=== PATIENT | female | born 1950 | race Caucasian/White ===

== ENCOUNTER 2023-07-01 15:15 | Outpatient (OUT) | payer MEDICARE, OTHER, SELFPAY ==
--- NOTE | 2023-07-01 15:29 | XR_ITS ---
The [address] [address] Patient Name: LAURA LAWSON MRN: [id number] date: 1950 Sex: F Assigned Patient Location: [facility] Current Patient Location: [facility] Accession/Order Number: [id number] Exam Date: 07/01/2023 15:34 Report Date: 07/01/2023 16:02 At the request of: ABRAHAM REILLY Procedure: XR chest 2V EXAM: XR chest 2V HISTORY: acute bronchitis J20.9 ; technologist notes state bronchitis and shortness of breath. COMPARISON: None. TECHNIQUE: PA and lateral views of the chest performed. FINDINGS: The trachea is unremarkable. There is mild enlargement of the cardiac mediastinal silhouette which is partially secured. There is mild atheromatous calcification at the aortic arch. There are low lung volumes with moderate elevation of the left hemidiaphragm. There is compressive atelectasis associated with the elevated left hemidiaphragm. There are patchy densities within the left perihilar region suggesting atelectasis and/or infiltrate. There is peribronchial cuffing at both hilar regions and be associated with bronchitis. There is no pleural effusion or pulmonary vascular congestion. There is no pneumothorax. The bony structures are osteopenic. There is no acute osseous adenopathy. There are moderate degenerative changes at the acromioclavicular and glenohumeral articulations bilaterally. There are endplate spurs along the spine. XR/XR chest 2V IMPRESSION: There are low lung volumes with moderate elevation of the left hemidiaphragm. There is compressive atelectasis associated with the elevated left hemidiaphragm. There are patchy densities within the left perihilar region suggesting atelectasis and/or infiltrate. There is also peribronchial cuffing within both hilar regions which can be associated with a bronchitis. Electronically authenticated by: GEREMIAS ROBERTS Date: 07/01/2023 16:02
== END 2023-07-01 15:16 | disposition home or self-care (01) ==
LOC: RAD 15:20
PROVIDERS: PCP Internal Medicine; Visit Provider Internal Medicine
DX: J20.9 Acute bronchitis, unspecified (principal)
CPT/HCPCS: 71046

== ENCOUNTER 2023-07-02 11:32 | Emergency (ER) | payer MEDICARE, OTHER, SELFPAY ==
[2023-07-02] VITALS (64 sets, daily range): BP systolic 153–207; BP diastolic 57–107; PULSE 53–150; RESP 16–33; TEMP 36.8; O2SAT 83–97; BMI 46.5
--- NOTE | 2023-07-02 12:07 | ECG_ITS ---
The [facility] Test Date: 2023-07-02 Pat Name: LAURA LAWSON Department: Room: - Gender: Female [employer]: : 1950 Requested By: ABRAHAM REILLY Order Number: [id number] Reading MD: EZIO SAMUELS Measurements Intervals [place] Rate: 67 P: 45 AK: 226 QRS: 150 QRSD: 124 T: -16 QT: 424 QTc: 439 Interpretive Statements 1100 Sinus rhythm 2231 First degree AV block LEFT BUNDLE BRANCH BLOCK with secondary ST/T waVE changes 5120 Possible right ventricular hypertrophy ST/T wave changes, can't exclude inferior ischemia 9150 abnormal ECG Electronically Signed On 07-03-2023 7:07:20 EST by EZIO SAMUELS
--- OUTSIDE RECORDS SUMMARY | 2023-07-02 12:24 | XMS_ITS | CCD ---
Author Name Unknown Address [address] [place] [address] Organization [facility] Care Team Providers Care Political Worker Name Role Phone PHYSICIAN, DEFAULT Admitting Unavailable PHYSICIAN, DEFAULT Attending Unavailable VLAD CESAR Primary Care Unavailable PHYSICIAN, DEFAULT Admitting Unavailable PHYSICIAN, DEFAULT Attending Unavailable VLAD CESAR Primary Care Unavailable Devang Saavedra Unavailable Abner Roa Unavailable MD Abner Roa Attending Provider MARK Cesar Primary Care Provider MD Abner Roa Admit Provider MARK Cesar Primary Care Provider MD Abner Roa Attending Provider MD Chidi Bowen Admit Provider MD Chidi Bowen Attending Provider KENDALL Mancilla Other Provider Unavailable KENDALL Linares Other Provider Unavailable KENDALL Benson Other Provider Unavailable KENDALL Borges Other Provider Unavailable KENDALL Luong Other Provider Unavailable KENDALL Gardner Other Provider Unavailable MD Meliton Schwartz Other Provider MD Fred Nash Other Provider DOTTY Serrano Other Provider DO Yesi Dickens Other Provider MD Alfredo Lacy Other Provider DO Graeme Davey Other Provider MD James Child Other Provider MD Chel Juarez Other Provider Kimmie, ANP-BC Tuyet Other Provider [phone] MD Justine Mercedes Other Provider MD Regan Hernandez Other Provider MD Adis Cote Other Provider MD Michael Vang Other Provider DO Anton Lane Other Provider MD Awais Bunn Other Provider MD Sonia Mckeon Other Provider MD Boubacar Weston Other Provider Solis NEGATIVE TURNER-C Latonia Fisher Other Provider MD Roman Rosales Other Provider MD Riccardo Jenkins Other Provider MD Edie Granados Other Provider MD Eddy Luu Other Provider DO Laine Swan Other Provider Al MD Clemente Servin Other Provider DO Edwardo Ramirez Other Provider DO Ziggy Vernon Other Provider DOTTY Degroot Other Provider DO Noam Albarado Other Provider MD Jacobo Montes Other Provider Kristie, RN Fariha Other Provider Unavailable MARK Cesar Primary Care Provider [phone] MD Abner Roa Admit Provider MD Abner Roa Attending Provider MD Chidi Bowen Admit Provider MD Chidi Bowen Attending Provider KENDALL Mancilla Other Provider Unavailable KENDALL Linares Other Provider Unavailable KENDALL Benson Other Provider Unavailable KENDALL Borges Other Provider Unavailable KENDALL Luong Other Provider Unavailable KENDALL Gardner Other Provider Unavailable MD Meliton Schwartz Other Provider MD Fred Nash Other Provider DOTTY Serrano Mirtha M Other Provider DO Yesi Dickens Other Provider MD Alfredo Lacy Other Provider DO Graeme Davey Other Provider MD James Child Other Provider MD Chel Juarez Other Provider Kimmie, ANP-BC Tuyet Other Provider MD Justine Mercedes Other Provider MD Regan Hernandez Other Provider MD Adis Cote Other Provider MD Michael Vang Other Provider DO Anton Lane Other Provider MD Awais Bunn Other Provider MD Sonia Mckeon Other Provider MD Boubacar Weston Other Provider SHANDRA Ely-Dodie Fisher Other Provider MD Roman Rosales Other Provider MD Riccardo Jenkins Other Provider MD Edie Granados Other Provider MD Eddy Luu Other Provider DO Laine Swan Other Provider MD Clemente Dempsey Other Provider DO Edwardo Ramirez R Other Provider DO Janeen Ziggy Mona Other Provider DOTTY Degroot Other Provider DO Noam Albarado Other Provider [phone] MD Jacobo Montes Other Provider KENDALL Flowers Other Provider Unavailable Cesar, II Vlad Primary Care Provider MD Abner Roa Attending Provider Cesar, II Vlad Primary Care Provider MD Abner Roa Attending Provider CESAR, DR ROSARIO Primary Care Unavailable HAY ., DR PRICE Attending Unavailable HAY ., DR PRICE Consulting Unavailable HAY ., DR PRICE Admitting Unavailable RUSSELL YATES Consulting Unavailable CESAR, DR ROSARIO Attending Unavailable CESAR, DR ROSARIO Consulting Unavailable CESAR, DR ROSARIO Primary Care Unavailable CESAR, DR ROSARIO Admitting Unavailable CESAR, DR ROSARIO Admitting Unavailable CESAR, DR ROSARIO Attending Unavailable CESAR, DR ROSARIO Consulting Unavailable CESAR, DR ROSARIO Primary Care Unavailable JULITO HERNANDEZ Attending Unavailable RAMÓN GARCIA Attending Unavailable Cesar, II Vlad Primary Care Provider [phone] MD Abner Roa Attending Provider Rai Roae E Admitting Unavailable Abner Roa E Attending Unavailable Vlad Cesar Primary Care Unavailable RoaRaie E Admitting Unavailable RoaRaie E Attending Unavailable Vlad Cesar Primary Care Unavailable Roa, Abner E Admitting Unavailable RoaAbner E Attending Unavailable Vlad Cesar Primary Care Unavailable RoaRaie E Admitting Unavailable RoaAbner E Attending Unavailable Vlad Cesar Primary Care Unavailable Roa, Abner E Admitting Unavailable Roa, Abner E Attending Unavailable Vlad Cesar Primary Care Unavailable VLAD CESAR Attending Unavailable MYA FELIX Attending Unavailable VLAD CESAR Attending Unavailable Allergies Allergy Classification Reported Allergen(s) Allergy Type Date of Onset Reaction(s) Facility (1 source) 08242,00; Translations: [80808,00] Propensity to adverse reactions (disorder) 11-11-200 9 [facility] Repository (17 sources) gabapentin Drug Allergy 2 chest pain [facility] (9 sources) traMADol; Translations: [tramadol] Drug Allergy 2 sleeplessness [facility] (1 source) gabapentin Drug Allergy 2 [facility] Repository Medications Current Medications Medication Drug Class(es) Dates Sig (Normalized) Sig (Original) acetaminophen 325 mg oral tablet (11 sources) Start: 03-21-2022 End: 04-03-2022 take 650 mg by mouth every four hours Acetaminophen Active 650 MG PO Q4H 100 April 03, 2022 12:00am allopurinol 300 mg oral tablet (20 sources) Xanthine Oxidase Inhibitor Start: 03-05-2022 End: 04-03-2022 take 300 mg by mouth once daily Allopurinol Active 300 MG PO Daily April 03, 2022 12:00am Aspir-81 (15 sources) Aspir-81 Active aspirin 81 mg delayed release oral tablet (13 sources) Platelet Aggregation Inhibitor, Nonsteroidal Anti-inflammatory Drug Start: 03-05-2022 End: 04-03-2022 take 81 mg by mouth once daily Aspirin Active 81 MG PO Daily April 03, 2022 12:00am atorvastatin 40 mg oral tablet (15 sources) HMG-CoA Reductase Inhibitor Start: 03-05-2022 End: 04-03-2022 take 40 mg by mouth once daily in the evening Atorvastatin Active 40 MG PO Every evening April 03, 2022 12:00am baclofen 10 mg oral tablet (20 sources) gamma-Aminobutyric Acid-ergic Agonist Start: 03-05-2022 End: 04-03-2022 take 10 mg by mouth once daily at bedtime Baclofen Active 10 MG PO Daily at bedtime April 03, 2022 12:00am bumetanide 1 mg oral tablet (20 sources) Loop Diuretic Start: 03-05-2022 End: 04-03-2022 take 1 mg by mouth once daily Bumetanide Active 1 MG PO Daily April 03, 2022 12:00am calcium carbonate 1250 mg oral tablet (13 sources) Start: 04-03-2022 Calcium Carbonate (Oyster Shell Calcium 500) 500 mg calcium (1,250 mg) Tablet Active 1000 MG PO Daily 60 April 03, 2022 12:00am Start: 03-05-2022 End: 04-03-2022 Calcium Carbonate (Calcium 6 00) 600 mg calcium (1,500 mg) Tablet Discontinued 1200 MG PO Daily March 05, 2022 12:00am April 03, 2022 8:52am Calcium Citrate (15 sources) take 1 tablet by mouth once daily Calcium Citrate 333 MG 1 tablet Orally Once a day Active cyclobenzaprine hydrochloride 10 mg oral tablet (11 sources) Muscle Relaxant Start: 03-21-20 End: 04-03-20 take 10 mg by mouth every eight hours Cyclobenzaprine Active 10 MG PO Every 8 hours April 03, 2022 12:00am docusate sodium 100 mg oral capsule (20 sources) Start: 04-03-20 take 200 mg by mouth once daily Docusate Sodium Active 200 MG PO Daily 60 April 03, 2022 12:00am Start: 03-05-2022 End: 04-03-2022 Docusate Sodium (Stool Softe ner) 100 mg Capsule Discontinued 200 MG PO Daily March 05, 2022 12:00am April 03, 2022 8:52am take [address] [facility] every twenty-four hours Stool Softener 100 MG 1 capsule as needed Orally Once a day Active docusate sodium 50 mg / sennosides, half-way 8.6 mg oral tablet (11 sources) Start: 03-21-2022 End: 04-03-2022 take 2 tablets by mouth twice daily Sennosides-Docusate Sodium (Stool Softener-Stimulant Laxat) 8.6-50 mg Tablet Active 2 TAB PO Twice daily April 03, 2022 12:00am dulaglutide (20 sources) GLP-1 Receptor Agonist Start: 04-03-2022 Dulaglutide (Trulicity) Active 1.5 MG SUBCUT Laguerre@0900 07 08April 02, 2022 11:00pm Start: 04-03-2022 Dulaglutide (T rulicity) Active 1.5 MG SUBCUT Laguerre@0900 07 08April 03, 2022 12:00am Start: 03-05-2022 End: 04-03-2022 Dulaglutide (Trulicity) 1.5 mg/0.5 mL Pen Injector Discontinued 1.5 MG SUBCUT every week March 05, 2022 12:00am April 03, 2022 8:52am gabapentin 100 mg oral capsule (2 sources) Anti-epileptic Agent Start: 11-08-2021 Gabapentin 100 MG 1 capsule Orally start daily at bedtime and increase by 1 tablet every 5 days until taking three times daily for 30 day(s) Nov, Active hydrALAZINE hydrochloride 50 mg oral tablet (20 sources) Arteriolar Vasodilator Start: 04-03-2022 take 100 mg by mouth three times daily Hydralazine Active 100 MG PO Three times daily 180 April 03, 2022 12:00am Start: 03-05-2022 End: 04-03-2022 take 100 mg by mouth three times daily Hydralazine Discontinued 100 MG PO Three times daily March 05, 2022 12:00am April 03, 2022 8:52am Start: 03-05-2022 take 100 mg by mouth twice daily Hydralazine Active 100 MG PO Twice daily March 05, 2022 12:00am Insulin Aspart U-100 (Novolog Flexpen U-100 Insulin) 100 unit/mL (3 mL) Insulin Pen (11 sources) Start: 04-03-2022 inject 1 dose by subcutaneous injection once at mealtime Insulin Aspart U-100 (Novolog Flexpen U-100 Insulin) 100 unit/mL (3 mL) Insulin Pen Active 1 sliding scale dose SUBCUT 3X/Day with meals and bedtime April 02, 2022 11:00pm Start: 04-03-2022 inject 1 dose by sub cutaneous injection once at mealtime Insulin Aspart U-100 (Novolog Flexpen U-100 Insulin) 100 unit/mL (3 mL) Insulin Pen Active 1 sliding scale dose SUBCUT 3X/Day with meals and bedtime April 03, 2022 12:00am Start: 03-21-2022 End: 04-03-2022 Insulin Aspart U-100 (Novolo g Flexpen U-100 Insulin) 100 unit/mL (3 mL) Insulin Pen Discontinued 0 UNITS SUBCUT 3X/Day with meals and bedtime March 20, 2022 11:00pm April 03, 2022 7:52am Start: 03-21-2022 End: 04-03-2022 Insulin Aspart U-100 (Novolo g Flexpen U-100 Insulin) 100 unit/mL (3 mL) Insulin Pen Discontinued 0 UNITS SUBCUT 3X/Day with meals and bedtime 0 March 21, 2022 12:00am April 03, 2022 8:52am Start: 03-21-2022 Insulin Aspart U-100 (Novolog Flexpen U-100 Insulin) 100 unit/mL (3 mL) Insulin Pen Active 0 UNITS SUBCUT 3X/Day with meals and bedtime 0 March 21, 2022 12:00am 3 ml insulin glargine 100 unt/ml pen injector (13 sources) Insulin Analog Start: 04-03-2022 Insulin Glargi ne (Lantus Solostar U-100 Insulin) 100 unit/mL (3 mL) Insulin Pen Active 40 UNIT SUBCUT Twice daily April 03, 2022 12:00am Start: 03-05-2022 End: 04-03-2022 Insulin Glargine U-300 Conc (Toujeo Max U-300 Solostar) 300 unit/mL (3 mL) Insulin Pen Discontinued 100 UNIT SUBCUT Daily March 05, 2022 12:00am April 03, 2022 8:52am irbesartan 300 mg oral tablet (5 sources) Angiotensin 2 Receptor Oniel Start: 04-03-2022 take 300 mg by mouth once daily Irbesartan Active 300 MG PO Daily April 03, 2022 12:00am labetalol hydrochloride 200 mg oral tablet (20 sources) beta-Adrenergic Oniel Start: 04-03-2022 take 200 mg by mouth twice daily Labetalol Active 200 MG PO Twice daily April 03, 2022 12:00am Start: 03-05-2022 End: 04-03-2022 take 300 mg by mouth twice daily Labetalol Discontinued 300 MG PO Twice daily March 05, 2022 12:00am April 03, 2022 8:52am metOLazone 2.5 mg oral tablet (20 sources) Thiazide-like Diuretic Start: 03-05-2022 End: 04-03-2022 Metolazone Active 2.5 MG PO MoWeFr@0900 13 April 03, 2022 12:00am naproxen 500 mg oral tablet (5 sources) Nonsteroidal Anti-inflammatory Drug Start: 04-03-2022 take 500 mg by mouth twice daily Naproxen Active 500 MG PO Twice daily 60 April 03, 2022 12:00am NIFEdipine 30 mg osmotic 24 hr extended release oral tablet (20 sources) Dihydropyridine Calcium Channel Oniel Start: 04-03-2022 take 30 mg by mouth once daily at bedtime Nifedipine Active 30 MG PO Daily at bedtime April 03, 2022 12:00am Start: 03-05-2022 End: 04-03-2022 take 30 mg by mouth once daily at bedtime Nifedipine Discontinued 30 MG PO Daily at bedtime March 05, 2022 12:00am April 03, 2022 8:52am nitroglycerin 0.3 mg sublingual tablet (15 sources) Nitrate Vasodilator Nitroglyceri n 0.3 MG as directed Sublingual prn Active NovoFine (15 sources) NovoFine Active omeprazole 20 mg delayed release oral capsule (20 sources) Proton Pump Inhibitor Start: take 20 mg by mouth once daily Omeprazole Active 20 MG PO Daily April 03, 2022 12:00am Start: 03-05-2022 End: 04-03-2022 take 20 mg by mouth once daily Omeprazole Discontinued 20 MG PO Daily March 05, 2022 12:00am April 03, 2022 8:52am take [address] [facility] once daily Omeprazole 40 MG 1 capsule 30 minutes before morning meal Orally Once a day Active microencapsulated potassium chloride 20 meq extended release oral tablet (20 sources) Start: 04-03-2022 Potassium Chlo ride (Klor-Con M20) 20 mEq Tablet,Er Particles/Crystals Active 20 MEQ PO Daily April 03, 2022 12:00am Start: 03-05-2022 End: 04-03-2022 take 20 mEq by mouth once daily Potassium Chloride Discontinued 20 MEQ PO Daily March 05, 2022 12:00am April 03, 2022 8:52am Start: 03-05-2022 take 20 mEq by mouth twice daily Potassium Chloride Active 20 MEQ PO Twice daily March 05, 2022 12:00am Potassium Chlori de 20 MEQ as directed Orally Once a day Active Probiotic - (2 sources) Probiotic - as d irected Orally Active SteriLance PA (15 sources) SteriLance PA Ac tive torsemide 20 mg oral tablet (2 sources) Loop Diuretic Torsemide 20 MG as directed Orally Active TOUMARGARITOO SOLOSTAR (15 sources) TOUMARGARITOO ARTOSTAR Active Completed/Discontinued Medications Medication Drug Class(es) Dates Sig (Normalized) Sig (Original) aluminum hydroxide 40 mg/ml / magnesium hydroxide 40 mg/ml / simethicone 4 mg/ml oral suspension (6 sources) Start: 03-21-2022 End: 04-03-2022 take 1 mL by mouth every four hours Alum-Mag Hydroxide-Simeth (Mag-Al Plus) 200-200-20 mg/5 mL Suspension Discontinued 30 ML PO Q4H 0 March 21, 2022 12:00am April 03, 2022 8:52am candesartan cilexetil 32 mg oral tablet (20 sources) Angiotensin 2 Receptor Oniel Start: 03-05-2022 End: 04-03-2022 take 32 mg by mouth once daily Candesartan Discontinued 32 MG PO Daily March 05, 2022 12:00am April 03, 2022 8:52am clopidogrel 75 mg oral tablet (20 sources) [id number] Platelet Inhibitor Start: 03-05-2022 End: 04-03-2022 take 1 tablet by mouth once daily Clopidogrel (Plavix) 75 mg Tablet Discontinued 75 MG PO Daily March 05, 2022 12:00am April 03, 2022 8:52am diazePAM 10 mg oral tablet (9 sources) Benzodiazepine Start: 12-07-2021 Valium 10 MG 1 tablet 30 minutes prior to procedure only take 2nd tablet if needed Orally Once a day for 1 days Dec, Not-Taking diphenhydrAMINE hydrochloride 25 mg oral capsule (6 sources) Histamine-1 Receptor Antagonist Start: 03-21-2022 End: 04-03-2022 take 25 mg by mouth every six hours Diphenhydramine Hcl Discontinued 25 MG PO Q6H 0 March 21, 2022 12:00am April 03, 2022 8:52am insulin lispro 100 unt/ml injectable solution (20 sources) Insulin Analog Start: 03-05-2022 End: 04-03-2022 inject 25 [IU] by subcutaneous injection once daily Insulin Lispro (Humalog U-100 Insulin) 100 unit/mL Solution Discontinued 25 UNIT SUBCUT Daily March 05, 2022 12:00am April 03, 2022 8:52am HumaLOG 100 UNIT /ML as directed Subcutaneous Once a day in AM Active Magnesium Hydroxide (6 sources) Start: 03-21-2022 End: 04-03-2022 take 1 mL by mouth at bedtime Magnesium Hydroxide (Milk Of Magnesia) 400 mg/5 mL Suspension Discontinued 30 ML PO Bedtime 0 March 20, 2022 11:00pm April 03, 2022 7:52am Start: 03-21-2022 End: 04-03-2022 take 1 mL by mouth at bedtime Magnesium Hydroxide (Mil k Of Magnesia) 400 mg/5 mL Suspension Discontinued 30 ML PO Bedtime 0 March 21, 2022 12:00am April 03, 2022 8:52am Start: 03-21-2022 take 1 mL by mouth at bedtime Magnesium Hydroxide (Milk Of Magnesia) 400 mg/5 mL Suspension Active 30 ML PO Bedtime 0 March 21, 2022 12:00am meloxicam 15 mg oral tablet (20 sources) Nonsteroidal Anti-inflammatory Drug Start: 03-05-2022 End: 04-03-2022 take 15 mg by mouth once daily Meloxicam Discontinued 15 MG PO Daily March 05, 2022 12:00am April 03, 2022 8:52am oxyCODONE hydrochloride 5 mg oral tablet (12 sources) Opioid Agonist Start: 03-21-2022 End: 04-03-2022 take 5 mg by mouth every six hours Oxycodone Discontinued 5 MG PO Every 6 hours 0 March 21, 2022 April 03, 2022 8:52am Start: 03-21-2022 End: 04-03-2022 take 10 mg by mouth every six hours Oxycodone Discontinued 10 MG PO Every 6 hours 0 March 21, 2022 April 03, 2022 8:52am predniSONE 10 mg oral tablet (6 sources) Start: 03-21-2022 End: 04-03-2022 take 40 mg by mouth once daily Prednisone Discontinued 40 MG PO Daily 0 March 21, 2022 12:00am April 03, 2022 8:52am traMADol hydrochloride 50 mg oral tablet (9 sources) Opioid Agonist Start: 12-07-2021 take 1 tablet by mouth every twenty-four hours traMADol HCl 50 MG 1 tablet as needed Orally Once a day for 30 days G89.29 Chronic pain Dec, Not-Taking Problems Active Problems Problem Classification Problem Date Documented Date Episodic/Chronic Acute myocardial infarction (7 sources) Myocardial infarction; Translations: [Acute myocardial infarction, unspecified] 03-23-2022 Chronic Administrative/social admission (7 sources) Other reduced mobility; Translations: [Impaired mobility and endurance] 03-23-2022 Episodic Congestive heart failure; nonhypertensive (4 sources) Unspecified diastolic (congestive) heart failure; Translations: [UNSPECIFIED DIASTOLIC HEART FAILURE] Onset: 05-17-2022 Chronic Coronary atherosclerosis and other heart disease (9 sources) Coronary arteriosclerosis; Translations: [Atherosclerotic heart disease of enterprise coronary artery without angina pectoris] Onset: 08-19-2022 03-23-2022 Chronic Diabetes mellitus without complication (8 sources) Type 2 diabetes mellitus; Translations: [Type 2 diabetes mellitus without complications] Onset: 05-16-2022 03-23-2022 Chronic Disorders of lipid metabolism (9 sources) Hyperlipidemia; Translations: [Hyperlipidemia, unspecified] Onset: 08-19-2022 03-23-2022 Chronic Esophageal disorders (5 sources) Gastroesophageal reflux disease; Translations: [Gastro-esophageal reflux disease without esophagitis] 03-23-2022 Chronic Essential hypertension (10 sources) Hypertensive disorder; Translations: [Essential (primary) hypertension] Onset: 05-16-2022 03-23-2022 Chronic Gout and other crystal arthropathies (5 sources) Gout; Translations: [Gout, unspecified] 03-23-2022 Chronic Osteoarthritis (14 sources) Localized, primary osteoarthritis of the pelvic region and thigh; Translations: [Unilateral primary osteoarthritis, left hip] Onset: 10-15-2021 Resolved: 10-15-2021 Chronic Osteoporosis (9 sources) Senile osteoporosis; Translations: [Age-related osteoporosis without current pathological fracture] Chronic Other acquired deformities (9 sources) Lumbar spondylolisthesis; Translations: [Spondylolisthesis, lumbar region] Episodic Other acquired deformities (6 sources) Spondylolisthesis, lumbar region Onset: 12-06-2021 Resolved: 01-15-2022 Episodic Other and ill-defined cerebrovascular disease (1 source) Other cerebrovascular disease; Translations: [OTHER CEREBROVASCULAR DISEASE] Onset: 05-20-2022 Chronic Other diseases of veins and lymphatics (2 sources) Venous insufficiency (chronic) (peripheral); Translations: [Venous insufficiency (chronic) (peripheral)] Onset: 08-19-2022 Episodic Other nervous system disorders (15 sources) Chronic pain; Translations: [Other chronic pain] Chronic Other nervous system disorders (5 sources) Other chronic pain Onset: 09-25-2021 Resolved: 12-07-2021 Chronic Other nervous system disorders (9 sources) Cervical myelopathy; Translations: [Disease of spinal cord, unspecified] Chronic Other nervous system disorders (1 source) Disease of spinal cord, unspecified Onset: 12-06-2021 Resolved: 12-06-2021 Chronic Other nutritional; endocrine; and metabolic disorders (5 sources) Body mass index 40+ - severely obese; Translations: [Morbid (severe) obesity due to excess calories] 03-23-2022 Chronic Other nutritional; endocrine; and metabolic disorders (2 sources) Morbid (severe) obesity due to excess calories; Translations: [Morbid obesity] 04-03-2022 Chronic Residual codes; unclassified (5 sources) Sleep apnea; Translations: [Sleep apnea, unspecified] 03-23-2022 Chronic Residual codes; unclassified (3 sources) Sleep apnea, unspecified; Translations: [Unspecified sleep apnea] Onset: 05-16-2022 04-03-2022 Chronic Spondylosis; intervertebral disc disorders; other back problems (20 sources) Solitary sacroiliitis; Translations: [Sacroiliitis, not elsewhere classified] Onset: 09-25-2021 Resolved: 01-15-2022 Chronic Spondylosis; intervertebral disc disorders; other back problems (20 sources) Radiculopathy, lumbar region; Translations: [Lumbar radiculopathy] Onset: 09-25-2021 Resolved: 01-15-2022 Episodic Unclassified (1 source) Spondylolisthesis, lumbar region; Translations: [Spondylolisthesis, lumbar region] Onset: 12-12-2022 Past or Other Problems Problem Classification Problem Date Documented Da te Episodic/Chronic Coronary atherosclerosis and other heart disease (2 sources) Presence of coronary angioplasty implant and graft; Translations: [Presence of coronary angioplasty implant and graft] Onset: 08-19-2022 Episodic Other aftercare (1 source) senior living (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 of aspirin; Translations: [HALFWAY CURRENT USE OF ASPIRIN] Onset: 05-16-2022 Episodic Other aftercare (1 source) senior living (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 of insulin; Translations: [LUBRICATION WORKER CURRENT USE OF INSULIN] Onset: 05-16-2022 Episodic Other aftercare (1 source) Other [facility]p (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 therapy; Translations: [OTH LUBRICATION WORKER CURRENT DRUG THERAPY] Onset: 05-16-2022 Episodic Other connective tissue disease (3 sources) Other specified soft tissue disorders; Translations: [OTHER SPEC SOFT TISSUE DISORDERS] Onset: 05-14-2022 Episodic Other connective tissue disease (1 source) Synovial cyst of popliteal space [Finch], right knee; Translations: [SYNOVIAL CYST POP SPACE RIGHT KNEE] Onset: 05-16-2022 Episodic Residual codes; unclassified (1 source) Asymptomatic menopausal state Onset: 12-06-2021 Resolved: 12-06-2021 Episodic Residual codes; unclassified (2 sources) Localized edema; Translations: [Localized edema] Onset: 08-19-2022 Episodic Skin and subcutaneous tissue infections (1 source) Cellulitis of right lower limb; Translations: [CELLULITIS OF RIGHT LOWER LIMB] Onset: 05-16-2022 Episodic Results Test Name Value Interpretation Reference Range Facility XR lumbar spine AP/LAT/FLX/E XTon 03-13-2023 XR lumbar spine AP/LAT/FLX/EXT [facility] [address] [place] [address] XRay Report Signed Patient: Laura Lawson MR#: [id number] : 1950 Acct:[id number] Age/Sex: 72 / F ADM Date: 03/13/23 Loc: Room: Type: [facility] Attending Dr: Abner Roa MD Copies to: Abner Roa MD Ordering Provider: Abner Roa MD Date of Service: 03/13/23 XR/XR lumbar spine AP/LAT/FLX/EXT: M54.16 AP with lateral neutral, flexion and extension views of the Lumbar Spine HISTORY: One-year postop assessment COMPARISON: 09/12/2022 POSTSURGICAL CHANGES: L3-L5 posterior and interbody fusion changes. No hardware failure. BONY ALIGNMENT: Similar bony alignment. No hypermobility. FRACTURE: None DEGENERATIVE CHANGES: Similar degenerative change. Hyperostosis. SOFT TISSUES: Atherosclerosis. BONY MINERALIZATION:Adequ ate XR/XR lumbar spine AP/LAT/FLX/EXT IMPRESSION: Stable postsurgical and degenerative changes. No hypermobility. Impression dictated by: Amaury Devlin M.D.03/13/2023 3:02 PM Dictation Location: [place] [address] Transcribed By: [facility] 03/13/23 1502 Dictated By: Amaury Devlin DO 03/13/23 1500 Signed By: 03/13/23 1502 [facility] Office Visiton 02-26-2023 Follow-up visit [id number] Laura Lawson 1950 F Date Provider [facility] 02/26/2023 Emily-RAMÓN GARCIA [facility] Family History Problem Relation Age of Onset JABARI disease Mother Heart attack Father Family Status - Relation Status Age at Mother Father Level of Service:[id number] ID OFFICE/OUTPATIENT ESTABLISHED MOD MDM 30-39 MIN Reason for Visit and Comments: Follow-up [915666] - 6 month Normal [facility] MG MAMM SCREEN 3D YANETH CADon 11-06-2022 MG MAMM SCREEN 3D YANETH CAD Patient: LAURA LAWSON. Exam Date: 11/06/2022 : 1950 Gender:F Ordering : DR VLAD CESAR M.D. Admission #: [id number] Family : Order #: [id number] CLICK HERE TO VIEW EXAM RADIOLOGY REPORT PROCEDURE: MAMMOGRAM SCREENING 3D BILATERAL CAD COMPARISON: MG MAMM SCREEN 3D YANETH CAD, 01/10/2021. MG MAMM SCREEN YANETH W CAD, 04/02/2019. MG MAMM SCREEN YANETH W CAD, 08/08/2016. DIGITIZED_MAMMO, 06/27/2005. INDICATIONS: Screening mammography Calculator Name NCI Breast Cancer Risk Assessment Tool 5 Year Breast Cancer Risk 1.90% Lifetime Breast Cancer Risk 5.90% Personal Breast Cancer No Personal Ovarian Cancer No Treatments None Family Cancers None LOCATION: [facility] BREAST COMPOSITION: Scattered areas fibroglandular density. FINDINGS: DIAGNOSTIC CATEGORY 2--BENIGN FINDING: RIGHT BREAST: No significant suspicious finding. Persistent dilated vessels. No significant change has occurred. LEFT BREAST: No significant suspicious finding. Persistent dilated vessels. Stable prominent axillary tail lymph node. No significant change has occurred. RECOMMENDATIONS: ROUTINE MAMMOGRAM AND CLINICAL EVALUATION IN 12 MONTHS. PLEASE NOTE: A NORMAL MAMMOGRAM DOES NOT EXCLUDE THE POSSIBILITY OF BREAST CANCER. A CLINICALLY SUSPICIOUS PALPABLE LUMP SHOULD BE BIOPSIED. Dictated by: Henry Villanueva M.D. on 11/06/2022 at 16:53 Approved by: Henry Villanueva M.D. on 11/06/2022 at 16:56 [facility] XR lumbar spine AP/LAT/FLX/E XTon 09-12-2022 XR lumbar spine AP/LAT/FLX/EXT [place] [address] XRay Report Signed Patient: Laura Lawson MR#: [id number] : 1950 Acct:[id number] Age/Sex: 71 / F ADM Date: 09/12/22 Loc: XD Room: Type: [facility] Attending Dr: Abner Roa MD Copies to: Abner Roa MD Ordering Provider: Abner Roa MD Date of Service: 09/12/22 XR/XR lumbar spine AP/LAT/FLX/EXT: M54.16 LUMBAR SPINE - 4 views CLINICAL HISTORY: Follow-up lumbar surgery. COMPARISON: Lumbar spine 06/13/2022 FINDINGS: Vertebral body heights appear maintained. Posterior hardware fixation L3-L5 without radiographic complication. No pathological motion on flexion or extension views. XR/XR lumbar spine AP/LAT/FLX/EXT IMPRESSION: NO EVIDENCE OF HARDWARE COMPLICATION. Impression dictated by: Chidi Flower Jr., D.O.09/12/2022 1:07 PM Dictation Location: [place] [address] Transcribed By: [facility] 09/12/22 1307 Dictated By: Chidi Flower Jr, DO 09/12/22 1306 Signed By: 09/12/22 1307 [facility] Office Visiton 08-19-2022 Follow-up visit [id number] Laura Lawson 1950 F Date Provider Department Center 08/19/2022 JULITO SALAZAR [facility] Family History Problem Relation Age of Onset JABARI disease Mother Heart attack Father Family Status - Relation Status Age at Mother Father Level of Service:[id number] ID OFFICE/OUTPATIENT ESTABLISHED LOW MDM 20-29 MIN Reason for Visit and Comments: Coronary Artery Disease [187] Hypertension [552962] Normal [facility] XR lumbar spine AP/LAT/FLX/E XTon 06-13-2022 XR lumbar spine AP/LAT/FLX/EXT [facility] [place] [address] [place] [address] XRay Report Signed Patient: Laura Lawson MR#: [id number] : 1950 Acct:[id number] Age/Sex: 71 / F ADM Date: 06/13/22 Loc: XD Room: Type: [facility] Attending Dr: Abner Roa MD Copies to: Abner Roa MD Ordering Provider: Abner Roa MD Date of Service: 06/13/22 XR/XR lumbar spine AP/LAT/FLX/EXT: M43.16 LUMBAR SPINE WITH FLEXION-EXTENSION VIEWS - 4 views CLINICAL DATA: Follow-up after fusion. Back pain. COMPARISON: 04/09/2022 Standing AP as well as lateral views in neutral, flexion and extension were obtained. There is osteopenia. Levoscoliotic curvature is present. Posterior rods, pedicle screws and interbody fusion devices are again seen from L3 through L5. The hardware appears intact and unchanged from the prior. There are no developing fractures. There is continued mild anterolisthesis of L4 with respect to adjacent vertebra. There is also minor retrolisthesis of L2 on L3. Alignment does not change significantly with flexion or extension. The disc spaces above and below the level of fusion are maintained. There is moderate endplate spurring, greater in the thoracolumbar region. There is lower lumbar facet disease. The SI joints are intact. There is atherosclerotic plaque at the aorta and iliac arteries. XR/XR lumbar spine AP/LAT/FLX/EXT IMPRESSION: OSTEOPENIA, SCOLIOSIS, POSTOPERATIVE AND DEGENERATIVE CHANGES SIMILAR TO THE PRIOR. Impression dictated by: Chelsea Camacho M.D.06/13/2022 3:20 PM Dictation Location: [place] [address] Transcribed By: LIBBY 06/13/22 1520 Dictated By: Chelsea Camacho MD 06/13/22 1518 Signed By: 06/13/22 1520 [facility] ECHOCARDIO M/2D COMPLETEon 1 07-18-2021 ECHOCARDIO M/2D COMPLETE Patient: LAURA LAWSON Exam Date: 05/17/2022 : 1950 Gender:F Ordering : DR VLAD CESAR M.D. Admission #: [id number] Family : DR JULITO HERNANDEZ M.D. Order #: [id number] CLICK HERE TO VIEW EXAM ECHOCARDIOGRAM REPORT PROCEDURE: CARDIO PULMONARY ECHOCARDIO M/2D COMP INDICATIONS: Diastolic CHF with preserved left ventricular function, PTCA, hypertension, diabetes COMPARISON: None. DESCRIPTION: COMPLETE ECHOCARDIOGRAM Real-time transthoracic echocardiography with 2D, M-mode, spectral and color flow Doppler performed. QUALITY: Technical quality was good. 63 265# BP 124/60 LEFT VENTRICLE: Normal chamber size. Mild concentric left ventricular hypertrophy. LV EF: Normal left ventricular ejection fraction, (>55%). DIASTOLIC: Grade I diastolic dysfunction. ATRIAL SEPTUM: Visually appears intact. LEFT ATRIUM: Moderate dilatation. RIGHT ATRIUM: Normal chamber size. RIGHT VENTRICLE: Normal chamber size. TRICUSPID VALVE: Normal mobility and thickness. No stenosis with no regurgitation. MITRAL VALVE: Mildly thickened with normal mobility. No evidence of mitral valve stenosis. Mild mitral annular calcification. No mitral regurgitation. AORTIC VALVE: Normal trileaflet appearance. Thickened aortic valve. Normal leaflet mobility. No evidence of aortic valve stenosis. No aortic regurgitation. AORTIC ROOT: Normal diameter and appearance. PULMONIC VALVE: Normal thickness and mobility. No stenosis. Trivial regurgitation. PERICARDIUM: No evidence of pericardial effusion. IVC: Collapses with inspirations. PLEURA: CONCLUSION: 1. Normal ventricular systolic function. LVEF is 60%. 2. Grade 1 diastolic dysfunction. 3. No significant valvular dysfunction. 4. No pericardial effusion. Adult Echocardiography Procedure Report Left Ventricle LVEDD (3.7 - 5.6 cm): 4.51 cm LVESD (2.2 - 4.0 cm): 2.84 cm LVIVS thickness (0.6 - 1.2 cm): 1.38 cm LVPW thickness (0.5 - 1.0 cm): 1.06 cm e': 0.05 m/s E - e': 19.50 LVOT Max Gradient: 4.36 mm[Hg] Peak Velocity (LVOT): 1.04 m/s LVOT Diameter 2.13 cm Left Ventricular Ejection Fraction: 60 % Left Atrium LA Volume Index (2D A2C): 131.60 ml, 131.60 ml Left Atrium Systolic Dimension: 4.60 cm Mitral Valve MV E to A Ratio: 0.79 Mitral Valve A-Wave Peak Velocity: 1.30 m/s Mitral Valve E-Wave Peak Velocity: 1.02 m/s Right Ventricle Aorta AO Root Diam: 2.95 cm Aortic Valve AoV Area (Peak Dixon): 3.08 cm2, 3.08 cm2 Peak Velocity(Antegrade Flow): 1.21 m/s Peak Gradient(Antegrade Flow): 5.82 mm[Hg] Tricuspid Valve Pulmonic Valve Mean Gradient: 3.65 mm[Hg] Mean Velocity: 0.89 m/s Peak Velocity: 1.33 m/s, 1.41 m/s Peak Gradient: 7.92 mm[Hg], 7.06 mm[Hg] Right Atrium Dictated by: Julito Hernandez M.D. on 05/17/2022 at 18:39 Approved by: Julito Hernandez M.D. on 05/17/2022 at 18:42 Normal [facility] CBC AUTO DIFFon 05-14-2022 BASO # 0.0 103/ul Normal 0.0-0.1 [facility] Comment on above: Performed By: #### C BC #### [facility] [address] [place] [address] Dr. Hieu Horvath Basophils/100 WBC (Bld) 0.5 % Normal 0.2-2.0 [facility] Comment on above: Performed By: #### C BC #### [facility] [address] [place] [address] Dr. Hieu Horvath EO # 0.2 103/ul Normal 0.0-0.7 [facility] Comment on above: Performed By: #### C BC #### [facility] [address] [place] [address] Dr. Hieu Horvath Eosinophils/100 WBC (Bld) 2.5 % Normal 0.9-7.0 [facility] Comment on above: Performed By: #### C BC #### [facility] [address] [place] [address] Dr. Hieu Horvath Erythrocyte distribution width (RBC) [Ratio] 14.0 % Normal 11.0-15.0 [facility] Comment on above: Performed By: #### C BC #### [facility] [address] [place] [address] Dr. Hieu Horvath Hematocrit (Bld) [Volume fraction] 35.5 % Critically low 36.0-48.0 [facility] Comment on above: Performed By: #### C BC #### [facility] [address] [place] [address] Dr. Hieu Horvath Hemoglobin (Bld) [Mass/Vol] 11.5 g/dL Critically low 12.0-16.0 [facility] Comment on above: Performed By: #### C BC #### [facility] [address] [place] [address] Dr. Hieu Horvath IG # 0.02 10e3/ul Normal 0.00-0.03 [facility] Comment on above: Performed By: #### C BC #### [facility] [address] [place] [address] Dr. Hieu Horvath IG % 0.2 % Normal 0.0-0.5 [facility] Comment on above: Performed By: #### C BC #### [facility] [address] [place] [address] Dr. Hieu Horvath LYMPH # 1.6 103/ul Normal 1.2-3.8 [facility] Comment on above: Performed By: #### C BC #### [facility] [address] [place] [address] Dr. Hieu Horvath Lymphocytes/100 WBC (Bld) 19.2 % Critically low 20.5-60.0 [facility] Comment on above: Performed By: #### C BC #### [facility] [address] [place] [address] Dr. Hieu Horvath MANUAL DIFF REQ NO Normal [facility] Comment on above: Performed By: #### C BC #### [facility] [address] [place] [address] Dr. Hieu Horvath MCH (RBC) [Entitic mass] 29.9 pg Normal 26.7-34.0 [facility] Comment on above: Performed By: #### C BC #### [facility] [address] [place] [address] Dr. Hieu Horvath MCHC (RBC) [Mass/Vol] 32.4 g/dL Normal 29.9-35.2 [facility] Comment on above: Performed By: #### C BC #### [facility] [address] [place] [address] Dr. Hieu Horvath MCV (RBC) [Entitic vol] 92.4 fL Normal 81.0-99.0 [facility] Comment on above: Performed By: #### C BC #### [facility] [address] [place] [address] Dr. Hieu Horvath MONO # 1.1 103/ul Critically high 0.3-0.8 [facility] Comment on above: Performed By: #### C BC #### [facility] [address] [place] [address] Dr. Hieu Horvath Monocytes/100 WBC (Bld) 12.4 % Critically high 1.7-12. 0 [facility] Comment on above: Performed By: #### C BC #### [facility] [address] [place] [address] Dr. Hieu Horvath NEUT # 5.6 103/ul Normal 1.4-6.5 [facility] Comment on above: Performed By: #### C BC #### [facility] [address] [place] [address] Dr. Hieu Horvath Neutrophils/100 WBC (Bld) 65.2 % Normal 43.0-75.0 [facility] Comment on above: Performed By: #### C BC #### [facility] [address] [place] [address] Dr. Hieu Horvath Platelet mean volume (Bld) [Entitic vol] 8.9 fL Critically low 9.5-13.5 [facility] Comment on above: Performed By: #### C BC #### [facility] [address] [place] [address] Dr. Hieu Horvath PLT 342 103/ul Normal 150-450 [facility] Comment on above: Performed By: #### C BC #### [facility] [address] [place] [address] Dr. Hieu Horvath RBC 3.84 106/ul Critically low 4.20-5.40 [facility] Comment on above: Performed By: #### C BC #### [facility] [address] [place] [address] Dr. Hieu Horvath WBC 8.5 103/ul Normal 4.0-11.0 [facility] Comment on above: Performed By: #### C BC #### [facility] [address] [place] [address] Dr. Hieu Horvath CULTURE BLOODon 05-14-2022 Microscopic examination of blood, culture Culture Observations: NO GROWTH AT 5 DAYS. Normal [facility] Comment on above: Performed By: #### B LDCX2 #### [facility] [address] [place] [address] Dr. Hieu Horvath Performed By: #### B LDCX1 #### [facility] [address] [place] [address] Dr. Hieu Horvath LACTATE/LACTIC ACIDon 2021 Lactate [Moles/Vol] 1.8 mmol/L Normal 0.4-1.[address] [facility] Comment on above: Performed By: #### L ACT #### [facility] [address] [place] [address] Dr. Hieu Horvath PROF CHEM 8 (BAS METB)on Anion gap [Moles/Vol] 10.3 mmol/L Normal [facility] Comment on above: Performed By: #### B MP #### [facility] [address] [place] [address] Dr. Hieu Horvath Calcium [Mass/Vol] 9.8 mg/dL Normal 8.5-10.1 [facility] Comment on above: Performed By: #### B MP #### [facility] [address] [place] [address] [address] Hieu Horvath Chloride [Moles/Vol] 95 mmol/L Critically low 98-107 [facility] Comment on above: Performed By: #### B MP #### [facility] [address] [place] [address] [address] Hieu Horvath CO2 [Moles/Vol] 31.4 mmol/L Normal 21.0-32.0 [facility] Comment on above: Performed By: #### B MP #### [facility] [address] [place] [address] [address] Hieu Horvath Creatinine [Mass/Vol] 1.13 mg/dL Critically high 0.55-1.02 [facility] Comment on above: Performed By: #### B MP #### [facility] [address] [place] [address] Dr. Hieu Horvath EGFR-AF EGYPTIAN 58 mL/min/1.73m2 Critically low >=60 [facility] Comment on above: Performed By: #### B MP #### [facility] [address] [place] [address] [address] Hieu Horvath EGFR-NON AF EGYPTIAN 48 mL/min/1.73m2 Critically low >=60 [facility] Comment on above: Performed By: #### B MP #### [facility] [address] [place] [address] [address] Hieu Horvath Glucose [Mass/Vol] 370 mg/dL Critically high 74-106 [facility] Comment on above: Performed By: #### B MP #### [facility] [address] [place] [address] [address] Hieu Horvath Potassium [Moles/Vol] 3.7 mmol/L Normal 3.5-5.1 [facility] Comment on above: Performed By: #### B MP #### [facility] [address] [place] [address] [address] Hieu Horvath Sodium [Moles/Vol] 133 mmol/L Critically low 136-145 [facility] Comment on above: Performed By: #### B MP #### [facility] [address] [place] [address] Dr. Hieu Horvath Urea nitrogen [Mass/Vol] 29.0 mg/dL Critically high 7.0-18 .0 [facility] Comment on above: Performed By: #### B MP #### [facility] [address] [place] [address] [address] Hieu Horvath Urea nitrogen/Creatinine [Mass ratio] 25.7 mg/mg Normal [facility] Comment on above: Performed By: #### B MP #### [facility] [address] [place] [address] [address] Hieu Horvath US JAKE DOP LEG RTon 05-14-20 22 US JAKE DOP LEG RT US JAKE DOP LEG RT CLINICAL HISTORY: Localized swelling of right lower leg. COMPARISON: None Available. TECHNIQUE: Ultrasound doppler evaluation of the right lower extremity using compression, color doppler and augmentation maneuvers during spectral doppler analysis. FINDINGS: Common femoral vein: Patent. Deep femoral vein: Patent Femoral vein: Patent. Popliteal vein: Patent. Tibioperoneal veins: Patent. Greater saphenous vein: Patent. Right-sided Finch's cyst measures 4.7 x 3.3 x 2.5 IMPRESSION: No right lower extremity deep venous thrombosis. Right-sided Finch's cyst. Electronically authenticated by: RUSSELL YATES Date: 2022-05-14 17:04 Normal [facility] Glucose Glucometer (BldC) [M ass/Vol]Ordered By: Chidi Bowen on 04-03-2022 Glucose [Mass/Vol] 187 mg/dL [facility] Comment on above: Random Glucose Refer ence Range is dependent on time and content of last meal. Glucose of more than 200 mg/dL in a nonstressed, ambulatory subject supports the diagnosis of Diabetes Mellitus. No Panel InformationOrdered By: Chidi Bowen on 04-03-2022 Bedside Glucose Comment Glu2: cleaned meter [facility] No Panel InformationOrdered By: Chidi Bowen on 03-28-2022 Bedside Glucose #2 Comment Will notify /kendall [facility] Glucose mean value [Mass/vol ume] in Blood Estimated from glycated hemoglobinOrdered By: Tuyet Burks on 03-24-2022 Average glucose Estimated from glycated hemoglobin (Bld) [Mass/Vol] 203 mg/dL [facility] Hemoglobin A1c percentageOrd ered By: Tuyet Burks on 03-24-2022 HbA1c (Bld) [Mass fraction] 8.7 % 4.3-5.6 [facility] Comment on above: Increased risk for d iabetes: 5.7 - 6.4diabetes: >6.4glycemic control for adults with diabetes: <7.0 Albumin [Mass/volume] in Ser um or PlasmaOrdered By: Chidi Bowen on 03-23-2022 Albumin [Mass/Vol] 2.9 g/dL 3.2-5.5 [facility] Basophils Auto (Bld) [#/Vol] Ordered By: Chidi Bowen on 03-23-2022 Basophils (Bld) [#/Vol] 0.0 10*3/uL 0.0-0.2 [facility] Basophils/100 WBC Auto (Bld) Ordered By: Chidi Bowen on 03-23-2022 Basophils/100 WBC (Bld) 0.4 % . [facility] Creatinine and Glomerular fi ltration rate.predicted panel (S/P/Bld)Ordered By: Chidi Bowen on 03-23-2022 Creatinine [Mass/Vol] 0.97 mg/dL 0.44-1.03 [facility] Eosinophils Auto (Bld) [#/Vo l]Ordered By: Chidi Bowen on 03-23-2022 Eosinophils (Bld) [#/Vol] 0.1 10*3/uL 0.0-0.45 [facility] Eosinophils/100 WBC Auto (Bl d)Ordered By: Chidi Bowen on 03-23-2022 Eosinophils/100 WBC (Bld) 1.1 % . [facility] Erythrocyte distribution wid th Auto (RBC) [Ratio]Ordered By: Chidi Bowen on 03-23-2022 Erythrocyte distribution width (RBC) [Ratio] 14.2 % 11.9-15.3 [facility] Estimated glomerular filtrat ion rate (GFR) non- AmericanOrdered By: Chidi Bowen on 03-23-2022 GFR/1.73 sq M.predicted among non-blacks MDRD (S/P/Bld) [Vol rate/Area] 57 mL/Min [facility] Globulin Calc (S) [Mass/Vol] Ordered By: Chidi Bowen on 03-23-2022 Globulin (S) [Mass/Vol] 2.7 g/dL [facility] Hematocrit Auto (Bld) [Volum e fraction]Ordered By: Chidi Bowen on 03-23-2022 Hematocrit (Bld) [Volume fraction] 33.0 % 34.0-46.4 [facility] Hemoglobin [Mass/volume] in BloodOrdered By: Chidi Bowen on 03-23-2022 Hemoglobin (Bld) [Mass/Vol] 10.9 g/dL 11.8-15.4 [facility] Laboratory - Hematology and Cell countsOrdered By: Chidi Bowen on 03-23-2022 Nucleated RBC/100 WBC (Bld) [Ratio] 0.1 % 0-0.5 [facility] Leukocytes [#/volume] in Blo od by Automated countOrdered By: Chidi Bowen on 03-23-2022 WBC (Bld) [#/Vol] 12.0 10*3/uL 4.5-11.0 [facility] Lymphocytes Auto (Bld) [#/Vo l]Ordered By: Chidi Boewn on 03-23-2022 Lymphocytes (Bld) [#/Vol] 1.8 10*3/uL 1.00-4.8 [facility] Lymphocytes/100 WBC Auto (Bl d)Ordered By: Chidi Bowen on 03-23-2022 Lymphocytes/100 WBC (Bld) 15.0 % . [facility] MCH Auto (RBC) [Entitic mass ]Ordered By: Chidi Bowen on 03-23-2022 MCH (RBC) [Entitic mass] 30.3 pg 24.7-34.3 [facility] MCHC Auto (RBC) [Mass/Vol]Or dered By: Chidi Bowen on 03-23-2022 MCHC (RBC) [Mass/Vol] 33.2 g/dL 32.0-35.0 [facility] MCV Auto (RBC) [Entitic vol] Ordered By: Chidi Bowen on 03-23-2022 MCV (RBC) [Entitic vol] 91.4 fL 80-100 [facility] Monocytes Auto (Bld) [#/Vol] Ordered By: Chidi Bowen on 03-23-2022 Monocytes (Bld) [#/Vol] 1.2 10*3/uL 0.0-0.8 [facility] Monocytes/100 WBC Auto (Bld) Ordered By: Chidi Bowen on 03-23-2022 Monocytes/100 WBC (Bld) 9.8 % . [facility] Neutrophils Auto (Bld) [#/Vo l]Ordered By: Chidi Bowen on 03-23-2022 Neutrophils (Bld) [#/Vol] 8.9 10*3/uL 1.8-7.7 [facility] Neutrophils/100 WBC Auto (Bl d)Ordered By: Chidi Bowen on 03-23-2022 Neutrophils/100 WBC (Bld) 73.7 % . [facility] No Panel InformationOrdered By: Chidi Bowen on 03-23-2022 Estimated GFR () > 60 mL/Min [facility] Comment on above: GFR estimated refere nce range: According to KDOQI guidelines, <60 ml/min/1.73m2 is sufficient to diagnose a patient with chronic kidney disease. Pharmacy Creatinine Clearance (Chem 67.19 [facility] Platelet mean volume Auto (B ld) [Entitic vol]Ordered By: Chidi Bowen on 03-23-2022 Platelet mean volume (Bld) [Entitic vol] 7.3 fL 6.3-10.7 [facility] Platelets Auto (Bld) [#/Vol] Ordered By: Chidi Bowen on 03-23-2022 Platelets (Bld) [#/Vol] 309 10*3/uL 150-450 [facility] Protein [Mass/volume] in Ser um or PlasmaOrdered By: Chidi Bowen on 03-23-2022 Protein [Mass/Vol] 5.6 g/dL 6.1-7.9 [facility] RBC Auto (Bld) [#/Vol]Ordere d By: Chidi Bowen on 03-23-2022 RBC (Bld) [#/Vol] 3.61 10*6/uL 3.60-5.00 [facility] Serum or plasma alanine ng otransferase measurement without P-5'-P (enzymatic activiOrdered By: Chidi Bowen on 03-23-2022 ALT No additional P-5'-P [Catalytic activity/Vol] 28 U/L 10-60 [facility] Serum or plasma albumin/glob ulin mass ratioOrdered By: Chidi Bowen on 03-23-2022 Albumin/Globulin [Mass ratio] 1.1 {ratio} [facility] Serum or plasma alkaline areli sphatase measurement (enzymatic activity/volume)Ordered By: Chidi Bowen on 03-23-2022 ALP [Catalytic activity/Vol] 57 U/L 32-92 [facility] Serum or plasma anion gap de terminationOrdered By: Chidi Bowen on 03-23-2022 Anion gap [Moles/Vol] 10.9 mmol/L 6.0-15.0 [facility] Serum or plasma aspartate am inotransferase measurement (enzymatic activity/volume)Ordered By: Chidi Bowen on 03-23-2022 AST [Catalytic activity/Vol] 26 U/L 10-42 [facility] Serum or plasma calcium annabel urement (mass/volume)Ordered By: Chidi Bowen on 03-23-2022 Calcium [Mass/Vol] 10.0 mg/dL 8.2-10.2 [facility] Serum or plasma chloride meagan surement (moles/volume)Ordered By: Chidi Bowen on 03-23-2022 Chloride [Moles/Vol] 100 mmol/L 95-114 [facility] Serum or plasma glucose annabel urement (mass/volume)Ordered By: Chidi Bowen on 03-23-2022 Glucose [Mass/Vol] 101 mg/dL 70-100 [facility] Comment on above: ADA recommended refe rence rangeRandom Glucose Reference Range is dependent on time and content of last meal. Glucose of more than 200 mg/dL in a nonstressed, ambulatory subject supports the diagnosis of Diabetes Mellitus. Serum or plasma potassium me asurement (moles/volume)Ordered By: Chidi Bowen on 03-23-2022 Potassium [Moles/Vol] 3.6 mmol/L 3.5-5.1 [facility] Serum or plasma prealbumin m easurement (mass/volume)Ordered By: Chidi Bowen on 03-23-2022 Prealbumin [Mass/Vol] 16.4 mg/dL 18.0-38.0 [facility] Serum or plasma sodium measu rement (moles/volume)Ordered By: Chidi Bowen on 03-23-2022 Sodium [Moles/Vol] 137 mmol/L 136-146 [facility] Serum or plasma total biliru bin measurement (mass/volume)Ordered By: Chidi Bowen on 03-23-2022 Bilirubin [Mass/Vol] 0.6 mg/dL 0.3-1.2 [facility] Serum or plasma total carbon dioxide measurement (moles/volume)Ordered By: Chidi Bowen on 03-23-2022 CO2 [Moles/Vol] 29.7 mmol/L 22.0-30.0 [facility] Serum or plasma urea nitroge n measurement (mass/volume)Ordered By: Chidi Bowen on 03-23-2022 Urea nitrogen [Mass/Vol] 46 mg/dL 9-23 [facility] Glucose Glucometer (BldC) [M ass/Vol]Ordered By: Abner Roa on 03-22-2022 Glucose [Mass/Vol] 183 mg/dL [facility] Comment on above: Random Glucose Refer ence Range is dependent on time and content of last meal. Glucose of more than 200 mg/dL in a nonstressed, ambulatory subject supports the diagnosis of Diabetes Mellitus. No Panel InformationOrdered By: Abner Roa on 03-22-2022 Bedside Glucose Comment Glu2: cleaned meter [facility] COVID-19 Positive/NegativeOr dered By: Abner Roa on 03-20-2022 SARS-CoV-2 (COVID-19) N gene GUS+probe Ql (Resp) Negative Negative [facility] Comment on above: Testing for SARS-CoV -2 by RT-PCRThis test was developed and its performance characteristics determined by [employer] ([employer]) and validated at the [facility]. This test has not been FDA cleared or approved. This test has been authorized by FDA under an Emergency Use Authorization (EUA). This test has been validated in accordance with the FDA's Guidance Document (Policy for Diagnostics Testing in Laboratories Certified to Perform High Complexity Testing under CLIA prior to Emergency Use Authorization for Coronavirus Disease-2019 during the Public Health Emergency) issued on September 09, 2019. This test is only authorized for the duration of time the declaration that circumstances exist justifying the authorization of the emergency use of in vitro diagnostic tests for detection of SARS-CoV-2 virus and/or diagnosis of COVID-19 infection under section 564(b)(1) of the Act, 21 U.S.C. 360bbb-3(b)(1), unless the authorization is terminated or revoked sooner. No Panel InformationOrdered By: Abner Roa on 03-19-2022 Bedside Glucose #[address]/rn [facility] COVID-19 Positive/NegativeOr dered By: Abner Roa on 03-14-2022 SARS-CoV-2 (COVID-19) N gene GUS+probe Ql (Resp) Negative Negative [facility] Comment on above: Testing for SARS-CoV -2 by RT-PCRThis test was developed and its performance characteristics determined by [employer] ([employer]) and validated at the [facility]. This test has not been FDA cleared or approved. This test has been authorized by FDA under an Emergency Use Authorization (EUA). This test has been validated in accordance with the FDA's Guidance Document (Policy for Diagnostics Testing in Laboratories Certified to Perform High Complexity Testing under CLIA prior to Emergency Use Authorization for Coronavirus Disease-2019 during the Public Health Emergency) issued on September 09, 2019. This test is only authorized for the duration of time the declaration that circumstances exist justifying the authorization of the emergency use of in vitro diagnostic tests for detection of SARS-CoV-2 virus and/or diagnosis of COVID-19 infection under section 564(b)(1) of the Act, 21 U.S.C. 360bbb-3(b)(1), unless the authorization is terminated or revoked sooner. Basophils Auto (Bld) [#/Vol] Ordered By: Abner Roa on 03-05-2022 Basophils (Bld) [#/Vol] 0.0 10*3/uL 0.0-0.2 [facility] Basophils/100 WBC Auto (Bld) Ordered By: Abner Roa on 03-05-2022 Basophils/100 WBC (Bld) 0.4 % . [facility] Blood hemoglobin measurement (mass/volume)Ordered By: Abner Roa on 03-05-2022 Hemoglobin (Bld) [Mass/Vol] 11.8 g/dL 11.8-15.4 [facility] Blood leukocytes automated c ount (number/volume)Ordered By: Abner Roa on 03-05-2022 WBC (Bld) [#/Vol] 9.2 10*3/uL 4.5-11.0 [facility] Creatinine and Glomerular fi ltration rate.predicted panel (S/P/Bld)Ordered By: Abner Roa on 03-05-2022 Creatinine [Mass/Vol] 0.93 mg/dL 0.44-1.03 [facility] Eosinophils Auto (Bld) [#/Vo l]Ordered By: Abner Roa on 03-05-2022 Eosinophils (Bld) [#/Vol] 0.1 10*3/uL 0.0-0.45 [facility] Eosinophils/100 WBC Auto (Bl d)Ordered By: Abner Roa on 03-05-2022 Eosinophils/100 WBC (Bld) 1.4 % . [facility] Erythrocyte distribution wid th Auto (RBC) [Ratio]Ordered By: Abner Roa on 03-05-2022 Erythrocyte distribution width (RBC) [Ratio] 14.3 % 11.9-15.3 [facility] Estimated glomerular filtrat ion rate (GFR) non- AmericanOrdered By: Abner Roa on 03-05-2022 GFR/1.73 sq M.predicted among non-blacks MDRD (S/P/Bld) [Vol rate/Area] 60 mL/Min [facility] Hematocrit Auto (Bld) [Volum e fraction]Ordered By: Abner Roa on 03-05-2022 Hematocrit (Bld) [Volume fraction] 35.6 % 34.0-46.4 [facility] Laboratory - Hematology and Cell countsOrdered By: Abner Roa on 03-05-2022 Nucleated RBC/100 WBC (Bld) [Ratio] 0.0 % 0-0.5 [facility] Lymphocytes Auto (Bld) [#/Vo l]Ordered By: Abner Roa on 03-05-2022 Lymphocytes (Bld) [#/Vol] 1.4 10*3/uL 1.00-4.8 [facility] Lymphocytes/100 WBC Auto (Bl d)Ordered By: Abner Roa on 03-05-2022 Lymphocytes/100 WBC (Bld) 15.4 % . [facility] MCH Auto (RBC) [Entitic mass ]Ordered By: Abner Roa on 03-05-2022 MCH (RBC) [Entitic mass] 30.4 pg 24.7-34.3 [facility] MCHC Auto (RBC) [Mass/Vol]Or dered By: Abner Roa on 03-05-2022 MCHC (RBC) [Mass/Vol] 33.2 g/dL 32.0-35.[address] [facility] MCV Auto (RBC) [Entitic vol] Ordered By: Abner Roa on 03-05-2022 MCV (RBC) [Entitic vol] 91.7 fL 80-100 [facility] Monocytes Auto (Bld) [#/Vol] Ordered By: Abner Roa on 03-05-2022 Monocytes (Bld) [#/Vol] 0.8 10*3/uL 0.0-0.8 [facility] Monocytes/100 WBC Auto (Bld) Ordered By: Abner Roa on 03-05-2022 Monocytes/100 WBC (Bld) 9.2 % . [facility] Neutrophils Auto (Bld) [#/Vo l]Ordered By: Abner Roa on 03-05-2022 Neutrophils (Bld) [#/Vol] 6.8 10*3/uL 1.8-7.7 [facility] Neutrophils/100 WBC Auto (Bl d)Ordered By: Abner Roa on 03-05-2022 Neutrophils/100 WBC (Bld) 73.6 % . [facility] No Panel InformationOrdered By: Abner Roa on 03-05-2022 Estimated GFR () > 60 mL/Min [facility] Comment on above: GFR estimated refere nce range: According to KDOQI guidelines, <60 ml/min/1.73m2 is sufficient to diagnose a patient with chronic kidney disease. Pharmacy Creatinine Clearance (Chem N/A [facility] Platelet mean volume Auto (B ld) [Entitic vol]Ordered By: Abner Roa on 03-05-2022 Platelet mean volume (Bld) [Entitic vol] 7.5 fL 6.3-10.7 [facility] Platelets Auto (Bld) [#/Vol] Ordered By: Abner Roa on 03-05-2022 Platelets (Bld) [#/Vol] 285 10*3/uL 150-450 [facility] RBC Auto (Bld) [#/Vol]Ordere d By: Abner Roa on 03-05-2022 RBC (Bld) [#/Vol] 3.88 10*6/uL 3.60-5.00 [facility] Serum or plasma anion gap de terminationOrdered By: Abner Roa on 03-05-2022 Anion gap [Moles/Vol] 14.8 mmol/L 6.0-15.0 [facility] Serum or plasma calcium annabel urement (mass/volume)Ordered By: Abner Roa on 03-05-2022 Calcium [Mass/Vol] 10.1 mg/dL 8.2-10.2 [facility] Serum or plasma chloride meagan surement (moles/volume)Ordered By: Abner Roa on 03-05-2022 Chloride [Moles/Vol] 99 mmol/L 95-114 [facility] Serum or plasma glucose annabel urement (mass/volume)Ordered By: Abner Roa on 03-05-2022 Glucose [Mass/Vol] 206 mg/dL 70-100 [facility] Comment on above: ADA recommended refe rence rangeRandom Glucose Reference Range is dependent on time and content of last meal. Glucose of more than 200 mg/dL in a nonstressed, ambulatory subject supports the diagnosis of Diabetes Mellitus. Serum or plasma potassium me asurement (moles/volume)Ordered By: Abner Roa on 03-05-2022 Potassium [Moles/Vol] 4.5 mmol/L 3.5-5.1 [facility] Serum or plasma sodium measu rement (moles/volume)Ordered By: Abner Roa on 03-05-2022 Sodium [Moles/Vol] 136 mmol/L 136-146 [facility] Serum or plasma total carbon dioxide measurement (moles/volume)Ordered By: Abner Roa on 03-05-2022 CO2 [Moles/Vol] 26.7 mmol/L 22.0-30.0 [facility] Serum or plasma urea nitroge n measurement (mass/volume)Ordered By: Abner Roa on 03-05-2022 Urea nitrogen [Mass/Vol] 20 mg/dL 03-01 [facility] Diabetic Self Management Reji aurora 03-17-2020 Diabetic Self Management Education [id number] [facility] Coding Summary.on 04-08-2019 Coding Summary. CODING DATE: 04/08/2019 FINAL [facility] DSC STATUS: PAYOR: Medicare ADMIT DX: REASON FOR VISIT DX: Z71.3 Dietary counseling and surveillance FINAL DX: PRINCIPAL: Z71.3 Dietary counseling and surveillance SECONDARY: E11.65 Type 2 diabetes mellitus with hyperglycemia PROCEDURES DOCTOR NAME DATE NOTE: The code number assigned matches the documented diagnosis and / or procedure in the patient's chart. However, the narrative phrase printed from the coding software may appear abbreviated, or result in slightly different terminology. Coded By: Gloria Theodore CphT Date Saved: 04/08/2019 02:24 pm [facility] Vital Signs Date Time Vital Sign Value Performing Clinician Facility 03-13-2023 10:20-0400 Body height 162.56 cm Abner Roa Other [employer] Other 03-13-2023 10:20-0400 Body mass index (BMI) [Ratio] 45.83 kg/m2 Abner Roa Other [employer] Other 03-13-2023 10:20-0400 Body weight 121.11 kg Abner Roa Other [employer] Other 09-12-2022 10:40-0400 Body height 162.56 cm Abner Roa Other [employer] Other 09-12-2022 10:40-0400 Body mass index (BMI) [Ratio] 42.05 kg/m2 Abner Roa Other [employer] Other 09-12-2022 10:40-0400 Body weight 111.13 kg Abner Roa Other [employer] Other 09-12-2022 10:40-0400 Diastolic blood pressure 80 mm[Hg] Abner Roa Other [employer] Other 09-12-2022 10:40-0400 Systolic blood pressure 128 mm[Hg] Abnre Roa Other [employer] Other 06-13-2022 16:20-0500 Body height 162.56 cm Abner Roa Other [employer] Other 06-13-2022 16:20-0500 Body mass index (BMI) [Ratio] 42.91 kg/m2 Abner Roa Other [employer] Other 06-13-2022 16:20-0500 Body weight 113.4 kg Abner Roa Other [employer] Other 04-18-2022 12:00-0500 Body height 162.56 cm Abner Roa Other [employer] Other 04-18-2022 12:00-0500 Body mass index (BMI) [Ratio] 42.74 kg/m2 Abner Roa Other [employer] Other 04-18-2022 12:00-0500 Body weight 112.95 kg Abner Roa Other [employer] Other 04-03-2022 13:01-0400 Body temperature 97.7 [degF] II Vlad Cesar Work Phone: [facility] 04-03-2022 13:01-0400 Diastolic blood pressure 66 mm[Hg] II Vlad Cesar Work Phone: [facility] 04-03-2022 13:01-0400 Heart rate 61 /min II Vlad Cesar Work Phone: [facility] 04-03-2022 13:01-0400 Respiratory rate 20 /min II Vlad Cesar Work Phone: [facility] 04-03-2022 13:01-0400 SaO2% (BldA) [Mass fraction] 96 % II Vlad Cesar Work Phone: [facility] 04-03-2022 13:01-0400 Systolic blood pressure 149 mm[Hg] II Vlad Cesar Work Phone: [facility] 04-03-2022 07:05-0400 Body height 160.02 cm II Vlad Cesar Work Phone: [facility] 03-31-2022 06:02-0400 Body weight 115.1 kg II Vlad Cesar Work Phone: [facility] 03-22-2022 14:02-0400 Diastolic blood pressure 73 mm[Hg] II Vlad Cesar Work Phone: [facility] 03-22-2022 14:02-0400 Systolic blood pressure 134 mm[Hg] II Vlad Cesar Work Phone: [facility] 03-22-2022 11:12-0400 Body temperature 97.6 [degF] II Vlad Cesar Work Phone: [facility] 03-22-2022 11:12-0400 Heart rate 66 /min II Vlad Cesar Work Phone: [facility] 03-22-2022 11:12-0400 Respiratory rate 16 /min II Vlad Cesar Work Phone: [facility] 03-22-2022 11:12-0400 SaO2% (BldA) [Mass fraction] 95 % II Vlad Cesar Work Phone: [facility] 03-22-2022 06:41-0400 Body weight 116 kg II Vlad Cesar Work Phone: [facility] 03-20-2022 17:30-0400 Inhaled oxygen flow rate 2 L/min II Vlad Cesar Work Phone: [facility] 03-19-2022 09:55-0400 Body height 160.02 cm II Vlad Cesar Work Phone: [facility] 03-18-2022 08:15-0400 Body mass index (BMI) [Ratio] 44.5 kg/m2 II Vlad Cesar Work Phone: [facility] 01-15-2022 14:40-0400 Body height 162.56 cm Abner Roa Other [employer] Other 01-15-2022 14:40-0400 Body mass index (BMI) [Ratio] 42.74 kg/m2 Abner Roa Other [employer] Other 01-15-2022 14:40-0400 Body weight 112.95 kg Abner Roa Other [employer] Other 12-07-2021 12:30-0400 Body height 162.56 cm Devang Saavedra Other [employer] Other 12-07-2021 12:30-0400 Body mass index (BMI) [Ratio] 42.74 kg/m2 Dveang Saavedra Other [employer] Other 12-07-2021 12:30-0400 Body weight 112.95 kg Devang Saavedra Other [employer] Other 12-07-2021 12:30-0400 Diastolic blood pressure 76 mm[Hg] Devang Saavedra Other [employer] Other 12-07-2021 12:30-0400 Systolic blood pressure 132 mm[Hg] Devangolga Saavedra Other [employer] Other 12-06-2021 16:00-0400 Body height 162.56 cm Abner Roa Other [employer] Other 12-06-2021 16:00-0400 Body mass index (BMI) [Ratio] 43.59 kg/m2 Abner Roa Other [employer] Other 12-06-2021 16:00-0400 Body weight 115.21 kg Abner Roa Other [employer] Other 11-08-2021 17:15-0400 Body weight 115.21 kg Devang Saavedra Other [employer] Other 11-08-2021 17:15-0400 Diastolic blood pressure 72 mm[Hg] Devang Saavedra Other [employer] Other 11-08-2021 17:15-0400 SaO2% (BldA) [Mass fraction] 98 % Devang Saavedra Other [employer] Other 11-08-2021 17:15-0400 Systolic blood pressure 136 mm[Hg] Devang Saavedra Other [employer] Other 10-24-2021 17:15-0400 Body weight 115.21 kg Devang Saavedra Other [employer] Other 10-24-2021 17:15-0400 Diastolic blood pressure 70 mm[Hg] Devang Saavedra Other [employer] Other 10-24-2021 17:15-0400 Systolic blood pressure 116 mm[Hg] Devang Keri Other [employer] Other 10-15-2021 11:45-0400 Body weight 120.57 kg Devang Keri Other [employer] Other 10-15-2021 11:45-0400 Diastolic blood pressure 66 mm[Hg] Devang Keri Other [employer] Other 10-15-2021 11:45-0400 SaO2% (BldA) [Mass fraction] 93 % Devang Keri Other [employer] Other 10-15-2021 11:45-0400 Systolic blood pressure 124 mm[Hg] Devang Keri Other [employer] Other 09-25-2021 11:30-0400 Body weight 121.47 kg Devang Keri Other [employer] Other 09-25-2021 11:30-0400 Diastolic blood pressure 62 mm[Hg] Devang Keri Other [employer] Other 09-25-2021 11:30-0400 SaO2% (BldA) [Mass fraction] 97 % Devang Keri Other [employer] Other 09-25-2021 11:30-0400 Systolic blood pressure 138 mm[Hg] Devang Keri Other [employer] Other Encounters Encounter Date Encounter Type Care Provider Facility Start: 06-26-2023 End: 06-26-2023 ambulatory MYA S LIEBENTHAL Not Available Start: 06-25-2023 End: 06-25-2023 ambulatory VLAD CESAR Not Available Start: 04-21-2023 End: 04-21-2023 ambulatory VLAD CESAR Not Available Start: 03-13-2023 Office outpatient visit 15 minutes Abner Roa [facility] Start: 03-13-2023 End: 03-13-2023 ambulatory Abner E Roa Facility:[facility] Start: 03-13-2023 End: 03-13-2023 ambulatory II Vlad Cesar Work Phone: [facility] Work Phone: Start: 03-13-2023 End: 03-13-2023 Patient encounter procedure II Vlad Cesar Work Phone: [facility] [place] Work Phone: Start: 02-26-2023 End: 02-26-2023 ambulatory RAMÓN [facility] Start: 12-12-2022 End: 12-12-2022 ambulatory Abner E Roa Facility:[facility] Start: 11-06-[address] VLAD CESAR Facilit y:[facility] Start: 09-12-2022 Office outpatient visit 15 minutes Abner Roa [facility] Start: 09-12-2022 End: 09-12-2022 ambulatory Abner E Roa Facility:[facility] Start: 09-12-2022 End: 09-12-2022 ambulatory II Vlad Cesar Work Phone: [facility] Work Phone: Start: 09-12-2022 End: 09-12-2022 Patient encounter procedure II Vlad Cesar Work Phone: [facility] [place] Work Phone: Start: 08-19-2022 End: 08-19-2022 ambulatory JULITO GUTIERREZEVANGELISTA [facility] Start: 06-13-2022 End: 06-13-2022 ambulatory Abner Wahl Roa Facility:[facility] Start: 06-13-2022 End: 06-13-2022 Patient encounter procedure II Vlad Cesar Work Phone: [facility] [place] Work Phone: Start: 06-13-2022 End: 06-13-2022 ambulatory II Vlad Cesar Work Phone: [facility] Work Phone: Start: 06-13-2022 Postop follow up vis it related to original px Abner Roa [facility] Start: 05-17-2022 End: 05-18-[address] VLAD CESAR Facility:[facility] Start: 05-14-2022 End: 05-14-[address] VLAD CESAR Facility:[facility] Start: 05-09-2022 End: 05-09-2022 ambulatory Abner Vish Roa Facility:[facility] Start: 05-09-2022 End: 05-09-2022 ambulatory II Vlad Cesar Work Phone: [facility] Work Phone: Start: 05-09-2022 End: 05-09-2022 Discharged Recurring II Vlad Cesar Work Phone: [facility]-Physical Therapy [employer] Work Phone: Start: 05-09-2022 Registered Recurring II Vlad Cesar Work Phone: [facility]-Physical Therapy [place] Work Phone: Start: 04-18-2022 End: 04-18-2022 ambulatory Abner Roa Other [facility] [employer] Other Start: 04-18-2022 Postop follow up vis it related to original px Abner Roa [facility] Start: 04-09-2022 End: 04-09-2022 ambulatory II Vlad Cesar Work Phone: [facility] Work Phone: Start: 04-09-2022 End: 04-09-2022 Patient encounter procedure II Vlad Cesar Work Phone: [facility] [place] Start: 03-22-2022 End: 04-03-2022 Evaluation and management of inpatient II Vlad Cesar Work Phone: [facility] Start: 03-18-2022 [facility] Abner Roa [facility] Start: 03-18-2022 End: 03-18-2022 ambulatory Abner Roa Other [employer] Other Start: 03-18-2022 End: 03-22-2022 Evaluation and management of inpatient II Vlad Cesar Work Phone: [facility] Start: 03-14-2022 End: 03-14-2022 ambulatory II Vlad Cesar Work Phone: [facility] Work Phone: Start: 03-14-2022 End: 03-14-2022 Patient encounter procedure II Vlad Cesar Work Phone: [facility] Start: 03-05-2022 End: 03-05-2022 ambulatory II Vlad Cesar Work Phone: [facility] Work Phone: Start: 03-05-2022 End: 03-05-2022 Patient encounter procedure II Vlad Cesar Work Phone: [facility] Start: 01-15-2022 End: 01-15-2022 ambulatory Abner Roa Other [employer] Other Start: 01-15-2022 Office outpatient visit 40 minutes Abner Roa [facility] Start: 01-09-2022 End: 01-09-2022 Patient encounter procedure MD Abner Roa Work Phone: [facility] Start: 01-07-2022 End: 01-07-2022 ambulatory Devang Saavedra Other [employer] Other Start: 01-07-2022 Telephone encounter Devang Keri [facility] Start: 01-03-2022 End: 01-03-2022 Patient encounter procedure MD Abner Roa Work Phone: [facility] [place] Start: 12-07-2021 End: 12-07-2021 ambulatory Devang Keri Other [employer] Other Start: 12-07-2021 Office outpatient visit 25 minutes Devang Keri [facility] [place] Start: 12-06-2021 End: 12-06-2021 ambulatory Abner Roa Other [employer] Other Start: 12-06-2021 Office outpatient ne w 30 minutes Abner Roa [facility] Start: 11-09-2021 End: 11-09-2021 ambulatory Abner Roa Other [employer] Other Start: 11-09-2021 Telephone encounter Abner Roa [facility] Start: 11-08-2021 End: 11-08-2021 ambulatory Devang Keri Other [employer] Other Start: 11-08-2021 Office outpatient visit 25 minutes Devang Keri [facility] Start: 10-24-2021 End: 10-24-2021 ambulatory Devang Keri Other [employer] Other Start: 10-24-2021 Office outpatient visit 25 minutes Devang Keri [facility] Start: 10-15-2021 End: 10-15-2021 ambulatory Devang Keri Other [employer] Other Start: 10-15-2021 Office outpatient visit 25 minutes Devang Keri [facility] Start: 10-04-2021 (Procedure) Short Devang Keri [facility] Start: 10-04-2021 End: 10-04-2021 ambulatory Devang Keri Other [employer] Other Start: 09-25-2021 End: 09-25-2021 ambulatory Devang Saavedra Other [employer] Other Start: 09-25-2021 Office outpatient ne w 45 minutes Devang Saavedra [facility] Start: 08-18-2018 End: 08-19-2018 Patient encounter procedure DEFAULT PHYSICIAN Facility:[facility] Start: 08-17-2018 End: 08-18-2018 Patient encounter procedure DEFAULT PHYSICIAN Facility:[facility] Procedures Date Procedure Procedure Detail Performing Clinician Start: 03-13-2023 X-ray of lumbar spine, four views MARK Vlad Cesar Work Phone: Start: 09-12-2022 X-ray of lumbar spine, four views II Vlad Cesar Work Phone: Start: 06-13-2022 X-ray of lumbar spine, four views II Vlad Cesar Work Phone: Start: 04-09-2022 X-ray of lumbar spine, two or three views II Vlad Cesar Work Phone: Start: 03-24-2022 Duplex scan of lower limb veins MARK Vlad Cesar Work Phone: Start: 03-18-2022 OR XLIF Lumbar Lateral Interbody Fusion (Not Applicable) MARK Vlad Cesar Work Phone: Start: 03-18-2022 X-ray of lumbar spine, two or three views MARK Vlad Cesar Work Phone: Start: 01-09-2022 Dual energy X-ray absorptiometry MD Abner Roa Work Phone: Start: 01-03-2022 X-ray of lumbar spine, six views including bending views MD Abner Roa Work Phone: Start: 01-03-2022 XR pre/post mri xray MD Abner Roa Work Phone: Start: 01-03-2022 MRI of cervical spine without contrast MD Abner Roa Work Phone: History of decompres renard of median nerve History of carpal tunnel surgery of right wrist II Vlad Cesar Work Phone: Plan of Treatment Date Care Activity Detail Author Start: 04-03-2022 [facility] Start: 03-22-2022 Hospital admission [facility] Start: 03-22-2022 Referral to clinical refrigeration person [facility] Start: 03-21-2022 [facility] Start: 03-18-2022 Computer Assisted Procedure of Trunk Region Computer Assisted Procedure of Trunk Region [facility] Start: 03-18-2022 Excision of Lumbar Vertebral Disc, Open Approach Excision of Lumbar Vertebral Disc, Open Approach [facility] Start: 03-18-2022 Fusion of 2 or more Lumbar Vertebral Joints with Interbody Fusion Device, Anterior Approach, Anterior Column, Open Approach Fusion of 2 or more Lumbar Vertebral Joints with Interbody Fusion Device, Anterior Approach, Anterior Column, Open Approach [facility] Start: 03-18-2022 Fusion of 2 or more Lumbar Vertebral Joints with Synthetic Substitute, Posterior Approach, Posterior Column, Open Approach Fusion of 2 or more Lumbar Vertebral Joints with Synthetic Substitute, Posterior Approach, Posterior Column, Open Approach [facility] Start: 03-18-2022 Introduction of Recombinant Bone Morphogenetic Protein into Joints, Open Approach Introduction of Recombinant Bone Morphogenetic Protein into Joints, Open Approach [facility] Start: 01-09-2022 Dual energy X-ray absorptiometry XR dexa axial skeleton [facility] Start: 01-09-2022 End: 01-09-2022 Patient encounter procedure Departed Clinical [facility] Patient Education TLSO and LSO [facility] Work Phone: Patient referral [facility] Work Phone: [facility] Payers Date Payer Category Payer Self-pay [id number] 1957 Medicare [id number] 2.1 [id number] 1957 Private Health Insurance [id number] 1950 Unknown [id number] 2.16.8 40.1.553576.3.579.2.647 1950 Unknown [id number] 2.16.8 40.1.720325.3.579.2.647 1950 Unknown [id number] 2.16.84 0.1.504064.3.579.2.593 1950 Unknown [id number] 2.16.84 0.1.962676.3.579.2.593 1950 Unknown [id number] 2.16.84 0.1.032030.3.579.2.593 1950 Unknown [id number] 2.16.84 0.1.423097.3.579.2.1259 1950 Unknown [id number] 2.16.84 0.1.889480.3.579.2.1259 1950 Unknown [id number] 2.16.840. 1.321356.3.579.2.1259 Unknown Unknown [id number] 2.16.8 40.1.772860.3.579.2.531 Unknown [id number] 2.16.8 40.1.330280.3.579.2.531 Unknown [id number] 2.16.8 40.1.560691.3.579.2.531 Unknown [id number] 2.16.8 40.1.963133.3.579.2.531 Unknown [id number] 2.16.8 40.1.248554.3.579.2.531 Social History Date Type Detail Facility Sex Assigned At [employer] Other Start: 1950 Sex Assigned At Female F [facility] Start: 03-05-2022 End: 03-23-2022 Tobacco smoking status MDIS Never smoked tobacco (finding) [facility] Medical Equipment Procedure Code Equipment Code Equipment Origin al Text Equipment Identifier Dates Fusion, spine, lumbar, XLIF STRATOFUSE DBM 10CC FDA Start: 03-18-2022 Fusion, spine, lumbar, XLIF Bone-screw internal spinal fixation system, non-sterile [id number] FDA Start: 03-18-2022 Fusion, spine, lumbar, XLIF Orthopaedic bone screw, non-bioabsorbable, non-sterile [id number] FDA Start: 03-18-2022 Fusion, spine, lumbar, XLIF Orthopaedic instrument surgical connector [id number] FDA Start: 03-18-2022 Fusion, spine, lumbar, XLIF Bone-screw internal spinal fixation system, non-sterile [id number] FDA Start: 03-18-2022 Fusion, spine, lumbar, XLIF STRATOFUSE DBM 5CC FDA Start: 03-18-2022 Fusion, spine, lumbar, XLIF Spinal fusion graft kit [id number] FDA Start: 03-18-2022 Fusion, spine, lumbar, XLIF Metallic spinal fusion cage, non-sterile [id number] FDA Start: 03-18-2022 Fusion, spine, lumbar, XLIF Metallic spinal fusion cage, non-sterile [id number] FDA Start: 03-18-2022 Fusion, spine, lumbar, XLIF STRATOFUSE DBM 10CC FDA Start: 03-18-2022 Fusion, spine, lumbar, XLIF STRATOFUSE DBM 5CC FDA Start: 03-18-2022 Fusion, spine, lumbar, XLIF STRATOFUSE DBM 10CC FDA Start: 03-18-2022 Fusion, spine, lumbar, XLIF STRATOFUSE DBM 5CC FDA Start: 03-18-2022 Fusion, spine, lumbar, XLIF STRATOFUSE DBM 10CC FDA Start: 03-18-2022 Fusion, spine, lumbar, XLIF STRATOFUSE DBM 5CC FDA Start: 03-18-2022 Fusion, spine, lumbar, XLIF STRATOFUSE DBM 10CC FDA Start: 03-18-2022 Fusion, spine, lumbar, XLIF STRATOFUSE DBM 5CC FDA Start: 03-18-2022 Fusion, spine, lumbar, XLIF STRATOFUSE DBM 10CC FDA Start: 03-18-2022 Fusion, spine, lumbar, XLIF STRATOFUSE DBM 5CC FDA Start: 03-18-2022 Goals Date Patient Goal Desired Activity /State Functional Status Date Assessment Result Facility 04-03-2022 Functional status Patient is Pro gressing Toward Baseline [facility] Work Phone: 03-22-2022 Functional status Patient is Pro gressing Toward Baseline [facility] Work Phone: 03-18-2022 Functional status Patient at Baseline [facility] Work Phone: 03-05-2022 Functional status Disability Sta tus Patient at Baseline [facility] Work Phone: Mental Status Date Assessment Result Facility 04-03-2022 Cognitive function Cognitive Sta tus Patient at Baseline [facility] Work Phone: 03-22-2022 Cognitive function Cognitive Sta tus Patient at Baseline [facility] Work Phone: 03-18-2022 Cognitive function Cognitive Sta tus Patient at Baseline [facility] Work Phone: Clinical Notes 09-25-2021 to 03-13-2023 Note Date & Type Note Facility 03-13-2023 Evaluation note Encounter Date Diagnosis Assessment Notes Mar, Spondyloli sthesis, lumbar region (ICD-10 - M43.16) The patient still has pain in her legs but is probably from the lymphedema. Her true radicular pain is much better she is happy with that her back feels much better. Her x-rays show stable hardware with good bone formation and beginning of good fusion. I will see the patient again in 6 months for follow-up overall from a surgical point of view she is done very well. [employer] Other [id number] NoteHypertension is controlled currently 136/67 Renal function stable from labs 05/2022, K+ normal Continue candesartan, hydralazine, labetolol, [facility] NoteContinue torsemide F/U with PCP Continue [facility] NoteContinue lipitor Script completed for lipid level- last lipids noted in chart is from 2020 Reviewed labs 05/2022 and liver function was [facility]-2023 NoteCoronary artery disease is stable Continue GDMT- ASA, lipitor, labetolol continue risk factor modifications- heart healthy diet, regular exercise as tolerated and continue all medications. 136/67- 57[facility]-2023 NoteUTP CARDIOLOGY PROGRESS NOTE HPI: Laura Lawson is a 72 y.o. female here for Follow-up (6 month ) HPI Routine 6 month f/U for CAD s/p RENO to RCA 2002, HTN, HPL, edema/venous insufficiency, obesity, DM She ambulates with rolling walker. Denied chest pain, shortness of breath, orthopnea, or palpitations Denied lightheadedness/dizziness or syncope. Overall states she is doing quite well Review of Systems Constitutional: Negative. Respiratory: Negative. Cardiovascular: Negative. Neurological: Negative. All other systems reviewed and are negative. Visit Vitals BP 147/74 (BP Location: Right arm, Patient Position: Sitting) Wt 114 kg (252 lb) BMI 42.59 kg/m??? Smoking Status Never BSA 2.28 m??? No Known Allergies Medications: Current Outpatient Medications on File Prior to Visit Medication Sig Dispense Refill allopurinol (Zyloprim) 300 mg tablet aspirin 81 mg EC tablet in the morning. atorvastatin (Lipitor) 40 mg tablet Take 40 mg by mouth in the morning. baclofen (Lioresal) 10 mg tablet candesartan (Atacand) 32 mg tablet Take 32 mg by mouth in the morning. hydrALAZINE (Apresoline) 100 mg tablet every 12 (twelve) hours. insulin lispro (HumaLOG) 100 unit/mL injection Humalog U-100 Insulin 100 unit/mL subcutaneous solution labetalol (Normodyne) 300 mg tablet Take 300 mg by mouth in the morning and at bedtime. meloxicam (Mobic) 15 mg tablet meloxicam 15 mg tablet omeprazole (PriLOSEC) [address] capsule potassium chloride CR (Klor-Con M20) 20 mEq ER tablet every 12 (twelve) hours. torsemide (Demadex) 20 mg tablet Take 20 mg by mouth in the morning and at bedtime. Toujeo Max U-300 SoloStar 300 unit/mL (3 mL) injection Trulicity 1.5 mg/0.5 mL pen injector nitroglycerin (Nitrostat) 0.3 mg SL tablet nitroglycerin 0.3 mg sublingual tablet No current facility-administered medications on file prior to visit. Physical Exam: Constitutional: Appearance: Normal appearance. Without apparent distress, obese, chronically ill HENT: Head: Normocephalic and atraumatic. Nose: Nose normal. Mouth/Throat: Mouth: Mucous membranes are moist. Eyes: Extraocular Movements: Extraocular movements intact. Conjunctiva/sclera: Conjunctivae normal. Neck: Vascular: No JVD. Cardiovascular: Rate and Rhythm: Normal rate and regular rhythm. Pulses: Dorsalis pedis pulses are 3 on the right side and 3on the left side. Posterior tibial pulses are 3 on the right side and 3 on the left side. Heart sounds: Normal heart sounds, S1 normal and S2 normal. Pulmonary: Effort: Pulmonary effort is normal. Breath sounds: Normal breath sounds. Abdominal: General: Bowel sounds are normal. Palpations: Abdomen is soft. Musculoskeletal: General: Normal range of motion. Ambulatory via walker Cervical back: Normal range of motion. Right lower le+ pitting edema. Left lower le+ pitting edema. Skin: General: Skin is warm and dry. Capillary Refill: Capillary refill takes less than 2 seconds. Neurological: General: No focal deficit present. Mental Status: She is alert and oriented to person, place, and time. Psychiatric: Mood and Affect: Mood normal. Behavior: Behavior normal. Thought Content: Thought content normal. Judgment: Judgment normal. Labs: 05/2022 CBC normal Renal function slightly elevated but stable Liver function normal K+ normal Last lab values have been reviewed CV Testin08/18/2018 Stress test 09/2020 Echo 02/02/2003 Cardiac cath with PCI No echocardiogram results found for the past 12 months Assessment/Plan: Coronary atherosclerosis Coronary artery disease is stable Continue GDMT- ASA, lipitor, labetolol continue risk factor modifications- heart healthy diet, regular exercise as tolerated and continue all medications. 136/67- 57 Pure hypercholesterolemia Continue lipitor Script completed for lipid level- last lipids noted in chart is from 2020 Reviewed labs 05/2022 and liver function was normal Peripheral venous insufficiency Continue torsemide F/U with PCP Continue to wear compression to BLE Benign essential hypertension Hypertension is controlled currently 136/67 Renal function stable from labs 05/2022, K+ normal Continue candesartan, hydralazine, labetolol, torsemide RTC [facility] Evaluation note* Encounter Date Diagnosis Assessment Notes Treatment Notes Treatment Clinical Notes Sep, Spondylolisthesis , lumbar region (ICD-10 - M43.16) I independently reviewed the plain x-ray of the lumbar spine compared to previous it appears to be stable with intact hardware no fractured screws good alignment. Clinically the patient has good relief of her radicular symptoms whenever she blows her nose sneezes or coughs she gets pain in the left groin and that grabbing or pinching in the top of her left thigh I am not certain what this is it could theoretically be a hernia she will be seeing her family doctor about this. She would like therapy for balance leg strengthening I ordered this I will see her back in 6 months with another x-ray. [employer] Other 03-13-2023 NoteUT Cardiology - [facility] Subjective Laura Lawson is a 71 y.o. year old female patient being seen for 6 mo follow up Coronary Artery Disease and Hypertension Had echo, labs, and RLE venous doppler in May 2022. She says PCP switched her from bumex to torsemide. She is no longer taking metolazone a few times a week. She said he also stopped nifedipine for my legs . Says her LE edema has been better and her BP has been good. Had her back surgery in Mar 2022 and everything went well. BP very elevated today in the office. She states she hasn't taken her medicines yet today, and missed her AM doses yesterday. Patient Active Problem List Diagnosis Allergic rhinitis Angiomyolipoma of kidney Benign essential hypertension Cerebrovascular disease Chronic foot ulcer (CMS/HCC) Coronary atherosclerosis Decreased estrogen level Diabetic retinopathy associated with type 2 diabetes mellitus (CMS/HCC) Diaphragmatic hernia Difficulty walking Dyspnea on exertion Generalized osteoarthritis Gout History of arthritis History of hysterectomy Hyperglycemia due to type 2 diabetes mellitus (CMS/HCC) senior living current use of insulin (CMS/HCC) Low back pain Morbid obesity (CMS/HCC) Neoplasm of uncertain behavior of kidney Obstructive sleep apnea syndrome Osteoarthritis of knee Osteoporosis Peripheral venous insufficiency Polyneuropathy due to type 2 diabetes mellitus (CMS/HCC) Preoperative evaluation to rule out surgical contraindication Pulmonary function studies abnormal Pure hypercholesterolemia Renal mass Skin sensation disturbance Type 2 diabetes mellitus without complication (CMS/HCC) Umbilical hernia Uric acid nephrolithiasis Family History Problem Relation Name Age of Onset JABARI disease Mother Heart attack Father Social History Tobacco Use Smoking status: Never Smokeless tobacco: Never Substance Use Topics Alcohol use: Not Currently HPI Ms. Lawson presents to clinic as a 6 month f/u. PMHx: CAD, HTN, LE edema, KJ (wears bipap), DM type II, obesity CAD history: In 2013 she underwent cardiac catheterization that showed severe three-vessel coronary disease. She was deemed not a good candidate for bypass surgery and underwent multivessel intervention. The procedure was performed using bare-metal stents due to upcoming surgery at that time. Since then she has not required any repeat cardiac procedures. A stress test in 2018 showed no ischemia and an echocardiogram in 2020 showed preserved ventricular and valvular functions. Today she reports that she has been doing well. She has no angina and no palpitations. She uses a walker to ambulate. She does not exert herself much. She does take diuretic therapy for lower extremity edema. Prior lower extremity ultrasound did not show DVT. Bumetanide was changed to torsemide by her PCP. Review of Systems Cardiovascular: Positive for leg swelling. All other systems reviewed and are negative. Objective Visit Vitals BP (!) 198/82 (BP Location: Left arm, Patient Position: Sitting) Pulse 63 Ht 1.638 m (5' 4.5 ) Wt 112 kg (248 lb) SpO2 97% BMI 41.91 kg/m??? Smoking Status Never BSA 2.26 m??? Physical Exam Constitutional: Appearance: She is well-developed. She is obese. She is not ill-appearing. HENT: Head: Normocephalic and atraumatic. Nose: Nose normal. Eyes: General: No scleral icterus. Pupils: Pupils are equal, round, and reactive to light. Neck: Thyroid: No thyromegaly. Vascular: No JVD. Cardiovascular: Rate and Rhythm: Normal rate and regular rhythm. Pulses: Radial pulses are 2+ on the right side and 2+ on the left side. Heart sounds: Normal heart sounds. No murmur heard. No friction rub. No gallop. Pulmonary: Effort: Pulmonary effort is normal. No respiratory distress. Breath sounds: Normal breath sounds. No wheezing or rales. Chest: Chest wall: No tenderness. Abdominal: General: Bowel sounds are normal. There is no distension. Palpations: Abdomen is soft. Tenderness: There is no abdominal tenderness. Musculoskeletal: General: No swelling. Cervical back: Neck supple. Comments: Uses a walker to assist with ambulation. Skin: General: Skin is warm and dry. Neurological: General: No focal deficit present. Mental Status: She is alert and oriented to person, place, and time. Psychiatric: Mood and Affect: Mood normal. Behavior: Behavior is cooperative. Judgment: Judgment normal. Allergies No Known Allergies Medications Current Outpatient Medications: allopurinol (Zyloprim) 300 mg tablet, , Disp: , Rfl: aspirin 81 mg EC tablet, in the morning., Disp: , Rfl: atorvastatin (Lipitor) 40 mg tablet, Take 40 mg by mouth in the morning., Disp: , Rfl: baclofen (Lioresal) 10 mg tablet, , Disp: , Rfl: candesartan (Atacand) 32 mg tablet, Take 32 mg by mouth in the morning., Disp: , Rfl: hydrALAZINE (Apresoline) 100 mg tablet, every 1 (more content not included)... [facility]01-05-[facility] Evaluation note* Encounter Date Diagnosis Assessment Notes Treatment Notes Treatment Clinical Notes Jun, Lumbar radiculopathy (ICD-10 - M54.16) I independently reviewed the plain x-ray of the lumbar spine and compared to previous showing good hardware placement. She has no abnormalities, she physically is doing well except for some occasional pain in her left thigh which she does not need to take medication for. She is having lymphedema or venous stasis problems that are another issue preventing her from doing normal physical therapy. She is happy with her recovery. At this point I will see her in 3 months with a new x-ray. Jun, Spondylolisthesis, lumbar region (ICD-10 - M43.16) [employer] Other 11-10-2022 Evaluation note* Encounter Date Diagnosis Assessment Notes Treatment Notes Treatment Clinical Notes Apr, Lumbar radiculopathy (ICD-10 - M54.16) I independently reviewed the x-ray showing reasonable cage placement and intact hardware from a two-level lumbar fusion. Patient clinically states her legs are feeling better she still feels weak. Overall she has done very well but only doing home therapy. I recommend an outpatient physical therapy program and have given a referral. I will see her again in 2 months for reevaluation with an xray. At this point she is taking no narcotics. Apr, Spondylolisthesis, lumbar region (ICD-10 - M43.16) [employer] Other 10-14-2022 Progress note Author Abner Roa [facility] March 22, 2022 6:34am Note Date/Time March 22, 2022 6 :34am [facility] [address] [place] [address] Neurosurgery Progress Note Signed Patient: Laura Lawson MR#: [id number] : 1950 Acct:[id number] Age/Sex: 71 / F Adm Date: 2 Loc: Room: [address] [place] [address] Type: ADM IN Attending Dr: Abner Roa MD Copies to: ~ Date of Service: 03/22/2022 Subjective Subjective HPI: Patient states her right leg is a little better than yesterday more stiff or tight. No other complaints Exam Physical Exam Vital Signs: Temp Pulse Resp BP Pulse Ox O2 Del Method O2 Flow Rate 97.6 F 80 16 189/73 H 97 Room Air 2 03/22/22 04:10 03/22/22 04:10 03/22/22 04:10 03/22/22 04:10 03/22/22 04:10 03/22/22 04:15 03/20/22 17:30 Narrative: Awake and alert cooperative Lower extremity strength appears to be at baseline Face symmetrical Objective Lab Results Most Recent Labs: 03/21/22 16:04: POC Glucose 308, POC Glucose Comment Glu2: cleaned meter 03/21/22 11:26: POC Glucose 251, POC Glucose Comment Glu2: cleaned meter 03/21/22 07:36: POC Glucose 193, POC Glucose Comment Glu2: cleaned meter Assessment/Plan Assessment/Plan (1) Lumbar stenosis with neurogenic claudication: Plan: The patient was not sent to rehab yesterday because of bed availability issues. She will be discharged today. Patient is aware of this remember the event. Sheseems more comfortable than yesterday and was sleeping soundly when I woke her up to examine her and talk to her. She appears much more comfortable Code(s): M48.062 - Spinal stenosis, lumbar region with neurogenic claudication Status: Acute Documented By: bAner Roa MD 03/22/22632 Signed By: <Electronically signed by MD Abner Roa> 03/22/22633 [facility] Work Phone: 1(558) 624-636410-13-2022 Progress note Author Abner Roa [facility] March 21, 2022 7:43am Note Date/Time March 21, 2022 7 :43am [facility] [address] [place] [address] Neurosurgery Progress Note Signed Patient: Laura Lawson MR#: [id number] : 1950 Acct:[id number] Age/Sex: 71 / F Adm Date: 2 Loc: 4 Room: [address] [place] [address] Type: ADM IN Attending Dr: Abner Roa MD Copies to: ~ Date of Service: 03/21/2022 Subjective Subjective HPI: Patient has no memory of telling us that both legs hurt yesterday. Today she says her right leg only in one area is uncomfortable and not as bad as yesterday Exam Physical Exam Vital Signs: Temp Pulse Resp BP Pulse Ox O2 Del Method O2 Flow Rate 98.4 F 68 16 149/58 H 95 CPAP 2 03/21/22 04:00 03/21/22 04:00 03/21/22 04:00 03/21/22 04:00 03/21/22 04:00 03/21/22 04:00 03/20/22 17:30 Narrative: Lower extremity at baseline Tc sign negative on the right Dressing dry Alert and cooperative, pleasant Objective Lab Results Most Recent Labs: 03/20/22 20:44: POC Glucose 215, POC Glucose Comment Glu2: cleaned meter 03/20/22 17:43: COVID-19 Clin Com Negative 03/20/22 16:21: POC Glucose 239, POC Glucose Comment Glu2: cleaned meter 03/20/22 12:01: POC Glucose 376, POC Glucose Comment Glu2: cleaned meter 03/20/22 08:06: POC Glucose 284, POC Glucose Comment Glu2: cleaned meter Assessment/Plan Assessment/Plan (1) Lumbar stenosis with neurogenic claudication: Plan: Postoperative day #3 I think the patient should be able to dissipate in physicaltherapy I will discharge her to rehab. She should continue the prednisone taper. Code(s): M48.062 - Spinal stenosis, lumbar region with neurogenic claudication Status: Acute Documented By: Abner Roa MD 03/21/22 0742 Signed By: <Electronically signed by MD Abner Roa> 03/21/2243 [facility] Work Phone: 1(955) 116-319110-12-2022 Progress note Author Abner Roa [facility] March 20, 2022 10:22am Note Date/Time March 20, 2022 1 0:22am [facility] [address] [place] [address] Neurosurgery Progress Note Signed Patient: Laura Lawson MR#: [id number] : 1950 Acct:[id number] Age/Sex: 71 / F Adm Date: 2 Loc: Room: 6F4438-9 Type: ADM IN Attending Dr: Abner Roa MD Copies to: ~ Date of Service: 03/20/2022 Subjective Subjective HPI: Back is sore Exam Physical Exam Vital Signs: Temp Pulse Resp BP Pulse Ox O2 Del Method O2 Flow Rate 97.7 F 89 16 153/81 H 96 CPAP 2 03/20/22 08:00 03/20/22 08:24 03/20/22 08:00 03/20/22 08:24 03/20/22 08:00 03/20/22 08:00 03/20/22 04:15 Narrative: Lower extremity movement appears to be at baseline Wound had some drainage last night and dressing was changed Patient alert and oriented Objective Lab Results Most Recent Labs: 03/20/22 08:06: POC Glucose 284, POC Glucose Comment Glu2: cleaned meter 03/19/22 21:38: POC Glucose 357 10/11/22 16:26: POC Glucose 287 03/19/22 14:00: POC Glucose 245, POC Glucose Comment Will notify dr/pattern duplicator/Plan Assessment/Plan (1) Lumbar stenosis with neurogenic claudication: Plan: Patient is complaining of discomfort in the lateral thighs bilaterally this may be neurogenic. I will give her a prednisone taper. She got up today walked a couple steps with a walker I think she will be functional in rehab. I would plan to discharge her tomorrow if okay. Patient is agreeable Code(s): M48.062 - Spinal stenosis, lumbar region with neurogenic claudication Status: Acute Documented By: Abner Roa MD 03/20/22 102 Signed By: <Electronically signed by MD Abner Roa> 03/20/221021 [facility] Work Phone: 1(822) 917-206510-11-2022 Progress note Author Abner Roa [facility] March 19, 2022 7:33am Note Date/Time March 19, 2022 7 :33am [facility] [address] [place] [address] Neurosurgery Progress Note Signed Patient: Laura Lawson MR#: [id number] : 1950 Acct:[id number] Age/Sex: 71 / F Adm Date: 2 Loc: Room: 1T5675-1 Type: ADM IN Attending Dr: Abner Roa MD Copies to: ~ Date of Service: 03/19/2022 Subjective Subjective HPI: Back is sore Exam Physical Exam Vital Signs: Temp Pulse Resp BP Pulse Ox O2 Del Method O2 Flow Rate 98.6 F 79 18 153/71 H 94 L BiPAP 4 03/19/22 04:20 03/19/22 04:20 03/19/22 04:20 03/19/22 04:20 03/19/22 04:20 03/19/22 04:20 03/19/22 04:10 Narrative: Lower extremity movement appears to be at baseline Wound had some drainage last night and dressing was changed Patient alert and oriented Objective Lab Results Most Recent Labs: 03/18/22 20:59: POC Glucose 253 03/18/22 16:29: POC Glucose 256 03/18/22 10:45: POC Glucose 179 03/18/22 06:26: Blood Type Recheck A Negative Assessment/Plan Assessment/Plan (1) Lumbar stenosis with neurogenic claudication: Code(s): M48.062 - Spinal stenosis, lumbar region with neurogenic claudication Status: Acute Plan Plan is to increase activity today with physical therapy. 45 BMI may make it difficult with early movement Documented By: Abner Roa MD 03/19/22 0731 Signed By: <Electronically signed by MD Abner Roa> 03/19/22 0733 [facility] Work Phone: [phone]) 526-662408-09-2022 Evaluation note* Encounter Date Diagnosis Assessment Notes Treatment Notes Treatment Clinical Notes Jan, Spondylolisthesis, lumbar region (ICD-10 - M43.16) I have independently reviewed the MRI of the lumbar spine, 6 view lumbar spine x-ray with flexion and extension view that shows a translation of L3-4 malalignment of the spine at L2-3 L3-4 and L4-5. On MRI there is significant stenosis at L3-4 and L4-5. There is degenerative disc changes at L2-3. Her DEXA scan was also independently reviewed showing adequate bone quality. This patient is incapacitated by pain in the left leg which is a combination of L3 L3-4 possibly L4-5 pain. She has failed reasonable conservative care. At this point the patient is in need of an anterior lumbar interbody fusion L2-3 L3-4 L4-5 with posterior augmentation of hardware L2-5 bilaterally with bilateral lateral fusion and a decompression of L3-4 on the left. I reviewed all imaging and test results face to face and discussed treatment options in detail and had a long discussion lasting over 50 minutes with the patient and her significant other regarding surgical indication operation postop course risk and benefits of surgery limitations and complications that include nerve damage infection incomplete relief of symptoms chronic pain theoretical paralysis and spinal fluid leak. I believe all understand agree and would like to proceed with surgical intervention. She also has cardiac disease with 4 stents and will need cardiac clearance. A lumbar sagital brace will be dispensed prior to surgery to reduce pain by rstricting mobility of the trunk and to otherwise support weak spinal muscles and/or a deformed spine. Jan, Sacroiliitis (ICD-10 - M46.1) Jan, Lumbar stenosis with neurogenic claudication (ICD-10 - M48.062) [employer] Other 07-01-2022 Evaluation note* Encounter Date Diagnosis Assessment Notes Treatment Notes Treatment Clinical Notes Dec, Lumbar radiculopathy (ICD-10 - M54.16) 71 year old female here for follow up and medication refill for chronic pain. She voices continuted complaints of low back pain with radiation down the outer aspect of the left lower extremity to the foot. She feels pain can negatively impact her daily activities and sleeping pattern. Anatomy of spine as well as different treatment options were discussed in detail with patient in regards to patients condition. I will prescribe Tramadol to be taken once at night to control her pain. Opioid contract signed today in the office. She can stop Gabapentin. Dec, Sacroiliitis (ICD-10 - M46.1) Sacral pain is minimal. Dec, Chronic pain (ICD-10 - G89.29) Continue with current treatment plan [employer] Other 06-30-2022 Evaluation note* Encounter Date Diagnosis Assessment Notes Treatment Notes Treatment Clinical Notes Nov, Spondylolisthesis, lumbar region (ICD-10 - M43.16) Nov, Lumbar back pain with radiculopathy affecting left lower extremity (ICD-10 - M54.16) I have independently reviewed the MRI of the lumbar spine and the report. This patient has a spondylolisthesis at L4-5 with stenosis and foraminal narrowing probably causing the majority of the symptoms as well as stenosis at L3-4. She is 71 years old. She has not had a recent DEXA scan but in the past has been told she has some osteoporosis. At this point we need further evaluation. In addition the patient has clinically cervical myelopathy with a positive Clemencia sign and poor balance. She needs an MRI of the cervical spine with no dye. I would like to see the patient back with this MRI, a new DEXA scan, 6 view lumbar spine x-ray. The patient fully understands and agrees with our plan of action. She has numerous complications to include class III obesity with comorbidity of diabetes as well as coronary artery disease with multiple stents Nov, Cervical myelopathy (ICD-10 - G95.9) Nov, Sacroiliitis (ICD-10 - M46.1) Nov, Asymptomatic age-related postmenopausal state (ICD-10 - Z78.0) [employer] Other 06-02-2022 Evaluation note* Encounter Date Diagnosis Assessment Notes Treatment Notes Treatment Clinical Notes Nov, Lumbar radiculopathy (ICD-10 - M54.16) 71 year old female here for follow up status post left L3 and L4 transforaminal epidural steroid injection under fluoroscopic guidance. Patient reports minimal pain relief following procedure. She voices complaints of left sided low back pain with radiation down the left lower extremity to the knee and numbness and tingling to the inner apect of the calf. I do not recommend any further injections at this time due to her recent amount of steroids. I recommend she see neurosurgery. I will prescribe Gabapentin 100 mg three times daily. She can continue her activities as tolerated. She can follow up in 3 months. Nov, Sacroiliitis (ICD-10 - M46.1) Sacral pain is minimal. Nov, Chronic pain (ICD-10 - G89.29) Continue with current treatment plan [employer] Other 05-18-2022 Evaluation note* Encounter Date Diagnosis Assessment Notes Treatment Notes Treatment Clinical Notes October, Lumbar radiculopathy (ICD-10 - M54.16) 70 year old female here for follow up status post left sacroiliac joint injection under fluoroscopic guidance. Patient reports 70-80% pain relief and increased function in standing, walking and daily function following procedure. She voices complaints of left sided buttock back pain with radiation to the anterior aspect of the left thigh to the posterior aspect of calf. Anatomy of spine discussed in detail with patient in regards to patients condition. Patient is a candidate for a L3,4 transforaminal epidural steroid injection on the left side under fluoroscopic guidance. Risks and benefits of procedure explained to patient; patient verbalizes understanding. October, Sacroiliitis (ICD-10 - M46.1) Patient reports 70-80% pain relief and increased function following procedure October, Chronic pain (ICD-10 - G89.29) Continue with current treatment plan [employer] Other 05-09-2022 Evaluation note* Encounter Date Diagnosis Assessment Notes Treatment Notes Treatment Clinical Notes October, Sacroiliitis (ICD-10 - M46.1) 70 y/o female here for follow up status post left L2, 3 transforaminal epidural steroid injection under fluoroscopic guidance. Patient reports minimal relief of pain following the procedure. She voices continued complaints of radiating pain down the outer aspect of the left lower extremity to mid thigh. Clinically her pain presents as sacroiliitis. I recommend proceeding with an left SI joint injection. Risks and benefits of procedure explained to patient; patient verbalizes understanding. October, Chronic pain (ICD-10 - G89.29) Follow up after procedure. October, Lumbar radiculopathy (ICD-10 - M54.16) Stable. October, Primary osteoarthritis of left hip (ICD-10 - M16.12) Consider left hip and greater trochanteric bursa injection in the future. [employer] Other 04-19-2022 Evaluation note* Encounter Date Diagnosis Assessment Notes Treatment Notes Treatment Clinical Notes Sep, Lumbar radiculopathy (ICD-10 - M54.16) 70 year old female presents with complaints of left sided low back/buttock pain with radiation down the outer aspect of the left lower extremity to the mid thigh. She states pain started about 8 months ago with no known inciting trauma. She notes recent physical therapy which provided no relief of her symptoms. She cannot take NSAIDs due to anticoagulants she is currently taking. She feels pain can negatively impact her ADLs and sleeping pattern. Prior to examining the patient, I reviewed progress notes from her referring physician Dr Arriaza. I also independently reviewed previous MRI of the lumbar spine which shows multi level degenerative disc disease resulting in significant central and foraminal stenosis at L3-4 and L4-5 levels. Anatomy of spine discussed in detail with patient in regard to patients condition. Patient is a candidate for a L2,3 transforaminal epidural steroid injection on the left side under fluoroscopic guidance. Risks and benefits of procedure explained to patient; patient verbalizes understanding. Sep, Sacroiliitis (ICD-10 - M46.1) In the future if the pain persists, we can consider proceeding with a bilateral sacroiliac joint injection under fluoroscopic guidance. Sep, Chronic pain (ICD-10 - G89.29) Proceed with current treatment plan. Patient is aware she must hold her Plavis and Aspirin for 7 days prior to procedure Sep, Other Medical deci renard making shows a new problem to me with further workup planned or suggested with the potential for extensive treatment options that were considered with the most applicable given this patient's situation as noted above. Treatment options considered include a combination of physical therapy approaches, pharmacologic management, and interventional procedures. Those most applicable to the patient were discussed at this time. Risk of complications and/or morbidity and mortality is high given that acute and chronic pain poses a threat to life and bodily function if undertreated, poorly treated or with failure to maintain adequate treatment and timely followup. Given the serious and fluctuating nature of pain with extensive consideration for whenever pain changes, there always remains the possibility of prolonged functional impairment requiring constant patient reassessment and high-level medical decision making. The amount and complexity of data reviewed is high given that patient labs, radiology reports, and other test were obtained, reviewed and summarized as applicable from the physician portal and/or outside medical records. Pertinent positive and negative findings were considered in medical decision-making. [employer] Other Evaluation noteNo InformationNortExcela [facility] [employer] Other Evaluation noteNo assessment information available [facility] Work Phone: Evaluation note* Diagnosis Onset Date Resolution Status Lumbar stenosis with neurogenic claudication acute [facility] Work Phone: Evaluation note* Diagnosis Onset Date Resolution Status Lumbar stenosis with neurogenic claudication acute CAD (coronary artery disease) acute Diabetes mellitus, type 2 ac ramon Hyperlipidemia acute Hypertension acute Impaired mobility and endurance acute Lumbar stenosis with neurogenic claudication acute Morbid obesity with body mas s index (BMI) of 45.0 to 49.9 in adult acute Myocardial infarction acute Sleep apnea with use of noct urnal bilevel positive airway pressure (BPAP) acute [facility] Work Phone: History general Narrative - Reported* Type Description Date Medical History diabetes Medical History obstructive sleep apnea Surgical History total hysterectomy Surgical History hernia repair Surgical History neck mass removal [employer] Other History general Narrative - Reported* Type Description Date Medical History diabetes Medical History obstructive sleep apnea Surgical History total hysterectomy Surgical History hernia repair Surgical History neck mass removal Hospitalization History See Above [employer] Other Hospital Discharge instructions Additional Instructions DISCHARGE INSTRUCTIONS FOR POSTERIOR LUMBAR INTERBODY FUSION OR POSTERIOR LUMBAR FUSION DIET-regular home diet ACTIVITY - Wear brace when sitting and standing and out of bed - Activity as tolerated; No lifting over 15 pounds - Stairs as tolerated - Walk as much as possible - No driving until seen by physician; may ride in car -May shower today. When taking first shower leave dressing on complete shower remove dressing dry the wound and apply small amount of antibiotic ointment to the wound 1 time daily thereafter - Keep incision clean and dry OTHER - Call your provider's office for any fever, chills, nausea, vomiting, headache, numbness, or tingling. - Call your providers office and make an appointment to see your provider in 2 weeks. Use ice as needed for back spasm 20 [facility]: Reason for visit NarrativeNeurosurgery Referral Update [facility] [employer] Other Summary Purpose Family History No Family History Records Found Relationship Condition Age at Onset Recorded Date/T mirella father Diabetes mellitus Unknown Hypertension Unknown Not Specified Malignant neoplasm of skin Unknown Advance Directives No Advanced Directives Records Found Advance Directive Response Recorded Date/ Time Advance Directives No December 11 2 10:57am Advance Directive Response Recorded Date/ Time Advance Directives No December 11 2 9:57am Reason for Referral Reason leg strengthening, g ait training, balance Diagnosis 1 Spondylolisthesis, l umbar region (M43.16) Referral Organization [facility] Referring Provider First Name Abner Referring Provider Last Name Janina Referring Provider Specialty Neurologica l Surgery Referred Organization [facility] Referred Address ,[place], [place],[address] Referred Provider Specialty Physical The rapist Referral Priority Routine Reason Evaluate and Treat O utPatient PT in [place] for Gait Training and Leg Strengthening Diagnosis 1 Lumbar radiculopathy (M54.16) Referral Organization [facility] Referring Provider First Name Abner Referring Provider Last Name Janina Referring Provider Specialty Neurologica l Surgery Referred Organization [facility] Central Sched uling Referred Address [address], [place],[address] Referred Provider Specialty Physical The rapist Referral Priority Routine Reason eval and treat Diagnosis 1 Lumbar radiculopathy (M54.16) Referral Organization [facility] Pain Managemen t Referring Provider First Name Devang Referring Provider Last Name Keri Referring Provider Specialty Pain Medici ne Referred Organization [facility] Last anthony Co Referred Provider Vlad Georges Referred Address [address] [facility], [place],[id number] Referred Provider Specialty Neurosurgery Referral Priority Routine Chief Complaint and Reason for Visit Chief Complaint m43.16 g95.9 z78.0 m43.16 g95.9 z78.0 Chief Complaint m43.16 g95.9 z78.0 m43.16 g95.9 z78.0 Spondylolisthesis Chief Complaint m43.16 g95.9 z78.0 m43.16 g95.9 z78.0 Spondylolisthesis Spondylolisthesis Chief Complaint m43.16 g95.9 z78.0 m43.16 g95.9 z78.0 Spondylolisthesis Spondylolisthesis Spondylolisthesis Reason for Visit Lumbar stenosis with neurogenic claudication Chief Complaint Spondylolisthesis Spondylolisthesis Spondylolisthesis Lumbar Stenosis s/p XLIF See order Reason for Visit Lumbar stenosis with neurogenic claudication CAD (coronary artery disease) Diabetes mellitus, type 2 Hyperlipidemia Hypertension Impaired mobility and endurance Lumbar stenosis with neurogenic claudication Morbid obesity with body mass index (BMI) of 45.0 to 49.9 in adult Myocardial infarction Sleep apnea with use of nocturnal bilevel positive airway pressure (BPAP) Chief Complaint Spondylolisthesis Lumbar Stenosis s/p XLIF See order gait training m43.16 Reason for Visit Lumbar stenosis with neurogenic claudication CAD (coronary artery disease) Diabetes mellitus, type 2 Hyperlipidemia Hypertension Impaired mobility and endurance Lumbar stenosis with neurogenic claudication Morbid obesity with body mass index (BMI) of 45.0 to 49.9 in adult Myocardial infarction Sleep apnea with use of nocturnal bilevel positive airway pressure (BPAP) Chief Complaint See order gait training m43.16 Chief Complaint m54.16 Additional Source Comments INFORMATION SOURCE (unrecogn ized section and content) DATE CREATED AUTHOR 08/19/2018 [facility] DATE CREATED AUTHOR AUTHOR'S ORGANIZ ATION 03/17/2020 [facility] DATE CREATED AUTHOR AUTHOR'S ORGANIZ ATION 11/19/2022 [facility] DATE CREATED AUTHOR AUTHOR'S ORGANIZ ATION 02/28/2023 [facility] DATE CREATED AUTHOR AUTHOR'S ORGANIZ ATION 04/13/2023 [facility] DATE CREATED AUTHOR AUTHOR'S ORGANIZ ATION 06/27/2023 [facility] EPIC REASON FOR VISIT (unrecogniz ed section and content) REF BY DR ARRIAZA FOR [place] INAL STENOSIS OF LUMBAR SPINELEFT L2,3 TRANSFORAMINAL EPIDURAL STEROID INJ/ELFOLLOW UP AFTER LEFT LTRfollow up after SI joint injectionFOLLOW UP AFTER LEFT LTRRef by Dr. Saavedra for Lumbar Radiculopathy; [facility]/S, xray, and DEXA resultsxlif L2-3, L3-4, L4-54 wk po/xlif L2-3, L3-4, L4-5/ 03-18-2022/xray3 mo po XLIF w/xray6 mo po XLIF w/xray6 month po xlif/xray Care Teams (unrecognized sec tion and content) Team Status: Inactive Member Role Status Michael Roa MD Attending Provider Active Vlad Cesar II MD Primary Care Provider Active Team Status: Active Member Role Status Michael Cesar II MD Primary Care Provider Active Team Status: Inactive Member Role Status Michael Cesar II MD Primary Care Provider Active Abner Roa MD Attending Provider Active Team Status: Inactive Member Role Status Michael Cesar II MD Primary Care Provider Active Abner Roa MD Admit Provider, Attending Provider A ctive Team Status: Inactive Member Role Status Michael Cesar II MD Primary Care Provider Active Chidi Bowen MD Admit Provider, Attending Provider A ctive Louann Mancilla RN Other Provider Active Janice Linares , KENDALL Other Provider Active Jessica Benson , KENDALL Other Provider Active Arcelia oBrges , KENDALL Other Provider Active Sherry Luong RN Other Provider Active Nanci Jj , RN Other Provider Active Meliton Schwartz MD Other Provider Active Fred Nash MD Other Provider Active Mirtha Serrano , FINANCIAL AID COUNSELOR Other Provider Active Yesi Dickens , DO Other Provider Active Alfredo Lacy MD Other Provider Active Graeme Davey , DO Other Provider Active James Child MD Other Provider Active Chel Juarez MD Other Provider Active Tuyet Burks , ANP-BC Other Provider Active Justine Mercedes MD Other Provider Active Regan Hernandez MD Other Provider Active Adis Cote MD Other Provider Active Michael Vang MD Other Provider Active Anton Lane , DO Other Provider Active Awais Bunn MD Other Provider Active Sonia Mckeon MD Other Provider Active Boubacar Weston MD Other Provider Active Latonia Ely , NEGATIVE TURNER-C Other Provider Active Roman Rosales MD Other Provider Active Riccardo Jenkins MD Other Provider Active Edie Granados MD Other Provider Active Eddy Luu MD Other Provider Active Laine Swan , DO Other Provider Active Clemente Trejo MD Other Provider Active Edwardo Ramirez , DO Other Provider Active Ziggy Vernon , DO Other Provider Active Tressa Degroot , FINANCIAL AID COUNSELOR Other Provider Active Noam Albarado , DO Other Provider Active Jacobo Montes MD Other Provider Active Fariha Flowers RN Other Provider Active Team Status: Active Member Role Status Dates Vlad Cesar II MD Primary Care Provider Active Abner Roa MD Attending Provider Active Goals (unrecognized section and content) Goals may be documented in a n alternate section FOR RECORDS PERTAINING TO PATIENTS WHO ARE OR HAVE BEEN ENROLLED IN A CHEMICAL DEPENDENCY/SUBSTANCEABUSE PROGRAM, SOME INFORMATION MAY BE OMITTED. This clinical summary was aggregated from multiple sources. Caution should be exercised in using it in the provision of clinical care. This summary normalizes information from multiple sources, and as a consequence, information in this document may materially change the coding, format and clinical context of patient data. In addition, data may be omitted in some cases. CLINICAL DECISIONS SHOULD BE BASED ON THE PRIMARY CLINICAL RECORDS. [facility] [employer] [facility]. provides no warranty or guarantee of the accuracy or completeness of information in this document.
[2023-07-02 12:28] LABS: Adenovirus NOT DETECTED (NOT DETECTE); Bordetella parapertussis NOT DETECTED (NOT DETECTE); Coronavirus 229E NOT DETECTED (NOT DETECTE); Coronavirus HKU1 NOT DETECTED (NOT DETECTE); Coronavirus NL63 NOT DETECTED (NOT DETECTE); Coronavirus OC43 NOT DETECTED (NOT DETECTE); Human Metapneumovirus NOT DETECTED (NOT DETECTE); Human Rhinovirus/Enterovirus NOT DETECTED (NOT DETECTE); Influenza A NOT DETECTED (NOT DETECTE); Influenza B NOT DETECTED (NOT DETECTE); Mycoplasma pneumoniae NOT DETECTED (NOT DETECTE); Parainfluenza Virus 1 NOT DETECTED (NOT DETECTE); Parainfluenza Virus 2 NOT DETECTED (NOT DETECTE); Parainfluenza Virus 3 NOT DETECTED (NOT DETECTE); Parainfluenza Virus 4 NOT DETECTED (NOT DETECTE); Respiratory Syncytial Virus NOT DETECTED (NOT DETECTE)
[2023-07-02 12:31] LABS: Basophils Absolute Auto 0.1 10^3/uL (0.0-0.1); Basophils Percent Auto 0.6 % (0.2-2.0); Eosinophils Absolute Auto 0.1 10^3/uL (0.0-0.7); Eosinophils Percent Auto 0.8 % (0.9-7.0); Hematocrit 38.9 % (36.0-48.0); Hemoglobin 12.1 g/dL (12.0-16.0); Immature Granulocytes Abs Auto 0.02 10^3/uL (0.00-0.03); Immature Granulocytes Pct Auto 0.2 % (0.0-0.5); Lymphocytes Absolute Auto 1.1 10^3/uL (1.2-3.8); Lymphocytes Percent Auto 12.5 % (20.5-60.0); Mean Corpuscular HGB Conc 31.1 g/dL (29.9-35.2); Mean Corpuscular Hemoglobin 29.4 pg (26.7-34.0); Mean Corpuscular Volume 94.4 fL (81.0-99.0); Mean Platelet Volume 8.9 fL (9.5-13.5); Monocytes Percent Auto 11.1 % (1.7-12.0); Neutrophils Absolute Auto 6.8 10^3/uL (1.4-6.5); Neutrophils Percent Auto 74.8 % (43.0-75.0); Platelet Count 331 10^3/uL (150-450); Red Blood Count 4.12 10^6/uL (4.20-5.40); Red Cell Distribution Width 14.8 % (11.0-15.0); White Blood Count 9.1 10^3/uL (4.0-11.0)
[2023-07-02 12:46] LABS: Alanine Aminotransferase 42 U/L (14-59); Albumin Globulin Ratio 0.8; Albumin Level 2.8 g/dL (3.4-5.0); Alkaline Phosphatase 112 U/L (46-116); Anion Gap 8.7; Aspartate Amino Transferase 35 U/L (15-37); BUN Creatinine Ratio 14.5; Bilirubin Total 1.1 mg/dL (0.2-1.0); Calcium 9.6 mg/dL (8.5-10.1); Carbon Dioxide 30.2 mmol/L (21.0-32.0); Chloride 102 mmol/L (98-107); Estimated GFR (African America >60 (>=60); Estimated GFR (Non-African Ame >60 (>=60); Globulin 3.4 g/dL; Glucose 391 mg/dL (74-106); Potassium 3.9 mmol/L (3.5-5.1); Sodium 137 mmol/L (136-145); Total Protein 6.2 g/dL (6.4-8.2)
[2023-07-02 12:50] LABS: Troponin I High Sensitivity 188.1 pg/mL (4.0-51.3)
--- NOTE | 2023-07-02 13:09 | XR_ITS ---
The [address] [address] Patient Name: LAURA LAWSON MRN: [id number] date: 1950 Sex: F Assigned Patient Location: ER Current Patient Location: ER Accession/Order Number: [id number] Exam Date: 07/02/2023 11:15 Report Date: 07/02/2023 13:41 At the request of: LUIS EASLEY Procedure: XR chest 1V EXAM: XR chest 1V at 1317 hours HISTORY: sob COMPARISON: 07/01/2023 TECHNIQUE: AP upright portable chest x-ray FINDINGS: The heart is enlarged and the vasculature isn't distended. Haziness at both lung bases are compatible with bilateral effusions. Additional opacity at the left lung base suggest atelectasis or infiltrate. There is no evidence of a pneumothorax. Degenerative changes are seen in the spine. XR/XR chest 1V IMPRESSION: Cardiomegaly with vascular congestion and bilateral effusions. An underlying atelectasis or infiltrate at the left lung base is suspected. Given the differences in technique and projection, the overall appearance of the chest has probably not changed significantly. Electronically authenticated by: GEREMIAS FERRIS Date: 07/02/2023 13:41
[2023-07-02] MEDS: NITROGLYCERIN 0.4 MG BOTTLE SL ×2 (13:25→14:49)
[2023-07-02] MEDS: ASPIRIN 81 MG TAB.CHEW 324 MG PO (13:26)
[2023-07-02] MEDS: HEPARIN SODIUM (PORCINE) 5,000 UNIT/ML VIAL 4000 UNIT IV (13:26)
[2023-07-02 13:34] LABS: SARS-CoV-2 DETECTED (NOT DETECTE)
[2023-07-02] MEDS: FUROSEMIDE 40 MG/4 ML VIAL IVP (14:49)
[2023-07-02 15:00] LABS: Troponin I High Sensitivity 179.7 pg/mL (4.0-51.3)
--- NOTE | 2023-07-02 15:20 | ED.SOB1 ---
HPI - SOB/Dyspnea General Chief Complaint: Shortness of Breath/Dyspnea Stated Complaint: SHORTNESS OF BREATH Time Seen by Provider: 07/02/23 12:02 Source: patient Mode of arrival: Wheelchair History of Present Illness HPI Narrative: The patient history of congestive heart failure as well as coronary artery disease presenting to the ER after she has been having shortness of breath for the last 2 days more than her baseline shortness of breath. When asked about her symptoms she denies any pain mentioned that she only have shortness of breath and she mentioned that she always had it for a long time but apparently over the last 2 days it increased. She did follow-up with her primary care doctor and they ordered an x-ray as outpatient and she is presenting today for evaluation. No cough no fever chills or any other complaints The patient mentioned that her Plavix that she was supposed to take is stopped by her physician and she is supposed to take daily aspirin that she did not take today Related Data Home Medications Medication Instructions Recorded Confirmed allopurinol 300 mg tablet 300 mg PO Q24H 07/02/23 07/02/23 aspirin 81 mg tablet,delayed 81 mg PO DAILY 07/02/23 07/02/23 release (Adult Aspirin Regimen) atorvastatin 40 mg tablet 40 mg PO Q24H 07/02/23 07/02/23 baclofen 10 mg tablet 10 mg PO Q24H 07/02/23 07/02/23 calcium citrate 315 mg-vitamin D3 1 tab PO BID 07/02/23 07/02/23 5 mcg (200 unit) tablet candesartan 32 mg tablet 32 mg PO DAILY 07/02/23 07/02/23 dulaglutide 1.5 mg/0.5 mL 1.5 mg subcut PRN 07/02/23 07/02/23 subcutaneous pen injector (Trulicity) hydralazine 100 mg tablet 100 mg PO Q8H 07/02/23 07/02/23 insulin glargine U-300 conc 300 30 unit subcut Q24H 07/02/23 07/02/23 unit/mL (3 mL) subcutaneous pen (Toujeo Max U-300 SoloStar) insulin lispro 100 unit/mL 1 sliding scale dose subcut PRN 07/02/23 07/02/23 subcutaneous solution (Humalog U-100 Insulin) labetalol 300 mg tablet 300 mg PO Q12H 07/02/23 07/02/23 meloxicam 15 mg tablet 15 mg PO Q24H 07/02/23 07/02/23 omeprazole 40 mg capsule,delayed 40 mg PO Q24H 07/02/23 07/02/23 release potassium chloride 20 mEq 20 meq PO BID 07/02/23 07/02/23 tablet,extended release (K-Tab) torsemide 20 mg tablet 20 mg PO Q12H 07/02/23 07/02/23 Allergies Allergy/AdvReac Type Severity Reaction Status Date / Time No Known Drug Allergies Allergy Verified 07/02/23 11:53 Review of Systems ROS Status of ROS 10 or more systems reviewed and unremarkable except as noted in history and below Exam Narrative Exam Narrative: Nurses notes and vital signs reviewed and patient is not hypoxic. General: Well-appearing and in no apparent distress. Skin: Warm, dry, no pallor noted. No rash. Head: Normocephalic, atraumatic. Neck: Supple, non-tender. Eye: Pupils are equal, round and EOMI. No scleral icterus. Ears, Nose, Mouth, and Throat: TM are clear, no nasal mucosal hypertrophy. Oral mucosa is moist, no posterior oropharynx erythema, uvula is mid-line Cardiovascular: Regular Rate and Rhythm without murmur, gallop or rub. Respiratory: No accessory muscle use or respiratory distress. Lungs are crackles heard in both lung ruboi up to the mid lung bilaterally. Chest Wall: no tenderness Back: No midline thoracic or lumbar vertebral tenderness. No CVA tenderness Musculoskeletal: normal ROM, no calf or popliteal tenderness, no lower extremity edema/swelling GI: Abdomen is soft, non-distended. Normal bowel sounds. No masses appreciated. No tenderness to palpation. No rebound, guarding, or rigidity noted. Neurological: A&O x4. No cranial nerve dysfunction observed. Moves all extremities. Sensation intact. Constitutional Vital Signs, click to edit/add: Last Vital Signs Temp 98.2 F 07/02/23 11:45 Pulse 65 07/02/23 17:04 Resp 21 07/02/23 17:04 BP 207/107 H 07/02/23 17:04 Pulse Ox 92 L 07/02/23 17:04 O2 Del Method Room Air 07/02/23 11:45 Course Vital Signs Vital signs: Vital Signs Temperature 98.2 F 07/02/23 11:45 Pulse Rate 77 07/02/23 11:45 Respiratory Rate 20 07/02/23 11:45 Blood Pressure 179/79 H 07/02/23 11:45 Pulse Oximetry 94 L 07/02/23 11:45 Oxygen Delivery Method Room Air 07/02/23 11:45 Temperature 98.2 F 07/02/23 11:45 Pulse Rate 65 07/02/23 17:04 Respiratory Rate 21 07/02/23 17:04 Blood Pressure 207/107 H 07/02/23 17:04 Pulse Oximetry 92 L 07/02/23 17:04 Oxygen Delivery Method Room Air 07/02/23 11:45 MDM - SOB/Dyspnea MDM Narrative Medical decision making narrative: EKG showing sinus rhythm with a heart rate of [address] elevation or depression there are T wave inversion in lead III as well as aVF and V6 The patient chest x-ray shows bilateral pulmonary edema The patient CBC showed no acute significant pathology with the chemistry showing that the patient have elevated troponin with elevated BNP up, with the fact that the patient have no chest pain at the moment and she recently had her Plavix stopped I spoke with Dr. Brooks the wrister on-call and he agreed that the patient is in acute congestive heart failure and he did not want any further anticoagulation but the patient was started on Lasix 40 mg IV once in addition to she was received nitroglycerin upon arrival. The patient will be transferred to [facility] I did speak with and she accepted the patient. Troponin repeated twice did not show any elevation Lab Data Labs: Lab Results 07/02/23 07/02/23 07/02/23 Range/Units 12:11 12:14 14:30 WBC 9.1 (4.0-11.0) 10^3/uL RBC 4.12 L (4.20-5.40) 10^6/uL Hgb 12.1 (12.0-16.0) g/dL Hct 38.9 (36.0-48.0) % MCV 94.4 (81.0-99.0) fL MCH 29.4 (26.7-34.0) pg MCHC 31.1 (29.9-35.2) g/dL RDW 14.8 (11.0-15.0) % Plt Count 331 (150-450) 10^3/uL MPV 8.9 L (9.5-13.5) fL Neut % (Auto) 74.8 (43.0-75.0) % Lymph % (Auto) 12.5 L (20.5-60.0) % [place] % (Auto) 11.1 (1.7-12.0) % Eos % (Auto) 0.8 L (0.9-7.0) % Baso % (Auto) 0.6 (0.2-2.0) % Neut # (Auto) 6.8 H (1.4-6.5) 10^3/uL Lymph # (Auto) 1.1 L (1.2-3.8) 10^3/uL [place] # (Auto) 1.0 H (0.3-0.8) 10^3/uL Eos # (Auto) 0.1 (0.0-0.7) 10^3/uL Baso # (Auto) 0.1 (0.0-0.1) 10^3/uL Abs Immat Gran (auto) 0.02 (0.00-0.03) 10^3/uL Imm/Tot Granulo (auto) 0.2 (0.0-0.5) % Sodium 137 (136-145) mmol/L Potassium 3.9 (3.5-5.1) mmol/L Chloride 102 (98-107) mmol/L Carbon Dioxide 30.2 (21.0-32.0) mmol/L Anion Gap 8.7 BUN 12.0 (7.0-18.0) mg/dL Creatinine 0.83 (0.55-1.02) mg/dL Est GFR ( Amer) >60 (>=60) Est GFR (Non-Af Amer) >60 (>=60) BUN/Creatinine Ratio 14.5 Glucose 391 H (74-106) mg/dL Calcium 9.6 (8.5-10.1) mg/dL Total Bilirubin 1.1 H (0.2-1.0) mg/dL AST 35 (15-37) U/L ALT 42 (14-59) U/L Alkaline Phosphatase 112 (46-116) U/L Troponin I High Sens 188.1 H* 179.7 H* (4.0-51.3) pg/mL NT-Pro-B Natriuret Pep 42358.0 H* (<=900.0) pg/mL Total Protein 6.2 L (6.4-8.2) g/dL Albumin 2.8 L (3.4-5.0) g/dL Globulin 3.4 g/dL Albumin/Globulin Ratio 0.8 Adenovirus (PCR) Not detected (NOT DETECTE) C. pneumoniae DNA (PCR) Not detected (NOT DETECTE) Coronavirus Type OC43 Not detected (NOT DETECTE) Coronavirus Type HKU1 Not detected (NOT DETECTE) Coronavirus Type 229E Not detected (NOT DETECTE) Coronavirus Type NL63 Not detected (NOT DETECTE) Human Metapneumovir PCR Not detected (NOT DETECTE) M. pneumoniae (PCR) Not detected (NOT DETECTE) Parainfluenza PCR Not detected (NOT DETECTE) Parainfluenza 2 (PCR) Not detected (NOT DETECTE) Parainfluenza 3 (PCR) Not detected (NOT DETECTE) Parainfluenza 4 (PCR) Not detected (NOT DETECTE) RSV (RT-PCR) Not detected (NOT DETECTE) Entero/Rhino (PCR) Not detected (NOT DETECTE) SARS-CoV-2 (PCR) Detected A (NOT DETECTE) Bordetella pertussis (PCR) Not detected (NOT DETECTE) B parapertussis DNA PCR Not detected (NOT DETECTE) Influenza Type A (PCR) Not detected (NOT DETECTE) Influenza Type B (PCR) Not detected (NOT DETECTE) Discharge Plan Discharge Chief Complaint: Shortness of Breath/Dyspnea Clinical Impression: COVID-19, Acute non-ST elevation myocardial infarction (NSTEMI) Acute exacerbation of CHF (congestive heart failure) Qualifiers: Heart failure type: systolic Qualified Code(s): I50.23 - Acute on chronic systolic (congestive) heart failure Patient Disposition: [facility] Discharge Location: [facility]
[2023-07-02] MEDS: HYDRALAZINE HCL 20 MG/ML VIAL 10 MG IVP (17:43)
[2023-07-02] MEDS: HYDRALAZINE HCL 25 MG TABLET 100 MG PO (17:43)
== END 2023-07-02 22:17 | disposition short-term general hospital (02) ==
PROVIDERS: Emergency Provider Emergency Medicine; PCP Internal Medicine
DX: I21.4 Non-ST elevation (NSTEMI) myocardial infarction (principal); U07.1 COVID-19; R06.02 Shortness of breath; I25.10 Atherosclerotic heart disease of native coronary artery without angina pectoris; Z79.82 Long term (current) use of aspirin; I50.23 Acute on chronic systolic (congestive) heart failure; Z79.85 Long-term (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 of injectable non-insulin antidiabetic drugs; Z79.4 Long term (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 of insulin
CPT/HCPCS: 0202U; 36415; 71045; 80053; 83880; 84484; 85025; 93005; 96374; 96375; 99285; J0360; J1940

== ENCOUNTER 2023-07-23 09:57 | Outpatient (OUT) | payer MEDICARE, OTHER, SELFPAY ==
--- NOTE | 2023-07-23 11:33 | CA_ITS ---
Patient Name: LAURA LAWSON MR#: [id number] : 1950 Exam Date: 07/23/2023 Ordering Doctor: NIRAJ GONZALES CNP ECHOCARDIOGRAM REPORT PROCEDURE: CA ECHO DOPPLER COMPLETE INDICATIONS: Acute on chronic diastolic (congestive) heart failure COMPARISON: None. DESCRIPTION: COMPLETE ECHOCARDIOGRAM Real-time transthoracic echocardiography with 2D, M-mode, spectral and color flow Doppler performed. QUALITY: Technical quality was good. LEFT VENTRICLE: Normal chamber size. Moderate concentric left ventricular hypertrophy. Global left ventricular systolic function is moderately to severely decreased. Abnormal septal motion is likely due to bundle branch block. LV EF: Moderately to severely reduced left ventricular ejection fraction, (30%). DIASTOLIC: ATRIAL SEPTUM: LEFT ATRIUM: Severe dilatation. RIGHT ATRIUM: Mild dilatation. RIGHT VENTRICLE: Normal chamber size. Normal right ventricular systolic function. TRICUSPID VALVE: Normal mobility and thickness. No stenosis with trivial regurgitation. No evidence of pulmonary hypertension. RVSP 17 mmHg MITRAL VALVE: Moderately thickened with decreased mobility. No mitral valve stenosis. Moderate mitral annular calcification. Mild mitral regurgitation. AORTIC VALVE: Normal trileaflet appearance. Thickened aortic valve. Normal leaflet mobility. No evidence of aortic valve stenosis. DVI 0.6. No aortic regurgitation. AORTIC ROOT: Normal diameter and appearance. PULMONIC VALVE: Normal thickness and mobility. No stenosis. Mild regurgitation. PERICARDIUM: Moderate circumferential pericardial effusion. There are no echocardiographic features of cardiac tamponade physiology. IVC: Collapses with inspirations. Normal size. PLEURA: CONCLUSION: 1. Moderate concentric left ventricular hypertrophy with moderately to severely reduced systolic function. LVEF is estimated at 30%. 2. Normal right ventricular size and systolic function. 3. Severe left atrial dilatation. 4. Mild mitral regurgitation. 5. Moderate circumferential pericardial effusion with no echocardiographic features of tamponade physiology. Adult Echocardiography Procedure Report Left Ventricle LVEDD (3.7 - 5.6 cm): 5.36 cm LVESD (2.2 - 4.0 cm): 4.87 cm LVIVS thickness (0.6 - 1.2 cm): 1.37 cm LVPW thickness (0.5 - 1.0 cm): 1.52 cm e': 0.08 m/s E - e': 10.86 LVOT Max Gradient: 2.70 mm[Hg] LVOT Area (cm2): 0.82 m/s Peak Velocity (LVOT): 0.82 m/s Mean Velocity (LVOT): 0.52 m/s LVOT Diameter 1.69 cm Left Ventricular Ejection Fraction: 30 % Left Atrium LA Volume Index (2D A2C): 73.61 ml/m2 Left Atrium Systolic Dimension: 4.81 cm Mitral Valve MV E to A Ratio: 0.73 Mitral Valve A-Wave Peak Velocity: 1.25 m/s Mitral Valve E-Wave Peak Velocity: 0.92 m/s Right Ventricle RV Internal Diastolic Dimension: 4.75 cm Aorta AO Root Diam: 3.14 cm Ascending Ao Diam: 3.17 cm Aortic Valve AoV Area (Peak Dixon): 1.25 cm2, 1.25 cm2 AoV Area (VTI): 1.07 cm2, 1.07 cm2 Peak Velocity(Antegrade Flow): 1.47 m/s, 1.47 m/s Peak Gradient(Antegrade Flow): 8.67 mm[Hg], 8.67 mm[Hg] Mean Velocity(Antegrade Flow): 0.96 m/s, 0.95 m/s Mean Gradient(Antegrade Flow): 4.37 mm[Hg], 4.27 mm[Hg] Velocity Time Integral: 35.23 cm, 35.57 cm Tricuspid Valve Peak Velocity (Regurgitant Flow): 1.62 m/s, 1.84 m/s, 1.78 m/s Pulmonic Valve Mean Gradient: 2.05 mm[Hg], 2.33 mm[Hg] Mean Velocity: 0.67 m/s, 0.70 m/s Peak Velocity: 1.10 m/s Peak Gradient: 4.57 mm[Hg], 5.03 mm[Hg] Right Atrium Right Atrium Systolic Pressure: 50.67 ml, 50.67 ml Dictated by: Rudy Zendejas M.D. on 07/23/2023 at 19:46 Approved by: Rudy Zendejas M.D. on 07/23/2023 at 19:56
== END 2023-07-23 09:58 | disposition home or self-care (01) ==
LOC: CARD 09:57
PROVIDERS: PCP Internal Medicine; Visit Provider Nurse Practitioner Family
DX: I50.33 Acute on chronic diastolic (congestive) heart failure (principal)
CPT/HCPCS: 93306; 93356

== ENCOUNTER 2023-08-14 14:01 | Outpatient (OUT) | payer MEDICARE, OTHER, SELFPAY ==
--- NOTE | 2023-08-14 15:01 | CA_ITS ---
Patient Name: LAURA LAWSON MR#: [id number] : 1950 Exam Date: 08/14/2023 Ordering Doctor: NIRAJ GONZALES CNP ECHOCARDIOGRAM REPORT PROCEDURE: CA ECHO LIMITED INDICATIONS: Acute systolic (congestive) heart failure COMPARISON: None. DESCRIPTION: Limited ECHOCARDIOGRAM Real-time transthoracic echocardiography with 2D and M-mode performed. QUALITY: Technical quality was good. LEFT VENTRICLE: Normal chamber size. Moderate concentric left ventricular hypertrophy. Global left ventricular systolic function is mildly decreased. Abnormal septal motion likely due to bundle branch block. LV EF: Visual estimation of left ventricular ejection fraction is 45% DIASTOLIC: ATRIAL SEPTUM: LEFT ATRIUM: Moderate dilatation. RIGHT ATRIUM: Mild dilatation. RIGHT VENTRICLE: Normal chamber size. Normal right ventricular systolic function. TRICUSPID VALVE: Normal mobility and thickness. MITRAL VALVE: Normal mobility and thickness. Mild mitral annular calcification. AORTIC VALVE: Normal trileaflet appearance. Mildly calcified aortic valve. Normal leaflet mobility. AORTIC ROOT: Normal diameter and appearance. PULMONIC VALVE: Not well visualized. PERICARDIUM: Small pericardial effusion. Measuring 1.3 cm IVC: Collapses with inspirations. Normal size. PLEURA: CONCLUSION: 1. Moderate concentric left ventricular hypertrophy with mildly reduced systolic function. LVEF is estimated at 45%. 2. Normal right ventricular size and systolic function. 3. Small pericardial effusion. 4. Limited study performed with no Doppler interrogation as requested. Adult Echocardiography Procedure Report Left Ventricle LVEDD (3.7 - 5.6 cm): 5.02 cm LVESD (2.2 - 4.0 cm): 4.25 cm LVIVS thickness (0.6 - 1.2 cm): 1.26 cm LVPW thickness (0.5 - 1.0 cm): 1.37 cm LVOT Diameter 1.84 cm Left Ventricular Ejection Fraction: 45% Left Atrium LA Volume Index (2D A2C): 62.89 ml/m2 Left Atrium Systolic Dimension: 4.26 cm Mitral Valve Right Ventricle RV Internal Diastolic Dimension: 3.59 cm Aorta AO Root Diam: 2.72 cm Aortic Valve Tricuspid Valve Pulmonic Valve Right Atrium Right Atrium Systolic Pressure: 33.07 ml, 33.07 ml Dictated by: Rudy Zendejas M.D. on 08/14/2023 at 16:57 Approved by: Rudy Zendejas M.D. on 08/14/2023 at 17:01
[2023-08-14 15:39] LABS: Basophils Absolute Auto 0.1 10^3/uL (0.0-0.1); Basophils Percent Auto 0.5 % (0.2-2.0); Eosinophils Absolute Auto 0.2 10^3/uL (0.0-0.7); Eosinophils Percent Auto 1.8 % (0.9-7.0); Hematocrit 42.4 % (36.0-48.0); Hemoglobin 13.2 g/dL (12.0-16.0); Immature Granulocytes Abs Auto 0.02 10^3/uL (0.00-0.03); Immature Granulocytes Pct Auto 0.2 % (0.0-0.5); Lymphocytes Absolute Auto 1.5 10^3/uL (1.2-3.8); Lymphocytes Percent Auto 16.9 % (20.5-60.0); Mean Corpuscular HGB Conc 31.1 g/dL (29.9-35.2); Mean Corpuscular Volume 96.4 fL (81.0-99.0); Mean Platelet Volume 9.3 fL (9.5-13.5); Monocytes Absolute Auto 0.8 10^3/uL (0.3-0.8); Monocytes Percent Auto 8.8 % (1.7-12.0); Neutrophils Absolute Auto 6.6 10^3/uL (1.4-6.5); Neutrophils Percent Auto 71.8 % (43.0-75.0); Platelet Count 266 10^3/uL (150-450); Red Cell Distribution Width 15.1 % (11.0-15.0); White Blood Count 9.1 10^3/uL (4.0-11.0)
[2023-08-14 16:05] LABS: Anion Gap 7.7; BUN Creatinine Ratio 23.1; Calcium 9.9 mg/dL (8.5-10.1); Chloride 103 mmol/L (98-107); Estimated GFR (African America >60 (>=60); Estimated GFR (Non-African Ame >60 (>=60); Glucose 307 mg/dL (74-106); Potassium 4.7 mmol/L (3.5-5.1); Sodium 136 mmol/L (136-145)
== END 2023-08-14 14:02 | disposition home or self-care (01) ==
LOC: CARD 14:02
PROVIDERS: PCP Internal Medicine; Visit Provider Nurse Practitioner Family
DX: I50.21 Acute systolic (congestive) heart failure (principal)
CPT/HCPCS: 36415; 80048; 85025; 93308; 93356

== ENCOUNTER 2023-10-03 15:00 | Outpatient (OUT) | payer MEDICARE, OTHER, SELFPAY ==
[2023-10-03 15:30] LABS: Anion Gap 12.3; BUN Creatinine Ratio 33.9; Calcium 10.5 mg/dL (8.5-10.1); Carbon Dioxide 29.9 mmol/L (21.0-32.0); Chloride 103 mmol/L (98-107); Estimated GFR (African America >60 (>=60); Estimated GFR (Non-African Ame 50 (>=60); Glucose 283 mg/dL (74-106); Potassium 4.2 mmol/L (3.5-5.1); Sodium 141 mmol/L (136-145)
[2023-10-03 16:37] LABS: Basophils Absolute Auto 0.1 10^3/uL (0.0-0.1); Basophils Percent Auto 0.6 % (0.2-2.0); Eosinophils Absolute Auto 0.3 10^3/uL (0.0-0.7); Eosinophils Percent Auto 2.7 % (0.9-7.0); Hematocrit 40.1 % (36.0-48.0); Hemoglobin 12.6 g/dL (12.0-16.0); Immature Granulocytes Abs Auto 0.02 10^3/uL (0.00-0.03); Immature Granulocytes Pct Auto 0.2 % (0.0-0.5); Lymphocytes Absolute Auto 1.6 10^3/uL (1.2-3.8); Lymphocytes Percent Auto 17.4 % (20.5-60.0); Mean Corpuscular HGB Conc 31.4 g/dL (29.9-35.2); Mean Corpuscular Hemoglobin 30.7 pg (26.7-34.0); Mean Corpuscular Volume 97.8 fL (81.0-99.0); Mean Platelet Volume 9.5 fL (9.5-13.5); Monocytes Absolute Auto 0.9 10^3/uL (0.3-0.8); Monocytes Percent Auto 9.9 % (1.7-12.0); Neutrophils Absolute Auto 6.5 10^3/uL (1.4-6.5); Neutrophils Percent Auto 69.2 % (43.0-75.0); Platelet Count 271 10^3/uL (150-450); Red Cell Distribution Width 14.7 % (11.0-15.0); White Blood Count 9.3 10^3/uL (4.0-11.0)
== END 2023-10-03 15:01 | disposition home or self-care (01) ==
LOC: LAB 15:04
PROVIDERS: PCP Internal Medicine; Visit Provider Internal Medicine Interventional Cardiology
DX: I50.21 Acute systolic (congestive) heart failure (principal)
CPT/HCPCS: 36415; 80048; 85025

== ENCOUNTER 2023-11-07 10:32 | Outpatient (OUT) | payer MEDICARE, OTHER, SELFPAY ==
--- NOTE | 2023-11-07 10:30 | CA_ITS ---
Patient Name: LAURA LAWSON MR#: [id number] : 1950 Exam Date: 11/07/2023 Ordering Doctor: NIRAJ GONZALES CNP ECHOCARDIOGRAM REPORT PROCEDURE: CA ECHO LIMITED INDICATIONS: Heart failure with reduced ejection fraction, cardiac stents, hypertension, diabetes COMPARISON: None. DESCRIPTION: Limited ECHOCARDIOGRAM Real-time transthoracic echocardiography with 2D and M-mode performed. QUALITY: Limited echocardiogram per physician order. 62 , 230#, BP 124/60 LEFT VENTRICLE: Normal chamber size. Moderate concentric left ventricular hypertrophy. Calculated left ventricular ejection fraction is 50% LV EF: Global left ventricular systolic function is difficult to assess but appears mildly reduced; visually estimated ejection fraction is 40 to 45%. Unable to assess regional wall motion abnormality; consider contrast study for better delineation of endocardial borders. LEFT ATRIUM: Severe dilatation. RIGHT ATRIUM: Moderate dilatation. RIGHT VENTRICLE: Normal chamber size. Normal systolic function. TRICUSPID VALVE: Normal mobility and thickness. MITRAL VALVE: Mildly thickened with normal mobility. Mild mitral annular calcification. AORTIC VALVE: Normal trileaflet appearance. Mildly calcified aortic valve. AORTIC ROOT: Poorly seen. PULMONIC VALVE: Normal thickness and mobility. PERICARDIUM: Anterior free space; trivial effusion versus fat pad. IVC: Collapses with inspirations. CONCLUSION: 1. Global left ventricular systolic function is difficult to assess but appears mildly reduced; visually estimated ejection fraction is 40 to 45% 2. Normal right ventricular size and systolic function 3. Anterior free space; trivial effusion versus fat pad A Limited echocardiogram was performed Adult Echocardiography Procedure Report Left Ventricle LVEDD (3.7 - 5.6 cm): 4.47 cm LVESD (2.2 - 4.0 cm): 3.83 cm LVIVS thickness (0.6 - 1.2 cm): 1.78 cm LVPW thickness (0.5 - 1.0 cm): 1.35 cm LVOT Diameter 2.18 cm Left Atrium LA Volume Index (2D A2C): 59.80 ml/m2 Left Atrium Systolic Dimension: 4.71 cm Mitral Valve Right Ventricle Aorta AO Root Diam: 3.34 cm Aortic Valve Tricuspid Valve Pulmonic Valve Right Atrium Right Atrium Systolic Pressure: 66.25 ml, 66.25 ml Dictated by: Naz Byers M.D. on 11/10/2023 at 15:49 Approved by: Naz Byers M.D. on 11/10/2023 at 15:52
== END 2023-11-07 10:33 | disposition home or self-care (01) ==
LOC: CARD 10:33
PROVIDERS: PCP Internal Medicine; Visit Provider Nurse Practitioner Family
DX: I50.22 Chronic systolic (congestive) heart failure (principal)
CPT/HCPCS: 93308

== ENCOUNTER 2023-12-04 14:08 | Outpatient (OUT) | payer MEDICARE, OTHER, SELFPAY ==
--- NOTE | 2023-12-04 14:12 | MM_ITS ---
Patient Name: LAURA LAWSON MR#: [id number] : 1950 Exam Date: 12/04/2023 Ordering Doctor: DR ABRAHAM REILLY M.D. RADIOLOGY REPORT PROCEDURE: MM TOMOSYNTHESIS SCREENING BI COMPARISON: MG MAMM SCREEN 3D YANETH CAD, 01/10/2021. MG MAMM SCREEN 3D YANETH CAD, 11/06/2022. INDICATIONS: Screening for malignant neoplasm Calculator Name NCI Breast Cancer Risk Assessment Tool 5 Year Breast Cancer Risk 1.90% Lifetime Breast Cancer Risk 5.40% Personal Breast Cancer No Personal Ovarian Cancer No Treatments None Family Cancers None LOCATION: [facility] BREAST COMPOSITION: There are scattered areas of fibroglandular density. FINDINGS: DIAGNOSTIC CATEGORY 2--BENIGN FINDING. NO CHANGE FROM COMPARISON. Scattered benign-appearing calcifications are present. Scattered benign-appearing lymph nodes are present. Multiple serpiginous vessels, grossly stable RIGHT BREAST: No significant suspicious finding. LEFT BREAST: No significant suspicious finding. RECOMMENDATIONS: ROUTINE MAMMOGRAM AND CLINICAL EVALUATION IN 12 MONTHS. PLEASE NOTE: A NORMAL MAMMOGRAM DOES NOT EXCLUDE THE POSSIBILITY OF BREAST CANCER. A CLINICALLY SUSPICIOUS PALPABLE LUMP SHOULD BE BIOPSIED. Dictated by: Jordy Joe MD on 12/04/2023 at 15:40 Approved by: Jordy Joe MD on 12/04/2023 at 15:43
--- OUTSIDE RECORDS SUMMARY | 2023-12-04 14:21 | XMS_ITS | CCD ---
Author Organization [facility] Care Team Providers Care Painter Rough Name Role Phone PHYSICIAN, DEFAULT Admitting Unavailable PHYSICIAN, DEFAULT Attending Unavailable VLAD CESAR Primary Care Unavailable PHYSICIAN, DEFAULT Admitting Unavailable PHYSICIAN, DEFAULT Attending Unavailable VLAD CESAR Primary Care Unavailable Devang Saavedra Unavailable Abner Roa Unavailable MD Abner Roa Attending Provider [phone] MARK Cesar Primary Care Provider MD Abner [...] Other Provider DO Anton Lane Other Provider [phone] MD Awais Bunn Other Provider MD Sonia Mckeon Other Provider MD Boubacar Weston Other Provider SHANDRA Ely-Dodie Fisher Other Provider MD Roman Rosales E Other Provider MD Riccardo Jenkins Other Provider MD Edie Granados Other Provider MD Eddy Luu Other Provider DO Laine Swan Other Provider Al MD Ruperto Servin Other Provider DO Edwardo Ramirez Other Provider DO Ziggy Veronn Other Provider DOTTY Degroot Other Provider DO Noam Albarado Other Provider MD Jacobo Montes Other Provider KENDALL Flowers Other Provider Unavailable MARK Cesar Primary Care Provider [phone] MD Abner Roa Admit Provider MD Abner Roa Attending Provider MD Chidi Bowen Admit Provider MD Chidi Bowen Attending Provider KENDALL Mancilla Other Provider Unavailable KENDALL Linares Other Provider Unavailable KENDALL Benson Other Provider Unavailable Jony RN Arcelia Other Provider Unavailable KENDALL Luong Other Provider Unavailable KENDALL Gardner Other Provider Unavailable MD Meliton Schwartz Other Provider MD Fred Nash Other Provider Dials, DIDACTIC INSTRUCTOR Mirtha M Other Provider DO Yesi Dickens [...] Provider DO Laine Swan Other Provider MD Ruperto Dempsey Other Provider DO Edwardo Ramirez Other Provider DO Janeen Ziggy Mona Other Provider DOTTY Degroot Other Provider DO Noam Albarado Other Provider [phone] MD Jacobo Montes M Other Provider KENDALL Flowers Other Provider Unavailable Cesar, II Vlad Primary Care Provider MD Abner Roa Attending Provider [phone] Cesar, II Vlad Primary Care Provider MD Abner Roa Attending Provider ARSENIO, DR ROSARIO Primary Care Unavailable HAY ., DR PRICE Attending Unavailable HAY ., DR PRICE Consulting Unavailable HAY ., DR PRICE Admitting Unavailable RUSSELL YATES Consulting Unavailable ARSENIO, DR ROSARIO Attending Unavailable ARSENIO, DR ROSARIO Consulting Unavailable ARSENIO, DR ROSARIO Primary Care Unavailable ARSENIO, DR ROSARIO Admitting Unavailable ARSENIO, DR ROSARIO Admitting Unavailable CESAR, DR ROSARIO Attending Unavailable CESAR, DR ROSARIO Consulting Unavailable ARSENIO, DR ROSARIO Primary Care Unavailable Arsenio, II Vlad Primary Care Provider MD Abner Roa Attending Provider Unavailable Primary Care Provider UnavailVlad Leon MD Primary Care Provider Vlad Cesar MD Unavailable [phone] ROBBI URIBE Attending Unavailable Abner Roa Admitting Unavailable Abner Roa Attending Unavailable Vlad Cesar Primary Care Unavailable Abner Roa Admitting Unavailable Abner Roa Attending Unavailable Vlad Cesar Primary Care Unavailable Abner Roa Admitting Unavailable Abner Roa Attending Unavailable Vlad Cesar Primary Care Unavailable Arsenio, II Vlad Primary Care Provider [phone] MD Abner Roa Attending Provider IVORY GARRETT Referring Unavailable DALE ACOSTA Referring Unavailable IVORY GARRETT Referring Unavailable DALE ACOSTA Referring Unavailable SHAWNA LEBLANC Attending Unavailable UNKNOWN, UNKNOWN Referring Unavailable ALEX, IVON Admitting Unavailable JOSHUA GRIDER Referring Unavailable MOUKARBEL, JULITO Referring Unavailable DALE ACOSTA Referring Unavailable NIRAJ SAN Attending Unavailable DEANASHAWNA Referring Unavailable NIRAJ SAN Attending Unavailable DULCE GARCIA Attending Unavailable MOSONIA, JULITO Attending Unavailable MOUKASHELLY, JULITO Referring Unavailable JOSHUA GRIDER Admitting Unavailable JANET RUPERTO Attending Unavailable JULITO ZENDEJAS Admitting Unavailable JULITO ZENDEJAS Attending Unavailable JULITO ZENDEJAS Referring Unavailable MARY, JULITO Referring Unavailable NIRAJ SAN Attending Unavailable ANGELIKA SANTOS Referring Unavailable VLAD CESRA Attending Unavailable MYA CISSE Attending Unavailable VLAD CESAR Attending Unavailable VLAD CESAR Attending Unavailable MYA CISSE Attending Unavailable VLAD CESAR Attending Unavailable VLAD CESAR Attending Unavailable Allergies Allergy Classification Reported Allergen(s) Allergy Type Date of Onset Reaction(s) Facility (1 source) 47742,00; Translations: [12595,00] Propensity to adverse reactions (disorder) 9 [facility] (20 sources) gabapentin; Translations: [GABAPENTIN] Drug Allergy 2 Palpitations [facility] (13 sources) traMADol; Translations: [tramadol] Drug Allergy 2 Other [facility] (1 source) gabapentin Drug Allergy 4 [facility] Medications Current Medications Medication Drug Class(es) Dates Sig (Normalized) Sig (Original) acetaminophen 325 mg oral tablet (13 sources) Start: 03-21-2022 End: 04-03-2022 take 650 mg by mouth every four hours Acetaminophen Active 650 MG PO Q4H 100 April 03, 2022 12:00am allopurinol 300 mg oral tablet (20 sources) Xanthine Oxidase Inhibitor Start: 03-05-2022 End: 04-03-2022 allopurinol (Zyloprim) 300 MG tablet Indications: Gout, unspecified cause, unspecified chronicity, unspecified site TAKE 1 TABLET DAILY 90 tablet 3 11/22/2022 Active Aspir-81 (15 sources) Aspir-81 Active aspirin 81 mg delayed release oral tablet (19 sources) Platelet Aggregation Inhibitor, Nonsteroidal Anti-inflammatory Drug Start: 03-05-2022 End: 04-03-2022 take 81 mg by mouth once daily Aspirin Active 81 MG PO Daily April 03, 2022 12:00am atorvastatin 80 mg oral tablet (20 sources) HMG-CoA Reductase Inhibitor Start: 07-31-2023 End: 07-30-2024 take 1 tablet by mouth in the morning atorvastatin (LIPITOR) 80 mg tablet Take 1 tablet (80 mg total) by mouth in the morning. 0 07/31/2023 07/30/2024 Active Start: 03-05-2022 End: 04-03-2022 take 1 tablet by mouth at bedtime atorvastatin (Lipitor) 40 MG tablet Indications: Hyperlipidemia, unspecified hyperlipidemia type (CMS/HCC) Take 1 tablet (40 mg) by mouth at bedtime 0 07/09/2023 Active baclofen 10 mg oral tablet (20 sources) gamma-Aminobutyric Acid-ergic Agonist Start: 08-13-2023 take 1 tablet by mouth in the morning, then take 1 tablet by mouth at bedtime baclofen (LIORESAL) 10 mg tablet Take 1 tablet (10 mg total) by mouth in the morning and 1 tablet (10 mg total) before bedtime. 0 08/13/2023 Active Start: 03-05-2022 End: 04-03-2022 take 1 tablet by mouth at bedtime baclofen (Lioresal) 10 MG tablet Indications: Muscle spasm Take 1 tablet (10 mg) by mouth at bedtime 0 07/09/2023 Active bumetanide 1 mg oral tablet (20 sources) Loop Diuretic Start: 03-05-2022 End: 04-03-2022 take 1 mg by mouth once daily Bumetanide Active 1 MG PO Daily April 03, 2022 12:00am calcium carbonate 1250 mg oral tablet (15 sources) Start: 04-03-2022 Calcium Carbon ate (Oyster Shell Calcium 500) 500 mg calcium (1,250 mg) Tablet Active 1000 MG PO Daily April 03, 2022 12:00am Start: 03-05-2022 End: 04-03-2022 Calcium Carbonate (Calcium 6 00) 600 mg calcium (1,500 mg) Tablet Discontinued 1200 MG PO Daily March 05, 2022 12:00am April 03, 2022 8:52am Calcium Citrate (15 sources) take 1 tablet by mouth once daily Calcium Citrate 333 MG 1 tablet Orally Once a day Active Calcium Citrate / Vitamin D (2 sources) take 2 tablets by mouth once in the morning Calcium Citrate-Vitamin D (CITRACAL/VITAMIN D PO) Take 2 tablets by mouth in the morning and 2 tablets before bedtime. 0 Active candesartan cilexetil 32 mg oral tablet (20 sources) Angiotensin 2 Receptor Oniel Start: candesartan (Atacand) 32 MG tablet Indications: Hypertension, unspecified type (CMS/HCC) TAKE 1 TABLET DAILY 90 tablet 3 11/22/2022 Active Start: 03-05-2022 End: 04-03-2022 take 32 mg by mouth once daily Candesartan Discontinue d 32 MG PO Daily March 05, 2022 12:00am April 03, 2022 8:52am carvedilol 6.25 mg oral tablet (4 sources) alpha-Adrenergic Oniel, beta-Adrenergic Oniel Start: 07-07-2023 End: 10-10-2023 take 1 tablet by mouth in the morning, then take 1 tablet by mouth at bedtime carvediloL (COREG) 6.25 mg tablet Take 1 tablet (6.25 mg total) by mouth in the morning and 1 tablet (6.25 mg total) before bedtime. 0 07/07/2023 10/10/2023 Active cyclobenzaprine hydrochloride 10 mg oral tablet (13 sources) Muscle Relaxant Start: 03-21-2022 End: 04-03-2022 take 10 mg by mouth every eight hours Cyclobenzaprine Active 10 MG PO Every 8 hours April 03, 2022 12:00am dapagliflozin 10 mg oral tablet (4 sources) Sodium-Glucose Cotransporter 2 Inhibitor Start: 07-08-2023 End: 10-10-2023 take 1 tablet by mouth in the morning dapagliflozin propanediol (FARXIGA) 10 mg tablet Take 1 tablet (10 mg total) by mouth in the morning. 0 07/08/2023 10/10/2023 Active docusate sodium 100 mg oral capsule (20 sources) Start: 04-03-2022 take 200 mg by mouth once daily Docusate Sodium Active 200 MG PO Daily 60 April 03, 2022 12:00am Start: 03-05-2022 End: 04-03-2022 Docusate Sodium (Stool Softe ner) 100 mg Capsule Discontinued 200 MG PO Daily March 05, 2022 12:00am April 03, 2022 8:52am take 1 capsule by cox monett every twenty-four hours Stool Softener 100 MG 1 capsule as needed Orally Once a day Active docusate sodium 50 mg / sennosides, nursing home 8.6 mg oral tablet (13 sources) Start: 03-21-2022 End: 04-03-2022 take 2 tablets by mouth twice daily Sennosides-Docusate Sodium (Stool Softener-Stimulant Laxat) 8.6-50 mg Tablet Active 2 TAB PO Twice daily 60 April 03, 2022 12:00am 0.5 ml dulaglutide 3 mg/ml auto-injector (20 sources) GLP-1 Receptor Agonist Start: 07-08-2022 inject 1.5 mg by subcutaneous injection every week TRULICITY 1.5 mg/0.5 mL pen injector Inject 1.5 mg under the skin once a week. 0 05/15/2023 Active Start: 04-03-2022 Dulaglutide (T rulicity) Active 1.5 MG SUBCUT Laguerre@0900 1 April 02, 2022 11:00pm Start: 04-03-2022 Dulaglutide (T rulicity) Active 1.5 MG SUBCUT Laguerre@0900 1 April 03, 2022 12:00am Start: 03-05-2022 End: [...] times daily for 30 day(s) Nov, Active HANDICAP PLACARD 5 YEAR (2 sources) Start: 12-02-2022 HANDICAP PLACARD 5 YEAR Indications: Diastolic congestive heart failure, unspecified HF chronicity (CMS/HCC) , Gout, unspecified cause, unspecified chronicity, unspecified site 5 Units by Other route in the morning. 5 Year Duration for Handicap Placard. 1 Units 4 12/02/2022 Active hydrALAZINE hydrochloride 100 mg oral tablet (20 sources) Arteriolar Vasodilator Start: 11-22-2022 take 1 tablet by mouth three times daily hydrALAZINE (APRESOLINE) 100 mg tablet Take 1 tablet (100 mg total) by mouth 3 (three) times a day. 0 11/22/2022 Active Start: 04-03-2022 take 100 mg by mouth [...] Insulin) 100 unit/mL (3 mL) Insulin Pen (13 sources) Start: 04-03-2022 inject 1 dose by [...] 21, 2022 12:00am 3 ml insulin glargine 300 unt/ml pen injector (19 sources) Insulin Analog Start: 06-15-2023 inject 300 [IU] by subcutaneous injection in the morning TOUJEO MAX U-300 SOLOSTAR 300 unit/mL (3 mL) insulin pen Inject 300 mL under the skin in the morning. 0 06/15/2023 Active Start: 04-03-2022 Insulin Glargi ne (Lantus Solostar U-100 Insulin) 100 unit/mL (3 mL) Insulin Pen Active 40 UNIT SUBCUT Twice daily April 03, 2022 12:00am Start: 03-05-2022 End: 04-03-2022 Insulin Glargine U-300 Conc (Toujeo Max U-300 Solostar) 300 unit/mL (3 mL) Insulin Pen Discontinued 100 UNIT SUBCUT Daily March 05, 2022 12:00am April 03, 2022 8:52am Start: 11-19-2021 Toujeo Max Roxy oStar 300 UNIT/ML injection Indications: Type 2 Diabetes Mellitus Inject 100 Units under the skin in the morning. 0 11/19/2021 Active insulin lispro 100 unt/ml injectable solution (20 sources) Insulin Analog Start: 07-09-2023 insulin lispro (HumaLOG) 100 unit/mL injection Inject 0.25 mL (25 Units total) under the skin in the morning and 0.25 mL (25 Units total) at noon and 0.25 mL (25 Units total) in the evening. Inject before meals. 0 07/09/2023 Active Start: 07-09-2023 Insulin Lispro (HumaLOG) 100 UNIT/ML solution Indications: Type 2 diabetes mellitus with other specified complication, with long-term current use of insulin ([facility]) Inject 25 Units under the skin in the morning and 25 Units at noon and 25 Units in the evening. Inject before meals. 0 07/09/2023 Active Start: 03-05-2022 End: 04-03-2022 inject 25 [IU] by subcutaneous injection once daily Insulin Lispro (Humalog U-100 Insulin) 100 unit/mL Solution Discontinued 25 UNIT SUBCUT Daily March 05, 2022 12:00am April 03, 2022 8:52am HumaLOG 100 UNIT /ML as directed Subcutaneous Once a day in AM Active irbesartan 300 mg oral tablet (6 sources) Angiotensin 2 Receptor Oniel Start: 04-03-2022 [...] 05, 2022 12:00am April 03, 2022 8:52am meloxicam 15 mg oral tablet (20 sources) Nonsteroidal Anti-inflammatory Drug Start: 05-09-2023 take 1 tablet by mouth in the morning meloxicam (MOBIC) 15 mg tablet Take 1 tablet (15 mg total) by mouth in the morning. 0 05/09/2023 Active Start: 03-05-2022 End: 04-03-2022 take 15 mg by mouth once daily Meloxicam Discontinued 15 MG PO Daily March 05, 2022 12:00am April 03, 2022 8:52am metOLazone 2.5 mg oral tablet (20 sources) Thiazide-like Diuretic Start: 03-05-2022 End: 04-03-2022 Metolazone Active 2.5 MG PO MoWeFr@0900 13 April 03, 2022 12:00am miconazole nitrate 20 mg/ml vaginal cream (2 sources) Azole Antifungal Start: 07-07-2023 MICONAZOLE-7 2 % vaginal cream Insert 1 applicator into the vagina nightly. 0 07/07/2023 Active naproxen 500 mg oral tablet (6 sources) Nonsteroidal Anti-inflammatory Drug Start: 04-03-2022 take 500 mg by mouth twice daily Naproxen Active 500 MG PO Twice daily April 03, 2022 12:00am NIFEdipine 30 mg [...] April 03, 2022 8:52am nitroglycerin 0.3 mg subling ual tablet (17 sources) Nitrate Vasodilator nitroglyceri n (Nitrostat) 0.[address] 0.3 mg under the tongue every 5 (five) minutes if needed for chest pain. 0 Active Nitroglycerin 0. 3 MG as directed Sublingual prn Active NovoFine (15 sources) NovoFine Active omeprazole 40 mg delayed release oral capsule (20 sources) Proton Pump Inhibitor Start: take 1 capsule by mouth once daily before breakfast omeprazole (PriLOSEC) 40 mg capsule Take 1 capsule (40 mg total) by mouth every morning before breakfast. 0 04/28/2023 Active Start: 04-03-2022 take 20 mg by mouth once daily Omeprazole Active 20 MG PO Daily April 03, 2022 12:00am Start: 03-05-2022 End: 04-03-2022 take 20 mg by mouth once daily Omeprazole Discontinued 20 MG PO Daily March 05, 2022 12:00am April 03, 2022 8:52am take 1 capsule by cox monett once daily Omeprazole 40 MG 1 capsule [...] Ac tive torsemide 20 mg oral tablet (6 sources) Loop Diuretic Start: 07-09-2023 take 1 tablet by mouth twice daily torsemide (DEMADEX) 20 mg tablet Take 1 tablet (20 mg total) by mouth 2 (two) times a day. 0 07/09/2023 Active Torsemide 20 MG as directed Orally Active TOUJEO SOLOSTAR (15 sources) TOUJEO SOLOSTAR Active Completed/Discontinued Medications Medication Drug Class(es) Dates Sig (Normalized) Sig (Original) aluminum hydroxide 40 mg/ml / magnesium hydroxide 40 mg/ml / simethicone 4 mg/ml oral suspension (7 sources) Start: 03-21-2022 End: 04-03-2022 take 1 mL by mouth every four hours Alum-Mag Hydroxide-Simeth (Mag-Al Plus) 200-200-20 mg/5 mL Suspension Discontinued 30 ML PO Q4H 0 March 21, 2022 12:00am April 03, 2022 8:52am clopidogrel [...] Not-Taking diphenhydrAMINE hydrochloride 25 mg oral capsule (7 sources) Histamine-1 Receptor Antagonist Start: 03-21-2022 End: 04-03-2022 take 25 mg by mouth every six hours Diphenhydramine Hcl Discontinued 25 MG PO Q6H 0 March 21, 2022 12:00am April 03, 2022 8:52am Magnesium Hydroxide (7 sources) Start: 03-21-2022 End: 04-03-2022 take 1 [...] PO Bedtime 0 March 21, 2022 12:00am oxyCODONE hydrochloride 5 mg oral tablet (14 sources) Opioid Agonist Start: 03-21-2022 End: 04-03-2022 [...] 2022 8:52am predniSONE 10 mg oral tablet (7 sources) Start: 03-21-2022 End: 04-03-2022 take 40 [...] Date Documented Date Episodic/Chronic Acute myocardial infarction (12 sources) Myocardial infarction; Translations: [Acute myocardial infarction, unspecified] Onset: 07-02-2023 03-23-2022 Chronic Administrative/social admission (8 sources) Other reduced mobility; Translations: [Impaired mobility and endurance] 03-23-2022 Episodic Congestive heart failure; nonhypertensive (16 sources) Unspecified diastolic (congestive) heart failure; Translations: [Acute on chronic diastolic heart failure] Onset: 05-17-2022 Chronic Coronary atherosclerosis and other heart disease (14 sources) Coronary arteriosclerosis; Translations: [Atherosclerotic heart disease of [place] coronary artery without angina pectoris] Onset: 10-08-2023 03-23-2022 Chronic Diabetes mellitus with complications (6 sources) Skin ulcer due to type 2 diabetes mellitus; Translations: [Type 2 diabetes mellitus with other skin ulcer] Onset: 11-25-2019 Resolved: 04-21-2023 10-28-2022 Chronic Diabetes mellitus without complication (15 sources) Type 2 diabetes mellitus; Translations: [Type 2 diabetes mellitus without complications] Onset: 05-16-2022 03-23-2022 Chronic Disorders of lipid metabolism (16 sources) Hyperlipidemia; Translations: [Hyperlipidemia, unspecified] Onset: 09-20-2020 03-23-2022 Chronic Esophageal disorders (8 sources) Gastroesophageal reflux disease; Translations: [Gastro-esophageal reflux disease without esophagitis] Onset: 10-15-2022 03-23-2022 Chronic Essential hypertension (13 sources) Hypertensive disorder; Translations: [Essential (primary) hypertension] Onset: 05-16-2022 03-23-2022 Chronic Gout and other crystal arthropathies (8 sources) Gout; Translations: [Gout, unspecified] Onset: 10-15-2022 03-23-2022 Chronic Immunity disorders (2 sources) Secondary immune deficiency disorder; Translations: [Immunodeficiency due to conditions classified elsewhere ([facility])] 07-21-2023 Chronic Osteoarthritis (20 sources) Localized, primary osteoarthritis of the pelvic region and thigh; Translations: [Unilateral primary osteoarthritis, left hip] Onset: 10-17-2016 Resolved: 10-15-2021 Chronic Osteoporosis (11 sources) Senile osteoporosis; Translations: [Age-related osteoporosis without current pathological fracture] Onset: 03-08-2020 01-13-2023 Chronic Other acquired deformities (10 sources) Lumbar spondylolisthesis; Translations: [Spondylolisthesis, lumbar region] 10-23-2023 Episodic Other acquired deformities (8 sources) Spondylolisthesis, lumbar region; Translations: [Acquired spondylolisthesis] Onset: 12-06-2021 Resolved: 01-15-2022 Episodic Other and ill-defined cerebrovascular disease (1 source) Other cerebrovascular disease; Translations: [OTHER CEREBROVASCULAR DISEASE] Onset: 05-20-2022 Chronic Other and ill-defined cerebrovascular disease (2 sources) Cerebrovascular disease, unspecified; Translations: [Cerebrovascular disease, unspecified] Onset: 08-19-2022 Chronic Other and ill-defined cerebrovascular disease (2 sources) Other cerebrovascular vasospasm and vasoconstriction; Translations: [Other cerebrovascular vasospasm and vasoconstriction] Onset: 07-02-2023 Chronic Other and ill-defined heart disease (2 sources) Diastolic dysfunction; Translations: [Other ill-defined heart diseases] Onset: 01-13-2023 01-13-2023 Chronic Other circulatory disease (2 sources) Peripheral vascular angioplasty status with implants and grafts; Translations: [Peripheral vascular angioplasty status with implants and grafts] Onset: 10-08-2023 Chronic Other connective tissue disease (1 source) History of lumbar fusion; Translations: [Arthrodesis status] 10-23-2023 Episodic Other connective tissue disease (1 source) Arthrodesis status; Translations: [Arthrodesis status] 10-23-2023 Episodic Other diseases of kidney and ureters (2 sources) Renal mass; Translations: [Other specified disorders of kidney and ureter] Onset: 05-28-2017 01-13-2023 Chronic Other nervous system disorders (15 sources) Chronic pain; Translations: [Other chronic pain] Chronic Other nervous system disorders (5 sources) Other chronic pain Onset: 09-25-2021 Resolved: 12-07-2021 Chronic Other nervous system disorders (9 sources) Cervical myelopathy; Translations: [Disease of spinal cord, unspecified] Chronic Other nervous system disorders (1 source) Disease of spinal cord, unspecified Onset: 12-06-2021 Resolved: 12-06-2021 Chronic Other nervous system disorders (2 sources) Difficulty walking; Translations: [Difficulty in walking, not elsewhere classified] Onset: 04-24-2021 01-13-2023 Chronic Other nervous system disorders (1 source) Bilateral carpal tunnel syndrome; Translations: [Carpal tunnel syndrome, bilateral upper limbs] 08-19-2023 Chronic Other nutritional; endocrine; and metabolic disorders (8 sources) Body mass index 40+ - severely obese; Translations: [Morbid (severe) obesity due to excess calories] 03-23-2022 Chronic Other nutritional; endocrine; and metabolic disorders (2 sources) Morbid (severe) obesity due to excess calories; Translations: [Morbid obesity] 04-03-2022 Chronic Other nutritional; endocrine; and metabolic disorders (2 sources) Obesity caused by energy imbalance; Translations: [Morbid (severe) obesity due to excess calories] 07-21-2023 Chronic Other nutritional; endocrine; and metabolic disorders (2 sources) Morbid obesity; Translations: [Morbid (severe) obesity due to excess calories] Onset: 10-08-2013 01-13-2023 Chronic Residual codes; unclassified (6 sources) Sleep apnea; Translations: [Sleep apnea, unspecified] 03-23-2022 Chronic Residual codes; unclassified (3 sources) Sleep apnea, unspecified; Translations: [Unspecified sleep apnea] Onset: 05-16-2022 04-03-2022 Chronic Residual codes; unclassified (2 sources) Obstructive sleep apnea syndrome; Translations: [Obstructive sleep apnea (adult) (pediatric)] Onset: 10-15-2022 04-21-2023 Chronic Spondylosis; intervertebral disc disorders; other back problems (20 sources) Solitary sacroiliitis; Translations: [Sacroiliitis, not elsewhere classified] Onset: 09-25-2021 Resolved: 01-15-2022 Chronic Transient cerebral ischemia (1 source) Transient cerebral ischemia; Translations: [Transient cerebral ischemic attack, unspecified] 08-19-2023 Chronic Unclassified (1 source) Spondylolisthesis, lumbar region; Translations: [Spondylolisthesis, lumbar region] Onset: 12-12-2022 Unclassified (1 source) Resistant hypertension; Translations: [Resistant hypertension] Onset: 07-16-2023 Viral infection (2 sources) Disease caused by 2019-nCoV; Translations: [COVID-19] 07-21-2023 Episodic Past or Other Problems Problem Classification Problem Date Documented Date Episodic/Chronic Abdominal hernia (2 sources) Umbilical hernia; Translations: [Umbilical hernia without obstruction or gangrene] Onset: 10-15-2022 10-15-2022 Episodic Calculus of urinary tract (2 sources) Kidney stone; Translations: [Calculus of kidney] Onset: 10-15-2022 10-15-2022 Episodic Mood disorders (2 sources) Mood disorders Onset: 08-19-2023 08-19-2023 Neoplasms of unspecified nature or uncertain behavior (2 sources) Neoplasm of uncertain behavior of kidney; Translations: [Neoplasm of uncertain behavior of unspecified kidney] Onset: 10-07-2013 01-13-2023 Episodic Other acquired deformities (2 sources) Acquired spondylolisthesis; Translations: [Spondylolisthesis, site unspecified] Onset: 01-13-2023 01-13-2023 Episodic Other aftercare (1 source) termite exterminator helper (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 of aspirin; Translations: [LICENSED MASSAGE PRACTITIONER CURRENT USE OF ASPIRIN] Onset: 05-16-2022 Episodic Other aftercare (1 source) skilled nursing (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 of insulin; Translations: [LICENSED MASSAGE PRACTITIONER CURRENT USE OF INSULIN] Onset: 05-16-2022 Episodic Other aftercare (1 source) Other equipment operator intermodal yard (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 therapy; Translations: [OTH LICENSED MASSAGE PRACTITIONER CURRENT DRUG THERAPY] Onset: 05-16-2022 Episodic Other aftercare (2 sources) Long-term current use of insulin; Translations: [termite exterminator helper (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 of insulin] Onset: 07-12-2015 01-13-2023 Episodic Other and unspecified benign neoplasm (2 sources) Angiomyolipoma of kidney; Translations: [Benign lipomatous neoplasm of kidney] Onset: 10-15-2022 10-15-2022 Episodic Other connective tissue disease (3 sources) Other specified soft tissue disorders; Translations: [OTHER SPEC SOFT TISSUE DISORDERS] Onset: 05-14-2022 Episodic Other connective tissue disease (1 source) Synovial cyst of popliteal space [Fnich], right knee; Translations: [SYNOVIAL CYST POP SPACE RIGHT KNEE] Onset: 05-16-2022 Episodic Other connective tissue disease (2 sources) H/O: arthritis; Translations: [Personal history of other diseases of the musculoskeletal system and connective tissue] Onset: 10-08-2013 01-13-2023 Episodic Other diseases of veins and lymphatics (2 sources) Peripheral venous insufficiency; Translations: [Venous insufficiency (chronic) (peripheral)] Onset: 01-10-2020 01-13-2023 Episodic Other diseases of veins and lymphatics (2 sources) Venous insufficiency (chronic) (peripheral); Translations: [Venous insufficiency (chronic) (peripheral)] Onset: 08-19-2022 Episodic Other lower respiratory disease (2 sources) Other forms of dyspnea; Translations: [Other forms of dyspnea] Onset: 07-02-2023 Episodic Other nervous system disorders (2 sources) Skin sensation disturbance; Translations: [Unspecified disturbances of skin sensation] Onset: 11-05-2019 01-13-2023 Episodic Other nervous system disorders (2 sources) Paresthesia; Translations: [Paresthesia of skin] Onset: 01-13-2023 01-13-2023 Episodic Other screening for suspected conditions (not mental disorders or infectious disease) (6 sources) Coronary arteriosclerosis excluded; Translations: [Encounter for observation for other suspected diseases and conditions ruled out] Onset: 11-02-2013 10-15-2022 Episodic Residual codes; unclassified (1 source) Asymptomatic menopausal state Onset: 12-06-2021 Resolved: 12-06-2021 Episodic Residual codes; unclassified (2 sources) Localized edema; Translations: [Localized edema] Onset: 10-28-2022 10-28-2022 Episodic Skin and subcutaneous tissue infections (1 source) Cellulitis of right lower limb; Translations: [CELLULITIS OF RIGHT LOWER LIMB] Onset: 05-16-2022 Episodic Spondylosis; intervertebral disc disorders; other back problems (20 sources) Radiculopathy, lumbar region; Translations: [Lumbar radiculopathy] Onset: 10-07-2013 Resolved: 01-15-2022 Episodic Thyroid disorders (2 sources) Disorder of thyroid gland; Translations: [Disorder of thyroid, unspecified] Onset: 10-15-2022 10-15-2022 Episodic Unclassified (1 source) Resistant hypertension; Translations: [Resistant hypertension] Onset: 07-16-2023 Results Test Name Value Interpretation Reference Range Facility XR lumbar spine AP/LAT/FLX/E XTon 10-23-2023 XR lumbar spine AP/LAT/FLX/EXT [facility] [place] [address] XRay Report Signed Patient: Laura Lawson MR#: [id number] : 1950 Acct:[id number] Age/Sex: 72 / F ADM Date: 10/23/23 Loc: XD Room: Type: [facility] Attending Dr: Abner Roa MD Copies to: Abner Roa MD Ordering Provider: Abner Roa MD Date of Service: 10/23/23 XR/XR lumbar spine AP/LAT/FLX/EXT: M43.16 - Spondylolisthesis, lumbar region AP with lateral neutral, flexion and extension views Lumbar Spine HISTORY: Follow-up assessment for lumbar surgery COMPARISON: 03/13/2023 POSTSURGICAL CHANGES: L3 L5 posterior interbody fusion changes. BONY ALIGNMENT: Stable HYPERMOBILITY:No hypermobility LISTHESIS:Mild listhesis redemonstrated FRACTURE: None DEGENERATIVE CHANGES: Similar degenerative change SOFT TISSUES: Unremarkable BONY MINERALIZATION:Adequate XR/XR lumbar spine AP/LAT/FLX/EXT IMPRESSION: No hypermobility. Stable postoperative and degenerative changes. Impression dictated by: Amaury Devlin M.D.10/23/2023 2:34 PM Dictation Location: [place] [address] Transcribed By: [facility] 10/23/23 1434 Dictated By: Amaury Devlin DO 10/23/23 1430 Signed By: 10/23/23 1434 Normal [facility] Office Visiton 10-14-2023 Follow-up visit [id number] Laura Lawson 1950 F Date Provider Department [place] 10/14/2023 166-NIRAJ [facility] Family History Problem Relation Age of Onset JABARI disease Mother Heart attack Father Family Status - Relation Status Age at Mother Father Level of Service:[address]691 [place] OFFICE/OUTPATIENT ESTABLISHED MOD MDM 30 MIN Reason for Visit and Comments: Coronary Artery Disease [187] Congestive Heart Failure [127] Hypertension [800288] Normal [facility] 30on 10-09-2023 30 The patient is Moderately Stable - Low risk of patient condition declining or worsening The patient's goals for the shift include Comfort The clinical goals for the shift include Monitor vital and check cath site for bleeding. Over the shift, the patient did not make progress toward the following goals. Barriers to progression include N/A. Recommendations to address these barriers include N/A. Normal [facility] BASIC METABOLIC PANELon 05 Anion gap [Moles/Vol] 11 mmol/L Normal 7-20 [facility] Comment on above: Performed By: #### L [id number] #### [facility] ([facility]) [address] [place] [address] Calcium [Mass/Vol] 9.7 mg/dL Normal 8.6-10.3 [facility] Comment on above: Performed By: #### L [id number] #### [facility] ([facility]) [address] [place] [address] Chloride [Moles/Vol] 104 mmol/L Normal 98-107 [facility] Comment on above: Performed By: #### L [id number] #### [facility] ([facility]) [address] [place] [address] CO2 [Moles/Vol] 24 mmol/L Normal 21-31 [facility] Comment on above: Performed By: #### L [id number] #### [facility] ([facility]) [address] [place] [address] Creatinine [Mass/Vol] 1.18 mg/dL Normal 0.60-1.20 [facility] Comment on above: Performed By: #### L [id number] #### [facility] ([facility]) [address] [place] [address] GLOMERULAR FILTRATION RATE ML/MIN/1.73 SQ M.PREDICTED 49.7 mL/min/1.73m*2 Low >60.0 [facility] Comment on above: Result Comment: The [facility]???s estimated glomerular filtration rate (eGFR) will no longer include consideration of race in its calculation. The National Kidney Foundation???s eGFR Task Force developed new recommendations for the estimation of the glomerular filtration rate in the [place] They recommend immediate implementation of the new equation refit without the race variable in all laboratories because the calculation does not include race. In addition to not including race in the calculation and reporting, it included diversity in its development, and has acceptable performance characteristics and potential consequences that do not disproportionately affect any one group of individuals. Performed By: #### L [id number] #### [facility] ([facility]) [address] [place] [address] Glucose [Mass/Vol] 231 mg/dL High 70-100 [facility] Comment on above: Performed By: #### L [id number] #### [facility] ([facility]) [address] [place] [address] Potassium [Moles/Vol] 4.2 mmol/L Normal 3.5-5.1 [facility] Comment on above: Performed By: #### L [id number] #### [facility] ([facility]) [address] [place] [address] Sodium [Moles/Vol] 135 mmol/L Low 136-145 [facility] Comment on above: Performed By: #### L [id number] #### [facility] ([facility]) [address] [place] [address] Urea nitrogen [Mass/Vol] 37 mg/dL High 7-25 [facility] Comment on above: Performed By: #### L [id number] #### [facility] ([facility]) [address] [place] [address] UREA NITROGEN/CREATININE (MASS RATIO) IN SER/PLAS 31.4 Normal [facility] Comment on above: Performed By: #### L [id number] #### [facility] ([facility]) [address] [place] [address] CBCon 10-09-2023 Erythrocyte distribution width (RBC) [Ratio] 15.1 % High 11.5-15.0 [facility] Comment on above: Performed By: #### L [id number] ####[facility] ([facility])[address] [place] [address] ERYTHROCYTE MEAN CORPUSCULAR HEMOGLOBIN CONCENTRATION (G/DL) BY AUTOMATED 31.9 g/dL Low 32.0-35.0 [facility] Comment on above: Performed By: #### L [id number] ####[facility] ([facility])[address] [place] [address] Hematocrit (Bld) [Volume fraction] 32.9 % Low 36.0-48.0 [facility] Comment on above: Performed By: #### L [id number] ####[facility] [place] [address] Hemoglobin (Bld) [Mass/Vol] 10.5 g/dL Low 12.0-15.0 [facility] Comment on above: Performed By: #### L [id number] ####[facility] [place] [address] MCH (RBC) [Entitic mass] 32.0 pg Normal 27.0-33.0 [facility] Comment on above: Performed By: #### L [id number] ####[facility] ([facility])[place] [address] MCV (RBC) [Entitic vol] 100.3 fL High 82.0-98.0 [facility] Comment on above: Performed By: #### L [id number] ####[facility] ([facility])[place] [address] PLATELETS (10*3/UL) IN BLOOD AUTOMATED COUNT 259 10*3/uL Normal 150-400 [facility] Comment on above: Performed By: #### L [id number] ####[facility] ([facility])[place] [address] RBC (Bld) [#/Vol] 3.28 10*6/uL Low 3.80-5.00 [facility] Comment on above: Performed By: #### L [id number] ####[facility] ([facility])[place] [address] WBC (Bld) [#/Vol] 13.05 10*3/uL High 4.00-10.60 [facility] Comment on above: Performed By: #### L [id number] ####[facility] ([facility])[place] [address] DSon 10-09-2023 DS --- Attestation signed by Julito Zendejas MD at 10/10/2023 12:27 PM I discussed the patient on the same date of service as the Non-Physician Provider Niraj San NP. Teaching Physician's Revisions: none Admission Admitted 10/08/2023 for Coronary artery disease involving * Discharge Diagnosis Coronary artery disease s/p PCI with RENO placement to LAD x2 and RCA. Discharge Disposition Home or Self Care () Discharge Medications Your medication list CONTINUE taking these medications Instructions Last Dose Given Next Dose Due allopurinol 300 mg tablet Commonly known as: Zyloprim aspirin 81 mg EC tablet atorvastatin 80 mg tablet Commonly known as: Lipitor Take 1 tablet (80 mg) by mouth at bedtime. baclofen 10 mg tablet Commonly known as: Lioresal carvedilol 6.25 mg tablet Commonly known as: Coreg Take 1 tablet (6.25 mg) by mouth in the morning and at bedtime for 189 doses. clopidogrel 75 mg tablet Commonly known as: Plavix Take 1 tablet (75 mg) by mouth in the morning for 30 doses. Do not start before September 11, 2023. dapagliflozin propanediol 10 mg Commonly known as: Farxiga Take 1 tablet (10 mg) by mouth in the morning for 94 doses. Do not start before July 08, 2023. insulin lispro 100 unit/mL injection Commonly known as: HumaLOG meloxicam 15 mg tablet Commonly known as: Mobic nitroglycerin 0.3 mg SL tablet Commonly known as: Nitrostat omeprazole [address] capsule Commonly known as: PriLOSEC potassium chloride CR 20 mEq ER tablet Commonly known as: Klor-Con M20 sacubitril-valsartan 49-51 mg tablet Commonly known as: Entresto Take 1 tablet by mouth in the morning and at bedtime. Replacing candesartan spironolactone 25 mg tablet Commonly known as: Aldactone Take 1 tablet (25 mg) by mouth in the morning for 30 doses. Do not start before September 11, 2023. torsemide 20 mg tablet Commonly known as: Demadex Toujeo Max U-300 SoloStar 300 unit/mL (3 mL) injection Generic drug: insulin glargine Trulicity 1.5 mg/0.5 mL pen injector Generic drug: dulaglutide STOP taking these medications hydrALAZINE 50 mg tablet Commonly known as: Apresoline Activity Resume normal activities gradually over the next week. No excessive stair climbing. No lifting >5lbs for 3 days. Diet Continue on the same type of diet and foods as you were eating before your admission. Eat low salt/sodium. Limit fluids to no more than 2L/day. Allergies Gabapentin and Tramadol Hospital Course Patient is a pleasant 72 y/o F who presented for an elective PCI with Impella. See procedure report below. She tolerated procedure well. She is feeling well today and would like to go home. We reviewed her heart cath procedure. Stressed the importance of DAPT. She states understanding. She had some lower blood pressures this morning. We held her hydralazine. Will have her resume at lower dose tomorrow at 25mg TID. Continue carvedilol, Entresto, Farxiga, lipitor, aldactone. Cardiac cath conclusion 10/08/23 PROCEDURE PHYSICIAN: Julito Zendejas MD . Indications: Laura Lawson is a 72 y.o. female known to have coronary artery disease status post multivessel stenting in 2013. At that time she was deemed not a candidate for coronary artery bypass surgery due to comorbidities. She did well for a long time and in June 2023 she was admitted to the hospital with acute systolic heart failure, elevated troponin and was diuresed. A follow-up echocardiogram showed severely reduced left ventricular systolic function with an ejection fraction around 30%. She was evaluated in cardiology clinic and referred for cardiac catheterization due to the above. This was performed on 09/09/2023 and showed severe calcific multivessel disease. There was heavy calcium in the LAD. Because of that she was evaluated again in cardiology clinic and brought today for high risk intervention to the LAD and RCA. Assistants: Dr Mary Lou Barrios. Dr Bhargav Wagner. Procedure Performed: IVUS assessment of the LAD. Successful balloon angioplasty, rotational atherectomy, shockwave intravascular lithotripsy, and drug eluting stenting of 90% calcific stenosis in the ostial to proximal left anterior descending coronary artery, with reduction of the stenosis to 0% by a Synergy Megatron 3.5 x 28 mm drug eluting stent, post-dilated in the proximal segment and left main to 5.0 mm at high pressures. Successful balloon angioplasty, shockwave intravascular lithotripsy, and drug eluting stenting of 70% calcific stenosis in the mid left anterior descending coronary artery, with reduction of the stenosis to 0% by a Synergy XD 3.0 x 38 mm drug eluting stent, post dilated to 3.5 mm at high pressures. Successful balloon angioplasty and drug eluting stenting of 70% instent (more content not included)... Normal [facility] POCT GLUCOSE METER UNSOLICIT ED RESULTSon 10-09-2023 Glucose [Mass/Vol] 225 mg/dL High 70-105 [facility] Comment on above: Order Comment: Waive d Testing in the ED is performed under the ED CLIA certificate #[id number]. Result Comment: [email or web address] mon Performed By: #### L [id number] #### [facility] ([facility]) [address] [place] [address] Glucose [Mass/Vol] 215 mg/dL High 70-105 [facility] Comment on above: Order Comment: Waive d Testing in the ED is performed under the ED CLIA certificate #[id number]. Result Comment: [email or web address] Performed By: #### L [id number] #### [facility] ([facility]) [address] [place] [address] 30on 10-08-2023 30 The patient is Moderately Stable - Low risk of patient condition declining or worsening The patient's goals for the shift include comfort The clinical goals for the shift include VSS/maintain hemostasis Over the shift, the patient made progress toward the following goals: Problem: Discharge Planning Goal: Discharge to home or other facility with appropriate resources Outcome: Progressing Problem: Pain - Adult Goal: Verbalizes/displays adequate comfort level or baseline comfort level Outcome: Progressing Problem: Safety - Adult Goal: Free from fall injury Outcome: Progressing Problem: Chronic Conditions and Co-morbidities Goal: Patient's chronic conditions and co-morbidity symptoms are monitored and maintained or improved Outcome: Progressing Problem: Heart Failure diagnosis knowledge deficit Goal: Patient will verbalize understanding of how heart failure affects the body Outcome: Progressing Goal: Patient will verbalize understanding of how other conditions affect the heart Outcome: Progressing Problem: Fluid retention/overload Goal: Patient will be able to identify signs and symptoms of fluid retention Outcome: Progressing Problem: Heart failure medication adherence Goal: Consistently take heart failure medication as prescribed Outcome: Progressing Problem: Insufficient exercise regimen Goal: Patient will engage in physical activity safely Outcome: Progressing Problem: Heart failure progression and care needs Goal: Patient will verbalize understanding of heart failure progression Outcome: Progressing Problem: Heart failure maintenance Goal: Patient will not experience any symptoms of shortness of breath or body swelling over the next 3 months Outcome: Progressing Normal [facility] HPon 10-08-2023 HP H&P reviewed. The patient was examined and there are no changes to the H&P. 72-year-old woman with prior history of coronary artery disease status post multivessel intervention in 2013, recently she was evaluated in cardiology clinic with NSTEMI and acute systolic heart failure. An echocardiogram showed significantly reduced systolic function. She had been admitted with decompensated heart failure and elevated troponins. Eventually she underwent cardiac catheterization on 09/09/2023 that showed high-grade calcific stenosis at the ostium of the LAD and high-grade stenoses in the right coronary artery. Given her low ventricular function intervention she understand that she will be at high risk for any kind of intervention. I explained the procedure in detail. I explained to her that we will need to use ventricular support with Impella heart pump during the intervention. I explained the procedure with risks and benefits. [facility] NURSNOTEon 10-08-2023 NURSNOTE Report called to Benigno cabello RN. He denies questions/concerns. [facility] POCT GLUCOSE METER UNSOLICIT ED RESULTSon 10-08-2023 Glucose [Mass/Vol] 208 mg/dL High 70-105 [facility] Comment on above: Order Comment: Waive d Testing in the ED is performed under the ED CLIA certificate #[id number]. Result Comment: [email or web address] Performed By: #### L [id number] #### [facility] ([facility]) [address] [place] [address] Glucose [Mass/Vol] 179 mg/dL High 70-105 [facility] Comment on above: Order Comment: Waive d Testing in the ED is performed under the ED CLIA certificate #[id number]. Result Comment: [email or web address] heath Performed By: #### L [id number] #### [facility] ([facility]) [address] [place] [address] HPon 09-26-2023 HP hydral [place] Cardiology [facility] Subjective Laura Lawson is a 72 y.o. year old female patient being seen for Follow-up (Follow up - heart cath ) Patient Active Problem List Diagnosis Allergic rhinitis Angiomyolipoma of kidney Benign essential hypertension Cerebrovascular disease Chronic foot ulcer ([facility]/HCC) Coronary atherosclerosis Decreased estrogen level Diabetic retinopathy associated with type 2 diabetes mellitus ([facility]) Diaphragmatic hernia Difficulty walking Dyspnea on exertion Generalized osteoarthritis Gout History of arthritis History of hysterectomy Hyperglycemia due to type 2 diabetes mellitus ([facility]/HCC) 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 ([facility]) Low back pain Morbid obesity ([facility]) Neoplasm of uncertain behavior of kidney Obstructive sleep apnea syndrome Osteoarthritis of knee Osteoporosis Peripheral venous insufficiency Polyneuropathy due to type 2 diabetes mellitus ([facility]/HCC) Preoperative evaluation to rule out surgical contraindication Pulmonary function studies abnormal Pure hypercholesterolemia Renal mass Skin sensation disturbance Type 2 diabetes mellitus without complication ([facility]) Umbilical hernia Uric acid nephrolithiasis NSTEMI (non-ST elevated myocardial infarction) ([facility]) Acute exacerbation of CHF (congestive heart failure) ([facility]) COVID-19 Acquired spondylolisthesis Acute on chronic diastolic heart failure ([facility]) Coronary artery disease (CAD) excluded Diastolic dysfunction GERD (gastroesophageal reflux disease) History of carpal tunnel surgery of right wrist Hyperlipidemia Impaired mobility and endurance Localized edema Lumbar radiculopathy Morbid obesity with body mass index (BMI) of 45.0 to 49.9 in adult ([facility]) Paresthesia of skin Primary osteoarthritis of both knees S/P drug eluting coronary stent placement Ulcer of foot due to type 2 diabetes mellitus ([facility]/HCC) Pericardial effusion Acute systolic heart failure ([facility]) CAD in [place] artery Family History Problem Relation Name Age of Onset JABARI disease Mother Heart attack Father Social History Tobacco Use Smoking status: Never Smokeless tobacco: Never Substance Use Topics Alcohol use: Not Currently HPI Laura is seen in follow-up. She is a 72-year-old woman with prior history of coronary artery disease status post multivessel intervention in 2013 at which time she was deemed not a candidate for bypass surgery. She did well for a long time. Recently she was evaluated in cardiology clinic with NSTEMI and acute systolic heart failure. An echocardiogram showed significantly reduced systolic function. She had been admitted with decompensated heart failure and elevated troponins. Eventually she underwent cardiac catheterization on 09/09/2023 that showed high-grade calcific stenosis at the ostium of the LAD and high-grade stenoses in the right coronary artery. She was admitted to the hospital and medications optimized. She was discharged and is seen in follow-up today to plan revascularization of her coronary artery disease. She reports that she has been doing reasonably well. She has been taking medications as prescribed. Her blood pressure has been on the lower side. She denies active chest pain and she uses a walker to assist with ambulation and has mild shortness of breath at the current level of activity. NYHA class II. Review of Systems Cardiovascular: Positive for dyspnea on exertion. All other systems reviewed and are negative. Objective Visit Vitals BP (!) 110/40 (BP Location: Left arm, Patient Position: Sitting, BP Cuff Size: Adult) Pulse 79 Resp 13 Ht 1.575 m (5' 2 ) Wt 102 kg (225 lb) SpO2 96% BMI 41.15 kg/m??? OB Status Postmenopausal Smoking Status Never BSA 2.11 m??? Physical Exam Constitutional: Appearance: She is [...] Comments: Uses a walker to assist with ambulation Skin: General: Skin is warm and dry. Neurological: General: No focal deficit present. Mental Status: She is alert and (more content not included)... Normal [facility] [facility] Office Visiton 09-26-2023 Follow-up visit [id number] JebLaura A 1950 F Date Provider Department Center 09/26/2023 Rosemary-JULITO ZENDEJAS ESTHELA [facility] Family History Problem Relation Age of Onset JABARI disease Mother Heart attack Father Family Status - Relation Status Age at Mother Father Level of Service:7[address]99 [place] OFFICE/OUTPATIENT ESTABLISHED HIGH MDM 40 MIN Reason for Visit and Comments: Follow-up [410767] - Follow up - heart cath Normal [facility] 30on 09-10-2023 30 Daily Case Managemen t Update Multidisciplinary rounds have been completed. Barriers to Discharge: Pending clinical course and improvement in clinical condition. Plan per Cardiology is cardiac catheterization with impella. Discharge plan is home when medically ready; pending clinical course. Diet: Dietary Orders (From admission, onward) Start Ordered 09/10/23 0001 Diet NPO Diet effective midnight Comments: Sips with medications Question: Reason for NPO: Answer: Operation/Procedure 09/09/23 1143 Physician Expected Discharge Date: 09/12/2023 Discharge Delays: PT Six Click Score: 21 OT Six Click Score: PT Recommendations: OT Recommendations: New Consults: Normal [facility] CBC WITH AUTO DIFFERENTIALon 09-10-2023 Basophils (Bld) [#/Vol] 0.05 10*3/uL Normal 0.00-0.20 [facility] Comment on above: Performed By: #### L [id number] #### [facility] ([facility]AKER) [address] [place] [address] Basophils/100 WBC (Bld) 0.6 % Normal 0.0-1.0 [facility] Comment on above: Performed By: #### L [id number] #### [facility] [address] [place] [address] Eosinophils (Bld) [#/Vol] 0.35 10*3/uL Normal 0.00-0.50 [facility] Comment on above: Performed By: #### L [id number] #### [facility] ([facility]) [address] [place] [address] Eosinophils/100 WBC (Bld) 4.0 % Normal 0.0-6.0 [facility] Comment on above: Performed By: #### L [id number] #### [facility] ([facility]) [address] [place] [address] Erythrocyte distribution width (RBC) [Ratio] 15.7 % High 11.5-15.0 [facility] Comment on above: Performed By: #### L [id number] #### [facility] ([facility]) [address] [place] [address] ERYTHROCYTE MEAN CORPUSCULAR HEMOGLOBIN CONCENTRATION (G/DL) BY AUTOMATED 32.6 g/dL Normal 32.0-35.0 [facility] Comment on above: Performed By: #### L [id number] #### [facility] ([facility]) [address] [place] [address] Hematocrit (Bld) [Volume fraction] 38.0 % Normal 36.0-48.0 [facility] Comment on above: Performed By: #### L [id number] #### [facility] ([facility]) [address] [place] [address] Hemoglobin (Bld) [Mass/Vol] 12.4 g/dL Normal 12.0-15.0 [facility] Comment on above: Performed By: #### L [id number] #### [facility] [address] [place] [address] Immature granulocytes (Bld) [#/Vol] 0.02 10*3/uL Normal 0.00-0.20 [facility] Comment on above: Performed By: #### L [id number] #### [facility] ([facility]) [address] [place] [address] Immature granulocytes/100 WBC (Bld) 0.2 % Normal 0.0-1.0 [facility] Comment on above: Performed By: #### L [id number] #### [facility] ([facility]) [address] [place] [address] Lymphocytes (Bld) [#/Vol] 1.93 10*3/uL Normal 1.20-4.00 [facility] Comment on above: Performed By: #### L [id number] #### [facility] ([facility]) [address] [place] [address] Lymphocytes/100 WBC (Bld) 22.0 % Normal 20.0-45.0 [facility] Comment on above: Performed By: #### L [id number] #### [facility] ([facility]) [address] [place] [address] MCH (RBC) [Entitic mass] 30.7 pg Normal 27.0-33.0 [facility] Comment on above: Performed By: #### L [id number] #### [facility] ([facility]) [address] [place] [address] MCV (RBC) [Entitic vol] 94.1 fL Normal 82.0-98.0 [facility] Comment on above: Performed By: #### L [id number] #### [facility] ([facility]) [address] [place] [address] Monocytes (Bld) [#/Vol] 1.04 10*3/uL High 0.10-1.00 [facility] Comment on above: Performed By: #### L [id number] #### [facility] ([facility]) [address] [place] [address] Monocytes/100 WBC (Bld) 11.8 % Normal 5.0-12.0 [facility] Comment on above: Performed By: #### L [id number] #### [facility] ([facility]) [address] [place] [address] Neutrophils (Bld) [#/Vol] 5.40 10*3/uL Normal 1.60-7.60 [facility] Comment on above: Performed By: #### L [id number] #### [facility] ([facility]) [address] [place] [address] Neutrophils/100 WBC (Bld) 61.4 % Normal 40.0-72.0 [facility] Comment on above: Performed By: #### L [id number] #### [facility] ([facility]) [address] [place] [address] NRBC (PER 100 WBCS) BY AUTOMATED COUNT 0.0 % Normal 0 [facility] Comment on above: Performed By: #### L [id number] #### [facility] ([facility]) [address] [place] [address] PLATELETS (10*3/UL) IN BLOOD AUTOMATED COUNT 256 10*3/uL Normal 150-400 [facility] Comment on above: Performed By: #### L [id number] #### [facility] ([facility]) [address] [place] [address] RBC (Bld) [#/Vol] 4.04 10*6/uL Normal 3.80-5.00 [facility] Comment on above: Performed By: #### L [id number] #### [facility] ([facility]) [address] [place] [address] WBC (Bld) [#/Vol] 8.79 10*3/uL Normal 4.00-10.60 [facility] Comment on above: Performed By: #### L [id number] #### [facility] ([facility]) [address] [place] [address] COMPREHENSIVE METABOLIC PANE Agus 09-10-2023 Albumin [Mass/Vol] 3.5 g/dL Normal 3.5-5.7 [facility] Comment on above: Performed By: #### L [id number] #### [facility] ([facility]) [address] [place] [address] ALP [Catalytic activity/Vol] 67 U/L Normal 34-104 [facility] Comment on above: Performed By: #### L [id number] #### [facility] ([facility]) [address] [place] [address] ALT [Catalytic activity/Vol] 12 U/L Normal 7-52 [facility] Comment on above: Performed By: #### L [id number] #### [facility] ([facility]) [address] [place] [address] Anion gap [Moles/Vol] 11 mmol/L Normal 7-20 [facility] Comment on above: Performed By: #### L [id number] #### [facility] ([facility]) [address] [place] [address] AST [Catalytic activity/Vol] 15 U/L Normal 13-39 [facility] Comment on above: Performed By: #### L [id number] #### [facility] ([facility]) [address] [place] [address] Bilirubin [Mass/Vol] 0.6 mg/dL Normal 0.3-1.0 [facility] Comment on above: Performed By: #### L [id number] #### [facility] ([facility]) [address] [place] [address] Calcium [Mass/Vol] 9.5 mg/dL Normal 8.6-10.3 [facility] Comment on above: Performed By: #### L [id number] #### [facility] ([facility]) [address] [place] [address] Chloride [Moles/Vol] 103 mmol/L Normal 98-107 [facility] Comment on above: Performed By: #### L [id number] #### [facility] ([facility]) [address] [place] [address] CO2 [Moles/Vol] 26 mmol/L Normal 21-31 [facility] Comment on above: Performed By: #### L [id number] #### [facility] ([facility]) [address] [place] [address] Creatinine [Mass/Vol] 0.84 mg/dL Normal 0.60-1.20 [facility] Comment on above: Performed By: #### L [id number] #### [facility] ([facility]) [address] [place] [address] GLOMERULAR FILTRATION RATE ML/MIN/1.73 SQ M.PREDICTED 74.7 mL/min/1.73m*2 Normal >60.0 [facility] Comment on above: Result Comment: The [facility]???s estimated glomerular filtration rate (eGFR) will no longer include consideration of race in its calculation. The National Kid[employer] Foundation???s eGFR Task Force developed new recommendations for the estimation of the glomerular filtration rate in the [place] They recommend immediate implementation of the new equation refit without the race variable in all laboratories because the calculation does not include race. In addition to not including race in the calculation and reporting, it included diversity in its development, and has acceptable performance characteristics and potential consequences that do not disproportionately affect any one group of individuals. Performed By: #### L [id number] #### [facility] ([facility]) [address] [place] [address] Glucose [Mass/Vol] 148 mg/dL High 70-100 [facility] Comment on above: Performed By: #### L [id number] #### [facility] ([facility]) [address] [place] [address] Potassium [Moles/Vol] 4.1 mmol/L Normal 3.5-5.1 [facility] Comment on above: Performed By: #### L [id number] #### [facility] ([facility]) [address] [place] [address] Protein [Mass/Vol] 5.8 g/dL Low 6.0-8.3 [facility] Comment on above: Performed By: #### L [id number] #### [facility] ([facility]) [address] [place] [address] Sodium [Moles/Vol] 136 mmol/L Normal 136-145 [facility] Comment on above: Performed By: #### L [id number] #### [facility] ([facility]ER) [address] [place] [address] Urea nitrogen [Mass/Vol] 27 mg/dL High 7-25 [facility] Comment on above: Performed By: #### L [id number] #### [facility] ([facility]ER) [address] [place] [address] UREA NITROGEN/CREATININE (MASS RATIO) IN SER/PLAS 32.1 Normal [facility] Comment on above: Performed By: #### L [id number] #### [facility] ([facility]ER) [address] [place] [address] HEMOGLOBIN A1Con 09-10-2023 Glucose [Mass/Vol] 252 mg/dL Normal [facility] Comment on above: Performed By: #### L [id number] #### [facility] (BEAKER) [address] [place] [address] HbA1c (Bld) [Mass fraction] 10.4 % High 4.0-6.0 [facility] Comment on above: Performed By: #### L [id number] #### [facility] (BEAKER) [address] [place] [address] LIPID PANELon 09-10-2023 CHOL/HDL 2.8 mg/dL Normal [facility] Comment on above: Performed By: #### L [id number] #### [facility] ([facility]) [address] [place] [address] Cholesterol [Mass/Vol] 148 mg/dL Normal 120-200 [facility] Comment on above: Performed By: #### L [id number] #### [facility] ([facility]) [address] [place] [address] Magnesium [Mass/Vol] 89 mg/dL Normal 40-149 [facility] Comment on above: Result Comment: TRIG LYCERIDE REFERENCE RANGE: 20 YEARS AND OLDER CARDIOVASCULAR RISK LESS THAN 150 mg/dL LOW RISK 150 TO 199 mg/dL BORDERLINE RISK 200 mg/dL AND GREATER HIGH RISK Performed By: #### L [id number] #### [facility] ([facility]) [address] [place] [address] Magnesium [Mass/Vol] 77 mg/dL Normal 0-160 [facility] Comment on above: Performed By: #### L [id number] #### [facility] ([facility]) [address] [place] [address] Magnesium [Mass/Vol] 53 mg/dL Normal 23-92 [facility] Comment on above: Performed By: #### L [id number] #### [facility] ([facility]) [address] [place] [address] NON HDL CHOL. (LDL+VLDL) 95 Normal [facility] Comment on above: Performed By: #### L [id number] #### [facility] ([facility]) [address] [place] [address] TOTAL VLDL-C 18 mg/dL Normal 0-40 [facility] Comment on above: Performed By: #### L [id number] #### [facility] ([facility]) [address] [place] [address] MAGNESIUMon 09-10-2023 Magnesium [Mass/Vol] 2.1 mg/dL Normal 1.9-2.7 [facility] Comment on above: Performed By: #### L [id number] #### [facility] ([facility]) [address] [place] [address] NURSNOTEon 09-10-2023 NURSMIKALA LIVE reviewed and discussed with the patient. The patient has no further questions or concerns at this time. EDS has delivered two medications to the room. The patient has notified her friend of needing a ride home ETA 1900. Normal [facility] POCT GLUCOSE METER UNSOLICIT ED RESULTSon 09-10-2023 Glucose [Mass/Vol] 156 mg/dL High 70-105 [facility] Comment on above: Order Comment: Waive d Testing in the ED is performed under the ED CLIA certificate #[id number]. Result Comment: mhil l58 Performed By: #### L [id number] #### [facility] (BEAKER) [address] [place] [address] Glucose [Mass/Vol] 141 mg/dL High 70-105 [facility] Comment on above: Order Comment: Waive d Testing in the ED is performed under the ED CLIA certificate #[id number]. Result Comment: mhil l58 Performed By: #### L [id number] #### [facility] ([facility]) [address] [place] [address] 30on 09-09-2023 30 The patient is Moderately Stable - Low risk of patient condition declining or worsening The patient's goals for the shift include sleep The clinical goals for the shift include NPOat 0000 Over the shift, the patient made progress toward the following goals: Problem: Pain - Adult Goal: Verbalizes/displays adequate comfort level or baseline comfort level Outcome: Progressing Problem: Safety - Adult Goal: Free from fall injury Outcome: Progressing Problem: Discharge Planning Goal: Discharge to home or other facility with appropriate resources Outcome: Progressing Problem: Chronic Conditions and Co-morbidities Goal: Patient's chronic conditions and co-morbidity symptoms are monitored and maintained or improved Outcome: Progressing Problem: Neurosensory - Adult Goal: Achieves stable or improved neurological status Outcome: Progressing Goal: Achieves maximal functionality and self care Outcome: Progressing Problem: Respiratory - Adult Goal: Achieves optimal ventilation and oxygenation Outcome: Progressing Problem: Cardiovascular - Adult Goal: Maintains optimal cardiac output and hemodynamic stability Outcome: Progressing Goal: Absence of cardiac dysrhythmias or at baseline Outcome: Progressing Problem: Skin/Tissue Integrity - Adult Goal: Skin integrity remains intact Outcome: Progressing Goal: Incisions, wounds, or drain sites healing without S/S of infection Outcome: Progressing Goal: Oral mucous membranes remain intact Outcome: Progressing Problem: Gastrointestinal - Adult Goal: Minimal or absence of nausea and vomiting Outcome: Progressing Goal: Maintains or returns to baseline bowel function Outcome: Progressing Goal: Maintains adequate nutritional intake Outcome: Progressing Problem: Infection - Adult Goal: Absence of infection at discharge Outcome: Progressing Goal: Absence of infection during hospitalization Outcome: Progressing Problem: Metabolic/Fluid and Electrolytes - Adult Goal: Electrolytes maintained within normal limits Outcome: Progressing Goal: Hemodynamic stability and optimal renal function maintained Outcome: Progressing Problem: Hematologic - Adult Goal: Maintains hematologic stability Outcome: Progressing Problem: Heart Failure diagnosis knowledge deficit Goal: Patient will verbalize understanding of how heart failure affects the body Outcome: Progressing Goal: Patient will verbalize understanding of how other conditions affect the heart Outcome: Progressing Problem: Fluid retention/overload Goal: Patient will be able to identify signs and symptoms of fluid retention Outcome: Progressing Problem: Heart failure medication adherence Goal: Consistently take heart failure medication as prescribed Outcome: Progressing Problem: Insufficient exercise regimen Goal: Patient will engage in physical activity safely Outcome: Progressing Problem: Heart failure progression and care needs Goal: Patient will verbalize understanding of heart failure progression Outcome: Progressing Problem: Heart failure maintenance Goal: Patient will not experience any symptoms of shortness of breath or body swelling over the next 3 months Outcome: Progressing Problem: Musculoskeletal - Adult Goal: Return mobility to safest level of function Outcome: Adequate for Discharge Goal: Maintain proper alignment of affected body part Outcome: Adequate for Discharge Goal: Return ADL status to a safe level of function Outcome: Adequate for Discharge Problem: Genitourinary - Adult Goal: Absence of urinary retention Outcome: Adequate for Discharge Problem: Metabolic/Fluid and Electrolytes - Adult Goal: Glucose maintained within prescribed range Outcome: Adequate for Discharge Normal [facility] 30 The patient is Moderately Stable - Low risk of patient condition declining or worsening The patient's goals for the shift include Comfort The clinical goals for the shift include comfort Normal [facility] CONSULTon 09-09-2023 CONSULT --- Attestation signed by Bhargav Wagner MD at 09/11/2023 7:54 PM I personally saw and examined the patient on the same date of service as resident/fellow Dr. Wilson. I discussed the findings and therapeutic plan with the resident/fellow . I agree with the documentation, except for any edits/updates below. Teaching Physician's Revisions: none Cardiology Consult Note Reason for Consult: Need for PCI HPI: Laura Lawson is a 72 y.o. female with past medical history of heart failure with reduced ejection fraction, EF 35%, history of CAD, sleep apnea, hypertension, gout, who came as a direct admission after coronary angiography showed calcified nodule in the ostium of LAD causing severe stenosis along with severe triple-vessel disease. Patient has been short of breath since June 2023 when she was admitted for slow heart failure. Her filling pressures are normal on the right heart cath. Plan for PCI tomorrow. Cardiology ROS: Negative except as mentioned. Past Medical History She has a past medical history of Abnormal ECG, CHF (congestive heart failure) (CMS/HCC), Coronary artery disease, Diabetes mellitus (CMS/HCC), Gout, Hypertension, Myocardial infarction (CMS/HCC), and Sleep apnea. Surgical History She has a past surgical history that includes Cardiac catheterization; Carpal tunnel release; Hysterectomy; Thyroid surgery; and Back surgery. Social History She reports that she has never smoked. She has never used smokeless tobacco. She reports that she does not currently use alcohol. No history on file for drug use. Family History Family History Problem Relation Name Age of Onset JABARI disease Mother Heart attack Father Allergies Patient has no known allergies. Medications Current Outpatient Medications Medication Instructions allopurinol (ZYLOPRIM) 300 mg, oral, Daily aspirin 81 mg, oral, Daily atorvastatin (LIPITOR) 80 mg, oral, Nightly baclofen (LIORESAL) 10 mg, oral, Nightly carvedilol (COREG) 6.25 mg, oral, 2 times daily dapagliflozin propanediol (FARXIGA) 10 mg, oral, Daily hydrALAZINE (APRESOLINE) 100 mg, oral, 3 times daily insulin lispro (HumaLOG) 100 unit/mL injection Patient reports taking three times daily 15 minutes before meals. Reports taking 25 units of Humalog to decrease glucose reading by 100 meloxicam (MOBIC) 15 mg, oral, Daily nitroglycerin (Nitrostat) 0.3 mg SL tablet nitroglycerin 0.3 mg sublingual tablet omeprazole (PriLOSEC) [address] capsule No dose, route, or frequency recorded. potassium chloride CR (Klor-Con M20) 20 mEq ER tablet Every 12 hours sacubitril-valsartan (Entresto) 49-51 mg tablet 1 tablet, oral, 2 times daily, Replacing candesartan torsemide (DEMADEX) 20 mg, oral, 2 times daily RT Toujeo Max U-300 SoloStar 100 Units, subcutaneous, Daily Trulicity 1.5 mg, subcutaneous, Weekly Medications Prior to Admission Medication Sig Dispense Refill Last Dose allopurinol (Zyloprim) 300 mg tablet Take 300 mg by mouth in the morning. 09/09/2023 aspirin 81 mg EC tablet Take 81 mg by mouth in the morning. 09/09/2023 atorvastatin (Lipitor) 80 mg tablet Take 1 tablet (80 mg) by mouth at bedtime. 90 tablet 3 09/08/2023 baclofen (Lioresal) 10 mg tablet Take 10 mg by mouth at bedtime. 09/08/2023 carvedilol (Coreg) 6.25 mg tablet Take 1 tablet (6.25 mg) by mouth in the morning and at bedtime for 189 doses. 60 tablet 3 09/09/2023 dapagliflozin propanediol (Farxiga) 10 mg Take 1 tablet (10 mg) by mouth in the morning for 94 doses. Do not start before July 08, 2023. 30 tablet 3 09/08/2023 hydrALAZINE (Apresoline) 100 mg tablet Take 100 mg by mouth in the morning, at noon, and at bedtime. 09/09/2023 insulin lispro (HumaLOG) 100 unit/mL injection Patient reports taking three times daily 15 minutes before meals. Reports taking 25 units of Humalog to decrease glucose reading by 100 09/08/2023 meloxicam (Mobic) 15 mg tablet Take 15 mg by mouth in the morning. 09/09/2023 omeprazole (PriLOSEC) [address] capsule 09/09/2023 potassium chloride CR (Klor-Con M20) 20 mEq ER tablet every 12 (twelve) hours. 09/09/2023 sacubitril-valsartan (Entresto) 49-51 mg tablet Take 1 tablet by mouth in the morning and at bedtime. Replacing candesartan 180 tablet 1 09/09/2023 torsemide (Demadex) 20 mg tablet Take 20 mg by mouth in the morning and at bedtime. 09/09/2023 Toujeo Max U-300 SoloStar 300 unit/mL (3 mL) injection Inject 100 Units under the skin in the morning. 09/08/2023 Trulicity 1.5 mg/0.5 mL pen injector Inject 1.5 mg under the skin 1 (one) time per week. 09/08/2023 nitroglycerin (Nitrostat) 0.3 mg SL tablet nitroglycerin 0.3 mg sublingual tablet More than a month Last Recorded Vitals Patient Vitals for the past 24 hrs: BP Temp Temp src Pulse Resp SpO2 Height Weight 09/09/23 1730 139/62 36.7 ???C (9 (more content not included)... Normal [facility] HPon 09-09-2023 History Of Present Illness Laura Lawson is a 72 y.o. female presenting for coronary angiogram for newly diagnosed HFrEF. PMHx: resistant HTN, HFpEF, DM II, KJ Denies c/o CP, dyspnea, orthopnea, PND, LE edema, dizziness/LH, palpitations, syncope. She denies c/o headaches, slurred speech, weakness, vision changes, etc. Past Medical History She has a past medical history of Abnormal ECG, CHF (congestive heart failure) (CMS/HCC), Coronary artery disease, Diabetes mellitus (CMS/HCC), Gout, Hypertension, Myocardial infarction (CMS/HCC), and Sleep apnea. Surgical History She has a past surgical history that includes Cardiac catheterization; Carpal tunnel release; Hysterectomy; Thyroid surgery; and Back surgery. Social History She reports that she has never smoked. She has never used smokeless tobacco. She reports that she does not currently use alcohol. No history on file for drug use. Allergies Patient has no known allergies. Medications Medications Prior to Admission Medication Sig Dispense Refill Last Dose allopurinol (Zyloprim) 300 mg tablet Take 300 mg by mouth in the morning. 09/09/2023 aspirin 81 mg EC tablet Take 81 mg by mouth in the morning. 09/09/2023 atorvastatin (Lipitor) 80 mg tablet Take 1 tablet (80 mg) by mouth at bedtime. 90 tablet 3 09/08/2023 baclofen (Lioresal) 10 mg tablet Take 10 mg by mouth at bedtime. 09/08/2023 carvedilol (Coreg) 6.25 mg tablet Take 1 tablet (6.25 mg) by mouth in the morning and at bedtime for 189 doses. 60 tablet 3 09/09/2023 dapagliflozin propanediol (Farxiga) 10 mg Take 1 tablet (10 mg) by mouth in the morning for 94 doses. Do not start before July 08, 2023. 30 tablet 3 09/08/2023 hydrALAZINE (Apresoline) 100 mg tablet Take 100 mg by mouth in the morning, at noon, and at bedtime. 09/09/2023 insulin lispro (HumaLOG) 100 unit/mL injection Patient reports taking three times daily 15 minutes before meals. Reports taking 25 units of Humalog to decrease glucose reading by 100 09/08/2023 meloxicam (Mobic) 15 mg tablet Take 15 mg by mouth in the morning. 09/09/2023 omeprazole (PriLOSEC) [address] capsule 09/09/2023 potassium chloride CR (Klor-Con M20) 20 mEq ER tablet every 12 (twelve) hours. 09/09/2023 sacubitril-valsartan (Entresto) 49-51 mg tablet Take 1 tablet by mouth in the morning and at bedtime. Replacing candesartan 180 tablet 1 09/09/2023 torsemide (Demadex) 20 mg tablet Take 20 mg by mouth in the morning and at bedtime. 09/09/2023 Toujeo Max U-300 SoloStar 300 unit/mL (3 mL) injection Inject 100 Units under the skin in the morning. 09/08/2023 Trulicity 1.5 mg/0.5 mL pen injector Inject 1.5 mg under the skin 1 (one) time per week. 09/08/2023 nitroglycerin (Nitrostat) 0.3 mg SL tablet nitroglycerin 0.3 mg sublingual tablet More than a month Review of Systems Physical Exam Cardiovascular: Rate and Rhythm: Normal rate. Pulses: Normal pulses. Pulmonary: Effort: Pulmonary effort is normal. No respiratory distress. Breath sounds: Normal breath sounds. Neurological: Mental Status: She is alert. Constitutional: Appearance: She is well-developed. She is [...] Tenderness: There is no abdominal tenderness. Musculoskeletal: Cervical back: Neck supple. Right lower leg: Edema present. Left lower leg: Edema present. Comments: +1 BLE edema Skin: General: Skin is warm and dry. Neurological: General: No focal deficit present. Mental Status: She is alert and oriented to person, place, and time. Psychiatric: Mood and Affect: Mood normal. Behavior: Behavior is cooperative. Judgment: Judgment normal Last Recorded Vitals Blood pressure 155/63, pulse 61, resp. rate 20, height 1.575 m (5' 2 ), weight 102 kg (225 lb), SpO2 99 %. Relevant Results 02/02/2003 Cardiac cath with PCI Assessment/Plan Principal Problem: Acute systolic heart failure (CMS/HCC) Acute systolic heart failure. Coronary artery disease involving [place] coronary artery of [place] heart without angina pectoris status post stent x 4, last PCI 2013 Mixed hyperlipidemia. Resistant hypertension. Cerebrovascular disease. Type 2 diabetes mellitus. Given her acute systolic heart failure, will be proceeding with a coronary angiogram (more content not included)... Normal [facility] NURSNOTEon 09-09-2023 NURSNOTE Report given to Niels quintana RN from Roselia ARGUETA Any medications or safety alerts were reviewed. Any pending diagnostics and notifications were also reviewed, as well as any safety concerns or issues, abnormal labs, abnormal imagining, and abnormal assessment findings. Questions were answered. Normal [facility] POCT GLUCOSE METER UNSOLICIT ED RESULTSon 09-09-2023 Glucose [Mass/Vol] 163 mg/dL High 70-105 [facility] Comment on above: Order Comment: Waive d Testing in the ED is performed under the ED CLIA certificate #[id number]. Result Comment: [email or web address] Performed By: #### L [id number] #### [facility] ([facility]) [address] [place] [address] Glucose [Mass/Vol] 228 mg/dL High 70-105 [facility] Comment on above: Order Comment: Waive d Testing in the ED is performed under the ED CLIA certificate #[id number]. Result Comment: [email or web address] Performed By: #### L [id number] #### [facility] ([facility]) [address] [place] [address] 36on 08-28-2023 36 Reviewed their note. Lets proceed with a cardiac cath please for assessment of her acute systolic heart failure. They also recommended a LOOP recorder. Can we see if this can be done the same day? If not, will plan for cath first. Thanks! [facility] Orders Onlyon 08-28-2023 Orders Only [id number] Laura Lawson 1950 F Date Provider Department Center 08/28/2023 Cindy-MATTHEW REDMOND [facility] Family History Problem Relation Age of Onset JABARI disease Mother Heart attack Father Family Status - Relation Status Age at Mother Father [facility] 36on 08-21-2023 36 Any updates after he r neuro appt? [facility] 36on 08-18-2023 36 Regarding echo performed on 08/14/2023: Niraj San, SHANDRA Redmond MA Please let her know her labs show normal kidney function and blood counts. Her ECHO shows her the fluid around her heart has improved, only a small amount. Awaiting to hear from her neurology appt on 08/18 if okay to proceed with cardiac cath. Thanks! LM on patient's VM. [facility] Telephoneon 08-18-2023 Telephone [id number] Laura Lawson 1950 F Date Provider Department Center 08/18/2023 NIRAJ COOPER Family History Problem Relation Age of Onset JABARI disease Mother Heart attack Father Family Status - Relation Status Age at Mother Father [facility] 37on 07-31-2023 37 *Your recent heart ultrasound showed you have new heart failure, your pumping function is low at 30%. You will need a heart cath to take a look at your blood vessels to see if there is any significant narrowing contributing to this. *We will need clearance from neurology before proceeding with the heart cath given your recent possible stroke. *Your heart ultrasound also showed a pericardial effusion which is fluid around the heart. We will keep close eye on this. Follow-up heart ultrasound in 2 weeks. Report to the ER if chest pain or worsening SOB develops. *Switch candesartan to Entresto *Increase your atrovastatin to 80mg daily *Follow-up after heart cath procedure [facility] Office Visiton 07-31-2023 Follow-up visit [id number] Laura Lawson 1950 F Date Provider Department Center 07/31/2023 NIRAJ COOPER Family History Problem Relation Age of Onset JABARI disease Mother Heart attack Father Family Status - Relation Status Age at Mother Father Level of Service:03421 [place] OFFICE/OUTPATIENT ESTABLISHED HIGH MDM 40 MIN Reason for Visit and Comments: Congestive Heart Failure [127] Hypertension [904413] [facility] 36on 07-24-2023 36 Regarding echo performed on 07/23/2023: SHANDRA Henderson MA Can we find out when she will be seeing neurology? We need clearance from them to proceed with a heart cath for acute systolic heart failure given her recent stroke. Thank you! Spoke with patient and she has a neurology apt on 08/18. She is scheduled to see you next week, 07/31. [facility] 36 Patient has acute systolic heart failure and she will need a cardiac cath. Can we please find out when she will be seeing neurology as we will need clearance from them before proceeding. Thank you! Normal [facility] Telephoneon 07-24-2023 Telephone [id number] Laura Lawson 1950 Provider Department Center 07/24/2023 NIRAJ COOPER [facility] Family History Problem Relation Age of Onset JABARI disease Mother Heart attack Father Family Status - Relation Status Age at Mother Father Normal [facility] Office Visiton 07-16-2023 Follow-up visit [id number] Laura Lawson A 1950 Provider Department Center 07/16/2023 NIRAJ COOPER [facility]HE[facility] Family History Problem Relation Age of Onset JABARI disease Mother Heart attack Father Family Status - Relation Status Age at Mother Father Level of Service:42631 [place] OFFICE/OUTPATIENT ESTABLISHED MOD MDM 30 MIN Reason for Visit and Comments: Hypertension [379562] Normal [facility] 36on 07-08-2023 36 DC on 07/07/2022 Spoke to pts caregiver Latrice Piña reconciled with caregiver Pt is going to try to get follow up in next 7 days in [place] and will call to cancel her appt with [facility] cardiology. Will leave appt in place until pt confirms [facility] Documentationon 07-08-2023 Documentation [id number] Laura Lawson 1950 Provider Department Center 07/08/2023 [id number] BASS C [facility] Family History Problem Relation Age of Onset JABARI disease Mother Heart attack Father Family Status - Relation Status Age at Mother Father Reason for Visit and Comments: HF inpatient satisfaction survey sent. [Other] Normal [facility] Telephoneon 07-08-2023 Telephone [id number] Laura Lawson 1950 Provider Department Center 07/08/2023 Patrick6-FRANK BOGGS [facility] Family History Problem Relation Age of Onset JABARI disease Mother Heart attack Father Family Status - Relation Status Age at Mother Father Reason for Visit and Comments: hospital DC follow up call [Other] [facility] 30on 07-07-2023 30 The patient is Moderately Stable - Low risk of patient condition declining or worsening The patient's goals for the shift include comfort The clinical goals for the shift include VSS Over the shift, the patient did make progress toward the following goals. Due to patient being covid+ and needing to stay in isolation until 07/14 due to policy, neurology stated patient can do the echo outpatient and follow up in 4-6 weeks. Problem: Cardiovascular - Adult Goal: Maintains optimal cardiac output and hemodynamic stability Outcome: Progressing Flowsheets (Taken 07/07/2023 1044) Maintains optimal cardiac output and hemodynamic stability: Monitor blood pressure and heart rate Monitor urine output and notify Licensed Independent Practitioner for values outside of normal range Assess for signs of decreased cardiac output Problem: Cardiovascular - Adult Goal: Absence of cardiac dysrhythmias or at baseline Outcome: Progressing Flowsheets (Taken 07/07/2023 1044) Absence of cardiac dysrhythmias or at baseline: Monitor cardiac rate and rhythm Assess for signs of decreased cardiac output Administer antiarrhythmia medication and electrolyte replacement as ordered Problem: Respiratory - Adult Goal: Achieves optimal ventilation and oxygenation Outcome: Progressing Flowsheets (Taken 07/06/2023 1424) Achieves optimal ventilation and oxygenation: Assess for changes in respiratory status Assess for changes in mentation and behavior Position to facilitate oxygenation and minimize respiratory effort Respiratory therapy support as indicated Assess and instruct to report shortness of breath or any respiratory difficulty Oxygen supplementation based on oxygen saturation or arterial blood gases Normal [facility] POCT GLUCOSE METER UNSOLICIT ED RESULTSon 07-07-2023 Glucose [Mass/Vol] 213 mg/dL High 70-105 [facility] Comment on above: Order Comment: Waive d Testing in the ED is performed under the ED CLIA certificate #[id number]. Result Comment: [email or web address] Performed By: #### L [id number] #### [facility] ([facility]) [address] [place] [address] Glucose [Mass/Vol] 91 mg/dL Normal 70-105 [facility] Comment on above: Order Comment: Waive d Testing in the ED is performed under the ED CLIA certificate #[id number]. Result Comment: [email or web address] Performed By: #### L [id number] ####[facility] ([facility])[address] [place] [address] 30on 07-06-2023 30 The patient is Moderately Stable - Low risk of patient condition declining or worsening The patient's goals for the shift include comfort The clinical goals for the shift include VSS Over the shift, the patient made progress toward the following goals: Problem: Safety - Adult Goal: Free from fall injury Outcome: Progressing Problem: Discharge Planning Goal: Discharge to home or other facility with appropriate resources Outcome: Progressing Problem: Chronic Conditions and Co-morbidities Goal: Patient's chronic conditions and co-morbidity symptoms are monitored and maintained or improved Outcome: Progressing Problem: Heart Failure diagnosis knowledge deficit Goal: Patient will verbalize understanding of how heart failure affects the body Outcome: Progressing Goal: Patient will verbalize understanding of how other conditions affect the heart Outcome: Progressing Problem: Fluid retention/overload Goal: Patient will be able to identify signs and symptoms of fluid retention Outcome: Progressing Problem: Heart failure medication adherence Goal: Consistently take heart failure medication as prescribed Outcome: Progressing Problem: Insufficient exercise regimen Goal: Patient will engage in physical activity safely Outcome: Progressing Problem: Heart failure progression and care needs Goal: Patient will verbalize understanding of heart failure progression Outcome: Progressing Problem: Heart failure maintenance Goal: Patient will not experience any symptoms of shortness of breath or body swelling over the next 3 months Outcome: Progressing Problem: Respiratory - Adult Goal: Achieves optimal ventilation and oxygenation Outcome: Progressing Problem: Cardiovascular - Adult Goal: Maintains optimal cardiac output and hemodynamic stability Outcome: Progressing Goal: Absence of cardiac dysrhythmias or at baseline Outcome: Progressing Problem: Skin/Tissue Integrity - Adult Goal: Skin integrity remains intact Outcome: Progressing Goal: Incisions, wounds, or drain sites healing without S/S of infection Outcome: Progressing Problem: Musculoskeletal - Adult Goal: Return mobility to safest level of function Outcome: Progressing Problem: Pain - Adult Goal: Verbalizes/displays adequate comfort level or baseline comfort level Outcome: Adequate for Discharge Normal [facility] 30 The patient is Moderately Stable - Low risk of patient condition declining or worsening The patient's goals for the shift include comfort The clinical goals for the shift include VSS, control blood sugar Over the shift, the patient did make progress toward the following goals. Problem: Respiratory - Adult Goal: Achieves optimal ventilation and oxygenation Outcome: Progressing Flowsheets (Taken 07/06/2023 1424) Achieves optimal ventilation and oxygenation: Assess for changes in respiratory status Assess for changes in mentation and behavior Position to facilitate oxygenation and minimize respiratory effort Respiratory therapy support as indicated Assess and instruct to report shortness of breath or any respiratory difficulty Oxygen supplementation based on oxygen saturation or arterial blood gases Normal [facility] 30 The patient is Moderately Stable - Low risk of patient condition declining or worsening The patient's goals for the shift include comfort The clinical goals for the shift include vss Over the shift, the patient made progress toward the following goals: Problem: Pain - Adult Goal: Verbalizes/displays adequate comfort level or baseline comfort level Outcome: Progressing Problem: Safety - Adult Goal: Free from fall injury Outcome: Progressing Problem: Discharge Planning Goal: Discharge to home or other facility with appropriate resources Outcome: Progressing Problem: Chronic Conditions and Co-morbidities Goal: Patient's chronic conditions and co-morbidity symptoms are monitored and maintained or improved Outcome: Progressing Problem: Heart Failure diagnosis knowledge deficit Goal: Patient will verbalize understanding of how heart failure affects the body Outcome: Progressing Goal: Patient will verbalize understanding of how other conditions affect the heart Outcome: Progressing Problem: Fluid retention/overload Goal: Patient will be able to identify signs and symptoms of fluid retention Outcome: Progressing Problem: Heart failure medication adherence Goal: Consistently take heart failure medication as prescribed Outcome: Progressing Problem: Insufficient exercise regimen Goal: Patient will engage in physical activity safely Outcome: Progressing Problem: Heart failure progression and care needs Goal: Patient will verbalize understanding of heart failure progression Outcome: Progressing Problem: Heart failure maintenance Goal: Patient will not experience any symptoms of shortness of breath or body swelling over the next 3 months Outcome: Progressing Problem: Respiratory - Adult Goal: Achieves optimal ventilation and oxygenation Outcome: Progressing Problem: Cardiovascular - Adult Goal: Maintains optimal cardiac output and hemodynamic stability Outcome: Progressing Goal: Absence of cardiac dysrhythmias or at baseline Outcome: Progressing Problem: Skin/Tissue Integrity - Adult Goal: Skin integrity remains intact Outcome: Progressing Goal: Incisions, wounds, or drain sites healing without S/S of infection Outcome: Progressing Problem: Musculoskeletal - Adult Goal: Return mobility to safest level of function Outcome: Progressing Normal [facility] BASIC METABOLIC PANELon 06-10 Anion gap [Moles/Vol] 8 mmol/L Normal 7-20 [facility] Comment on above: Performed By: #### L [id number] #### [facility] ([facility]) [address] [place] [address] Calcium [Mass/Vol] 8.9 mg/dL Normal 8.6-10.3 [facility] Comment on above: Performed By: #### L [id number] #### [facility] ([facility]) [address] [place] [address] Chloride [Moles/Vol] 101 mmol/L Normal 98-107 [facility] Comment on above: Performed By: #### L [id number] #### [facility] ([facility]) [address] [place] [address] CO2 [Moles/Vol] 28 mmol/L Normal 21-31 [facility] Comment on above: Performed By: #### L [id number] #### [facility] ([facility]) [address] [place] [address] Creatinine [Mass/Vol] 0.95 mg/dL Normal 0.60-1.20 [facility] Comment on above: Performed By: #### L [id number] #### [facility] ([facility]) [address] [place] [address] GLOMERULAR FILTRATION RATE ML/MIN/1.73 SQ M.PREDICTED 64.5 mL/min/1.73m*2 Normal >60.0 [facility] Comment on above: Result Comment: The [facility]???s estimated glomerular filtration rate (eGFR) will no longer include consideration of race in its calculation. The National Kid[employer] Foundation???s eGFR Task Force developed new recommendations for the estimation of the glomerular filtration rate in the [place] They recommend immediate implementation of the new equation refit without the race variable in all laboratories because the calculation does not include race. In addition to not including race in the calculation and reporting, it included diversity in its development, and has acceptable performance characteristics and potential consequences that do not disproportionately affect any one group of individuals. Performed By: #### L [id number] #### [facility] ([facility]) [address] [place] [address] Glucose [Mass/Vol] 164 mg/dL High 70-100 [facility] Comment on above: Performed By: #### L [id number] #### [facility] ([facility]) [address] [place] [address] Potassium [Moles/Vol] 3.7 mmol/L Normal 3.5-5.1 [facility] Comment on above: Performed By: #### L [id number] #### [facility] ([facility]) [address] [place] [address] Sodium [Moles/Vol] 133 mmol/L Low 136-145 [facility] Comment on above: Performed By: #### L [id number] #### [facility] ([facility]) [address] [place] [address] Urea nitrogen [Mass/Vol] 23 mg/dL Normal 7-25 [facility] Comment on above: Performed By: #### L [id number] #### [facility] ([facility]) [address] [place] [address] UREA NITROGEN/CREATININE (MASS RATIO) IN SER/PLAS 24.2 Normal [facility] Comment on above: Performed By: #### L [id number] #### [facility] ([facility]) [address] [place] [address] MAGNESIUMon 07-06-2023 Magnesium [Mass/Vol] 2.0 mg/dL Normal 1.9-2.7 [facility] Comment on above: Performed By: #### L [id number] ####[facility] ([facility])[address] [place] [address] POCT GLUCOSE METER UNSOLICIT ED RESULTSon 07-06-2023 Glucose [Mass/Vol] 203 mg/dL High 70-105 [facility] Comment on above: Order Comment: Waive d Testing in the ED is performed under the ED CLIA certificate #[id number]. Result Comment: [email or web address] Performed By: #### L [id number] #### [facility] ([facility]) [address] [place] [address] Glucose [Mass/Vol] 286 mg/dL High 70-105 [facility] Comment on above: Order Comment: Waive d Testing in the ED is performed under the ED CLIA certificate #[id number]. Result Comment: [email or web address] [email or web address] Performed By: #### L [id number] ####[facility] ([facility])[address] [place] [address] Glucose [Mass/Vol] 267 mg/dL High 70-105 [facility] Comment on above: Order Comment: Waive d Testing in the ED is performed under the ED CLIA certificate #[id number]. Result Comment: [email or web address] [email or web address] Performed By: #### L [id number] ####[facility] ([facility])[address] [facility] [place] [address] Glucose [Mass/Vol] 150 mg/dL High 70-105 [facility] Comment on above: Order Comment: Waive d Testing in the ED is performed under the ED CLIA certificate #[id number]. Result Comment: [email or web address] [email or web address] Performed By: #### L [id number] #### [facility] ([facility]) [address] [place] [address] 30on 07-05-2023 30 The patient is Moderately Stable - Low risk of patient condition declining or worsening The patient's goals for the shift include comfort The clinical goals for the shift include vss Over the shift, the patient did make progress toward the following goals. Problem: Pain - Adult Goal: Verbalizes/displays adequate comfort level or baseline comfort level Outcome: Progressing Problem: Safety - Adult Goal: Free from fall injury Outcome: Progressing Problem: Discharge Planning Goal: Discharge to home or other facility with appropriate resources Outcome: Progressing Problem: Chronic Conditions and Co-morbidities Goal: Patient's chronic conditions and co-morbidity symptoms are monitored and maintained or improved Outcome: Progressing Problem: Heart Failure diagnosis knowledge deficit Goal: Patient will verbalize understanding of how heart failure affects the body Outcome: Progressing Goal: Patient will verbalize understanding of how other conditions affect the heart Outcome: Progressing Problem: Fluid retention/overload Goal: Patient will be able to identify signs and symptoms of fluid retention Outcome: Progressing Problem: Heart failure medication adherence Goal: Consistently take heart failure medication as prescribed Outcome: Progressing Problem: Insufficient exercise regimen Goal: Patient will engage in physical activity safely Outcome: Progressing Problem: Heart failure progression and care needs Goal: Patient will verbalize understanding of heart failure progression Outcome: Progressing Problem: Heart failure maintenance Goal: Patient will not experience any symptoms of shortness of breath or body swelling over the next 3 months Outcome: Progressing Normal [facility] 30 Problem: Pain - Adul t Goal: Verbalizes/displays adequate comfort level or baseline comfort level Outcome: Progressing Problem: Safety - Adult Goal: Free from fall injury Outcome: Progressing Flowsheets (Taken 07/04/20231999) Free from fall injury: Identify cognitive and physical deficits and behaviors that affect risk of falls Assess patient frequently for physical needs The patient is Moderately Stable - Low risk of patient condition declining or worsening The patient's goals for the shift include comfort/rest The clinical goals for the shift include VSS Over the shift, the patient did make progress toward the following goals. Normal [facility] COMPREHENSIVE METABOLIC PANE Agus 07-05-2023 Albumin [Mass/Vol] 3.0 g/dL Low 3.5-5.7 [facility] Comment on above: Performed By: #### L [id number] #### [facility] ([facility]) [address] [place] [address] ALP [Catalytic activity/Vol] 82 U/L Normal 34-104 [facility] Comment on above: Performed By: #### L [id number] #### [facility] ([facility]) [address] [place] [address] ALT [Catalytic activity/Vol] 15 U/L Normal 7-52 [facility] Comment on above: Performed By: #### L [id number] #### [facility] ([facility]) [address] [place] [address] Anion gap [Moles/Vol] 10 mmol/L Normal 7-20 [facility] Comment on above: Performed By: #### L [id number] #### [facility] ([facility]) [address] [place] [address] AST [Catalytic activity/Vol] 20 U/L Normal 13-39 [facility] Comment on above: Performed By: #### L [id number] #### [facility] ([facility]) [address] [place] [address] Bilirubin [Mass/Vol] 1.0 mg/dL Normal 0.3-1.0 [facility] Comment on above: Performed By: #### L [id number] #### [facility] [address] [place] [address] Calcium [Mass/Vol] 9.1 mg/dL Normal 8.6-10.3 [facility] Comment on above: Performed By: #### L [id number] #### [facility] [address] [place] [address] Chloride [Moles/Vol] 100 mmol/L Normal 98-107 [facility] Comment on above: Performed By: #### L [id number] #### [facility] ([facility]) [address] [place] [address] CO2 [Moles/Vol] 27 mmol/L Normal 21-31 [facility] Comment on above: Performed By: #### L [id number] #### [facility] [address] [place] [address] Creatinine [Mass/Vol] 0.76 mg/dL Normal 0.60-1.20 [facility] Comment on above: Performed By: #### L [id number] #### [facility] [address] [place] [address] GLOMERULAR FILTRATION RATE ML/MIN/1.73 SQ M.PREDICTED 84.2 mL/min/1.73m*2 Normal >60.0 [facility] Comment on above: Result Comment: The [facility]???s estimated glomerular filtration rate (eGFR) will no longer include consideration of race in its calculation. The National Kidney Foundation???s eGFR Task Force developed new recommendations for the estimation of the glomerular filtration rate in the [place] They recommend immediate implementation of the new equation refit without the race variable in all laboratories because the calculation does not include race. In addition to not including race in the calculation and reporting, it included diversity in its development, and has acceptable performance characteristics and potential consequences that do not disproportionately affect any one group of individuals. Performed By: #### L [id number] #### [facility] ([facility]) [address] [place] [address] Glucose [Mass/Vol] 87 mg/dL Normal 70-100 [facility] Comment on above: Performed By: #### L [id number] #### [facility] ([facility]) [address] [place] [address] Potassium [Moles/Vol] 3.4 mmol/L Low 3.5-5.1 [facility] Comment on above: Performed By: #### L [id number] #### [facility] ([facility]) [address] [place] [address] Protein [Mass/Vol] 4.9 g/dL Low 6.0-8.3 [facility] Comment on above: Performed By: #### L [id number] #### [facility] ([facility]) [address] [place] [address] Sodium [Moles/Vol] 134 mmol/L Low 136-145 [facility] Comment on above: Performed By: #### L [id number] #### [facility] ([facility]) [address] [place] [address] Urea nitrogen [Mass/Vol] 14 mg/dL Normal 7-25 [facility] Comment on above: Performed By: #### L [id number] #### [facility] ([facility]) [address] [place] [address] UREA NITROGEN/CREATININE (MASS RATIO) IN SER/PLAS 18.4 Normal [facility] Comment on above: Performed By: #### L [id number] #### [facility] ([facility]) [address] [place] [address] MAGNESIUMon 07-05-2023 Magnesium [Mass/Vol] 1.6 mg/dL Low 1.9-2.7 [facility] Comment on above: Performed By: #### L [id number] #### [facility] ([facility]) [address] [place] [address] POCT GLUCOSE METER UNSOLICIT ED RESULTSon 07-05-2023 Glucose [Mass/Vol] 238 mg/dL High 70-105 [facility] Comment on above: Order Comment: Waive d Testing in the ED is performed under the ED CLIA certificate #[id number]. Result Comment: [email or web address] Performed By: #### L [id number] #### [facility] ([facility]) [address] [place] [address] Glucose [Mass/Vol] 283 mg/dL High 70-105 [facility] Comment on above: Order Comment: Waive d Testing in the ED is performed under the ED CLIA certificate #[id number]. Result Comment: [email or web address] [email or web address] Performed By: #### L [id number] #### [facility] ([facility]) [address] [place] [address] Glucose [Mass/Vol] 141 mg/dL High 70-105 [facility] Comment on above: Order Comment: Waive d Testing in the ED is performed under the ED CLIA certificate #[id number]. Result Comment: [email or web address] Performed By: #### L [id number] #### [facility] ([facility]) [address] [place] [address] Glucose [Mass/Vol] 103 mg/dL Normal 70-105 [facility] Comment on above: Order Comment: Waive d Testing in the ED is performed under the ED CLIA certificate #[id number]. Result Comment: [email or web address] [email or web address] Performed By: #### L [id number] #### [facility] ([facility]) [address] [place] [address] Glucose [Mass/Vol] 87 mg/dL Normal 70-105 [facility] Comment on above: Order Comment: Waive d Testing in the ED is performed under the ED CLIA certificate #[id number]. Result Comment: [email or web address] [email or web address] Performed By: #### L [id number] #### [facility] ([facility]) [address] [place] [address] Glucose [Mass/Vol] 71 mg/dL Normal 70-105 [facility] Comment on above: Order Comment: Waive d Testing in the ED is performed under the ED CLIA certificate #[id number]. Result Comment: ikoo esperanza Performed By: #### L [id number] #### [facility] ([facility]) [address] [place] [address] 30on 07-04-2023 30 Daily Case Managemen t Update Multidisciplinary rounds have been completed. Barriers to Discharge: Pending clinical course and improvement in clinical condition. Stroke alert was called at 1113am today for aphasia. Patient underwent CTA head and neck, CT head and EKG today. The symptoms resolved after scans performed. Patient needs Echo, Brain MRI wo contrast. Diet: Dietary Orders (From admission, onward) Start Ordered 07/04/23 1406 Regular Diet Diabetic Female (carb 45g/meal) Diet effective now Question Answer Comment Room Service? Yes Carbohydrate restriction: Diabetic Female (carb 45g/meal) 07/04/23 1406 07/04/23 1212 Special Kitchen Request Once Comments: Please snd a repeat of pt's breackfast for lunch. Thanks 07/04/23 1212 Physician Expected Discharge Date: Discharge Delays: PT Six Click Score: 17 OT Six Click Score: PT Recommendations: OT Recommendations: New Consults: Ancillary Consults (From admission, onward) Start Ordered 07/04/23 1213 Inpatient consult to Social Work Once Provider: (Not yet assigned) Question Answer Comment Is discharge planning needed? If yes, who is requesting discharge planning? Provider Select all services needed for the patient Home Health Types of Home Health Service needed Correction Please indicate your approval for this care by adding your name here: ANGELIKA SANTOS 07/04/23 1216 07/02/23 2347 Inpatient consult to Social Work Once Provider: (Not yet assigned) Question Answer Comment Is discharge planning needed? If yes, who is requesting discharge planning? Provider Select all services needed for the patient [facility] Facility (30 day convalescent stay) Please indicate your approval for this care by adding your name here: IVORY GARRETT 07/02/23 1819 Therapy Orders (From admission, onward) Start Ordered 07/04/23 1215 SKIMMER Bedside Swallow Eval and Treat (to determine safe diet level) Until therapy completed Comments: Bedside dysphagia screening exam Question Answer Comment Reason for SKIMMER Consult? Dysphagia (swallowing, poor intake) Reason for SKIMMER Consult? Speech/language cognition Speech/language focus: Aphasia Speech/language focus: Dysarthria Can patient sit upright? Yes Does patient have a tracheostomy? No 07/04/23 1216 07/04/23 1215 SKIMMER eval and treat Until therapy completed Question Answer Comment Reason for SKIMMER Consult? Speech/language cognition Speech/language focus: Aphasia Speech/language focus: Dysarthria 07/04/23 1216 07/04/23 1213 PT eval and treat Until therapy completed Question: Reason for PT? Answer: weakness 07/04/23 1216 07/04/23 1213 OT eval and treat Until therapy completed Question: Reason for OT? Answer: weakness 07/04/23 1216 Normal [facility] 30 The patient is Moderately Stable - Low risk of patient condition declining or worsening The patient's goals for the shift include comfort The clinical goals for the shift include VSS Over the shift, the patient did not make progress toward the following goals. Barriers to progression include na. Recommendations to address these barriers include na. [facility] 30 Problem: Pain - Adul t Goal: Verbalizes/displays adequate comfort level or baseline comfort level Outcome: Progressing Problem: Safety - Adult Goal: Free from fall injury Outcome: Progressing Flowsheets (Taken 07/03/20231999) Free from fall injury: Assess patient frequently for physical needs Identify cognitive and physical deficits and behaviors that affect risk of falls [place] fall precautions as indicated by assessment The patient is Moderately Stable - Low risk of patient condition declining or worsening The patient's goals for the shift include comfort The clinical goals for the shift include VSS Over the shift, the patient did make progress toward the following goals. Normal [facility] COMPREHENSIVE METABOLIC PANE Agus 07-04-2023 Albumin [Mass/Vol] 3.0 g/dL Low 3.5-5.7 [facility] Comment on above: Performed By: #### L [id number] ####[facility] ([facility])[address] [place] [address] ALP [Catalytic activity/Vol] 74 U/L Normal 34-104 [facility] Comment on above: Performed By: #### L [id number] ####[facility] [place] [address] ALT [Catalytic activity/Vol] 19 U/L Normal 7-52 [facility] Comment on above: Performed By: #### L [id number] ####[facility] ([facility])[address] [place] [address] Anion gap [Moles/Vol] 6 mmol/L Low 7-20 [facility] Comment on above: Performed By: #### L [id number] ####[facility] ([facility])[address] [place] [address] AST [Catalytic activity/Vol] 17 U/L Normal 13-39 [facility] Comment on above: Performed By: #### L [id number] ####[facility] ([facility])[address] [place] [address] Bilirubin [Mass/Vol] 0.8 mg/dL Normal 0.3-1.0 [facility] Comment on above: Performed By: #### L [id number] ####[facility] ([facility])[address] [place] [address] Calcium [Mass/Vol] 9.4 mg/dL Normal 8.6-10.3 [facility] Comment on above: Performed By: #### L [id number] ####[facility] [place] [address] Chloride [Moles/Vol] 103 mmol/L Normal 98-107 [facility] Comment on above: Performed By: #### L [id number] ####[facility] ([facility])[address] [place] [address] CO2 [Moles/Vol] 30 mmol/L Normal 21-31 [facility] Comment on above: Performed By: #### L [id number] ####[facility] [place] [address] Creatinine [Mass/Vol] 0.65 mg/dL Normal 0.60-1.20 [facility] Comment on above: Performed By: #### L [id number] ####[facility] ([facility])[address] [place] [address] GLOMERULAR FILTRATION RATE ML/MIN/1.73 SQ M.PREDICTED 94.7 mL/min/1.73m*2 Normal >60.0 [facility] Comment on above: Result Comment: The [facility]???s estimated glomerular filtration rate (eGFR) will no longer include consideration of race in its calculation. The National Kidney Foundation???s eGFR Task Force developed new recommendations for the estimation of the glomerular filtration rate in the [place] They recommend immediate implementation of the new equation refit without the race variable in all laboratories because the calculation does not include race. In addition to not including race in the calculation and reporting, it included diversity in its development, and has acceptable performance characteristics and potential consequences that do not disproportionately affect any one group of individuals. Performed By: #### L [id number] ####[facility] ([facility])[address] [place] [address] Glucose [Mass/Vol] 69 mg/dL Low 70-100 [facility] Comment on above: Performed By: #### L [id number] ####[facility] ([facility])[address] [place] [address] Potassium [Moles/Vol] 3.2 mmol/L Low 3.5-5.1 [facility] Comment on above: Performed By: #### L [id number] ####[facility] ([facility])[address] [place] [address] Protein [Mass/Vol] 5.0 g/dL Low 6.0-8.3 [facility] Comment on above: Performed By: #### L [id number] ####[facility] ([facility])[address] [place] [address] Sodium [Moles/Vol] 136 mmol/L Normal 136-145 [facility] Comment on above: Performed By: #### L [id number] ####[facility] ([facility])[address] [place] [address] Urea nitrogen [Mass/Vol] 17 mg/dL Normal 7-25 [facility] Comment on above: Performed By: #### L [id number] ####[facility] ([facility])[address] [place] [address] UREA NITROGEN/CREATININE (MASS RATIO) IN SER/PLAS 26.2 Normal [facility] Comment on above: Performed By: #### L [id number] ####[facility] ([facility])[address] [place] [address] CONSULTon 07-04-2023 CONSULT --- Attestation signed by Yareli Vegas MD at 07/04/2023 6:47 PM I personally saw and examined the patient on the same date of service as resident/fellow Dr. Avila. I discussed the findings and therapeutic plan with the resident/fellow Dr. Avila. I agree with the documentation, except for any edits/updates below. Teaching Physician's Revisions: Patient was admitted with acute on chronic diastolic heart failure exacerbation. Patient have minimally elevated troponin consistent with type II NSTEMI in the setting of heart failure exacerbation. Also the patient was tested to positive for COVID which might contribute to his NSTEMI. Will manage his heart failure exacerbation and will follow his enzymes. Cardiology Consult Note Reason for Consult: NSTEMI/CHF HPI: Laura Lawson is a 72 y.o. female with a past medical history significant for CAD status post stents x 4, heart failure who presented with shortness of breath and was found to have NSTEMI, acute heart failure exacerbation and COVID-positive at [facility]. Patient stated that she has not been compliant with torsemide due to having upper respiratory symptoms for the last week. She stated that she felt short of breath even at rest. Labs were significant for troponin 180, BNP 19,000. She was given Lasix 40 mg IV. Chest x-ray demonstrated Vascular congestion and bilateral effusions.EKG with sinus rhythm and first-degree AV block. Cardiology was consulted for NSTEMI and congestive heart failure exacerbation. At [facility], BNP greater than 2717. Troponin 0.12-->0.10. On my evaluation, patient states that her shortness of breath has improved significantly. Denies any current chest pain. Of note, Echocardiogram 05/17/2022 with EF 55%, grade 1 diastolic dysfunction. Cardiology ROS: GENERAL: Denies fever, chills, night sweats, weight loss. CARDIOVASCULAR: Denies chest pain, exertional dyspnea, orthopnea/PND, lower extremity edema, palpitations, lightheadedness/dizzine ss, syncope. RESPIRATORY: Denies SOB, coughing, wheezing GI: Denies abdominal pain, nausea/vomiting. PSYCH: Denies anxiety. Past Medical History She has a past medical history of Coronary artery disease, Diabetes mellitus (CMS/HCC), Gout, Hypertension, and Sleep apnea. Surgical History She has a past surgical history that includes Cardiac catheterization; Carpal tunnel release; Hysterectomy; Thyroid surgery; and Back surgery. Social History She reports that she has never smoked. She has never used smokeless tobacco. She reports that she does not currently use alcohol. No history on file for drug use. Family History Family History Problem Relation Name Age of Onset JABARI disease Mother Heart attack Father Allergies Patient has no known allergies. Medications Medications Prior to Admission Medication Sig Dispense Refill Last Dose allopurinol (Zyloprim) 300 mg tablet Take 300 mg by mouth in the morning. Past Month aspirin 81 mg EC tablet Take 81 mg by mouth in the morning. Past Month atorvastatin (Lipitor) 40 mg tablet Take 40 mg by mouth in the morning. Past Month baclofen (Lioresal) 10 mg tablet Take 10 mg by mouth at bedtime. Past Month candesartan (Atacand) 32 mg tablet Take 32 mg by mouth in the morning. Past Month hydrALAZINE (Apresoline) 100 mg tablet Take 100 mg by mouth in the morning, at noon, and at bedtime. Past Month insulin lispro (HumaLOG) 100 unit/mL injection Patient reports taking three times daily 15 minutes before meals. Reports taking 25 units of Humalog to decrease glucose reading by 100 Past Month labetalol (Normodyne) 300 mg tablet Take 300 mg by mouth in the morning and at bedtime. Past Month meloxicam (Mobic) 15 mg tablet Take 15 mg by mouth in the morning. Past Month nitroglycerin (Nitrostat) 0.3 mg SL tablet nitroglycerin 0.3 mg sublingual tablet 07/02/2023 omeprazole (PriLOSEC) [address] capsule Past Month potassium chloride CR (Klor-Con M20) 20 mEq ER tablet every 12 (twelve) hours. Past Month torsemide (Demadex) 20 mg tablet Take 20 mg by mouth in the morning and at bedtime. Past Month Toujeo Max U-300 SoloStar 300 unit/mL (3 mL) injection Inject 100 Units under the skin in the morning. Past Week Trulicity 1.5 mg/0.5 mL pen injector Inject 1.5 mg under the skin 1 (one) time per week. Past Week Last Recorded Vitals Patient Vitals for the past 24 hrs: BP Temp Temp src Pulse Resp SpO2 Height Weight 07/03/23 1205 133/57 -- -- 74 -- 95 % -- -- 07/03/23 0900 -- -- -- -- -- 96 % -- -- 07/03/23 0825 (!) 154/100 -- -- 67 -- -- -- -- 07/03/23 0800 -- -- -- 78 20 94 % -- -- 07/03/23 0536 -- -- -- -- -- -- -- 113 kg (248 lb 3.8 oz) 07/03/23 0400 142/68 -- -- 66 12 93 % -- -- 07/03/23 0311 131/62 -- -- 75 25 94 % -- -- 07/03/23 0204 (!) 183/87 -- -- (more content not included)... Normal [facility] CONSULT --- Attestation signed by Elliott Clements MD at 07/07/2023 10:47 PM Attending note: Marcus Michelle M.D., personally performed the face to face diagnostic evaluation on this patient. I have reviewed the YOVANY's History, Exam, and MDM and agree with the assessment and plan as written Reason For Consult Stroke alert due to aphasia and dysarthria Referring Provider: 3A RNs History Of Present Illness Laura Lawson is an 72 y.o. female who came from [place] ED with N-STEMI, acute CHF exacerbation, KJ, covid positive obesity and CAD with 4 stents. Plavix stopped in August 2022. Cardiology is treating Pt for CHF exacerbation. Patient endorses chronic SOB but reports worsening prior to arrival to [place] ED. Was given Lasix 40 mg IV while at [place]. +covid-19. Chest X-ray showed cardiomegaly with vascular congestion and bilateral effusions. EKG sinus rhythm, first degree AV block, anterolateral myocardial infarction, probably recent. Possible right ventricular hypertrophy. Patient was talking on her phone this morning around 11a. Both Patient and Nursing asst noticed her speech changed acutely. Her speech became slurred and aphasic. Stroke alert was called at 1113a. LKW was 1110am. Initial NIH 3. Patient symptoms were improving during NIH. Speech still slurred and difficulty saying certain words. No weakness. Pt was taken to CT scan for NCCT and CTA head and Neck. Speech was improved after CT scans. Past Medical History She has a past medical history of Coronary artery disease, Diabetes mellitus (CMS/HCC), Gout, Hypertension, and Sleep apnea. Surgical History She has a past surgical history that includes Cardiac catheterization; Carpal tunnel release; Hysterectomy; Thyroid surgery; and Back surgery. Family History Family History Problem Relation Name Age of Onset JABARI disease Mother Heart attack Father Social History She reports that she has never smoked. She has never used smokeless tobacco. She reports that she does not currently use alcohol. No history on file for drug use. Allergies Patient has no known allergies. Medications Medications Prior to Admission Medication Sig Dispense Refill Last Dose allopurinol (Zyloprim) 300 mg tablet Take 300 mg by mouth in the morning. Past Month aspirin 81 mg EC tablet Take 81 mg by mouth in the morning. Past Month atorvastatin (Lipitor) 40 mg tablet Take 40 mg by mouth in the morning. Past Month baclofen (Lioresal) 10 mg tablet Take 10 mg by mouth at bedtime. Past Month candesartan (Atacand) 32 mg tablet Take 32 mg by mouth in the morning. Past Month hydrALAZINE (Apresoline) 100 mg tablet Take 100 mg by mouth in the morning, at noon, and at bedtime. Past Month insulin lispro (HumaLOG) 100 unit/mL injection Patient reports taking three times daily 15 minutes before meals. Reports taking 25 units of Humalog to decrease glucose reading by 100 Past Month labetalol (Normodyne) 300 mg tablet Take 300 mg by mouth in the morning and at bedtime. Past Month meloxicam (Mobic) 15 mg tablet Take 15 mg by mouth in the morning. Past Month nitroglycerin (Nitrostat) 0.3 mg SL tablet nitroglycerin 0.3 mg sublingual tablet 07/02/2023 omeprazole (PriLOSEC) [address] capsule Past Month potassium chloride CR (Klor-Con M20) 20 mEq ER tablet every 12 (twelve) hours. Past Month torsemide (Demadex) 20 mg tablet Take 20 mg by mouth in the morning and at bedtime. Past Month Toujeo Max U-300 SoloStar 300 unit/mL (3 mL) injection Inject 100 Units under the skin in the morning. Past Week Trulicity 1.5 mg/0.5 mL pen injector Inject 1.5 mg under the skin 1 (one) time per week. Past Week Active Hospital Medications Medication Dose Route Frequency Last Admin aspirin 81 mg oral Daily 81 mg at 07/04/23 09 atorvastatin 80 mg oral Nightly 80 mg at 07/03/23 214 carvedilol 6.25 mg oral BID 6.25 mg at 07/04/23 09 dapagliflozin propanediol 10 mg oral Daily 10 mg at 07/04/23 09 glucose 24 g oral q15 min PRN Or dextrose 50 % in water (D50W) 25 g intravenous q15 min PRN furosemide 40 mg intravenous Daily 40 mg at 07/04/23 09 heparin (porcine) 5,000 Units subcutaneous q12h FRANNY 5,000 Units at 07/04/23 09 hydrALAZINE 100 mg oral TID 100 mg at 07/04/23 0900 insulin aspart 0-20 Units subcutaneous Before meals & nightly 4 Units at 07/03/23 1719 insulin glargine 35 Units subcutaneous BID 35 Units at 07/04/23 1050 losartan 50 mg oral Daily 50 mg at 07/04/23 0904 remdesivir 100 mg intravenous Daily Stopped at 07/04/23 1001 sodium chloride 10 mL intravenous q8h PRN Review of Systems See HPI, otherwise ROS negative as below CONSTITUTIONAL: negative HEENT: negative RESPIRATORY: negative CARDIOVASCULAR: negative GASTROINTESTINAL: negative GENITOURINARY: negative INTEGUMENT/DEIRDRE (more content not included)... Normal [facility] CT HEAD WO IV CONTRASTon CT HEAD WO IV CONTRAST CT HEAD WO IV CON TRAST 07/04/2023 11:40 AM CLINICAL INDICATIONS: Acute stroke Aphasia Dysarthria Acute neurologic deficit TECHNIQUE: Multidetector CT axial slices multiplanar reformats were performed and viewed on a separate workstation and reviewed to further define anatomy and possible pathology. All CT scans at this facility use dose modulation, iterative reconstruction, and/or weight based dosing when appropriate to reduce radiation dose to as low as reasonably achievable COMPARISON: None. FINDINGS: There is significant mucosal thickening in the left maxillary sinus Mild also thickening in the ethmoid regions Mastoids, sphenoid, frontal and right maxillary look well Slight prominence of the ventricles may be related to a degree of atrophy No acute bleed was seen No extra-axial fluid collection No midline shift or herniation There is moderate multifocal chronic white matter disease most likely small vessel ischemic change No visible mass or vasogenic edema Probable chronic ischemic changes in the basal ganglia regions Waite-white differentiation looks relatively preserved with no large acute infarct evident Questionable loss of waite-white differentiation in the left frontal lobe medially aerated IMPRESSION: Mild atrophy and yuqr-[id number]-anudwjre chronic ischemic changes with no large acute infarct, mass, or bleed seen There is questionable mild loss of the waite-white differentiation the medial left frontal lobe which could be seen with a small acute infarct Consider follow-up MRI if neurologic changes persist and more detailed imaging needed There is some fullness of the soft tissue along the right greater than left tonsillar region. Correlate for symptoms referable to this. Direct inspection or short-term follow-up soft tissue neck imaging surveillance should be considered to prove benign conditions/characterist ics Electronically signed: Chuck Mendoza. Normal [facility] CTA HEAD W AND WO IV CONTRAS Ton 07-04-2023 CTA HEAD W AND WO IV CONTRAST CTA HEAD W AND WO IV CONTRAST 07/04/2023 11:41 AM CLINICAL INDICATIONS: Acute stroke with neurologic deficit, aphasia TECHNIQUE: CT angiography of the head were obtained with intravenous contrast. Multiplanar, MIP, and volume rendered 3-D reformats were generated on a separate workstation and reviewed to further define anatomy and possible pathology. All CT scans at this facility use dose modulation, iterative reconstruction, and/or weight based dosing when appropriate to reduce radiation dose to as low as reasonably achievable. COMPARISON: Head CT from the same day Today's CT neck should be reported separately FINDINGS: There is opacification of the distal vertebral artery bilaterally There is [id number]-sq-grudaupv calcification in the distal left vertebral artery There is tortuosity of the vertebral basilar region The basilar artery is opacified The posterior cerebral arteries are opacified The distal internal carotid arteries are opacified There is opacification of the middle cerebral artery bilaterally There is opacification of the anterior cerebral artery bilaterally There is no visible intracranial aneurysm There is no large dominant central branch occlusion seen It looks like there is a developmental variation with proximal bifurcation of the right middle cerebral artery It looks like there is mild narrowing of the left and right internal carotid artery along the proximal cavernous segment with some calcifications noted bilaterally Axial source thin section images suggest severe narrowing of the right posterior cerebral artery without convincing occlusion There is left maxillary sinusitis There is asymmetric fullness and enhancement along the right tonsillar tissue with small and borderline enlarged lymph nodes in the neck. Please refer to the separate detailed neck report. Direct inspection and/or follow-up imaging surveillance should be considered IMPRESSION: No visible intracranial aneurysm No visible large dominant central arterial branch occlusion On the thin section source images there is severe narrowing of the proximal right posterior cerebral artery. Correlate for acute visual deficit Follow-up MRI may prove useful Soft tissue fullness in the right pharyngeal tonsillar region should be closely followed to rule out neoplasm Electronically signed: Chuck Mendoza. Normal [facility] CTA NECK W AND WO IV CONTRAS Ton 07-04-2023 CTA NECK W AND WO IV CONTRAST CTA NECK W AND WO IV CONTRAST 07/04/2023 11:41 AM CLINICAL INDICATIONS: Stroke, neurologic deficit. TECHNIQUE: Multi-detector CT angiography axial slices of the neck were obtained during intravenous administration of IV contrast material. Sagittal, coronal, and 3-D reconstructions were performed and viewed on a separate workstation. The [place] Symptomatic Carotid Endarterectomy Trial (NASCET) method for calculating the degree of stenosis was utilized for stenosis measurements. COMPARISON: None. 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 Patent subclavian, vertebral, basilar arteries. Patent common carotid artery. Atherosclerotic disease right greater than left carotid bifurcations without flow-limiting stenosis. Patent cervical internal carotid arteries. Moderate mucosal thickening throughout the left maxillary sinus. Moderate right greater than left pleural effusions, large central pulmonary trunk. Heavily calcified coronary arteries. Left thyroidectomy. Heterogeneous enlarged right thyroid lobe. Diffuse idiopathic skeletal hyperostosis. IMPRESSION: No dissection, occlusion, or flow limiting stenosis of the major neck arterial structures. If there is persistent concern for acute ischemia, consider MR. Signs of cardiac dysfunction including pleural effusions, pulmonary edema. Enlarged pulmonary trunk suggestive of early arterial hypertension. All CT scans at this facility use dose modulation, iterative reconstruction, and/or weight based dosing when appropriate to reduce radiation dose to as low as reasonably achievable Electronically signed: Otto Mas. Normal [facility] MR BRAIN WO CONTRASTon 07-04 MR BRAIN WO CONTRAST 0MR BRAIN WO CONTRA ST 07/04/2023 10:21 PM CLINICAL INDICATIONS: Stroke, focal neurological deficit PROTOCOL: Multiplanar multisequence MRI of the brain without contrast COMPARISON: CTA head 07/04/2023 FINDINGS: Tiny focal area of restricted diffusion in the right cerebellar hemisphere (series 2A, image 10). Subtle T2 FLAIR signal corresponds to this region. No evidence of hemorrhage. No midline shift or mass effect. The extra-axial spaces are unremarkable appearing. Scattered T2/FLAIR signal abnormality in the periventricular deep subcortical white matter is nonspecific, though likely related to chronic microvascular ischemic change. The ventricular system is prominent, likely related to compensatory dilatation could mild global parenchymal atrophy. Normal appearance of the major intracranial arterial flow voids. The orbits and infratemporal soft tissues are unremarkable appearing. Mucosal thickening of bilateral maxillary sinuses and ethmoid air cells. Mastoid air cells are clear. Brainstem and cerebellum is unremarkable appearing. Contents of sella turcica are normal. IMPRESSION: *Tiny focus of acute ischemia in the right cerebellar hemisphere. No evidence of hemorrhage. *Mild global parenchymal atrophy with confluent periventricular white matter disease most likely related to chronic microvascular ischemic change. Approved by:Sebas Iordanouo07/04/2023 11:19 PM. I, Fortunato Milan,have reviewed the image(s) and agree with the findings in this report. Electronically signed: Fortunato Milan. Normal [facility] POCT GLUCOSE METER UNSOLICIT ED RESULTSon 07-04-2023 Glucose [Mass/Vol] 186 mg/dL High 70-105 [facility] Comment on above: Order Comment: Waive d Testing in the ED is performed under the ED CLIA certificate #[id number]. Result Comment: [email or web address] Performed By: #### L [id number] ####[facility] ([facility]AKER)[address] [place] [address] Glucose [Mass/Vol] 69 mg/dL Low 70-105 [facility] Comment on above: Order Comment: Waive d Testing in the ED is performed under the ED CLIA certificate #[id number]. Result Comment: [email or web address] Performed By: #### L [id number] ####[facility] ([facility])[address] [place] [address] Glucose [Mass/Vol] 71 mg/dL Normal 70-105 [facility] Comment on above: Order Comment: Waive d Testing in the ED is performed under the ED CLIA certificate #[id number]. Result Comment: [email or web address] Performed By: #### L [id number] ####[facility] ([facility])[address] [place] [address] Glucose [Mass/Vol] 83 mg/dL Normal 70-105 [facility] Comment on above: Order Comment: Waive d Testing in the ED is performed under the ED CLIA certificate #[id number]. Result Comment: [email or web address] Performed By: #### L [id number] ####[facility] ([facility])[address] [place] [address] Glucose [Mass/Vol] 76 mg/dL Normal 70-105 [facility] Comment on above: Order Comment: Waive d Testing in the ED is performed under the ED CLIA certificate #[id number]. Result Comment: [email or web address] Performed By: #### L [id number] ####[facility] ([facility])[address] [place] [address] TROPONIN Ion 07-04-2023 Troponin I.cardiac [Mass/Vol] 0.10 ng/mL High 0.00-0.04 [facility] Comment on above: Performed By: #### L [id number] ####[facility] ([facility])[address] [place] [address] 30on 07-03-2023 30 Daily Case Managemen t Update Multidisciplinary rounds have been completed. Barriers to Discharge: Pending clinical course and improvement in clinical condition. Patient needs echocardiogram. Diet: Dietary Orders (From admission, onward) Start Ordered 07/03/23 0921 Regular Diet Diabetic Female (carb 45g/meal) Diet effective now Question Answer Comment Room Service? Yes Carbohydrate restriction: Diabetic Female (carb 45g/meal) 07/03/23 0920 Physician Expected Discharge Date: 07/05/2023 Discharge Delays: PT Six Click Score: 17 OT Six Click Score: PT Recommendations: OT Recommendations: New Consults: Consult Orders (From admission, onward) Start Ordered 07/02/23 2355 Inpatient consult to Cardiology Once Specialty: Cardiology Provider: (Not yet assigned) Question: Reason for Consult? Answer: NSTEMI/CHF 07/02/232356 Ancillary Consults (From admission, onward) Start Ordered 07/02/23 234 Inpatient consult to Social Work Once Provider: (Not yet assigned) Question Answer Comment Is discharge planning needed? If yes, who is requesting discharge planning? Provider Select all services needed for the patient [facility] (30 day convalescent stay) Please indicate your approval for this care by adding your name here: IVORY GARRETT 07/02/23 2357 07/02/232346 Consult to Nutrition Services Once Provider: (Not yet assigned) Question: Reason for Consult? Answer: NSTEMI/CHF 07/02/232356 Normal [facility] 30 The patient is Moderately Stable - Low risk of patient condition declining or worsening The patient's goals for the shift include COMFORT The clinical goals for the shift include VSS Over the shift, the patient did not make progress toward the following goals. Barriers to progression include na. Recommendations to address these barriers include na. Normal [facility] 30 The patient is Moderately Stable - Low risk of patient condition declining or worsening The patient's goals for the shift include COMFORT The clinical goals for the shift include VSS Normal [facility] B-TYPE NATRIURETIC PEPTIDEon 07-03-2023 Natriuretic peptide B (Bld) [Mass/Vol] 2717 pg/mL High 0-100 [facility] Comment on above: Performed By: #### L [id number] #### [facility] ([facility]) [address] [place] [address] CBC WITH AUTO DIFFERENTIALon 07-03-2023 Basophils (Bld) [#/Vol] 0.06 10*3/uL Normal 0.00-0.20 [facility] Comment on above: Performed By: #### L [id number] #### [facility] ([facility]) [address] [place] [address] Basophils/100 WBC (Bld) 0.7 % Normal 0.0-1.0 [facility] Comment on above: Performed By: #### L [id number] #### [facility] ([facility]) [address] [place] [address] Eosinophils (Bld) [#/Vol] 0.08 10*3/uL Normal 0.00-0.50 [facility] Comment on above: Performed By: #### L [id number] #### [facility] ([facility]) [address] [place] [address] Eosinophils/100 WBC (Bld) 0.9 % Normal 0.0-6.0 [facility] Comment on above: Performed By: #### L [id number] #### [facility] [address] [place] [address] Erythrocyte distribution width (RBC) [Ratio] 15.1 % High 11.5-15.0 [facility] Comment on above: Performed By: #### L [id number] #### [facility] ([facility]) [address] [place] [address] ERYTHROCYTE MEAN CORPUSCULAR HEMOGLOBIN CONCENTRATION (G/DL) BY AUTOMATED 31.9 g/dL Low 32.0-35.0 [facility] Comment on above: Performed By: #### L [id number] #### [facility] ([facility]) [address] [place] [address] Hematocrit (Bld) [Volume fraction] 39.8 % Normal 36.0-48.0 [facility] Comment on above: Performed By: #### L [id number] #### [facility] ([facility]) [address] [place] [address] Hemoglobin (Bld) [Mass/Vol] 12.7 g/dL Normal 12.0-15.0 [facility] Comment on above: Performed By: #### L [id number] #### [facility] ([facility]) [address] [place] [address] Immature granulocytes (Bld) [#/Vol] 0.03 10*3/uL Normal 0.00-0.20 [facility] Comment on above: Performed By: #### L [id number] #### [facility] ([facility]) [address] [place] [address] Immature granulocytes/100 WBC (Bld) 0.3 % Normal 0.0-1.0 [facility] Comment on above: Performed By: #### L [id number] #### [facility] ([facility]) [address] [place] [address] Lymphocytes (Bld) [#/Vol] 1.52 10*3/uL Normal 1.20-4.00 [facility] Comment on above: Performed By: #### L [id number] #### [facility] ([facility]) [address] [place] [address] Lymphocytes/100 WBC (Bld) 17.6 % Low 20.0-45.0 [facility] Comment on above: Performed By: #### L [id number] #### [facility] ([facility]) [address] [place] [address] MCH (RBC) [Entitic mass] 29.3 pg Normal 27.0-33.0 [facility] Comment on above: Performed By: #### L [id number] #### [facility] ([facility]) [address] [place] [address] MCV (RBC) [Entitic vol] 91.9 fL Normal 82.0-98.0 [facility] Comment on above: Performed By: #### L [id number] #### [facility] ([facility]) [address] [place] [address] Monocytes (Bld) [#/Vol] 1.20 10*3/uL High 0.10-1.00 [facility] Comment on above: Performed By: #### L [id number] #### [facility] ([facility]) [address] [place] [address] Monocytes/100 WBC (Bld) 13.9 % High 5.0-12.0 [facility] Comment on above: Performed By: #### L [id number] #### [facility] [address] [place] [address] Neutrophils (Bld) [#/Vol] 5.75 10*3/uL Normal 1.60-7.60 [facility] Comment on above: Performed By: #### L [id number] #### [facility] ([facility]) [address] [place] [address] Neutrophils/100 WBC (Bld) 66.6 % Normal 40.0-72.0 [facility] Comment on above: Performed By: #### L [id number] #### [facility] ([facility]) [address] [place] [address] NRBC (PER 100 WBCS) BY AUTOMATED COUNT 0.0 % Normal 0 [facility] Comment on above: Performed By: #### L [id number] #### [facility] ([facility]) [address] [place] [address] PLATELETS (10*3/UL) IN BLOOD AUTOMATED COUNT 354 10*3/uL Normal 150-400 [facility] Comment on above: Performed By: #### L [id number] #### [facility] ([facility]) [address] [place] [address] RBC (Bld) [#/Vol] 4.33 10*6/uL Normal 3.80-5.00 [facility] Comment on above: Performed By: #### L [id number] #### [facility] ([facility]) [address] [place] [address] WBC (Bld) [#/Vol] 8.64 10*3/uL Normal 4.00-10.60 [facility] Comment on above: Performed By: #### L [id number] #### [facility] ([facility]) [address] [place] [address] COMPREHENSIVE METABOLIC PANE Agus 07-03-2023 Albumin [Mass/Vol] 3.5 g/dL Normal 3.5-5.7 [facility] Comment on above: Performed By: #### L [id number] #### [facility] [address] [place] [address] ALP [Catalytic activity/Vol] 102 U/L Normal 34-104 [facility] Comment on above: Performed By: #### L [id number] #### [facility] [address] [place] [address] ALT [Catalytic activity/Vol] 24 U/L Normal 7-52 [facility] Comment on above: Performed By: #### L [id number] #### [facility] ([facility] [address] [place] [address] Anion gap [Moles/Vol] 13 mmol/L Normal 7-20 [facility] Comment on above: Performed By: #### L [id number] #### [facility] ([facility]) [address] [place] [address] AST [Catalytic activity/Vol] 23 U/L Normal 13-39 [facility] Comment on above: Performed By: #### L [id number] #### [facility] ([facility]) [address] [place] [address] Bilirubin [Mass/Vol] 1.2 mg/dL High 0.3-1.0 [facility] Comment on above: Performed By: #### L [id number] #### [facility] ([facility]) [address] [place] [address] Calcium [Mass/Vol] 9.4 mg/dL Normal 8.6-10.3 [facility] Comment on above: Performed By: #### L [id number] #### [facility] [address] [place] [address] Chloride [Moles/Vol] 98 mmol/L Normal 98-107 [facility] Comment on above: Performed By: #### L [id number] #### [facility] ([facility]) [address] [place] [address] CO2 [Moles/Vol] 27 mmol/L Normal 21-31 [facility] Comment on above: Performed By: #### L [id number] #### [facility] [address] [place] [address] Creatinine [Mass/Vol] 0.71 mg/dL Normal 0.60-1.20 [facility] Comment on above: Performed By: #### L [id number] #### [facility] ([facility]) [address] [place] [address] GLOMERULAR FILTRATION RATE ML/MIN/1.73 SQ M.PREDICTED 91.4 mL/min/1.73m*2 Normal >60.0 [facility] Comment on above: Result Comment: The [facility]???s estimated glomerular filtration rate (eGFR) will no longer include consideration of race in its calculation. The [employer]???s eGFR Task Force developed new recommendations for the estimation of the glomerular filtration rate in the [place] They recommend immediate implementation of the new equation refit without the race variable in all laboratories because the calculation does not include race. In addition to not including race in the calculation and reporting, it included diversity in its development, and has acceptable performance characteristics and potential consequences that do not disproportionately affect any one group of individuals. Performed By: #### L [id number] #### [facility] ([facility]) [address] [place] [address] Glucose [Mass/Vol] 323 mg/dL High 70-100 [facility] Comment on above: Performed By: #### L [id number] #### [facility] ([facility]) [address] [place] [address] Potassium [Moles/Vol] 3.6 mmol/L Normal 3.5-5.1 [facility] Comment on above: Performed By: #### L [id number] #### [facility] ([facility]) [address] [place] [address] Protein [Mass/Vol] 6.0 g/dL Normal 6.0-8.3 [facility] Comment on above: Performed By: #### L [id number] #### [facility] ([facility]) [address] [place] [address] Sodium [Moles/Vol] 134 mmol/L Low 136-145 [facility] Comment on above: Performed By: #### L [id number] #### [facility] [address] [place] [address] Urea nitrogen [Mass/Vol] 11 mg/dL Normal 7-25 [facility] Comment on above: Performed By: #### L [id number] #### [facility] ([facility]) [address] [place] [address] UREA NITROGEN/CREATININE (MASS RATIO) IN SER/PLAS 15.5 Normal [facility] Comment on above: Performed By: #### L [id number] #### [facility] ([facility]) [address] [place] [address] HEMOGLOBIN A1Con 07-03-2023 Glucose [Mass/Vol] 263 mg/dL Normal [facility] Comment on above: Performed By: #### L [id number] #### [facility] ([facility]) [address] [place] [address] HbA1c (Bld) [Mass fraction] 10.8 % High 4.0-6.0 [facility] Comment on above: Performed By: #### L [id number] #### [facility] ([facility]) [address] [place] [address] LIPID PANELon 07-03-2023 CHOL/HDL 2.7 mg/dL Normal [facility] Comment on above: Performed By: #### L [id number] #### [facility] ([facility]) [address] [place] [address] Cholesterol [Mass/Vol] 170 mg/dL Normal 120-200 [facility] Comment on above: Performed By: #### L [id number] #### [facility] [address] [place] [address] Magnesium [Mass/Vol] 105 mg/dL Normal 40-149 [facility] Comment on above: Result Comment: TRIG LYCERIDE REFERENCE RANGE: 20 YEARS AND OLDER CARDIOVASCULAR RISK LESS THAN 150 mg/dL LOW RISK 150 TO 199 mg/dL BORDERLINE RISK 200 mg/dL AND GREATER HIGH RISK Performed By: #### L [id number] #### [facility] [address] [place] [address] Magnesium [Mass/Vol] 87 mg/dL Normal 0-160 [facility] Comment on above: Performed By: #### L [id number] #### [facility] ([facility]) [address] [place] [address] Magnesium [Mass/Vol] 62 mg/dL Normal 23-92 [facility] Comment on above: Performed By: #### L [id number] #### [facility] ([facility]) [address] [place] [address] NON HDL CHOL. (LDL+VLDL) 108 Normal [facility] Comment on above: Performed By: #### L [id number] #### [facility] ([facility]) [address] [place] [address] TOTAL VLDL-C 21 mg/dL Normal 0-40 [facility] Comment on above: Performed By: #### L [id number] #### [facility] ([facility]) [address] [place] [address] MAGNESIUMon 07-03-2023 Magnesium [Mass/Vol] 1.9 mg/dL Normal 1.9-2.7 [facility] Comment on above: Performed By: #### L [id number] #### [facility] ([facility]) [address] [place] [address] Magnesium [Mass/Vol] 1.4 mg/dL Low 1.9-2.7 [facility] Comment on above: Performed By: #### L [id number] #### [facility] ([facility]) [address] [place] [address] NURSNOTEon 07-03-2023 NURSNOTE Covid swabbed patien t twice, both tests resulted in negative results. KENDALL Ford informed. Results entered in computer. Normal [facility] PHOSPHORUSon 07-03-2023 Magnesium [Mass/Vol] 2.7 mg/dL Normal 2.5-5.0 [facility] Comment on above: Performed By: #### L [id number] ####[facility] ([facility])[address] [place] [address] POCT GLUCOSE METER UNSOLICIT ED RESULTSon 07-03-2023 Glucose [Mass/Vol] 116 mg/dL High 70-105 [facility] Comment on above: Order Comment: Waive d Testing in the ED is performed under the ED CLIA certificate #[id number]. Result Comment: [email or web address] Performed By: #### L [id number] ####[facility] ([facility])[address] [place] [address] Glucose [Mass/Vol] 188 mg/dL High 70-105 [facility] Comment on above: Order Comment: Waive d Testing in the ED is performed under the ED CLIA certificate #[id number]. Result Comment: [email or web address] Performed By: #### L [id number] ####[facility] ([facility])[address] [place] [address] Glucose [Mass/Vol] 260 mg/dL High 70-105 [facility] Comment on above: Order Comment: Waive d Testing in the ED is performed under the ED CLIA certificate #[id number]. Result Comment: [email or web address] Performed By: #### L [id number] #### [facility] ([facility]) [address] [facility] [place] [address] Glucose [Mass/Vol] 425 mg/dL High 70-105 [facility] Comment on above: Order Comment: Waive d Testing in the ED is performed under the ED CLIA certificate #[id number]. Result Comment: [email or web address] Performed By: #### L [id number] ####[facility] ([facility])[address] [place] [address] PROGRESSon 07-03-2023 SARS-CoV-2 (COVID-19) RNA GUS+probe Ql (Unsp spec) Pt admitted to hospital for NSTEMI, acute CHF exacerbation, and Covid positive; hx of CAD s/p RENO. Pt has echo scheduled. I will wait for current echo results to determine pt's eligibility to participate in cardiac rehab (CR) therapy with HF diagnosis and follow up with pt, if appropriate. Pt eligible for CR with NSTEMI dx. ANSHU Prather coater helper Outpatient Coordinator Cardiopulmonary Rehab Normal [facility] TROPONIN Ion 07-03-2023 Troponin I.cardiac [Mass/Vol] 0.12 ng/mL Critically high 0.00-0.04 [facility] Comment on above: Result Comment: M-TR OPONIN INITIAL CRITICAL HIGH; RESPUN AND RETESTED Performed By: #### L [id number] ####[facility] ([facility])[address] [place] [address] 30on 07-02-2023 30 The patient is Moderately Stable - Low risk of patient condition declining or worsening The patient's goals for the shift include COMFORT The clinical goals for the shift include VSS Normal [facility] XR lumbar spine AP/LAT/FLX/E XTon 03-13-2023 XR lumbar spine AP/LAT/FLX/EXT [facility] [place] [address] XRay Report Signed Patient: Laura Lawson MR#: [id number] : 1950 Acct:[id number] Age/Sex: 72 / F ADM Date: 03/13/23 Loc: XD Room: Type: [facility] Attending Dr: Abner Roa MD Copies to: [...] degenerative change. Hyperostosis. SOFT TISSUES: Atherosclerosis. BONY MINERALIZATION:Adequate XR/XR lumbar spine AP/LAT/FLX/EXT IMPRESSION: Stable postsurgical and degenerative changes. No hypermobility. Impression dictated by: Amaury Devlin M.D.03/13/2023 3:02 PM Dictation Location: [facility]--14 Transcribed By: [facility] 03/13/23 1502 Dictated By: Amaury Devlin DO 03/13/23 1500 Signed By: 03/13/23 1502 Normal [facility] Office Visiton 02-26-2023 Follow-up visit [id number] Laura Lawson 1950 F Date Provider Department Center 02/26/2023 DULCE SANCHEZ [facility] Family History Problem Relation Age of Onset JABARI disease Mother Heart attack Father Family Status - Relation Status Age at Mother Father Level of Service:03350 [place] OFFICE/OUTPATIENT ESTABLISHED MOD MDM 30-39 MIN Reason for Visit and Comments: Follow-up [568572] - 6 month Normal [facility] MG MAMM SCREEN 3D YANETH CADon 11-06-2022 MG MAMM SCREEN 3D YANETH CAD Patient: LAURA LAWSON Exam Date: 11/06/2022 : 1950 Gender:F Ordering : DR VLAD CESAR M.D. Admission #: [id number] Family : Order #: [id number] CLICK HERE TO VIEW EXAM RADIOLOGY REPORT [...] Treatments None Family Cancers None LOCATION: [facility] BREAST COMPOSITION: Scattered areas fibroglandular density. FINDINGS: [...] Henry Villanueva M.D. on 11/06/2022 at 16:56 Normal [facility] ECHOCARDIO M/2D COMPLETEon 1 07-18-2021 ECHOCARDIO M/2D COMPLETE Patient: LAURA LAWSON Exam Date: 05/17/2022 : 1950 Gender:F Ordering : DR VLAD CESAR M.D. Admission #: [id number] Family : DR JULITO ZENDEJAS M.D. Order #: [id number] CLICK HERE TO VIEW EXAM ECHOCARDIOGRAM REPORT [...] 7.06 mm[Hg] Right Atrium Dictated by: Julito Zendejas M.D. on 05/17/2022 at 18:39 Approved by: Julito Zendejas M.D. on 05/17/2022 at 18:42 Normal [facility] CBC AUTO DIFFon 05-14-2022 BASO # 0.0 103/ul Normal 0.0-0.1 [facility] Comment on above: Performed By: #### C BC #### [facility] [address] [place] [address] Dr. Hieu Horvath Basophils/100 WBC (Bld) 0.5 % Normal 0.2-2.0 [facility] Comment on above: Performed By: #### C BC #### [facility] [address] [place] [address] Dr. Hieu Horvath EO # 0.2 103/ul Normal 0.0-0.7 [facility] Comment on above: Performed By: #### C BC #### [facility] [address] [place] [address] Dr. Hieu Horvath Eosinophils/100 WBC (Bld) 2.5 % Normal 0.9-7.0 [facility] Comment on above: Performed By: #### C BC #### [facility] [address] [place] [address] Dr. Hieu Horvath Erythrocyte distribution width (RBC) [Ratio] 14.0 % Normal 11.0-15.0 [facility] Comment on above: Performed By: #### C BC #### [facility] [address] [place] [address] Dr. Hieu Horvath Hematocrit (Bld) [Volume fraction] 35.5 % Critically low 36.0-48.0 [facility] Comment on above: Performed By: #### C BC #### [facility] [address] [place] [address] Dr. Hieu Horvath Hemoglobin (Bld) [Mass/Vol] 11.5 g/dL Critically low 12.0-16.0 [facility] Comment on above: Performed By: #### C BC #### [facility] [address] [place] [address] Dr. Hieu Horvath IG # 0.02 10e3/ul Normal 0.00-0.03 [facility] Comment on above: Performed By: #### C BC #### [facility] [address] [place] [address] Dr. Hieu Horvath IG % 0.2 % Normal 0.0-0.5 [facility] Comment on above: Performed By: #### C BC #### [facility] [address] [place] [address] Dr. Hieu Horvath LYMPH # 1.6 103/ul Normal 1.2-3.8 [facility] Comment on above: Performed By: #### C BC #### [facility] [address] [place] [address] Dr. Hieu Horvath Lymphocytes/100 WBC (Bld) 19.2 % Critically low 20.5-60.0 [facility] Comment on above: Performed By: #### C BC #### [facility] [address] [place] [address] Dr. Hieu Horvath MANUAL DIFF REQ NO Normal [facility] Comment on above: Performed By: #### C BC #### [facility] [address] [address] [address] Hieu Horvath MCH (RBC) [Entitic mass] 29.9 pg Normal 26.7-34.0 [facility] Comment on above: Performed By: #### C BC #### [facility] [address] [place] [address] Dr. Hieu Horvath MCHC (RBC) [Mass/Vol] 32.4 g/dL Normal 29.9-35.2 [facility] Comment on above: Performed By: #### C BC #### [facility] [address] [address] [address] Hieu Horvath MCV (RBC) [Entitic vol] 92.4 fL Normal 81.0-99.0 [facility] Comment on above: Performed By: #### C BC #### [facility] [address] [place] [address] Dr. Hieu Horvath MONO # 1.1 103/ul Critically high 0.3-0.8 [facility] Comment on above: Performed By: #### C BC #### [facility] [address] [place] [address] Dr. Hieu Horvath Monocytes/100 WBC (Bld) 12.4 % Critically high 1.7-12. 0 [facility] Comment on above: Performed By: #### C BC #### [facility] [address] [place] [address] Dr. Hieu Horvath NEUT # 5.6 103/ul Normal 1.4-6.5 [facility] Comment on above: Performed By: #### C BC #### [facility] [address] [place] [address] Dr. Hieu Horvath Neutrophils/100 WBC (Bld) 65.2 % Normal 43.0-75.0 [facility] Comment on above: Performed By: #### C BC #### [facility] [address] [place] [address] Dr. Hieu Horvath Platelet mean volume (Bld) [Entitic vol] 8.9 fL Critically low 9.5-13.5 [facility] Comment on above: Performed By: #### C BC #### [facility] [address] [place] [address] Dr. Hieu Horvath PLT 342 103/ul Normal 150-450 [facility] Comment on above: Performed By: #### C BC #### [facility] [address] [place] [address] Dr. Hieu Horvath RBC 3.84 106/ul Critically low 4.20-5.40 [facility] Comment on above: Performed By: #### C BC #### [facility] [address] [place] [address] Dr. Hieu Horvath WBC 8.5 103/ul Normal 4.0-11.0 [facility] Comment on above: Performed By: #### C BC #### [facility] [address] [place] [address] Dr. Hieu Horvath CULTURE BLOODon 05-14-2022 Microscopic examination of blood, culture Culture Observations: NO GROWTH AT 5 DAYS. Normal [facility] Comment on above: Performed By: #### B [id number] #### [facility] [address] [place] [address] Dr. Hieu Horvath Performed By: #### B [id number] #### [facility] [address] [place] [address] Dr. Hieu Horvath LACTATE/LACTIC ACIDon 2021 Lactate [Moles/Vol] 1.8 mmol/L Normal 0.4-1.9 [facility] Comment on above: Performed By: #### L ACT #### [facility] [address] [place] [address] Dr. Hieu Horvath PROF CHEM 8 (BAS METB)on Anion gap [Moles/Vol] 10.3 mmol/L Normal [facility] Comment on above: Performed By: #### B MP #### [facility] [address] [place] [address] Dr. Hieu Horvath Calcium [Mass/Vol] 9.8 mg/dL Normal 8.5-10.1 [facility] Comment on above: Performed By: #### B MP #### [facility] [address] [address] [address] Hieu Horvath Chloride [Moles/Vol] 95 mmol/L Critically low 98-107 [facility] Comment on above: Performed By: #### B MP #### [facility] [address] [address] [address] Hieu Horvath CO2 [Moles/Vol] 31.4 mmol/L Normal 21.0-32.0 [facility] Comment on above: Performed By: #### B MP #### [facility] [address] [address] [address] Hieu Horvath Creatinine [Mass/Vol] 1.13 mg/dL Critically high 0.55-1.02 [facility] Comment on above: Performed By: #### B MP #### [facility] [address] [address] [address] Hieu Horvath EGFR-AF [place] 58 mL/min/1.73m2 Critically low >=60 [facility] Comment on above: Performed By: #### B MP #### [facility] [address] [address] [address] Hieu Horvath EGFR-NON AF [place] 48 mL/min/1.73m2 Critically low >=60 [facility] Comment on above: Performed By: #### B MP #### [facility] [address] [address] [address] Hieu Horvath Glucose [Mass/Vol] 370 mg/dL Critically high 74-106 [facility] Comment on above: Performed By: #### B MP #### [facility] [address] [address] [address] Hieu Horvath Potassium [Moles/Vol] 3.7 mmol/L Normal 3.5-5.1 [facility] Comment on above: Performed By: #### B MP #### [facility] [address] [address] [address] Hieu Horvath Sodium [Moles/Vol] 133 mmol/L Critically low 136-145 [facility] Comment on above: Performed By: #### B MP #### [facility] [address] [place], [place] [address] Dr. Hieu Horvath Urea nitrogen [Mass/Vol] 29.0 mg/dL Critically high 7.0-18.0 [facility] Comment on above: Performed By: #### B MP #### [facility] [address] [place], [place] [address] Dr. Hieu Horvath Urea nitrogen/Creatinine [Mass ratio] 25.7 mg/mg Normal [facility] Comment on above: Performed By: #### B MP #### [facility] [address] [place], [place] [address] Dr. Hieu Horvath US JAKE DOP LEG [...] RUSSELL YATES Date: 2022-05-14 17:04 Normal [facility] Glucose Glucometer (BldC) [M ass/Vol]Ordered By: Chidi Bowen on 04-03-2022 Glucose [Mass/Vol] 187 mg/dL [facility] Comment on above: Random Glucose Refer ence Range is dependent on time and content of last meal. Glucose of more than 200 mg/dL in a nonstressed, ambulatory subject supports the diagnosis of Diabetes Mellitus. No Panel InformationOrdered By: Chidi Bowen on 04-03-2022 Bedside Glucose Comment Glu2: cleaned meter [facility] No Panel InformationOrdered By: Chidi Bowen on 03-28-2022 Bedside Glucose #[address]/kendall [facility] Glucose mean value [Mass/vol ume] in Blood Estimated from glycated hemoglobinOrdered By: Tuyet Burks on 03-24-2022 Average glucose Estimated from glycated hemoglobin (Bld) [Mass/Vol] 203 mg/dL [facility] Hemoglobin A1c percentageOrd ered By: Tuyet Burks on 03-24-2022 HbA1c (Bld) [Mass fraction] 8.7 % 4.3-5.6 [facility] Comment on above: Increased risk for d iabetes: 5.7 - 6.4diabetes: >6.4glycemic control for adults with diabetes: <7.0 Albumin [Mass/volume] in Ser um or PlasmaOrdered By: Chidi Bowen on 03-23-2022 Albumin [Mass/Vol] 2.9 g/dL 3.2-5.5 [facility] Basophils Auto (Bld) [#/Vol] Ordered By: Chidi Bowen on 03-23-2022 Basophils (Bld) [#/Vol] 0.0 10*3/uL 0.0-0.2 [facility] Basophils/100 WBC Auto (Bld) Ordered By: Chidi Bowen on 03-23-2022 Basophils/100 WBC (Bld) 0.4 % . [facility] Creatinine and Glomerular fi ltration rate.predicted panel (S/P/Bld)Ordered By: Chidi Bowen on 03-23-2022 Creatinine [Mass/Vol] 0.97 mg/dL 0.44-1.03 [facility] Eosinophils Auto (Bld) [#/Vo l]Ordered By: Chidi Bowen on 03-23-2022 Eosinophils (Bld) [#/Vol] 0.1 10*3/uL 0.0-0.45 [facility] Eosinophils/100 WBC Auto (Bl d)Ordered By: Chidi Bowen on 03-23-2022 Eosinophils/100 WBC (Bld) 1.1 % . [facility] Erythrocyte distribution wid th Auto (RBC) [Ratio]Ordered By: Chidi Bowen on 03-23-2022 Erythrocyte distribution width (RBC) [Ratio] 14.2 % 11.9-15.3 [facility] Estimated glomerular filtrat ion rate (GFR) non- AmericanOrdered By: Chidi Bowen on 03-23-2022 GFR/1.73 sq M.predicted among non-blacks MDRD (S/P/Bld) [Vol rate/Area] 57 mL/Min [facility] Globulin Calc (S) [Mass/Vol] Ordered By: Chidi Bowen on 03-23-2022 Globulin (S) [Mass/Vol] 2.7 g/dL [facility] Hematocrit Auto (Bld) [Volum e fraction]Ordered By: Chidi Bowen on 03-23-2022 Hematocrit (Bld) [Volume fraction] 33.0 % 34.0-46.4 [facility] Hemoglobin [Mass/volume] in BloodOrdered By: Chidi Bowen on 03-23-2022 Hemoglobin (Bld) [Mass/Vol] 10.9 g/dL 11.8-15.4 [facility] - Hematology and Cell countsOrdered By: Chidi Bowen on 03-23-2022 Nucleated RBC/100 WBC (Bld) [Ratio] 0.1 % 0-0.5 [facility] Leukocytes [#/volume] in Blo od by Automated countOrdered By: Chidi Bowen on 03-23-2022 WBC (Bld) [#/Vol] 12.0 10*3/uL 4.5-11.0 [facility] Lymphocytes Auto (Bld) [#/Vo l]Ordered By: Chidi Bowen on 03-23-2022 Lymphocytes (Bld) [#/Vol] 1.8 10*3/uL 1.00-4.8 [facility] Lymphocytes/100 WBC Auto (Bl d)Ordered By: Chidi Bowen on 03-23-2022 Lymphocytes/100 WBC (Bld) 15.0 % . [facility] MCH Auto (RBC) [Entitic mass ]Ordered By: Chidi Bowen on 03-23-2022 MCH (RBC) [Entitic mass] 30.3 pg 24.7-34.3 [facility] MCHC Auto (RBC) [Mass/Vol]Or dered By: Chidi Bowen on 03-23-2022 MCHC (RBC) [Mass/Vol] 33.2 g/dL 32.0-35.0 [facility] MCV Auto (RBC) [Entitic vol] Ordered By: Chidi Bowen on 03-23-2022 MCV (RBC) [Entitic vol] 91.4 fL 80-100 [facility] Monocytes Auto (Bld) [#/Vol] Ordered By: Chidi Bowen on 03-23-2022 Monocytes (Bld) [#/Vol] 1.2 10*3/uL 0.0-0.8 [facility] Monocytes/100 WBC Auto (Bld) Ordered By: Chidi Bowen on 03-23-2022 Monocytes/100 WBC (Bld) 9.8 % . [facility] Neutrophils Auto (Bld) [#/Vo l]Ordered By: Chidi Bowen on 03-23-2022 Neutrophils (Bld) [#/Vol] 8.9 10*3/uL 1.8-7.7 [facility] Neutrophils/100 WBC Auto (Bl d)Ordered By: Chidi Bowen on 03-23-2022 Neutrophils/100 WBC (Bld) 73.7 % . [facility] No Panel InformationOrdered By: Chidi Bowen on 03-23-2022 Estimated GFR () > 60 mL/Min [facility] Comment on above: GFR estimated refere nce range: According to KDOQI guidelines, <60 ml/min/1.73m2 is sufficient to diagnose a patient with chronic kidney disease. Pharmacy Creatinine Clearance (Chem 67.19 [facility] Platelet mean volume Auto (B ld) [Entitic vol]Ordered By: Chidi Bowen on 03-23-2022 Platelet mean volume (Bld) [Entitic vol] 7.3 fL 6.3-10.7 [facility] Platelets Auto (Bld) [#/Vol] Ordered By: Chidi Bowen on 03-23-2022 Platelets (Bld) [#/Vol] 309 10*3/uL 150-450 [facility] Protein [Mass/volume] in Ser um or PlasmaOrdered By: Chidi Bowen on 03-23-2022 Protein [Mass/Vol] 5.6 g/dL 6.1-7.9 [facility] RBC Auto (Bld) [#/Vol]Ordere d By: Chidi Bowen on 03-23-2022 RBC (Bld) [#/Vol] 3.61 10*6/uL 3.60-5.00 [facility] Serum or plasma alanine ng otransferase measurement without P-5'-P (enzymatic activiOrdered By: Chidi Bowen on 03-23-2022 ALT No additional P-5'-P [Catalytic activity/Vol] 28 U/L 1060 [facility] Serum or plasma albumin/glob ulin mass ratioOrdered By: Chidi Bowen on 03-23-2022 Albumin/Globulin [Mass ratio] 1.1 {ratio} [facility] Serum or plasma alkaline areli sphatase measurement (enzymatic activity/volume)Ordered By: Chidi Bowen on 03-23-2022 ALP [Catalytic activity/Vol] 57 U/L 32-92 [facility] Serum or plasma anion gap de terminationOrdered By: Chidi Bowen on 03-23-2022 Anion gap [Moles/Vol] 10.9 mmol/L 6.0-15.0 [facility] Serum or plasma aspartate am inotransferase measurement (enzymatic activity/volume)Ordered By: Chidi Bowen on 03-23-2022 AST [Catalytic activity/Vol] 26 U/L 10 [facility] Serum or plasma calcium annabel urement (mass/volume)Ordered By: Chidi Bowen on 03-23-2022 Calcium [Mass/Vol] 10.0 mg/dL 8.2-10.2 [facility] Serum or plasma chloride meagan surement (moles/volume)Ordered By: Chidi Bowen on 03-23-2022 Chloride [Moles/Vol] 100 mmol/L 95-114 [facility] Serum or plasma glucose annabel urement (mass/volume)Ordered By: Chidi Bowen on 03-23-2022 Glucose [Mass/Vol] 101 mg/dL 70-100 [facility] Comment on above: ADA recommended refe rence rangeRandom Glucose Reference Range is dependent on time and content of last meal. Glucose of more than 200 mg/dL in a nonstressed, ambulatory subject supports the diagnosis of Diabetes Mellitus. Serum or plasma potassium me asurement (moles/volume)Ordered By: Chidi Bowen on 03-23-2022 Potassium [Moles/Vol] 3.6 mmol/L 3.5-5.1 [facility] Serum or plasma prealbumin m easurement (mass/volume)Ordered By: Chidi Bowen on 03-23-2022 Prealbumin [Mass/Vol] 16.4 mg/dL 18.0-38.0 [facility] Serum or plasma sodium measu rement (moles/volume)Ordered By: Chidi Bowen on 03-23-2022 Sodium [Moles/Vol] 137 mmol/L 136-146 [facility] Serum or plasma total biliru bin measurement (mass/volume)Ordered By: Chidi Bowen on 03-23-2022 Bilirubin [Mass/Vol] 0.6 mg/dL 0.3-1.2 [facility] Serum or plasma total carbon dioxide measurement (moles/volume)Ordered By: Chidi Bowen on 03-23-2022 CO2 [Moles/Vol] 29.7 mmol/L 22.0-30.0 [facility] Serum or plasma urea nitroge n measurement (mass/volume)Ordered By: Chidi Bowen on 03-23-2022 Urea nitrogen [Mass/Vol] 46 mg/dL 9-23 [facility] Glucose Glucometer (BldC) [M ass/Vol]Ordered By: Abner Roa on 03-22-2022 Glucose [Mass/Vol] 183 mg/dL [facility] Comment on above: Random Glucose Refer ence Range is dependent on time and content of last meal. Glucose of more than 200 mg/dL in a nonstressed, ambulatory subject supports the diagnosis of Diabetes Mellitus. No Panel InformationOrdered By: Abner Roa on 03-22-2022 Bedside Glucose Comment Glu2: cleaned meter [facility] COVID-19 Positive/NegativeOr dered By: Abner Roa on 03-20-2022 SARS-CoV-2 (COVID-19) N gene GUS+probe Ql (Resp) Negative Negative [facility] Comment on above: Testing for SARS-CoV -2 by RT-PCRThis test was developed and its performance characteristics determined by [employer] ([place]) and validated at the [facility]. This test has not been FDA cleared [...] Bedside Glucose #[address]/rn [facility] COVID-19 Positive/NegativeOr dered By: Abner Roa on 03-14-2022 SARS-CoV-2 (COVID-19) N gene GUS+probe Ql (Resp) Negative Negative [facility] Comment on above: Testing for SARS-CoV -2 by RT-PCRThis test was developed and its performance characteristics determined by [employer] ([place] and validated at the [facility]. This test has not been FDA cleared [...] 03-05-2022 Basophils (Bld) [#/Vol] 0.0 10*3/uL 0.0-0.2 [facility] Basophils/100 WBC Auto (Bld) Ordered By: Abner Roa on 03-05-2022 Basophils/100 WBC (Bld) 0.4 % . [facility] Blood hemoglobin measurement (mass/volume)Ordered By: Abner Roa on 03-05-2022 Hemoglobin (Bld) [Mass/Vol] 11.8 g/dL 11.8-15.4 [facility] Blood leukocytes automated c ount (number/volume)Ordered By: Abner Roa on 03-05-2022 WBC (Bld) [#/Vol] 9.2 10*3/uL 4.5-11.0 [facility] Creatinine and Glomerular fi ltration rate.predicted panel (S/P/Bld)Ordered By: Abner Roa on 03-05-2022 Creatinine [Mass/Vol] 0.93 mg/dL 0.44-1.03 [facility] Eosinophils Auto (Bld) [#/Vo l]Ordered By: Abner Roa on 03-05-2022 Eosinophils (Bld) [#/Vol] 0.1 10*3/uL 0.0-0.45 [facility] Eosinophils/100 WBC Auto (Bl d)Ordered By: Abner Roa on 03-05-2022 Eosinophils/100 WBC (Bld) 1.4 % . [facility] Erythrocyte distribution wid th Auto (RBC) [Ratio]Ordered By: Abner Roa on 03-05-2022 Erythrocyte distribution width (RBC) [Ratio] 14.3 % 11.9-15.3 [facility] Estimated glomerular filtrat ion rate (GFR) non- AmericanOrdered By: Abner Roa on 03-05-2022 GFR/1.73 sq M.predicted among non-blacks MDRD (S/P/Bld) [Vol rate/Area] 60 mL/Min [facility] Hematocrit Auto (Bld) [Volum e fraction]Ordered By: Abner Roa on 03-05-2022 Hematocrit (Bld) [Volume fraction] 35.6 % 34.0-46.4 [facility] Laboratory - Hematology and Cell countsOrdered By: Abner Roa on 03-05-2022 Nucleated RBC/100 WBC (Bld) [Ratio] 0.0 % 0-0.5 [facility] Lymphocytes Auto (Bld) [#/Vo l]Ordered By: Abner Roa on 03-05-2022 Lymphocytes (Bld) [#/Vol] 1.4 10*3/uL 1.00-4.8 [facility] Lymphocytes/100 WBC Auto (Bl d)Ordered By: Abner Roa on 03-05-2022 Lymphocytes/100 WBC (Bld) 15.4 % . [facility] MCH Auto (RBC) [Entitic mass ]Ordered By: Abner Roa on 03-05-2022 MCH (RBC) [Entitic mass] 30.4 pg 24.7-34.3 [facility] MCHC Auto (RBC) [Mass/Vol]Or dered By: Abner Roa on 03-05-2022 MCHC (RBC) [Mass/Vol] 33.2 g/dL 32.0-35.0 [facility] MCV Auto (RBC) [Entitic vol] Ordered By: Abner Roa on 03-05-2022 MCV (RBC) [Entitic vol] 91.7 fL 80-100 [facility] Monocytes Auto (Bld) [#/Vol] Ordered By: Abner Roa on 03-05-2022 Monocytes (Bld) [#/Vol] 0.8 10*3/uL 0.0-0.8 [facility] Monocytes/100 WBC Auto (Bld) Ordered By: Abner Roa on 03-05-2022 Monocytes/100 WBC (Bld) 9.2 % . [facility] Neutrophils Auto (Bld) [#/Vo l]Ordered By: Abner Roa on 03-05-2022 Neutrophils (Bld) [#/Vol] 6.8 10*3/uL 1.8-7.7 [facility] Neutrophils/100 WBC Auto (Bl d)Ordered By: Abner Roa on 03-05-2022 Neutrophils/100 WBC (Bld) 73.6 % . [facility] No Panel InformationOrdered By: Abner Roa on 03-05-2022 Estimated GFR () > 60 mL/Min [facility] Comment on above: GFR estimated refere nce range: According to KDOQI guidelines, <60 ml/min/1.73m2 is sufficient to diagnose a patient with chronic kidney disease. Pharmacy Creatinine Clearance (Chem N/A [facility] Platelet mean volume Auto (B ld) [Entitic vol]Ordered By: Abner Roa on 03-05-2022 Platelet mean volume (Bld) [Entitic vol] 7.5 fL 6.3-10.7 [facility] Platelets Auto (Bld) [#/Vol] Ordered By: Abner Roa on 03-05-2022 Platelets (Bld) [#/Vol] 285 10*3/uL 150-450 [facility] RBC Auto (Bld) [#/Vol]Ordere d By: Abner Roa on 03-05-2022 RBC (Bld) [#/Vol] 3.88 10*6/uL 3.60-5.00 [facility] Serum or plasma anion gap de terminationOrdered By: Abner Roa on 03-05-2022 Anion gap [Moles/Vol] 14.8 mmol/L 6.0-15.0 [facility] Serum or plasma calcium annabel urement (mass/volume)Ordered By: Abner Roa on 03-05-2022 Calcium [Mass/Vol] 10.1 mg/dL 8.2-10.2 [facility] Serum or plasma chloride meagan surement (moles/volume)Ordered By: Abner Roa on 03-05-2022 Chloride [Moles/Vol] 99 mmol/L 95-114 [facility] Serum or plasma glucose annabel urement (mass/volume)Ordered By: Abner Roa on 03-05-2022 Glucose [Mass/Vol] 206 mg/dL 70-100 [facility] Comment on above: ADA recommended refe rence rangeRandom Glucose Reference Range is dependent on time and content of last meal. Glucose of more than 200 mg/dL in a nonstressed, ambulatory subject supports the diagnosis of Diabetes Mellitus. Serum or plasma potassium me asurement (moles/volume)Ordered By: Abner Roa on 03-05-2022 Potassium [Moles/Vol] 4.5 mmol/L 3.5-5.1 [facility] Serum or plasma sodium measu rement (moles/volume)Ordered By: Abner Roa on 03-05-2022 Sodium [Moles/Vol] 136 mmol/L 136-146 [facility] Serum or plasma total carbon dioxide measurement (moles/volume)Ordered By: Abner Roa on 03-05-2022 CO2 [Moles/Vol] 26.7 mmol/L 22.0-30.0 [facility] Serum or plasma urea nitroge n measurement (mass/volume)Ordered By: Abner Roa on 03-05-2022 Urea nitrogen [Mass/Vol] 20 mg/dL 03-01 [facility] Diabetic Self Management Reji simon 03-17-2020 Diabetic Self Management Education [id number] CD:[address] [facility] Coding Summary.on 04-08-2019 Coding Summary. CODING DATE: 019 [facility] STATUS: PAYOR: Medicare ADMIT DX: REASON FOR [...] Theodore CphT Date Saved: 04/08/2019 02:[address] [facility] Vital Signs Date Time Vital Sign Value Performing Clinician Facility 10-23-2023 [id number] Body height 162.56 cm II Vlad Cesar Work Phone: [facility] 10-23-2023 10:33-0400 Body mass index (BMI) [Ratio] 38.6 kg/m2 II Vlad Cesar Work Phone: [facility] 10-23-2023 [id number] Body weight 102 kg II Vlad Cesar Work Phone: [facility] 08-19-2023 11:27-040 Body height 157.5 cm Robbi Uribe MD Work Phone: [facility] 08-19-2023 11:27-0400 Body mass index (BMI) [Ratio] 41.15 kg/m2 Robbi Uribe MD Work Phone: [facility] 08-19-2023 11:27-0400 Body weight 102.06 kg Robbi Uribe MD Work Phone: [facility] 08-19-2023 11:27-0400 Diastolic blood pressure 58 mm[Hg] Robbi Uribe MD Work Phone: [facility] 08-19-2023 11:27-0400 Heart rate 63 /min Robbi Uribe MD Work Phone: [facility] 08-19-2023 11:27-0400 Systolic blood pressure 149 mm[Hg] Robbi Uribe MD Work Phone: [facility] 07-21-2023 10:26-0500 Body height 158.8 cm Vlad Cesar MD Work Phone: [facility] 07-21-2023 10:26-0500 Body mass index (BMI) [Ratio] 41.22 kg/m2 Vlad Cesar MD Work Phone: [facility] 07-21-2023 10:26-0500 Body weight 103.87 kg Vlad Cesar MD Work Phone: [facility] 07-21-2023 10:26-0500 Diastolic blood pressure 82 mm[Hg] Vlad Cesar MD Work Phone: [facility] 07-21-2023 10:26-0500 Heart rate 66 /min Vlad Cesar MD Work Phone: [facility] 07-21-2023 10:26-0500 SaO2% (BldA) [Mass fraction] 98 % Vlad Cesar MD Work Phone: [facility] 07-21-2023 10:26-0500 Systolic blood pressure 136 mm[Hg] Vlad Cesar MD Work Phone: [facility] 03-13-2023 10:20-0400 Body height 162.56 cm Abner Roa Other [employer] Other 03-13-2023 10:20-0400 Body mass index (BMI) [Ratio] 45.83 kg/m2 Abner Roa Other [employer] Other 03-13-2023 10:20-0400 Body weight 121.11 kg Abner Roa Other [employer] Other 09-12-2022 10:40-0400 Body height 162.56 cm Abner Roa Other [employer] Other 09-12-2022 10:40-0400 Body mass index (BMI) [Ratio] 42.05 kg/m2 Abner Roa Other [employer] Other 09-12-2022 10:40-0400 Body weight 111.13 kg Abner Roa Other [employer] Other 09-12-2022 10:40-0400 Diastolic blood pressure 80 mm[Hg] Abner Roa Other [employer] Other 09-12-2022 10:40-0400 Systolic blood pressure 128 mm[Hg] Abner Roa Other [employer] Other 06-13-2022 16:20-0500 Body height 162.56 cm Abner Roa Other [employer] Other 06-13-2022 16:20-0500 Body mass index (BMI) [Ratio] 42.91 kg/m2 Abner Roa Other [employer] Other 06-13-2022 16:20-0500 Body weight 113.4 kg Abner Roa Other [employer] Other 04-18-2022 12:00-0500 Body height 162.56 cm Abner Roa Other [employer] Other 04-18-2022 12:00-0500 Body mass index (BMI) [Ratio] 42.74 kg/m2 Abner Roa Other [employer] Other 04-18-2022 12:00-0500 Body weight 112.95 kg Abner oRa Other [employer] Other 04-03-2022 13:01-0400 Body temperature 97.7 [degF] II Vlad Cesar Work Phone: [facility] 04-03-2022 13:01-0400 Diastolic blood pressure 66 mm[Hg] II Vlad Cesar Work Phone: [facility] 04-03-2022 13:01-0400 Heart rate 61 /min II Vlad Cesar Work Phone: [facility] 04-03-2022 13:01-0400 Respiratory rate 20 /min II Vlad Cesar Work Phone: [facility] 04-03-2022 13:01-0400 SaO2% (BldA) [Mass fraction] 96 % II Vlad Cesar Work Phone: [facility] 04-03-2022 13:01-0400 Systolic blood pressure 149 mm[Hg] II Vlad Cesar Work Phone: [facility] 04-03-2022 07:05-0400 Body height 160.02 cm II Vlad Cesar Work Phone: [facility] 03-31-2022 06:02-0400 Body weight 115.1 kg II Vlad Cesar Work Phone: [facility] 03-22-2022 14:02-0400 Diastolic blood pressure 73 mm[Hg] II Vlad Cesar Work Phone: [facility] 03-22-2022 14:02-0400 Systolic blood pressure 134 mm[Hg] II Vlad Cesar Work Phone: [facility] 03-22-2022 11:12-0400 Body temperature 97.6 [degF] II Vlad Cesar Work Phone: [facility] 03-22-2022 11:12-0400 Heart rate 66 /min II Vlad Cesar Work Phone: [facility] 03-22-2022 11:12-0400 Respiratory rate 16 /min II Vlad Cesar Work Phone: [facility] 03-22-2022 11:12-0400 SaO2% (BldA) [Mass fraction] 95 % II Vlad Cesar Work Phone: [facility] 03-22-2022 06:41-0400 Body weight 116 kg II Vlad Cesar Work Phone: [facility] 03-20-2022 17:30-0400 Inhaled oxygen flow rate 2 L/min II Vlad Cesar Work Phone: [facility] 03-19-2022 09:55-0400 Body height 160.02 cm II Vlad Cesar Work Phone: [facility] 03-18-2022 08:15-0400 Body mass index (BMI) [Ratio] 44.5 kg/m2 II Vlad Cesar Work Phone: [facility] 01-15-2022 14:40-0400 Body height 162.56 cm Abner Roa Other [employer] Other 01-15-2022 14:40-0400 Body mass index (BMI) [Ratio] 42.74 kg/m2 Abner Roa Other [employer] Other 01-15-2022 14:40-0400 Body weight 112.95 kg Abner Roa Other [employer] Other 12-07-2021 12:30-0400 Body height 162.56 cm Devang Saavedra Other [employer] Other 12-07-2021 12:30-0400 Body mass index (BMI) [Ratio] 42.74 kg/m2 Devang Keri Other [employer] Other 12-07-2021 12:30-0400 Body weight 112.95 kg Devang Keri Other [employer] Other 12-07-2021 12:30-0400 Diastolic blood pressure 76 mm[Hg] Devang Keri Other [employer] Other 12-07-2021 12:30-0400 Systolic blood pressure 132 mm[Hg] Devang Keri Other [employer] Other 12-06-2021 16:00-0400 Body height 162.56 cm Abner Roa Other [employer] Other 12-06-2021 16:00-0400 Body mass index (BMI) [Ratio] 43.59 kg/m2 Abner Roa Other [employer] Other 12-06-2021 16:00-0400 Body weight 115.21 kg Abner Roa Other [employer] Other 11-08-2021 17:15-0400 Body weight 115.21 kg Devang Saavedra Other [employer] Other 11-08-2021 17:15-0400 Diastolic blood pressure 72 mm[Hg] Devang Keri Other [employer] Other 11-08-2021 17:15-0400 SaO2% (BldA) [Mass fraction] 98 % Devang Keri Other [employer] Other 11-08-2021 17:15-0400 Systolic blood pressure 136 mm[Hg] Devang Keri Other [employer] Other 10-24-2021 17:15-0400 Body weight 115.21 kg Devangolga Saavedra Other [employer] Other 10-24-2021 17:15-0400 Diastolic blood pressure 70 mm[Hg] Devang Keri Other [employer] Other 10-24-2021 17:15-0400 Systolic blood pressure 116 mm[Hg] Devang Keri Other [employer] Other 10-15-2021 11:45-0400 Body weight 120.57 kg Devang Saavedra Other [employer] Other 10-15-2021 11:45-0400 Diastolic blood pressure 66 mm[Hg] Devang Keri Other [employer] Other 10-15-2021 11:45-0400 SaO2% (BldA) [Mass fraction] 93 % Devang Saavedra Other [employer] Other 10-15-2021 11:45-0400 Systolic blood pressure 124 mm[Hg] Devang Keri Other [employer] Other 09-25-2021 11:30-0400 Body weight 121.47 kg Devang Saavedra Other [employer] Other 09-25-2021 11:30-0400 Diastolic blood pressure 62 mm[Hg] Devang Keri Other [employer] Other 09-25-2021 11:30-0400 SaO2% (BldA) [Mass fraction] 97 % Devang Saavedra Other [employer] Other 09-25-2021 11:30-0400 Systolic blood pressure 138 mm[Hg] Devang Keri Other [employer] Other Encounters Encounter Date Encounter Type Care Provider Facility Start: 11-24-2023 End: 11-24-2023 ambulatory VLAD CESAR Not Available Start: 10-23-2023 End: 10-23-2023 ambulatory Abner Roa Facility:[facility] Start: 10-23-2023 End: 10-23-2023 ambulatory II Vlad Cesar Work Phone: [facility] Work Phone: Start: 10-23-2023 End: 10-23-2023 Patient encounter procedure II Vlad Cesar Work Phone: [facility] Work Phone: Start: 10-14-2023 End: 10-14-2023 [facility] Start: 10-08-2023 Evaluation and management of inpatient [facility] Start: 10-08-2023 ambulatory [facility] Start: 10-08-2023 End: 10-09-2023 Evaluation and management of inpatient [facility] Start: 10-01-2023 End: 10-01-2023 ambulatory MYA CISSE Not Available Start: 09-26-2023 End: 09-26-2023 ambulatory [facility] Start: 09-24-2023 End: 09-24-2023 ambulatory VLAD CESAR Not Available Start: 09-09-2023 Evaluation and management of inpatient JOSHUA [facility] Start: 09-09-2023 ambulatory JULITO bonilla [facility] Start: 09-09-2023 End: 09-10-2023 Evaluation and management of inpatient JOSHUA GRIDER [facility] Start: 09-04-2023 Telephone encounter [facility] Comment on above: NEW PATIENT REFERRAL Start: 08-19-2023 End: 08-19-2023 ambulatory ROBBI RONY [facility] Start: 08-19-2023 End: 08-19-2023 Office outpatient visit 25 minutes Robbi Uribe MD Work Phone: [facility] Comment on above: TIA (transient ische bibi attack) (Primary Dx); Bilateral carpal tunnel syndrome Start: 07-31-2023 End: 07-31-2023 ambulatory [facility] Start: 07-21-2023 End: 07-21-2023 Transitional care manage srvc 14 day discharge Vlad Cesar MD Work Phone: [facility] Comment on above: COVID (Primary Dx); NSTEMI (non-ST elevated myocardial infarction) ([facility]/HCC); Acute on chronic diastolic heart failure ([facility]/HCC); Type 2 diabetes mellitus with hyperglycemia, with long-term current use of insulin ([facility]/HCC); 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); Morbid (severe) obesity due to excess calories (E66.01); Body mass index [BMI] 45.0-49.9, adult (Z68.42); Atherosclerosis of [place] coronary artery of [place] heart with angina pectoris (CMS/HCC) Start: 07-21-2023 End: 07-21-2023 ambulatory VLAD CESAR Not Available Start: 07-16-2023 End: 07-16-2023 ambulatory [facility] Start: 07-08-2023 Telephone encounter Tasha [facility] Start: 07-07-2023 End: 07-07-2023 [facility] Start: 07-04-2023 Evaluation and management of inpatient ANGELIKA DANIELLE [facility] Start: 07-04-2023 Evaluation and management of inpatient DALE ACOSTA [facility] Start: 07-04-2023 Evaluation and management of inpatient DALE ACOSTA [facility] Start: 07-03-2023 Evaluation and management of inpatient IVORY GARRETT [facility] Start: 07-02-2023 End: 07-07-2023 Evaluation and management of inpatient SHAWNA LEBLANC [facility] Start: 06-26-2023 End: 06-26-2023 ambulatory MYA BINGHAMTEJAS Not Available Start: 06-25-2023 End: 06-25-2023 ambulatory VLAD CESAR Not Available Start: 04-21-2023 End: 04-21-2023 ambulatory VLAD CESAR Not Available Start: 03-13-2023 Office outpatient vi sit 15 minutes Abner Roa [facility] Start: 03-13-2023 End: 03-13-2023 ambulatory Abner Roa Facility:[facility] Start: 03-13-2023 End: 03-13-2023 ambulatory II Vlad Cesar Work Phone: [facility] Work Phone: Start: 03-13-2023 End: 03-13-2023 Patient encounter procedure II Vlad Cesar Work Phone: [facility] Work Phone: Start: 02-26-2023 End: 02-26-2023 ambulatory DULCE GARCIA [facility] Start: 12-12-2022 End: 12-12-2022 ambulatory Abner Roa Facility:[facility] Start: 11-06-[address] VLAD CESAR Facilit y:[facility] Start: 09-12-2022 Office outpatient vi sit 15 minutes Abner Roa [facility] Start: 09-12-2022 End: 09-12-2022 ambulatory II Vlad Cesar Work Phone: [facility] Work Phone: Start: 09-12-2022 End: 09-12-2022 Patient encounter procedure II Vlad Cesar Work Phone: [facility] [place] Work Phone: Start: 06-13-2022 End: 06-13-2022 Patient encounter procedure II Vlad Cesar Work Phone: [facility] [place] Work Phone: Start: 06-13-2022 End: 06-13-2022 ambulatory II Vlad Cesar Work Phone: [facility] Work Phone: Start: 06-13-2022 Postop follow up vis it related to original px Abner Roa [facility] Start: 05-17-2022 End: 05-18-[address] VLAD CESAR Facility:[facility] Start: 05-14-2022 End: 05-14-[address] VLAD CESAR Facility:[facility] Start: 05-09-2022 End: 05-09-2022 ambulatory II Vlad Cesar Work Phone: [facility] Work Phone: Start: 05-09-2022 End: 05-09-2022 Discharged Recurring II Vlad Cesar Work Phone: [facility] [place] Work Phone: Start: 05-09-2022 Registered Recurring II Vlad Cesar Work Phone: [facility] [place] Work Phone: Start: 04-18-2022 End: 04-18-2022 ambulatory Abner Roa Other [facility] [employer] Other Start: 04-18-2022 Postop follow up vis it related to original px Abner Roa [facility] Start: 04-09-2022 End: 04-09-2022 ambulatory II Vladjason Cesar Work Phone: [facility] Work Phone: Start: 04-09-2022 End: 04-09-2022 Patient encounter procedure II Vlad Cesar Work Phone: [facility] Start: 03-22-2022 End: 04-03-2022 Evaluation and management of inpatient II Vlad Cesar Work Phone: [facility] Start: 03-18-2022 Admission to [facility] Abner Roa [facility] Start: 03-18-2022 End: 03-18-2022 ambulatory Abner Roa Other [facility] [employer] Other Start: 03-18-2022 End: 03-22-2022 Evaluation and management of inpatient II Vlad Cesar Work Phone: [facility] Start: 03-14-2022 End: 03-14-2022 ambulatory II Vlad Cesar Work Phone: [facility] Work Phone: Start: 03-14-2022 End: 03-14-2022 Patient encounter procedure II Vlad Cesar Work Phone: [facility] Start: 03-05-2022 End: 03-05-2022 ambulatory II Vlad Cesar Work Phone: [facility] Work Phone: Start: 03-05-2022 End: 03-05-2022 Patient encounter procedure II Vlad Cesar Work Phone: [facility] Start: 01-15-2022 End: 01-15-2022 ambulatory Abner Roa Other [facility] [employer] Other Start: 01-15-2022 Office outpatient vi sit 40 minutes Abner Roa [facility] Start: 01-09-2022 End: 01-09-2022 Patient encounter procedure MD [facility] Start: 01-07-2022 End: 01-07-2022 ambulatory Devang Keri Other [employer] Other Start: 01-07-2022 Telephone encounter Devang Keri [facility] Start: 01-03-2022 End: 01-03-2022 Patient encounter procedure MD Abner Roa Work Phone: [facility] [place] [facility] Main [place] Start: 12-07-2021 End: 12-07-2021 ambulatory Devang Keri Other [employer] Other Start: 12-07-2021 Office outpatient vi sit 25 minutes Devang Keri [facility] [place] Start: 12-06-2021 End: 12-06-2021 ambulatory Abner Roa Other [employer] Other Start: 12-06-2021 Office outpatient ne w 30 minutes Abner Roa [facility] Start: 11-09-2021 End: 11-09-2021 ambulatory Abner Roa Other [employer] Other Start: 11-09-2021 Telephone encounter Abner Roa [facility] Start: 11-08-2021 End: 11-08-2021 ambulatory Devang Keri Other [employer] Other Start: 11-08-2021 Office outpatient vi sit 25 minutes Devang Keri [facility] Start: 10-24-2021 End: 10-24-2021 ambulatory Devang Keri Other [employer] Other Start: 10-24-2021 Office outpatient vi sit 25 minutes Devang Keri [facility] Start: 10-15-2021 End: 10-15-2021 ambulatory Devang Keri Other [employer] Other Start: 10-15-2021 Office outpatient vi sit 25 minutes Devang Keri [facility] Start: 10-04-2021 (Procedure) Short Devang Saavedra [facility] Start: 10-04-2021 End: 10-04-2021 ambulatory Devang Saavedra Other [employer] Other Start: 09-25-2021 End: 09-25-2021 ambulatory Devang Saavedra Other [employer] Other Start: 09-25-2021 Office outpatient ne w 45 minutes Devang Saavedra [facility] Start: 08-18-2018 End: 08-19-2018 Patient encounter procedure DEFAULT PHYSICIAN Facility:[facility] Start: 08-17-2018 End: 08-18-2018 Patient encounter procedure DEFAULT PHYSICIAN Facility:[facility] Procedures Date Procedure Procedure Detail Performing Clinician Start: 10-23-2023 X-ray of lumbar spine, four views II Vlad Cesar Work Phone: Start: 08-19-2023 Adult depression screening assessment Robbi Uribe MD Work Phone: Start: 03-13-2023 X-ray of lumbar spine, four views II Vlad Cesar Work Phone: Start: 01-13-2023 History of placement of stent for coronary artery disease S/P drug eluting coronary stent placement Vlad Cesar MD Work Phone: Start: 11-06-2022 Mammography Vlad Cesar MD Work Phone: Start: 09-12-2022 X-ray of lumbar spine, four views II Vlad Cesar Work Phone: Start: 06-13-2022 X-ray of lumbar spine, four views II Vlad Cesar Work Phone: Start: 04-09-2022 X-ray of lumbar spine, two or three views MARK Cesar Work Phone: Start: 03-24-2022 Duplex scan of lower limb veins MARK Cesar Work Phone: Start: 03-18-2022 OR XLIF Lumbar Lateral Interbody Fusion (Not Applicable) MARK Cesar Work Phone: Start: 03-18-2022 X-ray of lumbar spine, two or three views II Vlad Cesar Work Phone: Start: 01-09-2022 Dual energy X-ray absorptiometry MD Abner Roa Work Phone: Start: 01-03-2022 X-ray of lumbar spine, six views including bending views MD Abner Roa Work Phone: Start: 01-03-2022 XR pre/post mri xray MD Abner Roa Work Phone: Start: 01-03-2022 MRI of cervical spine without contrast MD Abner Roa Work Phone: Start: 07-12-2015 H/O: hysterectomy History of hysterectomy Vlad Cesar MD Work Phone: History of decompres renard of median nerve History of carpal tunnel surgery of right wrist II Vlad Cesar Work Phone: Plan of Treatment Date Care Activity Detail Author Start: 08-18-2024 Adult BMI Screening Adult BMI Screen ing [facility] [email or web address] Start: 08-18-2024 Depression Screening Depression Scre ening [facility] [email or web address] Start: 08-18-2024 Tobacco Screening Tobacco Screening [facility] [email or web address] Start: 06-25-2024 Medicare Annual Well ness (AWV) Medicare Annual Wellness (AWV) [facility] Start: 06-25-2024 Pneumococcal Vaccine : 65+ Years (1 - PCV) Pneumococcal Vaccine: 65+ Years (1 - PCV) [facility] Comment on above: Postponed from 11/23 (Patient Refused) Start: 06-25-2024 Screening for malign ant neoplasm of colon Colorectal Cancer Screening [facility] Comment on above: Postponed from 11/23 (Patient Refused) Start: 03-10-2024 Urine screening for protein Diabetes: Urine Protein Screening [facility] Start: 12-15-2023 End: 12-15-2023 Patient encounter procedure 12/15/2023 11:00 AM EDT Office Visit [facility] [address] [place] [phone] Casey Christopher MD [address] [place] [address], [address] [place] [phone] [facility] Start: 12-07-2023 Influenza vaccination Influenza Vacc ine (#1) [facility] Comment on above: Postponed from 02/07 (Patient Refused) Start: 11-07-2023 Screening for malign ant neoplasm of breast Mammogram [facility] Start: 10-25-2023 Glaucoma screening Diabetes: R etinopathy Screening [facility] Start: 10-02-2023 Hemoglobin A1c measurement Diabetes: Hemoglobin A1C [facility] Start: 09-24-2023 End: 09-24-2023 Patient encounter procedure 09/24/2023 11:00 AM EDT Office Visit [facility] [address] [place] [phone] Vlad Cesar MD [address] [place] [address] [facility] Start: 09-23-2023 End: 09-23-2023 Patient encounter procedure 09/23/2023 1:00 PM EDT Procedure Visit [facility] [address] [place] [phone] Mya Cisse DPMona [address] [place] [address] [facility] Start: 08-19-2023 End: 08-19-2023 Patient encounter procedure 08/19/2023 11:30 AM EDT Office Visit [facility] [address] [place] [phone] Robbi Uribe MD [address] [place] [address], [address], [address] [place], [place] [phone] [facility] Start: 07-30-2023 End: 07-30-2023 Patient encounter procedure 07/30/2023 11:30 AM EST Office Visit [facility] [address] [place] [address] Vlad Cesar MD [address] [facility] [address] [place] [address] [facility] Start: 02-07-2023 Influenza vaccination Influenza Vacc ine [facility] Start: 04-03-2022 [facility] Start: 03-22-2022 Hospital admission [facility] Start: 03-22-2022 Referral to clinical credit specialist [facility] Start: 03-21-2022 [facility] Start: 03-18-2022 Computer Assisted Procedure of [place]unk Region Computer Assisted Procedure of [place] Region [facility] Start: 03-18-2022 Excision of Lumbar Vertebral Disc, Open Approach Excision of Lumbar Vertebral Disc, Open Approach [facility] Start: 03-18-2022 Fusion of 2 or more Lumbar Vertebral Joints with Interbody Fusion Device, Anterior Approach, Anterior Column, Open Approach Fusion of 2 or more Lumbar Vertebral Joints with Interbody Fusion Device, Anterior Approach, Anterior Column, Open Approach [facility] Start: 03-18-2022 Fusion of 2 or more Lumbar Vertebral Joints with Synthetic Substitute, Posterior Approach, Posterior Column, Open Approach Fusion of 2 or more Lumbar Vertebral Joints with Synthetic Substitute, Posterior Approach, Posterior Column, Open Approach [facility] Start: 03-18-2022 Introduction of Recombinant Bone Morphogenetic Protein into Joints, Open Approach Introduction of Recombinant Bone Morphogenetic Protein into Joints, Open Approach [facility] Start: 01-09-2022 Dual energy X-ray absorptiometry XR dexa axial skeleton [facility] Start: 01-09-2022 End: 01-09-2022 Patient encounter procedure Departed Clinical [facility] Start: 2017 Fall Risk Screening Fall Risk Screen ing [facility] Start: 2002 Administration of varicella zoster vaccine Zoster (Shingles) Vaccine (1 of 2) [facility] Start: 11-24-1971 DTaP,Tdap and Td Vaccines (1 - Tdap) DTaP,Tdap and Td Vaccines (1 - Tdap) [facility] Start: 1970 Adult BMI Follow Up Plan Adult BMI Follow Up Plan [facility] Start: 1970 Adult BMI Screening Adult BMI Screen ing [facility] Start: 1964 Depression Screening Depression Scre ening [facility] Start: 1964 Tobacco Screening Tobacco Screening [facility] Start: 1952 Medicare Annual Well ness Visit Medicare Annual Wellness Visit [facility] Start: 1952 Screening for malign ant neoplasm of colon [facility] Patient Education TLSO and LSO [facility] Work Phone: Patient referral [facility] Work Phone: [facility] Payers Date Payer Category Payer Self-pay [id number] 2022 Private Health Insurance [id number] 2017 Medicare [id number] 1959 Medicare [id number] 2.1 [id number] 1959 Private Health Insurance [id number] 1952 Unknown [id number] 2.16.8 [id number] 1952 Unknown [id number] 2.16.8 40.1.185935.3.579.2.647 1952 Unknown [id number] 2.16.84 0.1.559912.3.579.2.593 1952 Unknown [id number] 2.16.84 [id number] 1952 Unknown [id number] 2.16.84 0.1.731047.3.579.2.593 1952 Unknown [id number] 2.16.8 40.1.362189.3.579.2.1286 1952 Unknown [id number] 2.16.84 0.1.571468.3.579.2.1259 1952 Unknown [id number] 2.16.84 0.1.432121.3.579.2.1259 1952 Unknown [id number] 2.16.84 0.1.494877.3.579.2.1259 1952 Unknown [id number] 2.16.84 0.1.129836.3.579.2.1259 1952 Unknown [id number] 2.16.84 0.1.256039.3.579.2.1259 1952 Unknown [id number] 2.16.84 0.1.635006.3.579.2.1259 1952 Unknown [id number] 2.16.840. [id number] Unknown Unknown [id number] 2.16.8 40.1.816374.3.579.2.531 Unknown [id number] 2.16.8 [id number] Unknown [id number] 2.16.8 [id number] Social History Date Type Detail Facility Start: 01-12-2023 End: 08-19-2023 Sex Assigned At [facility] Start: 1950 Sex Assigned At Female F [facility] Start: 03-05-2022 End: 03-23-2022 Tobacco smoking status DCIS Never smoked tobacco (finding) [facility] Tobacco smoking stat us [facility] Tobacco smoking consumption unknown [facility] Start: 1950 Sex Assigned At Not on file P [facility] Start: 12-20-2022 End: 08-19-2023 Tobacco use and exposure Smokeless tobacco non-user [facility] Start: 07-21-2023 Alcohol intake Lifetime non-d sharon (finding) [facility] Start: 01-12-2023 End: 08-19-2023 History of Social function [facility] Within the last year , have you been afraid of your partner or ex-partner? No [facility] Are you now , , , , never or living with a partner? Living with partner [facility] How often to you hav e a drink containing alcohol? Never [facility] How many standard drinks containing alcohol do you have on a typical day? Patient does not drink [facility] Do you feel stress - tense, restless, nervous, or anxious, or unable to sleep at night because your mind is troubled all the time - these days [OSQ] Not at all [facility] (I/We) worried wheth er (my/our) food would run out before (I/we) got money to buy more. Never true [facility] Start: 10-11-2022 Alcohol Comment Caffeine: 1-2 cups per day [facility] Start: 08-19-2023 Alcohol intake Ex-drinker (finding) [facility] [employer] [facility] Medical Equipment Procedure Code Equipment Code Equipment Origin al Text Equipment Identifier Dates Fusion, spine, lumbar, XLIF STRATOFUSE DBM 10CC FDA Start: 03-18-2022 Fusion, spine, lumbar, XLIF Bone-screw internal spinal fixation system, non-sterile [id number] FDA Start: 03-18-2022 Fusion, spine, lumbar, XLIF Orthopaedic bone screw, non-bioabsorbable, non-sterile [id number] FDA Start: 03-18-2022 Fusion, spine, lumbar, XLIF Orthopaedic instrument surgical connector [id number] FDA Start: 03-18-2022 Fusion, spine, lumbar, XLIF Bone-screw internal spinal fixation system, non-sterile [id number] FDA Start: 03-18-2022 Fusion, spine, lumbar, XLIF STRATOFUSE DBM 5CC FDA Start: 03-18-2022 Fusion, spine, lumbar, XLIF Spinal fusion graft kit [id number] FDA Start: 03-18-2022 Fusion, spine, lumbar, XLIF Metallic spinal fusion cage, non-sterile [id number] FDA Start: 03-18-2022 Fusion, spine, lumbar, XLIF Metallic spinal fusion cage, non-sterile [id number] FDA Start: 03-18-2022 Fusion, spine, lumbar, XLIF [...] XLIF STRATOFUSE DBM 5CC FDA Start: 03-18-2022 USE DIRECTED UNDER THE SKIN TWO TIMES DAILY [id number] Start: 11-29-2022 1 each by Other route in the morning and 1 each at noon and 1 each in the evening and 1 each before bedtime. Take before meals. ONE TOUCH ULTRA STRIPS DX: e11.65. [id number] Start: 07-09-2023 Inject under the skin 2 (two) times a day. Use as instructed [id number] 2 (two) times a day. Use as instructed [id number] Goals Date Patient Goal Desired Activity /State Functional Status Date Assessment Result Facility 04-03-2022 Functional status Patient is Pro gressing Toward Baseline [facility] Work Phone: 03-22-2022 Functional status Patient is Pro gressing Toward Baseline [facility] Work Phone: 03-18-2022 Functional status Patient at Baseline [facility] Work Phone: 03-05-2022 Functional status Disability Sta tus Patient at Baseline [facility] Work Phone: Mental Status Date Assessment Result Facility 04-03-2022 Cognitive function Cognitive Sta tus Patient at Baseline [facility] Work Phone: 03-22-2022 Cognitive function Cognitive Sta tus Patient at Baseline [facility] Work Phone: 03-18-2022 Cognitive function Cognitive Sta tus Patient at Baseline [facility] Work Phone: Clinical Notes 09-25-2021 to 10-14-2023 Telephone Encounter - Trista Castaneda - 09/04/2023 2:53 PM EDTTelephone Encounter - Kasandra Weaver - 09/04/2023 2:53 PM EDTTelephone Encounter - Trista Castaneda - 09/04/2023 2:53 PM EDT Note Date & Type Note Facility 10-14-2023 Note Cardiovascular [facility] SUBJECTIVE Chief Complaint Patient presents with Coronary Artery Disease Congestive Heart Failure Hypertension Laura Lawson is a 72 y.o. female here for hospital follow-up. HPI PMHx: resistant HTN, HFpEF, DM II, KJ, HFrEF, CAD 10/14/23 -Since last seen she has undergone PCI to the LAD x2 and RCA x1 with Impella support. She tolerated the procedure well. She has been feeling well since being discharged. Her weight has been stable. Denies c/o CP, dyspnea, orthopnea, PND, LE edema, dizziness/LH, palpitations, syncope. 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 (CMS/HCC) Low back pain Morbid obesity ([facility]) Neoplasm of uncertain behavior of kidney Obstructive sleep apnea syndrome Osteoarthritis of knee Osteoporosis Peripheral venous insufficiency Polyneuropathy due to type 2 diabetes mellitus ([facility]) Preoperative evaluation to rule out surgical contraindication Pulmonary function studies abnormal Pure hypercholesterolemia Renal mass Skin sensation disturbance Type 2 diabetes mellitus without complication ([facility]) Umbilical hernia Uric acid nephrolithiasis NSTEMI (non-ST elevated myocardial infarction) ([facility]) Acute exacerbation of CHF (congestive heart failure) ([facility]) COVID-19 Acquired spondylolisthesis Acute on chronic diastolic heart failure ([facility]) Coronary artery disease (CAD) excluded Diastolic dysfunction GERD (gastroesophageal reflux disease) History of carpal tunnel surgery of right wrist Hyperlipidemia Impaired mobility and endurance Localized edema Lumbar radiculopathy Morbid obesity with body mass index (BMI) of 45.0 to 49.9 in adult ([facility]) Paresthesia of skin Primary osteoarthritis of both knees S/P drug eluting coronary stent placement Ulcer of foot due to type 2 diabetes mellitus ([facility]) Pericardial effusion CAD in [place] artery Coronary artery disease Coronary artery disease involving [place] coronary artery of [place] heart with other form of angina pectoris ([facility]) Chronic systolic heart failure ([facility]) Past Medical History: Diagnosis Date Abnormal ECG CHF (congestive heart failure) ([facility]) Coronary artery disease Diabetes mellitus ([facility]) Gout Hypertension Myocardial infarction ([facility]) Sleep apnea Family History Problem Relation Name Age of Onset JABARI disease Mother Heart attack Father Social History Tobacco Use Smoking status: Never Smokeless tobacco: Never Substance Use Topics Alcohol use: Not Currently Allergies Allergen Reactions Gabapentin Palpitations Other reaction(s): Chest Pain Tramadol Other Other reaction(s): sleeplessness ROS Cardiovascular: Positive for leg swelling. Respiratory: Positive for cough. Musculoskeletal: Positive for muscle weakness. All other systems reviewed and are negative. OBJECTIVE Visit Vitals BP 110/72 (BP Location: Left arm, Patient Position: Sitting) Pulse 63 Ht 1.575 m (5' 2 ) Wt 102 kg (225 lb) SpO2 99% BMI 41.15 kg/m??? OB Status Postmenopausal Smoking Status Never BSA 2.11 m??? Medications: Current Outpatient Medications: allopurinol (Zyloprim) 300 mg tablet, Take 300 mg by mouth in the morning., Disp: , Rfl: aspirin 81 mg EC tablet, Take 81 mg by mouth in the morning., Disp: , Rfl: atorvastatin (Lipitor) 80 mg tablet, Take 1 tablet (80 mg) by mouth at bedtime., Disp: 90 tablet, Rfl: 3 baclofen (Lioresal) 10 mg tablet, Take 10 mg by mouth at bedtime., Disp: , Rfl: carvedilol (Coreg) 6.25 mg tablet, Take 1 tablet (6.25 mg) by mouth in the morning and at bedtime for 189 doses., Disp: 60 tablet, Rfl: 3 clopidogrel (Plavix) 75 mg tablet, Take 1 tablet (75 mg) by mouth once daily as directed for 360 doses., Disp: 90 tablet, Rfl: 3 dapagliflozin propanediol (Farxiga) 10 mg, Take 1 tablet (10 mg) by mouth in the morning for 94 doses. Do not start before July 08, 2023., Disp: 30 tablet, Rfl: 3 hydrALAZINE (Apresoline) 25 mg tablet, Take 25 mg by mouth in the morning and at bedtime., Disp: , Rfl: insulin lispro (HumaLOG) 100 unit/mL injection, Patient reports taking three times daily 15 minutes before meals. Reports taking 25 units of Humalog to decrease glucose reading by 100, Disp: , Rfl: meloxicam (Mobic) 15 mg tablet, Take 15 mg by mouth in the morning., Disp: , Rfl: nitroglycerin (Nitrostat) 0.3 mg SL tablet, nitroglycerin 0.3 mg sublingual tablet, (more content not included)... [facility] 10-14-2023 Note Patient here for fol low up PCI with Dr. Zendejas on 10/08/2023. Says she's doing very well. Denies chest pain, SOB, and lightheadedness/syncope. Review of Systems Cardiovascular: Positive for leg swelling. Respiratory: Positive for cough. Musculoskeletal: Positive for muscle weakness. All other systems reviewed and are negative. [facility] 10-09-2023 Note 10/09/23 1032 Admission Assessment Questions Verify insurance with patient Yes Do you understand medical disease or what brought you into the hospital? Yes Who is your current PCP? Vlad Cesar MD Can I schedule a follow up appointment for you at the time of discharge? No Do you understand why you are taking your current medications? Yes Are you taking your medications as prescribed? Yes Did patient provide teach back? Yes Would you like use our pharmacy i[facility] to fill your new medications at the time of Discharge? Yes Does the patient have a family service caseworker assigned to them through their insurance? No Living Arrangement (Current/Prior to Hospitalization) Private residence;Home self care (lives w/friend One story home w/3-4 entry stairs) Does the patient have history of HHC or SNF? Yes (HHC in past) Assistive Device Walker (Bipap, shower seat) Patient's goal for discharge home Was patient reminded that goal for discharge is 11am? Yes Does the patient have transportation at discharge? Yes Type of Residence/Post Acute Needs Private residence Is PT/OT appropriate? No Is PT/OT ordered? No Is SW consult appropriate? No Is SW consult ordered? No Do you understand the benefits of MyChart? Yes Were you able to send link and activate MyChart? Yes [facility] 10-08-2023 Note Patient: Laura Lawson Procedure Information Date/Time: 10/08/23 0830 Procedures: Percutaneous coronary intervention - with Impella Impella insertion Atherectomy - coronary Location: [facility]PA[facility] 3 / [facility] (Cath) Providers: Julito Zendejas MD Clinical information reviewed: Tobacco Allergies Meds Med Hx Surg Hx Fam Hx Physical Exam Airway Mallampati: III Cardiovascular Rhythm: regular Rate: normal Dental Pulmonary - normal exam Abdominal - normal exam Anesthesia Plan ASA 3 other (Conscious sedation) intravenous induction Anesthetic plan and risks discussed with patient. Use of blood products discussed with patient who consented to blood products. Plan discussed with attending. Additional Equipment Requests [facility] 09-26-2023 Note hydral [place] Cardiology - [facility] Subjective Laura Lawson is a 72 y.o. 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 (CMS/HCC) Low back pain Morbid obesity ([facility]) Neoplasm of uncertain behavior of kidney Obstructive sleep apnea syndrome Osteoarthritis of knee Osteoporosis Peripheral venous insufficiency Polyneuropathy due to type 2 diabetes mellitus ([facility]) Preoperative evaluation to rule out surgical contraindication Pulmonary function studies abnormal Pure hypercholesterolemia Renal mass Skin sensation disturbance Type 2 diabetes mellitus without complication ([facility]) Umbilical hernia Uric acid nephrolithiasis NSTEMI (non-ST elevated myocardial infarction) ([facility]) Acute exacerbation of CHF (congestive heart failure) ([facility]) COVID-19 Acquired spondylolisthesis Acute on chronic diastolic heart failure ([facility]) Coronary artery disease (CAD) excluded Diastolic dysfunction GERD (gastroesophageal reflux disease) History of carpal tunnel surgery of right wrist Hyperlipidemia Impaired mobility and endurance Localized edema Lumbar radiculopathy Morbid obesity with body mass index (BMI) of 45.0 to 49.9 in adult ([facility]) Paresthesia of skin Primary osteoarthritis of both knees S/P drug eluting coronary stent placement Ulcer of foot due to type 2 diabetes mellitus ([facility]) Pericardial effusion Acute systolic heart failure ([facility]) CAD in [place] artery Family History Problem Relation Name Age of Onset JABARI disease Mother Heart attack Father Social History Tobacco Use Smoking status: Never Smokeless tobacco: Never Substance Use Topics Alcohol use: Not Currently HPI Laura is seen in follow-up. She is a 72-year-old woman with prior history of coronary artery disease status post multivessel intervention in 2013 at which time she was deemed not a candidate for bypass surgery. She did well for a long time. Recently she was evaluated in cardiology clinic with NSTEMI and acute systolic heart failure. An echocardiogram showed significantly reduced systolic function. She had been admitted with decompensated heart failure and elevated troponins. Eventually she underwent cardiac catheterization on 09/09/2023 that showed high-grade calcific stenosis at the ostium of the LAD and high-grade stenoses in the right coronary artery. She was admitted to the hospital and medications optimized. She was discharged and is seen in follow-up today to plan revascularization of her coronary artery disease. She reports that she has been doing reasonably well. She has been taking medications as prescribed. Her blood pressure has been on the lower side. She denies active chest pain and she uses a walker to assist with ambulation and has mild shortness of breath at the current level of activity. NYHA class II. Review of Systems Cardiovascular: Positive for dyspnea on exertion. All other systems reviewed and are negative. Objective Visit Vitals BP (!) 110/40 (BP Location: Left arm, Patient Position: Sitting, BP Cuff Size: Adult) Pulse 79 Resp 13 Ht 1.575 m (5' 2 ) Wt 102 kg (225 lb) SpO2 96% BMI 41.15 kg/m??? OB Status Postmenopausal Smoking Status Never BSA 2.11 m??? Physical Exam Constitutional: Appearance: She is [...] Comments: Uses a walker to assist with ambulation Skin: General: Skin is warm and dry. Neurological: General: No focal deficit present. Mental Status: She is alert and (more content not included)... [facility] 09-10-2023 Note Hospital Medicine Discharge Summary Final Discharge Diagnosis: Acute systolic heart failure (CMS/HCC) CAD Essential hypertension NIDDM2 Hyperlipidemia Morbid obesity Admission Diagnosis: Acute systolic heart failure (CMS/HCC) [I50.21] CAD in [place] artery [I25.10] Hospital course: Laura Lawson is an 72 y.o. 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 Pt seen chart reviewed . Most recent echocardiogram revealed LVEF of 35%. Pt appears to be asymptomatic denies cp heart palpitation she does feel fatigued and tired with exertion no cough has dyspnea on exertion denies any any PND has 2-3 pillow orthopnea and edema of the legs. She denies any significant weight gain but has limited level of activity due to dyspnea. 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 Dear Dr. Arsenio MD, [place] is advised to follow up with you within 1-2 weeks. Follow-up with: Cardiology Scheduled appointments: Future Appointments Date Time Provider Department Center 09/26/2023 3:30 PM Julito Zendejas MD [facility] Your medication list START taking these medications Instructions Last Dose Given Next Dose Due clopidogrel 75 mg tablet Commonly known as: Plavix Start taking on: September 11, 2023 Take 1 tablet (75 mg) by mouth in the morning for 30 doses. Do not start before September 11, 2023. spironolactone 25 mg tablet Commonly known as: Aldactone Start taking on: September 11, 2023 Take 1 tablet (25 mg) by mouth in the morning for 30 doses. Do not start before September 11, 2023. CONTINUE taking these medications Instructions Last Dose Given Next Dose Due allopurinol 300 mg tablet Commonly known as: Zyloprim aspirin 81 mg EC tablet atorvastatin 80 mg tablet Commonly known as: Lipitor Take 1 tablet (80 mg) by mouth at bedtime. baclofen 10 mg tablet Commonly known as: Lioresal carvedilol 6.25 mg tablet Commonly known as: Coreg Take 1 tablet (6.25 mg) by mouth in the morning and at bedtime for 189 doses. dapagliflozin propanediol 10 mg Commonly known as: Farxiga Take 1 tablet (10 mg) by mouth in the morning for 94 doses. Do not start before July 08, 2023. hydrALAZINE 100 mg tablet Commonly known as: Apresoline insulin lispro 100 unit/mL injection Commonly known as: HumaLOG meloxicam 15 mg tablet Commonly known as: Mobic nitroglycerin 0.3 mg SL tablet Commonly known as: Nitrostat omeprazole [address] capsule Commonly known as: PriLOSEC potassium chloride CR 20 mEq ER tablet Commonly known as: Klor-Con M20 sacubitril-valsartan 49-51 mg tablet Commonly known as: Entresto Take 1 tablet by mouth in the morning and at bedtime. Replacing candesartan torsemide 20 mg tablet Commonly known as: Demadex Toujeo Max U-300 SoloStar 300 unit/mL (3 mL) injection Generic drug: insulin glargine Trulicity 1.5 mg/0.5 mL pen injector Generic drug: dulaglutide Where to Get Your Medications These medications were sent to [facility] [address] [place] [address] [place] [address], [facility] [address] clopidogrel 75 mg tablet spironolactone 25 mg tablet Laura has No Known Allergies. Disposition: Home or Self Care () Discharge Condition: Stable Code Status: Prior Diagnostic Results Hematology: Results from last 7 days Lab Units 09/10/23 0508 WBC AUTO 10*3/uL 8.79 HEMOGLOBIN g/dL 12.4 HEMATOCRIT % 38.0 MCV fL 94.1 PLATELETS AUTO 10*3/uL 256 Chemistry: Results from last 7 days Lab Units 09/10/23 0508 SODIUM mmol/L 136 POTASSIUM mmol/L 4.1 CHLORIDE mmol/L 103 CO2 mmol/L 26 BUN mg/dL 27* CREATININE mg/dL 0.84 GLUCOSE mg/dL 148* MAGNESIUM mg/dL 2.1 CALCIUM mg/dL 9.5 Results from last 7 days Lab Units 09/10/23 0508 AST U/L 15 ALT U/L 12 ALK PHOS U/L 67 BILIRUBIN TOTAL mg/dL 0.6 Test Results Pending At Discharge: Diet at the time of discharge: regular diet, cardiac diet, and diabetic diet Nutrition Screen Activity: Normal activity as tolerated Objective Blood pressure 137/71, pulse 73, temperature 36.6 ???C (97.9 ???F), temperature source Temporal, resp. rate 15, height 1.575 m (5' 2 ), weight 102 kg (225 lb 12.8 oz), SpO2 95 %. General: Alert and oriented x3. Cardiology: Normal rate, regular rhythm. Lungs: Clear to auscultation, no wheezes, rales or rhonch (more content not included)... 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 No Patient's goal for discharge home Does the patient need discharge transport arranged? No Planning discharge home; no PT/OT orders in place. [facility] 09-10-2023 Note Attestation signed by Bhargav Wagner MD at 09/11/2023 7:57 PM I personally saw and examined the patient on the same date of service as resident/fellow Dr. Duran. I discussed the findings and therapeutic plan with the resident/fellow . I agree with the documentation, except for any edits/updates below. Teaching Physician's Revisions: none coronary angiogram revealed severe calcified ostial LAD disease as well as intermediate to severe proximal RCA disease Plan for Impella assisted rotational atherectomy and PCI She has acute systolic heart failure but is currently stable and compensated based on her [facility] findings We will have close outpatient follow-up and further evaluation with Dr. Zendejas in the outpatient setting and then plan for staged PCI procedure Cardiology Progress Note HPI: Laura Lawson is a 72 y.o. female with past medical history of heart failure with reduced ejection fraction, EF 35%, history of CAD, sleep apnea, hypertension, type 2 diabetes mellitus, gout, who came as a direct admission after coronary angiography showed calcified nodule in the ostium of LAD causing severe stenosis along with severe triple-vessel disease. Patient has been short of breath since June 2023 when she was admitted for acute heart failure. Her filling pressures are normal on the right heart cath. Subjective Patient was seen and examined at bedside, denied having any complaints, no chest pain, or shortness of breath at rest, no palpitations, remained afebrile and hemodynamically stable. Objective Current Facility-Administered Medications: allopurinol (Zyloprim) tablet 300 mg, 300 mg, oral, Daily, Joshua Grider MD aspirin EC tablet 81 mg, 81 mg, oral, Daily, Joshua Grider MD atorvastatin (Lipitor) tablet 80 mg, 80 mg, oral, Nightly, Joshua Grider MD, 80 mg at 09/09/232099 carvedilol (Coreg) tablet 6.25 mg, 6.25 mg, oral, BID, Joshua Grider MD, 6.25 mg at 09/09/232099 clopidogrel (Plavix) tablet 75 mg, 75 mg, oral, Daily, Анна Wilson MD dapagliflozin propanediol (Farxiga) tablet 10 mg, 10 mg, oral, Daily, Joshua Grider MD hydrALAZINE (Apresoline) tablet 100 mg, 100 mg, oral, TID, Joshua Grider MD, 100 mg at 09/09/232099 insulin lispro (HumaLOG) injection 0-10 Units, 0-10 Units, subcutaneous, TID with meals, 4 Units at 09/09/23 1731 AND insulin lispro (HumaLOG) injection 0-8 Units, 0-8 Units, subcutaneous, Nightly, Joshua Grider MD nitroglycerin (Nitrostat) SL tablet 0.4 mg, 0.4 mg, sublingual, q5 min PRN, Joshua Grider MD pantoprazole (ProtoNix) EC tablet 40 mg, 40 mg, oral, Daily, Joshua Grider MD potassium chloride CR (Klor-Con M10) ER tablet 10 mEq, 10 mEq, oral, Daily with breakfast, Joshua Grider MD sacubitril-valsartan (Entresto) 49-51 mg per tablet 1 tablet, 1 tablet, oral, BID, Joshua Grider MD, 1 tablet at 09/09/232099 spironolactone (Aldactone) tablet 25 mg, 25 mg, oral, Daily, Анна Wilson MD, 25 mg at 09/09/232099 torsemide (Demadex) tablet 20 mg, 20 mg, oral, Daily, Joshua Grider MD Objective: Patient Vitals for the past 24 hrs: BP Temp Temp src Pulse Resp SpO2 Height Weight 09/10/23 0529 -- 36.5 ???C (97.7 ???F) -- -- -- -- -- 102 kg (225 lb 12.8 oz) 09/10/23 0400 155/65 -- -- 56 12 -- -- -- 09/10/23 0015 170/76 -- -- 60 14 99 % -- -- 09/09/23 2000 -- 36.7 ???C (98 ???F) -- 67 17 -- -- -- 09/09/23 1950 133/65 -- -- 67 20 98 % -- -- 09/09/23 1730 139/62 36.7 ???C (98 ???F) Temporal 63 13 96 % -- -- 09/09/23 1615 -- -- -- 61 18 -- -- -- 09/09/23 1515 -- -- -- 88 20 -- -- -- 09/09/23 1445 -- -- -- 75 17 -- -- -- 09/09/23 1415 133/66 36.9 ???C (98.4 ???F) Temporal 64 22 93 % -- -- 09/09/23 1400 -- -- -- 67 19 -- -- -- 09/09/23 1345 142/78 -- -- 80 14 -- -- -- 09/09/23 1336 146/56 37 ???C (98.6 ???F) Temporal 81 25 95 % -- -- 09/09/23 1315 (!) 142/111 -- -- 73 18 95 % 1.575 m (5' 2 ) 103 kg (226 lb) 09/09/23 1300 (!) 172/115 -- -- 71 18 94 % -- -- 09/09/23 1245 -- -- -- 72 18 93 % -- -- 09/09/23 1242 123/77 -- -- -- -- -- -- -- 09/09/23 1230 (!) 148/105 -- -- 64 19 96 % -- -- 09/09/23 1215 145/70 -- -- 64 16 97 % -- -- 09/09/23 1200 147/67 -- -- 68 17 97 % -- -- 09/09/23 1145 106/87 -- -- 66 18 97 % -- -- 09/09/23 1136 -- -- -- -- -- 98 % -- -- 09/09/23 1135 140/77 -- -- 67 19 97 % -- -- 09/09/23 0920 -- -- -- -- -- 97 % -- -- 09/09/23 0919 169/74 -- -- 61 19 96 % -- -- Physical Examination: GENERAL: AOx3, in no acute distress. HEAD: Atraumatic, normocephalic. EYES: STEVEN, EOMI. NECK: No JVD present. CARDIAC: RRR. No murmur, rubs, or gallops. RESPIRATORY: CTAB, no increased effort of breathing. ABDOMEN: Soft, nontender, nondistended. EXTREMITIES: No lower extremity edema, peripheral pulses are 2+ bilaterally. NEURO: No (more content not included)... [facility] 09-10-2023 Note Clinical Nutrition A ssessment Name: Laura Lawson Date: 1950 Date of Visit: 09/10/23 Reason for assessment: high risk Information obtained from: patient, medical record, and nursing Medical History No chief complaint on file. Past Medical History: Diagnosis Date Abnormal ECG CHF (congestive heart failure) (CMS/HCC) Coronary artery disease Diabetes mellitus (CMS/HCC) Gout Hypertension Myocardial infarction (CMS/HCC) Sleep apnea Past Surgical History: Procedure Laterality Date BACK SURGERY CARDIAC CATHETERIZATION CARPAL TUNNEL RELEASE HYSTERECTOMY THYROID SURGERY Current Outpatient Medications Medication Instructions allopurinol (ZYLOPRIM) 300 mg, oral, Daily aspirin 81 mg, oral, Daily atorvastatin (LIPITOR) 80 mg, oral, Nightly baclofen (LIORESAL) 10 mg, oral, Nightly carvedilol (COREG) 6.25 mg, oral, 2 times daily dapagliflozin propanediol (FARXIGA) 10 mg, oral, Daily hydrALAZINE (APRESOLINE) 100 mg, oral, 3 times daily insulin lispro (HumaLOG) 100 unit/mL injection Patient reports taking three times daily 15 minutes before meals. Reports taking 25 units of Humalog to decrease glucose reading by 100 meloxicam (MOBIC) 15 mg, oral, Daily nitroglycerin (Nitrostat) 0.3 mg SL tablet nitroglycerin 0.3 mg sublingual tablet omeprazole (PriLOSEC) [address] capsule No dose, route, or frequency recorded. potassium chloride CR (Klor-Con M20) 20 mEq ER tablet Every 12 hours sacubitril-valsartan (Entresto) 49-51 mg tablet 1 tablet, oral, 2 times daily, Replacing candesartan torsemide (DEMADEX) 20 mg, oral, 2 times daily RT Toujeo Max U-300 SoloStar 100 Units, subcutaneous, Daily Trulicity 1.5 mg, subcutaneous, Weekly No Known Allergies Nutrition Problems: Appetite: good Geriatric feeding skills: Ability to feed oneself Physical findings: obese Skin Integrity: buttocks skin tear. 0.2 x0.2 cm Other: Generalized +1 edema Newly diagnosed HF, s/p coronary angiogram. Per cardiology 35% EF, per latest echo difficult to assess function Plan for PCI today per cardiology Diuretics daily, refused torsemide per MAR. On Potassium chloride supplements. Results from last 7 days Lab Units 09/10/23 0714 09/10/23 0508 09/09/23200009/09/23 1636 GLUCOSE mg/dL -- 148* -- -- POCT GLUCOSE mg/dL 141* -- 163* 228* BUN mg/dL -- 27* -- -- CREATININE mg/dL -- 0.84 -- -- SODIUM mmol/L -- 136 -- -- POTASSIUM mmol/L -- 4.1 -- -- MAGNESIUM mg/dL -- 2.1 -- -- HEMOGLOBIN g/dL -- 12.4 -- -- WBC AUTO 10*3/uL -- 8.79 -- -- Pending A1C , 10.8% in June 2023 I/O: Intake/Output Summary (Last 24 hours) at 09/10/2023 0821 Last data filed at 09/10/2023 0529 Gross per 24 hour Intake 1495.92 ml Output 205 ml Net 1290.92 ml Current Medications: allopurinol, 300 mg, oral, Daily aspirin, 81 mg, oral, Daily atorvastatin, 80 mg, oral, Nightly carvedilol, 6.25 mg, oral, BID clopidogrel, 75 mg, oral, Daily dapagliflozin propanediol, 10 mg, oral, Daily hydrALAZINE, 100 mg, oral, TID insulin lispro, 0-10 Units, subcutaneous, TID with meals And insulin lispro, 0-8 Units, subcutaneous, Nightly pantoprazole, 40 mg, oral, Daily potassium chloride CR, 10 mEq, oral, Daily with breakfast sacubitril-valsartan, 1 tablet, oral, BID spironolactone, 25 mg, oral, Daily torsemide, 20 mg, oral, Daily Anthropometrics: Height: 157.5 cm (5' 2 ) Weight: 102 kg (225 lb 12.8 oz) Body mass index is 41.3 kg/m???. Wt Readings from Last 7 Encounters: 09/10/23 102 kg (225 lb 12.8 oz) 07/31/23 103 kg (227 lb) 07/16/23 104 kg (229 lb) 07/07/23 105 kg (231 lb 7.7 oz) 02/26/23 114 kg (252 lb) 08/19/22 112 kg (248 lb) 02/08/22 115 kg (253 lb) Last admit, per RD note weight was 113 kg on 07/03/23. Per last note, pt has been trying to lose weight and started trulicity injections, dropped from 124 kg to 113 kg. Continues to report intentional weight loss. May also be fluid related, last admit pt had +3 BLE edema, now only reports as +1 generalized edema. IBW: 50 kg Weight change: -10% in 2 months. Nutrition Assessment: Diet History: from home. Home diabetic meds noted as 15 units humalog with meals (though pt states she takes 25 units instead to decrease her blood sugars ~100) but only reports taking once per day, toujeo U-300 100 units every AM, and weekly trulicity injections. Reports blood sugars are generally in the 200s, improved from 300-400. Dietary Orders (From admission, onward) Start Ordered 09/10/23 0001 Diet NPO Diet effective midnight Comments: Sips with medications Question: Reason for NPO: Answer: Operation/Procedure 09/09/23 1143 Percent Meals Eaten (%): 100 (09/09/23 2000 : Bev Ford RN) Nutrition Risk: Low Nutrition Recommendations: Resume HH/DM diet after procedure today Expect good intakes once diet resumes. Reinforced HF diet education, pt reports good understanding. Has had previous ed's (more content not included)... [facility] 09-10-2023 Note The patient is Moder ately Stable - Low risk of patient condition declining or worsening The patient's goals for the shift include get procedure done The clinical goals for the shift include VSS [facility] 09-09-2023 Note 09/09/23 1509 Admission Assessment Questions Verify insurance with patient Yes Do you understand medical disease or what brought you into the hospital? Yes Who is your current PCP? Vlad Cesar MD Can I schedule a follow up appointment for you at the time of discharge? No Do you understand why you are taking your current medications? Yes Are you taking your medications as prescribed? Yes Did patient provide teach back? Yes Would you like use our pharmacy [facility] to fill your new medications at the time of Discharge? Yes Does the patient have a family service caseworker assigned to them through their insurance? No Living Arrangement (Current/Prior to Hospitalization) Private residence;Home self care (lives w/friend. One story home w/4 entry stairs) Does the patient have history of HHC or SNF? Yes (HHC after back surgery - doesn't recall company) Assistive Device Grab bars;Other (Comment) (rollator, bipap machine ([employer] shower chair) Patient's goal for discharge home Was patient reminded that goal for discharge is 11am? Yes Does the patient have transportation at discharge? Yes Type of Residence/Post Acute Needs Private residence Is PT/OT appropriate? No Is PT/OT ordered? No Is SW consult appropriate? No Is SW consult ordered? No Do you understand the benefits of MyChart? Yes Were you able to send link and activate MyChart? No [facility] 09-09-2023 Note Hospital Medicine History and Physical 09/09/2023 12:19 PM THE HOSPITALIST TEAM PREFERS TO USE [employer] FOR COMMUNICATION 7AM-7PM. IF I DO NOT RESPOND WITHIN 15 MINUTES, PLEASE PAGE ME/CALL THROUGH THE CD[employer] INSTRUCTOR. FROM 7PM-7AM, PLEASE PAGE [phone](COVR) Chief Complaint No chief complaint on file. History of Present Illness Laura Lawson is an 72 y.o. 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 Pt seen chart reviewed . Most recent echocardiogram revealed LVEF of 35%. Pt appears to be asymptomatic denies cp heart palpitation she does feel fatigued and tired with exertion no cough has dyspnea on exertion denies any any PND has 2-3 pillow orthopnea and edema of the legs. She denies any significant weight gain but has limited level of activity due to dyspnea. She appears to have poorly controlled diabetes her last hemoglobin A1c was done a month back was 10 she checks blood sugars once or twice daily and they are usually run above 200 he denies any recent fall bruising epistaxis she has history of obstructive sleep apnea and uses noninvasive positive pressure ventilation at night Review of System and Physical Exam Heart Rate: [61-68] 68 Resp: [17-20] 17 BP: (106-169)/(63-87) 147/67 Physical Exam Vitals reviewed. Constitutional: Appearance: She is obese. HENT: Head: Normocephalic and atraumatic. Right Ear: Tympanic membrane, ear canal and external ear normal. Left Ear: Tympanic membrane, ear canal and external ear normal. Nose: Nose normal. Mouth/Throat: Mouth: Mucous membranes are moist. Pharynx: Oropharynx is clear. Comments: Mallampati score is 3 Eyes: Extraocular Movements: Extraocular movements intact. Pupils: Pupils are equal, round, and reactive to light. Cardiovascular: Rate and Rhythm: Normal rate and regular rhythm. Pulmonary: Effort: Pulmonary effort is normal. Breath sounds: Normal breath sounds. Abdominal: General: Abdomen is flat. Bowel sounds are normal. Palpations: Abdomen is soft. Musculoskeletal: General: Normal range of motion. Cervical back: Normal range of motion and neck supple. Right lower leg: Edema present. Left lower leg: Edema present. Skin: General: Skin is warm and dry. Capillary Refill: Capillary refill takes 2 to 3 seconds. Neurological: General: No focal deficit present. Mental Status: She is alert and oriented to person, place, and time. Psychiatric: Mood and Affect: Mood normal. Behavior: Behavior normal. Review of Systems Constitutional: Positive for fatigue. HENT: Negative. Eyes: Negative. Respiratory: Positive for shortness of breath. Cardiovascular: Positive for palpitations and leg swelling. Gastrointestinal: Negative. Endocrine: Negative. Genitourinary: Negative. Musculoskeletal: Negative. Allergic/Immunologic: Negative. Neurological: Negative. Psychiatric/Behavioral: Negative. Problem List Patient Active Problem List Diagnosis Date Noted CAD in [place] artery 09/09/2023 Pericardial effusion 08/05/2023 History of carpal tunnel surgery of right wrist 07/31/2023 Impaired mobility and endurance 07/31/2023 Morbid obesity with body mass index (BMI) of 45.0 to 49.9 in adult ([facility] 07/31/2023 Acute on chronic diastolic heart failure ([facility]) 07/21/2023 Acute exacerbation of CHF (congestive heart failure) ([facility]) 07/03/2023 COVID-19 07/03/2023 NSTEMI (non-ST elevated myocardial infarction) ([facility]) 07/02/2023 Acquired spondylolisthesis 01/13/2023 Diastolic dysfunction 01/13/2023 Lumbar radiculopathy 01/13/2023 Paresthesia of skin 01/13/2023 Primary osteoarthritis of both knees 01/13/2023 S/P drug eluting coronary stent placement 01/13/2023 Localized edema 10/28/2022 Coronary artery disease (CAD) excluded 10/15/2022 GERD (gastroesophageal reflux disease) 10/15/2022 Hyperlipidemia 10/15/2022 Difficulty walking 04/24/2021 Pure hypercholesterolemia 09/20/2020 Osteoporosis 03/08/2020 Peripheral venous insufficiency 01/10/2020 Polyneuropathy due to type 2 diabetes mellitus ([facility]) 01/10/2020 Chronic foot ulcer ([facility]) 11/25/2019 Ulcer of foot due to type 2 diabetes mellitus ([facility]) 11/25/2019 Skin sensation disturbance 11/05/2019 Decreased estrogen level 07/28/2019 Diabetic retinopathy associated with type 2 diabetes mellitus ([facility]) 10/30/2018 Dyspnea on exertion 08/04/2018 Osteoarthritis of knee 12/29/2017 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 [facility] 09-09-2023 Note Patient: Laura Lawson Procedure Information Date/Time: 09/09/23929 Procedure: Coronary angiography (Left) Location: [facility] / [facility] (Cath) Providers: Julito Zendejas MD Clinical information reviewed: Allergies Meds OB Status Physical Exam Airway Mallampati: IV TM distance: <3 FB Neck ROM: full Cardiovascular Dental Pulmonary Abdominal Anesthesia Plan ASA 3 other (Subconscious sedation. ) Additional Equipment Requests [facility] 09-04-2023 Miscellaneous Notes First Attempt Made from [employer]- NO VOICEMAIL New patient referral received. Dx:Bilateral carpal tunnel syndrome [G56.03]-H/o bilateral CTS, previous right carpel tunnel surgery. Diminished sensation in both hands/fingers./ Referred by:Robbi Uribe MD Referred to: Providers patient can see in clinic: Please contact patient to schedule from referral, Thanks! PLEASE REVIEW PLAN OVER THE PHONE AND ADVISE PATIENT TO BRING UPDATED INSURANCE INFORMATION TO THEIR NEW PATIENT APPOINTMENT Received call today 09/05/23 3:10 from patient in regard to previous message and she scheduled for new patient appt with Dr. Christopher on 12/15/23 11:00 at [facility]. She wanted to wait some months out due to Dr. Uribe saying it wasn't urgent for her to come in soon for the carpel tunnel. documented in this encounter [facility] 09-04-2023 Telephone encounter Note First Attempt Made from [employer]- NO VOICEMAIL New patient referral received. Dx:Bilateral carpal tunnel syndrome [G56.03]-H/o bilateral CTS, previous right carpel tunnel surgery. Diminished sensation in both hands/fingers./ Referred by:Robbi Uribe MD Referred to: Providers patient can see in clinic: Please contact patient to schedule from referral, Thanks! PLEASE REVIEW PLAN OVER THE PHONE AND ADVISE PATIENT TO BRING UPDATED INSURANCE INFORMATION TO THEIR NEW PATIENT APPOINTMENT [facility] 09-04-2023 Telephone encounter Note Received call today 09/05/23 3:10 from patient in regard to previous message and she scheduled for new patient appt with Dr. Christopher on 12/15/23 11:00 at [facility]. She wanted to wait some months out due to Dr. Uribe saying it wasn't urgent for her to come in soon for the carpel tunnel. [facility] 08-19-2023 History of Present illness Narrative Reason for visit: HPI: Laura Lawson is a 72 y.o. female who presents for follow up for a questionable small right cerebellar stroke in June 2023. Patient was initially admitted for CHF exacerbation, NSTEMI in the midst of COVID. Patient has prior medical history significant for diabetes, hypertension and CAD status post 4 stents. Patient stated that while in the hospital she had a brief episode of difficulty getting her words out. Patient stated that she was on the phone with a friend and could not get her words out correctly. Patient states she was completely aware of the event. Of note patient's A1c at that time was 10.8 and LDL was [address] angiogram which showed no significant stenosis or occlusion. Echo showed moderate left ventricular hypertrophy, left atrial dilatation and low EF of 30%. MRI showed a questionable tiny focus in the right cerebellum possibly consistent with infarct. Patient is currently on aspirin and statin daily. Patient also recently completed an event monitor for 30 days which showed no AFib/a flutter. Patient has since followed up with Cardiology at [facility]. Patient is present with friend today. Patient states that she needs clearance to get a heart catheterization and possible stents placed. Otherwise patient denies any significant residual stroke symptoms and is able to ambulate and do ADLs independently. She denies bilateral facial droop, loss of vision bilaterally, numbness or tingling of both feet, numbness or tingling of both hands, slurred speech, swallowing difficulty, and weakness of any extremity . Patient states that she has a history of bilateral carpal tunnel syndrome and previously had surgery on the right side with recurrence of symptoms. Patient states that she was supposed to have surgery on the left side but could not at that time. Patient currently does have difficulty gripping things with both hands. Patient also complains of numbness and tingling in both hands and fingers. Overall she feels her condition is stable. Stroke risk factors include: diabetes mellitus, hyperlipidemia, hypertension, and CAD s/p stents with low EF . The following portions of the patient's history were reviewed and updated as appropriate: allergies, current medications, past medical history, past social history, past surgical history, problem list, and medication reconciliation was completed including current medication and post discharge medication. Review of Systems Review of Systems Constitutional: Positive for weight loss. Negative for decreased appetite, malaise/fatigue and weight gain. HENT: Positive for hearing loss. Negative for nosebleeds. Eyes: Negative for blurred vision, double vision, vision loss in left eye, vision loss in right eye and visual disturbance. Cardiovascular: Positive for leg swelling. Negative for irregular heartbeat, near-syncope, palpitations and syncope. Respiratory: Negative for shortness of breath and sleep disturbances due to breathing. Hematologic/Lymphatic: Negative for bleeding problem. Does not bruise/bleed easily. Skin: Negative for poor wound healing. Musculoskeletal: Positive for arthritis. Negative for falls, muscle cramps, muscle weakness, myalgias and neck pain. Gastrointestinal: Negative for dysphagia. Neurological: Positive for loss of balance. Negative for aphonia, difficulty with concentration, disturbances in coordination, dizziness, focal weakness, headaches, light-headedness, numbness, paresthesias, seizures, sensory change, vertigo and weakness. Psychiatric/Behavioral: Negative for altered mental status, depression and memory loss. The patient does not have insomnia and is not nervous/anxious. Past Medical History No past medical history on file. Past Surgical History No past surgical history on file. Family History The patient has a family history of No family history on file. Social History Social History Socioeconomic History Marital status: Single Spouse name: Not on file Number of children: Not on file Years of education: Not on file Highest education level: Not on file Occupational History Not on file Tobacco Use Smoking status: Not on file Smokeless tobacco: Not on file Substance and Sexual Activity Alcohol use: Not on file Drug use: Not on file Sexual activity: Not on file Other Topics Concern Not on file Social History Narrative Not on file Social Determinants of Health Financial Resource Strain: Not on file Food Insecurity: Not on file Transportation Needs: Not on file Physical Activity: Not on file Stress: Not on file Social Connections: Not on file Interpersonal Safety: Not on file Housing Instability: Not on file Current Medications: No current outpatient medications on file. Allergies: Not on File Last Neuro Imaging: MRI brain 06/2023 Objective: BP 149/58 (BP Site: Left Arm, BP Postition: Sitting, BP CUFF SIZE: L (13-17 inches)) Pulse 63 Ht 157.5 cm (5' 2 ) Wt 102.1 kg (225 lb) BMI 41.15 kg/m Physical Exam: Physical Exam: Mental Status: Orientation: Oriented. Level of consciousness: alert. Speech: Normal quality. Language: Normal. Cranial Nerves: CN II: Visual rubio full to confrontation. CN III, IV, : CN III: EOM full. CN VII: Facial expression fully symmetric. Motor: Power: Pronator drift: None. Sensory: Diminished light sensation in bilateral hands compared to forearms. Intact light touch in all 4 extremities.. NIH Stroke Scale 1a Level of consciousness: 0=alert; keenly responsive 1b. LOC questions: 0=Performs both tasks correctly 1c. LOC commands: 0=Performs both tasks correctly 2. Best Gaze: 0=normal 3. Visual: 0=No visual loss 4. Facial Palsy: 0=Normal symmetric movement 5a. Motor left arm: 0=No drift, limb holds 90 (or 45) degrees for full 10 seconds 5b. Motor right arm: 0=No drift, limb holds 90 (or 45) degrees for full 10 seconds 6a. motor left le=No drift, limb holds 90 (or 45) degrees for full 10 seconds 6b Motor right le=No drift, limb holds 90 (or 45) degrees for full 10 seconds 7. Limb Ataxia: 0=Absent 8. Sensory: 0=Normal; no sensory loss 9. Best Language: 0=No aphasia, normal 10. Dysarthria: 0=Normal 11. Extinction and Inattention: 0=No abnormality 12. Distal motor function: 0=Normal Total: 0 MRS: 0 Risk Factor Management: Hypertension target range 130-140/70-80 Lipid range - LDL < 100 and checked every 6 months, fasting CAD s/p stents with low EF Assessment: There is no problem list on file for this patient. Patient is a 72-year-old female who sustained a TIA mainly with symptoms of expressive aphasia in June 2023 during her hospitalization for CHF exacerbation/NSTEMI/COVID. Of note patient has prior medical history of CAD status post 4 stents, diabetes, hypertension and hyperlipidemia with most recent A1c of 10.8. Of note echocardiogram showed decreased EF of 30%. At this time will clear patient for heart catheterization and potential heart stents if needed. Exam today is overall nonfocal. If heart catheterization shows no significant stenosis or occlusion, will recommend long-term heart monitoring with implantable loop recorder. Will also refer patient to General Neurology for previous history of bilateral carpal tunnel and possible diabetic neuropathy. Patient will likely follow up in stroke clinic as needed. Plan: Continue ASA daily Continue cholesterol medication Continue diabetic medication Continue BP medication Followup with cardiology as scheduled. Will clear patient for heart cath procedures and stents if needed. If heart cath shows no significant occlusions or narrowing, cardiology should consider a equipment operator intermodal yard heart monitor such as a LOOP recorder. Followup with general neurology for h/o carpel tunnel and possible diabetic neuropathy. Will call patient in 6 months, if patient is doing well, no followup needed. Call for any questions/concerns. documented in this encounter [facility] 08-19-2023 Instructions Robbi Uribe MD - 08/19/2023 11:30 AM EDT Continue ASA daily Continue cholesterol medication Continue diabetic medication Continue BP medication Followup with cardiology as scheduled. Will clear patient for heart cath procedures and stents if needed. If heart cath shows no significant occlusions or narrowing, cardiology should consider a long-term heart monitor such as a LOOP recorder. Followup with general neurology for h/o carpel tunnel and possible diabetic neuropathy. Will call patient in 6 months, if patient is doing well, no followup needed. Call for any questions/concerns. [facility] Patient here for fol low up echo. She has an apt with neurology 08/18. She brought in her new BP cuff for comparison and it read 147/57 L sitting. Still denies chest pain, SOB, palpitations, and lightheadedness/syncope. Review of Systems Cardiovascular: Positive for leg swelling (improving). Musculoskeletal: Positive for muscle weakness. Neurological: Positive for weakness. All other systems reviewed and are negative. [facility] 07-31-2023 Note Cardiovascular Medic anant [facility] SUBJECTIVE Chief Complaint Patient presents with Congestive Heart Failure Hypertension Laura Lawson is a 72 y.o. female here for hospital follow-up. HPI PMHx: resistant HTN, HFpEF, DM II, KJ She was recently admitted to [facility] for acute on chronic HFpEF, hypertensive emergency and possible CVA. She will be following up with PCP and neurology soon. She was also found to have COVID during her admission. Cardiology recommended an ECHO but planned as an outpatient due to + for COVID. She lost about 20# since her recent admission secondary to diuresis. She is currently wearing an event monitor. 07/31/2023 She has been feeling well since last seen. Her BP today his much better, she remembered to take her medications today. She bought a new BP cuff, measurements are reading inaccurate to our readings. She underwent an ECHO which found acute systolic heart failure and a moderate pericardial effusion. She will be seeing neurology in about 2 weeks. Her weight has been stable. Her leg swelling is much better. Denies c/o CP, dyspnea, orthopnea, PND, LE edema, dizziness/LH, palpitations, syncope. She denies c/o headaches, slurred speech, weakness, vision changes, etc. Patient Active Problem List Diagnosis Allergic rhinitis Angiomyolipoma of kidney Benign essential hypertension Cerebrovascular disease Chronic foot ulcer ([facility]) Coronary atherosclerosis Decreased estrogen level Diabetic retinopathy associated with type 2 diabetes mellitus ([facility]) Diaphragmatic hernia Difficulty walking Dyspnea on exertion Generalized osteoarthritis Gout History of arthritis History of hysterectomy Hyperglycemia due to type 2 diabetes mellitus ([facility]) skilled nursing current use of insulin ([facility]) Low back pain Morbid obesity ([facility]) Neoplasm of uncertain behavior of kidney Obstructive sleep apnea syndrome Osteoarthritis of knee Osteoporosis Peripheral venous insufficiency Polyneuropathy due to type 2 diabetes mellitus ([facility]) Preoperative evaluation to rule out surgical contraindication Pulmonary function studies abnormal Pure hypercholesterolemia Renal mass Skin sensation disturbance Type 2 diabetes mellitus without complication ([facility]) Umbilical hernia Uric acid nephrolithiasis NSTEMI (non-ST elevated myocardial infarction) ([facility]) Acute exacerbation of CHF (congestive heart failure) ([facility]) COVID-19 Acquired spondylolisthesis Acute on chronic diastolic heart failure ([facility]) Coronary artery disease (CAD) excluded Diastolic dysfunction GERD (gastroesophageal reflux disease) History of carpal tunnel surgery of right wrist Hyperlipidemia Impaired mobility and endurance Localized edema Lumbar radiculopathy Morbid obesity with body mass index (BMI) of 45.0 to 49.9 in adult ([facility]) Paresthesia of skin Primary osteoarthritis of both knees S/P drug eluting coronary stent placement Ulcer of foot due to type 2 diabetes mellitus ([facility]) Pericardial effusion Past Medical History: Diagnosis Date Abnormal ECG CHF (congestive heart failure) ([facility]) Coronary artery disease Diabetes mellitus ([facility]) Gout Hypertension Myocardial infarction ([facility]) Sleep apnea Family History Problem Relation Name Age of Onset JABARI disease Mother Heart attack Father Social History Tobacco Use Smoking status: Never Smokeless tobacco: Never Substance Use Topics Alcohol use: Not Currently No Known Allergies ROS Cardiovascular: Positive for leg swelling (improving). Musculoskeletal: Positive for muscle weakness. Neurological: Positive for weakness. All other systems reviewed and are negative. OBJECTIVE Visit Vitals BP 127/69 (BP Location: Left arm, Patient Position: Sitting) Pulse 66 Ht 1.575 m (5' 2 ) Wt 103 kg (227 lb) SpO2 96% BMI 41.52 kg/m??? OB Status Postmenopausal Smoking Status Never BSA 2.12 m??? Medications: Current Outpatient Medications: allopurinol (Zyloprim) 300 mg tablet, Take 300 mg by mouth in the morning., Disp: , Rfl: aspirin 81 mg EC tablet, Take 81 mg by mouth in the morning., Disp: , Rfl: baclofen (Lioresal) 10 mg tablet, Take 10 mg by mouth at bedtime., Disp: , Rfl: carvedilol (Coreg) 6.25 mg tablet, Take 1 tablet (6.25 mg) by mouth in the morning and at bedtime for 189 doses., Disp: 60 tablet, Rfl: 3 dapagliflozin propanediol (Farxiga) 10 mg, Take 1 tablet (10 mg) by mouth in the morning for 94 doses. Do not start before July 08, 2023., Disp: 30 tablet, Rfl: 3 hydrALAZINE (Apresoline) 100 mg tablet, Take 100 mg by mouth in the morning, at noon, and at bedtime., Disp: , Rfl: insulin lispro (HumaLOG) 100 unit/mL injection, Patient reports taking three times daily 15 minutes before meals. Reports taking 25 units of Humalog to decrease glucose reading by 100, Disp: , Rfl: meloxicam (Mobic) 15 mg tablet, Take 15 mg by mout (more content not included)... [facility] 07-21-2023 History of Present illness Narrative Subjective Patient ID: Laura Lawson is a 72 y.o. female who presents for Follow-up (Admitted to [facility] 07/02/23 dx: Covid,CHF exac., NSTEMI discharged home 07/07/23 started on farxiga, coreg stopped labetolol pt had follow up appt with cardiology 07/16/23). Flowsheet Row Patient Outreach from 07/09/2023 in [facility] [employer] with Soledad Guerrero, jockey valet Information ED or Hospital Discharge? Hospital Patient has been contacted within two business days of discharge Yes Discharge Date 07/07/23 Discharge [facility] [D/C Acute on Chronic heart Failure, exacerbation w/preserved ejection fraction, HYHA class 2, NSTEMI type!! in the setting of CHF exacerbation, subacute Right cerebellar hemisphere infarct, slurred speech d/t CVA, Covid, Type2 DM, Hypokalemia] Discharged To: Home Setting Engagement Call Start Time 1501 Medications Discharge medications reviewed and reconciled from hospital? Yes Is the patient having any side effects they believe may be caused by any medication additions or changes? No Does the patient have all medications ordered at discharge? Yes Nursing Interventions Nurse provided patient education Is the patient taking all medications as directed (includes completed medication regime)? Yes Nursing Interventions Nurse provided patient education Appointments Does the patient have a primary care provider? Yes [[facility] 07/21/2023 at 10:30] Nursing Interventions Verified appointment date/time/provider Self Management Has home health visited the patient within 72 hours of discharge? Not applicable Has all Durable Medical Equipment (DME) been delivered? -- [using walker] Patient Teaching Does the patient have access to their discharge instructions? Yes Nursing Interventions Reviewed instructions with patient What is the patient's perception of their health status since discharge? Improving Is the patient/caregiver able to teach back the hierarchy of who to call/visit for symptoms/problems? PCP, Specialist, Home Health nurse, Urgent Care, ED, 911 Yes Wrap Up Wrap Up Additional Comments labs, ecg, CXR. Pt transferred from [facility] to [facility], tested positive for covid, negative for covid x2 at [facility]. Pt to follow with Cardiology, appt on 07/16 at 2:20pm. Neurology 08/19/23 [facility] in [place]. Pt reports no shortness of breath. Using walker, no deficit noted. Discussed Fluid restriction 1.5-2L a day. Regular diet- diabetic, heart healthy, low sodium. Pt using CPAP when sleeping. uses 2 pillows. Reviewed with pt to monitor weight daily. If weight gain of 2 pounds in a day or 5 pounds in a week to contact Cardiology. 30 day monitor to be completed. Call End Time 0332 Denies CP,dyspnea,syncope Current Outpatient Medications on File Prior to Visit Medication Sig Dispense Refill allopurinol (Zyloprim) 300 MG tablet TAKE 1 TABLET DAILY 90 tablet 3 aspirin 81 MG EC tablet Take 81 mg by mouth in the morning. atorvastatin (Lipitor) 40 MG tablet Take 1 tablet (40 mg) by mouth at bedtime baclofen (Lioresal) 10 MG tablet Take 1 tablet (10 mg) by mouth at bedtime BD Insulin Syringe U/F 31G X 5/16 1 ML misc USE DIRECTED UNDER THE SKIN TWO TIMES DAILY 180 each 3 Calcium Citrate-Vitamin D (CITRACAL/VITAMIN D PO) Take 2 tablets by mouth in the morning and 2 tablets before bedtime. candesartan (Atacand) 32 MG tablet TAKE 1 TABLET DAILY 90 tablet 3 carvedilol (Coreg) 6.25 MG tablet Take 6.25 mg by mouth in the morning and 6.25 mg in the evening. dapagliflozin (Farxiga) 10 MG Take 10 mg by mouth in the morning. glucose blood test strip 1 each by Other route in the morning and 1 each at noon and 1 each in the evening and 1 each before bedtime. Take before meals. ONE TOUCH ULTRA STRIPS DX: e11.65. HANDICAP PLACARD 5 YEAR 5 Units by Other route in the morning. 5 Year Duration for Handicap Placard. 1 Units 4 hydrALAZINE (Apresoline) 100 MG tablet TAKE 1 TABLET THREE TIMES A DAY WITH FOOD 270 tablet 3 Insulin Lispro (HumaLOG) 100 UNIT/ML solution Inject 25 Units under the skin in the morning and 25 Units at noon and 25 Units in the evening. Inject before meals. insulin syringe-needle U-100 31G X 5/16 0.5 mL misc Inject under the skin 2 (two) times a day. Use as instructed meloxicam (Mobic) 15 MG tablet TAKE 1 TABLET DAILY WITH FOOD 90 tablet 3 nitroglycerin (Nitrostat) 0.[address] 0.3 mg under the tongue every 5 (five) minutes if needed for chest pain. omeprazole (PriLOSEC) [address] capsule TAKE 1 CAPSULE DAILY 30 MINUTES BEFORE MORNING MEAL 90 capsule 3 pen needle 31G x 6 mm misc 2 (two) times a day. Use as instructed potassium chloride CR (Klor-Con M20) 20 MEQ ER tablet Take 20 mEq by mouth in the morning and 20 mEq before bedtime. Do not crush or chew.. torsemide (Demadex) 20 MG tablet Take 1 tablet (20 mg) by mouth in the morning and 1 tablet (20 mg) in the evening. Take before meals. Toujeo Max SoloStar 300 UNIT/ML injection Inject 100 Units under the skin in the morning. Trulicity 1.5 MG/0.5ML solution pen-injector Inject 1.5 mg under the skin 1 (one) time per week No current facility-administered medications on file prior to visit. Allergies Allergen Reactions Gabapentin Palpitations Tramadol Other Social History Tobacco Use Smoking status: Never Smokeless tobacco: Never Substance Use Topics Alcohol use: Never Comment: Caffeine: 1-2 cups per day Drug use: Never Family History Problem Relation Name Age of Onset Other (GERD disease) Mother Skin cancer Mother Other (myocardial infarction) Father Diabetes Father Hypertension Father Heart disease Father No Known Problems Sister Past Medical History: Diagnosis Date Angiomyolipoma of kidney Coronary artery disease (CAD) excluded Diabetes (CMS/HCC) GERD (gastroesophageal reflux disease) Gout Hyperlipidemia (CMS/HCC) Hypertension (CMS/HCC) Kidney stones Sleep apnea Thyroid disease (CMS/HCC) Type 2 diabetes mellitus (CMS/HCC) Umbilical hernia without obstruction and without gangrene Past Surgical History: Procedure Laterality Date BI MAMMOGRAM DIAGNOSTIC BILATERAL 2014 CARPAL TUNNEL RELEASE CORONARY ANGIOPLASTY WITH STENT PLACEMENT 2013 CT ANGIO HEAD 07/04/2023 CT ANGIO HEAD 07/04/2023 CT ANGIOGRAM NECK 07/04/2023 CT ANGIOGRAM NECK 07/04/2023 EYE EXAM 2013 Disease:Diabetes mellitus, type 2 HERNIA REPAIR TN ARTHRD ANT INTERBODY MIN DSC LUMBAR 03/18/2022 L3-L5 Anterior Lumbar Interbody Fusion, Pedicle Screw Replacement THYROIDECTOMY TOTAL VAGINAL HYSTERECTOMY Visit Vitals BP 136/82 Pulse 66 Ht 5' 2.5 Wt 229 lb SpO2 98% BMI 41.22 kg/m Smoking Status Never BSA 2.14 m Review of Systems Constitutional: Positive for fatigue. HENT: Positive for congestion and voice change. Respiratory: Positive for cough, shortness of breath and wheezing. Negative for chest tightness. Cardiovascular: Positive for leg swelling. Negative for chest pain and palpitations. Objective Physical Exam Constitutional: General: She is not in acute distress. Appearance: She is not ill-appearing. Cardiovascular: Rate and Rhythm: Normal rate and regular rhythm. Heart sounds: No murmur heard. Pulmonary: Effort: Accessory muscle usage and prolonged expiration present. Breath sounds: Decreased air movement present. Musculoskeletal: Right lower le+ Pitting Edema present. Left lower le+ Pitting Edema present. Neurological: Mental Status: She is alert. Psychiatric: Mood and Affect: Mood normal. Thought Content: Thought content normal. Judgment: Judgment normal. Assessment/Plan Diagnoses and all orders for this visit: COVID - The patient was seen today in follow up of recent hospital stay. All available hospital records were reviewed and discussed with the patient. Hospital discharge meds were reviewed. Any changes are noted above. 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 documented in this encounter [facility] 07-16-2023 Note Cardiovascular Medic [facility] SUBJECTIVE Chief Complaint Patient presents with Hypertension Laura Lawson is a 72 y.o. female here for hospital follow-up. HPI She was admitted for acute on chronic HFpEF, hypertensive emergency and possible CVA. She will be following up with PCP and neurology soon. She was also found to have COVID during her admission. Cardiology recommended an ECHO but planned as an outpatient due to + for COVID. She lost about 20# since her recent admission secondary to diuresis. She is currently wearing an event monitor. Her BP is elevated today. She states she forgot to take her medications before her appointment. Denies c/o CP, dyspnea, orthopnea, PND, LE edema, dizziness/LH, palpitations, syncope. She denies c/o headaches, slurred speech, weakness, vision changes, etc. Discharge Summary (07/02/2023 - 07/07/2023 ) Final Discharge Diagnosis: #Acute on chronic diastolic heart failure exacerbation with preserved ejection fraction, NYHA class 2 # NSTEMI type II in the setting of CHF exacerbation #Subacute right cerebellar hemisphere infarct # slurred speech due to CVA # COVID infection # type 2 diabetes mellitus, insulin-dependent # hypertension # hypokalemia # obstructive sleep apnea Admission Diagnosis: NSTEMI (non-ST elevated myocardial infarction) ([facility]) [I21.4] HPI and Hospital course: Laura Lawson is an 72 y.o. female who came from [place] with N-STEMI, acute CHF exacerbation, and covid positive. Patient has past medical history of CAD with 4 stents placed. Plavix stopped in August 2022. patient had elevated BNP and troponin. glucose 391. Patient endorses chronic SOB but reports worsening prior to arrival to [place] ED. Denies cough. No heparin drip. patient was given Lasix 40 mg IV while at [place]. Patient tested positive today for covid-19. Her chest X-ray shows decreased lung volume w/ moderate elevation of left hemidiaphragm, compression atelectasis associated w/ the left hemidiaphragm. Patchy densitied w/in left perihilar region noted and are suggestive of atelectasis and or infiltrate. Peribronchial cuffing w/in both hilar regions observed and may be associated with bronchitis. chest x-ray showed vascular congestion. EKG sinus rhythm, first degree AV block, anterolateral myocardial infarction, probably recent. Possible right ventricular hypertrophy. patient was admitted to the stepdown unit, she was seen by cardiology and neurology, her hospitalization course by problem list as follows: #Acute on chronic diastolic heart failure exacerbation with preserved ejection fraction, NYHA class 2 - Patient was given IV Lasix during this admission, cardiology were following closely, they recommended resuming torsemide upon discharge. Labetalol was switched to carvedilol, Farxiga was added. She will be resumed on candesartan on discharge. Echocardiogram was initially ordered but it was not done due to being positive for COVID. #CVA rule out - MRI of the brain is showing tiny focus of acute ischemia in the right cerebellar hemisphere. currently on aspirin and atorvastatin. - neurology recommended aspirin 81 mg and atorvastatin 80 mg and to follow-up with them in the clinic in 4 to 6 weeks. Stroke team aware that echocardiogram is not being done as an inpatient. #COVID ? - positive at [facility] but negative x 2 at [facility] - Remdesivir was discontinued - on room air #DMII insulin dependent - uncontrolled, HgbA1C 10.8 - patient was advised to have close follow-up with her PCP for further adjustment of her insulin regimen. 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 ([facility]) Low back pain Morbid obesity ([facility]) Neoplasm of uncertain behavior of kidney Obstructive sleep apnea syndrome Osteoarthritis of knee Osteoporosis Peripheral venous insufficiency Polyneuropathy due to type 2 diabetes mellitus ([facility]) Preoperative evaluation to rule out surgical contraindication Pulmonary function studies abnormal Pure hypercholesterolemia Renal mass Skin sensation disturbance Type 2 diabetes mellitus without complication ([facility]) Umbilical hernia Uric acid nephrolithiasis NSTEMI (non-ST elevated myocardial infarction) ([facility]) Acute exacerbation of CHF (congestive heart failure) ([facility]) COVID-19 Past Medical History: Diagnosis Date Abnormal ECG CHF (more content not included)... [facility] 07-16-2023 Note Patient here for [facility] for CHF and NSTEMI. She was discharged wearing a 30 day event monitor. She is doing very well s/p hospital stay. Denies chest pain, SOB, palpitations, and lightheadedness/syncope. BP is severely elevated in the office today, as she states she has not taken any medications today. Review of Systems Cardiovascular: Positive for leg swelling (improving). Musculoskeletal: Positive for muscle weakness. Neurological: Positive for weakness. All other systems reviewed and are negative. [facility] 07-08-2023 Miscellaneous Notes This patient needs outpatient follow up in the [facility] in 4-6 weeks ([facility] follow up), also she needs 30-day event monitor. (Being done through [facility]) Called patient and vm is not set up. No answer Spoke with Latrice, patients roommate and transportation, and scheduled appt documented in this encounter [facility] 07-08-2023 Telephone encounter Note This patient needs outpatient follow up in the [facility] in 4-6 weeks ([facility] follow [facility]), also she needs 30-day event monitor. (Being done through [facility]) [facility] 07-08-2023 Telephone encounter Note Called patient and vm is not set up. No answer Spoke with Latrice, patients roommate and transportation, and scheduled appt [facility] 07-07-2023 Note Hospital Medicine Discharge Summary Final Discharge Diagnosis: #Acute on chronic diastolic heart failure exacerbation with preserved ejection fraction, NYHA class 2 # NSTEMI type II in the setting of CHF exacerbation #Subacute right cerebellar hemisphere infarct # slurred speech due to CVA # COVID infection # type 2 diabetes mellitus, insulin-dependent # hypertension # hypokalemia # obstructive sleep apnea Admission Diagnosis: NSTEMI (non-ST elevated myocardial infarction) ([facility]) [I21.4] HPI and Hospital course: Luara Lawson is an 72 y.o. female who came from [place] ED with N-STEMI, acute CHF exacerbation, and covid positive. Patient has past medical history of CAD with 4 stents placed. Plavix stopped in August 2022. patient had elevated BNP and troponin. glucose 391. Patient endorses chronic SOB but reports worsening prior to arrival to [facility] ED. Denies cough. No heparin drip. patient was given Lasix 40 mg IV while at [place]. Patient tested positive today for covid-19. Her chest X-ray shows decreased lung volume w/ moderate elevation of left hemidiaphragm, compression atelectasis associated w/ the left hemidiaphragm. Patchy densitied w/in left perihilar region noted and are suggestive of atelectasis and or infiltrate. Peribronchial cuffing w/in both hilar regions observed and may be associated with bronchitis. chest x-ray showed vascular congestion. EKG sinus rhythm, first degree AV block, anterolateral myocardial infarction, probably recent. Possible right ventricular hypertrophy. patient was admitted to the stepdown unit, she was seen by cardiology and neurology, her hospitalization course by problem list as follows: #Acute on chronic diastolic heart failure exacerbation with preserved ejection fraction, NYHA class 2 - Patient was given IV Lasix during this admission, cardiology were following closely, they recommended resuming torsemide upon discharge. Labetalol was switched to carvedilol, Farxiga was added. She will be resumed on candesartan on discharge. Echocardiogram was initially ordered but it was not done due to being positive for COVID. #CVA rule out - MRI of the brain is showing tiny focus of acute ischemia in the right cerebellar hemisphere. currently on aspirin and atorvastatin. - neurology recommended aspirin 81 mg and atorvastatin 80 mg and to follow-up with them in the clinic in 4 to 6 weeks. Stroke team aware that echocardiogram is not being done as an inpatient. #COVID ? - positive at [facility] but negative x 2 at [facility] - Remdesivir was discontinued - on room air #DMII insulin dependent - uncontrolled, HgbA1C 10.8 - patient was advised to have close follow-up with her PCP for further adjustment of her insulin regimen. Dear Dr. Arsenio MD, [place] is advised to follow up with you within 1-2 weeks. Follow-up with: Cardiology and Neurology Scheduled appointments: Future Appointments Date Time Provider Department Center 07/10/2023 3:00 PM HOLLEY Zamora [facility] Your medication list START taking these medications Instructions Last Dose Given Next Dose Due carvedilol 6.25 mg tablet Commonly known as: Coreg Take 1 tablet (6.25 mg) by mouth in the morning and at bedtime for 189 doses. dapagliflozin propanediol 10 mg Commonly known as: Farxiga Start taking on: July 08, 2023 Take 1 tablet (10 mg) by mouth in the morning for 94 doses. Do not start before July 08, 2023. miconazole 2 % vaginal cream Commonly known as: Micotin Insert 1 applicator into the vagina at bedtime for 5 doses. CONTINUE taking these medications Instructions Last Dose Given Next Dose Due allopurinol 300 mg tablet Commonly known as: Zyloprim aspirin 81 mg EC tablet atorvastatin 40 mg tablet Commonly known as: Lipitor baclofen 10 mg tablet Commonly known as: Lioresal candesartan 32 mg tablet Commonly known as: Atacand hydrALAZINE 100 mg tablet Commonly known as: Apresoline insulin lispro 100 unit/mL injection Commonly known as: HumaLOG meloxicam 15 mg tablet Commonly known as: Mobic nitroglycerin 0.3 mg SL tablet Commonly known as: Nitrostat omeprazole [address] capsule Commonly known as: PriLOSEC potassium chloride CR 20 mEq ER tablet Commonly known as: Klor-Con M20 torsemide 20 mg tablet Commonly known as: Demadex Toujeo Max U-300 SoloStar 300 unit/mL (3 mL) injection Generic drug: insulin glargine Trulicity 1.5 mg/0.5 mL pen injector Generic drug: dulaglutide STOP taking these medications labetalol 300 mg tablet Commonly known as: Normodyne Where to Get Your Medications These medications were sent to [facility]/pharmacy #[id number] [place] [address] carvedilol 6.25 mg tablet dapagliflozin propanediol 10 mg miconazole 2 % vaginal cream Laura has No Known Allergies. Dispositi (more content not included)... [facility] 07-07-2023 Note Attestation signed by Devon Montes De Oca MD at 07/08/2023 5:24 PM IDevon MD, personally performed the face to face diagnostic evaluation on this patient, and was physically present during the critical portions of the service. I was directly involved in the management of the patient. I have reviewed the Resident/Fellow's history, exam and MDM and agree with the assessment and plan. I have spent more than 50% of this 35 minute encounter counseling and/or coordination of care with the patient. I personally discussed with the patient the plan going forward, as documented by the Resident/Fellow above. Devon Montes De Oca MD Clinical Asst. Professor Department of Neurology-Stroke Contact: ([facility]) Disclaimer: Portions of the record/note may have been created with voice recognition software. Occasional wrong-word or '[id number]' substitutions may have occurred due to the inherent limitations of voice recognition software. STROKE/ NEUROINTERVENTIONAL DAILY PROGRESS NOTE SUBJECTIVE: Laura Lawson is a 72 y.o. White female who presented initially as a case of non-STEMI, acute CHF exacerbation in case of being COVID-positive. Stroke alert initially was called due to slurred speech and questionable aphasia. Patient was found to be hypertensive. Symptoms improved with blood pressure management. However, brain MRI showed small DWI signal in the right cerebellar hemisphere. ROS: Neurological ROS: no TIA or stroke symptoms CURRENT MEDICATIONS REVIEWED: Yes PERTINENT MEDICATIONS ARE: aspirin, 81 mg, oral, Daily atorvastatin, 80 mg, oral, Nightly carvedilol, 6.25 mg, oral, BID dapagliflozin propanediol, 10 mg, oral, Daily furosemide, 40 mg, intravenous, Daily heparin (porcine), 5,000 Units, subcutaneous, q12h FRANNY hydrALAZINE, 100 mg, oral, TID insulin aspart, 0-20 Units, subcutaneous, Before meals & nightly insulin glargine, 10 Units, subcutaneous, BID losartan, 50 mg, oral, Daily miconazole, 1 applicator, vaginal, Nightly PHYSICAL EXAM: Vital Signs: Blood pressure 159/64, pulse 64, temperature 36.6 ???C (97.9 ???F), resp. rate 18, height 1.575 m (5' 2 ), weight 105 kg (231 lb 7.7 oz), SpO2 96 %. Respiratory Source: @RESPSOURCE@ Admission Weight: Weight: 114 kg (250 lb 7.1 oz) General Appearance: Healthy, alert, active, cooperative, and in no distress Head: normocephalic, without obvious abnormality, atraumatic NIH Stroke Scale Time: 8:45 AM Person Administering Scale: Karyn Garrett Administer stroke scale items in the order listed. Record performance in each category after each subscale exam. Do not go back and change scores. Follow directions provided for each exam technique. Scores should reflect what the patient does, not what the clinician thinks the patient can do. The clinician should record answers while administering the exam and work quickly. Except where indicated, the patient should not be coached (i.e., repeated requests to patient to make a special effort). 1a Level of consciousness: 0=alert; keenly responsive 1b. LOC questions: 0=Performs both tasks correctly 1c. LOC commands: 0=Performs both tasks correctly 2. Best Gaze: 0=normal 3. Visual: 0=No visual loss 4. Facial Palsy: 0=Normal symmetric movement 5a. Motor left arm: 0=No drift, limb holds 90 (or 45) degrees for full 10 seconds 5b. Motor right arm: 0=No drift, limb holds 90 (or 45) degrees for full 10 seconds 6a. motor left le=No drift, limb holds 90 (or 45) degrees for full 10 seconds 6b Motor right le=No drift, limb holds 90 (or 45) degrees for full 10 seconds 7. Limb Ataxia: 0=Absent 8. Sensory: 0=Normal; no sensory loss 9. Best Language: 0=No aphasia, normal 10. Dysarthria: 0=Normal 11. Extinction and Inattention: 0=No abnormality Total: 0 LAB REVIEW Lab Results Component Value Date HGBA1C 10.8 (H) 07/03/2023 Lab Results Component Value Date CHOL 170 07/03/2023 Lab Results Component Value Date LDLCALC 87 07/03/2023 Lab Results Component Value Date TRIG 105 07/03/2023 IMAGING CTA : Rt. Mid P2 stenosis otherwise unremarkable Brain MRI: Subacute Rt. Cerebellar hemisphere DWI signal ASSESSMENT/ PLAN: 1. Transient episode of slurred speech Seems to be related to hypertensive crisis Incidental finding of right cerebellar hemisphere subacute infarct Continue aspirin 81 mg daily High intensity statin Echocardiogram to rule out LV thrombus, Ideally needs to be done inpatient but since it will not be done before 07/14/2023 ( due to +ve COVID per nurse), then consider getting outpatient if it easier. Patient will need 30-day event monitor in the outpatient setting Will arrange follow-up appointment in the stroke clinic in 4 to 6-week If you have any questions or concerns please c (more content not included)... [facility] 07-06-2023 Note Hospital Medicine Daily Progress Note - 07/06/2023 11:13 AM; Room: [address] [place] [address] Admission: 07/02/2023 11:39 PM; Length of stay: 4 days THE HOSPITALIST TEAM PREFERS TO USE [employer] CHAT FOR COMMUNICATION 7AM-7PM. IF I DO NOT RESPOND WITHIN 15 MINUTES, PLEASE PAGE ME/CALL THROUGH THE CDL INSTRUCTOR. FROM 7PM-7AM, PLEASE PAGE [phone](COVR) Code Status: Full Code Barriers to Discharge: CHF treatment, Pneding ECHO!!! Expected Discharge Date: 1 to 2 days Discharge Destination: to be determined Overview Patient is seen for evaluation and management of CHF treatment. Subjective seen and evaluated at the bedside, currently on CPAP. She is reporting no new symptoms, she reports overall improvement with her symptoms. fair appetite. Discussed with RN. Physical Exam Visit Vitals BP 156/68 Pulse 59 Temp 36.3 ???C (97.4 ???F) Resp 24 Intake/Output Summary (Last 24 hours) at 07/06/2023 1113 Last data filed at 07/06/2023 0422 Gross per 24 hour Intake 1645 ml Output 400 ml Net 1245 ml Physical Exam Eyes: Pupils: Pupils are equal, round, and reactive to light. Cardiovascular: Rate and Rhythm: Normal rate and regular rhythm. Pulmonary: Effort: Pulmonary effort is normal. Breath sounds: Normal breath sounds. Abdominal: General: Bowel sounds are normal. Palpations: Abdomen is soft. Neurological: Mental Status: She is alert and oriented to person, place, and time. Estimated body mass index is 42.1 kg/m??? as calculated from the following: Height as of this encounter: 1.575 m (5' 2 ). Weight as of this encounter: 104 kg (230 lb 2.6 oz). Active Inpatient Problems Principal Problem: NSTEMI (non-ST elevated myocardial infarction) ([facility]) Active Problems: Benign essential hypertension Coronary atherosclerosis Dyspnea on exertion Hyperglycemia due to type 2 diabetes mellitus ([facility]) Morbid obesity ([facility]) Obstructive sleep apnea syndrome Peripheral venous insufficiency Acute exacerbation of CHF (congestive heart failure) ([facility]) COVID-19 Assessment and Plan #Acute on chronic diastolic heart failure exacerbation with preserved ejection fraction, NYHA class 2 - lasix 40mg IV daily - Cards following - GDMT: Farxiga, coreg, losartan - echo is pending #CVA rule out - MRI of the brain is showing tiny focus of acute ischemia in the right cerebellar hemisphere. currently on aspirin and atorvastatin. - Pending final recommendations from stroke team. stroke team are waiting for echo results #COVID ? - positive at [facility] but negative x 2 at [facility] - will DC remdisivir - on room air #DMII insulin dependent - uncontrolled, HgbA1C 10.8 - hypoglycemic this AM - reduce lantus dose #Hypertension - cont home meds #Hypokalemia - replace #KJ - home CPAP at bedside #Hypomagnesia - replace as needed #Obese class 2 - BMI 45 VTE Prophylaxis: Heparin subcutaneous Scheduled Meds aspirin, 81 mg, oral, Daily atorvastatin, 80 mg, oral, Nightly carvedilol, 6.25 mg, oral, BID dapagliflozin propanediol, 10 mg, oral, Daily furosemide, 40 mg, intravenous, Daily heparin (porcine), 5,000 Units, subcutaneous, q12h FRANNY hydrALAZINE, 100 mg, oral, TID insulin aspart, 0-20 Units, subcutaneous, Before meals & nightly insulin glargine, 10 Units, subcutaneous, BID losartan, 50 mg, oral, Daily miconazole, 1 applicator, vaginal, Nightly Pertinent Investigations Hematology: Results from last 7 days Lab Units 07/03/23 0046 WBC AUTO 10*3/uL 8.64 HEMOGLOBIN g/dL 12.7 HEMATOCRIT % 39.8 MCV fL 91.9 PLATELETS AUTO 10*3/uL 354 Chemistry: Results from last 7 days Lab Units 07/06/23 0435 07/05/23 0621 07/04/23 0530 07/03/23 0902 07/03/23 0046 SODIUM mmol/L 133* 134* 136 -- 134* POTASSIUM mmol/L 3.7 3.4* 3.2* -- 3.6 CHLORIDE mmol/L 101 100 103 -- 98 CO2 mmol/L 28 27 30 -- 27 BUN mg/dL 23 14 17 -- 11 CREATININE mg/dL 0.95 0.76 0.65 -- 0.71 GLUCOSE mg/dL 164* 87 69* -- 323* MAGNESIUM mg/dL 2.0 1.6* -- < > 1.4* CALCIUM mg/dL 8.9 9.1 9.4 -- 9.4 PHOSPHORUS mg/dL -- -- -- -- 2.7 < > = values in this interval not displayed. Results from last 7 days Lab Units 07/05/23 0621 07/04/23 0530 07/03/23 0046 AST U/L 20 17 23 ALT U/L 15 19 24 ALK PHOS U/L 82 74 102 BILIRUBIN TOTAL mg/dL 1.0 0.8 1.2* Results from last 7 days Lab Units 07/06/23 0641 07/05/23 2048 07/05/23 1616 07/05/23 1121 07/05/23 0700 07/05/23 0621 POCT GLUCOSE mg/dL 150* 238* 283* 141* 103 87 Historical Values: (Includes values prior to this admission) Lab Results Component Value Date HDL 62 07/03/2023 LDL 108 07/03/2023 No results found for: NRDAITIL22 , IRON , TIBC , C3 , C4 , JEREMIAH , CANCA , ASO , PSA , CEA , CA125 , CA199 , AFP , CA153 Imaging MR brain wo contrast Narrative: 0MR BRAIN WO CONTRAST 07/04/2023 10:21 PM CLINICAL INDICATIONS: Stroke, focal neurological deficit PROTOCOL: Multiplanar multisequence MRI (more content not included)... [facility] 07-06-2023 Note Attestation signed by Elliott Clements MD at 07/07/2023 7:47 PM Above reviewed. I concur with Fellow. Stroke team reviewed MRI of the brain showing small punctate infract in the right cerebellar hemisphere. Etiology is not identified yet pending echocardiogram. For the time being continue Aspirin, Lipitor 80. Stroke team will give final recs once echo is completed. Patient will need 30 days playground monitor after discharge. ENRIQUE CARPENTER MD Neurointervantional Fellow. [facility] 07-06-2023 Note Subjective F/U NSTEM I, COVID +, acute on Chronic HFpEF Assessed at bedside. No acute events overnight. Denied chest pain, SOB, fever, chills, Orthopnea, or palpitations. Remains on room air and saturating well Tele Sinus to Sinus evan 54-82- IVCD noted Objective Patient Vitals for the past 24 hrs: BP Temp Temp src Pulse Resp SpO2 Weight 07/06/23 0430 163/66 36.4 ???C (97.5 ???F) -- 52 13 93 % 104 kg (230 lb 2.6 oz) 07/06/23 0415 (!) 182/99 -- -- 66 -- 95 % -- 07/05/23 2330 145/65 -- -- 63 18 93 % -- 07/05/23 2140 130/67 -- -- 60 22 95 % -- 07/05/232019 (!) 100/40 36.4 ???C (97.5 ???F) -- 65 19 95 % -- 07/05/23 1715 126/56 36.2 ???C (97.2 ???F) Temporal 56 22 95 % -- 07/05/23 1200 (!) 115/47 36.4 ???C (97.6 ???F) Temporal 66 26 95 % -- 07/05/23 1103 109/59 -- -- 64 -- -- -- 07/05/23 0810 (!) 114/97 -- -- 61 21 92 % -- Physical Exam GENERAL: AOx3, in no acute distress. HEAD: Atraumatic, normocephalic. EYES: STEVEN, EOMI. NECK: No JVD present. CARDIAC: RRR. No murmur, rubs, or gallops. RESPIRATORY: Bibasilar crackles ABDOMEN: Soft, nontender EXTREMITIES: +2 bilateral lower extremity edema, peripheral pulses are 2+ bilaterally. NEURO: No focal deficits Lab Results Component Value Date NA 133 (L) 07/06/2023 K 3.7 07/06/2023 CL 101 07/06/2023 ANIONGAP 8 07/06/2023 BUN 23 07/06/2023 CREATININE 0.95 07/06/2023 CALCIUM 8.9 07/06/2023 MG 2.0 07/06/2023 PHOS 2.7 07/03/2023 Lab Results Component Value Date BILITOT 1.0 07/05/2023 ALKPHOS 82 07/05/2023 AST 20 07/05/2023 ALT 15 07/05/2023 PROT 4.9 (L) 07/05/2023 ALBUMIN 3.0 (L) 07/05/2023 Lab Results Component Value Date WBC 8.64 07/03/2023 RBC 4.33 07/03/2023 HGB 12.7 07/03/2023 HCT 39.8 07/03/2023 MCV 91.9 07/03/2023 MCH 29.3 07/03/2023 MCHC 31.9 (L) 07/03/2023 RDW 15.1 (H) 07/03/2023 NEUTOPHILPCT 66.6 07/03/2023 LYMPHOPCT 17.6 (L) 07/03/2023 MONOPCT 13.9 (H) 07/03/2023 EOSPCT 0.9 07/03/2023 BASOPCT 0.7 07/03/2023 NEUTROABS 5.75 07/03/2023 LYMPHSABS 1.52 07/03/2023 MONOSABS 1.20 (H) 07/03/2023 EOSABS 0.08 07/03/2023 BASOSABS 0.06 07/03/2023 PLT 354 07/03/2023 NRBC 0.0 07/03/2023 ECG 12 lead Normal sinus rhythm Non-specific intra-ventricular conduction block Lateral infarct , age undetermined Abnormal ECG When compared with ECG of 07-DEC-2013 11:48, Questionable change in QRS duration Lateral infarct is now Present Confirmed by Gerardo Morris ([id number]) on 07/03/2023 9:02:17 AM XR chest 1 view Narrative: XR CHEST 1 VIEW 07/03/2023 5:31 AM CLINICAL INDICATIONS: Shortness of breath congestive heart failure COMPARISON: None Impression: Impression: 1. The cardiac silhouette is enlarged. There are no significant infiltrates or effusions. There is no pneumothorax. Assessment/Plan Principal Problem: NSTEMI (non-ST elevated myocardial infarction) ([facility]) Active Problems: Benign essential hypertension Coronary atherosclerosis Dyspnea on exertion Hyperglycemia due to type 2 diabetes mellitus ([facility]) Morbid obesity ([facility]) Obstructive sleep apnea syndrome Peripheral venous insufficiency Acute exacerbation of CHF (congestive heart failure) ([facility]) COVID-19 NSTEMI, Likely type II in setting of heart failure exacerbation with peak troponin 0.12 Acute on chronic heart failure exacerbation 60 % TTE 05/2022, NYHA class II COVID-19 positive CAD status post stent x 4 Type 2 diabetes mellitus Plan: Elevated troponin is in the setting of heart failure exacerbation, less likely type II myocardial infarction. No further ischemic evaluation needed at this time Can transition back to home regime of torsemide at discharge Continue ASA, lipitor, Farxiga, Coreg, losartan No acute or concerning symptoms, pt requests to be dc'd today to home, therefore from a cardiology perspective she can have outpt echocardiogram and f/U with heart failure as scheduled for further evaluation and management Hospitalist updated. Will sign off from a cardiology perspective, please call for any concerns Dulce Garcia CUSTOMER OPERATIONS MANAGER Division of Cardiology, [facility] Ph- [phone] Pager- [phone] Email- [email or web address] 07-05-2023 Note Speech Tmr Teacher ology Speech Language Pathology Evaluation Patient Name: Laura Lawson : 1950 Today's Date: 07/05/2023 Date of Evaluation: 07/05/2023 General Subjective: Laura Lawson is an 72 y.o. female who came from [facility] with N-STEMI, acute CHF exacerbation, and covid positive. Patient has past medical history of CAD with 4 stents placed. 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 ([facility]/HCC) Low back pain Morbid obesity ([facility]/HCC) Neoplasm of uncertain behavior of kidney Obstructive sleep apnea syndrome Osteoarthritis of knee Osteoporosis Peripheral venous insufficiency Polyneuropathy due to type 2 diabetes mellitus ([facility]/HCC) Preoperative evaluation to rule out surgical contraindication Pulmonary function studies abnormal Pure hypercholesterolemia Renal mass Skin sensation disturbance Type 2 diabetes mellitus without complication ([facility]/HCC) Umbilical hernia Uric acid nephrolithiasis NSTEMI (non-ST elevated myocardial infarction) ([facility]/HCC) Acute exacerbation of CHF (congestive heart failure) ([facility]) COVID-19 Past Medical History: Diagnosis Date Coronary artery disease Diabetes mellitus ([facility]/HCC) Gout Hypertension Sleep apnea Past Surgical History: Procedure Laterality Date BACK SURGERY CARDIAC CATHETERIZATION CARPAL TUNNEL RELEASE HYSTERECTOMY THYROID SURGERY General Visit Info General Subjective: Laura Lawson is an 72 y.o. female who came from [facility] with N-STEMI, acute CHF exacerbation, and covid positive. Patient has past medical history of CAD with 4 stents placed. Chart Reviewed: Yes Treatment Duration (min): 15 Minutes Family/Caregiver Present: No Cognition Cognition Overall Cognitive Status: Within Functional Limits Arousal/Alertness: Appropriate responses to stimuli Orientation Level: Oriented X4 Following Commands: Follows all commands and directions without difficulty Safety Judgment: Good awareness of safety precautions Awareness of Errors: Good awareness of errors made Deficits: Fully aware of deficits Attention Span: Appears intact Memory: Appears intact Oral/Motor Assessment Oral/Motor Labial ROM: Within Functional Limits Labial Symmetry: Within Functional Limits Labial Strength: Within Functional Limits Lingual ROM: Within Functional Limits Lingual Symmetry: Within Functional Limits Lingual Strength: Within Functional Limits Facial ROM: Within Functional Limits Facial Symmetry: Within Functional Limits Facial Strength: Within Functional Limits Vocal Quality: Within Functional Limits Apraxia: None present Word Level: Intelligible Sentence Level: Intelligible Conversational: Intelligible Breath Support: Adequate for speech Hearing: Exceptions to WFL Hearing Exceptions: Hard of hearing/hearing concerns Comprehension Auditory Comprehension Yes/No Questions: Within Functional Limits Commands: Within Functional Limits Conversation: Within Functional Limits Expression Verbal Expression Primary Mode of Expression: Verbal Primary Language: Estonian Repetition: Intact Sentence Completion: Intact Open Ended Questions: Intact Conversation: Intact Higher Level Cognitive Functions Higher Level Cognitive Functions Attention: Within Functional Limits Memory: Unable to assess (Unable to assess, due to pt hearing status.) Problem Solving: Within Functional Limits Insight: Within function limits Impulsive: Within functional limits Processing Speed: Within funtional limits Perseveration: Not present Assessment/Plan SKIMMER Assessment Medical Staff Made Aware: Yes Plan SKIMMER - OK to Discharge: Yes Written/Dictated by Gertrudis Marshall CCC-SKIMMER at 1:15 PM [facility] 07-05-2023 Note Hospital Medicine Daily Progress Note - 07/05/2023 12:18 PM; Room: [address] [place] [address] Admission: 07/02/2023 11:39 PM; Length of stay: 3 days THE HOSPITALIST TEAM PREFERS TO USE Q-Sensei CHAT FOR COMMUNICATION 7AM-7PM. IF I DO NOT RESPOND WITHIN 15 MINUTES, PLEASE PAGE ME/CALL THROUGH THE CDL INSTRUCTOR. FROM 7PM-7AM, PLEASE PAGE [phone](COVR) Code Status: Full Code Barriers to Discharge: CHF treatment Expected Discharge Date: 2 to 3 days Discharge Destination: to be determined Overview Patient is seen for evaluation and management of CHF treatment. Subjective seen and evaluated at the bedside, currently on CPAP. She is reporting no new symptoms, she reports overall improvement with her symptoms. fair appetite. Discussed with RN. Physical Exam Visit Vitals BP 109/59 Pulse 64 Temp 36.4 ???C (97.5 ???F) (Temporal) Resp 21 Intake/Output Summary (Last 24 hours) at 07/05/2023 1218 Last data filed at 07/05/2023 0405 Gross per 24 hour Intake 720 ml Output 1400 ml Net -680 ml Physical Exam Eyes: Pupils: Pupils are equal, round, and reactive to light. Cardiovascular: Rate and Rhythm: Normal rate and regular rhythm. Pulmonary: Effort: Pulmonary effort is normal. Breath sounds: Normal breath sounds. Abdominal: General: Bowel sounds are normal. Palpations: Abdomen is soft. Neurological: Mental Status: She is alert and oriented to person, place, and time. Estimated body mass index is 43.79 kg/m??? as calculated from the following: Height as of this encounter: 1.575 m (5' 2 ). Weight as of this encounter: 109 kg (239 lb 6.7 oz). Active Inpatient Problems Principal Problem: NSTEMI (non-ST elevated myocardial infarction) ([facility]) Active Problems: Benign essential hypertension Coronary atherosclerosis Dyspnea on exertion Hyperglycemia due to type 2 diabetes mellitus ([facility]) Morbid obesity ([facility]) Obstructive sleep apnea syndrome Peripheral venous insufficiency Acute exacerbation of CHF (congestive heart failure) ([facility]) COVID-19 Assessment and Plan #Acute on chronic diastolic heart failure exacerbation with preserved ejection fraction, NYHA class 2 - lasix 40mg IV daily - Cards following - GDMT: Farxiga, coreg, losartan - echo is ordered, it is not done due to COVID-positive status #CVA rule out - MRI of the brain is showing tiny focus of acute ischemia in the right cerebellar hemisphere. - Pending final recommendations from stroke team. #COVID ? - positive at [facility] but negative x 2 at [facility] - will DC remdisivir - on room air #DMII insulin dependent - uncontrolled, HgbA1C 10.8 - hypoglycemic this AM - reduce lantus dose #Hypertension - cont home meds #Hypokalemia - replace #KJ - home CPAP at bedside #Hypomagnesia - replace as needed #Obese class 2 - BMI 45 VTE Prophylaxis: Heparin subcutaneous Scheduled Meds aspirin, 81 mg, oral, Daily atorvastatin, 80 mg, oral, Nightly carvedilol, 6.25 mg, oral, BID dapagliflozin propanediol, 10 mg, oral, Daily furosemide, 40 mg, intravenous, Daily heparin (porcine), 5,000 Units, subcutaneous, q12h FRANNY hydrALAZINE, 100 mg, oral, TID insulin aspart, 0-20 Units, subcutaneous, Before meals & nightly insulin glargine, 35 Units, subcutaneous, BID losartan, 50 mg, oral, Daily Pertinent Investigations Hematology: Results from last 7 days Lab Units 07/03/23 0046 WBC AUTO 10*3/uL 8.64 HEMOGLOBIN g/dL 12.7 HEMATOCRIT % 39.8 MCV fL 91.9 PLATELETS AUTO 10*3/uL 354 Chemistry: Results from last 7 days Lab Units 07/05/23 0621 07/04/23 0530 07/03/23 0902 07/03/23 0046 SODIUM mmol/L 134* 136 -- 134* POTASSIUM mmol/L 3.4* 3.2* -- 3.6 CHLORIDE mmol/L 100 103 -- 98 CO2 mmol/L 27 30 -- 27 BUN mg/dL 14 17 -- 11 CREATININE mg/dL 0.76 0.65 -- 0.71 GLUCOSE mg/dL 87 69* -- 323* MAGNESIUM mg/dL 1.6* -- 1.9 1.4* CALCIUM mg/dL 9.1 9.4 -- 9.4 PHOSPHORUS mg/dL -- -- -- 2.7 Results from last 7 days Lab Units 07/05/23 0621 07/04/23 0530 07/03/23 0046 AST U/L 20 17 23 ALT U/L 15 19 24 ALK PHOS U/L 82 74 102 BILIRUBIN TOTAL mg/dL 1.0 0.8 1.2* Results from last 7 days Lab Units 07/05/23 1121 07/05/23 0700 07/05/23 0621 07/05/23 0410 07/04/23204407/04/232019 POCT GLUCOSE mg/dL 141* 103 87 71 186* 69* Historical Values: (Includes values prior to this admission) Lab Results Component Value Date HDL 62 07/03/2023 LDL 108 07/03/2023 No results found for: [id number] , IRON , TIBC , C3 , C4 , JEREMIAH , CANCA , ASO , PSA , CEA , CA125 , CA199 , AFP , CA153 Imaging MR brain wo contrast Narrative: 0MR BRAIN WO CONTRAST 07/04/2023 10:21 PM CLINICAL INDICATIONS: Stroke, focal neurological deficit PROTOCOL: Multiplanar multisequence MRI of the brain without contrast COMPARISON: CTA head 07/04/2023 FINDINGS: Tiny focal area of restricted diffusion in the right cerebellar hemisphere (series 2A, image 10). Subtle T2 FLAIR (more content not included)... [facility] 07-05-2023 Note Physical Therapy Physical Therapy Evaluation Patient Name: Laura Lawson : 1950 Today's Date: 07/05/2023 Time In: 1139 Time Out: 1152 Total Time: 13 min General Family/Caregiver Present: No Subjective: Pt in recliner upon arrival stating that she has been walking to/from the bathroom with her RW just fine. HPI Per chart review: Pt is a 72 y.o. female with a past medical history significant for CAD status post stents x 4, heart failure who presented with shortness of breath and was found to have NSTEMI, acute heart failure exacerbation and COVID-positive at [facility]. Patient stated that she has not been compliant with torsemide due to having upper respiratory symptoms for the last week. She stated that she felt short of breath even at rest. Labs were significant for troponin 180, BNP 19,000. She was given Lasix 40 mg IV. Chest x-ray demonstrated Vascular congestion and bilateral effusions.EKG with sinus rhythm and first-degree AV block. Cardiology was consulted for NSTEMI and congestive heart failure exacerbation. Patient Active Problem List Diagnosis Allergic rhinitis Angiomyolipoma of kidney Benign essential hypertension Cerebrovascular disease Chronic foot ulcer (CMS/HCC) Coronary atherosclerosis Decreased estrogen level Diabetic retinopathy associated with type 2 diabetes mellitus (CMS/HCC) Diaphragmatic hernia Difficulty walking Dyspnea on exertion Generalized osteoarthritis Gout History of arthritis History of hysterectomy Hyperglycemia due to type 2 diabetes mellitus (CMS/HCC) skilled nursing current use of insulin ([facility]/HCC) Low back pain Morbid obesity ([facility]/HCC) Neoplasm of uncertain behavior of kidney Obstructive sleep apnea syndrome Osteoarthritis of knee Osteoporosis Peripheral venous insufficiency Polyneuropathy due to type 2 diabetes mellitus (CMS/HCC) Preoperative evaluation to rule out surgical contraindication Pulmonary function studies abnormal Pure hypercholesterolemia Renal mass Skin sensation disturbance Type 2 diabetes mellitus without complication (CMS/HCC) Umbilical hernia Uric acid nephrolithiasis NSTEMI (non-ST elevated myocardial infarction) (CMS/HCC) Acute exacerbation of CHF (congestive heart failure) ([facility]/HCC) COVID-19 Past Medical History: Diagnosis Date Coronary artery disease Diabetes mellitus (CMS/HCC) Gout Hypertension Sleep apnea Past Surgical History: Procedure Laterality Date BACK SURGERY CARDIAC CATHETERIZATION CARPAL TUNNEL RELEASE HYSTERECTOMY THYROID SURGERY Precautions Precautions Medical Precautions: IV, telemetry Pain Pain Assessment Pain Assessment: No/denies pain Cognition Cognition Overall Cognitive Status: Within Functional Limits Home Living Home Living Type of Home: House Lives With: (w/ friend) Home Adaptive Equipment: Walker rolling, Sock aid Home Layout: One level Home Access: Stairs to enter with rails Entrance Stairs-Rails: (1 rail) Entrance Stairs-Number of Steps: 3-4 Bathroom Shower/Tub: Walk-in shower Bathroom Toilet: Standard Bathroom Equipment: Raised toilet seat with rails, Built-in shower seat Prior Level of Function Prior Function Level of [place]: Independent with ADLs and functional transfers, Independent with homemaking with ambulation Prior Functional Mobility: Independent with rolling walker General Assessments Sensation Light Touch: Partial deficits in the RUE, Partial deficits in the LUE (Baseline N/T in YANETH hands from premorbid carpal tunnel) Coordination Movements are Fluid and Coordinated: Yes Static Sitting Balance Static Sitting-Balance Support: Feet supported, No upper extremity supported Static Sitting-Level of Assistance: Independent Dynamic Sitting Balance Dynamic Sitting-Balance Support: Feet supported, No upper extremity supported Dynamic Sitting Balance-Level of Assistance: Independent Static Standing Balance Static Standing-Balance Support: Right upper extremity supported, Left upper extremity supported, With device (RW) Static Standing-Level of Assistance: Independent Dynamic Standing Balance Dynamic Standing-Balance Support: With device, Right upper extremity supported, Left upper extremity supported (RW) Dynamic Standing Balance-Level of Assistance: Independent Functional Assessments Bed Mobility Bed Mobility: Yes Bed Mobility 1 Bed Mobility From 1: Supine Bed Mobility Type 1: To and from Bed Mobility to 1: Short sit Level of Assistance 1: Independent Bed Mobility Comments 1: Performed HOB flat to simulate home setup Transfers Transfer: Yes Transfer 1 Transfer From 1: Sit Transfer Type 1: To and from Transfer to 1: Stand Technique 1: Sit to stand, Stand to sit Transfer Device 1: rolling walker Transfer Level of Assistance 1: Independent Ambulation Ambulation: Yes Ambulation 1 Surface 1: Level tile Device 1: (more content not included)... [facility] 07-04-2023 Note Speech Tmr Teacher ology Speech/Language Pathology Clinical Swallow Assessment Recommendations Regular diet with thin liquids Hips at 90 degrees for all PO intake SKIMMER to follow for speech and language eval due to new onset aphasia this morning History of Present Illness 72 year old female admitted 07/02 as a transfer from [facility] after being found to have NSTEMI, acute heart failure exacerbation and COVID positive. Patient has past medical history of CAD with 4 stents placed. Baseline Assessment Temperature Spikes Noted: Not applicable Respiratory Status: Room air History of Intubation: No Behavior/Cognition: Alert, Cooperative, Pleasant mood, Requires cueing Dentition: Adequate Vision: Functional for self-feeding Patient Positioning: Upright in chair Baseline Vocal Quality: Normal Oral Mech Exam Labial ROM and strength appeared WNL. Lingual ROM slightly reduced on left. Required max cues to complete oral motor tasks may be due to pt STEBBINS. Laryngeal Function Vocal Quality: Within Functional Limits Vocal Intensity: No impairment Apraxia: None present Intelligibility: Intelligible Intelligibility Ratin%-99% Dysarthria : Yes (very mild) Consistencies Assessed Consistencies Assessed: Yes Thin Presentation: Self Fed, Straw Oral: Within functional limits Pharyngeal: Within Functional Limits Puree Presentation: Self Fed Oral: Within functional limits Pharyngeal: Within Functional Limits Solid Presentation: Self Fed Oral: Within functional limits Pharyngeal: Within Functional Limits Impressions Clinically, pt presented with safe and efficient swallow. No s/s of aspiration noted with thin liquids, puree, soft solids, or regular solids. Oral phase mildly delayed, but functional. Pharyngeal phase appeared timely. Pt appears okay for regular diet with thin liquids at this time. Aspiration Risk Risk for Aspiration: No Diet Solids Recommendation: Regular consistency Diet Liquids Recommendations: Thin liquids Compensatory Swallowing Strategies: Upright as possible for all oral intake, Small bites/sips, Eat/feed slowly Recommended Form of Medications: With liquid Recommendations Follow up treatments: Follow up for speech and language evaluation [facility] 07-04-2023 Note Hospital Medicine Daily Progress Note - 07/04/2023 9:31 AM; Room: [id number] Admission: 07/02/2023 11:39 PM; Length of stay: 2 days THE HOSPITALIST TEAM PREFERS TO USE Q-[employer] CHAT FOR COMMUNICATION 7AM-7PM. IF I DO NOT RESPOND WITHIN 15 MINUTES, PLEASE PAGE ME/CALL THROUGH THE CDL INSTRUCTOR. FROM 7PM-7AM, PLEASE PAGE [phone](COVR) Code Status: Full Code Barriers to Discharge: cards, possible ischemia workup Expected Discharge Date: 1 - 2 days Discharge Destination: home Overview Patient is seen for evaluation and management of SOB. Subjective Up in chair Doing better No complaints After I saw patient she was ordering food and concern for word finding difficulties she quickly recovered from . A stroke alert was called Physical Exam Visit Vitals BP 176/85 (BP Location: Left arm, Patient Position: Lying) Comment: Hospitalist aware. Patient will be restarted on BP medications in the AM. Pulse 66 Temp 36.3 ???C (97.3 ???F) (Temporal) Resp 16 Intake/Output Summary (Last 24 hours) at 07/04/2023 0931 Last data filed at 07/03/2023 1800 Gross per 24 hour Intake 1040.05 ml Output -- Net 1040.05 ml Physical Exam Constitutional: Appearance: Normal appearance. HENT: Head: Normocephalic. Mouth/Throat: Mouth: Mucous membranes are moist. Eyes: Pupils: Pupils are equal, round, and reactive to light. Cardiovascular: Rate and Rhythm: Normal rate. Pulmonary: Effort: Pulmonary effort is normal. Abdominal: General: Abdomen is flat. Neurological: General: No focal deficit present. Mental Status: She is alert. Psychiatric: Mood and Affect: Mood normal. Estimated body mass index is 45.97 kg/m??? as calculated from the following: Height as of this encounter: 1.575 m (5' 2 ). Weight as of this encounter: 114 kg (251 lb 5.2 oz). Active Inpatient Problems Principal Problem: NSTEMI (non-ST elevated myocardial infarction) ([facility]) Active Problems: Benign essential hypertension Coronary atherosclerosis Dyspnea on exertion Hyperglycemia due to type 2 diabetes mellitus ([facility]/HCC) Morbid obesity ([facility]/HCC) Obstructive sleep apnea syndrome Peripheral venous insufficiency Acute exacerbation of CHF (congestive heart failure) ([facility]) COVID-19 Assessment and Plan NSTEMI, Likely type II in setting of heart failure exacerbation - cards consulted Acute on chronic systolic heart failure exacerbation 60 % TTE 05/2022, NYHA class 2 - lasix 40mg IV daily - cards following - GDMT: Farxiga, coreg, losartan - echo pending Word finding difficulities - extremely brief but stroke alert was called on 07/04 COVID ? - positive at [facility] but negative x 2 at [facility] - will DC remdisivir - on room air DMII insulin dependent - uncontrolled, HgbA1C 10.8 - hypoglycemic this AM - reduce lantus dose Hypertension - cont home meds Hypokalemia - replace KJ - home CPAP at bedside Hypomagnesia - replace as needed Obese class 2 - BMI 45 Scheduled Meds aspirin, 81 mg, oral, Daily atorvastatin, 80 mg, oral, Nightly carvedilol, 6.25 mg, oral, BID dapagliflozin propanediol, 10 mg, oral, Daily furosemide, 40 mg, intravenous, Daily heparin (porcine), 5,000 Units, subcutaneous, q12h FRANNY hydrALAZINE, 100 mg, oral, TID insulin aspart, 0-20 Units, subcutaneous, Before meals & nightly insulin glargine, 35 Units, subcutaneous, BID losartan, 50 mg, oral, Daily remdesivir, 100 mg, intravenous, Daily Pertinent Investigations Hematology: Results from last 7 days Lab Units 07/03/23 0046 WBC AUTO 10*3/uL 8.64 HEMOGLOBIN g/dL 12.7 HEMATOCRIT % 39.8 MCV fL 91.9 PLATELETS AUTO 10*3/uL 354 Chemistry: Results from last 7 days Lab Units 07/04/23 0530 07/03/23 0902 07/03/23 0046 SODIUM mmol/L 136 -- 134* POTASSIUM mmol/L 3.2* -- 3.6 CHLORIDE mmol/L 103 -- 98 CO2 mmol/L 30 -- 27 BUN mg/dL 17 -- 11 CREATININE mg/dL 0.65 -- 0.71 GLUCOSE mg/dL 69* -- 323* MAGNESIUM mg/dL -- 1.9 1.4* CALCIUM mg/dL 9.4 -- 9.4 PHOSPHORUS mg/dL -- -- 2.7 Results from last 7 days Lab Units 07/04/23 0530 07/03/23 0046 AST U/L 17 23 ALT U/L 19 24 ALK PHOS U/L 74 102 BILIRUBIN TOTAL mg/dL 0.8 1.2* Results from last 7 days Lab Units 07/04/23 0710 07/03/23 2030 07/03/23 1602 07/03/23 1145 07/03/23 0716 POCT GLUCOSE mg/dL 76 116* 188* 260* 425* Historical Values: (Includes values prior to this admission) Lab Results Component Value Date HDL 62 07/03/2023 LDL 108 07/03/2023 No results found for: [id number] , IRON , TIBC , C3 , C4 , JEREMIAH , CANCA , ASO , PSA , CEA , CA125 , CA199 , AFP , CA153 Imaging ECG 12 lead Normal sinus rhythm Non-specific intra-ventricular conduction block Lateral infarct , age undetermined Abnormal ECG When compared with ECG of 07-DEC-2013 11:48, Questionable change in QRS duration Lateral infarct is now Present Confirmed by Gerardo Morris ([id number]) on 07/03/2023 9:02:17 AM (more content not included)... [facility] 07-03-2023 Note 07/03/23 1229 Admission Assessment Questions Verify insurance with patient Yes Do you understand medical disease or what brought you into the hospital? Yes Who is your current PCP? Vlad Cesar MD Can I schedule a follow up appointment for you at the time of discharge? No Do you understand why you are taking your current medications? Yes Are you taking your medications as prescribed? Yes Did patient provide teach back? Yes Would you like use our pharmacy iMeds to fill your new medications at the time of Discharge? Yes Does the patient have a family service caseworker assigned to them through their insurance? No Living Arrangement (Current/Prior to Hospitalization) Private residence Does the patient have history of HHC or SNF? Yes (HHC - doesn't recall name) Assistive Device Walker Patient's goal for discharge Home no needs Was patient reminded that goal for discharge is 11am? Yes Does the patient have transportation at discharge? Yes Type of Residence/Post Acute Needs Private residence Is PT/OT appropriate? No Is PT/OT ordered? No Is SW consult appropriate? No Is SW consult ordered? No Do you understand the benefits of MyChart? No Were you able to send link and activate MyChart? No [facility] 07-03-2023 Note Clinical Nutrition A ssessment Name: Laura Lawson Date: 1950 Date of Visit: 07/03/23 Reason for assessment: MD referral CHF Information obtained from: patient, medical record, and nursing Medical History No chief complaint on file. Past Medical History: Diagnosis Date Coronary artery disease Diabetes mellitus (CMS/HCC) Gout Hypertension Sleep apnea Past Surgical History: Procedure Laterality Date BACK SURGERY CARDIAC CATHETERIZATION CARPAL TUNNEL RELEASE HYSTERECTOMY THYROID SURGERY Current Outpatient Medications Medication Instructions allopurinol (ZYLOPRIM) 300 mg, oral, Daily aspirin 81 mg, oral, Daily atorvastatin (LIPITOR) 40 mg, oral, Daily baclofen (LIORESAL) 10 mg, oral, Nightly candesartan (ATACAND) 32 mg, oral, Daily hydrALAZINE (APRESOLINE) 100 mg, oral, 3 times daily insulin lispro (HumaLOG) 100 unit/mL injection Patient reports taking three times daily 15 minutes before meals. Reports taking 25 units of Humalog to decrease glucose reading by 100 labetalol (NORMODYNE) 300 mg, oral, 2 times daily meloxicam (MOBIC) 15 mg, oral, Daily nitroglycerin (Nitrostat) 0.3 mg SL tablet nitroglycerin 0.3 mg sublingual tablet omeprazole (PriLOSEC) [address] capsule No dose, route, or frequency recorded. potassium chloride CR (Klor-Con M20) 20 mEq ER tablet Every 12 hours torsemide (DEMADEX) 20 mg, oral, 2 times daily RT Toujeo Max U-300 SoloStar 100 Units, subcutaneous, Daily Trulicity 1.5 mg, subcutaneous, Weekly No Known Allergies Nutrition Problems: Appetite: good Geriatric feeding skills: Ability to feed oneself Physical findings: obese Skin Integrity: sore to right toe and left story Other: +3 BLE edema Recent covid+ CHF exacerbation COVID + Results from last 7 days Lab Units 07/03/23 1145 07/03/23 0902 07/03/23 0716 07/03/23 0046 GLUCOSE mg/dL -- -- -- 323* POCT GLUCOSE mg/dL 260* -- 425* -- BUN mg/dL -- -- -- 11 CREATININE mg/dL -- -- -- 0.71 SODIUM mmol/L -- -- -- 134* POTASSIUM mmol/L -- -- -- 3.6 MAGNESIUM mg/dL -- 1.9 -- 1.4* HEMOGLOBIN g/dL -- -- -- 12.7 WBC AUTO 10*3/uL -- -- -- 8.64 HEMOGLOBIN A1C % -- -- -- 10.8* I/O: Intake/Output Summary (Last 24 hours) at 07/03/2023 1554 Last data filed at 07/03/2023 1454 Gross per 24 hour Intake 580.05 ml Output -- Net 580.05 ml Current Medications: aspirin, 81 mg, oral, Daily atorvastatin, 80 mg, oral, Nightly carvedilol, 3.125 mg, oral, BID dapagliflozin propanediol, 10 mg, oral, Daily furosemide, 40 mg, intravenous, Daily heparin (porcine), 5,000 Units, subcutaneous, q12h FRANNY insulin aspart, 0-20 Units, subcutaneous, Before meals & nightly insulin glargine, 40 Units, subcutaneous, BID losartan, 50 mg, oral, Daily [START ON 07/04/2023] remdesivir, 100 mg, intravenous, Daily Anthropometrics: Height: 157.5 cm (5' 2 ) Weight: 113 kg (248 lb 3.8 oz) Body mass index is 45.4 kg/m???. Wt Readings from Last 7 Encounters: 07/03/23 113 kg (248 lb 3.8 oz) 02/26/23 114 kg (252 lb) 08/19/22 112 kg (248 lb) 02/08/22 115 kg (253 lb) 08/02/21 121 kg (266 lb) 01/10/21 123 kg (272 lb) 11/13/20 124 kg (274 lb) IBW: 50 kg Wt change : -9% wt loss in 7 months Nutrition Assessment: Diet History: reports was instructed by doctor to lose weight. Reports weight loss has been intentional. Might have been aided by her trulicity injections as well per pt. Dietary Orders (From admission, onward) Start Ordered 07/03/23 0921 Regular Diet Diabetic Female (carb 45g/meal) Diet effective now Question Answer Comment Room Service? Yes Carbohydrate restriction: Diabetic Female (carb 45g/meal) 07/03/23 0920 Nutrition Risk: Moderate Nutrition Recommendations: Continue current diet Pt reports good appetite and intakes. Denies SOB with meals Encouraged protein foods with meals to aid in would healing, noted by LDA. Optimize glycemic control. Currently on diabetic diet. May be exacerbated by COVID infection and remdesevir. Reviewed HF diet education Goals: Nutrition Goals: intake > 75% meals and wound healing Dennis Peña RD (Please reach out with questions and contact the dietitian via [employer] chat 8A-4P Friday-Friday. Or call the dietitian's office at extension [phone]. For weekends/holidays, the dietitian's can be reached by paging [phone] from 9A-3P. Unable to be reached via [employer] chat on Salbador & holidays.) [facility] 07-03-2023 Note Pharmacy Dosing Serv ice - Remdesivir Initial Consult Note Pharmacy has been consulted for the dosing and evaluation of Drug: Remdesivir Indication: COVID-19 Labs and Renal Function Lab Results Component Value Date ALT 24 07/03/2023 AST 23 07/03/2023 ALKPHOS 102 07/03/2023 BILITOT 1.2 (H) 07/03/2023 Estimated Creatinine Clearance: 88.1 mL/min (by C-G formula based on SCr of 0.71 mg/dL). Assessment / Comments: - Symptom onset 2 days ago - Positive SARS-CoV-2 test? yes, at OSH ED PCR testing - Oxygen saturation: Patient has oxygen saturation - ALT < 10x ULN? yes - DNRCC? no - Concomitant dexamethasone? no Plan: - Start Remdesivir 200mg x1, followed by 100mg every 24 hours - Check comprehensive metabolic panel daily - Please do not hesitate to contact us with comments or questions Thank you, Parish Fernandez, PharmD, MS, BCPS 07/03/2023 [facility] 07-03-2023 Note Hospital Medicine History and Physical 07/03/2023 12:01 AM THE HOSPITALIST TEAM PREFERS TO USE [employer] CHAT FOR COMMUNICATION 7AM-7PM. IF I DO NOT RESPOND WITHIN 15 MINUTES, PLEASE PAGE ME/CALL THROUGH THE CDL INSTRUCTOR. FROM 7PM-7AM, PLEASE PAGE [phone](COVR) Chief Complaint Patient transfer/direct admit from [place] to [facility] for NSTEMI, CHF Exacerbation, and COVID-19 + History of Present Illness Laura Lawson is an 72 y.o. female who came from [place] [facility] with N-STEMI, acute CHF exacerbation, and covid positive. Patient has past medical history of CAD with 4 stents placed. Plavix stopped in August 2022. Troponin 180--> 179. BNP 19,000. Glucose 391Patient endorses chronic SOB but reports worsening prior to arrival to [place] [facility]. Denies cough. No heparin drip. Was given Lasix 40 mg IV while at [place]. Patient tested positive today for covid-19. Her chest X-ray shows decreased lung volume w/ moderate elevation of left hemidiaphragm, compression atelectasis associated w/ the left hemidiaphragm. Patchy densitied w/in left perihilar region noted and are suggestive of atelectasis and or infiltrate. Peribronchial cuffing w/in both hilar regions observed and may be associated with bronchitis. Per [place] [facility], patient SpO2 was good, just feels like she isn't getting enough air into her lungs . Chest X-ray showed cardiomegaly with vascular congestion and bilateral effusions. EKG sinus rhythm, first degree AV block, anterolateral myocardial infarction, probably recent. Possible right ventricular hypertrophy. Meds given in [place] [facility]: nitroglycerin 0.4 mg SL X2, ASA 324 mg, Heparin 4,000 units IVP, Lasix 40 mg IV, Hydralazine 10 mg IVP, and Hydralazine 100 mg PO. Patient seated up at bedside with bilateral feet on floor and is A/O x4. Patient denies any pain/discomfort at this time. She reports being sick since but that today she went to the ED today for significantly increased SOB and SORENSEN x 2 days. Wears C-Pap at bedtime and reports nightly compliance. She denies a cough and also denies any increase in BLE edema. BLE exhibit +1 pitting edema without weeping or erythema. Skin is dry and flaky. She states she was unable to have open heart surgery in the past as previous providers had said she was too new risk for surgery. Will order laboratory work up, EKG, ECHO and consult cardiology. Patient denies any needs, questions or concerns at this time. Review of System and Physical Exam Physical Exam Vitals and nursing note reviewed. Constitutional: General: She is not in acute distress. Appearance: She is obese. She is not ill-appearing, toxic-appearing or diaphoretic. HENT: Head: Normocephalic. Nose: Nose normal. Mouth/Throat: Mouth: Mucous membranes are dry. Eyes: Extraocular Movements: Extraocular movements intact. Pupils: Pupils are equal, round, and reactive to light. Cardiovascular: Rate and Rhythm: Normal rate and regular rhythm. Pulses: Normal pulses. Pulmonary: Effort: Pulmonary effort is normal. Comments: Breath sounds dminished and absent in bases. Abdominal: General: Bowel sounds are normal. Palpations: Abdomen is soft. Musculoskeletal: General: Normal range of motion. Cervical back: Normal range of motion. Right lower leg: Edema present. Left lower leg: Edema present. Skin: General: Skin is warm and dry. Capillary Refill: Capillary refill takes less than 2 seconds. Coloration: Skin is pale. Findings: Lesion present. Neurological: General: No focal deficit present. Mental Status: She is alert and oriented to person, place, and time. Psychiatric: Mood and Affect: Mood normal. Behavior: Behavior normal. Thought Content: Thought content normal. Review of Systems Constitutional: Positive for activity change, appetite change and fatigue. HENT: Negative. Eyes: Negative. Respiratory: Positive for apnea and shortness of breath. Negative for cough, choking, chest tightness, wheezing and stridor. Cardiovascular: Positive for leg swelling. Gastrointestinal: Negative. Endocrine: Negative. Genitourinary: Negative. Musculoskeletal: Negative. Generalized weakness Skin: Negative. Negative for rash and wound. Allergic/Immunologic: Negative. Neurological: Negative. Negative for dizziness, tremors, syncope and headaches. Hematological: Negative. Psychiatric/Behavioral: Negative. Problem List Patient Active Problem List Diagnosis Date Noted NSTEMI (non-ST elevated myocardial infarction) ([facility]) 07/02/2023 Difficulty walking 04/24/2021 Pure hypercholesterolemia 09/20/2020 Osteoporosis 03/08/2020 Peripheral venous insufficiency 01/10/2020 Polyneuropathy due to type 2 diabetes mellitus ([facility]) 01/10/2020 Chronic foot ulcer ([facility]) 11/25/2019 Skin sensation disturbance 11/05/2019 Decreased estrogen level 07/28/2019 Diabetic retinopathy associated with type 2 diabetes mellitus ([facility]) 10/31/19 (more content not included)... [facility] 03-13-2023 Evaluation note Encounter Date Diagnosis Assessment [...] of view she is done very well. [employer] Other 09-20-2023 NoteHypertension is controlled currently 136/67 Renal function stable from labs 05/2022, K+ normal Continue candesartan, hydralazine, labetolol, [facility]ide[facility]23 NoteContinue torsemide F/U with PCP Continue to wear compression to [facility]23 NoteContinue lipitor Script completed for lipid level- last lipids noted in chart is from 2020 Reviewed labs 05/2022 and liver function was normalMer[facility]09-[facility]-2023 NoteCoronary artery disease is stable Continue GDMT- ASA, lipitor, labetolol continue risk factor modifications- heart healthy diet, regular exercise as tolerated and continue all medications. 136/67- 57Un[facility]09-20-2023 NoteUTP CARDIOLOGY PROGRESS NOTE HPI: Laura Lawson [...] exercise as tolerated and continue all medications. 136- 57 Pure hypercholesterolemia Continue lipitor Script completed for lipid level- last lipids noted in chart is from 2020 Reviewed labs 05/2022 and liver function was normal Peripheral venous insufficiency Continue torsemide F/U with PCP Continue to wear compression to BLE Benign essential hypertension Hypertension is controlled currently 136 Renal function stable from labs 05/2022, K+ normal Continue candesartan, hydralazine, labetolol, torsemide RTC 6 monthsMer[facility]04-06-2023 Evaluation note* Encounter Date Diagnosis Assessment Notes [...] back in 6 months with another x-ray. [employer] Other 01-05-2023 Evaluation note* Encounter Date Diagnosis Assessment Notes [...] Jun, Spondylolisthesis, lumbar region (ICD-10 - M43.16) [employer] Other 11-10-2022 Evaluation note* Encounter Date [...] Apr, Spondylolisthesis, lumbar region (ICD-10 - M43.16) [employer] Other 10-14-2022 Progress note Author Abner Roa [facility] March 22, 2022 6:34am Note Date/Time March 22, 2022 6 :34am [facility] [address] [place] [address] Neurosurgery Progress Note Signed Patient: Laura Lawson MR#: [id number] : 1950 Acct:[id number] Age/Sex: 71 / F Adm Date: 2 Loc: 4 Room: [address] [place] [address] Type: ADM IN Attending Dr: Abner Roa [...] Status: Acute Documented By: Abner Roa MD 03/22/22632 Signed By: <Electronically signed by MD Abner Roa> 03/22/22633 [facility] Work Phone: 1(762) 463-987010-13-2022 Progress note Author Abner Roa [facility] March 21, 2022 7:43am Note Date/Time March 21, 2022 7 :43am [facility] [address] [place] [address] Neurosurgery Progress Note Signed Patient: Laura Lawson MR#: [id number] : 1950 Acct:[id number] Age/Sex: 71 / F Adm Date: 2 Loc: Room: 8I5846-6 Type: ADM IN Attending Dr: Abner Roa [...] Status: Acute Documented By: Abner Roa MD 03/21/2242 Signed By: <Electronically signed by MD Abner Roa> 03/21/2243 [facility] Work Phone: 1(920) 342-666210-12-2022 Progress note Author Abner Roa [facility] March 20, 2022 10:22am Note Date/Time March 20, 2022 1 0:22am [facility] [address] [place] [address] Neurosurgery Progress Note Signed Patient: Laura Lawson MR#: [id number] : 1950 Acct:[id number] Age/Sex: 71 / F Adm Date: 2 Loc: Room: [address] [place] [address] Type: ADM IN Attending Dr: Abner Roa [...] cleaned meter 03/19/22 21:38: POC Glucose 357 03/19/22 16:26: POC Glucose 287 03/19/22 14:00: POC Glucose 245, POC Glucose Comment Will notify dr/salesperson furniture/Plan Assessment/Plan (1) Lumbar stenosis with neurogenic claudication: [...] Status: Acute Documented By: Abner Roa MD 03/20/221020 Signed By: <Electronically signed by MD Abner Roa> 03/20/221021 [facility] Work Phone: 1(281) 486-221510-11-2022 Progress note Author Abner Roa [facility] March 19, 2022 7:33am Note Date/Time March 19, 2022 7 :33am [facility] [address] [place] [address] Neurosurgery Progress Note Signed Patient: Laura Lawson MR#: [id number] : 1950 Acct:[id number] Age/Sex: 71 / F Adm Date: 2 Loc: Room: [address] [place] [address] Type: ADM IN Attending Dr: Abner Roa [...] signed by MD Abner Roa> 03/19/22 0733 [facility] Work Phone: 1(230) 730-872808-09-2022 Evaluation note* Encounter Date Diagnosis Assessment Notes [...] stenosis with neurogenic claudication (ICD-10 - M48.062) [employer] Other 07-01-2022 Evaluation note* Encounter Date [...] - G89.29) Continue with current treatment plan [employer] Other 06-30-2022 Evaluation note* Encounter Date [...] as coronary artery disease with multiple stents 30 Prabhjot, 2022 Cervical myelopathy (ICD-10 - G95.9) Nov, Sacroiliitis (ICD-10 - M46.1) Nov, Asymptomatic age-related postmenopausal state (ICD-10 - Z78.0) [employer] Other 06-02-2022 Evaluation note* Encounter Date [...] - G89.29) Continue with current treatment plan [employer] Other 05-18-2022 Evaluation note* Encounter Date [...] - G89.29) Continue with current treatment plan [employer] Other 05-09-2022 Evaluation note* Encounter Date [...] greater trochanteric bursa injection in the future. [employer] Other 04-19-2022 Evaluation note* Encounter Date [...] negative findings were considered in medical decision-making. [place] [employer] Other Evaluation noteNo InformationNortWernersville [facility] [employer] Other Evaluation noteNo assessment information available [facility] Work Phone: Evaluation note* Diagnosis Onset Date Resolution Status Lumbar stenosis with neurogenic claudication acute [facility] Work Phone: Evaluation note* Diagnosis Onset Date [...] urnal bilevel positive airway pressure (BPAP) acute [facility] Work Phone: Evaluation note* Diagnosis COVID- Primary NSTEMI (non-ST elevated myocardial infarction) ([facility]) Acute myocardial infarction, subendocardial infarction, episode of care unspecified Acute on chronic diastolic heart failure ([facility]) Acute on chronic diastolic heart failure Type 2 diabetes mellitus with hyperglycemia, with long-term current use of insulin ([facility]) 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) Morbid (severe) obesity due to excess calories (E66.01) Body mass index [BMI] 45.0-49.9, adult (Z68.42) Atherosclerosis of [place] coronary artery of [place] heart with angina pectoris ([facility]) documented in this encounter [facility] HealthcareEvaluation note* Diagnosis TIA (transient ischemic attack)- Primary Unspecified transient cerebral ischemia Bilateral carpal tunnel syndrome Carpal tunnel syndrome documented in this encounter [facility] SystemEvaluation note* Diagnosis Onset Date Resolution Status History of lumbar fusion acu te Spondylolisthesis, lumbar region acute [facility] Work Phone: History general Narrative - Reported* Type Description Date Medical History diabetes Medical History obstructive sleep apnea Surgical History total hysterectomy Surgical History hernia repair Surgical History neck mass removal [employer] Other History general Narrative - Reported* Type Description Date Medical History diabetes Medical History obstructive sleep apnea Surgical History total hysterectomy Surgical History hernia repair Surgical History neck mass removal Hospitalization History See Above [employer] Other Hospital Discharge instructions Additional Instructions [...] for back spasm 20 minutes every 1-2 hoursBl[facility] Work Phone: InstructionsNot on filedocumented in this encounter [facility] Feed SystemInstructionsNot on filedocumented in this encounter [facility]Enter[facility] Feed [facility] HospitalReason for referral (narrative)* Consultation (Routine) - Pending Review Specialty Diagnoses / Procedures Referred By Raul t Referred To Contact Neurology Diagnoses Bilateral carpal tunnel syndrome Robbi Uribe MD [address] [place] [address], [address] [place] [address] Casey Christopher MD [address] [place] [address], [address] [place] [address] Referral ID Status Reason Start Date Expiration Date Visits Requested Visits Authorized [id number] Pending Review Specialty Services Required 08/19/2023 08/18/2024 1 1 [facility]Re[facility] NarrativeNeurosurgery Referral Update [facility] [employer] Other Summary Purpose Family History No Family History Records Found Relationship Condition Age at Onset Recorded Date/T mirella father Diabetes mellitus Unknown Hypertension Unknown Not Specified Malignant neoplasm of skin Unknown Relationship Condition Age at Onset Recorded Date/T mirella father Diabetes mellitus Unknown Hypertension Unknown Not Specified Malignant neoplasm of skin Unknown Not Specified Diabetes mellitus Unknown Heart disease Unknown Malignant neoplasm Unknown Advance Directives No Advanced Directives Records Found Advance Directive Response Recorded Date/ Time Advance Directives No December 11 2 10:57am Advance Directive Response Recorded Date/ Time Advance Directives No December 11 2 9:57am Reason for Referral Reason leg strengthening, g ait training, balance Diagnosis 1 Spondylolisthesis, l umbar region (M43.16) Referral Organization [facility] Referring Provider First Name Abner Referring Provider Last Name Janina Referring Provider Specialty Neurologica l Surgery Referred Organization [facility] Referred Address ,[place], [place],[address] Referred Provider Specialty Physical The rapist Referral Priority Routine Reason Evaluate and Treat O utPatient PT in [place] for Gait Training and Leg Strengthening Diagnosis 1 Lumbar radiculopathy (M54.16) Referral Organization [facility] Referring Provider First Name Abner Referring Provider Last Name Janina Referring Provider Specialty Neurologica l Surgery Referred Organization [facility] [place] [place] Central Sched uling Referred Address [address] [place], [place],[address] Referred Provider Specialty Physical The rapist Referral Priority Routine Reason eval and treat Diagnosis 1 Lumbar radiculopathy (M54.16) Referral Organization [facility] Pain Managemen t Referring Provider First Name Devang Referring Provider Last Name Keri Referring Provider Specialty Pain Medici ne Referred Organization [facility] Last anthony [place] Referred Provider Vlad Georges Referred Address [address] [facility],[place], [place],[id number] Referred Provider Specialty Neurosurgery Referral Priority Routine [...] order gait training m43.16 Chief Complaint m54.16 Chief Complaint m43.16 1 year po xlif w/xray Reason for Visit History of lumbar fu renard Spondylolisthesis, lumbar region Additional Source Comments INFORMATION SOURCE (unrecogn ized section and content) DATE CREATED AUTHOR 08/19/2018 [facility] DATE CREATED AUTHOR AUTHOR'S ORGANIZ ATION [facility]/17/2020 [facility] DATE CREATED AUTHOR AUTHOR'S ORGANIZ ATION 11/19/2022 [facility] DATE CREATED AUTHOR AUTHOR'S ORGANIZ ATION 08/20/2023 [facility] DATE CREATED AUTHOR AUTHOR'S ORGANIZ ATION 10/25/2023 [facility] DATE CREATED AUTHOR AUTHOR'S ORGANIZ ATION 11/12/2023 [facility] DATE CREATED AUTHOR AUTHOR'S ORGANIZ ATION 11/25/2023 [facility] dical Specialists EPIC REASON FOR VISIT (unrecogniz ed section and content) Reason Comments Follow-up Admitted to [facility] 06/10 09/30 dx: Covid,CHF exac., NSTEMI discharged home 07/07/23 started on farxiga, coreg stopped labetolol pt had follow up appt with cardiology 07/16/23 Reason Onset Date Comments NEW PATIENT REFERRAL 09/04/2023 Care Teams (unrecognized sec tion and content) [...] II MD Primary Care Provider Active Abner Rao MD Admit Provider, Attending Provider A ctive Team Status: Inactive Member Role Status Michael Cesar II MD Primary Care Provider Active Chidi Bowen MD Admit Provider, Attending Provider A ctive Louann Mancilla RN Other Provider Active Janice Linares , KENDALL Other Provider Active Jessica Benson , KENDALL Other Provider Active Arcelia Borges , KENDALL Other Provider Active Sherry Luong RN Other Provider Active Nanci Gardner RN Other Provider Active Meliton Schwartz MD Other Provider Active Fred Nash MD Other Provider Active Mirtha M Dials , DIDACTIC INSTRUCTOR Other Provider Active Yesi Dickens , DO [...] MD Other Provider Active Latonia Ely , CUSTOMER OPERATIONS MANAGER-C Other Provider Active Roman Rosales MD Other Provider Active Riccardo Jenkins MD Other Provider Active Edie Granados MD Other Provider Active Eddy Luu MD Other Provider Active Laine Swan , DO Other Provider Active Ruperto Trejo MD Other Provider Active Edwardo Ramirez , DO Other Provider Active Ziggy Vernon , DO Other Provider Active Tressa Degroot , DIDACTIC INSTRUCTOR Other Provider Active Noam Albarado , DO Other Provider Active Jacobo Montes MD Other Provider Active Fariha Flowers RN Other Provider Active Team Status: Active Member Role Status Dates Vlad Cesar II MD Primary Care Provider Active Abner Roa MD Attending Provider Active Painter Rough Relationship Specialty Start Date End Date Vlad Cesar MD [address] [facility] [address] [place] [address] PCP - General Internal Medicine 10/21/22 Vlad Cesar MD [address] [facility] [address] [place] [address] PCP - ACO Reach 10/31/22 Team Status: Inactive Member Role Status Dates Vlad Cesar II MD Primary Care Provider Active Start: October 23, 2023 End: October 23, 2023 Abner Roa MD Attending Provider Active Star t: October 23, 2023 End: October 23, 2023 Goals (unrecognized section and content) Goals may [...] BE BASED ON THE PRIMARY CLINICAL RECORDS. [facility] [employer] [facility]. provides no warranty or guarantee of the accuracy or completeness of information in this document.
== END 2023-12-04 14:09 | disposition home or self-care (01) ==
LOC: MAMMO 14:08
PROVIDERS: PCP Internal Medicine; Visit Provider Internal Medicine
DX: Z12.31 Encounter for screening mammogram for malignant neoplasm of breast (principal)
CPT/HCPCS: 77063; 77067

== ENCOUNTER 2023-12-13 10:06 | Emergency (ER) | payer MEDICARE, OTHER, SELFPAY ==
[2023-12-13 10:10] VITALS: BP 158/66; PULSE 60; TEMP 37.1; O2SAT 96; BMI 43.0
--- OUTSIDE RECORDS SUMMARY | 2023-12-13 10:13 | XMS_ITS | CCD ---
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 Chief Name Role Phone PHYSICIAN, DEFAULT Admitting Unavailable PHYSICIAN, DEFAULT Attending Unavailable VLAD CESAR Primary Care Unavailable PHYSICIAN, DEFAULT Admitting Unavailable PHYSICIAN, DEFAULT Attending Unavailable VLAD CESAR Primary Care Unavailable Devang Saavedra Unavailable Abner Roa Unavailable MD Abner Roa Attending Provider [phone] MARK Cesar Primary Care Provider MD Abner Roa Admit Provider MARK Cesar Primary Care Provider [phone] MD Abner Roa Attending Provider MD Chidi Bowen Admit Provider MD Chidi Bowen Attending Provider [phone] KENDALL Mancilla Other Provider Unavailable KENDALL Linares Other Provider Unavailable KENDALL Benson Other Provider Unavailable KENDALL Borges Other Provider Unavailable KENDALL Luong Other Provider Unavailable KENDALL Gardner Other Provider Unavailable MD Meliton Schwartz Other Provider MD Fred Nash Other Provider DOTTY Serrano Other Provider DO Yesi Dickens Other Provider MD Alfredo Lacy Other Provider [phone] DO Graeme Davey Other Provider MD James Child Other Provider MD Chel Juarez Other Provider Kimmie, ANP-BC Tuyet Other Provider MD Justine Mercedes Other Provider [phone] MD Regan Hernandez Other Provider MD Adis Cote Other Provider MD Michael Vang Other Provider DO Anton Lane Other Provider MD Awais Bunn Other Provider MD Sonia Mckeon Other Provider MD Boubacar Weston Other Provider Solis RESEARCH PROFESSIONAL-C Latonia Fisher Other Provider MD Roman Rosales E Other Provider MD Riccardo Jenkins Other Provider MD Edie Granados Other Provider MD Eddy Luu Other Provider DO Laine Swan Other Provider Al MD Ruperto Servin Other Provider DO Edwardo Ramirez Other Provider DO Ziggy Vernon Other Provider DOTTY Degroot Other Provider DO Noam Albarado Other Provider MD Jacobo Montes M Other Provider [phone] Kristie, RN Fariha Other Provider Unavailable MARK Cesar Primary Care Provider MD Abner Roa Admit Provider MD Abner Roa Attending Provider [phone] MD Chidi Bowen Admit Provider MD Chidi Bowen Attending Provider KENDALL Mancilla Other Provider Unavailable KENDALL Linares Other Provider Unavailable Marcelino RN Jessica Other Provider Unavailable Joyn RN Arcelia Other Provider Unavailable KENDALL Luong Other Provider Unavailable KENDALL Gardner Other Provider Unavailable MD Meliton Schwartz Other Provider MD Fred Nash Other Provider Maggie, INVOICE CHECKER Mirtha M Other Provider DO Yesi Dickens [...] Other Provider SHANDRA Ely-Dodie Fisher Other Provider [phone] MD Roman Rosales Other Provider MD Riccardo Jenkins Other Provider MD Edie Granados Other Provider MD Eddy Luu Other Provider DO Laine Swan Other Provider MD Ruperto Dempsey Other Provider DO Edwardo Ramirez Other Provider DO Janeen Ziggy Mona Other Provider DOTTY Degroot Other Provider DO Noam Albarado Other Provider MD Jacobo Montes Other Provider KENDALL Flowers Other Provider Unavailable Arsenio, MARK Chu Primary Care Provider MD Abner Roa Attending Provider Cesar, II Vlad Primary Care Provider MD Abner Roa Attending Provider ARSENIO, DR CHU Primary Care Unavailable HAY ., DR PRICE Attending Unavailable HAY ., DR PRICE Consulting Unavailable HAY ., DR PRICE Admitting Unavailable YATESRUSSELL PADGETT Consulting Unavailable ARSENIO, DR CHU Attending Unavailable ARSENIO, DR CHU Consulting Unavailable ARSENIO, DR CHU Primary Care Unavailable ARSENIO, DR CHU Admitting Unavailable ARSENIO, DR CHU Admitting Unavailable ARSENIO, DR CHU Attending Unavailable ARSENIO, DR CHU Consulting Unavailable ARSENIO, DR CHU Primary Care Unavailable Arsenio, MARK Chu Primary Care Provider MD Abner Roa Attending Provider Unavailable Primary Care Provider UnavailVlad Leon MD Primary Care Provider [phone] Vlad Cesar MD Unavailable [phone] ROBBI URIBE Attending Unavailable Abner Roa Admitting Unavailable Abner Roa Attending Unavailable Vlad Cesar Primary Care Unavailable Abner Roa Admitting Unavailable Abner Roa Attending Unavailable Vlad Cesar Primary Care Unavailable Abner Roa Admitting Unavailable Abner Roa Attending Unavailable Vlad Cesar Primary Care Unavailable Arsenio, MARK Chu Primary Care Provider [phone] MD Abner Roa Attending Provider [phone] VLAD CESAR Attending Unavailable MYA CISSE Attending Unavailable VLAD CESAR Attending Unavailable VLAD CESAR Attending Unavailable MYA CISSE Attending Unavailable VLAD CESAR Attending Unavailable VLAD CESAR Attending Unavailable MOUKAJULITO BRAVO Referring Unavailable CHRISTIANNIRAJ RODRIGUEZ Attending Unavailable CHRISTIANNIRAJ CUELLO Attending Unavailable DAVEDALE Gold Referring Unavailable DAVE, DALE Referring Unavailable ZENIVORY Gold Referring Unavailable MOUKARBELJULITO Admitting Unavailable MOUKARBEL, JULITO Attending Unavailable IVORY GARRETT Referring Unavailable MOUKARBEL, JULITO Attending Unavailable DULCE GARCIA Attending Unavailable DEANASHAWNA CHRISTENSEN Referring Unavailable CHRISTIANNIRAJ RODRIGUEZ Attending Unavailable MOUKARBEL, JULITO Attending Unavailable MOUKARBEL, JULITO Referring Unavailable SANAULLAH, JOSHUA Referring Unavailable ANGELIKA SANTOS Referring Unavailable MOUKARBEL, JULITO Referring Unavailable SANAULLAH, JOSHUA Admitting Unavailable JANETRUPERTO Lyons Attending Unavailable UNKNOWN, UNKNOWN Referring Unavailable DEANA, SHAWNA Attending Unavailable ALEX, IVON Admitting Unavailable MOUKARBEL, JULITO Referring Unavailable DAVE, DALE Referring Unavailable Allergies Allergy Classification Reported Allergen(s) Allergy Type Date of Onset Reaction(s) Facility (1 source) 31783,00; Translations: [64222,00] Propensity to adverse reactions (disorder) 9 The [facility] Repository (20 sources) gabapentin; Translations: [GABAPENTIN] Drug Allergy 2 Palpitations [facility] (13 sources) traMADol; Translations: [tramadol] Drug Allergy 2 Other [facility] (1 source) gabapentin Drug Allergy 4 [facility] Repository Medications Current Medications Medication Drug Class(es) Dates Sig (Normalized) Sig (Original) acetaminophen 325 mg oral tablet (13 sources) Start: 03-21-2022 End: 04-03-2022 take 650 mg by mouth every four hours Acetaminophen Active 650 MG PO Q4H 100 30 April 03, 2022 12:00am allopurinol 300 mg [...] Docusate Sodium Active 200 MG PO Daily April 03, 2022 12:00am Start: 03-05-2022 End: 04-03-2022 Docusate Sodium (Stool Softe ner) 100 mg Capsule Discontinued 200 MG PO Daily March 05, 2022 12:00am April 03, 2022 8:52am take 1 capsule by [facility] every twenty-four hours Stool Softener 100 MG 1 capsule as needed Orally Once a day Active docusate sodium 50 mg / sennosides, residential 8.6 mg oral tablet (13 sources) Start: [...] complication, with long-term current use of insulin ([facility]) Inject 25 Units under the skin in [...] 2022 8:52am take 1 capsule by [facility] once daily Omeprazole 40 MG 1 capsule [...] endurance] 03-23-2022 Episodic Congestive heart failure; nonhypertensive (18 sources) Unspecified diastolic (congestive) heart failure; Translations: [Acute on chronic diastolic heart failure] Onset: 05-17-2022 Chronic Coronary atherosclerosis and other heart disease (14 sources) Coronary arteriosclerosis; Translations: [Atherosclerotic heart disease of [place] coronary artery without angina pectoris] Onset: 10-08-2023 [...] Translations: [Immunodeficiency due to conditions classified elsewhere ([facility])] 07-21-2023 Chronic Osteoarthritis (20 sources) Localized, primary [...] Translations: [Other cerebrovascular vasospasm and vasoconstriction] Onset: 07-07-2023 Chronic Other and ill-defined heart disease (2 [...] lumbar region] Onset: 12-12-2022 Unclassified (1 source) Other pericardial effusion (noninflammatory); Translations: [Other pericardial effusion (noninflammatory)] Onset: 08-05-2023 Unclassified (1 source) Resistant hypertension; Translations: [Resistant [...] 01-13-2023 01-13-2023 Episodic Other aftercare (1 source) 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; Translations: [GROUP HOME CURRENT USE OF ASPIRIN] Onset: 05-16-2022 Episodic Other aftercare (1 source) 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; Translations: [GROUP HOME CURRENT USE OF INSULIN] Onset: 05-16-2022 Episodic Other aftercare (1 source) Other prison (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 therapy; Translations: [OTH ESCORT SERVICE ATTENDANT CURRENT DRUG THERAPY] Onset: 05-16-2022 Episodic Other aftercare (2 sources) Long-term current use of insulin; Translations: [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] Onset: 07-12-2015 01-13-2023 [...] Onset: 10-15-2022 10-15-2022 Episodic Unclassified (1 source) Other pericardial effusion (noninflammatory); Translations: [Other pericardial effusion (noninflammatory)] Onset: 12-04-2023 Unclassified (1 source) Resistant hypertension; Translations: [Resistant hypertension] Onset: 07-16-2023 Results Test Name Value Interpretation Reference Range Facility Office Visiton 12-04-2023 Follow-up visit [id number] Laura Lawson 1950 F Date Provider Department Center 12/04/2023 JULITO SALAZAR [facility] Family History Problem Relation Age of Onset JABARI disease Mother Heart attack Father Family Status - Relation Status Age at Mother Father Level of Service:00453 OR OFFICE/OUTPATIENT ESTABLISHED MOD MDM 30 MIN Normal [facility] XR lumbar spine AP/LAT/FLX/E XTon 10-23-2023 XR lumbar spine AP/LAT/FLX/EXT [facility] [place] [address] XRay Report Signed Patient: Laura Lawson MR#: [id number] : 1950 Acct:[id number] Age/Sex: 72 / F ADM Date: 10/23/23 Loc: XD Room: Type: [facility] Attending Dr: Abner Roa MD Copies to: [...] Amaury Devlin M.D.10/23/2023 2:34 PM Dictation Location: [place] [address] Transcribed By: [facility] 10/23/23 1434 Dictated By: Amaury Devlin DO 10/23/23 1430 Signed By: 10/23/23 1434 Normal [facility] Office Visiton 10-14-2023 Follow-up visit [id number] Laura Lawson 1950 F Date Provider Department Center 10/14/2023 [facility] Family History Problem Relation Age of Onset JABARI disease Mother Heart attack Father Family Status - Relation Status Age at Mother Father Level of Service:73960 OR OFFICE/OUTPATIENT ESTABLISHED MOD MDM 30 MIN Reason for Visit and Comments: Coronary Artery Disease [187] Congestive Heart Failure [127] Hypertension [976828] Normal [facility] 30on 10-09-2023 30 The patient is Moderately [...] to address these barriers include N/A. Normal [facility] BASIC METABOLIC PANELon Anion gap [Moles/Vol] 11 mmol/L Normal 7-20 [facility] Comment on above: Performed By: #### L [id number] #### [facility] (BEAKER) [address] [place] [address] Calcium [Mass/Vol] 9.7 mg/dL Normal 8.6-10.3 [facility] Comment on above: Performed By: #### L [id number] #### [facility] (BEAKER) [address] [place] [address] Chloride [Moles/Vol] 104 mmol/L Normal 98-107 [facility] Comment on above: Performed By: #### L [id number] #### [facility] (BEAKER) [address] [place] [address] CO2 [Moles/Vol] 24 mmol/L Normal 21-31 [facility] Comment on above: Performed By: #### L [id number] #### [facility] (BEAKER) [address] [place] [address] Creatinine [Mass/Vol] 1.18 mg/dL Normal 0.60-1.20 [facility] Comment on above: Performed By: #### L [id number] #### [facility] (BEAKER) [address] [place] [address] GLOMERULAR FILTRATION RATE ML/MIN/1.73 SQ M.PREDICTED 49.7 mL/min/1.73m*2 Low >60.0 [facility] Comment on above: Result Comment: The [facility]???s estimated glomerular filtration rate (eGFR) will no [...] group of individuals. Performed By: #### L [id number] #### [facility] ([facility]) [address] [place] [address] Glucose [Mass/Vol] 231 mg/dL High 70-100 [facility] Comment on above: Performed By: #### L [id number] #### [facility] ([facility]) [address] [place] [address] Potassium [Moles/Vol] 4.2 mmol/L Normal 3.5-5.1 [facility] Comment on above: Performed By: #### L [id number] #### [facility] ([facility]) [address] [place] [address] Sodium [Moles/Vol] 135 mmol/L Low 136-145 [facility] Comment on above: Performed By: #### L [id number] #### [facility] ([facility]) [address] [place] [address] Urea nitrogen [Mass/Vol] 37 mg/dL High 7-25 [facility] Comment on above: Performed By: #### L [id number] #### [facility] ([facility]) [address] [place] [address] UREA NITROGEN/CREATININE (MASS RATIO) IN SER/PLAS 31.4 Normal [facility] Comment on above: Performed By: #### L [id number] #### [facility] ([facility]) [address] [place] [address] CBCon 10-09-2023 Erythrocyte distribution width (RBC) [Ratio] 15.1 % High 11.5-15.0 [facility] Comment on above: Performed By: #### L [id number] ####[facility] [place] [address] ERYTHROCYTE MEAN CORPUSCULAR HEMOGLOBIN CONCENTRATION (G/DL) BY AUTOMATED 31.9 g/dL Low 32.0-35.0 [facility] Comment on above: Performed By: #### L [id number] ####[facility] [place] [address] Hematocrit (Bld) [Volume fraction] 32.9 % Low 36.0-48.0 [facility] Comment on above: Performed By: #### L [id number] ####[facility] [place] [address] Hemoglobin (Bld) [Mass/Vol] 10.5 g/dL Low 12.0-15.0 [facility] Comment on above: Performed By: #### L [id number] ####[facility] [place] [address] MCH (RBC) [Entitic mass] 32.0 pg Normal 27.0-33.0 [facility] Comment on above: Performed By: #### L [id number] ####[facility] (BEAKER)[address] [place] [address] MCV (RBC) [Entitic vol] 100.3 fL High 82.0-98.0 [facility] Comment on above: Performed By: #### L [id number] ####[facility] (BEAKER)[address] [place] [address] PLATELETS (10*3/UL) IN BLOOD AUTOMATED COUNT 259 10*3/uL Normal 150-400 [facility] Comment on above: Performed By: #### L [id number] ####[facility] (BEAKER)[address] [place] [address] RBC (Bld) [#/Vol] 3.28 10*6/uL Low 3.80-5.00 [facility] Comment on above: Performed By: #### L [id number] ####[facility] (BEAKER)[address] [place] [address] WBC (Bld) [#/Vol] 13.05 10*3/uL High 4.00-10.60 [facility] Comment on above: Performed By: #### L [id number] ####[facility] (BEAKER)[address] [place] [address] DSon 10-09-2023 DS --- Attestation signed by [...] 70% instent (more content not included)... Normal [facility] POCT GLUCOSE METER UNSOLICIT ED RESULTSon 10-09-2023 Glucose [Mass/Vol] 225 mg/dL High 70-105 [facility] Comment on above: Order Comment: Waive d Testing in the ED is performed under the ED CLIA certificate #[id number]. Result Comment: [email or web address] Performed By: #### L [id number] #### [facility] ([facility]ER) [address] [place] [address] Glucose [Mass/Vol] 215 mg/dL High 70-105 [facility] Comment on above: Order Comment: Waive d Testing in the ED is performed under the ED CLIA certificate #[id number]. Result Comment: [email or web address] Performed By: #### L [id number] #### [facility] (NICOLAS) [address] [place] [address] 30on 10-08-2023 30 The patient is Moderately [...] the next 3 months Outcome: Progressing Normal [facility] HPon 10-08-2023 HP H&P reviewed. The patient [...] explained the procedure with risks and benefits. [facility] NURSNOTEon 10-08-2023 NURSNOTE Report called to Benigno cabello RN. He denies questions/concerns. [facility] POCT GLUCOSE METER UNSOLICIT ED RESULTSon 10-08-2023 Glucose [Mass/Vol] 208 mg/dL High 70-105 [facility] Comment on above: Order Comment: Waive d Testing in the ED is performed under the ED CLIA certificate #[id number]. Result Comment: [email or web address] Performed By: #### L [id number] #### [facility] (BEAKER) [address] [place] [address] Glucose [Mass/Vol] 179 mg/dL High 70-105 [facility] Comment on above: Order Comment: Waive d Testing in the ED is performed under the ED CLIA certificate #[id number]. 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 (CMS/HCC) Low back pain Morbid obesity (CMS/HCC) Neoplasm of uncertain behavior of kidney Obstructive sleep apnea syndrome Osteoarthritis of knee Osteoporosis Peripheral venous insufficiency Polyneuropathy due to type 2 diabetes mellitus (CMS/HCC) Preoperative evaluation to rule out surgical contraindication Pulmonary function studies abnormal Pure hypercholesterolemia Renal mass Skin sensation disturbance Type 2 diabetes mellitus without complication ([facility]) Umbilical hernia Uric acid nephrolithiasis NSTEMI (non-ST elevated myocardial infarction) ([facility]) Acute exacerbation of CHF (congestive heart failure) ([facility]) COVID-19 Acquired spondylolisthesis Acute on chronic diastolic heart failure ([facility]) Coronary artery disease (CAD) excluded Diastolic dysfunction GERD (gastroesophageal reflux disease) History of carpal tunnel surgery of right wrist Hyperlipidemia Impaired mobility and endurance Localized edema Lumbar radiculopathy Morbid obesity with body mass index (BMI) of 45.0 to 49.9 in adult ([facility]) Paresthesia of skin Primary osteoarthritis of both knees S/P drug eluting coronary stent placement Ulcer of foot due to type 2 diabetes mellitus ([facility]) Pericardial effusion Acute systolic heart failure ([facility]) CAD in [place] artery Family History Problem Relation Name Age [...] is alert and (more content not included)... [facility] Office Visiton 09-26-2023 Follow-up visit [id number] Laura Lawson 1950 F Date Provider Department Center 09/26/2023 JULITO SALAZAR [facility] Family History Problem Relation Age of Onset JABARI disease Mother Heart attack Father Family Status - Relation Status Age at Mother Father Level of Service:10267 OR OFFICE/OUTPATIENT ESTABLISHED HIGH MDM 40 MIN Reason for Visit and Comments: Follow-up [121034] - Follow up - heart cath [facility] 30on 09-10-2023 30 Daily Case Managemen t [...] PT Recommendations: OT Recommendations: New Consults: Normal [facility] CBC WITH AUTO DIFFERENTIALon 09-10-2023 Basophils (Bld) [#/Vol] 0.05 10*3/uL Normal 0.00-0.20 [facility] Comment on above: Performed By: #### L [id number] #### [facility] (BEAKER) [address] [place] [address] Basophils/100 WBC (Bld) 0.6 % Normal 0.0-1.0 [facility] Comment on above: Performed By: #### L [id number] #### [facility] (BEAKER) [address] [place] [address] Eosinophils (Bld) [#/Vol] 0.35 10*3/uL Normal 0.00-0.50 [facility] Comment on above: Performed By: #### L [id number] #### [facility] (BEAKER) [address] [place] [address] Eosinophils/100 WBC (Bld) 4.0 % Normal 0.0-6.0 [facility] Comment on above: Performed By: #### L [id number] #### [facility] (BEAKER) [address] [place] [address] Erythrocyte distribution width (RBC) [Ratio] 15.7 % High 11.5-15.0 [facility] Comment on above: Performed By: #### L [id number] #### [facility] (BEAKER) [address] [place] [address] ERYTHROCYTE MEAN CORPUSCULAR HEMOGLOBIN CONCENTRATION (G/DL) BY AUTOMATED 32.6 g/dL Normal 32.0-35.0 [facility] Comment on above: Performed By: #### L [id number] #### [facility] (BEAKER) [address] [place] [address] Hematocrit (Bld) [Volume fraction] 38.0 % Normal 36.0-48.0 [facility] Comment on above: Performed By: #### L [id number] #### [facility] (BEAKER) [address] [place] [address] Hemoglobin (Bld) [Mass/Vol] 12.4 g/dL Normal 12.0-15.0 [facility] Comment on above: Performed By: #### L [id number] #### [facility] ([facility]) [address] [place] [address] Immature granulocytes (Bld) [#/Vol] 0.02 10*3/uL Normal 0.00-0.20 [facility] Comment on above: Performed By: #### L [id number] #### [facility] ([facility]) [address] [place] [address] Immature granulocytes/100 WBC (Bld) 0.2 % Normal 0.0-1.0 [facility] Comment on above: Performed By: #### L [id number] #### [facility] ([facility]) [address] [place] [address] Lymphocytes (Bld) [#/Vol] 1.93 10*3/uL Normal 1.20-4.00 [facility] Comment on above: Performed By: #### L [id number] #### [facility] (BEAKER) [address] [place] [address] Lymphocytes/100 WBC (Bld) 22.0 % Normal 20.0-45.0 [facility] Comment on above: Performed By: #### L [id number] #### [facility] (BEAKER) [address] [place] [address] MCH (RBC) [Entitic mass] 30.7 pg Normal 27.0-33.0 [facility] Comment on above: Performed By: #### L [id number] #### [facility] (BEAKER) [address] [place] [address] MCV (RBC) [Entitic vol] 94.1 fL Normal 82.0-98.0 [facility] Comment on above: Performed By: #### L [id number] #### [facility] (BEAKER) [address] [place] [address] Monocytes (Bld) [#/Vol] 1.04 10*3/uL High 0.10-1.00 [facility] Comment on above: Performed By: #### L [id number] #### [facility] ([facility] [facility]) [address] [place] [address] Monocytes/100 WBC (Bld) 11.8 % Normal 5.0-12.0 [facility] Comment on above: Performed By: #### L [id number] #### [facility] ([facility]) [address] [place] [address] Neutrophils (Bld) [#/Vol] 5.40 10*3/uL Normal 1.60-7.60 [facility] Comment on above: Performed By: #### L [id number] #### [facility] ([facility]) [address] [place] [address] Neutrophils/100 WBC (Bld) 61.4 % Normal 40.0-72.0 [facility] Comment on above: Performed By: #### L [id number] #### [facility] ([facility]) [address] [place] [address] NRBC (PER 100 WBCS) BY AUTOMATED COUNT 0.0 % Normal 0 [facility] Comment on above: Performed By: #### L [id number] #### [facility] ([facility]) [address] [place] [address] PLATELETS (10*3/UL) IN BLOOD AUTOMATED COUNT 256 10*3/uL Normal 150-400 [facility] Comment on above: Performed By: #### L [id number] #### [facility] (BEAKER) [address] [place] [address] RBC (Bld) [#/Vol] 4.04 10*6/uL Normal 3.80-5.00 [facility] Comment on above: Performed By: #### L [id number] #### [facility] ([facility]) [address] [place] [address] WBC (Bld) [#/Vol] 8.79 10*3/uL Normal 4.00-10.60 [facility] Comment on above: Performed By: #### L [id number] #### [facility] ([facility]) [address] [place] [address] COMPREHENSIVE METABOLIC PANE Agus 09-10-2023 Albumin [Mass/Vol] 3.5 g/dL Normal 3.5-5.7 [facility] Comment on above: Performed By: #### L [id number] #### [facility] ([facility]) [address] [place] [address] ALP [Catalytic activity/Vol] 67 U/L Normal 34-104 [facility] Comment on above: Performed By: #### L [id number] #### [facility] ([facility]) [address] [place] [address] ALT [Catalytic activity/Vol] 12 U/L Normal 7-52 [facility] Comment on above: Performed By: #### L [id number] #### [facility] ([facility]) [address] [place] [address] Anion gap [Moles/Vol] 11 mmol/L Normal 7-20 [facility] Comment on above: Performed By: #### L [id number] #### [facility] ([facility]) [address] [place] [address] AST [Catalytic activity/Vol] 15 U/L Normal 13-39 [facility] Comment on above: Performed By: #### L [id number] #### [facility] ([facility]) [address] [place] [address] Bilirubin [Mass/Vol] 0.6 mg/dL Normal 0.3-1.0 [facility] Comment on above: Performed By: #### L [id number] #### [facility] ([facility]) [address] [place] [address] Calcium [Mass/Vol] 9.5 mg/dL Normal 8.6-10.3 [facility] Comment on above: Performed By: #### L [id number] #### [facility] ([facility]) [address] [place] [address] Chloride [Moles/Vol] 103 mmol/L Normal 98-107 [facility] Comment on above: Performed By: #### L [id number] #### [facility] ([facility]) [address] [place] [address] CO2 [Moles/Vol] 26 mmol/L Normal 21-31 [facility] Comment on above: Performed By: #### L [id number] #### [facility] ([facility]) [address] [place] [address] Creatinine [Mass/Vol] 0.84 mg/dL Normal 0.60-1.20 [facility] Comment on above: Performed By: #### L [id number] #### [facility] ([facility]) [address] [place] [address] GLOMERULAR FILTRATION RATE ML/MIN/1.73 SQ M.PREDICTED 74.7 mL/min/1.73m*2 Normal >60.0 [facility] Comment on above: Result Comment: The [facility]???s estimated glomerular filtration rate (eGFR) will no [...] group of individuals. Performed By: #### L [id number] #### [facility] ([facility]) [address] [place] [address] Glucose [Mass/Vol] 148 mg/dL High 70-100 [facility] Comment on above: Performed By: #### L [id number] #### [facility] ([facility]) [address] [place] [address] Potassium [Moles/Vol] 4.1 mmol/L Normal 3.5-5.1 [facility] Comment on above: Performed By: #### L [id number] #### [facility] ([facility]) [address] [place] [address] Protein [Mass/Vol] 5.8 g/dL Low 6.0-8.3 [facility] Comment on above: Performed By: #### L [id number] #### [facility] ([facility]) [address] [place] [address] Sodium [Moles/Vol] 136 mmol/L Normal 136-145 [facility] Comment on above: Performed By: #### L [id number] #### [facility] ([facility]) [address] [place] [address] Urea nitrogen [Mass/Vol] 27 mg/dL High 7-25 [facility] Comment on above: Performed By: #### L [id number] #### [facility] ([facility]) [address] [place] [address] UREA NITROGEN/CREATININE (MASS RATIO) IN SER/PLAS 32.1 Normal [facility] Comment on above: Performed By: #### L [id number] #### [facility] ([facility]) [address] [place] [address] HEMOGLOBIN A1Con 09-10-2023 Glucose [Mass/Vol] 252 mg/dL Normal [facility] Comment on above: Performed By: #### L [id number] #### [facility] ([facility]) [address] [place] [address] HbA1c (Bld) [Mass fraction] 10.4 % High 4.0-6.0 [facility] Comment on above: Performed By: #### L [id number] #### [facility] ([facility]) [address] [place] [address] LIPID PANELon 09-10-2023 CHOL/HDL 2.8 mg/dL Normal [facility] Comment on above: Performed By: #### L [id number] #### [facility] ([facility]) [address] [place] [address] Cholesterol [Mass/Vol] 148 mg/dL Normal 120-200 [facility] Comment on above: Performed By: #### L [id number] #### [facility] ([facility]) [address] [place] [address] Magnesium [Mass/Vol] 89 mg/dL Normal 40-149 [facility] Comment on above: Result Comment: TRIG LYCERIDE REFERENCE RANGE: 20 YEARS AND OLDER CARDIOVASCULAR RISK LESS THAN 150 mg/dL LOW RISK 150 TO 199 mg/dL BORDERLINE RISK 200 mg/dL AND GREATER HIGH RISK Performed By: #### L [id number] #### [facility] ([facility]) [address] [place] [address] Magnesium [Mass/Vol] 77 mg/dL Normal 0-160 [facility] Comment on above: Performed By: #### L [id number] #### [facility] ([facility]) [address] [place] [address] Magnesium [Mass/Vol] 53 mg/dL Normal 23-92 [facility] Comment on above: Performed By: #### L [id number] #### [facility] ([facility]AKER) [address] [place] [address] NON HDL CHOL. (LDL+VLDL) 95 Normal [facility] Comment on above: Performed By: #### L [id number] #### [facility] ([facility]) [address] [place] [address] TOTAL VLDL-C 18 mg/dL Normal 0-40 [facility] Comment on above: Performed By: #### L [id number] #### [facility] ([facility]) [address] [place] [address] MAGNESIUMon 09-10-2023 Magnesium [Mass/Vol] 2.1 mg/dL Normal 1.9-2.7 [facility] Comment on above: Performed By: #### L [id number] #### [facility] ([facility]) [address] [place] [address] NURSNOTEon 09-10-2023 NURSNOTVish AVMaicol reviewed and discussed with the patient. The patient has no further questions or concerns at this time. [employer] has delivered two medications to the room. The patient has notified her friend of needing a ride home ETA 1900. Normal [facility] POCT GLUCOSE METER UNSOLICIT ED RESULTSon 09-10-2023 Glucose [Mass/Vol] 156 mg/dL High 70-105 [facility] Comment on above: Order Comment: Waive d Testing in the ED is performed under the ED CLIA certificate #[id number]. Result Comment: [email or web address] Performed By: #### L [id number] #### [facility] ([facility]) [address] [place] [address] Glucose [Mass/Vol] 141 mg/dL High 70-105 [facility] Comment on above: Order Comment: Waive d Testing in the ED is performed under the ED CLIA certificate #[id number]. Result Comment: [email or web address] Performed By: #### L [id number] #### [facility] ([facility]) [address] [place] [address] 30on 09-09-2023 30 The patient is Moderately [...] prescribed range Outcome: Adequate for Discharge Normal [facility] 30 The patient is Moderately Stable - Low risk of patient condition declining or worsening The patient's goals for the shift include Comfort The clinical goals for the shift include comfort Normal [facility] CONSULTon 09-09-2023 CONSULT --- Attestation signed by [...] ???C (9 (more content not included)... Normal [facility] HPon 09-09-2023 History Of Present Illness Laura [...] of Abnormal ECG, CHF (congestive heart failure) ([facility]), Coronary artery disease, Diabetes mellitus ([facility]), Gout, Hypertension, Myocardial infarction ([facility]), and Sleep apnea. Surgical History She has [...] systolic heart failure. Coronary artery disease involving [place] coronary artery of [place] heart without angina pectoris status post stent x 4, last PCI 2013 Mixed hyperlipidemia. Resistant hypertension. Cerebrovascular disease. Type 2 diabetes mellitus. Given her acute systolic heart failure, will be proceeding with a coronary angiogram (more content not included)... Normal [facility] NURSNOTEon 09-09-2023 NURSNOTE Report given to Niels quintana RN from Roselia ARGUETA Any medications or safety alerts were reviewed. Any pending diagnostics and notifications were also reviewed, as well as any safety concerns or issues, abnormal labs, abnormal imagining, and abnormal assessment findings. Questions were answered. [facility] POCT GLUCOSE METER UNSOLICIT ED RESULTSon 09-09-2023 Glucose [Mass/Vol] 163 mg/dL High 70-105 [facility] Comment on above: Order Comment: Waive d Testing in the ED is performed under the ED CLIA certificate #[id number]. Result Comment: [email or web address] Performed By: #### L [id number] #### [facility] ([facility]AKER) [address] [place] [address] Glucose [Mass/Vol] 228 mg/dL High 70-105 [facility] Comment on above: Order Comment: Waive d Testing in the ED is performed under the ED CLIA certificate #[id number]. Result Comment: [email or web address] Performed By: #### L [id number] #### [facility] ([facility]ER) [address] [place] [address] 36on 08-28-2023 36 Reviewed their note. Lets proceed with a cardiac cath please for assessment of her acute systolic heart failure. They also recommended a LOOP recorder. Can we see if this can be done the same day? If not, will plan for cath first. Thanks! [facility] Orders Onlyon 08-28-2023 Orders Only [id number] Laura Lawson A 1950 F Date Provider Department Center 08/28/2023 92MATTHEW VERDUGO Family History Problem Relation Age of Onset JABARI disease Mother Heart attack Father Family Status - Relation Status Age at Mother Father [facility] 36on 08-21-2023 36 Any updates after he r neuro appt? [facility] 36on 08-18-2023 36 Regarding echo performed on 08/14/2023: SHANDRA Henderson, JAYSON Please let her know her labs show normal kidney function and blood counts. Her ECHO shows her the fluid around her heart has improved, only a small amount. Awaiting to hear from her neurology appt on 08/18 if okay to proceed with cardiac cath. Thanks! LM on patient's VM. [facility] Telephoneon 08-18-2023 Telephone [id number] Laura Lawson A 1950 Date Provider Department Center 08/18/2023 NIRAJ COOPER Family History Problem Relation Age of Onset JABARI disease Mother Heart attack Father Family Status - Relation Status Age at Mother Father [facility] 37on 07-31-2023 37 *Your recent heart ultrasound [...] 80mg daily *Follow-up after heart cath procedure [facility] Office Visiton 07-31-2023 Follow-up visit [id number] Laura Lawson A 1950 F Date Provider Department Center 07/31/2023 NIRAJ COOPER Family History Problem Relation Age of Onset JABARI disease Mother Heart attack Father Family Status - Relation Status Age at Mother Father Level of Service:88002 OR OFFICE/OUTPATIENT ESTABLISHED HIGH MDM 40 MIN Reason for Visit and Comments: Congestive Heart Failure [127] Hypertension [535670] [facility] 36on 07-24-2023 36 Regarding echo performed on 07/23/2023: Niraj San, SHANDRA Medina MA Can we find out when she will be seeing neurology? We need clearance from them to proceed with a heart cath for acute systolic heart failure given her recent stroke. Thank you! Spoke with patient and she has a neurology apt on 08/18. She is scheduled to see you next week, 07/31. Normal [facility] 36 Patient has acute systolic heart failure and she will need a cardiac cath. Can we please find out when she will be seeing neurology as we will need clearance from them before proceeding. Thank you! [facility] Telephoneon 07-24-2023 Telephone [id number] Laura Lawson A 1950 F Date Provider Department Center 07/24/2023 NIRAJ COOPER [facility] Family History Problem Relation Age of Onset JABARI disease Mother Heart attack Father Family Status - Relation Status Age at Mother Father [facility] Office Visiton 07-16-2023 Follow-up visit [id number] Laura Lawson A 1950 F Date Provider Department Center 07/16/2023 NIRAJ COOPER EST[facility] Family History Problem Relation Age of Onset JABARI disease Mother Heart attack Father Family Status - Relation Status Age at Mother Father Level of Service:74159 OR OFFICE/OUTPATIENT ESTABLISHED MOD MDM 30 MIN Reason for Visit and Comments: Hypertension [080952] [facility] 36on 07-08-2023 36 DC on 07/07/2022 Spoke to pts caregiver Latrice Piña reconciled with caregiver Pt is going to try to get follow up in next 7 days in [place] and will call to cancel her appt with [facility] cardiology. Will leave appt in place until pt confirms [facility] Documentationon 07-08-2023 Documentation [id number] Laura Lawson A 1950 F Date Provider Department Center 07/08/2023 [id number], RUDDY C [facility] Family History Problem Relation Age of Onset JABARI disease Mother Heart attack Father Family Status - Relation Status Age at Mother Father Reason for Visit and Comments: HF inpatient satisfaction survey sent. [Other] Normal [facility] Telephoneon 07-08-2023 Telephone [id number] Laura Lawson A 1950 F Date Provider Department Center 07/08/2023 2486-FRANK BOGGS [facility] Family History Problem Relation Age of Onset JABARI disease Mother Heart attack Father Family Status - Relation Status Age at Mother Father Reason for Visit and Comments: hospital DC follow up call [Other] Normal [facility] 30on 07-07-2023 30 The patient is Moderately [...] oxygen saturation or arterial blood gases Normal [facility] POCT GLUCOSE METER UNSOLICIT ED RESULTSon 07-07-2023 Glucose [Mass/Vol] 213 mg/dL High 70-105 [facility] Comment on above: Order Comment: Waive d Testing in the ED is performed under the ED CLIA certificate #[id number]. Result Comment: [email or web address] Performed By: #### L [id number] #### [facility] (BEAKER) [address] [place] [address] Glucose [Mass/Vol] 91 mg/dL Normal 70-105 [facility] Comment on above: Order Comment: Waive d Testing in the ED is performed under the ED CLIA certificate #[id number]. Result Comment: [email or web address] Performed By: #### L [id number] ####[facility] (BEAKER)[address] [place] [address] 30on 07-06-2023 30 The patient is Moderately [...] comfort level Outcome: Adequate for Discharge Normal [facility] 30 The patient is Moderately Stable - Low risk of patient condition declining or worsening The patient's goals for the shift include comfort The clinical goals for the shift include VSS, control blood sugar Over the shift, the patient did make progress toward the following goals. Problem: Respiratory - Adult Goal: Achieves optimal ventilation and oxygenation Outcome: Progressing Flowsheets (Taken 07/06/2023 7283) Achieves optimal ventilation and oxygenation: Assess for changes in respiratory status Assess for changes in mentation and behavior Position to facilitate oxygenation and minimize respiratory effort Respiratory therapy support as indicated Assess and instruct to report shortness of breath or any respiratory difficulty Oxygen supplementation based on oxygen saturation or arterial blood gases Normal [facility] 30 The patient is Moderately Stable - [...] safest level of function Outcome: Progressing Normal [facility] BASIC METABOLIC PANELon 06-10 Anion gap [Moles/Vol] 8 mmol/L Normal 7-20 [facility] Comment on above: Performed By: #### L [id number] #### [facility] ([facility]) [address] [place] [address] Calcium [Mass/Vol] 8.9 mg/dL Normal 8.6-10.3 [facility] Comment on above: Performed By: #### L [id number] #### [facility] ([facility]ER) [address] [place] [address] Chloride [Moles/Vol] 101 mmol/L Normal 98-107 [facility] Comment on above: Performed By: #### L [id number] #### [facility] (BEAKER) [address] [place] [address] CO2 [Moles/Vol] 28 mmol/L Normal 21-31 [facility] Comment on above: Performed By: #### L [id number] #### [facility] (BEAKER) [address] [place] [address] Creatinine [Mass/Vol] 0.95 mg/dL Normal 0.60-1.20 [facility] Comment on above: Performed By: #### L [id number] #### [facility] ([facility]) [address] [place] [address] GLOMERULAR FILTRATION RATE ML/MIN/1.73 SQ M.PREDICTED 64.5 mL/min/1.73m*2 Normal >60.0 [facility] Comment on above: Result Comment: The [facility]???s estimated glomerular filtration rate (eGFR) will no [...] group of individuals. Performed By: #### L [id number] #### [facility] ([facility]) [address] [place] [address] Glucose [Mass/Vol] 164 mg/dL High 70-100 [facility] Comment on above: Performed By: #### L [id number] #### [facility] ([facility]) [address] [place] [address] Potassium [Moles/Vol] 3.7 mmol/L Normal 3.5-5.1 [facility] Comment on above: Performed By: #### L [id number] #### [facility] ([facility]) [address] [place] [address] Sodium [Moles/Vol] 133 mmol/L Low 136-145 [facility] Comment on above: Performed By: #### L [id number] #### [facility] ([facility]) [address] [place] [address] Urea nitrogen [Mass/Vol] 23 mg/dL Normal 7-25 [facility] Comment on above: Performed By: #### L [id number] #### [facility] ([facility]) [address] [place] [address] UREA NITROGEN/CREATININE (MASS RATIO) IN SER/PLAS 24.2 Normal [facility] Comment on above: Performed By: #### L [id number] #### [facility] ([facility]) [address] [place] [address] MAGNESIUMon 01-28-2024 Magnesium [Mass/Vol] 2.0 mg/dL Normal 1.9-2.7 [facility] Comment on above: Performed By: #### L [id number] ####[facility] ([facility])[address] [place] [address] POCT GLUCOSE METER UNSOLICIT ED RESULTSon 07-06-2023 Glucose [Mass/Vol] 203 mg/dL High 70-105 [facility] Comment on above: Order Comment: Waive d Testing in the ED is performed under the ED CLIA certificate #[id number]. Result Comment: [email or web address] Performed By: #### L [id number] #### [facility] ([facility]) [address] [place] [address] Glucose [Mass/Vol] 286 mg/dL High 70-105 [facility] Comment on above: Order Comment: Waive d Testing in the ED is performed under the ED CLIA certificate #[id number]. Result Comment: [email or web address] Performed By: #### L [id number] ####[facility] ([facility])[address] [place] [address] Glucose [Mass/Vol] 267 mg/dL High 70-105 [facility] Comment on above: Order Comment: Waive d Testing in the ED is performed under the ED CLIA certificate #[id number]. Result Comment: [email or web address] [email or web address] Performed By: #### L [id number] ####[facility] ([facility])[address] [place] [address] Glucose [Mass/Vol] 150 mg/dL High 70-105 [facility] Comment on above: Order Comment: Waive d Testing in the ED is performed under the ED CLIA certificate #[id number]. Result Comment: [email or web address] [email or web address] Performed By: #### L [id number] #### [facility] ([facility]) [address] [place] [address] 30on 07-05-2023 30 The patient is Moderately [...] the next 3 months Outcome: Progressing Normal [facility] 30 Problem: Pain - Adul t Goal: [...] make progress toward the following goals. Normal [facility] COMPREHENSIVE METABOLIC PANE Agus 07-05-2023 Albumin [Mass/Vol] 3.0 g/dL Low 3.5-5.7 [facility] Comment on above: Performed By: #### L [id number] #### [facility] (BEAKER) [address] [place] [address] ALP [Catalytic activity/Vol] 82 U/L Normal 34-104 [facility] Comment on above: Performed By: #### L [id number] #### [facility] (BEAKER) [address] [place] [address] ALT [Catalytic activity/Vol] 15 U/L Normal 7-52 [facility] Comment on above: Performed By: #### L [id number] #### [facility] (BEAKER) [address] [place] [address] Anion gap [Moles/Vol] 10 mmol/L Normal 7-20 [facility] Comment on above: Performed By: #### L [id number] #### [facility] (BEAKER) [address] [place] [address] AST [Catalytic activity/Vol] 20 U/L Normal 13-39 [facility] Comment on above: Performed By: #### L [id number] #### [facility] (BEAKER) [address] [place] [address] Bilirubin [Mass/Vol] 1.0 mg/dL Normal 0.3-1.0 [facility] Comment on above: Performed By: #### L [id number] #### [facility] ([facility]AKER) [address] [place] [address] Calcium [Mass/Vol] 9.1 mg/dL Normal 8.6-10.3 [facility] Comment on above: Performed By: #### L [id number] #### [facility] (BEAKER) [address] [place] [address] Chloride [Moles/Vol] 100 mmol/L Normal 98-107 [facility] Comment on above: Performed By: #### L [id number] #### [facility] (BEAKER) [address] [place] [address] CO2 [Moles/Vol] 27 mmol/L Normal 21-31 [facility] Comment on above: Performed By: #### L [id number] #### [facility] (BEAKER) [address] [place] [address] Creatinine [Mass/Vol] 0.76 mg/dL Normal 0.60-1.20 [facility] Comment on above: Performed By: #### L [id number] #### [facility] ([facility]) [address] [place] [address] GLOMERULAR FILTRATION RATE ML/MIN/1.73 SQ M.PREDICTED 84.2 mL/min/1.73m*2 Normal >60.0 [facility] Comment on above: Result Comment: The [facility]???s estimated glomerular filtration rate (eGFR) will no [...] group of individuals. Performed By: #### L [id number] #### [facility] ([facility]) [address] [place] [address] Glucose [Mass/Vol] 87 mg/dL Normal 70-100 [facility] Comment on above: Performed By: #### L [id number] #### [facility] ([facility]) [address] [place] [address] Potassium [Moles/Vol] 3.4 mmol/L Low 3.5-5.1 [facility] Comment on above: Performed By: #### L [id number] #### [facility] ([facility]) [address] [place] [address] Protein [Mass/Vol] 4.9 g/dL Low 6.0-8.3 [facility] Comment on above: Performed By: #### L [id number] #### [facility] ([facility]) [address] [place] [address] Sodium [Moles/Vol] 134 mmol/L Low 136-145 [facility] Comment on above: Performed By: #### L [id number] #### [facility] ([facility]) [address] [place] [address] Urea nitrogen [Mass/Vol] 14 mg/dL Normal 7-25 [facility] Comment on above: Performed By: #### L [id number] #### [facility] ([facility]) [address] [place] [address] UREA NITROGEN/CREATININE (MASS RATIO) IN SER/PLAS 18.4 Normal [facility] Comment on above: Performed By: #### L [id number] #### [facility] ([facility]) [address] [place] [address] MAGNESIUMon 07-05-2023 Magnesium [Mass/Vol] 1.6 mg/dL Low 1.9-2.7 [facility] Comment on above: Performed By: #### L [id number] #### [facility] ([facility]) [address] [place] [address] POCT GLUCOSE METER UNSOLICIT ED RESULTSon 07-05-2023 Glucose [Mass/Vol] 238 mg/dL High 70-105 [facility] Comment on above: Order Comment: Waive d Testing in the ED is performed under the ED CLIA certificate #[id number]. Result Comment: [email or web address] Performed By: #### L [id number] #### [facility] ([facility]) [address] [place] [address] Glucose [Mass/Vol] 283 mg/dL High 70-105 [facility] Comment on above: Order Comment: Waive d Testing in the ED is performed under the ED CLIA certificate #[id number]. Result Comment: [email or web address] Performed By: #### L [id number] #### [facility] ([facility]) [address] [place] [address] Glucose [Mass/Vol] 141 mg/dL High 70-105 [facility] Comment on above: Order Comment: Waive d Testing in the ED is performed under the ED CLIA certificate #[id number]. Result Comment: [email or web address] Performed By: #### L [id number] #### [facility] [address] [place] [address] Glucose [Mass/Vol] 103 mg/dL Normal 70-105 [facility] Comment on above: Order Comment: Waive d Testing in the ED is performed under the ED CLIA certificate #[id number]. Result Comment: [email or web address] Performed By: #### L [id number] #### [facility] ([facility]) [address] [place] [address] Glucose [Mass/Vol] 87 mg/dL Normal 70-105 [facility] Comment on above: Order Comment: Waive d Testing in the ED is performed under the ED CLIA certificate #[id number]. Result Comment: [email or web address] Performed By: #### L [id number] #### [facility] ([facility]) [address] [place] [address] Glucose [Mass/Vol] 71 mg/dL Normal 70-105 [facility] Comment on above: Order Comment: Waive d Testing in the ED is performed under the ED CLIA certificate #[id number]. Result Comment: [email or web address] Performed By: #### L [id number] #### [facility] ([facility]) [address] [place] [address] 30on 07-04-2023 30 Daily Case Managemen t [...] Health Types of Home Health Service needed Custodial Please indicate your approval for this care by adding your name here: DANIELLEKARLENELY 07/04/23 1216 07/02/23 2347 Inpatient consult to Social Work Once Provider: (Not yet assigned) Question Answer Comment Is discharge planning needed? If yes, who is requesting discharge planning? Provider Select all services needed for the patient Custodial Facility (30 day convalescent stay) Please indicate your approval for this care by adding your name here: IVORY GARRETT 07/02/23 2357 Therapy Orders (From admission, onward) Start Ordered 07/04/23 1215 STEAM AND POWER SUPERINTENDENT Bedside Swallow Eval and Treat (to determine safe diet level) Until therapy completed Comments: Bedside dysphagia screening exam Question Answer Comment Reason for STEAM AND POWER SUPERINTENDENT Consult? Dysphagia (swallowing, poor intake) Reason for STEAM AND POWER SUPERINTENDENT Consult? Speech/language cognition Speech/language focus: Aphasia Speech/language focus: Dysarthria Can patient sit upright? Yes Does patient have a tracheostomy? No 07/04/23 1216 07/04/23 1215 STEAM AND POWER SUPERINTENDENT eval and treat Until therapy completed Question Answer Comment Reason for STEAM AND POWER SUPERINTENDENT Consult? Speech/language cognition Speech/language focus: Aphasia Speech/language focus: Dysarthria 07/04/23 1216 07/04/23 1213 PT eval and treat Until therapy completed Question: Reason for PT? Answer: weakness 07/04/23 1216 07/04/23 1213 OT eval and treat Until therapy completed Question: Reason for OT? Answer: weakness 07/04/23 1216 [facility] 30 The patient is Moderately Stable - Low risk of patient condition declining or worsening The patient's goals for the shift include comfort The clinical goals for the shift include VSS Over the shift, the patient did not make progress toward the following goals. Barriers to progression include na. Recommendations to address these barriers include na. [facility] 30 Problem: Pain - Adul t Goal: Verbalizes/displays adequate comfort level or baseline comfort level Outcome: Progressing Problem: Safety - Adult Goal: Free from fall injury Outcome: Progressing Flowsheets (Taken 07/03/20231999) Free from fall injury: Assess patient frequently for physical needs Identify cognitive and physical deficits and behaviors that affect risk of falls Anderson fall precautions as indicated by assessment The patient is Moderately Stable - Low risk of patient condition declining or worsening The patient's goals for the shift include comfort The clinical goals for the shift include VSS Over the shift, the patient did make progress toward the following goals. Normal [facility] COMPREHENSIVE METABOLIC PANE Agus 07-04-2023 Albumin [Mass/Vol] 3.0 g/dL Low 3.5-5.7 [facility] Comment on above: Performed By: #### L [id number] ####[facility] (BEAKER)[address] [place] [address] ALP [Catalytic activity/Vol] 74 U/L Normal 34-104 [facility] Comment on above: Performed By: #### L [id number] ####[facility] (BEAKER)[address] [place] [address] ALT [Catalytic activity/Vol] 19 U/L Normal 7-52 [facility] Comment on above: Performed By: #### L [id number] ####[facility] (BEAKER)[address] [place] [address] Anion gap [Moles/Vol] 6 mmol/L Low 7-20 [facility] Comment on above: Performed By: #### L [id number] ####[facility] (BEAKER)[address] [place] [address] AST [Catalytic activity/Vol] 17 U/L Normal 13-39 [facility] Comment on above: Performed By: #### L [id number] ####[facility] (BEAKER)[address] [place] [address] Bilirubin [Mass/Vol] 0.8 mg/dL Normal 0.3-1.0 [facility] Comment on above: Performed By: #### L [id number] ####[facility] [place] [address] Calcium [Mass/Vol] 9.4 mg/dL Normal 8.6-10.3 [facility] Comment on above: Performed By: #### L [id number] ####[facility] ([facility])[address] [place] [address] Chloride [Moles/Vol] 103 mmol/L Normal 98-107 [facility] Comment on above: Performed By: #### L [id number] ####[facility] ([facility])[address] [place] [address] CO2 [Moles/Vol] 30 mmol/L Normal 21-31 [facility] Comment on above: Performed By: #### L [id number] ####[facility] ([facility])[address] [place] [address] Creatinine [Mass/Vol] 0.65 mg/dL Normal 0.60-1.20 [facility] Comment on above: Performed By: #### L [id number] ####[facility] ([facility])[address] [place] [address] GLOMERULAR FILTRATION RATE ML/MIN/1.73 SQ M.PREDICTED 94.7 mL/min/1.73m*2 Normal >60.0 [facility] Comment on above: Result Comment: The [facility]???s estimated glomerular filtration rate (eGFR) will no [...] of individuals. Performed By: #### L [id number] ####[facility] ([facility])[address] [place] [address] Glucose [Mass/Vol] 69 mg/dL Low 70-100 [facility] Comment on above: Performed By: #### L [id number] ####[facility] [place] [address] Potassium [Moles/Vol] 3.2 mmol/L Low 3.5-5.1 [facility] Comment on above: Performed By: #### L [id number] ####[facility] ([facility])[address] [place] [address] Protein [Mass/Vol] 5.0 g/dL Low 6.0-8.3 [facility] Comment on above: Performed By: #### L [id number] ####[facility] ([facility])[address] [place] [address] Sodium [Moles/Vol] 136 mmol/L Normal 136-145 [facility] Comment on above: Performed By: #### L [id number] ####[facility] ([facility])[address] [place] [address] Urea nitrogen [Mass/Vol] 17 mg/dL Normal 7-25 [facility] Comment on above: Performed By: #### L [id number] ####[facility] ([facility])[address] [place] [address] UREA NITROGEN/CREATININE (MASS RATIO) IN SER/PLAS 26.2 Normal [facility] Comment on above: Performed By: #### L [id number] ####[facility] ([facility])[address] [place] [address] CONSULTon 07-04-2023 CONSULT --- Attestation signed by [...] acute heart failure exacerbation and COVID-positive at [facility]. Patient stated that she has not [...] NSTEMI and congestive heart failure exacerbation. At [facility], BNP greater than 2717. Troponin 0.12-->0.10. [...] history of Coronary artery disease, Diabetes mellitus ([facility]/HCC), Gout, Hypertension, and Sleep apnea. Surgical History [...] 183/87 -- -- (more content not included)... [facility] CONSULT --- Attestation signed by Elliott Clements [...] an 72 y.o. female who came from [facility] with N-STEMI, acute CHF exacerbation, KJ, covid positive obesity and CAD with 4 stents. Plavix stopped in August 2022. Cardiology is treating Pt for CHF exacerbation. Patient endorses chronic SOB but reports worsening prior to arrival to [facility]. Was given Lasix 40 mg IV while at [facility]. +covid-19. Chest X-ray showed cardiomegaly with vascular [...] 81 mg oral Daily 81 mg at 07/04/23901 atorvastatin 80 mg oral Nightly 80 mg at 07/03/23 214 carvedilol 6.25 mg oral BID 6.25 mg at 07/04/23901 dapagliflozin propanediol 10 mg oral Daily 10 mg at 07/04/23 09 glucose 24 g oral q15 min PRN Or dextrose 50 % in water (D50W) 25 g intravenous q15 min PRN furosemide 40 mg intravenous Daily 40 mg at 07/04/23 0905 heparin (porcine) 5,000 Units subcutaneous q12h FRANNY [...] negative INTEGUMENT/DEIRDRE (more content not included)... Normal [facility] [facility] CT HEAD WO IV CONTRASTon CT HEAD [...] lobe medially aerated IMPRESSION: Mild atrophy and mirj-qs-mijmkwpu chronic ischemic changes with no large acute [...] conditions/characterist ics Electronically signed: Chuck Mendoza. Normal [facility] CTA HEAD W AND WO IV CONTRAS [...] the distal vertebral artery bilaterally There is [id number] calcification in the distal left vertebral artery [...] out neoplasm Electronically signed: Chuck Mendoza. Normal [facility] CTA NECK W AND WO IV CONTRAS [...] viewed on a separate workstation. The [place] Symptomatic Carotid Endarterectomy Trial (NASCET) method for [...] reasonably achievable Electronically signed: Otto Mas. Normal [facility] MR BRAIN WO CONTRASTon 07-04 MR BRAIN [...] to chronic microvascular ischemic change. Approved by:Sebas Maxrdanouo07/04/2023 11:19 PM. I, Fortunato Milan,have reviewed the image(s) and agree with the findings in this report. Electronically signed: Fortunato Mlian. Normal [facility] POCT GLUCOSE METER UNSOLICIT ED RESULTSon 07-04-2023 Glucose [Mass/Vol] 186 mg/dL High 70-105 [facility] Comment on above: Order Comment: Waive d Testing in the ED is performed under the ED CLIA certificate #[id number]. Result Comment: [email or web address] Performed By: #### L [id number] #### [facility] ([facility]) [address] [place] [address] Glucose [Mass/Vol] 69 mg/dL Low 70-105 [facility] Comment on above: Order Comment: Waive d Testing in the ED is performed under the ED CLIA certificate #[id number]. Result Comment: [email or web address] Performed By: #### L [id number] ####[facility] ([facility])[address] [place] [address] Glucose [Mass/Vol] 71 mg/dL Normal 70-105 [facility] Comment on above: Order Comment: Waive d Testing in the ED is performed under the ED CLIA certificate #[id number]. Result Comment: [email or web address] Performed By: #### L [id number] ####[facility] ([facility])[address] [place] [address] Glucose [Mass/Vol] 83 mg/dL Normal 70-105 [facility] Comment on above: Order Comment: Waive d Testing in the ED is performed under the ED CLIA certificate #[id number]. Result Comment: [email or web address] Performed By: #### L [id number] ####[facility] ([facility])[address] [place] [address] Glucose [Mass/Vol] 76 mg/dL Normal 70-105 [facility] Comment on above: Order Comment: Waive d Testing in the ED is performed under the ED CLIA certificate #[id number]. Result Comment: [email or web address] Performed By: #### L [id number] ####[facility] ([facility])[address] [facility] [place] [address] TROPONIN Ion 07-04-2023 Troponin I.cardiac [Mass/Vol] 0.10 ng/mL High 0.00-0.04 [facility] Comment on above: Performed By: #### L [id number] ####[facility] (BEAKER)[address] [place] [address] 30on 07-03-2023 30 Daily Case Managemen t [...] Orders (From admission, onward) Start Ordered 07/02/23 235 Inpatient consult to Cardiology Once Specialty: Cardiology Provider: (Not yet assigned) Question: Reason for Consult? Answer: NSTEMI/CHF 07/02/23 235 Ancillary Consults (From admission, onward) Start Ordered 07/02/23 234 Inpatient consult to Social Work Once Provider: (Not yet assigned) Question Answer Comment Is discharge planning needed? If yes, who is requesting discharge planning? Provider Select all services needed for the patient Custodial Facility (30 day convalescent stay) Please indicate your approval for this care by adding your name here: IVORY GARRETT 07/02/23235607/02/232346 Consult to Nutrition Services Once Provider: (Not yet assigned) Question: Reason for Consult? Answer: NSTEMI/CHF 07/02/23 235 Normal [facility] 30 The patient is Moderately Stable - Low risk of patient condition declining or worsening The patient's goals for the shift include COMFORT The clinical goals for the shift include VSS Over the shift, the patient did not make progress toward the following goals. Barriers to progression include na. Recommendations to address these barriers include na. Normal [facility] 30 The patient is Moderately Stable - Low risk of patient condition declining or worsening The patient's goals for the shift include COMFORT The clinical goals for the shift include VSS Normal [facility] B-TYPE NATRIURETIC PEPTIDEon 07-03-2023 Natriuretic peptide B (Bld) [Mass/Vol] 2717 pg/mL High 0-100 [facility] Comment on above: Performed By: #### L [id number] #### [facility] (BEAKER) [address] [place] [address] CBC WITH AUTO DIFFERENTIALon 07-03-2023 Basophils (Bld) [#/Vol] 0.06 10*3/uL Normal 0.00-0.20 [facility] Comment on above: Performed By: #### L [id number] ####[facility] [place] [address] Basophils/100 WBC (Bld) 0.7 % Normal 0.0-1.0 [facility] Comment on above: Performed By: #### L [id number] ####[facility] ([facility])[address] [place] [address] Eosinophils (Bld) [#/Vol] 0.08 10*3/uL Normal 0.00-0.50 [facility] Comment on above: Performed By: #### L [id number] ####[facility] ([facility])[address] [place] [address] Eosinophils/100 WBC (Bld) 0.9 % Normal 0.0-6.0 [facility] Comment on above: Performed By: #### L [id number] ####[facility] ([facility])[address] [place] [address] Erythrocyte distribution width (RBC) [Ratio] 15.1 % High 11.5-15.0 [facility] Comment on above: Performed By: #### L [id number] ####[facility] [place] [address] ERYTHROCYTE MEAN CORPUSCULAR HEMOGLOBIN CONCENTRATION (G/DL) BY AUTOMATED 31.9 g/dL Low 32.0-35.0 [facility] Comment on above: Performed By: #### L [id number] ####[facility] [place] [address] Hematocrit (Bld) [Volume fraction] 39.8 % Normal 36.0-48.0 [facility] Comment on above: Performed By: #### L [id number] ####[facility] (BEAKER)[address] [place] [address] Hemoglobin (Bld) [Mass/Vol] 12.7 g/dL Normal 12.0-15.0 [facility] Comment on above: Performed By: #### L [id number] ####[facility] (BEAKER)[address] [place] [address] Immature granulocytes (Bld) [#/Vol] 0.03 10*3/uL Normal 0.00-0.20 [facility] Comment on above: Performed By: #### L [id number] ####[facility] (BEAKER)[address] [place] [address] Immature granulocytes/100 WBC (Bld) 0.3 % Normal 0.0-1.0 [facility] Comment on above: Performed By: #### L [id number] ####[facility] (BEAKER)[address] [place] [address] Lymphocytes (Bld) [#/Vol] 1.52 10*3/uL Normal 1.20-4.00 [facility] Comment on above: Performed By: #### L [id number] ####[facility] (BEAKER)[address] [place] [address] Lymphocytes/100 WBC (Bld) 17.6 % Low 20.0-45.0 [facility] Comment on above: Performed By: #### L [id number] ####[facility] (BEAKER)[address] [place] [address] MCH (RBC) [Entitic mass] 29.3 pg Normal 27.0-33.0 [facility] Comment on above: Performed By: #### L [id number] ####[facility] (BEAKER)[address] [place] [address] MCV (RBC) [Entitic vol] 91.9 fL Normal 82.0-98.0 [facility] Comment on above: Performed By: #### L [id number] ####[facility] (BEAKER)[address] [place] [address] Monocytes (Bld) [#/Vol] 1.20 10*3/uL High 0.10-1.00 [facility] Comment on above: Performed By: #### L [id number] ####[facility] (BEAKER)[address] [place] [address] Monocytes/100 WBC (Bld) 13.9 % High 5.0-12.0 [facility] Comment on above: Performed By: #### L [id number] ####[facility] (BEAKER)[address] [place] [address] Neutrophils (Bld) [#/Vol] 5.75 10*3/uL Normal 1.60-7.60 [facility] Comment on above: Performed By: #### L [id number] ####[facility] (BEAKER)[address] [place], [place] [address] Neutrophils/100 WBC (Bld) 66.6 % Normal 40.0-72.0 [facility] Comment on above: Performed By: #### L [id number] ####[facility] (BEAKER)[address] [place], [place] [address] NRBC (PER 100 WBCS) BY AUTOMATED COUNT 0.0 % Normal 0 [facility] Comment on above: Performed By: #### L [id number] ####[facility] (BEAKER)[address] [place], [place] [address] PLATELETS (10*3/UL) IN BLOOD AUTOMATED COUNT 354 10*3/uL Normal 150-400 [facility] Comment on above: Performed By: #### L [id number] ####[facility] (BEAKER)[address] [place] [address] RBC (Bld) [#/Vol] 4.33 10*6/uL Normal 3.80-5.00 [facility] [facility] Comment on above: Performed By: #### L [id number] ####[facility] ([facility]AK[facility])[address] [place] [address] WBC (Bld) [#/Vol] 8.64 10*3/uL Normal 4.00-10.60 [facility] Comment on above: Performed By: #### L [id number] ####[facility] ([facility] [place] [address] COMPREHENSIVE METABOLIC PANE Agus 07-03-2023 Albumin [Mass/Vol] 3.5 g/dL Normal 3.5-5.7 [facility] Comment on above: Performed By: #### L [id number] #### [facility] [address] [place] [address] ALP [Catalytic activity/Vol] 102 U/L Normal 34-104 [facility] Comment on above: Performed By: #### L [id number] #### [facility] [address] [place] [address] ALT [Catalytic activity/Vol] 24 U/L Normal 7-52 [facility] Comment on above: Performed By: #### L [id number] #### [facility] [address] [place] [address] Anion gap [Moles/Vol] 13 mmol/L Normal 7-20 [facility] Comment on above: Performed By: #### L [id number] #### [facility] [address] [place] [address] AST [Catalytic activity/Vol] 23 U/L Normal 13-39 [facility] Comment on above: Performed By: #### L [id number] #### [facility] [address] [place] [address] Bilirubin [Mass/Vol] 1.2 mg/dL High 0.3-1.0 [facility] Comment on above: Performed By: #### L [id number] #### [facility] [address] [place] [address] Calcium [Mass/Vol] 9.4 mg/dL Normal 8.6-10.3 [facility] Comment on above: Performed By: #### L [id number] #### [facility] ([facility]) [address] [place] [address] Chloride [Moles/Vol] 98 mmol/L Normal 98-107 [facility] Comment on above: Performed By: #### L [id number] #### [facility] [address] [place] [address] CO2 [Moles/Vol] 27 mmol/L Normal 21-31 [facility] Comment on above: Performed By: #### L [id number] #### [facility] ([facility]) [address] [place] [address] Creatinine [Mass/Vol] 0.71 mg/dL Normal 0.60-1.20 [facility] Comment on above: Performed By: #### L [id number] #### [facility] ([facility]) [address] [place] [address] GLOMERULAR FILTRATION RATE ML/MIN/1.73 SQ M.PREDICTED 91.4 mL/min/1.73m*2 Normal >60.0 [facility] Comment on above: Result Comment: The [facility]???s estimated glomerular filtration rate (eGFR) will no [...] individuals. Performed By: #### L [id number] #### [facility] ([facility] [address] [place] [address] Glucose [Mass/Vol] 323 mg/dL High 70-100 [facility] Comment on above: Performed By: #### L [id number] #### [facility] ([facility] [address] [place] [address] Potassium [Moles/Vol] 3.6 mmol/L Normal 3.5-5.1 [facility] Comment on above: Performed By: #### L [id number] #### [facility] ([facility]) [address] [place] [address] Protein [Mass/Vol] 6.0 g/dL Normal 6.0-8.3 [facility] Comment on above: Performed By: #### L [id number] #### [facility] ([facility]) [address] [place] [address] Sodium [Moles/Vol] 134 mmol/L Low 136-145 [facility] Comment on above: Performed By: #### L [id number] #### [facility] ([facility]) [address] [place] [address] Urea nitrogen [Mass/Vol] 11 mg/dL Normal 7-25 [facility] Comment on above: Performed By: #### L [id number] #### [facility] ([facility]) [address] [place] [address] UREA NITROGEN/CREATININE (MASS RATIO) IN SER/PLAS 15.5 Normal [facility] Comment on above: Performed By: #### L [id number] #### [facility] ([facility]) [address] [place] [address] HEMOGLOBIN A1Con 07-03-2023 Glucose [Mass/Vol] 263 mg/dL Normal [facility] Comment on above: Performed By: #### L [id number] #### [facility] ([facility]) [address] [place] [address] HbA1c (Bld) [Mass fraction] 10.8 % High 4.0-6.0 [facility] Comment on above: Performed By: #### L [id number] #### [facility] [address] [place] [address] LIPID PANELon 07-03-2023 CHOL/HDL 2.7 mg/dL Normal [facility] Comment on above: Performed By: #### L [id number] #### [facility] ([facility]) [address] [place] [address] Cholesterol [Mass/Vol] 170 mg/dL Normal 120-200 [facility] Comment on above: Performed By: #### L [id number] #### [facility] ([facility]) [address] [place] [address] Magnesium [Mass/Vol] 105 mg/dL Normal 40-149 [facility] Comment on above: Result Comment: TRIG LYCERIDE REFERENCE RANGE: 20 YEARS AND OLDER CARDIOVASCULAR RISK LESS THAN 150 mg/dL LOW RISK 150 TO 199 mg/dL BORDERLINE RISK 200 mg/dL AND GREATER HIGH RISK Performed By: #### L [id number] #### [facility] ([facility]) [address] [place] [address] Magnesium [Mass/Vol] 87 mg/dL Normal 0-160 [facility] Comment on above: Performed By: #### L [id number] #### [facility] ([facility]) [address] [place] [address] Magnesium [Mass/Vol] 62 mg/dL Normal 23-92 [facility] Comment on above: Performed By: #### L [id number] #### [facility] ([facility]) [address] [place] [address] NON HDL CHOL. (LDL+VLDL) 108 Normal [facility] Comment on above: Performed By: #### L [id number] #### [facility] ([facility]) [address] [place] [address] TOTAL VLDL-C 21 mg/dL Normal 0-40 [facility] Comment on above: Performed By: #### L [id number] #### [facility] ([facility]) [address] [place] [address] MAGNESIUMon 07-03-2023 Magnesium [Mass/Vol] 1.9 mg/dL Normal 1.9-2.7 [facility] Comment on above: Performed By: #### L [id number] ####[facility] ([facility])[address] [place] [address] Magnesium [Mass/Vol] 1.4 mg/dL Low 1.9-2.7 [facility] Comment on above: Performed By: #### L [id number] #### [facility] ([facility]) [address] [place] [address] NURSNOTEon 07-03-2023 NURSNOTE Covid swabbed patien t twice, both tests resulted in negative results. KENDALL Ford informed. Results entered in computer. Normal [facility] PHOSPHORUSon 07-03-2023 Magnesium [Mass/Vol] 2.7 mg/dL Normal 2.5-5.0 [facility] Comment on above: Performed By: #### L [id number] ####[facility] ([facility])[address] [place] [address] POCT GLUCOSE METER UNSOLICIT ED RESULTSon 07-03-2023 Glucose [Mass/Vol] 116 mg/dL High 70-105 [facility] Comment on above: Order Comment: Waive d Testing in the ED is performed under the ED CLIA certificate #[id number]. Result Comment: [email or web address] Performed By: #### L [id number] ####[facility] ([facility])[address] [place] [address] Glucose [Mass/Vol] 188 mg/dL High 70-105 [facility] Comment on above: Order Comment: Waive d Testing in the ED is performed under the ED CLIA certificate #[id number]. Result Comment: [email or web address] Performed By: #### L [id number] ####[facility] ([facility])[address] [place] [address] Glucose [Mass/Vol] 260 mg/dL High 70-105 [facility] Comment on above: Order Comment: Waive d Testing in the ED is performed under the ED CLIA certificate #[id number]. Result Comment: [email or web address] Performed By: #### L [id number] #### [facility] ([facility]) [address] [place] [address] Glucose [Mass/Vol] 425 mg/dL High 70-105 [facility] Comment on above: Order Comment: Waive d Testing in the ED is performed under the ED CLIA certificate #[id number]. Result Comment: [email or web address] Performed By: #### L [id number] #### [facility] (BEAKER) [address] [place] [address] PROGRESSon 07-03-2023 SARS-CoV-2 (COVID-19) RNA GUS+probe Ql [...] Pt eligible for CR with NSTEMI dx. 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 Normal [facility] TROPONIN Ion 07-03-2023 Troponin I.cardiac [Mass/Vol] 0.12 ng/mL Critically high 0.00-0.04 [facility] Comment on above: Result Comment: M-TR OPONIN INITIAL CRITICAL HIGH; RESPUN AND RETESTED Performed By: #### L [id number] ####[facility] ([facility])[address] [place] [address] 30on 07-02-2023 30 The patient is Moderately Stable - Low risk of patient condition declining or worsening The patient's goals for the shift include COMFORT The clinical goals for the shift include VSS Normal [facility] XR lumbar spine AP/LAT/FLX/E XTon 03-13-2023 XR lumbar spine AP/LAT/FLX/EXT [facility] [place] [address] XRay Report Signed Patient: Laura Lawson MR#: [id number] : 1950 Acct:[id number] Age/Sex: 72 / F ADM Date: 03/13/23 Loc: XD Room: Type: [facility] Attending Dr: Abner Roa MD Copies to: [...] Amaury Devlin M.D.03/13/2023 3:02 PM Dictation Location: [facility] Transcribed By: [facility] 03/13/23 1502 Dictated By: Amaury Devlin DO 03/13/23 1500 Signed By: 03/13/23 1502 Normal [facility] Office Visiton 02-26-2023 Follow-up visit [id number] Laura Lawson 1950 F Date Provider Department Center 02/26/2023 Emily-DULCE GARCIA ESTHELA [facility] Family History Problem Relation Age of Onset JABARI disease Mother Heart attack Father Family Status - Relation Status Age at Mother Father Level of Service:33011 OR OFFICE/OUTPATIENT ESTABLISHED MOD [facility] 30-39 MIN Reason for Visit and Comments: Follow-up [116677] - 6 month Normal [facility] MG MAMM SCREEN 3D YANETH CADon 11-06-2022 MG MAMM SCREEN 3D YANETH CAD Patient: LAURA LAWSON. Exam Date: 11/06/2022 : 1950 Gender:F Ordering : DR VLAD CESAR M.D. Admission #: [id number] Family : Order #: [id number] CLICK HERE TO VIEW EXAM RADIOLOGY REPORT [...] Treatments None Family Cancers None LOCATION: [facility] BREAST COMPOSITION: Scattered areas fibroglandular density. [...] Villanueva M.D. on 11/06/2022 at 16:56 Normal [facility] ECHOCARDIO M/2D COMPLETEon 1 07-18-2021 ECHOCARDIO M/2D COMPLETE Patient: LAURA LAWSON Exam Date: 05/17/2022 : 1950 Gender:F Ordering : DR VLAD CESAR M.D. Admission #: [id number] Family : DR JULITO ZENDEJAS M.D. Order #: [id number] CLICK HERE TO VIEW EXAM ECHOCARDIOGRAM REPORT [...] Zendejas M.D. on 05/17/2022 at 18:42 Normal [facility] CBC AUTO DIFFon 05-14-2022 BASO # 0.0 103/ul Normal 0.0-0.1 [facility] Comment on above: Performed By: #### C BC #### [facility] [address] [address] [address] Hieu Horvath Basophils/100 WBC (Bld) 0.5 % Normal 0.2-2.0 [facility] Comment on above: Performed By: #### C BC #### [facility] [address] [place] [address] Dr. Hieu Horvath EO # 0.2 103/ul Normal 0.0-0.7 [facility] Comment on above: Performed By: #### C BC #### [facility] [address] [place] [address] Dr. Hieu Horvath Eosinophils/100 WBC (Bld) 2.5 % Normal 0.9-7.0 [facility] Comment on above: Performed By: #### C BC #### [facility] [address] [place] [address] Dr. Hieu Horvath Erythrocyte distribution width (RBC) [Ratio] 14.0 % Normal 11.0-15.0 [facility] Comment on above: Performed By: #### C BC #### [facility] [address] [place] [address] Dr. Hieu Horvath Hematocrit (Bld) [Volume fraction] 35.5 % Critically low 36.0-48.0 [facility] Comment on above: Performed By: #### C BC #### [facility] [address] [place] [address] Dr. Hieu Horvath Hemoglobin (Bld) [Mass/Vol] 11.5 g/dL Critically low 12.0-16.0 [facility] Comment on above: Performed By: #### C BC #### [facility] [address] [place] [address] Dr. Hieu Horvath IG # 0.02 10e3/ul Normal 0.00-0.03 [facility] Comment on above: Performed By: #### C BC #### [facility] [address] [place] [address] Dr. Hieu Horvath IG % 0.2 % Normal 0.0-0.5 [facility] Comment on above: Performed By: #### C BC #### [facility] [address] [address] [address] Hieu Horvath LYMPH # 1.6 103/ul Normal 1.2-3.8 [facility] Comment on above: Performed By: #### C BC #### [facility] [address] [place] [address] Dr. Hieu Horvath Lymphocytes/100 WBC (Bld) 19.2 % Critically low 20.5-60.0 [facility] Comment on above: Performed By: #### C BC #### [facility] [address] [place] [address] Dr. Hieu Horvath MANUAL DIFF REQ NO Normal [facility] Comment on above: Performed By: #### C BC #### [facility] [address] [place] [address] Dr. Hieu Horvath MCH (RBC) [Entitic mass] 29.9 pg Normal 26.7-34.0 [facility] Comment on above: Performed By: #### C BC #### [facility] [address] [place] [address] Dr. Hieu Horvath MCHC (RBC) [Mass/Vol] 32.4 g/dL Normal 29.9-35.2 [facility] Comment on above: Performed By: #### C BC #### [facility] [address] [place] [address] Dr. Hieu Horvath MCV (RBC) [Entitic vol] 92.4 fL Normal 81.0-99.0 [facility] Comment on above: Performed By: #### C BC #### [facility] [address] [place] [address] Dr. Hieu Horvath MONO # 1.1 103/ul Critically high 0.3-0.8 [facility] Comment on above: Performed By: #### C BC #### [facility] [address] [place] [address] Dr. Hieu Horvath Monocytes/100 WBC (Bld) 12.4 % Critically high 1.7-12. 0 [facility] Comment on above: Performed By: #### C BC #### [facility] [address] [place] [address] Dr. Hieu Horvath NEUT # 5.6 103/ul Normal 1.4-6.5 [facility] Comment on above: Performed By: #### C BC #### [facility] [address] [place] [address] Dr. Hieu Horvath Neutrophils/100 WBC (Bld) 65.2 % Normal 43.0-75.0 [facility] Comment on above: Performed By: #### C BC #### [facility] [address] [place] [address] Dr. Hieu Horvath Platelet mean volume (Bld) [Entitic vol] 8.9 fL Critically low 9.5-13.5 [facility] Comment on above: Performed By: #### C BC #### [facility] [address] [place] [address] Dr. Hieu Horvath PLT 342 103/ul Normal 150-450 [facility] Comment on above: Performed By: #### C BC #### [facility] [address] [place] [address] Dr. Hieu Horvath RBC 3.84 106/ul Critically low 4.20-5.40 [facility] Comment on above: Performed By: #### C BC #### [facility] [address] [place] [address] Dr. Hieu Horvath WBC 8.5 103/ul Normal 4.0-11.0 [facility] Comment on above: Performed By: #### C BC #### [facility] [address] [place] [address] Dr. Hieu Horvath CULTURE BLOODon 05-14-2022 Microscopic examination of blood, culture Culture Observations: NO GROWTH AT 5 DAYS. Normal [facility] Comment on above: Performed By: #### B [id number] #### [facility] [address] [place] [address] Dr. Hieu Horvath Performed By: #### B [id number] #### [facility] [address] [place] [address] Dr. Hieu Horvath LACTATE/LACTIC ACIDon 2021 Lactate [Moles/Vol] 1.8 mmol/L Normal 0.4-1.9 [facility] Comment on above: Performed By: #### L ACT #### [facility] [address] [address] [address] Hieu Horvath PROF CHEM 8 (BAS METB)on Anion gap [Moles/Vol] 10.3 mmol/L Normal [facility] Comment on above: Performed By: #### B MP #### [facility] [address] [address] [address] Hieu Horvath Calcium [Mass/Vol] 9.8 mg/dL Normal 8.5-10.1 [facility] Comment on above: Performed By: #### B MP #### [facility] [address] [address] [address] Hieu Horvath Chloride [Moles/Vol] 95 mmol/L Critically low 98-107 [facility] Comment on above: Performed By: #### B MP #### [facility] [address] [address] [address] Hieu Horvath CO2 [Moles/Vol] 31.4 mmol/L Normal 21.0-32.0 [facility] Comment on above: Performed By: #### B MP #### [facility] [address] [address] [address] Hieu Horvath Creatinine [Mass/Vol] 1.13 mg/dL Critically high 0.55-1.02 [facility] Comment on above: Performed By: #### B MP #### [facility] [address] [address] [address] Hieu Horvath EGFR-AF PERUVIAN 58 mL/min/1.73m2 Critically low >=60 [facility] Comment on above: Performed By: #### B MP #### [facility] [address] [address] [address] Hieu Horvath EGFR-NON AF PERUVIAN 48 mL/min/1.73m2 Critically low >=60 [facility] Comment on above: Performed By: #### B MP #### [facility] [address] [address] [address] Hieu Horvath Glucose [Mass/Vol] 370 mg/dL Critically high 74-106 [facility] Comment on above: Performed By: #### B MP #### [facility] [address] [address] [address] Hieu Horvath Potassium [Moles/Vol] 3.7 mmol/L Normal 3.5-5.1 [facility] Comment on above: Performed By: #### B MP #### [facility] [address] [address] [address] Hieu Horvath Sodium [Moles/Vol] 133 mmol/L Critically low 136-145 [facility] Comment on above: Performed By: #### B MP #### [facility] [address] [address] [address] Hieu Horvath Urea nitrogen [Mass/Vol] 29.0 mg/dL Critically high 7.0-18.0 [facility] Comment on above: Performed By: #### B MP #### [facility] [address] [address] [address] Hieu Horvath Urea nitrogen/Creatinine [Mass ratio] 25.7 mg/mg Normal [facility] Comment on above: Performed By: #### B MP #### [facility] [address] [address] [address] Hieu Horvath US JAKE DOP LEG [...] RUSSELL YATES Date: 2022-05-14 17:04 Normal [facility] Glucose Glucometer (BldC) [M ass/Vol]Ordered By: Chidi Bowen on 04-03-2022 Glucose [Mass/Vol] 187 mg/dL [facility] Comment on above: Random Glucose Refer ence Range is dependent on time and content of last meal. Glucose of more than 200 mg/dL in a nonstressed, ambulatory subject supports the diagnosis of Diabetes Mellitus. No Panel InformationOrdered By: Chidi Bowen on 04-03-2022 Bedside Glucose Comment Glu2: cleaned meter [facility] No Panel InformationOrdered By: Chidi Bowen on 03-28-2022 Bedside Glucose #[address]/rn [facility] Glucose mean value [Mass/vol ume] in Blood Estimated from glycated hemoglobinOrdered By: Tuyet Burks on 03-24-2022 Average glucose Estimated from glycated hemoglobin (Bld) [Mass/Vol] 203 mg/dL [facility] Hemoglobin A1c percentageOrd ered By: Tuyet Burks on 03-24-2022 HbA1c (Bld) [Mass fraction] 8.7 % 4.3-5.6 [facility] Comment on above: Increased risk for d iabetes: 5.7 - 6.4diabetes: >6.4glycemic control for adults with diabetes: <7.0 Albumin [Mass/volume] in Ser um or PlasmaOrdered By: Chidi Bowen on 03-23-2022 Albumin [Mass/Vol] 2.9 g/dL 3.2-5.5 [facility] Basophils Auto (Bld) [#/Vol] Ordered By: Chidi Bowen on 03-23-2022 Basophils (Bld) [#/Vol] 0.0 10*3/uL 0.0-0.2 [facility] Basophils/100 WBC Auto (Bld) Ordered By: Chidi Bowen on 03-23-2022 Basophils/100 WBC (Bld) 0.4 % . [facility] Creatinine and Glomerular fi ltration rate.predicted panel (S/P/Bld)Ordered By: Chidi Bowen on 03-23-2022 Creatinine [Mass/Vol] 0.97 mg/dL 0.44-1.03 [facility] Eosinophils Auto (Bld) [#/Vo l]Ordered By: Chidi Bowen on 03-23-2022 Eosinophils (Bld) [#/Vol] 0.1 10*3/uL 0.0-0.45 [facility] Eosinophils/100 WBC Auto (Bl d)Ordered By: Chidi Bowen on 03-23-2022 Eosinophils/100 WBC (Bld) 1.1 % . [facility] Erythrocyte distribution wid th Auto (RBC) [Ratio]Ordered By: Chidi Bowen on 03-23-2022 Erythrocyte distribution width (RBC) [Ratio] 14.2 % 11.9-15.3 [facility] Estimated glomerular filtrat ion rate (GFR) non- AmericanOrdered By: Chidi Bowen on 03-23-2022 GFR/1.73 sq M.predicted among non-blacks MDRD (S/P/Bld) [Vol rate/Area] 57 mL/Min [facility] Globulin Calc (S) [Mass/Vol] Ordered By: Chidi Bowen on 03-23-2022 Globulin (S) [Mass/Vol] 2.7 g/dL [facility] Hematocrit Auto (Bld) [Volum e fraction]Ordered By: Chidi Bowen on 03-23-2022 Hematocrit (Bld) [Volume fraction] 33.0 % 34.0-46.4 [facility] Hemoglobin [Mass/volume] in BloodOrdered By: Chidi Bowen on 03-23-2022 Hemoglobin (Bld) [Mass/Vol] 10.9 g/dL 11.8-15.4 [facility] - Hematology and Cell countsOrdered By: Chidi Bowen on 03-23-2022 Nucleated RBC/100 WBC (Bld) [Ratio] 0.1 % 0-0.5 [facility] Leukocytes [#/volume] in Blo od by Automated countOrdered By: Chidi Bowen on 03-23-2022 WBC (Bld) [#/Vol] 12.0 10*3/uL 4.5-11.0 [facility] Lymphocytes Auto (Bld) [#/Vo l]Ordered By: Chidi Bowen on 03-23-2022 Lymphocytes (Bld) [#/Vol] 1.8 10*3/uL 1.00-4.8 [facility] Lymphocytes/100 WBC Auto (Bl d)Ordered By: Chidi Bowen on 03-23-2022 Lymphocytes/100 WBC (Bld) 15.0 % . [facility] MCH Auto (RBC) [Entitic mass ]Ordered By: Chidi Bowen on 03-23-2022 MCH (RBC) [Entitic mass] 30.3 pg 24.7-34.3 [facility] MCHC Auto (RBC) [Mass/Vol]Or dered By: Chidi Bowen on 03-23-2022 MCHC (RBC) [Mass/Vol] 33.2 g/dL 32.0-35.0 [facility] MCV Auto (RBC) [Entitic vol] Ordered By: Chidi Bowen on 03-23-2022 MCV (RBC) [Entitic vol] 91.4 fL 80-100 [facility] Monocytes Auto (Bld) [#/Vol] Ordered By: Chidi Bowen on 03-23-2022 Monocytes (Bld) [#/Vol] 1.2 10*3/uL 0.0-0.8 [facility] Monocytes/100 WBC Auto (Bld) Ordered By: Chidi Bowen on 03-23-2022 Monocytes/100 WBC (Bld) 9.8 % . [facility] Neutrophils Auto (Bld) [#/Vo l]Ordered By: Chidi Bowen on 03-23-2022 Neutrophils (Bld) [#/Vol] 8.9 10*3/uL 1.8-7.7 [facility] Neutrophils/100 WBC Auto (Bl d)Ordered By: Chidi Bowen on 03-23-2022 Neutrophils/100 WBC (Bld) 73.7 % . [facility] No Panel InformationOrdered By: Chidi Bowen on 03-23-2022 Estimated GFR () > 60 mL/Min [facility] Comment on above: GFR estimated refere nce range: According to KDOQI guidelines, <60 ml/min/1.73m2 is sufficient to diagnose a patient with chronic kidney disease. Pharmacy Creatinine Clearance (Chem 67.19 [facility] Platelet mean volume Auto (B ld) [Entitic vol]Ordered By: Chidi Bowen on 03-23-2022 Platelet mean volume (Bld) [Entitic vol] 7.3 fL 6.3-10.7 [facility] Platelets Auto (Bld) [#/Vol] Ordered By: Chidi Bowen on 03-23-2022 Platelets (Bld) [#/Vol] 309 10*3/uL 150-450 [facility] Protein [Mass/volume] in Ser um or PlasmaOrdered By: Chidi Bowen on 03-23-2022 Protein [Mass/Vol] 5.6 g/dL 6.1-7.9 [facility] RBC Auto (Bld) [#/Vol]Ordere d By: Chidi Bowen on 03-23-2022 RBC (Bld) [#/Vol] 3.61 10*6/uL 3.60-5.00 [facility] Serum or plasma alanine ng otransferase measurement without P-5'-P (enzymatic activiOrdered By: Chidi Bowen on 03-23-2022 ALT No additional P-5'-P [Catalytic activity/Vol] 28 U/L 1060 [facility] Serum or plasma albumin/glob ulin mass ratioOrdered By: Chidi Bowen on 03-23-2022 Albumin/Globulin [Mass ratio] 1.1 {ratio} [facility] Serum or plasma alkaline areli sphatase measurement (enzymatic activity/volume)Ordered By: Chidi Bowen on 03-23-2022 ALP [Catalytic activity/Vol] 57 U/L 32-92 [facility] Serum or plasma anion gap de terminationOrdered By: Chidi Bowen on 03-23-2022 Anion gap [Moles/Vol] 10.9 mmol/L 6.0-15.0 [facility] Serum or plasma aspartate am inotransferase measurement (enzymatic activity/volume)Ordered By: Chidi Bowen on 03-23-2022 AST [Catalytic activity/Vol] 26 U/L 10-42 [facility] Serum or plasma calcium annabel urement (mass/volume)Ordered By: Chidi Bowen on 03-23-2022 Calcium [Mass/Vol] 10.0 mg/dL 8.2-10.2 [facility] Serum or plasma chloride meagan surement (moles/volume)Ordered By: Chidi Bowen on 03-23-2022 Chloride [Moles/Vol] 100 mmol/L 95-114 [facility] Serum or plasma glucose annabel urement (mass/volume)Ordered By: Chidi Bowen on 03-23-2022 Glucose [Mass/Vol] 101 mg/dL 70-100 [facility] Comment on above: ADA recommended refe rence rangeRandom Glucose Reference Range is dependent on time and content of last meal. Glucose of more than 200 mg/dL in a nonstressed, ambulatory subject supports the diagnosis of Diabetes Mellitus. Serum or plasma potassium me asurement (moles/volume)Ordered By: Chidi Bowen on 03-23-2022 Potassium [Moles/Vol] 3.6 mmol/L 3.5-5.1 [facility] Serum or plasma prealbumin m easurement (mass/volume)Ordered By: Chidi Bowen on 03-23-2022 Prealbumin [Mass/Vol] 16.4 mg/dL 18.0-38.0 [facility] Serum or plasma sodium measu rement (moles/volume)Ordered By: Chidi Bowen on 03-23-2022 Sodium [Moles/Vol] 137 mmol/L 136-146 [facility] Serum or plasma total biliru bin measurement (mass/volume)Ordered By: Chidi Bowen on 03-23-2022 Bilirubin [Mass/Vol] 0.6 mg/dL 0.3-1.2 [facility] Serum or plasma total carbon dioxide measurement (moles/volume)Ordered By: Chidi Bowen on 03-23-2022 CO2 [Moles/Vol] 29.7 mmol/L 22.0-30.0 [facility] Serum or plasma urea nitroge n measurement (mass/volume)Ordered By: Chidi Bowen on 03-23-2022 Urea nitrogen [Mass/Vol] 46 mg/dL 9-23 [facility] Glucose Glucometer (BldC) [M ass/Vol]Ordered By: Abner Roa on 03-22-2022 Glucose [Mass/Vol] 183 mg/dL [facility] Comment on above: Random Glucose Refer ence Range is dependent on time and content of last meal. Glucose of more than 200 mg/dL in a nonstressed, ambulatory subject supports the diagnosis of Diabetes Mellitus. No Panel InformationOrdered By: Abner Roa on 03-22-2022 Bedside Glucose Comment Glu2: cleaned meter [facility] COVID-19 Positive/NegativeOr dered By: Abner Roa on 03-20-2022 SARS-CoV-2 (COVID-19) N gene GUS+probe Ql (Resp) Negative Negative [facility] Comment on above: Testing for SARS-CoV -2 by RT-PCRThis test was developed and its performance characteristics determined by [employer] ([employer]) and validated at the [facility]. This test has not been FDA cleared [...] 03-19-2022 Bedside Glucose #2 Comment Will notify /kendall [facility] COVID-19 Positive/NegativeOr dered By: Abner Roa on 03-14-2022 SARS-CoV-2 (COVID-19) N gene GUS+probe Ql (Resp) Negative Negative [facility] Comment on above: Testing for SARS-CoV -2 by RT-PCRThis test was developed and its performance characteristics determined by [employer]) and validated at the [facility]. This test has not been FDA cleared [...] 03-05-2022 Basophils (Bld) [#/Vol] 0.0 10*3/uL 0.0-0.2 [facility] Basophils/100 WBC Auto (Bld) Ordered By: Abner Roa on 03-05-2022 Basophils/100 WBC (Bld) 0.4 % . [facility] Blood hemoglobin measurement (mass/volume)Ordered By: Abner Roa on 03-05-2022 Hemoglobin (Bld) [Mass/Vol] 11.8 g/dL 11.8-15.4 [facility] Blood leukocytes automated c ount (number/volume)Ordered By: Abner Roa on 03-05-2022 WBC (Bld) [#/Vol] 9.2 10*3/uL 4.5-11.0 [facility] Creatinine and Glomerular fi ltration rate.predicted panel (S/P/Bld)Ordered By: Abner Roa on 03-05-2022 Creatinine [Mass/Vol] 0.93 mg/dL 0.44-1.03 [facility] Eosinophils Auto (Bld) [#/Vo l]Ordered By: Abner Roa on 03-05-2022 Eosinophils (Bld) [#/Vol] 0.1 10*3/uL 0.0-0.45 [facility] Eosinophils/100 WBC Auto (Bl d)Ordered By: Abner Roa on 03-05-2022 Eosinophils/100 WBC (Bld) 1.4 % . [facility] Erythrocyte distribution wid th Auto (RBC) [Ratio]Ordered By: Abner Roa on 03-05-2022 Erythrocyte distribution width (RBC) [Ratio] 14.3 % 11.9-15.3 [facility] Estimated glomerular filtrat ion rate (GFR) non- AmericanOrdered By: Abner Roa on 03-05-2022 GFR/1.73 sq M.predicted among non-blacks MDRD (S/P/Bld) [Vol rate/Area] 60 mL/Min [facility] Hematocrit Auto (Bld) [Volum e fraction]Ordered By: Abner Roa on 03-05-2022 Hematocrit (Bld) [Volume fraction] 35.6 % 34.0-46.4 [facility] Laboratory - Hematology and Cell countsOrdered By: Abner Roa on 03-05-2022 Nucleated RBC/100 WBC (Bld) [Ratio] 0.0 % 0-0.5 [facility] Lymphocytes Auto (Bld) [#/Vo l]Ordered By: Abner Roa on 03-05-2022 Lymphocytes (Bld) [#/Vol] 1.4 10*3/uL 1.00-4.8 [facility] Lymphocytes/100 WBC Auto (Bl d)Ordered By: Abner Roa on 03-05-2022 Lymphocytes/100 WBC (Bld) 15.4 % . [facility] MCH Auto (RBC) [Entitic mass ]Ordered By: Abner Roa on 03-05-2022 MCH (RBC) [Entitic mass] 30.4 pg 24.7-34.3 [facility] MCHC Auto (RBC) [Mass/Vol]Or dered By: Abner Roa on 03-05-2022 MCHC (RBC) [Mass/Vol] 33.2 g/dL 32.0-35.0 [facility] MCV Auto (RBC) [Entitic vol] Ordered By: Abner Roa on 03-05-2022 MCV (RBC) [Entitic vol] 91.7 fL 80-100 [facility] Monocytes Auto (Bld) [#/Vol] Ordered By: Abner Roa on 03-05-2022 Monocytes (Bld) [#/Vol] 0.8 10*3/uL 0.0-0.8 [facility] Monocytes/100 WBC Auto (Bld) Ordered By: Abner Roa on 03-05-2022 Monocytes/100 WBC (Bld) 9.2 % . [facility] Neutrophils Auto (Bld) [#/Vo l]Ordered By: Abner Roa on 03-05-2022 Neutrophils (Bld) [#/Vol] 6.8 10*3/uL 1.8-7.7 [facility] Neutrophils/100 WBC Auto (Bl d)Ordered By: Abner Roa on 03-05-2022 Neutrophils/100 WBC (Bld) 73.6 % . [facility] No Panel InformationOrdered By: Abner Roa on 03-05-2022 Estimated GFR () > 60 mL/Min [facility] Comment on above: GFR estimated refere nce range: According to KDOQI guidelines, <60 ml/min/1.73m2 is sufficient to diagnose a patient with chronic kidney disease. Pharmacy Creatinine Clearance (Chem N/A [facility] Platelet mean volume Auto (B ld) [Entitic vol]Ordered By: Abner Roa on 03-05-2022 Platelet mean volume (Bld) [Entitic vol] 7.5 fL 6.3-10.7 [facility] Platelets Auto (Bld) [#/Vol] Ordered By: Abner Roa on 03-05-2022 Platelets (Bld) [#/Vol] 285 10*3/uL 150-450 [facility] RBC Auto (Bld) [#/Vol]Ordere d By: Abner Roa on 03-05-2022 RBC (Bld) [#/Vol] 3.88 10*6/uL 3.60-5.00 [facility] Serum or plasma anion gap de terminationOrdered By: Abner Roa on 03-05-2022 Anion gap [Moles/Vol] 14.8 mmol/L 6.0-15.0 [facility] Serum or plasma calcium annabel urement (mass/volume)Ordered By: Abner Roa on 03-05-2022 Calcium [Mass/Vol] 10.1 mg/dL 8.2-10.2 [facility] Serum or plasma chloride meagan surement (moles/volume)Ordered By: Abner Roa on 03-05-2022 Chloride [Moles/Vol] 99 mmol/L 95-114 [facility] Serum or plasma glucose annabel urement (mass/volume)Ordered By: Abner Roa on 03-05-2022 Glucose [Mass/Vol] 206 mg/dL 70-100 [facility] Comment on above: ADA recommended refe rence rangeRandom Glucose Reference Range is dependent on time and content of last meal. Glucose of more than 200 mg/dL in a nonstressed, ambulatory subject supports the diagnosis of Diabetes Mellitus. Serum or plasma potassium me asurement (moles/volume)Ordered By: Abner Roa on 03-05-2022 Potassium [Moles/Vol] 4.5 mmol/L 3.5-5.1 [facility] Serum or plasma sodium measu rement (moles/volume)Ordered By: Abner Roa on 03-05-2022 Sodium [Moles/Vol] 136 mmol/L 136-146 [facility] Serum or plasma total carbon dioxide measurement (moles/volume)Ordered By: Abner Roa on 03-05-2022 CO2 [Moles/Vol] 26.7 mmol/L 22.0-30.0 [facility] Serum or plasma urea nitroge n measurement (mass/volume)Ordered By: Abner Roa on 03-05-2022 Urea nitrogen [Mass/Vol] 20 mg/dL 9-23 [facility] Diabetic Self Management [facility] 03-17-2020 Diabetic Self Management Education [id number] CD:127 [facility] Coding Summary.on 04-08-2019 Coding Summary. CODING DATE: 019 [facility] STATUS: PAYOR: Medicare ADMIT DX: REASON FOR [...] Theodore CphT Date Saved: 04/08/2019 02:24 pm [facility] Vital Signs Date Time Vital Sign Value Performing Clinician Facility 10-23-2023 10:33-0400 Body height 162.56 cm II Vlad Cesar Work Phone: [facility] 10-23-2023 10:33-0400 Body mass index (BMI) [Ratio] 38.6 kg/m2 II Vlad Cesar Work Phone: [facility] 10-23-2023 10:33-0400 Body weight 102 kg II Vlad Cesar Work Phone: [facility] 08-19-2023 11:27-0400 Body height 157.5 cm Robbi Uribe MD Work Phone: [facility] 08-19-2023 11:27-0400 Body mass index (BMI) [Ratio] 41.15 kg/m2 Robbi Uribe MD Work Phone: [facility] 08-19-2023 11:27-0400 Body weight 102.06 kg Robbi Uribe MD Work Phone: [facility] 08-19-2023 11:27-0400 Diastolic blood pressure 58 mm[Hg] Robbi Uribe MD Work Phone: [facility] 08-19-2023 11:27-0400 Heart rate 63 /min Robbi Uribe MD Work Phone: [facility] 08-19-2023 11:27-0400 Systolic blood pressure 149 mm[Hg] Robbi Uribe MD Work Phone: [facility] 07-21-2023 10:26-0500 Body height 158.8 cm Vlad Cesar MD Work Phone: [facility] 07-21-2023 10:26-0500 Body mass index (BMI) [Ratio] 41.22 kg/m2 Vlad Cesar MD Work Phone: [facility] 07-21-2023 10:26-0500 Body weight 103.87 kg Vlad Cesar MD Work Phone: [facility] 07-21-2023 10:26-0500 Diastolic blood pressure 82 mm[Hg] Vlad Cesar MD Work Phone: [facility] 07-21-2023 10:26-0500 Heart rate 66 /min Vlad Cesar MD Work Phone: [facility] [employer] 07-21-2023 10:26-0500 SaO2% (BldA) [Mass fraction] 98 % Vlad Cesar MD Work Phone: [facility] [employer] 07-21-2023 10:26-0500 Systolic blood pressure 136 mm[Hg] Vlad Cesar MD Work Phone: [facility] [employer] 03-13-2023 10:20-0400 Body height 162.56 cm Abner Roa Other [facility] 03-13-2023 10:20-0400 Body mass index (BMI) [Ratio] 45.83 kg/m2 Abner Roa Other [facility] 03-13-2023 10:20-0400 Body weight 121.11 kg Abner Roa Other [facility] 09-12-2022 10:40-0400 Body height 162.56 cm Abner Roa Other [facility] 09-12-2022 10:40-0400 Body mass index (BMI) [Ratio] 42.05 kg/m2 Abner Roa Other [facility] 09-12-2022 10:40-0400 Body weight 111.13 kg Abner Roa Other [facility] 09-12-2022 10:40-0400 Diastolic blood pressure 80 mm[Hg] Abner Roa Other [facility] 09-12-2022 10:40-0400 Systolic blood pressure 128 mm[Hg] Abner Roa Other [facility] 06-13-2022 16:20-0500 Body height 162.56 cm Abner Roa Other [facility] 06-13-2022 16:20-0500 Body mass index (BMI) [Ratio] 42.91 kg/m2 Abner Roa Other [facility] 06-13-2022 16:20-0500 Body weight 113.4 kg Abner Roa Other [facility] 04-18-2022 12:00-0500 Body height 162.56 cm Abner Roa Other [facility] 04-18-2022 12:00-0500 Body mass index (BMI) [Ratio] 42.74 kg/m2 Abner Roa Other [facility] 04-18-2022 12:00-0500 Body weight 112.95 kg Abner Roa Other [facility] 04-03-2022 13:01-0400 Body temperature 97.7 [degF] II Vlad Cesar Work Phone: [facility] 04-03-2022 13:01-0400 Diastolic blood pressure 66 mm[Hg] II Vlad Cesar Work Phone: [facility] 04-03-2022 13:01-0400 Heart rate 61 /min II Vlad Cesar Work Phone: [facility] 04-03-2022 13:01-0400 Respiratory rate 20 /min II Vlad Cesar Work Phone: [facility] 04-03-2022 13:01-0400 SaO2% (BldA) [Mass fraction] 96 % II Vlad Cesar Work Phone: [facility] 04-03-2022 13:01-0400 Systolic blood pressure 149 mm[Hg] II Vlad Cesar Work Phone: [facility] 04-03-2022 07:05-0400 Body height 160.02 cm II Vlad Cesar Work Phone: [facility] 03-31-2022 06:02-0400 Body weight 115.1 kg II Vlad Cesar Work Phone: [facility] 03-22-2022 14:02-0400 Diastolic blood pressure 73 mm[Hg] II Vlad Cesar Work Phone: [facility] 03-22-2022 14:02-0400 Systolic blood pressure 134 mm[Hg] II Vlad Cesar Work Phone: [facility] 03-22-2022 11:12-0400 Body temperature 97.6 [degF] II Vlad Cesar Work Phone: [facility] 03-22-2022 11:12-0400 Heart rate 66 /min II Vlad Cesar Work Phone: [facility] 03-22-2022 11:12-0400 Respiratory rate 16 /min II Vlad Cesar Work Phone: [facility] 03-22-2022 11:12-0400 SaO2% (BldA) [Mass fraction] 95 % II Vlad Cesar Work Phone: [facility] 03-22-2022 06:41-0400 Body weight 116 kg II Vlad Cesar Work Phone: [facility] 03-20-2022 17:30-0400 Inhaled oxygen flow rate 2 L/min II Vald Cesar Work Phone: [facility] 03-19-2022 09:55-0400 Body height 160.02 cm II Vlad Cesar Work Phone: [facility] 03-18-2022 08:15-0400 Body mass index (BMI) [Ratio] 44.5 kg/m2 II Vlad Cesar Work Phone: [facility] 01-15-2022 14:40-0400 Body height 162.56 cm Abner Roa Other [facility] 01-15-2022 14:40-0400 Body mass index (BMI) [Ratio] 42.74 kg/m2 Abner Roa Other [facility] 01-15-2022 14:40-0400 Body weight 112.95 kg Abner Roa Other [facility] 12-07-2021 12:30-0400 Body height 162.56 cm Devang Saavedra Other [facility] Other 12-07-2021 12:30-0400 Body mass index (BMI) [Ratio] 42.74 kg/m2 Devang Saavedra Other [facility] 12-07-2021 12:30-0400 Body weight 112.95 kg Devang Saavedra Other [facility] 12-07-2021 12:30-0400 Diastolic blood pressure 76 mm[Hg] Devang Saavedra Other [facility] Other 12-07-2021 12:30-0400 Systolic blood pressure 132 mm[Hg] Devang Saavedra Other [facility] Other 12-06-2021 16:00-0400 Body height 162.56 cm Abner Roa Other [facility] 12-06-2021 16:00-0400 Body mass index (BMI) [Ratio] 43.59 kg/m2 Abner Roa Other [facility] 12-06-2021 16:00-0400 Body weight 115.21 kg Abner Roa Other [facility] 11-08-2021 17:15-0400 Body weight 115.21 kg Devang Saavedra Other [facility] 11-08-2021 17:15-0400 Diastolic blood pressure 72 mm[Hg] Devang Savaedra Other [facility] Other 11-08-2021 17:15-0400 SaO2% (BldA) [Mass fraction] 98 % Devang Saavedra Other [facility] 11-08-2021 17:15-0400 Systolic blood pressure 136 mm[Hg] Devang Saavedra Other [facility] 10-24-2021 17:15-0400 Body weight 115.21 kg Devang Saavedra Other [facility] Other 10-24-2021 17:15-0400 Diastolic blood pressure 70 mm[Hg] Devang Saavedra Other [facility] Other 10-24-2021 17:15-0400 Systolic blood pressure 116 mm[Hg] Devang Saavedra Other [facility] Other 10-15-2021 11:45-0400 Body weight 120.57 kg Devang Saavedra Other [facility] Other 10-15-2021 11:45-0400 Diastolic blood pressure 66 mm[Hg] Devang Saavedra Other [facility] Other 10-15-2021 11:45-0400 SaO2% (BldA) [Mass fraction] 93 % Devang Saavedra Other [facility] Other 10-15-2021 11:45-0400 Systolic blood pressure 124 mm[Hg] Devang Saavedra Other [facility] Other 09-25-2021 11:30-0400 Body weight 121.47 kg Devang Saavedra Other [facility] Other 09-25-2021 11:30-0400 Diastolic blood pressure 62 mm[Hg] Devang Saavedra Other [facility] Other 09-25-2021 11:30-0400 SaO2% (BldA) [Mass fraction] 97 % Devang Saavedra Other [facility] Other 09-25-2021 11:30-0400 Systolic blood pressure 138 mm[Hg] Devang Saavedra Other [facility] Other Encounters Encounter Date Encounter Type Care Provider Facility Start: 12-04-2023 End: 12-04-2023 ambulatory [facility] Start: 11-24-2023 End: 11-24-2023 ambulatory VLAD CESAR Not Available Start: 10-23-2023 End: 10-23-2023 ambulatory Abner Roa Facility:[facility] Start: 10-23-2023 End: 10-23-2023 ambulatory II Vlad Cesar Work Phone: [facility] Work Phone: Start: 10-23-2023 End: 10-23-2023 Patient encounter procedure II Vlad Cesar Work Phone: [facility] Work Phone: Start: 10-14-2023 End: 10-14-2023 ambulatory [facility] Start: 10-08-2023 Evaluation and management of inpatient [facility] Start: 10-08-2023 ambulatory [facility] Start: 10-08-2023 End: 10-09-2023 Evaluation and management of inpatient [facility] Start: 10-01-2023 End: 10-01-2023 ambulatory MYA CARTERBARTOLO Not Available Start: 09-26-2023 End: 09-26-2023 ambulatory [facility] Start: 09-24-2023 End: 09-24-2023 ambulatory VLAD CESAR Not Available Start: 09-09-2023 Evaluation and management of inpatient [facility] Start: 09-09-2023 ambulatory [facility] Start: 09-09-2023 End: 09-10-2023 Evaluation and management of inpatient [facility] Start: 09-04-2023 Telephone encounter [facility] Comment on above: NEW PATIENT REFERRAL Start: 08-19-2023 End: 08-19-2023 [facility] Start: 08-19-2023 End: 08-19-2023 Office outpatient visit 25 minutes Robbi Uribe MD Work Phone: [facility] Comment on above: TIA (transient ische bibi attack) (Primary Dx); Bilateral carpal tunnel syndrome Start: 07-31-2023 End: 07-31-2023 ambulatory [facility] Start: 07-21-2023 End: 07-21-2023 Transitional care manage srvc 14 day discharge Vlad Cesar MD Work Phone: [facility] Comment on above: COVID (Primary Dx); NSTEMI (non-ST elevated myocardial infarction) (CMS/HCC); Acute on chronic diastolic heart failure (CMS/HCC); Type 2 diabetes mellitus with hyperglycemia, with long-term current use of insulin ([facility]); 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); Morbid (severe) obesity due to excess calories (E66.01); Body mass index [BMI] 45.0-49.9, adult (Z68.42); Atherosclerosis of [place] coronary artery of [place] heart with angina pectoris ([facility]/HCC) Start: 07-21-2023 End: 07-21-2023 ambulatory VLAD CESAR Not Available Start: 07-16-2023 End: 07-16-2023 ambulatory NIRAJ SAN [facility] Start: 07-08-2023 Telephone encounter Tasha Girard RN [facility] Start: 07-07-2023 End: 07-07-2023 Evaluation and management of inpatient SHAWNA ROOTUR [facility] Start: 07-04-2023 Evaluation and management of inpatient ANGELIKA SANTOS [facility] Start: 07-04-2023 Evaluation and management of inpatient [facility] Start: 07-04-2023 Evaluation and management of inpatient [facility] Start: 07-03-2023 Evaluation and management of inpatient IVORY GERRY [facility] Start: 07-02-2023 End: 07-07-2023 Evaluation and management of inpatient UNKNOWN UNKNOWN [facility] Start: 06-26-2023 End: 06-26-2023 ambulatory MYA CISSE Not Available Start: 06-25-2023 End: 06-25-2023 ambulatory VLAD CESAR Not Available Start: 04-21-2023 End: 04-21-2023 ambulatory VLAD CESAR Not Available Start: 03-13-2023 Office outpatient vi sit 15 minutes Abner Roa [facility] Start: 03-13-2023 End: 03-13-2023 ambulatory Abner Roa Facility:[facility] Start: 03-13-2023 End: 03-13-2023 ambulatory II Vlad Cesar Work Phone: [facility] Work Phone: Start: 03-13-2023 End: 03-13-2023 Patient encounter procedure II Vlad Cesar Work Phone: [facility] [place] Work Phone: Start: 02-26-2023 End: 02-26-2023 ambulatory DULCE RADHA [facility] Start: 12-12-2022 End: 12-12-2022 ambulatory Abner Roa Facility:[facility] Start: 11-06-[address] VLAD CESAR Facilit y:[facility] Start: 09-12-2022 Office outpatient vi sit 15 minutes Abner Roa [facility] Start: 09-12-2022 End: 09-12-2022 ambulatory II Vlad Cesar Work Phone: [facility] Work Phone: Start: 09-12-2022 End: 09-12-2022 Patient encounter procedure II Vlad Cesar Work Phone: [facility] [place] Work Phone: Start: 06-13-2022 End: 06-13-2022 Patient encounter procedure II Vlad Cesar Work Phone: [facility] [place] Work Phone: Start: 06-13-2022 End: 06-13-2022 ambulatory II Vlad Cesar Work Phone: [facility] Work Phone: Start: 06-13-2022 Postop follow up vis it related to original px Abner Roa [facility] Start: 05-17-2022 End: 05-18-[address] VLAD CESAR Facility:[facility] Start: 05-14-2022 End: 05-14-[address] VLAD CESAR Facility:[facility] Start: 05-09-2022 End: 05-09-2022 ambulatory II Vlad Cesar Work Phone: [facility] Work Phone: Start: 05-09-2022 End: 05-09-2022 Discharged Recurring II Vlad Cesar Work Phone: [facility] Work Phone: Start: 05-09-2022 Registered Recurring II Vlad Cesar Work Phone: [facility] Work Phone: Start: 04-18-2022 End: 04-18-2022 ambulatory Abner Roa Other [facility] [employer] Other Start: 04-18-2022 Postop follow up vis it related to original px Abner Roa [facility] Start: 04-09-2022 End: 04-09-2022 ambulatory II Vlad Cesar Work Phone: [facility] Work Phone: Start: 04-09-2022 End: 04-09-2022 Patient encounter procedure II Vlad Cesar Work Phone: [facility] Start: 03-22-2022 End: 04-03-2022 Evaluation and management of inpatient II Vlad Cesar Work Phone: [facility] Start: 03-18-2022 Admission to [facility] Abner Roa [facility] Start: 03-18-2022 End: 03-18-2022 ambulatory Abner oRa Other [facility] [employer] Other Start: 03-18-2022 End: 03-22-2022 Evaluation and management of inpatient II Vlad Cesar Work Phone: [facility] [place] [facility] Start: 03-14-2022 End: 03-14-2022 ambulatory II Vlad Cesar Work Phone: [facility] Work Phone: Start: 03-14-2022 End: 03-14-2022 Patient encounter procedure II Vlad Cesar Work Phone: [facility]-Pre-Surgical Testing Start: 03-05-2022 End: 03-05-2022 ambulatory II Vlad Cesar Work Phone: [facility] Work Phone: Start: 03-05-2022 End: 03-05-2022 Patient encounter procedure II Vlad Cesar Work Phone: [facility]-Pre-Surgical Testing Start: 01-15-2022 End: 01-15-2022 ambulatory Abner Roa Other [facility] Other Start: 01-15-2022 Office outpatient vi sit 40 minutes Abner Roa [facility] Start: 01-09-2022 End: 01-09-2022 Patient encounter procedure MD Abner Roa Work Phone: [facility]-Center for Breast Care Start: 01-07-2022 End: 01-07-2022 ambulatory Devang Saavedra Other [facility] Other Start: 01-07-2022 Telephone encounter Devang Saavedra [facility] Start: 01-03-2022 End: 01-03-2022 Patient encounter procedure MD Abner Roa Work Phone: [facility] [place] Start: 12-07-2021 End: 12-07-2021 ambulatory Devang Saavedra Other [facility] Other Start: 12-07-2021 Office outpatient vi sit 25 minutes Devang Saavedra [facility] [place] Start: 12-06-2021 End: 12-06-2021 ambulatory Abner Roa Other [facility] Other Start: 12-06-2021 Office outpatient ne w 30 minutes Abner Roa [facility] Start: 11-09-2021 End: 11-09-2021 ambulatory Abner Roa Other [facility] Other Start: 11-09-2021 Telephone encounter Abner Roa [facility] Start: 11-08-2021 End: 11-08-2021 ambulatory Devang Keri Other [facility] Other Start: 11-08-2021 Office outpatient vi sit 25 minutes Devang Keri [facility] Start: 10-24-2021 End: 10-24-2021 ambulatory Devang Keri Other [facility] Other Start: 10-24-2021 Office outpatient vi sit 25 minutes Devang Keri [facility] Start: 10-15-2021 End: 10-15-2021 ambulatory Devang Keri Other [facility] Other Start: 10-15-2021 Office outpatient vi sit 25 minutes Devang Keri [facility] Start: 10-04-2021 (Procedure) Short Devang Saavedra [facility] Start: 10-04-2021 End: 10-04-2021 ambulatory Devang Keri Other [facility] Other Start: 09-25-2021 End: 09-25-2021 ambulatory Devang Keri Other [facility] Other Start: 09-25-2021 Office outpatient ne w 45 minutes Devang Keri [facility] Start: 08-18-2018 End: 08-19-2018 Patient encounter procedure DEFAULT PHYSICIAN Facility:[facility] Start: 08-17-2018 End: 08-18-2018 Patient encounter procedure DEFAULT PHYSICIAN Facility:[facility] Procedures Date Procedure Procedure Detail Performing [...] 03-24-2022 Duplex scan of lower limb veins II Vlad Cesar Work Phone: Start: 03-18-2022 OR [...] of carpal tunnel surgery of right wrist MARK Cesar Work Phone: Plan of Treatment Date Care Activity Detail Author Start: 08-18-2024 Adult BMI Screening Adult BMI Screen ing [facility] BRAIN [facility] Start: 08-18-2024 Depression Screening Depression Scre ening [facility] Start: 08-18-2024 Tobacco Screening Tobacco Screening [facility] Start: 06-25-2024 Medicare Annual Well ness (AWV) Medicare Annual Wellness (AWV) [facility] Start: 06-25-2024 Pneumococcal Vaccine : 65+ Years (1 - PCV) Pneumococcal Vaccine: 65+ Years (1 - PCV) [facility] Comment on above: Postponed from 11/23 (Patient Refused) Start: 06-25-2024 Screening for malign ant neoplasm of colon Colorectal Cancer Screening [facility] Comment on above: Postponed from 11/23 (Patient Refused) Start: 03-10-2024 Urine screening for protein Diabetes: Urine Protein Screening [facility] Start: 12-15-2023 End: 12-15-2023 Patient encounter procedure 12/15/2023 11:00 AM EDT Office Visit [facility] [address] [place] [address] [phone] Casey Christopher MD [address] [place] [address], [address], [address] [place] [address] [facility] Start: 12-07-2023 Influenza vaccination Influenza Vacc ine (#1) [facility] Comment on above: Postponed from 02/07 (Patient Refused) Start: 11-07-2023 Screening for malign ant neoplasm of breast Mammogram [facility] Start: 10-25-2023 Glaucoma screening Diabetes: R etinopathy Screening [facility] Start: 10-02-2023 Hemoglobin A1c measurement Diabetes: Hemoglobin A1C [facility] Start: 09-24-2023 End: 09-24-2023 Patient encounter procedure 09/24/2023 11:00 AM EDT Office Visit [facility] [address] [facility] [address] [place] [phone] Vlad Cesar MD [address] [facility] [address] [place] [address] [facility] Start: 09-23-2023 End: 09-23-2023 Patient encounter procedure 09/23/2023 1:00 PM EDT Procedure Visit [facility] [address] [place] [address] Mya Cisse DPM [address] [place] [address] [facility] Start: 08-19-2023 End: 08-19-2023 Patient encounter procedure 08/19/2023 11:30 AM EDT Office Visit [facility] [address] [place] [address] [phone] Robbi Uribe MD [address] [facility], [address], [address] [place] [address] [facility] Start: 07-30-2023 End: 07-30-2023 Patient encounter procedure 07/30/2023 11:30 AM EST Office Visit [facility] [address] [facility] [address] [place] [phone] Vlad Cesar MD [address] [facility] [address] [place] [address] [facility] Start: 02-07-2023 Influenza vaccination Influenza Vacc ine [facility] Start: 04-03-2022 [facility] Start: 03-22-2022 Hospital admission [facility] Start: 03-22-2022 Referral to clinical top tile decorator [facility] Start: 03-21-2022 [facility] Start: 03-18-2022 Computer Assisted Procedure of [place] Computer Assisted Procedure of [place] [facility] Start: 03-18-2022 Excision of Lumbar Vertebral Disc, Open Approach Excision of Lumbar Vertebral Disc, Open Approach [facility] Start: 03-18-2022 Fusion of 2 or more Lumbar Vertebral Joints with Interbody Fusion Device, Anterior Approach, Anterior Column, Open Approach Fusion of 2 or more Lumbar Vertebral Joints with Interbody Fusion Device, Anterior Approach, Anterior Column, Open Approach [facility] Start: 03-18-2022 Fusion of 2 or more Lumbar Vertebral Joints with Synthetic Substitute, Posterior Approach, Posterior Column, Open Approach Fusion of 2 or more Lumbar Vertebral Joints with Synthetic Substitute, Posterior Approach, Posterior Column, Open Approach [facility] Start: 03-18-2022 Introduction of Recombinant Bone Morphogenetic Protein into Joints, Open Approach Introduction of Recombinant Bone Morphogenetic Protein into Joints, Open Approach [facility] Start: 01-09-2022 Dual energy X-ray absorptiometry XR dexa axial skeleton [facility] Start: 01-09-2022 End: 01-09-2022 Patient encounter procedure Departed Clinical [facility] Start: 2017 Fall Risk Screening Fall Risk Screen ing [facility] Start: 2002 Administration of varicella zoster vaccine Zoster (Shingles) Vaccine (1 of 2) [facility] Start: 11-24-1971 DTaP,Tdap and Td Vaccines (1 - Tdap) DTaP,Tdap and Td Vaccines (1 - Tdap) [facility] Start: 1970 Adult BMI Follow Up Plan Adult BMI Follow Up Plan [facility] Start: 1970 Adult BMI Screening Adult BMI Screen ing [facility] Start: 1964 Depression Screening Depression Scre ening [facility] Start: 1964 Tobacco Screening Tobacco Screening [facility] Start: 1952 Medicare Annual Well ness Visit Medicare Annual Wellness Visit [facility] Start: 1952 Screening for malign ant neoplasm of colon [facility] Patient Education TLSO and LSO [facility] Work Phone: Patient referral [facility] Work Phone: [facility] Payers Date Payer Category Payer Self-pay [id number] 2022 Private Health Insurance [id number] 2017 Medicare [id number] 1959 Medicare [id number] 2.1 [id number] 1959 Private Health Insurance [id number] 1952 Unknown [id number] 2.16.8 [id number] 1952 Unknown [id number] 2.16.8 [id number] 1952 Unknown [id number] 2.16.84 [id number] 1952 Unknown [id number] 2.16.84 0.1.880906.3.579.2.593 1952 Unknown [id number] 2.16.84 [id number] 1952 Unknown [id number] 2.16.8 40.1.508961.3.579.2.1286 1952 Unknown [id number] 2.16.84 0.1.033133.3.579.2.1259 1952 Unknown [id number] 2.16.84 0.1.756994.3.579.2.1259 1952 Unknown [id number] 2.16.84 0.1.618173.3.579.2.1259 1952 Unknown [id number] 2.16.84 0.1.802604.3.579.2.1259 1952 Unknown [id number] 2.16.84 0.1.197278.3.579.2.1259 1952 Unknown [id number] 2.16.84 0.1.322622.3.579.2.1259 1952 Unknown [id number] 2.16.840. [id number] Unknown Unknown [id number] 2.16.8 40.1.893549.3.579.2.531 Unknown [id number] 2.16.8 [id number] Unknown [id number] 2.16.8 [id number] Social History Date Type Detail Facility Start: 01-12-2023 End: 08-19-2023 Sex Assigned At [facility] Start: 1950 Sex Assigned At Female F [facility] Start: 03-05-2022 End: 03-23-2022 Tobacco smoking status NHIS Never smoked tobacco (finding) [facility] Tobacco smoking stat [facility] Tobacco smoking consumption unknown [facility] Start: 1950 Sex Assigned At Not on file P [facility] Start: 12-20-2022 End: 08-19-2023 Tobacco use and exposure Smokeless tobacco non-user [facility] Start: 07-21-2023 Alcohol intake Lifetime non-d sharon (finding) [facility] Start: 01-12-2023 End: 08-19-2023 History of [...] Not at all [facility] (I/We) worried whe er (my/our) food would run out before (I/we) got money to buy more. Never true [facility] Start: 10-11-2022 Alcohol Comment Caffeine: 1-2 cups per day [facility] Start: 08-19-2023 Alcohol intake Ex-drinker (finding) [facility] Medical Equipment Procedure Code Equipment Code Equipment Origin al Text Equipment Identifier Dates Fusion, spine, lumbar, XLIF STRATOFUSE DBM [id number] FDA Start: 03-18-2022 Fusion, spine, lumbar, XLIF Bone-screw internal spinal fixation system, non-sterile [id number] FDA Start: 03-18-2022 Fusion, spine, lumbar, XLIF Orthopaedic bone screw, non-bioabsorbable, non-sterile [id number] FDA Start: 03-18-2022 Fusion, spine, lumbar, XLIF Orthopaedic instrument surgical connector [id number] FDA Start: 03-18-2022 Fusion, spine, lumbar, XLIF Bone-screw internal spinal fixation system, non-sterile [id number] FDA Start: 03-18-2022 Fusion, spine, lumbar, XLIF STRATOFUSE DBM [id number] FDA Start: 03-18-2022 Fusion, spine, lumbar, XLIF Spinal fusion graft kit [id number] FDA Start: 03-18-2022 Fusion, spine, lumbar, XLIF Metallic spinal fusion cage, non-sterile [id number] FDA Start: 03-18-2022 Fusion, spine, lumbar, XLIF Metallic spinal fusion cage, non-sterile [id number] FDA Start: 03-18-2022 Fusion, spine, lumbar, XLIF [...] DIRECTED UNDER THE SKIN TWO TIMES DAILY [id number] Start: 11-29-2022 1 each by Other route in the morning and 1 each at noon and 1 each in the evening and 1 each before bedtime. Take before meals. ONE TOUCH ULTRA STRIPS DX: [id number]. [id number] Start: 07-09-2023 Inject under the skin 2 (two) times a day. Use as instructed [id number] 2 (two) times a day. Use as instructed [id number] Goals Date Patient Goal Desired Activity /State Functional Status Date Assessment Result Facility 04-03-2022 Functional status Patient is Pro gressing Toward Baseline [facility] Work Phone: 03-22-2022 Functional status Patient is Pro gressing Toward Baseline [facility] Work Phone: 03-18-2022 Functional status Patient at Baseline [facility] Work Phone: 03-05-2022 Functional status Disability Sta tus Patient at Baseline [facility] Work Phone: Mental Status Date Assessment Result Facility 04-03-2022 Cognitive function Cognitive Sta tus Patient at Baseline [facility] Work Phone: 03-22-2022 Cognitive function Cognitive Sta tus Patient at Baseline [facility] Work Phone: 03-18-2022 Cognitive function Cognitive Sta tus Patient at Baseline [facility] Work Phone: Clinical Notes 09-25-2021 to 12-04-2023 Telephone Encounter - Trista Castaneda - 09/04/2023 2:53 PM EDTTelephone Encounter - Kasandra Weaver - 09/04/2023 2:53 PM EDTTelephone Encounter - Trista Castaneda - 09/04/2023 2:53 PM EDT Note Date & Type Note Facility 12-04-2023 Note [facility] Subjective Laura Lawson is a 73 y.o. year old female patient being seen for 1 mo follow up chronic systolic heart failure, CAD, hypertension, and pericardial effusion. Had echo a few weeks ago. Zetia was added at last apt by Patria San CNP. She has started cardiac rehab. C/o LE edema. Denies chest pain, SOB, palpitations, and lightheadedness/syncope. Patient Active Problem List Diagnosis Allergic rhinitis Angiomyolipoma of kidney Benign essential hypertension Cerebrovascular disease Chronic foot ulcer (CMS/HCC) Coronary atherosclerosis Decreased estrogen level Diabetic retinopathy associated with type 2 diabetes mellitus ([facility]/HCC) Diaphragmatic hernia Difficulty walking Dyspnea on exertion Generalized osteoarthritis Gout History of arthritis History of hysterectomy Hyperglycemia due to type 2 diabetes mellitus ([facility]/HCC) skilled nursing current use of insulin ([facility]/HCC) Low back pain Morbid obesity ([facility]/HCC) Neoplasm of uncertain behavior of kidney Obstructive sleep apnea syndrome Osteoarthritis of knee Osteoporosis Peripheral venous insufficiency Polyneuropathy due to type 2 diabetes mellitus ([facility]/HCC) Preoperative evaluation to rule out surgical contraindication Pulmonary function studies abnormal Pure hypercholesterolemia Renal mass Skin sensation disturbance Type 2 diabetes mellitus without complication ([facility]/HCC) Umbilical hernia Uric acid nephrolithiasis NSTEMI (non-ST elevated myocardial infarction) ([facility]/HCC) Acute exacerbation of CHF (congestive heart failure) ([facility]) COVID-19 Acquired spondylolisthesis Acute on chronic diastolic heart failure ([facility]/HCC) Coronary artery disease (CAD) excluded Diastolic dysfunction GERD (gastroesophageal reflux disease) History of carpal tunnel surgery of right wrist Hyperlipidemia Impaired mobility and endurance Localized edema Lumbar radiculopathy Morbid obesity with body mass index (BMI) of 45.0 to 49.9 in adult ([facility]) Paresthesia of skin Primary osteoarthritis of both knees S/P drug eluting coronary stent placement Ulcer of foot due to type 2 diabetes mellitus ([facility]/HCC) Pericardial effusion CAD in [place] artery Coronary artery disease Coronary artery disease involving [place] coronary artery of [place] heart with other form of angina pectoris ([facility]/HCC) Chronic systolic heart failure ([facility]/HCC) Combined forms of age-related cataract of both eyes History of lumbar fusion Nonexudative age-related macular degeneration Thyroid disease Family History Problem Relation Name Age of [...] She was discharged and is seen in follow-up. She eventually underwent high risk coronary intervention on 10/08/2023 with Impella assist. She did well with that. She reports that she has been doing reasonably well. She has been taking medications as prescribed. She denies active chest pain and she uses a walker to assist with ambulation and has no shortness of breath at the current level of activity. NYHA class I. She reports that she has been having worsening leg swelling. Recently Zetia was added due to LDL not being at target. Her blood pressure has been controlled at cardiac rehab. Her blood pressure is mildly elevated today. Review of Systems Cardiovascular: Positive for leg swelling. Negative for chest pain, dyspnea on exertion, irregular heartbeat, orthopnea, palpitations and syncope. Respiratory: Negative for cough and shortness of breath. Musculoskeletal: Negative for arthritis, falls and neck pain. Gastrointestinal: Negative for diarrhea and dysphagia. Neurological: Negative for light-headedness and loss of balance. Objective Visit Vitals BP 150/72 (BP Location: Left arm, Patient Position: Sitting) Pulse 63 Ht 1.575 m (5' 2 ) Wt 107 kg (235 lb) SpO2 98% BMI 42.98 kg/m??? OB Status Postmenopausal Smoking Status Never BSA 2.16 m??? Physical Exam Constitutional: Appearance: She is well-developed. She is obese. She is not ill-appearing. (more content not included)... [facility] 10-14-2023 Note Cardiovascular Medic [facility] SUBJECTIVE Chief Complaint Patient presents with [...] essential hypertension Cerebrovascular disease Chronic foot ulcer ([facility]) Coronary atherosclerosis Decreased estrogen level Diabetic retinopathy associated with type 2 diabetes mellitus ([facility]) Diaphragmatic hernia Difficulty walking Dyspnea on exertion Generalized osteoarthritis Gout History of arthritis History of hysterectomy Hyperglycemia due to type 2 diabetes mellitus ([facility]) skilled nursing current use of insulin ([facility]) Low back pain Morbid obesity ([facility]) Neoplasm of uncertain behavior of kidney Obstructive sleep apnea syndrome Osteoarthritis of knee Osteoporosis Peripheral venous insufficiency Polyneuropathy due to type 2 diabetes mellitus ([facility]) Preoperative evaluation to rule out surgical contraindication Pulmonary function studies abnormal Pure hypercholesterolemia Renal mass Skin sensation disturbance Type 2 diabetes mellitus without complication ([facility]) Umbilical hernia Uric acid nephrolithiasis NSTEMI (non-ST elevated myocardial infarction) ([facility]) Acute exacerbation of CHF (congestive heart failure) ([facility]) COVID-19 Acquired spondylolisthesis Acute on chronic diastolic heart failure ([facility]) Coronary artery disease (CAD) excluded Diastolic dysfunction GERD (gastroesophageal reflux disease) History of carpal tunnel surgery of right wrist Hyperlipidemia Impaired mobility and endurance Localized edema Lumbar radiculopathy Morbid obesity with body mass index (BMI) of 45.0 to 49.9 in adult ([facility]) Paresthesia of skin Primary osteoarthritis of both knees S/P drug eluting coronary stent placement Ulcer of foot due to type 2 diabetes mellitus ([facility]) Pericardial effusion CAD in [place] artery Coronary artery disease Coronary artery disease involving [place] coronary artery of [place] heart with other form of angina pectoris ([facility]) Chronic systolic heart failure ([facility]) Past Medical History: Diagnosis Date Abnormal ECG CHF (congestive heart failure) ([facility]) Coronary artery disease Diabetes mellitus ([facility]) Gout Hypertension Myocardial infarction ([facility]) Sleep apnea Family History Problem Relation Name [...] mg sublingual tablet, (more content not included)... [facility] 10-14-2023 Note Patient here for fol low up PCI with Dr. Zendejas on 10/08/2023. Says she's doing very well. Denies chest pain, SOB, and lightheadedness/syncope. Review of Systems Cardiovascular: Positive for leg swelling. Respiratory: Positive for cough. Musculoskeletal: Positive for muscle weakness. All other systems reviewed and are negative. [facility] 10-09-2023 Note 10/09/23 1032 Admission Assessment Questions [...] Discharge? Yes Does the patient have a case technician assigned to them through their insurance? No [...] to send link and activate MyChart? Yes [facility] 10-08-2023 Note Patient: Laura Lawson Procedure Information Date/Time: 10/08/23 0830 Procedures: Percutaneous coronary intervention - with Impella Impella insertion Atherectomy - coronary Location: [facility]ST[facility] 3 / [facility] ([facility]) Providers: Julito Zendejas MD [...] Plan discussed with attending. Additional Equipment Requests [facility] 09-26-2023 Note [facility] [place] [facility] Subjective Laura Lawson is a [...] (CMS/HCC) skilled nursing current use of insulin (CMS/HCC) Low back pain Morbid obesity ([facility]/HCC) Neoplasm of uncertain behavior of kidney Obstructive sleep apnea syndrome Osteoarthritis of knee Osteoporosis Peripheral venous insufficiency Polyneuropathy due to type 2 diabetes mellitus (CMS/HCC) Preoperative evaluation to rule out surgical contraindication Pulmonary function studies abnormal Pure hypercholesterolemia Renal mass Skin sensation disturbance Type 2 diabetes mellitus without complication (CMS/HCC) Umbilical hernia Uric acid nephrolithiasis NSTEMI (non-ST elevated myocardial infarction) ([facility]/HCC) Acute exacerbation of CHF (congestive heart failure) ([facility]/HCC) COVID-19 Acquired spondylolisthesis Acute on chronic diastolic heart failure ([facility]/HCC) Coronary artery disease (CAD) excluded Diastolic dysfunction GERD (gastroesophageal reflux disease) History of carpal tunnel surgery of right wrist Hyperlipidemia Impaired mobility and endurance Localized edema Lumbar radiculopathy Morbid obesity with body mass index (BMI) of 45.0 to 49.9 in adult (CMS/HCC) Paresthesia of skin Primary osteoarthritis of both knees S/P drug eluting coronary stent placement Ulcer of foot due to type 2 diabetes mellitus (CMS/HCC) Pericardial effusion Acute systolic heart failure ([facility]/HCC) CAD in [place] artery Family History Problem Relation Name Age [...] is alert and (more content not included)... [facility] 09-10-2023 Note Hospital Medicine Discharge Summary Final Discharge Diagnosis: Acute systolic heart failure (CMS/HCC) CAD Essential hypertension NIDDM2 Hyperlipidemia Morbid obesity Admission Diagnosis: Acute systolic heart failure (CMS/HCC) [I50.21] CAD in [place] artery [I25.10] Hospital course: Laura Lawson is an 72 y.o. female admitted from manager cardiac cath s/p left heart cath for evaluation for [...] placement with impella, however, due to one manager cardiac cath being down, they are going to reschedule for next week and she can go home in the meantime. Dear Dr. Arsenio MD, Laura is advised to follow up with you within 1-2 weeks. Follow-up with: Cardiology Scheduled appointments: Future Appointments Date Time Provider Department Center 09/26/2023 3:30 PM Julito Zendejas MD [facility] Your medication list START taking these [...] Medications These medications were sent to [facility] - [place], [place] - [address] [place] [address] [place] [address] [facility] [place] [address], [facility] [address] clopidogrel 75 mg tablet spironolactone 25 mg [...] rales or rhonch (more content not included)... [facility] 09-10-2023 Note 09/10/23 1111 Referral Data Referral Source community worker Referral Reason Information;Other (Comment) (Discharge Planning) [...] discharge home; no PT/OT orders in place. [facility] 09-10-2023 Note Attestation signed by Bhargav Wagner [...] currently stable and compensated based on her [facility] findings We will have close outpatient follow-up [...] 300 mg, 300 mg, oral, Daily, Joshua Segal MD aspirin EC tablet 81 mg, 81 mg, oral, Daily, Joshua Segal MD atorvastatin (Lipitor) tablet 80 mg, 80 mg, oral, Nightly, Joshua Segal MD, 80 mg at 09/09/232099 carvedilol (Coreg) tablet 6.25 mg, 6.25 mg, oral, BID, Joshua Segal MD, 6.25 mg at 09/09/232099 clopidogrel (Plavix) tablet 75 mg, 75 mg, oral, Daily, Анна Wilson MD dapagliflozin propanediol (Farxiga) tablet 10 mg, 10 mg, oral, Daily, Joshua Segal MD hydrALAZINE (Apresoline) tablet 100 mg, 100 mg, oral, TID, Joshua Segal MD, 100 mg at 09/09/232099 insulin lispro (HumaLOG) injection 0-10 Units, 0-10 Units, subcutaneous, TID with meals, 4 Units at 09/09/231730 AND insulin lispro (HumaLOG) injection 0-8 Units, 0-8 Units, subcutaneous, Nightly, Joshua Segal MD nitroglycerin (Nitrostat) SL tablet 0.4 mg, 0.4 mg, sublingual, q5 min PRN, Joshua Segal MD pantoprazole (ProtoNix) EC tablet 40 mg, 40 mg, oral, Daily, Joshua Segal MD potassium chloride CR (Klor-Con M10) ER tablet 10 mEq, 10 mEq, oral, Daily with breakfast, Joshua Segal MD sacubitril-valsartan (Entresto) 49-51 mg per tablet 1 tablet, 1 tablet, oral, BID, Joshua Segal MD, 1 tablet at 09/09/232099 spironolactone (Aldactone) tablet 25 mg, 25 mg, oral, Daily, Анна Wilson MD, 25 mg at 09/09/232099 torsemide (Demadex) tablet 20 mg, 20 mg, oral, Daily, Joshua Segal MD Objective: Patient Vitals for the past 24 hrs: BP Temp Temp src Pulse Resp SpO2 Height Weight 09/10/23 0529 -- 36.5 ???C (97.7 ???F) -- -- -- -- -- 102 kg (225 lb 12.8 oz) 09/10/23 0400 155/65 -- -- 56 12 -- -- -- 09/10/23 0015 170/76 -- -- 60 14 99 % -- -- 09/09/231999 -- 36.7 ???C (98 ???F) -- 67 [...] bilaterally. NEURO: No (more content not included)... [facility] 09-10-2023 Note Clinical Nutrition A ssessment Name: [...] had previous ed's (more content not included)... [facility] 09-10-2023 Note The patient is Moder ately Stable - Low risk of patient condition declining or worsening The patient's goals for the shift include get procedure done The clinical goals for the shift include VSS [facility] 09-09-2023 Note 09/09/23 1509 Admission Assessment Questions [...] Discharge? Yes Does the patient have a case technician assigned to them through their insurance? No Living Arrangement (Current/Prior to Hospitalization) Private residence;Home self care (lives w/friend. One story home w/4 entry stairs) Does the patient have history of HHC or SNF? Yes (HHC after back surgery - doesn't recall company) Assistive Device Grab bars;Other (Comment) (rollator, bipap machine (joiz), shower chair) Patient's goal for discharge home [...] to send link and activate MyChart? No [facility] 09-09-2023 Note Hospital Medicine History and Physical 09/09/2023 12:19 PM THE HOSPITALIST TEAM PREFERS TO USE [employer] CHAT FOR COMMUNICATION 7AM-7PM. IF I DO NOT RESPOND WITHIN 15 MINUTES, PLEASE PAGE ME/CALL THROUGH THE AERONAUTICAL DRAFTER. FROM 7PM-7AM, PLEASE PAGE [phone](COVR) Chief Complaint No chief complaint on file. History of Present Illness Laura Lawson is an 72 y.o. female admitted from manager cardiac cath s/p left heart cath for evaluation for [...] Problem List Diagnosis Date Noted CAD in [place] artery 09/09/2023 Pericardial effusion 08/05/2023 History of carpal tunnel surgery of right wrist 07/31/2023 Impaired mobility and endurance 07/31/2023 Morbid obesity with body mass index (BMI) of 45.0 to 49.9 in adult ([facility]) 07/31/2023 Acute on chronic diastolic heart failure ([facility]) 07/21/2023 Acute exacerbation of CHF (congestive heart failure) ([facility]) 07/03/2023 COVID-19 07/03/2023 NSTEMI (non-ST elevated myocardial infarction) ([facility]) 07/02/2023 Acquired spondylolisthesis 01/13/2023 Diastolic dysfunction 01/13/2023 Lumbar radiculopathy 01/13/2023 Paresthesia of skin 01/13/2023 Primary osteoarthritis of both knees 01/13/2023 S/P drug eluting coronary stent placement 01/13/2023 Localized edema 10/28/2022 Coronary artery disease (CAD) excluded 10/15/2022 GERD (gastroesophageal reflux disease) 10/15/2022 Hyperlipidemia 10/15/2022 Difficulty walking 04/24/2021 Pure hypercholesterolemia 09/20/2020 Osteoporosis 03/08/2020 Peripheral venous insufficiency 01/10/2020 Polyneuropathy due to type 2 diabetes mellitus ([facility] 01/10/2020 Chronic foot ulcer ([facility] 11/25/2019 Ulcer of foot due to type 2 diabetes mellitus ([facility] 11/25/2019 Skin sensation disturbance 11/05/2019 Decreased estrogen level 07/28/2019 Diabetic retinopathy associated with type 2 diabetes mellitus ([facility]) 10/30/2018 Dyspnea on exertion 08/04/2018 Osteoarthritis of knee 12/29/2017 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 [facility] 09-09-2023 Note Patient: Laura Lawson Procedure Information Date/Time: 09/09/23929 Procedure: Coronary angiography (Left) Location: [facility]ATION SYSTEM INSTALL[facility] 3 / [facility] (Cath) Providers: Julito Zendejas MD Clinical information reviewed: Allergies Meds OB Status Physical Exam Airway Mallampati: IV TM distance: <3 FB Neck ROM: full Cardiovascular Dental Pulmonary Abdominal Anesthesia Plan ASA 3 other (Subconscious sedation. ) Additional Equipment Requests [facility] 09-04-2023 Miscellaneous Notes First Attempt Made from [...] with Dr. Christopher on 12/15/23 11:00 at [facility]. She wanted to wait some months out due to Dr. Uribe saying it wasn't urgent for her to come in soon for the carpel tunnel. documented in this encounter [facility] 09-04-2023 Telephone encounter Note First Attempt Made [...] INSURANCE INFORMATION TO THEIR NEW PATIENT APPOINTMENT [facility] 09-04-2023 Telephone encounter Note Received call today 09/05/23 3:10 from patient in regard to previous message and she scheduled for new patient appt with Dr. Christopher on 12/15/23 11:00 at [facility]. She wanted to wait some months out due to Dr. Uribe saying it wasn't urgent for her to come in soon for the carpel tunnel. [facility] 08-19-2023 History of Present illness Narrative Reason for visit: HPI: Laura Lawson is a 72 y.o. female who presents for follow up for a questionable small right cerebellar stroke in June 2023. Patient was initially admitted for CHF exacerbation, NSTEMI in the midst of COVOR. Patient has prior medical history significant for [...] has since followed up with Cardiology at [facility]. Patient is present with friend today. [...] occlusions or narrowing, cardiology should consider a terminal gauger supervisor heart monitor such as a LOOP recorder. Followup with general neurology for h/o carpel tunnel and possible diabetic neuropathy. Will call patient in 6 months, if patient is doing well, no followup needed. Call for any questions/concerns. documented in this encounter [facility] 08-19-2023 Instructions Robbi Uribe MD - 08/19/2023 11:30 AM EDT Continue ASA daily Continue cholesterol medication Continue diabetic medication Continue BP medication Followup with cardiology as scheduled. Will clear patient for heart cath procedures and stents if needed. If heart cath shows no significant occlusions or narrowing, cardiology should consider a prison heart monitor such as a LOOP recorder. Followup with general neurology for h/o carpel tunnel and possible diabetic neuropathy. Will call patient in 6 months, if patient is doing well, no followup needed. Call for any questions/concerns. documented in this encounter [facility] 07-31-2023 Note Patient here for fol low [...] All other systems reviewed and are negative. [facility] 07-31-2023 Note Cardiovascular Medic [facility] SUBJECTIVE Chief Complaint Patient presents with Congestive Heart Failure Hypertension Laura Lawson is a 72 y.o. female here for hospital follow-up. HPI PMHx: resistant HTN, HFpEF, DM II, KJ She was recently admitted to [facility] for acute on chronic HFpEF, hypertensive [...] essential hypertension Cerebrovascular disease Chronic foot ulcer ([facility]/HCC) Coronary atherosclerosis Decreased estrogen level Diabetic retinopathy associated with type 2 diabetes mellitus ([facility]/HCC) Diaphragmatic hernia Difficulty walking Dyspnea on exertion Generalized osteoarthritis Gout History of arthritis History of hysterectomy Hyperglycemia due to type 2 diabetes mellitus ([facility]/HCC) 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 of 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 ([facility]) Low back pain Morbid obesity ([facility]) Neoplasm of uncertain behavior of kidney Obstructive sleep apnea syndrome Osteoarthritis of knee Osteoporosis Peripheral venous insufficiency Polyneuropathy due to type 2 diabetes mellitus ([facility]/HCC) Preoperative evaluation to rule out surgical contraindication Pulmonary function studies abnormal Pure hypercholesterolemia Renal mass Skin sensation disturbance Type 2 diabetes mellitus without complication ([facility]/HCC) Umbilical hernia Uric acid nephrolithiasis NSTEMI (non-ST elevated myocardial infarction) ([facility]/HCC) Acute exacerbation of CHF (congestive heart failure) ([facility]) COVID-19 Acquired spondylolisthesis Acute on chronic diastolic heart failure ([facility]) Coronary artery disease (CAD) excluded Diastolic dysfunction GERD (gastroesophageal reflux disease) History of carpal tunnel surgery of right wrist Hyperlipidemia Impaired mobility and endurance Localized edema Lumbar radiculopathy Morbid obesity with body mass index (BMI) of 45.0 to 49.9 in adult ([facility]) Paresthesia of skin Primary osteoarthritis of both knees S/P drug eluting coronary stent placement Ulcer of foot due to type 2 diabetes mellitus ([facility]) Pericardial effusion Past Medical History: Diagnosis Date Abnormal ECG CHF (congestive heart failure) ([facility]) Coronary artery disease Diabetes mellitus ([facility]) Gout Hypertension Myocardial infarction ([facility]) Sleep apnea Family History Problem Relation Name [...] mg by mout (more content not included)... [facility] 07-21-2023 History of Present illness Narrative Subjective Patient ID: Laura Lawson is a 72 y.o. female who presents for Follow-up (Admitted to [facility] 07/02/23 dx: Covid,CHF exac., NSTEMI discharged home 07/07/23 started on farxiga, coreg stopped labetolol pt had follow up appt with cardiology 07/16/23). Flowsheet Row Patient Outreach from 07/09/2023 in [facility] with Soledad Guerrero RN Discharge Information ED or Hospital Discharge? Hospital Patient has been contacted within two business days of discharge Yes Discharge Date 07/07/23 Discharge Hospital [facility] [D/C Acute on Chronic heart Failure, exacerbation [...] Comments labs, ecg, CXR. Pt transferred from [facility] to [facility], tested positive for covid, negative for covid x2 at [facility]. Pt to follow with Cardiology, appt on 07/16 at 2:20pm. Neurology 08/19/23 [facility] in [place]. Pt reports no shortness of breath. Using [...] monitor to be completed. Call End Time 331 Denies CP,dyspnea,syncope Current Outpatient Medications on File [...] bedtime BD Insulin Syringe U/F 31G X 16 1 ML misc USE DIRECTED UNDER THE [...] Procedure Laterality Date BI MAMMOGRAM DIAGNOSTIC BILATERAL 2013 CARPAL TUNNEL RELEASE CORONARY ANGIOPLASTY WITH STENT PLACEMENT 2013 CT ANGIO HEAD 07/04/2023 CT ANGIO HEAD 07/04/2023 CT ANGIOGRAM NECK 07/04/2023 CT ANGIOGRAM NECK 07/04/2023 EYE EXAM 2013 Disease:Diabetes mellitus, type 2 HERNIA REPAIR OR ARTHRD ANT INTERBODY MIN DSC LUMBAR 03/18/2022 [...] noted above. 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 documented in this encounter [facility] 07-16-2023 Note Cardiovascular Medic [facility] SUBJECTIVE Chief Complaint Patient presents with [...] Admission Diagnosis: NSTEMI (non-ST elevated myocardial infarction) ([facility]) [I21.4] HPI and Hospital course: Laura Lawson is an 72 y.o. female who came from [facility] with N-STEMI, acute CHF exacerbation, and covid positive. Patient has past medical history of CAD with 4 stents placed. Plavix stopped in August 2022. patient had elevated BNP and troponin. glucose 391. Patient endorses chronic SOB but reports worsening prior to arrival to [facility]. Denies cough. No heparin drip. patient was given Lasix 40 mg IV while at [facility]. Patient tested positive today for covid-19. Her [...] an inpatient. #COVID ? - positive at [facility] but negative x 2 at [facility] - Remdesivir was discontinued - on [...] (CMS/HCC) skilled nursing current use of insulin ([facility]/HCC) Low back pain Morbid obesity ([facility]/HCC) Neoplasm of uncertain behavior of kidney Obstructive [...] Acute exacerbation of CHF (congestive heart failure) ([facility]/HCC) COVID-19 Past Medical History: Diagnosis Date Abnormal ECG CHF (more content not included)... [facility] 07-16-2023 Note Patient here for [facility] for CHF and NSTEMI. She was discharged [...] All other systems reviewed and are negative. [facility] 07-08-2023 Miscellaneous Notes This patient needs outpatient follow up in [place] [facility] [place]), also she needs 30-day event monitor. (Being done through [place]) Called patient and vm is not set up. No answer Spoke with Latrice, patients roommate and transportation, and scheduled appt documented in this encounter [facility] 07-08-2023 Telephone encounter Note This patient needs outpatient follow up in the [facility] [place] 4-6 [place] ([place] hosp follow [place]), also she needs 30-day event monitor. (Being done through [place]) [facility] [employer] 07-08-2023 Telephone encounter Note Called patient and vm is not set up. No answer Spoke with Latrice, patients roommate and transportation, [facility] Hospital Medicine Discharge Summary Final [...] Admission Diagnosis: NSTEMI (non-ST elevated myocardial infarction) ([facility]) [I21.4] HPI and Hospital course: Laura Lawson is an 72 y.o. female who came from [facility] with N-STEMI, acute CHF exacerbation, and covid positive. Patient has past medical history of CAD with 4 stents placed. Plavix stopped in August 2022. patient had elevated BNP and troponin. glucose 391. Patient endorses chronic SOB but reports worsening prior to arrival to [facility]. Denies cough. No heparin drip. patient was given Lasix 40 mg IV while at [facility]. Patient tested positive today for covid-19. Her [...] an inpatient. #COVID ? - positive at [facility] but negative x 2 at [facility] - Remdesivir was discontinued - on room air #DMII insulin dependent - uncontrolled, HgbA1C 10.8 - patient was advised to have close follow-up with her PCP for further adjustment of her insulin regimen. Dear Dr. Arsenio MD, Laura is advised to follow up with you within 1-2 weeks. Follow-up with: Cardiology and Neurology Scheduled appointments: Future Appointments Date Time Provider Department Center 07/10/2023 3:00 PM HOLLEY Zamora [facility] Your medication list START taking these [...] Your Medications These medications were sent to [facility]/pharmacy #[id number] [address] [facility] [address] [address] carvedilol 6.25 mg tablet dapagliflozin propanediol 10 mg miconazole 2 % vaginal cream Laura has No Known Allergies. Dispositi (more content not included)... [facility] 07-07-2023 Note Attestation signed by Devon Montes De Oca MD at 07/08/2023 5:24 PM I, Devon Montes De Oca MD, personally performed the face to face [...] Clinical Asst. Professor Department of Neurology-Stroke Contact: ([facility]) Disclaimer: Portions of the record/note may have been created with voice recognition software. Occasional wrong-word or 'uzzgx-a-[id number]' substitutions may have occurred due to the [...] concerns please c (more content not included)... [facility] 07-06-2023 Note Hospital Medicine Daily Progress Note - 07/06/2023 11:13 AM; Room: [address] [place] [address] Admission: 07/02/2023 11:39 PM; Length of stay: 4 days THE HOSPITALIST TEAM PREFERS TO USE [employer] CHAT FOR COMMUNICATION 7AM-7PM. IF I DO NOT RESPOND WITHIN 15 MINUTES, PLEASE PAGE ME/CALL THROUGH THE AERONAUTICAL DRAFTER. FROM 7PM-7AM, PLEASE PAGE [phone](COVR) Code Status: Full Code Barriers to Discharge: [...] Principal Problem: NSTEMI (non-ST elevated myocardial infarction) ([facility]) Active Problems: Benign essential hypertension Coronary atherosclerosis Dyspnea on exertion Hyperglycemia due to type 2 diabetes mellitus ([facility]) Morbid obesity ([facility]) Obstructive sleep apnea syndrome Peripheral venous insufficiency Acute exacerbation of CHF (congestive heart failure) ([facility]) COVID-19 Assessment and Plan #Acute on chronic [...] echo results #COVID ? - positive at [facility] but negative x 2 at [facility] - will DC remdisivir - on [...] LDL 108 07/03/2023 No results found for: [id number] , IRON , TIBC , C3 , C4 , JEREMIAH , CANCA , ASO , PSA , CEA , CA125 , CA199 , AFP , CA153 Imaging MR brain wo contrast Narrative: 0MR BRAIN WO CONTRAST 07/04/2023 10:21 PM CLINICAL INDICATIONS: Stroke, focal neurological deficit PROTOCOL: Multiplanar multisequence MRI (more content not included)... [facility] 07-06-2023 Note Attestation signed by Elliott Clements [...] is completed. Patient will need 30 days manager monitoring after discharge. ENRIQUE CARPENTER MD Neurointervantional Fellow. [facility] 07-06-2023 Note Subjective F/U NSTEM I, COVID [...] Principal Problem: NSTEMI (non-ST elevated myocardial infarction) ([facility]) Active Problems: Benign essential hypertension Coronary atherosclerosis Dyspnea on exertion Hyperglycemia due to type 2 diabetes mellitus ([facility]) Morbid obesity ([facility]) Obstructive sleep apnea syndrome Peripheral venous insufficiency Acute exacerbation of CHF (congestive heart failure) ([facility]) COVID-19 NSTEMI, Likely type II in setting [...] please call for any concerns Dulce Garcia RESEARCH PROFESSIONAL Division of Cardiology, [facility]- [phone] Pager- [phone] Email- [email or web address] 07-05-2023 Note Speech Instructional Support Technician ology Speech Language Pathology Evaluation Patient Name: Laura Lawson : 1950 Today's Date: 07/05/2023 Date of Evaluation: 07/05/2023 General Subjective: Laura Lawson is an 72 y.o. 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 female who came from [facility] with N-STEMI, acute CHF exacerbation, and [...] Primary Mode of Expression: Verbal Primary Language: Icelandic Repetition: Intact Sentence Completion: Intact Open Ended Questions: Intact Conversation: Intact Higher Level Cognitive Functions Higher Level Cognitive Functions Attention: Within Functional Limits Memory: Unable to assess (Unable to assess, due to pt hearing status.) Problem Solving: Within Functional Limits Insight: Within function limits Impulsive: Within functional limits Processing Speed: Within funtional limits Perseveration: Not present Assessment/Plan STEAM AND POWER SUPERINTENDENT Assessment Medical Staff Made Aware: Yes Plan STEAM AND POWER SUPERINTENDENT - OK to Discharge: Yes Written/Dictated by Gertrudis Marshall CCC-STEAM AND POWER SUPERINTENDENT at 1:15 PM [facility] 07-05-2023 Note Hospital Medicine Daily Progress Note - 07/05/2023 12:18 PM; Room: [address] [place] [address] Admission: 07/02/2023 11:39 PM; Length of stay: 3 days THE HOSPITALIST TEAM PREFERS TO USE [employer] CHAT FOR COMMUNICATION 7AM-7PM. IF I DO NOT RESPOND WITHIN 15 MINUTES, PLEASE PAGE ME/CALL THROUGH THE AERONAUTICAL DRAFTER. FROM 7PM-7AM, PLEASE PAGE [phone](COVR) Code Status: Full Code Barriers to Discharge: [...] Principal Problem: NSTEMI (non-ST elevated myocardial infarction) ([facility]) Active Problems: Benign essential hypertension Coronary atherosclerosis Dyspnea on exertion Hyperglycemia due to type 2 diabetes mellitus ([facility]/HCC) Morbid obesity ([facility]) Obstructive sleep apnea syndrome Peripheral venous insufficiency Acute exacerbation of CHF (congestive heart failure) ([facility]) COVID-19 Assessment and Plan #Acute on chronic [...] stroke team. #COVID ? - positive at [facility] but negative x 2 at [facility] - will DC remdisivir - on [...] LDL 108 07/03/2023 No results found for: [id number] , IRON , TIBC , C3 , [...] Subtle T2 FLAIR (more content not included)... [facility] 07-05-2023 Note Physical Therapy Physical Therapy Evaluation [...] acute heart failure exacerbation and COVID-positive at [facility]. 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 (CMS/HCC) Low back pain Morbid obesity (CMS/HCC) Neoplasm of uncertain behavior of kidney Obstructive sleep apnea syndrome Osteoarthritis of knee Osteoporosis Peripheral venous insufficiency Polyneuropathy due to type 2 diabetes mellitus ([facility]) Preoperative evaluation to rule out surgical contraindication Pulmonary function studies abnormal Pure hypercholesterolemia Renal mass Skin sensation disturbance Type 2 diabetes mellitus without complication ([facility]) Umbilical hernia Uric acid nephrolithiasis NSTEMI (non-ST elevated myocardial infarction) ([facility]) Acute exacerbation of CHF (congestive heart failure) ([facility]) COVID-19 Past Medical History: Diagnosis Date Coronary artery disease Diabetes mellitus ([facility]) Gout Hypertension Sleep apnea Past Surgical History: [...] Level of Function Prior Function Level of [place]: Independent with ADLs and functional transfers, Independent [...] tile Device 1: (more content not included)... [facility] 07-04-2023 Note Speech Instructional Support Technician ology Speech/Language Pathology Clinical Swallow Assessment Recommendations Regular diet with thin liquids Hips at 90 degrees for all PO intake STEAM AND POWER SUPERINTENDENT to follow for speech and language eval due to new onset aphasia this morning History of Present Illness 72 year old female admitted 07/02 as a transfer from [facility] after being found to have NSTEMI, acute heart failure exacerbation and COVID positive. Patient has past medical history of CAD with 4 stents placed. Baseline Assessment Temperature Spikes Noted: Not applicable Respiratory Status: Room air History of Intubation: No Behavior/Cognition: Alert, Cooperative, Pleasant mood, Requires cueing Dentition: Adequate Vision: Functional for self-feeding Patient Positioning: Upright in chair Baseline Vocal Quality: [facility] Labial [facility] and strength appeared WNL. Lingual ROM slightly reduced on left. Required max cues to complete oral motor tasks may be due to pt CADDO. Laryngeal Function Vocal Quality: Within Functional Limits [...] Follow up for speech and language evaluation [facility] 07-04-2023 Note Hospital Medicine Daily Progress Note - 07/04/2023 9:31 AM; Room: [address] [place] [address] Admission: 07/02/2023 11:39 PM; Length of stay: 2 days THE HOSPITALIST TEAM PREFERS TO USE [employer] CHAT FOR COMMUNICATION 7AM-7PM. IF I DO NOT RESPOND WITHIN 15 MINUTES, PLEASE PAGE ME/CALL THROUGH THE AERONAUTICAL DRAFTER. FROM 7PM-7AM, PLEASE PAGE [phone](COVR) Code Status: Full Code Barriers to Discharge: [...] Principal Problem: NSTEMI (non-ST elevated myocardial infarction) ([facility]/HCC) Active Problems: Benign essential hypertension Coronary atherosclerosis Dyspnea on exertion Hyperglycemia due to type 2 diabetes mellitus ([facility]/HCC) Morbid obesity ([facility]/HCC) Obstructive sleep apnea syndrome Peripheral venous insufficiency Acute exacerbation of CHF (congestive heart failure) (CMS/HCC) COVID-19 Assessment and Plan NSTEMI, Likely type [...] on 07/04 COVID ? - positive at [facility] but negative x 2 at [facility] - will DC remdisivir - on [...] LDL 108 07/03/2023 No results found for: [id number] , IRON , TIBC , C3 , [...] 07/03/2023 9:02:17 AM (more content not included)... [facility] 07-03-2023 Note 07/03/23 1229 Admission Assessment Questions [...] Discharge? Yes Does the patient have a case technician assigned to them through their insurance? No [...] to send link and activate MyChart? No [facility] 07-03-2023 Note Clinical Nutrition A ssessment Name: [...] with questions and contact the dietitian via [employer] chat 8A-4P Friday-Friday. Or call the dietitian's office at extension [phone]. For s/holidays, the dietitian's can be reached by paging [phone] from 9A-3P. Unable to be reached via [email or web address] chat on Friday & .) [facility] 07-03-2023 Note Pharmacy Dosing Serv ice - [...] you, Parish Fernandez, PharmD, MS, BCPS 07/03/2023 [facility] 07-03-2023 Note Hospital Medicine History and Physical 07/03/2023 12:01 AM THE HOSPITALIST TEAM PREFERS TO USE [employer] FOR COMMUNICATION 7AM-7PM. IF I DO NOT RESPOND WITHIN 15 MINUTES, PLEASE PAGE ME/CALL THROUGH THE AERONAUTICAL DRAFTER. FROM 7PM-7AM, PLEASE PAGE [phone](COVR) Chief Complaint Patient transfer/direct admit from [facility] to [facility] for NSTEMI, CHF Exacerbation, and COVID-19 + History of Present Illness Laura Lawson is an 72 y.o. female who came from [facility] with N-STEMI, acute CHF exacerbation, and covid positive. Patient has past medical history of CAD with 4 stents placed. Plavix stopped in August 2022. Troponin 180--> 179. BNP 19,000. Glucose 391Patient endorses chronic SOB but reports worsening prior to arrival to [facility]. Denies cough. No heparin drip. Was given Lasix 40 mg IV while at [facility]. Patient tested positive today for covid-19. Her chest X-ray shows decreased lung volume w/ moderate elevation of left hemidiaphragm, compression atelectasis associated w/ the left hemidiaphragm. Patchy densitied w/in left perihilar region noted and are suggestive of atelectasis and or infiltrate. Peribronchial cuffing w/in both hilar regions observed and may be associated with bronchitis. Per [facility], patient SpO2 was good, just feels like she isn't getting enough air into her lungs . Chest X-ray showed cardiomegaly with vascular congestion and bilateral effusions. EKG sinus rhythm, first degree AV block, anterolateral myocardial infarction, probably recent. Possible right ventricular hypertrophy. Meds given in [facility]: nitroglycerin 0.4 mg SL X2, ASA [...] Date Noted NSTEMI (non-ST elevated myocardial infarction) ([facility]) 07/02/2023 Difficulty walking 04/24/2021 Pure hypercholesterolemia 09/20/2020 Osteoporosis 03/08/2020 Peripheral venous insufficiency 01/10/2020 Polyneuropathy due to type 2 diabetes mellitus ([facility]) 01/10/2020 Chronic foot ulcer ([facility]) 11/25/2019 Skin sensation disturbance 11/05/2019 Decreased estrogen level 07/28/2019 Diabetic retinopathy associated with type 2 diabetes mellitus ([facility]) 10/31/19 (more content not included)... [facility] 03-13-2023 Evaluation note Encounter Date Diagnosis Assessment [...] of view she is done very well. [facility] Other [id number] NoteHypertension is controlled currently 136/67 Renal function stable from labs 05/2022, K+ normal Continue candesartan, hydralazine, labetolol, [facility]sem[facility]Un[facility]09-[facility]-2023 NoteContinue torsemide F/U with PCP Continue to wear compression to BLEUnMartins Ferry Hospital09-20-2023 NoteContinue lipitor Script completed for lipid level- last lipids noted in chart is from 2020 Reviewed labs 05/2022 and liver function [facility] normal[facility] NoteCoronary artery disease is stable Continue GDMT- ASA, lipitor, labetolol continue risk factor modifications- heart healthy diet, regular exercise as tolerated and continue all medications. 136/67- 57UnMartins Ferry [facility]09-20-2023 NoteUTP CARDIOLOGY PROGRESS NOTE HPI: Laura [...] exercise as tolerated and continue all medications. 136/- 57 Pure hypercholesterolemia Continue lipitor Script completed for lipid level- last lipids noted in chart is from 2020 Reviewed labs 05/2022 and liver function was normal Peripheral venous insufficiency Continue torsemide F/U with PCP Continue to wear compression to BLE Benign essential hypertension Hypertension is controlled currently 136/67 Renal function stable from labs 05/2022, K+ normal Continue candesartan, hydralazine, labetolol, torsemide RTC [facility] Evaluation note* Encounter Date Diagnosis Assessment Notes [...] back in 6 months with another x-ray. [facility] Other 01-05-2023 Evaluation note* Encounter Date Diagnosis [...] Jun, Spondylolisthesis, lumbar region (ICD-10 - M43.16) [facility] Other 11-10-2022 Evaluation note* Encounter Date Diagnosis [...] Apr, Spondylolisthesis, lumbar region (ICD-10 - M43.16) [facility] Other 10-14-2022 Progress note Author Abner Roa [facility] March 22, 2022 6:34am Note Date/Time March 22, 2022 6 :34am [facility] [address] [place] [address] Neurosurgery Progress Note Signed Patient: Laura Lawson MR#: [id number] : 1950 Acct:[id number] Age/Sex: 71 / F Adm Date: 2 Loc: 4N Room: 0O5201-1 Type: ADM IN Attending Dr: Abner Roa [...] By: <Electronically signed by MD Abner Roa> 03/22/2234 [facility] Work Phone: 1(339) 929-837710-13-2022 Progress note Author Abner Roa [facility] March 21, 2022 7:43am Note Date/Time March 21, 2022 7 :43am [facility] [address] [place] [address] Neurosurgery Progress Note Signed Patient: Laura Lawson MR#: [id number] : 1950 Acct:[id number] Age/Sex: 71 / F Adm Date: 2 Loc: 4N Room: [address] [place] [address] Type: ADM IN Attending Dr: Abner Roa [...] By: <Electronically signed by MD Abner Roa> 03/21/22 0743 [facility] Work Phone: 1(658) 774-172410-12-2022 Progress note Author Abner Roa [facility] March 20, 2022 10:22am Note Date/Time March 20, 2022 1 0:22am [facility] [address] [place] [address] Neurosurgery Progress Note Signed Patient: Laura Lawson MR#: [id number] : 1950 Acct:[id number] Age/Sex: 71 / F Adm Date: 2 Loc: 4N Room: [address] [place] [address] Type: ADM IN Attending Dr: Abner Roa [...] Glucose 245, POC Glucose Comment Will notify dr/recovery rn/Plan Assessment/Plan (1) Lumbar stenosis with neurogenic claudication: [...] with neurogenic claudication Status: Acute Documented By: Abnre Roa MD 03/20/221020 Signed By: <Electronically signed by MD Abner Roa> 03/20/22 [facility] Work Phone: 1(136) 230-627810-11-2022 Progress note Author Abner Roa [facility] March 19, 2022 7:33am Note Date/Time March 19, 2022 7 :33am [facility] [address] [place] [address] Neurosurgery Progress Note Signed Patient: Laura Lawson MR#: [id number] : 1950 Acct:[id number] Age/Sex: 71 / F Adm Date: 2 Loc: 4N Room: [address] [place] [address] Type: ADM IN Attending Dr: Abner Roa [...] signed by MD Abner Roa> 03/19/22 0733 [facility] Work Phone: 1(266) 163-586308-09-2022 Evaluation note* Encounter Date Diagnosis Assessment Notes [...] stenosis with neurogenic claudication (ICD-10 - M48.062) [facility] Other 07-01-2022 Evaluation note* Encounter Date Diagnosis [...] - G89.29) Continue with current treatment plan [facility] Other 06-30-2022 Evaluation note* Encounter Date Diagnosis [...] Asymptomatic age-related postmenopausal state (ICD-10 - Z78.0) [facility] Other 06-02-2022 Evaluation note* Encounter Date Diagnosis [...] - G89.29) Continue with current treatment plan [facility] Other 05-18-2022 Evaluation note* Encounter Date Diagnosis [...] - G89.29) Continue with current treatment plan [facility] Other 05-09-2022 Evaluation note* Encounter Date Diagnosis [...] greater trochanteric bursa injection in the future. [facility] Other 04-19-2022 Evaluation note* Encounter Date Diagnosis [...] negative findings were considered in medical decision-making. [facility] Other Evaluation noteNo InformationNort Astrapi Other Evaluation noteNo assessment information available [facility] Work Phone: Evaluation note* Diagnosis Onset Date Resolution Status Lumbar stenosis with neurogenic claudication acute [facility] Work Phone: Evaluation note* Diagnosis Onset Date Resolution Status Lumbar stenosis with neurogenic claudication acute CAD (coronary artery disease) acute Diabetes mellitus, type 2 ac [place] Hyperlipidemia acute Hypertension acute Impaired mobility and endurance acute Lumbar stenosis with neurogenic claudication acute Morbid obesity with body mas s index (BMI) of 45.0 to 49.9 in adult acute Myocardial infarction acute Sleep apnea with use of noct urnal bilevel positive airway pressure (BPAP) acute [facility] Work Phone: Evaluation note* Diagnosis COVID- Primary NSTEMI (non-ST elevated myocardial infarction) ([facility]) Acute myocardial infarction, subendocardial infarction, episode of care unspecified Acute on chronic diastolic heart failure ([facility]) Acute on chronic diastolic heart failure Type 2 diabetes mellitus with hyperglycemia, with long-term current use of insulin ([facility]) 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) Morbid (severe) obesity due to excess calories (E66.01) Body mass index [BMI] 45.0-49.9, adult (Z68.42) Atherosclerosis of [place] coronary artery [place] heart with angina pectoris ([facility]) documented in this encounter [facility] HealthcareEvaluation note* Diagnosis TIA (transient ischemic attack)- Primary Unspecified transient cerebral ischemia Bilateral carpal tunnel syndrome Carpal tunnel syndrome [facility]* Diagnosis Onset Date Resolution Status History of lumbar fusion acu te Spondylolisthesis, lumbar region acute [facility] Work Phone: History general Narrative - Reported* Type Description Date Medical History diabetes Medical History obstructive sleep apnea Surgical History total hysterectomy Surgical History hernia repair Surgical History neck mass removal [facility] Other History general Narrative - Reported* Type Description Date Medical History diabetes Medical History obstructive sleep apnea Surgical History total hysterectomy Surgical History hernia repair Surgical History neck mass removal Hospitalization History See Above [facility] Other Hospital Discharge instructions Additional Instructions DISCHARGE [...] for back spasm 20 minutes [facility] 1[facility] Work Phone: InstructionsNot on filedocumented in this encounter [facility] HospitalCellityInstructionsNot on filedocumented in this encounter [facility] HospitalCareSimply [facility] for referral (narrative)* Consultation (Routine) - Pending Review Specialty Diagnoses / Procedures Referred By Raul zamora Referred To Contact Neurology Diagnoses Bilateral carpal tunnel syndrome Robbi Uribe MD [address] [place] [address], [address] [place] [address] Casye Christopher MD [address] [place] [address], [address] [place] [address] Referral ID Status Reason Start Date Expiration Date Visits Requested Visits Authorized [id number] Pending Review Specialty Services Required 08/19/2023 08/18/2024 1 1 [email or web address] [facility] for visit NarrativeNeurosurgery Referral Update [facility] Other Summary Purpose Family History No Family [...] Date/ Time Advance Directives No December 11 9:57am Reason for Referral Reason leg strengthening, g ait training, balance Diagnosis 1 Spondylolisthesis, l umbar region (M43.16) Referral Organization [facility] Ne urosurgery Referring Provider First Name Abner Referring Provider Last Name Janina Referring Provider Specialty Neurologica l Surgery Referred Organization [facility] Referred Address ,[place], [place],[address] Referred Provider Specialty Physical The rapist Referral Priority Routine Reason Evaluate and Treat O utPatient PT in [place] for Gait Training and Leg Strengthening Diagnosis 1 Lumbar radiculopathy (M54.16) Referral Organization [facility] Ne urosurgery Referring Provider First Name Abenr Referring Provider Last Name Janina Referring Provider Specialty Neurologica l Surgery Referred Organization [facility] Referred Address [address] [place], [place],[address] Referred Provider Specialty Physical The rapist Referral Priority Routine Reason eval and treat Diagnosis 1 Lumbar radiculopathy (M54.16) Referral Organization [facility] Pain Managemen t Referring Provider First Name Devang Referring Provider Last Name Keri Referring Provider Specialty Pain Medici ne Referred Organization [facility] Last anthony Co Referred Provider Vlad Georges Referred Address [address] [facility],[place], [place],[id number] Referred Provider Specialty Neurosurgery Referral Priority Routine [...] section and content) DATE CREATED AUTHOR 08/19/2018 [facility] DATE CREATED AUTHOR AUTHOR'S ORGANIZ ATION 03/17/2020 [facility] DATE CREATED AUTHOR AUTHOR'S ORGANIZ ATION 11/19/2022 [facility] DATE CREATED AUTHOR AUTHOR'S ORGANIZ ATION 08/20/2023 [facility] DATE CREATED AUTHOR AUTHOR'S ORGANIZ ATION 10/25/2023 [facility] DATE CREATED AUTHOR AUTHOR'S ORGANIZ ATION 11/25/2023 [facility] EPIC DATE CREATED AUTHOR AUTHOR'S ORGANIZ ATION 12/05/2023 [facility] REASON FOR VISIT (unrecogniz ed section and content) Reason Comments Follow-up Admitted to [facility] 06/10 09/30 dx: Covid,CHF exac., NSTEMI discharged home 07/07/23 started on farxiga, coreg stopped labetolol pt had follow up appt with cardiology 07/16/23 Reason Onset Date Comments NEW PATIENT REFERRAL 09/04/2023 Care Teams (unrecognized sec tion and content) Team Status: Inactive Member Role Status Dates Abner Roa MD Attending Provider Active Vlad Cesar II MD Primary Care Provider Active Team Status: Active Member Role Status Dates Vlad Cesar II MD Primary Care Provider Active Team Status: Inactive Member Role Status Dates Vlad Cesar II MD Primary Care Provider Active Abner Roa MD Attending Provider Active Team Status: Inactive Member Role Status Dates Vlad Cesar II MD Primary Care Provider Active Abner Roa MD Admit Provider, Attending Provider A ctive Team Status: Inactive Member Role Status Dates Vlad Cesar II MD Primary Care Provider Active Chidi Bowen MD Admit Provider, Attending Provider A ctive Louann Mancilla , KENDALL Other Provider Active Janice Linares , K[place] Other Provider Active Jessica Benson , [place] Other Provider Active Arcelia Borges , [place] Other Provider Active Sherry Luong , [place] Other Provider Active Nanci Gardner , [place] Other Provider Active Meliton Schwartz MD Other Provider Active Fred Nash MD Other Provider Active Mirtha Serrano APRN Other Provider Active Yesi Dickens , DO [...] MD Other Provider Active Latonia Ely , RESEARCH PROFESSIONAL-C Other Provider Active Roman Rosales MD Other Provider Active Riccardo Jenkins MD Other Provider Active Edie Granados MD Other Provider Active Eddy Luu MD Other Provider Active Laine Swan , DO Other Provider Active Ruperto Trejo MD Other Provider Active Edwardo Ramirez , DO Other Provider Active Ziggy Vernon , DO Other Provider Active Tressa Degroot APRN Other Provider Active Noam Albarado , DO Other Provider Active Jacobo Montes MD Other Provider Active Fariha Flowers , KENDALL Other Provider Active Team Status: Active Member Role Status Dates Vlad Cesar II MD Primary Care Provider Active Abner Roa MD Attending Provider Active 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 [employer] provides no warranty or guarantee of the accuracy or completeness of information in this document.
[2023-12-13 10:47] LABS: Bilirubin Urine NEGATIVE (NEGATIVE); Blood Urine NEGATIVE (NEGATIVE); Clarity Urine CLEAR (CLEAR); Color Urine LT. YELLOW (YELLOW); Glucose Urine UA >=1000 mg/dL (NEGATIVE); Ketones Urine NEGATIVE (NEGATIVE); Leukocyte Esterase Urine NEGATIVE (NEGATIVE); Nitrite Urine NEGATIVE (NEGATIVE); Protein Urine TRACE mg/dL (NEG/TRACE); Urobilinogen Urine 0.2 EU/dL (0.2-1.0)
[2023-12-13 10:48] LABS: Urine Microscopic Indicated NO
--- NOTE | 2023-12-13 11:01 | ED_ITS ---
HPI - Female Genitourinary General Chief complaint: Urogenital-Female Stated complaint: FLANK PAIN Time Seen by Provider: 12/13/23 10:09 Source: patient Mode of arrival: walk-in Limitations: no limitations History of Present Illness HPI Narrative: The patient presenting to us with 2 main issues the first 1 is that she has been having this low back pain for the last at least 2 weeks with the pain patch is causing her to have irritation to the skin, she mentioned that the pain is mostly related to her standing up or moving not at rest. No nausea no vomiting no radiation Patient also noted over the last 2 to 3 days that she is having some vaginal irritation. She mentioned that there is burning when she urinates but there is no frequency no fever no other The patient did try some Monistat she mentioned that she have a history of leaking urine as she cannot control going to the bathroom sometimes on time Related Data Home Medications ?Medication ?Instructions ?Recorded ?Confirmed allopurinol 300 mg tablet 300 mg PO Q24H 07/02/23 07/02/23 aspirin 81 mg tablet,delayed 81 mg PO DAILY 07/02/23 07/02/23 release (Adult Aspirin Regimen) atorvastatin 40 mg tablet 40 mg PO Q24H 07/02/23 07/02/23 baclofen 10 mg tablet 10 mg PO Q24H 07/02/23 07/02/23 calcium citrate 315 mg-vitamin D3 1 tab PO BID 07/02/23 07/02/23 5 mcg (200 unit) tablet candesartan 32 mg tablet 32 mg PO DAILY 07/02/23 07/02/23 dulaglutide 1.5 mg/0.5 mL 1.5 mg subcut PRN 07/02/23 07/02/23 subcutaneous pen injector (Trulicity) hydralazine 100 mg tablet 100 mg PO Q8H 07/02/23 07/02/23 insulin glargine U-300 conc 300 30 unit subcut Q24H 07/02/23 07/02/23 unit/mL (3 mL) subcutaneous pen (Toujeo Max U-300 SoloStar) insulin lispro 100 unit/mL 1 sliding scale dose subcut PRN 07/02/23 07/02/23 subcutaneous solution (Humalog U-100 Insulin) labetalol 300 mg tablet 300 mg PO Q12H 07/02/23 07/02/23 meloxicam 15 mg tablet 15 mg PO Q24H 07/02/23 07/02/23 omeprazole 40 mg capsule,delayed 40 mg PO Q24H 07/02/23 07/02/23 release potassium chloride 20 mEq 20 meq PO BID 07/02/23 07/02/23 tablet,extended release (K-Tab) torsemide 20 mg tablet 20 mg PO Q12H 07/02/23 07/02/23 Previous Rx's ?Medication ?Instructions ?Recorded clotrimazole 2 % vaginal cream 1 appful vaginal .qhs #21 grams 12/13/23 (Gyne-Lotrimin) hydrocortisone 0.5 % topical 1 applic topical DAILY PRN rash 12/13/23 ointment #56 grams nystatin 100,000 unit/gram topical 1 applic topical BID #30 grams 12/13/23 powder Allergies Allergy/AdvReac Type Severity Reaction Status Date / Time No Known Drug Allergies Allergy Verified 07/02/23 11:53 Review of Systems ROS Status of ROS 10 or more systems reviewed and unremark able except as noted in history and below Exam Narrative Exam Narrative: Nurses notes and vital signs reviewed and patient is not hypoxic. General: Well-appearing and in no apparent distress. Skin: Warm, dry, no pallor noted. No rash. Head: Normocephalic, atraumatic. Neck: Supple, non-tender. Eye: Pupils are equal, round and EOMI. No scleral icterus. Ears, Nose, Mouth, and Throat: TM are clear, no nasal mucosal hypertrophy. Oral mucosa is moist, no posterior oropharynx erythema, uvula is mid-line Cardiovascular: Regular Rate and Rhythm without murmur, gallop or rub. Respiratory: No accessory muscle use or respiratory distress. Lungs are clear to auscultation, no wheezing, rales or rhonchi Chest Wall: no tenderness Back: No midline thoracic or lumbar vertebral tenderness. No CVA tenderness the patient have a more toward the buttock area tenderness and iliac area and the patient have 2 rectangular rashes that is mostly secondary to contact dermatitis Musculoskeletal: normal ROM, no calf or popliteal tenderness, no lower extremity edema/swelling GI: Abdomen is soft, non-distended. Normal bowel sounds. No masses appreciated. No tenderness to palpation. No rebound, guarding, or rigidity noted. Neurological: A&O x4. No cranial nerve dysfunction observed. No truncal ataxia. Moves all extremities. Sensation intact. Psychiatric: Cooperative and interactive. Normal mood and affect. The patient perineal examination showed that she have skin irritation and whitish discharge mostly Mariam infection Constitutional Vital Signs, click to edit/add: Last Vital Signs Temp 98.7 F 12/13/23 10:10 Pulse 60 12/13/23 10:10 Resp 18 12/13/23 10:10 BP 158/66 H 12/13/23 10:10 Pulse Ox 96 12/13/23 10:10 O2 Del Method Room Air 12/13/23 10:10 Course Vital Signs Vital signs: Vital Signs Temperature 98.7 F 12/13/23 10:10 Pulse Rate 60 12/13/23 10:10 Respiratory Rate 18 12/13/23 10:10 Blood Pressure 158/66 H 12/13/23 10:10 Pulse Oximetry 96 12/13/23 10:10 Oxygen Delivery Method Room Air 12/13/23 10:10 Temperature 98.7 F 12/13/23 10:10 Pulse Rate 60 12/13/23 10:10 Respiratory Rate 18 12/13/23 10:10 Blood Pressure 158/66 H 12/13/23 10:10 Pulse Oximetry 96 12/13/23 10:10 Oxygen Delivery Method Room Air 12/13/23 10:10 MDM - Female Genitourinary MDM Narrative Medical decision making narrative: CBC chemistry showed no acute pathology and the patient urinalysis showed no UTI Right now the patient will be treated with local cream for low-dose hydro cortisone cream as local dermatitis mostly secondary to the skin patches and she is not to the same patches again Nystatin to be used as a powder twice a day in addition to vaginal clotrimazole cream Right now the patient was instructed about the importance of keeping the area clean and dry The patient also was instructed that her back pain mostly secondary to muscle pain as the area that she was pointing to was far away from her kidney as she was concerned about kidney reason for her pain, but it was noted that the pain is only there whenever she is moving and on certain position when she stands up. The patient to continue supportive care with Tylenol for pain The patient is to follow up with primary care physician in next 2-3 days or to return to the emergency department should any of the signs or symptoms worsen or new symptoms develop. The patient agrees with the following Diagnosis and Treatment plan and the patient will be discharged home. Lab Data Labs: Lab Results 12/13/23 12/13/23 Range/Units 10:35 10:54 WBC 7.7 (4.0-11.0) 10^3/uL RBC 4.44 (4.20-5.40) 10^6/uL Hgb 12.6 (12.0-16.0) g/dL Hct 40.4 (36.0-48.0) % MCV 91.0 (81.0-99.0) fL MCH 28.4 (26.7-34.0) pg MCHC 31.2 (29.9-35.2) g/dL RDW 13.4 (11.0-15.0) % Plt Count 318 (150-450) 10^3/uL MPV 8.9 L (9.5-13.5) fL Neut % (Auto) 60.6 (43.0-75.0) % Lymph % (Auto) 19.4 L (20.5-60.0) % [place] % (Auto) 11.9 (1.7-12.0) % Eos % (Auto) 7.0 (0.9-7.0) % Baso % (Auto) 1.0 (0.2-2.0) % Neut # (Auto) 4.7 (1.4-6.5) 10^3/uL Lymph # (Auto) 1.5 (1.2-3.8) 10^3/uL [place] # (Auto) 0.9 H (0.3-0.8) 10^3/uL Eos # (Auto) 0.5 (0.0-0.7) 10^3/uL Baso # (Auto) 0.1 (0.0-0.1) 10^3/uL Abs Immat Gran (auto) 0.01 (0.00-0.03) 10^3/uL Imm/Tot Granulo (auto) 0.1 (0.0-0.5) % Sodium 136 (136-145) mmol/L Potassium 3.9 (3.5-5.1) mmol/L Chloride 100 (98-107) mmol/L Carbon Dioxide 28.7 (21.0-32.0) mmol/L Anion Gap 11.2 BUN 31.0 H (7.0-18.0) mg/dL Creatinine 1.00 (0.55-1.02) mg/dL Est GFR ( Amer) >60 (>=60) Est GFR (Non-Af Amer) 55 L (>=60) BUN/Creatinine Ratio 31.0 Glucose 310 H (74-106) mg/dL Calcium 10.0 (8.5-10.1) mg/dL Total Bilirubin 0.5 (0.2-1.0) mg/dL AST 14 L (15-37) U/L ALT 23 (14-59) U/L Alkaline Phosphatase 123 H (46-116) U/L Total Protein 7.3 (6.4-8.2) g/dL Albumin 3.5 (3.4-5.0) g/dL Globulin 3.8 g/dL Albumin/Globulin Ratio 0.9 Urine Color Lt. yellow (YELLOW) Urine Clarity Clear (CLEAR) Urine pH 6.0 (5.0-9.0) Ur Specific [place] 1.010 (1.005-1.025) Urine Protein Trace (NEG/TRACE) mg/dL Urine Glucose (UA) >=1000 A (NEGATIVE) mg/dL Urine Ketones Negative (NEGATIVE) mg/dL Urine Occult Blood Negative (NEGATIVE) Urine Nitrite Negative (NEGATIVE) Urine Bilirubin Negative (NEGATIVE) Urine Urobilinogen 0.2 (0.2-1.0) EU/dL Ur Leukocyte Esterase Negative (NEGATIVE) Discharge Plan Discharge Stand Alone Forms: Portal Instructions Chief Complaint: Urogenital-Female Clinical Impression: Dermatitis, Candidiasis of vagina Back pain Qualifiers: Back pain location: low back pain Chronicity: chronic Back pain laterality: right Sciatica presence: without sciatica Qualified Code(s): M54.50 - Low back pain, unspecified Patient Disposition: Home, Self-Care Time of Disposition Decision: 11:53 Condition: Good Prescriptions / Home Meds: New hydrocortisone 0.5 % ointment 1 applic topical DAILY PRN (Reason: rash) Qty: 56 0RF Rx Instructions: not more than 7 days Gyne-Lotrimin 2 % cream 1 appful vaginal .qhs Qty: 21 0RF Rx Instructions: for 5 nights nystatin 100,000 unit/gram powder 1 applic topical BID Qty: 30 0RF No Action hydralazine 100 mg tablet 100 mg PO Q8H labetalol 300 mg tablet 300 mg PO Q12H candesartan 32 mg tablet 32 mg PO DAILY omeprazole 40 mg capsule,delayed release(DR/EC) 40 mg PO Q24H meloxicam 15 mg tablet 15 mg PO Q24H allopurinol 300 mg tablet 300 mg PO Q24H torsemide 20 mg tablet 20 mg PO Q12H atorvastatin 40 mg tablet 40 mg PO Q24H baclofen 10 mg tablet 10 mg PO Q24H insulin lispro [Humalog U-100 Insulin] 100 unit/mL solution 1 sliding scale dose subcut PRN Trulicity 1.5 mg/0.5 mL pen injector 1.5 mg SUBCUT PRN Toujeo Max U-300 SoloStar 300 unit/mL (3 mL) insulin pen 30 unit SUBCUT Q24H potassium chloride [K-Tab] 20 mEq tablet extended release 20 meq PO BID calcium citrate-vitamin D3 315 mg-5 mcg (200 unit) tablet 1 tab PO BID aspirin [Adult Aspirin Regimen] 81 mg tablet,delayed release (DR/EC) 81 mg PO DAILY Print Language: [place] Islander Instructions: Yeast Infection (ED), Acute Low Back Pain (ED) Referrals: ABRAHAM REILLY [Primary Care Provider] - 1 week Discharge Date/Time: 12/13/23 12:36
[2023-12-13 11:20] LABS: Basophils Absolute Auto 0.1 10^3/uL (0.0-0.1); Eosinophils Absolute Auto 0.5 10^3/uL (0.0-0.7); Hematocrit 40.4 % (36.0-48.0); Hemoglobin 12.6 g/dL (12.0-16.0); Immature Granulocytes Abs Auto 0.01 10^3/uL (0.00-0.03); Immature Granulocytes Pct Auto 0.1 % (0.0-0.5); Lymphocytes Absolute Auto 1.5 10^3/uL (1.2-3.8); Lymphocytes Percent Auto 19.4 % (20.5-60.0); Mean Corpuscular HGB Conc 31.2 g/dL (29.9-35.2); Mean Corpuscular Hemoglobin 28.4 pg (26.7-34.0); Mean Platelet Volume 8.9 fL (9.5-13.5); Monocytes Absolute Auto 0.9 10^3/uL (0.3-0.8); Monocytes Percent Auto 11.9 % (1.7-12.0); Neutrophils Absolute Auto 4.7 10^3/uL (1.4-6.5); Neutrophils Percent Auto 60.6 % (43.0-75.0); Platelet Count 318 10^3/uL (150-450); Red Blood Count 4.44 10^6/uL (4.20-5.40); Red Cell Distribution Width 13.4 % (11.0-15.0); White Blood Count 7.7 10^3/uL (4.0-11.0)
[2023-12-13 11:43] LABS: Alanine Aminotransferase 23 U/L (14-59); Albumin Globulin Ratio 0.9; Albumin Level 3.5 g/dL (3.4-5.0); Alkaline Phosphatase 123 U/L (46-116); Anion Gap 11.2; Aspartate Amino Transferase 14 U/L (15-37); Bilirubin Total 0.5 mg/dL (0.2-1.0); Carbon Dioxide 28.7 mmol/L (21.0-32.0); Chloride 100 mmol/L (98-107); Estimated GFR (African America >60 (>=60); Estimated GFR (Non-African Ame 55 (>=60); Globulin 3.8 g/dL; Glucose 310 mg/dL (74-106); Potassium 3.9 mmol/L (3.5-5.1); Sodium 136 mmol/L (136-145); Total Protein 7.3 g/dL (6.4-8.2)
[2023-12-13] MEDS: FLUCONAZOLE 150 MG TABLET PO (12:28)
[2023-12-13] MEDS: KETOROLAC TROMETHAMINE 30 MG/ML VIAL IM (12:28)
== END 2023-12-13 12:36 | disposition home or self-care (01) ==
PROVIDERS: Emergency Provider Emergency Medicine; PCP Internal Medicine
DX: M54.50 Low back pain, unspecified (principal); G89.29 Other chronic pain; L30.9 Dermatitis, unspecified; B37.31 Acute candidiasis of vulva and vagina
CPT/HCPCS: 36415; 80053; 81003; 85025; 96372; 99284; J1885

== ENCOUNTER 2023-12-25 06:58 | Outpatient (RCR) | payer MEDICARE, OTHER, SELFPAY ==
--- NOTE | 2023-10-23 14:30 | CR1_ITS ---
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
--- NOTE | 2023-11-19 | CR1_ITS ---
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
--- NOTE | 2023-12-25 14:30 | PC.NURSE ---
patient plans to attend physical therapy for sciatic nerve pain. patient cannot attend both services at the same time and is currently being discharged from cardiac rehab phase 2. she is planning to return and attend as a phase 3 patient in the near future. provider at [facility] aware of patients discharge.
== END 2023-12-25 14:32 | disposition home or self-care (01) ==
LOC: CR 06:58
PROVIDERS: PCP Internal Medicine; Visit Provider Nurse Practitioner Family
DX: Z95.5 Presence of coronary angioplasty implant and graft (principal)
CPT/HCPCS: 93798

== ENCOUNTER 2024-03-03 08:46 | Outpatient (OUT) | payer MEDICARE, OTHER, SELFPAY ==
--- OUTSIDE RECORDS SUMMARY | 2024-03-03 08:58 | XMS_ITS | CCD ---
Author Organization [facility] Care Team Providers Care Pharmacy Sales Assistant Name Role Phone PHYSICIAN, DEFAULT Admitting Unavailable PHYSICIAN, DEFAULT Attending Unavailable VLAD CESAR Primary Care Unavailable PHYSICIAN, DEFAULT Admitting Unavailable PHYSICIAN, DEFAULT Attending Unavailable VLAD CESAR Primary Care Unavailable Devang Saavedra Unavailable Abner Roa Unavailable MD Abner Roa Attending Provider [phone] MARK Cesar Primary Care Provider MD Abner Roa Admit Provider MARK Cesar Primary Care Provider [phone] MD Abner Roa Attending Provider [phone] MD Chidi Bowen Admit Provider MD Chidi Bowen Attending Provider KENDALL Mancilla Other Provider Unavailable KENDALL Linares Other Provider Unavailable KENDALL Benson Other Provider Unavailable KENDALL Borges Other Provider Unavailable KENDALL Luong Other Provider Unavailable KENDALL Gardner Other Provider Unavailable MD Meliton Schwartz Other Provider MD Fred Nash Other Provider DOTTY Serrano Other Provider DO Yesi Dickens Other Provider [phone] MD Alfredo Lacy Other Provider DO Graeme Davey Other Provider MD James Child Other Provider MD Chel Juarez Other Provider Kimmie, ANP-BC Tuyet Other Provider MD Justine Mercedes Other Provider [phone] MD Regan Hernandez Other Provider MD Adis Cote Other Provider MD Michael Vang Other Provider DO Anton Lane Other Provider MD Awais Bunn Other Provider MD Sonia Mckeon Other Provider MD Boubacar Weston Other Provider Solis CLINICAL AUDITOR-C Latonia Fisher Other Provider MD Roman Rosales E Other Provider MD Riccardo Jenkins Other Provider MD Edie Granados Other Provider MD Eddy Luu Other Provider DO Laine Swan Other Provider Al MD Ruperto Servin Other Provider DO Edwardo Ramirez Other Provider DO Ziggy Vernon Other Provider [phone] DOTTY Degroot Other Provider DO Noam Albarado Other Provider MD Jacobo Montes M Other Provider [phone] Kristie, RN Fariha Other Provider Unavailable MARK Cesar Primary Care Provider MD Abner Roa Admit Provider MD Abner Rao Attending Provider MD Chidi Bowen Admit Provider MD Chidi Bowen Attending Provider KENDALL Mancilla Other Provider Unavailable KENDALL Linares Other Provider Unavailable Marcelino RN Jessica Other Provider Unavailable Jony RN Arcelia Other Provider Unavailable KENDALL Luong Other Provider Unavailable KENDALL Gardner Other Provider Unavailable MD Meliton Schwartz Other Provider MD Fred Nash Other Provider Maggie, INTELLIGENCE MANAGER Mirtha M Other Provider DO Yesi Dickens [...] Other Provider DO Edwardo Ramirez Other Provider [phone] DO Ziggy Vernon Other Provider [phone] DOTTY Degroot Other Provider DO Noam Albarado Other Provider MD Jacobo Montes Other Provider [phone] KENDALL Flowers Other Provider Unavailable Arsenio, MARK Chu Primary Care Provider MD Abner Roa Attending Provider Arsenio, MARK Chu Primary Care Provider [phone] MD Abner Roa Attending Provider ARSENIO, DR [...] Unavailable Arsenio, MARK Chu Primary Care Provider [phone] MD Abner Roa Attending Provider Unavailable Primary Care Provider UnavailVlad Leon MD Primary Care Provider Vlad Cesar MD Unavailable Abner Roa Admitting Unavailable Abner Roa Attending Unavailable Vlad Cesar Primary Care Unavailable Abner Roa Admitting Unavailable Abner Roa Attending Unavailable Vlad Cesar Primary Care Unavailable Abner Roa Admitting Unavailable Abner Roa Attending Unavailable Vlad Cesar Primary Care Unavailable Arsenio, MARK Chu Primary Care Provider MD Abner Roa Attending Provider [phone] JULITO ZENDEJAS Referring Unavailable NIRAJ SAN Attending Unavailable NIRAJ SAN Attending Unavailable DALE ACOSTA Referring Unavailable DALE ACOSTA Referring Unavailable IVORY GARRETT Referring Unavailable JULITO ZENDEJAS Admitting Unavailable MOUKARBEL, JULITO Attending Unavailable IVORY GARRETT Referring Unavailable MOUKARBEL, JULITO Attending Unavailable DULCE GARCIA Attending Unavailable DEANASHAWNA CHRISTENSEN Referring Unavailable NIRAJ SAN Attending Unavailable MOUKARBEL, JULITO Attending Unavailable MOUKARBEL, JULITO Referring Unavailable SANAULLAH, JOSHUA Referring Unavailable ANGELIKA SANTOS Referring Unavailable MOUKARBEL, JULITO Referring Unavailable SANAULLAH, JOSHUA Admitting Unavailable RUPERTO GONZALES Attending Unavailable UNKNOWN, UNKNOWN Referring Unavailable SHAWNA LEBLANC Attending Unavailable ALEXIVON CRUZ Admitting Unavailable MOUKARBEL, JULITO Referring Unavailable DAVEDALE GARCIA Referring Unavailable ROBBI URIBE Attending Unavailable CASEY العلي Attending Unavailable SEGUN URIBEEH Referring Unavailable El Rashmary carmen, Rachelle Attending Unavailable Lance Contreras, Rachelle Referring Unavailable Lance Contreras MD, May Unavailable Unavailable VLAD CESAR Attending Unavailable MYA CISSE Attending Unavailable VLAD CESAR Attending Unavailable VLAD CESAR Attending Unavailable MYA CISSE Attending Unavailable VLAD CSEAR Attending Unavailable VLAD CESAR Attending Unavailable HEMMER, JESSICA Mona Attending Unavailable MARKJAYDEN Attending Unavailable HEMMER, JESSICA M Referring Unavailable MARKJAYDEN Attending Unavailable HEMMER, JESSICA M Referring Unavailable NELYJOHN Attending Unavailable HEMMER, JESSICA M Referring Unavailable NELY JOHN Attending Unavailable HEMMER, JESSICA M Referring Unavailable NELYJOHN Attending Unavailable HEMMER, JESSICA M Referring Unavailable NELYJOHN Attending Unavailable HEMMER, JESSICA M Referring Unavailable NELYJOHN Attending Unavailable HEMMER, JESSICA M Referring Unavailable VLAD CESAR Attending Unavailable NELY JOHN Attending Unavailable HEMMER, JESSICA M Referring Unavailable NELY JOHN Attending Unavailable HEMMER, JESSICA M Referring Unavailable LORELEI GARRIDO Attending Unavailable HEMMER, JESSICA M Referring Unavailable CRISTIAN MEREDITH Attending Unavailable NELY JOHN Attending Unavailable HEMMER, JESSICA M Referring Unavailable MARK, JAYDEN Attending Unavailable HEMMER, JESSICA M Referring Unavailable NELY JOHN Attending Unavailable HEMMER, JESSICA M Referring Unavailable NELY JOHN Attending Unavailable HEMMER, JESSICA M Referring Unavailable VLAD CESAR Attending Unavailable Allergies Allergy Classification Reported Allergen(s) Allergy Type Date of Onset Reaction(s) Facility (1 source) 97916,00; Translations: [50128,00] Propensity to adverse reactions (disorder) 9 [facility] Repository (20 sources) gabapentin; Translations: [GABAPENTIN] Drug Allergy 2 Palpitations [facility] (13 sources) traMADol; Translations: [tramadol] Drug Allergy 2 Other [facility] (1 source) gabapentin Drug Allergy 4 [facility] Repository (1 source) Penicillin; Translations: [PENICILLIN] Drug Allergy 4 [facility] Medications Current Medications Medication Drug Class(es) Dates [...] aspirin 81 mg delayed release oral tablet (20 sources) Platelet Aggregation Inhibitor, Nonsteroidal Anti-inflammatory Drug Start: 03-05-2022 End: 04-03-2022 take 81 mg by mouth once daily Aspirin Active 81 MG PO Daily April 03, 2022 12:00am take 1 tablet by mouth once reinaldo y aspirin 81 mg chewable tablet chew 1 tablet by oral route every day 81 MG - Active atorvastatin 80 mg oral tablet (20 sources) [...] by mouth at bedtime 0 07/09/2023 Active take 1 tablet by annabel th twice daily atorvastatin 40 mg tablet take 1 tablet by oral route 2 times every day 40 MG - Active baclofen 10 mg oral tablet (20 [...] by mouth at bedtime 0 07/09/2023 Active take 1 tablet by annabel th three times daily baclofen 10 mg tablet take 1 tablet by oral route 3 times every day 10 MG - Active bumetanide 1 mg oral tablet (20 sources) Loop Diuretic Start: 03-05-2022 End: 04-03-2022 take 1 mg by mouth once daily Bumetanide Active 1 MG PO Daily 30 April 03, 2022 12:00am calcium carbonate 1250 [...] 2022 8:52am carvedilol 6.25 mg oral tablet (5 sources) alpha-Adrenergic Oniel, beta-Adrenergic Oniel Start: 07-07-2023 [...] 2022 12:00am dapagliflozin 10 mg oral tablet (5 sources) Sodium-Glucose Cotransporter 2 Inhibitor Start: 07-08-2023 [...] 03, 2022 8:52am take 1 capsule by [facility] every twenty-four hours Stool Softener 100 MG 1 capsule as needed Orally Once a day Active docusate sodium 50 mg / sennosides, shelter 8.6 mg oral tablet (13 sources) Start: 03-21-2022 End: 04-03-2022 take 2 tablets by mouth twice daily Sennosides-Docusate Sodium (Stool Softener-Stimulant Laxat) 8.6-50 mg Tablet Active 2 TAB PO Twice daily April 03, 2022 12:00am 0.5 ml dulaglutide [...] 05, 2022 12:00am April 03, 2022 8:52am ezetimibe 10 mg oral tablet (1 source) Dietary Cholesterol Absorption Inhibitor take 1 tablet by mouth once daily ezetimibe 10 mg tablet take 1 tablet by oral route every day 10 MG - Active gabapentin 100 mg oral capsule (2 sources) Anti-epileptic Agent Start: 2 Gabapentin 100 MG 1 capsule Orally start daily at bedtime and increase by 1 tablet every 5 days until taking three times daily for 30 day(s) Nov, Active HANDICAP PLACARD 5 YEAR (2 sources) Start: 3 HANDICAP PLACARD 5 YEAR Indications: Diastolic congestive heart failure, unspecified HF chronicity (CMS/HCC) , Gout, unspecified cause, unspecified chronicity, unspecified site 5 Units by Other route in the morning. 5 Year Duration for Handicap Placard. 1 Units 4 12/02/2022 Active hydrALAZINE hydrochloride 100 mg oral tablet (20 sources) Arteriolar Vasodilator Start: 3 take 1 tablet by mouth three times [...] 03-05-2022 take 100 mg by mouth twice aleshia ly Hydralazine Active 100 MG PO Twice daily March 05, 2022 12:00am take 3 tablets by mo uth three times daily at mealtime hydralazine 25 mg tablet take 3 tablet by oral route 3 times every day with food 75 MG - Active Insulin Aspart U-100 (Novolog Flexpen U-100 Insulin) [...] SUBCUT 3X/Day with meals and bedtime March 21, 2022 12:00am April 03, 2022 8:52am Start: 03-21-2022 Insulin Aspart U-100 (Novolog Flexpen U-100 Insulin) 100 unit/mL (3 mL) Insulin Pen Active 0 UNITS SUBCUT 3X/Day with meals and bedtime 0 March 21, 2022 12:00am 3 ml insulin glargine 300 unt/ml pen injector (20 sources) Insulin Analog Start: 06-15-2023 inject 300 [...] skin in the morning. 0 11/19/2021 Active Toujeo SoloStar U-300 Insulin 300 unit/mL (1.5 mL) subcutaneous pen inject by subcutaneous route as per insulin protocol 0.00 - Active insulin lispro 100 unt/ml injectable solution [...] complication, with long-term current use of insulin ([facility]) Inject 25 Units under the skin in the morning and 25 Units at noon and 25 Units in the evening. Inject before meals. 0 07/09/2023 Active Start: 03-05-2022 End: 04-03-2022 inject 25 [IU] by subcutaneous injection once daily Insulin Lispro (Humalog U-100 Insulin) 100 unit/mL Solution Discontinued 25 UNIT SUBCUT Daily March 05, 2022 12:00am April 03, 2022 8:52am Humalog KwikPen (U-100) Insulin 100 unit/mL subcutaneous inject by subcutaneous route per prescriber's instructions. Insulin dosing requires individualization. 0.00 - Active HumaLOG 100 UNIT /ML as directed Subcutaneous [...] 12:00am April 03, 2022 8:52am take 1 tablet by annabel th twice daily meloxicam 7.5 mg tablet take 1 tablet by oral route 2 times every day 7.5 MG - Active metOLazone 2.5 mg oral tablet (20 sources) [...] 05, 2022 12:00am April 03, 2022 8:52am microencapsulated potassium chloride 20 meq extended release oral tablet (20 sources) Start: 04-03-2022 Potassium Chlo ride (Klor-Con M20) 20 mEq Tablet,Er Particles/Crystals Active 20 MEQ PO Daily 30 April 03, 2022 12:00am Start: 03-05-2022 take 20 mEq by mouth twice daily Potassium Chloride Active 20 MEQ PO Twice daily March 05, 2022 12:00am Start: 03-05-2022 End: 04-03-2022 take 20 mEq by mouth once daily Potassium Chloride Discontinued 20 MEQ PO Daily March 05, 2022 12:00am April 03, 2022 8:52am Potassium Chlori de 20 MEQ as directed Orally Once a day Active Probiotic - (2 sources) Probiotic - as d irected Orally Active sacubitril 49 mg / valsartan 51 mg oral tablet (1 source) Angiotensin 2 Receptor Oniel take 1 tablet by mouth twice daily Entresto 49 mg-51 mg tablet take 1 tablet by oral route 2 times every day 1.00 tablet - Active spironolactone 25 mg oral tablet (1 source) Aldosterone Antagonist take 0.5 tablet by mouth once daily spironolactone 25 mg tablet take 0.5 tablet by oral route every day 12.5 MG - Active SteriLance PA (15 sources) SteriLance PA Ac tive torsemide 20 mg oral tablet (7 sources) Loop Diuretic Start: 07-09-2023 take 1 tablet by mouth twice daily torsemide (DEMADEX) 20 mg tablet Take 1 tablet (20 mg total) by mouth 2 (two) times a day. 0 07/09/2023 Active take 2 tablets by mouth once aleshia ly torsemide 20 mg tablet take 2 tablet by oral route every day 40 MG - Active Torsemide 20 MG as directed Orally Active YULIA MCGEE (15 sources) YULIA MCGEE Active Completed/Discontinued Medications Medication Drug Class(es) Dates [...] Translations: [Impaired mobility and endurance] 03-23-2022 Episodic Cataract (2 sources) Bilateral senile combined form cataracts of eyes; Translations: [Bilateral senile combined form cataracts of eyes] Chronic Congestive heart failure; nonhypertensive (18 sources) Unspecified diastolic (congestive) heart failure; Translations: [Acute on chronic diastolic heart failure] Onset: 05-17-2022 Chronic Coronary atherosclerosis and other heart disease (14 sources) Coronary arteriosclerosis; Translations: [Atherosclerotic heart disease of [place] coronary artery without angina pectoris] Onset: 10-08-2023 03-23-2022 Chronic Diabetes mellitus with complications (12 sources) Skin ulcer due to type 2 [...] Translations: [Immunodeficiency due to conditions classified elsewhere ([facility])] 07-21-2023 Chronic Osteoarthritis (20 sources) Localized, primary [...] syndrome, bilateral upper limbs] 08-19-2023 Chronic Other nervous system disorders (1 source) Carpal tunnel syndrome, bilateral upper limbs; Translations: [Carpal tunnel syndrome, bilateral upper limbs] Onset: 12-15-2023 Chronic Other nutritional; endocrine; and metabolic disorders [...] apnea (adult) (pediatric)] Onset: 10-15-2022 04-21-2023 Chronic Retinal detachments; defects; vascular occlusion; and retinopathy (2 sources) Nonexudative age-related macular degeneration; Translations: [Nonexudative age-related macular degeneration] Chronic Spondylosis; intervertebral disc disorders; other back [...] 01-13-2023 01-13-2023 Episodic Other aftercare (1 source) [facility] (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 of aspirin; Translations: [JUNIOR ARCHITECT CURRENT USE OF ASPIRIN] Onset: 05-16-2022 Episodic Other aftercare (1 source) [facility] (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 of insulin; Translations: [JUNIOR ARCHITECT CURRENT USE OF INSULIN] Onset: 05-16-2022 Episodic Other aftercare (1 source) 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 (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 therapy; Translations: [OTH JUNIOR ARCHITECT CURRENT DRUG THERAPY] Onset: 05-16-2022 Episodic Other aftercare (2 sources) Long-term current use of insulin; Translations: [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 (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 of insulin] Onset: 07-12-2015 01-13-2023 [...] Resistant hypertension; Translations: [Resistant hypertension] Onset: 07-16-2023 Unclassified (1 source) DM with mild NPDR with ME (chief complaint) Onset: 01-08-2024 Unclassified (1 source) NPDR (chief complaint) Onset: 12-09-2023 Results Test Name Value Interpretation Reference Range Facility Office Visiton 12-04-2023 Follow-up visit [id number] Laura Lawson 1950 F Date Provider Department Center 12/04/2023 JULITO SALAZAR [facility] Family History Problem Relation Age of Onset JABARI disease Mother Heart attack Father Family Status - Relation Status Age at Mother Father Level of Service:61416 [place] OFFICE/OUTPATIENT ESTABLISHED MOD MDM 30 MIN Normal [facility] XR lumbar spine AP/LAT/FLX/E XTon 10-23-2023 XR lumbar spine AP/LAT/FLX/EXT [facility] [place] [address] XRay Report Signed Patient: Laura Lawson MR#: [id number] : 1950 Acct:[id number] Age/Sex: 72 / F ADM Date: 10/23/23 Loc: XD [facility]: [facility] Dr: Abner Roa MD Copies to: [...] Amaury Devlin M.D.10/23/2023 2:34 PM Dictation Location: [place] [address] Transcribed By: [facility] 10/23/23 1434 Dictated By: Amaury Devlin DO 10/23/23 1430 Signed By: 10/23/23 1434 Normal [facility] Office Visiton 10-14-2023 Follow-up visit [id number] Laura Lawson 1950 F Date Provider Department Center 10/14/2023 Zaida-NIRAJ [facility] Family History Problem Relation Age of Onset JABARI disease Mother Heart attack Father Family Status - Relation Status Age at Mother Father Level of Service:20927 [place] OFFICE/OUTPATIENT ESTABLISHED MOD MDM 30 MIN Reason for Visit and Comments: Coronary Artery Disease [187] Congestive Heart Failure [127] Hypertension [083883] Normal [facility] 30on 10-09-2023 30 The patient is Moderately [...] to address these barriers include N/A. Normal [facility] BASIC METABOLIC PANELon 05-0 Anion gap [Moles/Vol] 11 mmol/L Normal 7-20 [facility] Comment on above: Performed By: #### L [id number] #### [facility] ([facility]) [address] [place] [address] Calcium [Mass/Vol] 9.7 mg/dL Normal 8.6-10.3 [facility] Comment on above: Performed By: #### L [id number] #### [facility] ([facility]) [address] [place] [address] Chloride [Moles/Vol] 104 mmol/L Normal 98-107 [facility] Comment on above: Performed By: #### L [id number] #### [facility] ([facility]) [address] [place] [address] CO2 [Moles/Vol] 24 mmol/L Normal 21-31 [facility] Comment on above: Performed By: #### L [id number] #### [facility] ([facility]) [address] [place] [address] Creatinine [Mass/Vol] 1.18 mg/dL Normal 0.60-1.20 [facility] Comment on above: Performed By: #### L [id number] #### [facility] ([facility]) [address] [place] [address] GLOMERULAR FILTRATION RATE ML/MIN/1.73 SQ M.PREDICTED 49.7 mL/min/1.73m*2 Low >60.0 [facility] Comment on above: Result Comment: The [facility]???s estimated glomerular filtration rate (eGFR) will no [...] group of individuals. Performed By: #### L [id number] #### [facility] ([facility]) [address] [place] [address] Glucose [Mass/Vol] 231 mg/dL High 70-100 [facility] Comment on above: Performed By: #### L [id number] #### [facility] ([facility]) [address] [place] [address] Potassium [Moles/Vol] 4.2 mmol/L Normal 3.5-5.1 [facility] Comment on above: Performed By: #### L [id number] #### [facility] ([facility]) [address] [place] [address] Sodium [Moles/Vol] 135 mmol/L Low 136-145 [facility] Comment on above: Performed By: #### L [id number] #### [facility] ([facility]) [address] [place] [address] Urea nitrogen [Mass/Vol] 37 mg/dL High 7-25 [facility] Comment on above: Performed By: #### L [id number] #### [facility] ([facility]) [address] [place] [address] UREA NITROGEN/CREATININE (MASS RATIO) IN SER/PLAS 31.4 Normal [facility] Comment on above: Performed By: #### L [id number] #### [facility] ([facility]) [address] [place] [address] CBCon 10-09-2023 Erythrocyte distribution width (RBC) [Ratio] 15.1 % High 11.5-15.0 [facility] Comment on above: Performed By: #### L [id number] ####[facility] ([facility])[address] [place] [address] ERYTHROCYTE MEAN CORPUSCULAR HEMOGLOBIN CONCENTRATION (G/DL) BY AUTOMATED 31.9 g/dL Low 32.0-35.0 [facility] Comment on above: Performed By: #### L [id number] ####[facility] ([facility])[address] [place] [address] Hematocrit (Bld) [Volume fraction] 32.9 % Low 36.0-48.0 [facility] Comment on above: Performed By: #### L [id number] ####[facility] ([facility])[address] [address] Hemoglobin (Bld) [Mass/Vol] 10.5 g/dL Low 12.0-15.0 [facility] Comment on above: Performed By: #### L [id number] ####[facility] ([facility])[address] [address] MCH (RBC) [Entitic mass] 32.0 pg Normal 27.0-33.0 [facility] Comment on above: Performed By: #### L [id number] ####[facility] ([facility])[address] [place], [place] [address] MCV (RBC) [Entitic vol] 100.3 fL High 82.0-98.0 [facility] Comment on above: Performed By: #### L [id number] ####[facility] ([facility])[address] [place] [address] PLATELETS (10*3/UL) IN BLOOD AUTOMATED COUNT 259 10*3/uL Normal 150-400 [facility] Comment on above: Performed By: #### L [id number] ####[facility] ([facility])[address] [place] [address] RBC (Bld) [#/Vol] 3.28 10*6/uL Low 3.80-5.00 [facility] Comment on above: Performed By: #### L [id number] ####[facility] ([facility])[address] [place] [address] WBC (Bld) [#/Vol] 13.05 10*3/uL High 4.00-10.60 [facility] Comment on above: Performed By: #### L [id number] ####[facility] ([facility])[address] [address] DSon 10-09-2023 DS --- Attestation signed by [...] 70% instent (more content not included)... Normal [facility] POCT GLUCOSE METER UNSOLICIT ED RESULTSon 10-09-2023 Glucose [Mass/Vol] 225 mg/dL High 70-105 [facility] Comment on above: Order Comment: Waive d Testing in the ED is performed under the ED CLIA certificate #[id number]. Result Comment: [email or web address] mon Performed By: #### L [id number] #### [facility] ([facility]) [address] [place] [address] Glucose [Mass/Vol] 215 mg/dL High 70-105 [facility] Comment on above: Order Comment: Waive d Testing in the ED is performed under the ED CLIA certificate #[id number]. Result Comment: [email or web address] Performed By: #### L [id number] #### [facility] ([facility]) [address] [place] [address] 30on 10-08-2023 30 The patient is Moderately [...] the next 3 months Outcome: Progressing Normal [facility] HPon 10-08-2023 H&P reviewed. The patient was examined and [...] explained the procedure with risks and benefits. Normal [facility] NURSNOTEon 10-08-2023 NURSNOTE Report called to Benigno cabello RN. He denies questions/concerns. [facility] POCT GLUCOSE METER UNSOLICIT ED RESULTSon 10-08-2023 Glucose [Mass/Vol] 208 mg/dL High 70-105 [facility] Comment on above: Order Comment: Waive d Testing in the ED is performed under the ED CLIA certificate #[id number]. Result Comment: [email or web address] Performed By: #### L [id number] #### [facility] ([facility]) [address] [place] [address] Glucose [Mass/Vol] 179 mg/dL High 70-105 [facility] Comment on above: Order Comment: Waive d Testing in the ED is performed under the ED CLIA certificate #[id number]. Result Comment: [email or web address] Performed By: #### L [id number] #### [facility] ([facility]) [address] [place] [address] HPon 09-26-2023 HP hydral [place] [facility] Clinic Subjective Laura Lawson is a 72 y.o. year old female patient being seen for Follow-up (Follow up - heart cath ) Patient Active Problem List Diagnosis Allergic rhinitis Angiomyolipoma of kidney Benign essential hypertension Cerebrovascular disease Chronic foot ulcer ([facility]/HCC) Coronary atherosclerosis Decreased estrogen level Diabetic retinopathy associated with type 2 diabetes mellitus ([facility]/HCC) Diaphragmatic hernia Difficulty walking Dyspnea on exertion Generalized osteoarthritis Gout History of arthritis History of hysterectomy Hyperglycemia due to type 2 diabetes mellitus ([facility]/HCC) [facility] current use of insulin ([facility]) Low back pain Morbid obesity ([facility]) Neoplasm of uncertain behavior of kidney Obstructive sleep apnea syndrome Osteoarthritis of knee Osteoporosis Peripheral venous insufficiency Polyneuropathy due to type 2 diabetes mellitus ([facility]) Preoperative evaluation to rule out surgical contraindication Pulmonary function studies abnormal Pure hypercholesterolemia Renal mass Skin sensation disturbance Type 2 diabetes mellitus without complication ([facility]) Umbilical hernia Uric acid nephrolithiasis NSTEMI (non-ST elevated myocardial infarction) ([facility]) Acute exacerbation of CHF (congestive heart failure) ([facility]) COVID-19 Acquired spondylolisthesis Acute on chronic diastolic heart failure ([facility]) Coronary artery disease (CAD) excluded Diastolic dysfunction GERD (gastroesophageal reflux disease) History of carpal tunnel surgery of right wrist Hyperlipidemia Impaired mobility and endurance Localized edema Lumbar radiculopathy Morbid obesity with body mass index (BMI) of 45.0 to 49.9 in adult ([facility]) Paresthesia of skin Primary osteoarthritis of both knees S/P drug eluting coronary stent placement Ulcer of foot due to type 2 diabetes mellitus (CMS/HCC) Pericardial effusion Acute systolic heart failure (CMS/HCC) CAD in capitan grande band artery Family History Problem Relation Name Age [...] alert and (more content not included)... Normal [facility] Office Visiton 09-26-2023 Follow-up visit [id number] Laura Lawson 1950 F Date Provider Department Center 09/26/2023 JULITO SALAZAR ESTHELA Rebollar Family History Problem Relation Age of Onset JABARI disease Mother Heart attack Father Family Status - Relation Status Age at Mother Father Level of Service:28434 [place] OFFICE/OUTPATIENT ESTABLISHED HIGH [facility] 40 MIN Reason for Visit and Comments: Follow-up [373281] - Follow up - heart cath Normal [facility] 30on 09-10-2023 30 Daily Case Managemen t [...] PT Recommendations: OT Recommendations: New Consults: Normal [facility] CBC WITH AUTO DIFFERENTIALon 09-10-2023 Basophils (Bld) [#/Vol] 0.05 10*3/uL Normal 0.00-0.20 [facility] Comment on above: Performed By: #### L [id number] #### [facility] ([facility]ER) [address] [place] [address] Basophils/100 WBC (Bld) 0.6 % Normal 0.0-1.0 [facility] Comment on above: Performed By: #### L [id number] #### [facility] ([facility]ER) [address] [place] [address] Eosinophils (Bld) [#/Vol] 0.35 10*3/uL Normal 0.00-0.50 [facility] Comment on above: Performed By: #### L [id number] #### [facility] (BEAKER) [address] [place] [address] Eosinophils/100 WBC (Bld) 4.0 % Normal 0.0-6.0 [facility] Comment on above: Performed By: #### L [id number] #### [facility] (BEAKER) [address] [place] [address] Erythrocyte distribution width (RBC) [Ratio] 15.7 % High 11.5-15.0 [facility] Comment on above: Performed By: #### L [id number] #### [facility] ([facility]) [address] [place] [address] ERYTHROCYTE MEAN CORPUSCULAR HEMOGLOBIN CONCENTRATION (G/DL) BY AUTOMATED 32.6 g/dL Normal 32.0-35.0 [facility] Comment on above: Performed By: #### L [id number] #### [facility] (BEAKER) [address] [place] [address] Hematocrit (Bld) [Volume fraction] 38.0 % Normal 36.0-48.0 [facility] Comment on above: Performed By: #### L [id number] #### [facility] (BEAKER) [address] [place] [address] Hemoglobin (Bld) [Mass/Vol] 12.4 g/dL Normal 12.0-15.0 [facility] Comment on above: Performed By: #### L [id number] #### [facility] (BEAKER) [address] [place] [address] Immature granulocytes (Bld) [#/Vol] 0.02 10*3/uL Normal 0.00-0.20 [facility] Comment on above: Performed By: #### L [id number] #### [facility] ([facility]) [address] [place] [address] Immature granulocytes/100 WBC (Bld) 0.2 % Normal 0.0-1.0 [facility] Comment on above: Performed By: #### L [id number] #### [facility] ([facility]) [address] [place] [address] Lymphocytes (Bld) [#/Vol] 1.93 10*3/uL Normal 1.20-4.00 [facility] Comment on above: Performed By: #### L [id number] #### [facility] ([facility]) [address] [place] [address] Lymphocytes/100 WBC (Bld) 22.0 % Normal 20.0-45.0 [facility] Comment on above: Performed By: #### L [id number] #### [facility] ([facility]) [address] [place] [address] MCH (RBC) [Entitic mass] 30.7 pg Normal 27.0-33.0 [facility] Comment on above: Performed By: #### L [id number] #### [facility] ([facility]) [address] [place] [address] MCV (RBC) [Entitic vol] 94.1 fL Normal 82.0-98.0 [facility] Comment on above: Performed By: #### L [id number] #### [facility] ([facility]) [address] [place] [address] Monocytes (Bld) [#/Vol] 1.04 10*3/uL High 0.10-1.00 [facility] Comment on above: Performed By: #### L [id number] #### [facility] (BEAKER) [address] [place] [address] Monocytes/100 WBC (Bld) 11.8 % Normal 5.0-12.0 [facility] on above: Performed By: #### L [id number] #### [facility] ([facility]) [address] [place] [address] Neutrophils (Bld) [#/Vol] 5.40 10*3/uL Normal 1.60-7.60 [facility] Comment on above: Performed By: #### L [id number] #### [facility] ([facility]) [address] [place] [address] Neutrophils/100 WBC (Bld) 61.4 % Normal 40.0-72.0 [facility] Comment on above: Performed By: #### L [id number] #### [facility] ([facility]) [address] [place] [address] NRBC (PER 100 WBCS) BY AUTOMATED COUNT 0.0 % Normal 0 [facility] Comment on above: Performed By: #### L [id number] #### [facility] ([facility]) [address] [place] [address] PLATELETS (10*3/UL) IN BLOOD AUTOMATED COUNT 256 10*3/uL Normal 150-400 [facility] Comment on above: Performed By: #### L [id number] #### [facility] ([facility]) [address] [place] [address] RBC (Bld) [#/Vol] 4.04 10*6/uL Normal 3.80-5.00 [facility] Comment on above: Performed By: #### L [id number] #### [facility] ([facility]) [address] [place] [address] WBC (Bld) [#/Vol] 8.79 10*3/uL Normal 4.00-10.60 [facility] Comment on above: Performed By: #### L [id number] #### [facility] ([facility]) [address] [place] [address] COMPREHENSIVE METABOLIC PANE Agus 09-10-2023 Albumin [Mass/Vol] 3.5 g/dL Normal 3.5-5.7 [facility] Comment on above: Performed By: #### L [id number] #### [facility] ([facility]) [address] [place] [address] ALP [Catalytic activity/Vol] 67 U/L Normal 34-104 [facility] Comment on above: Performed By: #### L [id number] #### [facility] ([facility]) [address] [place] [address] ALT [Catalytic activity/Vol] 12 U/L Normal 7-52 [facility] Comment on above: Performed By: #### L [id number] #### [facility] ([facility]) [address] [place] [address] Anion gap [Moles/Vol] 11 mmol/L Normal 7-20 [facility] Comment on above: Performed By: #### L [id number] #### [facility] ([facility]) [address] [place] [address] AST [Catalytic activity/Vol] 15 U/L Normal 13-39 [facility] Comment on above: Performed By: #### L [id number] #### [facility] ([facility]) [address] [place] [address] Bilirubin [Mass/Vol] 0.6 mg/dL Normal 0.3-1.0 [facility] Comment on above: Performed By: #### L [id number] #### [facility] ([facility]) [address] [place] [address] Calcium [Mass/Vol] 9.5 mg/dL Normal 8.6-10.3 [facility] Comment on above: Performed By: #### L [id number] #### [facility] ([facility]) [address] [place] [address] Chloride [Moles/Vol] 103 mmol/L Normal 98-107 [facility] Comment on above: Performed By: #### L [id number] #### [facility] ([facility]) [address] [place] [address] CO2 [Moles/Vol] 26 mmol/L Normal 21-31 [facility] Comment on above: Performed By: #### L [id number] #### [facility] ([facility]) [address] [place] [address] Creatinine [Mass/Vol] 0.84 mg/dL Normal 0.60-1.20 [facility] Comment on above: Performed By: #### L [id number] #### [facility] ([facility]) [address] [place] [address] GLOMERULAR FILTRATION RATE ML/MIN/1.73 SQ M.PREDICTED 74.7 mL/min/1.73m*2 Normal >60.0 [facility] Comment on above: Result Comment: The [facility]???s estimated glomerular filtration rate (eGFR) will no [...] group of individuals. Performed By: #### L [id number] #### [facility] ([facility]) [address] [place] [address] Glucose [Mass/Vol] 148 mg/dL High 70-100 [facility] Comment on above: Performed By: #### L [id number] #### [facility] ([facility]) [address] [place] [address] Potassium [Moles/Vol] 4.1 mmol/L Normal 3.5-5.1 [facility] Comment on above: Performed By: #### L [id number] #### [facility] ([facility]) [address] [place] [address] Protein [Mass/Vol] 5.8 g/dL Low 6.0-8.3 [facility] [place] [facility] Comment on above: Performed By: #### L [id number] #### [facility] ([facility]) [address] [place] [address] Sodium [Moles/Vol] 136 mmol/L Normal 136-145 [facility] Comment on above: Performed By: #### L [id number] #### [facility] ([facility]) [address] [place] [address] Urea nitrogen [Mass/Vol] 27 mg/dL High 7-25 [facility] Comment on above: Performed By: #### L [id number] #### [facility] ([facility]) [address] [place] [address] UREA NITROGEN/CREATININE (MASS RATIO) IN SER/PLAS 32.1 Normal [facility] Comment on above: Performed By: #### L [id number] #### [facility] ([facility]) [address] [place] [address] HEMOGLOBIN A1Con 09-10-2023 Glucose [Mass/Vol] 252 mg/dL Normal [facility] Comment on above: Performed By: #### L [id number] #### [facility] ([facility]) [address] [place] [address] HbA1c (Bld) [Mass fraction] 10.4 % High 4.0-6.0 [facility] Comment on above: Performed By: #### L [id number] #### [facility] ([facility]) [address] [place] [address] LIPID PANELon 09-10-2023 CHOL/HDL 2.8 mg/dL Normal [facility] Comment on above: Performed By: #### L [id number] #### [facility] ([facility]) [address] [place] [address] Cholesterol [Mass/Vol] 148 mg/dL Normal 120-200 [facility] Comment on above: Performed By: #### L [id number] #### [facility] ([facility]) [address] [place] [address] Magnesium [Mass/Vol] 89 mg/dL Normal 40-149 [facility] Comment on above: Result Comment: TRIG LYCERIDE REFERENCE RANGE: 20 YEARS AND OLDER CARDIOVASCULAR RISK LESS THAN 150 mg/dL LOW RISK 150 TO 199 mg/dL BORDERLINE RISK 200 mg/dL AND GREATER HIGH RISK Performed By: #### L [id number] #### [facility] ([facility]) [address] [place] [address] Magnesium [Mass/Vol] 77 mg/dL Normal 0-160 [facility] Comment on above: Performed By: #### L [id number] #### [facility] ([facility]) [address] [place] [address] Magnesium [Mass/Vol] 53 mg/dL Normal 23-92 [facility] Comment on above: Performed By: #### L [id number] #### [facility] ([facility]) [address] [place] [address] NON HDL CHOL. (LDL+VLDL) 95 Normal [facility] Comment on above: Performed By: #### L [id number] #### [facility] ([facility]) [address] [place] [address] TOTAL VLDL-C 18 mg/dL Normal 0-40 [facility] Comment on above: Performed By: #### L [id number] #### [facility] ([facility]) [address] [place] [address] MAGNESIUMon 09-10-2023 Magnesium [Mass/Vol] 2.1 mg/dL Normal 1.9-2.7 [facility] Comment on above: Performed By: #### L [id number] #### [facility] ([facility]) [address] [place] [address] NURSNOTEon 09-10-2023 NURSNOTE AVS reviewed and discussed with the patient. The patient has no further questions or concerns at this time. [employer] has delivered two medications to the room. The patient has notified her friend of needing a ride home ETA 1900. Normal [facility] POCT GLUCOSE METER UNSOLICIT ED RESULTSon 09-10-2023 Glucose [Mass/Vol] 156 mg/dL High 70-105 [facility] Comment on above: Order Comment: Waive d Testing in the ED is performed under the ED CLIA certificate #[id number]. Result Comment: [email or web address] [email or web address] Performed By: #### L [id number] #### [facility] ([facility]ER) [address] [place] [address] Glucose [Mass/Vol] 141 mg/dL High 70-105 [facility] Comment on above: Order Comment: Waive d Testing in the ED is performed under the ED CLIA certificate #[id number]. Result Comment: [email or web address] [email or web address] Performed By: #### L [id number] #### [facility] (BEAKER) [address] [place] [address] 30on 09-09-2023 30 The patient is Moderately [...] prescribed range Outcome: Adequate for Discharge Normal [facility] 30 The patient is Moderately Stable - Low risk of patient condition declining or worsening The patient's goals for the shift include Comfort The clinical goals for the shift include comfort Normal [facility] CONSULTon 09-09-2023 CONSULT --- Attestation signed by [...] ???C (9 (more content not included)... Normal [facility] HPon 09-09-2023 History Of Present Illness Laura [...] systolic heart failure. Coronary artery disease involving capitan grande band coronary artery of capitan grande band heart without angina pectoris status post stent x 4, last PCI 2013 Mixed hyperlipidemia. Resistant hypertension. Cerebrovascular disease. Type 2 diabetes mellitus. Given her acute systolic heart failure, will be proceeding with a coronary angiogram (more content not included)... Normal [facility] NURSNOTEon 09-09-2023 NURSNOTE Report given to Niels quintana RN from Roselia ARGUETA Any medications or safety alerts were reviewed. Any pending diagnostics and notifications were also reviewed, as well as any safety concerns or issues, abnormal labs, abnormal imagining, and abnormal assessment findings. Questions were answered. Normal [facility] POCT GLUCOSE METER UNSOLICIT ED RESULTSon 09-09-2023 Glucose [Mass/Vol] 163 mg/dL High 70-105 [facility] Comment on above: Order Comment: Waive d Testing in the ED is performed under the ED CLIA certificate #[id number]. Result Comment: [email or web address] Performed By: #### L [id number] #### [facility] (BEAKER) [address] [place] [address] Glucose [Mass/Vol] 228 mg/dL High 70-105 [facility] Comment on above: Order Comment: Waive d Testing in the ED is performed under the ED CLIA certificate #[id number]. Result Comment: [email or web address] [email or web address] Performed By: #### L [id number] #### [facility] (BEAKER) [address] [place] [address] 36on 08-28-2023 36 Reviewed their note. Lets proceed with a cardiac cath please for assessment of her acute systolic heart failure. They also recommended a LOOP recorder. Can we see if this can be done the same day? If not, will plan for cath first. Thanks! [facility] Orders Onlyon 08-28-2023 Orders Only [id number] Laura Lawson 1950 F Date Provider Department Center 08/28/2023 [facility] Family History Problem Relation Age of Onset JABARI disease Mother Heart attack Father Family Status - Relation Status Age at Mother Father [facility] 36on 08-21-2023 36 Any updates after he r neuro appt? [facility] 36on 08-18-2023 36 Regarding echo performed on 08/14/2023: Niraj San, SHANDRA Medina MA Please let her know her labs show normal kidney function and blood counts. Her ECHO shows her the fluid around her heart has improved, only a small amount. Awaiting to hear from her neurology appt on 08/18 if okay to proceed with cardiac cath. Thanks! LM on patient's VM. [facility] Telephoneon 08-18-2023 Telephone [id number] Laura Lawson 1950 Date Provider Department Center 08/18/2023 NIRAJ COOPER Family History Problem Relation Age of Onset JABARI disease Mother Heart attack Father Family Status - Relation Status Age at Mother Father [facility] 37on 07-31-2023 37 *Your recent heart [...] 80mg daily *Follow-up after heart cath procedure [facility] Office Visiton 07-31-2023 Follow-up visit [id number] Laura Lawson 1950 Date Provider Department Center 07/31/2023 NIRAJ COOPER Family History Problem Relation Age of Onset JABARI disease Mother Heart attack Father Family Status - Relation Status Age at Mother Father Level of Service:77731 [place] OFFICE/OUTPATIENT ESTABLISHED HIGH MDM 40 MIN Reason for Visit and Comments: Congestive Heart Failure [127] Hypertension [136168] [facility] 36on 07-24-2023 36 Regarding echo performed [...] scheduled to see you next week, 07/31. [facility] 36 Patient has acute systolic heart failure and she will need a cardiac cath. Can we please find out when she will be seeing neurology as we will need clearance from them before proceeding. Thank you! [facility] Telephoneon 07-24-2023 Telephone [id number] Laura Lawson A 1950 Date Provider Department Center 07/24/[address] [facility] Family History Problem Relation Age of Onset JABARI disease Mother Heart attack Father Family Status - Relation Status Age at Mother Father [facility] Office Visiton 07-16-2023 Follow-up visit [id number] Laura Lawson A 1950 Date Provider Department Center 07/16/2023 NIRAJ COOPER [facility] Family History Problem Relation Age of Onset JABARI disease Mother Heart attack Father Family Status - Relation Status Age at Mother Father Level of Service:85428 [place] OFFICE/OUTPATIENT ESTABLISHED MOD MDM 30 MIN Reason for Visit and Comments: Hypertension [974245] [facility] 36on 07-08-2023 36 DC on 07/07/2022 Spoke to pts caregiver Latrice Piña reconciled with caregiver Pt is going to try to get follow up in next 7 days in [place] and will call to cancel her appt with [facility] cardiology. Will leave appt in place until pt confirms [facility] Documentationon 07-08-2023 Documentation [id number] Laura Lawson A 1950 Provider Department Center 07/08/2023 [id number] BUENO [facility] Family History Problem Relation Age of Onset JABARI disease Mother Heart attack Father Family Status - Relation Status Age at Mother Father Reason for Visit and Comments: HF inpatient satisfaction survey sent. [Other] [facility] Telephoneon 07-08-2023 Telephone [id number] Laura Lawson A 1950 Date Provider Department Center 07/08/2023 2486-[facility]S [facility] [place] [facility] Family History Problem Relation Age of Onset JABARI disease Mother Heart attack Father Family Status - Relation Status Age at Mother Father Reason for Visit and Comments: hospital DC follow up call [Other] Normal [facility] 30on 07-07-2023 30 The patient is Moderately Stable - Low risk of patient condition declining or worsening The patient's goals for the shift include comfort The clinical goals for the shift include VSS Over the shift, the patient did make progress toward the following goals. Due to patient being covid+ and needing to stay in isolation until 2/5 due to policy, neurology stated patient can [...] oxygen saturation or arterial blood gases Normal [facility] POCT GLUCOSE METER UNSOLICIT ED RESULTSon 07-07-2023 Glucose [Mass/Vol] 213 mg/dL High 70-105 [facility] Comment on above: Order Comment: Waive d Testing in the ED is performed under the ED CLIA certificate #[id number]. Result Comment: [email or web address] Performed By: #### L [id number] #### [facility] ([facility]ER) [address] [place] [address] Glucose [Mass/Vol] 91 mg/dL Normal 70-105 [facility] Comment on above: Order Comment: Waive d Testing in the ED is performed under the ED CLIA certificate #[id number]. Result Comment: [email or web address] Performed By: #### L [id number] ####[facility] ([facility])[address] [place] [address] 30on 07-06-2023 30 The patient is Moderately [...] comfort level Outcome: Adequate for Discharge Normal [facility] 30 The patient is Moderately Stable - Low risk of patient condition declining or worsening The patient's goals for the shift include comfort The clinical goals for the shift include VSS, control blood sugar Over the shift, the patient did make progress toward the following goals. Problem: Respiratory - Adult Goal: Achieves optimal ventilation and oxygenation Outcome: Progressing Flowsheets (Taken 07/06/2023 4184) Achieves optimal ventilation and oxygenation: Assess for changes in respiratory status Assess for changes in mentation and behavior Position to facilitate oxygenation and minimize respiratory effort Respiratory therapy support as indicated Assess and instruct to report shortness of breath or any respiratory difficulty Oxygen supplementation based on oxygen saturation or arterial blood gases Normal [facility] 30 The patient is Moderately Stable - [...] safest level of function Outcome: Progressing Normal [facility] BASIC METABOLIC PANELon 06-10 Anion gap [Moles/Vol] 8 mmol/L Normal 7-20 [facility] Comment on above: Performed By: #### L [id number] #### [facility] ([facility]) [address] [place] [address] Calcium [Mass/Vol] 8.9 mg/dL Normal 8.6-10.3 [facility] Comment on above: Performed By: #### L [id number] #### [facility] ([facility]) [address] [place] [address] Chloride [Moles/Vol] 101 mmol/L Normal 98-107 [facility] Comment on above: Performed By: #### L [id number] #### [facility] ([facility]) [address] [place] [address] CO2 [Moles/Vol] 28 mmol/L Normal 21-31 [facility] Comment on above: Performed By: #### L [id number] #### [facility] ([facility]) [address] [place] [address] Creatinine [Mass/Vol] 0.95 mg/dL Normal 0.60-1.20 [facility] Comment on above: Performed By: #### L [id number] #### [facility] ([facility]) [address] [place] [address] GLOMERULAR FILTRATION RATE ML/MIN/1.73 SQ M.PREDICTED 64.5 mL/min/1.73m*2 Normal >60.0 [facility] Comment on above: Result Comment: The [facility]???s estimated glomerular filtration rate (eGFR) will no [...] group of individuals. Performed By: #### L [id number] #### [facility] ([facility]) [address] [place] [address] Glucose [Mass/Vol] 164 mg/dL High 70-100 [facility] Comment on above: Performed By: #### L [id number] #### [facility] ([facility]) [address] [place] [address] Potassium [Moles/Vol] 3.7 mmol/L Normal 3.5-5.1 [facility] Comment on above: Performed By: #### L [id number] #### [facility] ([facility]) [address] [place] [address] Sodium [Moles/Vol] 133 mmol/L Low 136-145 [facility] Comment on above: Performed By: #### L [id number] #### [facility] ([facility]) [address] [place] [address] Urea nitrogen [Mass/Vol] 23 mg/dL Normal 7-25 [facility] Comment on above: Performed By: #### L [id number] #### [facility] ([facility]) [address] [place] [address] UREA NITROGEN/CREATININE (MASS RATIO) IN SER/PLAS 24.2 Normal [facility] Comment on above: Performed By: #### L [id number] #### [facility] ([facility]) [address] [place] [address] MAGNESIUMon 07-06-2023 Magnesium [Mass/Vol] 2.0 mg/dL Normal 1.9-2.7 [facility] Comment on above: Performed By: #### L [id number] ####[facility] ([facility])[address] [place] [address] POCT GLUCOSE METER UNSOLICIT ED RESULTSon 07-06-2023 Glucose [Mass/Vol] 203 mg/dL High 70-105 [facility] Comment on above: Order Comment: Waive d Testing in the ED is performed under the ED CLIA certificate #[id number]. Result Comment: [email or web address] Performed By: #### L [id number] #### [facility] ([facility]) [address] [place] [address] Glucose [Mass/Vol] 286 mg/dL High 70-105 [facility] Comment on above: Order Comment: Waive d Testing in the ED is performed under the ED CLIA certificate #[id number]. Result Comment: [email or web address] Performed By: #### L [id number] ####[facility] ([facility])[address] [place] [address] Glucose [Mass/Vol] 267 mg/dL High 70-105 [facility] Comment on above: Order Comment: Waive d Testing in the ED is performed under the ED CLIA certificate #[id number]. Result Comment: [email or web address] Performed By: #### L [id number] ####[facility] ([facility])[address] [place] [address] Glucose [Mass/Vol] 150 mg/dL High 70-105 [facility] Comment on above: Order Comment: Waive d Testing in the ED is performed under the ED CLIA certificate #[id number]. Result Comment: [email or web address] [email or web address] Performed By: #### L [id number] #### [facility] ([facility]) [address] [place] [address] 30on 07-05-2023 30 The patient is Moderately [...] the next 3 months Outcome: Progressing Normal [facility] 30 Problem: Pain - Adul t Goal: [...] make progress toward the following goals. Normal [facility] COMPREHENSIVE METABOLIC PANE Agus 07-05-2023 Albumin [Mass/Vol] 3.0 g/dL Low 3.5-5.7 [facility] Comment on above: Performed By: #### L [id number] #### [facility] ([facility]) [address] [place] [address] ALP [Catalytic activity/Vol] 82 U/L Normal 34-104 [facility] Comment on above: Performed By: #### L [id number] #### [facility] ([facility]) [address] [place] [address] ALT [Catalytic activity/Vol] 15 U/L Normal 7-52 [facility] Comment on above: Performed By: #### L [id number] #### [facility] ([facility]) [address] [place] [address] Anion gap [Moles/Vol] 10 mmol/L Normal 7-20 [facility] Comment on above: Performed By: #### L [id number] #### [facility] ([facility]) [address] [place] [address] AST [Catalytic activity/Vol] 20 U/L Normal 13-39 [facility] Comment on above: Performed By: #### L [id number] #### [facility] ([facility]) [address] [place] [address] Bilirubin [Mass/Vol] 1.0 mg/dL Normal 0.3-1.0 [facility] Comment on above: Performed By: #### L [id number] #### [facility] ([facility]) [address] [place] [address] Calcium [Mass/Vol] 9.1 mg/dL Normal 8.6-10.3 [facility] Comment on above: Performed By: #### L [id number] #### [facility] ([facility]) [address] [place] [address] Chloride [Moles/Vol] 100 mmol/L Normal 98-107 [facility] Comment on above: Performed By: #### L [id number] #### [facility] ([facility]) [address] [place] [address] CO2 [Moles/Vol] 27 mmol/L Normal 21-31 [facility] Comment on above: Performed By: #### L [id number] #### [facility] ([facility]) [address] [place] [address] Creatinine [Mass/Vol] 0.76 mg/dL Normal 0.60-1.20 [facility] Comment on above: Performed By: #### L [id number] #### [facility] ([facility]) [address] [place] [address] GLOMERULAR FILTRATION RATE ML/MIN/1.73 SQ M.PREDICTED 84.2 mL/min/1.73m*2 Normal >60.0 [facility] Comment on above: Result Comment: The [facility]???s estimated glomerular filtration rate (eGFR) will no [...] group of individuals. Performed By: #### L [id number] #### [facility] ([facility]) [address] [place] [address] Glucose [Mass/Vol] 87 mg/dL Normal 70-100 [facility] Comment on above: Performed By: #### L [id number] #### [facility] ([facility]) [address] [place] [address] Potassium [Moles/Vol] 3.4 mmol/L Low 3.5-5.1 [facility] Comment on above: Performed By: #### L [id number] #### [facility] ([facility]) [address] [place] [address] Protein [Mass/Vol] 4.9 g/dL Low 6.0-8.3 [facility] Comment on above: Performed By: #### L [id number] #### [facility] ([facility]) [address] [place] [address] Sodium [Moles/Vol] 134 mmol/L Low 136-145 [facility] Comment on above: Performed By: #### L [id number] #### [facility] ([facility]) [address] [place] [address] Urea nitrogen [Mass/Vol] 14 mg/dL Normal 7-25 [facility] Comment on above: Performed By: #### L [id number] #### [facility] ([facility]) [address] [place] [address] UREA NITROGEN/CREATININE (MASS RATIO) IN SER/PLAS 18.4 Normal [facility] Comment on above: Performed By: #### L [id number] #### [facility] ([facility]) [address] [place] [address] MAGNESIUMon 07-05-2023 Magnesium [Mass/Vol] 1.6 mg/dL Low 1.9-2.7 [facility] Comment on above: Performed By: #### L [id number] #### [facility] ([facility]) [address] [place] [address] POCT GLUCOSE METER UNSOLICIT ED RESULTSon 07-05-2023 Glucose [Mass/Vol] 238 mg/dL High 70-105 [facility] Comment on above: Order Comment: Waive d Testing in the ED is performed under the ED CLIA certificate #[id number]. Result Comment: [email or web address] Performed By: #### L [id number] #### [facility] ([facility]) [address] [place] [address] Glucose [Mass/Vol] 283 mg/dL High 70-105 [facility] Comment on above: Order Comment: Waive d Testing in the ED is performed under the ED CLIA certificate #[id number]. Result Comment: [email or web address] [email or web address] Performed By: #### L [id number] #### [facility] ([facility]) [address] [place] [address] Glucose [Mass/Vol] 141 mg/dL High 70-105 [facility] Comment on above: Order Comment: Waive d Testing in the ED is performed under the ED CLIA certificate #[id number]. Result Comment: [email or web address] Performed By: #### L [id number] #### [facility] ([facility]) [address] [place] [address] Glucose [Mass/Vol] 103 mg/dL Normal 70-105 [facility] Comment on above: Order Comment: Waive d Testing in the ED is performed under the ED CLIA certificate #[id number]. Result Comment: [email or web address] [email or web address] Performed By: #### L [id number] #### [facility] ([facility]) [address] [place] [address] Glucose [Mass/Vol] 87 mg/dL Normal 70-105 [facility] Comment on above: Order Comment: Waive d Testing in the ED is performed under the ED CLIA certificate #[id number]. Result Comment: [email or web address] Performed By: #### L [id number] #### [facility] ([facility]) [address] [place] [address] Glucose [Mass/Vol] 71 mg/dL Normal 70-105 [facility] Comment on above: Order Comment: Waive d Testing in the ED is performed under the ED CLIA certificate #[id number]. Result Comment: [email or web address] [email or web address] Performed By: #### L [id number] #### [facility] ([facility]) [address] [place] [address] 30on 07-04-2023 30 Daily Case Managemen t [...] Health Types of Home Health Service needed [facility] Please indicate your approval for this care by adding your name here: ANGELIKA SANTOS 07/04/23 1216 07/02/23 2347 Inpatient consult to Social Work Once Provider: (Not yet assigned) Question Answer Comment Is discharge planning needed? If yes, who is requesting discharge planning? Provider Select all services needed for the patient [facility] (30 day convalescent stay) Please indicate your approval for this care by adding your name here: IVORY GARRETT 07/02/23 4511 Therapy Orders (From admission, onward) Start Ordered 07/04/23 1215 [employer] Bedside Swallow Eval and Treat (to determine safe diet level) Until therapy completed Comments: Bedside dysphagia screening exam Question Answer Comment Reason for [employer] Consult? Dysphagia (swallowing, poor intake) Reason for [employer] Consult? Speech/language cognition Speech/language focus: Aphasia Speech/language focus: Dysarthria Can patient sit upright? Yes Does patient have a tracheostomy? No 07/04/23 1216 07/04/23 1215 [employer] eval and treat Until therapy completed Question Answer Comment Reason for [employer] Consult? Speech/language cognition Speech/language focus: Aphasia Speech/language focus: Dysarthria 07/04/23 1216 07/04/23 1213 PT eval and treat Until therapy completed Question: Reason for PT? Answer: weakness 07/04/23 1216 07/04/23 1213 OT eval and treat Until therapy completed Question: Reason for OT? Answer: weakness 07/04/23 1216 Normal [facility] 30 The patient is Moderately Stable - Low risk of patient condition declining or worsening The patient's goals for the shift include comfort The clinical goals for the shift include VSS Over the shift, the patient did not make progress toward the following goals. Barriers to progression include na. Recommendations to address these barriers include na. [facility] 30 Problem: Pain - Adul t Goal: Verbalizes/displays adequate comfort level or baseline comfort level Outcome: Progressing Problem: Safety - Adult Goal: Free from fall injury Outcome: Progressing Flowsheets (Taken 07/03/20231999) Free from fall injury: Assess patient frequently for physical needs Identify cognitive and physical deficits and behaviors that affect risk of falls Home fall precautions as indicated by assessment The patient is Moderately Stable - Low risk of patient condition declining or worsening The patient's goals for the shift include comfort The clinical goals for the shift include VSS Over the shift, the patient did make progress toward the following goals. Normal [facility] COMPREHENSIVE METABOLIC PANE Agus 07-04-2023 Albumin [Mass/Vol] 3.0 g/dL Low 3.5-5.7 [facility] Comment on above: Performed By: #### L [id number] ####[facility] ([facility])[address] [place] [address] ALP [Catalytic activity/Vol] 74 U/L Normal 34-104 [facility] Comment on above: Performed By: #### L [id number] ####[facility] ([facility])[address] [place] [address] ALT [Catalytic activity/Vol] 19 U/L Normal 7-52 [facility] Comment on above: Performed By: #### L [id number] ####[facility] ([facility])[address] [place] [address] Anion gap [Moles/Vol] 6 mmol/L Low 7-20 [facility] Comment on above: Performed By: #### L [id number] ####[facility] ([facility])[address] [place] [address] AST [Catalytic activity/Vol] 17 U/L Normal 13-39 [facility] Comment on above: Performed By: #### L [id number] ####[facility] ([facility])[address] [place] [address] Bilirubin [Mass/Vol] 0.8 mg/dL Normal 0.3-1.0 [facility] Comment on above: Performed By: #### L [id number] ####[facility] ([facility])[address] [place] [address] Calcium [Mass/Vol] 9.4 mg/dL Normal 8.6-10.3 [facility] Comment on above: Performed By: #### L [id number] ####[facility] ([facility])[address] [place] [address] Chloride [Moles/Vol] 103 mmol/L Normal 98-107 [facility] Comment on above: Performed By: #### L [id number] ####[facility] ([facility])[address] [place] [address] CO2 [Moles/Vol] 30 mmol/L Normal 21-31 [facility] Comment on above: Performed By: #### L [id number] ####[facility] ([facility])[address] [place] [address] Creatinine [Mass/Vol] 0.65 mg/dL Normal 0.60-1.20 [facility] Comment on above: Performed By: #### L [id number] ####[facility] ([facility])[address] [place] [address] GLOMERULAR FILTRATION RATE ML/MIN/1.73 SQ M.PREDICTED 94.7 mL/min/1.73m*2 Normal >60.0 [facility] Comment on above: Result Comment: The [facility]???s estimated glomerular filtration rate (eGFR) will no [...] of individuals. Performed By: #### L [id number] ####[facility] ([facility])[address] [place] [address] Glucose [Mass/Vol] 69 mg/dL Low 70-100 [facility] Comment on above: Performed By: #### L [id number] ####[facility] ([facility])[address] [place] [address] Potassium [Moles/Vol] 3.2 mmol/L Low 3.5-5.1 [facility] Comment on above: Performed By: #### L [id number] ####[facility] ([facility])[address] [place] [address] Protein [Mass/Vol] 5.0 g/dL Low 6.0-8.3 [facility] Comment on above: Performed By: #### L [id number] ####[facility] ([facility])[address] [place] [address] Sodium [Moles/Vol] 136 mmol/L Normal 136-145 [facility] Comment on above: Performed By: #### L [id number] ####[facility] ([facility])[address] [place] [address] Urea nitrogen [Mass/Vol] 17 mg/dL Normal 7-25 [facility] Comment on above: Performed By: #### L [id number] ####[facility] ([facility])[address] [place] [address] UREA NITROGEN/CREATININE (MASS RATIO) IN SER/PLAS 26.2 Normal [facility] Comment on above: Performed By: #### L [id number] ####[facility] ([facility])[address] [place] [address] CONSULTon 07-04-2023 CONSULT --- Attestation signed by [...] acute heart failure exacerbation and COVID-positive at [facility]. Patient stated that she has not [...] NSTEMI and congestive heart failure exacerbation. At [facility], BNP greater than 2717. Troponin 0.12-->0.10. On [...] history of Coronary artery disease, Diabetes mellitus ([facility]/HCC), Gout, Hypertension, and Sleep apnea. Surgical History [...] -- 69 -- -- -- -- 07/03/23 08 -- -- -- 78 20 94 % -- -- 07/03/23 0536 -- -- -- -- -- -- -- 113 kg (248 lb 3.8 oz) 07/03/23 0400 142/68 -- -- 66 12 93 % -- -- 07/03/23 0311 131/62 -- -- 75 25 94 % -- -- 07/03/23 0204 (!) 183/87 -- -- (more content not included)... Normal [facility] CONSULT --- Attestation signed by Elliott Clements MD at 07/07/2023 10:47 PM Attending note: IMarcus M.D., personally performed the face to face diagnostic evaluation on this patient. I have reviewed the YOVANY's History, Exam, and MDM and agree with the assessment and plan as written Reason For Consult Stroke alert due to aphasia and dysarthria Referring Provider: 3A RNs History Of Present Illness Laura Lawson is an 72 y.o. female who came from [place] ED with N-STEMI, acute CHF exacerbation, KJ, covid positive obesity and CAD with 4 stents. Plavix stopped in August 2022. Cardiology is treating Pt for CHF exacerbation. Patient endorses chronic SOB but reports worsening prior to arrival to [place] ED. Was given Lasix 40 mg IV while at [facility]. +covid-19. Chest X-ray showed cardiomegaly with vascular [...] mg oral Daily 81 mg at 07/04/23 0902 atorvastatin 80 mg oral Nightly 80 mg at 07/03/23 2145 carvedilol 6.25 mg oral BID 6.25 mg at 07/04/23 09 dapagliflozin propanediol 10 mg oral Daily 10 mg at 07/04/23 09 glucose 24 g oral q15 min PRN Or dextrose 50 % in water (D50W) 25 g intravenous q15 min PRN furosemide 40 mg intravenous Daily 40 mg at 07/04/23 0905 heparin (porcine) 5,000 Units subcutaneous q12h FRANNY 5,000 Units at 07/04/23 0902 hydrALAZINE 100 mg oral TID 100 mg [...] negative INTEGUMENT/DEIRDRE (more content not included)... Normal [facility] CT HEAD WO IV CONTRASTon CT HEAD [...] lobe medially aerated IMPRESSION: Mild atrophy and spad-hn-rcjxtxcb chronic ischemic changes with no large acute [...] conditions/characterist ics Electronically signed: Chuck Mendoza. Normal [facility] CTA HEAD W AND WO IV CONTRAS [...] the distal vertebral artery bilaterally There is jbxw-sd-kaeezdye calcification in the distal left vertebral artery [...] out neoplasm Electronically signed: Chuck Mendoza. Normal [facility] CTA NECK W AND WO IV CONTRAS [...] viewed on a separate workstation. The [place] Symptomatic Carotid Endarterectomy Trial (NASCET) method for [...] reasonably achievable Electronically signed: Otto Mas. Normal [facility] MR BRAIN WO CONTRASTon 07-04 MR BRAIN [...] to chronic microvascular ischemic change. Approved by:Sebas [place]07/04/2023 11:19 PM. I, Fortunato Milan,have reviewed the image(s) and agree with the findings in this report. Electronically signed: Fortunato Milan. Normal [facility] POCT GLUCOSE METER UNSOLICIT ED RESULTSon 07-04-2023 Glucose [Mass/Vol] 186 mg/dL High 70-105 [facility] Comment on above: Order Comment: Waive d Testing in the ED is performed under the ED CLIA certificate #[id number]. Result Comment: [email or web address] Performed By: #### L [id number] #### [facility] ([facility]) [address] [place] [address] Glucose [Mass/Vol] 69 mg/dL Low 70-105 [facility] Comment on above: Order Comment: Waive d Testing in the ED is performed under the ED CLIA certificate #[id number]. Result Comment: [email or web address] Performed By: #### L [id number] ####[facility] ([facility])[address] [place] [address] Glucose [Mass/Vol] 71 mg/dL Normal 70-105 [facility] Comment on above: Order Comment: Waive d Testing in the ED is performed under the ED CLIA certificate #[id number]. Result Comment: [email or web address] Performed By: #### L [id number] ####[facility] ([facility])[address] [place] [address] Glucose [Mass/Vol] 83 mg/dL Normal 70-105 [facility] Comment on above: Order Comment: Waive d Testing in the ED is performed under the ED CLIA certificate #[id number]. Result Comment: [email or web address] Performed By: #### L [id number] ####[facility] ([facility])[address] [place] [address] Glucose [Mass/Vol] 76 mg/dL Normal 70-105 [facility] Comment on above: Order Comment: Waive d Testing in the ED is performed under the ED CLIA certificate #[id number]. Result Comment: [email or web address] Performed By: #### L [id number] ####[facility] ([facility])[address] [place] [address] TROPONIN Ion 07-04-2023 Troponin I.cardiac [Mass/Vol] 0.10 ng/mL High 0.00-0.04 [facility] Comment on above: Performed By: #### L [id number] ####[facility] ([facility])[address] [place] [address] 30on 07-03-2023 30 Daily Case Managemen t [...] Select all services needed for the patient [facility] (30 day convalescent stay) Please indicate your approval for this care by adding your name here: IVORY GARRETT 07/02/237 07/02/232346 Consult to Nutrition Services Once Provider: (Not yet assigned) Question: Reason for Consult? Answer: NSTEMI/CHF 07/02/232356 Normal [facility] 30 The patient is Moderately Stable - Low risk of patient condition declining or worsening The patient's goals for the shift include COMFORT The clinical goals for the shift include VSS Over the shift, the patient did not make progress toward the following goals. Barriers to progression include na. Recommendations to address these barriers include na. Normal [facility] 30 The patient is Moderately Stable - Low risk of patient condition declining or worsening The patient's goals for the shift include COMFORT The clinical goals for the shift include VSS Normal [facility] B-TYPE NATRIURETIC PEPTIDEon 07-03-2023 Natriuretic peptide B (Bld) [Mass/Vol] 2717 pg/mL High 0-100 [facility] Comment on above: Performed By: #### L [id number] #### [facility] ([employer]) [address] [place] [address] CBC WITH AUTO DIFFERENTIALon 07-03-2023 Basophils (Bld) [#/Vol] 0.06 10*3/uL Normal 0.00-0.20 [facility] Comment on above: Performed By: #### L [id number] ####[facility] ([employer])[address] [place] [address] Basophils/100 WBC (Bld) 0.7 % Normal 0.0-1.0 [facility] Comment on above: Performed By: #### L [id number] ####[facility] ([facility])[address] [place] [address] Eosinophils (Bld) [#/Vol] 0.08 10*3/uL Normal 0.00-0.50 [facility] Comment on above: Performed By: #### L [id number] ####[facility] ([facility])[address] [place] [address] Eosinophils/100 WBC (Bld) 0.9 % Normal 0.0-6.0 [facility] Comment on above: Performed By: #### L [id number] ####[facility] ([facility])[address] [place] [address] Erythrocyte distribution width (RBC) [Ratio] 15.1 % High 11.5-15.0 [facility] Comment on above: Performed By: #### L [id number] ####[facility] ([facility])[address] [place] [address] ERYTHROCYTE MEAN CORPUSCULAR HEMOGLOBIN CONCENTRATION (G/DL) BY AUTOMATED 31.9 g/dL Low 32.0-35.0 [facility] Comment on above: Performed By: #### L [id number] ####[facility] ([facility])[address] [place] [address] Hematocrit (Bld) [Volume fraction] 39.8 % Normal 36.0-48.0 [facility] Comment on above: Performed By: #### L [id number] ####[facility] ([facility])[address] [place] [address] Hemoglobin (Bld) [Mass/Vol] 12.7 g/dL Normal 12.0-15.0 [facility] Comment on above: Performed By: #### L [id number] ####[facility] ([facility])[address] [place] [address] Immature granulocytes (Bld) [#/Vol] 0.03 10*3/uL Normal 0.00-0.20 [facility] Comment on above: Performed By: #### L [id number] ####[facility] ([facility])[address] [place] [address] Immature granulocytes/100 WBC (Bld) 0.3 % Normal 0.0-1.0 [facility] Comment on above: Performed By: #### L [id number] ####[facility] ([facility])[address] [place] [address] Lymphocytes (Bld) [#/Vol] 1.52 10*3/uL Normal 1.20-4.00 [facility] Comment on above: Performed By: #### L [id number] ####[facility] ([facility])[address] [place] [address] Lymphocytes/100 WBC (Bld) 17.6 % Low 20.0-45.0 [facility] Comment on above: Performed By: #### L [id number] ####[facility] ([facility])[address] [place] [address] MCH (RBC) [Entitic mass] 29.3 pg Normal 27.0-33.0 [facility] Comment on above: Performed By: #### L [id number] ####[facility] ([facility])[address] [place] [address] MCV (RBC) [Entitic vol] 91.9 fL Normal 82.0-98.0 [facility] Comment on above: Performed By: #### L [id number] ####[facility] ([facility])[address] [place] [address] Monocytes (Bld) [#/Vol] 1.20 10*3/uL High 0.10-1.00 [facility] Comment on above: Performed By: #### L [id number] ####[facility] ([facility])[address] [place] [address] Monocytes/100 WBC (Bld) 13.9 % High 5.0-12.0 [facility] Comment on above: Performed By: #### L [id number] ####[facility] ([facility])[address] [place] [address] Neutrophils (Bld) [#/Vol] 5.75 10*3/uL Normal 1.60-7.60 [facility] Comment on above: Performed By: #### L [id number] ####[facility] ([facility])[address] [place] [address] Neutrophils/100 WBC (Bld) 66.6 % Normal 40.0-72.0 [facility] Comment on above: Performed By: #### L [id number] ####[facility] ([facility])[address] [place] [address] NRBC (PER 100 WBCS) BY AUTOMATED COUNT 0.0 % Normal 0 [facility] Comment on above: Performed By: #### L [id number] ####[facility] ([facility])[address] [place] [address] PLATELETS (10*3/UL) IN BLOOD AUTOMATED COUNT 354 10*3/uL Normal 150-400 [facility] Comment on above: Performed By: #### L [id number] ####[facility] ([facility])[address] [place] [address] RBC (Bld) [#/Vol] 4.33 10*6/uL Normal 3.80-5.00 [facility] Comment on above: Performed By: #### L [id number] ####[facility] ([facility])[address] [place] [address] WBC (Bld) [#/Vol] 8.64 10*3/uL Normal 4.00-10.60 [facility] Comment on above: Performed By: #### L [id number] ####[facility] ([facility])[address] [place] [address] COMPREHENSIVE METABOLIC PANE Agus 07-03-2023 Albumin [Mass/Vol] 3.5 g/dL Normal 3.5-5.7 [facility] Comment on above: Performed By: #### L [id number] #### [facility] ([facility]) [address] [place] [address] ALP [Catalytic activity/Vol] 102 U/L Normal 34-104 [facility] Comment on above: Performed By: #### L [id number] #### [facility] ([facility]) [address] [place] [address] ALT [Catalytic activity/Vol] 24 U/L Normal 7-52 [facility] Comment on above: Performed By: #### L [id number] #### [facility] ([facility]) [address] [place] [address] Anion gap [Moles/Vol] 13 mmol/L Normal 7-20 [facility] Comment on above: Performed By: #### L [id number] #### [facility] ([facility]) [address] [place] [address] AST [Catalytic activity/Vol] 23 U/L Normal 13-39 [facility] Comment on above: Performed By: #### L [id number] #### [facility] ([facility]) [address] [place] [address] Bilirubin [Mass/Vol] 1.2 mg/dL High 0.3-1.0 [facility] Comment on above: Performed By: #### L [id number] #### [facility] ([facility]) [address] [place] [address] Calcium [Mass/Vol] 9.4 mg/dL Normal 8.6-10.3 [facility] Comment on above: Performed By: #### L [id number] #### [facility] ([facility]) [address] [place] [address] Chloride [Moles/Vol] 98 mmol/L Normal 98-107 [facility] Comment on above: Performed By: #### L [id number] #### [facility] ([facility]) [address] [place] [address] CO2 [Moles/Vol] 27 mmol/L Normal 21-31 [facility] Comment on above: Performed By: #### L [id number] #### [facility] ([facility]) [address] [place] [address] Creatinine [Mass/Vol] 0.71 mg/dL Normal 0.60-1.20 [facility] Comment on above: Performed By: #### L [id number] #### [facility] ([facility]) [address] [place] [address] GLOMERULAR FILTRATION RATE ML/MIN/1.73 SQ M.PREDICTED 91.4 mL/min/1.73m*2 Normal >60.0 [facility] Comment on above: Result Comment: The [facility]???s estimated glomerular filtration rate (eGFR) will no [...] individuals. Performed By: #### L [id number] #### [facility] ([facility]) [address] [place] [address] Glucose [Mass/Vol] 323 mg/dL High 70-100 [facility] Comment on above: Performed By: #### L [id number] #### [facility] ([facility]) [address] [place] [address] Potassium [Moles/Vol] 3.6 mmol/L Normal 3.5-5.1 [facility] Comment on above: Performed By: #### L [id number] #### [facility] ([facility]) [address] [place] [address] Protein [Mass/Vol] 6.0 g/dL Normal 6.0-8.3 [facility] Comment on above: Performed By: #### L [id number] #### [facility] ([facility]) [address] [place] [address] Sodium [Moles/Vol] 134 mmol/L Low 136-145 [facility] Comment on above: Performed By: #### L [id number] #### [facility] ([facility]) [address] [place] [address] Urea nitrogen [Mass/Vol] 11 mg/dL Normal 7-25 [facility] Comment on above: Performed By: #### L [id number] #### [facility] ([facility]) [address] [place] [place] [address] UREA NITROGEN/CREATININE (MASS RATIO) IN SER/PLAS 15.5 Normal [facility] Comment on above: Performed By: #### L [id number] #### [facility] ([facility]) [address] [place] [address] HEMOGLOBIN A1Con 07-03-2023 Glucose [Mass/Vol] 263 mg/dL Normal [facility] Comment on above: Performed By: #### L [id number] #### [facility] ([facility]) [address] [place] [address] HbA1c (Bld) [Mass fraction] 10.8 % High 4.0-6.0 [facility] Comment on above: Performed By: #### L [id number] #### [facility] ([facility]) [address] [place] [address] LIPID PANELon 07-03-2023 CHOL/HDL 2.7 mg/dL Normal [facility] Comment on above: Performed By: #### L [id number] #### [facility] ([facility]) [address] [place] [address] Cholesterol [Mass/Vol] 170 mg/dL Normal 120-200 [facility] Comment on above: Performed By: #### L [id number] #### [facility] ([facility]) [address] [place] [address] Magnesium [Mass/Vol] 105 mg/dL Normal 40-149 [facility] Comment on above: Result Comment: TRIG LYCERIDE REFERENCE RANGE: 20 YEARS AND OLDER CARDIOVASCULAR RISK LESS THAN 150 mg/dL LOW RISK 150 TO 199 mg/dL BORDERLINE RISK 200 mg/dL AND GREATER HIGH RISK Performed By: #### L [id number] #### [facility] ([facility]) [address] [place] [address] Magnesium [Mass/Vol] 87 mg/dL Normal 0-160 [facility] Comment on above: Performed By: #### L [id number] #### [facility] ([facility]) [address] [place] [address] Magnesium [Mass/Vol] 62 mg/dL Normal 23-92 [facility] Comment on above: Performed By: #### L [id number] #### [facility] ([facility]) [address] [place] [address] NON HDL CHOL. (LDL+VLDL) 108 Normal [facility] Comment on above: Performed By: #### L [id number] #### [facility] ([facility]) [address] [place] [address] TOTAL VLDL-C 21 mg/dL Normal 0-40 [facility] Comment on above: Performed By: #### L [id number] #### [facility] ([facility]) [address] [place] [address] MAGNESIUMon 07-03-2023 Magnesium [Mass/Vol] 1.9 mg/dL Normal 1.9-2.7 [facility] Comment on above: Performed By: #### L [id number] ####[facility] ([facility])[address] [place] [address] Magnesium [Mass/Vol] 1.4 mg/dL Low 1.9-2.7 [facility] Comment on above: Performed By: #### L [id number] #### [facility] ([facility]) [address] [place] [address] NURSNOTEon 07-03-2023 NURSNOTE Covid swabbed patien t twice, both tests resulted in negative results. KENDALL Ford informed. Results entered in computer. Normal [facility] PHOSPHORUSon 07-03-2023 Magnesium [Mass/Vol] 2.7 mg/dL Normal 2.5-5.0 [facility] Comment on above: Performed By: #### L [id number] ####[facility] ([facility])[address] [place] [address] POCT GLUCOSE METER UNSOLICIT ED RESULTSon 07-03-2023 Glucose [Mass/Vol] 116 mg/dL High 70-105 [facility] Comment on above: Order Comment: Waive d Testing in the ED is performed under the ED CLIA certificate #[id number]. Result Comment: [email or web address] Performed By: #### L [id number] ####[facility] ([facility])[address] [place] [address] Glucose [Mass/Vol] 188 mg/dL High 70-105 [facility] Comment on above: Order Comment: Waive d Testing in the ED is performed under the ED CLIA certificate #[id number]. Result Comment: [email or web address] Performed By: #### L [id number] ####[facility] ([facility])[address] [place] [address] Glucose [Mass/Vol] 260 mg/dL High 70-105 [facility] Comment on above: Order Comment: Waive d Testing in the ED is performed under the ED CLIA certificate #[id number]. Result Comment: [email or web address] Performed By: #### L [id number] #### [facility] ([facility]) [address] [place] [address] Glucose [Mass/Vol] 425 mg/dL High 70-105 [facility] Comment on above: Order Comment: Waive d Testing in the ED is performed under the ED CLIA certificate #[id number]. Result Comment: [email or web address] Performed By: #### L [id number] #### [facility] ([facility]) [address] [place] [address] PROGRESSon 07-03-2023 SARS-CoV-2 (COVID-19) RNA GUS+probe Ql [...] for CR with NSTEMI dx. 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 Cardiopulmonary Rehab Normal [facility] TROPONIN Ion 07-03-2023 Troponin I.cardiac [Mass/Vol] 0.12 ng/mL Critically high 0.00-0.04 [facility] Comment on above: Result Comment: M-TR OPONIN INITIAL CRITICAL HIGH; RESPUN AND RETESTED Performed By: #### L [id number] ####[facility] ([facility])[address] [place] [address] 30on 07-02-2023 30 The patient is Moderately Stable - Low risk of patient condition declining or worsening The patient's goals for the shift include COMFORT The clinical goals for the shift include VSS Normal [facility] XR lumbar spine AP/LAT/FLX/E XTon 03-13-2023 XR lumbar spine AP/LAT/FLX/EXT [facility] [place] [address] XRay Report Signed Patient: Laura Lawson MR#: [id number] : 1950 Acct:[id number] Age/Sex: 72 / F ADM Date: 03/13/23 Loc: XD Room: Type: [facility] Attending Dr: Abner Roa MD Copies [...] Amaury Devlin M.D.03/13/2023 3:02 PM Dictation Location: [facility]--14 Transcribed By: [facility] 03/13/23 1502 Dictated By: Amaury Devlin DO 03/13/23 1500 Signed By: 03/13/23 1502 Normal [facility] Office Visiton 02-26-2023 Follow-up visit [id number] Laura Lawson 1950 F Date Provider Department Center 02/26/2023 DULCE SANCHEZ [facility] Family History Problem Relation Age of Onset JABARI disease Mother Heart attack Father Family Status - Relation Status Age at Mother Father Level of Service:61488 [place] OFFICE/OUTPATIENT ESTABLISHED MOD MDM 30-39 MIN Reason for Visit and Comments: Follow-up [551030] - 6 month Normal [facility] MG MAMM SCREEN 3D YANETH CADon 11-06-2022 MG MAMM SCREEN 3D YANETH CAD Patient: LAURA LAWSON Exam Date: 11/06/2022 : 1950 Gender:F Ordering : DR VLAD CESAR M.D. Admission #: [id number] Family : Order #: [id number] CLICK HERE TO VIEW EXAM RADIOLOGY REPORT [...] Treatments None Family Cancers None LOCATION: [facility] BREAST COMPOSITION: Scattered areas fibroglandular density. [...] Villanueva M.D. on 11/06/2022 at 16:56 Normal [facility] ECHOCARDIO M/2D COMPLETEon 1 07-18-2021 ECHOCARDIO M/2D COMPLETE Patient: LAURA LAWSON Exam Date: 05/17/2022 : 1950 Gender:F Ordering : DR VLAD CESAR M.D. Admission #: [id number] Family : DR JULITO ZENDEJAS M.D. Order #: [id number] CLICK HERE TO VIEW EXAM ECHOCARDIOGRAM REPORT [...] Zendejas M.D. on 05/17/2022 at 18:42 Normal [facility] CBC AUTO DIFFon 05-14-2022 BASO # 0.0 103/ul Normal 0.0-0.1 [facility] Comment on above: Performed By: #### C BC #### [facility] [address] [place] [address] Dr. Hieu Horvath Basophils/100 WBC (Bld) 0.5 % Normal 0.2-2.0 [facility] Comment on above: Performed By: #### C BC #### [facility] [address] [place] [address] Dr. Hieu Horvath EO # 0.2 103/ul Normal 0.0-0.7 [facility] Comment on above: Performed By: #### C BC #### [facility] [address] [place] [address] Dr. Hieu Horvath Eosinophils/100 WBC (Bld) 2.5 % Normal 0.9-7.0 [facility] Comment on above: Performed By: #### C BC #### [facility] [address] [place] [address] Dr. Hieu Horvath Erythrocyte distribution width (RBC) [Ratio] 14.0 % Normal 11.0-15.0 [facility] Comment on above: Performed By: #### C BC #### [facility] [address] [place] [address] Dr. Hieu Horvath Hematocrit (Bld) [Volume fraction] 35.5 % Critically low 36.0-48.0 [facility] Comment on above: Performed By: #### C BC #### [facility] [address] [place] [address] Dr. Hieu Horvath Hemoglobin (Bld) [Mass/Vol] 11.5 g/dL Critically low 12.0-16.0 [facility] Comment on above: Performed By: #### C BC #### [facility] [address] [place] [address] Dr. Hieu Horvath IG # 0.02 10e3/ul Normal 0.00-0.03 [facility] Comment on above: Performed By: #### C BC #### [facility] [address] [place] [address] Dr. Hieu Horvath IG % 0.2 % Normal 0.0-0.5 [facility] Comment on above: Performed By: #### C BC #### [facility] [address] [place] [address] Dr. Hieu Horvath LYMPH # 1.6 103/ul Normal 1.2-3.8 [facility] Comment on above: Performed By: #### C BC #### [facility] [address] [place] [address] Dr. Hieu Horvath Lymphocytes/100 WBC (Bld) 19.2 % Critically low 20.5-60.0 [facility] Comment on above: Performed By: #### C BC #### [facility] [address] [place] [address] Dr. Hieu Horvath MANUAL DIFF REQ NO Normal [facility] Comment on above: Performed By: #### C BC #### [facility] [address] [address] [address] Hieu Horvath MCH (RBC) [Entitic mass] 29.9 pg Normal 26.7-34.0 [facility] Comment on above: Performed By: #### C BC #### [facility] [address] [place] [address] Dr. Hieu Horvath MCHC (RBC) [Mass/Vol] 32.4 g/dL Normal 29.9-35.2 [facility] Comment on above: Performed By: #### C BC #### [facility] [address] [place] [address] Dr. Hieu Horvath MCV (RBC) [Entitic vol] 92.4 fL Normal 81.0-99.0 [facility] Comment on above: Performed By: #### C BC #### [facility] [address] [place] [address] Dr. Hieu Horvath MONO # 1.1 103/ul Critically high 0.3-0.8 [facility] Comment on above: Performed By: #### C BC #### [facility] [address] [place] [address] Dr. Hieu Horvath Monocytes/100 WBC (Bld) 12.4 % Critically high 1.7-12. 0 [facility] Comment on above: Performed By: #### C BC #### [facility] [address] [place] [address] Dr. Hieu Horvath NEUT # 5.6 103/ul Normal 1.4-6.5 [facility] Comment on above: Performed By: #### C BC #### [facility] [address] [place] [address] Dr. Hieu Horvath Neutrophils/100 WBC (Bld) 65.2 % Normal 43.0-75.0 [facility] Comment on above: Performed By: #### C BC #### [facility] [address] [place] [address] Dr. Hieu Horvath Platelet mean volume (Bld) [Entitic vol] 8.9 fL Critically low 9.5-13.5 [facility] Comment on above: Performed By: #### C BC #### [facility] [address] [place] [address] Dr. Hieu Horvath PLT 342 103/ul Normal 150-450 [facility] Comment on above: Performed By: #### C BC #### [facility] [address] [place] [address] Dr. Hieu Horvath RBC 3.84 106/ul Critically low 4.20-5.40 [facility] Comment on above: Performed By: #### C BC #### [facility] [address] [address] [address] Hieu Horvath WBC 8.5 103/ul Normal 4.0-11.0 [facility] Comment on above: Performed By: #### C BC #### [facility] [address] [place] [address] Dr. Hieu Horvath CULTURE BLOODon 05-14-2022 Microscopic examination of blood, culture Culture Observations: NO GROWTH AT 5 DAYS. Normal [facility] Comment on above: Performed By: #### B [id number] #### [facility] [address] [place] [address] Dr. Hieu Horvath Performed By: #### B [id number] #### [facility] [address] [place] [address] Dr. Hieu Horvath LACTATE/LACTIC ACIDon 2021 Lactate [Moles/Vol] 1.8 mmol/L Normal 0.4-1.9 [facility] Comment on above: Performed By: #### L ACT #### [facility] [address] [place] [address] Dr. Hieu Horvath PROF CHEM 8 (BAS METB)on Anion gap [Moles/Vol] 10.3 mmol/L Normal [facility] Comment on above: Performed By: #### B MP #### [facility] [address] [place] [address] Dr. Hieu Horvath Calcium [Mass/Vol] 9.8 mg/dL Normal 8.5-10.1 [facility] Comment on above: Performed By: #### B MP #### [facility] [address] [address] [address] Hieu Horvath Chloride [Moles/Vol] 95 mmol/L Critically low 98-107 [facility] Comment on above: Performed By: #### B MP #### [facility] [address] [address] [address] Hieu Horvath CO2 [Moles/Vol] 31.4 mmol/L Normal 21.0-32.0 [facility] Comment on above: Performed By: #### B MP #### [facility] [address] [address] [address] Hieu Horvath Creatinine [Mass/Vol] 1.13 mg/dL Critically high 0.55-1.02 [facility] Comment on above: Performed By: #### B MP #### [facility] [address] [address] [address] Hieu Horvath EGFR-AF BRITISH 58 mL/min/1.73m2 Critically low >=60 [facility] Comment on above: Performed By: #### B MP #### [facility] [address] [address] [address] Hieu Horvath EGFR-NON AF BRITISH 48 mL/min/1.73m2 Critically low >=60 [facility] Comment on above: Performed By: #### B MP #### [facility] [address] [address] [address] Hieu Horvath Glucose [Mass/Vol] 370 mg/dL Critically high 74-106 [facility] Comment on above: Performed By: #### B MP #### [facility] [address] [address] [address] Hieu Horvath Potassium [Moles/Vol] 3.7 mmol/L Normal 3.5-5.1 [facility] Comment on above: Performed By: #### B MP #### [facility] [address] [address] [address] Hieu Horvath Sodium [Moles/Vol] 133 mmol/L Critically low 136-145 [facility] Comment on above: Performed By: #### B MP #### [facility] [address] [place], [place] [address] Dr. Hieu Horvath Urea nitrogen [Mass/Vol] 29.0 mg/dL Critically high 7.0-18.0 [facility] Comment on above: Performed By: #### B MP #### [facility] [address] [place], [place] [address] Dr. Hieu Horvath Urea nitrogen/Creatinine [Mass ratio] 25.7 mg/mg Normal [facility] Comment on above: Performed By: #### B MP #### [facility] [address] [place], [place] [address] Dr. Hieu Horvath US JAKE DOP LEG [...] RUSSELL YATES Date: 2022-05-14 17:04 Normal [facility] Glucose Glucometer (BldC) [M ass/Vol]Ordered By: Chidi Bowen on 04-03-2022 Glucose [Mass/Vol] 187 mg/dL [facility] Comment on above: Random Glucose Refer ence Range is dependent on time and content of last meal. Glucose of more than 200 mg/dL in a nonstressed, ambulatory subject supports the diagnosis of Diabetes Mellitus. No Panel InformationOrdered By: Chidi Bowen on 04-03-2022 Bedside Glucose Comment Glu2: cleaned meter [facility] No Panel InformationOrdered By: Chidi Bowen on 03-28-2022 Bedside Glucose #[address]/kendall [facility] Glucose mean value [Mass/vol ume] in Blood Estimated from glycated hemoglobinOrdered By: Tuyet Burks on 03-24-2022 Average glucose Estimated from glycated hemoglobin (Bld) [Mass/Vol] 203 mg/dL [facility] Hemoglobin A1c percentageOrd ered By: Tuyet Burks on 03-24-2022 HbA1c (Bld) [Mass fraction] 8.7 % 4.3-5.6 [facility] Comment on above: Increased risk for d iabetes: 5.7 - 6.4diabetes: >6.4glycemic control for adults with diabetes: <7.0 Albumin [Mass/volume] in Ser um or PlasmaOrdered By: Chidi Bowen on 03-23-2022 Albumin [Mass/Vol] 2.9 g/dL 3.2-5.5 [facility] Basophils Auto (Bld) [#/Vol] Ordered By: Chidi Bowen on 03-23-2022 Basophils (Bld) [#/Vol] 0.0 10*3/uL 0.0-0.2 [facility] Basophils/100 WBC Auto (Bld) Ordered By: Chidi Bowen on 03-23-2022 Basophils/100 WBC (Bld) 0.4 % . [facility] Creatinine and Glomerular fi ltration rate.predicted panel (S/P/Bld)Ordered By: Chidi Bowen on 03-23-2022 Creatinine [Mass/Vol] 0.97 mg/dL 0.44-1.03 [facility] Eosinophils Auto (Bld) [#/Vo l]Ordered By: Chidi Bowen on 03-23-2022 Eosinophils (Bld) [#/Vol] 0.1 10*3/uL 0.0-0.45 [facility] Eosinophils/100 WBC Auto (Bl d)Ordered By: Chidi Bowen on 03-23-2022 Eosinophils/100 WBC (Bld) 1.1 % . [facility] Erythrocyte distribution wid th Auto (RBC) [Ratio]Ordered By: Chidi oBwen on 03-23-2022 Erythrocyte distribution width (RBC) [Ratio] 14.2 % 11.9-15.3 [facility] Estimated glomerular filtrat ion rate (GFR) non- AmericanOrdered By: Chidi Bowen on 03-23-2022 GFR/1.73 sq M.predicted among non-blacks MDRD (S/P/Bld) [Vol rate/Area] 57 mL/Min [facility] Globulin Calc (S) [Mass/Vol] Ordered By: Chidi Bowen on 03-23-2022 Globulin (S) [Mass/Vol] 2.7 g/dL [facility] Hematocrit Auto (Bld) [Volum e fraction]Ordered By: Chidi Bowen on 03-23-2022 Hematocrit (Bld) [Volume fraction] 33.0 % 34.0-46.4 [facility] Hemoglobin [Mass/volume] in BloodOrdered By: Chidi Bowen on 03-23-2022 Hemoglobin (Bld) [Mass/Vol] 10.9 g/dL 11.8-15.4 [facility] - Hematology and Cell countsOrdered By: Chidi Bowen on 03-23-2022 Nucleated RBC/100 WBC (Bld) [Ratio] 0.1 % 0-0.5 [facility] Leukocytes [#/volume] in Blo od by Automated countOrdered By: Chidi Bowen on 03-23-2022 WBC (Bld) [#/Vol] 12.0 10*3/uL 4.5-11.0 [facility] Lymphocytes Auto (Bld) [#/Vo l]Ordered By: Chidi Bowen on 03-23-2022 Lymphocytes (Bld) [#/Vol] 1.8 10*3/uL 1.00-4.8 [facility] Lymphocytes/100 WBC Auto (Bl d)Ordered By: Chidi Bowen on 03-23-2022 Lymphocytes/100 WBC (Bld) 15.0 % . [facility] MCH Auto (RBC) [Entitic mass ]Ordered By: Chidi Bowen on 03-23-2022 MCH (RBC) [Entitic mass] 30.3 pg 24.7-34.3 [facility] MCHC Auto (RBC) [Mass/Vol]Or dered By: Chidi Bowen on 03-23-2022 MCHC (RBC) [Mass/Vol] 33.2 g/dL 32.0-35.0 [facility] MCV Auto (RBC) [Entitic vol] Ordered By: Chidi Bowen on 03-23-2022 MCV (RBC) [Entitic vol] 91.4 fL 80-100 [facility] Monocytes Auto (Bld) [#/Vol] Ordered By: Chidi Bowen on 03-23-2022 Monocytes (Bld) [#/Vol] 1.2 10*3/uL 0.0-0.8 [facility] Monocytes/100 WBC Auto (Bld) Ordered By: Chidi Bowen on 03-23-2022 Monocytes/100 WBC (Bld) 9.8 % . [facility] Neutrophils Auto (Bld) [#/Vo l]Ordered By: Chidi Bowen on 03-23-2022 Neutrophils (Bld) [#/Vol] 8.9 10*3/uL 1.8-7.7 [facility] Neutrophils/100 WBC Auto (Bl d)Ordered By: Chidi Bowen on 03-23-2022 Neutrophils/100 WBC (Bld) 73.7 % . [facility] No Panel InformationOrdered By: Chidi Bowen on 03-23-2022 Estimated GFR () > 60 mL/Min [facility] Comment on above: GFR estimated refere nce range: According to KDOQI guidelines, <60 ml/min/1.73m2 is sufficient to diagnose a patient with chronic kidney disease. Pharmacy Creatinine Clearance (Chem 67.19 [facility] Platelet mean volume Auto (B ld) [Entitic vol]Ordered By: Chidi Bowen on 03-23-2022 Platelet mean volume (Bld) [Entitic vol] 7.3 fL 6.3-10.7 [facility] Platelets Auto (Bld) [#/Vol] Ordered By: Chidi Bowen on 03-23-2022 Platelets (Bld) [#/Vol] 309 10*3/uL 150-450 [facility] Protein [Mass/volume] in Ser um or PlasmaOrdered By: Chidi Bowen on 03-23-2022 Protein [Mass/Vol] 5.6 g/dL 6.1-7.9 [facility] RBC Auto (Bld) [#/Vol]Ordere d By: Chiid Bowen on 03-23-2022 RBC (Bld) [#/Vol] 3.61 10*6/uL 3.60-5.00 [facility] Serum or plasma alanine ng otransferase measurement without P-5'-P (enzymatic activiOrdered By: Chidi Bowen on 03-23-2022 ALT No additional P-5'-P [Catalytic activity/Vol] 28 U/L 1060 [facility] Serum or plasma albumin/glob ulin mass ratioOrdered By: Chidi Bowen on 03-23-2022 Albumin/Globulin [Mass ratio] 1.1 {ratio} [facility] Serum or plasma alkaline areli sphatase measurement (enzymatic activity/volume)Ordered By: Chidi Bowen on 03-23-2022 ALP [Catalytic activity/Vol] 57 U/L 32-92 [facility] Serum or plasma anion gap de terminationOrdered By: Chidi Bowen on 03-23-2022 Anion gap [Moles/Vol] 10.9 mmol/L 6.0-15.0 [facility] Serum or plasma aspartate am inotransferase measurement (enzymatic activity/volume)Ordered By: Cihdi Bowen on 03-23-2022 AST [Catalytic activity/Vol] 26 U/L 10 [facility] Serum or plasma calcium annabel urement (mass/volume)Ordered By: Chidi Bowen on 03-23-2022 Calcium [Mass/Vol] 10.0 mg/dL 8.2-10.2 [facility] Serum or plasma chloride meagan surement (moles/volume)Ordered By: Chidi Bowen on 03-23-2022 Chloride [Moles/Vol] 100 mmol/L 95-114 [facility] Serum or plasma glucose annabel urement (mass/volume)Ordered By: Chidi Bowen on 03-23-2022 Glucose [Mass/Vol] 101 mg/dL 70-100 [facility] Comment on above: ADA recommended refe rence rangeRandom Glucose Reference Range is dependent on time and content of last meal. Glucose of more than 200 mg/dL in a nonstressed, ambulatory subject supports the diagnosis of Diabetes Mellitus. Serum or plasma potassium me asurement (moles/volume)Ordered By: Chidi Bowen on 03-23-2022 Potassium [Moles/Vol] 3.6 mmol/L 3.5-5.1 [facility] Serum or plasma prealbumin m easurement (mass/volume)Ordered By: Chidi Bowen on 03-23-2022 Prealbumin [Mass/Vol] 16.4 mg/dL 18.0-38.0 [facility] Serum or plasma sodium measu rement (moles/volume)Ordered By: Chidi Bowen on 03-23-2022 Sodium [Moles/Vol] 137 mmol/L 136-146 [facility] Serum or plasma total biliru bin measurement (mass/volume)Ordered By: Chidi Bowen on 03-23-2022 Bilirubin [Mass/Vol] 0.6 mg/dL 0.3-1.2 [facility] Serum or plasma total carbon dioxide measurement (moles/volume)Ordered By: Chidi Bowen on 03-23-2022 CO2 [Moles/Vol] 29.7 mmol/L 22.0-30.0 [facility] Serum or plasma urea nitroge n measurement (mass/volume)Ordered By: Chidi Bowen on 03-23-2022 Urea nitrogen [Mass/Vol] 46 mg/dL 9-23 [facility] Glucose Glucometer (BldC) [M ass/Vol]Ordered By: Abner Roa on 03-22-2022 Glucose [Mass/Vol] 183 mg/dL [facility] Comment on above: Random Glucose Refer ence Range is dependent on time and content of last meal. Glucose of more than 200 mg/dL in a nonstressed, ambulatory subject supports the diagnosis of Diabetes Mellitus. No Panel InformationOrdered By: Abner Roa on 03-22-2022 Bedside Glucose Comment Glu2: cleaned meter [facility] COVID-19 Positive/NegativeOr dered By: Abner Roa on 03-20-2022 SARS-CoV-2 (COVID-19) N gene GUS+probe Ql (Resp) Negative Negative [facility] Comment on above: Testing for SARS-CoV -2 by RT-PCRThis test was developed and its performance characteristics determined by [employer] ([employer] and validated at the [facility]. This test has not been FDA [...] Bedside Glucose #2 Comment Will notify /kendall [facility] COVID-19 Positive/NegativeOr dered By: Abner Roa on 03-14-2022 SARS-CoV-2 (COVID-19) N gene GUS+probe Ql (Resp) Negative Negative [facility] Comment on above: Testing for SARS-CoV -2 by RT-PCRThis test was developed and its performance characteristics determined by [employer] ([employer]) and validated at the [facility]. This test has not been FDA [...] 03-05-2022 Basophils (Bld) [#/Vol] 0.0 10*3/uL 0.0-0.2 [facility] Basophils/100 WBC Auto (Bld) Ordered By: Abner Roa on 09-27-2022 Basophils/100 WBC (Bld) 0.4 % . [facility] Blood hemoglobin measurement (mass/volume)Ordered By: Abner Roa on 03-05-2022 Hemoglobin (Bld) [Mass/Vol] 11.8 g/dL 11.8-15.4 [facility] Blood leukocytes automated c ount (number/volume)Ordered By: Abner Roa on 03-05-2022 WBC (Bld) [#/Vol] 9.2 10*3/uL 4.5-11.0 [facility] Creatinine and Glomerular fi ltration rate.predicted panel (S/P/Bld)Ordered By: Abner Roa on 03-05-2022 Creatinine [Mass/Vol] 0.93 mg/dL 0.44-1.03 [facility] Eosinophils Auto (Bld) [#/Vo l]Ordered By: Abner Roa on 03-05-2022 Eosinophils (Bld) [#/Vol] 0.1 10*3/uL 0.0-0.45 [facility] Eosinophils/100 WBC Auto (Bl d)Ordered By: Abner Roa on 03-05-2022 Eosinophils/100 WBC (Bld) 1.4 % . [facility] Erythrocyte distribution wid th Auto (RBC) [Ratio]Ordered By: Abner Roa on 03-05-2022 Erythrocyte distribution width (RBC) [Ratio] 14.3 % 11.9-15.3 [facility] Estimated glomerular filtrat ion rate (GFR) non- AmericanOrdered By: Abner Roa on 03-05-2022 GFR/1.73 sq M.predicted among non-blacks MDRD (S/P/Bld) [Vol rate/Area] 60 mL/Min [facility] Hematocrit Auto (Bld) [Volum e fraction]Ordered By: Abner Roa on 03-05-2022 Hematocrit (Bld) [Volume fraction] 35.6 % 34.0-46.4 [facility] - Hematology and Cell countsOrdered By: Abner Roa on 03-05-2022 Nucleated RBC/100 WBC (Bld) [Ratio] 0.0 % 0-0.5 [facility] Lymphocytes Auto (Bld) [#/Vo l]Ordered By: Abner Roa on 03-05-2022 Lymphocytes (Bld) [#/Vol] 1.4 10*3/uL 1.00-4.8 [facility] Lymphocytes/100 WBC Auto (Bl d)Ordered By: Abner Roa on 03-05-2022 Lymphocytes/100 WBC (Bld) 15.4 % . [facility] MCH Auto (RBC) [Entitic mass ]Ordered By: Abner Roa on 03-05-2022 MCH (RBC) [Entitic mass] 30.4 pg 24.7-34.3 [facility] MCHC Auto (RBC) [Mass/Vol]Or dered By: Abner Roa on 03-05-2022 MCHC (RBC) [Mass/Vol] 33.2 g/dL 32.0-35.0 [facility] MCV Auto (RBC) [Entitic vol] Ordered By: Abner Roa on 03-05-2022 MCV (RBC) [Entitic vol] 91.7 fL 80-100 [facility] Monocytes Auto (Bld) [#/Vol] Ordered By: Abner Roa on 03-05-2022 Monocytes (Bld) [#/Vol] 0.8 10*3/uL 0.0-0.8 [facility] Monocytes/100 WBC Auto (Bld) Ordered By: Abner Roa on 03-05-2022 Monocytes/100 WBC (Bld) 9.2 % . [facility] Neutrophils Auto (Bld) [#/Vo l]Ordered By: Abner Roa on 03-05-2022 Neutrophils (Bld) [#/Vol] 6.8 10*3/uL 1.8-7.7 [facility] Neutrophils/100 WBC Auto (Bl d)Ordered By: Abner Roa on 03-05-2022 Neutrophils/100 WBC (Bld) 73.6 % . [facility] No Panel InformationOrdered By: Abner Roa on 03-05-2022 Estimated GFR () > 60 mL/Min [facility] Comment on above: GFR estimated refere nce range: According to KDOQI guidelines, <60 ml/min/1.73m2 is sufficient to diagnose a patient with chronic kidney disease. Pharmacy Creatinine Clearance (Chem N/A [facility] Platelet mean volume Auto (B ld) [Entitic vol]Ordered By: Abner Roa on 03-05-2022 Platelet mean volume (Bld) [Entitic vol] 7.5 fL 6.3-10.7 [facility] Platelets Auto (Bld) [#/Vol] Ordered By: Abner Roa on 03-05-2022 Platelets (Bld) [#/Vol] 285 10*3/uL 150-450 [facility] RBC Auto (Bld) [#/Vol]Ordere d By: Abner Roa on 03-05-2022 RBC (Bld) [#/Vol] 3.88 10*6/uL 3.60-5.00 [facility] Serum or plasma anion gap de terminationOrdered By: Abner Roa on 03-05-2022 Anion gap [Moles/Vol] 14.8 mmol/L 6.0-15.0 [facility] Serum or plasma calcium annabel urement (mass/volume)Ordered By: Abner Roa on 03-05-2022 Calcium [Mass/Vol] 10.1 mg/dL 8.2-10.2 [facility] Serum or plasma chloride meagan surement (moles/volume)Ordered By: Abner Roa on 03-05-2022 Chloride [Moles/Vol] 99 mmol/L 95-114 [facility] Serum or plasma glucose annabel urement (mass/volume)Ordered By: Abner Roa on 03-05-2022 Glucose [Mass/Vol] 206 mg/dL 70-100 [facility] Comment on above: ADA recommended refe rence rangeRandom Glucose Reference Range is dependent on time and content of last meal. Glucose of more than 200 mg/dL in a nonstressed, ambulatory subject supports the diagnosis of Diabetes Mellitus. Serum or plasma potassium me asurement (moles/volume)Ordered By: Abner Roa on 03-05-2022 Potassium [Moles/Vol] 4.5 mmol/L 3.5-5.1 [facility] Serum or plasma sodium measu rement (moles/volume)Ordered By: Abner Roa on 03-05-2022 Sodium [Moles/Vol] 136 mmol/L 136-146 [facility] Serum or plasma total carbon dioxide measurement (moles/volume)Ordered By: Abner Roa on 03-05-2022 CO2 [Moles/Vol] 26.7 mmol/L 22.0-30.0 [facility] Serum or plasma urea nitroge n measurement (mass/volume)Ordered By: Abner Roa on 03-05-2022 Urea nitrogen [Mass/Vol] 20 mg/dL 9 [facility] Diabetic Self Management Reji francois [birth year]-2020 Diabetic Self Management Education [id number] CD:127 [facility] Coding Summary.on 04-08-2019 Coding Summary. CODING DATE: 019 [facility] STATUS: PAYOR: Medicare ADMIT DX: [...] Theodore CphT Date Saved: 04/08/2019 02:24 pm [facility] Vital Signs Date Time Vital Sign Value Performing Clinician Facility 01-08-2024 10:56-0400 Diastolic blood pressure 67 mm[Hg] Rachelle Contreras MD [facility] 01-08-2024 10:56-0400 Systolic blood pressure 155 mm[Hg] Rachelle Contreras MD [facility] 10-23-2023 10:33-0400 Body height 162.56 cm MARK Cesar Work Phone: [facility] 10-23-2023 10:33-0400 Body mass index (BMI) [Ratio] 38.6 kg/m2 MARK Cesar Work Phone: [facility] 10-23-2023 10:33-0400 Body weight 102 kg MARK Cesar Work Phone: [facility] 08-19-2023 11:27-0400 Body height 157.5 cm Robbi Uribe MD Work Phone: [facility] works [facility] 08-19-2023 11:27-0400 Body mass index (BMI) [Ratio] 41.15 kg/m2 Robbi Uribe MD Work Phone: [facility] 08-19-2023 11:27-0400 Body weight 102.06 kg Robbi Uribe MD Work Phone: [facility] 08-19-2023 11:27-0400 Diastolic blood pressure 58 mm[Hg] Robbi Uribe MD Work Phone: [facility] 08-19-2023 11:27-0400 Heart rate 63 /min Robbi Uribe MD Work Phone: [facility] 08-19-2023 11:27-0400 Systolic blood pressure 149 mm[Hg] Robbi Uribe MD Work Phone: [facility] 07-21-2023 10:26-0500 Body height 158.8 cm Vlad Cesar MD Work Phone: [facility] 07-21-2023 10:26-0500 Body mass index (BMI) [Ratio] 41.22 kg/m2 Vlad Cesar MD Work Phone: [facility] 07-21-2023 10:26-0500 Body weight 103.87 kg Vlad Cesar MD Work Phone: [facility] 07-21-2023 10:26-0500 Diastolic blood pressure 82 mm[Hg] Vlad Cesar MD Work Phone: [facility] 07-21-2023 10:26-0500 Heart rate 66 /min Vlad Cesar MD Work Phone: [facility] 07-21-2023 10:26-0500 SaO2% (BldA) [Mass fraction] 98 % Vlad Cesar MD Work Phone: [facility] 07-21-2023 10:26-0500 Systolic blood pressure 136 mm[Hg] Vlad Cesar MD Work Phone: [facility] 03-13-2023 10:20-0400 Body height 162.56 cm Abner Roa Other [employer] Other 03-13-2023 10:20-0400 Body mass index (BMI) [Ratio] 45.83 kg/m2 Abner Roa Other [facility] [employer] Other 03-13-2023 10:20-0400 Body weight 121.11 kg Abner Roa Other [employer] Other 09-12-2022 10:40-0400 Body height 162.56 cm Abner Roa Other [employer] Other 09-12-2022 10:40-0400 Body mass index (BMI) [Ratio] 42.05 kg/m2 Abner Roa Other [employer] Other 09-12-2022 10:40-0400 Body weight 111.13 kg Abner Roa Other [employer] Other 09-12-2022 10:40-0400 Diastolic blood pressure 80 mm[Hg] Abner Roa Other [facility] [employer] Other 09-12-2022 10:40-0400 Systolic blood pressure 128 mm[Hg] Abner Roa Other [employer] Other 06-13-2022 16:20-0500 Body height 162.56 cm Abner Roa Other [employer] Other 06-13-2022 16:20-0500 Body mass index (BMI) [Ratio] 42.91 kg/m2 Abner Roa Other [employer] Other 06-13-2022 16:20-0500 Body weight 113.4 kg Abner Roa Other [employer] Other 04-18-2022 12:00-0500 Body height 162.56 cm Abner Roa Other [employer] Other 04-18-2022 12:00-0500 Body mass index (BMI) [Ratio] 42.74 kg/m2 Abner Roa Other [employer] Other 04-18-2022 12:00-0500 Body weight 112.95 kg Abner Roa Other [employer] Other 04-03-2022 13:01-0400 Body temperature 97.7 [degF] II Vlad Cesar Work Phone: [facility] 04-03-2022 13:01-0400 Diastolic blood pressure 66 mm[Hg] II Vlad Cesar Work Phone: [facility] 04-03-2022 13:01-0400 Heart rate 61 /min II Vlad Cesar Work Phone: [facility] 04-03-2022 13:01-0400 Respiratory rate 20 /min II Vlad Cesar Work Phone: [facility] 04-03-2022 13:01-0400 SaO2% (BldA) [Mass fraction] 96 % II Vlad Cesar Work Phone: [facility] 04-03-2022 13:01-0400 Systolic blood pressure 149 mm[Hg] II Vlad Cesar Work Phone: [facility] 04-03-2022 07:05-0400 Body height 160.02 cm II Vlad Cesar Work Phone: [facility] 03-31-2022 06:02-0400 Body weight 115.1 kg II Vlad Cesar Work Phone: [facility] 03-22-2022 14:02-0400 Diastolic blood pressure 73 mm[Hg] II Vlad Cesar Work Phone: [facility] 03-22-2022 14:02-0400 Systolic blood pressure 134 mm[Hg] II Vlad Cesar Work Phone: [facility] 03-22-2022 11:12-0400 Body temperature 97.6 [degF] II Vlad Csear Work Phone: [facility] 03-22-2022 11:12-0400 Heart rate 66 /min II Vlad Cesar Work Phone: [facility] 03-22-2022 11:12-0400 Respiratory rate 16 /min II Vlad Cesar Work Phone: [facility] 03-22-2022 11:12-0400 SaO2% (BldA) [Mass fraction] 95 % II Vlad Cesar Work Phone: [facility] 03-22-2022 06:41-0400 Body weight 116 kg II Vlad Cesar Work Phone: [facility] 03-20-2022 17:30-0400 Inhaled oxygen flow rate 2 L/min II Vlad Cesar Work Phone: [facility] 03-19-2022 09:55-0400 Body height 160.02 cm II Vlad Cesar Work Phone: [facility] 03-18-2022 08:15-0400 Body mass index (BMI) [Ratio] 44.5 kg/m2 II Vlad Cesar Work Phone: [facility] 01-15-2022 14:40-0400 Body height 162.56 cm Abner Roa Other [employer] Other 01-15-2022 14:40-0400 Body mass index (BMI) [Ratio] 42.74 kg/m2 Abner Roa Other [employer] Other 01-15-2022 14:40-0400 Body weight 112.95 kg Abner Roa Other [employer] Other 12-07-2021 12:30-0400 Body height 162.56 cm Devangolga Saavedra Other [employer] Other 12-07-2021 12:30-0400 Body mass index (BMI) [Ratio] 42.74 kg/m2 Devangolga Saavedra Other [employer] Other 12-07-2021 12:30-0400 Body weight 112.95 kg Devang Keri Other [employer] Other 12-07-2021 12:30-0400 Diastolic blood pressure 76 mm[Hg] Devang Keri Other [employer] Other 12-07-2021 12:30-0400 Systolic blood pressure 132 mm[Hg] Devang Keri Other [employer] Other 12-06-2021 16:00-0400 Body height 162.56 cm Abner Roa Other [employer] Other 12-06-2021 16:00-0400 Body mass index (BMI) [Ratio] 43.59 kg/m2 Abner Roa Other [employer] Other 12-06-2021 16:00-0400 Body weight 115.21 kg Abner Roa Other [employer] Other 11-08-2021 17:15-0400 Body weight 115.21 kg Devang Keri Other [employer] Other 11-08-2021 17:15-0400 Diastolic blood pressure 72 mm[Hg] Devangolga Saavedra Other [employer] Other 11-08-2021 17:15-0400 SaO2% (BldA) [Mass fraction] 98 % Devang Keri Other [facility] [employer] Other 11-08-2021 17:15-0400 Systolic blood pressure 136 mm[Hg] Devang Keri Other [employer] Other 10-24-2021 17:15-0400 Body weight 115.21 kg Devang Saavedra Other [employer] Other 10-24-2021 17:15-0400 Diastolic blood pressure 70 mm[Hg] Devang Keri Other [employer] Other 10-24-2021 17:15-0400 Systolic blood pressure 116 mm[Hg] Devang Keri Other [facility] [employer] Other 10-15-2021 11:45-0400 Body weight 120.57 kg Devang Saavedra Other [facility] [employer] Other 10-15-2021 11:45-0400 Diastolic blood pressure 66 mm[Hg] Devang Saavedra Other [facility] [employer] Other 10-15-2021 11:45-0400 SaO2% (BldA) [Mass fraction] 93 % Devang Saavedra Other [employer] Other 10-15-2021 11:45-0400 Systolic blood pressure 124 mm[Hg] Devang Keri Other [employer] Other 09-25-2021 11:30-0400 Body weight 121.47 kg Devang Saavedra Other [employer] Other 09-25-2021 11:30-0400 Diastolic blood pressure 62 mm[Hg] Devang Saavedra Other [employer] Other 09-25-2021 11:30-0400 SaO2% (BldA) [Mass fraction] 97 % Devang Saavedra Other [employer] Other 09-25-2021 11:30-0400 Systolic blood pressure 138 mm[Hg] Devang Saavedra Other [employer] Other Encounters Encounter Date Encounter Type Care Provider Facility Start: 03-01-2024 End: 03-01-2024 ambulatory VLAD B CESAR Not Available Start: 02-26-2024 End: 02-26-2024 ambulatory JOHN NELY Not Available Start: 02-24-2024 End: 02-24-2024 ambulatory JOHN NELY Not Available Start: 02-18-2024 End: 02-18-2024 ambulatory JAYDEN MARK Not Available Start: 02-11-2024 End: 02-11-2024 ambulatory JOHN NELY Not Available Start: 02-05-2024 End: 02-05-2024 ambulatory CRISTIAN MEREDITH Not Available Start: 02-05-2024 End: 02-05-2024 ambulatory LORELEI GARRIDO Not Available Start: 02-03-2024 End: 02-03-2024 ambulatory JOHN NELY Not Available Start: 01-27-2024 End: 01-27-2024 ambulatory JOHN NELY Not Available Start: 01-26-2024 End: 01-26-2024 ambulatory VLAD B CESAR Not Available Start: 01-22-2024 End: 01-22-2024 ambulatory JOHN NELY Not Available Start: 01-20-2024 End: 01-20-2024 ambulatory JOHN NELY Not Available Start: 01-14-2024 End: 01-14-2024 ambulatory JOHN NEYL Not Available Start: 01-09-2024 End: 01-09-2024 ambulatory JOHN MCKAY Not Available Start: 01-08-2024 End: 01-08-2024October Lance Plattedy Work Phone: [facility] Start: 01-08-2024 ambulatory May Lance Contreras [facility] Start: 01-07-2024 End: 01-07-2024 ambulatory JOHN MCKAY Not Available Start: 01-01-2024 End: 01-01-2024 ambulatory JAYDEN MARK Not Available Start: 12-30-2023 End: 12-30-2023 ambulatory JAYDEN MARK Not Available Start: 12-19-2023 End: 12-19-2023 ambulatory JESSICA CALHOUNMARTINA Not Available Start: 12-15-2023 End: 12-15-2023 ambulatory [facility] Start: 12-09-2023 End: 12-09-2023October Lance Plattednia Work Phone: [facility] Start: 12-04-2023 End: 12-04-2023 ambulatory [facility] Start: 11-24-2023 End: 11-24-2023 ambulatory VLAD CESAR Not Available Start: 10-30-2023 End: 10-30-2023 Office outpatient new 45 minutes October Lance Plattedy Work Phone: [facility] Start: 10-23-2023 End: 10-23-2023 ambulatory Abner Roa Facility:[facility] Start: 10-23-2023 End: 10-23-2023 ambulatory II Vlad Cesar Work Phone: [facility] Work Phone: Start: 10-23-2023 End: 10-23-2023 Patient encounter procedure II Vlad Cesar Work Phone: [facility] Work Phone: Start: 10-21-2023 End: 10-21-2023 May Lance Rashedy Work Phone: [facility] Start: 10-14-2023 End: 10-14-2023 ambulatory [facility] Start: 10-08-2023 Evaluation and management of inpatient [facility] Start: 10-08-2023 ambulatory [facility] Start: 10-08-2023 End: 10-09-2023 Evaluation and management of inpatient [facility] Start: 10-01-2023 End: 10-01-2023 ambulatory MYA RODRIGUEZSARY Not Available Start: 09-26-2023 End: 09-26-2023 ambulatory [facility] Start: 09-24-2023 End: 09-24-2023 ambulatory VLAD CESAR Not Available Start: 09-09-2023 Evaluation and management of inpatient [facility] Start: 09-09-2023 ambulatory [facility] Start: 09-09-2023 End: 09-10-2023 Evaluation and management of inpatient [facility] Start: 09-04-2023 Telephone encounter [facility] Comment on above: NEW PATIENT REFERRAL Start: 08-19-2023 End: 08-19-2023 Office outpatient visit 25 minutes Robbi Uribe MD Work Phone: [facility] Comment on above: TIA (transient ische bibi attack) (Primary Dx); Bilateral carpal tunnel syndrome Start: 08-19-2023 End: 08-19-2023 ambulatory [facility] Start: 07-31-2023 End: 07-31-2023 ambulatory [facility] Start: 07-21-2023 End: 07-21-2023 Transitional care manage srvc 14 day discharge Vlad Cesar MD Work Phone: [facility] Comment on above: COVID (Primary Dx); NSTEMI (non-ST elevated myocardial infarction) (CMS/HCC); Acute on chronic diastolic heart failure (CMS/HCC); Type 2 diabetes mellitus with hyperglycemia, with long-term current use of insulin ([facility]); 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); Morbid (severe) obesity due to excess calories (E66.01); Body mass index [BMI] 45.0-49.9, adult (Z68.42); Atherosclerosis of [place] coronary artery of [place] heart with angina pectoris ([facility]) Start: 07-21-2023 End: 07-21-2023 ambulatory VLAD CESAR Not Available Start: 07-16-2023 End: 07-16-2023 ambulatory NIRAJ SAN [facility] Start: 07-08-2023 Telephone encounter Tasha Girard RN [facility] Start: 07-07-2023 End: 07-07-2023 Evaluation and management of inpatient SHAWNA ROOTUR [facility] [place] [facility] Start: 07-04-2023 Evaluation and management of inpatient ANGELIKA DANIELLE [facility] [place] [facility] Start: 07-04-2023 Evaluation and management of inpatient DALE [facility] Start: 07-04-2023 Evaluation and management of inpatient DALE [facility] Start: 07-03-2023 Evaluation and management of inpatient IVORY GERRY [facility] [place] [facility] Start: 07-02-2023 End: 07-07-2023 Evaluation and management of inpatient UNKNOWN UNKNOWN [facility] [place] [facility] Start: 06-26-2023 End: 06-26-2023 ambulatory MYA CISSE Not Available Start: 06-25-2023 End: 06-25-2023 ambulatory VLAD CESAR Not Available Start: 04-21-2023 End: 04-21-2023 ambulatory VLAD CESAR Not Available Start: 03-13-2023 Office outpatient vi sit 15 minutes Abner Roa [facility] Start: 03-13-2023 End: 03-13-2023 ambulatory Abner Roa Facility:[facility] Start: 03-13-2023 End: 03-13-2023 ambulatory MARK Cesar Work Phone: [facility] Work Phone: Start: 03-13-2023 End: 03-13-2023 Patient encounter procedure II Vlad Cesar Work Phone: [facility] Work Phone: Start: 02-26-2023 End: 02-26-2023 ambulatory [facility] Start: 12-12-2022 End: 12-12-2022 ambulatory Abner Roa Facility:[facility] Start: 11-06-[address] VLAD CESAR Facilit y:[facility] Start: 09-12-2022 Office outpatient vi sit 15 minutes Abner Roa [facility] Start: 09-12-2022 End: 09-12-2022 ambulatory II Vlad Cesar Work Phone: [facility] Work Phone: Start: 09-12-2022 End: 09-12-2022 Patient encounter procedure II Vlad Cesar Work Phone: [facility] Work Phone: Start: 06-13-2022 End: 06-13-2022 Patient encounter procedure II Vlad Cesar Work Phone: [facility] Work Phone: Start: 06-13-2022 End: 06-13-2022 ambulatory II Vlad Cesar Work Phone: [facility] Work Phone: Start: 06-13-2022 Postop follow up vis it related to original px Abner Roa [facility] Start: 05-17-2022 End: 05-18-[address] VLAD CESAR Facility:[facility] Start: 05-14-2022 End: 05-14-[address] VLAD CESAR Facility:[facility] Start: 05-09-2022 End: 05-09-2022 ambulatory II Vlad Cesar Work Phone: [facility] Work Phone: Start: 05-09-2022 End: 05-09-2022 Discharged Recurring II Vlad Cesar Work Phone: [facility] Work Phone: Start: 05-09-2022 Registered Recurring II Vlad Cesar Work Phone: [facility] Work Phone: Start: 04-18-2022 End: 04-18-2022 ambulatory Abner Roa Other [facility] Other Start: 04-18-2022 Postop follow up vis it related to original px Abner Roa [facility] Start: 04-09-2022 End: 04-09-2022 ambulatory II Vlad Cesar Work Phone: [facility] Work Phone: Start: 04-09-2022 End: 04-09-2022 Patient encounter procedure II Vlad Cesar Work Phone: [facility] Start: 03-22-2022 End: 04-03-2022 Evaluation and management of inpatient II Vlad Cesar Work Phone: [facility] Start: 03-18-2022 [facility]mission [facility] Abner Roa [facility] Start: 03-18-2022 End: 03-18-2022 ambulatory Abner Roa Other [facility] Other Start: 03-18-2022 End: 03-22-2022 Evaluation and management of inpatient II Vlad Cesar Work Phone: [facility] Start: 03-14-2022 End: 03-14-2022 ambulatory II Vlad Cesar Work Phone: [facility] Work Phone: Start: 03-14-2022 End: 03-14-2022 Patient encounter procedure II Vlad Cesar Work Phone: [facility] Start: 03-05-2022 End: 03-05-2022 ambulatory II Vlad Cesar Work Phone: [facility] Work Phone: Start: 03-05-2022 End: 03-05-2022 Patient encounter procedure II Vlad Cesar Work Phone: [facility] Start: 01-15-2022 End: 01-15-2022 ambulatory Abner Roa Other [employer] Other Start: 01-15-2022 Office outpatient vi sit 40 minutes Abner Roa [facility] Start: 01-09-2022 End: 01-09-2022 Patient encounter procedure MD Abner Roa Work Phone: [facility] Start: 01-07-2022 End: 01-07-2022 ambulatory Devang Saavedra Other [employer] Other Start: 01-07-2022 Telephone encounter Devang Saavedra [facility] Start: 01-03-2022 End: 01-03-2022 Patient encounter procedure MD Abner Roa Work Phone: [facility] [place] Start: 12-07-2021 End: 12-07-2021 ambulatory Devang Saavedra Other [employer] Other Start: 12-07-2021 Office outpatient vi sit 25 minutes Devangolga Saavedra [facility] [place] Start: 12-06-2021 End: 12-06-2021 ambulatory Abner Roa Other [employer] Other Start: 12-06-2021 Office outpatient ne w 30 minutes Abner Roa [facility] Start: 11-09-2021 End: 11-09-2021 ambulatory Abner Roa Other [employer] Other Start: 11-09-2021 Telephone encounter Abner Roa [facility] Start: 11-08-2021 End: 11-08-2021 ambulatory Devang Saavedra Other [employer] Other Start: 11-08-2021 Office outpatient vi sit 25 minutes Devangolga Saavedra [facility] Start: 10-24-2021 End: 10-24-2021 ambulatory Devang Keri Other [employer] Other Start: 10-24-2021 Office outpatient vi sit 25 minutes Devang Keri [facility] Start: 10-15-2021 End: 10-15-2021 ambulatory Devangolga Saavedra Other [employer] Other Start: 10-15-2021 Office outpatient vi sit 25 minutes Devang Keri [facility] Start: 10-04-2021 (Procedure) Short Devang Saavedra [facility] Start: 10-04-2021 End: 10-04-2021 ambulatory Devangolga Saavedra Other [employer] Other Start: 09-25-2021 End: 09-25-2021 ambulatory Devang Saavedra Other [employer] Other Start: 09-25-2021 Office outpatient ne w 45 minutes Devangolga Saavedra [facility] Start: 08-18-2018 End: 08-19-2018 Patient encounter procedure DEFAULT PHYSICIAN Facility:[facility] Start: 08-17-2018 End: 08-18-2018 Patient encounter procedure DEFAULT PHYSICIAN Facility:[facility] Procedures Date Procedure Procedure Detail Performing Clinician Start: 01-08-2024 End: 01-08-2024 Computerized ophthalmic imaging retina May Lance Contreras Start: 01-08-2024 Eylea 1mg Pre-filled Syringe May Lance Plattednia Start: 01-08-2024 End: 01-08-2024 Eylea 1mg Pre-filled Syringe May Lance Contreras MD Start: 01-08-2024 End: 01-08-2024 Intravitreal njx pharmacologic agt spx May Lance Contreras Start: 12-09-2023 End: 12-09-2023 Computerized ophthalmic imaging retina May Lance Contreras MD Start: 12-09-2023 End: 12-09-2023 Eylea 1mg Pre-filled Syringe May Lance Contreras MD Start: 12-09-2023 End: 12-09-2023 Intravitreal njx pharmacologic agt spx May Lance Contreras MD Start: 10-30-2023 End: 10-30-2023 Computerized ophthalmic imaging retina May Lance Contreras MD Start: 10-30-2023 End: 10-30-2023 Eylea 1mg Pre-filled Syringe May Lance Contreras MD Start: 10-30-2023 End: 10-30-2023 Fundus Photos No Charge Bilateral May Lance Contreras MD Start: 10-30-2023 End: 10-30-2023 Intravitreal njx pharmacologic agt spx May Lance Contreras MD Start: 10-23-2023 X-ray of lumbar spine, four [...] veins II Vlad Cesar Work Phone: Start: 10-10-2022 OR XLIF Lumbar Lateral Interbody Fusion (Not Applicable) II Vlad Arsenio Work Phone: Start: 03-18-2022 X-ray of lumbar spine, two or three views II Vlad Arsenio Work Phone: Start: 01-09-2022 Dual energy X-ray [...] Adult BMI Screening Adult BMI Screen ing [facility] Start: 08-18-2024 Depression Screening Depression Scre ening [facility] Start: 08-18-2024 Tobacco Screening Tobacco Screening [facility] Start: 06-25-2024 Medicare Annual Well ness (AWV) Medicare Annual Wellness (AWV) [facility] Start: 06-25-2024 Pneumococcal Vaccine : 65+ Years (1 - PCV) Pneumococcal Vaccine: 65+ Years (1 - PCV) [facility] Comment on above: Postponed from 11/23 (Patient Refused) Start: 06-25-2024 Screening for malign ant neoplasm of colon Colorectal Cancer Screening [facility] Comment on above: Postponed from 11/23 (Patient Refused) Start: 03-10-2024 Urine screening for protein Diabetes: Urine Protein Screening [facility] Start: 02-05-2024 Hayley Lawson ne 4wks Io Eyl Od [facility] Work Phone: Start: 12-15-2023 End: 12-15-2023 Patient encounter procedure 12/15/2023 11:00 AM EDT Office Visit [facility] [address] [place] [phone] Casey العلي MD [address] [place] [address], [address], [address], [address] [place] [phone] [facility] Start: 12-07-2023 Influenza vaccination Influenza Vacc ine (#1) [facility] Comment on above: Postponed from 02/07 (Patient Refused) Start: 11-07-2023 Screening for malign ant neoplasm of breast Mammogram [facility] Start: 10-25-2023 Glaucoma screening Diabetes: R etinopathy Screening [facility] Start: 10-21-2023 Smoking cessation education Tobacco cessation counseling [facility] Start: 10-02-2023 Hemoglobin A1c measurement Diabetes: Hemoglobin A1C [facility] Start: 09-24-2023 End: 09-24-2023 Patient encounter procedure 09/24/2023 11:00 AM EDT Office Visit [facility] [address] [facility] [address] [place] [phone] Vlad Cesar MD [address] [facility] [address] [place] [address] [facility] Start: 09-23-2023 End: 09-23-2023 Patient encounter procedure 09/23/2023 1:00 PM EDT Procedure Visit [facility] [address] [place] [phone] Mya Cisse DPM [address] [place] [address] [facility] Start: 08-19-2023 End: 08-19-2023 Patient encounter procedure 08/19/2023 11:30 AM EDT Office Visit [facility] [address] [place] [phone] Robbi Uribe MD [address] [place] [address], [address], [address] [place] [address] [facility] Start: 07-30-2023 End: 07-30-2023 Patient encounter procedure 07/30/2023 11:30 AM EST Office Visit [facility] [address] [facility] [address] [place] [phone] Vlad Cesar MD [address] [facility] [address] [place] [address] [facility] Start: 02-07-2023 Influenza vaccination Influenza Vacc ine [facility] Start: 04-03-2022 [facility] Start: 03-22-2022 Hospital admission [facility] Start: 03-22-2022 Referral to clinical sport internship [facility] Start: 03-21-2022 [facility] Start: 03-18-2022 Computer Assisted Procedure of [place] Region Computer Assisted Procedure of [place] [facility] Start: 03-18-2022 Excision of Lumbar Vertebral Disc, Open Approach Excision of Lumbar Vertebral Disc, Open Approach [facility] Start: 03-18-2022 Fusion of 2 or more Lumbar Vertebral Joints with Interbody Fusion Device, Anterior Approach, Anterior Column, Open Approach Fusion of 2 or more Lumbar Vertebral Joints with Interbody Fusion Device, Anterior Approach, Anterior Column, Open Approach [facility] Start: 03-18-2022 Fusion of 2 or more Lumbar Vertebral Joints with Synthetic Substitute, Posterior Approach, Posterior Column, Open Approach Fusion of 2 or more Lumbar Vertebral Joints with Synthetic Substitute, Posterior Approach, Posterior Column, Open Approach [facility] Start: 03-18-2022 Introduction of Recombinant Bone Morphogenetic Protein into Joints, Open Approach Introduction of Recombinant Bone Morphogenetic Protein into Joints, Open Approach [facility] Start: 01-09-2022 Dual energy X-ray absorptiometry XR dexa axial skeleton [facility] Start: 01-09-2022 End: 01-09-2022 Patient encounter procedure Departed Clinical [facility] Start: 2017 Fall Risk Screening Fall Risk Screen [facility] Start: 2002 Administration of varicella zoster vaccine Zoster (Shingles) Vaccine (1 of 2) [facility] Start: 11-24-1971 DTaP,Tdap and Td Vaccines (1 - Tdap) DTaP,Tdap and Td Vaccines (1 - Tdap) [facility] Start: 1970 Adult BMI Follow Up Plan Adult BMI Follow Up Plan [facility] Start: 1970 Adult BMI Screening Adult BMI Screen ing [facility] Start: 1964 Depression Screening Depression Scre ening [facility] Start: 1964 Tobacco Screening Tobacco Screening [facility] Start: 1952 Medicare Annual Well ness Visit Medicare Annual Wellness Visit [facility] Start: 1952 Screening for malign ant neoplasm of colon [facility] Patient Education TLSO and LSO [facility] Work Phone: Patient referral [facility] Work Phone: [facility] Payers Date Payer Category Payer Self-pay [id number] 2022 Private Health Insurance [id number] 2017 Medicare [id number] 1959 Medicare [id number] 2.1 [id number] 1959 Private Health Insurance [id number] 2.16.840.1.459239.19 1952 Unknown [id number] 2.16.8 40.1.887152.3.579.2.647 1952 Unknown [id number] 2.16.8 40.1.525932.3.579.2.647 1952 Unknown [id number] 2.16.84 0.1.097924.3.579.2.593 1952 Unknown [id number] 2.16.84 0.1.775977.3.579.2.593 1952 Unknown [id number] 2.16.84 0.1.096641.3.579.2.593 1952 Unknown [id number] 2.16.8 40.1.397071.3.579.2.1286 1952 Unknown [id number] 2.16.8 40.1.074467.3.579.2.1286 1952 Unknown [id number] 2.16.840. 1.831655.3.579.2.1347 1952 Unknown [id number] 2.16.84 0.1.660335.3.579.2.1259 1952 Unknown [id number] 2.16.84 0.1.379741.3.579.2.1259 1952 Unknown [id number] 2.16.84 0.1.962542.3.579.2.1259 1952 Unknown [id number] 2.16.84 0.1.238591.3.579.2.1259 1952 Unknown [id number] 2.16.84 0.1.942763.3.579.2.1259 1952 Unknown [id number] 2.16.84 0.1.198816.3.579.2.1259 1952 Unknown [id number] 2.16.84 0.1.730023.3.579.2.1259 1952 Unknown [id number] 2.16.84 0.1.949844.3.579.2.1259 1952 Unknown [id number] 2.16.84 0.1.669270.3.579.2.1259 1952 Unknown [id number] 2.16.84 0.1.600707.3.579.2.1259 1952 Unknown [id number] 2.16.84 0.1.147143.3.579.2.1259 1952 Unknown [id number] 2.16.84 0.1.547304.3.579.2.1259 1952 Unknown [id number] 2.16.84 0.1.582031.3.579.2.1259 1952 Unknown [id number] 2.16.84 0.1.889292.3.579.2.1259 1952 Unknown [id number] 2.16.84 0.1.636447.3.579.2.1259 1952 Unknown [id number] 2.16.84 0.1.400055.3.579.2.1259 1952 Unknown [id number] 2.16.84 0.1.743821.3.579.2.1259 1952 Unknown [id number] 2.16.84 0.1.180312.3.579.2.1259 1952 Unknown [id number] 2.16.84 0.1.584453.3.579.2.1259 1952 Unknown [id number] 2.16.84 0.1.266183.3.579.2.1259 1952 Unknown [id number] 2.16.84 0.1.163776.3.579.2.1259 1952 Unknown [id number] 2.16.84 0.1.402906.3.579.2.1259 1952 Unknown [id number] 2.16.84 0.1.159809.3.579.2.1259 1952 Unknown [id number] 2.16.84 0.1.267862.3.579.2.1259 1952 Unknown [id number] 2.16.840. 1.808954.3.579.2.1259 Unknown Unknown [id number] 2.16.8 40.1.846926.3.579.2.531 Unknown [id number] 2.16.8 40.1.700945.3.579.2.531 Unknown [id number] 2.16.8 40.1.608977.3.579.2.531 Social History Date Type Detail Facility Start: 01-12-2023 End: 08-19-2023 Sex Assigned At [facility] Start: 1950 Sex Assigned At Female F [facility] Start: 03-05-2022 End: 03-23-2022 Tobacco smoking status NHIS Never smoked tobacco (finding) [facility] Tobacco smoking status [facility] Tobacco smoking consumption unknown [facility] Start: 1950 Sex Assigned At Not on file P [facility] Start: 12-20-2022 End: 08-19-2023 Tobacco use and exposure Smokeless tobacco non-user [facility] Start: 07-21-2023 Alcohol intake Lifetime non-d [...] Not at all [facility] (I/We) worried whether (my/our) food would run out before (I/we) got money to buy more. Never true [facility] Start: 10-11-2022 Alcohol Comment Caffeine: 1-2 cups per day [facility] Start: 08-19-2023 Alcohol intake Ex-drinker (finding) [facility] Start: 01-08-2024 Health-related behavior (observable entity) Caffeine Use Details [facility] Start: 01-08-2024 Tobacco use and exposure Non-Smoking Tobacco Use Details [facility] NEGATED: Highlighted rowStart: 08-01-2024 Tobacco smoking status DEIS Unknown if ever smoked [facility] NEGATED: Highlighted row Alcohol intake Alcohol Use Details [facility] NEGATED: Highlighted rowStart: 01-08-2024 History of tobacco use Current non-smoker [facility] Medical Equipment Procedure Code Equipment Code Equipment Origin al Text Equipment Identifier Dates Fusion, spine, lumbar, XLIF STRATOFUSE DBM 10CC FDA Start: 03-18-2022 Fusion, spine, lumbar, XLIF Bone-screw internal spinal fixation system, non-sterile [id number] FDA Start: 03-18-2022 Fusion, spine, lumbar, XLIF Orthopaedic bone screw, non-bioabsorbable, non-sterile [id number] FDA Start: 03-18-2022 Fusion, spine, lumbar, XLIF Orthopaedic instrument surgical connector [id number] FDA Start: 03-18-2022 Fusion, spine, lumbar, XLIF Bone-screw internal spinal fixation system, non-sterile [id number] FDA Start: 03-18-2022 Fusion, spine, lumbar, XLIF STRATOFUSE DBM 5CC FDA Start: 03-18-2022 Fusion, spine, lumbar, XLIF Spinal fusion graft kit [id number] FDA Start: 03-18-2022 Fusion, spine, lumbar, XLIF Metallic spinal fusion cage, non-sterile [id number] FDA Start: 03-18-2022 Fusion, spine, lumbar, XLIF Metallic spinal fusion cage, non-sterile [id number] FDA Start: 03-18-2022 Fusion, spine, lumbar, XLIF [...] DIRECTED UNDER THE SKIN TWO TIMES DAILY [id number] Start: 11-29-2022 1 each by Other route in the morning and 1 each at noon and 1 each in the evening and 1 each before bedtime. Take before meals. ONE TOUCH ULTRA STRIPS DX: e11.65. [id number] Start: 07-09-2023 Inject under the skin 2 (two) times a day. Use as instructed [id number] 2 (two) times a day. Use as instructed [id number] Goals Date Patient Goal Desired Activity /State Functional Status Date Assessment Result Facility 04-03-2022 Functional status Patient is Pro gressing Toward Baseline [facility] Work Phone: 03-22-2022 Functional status Patient is Pro gressing Toward Baseline [facility] Work Phone: 03-18-2022 Functional status Patient at Baseline [facility] Work Phone: 03-05-2022 Functional status Disability Sta tus Patient at Baseline [facility] Work Phone: Mental Status Date Assessment Result Facility 04-03-2022 Cognitive function Cognitive Sta tus Patient at Baseline [facility] Work Phone: 03-22-2022 Cognitive function Cognitive Sta tus Patient at Baseline [facility] Work Phone: 03-18-2022 Cognitive function Cognitive Sta tus Patient at Baseline [facility] Work Phone: Clinical Notes 09-25-2021 to 01-08-2024 Note Date & Type Note Facility 01-08-2024 Evaluation note Type assessment Both eyes affected b y mild nonproliferative diabetic retinopathy with macular edema, associated with type 2 diabetes mellitus impression Both eyes affected b y mild nonproliferative diabetic retinopathy with macular edema, associated with type 2 diabetes mellitus: E11.3213. Bilateral [facility] Work Phone: 1(276) 565-343108-01-2024 History of Present illness Narrative* Encounter Date Complaint History Of Prese nt Illness DM with mild NPDR with ME The 73 year old female presents for evaluation of DM with mild NPDR with ME in the right and left eyes. Patient denies any changes in her vision. Patient denies any new floaters or flashes of light. NPDR The 73 year old female presents for treatment of NPDR in the right eye. Pt states that vision is the same and denies floaters, flashes of light and ocular pain. Diabetic macular edema The 72 ye ar old female presents for new patient evaluation of Diabetic macular edema in the right and left eyes. Patient denies any real vision issues at this time. Patient states that she wears glasses one for near and one for distance. Patient denies any floaters or flashes of light. Patient states her regular eye doctor did not change her last glasses RX. [facility] Work Phone: 1(190) 184-558208-01-2024 Instructions* Date Instruction Additional Infor dmitri Impression/Plan Related to Both eyes affected by mild nonproliferative diabetic retinopathy with macular edema, associated with type 2 diabetes mellitus Impression/Plan Related to Both eyes affected by mild nonproliferative diabetic retinopathy with macular edema, associated with type 2 diabetes mellitus Impression/Plan Related to Combi yvon forms of age-related cataract of both eyes Impression/Plan Related to Early dry stage nonexudative age-related macular degeneration of both eyes Impression/Plan Related to Both eyes affected by mild nonproliferative diabetic retinopathy with macular edema, associated with type 2 diabetes mellitus [facility] Work Phone: 1(335) 436-317206-27-2024 NoteUT Cardiology - [facility] Subjective Laura Lawson is a 73 y.o. [...] retinopathy associated with type 2 diabetes mellitus ([facility]/HCC) Diaphragmatic hernia Difficulty walking Dyspnea on exertion Generalized osteoarthritis Gout History of arthritis History of hysterectomy Hyperglycemia due to type 2 diabetes mellitus ([facility]/HCC) [facility] current use of insulin ([facility]/HCC) Low back pain Morbid obesity ([facility]) Neoplasm of uncertain behavior of kidney Obstructive sleep apnea syndrome Osteoarthritis of knee Osteoporosis Peripheral venous insufficiency Polyneuropathy due to type 2 diabetes mellitus ([facility]/HCC) Preoperative evaluation to rule out surgical contraindication Pulmonary function studies abnormal Pure hypercholesterolemia Renal mass Skin sensation disturbance Type 2 diabetes mellitus without complication ([facility]/HCC) Umbilical hernia Uric acid nephrolithiasis NSTEMI (non-ST elevated myocardial infarction) ([facility]/HCC) Acute exacerbation of CHF (congestive heart failure) ([facility]) COVID-19 Acquired spondylolisthesis Acute on chronic diastolic heart failure ([facility]) Coronary artery disease (CAD) excluded Diastolic dysfunction GERD (gastroesophageal reflux disease) History of carpal tunnel surgery of right wrist Hyperlipidemia Impaired mobility and endurance Localized edema Lumbar radiculopathy Morbid obesity with body mass index (BMI) of 45.0 to 49.9 in adult ([facility]/HCC) Paresthesia of skin Primary osteoarthritis of both knees S/P drug eluting coronary stent placement Ulcer of foot due to type 2 diabetes mellitus ([facility]/HCC) Pericardial effusion CAD in [place] artery Coronary artery disease Coronary artery disease involving [place] coronary artery of [place] heart with other form of angina pectoris (CMS/HCC) Chronic systolic heart failure ([facility]/HCC) Combined forms of age-related cataract of both [...] She is not ill-appearing. (more content not included)...[facility]05-07-2024 Note Cardiovascular Medicine [facility] SUBJECTIVE Chief Complaint Patient presents with [...] essential hypertension Cerebrovascular disease Chronic foot ulcer ([facility]) Coronary atherosclerosis Decreased estrogen level Diabetic retinopathy associated with type 2 diabetes mellitus ([facility]) Diaphragmatic hernia Difficulty walking Dyspnea on exertion Generalized osteoarthritis Gout History of arthritis History of hysterectomy Hyperglycemia due to type 2 diabetes mellitus ([facility]) [facility] current use of insulin ([facility]) Low back pain Morbid obesity ([facility]) Neoplasm of uncertain behavior of kidney Obstructive sleep apnea syndrome Osteoarthritis of knee Osteoporosis Peripheral venous insufficiency Polyneuropathy due to type 2 diabetes mellitus ([facility]) Preoperative evaluation to rule out surgical contraindication Pulmonary function studies abnormal Pure hypercholesterolemia Renal mass Skin sensation disturbance Type 2 diabetes mellitus without complication ([facility]) Umbilical hernia Uric acid nephrolithiasis NSTEMI (non-ST elevated myocardial infarction) ([facility]) Acute exacerbation of CHF (congestive heart failure) ([facility]) COVID-19 Acquired spondylolisthesis Acute on chronic diastolic heart failure ([facility]) Coronary artery disease (CAD) excluded Diastolic dysfunction GERD (gastroesophageal reflux disease) History of carpal tunnel surgery of right wrist Hyperlipidemia Impaired mobility and endurance Localized edema Lumbar radiculopathy Morbid obesity with body mass index (BMI) of 45.0 to 49.9 in adult ([facility]) Paresthesia of skin Primary osteoarthritis of both knees S/P drug eluting coronary stent placement Ulcer of foot due to type 2 diabetes mellitus ([facility]) Pericardial effusion CAD in [place] artery Coronary artery disease Coronary artery disease involving [place] coronary artery of [place] heart with other form of angina pectoris ([facility]) Chronic systolic heart failure ([facility]) Past Medical History: Diagnosis Date Abnormal ECG CHF (congestive heart failure) ([facility]) Coronary artery disease Diabetes mellitus ([facility]) Gout Hypertension Myocardial infarction (CMS/HCC) Sleep apnea Family History Problem Relation Name [...] 0.3 mg sublingual tablet, (more content not included)...[facility] 10-14-2023 NotePatient here for follow up PCI with Dr. Zendejas on 10/08/2023. Says she's doing very well. Denies chest pain, SOB, and lightheadedness/syncope. Review of Systems Cardiovascular: Positive for leg swelling. Respiratory: Positive for cough. Musculoskeletal: Positive for muscle weakness. All other systems reviewed and are negative.[facility] 10-09-2023 Note10/09/23 1032 Admission Assessment Questions Verify insurance with [...] Discharge? Yes Does the patient have a behavioral health case manager assigned to them through their insurance? No [...] able to send link and activate MyChart? [facility]Un[facility] NotePatient: Laura Lawson Procedure Information Date/Time: 10/08/23 0830 Procedures: Percutaneous coronary intervention - with Impella Impella insertion Atherectomy - coronary Location: [facility] / [facility] (Cath) Providers: Julito Zendejas [...] products. Plan discussed with attending. Additional Equipment RequestsK[facility]04-19-2024 Note hydral [place] [facility] - [facility] Subjective Laura Lawson is a [...] due to type 2 diabetes mellitus (CMS/HCC) [facility] current use of insulin (CMS/HCC) Low back pain Morbid obesity ([facility]/HCC) Neoplasm of uncertain behavior of kidney Obstructive sleep apnea syndrome Osteoarthritis of knee Osteoporosis Peripheral venous insufficiency Polyneuropathy due to type 2 diabetes mellitus (CMS/HCC) Preoperative evaluation to rule out surgical contraindication Pulmonary function studies abnormal Pure hypercholesterolemia Renal mass Skin sensation disturbance Type 2 diabetes mellitus without complication (CMS/HCC) Umbilical hernia Uric acid nephrolithiasis NSTEMI (non-ST elevated myocardial infarction) ([facility]/HCC) Acute exacerbation of CHF (congestive heart failure) ([facility]/HCC) COVID-19 Acquired spondylolisthesis Acute on chronic diastolic heart failure ([facility]/HCC) Coronary artery disease (CAD) excluded Diastolic dysfunction [...] (CMS/HCC) Pericardial effusion Acute systolic heart failure (CMS/HCC) CAD in [place] artery Family History Problem Relation Name Age [...] She is alert and (more content not included)...[facility]04-03-2024 NoteHospital Medicine Discharge Summary Final Discharge Diagnosis: Acute systolic heart failure (CMS/HCC) CAD Essential hypertension NIDDM2 Hyperlipidemia Morbid obesity Admission Diagnosis: Acute systolic heart failure (CMS/HCC) [I50.21] CAD in [place] artery [I25.10] Hospital course: Laura Lawson is an 72 y.o. female admitted from [facility]p left heart cath for evaluation [...] placement with impella, however, due to one skilled laborer being down, they are going to reschedule for next week and she can go home in the meantime. Dear Dr. Arsenio MD, Laura is advised to follow up with you within 1-2 weeks. 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 NEURO: No (more content not included)...[facility] 09-10-2023 NoteClinical Nutrition Assessment Name: Laura Lawson Date: 1950 Date of [...] 20 mg, oral, 2 times daily RT Tousalome Max U-300 SoloStar 100 Units, subcutaneous, Daily [...] Has had previous ed's (more content not included)...[facility]04-03-2024 NoteThe patient is Moderately Stable - Low risk of patient condition declining or worsening The patient's goals for the shift include get procedure done The clinical goals for the shift [facility]09/09/23 1509 Admission Assessment Questions Verify insurance with [...] Discharge? Yes Does the patient have a behavioral health case manager assigned to them through their insurance? No Living Arrangement (Current/Prior to Hospitalization) Private residence;Home self care (lives w/friend. One story home w/4 entry stairs) Does the patient have history of HHC or SNF? Yes (HHC after back surgery - doesn't recall company) Assistive Device Grab bars;Other (Comment) (rollator, bipap machine ([employer]), shower chair) Patient's goal for discharge home [...] able to send link and activate MyChart? [facility]04-02-2024 NoteHospital Medicine History and Physical 09/09/2023 12:19 PM THE HOSPITALIST TEAM PREFERS TO USE [employer] CHAT FOR COMMUNICATION 7AM-7PM. IF I DO NOT RESPOND WITHIN 15 MINUTES, PLEASE PAGE ME/CALL THROUGH THE RETAIL ROUTE SUPERVISOR. FROM 7PM-7AM, PLEASE PAGE [phone](COVR) Chief Complaint No chief complaint on file. History of Present Illness Laura Lawson is an 72 y.o. female admitted from skilled lab[facility] s/p left heart cath for evaluation [...] Problem List Diagnosis Date Noted CAD in [place] artery 09/09/2023 Pericardial effusion 08/05/2023 History of carpal tunnel surgery of right wrist 07/31/2023 Impaired mobility and endurance 07/31/2023 Morbid obesity with body mass index (BMI) of 45.0 to 49.9 in adult ([facility]) 07/31/2023 Acute on chronic diastolic heart failure ([facility]) 07/21/2023 Acute exacerbation of CHF (congestive heart failure) ([facility]) 07/03/2023 COVID-19 07/03/2023 NSTEMI (non-ST elevated myocardial infarction) ([facility]) 07/02/2023 Acquired spondylolisthesis 01/13/2023 Diastolic dysfunction 01/13/2023 Lumbar radiculopathy 01/13/2023 Paresthesia of skin 01/13/2023 Primary osteoarthritis of both knees 01/13/2023 S/P drug eluting coronary stent placement 01/13/2023 Localized edema 10/28/2022 Coronary artery disease (CAD) excluded 10/15/2022 GERD (gastroesophageal reflux disease) 10/15/2022 Hyperlipidemia 10/15/2022 Difficulty walking 04/24/2021 Pure hypercholesterolemia 09/20/2020 Osteoporosis 03/08/2020 Peripheral venous insufficiency 01/10/2020 Polyneuropathy due to type 2 diabetes mellitus ([facility]) 01/10/2020 Chronic foot ulcer ([facility]) 11/25/2019 Ulcer of foot due to type 2 diabetes mellitus ([facility]) 11/25/2019 Skin sensation disturbance 11/05/2019 Decreased estrogen level 07/28/2019 Diabetic retinopathy associated with type 2 diabetes mellitus ([facility]) 10/30/2018 Dyspnea on exertion 08/04/2018 Osteoarthritis of knee 12/29/2017 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 Umbilical hernia 07/15/2017 Renal mass 05/28/2017 Generalized 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/17/2016 Cerebrovascular disease 02/01/2016 Allergic rhinitis 07/12/2015 History of hysterectomy 07/12/2015 Hyperglycemia due to type 2 diabetes mellitus ([facility]) 07/12/2015 [facility] current use of insulin ([facility]) 07/12/2015 Uric acid nephrolithiasis 07/12/2015 Pulmonary function studies abnormal 11/02/2013 Preoperative (more content not included)...[facility] 09-09-2023 NotePatient: Laura Lawson Procedure Information Date/Time: 09/09/23929 Procedure: Coronary angiography (Left) Location: [facility] / [facility] (Cath) Providers: Julito Zendejas MD Clinical information reviewed: Allergies Meds OB Status Physical Exam Airway Mallampati: IV TM distance: <3 FB Neck ROM: full Cardiovascular Dental Pulmonary Abdominal Anesthesia Plan ASA 3 other (Subconscious sedation. ) Additional Equipment RequestsKettering Health [facility]03-28-2024 Miscellaneous Notes* Telephone Encounter - Trista Castaneda - 09/04/2023 2:53 PM EDT [facility] New patient referral received. Dx:Bilateral carpal tunnel syndrome [G56.03]-H/o bilateral CTS, previous right carpel tunnel surgery. Diminished sensation in both hands/fingers./ Referred by:Robbi Uribe MD Referred to: Providers patient can see in clinic: Please contact patient to schedule from referral, Thanks! PLEASE REVIEW PLAN OVER THE PHONE AND ADVISE PATIENT TO BRING UPDATED INSURANCE INFORMATION TO THEIR NEW PATIENT APPOINTMENT * Telephone Encounter - Kasandra Weaver - 09/04/2023 2:53 PM EDT Received call today 09/05/23 3:10 from patient in regard to previous message and she scheduled for new patient appt with Dr. العلي on 12/15/23 11:[address] [facility]. She wanted to wait some months out due to Dr. Uribe saying it wasn't urgent for her to come in soon for the carpel tunnel. documented in this encounterAdena [facility]03-28-2024 Telephone encounter Note* Telephone Encounter - Trista Castaneda - 09/04/2023 2:53 PM EDT [facility] New patient referral received. Dx:Bilateral carpal tunnel syndrome [G56.03]-H/o bilateral CTS, previous right carpel tunnel surgery. Diminished sensation in both hands/fingers./ Referred by:Robbi Uribe MD Referred to: Providers patient can see in clinic: Please contact patient to schedule from referral, Thanks! PLEASE REVIEW PLAN OVER THE PHONE AND ADVISE PATIENT TO BRING UPDATED INSURANCE INFORMATION TO THEIR NEW PATIENT APPOINTMENT [facility] HospitalOr[facility] [id number] Telephone encounter Note* Telephone Encounter - Kasandra Waever - 09/04/2023 2:53 PM EDT Received call today 09/05/23 3:10 from patient in regard to previous message and she scheduled for new patient appt with Dr. العلي on 12/15/23 11:[address] [facility]. She wanted to wait some months out due to Dr. Uribe saying it wasn't urgent for her to come in soon for the carpel tunnel. [facility] HospitalImagin[facility] [id number] History of Present illness Narrative* Robbi Uribe MD - 08/19/2023 11:30 AM EDT Reason for visit: HPI: Laura Lawson is [...] the event. Of note patient's A1c at thattime was 10.8 and LDL was 87 patient [...] has since followed up with Cardiology at [facility]. Patient is present with friend today. Patient states that she needs clearance to get a heart catheterizationand possible stents placed. Otherwise patient denies any [...] in left eye, vision loss in right eyeand visual disturbance. Cardiovascular: Positive for leg swelling. [...] mental status, depression and memory loss. The patientdoes not have insomnia and is not nervous/anxious. [...] occlusions or narrowing, cardiology should consider a skilled nursing heart monitor such as a LOOP recorder. Followup with general neurology for h/o carpel tunnel and possible diabetic neuropathy. Will call patient in 6 months, if patient is doing well, no followup needed. Call for any questions/concerns. documented in this encounterBrightlook HospitalCritical Pharmaceuticals03-12-2024 Instructions* Patient Instructions* Robbi Uribe MD - 08/19/2023 11:30 AM EDT Continue ASA daily Continue cholesterol medication Continue diabetic medication Continue BP medication Followup with cardiology as scheduled. Will clear patient for heart cath procedures and stents if needed. If heart cath shows no significant occlusions or narrowing, cardiology should consider a skilled nursing heart monitor such as a LOOP recorder. Followup with general neurology for h/o carpel tunnel and possible diabetic neuropathy. Will call patient in 6 months, if patient is doing well, no followup needed. Call for any questions/concerns. documented in this encounterKettering Memorial HospitalCloud Technology Partners [id number] NotePatient here for follow up echo. She has an apt with neurology 08/18. She brought in her new BP cuff for comparison and it read 147/57 L sitting. Still denies chest pain, SOB, palpitations, and lightheadedness/syncope. Review of Systems Cardiovascular: Positive for leg swelling (improving). Musculoskeletal: Positive for muscle weakness. Neurological: Positive for weakness. All other systems reviewed and are negative.[facility] 07-31-2023 NoteCardiovascular Medicine [facility] SUBJECTIVE Chief Complaint Patient presents with Congestive Heart Failure Hypertension Laura Lawson is a 72 y.o. female here for hospital follow-up. HPI PMHx: resistant HTN, HFpEF, DM II, KJ She was recently admitted to [facility] for acute on chronic HFpEF, hypertensive emergency [...] due to type 2 diabetes mellitus (CMS/HCC) [facility] current use of insulin ([facility]) Low back pain Morbid obesity ([facility]) Neoplasm of uncertain behavior of kidney Obstructive sleep apnea syndrome Osteoarthritis of knee Osteoporosis Peripheral venous insufficiency Polyneuropathy due to type 2 diabetes mellitus ([facility]) Preoperative evaluation to rule out surgical contraindication Pulmonary function studies abnormal Pure hypercholesterolemia Renal mass Skin sensation disturbance Type 2 diabetes mellitus without complication ([facility]) Umbilical hernia Uric acid nephrolithiasis NSTEMI (non-ST elevated myocardial infarction) ([facility]) Acute exacerbation of CHF (congestive heart failure) ([facility]) COVID-19 Acquired spondylolisthesis Acute on chronic diastolic heart failure ([facility]) Coronary artery disease (CAD) excluded Diastolic dysfunction GERD (gastroesophageal reflux disease) History of carpal tunnel surgery of right wrist Hyperlipidemia Impaired mobility and endurance Localized edema Lumbar radiculopathy Morbid obesity with body mass index (BMI) of 45.0 to 49.9 in adult ([facility] [facility]) Paresthesia of skin Primary osteoarthritis of both knees S/P drug eluting coronary stent placement Ulcer of foot due to type 2 diabetes mellitus ([facility]) Pericardial effusion Past Medical History: Diagnosis Date Abnormal ECG CHF (congestive heart failure) ([facility]) Coronary artery disease Diabetes mellitus ([facility]) Gout Hypertension Myocardial infarction ([facility]) Sleep apnea Family History Problem Relation Name [...] 15 mg by mout (more content not included)...[facility]02-12-2024 History of Present illness Narrative* Vlad Cesar MD - 07/21/2023 10:30 AM EST Subjective Patient ID: Laura Lawson is a 72 y.o. female who presents for Follow-up (Admitted to [facility] 07/02/23 dx: Covid,CHF exac., NSTEMI discharged home 07/07/23 started on farxiga, coreg stopped labetolol pt had follow up appt with cardiology 07/16/23). Flowsheet Row Patient Outreach from 07/09/2023 in [facility] with Soledad Guerrero RN Discharge Information ED or Hospital Discharge? Hospital Patient has been contacted within two business days of discharge Yes Discharge Date 07/07/23 Discharge Hospital [facility] [D/C Acute on Chronic heart Failure, exacerbation [...] Comments labs, ecg, CXR. Pt transferred from [facility] to [facility], tested positive for covid, negative for covid x2 at [facility]. Pt to follow with Cardiology, appt on 07/16 at 2:20pm. Neurology 08/19/23 [facility] Neurology in [place]. Pt reports no shortness of breath. Using [...] bedtime BD Insulin Syringe U/F 31G X 516 1 ML misc USE DIRECTED UNDER THE [...] the skin 2 (two) times a day. Useas instructed meloxicam (Mobic) 15 MG tablet TAKE [...] in the morning and 1 tablet (20 mg)in the evening. Take before meals. 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 documented in this encounterResearch Belton [id number] NoteCardiovascular Medicine [facility] SUBJECTIVE Chief Complaint Patient presents with Hypertension [...] Admission Diagnosis: NSTEMI (non-ST elevated myocardial infarction) ([facility]) [I21.4] HPI and Hospital course: Laura Lawson is an 72 y.o. female who came from [place] ED with N-STEMI, acute CHF exacerbation, and covid positive. Patient has past medical history of CAD with 4 stents placed. Plavix stopped in August 2022. patient had elevated BNP and troponin. glucose 391. Patient endorses chronic SOB but reports worsening prior to arrival to [place] ED. Denies cough. No heparin drip. patient was given Lasix 40 mg IV while at [facility]. Patient tested positive today for covid-19. Her [...] an inpatient. #COVID ? - positive at [place] but negative x 2 at [facility] - Remdesivir was discontinued - on room [...] Hyperglycemia due to type 2 diabetes mellitus ([facility]/HCC) [facility] current use of insulin ([facility]) Low back pain Morbid obesity ([facility]) Neoplasm of uncertain behavior of kidney Obstructive sleep apnea syndrome Osteoarthritis of knee Osteoporosis Peripheral venous insufficiency Polyneuropathy due to type 2 diabetes mellitus ([facility]) Preoperative evaluation to rule out surgical contraindication Pulmonary function studies abnormal Pure hypercholesterolemia Renal mass Skin sensation disturbance Type 2 diabetes mellitus without complication ([facility]) Umbilical hernia Uric acid nephrolithiasis NSTEMI (non-ST elevated myocardial infarction) ([facility]) Acute exacerbation of CHF (congestive heart failure) ([facility]) COVID-19 Past Medical History: Diagnosis Date Abnormal ECG CHF (more content not included)...[facility]02-07-2024 NotePatient here for follow up [facility] for CHF and NSTEMI. She was discharged [...] weakness. All other systems reviewed and are negative.[facility] 07-08-2023 Miscellaneous Notes* Telephone Encounter - Tasha Girard RN - 07/08/2023 4:03 PM EST This patient needs outpatient follow up in the [facility] [place] ([place]),also she needs 30-day event monitor. (Being done through [place]) * Telephone Encounter - Kasandra Henriquez - 07/08/2023 4:03 PM EST Called patient and vm is not set up. No answer Spoke with Latrice, patients roommate and transportation, and scheduled appt documented in this encounterL[facility] works [id number] Telephone encounter Note* Telephone Encounter - Tasha Girard RN - 07/08/2023 4:03 PM EST This patient needs outpatient follow up in the [facility] [place] ([place]),also she needs 30-day event monitor. (Being done through [place]) [employer]01-30-2024 Telephone encounter Note* Telephone Encounter - Kasandra Henriquez - 07/08/2023 4:03 PM EST Called patient and vm is not set up. No answer Spoke with Latrice, patients roommate and transportation, and scheduled appt [employer]01-29-2024 NoteHospital Medicine Discharge Summary Final Discharge Diagnosis: #Acute [...] Admission Diagnosis: NSTEMI (non-ST elevated myocardial infarction) (CMS/[facility]) [I21.4] HPI and Hospital course: Laura Lawson is an 72 y.o. female who came from [place] ED with N-STEMI, acute CHF exacerbation, and covid positive. Patient has past medical history of CAD with 4 stents placed. Plavix stopped in August 2022. patient had elevated BNP and troponin. glucose 391. Patient endorses chronic SOB but reports worsening prior to arrival to [place] ED. Denies cough. No heparin drip. patient was given Lasix 40 mg IV while at [facility]. Patient tested positive today for covid-19. Her [...] an inpatient. #COVID ? - positive at [place] but negative x 2 at [facility] - Remdesivir was discontinued - on room air #DMII insulin dependent - uncontrolled, HgbA1C 10.8 - patient was advised to have close follow-up with her PCP for further adjustment of her insulin regimen. Dear Dr. Arsenio MD, [place] is advised to follow up with you within 1-2 weeks. Follow-up with: Cardiology and Neurology Scheduled appointments: Future Appointments Date Time Provider Department Center 07/10/2023 3:00 PM HOLLEY Zamora [facility] [place] [facility] Your medication list START taking these [...] Your Medications These medications were sent to [facility]/pharmacy #[id number] [place] [place] [address] carvedilol 6.25 mg tablet dapagliflozin propanediol 10 mg miconazole 2 % vaginal cream Laura has No Known Allergies. Dispositi (more content not included)...[facility] 07-07-2023 Note Attestation signed by Devon Montes [...] Clinical Asst. Professor Department of Neurology-Stroke Contact: ([facility]) Disclaimer: Portions of the record/note may have been created with voice recognition software. Occasional wrong-word or '[id number]' substitutions may have occurred due to the [...] concerns please c (more content not included)... [facility]01-28-[facility] Progress [facility] - 07/06/2023 11:13 AM; Room: [address] [place] [address] Admission: 07/02/2023 11:39 PM; Length of stay: 4 days THE HOSPITALIST TEAM PREFERS TO USE [employer] CHAT FOR COMMUNICATION 7AM-7PM. IF I DO NOT RESPOND WITHIN 15 MINUTES, PLEASE PAGE ME/CALL THROUGH THE RETAIL ROUTE SUPERVISOR. FROM 7PM-7AM, PLEASE PAGE [phone](COVR) Code Status: Full Code Barriers to Discharge: [...] Principal Problem: NSTEMI (non-ST elevated myocardial infarction) (CMS/HCC) Active Problems: Benign essential hypertension Coronary atherosclerosis Dyspnea on exertion Hyperglycemia due to type 2 diabetes mellitus (CMS/HCC) Morbid obesity (CMS/HCC) Obstructive sleep apnea syndrome Peripheral venous insufficiency Acute exacerbation of CHF (congestive heart failure) ([facility]) COVID-19 Assessment and Plan #Acute on chronic [...] echo results #COVID ? - positive at [place] but negative x 2 at [facility] - will DC remdisivir - on room [...] LDL 108 07/03/2023 No results found for: [id number] , IRON , TIBC , C3 , C4 , JEREMIAH , CANCA , ASO , PSA , CEA , CA125 , CA199 , AFP , CA153 Imaging MR brain wo contrast Narrative: 0MR BRAIN WO CONTRAST 07/04/2023 10:21 PM CLINICAL INDICATIONS: Stroke, focal neurological deficit PROTOCOL: Multiplanar multisequence MRI (more content not included)...[facility]01-28-2024 Note Attestation signed by Elliott Clements MD [...] monitoring after discharge. ENRIQUE CARPENTER MD Neurointervantional Fellow.[facility]01-28-2024 Note Subjective F/U NSTEMI, COVID +, acute on Chronic HFpEF Assessed [...] -- -- 60 22 95 % -- 07/05/23 2020 (!) 100/40 36.4 ???C (97.5 ???F) -- [...] Principal Problem: NSTEMI (non-ST elevated myocardial infarction) ([facility]) Active Problems: Benign essential hypertension Coronary atherosclerosis Dyspnea on exertion Hyperglycemia due to type 2 diabetes mellitus ([facility]) Morbid obesity ([facility]) Obstructive sleep apnea syndrome Peripheral venous insufficiency Acute exacerbation of CHF (congestive heart failure) ([facility]) COVID-19 NSTEMI, Likely type II in setting [...] please call for any concerns Dulce Garcia NP Division of Cardiology, [facility]- [phone] Pager- [phone] Email- [email or web address]01-27-2024 NoteSpeech Language Pathology Speech Language Pathology Evaluation Patient Name: Laura Lawson : 1950 Today's Date: 07/05/2023 Date of Evaluation: 07/05/2023 General Subjective: Laura Lawson is an 72 y.o. female who came from [place] ED with N-STEMI, acute CHF exacerbation, and covid positive. Patient has past medical history of CAD with 4 stents placed. Chart Reviewed: Yes Treatment Duration (min): 15 Minutes Family/Caregiver Present: No Patient Active Problem List Diagnosis Allergic rhinitis Angiomyolipoma of kidney Benign essential hypertension Cerebrovascular disease Chronic foot ulcer ([facility]/HCC) Coronary atherosclerosis Decreased estrogen level Diabetic retinopathy associated with type 2 diabetes mellitus ([facility]/HCC) Diaphragmatic hernia Difficulty walking Dyspnea on exertion Generalized osteoarthritis Gout History of arthritis History of hysterectomy Hyperglycemia due to type 2 diabetes mellitus ([facility]/HCC) 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 of 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 ([facility]) Low back pain Morbid obesity ([facility]) Neoplasm of uncertain behavior of kidney Obstructive sleep apnea syndrome Osteoarthritis of knee Osteoporosis Peripheral venous insufficiency Polyneuropathy due to type 2 diabetes mellitus ([facility]) Preoperative evaluation to rule out surgical contraindication Pulmonary function studies abnormal Pure hypercholesterolemia Renal mass Skin sensation disturbance Type 2 diabetes mellitus without complication ([facility]) Umbilical hernia Uric acid nephrolithiasis NSTEMI (non-ST elevated myocardial infarction) ([facility]) Acute exacerbation of CHF (congestive heart failure) ([facility]) COVID-19 Past Medical History: Diagnosis Date Coronary artery disease Diabetes mellitus ([facility]) Gout Hypertension Sleep apnea Past Surgical History: Procedure Laterality Date BACK SURGERY CARDIAC CATHETERIZATION CARPAL TUNNEL RELEASE HYSTERECTOMY THYROID SURGERY General Visit Info General Subjective: Laura Lawson is an 72 y.o. female who came from [place] ED with N-STEMI, acute CHF exacerbation, and [...] Primary Mode of Expression: Verbal Primary Language: Nepali Repetition: Intact Sentence Completion: Intact Open Ended Questions: Intact Conversation: Intact Higher Level Cognitive Functions Higher Level Cognitive Functions Attention: Within Functional Limits Memory: Unable to assess (Unable to assess, due to pt hearing status.) Problem Solving: Within Functional Limits Insight: Within function limits Impulsive: Within functional limits Processing Speed: Within funtional limits Perseveration: Not present Assessment/Plan SUMMER LAW ASSOCIATE Assessment Medical Staff Made Aware: Yes Plan SUMMER LAW ASSOCIATE - OK to Discharge: Yes Written/Dictated by Gertrudis Marshall CCC-SUMMER LAW ASSOCIATE at 1:15 PMK[facility] Health [facility]01-27-2024 NoteHospital Medicine Daily Progress Note - 07/05/2023 12:18 PM; Room: [address] [place] [address] Admission: 07/02/2023 11:39 PM; Length of stay: 3 days THE HOSPITALIST TEAM PREFERS TO USE [employer] CHAT FOR COMMUNICATION 7AM-7PM. IF I DO NOT RESPOND WITHIN 15 MINUTES, PLEASE PAGE ME/CALL THROUGH THE RETAIL ROUTE SUPERVISOR. FROM 7PM-7AM, PLEASE PAGE [phone](COVR) Code Status: Full Code Barriers to Discharge: [...] Principal Problem: NSTEMI (non-ST elevated myocardial infarction) ([facility]) Active Problems: Benign essential hypertension Coronary atherosclerosis Dyspnea on exertion Hyperglycemia due to type 2 diabetes mellitus ([facility]) Morbid obesity ([facility]) Obstructive sleep apnea syndrome Peripheral venous insufficiency Acute exacerbation of CHF (congestive heart failure) ([facility]) COVID-19 Assessment and Plan #Acute on chronic [...] stroke team. #COVID ? - positive at [place] but negative x 2 at [facility] - will DC remdisivir - on room [...] LDL 108 07/03/2023 No results found for: [id number] , IRON , TIBC , C3 , [...] 10). Subtle T2 FLAIR (more content not included)...[facility]01-27-2024 NotePhysical Therapy Physical Therapy Evaluation Patient Name: Laura [...] acute heart failure exacerbation and COVID-positive at [facility]. 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 ([facility]) Low back pain Morbid obesity ([facility]) Neoplasm of uncertain behavior of kidney Obstructive sleep apnea syndrome Osteoarthritis of knee Osteoporosis Peripheral venous insufficiency Polyneuropathy due to type 2 diabetes mellitus ([facility]) Preoperative evaluation to rule out surgical contraindication Pulmonary function studies abnormal Pure hypercholesterolemia Renal mass Skin sensation disturbance Type 2 diabetes mellitus without complication ([facility]/HCC) Umbilical hernia Uric acid nephrolithiasis NSTEMI (non-ST elevated myocardial infarction) ([facility]) Acute exacerbation of CHF (congestive heart failure) ([facility]) COVID-19 Past Medical History: Diagnosis Date Coronary artery disease Diabetes mellitus ([facility]/HCC) Gout Hypertension Sleep apnea Past Surgical History: [...] Level of Function Prior Function Level of [place]: Independent with ADLs and functional transfers, Independent [...] Level tile Device 1: (more content not included)...[facility] 07-04-2023 NoteSpeech Language Pathology Speech/Language Pathology Clinical Swallow Assessment Recommendations Regular diet with thin liquids Hips at 90 degrees for all PO intake SUMMER LAW ASSOCIATE to follow for speech and language eval due to new onset aphasia this morning History of Present Illness 72 year old female admitted 07/02 as a transfer from [facility] after being found to have NSTEMI, acute [...] motor tasks may be due to pt [place]. Laryngeal Function Vocal Quality: Within Functional Limits [...] treatments: Follow up for speech and language evaluationK[facility]tering Health [facility]01-26-2024 NoteHospital Medicine Daily Progress Note - 07/04/2023 9:31 AM; Room: [address] [place] [address] Admission: 07/02/2023 11:39 PM; Length of stay: 2 days THE HOSPITALIST TEAM PREFERS TO USE [employer] CHAT FOR COMMUNICATION 7AM-7PM. IF I DO NOT RESPOND WITHIN 15 MINUTES, PLEASE PAGE ME/CALL THROUGH THE RETAIL ROUTE SUPERVISOR. FROM 7PM-7AM, PLEASE PAGE [phone](COVR) Code Status: Full Code Barriers to Discharge: [...] Principal Problem: NSTEMI (non-ST elevated myocardial infarction) ([facility]) Active Problems: Benign essential hypertension Coronary atherosclerosis Dyspnea on exertion Hyperglycemia due to type 2 diabetes mellitus ([facility]) Morbid obesity ([facility]) Obstructive sleep apnea syndrome Peripheral venous insufficiency Acute exacerbation of CHF (congestive heart failure) ([facility]) COVID-19 Assessment and Plan NSTEMI, Likely type [...] on 07/04 COVID ? - positive at [place] but negative x 2 at [facility] - will DC remdisivir - on room [...] LDL 108 07/03/2023 No results found for: [id number] , IRON , TIBC , C3 , [...] on 07/03/2023 9:02:17 AM (more content not included)...[facility]01-25-2024 Note07/03/23 1229 Admission Assessment Questions Verify insurance with [...] Discharge? Yes Does the patient have a behavioral health case manager assigned to them through their insurance? No [...] able to send link and activate MyChart? NoUnMercy Health St[facility]01-25-2024 NoteClinical Nutrition Assessment Name: Laura Lawson Date: 1950 Date of [...] with questions and contact the dietitian via [employer] chat 8A-4P Friday-Friday. Or call the dietitian's office at extension [phone]. For weekends/holidays, the dietitian's can be reached by paging [phone] from 9A-3P. Unable to be reached via [employer] chat on Friday & s.)[facility]01-25-2024 NotePharmacy Dosing Service - Remdesivir Initial Consult Note Pharmacy has [...] Thank you, Parish Fernandez, PharmD, MS, BCPS 07/03/2023[facility]01-25-2024 NoteHospital Medicine History and Physical 07/03/2023 12:01 AM THE HOSPITALIST TEAM PREFERS TO USE [employer] CHAT FOR COMMUNICATION 7AM-7PM. IF I DO NOT RESPOND WITHIN 15 MINUTES, PLEASE PAGE ME/CALL THROUGH THE RETAIL ROUTE SUPERVISOR. FROM 7PM-7AM, PLEASE PAGE [phone](COVR) Chief Complaint Patient transfer/direct admit from [place] [facility] to [facility] for NSTEMI, CHF Exacerbation, and COVID-19 + History of Present Illness Laura Lawson is an 72 y.o. female who came from [place] ED with N-STEMI, acute CHF exacerbation, and covid positive. Patient has past medical history of CAD with 4 stents placed. Plavix stopped in August 2022. Troponin 180--> 179. BNP 19,000. Glucose 391Patient endorses chronic SOB but reports worsening prior to arrival to [place] ED. Denies cough. No heparin drip. Was given Lasix 40 mg IV while at [facility]. Patient tested positive today for covid-19. Her chest X-ray shows decreased lung volume w/ moderate elevation of left hemidiaphragm, compression atelectasis associated w/ the left hemidiaphragm. Patchy densitied w/in left perihilar region noted and are suggestive of atelectasis and or infiltrate. Peribronchial cuffing w/in both hilar regions observed and may be associated with bronchitis. Per [place] ED, patient SpO2 was good, just feels like she isn't getting enough air into her lungs . Chest X-ray showed cardiomegaly with vascular congestion and bilateral effusions. EKG sinus rhythm, first degree AV block, anterolateral myocardial infarction, probably recent. Possible right ventricular hypertrophy. Meds given in [place] ED: nitroglycerin 0.4 mg SL X2, ASA [...] Date Noted NSTEMI (non-ST elevated myocardial infarction) ([facility]) 07/02/2023 Difficulty walking 04/24/2021 Pure hypercholesterolemia 09/20/2020 Osteoporosis 03/08/2020 Peripheral venous insufficiency 01/10/2020 Polyneuropathy due to type 2 diabetes mellitus ([facility]) 01/10/2020 Chronic foot ulcer ([facility]) 11/25/2019 Skin sensation disturbance 11/05/2019 Decreased estrogen level 07/28/2019 Diabetic retinopathy associated with type 2 diabetes mellitus ([facility]) 10/31/19 (more content not included)...[facility] 03-13-2023 Evaluation note* Encounter Date Diagnosis Assessment Notes Treatment Notes Treatment Clinical Notes Mar, Spondylolisthesis, lumbar region (ICD-10 - M43.16) The patient [...] of view she is done very well. [employer] Other 09-20-2023 NoteHypertension is controlled currently 136/67 Renal function stable from labs 05/2022, K+ normal Continue candesartan, hydralazine, labetolol, torsemideUnMercy Health St. [facility]09-20-2023 NoteContinue torsemide F/U with PCP Continue to wear compression to BLEUnMercy Health St. [facility]09-20-2023 NoteContinue lipitor Script completed for lipid level- last lipids noted in chart is from 2020 Reviewed labs 05/2022 and [facility] NoteCoronary artery disease is stable Continue GDMT- ASA, lipitor, labetolol continue risk factor modifications- heart healthy diet, regular exercise as tolerated and continue all medications. 136/67- 57[facility]2023 NoteUTP CARDIOLOGY PROGRESS NOTE HPI: Laura Lawson [...] Continue candesartan, hydralazine, labetolol, torsemide RTC [facility] Evaluation note* Encounter Date Diagnosis Assessment Notes [...] back in 6 months with another x-ray. [facility] Other 01-05-2023 Evaluation note* Encounter Date Diagnosis [...] Jun, Spondylolisthesis, lumbar region (ICD-10 - M43.16) [facility] Other 11-10-2022 Evaluation note* Encounter Date Diagnosis [...] Apr, Spondylolisthesis, lumbar region (ICD-10 - M43.16) [facility] Other 10-14-2022 Progress note Author Abner Roa [facility] March 22, 2022 6:34am Note Date/Time March 22, 2022 6 :34am [facility] [address] [place] [address] Neurosurgery Progress Note Signed Patient: Laura Lawson MR#: [id number] : 1950 Acct:[id number] Age/Sex: 71 / F Adm Date: 2 Loc: Room: 8I1332-9 Type: ADM IN Attending Dr: Abner Roa [...] <Electronically signed by MD Abner Roa> 03/22/2234 [facility] Work Phone: 1(676) 600-254410-13-2022 Progress note Author Abner Roa [facility] March 21, 2022 7:43am Note Date/Time March 21, 2022 7 :43am [facility] [address] [place] [address] Neurosurgery Progress Note Signed Patient: Laura Lawson MR#: [id number] : 1950 Acct:[id number] Age/Sex: 71 / F Adm Date: 2 Loc: 4 Room: [address] [place] [address] Type: ADM IN Attending Dr: Abner Roa [...] <Electronically signed by MD Abner Roa> 03/21/2243 [facility] Work Phone: 1(925) 884-147610-12-2022 Progress note Author Abner Roa [facility] March 20, 2022 10:22am Note Date/Time March 20, 2022 1 0:22am [facility] [address] [place] [address] Neurosurgery Progress Note Signed Patient: Laura Lawson MR#: [id number] : 1950 Acct:[id number] Age/Sex: 71 / F Adm Date: 2 Loc: Room: [address] [place] [address] Type: ADM IN Attending Dr: Abner Roa [...] Glucose 245, POC Glucose Comment Will notify dr/pillowcase turner/Plan Assessment/Plan (1) Lumbar stenosis with neurogenic claudication: [...] <Electronically signed by MD Abner Roa> 03/20/22 102 [facility] Work Phone: 1(189) 263-529210-11-2022 Progress note Author Abner Roa [facility] March 19, 2022 7:33am Note Date/Time March 19, 2022 7 :33am [facility] [address] [place] [address] Neurosurgery Progress Note Signed Patient: Laura Lawson MR#: [id number] : 1950 Acct:[id number] Age/Sex: 71 / F Adm Date: 2 Loc: Room: [address] [place] [address] Type: ADM IN Attending Dr: Abner Roa [...] early movement Documented By: Abner Roa MD 03/19/2231 Signed By: <Electronically signed by MD Abner Roa> 03/19/22 0733 [facility] Work Phone: 1(244) 726-914808-09-2022 Evaluation note* Encounter Date Diagnosis Assessment Notes [...] stenosis with neurogenic claudication (ICD-10 - M48.062) [facility] Other 07-01-2022 Evaluation note* Encounter Date Diagnosis [...] - G89.29) Continue with current treatment plan [facility] Other 06-30-2022 Evaluation note* Encounter Date Diagnosis [...] Asymptomatic age-related postmenopausal state (ICD-10 - Z78.0) [facility] Other 06-02-2022 Evaluation note* Encounter Date Diagnosis [...] - G89.29) Continue with current treatment plan [facility] Other 05-18-2022 Evaluation note* Encounter Date Diagnosis [...] - G89.29) Continue with current treatment plan [facility] Other 05-09-2022 Evaluation note* Encounter Date Diagnosis [...] greater trochanteric bursa injection in the future. [facility] Other 04-19-2022 Evaluation note* Encounter Date Diagnosis [...] negative findings were considered in medical decision-making. [facility] Other Consult note* Clinical Note Date No Information [facility] Work Phone: Discharge summary* Clinical Note Date No Information [facility] Work Phone: Evaluation noteNo Information[facility] Other Evaluation noteNo assessment information available [facility] Work Phone: Evaluation note* Diagnosis Onset Date Resolution Status Lumbar stenosis with neurogenic claudication acute [facility] Work Phone: Evaluation note* Diagnosis Onset [...] urnal bilevel positive airway pressure (BPAP) acute [facility] Work Phone: Evaluation note* Diagnosis COVID- Primary NSTEMI (non-ST elevated myocardial infarction) (CMS/[facility]) Acute myocardial infarction, subendocardial infarction, episode of care unspecified Acute on chronic diastolic heart failure ([facility]) Acute on chronic diastolic heart failure Type 2 diabetes mellitus with hyperglycemia, with long-term current use of insulin ([facility]) 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) Morbid (severe) obesity due to excess calories (E66.01) Body mass index [BMI] 45.0-49.9, adult (Z68.42) Atherosclerosis of [place] coronary artery of [place] heart with angina pectoris ([facility]) documented in this encounter [facility] HealthcareEvaluation note* Diagnosis TIA (transient ischemic attack)- Primary Unspecified transient cerebral ischemia Bilateral carpal tunnel syndrome Carpal tunnel syndrome documented in this encounter [facility] SystemEvaluation note* Diagnosis Onset Date Resolution Status History of lumbar fusion acu te Spondylolisthesis, lumbar region acute [facility] Work Phone: History and physical note* Clinical Note Date No Information [facility] Work Phone: Hisllqi general Narrative - Reported* Type Description Date Medical History diabetes Medical History obstructive sleep apnea Surgical History total hysterectomy Surgical History hernia repair Surgical History neck mass removal [facility] Other Hisivbc general Narrative - Reported* Type Description Date Medical History diabetes Medical History obstructive sleep apnea Surgical History total hysterectomy Surgical History hernia repair Surgical History neck mass removal Hospitalization History See Above [facility] Other Hospital Discharge instructions Additional Instructions DISCHARGE [...] for back spasm 20 [facility] Work Phone: InstructionsNot on filedocumented in this encounter [facility] SystemInstructionsNot on filedocumented in this encounter [facility] SystemProgress note* Clinical Note Date No Information [facility] Work Phone: Rewkfq for referral (narrative)* Consultation (Routine) - Pending Review Specialty Diagnoses / Procedures Referred By Contmarina t Referred To Contact Neurology Diagnoses Bilateral carpal tunnel syndrome Robbi Uribe MD [address] [place] [address], [address] [place] [address] Casey العلي MD [address] [place] [address], [address] [place] [address] Referral ID Status Reason Start Date Expiration Date Visits Requested Visits Authorized [id number] Pending Review Specialty Services Required 08/19/2023 08/18/2024 1 1 [facility] SystemReason for referral (narrative)* Reason For Referral No Information [facility] Work Phone: Reason for visit NarrativeNeurosurgery Referral Update [facility] Other Summary Purpose Family History No Family History Records Found Relationship Condition Age at Onset Recorded Date/T mirella father Diabetes mellitus Unknown Hypertension Unknown Not Specified Malignant neoplasm of skin Unknown Relationship Condition Age at Onset Recorded Date/T mirella father Diabetes mellitus Unknown Hypertension Unknown Not Specified Malignant neoplasm of skin Unknown Not Specified Diabetes mellitus Unknown Heart disease Unknown Malignant neoplasm Unknown Family Member Type Diagnosis Age At Onset Father Problem (finding) High cholesterol Problem Family history o f Diabetes mellitus Maternal Grandfather Problem (finding) Family history of Cancer, breast Mother Problem (finding) Arthritis Problem Family history o f Macular degeneration Father Problem (finding) Hypertension Problem Family history o f Cardiovascular disease Advance Directives No Advanced Directives Records Found Advance Directive Response Recorded Date/ Time Advance Directives No December 11 10:57am Advance Directive Response Recorded Date/ Time Advance Directives No December 11 9:57am Directive Yes / No Effective Date File Name No Information Reason for Referral Reason leg strengthening, g ait training, balance Diagnosis 1 Spondylolisthesis, l umbar region (M43.16) Referral Organization [facility] Referring Provider First Name Abner Referring Provider Last Name Janina Referring Provider Specialty Neurologica l Surgery Referred Organization [facility] Referred Address ,[place], [place],[address] Referred Provider Specialty Physical The rapist Referral Priority Routine Reason Evaluate and Treat O utPatient PT in [place] for Gait Training and Leg Strengthening Diagnosis 1 Lumbar radiculopathy (M54.16) Referral Organization [facility] Referring Provider First Name Abner Referring Provider Last Name Janina Referring Provider Specialty Neurologica l Surgery Referred Organization [facility] uling Referred Address [address] [place], [place],[address] Referred Provider Specialty Physical The rapist Referral Priority Routine Reason eval and treat Diagnosis 1 Lumbar radiculopathy (M54.16) Referral Organization [facility] Pain Managemen t Referring Provider First Name Devang Referring Provider Last Name Keri Referring Provider Specialty Pain Medici ne Referred Organization [facility] Last anthony Co Referred Provider Vlad Georges Referred Address [address] [facility],[place], [place],[id number] Referred Provider Specialty Neurosurgery Referral Priority Routine [...] section and content) DATE CREATED AUTHOR 08/19/2018 [facility] DATE CREATED AUTHOR AUTHOR'S ORGANIZ ATION 03/17/2020 [facility] DATE CREATED AUTHOR AUTHOR'S ORGANIZ ATION 11/19/2022 [facility] DATE CREATED AUTHOR AUTHOR'S ORGANIZ ATION 10/25/2023 [facility] DATE CREATED AUTHOR AUTHOR'S ORGANIZ ATION 12/05/2023 [facility] DATE CREATED AUTHOR AUTHOR'S ORGANIZ ATION 12/16/2023 [facility] DATE CREATED AUTHOR AUTHOR'S ORGANIZ ATION 01/11/2024 [facility] DATE CREATED AUTHOR AUTHOR'S ORGANIZ ATION 03/03/2024 [facility] EPIC REASON FOR VISIT (unrecogniz ed section and content) Reason Comments Follow-up Admitted to [facility] 06/10 09/30 dx: Covid,CHF exac., NSTEMI discharged [...] Active Member Role Status Dates Vlad Cesar , II MD Primary Care Provider Active Team [...] MD Other Provider Active Latonia Ely , CLINICAL AUDITOR-C Other Provider Active Roman Rosales MD Other [...] Active Abner Roa MD Attending Provider Active Pharmacy Sales Assistant Relationship Specialty Start Date End Date Vlad Cesar MD [address] [place] [address] PCP - General Internal Medicine 10/21/22 Vlad Cesar MD [address] [place] [address] PCP - [facility] 10/31/22 Team Status: Inactive Member Role Status Dates Vlad Cesar II MD Primary Care Provider Active Start: October 23, 2023 End: October 23, 2023 Abner Roa MD Attending Provider Active Star t: October 23, 2023 End: October 23, 2023 Name Effective Dates (start - stop) Status Members No Information Goals (unrecognized section and content) Goals may [...] BE BASED ON THE PRIMARY CLINICAL RECORDS. [facility]. provides no warranty or guarantee of the accuracy or completeness of information in this document.
[2024-03-03 09:17] LABS: Basophils Absolute Auto 0.1 10^3/uL (0.0-0.1); Basophils Percent Auto 0.6 % (0.2-2.0); Eosinophils Absolute Auto 0.3 10^3/uL (0.0-0.7); Eosinophils Percent Auto 3.4 % (0.9-7.0); Hematocrit 42.8 % (36.0-48.0); Hemoglobin 12.9 g/dL (12.0-16.0); Immature Granulocytes Abs Auto 0.02 10^3/uL (0.00-0.03); Immature Granulocytes Pct Auto 0.2 % (0.0-0.5); Lymphocytes Absolute Auto 1.7 10^3/uL (1.2-3.8); Lymphocytes Percent Auto 18.2 % (20.5-60.0); Mean Corpuscular HGB Conc 30.1 g/dL (29.9-35.2); Mean Corpuscular Hemoglobin 27.5 pg (26.7-34.0); Mean Corpuscular Volume 91.3 fL (81.0-99.0); Mean Platelet Volume 9.1 fL (9.5-13.5); Monocytes Percent Auto 10.2 % (1.7-12.0); Neutrophils Absolute Auto 6.4 10^3/uL (1.4-6.5); Neutrophils Percent Auto 67.4 % (43.0-75.0); Platelet Count 259 10^3/uL (150-450); Red Blood Count 4.69 10^6/uL (4.20-5.40); Red Cell Distribution Width 17.2 % (11.0-15.0); White Blood Count 9.5 10^3/uL (4.0-11.0)
[2024-03-03 09:58] LABS: Alanine Aminotransferase 29 U/L (14-59); Albumin Globulin Ratio 1.1; Albumin Level 3.4 g/dL (3.4-5.0); Alkaline Phosphatase 113 U/L (46-116); Anion Gap 10.2; Aspartate Amino Transferase 24 U/L (15-37); BUN Creatinine Ratio 34.7; Bilirubin Total 0.7 mg/dL (0.2-1.0); Calcium 9.7 mg/dL (8.5-10.1); Carbon Dioxide 27.1 mmol/L (21.0-32.0); Chloride 103 mmol/L (98-107); Chol HDL Ratio 1.6; Cholesterol 131 mg/dL (<=200); Estimated GFR (African America >60 (>=60); Estimated GFR (Non-African Ame >60 (>=60); Globulin 3.2 g/dL; Glucose 189 mg/dL (74-106); HDL Cholesterol 83 mg/dL (40-60); Potassium 4.3 mmol/L (3.5-5.1); Sodium 136 mmol/L (136-145); Total Protein 6.6 g/dL (6.4-8.2); Triglycerides 45 mg/dL (<=150)
== END 2024-03-03 08:47 | disposition home or self-care (01) ==
LOC: LAB 08:48
PROVIDERS: PCP Internal Medicine; Visit Provider Internal Medicine Interventional Cardiology
DX: I25.118 Atherosclerotic heart disease of native coronary artery with other forms of angina pectoris (principal); E78.2 Mixed hyperlipidemia
CPT/HCPCS: 36415; 80053; 80061; 85025

== ENCOUNTER 2024-03-23 12:26 | Outpatient (OUT) | payer MEDICARE, OTHER, SELFPAY ==
--- OUTSIDE RECORDS SUMMARY | 2024-03-23 12:35 | XMS_ITS | CCD ---
Author Organization [facility] Care Team Providers Care Court Interpreter Name Role Phone PHYSICIAN, DEFAULT Admitting Unavailable PHYSICIAN, DEFAULT Attending Unavailable VLAD CESAR Primary Care Unavailable PHYSICIAN, DEFAULT Admitting Unavailable PHYSICIAN, DEFAULT Attending Unavailable VLAD CESAR Primary Care Unavailable Devang Saavedra Unavailable Abner Roa Unavailable MD Abner Roa Attending Provider [phone] MARK Cesar Primary Care Provider MD Abner Roa Admit Provider MARK Cesar Primary Care Provider [phone] MD Abner Roa Attending Provider [phone] MD Chidi Bowen Admit Provider MD Chidi Bowen Attending Provider [phone] KENDALL Mancilla Other Provider Unavailable KENDALL Linares Other Provider Unavailable KENDALL Benson Other Provider Unavailable KENDALL Borges Other Provider Unavailable KENDALL Luong Other Provider Unavailable KENDALL Gardner Other Provider Unavailable MD Meliton Scwhartz Other Provider MD Fred Nash Other Provider DOTTY Serrano Other Provider [phone] DO Yesi Dickens Other Provider [phone] MD Alfredo Lacy Other Provider [phone] DO Graeme Davey Other Provider [phone] MD James Child Other Provider [phone] MD Chel Juarez Other Provider Kimmie, ANP-BC [...] Other Provider DO Ziggy Vernon Other Provider [phone] DOTTY Degroot Other Provider DO Noam Albarado Other Provider MD Jacobo Montes Other Provider Kristie RN Fariha Other Provider Unavailable MARK Cesar [...] Provider MD Fred Nash Other Provider Dials, CLEANING ASSOCIATE Mirtha M Other Provider DO Yesi Dickens [...] Edwardo Ramirez Other Provider DO Janeen Ziggy Dunn Other Provider DOTTY Degroot Other Provider DO Noam Albarado Other Provider MD Jaocbo Montes M Other Provider KENDALL Flowers Other Provider Unavailable Arsenio, II Vlad Primary Care Provider MD Abner oRa Attending Provider Cesar, II Vlad Primary Care [...] Provider UnavailVlad Leon MD Primary Care Provider [phone] Vlad Cesar MD Unavailable [phone] Abner Roa Admitting Unavailable Abner Roa Attending Unavailable Vlad Cesar Primary Care Unavailable Abner Roa Admitting Unavailable Abner Roa Attending Unavailable Vlad Cesar Primary Care Unavailable Abner Roa Admitting Unavailable Abner Roa Attending Unavailable Vlad Cesar Primary Care Unavailable Arsenio, MARK Chu Primary Care Provider [phone] MD Abner Roa Attending Provider [phone] ROBBI URIBE Attending Unavailable CASEY العلي Attending Unavailable ROBBI URIBE Referring Unavailable Lance Contreras MD, May Unavailable Unavailable JOSHUA GRIDER Referring Unavailable JULITO ZENDEJAS Attending Unavailable NIRAJ SAN Attending Unavailable DALE ACOSTA Referring Unavailable DAVE, DALE Referring Unavailable ZENIVORY Gold Referring Unavailable MOUKAJULITO BRAVO Attending Unavailable MOUKASHELLY, JULITO Admitting Unavailable ANGELIKA SANTOS Referring Unavailable MOUKARBELJULITO Attending Unavailable NIRAJ SAN Attending Unavailable SHAWNA LEBLANC Referring Unavailable NIRAJ SAN Attending Unavailable MOJULITO SCOTT Attending Unavailable MOUKASHELLY, JULITO Referring Unavailable MOUKARBLANCE, JULITO Referring Unavailable ZENIVORY Gold Referring Unavailable MOUKASHELLY, JULITO Referring Unavailable RUPERTO GONZALES Attending Unavailable JOSHUA GRIDER Admitting Unavailable ALEX, IVON Admitting Unavailable UNKNOWN, UNKNOWN Referring Unavailable DEANA, SHAWNA Attending Unavailable MARY, JULITO Referring Unavailable DAVEDALE Gold Referring Unavailable Al Paul, Hemant Attending Unavailable Al Paul, Hemant Referring Unavailable Corporate, Doctor Attending Unavailable El Rashedy, May Attending Unavailable El Rashedy, May Referring Unavailable Hemant Estrella Attending Unavailable Hemant Estrella Referring Unavailable VLAD CESAR Attending Unavailable MYA FELIX Attending Unavailable VLAD CESAR Attending Unavailable VLAD CESAR Attending Unavailable MYA FELIX Attending Unavailable VLAD CESAR Attending Unavailable VLAD CESAR Attending Unavailable HEMNATI MACK Attending Unavailable JAYDEN MARK Attending Unavailable HEMMER, NATI Dunn Referring Unavailable JAYDEN MARK Attending Unavailable HEMMERNATI Referring Unavailable JOHN MCKAY Attending Unavailable HEMMERNATI Referring Unavailable JOHN MCKAY Attending Unavailable HEMMER, NATI Dunn Referring Unavailable JOHN MCKAY Attending Unavailable HEMMER, NATI M Referring Unavailable JOHN MCKAY Attending Unavailable HEMMER, NATI M Referring Unavailable JOHN MCKAY Attending Unavailable HEMMER, NATI M Referring Unavailable VLAD CESAR Attending Unavailable JOHN MCKAY Attending Unavailable HEMMER, NATI Dunn Referring Unavailable JOHN MCKAY Attending Unavailable HEMMER, NATI M Referring Unavailable LORELEI GARRIDO Attending Unavailable HEMMER, NATI M Referring Unavailable NARINDER MEREDITH Attending Unavailable JOHN MCKAY Attending Unavailable HEMMER, NATI M Referring Unavailable JAYDEN MARK Attending Unavailable HEMMER, NATI Dnun Referring Unavailable JOHN MCKAY Attending Unavailable HEMMER, NATI M Referring Unavailable JOHN MCKAY Attending Unavailable NATI VIRK Referring Unavailable VLAD CESAR Attending Unavailable JAYDEN MARK Attending Unavailable NATI VIRK Referring Unavailable JOHN MCKAY Attending Unavailable NATI VIRK Referring Unavailable VLAD CESAR Attending Unavailable Allergies Allergy Classification Reported Allergen(s) Allergy Type Date of Onset Reaction(s) Facility (1 source) 31115,00; Translations: [46135,00] Propensity to adverse reactions (disorder) 9 [facility] Repository (20 sources) gabapentin; Translations: [GABAPENTIN] Drug Allergy 2 Palpitations [facility] (16 sources) traMADol; Translations: [tramadol] Drug Allergy 2 Other [facility] (1 source) gabapentin Drug Allergy 4 [facility] Repository (1 source) Penicillin; Translations: [PENICILLIN] Drug Allergy 4 [facility] Medications Current Medications Medication Drug Class(es) Dates Sig (Normalized) Sig (Original) acetaminophen 325 mg oral tablet (13 sources) Start: 03-21-2022 End: 04-03-2022 take 650 mg by mouth every four hours Acetaminophen Active 650 MG PO Q4H 100 April 03, 2022 12:00am allopurinol 300 mg oral tablet (20 sources) Xanthine Oxidase Inhibitor Start: 11-05-2023 take 1 tablet by mouth in the morning allopurinoL (ZYLOPRIM) 300 mg tablet Take 1 tablet (300 mg total) by mouth in the morning. 11/05/2023 Active Start: 03-05-2022 End: 04-03-2022 allopurinol (Zyloprim) 300 M G tablet Indications: Gout, unspecified cause, unspecified chronicity, [...] mg total) by mouth in the morning. 07/31/2023 07/30/2024 Active Start: 03-05-2022 End: 04-03-2022 [...] tablet (20 sources) gamma-Aminobutyric Acid-ergic Agonist Start: 03-15-2024 take 1 tablet by mouth in the morning baclofen (Lioresal) 10 MG tablet Indications: Muscle spasm Take 1 tablet (10 mg) by mouth in the morning and 1 tablet (10 mg) before bedtime. 200 tablet 2 03/15/2024 Active Start: 03-15-2024 take 1 tablet by annabel th in the morning baclofen (Lioresal) 10 MG tablet Indications: Muscle spasm Take 1 tablet (10 mg) by mouth in the morning and 1 tablet (10 mg) before bedtime. 200 tablet 2 03/15/2024 Active Start: 08-13-2023 End: 03-15-2024 take 1 tablet by mouth in the morning, then take 1 tablet by mouth at bedtime baclofen (LIORESAL) 10 mg tablet Take 1 tablet (10 mg total) by mouth in the morning and 1 tablet (10 mg total) before bedtime. 08/13/2023 Active Start: 03-05-2022 End: 04-03-2022 take [...] 2022 8:52am carvedilol 6.25 mg oral tablet (8 sources) alpha-Adrenergic Oniel, beta-Adrenergic Oniel Start: 02-05-2024 carvedilol (Core g) 6.25 MG tablet Indications: NSTEMI (non-ST elevated myocardial infarction) (CMS/HCC) TAKE 1 TABLET IN THE MORNING AND IN THE EVENING. TAKE WITH MEALS 200 tablet 3 02/05/2024 Active Start: 07-07-2023 End: 10-10-2023 take 1 tablet by mouth in the morning, then take 1 tablet by mouth at bedtime carvediloL (COREG) 6.25 mg tablet Take 1 tablet (6.25 mg total) by mouth in the morning and 1 tablet (6.25 mg total) before bedtime. 0 07/07/2023 10/10/2023 Active clopidogrel 75 mg oral tablet (20 sources) [id number] Platelet Inhibitor Start: 10-10-2023 End: 10-04-2024 take 1 tablet by mouth in the morning clopidogrel (Plavix) 75 MG tablet Indications: NSTEMI (non-ST elevated myocardial infarction) ([facility]) Take 1 tablet (75 mg) by mouth in the morning. 90 tablet 10/13/2023 Active Start: 03-05-2022 End: 04-03-2022 take 1 tablet by mouth once daily Clopidogrel (Plavix) 75 mg Tablet Discontinued 75 MG PO Daily March 05, 2022 12:00am April 03, 2022 8:52am clotrimazole 20 mg/ml vaginal cream (3 sources) Azole Antifungal Start: 12-13-2023 [facility] Clotrimazole 3 2 % vaginal cream INSERT 1 APPLICATORFUL VAGINALLY AT BEDTIME FOR 5 NIGHTS 12/13/2023 Active cyclobenzaprine hydrochloride 10 mg oral tablet (13 sources) Muscle Relaxant Start: 03-21-2022 End: 04-03-2022 take 10 mg by mouth every eight hours Cyclobenzaprine Active 10 MG PO Every 8 hours April 03, 2022 12:00am dapagliflozin 10 mg oral tablet (8 sources) Sodium-Glucose Cotransporter 2 Inhibitor Start: 02-26-2024 dapagliflozin (Farxiga) 10 MG Indications: Type 2 diabetes mellitus with diabetic polyneuropathy, with long-term current use of insulin ([facility]) TAKE 1 TABLET DAILY 100 tablet 3 02/26/2024 Active Start: 07-08-2023 End: 10-10-2023 take 1 tablet [...] 03, 2022 8:52am take 1 capsule by [facility] every twenty-four hours Stool Softener 100 MG 1 capsule as needed Orally Once a day Active docusate sodium 50 mg / sennosides, jail 8.6 mg oral tablet (13 sources) Start: [...] mg under the skin once a week. 05/15/2023 Active Start: 04-03-2022 Dulaglutide (T rulicity) Active 1.5 MG SUBCUT Laguerre@0900 1 April 02, 2022 11:00pm Start: 04-03-2022 Dulaglutide (T rulicity) Active 1.5 MG SUBCUT Laguerre@0900 1 April 03, 2022 12:00am Start: 03-05-2022 End: 04-03-2022 Dulaglutide (Trulicity) 1.5 mg/0.5 mL Pen Injector Discontinued 1.5 MG SUBCUT every week March 05, 2022 12:00am April 03, 2022 8:52am dulaglutide (Trulicity) 3 MG/0.5ML solution pen-injector (3 sources) Start: 12-25-2023 inject 3 mg by subcutaneous injection every week dulaglutide (Trulicity) 3 MG/0.5ML solution pen-injector Indications: Type 2 diabetes mellitus with diabetic polyneuropathy, with long-term current use of insulin ([facility]) Inject 3 mg under the skin 1 (one) time per week 4 each 12/25/2023 Active ezetimibe 10 mg oral tablet (5 sources) Dietary Cholesterol Absorption Inhibitor Start: 10-14-2023 End: 12-24-2024 take 1 tablet by mouth in the morning ezetimibe (Zetia) 10 MG tablet Indications: Type 2 diabetes mellitus with diabetic polyneuropathy, with long-term current use of insulin (CMS/HCC) Take 1 tablet (10 mg) by mouth in the morning. 30 tablet 11 12/25/2023 12/24/2024 Active gabapentin 100 mg oral capsule (2 sources) Anti-epileptic Agent Start: 11-08-2021 Gabapentin 100 MG 1 capsule Orally start daily at bedtime and increase by 1 tablet every 5 days until taking three times daily for 30 day(s) Nov, Active HANDICAP PLACARD 5 YEAR (5 sources) Start: 12-02-2022 HANDICAP PLACARD 5 YEAR Indications: Diastolic congestive heart failure, unspecified HF chronicity (CMS/HCC) , Gout, unspecified cause, unspecified chronicity, unspecified site 5 Units by Other route in the morning. 5 Year Duration for Handicap Placard. 1 Units 4 12/02/2022 Active hydrALAZINE hydrochloride 25 mg oral tablet (20 sources) Arteriolar Vasodilator Start: 10-16-2023 take 1 tablet by mouth in the morning hydrALAZINE (Apresoline) 25 MG tablet Take 25 mg by mouth in the morning and 25 mg before bedtime. 10/16/2023 Active Start: 11-22-2022 take 1 tablet by annabel th three times daily hydrALAZINE (APRESOLINE) 100 mg tablet Take 1 tablet (100 mg total) by mouth 3 (three) times a day. 11/22/2022 Active Start: 04-03-2022 take 100 mg [...] meals and bedtime March 21, 2022 12:00am 3 ml insulin glargine 300 unt/ml pen injector (20 sources) Insulin Analog Start: 06-15-2023 inject 300 [IU] by subcutaneous injection in the morning TOUJEO MAX U-300 SOLOSTAR 300 unit/mL (3 mL) insulin pen Inject 300 mL under the skin in the morning. 06/15/2023 Active Start: 04-03-2022 Insulin Glargi ne [...] Units under the skin in the morning. 11/19/2021 Active Toujeo SoloStar U-300 Insulin 300 [...] total) in the evening. Inject before meals. 07/09/2023 Active Start: 07-09-2023 Insulin Lispro (HumaLOG) 100 UNIT/ML solution Indications: Type 2 diabetes mellitus with other specified complication, with long-term current use of insulin ([facility]) Inject 25 Units under the skin in the morning and 25 Units at noon and 25 Units in the evening. Inject before meals. 07/09/2023 Active Start: 03-05-2022 End: 04-03-2022 inject [...] MG PO Daily April 03, 2022 12:00am Klayesta [id number] UNIT/GM powder (3 sources) Start: 12-13-2023 Klayesta 61801 0 UNIT/GM powder Apply 1 application topically in the morning and 1 application before bedtime. 12/13/2023 Active labetalol hydrochloride 200 mg oral tablet (20 sources) beta-Adrenergic Oniel Start: 04-03-2022 take 200 mg by mouth twice daily Labetalol Active 200 MG PO Twice daily 60 April 03, 2022 12:00am Start: 03-05-2022 [...] mg total) by mouth in the morning. 05/09/2023 Active Start: 03-05-2022 End: 04-03-2022 take [...] 12:00am miconazole nitrate 20 mg/ml vaginal cream (3 sources) Azole Antifungal Start: 07-07-2023 MICONAZOLE-7 2 % vaginal cream Insert 1 applicator into the vagina nightly. 07/07/2023 Active naproxen 500 mg oral tablet [...] 8:52am nitroglycerin 0.3 mg subling ual tablet (20 sources) Nitrate Vasodilator nitroglyceri n (Nitrostat) 0.[address] 0.3 mg under the tongue every 5 (five) minutes if needed for chest pain. Active Nitroglycerin 0. 3 MG as directed Sublingual prn Active NovoFine (15 sources) NovoFine Active omeprazole 40 mg delayed release oral capsule (20 sources) Proton Pump Inhibitor Start: take 1 capsule by mouth once daily before breakfast omeprazole (PriLOSEC) 40 mg capsule Take 1 capsule (40 mg total) by mouth every morning before breakfast. 04/28/2023 Active Start: 04-03-2022 take 20 mg [...] Daily April 03, 2022 12:00am Start: 03-05-2022 take [...] Probiotic - (2 sources) Probiotic - as directed Orally Active sacubitril 49 mg / valsartan 51 mg oral tablet (4 sources) Angiotensin 2 Receptor Oniel Start: 09-23-2024 take 1 tablet by mouth in the morning sacubitril-valsart an (Entresto) 49-51 MG tablet Indications: Acute on chronic diastolic heart failure (CMS/HCC) Take 1 tablet by mouth in the morning and 1 tablet before bedtime. 200 tablet 3 03/01/2024 Active take 1 tablet by mouth twice aleshia ly Entresto 49 mg-51 mg tablet take 1 tablet by oral route 2 times every day 1.00 tablet - Active spironolactone 25 mg oral tablet (5 sources) Aldosterone Antagonist Start: 10-10-2023 End: 10-04-2024 spironolactone (Aldactone) 25 MG tablet 02/05/2024 Active take 0.5 tablet by mouth once da zach spironolactone 25 mg tablet take 0.5 tablet by oral route every day 12.5 MG - Active SteriLance PA (15 sources) SteriLance PA Ac tive tiZANidine 4 mg oral tablet (2 sources) Central alpha-2 Adrenergic Agonist Start: 03-15-2024 End: 03-25-2024 take 1 tablet by mouth every six hours for muscle spasms tiZANidine (Zanaflex) 4 MG tablet Indications: Right lumbar radiculopathy Take 1 tablet (4 mg) by mouth every 6 (six) hours if needed for muscle spasms for up to 10 days 30 tablet 03/15/2024 03/25/2024 Active torsemide 20 mg oral tablet (11 sources) Loop Diuretic Start: 07-09-2023 take 1 tablet by mouth twice daily torsemide (DEMADEX) 20 mg tablet Take 1 tablet (20 mg total) by mouth 2 (two) times a day. 07/09/2023 Active take 2 tablets by mouth [...] 21, 2022 12:00am April 03, 2022 8:52am diazePAM [...] [Impaired mobility and endurance] 03-23-2022 Episodic Cataract (3 sources) Bilateral senile combined form cataracts of eyes; Translations: [Bilateral senile combined form cataracts of eyes] Onset: 03-02-2024 Chronic Congestive heart failure; nonhypertensive (20 sources) Unspecified diastolic (congestive) heart failure; Translations: [Acute on chronic diastolic heart failure] Onset: 05-17-2022 Chronic Coronary atherosclerosis and other heart disease (17 sources) Coronary arteriosclerosis; Translations: [Atherosclerotic heart disease of unga coronary artery without angina pectoris] Onset: 09-24-2023 03-23-2022 Chronic Diabetes mellitus with complications (20 sources) Skin ulcer due to type 2 diabetes mellitus; Translations: [Type 2 diabetes mellitus with other skin ulcer] Onset: 11-25-2019 Resolved: 12-19-2023 10-28-2022 Chronic Diabetes mellitus without complication (18 sources) Type 2 diabetes mellitus; Translations: [Type 2 diabetes mellitus without complications] Onset: 05-16-2022 03-23-2022 Chronic Disorders of lipid metabolism (20 sources) Hyperlipidemia; Translations: [Hyperlipidemia, unspecified] Onset: 09-20-2020 03-23-2022 Chronic Esophageal disorders (11 sources) Gastroesophageal reflux disease; Translations: [Gastro-esophageal reflux disease without esophagitis] Onset: 10-15-2022 03-23-2022 Chronic Essential hypertension (16 sources) Hypertensive disorder; Translations: [Essential (primary) hypertension] Onset: 05-16-2022 03-23-2022 Chronic Gout and other crystal arthropathies (11 sources) Gout; Translations: [Gout, unspecified] Onset: 10-15-2022 03-23-2022 Chronic Immunity disorders (2 sources) Secondary immune deficiency disorder; Translations: [Immunodeficiency due to conditions classified elsewhere ([facility])] 07-21-2023 Chronic Osteoarthritis (20 sources) Localized, primary osteoarthritis of the pelvic region and thigh; Translations: [Unilateral primary osteoarthritis, left hip] Onset: 10-17-2016 Resolved: 10-15-2021 Chronic Osteoporosis (14 sources) Senile osteoporosis; Translations: [Age-related osteoporosis without [...] 07-07-2023 Chronic Other and ill-defined heart disease (5 sources) Diastolic dysfunction; Translations: [Other ill-defined heart diseases] Onset: 01-13-2023 01-13-2023 Chronic Other circulatory disease (2 sources) Peripheral vascular angioplasty status with implants and grafts; Translations: [Peripheral vascular angioplasty status with implants and grafts] Onset: 12-04-2023 Chronic Other connective tissue disease (1 source) History of lumbar fusion; Translations: [Arthrodesis status] 10-23-2023 Episodic Other connective tissue disease (1 source) Arthrodesis status; Translations: [Arthrodesis status] 10-23-2023 Episodic Other connective tissue disease (2 sources) Spasm; Translations: [Other muscle spasm] 03-15-2024 Episodic Other diseases of kidney and ureters (5 sources) Renal mass; Translations: [Other specified disorders [...] Resolved: 12-06-2021 Chronic Other nervous system disorders (5 sources) Difficulty walking; Translations: [Difficulty in walking, [...] nutritional; endocrine; and metabolic disorders (5 sources) Morbid obesity; Translations: [Morbid (severe) obesity due to excess calories] Onset: 10-08-2013 01-13-2023 Chronic Residual codes; unclassified (6 sources) Sleep apnea; Translations: [Sleep apnea, unspecified] 03-23-2022 Chronic Residual codes; unclassified (3 sources) Sleep apnea, unspecified; Translations: [Unspecified sleep apnea] Onset: 05-16-2022 04-03-2022 Chronic Residual codes; unclassified (5 sources) Obstructive sleep apnea syndrome; Translations: [Obstructive sleep apnea (adult) (pediatric)] Onset: 10-15-2022 04-21-2023 Chronic Retinal detachments; defects; vascular occlusion; and retinopathy (3 sources) Nonexudative age-related macular degeneration; Translations: [Nonexudative age-related macular degeneration] Onset: 03-02-2024 Chronic Spondylosis; intervertebral disc disorders; other back problems (20 sources) Solitary sacroiliitis; Translations: [Sacroiliitis, not elsewhere classified] Onset: 09-25-2021 Resolved: 01-15-2022 Chronic Spondylosis; intervertebral disc disorders; other back problems (20 sources) Radiculopathy, lumbar region; Translations: [Lumbar radiculopathy] Onset: 10-07-2013 Resolved: 01-15-2022 Episodic Transient cerebral ischemia (1 source) Transient cerebral [...] Problem Date Documented Date Episodic/Chronic Abdominal hernia (5 sources) Umbilical hernia; Translations: [Umbilical hernia without obstruction or gangrene] Onset: 10-15-2022 10-15-2022 Episodic Calculus of urinary tract (5 sources) Kidney stone; Translations: [Calculus of kidney] Onset: 10-15-2022 10-15-2022 Episodic Mood disorders (3 sources) Mood disorders Onset: 08-19-2023 08-19-2023 Neoplasms of unspecified nature or uncertain behavior (5 sources) Neoplasm of uncertain behavior of kidney; Translations: [Neoplasm of uncertain behavior of unspecified kidney] Onset: 10-07-2013 01-13-2023 Episodic Other acquired deformities (5 sources) Acquired spondylolisthesis; Translations: [Spondylolisthesis, site unspecified] Onset: 08-07-2023 08-07-2023 Episodic Other aftercare (1 source) [facility] (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 of aspirin; Translations: [[facility] CURRENT USE OF ASPIRIN] Onset: 05-16-2022 Episodic Other aftercare (1 source) [facility] (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 of insulin; Translations: [[facility] CURRENT USE OF INSULIN] Onset: 05-16-2022 Episodic Other aftercare (1 source) 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; Translations: [OTH MACHINE REPAIRMAN CURRENT DRUG THERAPY] Onset: 05-16-2022 Episodic Other aftercare (5 sources) Long-term current use of insulin; Translations: [[facility] (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 of insulin] Onset: 07-12-2015 01-13-2023 Episodic Other and unspecified benign neoplasm (5 sources) Angiomyolipoma of kidney; Translations: [Benign lipomatous neoplasm of kidney] Onset: 10-15-2022 10-15-2022 Episodic Other connective tissue disease (3 sources) Other specified soft tissue disorders; Translations: [OTHER SPEC SOFT TISSUE DISORDERS] Onset: 05-14-2022 Episodic Other connective tissue disease (1 source) Synovial cyst of popliteal space [Finch], right knee; Translations: [SYNOVIAL CYST POP SPACE RIGHT KNEE] Onset: 05-16-2022 Episodic Other connective tissue disease (5 sources) H/O: arthritis; Translations: [Personal history of other diseases of the musculoskeletal system and connective tissue] Onset: 10-08-2013 01-13-2023 Episodic Other diseases of veins and lymphatics (5 sources) Peripheral venous insufficiency; Translations: [Venous insufficiency (chronic) (peripheral)] Onset: 01-10-2020 01-13-2023 Episodic Other lower respiratory disease (2 sources) Other forms of dyspnea; Translations: [Other forms of dyspnea] Onset: 07-02-2023 Episodic Other nervous system disorders (5 sources) Skin sensation disturbance; Translations: [Unspecified disturbances of skin sensation] Onset: 11-05-2019 01-13-2023 Episodic Other nervous system disorders (5 sources) Paresthesia; Translations: [Paresthesia of skin] Onset: 01-13-2023 01-13-2023 Episodic Other screening for suspected conditions (not mental disorders or infectious disease) (15 sources) Coronary arteriosclerosis excluded; Translations: [Encounter for observation for other suspected diseases and conditions ruled out] Onset: 11-02-2013 Resolved: 09-24-2023 10-15-2022 Episodic Residual codes; unclassified (1 source) Asymptomatic menopausal state Onset: 12-06-2021 Resolved: 12-06-2021 Episodic Residual codes; unclassified (5 sources) Localized edema; Translations: [Localized edema] Onset: 10-28-2022 10-28-2022 Episodic Skin and subcutaneous tissue infections (1 source) Cellulitis of right lower limb; Translations: [CELLULITIS OF RIGHT LOWER LIMB] Onset: 05-16-2022 Episodic Thyroid disorders (5 sources) Disorder of thyroid gland; Translations: [Disorder of thyroid, unspecified] Onset: 10-15-2022 10-15-2022 Episodic Unclassified (1 source) DM with mild NPDR with ME (chief complaint) Onset: 01-08-2024 Unclassified (1 source) NPDR (chief complaint) Onset: 12-09-2023 Unclassified (1 source) Other pericardial effusion (noninflammatory); Translations: [Other pericardial effusion (noninflammatory)] Onset: 12-04-2023 Unclassified (1 source) Resistant hypertension; Translations: [Resistant hypertension] Onset: 07-16-2023 Results Test Name Value Interpretation Reference Range Facility Office Visiton 03-05-2024 Follow-up visit [id number] JebLaura A 1950 F Date Provider Department Center 03/05/2024 JULITO SALAZAR Family History Problem Relation Age of Onset ROD disease Mother Heart attack Father Family Status - Relation Status Age at Mother Father Level of Service:24411 [place] OFFICE/OUTPATIENT ESTABLISHED MOD MDM 30 MIN Normal [facility] Office Visiton 12-04-2023 Follow-up visit [id number] Laura Lawson A 1950 F Date Provider Department Center 12/04/2023 JULITO SALAZAR Family History Problem Relation Age of Onset ROD disease Mother Heart attack Father Family Status - Relation Status Age at Mother Father Level of Service:39562 [place] OFFICE/OUTPATIENT ESTABLISHED MOD MDM 30 MIN Normal [facility] XR lumbar spine AP/LAT/FLX/E XTon 10-23-2023 XR lumbar spine AP/LAT/FLX/EXT [facility] Main [place] [id number] XRay Report Signed Patient: Laura Lawson MR#: [id number] : 1950 Acct:[id number] Age/Sex: 72 / F ADM Date: 10/23/23 Loc: XD Room: Type: [facility] Attending Dr: Abner Roa MD Copies [...] Amaury Devlin M.D.10/23/2023 2:34 PM Dictation Location: [place] [address] Transcribed By: [facility] 10/23/23 1434 Dictated By: Amaury Devlin DO 10/23/23 1430 Signed By: 10/23/23 1434 Normal [facility] Office Visiton 10-14-2023 Follow-up visit [id number] Laura Lawson 1950 F Date Provider Department Center 10/14/2023 Zaida[facility] Family History Problem Relation Age of Onset ROD disease Mother Heart attack Father Family Status - Relation Status Age at Mother Father Level of Service:37247 [place] OFFICE/OUTPATIENT ESTABLISHED MOD MDM 30 MIN Reason for Visit and Comments: Coronary Artery Disease [187] Congestive Heart Failure [127] Hypertension [429303] Normal [facility] 30on 10-09-2023 30 The patient is [...] to address these barriers include N/A. Normal [facility] BASIC METABOLIC PANELon 05-0 Anion gap [Moles/Vol] 11 mmol/L Normal 7-20 [facility] Comment on above: Performed By: #### L [id number] #### [facility] ([facility]) [address] [place] [address] Calcium [Mass/Vol] 9.7 mg/dL Normal 8.6-10.3 [facility] Comment on above: Performed By: #### L [id number] #### [facility] ([facility] [address] [place] [address] Chloride [Moles/Vol] 104 mmol/L Normal 98-107 [facility] Comment on above: Performed By: #### L [id number] #### [facility] [address] [place] [address] CO2 [Moles/Vol] 24 mmol/L Normal 21-31 [facility] Comment on above: Performed By: #### L [id number] #### [facility] [address] [place] [address] Creatinine [Mass/Vol] 1.18 mg/dL Normal 0.60-1.20 [facility] Comment on above: Performed By: #### L [id number] #### [facility] [address] [place] [address] GLOMERULAR FILTRATION RATE ML/MIN/1.73 SQ M.PREDICTED 49.7 mL/min/1.73m*2 Low >60.0 [facility] Comment on above: Result Comment: The [facility]???s estimated glomerular filtration rate (eGFR) will [...] group of individuals. Performed By: #### L [id number] #### [facility] ([facility]) [address] [place] [address] Glucose [Mass/Vol] 231 mg/dL High 70-100 [facility] Comment on above: Performed By: #### L [id number] #### [facility] ([facility]) [address] [place] [address] Potassium [Moles/Vol] 4.2 mmol/L Normal 3.5-5.[address] [facility] Comment on above: Performed By: #### L [id number] #### [facility] ([facility]) [address] [place] [address] Sodium [Moles/Vol] 135 mmol/L Low 136-145 [facility] Comment on above: Performed By: #### L [id number] #### [facility] ([facility]) [address] [place] [address] Urea nitrogen [Mass/Vol] 37 mg/dL High 7-25 [facility] Comment on above: Performed By: #### L [id number] #### [facility] ([facility]) [address] [place] [address] UREA NITROGEN/CREATININE (MASS RATIO) IN SER/PLAS 31.4 Normal [facility] Comment on above: Performed By: #### L [id number] #### [facility] ([facility]) [address] [place] [address] CBCon 10-09-2023 Erythrocyte distribution width (RBC) [Ratio] 15.1 % High 11.5-15.0 [facility] Comment on above: Performed By: #### L [id number] ####[facility] ([facility])[address] [place] [address] ERYTHROCYTE MEAN CORPUSCULAR HEMOGLOBIN CONCENTRATION (G/DL) BY AUTOMATED 31.9 g/dL Low 32.0-35.0 [facility] Comment on above: Performed By: #### L [id number] ####[facility] ([facility])[address] [place] [address] Hematocrit (Bld) [Volume fraction] 32.9 % Low 36.0-48.0 [facility] Comment on above: Performed By: #### L [id number] ####[facility] ([facility])[address] [place] [address] Hemoglobin (Bld) [Mass/Vol] 10.5 g/dL Low 12.0-15.0 [facility] Comment on above: Performed By: #### L [id number] ####[facility] ([facility])[address] [place] [address] MCH (RBC) [Entitic mass] 32.0 pg Normal 27.0-33.0 [facility] Comment on above: Performed By: #### L [id number] ####[facility] ([facility])[address] [place] [address] MCV (RBC) [Entitic vol] 100.3 fL High 82.0-98.0 [facility] Comment on above: Performed By: #### L [id number] ####[facility] ([facility])[address] [place] [address] PLATELETS (10*3/UL) IN BLOOD AUTOMATED COUNT 259 10*3/uL Normal 150-400 [facility] Comment on above: Performed By: #### L [id number] ####[facility])[address] [place] [address] RBC (Bld) [#/Vol] 3.28 10*6/uL Low 3.80-5.00 [facility] Comment on above: Performed By: #### L [id number] ####[facility] ([facility])[address] [place] [address] WBC (Bld) [#/Vol] 13.05 10*3/uL High 4.00-10.60 [facility] Comment on above: Performed By: #### L [id number] ####[facility] ([facility]ER)[address] [address] DSon 10-09-2023 DS --- Attestation signed by [...] 70% instent (more content not included)... Normal [facility] POCT GLUCOSE METER UNSOLICIT ED RESULTSon 10-09-2023 Glucose [Mass/Vol] 225 mg/dL High 70-105 [facility] Comment on above: Order Comment: Waive d Testing in the ED is performed under the ED CLIA certificate #[id number]. Result Comment: [email or web address] Performed By: #### L [id number] #### [facility]) [address] [place] [address] Glucose [Mass/Vol] 215 mg/dL High 70-105 [facility] Comment on above: Order Comment: Waive d Testing in the ED is performed under the ED CLIA certificate #[id number]. Result Comment: [email or web address] Performed By: #### L [id number] #### [facility]) [address] [place] [address] 30on 10-08-2023 30 The patient is Moderately [...] over the next 3 months Outcome: Progressing [facility] HPon 10-08-2023 HP H&P reviewed. The [...] explained the procedure with risks and benefits. [facility] NURSNOTEon 10-08-2023 NURSNOTE Report called to Benigno cabello RN. He denies questions/concerns. [facility] POCT GLUCOSE METER UNSOLICIT ED RESULTSon 10-08-2023 Glucose [Mass/Vol] 208 mg/dL High 70-105 [facility] Comment on above: Order Comment: Waive d Testing in the ED is performed under the ED CLIA certificate #[id number]. Result Comment: [email or web address] Performed By: #### L [id number] #### [facility]) [address] [place] [address] Glucose [Mass/Vol] 179 mg/dL High 70-105 [facility] Comment on above: Order Comment: Waive d Testing in the ED is performed under the ED CLIA certificate #[id number]. Result Comment: [email or web address] Performed By: #### L [id number] #### [facility]) [address] [place] [address] HPon 09-26-2023 HP hydral [place] [facility] Subjective Laura Lawson is a 72 y.o. year old female patient being seen for Follow-up (Follow up - heart cath ) Patient Active Problem List Diagnosis Allergic rhinitis Angiomyolipoma of kidney Benign essential hypertension Cerebrovascular disease Chronic foot ulcer ([facility]/HCC) Coronary atherosclerosis Decreased estrogen level Diabetic retinopathy associated with type 2 diabetes mellitus ([facility]/HCC) Diaphragmatic hernia Difficulty walking Dyspnea on exertion Generalized osteoarthritis Gout History of arthritis History of hysterectomy Hyperglycemia due to type 2 diabetes mellitus ([facility]/HCC) FCI current use of insulin ([facility]/HCC) Low back pain Morbid obesity ([facility]/HCC) Neoplasm of uncertain behavior of kidney Obstructive sleep apnea syndrome Osteoarthritis of knee Osteoporosis Peripheral venous insufficiency Polyneuropathy due to type 2 diabetes mellitus ([facility]/HCC) Preoperative evaluation to rule out surgical contraindication Pulmonary function studies abnormal Pure hypercholesterolemia Renal mass Skin sensation disturbance Type 2 diabetes mellitus without complication ([facility]/HCC) Umbilical hernia Uric acid nephrolithiasis NSTEMI (non-ST elevated myocardial infarction) ([facility]) Acute exacerbation of CHF (congestive heart failure) ([facility]) COVID-19 Acquired spondylolisthesis Acute on chronic diastolic heart failure (CMS/HCC) Coronary artery disease (CAD) excluded Diastolic dysfunction [...] Acute systolic heart failure (CMS/HCC) CAD in unga artery Family History Problem Relation Name Age of Onset ROD disease Mother Heart attack Father Social History [...] not included)... [facility] Office Visiton 09-26-2023 Follow-up visit [id number] Laura Lawson 1950 F Date Provider Department Center 09/26/2023 JULITO SALAZAR ESTHELA Harding [facility] Family History Problem Relation Age of Onset ROD disease Mother Heart attack Father Family Status - Relation Status Age at Mother Father Level of Service:91439 [place] OFFICE/OUTPATIENT ESTABLISHED HIGH MDM 40 MIN Reason for Visit and Comments: Follow-up [027460] - Follow up - heart cath [facility] 30on 09-10-2023 30 Daily Case Managemen [...] Score: PT Recommendations: OT Recommendations: New Consults: [facility] CBC WITH AUTO DIFFERENTIALon 09-10-2023 Basophils (Bld) [#/Vol] 0.05 10*3/uL Normal 0.00-0.20 [facility] Comment on above: Performed By: #### L [id number] #### [facility]) [address] [place] [address] Basophils/100 WBC (Bld) 0.6 % Normal 0.0-1.0 [facility] Comment on above: Performed By: #### L [id number] #### [facility]) [address] [place] [address] Eosinophils (Bld) [#/Vol] 0.35 10*3/uL Normal 0.00-0.50 [facility] Comment on above: Performed By: #### L [id number] #### [facility] [address] [place] [address] Eosinophils/100 WBC (Bld) 4.0 % Normal 0.0-6.0 [facility] Comment on above: Performed By: #### L [id number] #### [facility]) [address] [place] [address] Erythrocyte distribution width (RBC) [Ratio] 15.7 % High 11.5-15.0 [facility] Comment on above: Performed By: #### L [id number] #### [facility] [address] [place] [address] ERYTHROCYTE MEAN CORPUSCULAR HEMOGLOBIN CONCENTRATION (G/DL) BY AUTOMATED 32.6 g/dL Normal 32.0-35.0 [facility] Comment on above: Performed By: #### L [id number] #### [facility]) [address] [place] [address] Hematocrit (Bld) [Volume fraction] 38.0 % Normal 36.0-48.0 [facility] Comment on above: Performed By: #### L [id number] #### [facility] [address] [place] [address] Hemoglobin (Bld) [Mass/Vol] 12.4 g/dL Normal 12.0-15.0 [facility] Comment on above: Performed By: #### L [id number] #### [facility] [address] [place] [address] Immature granulocytes (Bld) [#/Vol] 0.02 10*3/uL Normal 0.00-0.20 [facility] Comment on above: Performed By: #### L [id number] #### [facility] ([facility]) [address] [place] [address] Immature granulocytes/100 WBC (Bld) 0.2 % Normal 0.0-1.0 [facility] Comment on above: Performed By: #### L [id number] #### [facility] ([facility]) [address] [place] [address] Lymphocytes (Bld) [#/Vol] 1.93 10*3/uL Normal 1.20-4.00 [facility] Comment on above: Performed By: #### L [id number] #### [facility] ([facility]) [address] [place] [address] Lymphocytes/100 WBC (Bld) 22.0 % Normal 20.0-45.0 [facility] Comment on above: Performed By: #### L [id number] #### [facility] [address] [place] [address] MCH (RBC) [Entitic mass] 30.7 pg Normal 27.0-33.0 [facility] Comment on above: Performed By: #### L [id number] #### [facility]) [address] [place] [address] MCV (RBC) [Entitic vol] 94.1 fL Normal 82.0-98.0 [facility] Comment on above: Performed By: #### L [id number] #### [facility]) [address] [place] [address] Monocytes (Bld) [#/Vol] 1.04 10*3/uL High 0.10-1.00 [facility] Comment on above: Performed By: #### L [id number] #### [facility] ([facility]) [address] [place] [address] Monocytes/100 WBC (Bld) 11.8 % Normal 5.0-12.0 [facility] Comment on above: Performed By: #### L [id number] #### [facility]) [address] [place] [address] Neutrophils (Bld) [#/Vol] 5.40 10*3/uL Normal 1.60-7.60 [facility] Comment on above: Performed By: #### L [id number] #### [facility]) [address] [place] [address] Neutrophils/100 WBC (Bld) 61.4 % Normal 40.0-72.0 [facility] Comment on above: Performed By: #### L [id number] #### [facility]) [address] [place] [address] NRBC (PER 100 WBCS) BY AUTOMATED COUNT 0.0 % Normal 0 [facility] Comment on above: Performed By: #### L [id number] #### [facility]) [address] [place] [address] PLATELETS (10*3/UL) IN BLOOD AUTOMATED COUNT 256 10*3/uL Normal 150-400 [facility] Comment on above: Performed By: #### L [id number] #### [facility]) [address] [place] [address] RBC (Bld) [#/Vol] 4.04 10*6/uL Normal 3.80-5.00 [facility] Comment on above: Performed By: #### L [id number] #### [facility]) [address] [place] [address] WBC (Bld) [#/Vol] 8.79 10*3/uL Normal 4.00-10.60 [facility] Comment on above: Performed By: #### L [id number] #### [facility] ([facility]) [address] [place] [address] COMPREHENSIVE METABOLIC PANE Agus 09-10-2023 Albumin [Mass/Vol] 3.5 g/dL Normal 3.5-5.7 [facility] Comment on above: Performed By: #### L [id number] #### [facility] ([facility]) [address] [place] [address] ALP [Catalytic activity/Vol] 67 U/L Normal 34-104 [facility] Comment on above: Performed By: #### L [id number] #### [facility] ([facility]) [address] [place] [address] ALT [Catalytic activity/Vol] 12 U/L Normal 7-52 [facility] Comment on above: Performed By: #### L [id number] #### [facility] ([facility]) [address] [place] [address] Anion gap [Moles/Vol] 11 mmol/L Normal 7-20 [facility] Comment on above: Performed By: #### L [id number] #### [facility] ([facility]) [address] [place] [address] AST [Catalytic activity/Vol] 15 U/L Normal 13-39 [facility] Comment on above: Performed By: #### L [id number] #### [facility] ([facility]) [address] [place] [address] Bilirubin [Mass/Vol] 0.6 mg/dL Normal 0.3-1.0 [facility] Comment on above: Performed By: #### L [id number] #### [facility] [address] [place] [address] Calcium [Mass/Vol] 9.5 mg/dL Normal 8.6-10.3 [facility] Comment on above: Performed By: #### L [id number] #### [facility]) [address] [place] [address] Chloride [Moles/Vol] 103 mmol/L Normal 98-107 [facility] Comment on above: Performed By: #### L [id number] #### [facility] [address] [place] [address] CO2 [Moles/Vol] 26 mmol/L Normal 21-31 [facility] Comment on above: Performed By: #### L [id number] #### [facility] ([facility]) [address] [place] [address] Creatinine [Mass/Vol] 0.84 mg/dL Normal 0.60-1.20 [facility] Comment on above: Performed By: #### L [id number] #### [facility] ([facility]) [address] [place] [address] GLOMERULAR FILTRATION RATE ML/MIN/1.73 SQ M.PREDICTED 74.7 mL/min/1.73m*2 Normal >60.0 [facility] Comment on above: Result Comment: The [facility]???s estimated glomerular filtration rate (eGFR) will [...] individuals. Performed By: #### L [id number] #### [facility] [address] [place] [address] Glucose [Mass/Vol] 148 mg/dL High 70-100 [facility] Comment on above: Performed By: #### L [id number] #### [facility] [address] [place] [address] Potassium [Moles/Vol] 4.1 mmol/L Normal 3.5-5.1 [facility] Comment on above: Performed By: #### L [id number] #### [facility] ([facility]) [address] [place] [address] Protein [Mass/Vol] 5.8 g/dL Low 6.0-8.3 [facility] Comment on above: Performed By: #### L [id number] #### [facility] ([facility]) [address] [place] [address] Sodium [Moles/Vol] 136 mmol/L Normal 136-145 [facility] Comment on above: Performed By: #### L [id number] #### [facility] ([facility]) [address] [place] [address] Urea nitrogen [Mass/Vol] 27 mg/dL High 7-25 [facility] Comment on above: Performed By: #### L [id number] #### [facility] ([facility]) [address] [place] [address] UREA NITROGEN/CREATININE (MASS RATIO) IN SER/PLAS 32.1 Normal [facility] Comment on above: Performed By: #### L [id number] #### [facility] ([facility]) [address] [place] [address] HEMOGLOBIN A1Con 09-10-2023 Glucose [Mass/Vol] 252 mg/dL Normal [facility] Comment on above: Performed By: #### L [id number] #### [facility] ([facility]) [address] [place] [address] HbA1c (Bld) [Mass fraction] 10.4 % High 4.0-6.0 [facility] Comment on above: Performed By: #### L [id number] #### [facility] ([facility]) [address] [place] [address] LIPID PANELon 09-10-2023 CHOL/HDL 2.8 mg/dL Normal [facility] Comment on above: Performed By: #### L [id number] ####[facility])[address] [place] [address] Cholesterol [Mass/Vol] 148 mg/dL Normal 120-200 [facility] Comment on above: Performed By: #### L [id number] ####[facility] [place] [address] Magnesium [Mass/Vol] 89 mg/dL Normal 40-149 [facility] Comment on above: Result Comment: TRIG LYCERIDE REFERENCE RANGE: 20 YEARS AND OLDER CARDIOVASCULAR RISK LESS THAN 150 mg/dL LOW RISK 150 TO 199 mg/dL BORDERLINE RISK 200 mg/dL AND GREATER HIGH RISK Performed By: #### L [id number] ####[facility] ([facility])[address] [place] [address] Magnesium [Mass/Vol] 77 mg/dL Normal 0-160 [facility] Comment on above: Performed By: #### L [id number] ####[facility] ([facility])[address] [place] [address] Magnesium [Mass/Vol] 53 mg/dL Normal 23-92 [facility] Comment on above: Performed By: #### L [id number] ####[facility] ([facility])[address] [place] [address] NON HDL CHOL. (LDL+VLDL) 95 Normal [facility] Comment on above: Performed By: #### L [id number] ####[facility] ([facility])[address] [place] [address] TOTAL VLDL-C 18 mg/dL Normal 0-40 [facility] Comment on above: Performed By: #### L [id number] ####[facility] ([facility])[address] [place] [address] MAGNESIUMon 09-10-2023 Magnesium [Mass/Vol] 2.1 mg/dL Normal 1.9-2.7 [facility] Comment on above: Performed By: #### L [id number] #### [facility] [address] [place] [address] NURSNOTEon 09-10-2023 DIALLO LIVE reviewed and discussed with the patient. The patient has no further questions or concerns at this time. [facility] has delivered two medications to the room. The patient has notified her friend of needing a ride home ETA 1900. Normal [facility] POCT GLUCOSE METER UNSOLICIT ED RESULTSon 09-10-2023 Glucose [Mass/Vol] 156 mg/dL High 70-105 [facility] Comment on above: Order Comment: Waive d Testing in the ED is performed under the ED CLIA certificate #[id number]. Result Comment: [email or web address] Performed By: #### L [id number] #### [facility] ([facility] [address] [place] [address] Glucose [Mass/Vol] 141 mg/dL High 70-105 [facility] Comment on above: Order Comment: Waive d Testing in the ED is performed under the ED CLIA certificate #[id number]. Result Comment: [email or web address] Performed By: #### L [id number] #### [facility] [address] [place] [address] 30on 09-09-2023 30 The patient is Moderately [...] prescribed range Outcome: Adequate for Discharge Normal [facility] 30 The patient is Moderately Stable - Low risk of patient condition declining or worsening The patient's goals for the shift include Comfort The clinical goals for the shift include comfort Normal [facility] CONSULTon 09-09-2023 CONSULT --- Attestation signed [...] of Abnormal ECG, CHF (congestive heart failure) ([facility]), Coronary artery disease, Diabetes mellitus ([facility]), Gout, Hypertension, Myocardial infarction ([facility]), and Sleep apnea. Surgical History She has [...] History Problem Relation Name Age of Onset ROD disease Mother Heart attack Father Allergies Patient [...] ???C (9 (more content not included)... Normal [facility] HPon 09-09-2023 History Of Present Illness [...] systolic heart failure. Coronary artery disease involving unga coronary artery of unga heart without angina pectoris status post stent x 4, last PCI 2013 Mixed hyperlipidemia. Resistant hypertension. Cerebrovascular disease. Type 2 diabetes mellitus. Given her acute systolic heart failure, will be proceeding with a coronary angiogram (more content not included)... Normal [facility] NURSNOTEon 09-09-2023 NURSNOTE Report given to Niels quintana RN from Roselia ARGUETA Any medications or safety alerts were reviewed. Any pending diagnostics and notifications were also reviewed, as well as any safety concerns or issues, abnormal labs, abnormal imagining, and abnormal assessment findings. Questions were answered. Normal [facility] POCT GLUCOSE METER UNSOLICIT ED RESULTSon 09-09-2023 Glucose [Mass/Vol] 163 mg/dL High 70-105 [facility] Comment on above: Order Comment: Waive d Testing in the ED is performed under the ED CLIA certificate #[id number]. Result Comment: [email or web address] Performed By: #### L [id number] #### [facility] ([facility]) [address] [place] [address] Glucose [Mass/Vol] 228 mg/dL High 70-105 [facility] Comment on above: Order Comment: Waive d Testing in the ED is performed under the ED CLIA certificate #[id number]. Result Comment: [email or web address] Performed By: #### L [id number] #### [facility] ([facility]) [address] [place] [address] 36on 08-28-2023 36 Reviewed their note. Lets proceed with a cardiac cath please for assessment of her acute systolic heart failure. They also recommended a LOOP recorder. Can we see if this can be done the same day? If not, will plan for cath first. Thanks! [facility] Orders Onlyon 08-28-2023 Orders Only [id number] Laura Lawson 1950 F Date Provider Department Center 08/28/2023 Chastity-MATTHEW REDMOND Family History Problem Relation Age of Onset ROD disease Mother Heart attack Father Family Status - Relation Status Age at Mother Father [facility] 36on 08-21-2023 36 Any updates after he r neuro appt? Normal [facility] 36on 08-18-2023 36 Regarding echo performed on 08/14/2023: SHANDRA Henderson MA Please let her know her labs show normal kidney function and blood counts. Her ECHO shows her the fluid around her heart has improved, only a small amount. Awaiting to hear from her neurology appt on 08/18 if okay to proceed with cardiac cath. Thanks! LM on patient's VM. [facility] Telephoneon 08-18-2023 Telephone [id number] Laura Lawson A 1950 F Date Provider Department Center 08/18/2023 NIRAJ COOPER Family History Problem Relation Age of Onset ROD disease Mother Heart attack Father Family Status - Relation Status Age at Mother Father [facility] 37on 07-31-2023 37 *Your recent heart [...] 80mg daily *Follow-up after heart cath procedure [facility] Office Visiton 07-31-2023 Follow-up visit [id number] Laura Lawson A 1950 F Date Provider Department Center 07/31/2023 NIRAJ COOPER Family History Problem Relation Age of Onset ROD disease Mother Heart attack Father Family Status - Relation Status Age at Mother Father Level of Service:[address] [place] OFFICE/OUTPATIENT ESTABLISHED HIGH MDM 40 MIN Reason for Visit and Comments: Congestive Heart Failure [127] Hypertension [296800] [facility] 36on 07-24-2023 36 Regarding echo performed [...] scheduled to see you next week, 07/31. [facility] 36 Patient has acute systolic heart failure and she will need a cardiac cath. Can we please find out when she will be seeing neurology as we will need clearance from them before proceeding. Thank you! [facility] Telephoneon 07-24-2023 Telephone [id number] Rod Lawsonaldine A 1950 Date Provider Department Center 07/24/2023 NIRAJ COOPER [facility] Family History Problem Relation Age of Onset ROD disease Mother Heart attack Father Family Status - Relation Status Age at Mother Father [facility] Office Visiton 07-16-2023 Follow-up visit [id number] Rod Lawsonaldine A 1950 Date Provider Department Center 07/16/2023 NIRAJ COOPER [facility] Family History Problem Relation Age of Onset ROD disease Mother Heart attack Father Family Status - Relation Status Age at Mother Father Level of Service:82830 [place] OFFICE/OUTPATIENT ESTABLISHED MOD MDM 30 MIN Reason for Visit and Comments: Hypertension [339691] [facility] 36on 07-08-2023 36 DC on 07/07/2022 Spoke to pts caregiver Latrice Piña reconciled with caregiver Pt is going to try to get follow up in next 7 days in [place] and will call to cancel her appt with [facility] cardiology. Will leave appt in place until pt confirms [facility] Documentationon 07-08-2023 Documentation [id number] Rod Lawsonaldine A 1950 Date Provider Department Center 07/08/2023 RUDDY DAMICO [facility] [place] [facility] Family History Problem Relation Age of Onset ROD disease Mother Heart attack Father Family Status - Relation Status Age at Mother Father Reason for Visit and Comments: HF inpatient satisfaction survey sent. [Other] [facility] Telephoneon 07-08-2023 Telephone [id number] Rod Lawsonaldine A 1950 F Date Provider Department Center 07/08/2023 Jackie-FRANK BOGGS [facility] [place] [facility] Family History Problem Relation Age of Onset ROD disease Mother Heart attack Father Family Status - Relation Status Age at Mother Father Reason for Visit and Comments: hospital DC follow up call [Other] Normal [facility] 30on 07-07-2023 30 The patient is [...] oxygen saturation or arterial blood gases Normal [facility] POCT GLUCOSE METER UNSOLICIT ED RESULTSon 07-07-2023 Glucose [Mass/Vol] 213 mg/dL High 70-105 [facility] Comment on above: Order Comment: Waive d Testing in the ED is performed under the ED CLIA certificate #[id number]. Result Comment: [email or web address] Performed By: #### L [id number] #### [facility] ([facility]) [address] [place] [address] Glucose [Mass/Vol] 91 mg/dL Normal 70-105 [facility] Comment on above: Order Comment: Waive d Testing in the ED is performed under the ED CLIA certificate #[id number]. Result Comment: [email or web address] Performed By: #### L [id number] #### [facility] [address] [place] [address] 30on 07-06-2023 30 The patient is Moderately [...] comfort level Outcome: Adequate for Discharge Normal [facility] 30 The patient is Moderately Stable - Low risk of patient condition declining or worsening The patient's goals for the shift include comfort The clinical goals for the shift include VSS, control blood sugar Over the shift, the patient did make progress toward the following goals. Problem: Respiratory - Adult Goal: Achieves optimal ventilation and oxygenation Outcome: Progressing Flowsheets (Taken 07/06/2023 1420) Achieves optimal ventilation and oxygenation: Assess for changes in respiratory status Assess for changes in mentation and behavior Position to facilitate oxygenation and minimize respiratory effort Respiratory therapy support as indicated Assess and instruct to report shortness of breath or any respiratory difficulty Oxygen supplementation based on oxygen saturation or arterial blood gases Normal [facility] 30 The patient is Moderately Stable [...] safest level of function Outcome: Progressing Normal [facility] BASIC METABOLIC PANELon 06-10 Anion gap [Moles/Vol] 8 mmol/L Normal 7-20 [facility] Comment on above: Performed By: #### L [id number] #### [facility] ([facility]) [address] [place] [address] Calcium [Mass/Vol] 8.9 mg/dL Normal 8.6-10.3 [facility] Comment on above: Performed By: #### L [id number] #### [facility] ([facility]) [address] [place] [address] Chloride [Moles/Vol] 101 mmol/L Normal 98-107 [facility] Comment on above: Performed By: #### L [id number] #### [facility] ([facility]) [address] [place] [address] CO2 [Moles/Vol] 28 mmol/L Normal 21-31 [facility] Comment on above: Performed By: #### L [id number] #### [facility] ([facility]) [address] [place] [address] Creatinine [Mass/Vol] 0.95 mg/dL Normal 0.60-1.20 [facility] Comment on above: Performed By: #### L [id number] #### [facility] ([facility]) [address] [place] [address] GLOMERULAR FILTRATION RATE ML/MIN/1.73 SQ M.PREDICTED 64.5 mL/min/1.73m*2 Normal >60.0 [facility] Comment on above: Result Comment: The [facility]???s estimated glomerular filtration rate (eGFR) will [...] group of individuals. Performed By: #### L [id number] #### [facility] ([facility]) [address] [place] [address] Glucose [Mass/Vol] 164 mg/dL High 70-100 [facility] Comment on above: Performed By: #### L [id number] #### [facility] ([facility]) [address] [place] [address] Potassium [Moles/Vol] 3.7 mmol/L Normal 3.5-5.[address] [facility] Comment on above: Performed By: #### L [id number] #### [facility] ([facility]) [address] [place] [address] Sodium [Moles/Vol] 133 mmol/L Low 136-145 [facility] Comment on above: Performed By: #### L [id number] #### [facility] ([facility]) [address] [place] [address] Urea nitrogen [Mass/Vol] 23 mg/dL Normal 7-25 [facility] Comment on above: Performed By: #### L [id number] #### [facility] ([facility]) [address] [place] [address] UREA NITROGEN/CREATININE (MASS RATIO) IN SER/PLAS 24.2 Normal [facility] Comment on above: Performed By: #### L [id number] #### [facility] ([facility]) [address] [place] [address] MAGNESIUMon 07-06-2023 Magnesium [Mass/Vol] 2.0 mg/dL Normal 1.9-2.7 [facility] Comment on above: Performed By: #### L [id number] ####[facility] ([facility])[address] [place] [address] POCT GLUCOSE METER UNSOLICIT ED RESULTSon 07-06-2023 Glucose [Mass/Vol] 203 mg/dL High 70-105 [facility] Comment on above: Order Comment: Waive d Testing in the ED is performed under the ED CLIA certificate #[id number]. Result Comment: [email or web address] Performed By: #### L [id number] #### [facility] ([facility]) [address] [place] [address] Glucose [Mass/Vol] 286 mg/dL High 70-105 [facility] Comment on above: Order Comment: Waive d Testing in the ED is performed under the ED CLIA certificate #[id number]. Result Comment: [email or web address] Performed By: #### L [id number] ####[facility] ([facility])[address] [place] [address] Glucose [Mass/Vol] 267 mg/dL High 70-105 [facility] Comment on above: Order Comment: Waive d Testing in the ED is performed under the ED CLIA certificate #[id number]. Result Comment: [email or web address] Performed By: #### L [id number] ####[facility] ([facility])[address] [place] [address] Glucose [Mass/Vol] 150 mg/dL High 70-105 [facility] Comment on above: Order Comment: Waive d Testing in the ED is performed under the ED CLIA certificate #[id number]. Result Comment: [email or web address] Performed By: #### L [id number] #### [facility] ([facility]) [address] [place] [address] 30on 07-05-2023 30 The patient is Moderately [...] the next 3 months Outcome: Progressing Normal [facility] 30 Problem: Pain - Adul t [...] make progress toward the following goals. Normal [facility] COMPREHENSIVE METABOLIC PANE Agus 07-05-2023 Albumin [Mass/Vol] 3.0 g/dL Low 3.5-5.7 [facility] Comment on above: Performed By: #### L [id number] #### [facility] ([facility]) [address] [place] [address] ALP [Catalytic activity/Vol] 82 U/L Normal 34-104 [facility] Comment on above: Performed By: #### L [id number] #### [facility] ([facility]) [address] [place] [address] ALT [Catalytic activity/Vol] 15 U/L Normal 7-52 [facility] Comment on above: Performed By: #### L [id number] #### [facility] ([facility]) [address] [place] [address] Anion gap [Moles/Vol] 10 mmol/L Normal 7-20 [facility] Comment on above: Performed By: #### L [id number] #### [facility] ([facility]) [address] [place] [address] AST [Catalytic activity/Vol] 20 U/L Normal 13-39 [facility] Comment on above: Performed By: #### L [id number] #### [facility] ([facility]) [address] [place] [address] Bilirubin [Mass/Vol] 1.0 mg/dL Normal 0.3-1.0 [facility] Comment on above: Performed By: #### L [id number] #### [facility] ([facility]) [address] [place] [address] Calcium [Mass/Vol] 9.1 mg/dL Normal 8.6-10.3 [facility] Comment on above: Performed By: #### L [id number] #### [facility] ([facility]) [address] [place] [address] Chloride [Moles/Vol] 100 mmol/L Normal 98-107 [facility] Comment on above: Performed By: #### L [id number] #### [facility] ([facility]) [address] [place] [address] CO2 [Moles/Vol] 27 mmol/L Normal 21-31 [facility] Comment on above: Performed By: #### L [id number] #### [facility] ([facility]) [address] [place] [address] Creatinine [Mass/Vol] 0.76 mg/dL Normal 0.60-1.20 [facility] Comment on above: Performed By: #### L [id number] #### [facility] ([facility]) [address] [place] [address] GLOMERULAR FILTRATION RATE ML/MIN/1.73 SQ M.PREDICTED 84.2 mL/min/1.73m*2 Normal >60.0 [facility] Comment on above: Result Comment: The [facility]???s estimated glomerular filtration rate (eGFR) will [...] individuals. Performed By: #### L [id number] #### [facility] ([facility]) [address] [place] [address] Glucose [Mass/Vol] 87 mg/dL Normal 70-100 [facility] Comment on above: Performed By: #### L [id number] #### [facility] ([facility]) [address] [place] [address] Potassium [Moles/Vol] 3.4 mmol/L Low 3.5-5.1 [facility] Comment on above: Performed By: #### L [id number] #### [facility] ([facility]) [address] [place] [address] Protein [Mass/Vol] 4.9 g/dL Low 6.0-8.3 [facility] Comment on above: Performed By: #### L [id number] #### [facility] [address] [place] [address] Sodium [Moles/Vol] 134 mmol/L Low 136-145 [facility] Comment on above: Performed By: #### L [id number] #### [facility] [address] [place] [address] Urea nitrogen [Mass/Vol] 14 mg/dL Normal 7-25 [facility] Comment on above: Performed By: #### L [id number] #### [facility] ([facility]) [address] [place] [address] UREA NITROGEN/CREATININE (MASS RATIO) IN SER/PLAS 18.4 Normal [facility] Comment on above: Performed By: #### L [id number] #### [facility] ([facility]) [address] [place] [address] MAGNESIUMon 07-05-2023 Magnesium [Mass/Vol] 1.6 mg/dL Low 1.9-2.7 [facility] Comment on above: Performed By: #### L [id number] ####[facility] ([facility])[address] [place] [address] POCT GLUCOSE METER UNSOLICIT ED RESULTSon 07-05-2023 Glucose [Mass/Vol] 238 mg/dL High 70-105 [facility] Comment on above: Order Comment: Waive d Testing in the ED is performed under the ED CLIA certificate #[id number]. Result Comment: [email or web address] Performed By: #### L [id number] #### [facility] ([facility]) [address] [place] [address] Glucose [Mass/Vol] 283 mg/dL High 70-105 [facility] Comment on above: Order Comment: Waive d Testing in the ED is performed under the ED CLIA certificate #[id number]. Result Comment: [email or web address] [email or web address] Performed By: #### L [id number] #### [facility] ([facility]) [address] [place] [address] Glucose [Mass/Vol] 141 mg/dL High 70-105 [facility] Comment on above: Order Comment: Waive d Testing in the ED is performed under the ED CLIA certificate #[id number]. Result Comment: [email or web address] Performed By: #### L [id number] #### [facility] ([facility]) [address] [place] [address] Glucose [Mass/Vol] 103 mg/dL Normal 70-105 [facility] Comment on above: Order Comment: Waive d Testing in the ED is performed under the ED CLIA certificate #[id number]. Result Comment: [email or web address] Performed By: #### L [id number] #### [facility] ([facility]) [address] [place] [address] Glucose [Mass/Vol] 87 mg/dL Normal 70-105 [facility] Comment on above: Order Comment: Waive d Testing in the ED is performed under the ED CLIA certificate #[id number]. Result Comment: [email or web address] Performed By: #### L [id number] #### [facility] ([facility]) [address] [place] [address] Glucose [Mass/Vol] 71 mg/dL Normal 70-105 [facility] Comment on above: Order Comment: Waive d Testing in the ED is performed under the ED CLIA certificate #[id number]. Result Comment: [email or web address] Performed By: #### L [id number] #### [facility] ([facility]) [address] [place] [address] 30on 07-04-2023 30 Daily Case Managemen t [...] Health Types of Home Health Service needed Prison Please indicate your approval for this care by adding your name here: ANGELIKA SANTOS 07/04/23 1216 07/02/23 2347 Inpatient consult to Social Work Once Provider: (Not yet assigned) Question Answer Comment Is discharge planning needed? If yes, who is requesting discharge planning? Provider Select all services needed for the patient [facility] Facility (30 day convalescent stay) Please indicate your approval for this care by adding your name here: IVORY GARRETT 07/02/23 0608 Therapy Orders (From admission, onward) Start Ordered 07/04/23 1215 MICROSTRATEGY ARCHITECT Bedside Swallow Eval and Treat (to determine safe diet level) Until therapy completed Comments: Bedside dysphagia screening exam Question Answer Comment Reason for MICROSTRATEGY ARCHITECT Consult? Dysphagia (swallowing, poor intake) Reason for MICROSTRATEGY ARCHITECT Consult? Speech/language cognition Speech/language focus: Aphasia Speech/language focus: Dysarthria Can patient sit upright? Yes Does patient have a tracheostomy? No 07/04/23 1216 07/04/23 1215 MICROSTRATEGY ARCHITECT eval and treat Until therapy completed Question Answer Comment Reason for MICROSTRATEGY ARCHITECT Consult? Speech/language cognition Speech/language focus: Aphasia Speech/language focus: Dysarthria 07/04/23 1216 07/04/23 1213 PT eval and treat Until therapy completed Question: Reason for PT? Answer: weakness 07/04/23 1216 07/04/23 1213 OT eval and treat Until therapy completed Question: Reason for OT? Answer: weakness 07/04/23 1216 Normal [facility] 30 The patient is Moderately Stable - Low risk of patient condition declining or worsening The patient's goals for the shift include comfort The clinical goals for the shift include VSS Over the shift, the patient did not make progress toward the following goals. Barriers to progression include na. Recommendations to address these barriers include na. Normal [facility] 30 Problem: Pain - Adul t Goal: Verbalizes/displays adequate comfort level or baseline comfort level Outcome: Progressing Problem: Safety - Adult Goal: Free from fall injury Outcome: Progressing Flowsheets (Taken 07/03/20231999) Free from fall injury: Assess patient frequently for physical needs Identify cognitive and physical deficits and behaviors that affect risk of falls [place] fall precautions as indicated by assessment The patient is Moderately Stable - Low risk of patient condition declining or worsening The patient's goals for the shift include comfort The clinical goals for the shift include VSS Over the shift, the patient did make progress toward the following goals. Normal [facility] COMPREHENSIVE METABOLIC PANE Agus 07-04-2023 Albumin [Mass/Vol] 3.0 g/dL Low 3.5-5.7 [facility] Comment on above: Performed By: #### L [id number] ####[facility] [place] [address] ALP [Catalytic activity/Vol] 74 U/L Normal 34-104 [facility] Comment on above: Performed By: #### L [id number] ####[facility] ([facility])[address] [place] [address] ALT [Catalytic activity/Vol] 19 U/L Normal 7-52 [facility] Comment on above: Performed By: #### L [id number] ####[facility] ([facility])[address] [place] [address] Anion gap [Moles/Vol] 6 mmol/L Low 7-20 [facility] Comment on above: Performed By: #### L [id number] ####[facility] ([facility])[address] [place] [address] AST [Catalytic activity/Vol] 17 U/L Normal 13-39 [facility] Comment on above: Performed By: #### L [id number] ####[facility] ([facility])[address] [place] [address] Bilirubin [Mass/Vol] 0.8 mg/dL Normal 0.3-1.0 [facility] Comment on above: Performed By: #### L [id number] ####[facility] ([facility])[address] [place] [address] Calcium [Mass/Vol] 9.4 mg/dL Normal 8.6-10.3 [facility] Comment on above: Performed By: #### L [id number] ####[facility] ([facility])[address] [place] [address] Chloride [Moles/Vol] 103 mmol/L Normal 98-107 [facility] Comment on above: Performed By: #### L [id number] ####[facility] ([facility])[address] [place] [address] CO2 [Moles/Vol] 30 mmol/L Normal 21-31 [facility] Comment on above: Performed By: #### L [id number] ####[facility] ([facility])[address] [place] [address] Creatinine [Mass/Vol] 0.65 mg/dL Normal 0.60-1.20 [facility] Comment on above: Performed By: #### L [id number] ####[facility] ([facility])[address] [place] [address] GLOMERULAR FILTRATION RATE ML/MIN/1.73 SQ M.PREDICTED 94.7 mL/min/1.73m*2 Normal >60.0 [facility] Comment on above: Result Comment: The [facility]???s estimated glomerular filtration rate (eGFR) will [...] of individuals. Performed By: #### L [id number] ####[facility] ([facility])[address] [place] [address] Glucose [Mass/Vol] 69 mg/dL Low 70-100 [facility] Comment on above: Performed By: #### L [id number] ####[facility] ([facility])[address] [place] [address] Potassium [Moles/Vol] 3.2 mmol/L Low 3.5-5.1 [facility] Comment on above: Performed By: #### L [id number] ####[facility] ([facility])[address] [place] [address] Protein [Mass/Vol] 5.0 g/dL Low 6.0-8.3 [facility] Comment on above: Performed By: #### L [id number] ####[facility])[address] [place] [address] Sodium [Moles/Vol] 136 mmol/L Normal 136-145 [facility] Comment on above: Performed By: #### L [id number] ####[facility])[address] [place] [address] Urea nitrogen [Mass/Vol] 17 mg/dL Normal 7-25 [facility] Comment on above: Performed By: #### L [id number] ####[facility] [place] [address] UREA NITROGEN/CREATININE (MASS RATIO) IN SER/PLAS 26.2 Normal [facility] Comment on above: Performed By: #### L [id number] ####[facility] [place] [address] CONSULTon 07-04-2023 CONSULT --- Attestation signed by [...] acute heart failure exacerbation and COVID-positive at [facility]. Patient stated that she has not [...] NSTEMI and congestive heart failure exacerbation. At [facility], BNP greater than 2717. Troponin 0.12-->0.10. [...] history of Coronary artery disease, Diabetes mellitus ([facility]), Gout, Hypertension, and Sleep apnea. Surgical History [...] History Problem Relation Name Age of Onset ROD disease Mother Heart attack Father Allergies Patient [...] -- -- (more content not included)... Normal [facility] CONSULT --- Attestation signed by Elliott [...] an 72 y.o. female who came from [facility] with N-STEMI, acute CHF exacerbation, KJ, covid positive obesity and CAD with 4 stents. Plavix stopped in August 2022. Cardiology is treating Pt for CHF exacerbation. Patient endorses chronic SOB but reports worsening prior to arrival to [facility]. Was given Lasix 40 mg IV while at [facility]. +covid-19. Chest X-ray showed cardiomegaly with vascular [...] History Problem Relation Name Age of Onset ROD disease Mother Heart attack Father Social History [...] negative INTEGUMENT/DEIRDRE (more content not included)... Normal [facility] CT HEAD WO IV CONTRASTon CT [...] lobe medially aerated IMPRESSION: Mild atrophy and ilbu-dm-lajpkajm chronic ischemic changes with no large acute [...] conditions/characterist ics Electronically signed: Chuck Mendoza. Normal [facility] CTA HEAD W AND WO IV [...] the distal vertebral artery bilaterally There is dqqu-[id number] calcification in the distal left vertebral artery [...] out neoplasm Electronically signed: Chuck Mendoza. Normal [facility] CTA NECK W AND WO IV [...] viewed on a separate workstation. The [place] Symptomatic Carotid Endarterectomy Trial (NASCET) method for [...] low as reasonably achievable Electronically signed: Otto Msa. Normal [facility] MR BRAIN WO CONTRASTon 07-04 MR [...] this report. Electronically signed: Fortunato Milan. Normal [facility] POCT GLUCOSE METER UNSOLICIT ED RESULTSon 07-04-2023 Glucose [Mass/Vol] 186 mg/dL High 70-105 [facility] Comment on above: Order Comment: Waive d Testing in the ED is performed under the ED CLIA certificate #[id number]. Result Comment: [email or web address] Performed By: #### L [id number] #### [facility]) [address] [place] [address] Glucose [Mass/Vol] 69 mg/dL Low 70-105 [facility] Comment on above: Order Comment: Waive d Testing in the ED is performed under the ED CLIA certificate #[id number]. Result Comment: [email or web address] Performed By: #### L [id number] ####[facility] ([facility])[address] [facility] [place] [address] Glucose [Mass/Vol] 71 mg/dL Normal 70-105 [facility] Comment on above: Order Comment: Waive d Testing in the ED is performed under the ED CLIA certificate #[id number]. Result Comment: [email or web address] Performed By: #### L [id number] ####[facility] ([facility])[address] [facility] [place] [address] Glucose [Mass/Vol] 83 mg/dL Normal 70-105 [facility] Comment on above: Order Comment: Waive d Testing in the ED is performed under the ED CLIA certificate #[id number]. Result Comment: [email or web address] Performed By: #### L [id number] #### [facility] ([facility]) [address] [place] [address] Glucose [Mass/Vol] 76 mg/dL Normal 70-105 [facility] Comment on above: Order Comment: Waive d Testing in the ED is performed under the ED CLIA certificate #[id number]. Result Comment: [email or web address] Performed By: #### L [id number] ####[facility] ([facility])[address] [facility] [place] [address] TROPONIN Ion 07-04-2023 Troponin I.cardiac [Mass/Vol] 0.10 ng/mL High 0.00-0.04 [facility] Comment on above: Performed By: #### L [id number] ####[facility] ([facility])[address] [facility] [place] [address] 30on 07-03-2023 30 Daily Case Managemen t [...] Consults (From admission, onward) Start Ordered 07/02/23 2347 Inpatient consult to Social Work Once Provider: (Not yet assigned) Question Answer Comment Is discharge planning needed? If yes, who is requesting discharge planning? Provider Select all services needed for the patient [facility] (30 day convalescent stay) Please indicate your approval for this care by adding your name here: IVORY GARRETT 07/02/[id number]/02/232346 Consult to Nutrition Services Once Provider: (Not yet assigned) Question: Reason for Consult? Answer: NSTEMI/CHF 07/02/232356 Normal [facility] 30 The patient is Moderately Stable - Low risk of patient condition declining or worsening The patient's goals for the shift include COMFORT The clinical goals for the shift include VSS Over the shift, the patient did not make progress toward the following goals. Barriers to progression include na. Recommendations to address these barriers include na. Normal [facility] 30 The patient is Moderately Stable - Low risk of patient condition declining or worsening The patient's goals for the shift include COMFORT The clinical goals for the shift include VSS Normal [facility] B-TYPE NATRIURETIC PEPTIDEon 07-03-2023 Natriuretic peptide B (Bld) [Mass/Vol] 2717 pg/mL High 0-100 [facility] Comment on above: Performed By: #### L [id number] ####[facility] [place] [address] CBC WITH AUTO DIFFERENTIALon 07-03-2023 Basophils (Bld) [#/Vol] 0.06 10*3/uL Normal 0.00-0.20 [facility] Comment on above: Performed By: #### L [id number] #### [facility] [address] [place] [address] Basophils/100 WBC (Bld) 0.7 % Normal 0.0-1.0 [facility] Comment on above: Performed By: #### L [id number] #### [facility] ([facility]) [address] [place] [address] Eosinophils (Bld) [#/Vol] 0.08 10*3/uL Normal 0.00-0.50 [facility] Comment on above: Performed By: #### L [id number] #### [facility] [address] [place] [address] Eosinophils/100 WBC (Bld) 0.9 % Normal 0.0-6.0 [facility] Comment on above: Performed By: #### L [id number] #### [facility] ([facility]) [address] [place] [address] Erythrocyte distribution width (RBC) [Ratio] 15.1 % High 11.5-15.0 [facility] Comment on above: Performed By: #### L [id number] #### [facility] [address] [place] [address] ERYTHROCYTE MEAN CORPUSCULAR HEMOGLOBIN CONCENTRATION (G/DL) BY AUTOMATED 31.9 g/dL Low 32.0-35.0 [facility] Comment on above: Performed By: #### L [id number] #### [facility] [address] [place] [address] Hematocrit (Bld) [Volume fraction] 39.8 % Normal 36.0-48.0 [facility] Comment on above: Performed By: #### L [id number] #### [facility] [address] [facility] [place] [address] Hemoglobin (Bld) [Mass/Vol] 12.7 g/dL Normal 12.0-15.0 [facility] Comment on above: Performed By: #### L [id number] #### [facility] [address] [facility] [place] [address] Immature granulocytes (Bld) [#/Vol] 0.03 10*3/uL Normal 0.00-0.20 [facility] Comment on above: Performed By: #### L [id number] #### [facility] ([facility]) [address] [place] [address] Immature granulocytes/100 WBC (Bld) 0.3 % Normal 0.0-1.0 [facility] Comment on above: Performed By: #### L [id number] #### [facility] ([facility]) [address] [place] [address] Lymphocytes (Bld) [#/Vol] 1.52 10*3/uL Normal 1.20-4.00 [facility] Comment on above: Performed By: #### L [id number] #### [facility] ([facility]) [address] [place] [address] Lymphocytes/100 WBC (Bld) 17.6 % Low 20.0-45.0 [facility] Comment on above: Performed By: #### L [id number] #### [facility] ([facility]) [address] [place] [address] MCH (RBC) [Entitic mass] 29.3 pg Normal 27.0-33.0 [facility] Comment on above: Performed By: #### L [id number] #### [facility] ([facility]) [address] [place] [address] MCV (RBC) [Entitic vol] 91.9 fL Normal 82.0-98.0 [facility] Comment on above: Performed By: #### L [id number] #### [facility] ([facility]) [address] [place] [address] Monocytes (Bld) [#/Vol] 1.20 10*3/uL High 0.10-1.00 [facility] Comment on above: Performed By: #### L [id number] #### [facility] [address] [place] [address] Monocytes/100 WBC (Bld) 13.9 % High 5.0-12.0 [facility] Comment on above: Performed By: #### L [id number] #### [facility] ([facility]) [address] [place] [address] Neutrophils (Bld) [#/Vol] 5.75 10*3/uL Normal 1.60-7.60 [facility] Comment on above: Performed By: #### L [id number] #### [facility] ([facility]) [address] [place] [address] Neutrophils/100 WBC (Bld) 66.6 % Normal 40.0-72.0 [facility] Comment on above: Performed By: #### L [id number] #### [facility] ([facility]) [address] [place] [address] NRBC (PER 100 WBCS) BY AUTOMATED COUNT 0.0 % Normal 0 [facility] Comment on above: Performed By: #### L [id number] #### [facility] ([facility]) [address] [place] [address] PLATELETS (10*3/UL) IN BLOOD AUTOMATED COUNT 354 10*3/uL Normal 150-400 [facility] Comment on above: Performed By: #### L [id number] #### [facility] ([facility]) [address] [place] [address] RBC (Bld) [#/Vol] 4.33 10*6/uL Normal 3.80-5.00 [facility] Comment on above: Performed By: #### L [id number] #### [facility] ([facility]) [address] [place] [address] WBC (Bld) [#/Vol] 8.64 10*3/uL Normal 4.00-10.60 [facility] Comment on above: Performed By: #### L [id number] #### [facility] ([facility]) [address] [place] [address] COMPREHENSIVE METABOLIC PANE Agus 07-03-2023 Albumin [Mass/Vol] 3.5 g/dL Normal 3.5-5.7 [facility] Comment on above: Performed By: #### L [id number] ####[facility] ([facility])[address] [place] [address] ALP [Catalytic activity/Vol] 102 U/L Normal 34-104 [facility] Comment on above: Performed By: #### L [id number] ####[facility])[address] [place] [address] ALT [Catalytic activity/Vol] 24 U/L Normal 7-52 [facility] Comment on above: Performed By: #### L [id number] ####[facility])[address] [place] [address] Anion gap [Moles/Vol] 13 mmol/L Normal 7-20 [facility] Comment on above: Performed By: #### L [id number] ####[facility])[address] [place] [address] AST [Catalytic activity/Vol] 23 U/L Normal 13-39 [facility] Comment on above: Performed By: #### L [id number] ####[facility])[address] [place] [address] Bilirubin [Mass/Vol] 1.2 mg/dL High 0.3-1.0 [facility] Comment on above: Performed By: #### L [id number] ####[facility])[address] [place] [address] Calcium [Mass/Vol] 9.4 mg/dL Normal 8.6-10.3 [facility] Comment on above: Performed By: #### L [id number] ####[facility] ([facility])[address] [place] [address] Chloride [Moles/Vol] 98 mmol/L Normal 98-107 [facility] Comment on above: Performed By: #### L [id number] ####[facility] ([facility])[address] [place] [address] CO2 [Moles/Vol] 27 mmol/L Normal 21-31 [facility] Comment on above: Performed By: #### L [id number] ####[facility] ([facility])[address] [place] [address] Creatinine [Mass/Vol] 0.71 mg/dL Normal 0.60-1.[address] [facility] Comment on above: Performed By: #### L [id number] ####[facility] ([facility])[address] [place] [address] GLOMERULAR FILTRATION RATE ML/MIN/1.73 SQ M.PREDICTED 91.4 mL/min/1.73m*2 Normal >60.0 [facility] Comment on above: Result Comment: The [facility]???s estimated glomerular filtration rate (eGFR) will [...] of individuals. Performed By: #### L [id number] ####[facility] ([facility])[address] [place] [address] Glucose [Mass/Vol] 323 mg/dL High 70-100 [facility] Comment on above: Performed By: #### L [id number] ####[facility] ([facility])[address] [place] [address] Potassium [Moles/Vol] 3.6 mmol/L Normal 3.5-5.[address] [facility] Comment on above: Performed By: #### L [id number] ####[facility] ([facility])[address] [place] [address] Protein [Mass/Vol] 6.0 g/dL Normal 6.0-8.3 [facility] Comment on above: Performed By: #### L [id number] ####[facility] ([facility])[address] [place] [address] Sodium [Moles/Vol] 134 mmol/L Low 136-145 [facility] Comment on above: Performed By: #### L [id number] ####[facility] ([facility])[address] [place] [address] Urea nitrogen [Mass/Vol] 11 mg/dL Normal 7-25 [facility] Comment on above: Performed By: #### L [id number] ####[facility] ([facility])[address] [place] [address] UREA NITROGEN/CREATININE (MASS RATIO) IN SER/PLAS 15.5 Normal [facility] Comment on above: Performed By: #### L [id number] ####[facility] ([facility])[address] [place] [address] HEMOGLOBIN A1Con 07-03-2023 Glucose [Mass/Vol] 263 mg/dL Normal [facility] Comment on above: Performed By: #### L [id number] #### [facility] ([facility]) [address] [place] [address] HbA1c (Bld) [Mass fraction] 10.8 % High 4.0-6.0 [facility] Comment on above: Performed By: #### L [id number] #### [facility] ([facility]) [address] [place] [address] LIPID PANELon 07-03-2023 CHOL/HDL 2.7 mg/dL Normal [facility] Comment on above: Performed By: #### L [id number] #### [facility] ([facility]) [address] [place] [address] Cholesterol [Mass/Vol] 170 mg/dL Normal 120-200 [facility] Comment on above: Performed By: #### L [id number] #### [facility] ([facility]) [address] [place] [address] Magnesium [Mass/Vol] 105 mg/dL Normal 40-149 [facility] Comment on above: Result Comment: TRIG LYCERIDE REFERENCE RANGE: 20 YEARS AND OLDER CARDIOVASCULAR RISK LESS THAN 150 mg/dL LOW RISK 150 TO 199 mg/dL BORDERLINE RISK 200 mg/dL AND GREATER HIGH RISK Performed By: #### L [id number] #### [facility] ([facility]) [address] [place] [address] Magnesium [Mass/Vol] 87 mg/dL Normal 0-160 [facility] Comment on above: Performed By: #### L [id number] #### [facility] ([facility]) [address] [place] [address] Magnesium [Mass/Vol] 62 mg/dL Normal 23-92 [facility] Comment on above: Performed By: #### L [id number] #### [facility] ([facility]) [address] [place] [address] NON HDL CHOL. (LDL+VLDL) 108 Normal [facility] Comment on above: Performed By: #### L [id number] #### [facility] ([facility]) [address] [place] [address] TOTAL VLDL-C 21 mg/dL Normal 0-40 [facility] Comment on above: Performed By: #### L [id number] #### [facility] ([facility]) [address] [place] [address] MAGNESIUMon 07-03-2023 Magnesium [Mass/Vol] 1.9 mg/dL Normal 1.9-2.7 [facility] Comment on above: Performed By: #### L [id number] ####[facility] ([facility])[address] [place] [address] Magnesium [Mass/Vol] 1.4 mg/dL Low 1.9-2.7 [facility] Comment on above: Performed By: #### L [id number] ####[facility] ([facility])[address] [place] [address] NURSNOTEon 07-03-2023 NURSNOTE Covid swabbed patien t twice, both tests resulted in negative results. KENDALL Ford informed. Results entered in computer. Normal [facility] PHOSPHORUSon 07-03-2023 Magnesium [Mass/Vol] 2.7 mg/dL Normal 2.5-5.0 [facility] Comment on above: Performed By: #### L [id number] #### [facility] ([facility]) [address] [place] [address] POCT GLUCOSE METER UNSOLICIT ED RESULTSon 07-03-2023 Glucose [Mass/Vol] 116 mg/dL High 70-105 [facility] Comment on above: Order Comment: Waive d Testing in the ED is performed under the ED CLIA certificate #[id number]. Result Comment: [email or web address] Performed By: #### L [id number] #### [facility]) [address] [facility] [place] [address] Glucose [Mass/Vol] 188 mg/dL High 70-105 [facility] Comment on above: Order Comment: Waive d Testing in the ED is performed under the ED CLIA certificate #[id number]. Result Comment: [email or web address] Performed By: #### L [id number] ####[facility] ([facility])[address] [facility] [place] [address] Glucose [Mass/Vol] 260 mg/dL High 70-105 [facility] Comment on above: Order Comment: Waive d Testing in the ED is performed under the ED CLIA certificate #[id number]. Result Comment: [email or web address] Performed By: #### L [id number] #### [facility] ([facility]) [address] [place] [address] Glucose [Mass/Vol] 425 mg/dL High 70-105 [facility] Comment on above: Order Comment: Waive d Testing in the ED is performed under the ED CLIA certificate #[id number]. Result Comment: [email or web address] Performed By: #### L [id number] #### [facility] ([facility]) [address] [place] [address] PROGRESSon 07-03-2023 SARS-CoV-2 (COVID-19) RNA GUS+probe Ql [...] for CR with NSTEMI dx. ANSHU Prather manager compliance Outpatient Coordinator Cardiopulmonary Rehab Normal [facility] TROPONIN Ion 07-03-2023 Troponin I.cardiac [Mass/Vol] 0.12 ng/mL Critically high 0.00-0.04 [facility] Comment on above: Result Comment: M-TR OPONIN INITIAL CRITICAL HIGH; RESPUN AND RETESTED Performed By: #### L [id number] ####[facility] ([place])[address] [place] [address] 30on 07-02-2023 30 The patient is Moderately Stable - Low risk of patient condition declining or worsening The patient's goals for the shift include COMFORT The clinical goals for the shift include VSS Normal [facility] XR lumbar spine AP/LAT/FLX/E XTon 03-13-2023 XR lumbar spine AP/LAT/FLX/EXT [facility] [address] XRay Report Signed Patient: Laura Lawson MR#: [id number] : 1950 Acct:[id number] Age/Sex: 72 / F ADM Date: 03/13/23 Loc: XD Room: Type: [facility] Attending Dr: Abner Roa MD Copies [...] Amaury Devlin M.D.03/13/2023 3:02 PM Dictation Location: [place] [address] Transcribed By: [facility] 03/13/23 1502 Dictated By: Amaury Devlin DO 03/13/23 1500 Signed By: 03/13/23 1502 Normal [facility] Physician [facility] MG MAMM SCREEN 3D YANETH CADon 11-06-2022 MG MAMM SCREEN 3D YANETH CAD Patient: LAURA LAWSON. Exam Date: 11/06/2022 : 1950 Gender:F Ordering : DR VLAD CESAR M.D. Admission #: [id number] Family : Order #: [id number] CLICK HERE TO VIEW EXAM RADIOLOGY REPORT [...] No Treatments None Family Cancers None LOCATION: [facility] BREAST COMPOSITION: Scattered areas fibroglandular density. FINDINGS: [...] Villanueva M.D. on 11/06/2022 at 16:56 Normal [facility] ECHOCARDIO M/2D COMPLETEon 1 07-18-2021 ECHOCARDIO M/2D COMPLETE Patient: LAURA LAWSON. Exam Date: 05/17/2022 : 1950 Gender:F Ordering : DR VLAD CESAR M.D. Admission #: [id number] Family : DR JULITO ZENDEJAS M.D. Order #: [id number] CLICK HERE TO VIEW EXAM ECHOCARDIOGRAM REPORT [...] Zendejas M.D. on 05/17/2022 at 18:[address] [facility] CBC AUTO DIFFon 05-14-2022 BASO # 0.0 103/ul Normal 0.0-0.1 [facility] Comment on above: Performed By: #### C BC #### [facility] [address] [place] [address] [address] Hieu Horvath Basophils/100 WBC (Bld) 0.5 % Normal 0.2-2.0 [facility] Comment on above: Performed By: #### C BC #### [facility] [address] [place] [address] Dr. Hieu Horvath EO # 0.2 103/ul Normal 0.0-0.7 [facility] Comment on above: Performed By: #### C BC #### [facility] [address] [place] [address] [address] Hieu Horvath Eosinophils/100 WBC (Bld) 2.5 % Normal 0.9-7.0 [facility] Comment on above: Performed By: #### C BC #### [facility] [address] [place] [address] [address] Hieu Horvath Erythrocyte distribution width (RBC) [Ratio] 14.0 % Normal 11.0-15.0 [facility] Comment on above: Performed By: #### C BC #### [facility] [address] [place] [address] Dr. Hieu Horvath Hematocrit (Bld) [Volume fraction] 35.5 % Critically low 36.0-48.0 [facility] Comment on above: Performed By: #### C BC #### [facility] [address] [place] [address] Dr. Hieu Horvath Hemoglobin (Bld) [Mass/Vol] 11.5 g/dL Critically low 12.0-16.0 [facility] Comment on above: Performed By: #### C BC #### [facility] [address] [place] [address] Dr. Hieu Horvath IG # 0.02 10e3/ul Normal 0.00-0.03 [facility] Comment on above: Performed By: #### C BC #### [facility] [address] [place] [address] Dr. Hieu Horvath IG % 0.2 % Normal 0.0-0.5 [facility] Comment on above: Performed By: #### C BC #### [facility] [address] [place] [address] Dr. Hieu Horvath LYMPH # 1.6 103/ul Normal 1.2-3.8 [facility] Comment on above: Performed By: #### C BC #### [facility] [address] [place] [address] Dr. Hieu Horvath Lymphocytes/100 WBC (Bld) 19.2 % Critically low 20.5-60.0 [facility] Comment on above: Performed By: #### C BC #### [facility] [address] [place] [address] Dr. Hieu Horvath MANUAL DIFF REQ NO Normal [facility] Comment on above: Performed By: #### C BC #### [facility] [address] [place] [address] Dr. Hieu Horvath MCH (RBC) [Entitic mass] 29.9 pg Normal 26.7-34.0 [facility] Comment on above: Performed By: #### C BC #### [facility] [address] [place] [address] [address] Hieu Horvath MCHC (RBC) [Mass/Vol] 32.4 g/dL Normal 29.9-35.2 [facility] Comment on above: Performed By: #### C BC #### [facility] [address] [place] [address] [address] Hieu Horvath MCV (RBC) [Entitic vol] 92.4 fL Normal 81.0-99.0 [facility] Comment on above: Performed By: #### C BC #### [facility] [address] [place] [address] [address] Hieu Horvath MONO # 1.1 103/ul Critically high 0.3-0.8 [facility] Comment on above: Performed By: #### C BC #### [facility] [address] [place] [address] Dr. Hieu Horvath Monocytes/100 WBC (Bld) 12.4 % Critically high 1.7-12. 0 [facility] Comment on above: Performed By: #### C BC #### [facility] [address] [place] [address] [address] Hieu Horvath NEUT # 5.6 103/ul Normal 1.4-6.5 [facility] Comment on above: Performed By: #### C BC #### [facility] [address] [place] [address] Dr. Hieu Horvath Neutrophils/100 WBC (Bld) 65.2 % Normal 43.0-75.0 [facility] Comment on above: Performed By: #### C BC #### [facility] [address] [address] [address] Hieu Horvath Platelet mean volume (Bld) [Entitic vol] 8.9 fL Critically low 9.5-13.5 [facility] Comment on above: Performed By: #### C BC #### [facility] [address] [place] [address] [address] Hieu Horvath PLT 342 103/ul Normal 150-[address] [facility] Comment on above: Performed By: #### C BC #### [facility] [address] [place] [address] Dr. Hieu Horvath RBC 3.84 106/ul Critically low 4.20-5.40 [facility] Comment on above: Performed By: #### C BC #### [facility] [address] [place] [address] Dr. Hieu Horvath WBC 8.5 103/ul Normal 4.0-11.0 [facility] Comment on above: Performed By: #### C BC #### [facility] [address] [place] [address] Dr. Hieu Horvath CULTURE BLOODon 05-14-2022 Microscopic examination of blood, culture Culture Observations: NO GROWTH AT 5 DAYS. Normal [facility] Comment on above: Performed By: #### B [id number] #### [facility] [address] [place] [address] Dr. Hieu Horvath Performed By: #### B [id number] #### [facility] [address] [place] [address] Dr. Hieu Horvath LACTATE/LACTIC ACIDon 2021 Lactate [Moles/Vol] 1.8 mmol/L Normal 0.4-1.9 [facility] Comment on above: Performed By: #### L ACT #### [facility] [address] [place] [address] Dr. Hieu Horvath PROF CHEM 8 (BAS METB)on Anion gap [Moles/Vol] 10.3 mmol/L Normal [facility] Comment on above: Performed By: #### B MP #### [facility] [address] [place] [address] Dr. Hieu Horvath Calcium [Mass/Vol] 9.8 mg/dL Normal 8.5-10.1 [facility] Comment on above: Performed By: #### B MP #### [facility] [address] [place] [address] Dr. Hieu Horvath Chloride [Moles/Vol] 95 mmol/L Critically low 98-107 [facility] Comment on above: Performed By: #### B MP #### [facility] [address] [address] [address] Hieu Horvath CO2 [Moles/Vol] 31.4 mmol/L Normal 21.0-32.0 [facility] Comment on above: Performed By: #### B MP #### [facility] [address] [place] [address] [address] Hieu Horvath Creatinine [Mass/Vol] 1.13 mg/dL Critically high 0.55-1.02 [facility] Comment on above: Performed By: #### B MP #### [facility] [address] [address] [address] Hieu Horvath EGFR-AF AFGHAN 58 mL/min/1.73m2 Critically low >=60 [facility] Comment on above: Performed By: #### B MP #### [facility] [address] [place] [address] [address] Hieu Horvath EGFR-NON AF AFGHAN 48 mL/min/1.73m2 Critically low >=60 [facility] Comment on above: Performed By: #### B MP #### [facility] [address] [place] [address] [address] Hieu Horvath Glucose [Mass/Vol] 370 mg/dL Critically high 74-106 [facility] Comment on above: Performed By: #### B MP #### [facility] [address] [place] [address] [address] Hieu Horvath Potassium [Moles/Vol] 3.7 mmol/L Normal 3.5-5.1 [facility] Comment on above: Performed By: #### B MP #### [facility] [address] [address] [address] Hieu Horvath Sodium [Moles/Vol] 133 mmol/L Critically low 136-145 Th [facility] Comment on above: Performed By: #### B MP #### [facility] [address] [address] [address] Hieu Horvath Urea nitrogen [Mass/Vol] 29.0 mg/dL Critically high 7.0-18.0 [facility] Comment on above: Performed By: #### B MP #### [facility] [address] [place], [place] [address] Dr. Hieu Horvath Urea nitrogen/Creatinine [Mass ratio] 25.7 mg/mg Normal [facility] Comment on above: Performed By: #### B #### [facility] [address] [place], [place] [address] Dr. Hieu Horvath US JAKE DOP LEG [...] RUSSELL YATES Date: 2022-05-14 17:[address] [facility] Glucose Glucometer (BldC) [M ass/Vol]Ordered By: Chidi Bowen on 04-03-2022 Glucose [Mass/Vol] 187 mg/dL [facility] Comment on above: Random Glucose Refer ence Range is dependent on time and content of last meal. Glucose of more than 200 mg/dL in a nonstressed, ambulatory subject supports the diagnosis of Diabetes Mellitus. No Panel InformationOrdered By: Chidi Bowen on 04-03-2022 Bedside Glucose Comment Glu2: cleaned meter [facility] No Panel InformationOrdered By: Chidi Bowen on 03-28-2022 Bedside Glucose #[address]/rn [facility] Glucose mean value [Mass/vol ume] in Blood Estimated from glycated hemoglobinOrdered By: Tuyet Burks on 03-24-2022 Average glucose Estimated from glycated hemoglobin (Bld) [Mass/Vol] 203 mg/dL [facility] Hemoglobin A1c percentageOrd ered By: Tuyet Burks on 03-24-2022 HbA1c (Bld) [Mass fraction] 8.7 % 4.3-5.6 [facility] Comment on above: Increased risk for d iabetes: 5.7 - 6.4diabetes: >6.4glycemic control for adults with diabetes: <7.0 Albumin [Mass/volume] in Ser um or PlasmaOrdered By: Chidi Bowen on 03-23-2022 Albumin [Mass/Vol] 2.9 g/dL 3.2-5.5 [facility] Basophils Auto (Bld) [#/Vol] Ordered By: Chidi Bowen on 03-23-2022 Basophils (Bld) [#/Vol] 0.0 10*3/uL 0.0-0.2 [facility] Basophils/100 WBC Auto (Bld) Ordered By: Chidi Bowen on 03-23-2022 Basophils/100 WBC (Bld) 0.4 % . [facility] Creatinine and Glomerular fi ltration rate.predicted panel (S/P/Bld)Ordered By: Chidi Bowen on 03-23-2022 Creatinine [Mass/Vol] 0.97 mg/dL 0.44-1.03 [facility] Eosinophils Auto (Bld) [#/Vo l]Ordered By: Chidi Bowen on 03-23-2022 Eosinophils (Bld) [#/Vol] 0.1 10*3/uL 0.0-0.45 [facility] Eosinophils/100 WBC Auto (Bl d)Ordered By: Chidi Bowen on 03-23-2022 Eosinophils/100 WBC (Bld) 1.1 % . [facility] Erythrocyte distribution wid th Auto (RBC) [Ratio]Ordered By: Chidi Bowen on 03-23-2022 Erythrocyte distribution width (RBC) [Ratio] 14.2 % 11.9-15.3 [facility] Estimated glomerular filtrat ion rate (GFR) non- AmericanOrdered By: Chidi Bowen on 03-23-2022 GFR/1.73 sq M.predicted among non-blacks MDRD (S/P/Bld) [Vol rate/Area] 57 mL/Min [facility] Globulin Calc (S) [Mass/Vol] Ordered By: Chidi Bowen on 03-23-2022 Globulin (S) [Mass/Vol] 2.7 g/dL [facility] Hematocrit Auto (Bld) [Volum e fraction]Ordered By: Chidi Bowen on 03-23-2022 Hematocrit (Bld) [Volume fraction] 33.0 % 34.0-46.4 [facility] Hemoglobin [Mass/volume] in BloodOrdered By: Chidi Bowen on 03-23-2022 Hemoglobin (Bld) [Mass/Vol] 10.9 g/dL 11.8-15.4 [facility] - Hematology and Cell countsOrdered By: Chidi Bowen on 03-23-2022 Nucleated RBC/100 WBC (Bld) [Ratio] 0.1 % 0-0.5 [facility] Leukocytes [#/volume] in Blo od by Automated countOrdered By: Chidi Bowen on 03-23-2022 WBC (Bld) [#/Vol] 12.0 10*3/uL 4.5-11.[address] [facility] Lymphocytes Auto (Bld) [#/Vo l]Ordered By: Chidi Bowen on 03-23-2022 Lymphocytes (Bld) [#/Vol] 1.8 10*3/uL 1.00-4.8 [facility] Lymphocytes/100 WBC Auto (Bl d)Ordered By: Chidi Bowen on 03-23-2022 Lymphocytes/100 WBC (Bld) 15.0 % . [facility] MCH Auto (RBC) [Entitic mass ]Ordered By: Chidi Bowen on 03-23-2022 MCH (RBC) [Entitic mass] 30.3 pg 24.7-34.3 [facility] MCHC Auto (RBC) [Mass/Vol]Or dered By: Chidi Bowen on 03-23-2022 MCHC (RBC) [Mass/Vol] 33.2 g/dL 32.0-35.0 [facility] MCV Auto (RBC) [Entitic vol] Ordered By: Chidi Bowen on 03-23-2022 MCV (RBC) [Entitic vol] 91.4 fL 80-100 [facility] Monocytes Auto (Bld) [#/Vol] Ordered By: Chidi Bowen on 03-23-2022 Monocytes (Bld) [#/Vol] 1.2 10*3/uL 0.0-0.8 [facility] Monocytes/100 WBC Auto (Bld) Ordered By: Chidi Bowen on 03-23-2022 Monocytes/100 WBC (Bld) 9.8 % . [facility] Neutrophils Auto (Bld) [#/Vo l]Ordered By: Chidi Bowen on 03-23-2022 Neutrophils (Bld) [#/Vol] 8.9 10*3/uL 1.8-7.7 [facility] Neutrophils/100 WBC Auto (Bl d)Ordered By: Chidi Bowen on 03-23-2022 Neutrophils/100 WBC (Bld) 73.7 % . [facility] No Panel InformationOrdered By: Chidi Bowen on 03-23-2022 Estimated GFR () > 60 mL/Min [facility] Comment on above: GFR estimated refere nce range: According to KDOQI guidelines, <60 ml/min/1.73m2 is sufficient to diagnose a patient with chronic kidney disease. Pharmacy Creatinine Clearance (Chem 67.19 [facility] Platelet mean volume Auto (B ld) [Entitic vol]Ordered By: Chidi Bowen on 03-23-2022 Platelet mean volume (Bld) [Entitic vol] 7.3 fL 6.3-10.7 [facility] Platelets Auto (Bld) [#/Vol] Ordered By: Chidi Bowen on 03-23-2022 Platelets (Bld) [#/Vol] 309 10*3/uL 150-450 [facility] Protein [Mass/volume] in Ser um or PlasmaOrdered By: Chidi Bowen on 03-23-2022 Protein [Mass/Vol] 5.6 g/dL 6.1-7.9 [facility] RBC Auto (Bld) [#/Vol]Ordere d By: Chidi Bowen on 03-23-2022 RBC (Bld) [#/Vol] 3.61 10*6/uL 3.60-5.[address] [facility] Serum or plasma alanine ng otransferase measurement without P-5'-P (enzymatic activiOrdered By: Chidi Bowen on 03-23-2022 ALT No additional P-5'-P [Catalytic activity/Vol] 28 U/L 10-60 [facility] Serum or plasma albumin/glob ulin mass ratioOrdered By: Chidi Bowen on 03-23-2022 Albumin/Globulin [Mass ratio] 1.1 {ratio} [facility] Serum or plasma alkaline areli sphatase measurement (enzymatic activity/volume)Ordered By: Chidi Bowen on 03-23-2022 ALP [Catalytic activity/Vol] 57 U/L 32-92 [facility] Serum or plasma anion gap de terminationOrdered By: Chidi Bowen on 03-23-2022 Anion gap [Moles/Vol] 10.9 mmol/L 6.0-15.0 [facility] Serum or plasma aspartate am inotransferase measurement (enzymatic activity/volume)Ordered By: Chidi Bowen on 03-23-2022 AST [Catalytic activity/Vol] 26 U/L 10-42 [facility] Serum or plasma calcium annabel urement (mass/volume)Ordered By: Chidi Bowen on 03-23-2022 Calcium [Mass/Vol] 10.0 mg/dL 8.2-10.2 [facility] Serum or plasma chloride meagan surement (moles/volume)Ordered By: Chidi Bowen on 03-23-2022 Chloride [Moles/Vol] 100 mmol/L 95-114 [facility] Serum or plasma glucose annabel urement (mass/volume)Ordered By: Chidi Bowen on 03-23-2022 Glucose [Mass/Vol] 101 mg/dL 70-100 [facility] Comment on above: ADA recommended refe rence rangeRandom Glucose Reference Range is dependent on time and content of last meal. Glucose of more than 200 mg/dL in a nonstressed, ambulatory subject supports the diagnosis of Diabetes Mellitus. Serum or plasma potassium me asurement (moles/volume)Ordered By: Chidi Bowen on 03-23-2022 Potassium [Moles/Vol] 3.6 mmol/L 3.5-5.1 [facility] Serum or plasma prealbumin m easurement (mass/volume)Ordered By: Chidi Bowen on 03-23-2022 Prealbumin [Mass/Vol] 16.4 mg/dL 18.0-38.0 [facility] Serum or plasma sodium measu rement (moles/volume)Ordered By: Chidi Bowen on 03-23-2022 Sodium [Moles/Vol] 137 mmol/L 136-146 [facility] Serum or plasma total biliru bin measurement (mass/volume)Ordered By: Chidi Bowen on 03-23-2022 Bilirubin [Mass/Vol] 0.6 mg/dL 0.3-1.2 [facility] Serum or plasma total carbon dioxide measurement (moles/volume)Ordered By: Chidi Bowen on 03-23-2022 CO2 [Moles/Vol] 29.7 mmol/L 22.0-30.[address] [facility] Serum or plasma urea nitroge n measurement (mass/volume)Ordered By: Chidi Bowen on 03-23-2022 Urea nitrogen [Mass/Vol] 46 mg/dL 9 [facility] Glucose Glucometer (BldC) [M ass/Vol]Ordered By: Abner Roa on 03-22-2022 Glucose [Mass/Vol] 183 mg/dL [facility] Comment on above: Random Glucose Refer ence Range is dependent on time and content of last meal. Glucose of more than 200 mg/dL in a nonstressed, ambulatory subject supports the diagnosis of Diabetes Mellitus. No Panel InformationOrdered By: Anber Roa on 03-22-2022 Bedside Glucose Comment Glu2: cleaned meter [facility] COVID-19 Positive/NegativeOr dered By: Abner Roa on 03-20-2022 SARS-CoV-2 (COVID-19) N gene GUS+probe Ql (Resp) Negative Negative [facility] Comment on above: Testing for SARS-CoV -2 by RT-PCRThis test was developed and its performance characteristics determined by [employer] ([employer]) and validated at the [facility]. This test has not been FDA [...] Bedside Glucose #2 Comment Will notify /kendall [facility] COVID-19 Positive/NegativeOr dered By: Abner Roa on 03-14-2022 SARS-CoV-2 (COVID-19) N gene GUS+probe Ql (Resp) Negative Negative [facility] Comment on above: Testing for SARS-CoV -2 by RT-PCRThis test was developed and its performance characteristics determined by [employer] ([employer]) and validated at the [facility]. This test has not been FDA [...] 03-05-2022 Basophils (Bld) [#/Vol] 0.0 10*3/uL 0.0-0.2 [facility] Basophils/100 WBC Auto (Bld) Ordered By: Abner Roa on 03-05-2022 Basophils/100 WBC (Bld) 0.4 % . [facility] Blood hemoglobin measurement (mass/volume)Ordered By: Abner Roa on 03-05-2022 Hemoglobin (Bld) [Mass/Vol] 11.8 g/dL 11.8-15.4 [facility] Blood leukocytes automated c ount (number/volume)Ordered By: Abner Roa on 03-05-2022 WBC (Bld) [#/Vol] 9.2 10*3/uL 4.5-11.0 [facility] Creatinine and Glomerular fi ltration rate.predicted panel (S/P/Bld)Ordered By: Abner Roa on 03-05-2022 Creatinine [Mass/Vol] 0.93 mg/dL 0.44-1.03 [facility] Eosinophils Auto (Bld) [#/Vo l]Ordered By: Abner Roa on 03-05-2022 Eosinophils (Bld) [#/Vol] 0.1 10*3/uL 0.0-0.45 [facility] Eosinophils/100 WBC Auto (Bl d)Ordered By: Abner Roa on 03-05-2022 Eosinophils/100 WBC (Bld) 1.4 % . [facility] Erythrocyte distribution wid th Auto (RBC) [Ratio]Ordered By: Abner Roa on 03-05-2022 Erythrocyte distribution width (RBC) [Ratio] 14.3 % 11.9-15.3 [facility] Estimated glomerular filtrat ion rate (GFR) non- AmericanOrdered By: Abner Roa on 03-05-2022 GFR/1.73 sq M.predicted among non-blacks MDRD (S/P/Bld) [Vol rate/Area] 60 mL/Min [facility] Hematocrit Auto (Bld) [Volum e fraction]Ordered By: Abner Roa on 03-05-2022 Hematocrit (Bld) [Volume fraction] 35.6 % 34.0-46.4 [facility] - Hematology and Cell countsOrdered By: Abner Roa on 03-05-2022 Nucleated RBC/100 WBC (Bld) [Ratio] 0.0 % 0-0.5 [facility] Lymphocytes Auto (Bld) [#/Vo l]Ordered By: Abner Roa on 03-05-2022 Lymphocytes (Bld) [#/Vol] 1.4 10*3/uL 1.00-4.8 [facility] Lymphocytes/100 WBC Auto (Bl d)Ordered By: Abner Roa on 03-05-2022 Lymphocytes/100 WBC (Bld) 15.4 % . [facility] MCH Auto (RBC) [Entitic mass ]Ordered By: Abner Roa on 03-05-2022 MCH (RBC) [Entitic mass] 30.4 pg 24.7-34.3 [facility] MCHC Auto (RBC) [Mass/Vol]Or dered By: Abner Roa on 03-05-2022 MCHC (RBC) [Mass/Vol] 33.2 g/dL 32.0-35.0 [facility] MCV Auto (RBC) [Entitic vol] Ordered By: Abner Roa on 03-05-2022 MCV (RBC) [Entitic vol] 91.7 fL 80-100 [facility] Monocytes Auto (Bld) [#/Vol] Ordered By: Abner Roa on 03-05-2022 Monocytes (Bld) [#/Vol] 0.8 10*3/uL 0.0-0.8 [facility] Monocytes/100 WBC Auto (Bld) Ordered By: Abner Roa on 03-05-2022 Monocytes/100 WBC (Bld) 9.2 % . [facility] Neutrophils Auto (Bld) [#/Vo l]Ordered By: Abner Roa on 03-05-2022 Neutrophils (Bld) [#/Vol] 6.8 10*3/uL 1.8-7.7 [facility] Neutrophils/100 WBC Auto (Bl d)Ordered By: Abner Roa on 03-05-2022 Neutrophils/100 WBC (Bld) 73.6 % . [facility] No Panel InformationOrdered By: Abner Roa on 03-05-2022 Estimated GFR () > 60 mL/Min [facility] Comment on above: GFR estimated refere nce range: According to KDOQI guidelines, <60 ml/min/1.73m2 is sufficient to diagnose a patient with chronic kidney disease. Pharmacy Creatinine Clearance (Chem N/A [facility] Platelet mean volume Auto (B ld) [Entitic vol]Ordered By: Abner Roa on 03-05-2022 Platelet mean volume (Bld) [Entitic vol] 7.5 fL 6.3-10.7 [facility] Platelets Auto (Bld) [#/Vol] Ordered By: Abner Roa on 03-05-2022 Platelets (Bld) [#/Vol] 285 10*3/uL 150-450 [facility] RBC Auto (Bld) [#/Vol]Ordere d By: Abner Roa on 03-05-2022 RBC (Bld) [#/Vol] 3.88 10*6/uL 3.60-5.[address] [facility] Serum or plasma anion gap de terminationOrdered By: Abner Roa on 03-05-2022 Anion gap [Moles/Vol] 14.8 mmol/L 6.0-15.0 [facility] Serum or plasma calcium annabel urement (mass/volume)Ordered By: Abner Roa on 03-05-2022 Calcium [Mass/Vol] 10.1 mg/dL 8.2-10.2 [facility] Serum or plasma chloride meagan surement (moles/volume)Ordered By: Abner Roa on 03-05-2022 Chloride [Moles/Vol] 99 mmol/L 95-114 [facility] Serum or plasma glucose annabel urement (mass/volume)Ordered By: Abner Roa on 03-05-2022 Glucose [Mass/Vol] 206 mg/dL 70-100 [facility] Comment on above: ADA recommended refe rence rangeRandom Glucose Reference Range is dependent on time and content of last meal. Glucose of more than 200 mg/dL in a nonstressed, ambulatory subject supports the diagnosis of Diabetes Mellitus. Serum or plasma potassium me asurement (moles/volume)Ordered By: Abner Roa on 03-05-2022 Potassium [Moles/Vol] 4.5 mmol/L 3.5-5.1 [facility] Serum or plasma sodium measu rement (moles/volume)Ordered By: Abner Roa on 03-05-2022 Sodium [Moles/Vol] 136 mmol/L 136-146 [facility] Serum or plasma total carbon dioxide measurement (moles/volume)Ordered By: Abner Roa on 03-05-2022 CO2 [Moles/Vol] 26.7 mmol/L 22.0-30.[address] [facility] Serum or plasma urea nitroge n measurement (mass/volume)Ordered By: Abner Roa on 03-05-2022 Urea nitrogen [Mass/Vol] 20 mg/dL 03-01 [facility] Diabetic Self Management [facility] 03-17-2020 Diabetic Self Management Education [id number] CD:127 [facility] Coding Summary.on 04-08-2019 Coding Summary. CODING DATE: 019 FINAL [facility] STATUS: PAYOR: Medicare ADMIT DX: REASON FOR [...] Theodore CphT Date Saved: 04/08/2019 02:24 pm [facility] Vital Signs Date Time Vital Sign Value Performing Clinician Facility 03-15-2024 09:15-0400 Diastolic blood pressure 85 mm[Hg] Vlad Cesar MD Work Phone: [facility] 03-15-2024 09:15-0400 Heart rate 50 /min Vlad Cesar MD Work Phone: [facility] 03-15-2024 09:15-0400 Respiratory rate 17 /min Vlad Cesar MD Work Phone: [facility] 03-15-2024 09:15-0400 SaO2% (BldA) [Mass fraction] 98 % Vlad Cesar MD Work Phone: [facility] 03-15-2024 09:15-0400 Systolic blood pressure 130 mm[Hg] Vlad Cesar MD Work Phone: [facility] 01-08-2024 10:56-0400 Diastolic blood pressure 67 mm[Hg] Rachelle Contreras MD [facility] 01-08-2024 10:56-0400 Systolic blood pressure 155 mm[Hg] Rachelle Contreras MD [facility] 10-23-2023 10:33-0400 Body height 162.56 cm II Vlad Cesar Work Phone: [facility] 10-23-2023 10:33-0400 Body mass index (BMI) [Ratio] 38.6 kg/m2 II Vlad Cesar Work Phone: [facility] 10-23-2023 10:33-0400 Body weight 102 kg II Vlad Cesar Work Phone: [facility] 08-19-2023 11:27-0400 Body height 157.5 cm Robbi Uribe MD Work Phone: [facility] 08-19-2023 11:27-0400 Body mass index (BMI) [Ratio] 41.15 kg/m2 Robbi Uribe MD Work Phone: [facility] 08-19-2023 11:27-0400 Body weight 102.06 kg Robbi Uribe MD Work Phone: [facility] 08-19-2023 11:27-0400 Diastolic blood pressure 58 mm[Hg] Robbi Uribe MD Work Phone: [facility] 08-19-2023 11:27-0400 Heart rate 63 /min Robbi Uribe MD Work Phone: [facility] 08-19-2023 11:27-0400 Systolic blood pressure 149 mm[Hg] Robbi Uribe MD Work Phone: [facility] 07-21-2023 10:26-0500 Body height 158.8 cm Vlad Cesar MD Work Phone: [facility] 07-21-2023 10:26-0500 Body mass index (BMI) [Ratio] 41.22 kg/m2 Vlad Cesar MD Work Phone: [facility] 07-21-2023 10:26-0500 Body weight 103.87 kg Vlad Cesar MD Work Phone: [facility] 07-21-2023 10:26-0500 Diastolic blood pressure 82 mm[Hg] Vlad Cesar MD Work Phone: [facility] 07-21-2023 10:26-0500 Heart rate 66 /min Vlad Cesar MD Work Phone: [facility] 07-21-2023 10:26-0500 SaO2% (BldA) [Mass fraction] 98 % Vlad Cesar MD Work Phone: [facility] 07-21-2023 10:26-0500 Systolic blood pressure 136 mm[Hg] Vlad Cesar MD Work Phone: [facility] 03-13-2023 10:20-0400 Body height 162.56 cm Abner Roa Other [facility] Other 03-13-2023 10:20-0400 Body mass index (BMI) [Ratio] 45.83 kg/m2 Abner Roa Other [facility] Other 03-13-2023 10:20-0400 Body weight 121.11 kg Abner Roa Other [facility] Other 09-12-2022 10:40-0400 Body height 162.56 cm Abner Roa Other [facility] Other 09-12-2022 10:40-0400 Body mass index (BMI) [Ratio] 42.05 kg/m2 Abner Roa Other [facility] Other 09-12-2022 10:40-0400 Body weight 111.13 kg Abner Roa Other [facility] Other 09-12-2022 10:40-0400 Diastolic blood pressure 80 mm[Hg] Abner Roa Other [facility] Other 09-12-2022 10:40-0400 Systolic blood pressure 128 mm[Hg] Abner Roa Other [facility] Other 06-13-2022 16:20-0500 Body height 162.56 cm Abner Roa Other [facility] Other 06-13-2022 16:20-0500 Body mass index (BMI) [Ratio] 42.91 kg/m2 Abner Roa Other [facility] Other 06-13-2022 16:20-0500 Body weight 113.4 kg Abner Roa Other [facility] Other 04-18-2022 12:00-0500 Body height 162.56 cm Abner Roa Other [facility] Other 04-18-2022 12:00-0500 Body mass index (BMI) [Ratio] 42.74 kg/m2 Abner Roa Other [facility] Other 04-18-2022 12:00-0500 Body weight 112.95 kg Abner Roa Other [facility] Other 04-03-2022 13:01-0400 Body temperature 97.7 [degF] II Vlad Cesar Work Phone: [facility] 04-03-2022 13:01-0400 Diastolic blood pressure 66 mm[Hg] II Vlad Cesar Work Phone: [facility] 04-03-2022 13:01-0400 Heart rate 61 /min II Vlad Cesar Work Phone: [facility] 04-03-2022 13:01-0400 Respiratory rate 20 /min II Vlad Cesar Work Phone: [facility] 04-03-2022 13:01-0400 SaO2% (BldA) [Mass fraction] 96 % II Vlad Cesar Work Phone: [facility] 04-03-2022 13:01-0400 Systolic blood pressure 149 mm[Hg] II Vlad Cesar Work Phone: [facility] 04-03-2022 07:05-0400 Body height 160.02 cm II Vlad Cesar Work Phone: [facility] 03-31-2022 06:02-0400 Body weight 115.1 kg II Vlad Cesar Work Phone: [facility] 03-22-2022 14:02-0400 Diastolic blood pressure 73 mm[Hg] II Vlad Cesar Work Phone: [facility] 03-22-2022 14:02-0400 Systolic blood pressure 134 mm[Hg] II Vlad Cesar Work Phone: [facility] 03-22-2022 11:12-0400 Body temperature 97.6 [degF] II Vlad Cesar Work Phone: [facility] 03-22-2022 11:12-0400 Heart rate 66 /min II Vlad Cesar Work Phone: [facility] 03-22-2022 11:12-0400 Respiratory rate 16 /min II Vlad Cesar Work Phone: [facility] 03-22-2022 11:12-0400 SaO2% (BldA) [Mass fraction] 95 % II Vlad Cesar Work Phone: [facility] 03-22-2022 06:41-0400 Body weight 116 kg II Vlad Cesar Work Phone: [facility] 03-20-2022 17:30-0400 Inhaled oxygen flow rate 2 L/min II Vlad Cesar Work Phone: [facility] 03-19-2022 09:55-0400 Body height 160.02 cm II Vlad Cesar Work Phone: [facility] 03-18-2022 08:15-0400 Body mass index (BMI) [Ratio] 44.5 kg/m2 II Vlad Cesar Work Phone: [facility] 01-15-2022 14:40-0400 Body height 162.56 cm Abner Roa Other [facility] Other 01-15-2022 14:40-0400 Body mass index (BMI) [Ratio] 42.74 kg/m2 Abner Roa Other [facility] Other 01-15-2022 14:40-0400 Body weight 112.95 kg Abner Roa Other [facility] Other 12-07-2021 12:30-0400 Body height 162.56 cm Devang Saavedra Other [facility] Other 12-07-2021 12:30-0400 Body mass index (BMI) [Ratio] 42.74 kg/m2 Devang Saavedra Other [facility] Other 12-07-2021 12:30-0400 Body weight 112.95 kg Devang Saavedra Other [facility] Other 12-07-2021 12:30-0400 Diastolic blood pressure 76 mm[Hg] Devang Saavedra Other [facility] Other 12-07-2021 12:30-0400 Systolic blood pressure 132 mm[Hg] Deavng Saavedra Other [facility] Other 12-06-2021 16:00-0400 Body height 162.56 cm Abner Roa Other [facility] Other 12-06-2021 16:00-0400 Body mass index (BMI) [Ratio] 43.59 kg/m2 Abner Roa Other [facility] Other 12-06-2021 16:00-0400 Body weight 115.21 kg Abner Roa Other [facility] Other 11-08-2021 17:15-0400 Body weight 115.21 kg Devang Saavedra Other [facility] Other 11-08-2021 17:15-0400 Diastolic blood pressure 72 mm[Hg] Devang Saavedra Other [facility] Other 11-08-2021 17:15-0400 SaO2% (BldA) [Mass fraction] 98 % Devang Saavedra Other [facility] Other 11-08-2021 17:15-0400 Systolic blood pressure 136 mm[Hg] Devang Saavedra Other [facility] Other 10-24-2021 17:15-0400 Body weight 115.21 kg Devang Saavedra Other [facility] Other 10-24-2021 17:15-0400 Diastolic blood pressure 70 mm[Hg] Devang Saavedra Other [facility] Other 10-24-2021 17:15-0400 Systolic blood pressure 116 mm[Hg] Devang Saavedra Other [facility] Other 10-15-2021 11:45-0400 Body weight 120.57 kg Devang Saavedra Other [facility] Other 10-15-2021 11:45-0400 Diastolic blood pressure 66 mm[Hg] Devang Saavedra Other [facility] Other 10-15-2021 11:45-0400 SaO2% (BldA) [Mass fraction] 93 % Devang Saavedra Other [facility] Other 10-15-2021 11:45-0400 Systolic blood pressure 124 mm[Hg] Devang Saavedra Other [facility] Other 09-25-2021 11:30-0400 Body weight 121.47 kg Devang Saavedra Other [facility] Other 09-25-2021 11:30-0400 Diastolic blood pressure 62 mm[Hg] Devang Saavedra Other [facility] Other 09-25-2021 11:30-0400 SaO2% (BldA) [Mass fraction] 97 % Devang Saavedra Other [facility] Other 09-25-2021 11:30-0400 Systolic blood pressure 138 mm[Hg] Devang Saavedra Other [facility] Other Encounters Encounter Date Encounter Type Care Provider Facility Start: 03-19-2024 End: 03-19-2024 Telephone encounter Arminda Christianson CMA [facility] Start: 03-15-2024 End: 03-15-2024 Bamboo flowsheet Vlad Cesar MD Work Phone: [facility] Start: 03-15-2024 End: 03-15-2024 Bamboo flowsheet Vlad Cesar MD Work Phone: [facility] Start: 03-15-2024 End: 03-15-2024 ambulatory VLAD CESAR Not Available Start: 03-15-2024 End: 03-15-2024 Office outpatient visit 25 minutes Vlad Cesar MD Work Phone: [facility] Comment on above: Acute right-sided lo w back pain with right-sided sciatica (Primary Dx); Right lumbar radiculopathy; Muscle spasm Start: 03-09-2024 ambulatory Hemant Estrella [facility] Start: 03-08-2024 End: 03-08-2024 ambulatory JOHN NELY Not Available Start: 03-08-2024 ambulatory [facility] Start: 03-05-2024 End: 03-05-2024 ambulatory [facility] Start: 03-03-2024 End: 03-03-2024 ambulatory JAYDEN MARK Not Available Start: 03-02-2024 Office outpatient vi sit 25 minutes Hemant Manning [facility] Start: 03-02-2024 ambulatory Hemant Manning [facility] Start: 03-01-2024 End: 03-01-2024 ambulatory VLAD B CESAR Not Available Start: 02-26-2024 End: 02-26-2024 ambulatory JOHN NELY Not Available Start: 02-24-2024 End: 02-24-2024 ambulatory JOHN NELY Not Available Start: 02-18-2024 End: 02-18-2024 ambulatory JAYDEN MARK Not Available Start: 02-11-2024 End: 02-11-2024 ambulatory JOHN NELY Not Available Start: 02-05-2024 End: 02-05-2024 ambulatory NARINDER MEREDITH Not Available Start: 02-05-2024 End: 02-05-2024 ambulatory LORELEI BLACKVETO Not Available Start: 02-03-2024 End: 02-03-2024 ambulatory JOHN NELY Not Available Start: 01-27-2024 End: 01-27-2024 ambulatory JOHN NELY Not Available Start: 01-26-2024 End: 01-26-2024 ambulatory VLAD B CESAR Not Available Start: 01-22-2024 End: 01-22-2024 ambulatory JOHN NELY Not Available Start: 01-20-2024 End: 01-20-2024 ambulatory JOHN NELY Not Available Start: 01-14-2024 End: 01-14-2024 ambulatory JOHN NELY Not Available Start: 01-09-2024 End: 01-09-2024 ambulatory JOHN NELY Not Available Start: 01-08-2024 End: 01-08-2024 May Lance Rashedy Work Phone: [facility] Start: 01-08-2024 ambulatory May Lance Contreras [facility] Start: 01-07-2024 End: 01-07-2024 ambulatory JOHN MCKAY Not Available Start: 01-01-2024 End: 01-01-2024 ambulatory JAYDEN MARK Not Available Start: 12-30-2023 End: 12-30-2023 ambulatory JAYDEN MARK Not Available Start: 12-19-2023 End: 12-19-2023 ambulatory NATI VIRK Not Available Start: 12-15-2023 End: 12-15-2023 ambulatory [facility] Start: 12-09-2023 End: 12-09-2023 May Lance Plattedy Work Phone: [facility] Start: 12-04-2023 End: 12-04-2023 ambulatory [facility] Start: 11-24-2023 End: 11-24-2023 ambulatory VLAD CESAR Not Available Start: 10-30-2023 End: 10-30-2023 Office outpatient new 45 minutes October Lance Plattedy Work Phone: [facility] Start: 10-23-2023 End: 10-23-2023 ambulatory Abner Roa Facility:[facility] Start: 10-23-2023 End: 10-23-2023 ambulatory II Vlad Cesar Work Phone: [facility] Work Phone: Start: 10-23-2023 End: 10-23-2023 Patient encounter procedure II Vlad Cesar Work Phone: [facility] Work Phone: Start: 10-21-2023 End: 10-21-2023October Lance Rashedy Work Phone: [facility] Start: 10-14-2023 End: 10-14-2023 ambulatory [facility] Start: 10-08-2023 Evaluation and management of inpatient [facility] Start: 10-08-2023 ambulatory [facility] Start: 10-08-2023 End: 10-09-2023 Evaluation and management of inpatient [facility] Start: 10-01-2023 End: 10-01-2023 ambulatory MYA BINGHAMTEJAS Not Available Start: 09-26-2023 End: 09-26-2023 ambulatory [facility] Start: 09-24-2023 End: 09-24-2023 ambulatory VLAD CESAR Not Available Start: 09-09-2023 Evaluation and management of inpatient JOSHUA [facility] Start: 09-09-2023 ambulatory [facility] Start: 09-09-2023 End: 09-10-2023 Evaluation and management of inpatient RUPERTO GONZALES [facility] Start: 09-04-2023 Telephone encounter [facility] Comment on above: NEW PATIENT REFERRAL Start: 08-19-2023 End: 08-19-2023 Office outpatient visit 25 minutes [facility] Comment on above: TIA (transient ische bibi attack) (Primary Dx); Bilateral carpal tunnel syndrome Start: 08-19-2023 End: 08-19-2023 ambulatory [facility] Start: 07-31-2023 End: 07-31-2023 ambulatory [facility] Start: 07-21-2023 End: 07-21-2023 Transitional care manage srvc 14 day discharge Vlad Cesar MD Work Phone: [facility] Comment on above: COVID (Primary Dx); NSTEMI (non-ST elevated myocardial infarction) (CMS/HCC); Acute on chronic diastolic heart failure (CMS/HCC); Type 2 diabetes mellitus with hyperglycemia, with long-term current use of insulin (CMS/HCC); 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); Morbid (severe) obesity due to excess calories (E66.01); Body mass index [BMI] 45.0-49.9, adult (Z68.42); 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 ([facility]/HCC) Start: 07-21-2023 End: 07-21-2023 ambulatory VLAD CESAR Not Available Start: 07-16-2023 End: 07-16-2023 ambulatory NIRAJ SAN [facility] Start: 07-08-2023 Telephone encounter Tasha Girard RN [facility] Start: 07-07-2023 End: 07-07-2023 Evaluation and management of inpatient SHAWNA DEANA [facility] Start: 07-04-2023 Evaluation and management of inpatient ANGELIKA DANIELLE [facility] Start: 07-04-2023 Evaluation and management of inpatient [facility] Start: 07-04-2023 Evaluation and management of inpatient DALE [facility] Start: 07-03-2023 Evaluation and management of inpatient IVORY GERRY [facility] Start: 07-02-2023 End: 07-07-2023 Evaluation and management of inpatient IVON LACY [facility] Start: 06-26-2023 End: 06-26-2023 ambulatory MYA FELIX Not Available Start: 06-25-2023 End: 06-25-2023 ambulatory VLAD CESAR Not Available Start: 04-21-2023 End: 04-21-2023 ambulatory VLAD CESAR Not Available Start: 03-13-2023 Office outpatient vi sit 15 minutes Abner Roa [facility] Start: 03-13-2023 End: 03-13-2023 ambulatory Abner Roa Facility:[facility] Start: 03-13-2023 End: 03-13-2023 ambulatory II Vlad Cesar Work Phone: [facility] Work Phone: Start: 03-13-2023 End: 03-13-2023 Patient encounter procedure II Vlad Cesar Work Phone: [facility] [place] Work Phone: Start: 12-12-2022 End: 12-12-2022 ambulatory Abner Roa Facility:[facility] Start: 11-06-[address] VLAD CESAR Facilit y:[facility] Start: 09-12-2022 Office outpatient vi sit 15 minutes Abner Roa [facility] Start: 09-12-2022 End: 09-12-2022 ambulatory II Vlad Cesar Work Phone: [facility] Work Phone: Start: 09-12-2022 End: 09-12-2022 Patient encounter procedure II Vlad Cesar Work Phone: [facility] [place] Work Phone: Start: 06-13-2022 End: 06-13-2022 Patient encounter procedure II Vlad Cesar Work Phone: [facility] [place] Work Phone: Start: 06-13-2022 End: 06-13-2022 ambulatory II Vlad Cesar Work Phone: [facility] Work Phone: Start: 06-13-2022 Postop follow up vis it related to original px Abner Roa [facility] Start: 05-17-2022 End: 05-18-[address] VLAD CESAR Facility:[facility] Start: 05-14-2022 End: 05-14-[address] VLAD CESAR Facility:[facility] Start: 05-09-2022 End: 05-09-2022 ambulatory II Vlad Cesar Work Phone: [facility] Work Phone: Start: 05-09-2022 End: 05-09-2022 Discharged Recurring II Vlad Cesar Work Phone: [facility] [place] Work Phone: Start: 05-09-2022 Registered Recurring II Vlad Cesar Work Phone: [facility] [place] Work Phone: Start: 04-18-2022 End: 04-18-2022 ambulatory Abner Roa Other [facility] Other Start: 04-18-2022 Postop follow up vis it related to original px Abner Roa [facility] Start: 04-09-2022 End: 04-09-2022 ambulatory II Vlad Cesar Work Phone: [facility] Work Phone: Start: 04-09-2022 End: 04-09-2022 Patient encounter procedure II Vlad Cesar Work Phone: [facility] Start: 03-22-2022 End: 04-03-2022 Evaluation and management of inpatient II Vlad Cesar Work Phone: [facility] Start: 03-18-2022 Admission to [facility] Abner Roa [facility] Start: 03-18-2022 End: 03-18-2022 ambulatory Abner Roa Other [facility] Other Start: 03-18-2022 End: 03-22-2022 Evaluation and management of inpatient II Vlad Cesar Work Phone: [facility] Start: 03-14-2022 End: 03-14-2022 ambulatory II Vlad Cesar Work Phone: [facility] Work Phone: Start: 03-14-2022 End: 03-14-2022 Patient encounter procedure II Vlad Cesar Work Phone: [facility] Start: 03-05-2022 End: 03-05-2022 ambulatory II Vlad Cesar Work Phone: [facility] Work Phone: Start: 03-05-2022 End: 03-05-2022 Patient encounter procedure II Vlad Cesar Work Phone: [facility]-Pre-Surgical Testing Start: 01-15-2022 End: 01-15-2022 ambulatory Abner Roa Other [facility] Other Start: 01-15-2022 Office outpatient vi sit 40 minutes Abner Roa [facility] Start: 01-09-2022 End: 01-09-2022 Patient encounter procedure MD Abner Roa Work Phone: [facility] Start: 01-07-2022 End: 01-07-2022 ambulatory Devang Saavedra Other [facility] Other Start: 01-07-2022 Telephone encounter Devang Saavedra [facility] Start: 01-03-2022 End: 01-03-2022 Patient encounter procedure MD Abner Roa Work Phone: [facility] [place] Start: 12-07-2021 End: 12-07-2021 ambulatory Devang Saavedra Other [facility] Other Start: 12-07-2021 Office outpatient vi sit 25 minutes Devang Saavedra [facility] [place] Start: 12-06-2021 End: 12-06-2021 ambulatory Abner Roa Other [facility] Other Start: 12-06-2021 Office outpatient ne w 30 minutes Abner Roa [facility] Start: 11-09-2021 End: 11-09-2021 ambulatory Abner Roa Other [facility] Other Start: 11-09-2021 Telephone encounter Abner Roa [facility] Start: 11-08-2021 End: 11-08-2021 ambulatory Devang Saavedra Other [facility] Other Start: 11-08-2021 Office outpatient vi sit 25 minutes Devang Keri [facility] Start: 10-24-2021 End: 10-24-2021 ambulatory Devang Keri Other [facility] Other Start: 10-24-2021 Office outpatient vi sit 25 minutes Devang Keri [facility] Start: 10-15-2021 End: 10-15-2021 ambulatory Devang Keri Other [facility] Other Start: 10-15-2021 Office outpatient vi sit 25 minutes Devang Keri [facility] Start: 10-04-2021 (Procedure) Short Devang Saavedra [facility] Start: 10-04-2021 End: 10-04-2021 ambulatory Devangolga Saavedra Other [facility] Other Start: 09-25-2021 End: 09-25-2021 ambulatory Devangolga Saavedra Other [facility] Other Start: 09-25-2021 Office outpatient ne w 45 minutes Devang Keri [facility] Start: 08-18-2018 End: 08-19-2018 Patient encounter procedure DEFAULT PHYSICIAN Facility:[facility] Start: 08-17-2018 End: 08-18-2018 Patient encounter procedure DEFAULT PHYSICIAN Facility:[facility] Procedures Date Procedure Procedure Detail Performing Clinician Start: 03-09-2024 Intravitreal njx pharmacologic agt spx Hemant Estrella Start: 03-09-2024 Vabysmo Prefilled Syringe Hemant Hernandez Start: 03-02-2024 Complex e/m visit add on Hemant Quarles Start: 03-02-2024 Computerized ophthalmic imaging retina Hemant Estrella Start: 01-08-2024 End: 01-08-2024 Computerized ophthalmic imaging retina Rachelle Contreras MD Start: 01-08-2024 End: 01-08-2024 Eylea 1mg Pre-filled Syringe Rachelle Contreras MD Start: 01-08-2024 Eylea 1mg Pre-filled Syringe Hemant Manning Paul Start: 01-08-2024 End: 01-08-2024 Intravitreal njx pharmacologic agt spx May Lance Contreras MD Start: 12-09-2023 End: 12-09-2023 Computerized ophthalmic imaging retina May Lance Contreras MD Start: 12-09-2023 End: 12-09-2023 Eylea 1mg Pre-filled Syringe May Lance Contreras MD Start: 12-09-2023 End: 12-09-2023 Intravitreal njx pharmacologic agt spx May Lance Contreras MD Start: 12-04-2023 Mammography Vlad Cesar MD Work Phone: Start: 10-30-2023 End: 10-30-2023 Computerized ophthalmic imaging [...] Treatment Date Care Activity Detail Author Start: 12-14-2024 Adult BMI Screening [facility] Start: 12-14-2024 Tobacco Screening Tobacco [facility]ening [facility] Start: 12-03-2024 Screening for malignant neoplasm of breast Mammogram [facility] Start: 10-08-2024 Urine screening for protein Diabetes: Urine Protein Screening [facility] Start: 08-18-2024 Adult BMI Screening Adult BMI Screening [facility] Start: 08-18-2024 Depression Screening [facility]ening [facility] Start: 08-18-2024 Tobacco Screening Tobacco Screening [facility] Start: 06-25-2024 Medicare Annual Wellness (AWV) Medicare Annual Wellness (AWV) [facility] Start: 06-25-2024 Pneumococcal Vaccine: 65+ Years (1 - PCV) Pneumococcal Vaccine: 65+ Years (1 - PCV) [facility] Comment on above: Postponed from 1958 (Patient Refus ed) Start: 06-25-2024 Pneumococcal Vaccine: 65+ Years (1 of 2 - PCV) Pneumococcal Vaccine: 65+ Years (1 of 2 - PCV) [facility] Comment on above: Postponed from 1958 (Patient Refus ed) Start: 06-25-2024 Screening for malignant neoplasm of colon Colorectal Cancer Screening [facility] Comment on above: Postponed from 1952 (Patient Refus ed) Start: 06-17-2024 End: 06-17-2024 Patient encounter procedure 06/17/2024 10:30 AM EST Appointment [facility] [address] [place] [address] [address] [place] [address] [facility] [place] - Neurophysiology Start: 06-15-2024 End: 06-15-2024 Patient encounter procedure 06/15/2024 11:00 AM EST Office Visit [facility] [address] [place] [phone] Casey العلي MD [address] [place] [address], [address], [address], [address] [place] [phone] [facility] Start: 05-31-2024 Hemoglobin A1c measurement Diabetes: Hemoglobin A1C [facility] Start: 04-15-2024 End: 04-15-2024 Patient encounter procedure 04/15/2024 3:50 PM EST Office Visit [facility] [address] [facility] [address] [place] [phone] Narinder Meredith DPMona [address] [facility] 5 [place] [address] [facility] Start: 04-02-2024 End: 04-02-2024 Patient encounter procedure 04/02/2024 11:00 AM EDT Office Visit [facility] [address] [facility] [address] [place] [phone] Vlad Cesar MD [address] [facility] [address] [place] [address] [facility] Start: 03-10-2024 Urine screening for protein Diabetes: Urine Protein Screening [facility] Start: 02-08-2024 Influenza vaccination [facility] Start: 02-05-2024 Laura Lawson 4wks Io Eyl Od [facility] Work Phone: Start: 12-15-2023 End: 12-15-2023 Patient encounter procedure 12/15/2023 11:00 AM EDT Office Visit [facility] [address] [place] [phone] Casey العلي MD [address] [place] [address], [address], [address], [address] [place] [phone] [facility] Start: 12-07-2023 Influenza vaccination Influenza Vaccine (#1) [facility] Comment on above: Postponed from 02/07/2023 (Patient Refus ed) Start: 11-07-2023 Screening for malignant neoplasm of breast Mammogram [facility] Start: 10-25-2023 Glaucoma screening Diabetes: Retinopathy Screening [facility] Start: 10-21-2023 Smoking cessation education Tobacco cessation counseling [facility] Start: 10-02-2023 Hemoglobin A1c measurement Diabetes: Hemoglobin A1C [facility] Start: 09-24-2023 End: 09-24-2023 Patient encounter procedure 09/24/2023 11:00 AM EDT Office Visit [facility] [address] [facility] [address] [place] [phone] Vlad Cesar MD [address] [facility] [address] [place] [address] [facility] Start: 09-23-2023 End: 09-23-2023 Patient encounter procedure 09/23/2023 1:00 PM EDT Procedure Visit [facility] [address] [place] [address] Ellsworth, Mya S, DPM [address] [address] [place] [address] [facility] Start: 08-19-2023 End: 08-19-2023 Patient encounter procedure 08/19/2023 11:30 AM EDT Office Visit [facility] [address] [place] [phone] Robbi Uribe MD [address] [facility], [address], [address], [address] [place] [address] [facility] Start: 07-30-2023 End: 07-30-2023 Patient encounter procedure 07/30/2023 11:30 AM EST Office Visit [facility] [address] [facility] [address] [place] [phone] Vlad Cesar MD [address] [facility] [address] [place] [address] [facility] Start: 02-07-2023 Influenza vaccination Influenza Vaccine [facility] Start: 04-03-2022 [facility] Start: 03-22-2022 Hospital admission [facility] Start: 03-22-2022 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 [facility] Start: 03-21-2022 [facility] Start: 03-18-2022 Computer Assisted Procedure of Trunk Region Computer Assisted Procedure of Trunk Region [facility] Start: 03-18-2022 Excision of Lumbar Vertebral Disc, Open Approach Excision of Lumbar Vertebral Disc, Open Approach [facility] Start: 03-18-2022 Fusion of 2 or more Lumbar Vertebral Joints with Interbody Fusion Device, Anterior Approach, Anterior Column, Open Approach Fusion of 2 or more Lumbar Vertebral Joints with Interbody Fusion Device, Anterior Approach, Anterior Column, Open Approach [facility] Start: 03-18-2022 Fusion of 2 or more Lumbar Vertebral Joints with Synthetic Substitute, Posterior Approach, Posterior Column, Open Approach Fusion of 2 or more Lumbar Vertebral Joints with Synthetic Substitute, Posterior Approach, Posterior Column, Open Approach [facility] Start: 03-18-2022 Introduction of Recombinant Bone Morphogenetic Protein into Joints, Open Approach Introduction of Recombinant Bone Morphogenetic Protein into Joints, Open Approach [facility] Start: 01-09-2022 Dual energy X-ray absorptiometry XR dexa axial skeleton [facility] Start: 01-09-2022 End: 01-09-2022 Patient encounter procedure Departed Clinical [facility] Start: 2017 Fall Risk Screening Fall Risk Screening [facility] Start: 2002 Administration of varicella zoster vaccine Zoster (Shingles) Vaccine (1 of 2) [facility] Start: 11-24-1971 DTaP,Tdap and Td Vaccines (1 - Tdap) DTaP,Tdap and Td Vaccines (1 - Tdap) [facility] Start: 1970 Adult BMI Follow Up Plan Adult BMI Follow Up Plan [facility] Start: 1970 Adult [facility]ening [facility] Start: 1970 Diabetic foot examination Diabetic Foot Exam [facility] [email or web address] Start: 1964 Depression Screening [facility] Start: 1964 Tobacco Screening [facility] Start: 1952 Glaucoma screening Diabetic Ophthalmology Exam [facility] [email or web address] Start: 1952 Medicare Annual Wellness Visit Medicare Annual Wellness Visit [facility] Start: 1952 Screening for malignant neoplasm of colon [facility] [employer] MR Lumbar spine WO contrast MR lumbar spine wo contrast Imaging Routine Right lumbar radiculopathy Ordered: 03/15/2024 [facility] [employer] Work Phone: Comment on above: Ordered: 03/15/2024 Patient Education TLSO and LSO [facility] Work Phone: Patient referral [facility] Work Phone: [facility] Payers Date Payer Category Payer Self-pay [id number] 2022 Private Health Insurance [id number] 2017 Medicare [id number] 1959 Medicare [id number] 2.1 [id number] 1959 Private Health Insurance [id number] 2.16.840.1.353125.19 1952 Unknown [id number] 2.16.8 40.1.654793.3.579.2.647 1952 Unknown [id number] 2.16.8 40.1.505765.3.579.2.647 1952 Unknown [id number] 2.16.84 0.1.190554.3.579.2.593 1952 Unknown [id number] 2.16.84 0.1.445261.3.579.2.593 1952 Unknown [id number] 2.16.84 0.1.736298.3.579.2.593 1952 Unknown [id number] 2.16.8 40.1.530563.3.579.2.1286 1952 Unknown [id number] 2.16.8 40.1.015368.3.579.2.1286 1952 Unknown [id number] 2.16.840 .1.225725.3.579.2.1347 1952 Unknown [id number] 2.16.840 .1.562177.3.579.2.1347 1952 Unknown [id number] 2.16.840 .1.248677.3.579.2.1347 1952 Unknown [id number] 2.16.840. 1.992669.3.579.2.1347 1952 Unknown [id number] 2.16.84 0.1.779458.3.579.2.1259 1952 Unknown [id number] 2.16.84 0.1.500965.3.579.2.9 1952 Unknown [id number] 2.16.84 0.1.954294.3.579.2.1258 1952 Unknown [id number] 2.16.84 0.1.221558.3.579.2.9 1952 Unknown [id number] 2.16.84 0.1.587528.3.579.2.1258 1952 Unknown [id number] 2.16.84 0.1.654276.3.579.2.1258 1952 Unknown [id number] 2.16.84 0.1.735484.3.579.2.1258 1952 Unknown [id number] 2.16.84 0.1.045688.3.579.2.1258 1952 Unknown [id number] 2.16.84 0.1.018757.3.579.2.1258 1952 Unknown [id number] 2.16.84 0.1.592266.3.579.2.1258 1952 Unknown [id number] 2.16.84 0.1.676790.3.579.2.9 1952 Unknown [id number] 2.16.84 0.1.197027.3.579.2.1258 1952 Unknown [id number] 2.16.84 0.1.113118.3.579.2.9 1952 Unknown [id number] 2.16.84 0.1.463925.3.579.2.1258 1952 Unknown [id number] 2.16.84 0.1.045793.3.579.2.9 1952 Unknown [id number] 2.16.84 0.1.887886.3.579.2.9 1952 Unknown [id number] 2.16.84 0.1.992001.3.579.2.1259 1952 Unknown [id number] 2.16.84 0.1.470660.3.579.2.1259 1952 Unknown [id number] 2.16.84 0.1.471449.3.579.2.1259 1952 Unknown [id number] 2.16.84 0.1.219754.3.579.2.1259 1952 Unknown [id number] 2.16.84 0.1.381697.3.579.2.1259 1952 Unknown [id number] 2.16.84 0.1.251237.3.579.2.1258 1952 Unknown [id number] 2.16.84 0.1.010927.3.579.2.9 1952 Unknown [id number] 2.16.84 0.1.698394.3.579.2.1259 1952 Unknown [id number] 2.16.84 0.1.259896.3.579.2.1259 1952 Unknown [id number] 2.16.84 0.1.200935.3.579.2.1259 1952 Unknown [id number] 2.16.84 0.1.704457.3.579.2.1259 1952 Unknown [id number] 2.16.840. 1.724331.3.579.2.1259 Unknown Unknown [id number] 2.16.8 40.1.051972.3.579.2.531 Unknown [id number] 2.16.8 40.1.230010.3.579.2.531 Unknown [id number] 2.16.8 40.1.083392.3.579.2.531 Social History Date Type Detail Facility Start: 01-12-2023 End: 08-19-2023 Sex Assigned At [facility] Start: 1950 Sex Assigned At Female [facility] Start: 03-05-2022 End: 08-19-2023 Tobacco smoking status NHIS Never smoked tobacco (finding) [facility] Tobacco smoking stat us AKIS Tobacco smoking consumption unknown [facility] Start: 1950 Sex Assigned At Not on file P [facility] Start: 12-20-2022 End: 08-19-2023 Tobacco use and exposure Smokeless tobacco non-user [facility] Start: 07-21-2023 End: 03-15-2024 Alcohol intake Lifetime non-drinker (finding) [facility] Start: 01-12-2023 End: 08-19-2023 [...] cups per day [facility] Start: 08-19-2023 End: 12-15-2023 Alcohol intake Ex-drinker (finding) [facility] Start: 01-08-2024 Health-related behav ior (observable entity) Caffeine Use Details [facility] Start: 01-08-2024 Tobacco use and exposure Non-Smoking Tobacco Use Details [facility] Do you belong to any clubs or organizations such as uatsdin groups, unions, fraternal or athletic groups, or school groups? Yes [facility] Are you now , , , , never or living with a partner? Never [facility] NEGATED: Highlighted rowStart: 01-08-2024 Tobacco smoking status NHIS Unknown if ever smoked [facility] NEGATED: Highlighted row Alcohol intake Alcohol Use Details [facility] NEGATED: Highlighted rowStart: 01-08-2024 History of tobacco use Current non-smoker [facility] Medical Equipment Procedure Code Equipment Code Equipment Origin al Text Equipment Identifier Dates Fusion, spine, lumbar, XLIF STRATOFUSE DBM 10CC FDA Start: 03-18-2022 Fusion, spine, lumbar, XLIF Bone-screw internal spinal fixation system, non-sterile [id number] FDA Start: 03-18-2022 Fusion, spine, lumbar, XLIF Orthopaedic bone screw, non-bioabsorbable, non-sterile [id number] FDA Start: 03-18-2022 Fusion, spine, lumbar, XLIF Orthopaedic instrument surgical connector [id number] FDA Start: 03-18-2022 Fusion, spine, lumbar, XLIF Bone-screw internal spinal fixation system, non-sterile [id number] FDA Start: 03-18-2022 Fusion, spine, lumbar, XLIF STRATOFUSE DBM 5CC FDA Start: 03-18-2022 Fusion, spine, lumbar, XLIF Spinal fusion graft kit [id number] FDA Start: 03-18-2022 Fusion, spine, lumbar, XLIF Metallic spinal fusion cage, non-sterile [id number] FDA Start: 03-18-2022 Fusion, spine, lumbar, XLIF Metallic spinal fusion cage, non-sterile [id number] FDA Start: 03-18-2022 Fusion, spine, lumbar, XLIF [...] XLIF STRATOFUSE DBM 5CC FDA Start: 03-18-2022 [id number] Start: 11-29-2022 1 each by Other route in the morning and 1 each at noon and 1 each in the evening and 1 each before bedtime. Take before meals. ONE TOUCH ULTRA STRIPS DX: e11.65. [id number] Start: 07-09-2023 Inject under the skin 2 (two) times a day. Use as instructed [id number] 2 (two) times a day. Use as instructed [id number] USE DIRECTED UNDER THE SKIN TWO TIMES DAILY [id number] Start: 11-24-2023 1 each by Other route in the morning and 1 each in the evening and 1 each before bedtime. ONE TOUCH ULTRA STRIPS DX: e11.65. [id number] Start: 03-01-2024 USE DIRECTED ONCE DAILY [id number] Start: 08-07-2023 Goals Date Patient Goal Desired Activity /State Functional Status Date Assessment Result Facility 04-03-2022 Functional status Patient is Pro gressing Toward Baseline [facility] Work Phone: 03-22-2022 Functional status Patient is Pro gressing Toward Baseline [facility] Work Phone: 03-18-2022 Functional status Patient at Baseline [facility] Work Phone: 03-05-2022 Functional status Disability Sta tus Patient at Baseline [facility] Work Phone: Mental Status Date Assessment Result Facility 04-03-2022 Cognitive function Cognitive Sta tus Patient at Baseline [facility] Work Phone: 03-22-2022 Cognitive function Cognitive Sta tus Patient at Baseline [facility] Work Phone: 03-18-2022 Cognitive function Cognitive Sta tus Patient at Baseline [facility] Work Phone: Clinical Notes 09-25-2021 to 03-19-2024 Telephone Encounter - Arminda Christianson CMA - 03/19/2024 10:33 AM EDTTelephone Encounter - Arminda Christianson CMA - 03/19/2024 10:33 AM EDTVlad Cesar MD - 03/15/2024 9:00 AM EDT Note Date & Type Note Facility 03-19-2024 Miscellaneous Notes Per last ov note, patient is to be called in 6 months and see how she is doing. Patient states she is doing great; she is currently following up with Dr. Gomez for carpel tunnel. She wishes to follow up as needed. She is to call if there are any questions or concerns. Closing note. [facility] Telephone encounter Note Per last ov note, patient is to be called in 6 months and see how she is doing. Patient states she is doing great; she is currently following up with Dr. Gomez for carpel tunnel. She wishes to follow up as needed. She is to call if there are any questions or concerns. [facility]osing note. [facility] 03-15-2024 History of Present illness Narrative Images from the original note were not included. HPI Med Refill Additional comments: baclofen Last edited by Trice Morales MA on 03/15/2024 9:15 AM. HPI Med Refill Additional comments: baclofen Last edited by Trice Morales MA on 03/15/2024 9:15 AM. Subjective Patient ID: Laura Lawson is a 73 y.o. female who presents for lower back pain. Laura is in today for back pain, complains of pain on the right side of her lower back. Seen nati on 12/18 and was referred to pt and stated the pain in her thigh area went away but the pain in her lower back is getting worse. Pain is constant, severity of pain changes during the day though. Does not take anything for the pain Current Outpatient Medications on File Prior to Visit Medication Sig Dispense Refill allopurinol (Zyloprim) 300 MG tablet TAKE 1 TABLET DAILY 100 tablet 3 aspirin 81 MG EC tablet Take 81 mg by mouth in the morning. atorvastatin (Lipitor) 80 MG tablet Take 80 mg by mouth Daily BD Insulin Syringe U/F 31G X 5/16 1 ML misc USE DIRECTED UNDER THE SKIN TWO TIMES DAILY 180 each 3 candesartan (Atacand) 32 MG tablet TAKE 1 TABLET DAILY 90 tablet 3 carvedilol (Coreg) 6.25 MG tablet TAKE 1 TABLET IN THE MORNING AND IN THE EVENING. TAKE WITH MEALS 200 tablet 3 clopidogrel (Plavix) 75 MG tablet Take 1 tablet (75 mg) by mouth in the morning. 90 tablet 0 [facility] Clotrimazole 3 2 % vaginal cream INSERT 1 APPLICATORFUL VAGINALLY AT BEDTIME FOR 5 NIGHTS dapagliflozin (Farxiga) 10 MG TAKE 1 TABLET DAILY 100 tablet 3 dulaglutide (Trulicity) 3 MG/0.5ML solution pen-injector Inject 3 mg under the skin 1 (one) time per week 4 each 11 ezetimibe (Zetia) 10 MG tablet Take 1 tablet (10 mg) by mouth in the morning. 30 tablet 11 glucose blood test strip 1 each by Other route in the morning and 1 each in the evening and 1 each before bedtime. ONE TOUCH ULTRA STRIPS DX: e11.65. 100 each 1 HANDICAP PLACARD 5 YEAR 5 Units by Other route in the morning. 5 Year Duration for Handicap Placard. 1 Units 4 hydrALAZINE (Apresoline) 25 MG tablet Take 25 mg by mouth in the morning and 25 mg before bedtime. Insulin Lispro (HumaLOG) 100 UNIT/ML solution Inject 25 Units under the skin in the morning and 25 Units at noon and 25 Units in the evening. Inject before meals. insulin pen needle (BD Pen Needle Cass 2nd Gen) 32G x 4 mm misc USE DIRECTED ONCE DAILY 100 each 3 insulin syringe-needle U-100 31G X 5/16 0.5 mL misc Inject under the skin 2 (two) times a day. Use as instructed Klayesta [id number] UNIT/GM powder Apply 1 application topically in the morning and 1 application before bedtime. meloxicam (Mobic) 15 MG tablet TAKE 1 [...] before bedtime. Do not crush or chew.. sacubitril-valsartan (Entresto) 49-51 MG tablet Take 1 tablet by mouth in the morning and 1 tablet before bedtime. 200 tablet 3 spironolactone (Aldactone) 25 MG tablet torsemide (Demadex) 20 MG tablet Take 1 tablet (20 mg) by mouth in the morning and 1 tablet (20 mg) in the evening. Take before meals. Toujeo Max SoloStar 300 UNIT/ML injection Inject 100 Units under the skin in the morning. [DISCONTINUED] baclofen (Lioresal) 10 MG tablet Take 1 tablet (10 mg) by mouth in the morning and 1 tablet (10 mg) before bedtime. 200 tablet 2 No current facility-administered medications on file prior to visit. I have reviewed and reconciled the history and medication list with the patient today. Allergies Allergen Reactions Gabapentin Palpitations Tramadol Other Social History Tobacco Use Smoking status: Never Smokeless tobacco: Never Substance Use Topics Alcohol use: Never Comment: Caffeine: 1-2 cups per day Drug use: Never Family History Problem Relation Name Age of Onset Other (GERD disease) Mother Skin cancer Mother Other (myocardial infarction) Father Sen Lawson Diabetes Father Sen Lawson Hypertension Father Sen Lawson Heart disease Father Sen Lawson No Known Problems Sister Cancer Maternal Grandfather Deep Brice teri Cancer Mother's Sister Cherellebarby Naidu Diabetes Father's Sister Nancy Logan Past Medical History: Diagnosis Date Angiomyolipoma of kidney Arthritis Unknown COPD (chronic obstructive pulmonary disease) (CMS/HCC) Coronary artery disease (CAD) excluded Diabetes (CMS/HCC) GERD (gastroesophageal reflux disease) Gout Hyperlipidemia (CMS/HCC) Hypertension (CMS/HCC) Kidney stones Obesity Sleep apnea Thyroid disease (CMS/HCC) Type 2 diabetes mellitus (CMS/HCC) Umbilical hernia without obstruction and without gangrene Past Surgical History: Procedure Laterality Date APPENDECTOMY BI MAMMOGRAM DIAGNOSTIC BILATERAL 2014 CARPAL TUNNEL RELEASE CORONARY ANGIOPLASTY WITH STENT PLACEMENT 2013 CT ANGIO HEAD 07/04/2023 CT ANGIO HEAD 07/04/2023 CT ANGIOGRAM NECK 07/04/2023 CT ANGIOGRAM NECK 07/04/2023 EYE EXAM 2013 Disease:Diabetes mellitus, type 2 HERNIA REPAIR [place] ARTHRD ANT INTERBODY MIN DSC LUMBAR 03/18/2022 L3-L5 Anterior Lumbar Interbody Fusion, Pedicle Screw Replacement SPINE SURGERY [id number] THYROIDECTOMY TOTAL VAGINAL HYSTERECTOMY Visit Vitals BP 130/85 Pulse 50 Resp 17 SpO2 98% Smoking Status Never Review of Systems Neurological: Positive for weakness. Objective Physical Exam Constitutional: General: She is not in acute distress. Appearance: Normal appearance. She is well-developed. She is obese. HENT: Head: Normocephalic and atraumatic. Eyes: General: No scleral icterus. Conjunctiva/sclera: Conjunctivae normal. Cardiovascular: Rate and Rhythm: Normal rate and regular rhythm. Heart sounds: Normal heart sounds. No murmur heard. Pulmonary: Effort: Pulmonary effort is normal. No respiratory distress. Breath sounds: Normal breath sounds. No wheezing, rhonchi or rales. Musculoskeletal: Lumbar back: Spasms and tenderness present. Negative right straight leg raise test and negative left straight leg raise test. Right lower le+ Pitting Edema present. Left lower le+ Pitting Edema present. Comments: Markedly tender over right SI joint and right lower lumbar region, pain with going from seated to standing position. Skin: General: Skin is warm and dry. Neurological: General: No focal deficit present. Mental Status: She is alert and oriented to person, place, and time. Gait: Gait abnormal. Comments: Using rolling walker for ambulation. Psychiatric: Mood and Affect: Mood normal. Behavior: Behavior normal. Assessment/Plan Diagnoses and all orders for this visit: Acute right-sided low back pain with right-sided sciatica Right lumbar radiculopathy - MR lumbar spine wo contrast - This has been ongoing for 3 months, no response to Physical Therapy. Had lumbar surgery 2 years ago and had been doing fine. - tiZANidine (Zanaflex) 4 MG tablet; Take 1 tablet (4 mg) by mouth every 6 (six) hours if needed for muscle spasms for up to 10 days Muscle spasm - baclofen (Lioresal) 10 MG tablet; Take 1 tablet (10 mg) by mouth in the morning and 1 tablet (10 mg) before bedtime. Follow up for After MRI. documented in this encounter [facility] 03-05-2024 Note [place] [facility] - [facility] Subjective Laura Lawson is a 73 y.o. year old female patient being seen for 3 mo follow up chronic systolic heart failure, CAD, hypertension, and pericardial effusion. Had labs w/ lipid panel a few days ago. Sometimes doesn't take diuretic due to travel and frequent urination. Only taking it once daily. Denies chest pain, SOB, and palpitations. Weight remains stable from last apt but she thinks LE edema is worsening. States she hasn't taken any of her medications yet today. Patient Active Problem List Diagnosis Allergic rhinitis Angiomyolipoma of kidney Benign essential hypertension Cerebrovascular disease Chronic foot ulcer ([facility]/HCC) Coronary atherosclerosis Decreased estrogen level Diabetic retinopathy associated with type 2 diabetes mellitus ([facility]) Diaphragmatic hernia Difficulty walking Dyspnea on exertion Generalized osteoarthritis Gout History of arthritis History of hysterectomy Hyperglycemia due to type 2 diabetes mellitus ([facility]) 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 ([facility]) Low back pain Morbid obesity ([facility]) Neoplasm of uncertain behavior of kidney Obstructive sleep apnea syndrome Osteoarthritis of knee Osteoporosis Peripheral venous insufficiency Polyneuropathy due to type 2 diabetes mellitus ([facility]) Preoperative evaluation to rule out surgical contraindication Pulmonary function studies abnormal Pure hypercholesterolemia Renal mass Skin sensation disturbance Type 2 diabetes mellitus without complication ([facility]) Umbilical hernia Uric acid nephrolithiasis NSTEMI (non-ST elevated myocardial infarction) ([facility]) Acute exacerbation of CHF (congestive heart failure) ([facility]) COVID-19 Acquired spondylolisthesis Acute on chronic diastolic heart failure ([facility]) Coronary artery disease (CAD) excluded Diastolic dysfunction [...] type 2 diabetes mellitus (CMS/HCC) Pericardial effusion CAD in unga artery Coronary artery disease Coronary artery disease involving unga coronary artery of unga heart with other form of angina pectoris (CMS/HCC) Chronic systolic heart failure (CMS/HCC) Combined forms of age-related cataract of both eyes History of lumbar fusion Nonexudative age-related macular degeneration Thyroid disease Family History Problem Relation Name Age of Onset ROD disease Mother Heart attack Father Social History Tobacco Use Smoking status: Never Smokeless tobacco: Never Substance Use Topics Alcohol use: Not Currently HPI Laura is seen in follow-up. She is a 73-year-old woman with prior history of coronary artery [...] Impella assist. She did well with that. Follow-up echocardiogram October 2023 showed improvement in ejection fraction to 40 to 45%. Zetia was added due to LDL not being at target. She reports that she has been doing reasonably well. She denies active chest pain and she uses a walker to assist with ambulation and has no shortness of breath at the current level of activity. NYHA class I. She reports that she has been having worsening leg swelling. Her blood pressure has been controlled at cardiac rehab. Her blood pressure is mildly elevated today. Review of Systems Cardiovascular: Positive for leg swelling ( worsening ). Objective Visit Vitals BP 150/78 (BP Location: Left arm, Patient Position: Sitting) Pulse 62 Ht 1.575 m (5' 2 ) Wt 107 kg (235 lb) SpO2 96% BMI 42.98 kg/m??? OB Status Postmenopausal Smoking Status Never BSA 2.16 m??? Physical Exam Constitutional: Appearance: She is well-developed. She is obese. She is not ill-appearing. HENT: Head: Normocephalic and atraumatic. Nose: Nose normal. Eyes: General: No scleral icterus. Pupils: Pupils are equal, round, and reactive to light. Neck: Th (more content not included)... [facility] 01-08-2024 Evaluation note Type assessment Both eyes affected b y mild nonproliferative diabetic retinopathy with macular edema, associated with type 2 diabetes mellitus impression Both eyes affected b y mild nonproliferative diabetic retinopathy with macular edema, associated with type 2 diabetes mellitus: E11.3213. Bilateral [facility] Work Phone: [phone]) 707-166608-01-2024 History of Present illness Narrative* Encounter Date [...] did not change her last glasses RX. [facility] Work Phone: 1(170) 637-768808-01-2024 Instructions* Date Instruction Additional Infor mation Impression/Plan Related to Both eyes affected by [...] 2 diabetes mellitus [facility] Work Phone: [phone] Note[place] Cardiology - [facility] Subjective Laura Lawson is a [...] essential hypertension Cerebrovascular disease Chronic foot ulcer ([facility]/HCC) Coronary atherosclerosis Decreased estrogen level Diabetic retinopathy associated with type 2 diabetes mellitus ([facility]/HCC) Diaphragmatic hernia Difficulty walking Dyspnea on exertion Generalized osteoarthritis Gout History of arthritis History of hysterectomy Hyperglycemia due to type 2 diabetes mellitus ([facility]/HCC) FCI current use of insulin ([facility]) Low back pain Morbid obesity ([facility]) Neoplasm of uncertain behavior of kidney Obstructive sleep apnea syndrome Osteoarthritis of knee Osteoporosis Peripheral venous insufficiency Polyneuropathy due to type 2 diabetes mellitus ([facility]/HCC) Preoperative evaluation to rule out surgical contraindication Pulmonary function studies abnormal Pure hypercholesterolemia Renal mass Skin sensation disturbance Type 2 diabetes mellitus without complication ([facility]) Umbilical hernia Uric acid nephrolithiasis NSTEMI (non-ST elevated myocardial infarction) ([facility]) Acute exacerbation of CHF (congestive heart failure) ([facility]) COVID-19 Acquired spondylolisthesis Acute on chronic diastolic heart failure ([facility]) Coronary artery disease (CAD) excluded Diastolic dysfunction GERD (gastroesophageal reflux disease) History of carpal tunnel surgery of right wrist Hyperlipidemia Impaired mobility and endurance Localized edema Lumbar radiculopathy Morbid obesity with body mass index (BMI) of 45.0 to 49.9 in adult ([facility]) Paresthesia of skin Primary osteoarthritis of both knees S/P drug eluting coronary stent placement Ulcer of foot due to type 2 diabetes mellitus (CMS/HCC) Pericardial effusion CAD in unga artery Coronary artery disease Coronary artery disease involving unga coronary artery of unga heart with other form of angina pectoris (CMS/HCC) Chronic systolic heart failure (CMS/HCC) Combined forms of age-related cataract of both eyes History of lumbar fusion Nonexudative age-related macular degeneration Thyroid disease Family History Problem Relation Name Age of Onset ROD disease Mother Heart attack Father Social History [...] She is not ill-appearing. (more content not included)...[facility]05-07-2024 Note Cardiovascular Medicine [facility] SUBJECTIVE Chief Complaint Patient presents with [...] essential hypertension Cerebrovascular disease Chronic foot ulcer ([facility]/HCC) Coronary atherosclerosis Decreased estrogen level Diabetic retinopathy associated with type 2 diabetes mellitus ([facility]) Diaphragmatic hernia Difficulty walking Dyspnea on exertion Generalized osteoarthritis Gout History of arthritis History of hysterectomy Hyperglycemia due to type 2 diabetes mellitus ([facility]) 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 ([facility]) Low back pain Morbid obesity ([facility]) Neoplasm of uncertain behavior of kidney Obstructive sleep apnea syndrome Osteoarthritis of knee Osteoporosis Peripheral venous insufficiency Polyneuropathy due to type 2 diabetes mellitus ([facility]) Preoperative evaluation to rule out surgical contraindication Pulmonary function studies abnormal Pure hypercholesterolemia Renal mass Skin sensation disturbance Type 2 diabetes mellitus without complication ([facility]) Umbilical hernia Uric acid nephrolithiasis NSTEMI (non-ST elevated myocardial infarction) ([facility]) Acute exacerbation of CHF (congestive heart failure) ([facility]) COVID-19 Acquired spondylolisthesis Acute on chronic diastolic heart failure ([facility]) Coronary artery disease (CAD) excluded Diastolic dysfunction GERD (gastroesophageal reflux disease) History of carpal tunnel surgery of right wrist Hyperlipidemia Impaired mobility and endurance Localized edema Lumbar radiculopathy Morbid obesity with body mass index (BMI) of 45.0 to 49.9 in adult ([facility]) Paresthesia of skin Primary osteoarthritis of both knees S/P drug eluting coronary stent placement Ulcer of foot due to type 2 diabetes mellitus (CMS/HCC) Pericardial effusion CAD in unga artery Coronary artery disease Coronary artery disease involving unga coronary artery of unga heart with other form of angina pectoris (CMS/HCC) Chronic systolic heart failure (CMS/HCC) Past Medical History: Diagnosis Date Abnormal ECG CHF (congestive heart failure) (CMS/HCC) Coronary artery disease Diabetes mellitus (CMS/HCC) Gout Hypertension Myocardial infarction (CMS/HCC) Sleep apnea Family History Problem Relation Name Age of Onset ROD disease Mother Heart attack Father Social History [...] 0.3 mg sublingual tablet, (more content not included)...[facility] 10-14-2023 NotePatient here for follow up PCI with Dr. Zendejas on 10/08/2023. Says she's doing very well. Denies chest pain, SOB, and lightheadedness/syncope. Review of Systems Cardiovascular: Positive for leg swelling. Respiratory: Positive for cough. Musculoskeletal: Positive for muscle weakness. All other systems reviewed and are negative.[facility] 10-09-2023 Note10/09/23 1032 Admission Assessment Questions Verify [...] Discharge? Yes Does the patient have a outsole caser assigned to them through their insurance? No [...] able to send link and activate MyChart? YesUnAdena [facility]05-01-2024 NotePatient: Laura Lawson Procedure Information Date/Time: 10/08/23 0830 Procedures: Percutaneous coronary intervention - with Impella Impella insertion Atherectomy - coronary Location: [facility] / [facility] (Cath) Providers: Julito Zendejas [...] products. Plan discussed with attending. Additional Equipment RequestsPrem[facility]04-19-2024 Note hydral [place] [facility] - [facility] Subjective Laura Lawson is a 72 y.o. year old female patient being seen for Follow-up (Follow up - heart cath ) Patient Active Problem List Diagnosis Allergic rhinitis Angiomyolipoma of kidney Benign essential hypertension Cerebrovascular disease Chronic foot ulcer ([facility]/HCC) Coronary atherosclerosis Decreased estrogen level Diabetic retinopathy associated with type 2 diabetes mellitus ([facility]) Diaphragmatic hernia Difficulty walking Dyspnea on exertion Generalized osteoarthritis Gout History of arthritis History of hysterectomy Hyperglycemia due to type 2 diabetes mellitus ([facility]) FCI current use of insulin ([facility]) Low back pain Morbid obesity ([facility]) Neoplasm of uncertain behavior of kidney Obstructive sleep apnea syndrome Osteoarthritis of knee Osteoporosis Peripheral venous insufficiency Polyneuropathy due to type 2 diabetes mellitus ([facility]) Preoperative evaluation to rule out surgical contraindication Pulmonary function studies abnormal Pure hypercholesterolemia Renal mass Skin sensation disturbance Type 2 diabetes mellitus without complication ([facility]) Umbilical hernia Uric acid nephrolithiasis NSTEMI (non-ST elevated myocardial infarction) ([facility]) Acute exacerbation of CHF (congestive heart failure) ([facility]) COVID-19 Acquired spondylolisthesis Acute on chronic diastolic heart failure ([facility]) Coronary artery disease (CAD) excluded Diastolic dysfunction GERD (gastroesophageal reflux disease) History of carpal tunnel surgery of right wrist Hyperlipidemia Impaired mobility and endurance Localized edema Lumbar radiculopathy Morbid obesity with body mass index (BMI) of 45.0 to 49.9 in adult ([facility]) Paresthesia of skin Primary osteoarthritis of both knees S/P drug eluting coronary stent placement Ulcer of foot due to type 2 diabetes mellitus (CMS/HCC) Pericardial effusion Acute systolic heart failure (CMS/HCC) CAD in unga artery Family History Problem Relation Name Age of Onset ROD disease Mother Heart attack Father Social History [...] She is alert and (more content not included)...[facility]04-03-2024 NoteHospital Medicine Discharge Summary Final Discharge Diagnosis: Acute systolic heart failure (CMS/HCC) CAD Essential hypertension NIDDM2 Hyperlipidemia Morbid obesity Admission Diagnosis: Acute systolic heart failure (CMS/HCC) [I50.21] CAD in unga artery [I25.10] Hospital course: Laura Lawson is an 72 y.o. female admitted from lab tester s/p left heart cath for evaluation for [...] placement with impella, however, due to one lab tester being down, they are going to reschedule for next week and she can go home in the meantime. Dear Dr. Arsenio MD, Laura is advised to follow up with you within 1-2 weeks. Follow-up with: Cardiology Scheduled appointments: Future Appointments Date Time Provider Department Center 09/26/2023 3:30 PM Julito Zendejas MD [facility] Your medication list START taking these [...] Medications These medications were sent to [facility] - [place], [place] - [address] [place] [address] [place] [address], [facility] [id number] clopidogrel 75 mg tablet spironolactone 25 mg [...] wheezes, rales or rhonch (more content not included)...[facility]04-03-2024 Note09/10/23 1111 Referral Data 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 NEURO: No (more content not included)...[facility] 09-10-2023 NoteClinical Nutrition Assessment Name: Laura Lawson Date: 1950 Date of Visit: 09/10/23 Reason for assessment: high risk Information obtained from: patient, medical record, and nursing Medical History No chief complaint on file. Past Medical History: Diagnosis Date Abnormal ECG CHF (congestive heart failure) ([facility]) Coronary artery disease Diabetes mellitus (CMS/HCC) Gout [...] per cardiology Diuretics daily, refused torsemide per AUG. On Potassium chloride supplements. Results from last [...] Has had previous ed's (more content not included)...[facility]04-03-2024 NoteThe patient is Moderately Stable - Low risk of patient condition declining or worsening The patient's goals for the shift include get procedure done The clinical goals for the shift include [facility] Note09/09/23 1509 Admission Assessment Questions Verify [...] Discharge? Yes Does the patient have a outsole caser assigned to them through their insurance? No Living Arrangement (Current/Prior to Hospitalization) Private residence;Home self care (lives w/friend. One story home w/4 entry stairs) Does the patient have history of HHC or SNF? Yes (HHC after back surgery - doesn't recall company) Assistive Device Grab bars;Other (Comment) (rollator, bipap machine ([email or web address] shower chair) Patient's goal for discharge [...] able to send link and activate MyChart? NoUnAdena Regional Medical Center04-02-2024 NoteHospital Medicine History and Physical 09/09/2023 12:19 PM THE HOSPITALIST TEAM PREFERS TO USE [employer] CHAT FOR COMMUNICATION 7AM-7PM. IF I DO NOT RESPOND WITHIN 15 MINUTES, PLEASE PAGE ME/CALL THROUGH THE REGIONAL ADMINISTRATIVE ASSISTANT. FROM 7PM-7AM, PLEASE PAGE [phone](COVR) Chief Complaint No chief complaint on file. History of Present Illness Laura Lawson is an 72 y.o. female admitted from lab tester s/p left heart cath for evaluation for [...] Problem List Diagnosis Date Noted CAD in unga artery 09/09/2023 Pericardial effusion 08/05/2023 History of carpal tunnel surgery of right wrist 07/31/2023 Impaired mobility and endurance 07/31/2023 Morbid obesity with body mass index (BMI) of 45.0 to 49.9 in adult ([facility]) 07/31/2023 Acute on chronic diastolic heart failure ([facility]) 07/21/2023 Acute exacerbation of CHF (congestive heart failure) ([facility]) 07/03/2023 COVID-19 07/03/2023 NSTEMI (non-ST elevated myocardial infarction) ([facility]) 07/02/2023 Acquired spondylolisthesis 01/13/2023 Diastolic dysfunction 01/13/2023 Lumbar radiculopathy 01/13/2023 Paresthesia of skin 01/13/2023 Primary osteoarthritis of both knees 01/13/2023 S/P drug eluting coronary stent placement 01/13/2023 Localized edema 10/28/2022 Coronary artery disease (CAD) excluded 10/15/2022 GERD (gastroesophageal reflux disease) 10/15/2022 Hyperlipidemia 10/15/2022 Difficulty walking 04/24/2021 Pure hypercholesterolemia 09/20/2020 Osteoporosis 03/08/2020 Peripheral venous insufficiency 01/10/2020 Polyneuropathy due to type 2 diabetes mellitus ([facility]) 01/10/2020 Chronic foot ulcer ([facility]) 11/25/2019 Ulcer of foot due to type 2 diabetes mellitus ([facility]) 11/25/2019 Skin sensation disturbance 11/05/2019 Decreased estrogen level 07/28/2019 Diabetic retinopathy associated with type 2 diabetes mellitus ([facility]) 10/30/2018 Dyspnea on exertion 08/04/2018 Osteoarthritis of knee 12/29/2017 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 Umbilical hernia 07/15/2017 Renal mass 05/28/2017 Generalized 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/17/2016 Cerebrovascular disease 02/01/2016 Allergic rhinitis 07/12/2015 History of hysterectomy 07/12/2015 Hyperglycemia due to type 2 diabetes mellitus ([facility]) 07/12/2015 FCI current use of insulin ([facility]) 07/12/2015 Uric acid nephrolithiasis 07/12/2015 Pulmonary function studies abnormal 11/02/2013 Preoperative (more content not included)...[facility] 09-09-2023 NotePatient: Laura Lawson Procedure Information Date/Time: 09/09/23929 Procedure: Coronary angiography (Left) Location: [facility] / [facility] (Cath) Providers: Julito Zendejas MD Clinical information reviewed: Allergies Meds OB Status Physical Exam Airway Mallampati: IV TM distance: <3 FB Neck ROM: full Cardiovascular Dental Pulmonary Abdominal Anesthesia Plan ASA 3 other (Subconscious sedation. ) Additional Equipment RequestsUnAdena Regional Medical Center03-28-2024 Miscellaneous Notes* Telephone Encounter - Trista Castaneda - 09/04/2023 2:53 PM EDT First Attempt Made from [employer]- NO VOICEMAIL [...] with Dr. العلي on 12/15/23 11:00 at [place] office. She wanted to wait some months out due to Dr. Uribe saying it wasn't urgent for her to come in soon for the carpel tunnel. documented in this encounterPremier [facility]03-28-2024 Telephone encounter Note* Telephone Encounter - Trista Castaneda - 09/04/2023 2:53 PM EDT First Attempt Made from [employer]- NO VOICEMAIL [...] INSURANCE INFORMATION TO THEIR NEW PATIENT APPOINTMENT [facility]-28-[facility]24 Telephone encounter Note* Telephone Encounter - Kasandra Weaver - 09/04/2023 2:53 PM EDT Received call today 09/05/23 3:10 from patient in regard to previous message and she scheduled for new patient appt with Dr. العلي on 12/15/23 11:00 at [facility]. She wanted to wait some months out due to Dr. Uribe saying it wasn't urgent for her to come in soon for the carpel tunnel. [facility] HospitalReelSurfer [id number] History of Present illness Narrative* Robbi Uribe [...] has since followed up with Cardiology at [facility]. Patient is present with friend today. [...] occlusions or narrowing, cardiology should consider a middle or intermediate school principal heart monitor such as a LOOP recorder. Followup with general neurology for h/o carpel tunnel and possible diabetic neuropathy. Will call patient in 6 months, if patient is doing well, no followup needed. Call for any questions/concerns. documented in this encounterSouthwestern Vermont Medical CenterTempeest03-12-2024 Instructions* Patient Instructions* Robbi Uribe MD - 08/19/2023 11:30 AM EDT Continue ASA daily Continue cholesterol medication Continue diabetic medication Continue BP medication Followup with cardiology as scheduled. Will clear patient for heart cath procedures and stents if needed. If heart cath shows no significant occlusions or narrowing, cardiology should consider a middle or intermediate school principal heart monitor such as a LOOP recorder. Followup with general neurology for h/o carpel tunnel and possible diabetic neuropathy. Will call patient in 6 months, if patient is doing well, no followup needed. Call for any questions/concerns. documented in this encounterGlenbeigh HospitalCredible [facility] Of [id number] NotePatient here for follow up echo. She has an apt with neurology 08/18. She brought in her new BP cuff for comparison and it read 147/57 L sitting. Still denies chest pain, SOB, palpitations, and lightheadedness/syncope. Review of Systems Cardiovascular: Positive for leg swelling (improving). Musculoskeletal: Positive for muscle weakness. Neurological: Positive for weakness. All other systems reviewed and are negative.[facility] 07-31-2023 NoteCardiovascular Medicine [facility] SUBJECTIVE Chief Complaint Patient presents with Congestive Heart Failure Hypertension Laura Lawson is a 72 y.o. female here for hospital follow-up. HPI PMHx: resistant HTN, HFpEF, DM II, KJ She was recently admitted to [facility] for acute on chronic HFpEF, hypertensive [...] essential hypertension Cerebrovascular disease Chronic foot ulcer ([facility]) Coronary atherosclerosis Decreased estrogen level Diabetic retinopathy associated with type 2 diabetes mellitus ([facility]) Diaphragmatic hernia Difficulty walking Dyspnea on exertion Generalized osteoarthritis Gout History of arthritis History of hysterectomy Hyperglycemia due to type 2 diabetes mellitus ([facility]) 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 ([facility]) Low back pain Morbid obesity ([facility]) Neoplasm of uncertain behavior of kidney Obstructive sleep apnea syndrome Osteoarthritis of knee Osteoporosis Peripheral venous insufficiency Polyneuropathy due to type 2 diabetes mellitus ([facility]) Preoperative evaluation to rule out surgical contraindication Pulmonary function studies abnormal Pure hypercholesterolemia Renal mass Skin sensation disturbance Type 2 diabetes mellitus without complication ([facility]) Umbilical hernia Uric acid nephrolithiasis NSTEMI (non-ST elevated myocardial infarction) [facility] [facility]) Acute exacerbation of CHF (congestive heart failure) ([facility]) COVID-19 Acquired spondylolisthesis Acute on chronic diastolic heart failure ([facility]) Coronary artery disease (CAD) excluded Diastolic dysfunction GERD (gastroesophageal reflux disease) History of carpal tunnel surgery of right wrist Hyperlipidemia Impaired mobility and endurance Localized edema Lumbar radiculopathy Morbid obesity with body mass index (BMI) of 45.0 to 49.9 in adult ([facility]) Paresthesia of skin Primary osteoarthritis of both knees S/P drug eluting coronary stent placement Ulcer of foot due to type 2 diabetes mellitus ([facility]) Pericardial effusion Past Medical History: Diagnosis Date Abnormal ECG CHF (congestive heart failure) ([facility]) Coronary artery disease Diabetes mellitus ([facility]) Gout Hypertension Myocardial infarction ([facility]) Sleep apnea Family History Problem Relation Name Age of Onset ROD disease Mother Heart attack Father Social History [...] 15 mg by mout (more content not included)...[facility]02-12-2024 History of Present illness Narrative* Vlad Cesar MD - 07/21/2023 10:30 AM EST Subjective Patient ID: Laura Lawson is a 72 y.o. female who presents for Follow-up (Admitted to [facility] 07/02/23 dx: Covid,CHF exac., NSTEMI discharged home 07/07/23 started on farxiga, coreg stopped labetolol pt had follow up appt with cardiology 07/16/23). Flowsheet Row Patient Outreach from 07/09/2023 in [facility] 20:20 Mobile with Soledad Guerrero RN Discharge Information ED or Hospital Discharge? Hospital Patient has been contacted within two business days of discharge Yes Discharge Date 07/07/23 Discharge Hospital [facility] [D/C Acute on Chronic heart Failure, [...] Comments labs, ecg, CXR. Pt transferred from [facility] to [facility], tested positive for covid, negative for covid x2 at [facility]. Pt to follow with Cardiology, appt on 07/16 at 2:20pm. Neurology 08/19/23 [facility] in [place]. Pt reports no shortness of breath. Using [...] 2013 Disease:Diabetes mellitus, type 2 HERNIA REPAIR [place] [facility] ANT INTERBODY MIN DSC LUMBAR 03/18/2022 [...] noted above. 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 documented in this encounterSoutheast Missouri [id number] NoteCardiovascular Medicine [facility] SUBJECTIVE Chief Complaint Patient presents with [...] Admission Diagnosis: NSTEMI (non-ST elevated myocardial infarction) ([facility]) [I21.4] HPI and Hospital course: Laura Lawson is an 72 y.o. female who came from [facility] with N-STEMI, acute CHF exacerbation, and covid positive. Patient has past medical history of CAD with 4 stents placed. Plavix stopped in August 2022. patient had elevated BNP and troponin. glucose 391. Patient endorses chronic SOB but reports worsening prior to arrival to [facility]. Denies cough. No heparin drip. patient was given Lasix 40 mg IV [facility]. Patient tested positive today for covid-19. Her [...] an inpatient. #COVID ? - positive at [facility] but negative x 2 at [facility] - Remdesivir was discontinued - on room air #DMII insulin dependent - uncontrolled, HgbA1C 10.8 - patient was advised to have close follow-up with her PCP for further adjustment of her insulin regimen. Patient Active Problem List Diagnosis Allergic rhinitis Angiomyolipoma of kidney Benign essential hypertension Cerebrovascular disease Chronic foot ulcer ([facility]) Coronary atherosclerosis Decreased estrogen level Diabetic retinopathy associated with type 2 diabetes mellitus ([facility]) Diaphragmatic hernia Difficulty walking Dyspnea on exertion Generalized osteoarthritis Gout History of arthritis History of hysterectomy Hyperglycemia due to type 2 diabetes mellitus ([facility]) FCI current use of insulin ([facility]) Low back pain Morbid obesity ([facility]) Neoplasm of uncertain behavior of kidney Obstructive sleep apnea syndrome Osteoarthritis of knee Osteoporosis Peripheral venous insufficiency Polyneuropathy due to type 2 diabetes mellitus ([facility]) Preoperative evaluation to rule out surgical contraindication Pulmonary function studies abnormal Pure hypercholesterolemia Renal mass Skin sensation disturbance Type 2 diabetes mellitus without complication ([facility]) Umbilical hernia Uric acid nephrolithiasis NSTEMI (non-ST elevated myocardial infarction) ([facility]) Acute exacerbation of CHF (congestive heart failure) ([facility]) COVID-19 Past Medical History: Diagnosis Date Abnormal ECG CHF (more content not included)...[facility]02-07-2024 NotePatient here for follow up [facility] for CHF and NSTEMI. She was discharged [...] weakness. All other systems reviewed and are negative.[facility] 07-08-2023 Miscellaneous Notes* Telephone Encounter - Tasha Girard RN - 07/08/2023 4:03 PM EST This patient needs outpatient follow up in the [facility] in 4-6 weeks ([place] hosp follow up),also she needs 30-day event monitor. (Being done through [place]) * Telephone Encounter - Kasandra Henriquez - 07/08/2023 4:03 PM EST Called patient and vm is not set up. No answer Spoke with Latrice, patients roommate and transportation, and scheduled appt [facility] Telephone encounter Note* Telephone Encounter - Tasha Girard RN - 07/08/2023 4:03 PM EST This patient needs outpatient follow up in the [facility] in 4-6 weeks ([place] hosp follow up),also she needs 30-day event monitor. (Being done through [place]) [facility] Gullivearth [id number] Telephone encounter Note* Telephone Encounter - Kasandra Henriquez - 07/08/2023 4:03 PM EST Called patient and vm is not set up. No answer Spoke with Latrice, patients roommate and transportation, and scheduled appt [facility]01-29-2024 NoteHospital Medicine Discharge Summary Final Discharge Diagnosis: [...] Admission Diagnosis: NSTEMI (non-ST elevated myocardial infarction) (CMS/HCC) [I21.4] HPI and Hospital course: Laura Lawson is an 72 y.o. female who came from [facility] with N-STEMI, acute CHF exacerbation, and covid positive. Patient has past medical history of CAD with 4 stents placed. Plavix stopped in August 2022. patient had elevated BNP and troponin. glucose 391. Patient endorses chronic SOB but reports worsening prior to arrival to [facility]. Denies cough. No heparin drip. patient was given Lasix 40 mg IV while [facility]. Patient tested positive today for covid-19. Her [...] an inpatient. #COVID ? - positive at [facility] but negative x 2 at [facility] - Remdesivir was discontinued - on room air #DMII insulin dependent - uncontrolled, HgbA1C 10.8 - patient was advised to have close follow-up with her PCP for further adjustment of her insulin regimen. Dear Dr. Arsenio MD, Barry is advised to follow up with you within 1-2 weeks. Follow-up with: Cardiology and Neurology Scheduled appointments: Future Appointments Date Time Provider Department Center 07/10/2023 3:00 PM HOLLEY Zamora [facility] [place] [facility] Your medication list START taking these [...] Your Medications These medications were sent to [facility]/pharmacy #[id number] [place] [address] carvedilol 6.25 mg tablet dapagliflozin propanediol 10 mg miconazole 2 % vaginal cream Laura has No Known Allergies. Dispositi (more content not included)...[facility] 07-07-2023 Note Attestation signed by Devon [...] Clinical Asst. Professor Department of Neurology-Stroke Contact: ([facility]) Disclaimer: Portions of the record/note may have been created with voice recognition software. Occasional wrong-word or '[id number]' substitutions may have occurred due to the [...] concerns please c (more content not included)... [facility]01-28-2024 NoteHospital Medicine Daily Progress Note - 07/06/2023 11:13 AM; Room: [address] [place] [address] Admission: 07/02/2023 11:39 PM; Length of stay: 4 days THE HOSPITALIST TEAM PREFERS TO USE [employer] CHAT FOR COMMUNICATION 7AM-7PM. IF I DO NOT RESPOND WITHIN 15 MINUTES, PLEASE PAGE ME/CALL THROUGH THE REGIONAL ADMINISTRATIVE ASSISTANT. FROM 7PM-7AM, PLEASE PAGE [phone](COVR) Code Status: Full Code Barriers to Discharge: [...] Principal Problem: NSTEMI (non-ST elevated myocardial infarction) ([facility]) Active Problems: Benign essential hypertension Coronary atherosclerosis Dyspnea on exertion Hyperglycemia due to type 2 diabetes mellitus ([facility]/HCC) Morbid obesity ([facility]) Obstructive sleep apnea syndrome Peripheral venous insufficiency Acute exacerbation of CHF (congestive heart failure) ([facility]) COVID-19 Assessment and Plan #Acute on chronic [...] echo results #COVID ? - positive at [facility] but negative x 2 at [facility] - will DC remdisivir - on [...] LDL 108 07/03/2023 No results found for: [id number] , IRON , TIBC , C3 , C4 , JEREMIAH , CANCA , ASO , PSA , CEA , CA125 , CA199 , AFP , CA153 Imaging MR brain wo contrast Narrative: 0MR BRAIN WO CONTRAST 07/04/2023 10:21 PM CLINICAL INDICATIONS: Stroke, focal neurological deficit PROTOCOL: Multiplanar multisequence MRI (more content not included)...[facility]01-28-2024 Note Attestation signed by Elliott Clements MD at 07/07/2023 7:47 PM Above reviewed. I concur with Fellow. Stroke team reviewed MRI of the brain showing small punctate infract in the right cerebellar hemisphere. Etiology is not identified yet pending echocardiogram. For the time being continue Aspirin, Lipitor 80. Stroke team will give final recs once echo is completed. 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 ENRIQUE CARPENTER MD Neurointervantional Fellow.[facility]01-28-2024 Note Subjective F/U NSTEMI, COVID +, acute [...] Principal Problem: NSTEMI (non-ST elevated myocardial infarction) ([facility]) Active Problems: Benign essential hypertension Coronary atherosclerosis Dyspnea on exertion Hyperglycemia due to type 2 diabetes mellitus ([facility]) Morbid obesity ([facility]) Obstructive sleep apnea syndrome Peripheral venous insufficiency Acute exacerbation of CHF (congestive heart failure) ([facility]) COVID-19 NSTEMI, Likely type II in setting [...] perspective, please call for any concerns Dulce Pizano PLATFORM ENGINEER Division of Cardiology, [facility]- [phone] Pager- [phone] Email- [email or web address] NoteSpeech Language Pathology Speech Language Pathology Evaluation Patient Name: Laura Lawson : 1950 Today's Date: 07/05/2023 Date of Evaluation: 07/05/2023 General Subjective: Laura Lawson is an 72 y.o. female who came from [facility] with N-STEMI, acute CHF exacerbation, and [...] Hyperglycemia due to type 2 diabetes mellitus ([facility]/HCC) FCI current use of insulin ([facility]/H[facility]) Low back pain Morbid obesity ([facility]) Neoplasm of uncertain behavior of kidney Obstructive sleep apnea syndrome Osteoarthritis of knee Osteoporosis Peripheral venous insufficiency Polyneuropathy due to type 2 diabetes mellitus ([facility]) Preoperative evaluation to rule out surgical contraindication Pulmonary function studies abnormal Pure hypercholesterolemia Renal mass Skin sensation disturbance Type 2 diabetes mellitus without complication ([facility]) Umbilical hernia Uric acid nephrolithiasis NSTEMI (non-ST elevated myocardial infarction) ([facility]/H[facility]) Acute exacerbation of CHF (congestive heart failure) ([facility]) COVID-19 Past Medical History: Diagnosis Date Coronary artery disease Diabetes mellitus ([facility]) Gout Hypertension Sleep apnea Past Surgical History: Procedure Laterality Date BACK SURGERY CARDIAC CATHETERIZATION CARPAL TUNNEL RELEASE HYSTERECTOMY THYROID SURGERY General Visit Info General Subjective: Laura Lawson is an 72 y.o. female who came from [facility] with N-STEMI, acute CHF exacerbation, and [...] Primary Mode of Expression: Verbal Primary Language: Hungarian Repetition: Intact Sentence Completion: Intact Open Ended Questions: Intact Conversation: Intact Higher Level Cognitive Functions Higher Level Cognitive Functions Attention: Within Functional Limits Memory: Unable to assess (Unable to assess, due to pt hearing status.) Problem Solving: Within Functional Limits Insight: Within function limits Impulsive: Within functional limits Processing Speed: Within funtional limits Perseveration: Not present Assessment/Plan MICROSTRATEGY ARCHITECT Assessment Medical Staff Made Aware: Yes Plan MICROSTRATEGY ARCHITECT - OK to Discharge: Yes Written/Dictated by Gertrudis Marshall CCC-MICROSTRATEGY ARCHITECT at 1:15 PMPremier Health [facility] Hospital01-27-2024 NoteHojordan [facility] Daily Progress Note - 07/05/2023 12:18 PM; Room: [address] [place] [address] Admission: 07/02/2023 11:39 PM; Length of stay: 3 days THE HOSPITALIST TEAM PREFERS TO USE [employer] CHAT FOR COMMUNICATION 7AM-7PM. IF I DO NOT RESPOND WITHIN 15 MINUTES, PLEASE PAGE ME/CALL THROUGH THE REGIONAL ADMINISTRATIVE ASSISTANT. FROM 7PM-7AM, PLEASE PAGE [phone](COVR) Code Status: Full Code Barriers to Discharge: [...] Principal Problem: NSTEMI (non-ST elevated myocardial infarction) ([facility]) Active Problems: Benign essential hypertension Coronary atherosclerosis Dyspnea on exertion Hyperglycemia due to type 2 diabetes mellitus ([facility]) Morbid obesity ([facility]) Obstructive sleep apnea syndrome Peripheral venous insufficiency Acute exacerbation of CHF (congestive heart failure) ([facility]) COVID-19 Assessment and Plan #Acute on chronic [...] stroke team. #COVID ? - positive at [facility] but negative x 2 at [facility] - will DC remdisivir - on [...] LDL 108 07/03/2023 No results found for: [id number] , IRON , TIBC , C3 , [...] 10). Subtle T2 FLAIR (more content not included)...[facility]01-27-2024 NotePhysical Therapy Physical Therapy Evaluation Patient Name: [...] acute heart failure exacerbation and COVID-positive at [facility]. Patient stated that she has not [...] essential hypertension Cerebrovascular disease Chronic foot ulcer ([facility]/HCC) Coronary atherosclerosis Decreased estrogen level Diabetic retinopathy associated with type 2 diabetes mellitus ([facility]) Diaphragmatic hernia Difficulty walking Dyspnea on exertion Generalized osteoarthritis Gout History of arthritis History of hysterectomy Hyperglycemia due to type 2 diabetes mellitus ([facility]/H[facility]) FCI current use of insulin ([facility]/HCC) Low back pain Morbid obesity ([facility]) Neoplasm of uncertain behavior of kidney Obstructive sleep apnea syndrome Osteoarthritis of knee Osteoporosis Peripheral venous insufficiency Polyneuropathy due to type 2 diabetes mellitus ([facility]) Preoperative evaluation to rule out surgical contraindication Pulmonary function studies abnormal Pure hypercholesterolemia Renal mass Skin sensation disturbance Type 2 diabetes mellitus without complication ([facility]CC) Umbilical hernia Uric acid nephrolithiasis NSTEMI (non-ST elevated myocardial infarction) ([facility]/HCC) Acute exacerbation of CHF (congestive heart failure) ([facility]) COVID-19 Past Medical History: Diagnosis Date Coronary artery disease Diabetes mellitus ([facility]) Gout Hypertension Sleep apnea Past Surgical History: [...] Level of Function Prior Function Level of [place]: Independent with ADLs and functional transfers, Independent [...] Level tile Device 1: (more content not included)...[facility] 07-04-2023 NoteSpeech Language Pathology Speech/Language Pathology Clinical Swallow Assessment Recommendations Regular diet with thin liquids Hips at 90 degrees for all PO intake MICROSTRATEGY ARCHITECT to follow for speech and language eval due to new onset aphasia this morning History of Present Illness 72 year old female admitted 07/02 as a transfer from [facility] after being found to have NSTEMI, acute [...] motor tasks may be due to pt [place]. Laryngeal Function Vocal Quality: Within Functional Limits [...] treatments: Follow up for speech and language evaluationPrem[facility] Health [facility]01-26-2024 NoteHospital Medicine Daily Progress Note - 07/04/2023 9:31 AM; Room: [facility]/3141- Admission: 07/02/2023 11:39 PM; Length of stay: 2 days THE HOSPITALIST TEAM PREFERS TO USE [employer] CHAT FOR COMMUNICATION 7AM-7PM. IF I DO NOT RESPOND WITHIN 15 MINUTES, PLEASE PAGE ME/CALL THROUGH THE REGIONAL ADMINISTRATIVE ASSISTANT. FROM 7PM-7AM, PLEASE PAGE [phone](COVR) Code Status: Full Code Barriers to Discharge: [...] Principal Problem: NSTEMI (non-ST elevated myocardial infarction) ([facility]) Active Problems: Benign essential hypertension Coronary atherosclerosis Dyspnea on exertion Hyperglycemia due to type 2 diabetes mellitus ([facility]) Morbid obesity ([facility]) Obstructive sleep apnea syndrome Peripheral venous insufficiency Acute exacerbation of CHF (congestive heart failure) ([facility]) COVID-19 Assessment and Plan NSTEMI, Likely type [...] on 07/04 COVID ? - positive at [facility] but negative x 2 at [facility] - will DC remdisivir - on room air DMII insulin dependent - uncontrolled, HgbA1C 10.8 - hypoglycemic this AM - reduce lantus dose Hypertension - cont home meds Hypokalemia - replace JK - home CPAP at bedside Hypomagnesia - [...] LDL 108 07/03/2023 No results found for: [id number] , IRON , TIBC , C3 , [...] on 07/03/2023 9:02:17 AM (more content not included)...[facility]01-25-2024 Note07/03/23 1229 Admission Assessment Questions Verify insurance [...] Discharge? Yes Does the patient have a outsole caser assigned to them through their insurance? No [...] able to send link and activate MyChart? NoUnAdena [facility]01-25-2024 NoteClinical Nutrition Assessment Name: Laura Lawson Date: [...] with questions and contact the dietitian via [employer] chat 8A-4P Friday-Friday. Or call the dietitian's office at extension [phone]. For weekends/holidays, the dietitian's can be reached by paging [phone] from 9A-3P. Unable to be reached via [employer] chat on Friday & holidays.)[facility]01-25-2024 NotePharmacy Dosing Service - Remdesivir Initial Consult [...] Thank you, Parish Fernandez, PharmD, MS, BCPS 07/03/2023UnAdena [facility] Center01-25-2024 NoteHospital Medicine History and Physical 07/03/2023 12:01 AM THE HOSPITALIST TEAM PREFERS TO USE [employer] FOR COMMUNICATION 7AM-7PM. IF I DO NOT RESPOND WITHIN 15 MINUTES, PLEASE PAGE ME/CALL THROUGH THE REGIONAL ADMINISTRATIVE ASSISTANT. FROM 7PM-7AM, PLEASE PAGE [phone](COVR) Chief Complaint Patient transfer/direct admit from [facility] to [facility] for NSTEMI, CHF Exacerbation, and COVID-19 + History of Present Illness Laura Lawson is an 72 y.o. female who came from [facility] with N-STEMI, acute CHF exacerbation, and covid positive. Patient has past medical history of CAD with 4 stents placed. Plavix stopped in August 2022. Troponin 180--> 179. BNP 19,000. Glucose 391Patient endorses chronic SOB but reports worsening prior to arrival to [facility]. Denies cough. No heparin drip. Was given Lasix 40 mg IV while [facility]. Patient tested positive today for covid-19. Her chest X-ray shows decreased lung volume w/ moderate elevation of left hemidiaphragm, compression atelectasis associated w/ the left hemidiaphragm. Patchy densitied w/in left perihilar region noted and are suggestive of atelectasis and or infiltrate. Peribronchial cuffing w/in both hilar regions observed and may be associated with bronchitis. Per [facility], patient SpO2 was good, just feels like she isn't getting enough air into her lungs . Chest X-ray showed cardiomegaly with vascular congestion and bilateral effusions. EKG sinus rhythm, first degree AV block, anterolateral myocardial infarction, probably recent. Possible right ventricular hypertrophy. Meds given in [facility]: nitroglycerin 0.4 mg SL X2, ASA [...] Date Noted NSTEMI (non-ST elevated myocardial infarction) ([facility]) 07/02/2023 Difficulty walking 04/24/2021 Pure hypercholesterolemia 09/20/2020 Osteoporosis 03/08/2020 Peripheral venous insufficiency 01/10/2020 Polyneuropathy due to type 2 diabetes mellitus ([facility]) 01/10/2020 Chronic foot ulcer ([facility]) 11/25/2019 Skin sensation disturbance 11/05/2019 Decreased estrogen level 07/28/2019 Diabetic retinopathy associated with type 2 diabetes mellitus ([facility]) 10/31/19 (more content not included)...[facility] 03-13-2023 Evaluation note* Encounter Date Diagnosis Assessment [...] of view she is done very well. [facility] Other 04-06-2023 Evaluation note* Encounter Date Diagnosis Assessment Notes [...] back in 6 months with another x-ray. [facility] Other 01-05-2023 Evaluation note* Encounter Date Diagnosis [...] Jun, Spondylolisthesis, lumbar region (ICD-10 - M43.16) [facility] Other 11-10-2022 Evaluation note* Encounter Date Diagnosis [...] Apr, Spondylolisthesis, lumbar region (ICD-10 - M43.16) [facility] Other 10-14-2022 Progress note Author Abner Roa [facility] March 22, 2022 6:34am Note Date/Time March 22, 2022 6 :34am [facility] [address] [place] [address] Neurosurgery Progress Note Signed Patient: Laura Lawson MR#: [id number] : 1950 Acct:[id number] Age/Sex: 71 / F Adm Date: 2 Loc: Room: 0N8781-9 Type: ADM IN Attending Dr: Abner Roa [...] Status: Acute Documented By: Abner Roa MD 03/22/2233 Signed By: <Electronically signed by MD Abner Roa> 03/22/2234 [facility] Work Phone: 1(640) 621-169210-13-2022 Progress note Author Abner Roa [facility] March 21, 2022 7:43am Note Date/Time March 21, 2022 7 :43am [facility] [address] [place] [address] Neurosurgery Progress Note Signed Patient: Laura Lawson MR#: [id number] : 1950 Acct:[id number] Age/Sex: 71 / F Adm Date: 2 Loc: 4 Room: [address] [place] [address] Type: ADM IN Attending Dr: Abner Roa [...] signed by MD Abner Roa> 03/21/[address] [facility] Work Phone: 1(278) 730-425810-12-2022 Progress note Author Abner Roa [facility] March 20, 2022 10:22am Note Date/Time March 20, 2022 1 0:22am [facility] [address] [place] [address] Neurosurgery Progress Note Signed Patient: Laura Lawson MR#: [id number] : 1950 Acct:[id number] Age/Sex: 71 / F Adm Date: 2 Loc: 4 Room: 1B8403-7 Type: ADM IN Attending Dr: Abner Roa [...] Glucose 245, POC Glucose Comment Will notify dr/furnishings conservator/Plan Assessment/Plan (1) Lumbar stenosis with neurogenic claudication: [...] <Electronically signed by MD Abner Roa> 03/20/221021 [facility] Work Phone: 1(821) 949-501810-11-2022 Progress note Author Abner Roa [facility] March 19, 2022 7:33am Note Date/Time March 19, 2022 7 :33am [facility] [address] [place] [address] Neurosurgery Progress Note Signed Patient: Laura Lawson MR#: [id number] : 1950 Acct:[id number] Age/Sex: 71 / F Adm Date: 2 Loc: 4N Room: 0B1293-7 Type: ADM IN Attending Dr: Abner Roa [...] early movement Documented By: Abner Roa MD 03/19/22730 Signed By: <Electronically signed by MD Abner Roa> 03/19/22732 [facility] Work Phone: [phone]) 179-666908-09-2022 Evaluation note* Encounter Date Diagnosis Assessment Notes [...] stenosis with neurogenic claudication (ICD-10 - M48.062) [facility] Other 07-01-2022 Evaluation note* Encounter Date Diagnosis [...] - G89.29) Continue with current treatment plan [facility] Other 06-30-2022 Evaluation note* Encounter Date Diagnosis [...] Asymptomatic age-related postmenopausal state (ICD-10 - Z78.0) [facility] Other 06-02-2022 Evaluation note* Encounter Date Diagnosis [...] - G89.29) Continue with current treatment plan [facility] Other 05-18-2022 Evaluation note* Encounter Date Diagnosis [...] - G89.29) Continue with current treatment plan [facility] Other 05-09-2022 Evaluation note* Encounter Date Diagnosis [...] greater trochanteric bursa injection in the future. [facility] Other 04-19-2022 Evaluation note* Encounter Date Diagnosis [...] negative findings were considered in medical decision-making. [facility] Other Consult note* Clinical Note Date No Information [facility] Work Phone: Discharge summary* Clinical Note Date No Information [facility] Work Phone: Evaluation noteNo InformationNort [employer] Other Evaluation noteNo assessment information available [facility] Work Phone: Evaluation note* Diagnosis Onset Date Resolution Status Lumbar stenosis with neurogenic claudication acute [facility] Work Phone: Evaluation note* Diagnosis Onset Date Resolution Status Lumbar stenosis with neurogenic claudication acute CAD (coronary artery disease) acute Diabetes mellitus, type 2 ac [place] Hyperlipidemia acute Hypertension acute Impaired mobility and endurance acute Lumbar stenosis with neurogenic claudication acute Morbid obesity with body mas s index (BMI) of 45.0 to 49.9 in adult acute Myocardial infarction acute Sleep apnea with use of noct urnal bilevel positive airway pressure (BPAP) acute [facility] Work Phone: Evaluation note* Diagnosis COVID- Primary NSTEMI (non-ST elevated myocardial infarction) ([facility]/HCC) Acute myocardial infarction, subendocardial infarction, episode of care unspecified Acute on chronic diastolic heart failure ([facility]/HCC) Acute on chronic diastolic heart failure Type 2 diabetes mellitus with hyperglycemia, with long-term current use of insulin ([facility]) 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) Morbid (severe) obesity due to excess calories (E66.01) Body mass index [BMI] 45.0-49.9, adult (Z68.42) 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 (CMS/HCC) documented in this encounter [facility] HealthcareEvaluation note* Diagnosis TIA (transient ischemic attack)- Primary Unspecified transient cerebral ischemia Bilateral carpal tunnel syndrome Carpal tunnel syndrome [facility] Onset Date Resolution Status History of lumbar fusion acu te Spondylolisthesis, lumbar region acute [facility] Work Phone: Evaluation note* Diagnosis Acute right-sided low back pain with right-sided sciatica- Primary Right lumbar radiculopathy Thoracic or lumbosacral neuritis or radiculitis, unspecified Muscle spasm Spasm of muscle documented in this encounter [facility] HealthcareHistory and physical note* Clinical Note Date No Information [facility] Work Phone: Hisxlet general Narrative - Reported* Type Description Date Medical History diabetes Medical History obstructive sleep apnea Surgical History total hysterectomy Surgical History hernia repair Surgical History neck mass removal [facility] Other Hisivqq general Narrative - Reported* Type Description Date Medical History diabetes Medical History obstructive sleep apnea Surgical History total hysterectomy Surgical History hernia repair Surgical History neck mass removal Hospitalization History See Above [facility] Other Hospital Discharge instructions Additional Instructions DISCHARGE [...] for back spasm 20 minutes every 1-2 hours[facility] Work Phone: InstructionsNot on filedocumented in this encounter [facility] filed[facility] in this encounter [facility]Not on filedocumented in this encounter [facility]* Clinical Note Date No Information [facility] Work Phone: Reason for referral (narrative)* Consultation (Routine) - Pending Review Specialty Diagnoses / Procedures Referred By Raul t Referred To Contact Neurology Diagnoses Bilateral carpal tunnel syndrome Robbi Uribe MD [address] [place] [address], [address] [place] [address] Casey العلي MD [address] [place] [address], [address] [place] [address] Referral ID Status Reason Start Date Expiration Date Visits Requested Visits Authorized [id number] Pending Review Specialty Services Required 08/19/2023 08/18/2024 1 1 [facility] Reason For Referral No Information [facility] Work Phone: Reason for visit NarrativeNeurosurgery Referral Update [facility] Other Summary Purpose Family History Relationship Condition Age at Onset Recorded Date/T [...] history o f Cardiovascular disease Advance Directives Advance Directive Response Recorded Date/ Time Advance Directives No December 11 10:57am Advance Directive Response Recorded Date/ Time Advance Directives No December 11 9:57am Directive Yes / No Effective Date File Name No Information Reason for Referral Specialty Diagnoses / Procedures Referred By Contac t Referred To Contact Diagnoses Right lumbar radiculopathy Procedures MR lumbar spine wo contrast Vlad Cesar MD [address] [facility] [address] [place] [address] Referral ID Status Reason Start Date Expiration Date V isits Requested Visits Authorized [id number] Pending Review 03/15/2024 09/11/2024 1 1 Reason leg strengthening, g ait training, balance Diagnosis 1 Spondylolisthesis, l umbar region (M43.16) Referral Organization [facility] Ne urosurgery Referring Provider First Name Abner Referring Provider Last Name Janina Referring Provider Specialty Neurologica l Surgery Referred Organization [facility] Referred Address ,[place], [place],[address] Referred Provider Specialty Physical The rapist Referral Priority Routine Reason Evaluate and Treat O utPatient PT in [place] for Gait Training and Leg Strengthening Diagnosis 1 Lumbar radiculopathy (M54.16) Referral Organization [facility] Ne urosurgery Referring Provider First Name Abner Referring Provider Last Name Janina Referring Provider Specialty Neurologica l Surgery Referred Organization [facility] Central Sched uling Referred Address [address] [place], [place],[address] Referred Provider Specialty Physical The rapist Referral Priority Routine Reason eval and treat Diagnosis 1 Lumbar radiculopathy (M54.16) Referral Organization [facility] Pain Managemen t Referring Provider First Name Devang Referring Provider Last Name Keri Referring Provider Specialty Pain Medici ne Referred Organization [facility] Last anthony Co Referred Provider Vlad Georges Referred Address [address] [facility],[address] [facility],[place], [place],[id number] Referred Provider Specialty Neurosurgery Referral Priority Routine [...] and content) DATE CREATED AUTHOR 08/19/2018 [facility] DATE CREATED AUTHOR AUTHOR'S ORGANIZ ATION 03/17/2020 [facility] DATE CREATED AUTHOR AUTHOR'S ORGANIZ ATION 11/19/2022 [facility] DATE CREATED AUTHOR AUTHOR'S ORGANIZ ATION 10/25/[address] [facility] DATE CREATED AUTHOR AUTHOR'S ORGANIZ ATION 12/16/2023 [facility] DATE CREATED AUTHOR AUTHOR'S ORGANIZ ATION 03/06/[address] [facility] DATE CREATED AUTHOR AUTHOR'S ORGANIZ ATION 03/12/2024 [facility] DATE CREATED AUTHOR AUTHOR'S ORGANIZ ATION 03/16/2024 [facility] dical Specialists EPIC REASON FOR VISIT (unrecogniz ed section and content) Reason Comments Follow-up Admitted to [facility] 06/10 09/30 dx: Covid,CHF exac., NSTEMI discharged home 07/07/23 started on farxiga, coreg stopped labetolol pt had follow up appt with cardiology 07/16/23 Reason Onset Date Comments NEW PATIENT REFERRAL 09/04/2023 Reason Comments Med Refill baclofen Care Teams (unrecognized sec tion and content) [...] Luong RN Other Provider Active Nanci Gardner , KENDALL Other Provider Active Meliton Schwartz MD Other Provider Active Fred Nash MD Other Provider Active Mirtha Serrano , CLEANING ASSOCIATE Other Provider Active Yesi Dickens , DO [...] MD Other Provider Active Latonia Ely , PLATFORM ENGINEER-C Other Provider Active Roman Rosales MD Other [...] MD Other Provider Active Fariha Flowers , RN Other Provider Active Team Status: Active Member Role Status Dates Vlad Cesar II MD Primary Care Provider Active Abner Roa MD Attending Provider Active Court Interpreter Relationship Specialty Start Date End Date Vlad Cesar MD [address] [place] [address] PCP - General Internal Medicine 10/21/22 Vlad Cesar MD [address] [place] [address] PCP - ACO Reach 10/31/22 Team Status: Inactive Member Role Status Dates Vlad Cesar II MD Primary Care Provider Active Start: October 23, 2023 End: October 23, 2023 Abner Roa MD Attending Provider Active Star t: October 23, 2023 End: October 23, 2023 Name Effective Dates (start - stop) Status Members No Information Court Interpreter Relationship Specialty Start Date End Date Vlad Cesar MD [address] [place] [address] PCP - General Internal Medicine 10/21/22 Vlad Cesar MD [address] [place] [address] PCP - ACO Reach 10/31/22 Court Interpreter Relationship Specialty Start Date End Date Vlad Cesar MD [address] [place] [address] PCP - General Internal Medicine 10/21/22 Vlad Cesar MD [address] [place] [address] PCP - ACO Reach 10/31/22 Goals (unrecognized section and content) Goals may [...] BE BASED ON THE PRIMARY CLINICAL RECORDS. [facility] [employer] [facility]. provides no warranty or guarantee of the accuracy or completeness of information in this document.
--- NOTE | 2024-03-23 12:37 | MR_ITS ---
[address] [address] Patient Name: LAURA LAWSON MRN: [facility]:[id number] date: 1950 Sex: F Assigned Patient Location: MRI Current Patient Location: Accession/Order Number: [id number] Exam Date: 03/23/2024 12:50 Report Date: 03/25/2024 07:47 At the request of: ABRAHAM REILLY Procedure: MR lumbar spine wo/w con EXAMINATION: MR lumbar spine wo/w con HISTORY: lumbar radiculopathy COMPARISON: No relevant comparison available. TECHNIQUE: Axial T1 and T2; Sagittal T1, T2, and STIR sequences. Images were performed before and after the administration of intravenous Dotarem contrast. FINDINGS: For the purposes of numbering, sagittal T2 image # 8 extends from the T10 vertebral body superiorly to the S3 level inferiorly. PARASPINAL AREA: Normal with no visible mass. BONES: Normal alignment with no acute fracture or spondylolisthesis. Posterior decompression and bilateral transpedicular fusion L3-L5 with susceptibility artifact. There is increased STIR signal identified in the L2 vertebral body suggesting edema . Moderate diffuse degenerative spondylosis CORD/CAUDA EQUINA: Normal caliber, contour, and signal intensity. DISC LEVELS: 12-L1: Early degenerative disc disease is present without focal protrusion or neural impingement. L1-L2: Early degenerative disc disease is present without focal protrusion or neural impingement. L2-L3: Moderate disc space narrowing and desiccation with endplate sclerosis. Moderate ligamentum flavum hypertrophy and facet osteoarthropathy. Mild trefoil narrowing of the central canal. Mild right and no left foraminal stenosis L3-L4: Interbody spacer. Mild disc/osteophyte complex. Mild central canal stenosis. No foraminal stenosis L4-L5: 2 mm anterolisthesis of L4 on L5 Interbody spacer. Mild disc/osteophyte complex. Mild central canal stenosis. No foraminal stenosis. L5-S1: No significant disc/facet abnormality, spinal stenosis, or foraminal stenosis. MR/MR lumbar spine wo/w con IMPRESSION: Increased L1 STIR signal suggesting bone edema Lumbar fusion with degenerative changes resulting in mild central and foraminal stenosis detailed above Electronically authenticated by: DILLAN ANDREW Date: 03/25/2024 07:47
== END 2024-03-23 12:27 | disposition home or self-care (01) ==
LOC: MRI 12:26
PROVIDERS: PCP Internal Medicine; Visit Provider Internal Medicine
DX: M54.16 Radiculopathy, lumbar region (principal); M43.26 Fusion of spine, lumbar region; M51.369 Other intervertebral disc degeneration, lumbar region without mention of lumbar back pain or lower extremity pain
CPT/HCPCS: 72158; A9575

== ENCOUNTER 2024-04-18 21:35 | Emergency (ER) | payer MEDICARE, OTHER, SELFPAY ==
--- OUTSIDE RECORDS SUMMARY | 2024-04-18 21:43 | XMS_ITS | CCD ---
Author Organization [facility] Care Team Providers Care 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 Name Role Phone PHYSICIAN, DEFAULT Admitting Unavailable PHYSICIAN, DEFAULT Attending Unavailable VLAD CESAR Primary Care Unavailable PHYSICIAN, DEFAULT Admitting Unavailable PHYSICIAN, DEFAULT Attending Unavailable VLAD CESAR Primary Care Unavailable Devang Saavedra Unavailable Abner Roa Unavailable MD Abner Roa Attending Provider [phone] MARK Cesar Primary Care Provider MD Abner Roa Admit Provider MARK Cesar Primary Care Provider MD Abner Roa Attending Provider [phone] MD Chidi Bowen Admit Provider MD [...] Provider MD Boubacar Weston Other Provider Solis ELECTRICAL SOFTWARE ENGINEER-C Latonia Fisher Other Provider MD Roman Rosales E Other Provider MD Riccardo Jenkins Other Provider MD Edie Granados Other Provider MD Eddy Luu Other Provider DO Laine Swan Other Provider Al MD Ruperto Servin Other Provider DO Edwardo Ramirez Other Provider [phone] DO Ziggy Vernon Other Provider DOTTY Degroot Other Provider DO Noam Albarado Other Provider MD Jacobo Montes M Other Provider [phone] Kristie, RN Fariha Other Provider Unavailable MARK [...] Provider MD Fred Nash Other Provider Maggie, REGULATORY ASSOCIATE Mirtha M Other Provider DO Yesi [...] Unavailable Arsenio, MARK Chu Primary Care Provider [phone] MD Abner Roa Attending Provider [phone] Aresnio, MARK Chu Primary Care Provider MD Abner Roa Attending Provider [phone] ARSENIO, DR CHU Primary Care Unavailable HAY ., DR PRICE Attending Unavailable HAY ., DR PRICE Consulting Unavailable HAY ., DR PRICE Admitting Unavailable RUSSELL YATES Consulting Unavailable ARSENIO, DR CHU Attending Unavailable [...] Provider UnavailVlad Leon MD Primary Care Provider [phone] Vlad Cesar MD Unavailable [phone] Abner Roa Admitting Unavailable Abner Roa Attending Unavailable Vlad Cesar Primary Care Unavailable Abner Roa Admitting Unavailable Abner Roa Attending Unavailable Vlad Cesar Primary Care Unavailable Abner Roa Admitting Unavailable Abner Roa Attending Unavailable Vlad Cesar Primary Care Unavailable Arsenio, MAKR Chu Primary Care Provider [phone] MD Abner Roa Attending Provider [phone] ROBBI URIBE Attending Unavailable CASEY العلي Attending Unavailable ROBBI URIBE Referring Unavailable Jason Contreras MD, May Unavailable Unavailable JOSHUA GRIDER Referring Unavailable JULITO ZENDEJAS Attending Unavailable NIRAJ SAN Attending Unavailable DAVEDALE Referring Unavailable DAVE, DALE Referring Unavailable ZENZIVORY Referring Unavailable MYRIAMUKAJULITO BRAVO Attending Unavailable MOUKARBEL, JULITO Admitting Unavailable ANGELIKA SANTOS Referring Unavailable MOUKARBEL, JULITO Attending Unavailable NIRAJ SAN Attending Unavailable SHAWNA LEBLANC Referring Unavailable NIRAJ SAN Attending Unavailable MOUKAJULITO BRAVO Attending Unavailable MOUKARBJASON, JULITO Referring Unavailable MOUKARBEL, JULITO Referring Unavailable ZENZ, IVORY Referring Unavailable MOUKARBJASON, JULITO Referring Unavailable RUPERTO GONZALES Attending Unavailable JOSHUA GRIDER Admitting Unavailable ALEX, IVON Admitting Unavailable UNKNOWN, UNKNOWN Referring Unavailable SHAWNA LEBLANC Attending Unavailable MOUKARBJASON, JULITO Referring Unavailable DAVE, DALE Referring Unavailable Al Paul, Hemant Attending Unavailable Al Shmissy, Hemant Referring Unavailable Corporate, Doctor Attending Unavailable El Rashedy, May Attending Unavailable El Rashedy, May Referring Unavailable Al Paul, Hemant Attending Unavailable Hemant Estrella Referring Unavailable VLAD CESAR Attending Unavailable MYA CISSE Attending Unavailable VLAD CESAR Attending Unavailable VLAD CESAR Attending Unavailable MYA CISSE Attending Unavailable VLAD CESAR Attending Unavailable VLAD CESAR Attending Unavailable HEMNATI MACK Attending Unavailable JADYEN MARK Attending Unavailable HEMMER, NATI Dunn Referring Unavailable JAYDEN MARK Attending Unavailable HEMMERNATI Referring Unavailable JOHN MCKAY Attending Unavailable HEMMER, NATI Dunn Referring Unavailable JOHN MCKAY Attending Unavailable HEMMER, NATI M Referring Unavailable JOHN MCKAY Attending Unavailable HEMMER, NATI M Referring Unavailable NELYJOHN Attending Unavailable HEMMER, NATI M Referring Unavailable NELYJOHN Attending Unavailable HEMMER, NATI M Referring Unavailable VLAD CESAR Attending Unavailable JOHN MCKAY Attending Unavailable HEMMER, NATI M Referring Unavailable JOHN MCKAY Attending Unavailable HEMMER, NATI M Referring Unavailable LORELEI GARRIDO Attending Unavailable HEMMER, NATI M Referring Unavailable NARINDER MEREDITH Attending Unavailable JOHN MCKAY Attending Unavailable HEMMER, NATI M Referring Unavailable JAYDEN MARK Attending Unavailable HEMMER, NATI M Referring Unavailable JOHN MCKAY Attending Unavailable HEMMER, NATI M Referring Unavailable JOHN MCKAY Attending Unavailable NATI CHRISTINA Referring Unavailable VLAD CESAR Attending Unavailable JAYDEN MARK Attending Unavailable NATI CHRISTINA Referring Unavailable JOHN MCKAY Attending Unavailable NATI CHRISTINA Referring Unavailable VLAD CESAR Attending Unavailable NATI CHRISTINA Attending Unavailable VLAD CESAR Attending Unavailable NARINDER MEREDITH Attending Unavailable Allergies Allergy Classification Reported Allergen(s) Allergy Type Date of Onset Reaction(s) Facility (1 source) 14720,00; Translations: [06143,00] Propensity to adverse reactions (disorder) 9 [facility] Repository (20 sources) gabapentin; Translations: [GABAPENTIN] Drug Allergy 2 Palpitations [facility] (20 sources) traMADol; Translations: [tramadol] Drug Allergy 2 Other [facility] (1 source) gabapentin Drug Allergy 4 [facility] Repository (1 source) Penicillin; Translations: [PENICILLIN] Drug Allergy 4 [facility] Medications Current Medications Medication Drug Class(es) Dates Sig (Normalized) Sig (Original) acetaminophen 325 mg oral tablet (15 sources) Start: 03-21-2022 End: 04-03-2022 take 650 mg by mouth every four hours Acetaminophen Active 650 MG PO Q4H 100 April 03, 2022 12:00am allopurinol 300 mg oral tablet (20 sources) Xanthine Oxidase Inhibitor Start: 11-05-2023 allopurinol (Zyloprim) 300 MG tablet Indications: Gout, unspecified cause, unspecified chronicity, unspecified site TAKE 1 TABLET DAILY 100 tablet 3 11/05/2023 Active Start: 03-05-2022 End: 04-03-2022 allopurinol (Zyloprim) 300 M G tablet Indications: Gout, unspecified cause, unspecified chronicity, unspecified site TAKE 1 TABLET DAILY 100 tablet 3 11/05/2023 Active Aspir-81 (15 sources) Aspir-81 Active aspirin [...] End: 07-30-2024 take 1 tablet by mouth once daily atorvastatin (Lipitor) 80 MG tablet Indications: Hyperlipidemia, unspecified hyperlipidemia type (CMS/HCC) Take 1 tablet (80 mg) by mouth Daily 100 tablet 3 04/12/2024 Active Start: 03-05-2022 End: 04-03-2022 take 40 mg by mouth once daily in the evening Atorvastatin Active 40 MG PO Every evening April 03, 2022 12:00am take 1 tablet by annabel th twice daily atorvastatin 40 mg tablet take 1 tablet by oral route 2 times every day 40 MG - Active baclofen 10 mg oral tablet (20 sources) gamma-Aminobutyric Acid-ergic Agonist Start: 03-05-2022 End: 03-15-2024 take 1 tablet by mouth in the morning baclofen (Lioresal) 10 MG tablet Indications: Muscle spasm Take 1 tablet (10 mg) by mouth in the morning and 1 tablet (10 mg) before bedtime. 200 tablet 2 03/15/2024 Active take 1 tablet by mouth three rivera es daily baclofen 10 mg tablet take 1 tablet by oral route 3 times every day 10 MG - Active bumetanide 1 mg oral tablet (20 sources) Loop Diuretic Start: 03-05-2022 End: 04-03-2022 take 1 mg by mouth once daily Bumetanide Active 1 MG PO Daily April 03, 2022 12:00am calcium carbonate 1250 mg oral tablet (17 sources) Start: 04-03-2022 Calcium Carbon ate (Oyster [...] 2022 8:52am carvedilol 6.25 mg oral tablet (17 sources) alpha-Adrenergic Oniel, beta-Adrenergic Oniel Start: 02-05-2024 [...] Indications: NSTEMI (non-ST elevated myocardial infarction) (CMS/HCC) Take 1 tablet (75 mg) by mouth in the morning. 90 tablet 10/13/2023 Active Start: 03-05-2022 End: 04-03-2022 take 1 tablet by mouth once daily Clopidogrel (Plavix) 75 mg Tablet Discontinued 75 MG PO Daily March 05, 2022 12:00am April 03, 2022 8:52am clotrimazole 20 mg/ml vaginal cream (12 sources) Azole Antifungal Start: 12-13-2023 [facility] Clotrimazole 3 2 % vaginal cream INSERT 1 APPLICATORFUL VAGINALLY AT BEDTIME FOR 5 NIGHTS 12/13/2023 Active cyclobenzaprine hydrochloride 10 mg oral tablet (15 sources) Muscle Relaxant Start: 03-21-2022 End: 04-03-2022 take 10 mg by mouth every eight hours Cyclobenzaprine Active 10 MG PO Every 8 hours April 03, 2022 12:00am dapagliflozin 10 mg oral tablet (17 sources) Sodium-Glucose Cotransporter 2 Inhibitor Start: 02-26-2024 dapagliflozin (Farxiga) 10 MG Indications: Type 2 diabetes mellitus with diabetic polyneuropathy, with long-term current use of insulin ([facility]) TAKE 1 TABLET DAILY 100 tablet 3 [...] 03, 2022 8:52am take 1 capsule by [facility] every twenty-four hours Stool Softener 100 MG 1 capsule as needed Orally Once a day Active docusate sodium 50 mg / sennosides, fci 8.6 mg oral tablet (15 sources) Start: 03-21-2022 End: 04-03-2022 take 2 [...] 05, 2022 12:00am April 03, 2022 8:52am Dulaglutide (Trulicity) 3 MG/0.5ML solution auto-injector (1 source) Start: 04-12-2024 inject 3 mg by subcutaneous injection every week Dulaglutide (Trulicity) 3 MG/0.5ML solution auto-injector Indications: Type 2 diabetes mellitus with diabetic polyneuropathy, with long-term current use of insulin (CMS/HCC) Inject 3 mg under the skin 1 (one) time per week 6 mL 3 04/12/2024 Active dulaglutide (Trulicity) 3 MG/0.5ML solution pen-injector (9 sources) Start: 12-25-2023 inject 3 mg by subcutaneous injection every week dulaglutide (Trulicity) 3 MG/0.5ML solution pen-injector Indications: Type 2 diabetes mellitus with diabetic polyneuropathy, with long-term current use of insulin (CMS/HCC) Inject 3 mg under the skin 1 (one) time per week 4 each 12/25/2023 Active ezetimibe 10 mg oral tablet (14 sources) Dietary Cholesterol Absorption Inhibitor Start: 10-14-2023 End: 12-24-2024 take 1 tablet by mouth in the morning ezetimibe (Zetia) 10 MG tablet Indications: Type 2 diabetes mellitus with diabetic polyneuropathy, with long-term current use of insulin (CMS/HCC) Take 1 tablet (10 mg) by mouth in the morning. 30 tablet 12/25/2023 12/24/2024 Active gabapentin 100 mg oral capsule (2 sources) Anti-epileptic Agent Start: 11-08-2021 Gabapentin 100 MG 1 capsule Orally start daily at bedtime and increase by 1 tablet every 5 days until taking three times daily for 30 day(s) Nov, Active HANDICAP PLACARD 5 YEAR (14 sources) Start: 12-02-2022 HANDICAP PLACARD 5 YEAR Indications: Diastolic congestive heart failure, unspecified HF chronicity (CMS/HCC) , Gout, unspecified cause, unspecified chronicity, unspecified site 5 Units by Other route in the morning. 5 Year Duration for Handicap Placard. 1 Units 4 12/02/2022 Active hydrALAZINE hydrochloride 25 mg oral tablet (20 sources) Arteriolar Vasodilator Start: 04-12-2024 take 1 tablet by mouth in the morning hydrALAZINE (Apresoline) 25 MG tablet Indications: Hypertension, unspecified type (CMS/HCC) Take 1 tablet (25 mg) by mouth in the morning and 1 tablet (25 mg) before bedtime. 200 tablet 3 04/12/2024 Active Start: 10-16-2023 take 1 tablet by annabel th in the morning hydrALAZINE (Apresoline) 25 MG [...] Insulin) 100 unit/mL (3 mL) Insulin Pen (15 sources) Start: 04-03-2022 inject 1 dose by [...] 3X/Day with meals and bedtime 0 March 20, 2022 11:00pm April 03, [...] pen injector (20 sources) Insulin Analog Start: 04-12-2024 insulin glargi ne (Toujeo Max SoloStar) 300 UNIT/ML injection Indications: Type 2 Diabetes Mellitus Inject 99 Units under the skin in the morning. 27 mL 3 04/12/2024 Active Start: 06-15-2023 inject 300 [IU] by s ubcutaneous injection in the morning TOUJEO MAX U-300 [...] solution (20 sources) Insulin Analog Start: 07-09-2023 Insulin Lispro (HumaLOG) 100 UNIT/ML solution Indications: Type 2 diabetes mellitus with other specified complication, with long-term current use of insulin ([facility]) Inject 25 Units under the skin in the morning and 25 Units at noon and 25 Units in the evening. Inject before meals. 07/09/2023 Active Start: 07-09-2023 insulin lispro (HumaLOG) 100 unit/mL [...] AM Active irbesartan 300 mg oral tablet (7 sources) Angiotensin 2 Receptor Oniel Start: 04-03-2022 take 300 mg by mouth once daily Irbesartan Active 300 MG PO Daily 30 April 03, 2022 12:00am Klayesta 903323 UNIT/GM powder (12 sources) Start: 12-13-2023 Klayesta 10294 0 UNIT/GM powder Apply 1 application topically [...] tablet (20 sources) Nonsteroidal Anti-inflammatory Drug Start: 04-12-2024 take 1 tablet by mouth once daily at mealtime meloxicam (Mobic) 15 MG tablet Indications: Chronic bilateral low back pain, unspecified whether sciatica present Take 1 tablet (15 mg) by mouth Daily Take with food. 100 tablet 3 04/12/2024 Active Start: 05-09-2023 meloxicam (Mob ic) 15 MG tablet Indications: Chronic bilateral low back pain, unspecified whether sciatica present TAKE 1 TABLET DAILY WITH FOOD 90 tablet 3 05/09/2023 Active Start: 03-05-2022 End: 04-03-2022 take [...] 07/07/2023 Active naproxen 500 mg oral tablet (7 sources) Nonsteroidal Anti-inflammatory Drug Start: 04-03-2022 take [...] capsule (20 sources) Proton Pump Inhibitor Start: 04-12-20 take 1 capsule by mouth before mealtime omeprazole (PriLOSEC) [address] capsule Indications: Gastroesophageal reflux disease, unspecified whether esophagitis present Take 1 capsule (40 mg) by mouth in the morning. Take before meals. Do not crush or chew.. 100 capsule 3 04/12/2024 Active Start: 04-28-2023 omeprazole (Pr iLOSEC) [address] capsule Indications: Gastroesophageal reflux disease, unspecified whether esophagitis present TAKE 1 CAPSULE DAILY 30 MINUTES BEFORE MORNING MEAL 90 capsule 3 04/28/2023 Active Start: 04-03-2022 take 20 mg by mouth once daily Omeprazole Active 20 MG PO Daily April 03, 2022 12:00am Start: 03-05-2022 End: 04-03-2022 take 20 mg by mouth once daily Omeprazole Discontinued 20 MG PO Daily March 05, 2022 12:00am October 26th, 2022 8:52am microencapsulated potassium chloride 20 meq [...] mg / valsartan 51 mg oral tablet (13 sources) Angiotensin 2 Receptor Oniel Start: 03-01-2024 take 1 tablet by mouth in the [...] - Active spironolactone 25 mg oral tablet (12 sources) Aldosterone Antagonist Start: 10-10-2023 End: 10-04-2024 take 1 tablet by mouth once daily spironolactone (Aldactone) 25 MG tablet Indications: Hypertension, unspecified type (CMS/HCC) Take 1 tablet (25 mg) by mouth Daily 100 tablet 3 04/12/2024 Active take 0.5 tablet by mouth once da zach spironolactone 25 mg tablet take 0.5 tablet by oral route every day 12.5 MG - Active SteriLance PA (15 sources) SteriLance PA Ac tive tiZANidine 4 mg oral tablet (13 sources) Central alpha-2 Adrenergic Agonist Start: 03-15-2024 End: 03-29-2024 take 1 tablet by mouth every six hours for muscle spasms tiZANidine (Zanaflex) 4 MG tablet Indications: Right lumbar radiculopathy Take 1 tablet (4 mg) by mouth every 6 (six) hours if needed for muscle spasms 30 tablet 1 03/29/2024 Active torsemide 20 mg oral tablet (20 sources) Loop Diuretic Start: 07-09-2023 take 1 tablet by mouth in the morning torsemide (Demadex) 20 MG tablet Indications: Diastolic congestive heart failure, unspecified HF chronicity (CMS/HCC) Take 1 tablet (20 mg) by mouth in the morning and 1 tablet (20 mg) in the evening. Take before meals. 07/09/2023 Active take 2 tablets by mouth [...] mg/ml / simethicone 4 mg/ml oral suspension (8 sources) Start: 03-21-2022 End: 04-03-2022 take 1 [...] Not-Taking diphenhydrAMINE hydrochloride 25 mg oral capsule (8 sources) Histamine-1 Receptor Antagonist Start: 03-21-2022 End: 04-03-2022 take 25 mg by mouth every six hours Diphenhydramine Hcl Discontinued 25 MG PO Q6H 0 March 21, 2022 12:00am April 03, 2022 8:52am Magnesium Hydroxide (8 sources) Start: 03-21-2022 End: 04-03-2022 take 1 [...] 12:00am oxyCODONE hydrochloride 5 mg oral tablet (16 sources) Opioid Agonist Start: 03-21-2022 End: 04-03-2022 [...] 2022 8:52am predniSONE 10 mg oral tablet (8 sources) Start: 03-21-2022 End: 04-03-2022 take 40 [...] Date Documented Date Episodic/Chronic Acute myocardial infarction (13 sources) Myocardial infarction; Translations: [Acute myocardial infarction, unspecified] Onset: 07-02-2023 03-23-2022 Chronic Administrative/social admission (9 sources) Other reduced mobility; Translations: [Impaired mobility and endurance] 03-23-2022 Episodic Cataract (3 sources) Bilateral senile combined form cataracts of eyes; Translations: [Bilateral senile combined form cataracts of eyes] Onset: 03-02-2024 Chronic Congestive heart failure; nonhypertensive (20 sources) Unspecified diastolic (congestive) heart failure; Translations: [Acute on chronic diastolic heart failure] Onset: 05-17-2022 Chronic Coronary atherosclerosis and other heart disease (20 sources) Coronary arteriosclerosis; Translations: [Atherosclerotic heart disease of [place] coronary artery without angina pectoris] Onset: 09-24-2023 03-23-2022 Chronic Diabetes mellitus with complications (20 sources) Skin ulcer due to type 2 diabetes mellitus; Translations: [Type 2 diabetes mellitus with other skin ulcer] Onset: 11-25-2019 Resolved: 12-19-2023 10-28-2022 Chronic Diabetes mellitus without complication (20 sources) Type 2 diabetes mellitus; Translations: [Type 2 diabetes mellitus without complications] Onset: 05-16-2022 03-23-2022 Chronic Disorders of lipid metabolism (20 sources) Hyperlipidemia; Translations: [Hyperlipidemia, unspecified] Onset: 09-20-2020 03-23-2022 Chronic Esophageal disorders (20 sources) Gastroesophageal reflux disease; Translations: [Gastro-esophageal reflux disease without esophagitis] Onset: 10-15-2022 03-23-2022 Chronic Essential hypertension (20 sources) Hypertensive disorder; Translations: [Essential (primary) hypertension] Onset: 05-16-2022 03-23-2022 Chronic Gout and other crystal arthropathies (20 sources) Gout; Translations: [Gout, unspecified] Onset: 10-15-2022 03-23-2022 Chronic Immunity disorders (2 sources) Secondary immune deficiency disorder; Translations: [Immunodeficiency due to conditions classified elsewhere ([facility])] 07-21-2023 Chronic Mycoses (2 sources) Pain in toe; Translations: [Tinea unguium] 04-09-2024 Episodic Osteoarthritis (20 sources) Localized, primary osteoarthritis of the pelvic region and thigh; Translations: [Unilateral primary osteoarthritis, left hip] Onset: 10-17-2016 Resolved: 10-15-2021 Chronic Osteoporosis (20 sources) Senile osteoporosis; Translations: [Age-related osteoporosis without current pathological fracture] Onset: 03-08-2020 01-13-2023 Chronic Other acquired deformities (11 sources) Lumbar spondylolisthesis; Translations: [Spondylolisthesis, lumbar region] [...] 07-07-2023 Chronic Other and ill-defined heart disease (14 sources) Diastolic dysfunction; Translations: [Other ill-defined heart diseases] Onset: 01-13-2023 01-13-2023 Chronic Other circulatory disease (2 sources) Peripheral vascular angioplasty status with implants and grafts; Translations: [Peripheral vascular angioplasty status with implants and grafts] Onset: 12-04-2023 Chronic Other connective tissue disease (2 sources) History of lumbar fusion; Translations: [Arthrodesis status] 10-23-2023 Episodic Other connective tissue disease (1 source) Arthrodesis status; Translations: [Arthrodesis status] 10-23-2023 Episodic Other connective tissue disease (2 sources) Spasm; Translations: [Other muscle spasm] 03-15-2024 Episodic Other diseases of kidney and ureters (14 sources) Renal mass; Translations: [Other specified disorders of kidney and ureter] Onset: 05-28-2017 01-13-2023 Chronic Other diseases of veins and lymphatics (16 sources) Peripheral venous insufficiency; Translations: [Venous insufficiency (chronic) (peripheral)] Onset: 01-10-2020 01-13-2023 Episodic Other nervous system disorders (15 sources) Chronic pain; Translations: [Other chronic pain] Chronic Other nervous system disorders (5 sources) Other chronic pain Onset: 09-25-2021 Resolved: 12-07-2021 Chronic Other nervous system disorders (9 sources) Cervical myelopathy; Translations: [Disease of spinal cord, unspecified] Chronic Other nervous system disorders (1 source) Disease of spinal cord, unspecified Onset: 12-06-2021 Resolved: 12-06-2021 Chronic Other nervous system disorders (16 sources) Difficulty walking; Translations: [Difficulty in walking, not elsewhere classified] Onset: 04-24-2021 01-13-2023 Chronic Other nervous system disorders (1 source) Bilateral carpal tunnel syndrome; Translations: [Carpal tunnel syndrome, bilateral upper limbs] 08-19-2023 Chronic Other nervous system disorders (1 source) Carpal tunnel syndrome, bilateral upper limbs; Translations: [Carpal tunnel syndrome, bilateral upper limbs] Onset: 12-15-2023 Chronic Other nutritional; endocrine; and metabolic disorders (9 sources) Body mass index 40+ - severely [...] Chronic Other nutritional; endocrine; and metabolic disorders (14 sources) Morbid obesity; Translations: [Morbid (severe) obesity due to excess calories] Onset: 10-08-2013 01-13-2023 Chronic Residual codes; unclassified (7 sources) Sleep apnea; Translations: [Sleep apnea, unspecified] 03-23-2022 Chronic Residual codes; unclassified (3 sources) Sleep apnea, unspecified; Translations: [Unspecified sleep apnea] Onset: 05-16-2022 04-03-2022 Chronic Residual codes; unclassified (14 sources) Obstructive sleep apnea syndrome; Translations: [Obstructive [...] Problem Date Documented Date Episodic/Chronic Abdominal hernia (14 sources) Umbilical hernia; Translations: [Umbilical hernia without obstruction or gangrene] Onset: 10-15-2022 10-15-2022 Episodic Calculus of urinary tract (14 sources) Kidney stone; Translations: [Calculus of kidney] Onset: 10-15-2022 10-15-2022 Episodic Mood disorders (3 sources) Mood disorders Onset: 08-19-2023 08-19-2023 Neoplasms of unspecified nature or uncertain behavior (14 sources) Neoplasm of uncertain behavior of kidney; Translations: [Neoplasm of uncertain behavior of unspecified kidney] Onset: 10-07-2013 01-13-2023 Episodic Other acquired deformities (14 sources) Acquired spondylolisthesis; Translations: [Spondylolisthesis, site unspecified] Onset: 01-13-2023 01-13-2023 Episodic Other aftercare (1 source) 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 coordinator (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 of aspirin; Translations: [SMOKE TESTER CURRENT USE OF ASPIRIN] Onset: 05-16-2022 Episodic Other aftercare (1 source) nursing home (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 of insulin; Translations: [SMOKE TESTER CURRENT USE OF INSULIN] Onset: 05-16-2022 Episodic Other aftercare (1 source) Other salvage determiner (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 therapy; Translations: [OTH SMOKE TESTER CURRENT DRUG THERAPY] Onset: 05-16-2022 Episodic Other aftercare (14 sources) Long-term current use of insulin; Translations: [nursing home (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 of insulin] Onset: 07-12-2015 01-13-2023 Episodic Other and unspecified benign neoplasm (14 sources) Angiomyolipoma of kidney; Translations: [Benign lipomatous neoplasm of kidney] Onset: 10-15-2022 10-15-2022 Episodic Other connective tissue disease (3 sources) Other specified soft tissue disorders; Translations: [OTHER SPEC SOFT TISSUE DISORDERS] Onset: 12-06-2022 Episodic Other connective tissue disease (1 source) Synovial cyst of popliteal space [Finch], right knee; Translations: [SYNOVIAL CYST POP SPACE RIGHT KNEE] Onset: 05-16-2022 Episodic Other connective tissue disease (14 sources) H/O: arthritis; Translations: [Personal history of other diseases of the musculoskeletal system and connective tissue] Onset: 10-08-2013 01-13-2023 Episodic Other lower respiratory disease (2 sources) Other forms of dyspnea; Translations: [Other forms of dyspnea] Onset: 07-02-2023 Episodic Other nervous system disorders (14 sources) Skin sensation disturbance; Translations: [Unspecified disturbances of skin sensation] Onset: 11-05-2019 01-13-2023 Episodic Other nervous system disorders (14 sources) Paresthesia; Translations: [Paresthesia of skin] Onset: 01-13-2023 01-13-2023 Episodic Other screening for suspected conditions (not mental disorders or infectious disease) (20 sources) Coronary arteriosclerosis excluded; Translations: [Encounter for observation for other suspected diseases and conditions ruled out] Onset: 11-02-2013 Resolved: 09-24-2023 10-15-2022 Episodic Residual codes; unclassified (1 source) Asymptomatic menopausal state Onset: 12-06-2021 Resolved: 12-06-2021 Episodic Residual codes; unclassified (14 sources) Localized edema; Translations: [Localized edema] Onset: 10-28-2022 10-28-2022 Episodic Skin and subcutaneous tissue infections (1 source) Cellulitis of right lower limb; Translations: [CELLULITIS OF RIGHT LOWER LIMB] Onset: 05-16-2022 Episodic Spondylosis; intervertebral disc disorders; other back problems (20 sources) Radiculopathy, lumbar region; Translations: [Lumbar radiculopathy] Onset: 10-07-2013 Resolved: 01-15-2022 Episodic Thyroid disorders (14 sources) Disorder of thyroid gland; Translations: [Disorder [...] Test Name Value Interpretation Reference Range Facility Laboratory - Hematology and Cell countson 04-02-2024 HbA1c (Bld) [Mass fraction] 8.9 % [facility] No Panel Informationon 04-02 [facility] Healthcare Office Visiton 03-05-2024 Follow-up visit [id number] Laura Lawson 1950 F Date Provider Department Center 03/05/2024 JULITO SALAZAR ESTHELA [facility] Family History Problem Relation Age of Onset ROD disease Mother Heart attack Father Family Status - Relation Status Age at Mother Father Level of Service:07430 [place] OFFICE/OUTPATIENT ESTABLISHED MOD MDM 30 MIN Normal [facility] Office Visiton 12-04-2023 Follow-up visit [id number] Laura Lawson 1950 F Date Provider Department Center 12/04/2023 JULITO SALAZAR ESTHELA [facility] Family History Problem Relation Age of Onset ROD disease Mother Heart attack Father Family Status - Relation Status Age at Mother Father Level of Service:39890 [place] OFFICE/OUTPATIENT ESTABLISHED MOD MDM 30 MIN Normal [facility] XR lumbar spine AP/LAT/FLX/E XTon 10-23-2023 XR lumbar spine AP/LAT/FLX/EXT [facility] [place] [address] XRay Report Signed Patient: Laura Lawson MR#: [id number] : 1950 Acct:[id number] Age/Sex: 72 / F ADM Date: 10/23/23 Loc: XD Room: Type: [facility] CLI Attending Dr: Abner Roa MD Copies to: [...] Amaury Devlin M.D.10/23/2023 2:34 PM Dictation Location: [place] [address] Transcribed By: [facility] 10/23/23 143 Dictated By: Amaury Devlin DO 10/23/23 1430 Signed By: 10/23/23 143 Normal [facility] Office Visiton 10-14-2023 Follow-up visit [id number] Laura Lawson 1950 F Date Provider Department Center 10/14/2023 NIRAJ COOPER CARD [facility] Family History Problem Relation Age of Onset ROD disease Mother Heart attack Father Family Status - Relation Status Age at Mother Father Level of Service:96901 [place] OFFICE/OUTPATIENT ESTABLISHED MOD MDM 30 MIN Reason for Visit and Comments: Coronary Artery Disease [187] Congestive Heart Failure [127] Hypertension [169636] Normal [facility] 30on [...] gap [Moles/Vol] 11 mmol/L Normal 7-20 [facility] Comment on above: Performed By: #### L [id number] #### [facility] ([facility]) [address] [place] [address] Calcium [Mass/Vol] 9.7 mg/dL Normal 8.6-10.3 [facility] Comment on above: Performed By: #### L [id number] #### [facility] [address] [place] [address] Chloride [Moles/Vol] 104 mmol/L Normal 98-107 [facility] Comment on above: Performed By: #### L [id number] #### [facility] ([facility]) [address] [place] [address] CO2 [Moles/Vol] 24 mmol/L Normal 21-31 [facility] Comment on above: Performed By: #### L [id number] #### [facility] ([facility]) [address] [place] [address] Creatinine [Mass/Vol] 1.18 mg/dL Normal 0.60-1.20 [facility] Comment on above: Performed By: #### L [id number] #### [facility] ([facility]) [address] [place] [address] GLOMERULAR FILTRATION RATE ML/MIN/1.73 SQ M.PREDICTED 49.7 [...] group of individuals. Performed By: #### L [id number] #### [facility] ([facility]) [address] [place] [address] Glucose [Mass/Vol] 231 mg/dL High 70-100 [facility] Comment on above: Performed By: #### L [id number] #### [facility] ([facility]) [address] [place] [address] Potassium [Moles/Vol] 4.2 mmol/L Normal 3.5-5.1 [facility] Comment on above: Performed By: #### L [id number] #### [facility] ([facility]AKER) [address] [place] [address] Sodium [Moles/Vol] 135 mmol/L Low 136-145 [facility] Comment on above: Performed By: #### L [id number] #### [facility] [address] [place] [address] Urea nitrogen [Mass/Vol] 37 mg/dL High 7-25 [facility] Comment on above: Performed By: #### L [id number] #### [facility] [address] [place] [address] UREA NITROGEN/CREATININE (MASS RATIO) IN SER/PLAS 31.4 Normal [facility] Comment on above: Performed By: #### L [id number] #### [facility] [address] [place] [address] CBCon 10-09-2023 Erythrocyte distribution width (RBC) [Ratio] 15.1 % High 11.5-15.0 [facility] Comment on above: Performed By: #### L [id number] ####[facility] (BEAKER)[address] [place] [address] ERYTHROCYTE MEAN CORPUSCULAR HEMOGLOBIN CONCENTRATION (G/DL) BY AUTOMATED 31.9 g/dL Low 32.0-35.0 [facility] Comment on above: Performed By: #### L [id number] ####[facility] ([facility] [place] [address] Hematocrit (Bld) [Volume fraction] 32.9 % Low 36.0-48.0 [facility] Comment on above: Performed By: #### L [id number] ####[facility] (BEAKER)[address] [place] [address] Hemoglobin (Bld) [Mass/Vol] 10.5 g/dL Low 12.0-15.0 [facility] Comment on above: Performed By: #### L [id number] ####[facility] (BEAKER)[address] [place] [address] MCH (RBC) [Entitic mass] 32.0 pg Normal 27.0-33.0 [facility] Comment on above: Performed By: #### L [id number] ####[facility] [place] [address] MCV (RBC) [Entitic vol] 100.3 fL High 82.0-98.0 [facility] Comment on above: Performed By: #### L [id number] ####[facility] [place] [address] PLATELETS (10*3/UL) IN BLOOD AUTOMATED COUNT 259 10*3/uL Normal 150-400 [facility] Comment on above: Performed By: #### L [id number] ####[facility] ([facility] [place] [address] RBC (Bld) [#/Vol] 3.28 10*6/uL Low 3.80-5.00 [facility] Comment on above: Performed By: #### L [id number] ####[facility] (BEAKER)[address] [place] [address] WBC (Bld) [#/Vol] 13.05 10*3/uL High 4.00-10.60 [facility] Comment on above: Performed By: #### L [id number] ####[facility] [place] [address] DSon 10-09-2023 DS --- Attestation signed by [...] [Mass/Vol] 225 mg/dL High 70-105 [facility] Comment on above: Order Comment: Waive d Testing in the ED is performed under the ED CLIA certificate #[id number]. Result Comment: [email or web address] Performed By: #### L [id number] #### [facility] ([facility]) [address] [place] [address] Glucose [Mass/Vol] 215 mg/dL High 70-105 [facility] Comment on above: Order Comment: Waive d Testing in the ED is performed under the ED CLIA certificate #[id number]. Result Comment: [email or web address] Performed By: #### L [id number] #### [facility] ([facility]AKER) [address] [place] [address] 30on 10-08-2023 30 The patient is Moderately [...] over the next 3 months Outcome: Progressing [facility] HPon 10-08-2023 HP H&P reviewed. The [...] explained the procedure with risks and benefits. [facility] NURSNOTEon 10-08-2023 NURSNOTE Report called to Benigno cabello RN. He denies questions/concerns. [facility] POCT GLUCOSE METER UNSOLICIT ED RESULTSon 10-08-2023 Glucose [Mass/Vol] 208 mg/dL High 70-105 [facility] Comment on above: Order Comment: Nae calvo Testing in the ED is performed under the ED CLIA certificate #[id number]. Result Comment: [email or web address] Performed By: #### L [id number] #### [facility] ([facility]) [address] [place] [address] Glucose [Mass/Vol] 179 mg/dL High 70-105 [facility] Comment on above: Order Comment: Waive d Testing in the ED is performed under the ED CLIA certificate #[id number]. 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 ([facility]/HCC) Low back pain Morbid obesity ([facility]) Neoplasm of uncertain behavior of kidney Obstructive sleep apnea syndrome Osteoarthritis of knee Osteoporosis Peripheral venous insufficiency Polyneuropathy due to type 2 diabetes mellitus ([facility]/HCC) Preoperative evaluation to rule out surgical contraindication Pulmonary function studies abnormal Pure hypercholesterolemia Renal mass Skin sensation disturbance Type 2 diabetes mellitus without complication ([facility]/HCC) Umbilical hernia Uric acid nephrolithiasis NSTEMI (non-ST elevated myocardial infarction) ([facility]/HCC) Acute exacerbation of CHF (congestive heart failure) ([facility]) COVID-19 Acquired spondylolisthesis Acute on chronic diastolic heart failure ([facility]/HCC) Coronary artery disease (CAD) excluded Diastolic dysfunction GERD (gastroesophageal reflux disease) History of carpal tunnel surgery of right wrist Hyperlipidemia Impaired mobility and endurance Localized edema Lumbar radiculopathy Morbid obesity with body mass index (BMI) of 45.0 to 49.9 in adult ([facility]/HCC) Paresthesia of skin Primary osteoarthritis of both knees S/P drug eluting coronary stent placement Ulcer of foot due to type 2 diabetes mellitus ([facility]/HCC) Pericardial effusion Acute systolic heart failure ([facility]/HCC) 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 Family History Problem Relation Name Age [...] alert and (more content not included)... Normal [facility] Office Visiton 09-26-2023 Follow-up visit [id number] Laura Lawson 1950 F Date Provider Department Center 09/26/2023 Rosemary-JULITO ZENDEJAS CARD [facility] Family History Problem Relation Age of Onset ROD disease Mother Heart attack Father Family Status - Relation Status Age at Mother Father Level of Service:47699 [place] OFFICE/OUTPATIENT ESTABLISHED HIGH MDM 40 MIN Reason for Visit and Comments: Follow-up [910417] - Follow up - heart cath Normal [facility] 30on 09-10-2023 30 Daily Case Managemen [...] PT Recommendations: OT Recommendations: New Consults: Normal [facility] CBC WITH AUTO DIFFERENTIALon 09-10-2023 Basophils (Bld) [#/Vol] 0.05 10*3/uL Normal 0.00-0.20 [facility] Comment on above: Performed By: #### L [id number] #### [facility] ([facility]ER) [address] [place] [address] Basophils/100 WBC (Bld) 0.6 % Normal 0.0-1.0 [facility] Comment on above: Performed By: #### L [id number] #### [facility] ([facility]ER) [address] [place] [address] Eosinophils (Bld) [#/Vol] 0.35 10*3/uL Normal 0.00-0.50 [facility] Comment on above: Performed By: #### L [id number] #### [facility] ([facility]) [address] [place] [address] Eosinophils/100 WBC (Bld) 4.0 % Normal 0.0-6.0 [facility] Comment on above: Performed By: #### L [id number] #### [facility] ([facility]) [address] [place] [address] Erythrocyte distribution width (RBC) [Ratio] 15.7 % High 11.5-15.0 [facility] Comment on above: Performed By: #### L [id number] #### [facility] ([facility]) [address] [place] [address] ERYTHROCYTE MEAN CORPUSCULAR HEMOGLOBIN CONCENTRATION (G/DL) BY AUTOMATED 32.6 g/dL Normal 32.0-35.0 [facility] Comment on above: Performed By: #### L [id number] #### [facility] ([facility]) [address] [place] [address] Hematocrit (Bld) [Volume fraction] 38.0 % Normal 36.0-48.0 [facility] Comment on above: Performed By: #### L [id number] #### [facility] [address] [place] [address] Hemoglobin (Bld) [Mass/Vol] 12.4 g/dL Normal 12.0-15.0 [facility] Comment on above: Performed By: #### L [id number] #### [facility] ([facility]) [address] [place] [address] Immature granulocytes (Bld) [#/Vol] 0.02 10*3/uL Normal 0.00-0.20 [facility] Comment on above: Performed By: #### L [id number] #### [facility] ([facility]) [address] [place] [address] Immature granulocytes/100 WBC (Bld) 0.2 % Normal 0.0-1.0 [facility] Comment on above: Performed By: #### L [id number] #### [facility] ([facility]) [address] [place] [address] Lymphocytes (Bld) [#/Vol] 1.93 10*3/uL Normal 1.20-4.00 [facility] Comment on above: Performed By: #### L [id number] #### [facility] ([facility]) [address] [place] [address] Lymphocytes/100 WBC (Bld) 22.0 % Normal 20.0-45.0 [facility] Comment on above: Performed By: #### L [id number] #### [facility] ([facility]) [address] [place] [address] MCH (RBC) [Entitic mass] 30.7 pg Normal 27.0-33.0 [facility] Comment on above: Performed By: #### L [id number] #### [facility] ([facility]) [address] [place] [address] MCV (RBC) [Entitic vol] 94.1 fL Normal 82.0-98.0 [facility] Comment on above: Performed By: #### L [id number] #### [facility] ([facility]) [address] [place] [address] Monocytes (Bld) [#/Vol] 1.04 10*3/uL High 0.10-1.00 [facility] Comment on above: Performed By: #### L [id number] #### [facility] ([facility]) [address] [place] [address] Monocytes/100 WBC (Bld) 11.8 % Normal 5.0-12.0 [facility] Comment on above: Performed By: #### L [id number] #### [facility] [address] [place] [address] Neutrophils (Bld) [#/Vol] 5.40 10*3/uL Normal 1.60-7.60 [facility] Comment on above: Performed By: #### L [id number] #### [facility] [address] [place] [address] Neutrophils/100 WBC (Bld) 61.4 % Normal 40.0-72.0 [facility] Comment on above: Performed By: #### L [id number] #### [facility] ([facility]) [address] [place] [address] NRBC (PER 100 WBCS) BY AUTOMATED COUNT 0.0 % Normal 0 [facility] Comment on above: Performed By: #### L [id number] #### [facility] ([facility]) [address] [place] [address] PLATELETS (10*3/UL) IN BLOOD AUTOMATED COUNT 256 10*3/uL Normal 150-400 [facility] Comment on above: Performed By: #### L [id number] #### [facility] ([facility]) [address] [place] [address] RBC (Bld) [#/Vol] 4.04 10*6/uL Normal 3.80-5.00 [facility] Comment on above: Performed By: #### L [id number] #### [facility] ([facility]) [address] [place] [address] WBC (Bld) [#/Vol] 8.79 10*3/uL Normal 4.00-10.60 [facility] Comment on above: Performed By: #### L [id number] #### [facility] [address] [place] [address] COMPREHENSIVE METABOLIC PANE Agus 09-10-2023 Albumin [Mass/Vol] 3.5 g/dL Normal 3.5-5.7 [facility] Comment on above: Performed By: #### L [id number] #### [facility] [address] [place] [address] ALP [Catalytic activity/Vol] 67 U/L Normal 34-104 [facility] Comment on above: Performed By: #### L [id number] #### [facility] ([facility]) [address] [place] [address] ALT [Catalytic activity/Vol] 12 U/L Normal 7-52 [facility] Comment on above: Performed By: #### L [id number] #### [facility] (BEAKER) [address] [place] [address] Anion gap [Moles/Vol] 11 mmol/L Normal 7-20 [facility] Comment on above: Performed By: #### L [id number] #### [facility] (BEAKER) [address] [place] [address] AST [Catalytic activity/Vol] 15 U/L Normal 13-39 [facility] Comment on above: Performed By: #### L [id number] #### [facility] ([facility]ER) [address] [place] [address] Bilirubin [Mass/Vol] 0.6 mg/dL Normal 0.3-1.0 [facility] Comment on above: Performed By: #### L [id number] #### [facility] ([facility]) [address] [place] [address] Calcium [Mass/Vol] 9.5 mg/dL Normal 8.6-10.3 [facility] Comment on above: Performed By: #### L [id number] #### [facility] ([facility]) [address] [place] [address] Chloride [Moles/Vol] 103 mmol/L Normal 98-107 [facility] Comment on above: Performed By: #### L [id number] #### [facility] ([facility]) [address] [place] [address] CO2 [Moles/Vol] 26 mmol/L Normal 21-31 [facility] Comment on above: Performed By: #### L [id number] #### [facility] ([facility]) [address] [place] [address] Creatinine [Mass/Vol] 0.84 mg/dL Normal 0.60-1.20 [facility] Comment on above: Performed By: #### L [id number] #### [facility] ([facility]) [address] [place] [address] GLOMERULAR FILTRATION RATE ML/MIN/1.73 SQ M.PREDICTED 74.7 [...] individuals. Performed By: #### L [id number] #### [facility] ([facility]) [address] [place] [address] Glucose [Mass/Vol] 148 mg/dL High 70-100 [facility] Comment on above: Performed By: #### L [id number] #### [facility] ([facility]) [address] [place] [address] Potassium [Moles/Vol] 4.1 mmol/L Normal 3.5-5.1 [facility] Comment on above: Performed By: #### L [id number] #### [facility] ([facility]) [address] [facility] [place] [address] Protein [Mass/Vol] 5.8 g/dL Low 6.0-8.3 [facility] Comment on above: Performed By: #### L [id number] #### [facility] ([facility]) [address] [place] [address] Sodium [Moles/Vol] 136 mmol/L Normal 136-145 [facility] Comment on above: Performed By: #### L [id number] #### [facility] ([facility]) [address] [place] [address] Urea nitrogen [Mass/Vol] 27 mg/dL High 7-25 [facility] Comment on above: Performed By: #### L [id number] #### [facility] [address] [place] [address] UREA NITROGEN/CREATININE (MASS RATIO) IN SER/PLAS 32.1 Normal [facility] Comment on above: Performed By: #### L [id number] #### [facility] [address] [place] [address] HEMOGLOBIN A1Con 09-10-2023 Glucose [Mass/Vol] 252 mg/dL Normal [facility] Comment on above: Performed By: #### L [id number] #### [facility] ([facility]) [address] [place] [address] HbA1c (Bld) [Mass fraction] 10.4 % High 4.0-6.0 [facility] Comment on above: Performed By: #### L [id number] #### [facility] ([facility]) [address] [place] [address] LIPID PANELon 09-10-2023 CHOL/HDL 2.8 mg/dL Normal [facility] Comment on above: Performed By: #### L [id number] ####[facility] [place] [address] Cholesterol [Mass/Vol] 148 mg/dL Normal 120-200 [facility] Comment on above: Performed By: #### L [id number] ####[facility] [place] [address] Magnesium [Mass/Vol] 89 mg/dL Normal 40-149 [facility] Comment on above: Result Comment: TRIG LYCERIDE REFERENCE RANGE: 20 YEARS AND OLDER CARDIOVASCULAR RISK LESS THAN 150 mg/dL LOW RISK 150 TO 199 mg/dL BORDERLINE RISK 200 mg/dL AND GREATER HIGH RISK Performed By: #### L [id number] ####[facility] [place] [address] Magnesium [Mass/Vol] 77 mg/dL Normal 0-160 [facility] Comment on above: Performed By: #### L [id number] ####[facility] ([facility])[address] [place] [address] Magnesium [Mass/Vol] 53 mg/dL Normal 23-92 [facility] Comment on above: Performed By: #### L [id number] ####[facility] ([facility])[address] [place] [address] NON HDL CHOL. (LDL+VLDL) 95 Normal [facility] Comment on above: Performed By: #### L [id number] ####[facility] ([facility])[address] [place] [address] TOTAL VLDL-C 18 mg/dL Normal 0-40 [facility] Comment on above: Performed By: #### L [id number] ####[facility] [facility] ([facility])[address] [place] [address] MAGNESIUMon 09-10-2023 Magnesium [Mass/Vol] 2.1 mg/dL Normal 1.9-2.7 [facility] Comment on above: Performed By: #### L [id number] #### [facility] ([facility]) [address] [place] [address] NURSNOTEon 09-10-2023 NURSNOTE AVS reviewed and discussed with the patient. The patient has no further questions or concerns at this time. [employer] has delivered two medications to the room. The patient has notified her friend of needing a ride home ETA 1900. Normal [facility] POCT GLUCOSE METER UNSOLICIT ED RESULTSon 09-10-2023 Glucose [Mass/Vol] 156 mg/dL High 70-105 [facility] Comment on above: Order Comment: Waive d Testing in the ED is performed under the ED CLIA certificate #[id number]. Result Comment: [email or web address] Performed By: #### L [id number] #### [facility] ([facility]) [address] [place] [address] Glucose [Mass/Vol] 141 mg/dL High 70-105 [facility] Comment on above: Order Comment: Waive d Testing in the ED is performed under the ED CLIA certificate #[id number]. Result Comment: [email or web address] Performed By: #### L [id number] #### [facility] (BEAKER) [address] [place] [address] 30on 09-09-2023 30 The patient is Moderately [...] [facility] HPon 09-09-2023 HP History Of Present Illness Laura Lawson is [...] systolic heart failure. Coronary artery disease involving catawba coronary artery of catawba heart without angina pectoris status post stent [...] [Mass/Vol] 163 mg/dL High 70-105 [facility] Comment on above: Order Comment: Waive d Testing in the ED is performed under the ED CLIA certificate #[id number]. Result Comment: [email or web address] Performed By: #### L [id number] #### [facility] (BEAKER) [address] [place] [address] Glucose [Mass/Vol] 228 mg/dL High 70-105 [facility] Comment on above: Order Comment: Waive d Testing in the ED is performed under the ED CLIA certificate #[id number]. Result Comment: [email or web address] Performed By: #### L [id number] #### [facility] ([facility]ER) [address] [facility] [place] [address] 36on 08-28-2023 36 Reviewed their note. Lets proceed with a cardiac cath please for assessment of her acute systolic heart failure. They also recommended a LOOP recorder. Can we see if this can be done the same day? If not, will plan for cath first. Thanks! [facility] Orders Onlyon 08-28-2023 Orders Only [id number] Laura Lawson A 1950 F Date Provider Department Center 08/28/2023 MATTHEW JOHNSON Family History Problem Relation Age of Onset ROD disease Mother Heart attack Father Family Status - Relation Status Age at Mother Father [facility] 36on 08-21-2023 36 Any updates after he r neuro appt? [facility] 36on 08-18-2023 36 Regarding echo performed on 08/14/2023: Niraj San, SHANDRA Medina MA Please let her know her labs show normal kidney function and blood counts. Her ECHO shows her the fluid around her heart has improved, only a small amount. Awaiting to hear from her neurology appt on 08/18 if okay to proceed with cardiac cath. Thanks! LM on patient's VM. [facility] Telephoneon 08-18-2023 Telephone [id number] Laura Lawson A 1950 Date Provider Department Center 08/18/2023 NIRAJ COOPER Family History Problem Relation Age of Onset ROD disease Mother Heart attack Father Family Status - Relation Status Age at Mother Father [facility] 37on 07-31-2023 37 *Your recent heart [...] 80mg daily *Follow-up after heart cath procedure [facility] Office Visiton 07-31-2023 Follow-up visit [id number] Rod Lawsondesiree Thomas 1950 F Date Provider Department Center 07/31/2023 NIRAJ COOPER Family History Problem Relation Age of Onset ROD disease Mother Heart attack Father Family Status - Relation Status Age at Mother Father Level of Service:[address] [place] OFFICE/OUTPATIENT ESTABLISHED HIGH MDM 40 MIN Reason for Visit and Comments: Congestive Heart Failure [127] Hypertension [830536] [facility] 36on 07-24-2023 36 Regarding echo performed [...] to see you next week, 07/31. Normal [facility] 36 Patient has acute systolic heart failure and she will need a cardiac cath. Can we please find out when she will be seeing neurology as we will need clearance from them before proceeding. Thank you! [facility] Telephoneon 07-24-2023 Telephone [id number] Joselo Lawsonanant Thomas 1950 Date Provider Department Center 07/24/2023 NIRAJ COOPER Family History Problem Relation Age of Onset ROD disease Mother Heart attack Father Family Status - Relation Status Age at Mother Father Normal [facility] Office Visiton 07-16-2023 Follow-up visit [id number] Laura Lawson 1950 Provider Department Center 07/16/2023 Zaida-NIRAJ SAN CARD [facility] Family History Problem Relation Age of Onset ROD disease Mother Heart attack Father Family Status - Relation Status Age at Mother Father Level of Service:30374 [place] OFFICE/OUTPATIENT ESTABLISHED MOD MDM 30 MIN Reason for Visit and Comments: Hypertension [909447] [facility] 36on 07-08-2023 36 DC on 07/07/2022 Spoke to pts caregiver Latrice Piña reconciled with caregiver Pt is going to try to get follow up in next 7 days in [place] and will call to cancel her appt with [facility] cardiology. Will leave appt in place until pt confirms [facility] Documentationon 07-08-2023 Documentation [id number] Laura Lawson 1950 Provider Department Center 07/08/2023 [id number] BUENO HVC VASC LAB PA [facility] Family History Problem Relation Age of Onset ROD disease Mother Heart attack Father Family Status - Relation Status Age at Mother Father Reason for Visit and Comments: HF inpatient satisfaction survey sent. [Other] [facility] Telephoneon 07-08-2023 Telephone [id number] Laura Lawson 1950 Provider Department Center 07/08/2023 Patrick6-FRANK BOGGS HVCANTICOAG PA [facility] Family History Problem Relation Age of Onset ROD disease Mother Heart attack Father Family Status - Relation Status Age at Mother Father Reason for Visit and Comments: hospital DC follow up call [Other] [facility] 30on 07-07-2023 30 The patient is Moderately Stable - Low risk of patient condition declining or worsening The patient's goals for the shift include comfort The clinical goals for the shift include VSS Over the shift, the patient did make progress toward the following goals. Due to patient being covid+ and needing to stay in isolation until 2/ due to policy, neurology stated patient can [...] [Mass/Vol] 213 mg/dL High 70-105 [facility] Comment on above: Order Comment: Waive d Testing in the ED is performed under the ED CLIA certificate #[id number]. Result Comment: [email or web address] Performed By: #### L [id number] #### [facility] ([facility]) [address] [place] [address] Glucose [Mass/Vol] 91 mg/dL Normal 70-105 [facility] Comment on above: Order Comment: Waive d Testing in the ED is performed under the ED CLIA certificate #[id number]. Result Comment: [email or web address] Performed By: #### L [id number] #### [facility] ([facility]) [address] [place] [address] 30on 07-06-2023 30 The patient is Moderately [...] Anion gap [Moles/Vol] 8 mmol/L Normal 7-20 [facility] Comment on above: Performed By: #### L [id number] #### [facility] ([facility]) [address] [place] [address] Calcium [Mass/Vol] 8.9 mg/dL Normal 8.6-10.3 [facility] Comment on above: Performed By: #### L [id number] #### [facility] ([facility]ER) [address] [place] [address] Chloride [Moles/Vol] 101 mmol/L Normal 98-107 [facility] Comment on above: Performed By: #### L [id number] #### [facility] ([facility]) [address] [place] [address] CO2 [Moles/Vol] 28 mmol/L Normal 21-31 [facility] Comment on above: Performed By: #### L [id number] #### [facility] ([facility]) [address] [place] [address] Creatinine [Mass/Vol] 0.95 mg/dL Normal 0.60-1.20 [facility] Comment on above: Performed By: #### L [id number] #### [facility] ([facility]) [address] [place] [address] GLOMERULAR FILTRATION RATE ML/MIN/1.73 SQ M.PREDICTED 64.5 [...] group of individuals. Performed By: #### L [id number] #### [facility] ([facility]) [address] [place] [address] Glucose [Mass/Vol] 164 mg/dL High 70-100 [facility] Comment on above: Performed By: #### L [id number] #### [facility] ([facility]) [address] [place] [address] Potassium [Moles/Vol] 3.7 mmol/L Normal 3.5-5.1 [facility] Comment on above: Performed By: #### L [id number] #### [facility] [address] [place] [address] Sodium [Moles/Vol] 133 mmol/L Low 136-145 [facility] Comment on above: Performed By: #### L [id number] #### [facility] ([facility]) [address] [place] [address] Urea nitrogen [Mass/Vol] 23 mg/dL Normal 7-25 [facility] Comment on above: Performed By: #### L [id number] #### [facility] ([facility]) [address] [place] [address] UREA NITROGEN/CREATININE (MASS RATIO) IN SER/PLAS 24.2 Normal [facility] Comment on above: Performed By: #### L [id number] #### [facility] ([facility]) [address] [place] [address] MAGNESIUMon 07-06-2023 Magnesium [Mass/Vol] 2.0 mg/dL Normal 1.9-2.7 [facility] Comment on above: Performed By: #### L [id number] ####[facility] ([facility])[address] [facility] [place] [address] POCT GLUCOSE METER UNSOLICIT ED RESULTSon 07-06-2023 Glucose [Mass/Vol] 203 mg/dL High 70-105 [facility] Comment on above: Order Comment: Waive d Testing in the ED is performed under the ED CLIA certificate #[id number]. Result Comment: [email or web address] Performed By: #### L [id number] #### [facility] ([facility]) [address] [place] [address] Glucose [Mass/Vol] 286 mg/dL High 70-105 [facility] Comment on above: Order Comment: Waive d Testing in the ED is performed under the ED CLIA certificate #[id number]. Result Comment: [email or web address] Performed By: #### L [id number] ####[facility] [place] [address] Glucose [Mass/Vol] 267 mg/dL High 70-105 [facility] Comment on above: Order Comment: Waive d Testing in the ED is performed under the ED CLIA certificate #[id number]. Result Comment: [email or web address] Performed By: #### L [id number] ####[facility] (BEAKER)[address] [place] [address] Glucose [Mass/Vol] 150 mg/dL High 70-105 [facility] Comment on above: Order Comment: Waive d Testing in the ED is performed under the ED CLIA certificate #[id number]. Result Comment: [email or web address] Performed By: #### L [id number] #### [facility] ([facility]) [address] [place] [address] 30on 07-05-2023 30 The patient is Moderately [...] [Mass/Vol] 3.0 g/dL Low 3.5-5.7 [facility] Comment on above: Performed By: #### L [id number] #### [facility] ([facility]) [address] [place] [address] ALP [Catalytic activity/Vol] 82 U/L Normal 34-104 [facility] Comment on above: Performed By: #### L [id number] #### [facility] ([facility]) [address] [place] [address] ALT [Catalytic activity/Vol] 15 U/L Normal 7-52 [facility] Comment on above: Performed By: #### L [id number] #### [facility] ([facility]) [address] [place] [address] Anion gap [Moles/Vol] 10 mmol/L Normal 7-20 [facility] Comment on above: Performed By: #### L [id number] #### [facility] ([facility]) [address] [place] [address] AST [Catalytic activity/Vol] 20 U/L Normal 13-39 [facility] Comment on above: Performed By: #### L [id number] #### [facility] ([facility]) [address] [place] [address] Bilirubin [Mass/Vol] 1.0 mg/dL Normal 0.3-1.0 [facility] Comment on above: Performed By: #### L [id number] #### [facility] ([facility]) [address] [place] [address] Calcium [Mass/Vol] 9.1 mg/dL Normal 8.6-10.3 [facility] Comment on above: Performed By: #### L [id number] #### [facility] [address] [place] [address] Chloride [Moles/Vol] 100 mmol/L Normal 98-107 [facility] Comment on above: Performed By: #### L [id number] #### [facility] ([facility]) [address] [place] [address] CO2 [Moles/Vol] 27 mmol/L Normal 21-31 [facility] Comment on above: Performed By: #### L [id number] #### [facility] ([facility]) [address] [place] [address] Creatinine [Mass/Vol] 0.76 mg/dL Normal 0.60-1.20 [facility] Comment on above: Performed By: #### L [id number] #### [facility] ([facility]) [address] [place] [address] GLOMERULAR FILTRATION RATE ML/MIN/1.73 SQ M.PREDICTED 84.2 [...] individuals. Performed By: #### L [id number] #### [facility] [address] [place] [address] Glucose [Mass/Vol] 87 mg/dL Normal 70-100 [facility] Comment on above: Performed By: #### L [id number] #### [facility] ([facility]) [address] [place] [address] Potassium [Moles/Vol] 3.4 mmol/L Low 3.5-5.1 [facility] Comment on above: Performed By: #### L [id number] #### [facility] ([facility]) [address] [place] [address] Protein [Mass/Vol] 4.9 g/dL Low 6.0-8.3 [facility] Comment on above: Performed By: #### L [id number] #### [facility] ([facility]) [address] [place] [address] Sodium [Moles/Vol] 134 mmol/L Low 136-145 [facility] Comment on above: Performed By: #### L [id number] #### [facility] ([facility]) [address] [place] [address] Urea nitrogen [Mass/Vol] 14 mg/dL Normal 7-25 [facility] Comment on above: Performed By: #### L [id number] #### [facility] ([facility]) [address] [place] [address] UREA NITROGEN/CREATININE (MASS RATIO) IN SER/PLAS 18.4 Normal [facility] Comment on above: Performed By: #### L [id number] #### [facility] ([facility]) [address] [place] [address] MAGNESIUMon 07-05-2023 Magnesium [Mass/Vol] 1.6 mg/dL Low 1.9-2.7 [facility] Comment on above: Performed By: #### L [id number] ####[facility] ([facility])[address] [place] [address] POCT GLUCOSE METER UNSOLICIT ED RESULTSon 07-05-2023 Glucose [Mass/Vol] 238 mg/dL High 70-105 [facility] Comment on above: Order Comment: Waive d Testing in the ED is performed under the ED CLIA certificate #[id number]. Result Comment: [email or web address] Performed By: #### L [id number] #### [facility] (BE[facility]ER) [address] [place] [address] Glucose [Mass/Vol] 283 mg/dL High 70-105 [facility] Comment on above: Order Comment: Waive d Testing in the ED is performed under the ED CLIA certificate #[id number]. Result Comment: [email or web address] [email or web address] Performed By: #### L [id number] #### [facility] ([facility]) [address] [place] [address] Glucose [Mass/Vol] 141 mg/dL High 70-105 [facility] Comment on above: Order Comment: Waive d Testing in the ED is performed under the ED CLIA certificate #[id number]. Result Comment: [email or web address] Performed By: #### L [id number] #### [facility] ([facility]) [address] [place] [address] Glucose [Mass/Vol] 103 mg/dL Normal 70-105 [facility] Comment on above: Order Comment: Waive d Testing in the ED is performed under the ED CLIA certificate #[id number]. Result Comment: [email or web address] [email or web address] Performed By: #### L [id number] #### [facility] ([facility]) [address] [place] [address] Glucose [Mass/Vol] 87 mg/dL Normal 70-105 [facility] Comment on above: Order Comment: Waive d Testing in the ED is performed under the ED CLIA certificate #[id number]. Result Comment: [email or web address] Performed By: #### L [id number] #### [facility] (BEAKER) [address] [place] [address] Glucose [Mass/Vol] 71 mg/dL Normal 70-105 [facility] Comment on above: Order Comment: Waive d Testing in the ED is performed under the ED CLIA certificate #[id number]. Result Comment: [email or web address] Performed By: #### L [id number] #### [facility] (BEAKER) [address] [place] [address] 30on 07-04-2023 30 Daily Case Managemen t [...] Health Types of Home Health Service needed [facility] Please indicate your approval for this care by adding your name here: ANGELIKA SANTOS 07/04/23 1216 07/02/23 2347 Inpatient consult to Social Work Once Provider: (Not yet assigned) Question Answer Comment Is discharge planning needed? If yes, who is requesting discharge planning? Provider Select all services needed for the patient [facility] Facility (30 day convalescent stay) Please indicate your approval for this care by adding your name here: IVORY GARRETT 07/02/23 2357 Therapy Orders (From admission, onward) Start Ordered 07/04/23 1215 MANAGER [employer]EW[employer]GY Bedside Swallow Eval and Treat (to determine safe diet level) Until therapy completed Comments: Bedside dysphagia screening exam Question Answer Comment Reason for MANAGER RENEWABLE ENERGY Consult? Dysphagia (swallowing, poor intake) Reason for MANAGER RENEW[employer] ENERGY Consult? Speech/language cognition Speech/language focus: Aphasia Speech/language focus: Dysarthria Can patient sit upright? Yes Does patient have a tracheostomy? No 07/04/23 1216 07/04/23 1215 MANAGER RENEWABLE ENERGY eval and treat Until therapy completed Question Answer Comment Reason for MANAGER RENEWABLE ENERGY Consult? Speech/language cognition Speech/language focus: Aphasia Speech/language [...] and behaviors that affect risk of falls [place] fall precautions as indicated by assessment The [...] 07-04-2023 Albumin [Mass/Vol] 3.0 g/dL Low 3.5-5.7 [facility] Comment on above: Performed By: #### L [id number] ####[facility] (BEAKER)[address] [place] [address] ALP [Catalytic activity/Vol] 74 U/L Normal 34-104 [facility] Comment on above: Performed By: #### L [id number] ####[facility] ([facility])[address] [place] [address] ALT [Catalytic activity/Vol] 19 U/L Normal 7-52 [facility] Comment on above: Performed By: #### L [id number] ####[facility] (BEAKER)[address] [place] [address] Anion gap [Moles/Vol] 6 mmol/L Low 7-20 [facility] Comment on above: Performed By: #### L [id number] ####[facility] (BEAKER)[address] [place] [address] AST [Catalytic activity/Vol] 17 U/L Normal 13-39 [facility] Comment on above: Performed By: #### L [id number] ####[facility] (BEAKER)[address] [place] [address] Bilirubin [Mass/Vol] 0.8 mg/dL Normal 0.3-1.0 [facility] Comment on above: Performed By: #### L [id number] ####[facility] (BEAKER)[address] [place] [address] Calcium [Mass/Vol] 9.4 mg/dL Normal 8.6-10.3 [facility] Comment on above: Performed By: #### L [id number] ####[facility] (BEAKER)[address] [place] [address] Chloride [Moles/Vol] 103 mmol/L Normal 98-107 [facility] Comment on above: Performed By: #### L [id number] ####[facility] (BEAKER)[address] [place] [address] CO2 [Moles/Vol] 30 mmol/L Normal 21-31 [facility] Comment on above: Performed By: #### L [id number] ####[facility] (BEAKER)[address] [place] [address] Creatinine [Mass/Vol] 0.65 mg/dL Normal 0.60-1.20 [facility] Comment on above: Performed By: #### L [id number] ####[facility] (BEAKER)[address] [place] [address] GLOMERULAR FILTRATION RATE ML/MIN/1.73 SQ M.PREDICTED 94.7 [...] of individuals. Performed By: #### L [id number] ####[facility] ([facility])[address] [place] [address] Glucose [Mass/Vol] 69 mg/dL Low 70-100 [facility] Comment on above: Performed By: #### L [id number] ####[facility] ([facility])[address] [place] [address] Potassium [Moles/Vol] 3.2 mmol/L Low 3.5-5.1 [facility] Comment on above: Performed By: #### L [id number] ####[facility] ([facility])[address] [place] [address] Protein [Mass/Vol] 5.0 g/dL Low 6.0-8.3 [facility] Comment on above: Performed By: #### L [id number] ####[facility] [place] [address] Sodium [Moles/Vol] 136 mmol/L Normal 136-145 [facility] Comment on above: Performed By: #### L [id number] ####[facility] (BEAKER)[address] [place] [address] Urea nitrogen [Mass/Vol] 17 mg/dL Normal 7-25 [facility] Comment on above: Performed By: #### L [id number] ####[facility] ([facility])[address] [place] [address] UREA NITROGEN/CREATININE (MASS RATIO) IN SER/PLAS 26.2 Normal [facility] Comment on above: Performed By: #### L [id number] ####[facility] ([place])[address] [place] [address] CONSULTon 07-04-2023 CONSULT --- Attestation signed by [...] acute heart failure exacerbation and COVID-positive at [facility]. Patient stated that she has [...] NSTEMI and congestive heart failure exacerbation. At [facility], BNP greater than 2717. [...] 183/87 -- -- (more content not included)... [facility] CONSULT --- Attestation signed by Elliott [...] an 72 y.o. female who came from [place] [facility] with N-STEMI, acute CHF exacerbation, KJ, covid positive obesity and CAD with 4 stents. Plavix stopped in August 2022. Cardiology is treating Pt for CHF exacerbation. Patient endorses chronic SOB but reports worsening prior to arrival to [place] [facility]. Was given Lasix 40 mg IV while at [facility]. +covid-19. Chest X-ray showed cardiomegaly with vascular [...] 80 mg oral Nightly 80 mg at 07/03/232144 carvedilol 6.25 mg oral BID 6.25 mg at 07/04/23901 dapagliflozin propanediol 10 mg oral Daily 10 mg at 07/04/23901 glucose 24 g oral q15 min PRN [...] lobe medially aerated IMPRESSION: Mild atrophy and tarp-yi-hdcfszqq chronic ischemic changes with no large acute [...] the distal vertebral artery bilaterally There is jcoy-zr-wctwptoo calcification in the distal left vertebral artery [...] viewed on a separate workstation. The [place] Symptomatic Carotid Endarterectomy Trial (NASCET) method for [...] reasonably achievable Electronically signed: Otto Mas. Normal [facility] MR [...] [Mass/Vol] 186 mg/dL High 70-105 [facility] Comment on above: Order Comment: Waive d Testing in the ED is performed under the ED CLIA certificate #[id number]. Result Comment: [email or web address] Performed By: #### L [id number] #### [facility] ([facility]) [address] [place] [address] Glucose [Mass/Vol] 69 mg/dL Low 70-105 [facility] Comment on above: Order Comment: Waive d Testing in the ED is performed under the ED CLIA certificate #[id number]. Result Comment: [email or web address] Performed By: #### L [id number] ####[facility] (BEAKER)[address] [place] [address] Glucose [Mass/Vol] 71 mg/dL Normal 70-105 [facility] Comment on above: Order Comment: Waive d Testing in the ED is performed under the ED CLIA certificate #[id number]. Result Comment: [email or web address] Performed By: #### L [id number] ####[facility] ([facility])[address] [place] [address] Glucose [Mass/Vol] 83 mg/dL Normal 70-105 [facility] Comment on above: Order Comment: Waive d Testing in the ED is performed under the ED CLIA certificate #[id number]. Result Comment: [email or web address] Performed By: #### L [id number] #### [facility] (BEAKER) [address] [place] [address] Glucose [Mass/Vol] 76 mg/dL Normal 70-105 [facility] Comment on above: Order Comment: Waive d Testing in the ED is performed under the ED CLIA certificate #[id number]. Result Comment: [email or web address] Performed By: #### L [id number] ####[facility] ([facility])[address] [place] [address] TROPONIN Ion 07-04-2023 Troponin I.cardiac [Mass/Vol] 0.10 ng/mL High 0.00-0.04 [facility] Comment on above: Performed By: #### L [id number] ####[facility] ([facility])[address] [place] [address] 30on 07-03-2023 30 Daily Case Managemen t [...] Select all services needed for the patient [facility] (30 day convalescent stay) Please indicate your approval for this care by adding your name here: IVORY GARRETT 07/02/23235607/02/232346 Consult to Nutrition Services Once Provider: (Not yet assigned) Question: Reason for Consult? Answer: NSTEMI/CHF 07/02/23 1141 Normal [facility] 30 [...] on above: Performed By: #### L [id number] ####[facility] ([facility])[address] [place] [address] CBC WITH AUTO DIFFERENTIALon 07-03-2023 Basophils (Bld) [#/Vol] 0.06 10*3/uL Normal 0.00-0.20 [facility] Comment on above: Performed By: #### L [id number] #### [facility] ([facility]) [address] [place] [address] Basophils/100 WBC (Bld) 0.7 % Normal 0.0-1.0 [facility] Comment on above: Performed By: #### L [id number] #### [facility] ([facility]) [address] [place] [address] Eosinophils (Bld) [#/Vol] 0.08 10*3/uL Normal 0.00-0.50 [facility] Comment on above: Performed By: #### L [id number] #### [facility] ([facility]) [address] [place] [address] Eosinophils/100 WBC (Bld) 0.9 % Normal 0.0-6.0 [facility] Comment on above: Performed By: #### L [id number] #### [facility] [address] [place] [address] Erythrocyte distribution width (RBC) [Ratio] 15.1 % High 11.5-15.0 [facility] Comment on above: Performed By: #### L [id number] #### [facility] ([facility]) [address] [place] [address] ERYTHROCYTE MEAN CORPUSCULAR HEMOGLOBIN CONCENTRATION (G/DL) BY AUTOMATED 31.9 g/dL Low 32.0-35.0 [facility] Comment on above: Performed By: #### L [id number] #### [facility] ([facility]) [address] [place] [address] Hematocrit (Bld) [Volume fraction] 39.8 % Normal 36.0-48.0 [facility] Comment on above: Performed By: #### L [id number] #### [facility] ([facility]) [address] [place] [address] Hemoglobin (Bld) [Mass/Vol] 12.7 g/dL Normal 12.0-15.0 [facility] Comment on above: Performed By: #### L [id number] #### [facility] ([facility]) [address] [place] [address] Immature granulocytes (Bld) [#/Vol] 0.03 10*3/uL Normal 0.00-0.20 [facility] Comment on above: Performed By: #### L [id number] #### [facility] ([facility]) [address] [place] [address] Immature granulocytes/100 WBC (Bld) 0.3 % Normal 0.0-1.0 [facility] Comment on above: Performed By: #### L [id number] #### [facility] ([facility]) [address] [place] [address] Lymphocytes (Bld) [#/Vol] 1.52 10*3/uL Normal 1.20-4.00 [facility] Comment on above: Performed By: #### L [id number] #### [facility] [address] [place] [address] Lymphocytes/100 WBC (Bld) 17.6 % Low 20.0-45.0 [facility] Comment on above: Performed By: #### L [id number] #### [facility] [address] [place] [address] MCH (RBC) [Entitic mass] 29.3 pg Normal 27.0-33.0 [facility] Comment on above: Performed By: #### L [id number] #### [facility] [address] [place] [address] MCV (RBC) [Entitic vol] 91.9 fL Normal 82.0-98.0 [facility] Comment on above: Performed By: #### L [id number] #### [facility] ([facility]) [address] [place] [address] Monocytes (Bld) [#/Vol] 1.20 10*3/uL High 0.10-1.00 [facility] Comment on above: Performed By: #### L [id number] #### [facility] ([facility]) [address] [place] [address] Monocytes/100 WBC (Bld) 13.9 % High 5.0-12.0 [facility] Comment on above: Performed By: #### L [id number] #### [facility] [address] [place] [address] Neutrophils (Bld) [#/Vol] 5.75 10*3/uL Normal 1.60-7.60 [facility] Comment on above: Performed By: #### L [id number] #### [facility] (BEAKER) [address] [place] [address] Neutrophils/100 WBC (Bld) 66.6 % Normal 40.0-72.0 [facility] Comment on above: Performed By: #### L [id number] #### [facility] (BE[facility]ER) [address] [place] [address] NRBC (PER 100 WBCS) BY AUTOMATED COUNT 0.0 % Normal 0 [facility] Comment on above: Performed By: #### L [id number] #### [facility] ([facility]) [address] [place] [address] PLATELETS (10*3/UL) IN BLOOD AUTOMATED COUNT 354 10*3/uL Normal 150-400 [facility] Comment on above: Performed By: #### L [id number] #### [facility] ([facility]) [address] [place] [address] RBC (Bld) [#/Vol] 4.33 10*6/uL Normal 3.80-5.00 [facility] Comment on above: Performed By: #### L [id number] #### [facility] ([facility]) [address] [place] [address] WBC (Bld) [#/Vol] 8.64 10*3/uL Normal 4.00-10.60 [facility] Comment on above: Performed By: #### L [id number] #### [facility] ([facility]) [address] [place] [address] COMPREHENSIVE METABOLIC PANE Agus 07-03-2023 Albumin [Mass/Vol] 3.5 g/dL Normal 3.5-5.7 [facility] Comment on above: Performed By: #### L [id number] ####[facility] ([facility])[address] [place] [address] ALP [Catalytic activity/Vol] 102 U/L Normal 34-104 [facility] Comment on above: Performed By: #### L [id number] ####[facility] ([facility])[address] [place] [address] ALT [Catalytic activity/Vol] 24 U/L Normal 7-52 [facility] Comment on above: Performed By: #### L [id number] ####[facility] ([facility])[address] [place] [address] Anion gap [Moles/Vol] 13 mmol/L Normal 7-20 [facility] Comment on above: Performed By: #### L [id number] ####[facility] ([facility] [place] [address] AST [Catalytic activity/Vol] 23 U/L Normal 13-39 [facility] Comment on above: Performed By: #### L [id number] ####[facility] ([facility] [place] [address] Bilirubin [Mass/Vol] 1.2 mg/dL High 0.3-1.0 [facility] Comment on above: Performed By: #### L [id number] ####[facility] ([facility] [place] [address] Calcium [Mass/Vol] 9.4 mg/dL Normal 8.6-10.3 [facility] Comment on above: Performed By: #### L [id number] ####[facility] ([facility] [place] [address] Chloride [Moles/Vol] 98 mmol/L Normal 98-107 [facility] Comment on above: Performed By: #### L [id number] ####[facility] [place] [address] CO2 [Moles/Vol] 27 mmol/L Normal 21-31 [facility] Comment on above: Performed By: #### L [id number] ####[facility] [place] [address] Creatinine [Mass/Vol] 0.71 mg/dL Normal 0.60-1.20 [facility] Comment on above: Performed By: #### L [id number] ####[facility] [place] [address] GLOMERULAR FILTRATION RATE ML/MIN/1.73 SQ M.PREDICTED 91.4 [...] of individuals. Performed By: #### L [id number] ####[facility] ([facility])[address] [place] [address] Glucose [Mass/Vol] 323 mg/dL High 70-100 [facility] Comment on above: Performed By: #### L [id number] ####[facility] ([facility])[address] [place] [address] Potassium [Moles/Vol] 3.6 mmol/L Normal 3.5-5.1 [facility] Comment on above: Performed By: #### L [id number] ####[facility] ([facility])[address] [place] [address] Protein [Mass/Vol] 6.0 g/dL Normal 6.0-8.3 [facility] Comment on above: Performed By: #### L [id number] ####[facility] ([facility])[address] [place] [address] Sodium [Moles/Vol] 134 mmol/L Low 136-145 [facility] Comment on above: Performed By: #### L [id number] ####[facility] [place] [address] Urea nitrogen [Mass/Vol] 11 mg/dL Normal 7-25 [facility] Comment on above: Performed By: #### L [id number] ####[facility] ([facility])[address] [place] [address] UREA NITROGEN/CREATININE (MASS RATIO) IN SER/PLAS 15.5 Normal [facility] Comment on above: Performed By: #### L [id number] ####[facility] [place] [address] HEMOGLOBIN A1Con 07-03-2023 Glucose [Mass/Vol] 263 mg/dL Normal [facility] Comment on above: Performed By: #### L [id number] #### [facility] ([facility] [address] [place] [address] HbA1c (Bld) [Mass fraction] 10.8 % High 4.0-6.0 [facility] Comment on above: Performed By: #### L [id number] #### [facility] ([facility]) [address] [place] [address] LIPID PANELon 07-03-2023 CHOL/HDL 2.7 mg/dL Normal [facility] Comment on above: Performed By: #### L [id number] #### [facility] ([facility]) [address] [place] [address] Cholesterol [Mass/Vol] 170 mg/dL Normal 120-200 [facility] Comment on above: Performed By: #### L [id number] #### [facility] ([facility]) [address] [place] [address] Magnesium [Mass/Vol] 105 mg/dL Normal 40-149 [facility] Comment on above: Result Comment: TRIG LYCERIDE REFERENCE RANGE: 20 YEARS AND OLDER CARDIOVASCULAR RISK LESS THAN 150 mg/dL LOW RISK 150 TO 199 mg/dL BORDERLINE RISK 200 mg/dL AND GREATER HIGH RISK Performed By: #### L [id number] #### [facility] [address] [place] [address] Magnesium [Mass/Vol] 87 mg/dL Normal 0-160 [facility] Comment on above: Performed By: #### L [id number] #### [facility] (BEAKER) [address] [place] [address] Magnesium [Mass/Vol] 62 mg/dL Normal 23-92 [facility] Comment on above: Performed By: #### L [id number] #### [facility] [address] [place] [address] NON HDL CHOL. (LDL+VLDL) 108 Normal [facility] Comment on above: Performed By: #### L [id number] #### [facility] ([facility]) [address] [facility] [place] [address] TOTAL VLDL-C 21 mg/dL Normal 0-40 [facility] Comment on above: Performed By: #### L [id number] #### [facility] ([facility]) [address] [facility] [address] MAGNESIUMon 07-03-2023 Magnesium [Mass/Vol] 1.9 mg/dL Normal 1.9-2.7 [facility] Comment on above: Performed By: #### L [id number] ####[facility] ([facility])[address] [place] [address] Magnesium [Mass/Vol] 1.4 mg/dL Low 1.9-2.7 [facility] Comment on above: Performed By: #### L [id number] ####[facility] ([facility])[address] [place] [address] NURSNOTEon 07-03-2023 NURSNOTE Covid swabbed patien t twice, both tests resulted in negative results. KENDALL Ford informed. Results entered in computer. Normal [facility] PHOSPHORUSon 07-03-2023 Magnesium [Mass/Vol] 2.7 mg/dL Normal 2.5-5.0 [facility] Comment on above: Performed By: #### L [id number] #### [facility] ([facility]) [address] [facility] [place] [address] POCT GLUCOSE METER UNSOLICIT ED RESULTSon 07-03-2023 Glucose [Mass/Vol] 116 mg/dL High 70-105 [facility] Comment on above: Order Comment: Waive d Testing in the ED is performed under the ED CLIA certificate #[id number]. Result Comment: [email or web address] Performed By: #### L [id number] #### [facility] ([facility]) [address] [place] [address] Glucose [Mass/Vol] 188 mg/dL High 70-105 [facility] Comment on above: Order Comment: Waive d Testing in the ED is performed under the ED CLIA certificate #[id number]. Result Comment: [email or web address] Performed By: #### L [id number] ####[facility] ([facility])[address] [place] [address] Glucose [Mass/Vol] 260 mg/dL High 70-105 [facility] Comment on above: Order Comment: Waive d Testing in the ED is performed under the ED CLIA certificate #[id number]. Result Comment: [email or web address] Performed By: #### L [id number] #### [facility] ([facility]) [address] [place] [address] Glucose [Mass/Vol] 425 mg/dL High 70-105 [facility] Comment on above: Order Comment: Waive d Testing in the ED is performed under the ED CLIA certificate #[id number]. Result Comment: [email or web address] Performed By: #### L [id number] #### [facility] ([facility]) [address] [place] [address] PROGRESSon 07-03-2023 SARS-CoV-2 (COVID-19) RNA GUS+probe Ql [...] for CR with NSTEMI dx. 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 Normal [facility] TROPONIN Ion 07-03-2023 Troponin I.cardiac [Mass/Vol] 0.12 ng/mL Critically high 0.00-0.04 [facility] Comment on above: Result Comment: M-TR OPONIN INITIAL CRITICAL HIGH; RESPUN AND RETESTED Performed By: #### L [id number] ####[facility] ([facility])[address] [place] [address] 30on 07-02-2023 30 The patient is Moderately Stable - Low risk of patient condition declining or worsening The patient's goals for the shift include COMFORT The clinical goals for the shift include VSS Normal [facility] XR lumbar spine AP/LAT/FLX/E XTon 03-13-2023 XR lumbar spine AP/LAT/FLX/EXT [facility] Main [address] [address] XRay Report Signed Patient: Laura Lawson MR#: [id number] : 1950 Acct:[id number] Age/Sex: 72 / F ADM Date: 03/13/23 Loc: XD Room: Type: [facility] Attending Dr: Abner Roa MD Copies to: [...] Amaury Devlin M.D.03/13/2023 3:02 PM Dictation Location: [place] [address] Transcribed By: [facility] 03/13/23 1502 Dictated By: Amaury Devlin DO 03/13/23 1500 Signed By: 03/13/23 1502 Normal [facility] MG MAMM SCREEN 3D YANETH CADon 11-06-2022 MG MAMM SCREEN 3D YANETH CAD Patient: LAURA LAWSON Exam Date: 11/06/2022 : 1950 Gender:F Ordering : DR VLAD CESAR M.D. Admission #: [id number] Family : Order #: [id number] CLICK HERE TO VIEW EXAM RADIOLOGY REPORT [...] No Treatments None Family Cancers None LOCATION: [facility] BREAST COMPOSITION: Scattered areas fibroglandular density. [...] Villanueva M.D. on 11/06/2022 at 16:56 Normal [facility] ECHOCARDIO M/2D COMPLETEon 1 07-18-2021 ECHOCARDIO M/2D COMPLETE Patient: LAURA LAWSON Exam Date: 05/17/2022 : 1950 Gender:F Ordering : DR VLAD CESAR M.D. Admission #: [id number] Family : DR JULITO ZENDEJAS M.D. Order #: [id number] CLICK HERE TO VIEW EXAM ECHOCARDIOGRAM REPORT [...] Zendejas M.D. on 05/17/2022 at 18:42 Normal [facility] CBC AUTO DIFFon 05-14-2022 BASO # 0.0 103/ul Normal 0.0-0.1 [facility] Comment on above: Performed By: #### C BC #### [facility] [address] [place] [address] [address] Hieu Horvath Basophils/100 WBC (Bld) 0.5 % Normal 0.2-2.0 [facility] Comment on above: Performed By: #### C BC #### [facility] [address] [place] [address] Dr. Hieu Horvath EO # 0.2 103/ul Normal 0.0-0.7 [facility] Comment on above: Performed By: #### C BC #### [facility] [address] [place] [address] Dr. Hieu Horvath Eosinophils/100 WBC (Bld) 2.5 % Normal 0.9-7.0 [facility] Comment on above: Performed By: #### C BC #### [facility] [address] [place] [address] Dr. Hieu Horvath Erythrocyte distribution width (RBC) [Ratio] 14.0 % Normal 11.0-15.0 [facility] Comment on above: Performed By: #### C BC #### [facility] [address] [place] [address] Dr. Hieu Horvath Hematocrit (Bld) [Volume fraction] 35.5 % Critically low 36.0-48.0 [facility] Comment on above: Performed By: #### C BC #### [facility] [address] [place] [address] Dr. Hieu Horvath Hemoglobin (Bld) [Mass/Vol] 11.5 g/dL Critically low 12.0-16.0 [facility] Comment on above: Performed By: #### C BC #### [facility] [address] [place] [address] Dr. Hieu Hovrath IG # 0.02 10e3/ul Normal 0.00-0.03 [facility] Comment on above: Performed By: #### C BC #### [facility] [address] [place] [address] Dr. Hieu Horvath IG % 0.2 % Normal 0.0-0.5 [facility] Comment on above: Performed By: #### C BC #### [facility] [address] [place] [address] Dr. Hieu Horvath LYMPH # 1.6 103/ul Normal 1.2-3.8 [facility] Comment on above: Performed By: #### C BC #### [facility] [address] [place] [address] Dr. Hieu Horvath Lymphocytes/100 WBC (Bld) 19.2 % Critically low 20.5-60.0 [facility] Comment on above: Performed By: #### C BC #### [facility] [address] [place] [address] Dr. Hieu Horvath MANUAL DIFF REQ NO Normal [facility] Comment on above: Performed By: #### C BC #### [facility] [address] [place] [address] Dr. Hieu Horvath MCH (RBC) [Entitic mass] 29.9 pg Normal 26.7-34.0 [facility] Comment on above: Performed By: #### C BC #### [facility] [address] [place] [address] Dr. Hieu Horvath MCHC (RBC) [Mass/Vol] 32.4 g/dL Normal 29.9-35.2 [facility] Comment on above: Performed By: #### C BC #### [facility] [address] [place] [address] Dr. Hieu Horvath MCV (RBC) [Entitic vol] 92.4 fL Normal 81.0-99.0 [facility] Comment on above: Performed By: #### C BC #### [facility] [address] [place] [address] Dr. Hieu Horvath MONO # 1.1 103/ul Critically high 0.3-0.8 [facility] Comment on above: Performed By: #### C BC #### [facility] [address] [place] [address] [address] Hieu Horvath Monocytes/100 WBC (Bld) 12.4 % Critically high 1.7-12. 0 [facility] Comment on above: Performed By: #### C BC #### [facility] [address] [address] [address] Hieu Horvath NEUT # 5.6 103/ul Normal 1.4-6.5 [facility] Comment on above: Performed By: #### C BC #### [facility] [address] [place] [address] Dr. Hieu Horvath Neutrophils/100 WBC (Bld) 65.2 % Normal 43.0-75.0 [facility] Comment on above: Performed By: #### C BC #### [facility] [address] [place] [address] Dr. Hieu Horvath Platelet mean volume (Bld) [Entitic vol] 8.9 fL Critically low 9.5-13.5 [facility] Comment on above: Performed By: #### C BC #### [facility] [address] [place] [address] Dr. Hieu Horvath PLT 342 103/ul Normal 150-450 [facility] Comment on above: Performed By: #### C BC #### [facility] [address] [place] [address] Dr. Hieu Horvath RBC 3.84 106/ul Critically low 4.20-5.40 [facility] Comment on above: Performed By: #### C BC #### [facility] [address] [place] [address] Dr. Hieu Horvath WBC 8.5 103/ul Normal 4.0-11.0 [facility] Comment on above: Performed By: #### C BC #### [facility] [address] [place] [address] Dr. Hieu Horvath CULTURE BLOODon 05-14-2022 Microscopic examination of blood, culture Culture Observations: NO GROWTH AT 5 DAYS. Normal [facility] Comment on above: Performed By: #### B [id number] #### [facility] [address] [place] [address] Dr. Hieu Horvath Performed By: #### B [id number] #### [facility] [address] [place] [address] Dr. Hieu Horvath LACTATE/LACTIC ACIDon 2021 Lactate [Moles/Vol] 1.8 mmol/L Normal 0.4-1.9 [facility] Comment on above: Performed By: #### L ACT #### [facility] [address] [place] [address] Dr. Hieu Horvath PROF CHEM 8 (BAS METB)on Anion gap [Moles/Vol] 10.3 mmol/L Normal [facility] Comment on above: Performed By: #### B MP #### [facility] [address] [place] [address] Dr. Hieu Horvath Calcium [Mass/Vol] 9.8 mg/dL Normal 8.5-10.1 [facility] Comment on above: Performed By: #### B MP #### [facility] [address] [place] [address] Dr. Hieu Horvath Chloride [Moles/Vol] 95 mmol/L Critically low 98-107 [facility] Comment on above: Performed By: #### B MP #### [facility] [address] [place] [address] Dr. Hieu Horvath CO2 [Moles/Vol] 31.4 mmol/L Normal 21.0-32.0 [facility] Comment on above: Performed By: #### B MP #### [facility] [address] [place] [address] Dr. Hieu Horvath Creatinine [Mass/Vol] 1.13 mg/dL Critically high 0.55-1.02 [facility] Comment on above: Performed By: #### B MP #### [facility] [address] [place] [address] Dr. Hieu Horvath EGFR-AF FIJIAN 58 mL/min/1.73m2 Critically low >=60 [facility] Comment on above: Performed By: #### B MP #### [facility] [address] [address] [address] Hieu Horvath EGFR-NON AF FIJIAN 48 mL/min/1.73m2 Critically low >=60 [facility] Comment on above: Performed By: #### B MP #### [facility] [address] [address] [address] Hieu Horvath Glucose [Mass/Vol] 370 mg/dL Critically high 74-106 [facility] Comment on above: Performed By: #### B MP #### [facility] [address] [address] [address] Hieu Horvath Potassium [Moles/Vol] 3.7 mmol/L Normal 3.5-5.1 [facility] Comment on above: Performed By: #### B MP #### [facility] [address] [address] [address] Hieu Horvath Sodium [Moles/Vol] 133 mmol/L Critically low 136-145 [facility] Comment on above: Performed By: #### B MP #### [facility] [address] [address] [address] Hieu Horvath Urea nitrogen [Mass/Vol] 29.0 mg/dL Critically high 7.0-18.0 [facility] Comment on above: Performed By: #### B MP #### [facility] [address] [address] [address] Hieu Horvath Urea nitrogen/Creatinine [Mass ratio] 25.7 mg/mg Normal [facility] Comment on above: Performed By: #### B MP #### [facility] [address] [address] [address] Hieu Horvath US JAKE DOP LEG RTon 05-14-20 US JKAE DOP LEG RT US JAKE DOP LEG [...] RUSSELL YATES Date: 2022-05-14 17:04 Normal [facility] Glucose Glucometer (BldC) [M ass/Vol]Ordered By: Chidi Bowen on 04-03-2022 Glucose [Mass/Vol] 187 mg/dL [facility] Comment on above: Random Glucose Refer ence Range is dependent on time and content of last meal. Glucose of more than 200 mg/dL in a nonstressed, ambulatory subject supports the diagnosis of Diabetes Mellitus. No Panel InformationOrdered By: Chidi Bowen on 04-03-2022 Bedside Glucose Comment Glu2: cleaned meter [facility] No Panel InformationOrdered By: Chidi Bowen on 03-28-2022 Bedside Glucose #[address]/rn [facility] Glucose mean value [Mass/vol ume] in Blood Estimated from glycated hemoglobinOrdered By: Tuyet Burks on 03-24-2022 Average glucose Estimated from glycated hemoglobin (Bld) [Mass/Vol] 203 mg/dL [facility] Hemoglobin A1c percentageOrd ered By: Tuyet Burks on 03-24-2022 HbA1c (Bld) [Mass fraction] 8.7 % 4.3-5.6 [facility] Comment on above: Increased risk for d iabetes: 5.7 - 6.4diabetes: >6.4glycemic control for adults with diabetes: <7.0 Albumin [Mass/volume] in Ser um or PlasmaOrdered By: Chidi Bowen on 03-23-2022 Albumin [Mass/Vol] 2.9 g/dL 3.2-5.5 [facility] Basophils Auto (Bld) [#/Vol] Ordered By: Chidi Bowen on 03-23-2022 Basophils (Bld) [#/Vol] 0.0 10*3/uL 0.0-0.2 [facility] Basophils/100 WBC Auto (Bld) Ordered By: Chidi Bowen on 03-23-2022 Basophils/100 WBC (Bld) 0.4 % . [facility] Creatinine and Glomerular fi ltration rate.predicted panel (S/P/Bld)Ordered By: Chidi Bowen on 03-23-2022 Creatinine [Mass/Vol] 0.97 mg/dL 0.44-1.03 [facility] Eosinophils Auto (Bld) [#/Vo l]Ordered By: Chidi Bowen on 03-23-2022 Eosinophils (Bld) [#/Vol] 0.1 10*3/uL 0.0-0.45 [facility] Eosinophils/100 WBC Auto (Bl d)Ordered By: Chidi Bowen on 03-23-2022 Eosinophils/100 WBC (Bld) 1.1 % . [facility] Erythrocyte distribution wid th Auto (RBC) [Ratio]Ordered By: Chidi Bowen on 03-23-2022 Erythrocyte distribution width (RBC) [Ratio] 14.2 % 11.9-15.3 [facility] Estimated glomerular filtrat ion rate (GFR) non- AmericanOrdered By: Chidi Bowen on 03-23-2022 GFR/1.73 sq M.predicted among non-blacks MDRD (S/P/Bld) [Vol rate/Area] 57 mL/Min [facility] Globulin Calc (S) [Mass/Vol] Ordered By: Chidi Bowen on 03-23-2022 Globulin (S) [Mass/Vol] 2.7 g/dL [facility] Hematocrit Auto (Bld) [Volum e fraction]Ordered By: Chidi Bowen on 03-23-2022 Hematocrit (Bld) [Volume fraction] 33.0 % 34.0-46.4 [facility] Hemoglobin [Mass/volume] in BloodOrdered By: Chidi Bowen on 03-23-2022 Hemoglobin (Bld) [Mass/Vol] 10.9 g/dL 11.8-15.4 [facility] - Hematology and Cell countsOrdered By: Chidi Bowen on 03-23-2022 Nucleated RBC/100 WBC (Bld) [Ratio] 0.1 % 0-0.5 [facility] Leukocytes [#/volume] in Blo od by Automated countOrdered By: Chidi Bowen on 03-23-2022 WBC (Bld) [#/Vol] 12.0 10*3/uL 4.5-11.0 [facility] Lymphocytes Auto (Bld) [#/Vo l]Ordered By: Chidi Bowen on 03-23-2022 Lymphocytes (Bld) [#/Vol] 1.8 10*3/uL 1.00-4.8 [facility] Lymphocytes/100 WBC Auto (Bl d)Ordered By: Chidi Bowen on 03-23-2022 Lymphocytes/100 WBC (Bld) 15.0 % . [facility] MCH Auto (RBC) [Entitic mass ]Ordered By: Chidi Bowen on 03-23-2022 MCH (RBC) [Entitic mass] 30.3 pg 24.7-34.3 [facility] MCHC Auto (RBC) [Mass/Vol]Or dered By: Chidi Bowen on 03-23-2022 MCHC (RBC) [Mass/Vol] 33.2 g/dL 32.0-35.0 [facility] MCV Auto (RBC) [Entitic vol] Ordered By: Chidi Bowen on 03-23-2022 MCV (RBC) [Entitic vol] 91.4 fL 80-100 [facility] Monocytes Auto (Bld) [#/Vol] Ordered By: Chidi Bowen on 03-23-2022 Monocytes (Bld) [#/Vol] 1.2 10*3/uL 0.0-0.8 [facility] Monocytes/100 WBC Auto (Bld) Ordered By: Chidi Bowen on 03-23-2022 Monocytes/100 WBC (Bld) 9.8 % . [facility] Neutrophils Auto (Bld) [#/Vo l]Ordered By: Chidi Bowen on 03-23-2022 Neutrophils (Bld) [#/Vol] 8.9 10*3/uL 1.8-7.7 [facility] Neutrophils/100 WBC Auto (Bl d)Ordered By: Chidi Bowen on 03-23-2022 Neutrophils/100 WBC (Bld) 73.7 % . [facility] No Panel InformationOrdered By: Chidi Bowen on 03-23-2022 Estimated GFR () > 60 mL/Min [facility] Comment on above: GFR estimated refere nce range: According to KDOQI guidelines, <60 ml/min/1.73m2 is sufficient to diagnose a patient with chronic kidney disease. Pharmacy Creatinine Clearance (Chem 67.19 [facility] Platelet mean volume Auto (B ld) [Entitic vol]Ordered By: Chidi Bowen on 03-23-2022 Platelet mean volume (Bld) [Entitic vol] 7.3 fL 6.3-10.7 [facility] Platelets Auto (Bld) [#/Vol] Ordered By: Chidi Bowen on 03-23-2022 Platelets (Bld) [#/Vol] 309 10*3/uL 150-450 [facility] Protein [Mass/volume] in Ser um or PlasmaOrdered By: Chidi Bowen on 03-23-2022 Protein [Mass/Vol] 5.6 g/dL 6.1-7.9 [facility] RBC Auto (Bld) [#/Vol]Ordere d By: Chidi Bowen on 03-23-2022 RBC (Bld) [#/Vol] 3.61 10*6/uL 3.60-5.00 [facility] Serum or plasma alanine ng otransferase measurement without P-5'-P (enzymatic activiOrdered By: Chidi Bowen on 03-23-2022 ALT No additional P-5'-P [Catalytic activity/Vol] 28 U/L 1060 [facility] Serum or plasma albumin/glob ulin mass ratioOrdered By: Chidi Bowen on 03-23-2022 Albumin/Globulin [Mass ratio] 1.1 {ratio} [facility] Serum or plasma alkaline areli sphatase measurement (enzymatic activity/volume)Ordered By: Chidi Bowen on 03-23-2022 ALP [Catalytic activity/Vol] 57 U/L 32-92 [facility] Serum or plasma anion gap de terminationOrdered By: Chidi Bowen on 03-23-2022 Anion gap [Moles/Vol] 10.9 mmol/L 6.0-15.0 [facility] Serum or plasma aspartate am inotransferase measurement (enzymatic activity/volume)Ordered By: Chidi Bowen on 03-23-2022 AST [Catalytic activity/Vol] 26 U/L 1042 [facility] Serum or plasma calcium annabel urement (mass/volume)Ordered By: Chidi Bowen on 03-23-2022 Calcium [Mass/Vol] 10.0 mg/dL 8.2-10.2 [facility] Serum or plasma chloride meagan surement (moles/volume)Ordered By: Chidi Bowen on 03-23-2022 Chloride [Moles/Vol] 100 mmol/L 95-114 [facility] Serum or plasma glucose annabel urement (mass/volume)Ordered By: Chidi Bowen on 03-23-2022 Glucose [Mass/Vol] 101 mg/dL 70-100 [facility] Comment on above: ADA recommended refe rence rangeRandom Glucose Reference Range is dependent on time and content of last meal. Glucose of more than 200 mg/dL in a nonstressed, ambulatory subject supports the diagnosis of Diabetes Mellitus. Serum or plasma potassium me asurement (moles/volume)Ordered By: Chidi Bowen on 03-23-2022 Potassium [Moles/Vol] 3.6 mmol/L 3.5-5.1 [facility] Serum or plasma prealbumin m easurement (mass/volume)Ordered By: Chidi Bowen on 03-23-2022 Prealbumin [Mass/Vol] 16.4 mg/dL 18.0-38.0 [facility] Serum or plasma sodium measu rement (moles/volume)Ordered By: Chidi Bowen on 03-23-2022 Sodium [Moles/Vol] 137 mmol/L 136-146 [facility] Serum or plasma total biliru bin measurement (mass/volume)Ordered By: Chidi Bowen on 03-23-2022 Bilirubin [Mass/Vol] 0.6 mg/dL 0.3-1.2 [facility] Serum or plasma total carbon dioxide measurement (moles/volume)Ordered By: Chidi Bowen on 03-23-2022 CO2 [Moles/Vol] 29.7 mmol/L 22.0-30.0 [facility] Serum or plasma urea nitroge n measurement (mass/volume)Ordered By: Chidi Bowen on 03-23-2022 Urea nitrogen [Mass/Vol] 46 mg/dL 9-23 [facility] Glucose Glucometer (BldC) [M ass/Vol]Ordered By: Abner Roa on 03-22-2022 Glucose [Mass/Vol] 183 mg/dL [facility] Comment on above: Random Glucose Refer ence Range is dependent on time and content of last meal. Glucose of more than 200 mg/dL in a nonstressed, ambulatory subject supports the diagnosis of Diabetes Mellitus. No Panel InformationOrdered By: Abner Roa on 03-22-2022 Bedside Glucose Comment Glu2: cleaned meter [facility] COVID-19 Positive/NegativeOr dered By: Abner Roa on 03-20-2022 SARS-CoV-2 (COVID-19) N gene GUS+probe Ql (Resp) Negative Negative [facility] Comment on above: Testing for SARS-CoV -2 by RT-PCRThis test was developed and its performance characteristics determined by [employer] (acquired by [employer] in 2014)) and validated at the [facility]. This test has not been FDA [...] 03-19-2022 Bedside Glucose #2 Comment Will notify /rn [facility] COVID-19 Positive/NegativeOr dered By: Abner Roa on 03-14-2022 SARS-CoV-2 (COVID-19) N gene GUS+probe Ql (Resp) Negative Negative [facility] Comment on above: Testing for SARS-CoV -2 by RT-PCRThis test was developed and its performance characteristics determined by [employer] (ac[employer] by [employer] in 2014[employer] and validated at the [facility]. This test has not been FDA [...] 03-05-2022 Basophils (Bld) [#/Vol] 0.0 10*3/uL 0.0-0.2 [facility] Basophils/100 WBC Auto (Bld) Ordered By: Abner Roa on 03-05-2022 Basophils/100 WBC (Bld) 0.4 % . [facility] Blood hemoglobin measurement (mass/volume)Ordered By: Abner Roa on 03-05-2022 Hemoglobin (Bld) [Mass/Vol] 11.8 g/dL 11.8-15.4 [facility] Blood leukocytes automated c ount (number/volume)Ordered By: Abner Roa on 03-05-2022 WBC (Bld) [#/Vol] 9.2 10*3/uL 4.5-11.0 [facility] Creatinine and Glomerular fi ltration rate.predicted panel (S/P/Bld)Ordered By: Abner Roa on 03-05-2022 Creatinine [Mass/Vol] 0.93 mg/dL 0.44-1.03 [facility] Eosinophils Auto (Bld) [#/Vo l]Ordered By: Abner Roa on 03-05-2022 Eosinophils (Bld) [#/Vol] 0.1 10*3/uL 0.0-0.45 [facility] Eosinophils/100 WBC Auto (Bl d)Ordered By: Abner Roa on 03-05-2022 Eosinophils/100 WBC (Bld) 1.4 % . [facility] Erythrocyte distribution wid th Auto (RBC) [Ratio]Ordered By: Abner Roa on 03-05-2022 Erythrocyte distribution width (RBC) [Ratio] 14.3 % 11.9-15.3 [facility] Estimated glomerular filtrat ion rate (GFR) non- AmericanOrdered By: Abner Roa on 03-05-2022 GFR/1.73 sq M.predicted among non-blacks MDRD (S/P/Bld) [Vol rate/Area] 60 mL/Min [facility] Hematocrit Auto (Bld) [Volum e fraction]Ordered By: Abner Roa on 03-05-2022 Hematocrit (Bld) [Volume fraction] 35.6 % 34.0-46.4 [facility] - Hematology and Cell countsOrdered By: Abner Roa on 03-05-2022 Nucleated RBC/100 WBC (Bld) [Ratio] 0.0 % 0-0.5 [facility] Lymphocytes Auto (Bld) [#/Vo l]Ordered By: Abner Roa on 03-05-2022 Lymphocytes (Bld) [#/Vol] 1.4 10*3/uL 1.00-4.8 [facility] Lymphocytes/100 WBC Auto (Bl d)Ordered By: Abner Roa on 03-05-2022 Lymphocytes/100 WBC (Bld) 15.4 % . [facility] MCH Auto (RBC) [Entitic mass ]Ordered By: Abner Roa on 03-05-2022 MCH (RBC) [Entitic mass] 30.4 pg 24.7-34.3 [facility] MCHC Auto (RBC) [Mass/Vol]Or dered By: Abner Roa on 03-05-2022 MCHC (RBC) [Mass/Vol] 33.2 g/dL 32.0-35.0 [facility] MCV Auto (RBC) [Entitic vol] Ordered By: Abner Roa on 03-05-2022 MCV (RBC) [Entitic vol] 91.7 fL 80-100 [facility] Monocytes Auto (Bld) [#/Vol] Ordered By: Abner Roa on 03-05-2022 Monocytes (Bld) [#/Vol] 0.8 10*3/uL 0.0-0.8 [facility] Monocytes/100 WBC Auto (Bld) Ordered By: Abner Roa on 03-05-2022 Monocytes/100 WBC (Bld) 9.2 % . [facility] Neutrophils Auto (Bld) [#/Vo l]Ordered By: Abner Roa on 03-05-2022 Neutrophils (Bld) [#/Vol] 6.8 10*3/uL 1.8-7.7 [facility] Neutrophils/100 WBC Auto (Bl d)Ordered By: Abner Roa on 03-05-2022 Neutrophils/100 WBC (Bld) 73.6 % . [facility] No Panel InformationOrdered By: Abner Roa on 03-05-2022 Estimated GFR () > 60 mL/Min [facility] Comment on above: GFR estimated refere nce range: According to KDOQI guidelines, <60 ml/min/1.73m2 is sufficient to diagnose a patient with chronic kidney disease. Pharmacy Creatinine Clearance (Chem N/A [facility] Platelet mean volume Auto (B ld) [Entitic vol]Ordered By: Abner Roa on 03-05-2022 Platelet mean volume (Bld) [Entitic vol] 7.5 fL 6.3-10.7 [facility] Platelets Auto (Bld) [#/Vol] Ordered By: Abner Roa on 03-05-2022 Platelets (Bld) [#/Vol] 285 10*3/uL 150-450 [facility] RBC Auto (Bld) [#/Vol]Ordere d By: Abner Roa on 03-05-2022 RBC (Bld) [#/Vol] 3.88 10*6/uL 3.60-5.00 [facility] Serum or plasma anion gap de terminationOrdered By: Abner Roa on 03-05-2022 Anion gap [Moles/Vol] 14.8 mmol/L 6.0-15.0 [facility] Serum or plasma calcium annabel urement (mass/volume)Ordered By: Abner Roa on 03-05-2022 Calcium [Mass/Vol] 10.1 mg/dL 8.2-10.2 [facility] Serum or plasma chloride meagan surement (moles/volume)Ordered By: Abner Roa on 03-05-2022 Chloride [Moles/Vol] 99 mmol/L 95-114 [facility] Serum or plasma glucose annabel urement (mass/volume)Ordered By: Abner Roa on 03-05-2022 Glucose [Mass/Vol] 206 mg/dL 70-100 [facility] Comment on above: ADA recommended refe rence rangeRandom Glucose Reference Range is dependent on time and content of last meal. Glucose of more than 200 mg/dL in a nonstressed, ambulatory subject supports the diagnosis of Diabetes Mellitus. Serum or plasma potassium me asurement (moles/volume)Ordered By: Abner Roa on 03-05-2022 Potassium [Moles/Vol] 4.5 mmol/L 3.5-5.1 [facility] Serum or plasma sodium measu rement (moles/volume)Ordered By: Abner Roa on 03-05-2022 Sodium [Moles/Vol] 136 mmol/L 136-146 [facility] Serum or plasma total carbon dioxide measurement (moles/volume)Ordered By: Abner Roa on 03-05-2022 CO2 [Moles/Vol] 26.7 mmol/L 22.0-30.0 [facility] Serum or plasma urea nitroge n measurement (mass/volume)Ordered By: Abner Roa on 03-05-2022 Urea nitrogen [Mass/Vol] 20 mg/dL 9-23 [facility] Diabetic Self Management Reji simon 03-17-2020 Diabetic Self Management Education [id number] CD:127 Normal [facility] Coding Summary.on 04-08-2019 Coding Summary. CODING DATE: 019 [facility] STATUS: PAYOR: Medicare ADMIT DX: [...] Theodore CphT Date Saved: 04/08/2019 02:24 pm [facility] Vital Signs Date Time Vital Sign Value Performing Clinician Facility 04-15-2024 16:01-0500 Body height 158.8 cm Narinder Meredith DPM Work Phone: [facility] 04-15-2024 16:01-0500 Body mass index (BMI) [Ratio] 42.48 kg/m2 Narinder Meredith DPM Work Phone: [facility] 04-15-2024 16:01-0500 Body weight 107.05 kg Narinder Greyson DPM Work Phone: [facility] 04-15-2024 16:01-0500 Diastolic blood pressure 75 mm[Hg] Narinder Meredith DPM Work Phone: [facility] 04-15-2024 16:01-0500 Heart rate 82 /min Narinder Greyson DPM Work Phone: [facility] 04-15-2024 16:01-0500 Systolic blood pressure 123 mm[Hg] Narinder Greyson DPM Work Phone: [facility] 04-08-2024 11:27-0400 Body height 162.[address] [facility] 04-08-2024 11:27-0400 Body mass index (BMI) [Ratio] 41.4 kg/m2 [facility] 04-08-2024 11:27-0400 Body weight 109.[address] [facility] 04-02-2024 11:01-0400 Body height 158.8 cm Vlad Cesar MD Work Phone: [facility] 04-02-2024 11:01-0400 Body mass index (BMI) [Ratio] 42.48 kg/m2 Vlad Cesar MD Work Phone: [facility] 04-02-2024 11:01-0400 Body weight 107.05 kg Vlad Cesar MD Work Phone: [facility] 04-02-2024 11:01-0400 Diastolic blood pressure 78 mm[Hg] Vlad Cesar MD Work Phone: [facility] 04-02-2024 11:01-0400 Heart rate 68 /min Vlad Cesar MD Work Phone: [facility] 04-02-2024 11:01-0400 SaO2% (BldA) [Mass fraction] 98 % Vlad Cesar MD Work Phone: [facility] 04-02-2024 11:01-0400 Systolic blood pressure 128 mm[Hg] Vlad Cesar MD Work Phone: [facility] 03-29-2024 14:08-0400 Diastolic blood pressure 76 mm[Hg] Nati Hemmer PA Work Phone: [facility] 03-29-2024 14:08-0400 Systolic blood pressure 138 mm[Hg] Nati Hemmer PA Work Phone: [facility] 03-29-2024 13:50-0400 Body height 158.8 cm Nati Hemmer PA Work Phone: [facility] 03-29-2024 13:50-0400 Body mass index (BMI) [Ratio] 42.55 kg/m2 Nati Hemmer PA Work Phone: [facility] 03-29-2024 13:50-0400 Body weight 107.23 kg Nati Hemmer PA Work Phone: [facility] 03-29-2024 13:50-0400 Heart rate 64 /min Nati Hemmer PA Work Phone: [facility] 03-29-2024 13:50-0400 Respiratory rate 16 /min Nati Hemmer PA Work Phone: [facility] 03-29-2024 13:50-0400 SaO2% (BldA) [Mass fraction] 98 % Nati Hemmer PA Work Phone: [facility] 03-15-2024 09:15-0400 Diastolic blood pressure 85 mm[Hg] Vlad Cesar MD Work Phone: [facility] 03-15-2024 09:15-0400 Heart rate 50 /min Vlad Cesar MD Work Phone: [facility] 03-15-2024 09:15-0400 Respiratory rate 17 /min Vlad Cesar MD Work Phone: [facility] 03-15-2024 09:15-0400 SaO2% (BldA) [Mass fraction] 98 % Vlad Cesar MD Work Phone: [facility] 03-15-2024 09:15-0400 Systolic blood pressure 130 mm[Hg] Vlad Cesar MD Work Phone: [facility] 01-08-2024 10:56-0400 Diastolic blood pressure 67 mm[Hg] Rachelle Contreras MD [facility] 01-08-2024 10:56-0400 Systolic blood pressure 155 mm[Hg] Rachelle Contreras MD [facility] 10-23-2023 10:33-0400 Body height 162.56 cm II Vlad Cesar Work Phone: [facility] 10-23-2023 10:33-0400 Body mass index (BMI) [Ratio] 38.6 kg/m2 II Vlad Cesar Work Phone: [facility] 10-23-2023 10:33-0400 Body weight 102 kg II Vlad Cesar Work Phone: [facility] 08-19-2023 11:27-0400 Body height 157.5 cm Robbi Uribe MD Work Phone: [facility] 08-19-2023 11:27-0400 Body mass index (BMI) [Ratio] 41.15 kg/m2 Robbi Uribe MD Work Phone: [facility] 08-19-2023 11:27-0400 Body weight 102.06 kg Robbi Uribe MD Work Phone: [facility] 08-19-2023 11:27-0400 Diastolic blood pressure 58 mm[Hg] Robbi Uribe MD Work Phone: [facility] 08-19-2023 11:27-0400 Heart rate 63 /min Robbi Uribe MD Work Phone: [facility] [employer] [facility] 08-19-2023 11:27-0400 Systolic blood pressure 149 mm[Hg] Robbi Uribe MD Work Phone: [facility] 07-21-2023 10:26-0500 Body height 158.8 cm Vlad Cesar MD Work Phone: [facility] 07-21-2023 10:26-0500 Body mass index (BMI) [Ratio] 41.22 kg/m2 Vlad Cesar MD Work Phone: [facility] [employer] 07-21-2023 10:26-0500 Body weight 103.87 kg Vlad Cesar MD Work Phone: [facility] 07-21-2023 10:26-0500 Diastolic blood pressure 82 mm[Hg] Vlad Cesar MD Work Phone: [facility] 07-21-2023 10:26-0500 Heart rate 66 /min Vlad Cesar MD Work Phone: [facility] 07-21-2023 10:26-0500 SaO2% (BldA) [Mass fraction] 98 % Vlad Cesar MD Work Phone: [facility] 07-21-2023 10:26-0500 Systolic blood pressure 136 mm[Hg] Vlad Cesar MD Work Phone: [facility] [employer] 03-13-2023 10:20-0400 Body height 162.56 cm Abner Roa Other [facility] Other 03-13-2023 10:20-0400 Body mass index (BMI) [Ratio] 45.83 kg/m2 Abner Roa Other [facility] Other 03-13-2023 10:20-0400 Body weight 121.11 kg Abner Roa Other [facility] Other 04-06-2023 10:40-0400 Body height 162.56 cm Abner Roa Other [facility] Other 09-12-2022 10:40-0400 Body mass index (BMI) [Ratio] 42.05 kg/m2 Abner Roa Other [facility] Other 09-12-2022 10:40-0400 Body weight 111.13 kg Abner Roa Other [facility] Other 09-12-2022 10:40-0400 Diastolic blood pressure 80 mm[Hg] Abner Roa Other [facility] Other 09-12-2022 10:40-0400 Systolic blood pressure 128 mm[Hg] Abner Roa Other [facility] Other 06-13-2022 16:20-0500 Body height 162.56 cm Abner Roa Other [facility] Other 06-13-2022 16:20-0500 Body mass index (BMI) [Ratio] 42.91 kg/m2 Abner Roa Other [facility] Other 06-13-2022 16:20-0500 Body weight 113.4 kg Abner Roa Other [facility] Other 04-18-2022 12:00-0500 Body height 162.56 cm Abner Roa Other [facility] Other 04-18-2022 12:00-0500 Body mass index (BMI) [Ratio] 42.74 kg/m2 Abner Roa Other [facility] Other 04-18-2022 12:00-0500 Body weight 112.95 kg Abner Roa Other [employer] Other 04-03-2022 13:01-0400 Body temperature 97.7 [degF] II Vlad Cesar Work Phone: [facility] 04-03-2022 13:01-0400 Diastolic blood pressure 66 mm[Hg] II Vlad Cesar Work Phone: [facility] 04-03-2022 13:01-0400 Heart rate 61 /min II Vlad Cesar Work Phone: [facility] 04-03-2022 13:01-0400 Respiratory rate 20 /min II Vlad Cesar Work Phone: [facility] 04-03-2022 13:01-0400 SaO2% (BldA) [Mass fraction] 96 % II Vlad Cesar Work Phone: [facility] 04-03-2022 13:01-0400 Systolic blood pressure 149 mm[Hg] II Vlad Cesar Work Phone: [facility] 04-03-2022 07:05-0400 Body height 160.02 cm II Vlad Cesar Work Phone: [facility] 03-31-2022 06:02-0400 Body weight 115.1 kg II Vlad Cesar Work Phone: [facility] 03-22-2022 14:02-0400 Diastolic blood pressure 73 mm[Hg] II Vlad Cesar Work Phone: [facility] 03-22-2022 14:02-0400 Systolic blood pressure 134 mm[Hg] II Vlad Cesar Work Phone: [facility] 03-22-2022 11:12-0400 Body temperature 97.6 [degF] II Vlad Cesar Work Phone: [facility] 03-22-2022 11:12-0400 Heart rate 66 /min II Vlad Cesar Work Phone: [facility] 03-22-2022 11:12-0400 Respiratory rate 16 /min II Vlad Cesar Work Phone: [facility] 03-22-2022 11:12-0400 SaO2% (BldA) [Mass fraction] 95 % II Vlad Cesar Work Phone: [facility] 03-22-2022 06:41-0400 Body weight 116 kg II Vlad Cesar Work Phone: [facility] 03-20-2022 17:30-0400 Inhaled oxygen flow rate 2 L/min II Vlad Cesar Work Phone: [facility] 03-19-2022 09:55-0400 Body height 160.02 cm II Vlad Cesar Work Phone: [facility] 03-18-2022 08:15-0400 Body mass index (BMI) [Ratio] 44.5 kg/m2 II Vlad Cesar Work Phone: [facility] 01-15-2022 14:40-0400 Body height 162.56 cm Abner Roa Other [facility] Other 01-15-2022 14:40-0400 Body mass index (BMI) [Ratio] 42.74 kg/m2 Abner Roa Other [facility] Other 01-15-2022 14:40-0400 Body weight 112.95 kg Abner Roa Other [facility] Other 12-07-2021 12:30-0400 Body height 162.56 cm Devang Saavedra Other [facility] Other 12-07-2021 12:30-0400 Body mass index (BMI) [Ratio] 42.74 kg/m2 Devang Saavedra Other [facility] Other 12-07-2021 12:30-0400 Body weight 112.95 kg Devang Saaverda Other [facility] Other 12-07-2021 12:30-0400 Diastolic blood pressure 76 mm[Hg] Devang Saavedra Other [facility] Other 12-07-2021 12:30-0400 Systolic blood pressure 132 mm[Hg] Devang Oliverky Other [facility] Other 12-06-2021 16:00-0400 Body height 162.56 cm Abner Roa Other [facility] Other 12-06-2021 16:00-0400 Body mass index (BMI) [Ratio] 43.59 kg/m2 Abner Roa Other [facility] Other 12-06-2021 16:00-0400 Body weight 115.21 kg Abner Roa Other [facility] Other 11-08-2021 17:15-0400 Body weight 115.21 kg Devang Saavedra Other [facility] Other 11-08-2021 17:15-0400 Diastolic blood pressure 72 mm[Hg] Devang Keri Other [facility] Other 11-08-2021 17:15-0400 SaO2% (BldA) [Mass fraction] 98 % Devang Oliverky Other [facility] Other 11-08-2021 17:15-0400 Systolic blood pressure 136 mm[Hg] Devang Keri Other [facility] Other 10-24-2021 17:15-0400 Body weight 115.21 kg Devang Saavedra Other [facility] Other 10-24-2021 17:15-0400 Diastolic blood pressure 70 mm[Hg] Devang Keri Other [facility] Other 10-24-2021 17:15-0400 Systolic blood pressure 116 mm[Hg] Devang Keri Other [facility] Other 10-15-2021 11:45-0400 Body weight 120.57 kg Devang Saavedra Other [facility] Other 10-15-2021 11:45-0400 Diastolic blood pressure 66 mm[Hg] Devang Saavedra Other [facility] Other 10-15-2021 11:45-0400 SaO2% (BldA) [Mass fraction] 93 % Devang Saavedra Other [facility] Other 10-15-2021 11:45-0400 Systolic blood pressure 124 mm[Hg] Devang Keri Other [facility] Other 09-25-2021 11:30-0400 Body weight 121.47 kg Devang Saavedra Other [facility] Other 09-25-2021 11:30-0400 Diastolic blood pressure 62 mm[Hg] Devang Keri Other [facility] Other 09-25-2021 11:30-0400 SaO2% (BldA) [Mass fraction] 97 % Devang Saavedra Other [facility] Other 09-25-2021 11:30-0400 Systolic blood pressure 138 mm[Hg] Devang Keri Other [facility] [employer] Other Encounters Encounter Date Encounter Type Care Provider Facility Start: 04-15-2024 End: 04-15-2024 ambulatory NARINDER MEREDITH Not Available Start: 04-15-2024 End: 04-15-2024 Patient encounter procedure Narinder Meredith DPM Work Phone: [facility] Comment on above: Diabetes mellitus du e to underlying condition with diabetic polyneuropathy, without long-term current use of insulin (CMS/[facility]) (Primary Dx); Pain due to onychomycosis of toenails of both feet; Peripheral venous insufficiency Start: 04-15-2024 End: 04-15-2024 Bamboo flowsheet Narinder Meredith DPM Work Phone: [facility] Start: 04-15-2024 End: 04-15-2024 Bamboo flowsheet Narinder Meredith DPM Work Phone: [facility] Start: 04-08-2024 End: 04-08-2024 ambulatory [facility] Work Phone: Start: 04-08-2024 End: 04-08-2024 Patient encounter procedure [facility] Work Phone: Start: 04-02-2024 End: 04-02-2024 Bamboo flowsheet Vlad Cesar MD Work Phone: [facility] Start: 04-02-2024 End: 04-02-2024 Bamboo flowsheet Vlad Cesar MD Work Phone: [facility] Start: 04-02-2024 End: 04-02-2024 ambulatory VLAD CESAR Not Available Start: 04-02-2024 End: 04-02-2024 Office outpatient visit 25 minutes Vlad Cesar MD Work Phone: [facility] Comment on above: Type 2 diabetes kwasi itus with hyperglycemia, with long-term current use of insulin (CMS/[facility]) (Primary Dx); Abnormal MRI, lumbar spine Start: 03-29-2024 End: 03-29-2024 Bamboo flowsheet Nati Christina PA Work Phone: [facility] Start: 03-29-2024 End: 03-29-2024 Bamboo flowsheet Nati Christina PA Work Phone: [facility] Start: 03-29-2024 End: 03-29-2024 Office outpatient visit 15 minutes Nati Christina PA Work Phone: [facility] Comment on above: Spinal stenosis of l umbar region without neurogenic claudication (Primary Dx); Right lumbar radiculopathy; Difficulty walking Start: 03-29-2024 End: 03-29-2024 ambulatory NATI CHRISTINA Not Available Start: 03-19-2024 End: 03-19-2024 Telephone encounter Arminda [...] radiculopathy; Muscle spasm Start: 03-09-2024 [facility] Start: 03-08-2024 End: 03-08-2024 ambulatory JOHN MCKAY Not Available Start: 03-08-2024 [facility] Start: 03-05-2024 End: 03-05-2024 ambulatory [facility] Start: 03-03-2024 End: 03-03-2024 ambulatory JAYDEN MARK Not Available Start: 03-02-2024 Office outpatient vi sit 25 minutes Hemant [facility] Start: 03-02-2024 ambulatory Hemant Nig[facility] Start: 03-01-2024 End: 03-01-2024 ambulatory VLAD CESAR Not Available Start: 02-26-2024 End: 02-26-2024 ambulatory JOHN NELY Not Available Start: 02-24-2024 End: 02-24-2024 ambulatory JOHN NELY Not Available Start: 02-18-2024 End: 02-18-2024 ambulatory JAYDEN MARK Not Available Start: 02-11-2024 End: 02-11-2024 ambulatory JOHN NELY Not Available Start: 02-05-2024 End: 02-05-2024 ambulatory NARINDER MEREDITH Not Available Start: 02-05-2024 End: 02-05-2024 ambulatory LORELEI ARCEOOMER Not Available Start: 02-03-2024 End: 02-03-2024 ambulatory JOHN NELY Not Available Start: 01-27-2024 End: 01-27-2024 ambulatory JOHN NELY Not Available Start: 01-26-2024 End: 01-26-2024 ambulatory VLAD CESAR Not Available Start: 01-22-2024 End: 01-22-2024 ambulatory JOHN NELY Not Available Start: 01-20-2024 End: 01-20-2024 ambulatory JOHN NELY Not Available Start: 01-14-2024 End: 01-14-2024 ambulatory JOHN NELY Not Available Start: 01-09-2024 End: 01-09-2024 ambulatory JOHN NELY Not Available Start: 01-08-2024 End: 01-08-2024 Rachelle Lucas Giuliamary carmen Work Phone: [facility] Start: 01-08-2024 ambulatory Rachelle Contreras [facility] Start: 01-07-2024 End: 01-07-2024 ambulatory JOHN NELY Not Available Start: 01-01-2024 End: 01-01-2024 ambulatory JAYDEN MARK Not Available Start: 12-30-2023 End: 12-30-2023 ambulatory JAYDEN MARK Not Available Start: 12-19-2023 End: 12-19-2023 ambulatory NATI CALHOUNMARTINA Not Available Start: 12-15-2023 End: 12-15-2023 ambulatory [facility] Start: 12-09-2023 End: 12-09-2023 May Jason Plattedy Work Phone: [facility] Start: 12-04-2023 End: 12-04-2023 ambulatory [facility] Start: 11-24-2023 End: 11-24-2023 ambulatory VLAD CESAR Not Available Start: 10-30-2023 End: 10-30-2023 Office outpatient new 45 minutes October Jason Contreras Work Phone: [facility] Start: 10-23-2023 End: 10-23-2023 ambulatory Abner Roa Facility:[facility] Start: 10-23-2023 End: 10-23-2023 ambulatory II Vlad Cesar Work Phone: [facility] Work Phone: Start: 10-23-2023 End: 10-23-2023 Patient encounter procedure II Vlad Cesar Work Phone: [facility] Work Phone: Start: 10-21-2023 End: 10-21-2023October Jason Plattednia Work Phone: [facility] Start: 10-14-2023 End: 10-14-2023 [facility] Start: 10-08-[facility]23 Evaluation and management of inpatient [facility] Start: 10-08-2023 ambulatory [facility] Start: 10-08-2023 End: 10-09-2023 Evaluation and management of inpatient [facility] Start: 10-01-2023 End: 10-01-2023 ambulatory MYA CISSE Not Available Start: 09-26-2023 End: 09-26-2023 ambulatory [facility]ULITO [facility] Start: 09-24-2023 End: 09-24-2023 ambulatory VLAD CESAR Not Available Start: 09-09-2023 Evaluation and management of inpatient JOSHAU GRIDER [facility] Start: 09-09-2023 ambulatory [facility] Start: 09-09-2023 End: 09-10-2023 Evaluation and management of inpatient RUPERTO GONZALES [facility] Start: 09-04-2023 Telephone encounter [facility] Comment on above: NEW PATIENT REFERRAL Start: 08-19-2023 End: 08-19-2023 Office outpatient visit 25 minutes Robbi Uribe MD Work Phone: [facility] Comment on above: TIA (transient ische bibi attack) (Primary Dx); Bilateral carpal tunnel syndrome Start: 08-19-2023 End: 08-19-2023 ambulatory [facility] Start: 07-31-2023 End: 07-31-2023 ambulatory [facility] Start: 07-21-2023 End: 07-21-2023 Transitional care manage srvc 14 day discharge Vlad Cesar MD Work Phone: [facility] Comment on above: COVID (Primary Dx); NSTEMI (non-ST elevated myocardial infarction) ([facility]); Acute on chronic diastolic heart failure ([facility]/HCC); Type 2 diabetes mellitus with hyperglycemia, with long-term current use of insulin ([facility]); 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); Morbid (severe) obesity due to excess calories (E66.01); Body mass index [BMI] 45.0-49.9, adult (Z68.42); Atherosclerosis of [place] coronary artery of [place] heart with angina pectoris (CMS/HCC) Start: 07-21-2023 End: 07-21-2023 ambulatory VLAD CESAR Not Available Start: 07-16-2023 End: 07-16-2023 ambulatory NIRAJ CHRISTIAN [facility] Start: 07-08-2023 Telephone encounter Tasha Girard RN [facility] Start: 07-07-2023 End: 07-07-2023 Evaluation and management of inpatient SHAWNA LEBLANC [facility] Start: 07-04-2023 Evaluation and management of inpatient ANGELIKA SANTOS [facility] Start: 07-04-2023 Evaluation and management of inpatient DALE DAVE [facility] Start: 07-04-2023 Evaluation and management of inpatient D[facility] Start: 07-03-2023 Evaluation and management of inpatient IVORY GARRETT [facility] Start: 07-02-2023 End: 07-07-2023 Evaluation and management of inpatient IVON LACY [facility] Start: 06-26-2023 End: 06-26-2023 ambulatory MYA CISSE Not Available Start: 06-25-2023 End: 06-25-2023 ambulatory VLAD CESAR Not Available Start: 04-21-2023 End: 04-21-2023 ambulatory VLAD CESAR Not Available Start: 03-13-2023 Office outpatient vi sit 15 minutes Abner Roa [facility] Start: 03-13-2023 End: 03-13-2023 ambulatory Abner Roa Facility:[facility] Start: 03-13-2023 End: 03-13-2023 ambulatory II Vlad eCsar Work Phone: [facility] Work Phone: Start: 03-13-2023 End: 03-13-2023 Patient encounter procedure II Vlad Cesar Work Phone: [facility] [place] Work Phone: Start: 12-12-2022 End: 12-12-2022 ambulatory Abner Roa Facility:[facility] Start: 11-06-[address] VLAD CESAR Facilit y:[facility] Start: 09-12-2022 Office outpatient vi sit 15 minutes Abner Roa [facility] Start: 09-12-2022 End: 09-12-2022 ambulatory II Vlad Cesar Work Phone: [facility] Work Phone: Start: 09-12-2022 End: 09-12-2022 Patient encounter procedure II Vlad Cesar Work Phone: [facility] [place] Work Phone: Start: 06-13-2022 End: 06-13-2022 Patient encounter procedure II Vlad Cesar Work Phone: [facility] [place] Work Phone: Start: 06-13-2022 End: 06-13-2022 ambulatory II Vlad Cesar Work Phone: [facility] Work Phone: Start: 06-13-2022 Postop follow up vis it related to original px Abner Roa [facility] Start: 05-17-2022 End: 05-18-[address] VLAD CESAR Facility:[facility] Start: 05-14-2022 End: 05-14-[address] VLAD CESAR Facility:[facility] Start: 05-09-2022 End: 05-09-2022 ambulatory II Vladjason Cesar Work Phone: [facility] Work Phone: Start: 05-09-2022 End: 05-09-2022 Discharged Recurring II Vlad Cesar Work Phone: [facility] [place] Work Phone: Start: 05-09-2022 Registered Recurring II Vladjason Cesar Work Phone: [facility] [place] Work Phone: Start: 04-18-2022 End: 04-18-2022 ambulatory Abner Roa Other [facility] [employer] Other Start: 04-18-2022 Postop follow up vis it related to original px Abner Roa [facility] Start: 04-09-2022 End: 04-09-2022 ambulatory II Vlad Cesar Work Phone: [facility] Work Phone: Start: 04-09-2022 End: 04-09-2022 Patient encounter procedure II Vlad Cesar Work Phone: [facility] [place] Start: 03-22-2022 End: 04-03-2022 Evaluation and management of inpatient II Vlad Cesar Work Phone: [facility] Start: 03-18-2022 Admission to [facility] Abner Janina [facility] Start: 03-18-2022 End: 03-18-2022 ambulatory Abner Janina Other [facility] [employer] Other Start: 03-18-2022 End: 03-22-2022 Evaluation and management of inpatient II Vlad Cesar Work Phone: [facility] [place] [facility] Start: 03-14-2022 End: 03-14-2022 ambulatory II Vlad Cesar Work Phone: [facility] Work Phone: Start: 03-14-2022 End: 03-14-2022 Patient encounter procedure II Vlad Cesar Work Phone: [facility] Start: 03-05-2022 End: 03-05-2022 ambulatory II Vlad Cesar Work Phone: [facility] Work Phone: Start: 03-05-2022 End: 03-05-2022 Patient encounter procedure II Vlad Cesar Work Phone: [facility] Start: 01-15-2022 End: 01-15-2022 ambulatory Abner Roa Other [facility] [employer] Other Start: 01-15-2022 Office outpatient vi sit 40 minutes Abner Roa [facility] Start: 01-09-2022 End: 01-09-2022 Patient encounter procedure MD Abner Roa Work Phone: [facility] Start: 01-07-2022 End: 01-07-2022 ambulatory Devang Keri Other [facility] Other Start: 01-07-2022 Telephone encounter Devang Keri [facility] Start: 01-03-2022 End: 01-03-2022 Patient encounter procedure MD Abner Roa Work Phone: [facility] [place] Start: 12-07-2021 End: 12-07-2021 ambulatory Devang Keri Other [facility] Other Start: 12-07-2021 Office outpatient vi sit 25 minutes Devang Keri [facility] [place] Start: 12-06-2021 End: 12-06-2021 ambulatory Abner Roa Other [facility] Other Start: 12-06-2021 Office outpatient ne w 30 minutes Abner Roa [facility] Start: 11-09-2021 End: 11-09-2021 ambulatory Abner Roa Other [facility] Other Start: 11-09-2021 Telephone encounter Abner Roa [facility] Start: 11-08-2021 End: 11-08-2021 ambulatory Devang Keri Other [facility] Other Start: 11-08-2021 Office outpatient vi sit 25 minutes Devang Keri [facility] Start: 10-24-2021 End: 10-24-2021 ambulatory Devang Keri Other [facility] Other Start: 10-24-2021 Office outpatient vi sit 25 minutes Devang Keri [facility] Start: 10-15-2021 End: 10-15-2021 ambulatory Devang Keri Other [facility] Other Start: 10-15-2021 Office outpatient vi sit 25 minutes Devang Saavedra [facility] Start: 10-04-2021 (Procedure) Short Devang Saavedra [facility] Start: 10-04-2021 End: 10-04-2021 ambulatory Devang Saavedra Other [facility] Other Start: 09-25-2021 End: 09-25-2021 ambulatory Devang Saavedra Other [facility] Other Start: 09-25-2021 Office outpatient ne w 45 minutes Devang Saavedra [facility] Start: 08-18-2018 End: 08-19-2018 Patient encounter procedure DEFAULT PHYSICIAN Facility:[facility] Start: 08-17-2018 End: 08-18-2018 Patient encounter procedure DEFAULT PHYSICIAN Facility:[facility] Procedures Date Procedure Procedure Detail Performing Clinician Start: 04-02-2024 Hemoglobin glycosylated a1c Vlda Cesar MD Work Phone: Start: 03-09-2024 Intravitreal njx pharmacologic agt spx Hemant Estrella Start: 03-09-2024 Vabysmo Prefilled Syringe Hemant Hernandez Start: 03-02-2024 Complex e/m visit add on Hemant Quarles Start: 03-02-2024 Computerized ophthalmic imaging retina Hemant Estrella Start: 01-08-2024 End: 01-08-2024 Computerized ophthalmic imaging retina May Jason Contreras MD Start: 01-08-2024 End: 01-08-2024 Eylea 1mg Pre-filled Syringe May Jason Contreras MD Start: 01-08-2024 Eylea 1mg Pre-filled Syringe Hemant Estrella Start: 01-08-2024 End: 01-08-2024 Intravitreal njx pharmacologic agt spx May Jason Contreras MD Start: 12-09-2023 End: 12-09-2023 Computerized ophthalmic imaging retina May Jason Contreras MD Start: 12-09-2023 End: 12-09-2023 Eylea 1mg Pre-filled Syringe May Jason Contreras MD Start: 12-09-2023 End: 12-09-2023 Intravitreal njx pharmacologic agt spx May Jason Contreras MD Start: 12-04-2023 Mammography Vlad Cesar MD Work Phone: Start: 10-30-2023 End: 10-30-2023 Computerized ophthalmic imaging retina May Jason Contreras MD Start: 10-30-2023 End: 10-30-2023 Eylea 1mg Pre-filled Syringe May Jason Contreras MD Start: 10-30-2023 End: 10-30-2023 Fundus Photos No Charge Bilateral May Jason Contreras MD Start: 10-30-2023 End: 10-30-2023 Intravitreal njx pharmacologic agt spx May Jason Contreras MD Start: 10-23-2023 X-ray of lumbar [...] Lateral Interbody Fusion (Not Applicable) II Vlad Cesar Work Phone: Start: 03-18-2022 X-ray of lumbar spine, two or three views MARK Cesar Work Phone: Start: 01-09-2022 Dual energy [...] carpal tunnel surgery of right wrist MARK Vlad Cesar Work Phone: Plan of Treatment Date Care Activity Detail Author Start: 12-14-2024 Adult BMI Screening Adult BMI Screening [employer] Start: 12-14-2024 Tobacco Screening Tobacco Screening [employer] Start: 12-06-2024 Influenza vaccination Influenza Vaccine (#1) [facility] Comment on above: Postponed from 02/08/2024 (Patient Refus ed) Start: 12-03-2024 Screening for malignant neoplasm of breast Mammogram [facility] Start: 10-08-2024 Urine screening for protein Diabetes: Urine Protein Screening [facility] Start: 08-18-2024 Adult BMI Screening Adult BMI Screening [employer] Start: 08-18-2024 [facility] Start: 08-18-2024 Tobacco Screening Tobacco Screening [employer] Start: 07-03-2024 Hemoglobin A1c measurement Diabetes: Hemoglobin A1C [facility] Start: 06-25-2024 Medicare Annual Wellness (AWV) Medicare Annual Wellness (AWV) [facility] Start: 06-25-2024 Pneumococcal Vaccine: 65+ Years (1 - PCV) Pneumococcal Vaccine: 65+ Years (1 - PCV) [facility] Comment on above: Postponed from 1958 (Patient Refus ed) Start: 06-25-2024 Pneumococcal Vaccine: 65+ Years (1 of 2 - PCV) Pneumococcal Vaccine: 65+ Years (1 of 2 - PCV) [facility] Comment on above: Postponed from 1958 (Patient Refus ed) Start: 06-25-2024 Screening for malignant neoplasm of colon Colorectal Cancer Screening [facility] Comment on above: Postponed from 1952 (Patient Refus ed) Start: 06-24-2024 End: 06-24-2024 Patient encounter procedure 06/24/2024 4:00 PM EST Office Visit [facility] [address] [facility] [address] [place] [phone] Narinder Meredith DPM [address] [facility] [address] [place] [address] [facility] Start: 06-17-2024 End: 06-17-2024 Patient encounter procedure 06/17/2024 10:30 AM EST Appointment [facility] Neuro[facility] [address] [place] [address] [address] [place] [address] [facility] Neuro[facility] Start: 06-15-2024 End: 06-15-2024 Patient encounter procedure 06/15/2024 11:00 AM EST Office Visit [facility] [address] [place] [phone] Casey العلي MD [address] [place] [address], [address], [address] [place] [phone] [facility] Start: 06-14-2024 End: 06-14-2024 Patient encounter procedure 06/14/2024 11:00 AM EST Office Visit [facility] [address] [facility] [address] [place] [phone] Vlad Cesar MD [address] [facility] [address] [place] [address] [facility] Start: 05-31-2024 Hemoglobin A1c measurement Diabetes: Hemoglobin A1C [facility] Start: 04-15-2024 End: 04-15-2024 Patient encounter procedure 04/15/2024 3:50 PM EST Office Visit [facility] [address] [address] [place] [address] Narinder Meredith DPM [address] [facility] [address] [place] [address] [facility] Start: 04-08-2024 Patient referral [facility] ed Center Work Phone: Start: 04-02-2024 End: 04-02-2024 Patient encounter procedure 04/02/2024 11:00 AM EDT Office Visit [facility] [address] [place] [address] Vlad Cesar MD [address] [facility] [address] [place] [address] [facility] Start: 03-29-2024 End: 03-29-2024 Patient encounter procedure 03/29/2024 2:00 PM EDT Office Visit [facility] [address] [facility] [address] [place] [address] Nati Christina PA [address] [place] [address] Arrived [facility] Comment on above: Arrived Start: 03-10-2024 Urine screening for protein Diabetes: Urine Protein Screening [facility] Start: 02-08-2024 Influenza vaccination [facility] Start: 02-05-2024 Laura Lawson 4wks Io Eyl Od [facility] Work Phone: Start: 12-15-2023 End: 12-15-2023 Patient encounter procedure 12/15/2023 11:00 AM EDT Office Visit [facility] [address] [place] [phone] Casey العلي MD [address] [place] [address], [address], [address], [address] [place] [address] [facility] Start: 12-07-2023 Influenza vaccination Influenza Vaccine (#1) [facility] Comment on above: Postponed from 02/07/2023 (Patient Refus ed) Start: 11-07-2023 Screening for malignant neoplasm of breast Mammogram [facility] Start: 10-25-2023 Glaucoma screening Diabetes: Retinopathy Screening [facility] Start: 10-21-2023 Smoking cessation education Tobacco cessation counseling [facility] Start: 10-02-2023 Hemoglobin A1c measurement Diabetes: Hemoglobin A1C [facility] Start: 09-24-2023 End: 09-24-2023 Patient encounter procedure 09/24/2023 11:00 AM EDT Office Visit [facility] [address] [place] [address] Vlad Cesar MD [address] [place] [address] [facility] Start: 09-23-2023 End: 09-23-2023 Patient encounter procedure 09/23/2023 1:00 PM EDT Procedure Visit [facility] [address] [place] [phone] Mya Cisse DPM [address] [place] [address] [facility] Start: 08-19-2023 End: 08-19-2023 Patient encounter procedure 08/19/2023 11:30 AM EDT Office Visit [facility] [address] [place] [phone] [place] [address] [place] [address], [address], [address] [place], [place] [phone] [facility] Start: 07-30-2023 End: 07-30-2023 Patient encounter procedure 07/30/2023 11:30 AM EST Office Visit [facility] [address] [place] [address] Vlad Cesar MD [address] [facility] [address] [place] [address] [facility] Start: 02-07-2023 Influenza vaccination Influenza Vaccine [facility] Start: 04-03-2022 [facility] Start: 03-22-2022 Hospital admission [facility] Start: 03-22-2022 Referral to clinical director operating [facility] Start: 03-21-2022 [facility] Start: 03-18-2022 Computer Assisted Procedure of [place] Start: 03-18-2022 Excision of Lumbar Vertebral Disc, Open Approach Excision of Lumbar Vertebral Disc, Open Approach [facility] Start: 03-18-2022 Fusion of 2 or more Lumbar Vertebral Joints with Interbody Fusion Device, Anterior Approach, Anterior Column, Open Approach Fusion of 2 or more Lumbar Vertebral Joints with Interbody Fusion Device, Anterior Approach, Anterior Column, Open Approach [facility] Start: 03-18-2022 Fusion of 2 or more Lumbar Vertebral Joints with Synthetic Substitute, Posterior Approach, Posterior Column, Open Approach Fusion of 2 or more Lumbar Vertebral Joints with Synthetic Substitute, Posterior Approach, Posterior Column, Open Approach [facility] Start: 03-18-2022 Introduction of Recombinant Bone Morphogenetic Protein into Joints, Open Approach Introduction of Recombinant Bone Morphogenetic Protein into Joints, Open Approach [facility] Start: 01-09-2022 Dual energy X-ray absorptiometry XR dexa axial skeleton [facility] Start: 01-09-2022 End: 01-09-2022 Patient encounter procedure Departed Clinical [facility] Start: 2017 Fall Risk Screening [facility] Start: 2002 Administration of varicella zoster vaccine Zoster (Shingles) Vaccine (1 of 2) [facility] Start: 11-24-1971 DTaP,Tdap and Td Vaccines (1 - Tdap) DTaP,Tdap and Td Vaccines (1 - Tdap) [facility] Start: 1970 Adult BMI Follow Up Plan Adult BMI Follow Up Plan [facility] Start: 1970 Adult BMI Screening Adult [facility] Screening [facility] Start: 1970 Diabetic foot examination Diabetic Foot Exam [facility] Start: 1964 Depression Screening Depression Screening [facility] Start: 1964 Tobacco Screening Tobacco Screening [facility] Start: 1952 Glaucoma screening Diabetic Ophthalmology Exam [facility] Start: 1952 Medicare Annual Wellness Visit Medicare Annual Wellness Visit [facility] Start: 1952 Screening for malignant neoplasm of colon [facility] MR Lumbar spine WO contrast MR lumbar spine wo contrast Imaging Routine Right lumbar radiculopathy Ordered: 03/15/2024 [facility] [employer] Work Phone: Comment on above: Ordered: 03/15/2024 Patient Education TLSO and LSO [facility] Work Phone: Patient referral [facility] Work Phone: [facility] Payers Date Payer Category Payer Self-pay [id number] 2022 Private Health Insurance [id number] 2017 Medicare [id number] 1959 Medicare [id number] 2.1 [id number] 1959 Private Health Insurance [id number] 2.16.840.1.274204.19 1952 Unknown [id number] 2.16.8 40.1.543970.3.579.2.647 1952 Unknown [id number] 2.16.8 40.1.901840.3.579.2.647 1952 Unknown [id number] 2.16.84 0.1.052674.3.579.2.593 1952 Unknown [id number] 2.16.84 0.1.051570.3.579.2.593 1952 Unknown [id number] 2.16.84 0.1.002705.3.579.2.593 1952 Unknown [id number] 2.16.8 40.1.624636.3.579.2.1286 1952 Unknown [id number] 2.16.8 40.1.324461.3.579.2.1286 1952 Unknown [id number] 2.16.840 .1.954103.3.579.2.1347 1952 Unknown [id number] 2.16.840 .1.628228.3.579.2.1347 1952 Unknown [id number] 2.16.840 .1.872157.3.579.2.1347 1952 Unknown [id number] 2.16.840. 1.578029.3.579.2.1347 1952 Unknown [id number] 2.16.84 0.1.010010.3.579.2.1259 1952 Unknown [id number] 2.16.84 0.1.427864.3.579.2.1259 1952 Unknown [id number] 2.16.84 0.1.738157.3.579.2.1259 1952 Unknown [id number] 2.16.84 0.1.610185.3.579.2.1259 1952 Unknown [id number] 2.16.84 0.1.653416.3.579.2.1259 1952 Unknown [id number] 2.16.84 0.1.695008.3.579.2.1259 1952 Unknown [id number] 2.16.84 0.1.966320.3.579.2.1259 1952 Unknown [id number] 2.16.84 0.1.291801.3.579.2.9 1952 Unknown [id number] 2.16.84 0.1.068278.3.579.2.9 1952 Unknown [id number] 2.16.84 0.1.653203.3.579.2.9 1952 Unknown [id number] 2.16.84 0.1.484869.3.579.2.1258 1952 Unknown [id number] 2.16.84 0.1.842812.3.579.2.1258 1952 Unknown [id number] 2.16.84 0.1.904368.3.579.2.9 1952 Unknown [id number] 2.16.84 0.1.412301.3.579.2.1258 1952 Unknown [id number] 2.16.84 0.1.767785.3.579.2.9 1952 Unknown [id number] 2.16.84 0.1.232869.3.579.2.1258 1952 Unknown [id number] 2.16.84 0.1.560583.3.579.2.9 1952 Unknown [id number] 2.16.84 0.1.867838.3.579.2.1258 1952 Unknown [id number] 2.16.84 0.1.717768.3.579.2.9 1952 Unknown [id number] 2.16.84 0.1.911755.3.579.2.1258 1952 Unknown [id number] 2.16.84 0.1.171479.3.579.2.9 1952 Unknown [id number] 2.16.84 0.1.724733.3.579.2.9 1952 Unknown [id number] 2.16.84 0.1.573508.3.579.2.1259 1952 Unknown [id number] 2.16.84 0.1.541871.3.579.2.1259 1952 Unknown [id number] 2.16.84 0.1.425835.3.579.2.1259 1952 Unknown [id number] 2.16.84 0.1.803616.3.579.2.1259 1952 Unknown [id number] 2.16.84 0.1.248834.3.579.2.1259 1952 Unknown [id number] 2.16.84 0.1.102474.3.579.2.1259 1952 Unknown [id number] 2.16.84 0.1.608711.3.579.2.1259 1952 Unknown [id number] 2.16.84 0.1.470743.3.579.2.1259 1952 Unknown [id number] 2.16.840. 1.276201.3.579.2.1259 Unknown Unknown [id number] 2.16.8 40.1.677444.3.579.2.531 Unknown [id number] 2.16.8 40.1.270325.3.579.2.531 Unknown [id number] 2.16.8 40.1.588599.3.579.2.531 Social History Date Type Detail Facility Start: 01-12-2023 End: 02-23-2024 Sex Assigned At [facility] Start: 1950 Sex Assigned At Female F [facility] Start: 03-05-2022 End: 12-20-2022 Tobacco smoking status FLIS Never smoked tobacco (finding) [facility] Tobacco smoking stat us [facility] Tobacco smoking consumption unknown [facility] Start: 1950 Sex Assigned At Not on file P [facility] Start: 12-20-2022 End: 08-19-2023 Tobacco use and exposure Smokeless tobacco non-user [facility] Start: 07-21-2023 End: 04-15-2024 Alcohol intake Lifetime non-drinker (finding) [facility] Start: 01-12-2023 End: 02-23-2024 History of Social function [facility] Within [...] 08-19-2023 End: 12-15-2023 Alcohol intake Ex-drinker (finding) [facility] Start: 01-08-2024 Health-related behav ior (observable entity) Caffeine Use Details [facility] Start: 01-08-2024 Tobacco use and exposure Non-Smoking Tobacco Use Details [facility] Do you belong to any clubs or organizations such as religion groups, unions, fraternal or athletic groups, or [...] XLIF Bone-screw internal spinal fixation system, non-sterile +[id number] FDA Start: 03-18-2022 Fusion, spine, lumbar, XLIF Orthopaedic bone screw, non-bioabsorbable, non-sterile +[id number] FDA Start: 03-18-2022 Fusion, spine, lumbar, XLIF Orthopaedic instrument surgical connector [id number] FDA Start: 03-18-2022 Fusion, spine, lumbar, XLIF Bone-screw internal spinal fixation system, non-sterile [id number] FDA Start: 03-18-2022 Fusion, spine, lumbar, XLIF STRATOFUSE DBM [id number] FDA Start: 03-18-2022 Fusion, spine, lumbar, XLIF Spinal fusion graft kit ([id number] FDA Start: 03-18-2022 Fusion, spine, lumbar, XLIF Metallic spinal fusion cage, non-sterile ()[id number] FDA Start: 03-18-2022 Fusion, spine, lumbar, XLIF Metallic spinal fusion cage, non-sterile ()[id number] FDA Start: 03-18-2022 Fusion, spine, lumbar, XLIF [...] XLIF STRATOFUSE DBM 5CC FDA Start: 03-18-2022 [id number] Start: 11-29-2022 1 each by Other route in the morning and 1 each at noon and 1 each in the evening and 1 each before bedtime. Take before meals. ONE TOUCH ULTRA STRIPS DX: e11.65. [id number] Start: 07-09-2023 Inject under the skin 2 (two) times a day. Use as instructed [id number] 2 (two) times a day. Use as instructed [id number] USE DIRECTED UNDER THE SKIN TWO TIMES DAILY [id number] Start: 11-24-2023 1 each by Other route in the morning and 1 each in the evening and 1 each before bedtime. ONE TOUCH ULTRA STRIPS DX: e11.65. [id number] Start: 03-01-2024 USE DIRECTED ONCE DAILY [id number] Start: 08-07-2023 Goals Date Patient Goal Desired Activity /State Functional Status Date Assessment Result Facility 04-03-2022 Functional status Patient is Pro gressing Toward Baseline [facility] Work Phone: 03-22-2022 Functional status Patient is Pro gressing Toward Baseline [facility] Work Phone: 03-18-2022 Functional status Patient at Baseline [facility] Work Phone: 03-05-2022 Functional status Disability Sta tus Patient at Baseline [facility] Work Phone: Mental Status Date Assessment Result Facility 04-03-2022 Cognitive function Cognitive Sta tus Patient at Baseline [facility] Work Phone: 03-22-2022 Cognitive function Cognitive Sta tus Patient at Baseline [facility] Work Phone: 03-18-2022 Cognitive function Cognitive Sta tus Patient at Baseline [facility] Work Phone: Clinical Notes 09-25-2021 to 04-15-2024 Narinder Meredith DPM - 04/15/2024 3:50 PM Sanna Cesar MD - 04/02/2024 11:00 AM HOLLEY Valdivia - 03/29/2024 2:00 PM EDTTelephone Encounter - Arminda AMINA Christianson - 03/19/2024 10:33 AM EDT Note Date & Type Note Facility 04-15-2024 History of Present illness Narrative Patient: Laura Lawson : 1950 PCP: Vlad Cesar MD SUBJECTIVE This is a 73 y.o. female that presents today with a CC of elongated, thick nails. Pt states nails have been elongated and thick for many years and cause pain with ambulation in shoegear. Pt has tried previous treatment with minimal relief. Pt presents today for nail care and treatment. Patient is type 2 diabetic with peripheral neuropathy Pt also has history of venous stasis to b/l lower extremities. Allergies: Allergies Allergen Reactions Gabapentin Palpitations Tramadol Other Past Medical History: Past Medical History: Diagnosis Date Angiomyolipoma of kidney Arthritis Unknown COPD (chronic obstructive pulmonary disease) ([facility]/HCC) Coronary artery disease (CAD) excluded Diabetes ([facility]/HCC) GERD (gastroesophageal reflux disease) Gout Hyperlipidemia ([facility]/HCC) Hypertension ([facility]/HCC) Kidney stones Obesity Sleep apnea Thyroid disease ([facility]/HCC) Type 2 diabetes mellitus ([facility]) Umbilical hernia without obstruction and without gangrene Medications: Current Outpatient Medications: allopurinol (Zyloprim) 300 MG tablet, TAKE 1 TABLET DAILY, Disp: 100 tablet, Rfl: 3 aspirin 81 MG EC tablet, Take 81 mg by mouth in the morning., Disp: , Rfl: atorvastatin (Lipitor) 80 MG tablet, Take 80 mg by mouth Daily, Disp: , Rfl: baclofen (Lioresal) 10 MG tablet, Take 1 tablet (10 mg) by mouth in the morning and 1 tablet (10 mg) before bedtime., Disp: 200 tablet, Rfl: 2 BD Insulin Syringe U/F 31G X 16 1 ML misc, USE DIRECTED UNDER THE SKIN TWO TIMES DAILY, Disp: 180 each, Rfl: 3 candesartan (Atacand) 32 MG tablet, TAKE 1 TABLET DAILY, Disp: 90 tablet, Rfl: 3 carvedilol (Coreg) 6.25 MG tablet, TAKE 1 TABLET IN THE MORNING AND IN THE EVENING. TAKE WITH MEALS, Disp: 200 tablet, Rfl: 3 clopidogrel (Plavix) 75 MG tablet, Take 1 tablet (75 mg) by mouth in the morning., Disp: 90 tablet, Rfl: 0 [facility] Clotrimazole 3 2 % vaginal cream, INSERT 1 APPLICATORFUL VAGINALLY AT BEDTIME FOR 5 NIGHTS, Disp: , Rfl: dapagliflozin (Farxiga) 10 MG, TAKE 1 TABLET DAILY, Disp: 100 tablet, Rfl: 3 dulaglutide (Trulicity) 3 MG/0.5ML solution pen-injector, Inject 3 mg under the skin 1 (one) time per week, Disp: 4 each, Rfl: 11 ezetimibe (Zetia) 10 MG tablet, Take 1 tablet (10 mg) by mouth in the morning., Disp: 30 tablet, Rfl: 11 glucose blood test strip, 1 each by Other route in the morning and 1 each in the evening and 1 each before bedtime. ONE TOUCH ULTRA STRIPS DX: e11.65., Disp: 100 each, Rfl: 1 HANDICAP PLACARD 5 YEAR, 5 Units by Other route in the morning. 5 Year Duration for Handicap Placard., Disp: 1 Units, Rfl: 4 hydrALAZINE (Apresoline) 25 MG tablet, Take 25 mg by mouth in the morning and 25 mg before bedtime., Disp: , Rfl: Insulin Lispro (HumaLOG) 100 UNIT/ML solution, Inject 25 Units under the skin in the morning and 25 Units at noon and 25 Units in the evening. Inject before meals., Disp: , Rfl: insulin pen needle (BD Pen Needle Cass 2nd Gen) 32G x 4 mm misc, USE DIRECTED ONCE DAILY, Disp: 100 each, Rfl: 3 insulin syringe-needle U-100 31G X 5/16 0.5 mL misc, Inject under the skin 2 (two) times a day. Use as instructed, Disp: , Rfl: Klayesta [id number] UNIT/GM powder, Apply 1 application topically in the morning and 1 application before bedtime., Disp: , Rfl: meloxicam (Mobic) 15 MG tablet, TAKE 1 TABLET DAILY WITH FOOD, Disp: 90 tablet, Rfl: 3 nitroglycerin (Nitrostat) 0.3 MG SL tablet, Place 0.3 mg under the tongue every 5 (five) minutes if needed for chest pain., Disp: , Rfl: omeprazole (PriLOSEC) [address] capsule, TAKE 1 CAPSULE DAILY 30 MINUTES BEFORE MORNING MEAL, Disp: 90 capsule, Rfl: 3 pen needle 31G x 6 mm misc, 2 (two) times a day. Use as instructed, Disp: , Rfl: potassium chloride CR (Klor-Con M20) 20 MEQ ER tablet, Take 20 mEq by mouth in the morning and 20 mEq before bedtime. Do not crush or chew.., Disp: , Rfl: sacubitril-valsartan (Entresto) 49-51 MG tablet, Take 1 tablet by mouth in the morning and 1 tablet before bedtime., Disp: 200 tablet, Rfl: 3 spironolactone (Aldactone) 25 MG tablet, , Disp: , Rfl: tiZANidine (Zanaflex) 4 MG tablet, Take 1 tablet (4 mg) by mouth every 6 (six) hours if needed for muscle spasms, Disp: 30 tablet, Rfl: 1 torsemide (Demadex) 20 MG tablet, Take 1 tablet (20 mg) by mouth in the morning and 1 tablet (20 mg) in the evening. Take before meals., Disp: , Rfl: Toujeo Max SoloStar 300 UNIT/ML injection, Inject 100 Units under the skin in the morning., Disp: , Rfl: Social History: Social History Socioeconomic History Marital status: Unmarried Spouse name: Not on file Number of children: 0 Years of education: Not on file Highest education level: Not on file Occupational History Not on file Tobacco Use Smoking status: Never Smokeless tobacco: Never Vaping Use Vaping status: Never Used Substance and Sexual Activity Alcohol use: Never Comment: Caffeine: 1-2 cups per day Drug use: Never Sexual activity: Not Currently Partners: Female control/protection: Other Other Topics Concern Not on file Social History Narrative Not on file Social Drivers of Health Financial Resource Strain: Low Risk (02/23/2024) Overall Financial Resource Strain (CARDIA) Difficulty of Paying Living Expenses: Not hard at all Food Insecurity: No Food Insecurity (02/23/2024) Hunger Vital Sign Worried About Running Out of Food in the Last Year: Never true Ran Out of Food in the Last Year: Never true Transportation Needs: No Transportation Needs (02/23/2024) PRAPARE - Transportation Lack of Transportation (Medical): No Lack of Transportation (Non-Medical): No Physical Activity: Inactive (02/23/2024) Exercise Vital Sign Days of Exercise per Week: 0 days Minutes of Exercise per Session: 0 min Stress: No Stress Concern Present (02/23/2024) [employer] [place] [employer] - Occupational Stress Questionnaire Feeling of Stress : Not at all Social Connections: Moderately Isolated (02/23/2024) Social Connection and Isolation Panel [NHANES] Frequency of Communication with Friends and Family: More than three times a week Frequency of Social Gatherings with Friends and Family: Once a week Attends Baptism Services: Never Active Member of Clubs or Organizations: Yes Attends Club or Organization Meetings: 1 to 4 times per year Marital Status: Never Intimate Partner Violence: Unknown (10/08/2023) [facility] from [facility] Humiliation, Afraid, Rape, and Kick questionnaire Fear of Current or Ex-Partner: No Emotionally Abused: Not on file Physically Abused: Not on file Sexually Abused: Not on file Housing Stability: Unknown (02/23/2024) Housing Stability Vital Sign Unable to Pay for Housing in the Last Year: No Number of Times Moved in the Last Year: Not on file Homeless in the Last Year: No ROS: Gastrointestinal: denies abdominal pain, ulcers, or changes in appetite or bowel habits Musculoskeletal: Positive generalized arthritis to joints and denies loss of strength. Cardiovascular: denies CP, palpitations, irregular rhythms OBJECTIVE LE EXAM: DERM: Elongated thick yellow crumbly nails digits 1 through 10. Diminished hair growth b/l feet. +1 pitting edema to bilateral ankles VASC: Negative PT and DP pulses bilaterally NEURO: 5.07 [place] Avi monofilament test diminished to digits and forefoot bilaterally 125Hz tuning fork diminished to 1st MPJ bilaterally ORTHO: Positive pain on palpation to nails 1 through 10 ASSESSMENT 1. Diabetes mellitus due to underlying condition with diabetic polyneuropathy, without long-term current use of insulin ([facility]) 2. Pain due to onychomycosis of toenails of both feet 3. Peripheral venous insufficiency PLAN Discussed proper foot care with patient today. Debride nails in length and thickness digits 1 through 10 Visit spent with patient education on condition and treatment of condition. Patient to keep feet elevated when nonweightbearing Narinder Meredith DPM documented in this encounter [facility] 04-02-2024 History of Present illness Narrative Images from the original note were not included. Subjective Patient ID: Laura Lawson is a 73 y.o. female who presents for Diabetes. Diabetes Mellitus Patient presents for follow up of diabetes. Current symptoms include: hyperglycemia. Patient denies foot ulcerations, hypoglycemia , nausea, paresthesia of the feet, visual disturbances, and vomiting. Evaluation to date has included: fasting blood sugar, fasting lipid panel, and hemoglobin A1C. Home sugars: BGs range between 225 and 275 Diabetes Pertinent negatives for diabetes include no chest pain and no fatigue. Current Outpatient Medications on File Prior to Visit Medication Sig Dispense Refill allopurinol (Zyloprim) 300 MG tablet TAKE 1 TABLET DAILY 100 tablet 3 aspirin 81 MG EC tablet Take 81 mg by mouth in the morning. atorvastatin (Lipitor) 80 MG tablet Take 80 mg by mouth Daily baclofen (Lioresal) 10 MG tablet Take 1 tablet (10 mg) by mouth in the morning and 1 tablet (10 mg) before bedtime. 200 tablet 2 BD Insulin Syringe U/F 31G X 5/16 [...] times a day. Use as instructed Klayesta [id number] UNIT/GM powder Apply 1 application topically in [...] tablet 3 spironolactone (Aldactone) 25 MG tablet tiZANidine (Zanaflex) 4 MG tablet Take 1 tablet (4 mg) by mouth every 6 (six) hours if needed for muscle spasms 30 tablet 1 torsemide (Demadex) 20 MG tablet Take 1 tablet (20 mg) by mouth in the morning and 1 tablet (20 mg) in the evening. Take before meals. Toujeo Max SoloStar 300 UNIT/ML injection Inject 100 Units under the skin in the morning. [DISCONTINUED] tiZANidine (Zanaflex) 4 MG tablet Take 1 tablet (4 mg) by mouth every 6 (six) hours if needed for muscle spasms for up to 10 days 30 tablet 0 No current facility-administered medications on file prior to visit. I have reviewed and reconciled the history and medication list with the patient today. Allergies Allergen Reactions Gabapentin Palpitations Tramadol Other Social History Tobacco Use Smoking status: Never Smokeless tobacco: Never Vaping Use Vaping status: Never Used Substance Use Topics Alcohol use: Never Comment: Caffeine: 1-2 cups per day Drug use: Never Family History Problem Relation Name Age of Onset Other (GERD disease) Mother Skin cancer Mother Other (myocardial infarction) Father Sen Lawson Diabetes Father Sen Lawson Hypertension Father Sen Lawson Heart disease Father Sen Lawson No Known Problems Sister Cancer Maternal Grandfather Deep Brice teri Cancer Mother's Sister Cherelle Naidu Diabetes Father's Sister Nancy Logan Past [...] Laterality Date APPENDECTOMY BI MAMMOGRAM DIAGNOSTIC BILATERAL 2013 CARPAL TUNNEL RELEASE CORONARY ANGIOPLASTY WITH STENT PLACEMENT 2013 CT ANGIO HEAD 07/04/2023 CT ANGIO HEAD 07/04/2023 CT ANGIOGRAM NECK 07/04/2023 CT ANGIOGRAM NECK 07/04/2023 EYE EXAM 2013 Disease:Diabetes mellitus, type 2 HERNIA REPAIR [place] ARTHRD ANT INTERBODY MIN DSC LUMBAR 03/18/2022 L3-L5 Anterior Lumbar Interbody Fusion, Pedicle Screw Replacement SPINE SURGERY [id number] THYROIDECTOMY TOTAL VAGINAL HYSTERECTOMY Visit Vitals BP 128/78 Pulse 68 Ht 5' 2.5 Wt 236 lb SpO2 98% BMI 42.48 kg/m Smoking Status Never BSA 2.17 m Review of Systems Constitutional: Negative for fatigue. Cardiovascular: Negative for chest pain. Objective Physical Exam Constitutional: General: She is [...] and Affect: Mood normal. Behavior: Behavior normal. Office Visit on 04/02/2024 Component Date Value Ref Range Status Hemoglobin A1C 04/02/2024 8.9 Final Assessment/Plan Diagnoses and all orders for this visit: Type 2 diabetes mellitus with hyperglycemia, with long-term current use of insulin ([facility]) - POCT Glycated hemoglobin, total - Improving. No med change today. Recheck in 2 months. Abnormal MRI, lumbar spine - Has f/up with Dr Roa. Bone edema in L2, ? Cause. Follow up in about 2 months (around 06/02/2024) for DM- A1C. documented in this encounter [facility] 03-29-2024 History of Present illness Narrative Images from the original note were not included. HPI Med Refill Additional comments: Tizanidine Last edited by Shannan Villanueva LPN on 03/29/2024 1:49 PM. Subjective Patient ID: Laura Lawson is a 73 y.o. female who presents for lumbar pain. Laura is present today for follow up Lumbar pain. She was seen by Dr. Cesar on 03/15/24 and an MRI was ordered. She is present today to go over results of the MRI. Dr. Cesar did rx Tizanidine and it did help some. States her back is still very painful. Usually sits with a heating pad on her back. Had trouble sitting back up after the MRI. Does have an appointment scheduled with Dr. Roa for a follow up appointment, though is not sure when. Current Outpatient Medications on File Prior to Visit Medication Sig Dispense Refill allopurinol (Zyloprim) 300 MG tablet TAKE 1 TABLET DAILY 100 tablet 3 aspirin 81 MG EC tablet Take 81 mg by mouth in the morning. atorvastatin (Lipitor) 80 MG tablet Take 80 mg by mouth Daily baclofen (Lioresal) 10 MG tablet Take 1 tablet (10 mg) by mouth in the morning and 1 tablet (10 mg) before bedtime. 200 tablet 2 BD Insulin Syringe U/F 31G X 5/16 [...] times a day. Use as instructed Klayesta [id number] UNIT/GM powder Apply 1 application topically in [...] under the skin in the morning. [DISCONTINUED] tiZANidine (Zanaflex) 4 MG tablet Take 1 tablet (4 mg) by mouth every 6 (six) hours if needed for muscle spasms for up to 10 days 30 tablet 0 No current facility-administered medications on file prior to visit. I have reviewed and reconciled the history and medication list with the patient today. Allergies Allergen Reactions Gabapentin Palpitations Tramadol Other Social History Tobacco Use Smoking status: Never Smokeless tobacco: Never Vaping Use Vaping status: Never Used Substance Use Topics Alcohol use: Never Comment: Caffeine: 1-2 cups per day Drug use: Never Family History Problem Relation Name Age of Onset Other (GERD disease) Mother Skin cancer Mother Other (myocardial infarction) Father Sen Lawson Diabetes Father Sen Lawson Hypertension Father Sen Lawson Heart disease Father eSn Lawson No Known Problems Sister Cancer Maternal Grandfather Deep williamson Cancer Mother's Sister Cherelle Naidu Diabetes Father's Sister Nancy Logan Past [...] 2013 Disease:Diabetes mellitus, type 2 HERNIA REPAIR [place] ARTHRD ANT INTERBODY MIN DSC LUMBAR 03/18/2022 L3-L5 Anterior Lumbar Interbody Fusion, Pedicle Screw Replacement SPINE SURGERY [id number] THYROIDECTOMY TOTAL VAGINAL HYSTERECTOMY Visit Vitals BP 138/76 (BP Location: Left arm) Pulse 64 Resp 16 Ht 5' 2.5 Wt 236 lb 6.4 oz SpO2 98% BMI 42.55 kg/m Smoking Status Never BSA 2.17 m Review of Systems Constitutional: Negative for chills, fatigue and fever. Respiratory: Negative for cough, shortness of breath and wheezing. Cardiovascular: Negative for chest pain, palpitations and leg swelling. Gastrointestinal: Negative for abdominal pain, constipation, diarrhea, nausea and vomiting. Musculoskeletal: Positive for back pain and gait problem. Skin: Negative for rash. Objective Physical Exam Constitutional: General: She is [...] Markedly tender over right SI joint and bilateral lower lumbar region, pain with going from seated to standing position. Skin: General: Skin is warm and dry. Neurological: General: No focal deficit present. Mental Status: She is alert and oriented to person, place, and time. Gait: Gait abnormal. Comments: Using rolling walker for ambulation. Psychiatric: Mood and Affect: Mood normal. Behavior: Behavior normal. Assessment/Plan Diagnoses and all orders for this visit: Spinal stenosis of lumbar region without neurogenic claudication MRI reviewed in detail with patient. She continues to have significant back pain. She will follow up with Dr. Roa, who did her initial surgery, as scheduled. Right lumbar radiculopathy - tiZANidine (Zanaflex) 4 MG tablet; Take 1 tablet (4 mg) by mouth every 6 (six) hours if needed for muscle spasms Refill provided on the above for her to continue to use as needed. Difficulty walking Will send a copy of pt's MRI results to Dr. Roa. Follow up for Appointment As Scheduled. documented in this encounter [facility] 03-19-2024 Miscellaneous Notes Per last ov note, patient is to be called in 6 months and see how she is doing. Patient states she is doing great; she is currently following up with Dr. Gomez for carpel tunnel. She wishes to follow up as needed. She is to call if there are any questions or concerns. Closing note. documented in this encounter [facility] 03-19-2024 Telephone encounter Note Per last ov note, patient is to be called in 6 months and see how she is doing. Patient states she is doing great; she is currently following up with Dr. Gomez for carpel tunnel. She wishes to follow up as needed. She is to call if there are any questions or concerns. Closing note. [facility] 03-15-2024 History of Present illness Narrative Images [...] Daily BD Insulin Syringe U/F 31G X 16 [...] times a day. Use as instructed Klayesta [id number] UNIT/GM powder Apply 1 application topically in [...] Known Problems Sister Cancer Maternal Grandfather Deep williamson Cancer Mother's Sister Cherelle Naidu Diabetes Father's Sister Nancy Logan Past [...] 2013 Disease:Diabetes mellitus, type 2 HERNIA REPAIR [place] ARTHRD ANT INTERBODY MIN DSC LUMBAR 03/18/2022 L3-L5 Anterior Lumbar Interbody Fusion, Pedicle Screw Replacement SPINE SURGERY [id number] THYROIDECTOMY TOTAL VAGINAL HYSTERECTOMY Visit Vitals BP [...] for After MRI. documented in this encounter [facility] 03-05-2024 Note [place] Cardiology - [facility] Subjective Laura Lawson is a [...] due to type 2 diabetes mellitus (CMS/HCC) nursing home current use of insulin (CMS/HCC) Low back pain Morbid obesity (CMS/HCC) Neoplasm of uncertain behavior of kidney Obstructive sleep apnea syndrome Osteoarthritis of knee Osteoporosis Peripheral venous insufficiency Polyneuropathy due to type 2 diabetes mellitus ([facility]) Preoperative evaluation to rule out surgical contraindication Pulmonary function studies abnormal Pure hypercholesterolemia Renal mass Skin sensation disturbance Type 2 diabetes mellitus without complication ([facility]) Umbilical hernia Uric acid nephrolithiasis NSTEMI (non-ST elevated myocardial infarction) ([facility]) Acute exacerbation of CHF (congestive heart failure) ([facility]) COVID-19 Acquired spondylolisthesis Acute on chronic diastolic heart failure ([facility]) Coronary artery disease (CAD) excluded Diastolic dysfunction GERD (gastroesophageal reflux disease) History of carpal tunnel surgery of right wrist Hyperlipidemia Impaired mobility and endurance Localized edema Lumbar radiculopathy Morbid obesity with body mass index (BMI) of 45.0 to 49.9 in adult ([facility]) Paresthesia of skin Primary osteoarthritis of both knees S/P drug eluting coronary stent placement Ulcer of foot due to type 2 diabetes mellitus ([facility]) Pericardial effusion 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 Bilateral [facility] Physicians Work Phone: 1(973) 244-378908-01-2024 History of Present illness Narrative* Encounter Date [...] did not change her last glasses RX. [facility] Phys[facility] Work Phone: [phone]) 336-651408-01-2024 Instructions* Date Instruction Additional Infor dmitri Impression/Plan [...] edema, associated with type 2 diabetes mellitus [facility] Work Phone: [phone]) 830-884406-27-2024 NoteUT Cardiology [facility] Subjective Laura Lawson is a [...] essential hypertension Cerebrovascular disease Chronic foot ulcer ([facility]/HCC) Coronary atherosclerosis Decreased estrogen level Diabetic retinopathy associated with type 2 diabetes mellitus ([facility]/HCC) Diaphragmatic hernia Difficulty walking Dyspnea on exertion Generalized osteoarthritis Gout History of arthritis History of hysterectomy Hyperglycemia due to type 2 diabetes mellitus ([facility]/HCC) nursing home current use of insulin ([facility]/HCC) Low back pain Morbid obesity ([facility]/HCC) Neoplasm of uncertain behavior of kidney Obstructive sleep apnea syndrome Osteoarthritis of knee Osteoporosis Peripheral venous insufficiency Polyneuropathy due to type 2 diabetes mellitus ([facility]/HCC) Preoperative evaluation to rule out surgical contraindication Pulmonary function studies abnormal Pure hypercholesterolemia Renal mass Skin sensation disturbance Type 2 diabetes mellitus without complication ([facility]/HCC) Umbilical hernia Uric acid nephrolithiasis NSTEMI (non-ST elevated myocardial infarction) ([facility]/HCC) Acute exacerbation of CHF (congestive heart failure) ([facility]/HCC) COVID-19 Acquired spondylolisthesis Acute on chronic diastolic heart failure ([facility]/HCC) Coronary artery disease (CAD) excluded Diastolic dysfunction GERD (gastroesophageal reflux disease) History of carpal tunnel surgery of right wrist Hyperlipidemia Impaired mobility and endurance Localized edema Lumbar radiculopathy Morbid obesity with body mass index (BMI) of 45.0 to 49.9 in adult ([facility]) Paresthesia of skin Primary osteoarthritis of both knees S/P drug eluting coronary stent placement Ulcer of foot due to type 2 diabetes mellitus (CMS/HCC) Pericardial effusion 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 Coronary artery disease Coronary artery disease involving catawba coronary artery of catawba heart with other form of angina pectoris ([facility]/HCC) Chronic systolic heart failure ([facility]) Combined forms of age-related cataract of both eyes History of lumbar fusion Nonexudative age-related macular degeneration Thyroid disease Family History Problem Relation Name Age of Onset ROD disease Mother Heart attack Father Social History Tobacco Use Smoking status: Never Smokeless tobacco: Never Substance Use Topics Alcohol use: Not Currently HPI Luara is seen in follow-up. She is a [...] [facility] SUBJECTIVE Chief Complaint Patient presents with [...] due to type 2 diabetes mellitus (CMS/HCC) nursing home current use of insulin (CMS/HCC) Low back [...] Acute exacerbation of CHF (congestive heart failure) ([facility]) COVID-19 Acquired spondylolisthesis Acute on chronic diastolic heart failure ([facility]) Coronary artery disease (CAD) excluded Diastolic dysfunction GERD (gastroesophageal reflux disease) History of carpal tunnel surgery of right wrist Hyperlipidemia Impaired mobility and endurance Localized edema Lumbar radiculopathy Morbid obesity with body mass index (BMI) of 45.0 to 49.9 in adult ([facility]) Paresthesia of skin Primary osteoarthritis of both knees S/P drug eluting coronary stent placement Ulcer of foot due to type 2 diabetes mellitus ([facility]) Pericardial effusion 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 Coronary artery disease Coronary artery disease involving catawba coronary artery of catawba heart with other form of angina pectoris ([facility]) Chronic systolic heart failure ([facility]) Past Medical History: Diagnosis Date Abnormal ECG CHF (congestive heart failure) ([facility]) Coronary artery disease Diabetes mellitus ([facility]) Gout Hypertension Myocardial infarction ([facility]) Sleep apnea Family History Problem Relation Name [...] Yes Does the patient have a case management specialist assigned to them through their insurance? No [...] able to send link and activate MyChart? [facility] NotePatient: Laura Lawson Procedure Information Date/Time: 10/08/23 0830 Procedures: Percutaneous coronary intervention - with Impella Impella insertion Atherectomy - coronary Location: [facility] 3 / [facility] (Cath) Providers: Julito Zendejas [...] [facility] Note hydral [place] Cardiology - [facility] Subjective Laura Lawson is a 72 y.o. year old female patient being seen for Follow-up (Follow up - heart cath ) Patient Active Problem List Diagnosis Allergic rhinitis Angiomyolipoma of kidney Benign essential hypertension Cerebrovascular disease Chronic foot ulcer ([facility]/HCC) Coronary atherosclerosis Decreased estrogen level Diabetic retinopathy associated with type 2 diabetes mellitus ([facility]/HCC) Diaphragmatic hernia Difficulty walking Dyspnea on exertion Generalized osteoarthritis Gout History of arthritis History of hysterectomy Hyperglycemia due to type 2 diabetes mellitus ([facility]/HCC) nursing home current use of insulin ([facility]/HCC) Low back pain Morbid obesity ([facility]/HCC) Neoplasm of uncertain behavior of kidney Obstructive sleep apnea syndrome Osteoarthritis of knee Osteoporosis Peripheral venous insufficiency Polyneuropathy due to type 2 diabetes mellitus ([facility]/HCC) Preoperative evaluation to rule out surgical contraindication Pulmonary function studies abnormal Pure hypercholesterolemia Renal mass Skin sensation disturbance Type 2 diabetes mellitus without complication ([facility]/HCC) Umbilical hernia Uric acid nephrolithiasis NSTEMI (non-ST elevated myocardial infarction) ([facility]) Acute exacerbation of CHF (congestive heart failure) ([facility]) COVID-19 Acquired spondylolisthesis Acute on chronic diastolic heart failure ([facility]) Coronary artery disease (CAD) excluded Diastolic dysfunction GERD (gastroesophageal reflux disease) History of carpal tunnel surgery of right wrist Hyperlipidemia Impaired mobility and endurance Localized edema Lumbar radiculopathy Morbid obesity with body mass index (BMI) of 45.0 to 49.9 in adult ([facility]) Paresthesia of skin Primary osteoarthritis of both knees S/P drug eluting coronary stent placement Ulcer of foot due to type 2 diabetes mellitus ([facility]) Pericardial effusion Acute systolic heart failure ([facility]) 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 female admitted from [facility] [employer] [facility] s/p left heart cath for evaluation [...] placement with impella, however, due to one [employer]restle main[employer] laborer being down, they are going to reschedule for next week and she can go home in the meantime. Dear Dr. Arsenio MD, Laura is advised to follow up with you within 1-2 weeks. 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 No Living Arrangement (Current/Prior to Hospitalization) Private residence;Home self care (lives w/friend. One story home w/4 entry stairs) Does the patient have history of HHC or SNF? Yes (HHC after back surgery - doesn't recall company) Assistive Device Grab bars;Other (Comment) (rollator, bipap machine ([employer] shower chair) Patient's goal for discharge [...] able to send link and activate MyChart? [facility] NoteHospital Medicine History and Physical 09/09/2023 12:19 PM THE HOSPITALIST TEAM PREFERS TO USE CRAVE CHAT FOR COMMUNICATION 7AM-7PM. IF I DO NOT RESPOND WITHIN 15 MINUTES, PLEASE PAGE ME/CALL THROUGH THE NUCLEAR WEAPONS SPECIALIST. FROM 7PM-7AM, PLEASE PAGE [phone](COVR) Chief Complaint No chief complaint on file. History of Present Illness Laura Lawson is an 72 y.o. 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 09/09/2023 Pericardial effusion 08/05/2023 History of carpal tunnel surgery of right wrist 07/31/2023 Impaired mobility and endurance 07/31/2023 Morbid obesity with body mass index (BMI) of 45.0 to 49.9 in adult ([facility]) 07/31/2023 Acute on chronic diastolic heart failure ([facility]) 07/21/2023 Acute exacerbation of CHF (congestive heart failure) ([facility]) 07/03/2023 COVID-19 07/03/2023 NSTEMI (non-ST elevated myocardial infarction) ([facility]) 07/02/2023 Acquired spondylolisthesis 01/13/2023 Diastolic dysfunction 01/13/2023 Lumbar radiculopathy 01/13/2023 Paresthesia of skin 01/13/2023 Primary osteoarthritis of both knees 01/13/2023 S/P drug eluting coronary stent placement 01/13/2023 Localized edema 10/28/2022 Coronary artery disease (CAD) excluded 10/15/2022 GERD (gastroesophageal reflux disease) 10/15/2022 Hyperlipidemia 10/15/2022 Difficulty walking 04/24/2021 Pure hypercholesterolemia 09/20/2020 Osteoporosis 03/08/2020 Peripheral venous insufficiency 01/10/2020 Polyneuropathy due to type 2 diabetes mellitus ([facility]) 01/10/2020 Chronic foot ulcer ([facility]) 11/25/2019 Ulcer of foot due to type 2 diabetes mellitus ([facility]) 11/25/2019 Skin sensation disturbance 11/05/2019 Decreased estrogen level 07/28/2019 Diabetic retinopathy associated with type 2 diabetes mellitus ([facility]) 10/30/2018 Dyspnea on exertion 08/04/2018 Osteoarthritis of knee 12/29/2017 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 Umbilical hernia 07/15/2017 Renal mass 05/28/2017 Generalized 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/17/2016 Cerebrovascular disease 02/01/2016 Allergic rhinitis 07/12/2015 History of hysterectomy 07/12/2015 Hyperglycemia due to type 2 diabetes mellitus ([facility]) 07/12/2015 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 of insulin ([facility]) 07/12/2015 Uric acid nephrolithiasis 07/12/2015 Pulmonary function studies abnormal 11/02/2013 Preoperative (more content not included)...[facility] 09-09-2023 NotePatient: Laura Lawson Procedure Information Date/Time: 09/09/23929 Procedure: Coronary angiography (Left) Location: [facility] 3 / [facility] (Cath) Providers: Julito Zendejas MD Clinical information reviewed: Allergies Meds OB Status Physical Exam Airway Mallampati: IV TM distance: <3 FB Neck ROM: full Cardiovascular Dental Pulmonary Abdominal Anesthesia Plan ASA 3 other (Subconscious sedation. ) Additional [facility] Miscellaneous Notes* Telephone Encounter - Trista Castaneda [...] with Dr. العلي on 12/15/23 11:00 at [facility]. She wanted to wait some months out due to Dr. Uribe saying it wasn't urgent for her to come in soon for the carpel tunnel. [facility] Tele[facility] encounter Note* Telephone Encounter - Trista [...] INFORMATION TO THEIR NEW PATIENT APPOINTMENT [facility]03-28-[facility] Telephone encounter Note* Telephone Encounter - Kasandra Weaver - 09/04/2023 2:53 PM EDT Received call today 09/05/23 3:10 from patient in regard to previous message and she scheduled for new patient appt with Dr. العلي on 12/15/23 11:00 at [facility]. She wanted to wait some months out due to Dr. Uribe saying it wasn't urgent for her to come in soon for the carpel tunnel. [facility] [employer] [id number] History of Present illness Narrative* Robbi Uribe MD - 08/19/2023 11:30 AM EDT Reason for visit: HPI: Laura Lawson is a 72 y.o. female who presents for follow up for a questionable small right cerebellar stroke in June 2023. Patient was initially admitted for CHF exacerbation, NSTEMI in the midst of [facility]. Patient has prior medical history significant for [...] has since followed up with Cardiology at [facility]. Patient is present with [...] occlusions or narrowing, cardiology should consider a salvage determiner heart monitor such as a LOOP recorder. Followup with general neurology for h/o carpel tunnel and possible diabetic neuropathy. Will call patient in 6 months, if patient is doing well, no followup needed. Call for any questions/concerns. documented in this encounterHighland District HospitalGHEN MATERIALS [facility] [id number] Instructions* Patient Instructions* Robbi Uribe MD - 08/19/2023 11:30 AM EDT Continue ASA daily Continue cholesterol medication Continue diabetic medication Continue BP medication Followup with cardiology as scheduled. Will clear patient for heart cath procedures and stents if needed. If heart cath shows no significant occlusions or narrowing, cardiology should consider a salvage determiner heart monitor such as a LOOP recorder. Followup with general neurology for h/o carpel tunnel and possible diabetic neuropathy. Will call patient in 6 months, if patient is doing well, no followup needed. Call for any questions/concerns. documented in this encounterCleveland Clinic02-22-2024 NotePatient here for follow up echo. She [...] [facility] NoteCardiovascular Medicine [facility] SUBJECTIVE Chief Complaint Patient presents with Congestive Heart Failure Hypertension Laura Lawson is a 72 y.o. female here for hospital follow-up. HPI PMHx: resistant HTN, HFpEF, DM II, KJ She was recently admitted to [facility] for acute on chronic [...] essential hypertension Cerebrovascular disease Chronic foot ulcer ([facility]) Coronary atherosclerosis Decreased estrogen level Diabetic retinopathy associated with type 2 diabetes mellitus ([facility]) Diaphragmatic hernia Difficulty walking Dyspnea on exertion Generalized osteoarthritis Gout History of arthritis History of hysterectomy Hyperglycemia due to type 2 diabetes mellitus ([facility]) 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 of 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 ([facility]) Low back pain Morbid obesity ([facility]) Neoplasm of uncertain behavior of kidney Obstructive sleep apnea syndrome Osteoarthritis of knee Osteoporosis Peripheral venous insufficiency Polyneuropathy due to type 2 diabetes mellitus ([facility]) Preoperative evaluation to rule out surgical contraindication Pulmonary function studies abnormal Pure hypercholesterolemia Renal mass Skin sensation disturbance Type 2 diabetes mellitus without complication ([facility]) Umbilical hernia Uric acid nephrolithiasis NSTEMI (non-ST elevated myocardial infarction) ([facility]) Acute exacerbation of CHF (congestive heart failure) ([facility]) COVID-19 Acquired spondylolisthesis Acute on chronic diastolic heart failure ([facility]) Coronary artery disease (CAD) excluded Diastolic dysfunction GERD (gastroesophageal reflux disease) History of carpal tunnel surgery of right wrist Hyperlipidemia Impaired mobility and endurance Localized edema Lumbar radiculopathy Morbid obesity with body mass index (BMI) of 45.0 to 49.9 in adult ([facility]) Paresthesia of skin Primary osteoarthritis of both knees S/P drug eluting coronary stent placement Ulcer of foot due to type 2 diabetes mellitus ([facility]) Pericardial effusion Past Medical History: Diagnosis Date Abnormal ECG CHF (congestive heart failure) ([facility]) Coronary artery disease Diabetes mellitus ([facility]) Gout Hypertension Myocardial infarction ([facility]) Sleep apnea Family History Problem Relation Name [...] female who presents for Follow-up (Admitted to [facility] 07/02/23 dx: Covid,CHF exac., NSTEMI discharged home 07/07/23 started on farxiga, coreg stopped labetolol pt had follow up appt with cardiology 07/16/23). Flowsheet Row Patient Outreach from 07/09/2023 in [facility] with Soledad Guerrero RN Discharge Information ED or Hospital Discharge? Hospital Patient has been contacted within two business days of discharge Yes Discharge Date 07/07/23 Discharge [facility] [D/C Acute on Chronic heart Failure, [...] Comments labs, ecg, CXR. Pt transferred from [facility] to [facility], tested positive for covid, negative for covid x2 at [facility]. Pt to follow with Cardiology, appt on 07/16 at 2:20pm. Neurology 08/19/23 [facility] in [place]. Pt reports no shortness of breath. Using [...] 2013 Disease:Diabetes mellitus, type 2 HERNIA REPAIR [place] ARTHRD ANT INTERBODY MIN DSC LUMBAR 03/18/2022 [...] noted above. 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 documented in this encounterGeneral Leonard Wood Army Community [id number] NoteCardiovascular Medicine [facility] SUBJECTIVE Chief Complaint Patient presents with [...] Admission Diagnosis: NSTEMI (non-ST elevated myocardial infarction) ([facility]) [I21.4] HPI and Hospital course: Laura Lawson is an 72 y.o. female who came from [facility] with N-STEMI, acute CHF exacerbation, and covid positive. Patient has past medical history of CAD with 4 stents placed. Plavix stopped in August 2022. patient had elevated BNP and troponin. glucose 391. Patient endorses chronic SOB but reports worsening prior to arrival to [facility]. Denies cough. No heparin drip. patient was given Lasix 40 mg IV while at [facility]. Patient tested positive today for covid-19. Her [...] an inpatient. #COVID ? 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 ([facility]) Diaphragmatic hernia Difficulty walking Dyspnea on exertion Generalized osteoarthritis Gout History of arthritis History of hysterectomy Hyperglycemia due to type 2 diabetes mellitus (CMS/HCC) nursing home current use of insulin ([facility]/HCC) Low back pain Morbid obesity ([facility]/H[facility]) Neoplasm of uncertain behavior of kidney Obstructive sleep apnea syndrome Osteoarthritis of knee Osteoporosis Peripheral venous insufficiency Polyneuropathy due to type 2 diabetes mellitus ([facility]/HCC) Preoperative evaluation to rule out surgical contraindication Pulmonary function studies abnormal Pure hypercholesterolemia Renal mass Skin sensation disturbance Type 2 diabetes mellitus without complication ([facility]/HCC) Umbilical hernia Uric acid nephrolithiasis NSTEMI (non-ST elevated myocardial infarction) ([facility]) Acute exacerbation of CHF (congestive heart failure) ([facility]) COVID-19 Past Medical History: Diagnosis Date Abnormal ECG CHF (more content not included)...[facility]02-07-[facility] NotePatient here for follow up [facility] for CHF and NSTEMI. [...] patient needs outpatient follow up in the [facility] [place]),also she needs 30-day event monitor. (Being done through [place]) * Telephone Encounter - Kasandra Henriquez - 07/08/2023 4:03 PM EST Called patient and vm is not set up. No answer Spoke with Latrice, patients roommate and transportation, and scheduled appt documented in this encounterCleveland Clinic01-30-2024 Telephone encounter Note* Telephone Encounter - Tasha Girard RN - 07/08/2023 4:03 PM EST This patient needs outpatient follow up in the [facility] [place] [facility] [place]),also she needs 30-day event monitor. ([place] done through [place]) [facility]01-[facility] Telephone encounter Note* Telephone Encounter - Kasandra Henriquez - 07/08/2023 4:03 PM EST Called patient and vm is not set up. No answer Spoke with Latrice, patients roommate and transportation, and scheduled appt [facility]01-29-2024 NoteHospital Medicine Discharge Summary Final Discharge Diagnosis: [...] an 72 y.o. female who came from [facility] with N-STEMI, acute CHF exacerbation, and covid positive. Patient has past medical history of CAD with 4 stents placed. Plavix stopped in August 2022. patient had elevated BNP and troponin. glucose 391. Patient endorses chronic SOB but reports worsening prior to arrival to [facility]. Denies cough. No heparin drip. patient was given Lasix 40 mg IV while at [facility]. Patient tested positive today for covid-19. Her [...] an inpatient. #COVID ? - positive at [place] but negative x 2 at [facility] - Remdesivir was discontinued [...] [facility] Your medication list START [...] Your Medications These medications were sent to [facility]/pharmacy #[id number] [place] [id number] carvedilol 6.25 mg tablet dapagliflozin propanediol 10 [...] Clinical Asst. Professor Department of Neurology-Stroke Contact: ([facility]) Disclaimer: Portions of the record/note may have been created with voice recognition software. Occasional wrong-word or '[id number]' substitutions may have occurred due to the [...] Progress Note - 07/06/2023 11:13 AM; Room: [address] [place] [address] Admission: 07/02/2023 11:39 PM; Length of stay: 4 days THE HOSPITALIST TEAM PREFERS TO USE CRAVE CHAT FOR COMMUNICATION 7AM-7PM. IF I DO NOT RESPOND WITHIN 15 MINUTES, PLEASE PAGE ME/CALL THROUGH THE NUCLEAR WEAPONS SPECIALIST. FROM 7PM-7AM, PLEASE PAGE [phone](COVR) Code Status: Full Code Barriers to Discharge: [...] Principal Problem: NSTEMI (non-ST elevated myocardial infarction) ([facility]) Active Problems: Benign essential hypertension Coronary atherosclerosis Dyspnea on exertion Hyperglycemia due to type 2 diabetes mellitus ([facility]) Morbid obesity ([facility]) Obstructive sleep apnea syndrome Peripheral venous insufficiency Acute exacerbation of CHF (congestive heart failure) ([facility]) COVID-19 Assessment and Plan #Acute on chronic [...] echo results #COVID ? - positive at [place] but negative x 2 at [facility] - will DC remdisivir [...] LDL 108 07/03/2023 No results found for: [id number] , IRON , TIBC , C3 , [...] is completed. Patient will need 30 days laboratory monitor after discharge. ENRIQUE CARPENTER MD Neurointervantional Fellow.Premier [...] Principal Problem: NSTEMI (non-ST elevated myocardial infarction) ([facility]) Active Problems: Benign essential hypertension Coronary atherosclerosis Dyspnea on exertion Hyperglycemia due to type 2 diabetes mellitus ([facility]) Morbid obesity ([facility]) Obstructive sleep apnea syndrome Peripheral venous insufficiency Acute exacerbation of CHF (congestive heart failure) ([facility]) COVID-19 NSTEMI, Likely type II in setting [...] please call for any concerns Dulce Pizano ELECTRICAL SOFTWARE ENGINEER Division of Cardiology, [facility]- [phone] Pager- [phone] Email- [email or web address]01-27-2024 NoteSpeech Language Pathology Speech Language Pathology Evaluation Patient Name: Laura Lawson : 1950 Today's Date: 07/05/2023 Date of Evaluation: 07/05/2023 General Subjective: Laura Lawson is an 72 y.o. female who came from [facility] with N-STEMI, acute CHF exacerbation, and covid positive. Patient has past medical history of CAD with 4 stents placed. Chart Reviewed: Yes Treatment Duration (min): 15 Minutes Family/Caregiver Present: No Patient Active Problem List Diagnosis Allergic rhinitis Angiomyolipoma of kidney Benign essential hypertension Cerebrovascular disease Chronic foot ulcer ([facility]) Coronary atherosclerosis Decreased estrogen level Diabetic retinopathy associated with type 2 diabetes mellitus ([facility]) Diaphragmatic hernia Difficulty walking Dyspnea on exertion Generalized osteoarthritis Gout History of arthritis History of hysterectomy Hyperglycemia due to type 2 diabetes mellitus ([facility]) 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 of insulin ([facility]CC) Low back pain Morbid obesity ([facility]) Neoplasm of uncertain behavior of kidney Obstructive sleep apnea syndrome Osteoarthritis of knee Osteoporosis Peripheral venous insufficiency Polyneuropathy due to type 2 diabetes mellitus ([facility]) Preoperative evaluation to rule out surgical contraindication Pulmonary function studies abnormal Pure hypercholesterolemia Renal mass Skin sensation disturbance Type 2 diabetes mellitus without complication ([facility]CC) Umbilical hernia Uric acid nephrolithiasis NSTEMI (non-ST elevated myocardial infarction) ([facility]) Acute exacerbation of CHF (congestive heart failure) ([facility]) COVID-19 Past Medical History: Diagnosis Date Coronary artery disease Diabetes mellitus ([facility]) Gout Hypertension Sleep apnea Past Surgical History: Procedure Laterality Date BACK SURGERY CARDIAC CATHETERIZATION CARPAL TUNNEL RELEASE HYSTERECTOMY THYROID SURGERY General Visit Info General Subjective: Laura Lawson is an 72 y.o. female who came from [facility] with N-STEMI, acute CHF exacerbation, and [...] Primary Mode of Expression: Verbal Primary Language: Greek Repetition: Intact Sentence Completion: Intact Open Ended Questions: Intact Conversation: Intact Higher Level Cognitive Functions Higher Level Cognitive Functions Attention: Within Functional Limits Memory: Unable to assess (Unable to assess, due to pt hearing status.) Problem Solving: Within Functional Limits Insight: Within function limits Impulsive: Within functional limits Processing Speed: Within funtional limits Perseveration: Not present Assessment/Plan MANAGER RENEWABLE ENERGY Assessment Medical Staff Made Aware: Yes Plan MANAGER RENEWABLE ENERGY - OK to Discharge: Yes Written/Dictated by Gertrudis Marshall CCC-MANAGER RENEWABLE ENERGY at 1:15 PMPremier Health [facility]01-27-2024 [facility] Progress Note - 07/05/2023 12:18 PM; Room: [address] [place] [address] Admission: 07/02/2023 11:39 PM; Length of stay: 3 days THE HOSPITALIST TEAM PREFERS TO USE CRAVE CHAT FOR COMMUNICATION 7AM-7PM. IF I DO NOT RESPOND WITHIN 15 MINUTES, PLEASE PAGE ME/CALL THROUGH THE NUCLEAR WEAPONS SPECIALIST. FROM 7PM-7AM, PLEASE PAGE [phone](COVR) Code Status: Full Code Barriers to Discharge: [...] Principal Problem: NSTEMI (non-ST elevated myocardial infarction) ([facility]) Active Problems: Benign essential hypertension Coronary atherosclerosis Dyspnea on exertion Hyperglycemia due to type 2 diabetes mellitus ([facility]) Morbid obesity ([facility]) Obstructive sleep apnea syndrome Peripheral venous insufficiency Acute exacerbation of CHF (congestive heart failure) ([facility]) COVID-19 Assessment and Plan #Acute on chronic [...] stroke team. #COVID ? - positive at [facility] but negative x 2 at [facility] - will DC remdisivir [...] LDL 108 07/03/2023 No results found for: [id number] , IRON , TIBC , C3 , [...] acute heart failure exacerbation and COVID-positive at [facility]. 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 of insulin (CMS/HCC) Low back pain Morbid obesity (CMS/HCC) Neoplasm of uncertain behavior of kidney Obstructive sleep apnea syndrome Osteoarthritis of knee Osteoporosis Peripheral venous insufficiency Polyneuropathy due to type 2 diabetes mellitus (CMS/HCC) Preoperative evaluation to rule out surgical contraindication Pulmonary function studies abnormal Pure hypercholesterolemia Renal mass Skin sensation disturbance Type 2 diabetes mellitus without complication ([facility]) Umbilical hernia Uric acid nephrolithiasis NSTEMI (non-ST elevated myocardial infarction) ([facility]) Acute exacerbation of CHF (congestive heart failure) ([facility]) COVID-19 Past Medical History: Diagnosis Date Coronary artery disease Diabetes mellitus ([facility]) Gout Hypertension Sleep apnea Past Surgical History: [...] Level of Function Prior Function Level of [place]: Independent with ADLs and functional transfers, Independent [...] at 90 degrees for all PO intake MANAGER RENEWABLE ENERGY to follow for speech and language eval due to new onset aphasia this morning History of Present Illness 72 year old female admitted 07/02 as a transfer from [facility] after being found to have NSTEMI, acute heart failure exacerbation and COVID positive. Patient has past medical history of CAD with 4 stents placed. Baseline Assessment Temperature Spikes Noted: Not applicable Respiratory Status: Room air History of Intubation: No Behavior/Cognition: Alert, Cooperative, Pleasant mood, Requires cueing Dentition: Adequate Vision: Functional for self-feeding Patient Positioning: Upright in chair Baseline Vocal Quality: Normal [facility] and strength appeared WNL. Lingual ROM slightly reduced on left. Required max cues to complete oral motor tasks may be due to pt [place]. Laryngeal Function Vocal Quality: Within Functional Limits [...] Progress Note - 07/04/2023 9:31 AM; Room: [address] [place] [address] Admission: 07/02/2023 11:39 PM; Length of stay: 2 days THE HOSPITALIST TEAM PREFERS TO USE CRAVE CHAT FOR COMMUNICATION 7AM-7PM. IF I DO NOT RESPOND WITHIN 15 MINUTES, PLEASE PAGE ME/CALL THROUGH THE NUCLEAR WEAPONS SPECIALIST. FROM 7PM-7AM, PLEASE PAGE [phone](COVR) Code Status: Full Code Barriers to Discharge: [...] Principal Problem: NSTEMI (non-ST elevated myocardial infarction) ([facility]) Active Problems: Benign essential hypertension Coronary atherosclerosis Dyspnea on exertion Hyperglycemia due to type 2 diabetes mellitus ([facility]) Morbid obesity ([facility]) Obstructive sleep apnea syndrome Peripheral venous insufficiency Acute exacerbation of CHF (congestive heart failure) ([facility]) COVID-19 Assessment and Plan NSTEMI, Likely type [...] on 07/04 COVID ? - positive at [place] but negative x 2 at [facility] - will DC remdisivir [...] LDL 108 07/03/2023 No results found for: [id number] , IRON , TIBC , C3 , [...] Yes Does the patient have a case management specialist assigned to them through their insurance? No [...] able to send link and activate MyChart? NoUnCity [facility]-25-2024 NoteClinical Nutrition Assessment Name: Laura Lawson [...] with questions and contact the dietitian via Medium chat 8A-4P Friday-Friday. Or call the dietitian's office at extension [phone]. For s/holidays, the dietitian's can be reached by paging [phone] from 9A-3P. Unable to be reached via vogogo chat on Friday & .)[facility]01-25-2024 NotePharmacy Dosing Service [...] Thank you, Parish Fernandez, PharmD, MS, BCPS 07/03/2023[facility]01-25-2024 NoteHospital Medicine History and Physical 07/03/2023 12:01 AM THE HOSPITALIST TEAM PREFERS TO USE [employer] FOR COMMUNICATION 7AM-7PM. IF I DO NOT RESPOND WITHIN 15 MINUTES, PLEASE PAGE ME/CALL THROUGH THE NUCLEAR WEAPONS SPECIALIST. FROM 7PM-7AM, PLEASE PAGE [phone](COVR) Chief Complaint Patient transfer/direct admit from [facility] to [facility] for NSTEMI, CHF Exacerbation, and COVID-19 + History of Present Illness Laura Lawson is an 72 y.o. female who came from [place] [facility] with N-STEMI, acute CHF exacerbation, and covid positive. Patient has past medical history of CAD with 4 stents placed. Plavix stopped in August 2022. Troponin 180--> 179. BNP 19,000. Glucose 391Patient endorses chronic SOB but reports worsening prior to arrival to [facility]. Denies cough. No heparin drip. Was given Lasix 40 mg IV while at [facility]. Patient tested positive today for covid-19. Her chest X-ray shows decreased lung volume w/ moderate elevation of left hemidiaphragm, compression atelectasis associated w/ the left hemidiaphragm. Patchy densitied w/in left perihilar region noted and are suggestive of atelectasis and or infiltrate. Peribronchial cuffing w/in both hilar regions observed and may be associated with bronchitis. Per [facility], patient SpO2 was good, just feels like she isn't getting enough air into her lungs . Chest X-ray showed cardiomegaly with vascular congestion and bilateral effusions. EKG sinus rhythm, first degree AV block, anterolateral myocardial infarction, probably recent. Possible right ventricular hypertrophy. Meds given in [facility]: nitroglycerin 0.4 mg SL X2, ASA [...] Date Noted NSTEMI (non-ST elevated myocardial infarction) ([facility]) 07/02/2023 Difficulty walking 04/24/2021 Pure hypercholesterolemia 09/20/2020 Osteoporosis 03/08/2020 Peripheral venous insufficiency 01/10/2020 Polyneuropathy due to type 2 diabetes mellitus ([facility]) 01/10/2020 Chronic foot ulcer ([facility]) 11/25/2019 Skin sensation disturbance 11/05/2019 Decreased estrogen level 07/28/2019 Diabetic retinopathy associated with type 2 diabetes mellitus ([facility]) 10/31/19 (more content not included)...[facility] [...] of view she is done very well. [facility] Other 04-06-2023 Evaluation note* Encounter Date Diagnosis [...] back in 6 months with another x-ray. [facility] Other 01-05-2023 Evaluation note* Encounter Date Diagnosis [...] Jun, Spondylolisthesis, lumbar region (ICD-10 - M43.16) [facility] Other 11-10-2022 Evaluation note* Encounter Date Diagnosis [...] Apr, Spondylolisthesis, lumbar region (ICD-10 - M43.16) [facility] Other 10-14-2022 Progress note Author Abner Roa [facility] March 22, 2022 6:34am Note Date/Time March 22, 2022 6 :34am [facility] [address] [place] [address] Neurosurgery Progress Note Signed Patient: Laura Lawson MR#: [id number] : 1950 Acct:[id number] Age/Sex: 71 / F Adm Date: 2 Loc: Room: 8A0874-0 Type: ADM IN Attending Dr: Abner Roa [...] <Electronically signed by MD Abner Roa> 03/22/22633 [facility] Work Phone: 1(866) 855-196110-13-2022 Progress note Author Abner Roa [facility] March 21, 2022 7:43am Note Date/Time March 21, 2022 7 :43am [facility] [address] [place] [address] Neurosurgery Progress Note Signed Patient: Laura Lawson MR#: [id number] : 1950 Acct:[id number] Age/Sex: 71 / F Adm Date: 2 Loc: Room: [address] [place] [address] Type: ADM IN Attending Dr: Abner Roa [...] <Electronically signed by MD Abner Roa> 03/21/2243 [facility] Work Phone: 1(115) 889-464110-12-2022 Progress note Author Abner Roa [facility] March 20, 2022 10:22am Note Date/Time March 20, 2022 1 0:22am [facility] [address] [place] [address] Neurosurgery Progress Note Signed Patient: Laura Lawson MR#: [id number] : 1950 Acct:[id number] Age/Sex: 71 / F Adm Date: 2 Loc: Room: 1G5770-7 Type: ADM IN Attending Dr: Abner Roa [...] Glucose 245, POC Glucose Comment Will notify dr/solderer furnace/Plan Assessment/Plan (1) Lumbar stenosis with neurogenic claudication: [...] <Electronically signed by MD Abner Roa> 03/20/221021 [facility] Work Phone: [phone]) 222-553110-11-2022 Progress note Author Abner Roa [facility] March 19, 2022 7:33am Note Date/Time March 19, 2022 7 :33am [facility] [address] [place] [address] Neurosurgery Progress Note Signed Patient: Laura Lawson MR#: [id number] : 1950 Acct:[id number] Age/Sex: 71 / F Adm Date: 2 Loc: Room: 5F1859-2 Type: ADM IN Attending Dr: Abner Roa [...] signed by MD Abner Roa> 03/19/22 0733 [facility] Work Phone: 1(139) 966-674608-09-2022 Evaluation note* Encounter Date Diagnosis Assessment Notes [...] stenosis with neurogenic claudication (ICD-10 - M48.062) ABB Other 07-01-2022 Evaluation note* Encounter Date Diagnosis [...] - G89.29) Continue with current treatment plan ABB Other 06-30-2022 Evaluation note* Encounter Date Diagnosis [...] Asymptomatic age-related postmenopausal state (ICD-10 - Z78.0) ABB Other 06-02-2022 Evaluation note* Encounter Date Diagnosis [...] - G89.29) Continue with current treatment plan ABB Other 05-18-2022 Evaluation note* Encounter Date Diagnosis [...] - G89.29) Continue with current treatment plan ABB Other 05-09-2022 Evaluation note* Encounter Date Diagnosis [...] greater trochanteric bursa injection in the future. ABB Other 04-19-2022 Evaluation note* Encounter Date Diagnosis [...] negative findings were considered in medical decision-making. ABB Other Consult note* Clinical Note Date No Information [facility] Work Phone: Discharge summary* Clinical Note Date No Information [facility] Work Phone: [facility] [employer] Other Evaluation noteNo assessment information available [facility] Work Phone: Evaluation note* Diagnosis Onset Date Resolution Status Lumbar stenosis with neurogenic claudication acute [facility] Work Phone: Evaluation note* Diagnosis Onset Date [...] noct urnal bilevel positive airway pressure (BPAP) [facility] Work Phone: Evaluation note* Diagnosis COVID- Primary NSTEMI (non-ST elevated myocardial infarction) ([facility]) Acute myocardial infarction, subendocardial infarction, episode of care unspecified Acute on chronic diastolic heart failure ([facility]) Acute on chronic diastolic heart failure Type 2 diabetes mellitus with hyperglycemia, with long-term current use of insulin ([facility]) 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) Morbid (severe) obesity due to excess calories (E66.01) Body mass index [BMI] 45.0-49.9, adult (Z68.42) Atherosclerosis of [place] coronary artery of [place] heart with angina pectoris ([facility]) documented in this encounter [facility] HealthcareEvaluation note* Diagnosis TIA (transient ischemic attack)- Primary Unspecified transient cerebral ischemia Bilateral carpal tunnel syndrome Carpal tunnel syndrome documented in this encounter [facility]* Diagnosis Onset Date Resolution Status History of lumbar fusion acu te Spondylolisthesis, lumbar region [facility] Work Phone: Evaluation note* Diagnosis Acute right-sided low back pain with right-sided sciatica- Primary Right lumbar radiculopathy Thoracic or lumbosacral neuritis or radiculitis, unspecified Muscle spasm Spasm of muscle documented in this encounter [facility] HealthcareEvaluation note* Diagnosis Spinal stenosis of lumbar region without neurogenic claudication- Primary Right lumbar radiculopathy Thoracic or lumbosacral neuritis or radiculitis, unspecified Difficulty walking Difficulty in walking documented in this encounter [facility] HealthcareEvaluation note* Diagnosis Type 2 diabetes mellitus with hyperglycemia, with long-term current use of insulin ([facility])- Primary Abnormal MRI, lumbar spine documented in this encounter [facility] HealthcareEvaluation note* Diagnosis Diabetes mellitus due to underlying condition with diabetic polyneuropathy, without long-term current use of insulin ([facility])- Primary Pain due to onychomycosis of toenails of both feet Peripheral venous insufficiency Unspecified venous (peripheral) insufficiency documented in this encounter [facility] HealthcareHistory and physical note* Clinical Note Date No Information [facility] Work Phone: History general Narrative - Reported* Type Description Date Medical History diabetes Medical History obstructive sleep apnea Surgical History total hysterectomy Surgical History hernia repair Surgical History neck mass removal ABB Other History general Narrative - Reported* Type Description Date Medical History diabetes Medical History obstructive sleep apnea Surgical History total hysterectomy Surgical History hernia repair Surgical History neck mass removal Hospitalization History See Above ABB Other Hospital Discharge instructions Additional Instructions DISCHARGE [...] for back spasm 20 minutes every 1-[facility] hours[facility] Work Phone: Hospital Discharge instructionsAmbulatory Orders* Referral to Pain Management Location: [facility] Work Phone: InstructionsNot on filedocumented in this encounter [facility] filedocumented in this encounter [facility]Not on filedocumented in this encounter [facility] SystemProgress note* Clinical Note Date No Information [facility] Work Phone: Reason for referral (narrative)* Consultation (Routine) - Pending Review Specialty Diagnoses / Procedures Referred By Raul zamora Referred To Contact Neurology Diagnoses Bilateral carpal tunnel syndrome Robbi Uribe MD [address] [place] [address], [address] [place] [address] Casey العلي MD [address] [place] [address], [address] [place] [address] Referral ID Status Reason Start Date Expiration Date Visits Requested Visits Authorized [id number] Pending Review Specialty Services Required 08/19/2023 08/18/2024 [facility] Reason For Referral No Information [facility] Work Phone: Reason for visit NarrativeNeurosurgery Referral Update [facility] [employer] Other Summary Purpose Family History No Family [...] Problem Family history o f Cardiovascular disease Relationship Condition Age at Onset Recorded Date/T mirella father Diabetes mellitus Unknown Hypertension Unknown mother Malignant neoplasm of skin Unknown mother Diabetes mellitus Unknown Heart disease Unknown Malignant [...] spine wo contrast Vlad Cesar MD [address] [place] [address] Referral ID Status Reason Start Date Expiration Date V isits Requested Visits Authorized [id number] Pending Review 03/15/2024 09/11/2024 1 1 Reason leg strengthening, g ait training, balance Diagnosis 1 Spondylolisthesis, l umbar region (M43.16) Referral Organization [facility] Referring Provider First Name Abner Referring Provider Last Name Janina Referring Provider Specialty Neurologica l Surgery Referred Organization [facility] Referred Address ,[place], [place],[address] Referred Provider Specialty Physical The rapist Referral Priority Routine Reason Evaluate and Treat O utPatient PT in [place] for Gait Training and Leg Strengthening Diagnosis 1 Lumbar radiculopathy (M54.16) Referral Organization [facility] urosurgery Referring Provider First Name Abner Referring Provider Last Name Janina Referring Provider Specialty Neurologica l Surgery Referred Organization [facility] Sched uling Referred Address [address] [place], [place],[address] Referred Provider Specialty Physical The rapist Referral Priority Routine Reason eval and treat Diagnosis 1 Lumbar radiculopathy (M54.16) Referral Organization [facility] Pain Managemen t Referring Provider First Name Devang Referring Provider Last Name Keri Referring Provider Specialty Pain Medici ne Referred Organization [facility] Last anthony Co Referred Provider Vlad Georges Referred Address [address] [facility],[address],[place], [place],[id number] Referred Provider Specialty Neurosurgery Referral Priority Routine [...] of lumbar fu renard Spondylolisthesis, lumbar region Chief Complaint increased pain, new MRI in pacs Additional Source Comments INFORMATION SOURCE (unrecogn ized section and content) DATE CREATED AUTHOR 08/19/2018 [facility] DATE CREATED AUTHOR AUTHOR'S ORGANIZ ATION 03/17/2020 [facility] DATE CREATED AUTHOR AUTHOR'S ORGANIZ ATION 11/19/2022 [facility] DATE CREATED AUTHOR AUTHOR'S ORGANIZ ATION 10/25/2023 [facility] DATE CREATED AUTHOR AUTHOR'S ORGANIZ ATION 12/16/2023 [facility] DATE CREATED AUTHOR AUTHOR'S ORGANIZ ATION 03/06/2024 [facility] DATE CREATED AUTHOR AUTHOR'S ORGANIZ ATION 03/12/2024 [facility] DATE CREATED AUTHOR AUTHOR'S ORGANIZ ATION 04/17/2024 [facility] dical Specialists EPIC REASON FOR VISIT (unrecogniz ed section and content) Reason Comments Follow-up Admitted to [facility] 06/10 09/30 dx: Covid,CHF exac., NSTEMI discharged home 07/07/23 started on farxiga, coreg stopped labetolol pt had follow up appt with cardiology 07/16/23 Reason Onset Date Comments NEW PATIENT REFERRAL 09/04/2023 Reason Comments Med Refill baclofen Reason Comments Med Refill Tizanidine Reason Comments Diabetes Reason Comments DM Foot Care Dm Nails Care Teams (unrecognized sec tion and content) [...] KENDALL Other Provider Active Jessica Benson , RN Other Provider Active Arcelia Borges , KENDALL Other Provider Active Sherry Luong , KENDALL Other Provider Active Nanci Gardner , KENDALL Other Provider Active Meliton Schwartz MD Other Provider Active Fred Nash MD Other Provider Active Mirtha Serrano REGULATORY ASSOCIATE Other Provider Active Yesi Dickens , [...] MD Other Provider Active Latonia Ely , ELECTRICAL SOFTWARE ENGINEER-C Other Provider Active Roman Rosales MD Other Provider Active Riccardo Jenkins MD Other Provider Active Edie Granados MD Other Provider Active Eddy Luu MD Other Provider Active Laine Swan , DO Other Provider Active Ruperto Trejo MD Other Provider Active Edwardo Ramirez , DO Other Provider Active Ziggy Vernon , DO Other Provider Active Tressa Degroot , REGULATORY ASSOCIATE Other Provider Active Noam Albaraod , DO Other Provider Active Jacobo Montes MD Other Provider Active Fariha Flowers , KENDALL Other Provider Active Team Status: Active Member Role Status Dates Vlad Cesar II MD Primary Care Provider Active Abner Roa MD Attending Provider Active 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 Relationship Specialty Start Date End Date Vlad Cesar MD [address] [place] [address] PCP - General Internal Medicine 10/21/22 Vlad Cesar MD [address] [place] [address] PCP - ACO Reach 10/31/22 Team Status: Inactive Member Role Status Dates Vlad Cesar II MD Primary Care Provider Active Start: October 23, 2023 End: October 23, 2023 Abner Roa MD Attending Provider Active Star t: October 23, 2023 End: October 23, 2023 Name Effective Dates (start - stop) Status Members No Information 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 Relationship Specialty Start Date End Date Vlad Cesar MD [address] [place] [address] PCP - General Internal Medicine 10/21/22 Vlad Cesar MD [address] [place] [address] PCP - ACO Reach 10/31/22 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 Relationship Specialty Start Date End Date Vlad Cesar MD [address] [place] [address] PCP - General Internal Medicine 10/21/22 Vlad Cesar MD [address] [place] [address] PCP - ACO Reach 10/31/22 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 Relationship Specialty Start Date End Date Vlad Cesar MD [address] [place] [address] PCP - General Internal Medicine 10/21/22 Vlad Cesar MD [address] [place] [address] PCP - ACO Reach 10/31/22 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 Relationship Specialty Start Date End Date Vlad Cesar MD [address] [place] [address] PCP - General Internal Medicine 10/21/22 Vlad Cesar MD [address] [place] [address] PCP - ACO Reach 10/31/22 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 Relationship Specialty Start Date End Date Vlad eCsar MD [address] [place] [address] PCP - General Internal Medicine 10/21/22 Vlad Cesar MD [address] [place] [address] PCP - ACO Reach 10/31/22 Team Status: Inactive Member Role Status Dates Vlad Cesar II MD Primary Care Provider Active Start: April 08, 2024 End: April 08, 2024 Urmila Guzman APRN Attending Provider Active Start: April 08, 2024 End: April 08, 2024 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 Relationship Specialty Start Date End Date Vlad Cesar MD [address] [place] [address] PCP - General Internal Medicine 10/21/22 Vlad Cesar MD [address] [place] [address] PCP - ACO Reach 10/31/22 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 [employer] provides no warranty or guarantee of the accuracy or completeness of information in this document.
--- NOTE | 2024-04-18 22:01 | XR_ITS ---
The [address] [address] Patient Name: LAURA LAWSON MRN: [id number] date: 1950 Sex: F Assigned Patient Location: ER Current Patient Location: ED.MAIN Accession/Order Number: [id number] Exam Date: 04/18/2024 22:28 Report Date: 04/19/2024 01:11 At the request of: MARIYA ORTEGA Procedure: XR chest 1V EXAM: XR chest 1V HISTORY: CP COMPARISON: Chest radiograph dated 07/02/2023. TECHNIQUE: One view of the chest was obtained. FINDINGS: Left neck surgical clips are noted. The cardiac silhouette is enlarged though stable in size. Aortic atherosclerotic disease is seen. There is no significant pneumothorax. There are small pleural effusions with bibasilar opacities. There is interstitial prominence. No acute osseous abnormality is seen. XR/XR chest 1V IMPRESSION: 1. Stable enlarged cardiac silhouette with suspected interstitial edema, small pleural effusions, and bibasilar opacities that could represent atelectasis, aspiration changes, and/or pneumonia. Electronically authenticated by: Bassem WHEELER Date: 04/19/2024 01:11
--- NOTE | 2024-04-18 22:01 | ECG_ITS ---
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
--- NOTE | 2024-04-18 22:04 | ED.CHESTPAI1 ---
HPI - Chest Pain General Chief Complaint: Chest Pain Stated Complaint: Shortness of breath Time Seen by Provider: 04/18/24 21:55 History of Present Illness HPI narrative: 73-year-old female presents for chest pain and shortness of breath. She has had this for 4 hours. She complains of pain on the left side of her chest which goes to her left arm and her upper back. She has had no fever cough or injury. No vomiting or diarrhea. She has a history of CAD and has 4 or 5 stents. Related Data Home Medications ?Medication ?Instructions ?Recorded ?Confirmed allopurinol 300 mg tablet 300 mg PO Q24H 07/02/23 04/19/24 aspirin 81 mg tablet,delayed 81 mg PO DAILY 07/02/23 04/19/24 release (Adult Aspirin Regimen) atorvastatin 40 mg tablet 40 mg PO Q24H 07/02/23 04/19/24 baclofen 10 mg tablet 10 mg PO Q24H 07/02/23 04/19/24 calcium 315 mg (as 1 tab PO BID 07/02/23 07/02/23 citrate)-vitamin D3 5 mcg (200 unit) tablet candesartan 32 mg tablet 32 mg PO DAILY 07/02/23 07/02/23 dulaglutide 1.5 mg/0.5 mL 1.5 mg subcut PRN 07/02/23 07/02/23 subcutaneous pen injector (Trulicity) hydralazine 100 mg tablet 25 mg PO Q8H 07/02/23 04/19/24 insulin glargine U-300 conc 300 30 unit subcut Q24H 07/02/23 04/19/24 unit/mL (3 mL) subcutaneous pen (Toujeo Max U-300 SoloStar) insulin lispro 100 unit/mL 1 sliding scale dose subcut PRN 07/02/23 04/19/24 subcutaneous solution (Humalog U-100 Insulin) meloxicam 15 mg tablet 15 mg PO Q24H 07/02/23 04/19/24 omeprazole 40 mg capsule,delayed 40 mg PO Q24H 07/02/23 04/19/24 release potassium chloride 20 mEq 20 meq PO BID 07/02/23 04/19/24 tablet,extended release (K-Tab) torsemide 20 mg tablet 20 mg PO Q12H 07/02/23 04/19/24 carvedilol 6.25 mg tablet (Coreg) 6.25 mg PO BID 04/19/24 04/19/24 clopidogrel 75 mg tablet (Plavix) 75 mg PO DAILY 04/19/24 04/19/24 dapagliflozin propanediol 10 mg 10 mg PO DAILY 04/19/24 04/19/24 tablet (Farxiga) dulaglutide 1.5 mg/0.5 mL 1.5 mg subcut QWEEK 04/19/24 04/19/24 subcutaneous pen injector (Trulicity) insulin glargine U-300 conc 300 100 unit subcut DAILY 04/19/24 04/19/24 unit/mL (3 mL) subcutaneous pen (Toujeo Max U-300 SoloStar) nitroglycerin 0.3 mg sublingual 0.3 mg sublingual Q5M 04/19/24 04/19/24 tablet sacubitril 49 mg-valsartan 51 mg 1 tab PO BID 04/19/24 04/19/24 tablet (Entresto) spironolactone 25 mg tablet 25 mg PO DAILY 04/19/24 04/19/24 (Aldactone) torsemide 20 mg tablet 20 mg PO DAILY 04/19/24 04/19/24 Previous Rx's ?Medication ?Instructions ?Recorded clotrimazole 2 % vaginal cream 1 appful vaginal .qhs #21 grams 12/13/23 (Gyne-Lotrimin) hydrocortisone 0.5 % topical 1 applic topical DAILY PRN rash 12/13/23 ointment #56 grams Allergies Allergy/AdvReac Type Severity Reaction Status Date / Time gabapentin Allergy Mild rash Verified 04/18/24 23:59 Review of Systems ROS Narrative A ten point review of systems is negative except as noted above. PFSH PFSH Social History Little interest or pleasure in doing things: not at all Feeling down, depressed, or hopeless: not at all Exam Narrative Exam Narrative: Nurses note and vital signs reviewed and patient is not hypoxic. General: The patient appears well and in no apparent distress. Patient is resting comfortably on cart. Skin: Warm, dry, no pallor noted. There is no rash noted. Head: Normocephalic, atraumatic Eye: Normal conjunctiva, no drainage Ears, Nose, Mouth, and Throat: oral mucosa is moist. Nares patent. Cardiovascular: Regular Rate and Rhythm Respiratory: Patient is in no distress, no accessory muscle use, lungs are clear to auscultation, no wheezing, rales or rhonchi Back: non-tender GI: Obese and nontender Musculoskeletal: Bilateral lower extremity edema present. Neurological: A&O, normal speech Psychiatric: Cooperative Constitutional Vital Signs, click to edit/add: Last Vital Signs Pulse 89 04/19/24 00:30 Resp 21 H 04/19/24 00:30 BP 118/66 04/19/24 00:30 Pulse Ox 95 04/19/24 00:30 O2 Del Method Nasal Cannula 04/18/24 23:12 O2 Flow Rate 3 04/19/24 00:30 Course Vital Signs Vital signs: Vital Signs Pulse Rate 90 04/18/24 22:05 Respiratory Rate 19 04/18/24 22:05 Blood Pressure 171/86 H 04/18/24 22:05 Pulse Oximetry 94 L 04/18/24 22:05 Oxygen Delivery Method Room Air 04/18/24 22:05 Pulse Rate 89 04/19/24 00:30 Respiratory Rate 21 H 04/19/24 00:30 Blood Pressure 118/66 04/19/24 00:30 Pulse Oximetry 95 04/19/24 00:30 Oxygen Delivery Method Nasal Cannula 04/18/24 23:12 Oxygen Delivery Flow Rate 3 04/19/24 00:30 MDM - Chest Pain MDM Narrative Medical decision making narrative: The patient presented to the emergency department for chest pain of 4 hours duration prior to arrival. Her troponin is 29,189. She was given aspirin here as well as a heparin drip and she will be transferred to 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 She is hemodynamically stable. Treatment diagnosis and disposition were discussed with the patient. My clinical impression is that she has an NSTEMI. I have spoken to Dr. Vegas who accepts the patient for transfer. She is agreeable and stable for transfer. Differential Diagnosis Differential diagnosis: Likely pneumothorax, unstable angina pectoris, atypical chest pain, st elevation myocardial infarction, chest pain and other (NSTEMI) Lab Data Attestation: I reviewed the patient's lab results. Labs: Lab Results 04/18/24 Range/Units 22:53 WBC 20.2 H (4.0-11.0) 10^3/uL RBC 4.40 (4.20-5.40) 10^6/uL Hgb 12.9 (12.0-16.0) g/dL Hct 40.8 (36.0-48.0) % MCV 92.7 (81.0-99.0) fL MCH 29.3 (26.7-34.0) pg MCHC 31.6 (29.9-35.2) g/dL RDW 16.1 H (11.0-15.0) % Plt Count 406 (150-450) 10^3/uL MPV 9.1 L (9.5-13.5) fL Seg Neuts % (Manual) 87.0 H (43.0-75.0) Lymphocytes % (Manual) 6.0 L (20.5-60.0) % Monocytes % (Manual) 7.0 (1.7-12.0) % Eosinophils % (Manual) 0.0 L (0.9-7.0) % Basophils % (Manual) 0.0 L (0.2-2.0) % Neutrophils # (Manual) 17.57 H (1.4-6.5) 10^3/uL Lymphocytes # (Manual) 1.21 (1.20-3.80) 10^3/uL Monocytes # (Manual) 1.41 H (0.30-0.80) 10^3/uL Eosinophils # (Manual) 0.00 (0.00-0.70) 10^3/uL Basophils # (Manual) 0.00 (0.00-0.10) 10^3/uL D-Dimer 0.79 H* (<=0.59) mg/L FEU Sodium 138 (136-145) mmol/L Potassium 4.4 (3.5-5.1) mmol/L Chloride 101 (98-107) mmol/L Carbon Dioxide 23.1 (21.0-32.0) mmol/L Anion Gap 18.3 BUN 24.0 H (7.0-18.0) mg/dL Creatinine 1.25 H (0.55-1.02) mg/dL Est GFR ( Amer) 51 L (>=60 mL/min/1.73m^2) Est GFR (Non-Af Amer) 42 L (>=60 mL/min/1.73m^2) BUN/Creatinine Ratio 19.2 Glucose 309 H (74-106) mg/dL Calcium 10.3 H (8.5-10.1) mg/dL Troponin I High Sens 72922.9 H* (4.0-51.3) pg/mL Imaging Data Chest x-ray: My impression: No acute findings ECG Data Attestation: I personally reviewed and interpreted this ECG as follows: (EKG on my interpretation shows sinus rhythm with rate of 81 and no acute changes.) Heart Score History: Highly Suspicious ECG: Normal Age: >65 years Risk Factors: >3 Risk Factors/ HX of CAD:2 Troponin: >3X Normal Limit Total Heart Score Recommendations & Risks:: 8 Critical Care Time Critical Care Time Critical Care Time: Yes Total Critical Care Time: 40 Attestation: Due to the high probability of sudden and clinically significant deterioration in the patient's condition he/she required the highest level of my preparedness to intervene urgently I provided critical care time including documentation time, medication orders and management, reevaluation, vital sign assessment, ordering and reviewing of lab tests, ordering and reviewing of x-ray studies, and admission orders. Aggregate critical care time is 40 minutes including only time during which I was engaged in work directly related to his/her care and did not include time spent treating other patients simultaneously. Discharge Plan Discharge Chief Complaint: Chest Pain Clinical Impression: Acute non-ST elevation myocardial infarction (NSTEMI) Patient Disposition: [facility] Time of Disposition Decision: 00:00 Discharge Location: [facility] Condition: Fair Mode of Transportation: EMS
[2024-04-18 22:05] VITALS: BP 171/86; PULSE 90; O2SAT 94; BMI 44.1
--- NOTE | 2024-04-18 23:02 | PC.NURSE ---
Latrice ARGUETA finally got a iv in and blood obtained sent to lab dept
[2024-04-18 23:04] VITALS: BP 134/68; PULSE 87; O2SAT 92
[2024-04-18 23:12] VITALS: O2SAT 87; O2SAT 94
[2024-04-18 23:13] VITALS: O2SAT 94
[2024-04-18 23:15] LABS: Hematocrit 40.8 % (36.0-48.0); Hemoglobin 12.9 g/dL (12.0-16.0); Mean Corpuscular HGB Conc 31.6 g/dL (29.9-35.2); Mean Corpuscular Hemoglobin 29.3 pg (26.7-34.0); Mean Corpuscular Volume 92.7 fL (81.0-99.0); Mean Platelet Volume 9.1 fL (9.5-13.5); Platelet Count 406 10^3/uL (150-450); Red Cell Distribution Width 16.1 % (11.0-15.0); White Blood Count 20.2 10^3/uL (4.0-11.0)
[2024-04-18 23:37] LABS: Anion Gap 18.3; BUN Creatinine Ratio 19.2; Calcium 10.3 mg/dL (8.5-10.1); Carbon Dioxide 23.1 mmol/L (21.0-32.0); Chloride 101 mmol/L (98-107); Estimated GFR (African America 51 (>=60 mL/min/1.73m^2); Estimated GFR (Non-African Ame 42 (>=60 mL/min/1.73m^2); Glucose 309 mg/dL (74-106); Potassium 4.4 mmol/L (3.5-5.1); Sodium 138 mmol/L (136-145)
[2024-04-18 23:38] LABS: D Dimer 0.79 mg/L FEU (<=0.59)
--- NOTE | 2024-04-18 23:40 | PC.NURSE ---
Otf from lab called with critical : D-Dimer=0.79, and Trop= 29,188.9
[2024-04-18 23:41] LABS: Troponin I High Sensitivity 29188.9 pg/mL (4.0-51.3)
--- NOTE | 2024-04-18 23:44 | PC.NURSE ---
Dr Nguyen informed of both of the critical lab results
--- NOTE | 2024-04-18 23:55 | ECG_ITS ---
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
[2024-04-19 00:01] VITALS: BP 143/75; PULSE 84; O2SAT 95
[2024-04-19 00:09] LABS: Lymphocytes Absolute Manual 1.21 10^3/uL (1.20-3.80); Monocytes Absolute Manual 1.41 10^3/uL (0.30-0.80); Segmented Neut Absolute Manual 17.57 10^3/uL (1.4-6.5)
[2024-04-19] MEDS: ASPIRIN 81 MG TAB.CHEW 324 MG PO (00:15)
[2024-04-19] MEDS: HEPARIN SODIUM,PORCINE/D5W 25,000 UNIT/500 ML IV.SOLN 17.76 UNIT IV (00:17)
[2024-04-19] MEDS: HEPARIN SODIUM (PORCINE) 5,000 UNIT/ML VIAL 4000 UNIT IV (00:17)
[2024-04-19 00:30] VITALS: BP 118/66; PULSE 89; O2SAT 95
[2024-04-19] MEDS: NITROGLYCERIN IN 5 % DEXTROSE 50 MG/250 ML INFUS..BTL IV (00:50)
[2024-04-19 01:02] VITALS: BP 139/67; PULSE 80; O2SAT 95
[2024-04-19] MEDS: MORPHINE SULFATE 4 MG/ML VIAL IV (01:37)
[2024-04-19 01:50] LABS: Magnesium 1.9 mg/dL (1.8-2.4)
[2024-04-19 02:06] VITALS: BP 123/82; PULSE 67; O2SAT 97
[2024-04-19 02:32] VITALS: BP 116/54; PULSE 75; O2SAT 95
[2024-04-19 03:00] LABS: INR 1.04; Partial Thromboplastin Time 21.5 sec (22.3-36.2)
[2024-04-19 03:03] VITALS: BP 116/58; PULSE 75; TEMP 37.6; O2SAT 95
--- NOTE | 2024-04-19 03:32 | PC.NURSE ---
i called patients report to [facility] [phone] and spoke with [place] ARGUETA. this patient awake and alert and voices chest pain 06/18, and this patient voices no other complaints and shows no signs of distress, and IV running with no problems at this time
== END 2024-04-19 03:25 | disposition short-term general hospital (02) ==
PROVIDERS: Emergency Provider Emergency Medicine; PCP Internal Medicine
DX: I21.4 Non-ST elevation (NSTEMI) myocardial infarction (principal); I25.10 Atherosclerotic heart disease of native coronary artery without angina pectoris; Z95.5 Presence of coronary angioplasty implant and graft
CPT/HCPCS: 36415; 71045; 80048; 83735; 84484; 85007; 85027; 85378; 85610; 85730; 93005; 96365; 96366; 96368; 96375; 96376; 99285; J1644; J2270; J2305

== ENCOUNTER 2024-06-13 04:36 | Observation (INO) | payer MEDICARE, OTHER, SELFPAY ==
[2024-06-13] VITALS (19 sets, daily range): BP systolic 111–150; BP diastolic 43–90; PULSE 60–81; TEMP 36.2–37.1; O2SAT 92–99; BMI 36.9; BMI 36.8
--- NOTE | 2024-06-13 04:57 | ECG_ITS ---
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
--- NOTE | 2024-06-13 04:57 | XR_ITS ---
The [address] [address] Patient Name: LAURA LAWSON MRN: [id number] date: 1950 Sex: F Assigned Patient Location: ER Current Patient Location: ER Accession/Order Number: [id number] Exam Date: 06/13/2024 05:45 Report Date: 06/13/2024 06:18 At the request of: MARIYA ORTEGA Procedure: XR hip LT min 2V EXAM: XR hip LT min 2V HISTORY: fall COMPARISON: None. TECHNIQUE: AP and lateral views of the left hip performed. FINDINGS: The bony alignment is anatomic. The bony structures are osteopenic. There is no fracture. The left hip joint is maintained. There is no avascular necrosis. There are mild degenerative changes at the partially imaged right hip joint. A bone island within the right supra-acetabular region. The image portions of the sacrum are unremarkable. There is mild sclerosis along the iliac margin of the right sacroiliac joint. The symphysis is unremarkable. There is extensive atheromatous calcification. XR/XR hip LT min 2V IMPRESSION: There is no acute process. There is no fracture. Chronic findings as described in the body the report. Electronically authenticated by: GEREMIAS ROBERTS Date: 06/13/2024 06:18
--- NOTE | 2024-06-13 04:57 | XR_ITS ---
The [address] [address] Patient Name: LAURA LAWSON MRN: [facility]:[id number] date: 1950 Sex: F Assigned Patient Location: ER Current Patient Location: ER Accession/Order Number: [id number] Exam Date: 06/13/2024 05:45 Report Date: 06/13/2024 06:19 At the request of: MARIYA ORTEGA Procedure: XR lumbar spine 2-3V EXAM: XR lumbar spine 2-3V HISTORY: . Left hip and back pain after falling twice. COMPARISON: Lumbar spine MRI, 03/23/2024. TECHNIQUE: AP and crosstable lateral lumbar spine x-rays. FINDINGS: No acute lumbar spine fracture or compression deformity is seen. 5 lumbar vertebral bodies are normal in height. Mild lumbar levoscoliosis is noted. There are laminectomies at L3-L5 with underlying discectomy, disc spacer placement and posterior interbody fusion consisting of rods and bilateral transpedicular screws in satisfactory position at the L3, L4 and L5 levels. There is no hardware loosening or failure. Despite posterior interbody fusion, there is a 2 mm grade 1 anterolisthesis of L4 on L5. Lumbar alignment is otherwise normal. Remaining disc spaces are maintained. The sacrum and sacroiliac joints appear intact. There is gaseous prominence of the stomach, multiple small bowel loops and colon, which may be normal or reflect a mild ileus. Arterial calcifications are present. XR/XR lumbar spine 2-3V IMPRESSION: 1. No acute lumbar spine findings. Chronic degenerative and postsurgical changes are described above. 2. Gaseous prominence of the stomach, small bowel and colon may be normal or reflect a mild ileus. Electronically authenticated by: HECTOR HERNANDEZ Date: 06/13/2024 06:19
--- NOTE | 2024-06-13 04:57 | XR_ITS ---
The [address] [address] Patient Name: LAURA LAWSON MRN: [id number] date: 1950 Sex: F Assigned Patient Location: ER Current Patient Location: ER Accession/Order Number: [id number] Exam Date: 06/13/2024 05:45 Report Date: 06/13/2024 06:13 At the request of: MARIYA ORTEGA Procedure: XR chest 1V EXAM: XR chest 1V HISTORY: weak COMPARISON: Portable chest radiograph dated 04/18/2024. TECHNIQUE: AP supine view of the chest performed. FINDINGS: The trachea is unremarkable. Stable mild enlargement of the cardiac silhouette. Stent projecting over the heart. Stable mild atheromatous calcification at the aortic arch. There is no consolidation. There is a small left pleural effusion which may be present on the previous examination. There is no pulmonary vascular congestion. There is no pneumothorax. The bony structures are osteopenic. There is no acute osseous abnormality. There are paravertebral ossifications along the spine. XR/XR chest 1V IMPRESSION: There is a small left pleural effusion which may been present on the previous examination. There is otherwise no acute cardiopulmonary process. Chronic findings as described in the body the report. Electronically authenticated by: GEREMIAS ROBERTS Date: 06/13/2024 06:13
--- NOTE | 2024-06-13 05:00 | ED_ITS ---
HPI HPI - General Adult General Chief complaint: Fall Stated complaint: FALL Time Seen by Provider: 06/13/24 04:52 Source: patient Mode of arrival: ambulance Limitations: no limitations History of Present Illness HPI narrative: 73-year-old female presents to the emergency department because she fell. She is weak and she could not get up. This happened just before coming into the emergency department. She states she did not lay on the floor for an extended period of time. She is complaining of pain to the left buttock area. She states she did not hit her head. I believe that she is fallen a few times recently. She was transported here by paramedics and on arrival she had a great deal of diarrhea and urine in her brief. Related Data Home Medications ?Medication ?Instructions ?Recorded ?Confirmed allopurinol 300 mg tablet 300 mg PO Q24H 07/02/23 04/19/24 aspirin 81 mg tablet,delayed 81 mg PO DAILY 07/02/23 04/19/24 release (Adult Aspirin Regimen) atorvastatin 40 mg tablet 40 mg PO Q24H 07/02/23 04/19/24 baclofen 10 mg tablet 10 mg PO Q24H 07/02/23 04/19/24 calcium 315 mg (as 1 tab PO BID 07/02/23 07/02/23 citrate)-vitamin D3 5 mcg (200 unit) tablet candesartan 32 mg tablet 32 mg PO DAILY 07/02/23 07/02/23 dulaglutide 1.5 mg/0.5 mL 1.5 mg subcut PRN 07/02/23 07/02/23 subcutaneous pen injector (Trulicity) hydralazine 100 mg tablet 25 mg PO Q8H 07/02/23 04/19/24 insulin glargine U-300 conc 300 30 unit subcut Q24H 07/02/23 04/19/24 unit/mL (3 mL) subcutaneous pen (Toujeo Max U-300 SoloStar) insulin lispro 100 unit/mL 1 sliding scale dose subcut PRN 07/02/23 04/19/24 subcutaneous solution (Humalog U-100 Insulin) meloxicam 15 mg tablet 15 mg PO Q24H 07/02/23 04/19/24 omeprazole 40 mg capsule,delayed 40 mg PO Q24H 07/02/23 04/19/24 release potassium chloride 20 mEq 20 meq PO BID 07/02/23 04/19/24 tablet,extended release (K-Tab) torsemide 20 mg tablet 20 mg PO Q12H 07/02/23 04/19/24 carvedilol 6.25 mg tablet (Coreg) 6.25 mg PO BID 04/19/24 04/19/24 clopidogrel 75 mg tablet (Plavix) 75 mg PO DAILY 04/19/24 04/19/24 dapagliflozin propanediol 10 mg 10 mg PO DAILY 04/19/24 04/19/24 tablet (Farxiga) dulaglutide 1.5 mg/0.5 mL 1.5 mg subcut QWEEK 04/19/24 04/19/24 subcutaneous pen injector (Trulicity) insulin glargine U-300 conc 300 100 unit subcut DAILY 04/19/24 04/19/24 unit/mL (3 mL) subcutaneous pen (Toujeo Max U-300 SoloStar) nitroglycerin 0.3 mg sublingual 0.3 mg sublingual Q5M 04/19/24 04/19/24 tablet pregabalin 25 mg capsule mg 04/19/24 sacubitril 49 mg-valsartan 51 mg 1 tab PO BID 04/19/24 04/19/24 tablet (Entresto) spironolactone 25 mg tablet 25 mg PO DAILY 04/19/24 04/19/24 (Aldactone) torsemide 20 mg tablet 20 mg PO DAILY 04/19/24 04/19/24 Previous Rx's ?Medication ?Instructions ?Recorded clotrimazole 2 % vaginal cream 1 appful vaginal .qhs #21 grams 12/13/23 (Gyne-Lotrimin) hydrocortisone 0.5 % topical 1 applic topical DAILY PRN rash 12/13/23 ointment #56 grams Allergies Allergy/AdvReac Type Severity Reaction Status Date / Time gabapentin Allergy Mild rash Verified 06/13/24 04:58 Opioid HPI Opioid Management Most Recent Opioid Data: Last Pain Scale 1 04/19/24 02:32 04/19/24 Review of Systems ROS Narrative A ten point review of systems is negative except as noted above. PFSH PFSH Social History Little interest or pleasure in doing things: not at all Feeling down, depressed, or hopeless: not at all Exam Narrative Exam Narrative: Nurses note and vital signs reviewed and patient is not hypoxic. General: The patient appears in no apparent distress. Skin: Warm, dry, no pallor noted. There is no rash noted. Head: Normocephalic, atraumatic Eye: Normal conjunctiva, no drainage Ears, Nose, Mouth, and Throat: oral mucosa is moist. Nares patent. Cardiovascular: Regular Rate and Rhythm Respiratory: Patient is in no distress, no accessory muscle use, lungs are clear to auscultation, no wheezing, rales or rhonchi GI: Obese and nontender Musculoskeletal: No deformity in her extremities. On each of her heels is a 1- 1/4 cm superficial ulceration. On the right buttock there are 2 superficial ulcerations as well. Neurological: A&O x4, normal speech Psychiatric: Cooperative Constitutional Vital Signs, click to edit/add: Last Vital Signs Temp 98.7 F 06/13/24 04:53 Pulse 69 06/13/24 04:53 Resp 06/13/24 04:53 BP 128/90 06/13/24 04:53 Pulse Ox 97 06/13/24 04:53 O2 Del Method Room Air 06/13/24 04:53 Course Vital Signs Vital signs: Vital Signs Temperature 98.7 F 06/13/24 04:53 Pulse Rate 69 06/13/24 04:53 Respiratory Rate 06/13/24 04:53 Blood Pressure 128/90 06/13/24 04:53 Pulse Oximetry 97 06/13/24 04:53 Oxygen Delivery Method Room Air 06/13/24 04:53 Temperature 98.7 F 06/13/24 04:53 Pulse Rate 69 06/13/24 04:53 Respiratory Rate 06/13/24 04:53 Blood Pressure 128/90 06/13/24 04:53 Pulse Oximetry 97 06/13/24 04:53 Oxygen Delivery Method Room Air 06/13/24 04:53 Medical Decision Making MDM Narrative Medical decision making narrative: The patient has UTI. Urine culture as well as blood cultures are ordered and she was given IV Rocephin. She has generalized weakness and is unable to walk and is being admitted. BUN and creatinine are slightly elevated from her baseline as well and she was given IV fluids. Findings are discussed with the patient. Differential Diagnosis Differential Diagnosis: UTI, fracture, dehydration, anemia Lab Data Lab results reviewed: Yes I reviewed the patient's lab results Labs: Lab Results 06/13/24 06/13/24 Range/Units 05:10 05:40 WBC 11.5 H (4.0-11.0) 10^3/uL RBC 4.12 L (4.20-5.40) 10^6/uL Hgb 12.2 (12.0-16.0) g/dL Hct 38.5 (36.0-48.0) % MCV 93.4 (81.0-99.0) fL MCH 29.6 (26.7-34.0) pg MCHC 31.7 (29.9-35.2) g/dL RDW 16.5 H (11.0-15.0) % Plt Count 260 (150-450) 10^3/uL MPV 9.8 (9.5-13.5) fL Seg Neuts % (Manual) 84.0 H (43.0-75.0) Lymphocytes % (Manual) 8.0 L (20.5-60.0) % Monocytes % (Manual) 8.0 (1.7-12.0) % Eosinophils % (Manual) 0.0 L (0.9-7.0) % Basophils % (Manual) 0.0 L (0.2-2.0) % Neutrophils # (Manual) 9.66 H (1.4-6.5) 10^3/uL Lymphocytes # (Manual) 0.92 L (1.20-3.80) 10^3/uL Monocytes # (Manual) 0.92 H (0.30-0.80) 10^3/uL Eosinophils # (Manual) 0.00 (0.00-0.70) 10^3/uL Basophils # (Manual) 0.00 (0.00-0.10) 10^3/uL Sodium 139 (136-145) mmol/L Potassium 4.5 (3.5-5.1) mmol/L Chloride 104 (98-107) mmol/L Carbon Dioxide 23.3 (21.0-32.0) mmol/L Anion Gap 16.2 BUN 27.0 H (7.0-18.0) mg/dL Creatinine 1.56 H (0.55-1.02) mg/dL Est GFR ( Amer) 40 L (>=60 mL/min/1.73m^2) Est GFR (Non-Af Amer) 33 L (>=60 mL/min/1.73m^2) BUN/Creatinine Ratio 17.3 Glucose 243 H (74-106) mg/dL Calcium 10.1 (8.5-10.1) mg/dL Total Creatine Kinase 210 H (26-192) U/L Urine Color Yellow (YELLOW) Urine Clarity Cloudy A (CLEAR) Urine pH 5.5 (5.0-9.0) Ur Specific [place] 1.020 (1.005-1.025) Urine Protein 30 A (NEG/TRACE) mg/dL Urine Glucose (UA) >=1000 A (NEGATIVE) mg/dL Urine Ketones Negative (NEGATIVE) mg/dL Urine Occult Blood Small A (NEGATIVE) Urine Nitrite Positive A (NEGATIVE) Urine Bilirubin Negative (NEGATIVE) Urine Urobilinogen 0.2 (0.2-1.0) EU/dL Ur Leukocyte Esterase Small A (NEGATIVE) Urine RBC 0-2 (0-2) #/HPF Urine WBC >100 A (NONE SEEN) #/HPF Ur Squamous Epith Cells Few A (NONE/RARE) #/LPF Urine Crystals None seen (None Seen) #/HPF Urine Bacteria Large A (NONE SEEN) #/HPF Urine Casts None seen (NONE SEEN) #/LPF Urine Mucus None seen (NONE SEEN) Urine Yeast Seen A (NONE SEEN) Ur Culture Indicated? Yes Ref Lab Order Date 06/13/24 Ref Lab Test Name Urine culture Ref Test Addition Info [facility] Imaging Data Chest x-ray: Radiologist's impression: ITS Impressions Chest X-Ray 06/13/24 04:57 IMPRESSION: There is a small left pleural effusion which may been present on the previous examination. There is otherwise no acute cardiopulmonary process. Chronic findings as described in the body the report. Electronically authenticated by: GEREMIAS ROBETRS Date: 06/13/2024 06:13 Hip X-Ray 06/13/24 04:57 IMPRESSION: There is no acute process. There is no fracture. Chronic findings as described in the body the report. Electronically authenticated by: GEREMIAS ROBERTS Date: 06/13/2024 06:18 Lumbar Spine X-Ray 06/13/24 04:57 IMPRESSION: 1. No acute lumbar spine findings. Chronic degenerative and postsurgical changes are described above. 2. Gaseous prominence of the stomach, small bowel and colon may be normal or reflect a mild ileus. Electronically authenticated by: HECTOR HERNANDEZ Date: 06/13/2024 06:19 Knee X-Ray 06/13/24 05:42 IMPRESSION: There is no acute process. There is no fracture. There is no joint effusion at the knee. Slight lateral subluxation of the proximal tibia with respect to the distal femur. Severe tricompartmental degenerative changes. The bony structures are osteopenic. Extensive atheromatous calcifications. Electronically authenticated by: GEREMIAS ROBERTS Date: 06/13/2024 06:15 ECG Data Attestation: I personally reviewed and interpreted this ECG as follows: (EKG on my interpretation shows sinus rhythm with first-degree block) Discharge Plan Discharge Chief Complaint: Fall Clinical Impression: Urinary tract infection, Fall Patient Disposition: Admitted As Inpatient Time of Disposition Decision: 06:22 Condition: Fair
[2024-06-13 05:27] LABS: Hematocrit 38.5 % (36.0-48.0); Hemoglobin 12.2 g/dL (12.0-16.0); Mean Corpuscular HGB Conc 31.7 g/dL (29.9-35.2); Mean Corpuscular Hemoglobin 29.6 pg (26.7-34.0); Mean Corpuscular Volume 93.4 fL (81.0-99.0); Mean Platelet Volume 9.8 fL (9.5-13.5); Platelet Count 260 10^3/uL (150-450); Red Blood Count 4.12 10^6/uL (4.20-5.40); Red Cell Distribution Width 16.5 % (11.0-15.0); White Blood Count 11.5 10^3/uL (4.0-11.0)
--- NOTE | 2024-06-13 05:42 | XR_ITS ---
The [address] [address] Patient Name: LAURA LAWSON MRN: [facility]:[id number] date: 1950 Sex: F Assigned Patient Location: ER Current Patient Location: ER Accession/Order Number: [id number] Exam Date: 06/13/2024 05:45 Report Date: 06/13/2024 06:15 At the request of: MARIYA ORTEGA Procedure: XR knee LT 2V EXAM: XR knee LT 2V HISTORY: fall COMPARISON: None. TECHNIQUE: AP and lateral views of the left knee performed. FINDINGS: The bony structures are osteopenic. There is no fracture. There is slight lateral subluxation of the proximal tibia with respect to the distal femur. There are severe tricompartmental degenerative changes. There is no joint effusion at the knee. There are extensive atheromatous calcifications. XR/XR knee LT 2V IMPRESSION: There is no acute process. There is no fracture. There is no joint effusion at the knee. Slight lateral subluxation of the proximal tibia with respect to the distal femur. Severe tricompartmental degenerative changes. The bony structures are osteopenic. Extensive atheromatous calcifications. Electronically authenticated by: GEREMIAS ROBERTS Date: 06/13/2024 06:15
[2024-06-13 05:43] LABS: Anion Gap 16.2; BUN Creatinine Ratio 17.3; Calcium 10.1 mg/dL (8.5-10.1); Carbon Dioxide 23.3 mmol/L (21.0-32.0); Chloride 104 mmol/L (98-107); Creatine Kinase 210 U/L (26-192); Estimated GFR (African America 40 (>=60 mL/min/1.73m^2); Estimated GFR (Non-African Ame 33 (>=60 mL/min/1.73m^2); Glucose 243 mg/dL (74-106); Potassium 4.5 mmol/L (3.5-5.1); Sodium 139 mmol/L (136-145)
[2024-06-13 05:46] LABS: Bilirubin Urine NEGATIVE (NEGATIVE); Blood Urine SMALL (NEGATIVE); Color Urine YELLOW (YELLOW); Glucose Urine UA >=1000 mg/dL (NEGATIVE); Ketones Urine NEGATIVE (NEGATIVE); Leukocyte Esterase Urine SMALL (NEGATIVE); Nitrite Urine POSITIVE (NEGATIVE); Protein Urine 30 mg/dL (NEG/TRACE); Urobilinogen Urine 0.2 EU/dL (0.2-1.0); pH Urine 5.5 (5.0-9.0)
[2024-06-13 05:49] LABS: Lymphocytes Absolute Manual 0.92 10^3/uL (1.20-3.80); Monocytes Absolute Manual 0.92 10^3/uL (0.30-0.80); Segmented Neut Absolute Manual 9.66 10^3/uL (1.4-6.5)
[2024-06-13 06:01] LABS: Clarity Urine CLOUDY (CLEAR)
[2024-06-13 06:04] LABS: Bacteria Urine LARGE #/HPF (NONE SEEN); RBC Urine 0-2 #/HPF (0-2); WBC Urine >100 #/HPF (NONE SEEN)
[2024-06-13] MEDS: 0.9 % SODIUM CHLORIDE 1,000 ML 100 ML IV (06:04)
[2024-06-13 06:05] LABS: Cast Seen? NONE SEEN #/LPF (NONE SEEN); Crystals Seen? None Seen #/HPF (None Seen); Mucus Urine NONE SEEN (NONE SEEN); Squamous Epithelial Cell Urine FEW #/LPF (NONE/RARE); Urine Culture Indicated YES
[2024-06-13 06:06] LABS: BOX Test Reference Lab Firelands
[2024-06-13] MEDS: CEFTRIAXONE 1,000 MG in 0.9 % SODIUM CHLORIDE 50 ML 100 MG IV (07:15)
[2024-06-13] MEDS: LACTATED RINGER'S SOLUTION 1,000 ML 125 ML IV ×2 (10:03→16:44)
[2024-06-13] MEDS: CALCIUM CARBONATE 600 MG/VITAMIN D3 400 IU TABLET 1 TAB PO ×2 (11:04→22:55)
[2024-06-13] MEDS: CANAGLIFLOZIN 100 MG TABLET 300 MG PO (11:04)
[2024-06-13] MEDS: EZETIMIBE 10 MG TABLET PO (11:05)
[2024-06-13] MEDS: SACUBITRIL/VALSARTAN 24 MG-26 MG TABLET 4 TAB PO ×2 (11:05→22:55)
[2024-06-13] MEDS: ASPIRIN 81 MG TABLET.DR PO (11:05)
[2024-06-13] MEDS: COLCHICINE 0.6 MG TABLET PO (11:05)
[2024-06-13] MEDS: APIXABAN 5 MG TABLET PO ×2 (11:05→22:56)
[2024-06-13] MEDS: TICAGRELOR 90 MG TABLET PO ×2 (11:06→22:55)
[2024-06-13] MEDS: METOPROLOL SUCCINATE 50 MG TAB.ER.24H 75 MG PO (11:06)
[2024-06-13] MEDS: CARVEDILOL 6.25 MG TABLET PO ×2 (11:06→22:56)
[2024-06-13] MEDS: CLOPIDOGREL BISULFATE 75 MG TABLET PO (11:06)
[2024-06-13] MEDS: SPIRONOLACTONE 25 MG TABLET PO (11:07)
[2024-06-13] MEDS: HYDRALAZINE HCL 25 MG TABLET PO ×2 (11:07→22:56)
[2024-06-13] MEDS: TORSEMIDE 20 MG TABLET PO (11:07)
[2024-06-13] MEDS: LOSARTAN POTASSIUM 50 MG TABLET 100 MG PO (11:08)
[2024-06-13] MEDS: BACLOFEN 10 MG TABLET PO (11:10)
[2024-06-13] MEDS: OMEPRAZOLE 40 MG CAPSULE.DR PO (11:10)
[2024-06-13] MEDS: ALLOPURINOL 300 MG TABLET PO (11:10)
--- NOTE | 2024-06-13 11:40 | P.HP_ITS ---
HPI H&P: HPI History of Present Illness Chief complaint: FALL/UTI Narrative: 73 y o female with hx of Obesity, chronic back and knee pain, lives with her family and uses Walker to ambulate. She reports two episodes of fall, one episode today when her legs gave out while she was walking using a walker and the other episode yesterday when she fell in a similar fashion. Denies head trauma, LOC. Patient was evaluated in ED. She was found to have UTI. No acute findings were noted on CXR, Knee/hip and Lumbar XR. Patient currently reports low back pain with left sided radiation and inability to move her LLE due to back pain and knee pain. Patient admitted for observation for UTI, frequent falls, ambulatory dysfunction and inability to ambulate using a walker. She reports being in her usual state of health prior to her falls. Opioid HPI Opioid Management Most Recent Pain and Opioid Data: Last Pain Scale 5 06/13/24 11:42 06/13/24 Last Pain Assessment 06/13/24 13:50 Last ORT Total Score 0 06/13/24 09:20 06/13/24 Last ORT Risk Category Low Risk 06/13/24 09:20 06/13/24 Review of Systems ROS Status of ROS 10 or more systems reviewed and unremark able except as noted in history and below [facility] Medical History (Updated 06/13/24 @ 14:52 by Shaikh Lonnie MD) CAD (coronary artery disease) ?I25.10 - Atherosclerotic heart disease of [place] coronary artery without angina pectoris (ICD-10) HLD (hyperlipidemia) ?E78.5 - Hyperlipidemia, unspecified (ICD-10) Knee pain, chronic ?M25.569 - Pain in unspecified knee (ICD-10) ?G89.29 - Other chronic pain (ICD-10) Chronic back pain ?M54.9 - Dorsalgia, unspecified (ICD-10) ?G89.29 - Other chronic pain (ICD-10) CKD stage 3 secondary to diabetes ?E11.22 - Type 2 diabetes mellitus with diabetic chronic kidney disease (ICD- 10) ?N18.30 - Chronic kidney disease, stage 3 unspecified (ICD-10) Obesity ?E66.9 - Obesity, unspecified (ICD-10) HFrEF (heart failure with reduced ejection fraction) ?I50.20 - Unspecified systolic (congestive) heart failure (ICD-10) High cholesterol ?E78.00 - Pure hypercholesterolemia, unspecified (ICD-10) Hypertension ?I10 - Essential (primary) hypertension (ICD-10) Diabetes ?E11.9 - Type 2 diabetes mellitus without complications (ICD-10) Surgical History (Updated 06/13/24 @ 09:53 by Zoraida Rodriguez) Carpal tunnel syndrome of left wrist ?G56.02 - Carpal tunnel syndrome, left upper limb (ICD-10) Stented coronary artery ?Z95.5 - Presence of coronary angioplasty implant and graft (ICD-10) Hx of appendectomy ?Z90.49 - Acquired absence of other specified parts of digestive tract (ICD- 10) H/O: hysterectomy ?Z90.710 - Acquired absence of both cervix and uterus (ICD-10) Family History (Updated 06/13/24 @ 09:54 by Zoraida Rodriguez) Father Family history of CHF (congestive heart failure) Family history of diabetes mellitus Family history of hypertension Family history of myocardial infarction Grandfather Family history of cancer Social History (Updated 06/13/24 @ 09:55 by Zoraida Rodriguez) Within the past year, how often did you have a drink containing alcohol: never Score interpretation: A score less than 3 is consistent with normal alcohol consumption. Smoking status: Never smoker Non-prescribed substance use: denies use Previous occupational history: disabled Highest level of school completed/degree received: high school graduate Are you now , , , , never or living with a partner: living with partner Little interest or pleasure in doing things: not at all Feeling down, depressed, or hopeless: not at all Meds Home Medications and Allergies Home Medications ?Medication ?Instructions ?Recorded ?Confirmed ?Type allopurinol 300 mg tablet 300 mg PO Q24H 07/02/23 06/13/24 History aspirin 81 mg tablet,delayed 81 mg PO DAILY 07/02/23 06/13/24 History release (Adult Aspirin Regimen) baclofen 10 mg tablet 10 mg PO Q24H 07/02/23 06/13/24 History calcium 315 mg (as 1 tab PO BID 07/02/23 06/13/24 History citrate)-vitamin D3 5 mcg (200 unit) tablet candesartan 32 mg tablet 32 mg PO DAILY 07/02/23 06/13/24 History insulin glargine U-300 conc 300 30 unit subcut Q24H 07/02/23 06/13/24 History unit/mL (3 mL) subcutaneous pen (Toujeo Max U-300 SoloStar) insulin lispro 100 unit/mL 1 sliding scale dose subcut PRN 07/02/23 06/13/24 History subcutaneous solution (Humalog U-100 Insulin) meloxicam 15 mg tablet 15 mg PO Q24H 07/02/23 06/13/24 History omeprazole 40 mg capsule,delayed 40 mg PO Q24H 07/02/23 06/13/24 History release potassium chloride 20 mEq 20 meq PO DAILY 07/02/23 06/13/24 History tablet,extended release (K-Tab) carvedilol 6.25 mg tablet (Coreg) 6.25 mg PO BID 04/19/24 06/13/24 History clopidogrel 75 mg tablet (Plavix) 75 mg PO DAILY 04/19/24 06/13/24 History dapagliflozin propanediol 10 mg 10 mg PO DAILY 04/19/24 06/13/24 History tablet (Farxiga) dulaglutide 1.5 mg/0.5 mL 1.5 mg subcut QWEEK 04/19/24 06/13/24 History subcutaneous pen injector (Trulicity) insulin glargine U-300 conc 300 100 unit subcut DAILY 04/19/24 06/13/24 History unit/mL (3 mL) subcutaneous pen (Toujeo Max U-300 SoloStar) nitroglycerin 0.3 mg sublingual 0.3 mg sublingual Q5M 04/19/24 06/13/24 History tablet pregabalin 25 mg capsule 25 mg PO Q12H 04/19/24 06/13/24 History spironolactone 25 mg tablet 25 mg PO DAILY 04/19/24 06/13/24 History (Aldactone) torsemide 20 mg tablet 20 mg PO DAILY 04/19/24 06/13/24 History apixaban 5 mg tablet (Eliquis) 5 mg PO Q12H 06/13/24 06/13/24 History atorvastatin 80 mg tablet 80 mg PO QPM 06/13/24 06/13/24 History colchicine 0.6 mg tablet 0.6 mg PO DAILY 06/13/24 06/13/24 History ezetimibe 10 mg tablet 10 mg PO DAILY 06/13/24 06/13/24 History hydralazine 25 mg tablet 25 mg PO Q12H 06/13/24 06/13/24 History lidocaine 5 % topical patch 1 patch topical Q24H 06/13/24 06/13/24 History metoprolol succinate 50 mg 75 mg PO DAILY 06/13/24 06/13/24 History tablet,extended release 24 hr rosuvastatin 20 mg tablet 20 mg PO DAILY 06/13/24 06/13/24 History sacubitril 97 mg-valsartan 103 mg 1 tab PO BID 06/13/24 06/13/24 History tablet (Entresto) semaglutide 0.25 mg or 0.5 mg (2 0.25 mg subcut .QWK 06/13/24 06/13/24 History mg/3 mL) subcutaneous pen injector (Ozempic) ticagrelor 90 mg tablet (Brilinta) 90 mg PO Q12H 06/13/24 06/13/24 History Allergies Allergy/AdvReac Type Severity Reaction Status Date / Time gabapentin Allergy Mild rash Verified 06/13/24 04:58 Exam Constitutional Vital Signs, click to edit/add: Last Vital Signs Temp 97.3 F L 06/13/24 09:20 Pulse 67 06/13/24 09:20 Resp 20 06/13/24 09:20 BP 147/69 H 06/13/24 09:20 Pulse Ox 96 06/13/24 09:20 O2 Del Method Room Air 06/13/24 09:20 Documenting provider has reviewed patient's vital signs: yes Common normals: no apparent distress and oriented x3 General appearance: cooperative HENVT Common normals: normocephalic and head/scalp atraumatic Head and scalp: normocephalic and atraumatic Eye Common normals: conjunctivae normal and no scleral icterus Conjunctiva: conjunctiva(e) normal Respiratory Common normals: normal respiratory effort and clear to auscultation bilaterally Effort & inspection: able to speak in complete sentences Auscultation: clear to auscultation bilaterally Cardio Common normals: regular rate, S1 normal heart sound and S2 normal heart sound Rate: regular rate Heart sounds: S1 normal and S2 normal GI Common normals: Normal to inspection, nondistended, normoactive bowel sounds present, soft to palpation, non-tender and no hepatosplenomegaly Palpation: soft and no hepatosplenomegaly Extremity Common normals: no clubbing, cyanosis or edema Other: Left Hip/Knee reduced ROM due to pain Neuro Common normals: oriented x3, moves all extremities and no focal motor deficits Psych Common normals: mental status grossly normal, denies hallucinations, denies homicidal ideation and denies suicidal ideation Results Labs Labs: Short CBC 06/13/24 Range/Units 05:10 WBC 11.5 H (4.0-11.0) 10^3/uL Hgb 12.2 (12.0-16.0) g/dL Hct 38.5 (36.0-48.0) % Plt Count 260 (150-450) 10^3/uL BMP 06/13/24 05:10 Sodium 139 Potassium 4.5 Chloride 104 Carbon Dioxide 23.3 BUN 27.0 H Creatinine 1.56 H Glucose 243 H Calcium 10.1 Cardiac Enzymes 06/13/24 Range/Units 05:10 Total Creatine Kinase 210 H (26-192) U/L Urine 06/13/24 Range/Units 05:40 Urine Color Yellow (YELLOW) Urine Clarity Cloudy A (CLEAR) Urine pH 5.5 (5.0-9.0) Ur Specific [place] 1.020 (1.005-1.025) Urine Protein 30 A (NEG/TRACE) mg/dL Urine Glucose (UA) >=1000 A (NEGATIVE) mg/dL Assessment and Plan Assessment and Plan (1) Urinary tract infection: Qualifiers: Urinary tract infection type: acute cystitis Hematuria presence: without hematuria Qualified Code(s): N30.00 - Acute cystitis without hematuria (2) Obesity: Qualifiers: Obesity type: due to excess calories Obesity classification: adult class 2 (BMI 35 - 39.9) Serious obesity comorbidity presence: without serious comorbidity Body mass index: BMI 36.0-36.9 Qualified Code(s): E66.812 - Obesity, class 2; E66.09 - Other obesity due to excess calories; Z68.36 - Body mass index [BMI] 36.0-36.9, adult (3) Fall: Qualifiers: Encounter type: subsequent encounter Qualified Code(s): W19.XXXD - Unspecified fall, subsequent encounter (4) Knee pain, chronic: Qualifiers: Laterality: left Qualified Code(s): M25.562 - Pain in left knee; G89.29 - Other chronic pain (5) Chronic back pain: Qualifiers: Back pain location: low back pain Back pain laterality: left Sciatica presence: with sciatica Sciatica laterality: sciatica of left side Qualified Code(s): M54.42 - Lumbago with sciatica, left side; G89.29 - Other chronic pain (6) HFrEF (heart failure with reduced ejection fraction): (7) Hypertension: Qualifiers: Hypertension type: primary hypertension Qualified Code(s): I10 - Essential (primary) hypertension (8) Diabetes: Qualifiers: Diabetes mellitus type: type 2 Diabetes mellitus intermediate insulin use: with intermediate use Diabetes mellitus complication status: with kidney complications Diabetes mellitus complication detail: with chronic kidney disease Chronic kidney disease stage: stage 3 (moderate) Chronic kidney disease stage 3 subtype: stage 3a (GFR 45-59) Qualified Code(s): E11.22 - Type 2 diabetes mellitus with diabetic chronic kidney disease; N18.31 - Chronic kidney disease, stage 3a; 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 transplanted heart: [place] heart Associated angina: without angina Qualified Code(s): I25.10 - Atherosclerotic heart disease of [place] coronary artery without angina pectoris Plan Patient started on IV rocephin for UTI. No acute fx or dislocation on XR of Hip/knee. PT/OT eval and treatment ordered. Pain control with PO/IV medications. F/u urine cx. Resume patient's home medications. Urinary Catheter Management Urinary Catheter Management Straight: Cath placed during this visit: yes Urethral indwelling: No Insertion date: 06/13/24 Insertion time: 05:20
[2024-06-13 17:07] LABS: Glucometer 213 mg/dL (74-106)
[2024-06-13] MEDS: INSULIN ASPART 300 UNIT/3 ML PEN SUBQ ×2 (17:11→22:56)
[2024-06-13 22:53] LABS: Glucometer 221 mg/dL (74-106)
[2024-06-13] MEDS: ATORVASTATIN CALCIUM 40 MG TABLET 80 MG PO (22:55)
[2024-06-13] MEDS: ATORVASTATIN CALCIUM 40 MG TABLET PO (22:55)
[2024-06-14] VITALS (7 sets, daily range): BP systolic 102–147; BP diastolic 56–68; PULSE 58–68; TEMP 36.4–36.8; O2SAT 92–96
[2024-06-14] MEDS: LACTATED RINGER'S SOLUTION 1,000 ML 125 ML IV ×3 (00:34→18:46)
[2024-06-14 06:46] LABS: Basophils Percent Auto 0.4 % (0.2-2.0); Eosinophils Absolute Auto 0.1 10^3/uL (0.0-0.7); Eosinophils Percent Auto 1.3 % (0.9-7.0); Hematocrit 37.4 % (36.0-48.0); Immature Granulocytes Abs Auto 0.04 10^3/uL (0.00-0.03); Immature Granulocytes Pct Auto 0.4 % (0.0-0.5); Lymphocytes Percent Auto 8.8 % (20.5-60.0); Mean Corpuscular HGB Conc 32.1 g/dL (29.9-35.2); Mean Corpuscular Hemoglobin 30.2 pg (26.7-34.0); Monocytes Absolute Auto 1.2 10^3/uL (0.3-0.8); Neutrophils Absolute Auto 8.6 10^3/uL (1.4-6.5); Neutrophils Percent Auto 78.1 % (43.0-75.0); Platelet Count 253 10^3/uL (150-450); Red Blood Count 3.98 10^6/uL (4.20-5.40); Red Cell Distribution Width 16.9 % (11.0-15.0); White Blood Count 11.1 10^3/uL (4.0-11.0)
[2024-06-14 07:09] LABS: Alanine Aminotransferase 25 U/L (14-59); Albumin Globulin Ratio 0.8; Albumin Level 2.9 g/dL (3.4-5.0); Alkaline Phosphatase 90 U/L (46-116); Anion Gap 13.9; Aspartate Amino Transferase 20 U/L (15-37); Calcium 10.4 mg/dL (8.5-10.1); Carbon Dioxide 24.9 mmol/L (21.0-32.0); Chloride 107 mmol/L (98-107); Estimated GFR (African America 48 (>=60 mL/min/1.73m^2); Estimated GFR (Non-African Ame 40 (>=60 mL/min/1.73m^2); Globulin 3.5 g/dL; Glucose 183 mg/dL (74-106); Potassium 3.8 mmol/L (3.5-5.1); Sodium 142 mmol/L (136-145); Total Protein 6.4 g/dL (6.4-8.2)
--- NOTE | 2024-06-14 09:00 | CM.NOTE ---
Case Management and Dr. Fleming spoke with pt about OBS status and not having qualifying diagnosis for inpatient stay. If pt would need to go to skilled facility at discharge it would be an out of pocket cost.
[2024-06-14 09:05] LABS: Glucometer 178 mg/dL (74-106)
[2024-06-14] MEDS: CEFTRIAXONE 1,000 MG in 0.9 % SODIUM CHLORIDE 50 ML 100 MG IV (09:47)
[2024-06-14] MEDS: METOPROLOL SUCCINATE 50 MG TAB.ER.24H 75 MG PO (09:50)
[2024-06-14] MEDS: HYDRALAZINE HCL 25 MG TABLET PO (09:50)
[2024-06-14] MEDS: APIXABAN 5 MG TABLET PO ×2 (09:51→21:31)
[2024-06-14] MEDS: ASPIRIN 81 MG TABLET.DR PO (09:51)
[2024-06-14] MEDS: LOSARTAN POTASSIUM 50 MG TABLET 100 MG PO (09:51)
[2024-06-14] MEDS: COLCHICINE 0.6 MG TABLET PO (09:51)
[2024-06-14] MEDS: CALCIUM CARBONATE 600 MG/VITAMIN D3 400 IU TABLET 1 TAB PO ×2 (09:51→21:31)
[2024-06-14] MEDS: CLOPIDOGREL BISULFATE 75 MG TABLET PO (09:51)
[2024-06-14] MEDS: TICAGRELOR 90 MG TABLET PO ×2 (09:51→21:34)
[2024-06-14] MEDS: OMEPRAZOLE 40 MG CAPSULE.DR PO (09:51)
[2024-06-14] MEDS: BACLOFEN 10 MG TABLET PO (09:51)
[2024-06-14] MEDS: OXYCODONE HCL 5 MG TABLET PO (09:51)
[2024-06-14] MEDS: ALLOPURINOL 300 MG TABLET PO (09:52)
[2024-06-14] MEDS: CANAGLIFLOZIN 100 MG TABLET 300 MG PO (09:52)
[2024-06-14] MEDS: TORSEMIDE 20 MG TABLET PO (09:52)
[2024-06-14] MEDS: SPIRONOLACTONE 25 MG TABLET PO (09:52)
[2024-06-14] MEDS: EZETIMIBE 10 MG TABLET PO (09:52)
[2024-06-14] MEDS: SACUBITRIL/VALSARTAN 24 MG-26 MG TABLET 4 TAB PO ×2 (09:52→21:31)
[2024-06-14] MEDS: INSULIN GLARGINE 300 UNIT/3 ML INSULN.PEN 100 UNIT SQ (09:52)
[2024-06-14] MEDS: CARVEDILOL 6.25 MG TABLET PO ×2 (09:52→21:31)
[2024-06-14] MEDS: ACETAMINOPHEN 325 MG TABLET 650 MG PO (09:52)
--- NOTE | 2024-06-14 10:07 | CM.NOTE ---
Rounds made with Dr. Fleming, discussed plan of care with pt and need to participate with PT to develop plan of care. Pt at this time refuses to get out of bed d/t pain. Dr. Fleming discussed [facility] pt about requesting pain medication and importance of PT for strengthening. Pt will continue in OBS status.
--- NOTE | 2024-06-14 10:32 | P.IMPN_ITS ---
Progress Note: A&P Assessment and Plan (1) Urinary tract infection: Assessment and Plan: C/w rocephine. F/u urine cx Qualifiers: Hematuria presence: without hematuria Urinary tract infection type: acute cystitis Qualified Code(s): N30.00 - Acute cystitis without hematuria (2) Fall: Assessment and Plan: PT/OT eval ordered. Qualifiers: Encounter type: subsequent encounter Qualified Code(s): W19.XXXD - Unspecified fall, subsequent encounter (3) Knee pain, chronic: Assessment and Plan: Acute worsening since pain. No acute finding on XR. C/w supportive measures, PT/OT jair/rx. Qualifiers: Laterality: left Qualified Code(s): M25.562 - Pain in left knee; G89.29 - Other chronic pain (4) Chronic back pain: Assessment and Plan: Acute worsening since fall. Not moving and laying bed. Encouraged to move/ambulate and participate in PT. Qualifiers: Back pain location: low back pain Back pain laterality: left Sciatica presence: with sciatica Sciatica laterality: sciatica of left side Qualified Code(s): M54.42 - Lumbago with sciatica, left side; G89.29 - Other chronic pain (5) HFrEF (heart failure with reduced ejection fraction): Assessment and Plan: Euvolemic. C/w home medications. (6) Hypertension: Assessment and Plan: Stable BP. c/w home medications Qualifiers: Hypertension type: primary hypertension Qualified Code(s): I10 - Essential (primary) hypertension (7) Obesity: Assessment and Plan: Morbidly obese. Recommended weight loss. Qualifiers: Obesity type: due to excess calories Obesity classification: adult class 2 (BMI 35 - 39.9) Serious obesity comorbidity presence: without serious comorbidity Body mass index: BMI 36.0-36.9 Qualified Code(s): E66.812 - Obesity, class 2; E66.09 - Other obesity due to excess calories; Z68.36 - Body mass index [BMI] 36.0-36.9, adult (8) Diabetes: Assessment and Plan: C/w basal/bolus insulin. On SSI. 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 Monitor. (10) CAD (coronary artery disease): Assessment and Plan: Stable. No active chest pain. Monitor. Qualifiers: Coronary Disease-Associated Artery/Lesion type: [place] artery [place] vs. transplanted heart: [place] heart Associated angina: without angina Qualified Code(s): I25.10 - Atherosclerotic heart disease of [place] coronary artery without angina pectoris Internal Medicine - PN: Subj Subjective Interval history: Seen and examined. No overnight events. Patient reports poorly controlled low back pain and knee pain. Exam Constitutional Vital Signs, click to edit/add: Last Vital Signs Temp 98.1 F 06/14/24 08:49 Pulse 68 06/14/24 08:49 Resp 18 06/14/24 08:49 BP 109/58 06/14/24 08:49 Pulse Ox 96 06/14/24 08:49 O2 Del Method Room Air 06/14/24 08:49 Documenting provider has reviewed patient's vital signs: yes Common normals: no apparent distress and oriented x3 General appearance: cooperative Respiratory Common normals: normal respiratory effort and clear to auscultation bilaterally Effort & inspection: able to speak in complete sentences Auscultation: clear to auscultation bilaterally Cardio Common normals: regular rate, S1 normal heart sound and S2 normal heart sound Rate: regular rate Heart sounds: S1 normal and S2 normal Extremity Common normals: no clubbing, cyanosis or edema Other: Left Hip/Knee reduced ROM due to pain Neuro Common normals: oriented x3, moves all extremities and no focal motor deficits Psych Common normals: mental status grossly normal, denies hallucinations, denies homicidal ideation and denies suicidal ideation Internal Medicine - PN: Obj Da Labs Labs: Laboratory Results - last 24 hr 06/13/24 06/13/24 06/14/24 17:05 22:50 06:27 WBC 11.1 H RBC 3.98 L Hgb 12.0 Hct 37.4 MCV 94.0 MCH 30.2 MCHC 32.1 RDW 16.9 H Plt Count 253 MPV 10.0 Neut % (Auto) 78.1 H Lymph % (Auto) 8.8 L [place] % (Auto) 11.0 Eos % (Auto) 1.3 Baso % (Auto) 0.4 Neut # (Auto) 8.6 H Lymph # (Auto) 1.0 L [place] # (Auto) 1.2 H Eos # (Auto) 0.1 Baso # (Auto) 0.0 Abs Immat Gran (auto) 0.04 H Imm/Tot Granulo (auto) 0.4 Sodium 142 Potassium 3.8 Chloride 107 Carbon Dioxide 24.9 Anion Gap 13.9 BUN 21.0 H Creatinine 1.31 H Est GFR ( Amer) 48 L Est GFR (Non-Af Amer) 40 L BUN/Creatinine Ratio 16.0 Glucose 183 H Calcium 10.4 H Total Bilirubin 1.0 AST 20 ALT 25 Alkaline Phosphatase 90 Total Protein 6.4 Albumin 2.9 L Globulin 3.5 Albumin/Globulin Ratio 0.8 POC Glucose 213 H 221 H 06/14/24 09:04 WBC RBC Hgb Hct MCV MCH MCHC RDW Plt Count MPV Neut % (Auto) Lymph % (Auto) [place] % (Auto) Eos % (Auto) Baso % (Auto) Neut # (Auto) Lymph # (Auto) [place] # (Auto) Eos # (Auto) Baso # (Auto) Abs Immat Gran (auto) Imm/Tot Granulo (auto) Sodium Potassium Chloride Carbon Dioxide Anion Gap BUN Creatinine Est GFR ( Amer) Est GFR (Non-Af Amer) BUN/Creatinine Ratio Glucose Calcium Total Bilirubin AST ALT Alkaline Phosphatase Total Protein Albumin Globulin Albumin/Globulin Ratio POC Glucose 178 H Urinary Catheter Management Urinary Catheter Management Straight: Cath placed during this visit: yes Urethral indwelling: No Insertion date: 06/13/24 Insertion time: 05:20
--- NOTE | 2024-06-14 10:51 | XR_ITS ---
The [address] [address] Patient Name: LAURA LAWSON MRN: [id number] date: 1950 Sex: F Assigned Patient Location: [place] Current Patient Location: [place] Accession/Order Number: [id number] Exam Date: 06/14/2024 12:07 Report Date: 06/14/2024 12:53 At the request of: SHAIKH CHINA Procedure: XR hip RT min 2V PROCEDURE: XR hip RT min 2V COMPARISON: None. HISTORY: Hip Pain FINDINGS: BONES:No acute fracture or dislocation. Mild hip osteoarthropathy with marginal osteophyte formation. SOFT TISSUES:Negative. No visible soft tissue swelling. EFFUSION:None visible. OTHER: Vascular calcification XR/XR hip RT min 2V IMPRESSION: No acute fracture Electronically authenticated by: DILLAN ANDREW Date: 06/14/2024 12:53
--- NOTE | 2024-06-14 10:57 | CM.NOTE ---
Medicare Outpatient Observation Notice discussed with pt, pt verbalizes understanding and signs paper. Original given to pt and copy placed on pt's chart. Assisted PT with getting patient to bedside and attempting to stand. Pt c/o severe pain to R hip and unable to bear weight to R leg. Discussed with Dr. Fleming, he will put order in to x-ray R hip.
[2024-06-14 11:51] LABS: Glucometer 177 mg/dL (74-106)
--- NOTE | 2024-06-14 14:58 | SWNOTE1 ---
SW reviewed therapy notes and pt is recommended to go to rehab. Pt is in observation status and will need to pay out of pocket. SW spoke to pt about this and she voiced understanding. Pt voiced she has money in her [employer] and can get it transferred over. Pt reviewed the list from Medicare.gov and she is not sure which facility. Pt also could not remember where she has her money invested and is going to call her significant other. At this time pt's significant other walked in. SW updated her that pt is in observation status and at this time does not qualify to be made inpt. SW explained that Medicare requires a 3 day inpt stay for them to pay for rehab. She voiced understanding. Pt's significant other voiced that they can pay for it they have the money. She stated she will call there shop steward and get money transferred over. Pt significant other reviewed list from Medicare.gov. [facility] is first choice and [facility] is second. MARY JO reached out to Gabi at [facility], waiting to hear back. MARY JO updated nurse and doctor.
--- NOTE | 2024-06-14 15:25 | SWNOTE1 ---
SW reached out to [facility] as well. Both [facility] and [facility] have an opening. They provided the rate. SW to let pt and sig. other know.
[2024-06-14 16:17] LABS: Glucometer 132 mg/dL (74-106)
--- NOTE | 2024-06-14 16:17 | SWNOTE1 ---
MARY JO received an email back from Gabi at [facility] and they are able to accept, but they will not have a bed until tomorrow. MARY JO let nurse and doctor know.
--- NOTE | 2024-06-14 16:18 | SWNOTE1 ---
Pt will be going skilled private pay to [facility].
[2024-06-14 21:31] LABS: Glucometer 76 mg/dL (74-106)
[2024-06-14] MEDS: ATORVASTATIN CALCIUM 40 MG TABLET PO (21:31)
[2024-06-14 23:14] LABS: Glucometer 58 mg/dL (74-106)
[2024-06-15 00:21] LABS: Glucometer 82 mg/dL (74-106)
[2024-06-15] MEDS: LACTATED RINGER'S SOLUTION 1,000 ML 125 ML IV (02:42)
[2024-06-15 03:56] VITALS: BP 109/68; PULSE 62; TEMP 36.5; O2SAT 98
[2024-06-15 04:30] VITALS: O2SAT 98
[2024-06-15 06:51] LABS: Basophils Percent Auto 0.4 % (0.2-2.0); Eosinophils Absolute Auto 0.2 10^3/uL (0.0-0.7); Eosinophils Percent Auto 2.7 % (0.9-7.0); Hematocrit 37.4 % (36.0-48.0); Hemoglobin 11.6 g/dL (12.0-16.0); Immature Granulocytes Abs Auto 0.02 10^3/uL (0.00-0.03); Immature Granulocytes Pct Auto 0.2 % (0.0-0.5); Lymphocytes Absolute Auto 0.9 10^3/uL (1.2-3.8); Lymphocytes Percent Auto 11.4 % (20.5-60.0); Mean Corpuscular Hemoglobin 29.1 pg (26.7-34.0); Mean Platelet Volume 9.8 fL (9.5-13.5); Monocytes Absolute Auto 1.2 10^3/uL (0.3-0.8); Monocytes Percent Auto 13.9 % (1.7-12.0); Neutrophils Absolute Auto 5.9 10^3/uL (1.4-6.5); Neutrophils Percent Auto 71.4 % (43.0-75.0); Platelet Count 259 10^3/uL (150-450); Red Blood Count 3.98 10^6/uL (4.20-5.40); Red Cell Distribution Width 17.2 % (11.0-15.0); White Blood Count 8.3 10^3/uL (4.0-11.0)
[2024-06-15 07:06] LABS: Alanine Aminotransferase 24 U/L (14-59); Albumin Globulin Ratio 0.8; Albumin Level 2.7 g/dL (3.4-5.0); Alkaline Phosphatase 85 U/L (46-116); Anion Gap 12.3; Aspartate Amino Transferase 25 U/L (15-37); BUN Creatinine Ratio 14.7; Calcium 10.2 mg/dL (8.5-10.1); Carbon Dioxide 26.9 mmol/L (21.0-32.0); Chloride 107 mmol/L (98-107); Estimated GFR (African America 49 (>=60 mL/min/1.73m^2); Estimated GFR (Non-African Ame 41 (>=60 mL/min/1.73m^2); Globulin 3.4 g/dL; Glucose 108 mg/dL (74-106); Potassium 3.2 mmol/L (3.5-5.1); Sodium 143 mmol/L (136-145); Total Protein 6.1 g/dL (6.4-8.2)
[2024-06-15 07:56] LABS: Glucometer 128 mg/dL (74-106)
[2024-06-15 09:06] VITALS: BP 115/60; PULSE 70; TEMP 36.8; O2SAT 93
[2024-06-15] MEDS: CEFTRIAXONE 1,000 MG in 0.9 % SODIUM CHLORIDE 50 ML 100 MG IV (09:15)
[2024-06-15] MEDS: EZETIMIBE 10 MG TABLET PO (09:16)
[2024-06-15] MEDS: ASPIRIN 81 MG TABLET.DR PO (09:16)
[2024-06-15] MEDS: CANAGLIFLOZIN 100 MG TABLET 300 MG PO (09:16)
[2024-06-15] MEDS: OMEPRAZOLE 40 MG CAPSULE.DR PO (09:16)
[2024-06-15] MEDS: ALLOPURINOL 300 MG TABLET PO (09:16)
[2024-06-15] MEDS: APIXABAN 5 MG TABLET PO (09:16)
[2024-06-15] MEDS: HYDRALAZINE HCL 25 MG TABLET PO (09:17)
[2024-06-15] MEDS: LOSARTAN POTASSIUM 50 MG TABLET 100 MG PO (09:17)
[2024-06-15] MEDS: BACLOFEN 10 MG TABLET PO (09:17)
[2024-06-15] MEDS: CARVEDILOL 6.25 MG TABLET PO (09:17)
[2024-06-15] MEDS: CALCIUM CARBONATE 600 MG/VITAMIN D3 400 IU TABLET 1 TAB PO (09:17)
[2024-06-15] MEDS: TORSEMIDE 20 MG TABLET PO (09:17)
[2024-06-15] MEDS: SACUBITRIL/VALSARTAN 24 MG-26 MG TABLET 4 TAB PO (09:17)
[2024-06-15] MEDS: COLCHICINE 0.6 MG TABLET PO (09:18)
[2024-06-15] MEDS: METOPROLOL SUCCINATE 50 MG TAB.ER.24H 75 MG PO (09:18)
[2024-06-15] MEDS: CLOPIDOGREL BISULFATE 75 MG TABLET PO (09:18)
[2024-06-15] MEDS: TICAGRELOR 90 MG TABLET PO (09:18)
[2024-06-15] MEDS: SPIRONOLACTONE 25 MG TABLET PO (09:18)
--- NOTE | 2024-06-15 10:33 | CM.NOTE ---
Rounds made with Dr. Fleming, pt will discharge to [facility] today for skilled. Pt and friend at bedside with concerns regarding discharge readiness, Dr. Fleming discussed in depth with pt and friend pt diagnosis and treatment and assured them pt is ready for discharge. UTI treatment is outpatient antibiotics.
--- NOTE | 2024-06-15 10:57 | SWNOTE1 ---
Pt is ready for discharge to [facility] today. MARY JO spoke to pt and her sig other in regards to transport. SW to set up stretcher transport for pt and they are aware that insurance may not cover. MARY JO called [facility] and they will be here at 12:30 to transport. MARY JO let nursing, [facility], and pt's sig other know time. MARY JO completed [facility] paperwork. SW to send orders once completed.
[2024-06-15 11:02] VITALS: O2SAT 96
--- NOTE | 2024-06-15 11:06 | PM.DS1 ---
DS: Providers Provider Date of admission: 06/13/24 09:01 Primary care physician: ABRAHAM REILLY Admitting clinician: Shaikh Lonnie Attending physician on admission: Shaikh Lonnie Consults: 06/13/24 07:50 Occupational Therapy Eval and Treat Routine Reason for consultation: Ambulatory dysfunction/weakness Physical Therapy Eval and Treat Routine Reason for consultation: Ambulatory dysfunction/weakness 06/15/24 06:58 Consult to Wound Care Routine Consulting Provider: Otilio Wolf Reason for consultation: Pressure ulcer Attending physician on discharge: Shaikh Lonnie Discharging clinician: Shaikh Lonnie Anticipated date of discharge: 06/15/24 DS: Diagnosis Discharge Diagnosis (1) Urinary tract infection: Qualifiers: Hematuria presence: without hematuria Urinary tract infection type: acute cystitis Qualified Code(s): N30.00 - Acute cystitis without hematuria (2) Fall: Qualifiers: Encounter type: subsequent encounter Qualified Code(s): W19.XXXD - Unspecified fall, subsequent encounter (3) Knee pain, chronic: Qualifiers: Laterality: left Qualified Code(s): M25.562 - Pain in left knee; G89.29 - Other chronic pain (4) Chronic back pain: Qualifiers: Back pain location: low back pain Back pain laterality: left Sciatica presence: with sciatica Sciatica laterality: sciatica of left side Qualified Code(s): M54.42 - Lumbago with sciatica, left side; G89.29 - Other chronic pain (5) HFrEF (heart failure with reduced ejection fraction): (6) Hypertension: Qualifiers: Hypertension type: primary hypertension Qualified Code(s): I10 - Essential (primary) hypertension (7) Obesity: Qualifiers: Obesity type: due to excess calories Obesity classification: adult class 2 (BMI 35 - 39.9) Serious obesity comorbidity presence: without serious comorbidity Body mass index: BMI 36.0-36.9 Qualified Code(s): E66.812 - Obesity, class 2; E66.09 - Other obesity due to excess calories; Z68.36 - Body mass index [BMI] 36.0-36.9, adult (8) Diabetes: Qualifiers: Diabetes mellitus type: type 2 Diabetes mellitus group home insulin use: with group home use Diabetes mellitus complication status: with kidney complications Diabetes mellitus complication detail: with chronic kidney disease Chronic kidney disease stage: stage 3 (moderate) Chronic kidney disease stage 3 subtype: stage 3a (GFR 45-59) Qualified Code(s): E11.22 - Type 2 diabetes mellitus with diabetic chronic kidney disease; N18.31 - Chronic kidney disease, stage 3a; Z79.4 - long term acute care registered nurse (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 of insulin (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 transplanted heart: [place] heart Associated angina: without angina Qualified Code(s): I25.10 - Atherosclerotic heart disease of [place] coronary artery without angina pectoris DS: Summary Hospital Course Hospital Course: 73 y o female with hx of Obesity, chronic back and knee pain, lives with her family and uses Walker to ambulate. She presented to ED after mechanical fall at home and inability to ambulate afterwards due to severe knee and back pain. Patient was evaluated in ED. She was found to have UTI. No acute findings were noted on CXR, Knee/hip and Lumbar XR. She was evaluated by PT/OT. She can barely move and has limited mobility due to pain. She is agreeable to go to rehab for PT/OT. Patient will need PO Ceftin to finish treatment course of UTI. Status at Discharge Functional status at discharge: uses cane/walker Overall status at discharge: patient is progressing back to baseline Time Spent with Patient Time attestation: Total time spent providing and/or coordinating discharge services: Time spent: greater than 30 minutes Exam Constitutional Vital Signs, click to edit/add: Last Vital Signs Temp 98.3 F 06/15/24 09:06 Pulse 70 06/15/24 09:06 Resp 18 06/15/24 09:06 BP 115/60 06/15/24 09:06 Pulse Ox 96 06/15/24 11:02 O2 Del Method Room Air 06/15/24 11:02 Documenting provider has reviewed patient's vital signs: yes Common normals: no apparent distress and oriented x3 General appearance: cooperative Respiratory Common normals: normal respiratory effort and clear to auscultation bilaterally Effort & inspection: able to speak in complete sentences Auscultation: clear to auscultation bilaterally Cardio Common normals: regular rate, S1 normal heart sound and S2 normal heart sound Rate: regular rate Heart sounds: S1 normal and S2 normal Extremity Common normals: no clubbing, cyanosis or edema Other: Left Hip/Knee reduced ROM due to pain Neuro Common normals: oriented x3, moves all extremities and no focal motor deficits Psych Common normals: mental status grossly normal, denies hallucinations, denies homicidal ideation and denies suicidal ideation DS: Data Data Completed and Pending Labs on day of discharge: Labs from last 24 hours 06/15/24 06/15/24 06/15/24 07:50 06:27 00:19 WBC 8.3 RBC 3.98 L Hgb 11.6 L Hct 37.4 MCV 94.0 MCH 29.1 MCHC 31.0 RDW 17.2 H Plt Count 259 MPV 9.8 Neut % (Auto) 71.4 Lymph % (Auto) 11.4 L Sutter % (Auto) 13.9 H Eos % (Auto) 2.7 Baso % (Auto) 0.4 Neut # (Auto) 5.9 Lymph # (Auto) 0.9 L Sutter # (Auto) 1.2 H Eos # (Auto) 0.2 Baso # (Auto) 0.0 Abs Immat Gran (auto) 0.02 Imm/Tot Granulo (auto) 0.2 Sodium 143 Potassium 3.2 L Chloride 107 Carbon Dioxide 26.9 Anion Gap 12.3 BUN 19.0 H Creatinine 1.29 H Est GFR ( Amer) 49 L Est GFR (Non-Af Amer) 41 L BUN/Creatinine Ratio 14.7 Glucose 108 H Calcium 10.2 H Total Bilirubin 1.0 AST 25 ALT 24 Alkaline Phosphatase 85 Total Protein 6.1 L Albumin 2.7 L Globulin 3.4 Albumin/Globulin Ratio 0.8 POC Glucose 128 H 82 06/14/24 06/14/24 06/14/24 23:13 21:30 16:16 WBC RBC Hgb Hct MCV MCH MCHC RDW Plt Count MPV Neut % (Auto) Lymph % (Auto) Sutter % (Auto) Eos % (Auto) Baso % (Auto) Neut # (Auto) Lymph # (Auto) Sutter # (Auto) Eos # (Auto) Baso # (Auto) Abs Immat Gran (auto) Imm/Tot Granulo (auto) Sodium Potassium Chloride Carbon Dioxide Anion Gap BUN Creatinine Est GFR ( Amer) Est GFR (Non-Af Amer) BUN/Creatinine Ratio Glucose Calcium Total Bilirubin AST ALT Alkaline Phosphatase Total Protein Albumin Globulin Albumin/Globulin Ratio POC Glucose 58 L 76 132 H 06/14/24 11:50 WBC RBC Hgb Hct MCV MCH MCHC RDW Plt Count MPV Neut % (Auto) Lymph % (Auto) Sutter % (Auto) Eos % (Auto) Baso % (Auto) Neut # (Auto) Lymph # (Auto) Sutter # (Auto) Eos # (Auto) Baso # (Auto) Abs Immat Gran (auto) Imm/Tot Granulo (auto) Sodium Potassium Chloride Carbon Dioxide Anion Gap BUN Creatinine Est GFR ( Amer) Est GFR (Non-Af Amer) BUN/Creatinine Ratio Glucose Calcium Total Bilirubin AST ALT Alkaline Phosphatase Total Protein Albumin Globulin Albumin/Globulin Ratio POC Glucose 177 H Discharge Plan Discharge Disposition: Xfer SNF Condition: Fair Discharge Medications: New cefuroxime axetil 500 mg tablet 500 mg PO BID 7 Days Qty: 14 0RF oxycodone 5 mg tablet 5 mg PO Q6H PRN (Reason: pain) Qty: 10 0RF Continued candesartan 32 mg tablet 32 mg PO DAILY omeprazole 40 mg capsule,delayed release(DR/EC) 40 mg PO Q24H meloxicam 15 mg tablet 15 mg PO Q24H allopurinol 300 mg tablet 300 mg PO Q24H baclofen 10 mg tablet 10 mg PO Q24H insulin lispro [Humalog U-100 Insulin] 100 unit/mL solution 1 sliding scale dose subcut PRN insulin glargine U-300 conc [Toujeo Max U-300 SoloStar] 300 unit/mL (3 mL) insulin pen 30 unit SUBCUT Q24H potassium chloride [K-Tab] 20 mEq tablet extended release 20 meq PO DAILY calcium citrate-vitamin D3 315 mg-5 mcg (200 unit) tablet 1 tab PO BID aspirin [Adult Aspirin Regimen] 81 mg tablet,delayed release (DR/EC) 81 mg PO DAILY nitroglycerin 0.3 mg tablet, sublingual 0.3 mg sublingual Q5M Rx Instructions: do not exceed 3 doses per episode spironolactone [Aldactone] 25 mg tablet 25 mg PO DAILY torsemide 20 mg tablet 20 mg PO DAILY Trulicity 1.5 mg/0.5 mL pen injector 1.5 mg subcut QWEEK insulin glargine U-300 conc [Toujeo Max U-300 SoloStar] 300 unit/mL (3 mL) insulin pen 100 unit subcut DAILY carvedilol [Coreg] 6.25 mg tablet 6.25 mg PO BID Rx Instructions: must administer with a meal/food clopidogrel [Plavix] 75 mg tablet 75 mg PO DAILY dapagliflozin propanediol [Farxiga] 10 mg tablet 10 mg PO DAILY pregabalin 25 mg capsule 25 mg PO Q12H Eliquis 5 mg tablet 5 mg PO Q12H colchicine 0.6 mg tablet 0.6 mg PO DAILY metoprolol succinate 50 mg tablet extended release 24 hr 75 mg PO DAILY rosuvastatin 20 mg tablet 20 mg PO DAILY Rx Instructions: AM sacubitril-valsartan [Entresto] 97-103 mg tablet 1 tab PO BID Brilinta 90 mg tablet 90 mg PO Q12H ezetimibe 10 mg tablet 10 mg PO DAILY hydralazine 25 mg tablet 25 mg PO Q12H atorvastatin 80 mg tablet 80 mg PO QPM lidocaine 5 % adhesive patch,medicated 1 patch topical Q24H Ozempic 0.25 mg or 0.5 mg (2 mg/3 mL) pen injector 0.25 mg SUBCUT .QWK Print Language: [place] 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
--- NOTE | 2024-06-15 12:41 | SWNOTE1 ---
MARY JO faxed over dc med rec to Gabi at [facility]. Pt is going skilled to [facility]. MARY JO completed PASR online.
== END 2024-06-15 12:33 ==
LOC: ER 06:22 → MS 06-14 06:22
PROVIDERS: Admitting Provider Internal Medicine; Emergency Provider Emergency Medicine; PCP Internal Medicine; Visit Provider Internal Medicine
DX: N30.00 Acute cystitis without hematuria (principal); Z95.5 Presence of coronary angioplasty implant and graft; Z90.710 Acquired absence of both cervix and uterus; E66.09 Other obesity due to excess calories; Z68.36 Body mass index [BMI] 36.0-36.9, adult; M25.562 Pain in left knee; G89.29 Other chronic pain; M54.42 Lumbago with sciatica, left side; I13.0 Hypertensive heart and chronic kidney disease with heart failure and stage 1 through stage 4 chronic kidney disease, or unspecified chronic kidney disease; I50.20 Unspecified systolic (congestive) heart failure; N18.31 Chronic kidney disease, stage 3a; E11.22 Type 2 diabetes mellitus with diabetic chronic kidney disease; Z79.4 Long term (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 of insulin; I25.10 Atherosclerotic heart disease of native coronary artery without angina pectoris; Z91.81 History of falling; B96.20 Unspecified Escherichia coli [E. coli] as the cause of diseases classified elsewhere
CPT/HCPCS: 36415; 71045; 72100; 73502; 73560; 80048; 80053; 81001; 82550; 82948; 85007; 85025; 85027; 87040; 87086; 87150; 87186; 93005; 94761; 96365; 96366; 97110; 97162; 97165; 97530; 99285; G0378; J0696

== ENCOUNTER 2024-06-28 12:49 | Outpatient (OUT) | payer MEDICARE, OTHER, SELFPAY ==
--- NOTE | 2024-06-28 13:00 | CA_ITS ---
Patient Name: LAURA LAWSON MR#: [id number] : 1950 Exam Date: 06/28/2024 Ordering Doctor: DR JULITO ZENDEJAS M.D. ECHOCARDIOGRAM REPORT PROCEDURE: CA ECHO DOPPLER COMPLETE INDICATIONS: Heart failure with reduce ejection fraction COMPARISON: None. DESCRIPTION: COMPLETE ECHOCARDIOGRAM Real-time transthoracic echocardiography with 2D, M-mode, spectral and color flow Doppler performed. QUALITY: Technical quality was good. LEFT VENTRICLE: Normal chamber size. Mild concentric left ventricular hypertrophy. There is akinesis of the apex and apical segments with good contractility of the remaining segments. Global systolic function is moderately reduced. LV EF: Moderately reduced left ventricular ejection fraction, (35-40%). DIASTOLIC: Grade I diastolic dysfunction. ATRIAL SEPTUM: Visually appears intact. LEFT ATRIUM: Mild dilatation. RIGHT ATRIUM: Normal chamber size. RIGHT VENTRICLE: Normal chamber size. Normal right ventricular systolic function. TRICUSPID VALVE: Normal mobility and thickness. No stenosis with trivial regurgitation. MITRAL VALVE: Moderately thickened with normal mobility. No evidence of mitral valve stenosis. Mild mitral annular calcification. Trivial mitral regurgitation. AORTIC VALVE: Normal trileaflet appearance. Thickened aortic valve. Normal leaflet mobility. No aortic valve stenosis. No aortic regurgitation. AORTIC ROOT: Normal diameter and appearance. PULMONIC VALVE: Normal thickness and mobility. No stenosis. Trivial regurgitation. PERICARDIUM: No evidence of pericardial effusion. IVC: Collapses with inspirations. PLEURA: CONCLUSION: 1. Mild concentric left ventricular hypertrophy with moderately reduced systolic function and segmental wall motion abnormalities involving the apex and apical segments. Estimated LVEF is 35 to 40%. 2. Normal right ventricular size and systolic function. 3. No significant valvular dysfunction. 4. No pericardial effusion. Adult Echocardiography Procedure Report Left Ventricle LVEDD (3.7 - 5.6 cm): 4.35 cm LVESD (2.2 - 4.0 cm): 3.02 cm LVIVS thickness (0.6 - 1.2 cm): 1.03 cm LVPW thickness (0.5 - 1.0 cm): 1.11 cm e': 0.05 m/s E - e': 6.22 LVOT Max Gradient: 1.38 mm[Hg] LVOT Area (cm2): 0.59 m/s Peak Velocity (LVOT): 0.59 m/s Mean Velocity (LVOT): 0.35 m/s LVOT Diameter 2.11 cm Left Atrium LA Volume Index (2D A2C): 38.19 ml/m2 Left Atrium Systolic Dimension: 4.67 cm Mitral Valve MV E to A Ratio: 0.41 Mitral Valve A-Wave Peak Velocity: 0.79 m/s Mitral Valve E-Wave Peak Velocity: 0.33 m/s Right Ventricle Aorta AO Root Diam: 3.12 cm Aortic Valve AoV Area (Peak Dixon): 1.52 cm2, 1.52 cm2 AoV Area (VTI): 1.63 cm2, 1.63 cm2 Peak Velocity(Antegrade Flow): 1.35 m/s Peak Gradient(Antegrade Flow): 7.26 mm[Hg] Mean Velocity(Antegrade Flow): 0.86 m/s Mean Gradient(Antegrade Flow): 3.60 mm[Hg] Velocity Time Integral: 25.92 cm Tricuspid Valve Pulmonic Valve Mean Gradient: 3.05 mm[Hg] Mean Velocity: 0.81 m/s Peak Velocity: 1.30 m/s, 1.41 m/s Peak Gradient: 7.90 mm[Hg], 6.74 mm[Hg] Right Atrium Right Atrium Systolic Pressure: 29.42 ml, 29.42 ml Dictated by: Julito Zendejas M.D. on 06/29/2024 at 19:07 Approved by: Julito Zendejas M.D. on 06/29/2024 at 19:14
== END 2024-06-28 12:50 | disposition home or self-care (01) ==
LOC: CARD 12:49
PROVIDERS: PCP Internal Medicine; Visit Provider Internal Medicine Interventional Cardiology
DX: I31.39 Other pericardial effusion (noninflammatory) (principal); I50.32 Chronic diastolic (congestive) heart failure
CPT/HCPCS: 93306

== ENCOUNTER 2024-07-20 12:51 | Outpatient (REF) | payer MEDICARE, OTHER, SELFPAY ==
[2024-07-20 13:30] LABS: Bilirubin Urine NEGATIVE (NEGATIVE); Blood Urine NEGATIVE (NEGATIVE); Clarity Urine CLOUDY (CLEAR); Color Urine LT. YELLOW (YELLOW); Glucose Urine UA >=1000 mg/dL (NEGATIVE); Ketones Urine NEGATIVE (NEGATIVE); Leukocyte Esterase Urine MODERATE (NEGATIVE); Nitrite Urine NEGATIVE (NEGATIVE); Protein Urine NEGATIVE (NEG/TRACE); Specific Gravity Urine 1.015 (1.005-1.025); Urobilinogen Urine 0.2 EU/dL (0.2-1.0); pH Urine 5.5 (5.0-9.0)
[2024-07-20 13:32] LABS: Urine Microscopic Indicated YES
[2024-07-20 13:43] LABS: Bacteria Urine TRACE #/HPF (NONE SEEN); Cast Seen? NONE SEEN #/LPF (NONE SEEN); Crystals Seen? None Seen #/HPF (None Seen); Mucus Urine TRACE (NONE SEEN); RBC Urine NONE SEEN #/HPF (0-2); Squamous Epithelial Cell Urine RARE #/LPF (NONE/RARE); WBC Urine 20-50 #/HPF (NONE SEEN)
[2024-07-20 13:44] LABS: Urine Culture Indicated YES
== END 2024-07-20 12:52 | disposition home or self-care (01) ==
LOC: LAB 12:51
PROVIDERS: PCP Internal Medicine; Visit Provider Family Medicine
DX: R30.0 Dysuria (principal)
CPT/HCPCS: 81001; 87086

== ENCOUNTER 2024-07-28 10:06 | Outpatient (OUT) | payer MEDICARE, OTHER, SELFPAY ==
--- NOTE | 2024-07-28 10:00 | CA_ITS ---
Patient Name: LAURA LAWSON MR#: [id number] : 1950 Exam Date: 07/28/2024 Ordering Doctor: DR JULITO HERNANDEZ M.D. ECHOCARDIOGRAM REPORT PROCEDURE: CA ECHO DOPPLER COMPLETE INDICATIONS: Heart failure with reduced ejection fraction, cardiac stents, hypertension, diabetes COMPARISON: None. DESCRIPTION: COMPLETE ECHOCARDIOGRAM Real-time transthoracic echocardiography with 2D, M-mode, spectral and color flow Doppler performed. QUALITY: Technical quality was good. LEFT VENTRICLE: Normal chamber size. Mild concentric left ventricular hypertrophy. LV EF: Severely reduced left ventricular systolic function, mid and apical septal segments as well as the apex appeared to be akinetic, ejection fraction 30% DIASTOLIC: Unable to evaluate diastolic function due to significant mitral calcification. ATRIAL SEPTUM: Visually appears intact. LEFT ATRIUM: Severe dilatation. RIGHT ATRIUM: Normal chamber size. RIGHT VENTRICLE: Normal chamber size. Decreased right ventricular systolic function. TRICUSPID VALVE: Normal mobility and thickness. No stenosis with no regurgitation. MITRAL VALVE: Mildly thickened with normal mobility. No evidence of mitral valve stenosis. Moderate mitral annular calcification. Trivial mitral regurgitation. AORTIC VALVE: Normal trileaflet appearance. Mildly calcified aortic valve. Normal leaflet mobility. No evidence of aortic valve stenosis. No aortic regurgitation. AORTIC ROOT: Normal diameter and appearance. PULMONIC VALVE: Normal thickness and mobility. No stenosis. Mild regurgitation. PERICARDIUM: Trivial pericardial effusion. No evidence of pericardial tamponade IVC: Collapes with inspirations. PLEURA: CONCLUSION: Mild concentric left ventricular hypertrophy Normal left ventricle cavity size Severely reduced left ventricular systolic function, basal and mid apical segments and the apex appear to be akinetic, ejection fraction 30% Normal right ventricle size but mildly reduced systolic function No significant valvular abnormalities Moderate mitral annulus calcification Mild pulmonary insufficiency Trivial pericardial effusion without evidence of tamponade Adult Echocardiography Procedure Report Left Ventricle LVEDD (3.7 - 5.6 cm): 5.07 cm LVESD (2.2 - 4.0 cm): 3.67 cm LVIVS thickness (0.6 - 1.2 cm): 1.08 cm LVPW thickness (0.5 - 1.0 cm): 1.12 cm e': 0.05 m/s E - e': 12.73 LVOT Max Gradient: 2.00 mm[Hg] LVOT Area (cm2): 0.71 m/s Peak Velocity (LVOT): 0.71 m/s Mean Velocity (LVOT): 0.47 m/s LVOT Diameter 2.38 cm Left Ventricular Ejection Fraction: Left Atrium LA Volume Index (2D A2C): 53.20 ml/m2 Left Atrium Systolic Dimension: 4.91 cm Mitral Valve MV E to A Ratio: 0.63 MV Max Gradient: MV Mean Gradient: Mitral Valve A-Wave Peak Velocity: 0.91 m/s Mitral Valve E-Wave Peak Velocity: 0.58 m/s Cardiovascular Orifice Area: Right Ventricle RV Internal Diastolic Dimension: Aorta AO Root Diam: 3.08 cm Ascending Ao Diam: Aortic Valve AoV Area (Peak Dixon): 2.26 cm2, 2.26 cm2 AoV Area (VTI): 2.16 cm2, 2.16 cm2 Deceleration [place]: Pressure Half-Time: Peak Velocity(Antegrade Flow): 1.39 m/s Peak Gradient(Antegrade Flow): 7.72 mm[Hg] Mean Velocity(Antegrade Flow): 0.88 m/s Mean Gradient(Antegrade Flow): 3.79 mm[Hg] Velocity Time Integral: 30.97 cm Tricuspid Valve Peak Velocity (Regurgitant Flow): Peak Velocity: Pulmonic Valve Mean Gradient: 4.24 mm[Hg] Mean Velocity: 0.97 m/s Peak Velocity: 1.44 m/s, 1.45 m/s Peak Gradient: 8.32 mm[Hg], 8.42 mm[Hg] Right Atrium Right Atrium Systolic Pressure: 28.25 ml, 28.25 ml Dictated by: Tapan Brooks MD on 07/28/2024 at 17:51 Approved by: Tapan Brooks MD on 07/28/2024 at 18:12
== END 2024-07-28 10:07 | disposition home or self-care (01) ==
LOC: CARD 10:06
PROVIDERS: PCP Internal Medicine; Visit Provider Internal Medicine Interventional Cardiology
DX: I50.22 Chronic systolic (congestive) heart failure (principal)
CPT/HCPCS: 93306

== ENCOUNTER 2024-09-17 14:13 | Outpatient (OUT) | payer MEDICARE, OTHER, SELFPAY ==
[2024-09-17 14:37] LABS: Anion Gap 12.8; BUN Creatinine Ratio 17.2; Calcium 9.9 mg/dL (8.5-10.1); Carbon Dioxide 26.9 mmol/L (21.0-32.0); Chloride 103 mmol/L (98-107); Estimated GFR (African America >60 (>=60 mL/min/1.73m^2); Estimated GFR (Non-African Ame 59 (>=60 mL/min/1.73m^2); Glucose 237 mg/dL (74-106); Potassium 3.7 mmol/L (3.5-5.1); Sodium 139 mmol/L (136-145)
[2024-09-17 14:53] LABS: Basophils Absolute Auto 0.1 10^3/uL (0.0-0.1); Basophils Percent Auto 0.6 % (0.2-2.0); Eosinophils Absolute Auto 0.1 10^3/uL (0.0-0.7); Hematocrit 36.5 % (36.0-48.0); Hemoglobin 11.5 g/dL (12.0-16.0); Immature Granulocytes Abs Auto 0.04 10^3/uL (0.00-0.03); Immature Granulocytes Pct Auto 0.4 % (0.0-0.5); Lymphocytes Absolute Auto 1.1 10^3/uL (1.2-3.8); Lymphocytes Percent Auto 9.9 % (20.5-60.0); Mean Corpuscular HGB Conc 31.5 g/dL (29.9-35.2); Mean Corpuscular Hemoglobin 30.3 pg (26.7-34.0); Mean Corpuscular Volume 96.3 fL (81.0-99.0); Mean Platelet Volume 9.7 fL (9.5-13.5); Monocytes Absolute Auto 1.3 10^3/uL (0.3-0.8); Monocytes Percent Auto 12.5 % (1.7-12.0); Neutrophils Absolute Auto 8.1 10^3/uL (1.4-6.5); Neutrophils Percent Auto 75.6 % (43.0-75.0); Platelet Count 371 10^3/uL (150-450); Red Blood Count 3.79 10^6/uL (4.20-5.40); Red Cell Distribution Width 15.7 % (11.0-15.0); White Blood Count 10.7 10^3/uL (4.0-11.0)
== END 2024-09-17 14:14 | disposition home or self-care (01) ==
LOC: LAB 14:14
PROVIDERS: PCP Internal Medicine; Visit Provider Internal Medicine Interventional Cardiology
DX: I50.22 Chronic systolic (congestive) heart failure (principal)
CPT/HCPCS: 36415; 80048; 85025

== ENCOUNTER 2024-10-20 13:04 | Outpatient (OUT) | payer MEDICARE, OTHER, SELFPAY ==
--- NOTE | 2024-10-20 13:00 | CA_ITS ---
Patient Name: LAURA LAWSON MR#: [id number] : 1950 Exam Date: 10/20/2024 Ordering Doctor: DR JULITO ZENDEJAS M.D. ECHOCARDIOGRAM REPORT PROCEDURE: CA ECHO DOPPLER COMPLETE INDICATIONS: heart failure with reduced ejection fraction, cardiac stents COMPARISON: None. DESCRIPTION: COMPLETE ECHOCARDIOGRAM Real-time transthoracic echocardiography with 2D, M-mode, spectral and color flow Doppler performed. QUALITY: Technical quality was good. LEFT VENTRICLE: Mild dilatation. Mild concentric left ventricular hypertrophy. Systolic function is difficult to assess but appears moderately reduced. LV EF: Moderately reduced left ventricular ejection fraction, (30-35%). DIASTOLIC: ATRIAL SEPTUM: Visually appears intact. LEFT ATRIUM: Severe dilatation. RIGHT ATRIUM: Moderate dilatation. RIGHT VENTRICLE: Mild chamber dilatation. Mildly decreased right ventricular systolic function. TRICUSPID VALVE: Normal mobility and thickness. No stenosis with mild regurgitation. Doppler studies reveal moderately (45-60) elevated right sided pressures. RVSP 54 mmHg MITRAL VALVE: Mild mitral valve stenosis. Moderate mitral annular calcification. Mild mitral regurgitation. Mildly thickened leaflets with decreased mobility. AORTIC VALVE: Normal trileaflet appearance. Mildly calcified aortic valve. Mildly diminished mobility. No evidence of aortic valve stenosis. No aortic regurgitation. AORTIC ROOT: Normal diameter and appearance. Ascending aorta is normal in size. PULMONIC VALVE: Normal thickness and mobility. No stenosis. Mild regurgitation. PERICARDIUM: No evidence of pericardial effusion. IVC: IVC is dilated (2.9 cm), does not fully collapse. PLEURA: CONCLUSION: 1. The left ventricular is mildly dilated with moderately reduced systolic function. Estimated LVEF is 30 to 35%. 2. Mildly dilated right ventricle with reduced systolic function. 3. No significant valvular dysfunction. 4. Moderately elevated right-sided pressures, RVSP is 54 mmHg. Adult Echocardiography Procedure Report Left Ventricle LVEDD (3.7 - 5.6 cm): 5.48 cm LVESD (2.2 - 4.0 cm): 4.10 cm LVIVS thickness (0.6 - 1.2 cm): 1.29 cm LVPW thickness (0.5 - 1.0 cm): 1.11 cm LVOT Max Gradient: 1.32 mm[Hg] LVOT Area (cm2): 0.57 m/s Peak Velocity (LVOT): 0.57 m/s Mean Velocity (LVOT): 0.36 m/s LVOT Diameter 2.36 cm Left Atrium LA Volume Index (2D A2C): 49.46 ml/m2 Left Atrium Systolic Dimension: 4.19 cm Mitral Valve MV E to A Ratio: 1.73 Mitral Valve A-Wave Peak Velocity: 0.61 m/s Mitral Valve E-Wave Peak Velocity: 1.05 m/s Right Ventricle Aorta AO Root Diam: 3.43 cm Ascending Ao Diam: 2.94 cm Aortic Valve AoV Area (Peak Dixon): 2.16 cm2, 2.16 cm2 AoV Area (VTI): 2.19 cm2, 2.19 cm2 Peak Velocity(Antegrade Flow): 1.16 m/s Peak Gradient(Antegrade Flow): 5.37 mm[Hg] Mean Velocity(Antegrade Flow): 0.75 m/s Mean Gradient(Antegrade Flow): 2.65 mm[Hg] Velocity Time Integral: 23.33 cm Tricuspid Valve Peak Velocity (Regurgitant Flow): 1.75 m/s, 3.11 m/s Pulmonic Valve Peak Gradient: 3.92 mm[Hg], 3.37 mm[Hg], 2.40 mm[Hg] Right Atrium Right Atrium Systolic Pressure: 49.42 ml, 49.42 ml Dictated by: Julito Zendejas M.D. on 10/21/2024 at 18:55 Approved by: Julito Zendejas M.D. on 10/21/2024 at 19:07
== END 2024-10-20 13:05 | disposition home or self-care (01) ==
LOC: CARD 13:04
PROVIDERS: PCP Internal Medicine; Visit Provider Internal Medicine Interventional Cardiology
DX: I50.22 Chronic systolic (congestive) heart failure (principal)
CPT/HCPCS: 93306

== ENCOUNTER 2024-12-08 12:01 | Outpatient (OUT) | payer MEDICARE, OTHER, SELFPAY ==
[2024-12-08 12:18] LABS: Hematocrit 37.1 % (36.0-48.0); Hemoglobin 11.5 g/dL (12.0-16.0); Immature Granulocytes Abs Auto 0.02 10^3/uL (0.00-0.03); Immature Granulocytes Pct Auto 0.3 % (0.0-0.5); Lymphocytes Absolute Auto 1.1 10^3/uL (1.2-3.8); Mean Corpuscular HGB Conc 31.0 g/dL (29.9-35.2); Mean Corpuscular Hemoglobin 28.5 pg (26.7-34.0); Mean Corpuscular Volume 91.8 fL (81.0-99.0); Platelet Count 287 10^3/uL (150-450); Red Blood Count 4.04 10^6/uL (4.20-5.40); White Blood Count 7.6 10^3/uL (4.0-11.0)
[2024-12-08 12:53] LABS: Anion Gap 12.5; Blood Urea Nitrogen 23.0 mg/dL (7.0-18.0); Calcium 10.0 mg/dL (8.5-10.1); Carbon Dioxide 27.3 mmol/L (21.0-32.0); Chloride 103 mmol/L (98-107); Estimated GFR (African America 57 (>=60 mL/min/1.73m^2); Estimated GFR (Non-African Ame 47 (>=60 mL/min/1.73m^2); Glucose 341 mg/dL (74-106); Potassium 3.8 mmol/L (3.5-5.1); Sodium 139 mmol/L (136-145)
== END 2024-12-08 12:02 | disposition home or self-care (01) ==
LOC: LAB 12:02
PROVIDERS: PCP Internal Medicine; Visit Provider Internal Medicine Cardiovascular Disease
DX: I50.22 Chronic systolic (congestive) heart failure (principal)
CPT/HCPCS: 36415; 80048; 85025

== ENCOUNTER 2024-12-14 12:26 | Outpatient (OUT) | payer MEDICARE, OTHER, SELFPAY ==
--- OUTSIDE RECORDS SUMMARY | 2024-12-13 09:54 | XMS_ITS | Encounter Summary ---
Author Organization [facility] Address [address] [place] [address] Care Team Providers Care Floor Coverings Installer Name Role Phone Vlad Cesar MD Primary Care Provider [phone] Reason for Referral * (Routine) - Pending Review Specialty Diagnoses / Procedures Referred By Contac t Referred To Contact Procedures ECG 12 lead Gerardo Morris MD [address] [place] [phone] Phone: tel: fax: Referral ID Status Reason Start Date Expiration Date V isits Requested Visits Authorized [id number] Pending Review 12/13/2024 12/13/2025 1 1 * (Routine) - Pending Review Specialty Diagnoses / Procedures Referred By Contac t Referred To Contact Procedures ECG 12 lead Gerardo Morris MD [address] [place] [phone] Phone: tel: fax: Referral ID Status Reason Start Date Expiration Date V isits Requested Visits Authorized [id number] Pending Review 12/13/2024 12/13/2025 1 1 Reason for Visit * Auth/Cert (Routine) Specialty Diagnoses / Procedures Referred By Contac t Referred To Contact Diagnoses Cardiomyopathy, unspecified type (CMS/HCC) Cardiomyopathy, unspecified type (CMS/HCC) [I42.9] Procedures Implant ICD - biventricular Gerardo Morris MD [address] [place] [address] Phone: tel: fax: [facility] [address] [facility] [place] [address] Phone: tel: fax: Referral ID Status Reason Start Date Expiration Date Visits Re quested Visits Authorized [id number] 1 1 Encounter Details Date Type Department Care Team (Late st Contact Info) Description 12/13/2024 9:54 AM EDT - 12/13/2024 4:33 PM EDT Hospital Encounter [facility] [place] [address] [place] [address] Cardiomyopathy (CMS/HCC) (Primary Dx); Cardiomyopathy, unspecified type (CMS/HCC) Discharge Disposition: Home or Self Care (01) Social History Tobacco Use Types Packs/Day Years Used Date Smoking Tobacco: Never Smokeless Tobacco: Never Alcohol Use Standard Drinks/Week Comments Not Currently 0 (1 standard drink = 0.6 oz pur e alcohol) [facility] Utilities Answer Date Recorded In the past 12 months has e [employer], gas, oil, or water [employer] threatened to shut off services in your [...] any time in the past 12 m [facility], were you homeless or living in a residential (including now)? No 04/21/2024 Hunger Vital Sign [...] * Moderate Conscious Sedation Adult Care After (Haitian) * Cardioverter Defibrillator Implantation Care After (Haitian) documented in this encounter Medications at Time [...] 5 mgIndications:NSTEM I (non-ST elevated myocardial infarction) ([facility]/HCC) Take 1 tablet (5 mg) by mouth in the morning. 90 tablet 3 5 11/18/19 26 ezetimibe (Zetia) 10 mg tabletIndications:H yperlipidemia, unspecified [...] the morning. Do not crush or chew. omeprazole (PriLOSEC) [address] capsule Take 20 mg by mouth before breakfast. 3 potassium chloride CR (K-Tab) 20 mEq ER tablet Take 20 mEq by mouth in the morning. 5 sacubitril-valsarta n (Entresto) 24-26 mg tabletIndications:C hronic HFrEF (heart failure with reduced ejection fraction) ([facility]) Take 0.5 tablets by mouth two times daily. 90 tablet 3 5 07/19/19 26 ticagrelor (Brilinta) 90 mg tabletIndications:N STEMI (non-ST elevated myocardial infarction) ([facility]) Take 1 tablet (90 mg) by mouth two times daily for 720 doses. 180 tablet 3 4 04/22/20 25 torsemide (Demadex) 20 mg tablet Take 10 mg by mouth in the morning. 3 Toujeo Max U-300 SoloStar 300 unit/mL (3 mL) injection Inject 100 Units under the skin in the morning. 2 doxycycline (Monodox) 100 mg capsuleIndications: Cardiomyopathy (CMS/HCC) Take 1 capsule (100 mg) by mouth two times daily for 10 days. Take with at least 8 ounces (large glass) of water, do not lie down for 30 minutes after 20 capsule 5 12/24/19 25 nitroglycerin (Nitrostat) 0.3 mg SL tablet nitroglycerin 0.3 mg sublingual tablet pregabalin (Lyrica) 25 mg capsule Take 25 mg by mouth two times daily. 4 spironolactone (Aldactone) 25 mg tabletIndications:A cute systolic heart failure (CMS/HCC),CAD in [place] artery Take 0.5 tablets (12.5 mg) by mouth once daily as directed. 90 tablet 1 5 documented as of this encounter H&P Notes * Gerardo Morris MD - 12/13/2024 9:41 AM EDT Images from the original note were not included. NM Electrophysiology Consult Note NM Cardiology [facility] Reason for visit: Ischemic cardiomyopathy [...] failure) (CMS/HCC) Coronary artery disease Diabetes mellitus ([facility]/HCC) Gout Hypertension Myocardial infarction ([facility]/HCC) Sleep apnea PSH: Past Surgical History: Procedure Laterality Date BACK SURGERY CARDIAC CATHETERIZATION CARPAL TUNNEL RELEASE HYSTERECTOMY THYROID SURGERY SH: Social Drivers of Health Tobacco Use: Low Risk (11/09/2024) Patient History Smoking Tobacco Use: Never Smokeless Tobacco Use: Never Passive Exposure: Not on file Alcohol Use: Not At Risk (02/23/2024) Received from [facility] AUDIT-C Frequency of Alcohol Consumption: Never Average [...] file Physical Activity: Inactive (02/23/2024) Received from [facility] Exercise Vital Sign Days of Exercise per Week: 0 days Minutes of Exercise per Session: 0 min Stress: No Stress Concern Present (02/23/2024) Received from [facility] [place] [employer] - Occupational Stress Questionnaire Feeling of Stress : Not at all Social Connections: Moderately Isolated (02/23/2024) Received from [facility] Social Connection and Isolation Panel [NHANES] Frequency of Communication with Friends and Family: More than three times a week Frequency of Social Gatherings with Friends and Family: Once a week Attends Pentec[employer]al Services: Never Active Member of Clubs or Organizations: Yes Attends Club or Organization Meetings: 1 to 4 times per year Marital Status: Never Intimate Partner Violence: Unknown (04/21/2024) Humiliation, Afraid, Rape, and Kick questionnaire Fear of Current or Ex-Partner: No Emotionally Abused: Not on file Physically Abused: Not on file Sexually Abused: Not on file Depression: Not at risk (10/13/2024) Received from [facility] PHQ-2 Patient Health Questionnaire-2 Score: 0 Housing Stability: Low Risk (04/21/2024) Housing Stability Vital Sign Unable to Pay for Housing in the Last Year: No Number of Times Moved in the Last Year: Not on file Homeless in the Last Year: No Utilities: Not At Risk (04/21/2024) [facility] Utilities Threatened with loss of utilities: No Health Literacy: Adequate Health Literacy (02/23/2024) [id number] Frequency of need for [...] the procedure. Gerardo Morris MD Cardiac Electrophysiology [facility] documented in this encounter Procedure Notes * [...] using modified seldinger technique using a 5 Eritrean micro-puncture needle on two occasions and 0.35 [...] for the device above the muscle. 6 Eritrean Safesheaths were placed over the wire. Since [...] lead position on orthogonal views (MATTSON and SERBIAN) to confirm septal position, the screw was [...] lead position on orthogonal views (MATTSON and SERBIAN), the screw was activated. Good sensing parameters [...] 1130 Procedure: Implant ICD - biventricular Location: [facility] LITHOGRAPHIC PRESS OPERATOR 1 / [facility] (Cath) Providers: Gerardo Morris MD [...] Care Team (Late st Contact Info) Description 12/20/2024 2:40 PM EDT Office Visit [facility] [address] [place] [address] Dennis Gilmore, TELEVISION REPAIRMAN [address] [place] [address] Scheduled Orders Name Type Priority Associated Diagnoses [...] MUSE Atrial Rate 82 BPM GE MUSE FL Interval 166 ms GE MUSE QRS DURATION 174 ms GE MUSE QT Interval 452 ms GE MUSE QTC CALCULATION(BAZE TT) 528 ms GE MUSE P Parker 68 degrees GE MUSE R-Parker 159 degrees GE MUSE T Wave Parker 4 degrees GE MUSE 12/13/2024 2:46 PM [...] using modified seldinger technique using a 5 Eritrean micro-puncture needle on two occasions and 0.35 [...] for the device above the muscle. 6 Eritrean Safesheaths were placed over the wire. Since the patient had IVCD, the decision was made to proceed with a dual-chamber ICD. The intention was to place the ICD lead in septal location to see whether we could have left fascicular capture resulting in a narrow QRS. To accommodate this [place] sheath was utilized. An active fixation Biotronik pacing lead was then delivered through the sheath to the right ventricle. After confirmation of lead position on orthogonal views (MATTSON and SERBIAN) to confirm septal position, the screw was [...] lead position on orthogonal views (MATTSON and SERBIAN), the screw was activated. Good sensing parameters, [...] ECG 12 lead (12/13/2024 11:06 AM EDT) Ventricular Rate 72 BPM GE MUSE Atrial Rate 72 BPM GE MUSE FL Interval 230 ms GE MUSE QRS DURATION 142 ms GE MUSE QT Interval 432 ms GE MUSE QTC CALCULATION(BAZE TT) 473 ms GE MUSE P Parker -1 degrees GE MUSE R-Parker 151 degrees GE MUSE T Wave [place] 12 degrees GE MUSE 12/13/2024 10:5 0 AM EDT 12/13/2024 4:33 PM EDT Impressions GE MUSE - 12/13/2024 4:33 PM EDT Sinus rhythm with 1st degree A-V block Non-specific intra-ventricular conduction block Lateral infarct (cited on or before 21-APR-2024) Abnormal ECG When compared with ECG of 21-APR-2024 16:30, Sinus rhythm has replaced Atrial fibrillation Confirmed by Josh VEGAS, YARELI Velazquez (57) on 12/13/2024 4:33:44 PM Narrative Procedure Note Yareli Vegas MD - 12/13/2024 IMPRESSION: Sinus rhythm with 1st degree A-V block Non-specific intra-ventricular conduction block Lateral infarct (cited on or before 21-APR-2024) Abnormal ECG When compared with ECG of 21-APR-2024 16:30, Sinus rhythm has replaced Atrial fibrillation Confirmed by Josh VEGAS, YARELI Velazquez (57) on 12/13/2024 4:33:44 PM us Gerardo Morris MD ECG ORDERABLES Final Result IRAIS TANG documented in this encounter Visit Diagnoses Diagnosis [...] 1045 (Due)1201 (New Bag - Provider: Claudia Diaz RN) PRN Medication Order 12/11/2024 12/12/2024 12/13/2024 fentaNYL (Sublimaze) injection (CANCELED) As needed, Starting on Fri12/13/24 at 1202, Intraprocedure 1202 (Given - Provid er: Claudia Diaz RN)1214 (Given - Provider: Latrice Bonilla RN)1224 (Given - Provider: Edwige Hurd, RN)1329 (Given - Provider: Latrice Bonilla RN)1354 (Given - Provider: Latrice Bonilla, RN)1359 (Given - Provider: Latrice Bonilla RN) [...] RN) documented in this encounter Care Teams Floor Coverings Installer Relationship Specialty Start Date End Date Vlad Cesar MD [address] [facility] [address] [place] [address] PCP - General 08/19/22 documented as of this encounter
--- OUTSIDE RECORDS SUMMARY | 2024-12-13 11:30 | XMS_ITS | Encounter Summary ---
Author Organization [facility] Address [address] [place] [address] Care Team Providers Care Corn Detasseler Name Role Phone Vlad Cesar MD Primary Care Provider [phone] Reason for Visit * Auth/Cert (Routine) Specialty Diagnoses / Procedures Referred By Contac t Referred To Contact Diagnoses Cardiomyopathy, unspecified type (CMS/HCC) Cardiomyopathy, unspecified type (CMS/HCC) [I42.9] Procedures Implant ICD - biventricular Gerardo Morris MD [address] [place] [phone] Phone: tel: fax: [facility] [address] [place] [phone] Phone: tel: fax: Referral ID Status Reason Start Date Expiration Date Visits Re quested Visits Authorized [id number] 1 1 Encounter Details Date Type Department Care Team (Late st Contact Info) Description 12/13/2024 11:30 AM EDT - 12/13/2024 2:30 PM EDT Surgery [facility] [address] [place] [phone] Gerardo Morris MD [address] [place] [phone] Implant ICD - biventricular Social History Tobacco Use Types Packs/Day Years Used Date Smoking Tobacco: Never Smokeless Tobacco: Never Alcohol Use Standard Drinks/Week Comments Not Currently 0 (1 standard drink = 0.6 oz pur e alcohol) [facility] Utilities Answer Date Recorded In the past 12 months has th e electric, gas, oil, or water company threatened to shut off services in your [...] any time in the past 12 m [facility], were you homeless or living in a senior care (including now)? No 04/21/2024 Hunger Vital Sign [...] Sign Reading Time Taken Comments Blood Pressure 119/64 12/13/2024 2:25 PM EDT Pulse 79 12/13/2024 2:25 PM EDT Temperature - - Respiratory Rate 22 12/13/2024 2:25 PM EDT Oxygen Saturation 95% 12/13/2024 2:25 PM EDT Inhaled Oxygen Concentration - - Weight - - Height - - Body Mass Index - - documented in this encounter Discharge Instructions * Attachments The following attachments cannot be sent through Care Everywhere. * Moderate Conscious Sedation Adult Care After (Bruneian) * Cardioverter Defibrillator Implantation Care After (Bruneian) documented in this encounter Medications at Time of Discharge allopurinol (Zyloprim) 300 mg tablet Take 300 mg by mouth in the morning. 3 apixaban (Eliquis) 5 mg tabletIndications:F lutter-fibrillation (CMS/HCC) Take 1 tablet (5 mg) by mouth two times daily. 180 tablet 3 4 04/27/20 25 atorvastatin (Lipitor) 80 mg tablet Take 80 mg by mouth at bedtime. 5 baclofen (Lioresal) 10 mg tablet Take 10 mg by mouth at bedtime. 2 dapagliflozin propanediol (Farxiga) 5 mgIndications:NSTEM I (non-ST elevated myocardial infarction) ([facility]) Take 1 tablet (5 mg) by mouth [...] HFrEF (heart failure with reduced ejection fraction) (CMS/HCC) Take 0.5 tablets by mouth two times [...] tabletIndications:A cute systolic heart failure (CMS/HCC),CAD in [place] artery Take 0.5 tablets (12.5 mg) by mouth once daily as directed. 90 tablet 1 5 documented as of this encounter H&P Notes * Gerardo Morris MD - 12/13/2024 9:41 AM EDT Images from the original note were not included. [place] Electrophysiology Consult Note [place] Cardiology [facility] Reason for visit: Ischemic cardiomyopathy [...] Use: Not At Risk (02/23/2024) Received from [facility] AUDIT-C Frequency of Alcohol Consumption: Never [...] file Physical Activity: Inactive (02/23/2024) Received from [facility] Exercise Vital Sign Days of Exercise per Week: 0 days Minutes of Exercise per Session: 0 min Stress: No Stress Concern Present (02/23/2024) Received from [facility] [place] of Occupational Health - Occupational Stress Questionnaire Feeling of Stress : Not at all Social Connections: Moderately Isolated (02/23/2024) Received from [facility] Social Connection and Isolation Panel [NHANES] Frequency of Communication with Friends and Family: More than three times a week Frequency of Social Gatherings with Friends and Family: Once a week Attends Advent Services: Never Active Member of Clubs or Organizations: Yes Attends Club or Organization Meetings: 1 to 4 times per year Marital Status: Never Intimate Partner Violence: Unknown (04/21/2024) Humiliation, Afraid, Rape, and Kick questionnaire Fear of Current or Ex-Partner: No Emotionally Abused: Not on file Physically Abused: Not on file Sexually Abused: Not on file Depression: Not at risk (10/13/2024) Received from [facility] PHQ-2 Patient Health Questionnaire-2 Score: 0 Housing Stability: Low Risk (04/21/2024) Housing Stability Vital Sign Unable to Pay for Housing in the Last Year: No Number of Times Moved in the Last Year: Not on file Homeless in the Last Year: No Utilities: Not At Risk (04/21/2024) [facility] Utilities Threatened with loss of utilities: No Health Literacy: Adequate Health Literacy (02/23/2024) Received from [facility] B1300 Health Literacy Frequency of need for [...] have agreed to proceed with the procedure. Gearrdo Morris MD Cardiac Electrophysiology [facility] documented in this encounter Procedure [...] using modified seldinger technique using a 5 Algerian micro-puncture needle on two occasions and 0.35 [...] for the device above the muscle. 6 Algerian Safesheaths were placed over the wire. Since t he patient had IVCD, the decision was made to proceed with a dual-chamber ICD. The intention was toplace the ICD lead in septal location to see whether we could have left fascicular capture resulting in a narrow QRS. To accommodate this [place] sheath was utilized. An active fixation Biotronik pacing lead was then delivered through the sheath to the right ventricle. After confirmation of lead position on orthogonal views (MATTSON and MACEDONIAN) to confirm septal position, the screw was [...] lead position on orthogonal views (MATTSON and MACEDONIAN), the screw was activated. Good sensing parameters [...] 1130 Procedure: Implant ICD - biventricular Location: [facility] MANAGER QUALITY COMPLIANCE 1 / [facility] (Cath) Providers: Gerardo Morris MD [...] Description 12/20/2024 2:40 PM EDT Office Visit [facility] Heart at [facility] [address] [place] [address] Dennis Gilmore, PAROLE OFFICER [address] [place] [address] Scheduled Orders Name Type Priority Associated Diagnoses [...] MUSE Atrial Rate 82 BPM GE MUSE TN Interval 166 ms GE MUSE QRS DURATION 174 ms GE MUSE QT Interval 452 ms GE MUSE QTC CALCULATION(BAZE TT) 528 ms GE MUSE P [place] 68 degrees GE MUSE R-[place] 159 degrees GE MUSE T Wave [place] 4 degrees GE MUSE 12/13/2024 2:46 PM EDT 12/13/2024 4:39 PM EDT Impressions GE MUSE - 12/13/2024 4:39 PM EDT Atrial-sensed ventricular-paced rhythm Abnormal ECG When compared with ECG of 13-DEC-2024 10:50, (unconfirmed) Electronic ventricular pacemaker has replaced Sinus rhythm Confirmed by Josh ROUSE SAMER J. (57) on 12/13/2024 4:39:46 PM Narrative Procedure Note Yareli Rouse MD - 12/13/2024 IMPRESSION: Atrial-sensed ventricular-paced rhythm Abnormal ECG When compared with ECG of 13-DEC-2024 10:50, (unconfirmed) Electronic ventricular pacemaker has replaced Sinus rhythm Confirmed by Josh ROUSE SAMER J. (57) on 12/13/2024 4:39:46 PM us Gerardo Morris MD ECG ORDERABLES [...] using modified seldinger technique using a 5 Algerian micro-puncture needle on two occasions and 0.35 [...] for the device above the muscle. 6 [place]ian Safesheaths were placed over the wire. Since [...] lead position on orthogonal views (MATTSON and MACEDONIAN) to confirm septal position, the screw was [...] lead position on orthogonal views (MATTSON and MACEDONIAN), the screw was activated. Good sensing parameters, [...] ECG 12 lead (12/13/2024 11:06 AM EDT) [facility] Ventricular Rate 72 BPM GE MUSE Atrial Rate 72 BPM GE MUSE TN Interval 230 ms GE MUSE QRS DURATION 142 ms GE MUSE QT Interval 432 ms GE MUSE QTC CALCULATION(BAZE TT) 473 ms GE MUSE P [place] -1 degrees GE MUSE R-[place] 151 degrees GE MUSE T Wave [place] 12 degrees GE MUSE 12/13/2024 10:5 0 AM EDT 12/13/2024 4:33 PM EDT Impressions GE MUSE - 12/13/2024 4:33 PM EDT Sinus rhythm with 1st degree A-V block Non-specific intra-ventricular conduction block Lateral infarct (cited on or before 21-APR-2024) Abnormal ECG When compared with ECG of 21-APR-2024 16:30, Sinus rhythm has replaced Atrial fibrillation Confirmed by Josh ROUSE, YARELI Velazquez (57) on 12/13/2024 4:33:44 PM Narrative Procedure Note Yareli Rouse MD - 12/13/2024 IMPRESSION: Sinus rhythm with 1st degree A-V block Non-specific intra-ventricular conduction block Lateral infarct (cited on or before 21-APR-2024) Abnormal ECG When compared with ECG of 21-APR-2024 16:30, Sinus rhythm has replaced Atrial fibrillation Confirmed by Josh ROUSE SAMER J. ([id number]) on 12/13/2024 4:33:44 PM Gerardo Morris MD ECG ORDERABLES Final Result GE MUSE documented in this encounter Visit Diagnoses Diagnosis Cardiomyopathy (CMS/HCC)- Primary Other primary cardiomyopathies Cardiomyopathy, unspecified type (CMS/HCC) Cardiomyopathy, unspecified type (CMS/HCC) documented in this encounter Admitting Diagnoses Diagnosis Cardiomyopathy (CMS/HCC) Other primary cardiomyopathies documented in this encounter Administered Medications Inactive Administered Medications - up to 3 most recent administrations Medication Order MAR Action Action Date Dose Rate Site ceFAZolin (Ancef) 1,000 mg, gentamicin (Garamycin) 80 mg in sodium chloride irrigation solution 0.9 % 500 mL IRRIGATION irrigation, Once, On 12/13/24 at 1130, For 1 dose, Intraprocedure, Indication: Surgical Prophylaxis Given 12/13/2024 1:57 PM EDT 500 mL ceFAZolin in dextrose (iso-os) (Ancef) IVPB 2 g 2 g, intravenous, at 100 mL/hr, Administer over 30 Minutes, Once, On Fri12/13/24 at 1045, For 1 dose, Preprocedure, Administer within 60 minutes of incision. Duplex bag - activate before hanging., Suspected Indication (Select all that apply): Surgical Prophylaxis New Bag 12/13/2024 12:01 PM EDT 2 g fentaNYL (Sublimaze) injection As needed, Starting on Fri12/13/24 at 1202, Intraprocedure Given 12/13/2024 1:59 PM EDT 12.5 mcg Given 12/13/2024 1:54 PM EDT 12.5 mcg Given 12/13/2024 1:29 PM EDT 12.5 mcg lidocaine (PF) (Xylocaine) 10 mg/mL (1 %) injection As needed, Starting on Fri12/13/24 at 1214, Intraprocedure Given 12/13/2024 12:25 PM EDT 20 mL Given 12/13/2024 12:14 PM EDT 30 mL midazolam (Versed) injection As needed, Starting on Fri12/13/24 at 1202, Intraprocedure Given 12/13/2024 2:03 PM EDT 0.5 mg Given 12/13/2024 1:56 PM EDT 0.5 mg Given 12/13/2024 1:43 PM EDT 0.5 mg sodium chloride 0.9 % infusion Continuous PRN, Starting on Fri12/13/24 at 1201, Intraprocedure New Bag 12/13/2024 12:01 PM EDT 50 mL/hr 50 mL/hr documented in this encounter Active and Recently [...] Latrice Bonilla RN)1356 (Given - Provider: Latrice Bonilla, RN)1403 (Given - Provider: Latrice Bonilla, RN) sodium chloride 0.9 % infusion (COMPLETED) Continuous PRN, Starting on Fri12/13/24 at 1201, Intraprocedure 1201 (New Bag - Prov ider: Claudia Diaz RN) documented in this encounter Care Teams Corn Detasseler Relationship Specialty Start Date End Date Vlad Cesar MD [address] [place] [address] PCP - General 08/19/22 documented as of this encounter
--- OUTSIDE RECORDS SUMMARY | 2024-12-13 14:27 | XMS_ITS ---
Author Name Auto Generated Organization [place] Support Name Relationship Address Phone LATRICE RAMIREZ Next of Kin [address] [place] [address] + ~[phone] NOTTKE, LATRICE Next of Kin [address] [place] [address] + ~[phone] NOTTKE, LATRICE Next of Kin [address] [place] [address] + ~([phone] NOTTKE, LATRICE Next of Kin [address] [place] [address] + ~([phone] Nottke, Latrice Next of Kin [address] [place] [address] + Nottke, Latrice Next of Kin [address] [place] [address] + NOTTKE, LATRICE Next of Kin [address] [place] [address] + ~[phone] Nottke, Latrice Next of Kin [address] [place] [address] + NOTTKE, LATRICE Next of Kin [address] [place] [address] + ~([phone] NOTTKE, LATRICE Next of Kin [address] [place] [address] + ~([phone] NOTTKE, LATRICE Next of Kin [address] [place] [address] + ~(567 NOTTKE, LATRICE Next of Kin [address] [place] [address] + ~(567 NOTTKE, LATRICE Next of Kin [address] [place] [address] + ~(567 NOTTKE, LATRICE Next of Kin [address] [place] [address] + ~(567 NOTTKE, LATRICE Next of Kin [address] [place] [address] + ~([phone] NOTTKE, LATRICE Next of Kin [address] [place] [address] + ~(567 NOTTKE, LATRICE Next of Kin [address] [place] [address] + ~([phone] Nottke, Latrice Next of Kin [address] [place] [address] + Nottke, Latrice Next of Kin [address] [place] [address] + NOTTKE, LATRICE Next of Kin [address] [place] [address] + ~([phone] NOTTKE, LATRICE Next of Kin [address] [place] [address] + ~(567 NOTTKE, LATRICE Next of Kin [address] [place] [address] + ~(567 NOTTKE, LATRICE Next of Kin [address] [place] [address] + ~(567 NOTTKE, LATRICE Next of Kin [address] [place] [address] + ~(567 NOTTKE, LATRICE Next of Kin [address] [place] [address] + ~(567 NOTTKE, LATRICE Next of Kin [address] [place] [address] + ~(567 NOTTKE, LATRICE Next of Kin [address] [place] [address] + ~(567 NOTTKE, LATRICE Next of Kin [address] [place] [address] + ~(567 NOTTKE, LATRICE Next of Kin [address] [place] [address] + ~(567 NOTTKE, LATRICE Next of Kin [address] [place] [address] + ~(567 NOTTKE, LATRICE Next of Kin [address] [place] [address] + ~(567 NOTTKE, LATRICE Next of Kin [address] [place] [address] + ~(567 NOTTKE, LATRICE Next of Kin [address] [place] [address] + ~(567 NOTTKE, LATRICE Next of Kin [address] [place] [address] + ~(567 NOTTKE, LATRICE Next of Kin [address] [place] [address] + ~(567 NOTTKE, LATRICE Next of Kin [address] [place] [address] + ~(567 NOTTKE, LATRICE Next of Kin [address] [place] [address] + ~(567 NOTTKE, LATRICE Next of Kin [address] [place] [address] + ~(567 NOTTKE, LATRICE Next of Kin [address] [place] [address] + ~(567 NOTTKE, LATRICE Next of Kin [address] [place] [address] + ~(567 NOTTKE, LATRICE Next of Kin [address] [place] [address] + ~(567 NOTTKE, LATRICE Next of Kin [address] [place] [address] + ~(567 NOTTKE, LATRICE Next of Kin [address] [place] [address] + ~(567 NOTTKE, LATRICE Next of Kin [address] [place] [address] + ~(567 NOTTKE, LATRICE Next of Kin [address] [place] [address] + ~(567 NOTTKE, LATRICE Next of Kin [address] [place] [address] + ~(567 NOTTKE, LATRICE Next of Kin [address] [place] [address] + ~(567 NOTTKE, LATRICE Next of Kin [address] [place] [address] + ~(567 NOTTKE, LATRICE Next of Kin [address] [place] [address] + ~(567 NOTTKE, LATRICE Next of Kin [address] [place] [address] + ~(567 NOTTKE, LATRICE Next of Kin [address] [place] [address] + ~(567 NOTTKE, LATRICE Next of Kin [address] [place] [address] + ~(567 NOTTKE, LATRICE Next of Kin [address] [place] [address] + ~(567 NOTTKE, LATRICE Next of Kin [address] [place] [address] + ~(567 NOTTKE, LATRICE Next of Kin [address] [place] [address] + ~(567 NOTTKE, LATRICE Next of Kin [address] [place] [address] + ~(567 NOTTKE, LATRICE Next of Kin [address] [place] [address] + ~([phone] Care Team Providers Care Business Administration Professor Name Role Phone HEMMER, JESSICA M Attending Unavailable JAYDEN MARK Attending Unavailable HEMMER, JESSICA M Referring Unavailable MARKJAYDEN Attending Unavailable HEMMER, JESSICA M Referring Unavailable NELYJOHN Attending Unavailable HEMMER, JESSICA M Referring Unavailable NELY, JOHN Attending Unavailable HEMMER, JESSICA M Referring Unavailable NELYJOHN Attending Unavailable HEMMER, JESSICA M Referring Unavailable NELY, JOHN Attending Unavailable HEMMER, JESSICA M Referring Unavailable NELY, JOHN Attending Unavailable HEMMER, JESSICA M Referring Unavailable VLAD CESAR Attending Unavailable NELYJOHN Attending Unavailable HEMMER, JESSICA M Referring Unavailable NELY, JOHN Attending Unavailable HEMMER, JESSICA M Referring Unavailable LORELEI GARRIDO Attending Unavailable HEMMER, JESSICA M Referring Unavailable CRISTIAN MEREDITH Attending Unavailable JOHN MCKAY Attending Unavailable HEMMER, JESSICA M Referring Unavailable MARKJAYDEN Attending Unavailable HEMMER, JESSICA M Referring Unavailable NELY, JOHN Attending Unavailable HEMMER, JESSICA M Referring Unavailable NELY, JOHN Attending Unavailable HEMMER, JESSICA M Referring Unavailable VLAD CESAR Attending Unavailable JAYDEN MARK Attending Unavailable HEMMER, JESSICA M Referring Unavailable NELYJOHN Attending Unavailable HEMMER, JESSICA M Referring Unavailable VLAD CESAR Attending Unavailable HEMMER, JESSICA M Attending Unavailable VLAD CESAR Attending Unavailable CRISTIAN MEREDITH Attending Unavailable VLAD CESAR Attending Unavailable VLAD CESAR Attending Unavailable HEMMER, JESSICA M Attending Unavailable CRISTIAN MEREDITH Attending Unavailable VLAD CESAR Attending Unavailable CRISTIAN MEREDITH Attending Unavailable Lance Plattedy, May Attending Unavailable Lance Plattednia, May Referring Unavailable Al Shweiki, Hemant Attending Unavailable Al Shweiki, Hemant Referring Unavailable Corporate, Doctor Attending Unavailable Al Shweiki, Hemant Attending Unavailable Al Shweiki, Hemant Referring Unavailable Al Shweiki, Hemant Attending Unavailable Al Shweiki, Hemant Referring Unavailable Al Shweiki, Hemant Attending Unavailable Al Shweiki, Hemant Referring Unavailable Abner Roa Admitting Unavailable Abner Roa Attending Unavailable Vlad Cesar Primary Care Unavailable Molly Gallegos Admitting Unavailable Molly Gallegos Attending Unavailable Vlad Cesar Primary Care Unavailable Molly Gallegos Admitting Unavailable Molly Gallegos Attending Unavailable Vlad Cesar Primary Care Unavailable Keri, Devang S Admitting Unavailable Keri, Devang S Attending Unavailable Vlad Cesar Primary Care Unavailable Amaury Chin Admitting Unavailable Amaury Chin Attending Unavailable Vlad Cesar Primary Care Unavailable [facility] Cardio, XXXX Consulting Unavailable Nan, Luigi Admitting Unavailable Selvin Yeh Attending Unavailable Nan, Luigi Admitting Unavailable Selvin Yeh Attending Unavailable [facility] Cardio, XXXX Consulting Unavailable Nan, Luigi Consulting Unavailable Nan, Luigi Admitting Unavailable Selvin Yeh Attending Unavailable Nan, Luigi Consulting Unavailable Nan, Luigi Consulting Unavailable [facility] Cardio, XXXX Consulting Unavailable Nan, Luigi Admitting Unavailable Selvin Yeh Attending Unavailable [facility] Cardio, XXXX Consulting Unavailable Markos Moreno Attending Unavailable Nan, Luigi Consulting Unavailable Nan, Luigi Admitting Unavailable Selvin Yeh Attending Unavailable Nan, Luigi Consulting Unavailable Nan, Luigi Consulting Unavailable [facility] Cardio, XXXX Consulting Unavailable Nan, Luigi Consulting Unavailable Nan, Luigi Admitting Unavailable Selvin Yeh Attending Unavailable Nan, Luigi Consulting Unavailable Nan, Luigi Consulting Unavailable [facility] Cardio, XXXX Consulting Unavailable Nan, Luigi Admitting Unavailable Nan, Luigi Attending Unavailable Nan, Luigi Admitting Unavailable Nan, Luigi Attending Unavailable EZEKIEL KAY Attending Unavailable YARELI ROUSE Referring Unavailable GERARDO EDWARDS Referring Unavailable JULITO ZENDEJAS Attending Unavailable SOFIYA ROSADO Referring Unavailable HORANI, NICHO Referring Unavailable JERRY GERARDO Admitting Unavailable GERARDO EDWARDS Attending Unavailable [place]ON[place], SOFIYA Referring Unavailable ROSADO, SOFIYA Referring Unavailable JERRY GERARDO Referring Unavailable SUZANNE CRAWLEY Attending Unavailable GERARDO EDWARDS Attending Unavailable JULITO ZENDEJAS Referring Unavailable NIRAJ SAN Attending Unavailable JULITO ZENDEJAS Attending Unavailable SOFIYA ROSADO Referring Unavailable JULITO ZENDEJAS Attending Unavailable EZEKIEL KAY Attending Unavailable NIRAJ SAN Referring Unavailable MARIYA CHIN Referring Unavailable HORANI, NICHO Admitting Unavailable ARAM JHA Attending Unavailable ARAM JHA Referring Unavailable ANTHONY BOJORQUEZ Referring Unavailable PROBLEMS DATE TYPE CONDITION / CODE ATTENDING STATUS [facility] 11/17/2024 Admitting Diagnosis Cardiomyopathy, unspecified / I42.9(ICD-10) GERARDO EDWARDS [facility] 12/07/2024 Unknown Atherosclerosis of gambell arteries of left leg with ulceration of other part of foot / I70.245(ICD-10) Molly Gallegos [facility] 11/30/2024 Working Diagnosis Type 2 diabetes mellitus with both eyes affected by moderate nonproliferative retinopathy and macular edema, with long-term current use of insulin / E11.3313(ICD-10) Hemant Estrella [facility] 11/29/2024 Unknown Type 2 diabetes mellitus with foot ulcer / E11.621(ICD-10) Molly Gallegos [facility] 10/21/2024 Unknown Radiculopathy, l umbar region / M54.16(ICD-10) Abner Roa [facility] 10/09/2023 Admitting Diagnosis Atherosclerotic heart disease of gambell coronary artery without angina pectoris / I25.10(ICD-10) CRISTIANA [facility] 07/31/2023 Admitting Diagnosis Mixed hyperlipidemia / E78.2(ICD-10) CRISTIANA [facility] 09/03/2024 Admitting Diagnosis Chronic systolic (congestive) heart failure / I50.22(ICD-10) CRISTIANA [facility] 09/03/2024 Admitting Diagnosis Presence of coronary angioplasty implant and graft / Z95.5(ICD-10) CRISTIANA [facility] 09/03/2024 Admitting Diagnosis Essential (primary) hypertension / I10(ICD-10) CRISTIANA [facility] 09/03/2024 Admitting Diagnosis Paroxysmal atrial fibrillation / I48.0(ICD-10) CRISTIANA [facility] 08/19/2022 Admitting Diagnosis Type 2 diabetes mellitus without complications / E11.9(ICD-10) SUZANNE CRAWLEY [facility] 08/19/2022 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 / Z79.4(ICD-10) SUZANNE CRAWLEY Active [facility] 07/07/2024 Unknown I21.02 / I21.02(ICD-10) Selvin Yeh Active [facility] 05/19/2024 Unknown Other chronic pa in / G89.29(ICD-10) Devang Saavedra Active [facility] 05/03/2024 Admitting Diagnosis PharmD Cardiology Consult / UNK(Unknown) EZEKIEL KAY Active [facility] 10/09/2023 Admitting Diagnosis Atherosclerotic heart disease of gambell coronary artery with other forms of angina pectoris / I25.118(ICD-10) NIRAJ ASN Active [facility] 07/02/2023 Admitting Diagnosis Non-ST elevation (NSTEMI) myocardial infarction / I21.4(ICD-10) NIRAJ SAN Active [facility] 04/27/2024 Admitting Diagnosis Unspecified atrial fibrillation / I48.91(ICD-10) NIRAJ SAN Active [facility] 04/27/2024 Admitting Diagnosis Unspecified atrial flutter / I48.92(ICD-10) NIRAJ SAN Active [facility] 04/19/2024 Admitting Diagnosis Angina pectoris, unspecified / I20.9(ICD-10) ARAM JHA Active [facility] 04/19/[address] elevation (STEMI) myocardial infarction of unspecified site / I21.3(ICD-10) ARAM JHA Active [facility] 04/19/2024 Admitting Diagnosis Acute systolic (congestive) heart failure / I50.21(ICD-10) ARAM JHA Active [facility] 04/19/2024 Admitting Diagnosis Hypokalemia / E87.6(ICD-10) ARAM JHA Active [facility] 08/05/2023 Admitting Diagnosis Other pericardial effusion (noninflammatory) / I31.39(ICD-10) CRISTIANA [facility] 03/05/2024 Admitting Diagnosis Peripheral vascular angioplasty status with implants and grafts / Z95.820(ICD-10) MYRIAMFLAKITOSHELLY [facility] 03/05/2024 Admitting Diagnosis Chronic diastolic (congestive) heart failure / I50.32(ICD-10) MYRIAMMAHADLANCE [facility] 03/02/2024 Working Diagnosis Combined forms of age-related cataract of both eyes / H25.813(ICD-10) Nigel missy [facility] 03/02/2024 Working Diagnosis Early dry stage nonexudative age-related macular degeneration of both eyes / H35.3131(ICD-10) Nigel missy [facility] 01/08/2024 Working Diagnosis Both eyes affected by mild nonproliferative diabetic retinopathy with macular edema, associated with type 2 diabetes mellitus / E11.3213(ICD-10) Rachelle Monson [facility] PROCEDURES DATE CODE DESCRIPTION STATUS SOURCE 11/30/2024 59187(CPT-4) INJECTION EYE DRUG Completed [facility] 11/30/2024 31326(CPT-4) EYE EXAM WITH PHOTOS Completed [facility] 11/30/2024 57936(CPT-4) Ophthal DX Image Post Retina I And R Completed [facility] 11/30/2024 [id number](CPT-4) Vabysmo Prefilled Syringe Comple [facility] 11/30/2024 99731(CPT-4) OFFICE/OUTPATIEN T VISIT, EST Completed [facility] 05/11/2024 82458(CPT-4) INJECTION EYE DRUG Completed [facility] 05/11/2024 [id number](CPT-4) Vabysmo Prefilled Syringe [facility] 03/09/2024 72464(CPT-4) INJECTION EYE DRUG Completed [facility] 03/09/2024 [id number](CPT-4) Vabysmo Prefilled Syringe [facility] 03/02/2024 99309(CPT-4) Ophthal DX Image Post Retina I And R Completed [facility] 03/02/2024 G2211(CPT-4) Complex e/m visit add on Completed [facility] 03/02/2024 69081(CPT-4) OFFICE/OUTPATIEN T VISIT, EST Completed [facility] 01/08/2024 85120(CPT-4) INJECTION EYE DRUG Completed [facility] 01/08/2024 11163(CPT-4) Ophthal DX Image Post Retina I And R Completed [facility] 01/08/2024 [id number](CPT-4) Eylea 1mg Pre-fi lled Syringe Completed [facility] RESULTS PROCEDURE Observed: 12/13/2024 4:33 PM Status: COMPLETED Source: [facility] DUAL CHAMBER ICD IMPLANT PRO CEDURE NOTE DATE OF PROCEDURE: 12/13/24 PERFORMING PHYSICIAN: Dr. Gerardo Edwards CONSENT: Patient LOCATION: EP Lab PROCEDURE PERFORMED: [...] using modified seldinger technique using a 5 Brazilian micro-puncture needle on two occasions and 0.35 [...] for the device above the muscle. 6 Brazilian Safesheaths were placed over the wire. Since the patient had IVCD, the decision was made to proceed with a dual-chamber ICD. The intention was to place the ICD lead in septal location to see whether we could have left fascicular capture resulting in a narrow QRS. To accommodate this [place] sheath was utilized. An active fixation Biotronik pacing lead was then delivered through the sheath to the right ventricle. After confirmation of lead position on orthogonal views (MATTSON and TAMAZIGHT) to confirm septal position, the screw was [...] lead position on orthogonal views (MATTSON and TAMAZIGHT), the screw was activated. Good sensing parameters, [...] discharge or sooner for any concerns. Gerardo Edwards MD Cardiac Electrophysiology NURSNOTE Observed: 12/13/2024 4:03 PM Status: COMPLETED Source: [facility] RN educated pt on d/c instru ctions. This included: site care, limited physical activity, [...] any questions or concerns if pt verbalized. NURSNOTE Observed: 12/13/2024 10:44 AM Status: COMPLETED Source: [facility] CHG wipes and betadine nasal swabs completed. ANES Observed: 12/13/2024 9:42 AM Status: COMPLETED Source: [facility] Patient: Laura Lawson Procedure Information Date/Time: 12/13/24 1130 Procedure: Implant ICD - biventricular Location: [employer] 1 / [facility] (Cath) Providers: Gerardo Edwards MD Clinical information reviewed: Physical Exam Airway Mallampati: II TM distance: >3 FB Neck ROM: full Cardiovascular Dental Pulmonary Neurological Abdominal Anesthesia Plan ASA 3 CSE Anesthetic plan and risks discussed with patient. Use of blood products discussed with patient who. Additional Equipment Requests HP Observed: 12/13/2024 9:41 AM Status: COMPLETED Source: [facility] Electrophysiology Consult Note [facility] Reason for visit: Ischemic cardiomyopathy HPI: Laura Lawson is a 74 y.o. year old with past medical history of multivessel CAD s/p PCI in 2013 after she was deemed a poor candidate for bypass surgery, systolic heart failure with a follow-up cardiac cath on 09/09/2023 revealing high-grade calcific stenosis in LAD ostium and RCA stenosis with subsequent PCI performed on 10/08/2023 with Impella assist. This resulted in improvement of EF to 40 to 45% based on an echo done [...] Use: Not At Risk (02/23/2024) Received from [facility] AUDIT-C Frequency of Alcohol Consumption: Never [...] file Physical Activity: Inactive (02/23/2024) Received from [facility] Exercise Vital Sign Days of Exercise per Week: 0 days Minutes of Exercise per Session: 0 min Stress: No Stress Concern Present (02/23/2024) Received from [facility] [employer] - Occupational Stress Questionnaire Feeling of Stress : Not at all Social Connections: Moderately Isolated (02/23/2024) Received from [facility] [employer] Social Connection and Isolation Panel [NHANES] Frequency of Communication with Friends and Family: More than three times a week Frequency of Social Gatherings with Friends and Family: Once a week Attends Bahai Services: Never Active Member of Clubs or Organizations: Yes Attends Club or Organization Meetings: 1 to 4 times per year Marital Status: Never Intimate Partner Violence: Unknown (04/21/2024) Humiliation, Afraid, Rape, and Kick questionnaire Fear of Current or Ex-Partner: No Emotionally Abused: Not on file Physically Abused: Not on file Sexually Abused: Not on file Depression: Not at risk (10/13/2024) Received from [facility] [employer] PHQ-2 Patient Health Questionnaire-2 Score: 0 Housing Stability: Low Risk (04/21/2024) Housing Stability Vital Sign Unable to Pay for Housing in the Last Year: No Number of Times Moved in the Last Year: Not on file Homeless in the Last Year: No Utilities: Not At Risk (04/21/2024) [facility] Utilities Threatened with loss of utilities: No Health Literacy: Adequate Health Literacy (02/23/2024) Received from [facility] [employer] B1300 Health Literacy Frequency of need for [...] 3 is a small caliber vessel and diffusely diseased. The distal circumflex is occluded. RCA: the [...] with poor EF recovery despite guideline directed medical therapy as well as multiple cardiac interventions. I [...] We also discussed the possibility of lead perforation leading to pericardial effusion or tamponade which may or may not require surgical intervention as well as the possibility of valve damage from entrapment leading to valve regurgitation as well as inappropriate shock from the ICD. Overall the risk of these complications ranged anywhere from 1-5%. Patient verbalized understanding and have agreed to proceed with the procedure. Gerardo Edwards MD Cardiac Electrophysiology [facility] ORDERS ONLY Observed: 12/13/2024 12:00 AM Status: COMPLETED Source: [facility] [id number] Laura Lawson 0 1950 F Date Provider Department Center 12/13/2024 PAT BARRAZA [facility] Family History Problem Relation Age of Onset JABARI disease Mother Heart attack Father Family Status - Relation Status Age at Mother Father US ARTERIAL PVR REST LE Observed: 2024 9:06 AM Status: COMPLETED Source: [facility] [place] [place] [address] Ultrasound Report Signed Patient: Laura Lawson MR#: [id number] : 1950 Acct:[id number] Age/Sex: 74 / F ADM Date: 12/07/24 Loc: Room: Type: [facility] Attending Dr: Molly Gallegos APRN Ordering Provider: Molly Gallegos APRN Date of Service: 12/07/24 US/US arterial pvr rest LE: I70.245, E11.59 Copies to: Molly Gallegos APRN LOWER EXTREMITY SEGMENTAL ARTERIAL DOPSCAN (PVR) INDICATION: Left heel wound PROCEDURE: Right arm blood pressure is 125 ,125 , left is 126 ,126 . Pressures throughout the right leg are cno at the high thigh, at the 163 low thigh, cno at the calf, cno at the ankle using the posterior tibial artery, and cno at the ankle using the dorsalis pedis artery with ankle-brachial index of -NC- -NC- . Pressures throughout the left leg are cno at the high thigh, at the 181 low thigh, cno at the calf and 143 at the ankle using the posterior tibial artery, and 127 at the ankle using the dorsalis pedis artery with ankle-brachial index of 1.13 1.01 . Wave forms by plethysmography are normal. US/US arterial pvr rest LE IMPRESSION: NO HEMODYNAMICALLY SIGNIFICANT PERIPHERAL VASCULAR OCCLUSIVE DISEASE AT REST IN EITHER LOWER EXTREMITY. Impression dictated by: Tee Aguilar MD,FACS,FSVS 12/08/2024 9:07 AM Dictation Location: [id number] Tech: Shari Kulkarni Transcribed By: [facility] 12/08/24906 Dictated By: Tee Aguilar MD 12/08/24905 Signed By: <Electronically signed by Tee Aguilar MD in OV> 12/08/24 09 ORDERS ONLY Observed: 12/06/2024 12:00 AM Status: COMPLETED Source: [facility] [id number] Laura Lawson 0 1950 F Date Provider Department Center 12/06/2024 CHYNA FELICIANO [facility] Family History Problem Relation Age of Onset JABARI disease Mother Heart attack Father Family Status - Relation Status Age at Mother Father 36 Observed: 12/01/2024 11:58 AM Status: COMPLETED Source: [facility] We just weighed her she has put on 20 lbs since November 12 2024 GRAM STAIN Observed: 11/29/2024 10:42 AM Status: F Source: [facility] Gram Stain Result No Bacteria Seen PERFORMED BY: [place] [address] LIAISON SAVITA JEFFERSON M.D. Performed By: #### GS, AER #### [address] AEROBIC CULTURE Observed: 11/29/2024 10:42 AM Status: F Source: [facility] ORGANISM: Pseudomonas aerugi nosa (O:PSEAER) Quantity of Growth Moderate Growth ORGANISM: Klebsiella pneumoniae (O:KLEPNE) Quantity of Growth Moderate Growth ORGANISM: Mariam albicans (O:CANALB) Quantity of Growth Rare Growth No Anaerobes Isolated 3 Days Gram Stain Result No Bacteria Seen Aerobic HAL Charge (NMIC56) SUSCEPTIBILITY ORGANISM: O:PSEAER ANTIBIOTIC INTERPRETATION HAL Amikacin S <16 Aztreonam I <4 Cefepime S <2 Ceftazidime I 4 Ceftazidime/Avibactam S <4 Ceftolozane/Tazobactam S <2 Ciprofloxacin S <0.25 Gentamicin S <2 Levofloxacin S <0.5 Meropenem S <1 Piperacillin/Tazobactam I <8 Tobramycin S <2 Aerobic HAL Charge (NMIC56) SUSCEPTIBILITY ORGANISM: O:KLEPNE ANTIBIOTIC INTERPRETATION HAL Amikacin S <16 Amoxacillin/K Clavulanate S <8 Ampicillin/Sulbactam S <4 Aztreonam S <4 Cefazolin S <2 Cefepime S <2 Ceftazidime S <1 Ceftazidime/Avibactam S <4 Ceftolozane/Tazobactam S <2 Ceftriaxone S <1 Cefuroxime S <4 Ciprofloxacin S <0.25 Ertapenem S <0.5 Gentamicin S <2 Levofloxacin S <0.5 Meropenem S <1 Meropenem/Vaborbactam S <2 Piperacillin/Tazobactam S <8 Tetracycline R >8 Tigecycline S <2 Tobramycin S <2 Trimethoprim/Sulfamethoxazole S <0.5 S = SUSCEPTIBLE I = INTERMEDIATE R = RESISTANT BLANK = DATA NOT AVAILABLE, OR DRUG NOT ADVISABLE OR TESTED R* = RESISTANCE DUE TO EXTENDED SPECTRUM BETA-LACTAMASES ESBL = EXTENDED SPECTRUM BETA-LACTAMASE TFG = THYMIDINE-DEPENDENT STRAIN STEPHANE = BETA-LACTAMASE POSITIVE IB = INDUCIBLE BETA-LACTAMASE. APPEARS IN PLACE OF 'S' WITH SPECIES KNOWN TO POSSESS INDUCIBLE BETA-LACTAMASES. POTENTIALLY THEY MAY BECOME RESISTANT TO ALL B-LACTAM DRUGS. PERFORMED BY: [place] [address] LIAISON SAVITA JEFFERSON M.D. Performed By: #### , [facility] #### [address] ORDERS ONLY Observed: 11/17/2024 12:00 AM Status: COMPLETED Source: [facility] [id number] Lulu,Laura A 0 1950 Date Provider Department Center 11/17/2024 ADALI MATUTE ESTHELA Rebollar Family History Problem Relation Age of Onset JABARI disease Mother Heart attack Father Family Status - Relation Status Age at Mother Father OFFICE VISIT Observed: 11/09/2024 1:15 PM Status: COMPLETED Source: [facility] [id number] Lulu,Laura A 0 1950 Date Provider Department Center 11/09/2024 GERARDO ESPARZA ESTHELA Rebollar Family History Problem Relation Age of Onset JABARI disease Mother Heart attack Father Family Status - Relation Status Age at Mother Father Level of Service:74567 NC OFFICE/OUTPATIENT [facility] 60 MINUTES PROGRESS Observed: 11/09/2024 1:15 PM Status: COMPLETED Source: [facility] Electrophysiology Consult Note [place] [facility] Reason for visit: Ischemic cardiomyopathy HPI: Laura Lawson is a 73 y.o. year old with past medical history of multivessel CAD s/p PCI in 2013 after she was deemed a poor candidate for bypass surgery, systolic heart failure with a follow-up cardiac cath on 09/09/2023 revealing high-grade calcific stenosis in LAD ostium and RCA stenosis with subsequent PCI performed on 10/08/2023 with Impella assist. This resulted in improvement of EF to 40 to 45% based on an echo done [...] TUNNEL RELEASE HYSTERECTOMY THYROID SURGERY SH: Social Determinants of Health Tobacco Use: Low Risk (11/09/2024) Patient History Smoking Tobacco Use: Never Smokeless Tobacco Use: Never Passive Exposure: Not on file Alcohol Use: Not At Risk (02/23/2024) Received from [facility] [employer], [facility] [employer] AUDIT-C Frequency of Alcohol Consumption: Never Average [...] file Physical Activity: Inactive (02/23/2024) Received from [facility] Exercise Vital Sign Days of Exercise per Week: 0 days Minutes of Exercise per Session: 0 min Stress: No Stress Concern Present (02/23/2024) Received from [facility] [place] [employer] - Occupational Stress Questionnaire Feeling of Stress : Not at all Social Connections: Moderately Isolated (02/23/2024) Received from [facility] Social Connection and Isolation Panel [NHANES] Frequency of Communication with Friends and Family: More than three times a week Frequency of Social Gatherings with Friends and Family: Once a week Attends Bahai Services: Never Active Member of Clubs or Organizations: Yes Attends Club or Organization Meetings: 1 to 4 times per year Marital Status: Never Intimate Partner Violence: Unknown (04/21/2024) Humiliation, Afraid, Rape, and Kick questionnaire Fear of Current or Ex-Partner: No Emotionally Abused: Not on file Physically Abused: Not on file Sexually Abused: Not on file Depression: Not at risk (10/13/2024) Received from [facility] PHQ-2 Patient Health Questionnaire-2 Score: 0 Housing Stability: Low Risk (04/21/2024) Housing Stability Vital Sign Unable to Pay for Housing in the Last Year: No Number of Times Moved in the Last Year: Not on file Homeless in the Last Year: No Utilities: Not At Risk (04/21/2024) [facility] Utilities Threatened with loss of utilities: No Health Literacy: Adequate Health Literacy (02/23/2024) Received from [facility] B1300 Health Literacy Frequency of need for help with medical instructions: Never Allergies: Allergies Allergen Reactions Gabapentin Palpitations Other reaction(s): Chest Pain Tramadol Other Other reaction(s): sleeplessness Weight: 89.4kg Visit Vitals BP 128/69 (BP Location: Left arm, Patient Position: Sitting) Pulse 69 Ht 1.575 m (5' 2 ) Wt 89.4 kg (197 lb) SpO2 99% BMI 36.03 kg/m??? OB Status Postmenopausal Smoking Status Never BSA 1.98 m??? Meds: Current Outpatient Medications on File Prior to [...] mouth in the morning. dapagliflozin propanediol (Farxiga) 10 mg Take 1 tablet (10 mg) by mouth in the morning for 94 doses. Do not start before July 08, 2023. (Patient taking differently: Take 5 mg by mouth in the morning.) 30 tablet 3 ezetimibe (Zetia) 10 mg tablet TAKE 1 TABLET BY MOUTH EVERY DAY IN THE MORNING 90 tablet 3 insulin glargine-yfgn 100 unit/mL solution Inject under the skin. meloxicam (Mobic) 15 mg tablet Take 15 [...] 20 mEq by mouth in the morning. sacubitril-valsartan (Entresto) 24-26 mg tablet Take 0.5 [...] 10 mg by mouth in the morning. dulaglutide (Trulicity) 0.75 mg/0.5 mL pen injector Inject 0.75 mg under the skin 1 (one) time per week. (Patient not taking: Reported on 09/03/2024) 2 mL 1 hydrALAZINE (Apresoline) 25 mg tablet Take 25 mg by mouth two times daily. insulin lispro (HumaLOG) 100 unit/mL injection with breakfast, with lunch, and with evening meal. Patient reports taking three times daily 15 minutes before meals. Sliding scale pregabalin (Lyrica) 25 mg capsule Take 25 mg by mouth two times daily. Toujeo Max U-300 SoloStar 300 unit/mL (3 mL) injection Inject 100 Units under the skin in the morning. No current facility-administered medications on file prior to visit. ROS: Review of Systems Cardiovascular: Positive for [...] any previous visit (from the past 4464 hour(s)). Echo: 10/20/2024 07/28/2024 Stress test: Coronary angiogram: [...] 3 is a small caliber vessel and diffusely diseased. The distal circumflex is occluded. RCA: the [...] with poor EF recovery despite guideline directed medical therapy as well as multiple cardiac interventions. I [...] We also discussed the possibility of lead perforation leading to pericardial effusion or tamponade which may or may not require surgical intervention as well as the possibility of valve damage from entrapment leading to valve regurgitation as well as inappropriate shock from the ICD. Overall the risk of these complications ranged anywhere from 1-5%. Patient verbalized understanding and have agreed to proceed with the procedure. Gerardo Edwards MD Cardiac Electrophysiology [facility] ORDERS ONLY Observed: 11/09/2024 12:00 AM Status: COMPLETED Source: [facility] [id number] Laura Lawson 0 1950 F Date Provider Department Center 11/09/2024 5-ADALI GONZALEZ [facility]HE[facility] Family History Problem Relation Age of Onset JABARI disease Mother Heart attack Father Family Status - Relation Status Age at Mother Father 36 Observed: 10/27/2024 10:44 AM Status: COMPLETED Source: [facility] Regarding echo result from : MD Vandana Keating MA When she comes to see jerry, please have him consider increasing entresto to 1 tablet bid. Patient is scheduled to see Dr. Edwards on 11/09/2024. XR LUMBAR SPINE AP/LAT/FLX/EXT Observed: 10/21/2024 1:44 PM Status: COMPLETED Source: [facility] [place] [place] [address] XRay Report Signed Patient: Laura Lawson MR#: [id number] : 1950 Acct:[id number] Age/Sex: 73 / F ADM Date: 10/21/24 Loc: XD Room: Type: [facility] Attending Dr: Abner Roa MD Copies to: Abner Roa MD Ordering Provider: Abner Roa MD Date of Service: 10/21/24 XR/XR lumbar spine AP/LAT/FLX/EXT: Z98.1 - Arthrodesis status AP with lateral neutral, flexion-extension views Lumbar Spine HISTORY: Lower back pain with radiation into the right leg. 1 year duration COMPARISON: 10/23/2023 POSTSURGICAL CHANGES: Stable hardware BONY ALIGNMENT: Continued scoliosis HYPERMOBILITY:No hypermobility LISTHESIS:None FRACTURE: None DEGENERATIVE CHANGES: Progressive L2-3 disc space narrowing with endplate spurring. SOFT TISSUES: Unremarkable BONY MINERALIZATION:Adequate XR/XR lumbar spine AP/LAT/FLX/EXT IMPRESSION: Stable postsurgical changes. Progressive adjacent segment L2-3 spondylosis. Impression dictated by: Amaury Devlin M.D. 10/21/2024 1:48 PM Dictation Location: [facility]-- Transcribed By: [facility] 10/21/24 1348 Dictated By: Amaury Devlin DO 10/21/24 1344 Signed By: <Electronically signed by Amaury Devlin DO in OV> 10/21/24 134 AEROBIC CULTURE Observed: 09/27/2024 10:45 AM Status: F Source: [facility] ORGANISM: Methicillin Resis Staph Aureus (O:MRSA) Quantity of Growth Heavy Growth ORGANISM: Enterococcus faecalis (O:ENTFAC) Quantity of Growth Heavy Growth No Anaerobes Isolated 3 Days Gram Stain Result 1+ Gram Positive Diplococci 2+ Gram Positive Bacilli No White Blood Cells Seen Aerobic HAL Charge (PCMIC38) SUSCEPTIBILITY ORGANISM: O:MRSA ANTIBIOTIC INTERPRETATION HAL Azithromycin R >4 Ceftaroline S 1 Clindamycin R <0.25 Daptomycin S 1 Linezolid S 4 Oxacillin R >2 Penicillin R >2 Tetracycline R >8 Trimethoprim/Sulfamethoxazole R >2 Vancomycin S 1 Aerobic HAL Charge (PCMIC38) SUSCEPTIBILITY ORGANISM: O:ENTFAC ANTIBIOTIC INTERPRETATION HAL Ampicillin S <2 Daptomycin S 4 Linezolid S 2 Penicillin S 2 Vancomycin S 1 S = SUSCEPTIBLE I = INTERMEDIATE R = RESISTANT BLANK = DATA NOT AVAILABLE, OR DRUG NOT ADVISABLE OR TESTED R* = RESISTANCE DUE TO EXTENDED SPECTRUM BETA-LACTAMASES ESBL = EXTENDED SPECTRUM BETA-LACTAMASE TFG = THYMIDINE-DEPENDENT STRAIN STEPHANE = BETA-LACTAMASE POSITIVE IB = INDUCIBLE BETA-LACTAMASE. APPEARS IN PLACE OF 'S' WITH SPECIES KNOWN TO POSSESS INDUCIBLE BETA-LACTAMASES. POTENTIALLY THEY MAY BECOME RESISTANT TO ALL B-LACTAM DRUGS. PERFORMED BY: [place] [address] LIAISON NIMISHA PALACIO M.D. Performed By: #### [facility] #### [address] OFFICE VISIT Observed: 09/03/2024 1:00 PM Status: COMPLETED Source: [facility] [id number] Laura Lawson 1950 F Date Provider Department Center 09/03/2024 JULITO SALAZAR [facility] Family History Problem Relation Age of Onset JABARI disease Mother Heart attack Father Family Status - Relation Status Age at Mother Father Level of Service:[id number] NC OFFICE/OUTPATIENT ESTABLISHED MOD MDM 30 MIN PROGRESS Observed: 09/03/2024 1:00 PM Status: COMPLETED Source: [facility] Cardiology - [facility] Subjective Laura Lawson is a 73 y.o. year old female patient being seen for 6 week follow up. Patient states she is feeling ok. No new complaints. Echo done 07/28/2024 Patient states she seen Dr. Cesar today due to left leg seeping due to swelling. Dr. Cesar ordered ATB for seeping. 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 (CMS/HCC) Low back pain Morbid obesity (CMS/HCC) Neoplasm of uncertain behavior of kidney Obstructive sleep apnea syndrome Osteoarthritis of knee Osteoporosis Peripheral venous insufficiency Polyneuropathy due to type 2 diabetes mellitus ([facility]/HCC) Preoperative evaluation to rule out surgical contraindication Pulmonary function studies abnormal Pure hypercholesterolemia Renal mass Skin sensation disturbance Type 2 diabetes mellitus without complication (CMS/HCC) Umbilical hernia Uric acid nephrolithiasis NSTEMI (non-ST elevated myocardial infarction) ([facility]/HCC) Acute exacerbation of CHF (congestive heart failure) ([facility]) COVID-19 Acquired spondylolisthesis Acute on chronic diastolic heart failure ([facility]) Coronary artery disease (CAD) excluded Diastolic dysfunction GERD (gastroesophageal reflux disease) History of carpal tunnel surgery of right wrist Hyperlipidemia Impaired mobility and endurance Localized edema Lumbar radiculopathy Morbid obesity with body mass index (BMI) of 45.0 to 49.9 in adult ([facility]) Paresthesia of skin Primary osteoarthritis of both knees S/P drug eluting coronary stent placement Ulcer of foot due to type 2 diabetes mellitus ([facility]) Pericardial effusion CAD in gambell artery Coronary artery disease Coronary artery disease involving gambell coronary artery of gambell heart with other form of angina pectoris Chronic systolic heart failure ([facility]) Combined forms of age-related cataract of both eyes History of lumbar fusion Nonexudative age-related macular degeneration Thyroid disease Angina pectoris Lumbar stenosis with neurogenic claudication Acquired absence of both cervix and uterus Acute cystitis without hematuria Carpal tunnel syndrome, left upper limb Cervicalgia Chronic kidney disease, stage 3a ([facility]) Cognitive communication deficit Dysphagia, oral phase History of DVT in adulthood Impaired skin integrity Mild mitral regurgitation Muscle weakness (generalized) Other chronic pain Pain in left knee Type 2 diabetes mellitus with diabetic chronic kidney disease ([facility]) Unspecified systolic (congestive) heart failure ([facility]) Family History Problem Relation Name Age of [...] in ejection fraction to 40 to 45%. She then was admitted in April 2024 with NSTEMI and underwent scoring balloon angioplasty to mid LAD 90% in-stent restenosis. At that time the RCA stents were patent and the circumflex had stable diffuse disease. During that admission she developed Afib and was started on eliquis. She was also discharged on aspirin and brilinta. In addition colchicine was added due to recurrent ISR. On 07/07/2024 she was admitted to [facility] emergency room with chest pain and low blood pressure. Her ECG was consistent with STEMI. She eventually was taken to [facility] and underwent stent placement to the mid LAD. Echocardiogram showed moderately dilated LV with an ejection fraction of 20 to 25%. Entresto was held. Of note an echocardiogram on 06/28/2024 showed ejection fraction 35 to 40%. at visit of 07/19/2024 I stopped aspirin to reduce the risk of bleeding. I also stopped colchicine which was added to prevent in-stent restenosis but did not help. I also resumed Entresto. I ordered a follow-up echocardiogram to assess her ventricular function. Today she reports that she has not had recurrence of chest pain. She has no shortness of breath at rest. Her level of activity is limited. She is currently maintained on Brilinta and Eliquis. she has significant bilateral lower extremity edema with seeping through the skin of the right lower leg. She was seen by her PCP today and was prescribed antibiotics and increasing torsemide dosage. Review of Systems Cardiovascular: Positive for leg swelling. Musculoskeletal: Positive for muscle weakness. Neurological: Positive for weakness. All other systems reviewed and are negative. Objective Visit Vitals BP 112/60 (BP Location: Left arm, Patient Position: Sitting) Pulse 65 Ht 1.575 m (5' 2 ) Wt 93 kg (205 lb) SpO2 99% BMI 37.49 kg/m??? OB Status Postmenopausal Smoking Status Never BSA 2.02 m??? Physical Exam Constitutional: Appearance: She is [...] Left lower le+ Pitting Edema present. Comments: Uses a walker to assist with ambulation Skin: General: Skin is warm and dry. Neurological: General: No focal deficit present. Mental Status: She is alert and oriented to person, place, and time. Psychiatric: Mood and Affect: Mood normal. Behavior: Behavior is cooperative. Judgment: Judgment normal. Allergies Allergies Allergen Reactions Gabapentin Palpitations Other reaction(s): Chest Pain Tramadol Other Other reaction(s): sleeplessness Medications Current Outpatient Medications: allopurinol (Zyloprim) 300 mg tablet, Take 300 mg by mouth in the morning., Disp: , Rfl: apixaban (Eliquis) 5 mg tablet, Take 1 tablet (5 mg) by mouth two times daily., Disp: 180 tablet, Rfl: 3 atorvastatin (Lipitor) 80 mg tablet, Take 80 mg by mouth at bedtime., Disp: , Rfl: baclofen (Lioresal) 10 mg tablet, Take 10 mg by mouth at bedtime., Disp: , Rfl: colchicine 0.6 mg tablet, Take by mouth in the morning., Disp: , Rfl: dapagliflozin propanediol (Farxiga) 10 mg, Take 1 tablet (10 mg) by mouth in the morning for 94 doses. Do not start before July 08, 2023. (Patient taking differently: Take 5 mg by mouth in the morning.), Disp: 30 tablet, Rfl: 3 ezetimibe (Zetia) 10 mg tablet, Take 1 tablet (10 mg) by mouth in the morning., Disp: 90 tablet, Rfl: 3 insulin lispro (HumaLOG) 100 unit/mL injection, with breakfast, with lunch, and with evening meal. Patient reports taking three times daily 15 minutes before meals. Sliding scale, Disp: , Rfl: meloxicam (Mobic) 15 mg tablet, Take 15 mg by mouth in the morning., Disp: , Rfl: metoprolol succinate XL (Toprol-XL) 25 mg 24 hr tablet, Take 12.5 mg by mouth in the morning. Do not crush or chew., Disp: , Rfl: nitroglycerin (Nitrostat) 0.3 mg SL tablet, nitroglycerin 0.3 mg sublingual tablet, Disp: , Rfl: omeprazole (PriLOSEC) [address] capsule, Take 20 mg by mouth before breakfast., Disp: , Rfl: pregabalin (Lyrica) 25 mg capsule, Take 25 mg by mouth two times daily., Disp: , Rfl: sacubitril-valsartan (Entresto) 24-26 mg tablet, Take 0.5 tablets by mouth two times daily., Disp: 90 tablet, Rfl: 3 spironolactone (Aldactone) 25 mg tablet, Take 1 tablet (25 mg) by mouth once daily as directed for 360 doses. (Patient taking differently: Take 12.5 mg by mouth once daily as directed.), Disp: 90 tablet, Rfl: 3 ticagrelor (Brilinta) 90 mg tablet, Take 1 tablet (90 mg) by mouth two times daily for 720 doses., Disp: 180 tablet, Rfl: 3 torsemide (Demadex) 20 mg tablet, Take 10 mg by mouth in the morning., Disp: , Rfl: aspirin 81 mg EC tablet, Take 81 mg by mouth in the morning., Disp: , Rfl: dulaglutide (Trulicity) 0.75 mg/0.5 mL pen injector, Inject 0.75 mg under the skin 1 (one) time per week. (Patient not taking: Reported on 09/03/2024), Disp: 2 mL, Rfl: 1 insulin glargine-yfgn 100 unit/mL solution, Inject under the skin., Disp: , Rfl: Toujeo Max U-300 SoloStar 300 unit/mL (3 mL) injection, Inject 100 Units under the skin in the morning., Disp: , Rfl: Recent Labs Lab Results Component Value Date NA 138 04/22/2024 K 3.9 04/22/2024 CL 106 04/22/2024 CO2 27 04/22/2024 BUN 40 (H) 04/22/2024 CREATININE 1.18 04/22/2024 GLUCOSE 111 (H) 04/22/2024 CALCIUM 9.4 04/22/2024 Lab Results Component Value Date CKTOTAL 467.0 (H) 04/19/2024 TROPONINI 12.78 (HH) 04/20/2024 Lab Results Component Value Date WBC 13.41 (H) 04/22/2024 HGB 12.4 04/22/2024 HCT 40.3 04/22/2024 MCV 92.4 04/22/2024 PLT 411 (H) 04/22/2024 Lab Results Component Value Date CHOL 107 (L) 04/19/2024 TRIG 79 04/19/2024 HDL 50 04/19/2024 Blood testing 03/03/2024: Potassium 4.3, BUN 25, creatinine 0.72, LFTs normal, triglycerides 45, cholesterol 131, HDL 83, LDL 39. Hemoglobin 12.9, platelets 259. Imaging and other tests Echocardiogram 07/28/2024: CONCLUSION: Mild concentric left ventricular hypertrophy Normal left ventricle cavity size Severely reduced left ventricular systolic function, basal and mid apical segments and the apex appear to be akinetic, ejection fraction 30% Normal right ventricle size but mildly reduced systolic function No significant valvular abnormalities Moderate mitral annulus calcification Mild pulmonary insufficiency Trivial pericardial effusion without evidence of tamponade Echocardiogram 07/08/2024: Mild mitral regurgitation, mild to moderate left ventricular hypertrophy, left ventricle is moderately dilated, ejection fraction 20 to 25%. Akinetic mid to distal anterior wall, mid to distal anteroseptal segments, apex. Moderate to severe hypokinesis of the lateral wall. Diastolic dysfunction grade 2, left atrial volume is moderately increased. No significant valve stenosis or regurgitation. Trivial pericardial effusion. Cardiac catheterization/PCI 07/07/2024: Left main angiographically normal, LAD patent stent in proximal segment. Mid LAD 99% stenosis, apical LAD severe diffuse disease. Circumflex moderate ISR of mid circumflex. OM1 and OM 2 are less than 1 mm size vessels. OM 3 is occluded and fills via left to left collaterals. Distal left circumflex is occluded. A medium caliber left posterolateral branch also fills via left to left and right to left collaterals. RCA patent mid segment stent. Mild to moderate ISR in distal RCA. LVEDP 18 mmHg. Mid LAD PCI: A 3 x 18 mm Xience jazzmine point drug-eluting stent was deployed at 14 jamaal and subsequently postdilated with a 3 x 12 mm NC balloon up to 24 jamaal. Echocardiogram 06/28/2024: CONCLUSION: 1. Mild concentric left ventricular hypertrophy with moderately reduced systolic function and segmental wall motion abnormalities involving the apex and apical segments. Estimated LVEF is 35 to 40%. 2. Normal right ventricular size and systolic function. 3. No significant valvular dysfunction. 4. No pericardial effusion. ECG 04/29/2024: sinus bradycardia. ECG 04/20/2024: atrial fibrillation Cardiac catheterization 04/19/2024: Final Impression: 1) 90% in-stent restenosis of the mid LAD s/p scoring balloon angioplasty 2) RCA stents are patent 3) LCX is diffusely diseased and stable in appearance compared with prior angiogram Echocardiogram 11/07/2023: Global left ventricular systolic function is difficult to assess but appears mildly reduced, visually estimated ejection fraction is 40 to 45%. Normal right ventricular size and systolic function. Anterior free space, trivial effusion versus fat pad. ECG 10/08/2023: Sinus rhythm with occasional Premature ventricular complexes, Baseline 50HZ artifact Non-specific intra-ventricular conduction block, Possible Lateral infarct (cited on or before 03-JUL-2023) Inferior infarct (cited on or before 08-OCT-2023) Abnormal ECG Cardiac catheterization/PCI 10/08/2023: Procedure Performed: IVUS assessment of the LAD. [...] and drug eluting stenting of 70% instent restenosis in the proximal right coronary artery, with reduction of the stenosis to 0% by a Synergy XD 3.0 x 32 mm drug eluting stent, post dilated to 3.25 mm at high pressures. Placement of Impella CP for mechanical circulatory support during high risk percutaneous intervention. Left heart catheterization. Access into the left common femoral artery under ultrasound guidance. Limited left common femoral angiogram. Deployment of two 6F Proglide vascular closure devices for pre-closure in the left common femoral artery. Echocardiogram 09/09/2023: Left Ventricle: The left ventricle appears normal in size. Global left ventricular systolic function is difficult to assess but appears reduced. Left ventricular wall thickness is increased. Left Atrium: The left atrium appears enlarged. Overall Conclusions: Due to suboptimal imaging Lumason contrast was administered for opacification and better delineation of endocardial borders. Cardiac catheterization 09/09/2023: Impression/Findings: Coronary angiogram shows severe three-vessel gambell coronary artery disease with a significant heavily calcified nodule in the ostium of the LAD causing severe stenosis. Other severe lesions involve the circumflex and the RCA. Normal left filling pressures. Normal right filling pressures. no pulmonary hypertension. Normal cardiac output and cardiac index. Uncontrolled systemic hypertension. Plan: Patient will be admitted to the hospital with a plan to proceed with Impella assisted percutaneous coronary intervention which will require rotational atherectomy and shockwave lithotripsy due to heavy calcifications, given her high risk anatomy and left ventricular systolic dysfunction. Aspirin 81 mg daily for life. Statin therapy for life. Guideline directed medical therapy for heart failure. ECG 09/09/2023: Sinus bradycardia with 1st degree A-V block Non-specific intra-ventricular conduction block Lateral infarct (cited on or before 03-JUL-2023) Abnormal ECG Echocardiogram 08/14/2023: CONCLUSION: 1. Moderate concentric left ventricular hypertrophy with mildly reduced systolic function. LVEF is estimated at 45%. 2. Normal right ventricular size and systolic function. 3. Small pericardial effusion. 4. Limited study performed with no Doppler interrogation as requested. ECHO 07/23/2023 CONCLUSION: 1. Moderate concentric left ventricular hypertrophy with moderately to severely reduced systolic function. LVEF is estimated at 30%. 2. Normal right ventricular size and systolic function. 3. Severe left atrial dilatation. 4. Mild mitral regurgitation. 5. Moderate circumferential pericardial effusion with no echocardiographic features of tamponade physiology. ECHO 05/17/2022 Normal LV systolic function, LVEF 60% Grade 1 diastolic dysfunction No significant valvular dysfunction No pericardial effusion \Echocardiogram September 2020: Technically difficult study with poor sound transmission, left ventricular systolic function appears at the lower limits of normal, EF 50 to 55%. Normal right ventricular systolic function. No significant valvular dysfunction. Cardiac cath 2014 Procedure: 1. Successful balloon angioplasty and bare-metal stenting of 90% distal right coronary artery stenosis using VeriFLEX 3.0 x 32 mm stent, postdilated to 3.0 mm at high pressures. 2. Successful balloon dilatation and bare-metal stenting of 80% proximal circumflex stenosis using a VeriFLEX 3.5 x 16 mm bare-metal stent, postdilated to 3.5 mm at high pressures. 3. Successful direct stenting of 80% mid left anterior descending stenosis using a VeriFLEX 3.0 x 28 mm bare-metal stent, postdilated to 3.25 mm at high pressures. 4. Successful balloon dilatation and bare-metal stenting of 80% proximal left anterior descending stenosis using a VeriFLEX 3.5 x 20 mm bare-metal stent. 5. Administration of intracoronary nitroglycerin. 6. Limited right femoral angiography. 7. Deployment of a vascular access closure device. Assessment/Plan Diagnoses and all orders for this visit: Chronic HFrEF (heart failure with reduced ejection fraction) ([facility]) - Basic metabolic panel; Future - CBC and differential; Future - Transthoracic echo (TTE) complete; Future - Ambulatory referral to Cardiac Electrophysiology; Future Coronary artery disease involving gambell coronary artery of gambell heart without angina pectoris Status post insertion of drug eluting coronary artery stent Mixed hyperlipidemia Primary hypertension PAF (paroxysmal atrial fibrillation) ([facility]) CAD, status post multiple prior interventions, recent acute STEMI on 07/07/2024 treated with emergency stenting of mid LAD severe in-stent restenosis. Currently she seems to be doing reasonably well. She has no recurrence of angina. She is maintained on Brilinta. She is on atorvastatin 80 mg daily. She is on ezetimibe 10 mg daily. Aspirin was stopped due to being on anticoagulation therapy for A-fib. Continue metoprolol succinate. I have stopped colchicine. This was added in order to prevent in-stent restenosis but it does not seem to have been effective. In addition it will interact with atorvastatin. Heart failure with reduced ejection fraction: New drop in ejection fraction to 20-25% after her anterior STEMI 07/07/2024. Continue GDMT for systolic heart failure including spironolactone, Farxiga, metoprolol succinate and Entresto 24-26 mg half tablet twice daily. Her blood pressure would not tolerate higher dose at this time. Follow-up echocardiogram 07/28/2024 showed LVEF 30%. I discussed ICD therapy for primary prevention of sudden cardiac . At this time I am going to wait another 4 to 6 weeks and repeat an echocardiogram and refer her to cardiac electrophysiology Dr. Gerardo Edwards to make a final decision regarding ICD therapy. She has significant volume overload by exam. I agree with increasing torsemide dosage. I am going to check CBC and BMP in 2 weeks. Hypertension: Blood pressure is well-controlled. Continue current medications. Paroxysmal atrial fibrillation: Currently in sinus rhythm, continue Eliquis. I will plan on follow-up in 6 weeks with an echocardiogram with visit with Dr Gerardo Edwards to follow-up on her ventricular systolic function. If the ejection fraction does not go above 35% then we will need to consider ICD placement. Follow-up with me in 6 months. Follow up in about 6 weeks (around 10/15/2024). Julito Zendejas MD TELEPHONE VISIT Observed: 08/23/2024 11:00 AM Status: COMPLETED Source: [facility] [id number] Laura Lawson A 0 1950 F Date Provider Department Center 08/23/2024 [id number] KAY [facility] Family History Problem Relation Age of Onset JABARI disease Mother Heart attack Father Family Status - Relation Status Age at Mother Father Reason for Visit and Comments: PharmD GLP1RA Management [Other] PROGRESS Observed: 08/23/2024 11:00 AM Status: COMPLETED Source: [facility] Patient stated that at her l ast Fam Med appt, her PCP discontinued Trulicity due to decreased appetite. However, patient's BG readings have been > 180 post-prandially. Informed patient that more stricter BG control is needed. PCP restarted Lantus at 10 units daily in addition to Farxiga 10mg daily. Will defer future management to PCP to decrease risk of medication errors in setting of multiple providers. Ezekiel Kay PharmD Cardiology Outpatient Clinical Pharmacist 08/23/24 ORDERS ONLY Observed: 08/10/2024 12:00 AM Status: COMPLETED Source: [facility] [id number] Laura Lawson 0 1950 F Date Provider Department Center 08/10/[id number]-QZXLOKNPSUZANNE CRAWLEY [facility] Family History Problem Relation Age of Onset JABARI disease Mother Heart attack Father Family Status - Relation Status Age at Mother Father TELEPHONE VISIT Observed: 08/06/2024 11:00 AM Status: COMPLETED Source: [facility] [id number] Laura Lawson A 0 1950 F Date Provider Department Center 08/06/[id number]-YCLEGLIFSUZANNE CRAWLEY [facility] Family History Problem Relation Age of Onset JABARI disease Mother Heart attack Father Family Status - Relation Status Age at Mother Father PROGRESS Observed: 08/06/2024 11:00 AM Status: COMPLETED Source: [facility] PharmD Cardiology Consult - GLP1 Management Referring Provider: Dr. Sofiya Rosado Clinic Location: [facility] Most recent visit: 07/19/[address] Zendejas Insurance: Medicare Part D SUBJECTIVE/OBJECTIVE PharmD received consult from provider to assist with HF/CAD/lipids management. Pertinent PMH includes CAD, HFrEF, HLD, T2DM Most recent EF: 20% (04/19/24)-worsened from previous Most recent hospitalization: 04/19/24-04/22/24: acute NSEMI Current HF Medications: ACEi/ARB/ARNi: Entresto 24-26mg 1/2 tablet BID Beta sierra: Metoprolol succinate 50mg daily MRA: Spironolactone 25mg daily SGLT2i: Farxiga 10mg daily Loop diuretic: Torsemide 20mg daily Other Cardiology Related Medications: Apixaban 5mg BID Colchicine 0.6mg daily Ezetimibe 10mg daily Rosuvastatin 20mg daily Hydralazine 25mg BID Brilinta 90mg BID Atorvastatin 80 mg daily PERTINENT LABS/VITALS Lab Results Component Value Date GLUCOSE 111 (H) 04/22/2024 CALCIUM 9.4 04/22/2024 NA 138 04/22/2024 K 3.9 04/22/2024 CO2 27 04/22/2024 CL 106 04/22/2024 BUN 40 (H) 04/22/2024 CREATININE 1.18 04/22/2024 Hemoglobin A1C (%) Date Value 04/19/2024 9.7 (H) 09/10/2023 10.4 (H) 07/03/2023 10.8 (H) ASSESSMENT/PLAN T2DM: Patient indicated for optimization of DM management due to A1C of 9.7%, not at goal of < 7%. Currently on Farxiga 10mg daily. Recently discharge from SNF. Has not taken Trulicity in past 2 weeks. Will re-start GLP1-RA and follow up with patient for tolerability. -Start Trulicity 0.75 mg once weekly -Continue Farxiga 10 mg daily PATIENT VERBALIZED UNDERSTANDING OF CARE PLAN: Yes PATIENT ADVISED TO CALL BACK WITH QUESTIONS, CONCERNS, OR CHANGE IN SYMPTOMS. Plan of care agreed upon with referring provider. Follow up with PharmD: 08/23/24 Phone Visit Follow up with Cardiology: 09/03/24 Suzanne Crawley PharmD [facility] 08/06/24 OFFICE VISIT Observed: 07/19/2024 10:45 AM Status: COMPLETED Source: [facility] [id number] LuluLaura Thomas 1950 F Date Provider Department Center 07/19/2024 JULITO SALAZAR [facility] Family History Problem Relation Age of Onset JABARI disease Mother Heart attack Father Family Status - Relation Status Age at Mother Father Level of Service:66082 NC OFFICE/OUTPATIENT ESTABLISHED MOD MDM 30 MIN PROGRESS Observed: 07/19/2024 10:45 AM Status: COMPLETED Source: [facility] Cardiology - [facility] Subjective Laura Lawson is a 73 y.o. year old female patient being seen for follow up echo done a few weeks ago. She was admitted to [facility] last month for hematuria and UTI. She says since then she was admitted to [facility] for chest pain. Says she underwent heart cath and PCI. A lot of medications were changed. She says chest pain and SOB have resolved. She's currently doing PT/OT at the SNF, so insurance won't cover cardiac rehab until this is completed. 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 ([facility]) Low back pain Morbid obesity ([facility]) Neoplasm of uncertain behavior of kidney Obstructive sleep apnea syndrome Osteoarthritis of knee Osteoporosis Peripheral venous insufficiency Polyneuropathy due to type 2 diabetes mellitus ([facility]) Preoperative evaluation to rule out surgical contraindication Pulmonary function studies abnormal Pure hypercholesterolemia Renal mass Skin sensation disturbance Type 2 diabetes mellitus without complication ([facility]) Umbilical hernia Uric acid nephrolithiasis NSTEMI (non-ST elevated myocardial infarction) ([facility]) Acute exacerbation of CHF (congestive heart failure) ([facility]) COVID-19 Acquired spondylolisthesis Acute on chronic diastolic heart failure ([facility]) Coronary artery disease (CAD) excluded Diastolic dysfunction GERD (gastroesophageal reflux disease) History of carpal tunnel surgery of right wrist Hyperlipidemia Impaired mobility and endurance Localized edema Lumbar radiculopathy Morbid obesity with body mass index (BMI) of 45.0 to 49.9 in adult ([facility]) Paresthesia of skin Primary osteoarthritis of both knees S/P drug eluting coronary stent placement Ulcer of foot due to type 2 diabetes mellitus ([facility]) Pericardial effusion CAD in gambell artery Coronary artery disease Coronary artery disease involving gambell coronary artery of gambell heart with other form of angina pectoris ([facility]) Chronic systolic heart failure ([facility]) Combined forms of age-related cataract of both eyes History of lumbar fusion Nonexudative age-related macular degeneration Thyroid disease Angina pectoris ([facility]) Lumbar stenosis with neurogenic claudication Acquired absence of both cervix and uterus Acute cystitis without hematuria Carpal tunnel syndrome, left upper limb Cervicalgia Chronic kidney disease, stage 3a ([facility]) Cognitive communication deficit Dysphagia, oral phase History of DVT in adulthood Impaired skin integrity Mild mitral regurgitation Muscle weakness (generalized) Other chronic pain Pain in left knee Type 2 diabetes mellitus with diabetic chronic kidney disease ([facility]/HCC) Unspecified systolic (congestive) heart failure ([facility]) Family History Problem Relation Name Age of [...] in ejection fraction to 40 to 45%. She then was admitted in April 2024 with NSTEMI and underwent scoring balloon angioplasty to mid LAD 90% in-stent restenosis. At that time the RCA stents were patent and the circumflex had stable diffuse disease. During that admission she developed Afib and was started on eliquis. She was also discharged on aspirin and brilinta. In addition colchicine was added due to recurrent ISR. On 07/07/2024 she was admitted to [facility] emergency room with chest pain and low blood pressure. Her ECG was consistent with STEMI. She eventually was taken to the [facility] and underwent stent placement to the mid LAD. Echocardiogram showed moderately dilated LV with an ejection fraction of 20 to 25%. Entresto was held. Of note an echocardiogram on 06/28/2024 showed ejection fraction 35 to 40%. today she reports that she has not had recurrence of chest pain. She has no shortness of breath at rest. Her level of activity is limited. No significant lower extremity edema. She is currently maintained on aspirin, Brilinta and Eliquis. Review of Systems Musculoskeletal: Positive for muscle weakness. Neurological: Positive for weakness. All other systems reviewed and are negative. Objective Visit Vitals BP 115/64 (BP Location: Right arm, Patient Position: Sitting) Pulse 59 Ht 1.575 m (5' 2 ) Wt 92.1 kg (203 lb) SpO2 98% BMI 37.13 kg/m??? OB Status Postmenopausal Smoking Status Never BSA 2.01 m??? Physical Exam Constitutional: Appearance: She is [...] Left lower le+ Pitting Edema present. Comments: In wheelchair Skin: General: Skin is warm and dry. Neurological: General: No focal deficit present. Mental Status: She is alert and oriented to person, place, and time. Psychiatric: Mood and Affect: Mood normal. Behavior: Behavior is cooperative. Judgment: Judgment normal. Allergies Allergies Allergen Reactions Gabapentin Palpitations Other reaction(s): Chest Pain Tramadol Other Other reaction(s): sleeplessness Medications Current Outpatient Medications: allopurinol (Zyloprim) 300 mg tablet, Take 300 mg by mouth in the morning., Disp: , Rfl: apixaban (Eliquis) 5 mg tablet, Take 1 tablet (5 mg) by mouth two times daily., Disp: 180 tablet, Rfl: 3 aspirin 81 mg EC tablet, Take 81 mg by mouth in the morning., Disp: , Rfl: atorvastatin (Lipitor) 80 mg tablet, Take 80 mg by mouth at bedtime., Disp: , Rfl: baclofen (Lioresal) 10 mg tablet, Take 10 mg by mouth at bedtime., Disp: , Rfl: dapagliflozin propanediol (Farxiga) 10 mg, Take 1 tablet (10 mg) by mouth in the morning for 94 doses. Do not start before July 08, 2023. (Patient taking differently: Take 5 mg by mouth in the morning.), Disp: 30 tablet, Rfl: 3 ezetimibe (Zetia) 10 mg tablet, Take 1 tablet (10 mg) by mouth in the morning., Disp: 90 tablet, Rfl: 3 insulin glargine-yfgn 100 unit/mL solution, Inject under the skin., Disp: , Rfl: insulin lispro (HumaLOG) 100 unit/mL injection, with breakfast, with lunch, and with evening meal. Patient reports taking three times daily 15 minutes before meals. Sliding scale, Disp: , Rfl: meloxicam (Mobic) 15 mg tablet, Take 15 mg by mouth in the morning., Disp: , Rfl: metoprolol succinate XL (Toprol-XL) 25 mg 24 hr tablet, Take 12.5 mg by mouth in the morning. Do not crush or chew., Disp: , Rfl: nitroglycerin (Nitrostat) 0.3 mg SL tablet, nitroglycerin 0.3 mg sublingual tablet, Disp: , Rfl: omeprazole (PriLOSEC) [address] capsule, Take 20 mg by mouth before breakfast., Disp: , Rfl: potassium chloride CR (Klor-Con M20) 20 mEq ER tablet, Take 1 tablet (20 mEq) by mouth with breakfast for 95 doses. Do not crush or chew., Disp: 30 tablet, Rfl: 3 pregabalin (Lyrica) 25 mg capsule, Take 25 mg by mouth two times daily., Disp: , Rfl: spironolactone (Aldactone) 25 mg tablet, Take 1 tablet (25 mg) by mouth once daily as directed for 360 doses. (Patient taking differently: Take 12.5 mg by mouth once daily as directed.), Disp: 90 tablet, Rfl: 3 ticagrelor (Brilinta) 90 mg tablet, Take 1 tablet (90 mg) by mouth two times daily for 720 doses., Disp: 180 tablet, Rfl: 3 torsemide (Demadex) 20 mg tablet, Take 10 mg by mouth in the morning., Disp: , Rfl: Trulicity 1.5 mg/0.5 mL pen injector, Inject 1.5 mg under the skin 1 (one) time per week., Disp: , Rfl: sacubitril-valsartan (Entresto) 24-26 mg tablet, Take 0.5 tablets by mouth two times daily., Disp: 90 tablet, Rfl: 3 Toujeo Max U-300 SoloStar 300 unit/mL (3 mL) injection, Inject 100 Units under the skin in the morning., Disp: , Rfl: Recent Labs Lab Results Component Value Date NA 138 04/22/2024 K 3.9 04/22/2024 CL 106 04/22/2024 CO2 27 04/22/2024 BUN 40 (H) 04/22/2024 CREATININE 1.18 04/22/2024 GLUCOSE 111 (H) 04/22/2024 CALCIUM 9.4 04/22/2024 Lab Results Component Value Date CKTOTAL 467.0 (H) 04/19/2024 TROPONINI 12.78 (HH) 04/20/2024 Lab Results Component Value Date WBC 13.41 (H) 04/22/2024 HGB 12.4 04/22/2024 HCT 40.3 04/22/2024 MCV 92.4 04/22/2024 PLT 411 (H) 04/22/2024 Lab Results Component Value Date CHOL 107 (L) 04/19/2024 TRIG 79 04/19/2024 HDL 50 04/19/2024 Blood testing 03/03/2024: Potassium 4.3, BUN 25, creatinine 0.72, LFTs normal, triglycerides 45, cholesterol 131, HDL 83, LDL 39. Hemoglobin 12.9, platelets 259. Imaging and other tests Echocardiogram 07/08/2024: Mild mitral regurgitation, mild to moderate left ventricular hypertrophy, left ventricle is moderately dilated, ejection fraction 20 to 25%. Akinetic mid to distal anterior wall, mid to distal anteroseptal segments, apex. Moderate to severe hypokinesis of the lateral wall. Diastolic dysfunction grade 2, left atrial volume is moderately increased. No significant valve stenosis or regurgitation. Trivial pericardial effusion. Cardiac catheterization/PCI 07/07/2024: Left main angiographically normal, LAD patent stent in proximal segment. Mid LAD 99% stenosis, apical LAD severe diffuse disease. Circumflex moderate ISR of mid circumflex. OM1 and OM 2 are less than 1 mm size vessels. OM 3 is occluded and fills via left to left collaterals. Distal left circumflex is occluded. A medium caliber left posterolateral branch also fills via left to left and right to left collaterals. RCA patent mid segment stent. Mild to moderate ISR in distal RCA. LVEDP 18 mmHg. Mid LAD PCI: A 3 x 18 mm Xience jazzmine point drug-eluting stent was deployed at 14 jamaal and subsequently postdilated with a 3 x 12 mm NC balloon up to 24 jamaal. Echocardiogram 06/28/2024: CONCLUSION: 1. Mild concentric left ventricular hypertrophy with moderately reduced systolic function and segmental wall motion abnormalities involving the apex and apical segments. Estimated LVEF is 35 to 40%. 2. Normal right ventricular size and systolic function. 3. No significant valvular dysfunction. 4. No pericardial effusion. ECG 04/29/2024: sinus bradycardia. ECG 04/20/2024: atrial fibrillation Cardiac catheterization 04/19/2024: Final Impression: 1) 90% in-stent restenosis of the mid LAD s/p scoring balloon angioplasty 2) RCA stents are patent 3) LCX is diffusely diseased and stable in appearance compared with prior angiogram Echocardiogram 11/07/2023: Global left ventricular systolic function is difficult to assess but appears mildly reduced, visually estimated ejection fraction is 40 to 45%. Normal right ventricular size and systolic function. Anterior free space, trivial effusion versus fat pad. ECG 10/08/2023: Sinus rhythm with occasional Premature ventricular complexes, Baseline 50HZ artifact Non-specific intra-ventricular conduction block, Possible Lateral infarct (cited on or before 03-JUL-2023) Inferior infarct (cited on or before 08-OCT-2023) Abnormal ECG Cardiac catheterization/PCI 10/08/2023: Procedure Performed: IVUS assessment of the LAD. [...] and drug eluting stenting of 70% instent restenosis in the proximal right coronary artery, with reduction of the stenosis to 0% by a Synergy XD 3.0 x 32 mm drug eluting stent, post dilated to 3.25 mm at high pressures. Placement of Impella CP for mechanical circulatory support during high risk percutaneous intervention. Left heart catheterization. Access into the left common femoral artery under ultrasound guidance. Limited left common femoral angiogram. Deployment of two 6F Proglide vascular closure devices for pre-closure in the left common femoral artery. Echocardiogram 09/09/2023: Left Ventricle: The left ventricle appears normal in size. Global left ventricular systolic function is difficult to assess but appears reduced. Left ventricular wall thickness is increased. Left Atrium: The left atrium appears enlarged. Overall Conclusions: Due to suboptimal imaging Lumason contrast was administered for opacification and better delineation of endocardial borders. Cardiac catheterization 09/09/2023: Impression/Findings: Coronary angiogram shows severe three-vessel gambell coronary artery disease with a significant heavily calcified nodule in the ostium of the LAD causing severe stenosis. Other severe lesions involve the circumflex and the RCA. Normal left filling pressures. Normal right filling pressures. no pulmonary hypertension. Normal cardiac output and cardiac index. Uncontrolled systemic hypertension. Plan: Patient will be admitted to the hospital with a plan to proceed with Impella assisted percutaneous coronary intervention which will require rotational atherectomy and shockwave lithotripsy due to heavy calcifications, given her high risk anatomy and left ventricular systolic dysfunction. Aspirin 81 mg daily for life. Statin therapy for life. Guideline directed medical therapy for heart failure. ECG 09/09/2023: Sinus bradycardia with 1st degree A-V block Non-specific intra-ventricular conduction block Lateral infarct (cited on or before 03-JUL-2023) Abnormal ECG Echocardiogram 08/14/2023: CONCLUSION: 1. Moderate concentric left ventricular hypertrophy with mildly reduced systolic function. LVEF is estimated at 45%. 2. Normal right ventricular size and systolic function. 3. Small pericardial effusion. 4. Limited study performed with no Doppler interrogation as requested. ECHO 07/23/2023 CONCLUSION: 1. Moderate concentric left ventricular hypertrophy with moderately to severely reduced systolic function. LVEF is estimated at 30%. 2. Normal right ventricular size and systolic function. 3. Severe left atrial dilatation. 4. Mild mitral regurgitation. 5. Moderate circumferential pericardial effusion with no echocardiographic features of tamponade physiology. ECHO 05/17/2022 Normal LV systolic function, LVEF 60% Grade 1 diastolic dysfunction No significant valvular dysfunction No pericardial effusion \Echocardiogram September 2020: Technically difficult study with poor sound transmission, left ventricular systolic function appears at the lower limits of normal, EF 50 to 55%. Normal right ventricular systolic function. No significant valvular dysfunction. Cardiac cath 2014 Procedure: 1. Successful balloon angioplasty and bare-metal stenting of 90% distal right coronary artery stenosis using VeriFLEX 3.0 x 32 mm stent, postdilated to 3.0 mm at high pressures. 2. Successful balloon dilatation and bare-metal stenting of 80% proximal circumflex stenosis using a VeriFLEX 3.5 x 16 mm bare-metal stent, postdilated to 3.5 mm at high pressures. 3. Successful direct stenting of 80% mid left anterior descending stenosis using a VeriFLEX 3.0 x 28 mm bare-metal stent, postdilated to 3.25 mm at high pressures. 4. Successful balloon dilatation and bare-metal stenting of 80% proximal left anterior descending stenosis using a VeriFLEX 3.5 x 20 mm bare-metal stent. 5. Administration of intracoronary nitroglycerin. 6. Limited right femoral angiography. 7. Deployment of a vascular access closure device. Assessment/Plan Diagnoses and all orders for this visit: Chronic HFrEF (heart failure with reduced ejection fraction) ([facility]) - sacubitril-valsartan (Entresto) 24-26 mg tablet; Take 0.5 tablets by mouth two times daily. - Transthoracic echo (TTE) complete; Future Coronary artery disease involving gambell coronary artery of gambell heart without angina pectoris Status post insertion of drug eluting coronary artery stent Mixed hyperlipidemia Primary hypertension PAF (paroxysmal atrial fibrillation) ([facility]) CAD, status post multiple prior interventions, recent acute STEMI on 07/07/2024 treated with emergency stenting of mid LAD severe in-stent restenosis. I reviewed the documentation from the hospitalization. Currently she seems to be doing reasonably well. She has no recurrence of angina. She is maintained on DAPT with aspirin and Brilinta. She is on atorvastatin 80 mg daily. She is on ezetimibe 10 mg daily. Given that she is on triple therapy with DAPT and Eliquis, I am going to stop aspirin in 2 weeks to reduce the risk of bleeding especially given her prior history of hematuria. Continue Brilinta. Continue atorvastatin and ezetimibe. Continue metoprolol succinate. I am also stopping colchicine. This was added in order to prevent in-stent restenosis but it does not seem to have been effective. In addition it will interact with atorvastatin. Heart failure with reduced ejection fraction: New drop in ejection fraction to 20-25% after her anterior STEMI. Continue GDMT for systolic heart failure including spironolactone, Farxiga and metoprolol succinate. I am going to resume Entresto 24-26 mg half tablet twice daily. Her blood pressure would not tolerate higher dose at this time. Hypertension: Review of her recent blood pressure monitoring shows a systolic blood pressure ranging from 100-1 26 systolic. Diastolic blood pressure ranges from 60-80. Heart rate 58-94 bpm. Continue current medications and adding Entresto as noted above. Paroxysmal atrial fibrillation: Currently in sinus rhythm, continue Eliquis. I will plan on seeing her in follow-up in 6 weeks with an echocardiogram to follow-up on her ventricular systolic function. If the ejection fraction does not go above 35% then we will need to consider ICD placement. Follow up in about 6 weeks (around 08/30/2024). Julito Zendejas MD CODING QUERY Observed: 07/14/2024 8:31 AM Status: C Source: [facility] Coding Query From: Andrew ARGUETA, Martina To: Selvin Yeh DO; Cc: Adali Weldon; Sent: 07/14/2024 08:31:44 EST ! Subject: Coding Query Due Date/Time: 07/20/2024 08:31:00 EST Caller Name: LAURA LAWSON; Caller Number: H Hi Dr. Yeh, I saw your response to Lissa's query regarding CHF. I apologize that chronic was not listed in choices. I need to clarify the CHF based on your response to the query and what was documented in the DC summary. Please see below: The following diagnosis was indicated for this patient: Systolic and diastolic CHF, chronic The Progress Notes and/or Discharge Summary, Consultation, Operative Report, Pathology Report or other provider documentation for this patient stated the following: DC summary- discharge diagnosis 2. systolic and diastolic CHF, chronic Hospital Course 73-year-old female with past medical history of CAD status post multiple PCI's, heart failure reduced ejection fraction, CKD, diabetes, GERD, HLD, presented to ER due to chest pain Starting around 1315-day of admission. Slowly introduced heart failure medications. Echo shows mild to moderate LVH. Moderately dilated LV. EF 20 to 25%. Akinetic mid to distal anterior wall, mid to distal anterior septal segments, apex. Moderate to severe hypokinesis of lateral or wall. Grade 2 diastolic dysfunction. Trivial pericardial effusion. 07/08 cardio progress note- 2. Heart failure with reduced ejection fraction (I50.20: Unspecified systolic (congestive) heart failure) Follow up on the echocardiogram results -Start patient on Toprol-XL 12.5 mg/day -If hemodynamics are stable and at baseline okay to give spironolactone 12.5 mg this afternoon. -Will plan to restart dapagliflozin 5 mg/day later this evening is hemodynamics are stable (home dose 10 mg/day) - Hold off on restarting Entresto for today. H&G-35-cejs-old female with past medical history of CAD status post multiple PCI's, heart failure reduced ejection fraction, history of heart failure with reduced ejection fraction with last echo October 2023 showing left ventricular ejection fraction of 40 to 45% 07/08 ECHO-Interpretation Summary There is mild mitral regurgitation. mild to moderate left ventricular hypertrophy. The left ventricle is moderately dilated. Ejection Fraction = 20-25%. Akinetic mid to distal anterior wall, mid to distal anteroseptal segments, apex. Moderate to severe hypokinesis of the lateral wall. Diastolic dysfunction, Grade II (pseudonormalization pattern). The left atrial volume is moderately increased. Based on your medical judgment, can you please clarify which is the wording most closely reflecting the condition of the patient? [___]Chronic systolic and diastolic CHF [___]Acute on chronic systolic and diastolic CHF [___]Chronic systolic CHF [___]Acute on chronic systolic CHF [___]Other (please specify): In responding to this request, please exercise your independent professional judgement. The fact that a question is asked does not imply that any particular answer is desired or expected. Thank you! Martina [phone] Acute on chronic systolic and diastolic CHF From: Selvin Yeh DO To: Andrew ARGUETA, Martina; Sent: 07/30/2024 13:28:46 EST Subject: RE: Coding Query Caller Name: LAURA LAWSON; Caller Number: H TELEPHONE Observed: 07/13/2024 12:00 AM Status: COMPLETED Source: [facility] [id number] Laura Lawson 1950 F Date Provider Department Center 07/13/2024 E[facility]EL GRIDER [facility] Family History Problem Relation Age of Onset JABARI disease Mother Heart attack Father Family Status - Relation Status Age at Mother Father 36 Observed: 07/12/2024 10:57 AM Status: COMPLETED Source: [facility] Rx was discontinued by pharm acist INPATIENT PATIENT SUMMARY Observed: 06/11 6:55 PM Status: F Source: [facility] Inpatient Patient Summary JABARI LAWSONWEN Thomas :1950 Visit Date:07/07/2024 Inpatient Discharge Instructions Your Care Team Admitting Physician - Luigi Montana MD Consulting Physician - [facility] Cardio, XXXX Luigi Montana MD Reason for Your Visit Chest pain radiating on the left arm Your Diagnosis STEMI (ST elevation myocardial infarction) Systolic and diastolic CHF, chronic CAD (coronary artery disease) History of DVT in adulthood HLD (hyperlipidemia) Hypertension Diabetes Chronic GERD KJ on CPAP Obesity Chest pain Tests Performed BMP -- Results Pending -- CBC w/ Auto Diff -- Results Pending -- CV Cardiovascular -- Results Pending -- Echo Transthoracic Complete XR Chest Single View Please visit your patient portal for your results or contact your primary care physician. This Is Your Medications List allopurinol (allopurinol 300 mg Tab) amoxicillin (amoxicillin 500 mg oral tablet) apixaban (Eliquis 5 mg oral tablet) aspirin (aspirin 81 mg Oral EC Tab) atorvastatin (atorvastatin 80 mg Tab) baclofen (baclofen 10 mg Tab) calcium citrate (calcium (as calcium citrate) 200 mg oral tablet) colchicine (colchicine 0.6 mg Tab) dapagliflozin (dapagliflozin 10 mg oral tablet) dulaglutide (Trulicity Pen 3 mg/0.5 mL subcutaneous solution) ezetimibe (ezetimibe 10 mg Tab) guaifenesin (Mucinex 600 mg Tab-ER) insulin glargine (Insulin Glargine Solostar Pen (concentrated) 300 units/mL subcutaneous solution) insulin lispro (Insulin Lispro KwikPen 100 units/mL injectable solution) meloxicam (meloxicam 15 mg Tab) metoprolol (metoprolol succinate 25 mg ER Tab) nitroglycerin (nitroglycerin 0.3 mg sublingual tablet) omeprazole (omeprazole 40 mg Cap-DR) oxycodone (oxyCODONE 5 mg Tab) potassium chloride (Potassium Chloride (Qce-Jqop-Lil M20) 20 mEq oral tablet, extended release) pregabalin (pregabalin 25 mg Cap) spironolactone (spironolactone 25 mg Tab) ticagrelor (Brilinta (ticagrelor) 90 mg oral tablet) torsemide (torsemide 20 mg Tab) [Image Removed: STOP]Stop taking these medications hydrALAZINE (hydrALAZINE 25 mg Tab) sacubitril-valsartan (Entresto 97 mg-103 mg oral tablet) Procedure History Arterial stent (07/07/2024), Cardiac catheterization, left heart (07/07/2024), Cardiac catheterization, left heart (07/07/2024), PCI (percutaneous coronary intervention) of left anterior descending branch of coronary artery (07/07/2024). Discharge Vitals Temperature (Oral) 36.9 ???C Heart Rate (Monitored) 77 Respiratory Rate 16 Blood Pressure 120/66 Weight 92.4 kg What to do next Instructions From Your Doctor Event Name Event Result Pending Diagnostic Test Results None Discharge Instructions Please return to ER if symptoms change or worsen. Please follow-up with cardiology soon as instructed. Please take medication as prescribed. New Follow Up Appointments after Discharge Follow Up with ARSENIO BREWER, VLAD Enriquez, MED When: Where: [address] [place] [address]- Follow Up with JULITO ZENDEJAS MD When: Within 1 to 2 weeks Comments: Call for followup appointment. pt needs close follow up Where: Medications What How Much When Instructions Next Dose Changed dapagliflozin (dapagliflozin 10 mg oral tablet) 0.5 Tablets By Mouth Every day Changed metoprolol (metoprolol succinate 25 mg ER Tab) 0.5 Tablets By Mouth Every day Changed oxycodone (oxyCODONE 5 mg Tab) 1 Tablets By Mouth Every 6 hours as needed for as needed for pain Printed Prescription Changed spironolactone (spironolactone 25 mg Tab) 0.5 Tablets By Mouth Every day Changed torsemide (torsemide 20 mg Tab) 0.5 Tablets By Mouth Every day Unchanged allopurinol (allopurinol 300 mg Tab) 1 Tablets By Mouth Every day Unchanged amoxicillin (amoxicillin 500 mg oral tablet) 1 Tablets By Mouth 2 times a day Unchanged apixaban (Eliquis 5 mg oral tablet) 1 Tablets By Mouth 2 times a day Unchanged aspirin (aspirin 81 mg Oral EC Tab) 1 Tablets By Mouth Every day Unchanged atorvastatin (atorvastatin 80 mg Tab) 1 Tablets By Mouth At bedtime Unchanged baclofen (baclofen 10 mg Tab) 1 Tablets By Mouth Every day Unchanged calcium citrate (calcium (as calcium citrate) 200 mg oral tablet) 1 Tablets By Mouth 2 times a day Unchanged colchicine (colchicine 0.6 mg Tab) 1 Tablets By Mouth Every day Unchanged dulaglutide (Trulicity Pen 3 mg/ 0.5 mL subcutaneous solution) 1.5 Milligram Subcutaneous Every week Unchanged ezetimibe (ezetimibe 10 mg Tab) 1 Tablets By Mouth Every day Unchanged guaifenesin (Mucinex 600 mg Tab-ER) 1 Tablets By Mouth 2 times a day Unchanged insulin glargine (Insulin Glargine Solostar Pen (concentrated) 300 units/ mL subcutaneous solution) 30 Units Subcutaneous At bedtime Unchanged insulin lispro (Insulin Lispro KwikPen 100 units/ mL injectable solution) See instructions Unchanged meloxicam (meloxicam 15 mg Tab) 1 Tablets By Mouth Every day Unchanged nitroglycerin (nitroglycerin 0.3 mg sublingual tablet) 1 Tablets Sublingual Every 5 minutes as needed for for chest pain Unchanged omeprazole (omeprazole 40 mg Cap-DR) 1 Capsules By Mouth Every day Unchanged potassium chloride (Potassium Chloride (Knv-Stcz-Llr M20) 20 mEq oral tablet, extended release) 1 Tablets By Mouth Every day Unchanged pregabalin (pregabalin 25 mg Cap) 1 Capsules By Mouth 2 times a day Unchanged ticagrelor (Brilinta (ticagrelor) 90 mg oral tablet) 1 Tablets By Mouth 2 times a day What How Much When Comments Stop Taking hydrALAZINE (hydrALAZINE 25 mg Tab) 1 Tablets By Mouth 2 times a day Stop Taking sacubitril-valsartan (Entresto 97 mg-103 mg oral tablet) 1 Tablets By Mouth 2 times a day Test Results CBC BMP WBC: 11.8 E9/L High (07/09/24 05:48:00) Glucose Lvl: 94 mg/dL (07/09/24 05:48:00) RBC: 4.1 E12/L Low (07/09/24 05:48:00) BUN: 24 mg/dL High (07/09/24 05:48:00) HGB: 13.2 gm/dL (07/09/24 05:48:00) Creatinine: 0.9 mg/dL (07/09/24 05:48:00) Hct: 38.7 % (07/09/24 05:48:00) BUN/Creat Ratio: 27 High (07/09/24 05:48:00) MCV: 94.7 fL (07/09/24 05:48:00) Sodium Lvl: 136 mmol/L (07/09/24 05:48:00) MCH: 32.3 pg (07/09/24 05:48:00) Potassium Lvl: 4.4 mmol/L (07/09/24 05:48:00) MCHC: 34.1 gm/dL (07/09/24 05:48:00) Chloride: 102 mmol/L (07/09/24 05:48:00) RDW: 21.2 % High (07/09/24 05:48:00) CO2: 25 mmol/L (07/09/24 05:48:00) Platelet: 282 E9/L (07/09/24 05:48:00) AGAP: 13 mEq/L (07/09/24 05:48:00) MPV: 9.4 fL (07/09/24 05:48:00) Calcium Lvl: 10.1 mg/dL (07/09/24 05:48:00) Allergies gabapentin (Unknown) Problems Ongoing - Any problem that you are currently receiving treatment for. CAD (coronary artery disease) Chronic GERD Diabetes History of DVT in adulthood HLD (hyperlipidemia) Hypertension Obesity KJ on CPAP Historical - Any problem that you are no longer receiving treatment for. Atherosclerotic heart disease of gambell coronary artery without angina pectoris Chronic kidney disease Congestive heart failure Diabetes mellitus GERD-HRQL (Gastroesophageal Reflux Disease-Health Related Quality of Life) questionnaire Gout Hypercholesterolemia Sleep apnea Devices Implanted/Removed This Visit Notice: You have devices implanted this visit that may not be MRI compatible. Implanted PTCA of LAD Left Anterior Descending Coronary Artery Xience Skypoint Coronary Stent 07/07/2024 Education Materials [place], [place] Cardiovascular PCI DISCHARGE INSTRUCTIONS Diet: ??? Resume pre-procedure diet. ??? Increase water intake the next 2 days to flush dye out of the body. Activity: If groin access: ??? Limit activity today. Do not operate a vehicle, machinery or power tools. ??? NO LIFTING OVER 10 POUNDS (a gallon of milk weighs 8 pounds) for 3 days. ??? Limit climbing stairs, bending, squatting and stooping for 3 days. ??? May resume driving in 24 hours. ??? Let pain/discomfort guide your activity. If you are having pain, stop. ??? No sexual activity for 1 week. ??? Return to the Emergency Room if you have trouble breathing, walking or nausea and vomiting. Medications: ??? Resume pre-procedure medication, unless otherwise directed. ??? Hold the following medications for 48 hours post procedure: Actoplus Met Glucophage Glucophage XR Glucovance Avandamet Fortamet Apo-metformin Glycon Kim-metformin Glumetza Janumet Metaglip Riomet Glycomet ??? Minimal pain, soreness and/or discomfort is expected. ??? If you are prescribed an aspirin and/or antiplatelet (such as Plavix, Brilinta or Effient) do NOT stop taking these medications for any reason without talking to your building certifier Site Care: ??? Do not remove dressing for 24 hours unless it becomes saturated, then replace. ??? Keep site clean and dry; inspect site daily. ??? Do not use any lotions, powders, or ointments at the groin or wrist site for 1 week. ??? May shower 24 hours after the procedure. Clean site with soap and water. Pat dry and apply band aid. No tub baths, swimming or hot tubs for 3 days. Post Procedure: ??? Soreness and tenderness to the site can last up to one week. ??? Bruising may occur to site. ??? A responsible adult should be with you for the first 24 hours after you arrive home. ??? Keep follow-up appointment. ??? Carry your stent card with you at all times. This provides information about your heart disease for any doctor who cares for you. ??? No smoking for 24 hours as it increases the risk of developing blood clots. ??? If you are interested in smoking cessation, contact [facility] at [phone], ext. [phone]. ??? In the event you are unable to reach your physician, please call [facility] at [phone] and the cup trimming machine operator will assist you. Seek Medicare Care for: ??? Bleeding: Apply continuous pressure to the site and Call 911. ??? Should the arm or leg become cold, numb, blue or white call your physician immediately. ??? Signs of infection are redness, warmth, swelling, getting more sore, colored drainage, fever or chills ??? Chest pain ??? Blood in your urine or stool ??? Black tarry stools ??? Common Emergency Awareness Tips IS IT A STROKE? Act FAST and Check for these signs: FACE Does the face look uneven? ARM Does one arm drift down? SPEECH Does their speech sound strange? TIME Call at any sign of stroke Heart Attack Signs Chest discomfort: Most heart attacks involve discomfort in the center of the chest and lasts more than a few minutes, or goes away and comes back. It can feel like uncomfortable pressure, squeezing, fullness or pain. Discomfort in upper body: Symptoms can include pain or discomfort in one or both arms, back, neck, jaw or stomach. Shortness of breath: With or without discomfort. Other signs: Breaking out in a cold sweat, nausea, or lightheaded. Remember, MINUTES DO MATTER. If you experience any of these heart attack warning signs, call to get immediate medical attention! Patient Survey You may receive a survey in the mail asking you about your stay with us. We want to hear from you, please share your experience with us by completing your survey. Thank you for choosing [facility]. Lj Award Nomination The LJ (Diseases Attacking the Immune SYstem) Award is an international recognition program that honors and celebrates the skillful, compassionate care nurses provide every day. Anyone who experiences or observes amazing care being provided by a nurse is encouraged to submit a nomination. To nominate your nurse, use your smart phone to scan the QR code below. Patient Portal You may access all of your results and other medical record information on our secure patient portal. If you are not signed up for this yet, please contact [employer] at [phone] to get signed up today. Patient Name: LAURA LAWSON I have received this information and my questions have been answered. Patient/Mulling Machine Operator Name: Patient/Mulling Machine Operator Signature: Relationship to Patient: Witness Name/Signature: Date: INTERDISCIPLINARY NOTE - SHIRAZ E CABLEMAN Observed: 07/09/2024 12:10 PM Status: F Source: [facility] Interdisciplinary Note - Shiraz e Supervisor Painting Patient is awake and alert in bed, previously rounded with Dr Yeh. Pt is from [facility] and plan to return back today. Pt sttes her sister is aware of plan, as she was here earlier. Medicare rights reviewed. . PCP verified and insurance information reviewed and DME discussed. Contact information provided and white board update Result Comment: Electronical ly Signed By: Andrei ARGUETA, Dulce\.br\Date and Time Signed: 07/09/24 12:11 EST CAPILLARY GLUCOSE POC Collected: 2024 12:08 PM Status: F Source: [facility] TYPE CODE TESTS RESULT OUT OF RANGE REFERENCE UNITS LAB 2340-8([facility]) GLUCOSE:MCNC: PT:BLD:SEMIQN :TEST STRIP.AUTOMAT ED 106 High 55-99 mg/dL Performed By: #### [id number] #### [facility] [address] [place] [address] DISCHARGE SUMMARY Observed: 07/09/2024 11:32 AM Status: F Source: [facility] Discharge Summary Admission and Discharge Information Admit Date/Time:07/07/2024 15:49 Admitting Physician - Luigi Montana MD Consulting Physician - [facility] Cardio, XXXX Luigi Montana MD Admitting Diagnoses: Discharge Order Date Discharge Patient - Ordered -- 07/09/24 11:31:00 EST, back to senior living Discharge Diagnoses 1. STEMI (ST elevation myocardial infarction), 07/07/2024 2. Systolic and diastolic CHF, chronic, 07/09/2024 3. CAD (coronary artery disease), 07/07/2024 4. History of DVT in adulthood, 07/08/2024 5. HLD (hyperlipidemia), 07/07/2024 6. Hypertension, 07/07/2024 7. Diabetes, 07/07/2024 8. Chronic GERD, 07/07/2024 9. KJ on CPAP, 07/08/2024 10. Obesity, 07/07/2024 Chest pain, 07/07/2024 Procedure History Arterial stent (07/07/2024), Cardiac catheterization, left heart (07/07/2024), Cardiac catheterization, left heart (07/07/2024), PCI (percutaneous coronary intervention) of left anterior descending branch of coronary artery (07/07/2024). Hospital Course 73-year-old female with past medical history of CAD status post multiple PCI's, heart failure reduced ejection fraction, CKD, diabetes, GERD, HLD, presented to ER due to chest pain Starting around 1315-day of admission. Patient stated pain was radiating to left arm. Patient is from facility and they gave her 3 aspirin and 3 nitro. Patient did have low blood pressure of first 57/33. ER patient's blood pressure was 81/49. EKG consistent with STEMI. Code STEMI was called. Cardiology saw patient in ED and patient refused to have heart cath done at [facility] at first despite cardiology as well as ED physician strongly encouraging her to do so. Then arrangements were made for patient be transferred to [place] however once patient hurts she would be flying in a helicopter she said she did not realize it was that serious and agreed to have it done here. Patient was taken to [facility] [employer] [facility] stent placed mid LAD. Patient was then transferred to ICU. 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 She was observed in ICU. Patient was having very soft pressures for first 24 hours. Did watch patient in ICU additional day and pressures remained stable. Slowly introduced heart failure medications. Echo shows mild to moderate LVH. Moderately dilated LV. EF 20 to 25%. Akinetic mid to distal anterior wall, mid to distal anterior septal segments, apex. Moderate to severe hypokinesis of lateral or wall. Grade 2 diastolic dysfunction. Trivial pericardial effusion. Cardiology recommended holding Entresto until follow-up with building certifier as well as other changes as noted below. Patient's symptoms improved during stay. Patient's vital signs remained stable. Discussed diagnosis and treatment plan with patient who agree and accept plan of treatment. Patient stable at discharge. Med changes Aspirin for 2 weeks Decrease Farxiga to 5 mg daily Hold Entresto until follow-up with building certifier Decrease spironolactone to 12.5 daily Decrease torsemide to 10 mg daily Stop hydralazine Decrease metoprolol from 75 mg daily to 12.5 mg daily Follow-up appointments Oceanography Professor in [place] within 1 to 2 weeks PCP 5 to 7 days Discharge time 37 minutes which included extensive conversation with patient about diagnosis and treatment plan. Along with communication with consultants, nursing, case management. Services Consulted Consult to Cardiology - Ordered -- 07/07/24 16:25:00 EST, STEMI, Consult and Co-manage, [facility] Physical Exam Vitals & Measurements T: 36.7 ???C(Oral) TMIN: 36.4 ???C(Oral) TMAX: 36.7 ???C(Oral) HR: 65(Monitored) RR: 16 BP: 95/58 SpO2: 95% WT: 92.4 kg General: Obese, NAD Skin: Warm, dry, catheterization site dressing clean dry and intact Head: No trauma, normocephalic Neck: Trachea midline, supple, negative for JVD Eye: Conjunctive are clear, clear sclera , EOMI ENMT: oral mucosa moist, no lesions or edema nose or external ears Cardiovascular: Regular rate and rhythm, S1-S2 present, negative for murmurs rubs or gallops Respiratory: Diminished Chest wall: no deformity. Gastrointestinal: Abdomen soft, bowel sounds present, nontender to palpation Back: No tenderness Extremities: Range of motion intact, no edema Neurological: awake, alert, speech normal, cranial nerves II through XII intact, no sensory defects, alert and oriented x3 Psychiatric: cooperative, affect appropriate for age, pleasant Tests Performed BMP -- Results Pending -- CBC w/ Auto Diff -- Results Pending -- CV Cardiovascular -- Results Pending -- Echo Transthoracic Complete XR Chest Single View Please visit your patient portal for your results or contact your primary care physician. Discharge Plan Discharge Disposition Discharge To, Anticipated II - [facility] Discharge Medication List Prescriptions metoprolol succinate 25 mg ER Tab, 12.5 mg= 0.5 tab(s), Oral, Daily oxyCODONE 5 mg Tab, 5 mg= 1 tab(s), Oral, q6hr, PRN Home allopurinol 300 mg Tab, 300 mg= 1 tab(s), Oral, Daily amoxicillin 500 mg oral tablet, 500 mg= 1 tab(s), Oral, BID aspirin 81 mg Oral EC Tab, 81 mg= 1 tab(s), Oral, Daily atorvastatin 80 mg Tab, 80 mg= 1 tab(s), Oral, Bedtime baclofen 10 mg Tab, 10 mg= 1 tab(s), Oral, Daily Brilinta (ticagrelor) 90 mg oral tablet, 90 mg= 1 tab(s), Oral, BID calcium (as calcium citrate) 200 mg oral tablet, 950 mg= 1 tab(s), Oral, BID colchicine 0.6 mg Tab, 0.6 mg= 1 tab(s), Oral, Daily dapagliflozin 10 mg oral tablet, 5 mg= 0.5 tab(s), Oral, Daily Eliquis 5 mg oral tablet, 5 mg= 1 tab(s), Oral, BID ezetimibe 10 mg Tab, 10 mg= 1 tab(s), Oral, Daily Insulin Glargine Solostar Pen (concentrated) 300 units/mL subcutaneous solution, 30 unit(s), SubCutaneous, Bedtime Insulin Lispro KwikPen 100 units/mL injectable solution, See Instructions meloxicam 15 mg Tab, 15 mg= 1 tab(s), Oral, Daily Mucinex 600 mg Tab-ER, 600 mg= 1 tab(s), Oral, BID nitroglycerin 0.3 mg sublingual tablet, 0.3 mg= 1 tab(s), SubLingual, q5min, PRN omeprazole 40 mg Cap-DR, 40 mg= 1 cap(s), Oral, Daily Potassium Chloride (Iwa-Oqga-Wmp M20) 20 mEq oral tablet, extended release, 20 mEq= 1 tab(s), Oral, Daily pregabalin 25 mg Cap, 25 mg= 1 cap(s), Oral, BID spironolactone 25 mg Tab, 12.5 mg= 0.5 tab(s), Oral, Daily torsemide 20 mg Tab, 10 mg= 0.5 tab(s), Oral, Daily Trulicity Pen 3 mg/0.5 mL subcutaneous solution, 1.5 mg, SubCutaneous, qWeek Follow-up With When Contact Information ARSENIO BREWER, VLAD En[place], [address] [address]- Additional Instructions: JULITO ZENDEJAS MD Within 1 to 2 weeks Additional Instructions: Call for followup appointment. pt needs close follow up Patient Education CV - Cardiovascular PCI Discharge Instructions (Custom) Result Comment: Electronical ly Signed By: Selvin Yeh DO\.br\Date and Time Signed: 07/09/24 11:32 EST CODING QUERY Observed: 07/09/2024 10:46 AM Status: F Source: [facility] Coding Query From: Lissa Funez RN To: Selvin Yeh DO; Sent: 07/09/2024 10:46:21 EST ! Subject: Coding Query Due Date/Time: 07/10/2024 10:46:00 EST Caller Name: LAURA LAWSON; Caller Number: H Documentation in the medical record indicates this patient has been admitted with or diagnosed as having: Heart failure with reduced ejection fraction The following is also documented in the medical record: Other 07/08 Progress note. 2. Heart failure with reduced ejection fraction (I50.20: Unspecified systolic (congestive) heart failure) EF as low as 20 to 30% Hold Entresto Hold hydralazine Hold Jardiance Hold spironolactone 07/08 Cardio --2. Heart failure with reduced ejection fraction-- Follow up on the echocardiogram results -Start patient on Toprol-XL 12.5 mg/day -If hemodynamics are stable and at baseline okay to give spironolactone 12.5 mg this afternoon. -Will plan to restart dapagliflozin 5 mg/day later this evening is hemodynamics are stable (home dose 10 mg/day) - Hold off on restarting Entresto for today. Based on your medical judgment, can you please specify a diagnosis? Select all that apply: Heart Failure: [___]Acute Systolic (Reduced EF) Heart Failure [___]Other: In responding to this request, please exercise your independent professional judgement. The fact that a question is asked does not imply that any particular answer is desired or expected. Thank you![email or web address] [phone] CODING QUERY Observed: 07/09/2024 10:46 AM Status: C Source: [facility] Coding Query From: Lissa Funez RN To: Selvin Yeh DO; Sent: 07/09/2024 10:46:21 EST ! Subject: Coding Query Due Date/Time: 07/10/2024 10:46:00 EST Caller Name: LAURA LAWSON; Caller Number: H Documentation in the medical record indicates this patient has been admitted with or diagnosed as having: Heart failure with reduced ejection fraction The following is also documented in the medical record: Other 07/08 Progress note. 2. Heart failure with reduced ejection fraction (I50.20: Unspecified systolic (congestive) heart failure) EF as low as 20 to 30% Hold Entresto Hold hydralazine Hold Jardiance Hold spironolactone 07/08 Cardio --2. Heart failure with reduced ejection fraction-- Follow up on the echocardiogram results -Start patient on Toprol-XL 12.5 mg/day -If hemodynamics are stable and at baseline okay to give spironolactone 12.5 mg this afternoon. -Will plan to restart dapagliflozin 5 mg/day later this evening is hemodynamics are stable (home dose 10 mg/day) - Hold off on restarting Entresto for today. Based on your medical judgment, can you please specify a diagnosis? Select all that apply: Heart Failure: [___]Acute Systolic (Reduced EF) Heart Failure [___]Other: In responding to this request, please exercise your independent professional judgement. The fact that a question is asked does not imply that any particular answer is desired or expected. Thank you!lissa [phone] From: Selvin eYh DO To: Lissa Funez RN; Sent: 07/12/2024 11:24:34 EST Subject: RE: Coding Query Caller Name: LAURA LAWSON; Caller Number: H question... shouldnt it be chronic HFrEF ifthe patient had prior to arrival? the exacerbation noted. pt had [place] CAPILLARY GLUCOSE POC Collected: 07/09/2024 8:54 AM Status: F Source: [facility] TYPE CODE TESTS RESULT OUT OF RANGE REFERENCE UNITS LAB 2340-8(LOINC) GLUCOSE:MCNC: PT:BLD:SEMIQN :TEST STRIP.AUTOMAT ED 126 High 55-99 mg/dL Result Comment: Cleaned Mete r Performed By: #### [id number] #### [facility] [address] [place] [address] BMP Collected: 5:48 AM Status: F Source: [facility] TYPE CODE TESTS RESULT OUT OF RANGE REFERENCE UNITS LAB 2345-7(LOINC) GLUCOSE:MCNC :PT:SER/PLAS :QN: 94 Normal 55-199 mg/dL LAB 3094-0(LOINC) UREA NITROGEN:MCN C:PT:SER/REMEDIOS S:QN: 24 High 5-21 mg/dL LAB 2160-0(LOINC) CREATININE:M CNC:PT:SER/P LAS:QN: 0.9 Normal 0.5-1.3 mg/dL LAB 3097-3([facility]) UREA NITROGEN/CRE ATININE:MRTO :PT:SER/PLAS :QN: 27 High 10-20 No Units LAB 87270-5([facility]) CALCIUM:MCNC :PT:SER/PLAS :QN: 10.1 Normal 8.9-11.1 mg/dL LAB 2951-2([facility]) SODIUM:SCNC: PT:SER/PLAS: QN: 136 Normal 135-145 mmol/L LAB 2823-3([facility]) POTASSIUM:SC NC:PT:SER/PL :QN: 4.4 Normal 3.5-5.3 mmol/L LAB 2075-0([facility]) CHLORIDE:SCN C:PT:SER/REMEDIOS S:QN: 102 Normal 101-111 mmol/L LAB 8-9([facility]) CARBON DIOXIDE:SCNC :PT:SER/PLAS :QN: 25 Normal 21-31 mmol/L LAB 42461-1([facility]) ANION GAP:SCNC:PT: SER/PLAS:QN: 13 Normal 6-16 mEq/L Performed By: #### [id number] # ### [facility] [address] [place] [address] EGFR Collected: 5:48 AM Status: F Source: [facility] TYPE CODE TESTS RESULT OUT OF RANGE REFERENCE UNITS LAB 52343699([facility]) eGFR 68 Normal >=59 mL/min/1 .7 3 m2 Performed By: #### [id number] #### [facility] [address] [place] [address] CBC W/ AUTO DIFF Collected: 07/09/2024 5:48 AM Statu s: F Source: [facility] TYPE CODE TESTS RESULT OUT OF RANGE REFERENCE UNITS LAB 59118-0([facility]) LEUKOCYTES^^RODOLFO ECTED FOR NUCLEATED ERYTHROCYTES:NCN C:PT:BLD:QN:AUTO MATED COUNT 11.8 High 4.0-11.0 E9/L LAB 789-8([facility]) ERYTHROCYTES:NCN C:PT:BLD:QN:AUTO MATED COUNT 4.1 Low 4.3-5.9 E12/L LAB 718-7(LOINC) HEMOGLOBIN:MCNC: PT:BLD:QN: 13.2 Normal 12.0-16.0 gm/dL LAB 4544-3(LOINC) HEMATOCRIT:VFR:P T:BLD:QN:AUTOMAT ED COUNT 38.7 Normal 34.0-46.0 % LAB 788-0(LOINC) ERYTHROCYTE DISTRIBUTION WIDTH:RATIO:PT:R BC:QN:AUTOMATED COUNT 21.2 High 10.9-14.2 % LAB 785-6(INC) ERYTHROCYTE MEAN CORPUSCULAR HEMOGLOBIN:ENTMA SS:PT:RBC:QN:AUT OMATED COUNT 32.3 Normal 27.0-34.0 pg LAB 786-4(INC) ERYTHROCYTE MEAN CORPUSCULAR HEMOGLOBIN CONCENTRATION:MC NC:PT:RBC:QN:AUT OMATED COUNT 34.1 Normal 31.4-36.0 gm/dL LAB 787-2(INC) ERYTHROCYTE MEAN CORPUSCULAR VOLUME:ENTVOL:PT :RBC:QN:AUTOMATE D COUNT 94.7 Normal 80.0-100.0 fL LAB 59135-5(INC) PLATELET MEAN VOLUME:ENTVOL:PT :BLD:QN:AUTOMATE D COUNT 9.4 Normal 6.4-10.8 fL LAB 54130050(LOINC ) Platelet 282.0 Normal 150.0-500.0 E9/L Result Comment: Platelet clu mping present, platelet count appears normal on slide. LAB 769-0(LOINC) NEUTROPHILS.SEGM ENTED/100 LEUKOCYTES:NFR:P T:BLD:QN:MANUAL COUNT 62.0 Normal 36.0-75.0 % LAB 764-1(LOINC) NEUTROPHILS.BAND FORM/100 LEUKOCYTES:NFR:P T:BLD:QN:MANUAL COUNT 1.0 Normal 0.0-6.0 % LAB 732-8(LOINC) LYMPHOCYTES:NCNC :PT:BLD:QN:MANUA L COUNT 16.0 Normal 14.0-50.0 % LAB 743-5(LOINC) MONOCYTES:NCNC:P T:BLD:QN:MANUAL COUNT 2.0 High 0.2-1.0 E9/L LAB 714-6(INC) EOSINOPHILS/100 LEUKOCYTES:NFR:P T:BLD:QN:MANUAL COUNT 4.0 Normal 0.0-8.0 % LAB 705-4(LOINC) BASOPHILS:NCNC:P T:BLD:QN:MANUAL COUNT 0.0 Normal 0.0-0.2 E9/L LAB 753-4(LOINC) NEUTROPHILS:NCNC :PT:BLD:QN:MANUA L COUNT 7.4 Unknown E9/L LAB 13444-0(INC) LYMPHOCYTES:NCNC :PT:BLD:QN: 1.9 Normal 1.0-4.0 E9/L LAB 712-0(INC) EOSINOPHILS:NCNC :PT:BLD:QN:MANUA L COUNT 0.5 Normal 0.0-0.5 E9/L LAB 15845-4(INC) ERYTHROCYTE SIZE:MORPH:PT:BL D:NOM: NORMAL Unknown Performed By: #### [id number] # ### [facility] [address] [place] [address] CAPILLARY GLUCOSE POC Collected: 07/08/2024 8:17 PM Status: F Source: [facility] TYPE CODE TESTS RESULT OUT OF RANGE REFERENCE UNITS LAB 2340-8([facility]) GLUCOSE:MCNC: PT:BLD:SEMIQN :TEST STRIP.AUTOMAT ED 225 High 55-99 mg/dL Result Comment: Notified RN/ MD Performed By: #### [id number] #### [facility] [address] [place] [address] CAPILLARY GLUCOSE POC Collected: 07/08/2024 5:04 PM Status: F Source: [facility] TYPE CODE TESTS RESULT OUT OF RANGE REFERENCE UNITS LAB 2340-8([facility]) GLUCOSE:MCNC: PT:BLD:SEMIQN :TEST STRIP.AUTOMAT ED 97 Normal 55-99 mg/dL Result Comment: Notified RN/ MD Performed By: #### [id number] #### [facility] [address] [place] [address] INTERDISCIPLINARY NOTE - PT Observed: 3:19 PM Status: F Source: [facility] Interdisciplinary Note - PT PT Evaluation completed with an AMPAC score of 19/24. Pt currently requires CGA/Min A for bed mobility and transfers with CGA. Pt was able to ambulate with FWW with no LOB. Will follow daily. Pt would benefit from returning to [facility] for continued PT services to return pt to OF Values of n EDUCATION VIDEO Observed: 2024 2:03 PM Status: F Source: [facility] Get[employer]ice Learning Participant s GetWell Understands Education eduFire Education Video Carotid Artery Stenting: Returning Home ECHO TRANSTHORACIC COMPLETE Observed: 2:02 PM Status: F Source: [facility] Echocardiology Procedure Exam Date/Time Accession # Ordering Echo Transthoracic 07/08/2024 14:02 EST [id number] Luigi Montana MD Complete CPT code 77346 11076 Reason for Exam (Echo Transthoracic Complete) Chest pain Report [facility] [address] [place] [address] Adult Echocardiogram Report Name: LAURA LAWSON Study Date: 07/08/2024 01:29 PM BP: 97/57 mmHg Patient Location: [address] Bed(s) [facility] HR: 62 : 1950 Gender: Female Height: 62 in Age: 73 yrs Ethnicity: T Weight: 203 lb Reason For Study: Chest pain BSA: 1.9 m2 History: High Cholesterol,HTN,Diabetes,CAD,KJ,Stents,Obesity Ordering Physician: Nan^Luigi Performed By: Lashon Baca, EMILY Interpretation Summary There is mild mitral regurgitation. mild to moderate left ventricular hypertrophy. The left ventricle is moderately dilated. Ejection Fraction = 20-25%. Akinetic mid to distal anterior wall, mid to distal anteroseptal segments, apex. Moderate to severe hypokinesis of the lateral wall. Diastolic dysfunction, Grade II (pseudonormalization pattern). The left atrial volume is moderately increased. No significant valve stenosis or regurgitation. Trivial pericardial effusion. Procedure A complete two-dimensional transthoracic echocardiogram was performed (2D, M- mode, spectral and color flow Doppler). Left Ventricle Echocardiology Report mild to moderate left ventricular hypertrophy. The left ventricle is moderately dilated. Ejection Fraction = 20-25%. Akinetic mid to distal anterior wall, mid to distal anteroseptal segments, apex. Moderate to severe hypokinesis of the lateral wall. Diastolic dysfunction, Grade II (pseudonormalization pattern). Left Atrium The left atrial volume is moderately increased. Right Atrium The right atrium is grossly normal. Right Ventricle The right ventricular systolic function is normal. The right ventricle is normal size. Aortic Valve Focal calcification. No aortic regurgitation. There is no aortic stenosis. Mitral Valve Moderate to severe mitral annular calcification. There is mild mitral regurgitation. No mitral valve stenosis. Tricuspid Valve There is trace tricuspid regurgitation. Right ventricular systolic pressure is 28 mmHg. No evidence of tricuspid stenosis. Pulmonic Valve There is no pulmonic valve regurgitation. Mild pulmonic valvular regurgitation. No evidence of stenosis. Arteries The aortic root is not well visualized. Venous The inferior vena cava is normal in size, and collapses normally with respiration. Effusion Trivial pericardial effusion, not hemodynamically significant. MMode/2D Measurements & Calculations RVDd: 4.0 cm LVIDd: 5.6 cm FS: 12.8 % Ao root diam: 2.8 cm IVSd: 1.2 cm LVIDs: 4.9 cm EDV(Teich): 155.6 ml LVPWd: 1.4 cm ESV(Teich): 113.4 ml Ao root area: 6.1 cm2 EF(Teich): 27.1 % LA dimension: 5.1 cm LVOT diam: 2.1 cm LVLd ap4: 11.2 cm EDV(MOD-sp2): 227.0 ml SV(MOD-sp4): 53.0 ml LVOT area: 3.3 cm2 EDV(MOD-sp4): 193.0 ml ESV(MOD-sp2): 182.0 ml LVLs ap4: 10.7 cm EF(MOD-sp2): 19.8 % ESV(MOD-sp4): 140.0 ml EF(MOD-sp4): 27.5 % TAPSE: 1.9 cm IVC Diam: 1.3 cm RVIDd/LVIDd: 0.70 EF (MOD-bp): 23.8 % Echocardiology Report LA Vol Index: 46.9 ml/m2 Doppler Measurements & Calculations MV E max radha: 123.0 cm/sec MV dec time: 0.22 sec Ao V2 max: 129.0 cm/sec LV V1 max P.7 mmHg MV A max radha: 97.9 cm/sec Ao max P.7 mmHg LV V1 max: 65.6 cm/sec MV E/A: 1.3 Lat Peak E' Radha: 4.5 cm/sec ABBIE(V,D): 1.7 cm2 E/E' Lat: 27.6 Med Peak E' Radha: 5.1 cm/sec E/E' Med: 24.1 TR max radha: 323.4 cm/sec RAP systole: 3.0 mmHg AV VR: 0.51 TR max P.8 mmHg RVSP(TR): 44.8 mmHg FINAL REPORT Dictated: 07/08/2024 1:29 pm Liugi Montana MD Signed (Electronic Signature): 07/08/2024 3:45 pm Signed by: Luigi Montana MD Transcribed by: TORSTEN Technologist: VIRGEN INTERDISCIPLINARY NOTE - OT Observed: 1:59 PM Status: F Source: [facility] Interdisciplinary Note - OT Pt is seen this date for OT evaluation. [facility] score: 16/24. Pt presents with overall decreased functional activity tolerance, UE strength, dynamic balance, and reports of low back/sciatic pain, limiting independence and safety with ADL tasks and functional transfers. pt will benefit from further OT treatment during hospital stay to address these areas and maximize independence and safety with ADL tasks and transfers. OT recommending return to SNF for further treatment at d/c. PROGRESS NOTE-PHYSICIAN Observed: 2024 12:22 PM Status: F Source: [facility] Progress Note-Physician Subjective Patient is resting comfortably in bed. She underwent PCI to mid LAD with a 3 x 18 mm Xience jazzmine point drug-eluting stent. Does not report any complaints of chest pain. Does not report any complaint of discomfort over the right femoral access site. Objective Vitals & Measurements T: 36.5 ???C(Oral) TMIN: 36.4 ???C(Oral) TMAX: 37.5 ???C(Oral) HR: 76(Monitored) RR: 10 BP: 102/57 BP: 105/42(Line) SpO2: 97% HT: 157.48 cm WT: 91.6 kg Intake & Output This visit (24 hour periods starting at 07:00 EST) 07/08/24 * 07/07/24 07/06/24 Total Summary Intake mL -- 851.24 -- Output mL -- 750 -- Fluid Balance -- 101.24 -- Intake (3) Oral Intake mL -- 50 -- Sodium Chloride 0.9% mL -- 800.44 -- heparin mL -- 0.8 -- Total -- 851.24 -- Output (1) Urine Voided mL -- 750 -- Total -- 750 -- Counts (0) * This column has not completed the indicated time period. Physical Exam HEENT- no pallor,no icterus, no cyanosis Neck- no JVD, no bruit Chest- bilateral clear breath sounds, no rhonchi or crackles CVS- S1S2 soft Extremities- no ankle edema Neuro- alert, oriented x 3 Lab Results WBC: 8.3 E9/L (07/08/24 05:50:00) WBC: 8.3 E9/L (07/08/24 05:50:00) RBC: 3.7 E12/L Low (07/08/24 05:50:00) RBC: 3.7 E12/L Low (07/08/24 05:50:00) HGB: 11.8 gm/dL Low (07/08/24 05:50:00) HGB: 11.8 gm/dL Low (07/08/24 05:50:00) Hct: 35 % (07/08/24 05:50:00) Hct: 35 % (07/08/24 05:50:00) MCV: 94.9 fL (07/08/24 05:50:00) MCV: 94.9 fL (07/08/24 05:50:00) MCH: 31.9 pg (07/08/24 05:50:00) MCH: 31.9 pg (07/08/24 05:50:00) MCHC: 33.7 gm/dL (07/08/24 05:50:00) MCHC: 33.7 gm/dL (07/08/24 05:50:00) RDW: 21.7 % High (07/08/24 05:50:00) RDW: 21.7 % High (07/08/24 05:50:00) Platelet: 269 E9/L (07/08/24 05:50:00) Platelet: 269 E9/L (07/08/24 05:50:00) MPV: 7.7 fL (07/08/24 05:50:00) MPV: 7.7 fL (07/08/24 05:50:00) Neutro Auto: 65.5 % (07/08/24 05:50:00) Lymph Auto: 14.8 % (07/08/24 05:50:00) [place] Auto: 15 % High (07/08/24 05:50:00) Eos Auto: 3.4 % (07/08/24 05:50:00) Basophil Auto: 1.3 % (07/08/24 05:50:00) Neutro Absolute: 5.5 E9/L (07/08/24 05:50:00) Lymph Absolute: 1.2 E9/L (07/08/24 05:50:00) [place] Absolute: 1.3 E9/L High (07/08/24 05:50:00) Eos Absolute: 0.3 E9/L (07/08/24 05:50:00) Basophil Absolute: 0.1 E9/L (07/08/24 05:50:00) PT: 16.6 second(s) High (07/07/24 15:27:00) INR: 1.48 (07/07/24 15:27:00) PTT: 34.9 second(s) (07/07/24 15:27:00) Glucose Lvl: 162 mg/dL (07/08/24 05:50:00) BUN: 26 mg/dL High (07/08/24 05:50:00) Creatinine: 1 mg/dL (07/08/24 05:50:00) eGFR: 60 mL/min/1.73 m2 (07/08/24 05:50:00) BUN/Creat Ratio: 26 High (07/08/24 05:50:00) Sodium Lvl: 135 mmol/L (07/08/24 05:50:00) Potassium Lvl: 4 mmol/L (07/08/24 05:50:00) Chloride: 101 mmol/L (07/08/24 05:50:00) CO2: 28 mmol/L (07/08/24 05:50:00) AGAP: 10 mEq/L (07/08/24 05:50:00) Calcium Lvl: 9.8 mg/dL (07/08/24 05:50:00) Magnesium: 2.2 mg/dL (07/08/24 05:50:00) Troponin HS: 07079.9 pg/mL Critical (07/08/24 05:50:00) BNP: 1610 pg/mL High (07/07/24 15:27:00) Glucose Cap: 172 mg/dL High (07/08/24 11:36:00) POC Device SN: [id number] (07/08/24 11:36:00) POC User ID: [id number] (07/08/24 11:36:00) POC Username: [email or web address] Lyons (07/08/24 11:36:00) Assessment/Plan Atrial fibrillation with controlled ventricular rate Okay to restart home dose of Eliquis 5 mg twice daily from this evening 1. STEMI (ST elevation myocardial infarction) (I21.3: ST elevation (STEMI) myocardial infarction of unspecified site) Aspirin 81 mg a day for 1 month Brilinta 90 mg twice a day for at least 1 year Lipitor 80 mg a day Ezetmibe 10 mg/day 2. Heart failure with reduced ejection fraction (I50.20: Unspecified systolic (congestive) heart failure) Follow up on the echocardiogram results -Start patient on Toprol-XL 12.5 mg/day -If hemodynamics are stable and at baseline okay to give spironolactone 12.5 mg this afternoon. -Will plan to restart dapagliflozin 5 mg/day later this evening is hemodynamics are stable (home dose 10 mg/day) - Hold off on restarting Entresto for today. 3. CAD (coronary artery disease) (I25.10: Atherosclerotic heart disease of [place] coronary artery without angina pectoris) 4. History of DVT in adulthood (Z86.718: Personal history of other venous thrombosis and embolism) 5. HLD (hyperlipidemia) (E78.5: Hyperlipidemia, unspecified) 6. Hypertension (I10: Essential (primary) hypertension) 7. Diabetes (E11.9: Type 2 diabetes mellitus without complications) 8. Chronic GERD (K21.9: Gastro-esophageal reflux disease without esophagitis) 9. KJ on CPAP (G47.33: Obstructive sleep apnea (adult) (pediatric)) 10. Obesity (E66.9: Obesity, unspecified) Orders: acetaminophen, 650 mg = 2 tab(s), Tab, Oral, q6hr PRN Pain 1-3 for 24 hour(s), Stop date 07/08/24 16:54:00 EST, Routine, Start date 07/07/24 16:55:00 EST acetaminophen, 325 mg = 1 tab(s), Tab, Oral, q6hr PRN Pain 1-3 for 24 hour(s), Stop date 07/08/24 16:54:00 EST, Routine, Start date 07/07/24 16:55:00 EST aspirin, 81 mg = 1 tab(s), Tab-Chew, Chewed, Daily, Routine, Start date 07/08/24 9:00:00 EST morphine, 2 mg = 1 mL, Injection, IV Push, q6hr PRN Chest pain for 5 day(s), Stop date 07/12/24 16:54:00 EST, Routine, Start date 07/07/24 16:55:00 EST ticagrelor, 90 mg = 1 tab(s), Tab, Oral, BID, Routine, Start date 07/08/24 21:00:00 EST ticagrelor, 90 mg = 1 tab(s), Tab, Oral, Once, Stop date 07/08/24 6:00:00 EST, Start date 07/08/24 6:00:00 EST Bedrest Cardiac Diet Cardiac Rehab Assessment CBC w/ Indices Circulation Check Communication Order Communication Order Communication Order Communication Order Communication Order Physician to Nursing Communication Order Physician to Nursing Communication Order Physician to Nursing ECG 12 Lead Adult ECG 12 Lead Adult ECG 12 Lead Adult Echo Transthoracic Complete Follow Up Appointment Follow Up Appointment Magnesium Level Notify Provider Notify Provider Notify Provider Notify Provider Vital Signs Oxygen Protocol Patient Education Patient Education Site Check Site Check Site Check Troponin Vital Signs Problem List/Past Medical History Ongoing CAD (coronary artery disease) Chronic GERD Diabetes History of DVT in adulthood HLD (hyperlipidemia) Hypertension Obesity KJ on CPAP Historical Atherosclerotic heart disease of [place] coronary artery without angina pectoris Chronic kidney disease Congestive heart failure Diabetes mellitus GERD-HRQL (Gastroesophageal Reflux Disease-Health Related Quality of Life) questionnaire Gout Hypercholesterolemia Sleep apnea Medications Inpatient acetaminophen 325 mg Tab, 650 mg= 2 tab(s), Oral, q6hr, PRN acetaminophen 325 mg Tab, 325 mg= 1 tab(s), Oral, q6hr, PRN acetaminophen 325 mg Tab, 650 mg= 2 tab(s), Oral, q6hr, PRN aspirin 81 mg Chew Tab, 81 mg= 1 tab(s), Chewed, Daily atorvastatin 40 mg Tab, 80 mg= 2 tab(s), Oral, Bedtime Dextrose 50% Soln-IV, 50 mL, IV Push, Once, PRN ezetimibe 10 mg Tab, 10 mg= 1 tab(s), Oral, Daily HumaLOG Sliding Scale, 0-10 Unit(s), SubCutaneous, QIDACHS hydrALAZINE 20 mg/mL Inj, 10 mg= 0.5 mL, IV Push, q6hr, PRN insulin glargine 100 units/mL SubQ Roxy 10 mL, 30 unit(s)= 0.3 mL, SubCutaneous, Bedtime Metoprolol tartrate 25 mg Tab, 12.5 mg= 0.5 tab(s), Oral, BID morphine 2 mg/mL Inj, 2 mg= 1 mL, IV Push, q4hr, PRN morphine 2 mg/mL Inj, 2 mg= 1 mL, IV Push, q6hr, PRN Pantoprazole [address] Tab, 40 mg= 1 tab(s), Oral, Daily Senokot 8.6 mg Tab, 17.2 mg= 2 tab(s), Oral, BID, PRN ticagrelor 90 mg oral tablet, 90 mg= 1 tab(s), Oral, BID Zofran 4 mg/2 mL Injection, 4 mg= 2 mL, IV Push, q6hr, PRN Home allopurinol 300 mg Tab, 300 mg= 1 tab(s), Oral, Daily amoxicillin 500 mg oral tablet, 500 mg= 1 tab(s), Oral, BID aspirin 81 mg Oral EC Tab, 81 mg= 1 tab(s), Oral, Daily atorvastatin 80 mg Tab, 80 mg= 1 tab(s), Oral, Bedtime baclofen 10 mg Tab, 10 mg= 1 tab(s), Oral, Daily Brilinta (ticagrelor) 90 mg oral tablet, 90 mg= 1 tab(s), Oral, BID calcium (as calcium citrate) 200 mg oral tablet, 950 mg= 1 tab(s), Oral, BID colchicine 0.6 mg Tab, 0.6 mg= 1 tab(s), Oral, Daily dapagliflozin 10 mg oral tablet, 10 mg= 1 tab(s), Oral, Daily Eliquis 5 mg oral tablet, 5 mg= 1 tab(s), Oral, BID Entresto 97 mg-103 mg oral tablet, 1 tab(s), Oral, BID ezetimibe 10 mg Tab, 10 mg= 1 tab(s), Oral, Daily hydrALAZINE 25 mg Tab, 25 mg= 1 tab(s), Oral, BID Insulin Glargine Solostar Pen (concentrated) 300 units/mL subcutaneous solution, 30 unit(s), SubCutaneous, Bedtime Insulin Lispro KwikPen 100 units/mL injectable solution, See Instructions meloxicam 15 mg Tab, 15 mg= 1 tab(s), Oral, Daily metoprolol succinate 50 mg ER Tab, 1.5 tab, Oral, Daily Mucinex 600 mg Tab-ER, 600 mg= 1 tab(s), Oral, BID nitroglycerin 0.3 mg sublingual tablet, 0.3 mg= 1 tab(s), SubLingual, q5min, PRN omeprazole 40 mg Cap-DR, 40 mg= 1 cap(s), Oral, Daily oxyCODONE 5 mg Tab, 5 mg= 1 tab(s), Oral, q6hr, PRN Potassium Chloride (Gxj-Qxou-Fdf M20) 20 mEq oral tablet, extended release, 20 mEq= 1 tab(s), Oral, Daily pregabalin 25 mg Cap, 25 mg= 1 cap(s), Oral, BID spironolactone 25 mg Tab, 25 mg= 1 tab(s), Oral, Daily torsemide 20 mg Tab, 20 mg= 1 tab(s), Oral, Daily Trulicity Pen 3 mg/0.5 mL subcutaneous solution, 1.5 mg, SubCutaneous, qWeek Result Comment: Electronical ly Signed By: Luigi Montana MD\.br\Date and Time Signed: 07/08/24 12:22 EST INTERDISCIPLINARY NOTE - SHIRAZ E CABLEMAN Observed: 07/08/2024 11:59 AM Status: F Source: [facility] Interdisciplinary Note - Shiraz e Supervisor Painting Patient is awake and alert in bed, previously rounded with Dr. Yeh. Patient is from [facility] and plan to returrn at [place]. Pt is aware of plan to move out of ICU today and likely plan to DC back to facility tomorrow. Inpatient status reviewed, Medicare rights reviewed, form signed and original provided . CRM following. PCP verified and insurance information reviewed and DME discussed. Contact information provided and white board updated. Result Comment: Electronical ly Signed By: Andrei ARGUETA, Dulce\.br\Date and Time Signed: 07/08/24 12:00 EST CAPILLARY GLUCOSE POC Collected: 2024 11:36 AM Status: F Source: [facility] TYPE CODE TESTS RESULT OUT OF RANGE REFERENCE UNITS LAB 2340-8(LOINC) GLUCOSE:MCNC: PT:BLD:SEMIQN :TEST STRIP.AUTOMAT ED 172 High 55-99 mg/dL Result Comment: Notified RN/ Performed By: #### [id number] #### [facility] [address] [place] [address] CODING QUERY Observed: 07/08/2024 9:59 AM Status: F Source: [facility] Coding Query From: Lisas Funez RN To: Selvin Yeh DO; Sent: 07/08/2024 09:59:17 EST Subject: Coding Query Due Date/Time: 07/09/2024 09:59:00 EST Caller Name: LAURA LAWSON; Caller Number: H Documentation in the medical record indicates that this patient has been identified to have and/or is being treated for a Pressure (Decubitus) Ulcer/Injury of the following site: Pressure ulcer right/left heels unstageable, bilateral buttocks unstageable The following is also documented in the medical record: Nursing assessment on admission (i-view): Pressure ulcer right/left heels unstageable/necrotic tissue, Pressure ulcer bilateral buttocks unstageable/necrotic tissue Left Right Buttock Heel Based on your medical judgment, can you further clarify the stage of the pressure (decubitus) ulcer, if present, as well as if the ulcer was present on admission? Location (*Required): [___]Pressure Ulcer/Injury Stage I (Nonblanchable erythema of intact skin) Laterality: [___]Right [___]Left [___]N/A [___]Pressure Ulcer/Injury, Unstageable Laterality: [___]Right [___]Left [___]N/A [___]Other: In responding to this request, please exercise your independent professional judgement. The fact that a question is asked does not imply that any particular answer is desired or expected. Thank you![email or web address] [id number] CODING QUERY Observed: 07/08/2024 9:59 AM Status: C Source: [facility] Coding Query From: Lissa Fuenz RN To: Selvin Yeh DO; Sent: 07/08/2024 09:59:17 EST Subject: Coding Query Due Date/Time: 07/09/2024 09:59:00 EST Caller Name: LAURA LAWSON; Caller Number: H Documentation in the medical record indicates that this patient has been identified to have and/or is being treated for a Pressure (Decubitus) Ulcer/Injury of the following site: Pressure ulcer right/left heels unstageable, bilateral buttocks unstageable The following is also documented in the medical record: Nursing assessment on admission (i-view): Pressure ulcer right/left heels unstageable/necrotic tissue, Pressure ulcer bilateral buttocks unstageable/necrotic tissue Left Right Buttock Heel Based on your medical judgment, can you further clarify the stage of the pressure (decubitus) ulcer, if present, as well as if the ulcer was present on admission? Location (*Required): [___]Pressure Ulcer/Injury Stage I (Nonblanchable erythema of intact skin) Laterality: [___]Right [___]Left [___]N/A [___]Pressure Ulcer/Injury, Unstageable Laterality: [___]Right [___]Left [___]N/A [___]Other: In responding to this request, please exercise your independent professional judgement. The fact that a question is asked does not imply that any particular answer is desired or expected. Thank you![email or web address] [id number] pressure ulcer unstageable right and left heel pressure ulcer unstageable bilateral buttock From: Selvin Yeh DO To: Dee Dee RN, Lissa William; Sent: 07/12/2024 11:27:46 EST Subject: RE: Coding Query Caller Name: LAURA LAWSON; Caller Number: Anthony CAPILLARY GLUCOSE POC Collected: 07/08/2024 8:56 AM Status: F Source: [facility] TYPE CODE TESTS RESULT OUT OF RANGE REFERENCE UNITS LAB 2340-8([facility]) GLUCOSE:MCNC: PT:BLD:SEMIQN :TEST STRIP.AUTOMAT ED 125 High 55-99 mg/dL Result Comment: Notified RN/ MD Performed By: #### [id number] #### [facility] [address] [place] [address] PROGRESS NOTE-PHYSICIAN Observed: 2024 8:52 AM Status: F Source: [facility] Progress Note-Physician Assessment/Plan 1. STEMI (ST elevation myocardial infarction) (I21.3: ST elevation (STEMI) myocardial infarction of unspecified site) [facility] 07/07/24 stent mid LAD asa statin brilinta hold AC, restart this evening 12.5 mg metoprolol if pressure can handle Telemetry Cardiology consulted and [facility] High 50 Minutes [id number] 2. Heart failure with reduced ejection fraction (I50.20: Unspecified systolic (congestive) heart failure) EF as low as 20 to 30% Hold Entresto Hold hydralazine Hold Jardiance Hold spironolactone 3. CAD (coronary artery disease) (I25.10: Atherosclerotic heart disease of [place] coronary artery without angina pectoris) Aspirin Statin 4. History of DVT in adulthood (Z86.718: Personal history of other venous thrombosis and embolism) Holding Eliquis at this time due to [facility] Will likely restart Eliquis this evening 5. HLD (hyperlipidemia) (E78.5: Hyperlipidemia, unspecified) statin 6. Hypertension (I10: Essential (primary) hypertension) mild hypotension hold BP meds at this time 7. Diabetes (E11.9: Type 2 diabetes mellitus without complications) Accu-Cheks SSI if needed Appears patient is on 30 units of Lantus daily, will monitor may cut in half 8. Chronic GERD (K21.9: Gastro-esophageal reflux disease without esophagitis) PPI 9. KJ on CPAP (G47.33: Obstructive sleep apnea (adult) (pediatric)) CPAP at night and as needed 10. Obesity (E66.9: Obesity, unspecified) Due to comorbidities patient would benefit from weight loss BMI 37 Orders: acetaminophen, 650 mg = 2 tab(s), Tab, Oral, q6hr PRN Pain, Routine, Start date 07/07/24 16:25:00 EST, 07/07/24 16:25:00 EST atorvastatin, 80 mg = 2 tab(s), Tab, Oral, Bedtime, Routine, Start date 07/07/24 21:00:00 EST, 07/07/24 19:30:00 EST ezetimibe, 10 mg = 1 tab(s), Tab, Oral, Daily, Routine, Start date 07/08/24 9:00:00 EST, 07/07/24 19:30:00 EST glucose, 50 mL, Soln-IV, IV Push, Once PRN Blood glucose, Routine, Start date 07/07/24 19:28:00 EST hydrALAZINE, 10 mg = 0.5 mL, Injection, IV Push, q6hr PRN Other (see comment), Routine, Start date 07/07/24 16:25:00 EST insulin glargine, 30 unit(s) = 0.3 mL, Injection-Insulin, SubCutaneous, Bedtime, Routine, Start date 07/07/24 21:00:00 EST insulin lispro, 0-10 Unit(s), Injection-Insulin, SubCutaneous, QIDACHS, Routine, Start date 07/07/24 21:00:00 EST metoprolol, 12.5 mg = 0.5 tab(s), Tab, Oral, BID, Routine, Start date 07/08/24 9:00:00 EST, 07/08/24 8:51:00 EST morphine, 2 mg = 1 mL, Injection, IV Push, q4hr PRN Pain for 5 day(s), Stop date 07/12/24 16:24:00 EST, Routine, Start date 07/07/24 16:25:00 EST, 07/07/24 16:25:00 EST ondansetron, 4 mg = 2 mL, Injection, IV Push, q6hr PRN Nausea, Routine, Start date 07/07/24 16:25:00 EST, 07/07/24 16:25:00 EST pantoprazole, 40 mg = 1 tab(s), Tab-DR, Oral, Daily, Routine, Start date 07/08/24 9:00:00 EST, 07/07/24 19:30:00 EST senna, 17.2 mg = 2 tab(s), Tab, Oral, BID PRN Other (see comment), Routine, Start date 07/07/24 16:25:00 EST Sodium Chloride 0.9% intravenous solution, 500 mL, Soln-IV, IV, Once, Stop date 07/07/24 18:00:00 EST, Routine, Start date 07/07/24 18:00:00 EST, mL/hr, Infuse over 60, minute(s) Sodium Chloride 0.9% intravenous solution 1,000 mL, 1,000 mL, IV, 50 mL/hr, for 10 hour(s), Stop date 07/08/24 4:38:00 EST, Routine, Start date 07/07/24 18:39:00 EST, 20 hour(s), Total volume (mL): 1,000, 101.6 kg, 2.1, m2 Basic Metabolic Panel Basic Metabolic Panel Below the Knee Intermittent Pneumatic Compression Device Capillary Glucose POC Capillary Glucose POC CBC w/ Auto Diff CBC w/ Auto Diff Change Attending Consult to Cardiology eGFR Hypoglycemia Protocol Responsive Patient Hypoglycemia Protocol Unresponsive Patient Occupational Therapy Evaluate Patient, Develop a Plan of Care and Implement Plan Physical Therapy Evaluate Patient, Develop a Plan of Care and Implement Plan Pulse Oximetry Referral to Resource Center Referral to Resource Center Resuscitation Status - Full Routine Capillary Glucose POC Vital Signs Weight Subjective Patient seen and examined. Patient resting in bed. Afebrile overnight. Patient was having mildly low heart rate less than 60 with soft BPs overnight. Patient denies any chest pain, fever chills, nausea vomiting diarrhea or other symptoms at this time. Objective Vitals & Measurements T: 36.6 ???C(Oral) TMIN: 36.4 ???C(Oral) TMAX: 37.5 ???C(Oral) HR: 66(Monitored) RR: 16 BP: 97/57 BP: 105/42(Line) SpO2: 98% HT: 157.48 cm WT: 91.6 kg Intake & Output This visit (24 hour periods starting at 07:00 EST) 07/08/24 * 07/07/24 07/06/24 Total Summary Intake mL -- 851.24 -- Output mL -- 750 -- Fluid Balance -- 101.24 -- Intake (3) Oral Intake mL -- 50 -- Sodium Chloride 0.9% mL -- 800.44 -- heparin mL -- 0.8 -- Total -- 851.24 -- Output (1) Urine Voided mL -- 750 -- Total -- 750 -- Counts (0) * This column has not completed the indicated time period. Physical Exam General: Obese, NAD Skin: Warm, dry, catheterization site dressing clean dry and intact Head: No trauma, normocephalic Neck: Trachea midline, supple, negative for JVD Eye: Conjunctive are clear, clear sclera , EOMI ENMT: oral mucosa moist, no lesions or edema nose or external ears Cardiovascular: Regular rate and rhythm, S1-S2 present, negative for murmurs rubs or gallops Respiratory: Diminished Chest wall: no deformity. Gastrointestinal: Abdomen soft, bowel sounds present, nontender to palpation Back: No tenderness Extremities: Range of motion intact, no edema Neurological: awake, alert, speech normal, cranial nerves II through XII intact, no sensory defects, alert and oriented x3 Psychiatric: cooperative, affect appropriate for age, pleasant Lab Results WBC: 8.3 E9/L (07/08/24 05:50:00) WBC: 8.3 E9/L (07/08/24 05:50:00) RBC: 3.7 E12/L Low (07/08/24 05:50:00) RBC: 3.7 E12/L Low (07/08/24 05:50:00) HGB: 11.8 gm/dL Low (07/08/24 05:50:00) HGB: 11.8 gm/dL Low (07/08/24 05:50:00) Hct: 35 % (07/08/24 05:50:00) Hct: 35 % (07/08/24 05:50:00) MCV: 94.9 fL (07/08/24 05:50:00) MCV: 94.9 fL (07/08/24 05:50:00) MCH: 31.9 pg (07/08/24 05:50:00) MCH: 31.9 pg (07/08/24 05:50:00) MCHC: 33.7 gm/dL (07/08/24 05:50:00) MCHC: 33.7 gm/dL (07/08/24 05:50:00) RDW: 21.7 % High (07/08/24 05:50:00) RDW: 21.7 % High (07/08/24 05:50:00) Platelet: 269 E9/L (07/08/24 05:50:00) Platelet: 269 E9/L (07/08/24 05:50:00) MPV: 7.7 fL (07/08/24 05:50:00) MPV: 7.7 fL (07/08/24 05:50:00) Neutro Auto: 65.5 % (07/08/24 05:50:00) Lymph Auto: 14.8 % (07/08/24 05:50:00) [place] Auto: 15 % High (07/08/24 05:50:00) Eos Auto: 3.4 % (07/08/24 05:50:00) Basophil Auto: 1.3 % (07/08/24 05:50:00) Neutro Absolute: 5.5 E9/L (07/08/24 05:50:00) Lymph Absolute: 1.2 E9/L (07/08/24 05:50:00) [place] Absolute: 1.3 E9/L High (07/08/24 05:50:00) Eos Absolute: 0.3 E9/L (07/08/24 05:50:00) Basophil Absolute: 0.1 E9/L (07/08/24 05:50:00) PT: 16.6 second(s) High (07/07/24 15:27:00) INR: 1.48 (07/07/24 15:27:00) PTT: 34.9 second(s) (07/07/24 15:27:00) Glucose Lvl: 162 mg/dL (07/08/24 05:50:00) BUN: 26 mg/dL High (07/08/24 05:50:00) Creatinine: 1 mg/dL (07/08/24 05:50:00) eGFR: 60 mL/min/1.73 m2 (07/08/24 05:50:00) BUN/Creat Ratio: 26 High (07/08/24 05:50:00) Sodium Lvl: 135 mmol/L (07/08/24 05:50:00) Potassium Lvl: 4 mmol/L (07/08/24 05:50:00) Chloride: 101 mmol/L (07/08/24 05:50:00) CO2: 28 mmol/L (07/08/24 05:50:00) AGAP: 10 mEq/L (07/08/24 05:50:00) Calcium Lvl: 9.8 mg/dL (07/08/24 05:50:00) Magnesium: 2.2 mg/dL (07/08/24 05:50:00) Troponin HS: 85285.9 pg/mL Critical (07/08/24 05:50:00) BNP: 1610 pg/mL High (07/07/24 15:27:00) Glucose Cap: 146 mg/dL High (07/07/24 20:06:00) POC Device SN: [id number] (07/07/24 20:06:00) POC User ID: [id number] (07/07/24 20:06:00) POC Username: POC Username (07/07/24 20:06:00) Problem List/Past Medical History Ongoing CAD (coronary artery disease) Chronic GERD Diabetes History of DVT in adulthood HLD (hyperlipidemia) Hypertension Obesity KJ on CPAP Historical Atherosclerotic heart disease of [place] coronary artery without angina pectoris Chronic kidney disease Congestive heart failure Diabetes mellitus GERD-HRQL (Gastroesophageal Reflux Disease-Health Related Quality of Life) questionnaire Gout Hypercholesterolemia Sleep apnea Medications Inpatient acetaminophen 325 mg Tab, 650 mg= 2 tab(s), Oral, q6hr, PRN acetaminophen 325 mg Tab, 325 mg= 1 tab(s), Oral, q6hr, PRN acetaminophen 325 mg Tab, 650 mg= 2 tab(s), Oral, q6hr, PRN aspirin 81 mg Chew Tab, 81 mg= 1 tab(s), Chewed, Daily atorvastatin 40 mg Tab, 80 mg= 2 tab(s), Oral, Bedtime Dextrose 50% Soln-IV, 50 mL, IV Push, Once, PRN ezetimibe 10 mg Tab, 10 mg= 1 tab(s), Oral, Daily HumaLOG Sliding Scale, 0-10 Unit(s), SubCutaneous, QIDACHS hydrALAZINE 20 mg/mL Inj, 10 mg= 0.5 mL, IV Push, q6hr, PRN insulin glargine 100 units/mL SubQ Roxy 10 mL, 30 unit(s)= 0.3 mL, SubCutaneous, Bedtime Metoprolol tartrate 25 mg Tab, 12.5 mg= 0.5 tab(s), Oral, BID morphine 2 mg/mL Inj, 2 mg= 1 mL, IV Push, q4hr, PRN morphine 2 mg/mL Inj, 2 mg= 1 mL, IV Push, q6hr, PRN Pantoprazole [address] Tab, 40 mg= 1 tab(s), Oral, Daily Senokot 8.6 mg Tab, 17.2 mg= 2 tab(s), Oral, BID, PRN ticagrelor 90 mg oral tablet, 90 mg= 1 tab(s), Oral, BID Zofran 4 mg/2 mL Injection, 4 mg= 2 mL, IV Push, q6hr, PRN Home allopurinol 300 mg Tab, 300 mg= 1 tab(s), Oral, Daily amoxicillin 500 mg oral tablet, 500 mg= 1 tab(s), Oral, BID aspirin 81 mg Oral EC Tab, 81 mg= 1 tab(s), Oral, Daily atorvastatin 80 mg Tab, 80 mg= 1 tab(s), Oral, Bedtime baclofen 10 mg Tab, 10 mg= 1 tab(s), Oral, Daily Brilinta (ticagrelor) 90 mg oral tablet, 90 mg= 1 tab(s), Oral, BID calcium (as calcium citrate) 200 mg oral tablet, 950 mg= 1 tab(s), Oral, BID colchicine 0.6 mg Tab, 0.6 mg= 1 tab(s), Oral, Daily dapagliflozin 10 mg oral tablet, 10 mg= 1 tab(s), Oral, Daily Eliquis 5 mg oral tablet, 5 mg= 1 tab(s), Oral, BID Entresto 97 mg-103 mg oral tablet, 1 tab(s), Oral, BID ezetimibe 10 mg Tab, 10 mg= 1 tab(s), Oral, Daily hydrALAZINE 25 mg Tab, 25 mg= 1 tab(s), Oral, BID Insulin Glargine Solostar Pen (concentrated) 300 units/mL subcutaneous solution, 30 unit(s), SubCutaneous, Bedtime Insulin Lispro KwikPen 100 units/mL injectable solution, See Instructions meloxicam 15 mg Tab, 15 mg= 1 tab(s), Oral, Daily metoprolol succinate 50 mg ER Tab, 1.5 tab, Oral, Daily Mucinex 600 mg Tab-ER, 600 mg= 1 tab(s), Oral, BID nitroglycerin 0.3 mg sublingual tablet, 0.3 mg= 1 tab(s), SubLingual, q5min, PRN omeprazole 40 mg Cap-DR, 40 mg= 1 cap(s), Oral, Daily oxyCODONE 5 mg Tab, 5 mg= 1 tab(s), Oral, q6hr, PRN Potassium Chloride (Dau-Gzvu-Jqs M20) 20 mEq oral tablet, extended release, 20 mEq= 1 tab(s), Oral, Daily pregabalin 25 mg Cap, 25 mg= 1 cap(s), Oral, BID spironolactone 25 mg Tab, 25 mg= 1 tab(s), Oral, Daily torsemide 20 mg Tab, 20 mg= 1 tab(s), Oral, Daily Trulicity Pen 3 mg/0.5 mL subcutaneous solution, 1.5 mg, SubCutaneous, qWeek Result Comment: Electronical ly Signed By: Selvin Yeh DO.br\Date and Time Signed: 07/08/24 08:52 EST CBC W/INDICES Collected: 07/08/2024 5:50 AM Status: F Source: [facility] TYPE CODE TESTS RESULT OUT OF RANGE REFERENCE UNITS LAB 39644-3(LOINC) LEUKOCYTES^^RODOLFO ECTED FOR NUCLEATED ERYTHROCYTES:NCN C:PT:BLD:QN:AUTO MATED COUNT 8.3 Normal 4.0-11.0 E9/L LAB 789-8(LOINC) ERYTHROCYTES:NCN C:PT:BLD:QN:AUTO MATED COUNT 3.7 Low 4.3-5.9 E12/L LAB 718-7([facility]) HEMOGLOBIN:MCNC: PT:BLD:QN: 11.8 Low 12.0-16.0 gm/dL LAB 4544-3([facility]) HEMATOCRIT:VFR:P T:BLD:QN:AUTOMAT ED COUNT 35.0 Normal 34.0-46.0 % LAB 788-0([facility]) ERYTHROCYTE DISTRIBUTION WIDTH:RATIO:PT:R BC:QN:AUTOMATED COUNT 21.7 High 10.9-14.2 % LAB 785-6([facility]) ERYTHROCYTE MEAN CORPUSCULAR HEMOGLOBIN:ENTMA SS:PT:RBC:QN:AUT OMATED COUNT 31.9 Normal 27.0-34.0 pg LAB 786-4([facility]) ERYTHROCYTE MEAN CORPUSCULAR HEMOGLOBIN CONCENTRATION:MC NC:PT:RBC:QN:AUT OMATED COUNT 33.7 Normal 31.4-36.0 gm/dL LAB 787-2([facility]) ERYTHROCYTE MEAN CORPUSCULAR VOLUME:ENTVOL:PT :RBC:QN:AUTOMATE D COUNT 94.9 Normal 80.0-100.0 fL LAB 47491-7([facility]) PLATELET MEAN VOLUME:ENTVOL:PT :BLD:QN:AUTOMATE D COUNT 7.7 Normal 6.4-10.8 fL LAB 25441846([facility]) Platelet 269.0 Normal 150.0-500.0 E9/ L Performed By: #### [id number] # ### [facility] [address] [place] [address] EGFR Collected: 5:50 AM Status: F Source: [facility] TYPE CODE TESTS RESULT OUT OF RANGE REFERENCE UNITS LAB 11201223([facility]) eGFR 60 Normal >=59 mL/min/1 .7 3 m2 Performed By: #### [id number] #### [facility] [address] [place] [address] MAGNESIUM Collected: 07/08/2024 5:50 AM Status: F Source: [facility] TYPE CODE TESTS RESULT OUT OF RANGE REFERENCE UNITS LAB 45122-5([facility]) MAGNESIUM:MCN C:PT:SER/PLAS :QN: 2.2 Normal 1.3-2.4 mg/dL Performed By: #### [id number] ### [facility] [address] [place] [address] BMP Collected: 5:50 AM Status: F Source: [facility] TYPE CODE TESTS RESULT OUT OF RANGE REFERENCE UNITS LAB 2345-7([facility]) GLUCOSE:MCNC :PT:SER/PLAS :QN: 162 Normal 55-199 mg/dL LAB 3094-0([facility]) UREA NITROGEN:MCN C:PT:SER/REMEDIOS S:QN: 26 High 5-21 mg/dL LAB 2160-0([facility]) CREATININE:M CNC:PT:SER/P LAS:QN: 1.0 Normal 0.5-1.3 mg/dL LAB 3097-3([facility]) UREA NITROGEN/CRE ATININE:MRTO :PT:SER/PLAS :QN: 26 High 10-20 No Units LAB 67885-2([facility]) CALCIUM:MCNC :PT:SER/PLAS :QN: 9.8 Normal 8.9-11.1 mg/dL LAB 2951-2([facility]) SODIUM:SCNC: PT:SER/PLAS: QN: 135 Normal 135-145 mmol/L LAB 2823-3([facility]) POTASSIUM:SC NC:PT:SER/PL :QN: 4.0 Normal 3.5-5.3 mmol/L LAB 2075-0([facility]) CHLORIDE:SCN C:PT:SER/REMEDIOS S:QN: 101 Normal 101-111 mmol/L LAB 2028-9([facility]) CARBON DIOXIDE:SCNC :PT:SER/PLAS :QN: 28 Normal 21-31 mmol/L LAB 12681-4([facility]) ANION GAP:SCNC:PT: SER/PLAS:QN: 10 Normal 6-16 mEq/L Performed By: #### [id number] # ### [facility] [address] [place] [address] CBC W/ AUTO DIFF Collected: 07/08/2024 5:50 AM Statu s: F Source: [facility] TYPE CODE TESTS RESULT OUT OF RANGE REFERENCE UNITS LAB 34907-6([facility]) LEUKOCYTES^^RODOLFO ECTED FOR NUCLEATED ERYTHROCYTES:NCN C:PT:BLD:QN:AUTO MATED COUNT 8.3 Normal 4.0-11.0 E9/L LAB 789-8([facility]) ERYTHROCYTES:NCN C:PT:BLD:QN:AUTO MATED COUNT 3.7 Low 4.3-5.9 E12/L LAB 718-7([facility]) HEMOGLOBIN:MCNC: PT:BLD:QN: 11.8 Low 12.0-16.0 gm/dL LAB 4544-3([facility]) HEMATOCRIT:VFR:P T:BLD:QN:AUTOMAT ED COUNT 35.0 Normal 34.0-46.0 % LAB 788-0([facility]) ERYTHROCYTE DISTRIBUTION WIDTH:RATIO:PT:R BC:QN:AUTOMATED COUNT 21.7 High 10.9-14.2 % LAB 785-6([facility]) ERYTHROCYTE MEAN CORPUSCULAR HEMOGLOBIN:ENTMA SS:PT:RBC:QN:AUT OMATED COUNT 31.9 Normal 27.0-34.0 pg LAB 786-4([facility]) ERYTHROCYTE MEAN CORPUSCULAR HEMOGLOBIN CONCENTRATION:MC NC:PT:RBC:QN:AUT OMATED COUNT 33.7 Normal 31.4-36.0 gm/dL LAB 787-2([facility]) ERYTHROCYTE MEAN CORPUSCULAR VOLUME:ENTVOL:PT :RBC:QN:AUTOMATE D COUNT 94.9 Normal 80.0-100.0 fL LAB 49649-8([facility]) PLATELET MEAN VOLUME:ENTVOL:PT :BLD:QN:AUTOMATE D COUNT 7.7 Normal 6.4-10.8 fL LAB 35612166([facility]) Platelet 269.0 Normal 150.0-500.0 E9/ L LAB 35036-1([facility]) NEUTROPHILS/100 LEUKOCYTES:NFR:P T:BLD:QN: 65.5 Normal 36.0-75.0 % LAB 731-0([facility]) LYMPHOCYTES:NCNC :PT:BLD:QN:AUTOM ATED COUNT 14.8 Normal 14.0-50.0 % LAB 742-7([facility]) MONOCYTES:NCNC:P T:BLD:QN:AUTOMAT ED COUNT 1.3 High 0.2-1.0 E9/L LAB 713-8(LOINC) EOSINOPHILS/100 LEUKOCYTES:NFR:P T:BLD:QN:AUTOMAT ED COUNT 3.4 Normal 0.0-8.0 % LAB 704-7(LOINC) BASOPHILS:NCNC:P T:BLD:QN:AUTOMAT ED COUNT 1.3 Normal 0.0-2.0 % LAB 751-8(LOINC) NEUTROPHILS:NCNC :PT:BLD:QN:AUTOM ATED COUNT 5.5 Normal 2.0-7.5 E9/L LAB 46665-9([facility]) LYMPHOCYTES:NCNC :PT:BLD:QN: 1.2 Normal 1.0-4.0 E9/L LAB 99511-9([facility]) EOSINOPHILS:NCNC :PT:BLD:QN: 0.3 Normal 0.0-0.5 E9/L LAB 89780-8([facility]) BASOPHILS/LEUKOC YTES:NFR.DF:PT:B LD:QN:AUTOMATED COUNT 0.1 Normal 0.0-0.2 E9/L Performed By: #### [id number] # ### [facility] [address] [place] [address] TROPONIN Collected: 5 5:50 AM Status: F Source: [facility] TYPE CODE TESTS RESULT OUT OF RANGE REFERENCE UNITS LAB [id number]([facility]) [place] [address].90 Abnormal 10.10-27.1 0 pg/mL Result Comment: Critical Res ult Verified by Repeat Analysis Critical Result I_TnIHS:50695.9 Called to and read back by: ROGELIO NORRIS at: 07/08/2024 07:01:01 by:[email or web address] The 95% CI (Confidence Interval) PPV (Positive Predictive Value) for myocardial infarction in females is 38 pg/mL, in males 51 pg/mL. The results should be used in conjunction with clinical conditions of myocardial infarction. (Access High Sensitivity Troponin I Instructions For Use, [employer], January 2018) Performed By: #### [id number] # ### [facility] [address] [place] [address] TROPONIN 6 HR. Collected: 5 8:28 PM Status: F Source: [facility] TYPE CODE TESTS RESULT OUT OF RANGE REFERENCE UNITS LAB [id number](LOINC) Troponin HS 9143.50 Abnormal 10.10-27.10 pg/mL Result Comment: Critical Res ult I_TnIHS:9143.5 Called to and read back by: MARSHALL WOODSON at: 07/07/2024 21:12:15 by:[email or web address] Critical Result Verified by Previous Result The 95% CI (Confidence Interval) PPV (Positive Predictive Value) for myocardial infarction in females is 38 pg/mL, in males 51 pg/mL. The results should be used in conjunction with clinical conditions of myocardial infarction. (Access High Sensitivity Troponin I Instructions For Use, [employer]andeep [employer], January 2018) Performed By: #### [id number] #### [facility] [address] [place] [address] CAPILLARY GLUCOSE POC Collected: 07/07/2024 8:06 PM Status: F Source: [facility] TYPE CODE TESTS RESULT OUT OF RANGE REFERENCE UNITS LAB 2340-8(LOINC) GLUCOSE:MCNC: PT:BLD:SEMIQN :TEST STRIP.AUTOMAT ED 146 High 55-99 mg/dL Result Comment: Notified RN/ MD Performed By: #### [id number] #### [facility] [address] [place] [address] HISTORY AND PHYSICAL Observed: 7:29 PM Status: F Source: [facility] History and Physical Basic Information Admit Date/Time:07/07/2024 15:49 Chief Complaint Chest pain radiating on the left arm History of Present Illness 73-year-old female with past medical history of CAD status post multiple PCI's, heart failure reduced ejection fraction, CKD, diabetes, GERD, HLD, presented to ER due to chest pain Starting around 1315-day of admission. Patient stated pain was radiating to left arm. Patient is from facility and they gave her 3 aspirin and 3 nitro. Patient did have low blood pressure of first 57/33. ER patient's blood pressure was 81/49. EKG consistent with STEMI. Code STEMI was called. Cardiology saw patient in ED and patient refused to have heart cath done at [facility] at first despite cardiology as well as ED physician strongly encouraging her to do so. Then arrangements were made for patient be transferred to [place] however once patient hurts she would be flying in a helicopter she said she did not realize it was that serious and agreed to have it done here. Patient was taken to [facility] stent placed mid LAD. Patient was then transferred to ICU. 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 Discussed CODE STATUS with patient who states she would like to be full code. 2013 multiple stents and not candidate for bypass at that time. coronary artery disease status post PCI with drug-eluting stent to LAD x 2 and right coronary artery done on 10/09/2023. 04/19/24 She was s noted to have high-grade calcific stenosis at the ostium of the LAD and high-grade stenosis in the right coronary artery as well at the time because of high risk she should underwent heart cath with Impella assist her pain was ongoing and continued so she was started on IV heparin and IV nitro patient history of heart failure with reduced ejection fraction with last echo October 2023 showing left ventricular ejection fraction of 40 to 45% Review of Systems Scoring Avendaño Fall Risk Score: 85 High (07/07/24) Physical Exam Vitals & Measurements T: 36.8 ???C(Oral) TMIN: 36.8 ???C(Oral) TMAX: 37.5 ???C(Oral) HR: 60(Monitored) RR: 8 BP: 91/55 BP: 97/43(Line) SpO2: 97% HT: 157.48 cm WT: 93.8 kg General: Obese, NAD Skin: Warm, dry, catheterization site dressing clean dry and intact Head: No trauma, normocephalic Neck: Trachea midline, supple, negative for JVD Eye: Conjunctive are clear, clear sclera , EOMI ENMT: oral mucosa moist, no lesions or edema nose or external ears Cardiovascular: Regular rate and rhythm, S1-S2 present, negative for murmurs rubs or gallops Respiratory: Diminished Chest wall: no deformity. Gastrointestinal: Abdomen soft, bowel sounds present, nontender to palpation Back: No tenderness Extremities: Range of motion intact, no edema Neurological: awake, alert, speech normal, cranial nerves II through XII intact, no sensory defects, alert and oriented x3 Psychiatric: cooperative, affect appropriate for age, pleasant Lab Results WBC: 8.7 E9/L (07/07/24 15:27:00) RBC: 4 E12/L Low (07/07/24 15:27:00) HGB: 12.4 gm/dL (07/07/24 15:27:00) Hct: 37.5 % (07/07/24 15:27:00) MCV: 95 fL (07/07/24 15:27:00) MCH: 31.3 pg (07/07/24 15::00) MCHC: 33 gm/dL (07/07/24 15:27:00) RDW: 21.7 % High (07/07/24 15:27:00) Platelet: 233 E9/L (07/07/24 15::00) MPV: 7.8 fL (07/07/24 15::00) Neutro Auto: 62.6 % (07/07/24 15:27:00) Lymph Auto: 16.5 % (07/07/24 15:27:00) [place] Auto: 15 % High (07/07/24 15:27:00) Eos Auto: 4.7 % (07/07/24 15:27:00) Basophil Auto: 1.2 % (07/07/24 15:27:00) Neutro Absolute: 5.5 E9/L (07/07/24 15:27:00) Lymph Absolute: 1.4 E9/L (07/07/24 15:27:00) [place] Absolute: 1.3 E9/L High (07/07/24 15:27:00) Eos Absolute: 0.4 E9/L (07/07/24 15:27:00) Basophil Absolute: 0.1 E9/L (07/07/24 15:27:00) PT: 16.6 second(s) High (07/07/24 15:27:00) INR: 1.48 (07/07/24 15:27:00) PTT: 34.9 second(s) (07/07/24 15:27:00) Glucose Lvl: 197 mg/dL (07/07/24 15:27:00) BUN: 28 mg/dL High (07/07/24 15:27:00) Creatinine: 1 mg/dL (07/07/24:) eGFR: 60 mL/min/1.73 m2 (07/07/24::00) BUN/Creat Ratio: 28 High (07/07/24::) Sodium Lvl: 134 mmol/L Low (07/07/24::00) Potassium Lvl: 4.2 mmol/L (07/07/24::00) Chloride: 99 mmol/L Low (07/07/24::) CO2: 25 mmol/L (07/07/24::) AGAP: 14 mEq/L (07/07/24:) Calcium Lvl: 10.1 mg/dL (07/07/24) Magnesium: 2.1 mg/dL (07/07/24::) Troponin HS: 2724.8 pg/mL Critical (07/07/24::) BNP: 1610 pg/mL High (07/07/24::) Glucose Cap: 148 mg/dL High (07/07/24 17:21:00) POC Device SN: [id number] (07/07/24 17:21:00) POC User ID: [id number] (07/07/24 17::00) POC Username: POC Username (07/07/24 17::00) Assessment/Plan Patient will be admitted under inpatient status due to estimated length of stay greater than 2 midnights. All images, labs, EKGs were reviewed DVT PPx???PAS bilaterally Diet???cardiac CODE STATUS???full code 1. STEMI (ST elevation myocardial infarction) (I21.3: ST elevation (STEMI) myocardial infarction of unspecified site) [facility] 07/07/24 stent mid LAD asa statin brilinta hold AC 12.5 mg metoprolol if pressure can handle Telemetry Cardiology consulted and following Ordered: Initial Hospital Care/Day High 75 Minutes 76203 2. Heart failure with reduced ejection fraction (I50.20: Unspecified systolic (congestive) heart failure) EF as low as 20 to 30% Hold Entresto Hold hydralazine Hold Jardiance Hold spironolactone 3. CAD (coronary artery disease) (I25.10: Atherosclerotic heart disease of [place] coronary artery without angina pectoris) Aspirin Statin 4. HLD (hyperlipidemia) (E78.5: Hyperlipidemia, unspecified) Statin 5. Hypertension (I10: Essential (primary) hypertension) Monitor Holding BP meds due to soft BP after cath Blood pressure goal MAP above 55-60 6. Diabetes (E11.9: Type 2 diabetes mellitus without complications) Accu-Cheks, SSI if needed 7. Chronic GERD (K21.9: Gastro-esophageal reflux disease without esophagitis) PPI 8. Obesity (E66.9: Obesity, unspecified) Due to comorbidities patient would benefit from weight loss BMI 37 Orders: acetaminophen, 650 mg = 2 tab(s), Tab, Oral, q6hr PRN Pain, Routine, Start date 07/07/24 16:25:00 EST, 07/07/24 16:25:00 EST glucose, 50 mL, Soln-IV, IV Push, Once PRN Blood glucose, Routine, Start date 07/07/24 19:28:00 EST hydrALAZINE, 10 mg = 0.5 mL, Injection, IV Push, q6hr PRN Other (see comment), Routine, Start date 07/07/24 16:25:00 EST insulin lispro, 0-10 Unit(s), Injection-Insulin, SubCutaneous, QIDACHS, Routine, Start date 07/07/24 21:00:00 EST morphine, 2 mg = 1 mL, Injection, IV Push, q4hr PRN Pain for 5 day(s), Stop date 07/12/24 16:24:00 EST, Routine, Start date 07/07/24 16:25:00 EST, 07/07/24 16:25:00 EST ondansetron, 4 mg = 2 mL, Injection, IV Push, q6hr PRN Nausea, Routine, Start date 07/07/24 16:25:00 EST, 07/07/24 16:25:00 EST senna, 17.2 mg = 2 tab(s), Tab, Oral, BID PRN Other (see comment), Routine, Start date 07/07/24 16:25:00 EST Sodium Chloride 0.9% intravenous solution, 500 mL, Soln-IV, IV, Once, Stop date 07/07/24 18:00:00 EST, Routine, Start date 07/07/24 18:00:00 EST, mL/hr, Infuse over 60, minute(s) Sodium Chloride 0.9% intravenous solution 1,000 mL, 1,000 mL, IV, 50 mL/hr, for 10 hour(s), Stop date 07/08/24 4:38:00 EST, Routine, Start date 07/07/24 18:39:00 EST, 20 hour(s), Total volume (mL): 1,000, 101.6 kg, 2.1, m2 Basic Metabolic Panel Below the Knee Intermittent Pneumatic Compression Device Capillary Glucose POC CBC w/ Auto Diff Change Attending Consult to Cardiology Hypoglycemia Protocol Responsive Patient Hypoglycemia Protocol Unresponsive Patient Occupational Therapy Evaluate Patient, Develop a Plan of Care and Implement Plan Physical Therapy Evaluate Patient, Develop a Plan of Care and Implement Plan Pulse Oximetry Resuscitation Status - Full Routine Capillary Glucose POC Vital Signs Weight Problem List/Past Medical History Ongoing CAD (coronary artery disease) Chronic GERD Diabetes HLD (hyperlipidemia) Hypertension Obesity Historical Atherosclerotic heart disease of [place] coronary artery without angina pectoris Chronic kidney disease Congestive heart failure Diabetes mellitus GERD-HRQL (Gastroesophageal Reflux Disease-Health Related Quality of Life) questionnaire Gout Hypercholesterolemia Sleep apnea Procedure/Surgical History Arterial stent (07/07/2024), Cardiac catheterization, left heart (07/07/2024), Cardiac catheterization, left heart (07/07/2024), PCI (percutaneous coronary intervention) of left anterior descending branch of coronary artery (07/07/2024). Medications Inpatient acetaminophen 325 mg Tab, 650 mg= 2 tab(s), Oral, q6hr, PRN acetaminophen 325 mg Tab, 325 mg= 1 tab(s), Oral, q6hr, PRN acetaminophen 325 mg Tab, 650 mg= 2 tab(s), Oral, q6hr, PRN aspirin 81 mg Chew Tab, 81 mg= 1 tab(s), Chewed, Daily Dextrose 50% Soln-IV, 50 mL, IV Push, Once, PRN heparin additive 25,000 unit(s) [9.842 unit/kg/hr] + Premix Dextrose 5% Diluent 500 mL HumaLOG Sliding Scale, 0-10 Unit(s), SubCutaneous, QIDACHS hydrALAZINE 20 mg/mL Inj, 10 mg= 0.5 mL, IV Push, q6hr, PRN morphine 2 mg/mL Inj, 2 mg= 1 mL, IV Push, q4hr, PRN morphine 2 mg/mL Inj, 2 mg= 1 mL, IV Push, q6hr, PRN NS 1000 mL Soln-IV 1,000 mL, 1000 mL, IV Senokot 8.6 mg Tab, 17.2 mg= 2 tab(s), Oral, BID, PRN Sodium Chloride 0.9% IV Roxy 1000 mL 1,000 mL, 1000 mL, IV ticagrelor, 90 mg= 1 tab(s), Oral, Once ticagrelor 90 mg oral tablet, 90 mg= 1 tab(s), Oral, BID Zofran 4 mg/2 mL Injection, 4 mg= 2 mL, IV Push, q6hr, PRN Home allopurinol 300 mg Tab, 300 mg= 1 tab(s), Oral, Daily amoxicillin 500 mg oral tablet, 500 mg= 1 tab(s), Oral, BID aspirin 81 mg Oral EC Tab, 81 mg= 1 tab(s), Oral, Daily atorvastatin 80 mg Tab, 80 mg= 1 tab(s), Oral, Bedtime baclofen 10 mg Tab, 10 mg= 1 tab(s), Oral, Daily Brilinta (ticagrelor) 90 mg oral tablet, 90 mg= 1 tab(s), Oral, BID calcium (as calcium citrate) 200 mg oral tablet, 950 mg= 1 tab(s), Oral, BID colchicine 0.6 mg Tab, 0.6 mg= 1 tab(s), Oral, Daily dapagliflozin 10 mg oral tablet, 10 mg= 1 tab(s), Oral, Daily Eliquis 5 mg oral tablet, 5 mg= 1 tab(s), Oral, BID Entresto 97 mg-103 mg oral tablet, 1 tab(s), Oral, BID ezetimibe 10 mg Tab, 10 mg= 1 tab(s), Oral, Daily hydrALAZINE 25 mg Tab, 25 mg= 1 tab(s), Oral, BID Insulin Glargine Solostar Pen (concentrated) 300 units/mL subcutaneous solution, 30 unit(s), SubCutaneous, Bedtime Insulin Lispro KwikPen 100 units/mL injectable solution, See Instructions meloxicam 15 mg Tab, 15 mg= 1 tab(s), Oral, Daily metoprolol succinate 50 mg ER Tab, 1.5 tab, Oral, Daily Mucinex 600 mg Tab-ER, 600 mg= 1 tab(s), Oral, BID nitroglycerin 0.3 mg sublingual tablet, 0.3 mg= 1 tab(s), SubLingual, q5min, PRN omeprazole 40 mg Cap-DR, 40 mg= 1 cap(s), Oral, Daily oxyCODONE 5 mg Tab, 5 mg= 1 tab(s), Oral, q6hr, PRN Potassium Chloride (Wds-Wwzb-Nfs M20) 20 mEq oral tablet, extended release, 20 mEq= 1 tab(s), Oral, Daily pregabalin 25 mg Cap, 25 mg= 1 cap(s), Oral, BID spironolactone 25 mg Tab, 25 mg= 1 tab(s), Oral, Daily torsemide 20 mg Tab, 20 mg= 1 tab(s), Oral, Daily Trulicity Pen 3 mg/0.5 mL subcutaneous solution, 1.5 mg, SubCutaneous, qWeek Allergies No Known Allergies Social History Alcohol - Denies Alcohol Use, 07/07/2024 Substance Abuse - Denies Substance Abuse, 07/07/2024 Tobacco - Denies Tobacco Use, 07/07/2024 Never (less than 100 in lifetime) Tobacco Use:., 07/07/2024 Family History Diabetes mellitus type 2: Father. Heart attack: Father. Primary malignant neoplasm of skin: Mother. Result Comment: Electronical ly Signed By: Selvin Yeh DO\.br\Date and Time Signed: 07/07/24 19:29 EST TROPONIN 3 HR. Collected: 5 6:50 PM Status: F Source: [facility] TYPE CODE TESTS RESULT OUT OF RANGE REFERENCE UNITS LAB 85169821(INC) Troponin HS 8093.50 Abnormal 10.10-27.10 pg/mL Result Comment: Critical Res ult Verified by Previous Result Critical Result I_TnIHS:8093.5 Called to and read back by: STEVE DUARTE at: 07/07/2024 19:32:50 by:[id number] The 95% CI (Confidence Interval) PPV (Positive Predictive Value) for myocardial infarction in females is 38 pg/mL, in males 51 pg/mL. The results should be used in conjunction with clinical conditions of myocardial infarction. (Access High Sensitivity Troponin I Instructions For Use, Ramandeep Fabiola, January 2018) Performed By: #### [id number] #### [facility] [address] [place] [address] XR CHEST SINGLE VIEW Observed: 6:02 PM Status: F Source: [facility] Exam Date/Time: 07/07/2024 18:15 EST Reason for Exam: Chest pain Report IMPRESSION: Possible left pleural effusion. EXAMINATION/TECHNIQUE: XR Chest Single View HISTORY: Recent heart catheterization. Chest pain. COMPARISON: None RESULT: Possible small left pleural effusion versus prominent pericardial fat pad. No distinct focal consolidation. No right pleural effusion. No pneumothorax. Enlarged cardiomediastinal silhouette, accentuated by technique. Coronary stent or stents. No acute osseous findings. Degenerative changes. Surgical clips lower neck. Ordering Provider: Markos Moreno FINAL REPORT Dictated: 07/08/2024 8:03 am Vlad Foster MD Signed (Electronic Signature): 07/08/2024 8:03 am Signed by: Vlad Foster MD Transcribed by: MICHELLE Technologist: FARIBA CONSULTATION NOTE Observed: 07/07/2024 5:24 PM Status: F Source: [facility] Consultation Note Chief Complaint chest pain that began around 1315 today. deneis shortenss of breath, cough, fevers/chills History of Present Illness Reason for consult-abnormal EKG and chest pain History of presenting illness-patient is a pleasant 73-year-old lady with known history of CAD status post multiple PCI's, reported history of cardiomyopathy who developed severe sudden onset substernal chest pain this afternoon radiating into the left arm. And route patient received 3 sublingual nitros with which patient's pain resolved. At the time of arrival to the ER patient's systolic blood pressures were in 70 to 80 mmHg range. Patient was chest pain-free. EKG was concerning for anterolateral injury pattern with ST elevation most prominent in leads V5 and V6. Initially patient refused cardiac catheterization and wanted to be transferred to [facility] in [place]. Later on patient requested to proceed with the procedure at [facility]. I explained and reviewed the risks and benefits of proceeding with the cardiac catheterization and emergent PCI as needed in detail with the patient and her friend who was at bedside. Patient and her friend agreed to proceed with the planned procedure. Urgent left heart cath showed a severe stenotic lesion of mid LAD for which a 3 x 18 mm Xience jazzmine point drug-eluting stent was deployed. In addition patient has severe diffuse disease of apical LAD, severe diffuse disease of distal circumflex with occluded OM 3 and LPL mid to distal left circumflex with occluded OM 3 and left posterolateral branch (with left to left and right to left collaterals). RCA has patent stents with mild to moderate ISR in distal segment. Physical Exam Vitals & Measurements T: 37.5 ???C(Oral) HR: 74(Monitored) RR: 18 BP: 84/52 SpO2: 98% HT: 157 cm WT: 101.6 kg HEENT- no pallor,no icterus, no cyanosis Neck- no JVD, no bruit Chest- bilateral clear breath sounds, no rhonchi or crackles CVS- S1S2 soft Extremities- no ankle edema Neuro- alert, oriented x 3 Assessment/Plan 1. STEMI (ST elevation myocardial infarction) (I21.3: ST elevation (STEMI) myocardial infarction of unspecified site) Status post PCI to LAD (Culprit vessel) Aspirin 81 mg a day for 1 month Brilinta 90 mg twice a day for at least 1 year (patient received additional 180 mg dose during the heart cath procedure) Eliquis 5 mg twice daily from tomorrow Lipitor 80 mg a day Continue medical management and risk factor modification for residual CAD Continue GDMT for severe LV systolic dysfunction Post procedure: Sheath pull once ACT is less than 180 seconds Bedrest for 6 hours post sheath pull Normal saline at 50 cc an hour for 1 L Echocardiogram Hold home doses of Entresto, Jardiance and spironolactone and hydralazine Orders: acetaminophen, 650 mg = 2 tab(s), Tab, Oral, q6hr PRN Pain 1-3 for 24 hour(s), Stop date 07/08/24 16:54:00 EST, Routine, Start date 07/07/24 16:55:00 EST acetaminophen, 325 mg = 1 tab(s), Tab, Oral, q6hr PRN Pain 1-3 for 24 hour(s), Stop date 07/08/24 16:54:00 EST, Routine, Start date 07/07/24 16:55:00 EST aspirin, 81 mg = 1 tab(s), Tab-Chew, Chewed, Daily, Routine, Start date 07/08/24 9:00:00 EST morphine, 2 mg = 1 mL, Injection, IV Push, q6hr PRN Chest pain for 5 day(s), Stop date 07/12/24 16:54:00 EST, Routine, Start date 07/07/24 16:55:00 EST ticagrelor, 90 mg = 1 tab(s), Tab, Oral, BID, Routine, Start date 07/08/24 21:00:00 EST ticagrelor, 90 mg = 1 tab(s), Tab, Oral, Once, Stop date 07/08/24 6:00:00 EST, Start date 07/08/24 6:00:00 EST Basic Metabolic Panel Bedrest Cardiac Diet Cardiac Rehab Assessment CBC w/ Indices Circulation Check Communication Order Communication Order Communication Order Communication Order Communication Order Physician to Nursing Communication Order Physician to Nursing Communication Order Physician to Nursing ECG 12 Lead Adult ECG 12 Lead Adult Echo Transthoracic Complete Follow Up Appointment Follow Up Appointment Magnesium Level Notify Provider Notify Provider Notify Provider Notify Provider Vital Signs Oxygen Protocol Patient Education Patient Education Site Check Site Check Site Check Troponin Vital Signs Problem List/Past Medical History Ongoing No qualifying data Historical Atherosclerotic heart disease of [place] coronary artery without angina pectoris Chronic kidney disease Congestive heart failure Diabetes mellitus GERD-HRQL (Gastroesophageal Reflux Disease-Health Related Quality of Life) questionnaire Gout Hypercholesterolemia Sleep apnea Procedure/Surgical History Arterial stent (07/07/2024), Cardiac catheterization, left heart (07/07/2024), Cardiac catheterization, left heart (07/07/2024), PCI (percutaneous coronary intervention) of left anterior descending branch of coronary artery (07/07/2024). Medications Inpatient acetaminophen 325 mg Tab, 650 mg= 2 tab(s), Oral, q6hr, PRN acetaminophen 325 mg Tab, 325 mg= 1 tab(s), Oral, q6hr, PRN acetaminophen 325 mg Tab, 650 mg= 2 tab(s), Oral, q6hr, PRN aspirin 81 mg Chew Tab, 81 mg= 1 tab(s), Chewed, Daily heparin additive 25,000 unit(s) [9.842 unit/kg/hr] + Premix Dextrose 5% Diluent 500 mL hydrALAZINE 20 mg/mL Inj, 10 mg= 0.5 mL, IV Push, q6hr, PRN morphine 2 mg/mL Inj, 2 mg= 1 mL, IV Push, q4hr, PRN morphine 2 mg/mL Inj, 2 mg= 1 mL, IV Push, q6hr, PRN NS 500 ml Bolus, 500 mL, IV, Once Senokot 8.6 mg Tab, 17.2 mg= 2 tab(s), Oral, BID, PRN Sodium Chloride 0.9% IV Roxy 1000 mL 1,000 mL, 1000 mL, IV ticagrelor, 90 mg= 1 tab(s), Oral, Once ticagrelor 90 mg oral tablet, 90 mg= 1 tab(s), Oral, BID Zofran 4 mg/2 mL Injection, 4 mg= 2 mL, IV Push, q6hr, PRN Home No active home medications Allergies No Known Allergies Social History Alcohol - Denies Alcohol Use, 07/07/2024 Substance Abuse - Denies Substance Abuse, 07/07/2024 Tobacco - Denies Tobacco Use, 07/07/2024 Result Comment: Electronical ly Signed By: Nan BREWER, Luigi\.br\Date and Time Signed: 07/07/24 17:24 EST CAPILLARY GLUCOSE POC Collected: 07/07/2024 5:21 PM Status: F Source: [facility] TYPE CODE TESTS RESULT OUT OF RANGE REFERENCE UNITS LAB 2340-8([facility]) GLUCOSE:MCNC: PT:BLD:SEMIQN :TEST STRIP.AUTOMAT ED 148 High 55-99 mg/dL Result Comment: Notified RN/ Performed By: #### [id number] #### [facility] [address] [place] [address] PROGRESS NOTE-PHYSICIAN Observed: 2024 5:14 PM Status: F Source: [facility] Progress Note-Physician Left main-angiographically normal LAD-patent stent in proximal segment. Mid LAD has a area of 99% stenosis with LUIS II flow distal to the stenosis. Apical LAD has severe diffuse disease. Left circumflex-moderate ISR of mid left circumflex stent. OM1 and OM 2 are less than 1 mm size vessels. OM 3 is occluded and fills via left to left collaterals. Distal left circumflex is occluded. A medium caliber left posterolateral branch also fills via left to left and right to left collaterals. RCA-large caliber dominant vessel. Patent stent in mid segment. Mild to moderate ISR in distal RCA. Medium caliber bifurcating PDA which has mild diffuse disease. AV continuation gives rise to RPL1 - medium caliber vessel without any significant disease. RPL2 is small caliber vessel. LVEDP- 18 mmHg Recommendations: Aspirin 81 mg a day for 1 month Brilinta 90 mg twice a day for at least 1 year (patient received additional 180 mg dose during the heart cath procedure) Eliquis 5 mg twice daily from tomorrow Lipitor 80 mg a day Continue medical management and risk factor modification for residual CAD Continue GDMT for severe LV systolic dysfunction Post procedure: Sheath pull once ACT is less than 180 seconds Bedrest for 6 hours post sheath pull Normal saline at 50 cc an hour for 1 L EchocardiogramHold home doses of Entresto, Jardiance and spironolactone and hydralazine If hemodynamics are stable okay to give metoprolol succinate 12.5 mg dose tonight (hold if systolic blood pressure less than 90 mmHg) Echocardiogram Result Comment: Electronical ly Signed By: Luigi Montana MD\.br\Date and Time Signed: 07/07/24 17:18 EST INPATIENT PATIENT SUMMARY Observed: 06/10 5:04 PM Status: F Source: [facility] Inpatient Patient Summary [place] [address] Patient Discharge Instructions PERSON INFORMATION Name: LAURA LAWSON Date of : 1950 Current Date: 07/07/2024 17:04:48 PHYSICIANS Admitting Physician: Luigi Montana MD Primary Care Physician: CARLOS JOSHI MD PCP Comment: Discharge Diagnosis: 1:STEMI (ST elevation myocardial infarction) Condition at Discharge: LAURA LAWSON has been given the following list of follow-up instructions, prescriptions, and patient education materials: PATIENT FOLLOW-UP INFORMATION Diet: Discharge Activity: Discharge Restrictions: Wound Care Instructions: Remove Your Dressing In Days Call Your Doctor For: IF UNABLE TO CONTACT YOUR PHYSICIAN AND YOU FEEL IT IS AN EMERGENCY, GO TO THE NEAREST EMERGENCY ROOM OR CALL 911 Home Treatment: Devices/Equipment: Special Services: Additional Instructions: Primary Care Physician to provide the following pending test results: Follow up: In the event that this physician does not participate in your insurance network, please consult with your insurance company to find a nearby participating provider. Comment: LULU Michelle GERALDINE A, have received the attached patient education materials/instructions and have verbalized understanding: Patient Signature Date Clinican/Nurse Signature Date HERE ARE THE MEDICATION CHANGES THAT OCCURRED DURING YOUR HOSPITAL STAY Comment: MEDICATION LIST PROVIDED FOR YOU IS A LIST OF YOUR CURRENT MEDICATIONS. PLEASE CARRY THIS WITH YOU AT ALL TIMES. No Medications Documented Pharmacy Information: Comment: PATIENT EDUCATION INFORMATION Instructions: [place], [place] Cardiovascular PCI DISCHARGE INSTRUCTIONS Diet: ??? Resume pre-procedure diet. ??? Increase water intake the next 2 days to flush dye out of the body. Activity: If groin access: ??? Limit activity today. Do not operate a vehicle, machinery or power tools. ??? NO LIFTING OVER 10 POUNDS (a gallon of milk weighs 8 pounds) for 3 days. ??? Limit climbing stairs, bending, squatting and stooping for 3 days. ??? May resume driving in 24 hours. ??? Let pain/discomfort guide your activity. If you are having pain, stop. ??? No sexual activity for 1 week. ??? Return to the Emergency Room if you have trouble breathing, walking or nausea and vomiting. Medications: ??? Resume pre-procedure medication, unless otherwise directed. ??? Hold the following medications for 48 hours post procedure: Actoplus Met Glucophage Glucophage XR Glucovance Avandamet Fortamet Apo-metformin Glycon Kim-metformin Glumetza Janumet Metaglip Riomet Glycomet ??? Minimal pain, soreness and/or discomfort is expected. ??? If you are prescribed an aspirin and/or antiplatelet (such as Plavix, Brilinta or Effient) do NOT stop taking these medications for any reason without talking to your building certifier Site Care: ??? Do not remove dressing for 24 hours unless it becomes saturated, then replace. ??? Keep site clean and dry; inspect site daily. ??? Do not use any lotions, powders, or ointments at the groin or wrist site for 1 week. ??? May shower 24 hours after the procedure. Clean site with soap and water. Pat dry and apply band aid. No tub baths, swimming or hot tubs for 3 days. Post Procedure: ??? Soreness and tenderness to the site can last up to one week. ??? Bruising may occur to site. ??? A responsible adult should be with you for the first 24 hours after you arrive home. ??? Keep follow-up appointment. ??? Carry your stent card with you at all times. This provides information about your heart disease for any doctor who cares for you. ??? No smoking for 24 hours as it increases the risk of developing blood clots. ??? If you are interested in smoking cessation, contact [facility] at [phone], ext. [phone]. ??? In the event you are unable to reach your physician, please call Yariel Sinclair at [phone] and the cup trimming machine operator will assist you. Seek Medicare Care for: ??? Bleeding: Apply continuous pressure to the site and Call 911. ??? Should the arm or leg become cold, numb, blue or white call your physician immediately. ??? Signs of infection are redness, warmth, swelling, getting more sore, colored drainage, fever or chills ??? Chest pain ??? Blood in your urine or stool ??? Black tarry stools ??? Medication Leaflets: You may receive a survey from [employer] asking you to rate your care experience. Your feedback is important and will help us understand what we do well and how we can improve the quality of care we provide to you, your loved ones and our community. It???s an honor to serve you. Thank you for choosing [facility] PATIENT EDUCATION - TEXT Observed: 07/07 5:04 PM Status: F Source: [facility] Patient Education - Text [place], [place] Cardiovascular PCI DISCHARGE INSTRUCTIONS Diet: ??? Resume pre-procedure diet. ??? Increase water intake the next 2 days to flush dye out of the body. Activity: If groin access: ??? Limit activity today. Do not operate a vehicle, machinery or power tools. ??? NO LIFTING OVER 10 POUNDS (a gallon of milk weighs 8 pounds) for 3 days. ??? Limit climbing stairs, bending, squatting and stooping for 3 days. ??? May resume driving in 24 hours. ??? Let pain/discomfort guide your activity. If you are having pain, stop. ??? No sexual activity for 1 week. ??? Return to the Emergency Room if you have trouble breathing, walking or nausea and vomiting. Medications: ??? Resume pre-procedure medication, unless otherwise directed. ??? Hold the following medications for 48 hours post procedure: Actoplus Met Glucophage Glucophage XR Glucovance Avandamet Fortamet Apo-metformin Glycon Kim-metformin Glumetza Janumet Metaglip Riomet Glycomet ??? Minimal pain, soreness and/or discomfort is expected. ??? If you are prescribed an aspirin and/or antiplatelet (such as Plavix, Brilinta or Effient) do NOT stop taking these medications for any reason without talking to your building certifier Site Care: ??? Do not remove dressing for 24 hours unless it becomes saturated, then replace. ??? Keep site clean and dry; inspect site daily. ??? Do not use any lotions, powders, or ointments at the groin or wrist site for 1 week. ??? May shower 24 hours after the procedure. Clean site with soap and water. Pat dry and apply band aid. No tub baths, swimming or hot tubs for 3 days. Post Procedure: ??? Soreness and tenderness to the site can last up to one week. ??? Bruising may occur to site. ??? A responsible adult should be with you for the first 24 hours after you arrive home. ??? Keep follow-up appointment. ??? Carry your stent card with you at all times. This provides information about your heart disease for any doctor who cares for you. ??? No smoking for 24 hours as it increases the risk of developing blood clots. ??? If you are interested in smoking cessation, contact [facility] at [phone], ext. [phone]. ??? In the event you are unable to reach your physician, please call [facility] at [phone] and the cup trimming machine operator will assist you. Seek Medicare Care for: ??? Bleeding: Apply continuous pressure to the site and Call 911. ??? Should the arm or leg become cold, numb, blue or white call your physician immediately. ??? Signs of infection are redness, warmth, swelling, getting more sore, colored drainage, fever or chills ??? Chest pain ??? Blood in your urine or stool ??? Black tarry stools ??? INPATIENT CLINICAL SUMMARY Observed: 5:04 PM Status: F Source: [facility] Inpatient Clinical Summary [address] [address] Clinical Summary Person Information: Name: LAURA LAWSON Age: 73 Years : 1950 Sex: Female PCP: CARLOS JOSHI MD Marital Status: Single Phone: [phone] Race: White Ethnicity: Non- or Language: Mozambican Visit Id: Visit Reason: Chest pain; CHEST PAIN Speciality: Acuity: Enc Type: Inpatient Med Service: Medical Arrival: 07/07/2024 14:52:26 Discharge: Dispo Type: Address: [address] [facility] [id number] Provider Notes: Diagnosis: 1:STEMI (ST elevation myocardial infarction) Problems No Problems Documented Smoking Status: Never Smoker Functional Status: Sensory Deficits: History of Falls: Mobility Assistance Prior to Admission: ADLs: Current Level of Assistance for Self-Care/Mobility: Cognitive Status: Oriented x 3 Allergies No Known Allergies Measurements: Height: 157 cm Weight: 101.6 kg Blood Pressure: 84 mmHg / 52 mmHg BMI: 41.22 kg/m2 Procedures Cardiac catheterization, left heart (07/07/2024) Cardiac catheterization, left heart (07/07/2024) PCI (percutaneous coronary intervention) of left anterior descending branch of coronary artery (07/07/2024) Arterial stent (07/07/2024) Immunizations No Immunizations Documented This Visit Final Med List: No Medications Documented Care Team Members: Attending Physician: Selvin Yeh DO Consulting Physician: Referring Physician: Follow up: Patient Education Information: CV - Cardiovascular PCI Discharge Instructions (Custom) OPERATIVE REPORT Observed: 07/07/2024 4:52 PM Status: F Source: [facility] Operative Report Indication for Surgery Acute anterolateral myocardial infarction Preoperative Diagnosis Chest pain Acute anterolateral myocardial infarction Postoperative Diagnosis Status post PCI to mid LAD with 3 x 18 mm Xience jazzmine point drug-eluting stent Preangioplasty stenosis-99% Postangioplasty stenosis-0% Preangioplasty LUIS flow-2 Post angioplasty LUIS flow-3 Operation Left heart catheterization PCI of mid LAD Surgeon(s) Dr. Luigi Montana MD Anesthesia Moderate sedation Estimated Blood Loss < 10 cc Findings Left main-angiographically normal LAD-patent stent in proximal segment. Mid LAD has a area of 99% stenosis with LUIS II flow distal to the stenosis. Apical LAD has severe diffuse disease. Left circumflex-moderate ISR of mid left circumflex stent. OM1 and OM 2 are less than 1 mm size vessels. OM 3 is occluded and fills via left to left collaterals. Distal left circumflex is occluded. A medium caliber left posterolateral branch also fills via left to left and right to left collaterals. RCA-large caliber dominant vessel. Patent stent in mid segment. Mild to moderate ISR in distal RCA. Medium caliber bifurcating PDA which has mild diffuse disease. AV continuation gives rise to RPL1 - medium caliber vessel without any significant disease. RPL2 is small caliber vessel. LVEDP- 18 mmHg Recommendations: Aspirin 81 mg a day for 1 month Brilinta 90 mg twice a day for at least 1 year Eliquis 5 mg twice daily from tomorrow Lipitor 80 mg a day Continue medical management and risk factor modification for residual CAD Continue GDMT for severe LV systolic dysfunction Complications None. Technique The risks, benefits and alternatives to the planned procedure were reviewed with the patient, informed consent was obtained and placed in the chart. Patient was brought to the cardiac cath rn and prepped and draped in usual sterile fashion. Using a modified Seldinger technique a 6 x 23 sheath was placed in the right femoral artery. A JL 4 catheter was used to selectively engage the left coronary artery. An area of severe stenosis in mid LAD with LUIS II flow across this lesion was deemed to be the culprit lesion and a PCI was planned. Heparin was used to maintain adequate anticoagulation during the procedure. EBU 3 oh guide catheter was used to selectively engage the left coronary artery. Lesion crossed using a Runthrough wire. Predilatation was done with a 2.5 x 12 and a 3 x 12 NC balloons inflated up to 20 jamaal. A 3 x 18 mm Xience jazzmine point drug-eluting stent was deployed at 14 jamaal which was subsequently postdilated with a 3 x 12 mm NC balloon up to 24 jamaal. Preangioplasty stenosis-99% Postangioplasty stenosis-0% Preangioplasty LUIS flow-2 Post angioplasty LUIS flow-3 At this time a JR4 catheter was used to record LVEDP and perform an LV gram. JR4 was also used to selectively engage the right coronary artery. After completion of the left heart catheterization for diagnostic angiogram of the femoral access was obtained. 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 The 6 x 23 sheath was exchanged to a 6 x 11 sheath with plan for manual compression for hemostasis once ACT was less than 180 seconds. Result Comment: Electronical ly Signed By: Luigi Montana MD\.padmini\Date and Time Signed: 07/07/24 17:12 EST ED PATIENT EDUCATION NOTE Observed: 06/10 4:04 PM Status: F Source: [facility] ED Patient Education Note ED CLINICAL SUMMARY Observed: 07/07/2024 4:04 PM Status: F Source: [facility] ED Clinical Summary [address] [address] ED Clinical Summary Person Information Name: LAURA LAWSON/New_Watson Age: 73 Years : 1950 Sex: Female Language: Mozambican PCP: CARLOS JOSHI MD Marital Status: Single Phone: [phone] Visit Id: Visit Reason: Chest pain; CHEST PAIN Speciality: Acuity: 2 Enc Type: Inpatient Med Service: Medical Arrival: 07/07/2024 14:52:26 Discharge: LOS: 000 01:12 Checkin: 07/07/2024 14:52:26 Checkout: Dispo Type: EVENTS: Event Name Event Status Request Date/Time Start Date/Time Complete Date/Time Arrive Complete 07/07/2024 14:52:26 07/07/2024 14:52:26 07/07/2024 14:52:26 Document Home Meds Request 07/07/2024 14:52:26 Triage Complete 07/07/2024 14:52:26 07/07/2024 15:03:56 07/07/2024 15:03:56 Bed Assign Complete 07/07/2024 14:52:26 07/07/2024 14:52:26 07/07/2024 14:52:26 Dr Exam Complete 07/07/2024 14:52:26 07/07/2024 14:57:56 07/07/2024 14:57:56 RN Exam Complete 07/07/2024 14:52:26 07/07/2024 16:01:02 07/07/2024 16:01:02 Registration Complete 07/07/2024 14:57:56 07/07/2024 15:48:35 07/07/2024 15:48:35 EKG Complete 07/07/2024 14:58:58 07/07/2024 15:02:50 Pending Labs Request 07/07/2024 14:58:58 Lab Complete 07/07/2024 14:58:58 07/07/2024 15:59:21 Patient Care Request 07/07/2024 14:58:58 RT Request 07/07/2024 14:58:58 X-Ray Start 07/07/2024 14:58:58 07/07/2024 15:04:31 EKG Complete 07/07/2024 15:06:15 07/07/2024 15:11:50 Meds Admin Request 07/07/2024 15:18:34 Patient Care Request 07/07/2024 15:18:34 RT Request 07/07/2024 15:18:34 Meds Admin Complete 07/07/2024 15:26:05 07/07/2024 15:55:26 Meds Admin Request 07/07/2024 15:27:24 Patient Care Request 07/07/2024 15:27:57 Transfer Request 07/07/2024 15:27:57 Pending Labs Complete 07/07/2024 15:29:50 07/07/2024 15:29:50 07/07/2024 15:59:21 Lab Complete 07/07/2024 15:29:50 07/07/2024 15:29:50 07/07/2024 15:59:21 Reg Complete Request 07/07/2024 15:48:35 Reg Bed Request Complete 07/07/2024 15:48:35 07/07/2024 15:48:35 07/07/2024 15:48:35 Admit Request 07/07/2024 15:49:35 Patient Care Request 07/07/2024 15:49:36 Patient Care Request 07/07/2024 15:49:36 Patient Care Request 07/07/2024 15:49:37 Patient Care Request 07/07/2024 15:49:37 Medicare Form Request 07/07/2024 15:49:38 Patient Care Request 07/07/2024 15:49:38 Patient Care Request 07/07/2024 15:49:38 ADDRESS: [address] [facility] [id number] PHYS DOC NOTES: MEDICAL INFORMATION: Prescriptions Given: PATIENT EDUCATION INFORMATION: Instructions: Follow up: DIAGNOSIS: 1:STEMI (ST elevation myocardial infarction) ED PATIENT SUMMARY Observed: 07/07/2024 4:04 PM Status: F Source: [facility] ED Patient Summary [place] [id number] Patient Discharge Instructions Person Information Name: LAURA LAWSON Age: 73 Years Arrival Date: 07/07/2024 14:52:26 Discharge Diagnosis: 1:STEMI (ST elevation myocardial infarction) Primary Care Physician: CARLOS JOSHI MD Provider Information Primary Provider: Markos Moreno M.D. Advanced Pattern Grader Supervisor:None The exam and treatment you received in the Emergency Department were for an urgent problem and are not intended as complete care. It is important that you follow up with a doctor, nurse practitioner, or physician???s legal assistant for ongoing care. If your symptoms become worse or you do not improve as expected and you are unable to reach your usual health care provider, you should return to the Emergency Department. We are available 24 hours a day. LAURA LAWSON has been given the following list of patient education materials, prescriptions and follow-up instructions: Follow-up Instructions: In the event that this physician does not participate in your insurance network, please consult with your insurance company to find a nearby participating provider. Patient Education Materials: A MESSAGE TO ALL PATIENTS REGARDING OPIOIDS PRESCRIPTION OPIOIDS: WHAT YOU NEED TO KNOW Prescription opioids can be used to help relieve tdzcdsms-mh-hndict pain and are often prescribed following a surgery or injury, or for certain health conditions. These medications can be an important part of the treatment but also come with serious risks. It is important to work with your healthcare provider to make sure you are getting the safest, most effective care. WHAT ARE THE RISKS AND SIDE EFFECTS OF OPIOID USE? Prescription opioids carry serious risks of addiction and overdose, especially with prolonged use. An opioid overdose, often marked by slowed breathing, can cause sudden . The use of prescription opioids can have a number of side effects as well, even when taken as directed: ??? Tolerance???meaning you might need to take more of the medication for the same pain relief ??? Physical dependence???meaning you have symptoms of withdrawal when a medication is stopped ??? Increased sensitivity to pain ??? Constipation ??? Nausea, vomiting, and dry mouth ??? Sleepiness and dizziness ??? Confusion ??? Depression ??? Low levels of testosterone that can result in lower sex drive, energy, and strength ??? Itching and sweating RISKS ARE GREATER WITH: ??? History of drug misuse, substance use disorder, or overdose ??? Mental health conditions (such as depression or anxiety) ??? Sleep apnea ??? Older age (65 years and older) ??? Avoid alcohol while taking prescription opioids. Also, unless specifically advised by your health care provider, medications to avoid include: ??? Benzodiazepines (such as Xanax or Valium) ??? Muscle relaxants (such as Soma or Flexeril) ??? Hypnotics (such as Ambien or Lunesta) ??? Other prescription opioids KNOW YOUR OPTIONS Talk to your health care provider about ways to manage your pain that don???t involve prescription opioids. Some of these options may actually work better and have fewer risks and side effects. Options may include: ??? Pain relievers such as acetaminophen, ibuprofen, and naproxen ??? Some medication that are also used for depression or seizures ??? Physical therapy and exercise ??? Cognitive behavioral therapy, a psychological, goal-directed approach, in which patients learn how to modify physical, behavioral, and emotional triggers of pain and stress. IF YOU ARE PRESCRIBED OPIOIDS FOR PAIN: ??? Never take opioids in greater amounts or more often than prescribed. ??? Follow up with your primary health care provider. o Work together to create a plan on how to manage your pain. o Talk about ways to help manage your pain that don???t involve prescription opioids. o Talk about any and all concerns and side effects. ??? Help prevent misuse and abuse o Never sell or share prescription opioids. o Never use another person???s prescription opioids. ??? Store prescription opioids in a secure place and out of reach of others (this may include visitors, children, friends, and family). ??? Safely dispose of unused prescription opioids: Find your community drug take-back program or your pharmacy mail-back program, or flush them down the toilet, following guidance from the Food and Drug Administration (www.fda.gov/Drugs/ResourcesForYou). ??? Visit www.cdc.gov/drugoverdose to learn about the risks of opioids abuse and overdose. ??? If you believe you may be struggling with addiction, tell your health rn progressive care and ask for guidance or call [facility]???S National Helpline at 9-356-872-HELP. v Source: US Department of Health and Human Services/Center for Disease Control & Prevention [facility] Medications Given: Medication Dose Route heparin 4000.00 unit(s) IV Push Right Wrist ticagrelor 90.00 mg Oral Sodium Chloride 0.9% 500.00 mL IV Right Wrist Medication Information: Comment: Patient Portal You may access all of your results and other medical record information on our secure patient portal. If you are not signed up for this yet, please contact [employer] at [phone] to get signed up today. LJ Award Nomination The LJ (Diseases Attacking the Immune SYstem) Award is an international recognition program that honors and celebrates the skillful, compassionate care nurses provide every day. Anyone who experiences or observes amazing care being provided by a nurse is encouraged to submit a nomination. To nominate your nurse, use your smart phone to scan the QR code below. You may receive a survey from [employer] asking you to rate your care experience. Your feedback is important and will help us understand what we do well and how we can improve the quality of care we provide to you, your loved ones and our community. It???s an honor to serve you. Thank you for choosing [facility] Patient Education Materials: LULU Michelle GERALDINE A , have received the following patient education materials/instructions and have verbalized understanding: Patient Education Materials: Follow-up Instructions: Patient Signature Date Clinician/Nurse Signature Date 07/07/2024 16:04:02 ED NOTE-NURSING Observed: 07/07/2024 4:00 PM Status: F Source: [facility] ED Note-Nursing Stemi alert called on pt at 1517. pt made aware of the changes to her ecg by both dr moreno and dr hutson. Both doctors told the pt that she was having a heart attack and that she was in need of emergent intervention via cardiac cath rn due to the imminent danger to her life. pt made aware that she could without immediate intervention. pt states I know, I just don't care. I want to see my heart doctor in [place]. staff reinforced and reiterated to the patient that there was an increased chance of with waiting. pt stated I understand, I want to go to [place] to see my heart doctor . transport to [place] to be arranged. Pt's friend allowed back to the room. pt and her friend began to talk. this rn in room to start administering medications. pt informed that she has been accepted by her building certifier in [place] and that transport by helicopter would be set up soon. pt states woah, I didn't realize that this was that serious that I would need a helicopter . dr moreno and this rn then reinterated to the patient again that this was a heart attack and that there was a serious risk to the patients life. pt states that I knew that I was having a heart attack, but I didn't realize that this was a serious heart attack. this rn states all heart attacks are serious. the reason that we want you to go to the cardiac cath rn here is because every minute that you wait to be treated is more damage being done to your heart. the more damage done to your heart, the more the risk of is. Do you want your cath here or in [place] . pt states I'll do it here, you can cancel the helicopter . cardiac cath rn notified and pt taken to cardiac cath rn. ED NOTE-PHYSICIAN Observed: 07/07/2024 3:49 PM Status: F Source: [facility] ED Note-Physician Basic Information Time Seen: Tiffanie Moreno Markos Cruz 07/07/2024 14:57 Chief Complaint chest pain that began around 1315 today. deneis shortenss of breath, cough, fevers/chills History of Present Illness The patient is a 73-year-old female past medical history of diabetes, hypertension, hyperlipidemia, coronary artery disease status post 4 cardiac stents last year who presented to the emergency room via EMS for chest pain. The patient states the pain started around 1 pm. She describes it as tightness/pressure. The patient said the pain was radiating to the left chest. The facility gave her 3 baby aspirin and 3 nitroglycerin. Per EMS her blood pressure had dropped initially to 57/33 and when EMS arrived her pressure was 81/49. The EMS did an EKG with machine reads it as STEMI which appears to be left bundle branch block. Upon arrival EMS that the blood pressure has improved to 104 systolic. The patient states her pain has resolved. She denies any nausea, denies any vomiting. Denies any sweating. The patient denies any shortness of breath. Denies any dizziness or lightheadedness. The patient states the pain felt the same as when she was diagnosed with heart attack. The patient denies any other associated symptoms. Review of Systems Additional ROS info: Except as noted in the above Review of Systems and in the History of Present Illness all other systems have been reviewed and are negative or noncontributory. Physical Exam Vitals & Measurements T: 37.5 ???C(Oral) HR: 85(Peripheral) RR: 18 BP: 107/55 SpO2: 94% HT: 157 cm WT: 101.6 kg BMI: 41.22 General: alert, no acute distress Skin: warm, moist Head: no trauma, normocephalic Neck: Trachea midline, no tenderness, supple Eye: normal conjunctiva, sclera clear, PERRL, EOMI, vision unchanged ENMT: Oral mucosa moist, no pharyngeal erythema or exudate Cardiovascular: regular rate and rhythm Respiratory: Lungs CTA, respirations non labored, breath sounds equal Chest wall: no deformity,notenderness Gastrointestinal: soft, non distended, no tenderness, no guarding Extremities: no deformity, no trauma Neurological: Alert and oriented, speech normal, no focal neuro deficits Psychiatric: cooperative, affect appropriate for age Medical Decision Making MEDICAL DECISION MAKING Number and Complexity of Problems Differential Diagnosis: [] [facility] Data External documents reviewed: [] My EKG interpretation: [] My CT interpretation: [] My X-ray interpretation: [] My Ultrasound interpretation: [] Decision rules/scores evaluated: [] Discussed with:Dr Montana and Dr Baca Treatment and Disposition ED Course: The patient presented with chest pain. Her chest pain is completely resolved when patient arrived. The EMS states then the EKG which was discussed with Dr. Montana cardiology who does not see any inferior AK other than left bundle branch block. The patient upon arrival EKG was obtained which shows the same left bundle branch block. The EKG was repeated shortly after that and shows the left bundle branch block with ST elevation on the lateral leads concerning for STEMI. The case was discussed again with Dr. Montana who recommends heparin 4000 bolus and calling STEMI alert. He came down to the emergency room to take patient to the Restaurant [facility] Manager at the patient refused to go to the Restaurant [facility] Manager here. She states she wants to go to [facility] where her building certifier is. The patient is alert and oriented. She is capable of making decision. We explained to the patient that this is a heart attack and she can from it. The patient understood and verbalized that yes she can and she still wanted to go to [place]. At this time Dr. Montana recommend starting heparin drip. I discussed the case with who agreed that this is not the ideal for the patient however he excepted since the patient has refused to get cardiac cath here. At this time we started calling the helicopter to transfer the patient. The patient's friend has come to the room at this time and the patient changed her mind. She agreed to get the cardiac cath here. The case was discussed again with Dr. Montana who came to the emergency room and took the patient to the [facility]. Upon arrival her blood pressure was soft on the 90s. It dropped to 80s. Patient was given 500 mL of normal saline. The patient is taken to the [facility]. The hospitalist was notified. Shared decision making: Patient and her friend Code status: [] Critical Care Time: 55 minutes, critical care time is separate from any procedures that are performed. The following was considered in the determination of critical care but not limited to the level medical decision-making, intensive cardiac and/or respiratory monitor, frequent vital sign monitoring, evaluation of laboratory studies, evaluation of a radiographic studies, oxygen monitoring and constant monitoring. Assessment/Plan 1. STEMI (ST elevation myocardial infarction) (I21.3: ST elevation (STEMI) myocardial infarction of unspecified site) Orders: heparin, 4,000 unit(s) = 0.8 mL, Injection, IV Push, Once, Stop date 07/07/24 15:18:00 EST, STAT, Start date 07/07/24 15:18:00 EST, 07/07/24 15:18:00 EST heparin 25,000 unit(s) [9.842 unit/kg/hr] + Dextrose 5% in Water intravenous solution 500 mL, 500 mL, IV, 20 mL/hr, Routine, Start date 07/07/24 15:27:00 EST, 25 hour(s), Total volume (mL): 500, Titrate per low intensity heparin protocol (Table 3 on reference text), 101.6 kg, Max INITIAL rate = 1000 unit(s)/hr (20 mL/hr). May go above this onc... Sodium Chloride 0.9% intravenous solution, 500 mL, IV, Stop date 07/07/24 15:24:00 EST, Start date 07/07/24 15:24:00 EST Sodium Chloride 0.9% intravenous solution 1,000 mL, 1,000 mL, IV, KVO, STAT, Start date 07/07/24 15:18:00 EST, Total volume (mL): 1,000, 101.6 kg, 2.1, m2 ticagrelor, 90 mg = 1 tab(s), Tab, Oral, Once, Stop date 07/07/24 15:25:00 EST, STAT, Start date 07/07/24 15:25:00 EST, 07/07/24 15:25:00 EST B-Type Natriuretic Peptide Basic Metabolic Panel CBC w/ Auto Diff Communication Order Communication Order CV Cardiovascular CV Coronary IVUS FFR Initial CV Coronary IVUS Initial ECG 12 Lead Adult ECG 12 Lead Adult ED Cardiac Monitoring ED Cardiac Monitoring eGFR Magnesium Level Oxygen Saturation Oxygen Therapy Oxygen Therapy PT & PTT Saline Lock Insert Transfer Patient Troponin 0 Hr. Troponin 1 Hr. Troponin 3 Hr. Troponin 6 Hr. XR Chest Single View Medications Administered Given heparin 5000 units/mL Inj, 4000 unit(s), IV Push Sodium Chloride 0.9% IV Roxy 500 mL [F], 500 mL, IV Disposition Plan Patient Discharge Condition Stable Discharge Disposition Taken to the [facility] Discharge Prescription List Prescriptions No active prescription medications Follow-up No qualifying data available Problem List/Past Medical History Ongoing No qualifying data Historical No qualifying data Medications Inpatient heparin additive 25,000 unit(s) [9.842 unit/kg/hr] + Premix Dextrose 5% Diluent 500 mL Sodium Chloride 0.9% IV Roxy 1000 mL 1,000 mL, 1000 mL, IV ticagrelor 90 mg oral tablet, 90 mg= 1 tab(s), Oral, Once Home No active home medications Allergies No Known Allergies Lab Results WBC: 8.7 E9/L (07/07/24 15:27:00) RBC: 4 E12/L Low (07/07/24 15:27:00) HGB: 12.4 gm/dL (07/07/24 15:27:00) Hct: 37.5 % (07/07/24 15:27:00) MCV: 95 fL (07/07/24 15:27:00) MCH: 31.3 pg (07/07/24 15:27:00) MCHC: 33 gm/dL (07/07/24 15:27:00) RDW: 21.7 % High (07/07/24 15:27:00) Platelet: 233 E9/L (07/07/24 15:27:00) MPV: 7.8 fL (07/07/24 15:27:00) Neutro Auto: 62.6 % (07/07/24 15:27:00) Lymph Auto: 16.5 % (07/07/24 15:27:00) [place] Auto: 15 % High (07/07/24 15:27:00) Eos Auto: 4.7 % (07/07/24 15:27:00) Basophil Auto: 1.2 % (07/07/24 15:27:00) Neutro Absolute: 5.5 E9/L (07/07/24 15:27:00) Lymph Absolute: 1.4 E9/L (07/07/24 15:27:00) [place] Absolute: 1.3 E9/L High (07/07/24 15:27:00) Eos Absolute: 0.4 E9/L (07/07/24 15:27:00) Basophil Absolute: 0.1 E9/L (07/07/24 15:27:00) PT: 16.6 second(s) High (07/07/24 15:27:00) INR: 1.48 (07/07/24 15:27:00) PTT: 34.9 second(s) (07/07/24 15:27:00) Diagnostic Results No qualifying data available. EKG Results EC07/07/24: SINUS RHYTHM WITH FIRST DEGREE AV BLOCK WITH OCCASIONAL SUPRAVENTRICULAR PREMATURE COMPLEXES MARKED LEFT AXIS DEVIATION [QRS AXIS < -30] LOW QRS VOLTAGE [QRS DEFLECTION < 0.5/1.0 mV IN LIMB/CHEST LEADS] POSSIBLE ANTERIOR MYOCARDIAL INFARCTION [30 ms Q WAVE IN V3/V4, OR R < 0.2 mV IN V4], OF INDETERMINATE AGE MARKED ST ELEVATION, CONSIDER INFERIOR INJURY [MARKED ST ELEVATION W/O NORMALLY INFLECTED T WAVE IN II/aVF] ACUTE AK Signed By: Markos Moreno M.D. 07/07/2024 15:28:30 Result Comment: Electronical ly Signed By: Markos Moreno M.D.\.br\Date and Time Signed: 07/07/24 17:19 EST PROGRESS NOTE-PHYSICIAN Observed: 2024 3:29 PM Status: F Source: [facility] Progress Note-Physician I was called by the ER team to evaluate the patient in the ER for complaints of chest pain and abnormal EKG. EKG reviewed-concerning for anterolateral injury pattern with ST elevation. Patient also reports history of prior 'stents' and also reports having undergone a 'ballooning of the vessel'-the most recent procedure which involved only ballooning was in April 2024. Patient reports all her procedures have been done at [facility]. When I explained to the patient that she is likely having a heart attack and will need emergent heart cath patient told she wants to go to [facility] for further management. I and the ER physician both explained to the patient that she is at high risk of adverse outcomes including by delaying the procedure. Patient says she understands the risks but would not have a procedure done here and would only go to [facility] for a heart catheterization. She did tell me that her pain has subsided and currently she is pain-free. Reviewed her home medication list-patient takes Brilinta 90 mg twice a day and Eliquis 5 mg twice daily. Advised ER team to emergently contact [facility] for emergent transfer as per patient wishes. Recommend starting patient on heparin infusion. Give 90 mg dose of Brilinta. Monitor on telemetry. If patient changes her opinion and wishes to proceed with a heart cath at [facility] we will reevaluate and proceed with the heart catheterization. Result Comment: Electronical ly Signed By: Nan BREWER, Luigi\.br\Date and Time Signed: 07/07/24 15:35 EST CBC W/ AUTO DIFF Collected: 07/07/2024 3:27 PM Statu s: F Source: [facility] TYPE CODE TESTS RESULT OUT OF RANGE REFERENCE UNITS LAB 18809-1(LOINC) LEUKOCYTES^^RODOLFO ECTED FOR NUCLEATED ERYTHROCYTES:NCN C:PT:BLD:QN:AUTO MATED COUNT 8.7 Normal 4.0-11.0 E9/L LAB 789-8(LOINC) ERYTHROCYTES:NCN C:PT:BLD:QN:AUTO MATED COUNT 4.0 Low 4.3-5.9 E12/L LAB 718-7(LOINC) HEMOGLOBIN:MCNC: PT:BLD:QN: 12.4 Normal 12.0-16.0 gm/dL LAB 4544-3(LOINC) HEMATOCRIT:VFR:P T:BLD:QN:AUTOMAT ED COUNT 37.5 Normal 34.0-46.0 % LAB 788-0(LOINC) ERYTHROCYTE DISTRIBUTION WIDTH:RATIO:PT:R BC:QN:AUTOMATED COUNT 21.7 High 10.9-14.2 % LAB 785-6(LOINC) ERYTHROCYTE MEAN CORPUSCULAR HEMOGLOBIN:ENTMA SS:PT:RBC:QN:AUT OMATED COUNT 31.3 Normal 27.0-34.0 pg LAB 786-4([facility]) ERYTHROCYTE MEAN CORPUSCULAR HEMOGLOBIN CONCENTRATION:MC NC:PT:RBC:QN:AUT OMATED COUNT 33.0 Normal 31.4-36.0 gm/dL LAB 787-2([facility]) ERYTHROCYTE MEAN CORPUSCULAR VOLUME:ENTVOL:PT :RBC:QN:AUTOMATE D COUNT 95.0 Normal 80.0-100.0 fL LAB 06664-1([facility]) PLATELET MEAN VOLUME:ENTVOL:PT :BLD:QN:AUTOMATE D COUNT 7.8 Normal 6.4-10.8 fL LAB 777-3([facility]) PLATELETS:NCNC:P T:BLD:QN:AUTOMAT ED COUNT 233.0 Normal 150.0-500.0 E9/L LAB 52442-3([facility]) NEUTROPHILS/100 LEUKOCYTES:NFR:P T:BLD:QN: 62.6 Normal 36.0-75.0 % LAB 731-0([facility]) LYMPHOCYTES:NCNC :PT:BLD:QN:AUTOM ATED COUNT 16.5 Normal 14.0-50.0 % LAB 742-7([facility]) MONOCYTES:NCNC:P T:BLD:QN:AUTOMAT ED COUNT 1.3 High 0.2-1.0 E9/L LAB 713-8([facility]) EOSINOPHILS/100 LEUKOCYTES:NFR:P T:BLD:QN:AUTOMAT ED COUNT 4.7 Normal 0.0-8.0 % LAB 704-7([facility]) BASOPHILS:NCNC:P T:BLD:QN:AUTOMAT ED COUNT 1.2 Normal 0.0-2.0 % LAB 751-8([facility]) NEUTROPHILS:NCNC :PT:BLD:QN:AUTOM ATED COUNT 5.5 Normal 2.0-7.5 E9/L LAB 30817-8([facility]) LYMPHOCYTES:NCNC :PT:BLD:QN: 1.4 Normal 1.0-4.0 E9/L LAB 77512-8([facility]) EOSINOPHILS:NCNC :PT:BLD:QN: 0.4 Normal 0.0-0.5 E9/L LAB 96205-3([facility]) BASOPHILS/LEUKOC YTES:NFR.DF:PT:B LD:QN:AUTOMATED COUNT 0.1 Normal 0.0-0.2 E9/L Performed By: #### [id number] # ### [facility] [address] [place] [address] TROPONIN 0 HR. Collected: 5 3:27 PM Status: F Source: [facility] TYPE CODE TESTS RESULT OUT OF RANGE REFERENCE UNITS LAB 32745272([facility]) Troponin HS 2724.80 Abnormal 10.10-27.10 pg/mL Result Comment: Critical Res ult Verified by Repeat Analysis Critical Result I_TnIHS:2724.8 Called to and read back by: ANNI WEINER at: 07/07/2024 16:26:13 by:[id number] The 95% CI (Confidence Interval) PPV (Positive Predictive Value) for myocardial infarction in females is 38 pg/mL, in males 51 pg/mL. The results should be used in conjunction with clinical conditions of myocardial infarction. (Access High Sensitivity Troponin I Instructions For Use, [employer], January 2018) Performed By: #### [id number] #### [facility] [address] [place] [address] BMP Collected: 5 3:27 PM Status: F Source: [facility] TYPE CODE TESTS RESULT OUT OF RANGE REFERENCE UNITS LAB 2345-7([facility]) GLUCOSE:MCNC :PT:SER/PLAS :QN: 197 Normal 55-199 mg/dL LAB 3094-0([facility]) UREA NITROGEN:MCN C:PT:SER/REMEDIOS S:QN: 28 High 5-21 mg/dL LAB 2160-0([facility]) CREATININE:M CNC:PT:SER/P LAS:QN: 1.0 Normal 0.5-1.3 mg/dL LAB 3097-3([facility]) UREA NITROGEN/CRE ATININE:MRTO :PT:SER/PLAS :QN: 28 High 10-20 No Units LAB 29168-3([facility]) CALCIUM:MCNC :PT:SER/PLAS :QN: 10.1 Normal 8.9-11.1 mg/dL LAB 2951-2([facility]) SODIUM:SCNC: PT:SER/PLAS: QN: 134 Low 135-145 mmol/L LAB 2823-3([facility]) POTASSIUM:SC NC:PT:SER/PL :QN: 4.2 Normal 3.5-5.3 mmol/L LAB 2075-0([facility]) CHLORIDE:SCN C:PT:SER/REMEDIOS S:QN: 99 Low 101-111 mmol/L LAB 8-9([facility]) CARBON DIOXIDE:SCNC :PT:SER/PLAS :QN: 25 Normal 21-31 mmol/L LAB 95816-4([facility]) ANION GAP:SCNC:PT: SER/PLAS:QN: 14 Normal 6-16 mEq/L Performed By: #### [id number] # ### [facility] [address] [place] [id number] BNP Collected: 07/07/2024 3:27 PM Status: F Source: [facility] TYPE CODE TESTS RESULT OUT OF RANGE REFERENCE UNITS LAB 95238-7([facility]) NATRIURETIC PEPTIDE.B:MCNC:P T:SER/PLAS:QN: 1610 High 5-80 pg/mL Performed By: #### [id number] #### [facility] [address] [place] [address] MAGNESIUM Collected: 07/07/2024 3:27 PM Status: F Source: [facility] TYPE CODE TESTS RESULT OUT OF RANGE REFERENCE UNITS LAB 71906-8([facility]) MAGNESIUM:MCN C:PT:SER/PLAS :QN: 2.1 Normal 1.3-2.4 mg/dL Performed By: #### [id number] # ### [facility] [address] [place] [address] EGFR Collected: 3:27 PM Status: F Source: [facility] TYPE CODE TESTS RESULT OUT OF RANGE REFERENCE UNITS LAB 26341437([facility]) eGFR 60 Normal >=59 mL/min/1 .7 3 m2 Performed By: #### [id number] #### [facility] [address] [place] [address] PT & PTT Collected: 3:27 PM Status: F Source: [facility] TYPE CODE TESTS RESULT OUT OF RANGE REFERENCE UNITS LAB 5902-2([facility]) COAGULATION TISSUE FACTOR INDUCED:TIME:P T:PPP:QN:COAG 16.6 High 9.4-12.5 second(s ) Result Comment: 15 days - 4 weeks 1 - 5 months 6 -11 months 1-5 years 6-10 years 11 -17 years Mean: 11.2 (9.5-12.6) Mean: 11.0 (9.7-12.8) Mean: 11.0 (9.8-13.0) Mean: 11.3 (9.9-13.4) Mean: 11.7 (10.0-14.6) Mean: 11.8 (10.0 - 14.1) Pediatric Reference ranges were obtained from a study by justine Padgett al. prepared from 1437 samples obtained at 7 different centers using the same coagulation reagent and instrumentation as [facility]. Currently there are no coagulation studies available worldwide for children to 14 days, and no normal ranges. LAB 41957-8([facility]) COAGULATION SURFACE INDUCED:TIME:P T:PPP:QN:COAG 34.9 Normal 25.1-36.5 second(s ) Result Comment: Parameter 15 days - 4 weeks 1 - 5 months 6 - 11 months 1 - 5 years 6 - 10 years 11 - 17 years PTT Mean: 35.4 (27.6-45.6) Mean: 33.5 (24.8-40.7) Mean: 32.4 (25.1-40.7) Mean: 31.6 (24.0-39.2) Mean: 31.6 (26.9-38.7) Mean: 31.0 (24.6-38.4) Pediatric Reference ranges were obtained from a study by Alex Cuello et al. prepared from 1437 samples obtained at 7 different centers using the same coagulation reagent and instrumentation as [facility]. Currently there are no coagulation studies available worldwide for children to 14 days, and no normal ranges. Heparin therapeutic range (represented by Anti-Factor Xa activity of 0.2 - 0.4 U/mL) corresponds to PTT of 56.6 - 109.0 sec. LAB 6301-6([facility]) COAGULATION TISSUE FACTOR INDUCED.INR:RE LTIME:PT:PPP:Q N:COAG 1.48 Unknown Result Comment: INR results are specifically intended to assess patients stabilized on long-term Anticoagulation therapy suggested INR???s ???Less Intensive Anticoagulation??? 2.0 ??? 3.0 Conventional Range 3.0 ??? 4.5 Performed By: #### [id number] #### [facility] [address] [place] [address] PRE-ARRIVAL NOTE Observed: 07/07/2024 2:52 PM Status: F Source: [facility] Pre-Arrival Note Pre-Arrival Summary Name: , Current Date: 07/07/2024 14:52:49 EST Gender: Female Date of : Age: 73 Pre-Arrival Type: EMS ETA: 07/07/2024 15:18:00 EST Primary Care Physician: Presenting Problem: hypotensive chest pain Pre-Arrival User: Corinne Ross RN Referring Source: Location: [place] Completion Date/Time: 07/07/2024 14:48:00 [facility] Emergency Department Pre-Hospital Report Form Vital Signs: Pre-Hospital Report: Treatment in Route: Response to Treatment: Misc. Issues: 36 Observed: 06/17/2024 12:19 PM Status: COMPLETED Source: [facility] Digna from [facility] Cardiac Rehab made aware. 36 Observed: 06/17/2024 8:36 AM Status: COMPLETED Source: [facility] Thanks! Yes, she can resume cardiac rehab but looks like she will be getting PT/OT at the facility for weakness and likely can't do both but rehab can look into this. Thanks! 36 Observed: 06/16/2024 3:50 PM Status: COMPLETED Source: [facility] Looks like she was just disc harged from [facility] yesterday for fall and UTI. I will upload records right now. 36 Observed: 06/16/2024 3:40 PM Status: COMPLETED Source: [facility] Patient LVM for clinic with questions regarding Ozempic. Patient currently admitted to [facility] s/p recent hospitalization. Nurse at facility stated that patient was on Trulicity and Ozempic during hospitalization. Per last follow-up, patient was to discontinue Trulicity and switch to Ozempic. Confirmed patient is on only 1 GLP1RA at facility; pt to continue on Trulicity 3mg once weekly and stop Ozempic. Chart updated. Ezekiel Kay PharmD Cardiology Outpatient Clinical Pharmacist 06/16/24 36 Observed: 06/16/2024 1:41 PM Status: COMPLETED Source: [facility] She was recently in the hosp ital but I'm not sure what for. Can we get those records? 36 Observed: 06/16/2024 12:50 PM Status: COMPLETED Source: [facility] Cardiac Rehab just recei naz an order for cardiac rehab on this patient but it's dated for Apr 2024. Can she resume? TELEPHONE Observed: 06/16/2024 12:00 AM Status: COMPLETED Source: [facility] [id number] Laura Lawson 0 1950 F Date Provider Department Center 06/16/2024 [id number]-IBFCEZEKIEL KAY HVCANTICOAG [place] [facility] Family History Problem Relation Age of Onset JABARI disease Mother Heart attack Father Family Status - Relation Status Age at Mother Father URINE CULTURE Observed: 06/13/2024 5:40 AM Status: C Source: [facility] ORGANISM: Escherichia coli ( MDRO) (O:ESCCOLMDRO) [place] Count >100,000 ORGANISM: Escherichia coli (MDRO) (O:ESCCOLMDRO) [place] Count >100,000 * This is a corrected result. * A prior result that was reported as final has been changed. Organism identifications changed from E. coli to E.coli MDRO Aerobic HAL Charge (NMIC56) SUSCEPTIBILITY ORGANISM: O:ESCCOLMDRO ANTIBIOTIC INTERPRETATION HAL Amikacin I 32 Amoxacillin/K Clavulanate I 1616/8 Ampicillin R >16 Ampicillin/Sulbactam R >16 Aztreonam S <4 Cefazolin I 16 Cefepime S <2 Ceftazidime S <1 Ceftazidime/Avibactam S <4 Ceftolozane/Tazobactam S <2 Ceftriaxone S <1 Cefuroxime S <4 Ciprofloxacin R >2 Ertapenem S <0.5 Gentamicin S <2 Levofloxacin R >4 Meropenem S <1 Meropenem/Vaborbactam S <2 Nitrofurantoin S <32 Piperacillin/Tazobactam S <8 Tetracycline R >8 Tigecycline S <2 Tobramycin S <2 Trimethoprim/Sulfamethoxazole S <0.5 Aerobic HAL Charge (NMIC56) SUSCEPTIBILITY ORGANISM: O:ESCCOLMDRO ANTIBIOTIC INTERPRETATION HAL Amikacin S <16 Amoxacillin/K Clavulanate I 1616/8 Ampicillin R >16 Ampicillin/Sulbactam R >16 Aztreonam S <4 Cefazolin I 16 Cefepime S <2 Ceftazidime S <1 Ceftazidime/Avibactam S <4 Ceftolozane/Tazobactam S <2 Ceftriaxone S <1 Cefuroxime S 8 Ciprofloxacin R >2 Ertapenem S <0.5 Gentamicin S <2 Levofloxacin R >4 Meropenem S <1 Meropenem/Vaborbactam S <2 Nitrofurantoin S <32 Piperacillin/Tazobactam S <8 Tetracycline R >8 Tigecycline S <2 Tobramycin S <2 Trimethoprim/Sulfamethoxazole S <0.5 S = SUSCEPTIBLE I = INTERMEDIATE R = RESISTANT BLANK = DATA NOT AVAILABLE, OR DRUG NOT ADVISABLE OR TESTED R* = RESISTANCE DUE TO EXTENDED SPECTRUM BETA-LACTAMASES ESBL = EXTENDED SPECTRUM BETA-LACTAMASE TFG = THYMIDINE-DEPENDENT STRAIN STEPHANE = BETA-LACTAMASE POSITIVE IB = INDUCIBLE BETA-LACTAMASE. APPEARS IN PLACE OF 'S' WITH SPECIES KNOWN TO POSSESS INDUCIBLE BETA-LACTAMASES. POTENTIALLY THEY MAY BECOME RESISTANT TO ALL B-LACTAM DRUGS. PERFORMED BY: [place] [address] LIAISON NIMISHA PALACIO M.D. Performed By: #### CUU #### [place] [id number] [facility] 36 Observed: 06/08/2024 2:38 PM Status: COMPLETED Source: [facility] There is no message TELEPHONE VISIT Observed: 05/03/2024 3:00 PM Status: COMPLETED Source: [facility] [id number] Laura Lawson 0 1950 F Date Provider Department Center 05/03/2024 [id number]-SGOYEZEKIEL PUENTE [facility]ICO[facility] [place] [facility] Family History Problem Relation Age of Onset JABARI disease Mother Heart attack Father Family Status - Relation Status Age at Mother Father Reason for Visit and Comments: PharmD Cardiology Consult [Other] PROGRESS Observed: 05/03/2024 3:00 PM Status: COMPLETED Source: [facility] PharmD Consult - Heart Failu re GDMT/CAD/Lipids Management Referring Provider: Dr. Sofiya Rosado Clinic Location: [facility] Most recent visit: 04/27/24 with Niraj San NP Insurance: Medicare Part D SUBJECTIVE/OBJECTIVE PharmD received consult from provider to assist with HF/CAD/Lipids management. Pertinent PMH includes CAD, HFrEF, HLD, T2DM Most recent EF: 20% (04/19/24) which worsened from previous. Most recent hospitalization: 04/19 - 04/22 for acute NSTEMI Current HF Medications: ACEi/ARB/ARNi: Entresto 97-103mg BID Beta sierra: Metoprolol succinate 50mg daily MRA: Spironolactone 25mg daily SGLT2i: Farxiga 10mg daily Loop diuretic: Torsemide 20mg daily Other Cardiology Related Medications: Apixaban 5mg BID Colchicine 0.6mg daily Ezetimibe 10mg daily Rosuvastatin 20mg daily Hydralazine 25mg BID Brilinta 90mg BID DM Medications: Toujeo 100 units daily - Patient not taking Insulin lispro - Patient on sliding scale, inconsistent dosing reported PERTINENT LABS/VITALS Lab Results Component Value Date GLUCOSE 111 (H) 04/22/2024 CALCIUM 9.4 04/22/2024 NA 138 04/22/2024 K 3.9 04/22/2024 CO2 27 04/22/2024 CL 106 04/22/2024 BUN 40 (H) 04/22/2024 CREATININE 1.18 04/22/2024 ASSESSMENT/PLAN HFrEF with EF 20% (04/19/24). Current regimen includes ARNi, BB, MRA, SGLT2i, and loop diuretic. Patient indicated for dose optimization of BB; however, patient previously reported sinus bradycardia while on higher doses of metoprolol. Additionally, Cardiology PharmD consulted for CV risk reduction with initiation of GLP1RA. T2DM: Patient indicated for optimization of DM management due to A1C of 9.7%, not at goal of < 7%. Currently on Farxiga 10mg daily and Trulicity 1.5mg once weekly which was increased at last appointment to 3mg once weekly. Patient did not tolerate; reported significant nausea and decreased appetite. Discussed options to go back to Trulicity 1.5mg once weekly and restarting her Toujeo; however, patient preferred to trial another GLP1RA. Will restart Trulicity 1.5mg once weekly in the meantime. - Restart Trulicity 1.5mg once weekly - Continue Farxiga 10mg daily - Will send new Rx for Ozempic 0.25mg once weekly. Reviewed side effects, mechanism of action, and administration of medication. PATIENT VERBALIZED UNDERSTANDING OF CARE PLAN: Yes PATIENT ADVISED TO CALL BACK WITH QUESTIONS, CONCERNS, OR CHANGE IN SYMPTOMS. Plan of care agreed upon with referring provider. Follow up with PharmD: 04/30/24 Phone Visit Follow up with Cardiology: 06/25/[address] Cristiana Kay, PharmD Cardiology Outpatient Clinical Pharmacist 05/03/24 PROGRESS Observed: 04/28/2024 12:58 PM Status: COMPLETED Source: [facility] PharmD Consult - Heart Failu re GDMT/CAD/Lipids Management Referring Provider: Dr. Sofiya Rosado Clinic Location: [facility] Most recent visit: 04/27/24 with Niraj San NP Insurance: Medicare Part D SUBJECTIVE/OBJECTIVE PharmD received consult from provider to assist with HF/CAD/Lipids management. Pertinent PMH includes CAD, HFrEF, HLD, T2DM Most recent EF: 20% (04/19/24) which worsened from previous. Most recent hospitalization: 04/19 - 04/22 for acute NSTEMI Current HF Medications: ACEi/ARB/ARNi: Entresto 97-103mg BID Beta sierra: Metoprolol succinate 50mg daily MRA: Spironolactone 25mg daily SGLT2i: Farxiga 10mg daily Loop diuretic: Torsemide 20mg daily Other Cardiology Related Medications: Apixaban 5mg BID Colchicine 0.6mg daily Ezetimibe 10mg daily Rosuvastatin 20mg daily Hydralazine 25mg BID Brilinta 90mg BID DM Medications: Toujeo 100 units daily - Patient not taking Insulin lispro - Patient on sliding scale, inconsistent dosing reported PERTINENT LABS/VITALS Lab Results Component Value Date GLUCOSE 111 (H) 04/22/2024 CALCIUM 9.4 04/22/2024 NA 138 04/22/2024 K 3.9 04/22/2024 CO2 27 04/22/2024 CL 106 04/22/2024 BUN 40 (H) 04/22/2024 CREATININE 1.18 04/22/2024 ASSESSMENT/PLAN HFrEF with EF 20% (04/19/24). Current regimen includes ARNi, BB, MRA, SGLT2i, and loop diuretic. Patient indicated for dose optimization of BB; however, patient previously reported sinus bradycardia while on higher doses of metoprolol. Additionally, Cardiology PharmD consulted for CV risk reduction with initiation of GLP1RA. Contacted patient and set-up education/CMR appointment with pharmacist. PATIENT VERBALIZED UNDERSTANDING OF CARE PLAN: Yes PATIENT ADVISED TO CALL BACK WITH QUESTIONS, CONCERNS, OR CHANGE IN SYMPTOMS. Plan of care agreed upon with referring provider. Follow up with PharmD: 04/30/24 Phone Visit Follow up with Cardiology: 06/25/[address] Cristiana Kay PharmD Cardiology Outpatient Clinical Pharmacist 04/27/24 DOCUMENTATION Observed: 04/28/2024 12:00 AM Status: COMPLETED Source: [facility] [id number] Laura Lawson 0 1950 F Date Provider Department Center 04/28/2024 [id number] AMBROSIO [facility] Family History Problem Relation Age of Onset JABARI disease Mother Heart attack Father Family Status - Relation Status Age at Mother Father Reason for Visit and Comments: PharmD Cardiology Consult [Other] FOLLOW-UP Observed: 04/27/2024 3:00 PM Status: COMPLETED Source: [facility] [id number] Laura Lawson 0 1950 F Date Provider Department Center 04/27/2024 166-NIRAJ SAN [facility] Family History Problem Relation Age of Onset JABARI disease Mother Heart attack Father Family Status - Relation Status Age at Mother Father Level of Service:50741 NC OFFICE/OUTPATIENT ESTABLISHED MOD MDM 30 MIN Reason for Visit and Comments: Congestive Heart Failure [127] Coronary Artery Disease [187] Hypertension [348949] 37 Observed: 04/27/2024 3:00 PM Status: COMPLETED Source: [facility] *Reduce metoprolol succinate to 1 tablet (50mg) daily. PROGRESS Observed: 04/27/2024 3:00 PM Status: COMPLETED Source: [facility] Cardiovascular Medicine [facility] SUBJECTIVE Chief Complaint Patient presents with Congestive Heart Failure Coronary Artery Disease Hypertension Laura Lawson is a 73 y.o. female here for hospital follow-up. Her roommate Latrice accompanied her today. HPI PMHx: resistant HTN, HFrEF (, DM II, KJ, HFrEF, CAD 04/27/2024 She has been fatigued since being home from the hospital. She thinks she has gotten her medications sorted out. She c/o cold sx's. Her leg swelling has been stable. She hasn't been monitoring her weight or fluid intake. Denies c/o CP, dyspnea, orthopnea, PND, dizziness/LH, palpitations, syncope. Discharge Summary (04/19/2024 - 04/22/2024 ) Final Discharge Diagnosis: Acute NSTEMI Acute on Chronic HF w/ Reduced EF Admission Diagnosis: Angina pectoris ([facility]) [I20.9] Hospital course: Alissa Lawson is a 73F who presented as a transfer from [facility] where she was admitted with ongoing pain left upper chest radiating to arm and neck associated with nausea vomiting. She denies any shortness of breath, dizziness, or heart palpitation at that time. The patient has history of coronary artery disease status post PCI with drug-eluting stent to LAD x 2 and right coronary artery done on 10/09/2023. She was noted to have high-grade calcific stenosis at the ostium of the LAD and high-grade stenosis in the right coronary artery as well at the time. Due to high risk for AK, she was transferred to [facility] for a heart cath with Impella assist. Due to her pain, she was started on IV heparin and IV nitro patient and stated 2 hours after she was started on the above medication her pain completely resolved. Due to high risk NSTEMI with rapidly rising troponin that peaked at 17.02 on presentation, she was brought to cardiac catheterization lab emergently. Angiogram showed 90% in-stent restenosis of the mid LAD which was treated with scoring balloon angioplasty. Complete MARÍA performed 04/19 revealed an EF of 20 % visually and increased left ventricular wall thickness. The patient ws placed on optimal med therapy for CAD s/p PCI and HFrEF per cardiology. She was placed on Aspirin and Brilinta for DAPT. She was placed on colchicine 0.6 mg once daily for anti-ISR treatment. She was placed on high intensity statin therapy and ezetimibe for lipid-lowering therapy and management of CAD. The patient is also currently on GDMT therapy for her HF including Farxiga, Aldactone, Entresto, and Toprol XL which has been managed and adjusted accordingly by cardiology. The patient currently has no pitting edema on physical exam and has reported significantly improved swelling in her lower extremities. The patient has a history of T2DM which was being managed appropriately with insulin lantus and humalog. She was found to have elevated liver enzymes on presentation which is now normal levels. She had a CTAP which was + for a renal mass, which will be followed up outpatient with her PCP for further workup. The patient's home medications were continued for her chronic back pain, RLS, and Gout without any concerns. The patient report improvement in her clinical course throughout her stay. She is hemodynamically stable on the floor. She denies any chest pain, andreports her SOB has improved significantly. We will follow any recommendations from cardiology and have her follow-up in the outpatient setting for her NSTEMI and Acute on Chronic HFrEF. All questions were answered and discussed with the patient. She is agreeable with the plan. Patient Active Problem List Diagnosis Allergic rhinitis Angiomyolipoma of kidney Benign essential hypertension Cerebrovascular disease Chronic foot ulcer ([facility]) Coronary atherosclerosis Decreased estrogen level Diabetic retinopathy associated with type 2 diabetes mellitus ([facility]) Diaphragmatic hernia Difficulty walking Dyspnea on exertion Generalized osteoarthritis Gout History of arthritis History of hysterectomy Hyperglycemia due to type 2 diabetes mellitus ([facility]) detention current use of insulin ([facility]) Low back pain Morbid obesity ([facility]) Neoplasm of uncertain behavior of kidney Obstructive sleep apnea syndrome Osteoarthritis of knee Osteoporosis Peripheral venous insufficiency Polyneuropathy due to type 2 diabetes mellitus ([facility]) Preoperative evaluation to rule out surgical contraindication Pulmonary function studies abnormal Pure hypercholesterolemia Renal mass Skin sensation disturbance Type 2 diabetes mellitus without complication ([facility]) Umbilical hernia Uric acid nephrolithiasis NSTEMI (non-ST elevated myocardial infarction) ([facility]) Acute exacerbation of CHF (congestive heart failure) ([facility]) COVID-19 Acquired spondylolisthesis Acute on chronic diastolic heart failure ([facility]) Coronary artery disease (CAD) excluded Diastolic dysfunction GERD (gastroesophageal reflux disease) History of carpal tunnel surgery of right wrist Hyperlipidemia Impaired mobility and endurance Localized edema Lumbar radiculopathy Morbid obesity with body mass index (BMI) of 45.0 to 49.9 in adult ([facility]) Paresthesia of skin Primary osteoarthritis of both knees S/P drug eluting coronary stent placement Ulcer of foot due to type 2 diabetes mellitus ([facility]) Pericardial effusion CAD in gambell artery Coronary artery disease Coronary artery disease involving gambell coronary artery of gambell heart with other form of angina pectoris ([facility]) Chronic systolic heart failure ([facility]) Combined forms of age-related cataract of both eyes History of lumbar fusion Nonexudative age-related macular degeneration Thyroid disease Angina pectoris ([facility]) Lumbar stenosis with neurogenic claudication Past Medical History: Diagnosis Date Abnormal ECG CHF (congestive heart failure) ([facility]/HCC) Coronary artery disease Diabetes mellitus (CMS/HCC) Gout [...] and are negative. OBJECTIVE Visit Vitals BP 138/68 (BP Location: Right wrist, Patient Position: Sitting) Pulse 53 Ht 1.575 m (5' 2 ) Wt 109 kg (241 lb) SpO2 97% BMI 44.08 kg/m??? OB Status Postmenopausal Smoking Status Never BSA 2.18 m??? Medications: Current Outpatient Medications: allopurinol (Zyloprim) 300 mg tablet, Take 300 mg by mouth in the morning., Disp: , Rfl: baclofen (Lioresal) 10 mg tablet, Take 10 mg by mouth at bedtime., Disp: , Rfl: dapagliflozin propanediol (Farxiga) 10 mg, Take 1 tablet (10 mg) by mouth in the morning for 94 doses. Do not start before July 08, 2023., Disp: 30 tablet, Rfl: 3 ezetimibe (Zetia) 10 mg tablet, Take 1 tablet (10 mg) by mouth in the morning., Disp: 90 tablet, Rfl: 3 hydrALAZINE (Apresoline) 25 mg tablet, Take 1 tablet (25 mg) by mouth in the morning and at bedtime., Disp: 180 tablet, Rfl: 3 insulin lispro (HumaLOG) 100 unit/mL injection, with breakfast, with lunch, and with evening meal. Patient reports taking three times daily 15 minutes before meals. Sliding scale, Disp: , Rfl: nitroglycerin (Nitrostat) 0.3 mg SL tablet, nitroglycerin 0.3 mg sublingual tablet, Disp: , Rfl: omeprazole (PriLOSEC) [address] capsule, , Disp: , Rfl: potassium chloride CR (Klor-Con M20) 20 mEq ER tablet, Take 1 tablet (20 mEq) by mouth with breakfast for 95 doses. Do not crush or chew., Disp: 30 tablet, Rfl: 3 pregabalin (Lyrica) 25 mg capsule, Take 25 mg by mouth two times daily., Disp: , Rfl: spironolactone (Aldactone) 25 mg tablet, Take 1 tablet (25 mg) by mouth once daily as directed for 360 doses., Disp: 90 tablet, Rfl: 3 torsemide (Demadex) 20 mg tablet, Take 20 mg by mouth in the morning., Disp: , Rfl: Toujeo Max U-300 SoloStar 300 unit/mL (3 mL) injection, Inject 100 Units under the skin in the morning., Disp: , Rfl: Trulicity 1.5 mg/0.5 mL pen injector, Inject 1.5 mg under the skin 1 (one) time per week., Disp: , Rfl: apixaban (Eliquis) 5 mg tablet, Take 1 tablet (5 mg) by mouth two times daily., Disp: 180 tablet, Rfl: 3 colchicine 0.6 mg tablet, Take 1 tablet (0.6 mg) by mouth in the morning for 360 doses., Disp: 90 tablet, Rfl: 3 metoprolol succinate XL (Toprol-XL) 50 mg 24 hr tablet, Take 1 tablet (50 mg) by mouth in the morning. Do not crush or chew., Disp: 90 tablet, Rfl: 3 rosuvastatin (Crestor) 20 mg tablet, Take 1 tablet (20 mg) by mouth in the morning for 360 doses., Disp: 90 tablet, Rfl: 3 sacubitril-valsartan (Entresto) 97-103 mg tablet, Take 1 tablet by mouth two times daily., Disp: 180 tablet, Rfl: 3 ticagrelor (Brilinta) 90 mg tablet, Take 1 tablet (90 mg) by mouth two times daily for 720 doses., Disp: 180 tablet, Rfl: 3 Physical Exam Constitutional: Appearance: She is well-developed. [...] murmur heard. No friction rub. No gallop. Comments: Right groin cath site soft, nontender, no hematoma, resolving ecchymosis Pulmonary: Effort: Pulmonary effort is normal. No [...] Behavior is cooperative. Judgment: Judgment normal. Labs: No results displayed because visit has over 200 results. Lab Results Component Value Date BNP 4,139 (H) 04/20/2024 Testing/Procedures: Encounter Date: 04/19/24 ECG 12 lead Result Value Ventricular Rate 85 QRS DURATION 142 QT Interval 404 QTC CALCULATION(BAZETT) 480 R-[place] 164 T Wave [place] 24 Impression Atrial fibrillation with premature ventricular or aberrantly conducted complexes Non-specific intra-ventricular conduction block Lateral infarct (cited on or before 21-APR-2024) Abnormal ECG When compared with ECG of 20-APR-2024 22:44, Nonspecific T wave abnormality no longer evident in Lateral Confirmed by Josh REDMAN, L.S. (2) on 04/22/2024 12:00:13 PM Cardiac cath conclusion 04/19/2024 PROCEDURE PHYSICIAN: Sofiya Rosado MD Clinical Presentation: 73 y.o. Female with history of CAD s/p multivessel PCI 10/2023 (complex PCI LAD and RCA), morbid obesity, HFrEF, and diabetes. She is admitted with chest pain and diagnosed with NSTEMI. Troponin peaked at 17 this morning. She is brought urgently to the cardiac cardiac cath rn for high risk NSTEMI. Final Impression: 1) 90% in-stent restenosis of the mid LAD s/p scoring balloon angioplasty 2) RCA stents are patent 3) LCX is diffusely diseased and stable in appearance compared with prior angiogram Plan: 1) optimal med therapy for CAD s/p PCI and HFrEF 2) Aspirin and Brilinta for DAPT 3) high intensity statin therapy and ezetimibe; lipid are at goal with LDL 41 mg/dL and non-HDL cholesterol 57 mg/dL 4) add colchicine 0.6 mg once daily for anti-ISR treatment; I had to change atorvastatin to rosuvastatin and carvedilol to metoprolol to avoid drug interactions with colchicine 5) patient has diabetes and CAD and BMI >40; she is strongly indicated for GLP-1 agonist, semaglutide, for treatment of diabetes and reduction of AK and CVA risk 6) referral to cardiac rehab 7) close outpatient follow up with [facility] 8) check Lp(a) and HbA1c and [id number] genotype (I placed orders for these tests) 9) if she has recurrent ISR in the future, then IVUS-guided drug coated balloon (DCB) angioplasty can be utilized ECHO 04/19/2024 Left Ventricle: The left ventricle is mildly enlarged. Global left ventricular systolic function is severely reduced. The EF is 20 % visually. Left ventricular wall thickness is increased. Regional wall motion abnormalities (see diagram). Right Ventricle: The right ventricle appears enlarged. Right ventricular systolic function appears reduced. Unable to assess right sided pressures due to lack of measurable tricuspid regurgitation. Left Atrium: The left atrium is mildly enlarged. Mitral Valve: Mild mitral regurgitation. Overall Conclusions: Due to suboptimal imaging Lumason contrast was administered for opacification and better delineation of endocardial borders Cardiac cath conclusion 10/08/23 PROCEDURE PHYSICIAN: Julito [...] risk intervention to the LAD and RCA. Procedure Performed: IVUS assessment of the LAD. [...] and drug eluting stenting of 70% instent restenosis in the proximal right coronary artery, with reduction of the stenosis to 0% by a Synergy XD 3.0 x 32 mm drug eluting stent, post dilated to 3.25 mm at high pressures. Placement of Impella CP for mechanical circulatory support during high risk percutaneous intervention. Left heart catheterization. Access into the left common femoral artery under ultrasound guidance. Limited left common femoral angiogram. Deployment of two 6F Proglide vascular closure devices for pre-closure in the left common femoral artery. Plan: Aspirin 81 mg daily for life. Dual antiplatelet therapy with Aspirin 81 mg daily for life and Clopidogrel 75 mg daily for 12 months at least, preferably longer given complex coronary artery disease, complex interventions and multiple long stents. Statin therapy for life. Maximize antianginal therapy. Guideline directed medical therapy for heart failure. Risk factor control. Follow up in Cardiology Clinic. ECHO 07/23/2023 CONCLUSION: 1. Moderate concentric left ventricular hypertrophy with moderately to severely reduced systolic function. LVEF is estimated at 30%. 2. Normal right ventricular size and systolic function. 3. Severe left atrial dilatation. 4. Mild mitral regurgitation. 5. Moderate circumferential pericardial effusion with no echocardiographic features of tamponade physiology. ECHO 05/17/2022 Normal LV systolic function, LVEF 60% Grade 1 diastolic dysfunction No significant valvular dysfunction No pericardial effusion 09/2020 Echo 08/18/2018 Stress test Cardiac cath 2014 Procedure: 1. Successful balloon angioplasty and bare-metal stenting of 90% distal right coronary artery stenosis using VeriFLEX 3.0 x 32 mm stent, postdilated to 3.0 mm at high pressures. 2. Successful balloon dilatation and bare-metal stenting of 80% proximal circumflex stenosis using a VeriFLEX 3.5 x 16 mm bare-metal stent, postdilated to 3.5 mm at high pressures. 3. Successful direct stenting of 80% mid left anterior descending stenosis using a VeriFLEX 3.0 x 28 mm bare-metal stent, postdilated to 3.25 mm at high pressures. 4. Successful balloon dilatation and bare-metal stenting of 80% proximal left anterior descending stenosis using a VeriFLEX 3.5 x 20 mm bare-metal stent. 5. Administration of intracoronary nitroglycerin. 6. Limited right femoral angiography. 7. Deployment of a vascular access closure device. 02/02/2003 Cardiac cath with PCI ASSESSMENT/PLAN: Diagnoses and all orders for this visit: Coronary artery disease involving gambell coronary artery of gambell heart with other form of angina pectoris ([facility]) - Transthoracic echo (TTE) complete; Future NSTEMI (non-ST elevated myocardial infarction) ([facility]) - rosuvastatin (Crestor) 20 mg tablet; Take 1 tablet (20 mg) by mouth in the morning for 360 doses. - ticagrelor (Brilinta) 90 mg tablet; Take 1 tablet (90 mg) by mouth two times daily for 720 doses. - colchicine 0.6 mg tablet; Take 1 tablet (0.6 mg) by mouth in the morning for 360 doses. - Transthoracic echo (TTE) complete; Future Chronic HFrEF (heart failure with reduced ejection fraction) ([facility]) - sacubitril-valsartan (Entresto) 97-103 mg tablet; Take 1 tablet by mouth two times daily. - metoprolol succinate XL (Toprol-XL) 50 mg 24 hr tablet; Take 1 tablet (50 mg) by mouth in the morning. Do not crush or chew. - Transthoracic echo (TTE) complete; Future Flutter-fibrillation ([facility]) - apixaban (Eliquis) 5 mg tablet; Take 1 tablet (5 mg) by mouth two times daily. - ECG 12 lead Mixed hyperlipidemia #Paroxysmal a.fib/flutter -New onset during recent admission, pt asymptomatic -EKG done today showing she is sinus bradycardia -Will reduce Toprol to 50mg daily. -Continue Eliquis 5mg BID #NSTEMI #CAD s/p PCI to LAD, RCA on 10/2023 and prior hx of 4 stents -cardiac cath 04/19/24 found ISR of recently placed LAD stent. She underwent PCI with scoring balloon angioplasty to open up the stenosis. -No complaints of chest pain today. -We switched plavix to Brilinta. We discontinued ASA due to starting Eliquis. -Colchicine 0.6mg daily added for anti-inflammatory benefits. -Atorvastatin switched to rosuvastatin, carvedilol to Toprol due to interactions with colchicine. -Stressed the importance of uninterrupted DAPT with patient. She states understanding. -Referral to cardiac rehab if her insurance will allow it as she also may need PT for her back. -Education printed on heart healthy diet #PVCs -Asymptomatic -On Toprol 50 mg daily. #Acute on chronic systolic heart failure -EF acutely reduced to 20%. Previous EF was down to 30% and it had recovered to 40-45%. -NYHA II -She appears euvolemic on exam. --GDMT: continue farxiga 10mg daily, Toprol 50mg daily, spironolactone 25mg daily, Entresto 97/103mg BID. -Discussed importance of taking torsemide daily along with daily weights and importance of 2L daily fluid allowance. -She currently has a LifeVest at home but she has had issues with it and plans to send it back. -Plan for follow-up ECHO in 6 weeks. -HF education provided #HTN -Currently controlled #HLD -Lipids controlled -LP(a) 88 -Recently switched to rosuvastatin 20mg daily. Also on zetia 10mg daily. #Type 2 diabetes mellitus - management per PCP *She would like to see a cyber policy and strategy planner for further dietary recommendations. Follow up in about 6 weeks (around 06/08/2024). Niraj San NP [facility] Cardiovascular Medicine PROGRESS Observed: 04/27/2024 3:00 PM Status: COMPLETED Source: [facility] Patient here for [place] [facility] [place]STEMI and HFrEF. She was discharged with a LifeVest and has decided not to wear it. She has a phone call apt scheduled with Ezekiel, cardiology pharmacist at [facility], to discuss Ozempic per Dr. Rosado. She did not bring updated med list from discharge. Denies chest pain, SOB, and bleeding on Eliquis. Review of Systems Constitutional: Positive for malaise/fatigue. Cardiovascular: Positive for leg swelling (improving). Respiratory: Positive for cough. All other systems reviewed and are negative. 36 Observed: 04/23/2024 5:41 PM Status: COMPLETED Source: [facility] Attempted a call back but th ere was no answer,. 36 Observed: 04/23/2024 12:36 PM Status: COMPLETED Source: [facility] Discharge date: 04/22/24 Call date: 04/23/24 Spoke with: patient HF Follow-up date: 04/27/24 Med reconciliation: pt declined Questions/Concerns: Pt declined to review home meds, but did confirm med changes. Pt is feeling better and denied any CP, but has slight SOB with exertion. Pt encouraged to monitor daily wt and BP. Pt wanted to know which OTC cough meds to take and requested story writer ask the follow up provider. Liner Installer reached out and is awaiting a response. Pt is aware of her follow up appt and has transportation to this appt. No other questions or concerns at this time. DOCUMENTATION Observed: 04/23/2024 12:00 AM Status: COMPLETED Source: [facility] [id number] Lulu,Laura A 0 1950 F Date Provider Department Center 04/23/2024 RUDDY DAMICO [facility] [place] [facility] Family History Problem Relation Age of Onset JABARI disease Mother Heart attack Father Family Status - Relation Status Age at Mother Father Reason for Visit and Comments: HF inpatient satisfaction survey sent. [Other] TELEPHONE Observed: 04/23/2024 12:00 AM Status: COMPLETED Source: [facility] [id number] Lulu,Laura A 0 1950 F Date Provider Department Center 04/23/2024 DANA DANIEL [facility] Medical C Family History Problem Relation Age of Onset JABARI disease Mother Heart attack Father Family Status - Relation Status Age at Mother Father Reason for Visit and Comments: post hospital call back [Other] TELEPHONE Observed: 04/23/2024 12:00 AM Status: COMPLETED Source: [facility] [id number] Lulu,Laura A 0 1950 F Date Provider Department Center 04/23/2024 RUDDY DAMICO [facility] [place] [facility] Family History Problem Relation Age of Onset JABARI disease Mother Heart attack Father Family Status - Relation Status Age at Mother Father Reason for Visit and Comments: HF post discharge call [Other] NURSNOTE Observed: 04/22/2024 6:32 PM Status: COMPLETED Source: [facility] AVS reviewed with patient, p atient verbalized understanding, wheelchair offered and accepted. Patient discharged via wheelchair by harman Begum without complications. PROGRESS Observed: 04/22/2024 4:20 PM Status: COMPLETED Source: [facility] Physical Therapy Physical Therapy Treatment Patient Name: Laura Lawson : 1950 Today's Date: 04/22/2024 Patient Active Problem List Diagnosis Allergic rhinitis Angiomyolipoma of kidney Benign essential hypertension Cerebrovascular disease Chronic foot ulcer ([facility]) Coronary atherosclerosis Decreased estrogen level Diabetic retinopathy associated with type 2 diabetes mellitus ([facility]) Diaphragmatic hernia Difficulty walking Dyspnea on exertion Generalized osteoarthritis Gout History of arthritis History of hysterectomy Hyperglycemia due to type 2 diabetes mellitus ([facility]) detention current use of insulin ([facility] Low back pain Morbid obesity ([facility]) Neoplasm of uncertain behavior of kidney Obstructive sleep apnea syndrome Osteoarthritis of knee Osteoporosis Peripheral venous insufficiency Polyneuropathy due to type 2 diabetes mellitus ([facility]) Preoperative evaluation to rule out surgical contraindication Pulmonary function studies abnormal Pure hypercholesterolemia Renal mass Skin sensation disturbance Type 2 diabetes mellitus without complication ([facility]) Umbilical hernia Uric acid nephrolithiasis NSTEMI (non-ST elevated myocardial infarction) ([facility]) Acute exacerbation of CHF (congestive heart failure) ([facility]) COVID-19 Acquired spondylolisthesis Acute on chronic diastolic heart failure ([facility]) Coronary artery disease (CAD) excluded Diastolic dysfunction GERD (gastroesophageal reflux disease) History of carpal tunnel surgery of right wrist Hyperlipidemia Impaired mobility and endurance Localized edema Lumbar radiculopathy Morbid obesity with body mass index (BMI) of 45.0 to 49.9 in adult ([facility]) Paresthesia of skin Primary osteoarthritis of both knees S/P drug eluting coronary stent placement Ulcer of foot due to type 2 diabetes mellitus ([facility]) Pericardial effusion CAD in gambell artery Coronary artery disease Coronary artery disease involving gambell coronary artery of gambell heart with other form of angina pectoris ([facility]) Chronic systolic heart failure ([facility]) Combined forms of age-related cataract of both eyes History of lumbar fusion Nonexudative age-related macular degeneration Thyroid disease Angina pectoris ([facility]) Time: 16:00-16:16 04/22/24 1620 PT Last Visit PT Received On 04/22/24 General Subjective Liner Installer returning to do step negotiation with pt see details of treatment session below : Activity Tolerance Endurance Stage III Precautions Medical Precautions portable telemetry , female matthew Pain Assessment Pain Location Hip (Right low back and R hip area .) Cognition Orientation Level Oriented X4 Static Standing Balance Static Standing-Balance Support Left upper extremity supported;Right upper extremity supported;With device Static Standing-Level of Assistance Distant supervision Static Standing-Comment/Number of Minutes no LOB Dynamic Standing Balance Dynamic Standing-Balance Support Left upper extremity supported;Right upper extremity supported;With device Dynamic Standing-Balance (while walking 40 ft in the room) Dynamic Standing Balance-Level of Assistance Distant supervision Dynamic Standing-Comments no LOB Ambulation Ambulation Yes Ambulation 1 Surface 1 Level tile Device 1 Rolling walker Assistance 1 Close supervision Comments/Distance (ft) 1 40 ft x 1 Stairs Stairs Yes Stairs Rails 1 Left (to simulate rail at home) Device 1 No device Assistance 1 Minimum assistance (25% tactile cues to help pt with steading her R LE when stepping down with her L LE and for dynamic balance on the steps) Quality of Stairs 1 pt's step height about 3 Comment/Number of Steps 1 4 steps Other Activity Pt did transfers Independent from sit to stand and stand to sit in bedside chair . Other Activity 2 pt back in bed with call light in place and [employer] life vest access services representative here to fit pt for life vest . Plan PT Discharge Recommendations Home Goals: Multi-Disciplinary Problems (from Physical Therapy) Active Problems Problem: PT Misc Start Date: 04/20/24 Goal Start Date Expected End Date End Date Patient to demonstrate the ability to complete all bed mobility independently with HOB flat 04/20/24 05/04/24 -- Goal Start Date Expected End Date End Date Patient to demonstrate the ability to complete all transfers independently with use of RW 04/20/24 05/04/24 -- Goal Start Date Expected End Date End Date Patient to demonstrate the ability to ambulate household distances with use of RW independently 04/20/24 05/04/24 -- Goal Start Date Expected End Date End Date Patient to demo the ability to maintain standing balance throughout all standing functional tasks with assistive device as needed 04/20/24 05/04/24 -- Goal Start Date Expected End Date End Date Patient to participate in BLE exercise to improve strength and limit effects of immobility related to hospital admission. 04/20/24 05/04/24 -- 30 Observed: 04/22/2024 3:47 PM Status: COMPLETED Source: [facility] The patient is Moderately St able - Low risk of patient condition declining or worsening The patient's goals for the shift include Go home The clinical goals for the shift include Hemodynamically stable, VSS, pain control, monito I&os Over the shift, the patient did make progress toward the following goals. Problem: Pain - Adult Goal: Verbalizes/displays adequate comfort level or baseline comfort level Outcome: Adequate for Discharge Problem: Safety - Adult Goal: Free from fall injury Outcome: Adequate for Discharge Flowsheets (Taken 04/22/2024799) Free from fall injury: Assess patient frequently for physical needs Problem: Discharge Planning Goal: Discharge to home or other facility with appropriate resources Outcome: Adequate for Discharge Flowsheets (Taken 04/22/2024799) Discharge to home or other facility with appropriate resources: Identify barriers to discharge with patient and caregiver Problem: Chronic Conditions and Co-morbidities Goal: Patient's chronic conditions and co-morbidity symptoms are monitored and maintained or improved Outcome: Adequate for Discharge Flowsheets (Taken 04/22/2024799) Care Plan - Patient's Chronic Conditions and Co-Morbidity Symptoms are Monitored and Maintained or Improved: Monitor and assess patient's chronic conditions and comorbid symptoms for stability, deterioration, or improvement Problem: Respiratory - Adult Goal: Achieves optimal ventilation and oxygenation Outcome: Adequate for Discharge Flowsheets (Taken 04/22/2024799) Achieves optimal ventilation and oxygenation: Assess for changes in respiratory status Problem: Cardiovascular - Adult Goal: Maintains optimal cardiac output and hemodynamic stability Outcome: Adequate for Discharge Flowsheets (Taken 04/22/2024799) Maintains optimal cardiac output and hemodynamic stability: Monitor blood pressure and heart rate Goal: Absence of cardiac dysrhythmias or at baseline Outcome: Adequate for Discharge Flowsheets (Taken 04/22/2024799) Absence of cardiac dysrhythmias or at baseline: Monitor cardiac rate and rhythm Problem: Skin/Tissue Integrity - Adult Goal: Skin integrity remains intact Outcome: Adequate for Discharge Flowsheets (Taken 04/22/2024 08) Skin integrity remains intact: Monitor for areas of redness and/or skin breakdown Goal: Incisions, wounds, or drain sites healing without S/S of infection Outcome: Adequate for Discharge Flowsheets (Taken 04/22/2024 08) Incisions, wounds, or drain sites healing without sign and symptoms of infection: ADMISSION and DAILY: Assess and document risk factors for pressure ulcer development Goal: Oral mucous membranes remain intact Outcome: Adequate for Discharge Flowsheets (Taken 04/22/2024799) Oral mucous membranes remain intact: Assess oral mucosa and hygiene practices Problem: Metabolic/Fluid and Electrolytes - Adult Goal: Glucose maintained within prescribed range Outcome: Adequate for Discharge Flowsheets (Taken 04/22/2024799) Glucose maintained within prescribed range: Monitor blood glucose as ordered Problem: Hematologic - Adult Goal: Maintains hematologic stability Outcome: Adequate for Discharge Flowsheets (Taken 04/22/2024799) Maintains hematologic stability: Assess for signs and symptoms of bleeding or hemorrhage POCT GLUCOSE METER UNSOLICIT ED RESULTS Collected: 04/22/2024 12:44 PM Status: UNK Source: [facility] Order Comment: Waived Testin g in the ED is performed under the ED CLIA certificate #[id number]. TYPE CODE TESTS RESULT OUT OF RANGE REFERENCE UNITS LAB 885 POCT GLUCOSE 267 High 70-105 mg/dL Result Comment: [email or web address] Performed By: #### [id number] #### [facility] ([facility]) [address] [place] [address] PROGRESS Observed: 04/22/2024 11:45 AM Status: COMPLETED Source: [facility] Physical Therapy Physical Therapy Treatment Patient Name: Laura Lawson : 1950 Today's Date: 04/22/2024 Patient Active Problem List Diagnosis Allergic rhinitis Angiomyolipoma of kidney Benign essential hypertension Cerebrovascular disease Chronic foot ulcer (CMS/HCC) Coronary atherosclerosis Decreased estrogen level Diabetic retinopathy associated with type 2 diabetes mellitus (CMS/HCC) Diaphragmatic hernia Difficulty walking Dyspnea on exertion Generalized osteoarthritis Gout History of arthritis History of hysterectomy Hyperglycemia due to type 2 diabetes mellitus (CMS/HCC) 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 (CMS/HCC) Low back pain Morbid obesity ([facility]) Neoplasm of uncertain behavior of kidney Obstructive sleep apnea syndrome Osteoarthritis of knee Osteoporosis Peripheral venous insufficiency Polyneuropathy due to type 2 diabetes mellitus ([facility]) Preoperative evaluation to rule out surgical contraindication Pulmonary function studies abnormal Pure hypercholesterolemia Renal mass Skin sensation disturbance Type 2 diabetes mellitus without complication ([facility]) Umbilical hernia Uric acid nephrolithiasis NSTEMI (non-ST elevated myocardial infarction) ([facility]) Acute exacerbation of CHF (congestive heart failure) ([facility]) COVID-19 Acquired spondylolisthesis Acute on chronic diastolic heart failure ([facility]) Coronary artery disease (CAD) excluded Diastolic dysfunction GERD (gastroesophageal reflux disease) History of carpal tunnel surgery of right wrist Hyperlipidemia Impaired mobility and endurance Localized edema Lumbar radiculopathy Morbid obesity with body mass index (BMI) of 45.0 to 49.9 in adult ([facility]) Paresthesia of skin Primary osteoarthritis of both knees S/P drug eluting coronary stent placement Ulcer of foot due to type 2 diabetes mellitus ([facility]) Pericardial effusion CAD in [place] artery Coronary artery disease Coronary artery disease involving [place] coronary artery of gamb[place] heart with other form of angina pectoris ([facility]) Chronic systolic heart failure ([facility]) Combined forms of age-related cataract of both eyes History of lumbar fusion Nonexudative age-related macular degeneration Thyroid disease Angina pectoris ([facility]) 04/22/24 1145 PT Last Visit PT Received On 04/22/24 General Subjective Pt willing to work with therapy , nursing cleared pt medically for therapy, pt supine in bed ready to get up and get going . See details of treatment session below : Precautions Medical Precautions portable telemetry Pain Assessment Pain Location Hip (Right hip and Right side of low back .) Cognition Orientation Level Oriented X4 Therapeutic Exercise Therapeutic Exercise Activity 1 Supine AAROM /AROM for bilat LE:'s hip and knee flexion , hip abduction adduction , SAQ 10 reps 1 set . Static Standing Balance Static Standing-Balance Support Left upper extremity supported;Right upper extremity supported;With device Static Standing-Level of Assistance Close supervision Static Standing-Comment/Number of Minutes no LOB Dynamic Standing Balance Dynamic Standing-Balance Support Left upper extremity supported;Right upper extremity supported;With device Dynamic Standing-Balance Reaching for objects;Reaching across midline;Lateral lean;Forward lean (pt had to reach for cones) Dynamic Standing Balance-Level of Assistance Close supervision Dynamic Standing-Comments No LOB Ambulation Ambulation Yes Ambulation 1 Surface 1 Level tile Device 1 Rolling walker Assistance 1 Close supervision Comments/Distance (ft) 1 40 ft x 1 Bed Mobility Bed Mobility Yes Bed Mobility 1 Bed Mobility From 1 Supine Bed Mobility Type 1 To Bed Mobility to 1 Short sit Level of Assistance 1 Independent Transfers Transfer Yes Transfer 1 Transfer From 1 Sit Transfer Type 1 To and from Transfer to 1 Stand Technique 1 Sit to stand;Stand to sit Transfer Device 1 rolling walker Transfer Level of Assistance 1 Independent Transfers 2 Transfer From 2 Stand Transfer Type 2 To Transfer to 2 Sit;Chair with arms Technique 2 Lateral (sidestepping and stepping backwards) Transfer Device 2 rolling walker Transfer Level of Assistance 2 Independent Other Activity Other Activity 2 pt in bedside chair with feet elevated and eating her breakfast call light beside her. Plan PT Discharge Recommendations Home Goals: Multi-Disciplinary Problems (from Physical Therapy) Active Problems Problem: [facility] Start Date: 04/20/24 Goal Start Date Expected End Date End Date Patient to demonstrate the ability to complete all bed mobility independently with HOB flat 04/20/24 05/04/24 -- Goal Start Date Expected End Date End Date Patient to demonstrate the ability to complete all transfers independently with use of RW 04/20/24 05/04/24 -- Goal Start Date Expected End Date End Date Patient to demonstrate the ability to ambulate household distances with use of RW independently 04/20/24 05/04/24 -- Goal Start Date Expected End Date End Date Patient to demo the ability to maintain standing balance throughout all standing functional tasks with assistive device as needed 04/20/24 05/04/24 -- Goal Start Date Expected End Date End Date Patient to participate in BLE exercise to improve strength and limit effects of immobility related to hospital admission. 04/20/24 05/04/24 -- DS Observed: 04/22/2024 11:04 AM Status: COMPLETED Source: [facility] Hospital Medicine Discharge Summary Final Discharge Diagnosis: Acute NSTEMI Acute on Chronic HF w/ Reduced EF Admission Diagnosis: Angina pectoris ([facility]) [I20.9] Hospital course: Alissa Lawson is a 73F who presented as a transfer from [facility] where she was admitted with ongoing pain left upper chest radiating to arm and neck associated with nausea vomiting. She denies any shortness of breath, dizziness, or heart palpitation at that time. The patient has history of coronary artery disease status post PCI with drug-eluting stent to LAD x 2 and right coronary artery done on 10/09/2023. She was noted to have high-grade calcific stenosis at the ostium of the LAD and high-grade stenosis in the right coronary artery as well at the time. Due to high risk for AK, she was transferred to [facility] for a heart cath with Impella assist. Due to her pain, she was started on IV heparin and IV nitro patient and stated 2 hours after she was started on the above medication her pain completely resolved. Due to high risk NSTEMI with rapidly rising troponin that peaked at 17.02 on presentation, she was brought to cardiac catheterization lab emergently. Angiogram showed 90% in-stent restenosis of the mid LAD which was treated with scoring balloon angioplasty. Complete MARÍA performed 04/19 revealed an EF of 20 % visually and increased left ventricular wall thickness. The patient ws placed on optimal med therapy for CAD s/p PCI and HFrEF per cardiology. She was placed on Aspirin and Brilinta for DAPT. She was placed on colchicine 0.6 mg once daily for anti-ISR treatment. She was placed on high intensity statin therapy and ezetimibe for lipid-lowering therapy and management of CAD. The patient is also currently on GDMT therapy for her HF including Farxiga, Aldactone, Entresto, and Toprol XL which has been managed and adjusted accordingly by cardiology. The patient currently has no pitting edema on physical exam and has reported significantly improved swelling in her lower extremities. The patient has a history of T2DM which was being managed appropriately with insulin lantus and humalog. She was found to have elevated liver enzymes on presentation which is now normal levels. She had a CTAP which was + for a renal mass, which will be followed up outpatient with her PCP for further workup. The patient's home medications were continued for her chronic back pain, RLS, and Gout without any concerns. The patient report improvement in her clinical course throughout her stay. She is hemodynamically stable on the floor. She denies any chest pain, andreports her SOB has improved significantly. We will follow any recommendations from cardiology and have her follow-up in the outpatient setting for her NSTEMI and Acute on Chronic HFrEF. All questions were answered and discussed with the patient. She is agreeable with the plan. Surgical, Invasive or Diagnostic Procedures Done During Admission: Cardiac Cath and MARÍA Consultations During Admission: Cardiology Dear Dr. Arsenio MD, Laura is advised to follow up with you within 1-2 weeks. Items to follow up in ambulatory setting: Medication adjustments. Renal mass found on CT Abdomen and pelvis, previous findings on 2013. Unsure if worked up. Follow-up with: Cardiology and CHF clinic Scheduled appointments: Future Appointments Date Time Provider Department Center 04/27/2024 2:20 PM Niraj San NP [facility] Your medication list START taking these medications Instructions Last Dose Given Next Dose Due apixaban 5 mg tablet Commonly known as: Eliquis Take 1 tablet (5 mg) by mouth two times daily. colchicine 0.6 mg tablet Start taking on: April 23, 2024 Take 1 tablet (0.6 mg) by mouth in the morning for 95 doses. metoprolol succinate XL 50 mg 24 hr tablet Commonly known as: Toprol-XL Start taking on: April 23, 2024 Take 1 tablet (50 mg) by mouth in the morning for 95 doses. Do not crush or chew. rosuvastatin 20 mg tablet Commonly known as: Crestor Start taking on: April 23, 2024 Take 1 tablet (20 mg) by mouth in the morning for 95 doses. ticagrelor 90 mg tablet Commonly known as: Brilinta Take 1 tablet (90 mg) by mouth two times daily for 192 doses. CHANGE how you take these medications Instructions Last Dose Given Next Dose Due potassium chloride CR 20 mEq ER tablet Commonly known as: Klor-Con M20 Start taking on: April 23, 2024 What changed: how much to take how to take this when to take this additional instructions Take 1 tablet (20 mEq) by mouth with breakfast for 95 doses. Do not crush or chew. sacubitril-valsartan 49-51 mg tablet Commonly known as: Entresto What changed: how much to take additional instructions Take 2 tablets by mouth two times daily for 191 doses. CONTINUE taking these medications Instructions Last Dose Given Next Dose Due allopurinol 300 mg tablet Commonly known as: Zyloprim baclofen 10 mg tablet Commonly known as: Lioresal dapagliflozin propanediol 10 mg Commonly known as: Farxiga Take 1 tablet (10 mg) by mouth in the morning for 94 doses. Do not start before July 08, 2023. ezetimibe 10 mg tablet Commonly known as: Zetia Take 1 tablet (10 mg) by mouth in the morning. hydrALAZINE 25 mg tablet Commonly known as: Apresoline Take 1 tablet (25 mg) by mouth in the morning and at bedtime. insulin lispro 100 unit/mL injection Commonly known as: HumaLOG nitroglycerin 0.3 mg SL tablet Commonly known as: Nitrostat omeprazole [address] capsule Commonly known as: PriLOSEC pregabalin 25 mg capsule Commonly known as: Lyrica spironolactone 25 mg tablet Commonly known as: Aldactone Take 1 tablet (25 mg) by mouth once daily as directed for 360 doses. torsemide 20 mg tablet Commonly known as: Demadex Toujeo Max U-300 SoloStar 300 unit/mL (3 mL) injection Generic drug: insulin glargine Trulicity 1.5 mg/0.5 mL pen injector Generic drug: dulaglutide STOP taking these medications aspirin 81 mg EC tablet atorvastatin 80 mg tablet Commonly known as: Lipitor carvedilol 6.25 mg tablet Commonly known as: Coreg clopidogrel 75 mg tablet Commonly known as: Plavix meloxicam 15 mg tablet Commonly known as: Mobic Where to Get Your Medications These medications were sent to [facility] - [address] [place] [address] [address] [facility] [place] [address], [facility] [address] apixaban 5 mg tablet colchicine 0.6 mg tablet metoprolol succinate XL 50 mg 24 hr tablet potassium chloride CR 20 mEq ER tablet rosuvastatin 20 mg tablet sacubitril-valsartan 49-51 mg tablet ticagrelor 90 mg tablet Laura is allergic to gabapentin and tramadol. Disposition: Home or Self Care () Discharge Condition: Stable Code Status: Full Code Diagnostic Results Hematology: Results from last 7 days Lab Units 04/22/2443804/21/24 045 WBC AUTO 10*3/uL 13.41* 17.29* HEMOGLOBIN g/dL 12.4 12.8 HEMATOCRIT % 40.3 40.2 MCV fL 92.4 91.0 PLATELETS AUTO 10*3/uL 411* 419* Chemistry: Results from last 7 days Lab Units 04/22/2443804/21/243 04/20/24 0709 SODIUM mmol/L 138 136 135* POTASSIUM mmol/L 3.9 3.8 4.0 CHLORIDE mmol/L 106 104 102 CO2 mmol/L 24 24 BUN mg/dL 40* 40* 30* CREATININE mg/dL 1.18 1.03 0.93 GLUCOSE mg/dL 111* 139* 182* MAGNESIUM mg/dL 2.3 2.2 -- CALCIUM mg/dL 9.4 9.7 9.9 Results from last 7 days Lab Units 04/22/2443804/21/243 04/20/24 0709 AST U/L 20 27 47* ALT U/L 23 31 42 ALK PHOS U/L 77 96 105* BILIRUBIN TOTAL mg/dL 0.6 0.6 1.0 BILIRUBIN DIRECT mg/dL -- -- 0.2 Test Results Pending At Discharge: Pending Labs Order Current Status Rapid influenza A/B PCR Collected (04/22/24 105) Respiratory virus PCR panel Collected (04/22/241057) [id number] Genotyping In process Lipoprotein A (LPA) In process Diet at the time of discharge: Regular diet/ heart healthy Activity: As tolerated Objective Blood pressure 111/54, pulse 80, temperature 36.4 ???C (97.5 ???F), temperature source Temporal, resp. rate (!) 8, height 1.575 m (5' 2.01 ), weight 110 kg (242 lb 6.4 oz), SpO2 95%. General: Alert and oriented x3. Cardiology: Normal rate, regular rhythm. Lungs: Clear to auscultation, no wheezes, rales or rhonchi, symmetric air entry. Abdomen: Soft, non tender, non distended. Extremities: No pitting edema. Neurology: No focal neuro deficit noted. Total time for discharge - review of data, exam, discussion with providers and care-team, med-rec and orders, arranging follow up, counseling of patient and/or family and documentation was 30 minutes. Signed Marichuy Grant MS4 Case was discussed with the Medical Student on 04/22/2024. I examined the patient with the student. I agree with the history, physical, assessment, and plan of care. I discussed the findings and therapeutic plan. I agree with the documentation, except for any updates below. Aram Jha MD Hospital Medicine 04/22/2024 11:04 AM CC: MD Arsenio PROGRESS Observed: 04/22/2024 9:22 AM Status: COMPLETED Source: [facility] Cardiology Progress Note Subjective F/U: chest pain, NSTEMI s/p balloon angioplasty HPI: Laura Lawson is a 73 y.o. female with past history remarkable for primary hypertension, type 2 diabetes mellitus, mixed hyperlipidemia, coronary artery disease status post PCI to LAD, RCA on 10/2023, chronic heart failure with improved ejection fraction 45% previously 30%, who presented to [facility] after transfer from [facility] where she initially presented with left-sided chest pain, found to have elevated high-sensitivity troponin and was transferred to [facility]. During my evaluation today, patient was complaining of chest pain left-sided in location, moderate in intensity, with no radiation. With no otherassociated symptoms. Her initial troponin was 17. Cardiology team consulted for further evaluation and management. She was taken Interval HPI: Patient seen and examined at bedside this AM. She c/o sore throat that started last night and a cough. Leg swelling is improving. Denies c/o CP, dyspnea, orthopnea, PND, dizziness/LH, palpitations, syncope. Objective Patient Vitals for the past 24 hrs: BP Temp Temp src Pulse Resp SpO2 Weight 04/22/24 1223 111/59 -- -- 83 -- -- -- 04/22/24 0943 111/54 -- -- 80 -- -- -- 04/22/24 0800 132/76 36.4 ???C (97.5 ???F) Temporal 67 (!) 8 95 % -- 04/22/24 0500 -- -- -- -- -- -- 110 kg (242 lb 6.4 oz) 04/22/24 0400 (!) 121/103 36.8 ???C (98.2 ???F) Temporal 76 11 98 % -- 04/22/24 0000 111/73 36.8 ???C (98.2 ???F) 72 12 96 % -- 04/21/24 2000 106/59 36.8 ???C (98.2 ???F) Temporal 83 22 98 % -- 04/21/24 2768 -- -- -- 83 21 99 % -- Current Facility-Administered Medications: allopurinol (Zyloprim) tablet 300 mg, 300 mg, oral, Daily, Aram Jha MD, 300 mg at 04/22/24 0943 apixaban (Eliquis) tablet 5 mg, 5 mg, oral, BID, Aram Jha MD, 5 mg at 04/22/24 0943 baclofen (Lioresal) tablet 10 mg, 10 mg, oral, Nightly, Анна Wright MD, 10 mg at 04/21/24 2115 colchicine tablet 0.6 mg, 0.6 mg, oral, Daily, Sofiya Rosado MD, 0.6 mg at 04/22/24 0943 dapagliflozin propanediol (Farxiga) tablet 10 mg, 10 mg, oral, Daily, Анна Wright MD, 10 mg at 04/22/24 0943 dyclonine throat lozenge 2 mg, 2 mg, Mouth/Throat, q2h PRN, Aram Jha MD, 2 mg at 04/22/24 1001 ezetimibe (Zetia) tablet 10 mg, 10 mg, oral, Daily, Анна Wright MD, 10 mg at 04/22/24 0943 furosemide (Lasix) tablet 40 mg, 40 mg, oral, q12h, Aram Jha MD, 40 mg at 04/22/24 0943 hydrALAZINE (Apresoline) tablet 25 mg, 25 mg, oral, BID, Анна Wright MD, 25 mg at 04/22/24 0943 insulin glargine (Lantus) injection vial 80 Units, 80 Units, subcutaneous, q AM, Анна Wright MD, 80 Units at 04/22/24 1000 insulin lispro (HumaLOG) injection 0-10 Units, 0-10 Units, subcutaneous, q6h FRANNY, Анна Wright MD, 6 Units at 04/22/24 1200 lidocaine (Lidoderm) 5 % patch 1 patch, 1 patch, topical (top), q24h, Aram Jha MD, 1 patch at 04/21/24 1643 metoprolol succinate XL (Toprol-XL) 24 hr tablet 25 mg, 25 mg, oral, Daily, Niraj San NP, 25 mg at 04/22/24 1223 metoprolol succinate XL (Toprol-XL) 24 hr tablet 50 mg, 50 mg, oral, Daily, Sofiya Rosado MD, 50 mg at 04/22/24 0943 nitroglycerin (Nitrostat) SL tablet 0.4 mg, 0.4 mg, sublingual, q5 min PRN, Анна Wright MD, 0.4 mg at 04/20/24 0724 potassium chloride CR (Klor-Con M20) ER tablet 20 mEq, 20 mEq, oral, Daily with breakfast, Анна Wright MD, 20 mEq at 04/22/24 0943 pregabalin (Lyrica) capsule 25 mg, 25 mg, oral, BID, Анна Wright MD, 25 mg at 04/22/24 0942 rosuvastatin (Crestor) tablet 20 mg, 20 mg, oral, Daily, Sofiya Rosado MD, 20 mg at 04/22/24 0942 sacubitril-valsartan (Entresto) 49-51 mg per tablet 2 tablet, 2 tablet, oral, BID, Niraj San NP, 2 tablet at 04/22/24 0943 Insert peripheral IV, , , Once AND Saline lock IV, , , Once AND sodium chloride flush 10 mL, 10 mL, intravenous, q8h PRN, Анна Wright MD spironolactone (Aldactone) tablet 25 mg, 25 mg, oral, Once Daily, Анна Wright MD, 25 mg at 04/22/24 0943 ticagrelor (Brilinta) tablet 90 mg, 90 mg, oral, BID, Анна Wright MD, 90 mg at 04/22/24 0942 Physical Exam Vitals reviewed. Constitutional: Appearance: Normal appearance. She is obese. HENT: Head: Normocephalic and atraumatic. Right Ear: External ear normal. Left Ear: External ear normal. Eyes: Extraocular Movements: Extraocular movements intact. Conjunctiva/sclera: Conjunctivae normal. Pupils: Pupils are equal, round, and reactive to light. Neck: Comments: Large neck girth Cardiovascular: Rate and Rhythm: Normal rate and regular rhythm. Pulses: Normal pulses. Heart sounds: Normal heart sounds. Comments: Left radial cath site soft, nontender, no hematoma, no bruit Pulmonary: Effort: Pulmonary effort is normal. Breath sounds: Normal breath sounds. Abdominal: General: Bowel sounds are normal. Palpations: Abdomen is soft. Musculoskeletal: Cervical back: Neck supple. Right lower leg: Edema present. Left lower leg: Edema present. Comments: +1 BLE edema Skin: General: Skin is warm and dry. Neurological: General: No focal deficit present. Mental Status: She is alert and oriented to person, place, and time. Psychiatric: Mood and Affect: Mood normal. Behavior: Behavior normal. Thought Content: Thought content normal. Judgment: Judgment normal. Lab Results Component Value Date NA 138 04/22/2024 K 3.9 04/22/2024 CL 106 04/22/2024 ANIONGAP 9 04/22/2024 BUN 40 (H) 04/22/2024 CREATININE 1.18 04/22/2024 CALCIUM 9.4 04/22/2024 MG 2.3 04/22/2024 PHOS 2.7 07/03/2023 Lab Results Component Value Date BILITOT 0.6 04/22/2024 BILIDIR 0.2 04/20/2024 ALKPHOS 77 04/22/2024 AST 20 04/22/2024 ALT 23 04/22/2024 PROT 5.7 (L) 04/22/2024 ALBUMIN 3.1 (L) 04/22/2024 Lab Results Component Value Date WBC 13.41 (H) 04/22/2024 RBC 4.36 04/22/2024 HGB 12.4 04/22/2024 HCT 40.3 04/22/2024 MCV 92.4 04/22/2024 MCH 28.4 04/22/2024 MCHC 30.8 (L) 04/22/2024 RDW 16.6 (H) 04/22/2024 NEUTOPHILPCT 73.1 (H) 04/22/2024 LYMPHOPCT 10.7 (L) 04/22/2024 MONOPCT 13.6 (H) 04/22/2024 EOSPCT 1.8 04/22/2024 BASOPCT 0.4 04/22/2024 NEUTROABS 9.8 (H) 04/22/2024 LYMPHSABS 1.93 09/10/2023 MONOSABS 1.04 (H) 09/10/2023 EOSABS 0.24 04/22/2024 BASOSABS 0.05 04/22/2024 PLT 411 (H) 04/22/2024 NRBC 0.0 04/22/2024 XR chest 1 view Result Date: 04/22/2024 * Small bilateral pleural effusions (left larger than right) with adjacent atelectasis. * No pulmonary edema or pneumothorax. * Cardiomegaly. Electronically signed: Jorje Neumann MD. No MRI results found for the past [address] results found for the past 24 hours Encounter Date: 04/19/24 ECG 12 lead Result Value Ventricular Rate 85 QRS DURATION 142 QT Interval 404 QTC CALCULATION(BAZETT) 480 R-[place] 164 T Wave [place] 24 Impression Atrial fibrillation with premature ventricular or aberrantly conducted complexes Non-specific intra-ventricular conduction block Lateral infarct (cited on or before 21-APR-2024) Abnormal ECG When compared with ECG of 20-APR-2024 22:44, Nonspecific T wave abnormality no longer evident in Lateral Confirmed by Josh REDMAN, L.S. (2) on 04/22/2024 12:00:13 PM Cardiac cath conclusion 04/19/2024 PROCEDURE PHYSICIAN: Sofiya Rosado MD Clinical Presentation: 73 y.o. Female with history of CAD s/p multivessel PCI 10/2023 (complex PCI LAD and RCA), morbid obesity, HFrEF, and diabetes. She is admitted with chest pain and diagnosed with NSTEMI. Troponin peaked at 17 this morning. She is brought urgently to the cardiac cardiac cath rn for high risk NSTEMI. Final Impression: 1) 90% in-stent restenosis of the mid LAD s/p scoring balloon angioplasty 2) RCA stents are patent 3) LCX is diffusely diseased and stable in appearance compared with prior angiogram Plan: 1) optimal med therapy for CAD s/p PCI and HFrEF 2) Aspirin and Brilinta for DAPT 3) high intensity statin therapy and ezetimibe; lipid are at goal with LDL 41 mg/dL and non-HDL cholesterol 57 mg/dL 4) add colchicine 0.6 mg once daily for anti-ISR treatment; I had to change atorvastatin to rosuvastatin and carvedilol to metoprolol to avoid drug interactions with colchicine 5) patient has diabetes and CAD and BMI >40; she is strongly indicated for GLP-1 agonist, semaglutide, for treatment of diabetes and reduction of AK and CVA risk 6) referral to cardiac rehab 7) close outpatient follow up with [facility] 8) check Lp(a) and HbA1c and [id number] genotype (I placed orders for these tests) 9) if she has recurrent ISR in the future, then IVUS-guided drug coated balloon (DCB) angioplasty can be utilized ECHO 04/19/2024 Left Ventricle: The left ventricle is mildly enlarged. Global left ventricular systolic function is severely reduced. The EF is 20 % visually. Left ventricular wall thickness is increased. Regional wall motion abnormalities (see diagram). Right Ventricle: The right ventricle appears enlarged. Right ventricular systolic function appears reduced. Unable to assess right sided pressures due to lack of measurable tricuspid regurgitation. Left Atrium: The left atrium is mildly enlarged. Mitral Valve: Mild mitral regurgitation. Overall Conclusions: Due to suboptimal imaging Lumason contrast was administered for opacification and better delineation of endocardial borders Assessment/Plan Principal Problem: Angina pectoris (CMS/HCC) #Paroxysmal a.fib/flutter -New onset, pt asymptomatic -Rate controlled -At this time, will focus on rate control since episode occurred in the acute setting. Will follow-up with patient in the clinic and if she remains in a.fib/flutter in 1 month then will proceed with cardioversion. -Continue Toprol -Continue Eliquis 5mg BID today for stroke prophylaxis. #NSTEMI #CAD s/p PCI to LAD, RCA on 10/2023 -cardiac cath 04/19/24 found ISR of recently placed LAD stent. She underwent PCI with scoring balloon angioplasty to open up the stenosis. -No complaints of chest pain today. -We switched plavix to Brilinta. We discontinued ASA due to starting Eliquis. -Colchicine 0.6mg daily added for anti-inflammatory benefits. -Atorvastatin switched to rosuvastatin, carvedilol to Toprol due to interactions with colchicine. -Stressed the importance of uninterrupted DAPT with patient. She states understanding. -Referral to cardiac rehab. #PVCs -Frequent PVCs today. Sometimes in bigeminy. -Will increase Toprol to 75mg daily. #Acute on chronic systolic heart failure -EF acutely reduced to 20%. Previous EF was down to 30% and it had recovered to 40-45%. -NYHA II -She appears euvolemic on exam. Can switch to oral diuretics. --GDMT: continue farxiga 10mg daily, Toprol 50mg daily, spironolactone 25mg daily. Will increase Entresto to 97/103mg BID. -Pt c/o issues with taking torsemide daily due to frequent urination. Increasing Entresto may help with some diuretic properties, but ultimately she needs to be on a loop diuretic as well. Will continue to reinforce compliance with her diuretic. -Reinforced importance of 2L daily fluid allowance, daily weights. -Given recent AK, frequent ectopy, and EF 20%, discussed discharging with [facility]. She is agreeable to this. Order placed and notified rep. -Plan for follow-up ECHO in 6 weeks. #HTN -Currently controlled #HLD -Lipids currently well controlled -LP(a) pending -Continue rosuvastatin 20mg daily No objections for discharge from cardiology standpoint. Plan discussed with patient, hospitalist, and cath lab Dr. Duran. Niraj San, SALES AGENT FI[employer] INSURANCE-RECREATION COUNSELOR [facility] Cardiovascular Medicine POCT GLUCOSE METER UNSOLICIT ED RESULTS Collected: 04/22/2024 5:45 AM Status: UNK Source: [facility] Order Comment: Waived Testin g in the ED is performed under the ED CLIA certificate #[id number]. TYPE CODE TESTS RESULT OUT OF RANGE REFERENCE UNITS LAB 885 POCT GLUCOSE 136 High 70-105 mg/dL Result Comment: bandar Performed By: #### [id number] #### [facility] (BEAKER) [address] [place] [address] COMPREHENSIVE METABOLIC PANEL Collected: 04/22/2024 4 :39 AM Status: UNK Source: [facility] TYPE CODE TESTS RESULT OUT OF RANGE REFERENCE UNITS LAB [id number] SODIUM (MMOL/L) IN SER/PLAS 138 136-145 mmol/L LAB [id number] POTASSIUM (MMOL/ L) IN SER/PLAS 3.9 3.5-5.1 mmol/L LAB [id number] CHLORIDE (MMOL/L ) IN SER/PLAS 106 98-107 mmol/L LAB [id number] CARBON DIOXIDE, TOTAL (MMOL/L) IN SER/PLAS 27 21-31 mmol/L LAB [id number] ANION GAP IN SER/PLAS 9 7-20 mmol/L LAB [id number] UREA NITROGEN (MG/DL) IN SER/PLAS 40 High 7-25 mg/dL LAB [id number] CREATININE (MG/D L) IN SER/PLAS 1.18 0.60-1.20 mg/dL LAB [id number] UREA NITROGEN/CREATININ E (MASS RATIO) IN SER/PLAS 33.9 NA LAB [id number] GLUCOSE (MG/DL) IN SER/PLAS 111 High 70-100 mg/dL LAB [id number] CALCIUM (MG/DL) IN SER/PLAS 9.4 8.6-10.3 mg/dL LAB [id number] ASPARTATE AMINOTRANSFERASE (SGOT) (U/L) IN SER/PLAS 20 13-39 U/L LAB [id number] ALANINE AMINOTRANSFERASE (SGPT) (U/L) IN SER/PLAS 23 7-52 U/L LAB [id number] ALKALINE PHOSPHATASE (U/L) IN SER/PLAS 77 34-104 U/L LAB [id number] PROTEIN (G/DL) I N SER/PLAS 5.7 Low 6.0-8.3 g/dL LAB 6840301 ALBUMIN (G/DL) I N SER/PLAS 3.1 Low 3.5-5.7 g/dL LAB [id number] BILIRUBIN TOTAL (MG/DL) IN SER/PLAS 0.6 0.3-1.0 mg/dL LAB [id number] GLOMERULAR FILTRATION RATE ML/MIN/1.73 SQ M.PREDICTED 49.4 Low >60.0 mL/min /1.73m *2 Result Comment: [facility]???s estimated glomerular filtration rate (eGFR) will [...] one group of individuals. Performed By: #### [id number] ### # [facility] (BEAKER) [address] [place] [address] MAGNESIUM Collected: 04/22/2024 4:39 AM Status: UN K Source: [facility] TYPE CODE TESTS RESULT OUT OF RANGE REFERENCE UNITS LAB [id number] MAGNESIUM (MG/DL) IN SER/PLAS 2.3 1.9-2.7 mg/dL Performed By: #### [id number] ## ## [facility] ([facility] [address] [place] [address] MANUAL DIFFERENTIAL Collected: 04/22/2024 4:[address] atus: UNK Source: [facility] TYPE CODE TESTS RESULT OUT OF RANGE REFERENCE UNITS LAB 1767 IMMATURE GRANULOCYTES/100 LEUKOCYTES IN BLOOD BY AUTOMATED COUNT 0.4 0.0-1.0 % LAB [id number] NEUTROPHILS (10*3/UL) IN BLOOD BY CALCULATION 9.8 High 1.6-7.6 10*3/uL LAB [id number] LYMPHOCYTES (10*3/UL) IN BLOOD BY CALCULATION 1.43 1.20-4.00 10*3/uL LAB [id number] MONOCYTES (10*3/UL) IN BLOOD BY CALCUATION 1.82 High 0.10-1.00 10*3/uL LAB 4885061 EOSINOPHILS (10*3/UL) IN BLOOD BY CALCULATION 0.24 0.00-0.50 10*3/uL LAB [id number] BASOPHILS (10*3/UL) IN BLOOD BY CALCULATION 0.05 0.00-0.20 10*3/uL LAB [id number] NEUTROPHILS/100 LEUKOCYTES IN BLOOD BY AUTOMATED COUNT 73.1 High 40.0-72.0 % LAB [id number] LYMPHOCYTES/100 LEUKOCYTES IN BLOOD BY AUTOMATED COUNT 10.7 Low 20.0-45.0 % LAB [id number] MONOCYTES/100 LEUKOCYTES IN BLOOD BY AUTOMATED COUNT 13.6 High 5.0-12.0 % LAB [id number] EOSINOPHILS/100 LEUKOCYTES IN BLOOD BY AUTOMATED COUNT 1.8 0.0-6.0 % LAB [id number] BASOPHILS/100 LEUKOCYTES IN BLOOD BY AUTOMATED COUNT 0.4 0.0-1.0 % LAB 2631 IMMATURE GRANULOCYTES (10*3/UL) IN BLOOD BY CALCULATION 0.05 0.00-0.20 10*3/uL Performed By: #### [id number] # ### [facility] (BEAKER) [address] [place] [address] CBC WITH AUTO DIFFERENTIAL Collected: 04/22/2024 4:39 AM Status: UNK Source: [facility] TYPE CODE TESTS RESULT OUT OF RANGE REFERENCE UNITS LAB [id number] LEUKOCYTES(10*3/ UL) IN BLOOD BY AUTOMATED COUNT 13.41 High 4.00-10.60 10*3/uL LAB [id number] ERYTHROCYTES (10*6/UL) IN BLOOD BY AUTOMATED COUNT 4.36 3.80-5.00 10*6/uL LAB 1960846 HEMOGLOBIN (G/DL) IN BLOOD 12.4 12.0-15.0 g/dL LAB [id number] HEMATOCRIT (%) IN BLOOD BY AUTOMATED COUNT 40.3 36.0-48.0 % LAB [id number] ERYTHROCYTE MEAN CORPUSCULAR VOLUME (FL) BY AUTOMATED COUNT 92.4 82.0-98.0 fL LAB [id number] ERYTHROCYTE MEAN CORPUSCULAR HEMOGLOBIN (PG) BY AUTOMATED COUNT 28.4 27.0-33.0 pg LAB [id number] ERYTHROCYTE MEAN CORPUSCULAR HEMOGLOBIN CONCENTRATION (G/DL) BY AUTOMATED 30.8 Low 32.0-35.0 g/dL LAB [id number] ERYTHROCYTE DISTRIBUTION WIDTH (RATIO) BY AUTOMATED COUNT 16.6 High 11.5-15.0 % LAB [id number] PLATELETS (10*3/UL) IN BLOOD AUTOMATED COUNT 411 High 150-400 10*3/uL LAB 254 NRBC (PER 100 WBCS) BY AUTOMATED COUNT 0.0 0 % Performed By: #### [id number] # ### [facility] ([facility]) [address] [place] [address] POCT GLUCOSE METER UNSOLICIT ED RESULTS Collected: 04/21/2024 11:55 PM Status: UNK Source: [facility] Order Comment: Waived Testin g in the ED is performed under the ED CLIA certificate #[id number]. TYPE CODE TESTS RESULT OUT OF RANGE REFERENCE UNITS LAB 885 POCT GLUCOSE 195 High 70-105 mg/dL Result Comment: bandar Performed By: #### [id number] #### [facility] ([facility]) [address] [place] [address] 30 Observed: 04/21/2024 11:06 PM Status: COMPLETED Source: [facility] The patient is Moderately St able - Low risk of patient condition declining or worsening The patient's goals for the shift include vital signs stable The clinical goals for the shift include no chest pain, vital signs stable Problem: Pain - Adult Goal: Verbalizes/displays adequate comfort level or baseline comfort level Outcome: Progressing Problem: Safety - Adult Goal: Free from fall injury Outcome: Progressing Problem: Cardiovascular - Adult Goal: Maintains optimal cardiac output and hemodynamic stability Outcome: Progressing Flowsheets (Taken 04/21/20241999) Maintains optimal cardiac output and hemodynamic stability: Monitor blood pressure and heart rate Problem: Metabolic/Fluid and Electrolytes - Adult Goal: Glucose maintained within prescribed range Outcome: Progressing Flowsheets (Taken 04/21/20241999) Glucose maintained within prescribed range: Monitor blood glucose as ordered POCT GLUCOSE METER UNSOLICIT ED RESULTS Collected: 04/21/2024 6:21 PM Status: UNK Source: [facility] Order Comment: Waived Testin g in the ED is performed under the ED CLIA certificate #[id number]. TYPE CODE TESTS RESULT OUT OF RANGE REFERENCE UNITS LAB 885 POCT GLUCOSE 277 High 70-105 mg/dL Result Comment: [email or web address] Performed By: #### [id number] #### [facility] (BEAKER) [address] [place] [address] PROGRESS Observed: 04/21/2024 5:33 PM Status: COMPLETED Source: [facility] Physical Therapy Physical Therapy Treatment Patient Name: Laura Lawson : 1950 Today's Date: 04/21/2024 Patient Active Problem List Diagnosis Allergic rhinitis Angiomyolipoma of kidney Benign essential hypertension Cerebrovascular disease Chronic foot ulcer (CMS/HCC) Coronary atherosclerosis Decreased estrogen level Diabetic retinopathy associated with type 2 diabetes mellitus (CMS/HCC) Diaphragmatic hernia Difficulty walking Dyspnea on exertion Generalized osteoarthritis Gout History of arthritis History of hysterectomy Hyperglycemia due to type 2 diabetes mellitus (CMS/HCC) detention current use of insulin (CMS/HCC) Low back pain Morbid obesity (CMS/HCC) Neoplasm of uncertain behavior of kidney Obstructive sleep apnea syndrome Osteoarthritis of knee Osteoporosis Peripheral venous insufficiency Polyneuropathy due to type 2 diabetes mellitus (CMS/HCC) Preoperative evaluation to rule out surgical contraindication Pulmonary function studies abnormal Pure hypercholesterolemia Renal mass Skin sensation disturbance Type 2 diabetes mellitus without complication ([facility]) Umbilical hernia Uric acid nephrolithiasis NSTEMI (non-ST elevated myocardial infarction) ([facility]) Acute exacerbation of CHF (congestive heart failure) ([facility]) COVID-19 Acquired spondylolisthesis Acute on chronic diastolic heart failure ([facility]) Coronary artery disease (CAD) excluded Diastolic dysfunction GERD (gastroesophageal reflux disease) History of carpal tunnel surgery of right wrist Hyperlipidemia Impaired mobility and endurance Localized edema Lumbar radiculopathy Morbid obesity with body mass index (BMI) of 45.0 to 49.9 in adult ([facility]) Paresthesia of skin Primary osteoarthritis of both knees S/P drug eluting coronary stent placement Ulcer of foot due to type 2 diabetes mellitus ([facility]) Pericardial effusion CAD in [place] artery Coronary artery disease Coronary artery disease involving [place] coronary artery of [place] heart with other form of angina pectoris ([facility]) Chronic systolic heart failure ([facility]) Combined forms of age-related cataract of both eyes History of lumbar fusion Nonexudative age-related macular degeneration Thyroid disease Angina pectoris ([facility]) Time : 16:02-16:40 04/21/24 1645 PT Last Visit PT Received On 04/21/24 General Subjective Pt had been cleared medically to receive therapy services per nursing , upon story writer entering the room pt was sitting in bedside chair , pt told story writer she had had a heart attack but was feeling better . See details of treatment session below : Activity Tolerance Endurance Stage III Precautions Medical Precautions hardwire telemetry , Pain Assessment Pain Location Hip (Right hip pt states she was having problems with R hip pain at home and was suppossed to be going for a pain management appt. in the future) Cognition Orientation Level Oriented X4 Therapeutic Activity Therapeutic Activity 1 Pt educated on signs and symptoms that the heart could be acting up and to contact 911. Pt educated on how a beta sierra affects a working HR and blunts the working HR response . Pt educated on what is a resting HR what is a working HR , How to use the ELIJAH RPE SCALE , pt left with copies of all education materials Static Standing Balance Static Standing-Balance Support Left upper extremity supported;Right upper extremity supported;With device Static Standing-Level of Assistance Close supervision;Distant supervision Static Standing-Comment/Number of Minutes pt inconsistently performing between these two assistance levels. Dynamic Standing Balance Dynamic Standing-Balance Support Left upper extremity supported;Right upper extremity supported;With device Dynamic Standing-Balance (walking 140 ft x 1 in hallways) Dynamic Standing Balance-Level of Assistance Close supervision;Distant supervision Dynamic Standing-Comments pt inconsistently performing between these two assistance levels. Ambulation Ambulation Yes Ambulation 1 Surface 1 Level tile Device 1 Rolling walker Assistance 1 Contact guard (15% tactile cues were to help pt hold up her brief when walking hallways, so it did not fall down) Quality of Gait 1 pt had good stance phase and swing phase of gait . Comments/Distance (ft) 1 140 ft x 1 , Resting HR 75 bpm working HR 89 bpm with pt being in atrial fibrillation Bed Mobility Bed Mobility Yes Bed Mobility 1 Bed Mobility From 1 Short sit Bed Mobility Type 1 To and from Bed Mobility to 1 Supine (HOB at a 15 degree angle along with 2 pillows to simulate bed pt has at home, with use of one siderail because pt has siderail at home .) Level of Assistance 1 Distant supervision Transfers Transfer Yes Transfer 1 Transfer From 1 Sit Transfer Type 1 To and from Transfer to 1 Stand Technique 1 Sit to stand;Stand to sit Transfer Device 1 rolling walker Transfer Level of Assistance 1 Independent Trials/Comments 1 4 trials Transfers 2 Transfer From 2 Stand Transfer Type 2 To Transfer to 2 Sit;Chair with arms;Bed Technique 2 Lateral (sidestepping and stepping backwards) Transfer Device 2 rolling walker Transfer Level of Assistance 2 Independent Other Activity Other Activity 2 pt back in bedside chair with feet elevated and call light in place Plan PT Discharge Recommendations Home Goals: Multi-Disciplinary Problems (from Physical Therapy) Active Problems Problem: PT Misc Start Date: 04/20/24 Goal Start Date Expected End Date End Date Patient to demonstrate the ability to complete all bed mobility independently with HOB flat 04/20/24 05/04/24 -- Goal Start Date Expected End Date End Date Patient to demonstrate the ability to complete all transfers independently with use of RW 04/20/24 05/04/24 -- Goal Start Date Expected End Date End Date Patient to demonstrate the ability to ambulate household distances with use of RW independently 04/20/24 05/04/24 -- Goal Start Date Expected End Date End Date Patient to demo the ability to maintain standing balance throughout all standing functional tasks with assistive device as needed 04/20/24 05/04/24 -- Goal Start Date Expected End Date End Date Patient to participate in BLE exercise to improve strength and limit effects of immobility related to hospital admission. 04/20/24 05/04/24 -- 04/21/24 1700 6 Clicks (Mobility) Help from another person turning from your back to your side while in a flat bed without using bedrails 3 Help from another person moving from lying on your back to sitting on the side of a flat bed without using bedrails 3 Help from another person moving to and from a bed to a chair (including a wheelchair) 4 Help from another person standing up from a chair using your arms (e.g. wheelchair or bedside chair) 4 Help from another person to walk in hospital room 3 Help from another person climbing 3-5 steps with a railing 3 Mobility 6 Clicks T-Score 20 30 Observed: 04/21/2024 5:28 PM Status: COMPLETED Source: [facility] The patient is Moderately St able - Low risk of patient condition declining or worsening The patient's goals for the shift include stable vitals and comfort The clinical goals for the shift include no chest pain stable vitals Over the shift, the patient did make progress toward the following goals. Barriers to progression include possible reocclusion of coronary arteries. Recommendations to address these barriers include monitor pt for new chest pain Problem: Pain - Adult Goal: Verbalizes/displays adequate comfort level or baseline comfort level Outcome: Progressing . 30 Observed: 04/21/2024 12:27 PM Status: COMPLETED Source: [facility] Daily Case Management Update Multidisciplinary rounds have been completed. Barriers to Discharge: Pending clinical course and improvement in clinical condition. Cardiology was consulted. New onset afib, spontaneously resolved. HFrEF. Continue GDMT for HF. Discharge plan is to return home when medically ready. Diet: Dietary Orders (From admission, onward) Start Ordered 04/21/24 1114 Regular Diet Heart Healthy/HTN, CABG,Stroke, (2gNA, low fat, low cholesterol); Diabetic Female (carb 45g/meal) Diet effective now Question Answer Comment Room Service? Yes Fat restriction: Heart Healthy/HTN, CABG,Stroke, (2gNA, low fat, low cholesterol) Carbohydrate restriction: Diabetic Female (carb 45g/meal) 04/21/24 1113 04/20/24 0732 Special Kitchen Request Once Comments: Please send pancake with diet syrup, scrambled eggs, turkey links, and grapes. Thank you!!! 04/20/24 0732 Physician Expected Discharge Date: 04/22/2024 Discharge Delays: PT Six Click Score: 18 OT Six Click Score: 21 PT Recommendations: Home OT Recommendations: Home New Consults: Therapy Orders (From admission, onward) Start Ordered 04/19/24536 OT eval and treat Until therapy completed Question: Reason for OT? Answer: increase adls assist 04/19/24 [id number]/24 05 PT eval and treat Until therapy completed Question: Reason for PT? Answer: decondtioing 04/19/24536 POCT GLUCOSE METER UNSOLICIT ED RESULTS Collected: 04/21/2024 12:06 PM Status: UNK Source: [facility] Order Comment: Waived Testin g in the ED is performed under the ED CLIA certificate #[id number]. TYPE CODE TESTS RESULT OUT OF RANGE REFERENCE UNITS LAB 885 POCT GLUCOSE 165 High 70-105 mg/dL Result Comment: [email or web address] Performed By: #### [id number] #### [facility] ([facility]) [address] [place] [address] PROGRESS Observed: 04/21/2024 9:44 AM Status: COMPLETED Source: [facility] Occupational Therapy Occupational Therapy Treatment Patient Name: Laura Lawson : 1950 Today's Date: 04/21/2024 Time In: 923 Time Out: 933 Problem List Patient Active Problem List Diagnosis Allergic rhinitis Angiomyolipoma of kidney Benign essential hypertension Cerebrovascular disease Chronic foot ulcer (CMS/HCC) Coronary atherosclerosis Decreased estrogen level Diabetic retinopathy associated with type 2 diabetes mellitus (CMS/HCC) Diaphragmatic hernia Difficulty walking Dyspnea on exertion Generalized osteoarthritis Gout History of arthritis History of hysterectomy Hyperglycemia due to type 2 diabetes mellitus (CMS/HCC) 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 (CMS/HCC) Low back [...] acid nephrolithiasis NSTEMI (non-ST elevated myocardial infarction) ([facility]) Acute exacerbation of CHF (congestive heart failure) ([facility]) COVID-19 Acquired spondylolisthesis Acute on chronic diastolic heart failure ([facility]) Coronary artery disease (CAD) excluded Diastolic dysfunction GERD (gastroesophageal reflux disease) History of carpal tunnel surgery of right wrist Hyperlipidemia Impaired mobility and endurance Localized edema Lumbar radiculopathy Morbid obesity with body mass index (BMI) of 45.0 to 49.9 in adult ([facility]) Paresthesia of skin Primary osteoarthritis of both knees S/P drug eluting coronary stent placement Ulcer of foot due to type 2 diabetes mellitus ([facility]) Pericardial effusion CAD in [place] artery Coronary artery disease Coronary artery disease involving [place] coronary artery of [place] heart with other form of angina pectoris ([facility]) Chronic systolic heart failure ([facility]) Combined forms of age-related cataract of both eyes History of lumbar fusion Nonexudative age-related macular degeneration Thyroid disease Angina pectoris ([facility]) Pain: Pain Assessment Pain Score: 3 (LBP/ chronic baseline) Objective General Visit Information: OT Last Visit OT Received On: 04/21/24 General Subjective: standing sink side with nursing finishing sponge bath upon arrival. reports she finished her self care this morning but agreeable to adl transfer and endurance Precautions Precautions Medical Precautions: fall Medical Precautions: fall risk, oxygen (2LO2) Cognition Cognition Overall Cognitive Status: Within Functional Limits General Assessment General Assessment Hearing: (mild lower [place]) Hand Dominance: Right Static Sitting Balance Static Sitting Balance Static Sitting-Level of Assistance: Independent Dynamic Sitting Balance Dynamic Sitting Balance Dynamic Sitting Balance-Level of Assistance: Close supervision Static Standing Balance Static Standing Balance Static Standing-Level of Assistance: Close supervision (rw) Dynamic Standing Balance Dynamic Standing Balance Dynamic Standing Balance-Level of Assistance: Close supervision (rw) Transfers Transfers Transfer: (standing in bathroom upon arrival , SBA with RW: 40 feet X2 with one minute rest between sets, indep with RW stand to sit) Activity Tolerance Activity Tolerance Endurance: Stage II Outcome Assessments AM-PAC 6 Clicks Putting on and taking off regular lower body clothing?: A Little (Min Assist/Contact Guard/Supervision) Bathing(Including washing,rinsing,drying)?: A Little (Min Assist/Contact Guard/Supervision) Toileting, which includes using the toilet,bedpan,or urinal?: A Little (Min Assist/Contact Guard/Supervision) Putting on and taking off regular upper body clothing?: None (Independent) Taking care of personal grooming such as brushing teeth?: None (Independent) Eating meals?: None (Independent) Total Score OT [facility]: 21 Assessment/Plan OT Assessment OT Impairments: Decreased ADL status, Decreased endurance, Decreased functional mobility OT Assessment/SEBASTIEN Summary: (progressing in adl endurance without O2 needed) Prognosis: Good Evaluation/Treatment Tolerance: Patient limited by fatigue Medical Staff Made Aware: Yes OT Education/Comments: (adl transfers and general home safety with good teach back) Plan Level of assist: 1 assist Treatment Interventions: ADL retraining, Functional transfer training, Endurance training, Patient/family training, Neuromuscular reeducation, Compensatory technique education OT Plan: Skilled OT OT Frequency: 5 times per week until discharge & PRN OT Discharge Recommendations: Home OT - Discharge Recommendations Placed: Yes OT Goals: Multi-Disciplinary Problems (from Occupational Therapy) Active Problems Problem: Balance Start Date: 04/20/24 Goal Start Date Expected End Date End Date LTG - Patient will maintain stand balance to allow for safe mobility 04/20/24 05/04/24 -- Problem: Bathing Start Date: 04/20/24 Goal Start Date Expected End Date End Date LTG - Patient will utilize adaptive techniques to bathe body with no assistance 04/20/24 05/04/24 -- Problem: Dressings Lower Extremities Start Date: 04/20/24 Goal Start Date Expected End Date End Date LTG - Patient will dress lower body with no assistance 04/20/24 05/04/24 -- Problem: Toileting Start Date: 04/20/24 Goal Start Date Expected End Date End Date LTG - Patient will utilize adaptive techniques/equipment to complete daily toileting tasks with no assistance 04/20/24 05/04/24 -- Problem: Transfers Start Date: 04/20/24 Goal Start Date Expected End Date End Date LTG - Patient will perform bed mobility with no assistance 04/20/24 05/04/24 -- Problem: OT Misc Start Date: 04/20/24 Goal Start Date Expected End Date End Date Mod I adl transfers 50 feet and standing 10 minutes 04/20/24 05/04/24 -- PROGRESS Observed: 04/21/2024 9:07 AM Status: COMPLETED Source: [facility] Case was discussed with the Medical Student on 04/21/2024. I examined the patient with the student. I agree with the history, physical, assessment, and plan of care. I discussed the findings and therapeutic plan. I agree with the documentation, except for any updates below. Afib/flutter overnight so was initiated on Eliquis. Cardiology following and dc'd ASA due to Eliquis. Entresto to be increased and will monitor kidney function in the next day. Discharge planning with diuretic. Aram Jha MD Hospital Medicine Daily Progress Note - 04/21/2024 9:08 AM; Room: [address] [place] [address] Admission: 04/19/2024 4:39 AM; Length of stay: 2 days THE HOSPITALIST TEAM PREFERS TO USE [employer] FOR NON-URGENT COMMUNICATION 7AM-7PM. IF I DO NOT RESPOND WITHIN 20 MINUTES OR URGENT MATTERS, PLEASE CALL THROUGH THE [employer] TECHNICIAN. FROM 7PM-7AM, PLEASE PAGE [phone](COVR). Code Status: Full Code Barriers to Discharge: medical stabilization, cardiology recommendations Expected Discharge Date: 1-2 days Discharge Destination: home Overview Patient is seen for evaluation and management of acute NSTEMI now 2 days s/p balloon angioplasty of LAD. Subjective Patient had an episode where she was found to be in afib overnight per her nurse. Cardiology was called, and the patient's afib spontaneously resolved in the room. The patient reports her swelling has decreased significantly. She endorses occasional SOB but reports that it has improved. She denies any chest pain or dizziness. Physical Exam Visit Vitals BP 141/85 (BP Location: Left arm, Patient Position: Lying) Pulse 75 Temp 36.7 ???C (98.1 ???F) (Temporal) Resp 18 Intake/Output Summary (Last 24 hours) at 04/21/2024 0908 Last data filed at 04/21/2024 0300 Gross per 24 hour Intake 1555 ml Output 1600 ml Net -45 ml Physical Exam Constitutional: Appearance: Normal appearance. She is obese. Cardiovascular: Rate and Rhythm: Normal rate and regular rhythm. Pulses: Normal pulses. Heart sounds: Normal heart sounds. No murmur heard. No friction rub. Skin: General: Skin is warm. Neurological: General: No focal deficit present. Mental Status: She is alert and oriented to person, place, and time. Mental status is at baseline. Estimated body mass index is 44.14 kg/m??? as calculated from the following: Height as of this encounter: 1.575 m (5' 2.01 ). Weight as of this encounter: 109 kg (241 lb 6.4 oz). Active Inpatient Problems Principal Problem: Angina pectoris ([facility]) Assessment and Plan Acute NSTEMI s/p ballon angioplasty -Continue Aspirin 81 mg every day, Brilinita 90mg BID, Crestor 20mg every day, Nitroglycerin PRN for chest pain. Lidocaine 5% patch for chest pain. -Continue to trend troponin levels, troponin 15.43--> 12.76 04/20 -Cardiology following, appreciate recommendations Acute on Chronic HF w/ Reduced EF -IV Lasix 40mg q12 hours. Discuss with cardiology on switching to oral diuretics. -Dapagiflozin 10mg QD -Toprol XL 50mg every day -Entresto oral 50mg BID -Aldactone 25mg oral every day -Continue GDMT for HF. Cardiology following, appreciate recommendations. Will follow-up outpatient for further optimization. -Appreciate cardiology recommendations for anticoagulation. T2DM -Glucose today 316-->107 04/21, continue to monitor -Insulin regimen with Lantus and Humalong. Will adjust accordingly on sliding scale Gout -Colchicine 0.6mg oral every day -Allopurinol 300mg oral every day currently being held Chronic Back pain -Home Lyrica 25mg BID -PT/OT consulted Restless Legs Syndrome -Oral Baclofen 10mg every day HTN -Hydralazine 25mg BID oral HLD -Zetia 10mg oral every day Elevated Liver Enzymes -CT Abdomen/Pelvis 04/20-*No focal liver mass or biliary ductal dilatation. *Cardiomegaly with severe coronary artery calcifications. 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 Consider renal mass protocol MRI for more detailed characterization. *Small bilateral pleural effusions with adjacent atelectasis -Will follow-up outpatient for further evaluation of renal mass. -Continue to trend liver labs. AST 42--->27 and ALT 42-->31, both are currently down-trending. Tbili is normal at 0.6 1113 Malnutrition Attestation: I attest to the following: I have personally seen this patient. The patient has been assessed for malnutrition as documentation above, and based on the criteria set by the Academy of Nutrition and Dietetics and the [place] [employer]al and Parenteral [employer], meets the diagnosis for malnutrition. A care plan has been established for this patient. VTE Prophylaxis: None Scheduled Meds [Held by provider] allopurinol, 300 mg, oral, Daily aspirin, 81 mg, oral, Daily baclofen, 10 mg, oral, Nightly colchicine, 0.6 mg, oral, Daily dapagliflozin propanediol, 10 mg, oral, Daily ezetimibe, 10 mg, oral, Daily furosemide, 40 mg, intravenous, q12h hydrALAZINE, 25 mg, oral, BID insulin glargine, 80 Units, subcutaneous, q AM insulin lispro, 0-10 Units, subcutaneous, q6h FRANNY lidocaine, 1 patch, topical (top), q24h metoprolol succinate XL, 50 mg, oral, Daily potassium chloride CR, 20 mEq, oral, Daily with breakfast pregabalin, 25 mg, oral, BID rosuvastatin, 20 mg, oral, Daily sacubitril-valsartan, 1 tablet, oral, BID spironolactone, 25 mg, oral, Once Daily ticagrelor, 90 mg, oral, BID Pertinent Investigations Hematology: Results from last 7 days Lab Units 04/21/24 0453 04/20/24 0709 WBC AUTO 10*3/uL 17.29* 21.55* HEMOGLOBIN g/dL 12.8 12.4 HEMATOCRIT % 40.2 40.1 MCV fL 91.0 91.8 PLATELETS AUTO 10*3/uL 419* 369 Chemistry: Results from last 7 days Lab Units 04/21/24 0453 04/20/24 0709 04/19/24 0602 SODIUM mmol/L 136 135* 134* POTASSIUM mmol/L 3.8 4.0 4.4 CHLORIDE mmol/L 104 102 102 CO2 mmol/L BUN mg/dL 40* 30* 26* CREATININE mg/dL 1.03 0.93 0.90 GLUCOSE mg/dL 139* 182* 273* CALCIUM mg/dL 9.7 9.9 9.8 Results from last 7 days Lab Units 04/21/24 0453 04/20/24 0709 04/19/24 0602 AST U/L 27 47* 77* ALT U/L 31 42 63* ALK PHOS U/L 96 105* 107* BILIRUBIN TOTAL mg/dL 0.6 1.0 1.0 BILIRUBIN DIRECT mg/dL -- 0.2 -- Results from last 7 days Lab Units 04/21/24 0547 04/21/24 0017 04/20/24 1736 04/20/24 1145 04/20/24 0645 04/20/24 0011 POCT GLUCOSE mg/dL 177* 226* 292* 316* 176* 175* Historical Values: (Includes values prior to this admission) Lab Results Component Value Date TSH 0.64 04/19/2024 HDL 50 04/19/2024 LDL 57 04/19/2024 No results found for: [id number] , IRON , TIBC , C3 , C4 , JEREMIAH , CANCA , ASO , PSA , CEA , CA125 , CA199 , AFP , CA153 Imaging Discharge Planning Expected Discharge Disposition: Home or Self Care () PT Discharge Recommendations: Home OT Discharge Recommendations: Home Signed Marichuy Grant, MS4 Hospital Medicine 04/21/2024 9:08 AM PROGRESS Observed: 04/21/2024 9:02 AM Status: COMPLETED Source: [facility] discharge planning: to retur n home with family Patient came to [facility] 04/19/2024; H&P stating transferred from [facility] where she was admitted with ongoing pain left upper chest radiating to arm and neck associated with nausea vomiting - Occupational Therapy Evaluation recommending discharge to Home - Physical Therapy Evaluation recommending discharge to Home - LDAs noting wounds: pressure injury sacrum, diabetic ulcer toe - MAR noting Lantus (diabetes medication), Brilinta - follow up with [facility] on AVS barriers: - pending clinical course 04/21/24 0901 Referral Data 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 No Patient's goal for discharge return home Does the patient need discharge transport arranged? No (family) PROGRESS Observed: 04/21/2024 8:47 AM Status: COMPLETED Source: [facility] Cardiology Progress Note Subjective F/U: chest pain, NSTEMI s/p balloon angioplasty HPI: Laura Lawson is a 73 y.o. female with past history remarkable for primary hypertension, type 2 diabetes mellitus, mixed hyperlipidemia, coronary artery disease status post PCI to LAD, RCA on 10/2023, chronic heart failure with improved ejection fraction 45% previously 30%, who presented to [facility] after transfer from [facility] where she initially presented with left-sided chest pain, found to have elevated high-sensitivity troponin and was transferred to [facility]. During my evaluation today, patient was complaining of chest pain left-sided in location, moderate in intensity, with no radiation. With no otherassociated symptoms. Her initial troponin was 17. Cardiology team consulted for further evaluation and management. She was taken Interval HPI: Patient seen and examined at bedside this AM. Last night, pt went into a.fib. This is new for her. She was in a.flutter during exam. Her chest pain is better today. She had some orthopnea this AM, improved with sitting up. Leg swelling is improving. Denies dizziness/LH, palpitations, syncope. Objective Patient Vitals for the past 24 hrs: BP Temp Temp src Pulse Resp SpO2 Weight 04/21/24 1242 106/62 -- -- 79 15 -- -- 04/21/24 0800 141/85 36.7 ???C (98.1 ???F) Temporal 75 18 97 % -- 04/21/24 0400 126/78 36.3 ???C (97.3 ???F) -- 78 20 94 % 109 kg (241 lb 6.4 oz) 04/21/24 0357 -- -- -- -- -- 95 % -- 04/21/24 0000 130/80 36.7 ???C (98 ???F) -- 80 12 96 % -- 04/20/24 2205 122/72 -- -- 82 18 98 % -- 04/20/242054 98/69 36.7 ???C (98.1 ???F) -- 91 22 93 % -- Current Facility-Administered Medications: allopurinol (Zyloprim) tablet 300 mg, 300 mg, oral, Daily, Aram Jha MD, 300 mg at 04/21/24 1307 apixaban (Eliquis) tablet 5 mg, 5 mg, oral, BID, Aram Jha MD, 5 mg at 04/21/24 1107 aspirin chewable tablet 81 mg, 81 mg, oral, Daily, Анна Wright MD, 81 mg at 04/21/2442 baclofen (Lioresal) tablet 10 mg, 10 mg, oral, Nightly, Анна Wright MD, 10 mg at 04/20/242052 colchicine tablet 0.6 mg, 0.6 mg, oral, Daily, Sofiya Rosado MD, 0.6 mg at 04/21/24941 dapagliflozin propanediol (Farxiga) tablet 10 mg, 10 mg, oral, Daily, Анна Wright MD, 10 mg at 04/21/2442 ezetimibe (Zetia) tablet 10 mg, 10 mg, oral, Daily, Анна Wright MD, 10 mg at 04/21/24941 furosemide (Lasix) injection 40 mg, 40 mg, intravenous, q12h, Aram Jha MD, 40 mg at 04/21/24 0844 hydrALAZINE (Apresoline) tablet 25 mg, 25 mg, oral, BID, Анна Wright MD, 25 mg at 04/21/24 09 insulin glargine (Lantus) injection vial 80 Units, 80 Units, subcutaneous, q AM, Анна Wright MD, 80 Units at 04/21/24 0941 insulin lispro (HumaLOG) injection 0-10 Units, 0-10 Units, subcutaneous, q6h FRANNY, Анна Wright MD, 2 Units at 04/21/24 1306 lidocaine (Lidoderm) 5 % patch 1 patch, 1 patch, topical (top), q24h, Aram Jha MD, 1 patch at 04/20/24 1714 metoprolol succinate XL (Toprol-XL) 24 hr tablet 50 mg, 50 mg, oral, Daily, Sofiya Rosado MD, 50 mg at 04/21/24 0941 nitroglycerin (Nitrostat) SL tablet 0.4 mg, 0.4 mg, sublingual, q5 min PRN, Анна Wright MD, 0.4 mg at 04/20/24 0724 potassium chloride CR (Klor-Con M20) ER tablet 20 mEq, 20 mEq, oral, Daily with breakfast, Анна Wright MD, 20 mEq at 04/21/24 0844 pregabalin (Lyrica) capsule 25 mg, 25 mg, oral, BID, Анан Wright MD, 25 mg at 04/21/24 0941 rosuvastatin (Crestor) tablet 20 mg, 20 mg, oral, Daily, Sofiya Rosado MD, 20 mg at 04/21/24 0941 sacubitril-valsartan (Entresto) 49-51 mg per tablet 2 tablet, 2 tablet, oral, BID, Niraj San NP Insert peripheral IV, , , Once AND Saline lock IV, , , Once AND sodium chloride flush 10 mL, 10 mL, intravenous, q8h PRN, Анна Wright MD spironolactone (Aldactone) tablet 25 mg, 25 mg, oral, Once Daily, Анна Wright MD, 25 mg at 04/21/24 0844 ticagrelor (Brilinta) tablet 90 mg, 90 mg, oral, BID, Анна Wright MD, 90 mg at 04/21/24 0941 Physical Exam Vitals reviewed. Constitutional: Appearance: Normal appearance. She is obese. HENT: Head: Normocephalic and atraumatic. Right Ear: External ear normal. Left Ear: External ear normal. Eyes: Extraocular Movements: Extraocular movements intact. Conjunctiva/sclera: Conjunctivae normal. Pupils: Pupils are equal, round, and reactive to light. Neck: Comments: Large neck girth Cardiovascular: Rate and Rhythm: Normal rate and regular rhythm. Pulses: Normal pulses. Heart sounds: Normal heart sounds. Comments: Left radial cath site soft, nontender, no hematoma, no bruit Pulmonary: Effort: Pulmonary effort is normal. Breath sounds: Normal breath sounds. Abdominal: General: Bowel sounds are normal. Palpations: Abdomen is soft. Musculoskeletal: Cervical back: Neck supple. Right lower leg: Edema present. Left lower leg: Edema present. Comments: +2 BLE edema Skin: General: Skin is warm and dry. Neurological: General: No focal deficit present. Mental Status: She is alert and oriented to person, place, and time. Psychiatric: Mood and Affect: Mood normal. Behavior: Behavior normal. Thought Content: Thought content normal. Judgment: Judgment normal. Lab Results Component Value Date NA 136 04/21/2024 K 3.8 04/21/2024 CL 104 04/21/2024 ANIONGAP 12 04/21/2024 BUN 40 (H) 04/21/2024 CREATININE 1.03 04/21/2024 CALCIUM 9.7 04/21/2024 MG 2.2 04/21/2024 PHOS 2.7 07/03/2023 Lab Results Component Value Date BILITOT 0.6 04/21/2024 BILIDIR 0.2 04/20/2024 ALKPHOS 96 04/21/2024 AST 27 04/21/2024 ALT 31 04/21/2024 PROT 6.1 04/21/2024 ALBUMIN 3.3 (L) 04/21/2024 Lab Results Component Value Date WBC 17.29 (H) 04/21/2024 RBC 4.42 04/21/2024 HGB 12.8 04/21/2024 HCT 40.2 04/21/2024 MCV 91.0 04/21/2024 MCH 29.0 04/21/2024 MCHC 31.8 (L) 04/21/2024 RDW 16.6 (H) 04/21/2024 NEUTOPHILPCT 85.4 (H) 04/21/2024 LYMPHOPCT 5.3 (L) 04/21/2024 MONOPCT 9.3 04/21/2024 EOSPCT 0.0 04/21/2024 BASOPCT 0.0 04/21/2024 NEUTROABS 14.8 (H) 04/21/2024 LYMPHSABS 1.93 09/10/2023 MONOSABS 1.04 (H) 09/10/2023 EOSABS 0.00 04/21/2024 BASOSABS 0.00 04/21/2024 PLT 419 (H) 04/21/2024 NRBC 0.0 04/21/2024 No X-ray results found for the past 24 hoursNo MRI results found for the past [address] results found for the past 24 hours Encounter Date: 04/19/24 ECG 12 lead Result Value Ventricular Rate 87 QRS DURATION 146 QT Interval 414 QTC CALCULATION(BAZETT) 498 R-[place] [address] [place] -41 Impression Atrial fibrillation with premature ventricular or aberrantly conducted complexes Non-specific intra-ventricular conduction block Anterolateral and high lateral infarct, old Abnormal ECG Confirmed by Todd Phelan ([id number]) on 04/21/2024 12:50:33 PM Cardiac cath conclusion 04/19/2024 PROCEDURE PHYSICIAN: Sofiya Rosado MD Clinical Presentation: 73 y.o. Female with history of CAD s/p multivessel PCI 10/2023 (complex PCI LAD and RCA), morbid obesity, HFrEF, and diabetes. She is admitted with chest pain and diagnosed with NSTEMI. Troponin peaked at 17 this morning. She is brought urgently to the cardiac cardiac cath rn for high risk NSTEMI. Final Impression: 1) 90% in-stent restenosis of the mid LAD s/p scoring balloon angioplasty 2) RCA stents are patent 3) LCX is diffusely diseased and stable in appearance compared with prior angiogram Plan: 1) optimal med therapy for CAD s/p PCI and HFrEF 2) Aspirin and Brilinta for DAPT 3) high intensity statin therapy and ezetimibe; lipid are at goal with LDL 41 mg/dL and non-HDL cholesterol 57 mg/dL 4) add colchicine 0.6 mg once daily for anti-ISR treatment; I had to change atorvastatin to rosuvastatin and carvedilol to metoprolol to avoid drug interactions with colchicine 5) patient has diabetes and CAD and BMI >40; she is strongly indicated for GLP-1 agonist, semaglutide, for treatment of diabetes and reduction of AK and CVA risk 6) referral to cardiac rehab 7) close outpatient follow up with [facility] 8) check Lp(a) and HbA1c and [id number] genotype (I placed orders for these tests) 9) if she has recurrent ISR in the future, then IVUS-guided drug coated balloon (DCB) angioplasty can be utilized ECHO 04/19/2024 Left Ventricle: The left ventricle is mildly enlarged. Global left ventricular systolic function is severely reduced. The EF is 20 % visually. Left ventricular wall thickness is increased. Regional wall motion abnormalities (see diagram). Right Ventricle: The right ventricle appears enlarged. Right ventricular systolic function appears reduced. Unable to assess right sided pressures due to lack of measurable tricuspid regurgitation. Left Atrium: The left atrium is mildly enlarged. Mitral Valve: Mild mitral regurgitation. Overall Conclusions: Due to suboptimal imaging Lumason contrast was administered for opacification and better delineation of endocardial borders Assessment/Plan Principal Problem: Angina pectoris (CMS/HCC) #Paroxysmal a.fib/flutter -New onset, pt asymptomatic -Rate controlled -At this time, will focus on rate control since episode occurred in the acute setting. Will follow-up with patient in the clinic and if she remains in a.fib/flutter in 1 month then will proceed with cardioversion. -Started on Eliquis 5mg BID today for stroke prophylaxis. #NSTEMI #CAD s/p PCI to LAD, RCA on 10/2023 -cardiac cath 04/19/24 found ISR of recently placed LAD stent. She underwent PCI with scoring balloon angioplasty to open up the stenosis. -Today she reports she is feeling better. Atypical chest pain is improved. Cardiac testing was unremarkable. -We switched plavix to Brilinta. Will discontinue ASA due to starting Eliquis. -Colchicine 0.6mg daily added for anti-inflammatory benefits. -Atorvastatin switched to rosuvastatin, carvedilol to Toprol due to interactions with colchicine. -Stressed the importance of uninterrupted DAPT with patient. She states understanding. -Referral to cardiac rehab. #Acute on chronic systolic heart failure -EF acutely reduced to 20%. Previous EF was down to 30% and it had recovered to 40-45%. -She appears fluid overloaded on exam. Continue IVP lasix to 40mg BID. --GDMT: continue farxiga 10mg daily, Toprol 50mg daily, spironolactone 25mg daily. Will increase Entresto to 97/103mg BID. -Pt c/o issues with taking torsemide daily due to frequent urination. Increasing Entresto may help with some diuretic properties, but ultimately she needs to be on a loop diuretic as well. Will continue to reinforce compliance with her diuretic. #HTN -Currently controlled #HLD -Lipids currently well controlled -LP(a) pending -Continue rosuvastatin 20mg daily Plan discussed with patient, hospitalist, and cardiology attending Dr. Rosado. Niraj San APRN-[facility] Cardiovascular Medicine POCT GLUCOSE METER UNSOLICIT ED RESULTS Collected: 04/21/2024 5:47 AM Status: UNK Source: [facility] Order Comment: Waived Testin g in the ED is performed under the ED CLIA certificate #[id number]. TYPE CODE TESTS RESULT OUT OF RANGE REFERENCE UNITS LAB 885 POCT GLUCOSE 177 High 70-105 mg/dL Result Comment: bandar Performed By: #### [id number] #### [facility] (BEAKER) [address] [place] [address] COMPREHENSIVE METABOLIC PANEL Collected: 04/21/2024 4 :53 AM Status: UNK Source: [facility] TYPE CODE TESTS RESULT OUT OF RANGE REFERENCE UNITS LAB [id number] SODIUM (MMOL/L) IN SER/PLAS 136 136-145 mmol/L LAB [id number] POTASSIUM (MMOL/ L) IN SER/PLAS 3.8 3.5-5.1 mmol/L LAB [id number] CHLORIDE (MMOL/L ) IN SER/PLAS 104 98-107 mmol/L LAB [id number] CARBON DIOXIDE, TOTAL (MMOL/L) IN SER/PLAS 24 21-31 mmol/L LAB [id number] ANION GAP IN SER/PLAS 12 7-20 mmol/L LAB [id number] UREA NITROGEN (MG/DL) IN SER/PLAS 40 High 7-25 mg/dL LAB [id number] CREATININE (MG/D L) IN SER/PLAS 1.03 0.60-1.20 mg/dL LAB [id number] UREA NITROGEN/CREATININ E (MASS RATIO) IN SER/PLAS 38.8 NA LAB [id number] GLUCOSE (MG/DL) IN SER/PLAS 139 High 70-100 mg/dL LAB 6161781 CALCIUM (MG/DL) IN SER/PLAS 9.7 8.6-10.3 mg/dL LAB [id number] ASPARTATE AMINOTRANSFERASE (SGOT) (U/L) IN SER/PLAS 27 13-39 U/L LAB 1400491 ALANINE AMINOTRANSFERASE (SGPT) (U/L) IN SER/PLAS 31 7-52 U/L LAB [id number] ALKALINE PHOSPHATASE (U/L) IN SER/PLAS 96 34-104 U/L LAB [id number] PROTEIN (G/DL) I N SER/PLAS 6.1 6.0-8.3 g/dL LAB 4039812 ALBUMIN (G/DL) I N SER/PLAS 3.3 Low 3.5-5.7 g/dL LAB [id number] BILIRUBIN TOTAL (MG/DL) IN SER/PLAS 0.6 0.3-1.0 mg/dL LAB [id number] GLOMERULAR FILTRATION RATE ML/MIN/1.73 SQ M.PREDICTED 58.1 Low >60.0 mL/min /1.73m *2 Result Comment: [facility]???s estimated glomerular filtration rate (eGFR) will [...] one group of individuals. Performed By: #### [id number] ### # [facility]) [address] [place] [address] MAGNESIUM Collected: 04/21/2024 4:53 AM Status: UN K Source: [facility] TYPE CODE TESTS RESULT OUT OF RANGE REFERENCE UNITS LAB [id number] MAGNESIUM (MG/DL) IN SER/PLAS 2.2 1.9-2.7 mg/dL Performed By: #### [id number] ## ## [facility] ([facility]) [address] [place] [address] CBC WITH AUTO DIFFERENTIAL Collected: 04/21/2024 4:53 AM Status: UNK Source: [facility] TYPE CODE TESTS RESULT OUT OF RANGE REFERENCE UNITS LAB 9494555 LEUKOCYTES(10*3/ UL) IN BLOOD BY AUTOMATED COUNT 17.29 High 4.00-10.60 10*3/uL LAB [id number] ERYTHROCYTES (10*6/UL) IN BLOOD BY AUTOMATED COUNT 4.42 3.80-5.00 10*6/uL LAB 2919910 HEMOGLOBIN (G/DL) IN BLOOD 12.8 12.0-15.0 g/dL LAB 2871290 HEMATOCRIT (%) IN BLOOD BY AUTOMATED COUNT 40.2 36.0-48.0 % LAB [id number] ERYTHROCYTE MEAN CORPUSCULAR VOLUME (FL) BY AUTOMATED COUNT 91.0 82.0-98.0 fL LAB [id number] ERYTHROCYTE MEAN CORPUSCULAR HEMOGLOBIN (PG) BY AUTOMATED COUNT 29.0 27.0-33.0 pg LAB [id number] ERYTHROCYTE MEAN CORPUSCULAR HEMOGLOBIN CONCENTRATION (G/DL) BY AUTOMATED 31.8 Low 32.0-35.0 g/dL LAB [id number] ERYTHROCYTE DISTRIBUTION WIDTH (RATIO) BY AUTOMATED COUNT 16.6 High 11.5-15.0 % LAB 7126779 PLATELETS (10*3/UL) IN BLOOD AUTOMATED COUNT 419 High 150-400 10*3/uL LAB 254 NRBC (PER 100 WBCS) BY AUTOMATED COUNT 0.0 0 % Performed By: #### [id number] # ### [facility] (BEAKER) [address] [place] [address] MANUAL DIFFERENTIAL Collected: 04/21/2024 4:[address] atus: UNK Source: [facility] TYPE CODE TESTS RESULT OUT OF RANGE REFERENCE UNITS LAB 1767 IMMATURE GRANULOCYTES/100 LEUKOCYTES IN BLOOD BY AUTOMATED COUNT 0.6 0.0-1.0 % LAB 109 VARIANT LYMPHOCYTES/100 LEUKOCYTES IN BLOOD CELLAVISION 0.0 0.0-0.0 % LAB [id number] NEUTROPHILS (10*3/UL) IN BLOOD BY CALCULATION 14.8 High 1.6-7.6 10*3/uL LAB [id number] LYMPHOCYTES (10*3/UL) IN BLOOD BY CALCULATION 0.92 Low 1.20-4.00 10*3/uL LAB [id number] MONOCYTES (10*3/UL) IN BLOOD BY CALCUATION 1.61 High 0.10-1.00 10*3/uL LAB 0396648 EOSINOPHILS (10*3/UL) IN BLOOD BY CALCULATION 0.00 0.00-0.50 10*3/uL LAB 8854079 BASOPHILS (10*3/UL) IN BLOOD BY CALCULATION 0.00 0.00-0.20 10*3/uL LAB 114 VARIANT LYMPHOCYTES (10*3/UL) IN BLOOD BY CALCULATION 0.00 0.00 10*3/uL LAB [id number] NEUTROPHILS/100 LEUKOCYTES IN BLOOD BY AUTOMATED COUNT 85.4 High 40.0-72.0 % LAB [id number] LYMPHOCYTES/100 LEUKOCYTES IN BLOOD BY AUTOMATED COUNT 5.3 Low 20.0-45.0 % LAB 1188704 MONOCYTES/100 LEUKOCYTES IN BLOOD BY AUTOMATED COUNT 9.3 5.0-12.0 % LAB 1780858 EOSINOPHILS/100 LEUKOCYTES IN BLOOD BY AUTOMATED COUNT 0.0 0.0-6.0 % LAB 1470329 BASOPHILS/100 LEUKOCYTES IN BLOOD BY AUTOMATED COUNT 0.0 0.0-1.0 % LAB 2631 IMMATURE GRANULOCYTES (10*3/UL) IN BLOOD BY CALCULATION 0.10 0.00-0.20 10*3/uL LAB 2633 PLASMA CELLS/100 LEUKOCYTES IN BLOOD 0 0 % Performed By: #### [id number] # ### [facility] ([facility]) [address] [place] [address] POCT GLUCOSE METER UNSOLICIT ED RESULTS Collected: 04/21/2024 12:17 AM Status: UNK Source: [facility] Order Comment: Waived Testin g in the ED is performed under the ED CLIA certificate #[id number]. TYPE CODE TESTS RESULT OUT OF RANGE REFERENCE UNITS LAB 885 POCT GLUCOSE 226 High 70-105 mg/dL Result Comment: [email or web address] Performed By: #### [id number] #### [facility] ([facility]ER) [address] [place] [address] 30 Observed: 04/20/2024 11:06 PM Status: COMPLETED Source: [facility] The patient is Moderately Un stable - Medium risk of patient condition declining or worsening The patient's goals for the shift include comfort The clinical goals for the shift include VSS/absence of chest pain Over the shift, the patient made progress toward the following goals: Problem: Pain - Adult Goal: Verbalizes/displays adequate comfort level or baseline comfort level Outcome: ProgressingProblem: Safety - Adult Goal: Free from fall injury Outcome: ProgressingProblem: Discharge Planning Goal: Discharge to home or other facility with appropriate resources Outcome: ProgressingProblem: Chronic Conditions and Co-morbidities Goal: Patient's chronic conditions and co-morbidity symptoms are monitored and maintained or improved Outcome: ProgressingProblem: Respiratory - Adult Goal: Achieves optimal ventilation and oxygenation Outcome: ProgressingProblem: Cardiovascular - Adult Goal: Maintains optimal cardiac output and hemodynamic stability Outcome: ProgressingGoal: Absence of cardiac dysrhythmias or at baseline Outcome: ProgressingProblem: Skin/Tissue Integrity - Adult Goal: Skin integrity remains intact Outcome: ProgressingGoal: Incisions, wounds, or drain sites healing without S/S of infection Outcome: ProgressingGoal: Oral mucous membranes remain intact Outcome: ProgressingProblem: Metabolic/Fluid and Electrolytes - Adult Goal: Glucose maintained within prescribed range Outcome: ProgressingProblem: Hematologic - Adult Goal: Maintains hematologic stability Outcome: Progressing POCT GLUCOSE METER UNSOLICIT ED RESULTS Collected: 04/20/2024 5:36 PM Status: UNK Source: [facility] Order Comment: Waived Testin g in the ED is performed under the ED CLIA certificate #[id number]. TYPE CODE TESTS RESULT OUT OF RANGE REFERENCE UNITS LAB 885 POCT GLUCOSE 292 High 70-105 mg/dL Result Comment: [email or web address] Performed By: #### [id number] #### [facility] ([facility]AKER) [address] [place] [address] PROGRESS Observed: 04/20/2024 2:31 PM Status: COMPLETED Source: [facility] Patient admitted to the hosp ital for: Angina pectoris. Chart echo from 04/19/2024 reports: EF 20 %. Current echo report qualifies for Cardiac Rehab services per CMS eligibility criteria. A Cardiac Rehab referral diagnosis and code must also meet CMS criteria. Dayami Mar RN, BSN Cardiology Outpatient Coordinator Cardiopulmonary Rehab 30 Observed: 04/20/2024 2:25 PM Status: COMPLETED Source: [facility] The patient is Moderately St able - Low risk of patient condition declining or worsening The patient's goals for the shift include finish testing ordered The clinical goals for the shift include no chest pain Over the shift, the patient did make progress toward the following goals. Barriers to progression include hospital routine. Recommendations to address these barriers include communicate with other departments on when a good time to take pt will be Problem: Pain - Adult Goal: Verbalizes/displays adequate comfort level or baseline comfort level Outcome: Progressing . PROGRESS Observed: 04/20/2024 1:23 PM Status: COMPLETED Source: [facility] Adult Nutrition Assessment: Name: Laura Lawson Date: 1950 Date of Visit: 04/20/24 Admission Dx: Angina pectoris ([facility]) [I20.9] Reason for assessment: high risk - po, wound, CHF Information obtained from: patient, family, and medical record Past Medical History: Diagnosis Date Abnormal ECG CHF (congestive heart failure) (CMS/HCC) Coronary artery disease Diabetes mellitus (CMS/HCC) Gout Hypertension Myocardial infarction (CMS/HCC) Sleep apnea Current Medications: [Held by provider] allopurinol, 300 mg, oral, Daily aspirin, 81 mg, oral, Daily baclofen, 10 mg, oral, Nightly colchicine, 0.6 mg, oral, Daily dapagliflozin propanediol, 10 mg, oral, Daily ezetimibe, 10 mg, oral, Daily furosemide, 40 mg, intravenous, q12h hydrALAZINE, 25 mg, oral, BID insulin glargine, 80 Units, subcutaneous, q AM insulin lispro, 0-10 Units, subcutaneous, q6h FRANNY metoprolol succinate XL, 50 mg, oral, Daily potassium chloride CR, 20 mEq, oral, Daily with breakfast pregabalin, 25 mg, oral, BID rosuvastatin, 20 mg, oral, Daily sacubitril-valsartan, 1 tablet, oral, BID spironolactone, 25 mg, oral, Once Daily ticagrelor, 90 mg, oral, BID Labs: 0 Lab Value Date/Time POCGLU 316 (H) 04/20/2024 1145 BUN 30 (H) 04/20/2024 0709 CREATININE 0.93 04/20/2024 0709 NA 135 (L) 04/20/2024 0709 K 4.0 04/20/2024 0709 PHOS 2.7 07/03/2023 0046 MG 2.1 09/10/2023 0508 HGBA1C 9.7 (H) 04/19/2024 0602 HGB 12.4 04/20/2024 0709 WBC 21.55 (H) 04/20/2024 0709 CHOL 107 (L) 04/19/2024 0602 HDL 50 04/19/2024 0602 I/O: Intake/Output Summary (Last 24 hours) at 04/20/2024 1323 Last data filed at 04/20/2024 0934 Gross per 24 hour Intake 1127.95 ml Output 2000 ml Net -872.05 ml Allergies: Allergies Allergen Reactions Gabapentin Palpitations Other reaction(s): Chest Pain Tramadol Other Other reaction(s): sleeplessness Nutrition Problems: Swallowing Assessment: Denies chew/swallow difficulties Abdominal Assessment: Last BM 04/20. Appetite: good Cognition: A&O x4 Physical findings: obese Skin: skin tear left leg; PI sacrum no stage; DFU left toe; Edema: BLE +1 Other Factors: - balloon angioplasty of LAD 04/19 - EF 40-45% 10/2023 Nutrition Data/Clinical Indicators of Nutrition Status: Height: 157.5 cm (5' 2.01 ) Weight: 110 kg (243 lb) BMI (Calculated): 44.43 Wt change: Recent weight increase per history. 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 In depth heart failure and diabetes education given to patient and patient family. See below. Checks blood sugars at night, it's usually under 200. Dietary Orders (From admission, onward) Start Ordered 04/20/24 0732 Special Kitchen Request Once Comments: Please send pancake with diet syrup, scrambled eggs, turkey links, and grapes. Thank you!!! 04/20/24 0732 04/19/24 1145 Regular Diet Diabetic Female (carb 45g/meal) Diet effective now Question Answer Comment Room Service? Yes Carbohydrate restriction: Diabetic Female (carb 45g/meal) 04/19/24 1145 Percent Meals Eaten (%): 33 (04/19/24 2240 : Jorje Hughes RN) Meal Intakes: Reported 100% of breakfast Nutrition Risk: Low Nutrition Needs: Needs based on: ideal body weight (50 kg) Calorie needs: 4371-1864 kcals/day based on Equation: 25-30 kcal/kg Protein needs: 40-50 g/day based on 0.8-1.0 g/kg Fluid needs: 1500 ml/day based on CHF Nutrition Diagnosis: limited adherence to nutrition-related recommendations related to diabetic and heart healthy diet as evidenced by being aware of what diet to follow but choosing not to Malnutrition Assessment: Patient at risk for malnutrition according to hospital criteria, but does not meet the clinical characteristics per the Academy of Nutrition and Dietetics, and the [place] [employer] of Enteral and Parenteral Nutrition to support the diagnosis of malnutrition. Nutrition Education: Diet literature: Heart Failure Nutrition Therapy from Nutrition Care Manual. Discussed limiting diet to 2000 mg of sodium / day, not adding salt to foods, educated on 2300 mg of sodium in one teaspoon of salt, discussed limiting vann, hamburger and deli meat. Patient does add salt to foods, knows that she should stop but is resistant. Encouraged trying grilled chicken, ground chicken and switching to leaner ground beef. Patient will cook food but also likes to eat out from fast food, get onion rings. Eats salads often for lunch. Patient does not follow diabetic diet, was able to tell me what it is but doesn't want to follow. Family present in room, also try to encourage patient, also well versed in education. Expected compliance/patient understanding: Poor, patient choosing not to follow diet changes Teach back method: Yes Time spent: [address] name and contact information given if further questions. Treatment Plan: Continue diabetic diet Monitor intakes Monitor weight Medically manage BG Goals: Nutrition Goals: intake > 75% meals, compliance w/ MNT, and maintain visceral protein Contact the dietitian via [employer] chat 8A-4P Friday through Friday or call extension [phone]. For weekends & holidays, the dietitian can be reached via pager [phone] from 9A-3P. Unable to respond to [employer] chat messages on Friday & s. PROGRESS Observed: 04/20/2024 12:39 PM Status: COMPLETED Source: [facility] Case was discussed with the Medical Student on 04/20/2024. I examined the patient with the student. I agree with the history, physical, assessment, and plan of care. I discussed the findings and therapeutic plan. I agree with the documentation, except for any updates below. S/p balloon angioplasty for LAD in-stent stenosis. Chest pain improved but L chest wall sharp pain ongoing; reproducible on exam. Start lidocaine patch and offer Voltaren if no resolution. Pursue GDMT. In addition, will increase lasix 40 IV to BID. Will discuss with Cards regarding choice of diuretic outpatient. Previously was on torsemide. I think likely her nonadherence is contributing to her clinical picture. States she does not want to take water pill if she has things to do during the day. States she has seen Urology in the past for which she was cleared after 5 years surveillance of her renal mass that once again appears stable on CT. LFTs decreased for which she will need follow up outpatient. Aram Jha MD [facility] Medicine Daily Progress Note - 04/20/2024 12:40 PM; Room: [address] [place] [address] Admission: 04/19/2024 4:39 AM; Length of stay: 1 days THE HOSPITALIST TEAM PREFERS TO USE [employer] CHAT FOR NON-URGENT COMMUNICATION 7AM-7PM. IF I DO NOT RESPOND WITHIN 20 MINUTES OR URGENT MATTERS, PLEASE CALL THROUGH THE [employer]ARDROBE TECHNICIAN. FROM 7PM-7AM, PLEASE PAGE [phone](COVR). Code Status: Full Code Barriers to Discharge: medical stabilization, cardiology recommendations Expected Discharge Date: 1-2 days Discharge Destination: home Overview Patient is seen for evaluation and management of acute NSTEMI now 1 day s/p balloon angioplasty of LAD. Subjective No acute events overnight. The patient endorses pain under her left breast that started at the onset of her heart attack, as well as pain in the back that she reports has been chronic in nature since November. No other concerns, and denies any SOB. Physical Exam Visit Vitals BP 129/63 Pulse 81 Temp 36.8 ???C (98.2 ???F) (Temporal) Resp 19 Intake/Output Summary (Last 24 hours) at 04/20/2024 1240 Last data filed at 04/20/2024 0934 Gross per 24 hour Intake 1127.95 ml Output 2000 ml Net -872.05 ml Physical Exam Constitutional: Appearance: Normal appearance. She is obese. Cardiovascular: Rate and Rhythm: Normal rate and regular rhythm. Pulses: Normal pulses. Heart sounds: Normal heart sounds. No murmur heard. No friction rub. Skin: General: Skin is warm. Neurological: General: No focal deficit present. Mental Status: She is alert and oriented to person, place, and time. Mental status is at baseline. Estimated body mass index is 44.43 kg/m??? as calculated from the following: Height as of this encounter: 1.575 m (5' 2.01 ). Weight as of this encounter: 110 kg (243 lb). Active Inpatient Problems Principal Problem: Angina pectoris ([facility]) Assessment and Plan Acute NSTEMI s/p ballon angioplasty -Continue Aspirin 81 mg every day, Brilinita 90mg BID, Crestor 20mg every day, Nitroglycerin PRN for chest pain -Continue to trend troponin levels, troponin 15.43--> 12.76 04/20 -Cardiology following, appreciate recommendations Acute on Chronic HF w/ Reduced EF -IV Lasix 40mg increased to q12 hours due to elevated BNP levels 4139 04/20. -Dapagiflozin 10mg QD -Toprol XL 50mg every day -Entresto oral 50mg BID -Aldactone 25mg oral every day -Continue GDMT for HF. Cardiology following, appreciate recommendations. Will follow-up outpatient for further optimization T2DM -Glucose today 316, continue to monitor -Insulin regimen with Lantus and Humalong. Will adjust accordingly on sliding scale Gout -Colchicine 0.6mg oral every day -Allopurinol 300mg oral every day currently being held Chronic back pain -Home Lyrica 25mg BID -PT/OT consulted Restless Legs Syndrome -Oral Baclofen 10mg QD HLD -Zetia 10mg oral every day Elevated Liver Enzymes -CT Abdomen/Pelvis 04/20-*No focal liver mass or biliary ductal dilatation. *Cardiomegaly with severe coronary artery calcifications. 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 Consider renal mass protocol MRI for more detailed characterization. *Small bilateral pleural effusions with adjacent atelectasis -Will follow-up outpatient for further evaluation of renal mass. -Continue to trend liver labs. Nutrition Screen: VTE Prophylaxis: None Scheduled Meds [Held by provider] allopurinol, 300 mg, oral, Daily aspirin, 81 mg, oral, Daily baclofen, 10 mg, oral, Nightly colchicine, 0.6 mg, oral, Daily dapagliflozin propanediol, 10 mg, oral, Daily ezetimibe, 10 mg, oral, Daily furosemide, 40 mg, intravenous, q12h hydrALAZINE, 25 mg, oral, BID insulin glargine, 80 Units, subcutaneous, q AM insulin lispro, 0-10 Units, subcutaneous, q6h FRANNY metoprolol succinate XL, 50 mg, oral, Daily potassium chloride CR, 20 mEq, oral, Daily with breakfast pregabalin, 25 mg, oral, BID rosuvastatin, 20 mg, oral, Daily sacubitril-valsartan, 1 tablet, oral, BID spironolactone, 25 mg, oral, Once Daily ticagrelor, 90 mg, oral, BID Pertinent Investigations Hematology: Results from last 7 days Lab Units 04/20/24 0709 04/19/24 0602 WBC AUTO 10*3/uL 21.55* 23.34* HEMOGLOBIN g/dL 12.4 12.3 HEMATOCRIT % 40.1 40.1 MCV fL 91.8 93.5 PLATELETS AUTO 10*3/uL 369 312 Chemistry: Results from last 7 days Lab Units 04/20/24 0709 04/19/24 0602 SODIUM mmol/L 135* 134* POTASSIUM mmol/L 4.0 4.4 CHLORIDE mmol/L 102 102 CO2 mmol/L 24 21 BUN mg/dL 30* 26* CREATININE mg/dL 0.93 0.90 GLUCOSE mg/dL 182* 273* CALCIUM mg/dL 9.9 9.8 Results from last 7 days Lab Units 04/20/24 0709 04/19/24 0602 AST U/L 47* 77* ALT U/L 42 63* ALK PHOS U/L 105* 107* BILIRUBIN TOTAL mg/dL 1.0 1.0 BILIRUBIN DIRECT mg/dL 0.2 -- Results from last 7 days Lab Units 04/20/24 1145 04/20/24 0645 04/20/24 0011 04/19/24 1803 04/19/24 1225 04/19/24 0751 POCT GLUCOSE mg/dL 316* 176* 175* 266* 212* 260* Historical Values: (Includes values prior to this admission) Lab Results Component Value Date TSH 0.64 04/19/2024 HDL 50 04/19/2024 LDL 57 04/19/2024 No results found for: [id number] , IRON , TIBC , C3 , C4 , JEREMIAH , CANCA , ASO , PSA , CEA , CA125 , CA199 , AFP , CA153 Imaging CT abdomen pelvis w IV contrast Narrative: STUDY: ABDOMEN AND PELVIS CT WITH CONTRAST HISTORY: Elevated LFTs, abdominal pain, chest pain COMPARISON: 03/28/2014. TECHNIQUE: Routine CT abdomen and pelvis was performed with contrast. All CT scans at this facility use dose modulation, iterative reconstruction, and/or weight based dosing when appropriate to reduce radiation dose to as low as reasonably achievable. FINDINGS: Cardiomegaly. Small bilateral pleural effusions with adjacent atelectasis. Severe coronary artery calcifications. No focal liver mass. Vicarious excretion of contrast in the gallbladder. No biliary ductal dilatation. The adrenal glands, pancreas, and spleen are unremarkable. Several small bilateral renal cysts. There is a heterogeneous lesion measuring 2.8 cm in the upper pole of the right kidney (axial image 47), similar in size in comparison with previous study. This may contain a few small fat components. No enlarged abdominal or pelvic lymph nodes. Diffuse atherosclerotic disease. The bladder is underdistended. Previous hysterectomy. The small and large bowel are of normal caliber with no evidence of bowel wall thickening. Chronic thick-walled scarring containing trace amount of fluid in the anterior abdominal wall is unchanged since previous. No free fluid in the abdomen or pelvis. No free intraperitoneal air. Degenerative and postoperative changes in the spine. Impression: *No focal liver mass or biliary ductal dilatation. *Cardiomegaly with severe coronary artery calcifications. 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 Consider renal mass protocol MRI for more detailed characterization. *Small bilateral pleural effusions with adjacent atelectasis Electronically signed: Jorje Neumann MD. ECG 12 lead Sinus rhythm with 1st degree A-V block Non-specific intra-ventricular conduction block Lateral infarct (cited on or before 03-JUL-2023) T wave abnormality, consider inferior ischemia Abnormal ECG When compared with ECG of 19-APR-2024 16:38, (unconfirmed) No significant change was found Confirmed by Josh ROUSE, YARELI Velazquez ([id number]) on 04/20/2024 9:48:55 AM ECG 12 lead Sinus rhythm with sinus arrhythmia with 1st degree A-V block Non-specific intra-ventricular conduction block Lateral infarct (cited on or before 03-JUL-2023) Abnormal ECG When compared with ECG of 19-APR-2024 08:44, No significant change was found Confirmed by Josh ROUSE, YARELI Velazquez ([id number]) on 04/20/2024 9:46:11 AM Discharge Planning Expected Discharge Disposition: Home or Self Care () PT Discharge Recommendations: Home OT Discharge Recommendations: Home Signed Marichuy Grant, MS4 [facility] Medicine 04/20/2024 12:40 PM POCT GLUCOSE METER UNSOLICIT ED RESULTS Collected: 04/20/2024 11:45 AM Status: UNK Source: [facility] Order Comment: Waived Testin g in the ED is performed under the ED CLIA certificate #[id number]. TYPE CODE TESTS RESULT OUT OF RANGE REFERENCE UNITS LAB 885 POCT GLUCOSE 316 High 70-105 mg/dL Result Comment: [email or web address] Performed By: #### [id number] #### [facility] (AKER) [address] [place] [address] TROPONIN I Collected: 11:13 AM Status: UNK Source: [facility] TYPE CODE TESTS RESULT OUT OF RANGE REFERENCE UNITS LAB [id number] TROPONIN I.CARDIAC (NG/ML) IN SERUM OR PLASMA 12.78 High Alert 0.00-0.04 ng/mL Result Comment: Previous res ult verified on 04/19/2024 2358 on specimen/case [id number] called with component Troponin I for procedure Troponin I with value 19.85 ng/mL. Performed By: #### [id number] ## ## [facility] [address] [place] [address] PROGRESS Observed: 04/20/2024 10:44 AM Status: COMPLETED Source: [facility] Physical Therapy Physical Therapy Evaluation Patient Name: Laura Lawson : 1950 Today's Date: 04/21/2024 Patient is a 73 y/o female who presented from [facility] 04/19/24 with chest pain and NSETMI, significantly elevated troponin with peak of 19, currently 15.43 and trending down. Tolerated session well today, presents with mildly impaired activity tolerance and independence. Will benefit from further skilled PT services. Discharge: Home General Subjective: RN approved PT session this morning. In chair upon arrival, agreeable to session. Upon completion patient left back in bed with call light within reach. PT Diagnosis: Impaired functional indnependence/activity tolernaace Patient Active Problem List Diagnosis Allergic rhinitis Angiomyolipoma of kidney Benign essential hypertension Cerebrovascular disease Chronic foot ulcer ([facility]) Coronary atherosclerosis Decreased estrogen level Diabetic retinopathy associated with type 2 diabetes mellitus ([facility]) Diaphragmatic hernia Difficulty walking Dyspnea on exertion Generalized osteoarthritis Gout History of arthritis History of hysterectomy Hyperglycemia due to type 2 diabetes mellitus ([facility]) detention current use of insulin ([facility]) Low back pain Morbid obesity ([facility]) Neoplasm of uncertain behavior of kidney Obstructive sleep apnea syndrome Osteoarthritis of knee Osteoporosis Peripheral venous insufficiency Polyneuropathy due to type 2 diabetes mellitus ([facility]) Preoperative evaluation to rule out surgical contraindication Pulmonary function studies abnormal Pure hypercholesterolemia Renal mass Skin sensation disturbance Type 2 diabetes mellitus without complication ([facility]) Umbilical hernia Uric acid nephrolithiasis NSTEMI (non-ST elevated myocardial infarction) ([facility]) Acute exacerbation of CHF (congestive heart failure) ([facility]) COVID-19 Acquired spondylolisthesis Acute on chronic diastolic heart failure ([facility]) Coronary artery disease (CAD) excluded Diastolic dysfunction GERD (gastroesophageal reflux disease) History of carpal tunnel surgery of right wrist Hyperlipidemia Impaired mobility and endurance Localized edema Lumbar radiculopathy Morbid obesity with body mass index (BMI) of 45.0 to 49.9 in adult ([facility]) Paresthesia of skin Primary osteoarthritis of both knees S/P drug eluting coronary stent placement Ulcer of foot due to type 2 diabetes mellitus ([facility]) Pericardial effusion CAD in [place] artery Coronary artery disease Coronary artery disease involving [place] coronary artery of [place] heart with other form of angina pectoris ([facility]) Chronic systolic heart failure ([facility]) Combined forms of age-related cataract of both eyes History of lumbar fusion Nonexudative age-related macular degeneration Thyroid disease Angina pectoris (CMS/HCC) Past Medical History: Diagnosis Date Abnormal ECG CHF (congestive heart failure) (CMS/HCC) Coronary artery disease Diabetes mellitus (CMS/HCC) Gout Hypertension Myocardial infarction (CMS/HCC) Sleep apnea Past Surgical History: Procedure Laterality Date BACK SURGERY CARDIAC CATHETERIZATION CARPAL TUNNEL RELEASE HYSTERECTOMY THYROID SURGERY Precautions Precautions Medical Precautions: fall risk, oxygen, IV, telemetry (2L O2) Pain Pain Assessment Pain Assessment: 0-10 Pain Score: 2 Pain Type: Chronic pain Pain Location: Back Pain Orientation: Lower Cognition Cognition Overall Cognitive Status: Within Functional Limits Arousal/Alertness: Appropriate responses to stimuli Orientation Level: Oriented X4 Following Commands: Follows all commands and directions without difficulty General Assessment General Assessment Hearing: Intact Hand Dominance: Right Home Living Home Living Type of Home: House Lives With: Significant other Home Adaptive Equipment: Walker rolling, Rollator Home Layout: One level Home Access: Stairs to enter with rails Entrance Stairs-Rails: Right Entrance Stairs-Number of Steps: 4 Bathroom Shower/Tub: Walk-in shower Bathroom Equipment: Raised toilet seat with rails, Grab bars in shower, Built-in shower seat Prior Level of Function Prior Function Level of [place]: Independent with ADLs and functional transfers, Independent with homemaking with ambulation Prior Functional Mobility: Independent with rolling walker ADL Assistance: Independent Homemaking Assistance: Independent Vision Basic Assessment Vision - Basic Assessment Current Vision: No visual deficits Activity Tolerance Activity Tolerance Endurance: Stage II General Assessments Activity Tolerance Endurance: Stage II Sensation Light Touch: No apparent deficits Coordination Movements are Fluid and Coordinated: Yes Postural Control Postural Control: Within Functional Limits Static Sitting Balance Static Sitting-Balance Support: Feet supported Static Sitting-Level of Assistance: Independent Dynamic Sitting Balance Dynamic Sitting Balance-Level of Assistance: Close supervision Static Standing Balance Static Standing-Balance Support: With device (Rw) Static Standing-Level of Assistance: Contact guard Dynamic Standing Balance Dynamic Standing-Balance Support: With device (RW) Dynamic Standing Balance-Level of Assistance: Contact guard Functional Assessments Bed Mobility Bed Mobility: Yes Bed Mobility 1 Bed Mobility From 1: Short sit Bed Mobility Type 1: To Bed Mobility to 1: Supine Level of Assistance 1: Minimum assistance Transfers Transfer: Yes Transfer 1 Transfer From 1: Chair with arms Transfer Type 1: To Transfer to 1: Bed Technique 1: Stand pivot Transfer Device 1: rolling walker Transfer Level of Assistance 1: Contact guard Ambulation Ambulation: Yes (Able to take several steps from chair to EOB in order to go for CT scan.) Extremity Assessments RUE Assessment RUE Assessment: Within Functional Limits LUE Assessment LUE Assessment: Within Functional Limits RLE Assessment RLE Assessment: Within Functional Limits (BLE grossly 4/5 strength throughout) LLE Assessment LLE Assessment: Within Functional Limits (BLE grossly 4/5 strength throughout) Therapeutic Exercise Outcome Assessments 6 Clicks (Mobility) Help from another person turning from your back to your side while in a flat bed without using bedrails: A little Help from another person moving from lying on your back to sitting on the side of a flat bed without using bedrails: A little Help from another person moving to and from a bed to a chair (including a wheelchair): A little Help from another person standing up from a chair using your arms (e.g. wheelchair or bedside chair): A little Help from another person to walk in hospital room: A little Help from another person climbing 3-5 steps with a railing: A little Mobility 6 Clicks T-Score: 18 Assessment/Plan PT Assessment Impairments: Decreased strength, Decreased endurance, Impaired balance, Decreased mobility PT Assessment: Patient is a 73 y/o female who presents with impaired activity tolerance/functional independence. Will benefit from further skilled PT services to maximize safety/independence. Prognosis: Good Evaluation/Treatment Tolerance: Patient tolerated treatment well Medical Staff Made Aware: Yes Plan Level of assist: 1 assist Treatment/Interventions: Functional transfer training, LE strengthening/ROM, Bed mobility, Gait training, Balance training, Endurance training, Patient/family training PT Plan: Skilled PT PT Frequency: 5 times per week until discharge & PRN PT Discharge Recommendations: Home Equipment Recommended: none PT - Discharge Recommendations Placed: Yes PT Goals Multi-Disciplinary Problems (from Physical Therapy) Active Problems Problem: PT Misc Start Date: 04/20/24 Goal Start Date Expected End Date End Date Patient to demonstrate the ability to complete all bed mobility independently with HOB flat 04/20/24 05/04/24 -- Goal Start Date Expected End Date End Date Patient to demonstrate the ability to complete all transfers independently with use of RW 04/20/24 05/04/24 -- Goal Start Date Expected End Date End Date Patient to demonstrate the ability to ambulate household distances with use of RW independently 04/20/24 05/04/24 -- Goal Start Date Expected End Date End Date Patient to demo the ability to maintain standing balance throughout all standing functional tasks with assistive device as needed 04/20/24 05/04/24 -- Goal Start Date Expected End Date End Date Patient to participate in BLE exercise to improve strength and limit effects of immobility related to hospital admission. 04/20/24 05/04/24 -- PROGRESS Observed: 04/20/2024 10:20 AM Status: COMPLETED Source: [facility] Cardiology Progress Note Subjective F/U: chest pain, HPI: Laura Lawson is a 73 y.o. female with past history remarkable for primary hypertension, type 2 diabetes mellitus, mixed hyperlipidemia, coronary artery disease status post PCI to LAD, RCA on 10/2023, chronic heart failure with improved ejection fraction 45% previously 30%, who presented to [facility] after transfer from [facility] where she initially presented with left-sided chest pain, found to have elevated high-sensitivity troponin and was transferred to [facility]. During my evaluation today, patient was complaining of chest pain left-sided in location, moderate in intensity, with no radiation. With no otherassociated symptoms. Her initial troponin was 17. Cardiology team consulted for further evaluation and management. She was taken Interval HPI: Patient seen and examined at bedside this AM. No acute events overnight. She went down for CT abd/pelvis this morning for acute left lateral chest/abdomen pain. She also reports issues with her chronic back pain. She notes having some dyspnea while waiting/laying after her CT scan this AM. She states her leg swelling is worse than normal. She admits to often missing her doses of lasix due to frequent urination. She hasn't taken her water pills for the past week or so. Denies dizziness/LH, palpitations, syncope. Objective Patient Vitals for the past 24 hrs: BP Temp Temp src Pulse Resp SpO2 Weight 04/20/24 0723 129/63 -- -- 81 19 99 % -- 04/20/24 0458 -- -- -- -- -- -- 110 kg (243 lb) 04/20/24 0350 130/73 36.8 ???C (98.2 ???F) Temporal 72 20 99 % -- 04/20/24 0000 125/62 36.5 ???C (97.7 ???F) Temporal 63 18 99 % -- 04/19/244 -- -- -- -- -- 99 % -- 04/19/24 2000 114/67 36.7 ???C (98.1 ???F) Temporal 60 20 99 % -- 04/19/24 1900 120/59 -- -- 74 21 98 % -- 04/19/24 1800 124/68 -- -- 59 22 99 % -- 04/19/24 1700 132/68 -- -- 70 17 96 % -- 04/19/24 1600 135/59 -- -- 68 18 96 % -- 04/19/24 1530 (!) 124/32 -- -- 63 24 99 % -- 04/19/24 1500 128/80 -- -- 63 24 100 % -- 04/19/24 1445 121/50 -- -- 65 25 95 % -- 04/19/24 1430 121/60 -- -- 63 24 98 % -- 04/19/24 1415 157/60 -- -- 73 22 95 % -- 04/19/24 1400 150/50 -- -- 65 21 100 % -- 04/19/24 1345 121/58 -- -- 73 22 98 % -- 04/19/24 1330 124/58 -- -- 71 14 100 % -- 04/19/24 1315 130/55 -- -- 59 17 99 % -- 04/19/24 1300 117/59 -- -- 57 17 100 % -- 04/19/24 1245 106/61 -- -- 58 21 100 % -- 04/19/24 1230 (!) 127/48 -- -- 63 17 99 % -- 04/19/24 1215 122/69 -- -- 67 19 98 % -- 04/19/24 1200 127/63 36.6 ???C (97.9 ???F) Temporal 64 26 95 % -- 04/19/24 1145 130/57 -- -- 70 26 94 % -- 04/19/24 1130 131/65 -- -- 66 25 95 % -- 04/19/24 1104 126/76 -- -- 69 16 99 % -- 04/19/24 1028 -- -- -- -- -- 100 % -- 04/19/24 1026 153/76 -- -- 77 16 98 % -- Current Facility-Administered Medications: [Held by provider] allopurinol (Zyloprim) tablet 300 mg, 300 mg, oral, Daily, Анна Wright MD, 300 mg at 04/20/24 1110 aspirin chewable tablet 81 mg, 81 mg, oral, Daily, Анна Wright MD, 81 mg at 04/20/24 1110 baclofen (Lioresal) tablet 10 mg, 10 mg, oral, Nightly, Анна Wright MD, 10 mg at 04/19/240 colchicine tablet 0.6 mg, 0.6 mg, oral, Daily, Sofiya Rosado MD, 0.6 mg at 04/20/24 1110 dapagliflozin propanediol (Farxiga) tablet 10 mg, 10 mg, oral, Daily, Анна Wright MD, 10 mg at 04/20/24 1110 ezetimibe (Zetia) tablet 10 mg, 10 mg, oral, Daily, Анна Wright MD, 10 mg at 04/20/24 1108 furosemide (Lasix) injection 40 mg, 40 mg, intravenous, q12h, Aram Jha MD hydrALAZINE (Apresoline) tablet 25 mg, 25 mg, oral, BID, Анна Wright MD, 25 mg at 04/20/24 1109 insulin glargine (Lantus) injection vial 80 Units, 80 Units, subcutaneous, q AM, Анна Wright MD, 80 Units at 04/20/24 1108 insulin lispro (HumaLOG) injection 0-10 Units, 0-10 Units, subcutaneous, q6h FRANNY, Анна Wright MD, 8 Units at 04/20/24 1151 metoprolol succinate XL (Toprol-XL) 24 hr tablet 50 mg, 50 mg, oral, Daily, Sofiya Rosado MD, 50 mg at 04/20/24 1110 nitroglycerin (Nitrostat) SL tablet 0.4 mg, 0.4 mg, sublingual, q5 min PRN, Анна Wright MD, 0.4 mg at 04/20/24 0724 potassium chloride CR (Klor-Con M20) ER tablet 20 mEq, 20 mEq, oral, Daily with breakfast, Анна Wright MD, 20 mEq at 04/20/24 0757 pregabalin (Lyrica) capsule 25 mg, 25 mg, oral, BID, Анна Wright MD, 25 mg at 04/20/24 1110 rosuvastatin (Crestor) tablet 20 mg, 20 mg, oral, Daily, Sofyia Rosado MD, 20 mg at 04/20/24 1110 sacubitril-valsartan (Entresto) 49-51 mg per tablet 1 tablet, 1 tablet, oral, BID, Анна Wright MD, 1 tablet at 04/20/24 1108 Insert peripheral IV, , , Once AND Saline lock IV, , , Once AND sodium chloride flush 10 mL, 10 mL, intravenous, q8h PRN, Анна Wright MD spironolactone (Aldactone) tablet 25 mg, 25 mg, oral, Once Daily, Анна Wright MD, 25 mg at 04/20/24 0807 ticagrelor (Brilinta) tablet 90 mg, 90 mg, oral, BID, Анна Wright MD, 90 mg at 04/20/24 1110 Physical Exam Vitals reviewed. Constitutional: Appearance: Normal appearance. She is obese. HENT: Head: Normocephalic and atraumatic. Right Ear: External ear normal. Left Ear: External ear normal. Eyes: Extraocular Movements: Extraocular movements intact. Conjunctiva/sclera: Conjunctivae normal. Pupils: Pupils are equal, round, and reactive to light. Neck: Comments: Large neck girth Cardiovascular: Rate and Rhythm: Normal rate and regular rhythm. Pulses: Normal pulses. Heart sounds: Normal heart sounds. Comments: Left radial cath site soft, nontender, no hematoma, no bruit Pulmonary: Effort: Pulmonary effort is normal. Breath sounds: Normal breath sounds. Abdominal: General: Bowel sounds are normal. Palpations: Abdomen is soft. Musculoskeletal: Cervical back: Neck supple. Right lower leg: Edema present. Left lower leg: Edema present. Comments: +2 BLE edema Skin: General: Skin is warm and dry. Neurological: General: No focal deficit present. Mental Status: She is alert and oriented to person, place, and time. Psychiatric: Mood and Affect: Mood normal. Behavior: Behavior normal. Thought Content: Thought content normal. Judgment: Judgment normal. Lab Results Component Value Date NA 135 (L) 04/20/2024 K 4.0 04/20/2024 CL 102 04/20/2024 ANIONGAP 13 04/20/2024 BUN 30 (H) 04/20/2024 CREATININE 0.93 04/20/2024 CALCIUM 9.9 04/20/2024 MG 2.1 09/10/2023 PHOS 2.7 07/03/2023 Lab Results Component Value Date BILITOT 1.0 04/19/2024 ALKPHOS 107 (H) 04/19/2024 AST 77 (H) 04/19/2024 ALT 63 (H) 04/19/2024 PROT 6.2 04/19/2024 ALBUMIN 3.6 04/19/2024 Lab Results Component Value Date WBC 21.55 (H) 04/20/2024 RBC 4.37 04/20/2024 HGB 12.4 04/20/2024 HCT 40.1 04/20/2024 MCV 91.8 04/20/2024 MCH 28.4 04/20/2024 MCHC 30.9 (L) 04/20/2024 RDW 16.7 (H) 04/20/2024 NEUTOPHILPCT 85.4 (H) 04/20/2024 LYMPHOPCT 5.3 (L) 04/20/2024 MONOPCT 9.3 04/20/2024 EOSPCT 0.0 04/20/2024 BASOPCT 0.0 04/20/2024 NEUTROABS 18.4 (H) 04/20/2024 LYMPHSABS 1.93 09/10/2023 MONOSABS 1.04 (H) 09/10/2023 EOSABS 0.00 04/20/2024 BASOSABS 0.00 04/20/2024 PLT 369 04/20/2024 NRBC 0.0 04/20/2024 No X-ray results found for the past 24 hoursNo MRI results found for the past [address] results found for the past 24 hours Encounter Date: 04/19/24 ECG 12 lead Result Value Ventricular Rate 78 Atrial Rate 78 NC Interval 224 QRS DURATION 142 QT Interval 432 QTC CALCULATION(BAZETT) 492 P [place] 77 R-[place] 150 T Wave [place] -15 Impression Sinus rhythm with 1st degree A-V block Non-specific intra-ventricular conduction block Lateral infarct (cited on or before 03-JUL-2023) T wave abnormality, consider inferior ischemia Abnormal ECG When compared with ECG of 19-APR-2024 16:38, (unconfirmed) No significant change was found Confirmed by Josh ROUSE, YARELI Velazquez (57) on 04/20/2024 9:48:55 AM Cardiac cath conclusion 04/19/2024 PROCEDURE PHYSICIAN: Sofiya Rosado MD Clinical Presentation: 73 y.o. Female with history of CAD s/p multivessel PCI 10/2023 (complex PCI LAD and RCA), morbid obesity, HFrEF, and diabetes. She is admitted with chest pain and diagnosed with NSTEMI. Troponin peaked at 17 this morning. She is brought urgently to the cardiac cardiac cath rn for high risk NSTEMI. Final Impression: 1) 90% in-stent restenosis of the mid LAD s/p scoring balloon angioplasty 2) RCA stents are patent 3) LCX is diffusely diseased and stable in appearance compared with prior angiogram Plan: 1) optimal med therapy for CAD s/p PCI and HFrEF 2) Aspirin and Brilinta for DAPT 3) high intensity statin therapy and ezetimibe; lipid are at goal with LDL 41 mg/dL and non-HDL cholesterol 57 mg/dL 4) add colchicine 0.6 mg once daily for anti-ISR treatment; I had to change atorvastatin to rosuvastatin and carvedilol to metoprolol to avoid drug interactions with colchicine 5) patient has diabetes and CAD and BMI >40; she is strongly indicated for GLP-1 agonist, semaglutide, for treatment of diabetes and reduction of AK and CVA risk 6) referral to cardiac rehab 7) close outpatient follow up with [facility] 8) check Lp(a) and HbA1c and [id number] genotype (I placed orders for these tests) 9) if she has recurrent ISR in the future, then IVUS-guided drug coated balloon (DCB) angioplasty can be utilized ECHO 04/19/2024 Left Ventricle: The left ventricle is mildly enlarged. Global left ventricular systolic function is severely reduced. The EF is 20 % visually. Left ventricular wall thickness is increased. Regional wall motion abnormalities (see diagram). Right Ventricle: The right ventricle appears enlarged. Right ventricular systolic function appears reduced. Unable to assess right sided pressures due to lack of measurable tricuspid regurgitation. Left Atrium: The left atrium is mildly enlarged. Mitral Valve: Mild mitral regurgitation. Overall Conclusions: Due to suboptimal imaging Lumason contrast was administered for opacification and better delineation of endocardial borders Assessment/Plan Principal Problem: Angina pectoris (CMS/HCC) #NSTEMI #CAD s/p PCI to LAD, RCA on 10/2023 -cardiac cath yesterday found ISR of recently placed LAD stent. She underwent PCI with scoring balloon angioplasty to open up the stenosis. -Today she reports she is feeling better. She is having c/o atypical chest pain - primary team working this up. Cardiac testing was unremarkable. -We switched plavix to Brilinta. Continue ASA 81mg daily. -Colchicine 0.6mg daily added for anti-inflammatory benefits. -Atorvastatin switched to rosuvastatin, carvedilol to Toprol due to interactions with colchicine. -Stressed the importance of uninterrupted DAPT with patient. She states understanding. #Acute on chronic systolic heart failure -EF acutely reduced to 20%. Previous EF was down to 30% and it had recovered to 40-45%. -She appears fluid overloaded on exam. Primary team increased lasix to 40mg BID. --GDMT: continue farxiga 10mg daily, Entresto 49/51mg BID, Toprol 50mg daily, spironolactone 25mg daily. #HTN -Currently controlled #HLD -Lipids currently well controlled -LP(a) pending -Continue rosuvastatin 20mg daily Niraj San APRN-[facility] Cardiovascular Medicine PROGRESS Observed: 04/20/2024 10:14 AM Status: COMPLETED Source: [facility] 04/20/24 1013 Admission Assessment Questions Verify insurance with patient Yes Do you understand medical disease or what brought you into the hospital? Yes Who is your current PCP? Vlad Cesar Can I schedule a follow up appointment for you at the time of discharge? Yes Do you understand why you are taking your current medications? Yes Are you taking your medications as prescribed? Yes Did patient provide teach back? Yes Pharmacy Bedside Delivery Status Interested Does the patient have a shoe caser assigned to them through their insurance? No Living Arrangement (Current/Prior to Hospitalization) Private residence Does the patient have history of HHC or SNF? No Assistive Device Walker;Grab bars Patient's goal for discharge reutrn home with significant other-Latrice Was patient reminded that goal for discharge is 11am? Yes Does the patient have transportation at discharge? Yes (Latrice) Type of Residence Private residence Is PT/OT appropriate? Yes Is PT/OT ordered? Yes Is SW consult appropriate? No Is SW consult ordered? No Do you understand the benefits of MyChart? Yes Were you able to send link and activate MyChart? Yes B-TYPE NATRIURETIC PEPTIDE Collected: 04/20/2024 8:43 AM Status: UNK Source: [facility] TYPE CODE TESTS RESULT OUT OF RANGE REFERENCE UNITS LAB [id number] NATRIURETIC PEPTIDE B (PG/ML) IN SER/PLAS 4139 High 0-100 pg/mL Performed By: #### [id number] ## ## [facility] ([facility]) [address] [place] [address] PROGRESS Observed: 04/20/2024 7:59 AM Status: COMPLETED Source: [facility] Occupational Therapy Occupational Therapy Evaluation Patient Name: Laura Lawson : 1950 Today's Date: 04/20/2024 Time In: 733 Time Out: 753 She was transferred to [facility] from [facility] for NSTEMI. 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 (CMS/HCC) Low back pain Morbid obesity (CMS/HCC) Neoplasm of uncertain behavior of kidney Obstructive sleep apnea syndrome Osteoarthritis of knee Osteoporosis Peripheral venous insufficiency Polyneuropathy due to type 2 diabetes mellitus (CMS/HCC) Preoperative evaluation to rule out surgical contraindication Pulmonary function studies abnormal Pure hypercholesterolemia Renal mass Skin sensation disturbance Type 2 diabetes mellitus without complication ([facility]) Umbilical hernia Uric acid nephrolithiasis NSTEMI (non-ST elevated myocardial infarction) ([facility]) Acute exacerbation of CHF (congestive heart failure) ([facility]) COVID-19 Acquired spondylolisthesis Acute on chronic diastolic heart failure ([facility]) Coronary artery disease (CAD) excluded Diastolic dysfunction GERD (gastroesophageal reflux disease) History of carpal tunnel surgery of right wrist Hyperlipidemia Impaired mobility and endurance Localized edema Lumbar radiculopathy Morbid obesity with body mass index (BMI) of 45.0 to 49.9 in adult ([facility]) Paresthesia of skin Primary osteoarthritis of both knees S/P drug eluting coronary stent placement Ulcer of foot due to type 2 diabetes mellitus ([facility]) Pericardial effusion CAD in [place] artery Coronary artery disease Coronary artery disease involving [place] coronary artery of [place] heart with other form of angina pectoris ([facility]) Chronic systolic heart failure ([facility]) Combined forms of age-related cataract of both eyes History of lumbar fusion Nonexudative age-related macular degeneration Thyroid disease Angina pectoris ([facility]) Past Medical History: Diagnosis Date Abnormal ECG CHF (congestive heart failure) ([facility]) Coronary artery disease Diabetes mellitus ([facility]) Gout Hypertension Myocardial infarction ([facility]) Sleep apnea Past Surgical History: Procedure Laterality Date BACK SURGERY CARDIAC CATHETERIZATION CARPAL TUNNEL RELEASE HYSTERECTOMY THYROID SURGERY Precautions Precautions Medical Precautions: fall risk, oxygen (2LO2) Pain Pain Assessment Pain Score: 2 (chronic LBP/baseline and left flank pain when coughing) Cognition Cognition Overall Cognitive Status: Within Functional Limits General Assessment General Assessment Hearing: (mild lower [place]) Hand Dominance: Right Home Living Home Living Type of Home: House Lives With: Significant other Home Adaptive Equipment: Walker rolling, Rollator (sc, gb, [facility]) Home Layout: One level Home Access: Stairs to enter with rails (4) Bathroom Shower/Tub: Walk-in shower Prior Level of Function Prior Function Level of [place]: Independent with ADLs and functional transfers, Independent with homemaking with ambulation (drives) Prior Functional Mobility: Independent with rolling walker Prior IADLs IADL History Homemaking Responsibilities: Yes Meal Prep Responsibility: Secondary Static Sitting Balance Static Sitting Balance Static Sitting-Level of Assistance: Independent Dynamic Sitting Balance Dynamic Sitting Balance Dynamic Sitting Balance-Level of Assistance: Close supervision Static Standing Balance Static Standing Balance Static Standing-Level of Assistance: Minimum assistance (rw) Dynamic Standing Balance ADL ADL LE Dressing Assistance: Minimal Bed Mobility Transfers Transfers Transfer: (min A supine to sit EOB, min A with RW: sit to stand , standing three minutes, take a few steps to chair and sit) Objective General Assessments Activity Tolerance Endurance: Stage II Vision - Basic Assessment Current Vision: No visual deficits Sensation Light Touch: No apparent deficits (BUE) Coordination Movements are Fluid and Coordinated: Yes Extremity Assessments RUE Assessment RUE Assessment: Within Functional Limits LUE Assessment LUE Assessment: Within Functional Limits Outcome Assessments AM-PAC 6 Clicks Putting on and taking off regular lower body clothing?: A Little (Min Assist/Contact Guard/Supervision) Bathing(Including washing,rinsing,drying)?: A Little (Min Assist/Contact Guard/Supervision) Toileting, which includes using the toilet,bedpan,or urinal?: A Little (Min Assist/Contact Guard/Supervision) Putting on and taking off regular upper body clothing?: None (Independent) Taking care of personal grooming such as brushing teeth?: None (Independent) Eating meals?: None (Independent) Total Score OT [facility]: 21 Assessment/Plan OT Assessment OT Impairments: Decreased ADL status, Decreased endurance, Decreased functional mobility 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 Summary: (needs skilled OT due to weakness and fatigue) Prognosis: Good Evaluation/Treatment Tolerance: Patient limited by fatigue Medical Staff Made Aware: Yes OT Education/Comments: (bed mob , LB adl and adl transfer safety / techique with good return demo) Plan Level of assist: 1 assist Treatment Interventions: ADL retraining, Functional transfer training, Endurance training, Patient/family training, Neuromuscular reeducation, Compensatory technique education OT Plan: Skilled OT OT Frequency: 5 times per week until discharge & PRN OT Discharge Recommendations: Home OT - Discharge Recommendations Placed: Yes OT Goals Multi-Disciplinary Problems (from Occupational Therapy) Active Problems Problem: Balance Start Date: 04/20/24 Goal Start Date Expected End Date End Date LTG - Patient will maintain stand balance to allow for safe mobility 04/20/24 05/04/24 -- Problem: Bathing Start Date: 04/20/24 Goal Start Date Expected End Date End Date LTG - Patient will utilize adaptive techniques to bathe body with no assistance 04/20/24 05/04/24 -- Problem: Dressings Lower Extremities Start Date: 04/20/24 Goal Start Date Expected End Date End Date LTG - Patient will dress lower body with no assistance 04/20/24 05/04/24 -- Problem: Toileting Start Date: 04/20/24 Goal Start Date Expected End Date End Date LTG - Patient will utilize adaptive techniques/equipment to complete daily toileting tasks with no assistance 04/20/24 05/04/24 -- Problem: Transfers Start Date: 04/20/24 Goal Start Date Expected End Date End Date LTG - Patient will perform bed mobility with no assistance 04/20/24 05/04/24 -- Problem: OT Misc Start Date: 04/20/24 Goal Start Date Expected End Date End Date Mod I adl transfers 50 feet and standing 10 minutes 04/20/24 05/04/24 -- 30 Observed: 04/20/2024 7:52 AM Status: COMPLETED Source: [facility] Daily Case Management Update Multidisciplinary rounds have been completed. Barriers to Discharge: Pending clinical course and improvement in clinical condition. Admitted with c/o CP, NSTEMI. Transferred from [facility]. History of cardiac stent with Impella assist in October of 2023. HFrEF. S/p heart cath. Vascular was consulted for toe callus and is recommending [facility] as Outpatient. Discharge plan is to return home when medically ready. Diet: Dietary Orders (From admission, onward) Start Ordered 04/20/24 0732 Special Kitchen Request Once Comments: Please send pancake with diet syrup, scrambled eggs, turkey links, and grapes. Thank you!!! 04/20/24 0732 04/19/24 1145 Regular Diet Diabetic Female (carb 45g/meal) Diet effective now Question Answer Comment Room Service? Yes Carbohydrate restriction: Diabetic Female (carb 45g/meal) 04/19/24 1145 Physician Expected Discharge Date: 04/23/2024 Discharge Delays: PT Six Click Score: 17 OT Six Click Score: PT Recommendations: OT Recommendations: New Consults: Therapy Orders (From admission, onward) Start Ordered 04/19/24 0537 OT eval and treat Until therapy completed Question: Reason for OT? Answer: increase adls assist 04/19/24 79723704/19/24 0536 PT eval and treat Until therapy completed Question: Reason for PT? Answer: decondtioing 04/19/24536 LIPOPROTEIN A (LPA) Collected: 04/20/2024 7:[address] atus: UNK Source: [facility] TYPE CODE TESTS RESULT OUT OF RANGE REFERENCE UNITS LAB [id number] LIPOPROTEIN A (MG/DL) IN SER/PLAS 88 High <=29 mg/dL Result Comment: Performed By : [facility] [address] [place] [address] Raw Stock Drier Tender: Chuck Burr MD, PhD CLIA Number: [id number] Performed By: #### [id number] ## ## [facility] ([employer]) [address] [place] [address] CBC WITH AUTO DIFFERENTIAL Collected: 04/20/2024 7:09 AM Status: UNK Source: [facility] TYPE CODE TESTS RESULT OUT OF RANGE REFERENCE UNITS LAB 0823586 LEUKOCYTES(10*3/ UL) IN BLOOD BY AUTOMATED COUNT 21.55 High 4.00-10.60 10*3/uL LAB 4432997 ERYTHROCYTES (10*6/UL) IN BLOOD BY AUTOMATED COUNT 4.37 3.80-5.00 10*6/uL LAB 4194033 HEMOGLOBIN (G/DL) IN BLOOD 12.4 12.0-15.0 g/dL LAB 2514033 HEMATOCRIT (%) IN BLOOD BY AUTOMATED COUNT 40.1 36.0-48.0 % LAB 0852899 ERYTHROCYTE MEAN CORPUSCULAR VOLUME (FL) BY AUTOMATED COUNT 91.8 82.0-98.0 fL LAB 6792876 ERYTHROCYTE MEAN CORPUSCULAR HEMOGLOBIN (PG) BY AUTOMATED COUNT 28.4 27.0-33.0 pg LAB 4282389 ERYTHROCYTE MEAN CORPUSCULAR HEMOGLOBIN CONCENTRATION (G/DL) BY AUTOMATED 30.9 Low 32.0-35.0 g/dL LAB 1236724 ERYTHROCYTE DISTRIBUTION WIDTH (RATIO) BY AUTOMATED COUNT 16.7 High 11.5-15.0 % LAB 9467918 PLATELETS (10*3/UL) IN BLOOD AUTOMATED COUNT 369 150-400 10*3/uL LAB 254 NRBC (PER 100 WBCS) BY AUTOMATED COUNT 0.0 0 % Performed By: #### [id number] # ### [facility] ([facility]) [address] [place] [address] [id number] GENOTYPING Collected: 4 7:09 AM Status: UNK Source: [facility] TYPE CODE TESTS RESULT OUT OF RANGE REFERENCE UNITS LAB [id number] SPECIMEN Whole Blood LAB [id number] OEW4O10 GENOTYPE *1/*17 LAB [id number] [id number] PHENOTYPE Rapid Abnormal LAB [id number] INTERPRETATION See Note Result Comment: The followin g AKG9H88 allele(s) were detected: *1/*17. This result predicts the rapid metabolizer phenotype. Recommendation: Guidelines for genotype-based dosing are published by the Clinical Pharmacogenetics Implementation Consortium(CPIC) and can be found at: https://cpicpgx.org/ and https://www.pharmgkb.org/. This result has been reviewed and approved by Abad Worthy M.D. BACKGROUND INFORMATION: DME8A10 Characteristics: The cytochrome P450 (CYP) isozyme 2C19 is involved in the metabolism of many drugs. Variants in the gene that code for NHA0S12 will influence pharmacokinetics of KOR4Z10 substrates, and may predict or explain non-standard dose requirements, therapeutic failure or adverse reactions. Inheritance: Autosomal codominant. Cause: KPN6W20 gene variants affect enzyme function. Variants Tested: (Variants are numbered according to [id number] transcript). *1: Indicative of no detected targeted variants and an assumption of functional allele. No variants detected is predictive of the *1 functional allele. EYR8S51*2: [id number], c.681G>A; [id number], c.332-23A>G IUM1M75*3: [id number], c.636G>A THV1I91*4A: [id number], c.1A>G LME2I20*4B: [id number], c.1A>G; [id number], c.-806C>T JGG9A61*5: [id number], c.1297C>T CXT2S73*6: [id number], c.395G>A RVM5W99*7: [id number], c.819+2T>A UGI2P56*8: [id number], c.358T>C DFC1G88*9: ah11902197, c.431G>A DDP5O97*17: [id number], c.-806C>T JYD0Z22*35: vv46137979, c.332-23A>G Clinical Sensitivity: Drug-dependent. Methodology: Polymerase chain reaction (PCR) and fluorescence monitoring. Analytical Sensitivity and Specificity: Greater than 99 percent. Limitations: Only the targeted PVM2J90 variants will be detected by this panel, and assumptions about phase and content are made to assign alleles. Publicly available sources such as the www.pharmvar.org or www.pharmgkb.org provide guidance on phenotype predictions and allele frequencies. Diagnostic errors can occur due to rare sequence variations. Risk of therapeutic failure or adverse reactions with ERN1L40 substrates may be affected by genetic and non-genetic factors that are not detected by this test. This result does not replace the need for therapeutic drug or clinical monitoring. Please note the information contained in this report does not contain medication recommendations, and should not be interpreted as recommending any specific medications. Any dosage adjustments or other changes to medications should be evaluated in consultation with a medical provider. This test was developed and its performance characteristics determined by [facility]. It has not been cleared or approved by the US Food and Drug Administration. This test was performed in a CLIA certified laboratory and is intended for clinical purposes. Counseling and informed consent are recommended for genetic testing. Consent forms are available online. LAB [id number] EER [id number] See Note Result Comment: Authorized i ndividuals can access the [employer] Enhanced Report using the following link: [email or web address] Performed By: [facility] [address] [place] [address] Raw Stock Drier Tender: Chuck Burr MD, PhD CLIA Number: [id number] Performed By: #### [id number] # ### [facility] (BEAKER) [address] [place] [address] HEPATIC FUNCTION PANEL Collected: 04/20/2024 7:09 AM Status: UNK Source: [facility] TYPE CODE TESTS RESULT OUT OF RANGE REFERENCE UNITS LAB 8263027 BILIRUBIN TOTAL (MG/DL) IN SER/PLAS 1.0 0.3-1.0 mg/dL LAB 5622734 BILIRUBIN DIRECT (MG/DL) IN SER/PLAS 0.2 0-0.2 mg/dL LAB 8247342 ALKALINE PHOSPHA TASE (U/L) IN SER/PLAS 105 High 34-104 U/L LAB 5830241 ASPARTATE AMINOTRANSFERASE (SGOT) (U/L) IN SER/PLAS 47 High 13-39 U/L LAB 9110395 ALANINE AMINOTRANSFERASE (SGPT) (U/L) IN SER/PLAS 42 7-52 U/L LAB 7443107 PROTEIN (G/DL) I N SER/PLAS 6.1 6.0-8.3 g/dL LAB 7005755 ALBUMIN (G/DL) I N SER/PLAS 3.3 Low 3.5-5.7 g/dL Performed By: #### [id number] ### # [facility] ([facility]) [address] [place] [address] TROPONIN I Collected: 04/20/2024 7:09 AM Status: UN K Source: [facility] TYPE CODE TESTS RESULT OUT OF RANGE REFERENCE UNITS LAB 9760352 TROPONIN I.CARDIAC (NG/ML) IN SERUM OR PLASMA 15.43 High Alert 0.00-0.04 ng/mL Result Comment: Previous res ult verified on 04/19/2024 2358 on specimen/case [id number] called with component Troponin I for procedure Troponin I with value 19.85 ng/mL. Performed By: #### [id number] ## ## [facility] ([facility]) [address] [place] [address] MANUAL DIFFERENTIAL Collected: 04/20/2024 7:[address] atus: UNK Source: [facility] TYPE CODE TESTS RESULT OUT OF RANGE REFERENCE UNITS LAB 1767 IMMATURE GRANULOCYTES/100 LEUKOCYTES IN BLOOD BY AUTOMATED COUNT 0.6 0.0-1.0 % LAB 109 VARIANT LYMPHOCYTES/100 LEUKOCYTES IN BLOOD CELLAVISION 0.0 0.0-0.0 % LAB 5651924 NEUTROPHILS (10*3/UL) IN BLOOD BY CALCULATION 18.4 High 1.6-7.6 10*3/uL LAB 7074067 LYMPHOCYTES (10*3/UL) IN BLOOD BY CALCULATION 1.14 Low 1.20-4.00 10*3/uL LAB 6335761 MONOCYTES (10*3/UL) IN BLOOD BY CALCUATION 2.00 High 0.10-1.00 10*3/uL LAB 3524457 EOSINOPHILS (10*3/UL) IN BLOOD BY CALCULATION 0.00 0.00-0.50 10*3/uL LAB 3809077 BASOPHILS (10*3/UL) IN BLOOD BY CALCULATION 0.00 0.00-0.20 10*3/uL LAB 114 VARIANT LYMPHOCYTES (10*3/UL) IN BLOOD BY CALCULATION 0.00 0.00 10*3/uL LAB 6419181 NEUTROPHILS/100 LEUKOCYTES IN BLOOD BY AUTOMATED COUNT 85.4 High 40.0-72.0 % LAB 8243400 LYMPHOCYTES/100 LEUKOCYTES IN BLOOD BY AUTOMATED COUNT 5.3 Low 20.0-45.0 % LAB 6508120 MONOCYTES/100 LEUKOCYTES IN BLOOD BY AUTOMATED COUNT 9.3 5.0-12.0 % LAB 3542487 EOSINOPHILS/100 LEUKOCYTES IN BLOOD BY AUTOMATED COUNT 0.0 0.0-6.0 % LAB 0376454 BASOPHILS/100 LEUKOCYTES IN BLOOD BY AUTOMATED COUNT 0.0 0.0-1.0 % LAB 2631 IMMATURE GRANULOCYTES (10*3/UL) IN BLOOD BY CALCULATION 0.13 0.00-0.20 10*3/uL LAB 2633 PLASMA CELLS/100 LEUKOCYTES IN BLOOD 0 0 % Performed By: #### [id number] # ### [facility] (BEAKER) [address] [place] [address] BASIC METABOLIC PANEL Collected: 2023 7:09 AM Status: UNK Source: [facility] TYPE CODE TESTS RESULT OUT OF RANGE REFERENCE UNITS LAB 5623389 SODIUM (MMOL/L) IN SER/PLAS 135 Low 136-145 mmol/L LAB 9126945 POTASSIUM (MMOL/L) IN SER/PLAS 4.0 3.5-5.1 mmol/L LAB 5598134 CHLORIDE (MMOL/L) IN SER/PLAS 102 98-107 mmol/L LAB 9156085 CARBON DIOXIDE, TOTAL (MMOL/L) IN SER/PLAS 24 21-31 mmol/L LAB 2756452 UREA NITROGEN (MG/DL) IN SER/PLAS 30 High 7-25 mg/dL LAB 0659477 CREATININE (MG/DL) IN SER/PLAS 0.93 0.60-1.20 mg/dL LAB 0524032 GLUCOSE (MG/DL) IN SER/PLAS 182 High 70-100 mg/dL LAB 2229088 CALCIUM (MG/DL) IN SER/PLAS 9.9 8.6-10.3 mg/dL LAB 2198818 ANION GAP IN SER/PLAS 13 7-20 mmol/L LAB 4321626 GLOMERULAR FILTRATION RATE ML/MIN/1.73 SQ M.PREDICTED 65.7 >60.0 mL/min/ 1.73m*2 Result Comment: [facility]???s estimated glomerular filtration rate (eGFR) will [...] disproportionately affect any one group of individuals. LAB 7035888 UREA NITROGEN/CREA TININE (MASS RATIO) IN SER/PLAS 32.3 NA Performed By: #### [id number] ### # [facility] ([facility]) [address] [place] [address] POCT GLUCOSE METER UNSOLICIT ED RESULTS Collected: 04/20/2024 6:45 AM Status: UNK Source: [facility] Order Comment: Waived Testin g in the ED is performed under the ED CLIA certificate #[id number]. TYPE CODE TESTS RESULT OUT OF RANGE REFERENCE UNITS LAB 885 POCT GLUCOSE 176 High 70-105 mg/dL Result Comment: [email or web address] Performed By: #### [id number] #### [facility] ([facility]) [address] [place] [address] POCT GLUCOSE METER UNSOLICIT ED RESULTS Collected: 04/20/2024 12:11 AM Status: UNK Source: [facility] Order Comment: Waived Testin g in the ED is performed under the ED CLIA certificate #[id number]. TYPE CODE TESTS RESULT OUT OF RANGE REFERENCE UNITS LAB 885 POCT GLUCOSE 175 High 70-105 mg/dL Result Comment: [id number] Performed By: #### [id number] #### [facility] ([facility]) [address] [place] [address] TROPONIN I Collected: 11:05 PM Status: UNK Source: [facility] TYPE CODE TESTS RESULT OUT OF RANGE REFERENCE UNITS LAB 7941118 TROPONIN I.CARDIAC (NG/ML) IN SERUM OR PLASMA 19.85 High Alert 0.00-0.04 ng/mL Result Comment: M-PREVIOUS C RITICAL RESULT Previous result verified on 04/19/2024 0818 on specimen/case [id number] called with component Troponin I for procedure Troponin I with value 17.02 ng/mL. Performed By: #### [id number] ## ## [facility] ([facility]) [address] [place] [address] 30 Observed: 04/19/2024 11:03 PM Status: COMPLETED Source: [facility] The patient is Moderately St able - Low risk of patient condition declining or worsening The patient's goals for the shift include find out answers The clinical goals for the shift include stable vitals POCT GLUCOSE METER UNSOLICIT ED RESULTS Collected: 04/19/2024 6:03 PM Status: UNK Source: [facility] Order Comment: Waived Testin g in the ED is performed under the ED CLIA certificate #[id number]. TYPE CODE TESTS RESULT OUT OF RANGE REFERENCE UNITS LAB 885 POCT GLUCOSE 266 High 70-105 mg/dL Result Comment: [email or web address] Performed By: #### [id number] #### [facility] ([facility]) [address] [place] [address] TROPONIN I Collected: 04/19/2024 5:53 PM Status: UN K Source: [facility] TYPE CODE TESTS RESULT OUT OF RANGE REFERENCE UNITS LAB 4473604 TROPONIN I.CARDIAC (NG/ML) IN SERUM OR PLASMA 15.61 High Alert 0.00-0.04 ng/mL Result Comment: M-PREVIOUS C RITICAL RESULT Previous result verified on 04/19/2024 0818 on specimen/case [id number] called with component Troponin I for procedure Troponin I with value 17.02 ng/mL. Performed By: #### [id number] ## ## [facility] ADMINISTRATION [facility]) [address] [place] [address] 30 Observed: 04/19/2024 4:54 PM Status: COMPLETED Source: [facility] The patient is Moderately St able - Low risk of patient condition declining or worsening The patient's goals for the shift include find out answers The clinical goals for the shift include stable vitals Over the shift, the patient did make progress toward the following goals. Barriers to progression include test results and repots. Recommendations to address these barriers include monitor for results and follow up with doctors Problem: Pain - Adult Goal: Verbalizes/displays adequate comfort level or baseline comfort level Outcome: Progressing . URINALYSIS WITH REFLEX CULTURE Collected: 04/19/2024 4:11 PM Status: UNK Source: [facility] Order Comment: Microscopics not performed on urines with negative chemical reactions unless requested on original order. TYPE CODE TESTS RESULT OUT OF RANGE REFERENCE UNITS LAB 9783216 COLOR OF URINE Colorless Color less, Yellow, Light-Yellow LAB 3904657 CLARITY OF URINE Clear Clear LAB 4755615 PH OF URINE 5.0 5.0-8.0 pH LAB 1900582 LEUKOCYTE ESTERASE PRESENCE IN URINE BY TEST STRIP Negative Negative LAB 9404476 NITRITE PRESENCE IN URINE Negative Negative LAB 7874717 PROTEIN (MG/DL) IN URINE BY TEST STRIP Negative Negative mg/dL LAB 9500278 GLUCOSE (MG/DL) IN URINE >=1000 Abnormal Normal mg/dL LAB 0977415 BILIRUBIN, TOTAL PRESENCE IN URINE Negative Negative LAB 9 SPECIFIC GRAVITY OF URINE 1.018 1.010-1.030 NA LAB 548 KETONES (MG/DL) IN URINE Negative Negative mg/dL LAB 549 HEMOGLOBIN PRESENCE IN URINE Negative Negative LAB 3161192 UROBILINOGEN (MG/DL) IN URINE Normal Normal mg/dL Performed By: #### [id number] # ### [facility] ([facility]) [address] [place] [address] TROPONIN I Collected: 04/19/2024 3:53 PM Status: UN K Source: [facility] TYPE CODE TESTS RESULT OUT OF RANGE REFERENCE UNITS LAB 7813000 TROPONIN I.CARDIAC (NG/ML) IN SERUM OR PLASMA 19.98 High Alert 0.00-0.04 ng/mL Result Comment: M-PREVIOUS C RITICAL RESULT Previous result verified on 04/19/2024 0818 on specimen/case [id number] called with component Troponin I for procedure Troponin I with value 17.02 ng/mL. Performed By: #### [id number] ## ## [facility] ([facility]) [address] [place] [address] CONSULT Observed: 04/19/2024 2:18 PM Status: COMPLETED Source: [facility] Vascula r Surgery/Wound Care CONSULTATION Reason for Consult: Deep tissue injury and diabetic ulcers Subjective History of Present Illness: Laura Lawson is a 73 y.o. female with a PMH of HTN, DM, hyperlipidemia, CAD s/p PCI to LAD, RCA on 10/2023 and heart failure. She was transferred to [facility] from [facility] for NSTEMI. Patient states she has been following with [facility] Pod[facility] for the wounds to her left 2nd and 3rd toe for over 3 years. Previous treatment has included shaving off the top layer of skin which patient states has never provided relief. Patient denies pain to left 3rd and toe wounds. Patient unsure when pressure ulcer to sacrum first appeared. Patient is ambulatory at home. Denies pain to sacral area. Patient reporting wearing briefs at home but reports irritation to right inner thigh irritation since wearing hospital style briefs. Patient with no recent vascular imaging. Review of Systems Constitutional: Negative for chills and fever. Respiratory: Positive for shortness of breath. Cardiovascular: Positive for leg swelling. Negative for chest pain. Gastrointestinal: Negative for abdominal pain. Skin: Positive for wound. Past Medical History: Diagnosis Date Abnormal ECG CHF (congestive heart failure) (CMS/HCC) Coronary artery disease Diabetes mellitus (CMS/HCC) Gout Hypertension Myocardial infarction (CMS/HCC) Sleep apnea Past Surgical History: Procedure Laterality Date BACK SURGERY CARDIAC CATHETERIZATION CARPAL TUNNEL RELEASE HYSTERECTOMY THYROID SURGERY Allergies Allergen Reactions Gabapentin Palpitations Other reaction(s): Chest Pain Tramadol Other Other reaction(s): sleeplessness Current Facility-Administered Medications: allopurinol (Zyloprim) tablet 300 mg, 300 mg, oral, Daily, Joshua Grider MD, 300 mg at 04/19/24 1008 aspirin chewable tablet 81 mg, 81 mg, oral, Daily, Joshua Grider MD, 81 mg at 04/19/24 1008 baclofen (Lioresal) tablet 10 mg, 10 mg, oral, Nightly, Joshua Grider MD clopidogrel (Plavix) tablet 75 mg, 75 mg, oral, Once Daily, Joshua Grider MD, 75 mg at 04/19/24 0845 colchicine tablet 0.6 mg, 0.6 mg, oral, Daily, Sofiya Rosado MD, 0.6 mg at 04/19/24 1152 dapagliflozin propanediol (Farxiga) tablet 10 mg, 10 mg, oral, Daily, Joshua Grider MD, 10 mg at 04/19/24 1008 ezetimibe (Zetia) tablet 10 mg, 10 mg, oral, Daily, Joshua Grider MD, 10 mg at 04/19/24 1008 furosemide (Lasix) injection 40 mg, 40 mg, intravenous, Daily, Joshua Grider MD, 40 mg at 04/19/24 1135 hydrALAZINE (Apresoline) tablet 25 mg, 25 mg, oral, BID, Joshua Grider MD, 25 mg at 04/19/24 1008 insulin glargine (Lantus) injection vial 80 Units, 80 Units, subcutaneous, q AM, Joshua Grider MD insulin lispro (HumaLOG) injection 0-10 Units, 0-10 Units, subcutaneous, q6h FRANNY, Joshua Grider MD, 4 Units at 04/19/24 1253 metoprolol succinate XL (Toprol-XL) 24 hr tablet 50 mg, 50 mg, oral, Daily, Sofiya Rosado MD, 50 mg at 04/19/24 1152 nitroglycerin (Nitrostat) SL tablet 0.4 mg, 0.4 mg, sublingual, q5 min PRN, Joshua Grider MD potassium chloride CR (Klor-Con M20) ER tablet 20 mEq, 20 mEq, oral, Daily with breakfast, Joshua Grider MD, 20 mEq at 04/19/24 0846 pregabalin (Lyrica) capsule 25 mg, 25 mg, oral, BID, Joshua Grider MD, 25 mg at 04/19/24 1010 rosuvastatin (Crestor) tablet 20 mg, 20 mg, oral, Daily, Sofiya Rosado MD, 20 mg at 04/19/24 1152 sacubitril-valsartan (Entresto) 49-51 mg per tablet 1 tablet, 1 tablet, oral, BID, Joshua Grider MD, 1 tablet at 04/19/24 1008 Insert peripheral IV, , , Once AND Saline lock IV, , , Once AND sodium chloride flush 10 mL, 10 mL, intravenous, q8h PRN, Joshua Grider MD spironolactone (Aldactone) tablet 25 mg, 25 mg, oral, Once Daily, Joshua Grider MD, 25 mg at 04/19/24 0845 Social History Socioeconomic History Marital status: Single Spouse name: Not on file Number of children: Not on file Years of education: Not on file Highest education level: Not on file Occupational History Not on file Tobacco Use Smoking status: Never Smokeless tobacco: Never Substance and Sexual Activity Alcohol use: Not Currently Drug use: Not on file Sexual activity: Not on file Other Topics Concern Not on file Social History Narrative Not on file Social Determinants of Health Financial Resource Strain: Low Risk (04/19/2024) Overall Financial Resource Strain (CARDIA) Difficulty of Paying Living Expenses: Not hard at all Food Insecurity: No Food Insecurity (04/19/2024) Hunger Vital Sign Worried About Running Out of Food in the Last Year: Never true Ran Out of Food in the Last Year: Not on file Transportation Needs: No Transportation Needs (04/19/2024) Transportation Lack of Transportation (Medical): No Lack of Transportation (Non-Medical): Not on file Physical Activity: Not on file Stress: Not on file Social Connections: Not on file Intimate Partner Violence: Unknown (04/19/2024) Humiliation, Afraid, Rape, and Kick questionnaire Fear of Current or Ex-Partner: No Emotionally Abused: Not on file Physically Abused: Not on file Sexually Abused: Not on file Housing Stability: Low Risk (04/19/2024) Housing Stability Vital Sign Unable to Pay for Housing in the Last Year: Not on file Number of Places Lived in the Last Year: Not on file Unstable Housing in the Last Year: No Family History Problem Relation Name Age of Onset JABARI disease Mother Heart attack Father Objective Physical Exam Constitutional: Appearance: Normal appearance. HENT: Head: Normocephalic and atraumatic. Cardiovascular: Comments: Nonpalpable DP and PT pulses bilaterally Pulmonary: Comments: On BiPAP Abdominal: Palpations: Abdomen is soft. Tenderness: There is no abdominal tenderness. Musculoskeletal: Right lower leg: Edema present. Left lower leg: Edema present. Skin: Findings: Lesion present. Comments: Left foot 2nd and 3rd toes: Plantar surface. Firm, immobile, thickened area of skin overlying brown spot. No underlying fluctuance, bogginess, expressible purulence. No erythema, calor, induration to rosibel-wound. Sacrum: No open ulcers. Area of erythema to sacrum. No underlying fluctuance, bogginess, expressible purulence. No erythema, calor, induration to rosibel-wound. Right inner thigh: Small area of erythema and skin tear without drainage, underlying fluctuance, bogginess, expressible purulence. No erythema, calor, induration to rosibel-wound. Bilateral LE swelling and hyperpigmentation Neurological: General: No focal deficit present. Mental Status: She is alert and oriented to person, place, and time. Psychiatric: Mood and Affect: Mood normal. Behavior: Behavior normal. R inner thigh Left 2nd and 3rd toes Sacrum Vital Signs: Blood pressure 124/58, pulse 71, temperature 36.7 ???C (98.1 ???F), temperature source Temporal, resp. rate 14, height 1.575 m (5' 2.01 ), weight 110 kg (243 lb), SpO2 100 %. Admission Weight: Weight: 110 kg (243 lb) Labs Lab Results Component Value Date WBC 23.34 (H) 04/19/2024 HGB 12.3 04/19/2024 HCT 40.1 04/19/2024 MCV 93.5 04/19/2024 PLT 312 04/19/2024 Lab Results Component Value Date CALCIUM 9.8 04/19/2024 NA 134 (L) 04/19/2024 K 4.4 04/19/2024 CO2 21 04/19/2024 CL 102 04/19/2024 BUN 26 (H) 04/19/2024 CREATININE 0.90 04/19/2024 No results found for: AMYLASE No results found for: LIPASE Lab Results Component Value Date ALT 63 (H) 04/19/2024 AST 77 (H) 04/19/2024 ALKPHOS 107 (H) 04/19/2024 No results found for: INR , PROTIME Imaging Complete Echo (TTE) w/wo Imaging Agent, Strain, 3D, Bubble Study 1 1 [facility] [address] [place] [address] [phone] (fax) Echocardiogram-[facility] Name: LAURA LAWSON Study Date: 04/19/2024 09:43 AM B/P: 112 mmHg/61 mmHg HR: 73 bpm Date of : 1950 Location: [facility] Height: 62 in. Age: 73 year(s) Patient Room: 3107 Weight: 243 lb. Gender: Female Patient Status: InPt BSA: 2.08 m2 Indication: Chest Pain, Non-STEMI, stents Examination: Echocardiogram (Complete), Lumason Contrast Image Quality: Fair Patient Consent: Procedure explained to patient Exam Details Contrast: I.V. dose of Lumason Conclusions Left Ventricle: The left ventricle is mildly enlarged. Global left ventricular systolic function is severely reduced. The EF is 20 % visually. Left ventricular wall thickness is increased. Regional wall motion abnormalities (see diagram). Right Ventricle: The right ventricle appears enlarged. Right ventricular systolic function appears reduced. Unable to assess right sided pressures due to lack of measurable tricuspid regurgitation. Left Atrium: The left atrium is mildly enlarged. Mitral Valve: Mild mitral regurgitation. Overall Conclusions: Due to suboptimal imaging Lumason contrast was administered for opacification and better delineation of endocardial borders. Measurements Left Ventricle Label Value Normal Value LVOTd 1.7 cm (18cm - 20cm) LVOT VTI 14.4 cm (18cm - 22cm) LVOT PGmax 2 mmHg LVEF visual 20 % LVDd, 2D 5.75 cm (3.9cm - 5.3cm) IVSd, 2D 0.9 cm (0.6cm - 1.1cm) LVPWd, 2D 1.2 cm (0.6cm - 0.9cm) LV Mass, 2D ASE 244.9 g LV Mass Index, 2D ASE 117.7 g/m?? (44g/m?? - 88.4g/m??) RWT, MM 0.42 (0 - 0.42) LVOT PGmean 1 mmHg LVSV_LVOT 33 ml Right Ventricle Label Value Normal Value TAPSE 1.4 cm Left Atrium Label Value Normal Value LA Volume, BP 75 ml (22ml - 52ml) LAESV index, BP 36.1 ml/m?? Right Atrium Label Value Normal Value RA Area 18.4 cm?? Aortic Valve Label Value Normal Value AV DVI 0.65 AV VTI 22.1 cm Mitral Valve Label Value Normal Value MV E Vmax 1.08 m/s MV A Vmax 0.98 m/s MV E/A 1.1 MV E/E' lateral 17.9 MV E' lateral 0.06 m/s Great Vessels Label Value Normal Value IVC 2.8 cm (1.2cm - 2.3cm) Valvular Assessment LVOT 0.7 - 1.1 m/sec Aortic Valve 1.0 - 1.7 m/sec Mitral Valve 0.6 - 1.3 m/sec Tricuspid Valve 0.3 - 0.7 m/sec Pulmonic Valve 0.6 - 0.9 m/sec Regurgitation No Mild No Trivial Stenosis No No No No Max Velocity 0.74 m/sec 1.14 m/s 1.08 m/sec 0.69 m/s Max Gradient 5.00 mmHg 7.00 mmHg 2.00 mmHg Mean Gradient 3.00 mmHg 3.00 mmHg Valve Area 1.5 cm?? 3.6 cm?? Findings Left Ventricle: The left ventricle is mildly enlarged. Global left ventricular systolic function is severely reduced. The EF is 20 % visually. Left ventricular wall thickness is increased. Regional wall motion abnormalities (see diagram). The basal anterior, basal anteroseptal, basal inferoseptal, basal inferior, basal inferolateral, basal anterolateral, mid anteroseptal, mid inferoseptal, mid inferior and mid inferolateral left ventricular wall segments are hypokinetic. The mid anterior, mid anterolateral, apical anterior, apical septal, apical inferior, apical lateral and apex left ventricular wall segments are akinetic. Right Ventricle: The right ventricle appears enlarged. Right ventricular systolic function appears reduced. Unable to assess right sided pressures due to lack of measurable tricuspid regurgitation. Left Atrium: The left atrium is mildly enlarged. Right Atrium: The right atrium is at upper nomal limits in size. Mitral Valve: Calcified chordal apparatus. There is nonspecific thickening of the mitral valve leaflet. Mild mitral regurgitation. No mitral valve stenosis. There is moderate mitral annular calcification. Mitral Valve Measurements MV Vmax: 1.36 m/s. MV Vmean: 0.85 m/s. MV PGmax: 7.00 mmHg. MV PGmean: 3.00 mmHg. Aortic Valve: Focal aortic cusp thickening is noted. No aortic valve regurgitation. No aortic valve stenosis. Tricuspid Valve: Normal tricuspid valve. No tricuspid regurgitation. No tricuspid valve stenosis. Pulmonic Valve: Normal pulmonary valve. Trivial pulmonary regurgitation. No pulmonic valve stenosis. Aorta: The aortic root is not well visualized. Great Vessels: IVC: The IVC is dilated. Respiratory inspiration less than 50%. Pericardium: Anterior free space is seen; effusion versus fat pad. Procedure Staff Reading Group: [facility] Contractor: RONI Montero, RDCS Ordering Physician: YARELI ROUSE Wall Motion Scores -1 - hyperkinesia, 0 - not evaluated, 1 - normal, 2 - hypokinesia, 3 - akinesia, 4 - dyskinesia Cardiac catheterization PROCEDURE PHYSICIAN: Sofiya Rosado MD Clinical Presentation: 73 y.o. Female with history of CAD s/p multivessel PCI 10/2023 (complex PCI LAD and RCA), morbid obesity, HFrEF, and diabetes. She is admitted with chest pain and diagnosed with NSTEMI. Troponin peaked at 17 this morning. She is brought urgently to the cardiac cardiac cath rn for high risk NSTEMI. Final Impression: 1) 90% in-stent restenosis of the mid LAD s/p scoring balloon angioplasty 2) RCA stents are patent 3) LCX is diffusely diseased and stable in appearance compared with prior angiogram Plan: 1) optimal med therapy for CAD s/p PCI and HFrEF 2) Aspirin and Brilinta for DAPT 3) high intensity statin therapy and ezetimibe; lipid are at goal with LDL 41 mg/dL and non-HDL cholesterol 57 mg/dL 4) add colchicine 0.6 mg once daily for anti-ISR treatment; I had to change atorvastatin to rosuvastatin and carvedilol to metoprolol to avoid drug interactions with colchicine 5) patient has diabetes and CAD and BMI >40; she is strongly indicated for GLP-1 agonist, semaglutide, for treatment of diabetes and reduction of AK and CVA risk 6) referral to cardiac rehab 7) close outpatient follow up with [facility] 8) check Lp(a) and HbA1c and [id number] genotype (I placed orders for these tests) 9) if she has recurrent ISR in the future, then IVUS-guided drug coated balloon (DCB) angioplasty can be utilized Procedures Performed: coronary angiogram, angioplasty LAD for severe ISR, conscious sedation 33 min Procedure Description: The patient was brought to the cardiac catheterization lab in a fasting state. Informed written consent was obtained. she was prepped and draped in usual sterile fashion over the left wrist and bilateral groins. Time-out was performed. she was given Versed and fentanyl for sedation. 1% lidocaine was infiltrated over the left radial artery. A 6-Brazilian CAD Bestumo Glidesheath slender was placed in left radial artery. Radial anti-vasospasm cocktail of verapamil 2.5 mg and nitroglycerin 200 mcg was administered through the sheath. All catheter exchanges were made over the Ramon guidewire. Coronary angiogram was performed with a 6 Brazilian flipClasstronic EBU 3.5 guide to engage the left main and a JR4 guide to engage the RCA. Coronary angiogram was performed in multiple orthogonal views. At this time, it was apparent that the LAD had severe stenosis with 90% ISR in the mid LAD. I decided to proceed with angioplasty. Heparin anticoagulation was used for this procedure. ACT was maintained at >250 seconds. I then advanced a Runthrough wire to the distal left anterior descending. Next, I proceeded with dilatation with a ScoreFlex 3.0 x 10 mm scoring balloon at 20-22 jamaal with a good result. The apical LAD had diffuse stenosis as well. I used an Emerge 2.0 x 15 mm balloon at 6 jamaal with limited benefit and then decided not to treat further given the apical location. At this point, the final result was very good. There was 0% residual stenosis and normal LUIS III flow throughout the LAD and its branches. All catheters and wires were removed. The left radial sheath was removed and a TR band was applied to obtain hemostasis. Specimens Removed: None Complications: None Coronary Angiogram: Left main: large caliber left main; the [...] 3 is a small caliber vessel and diffusely diseased. The distal circumflex is occluded. RCA: the RCA is a moderate size vessel and is patent. There are previously stents throughout the entire proximal and mid and distal RCA. The stents are patent. The outflow of the RCA including the PDA and REMEDIOS are small caliber vessels with diffuse disease. ECG 12 lead Normal sinus rhythm Non-specific intra-ventricular conduction block Lateral infarct (cited on or before 03-JUL-2023) Inferior injury pattern ACUTE AK / STEMI Consider right ventricular involvement in acute inferior infarct Abnormal ECG When compared with ECG of 08-OCT-2023 17:49, Significant changes have occurred Confirmed by Josh ROUSE, YARELI Velazquez ([id number]) on 04/19/2024 9:43:08 AM Active Inpatient Problems Principal Problem: Angina pectoris (CMS/HCC) Vascular/Wound Care Assessment/Plan #Callus to left 2nd and 3rd toes #Stage 1 pressure ulcer to sacrum #Skin tear to right inner thigh #BLE CVI Wounds are dry and stable. They do not appear infected and do not need surgical debridement Topical therapy Left 2nd and 3rd toes: Leave open to air Sacrum: Foam every other day and PRN Right inner thigh: Barrier cream daily and PRN Optimize nutrition Tight glycemic control. Last A1C 10.4 In September 2023. Redrawn today results pending. Glucose has been elevated this admission at 260 and 212. Offloading. Turn every 2 hours with TAP system Gaymer overlay Patient would benefit from SYDNEY to assess circulation. This is non urgent and can be done when out of ICU. Patient would benefit from venous reflux studies based off symptoms outpatient. Thank you for the consult. We will follow Mayuri Downey PA-C Vascular/Wound Service Please direct primary wound calls to: [phone] Please direct primary vascular calls to: [phone] This note was created with the assistance of a speech-recognition program. While intending to generate a document that accurately reflects the content of the encounter, no guarantee can be provided that every mistake has been identified and corrected by editing Inpatient consult to Vascular Wound Care Consult performed by: Mayuri Downey PA-C Consult ordered by: Sofiya Rosado MD TROPONIN I Collected: 12:29 PM Status: UNK Source: [facility] TYPE CODE TESTS RESULT OUT OF RANGE REFERENCE UNITS LAB [id number] TROPONIN I.CARDIAC (NG/ML) IN SERUM OR PLASMA 17.84 High Alert 0.00-0.04 ng/mL Result Comment: Previous res ult verified on 04/19/2024 0818 on specimen/case [id number] called with component Troponin I for procedure Troponin I with value 17.02 ng/mL. Performed By: #### [id number] ## ## [facility] ([facility]) [address] [place] [address] POCT GLUCOSE METER UNSOLICIT ED RESULTS Collected: 04/19/2024 12:25 PM Status: UNK Source: [facility] Order Comment: Waived Testin g in the ED is performed under the ED CLIA certificate #[id number]. TYPE CODE TESTS RESULT OUT OF RANGE REFERENCE UNITS LAB 885 POCT GLUCOSE 212 High 70-105 mg/dL Result Comment: [email or web address] Performed By: #### [id number] #### [facility] ([facility]) [address] [place] [address] PROGRESS Observed: 04/19/2024 11:45 AM Status: COMPLETED Source: [facility] Consult to cardiology pharma cist to see if she can be treated with Ozemipic for diabetes and CAD Titrate as tolerated Also, please do med reconciliation and education Diagnosis Plan 1. Coronary artery disease involving gambell coronary artery of gambell heart with other form of angina pectoris ([facility]/HCC) Ambulatory referral to Cardiology Pharmacist 2. Diabetes mellitus type II, non insulin dependent ([facility]) 3. NSTEMI (non-ST elevated myocardial infarction) ([facility]) Ambulatory referral to Cardiology Pharmacist 4. Status post insertion of drug eluting coronary artery stent Ambulatory referral to Cardiology Pharmacist5. Diabetes mellitus due to underlying condition with other circulatory complication, with long-term current use of insulin ([facility]) Ambulatory referral to Cardiology Pharmacist CONSULT Observed: 04/19/2024 11:24 AM Status: COMPLETED Source: [facility] Attestation signed by Sofiya Rosado MD at 04/19/2024 11:42 AM By using the attestations below, the signing clinician agrees that I have read and verify that the documentation has been personally reviewed by me and ensure that the documentation accurately reflects the encounter. GC: I personally saw this patient on the day of the encounter, performed the brooks portion(s) of the service and participated in the management and confirm the resident's documentation. Please note there may be an additional personal documentation from me. Additional Comments: Patient presented with high risk NSTEMI with rapidly rising troponin. She is brought to cardiac catheterization lab emergently. Angiogram showed 90% in-stent restenosis of the mid LAD which was treated with scoring balloon angioplasty see my procedure report under the cardiology tab for full details I have changed her DAPT to aspirin and Brilinta I have added colchicine for anti-ISR treatment and changed other medications to avoid drug interactions. Her statin will be rosuvastatin and her beta-sierra will be Toprol XL Outpatient follow-up with [facility] and cardiology pharmacist for treatment with semaglutide or tirzepatide for morbid obesity, diabetes, and CAD continue current GDMT for HFrEF including Toprol-XL, Entresto, spironolactone, Farxiga Sofiya Rosado MD pipeline technician Interventional Cardiology [facility] Pager: [phone] Cardiology Consult Note Reason for Consult: chest pain HPI: Laura Lawson is a 73 y.o. female with past history remarkable for primary hypertension, type 2 diabetes mellitus, mixed hyperlipidemia, coronary artery disease status post PCI to LAD, RCA on 10/2023, chronic heart failure with improved ejection fraction 45% previously 30%, who presented to [facility] after transfer from [facility] where she initially presented with left-sided chest pain, found to have elevated high-sensitivity troponin and was transferred to [facility]. During my evaluation today, patient was complaining of chest pain left-sided in location, moderate in intensity, with no radiation. With no otherassociated symptoms. Her initial troponin was 17. Cardiology team consulted for further evaluation and management Cardiology ROS: Review of Systems Constitutional: Negative for activity change and appetite change. Respiratory: Negative for chest tightness, shortness of breath and wheezing. Cardiovascular: Positive for chest pain. Negative for palpitations and leg swelling. Gastrointestinal: Negative for abdominal pain, nausea and vomiting. Neurological: Negative for dizziness and light-headedness. Past Medical History She has a past [...] JABARI disease Mother Heart attack Father Allergies Gabapentin and Tramadol Medications Current Outpatient Medications Medication Instructions allopurinol (ZYLOPRIM) 300 mg, oral, Daily aspirin 81 mg, oral, Daily atorvastatin (LIPITOR) 80 mg, oral, Nightly baclofen (LIORESAL) 10 mg, oral, Nightly candesartan (ATACAND) 32 mg, oral, Daily carvedilol (COREG) 6.25 mg, oral, 2 times daily clopidogrel (PLAVIX) 75 mg, oral, Once Daily dapagliflozin propanediol (FARXIGA) 10 mg, oral, Daily ezetimibe (ZETIA) 10 mg, oral, Daily hydrALAZINE (APRESOLINE) 25 mg, oral, 2 times daily insulin lispro (HumaLOG) 100 unit/mL injection 3 times daily with meals, Patient reports taking three times daily 15 minutes before meals. Sliding scale meloxicam (MOBIC) 15 mg, oral, Daily nitroglycerin (Nitrostat) 0.3 mg SL tablet nitroglycerin 0.3 mg sublingual tablet omeprazole (PriLOSEC) [address] capsule No dose, route, or frequency recorded. potassium chloride CR (Klor-Con M20) 20 mEq ER tablet Every 12 hours pregabalin (LYRICA) 25 mg, oral, 2 times daily sacubitril-valsartan (Entresto) 49-51 mg tablet 1 tablet, oral, 2 times daily, Replacing candesartan spironolactone (ALDACTONE) 25 mg, oral, Once Daily torsemide (DEMADEX) 20 mg, oral, Daily Toujeo Max U-300 SoloStar 100 Units, subcutaneous, Daily Trulicity 1.5 mg, subcutaneous, Weekly Medications Prior to Admission Medication Sig Dispense Refill Last Dose pregabalin (Lyrica) 25 mg capsule Take 25 mg by mouth two times daily. allopurinol (Zyloprim) 300 mg tablet Take 300 mg by mouth in the morning. 04/18/2024 aspirin 81 mg EC tablet Take 81 mg by mouth in the morning. 04/18/2024 atorvastatin (Lipitor) 80 mg tablet Take 1 tablet (80 mg) by mouth at bedtime. 90 tablet 3 04/18/2024 baclofen (Lioresal) 10 mg tablet Take 10 mg by mouth at bedtime. 04/18/2024 candesartan (Atacand) 32 mg tablet Take 32 mg by mouth in the morning. carvedilol (Coreg) 6.25 mg tablet Take 1 tablet (6.25 mg) by mouth in the morning and at bedtime for 189 doses. 60 tablet 3 04/18/2024 clopidogrel (Plavix) 75 mg tablet Take 1 tablet (75 mg) by mouth once daily as directed for 360 doses. 90 tablet 3 04/18/2024 dapagliflozin propanediol (Farxiga) 10 mg Take 1 tablet (10 mg) by mouth in the morning for 94 doses. Do not start before July 08, 2023. 30 tablet 3 04/18/2024 ezetimibe (Zetia) 10 mg tablet Take 1 tablet (10 mg) by mouth in the morning. 90 tablet 3 hydrALAZINE (Apresoline) 25 mg tablet Take 1 tablet (25 mg) by mouth in the morning and at bedtime. 180 tablet 3 04/18/2024 insulin lispro (HumaLOG) 100 unit/mL injection with breakfast, with lunch, and with evening meal. Patient reports taking three times daily 15 minutes before meals. Sliding scale meloxicam (Mobic) 15 mg tablet Take 15 mg by mouth in the morning. 04/18/2024 nitroglycerin (Nitrostat) 0.3 mg SL tablet nitroglycerin 0.3 mg sublingual tablet Past Month omeprazole (PriLOSEC) [address] capsule Past Week potassium chloride CR (Klor-Con M20) 20 mEq ER tablet every 12 (twelve) hours. 04/18/2024 sacubitril-valsartan (Entresto) 49-51 mg tablet Take 1 tablet by mouth in the morning and at bedtime. Replacing candesartan 180 tablet 1 04/18/2024 spironolactone (Aldactone) 25 mg tablet Take 1 tablet (25 mg) by mouth once daily as directed for 360 doses. 90 tablet 3 04/18/2024 torsemide (Demadex) 20 mg tablet Take 20 mg by mouth in the morning. Past Week Toujeo Max U-300 SoloStar 300 unit/mL (3 mL) injection Inject 100 Units under the skin in the morning. Trulicity 1.5 mg/0.5 mL pen injector Inject 1.5 mg under the skin 1 (one) time per week. 04/18/2024 Last Recorded Vitals Patient Vitals for the past 24 hrs: BP Temp Temp src Pulse Resp SpO2 Height Weight 04/19/24 1104 126/76 -- -- 69 16 99 % -- -- 04/19/24 1028 -- -- -- -- -- 100 % -- -- 04/19/24 1026 153/76 -- -- 77 16 98 % -- -- 04/19/24 0945 112/61 -- -- 73 26 95 % -- -- 04/19/24 0938 128/67 -- -- 79 23 95 % -- -- 04/19/24 0800 111/56 36.7 ???C (98.1 ???F) Temporal 72 14 97 % -- -- 04/19/24 0516 -- -- -- -- -- -- 1.575 m (5' 2.01 ) 110 kg (243 lb) 04/19/24 0450 114/55 36.7 ???C (98 ???F) Temporal 71 18 95 % -- -- Physical Examination: Physical Exam Constitutional: General: She is not in acute distress. Appearance: Normal appearance. She is not ill-appearing. HENT: Head: Normocephalic and atraumatic. Cardiovascular: Rate and Rhythm: Normal rate and regular rhythm. Heart sounds: Normal heart sounds. No murmur heard. Pulmonary: Breath sounds: Normal breath sounds. No wheezing or rales. Abdominal: Palpations: Abdomen is soft. Tenderness: There is no abdominal tenderness. Musculoskeletal: Right lower leg: Edema present. Left lower leg: Edema present. Skin: General: Skin is warm and dry. Findings: No erythema or rash. Neurological: Mental Status: She is alert and oriented to person, place, and time. Mental status is at baseline. Relevant Lab Results Encounter Date: 04/19/24 ECG 12 lead Result Value Ventricular Rate 64 Atrial Rate 64 NC Interval 202 QRS DURATION 130 QT Interval 452 QTC CALCULATION(BAZETT) 466 P [place] 42 R-[place] 123 T Wave [place] 183 Impression Normal sinus rhythm Non-specific intra-ventricular conduction block Lateral infarct (cited on or before 03-JUL-2023) Inferior injury pattern ACUTE AK / STEMI Consider right ventricular involvement in acute inferior infarct Abnormal ECG When compared with ECG of 08-OCT-2023 17:49, Significant changes have occurred Confirmed by Josh ROUSE, YARELI Velazquez ([id number]) on 04/19/2024 9:43:08 AM Lab Results Component Value Date CKTOTAL 467.0 (H) 04/19/2024 TROPONINI 13.04 (HH) 04/19/2024 Transthoracic echo (TTE) limited Result Date: 09/09/2023 1 1 [facility] [address] [place] [address] [phone] (fax) [facility]ocardiogram[facility] Name: LAURA LAWSON Study Date: 09/09/2023 03:21 PM B/P: 146 mmHg/56 mmHg HR: Date of : 1950 Location: [facility] Height: 62 in. Age: 72 year(s) Patient Room: 3133 Weight: 226 lb. Gender: Female Patient Status: InPt BSA: 2.01 m2 Indication: CHF with low ejection fraction, S/P Cath Examination: Limited Echo, Lumason Contrast Image Quality: Technically Difficult study Patient Consent: Procedure explained to patient Exam Details Technical Limitations: Echocardiographic views were limited by poor acoustic window availability Conclusions Left Ventricle: The left ventricle appears normal in size. Global left ventricular systolic function is difficult to assess but appears reduced. Left ventricular wall thickness is increased. Left Atrium: The left atrium appears enlarged. Overall Conclusions: Due to suboptimal imaging Lumason contrast was administered for opacification and better delineation of endocardial borders. Findings Left Ventricle: The left ventricle appears normal in size. Global left ventricular systolic function is difficult to assess but appears reduced. Left ventricular wall thickness is increased. Right Ventricle: Right ventricle is poorly visualized. Left Atrium: The left atrium appears enlarged. Right Atrium: The right atrium appears normal in size. Mitral Valve: There is nonspecific thickening of the mitral valve leaflet. Aortic Valve: Aortic valve is poorly visualized. Tricuspid Valve: Tricuspid valve appears normal. Pulmonic Valve: Pulmonic valve is poorly visualized. Aorta: The aortic root exhibits normal size. Great Vessels: IVC: Normal size and course of the IVC. Pericardium: There is a minimal pericardial effusion. Procedure Staff Reading Group: [facility] [place] Contractor: Nallely Azar RDCS Ordering Physician: JOSHUA GRIDER Electronically signed by MD Yareli Rouse on09/09/2023 at 05:50 PM No nuclear medicine results found for the past 12 months Relevant Imaging Results ECG 12 lead Normal sinus rhythm Non-specific intra-ventricular conduction block Lateral infarct (cited on or before 03-JUL-2023) Inferior injury pattern ACUTE AK / STEMI Consider right ventricular involvement in acute inferior infarct Abnormal ECG When compared with ECG of 08-OCT-2023 17:49, Significant changes have occurred Confirmed by Josh ROUSE, YARELI Velazquez (57) on 04/19/2024 9:43:08 AM ASSESSMENT NSTEMI likely type 1 Acute on chronic heart failure with improved ejection fraction 45% previously 30% primary hypertension, type 2 diabetes mellitus, mixed hyperlipidemia, coronary artery disease status post PCI to LAD, RCA on 10/2023, PLAN Given ongoing chest pain and troponin elevation, we will proceed with coronary angiogram. Risks and benefits of procedure discussed with patient in detail, all questions were answered, patient is agreeable and wishes to proceed. Continue on heparin infusion Add nitroglycerin infusion Obtain transthoracic echocardiogram Continue on dual antiplatelet therapy, Lipitor, and Toprol 50 mg daily. IV Lasix 40 mg daily. Optimize GDMT as tolerated, current GDMT regimen includes Entresto, Aldactone, Farxiga, Toprol. Further recommendations to follow post procedure. This note was, at least in part, completed using a voice protection officer system. Every effort was made to ensure accuracy. However, inadvertent computerized protection officer errors may be present. Alexandria Duran MD PGY-4 [employer] [facility] PROGRESS Observed: 04/19/2024 10:54 AM Status: COMPLETED Source: [facility] Physical Therapy Currently off of the floor this morning for heart cath. Will likely follow up tomorrow for evaluation. Smooth Bazzi PT, DPT TROPONIN I Collected: 04/19/2024 9:31 AM Status: UN K Source: [facility] TYPE CODE TESTS RESULT OUT OF RANGE REFERENCE UNITS LAB [id number] TROPONIN I.CARDIAC (NG/ML) IN SERUM OR PLASMA 13.04 High Alert 0.00-0.04 ng/mL Result Comment: M-PREVIOUS C RITICAL RESULT Previous result verified on 04/19/2024 0818 on specimen/case [id number] called with component Troponin I for procedure Troponin I with value 17.02 ng/mL. Performed By: #### [id number] ## ## [facility] ([facility]) [address] [place] [address] CT ABDOMEN PELVIS W IV CONTRAST Observed: 04/19/2024 8:39 AM Status: UNK Source: [facility] STUDY: ABDOMEN AND PELVIS CT WITH CONTRAST HISTORY: Elevated LFTs, abdominal pain, chest pain COMPARISON: 03/28/2014. TECHNIQUE: Routine CT abdomen and pelvis was performed with contrast. All CT scans at this facility use dose modulation, iterative reconstruction, and/or weight based dosing when appropriate to reduce radiation dose to as low as reasonably achievable. FINDINGS: Cardiomegaly. Small bilateral pleural effusions with adjacent atelectasis. Severe coronary artery calcifications. No focal liver mass. Vicarious excretion of contrast in the gallbladder. No biliary ductal dilatation. The adrenal glands, pancreas, and spleen are unremarkable. Several small bilateral renal cysts. There is a heterogeneous lesion measuring 2.8 cm in the upper pole of the right kidney (axial image 47), similar in size in comparison with previous study. This may contain a few small fat components. No enlarged abdominal or pelvic lymph nodes. Diffuse atherosclerotic disease. The bladder is underdistended. Previous hysterectomy. The small and large bowel are of normal caliber with no evidence of bowel wall thickening. Chronic thick-walled scarring containing trace amount of fluid in the anterior abdominal wall is unchanged since previous. No free fluid in the abdomen or pelvis. No free intraperitoneal air. Degenerative and postoperative changes in the spine. IMPRESSION: *No focal liver mass or biliary ductal dilatation. *Cardiomegaly with severe coronary artery calcifications. 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 Consider renal mass protocol MRI for more detailed characterization. *Small bilateral pleural effusions with adjacent atelectasis Electronically signed: Jorje Neumann MD. POCT GLUCOSE METER UNSOLICIT ED RESULTS Collected: 04/19/2024 7:51 AM Status: UNK Source: [facility] Order Comment: Waived Testin g in the ED is performed under the ED CLIA certificate #[id number]. TYPE CODE TESTS RESULT OUT OF RANGE REFERENCE UNITS LAB 885 POCT GLUCOSE 260 High 70-105 mg/dL Result Comment: [email or web address] Performed By: #### [id number] #### [facility] ([facility]) [address] [place] [address] PROGRESS Observed: 04/19/2024 7:26 AM Status: COMPLETED Source: [facility] Labs and chart reviewed Patient with chest pain this am of 2 out of 10 Troponin elevated at 17.02 for which cards was contacted Patient seen at bedside, no distress, rates pain a 1 She is obese BLE edema +1 pitting Wound care following for toe ulcerations Q6h blood glucose She is npo and will be cathed today LFTs elevated on CMP with leukocytosis, no abdominal pain or tenderness CT abdomen and liver US ordered, to take place post cath today Discussed plan of care with patient and RN at bedside. APTT Collected: 04/19/2024 6:05 AM Status: UN K Source: [facility] Order Comment: Baseline aPTT before initiating heparin infusion. TYPE CODE TESTS RESULT OUT OF RANGE REFERENCE UNITS LAB [id number] ACTIVATED PARTIA L THROMBOPLASTIN TIME IN PPP BY COAGULATION ASSAY 29.5 25.0-35.0 Seconds Result Comment: Clinical sig nificance of the APTT is questionable in the presence of heparin. Performed By: #### [id number] ## ## [facility] ([address] [address] CK Collected: 6:02 AM Status: UNK Source: [facility] TYPE CODE TESTS RESULT OUT OF RANGE REFERENCE UNITS LAB [id number] CREATINE KINASE (U/L) IN SER/PLAS 467.0 High 30.0-223.0 U/L Performed By: #### [id number] ### # [facility] ([address] [address] HEPATITIS PANEL, ACUTE Collected: 04/19/2024 6:02 AM Status: UNK Source: [facility] TYPE CODE TESTS RESULT OUT OF RANGE REFERENCE UNITS LAB [id number] HEPATITIS B VIRUS SURFACE AG PRESENCE IN SERUM Nonreactive Nonreactive LAB 9477943 HEPATITIS A VIRUS IGM AB PRESENCE IN SER/PLAS Nonreactive Nonreactive LAB 7027737 HEPATITIS C VIRUS AB PRESENCE IN SERUM Nonreactive Nonreactive LAB 6338781 HEPATITIS B VIRUS CORE AB (PRESENCE) IN SER/PLAS BY IMM Nonreactive Nonreactive Performed By: #### [id number] ## ## [facility] ([address] [address] MANUAL DIFFERENTIAL Collected: 04/19/2024 6:[address] atus: UNK Source: [facility] TYPE CODE TESTS RESULT OUT OF RANGE REFERENCE UNITS LAB 1767 IMMATURE GRANULOCYTES/100 LEUKOCYTES IN BLOOD BY AUTOMATED COUNT 0.7 0.0-1.0 % LAB 109 VARIANT LYMPHOCYTES/100 LEUKOCYTES IN BLOOD CELLAVISION 0.0 0.0-0.0 % LAB [id number] NEUTROPHILS (10*3/UL) IN BLOOD BY CALCULATION 19.4 High 1.6-7.6 10*3/uL LAB 9879370 LYMPHOCYTES (10*3/UL) IN BLOOD BY CALCULATION 1.01 Low 1.20-4.00 10*3/uL LAB 3699379 MONOCYTES (10*3/UL) IN BLOOD BY CALCUATION 2.87 High 0.10-1.00 10*3/uL LAB 9474660 EOSINOPHILS (10*3/UL) IN BLOOD BY CALCULATION 0.02 0.00-0.50 10*3/uL LAB 0605733 BASOPHILS (10*3/UL) IN BLOOD BY CALCULATION 0.05 0.00-0.20 10*3/uL LAB 114 VARIANT LYMPHOCYTES (10*3/UL) IN BLOOD BY CALCULATION 0.00 0.00 10*3/uL LAB [id number] NEUTROPHILS/100 LEUKOCYTES IN BLOOD BY AUTOMATED COUNT 82.5 High 40.0-72.0 % LAB 4243826 LYMPHOCYTES/100 LEUKOCYTES IN BLOOD BY AUTOMATED COUNT 4.3 Low 20.0-45.0 % LAB 1331038 MONOCYTES/100 LEUKOCYTES IN BLOOD BY AUTOMATED COUNT 12.2 High 5.0-12.0 % LAB 2337231 EOSINOPHILS/100 LEUKOCYTES IN BLOOD BY AUTOMATED COUNT 0.1 0.0-6.0 % LAB 4272346 BASOPHILS/100 LEUKOCYTES IN BLOOD BY AUTOMATED COUNT 0.2 0.0-1.0 % LAB 2631 IMMATURE GRANULOCYTES (10*3/UL) IN BLOOD BY CALCULATION 0.16 0.00-0.20 10*3/uL LAB 2633 PLASMA CELLS/100 LEUKOCYTES IN BLOOD 0 0 % LAB 4023394 NUCLEATED RED BLOOD CELLS IN BLOOD BY LIGHT MICROSCOPY Present Performed By: #### [id number] # ### [facility] ([facility]) [address] [place] [address] HEMOGLOBIN A1C Collected: 04/19/2024 6:02 AM Status: UNK Source: [facility] TYPE CODE TESTS RESULT OUT OF RANGE REFERENCE UNITS LAB 5472204 HEMOGLOBIN A1C/HEMOGLOBIN TOTAL IN BLOOD 9.7 High 4.0-6.0 % LAB 294 ESTIMATED AVERAGE GLUCOSE (MG/DL) IN BLOOD 232 mg/dL Performed By: #### [id number] ### # [facility] ([facility]) [address] [place] [address] CBC WITH AUTO DIFFERENTIAL Collected: 04/19/2024 6:02 AM Status: UNK Source: [facility] TYPE CODE TESTS RESULT OUT OF RANGE REFERENCE UNITS LAB 2993540 LEUKOCYTES(10*3/ UL) IN BLOOD BY AUTOMATED COUNT 23.34 High 4.00-10.60 10*3/uL LAB 9951361 ERYTHROCYTES (10*6/UL) IN BLOOD BY AUTOMATED COUNT 4.29 3.80-5.00 10*6/uL LAB 6888869 HEMOGLOBIN (G/DL) IN BLOOD 12.3 12.0-15.0 g/dL LAB 0897210 HEMATOCRIT (%) IN BLOOD BY AUTOMATED COUNT 40.1 36.0-48.0 % LAB 2759241 ERYTHROCYTE MEAN CORPUSCULAR VOLUME (FL) BY AUTOMATED COUNT 93.5 82.0-98.0 fL LAB 9246481 ERYTHROCYTE MEAN CORPUSCULAR HEMOGLOBIN (PG) BY AUTOMATED COUNT 28.7 27.0-33.0 pg LAB 5650797 ERYTHROCYTE MEAN CORPUSCULAR HEMOGLOBIN CONCENTRATION (G/DL) BY AUTOMATED 30.7 Low 32.0-35.0 g/dL LAB 0667369 ERYTHROCYTE DISTRIBUTION WIDTH (RATIO) BY AUTOMATED COUNT 16.4 High 11.5-15.0 % LAB 7848116 PLATELETS (10*3/UL) IN BLOOD AUTOMATED COUNT 312 150-400 10*3/uL LAB 254 NRBC (PER 100 WBCS) BY AUTOMATED COUNT 0.0 0 % Performed By: #### [id number] # ### [facility] ([facility]) [address] [place] [address] TSH3 REFLEX TO FT4 Collected: 04/19/2024 6:02 AM Sta tus: UNK Source: [facility] TYPE CODE TESTS RESULT OUT OF RANGE REFERENCE UNITS LAB 8464161 THYROTROPIN (MIU/L) IN SER/PLAS BY DETECTION LIMIT <= 0.05 MIU/L 0.64 0.34-5.60 mIU/L Performed By: #### [id number] # ### [facility] ([facility]) [address] [place] [address] TROPONIN I Collected: 04/19/2024 6:02 AM Status: UN K Source: [facility] TYPE CODE TESTS RESULT OUT OF RANGE REFERENCE UNITS LAB 6756114 TROPONIN I.CARDIAC (NG/ML) IN SERUM OR PLASMA 17.02 High Alert 0.00-0.04 ng/mL Performed By: #### [id number] ## ## [facility] ([facility]) [address] [place] [address] LIPID PANEL Collected: 04/19/2024 6:02 AM Status: UN K Source: [facility] TYPE CODE TESTS RESULT OUT OF RANGE REFERENCE UNITS LAB 4227845 TRIGLYCERIDE (MG/DL) IN SER/PLAS 79 40-149 mg/dL Result Comment: TRIGLYCERIDE REFERENCE RANGE: 20 YEARS AND OLDER CARDIOVASCULAR RISK LESS THAN 150 mg/dL LOW RISK 150 TO 199 mg/dL BORDERLINE RISK 200 mg/dL AND GREATER HIGH RISK LAB 7896969 CHOLESTEROL (MG/DL) IN SER/PLAS 107 Low 120-200 mg/dL LAB 8215591 CHOLESTEROL IN LDL (MG/DL) IN SERUM OR PLASMA BY CALCULATION 41 0-160 mg/dL LAB 4251804 CHOLESTEROL IN HDL (MG/DL) IN SER/PLAS 50 23-92 mg/dL LAB 6240738 NON HDL CHOL. (LDL+VLDL) 57 NA LAB 0361898 TOTAL VLDL-C 16 0-40 mg/dL LAB 2481 CHOL/HDL 2.1 mg/dL Performed By: #### [id number] ### # [facility] ([facility]) [address] [place] [address] COMPREHENSIVE METABOLIC PANEL Collected: 04/19/2024 6 :02 AM Status: UNK Source: [facility] TYPE CODE TESTS RESULT OUT OF RANGE REFERENCE UNITS LAB 5720783 SODIUM (MMOL/L) IN SER/PLAS 134 Low 136-145 mmol/L LAB 6274001 POTASSIUM (MMOL/ L) IN SER/PLAS 4.4 3.5-5.1 mmol/L LAB 9037694 CHLORIDE (MMOL/L ) IN SER/PLAS 102 98-107 mmol/L LAB 9485773 CARBON DIOXIDE, TOTAL (MMOL/L) IN SER/PLAS 21 21-31 mmol/L LAB 7611875 ANION GAP IN SER/PLAS 15 7-20 mmol/L LAB 4226696 UREA NITROGEN (MG/DL) IN SER/PLAS 26 High 7-25 mg/dL LAB 3433952 CREATININE (MG/D L) IN SER/PLAS 0.90 0.60-1.20 mg/dL LAB 3946280 UREA NITROGEN/CREATININ E (MASS RATIO) IN SER/PLAS 28.9 NA LAB 3231613 GLUCOSE (MG/DL) IN SER/PLAS 273 High 70-100 mg/dL LAB 3798420 CALCIUM (MG/DL) IN SER/PLAS 9.8 8.6-10.3 mg/dL LAB 1227730 ASPARTATE AMINOTRANSFERASE (SGOT) (U/L) IN SER/PLAS 77 High 13-39 U/L LAB 6661934 ALANINE AMINOTRANSFERASE (SGPT) (U/L) IN SER/PLAS 63 High 7-52 U/L LAB 5936178 ALKALINE PHOSPHATASE (U/L) IN SER/PLAS 107 High 34-104 U/L LAB 9623452 PROTEIN (G/DL) I N SER/PLAS 6.2 6.0-8.3 g/dL LAB 4536189 ALBUMIN (G/DL) I N SER/PLAS 3.6 3.5-5.7 g/dL LAB 1984335 BILIRUBIN TOTAL (MG/DL) IN SER/PLAS 1.0 0.3-1.0 mg/dL LAB 1536023 GLOMERULAR FILTRATION RATE ML/MIN/1.73 SQ M.PREDICTED 68.3 >60.0 mL/min /1.73m *2 Result Comment: [facility]???s estimated glomerular filtration rate (eGFR) will [...] one group of individuals. Performed By: #### [id number] ### # [facility] ([facility]) [address] [place] [address] Observed: 04/19/2024 5:40 AM Status: COMPLETED Source: [facility] Hospital Medicine History and Physical 04/19/2024 5:40 AM THE HOSPITALIST TEAM PREFERS TO USE [employer] FOR NON-URGENT COMMUNICATION 7AM-7PM. IF I DO NOT RESPOND WITHIN 20 MINUTES OR URGENT MATTERS, PLEASE CALL THROUGH THE [employer] TECHNICIAN. FROM 7PM-7AM, PLEASE PAGE [phone](COVR). Chief Complaint No chief complaint on file. History of Present Illness Laura Lawson is an 73 y.o. female transferred from [facility] where she was admitted with ongoing pain left upper chest radiating to arm and neck associated with nausea vomiting no shortness of breath no dizziness no heart palpitation patient has history of coronary artery disease status post PCI with drug-eluting stent to LAD x 2 and right coronary artery done on 10/09/2023. She was noted to have high-grade calcific stenosis at the ostium of the LAD and high-grade stenosis in the right coronary artery as well at the time because of high risk she should underwent heart cath with Impella assist her pain was ongoing and continued so she was started on IV heparin and IV nitro patient stated 2 hours after she was started on the above medication the pain completelyresolved. At the time of evaluation she was pain-free and appeared to be in good spirits without any associated symptoms Patient has. Patient has history of hypertension obesity pericardial effusion has history of heart failure with reduced ejection fraction with last echo October 2023 showing left ventricular ejection fraction of 40 to 45% Review of System and Physical Exam Physical Exam Vitals reviewed. Constitutional: Comments: Obese white female pleasant cooperative chest pain-free no distress HENT: Head: Normocephalic and atraumatic. Right Ear: Tympanic membrane, ear canal and external ear normal. Left Ear: Tympanic membrane, ear canal and external ear normal. Nose: Nose normal. Mouth/Throat: Mouth: Mucous membranes are moist. Pharynx: Oropharynx is clear. Eyes: Extraocular Movements: Extraocular movements intact. Conjunctiva/sclera: Conjunctivae normal. Pupils: Pupils are equal, round, and reactive to light. Cardiovascular: Rate and Rhythm: Normal rate and regular rhythm. Pulmonary: Effort: Pulmonary effort is normal. Breath sounds: Normal breath sounds. Abdominal: General: Bowel sounds are normal. Palpations: Abdomen is soft. Comments: Palpable mesh suprapubic area nontender no redness no erythema Musculoskeletal: General: Normal range of motion. Cervical back: Normal range of motion and neck supple. Right lower leg: Edema present. Left lower leg: Edema present. Skin: Capillary Refill: Capillary refill takes less than 2 seconds. Comments: Chronic venous stasis changes both legs no weeping Neurological: General: No focal deficit present. Mental Status: Mental status is at baseline. Psychiatric: Mood and Affect: Mood normal. Behavior: Behavior normal. Review of Systems Constitutional: Positive for activity change and fatigue. HENT: Negative. Eyes: Negative. Respiratory: Positive for shortness of breath. Negative for apnea, cough, choking, chest tightness, wheezing and stridor. Cardiovascular: Positive for chest pain and leg swelling. Negative for palpitations. Gastrointestinal: Negative. Endocrine: Negative. Genitourinary: Negative. Musculoskeletal: Negative. Allergic/Immunologic: Negative. Neurological: Negative. Hematological: Negative. Psychiatric/Behavioral: Negative. Problem List Principal Problem: Angina pectoris ([facility]) Assessment and Plan NSTEMI Chest pain resolved History of coronary artery disease status post PCI and RENO to LAD and RCA History of hypertension History of HFrEF History of diabetes mellitus History of mixed hyperlipidemia Obesity with BMI of 44.43 History of DJD back Continue IV heparin. Was off Nitro drip so changed to Nitropatch continue carvedilol statin aspirin continue guideline directed medical therapy for HFrEF serial electrolytes creatinine insulin basal and postprandial coverage watch for hypoglycemia pain control cardiology to see patient continue telemetry Skin care nutritional support CODE STATUS for now full code VTE Prophylaxis: IV heparin ----- Focus of this inpatient stay will remain on problems that need acute care setting for care. We will review available studies and will order additional labs, imaging and other studies as appropriate. As needed medicines are ordered as appropriate. VTE Prophylaxis will be ordered as appropriate. Please see above for management plan for individual hospital problems. Home medications are reviewed and will be continued as appropriate. Patient will be continued to be followed during this hospital stay by a member of [facility]. Past Medical History Past Medical History: Diagnosis Date Abnormal ECG CHF (congestive heart failure) ([facility]) Coronary artery disease Diabetes mellitus ([facility]) Gout Hypertension Myocardial infarction ([facility]) Sleep apnea Past Surgical History Past Surgical History: Procedure Laterality Date BACK SURGERY CARDIAC CATHETERIZATION CARPAL TUNNEL RELEASE HYSTERECTOMY THYROID SURGERY Social History Social History Socioeconomic History Marital status: Single Spouse name: Not on file Number of children: Not on file Years of education: Not on file Highest education level: Not on file Occupational History Not on file Tobacco Use Smoking status: Never Smokeless tobacco: Never Substance and Sexual Activity Alcohol use: Not Currently Drug use: Not on file Sexual activity: Not on file Other Topics Concern Not on file Social History Narrative Not on file Social Determinants of Health Financial Resource Strain: Low Risk (04/19/2024) Overall Financial Resource Strain (CARDIA) Difficulty of Paying Living Expenses: Not hard at all Food Insecurity: No Food Insecurity (04/19/2024) Hunger Vital Sign Worried About Running Out of Food in the Last Year: Never true Ran Out of Food in the Last Year: Not on file Transportation Needs: No Transportation Needs (04/19/2024) Transportation Lack of Transportation (Medical): No Lack of Transportation (Non-Medical): Not on file Physical Activity: Not on file Stress: Not on file Social Connections: Not on file Intimate Partner Violence: Unknown (04/19/2024) Humiliation, Afraid, Rape, and Kick questionnaire Fear of Current or Ex-Partner: No Emotionally Abused: Not on file Physically Abused: Not on file Sexually Abused: Not on file Housing Stability: Low Risk (04/19/2024) Housing Stability Vital Sign Unable to Pay for Housing in the Last Year: Not on file Number of Places Lived in the Last Year: Not on file Unstable Housing in the Last Year: No Family History family history includes JABARI disease in her mother; Heart attack in her father. Allergies is allergic to gabapentin and tramadol. Prior to Admission Medications Medications Prior to Admission Medication Sig Dispense Refill Last Dose pregabalin (Lyrica) 25 mg capsule Take 25 mg by mouth two times daily. allopurinol (Zyloprim) 300 mg tablet Take 300 mg by mouth in the morning. 04/18/2024 aspirin 81 mg EC tablet Take 81 mg by mouth in the morning. 04/18/2024 atorvastatin (Lipitor) 80 mg tablet Take 1 tablet (80 mg) by mouth at bedtime. 90 tablet 3 04/18/2024 baclofen (Lioresal) 10 mg tablet Take 10 mg by mouth at bedtime. 04/18/2024 candesartan (Atacand) 32 mg tablet Take 32 mg by mouth in the morning. carvedilol (Coreg) 6.25 mg tablet Take 1 tablet (6.25 mg) by mouth in the morning and at bedtime for 189 doses. 60 tablet 3 04/18/2024 clopidogrel (Plavix) 75 mg tablet Take 1 tablet (75 mg) by mouth once daily as directed for 360 doses. 90 tablet 3 04/18/2024 dapagliflozin propanediol (Farxiga) 10 mg Take 1 tablet (10 mg) by mouth in the morning for 94 doses. Do not start before July 08, 2023. 30 tablet 3 04/18/2024 ezetimibe (Zetia) 10 mg tablet Take 1 tablet (10 mg) by mouth in the morning. 90 tablet 3 hydrALAZINE (Apresoline) 25 mg tablet Take 1 tablet (25 mg) by mouth in the morning and at bedtime. 180 tablet 3 04/18/2024 insulin lispro (HumaLOG) 100 unit/mL injection with breakfast, with lunch, and with evening meal. Patient reports taking three times daily 15 minutes before meals. Sliding scale meloxicam (Mobic) 15 mg tablet Take 15 mg by mouth in the morning. 04/18/2024 nitroglycerin (Nitrostat) 0.3 mg SL tablet nitroglycerin 0.3 mg sublingual tablet Past Month omeprazole (PriLOSEC) [address] capsule Past Week potassium chloride CR (Klor-Con M20) 20 mEq ER tablet every 12 (twelve) hours. 04/18/2024 sacubitril-valsartan (Entresto) 49-51 mg tablet Take 1 tablet by mouth in the morning and at bedtime. Replacing candesartan 180 tablet 1 04/18/2024 spironolactone (Aldactone) 25 mg tablet Take 1 tablet (25 mg) by mouth once daily as directed for 360 doses. 90 tablet 3 04/18/2024 torsemide (Demadex) 20 mg tablet Take 20 mg by mouth in the morning. Past Week Toujeo Max U-300 SoloStar 300 unit/mL (3 mL) injection Inject 100 Units under the skin in the morning. Trulicity 1.5 mg/0.5 mL pen injector Inject 1.5 mg under the skin 1 (one) time per week. 04/18/2024 Labs Labs Reviewed TROPONIN I TROPONIN I CBC AND DIFFERENTIAL Narrative: The following orders were created for panel order CBC and differential. Procedure Abnormality Status --------- ------ CBC auto differential[[id number]] Please view results for these tests on the individual orders. COMPREHENSIVE METABOLIC PANEL TSH3 REFLEX TO FT4 LIPID PANEL ANTI-XA (HEPARIN LEVEL) APTT CBC WITH AUTO DIFFERENTIAL CK HEMOGLOBIN A1C POCT GLUCOSE METER Imaging Cardiac catheterization PROCEDURE PHYSICIAN: Julito Zendejas MD . Indications: [...] RCA. Assistants: Dr Mary Lou Barrios. Dr Sofiya Rosado. Procedure Performed: IVUS assessment of the LAD. [...] and drug eluting stenting of 70% instent restenosis in the proximal right coronary artery, with reduction of the stenosis to 0% by a Synergy XD 3.0 x 32 mm drug eluting stent, post dilated to 3.25 mm at high pressures. Placement of Impella CP for mechanical circulatory support during high risk percutaneous intervention. Left heart catheterization. Access into the left common femoral artery under ultrasound guidance. Limited left common femoral angiogram. Deployment of two 6F Proglide vascular closure devices for pre-closure in the left common femoral artery. Methods: Procedure was explained to the patient with risks and benefits; she signed informed consent. she was brought to the cardiac cath rn in a fasting state. The right groin area was prepped and draped in usual fashion. Attempted access of the right common femoral artery failed using micropuncture technique and ultrasound guidance due to presence of heavy calcification and stenosis in the right common femoral artery. This access site was abandoned. The left groin area was prepped and draped in usual fashion. Micropuncture technique was used under ultrasound guidance for access in the left common femoral artery. Inner cannular angiography was performed followed by upsizing to a 6-Brazilian x 11 cm sheath. Preclosure in the left common femoral artery was performed using 2 crossing 6 Brazilian ProGlide devices. The access was upsized to a 10 Brazilian by 11 cm sheath. This was later upsized over a stiff wire to a 14 Brazilian Impella access sheath. Heparin was administered intravenously and therapeutic ACT was confirmed during the rest of the procedure. Using a 6 Brazilian angled pigtail the aortic valve was crossed and left heart catheterization was performed. The pigtail was used to place the Impella wire in the left ventricle. The Impella CP catheter was then primed and prepped using standard techniques. The catheter was advanced through the access sheath and into the left ventricular cavity. Ventricular support was initiated with P9 support level. Single access technique was used with advancement of a 7 Brazilian access sheath through the Impella sheath alongside the Impella catheter. At this time we attempted to engage the left main coronary ostium using multiple guiding catheters including 7 Brazilian XB 3.0, XB 3.5, AL-1, JL 3.5 as well as 6 Brazilian XB3.5, and JL4.0. There was inability to engage the left main using seeing any of these guiding catheters. A 6 Brazilian JL 4 diagnostic catheter was advanced and was able to engage the left main coronary ostium. Angiography was performed. A exchange length Prowater wire was advanced into the distal LAD. The diagnostic catheter was retracted. A J-wire was advanced alongside the Prowater wire into the ascending aorta and over the combination of the Prowater wire and the J-wire a 7 Brazilian XB 3.5 guiding catheter was advanced and using this technique there was ability to engage the main after advancing a Emerge balloon and a guide liner to assist in tracking the guiding catheter into the left main. At that point the guideliner catheter and the balloon where retracted. Baseline LUIS flow was 3. A fine cross catheter was advanced over the Prowater wire and used to exchange it to a Rotafloppy wire. A rotational atherectomy 1.75 mm bur catheter was then prepped and platformed at 160,000 revolutions per minute. The atherectomy bur was advanced and multiple passes for rotational atherectomy were performed in the ostial to proximal LAD. The rotational atherectomy bur was retracted and the fine cross catheter was used to exchange the Rotafloppy wire to the Prowater wire. Angiography was performed. A refinish T IVUS catheter was then advanced and used to perform IVUS assessment of the left main, proximal and mid LAD. There was evidence of heavy calcifications in the ostium of the LAD with post rotational atherectomy MSA of 3.0 mm???. There was evidence of heavy calcifications in the proximal to mid RCA with in-stent and Denovo stenoses with MSA of 3.0 mm???. Shockwave lithotripsy was then performed in the ostial, proximal and mid LAD using a 3.0 mm strip see balloon with a total of 120 pulses delivered in the ostium, proximal and mid LAD segments with 40 pulses at each site. Angiography was performed. A NC 3.25 x 20 mm noncompliant balloon was then used to perform multiple dilatations in the ostial, proximal and mid LAD segments with inflations up to 20 jamaal. Balloon was retracted. Additional shockwave lithotripsy was performed in the ostial to proximal LAD using a 3.5 x 12 mm lithotripsy balloon with a total of 120 pulses delivered. Based on IVUS assessment to it we decided to stent from the ostial to the mid LAD with a decision to having the proximal stent in the left main. A Synergy XD 3.0 x 38 mm drug-eluting stent was then advanced and deployed at 12 jamaal in the mid LAD. This was then postdilated using NC 3.5 x 20 mm balloon inflated to 20 jamaal in the stent. An additional stent Synergy Megatron 3.5 x 28 mm drug-eluting stent was then advanced and deployed starting from the distal left main and covering the ostial to proximal LAD and overlapping with the recently deployed stent. The stent was deployed at 12 jamaal. This was postdilated using NC 4.0 x 12 mm noncompliant balloon inflated at 26 jamaal in the ostial to proximal LAD followed by postdilatation using NC 5.0 x 8 mm noncompliant balloon inflated up to 14 jamaal in the distal left main and ostial LAD segment of the stent. Angiography revealed excellent result with reduction of the stenosis to 0%, no evidence of dissection or perforation and LUIS 3 flow in the coronary artery and branches. The guiding catheter and wire were removed. Baseline LUIS flow was 3. A Reactful coronary guide wire was advanced to the distal right coronary artery. A NC 3.0 x 15 mm noncompliant balloon was advanced and used to performed balloon angioplasty at the site of the proximal instent re-stenosis with inflations up to 20 Jamaal. Angiography was performed. A Synergy XD 3.0 x 32 mm drug-eluting stent was advanced and deployed at 12 Jamaal across the stenosis and postdilated using a NC 3.25 x 15 mm balloon inflated up to 20 Jamaal throughout the length of the stented segment. Angiography revealed excellent result with reduction of the stenosis to 0%, no evidence of dissection or perforation and LUIS 3 flow in the coronary artery and branches. The guiding catheter and wire were removed. The patient was loaded with clopidogrel 600 mg at the end of the procedure. Hemostasis was achieved by Perclose in the femoral artery. she tolerated the procedure well and was transferred back to the cardiovascular recovery area. Hemodynamic Data: AO: 156/78 (107) LV: 151/2 (12) Limited left common femoral angiography: This showed access to be in the femoral artery with no obstructive lesions seen in the common femoral artery and its proximal branches. Plan: Aspirin 81 mg daily for life. Dual antiplatelet therapy with Aspirin 81 mg daily for life and Clopidogrel 75 mg daily for 12 months at least, preferably longer given complex coronary artery disease, complex interventions and multiple long stents. Statin therapy for life. Maximize antianginal therapy. Guideline directed medical therapy for heart failure. Risk factor control. Follow up in Cardiology Clinic. Julito Zendejas MD Signed Joshua Grider MD [facility] 04/19/2024 5:40 AM DOCUMENTATION Observed: 04/19/2024 12:00 AM Status: COMPLETED Source: [facility] [id number] Laura Lawson 1950 F Date Provider Department Center 04/19/2024 Hank-SOFIYA ROSADO [facility] Castaneda Count Family History Problem Relation Age of Onset JABARI disease Mother Heart attack Father Family Status - Relation Status Age at Mother Father Reason for Visit and Comments: Coronary Artery Disease [187] PROGRESS Observed: 03/05/2024 1:00 PM Status: COMPLETED Source: [facility] Cardiology - [facility] Subjective Laura Lawson is a [...] essential hypertension Cerebrovascular disease Chronic foot ulcer ([facility]) Coronary atherosclerosis Decreased estrogen level Diabetic retinopathy associated with type 2 diabetes mellitus ([facility]) Diaphragmatic hernia Difficulty walking Dyspnea on exertion Generalized osteoarthritis Gout History of arthritis History of hysterectomy Hyperglycemia due to type 2 diabetes mellitus ([facility]) detention current use of insulin ([facility]) Low back pain Morbid obesity ([facility]) Neoplasm of uncertain behavior of kidney Obstructive sleep apnea syndrome Osteoarthritis of knee Osteoporosis Peripheral venous insufficiency Polyneuropathy due to type 2 diabetes mellitus ([facility]) Preoperative evaluation to rule out surgical contraindication Pulmonary function studies abnormal Pure hypercholesterolemia Renal mass Skin sensation disturbance Type 2 diabetes mellitus without complication ([facility]) Umbilical hernia Uric acid nephrolithiasis NSTEMI (non-ST elevated myocardial infarction) ([facility]) Acute exacerbation of CHF (congestive heart failure) ([facility]) COVID-19 Acquired spondylolisthesis Acute on chronic diastolic heart failure ([facility]) Coronary artery disease (CAD) excluded Diastolic dysfunction GERD (gastroesophageal reflux disease) History of carpal tunnel surgery of right wrist Hyperlipidemia Impaired mobility and endurance Localized edema Lumbar radiculopathy Morbid obesity with body mass index (BMI) of 45.0 to 49.9 in adult ([facility]) Paresthesia of skin Primary osteoarthritis of both knees S/P drug eluting coronary stent placement Ulcer of foot due to type 2 diabetes mellitus (CMS/HCC) Pericardial effusion CAD in gambell artery Coronary artery disease Coronary artery disease involving gambell coronary artery of gambell heart with other form of angina pectoris [...] Left lower le+ Pitting Edema present. Comments: Uses a walker to assist with ambulation Skin: General: Skin is warm and dry. Neurological: General: No focal deficit present. Mental Status: She is alert and oriented to person, place, and time. Psychiatric: Mood and Affect: Mood normal. Behavior: Behavior is cooperative. Judgment: Judgment normal. Allergies Allergies Allergen Reactions Gabapentin Palpitations Other reaction(s): Chest Pain Tramadol Other Other reaction(s): sleeplessness Medications Current Outpatient Medications: allopurinol (Zyloprim) 300 [...] 08, 2023., Disp: 30 tablet, Rfl: 3 ezetimibe (Zetia) 10 mg tablet, Take 1 tablet (10 mg) by mouth in the morning., Disp: 90 tablet, Rfl: 3 hydrALAZINE (Apresoline) 25 mg tablet, Take 1 tablet (25 mg) by mouth in the morning and at bedtime., Disp: 180 tablet, Rfl: 3 insulin lispro (HumaLOG) 100 unit/mL injection, Patient reports taking three times daily 15 minutes before meals. Reports taking 25 units of Humalog to decrease glucose reading by 100, Disp: , Rfl: meloxicam (Mobic) 15 mg tablet, Take 15 mg by mouth in the morning., Disp: , Rfl: nitroglycerin (Nitrostat) 0.3 mg SL tablet, nitroglycerin 0.3 mg sublingual tablet, Disp: , Rfl: omeprazole (PriLOSEC) [address] capsule, , Disp: , Rfl: potassium chloride CR (Klor-Con M20) 20 mEq ER tablet, every 12 (twelve) hours., Disp: , Rfl: sacubitril-valsartan (Entresto) 49-51 mg tablet, Take 1 tablet by mouth in the morning and at bedtime. Replacing candesartan, Disp: 180 tablet, Rfl: 1 spironolactone (Aldactone) 25 mg tablet, Take 1 tablet (25 mg) by mouth once daily as directed for 360 doses., Disp: 90 tablet, Rfl: 3 torsemide (Demadex) 20 mg tablet, Take 20 mg by mouth in the morning., Disp: , Rfl: Toujeo Max U-300 SoloStar 300 unit/mL (3 mL) injection, Inject 100 Units under the skin in the morning., Disp: , Rfl: Trulicity 1.5 mg/0.5 mL pen injector, Inject 1.5 mg under the skin 1 (one) time per week., Disp: , Rfl: Recent Labs Admission on 10/08/2023, Discharged on 10/09/2023 Component Date Value Ventricular Rate 10/08/2023 58 Atrial Rate 10/08/2023 58 NC Interval 10/08/2023 236 QRS DURATION 10/08/2023 148 QT Interval 10/08/2023 484 QTC CALCULATION(BAZETT) 10/08/2023 475 P [place] 10/08/2023 92 R-[place] 10/08/2023 -68 T Wave [place] 10/08/2023 84 Ventricular Rate 10/08/2023 57 Atrial Rate 10/08/2023 57 NC Interval 10/08/2023 216 QRS DURATION 10/08/2023 144 QT Interval 10/08/2023 488 QTC CALCULATION(BAZETT) 10/08/2023 474 P [place] 10/08/2023 40 R-[place] 10/08/2023 235 T Wave [place] 10/08/2023 49 Glucose POC 10/08/2023 179 (H) Ventricular Rate 10/08/2023 61 Atrial Rate 10/08/2023 61 NC Interval 10/08/2023 206 QRS DURATION 10/08/2023 142 QT Interval 10/08/2023 496 QTC CALCULATION(BAZETT) 10/08/2023 499 P [place] 10/08/2023 -13 R-[place] 10/08/2023 257 T Wave [place] 10/08/2023 72 Glucose POC 10/08/2023 208 (H) Glucose POC 10/09/2023 215 (H) Sodium 10/09/2023 135 (L) Potassium 10/09/2023 4.2 Chloride 10/09/2023 104 CO2 10/09/2023 24 BUN 10/09/2023 37 (H) Creatinine 10/09/2023 1.18 Glucose 10/09/2023 231 (H) Calcium 10/09/2023 9.7 Anion Gap 10/09/2023 11 eGFR 10/09/2023 49.7 (L) BUN/Creatinine Ratio 10/09/2023 31.4 Auto WBC 10/09/2023 13.05 (H) RBC 10/09/2023 3.28 (L) Hemoglobin 10/09/2023 10.5 (L) Hematocrit 10/09/2023 32.9 (L) MCV 10/09/2023 100.3 (H) MCH 10/09/2023 32.0 MCHC 10/09/2023 31.9 (L) RDW 10/09/2023 15.1 (H) Platelets 10/09/2023 259 Glucose POC 10/09/2023 225 (H) Admission on 09/09/2023, Discharged on 09/10/2023 Component Date Value Ventricular Rate 09/09/2023 58 Atrial Rate 09/09/2023 58 NC Interval 09/09/2023 228 QRS DURATION 09/09/2023 146 QT Interval 09/09/2023 470 QTC CALCULATION(BAZETT) 09/09/2023 461 P [place] 09/09/2023 16 R-[place] 09/09/2023 173 T Wave [place] 09/09/2023 7 Glucose POC 09/09/2023 228 (H) Glucose POC 09/09/2023 163 (H) Sodium 09/10/2023 136 Potassium 09/10/2023 4.1 Chloride 09/10/2023 103 CO2 09/10/2023 26 Anion Gap 09/10/2023 11 BUN 09/10/2023 27 (H) Creatinine 09/10/2023 0.84 BUN/Creatinine Ratio 09/10/2023 32.1 Glucose 09/10/2023 148 (H) Calcium 09/10/2023 9.5 AST 09/10/2023 15 ALT (SGPT) 09/10/2023 12 Alkaline Phosphatase 09/10/2023 67 Total Protein 09/10/2023 5.8 (L) Albumin 09/10/2023 3.5 Total Bilirubin 09/10/2023 0.6 eGFR 09/10/2023 74.7 Magnesium 09/10/2023 2.1 Auto WBC 09/10/2023 8.79 RBC 09/10/2023 4.04 Hemoglobin 09/10/2023 12.4 Hematocrit 09/10/2023 38.0 MCV 09/10/2023 94.1 MCH 09/10/2023 30.7 MCHC 09/10/2023 32.6 RDW 09/10/2023 15.7 (H) Neutrophils Relative 09/10/2023 61.4 Lymphocytes Relative 09/10/2023 22.0 Monocytes Relative 09/10/2023 11.8 Eosinophils Relative 09/10/2023 4.0 Basophils Relative 09/10/2023 0.6 Neutrophils Absolute 09/10/2023 5.40 Lymphocytes Absolute 09/10/2023 1.93 Monocytes Absolute 09/10/2023 1.04 (H) Eosinophils Absolute 09/10/2023 0.35 Basophils Absolute 09/10/2023 0.05 Platelets 09/10/2023 256 nRBC % 09/10/2023 0.0 Immature Granulocytes Re* 09/10/2023 0.2 Immature Granulocytes Ab* 09/10/2023 0.02 Glucose POC 09/10/2023 141 (H) Triglycerides 09/10/2023 89 Cholesterol 09/10/2023 148 LDL Calculated 09/10/2023 77 HDL 09/10/2023 53 Non HDL Cholesterol 09/10/2023 95 Total VLDL-C 09/10/2023 18 Cholesterol/HDL Ratio 09/10/2023 2.8 Hemoglobin A1C 09/10/2023 10.4 (H) Estimated Average Glucose 09/10/2023 252 Glucose POC 09/10/2023 156 (H) Blood testing 03/03/2024: Potassium 4.3, BUN 25, creatinine 0.72, LFTs normal, triglycerides 45, cholesterol 131, HDL 83, LDL 39. Hemoglobin 12.9, platelets 259. Imaging and other tests Echocardiogram 11/07/2023: Global left ventricular systolic function is difficult to assess but appears mildly reduced, visually estimated ejection fraction is 40 to 45%. Normal right ventricular size and systolic function. Anterior free space, trivial effusion versus fat pad. ECG 10/08/2023: Sinus rhythm with occasional Premature ventricular complexes, Baseline 50HZ artifact Non-specific intra-ventricular conduction block, Possible Lateral infarct (cited on or before 03-JUL-2023) Inferior infarct (cited on or before 08-OCT-2023) Abnormal ECG Cardiac catheterization/PCI 10/08/2023: Procedure Performed: IVUS assessment of the LAD. [...] and drug eluting stenting of 70% instent restenosis in the proximal right coronary artery, with reduction of the stenosis to 0% by a Synergy XD 3.0 x 32 mm drug eluting stent, post dilated to 3.25 mm at high pressures. Placement of Impella CP for mechanical circulatory support during high risk percutaneous intervention. Left heart catheterization. Access into the left common femoral artery under ultrasound guidance. Limited left common femoral angiogram. Deployment of two 6F Proglide vascular closure devices for pre-closure in the left common femoral artery. Echocardiogram 09/09/2023: Left Ventricle: The left ventricle appears normal in size. Global left ventricular systolic function is difficult to assess but appears reduced. Left ventricular wall thickness is increased. Left Atrium: The left atrium appears enlarged. Overall Conclusions: Due to suboptimal imaging Lumason contrast was administered for opacification and better delineation of endocardial borders. Cardiac catheterization 09/09/2023: Impression/Findings: Coronary angiogram shows severe three-vessel gambell coronary artery disease with a significant heavily calcified nodule in the ostium of the LAD causing severe stenosis. Other severe lesions involve the circumflex and the RCA. Normal left filling pressures. Normal right filling pressures. no pulmonary hypertension. Normal cardiac output and cardiac index. Uncontrolled systemic hypertension. Plan: Patient will be admitted to the hospital with a plan to proceed with Impella assisted percutaneous coronary intervention which will require rotational atherectomy and shockwave lithotripsy due to heavy calcifications, given her high risk anatomy and left ventricular systolic dysfunction. Aspirin 81 mg daily for life. Statin therapy for life. Guideline directed medical therapy for heart failure. ECG 09/09/2023: Sinus bradycardia with 1st degree A-V block Non-specific intra-ventricular conduction block Lateral infarct (cited on or before 03-JUL-2023) Abnormal ECG Echocardiogram 08/14/2023: CONCLUSION: 1. Moderate concentric left ventricular hypertrophy with mildly reduced systolic function. LVEF is estimated at 45%. 2. Normal right ventricular size and systolic function. 3. Small pericardial effusion. 4. Limited study performed with no Doppler interrogation as requested. ECHO 07/23/2023 CONCLUSION: 1. Moderate concentric left ventricular hypertrophy with moderately to severely reduced systolic function. LVEF is estimated at 30%. 2. Normal right ventricular size and systolic function. 3. Severe left atrial dilatation. 4. Mild mitral regurgitation. 5. Moderate circumferential pericardial effusion with no echocardiographic features of tamponade physiology. ECHO 05/17/2022 Normal LV systolic function, LVEF 60% Grade 1 diastolic dysfunction No significant valvular dysfunction No pericardial effusion \Echocardiogram September 2020: Technically difficult study with poor sound transmission, left ventricular systolic function appears at the lower limits of normal, EF 50 to 55%. Normal right ventricular systolic function. No significant valvular dysfunction. Cardiac cath 2013 Procedure: 1. Successful balloon angioplasty and bare-metal stenting of 90% distal right coronary artery stenosis using VeriFLEX 3.0 x 32 mm stent, postdilated to 3.0 mm at high pressures. 2. Successful balloon dilatation and bare-metal stenting of 80% proximal circumflex stenosis using a VeriFLEX 3.5 x 16 mm bare-metal stent, postdilated to 3.5 mm at high pressures. 3. Successful direct stenting of 80% mid left anterior descending stenosis using a VeriFLEX 3.0 x 28 mm bare-metal stent, postdilated to 3.25 mm at high pressures. 4. Successful balloon dilatation and bare-metal stenting of 80% proximal left anterior descending stenosis using a VeriFLEX 3.5 x 20 mm bare-metal stent. 5. Administration of intracoronary nitroglycerin. 6. Limited right femoral angiography. 7. Deployment of a vascular access closure device. Assessment/Plan Diagnoses and all orders for this visit: Coronary artery disease involving gambell coronary artery of gambell heart with other form of angina pectoris (CMS/HCC) Pericardial effusion - Transthoracic echo (TTE) complete; Future Status post angioplasty with stent Mixed hyperlipidemia Heart failure with improved ejection fraction (HFimpEF) (CMS/HCC) - Transthoracic echo (TTE) complete; Future Primary hypertension She is doing well clinically. She has no angina. No shortness of breath. She has some worsening lower extremity edema and I explained to her that she can take an extra torsemide if needed for leg swelling until the swelling goes back to baseline. Her blood pressure is elevated today but she says that she did not take her medications today. I asked her to do so. Her LV ejection fraction has improved after the intervention. Her recent echocardiogram on 11/07/2023 showed LV ejection fraction of 40 to 45% without significant pericardial effusion. I will not change her medications given previously lower blood pressure with more intense therapy. I explained to her that she needs to continue aspirin and clopidogrel for 1 year after the procedure. Then we can continue aspirin alone and stop clopidogrel in 1 year. I reviewed her recent blood work from 2 days ago which showed LDL at target, renal function good and at baseline. I will plan to see her in follow-up in 6 months with an echocardiogram to follow-up on ventricular function and to rule out recurrence of pericardial effusion. Follow up in about 6 months (around 09/02/2024). Julito Zendejas MD OFFICE VISIT Observed: 03/05/2024 1:00 PM Status: COMPLETED Source: [facility] [id number] Laura Lawson 0 1950 F Date Provider Department Center 03/05/2024 [facility]JULITO ZENDEJAS ESTHE[facility] Family History Problem Relation Age of Onset JABARI disease Mother Heart attack Father Family Status - Relation Status Age at Mother Father Level of Service:71361 NC OFFICE/OUTPATIENT ESTABLISHED MOD MDM 30 MIN ALLERGIES DATE TYPE / CODE NAME / CODE REACTION SEVERITY SOURCE 10/21/2024 Drug Allergy/69656 8002(SNOMED CT) gabapentin/P7789328 15(RXNORM) Chest Pain Unknown [facility] 10/21/2024 Drug Allergy/48081 8002(SNOMED CT) tramadol/T517582136 (RXNORM) sleeplessness Unknown [facility] 03/18/2022 DRUG INGREDI/46728 1003(SNOMED CT) GABAPENTIN Palpitations [facility] 03/18/2022 DRUG INGREDI/70808 1003(SNOMED CT) TRAMADOL Other [facility] /044281053( SNOMED CT) No Known Allergies [facility] /316134455( SNOMED CT) gabapentin Unknown [facility] ENCOUNTERS ADMIT/DISCHARGE ACCOUNT NUMBER ADMITTING ENCOUNTER CLASS LOCATION SOURCE 12/13/2024 [id number] Ambulatory Building:[facility] 12/13/2024 [id number] Ambulatory Building:[facility] 12/13/2024/12/14/19 [id number] GERARDO EDWARDS Ambulatory Buildin 0Room: [facility] VASCULAR POOLBed: 2434 [facility] 12/07/2024/12/08/19 [id number] Ambulatory Building:NOM S SC POD [facility] 12/07/2024/12/08/19 25 [id number] Molly Gallegos [facility] 11/30/2024 [id number] Ambulatory Building:Unk ritika [facility] 11/29/2024 [id number] [facility]leg[facility] 11/09/2024/11/10/19 25 [id number] [facility]10/22/19 25 [id number] Abner Roa [facility] ng:XD [facility] 10/13/2024/10/14/19 [id number] Ambulatory Building:[facility] 09/21/2024/09/22/19 25 [id number] Ambulatory Building:NOM S SC POD [facility] EPIC 09/13/2024/09/14/19 25 [id number] [facility] 09/03/2024/09/04/19 25 [id number] Ambulatory Building:[facility] 09/03/2024/09/04/19 25 [id number] Ambulatory Building:[facility] 08/23/2024 [id number] Ambulatory Buildin 7 [facility] 08/13/2024/08/14/19 25 [id number] Ambulatory Building:[facility] 08/06/2024 [id number] Ambulatory Buildin 7 [facility] 07/19/2024/07/19/19 25 [id number] Ambulatory Building:[facility] 07/07/2024 [id number] Luigi Montana Inpatient Encounter [facility]Building :ICRoom: WW54Cxw: [facility] 07/07/2024 [id number] Luigi Montana Inpatient Encounter [facility]Building :ICRoom: NM30Fmx: [facility] 07/07/2024/07/09/19 25 [id number] Nan, Luigi Inpatient Encounter [facility]Building :ICRoom: VV31Ajz: 01 [facility] 07/07/2024 [id number] Nan, Luigi Inpatient Encounter [facility]Building :ICRoom: MD17Jmn: 01 [facility] 07/07/2024 [id number] Nan, Luigi Inpatient Encounter [facility]Building :ICRoom: JT85Zkw: 01 [facility] 07/07/2024 [id number] Nan, Luigi Inpatient Encounter [facility]Building :ICRoom: BR48Fod: [facility] 07/07/2024 [id number] Nan, Luigi Inpatient Encounter [facility] :FT.EDHOLDRo om: 02Bed: A [facility] 07/07/2024 [id number] Nan, Luigi Inpatient Encounter [facility]Building :CVRoom: HK23Vys: [facility] 07/07/2024 [id number] Emergency [facility]Building :EDRoom: ED-02Bed: CD:[id number] [facility] 06/13/2024/06/13/19 25 [id number] Amaury Chin [facility] 05/19/2024/05/19/20 24 [id number] Devang Saavedra [facility] 05/12/2024/05/12/20 24 [id number] Ambulatory Building:[facility] 05/11/2024 [id number] Ambulatory Building:k [facility] 05/03/2024 [id number] Ambulatory Buildin 7 [facility] 04/27/2024/04/28/20 24 [id number] Ambulatory Building:[facility] 04/22/2024 [id number] Inpatient Encounter Building:[facility] 04/21/2024 [id number] Inpatient Encounter Building:[facility] 04/20/2024 [id number] Inpatient Encounter Building:[facility] 04/20/2024 [id number] Inpatient Encounter Buildin [id number] [facility] 04/20/2024 [id number] Inpatient Encounter Buildin 17375 [facility] 04/20/2024 [id number] Inpatient Encounter Building:[facility] 04/19/2024 [id number] Inpatient Encounter Building:[facility] 04/19/2024 [id number] Inpatient Encounter Building:[facility] 04/19/2024 [id number] Inpatient Encounter Building:[facility] 04/19/2024/04/22/20 24 [id number] NICHO WALLACE Inpatient Encounter Building:[facility] URoom: 3107Bed: 3107-01 [facility] 04/15/2024/04/15/20 24 [id number] Ambulatory Building:NOM [facility] POD [facility] 04/02/2024/04/02/20 24 [id number] Ambulatory Building:[facility] 03/29/2024/03/29/20 24 [id number] Ambulatory Building:[facility] 03/15/2024/03/15/20 24 [id number] Ambulatory Building:[facility] 03/09/2024 [id number] Ambulatory Building:[facility] 03/08/2024/03/08/20 24 [id number] Ambulatory Building:[facility] 03/08/2024 [id number] [facility] 03/05/[facility]24/03/05/20 24 [id number] Ambulatory Building:[facility] 03/03/2024/03/03/20 24 [id number] Ambulatory Building:[facility] 03/02/2024 [id number] Ambulatory Building:[facility] 03/01/2024/03/01/20 24 [id number] Ambulatory Building:CIF AMMED [facility] 02/26/2024/02/26/20 24 [id number] Ambulatory Building:NOM SCIPT [facility] 02/24/2024/02/24/20 24 [id number] Ambulatory Building:NOM SCIPT [facility] 02/18/2024/02/18/20 24 [id number] Ambulatory Building:NOM SCIPT [facility] 02/11/2024/02/11/20 24 [id number] Ambulatory Building:NOM SCIPT [facility] 02/05/2024/02/05/20 24 [id number] Ambulatory Building:NOM S POD [facility] 02/05/2024/02/05/20 24 [id number] Ambulatory Building:NOM SCIPT [facility] 02/03/2024/02/03/20 24 [id number] Ambulatory Building:NOM SCIPT [facility] 01/27/2024/01/27/20 24 [id number] Ambulatory Building:NOM SCIPT [facility] 01/26/2024/01/26/20 24 [id number] [facility] 01/22/2024/01/22/20 24 [id number] Ambulatory Building:NOM SCIPT [facility] 01/20/2024/01/20/20 24 [id number] Ambulatory Building:NOM SCIPT [facility] 01/14/2024/01/14/20 24 [id number] Ambulatory Building:NOM SCIPT [facility] 01/09/2024/01/09/20 24 [id number] Ambulatory Building:NOM SCIPT [facility] 01/08/2024 [id number] [facility] 01/07/2024/01/07/20 24 [id number] Ambulatory Building:NOM SCIPT [facility] 01/01/2024/01/01/20 24 [id number] Ambulatory Building:NOM SCIPT [facility] 12/30/2023/12/30/19 24 [id number] Ambulatory Building:NOM SCIPT [facility] 12/19/2023/07/12 [id number] Ambulatory Building:[facility] EPIC PAYERS ENCOUNTER GUARANTOR PAYER SUBSCRIBER SOURCE 12/13/2024 Primary Insurance:MEDICAREPolic y Number: [id number] Date:0477-26-92Xzzj Name:Medicare LAURA LAWSONDOB: [id number] [place] [address] [facility] 12/13/2024 Secondary Insurance:GENERIC COMMERCIALPolicy Number: [id number] Date:2017-11-07 LAURA A MILENABERDOB: [id number] [place] [address] [facility] 12/13/2024 Primary Insurance:MEDICAREPolic y Number: [id number] Date:7558-89-83Vjmk Name:Medicare LAURA A MILENABERDOB: [id number] [place] [address] [facility] 12/13/2024 Secondary Insurance:GENERIC COMMERCIALPolicy Number: [id number] Date:2017-11-07 LAURA A MILENABERDOB: [id number] [place] [address] [facility] 12/13/2024 Primary Insurance:MEDICAREPolic y Number: [id number] Date:2445-93-08Fynw Name:Medicare LAURA A MILENABERDOB: [id number] [place] [address] [facility] 12/13/2024 Secondary Insurance:GENERIC COMMERCIALPolicy Number: [id number] Date:2017-11-07 LAURA A MILENABERDOB: [id number] [place] [address] [facility] 12/07/2024 LAURA A LEBERDOB: [id number] [place] [address]Juq: () Primary Insurance:MEDICAREPolic y Number: [id number] Date:4451-69-19Xvvk Name:Medicare LAURA LAWSONDOB: [id number] [place] [address] [facility] 12/07/2024 Secondary Insurance:[facility] INSURANCEPolicy Number: [id number] Date:2022-06-09 LAURA A LEBERDOB: [id number] [place] [address] [facility] 12/07/2024 Laura A [id number] [place] [address]Jdc: () Primary Insurance:MedicarePol y Number: [id number] Date:2024-11-29 Laura A LeberDOB: [id number] [place] [address]Wli: () [facility] 12/07/2024 Secondary Insurance:[place] AmericanPolicy Number: [id number] Date:2024-11-29 Laura A LeberDOB: [id number] [place] [address]Rtl: () [facility] 12/07/2024 Tertiary Insuran ce:Self PayPolicy Number: Effective Date:2024-12-03 [facility]24 Laura LeberDOB: [place], [place] [address]Gbn: () Primary Insurance:Medicare [place] Number: [id number] Date:Plan [facility] Torres [id number] [id number]: Laura LeberDOB: [id number] [place] [address], [place] [address]Bga: () [facility] 11/30/2024 Secondary Insurance:United Bah[place]ian InsurancePolicy Number: [id number] Date:Brigido Torres 80[address]TERRY Nevarez [id number]: Laura LeberDOB: [id number] [place] [address], [place] [address]Zsu: () [facility] 11/29/2024 Laura A Thedn3142 [place] [address]Afq: () Primary Insurance:MedicarePolic y Number: [id number] Date:2024-09-06 Laura A LeberDOB: [id number] [place] [address]Xvs: () [facility] 11/29/2024 Secondary Insurance:United AmericanPolicy Number: [id number] Date:2024-09-06 Laura A LeberDOB: [id number] [place] [address]Nlg: () [facility] 11/29/2024 Tertiary Insuran ce:Self PayPolicy Number: Effective Date:2024-09-06 [facility] 11/09/2024 Primary Insurance:MEDICAREPolic y Number: [id number] Date:8424-20-41Zcuh Name:Medicare LAURA A LEBERDOB: [id number] [place] [address] [facility] 11/09/2024 Secondary Insurance:GENERIC COMMERCIALPolicy Number: [id number] Date:2017-11-07 LAURA A LEBERDOB: [id number] [place] [address] [facility] 10/21/2024 Laura A [id number] [place] [address]Vts: () Primary Insurance:MedicarePolic y Number: [id number] Date:2024-10-21 Laura A LeberDOB: [id number] [place] [address]Lny: (HP) [facility] 10/21/2024 Secondary Insurance:United AmericanPolicy Number: [id number] Date:2024-10-21 Laura A LeberDOB: [id number] [place] [address]Ame: () [facility] 10/21/2024 Tertiary Insuran ce:Self PayPolicy Number: Effective Date:2024-10-21 [facility] 10/13/2024 LAURA A LEBERDOB: [place] [address]Asy: () Primary Insurance:MEDICAREPolic y Number: [id number] Date:8774-26-24Tuqb Name:Medicare LAURA A LEBERDOB: [id number] [place] [address] [facility] 10/13/2024 Secondary Insurance:[employer] [place] INSURANCEPolicy Number: [id number] Date:2022-06-09 LAURA A LEBERDOB: [id number] [place] [address] [facility] 09/21/2024 LAURA A LEBERDOB: [id number] [place] [address]Jym: () Primary Insurance:MEDICAREPolic y Number: [id number] Date:9950-46-07Cmep Name:Medicare LAURA A LEBERDOB: [id number] [place] [address] [facility] 09/21/2024 Secondary Insurance:[employer] [place] INSURANCEPolicy Number: [id number] Date:2022-06-09 LAURA A LEBERDOB: [id number] [place] [address] [facility] 09/13/2024 LAURA A LEBERDOB: [id number] [place] [address]Joa: (HP) Primary Insurance:MEDICAREPolic y Number: [id number] Date:8326-00-85Peyj Name:Medicare LAURA A LEBERDOB: [id number] [place] [address] [facility] 09/13/2024 Secondary Insurance:[employer] [place] INSURANCEPolicy Number: [id number] Date:2022-06-09 LAURA A LEBERDOB: [id number] [place] [address] [facility] 09/03/2024 Primary Insurance:MEDICAREPolic y Number: [id number] Date:3866-91-27Oazk Name:Medicare LAURA A LEBERDOB: [id number] [place] [address] [facility] 09/03/2024 Secondary Insurance:GENERIC COMMERCIALPolicy Number: [id number] Date:2017-11-07 LAURA A LEBERDOB: [id number] [place] [address] [facility] 09/03/2024 LAURA A LEBERDOB: [id number] [place] [address]Dep: (HP) Primary Insurance:MEDICAREPolic y Number: [id number] Date:8755-80-72Egkz Name:Medicare LAURA William ABBOTTBERDOB: [id number] [place] [address] [facility] 09/03/2024 Secondary Insurance:[employer] [place] INSURANCEPolicy Number: [id number] Date:2022-06-09 LAURA William MILENABERDOB: [id number] [place] [address] [facility] 08/23/2024 Primary Insurance:MEDICAREPolic y Number: [id number] Date:8863-51-81Isky Name:Medicare LAURA William MILENABERDOB: [id number] [place] [address] [facility] 08/23/2024 Secondary Insurance:GENERIC COMMERCIALPolicy Number: [id number] Date:2017-11-07 LAURA William MILENABERDOB: [id number] [place] [address] [facility] 08/13/2024 LAURA A MILENABERDOB: [place] [address]Dvc: () Primary Insurance:MEDICAREPolic y Number: [id number] Date:2126-27-78Zetg Name:Medicare LAURA A MILENABERDOB: [id number] [place] [address] [facility] 08/13/2024 Secondary Insurance:[employer] [place] INSURANCEPolicy Number: [id number] Date:2022-06-09 LAURA William MILENABERDOB: [id number] [place] [address] [facility] 08/06/2024 Primary Insurance:MEDICAREPolic y Number: [id number] Date:5710-58-60Xepr Name:Medicare LAURA A MILENABERDOB: [id number] [place] [address] [facility] 08/06/2024 Secondary Insurance:GENERIC COMMERCIALPolicy Number: [id number] Date:2017-11-07 LAURA William LEBERDOB: [id number] [place] [address] [facility] 07/19/2024 Primary Insurance:MEDICAREPolic y Number: [id number] Date:7381-84-77Lksj Name:Medicare LAURA Thomas LEBERDOB: [id number] [place] [address] [facility] 07/19/2024 Secondary Insurance:GENERIC COMMERCIALPolicy Number: [id number] Date:2017-11-07 LAURA William LEBERDOB: [id number] [place] [address] [facility] 07/07/2024 [facility]URA A [facility]BERD[facility]: [facility] SQTel: (HP) Primary Insurance:MEDICAREPolic y Number: [id number] Date:4762-47-91YO [address] [address]GT: [facility]2024 Secondary Insurance:[employer] Insurance CompanyPolicy Number: [id number] Date:2024-07-07 [facility]/07/2024 LAURA A LEBERDOB: AUDRICH SQTel: (HP) Primary Insurance:MEDICAREPolic y Number: [id number] Date:4194-78-95IJ Mart [address] [place] [address]XJ: [facility] 07/07/2024 Secondary Insurance:NichewithPolicy Number: [id number] Date:2024-07-07 LAURA A BAM [facility] 07/07/2024 LAURA A LEBERDOB: XIAO RDTel: () Primary Insurance:MEDICAREPolic y Number: [id number] Date:1150-10-11[address] [place] [address]OI: LAURA A BAM [facility] 07/07/2024 Secondary Insurance:[employer] Insurance CompanyPolicy Number: [id number] Date:2024-07-07 LARUA A BAM [facility] 07/07/2024 [facility] SQ[facility] () Primary Insurance:MEDICAREPolic y Number: [id number] Date:0991-72-83QQ [address] [place] [address]PU: [facility] Secondary Insurance:Lenovo Insurance CompanyPolicy Number: [id number] Date:2024-07-07 LAURA A BAM [facility] 07/07/2024 [facility]URA A [facility] SQTel: () Primary Insurance:MEDICAREPolic y Number: [id number] Date:9763-28-41AC [address] [place] [address]GX: [facility] Secondary Insurance:Lenovo Insurance CompanyPolicy Number: [id number] Date:2024-07-07 [facility] 07/07/2024 LAURA A LEBERDOB: ARINRICH SQTel: (HP) Primary Insurance:MEDICAREPolic y Number: [id number] Date:1488-35-69SV [address] [place] [address]TU: LAURA William KUHN [facility] 07/07/2024 Secondary Insurance:Lenovo Insurance CompanyPolicy Number: [id number] Date:2024-07-07 LAURA A BAM [facility] 07/07/2024 [facility] SQTel: (HP) Primary Insurance:MEDICAREPolic y Number: [id number] Date:8760-36-28DT [address] [place] [address]TZ: LAURA William KUNH [facility] 07/07/2024 Secondary Insurance:GroupTie CompanyPolicy Number: [id number] Date:2024-07-07 LAURA William KUHN [facility] 07/07/2024 LAURA William [facility]BERD[facility] SQTel: (HP) Primary Insurance:MEDICAREPolic y Number: [id number] Date:4531-46-34EH [address] [place] [address]KM: LAURA William KUHN [facility] 07/07/2024 Secondary Insurance:Lenovo Insurance CompanyPolicy Number: [id number] Date:2024-07-07 LAURA William KUHN [facility] 07/07/2024 LAURA William LEBERDOB: [place] RDTel: [id number]~[phone] (HP) Primary Insurance:MEDICAREPolic y Number: [id number] Date:5673-16-49NU [address], [place] [address]YE: LAURA KUHN [facility] 07/07/2024 Secondary Insurance:United [place] Insurance CompanyPolicy Number: [id number] Date:2024-07-07 LAURA KUHN [facility] 06/13/2024 Laura Thomas [id number] [place], [facility]Wyb: () Primary Insurance:Self PayPolicy Number: Effective Date:2024-06-13 [facility]24 Laura Thomas [id number] [place] [address]Aed: (HP) Primary Insurance:MedicarePolic y Number: [id number] Date:2024-05-17 Laura William AbbottberDOB: [id number] [place] [address]Cua: () [facility] 05/19/2024 Secondary Insurance:Uevoc AmericanPolicy Number: [id number] Date:2024-05-17 Laura Thomas LeberDOB: 1502-02-49UPM5380 [place] [address]Fmd: () [facility] 05/19/2024 Tertiary Insuran ce:Self PayPolicy Number: Effective Date:2024-05-17 [facility]/12/2024 LAURA William LEBERDOB: [place] [address]Pbq: () Primary Insurance:MEDICAREPolic y Number: [id number] Date:5180-65-29Zoox Name:Medicare LAURA Thomas LEBERDOB: [id number] [place] [address] [facility] 05/12/2024 Secondary Insurance:[employer] GREEN[employer]IC INSURANCEPolicy Number: [id number] Date:2022-06-09 LAURA A MILENABERDOB: 8160-67-13WIS3903 [place] [address] [facility] 05/11/2024 Laura LeberDOB: [place], [place] [address]Saa: () Primary Insurance:Medicare [place]Policy Number: [id number] Date:Plan Name:[place] [id number] [id number]: Laura LeberDOB: 2334-03-25KBC5711 [address] [place], [place] [address]Kbl: () [facility] 05/11/2024 Secondary Insurance:United Bahamian InsurancePolicy Number: [id number] Date:[facility] [address], [place] [id number]: Laura LeberDOB: 2332-42-45JQB5410 [place], [place] [address]Nzp: () [facility] 05/03/2024 Primary Insurance:MEDICAREPolic y Number: [id number] Date:3514-20-05Byiu Name:Medicare LAURA A LEBERDOB: [id number] [place] [address] [facility] 05/03/2024 Secondary Insurance:GENERIC COMMERCIALPolicy Number: [id number] Date:2017-11-07 LAURA A MILENABERDOB: [id number] [place] [address] [facility] 04/27/2024 Primary Insurance:MEDICAREPolic y Number: [id number] Date:7483-07-37Efcl Name:Medicare LAURA A LEBERDOB: 8709-17-17HCS1748 [place] [address] [facility] 04/27/2024 Secondary Insurance:GENERIC COMMERCIALPolicy Number: [id number] Date:2017-11-07 LAURA William LEBERDOB: [id number] [place] [address] [facility] 04/22/2024 Primary Insurance:MEDICAREPolic y Number: [id number] Date:5033-36-25Njcg Name:Medicare LAURA A MILENABERDOB: [id number] [place] [address] [facility] 04/22/2024 Secondary Insurance:GENERIC COMMERCIALPolicy Number: [id number] Date:2017-11-07 LAURA William ABBOTTBERDOB: 1436-04-39ANC3340 [place] [address] [facility] 04/21/2024 Primary Insurance:MEDICAREPolic y Number: [id number] Date:6721-45-73Oplk Name:Medicare LAURA William ABBOTTBERDOB: [id number] [place] [address] [facility] 04/21/2024 Secondary Insurance:GENERIC COMMERCIALPolicy Number: [id number] Date:2017-11-07 LAURA William ABBOTTBERDOB: [id number] [place] [address] [facility] 04/20/2024 Primary Insurance:MEDICAREPolic y Number: [id number] Date:1123-28-79Ipfr Name:Medicare LAURA A MILENABERDOB: [id number] [place] [address] [facility] 04/20/2024 Secondary Insurance:GENERIC COMMERCIALPolicy Number: [id number] Date:2017-11-07 LAURA A LEBERDOB: [id number] [place] [address] [facility] 04/20/2024 Primary Insurance:MEDICAREPolic y Number: [id number] Date:5491-47-92Ovng Name:Medicare LAURA William ABBOTTBERDOB: [id number] [place] [address] [facility] 04/20/2024 Secondary Insurance:GENERIC COMMERCIALPolicy Number: [id number] Date:2017-11-07 LAURA A LEBERDOB: [id number] [place] [address] [facility] 04/20/2024 Primary Insurance:MEDICAREPolic y Number: [id number] Date:3952-88-66Lrat Name:Medicare LAURA A MILENABERDOB: [id number] [place] [address] [facility] 04/20/2024 Secondary Insurance:GENERIC COMMERCIALPolicy Number: [id number] Date:2017-11-07 LAURA A MILENABERDOB: 8513-29-28KYC6932 [place] [address] [facility] 04/20/2024 Primary Insurance:MEDICAREPolic y Number: [id number] Date:5621-50-36Efvx Name:Medicare LAURA A LEBERDOB: [id number] [place] [address] [facility] 04/20/2024 Secondary Insurance:GENERIC COMMERCIALPolicy Number: [id number] Date:2017-11-07 LAURA A LEBERDOB: [id number] [place] [address] [facility] 04/19/2024 Primary Insurance:MEDICAREPolic y Number: [id number] Date:5400-38-37Ttgg Name:Medicare LAURA William ABBOTTBERDOB: [id number] [place] [address] [facility] 04/19/2024 Secondary Insurance:GENERIC COMMERCIALPolicy Number: [id number] Date:2017-11-07 LAURA William LEBERDOB: [id number] [place], [facility] [facility] 04/19/2024 Primary Insurance:MEDICAREPolic y Number: [id number] Date:0930-17-34Rkze Name:Medicare ALURA A MILENABERDOB: [id number] [place], [facility] [facility] 04/19/2024 Secondary Insurance:GENERIC COMMERCIALPolicy Number: [id number] Date:2017-11-07 LAURA William ABBOTTBERDOB: [id number] [place], [facility] [facility] 04/19/2024 Primary Insurance:MEDICAREPolic y Number: [id number] Date:5412-20-91Ijph Name:Medicare LAURA A MILENABERDOB: [id number] [place], [facility] [facility] 04/19/2024 Secondary Insurance:GENERIC COMMERCIALPolicy Number: [id number] Date:2017-11-07 LAURA A LEBERDOB: [id number] [place], [facility] [facility] 04/19/2024 Primary Insurance:MEDICAREPolic y Number: [id number] Date:4665-52-72Xbhu Name:Medicare LAURA A MILENABERDOB: [id number] [place] [address] [facility] 04/19/2024 Secondary Insurance:GENERIC COMMERCIALPolicy Number: [id number] Date:2017-11-07 LAURA William LEBERDOB: [id number] [place] [address] [facility] 04/15/2024 LAURA A LEBERDOB: 2793-96-876333 [place] [address]Ciu: (HP) Primary Insurance:MEDICAREPolic y Number: [id number] Date:0209-87-20Ioes Name:Medicare LAURA A LEBERDOB: [id number] [place] [address] [facility] 04/15/2024 Secondary Insurance:[employer] [place] INSURANCEPolicy Number: [id number] Date:2022-06-09 LAURA A LEBERDOB: [id number] [place] [address] [facility] 04/02/2024 LAURA A [place]BERDOB: [place] [address]Cbf: (HP) Primary Insurance:MEDICAREPolic y Number: [id number] Date:4179-39-78Pude Name:Medicare LAURA A LEBERDOB: [id number] [place] [address] [facility] 04/02/2024 Secondary Insurance:[place] INSURANCEPolicy Number: [id number] Date:2022-06-09 LAURA A LEBERDOB: [id number] [place] [address] [facility] 03/29/2024 LAURA A LEBERDOB: 3275-19-253376 [place] [address]Tud: (HP) Primary Insurance:MEDICAREPolic y Number: [id number] Date:0251-60-30Adiq Name:Medicare LAURA A LEBERDOB: [id number] [place] [address] [facility] 03/29/2024 Secondary Insurance:[facility] INSURANCEPolicy Number: [id number] Date:2022-06-09 LAURA William LEBERDOB: [id number] [place] [address] [facility] 03/15/2024 LAURA A LEBERDOB: 5094-76-138469 [place] [address]Uyk: (HP) Primary Insurance:MEDICAREPolic y Number: [id number] Date:6846-93-05Ygqj Name:Medicare LAURA A LEBERDOB: [id number] [place] [address] [facility] 03/15/2024 Secondary Insurance:[facility] INSURANCEPolicy Number: [id number] Date:2022-06-09 LAURA A LEBERDOB: [id number] [place] [address] [facility] 03/09/2024 Laura LeberDOB: 6599-84-063601 [place], [place] [address]Wsy: (HP) Primary Insurance:Medicare [place]Policy Number: [id number] Date:Plan Name:[facility] [place] [address], [place] [id number]: Laura LeberDOB: 7004-51-81GZC8600 [address] [place], [place] [address]Nwg: (HP) [facility] 03/09/2024 Secondary Insurance:[place] Bah[place] InsurancePolicy Number: [id number] Date: [address] [id number]: Laura LeberDOB: 6889-95-07LBP4186 [place] [address], [place] [address]Dws: (HP) [facility] 03/08/2024 LAURA A LEBERDOB: 1646-26-121829 [place] [address]Pij: (HP) Primary Insurance:MEDICAREPolic y Number: [id number] Date:9179-28-71Abop Name:Medicare LAURA Thomas LEBERDOB: 8500-29-57YWV2350 [place] [address] [facility] 03/08/2024 Secondary Insurance:[employer] INSURANCEPolicy Number: [id number] Date:2022-06-09 LAURA A LEBERDOB: [id number] [place] [address] [facility] 03/08/2024 Laura LeberDOB: 4336-11-678323 [place], [place] [address]Gey: () Primary Insurance:Medicare [place]Policy Number: [id number] Date:Plan Name:[facility] [place] [address], [place] [id number]: Laura LeberDOB: 4158-18-72WLS8608 [place] [address], [place] [address]Vaw: (HP) [facility] 03/08/2024 Secondary Insurance:[place] InsurancePolicy Number: [id number] Date: [place] [address], [place] [id number]: Laura LeberDOB: 5245-75-22EOE9061 [place], [place] [address]Pnp: (HP) [facility] 03/05/2024 Primary Insurance:MEDICAREPolic y Number: [id number] Date:4037-78-58Wazw Name:Medicare LAURA A LEBERDOB: 2000-85-37ZNL2966 [place] [address] [facility] 03/05/2024 Secondary Insurance:GENERIC COMMERCIALPolicy Number: [id number] Date:2017-11-07 LAURA A LEBERDOB: [id number] [place] [address] [facility] 03/03/2024 LAURA A LEBERDOB: 1336-96-084051 [place] [address]Ieq: (HP) Primary Insurance:MEDICAREPolic y Number: [id number] Date:2359-09-27Iilx Name:Medicare LAURA A LEBERDOB: [id number] [place] [address] [facility] 03/03/2024 Secondary Insurance:[employer] [place] INSURANCEPolicy Number: [id number] Date:2022-06-09 LAURA A LEBERDOB: 9326-56-73CKS8337 [place] [address] [facility] 03/02/2024 Laura LeberDOB: 8940-39-721400 [place], [place] [address]Loh: (HP) Primary Insurance:Medicare [place] Number: [id number] Date:Plan Name:[facility] [place] [address]ba, [place] [id number]: Laura LeberDOB: 6252-91-60ORP5016 [place], [place] [address]Bhh: (HP) [facility] 03/02/2024 Secondary Insurance:United [place] InsurancePolicy Number: [id number] Date: [address] [id number]: Laura LeberDOB: 4534-05-70YCX3140 [place], [place] [address]Vvr: (HP) [facility] 03/01/2024 LAURA A LEBERDOB: [place] [address]Wio: (HP) Primary Insurance:MEDICAREPolic y Number: [id number] Date:1886-79-96Acdd Name:Medicare LAURA A LEBERDOB: 1122-82-92AOQ3804 [place] [address] [facility] 03/01/2024 Secondary Insurance:[place] INSURANCEPolicy Number: [id number] Date:2022-06-09 LAURA A LEBERDOB: 9318-84-09KNB1442 [place] [address] [facility] 02/26/2024 LAURA A LEBERDOB: 6707-90-596195 [place] [address]Yti: () Primary Insurance:MEDICAREPolic y Number: [id number] Date:0748-56-15Kefh Name:Medicare LAURA A LEBERDOB: [id number] [place] [address] [facility] 02/26/2024 Secondary Insurance:[place] INSURANCEPolicy Number: [id number] Date:2022-06-09 LAURA A LEBERDOB: 8881-03-40HJX5723 [place] [address] [facility] 02/24/2024 LAURA A LEBERDOB: 1095-42-066059 [place] [address]Toa: (HP) Primary Insurance:MEDICAREPolic y Number: [id number] Date:3148-10-46Pldx Name:Medicare LAURA A LEBERDOB: [id number] [place] [address] [facility] 02/24/2024 Secondary Insurance:[place] INSURANCEPolicy Number: [id number] Date:2022-06-09 LAURA A LEBERDOB: 7536-17-01MFU9871 [place] [address] [facility] 02/18/2024 LAURA A LEBERDOB: 7892-32-191652 [place] [address]Tle: (HP) Primary Insurance:MEDICAREPolic y Number: [id number] Date:4751-76-97Tdct Name:Medicare LAURA A LEBERDOB: [id number] [place] [address] [facility] 02/18/2024 Secondary Insurance:[place] INSURANCEPolicy Number: [id number] Date:2022-06-09 LAURA A LEBERDOB: [id number] [place] [address] [facility] 02/11/2024 LAURA A LEBERDOB: 4672-56-522725 [place] [address]Gff: (HP) Primary Insurance:MEDICAREPolic y Number: [id number] Date:1759-34-05Eooy Name:Medicare LAURA A LEBERDOB: 4964-11-79AMA1438 [place] [address] [facility] 02/11/2024 Secondary Insurance:[place] INSURANCEPolicy Number: [id number] Date:2022-06-09 LAURA A LEBERDOB: 4433-83-59JRS6376 [place] [address] [facility] 02/05/2024 LAURA A LEBERDOB: [place] [address]Psu: (HP) Primary Insurance:MEDICAREPolic y Number: [id number] Date:5876-99-79Dfsa Name:Medicare LAURA ABBOTTBERDOB: 0271-88-22SWK8005 [place] [address] [facility] 02/05/2024 Secondary Insurance:[place] INSURANCEPolicy Number: [id number] Date:2022-06-09 LAURA William LEBERDOB: 4752-09-12DUG7637 [place] [address] [facility] 02/05/2024 LAURA William LEBERDOB: [place] [address]Dmc: (HP) Primary Insurance:MEDICAREPolic y Number: [id number] Date:0119-90-41Fgdg Name:Medicare LAURA William LEBERDOB: [id number] [place] [address] [facility] 02/05/2024 Secondary Insurance:[place] INSURANCEPolicy Number: [id number] Date:2022-06-09 LAURA William LEBERDOB: 6925-82-87OGK4737 [place] [address] [facility] 02/03/2024 LAURA A LEBERDOB: 2195-84-767357 [place] [address]Gqc: (HP) Primary Insurance:MEDICAREPolic y Number: [id number] Date:9356-55-69Tjay Name:Medicare LAURA A LEBERDOB: [id number] [place] [address] [facility] 02/03/2024 Secondary Insurance:[place] INSURANCEPolicy Number: [id number] Date:2022-06-09 LAURA A LEBERDOB: 3363-44-24GYK0222 [place] [address] [facility] 01/27/2024 LAURA A LEBERDOB: [place] [address]Wpm: (HP) Primary Insurance:MEDICAREPolic y Number: [id number] Date:1400-46-28Yzhc Name:Medicare LAURA A LEBERDOB: 7586-96-79QGS6687 [place] [address] [facility] 01/27/2024 Secondary Insurance:[place] INSURANCEPolicy Number: [id number] Date:2022-06-09 LAURA A LEBERDOB: 1937-63-12QGQ1330 [place] [address] [facility] 01/26/2024 LAURA A LEBERDOB: [place] [address]Mgl: (HP) Primary Insurance:MEDICAREPolic y Number: [id number] Date:4396-87-58Biyz Name:Medicare LAURA A LEBERDOB: [id number] [place] [address] [facility] 01/26/2024 Secondary Insurance:[place] INSURANCEPolicy Number: [id number] Date:2022-06-09 LAURA A LEBERDOB: 2042-86-95VPW3282 [place] [address] [facility] 01/22/2024 LAURA A LEBERDOB: [place] [address]Lsu: (HP) Primary Insurance:MEDICAREPolic y Number: [id number] Date:6880-11-36Lijd Name:Medicare LAURA A LEBERDOB: [id number] [place] [address] [facility] 01/22/2024 Secondary Insurance:[place] INSURANCEPolicy Number: [id number] Date:2022-06-09 LAURA A LEBERDOB: [id number] [place] [address] [facility] 01/20/2024 LAURA A LEBERDOB: 3835-95-473617 [place] [address]Exe: (HP) Primary Insurance:MEDICAREPolic y Number: [id number] Date:3542-60-03Seyh Name:Medicare LAURA A LEBERDOB: [id number] [place] [address] [facility] 01/20/2024 Secondary Insurance:[employer] [place] INSURANCEPolicy Number: [id number] Date:2022-06-09 LAURA A LEBERDOB: [id number] [place] [address] [facility] 01/14/2024 LAURA A LEBERDOB: [id number] [place] [address]Vjg: (HP) Primary Insurance:MEDICAREPolic y Number: [id number] Date:8409-84-86Wwkv Name:Medicare LAURA A LEBERDOB: [id number] [place] [address] [facility] 01/14/2024 Secondary Insurance:[place] INSURANCEPolicy Number: [id number] Date:2022-06-09 LAURA A LEBERDOB: [id number] [place] [address] [facility] 01/09/2024 LAURA A LEBERDOB: [place] [address]Mfs: (HP) Primary Insurance:MEDICAREPolic y Number: [id number] Date:3966-75-64Vwzs Name:Medicare LAURA ABBOTTBERDOB: [id number] [place] [address] [facility] 01/09/2024 Secondary Insurance:[facility] INSURANCEPolicy Number: [id number] Date:2022-06-09 LAURA A LEBERDOB: [id number] [place] [address] [facility] 01/08/2024 Laura LeberDOB: [id number] [place], [place] [address]Ctj: (HP) Primary Insurance:Medicare [place]: [id number] Date:Plan Name:[facility] [address] [place] [id number]: Laura LeberDOB: [id number] [place] [address], [place] [address]Fap: (HP) [facility] 01/08/2024 Secondary Insurance[facility] InsurancePolicy Number: [id number] Date:[facility] [address], [place] [id number]: Laura LeberDOB: [id number] [place] [address], [place] [address]Enk: (HP) [facility] 01/07/2024 LAURA A LEBERDOB: [place] [address]Ang: (HP) Primary Insurance:MEDICAREPol y Number: [id number] Date:3457-94-74Svlm Name:Medicare LAURA A LEBERDOB: [id number] [place] [address] [facility] 01/07/2024 Secondary Insurance:[employer] [place] INSURANCEPolicy Number: [id number] Date:2022-06-09 LAURA William LEBERDOB: [id number] [place] [address] [facility] 01/01/2024 LAURA A LEBERDOB: [id number] [place] [address]Umr: (HP) Primary Insurance:MEDICAREPolic y Number: [id number] Date:0089-76-09Ozyf Name:Medicare LAURA William ABBOTTBERDOB: [id number] [place] [address] [facility] 01/01/2024 Secondary Insurance:[place] INSURANCEPolicy Number: [id number] Date:2022-06-09 LAURA William LEBERDOB: [id number] [place] [address] [facility] 12/30/2023 LAURA A LEBERDOB: [id number] [place] [address]Pmp: (HP) Primary Insurance:MEDICAREPolic y Number: [id number] Date:7019-86-04Zlqh Name:Medicare LAURA A LEBERDOB: [id number] [place] [address] [facility] 12/30/2023 Secondary Insurance:UNITED [employer]EN[place] INSURANCEPolicy Number: [id number] Date:2022-06-09 LAURA A LEBERDOB: [id number] [place] [address] [facility] 12/19/2023 LAURA A LEBERDOB: [id number] [place] [address]Syy: () Primary Insurance:MEDICAREPolic y Number: [id number] Date:[id number] Name:Medicare LAURA LAWSONMARI: [id number] [place] [address] [facility] 12/19/2023 Secondary Insurance:[place] [employer] INSURANCEPolicy Number: [id number] Date:2022-06-09 LAURA William SANTA: [id number] [place] [address] [facility]
--- OUTSIDE RECORDS SUMMARY | 2024-12-14 12:28 | XMS_ITS | Continuity of Care Document ---
Author Organization [facility] Address [address] [place] [address] Insurance Providers Payer Plan Claims Address Claims Phone Policy Number Group Number Relation Employer Guarantor Name Guarantor Guarantor Address Guarantor Phone [facility] an [employer] oke ANNETTA DUNN [facility] [address], [place] [address] tel:[phone] MEDICA RE MEDIC ARE tel:tel :[phone] [id number] TV40 [id number] Medica re Rehab- IP Part A Medic are Rehab -IP Part A [id number] [id number] Problems Condition ICD9 code ICD10 code SNOMED code Start Date End Date S tatus Acute cystitis without hematuria N30.00 06/14/2024 Active Type 2 diabetes mellitus with diabetic chronic kidney disease E11.22 06/14/2024 Active Essential (primary) hypertension I10 06/14/2024 Active Pure hypercholesterolemia, unspecified E78.00 06/14/2024 Active Atherosclerotic heart disease of [place] coronary artery without angina pectoris I25.10 06/14/2024 Active Gastro-esophageal reflux disease without esophagitis K21.9 06/14/2024 Active Gout, unspecified M10.9 06/14/2024 Act giovanni Chronic kidney disease, stage 3a N18.31 06/14/2024 Active Presence of coronary angioplasty implant and graft Z95.5 06/14/2024 Active Acquired absence of both cervix and uterus Z90.710 06/14/2024 Active intermediate frame tender (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 of insulin Z79.4 06/14/2024 Active Sleep apnea, unspecified G47.30 06/17/2024 Active Difficulty in walking, not elsewhere classified R26.2 06/21/2024 Active Results Test Value / Unit Interpretation Reference Ran Blood chemistry[] Glucose [Mass/volume] in Ser um or Plasma [2345-7] 81 mg/dL N Blood chemistry[] Glucose [Mass/volume] in Ser um or Plasma [2345-7] 128 mg/dL N Blood chemistry[[id number]] Glucose [Mass/volume] in Ser um or Plasma [2345-7] 134 mg/dL N Blood chemistry[] Glucose [Mass/volume] in Ser um or Plasma [2345-7] 149 mg/dL N Blood chemistry[[id number]] Glucose [Mass/volume] in Ser um or Plasma [2345-7] 110 mg/dL N Blood chemistry[[id number]] Glucose [Mass/volume] in Ser um or Plasma [2345-7] 155 mg/dL N Blood chemistry[[id number]] Glucose [Mass/volume] in Ser um or Plasma [2345-7] 86 mg/dL N Blood chemistry[[id number]] Glucose [Mass/volume] in Ser um or Plasma [2345-7] 135 mg/dL N Blood chemistry[[id number]] Glucose [Mass/volume] in Ser um or Plasma [2345-7] 133 mg/dL N Blood chemistry[[id number]] Glucose [Mass/volume] in Ser um or Plasma [2345-7] 175 mg/dL N Blood chemistry[[id number]] Glucose [Mass/volume] in Ser um or Plasma [2345-7] 153 mg/dL N Blood chemistry[[id number]] Glucose [Mass/volume] in Ser um or Plasma [2345-7] 76 mg/dL N Blood chemistry[[id number]] Glucose [Mass/volume] in Ser um or Plasma [2345-7] 146 mg/dL N Blood chemistry[[id number]] Glucose [Mass/volume] in Ser um or Plasma [2345-7] 203 mg/dL N Blood chemistry[[id number]] Glucose [Mass/volume] in Ser um or Plasma [2345-7] 162 mg/dL N Blood chemistry[[id number]] Glucose [Mass/volume] in Ser um or Plasma [2345-7] 268 mg/dL N Blood chemistry[[id number]] Glucose [Mass/volume] in Ser um or Plasma [2345-7] 113 mg/dL N Blood chemistry[] Glucose [Mass/volume] in Ser um or Plasma [2345-7] 109 mg/dL N Blood chemistry[] Glucose [Mass/volume] in Ser um or Plasma [2345-7] 201 mg/dL N Blood chemistry[] Glucose [Mass/volume] in Ser um or Plasma [2345-7] 247 mg/dL N Blood chemistry[] Glucose [Mass/volume] in Ser um or Plasma [2345-7] 101 mg/dL N Blood chemistry[] Glucose [Mass/volume] in Ser um or Plasma [2345-7] 123 mg/dL N Blood chemistry[] Glucose [Mass/volume] in Ser um or Plasma [2345-7] 195 mg/dL N Blood chemistry[] Glucose [Mass/volume] in Ser um or Plasma [2345-7] 148 mg/dL N Blood chemistry[] Glucose [Mass/volume] in Ser um or Plasma [2345-7] 136 mg/dL N Blood chemistry[] Glucose [Mass/volume] in Ser um or Plasma [2345-7] 133 mg/dL N Blood chemistry[] Glucose [Mass/volume] in Ser um or Plasma [2345-7] 191 mg/dL N Blood chemistry[] Glucose [Mass/volume] in Ser um or Plasma [2345-7] 182 mg/dL N Blood chemistry[] Glucose [Mass/volume] in Ser um or Plasma [2345-7] 151 mg/dL N Blood chemistry[] Glucose [Mass/volume] in Ser um or Plasma [2345-7] 185 mg/dL N Blood chemistry[] Glucose [Mass/volume] in Ser um or Plasma [2345-7] 160 mg/dL N Blood chemistry[] Glucose [Mass/volume] in Ser um or Plasma [2345-7] 194 mg/dL N Blood chemistry[] Glucose [Mass/volume] in Ser um or Plasma [2345-7] 131 mg/dL N Blood chemistry[] Glucose [Mass/volume] in Ser um or Plasma [2345-7] 178 mg/dL N Blood chemistry[] Glucose [Mass/volume] in Ser um or Plasma [2345-7] 188 mg/dL N Blood chemistry[] Glucose [Mass/volume] in Ser um or Plasma [2345-7] 185 mg/dL N Blood chemistry[] Glucose [Mass/volume] in Ser um or Plasma [2345-7] 176 mg/dL N Blood chemistry[] Glucose [Mass/volume] in Ser um or Plasma [2345-7] 172 mg/dL N Blood chemistry[] Glucose [Mass/volume] in Ser um or Plasma [2345-7] 217 mg/dL N Blood chemistry[] Glucose [Mass/volume] in Ser um or Plasma [2345-7] 166 mg/dL N Blood chemistry[] Glucose [Mass/volume] in Ser um or Plasma [2345-7] 95 mg/dL N Blood chemistry[] Glucose [Mass/volume] in Ser um or Plasma [2345-7] 155 mg/dL N Blood chemistry[] Glucose [Mass/volume] in Ser um or Plasma [2345-7] 129 mg/dL N Blood chemistry[] Glucose [Mass/volume] in Ser um or Plasma [2345-7] 126 mg/dL N Blood chemistry[] Glucose [Mass/volume] in Ser um or Plasma [2345-7] 91 mg/dL N Blood chemistry[] Glucose [Mass/volume] in Ser um or Plasma [2345-7] 181 mg/dL N Blood chemistry[] Glucose [Mass/volume] in Ser um or Plasma [2345-7] 157 mg/dL N Blood chemistry[] Glucose [Mass/volume] in Ser um or Plasma [2345-7] 146 mg/dL N Blood chemistry[] Glucose [Mass/volume] in Ser um or Plasma [2345-7] 80 mg/dL N Blood chemistry[] Glucose [Mass/volume] in Ser um or Plasma [2345-7] 151 mg/dL N Blood chemistry[] Glucose [Mass/volume] in Ser um or Plasma [2345-7] 165 mg/dL N Blood chemistry[] Glucose [Mass/volume] in Ser um or Plasma [2345-7] 196 mg/dL N Blood chemistry[] Glucose [Mass/volume] in Ser um or Plasma [2345-7] 112 mg/dL N Blood chemistry[] Glucose [Mass/volume] in Ser um or Plasma [2345-7] 210 mg/dL N Blood chemistry[] Glucose [Mass/volume] in Ser um or Plasma [2345-7] 208 mg/dL N Blood chemistry[] Glucose [Mass/volume] in Ser um or Plasma [2345-7] 88 mg/dL N Blood chemistry[] Glucose [Mass/volume] in Ser um or Plasma [2345-7] 84 mg/dL N Blood chemistry[] Glucose [Mass/volume] in Ser um or Plasma [2345-7] 115 mg/dL N Blood chemistry[] Glucose [Mass/volume] in Ser um or Plasma [2345-7] 135 mg/dL N Blood chemistry[] Glucose [Mass/volume] in Ser um or Plasma [2345-7] 91 mg/dL N Blood chemistry[] Glucose [Mass/volume] in Ser um or Plasma [2345-7] 80 mg/dL N Blood chemistry[] Glucose [Mass/volume] in Ser um or Plasma [2345-7] 117 mg/dL N Blood chemistry[[id number]] Glucose [Mass/volume] in Ser um or Plasma [2345-7] 122 mg/dL N Blood chemistry[[id number]] Glucose [Mass/volume] in Ser um or Plasma [2345-7] 136 mg/dL N Blood chemistry[] Glucose [Mass/volume] in Ser um or Plasma [2345-7] 91 mg/dL N Blood chemistry[[id number]] Glucose [Mass/volume] in Ser um or Plasma [2345-7] 120 mg/dL N Blood chemistry[] Glucose [Mass/volume] in Ser um or Plasma [2345-7] 80 mg/dL N Blood chemistry[] Glucose [Mass/volume] in Ser um or Plasma [2345-7] 84 mg/dL N Blood chemistry[] Glucose [Mass/volume] in Ser um or Plasma [2345-7] 103 mg/dL N Blood chemistry[] Glucose [Mass/volume] in Ser um or Plasma [2345-7] 105 mg/dL N Blood chemistry[] Glucose [Mass/volume] in Ser um or Plasma [2345-7] 106 mg/dL N Blood chemistry[] Glucose [Mass/volume] in Ser um or Plasma [2345-7] 86 mg/dL N Blood chemistry[] Glucose [Mass/volume] in Ser um or Plasma [2345-7] 148 mg/dL N Blood chemistry[] Glucose [Mass/volume] in Ser um or Plasma [2345-7] 201 mg/dL N Blood chemistry[] Glucose [Mass/volume] in Ser um or Plasma [2345-7] 146 mg/dL N Blood chemistry[] Glucose [Mass/volume] in Ser um or Plasma [2345-7] 100 mg/dL N Blood chemistry[] Glucose [Mass/volume] in Ser um or Plasma [2345-7] 163 mg/dL N Blood chemistry[] Glucose [Mass/volume] in Ser um or Plasma [2345-7] 163 mg/dL N Blood chemistry[] Glucose [Mass/volume] in Ser um or Plasma [2345-7] 110 mg/dL N Blood chemistry[] Glucose [Mass/volume] in Ser um or Plasma [2345-7] 154 mg/dL N Blood chemistry[] Glucose [Mass/volume] in Ser um or Plasma [2345-7] 170 mg/dL N Blood chemistry[] Glucose [Mass/volume] in Ser um or Plasma [2345-7] 147 mg/dL N Blood chemistry[] Glucose [Mass/volume] in Ser um or Plasma [2345-7] 219 mg/dL N Blood chemistry[] Glucose [Mass/volume] in Ser um or Plasma [2345-7] 135 mg/dL N Blood chemistry[] Glucose [Mass/volume] in Ser um or Plasma [2345-7] 186 mg/dL N Blood chemistry[] Glucose [Mass/volume] in Ser um or Plasma [2345-7] 261 mg/dL N Blood chemistry[] Glucose [Mass/volume] in Ser um or Plasma [2345-7] 135 mg/dL N Blood chemistry[] Glucose [Mass/volume] in Ser um or Plasma [2345-7] 130 mg/dL N Blood chemistry[] Glucose [Mass/volume] in Ser um or Plasma [2345-7] 169 mg/dL N Blood chemistry[] Glucose [Mass/volume] in Ser um or Plasma [2345-7] 194 mg/dL N Blood chemistry[] Glucose [Mass/volume] in Ser um or Plasma [2345-7] 168 mg/dL N Blood chemistry[] Glucose [Mass/volume] in Ser um or Plasma [2345-7] 112 mg/dL N Blood chemistry[] Glucose [Mass/volume] in Ser um or Plasma [2345-7] 159 mg/dL N Blood chemistry[] Glucose [Mass/volume] in Ser um or Plasma [2345-7] 184 mg/dL N Blood chemistry[] Glucose [Mass/volume] in Ser um or Plasma [2345-7] 155 mg/dL N Blood chemistry[] Glucose [Mass/volume] in Ser um or Plasma [2345-7] 184 mg/dL N Blood chemistry[] Glucose [Mass/volume] in Ser um or Plasma [2345-7] 277 mg/dL N Blood chemistry[] Glucose [Mass/volume] in Ser um or Plasma [2345-7] 260 mg/dL N Blood chemistry[] Glucose [Mass/volume] in Ser um or Plasma [2345-7] 148 mg/dL N Blood chemistry[] Glucose [Mass/volume] in Ser um or Plasma [2345-7] 277 mg/dL N Blood chemistry[[id number]] Glucose [Mass/volume] in Ser um or Plasma [2345-7] 186 mg/dL N Blood chemistry[[id number]] Glucose [Mass/volume] in Ser um or Plasma [2345-7] 282 mg/dL N Blood chemistry[[id number]] Glucose [Mass/volume] in Ser um or Plasma [2345-7] 161 mg/dL N Blood chemistry[] Glucose [Mass/volume] in Ser um or Plasma [2345-7] 182 mg/dL N Blood chemistry[[id number]] Glucose [Mass/volume] in Ser um or Plasma [2345-7] 240 mg/dL N Blood chemistry[[id number]] Glucose [Mass/volume] in Ser um or Plasma [2345-7] 193 mg/dL N Blood chemistry[[id number]] Glucose [Mass/volume] in Ser um or Plasma [2345-7] 159 mg/dL N Blood chemistry[[id number]] Glucose [Mass/volume] in Ser um or Plasma [2345-7] 171 mg/dL N Blood chemistry[[id number]] Glucose [Mass/volume] in Ser um or Plasma [2345-7] 176 mg/dL N Blood chemistry[[id number]] Glucose [Mass/volume] in Ser um or Plasma [2345-7] 238 mg/dL N Blood chemistry[[id number]] Glucose [Mass/volume] in Ser um or Plasma [2345-7] 204 mg/dL N Blood chemistry[[id number]] Glucose [Mass/volume] in Ser um or Plasma [2345-7] 277 mg/dL N Blood chemistry[[id number]] Glucose [Mass/volume] in Ser um or Plasma [2345-7] 222 mg/dL N COVID-19 Test Viral Antigen null flavor [null] See note NEG COVID-19 Test Viral Antigen Blood chemistry[[id number]] Glucose [Mass/volume] in Ser um or Plasma [2345-7] 188 mg/dL N Blood chemistry[[id number]] Glucose [Mass/volume] in Ser um or Plasma [2345-7] 175 mg/dL N Blood chemistry[[id number]] Glucose [Mass/volume] in Ser um or Plasma [2345-7] 204 mg/dL N Blood chemistry[[id number]] Glucose [Mass/volume] in Ser um or Plasma [2345-7] 221 mg/dL N Blood chemistry[[id number]] Glucose [Mass/volume] in Ser um or Plasma [2345-7] 285 mg/dL N Blood chemistry[[id number]] Glucose [Mass/volume] in Ser um or Plasma [2345-7] 199 mg/dL N Blood chemistry[[id number]] Glucose [Mass/volume] in Ser um or Plasma [2345-7] 213 mg/dL N COVID-19 Test Viral Antigen null flavor [null] See note NEG COVID-19 Test Viral Antigen Blood chemistry[[id number]] Glucose [Mass/volume] in Ser um or Plasma [2345-7] 194 mg/dL N Blood chemistry[[id number]] Glucose [Mass/volume] in Ser um or Plasma [2345-7] 345 mg/dL N Blood chemistry[[id number]] Glucose [Mass/volume] in Ser um or Plasma [2345-7] 124 mg/dL N Blood chemistry[[id number]] Glucose [Mass/volume] in Ser um or Plasma [2345-7] 209 mg/dL N Blood chemistry[[id number]] Glucose [Mass/volume] in Ser um or Plasma [2345-7] 172 mg/dL N Blood chemistry[[id number]] Glucose [Mass/volume] in Ser um or Plasma [2345-7] 208 mg/dL N Blood chemistry[[id number]] Glucose [Mass/volume] in Ser um or Plasma [2345-7] 150 mg/dL N COVID-19 Test Viral Antigen null flavor [null] See note NEG COVID-19 Test Viral Antigen Blood chemistry[[id number]] Glucose [Mass/volume] in Ser um or Plasma [2345-7] 196 mg/dL N Blood chemistry[[id number]] Glucose [Mass/volume] in Ser um or Plasma [2345-7] 193 mg/dL N Blood chemistry[[id number]] Glucose [Mass/volume] in Ser um or Plasma [2345-7] 182 mg/dL N Tuberculosis reaction wheal[ 37139-5] Tuberculosis reaction wheal [19626-8] 0 mm NEG Blood chemistry[[id number]] Glucose [Mass/volume] in Ser um or Plasma [2345-7] 132 mg/dL N Blood chemistry[[id number]] Glucose [Mass/volume] in Ser um or Plasma [2345-7] 213 mg/dL N Blood chemistry[[id number]] Glucose [Mass/volume] in Ser um or Plasma [2345-7] 300 mg/dL N Blood chemistry[[id number]] Glucose [Mass/volume] in Ser um or Plasma [2345-7] 289 mg/dL N Blood chemistry[] Glucose [Mass/volume] in Ser um or Plasma [2345-7] 210 mg/dL N COVID-19 Test Viral Antigen null flavor [null] See note NEG COVID-19 Test Viral Antigen Blood chemistry[] Glucose [Mass/volume] in Ser um or Plasma [2345-7] 274 mg/dL N Blood chemistry[[id number]] Glucose [Mass/volume] in Ser um or Plasma [2345-7] 256 mg/dL N Blood chemistry[[id number]] Glucose [Mass/volume] in Ser um or Plasma [2345-7] 207 mg/dL N Blood chemistry[[id number]] Glucose [Mass/volume] in Ser um or Plasma [2345-7] 123 mg/dL N Blood chemistry[[id number]] Glucose [Mass/volume] in Ser um or Plasma [2345-7] 221 mg/dL N Blood chemistry[[id number]] Glucose [Mass/volume] in Ser um or Plasma [2345-7] 140 mg/dL N Tuberculosis reaction wheal[ 18949-4] Tuberculosis reaction wheal [31481-4] See note TB test Blood chemistry[[id number]] Glucose [Mass/volume] in Ser um or Plasma [2345-7] 136 mg/dL N Blood chemistry[[id number]] Glucose [Mass/volume] in Ser um or Plasma [2345-7] 116 mg/dL N Blood chemistry[[id number]] Glucose [Mass/volume] in Ser um or Plasma [2345-7] 156 mg/dL N Blood chemistry[[id number]] Glucose [Mass/volume] in Ser um or Plasma [2345-7] 264 mg/dL N COVID-19 Test Viral Antigen null flavor [null] See note NEG COVID-19 Test Viral Antigen Blood chemistry[] Glucose [Mass/volume] in Ser um or Plasma [2345-7] 228 mg/dL N Blood chemistry[] Glucose [Mass/volume] in Ser um or Plasma [2345-7] 144 mg/dL N Blood chemistry[] Glucose [Mass/volume] in Ser um or Plasma [2345-7] 154 mg/dL N Blood chemistry[] Glucose [Mass/volume] in Ser um or Plasma [2345-7] 226 mg/dL N Blood chemistry[] Glucose [Mass/volume] in Ser um or Plasma [2345-7] 249 mg/dL N Blood chemistry[] Glucose [Mass/volume] in Ser um or Plasma [2345-7] 120 mg/dL N Blood chemistry[[id number]] Glucose [Mass/volume] in Ser um or Plasma [2345-7] 210 mg/dL N Blood chemistry[] Glucose [Mass/volume] in Ser um or Plasma [2345-7] 191 mg/dL N Blood chemistry[[id number]] Glucose [Mass/volume] in Ser um or Plasma [2345-7] 240 mg/dL N Blood chemistry[] Glucose [Mass/volume] in Ser um or Plasma [2345-7] 92 mg/dL N Blood chemistry[[id number]] Glucose [Mass/volume] in Ser um or Plasma [2345-7] 405 mg/dL N Blood chemistry[[id number]] Glucose [Mass/volume] in Ser um or Plasma [2345-7] 210 mg/dL N Blood chemistry[[id number]] Glucose [Mass/volume] in Ser um or Plasma [2345-7] 150 mg/dL N Blood chemistry[[id number]] Glucose [Mass/volume] in Ser um or Plasma [2345-7] 198 mg/dL N Blood chemistry[[id number]] Glucose [Mass/volume] in Ser um or Plasma [2345-7] 146 mg/dL N Blood chemistry[[id number]] Glucose [Mass/volume] in Ser um or Plasma [2345-7] 150 mg/dL N Blood chemistry[[id number]] Glucose [Mass/volume] in Ser um or Plasma [2345-7] 268 mg/dL N Blood chemistry[] Glucose [Mass/volume] in Ser um or Plasma [2345-7] 168 mg/dL N Blood chemistry[] Glucose [Mass/volume] in Ser um or Plasma [2345-7] 159 mg/dL N Blood chemistry[] Glucose [Mass/volume] in Ser um or Plasma [2345-7] 218 mg/dL N Blood chemistry[] Glucose [Mass/volume] in Ser um or Plasma [2345-7] 169 mg/dL N Blood chemistry[] Glucose [Mass/volume] in Ser um or Plasma [2345-7] 286 mg/dL N Blood chemistry[] Glucose [Mass/volume] in Ser um or Plasma [2345-7] 168 mg/dL N Blood chemistry[] Glucose [Mass/volume] in Ser um or Plasma [2345-7] 200 mg/dL N Blood chemistry[] Glucose [Mass/volume] in Ser um or Plasma [2345-7] 149 mg/dL N Blood chemistry[] Glucose [Mass/volume] in Ser um or Plasma [2345-7] 76 mg/dL N Blood chemistry[] Glucose [Mass/volume] in Ser um or Plasma [2345-7] 170 mg/dL N Tuberculosis reaction wheal[ 45513-5] Tuberculosis reaction wheal [54227-2] 0 mm NEG Blood chemistry[] Glucose [Mass/volume] in Ser um or Plasma [2345-7] 154 mg/dL N Blood chemistry[[id number]] Glucose [Mass/volume] in Ser um or Plasma [2345-7] 109 mg/dL N Blood chemistry[[id number]] Glucose [Mass/volume] in Ser um or Plasma [2345-7] 123 mg/dL N Blood chemistry[] Glucose [Mass/volume] in Ser um or Plasma [2345-7] 156 mg/dL N Blood chemistry[] Glucose [Mass/volume] in Ser um or Plasma [2345-7] 144 mg/dL N Tuberculosis reaction wheal[ 36978-2] Tuberculosis reaction wheal [56100-6] See note TB test Blood chemistry[[id number]] Glucose [Mass/volume] in Ser um or Plasma [2345-7] 149 mg/dL N Allergies, adverse reactions, alerts No known allergies and adverse reactions Medications Medication Instructions Route Dosage Frequency Start Date Stop Date Indications Status omeprazole 20 mg tablet,delayed release (DR/EC) (omeprazole) 1 tablet, oral, Once A Day oral 1.0 1.0 d 08/03 Gastro-esophag eal reflux disease without esophagitis Active Trulicity (dulaglutide) 3 mg/0.5 mL pen injector (Trulicity (dulaglutide)) 1.5mg, subcutaneous, Once A Day on Fri subcutane ous 1.0 1.0 d 07/26 Type 2 diabetes mellitus with diabetic chronic kidney disease Active aspirin 81 mg tablet,chewabl e (aspirin) 1 tablet, oral, Once A Day oral 1.0 1.0 d 08/02 Atheroscleroti c heart disease of [place] coronary artery without angina pectoris Active Entresto (sacubitril-va lsartan) 24-26 mg tablet (Entresto (sacubitril-va lsartan)) 0.5 tab, oral, Twice A Day oral 1.0 12.0 h 08/03 Unspecified systolic (congestive) heart failure Active aspirin 81 mg tablet,chewabl e (aspirin) 1 tablet, oral, Once A Day oral 1.0 1.0 d 07/19 Atheroscleroti c heart disease of [place] coronary artery without angina pectoris Active aspirin 81 mg tablet,chewabl e (aspirin) 1 tablet, oral, Once A Day oral 1.0 1.0 d 08/07 Atheroscleroti c heart disease of [place] coronary artery without angina pectoris Active Brilinta (ticagrelor) 90 mg tablet (Brilinta (ticagrelor)) 1 tablet, oral, Twice A Day oral 1.0 12.0 h 07/08 Atheroscleroti c heart disease of [place] coronary artery without angina pectoris Active aspirin 81 mg tablet,chewabl e (aspirin) 1 tablet, oral, Once A Day oral 1.0 1.0 d 07/20 Atheroscleroti c heart disease of [place] coronary artery without angina pectoris Active aspirin 81 mg tablet,chewabl e (aspirin) 1 tablet, oral, Once A Day oral 1.0 1.0 d 07/20 Atheroscleroti c heart disease of [place] coronary artery without angina pectoris Active doxycycline hyclate 100 mg capsule (doxycycline hyclate) 1 capsule, oral, Twice A Day, suspected infection of left heel pressure wound oral 1.0 12.0 h 07/31 Active doxycycline monohydrate 100 mg capsule (doxycycline monohydrate) 1 capsule, oral, Twice A Day, suspected infection of left heel pressure wound oral 1.0 12.0 h 08/01 Active doxycycline hyclate 100 mg capsule (doxycycline hyclate) 1 capsule, oral, Twice A Day, suspected infection of left heel pressure wound oral 1.0 12.0 h 07/22 Active Trulicity (dulaglutide) 1.5 mg/0.5 mL pen injector (Trulicity (dulaglutide)) 1.5mg, subcutaneous, Once A Day on Fri subcutane ous 1.0 1.0 d 08/03 Type 2 diabetes mellitus with diabetic chronic kidney disease Active aspirin 81 mg tablet,chewabl e (aspirin) 1 tablet, oral, Once A Day oral 1.0 1.0 d 08/03 Atheroscleroti c heart disease of [place] coronary artery without angina pectoris Active Brilinta (ticagrelor) 90 mg tablet (Brilinta (ticagrelor)) 1 tablet, oral, Twice A Day oral 1.0 12.0 h 08/03 Atheroscleroti c heart disease of [place] coronary artery without angina pectoris Active amoxicillin 500 mg tablet (amoxicillin) 1 tablet, oral, Twice A Day, sinus infection oral 1.0 12.0 h 08/02 Active cefuroxime axetil 500 mg tablet (cefuroxime axetil) 500 mg, oral, Twice A Day oral 1.0 12.0 h 08/02 Acute cystitis without hematuria Active doxycycline monohydrate 100 mg capsule (doxycycline monohydrate) 1 capsule, oral, Twice A Day, suspected infection of left heel pressure wound oral 1.0 12.0 h 08/02 Active nitroglycerin 0.3 mg tablet, sublingual (nitroglycerin ) 1 tablet, sublingual, Every 5 Minutes - PRN (x 3), chest pain 1 tablet q 5 mins if unrelieved call MD telma soto 1.0 5.0 min 08/02 Atheroscleroti c heart disease of [place] coronary artery without angina pectoris Active Vital Signs Date Vital Result Comment 07/13/2024 08:35 AM Temperature 98 [degF] Respiratory Rate 18 /min Heart Rate 68 /min Blood Pressure Systolic 110 mm[Hg] Blood Pressure Diastolic 60 mm[Hg] 07/13/2024 02:23 PM Body Weight 207 [lb_av] Body Mass Index 37.86 kg/m2 07/13/2024 08:39 AM Oxygen Saturation 99 % 07/14/2024 08:04 AM Temperature 97.9 [degF] Oxygen Saturation 97 % Respiratory Rate 18 /min Heart Rate 58 /min Blood Pressure Systolic 119 mm[Hg] Blood Pressure Diastolic 72 mm[Hg] 07/14/2024 07:44 PM Body Weight 207.5 [lb_av] Body Mass Index 37.95 kg/m2 07/15/2024 09:37 AM Temperature 98 [degF] Oxygen Saturation 96 % Respiratory Rate 18 /min Heart Rate 64 /min Blood Pressure Systolic 100 mm[Hg] Blood Pressure Diastolic 60 mm[Hg] 07/16/2024 09:52 AM Temperature 98.1 [degF] Oxygen Saturation 95 % Respiratory Rate 18 /min Heart Rate 64 /min Blood Pressure Systolic 122 mm[Hg] Blood Pressure Diastolic 70 mm[Hg] 07/16/2024 11:29 PM Body Weight 195.5 [lb_av] Body Mass Index 35.75 kg/m2 07/17/2024 09:02 AM Temperature 98.1 [degF] Oxygen Saturation 99 % Respiratory Rate 18 /min Heart Rate 61 /min Blood Pressure Systolic 112 mm[Hg] Blood Pressure Diastolic 66 mm[Hg] 07/18/2024 08:44 AM Temperature 98.2 [degF] Oxygen Saturation 95 % Respiratory Rate 18 /min Heart Rate 60 /min Blood Pressure Systolic 120 mm[Hg] Blood Pressure Diastolic 72 mm[Hg] 07/19/2024 09:46 AM Temperature 97.9 [degF] Oxygen Saturation 92 % Respiratory Rate 18 /min Heart Rate 58 /min Blood Pressure Systolic 102 mm[Hg] Blood Pressure Diastolic 60 mm[Hg] 07/20/2024 09:43 AM Temperature 97.6 [degF] Oxygen Saturation 97 % Respiratory Rate 18 /min Heart Rate 55 /min Blood Pressure Systolic 116 mm[Hg] Blood Pressure Diastolic 66 mm[Hg] 07/21/2024 08:13 AM Temperature 97.7 [degF] Oxygen Saturation 98 % Respiratory Rate 18 /min Heart Rate 53 /min Blood Pressure Systolic 120 mm[Hg] Blood Pressure Diastolic 70 mm[Hg] 07/22/2024 08:36 AM Temperature 98 [degF] Oxygen Saturation 97 % Respiratory Rate 18 /min Heart Rate 68 /min Blood Pressure Systolic 134 mm[Hg] Blood Pressure Diastolic 72 mm[Hg] 07/23/2024 08:21 AM Temperature 98.2 [degF] Oxygen Saturation 95 % Respiratory Rate 18 /min Heart Rate 76 /min Blood Pressure Systolic 130 mm[Hg] Blood Pressure Diastolic 70 mm[Hg] 07/24/2024 12:29 AM Body Weight 201.1 [lb_av] Body Mass Index 36.78 kg/m2 07/24/2024 09:45 AM Temperature 98.1 [degF] Oxygen Saturation 97 % Respiratory Rate 18 /min Heart Rate 73 /min Blood Pressure Systolic 124 mm[Hg] Blood Pressure Diastolic 76 mm[Hg] 07/25/2024 09:48 AM Temperature 97.9 [degF] Oxygen Saturation 91 % Respiratory Rate 16 /min Heart Rate 56 /min Blood Pressure Systolic 116 mm[Hg] Blood Pressure Diastolic 54 mm[Hg] 07/26/2024 08:05 AM Temperature 98.1 [degF] Oxygen Saturation 96 % Respiratory Rate 18 /min Heart Rate 76 /min Blood Pressure Systolic 122 mm[Hg] Blood Pressure Diastolic 68 mm[Hg] 07/27/2024 08:26 AM Temperature 97.9 [degF] Oxygen Saturation 96 % Respiratory Rate 18 /min Heart Rate 72 /min Blood Pressure Systolic 130 mm[Hg] Blood Pressure Diastolic 70 mm[Hg] 07/28/2024 08:57 AM Temperature 98 [degF] Oxygen Saturation 99 % Respiratory Rate 18 /min Heart Rate 58 /min Blood Pressure Systolic 98 mm[Hg] Blood Pressure Diastolic 55 mm[Hg] 07/30/2024 11:57 PM Body Weight 202.5 [lb_av] Body Mass Index 37.03 kg/m2 Social History No smoking Hx information available Encounters Type CPT Code Date Location Provider Indication s encounter report 06/15/2024 10:51 AM Tommy Beard MD encounter report 06/15/2024 01:1 5 PM - 07/07/2024 02:18 PM Brandon Beard MD encounter report 06/15/2024 01:1 5 PM - 08/02/2024 10:47 AM Brandon Beard MD
--- OUTSIDE RECORDS SUMMARY | 2024-12-14 12:30 | XMS_ITS | Clinical Summary ---
Author Organization [facility] Address [id number] [place] [address] Care Team Providers Care Customer Sales Consultant Name Role Phone Unavailable Primary Care Provider Unavailabl e Allergies No known active allergies Medications meloxicam (MOBIC) 15 mg tablet Take 1 tablet (15 mg total) by mouth in the morning. 3 Active MICONAZOLE-7 2 % vaginal cream Insert 1 applicator into the vagina nightly. 4 Active omeprazole (PriLOSEC) 40 mg capsule Take 1 capsule (40 mg total) by mouth every morning before breakfast. 3 Active potassium chloride (KLOR-CON M 20) 20 MEQ CR tablet Take 1 tablet (20 mEq total) by mouth in the morning and 1 tablet (20 mEq total) before bedtime. Active torsemide (DEMADEX) 20 mg tablet Take 1 tablet (20 mg total) by mouth 2 (two) times a day. 4 Active insulin lispro (HumaLOG) 100 unit/mL injection Inject 0.25 mL (25 Units total) under the skin in the morning and 0.25 mL (25 Units total) at noon and 0.25 mL (25 Units total) in the evening. Inject before meals. 4 Active TOUJEO MAX U-300 SOLOSTAR 300 unit/mL (3 mL) insulin pen Inject 300 mL under the skin in the morning. 4 Active hydrALAZINE (APRESOLINE) 100 mg tablet Take 1 tablet (100 mg total) by mouth 3 (three) times a day. 3 Active TRULICITY 1.5 mg/0.5 mL pen injector Inject 1.5 mg under the skin once a week. 3 Active baclofen (LIORESAL) 10 mg tablet Take 1 tablet (10 mg total) by mouth in the morning and 1 tablet (10 mg total) before bedtime. 4 Active aspirin 81 mg Take 1 tablet (81 mg total) by mouth in the morning. Active allopurinoL (ZYLOPRIM) 300 mg tablet Take 1 tablet (300 mg total) by mouth in the morning. 4 Active Active Problems No known active problems Social History Tobacco Use Types Packs/Day Years Used Date Smoking Tobacco: Never Smokeless Tobacco: Never Tobacco Cessation:Counseling Given: Not Answered Alcohol Use Standard Drinks/Week Comments Not Currently 0 (1 standard drink = 0.6 oz pur e alcohol) PHQ-2 Answer Date Recorded Total Score 0 08/19/2023 Hunger Screening Answer Date Recorded Within the past 12 months we worried whether our food would run out before we got money to buy more. Never True 08/19/2023 Within the past 12 months th e food we bought just didn't last and we didn't have money to get more. Never True 08/19/2023 Comments Unknown Sex and Gender Information Value Date Recorded Sex Assigned at Not on file Legal Sex Female 4:02 PM EST Gender Identity Not on file Sexual Orientation Not on file Last Filed Vital Signs Vital Sign Reading Time Taken Comments Blood Pressure 135/71 12/15/2023 11:12 AM EDT Pulse 86 12/15/2023 11:12 AM EDT Temperature - - Respiratory Rate - - Oxygen Saturation - - Inhaled Oxygen Concentration - - Weight 102.5 kg (226 lb) 12/15/2023 11:12 AM EDT Height 158.1 cm (5' 2.25 ) 12/15/2023 11:12 AM E DT Body Mass Index 41 12/15/2023 11:12 AM EDT Plan of Treatment Health Maintenance Due Date Last Done Comments Diabetic Ophthalmology Exam 1952 Adult BMI Follow Up Plan 1970 Diabetic Foot Exam 1970 DTaP,Tdap and Td Vaccines (1 - Tdap) 11/24/1971 Zoster (Shingles) Vaccine (1 of 2) 2002 Fall Risk Screening 2017 Depression Screening 08/18/2024 08/19/2023 Adult BMI Screening 12/14/2024 12/15/2023 Tobacco Screening 12/14/2024 12/15/2023 Influenza Vaccine 02/07/2025 Medical Devices Not on file Insurance MEDICARE [facility]
--- OUTSIDE RECORDS SUMMARY | 2024-12-14 12:31 | XMS_ITS | Encounter Summary ---
Author Organization [facility] Address [address] [place] [address] Care Team Providers Care Harness Worker Name Role Phone Vlad Cesar MD Primary Care Provider [phone] Encounter Details Date Type Department Care Team (Late st Contact Info) Description 12/01/2024 Telephone [facility] Heart [facility] [address] [place] [address] Nkechi Armenta MA Social History Tobacco Use Types Packs/Day Years Used Date Smoking Tobacco: Never Smokeless Tobacco: Never Alcohol Use Standard Drinks/Week Comments Not Currently 0 (1 standard drink = 0.6 oz pur e alcohol) [facility] Utilities Answer Date Recorded In the [...] any time in the past 12 m [facility], were you homeless or living in a assisted (including now)? No 04/21/2024 Hunger Vital Sign [...] AM EDT documented as of this encounter Miscellaneous Notes * Telephone Encounter - Nkechi Armenta MA - 12/01/2024 11:58 AM EDT We just weighed her she has put on 20 lbs since November 12 2024 documented in this encounter Plan of Treatment Upcoming Encounters Date Type Department Care Team (Late st Contact Info) Description 12/20/2024 2:40 PM EDT Office Visit [facility] [address] [place] [address] Dennis Gilmore, MASONRY INSPECTOR [address] [place] [address] documented as of this encounter Visit Diagnoses Not on filedocumented in this encounter Care Teams Harness Worker Relationship Specialty Start Date End Date Vlad Cesar MD [address] [place] [address] PCP - General 08/19/22 documented as of this encounter
--- OUTSIDE RECORDS SUMMARY | 2024-12-14 12:31 | XMS_ITS | Encounter Summary ---
Author Organization [facility] Address [address] [place] [address] Care Team Providers Care Tree Fruit [employer] Nut Farming Supervisor Name Role Phone Vlad Cesar MD Primary Care Provider [phone] Encounter Details Date Type Department Care Team (Late st Contact Info) Description 12/13/2024 Orders Only [facility] V[facility] [address] [place] [phone] Florencia Hendricks, RN Presence of automatic (implantable) cardiac defibrillator (Primary Dx) Social History Tobacco Use Types Packs/Day Years Used Date Smoking Tobacco: Never Smokeless Tobacco: Never Alcohol Use Standard Drinks/Week Comments Not Currently 0 (1 standard drink = 0.6 oz pur e alcohol) [facility] Utilities Answer Date Recorded In the past 12 months has e [employer], gas, oil, or water [employer] threatened to shut off services in your [...] any time in the past 12 m [facility], were you homeless or living in a jail (including now)? No 04/21/2024 Hunger Vital Sign [...] AM EDT documented as of this encounter Plan of Treatment Upcoming Encounters Date Type Department Care Team (Late st Contact Info) Description 12/20/2024 2:40 PM EDT Office Visit [facility] [address] [place] [address] Dennis Gilmore, ASSISTANT GOLF [employer]RSE SUPERINTENDENT [address] [place] [address] Scheduled Orders Name Type Priority Associated Diagnoses Orde r Schedule Cardiac device check - In Clinic Implantable Cardiac Device Routine Presence of automatic (implantable) cardiac defibrillator Expected: 12/20/2024 (Approximate), Expires: 12/13/2025 Cardiac device check - In Clinic Implantable Cardiac Device Routine Presence of automatic (implantable) cardiac defibrillator Expected: 01/13/2025 (Approximate), Expires: 12/13/2025 documented as of this encounter Visit Diagnoses Diagnosis Presence of automatic (implantable) cardiac defibrillator- Primary documented in this encounter Care Teams [employer] Farming Supervisor Relationship Specialty Start Date End Date Vlad Cesar MD [address] [facility] [address] [place] [address] PCP - General 08/19/22 documented as of this encounter
--- OUTSIDE RECORDS SUMMARY | 2024-12-14 12:31 | XMS_ITS | Clinical Summary ---
Author Organization [facility] Address [address] [place] [address] Care Team Providers Care Productivity Engineer Name Role Phone Vlad Cesar MD Primary Care Provider [phone] Allergies Active Allergy Reactions Criticality Noted Date Comments Gabapentin Palpitations Low 03/18/2022 Other reaction(s): Chest Pain Tramadol Other Low 03/18/2022 Other reaction(s): sleeplessness Medications allopurinol (Zyloprim) 300 mg tablet Take 300 mg by mouth in the morning. 023 Active baclofen (Lioresal) 10 mg tablet Take 10 mg by mouth at bedtime. 022 Active insulin lispro (HumaLOG) 100 unit/mL injection 5 Units with breakfast, with lunch, and with evening meal. Patient reports taking three times daily 15 minutes before meals. Sliding scale Active nitroglycerin (Nitrostat) 0.3 mg SL tablet nitroglycerin 0.3 mg sublingual tablet Active omeprazole (PriLOSEC) [address] capsule Take 20 mg by mouth before breakfast. 023 Active Toujeo Max U-300 SoloStar 300 unit/mL (3 mL) injection Inject 100 Units under the skin in the morning. 022 Active torsemide (Demadex) 20 mg tablet Take 10 mg by mouth in the morning. 023 Active pregabalin (Lyrica) 25 mg capsule Take 25 mg by mouth two times daily. 024 Active ticagrelor (Brilinta) 90 mg tabletIndications :NSTEMI (non-ST elevated myocardial infarction) (CMS/HCC) Take 1 tablet (90 mg) by mouth two times daily for 720 doses. 180 tablet 3 024 2024 Active apixaban (Eliquis) 5 mg tabletIndications :Flutter-fibrilla tion (CMS/HCC) Take 1 tablet (5 mg) by mouth two times daily. 180 tablet 3 024 2024 Active atorvastatin (Lipitor) 80 mg tablet Take 80 mg by mouth at bedtime. Active insulin glargine-yfgn 100 unit/mL solution Inject under the skin. Active meloxicam (Mobic) 15 mg tablet Take 15 mg by mouth in the morning. Active metoprolol succinate XL (Toprol-XL) 25 mg 24 hr tablet Take 12.5 mg by mouth in the morning. Do not crush or chew. Active sacubitril-valsar carrera (Entresto) 24-26 mg tabletIndications :Chronic HFrEF (heart failure with reduced ejection fraction) (CMS/HCC) Take 0.5 tablets by mouth two times daily. 90 tablet 3 025 2025 Active ezetimibe (Zetia) 10 mg tabletIndications :Hyperlipidemia, unspecified hyperlipidemia type TAKE 1 TABLET BY MOUTH EVERY DAY IN THE MORNING 90 tablet 3 025 Active potassium chloride CR (K-Tab) 20 mEq ER tablet Take 20 mEq by mouth in the morning. 025 Active dapagliflozin propanediol (Farxiga) 5 mgIndications:NST JOLIE (non-ST elevated myocardial infarction) (CMS/HCC) Take 1 tablet (5 mg) by mouth in the morning. 90 tablet 3 025 2025 Active spironolactone (Aldactone) 25 mg tabletIndications :Acute systolic heart failure (CMS/HCC),CAD in [place] artery Take 0.5 tablets (12.5 mg) by mouth once daily as directed. 90 tablet 1 025 Active doxycycline (Monodox) 100 mg capsuleIndication s:Cardiomyopathy (CMS/HCC) Take 1 capsule (100 mg) by mouth two times daily for 10 days. Take with at least 8 ounces (large glass) of water, do not lie down for 30 minutes after 20 capsule 025 2024 Active dapagliflozin propanediol (Farxiga) 10 mgIndications:NST JOLIE (non-ST elevated myocardial infarction) (CMS/HCC) Take 1 tablet (10 mg) by mouth in the morning for 94 doses. Do not start before July 08, 2023. 30 tablet 3 024 2024 Discontinued(R eorder) spironolactone (Aldactone) 25 mg tabletIndications :Acute systolic heart failure (CMS/HCC),CAD in [place] artery Take 1 tablet (25 mg) by mouth once daily as directed for 360 doses. 90 tablet 3 024 2024 Discontinued aspirin 81 mg EC tablet Take 81 mg by mouth in the morning. 025 2024 Discontinued(S top Taking at Discharge) dulaglutide (Trulicity) 0.75 mg/0.5 mL pen injectorIndicatio ns:Type 2 diabetes mellitus without complication, with long-term current use of insulin (CMS/HCC) Inject 0.75 mg under the skin 1 (one) time per week. 2 mL 1 025 2024 Discontinued(S top Taking at Discharge) colchicine 0.6 mg tablet Take by mouth in the morning. 025 2024 Discontinued(S top Taking at Discharge) hydrALAZINE (Apresoline) 25 mg tablet Take 25 mg by mouth two times daily. 2024 Discontinued(S top Taking at Discharge) dapagliflozin propanediol (Farxiga) 5 mgIndications:NST JOLIE (non-ST elevated myocardial infarction) (CMS/HCC) Take 1 tablet (5 mg) by mouth in the morning. 90 tablet 3 025 2024 Discontinued(R eorder) Active Problems Problem Noted Date Diagnosed Date Cardiomyopathy 11/09/2024 History of DVT in adulthood 07/19/2024 Impaired skin integrity 07/19/2024 Overview (07/19/2024): Problem added on documentation of skin impairments. Mild mitral regurgitation 07/09/2024 Cognitive communication deficit 07/08/2024 Dysphagia, oral phase 07/08/2024 Muscle weakness (generalized) 06/17/2024 Acquired absence of both cervix and uterus 06/14 Acute cystitis without hematuria 06/14/2024 Carpal tunnel syndrome, left upper limb 06/14/19 Cervicalgia 06/14/2024 Chronic kidney disease, stage 3a 06/14/2024 Other chronic pain 06/14/2024 Pain in left knee 06/14/2024 Type 2 diabetes mellitus wit h diabetic chronic kidney disease 06/14/2024 Unspecified systolic (congestive) heart failure 06/14/2024 Lumbar stenosis with neurogenic claudication Angina pectoris 04/19/2024 Combined forms of age-related cataract of both e yes 12/04/2023 History of lumbar fusion 12/04/2023 Nonexudative age-related macular degeneration Chronic systolic heart failure 10/09/2023 Coronary artery disease invo lving [place] coronary artery of [place] heart with other form of angina pectoris 10/08/2023 Coronary artery disease 09/26/2023 CAD in [place] artery 09/09/2023 Pericardial effusion 08/05/2023 History of carpal tunnel surgery of right wrist 07/31/2023 07/31/2023 Impaired mobility and endurance 07/31/2023 07/31/2023 Morbid obesity with body mas s index (BMI) of 45.0 to 49.9 in adult 07/31/2023 07/31/2023 Acute on chronic diastolic heart failure 024 07/31/2023 Acute exacerbation of CHF (congestive heart fail ure) 07/03/2023 COVID-19 07/03/2023 NSTEMI (non-ST elevated myocardial infarction) 0 07/02/2023 Acquired spondylolisthesis 01/13/202307/31 Diastolic dysfunction 01/13/2023 07/31/2023 Lumbar radiculopathy 01/13/2023 07/31/2023 Paresthesia of skin 01/13/2023 07/31/2023 Primary osteoarthritis of both knees 01/13/2023 07/31/2023 S/P drug eluting coronary stent placement 202207/31/2023 Localized edema 10/28/2022 07/31/2023 Coronary artery disease (CAD) excluded 3 07/31/2023 GERD (gastroesophageal reflux disease) 3 07/31/2023 Hyperlipidemia 10/15/2022 07/31/2023 Thyroid disease 10/15/2022 Difficulty walking 04/24/2021 Pure hypercholesterolemia 09/20/2020 Assessment & Plan (02/26/2023 12:12 PM EDT): Continue lipitor Script completed for lipid level- last lipids noted in chart is from 2020 Reviewed labs 05/2022 and liver function was normal Osteoporosis 03/08/2020 Peripheral venous insufficiency 01/10/2020 Assessment & Plan (02/26/2023 12:15 PM EDT): Continue torsemide F/U with PCP Continue to wear compression to BLE Polyneuropathy due to type 2 diabetes mellitus 0 01/10/2020 Chronic foot ulcer 11/25/2019 Ulcer of foot due to type 2 diabetes mellitus 07/31/2023 Skin sensation disturbance 11/05/2019 Decreased estrogen level 07/28/2019 Diabetic retinopathy associa ollie with type 2 diabetes mellitus 10/30/2018 Dyspnea on exertion 08/04/2018 Osteoarthritis of knee 12/29/2017 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 Umbilical hernia 07/15/2017 Renal mass 05/28/2017 Generalized 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/17/2016 Cerebrovascular disease 02/01/2016 Allergic rhinitis 07/12/2015 History of hysterectomy 07/12/2015 Hyperglycemia due to type 2 diabetes mellitus supervisor policy change clerks current use of insulin 07/12/2015 Uric acid nephrolithiasis 07/12/2015 Pulmonary function studies abnormal 11/02/2013 Preoperative evaluation to r ule out surgical contraindication 10/21/2013 Gout 10/08/2013 History of arthritis 10/08/2013 Morbid obesity 10/08/2013 Type 2 diabetes mellitus without complication Benign essential hypertension 10/07/2013 Assessment & Plan (02/26/2023 12:14 PM EDT): Hypertension is controlled currently 136/67 Renal function stable from labs 05/2022, K+ normal Continue candesartan, hydralazine, labetolol, torsemide Coronary atherosclerosis 10/07/2013 Assessment & Plan (02/26/2023 12:13 PM EDT): Coronary artery disease is stable Continue GDMT- ASA, lipitor, labetolol continue risk factor modifications- heart healthy diet, regular exercise as tolerated and continue all medications. 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 Obstructive sleep apnea syndrome 10/07/2013 Resolved Problems Problem Noted Date Diagnosed Date Resolved Date Acute systolic heart failure 08/28/2023 10/09/2023 Encounters Date Type Department Care Team Description 12/13/2024 11:30 AM EDT - 12/13/2024 2:30 PM EDT Surgery [facility] Heart [facility] [address] [place] [address] Gerardo Morris MD Implant ICD - biventricular 12/13/2024 9:54 AM EDT - 12/13/2024 4:33 PM EDT Hospital Encounter [facility] Heart [facility] [address] [place] [address] Gerardo Morris MD Cardiomyopathy (CMS/HCC) (Primary Dx); Cardiomyopathy, unspecified type (CMS/HCC) Discharge Disposition: Home or Self Care () 12/13/2024 Orders Only [facility] Heart [facility] [address] [place] [address] Florencia Hendricks RN Presence of automatic (implantable) cardiac defibrillator (Primary Dx) 12/13/2024 Travel 12/10/2024 Refill [facility] at [place] [address] [place] [address] Rudy Zendejas MD Acute systolic heart failure (CMS/HCC); CAD in [place] artery 12/06/2024 Orders Only [facility] Heart [facility] [address] [place] [address] Indiana Wren RN Chronic systolic heart failure (CMS/HCC) (Primary Dx) 12/01/2024 Telephone [facility] [address] [place] [address] Nkechi Armenta MA 11/17/2024 Orders Only [facility] [address] [facility] [place] [address] Nkechi Armenta MA NSTEMI (non-ST elevated myocardial infarction) (CMS/HCC) 11/09/2024 1:15 PM EDT Office Visit [facility] [address] [facility] [address] Gerardo Morris MD Chronic HFrEF (heart failure with reduced ejection fraction) (CMS/HCC); Cardiomyopathy, unspecified type (CMS/HCC) 11/09/2024 Orders Only [facility] [address] [facility] [place] [address] Nkechi Armenta MA Cardiomyopathy, unspecified type (CMS/HCC) 10/28/2024 Refill [facility] [address] [facility] [place] [address] Tamie San CNP Hyperlipidemia, unspecified hyperlipidemia type 10/27/2024 Telephone [facility] [address] [place] [address] Vandana Medina MA from Last 3 Months Family History Medical History Relation Name Comments Heart attack Father JABARI disease Mother Relation Name Status Comments Father Mother Social History Tobacco Use Types Packs/Day Years Used Date Smoking Tobacco: Never Smokeless Tobacco: Never Tobacco Cessation:Counseling Given: Not Answered Alcohol Use Standard Drinks/Week Comments Not Currently 0 (1 standard drink = 0.6 oz pur e alcohol) [facility] Utilities Answer Date Recorded In the past 12 months has e electric, gas, oil, or water [employer] threatened to shut off services in your [...] any time in the past 12 m [facility], were you homeless or living in [...] Heterosexual or Straight 07/2023 7:54 AM EDT Last Filed Vital Signs Vital Sign Reading Time Taken Comments Blood Pressure 120/81 12/13/2024 4:00 PM EDT Pulse 74 12/13/2024 4:00 PM EDT Temperature 36.3 C (97.4 F) 04/22/2024 12:23 PM EST Respiratory Rate 19 12/13/2024 4:00 PM EDT Oxygen Saturation 100% 12/13/2024 4:00 PM EDT Inhaled Oxygen Concentration - - Weight 89.4 kg (197 lb) 11/09/2024 1:02 PM EDT Height 157.5 cm (5' 2 ) 11/09/2024 1:02 PM EDT Body Mass Index 36.03 11/09/2024 1:02 PM EDT Plan of Treatment Upcoming Encounters Date Type Department Care Team (Late st Contact Info) Description 12/20/2024 2:40 PM EDT Office Visit [facility] at [facility] [address] [place] [address] Dennis Gilmore, OBSTETRIC ANAESTHETIST [address] [place] [address] Health Maintenance Due Date Last Done Comments CT Colonography 1950 Colonoscopy 1950 Colorectal Cancer Screening 1950 FIT-DNA 1950 FIT 1950 FOBT 1950 Medicare Annual Wellness (AWV) 1950 Sigmoidoscopy 1950 Diabetes: Retinopathy Screening 1962 Depression Screening 1964 Pneumococcal Vaccine: 50+ Years (1 of 2 - PCV) 11/24/1971 Adult Tetanus 1974 Mammogram 1992 Zoster Vaccines (1 of 2) 2002 COVID-19 Vaccine (2023-2 5 season) 2024 Diabetes: Hemoglobin A1C 07/20/2024 024, 09/10/2023, 07/03/2023 Influenza Vaccine (#1) 2025 Fall Risk Screening 04/22/2025 04/22/2024 HIB Vaccines Aged Out No longer eligi ble based on patient's age to complete this topic HPV Vaccines Aged Out No longer eligi ble based on patient's age to complete this topic IPV Vaccines Aged Out No longer eligi ble based on patient's age to complete this topic Meningococcal B Vaccine Aged Out No l onger eligible based on patient's age to complete this topic Meningococcal Vaccine Aged Out No stephen jabari eligible based on patient's age to complete this topic Rotavirus Vaccines Aged Out No longer eligible based on patient's age to complete this topic Medical Devices Implanted Type Area Carpenter Prototype Device Identifier Shelf Expiration Date Model / Serial / Lot Stent,Synergy Mr 3.00 X 38 - [id number] Implanted:Qty : 1 on 10/08/2023 by Rudy Zendejas MD at [facility] Drug Eluting Stent [employer] [id number] 04/27/2025 [id number] / / [id number] Stent,Synergy Mr 3.00 X 32 - [id number] Implanted:Qty : 1 on 10/08/2023 by Rudy Zendejas MD at [facility] Drug Eluting Stent [employer] [id number] 06/12/2025 [id number] / / [id number] Defib,Cardiac ,Dual,Dr Malone Df4 - [id number] - [id number] Implanted:Qty : 1 on 12/13/2024 by Gerardo Morris MD at [facility] ICD N/A: Chest [employer] [id number] 10/06/2026 [id number] / [id number] / Pamira S 60 Implanted:Qty : 1 on 12/13/2024 by Gerardo Morris MD at [facility] Lead Left: Heart [employer] [id number] 08/06/2026 [id number] / [id number] / Lead,Solia,S 45 - [id number] - [id number] Implanted:Qty : 1 on 12/13/2024 by Gerardo Morris MD at [facility] Lead Left: Heart [employer] [id number] 10/06/2026 [id number] / [id number] / Stent,Synergy [place],Marcos 3.5x28m - [id number] Implanted:Qty : 1 on 10/08/2023 by Rudy Zendejas MD at [facility] Stent [employer] [id number] 02/10/2025 [id number] / / [id number] Procedures Procedure Name Priority Date/Time Associated Diagnosis Comments ECG 12-LEAD Routine 12/13/2024 4:20 PM EDT IMPLANT ICD - BIV Routine 12/13/2024 2:0 7 PM EDT Cardiomyopathy, unspecified type (CMS/HCC) ECG 12-LEAD Routine 12/13/2024 11:06 AM EDT ECG 12 LEAD UNIT PERFORMED Routine 11/09/2024 2:14 PM EDT Chronic HFrEF (heart failure with reduced ejection fraction) (CMS/HCC) Cardiomyopathy, unspecified type (CMS/HCC) HEMOGLOBIN A1C Routine 04/19/2024 6:02 AM EST from Last 3 Months or Most Recently Relevant to Health Maintenance Results * ECG 12 lead (12/13/2024 4:20 PM EDT) Only the most recent of2 resultswithin the time period is included. Ventricular Rate 82 BPM GE MUSE Atrial Rate 82 BPM GE MUSE MI Interval 166 ms GE MUSE QRS DURATION 174 ms GE MUSE QT Interval 452 ms GE MUSE QTC CALCULATION(BAZE TT) 528 ms GE MUSE P Dahlgren 68 degrees GE MUSE R-Dahlgren 159 degrees GE MUSE T Wave Dahlgren 4 degrees GE MUSE 12/13/2024 2:46 PM [...] J. (57) on 12/13/2024 4:39:46 PM us Gerarod Morris MD ECG ORDERABLES Final Result GE [...] using modified seldinger technique using a 5 Finnish micro-puncture needle on two occasions and 0.35 [...] for the device above the muscle. 6 Finnish Safesheaths were placed over the wire. Since [...] lead position on orthogonal views (MATTSON and DANISH) to confirm septal position, the screw was [...] lead position on orthogonal views (MATTSON and DANISH), the screw was activated. Good sensing parameters, [...] Result - Final * ECG 12 lead unit performed (11/09/2024 2:14 PM EDT) us Gerardo Morris MD ECG ORDERABLES Final Result * (ABNORMAL) Hemoglobin A1c (04/19/2024 6:02 AM EST) Hemoglobin A1C 9.7(H) 4.0 - 6.0 % 04/20/2024 8:20 AM EST [facility] ([facility]) Estimated Average Glucose 232 mg/dL 04/20/2024 8:20 AM EST [facility] ([facility]) Blood Venous blood specimen / Unknown Arterial Line / Unknown 04/19/2024 6:02 AM EST 04/19/2024 6:09 AM EST us Joshua Segal MD LAB BLOOD ORDERABLES Final Re sult [facility] ([facility]) [address] [place] [address] from Last 3 Months or Most Recently Relevant to Health Maintenance Insurance MEDICARE GENERIC COMMERCIAL Advance Directives * Full Code (Latest Code Status on File) Date Activated Date Inactivated Comments 04/19/2024 5:37 AM 04/22/2024 8:34 PM * Full Code Date Activated Date Inactivated Comments 10/08/2023 2:09 PM 10/09/2023 6:02 PM * Full Code Date Activated Date Inactivated Comments 09/09/2023 12:19 PM 09/10/2023 8:54 PM * Full Code Date Activated Date Inactivated Comments 09/09/2023 12:19 PM 09/09/2023 12:19 PM * Full Code Date Activated Date Inactivated Comments 07/02/2023 11:57 PM 07/07/2023 3:26 PM Care Teams Productivity Engineer Relationship Specialty Start Date End Date Vlad Cesar MD [address] [facility] [address] [place] [address] PCP - General 08/19/22
--- OUTSIDE RECORDS SUMMARY | 2024-12-14 12:31 | XMS_ITS | Encounter Summary ---
Author Organization [facility] Address [address] [place] [address] Care Team Providers Care Bilingual Sales Representative Name Role Phone Vlad Cesar MD Primary Care Provider [phone] Encounter Details Date Type Department Care Team (Latest Contact Info) Description 12/13/2024 Travel Social History Tobacco Use Types Packs/Day Years Used Date Smoking Tobacco: Never Smokeless Tobacco: Never Alcohol Use Standard Drinks/Week Comments Not Currently 0 (1 standard drink = 0.6 oz pur e alcohol) [facility] Utilities Answer Date Recorded In the [...] any time in the past 12 m [facility], were you homeless or living [...] Description 12/20/2024 2:40 PM EDT Office Visit [facility] [address] [place] [address] Dennis Gilmore, POTATO BUCKER [address] [place] [address] documented as of this encounter Visit Diagnoses Not on filedocumented in this encounter Care Teams Bilingual Sales Representative Relationship Specialty Start Date End Date Vlad Cesar MD [address] [place] [address] PCP - General 08/19/22 documented as of this encounter
--- OUTSIDE RECORDS SUMMARY | 2024-12-14 12:31 | XMS_ITS | Encounter Summary ---
Author Organization [facility] Address [address] [place] [address] Care Team Providers Care Conveyor Monitor Name Role Phone Vlad Cesar MD Primary Care Provider [phone] Reason for Visit * Reason Comments Med Refill Encounter Details Date Type Department Care Team (Late st Contact Info) Description 12/10/[address] [facility] Heart at [facility] [address] [place] [address] Rudy Zendejas MD [address] [facility] [address] [facility] [place] [address] Acute systolic heart failure (CMS/HCC); CAD in [place] artery Social History Tobacco Use Types Packs/Day Years Used Date Smoking Tobacco: Never Smokeless Tobacco: Never Alcohol Use Standard Drinks/Week Comments Not Currently 0 (1 standard drink = 0.6 oz pur e alcohol) [facility] Utilities Answer Date Recorded In the past 12 months has [employer], gas, oil, or water [employer] threatened to shut off services in your [...] any time in the past 12 m [facility], were you homeless or living [...] Description 12/20/2024 2:40 PM EDT Office Visit [facility] Heart at [facility] [address] [place] [address] Dennis Gilmore, MECHANICAL TEST TECHNICIAN [address] [place] [address] documented as of this encounter Visit Diagnoses Diagnosis Acute systolic heart failure (CMS/HCC) Acute systolic heart failure CAD in [place] artery documented in this encounter Care Teams Conveyor Monitor Relationship Specialty Start Date End Date Vlad Cesar MD [address] [place] [address] PCP - General 08/19/22 documented as of this encounter
--- NOTE | 2024-12-14 12:32 | XR_ITS ---
[address] [address] Patient Name: LAURA LAWSON MRN: [id number] date: 1950 Sex: F Assigned Patient Location: [facility] Current Patient Location: [facility] Accession/Order Number: [id number] Exam Date: 12/14/2024 15:25 Report Date: 12/14/2024 15:26 At the request of: MISTY EDWARDS MD Procedure: XR chest 2V Plain film chest Single view HISTORY: Cardiomyopathy COMPARISON: 06/13/2024 FINDINGS: SUPPORT DEVICES: None POSTSURGICAL CHANGES: Cardiac device intact HEART: Similar cardiomegaly PULMONARY JANUARY: Mild hilar vascular congestion MEDIASTINUM: Unremarkable LUNGS AND PLEURA: Developing small pleural effusions with adjacent atelectasis no pneumothorax BONY STRUCTURES: Degenerative change ADDITIONAL FINDINGS None XR/XR chest 2V IMPRESSION: Developing small pleural effusions. Consider failure. Intact cardiac device Impression dictated by: Amaury Devlin M.D. 12/14/2024 3:26 PM Dictation Location: [place] [address] Electronically authenticated by: [id number] Y Date: 12/14/2024 15:26
== END 2024-12-14 12:27 | disposition home or self-care (01) ==
LOC: RAD 12:26
PROVIDERS: PCP Internal Medicine; Visit Provider Internal Medicine Cardiovascular Disease
DX: I42.9 Cardiomyopathy, unspecified (principal); J90 Pleural effusion, not elsewhere classified
CPT/HCPCS: 71046

== ENCOUNTER 2024-12-20 15:23 | Outpatient (OUT) | payer MEDICARE, OTHER, SELFPAY ==
--- OUTSIDE RECORDS SUMMARY | 2024-12-07 13:10 | XMS_ITS | Encounter Summary ---
Author Organization [facility] Address [address] [place] [address] Care Team Providers Care It Application Development Manager Name Role Phone Vlad Cesar MD Primary Care Provider [phone] Vlad Cesar MD Unavailable [phone] Reason for Visit * Reason Comments DM Foot Care Dm nail care Encounter Details Date Type Department Care Team ([facility] st Contact Info) Description 12/07/2024 1:10 PM EDT Office Visit [facility] [address] [place] [id number] Narinder Rubi DPM [address] [address] Diabetes mellitus due to underlying condition with diabetic polyneuropathy, without long-term current use of insulin (HCC) (Primary Dx); Pain due to onychomycosis of toenails of both feet; Peripheral venous insufficiency Social History Tobacco Use Types Packs/Day Years Used Date Smoking Tobacco: Never Smokeless Tobacco: Never Tobacco Cessation:Counseling Given: Yes Alcohol Use Standard Drinks/Week Comments Never 0 (1 standard drink = 0.6 oz pur e alcohol) Caffeine: 1-2 cups per day B1300 Health Literacy Answer Date Recor ded How often do you need to hav e someone help you when you read instructions, pamphlets, or other written material from your doctor or pharmacy? Never 02/23/2024 Humiliation, Afraid, Rape, and Kick questionnair e Answer Date Recorded Within the last year, have y ou been afraid of your partner or ex-partner? No 01/12/2023 Within the last year, have y ou been humiliated or emotionally abused in other ways by your partner or ex-partner? No Within the last year, have y ou been kicked, hit, slapped, or otherwise physically hurt by your partner or ex-partner? No 01/12/2023 Within the last year, have y ou been raped or forced to have any kind of sexual activity by your partner or ex-partner? No 01/12/2023 Social Connection and Isolat ion Panel [NHANES] Answer Date Recorded In a typical week, how many times do you talk on the phone with family, friends, or neighbors? More than three times a week 02/23/2024 How often do you get togethe r with friends or relatives? Once a week 02/23/2024 How often do you attend chur ch or taoism services? Never 02/23/2024 Do you belong to any clubs o r organizations such as mu-ism groups, unions, fraternal or athletic groups, or school groups? Yes 02/23/2024 How often do you attend meet ings of the clubs or organizations you belong to? 1 to 4 times per year 02/23/2024 Are you , , di vorced, , never , or living with a partner? Never 02/23/2024 AUDIT-C Answer Date Recorded Q1: How often do you have a drink containing alcohol? Never 02/23/2024 Q2: How many drinks containi ng alcohol do you have on a typical day when you are drinking? Patient does not drink Q3: How often do you have si x or more drinks on one occasion? Never 02/23/2024 Overall Financial Resource Strain (CARDIA) Answe r Date Recorded How hard is it for you to pa y for the very basics like food, housing, medical care, and heating? Not hard at all 02/23/2024 PHQ-2 Answer Date Recorded Patient Health Questionnaire-2 Score 0 10/13/2024 [facility] - Occupational Stress Questionnaire Answer Date Recorded Do you feel stress - tense, restless, nervous, or anxious, or unable to sleep at night because your mind is troubled all the time - these days? Not at all 02/23/2024 Exercise Vital Sign Answer Date Recorde d On average, how many days pe r week do you engage in moderate to strenuous exercise (like a brisk walk)? 0 days 02/23/2024 On average, how many minutes do you engage in exercise at this level? 0 min 02/23/2024 Hunger Vital Sign Answer Date Recorded Within the past 12 months, y ou worried that your food would run out before you got the money to buy more. Never true 02/23/20 24 Within the past 12 months, t he food you bought just didn't last and you didn't have money to get more. Never true 02/23/2024 PRAPARE - Transportation Answer Date Re corded In the past 12 months, has l ack of transportation kept you from medical appointments or from getting medications? No 02/07 In the past 12 months, has l ack of transportation kept you from meetings, work, or from getting things needed for daily living? No 02/23/2024 Housing Stability Vital Sign Answer Chad e Recorded In the last 12 months, was t here a time when you were not able to pay the mortgage or rent on time? No 01/12/2023 Number of Places Lived in the Last Year Not on f ile 01/12/2023 In the last 12 months, was t here a time when you did not have a steady place to sleep or slept in a halfway (including now)? No 01/12/2023 Housing Stability Vital Sign Answer Chad e Recorded In the last 12 months, was t here a time when you were not able to pay the mortgage or rent on time? No 02/23/2024 Number of Times Moved in the Last Year Not on fi le 02/23/2024 At any time in the past 12 m [facility], were you homeless or living in a halfway (including now)? No 02/23/2024 Comments Unknown Sex and Gender Information Value Date Recorded Sex Assigned at Not on file Legal Sex Female 6:47 PM EDT Gender Identity Not on file Sexual Orientation Not on file documented as of this encounter Last Filed Vital Signs Vital Sign Reading Time Taken Comments Blood Pressure - - Pulse - - Temperature - - Respiratory Rate 18 12/07/2024 1:23 PM EDT Oxygen Saturation - - Inhaled Oxygen Concentration - - Weight 86.6 kg (191 lb) 12/07/2024 1:23 PM EDT Height 158.5 cm (5' 2.4 ) 12/07/2024 1:23 PM EDT Body Mass Index 34.49 12/07/2024 1:23 PM EDT documented in this encounter Progress Notes * Narinder Rubi, DPM - 12/07/2024 1:10 PM EDT Patient: Macy Russ : 1950 PCP: Vlad Cesar MD SUBJECTIVE This is a 74 y.o. female that presents today with a [...] of venous stasis to b/l lower extremities. Patient has heels wrapped in [facility] and home Health is taking care of condition Allergies: Allergies Allergen Reactions Gabapentin Palpitations Tramadol Other Past Medical History: Past Medical History: Diagnosis Date Angiomyolipoma of kidney Arthritis Unknown COPD (chronic obstructive pulmonary disease) (HCC) Coronary artery disease (CAD) excluded Diabetes (HCC) GERD (gastroesophageal reflux disease) Gout Hyperlipidemia Hypertension Kidney stones Obesity Sleep apnea Thyroid disease Type 2 diabetes mellitus (HCC) Umbilical hernia without obstruction and without gangrene Medications: Current Outpatient Medications: allopurinol (Zyloprim) 300 MG tablet, Take 1 tablet (300 mg) by mouth Daily, Disp: 100 tablet, Rfl:3 apixaban (Eliquis) 5 MG tablet, Take 5 mg by mouth in the morning and 5 mg before bedtime., Disp: ,Rfl: atorvastatin (Lipitor) 80 MG tablet, TAKE 1 TABLET BY MOUTH EVERY DAY AT BEDTIME, Disp: 100 tablet,Rfl: 3 baclofen (Lioresal) 10 MG tablet, TAKE 1 TABLET IN THE MORNING AND 1 TABLET BEFORE BEDTIME, Disp: 180 tablet, Rfl: 3 BD Insulin Syringe U/F 31G X 5/16 1 ML misc, USE DIRECTED UNDER THE SKIN TWO TIMES DAILY, Disp:180 each, Rfl: 3 dapagliflozin (Farxiga) 5 MG, Take 1 tablet (5 mg) by mouth Daily, Disp: 100 tablet, Rfl: 3 Dulaglutide (Trulicity) 0.75 MG/0.5ML solution auto-injector, Inject 0.75 mg under the skin 1 (one)time per week, Disp: 2 mL, Rfl: 5 ezetimibe (Zetia) 10 MG tablet, Take 1 tablet (10 mg) by mouth Daily, Disp: 100 tablet, Rfl: 3 insulin glargine (Toujeo Max SoloStar) 300 UNIT/ML injection, Inject 20 Units under the skin at bedtime, Disp: , Rfl: insulin lispro (HumaLOG) 100 UNIT/ML injection, Inject 1-4 times per day as directed., Disp: , Rfl: insulin pen needle (BD Pen Needle Cass 2nd Gen) 32G x 4 mm misc, USE DIRECTED ONCE DAILY, Disp: 100 each, Rfl: 3 insulin syringe-needle U-100 31G X 5/16 0.5 mL misc, Inject under the skin 2 (two) times a day. Use as instructed, Disp: , Rfl: lidocaine (Lidoderm) 5 % patch, PLACE 1 PATCH ON MOST PAINFUL AREA ON SKIN ONCE DAILY NEEDED FORPAIN *ON FOR 12HRS/OFF FOR 12HRS (Patient not taking: Reported on 09/13/2024), Disp: , Rfl: meloxicam (Mobic) 15 MG tablet, Take 1 tablet (15 mg) by mouth Daily, Disp: 100 tablet, Rfl: 3 metoprolol succinate XL (Toprol-XL) 25 MG 24 hr tablet, Take 1 tablet (25 mg) by mouth Daily, Disp:100 tablet, Rfl: 3 nitroglycerin (Nitrostat) 0.3 MG SL tablet, Place 0.3 mg under the tongue every 5 (five) minutes ifneeded for chest pain., Disp: , Rfl: nystatin (Klayesta) 134762 UNIT/GM powder, Apply topically 2 (two) times a day, Disp: 60 g, Rfl: 1 omeprazole (PriLOSEC) [address] capsule, Take 1 capsule (40 mg) by mouth in the morning. Take beforemeals. Do not crush or chew.., Disp: 100 capsule, Rfl: 3 OneTouch Ultra test strip, TEST ONCE IN THE MORNING,IN THE EVENING,AND BEFORE BEDTIME*E11.65*, Disp: 100 strip, Rfl: 1 pen needle 31G x 6 mm misc, 2 (two) times a day. Use as instructed, Disp: , Rfl: potassium chloride CR (Klor-Con M20) 20 MEQ ER tablet, Take 20 mEq by mouth in the morning and 20 mEq before bedtime. Do not crush or chew.., Disp: , Rfl: pregabalin (Lyrica) 25 MG capsule, Take 25 mg by mouth in the morning and 25 mg before bedtime., Disp: , Rfl: sacubitril-valsartan (Entresto) 24-26 MG tablet, 1/2 tablet by mouth twice a day, Disp: 90 tablet, Rfl: 3 spironolactone (Aldactone) 25 MG tablet, Take 1 tablet (25 mg) by mouth Daily, Disp: 100 tablet, Rfl: 3 ticagrelor (Brilinta) 90 MG tablet, Take 90 mg by mouth in the morning and 90 mg before bedtime., Disp: , Rfl: torsemide (Demadex) 20 MG tablet, Take 1 tablet (20 mg) by mouth Daily, Disp: 30 tablet, Rfl: 11 Social History: Social History Socioeconomic History Marital [...] of Health Financial Resource Strain: Low Risk (04/21/2024) Received from [facility] Overall Financial Resource Strain (CARDIA) Difficulty of Paying Living Expenses: Not hard at all Food Insecurity: No Food Insecurity (04/21/2024) Received from [facility] Hunger Vital Sign Within the past 12 months, you worried that your food would run out before you got the money to buymore.: Never true Ran Out of Food in the Last Year: Not on file Transportation Needs: No Transportation Needs (04/21/2024) Received from [facility] Transportation In the past 12 months, has lack of transportation kept you from medical appointments or from getting medications?: No Lack of Transportation (Non-Medical): Not on file Physical Activity: Inactive (02/23/2024) Exercise Vital Sign Days of Exercise per Week: 0 days Minutes of Exercise per Session: 0 min Stress: No Stress Concern Present (02/23/2024) [facility] - Occupational Stress Questionnaire Feeling of Stress : Not at all Social Connections: Moderately Isolated (02/23/2024) Social Connection and Isolation Panel [NHANES] Frequency of Communication with Friends and Family: More than three times a week Frequency of Social Gatherings with Friends and Family: Once a week Attends Restoration Services: Never Active Member of Clubs or Organizations: Yes Attends Club or Organization Meetings: 1 to 4 times per year Marital Status: Never Intimate Partner Violence: Unknown (04/21/2024) Received from [facility] Humiliation, Afraid, Rape, and Kick questionnaire Fear of Current or Ex-Partner: No Emotionally Abused: Not on file Physically Abused: Not on file Sexually Abused: Not on file Housing Stability: Low Risk (04/21/2024) Received from [facility] Housing Stability Vital Sign In the last 12 months, was there a time when you were not able to pay the mortgage or rent on time?: No Number of Times Moved in the Last Year: Not on file At any time in the past 12 months, were you homeless or living in a halfway (including now)?: No ROS: Gastrointestinal: denies abdominal pain, ulcers, or changes in appetite or bowel habits Musculoskeletal: Positive generalized arthritis to joints and denies loss of strength. Cardiovascular: denies CP, palpitations, irregular rhythms OBJECTIVE LE EXAM: DERM: Elongated thick yellow crumbly nails digits 1 through 10. Diminished hair growth b/l feet. +1pitting edema to bilateral ankles Bandage the posterior heels bilaterally VASC: Negative PT and DP pulses bilaterally NEURO: 5.07 Bock Avi monofilament test diminished to digits and forefoot bilaterally 125Hz tuning fork diminished to 1st MPJ bilaterally ORTHO: Positive pain on palpation to toenails of the left 1,2,3,4,5 toes and right 1,2,3,4,5 toes ASSESSMENT 1. Diabetes mellitus due to underlying condition with diabetic polyneuropathy, without long-term current use of insulin (HCC) 2. Pain due to onychomycosis of toenails of both feet 3. Peripheral venous insufficiency PLAN Discussed proper foot care with patient today. Debride nails in length and thickness digits 1 through 10 Visit spent with patient education on condition and treatment of condition. Patient to keep feet elevated when nonweightbearing Continue with [facility] Narinder Rubi DPM documented in this encounter Plan of Treatment Upcoming Encounters Date Type Department Care Team (Late st Contact Info) Description 12/23/2024 9:15 AM EDT Office Visit [facility] [address] [facility] [address] [place] [address] Vlad Cesar MD [address] [facility] [address] [place] [address] 03/07/2025 11:50 AM EDT Office Visit [facility] [address] [place] [id number] Narinder Rubi DPM [address] [facility] [address] [place] [address] documented as of this encounter Visit Diagnoses Diagnosis Diabetes mellitus due to underlying condition with diabetic polyneuropathy, without long-term current use of insulin (HCC)- Primary Pain due to onychomycosis of toenails of both feet Peripheral venous insufficiency Unspecified venous (peripheral) insufficiency documented in this encounter Care Teams It Application Development Manager Relationship Specialty Start Date End Date Vlad Cesar MD [address] [facility] [address] [place] [address] PCP - General Internal Medicine 10/21/22 Vlad Cesar MD [address] [facility] [address] [place] [address] PCP - ACO Reach 10/31/22 documented as of this encounter
--- OUTSIDE RECORDS SUMMARY | 2024-12-13 09:54 | XMS_ITS | Encounter Summary ---
Author Organization [facility] Address [address] [place] [address] Care Team Providers Care Senior Label Specialist Name Role Phone Vlad Cesar MD Primary Care Provider [phone] Reason for Referral * (Routine) - Pending Review Specialty Diagnoses / Procedures Referred By Contac t Referred To Contact Procedures ECG 12 lead Gerardo Morris MD [address] [place] [phone] Phone: tel: fax: Referral ID Status Reason Start Date Expiration Date V isits Requested Visits Authorized [id number] Pending Review 12/13/2024 12/13/2025 1 1 * (Routine) - Pending Review Specialty Diagnoses / Procedures Referred By Contac t Referred To Contact Procedures ECG 12 lead Gerardo Morris MD [address] [place] [phone] Phone: tel: fax: Referral ID Status Reason Start Date Expiration Date V isits Requested Visits Authorized [id number] Pending Review 12/13/2024 12/13/2025 1 1 Reason for Visit * Auth/Cert (Routine) Specialty Diagnoses / Procedures Referred By Contac t Referred To Contact Diagnoses Cardiomyopathy, unspecified type (CMS/HCC) Cardiomyopathy, unspecified type (CMS/HCC) [I42.9] Procedures Implant ICD - biventricular Gerardo Morris MD [address] [place] [address] Phone: tel: fax: [facility] Heart pending sale to [facility] [address] [place] [address] Phone: tel: fax: Referral ID Status Reason Start Date Expiration Date Visits Re quested Visits Authorized [id number] 1 1 Encounter Details Date Type Department Care Team (Late st Contact Info) Description 12/13/2024 9:54 AM EDT - 12/13/2024 4:33 PM EDT Hospital Encounter [facility] Heart pending sale to [facility] [place] [address] [place] [address] Cardiomyopathy (CMS/HCC) (Primary Dx); Cardiomyopathy, unspecified type (CMS/HCC) Discharge Disposition: Home or Self Care (01) Social History Tobacco Use Types Packs/Day Years Used Date Smoking Tobacco: Never Smokeless Tobacco: Never Alcohol Use Standard Drinks/Week Comments Not Currently 0 (1 standard drink = 0.6 oz pur e alcohol) [facility] Utilities Answer Date Recorded In the past 12 months has e [employer], gas, oil, or water [employer] threatened to shut off services in your home? No 04/21/2024 Humiliation, Afraid, Rape, and Kick questionnair e Answer Date Recorded Within the last year, have y ou been afraid of your partner or ex-partner? No 04/21/2024 Emotionally Abused Not on file 04/21/2024 Physically Abused Not on file 04/21/2024 Sexually Abused Not on file 04/21/2024 Overall Financial Resource Strain (CARDIA) Answe r Date Recorded How hard is it for you to pa y for the very basics like food, housing, medical care, and heating? Not hard at all 04/21/2024 Transportation Answer Date Recorded In the past 12 months, has l ack of transportation kept you from medical appointments or from getting medications? No 04/21/2024 Lack of Transportation (Non-Medical) Not on file 04/21/2024 Housing Stability Vital Sign Answer Chad e Recorded In the last 12 months, was t here a time when you were not able to pay the mortgage or rent on time? No 04/21/2024 Number of Times Moved in the Last Year Not on fi le 04/21/2024 At any time in the past 12 m [facility], were you homeless or living in a snf (including now)? No 04/21/2024 Hunger Vital Sign Answer Date Recorded Within the past 12 months, y ou worried that your food would run out before you got the money to buy more. Never true 04/21/20 24 Ran Out of Food in the Last Year Not on file 04/21/2024 Comments No Sex and Gender Information Value Date Recorded Sex Assigned at Female 09/09/2023 7:54 AM EDT Legal Sex Female 10:08 PM EDT Gender Identity Female 09/09/2023 7:54 AM EDT Sexual Orientation Heterosexual or Straight 07/2023 7:54 AM EDT documented as of this encounter Last Filed Vital Signs Vital Sign Reading Time Taken Comments Blood Pressure 120/81 12/13/2024 4:00 PM EDT Pulse 74 12/13/2024 4:00 PM EDT Temperature - - Respiratory Rate 19 12/13/2024 4:00 PM EDT Oxygen Saturation 100% 12/13/2024 4:00 PM EDT Inhaled Oxygen Concentration - - Weight - - Height - - Body Mass Index - - documented in this encounter Discharge Instructions * Attachments The following attachments cannot be sent through Care Everywhere. * Moderate Conscious Sedation Adult Care After (Japanese) * Cardioverter Defibrillator Implantation Care After (Japanese) documented in this encounter Medications at Time of Discharge allopurinol (Zyloprim) 300 mg tablet Take 300 mg by mouth in the morning. 3 apixaban (Eliquis) 5 mg tabletIndications:F lutter-fibrillation (CMS/HCC) Take 1 tablet (5 mg) by mouth two times daily. 180 tablet 3 4 11/19/20 25 atorvastatin (Lipitor) 80 mg tablet Take 80 mg by mouth at bedtime. 5 baclofen (Lioresal) 10 mg tablet Take 10 mg by mouth at bedtime. 2 dapagliflozin propanediol (Farxiga) 5 mgIndications:NSTEM I (non-ST elevated myocardial infarction) ([facility]/HCC) Take 1 tablet (5 mg) by mouth in the morning. 90 tablet 3 5 11/18/19 26 doxycycline (Monodox) 100 mg capsuleIndications: Cardiomyopathy (CMS/HCC) Take 1 capsule (100 mg) by mouth two times daily for 10 days. Take with at least 8 ounces (large glass) of water, do not lie down for 30 minutes after 20 capsule 5 12/24/19 25 ezetimibe (Zetia) 10 mg tabletIndications:H yperlipidemia, unspecified hyperlipidemia type TAKE 1 TABLET BY MOUTH EVERY DAY IN THE MORNING 90 tablet 3 5 insulin glargine-yfgn 100 unit/mL solution Inject under the skin. 5 insulin lispro (HumaLOG) 100 unit/mL injection 5 Units with breakfast, with lunch, and with evening meal. Patient reports taking three times daily 15 minutes before meals. Sliding scale levoFLOXacin (Levaquin) 750 mg tablet Take 1 tablet by mouth in the morning. 5 meloxicam (Mobic) 15 mg tablet Take 15 mg by mouth in the morning. 5 metoprolol succinate XL (Toprol-XL) 25 mg 24 hr tablet Take 12.5 mg by mouth in the morning. Do not crush or chew. nitroglycerin (Nitrostat) 0.3 mg SL tablet nitroglycerin 0.3 mg sublingual tablet omeprazole (PriLOSEC) [address] capsule Take 20 mg by mouth before breakfast. 3 potassium chloride CR (K-Tab) 20 mEq ER tablet Take 20 mEq by mouth in the morning. 5 pregabalin (Lyrica) 25 mg capsule Take 25 mg by mouth two times daily. 4 sacubitril-valsarta n (Entresto) 24-26 mg tabletIndications:C hronic HFrEF (heart failure with reduced ejection fraction) ([facility]/HCC) Take 0.5 tablets by mouth two times daily. 90 tablet 3 5 07/19/19 26 spironolactone (Aldactone) 25 mg tabletIndications:A cute systolic heart failure (CMS/HCC),CAD in [place] artery Take 0.5 tablets (12.5 mg) by mouth once daily as directed. 90 tablet 1 5 ticagrelor (Brilinta) 90 mg tabletIndications:N STEMI (non-ST elevated myocardial infarction) (CMS/HCC) Take 1 tablet (90 mg) by mouth two times daily for 720 doses. 180 tablet 3 4 04/22/20 25 torsemide (Demadex) 20 mg tablet Take 10 mg by mouth in the morning. 3 Toujeo Max U-300 SoloStar 300 unit/mL (3 mL) injection Inject 100 Units under the skin in the morning. 2 documented as of this encounter H&P Notes * Gerardo Morris MD - 12/13/2024 9:41 AM EDT Images from the original note were not included. [place] [facility] Consult [place] [facility] Reason for visit: Ischemic cardiomyopathy HPI: Macy Russ is a 74 y.o. year old with past medical history of multivessel CAD s/p PCI in 2013 after she was deemed a poor candidate for bypass surgery, systolic heart failure with a follow-up cardiac cath on 09/09/2023 revealing high-grade calcific stenosis in LAD ostium and RCA stenosis with subsequent PCI performed on 10/08/2023 with Impella assist. This resulted in improvement of EF to40 to 45% based on an echo done in October 2023. She had repeat non-STEMI presentation in October 2023 and at that time was noted to have A-fib also and so started on Eliquis and underwent PTCA to the mid LAD in-stent stenosis. In June 2024 she had a repeat STEMI presentation and this time she had a mid LAD lesion where a stent was placed and noted a drop in EF to 20 to 25% with subsequent echocardiogram in July showing an EF of 30%. Following being on guideline directed medical therapy repeat echocardiogram done in October 20, 2024 still shows EF of 30 to 35% PMH: Past Medical History: Diagnosis Date Abnormal ECG CHF (congestive heart failure) (CMS/HCC) Coronary artery disease Diabetes mellitus (CMS/HCC) Gout Hypertension Myocardial infarction (CMS/HCC) Sleep apnea PSH: Past Surgical History: Procedure Laterality Date BACK SURGERY CARDIAC CATHETERIZATION CARPAL TUNNEL RELEASE HYSTERECTOMY THYROID SURGERY SH: Social Drivers of Health Tobacco Use: Low Risk (11/09/2024) Patient History Smoking Tobacco Use: Never Smokeless Tobacco Use: Never Passive Exposure: Not on file Alcohol Use: Not At Risk (02/23/2024) Received from [facility] AUDIT-C Frequency of Alcohol Consumption: Never Average Number of Drinks: Patient does not drink Frequency of Binge Drinking: Never Financial Resource Strain: Low Risk (04/21/2024) Overall Financial Resource Strain (CARDIA) Difficulty of Paying Living Expenses: Not hard at all Food Insecurity: No Food Insecurity (04/21/2024) Hunger Vital Sign Worried About Running Out of Food in the Last Year: Never true Ran Out of Food in the Last Year: Not on file Transportation Needs: No Transportation Needs (04/21/2024) Transportation Lack of Transportation (Medical): No Lack of Transportation (Non-Medical): Not on file Physical Activity: Inactive (02/23/2024) Received from [facility] Exercise Vital Sign Days of Exercise per Week: 0 days Minutes of Exercise per Session: 0 min Stress: No Stress Concern Present (02/23/2024) Received from [facility] [place] [employer] - Occupational Stress Questionnaire Feeling of Stress : Not at all Social Connections: Moderately Isolated (02/23/2024) Received from [facility] Social Connection and Isolation Panel [NHANES] Frequency of Communication with Friends and Family: More than three times a week Frequency of Social Gatherings with Friends and Family: Once a week Attends [employer] Services: Never Active Member of Clubs or Organizations: Yes Attends Club or Organization Meetings: 1 to 4 times per year Marital Status: Never Intimate Partner Violence: Unknown (04/21/2024) Humiliation, Afraid, Rape, and Kick questionnaire Fear of Current or Ex-Partner: No Emotionally Abused: Not on file Physically Abused: Not on file Sexually Abused: Not on file Depression: Not at risk (10/13/2024) Received from [facility] PHQ-2 Patient Health Questionnaire-2 Score: 0 Housing Stability: Low Risk (04/21/2024) Housing Stability Vital Sign Unable to Pay for Housing in the Last Year: No Number of Times Moved in the Last Year: Not on file Homeless in the Last Year: No Utilities: Not At Risk (04/21/2024) [facility] Utilities Threatened with loss of utilities: No Health Literacy: Adequate Health Literacy (02/23/2024) [facility] Frequency of need for help with medical instructions: Never Allergies: Allergies Allergen Reactions Gabapentin Palpitations Other reaction(s): Chest Pain Tramadol Other Other reaction(s): sleeplessness Weight: 89.4kg Visit Vitals OB Status Postmenopausal Smoking Status Never Meds: No current facility-administered medications on file prior to encounter. Current Outpatient Medications on File Prior to Encounter Medication Sig Dispense Refill allopurinol (Zyloprim) 300 mg tablet Take 300 mg by mouth in the morning. apixaban (Eliquis) 5 mg tablet Take 1 tablet (5 mg) by mouth two times daily. 180 tablet 3 aspirin 81 mg EC tablet Take 81 mg by mouth in the morning. atorvastatin (Lipitor) 80 mg tablet Take 80 mg by mouth at bedtime. baclofen (Lioresal) 10 mg tablet Take 10 mg by mouth at bedtime. colchicine 0.6 mg tablet Take by mouth in the morning. dapagliflozin propanediol (Farxiga) 5 mg Take 1 tablet (5 mg) by mouth in the morning. 90 tablet 3 dulaglutide (Trulicity) 0.75 mg/0.5 mL pen injector Inject 0.75 mg under the skin 1 (one) time per week. (Patient not taking: Reported on 09/03/2024) 2 mL 1 ezetimibe (Zetia) 10 mg tablet TAKE 1 TABLET BY MOUTH EVERY DAY IN THE MORNING 90 tablet 3 hydrALAZINE (Apresoline) 25 mg tablet Take 25 mg by mouth two times daily. insulin glargine-yfgn 100 unit/mL solution Inject under the skin. insulin lispro (HumaLOG) 100 unit/mL injection with breakfast, with lunch, and with evening meal. Patient reports taking three times daily 15 minutes before meals. Sliding scale meloxicam (Mobic) 15 mg tablet Take 15 mg by mouth in the morning. metoprolol succinate XL (Toprol-XL) 25 mg 24 hr tablet Take 12.5 mg by mouth in the morning. Do notcrush or chew. nitroglycerin (Nitrostat) 0.3 mg SL tablet nitroglycerin 0.3 mg sublingual tablet omeprazole (PriLOSEC) [address] capsule Take 20 mg by mouth before breakfast. potassium chloride CR (K-Tab) 20 mEq ER tablet Take 20 mEq by mouth in the morning. pregabalin (Lyrica) 25 mg capsule Take 25 mg by mouth two times daily. sacubitril-valsartan (Entresto) 24-26 mg tablet Take 0.5 tablets by mouth two times daily. 90 tablet 3 spironolactone (Aldactone) 25 mg tablet Take 1 tablet (25 mg) by mouth once daily as directed for 360 doses. (Patient taking differently: Take 12.5 mg by mouth once daily as directed.) 90 tablet 3 ticagrelor (Brilinta) 90 mg tablet Take 1 tablet (90 mg) by mouth two times daily for 720 doses. 180 tablet 3 torsemide (Demadex) 20 mg tablet Take 10 mg by mouth in the morning. Toujeo Max U-300 SoloStar 300 unit/mL (3 mL) injection Inject 100 Units under the skin in the morning. ROS: Review of Systems Cardiovascular: Positive for dyspnea on exertion and leg swelling. Physical Exam: CConstitutional: Appearance: She is well-developed. She is obese. [...] General: No swelling. Cervical back: Neck supple. Right lower le+ Pitting Edema present. Left lower le+ Pitting Edema present. Skin: General: Skin is warm and dry. Neurological: General: No focal deficit present. Mental Status: She is alert and oriented to person, place, and time. Psychiatric: Mood and Affect: Mood normal. Behavior: Behavior is cooperative. Judgment: Judgment normal. Labs: @LABRESULTS@ Lab Results Component Value Date HDL 50 04/19/2024 HDL 53 09/10/2023 LDL CALC 41 04/19/2024 LDL CALC 77 09/10/2023 TRIGLYCERIDES 79 04/19/2024 TRIGLYCERIDES 89 09/10/2023 TSH 0.64 04/19/2024 BNP 4,139 (H) 04/20/2024 BNP 2,717 (H) 07/03/2023 EKG: No results found for this or any previous visit (from the past 4464 hours). Echo: 10/20/2024 07/28/2024 Stress test: Coronary angiogram: Left main: large caliber left main; the left main is patent. The LAD stent extends back into the distal left main and is patent LAD: The LAD is a large vessel. The LAD has previously placed ends from the ostium of the LAD all the way through to the distal LAD. The mid LAD has a focal area of 90% in-stent restenosis. This was successfully treated with scoring balloon angioplasty with 10-20% residual stenosis. The apical LAD has diffuse 70% stenosis as well. This was treated with balloon angioplasty with mild improvement and remains with significant stenosis at the apex. However given the apical location, medical therapy is recommended. LCX: The circumflex is a diffusely diseased vessel. There are previously stents throughout the proximal, mid, and distal circumflex. The OM1 is a small caliber vessel and is patent with diffuse disease. The OM 2 is occluded and filled by collaterals. The OM 3 is a small caliber vessel and diffuselydiseased. The distal circumflex is occluded. RCA: the RCA is a moderate size vessel and is patent. There are previously stents throughout the entire proximal and mid and distal RCA. The stents are patent. The outflow of the RCA including the PDA and REMEDIOS are small caliber vessels with diffuse disease. Diagnostic Imaging: No images are attached to the encounter. Assessment and Plan: -Ischemic cardiomyopathy with LBBB -CAD s/p multivessel PCI -Atrial fibrillation -Diabetes mellitus type 2 Patient has got evidence of cardiomyopathy with poor EF recovery despite guideline directed medicaltherapy as well as multiple cardiac interventions. I discussed the procedure in length with figures to the patient and went over the risks, benefits and alternatives of the ICD implantation procedure. I stated to the patient that the risk can be classified as major and minor complications. The minor include discomfort over the incision site, erythema. The major complications include pneumothorax, hemothorax, thromboembolism including DVT stroke systemic emboli endorgan damage and even . We also discussed the possibility of lead perforationleading to pericardial effusion or tamponade which may or may not require surgical intervention as well as the possibility of valve damage from entrapment leading to valve regurgitation as well as inappropriate shock from the ICD. Overall the risk of these complications ranged anywhere from 1-5%. Patient verbalized understanding and have agreed to proceed with the procedure. Gerardo Morris MD Cardiac Electrophysiology [facility] documented in this encounter Procedure Notes * Gerardo Morris MD - 12/13/2024 4:33 PM EDT Images from the original note were not included. DUAL CHAMBER ICD IMPLANT PROCEDURE NOTE DATE OF PROCEDURE: 12/13/24 PERFORMING PHYSICIAN: Dr. Gerardo Morris CONSENT: Patient LOCATION: EP Lab PROCEDURE PERFORMED: 1. Implantation of dual chamber ICD (Biotronik) 2. Ultrasound guided venous access INDICATIONS: 1. Cardiomypathy PROCEDURAL SEDATION: Versed and Fentanyl. Moderate sedation was administered by the sedation nurse under my supervision and noted in the CVL log. Intraprocedural face to face sedation time: 125min. Monitoring: Cardiac telemetry, Blood pressure, continuous pulse oxymetry. FLUOROSCOPY TIME: 18min/ 125mGray. EBL: 15cc SPECIMEN REMOVED: None PROCEDURAL DETAILS: Patient was placed in trendelenberg position and ultrasound was used to evaluate the patency of left axillary vein and for venous access. Left axillary venous access was obtained using modified seldinger technique using a 5 Nigerien micro-puncture needle on two occasions and 0.35 wires were placed. Local infiltration of 1% Lidocaine was performed, and an incision was created in the left upper chest. Dissection was then performed using cautery down to the fascial plane above the muscle. The belly of the pectoralis was identified and with gentle blunt dissection a small pocketwas created for the device above the muscle. 6 Nigerien Safesheaths were placed over the wire. Since t he patient had IVCD, the decision was made to proceed with a dual-chamber ICD. The intention was toplace the ICD lead in septal location to see whether we could have left fascicular capture resulting in a narrow QRS. To accommodate this Georgette sheath was utilized. An active fixation Biotronik pacing lead was then delivered through the sheath to the right ventricle. After confirmation of lead position on orthogonal views (MATTSON and KITTITIAN) to confirm septal position, the screw was activated, and thelead was placed in the right ventricular mid cavity towards the septum. I then proceeded to advancethe lead and noted that the QRS space morphology was approximately 130 ms. The low patient was moreapical as any attempt to go superiorly resulted in the lack of support via the sheath resulting in a wider QRS. Even in the specimen there was a time when the lead got displaced and repeat attempts were performed with a final QRS morphology approximately 134 ms. After confirmation of good sensing parameters, injury pattern and pacing thresholds, 10V pacing was done and no diaphragmatic stimulation was noted. It was then secured in the pocket using three 1-0 Silk sutures. Then an active fixationBiotronik lead was delivered through the 6Fsheath to the right atrial appendage. After confirmationof lead position on orthogonal views (MATTSON and KITTITIAN), the screw was activated. Good sensing parameters , injury pattern and pacing thresholds, the lead was then tested using Lambert's maneuver. 10V pacing was done and no diaphragmatic stimulation was noted. It was then secured in the pocket using three 1-0 Silk sutures. Pocket hemostasis was secured, and it was then copiously and vigorously irrigated with antibiotic solution. The leads were attached to the generator and then wrapped under the device and the device was tacked to underlying muscle and placed in the pocket. The pocket was closed inlayers: subcutaneous layer using 2-0 Vicryl; skin using 3-0 absorbable monofilament suture. Glue was applied and Tegaderm dressing was placed on top. Lead parameters were then rechecked through the device as noted below. The patient was returned to the short stay room for post procedural observation. No immediate procedural complications were noted. Once the patient was in the observation bay EKG was performed which unfortunately revealed that theQRS morphology was wider than what was noted in the lab at approximately 160 ms. So I decided not to utilize RV pacing and left the patient at her baseline QRS morphology 134 ms. If in the future theQRS widens then I will proceed with LV lead placement. POST PROCEDURE EXAM: Patient was hemodynamically stable. COMPLICATIONS: None. IMPRESSION: 1. Successful dual chamber pacemaker with excellent pacing and sensing parameters. RECOMMENDATIONS: 1. Occlusive dressing to be removed after 2 weeks. 2. Do not wet the incision for 7 days. 3. No lifting heavy weights using arm on the same side x 3weeks 4. Do not lift elbow above the shoulder on the same side for 4-6 weeks. 5. No driving for 1 month. 6. F/u in device clinic 1 week from discharge or sooner for any concerns. Gerardo Morris MD Cardiac Electrophysiology documented in this encounter Nursing Notes * Yuridia Renee RN - 12/13/2024 4:03 PM EDT RN educated pt on d/c instructions. This included: site care, limited physical activity, resume normal diet, future appointments, medications, and moderate sedation instructions. RN educated pt on when to notify physician and when to go to the hospital. RN provided pt with arm sling and educated pt on importance of not lifting arm above 90 degrees, weight bearing more than 5lbs, and driving for the next 4 weeks. RN encouraged pt to voice any questions or concerns, and answered any questions or concerns if pt verbalized. * Yuridia Renee RN - 12/13/2024 10:44 AM EDT CHG wipes and betadine nasal swabs completed. documented in this encounter Miscellaneous Notes * Pre-Sedation Documentation - Gerardo Morris MD - 12/13/2024 9:42 AM EDT Patient: Macy Russ Procedure Information Date/Time: 12/13/24 1130 Procedure: Implant ICD - biventricular Location: [facility] VOICE NETWORK ENGINEER 1 / [facility] (Cath) Providers: Gerardo Morris MD Clinical information reviewed: Physical Exam Airway Mallampati: II TM distance: >3 FB Neck ROM: full Cardiovascular Dental Pulmonary Neurological Abdominal Anesthesia Plan ASA 3 CSE Anesthetic plan and risks discussed with patient. Use of blood products discussed with patient who. Additional Equipment Requests documented in this encounter Plan of Treatment Upcoming Encounters Date Type Department Care Team (Late st Contact Info) Description 01/18/2025 9:30 AM EDT Ancillary Procedure [facility] [address] [place] [address] 01/24/2025 11:00 AM EDT Office Visit [facility] [address] [facility] [place] [address] Rudy Zendejas MD [address] [facility] [address] [facility] [place], [place] [id number] Scheduled Orders Name Type Priority Associated Diagnoses Orde r Schedule XR chest 2 views Imaging Routine Cardiomyopathy (CMS/HCC) Expected: 12/13/2024, Expires: 12/13/2025 documented as of this encounter Procedures Procedure Name Priority Date/Time Associated Diagnosis Comments ECG 12-LEAD Routine 12/13/2024 4:20 PM EDT IMPLANT ICD - BIV Routine 12/13/2024 2:0 7 PM EDT Cardiomyopathy, unspecified type (CMS/HCC) ECG 12-LEAD Routine 12/13/2024 11:06 AM EDT documented in this encounter Results * ECG 12 lead (12/13/2024 4:20 PM EDT) Ventricular Rate 82 BPM GE MUSE Atrial Rate 82 BPM GE MUSE MA Interval 166 ms GE MUSE QRS DURATION 174 ms GE MUSE QT Interval 452 ms GE MUSE QTC CALCULATION(BAZE TT) 528 ms GE MUSE P Shaw[place] 68 degrees GE MUSE R-[place]aw[place] 159 degrees GE MUSE T Wave [place] 4 degrees GE MUSE 12/13/2024 2:46 PM EDT 12/13/2024 4:39 PM EDT Impressions GE MUSE - 12/13/2024 4:39 PM EDT Atrial-sensed ventricular-paced rhythm Abnormal ECG When compared with ECG of 13-DEC-2024 10:50, (unconfirmed) Electronic ventricular pacemaker has replaced Sinus rhythm Confirmed by Josh VEGAS SAMER J. ([id number]) on 12/13/2024 4:39:46 PM Narrative Procedure Note Yareli Vegas MD - 12/13/2024 IMPRESSION: Atrial-sensed ventricular-paced rhythm Abnormal ECG When compared with ECG of 13-DEC-2024 10:50, (unconfirmed) Electronic ventricular pacemaker has replaced Sinus rhythm Confirmed by Josh VEGAS SAMER J. (57) on 12/13/2024 4:39:46 PM Gerardo Morris MD ECG ORDERABLES Final Result GE MUSE * IMPLANT ICD - BIV (12/13/2024 2:07 PM EDT) Anatomical Region Laterality Modality Other Addenda Addendum by Gerardo Morris MD on 12/13/2024 5:12 PM EDT Images from the original result were not included. DUAL CHAMBER ICD IMPLANT PROCEDURE NOTE DATE OF PROCEDURE: 12/13/24 PERFORMING PHYSICIAN: Dr. Gerardo Morris CONSENT: Patient LOCATION: EP Lab PROCEDURE PERFORMED: 1. Implantation of dual chamber ICD (Biotronik) 2. Ultrasound guided venous access INDICATIONS: 1. Cardiomypathy PROCEDURAL SEDATION: Versed and Fentanyl. Moderate sedation was administered by the sedation nurse under my supervision and noted in the CVL log. Intraprocedural face to face sedation time: 125min. Monitoring: Cardiac telemetry, Blood pressure, continuous pulse oxymetry. FLUOROSCOPY TIME: 18min/ 125mGray. EBL: 15cc SPECIMEN REMOVED: None PROCEDURAL DETAILS: Patient was placed in trendelenberg position and ultrasound was used to evaluate the patency of left axillary vein and for venous access. Left axillary venous access was obtained using modified seldinger technique using a 5 Nigerien micro-puncture needle on two occasions and 0.35 wires were placed. Local infiltration of 1% Lidocaine was performed, and an incision was created in the left upper chest. Dissection was then performed using cautery down to the fascial plane above the muscle. The belly of the pectoralis was identified and with gentle blunt dissection a small pocket was created for the device above the muscle. 6 Nigerien Safesheaths were placed over the wire. Since the patient had IVCD, the decision was made to proceed with a dual-chamber ICD. The intention was to place the ICD lead in septal location to see whether we could have left fascicular capture resulting in a narrow QRS. To accommodate this [place] sheath was utilized. An active fixation Biotronik pacing lead was then delivered through the sheath to the right ventricle. After confirmation of lead position on orthogonal views (MATTSON and KITTITIAN) to confirm septal position, the screw was activated, and the lead was placed in the right ventricular mid cavity towards the septum. I then proceeded to advance the lead and noted that the QRS space morphology was approximately 130 ms. The low patient was more apical as any attempt to go superiorly resulted in the lack of support via the sheath resulting in a wider QRS. Even in the specimen there was a time when the lead got displaced and repeat attempts were performed with a final QRS morphology approximately 134 ms. After confirmation of good sensing parameters, injury pattern and pacing thresholds, 10V pacing was done and no diaphragmatic stimulation was noted. It was then secured in the pocket using three 1-0 Silk sutures. Then an active fixation Biotronik lead was delivered through the 6Fsheath to the right atrial appendage. After confirmation of lead position on orthogonal views (MATTSON and KITTITIAN), the screw was activated. Good sensing parameters, injury pattern and pacing thresholds, the lead was then tested using Lambert's maneuver. 10V pacing was done and no diaphragmatic stimulation was noted. It was then secured in the pocket using three 1-0 Silk sutures. Pocket hemostasis was secured, and it was then copiously and vigorously irrigated with antibiotic solution. The leads were attached to the generator and then wrapped under the device and the device was tacked to underlying muscle and placed in the pocket. The pocket was closed in layers: subcutaneous layer using 2-0 Vicryl; skin using 3-0 absorbable monofilament suture. Glue was applied and Tegaderm dressing was placed on top. Lead parameters were then rechecked through the device as noted below. The patient was returned to the short stay room for post procedural observation. No immediate procedural complications were noted. Once the patient was in the observation bay EKG was performed which unfortunately revealed that the QRS morphology was wider than what was noted in the lab at approximately 160 ms. So I decided not to utilize RV pacing and left the patient at her baseline QRS morphology 134 ms. If in the future the QRS widens then I will proceed with LV lead placement. POST PROCEDURE EXAM: Patient was hemodynamically stable. COMPLICATIONS: None. IMPRESSION: 1. Successful dual chamber pacemaker with excellent pacing and sensing parameters. RECOMMENDATIONS: 1. Occlusive dressing to be removed after 2 weeks. 2. Do not wet the incision for 7 days. 3. No lifting heavy weights using arm on the same side x 3weeks 4. Do not lift elbow above the shoulder on the same side for 4-6 weeks. 5. No driving for 1 month. 6. F/u in device clinic 1 week from discharge or sooner for any concerns. Gerardo Morris MD Cardiac Electrophysiology us Gerardo Morris MD CV ELECTROPHYSIOLOGY PROCEDURES Edited Result - Final * ECG 12 lead (12/13/2024 11:06 AM EDT) Pathologist [facility] Ventricular Rate 72 BPM GE MUSE Atrial Rate 72 BPM GE MUSE MA Interval 230 ms GE MUSE QRS DURATION 142 ms GE MUSE QT Interval 432 ms GE MUSE QTC CALCULATION(BAZE TT) 473 ms GE MUSE P [place] -1 degrees GE MUSE R-[place] 151 degrees GE MUSE T Wave [place] 12 degrees GE MUSE 12/13/2024 10:5 0 AM EDT 12/13/2024 4:33 PM EDT Impressions GE MUSE - 12/13/2024 4:33 PM EDT Sinus rhythm with 1st degree A-V block Non-specific intra-ventricular conduction block Lateral infarct (cited on or before 13-NOV-2024) Abnormal ECG When compared with ECG of 21-APR-2024 16:30, Sinus rhythm has replaced Atrial fibrillation Confirmed by Josh VEGAS SAMER J. ([id number]) on 12/13/2024 4:33:44 PM Narrative Procedure Note Yareli Vegas MD - 12/13/2024 IMPRESSION: Sinus rhythm with 1st degree A-V block Non-specific intra-ventricular conduction block Lateral infarct (cited on or before 21-APR-2024) Abnormal ECG When compared with ECG of 21-APR-2024 16:30, Sinus rhythm has replaced Atrial fibrillation Confirmed by Josh VEGAS SAMER J. ([id number]) on 12/13/2024 4:33:44 PM Gerardo Morris MD ECG ORDERABLES Final Result [employer] documented in this encounter Visit Diagnoses Diagnosis Cardiomyopathy (CMS/HCC)- Primary Other primary cardiomyopathies Cardiomyopathy, unspecified type (CMS/HCC) Cardiomyopathy, unspecified type (CMS/HCC) documented in this encounter Admitting Diagnoses Diagnosis Cardiomyopathy (CMS/HCC) Other primary cardiomyopathies documented in this encounter Active and Recently Administered Medications Times are shown in EDT. Scheduled Medication Order 12/11/2024 12/12/2024 12/13/2024 ceFAZolin (Ancef) 1,000 mg, gentamicin (Garamycin) 80 mg in sodium chloride irrigation solution 0.9 % 500 mL IRRIGATION (COMPLETED) irrigation, Once, On Fri12/13/24 at 1130, For 1 dose, Intraprocedure, Indication: Surgical Prophylaxis 1130 (Due)1357 (Give n - Provider: Gerardo Morris MD) ceFAZolin in dextrose (iso-os) (Ancef) IVPB 2 g (COMPLETED) 2 g, intravenous, at 100 mL/hr, Administer over 30 Minutes, Once, On Fri12/13/24 at 1045, For 1 dose, Preprocedure, Administer within 60 minutes of incision. Duplex bag - activate before hanging., Suspected Indication (Select all that apply): Surgical Prophylaxis 1045 (Due)1201 (New Bag - Provider: Claudia Joe, RN) PRN Medication Order 12/11/2024 12/12/2024 12/13/2024 fentaNYL (Sublimaze) injection (CANCELED) As needed, Starting on Fri12/13/24 at 1202, Intraprocedure 1202 (Given - Provid er: Claudia Diaz RN)1214 (Given - Provider: Latrice Bonilla RN)1224 (Given - Provider: Edwige Hurd RN)1329 (Given - Provider: Latrice Bonilla RN)1354 (Given - Provider: Latrice Bonilla RN)1359 (Given - Provider: Latrice Bonilla RN) lidocaine (PF) (Xylocaine) 10 mg/mL (1 %) injection (CANCELED) As needed, Starting on Fri12/13/24 at 1214, Intraprocedure 1214 (Given - Provid er: Gerardo Morris MD)1225 (Given - Provider: Gerardo Morris MD) midazolam (Versed) injection (CANCELED) As needed, Starting on Fri12/13/24 at 1202, Intraprocedure 1202 (Given - Provid er: Claudia Diaz RN)1214 (Given - Provider: Latrice Bonilla RN)1227 (Given - Provider: Latrice Bonilla RN)1257 (Given - Provider: Edwige Hurd RN)1343 (Given - Provider: Latrice Bonilla RN)1356 (Given - Provider: Latrice Bonilla RN)1403 (Given - Provider: Latrice Bonilla RN) sodium chloride 0.9 % infusion (COMPLETED) Continuous PRN, Starting on Fri12/13/24 at 1201, Intraprocedure 1201 (New Bag - Prov ider: Claudia Diaz RN) documented in this encounter Care Teams Senior Label Specialist Relationship Specialty Start Date End Date Vlad Cesar MD [address] [facility] [address] [place] [address] PCP - General 08/19/22 documented as of this encounter
--- OUTSIDE RECORDS SUMMARY | 2024-12-13 11:30 | XMS_ITS | Encounter Summary ---
Author Organization [facility] Address [address] [address] Care Team Providers Care Technical Sales Specialist Name Role Phone Vlad Cesar MD Primary Care Provider [phone] Reason for Visit * Auth/Cert (Routine) Specialty Diagnoses / Procedures Referred By Contac t Referred To Contact Diagnoses Cardiomyopathy, unspecified type (CMS/HCC) Cardiomyopathy, unspecified type (CMS/HCC) [I42.9] Procedures Implant ICD - biventricular Gerardo Morris MD [address] [place] [phone] Phone: tel: fax: [facility] [address] [place] [phone] Phone: tel: fax: Referral ID Status Reason Start Date Expiration Date Visits Re quested Visits Authorized [id number] 1 1 Encounter Details Date Type Department Care Team (Late st Contact Info) Description 12/13/2024 11:30 AM EDT - 12/13/2024 2:30 PM EDT Surgery [facility] [address] [place] [phone] Gerardo Morris MD [address] [place] [phone] Implant ICD - biventricular Social History Tobacco Use Types Packs/Day Years Used Date Smoking Tobacco: Never Smokeless Tobacco: Never Alcohol Use Standard Drinks/Week Comments Not Currently 0 (1 standard drink = 0.6 oz pur e alcohol) [facility] Utilities Answer Date Recorded In the past [...] any time in the past 12 m [facility], were you homeless or living in a penitentiary (including now)? No 04/21/2024 Hunger Vital Sign [...] * Moderate Conscious Sedation Adult Care After (Ukrainian) * Cardioverter Defibrillator Implantation Care After (Ukrainian) documented in this encounter Medications at Time [...] 5 mgIndications:NSTEM I (non-ST elevated myocardial infarction) (CMS/HCC) Take 1 tablet (5 mg) by [...] tabletIndications:A cute systolic heart failure (CMS/HCC),CAD in [place] artery Take 0.5 tablets (12.5 mg) by [...] from the original note were not included. [place] Electrophysiology Consult Note [place] Cardiology [facility] Reason for visit: Ischemic cardiomyopathy [...] Date Abnormal ECG CHF (congestive heart failure) ([facility] Coronary artery disease Diabetes mellitus ([facility]) Gout Hypertension Myocardial infarction ([facility]) Sleep apnea PSH: Past Surgical History: Procedure Laterality Date BACK SURGERY CARDIAC CATHETERIZATION CARPAL TUNNEL RELEASE HYSTERECTOMY THYROID SURGERY SH: Social Drivers of Health Tobacco Use: Low Risk (11/09/2024) Patient History Smoking Tobacco Use: Never Smokeless Tobacco Use: Never Passive Exposure: Not on file Alcohol Use: Not At Risk (02/23/2024) Received from [facility] [employer] AUDIT[employer]C Frequency of Alcohol Consumption: Never Average [...] file Physical Activity: Inactive (02/23/2024) Received from [facility] [employer] Exercise Vital Sign Days of Exercise per Week: 0 days Minutes of Exercise per Session: 0 min Stress: No Stress Concern Present (02/23/2024) Received from [facility] [place] of Occupational Health - Occupational Stress Questionnaire Feeling of Stress : Not at all Social Connections: Moderately Isolated (02/23/2024) Received from [facility] Social Connection and Isolation Panel [NHANES] Frequency of Communication with Friends and Family: More than three times a week Frequency of Social Gatherings with Friends and Family: Once a week Attends Congregation Services: Never Active Member of Clubs or Organizations: Yes Attends Club or Organization Meetings: 1 to 4 times per year Marital Status: Never Intimate Partner Violence: Unknown (04/21/2024) Humiliation, Afraid, Rape, and Kick questionnaire Fear of Current or Ex-Partner: No Emotionally Abused: Not on file Physically Abused: Not on file Sexually Abused: Not on file Depression: Not at risk (10/13/2024) Received from [facility] PHQ-2 Patient Health Questionnaire-2 Score: 0 Housing Stability: Low Risk (04/21/2024) Housing Stability Vital Sign Unable to Pay for Housing in the Last Year: No Number of Times Moved in the Last Year: Not on file Homeless in the Last Year: No Utilities: Not At Risk (04/21/2024) [facility] Utilities Threatened with loss of utilities: No Health Literacy: Adequate Health Literacy (02/23/2024) Received from [facility] B1300 Health Literacy Frequency of need for [...] the procedure. Gerardo Morris MD Cardiac Electrophysiology [facility] documented in this encounter Procedure Notes * [...] using modified seldinger technique using a 5 Lithuanian micro-puncture needle on two occasions and 0.35 [...] for the device above the muscle. 6 [place]ian Safesheaths were placed over the wire. Since [...] lead position on orthogonal views (MATTSON and BELGIAN) to confirm septal position, the screw was [...] lead position on orthogonal views (MATTSON and [place]GI[place]), the screw was activated. Good sensing parameters [...] 1130 Procedure: Implant ICD - biventricular [facility] MUFFLER FITTER 1 / [facility] (Cath) Providers: Gerardo Morris MD [...] Description 01/18/2025 9:30 AM EDT Ancillary Procedure [facility] [address] [place] [address] 01/24/2025 11:00 AM EDT Office Visit [facility] [address] [place] [address] Rudy Zendejas MD [address] [facility] [address] [facility] [place] [address] Scheduled Orders Name Type Priority Associated Diagnoses [...] MUSE Atrial Rate 82 BPM GE MUSE IN Interval 166 ms GE MUSE QRS DURATION 174 ms GE MUSE QT Interval 452 ms GE MUSE QTC CALCULATION(BAZE TT) 528 ms GE MUSE P [place] 68 degrees GE MUSE R-[place] 159 degrees GE MUSE T Wave [place] 4 degrees GE MUSE 12/13/2024 2:46 PM EDT 12/13/2024 4:39 PM EDT Impressions GE MUSE - 12/13/2024 4:39 PM EDT Atrial-sensed ventricular-paced rhythm Abnormal ECG When compared with ECG of 13-DEC-2024 10:50, (unconfirmed) Electronic ventricular pacemaker has replaced Sinus rhythm Confirmed by Josh ROUSE, YARELI Velazquez (57) on 12/13/2024 4:39:46 PM Narrative Procedure [...] using modified seldinger technique using a 5 Lithuanian micro-puncture needle on two occasions and 0.35 [...] for the device above the muscle. 6 [place] Safesheaths were placed over the wire. Since the patient had IVCD, the decision was made to proceed with a dual-chamber ICD. The intention was to place the ICD lead in septal location to see whether we could have left fascicular capture resulting in a narrow QRS. To accommodate this [place] sheath was utilized. An active fixation Biotronik pacing lead was then delivered through the sheath to the right ventricle. After confirmation of lead position on orthogonal views (MATTSON and BELGIAN) to confirm septal position, the screw was [...] lead position on orthogonal views (MATTSON and BELGIAN), the screw was activated. Good sensing parameters, [...] MUSE Atrial Rate 72 BPM GE MUSE IN Interval 230 ms GE MUSE QRS DURATION 142 ms GE MUSE QT Interval 432 ms GE MUSE QTC CALCULATION(BAZE TT) 473 ms GE MUSE P [place] -1 degrees GE MUSE R-[place] 151 degrees GE MUSE T Wave [place] 12 degrees GE MUSE 12/13/2024 10:5 0 [...] SAMER J. (57) on 12/13/2024 4:33:44 PM us Gerardo [...] % 500 mL IRRIGATION irrigation, Once, On Fri12/13/24 at 1130, For [...] Bonilla RN)1224 (Given - Provider: Edwige Hurd, KENDALL)1329 (Given - Provider: Latrice Bonilla, RN)1354 (Given - Provider: Latrice Bonilla RN)1359 [...] RN) documented in this encounter Care Teams Technical Sales Specialist Relationship Specialty Start Date End Date Vlad Cesar MD [address] [facility] [address] [place] [address] PCP - General 08/19/22 documented as of this encounter
--- OUTSIDE RECORDS SUMMARY | 2024-12-20 14:40 | XMS_ITS | Encounter Summary ---
Author Organization [facility] Address [address] [place] [address] Care Team Providers Care Certified Medical Dosimetrist Name Role Phone Vlad Cesar MD Primary Care Provider [phone] Encounter Details Date Type Department Care Team (Late st Contact Info) Description 12/20/2024 2:40 PM EDT Office Visit [facility] Heart at [facility] [address] [place] [address] Dennis Gilmore, P[employer]Y ROLL FINISHER [address] [place] [address] S/P placement of cardiac pacemaker (Primary Dx); Bilateral lower extremity edema; Chronic systolic heart failure (CMS/HCC); Coronary artery disease involving lime coronary artery of lime heart with other form of angina pectoris; Paroxysmal atrial fibrillation (CMS/HCC); Heart disease, hypertensive, with heart failure (CMS/HCC); Mixed hyperlipidemia Social History Tobacco Use Types Packs/Day Years Used Date Smoking Tobacco: Never Smokeless Tobacco: Never Alcohol Use Standard Drinks/Week Comments Not Currently 0 (1 standard drink = 0.6 oz pur e alcohol) [facility] Utilities Answer Date Recorded In the past 12 months has e [employer], gas, oil, or water [employer] threatened to shut off services in your [...] any time in the past 12 [facility], were you homeless or living in a long term (including now)? No 04/21/2024 Hunger Vital Sign [...] Sign Reading Time Taken Comments Blood Pressure 108/63 12/20/2024 2:47 PM EDT Pulse 70 12/20/2024 2:47 PM EDT Temperature - - Respiratory Rate - - Oxygen Saturation 98% 12/20/2024 2:47 PM EDT Inhaled Oxygen Concentration - - Weight 92.5 kg (204 lb) 12/20/2024 2:47 PM EDT Height 157.5 cm (5' 2 ) 12/20/2024 2:47 PM EDT Body Mass Index 37.31 12/20/2024 2:47 PM EDT documented in this encounter Progress Notes * Dennis Gilmore CNP - 12/20/2024 2:40 PM EDT Images from the original note were not included. SUBJECTIVE Reason for Visit: Macy Russ is a 74 y.o. year old female patient being seen for wound check, status post ICD. HPI: Macy Russ is a 74 y.o. year old female with significant medical history of multivessel CAD s/p PCI in 2013 after she was deemed a poor candidate for bypass surgery, systolic heart failure with a follow-up cardiac cath on 09/09/2023 revealing high-grade calcific stenosis in LAD ostium and RCA stenosis with subsequent PCI performed on 10/08/2023 with Impella assist. This resulted in improvementof EF to 40 to 45% based on [...] 30%. Following being on guideline directed medical therapyrepeat echocardiogram done in October 20, 2024 still shows EF of 30 to 35% . 12/20/2024 office visit: Patient seen and evaluated in the office today for wound check, status post pacemaker implant. Wound site is intact, no evidence of hematoma, or oozing. Denies pain or tenderness from the site. Otherwise, she denies chest pain, shortness of breath, palpitations, lightheadedness or dizziness. She endorses worsening lower extremity edema over the last 6 to 8 weeks. +3-4 pitting edema on exam.She mentions she just got back from the wound clinic where she is being treated for diabetic heel ulcer. Medical History[1] Surgical History[2] Problem List[3] family history includes JABARI disease in her mother; Heart attack in her father. Social History[4] OBJECTIVE Visit Vitals OB Status Postmenopausal Smoking Status Never Physical Exam Constitutional: General Appearance: well-developed, appears stated age. Level of Distress: no acute distress. Neck: Jugular Veins: normal jugular venous pressure. Lungs: Auscultation: no rales or rhonchi and normal breath sounds. Cardiovascular: Rate And Rhythm: regular Heart Sounds: normal S1 and s2; Systolic Murmur: not heard. Diastolic Murmur: not heard. Extremities: +3-4 pitting edema Peripheral Pulses: Pulses: full and equal in all extremities except if noted. Abdomen: Inspection and Palpation: non distended or tender and soft. Musculoskeletal: Inspection: no joint tenderness or swelling. Neurologic: Gait: normal gait. Psychiatric: Mental Status: alert and normal affect. Skin: Inspection and Palpation: warm and dry. Left heel ulcer wound. Allergies: Allergies[5] Outpatient Medications: Current Outpatient Medications Medication Instructions allopurinol (ZYLOPRIM) 300 mg, Daily apixaban (ELIQUIS) 5 mg, oral, 2 times daily atorvastatin (LIPITOR) 80 mg, Nightly baclofen (LIORESAL) 10 mg, Nightly dapagliflozin propanediol (FARXIGA) 5 mg, oral, Daily doxycycline (MONODOX) 100 mg, oral, 2 times daily, Take with at least 8 ounces (large glass) of water, do not lie down for 30 minutes after ezetimibe (ZETIA) 10 mg, Every morning insulin glargine-yfgn 100 unit/mL solution Inject under the skin. insulin lispro (HUMALOG) 5 Units, 3 times daily with meals meloxicam (MOBIC) 15 mg, Daily metoprolol succinate XL (TOPROL-XL) 12.5 mg, Daily nitroglycerin (Nitrostat) 0.3 mg SL tablet nitroglycerin 0.3 mg sublingual tablet omeprazole (PRILOSEC) 20 mg, Daily before breakfast potassium chloride CR (K-Tab) 20 mEq ER tablet 20 mEq, Daily pregabalin (LYRICA) 25 mg, 2 times daily sacubitril-valsartan (Entresto) 24-26 mg tablet 0.5 tablets, oral, 2 times daily spironolactone (ALDACTONE) 12.5 mg, oral, Once Daily ticagrelor (BRILINTA) 90 mg, oral, 2 times daily torsemide (DEMADEX) 10 mg, Daily Toujeo Max U-300 SoloStar 100 Units, Daily Recent Labs: Admission on 12/13/2024, Discharged on 12/13/2024 Component Date Value Ventricular Rate 12/13/2024 72 Atrial Rate 12/13/2024 72 NJ Interval 12/13/2024 230 QRS DURATION 12/13/2024 142 QT Interval 12/13/2024 432 QTC CALCULATION(BAZETT) 12/13/2024 473 P Eastman 12/13/2024 -1 R-Eastman 12/13/2024 151 T Wave Eastman 12/13/2024 12 Ventricular Rate 12/13/2024 82 Atrial Rate 12/13/2024 82 NJ Interval 12/13/2024 166 QRS DURATION 12/13/2024 174 QT Interval 12/13/2024 452 QTC CALCULATION(BAZETT) 12/13/2024 528 P Eastman 12/13/2024 68 R-Eastman 12/13/2024 159 T Wave Eastman 12/13/2024 4 I have personally reviewed and anaylzed the following laboratory results above. These findings havebeen analyzed in the context of the patient's clinical presentation. Cardiovascular Diagnostic Studies: 07/07/2024 coronary angiogram ([facility]): PROCEDURE PHYSICIAN: Bhargav Wagner MD 04/19/2024 Clinical Presentation: 73 y.o. Female with history of CAD s/p multivessel PCI 10/2023 (complex PCI LAD and RCA), morbid obesity, HFrEF, and diabetes. She is admitted with chest pain and diagnosed with NSTEMI. Troponin peaked at 17 this morning. She is brought urgently to the cardiac cathead worker for high risk NSTEMI. Final Impression: 1) [...] for treatment of diabetes and reduction of [place] and CVA risk 6) referral to cardiac rehab 7) close outpatient follow up with [facility] 8) check Lp(a) and HbA1c and [id number] genotype (I placed orders for these tests) [...] infiltrated over the left radial artery. A 6-Barbadian Terumo Glidesheath slender wasplaced in left radial artery. Radial anti-vasospasm cocktail of verapamil 2.5 mg and nitroglycerin 200 mcg was administered through the sheath. All catheter exchanges were made over the Ramon guidewire. Coronary angiogram was performed with a 6 Barbadian Prot-Ontronic EBU 3.5 guide to engage the left main and a JR4 guide to engage the RCA. Coronary angiogram was performed in multiple orthogonal views. At this time, it was apparent that the LAD had severe stenosis with 90% ISR in the mid LAD. I decided toproceed with angioplasty. Heparin anticoagulation was used for this procedure. ACT was maintained at >250 seconds. I then advanced a Runthrough wire to the distal left anterior descending. Next, I proceeded with dilatation with a ScoreFlex 3.0 x 10 mm scoring balloon at 20- 22 kan with a good result. The apical LAD had diffuse stenosis as well. I used an Emerge 2.0 x 15 mm balloon at 6 kan with limited benefit and then decided not [...] are small caliber vessels with diffuse disease. DUAL CHAMBER ICD IMPLANT PROCEDURE NOTE 12/13/2024 DATE OF PROCEDURE: 12/13/24 PERFORMING PHYSICIAN: Dr. [...] using modified seldinger technique using a 5 Barbadian micro-puncture needle on two occasions and 0.35 [...] for the device above the muscle. 6 Barbadian Safesheaths were placed over the wire. Since t he patient had IVCD, the decision was made to proceed with a dual-chamber ICD. The intention was toplace the ICD lead in septal location to see whether we could have left fascicular capture resulting in a narrow QRS. To accommodate this [place] sheath was utilized. An active fixation Biotronik pacing lead was then delivered through the sheath to the right ventricle. After confirmation of lead position on orthogonal views (MATTSON and NEW ZEALANDER) to confirm septal position, the screw was [...] lead position on orthogonal views (MATTSON and NEW ZEALANDER), the screw was activated. Good sensing parameters [...] any concerns. Gerardo Morris MD Cardiac Electrophysiology TTE 10/20/2024: Conclusion: 1. Left ventricle is mildly dilated with moderately reduced systolic function. Estimated LVEF is 30to 35%. 2. Mildly dilated right ventricle with reduced systolic function. 3. No significant valvular dysfunction. 4. Moderately elevated right-sided pressures. RVSP is 54 mmHg 12 Lead ECG: Encounter Date: 12/13/24 ECG 12 lead Result Value Ventricular Rate 82 Atrial Rate 82 NJ Interval 166 QRS DURATION 174 QT Interval 452 QTC CALCULATION(BAZETT) 528 P Eastman 68 R-Eastman 159 T Wave Eastman 4 Impression Atrial-sensed ventricular-paced rhythm Abnormal ECG When compared with ECG of 13-DEC-2024 10:50, (unconfirmed) Electronic ventricular pacemaker has replaced Sinus rhythm Confirmed by Josh ROUSE, CARYN Velazquez ([id number]) on 12/13/2024 4:39:46 PM Cardiac device check: I have personally reviewed and analyzed all available cardiac diagnostic tests and imaging reports.Findings have been analyzed in the context of the patient's clinical status. Assessment and Plan #HFrEF #S/p dual-chamber pacemaker S/p dual-chamber pacemaker for cardiomyopathy on 12/13/[address] Morris NYHA II +3-4 pitting lower extremity edema Most recent TTE 10/20/2024: EF 30 to 35% Wound site intact, no evidence of hematoma, infection GDMT: - Continue spironolactone 25 mg daily - Continue Entresto 24-26 mg twice daily - Continue metoprolol succinate 25 mg daily - Continue Farxiga 5 mg daily #Bilateral lower extremity edema +3-4 pitting lower extremity edema Denies SORENSEN Patient reports swelling has worsened over the last 6-8 weeks approximately She has a diabetic heel ulcer and is being treated by the wound clinic for which she just came fromprior to her visit today Patient reluctant to get labs done today, reluctant to increase her diuretic regimen - Will order BMP and BNP - Continue torsemide 30 mg daily #CAD Multivessel CAD s/p PCI in 2013 after she was deemed a poor candidate for bypass surgery Most recent left heart cath 04/19/2024: 90% in-stent restenosis treated with balloon angioplasty, 70% stenosis apical LAD treated with balloon angioplasty Recent acute STEMI on 07/07/2024 ([facility]) treated with emergency stenting of mid LAD severe in-stent restenosis. GDMT: - Continue ezetimibe 10 mg daily - Continue atorvastatin 80 mg daily - Continue metoprolol succinate 25 mg daily #Paroxysmal A-fib [id number] = at least 4 (age, female, heart failure, [place]) Blood pressure 108/63, heart rate 70 - Continue apixaban 5 mg twice daily - Continue metoprolol succinate 25 mg daily #Hyperlipidemia Most recent lipid panel reviewed 04/19/2024: LDL 41, HDL 50, triglycerides 79, total cholesterol. Stable - Continue ezetimibe 10 mg daily - Continue atorvastatin 80 mg daily Plan Overview: Labs today: BMP, BNP Follow-up with Dr. Zendejas No follow-ups on file. Dennis Gilmore, [facility] Cardiovascular Medicine [1] Past Medical History: Diagnosis Date Abnormal ECG CHF (congestive heart failure) (CMS/HCC) Coronary artery disease Diabetes mellitus (CMS/HCC) Gout Hypertension Myocardial infarction (CMS/HCC) Sleep apnea [2] Past Surgical History: Procedure Laterality Date BACK SURGERY CARDIAC CATHETERIZATION CARPAL TUNNEL RELEASE HYSTERECTOMY THYROID SURGERY [3] Patient Active Problem List Diagnosis Allergic rhinitis Angiomyolipoma of kidney Benign essential hypertension Cerebrovascular disease Chronic foot ulcer (CMS/HCC) Coronary atherosclerosis Decreased estrogen level Diabetic retinopathy associated with type 2 diabetes mellitus (CMS/HCC) Diaphragmatic hernia Difficulty walking Dyspnea on exertion Generalized osteoarthritis Gout History of arthritis History of hysterectomy Hyperglycemia due to type 2 diabetes mellitus (CMS/HCC) 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/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) Low back [...] acid nephrolithiasis NSTEMI (non-ST elevated myocardial infarction) ([facility]) Acute exacerbation of CHF (congestive heart failure) ([facility]) COVID-19 Acquired spondylolisthesis Acute on chronic diastolic heart failure ([facility]) Coronary artery disease (CAD) excluded Diastolic dysfunction GERD (gastroesophageal reflux disease) History of carpal tunnel surgery of right wrist Hyperlipidemia Impaired mobility and endurance Localized edema Lumbar radiculopathy Morbid obesity with body mass index (BMI) of 45.0 to 49.9 in adult ([facility]) Paresthesia of skin Primary osteoarthritis of both knees S/P drug eluting coronary stent placement Ulcer of foot due to type 2 diabetes mellitus ([facility]) Pericardial effusion CAD in lime artery Coronary artery disease Coronary artery disease involving lime coronary artery of lime heart with other form of angina pectoris Chronic systolic heart failure ([facility]) Combined forms of age-related cataract of both eyes History of lumbar fusion Nonexudative age-related macular degeneration Thyroid disease Angina pectoris Lumbar stenosis with neurogenic claudication Acquired absence of both cervix and uterus Acute cystitis without hematuria Carpal tunnel syndrome, left upper limb Cervicalgia Chronic kidney disease, stage 3a ([facility]) Cognitive communication deficit Dysphagia, oral phase History of DVT in adulthood Impaired skin integrity Mild mitral regurgitation Muscle weakness (generalized) Other chronic pain Pain in left knee Type 2 diabetes mellitus with diabetic chronic kidney disease ([facility]) Unspecified systolic (congestive) heart failure ([facility]) Cardiomyopathy ([facility]) [4] Social History Tobacco Use Smoking status: Never Smokeless tobacco: Never Substance Use Topics Alcohol use: Not Currently Drug use: Never [5] Allergies Allergen Reactions Gabapentin Palpitations Other reaction(s): Chest Pain Tramadol Other Other reaction(s): sleeplessness documented in this encounter Plan of Treatment Upcoming Encounters Date Type Department Care Team (Late st Contact Info) Description 01/18/2025 9:30 AM EDT Ancillary Procedure [address] [address] 01/24/2025 11:00 AM EDT Office Visit [address] [place] [id number] Rudy Zendejas MD [address] [facility] [address] [facility] [place] [address] Scheduled Orders Name Type Priority Associated Diagnoses Orde r Schedule Basic metabolic panel Lab Routine Chronic systolic heart failure (CMS/HCC) Expected: 12/20/2024 (Approximate), Expires: 12/20/2025 B-type natriuretic peptide Lab Routine Chronic systolic heart failure (CMS/HCC) Expected: 12/20/2024 (Approximate), Expires: 12/20/2025 documented as of this encounter Visit Diagnoses Diagnosis S/P placement of cardiac pacemaker- Primary Bilateral lower extremity edema Chronic systolic heart failure (CMS/HCC) Chronic systolic heart failure Coronary artery disease involving lime coronary artery of lime heart with other form of angina pectoris Paroxysmal atrial fibrillation (CMS/HCC) Atrial fibrillation Heart disease, hypertensive, with heart failure (CMS/HCC) Unspecified hypertensive heart disease with heart failure Mixed hyperlipidemia documented in this encounter Care Teams Certified Medical Dosimetrist Relationship Specialty Start Date End Date Vlad Cesar MD [address] [facility] [address] [place] [address] PCP - General 08/19/22 documented as of this encounter
--- OUTSIDE RECORDS SUMMARY | 2024-12-20 15:26 | XMS_ITS | Encounter Summary ---
Author Organization [facility] Address [address] [place] [address] Care Team Providers Care Ammonia Refrigeration Technician Name Role Phone Vlad Cesar MD Primary Care Provider Vlad Cesar MD Unavailable [phone] Friday, Marce DOLL Unavailable [phone] Encounter Details Date Type Department Care Team (Late st Contact Info) Description 03/06/2023 Abstract [facility] [address] [facility] [address] [place] [address] Vlad Cesar MD 112 [facility] [address] [place] [address] Social History Tobacco Use Types Packs/Day Years Used Date Smoking Tobacco: Never Smokeless Tobacco: Never Alcohol Use Standard Drinks/Week Comments Never 0 (1 standard drink = 0.6 oz pur e alcohol) Caffeine: 1-2 cups per day Humiliation, Afraid, Rape, and Kick questionnair e [...] neighbors? More than three times a week 01/12/2023 How often do you get togethe r with friends or relatives? Once a week 01/12/2023 How often do you attend chur ch or muslim services? Never 01/12/2023 Do you belong to any clubs o r organizations such as confucianist groups, unions, fraternal or athletic groups, or school groups? No 01/12/2023 How often do you attend meet ings of the clubs or organizations you belong to? Never 01/12/2023 Are you , , di vorced, , never , or living with a partner? Living with partner 01/12/2023 AUDIT-C Answer Date Recorded Q1: How often do you have a drink containing alcohol? Never 01/12/2023 Q2: How many drinks containi ng alcohol do you have on a typical day when you are drinking? Patient does not drink Q3: How often do you have si x or more drinks on one occasion? Never 01/12/2023 Overall Financial Resource Strain (CARDIA) Answe r Date Recorded How hard is it for you to pa y for the very basics like food, housing, medical care, and heating? Not hard at all 01/12/2023 [facility] - Occupational Stress Questionnaire Answer Date Recorded Do you feel stress - tense, restless, nervous, or anxious, or unable to sleep at night because your mind is troubled all the time - these days? Not at all 01/12/2023 Exercise Vital Sign Answer Date Recorde d On average, how many days pe r week do you engage in moderate to strenuous exercise (like a brisk walk)? 0 days 01/12/2023 On average, how many minutes do you engage in exercise at this level? 0 min 01/12/2023 Hunger Vital Sign Answer Date Recorded Within the past 12 months, y ou worried that your food would run out before you got the money to buy more. Never true 01/13/20 23 Within the past 12 months, t he food you bought just didn't last and you didn't have money to get more. Never true 01/12/2023 PRAPARE - Transportation Answer Date Re corded In the past 12 months, has l ack of transportation kept you from medical appointments or from getting medications? No 11/2022 In the past 12 months, has l ack of transportation kept you from meetings, work, or from getting things needed for daily living? No 01/12/2023 Housing Stability Vital Sign Answer [...] place to sleep or slept in a long term (including now)? No 01/12/2023 Comments Unknown Sex and Gender Information Value Date Recorded Sex Assigned at Not on file Legal Sex Female 6:47 PM EDT Gender Identity Not on file Sexual Orientation Not on file documented as of this encounter Plan of Treatment Upcoming Encounters Date Type Department Care Team (Late st Contact Info) Description 12/23/2024 9:15 AM EDT Office Visit [facility] [address] [facility] [address] [place] [address] Vlad Cesar MD [address] [facility] [address] [place] [address] 03/07/2025 11:50 AM EDT Office Visit [facility] [address] [place] [phone] Narinder Rubi DPM [address] [facility] [address] [place] [address] documented as of this encounter Visit Diagnoses Not on filedocumented in this encounter Care Teams Ammonia Refrigeration Technician Relationship Specialty Start Date End Date Vlad Cesar MD [address] [facility] 110 [place] [address] PCP - General Internal Medicine 10/21/22 Vlad Cesar MD [address] [place], [place] [id number] PCP - ACO Reach 10/31/22Friday, SHARMILA Zheng [address] [place], [place] [phone] Licensed Practical Nurse Family Medicine 09/04/23 09/08/23 documented as of this encounter
--- OUTSIDE RECORDS SUMMARY | 2024-12-20 15:26 | XMS_ITS | Encounter Summary ---
Author Organization [facility] Address [address] [facility] [place] [place] [address] Care Team Providers Care Hot Top Liner Helper Name Role Phone Vlad Cesar MD Primary Care Provider [phone] Vlad Cesar MD Unavailable [phone] Friday, Marce DOLL Unavailable [phone] Encounter Details Date Type Department Care Team (Late Contact Info) Description 12/20/2022 Abstract [facility] [address] [facility] 100 [place] [address] Theodore Cisse DPM [address] [facility] 100 [place] [address] Social History Tobacco Use Types Packs/Day Years Used Date Smoking Tobacco: Never Smokeless Tobacco: Never Tobacco Cessation:Counseling Given: Not Answered Alcohol Use Standard Drinks/Week Comments Never 0 (1 standard drink = 0.6 oz pur e alcohol) Caffeine: 1-2 cups per day Comments Unknown Sex and Gender Information Value Date Recorded Sex Assigned at Not on file Legal Sex Female 6:47 PM EDT Gender Identity Not on file Sexual Orientation Not on file COVID-19 Exposure Response Date Recorded In the last 10 days, have yo u been in contact with someone who was confirmed or suspected to have Coronavirus/COVID-19? No / Unsure 12/13/2022 10:48 AM EDT documented as of this encounter Plan of Treatment Upcoming Encounters Date Type Department Care Team (Late Contact Info) Description 12/23/2024 9:15 AM EDT Office Visit [facility] [address] [place] [address] Vlad Cesar MD [address] [place] [address] 03/07/2025 11:50 AM EDT Office Visit [facility] [address] [place] [phone] Narinder Rubi, DPM [address] [facility] 5 [place] [address] documented as of this encounter Visit Diagnoses Not on filedocumented in this encounter Care Teams Hot Top Liner Helper Relationship Specialty Start Date End Date Vlad Cesar MD [address] [place] [address] PCP - General Internal Medicine 10/21/22 Vlad Cesar MD [address] [place] [address] PCP - ACO Reach 10/31/22Friday, SHARMILA Zheng [address] [place] [address] Licensed Practical Nurse Family Medicine 09/04/23 09/08/23 documented as of this encounter
--- OUTSIDE RECORDS SUMMARY | 2024-12-20 15:26 | XMS_ITS | Encounter Summary ---
Author Organization [facility] Address [address] [place] [address] Care Team Providers Care Tetryl Dissolver Operator Name Role Phone Vlad Cesar MD Primary Care Provider [phone] Vlad Cesar MD Unavailable [phone] Encounter Details Date Type Department Care Team (Late st Contact Info) Description 07/27/2024 Abstract [facility] 112 [facility] 110 [place] [address] Vlad Cesar MD [address] [facility] 110 [place], [place] [address] Social History Tobacco Use Types Packs/Day Years [...] 02/23/2024 How often do you attend chur or yarsani services? Never 02/23/2024 Do you belong to any clubs o r organizations such as restorationism groups, unions, fraternal or athletic groups, or [...] Date Recorded Patient Health Questionnaire-2 Score 0 06/25/2023 [facility] Occupat ional Health - Occupational [...] place to sleep or slept in a half-way (including now)? No 01/12/2023 Housing Stability Vital Sign Answer Chad e Recorded In the last 12 months, was t here a time when you were not able to pay the mortgage or rent on time? No 02/23/2024 Number of Times Moved in the Last Year Not on fi le 02/23/2024 At any time in the past 12 m [facility], were you homeless or living in a half-way (including now)? No 02/23/2024 Comments Unknown Sex and Gender Information Value Date Recorded Sex Assigned at Not on file Legal Sex Female 6:47 PM EDT Gender Identity Not on file Sexual Orientation Not on file documented as of this encounter Plan of Treatment Upcoming Encounters Date Type Department Care Team (Late st Contact Info) Description 12/23/2024 9:15 AM EDT Office Visit [facility] 112 [facility] 110 [place] [address] Vlad Cesar MD [address] [facility] 110 [place] [address] 03/07/2025 11:50 AM EDT Office Visit [facility] [address] [place] [address] Narinder Rubi DPM [facility] 5 [place] [address] documented as of this encounter Visit Diagnoses Not on filedocumented in this encounter Care Teams Tetryl Dissolver Operator Relationship Specialty Start Date End Date Vlad Cesar MD 112 [facility] 110 [place] [address] PCP - General Internal Medicine 10/21/22 Vlad Cesar MD 112 [facility] 110 [place] [address] PCP - ACO Reach 10/31/22 documented as of this encounter
--- OUTSIDE RECORDS SUMMARY | 2024-12-20 15:26 | XMS_ITS | Encounter Summary ---
Author Organization [facility] Address [address] [place] [address] Care Team Providers Care Auditor Appraiser Name Role Phone Vlad Cesar MD Primary Care Provider [phone] Vlad Cesar MD Unavailable [phone] Friday, Marce DOLL Unavailable [phone] Encounter Details Date Type Department Care Team (Late st Contact Info) Description 05/14/2023 Orders Only [facility] [address] [place] 110 [place] [address] A, Unknown Practice [address] [id number] Social History Tobacco Use Types Packs/Day Years [...] often do you attend chur ch or caodaism services? Never 01/12/2023 Do you belong to any clubs o r organizations such as zoroastrian groups, unions, fraternal or athletic groups, or [...] and heating? Not hard at all 01/12/2023 [facility] Occupat ional Health - Occupational Stress [...] place to sleep or slept in a fdc (including now)? No 01/12/2023 Comments Unknown Sex [...] suspected to have Coronavirus/COVID-19? No / Unsure 04/17/2023 10:54 PM EST documented as of this encounter Plan of Treatment Upcoming Encounters Date Type Department Care Team (Late st Contact Info) Description 12/23/2024 9:15 AM EDT Office Visit [facility] 112 [facility] 110 [place] [address] Vlad Cesar MD 112 [facility] 110 [place] [address] 03/07/2025 11:50 AM EDT Office Visit [facility] [address] [place] [address] Narinder Rubi DPM 3006 [facility] 5 [place] [address] documented as of this encounter Procedures Procedure Name Priority Date/Time Associated Diagnosis Comments HOME SLEEP TEST Routine 05/09/2023 10:18 AM EST documented in this encounter Results * Home sleep test (05/09/2023 10:18 AM EST) us Unknown Practice [facility] ORDERABLES Final Result documented in this encounter Visit Diagnoses Not on filedocumented in this encounter Care Teams Auditor Appraiser Relationship Specialty Start Date End Date Vlad Cesar MD [address] [place] [address] [place] [address] PCP - General Internal Medicine 10/21/22 Vlad Cesar MD [address] [place] [address] [place] [address] PCP - ACO Reach 10/31/22Friday, SHARMILA Zheng [address] [place] [address] Licensed Practical Nurse Family Medicine 09/04/23 09/08/23 documented as of this encounter
--- OUTSIDE RECORDS SUMMARY | 2024-12-20 15:26 | XMS_ITS | Encounter Summary ---
Author Organization [facility] Address [address] [place] [address] Care Team Providers Care Electronic Typesetting Machine Operator Name Role Phone Vlad Cesar MD Primary Care Provider [phone] Vlad Cesar MD Unavailable [phone] Encounter Details Date Type Department Care Team (Late st Contact Info) Description 03/25/2024 Clinisync Result Encounter [facility] External Department Unsolicited Vlad Cesar MD [address] [facility] 110 [place] [address] Social History Tobacco Use Types Packs/Day Years [...] How often do you attend chur or mu-ism services? Never 02/23/2024 Do you belong to any clubs o r organizations such as yazidism groups, unions, fraternal or athletic groups, or [...] Recorded Patient Health Questionnaire-2 Score 0 06/25/2023 [facility] Occupat ional Health - Occupational Stress [...] place to sleep or slept in a retirement (including now)? No 01/12/2023 Housing Stability Vital Sign Answer Chad e Recorded In the last 12 months, was t here a time when you were not able to pay the mortgage or rent on time? No 02/23/2024 Number of Times Moved in the Last Year Not on fi le 02/23/2024 At any time in the past 12 m [facility], were you homeless or living in a retirement (including now)? No 02/23/2024 Comments Unknown Sex [...] EDT Office Visit [facility] 112 [facility] 110 [place] [address] Vlad Cesar MD 112 [facility] 110 [place] [address] 03/07/2025 11:50 AM EDT Office Visit [facility] [address] [place] [address] Narinder Rubi, DPMona [address] [id number] documented as of this encounter Procedures Procedure Name Priority Date/Time Associated Diagnosis Comments MR LUMBAR SPINE W AND WO CONTRAST 03/25/2024 7:47 AM EDT documented in this encounter Results * MR lumbar spine w and wo contrast (03/25/2024 7:47 AM EDT) Anatomical Region Laterality Modality Spine, L-spine Magnetic Resonan ce 03/25/2024 7:47 AM EDT Narrative 03/25/2024 7:50 AM EDT [address] [address] Magnetic Resonance Report Signed Patient: LAURA LAWSON MR#: [id number] : 1950 Acct:[id number] Age/Sex: 73 / F ADM Date: 03/23/24 Loc: MRI Attending Dr: VLAD CESAR Ordering Physician: VLAD CESAR Date of Service: 03/23/24 Procedure(s): MR lumbar spine wo/w con Accession Number(s): [id number] cc: VLAD CESAR [place] [id number] Patient Name: LAURA LAWSON MRN: [facility]:[id number] date: 1950 Sex: F Assigned Patient Location: MRI Current Patient Location: Accession/Order Number: [id number] Exam Date: 03/23/2024 12:50 Report Date: 03/25/2024 07:47 At the request of: VLAD CESAR Procedure: MR lumbar spine wo/w con EXAMINATION: MR lumbar spine wo/w con HISTORY: lumbar radiculopathy COMPARISON: No relevant comparison available. TECHNIQUE: Axial T1 and T2; Sagittal T1, T2, and STIR sequences. Images were performed before and after the administration of intravenous Dotarem contrast. FINDINGS: For the purposes of numbering, sagittal T2 image # 8 extends from the T10 vertebral body superiorly to the S3 level inferiorly. PARASPINAL AREA: Normal with no visible mass. BONES: Normal alignment with no acute fracture or spondylolisthesis. Posterior decompression and bilateral transpedicular fusion L3-L5 with susceptibility artifact. There is increased STIR signal identified in the L2 vertebral body suggesting edema . Moderate diffuse degenerative spondylosis CORD/CAUDA EQUINA: Normal caliber, contour, and signal intensity. DISC LEVELS: 12-L1: Early degenerative disc disease is present without focal protrusion or neural impingement. L1-L2: Early degenerative disc disease is present without focal protrusion or neural impingement. L2-L3: Moderate disc space narrowing and desiccation with endplate sclerosis. Moderate ligamentum flavum hypertrophy and facet osteoarthropathy. Mild trefoil narrowing of the central canal. Mild right and no left foraminal stenosis L3-L4: Interbody spacer. Mild disc/osteophyte complex. Mild central canal stenosis. No foraminal stenosis L4-L5: 2 mm anterolisthesis of L4 on L5 Interbody spacer. Mild disc/osteophyte complex. Mild central canal stenosis. No foraminal stenosis. L5-S1: No significant disc/facet abnormality, spinal stenosis, or foraminal stenosis. MR/MR lumbar spine wo/w con IMPRESSION: Increased L1 STIR signal suggesting bone edema Lumbar fusion with degenerative changes resulting in mild central and foraminal stenosis detailed above Electronically authenticated by: DILLAN ANDREW Date: 03/25/2024 07:47 Dictated By: Dillan Andrew M.D. Signed By: 03/25/24 0750 DD/ 0747 TD/TT: Motion And Time Study Teacher: Procedure Note Radiology, Radiologist, MD - 03/25/2024 [place] [address] Magnetic Resonance Report Signed Patient: LAURA LAWSON AMR#: [id number] : 1950cct:[id number] Age/Sex: 73 / FADM Date: 03/23/24 Loc: MRI Attending Dr: VLAD CESAR Ordering Physician: VLAD CESAR Date of Service: 03/23/24 Procedure(s): MR lumbar spine wo/w con Accession Number(s): [id number] cc: VLAD CESAR [address] [place] [id number] Patient Name: LAURA LAWSON MRN: [facility]:[id number] date: 1950 Sex: F Assigned Patient Location: MRI Current Patient Location: Accession/Order Number: [id number] Exam Date: 03/23/2024 12:50 Report Date: 03/25/2024 07:47 At the request of: VLAD CESAR Procedure: MR lumbar spine wo/w con EXAMINATION: MR lumbar spine wo/w con HISTORY: lumbar radiculopathy COMPARISON: No relevant comparison available. TECHNIQUE: Axial T1 and T2; Sagittal T1, T2, and STIR sequences. Imageswere performed before and after the administration of intravenous Dotaremcontrast. FINDINGS: For the purposes of numbering, sagittal T2 image # 8 extends from the T10 vertebral body superiorly to the S3 level inferiorly. PARASPINAL AREA: Normal with no visible mass. BONES: Normal alignment with no acute fracture or spondylolisthesis.Posterior decompression and bilateral transpedicular fusion L3-L5 withsusceptibility artifact. There is increased STIR signal identified in the L2 vertebralbody suggesting edema . Moderate diffuse degenerative spondylosis CORD/CAUDA EQUINA: Normal caliber, contour, and signal intensity. DISC LEVELS: 12-L1: Early degenerative disc disease is present without focal protrusionor neural impingement. L1-L2: Early degenerative disc disease is present without focal protrusionor neural impingement. L2-L3: Moderate disc space narrowing and desiccation with endplatesclerosis. Moderate ligamentum flavum hypertrophy and facet osteoarthropathy. Mild trefoil narrowing of the central canal. Mild right and no left foraminal stenosis L3-L4: Interbody spacer. Mild disc/osteophyte complex. Mild central canal stenosis. No foraminal stenosis L4-L5: 2 mm anterolisthesis of L4 on L5 Interbody spacer. Milddisc/osteophyte complex. Mild central canal stenosis. No foraminal stenosis. L5-S1: No significant disc/facet abnormality, spinal stenosis, orforaminal stenosis. MR/MR lumbar spine wo/w con IMPRESSION: Increased L1 STIR signal suggesting bone edema Lumbar fusion with degenerative changes resulting in mild central and foraminal stenosis detailed above Electronically authenticated by: DILLAN ANDREW Date: 03/25/2024 07:47 Dictated By: Dillan Andrew M.D. Signed By:03/25/24 0750 DD/ 0747 TD/TT: Motion And Time Study Teacher: us Vlad Cesar MD IMG MRI PROCEDURES Final Resul t documented in this encounter Visit Diagnoses Not on filedocumented in this encounter Care Teams Electronic Typesetting Machine Operator Relationship Specialty Start Date End Date Vlad Cesar MD 112 [facility] 110 [place] [address] PCP - General Internal Medicine 10/21/22 Vlad Cesar MD 112 [facility] 110 [place] [address] PCP - ACO Reach 10/31/22 documented as of this encounter
--- OUTSIDE RECORDS SUMMARY | 2024-12-20 15:26 | XMS_ITS | Encounter Summary ---
Author Organization [facility] Address [address] [place] [address] Care Team Providers Care Red Lead Burner Name Role Phone Vlad Cesar MD Primary Care Provider [phone] Vlad Cesar MD Unavailable [phone] Friday, Marce DOLL Unavailable [phone] Encounter Details Date Type Department Care Team (Late st Contact Info) Description 03/14/2023 Abstract [facility] 112 [facility] 110 [place] [address] Vlad Cesar MD 112 [facility] 110 [place] [address] Social History Tobacco Use Types [...] often do you attend chur ch or mandaeism services? Never 01/12/2023 Do you belong to any clubs o r organizations such as congregation groups, unions, fraternal or athletic groups, or [...] and heating? Not hard at all 01/12/2023 [facility] of Occupat ional Health - Occupational Stress [...] place to sleep or slept in a usp (including now)? No 01/12/2023 Comments Unknown Sex [...] Office Visit [facility] [address] [facility] 110 [place] [address] Vlad Cesar MD [address] [place] [facility] 110 [place] [address] 03/07/2025 11:50 AM EDT Office Visit [facility] [address] [place] [address] Narinder Rubi DPM 3006 [facility] 5 [place] [address] documented as of this encounter Visit Diagnoses Not on filedocumented in this encounter Care Teams Red Lead Burner Relationship Specialty Start Date End Date Vlad Cesar MD 112 [place] [facility] 110 [place] [address] PCP - General Internal Medicine 10/21/22 Vlad Cesar MD [address] [place] [address] [place], [place] [address] PCP - ACO Reach 10/31/22Friday, SHARMILA Zheng [address] [place], [place] [address] Licensed Practical Nurse Family Medicine 09/04/23 09/08/23 documented as of this encounter
--- OUTSIDE RECORDS SUMMARY | 2024-12-20 15:26 | XMS_ITS | Encounter Summary ---
Author Organization [facility] Address [address] [place] [address] Care Team Providers Care Strike Plate Attacher Name Role Phone Vlad Cesar MD Primary Care Provider [phone] Vlad Cesar MD Unavailable [phone] Encounter Details Date Type Department Care Team (Late st Contact Info) Description 08/05/2024 Abstract [facility] 112 [facility] 110 [place] [address] Vlad Cesar MD 112 [facility] 110 [place], [place] [address] Social History Tobacco Use Types Packs/Day Years [...] How often do you attend chur or jainism services? Never 02/23/2024 Do you belong to any clubs o r organizations such as sabianist groups, unions, fraternal or athletic groups, or [...] Recorded Patient Health Questionnaire-2 Score 0 06/25/2023 [facility] of Occupat ional Health - Occupational [...] place to sleep or slept in a fci (including now)? No 01/12/2023 Housing Stability Vital Sign Answer Chad e Recorded In the last 12 months, was t here a time when you were not able to pay the mortgage or rent on time? No 02/23/2024 Number of Times Moved in the Last Year Not on fi le 02/23/2024 At any time in the past 12 m [facility], were you homeless or living in a fci (including now)? No 02/23/2024 Comments Unknown Sex [...] EDT Office Visit [facility] 112 [facility] 110 [place] [address] Vlad Cesar MD 112 [facility] 110 [place] [address] 03/07/2025 11:50 AM EDT Office Visit [facility] [address] [place] [address] Narinder Rubi DPM [address] [facility] 5 [place] [address] documented as of this encounter Visit Diagnoses Not on filedocumented in this encounter Care Teams Strike Plate Attacher Relationship Specialty Start Date End Date Vlad Cesar MD 112 [facility] 110 [place] [address] PCP - General Internal Medicine 10/21/22 Vlad Cesar MD 112 [facility] 110 [place] [address] PCP - ACO Reach 10/31/22 documented as of this encounter
--- OUTSIDE RECORDS SUMMARY | 2024-12-20 15:27 | XMS_ITS | Encounter Summary ---
Author Organization [facility] Address [address] [place] [address] Care Team Providers Care Senior Recruiter Name Role Phone Vlad Cesar MD Primary Care Provider [phone] Vlad Cesar MD Unavailable [phone] Encounter Details Date Type Department Care Team (Late st Contact Info) Description 08/04/2024 Abstract [facility] 112 [facility] 110 [place] [address] Vlad Cesar MD 112 [facility] 110 [place], [place] [address] Social History Tobacco Use Types Packs/Day Years [...] How often do you attend chur or faith services? Never 02/23/2024 Do you belong to any clubs o r organizations such as adventist groups, unions, fraternal or athletic groups, or [...] Recorded Patient Health Questionnaire-2 Score 0 06/25/2023 [facility] of Occupat ional Health - Occupational [...] any time in the past 12 m [facility], were you homeless or living [...] EDT Office Visit [facility] 112 [facility] 110 [place] [address] Vlad Cesar MD 112 [facility] 110 [place] [address] 03/07/2025 11:50 AM EDT Office Visit [facility] [address] [place] [address] Narinder Rubi DPM 3006 [facility] 5 [place] [address] documented as of this encounter Visit Diagnoses Not on filedocumented in this encounter Care Teams Senior Recruiter Relationship Specialty Start Date End Date Vlad Cesar MD 112 [facility] 110 [place] [address] PCP - General Internal Medicine 10/21/22 Vlad Cesar MD 112 [facility] 110 [place] [address] PCP - ACO Reach 10/31/22 documented as of this encounter
--- OUTSIDE RECORDS SUMMARY | 2024-12-20 15:27 | XMS_ITS | Encounter Summary ---
Author Organization [facility] Address [address] [place] [address] Care Team Providers Care K 12 Principal Name Role Phone Vlad Cesar MD Primary Care Provider [phone] Vlad Cesar MD Unavailable [phone] Encounter Details Date Type Department Care Team (Late st Contact Info) Description 05/18/2024 Abstract [facility] 112 [facility] 110 [place] [address] Vlad Cesar MD 112 [facility] 110 [place], [place] [address] Social History Tobacco Use Types Packs/Day Years [...] How often do you attend chur or anglican services? Never 02/23/2024 Do you belong to any clubs o r organizations such as baptist groups, unions, fraternal or athletic groups, or [...] Recorded Patient Health Questionnaire-2 Score 0 06/25/2023 [facility] of Occupat ional Health - [...] place to sleep or slept in a chcf (including now)? No 01/12/2023 Housing Stability Vital Sign Answer Chad e Recorded In the last 12 months, was t here a time when you were not able to pay the mortgage or rent on time? No 02/23/2024 Number of Times Moved in the Last Year Not on fi le 02/23/2024 At any time in the past 12 m [facility], were you homeless or living in a chcf (including now)? No 02/23/2024 Comments Unknown Sex [...] EDT Office Visit [facility] 112 [facility] 110 [place] [address] Vlad Cesar MD 112 [facility] 110 [place] [address] 03/07/2025 11:50 AM EDT Office Visit [facility] [address] [place] [address] Narinder Rubi DPM 3006 [facility] 5 [place] [address] documented as of this encounter Visit Diagnoses Not on filedocumented in this encounter Care Teams K 12 Principal Relationship Specialty Start Date End Date Vlad Cesar MD 112 [place] [facility] 110 [place] [address] PCP - General Internal Medicine 10/21/22 Vlad Cesar MD 112 [place] [facility] 110 [place] [address] PCP - ACO Reach 10/31/22 documented as of this encounter
--- OUTSIDE RECORDS SUMMARY | 2024-12-20 15:27 | XMS_ITS | Encounter Summary ---
Author Organization [facility] Address [address] [place] [address] Care Team Providers Care Barrel Washer Machine Name Role Phone Vlad Cesar MD Primary Care Provider Vlad Cesar MD Unavailable [phone] Friday, Marce DOLL Unavailable [phone] Encounter Details Date Type Department Care Team ([facility] Contact Info) Description 10/30/2022 Abstract [facility] 112 [facility] 110 [place] [address] Vlad Cesar MD 112 [facility] 110 [place] [address] Social History Tobacco Use Types Packs/Day Years Used Date Smoking Tobacco: Never Assessed Alcohol Use Standard Drinks/Week Comments Not Asked 0 (1 standard drink = 0.6 oz [...] suspected to have Coronavirus/COVID-19? No / Unsure 10/21/2022 12:50 PM EDT documented as of this encounter Plan of Treatment Upcoming Encounters Date Type Department Care Team ([facility] Contact Info) Description 12/23/2024 9:15 AM EDT Office Visit [facility] 112 [facility] 110 [place] [address] Vlad Cesar MD [address] [place] [address] [place] [address] 03/07/2025 11:50 AM EDT Office Visit [facility] [address] [place] [address] Narinder Rubi DPM 3006 [facility] 5 [place] [address] documented as of this encounter Visit Diagnoses Not on filedocumented in this encounter Care Teams Barrel Washer Machine Relationship Specialty Start Date End Date Vlad Cesar MD [address] [place] [address] [place] [address] PCP - General Internal Medicine 10/21/22 Vlad Cesar MD [address] [place] [address] [place] [address] PCP - ACO Reach 10/31/22Friday, SHARMILA Zheng [address] [place] [address] Licensed Practical Nurse Family Medicine 09/04/23 09/08/23 documented as of this encounter
--- OUTSIDE RECORDS SUMMARY | 2024-12-20 15:27 | XMS_ITS | Encounter Summary ---
Author Organization [facility] Address [address] [place] [address] Care Team Providers Care Aerial Gunner Name Role Phone Vlad Cesar MD Primary Care Provider [phone] Vlad Cesar MD Unavailable [phone] Encounter Details Date Type Department Care Team (Late st Contact Info) Description 09/01/2024 Abstract [facility] [address] [facility] 110 [place] [address] Vlad Cesar MD 112 [facility] 110 [place], [place] [address] Social History Tobacco Use Types Packs/Day Years [...] How often do you attend chur or muslim services? Never 02/23/2024 Do you belong to any clubs o r organizations such as lutheran groups, unions, fraternal or athletic groups, or [...] Date Recorded Patient Health Questionnaire-2 Score 0 09/03/2024 [facility] of Occupat ional Health - Occupational Stress [...] place to sleep or slept in a assisted (including now)? No 01/12/2023 Housing Stability Vital Sign Answer Chad e Recorded In the last 12 months, was t here a time when you were not able to pay the mortgage or rent on time? No 02/23/2024 Number of Times Moved in the Last Year Not on fi le 02/23/2024 At any time in the past 12 m [facility], were you homeless or living in a assisted (including now)? No 02/23/2024 Comments Unknown Sex and Gender Information Value Date Recorded Sex Assigned at Not on file Legal Sex Female 6:47 PM EDT Gender Identity Not on file Sexual Orientation Not on file documented as of this encounter Functional Status * Over the past 2 weeks, how often have you been bothered by any of the following problems? Question Answer Date of Assessment Author Little interest or pleasure in doing things Not at all 09/03/2024 11:25 AM EDAnisa Carmona L PN Feeling down, depressed, or hopeless Not at all 09/03/2024 11:25 AM EDT Anisa Shaffer L PN Patient Health Questionnaire -2 Score 0 09/03/2024 11:25 AM EDT Anisa Shaffer L PN documented as of this encounter Plan of Treatment Upcoming Encounters Date Type Department Care Team (Late st Contact Info) Description 12/23/2024 9:15 AM EDT Office Visit [facility] [address] [facility] 110 [place] [address] Vlad Cesar MD [address] [place] 110 [place] [address] 03/07/2025 11:50 AM EDT Office Visit [facility] [address] [place] [address] Narinder Rubi DPM [address] [address] documented as of this encounter Visit Diagnoses Not on filedocumented in this encounter Care Teams Aerial Gunner Relationship Specialty Start Date End Date Vlad Cesar MD [address] [facility] 110 [place] [address] PCP - General Internal Medicine 10/21/22 Vlad Cesar MD [address] [facility] 110 [place] [address] PCP - ACO Reach 10/31/22 documented as of this encounter
--- OUTSIDE RECORDS SUMMARY | 2024-12-20 15:27 | XMS_ITS | Encounter Summary ---
Author Organization [facility] Address [address] [place] [address] Care Team Providers Care Photography Manager Name Role Phone Vlad Cesar MD Primary Care Provider [phone] Vlad Cesar MD Unavailable [phone] Encounter Details Date Type Department Care Team (Late st Contact Info) Description 06/29/2024 Clinisync Result Encounter [facility] External Department Unsolicited Provider, Generic External Data Social History Tobacco Use Types Packs/Day Years [...] often do you attend chur ch or jainism services? Never 02/23/2024 Do you belong to any clubs o r organizations such as muslim groups, unions, fraternal or athletic groups, or [...] Recorded Patient Health Questionnaire-2 Score 0 06/[facility] Answer Date Recorded [...] place to sleep or slept in a senior care (including now)? No 01/12/2023 Housing Stability Vital Sign Answer Chad e Recorded In the last 12 months, was t here a time when you were not able to pay the mortgage or rent on time? No 02/23/2024 Number of Times Moved in the Last Year Not on fi le 02/23/2024 At any time in the past 12 m [facility], were you homeless or living in a senior care (including now)? No 02/23/2024 Comments Unknown Sex [...] EDT Office Visit [facility] 112 [facility] 110 [place] [address] Vlad Cesar MD 112 [facility] 110 [place], [place] [address] 03/07/2025 11:50 AM EDT Office Visit [facility] [address] [place] [address] Narinder Rubi DPM 3006 [facility] 5 [place] [address] documented as of this encounter Procedures Procedure Name Priority Date/Time Associated Diagnosis Comments CA ECHO DOPPLER COMPLETE 06/29/2024 7:14 PM EST documented in this encounter Results * CA ECHO DOPPLER COMPLETE (06/29/2024 7:14 PM EST) Anatomical Region Laterality Modality Other 06/29/2024 7:14 PM EST Narrative 06/29/2024 7:15 [place] [address] Cardiology Report Signed Patient: LAURA LAWSON MR#: [id number] : 1950 Acct:[id number] Age/Sex: 73 / F ADM Date: 06/28/24 Loc: CARD Attending Dr: JULITO ZENDEJAS Ordering Physician: JULITO ZENDEJAS Date of Service: 06/28/24 Procedure(s): CA echo doppler complete Accession Number(s): [id number] cc: VLAD CESAR ; JULITO ZENDEJAS Patient Name: LAURA LAWSON MR#: [id number] : 1950 Exam Date: 06/28/2024 Ordering Doctor: DR JULITO ZENDEJAS M.D. ECHOCARDIOGRAM REPORT PROCEDURE: CA ECHO DOPPLER COMPLETE INDICATIONS: Heart failure with reduce ejection fraction COMPARISON: None. DESCRIPTION: COMPLETE ECHOCARDIOGRAM Real-time transthoracic echocardiography with 2D, M-mode, spectral and color flow Doppler performed. QUALITY: Technical quality was good. LEFT VENTRICLE: Normal chamber size. Mild concentric left ventricular hypertrophy. There is akinesis of the apex and apical segments with good contractility of the remaining segments. Global systolic function is moderately reduced. LV EF: Moderately reduced left ventricular ejection fraction, (35-40%). DIASTOLIC: Grade I diastolic dysfunction. ATRIAL SEPTUM: Visually appears intact. LEFT ATRIUM: Mild dilatation. RIGHT ATRIUM: Normal chamber size. RIGHT VENTRICLE: Normal chamber size. Normal right ventricular systolic function. TRICUSPID VALVE: Normal mobility and thickness. No stenosis with trivial regurgitation. MITRAL VALVE: Moderately thickened with normal mobility. No evidence of mitral valve stenosis. Mild mitral annular calcification. Trivial mitral regurgitation. AORTIC VALVE: Normal trileaflet appearance. Thickened aortic valve. Normal leaflet mobility. No aortic valve stenosis. No aortic regurgitation. AORTIC ROOT: Normal diameter and appearance. PULMONIC VALVE: Normal thickness and mobility. No stenosis. Trivial regurgitation. PERICARDIUM: No evidence of pericardial effusion. IVC: Collapses with inspirations. PLEURA: CONCLUSION: 1. Mild concentric left ventricular hypertrophy with moderately reduced systolic function and segmental wall motion abnormalities involving the apex and apical segments. Estimated LVEF is 35 to 40%. 2. Normal right ventricular size and systolic function. 3. No significant valvular dysfunction. 4. No pericardial effusion. Adult Echocardiography Procedure Report Left Ventricle LVEDD (3.7 - 5.6 cm): 4.35 cm LVESD (2.2 - 4.0 cm): 3.02 cm LVIVS thickness (0.6 - 1.2 cm): 1.03 cm LVPW thickness (0.5 - 1.0 cm): 1.11 cm e': 0.05 m/s E - e': 6.22 LVOT Max Gradient: 1.38 mm[Hg] LVOT Area (cm2): 0.59 m/s Peak Velocity (LVOT): 0.59 m/s Mean Velocity (LVOT): 0.35 m/s LVOT Diameter 2.11 cm Left Atrium LA Volume Index (2D A2C): 38.19 ml/m2 Left Atrium Systolic Dimension: 4.67 cm Mitral Valve MV E to A Ratio: 0.41 Mitral Valve A-Wave Peak Velocity: 0.79 m/s Mitral Valve E-Wave Peak Velocity: 0.33 m/s Right Ventricle Aorta AO Root Diam: 3.12 cm Aortic Valve AoV Area (Peak Dixon): 1.52 cm2, 1.52 cm2 AoV Area (VTI): 1.63 cm2, 1.63 cm2 Peak Velocity(Antegrade Flow): 1.35 m/s Peak Gradient(Antegrade Flow): 7.26 mm[Hg] Mean Velocity(Antegrade Flow): 0.86 m/s Mean Gradient(Antegrade Flow): 3.60 mm[Hg] Velocity Time Integral: 25.92 cm Tricuspid Valve Pulmonic Valve Mean Gradient: 3.05 mm[Hg] Mean Velocity: 0.81 m/s Peak Velocity: 1.30 m/s, 1.41 m/s Peak Gradient: 7.90 mm[Hg], 6.74 mm[Hg] Right Atrium Right Atrium Systolic Pressure: 29.42 ml, 29.42 ml Dictated by: Julito Zendejas M.D. on 06/29/2024 at 19:07 Approved by: Julito Zendejas M.D. on 06/29/2024 at 19:14 Dictated By: JULITO ZENDEJAS Signed By: 06/29/241914 DD/ 13 TD/TT: Supervisor Tellers: Procedure Note Radiology, Radiologist, MD - 06/29/2024 [place] [address] Cardiology Report Signed Patient: LAURA LAWSON AMR#: [id number] : 1950cct:[id number] Age/Sex: 73 / FADM Date: 06/28/24 Loc: CARD Attending Dr: JULITO ZENDEJAS Ordering Physician: JULITO ZENDEJAS Date of Service: 06/28/24 Procedure(s): CA echo doppler complete Accession Number(s): [id number] cc: VLAD CESAR ; JULITO ZENDEJAS Patient Name: LAURA LAWSON MR#: [id number] : 1950 Exam Date: 06/28/2024 Ordering Doctor: DR JULITO ZENDEJAS M.D. ECHOCARDIOGRAM REPORT PROCEDURE: CA ECHO DOPPLER COMPLETE INDICATIONS: Heart failure with reduce ejection fraction COMPARISON: None. DESCRIPTION: COMPLETE ECHOCARDIOGRAM Real-time transthoracic echocardiography with 2D, M-mode, spectral and color flow Dopplerperformed. QUALITY: Technical quality was good. LEFT VENTRICLE: Normal chamber size. Mild concentric left ventricular hypertrophy. There is akinesis of the apex and apical segments with good contractility of the remaining segments. Global systolic function is moderately reduced. LV EF: Moderately reduced left ventricular ejection fraction,(35-40%). DIASTOLIC: Grade I diastolic dysfunction. ATRIAL SEPTUM: Visually appears intact. LEFT ATRIUM: Mild dilatation. RIGHT ATRIUM: Normal chamber size. RIGHT VENTRICLE: Normal chamber size. Normal right ventricularsystolic function. TRICUSPID VALVE: Normal mobility and thickness. No stenosis with trivial regurgitation. MITRAL VALVE: Moderately thickened with normal mobility. No evidenceof mitral valve stenosis. Mild mitral annular calcification. Trivial mitral regurgitation. AORTIC VALVE: Normal trileaflet appearance. Thickened aortic valve. Normal leaflet mobility. No aortic valve stenosis. No aorticregurgitation. AORTIC ROOT: Normal diameter and appearance. PULMONIC VALVE: Normal thickness and mobility. No stenosis. Trivial regurgitation. PERICARDIUM: No evidence of pericardial effusion. IVC: Collapses with inspirations. PLEURA: CONCLUSION: 1. Mild concentric left ventricular hypertrophy with moderately reduced systolic function and segmental wall motion abnormalities involving theapex and apical segments. Estimated LVEF is 35 to 40%. 2. Normal right ventricular size and systolic function. 3. No significant valvular dysfunction. 4. No pericardial effusion. Adult Echocardiography Procedure Report Left Ventricle LVEDD (3.7 - 5.6 cm): 4.35 cm LVESD (2.2 - 4.0 cm): 3.02 cm LVIVS thickness (0.6 - 1.2 cm): 1.03 cm LVPW thickness (0.5 - 1.0 cm): 1.11 cm e': 0.05 m/s E - e': 6.22 LVOT Max Gradient: 1.38 mm[Hg] LVOT Area (cm2): 0.59 m/s Peak Velocity (LVOT): 0.59 m/s Mean Velocity (LVOT): 0.35 m/s LVOT Diameter 2.11 cm Left Atrium LA Volume Index (2D A2C): 38.19 ml/m2 Left Atrium Systolic Dimension: 4.67 cm Mitral Valve MV E to A Ratio: 0.41 Mitral Valve A-Wave Peak Velocity: 0.79 m/s Mitral Valve E-Wave Peak Velocity: 0.33 m/s Right Ventricle Aorta AO Root Diam: 3.12 cm Aortic Valve AoV Area (Peak Dixon): 1.52 cm2, 1.52 cm2 AoV Area (VTI): 1.63 cm2, 1.63 cm2 Peak Velocity(Antegrade Flow): 1.35 m/s Peak Gradient(Antegrade Flow): 7.26 mm[Hg] Mean Velocity(Antegrade Flow): 0.86 m/s Mean Gradient(Antegrade Flow): 3.60 mm[Hg] Velocity Time Integral: 25.92 cm Tricuspid Valve Pulmonic Valve Mean Gradient: 3.05 mm[Hg] Mean Velocity: 0.81 m/s Peak Velocity: 1.30 m/s, 1.41 m/s Peak Gradient: 7.90 mm[Hg], 6.74 mm[Hg] Right Atrium Right Atrium Systolic Pressure: 29.42 ml, 29.42 ml Dictated by: Julito Zendejas M.D. on 06/29/2024 at 19:07 Approved by: Julito Zendejas M.D. on 06/29/2024 at 19:14 Dictated By: JULITO ZENDEJAS Signed By:06/29/241914 DD/ 13 TD/TT: Supervisor Tellers: us Generic External Data Provider [facility] Final Result documented in this encounter Visit Diagnoses Not on filedocumented in this encounter Care Teams Photography Manager Relationship Specialty Start Date End Date Vlad Cesar MD [address] [facility] 110 [place] [address] PCP - General Internal Medicine 10/21/22 Vlad Cesar MD [address] [facility] 110 [place] [address] PCP - ACO Reach 10/31/22 documented as of this encounter
--- OUTSIDE RECORDS SUMMARY | 2024-12-20 15:27 | XMS_ITS | Encounter Summary ---
Author Organization [facility] Address [address] [place] [address] Care Team Providers Care Boat Engines Installer Name Role Phone Vlad Cesar MD Primary Care Provider [phone] Vlad Cesar MD Unavailable [phone] Encounter Details Date Type Department Care Team (Late st Contact Info) Description 08/04/2024 Abstract [facility] [address] [facility] 110 [place] [address] Vlad Cesar MD 112 [facility] 110 [place], [place] [address] Social History Tobacco Use Types Packs/Day Years [...] How often do you attend chur or quaker services? Never 02/23/2024 Do you belong to any clubs o r organizations such as scientologist groups, unions, fraternal or athletic groups, or [...] Recorded Patient Health Questionnaire-2 Score 0 06/25/2023 [facility] of Occupat ional Health - [...] place to sleep or slept in a custodial (including now)? No 01/12/2023 Housing Stability Vital Sign Answer Chad e Recorded In the last 12 months, was t here a time when you were not able to pay the mortgage or rent on time? No 02/23/2024 Number of Times Moved in the Last Year Not on fi le 02/23/2024 At any time in the past 12 m [facility], were you homeless or living in a custodial (including now)? No 02/23/2024 Comments Unknown Sex [...] EDT Office Visit [facility] [address] [facility] 110 [place] [address] Vlad Cesar MD 112 [facility] 110 [place] [address] 03/07/2025 11:50 AM EDT Office Visit [facility] [address] [place] [address] Narinder Rubi DPM 3006 [facility] 5 [place] [address] documented as of this encounter Visit Diagnoses Not on filedocumented in this encounter Care Teams Boat Engines Installer Relationship Specialty Start Date End Date Vlad Cesar MD [address] [place] [facility] 110 [place] [address] PCP - General Internal Medicine 10/21/22 Vlad Cesar MD [address] [place] [facility] 110 [place] [address] PCP - ACO Reach 10/31/22 documented as of this encounter
--- OUTSIDE RECORDS SUMMARY | 2024-12-20 15:27 | XMS_ITS | Encounter Summary ---
Author Organization [facility] Address [address] [place] [address] Care Team Providers Care Technical Services Rep Name Role Phone Vlad Cesar MD Primary Care Provider [phone] Vlad Cesar MD Unavailable [phone] Encounter Details Date Type Department Care Team (Late st Contact Info) Description 04/22/2024 Abstract [facility] 112 [facility] 110 [place] [address] Vlad Cesar MD 112 [facility] 110 [place], [place] [address] Social History Tobacco Use Types Packs/Day Years [...] How often do you attend chur or taoism services? Never 02/23/2024 Do you belong to any clubs o r organizations such as episcopalian groups, unions, fraternal or athletic groups, or [...] Recorded Patient Health Questionnaire-2 Score 0 06/25/2023 [facility] of Occupat ional Health - Occupational [...] a long term (including now)? No 01/12/2023 Housing Stability Vital [...] in a long term (including now)? No 02/23/2024 Comments Unknown Sex [...] EDT Office Visit [facility] 112 [facility] 110 [place] [address] Vlad Cesar MD 112 [facility] 110 [place] [address] 03/07/2025 11:50 AM EDT Office Visit [facility] [address] [place] [address] Narinder Rubi DPM 3006 [facility] 5 [place] [address] documented as of this encounter Visit Diagnoses Not on filedocumented in this encounter Care Teams Technical Services Rep Relationship Specialty Start Date End Date Vlad Cesar MD 112 [facility] 110 [place] [address] PCP - General Internal Medicine 10/21/22 Vlad Cesar MD 112 [facility] 110 [place] [address] PCP - ACO Reach 10/31/22 documented as of this encounter
--- OUTSIDE RECORDS SUMMARY | 2024-12-20 15:27 | XMS_ITS | Encounter Summary ---
Author Organization [facility] Address [address] [place] [address] Care Team Providers Care Junior Electrical Engineer Name Role Phone Vlad Cesar MD Primary Care Provider [phone] Vlad Cesar MD Unavailable [phone] Encounter Details Date Type Department Care Team (Late st Contact Info) Description 07/08/2024 Abstract [facility] 112 [facility] 110 [place] [address] Vlad Cesar MD 112 [facility] 110 [place], [place] [id number] Social History Tobacco Use Types Packs/Day Years [...] How often do you attend chur or pentecostal services? Never 02/23/2024 Do you belong to any clubs o r organizations such as uatsdin groups, unions, fraternal [...] Recorded Patient Health Questionnaire-2 Score 0 06/25/2023 [facility] of Occupat ional Health - Occupational Stress [...] place to sleep or slept in a alf (including now)? No 01/12/2023 Housing Stability Vital Sign Answer Chad e Recorded In the last 12 months, was t here a time when you were not able to pay the mortgage or rent on time? No 02/23/2024 Number of Times Moved in the Last Year Not on fi le 02/23/2024 At any time in the past 12 m [facility], were you homeless or living in a alf (including now)? No 02/23/2024 Comments Unknown Sex [...] EDT Office Visit [facility] 112 [facility] 110 [place] [address] Vlad Cesar MD 112 [facility] 110 [place] [address] 03/07/2025 11:50 AM EDT Office Visit [facility] [address] [place] [address] Narinder Rubi DPM 3006 [facility] 5 [place] [address] documented as of this encounter Visit Diagnoses Not on filedocumented in this encounter Care Teams Junior Electrical Engineer Relationship Specialty Start Date End Date Vlad Cesar MD 112 [place] [facility] 110 [place] [address] PCP - General Internal Medicine 10/21/22 Vlad Cesar MD 112 [place] [facility] 110 [place] [address] PCP - ACO Reach 10/31/22 documented as of this encounter
--- OUTSIDE RECORDS SUMMARY | 2024-12-20 15:27 | XMS_ITS | Encounter Summary ---
Author Organization [facility] Address [address] [place] [address] Care Team Providers Care Diesel Locomotive Crane Operator Name Role Phone Vlad Cesar MD Primary Care Provider [phone] Vlad Cesar MD Unavailable [phone] Encounter Details Date Type Department Care Team (Late st Contact Info) Description 06/14/2024 Orders Only [facility] [address] [place] 110 [place] [address] Unallocated, Noms Provider, [address] [place], [place] [phone] Social History Tobacco Use Types Packs/Day Years [...] How often do you attend chur or amish services? Never 02/23/2024 Do you belong to any clubs o r organizations such as cheondoism groups, unions, fraternal or athletic groups, or [...] Recorded Patient Health Questionnaire-2 Score 0 06/25/2023 [facility] of Occupat ional Health - Occupational [...] place to sleep or slept in a detention (including now)? No 01/12/2023 Housing Stability Vital Sign Answer Chad e Recorded In the last 12 months, was t here a time when you were not able to pay the mortgage or rent on time? No 02/23/2024 Number of Times Moved in the Last Year Not on fi le 02/23/2024 At any time in the past 12 m [facility], were you homeless or living in a detention (including now)? No 02/23/2024 Comments Unknown Sex [...] EDT Office Visit [facility] 112 [facility] 110 [place] [address] Vlad Cesar MD 112 [facility] 110 [place] [address] 03/07/2025 11:50 AM EDT Office Visit [facility] [address] [place] [address] Narinder Rubi, DPM 3006 [facility] 5 [place] [address] documented as of this encounter Procedures Procedure Name Priority Date/Time Associated Diagnosis Comments ECG 12-LEAD Routine 06/14/2024 8:20 AM EST documented in this encounter Results * ECG 12 lead (06/14/2024 8:20 AM EST) us Noms Provider Unallocated ECG ORDERABLES Fin al Result documented in this encounter Visit Diagnoses Not on filedocumented in this encounter Care Teams Diesel Locomotive Crane Operator Relationship Specialty Start Date End Date Vlad Cesar MD [address] [place] [facility] 110 [place] [address] PCP - General Internal Medicine 10/21/22 Vlad Cesar MD [address] [place] [facility] 110 [place] [address] PCP - ACO Reach 10/31/22 documented as of this encounter
--- OUTSIDE RECORDS SUMMARY | 2024-12-20 15:27 | XMS_ITS | Encounter Summary ---
Author Organization [facility] Address [address] [place] [address] Care Team Providers Care Skip Operator Name Role Phone Vlad Cesar MD Primary Care Provider [phone] Vlad Cesar MD Unavailable [phone] Encounter Details Date Type Department Care Team (Late st Contact Info) Description 08/27/2024 Abstract [facility] [address] [facility] 110 [place] [address] Vlad Cesar MD 112 [facility] 110 [place], [place] [address] Social History Tobacco Use Types Packs/Day Years [...] any clubs o r organizations such as buddhism groups, unions, fraternal or athletic groups, or [...] place to sleep or slept in a residential (including now)? No 01/12/2023 Housing Stability Vital Sign Answer Chad e Recorded In the last 12 months, was t here a time when you were not able to pay the mortgage or rent on time? No 02/23/2024 Number of Times Moved in the Last Year Not on fi le 02/23/2024 At any time in the past [address] [facility], were you homeless or living in a residential (including now)? No 02/23/2024 Comments Unknown Sex [...] Office Visit [facility] [address] [facility] 110 [place] [address] Vlad Cesar MD 112 [facility] 110 [place] [address] 03/07/2025 11:50 AM EDT Office Visit [facility] [address]006 [place] [address] Narinder Rubi DPM 3006 [facility] 5 [place] [address] documented as of this encounter Visit Diagnoses Not on filedocumented in this encounter Care Teams Skip Operator Relationship Specialty Start Date End Date lVad Cesar MD 112 [facility] 110 [place] [address] PCP - General Internal Medicine 10/21/22 Vlad Cesar MD 112 [facility] 110 [place] [address] PCP - ACO Reach 10/31/22 documented as of this encounter
--- OUTSIDE RECORDS SUMMARY | 2024-12-20 15:27 | XMS_ITS | Encounter Summary ---
Author Organization [facility] Address [address] [place] [address] Care Team Providers Care Strap Folding Machine Operator Name Role Phone Vlad Cesar MD Primary Care Provider [phone] Vlad Cesar MD Unavailable [phone] Encounter Details Date Type Department Care Team (Late st Contact Info) Description 04/29/2024 Abstract [facility] 112 [facility] 110 [place] [address] Vlad Cesar MD 112 [facility] 110 [place], [place] [address] Social History Tobacco Use Types Packs/Day Years [...] How often do you attend chur or yazidi services? Never 02/23/2024 Do you belong to [...] Recorded Patient Health Questionnaire-2 Score 0 06/25/2023 [facility] of Occupat ional Health - [...] in a usp (including now)? No 01/12/2023 Housing Stability Vital Sign Answer Chad e Recorded In the last 12 months, was t here a time when you were not able to pay the mortgage or rent on time? No 02/23/2024 Number of Times Moved in the Last Year Not on fi le 02/23/2024 At any time in the past 12 m [facility], were you homeless or living in a usp (including now)? No 02/23/2024 Comments Unknown Sex [...] EDT Office Visit [facility] 112 [facility] 110 [place] [address] Vlad Cesar MD 112 [facility] 110 [place] [address] 03/07/2025 11:50 AM EDT Office Visit [facility] [address] [place] [address] Narinder Rubi DPM 3006 [facility] [place] [address] documented as of this encounter Visit Diagnoses Not on filedocumented in this encounter Care Teams Strap Folding Machine Operator Relationship Specialty Start Date End Date Vlad Cesar MD [address] [place] [facility] 110 [place] [address] PCP - General Internal Medicine 10/21/22 Vlad Cesar MD [address] [place] [facility] 110 [place] [address] PCP - ACO Reach 10/31/22 documented as of this encounter
--- OUTSIDE RECORDS SUMMARY | 2024-12-20 15:27 | XMS_ITS | Encounter Summary ---
Author Organization [facility] Address [address] [place] [address] Care Team Providers Care Dermatology Specialist Name Role Phone Vlad Cesar MD Primary Care Provider [phone] Vlad Cesar MD Unavailable [phone] Encounter Details Date Type Department Care Team (Late st Contact Info) Description 05/18/2024 Abstract [facility] 112 [facility] 110 [place] [address] Vlad Cesar MD 112 [facility] 110 [place], [place] [id number] Social History Tobacco Use Types Packs/Day Years [...] How often do you attend chur or moravian services? Never 02/23/2024 Do you belong to any clubs o r organizations such as spiritism groups, unions, fraternal or athletic groups, or [...] Recorded Patient Health Questionnaire-2 Score 0 06/25/2023 [facility] of Occupat ional Health - Occupational [...] place to sleep or slept in a group home (including now)? No 01/12/2023 Housing Stability Vital Sign Answer Chad e Recorded In the last 12 months, was t here a time when you were not able to pay the mortgage or rent on time? No 02/23/2024 Number of Times Moved in the Last Year Not on fi le 02/23/2024 At any time in the past 12 m [facility], were you homeless or living in a group home (including now)? No 02/23/2024 Comments Unknown Sex [...] EDT Office Visit [facility] 112 [facility] 110 [place] [address] Vlad Cesar MD 112 [facility] 110 [place] [address] 03/07/2025 11:50 AM EDT Office Visit [facility] [address] [place] [address] Narinder Rubi DPM 3006 [facility] 5 [place] [address] documented as of this encounter Visit Diagnoses Not on filedocumented in this encounter Care Teams Dermatology Specialist Relationship Specialty Start Date End Date Vlad Cesar MD 112 [place] [facility] 110 [place] [address] PCP - General Internal Medicine 10/21/22 Vlad Cesar MD [address] [place] [facility] 110 [place] [address] PCP - ACO Reach 10/31/22 documented as of this encounter
--- OUTSIDE RECORDS SUMMARY | 2024-12-20 15:27 | XMS_ITS | Encounter Summary ---
Author Organization [facility] Address [address] [place] [address] Care Team Providers Care Tubing Assembler Name Role Phone Vlad Cesar MD Primary Care Provider [phone] Vlad Cesar MD Unavailable [phone] Encounter Details Date Type Department Care Team (Late st Contact Info) Description 09/14/2024 Abstract [facility] 112 [facility] 110 [place] [address] Vlad Cesar MD 112 [facility] 110 [place], [place] [address] Social History Tobacco Use Types Packs/Day Years [...] How often do you attend chur or buddhism services? Never 02/23/2024 Do you belong to [...] Date Recorded Patient Health Questionnaire-2 Score 0 09/13/2024 [facility] of Occupat ional Health - Occupational Stress [...] to sleep or slept in a senior living (including now)? No 01/12/2023 Housing Stability Vital Sign Answer Chad e Recorded In the last 12 months, was t here a time when you were not able to pay the mortgage or rent on time? No 02/23/2024 Number of Times Moved in the Last Year Not on fi le 02/23/2024 At any time in the past 12 m [facility], were you homeless or living in a senior living (including now)? No 02/23/2024 Comments Unknown Sex [...] EDT Office Visit [facility] 112 [facility] 110 [place] [address] Vlad Cesar MD 112 [facility] 110 [place] [address] 03/07/2025 11:50 AM EDT Office Visit [facility] [address] [place] [address] Narinder Rubi DPM 3006 [facility] 5 [place] [address] documented as of this encounter Visit Diagnoses Not on filedocumented in this encounter Care Teams Tubing Assembler Relationship Specialty Start Date End Date Vlad Cesar MD 112 [facility] 110 [place] [address] PCP - General Internal Medicine 10/21/22 Vlad Cesar MD 112 [facility] 110 [place] [address] PCP - ACO Reach 10/31/22 documented as of this encounter
--- OUTSIDE RECORDS SUMMARY | 2024-12-20 15:27 | XMS_ITS | Encounter Summary ---
Author Organization [facility] Address [address] [place] [address] Care Team Providers Care Pediatric Psychologist Name Role Phone Vlad Cesar MD Primary Care Provider [phone] Vlad Cesar MD Unavailable [phone] Friday, Marce DOLL Unavailable [phone] Encounter Details Date Type Department Care Team ([facility] Contact Info) Description 11/12/2022 Abstract [facility] 112 [facility] 110 [place] [address] Vlad Cesar MD 112 [facility] 110 [place] [address] Social History Tobacco Use Types [...] Upcoming Encounters Date Type Department Care Team ([facility] Contact Info) Description 12/23/2024 9:15 AM EDT Office Visit [facility] 112 [facility] 110 [place] [address] Vlad Cesar MD [address] [place] [address] [place] [address] 03/07/2025 11:50 AM EDT Office Visit [facility] [address] [place] [address] Narinder Rubi DPM 3006 [facility] 5 [place] [address] documented as of this encounter Visit Diagnoses Not on filedocumented in this encounter Care Teams Pediatric Psychologist Relationship Specialty Start Date End Date Vlad Cesar MD [address] [place] 110 [place] [address] PCP - General Internal Medicine 10/21/22 Vlad Cesar MD [address] [place] [address] [place] [address] PCP - ACO Reach 10/31/22Friday, SHARMILA Zheng [address] [place] [address] Licensed Practical Nurse Family Medicine 09/04/23 09/08/23 documented as of this encounter
--- OUTSIDE RECORDS SUMMARY | 2024-12-20 15:27 | XMS_ITS | Encounter Summary ---
Author Organization [facility] Address [address] [place] [address] Care Team Providers Care Educational Technology Specialist Name Role Phone Vlad Cesar MD Primary Care Provider [phone] Vlad Cesar MD Unavailable [phone] Encounter Details Date Type Department Care Team (Late st Contact Info) Description 05/18/2024 Abstract [facility] 112 [facility] 110 [place] [address] Vlad Cesar MD 112 [facility] 110 [place], [place] [id number] Social History Tobacco Use Types Packs/Day Years [...] How often do you attend chur or hoahaoism services? Never 02/23/2024 Do you belong to [...] Recorded Patient Health Questionnaire-2 Score 0 06/25/2023 [facility] of Occupat ional Health - Occupational [...] in a fdc (including now)? No 01/12/2023 Housing Stability Vital Sign Answer Chad e Recorded In the last 12 months, was t here a time when you were not able to pay the mortgage or rent on time? No 02/23/2024 Number of Times Moved in the Last Year Not on fi le 02/23/2024 At any time in the past 12 m [facility], were you homeless or living in a fdc (including now)? No 02/23/2024 Comments Unknown Sex [...] EDT Office Visit [facility] 112 [facility] 110 [place] [address] Vlad Cesar MD 112 [facility] 110 [place] [address] 03/07/2025 11:50 AM EDT Office Visit [facility] [address] [place] [address] Narinder Rubi DPM 3006 [facility] 5 [place] [address] documented as of this encounter Visit Diagnoses Not on filedocumented in this encounter Care Teams Educational Technology Specialist Relationship Specialty Start Date End Date Vlad Cesar MD 112 [place] [facility] 110 [place] [address] PCP - General Internal Medicine 10/21/22 Vlad Cesar MD [address] [place] [facility] 110 [place] [address] PCP - ACO Reach 10/31/22 documented as of this encounter
--- OUTSIDE RECORDS SUMMARY | 2024-12-20 15:27 | XMS_ITS | Encounter Summary ---
Author Organization [facility] Address [address] [place] [address] Care Team Providers Care Rent And Miscellaneous Remittance Clerk Name Role Phone Vlad Cesar MD Primary Care Provider [phone] Vlad Cesar MD Unavailable [phone] Encounter Details Date Type Department Care Team (Late st Contact Info) Description 09/14/2024 Abstract [facility] 112 [facility] 110 [place] [address] Vlad Cesar MD 112 [facility] 110 [place], [place] [address] Social History Tobacco Use Types Packs/Day Years [...] How often do you attend chur or zoroastrianism services? Never 02/23/2024 Do you belong to any clubs o r organizations such as mandaeism groups, unions, fraternal or athletic groups, or [...] Recorded Patient Health Questionnaire-2 Score 0 09/13/2024 [facility] of Occupat ional Health - Occupational [...] any time in the past 12 m [facility], were you homeless or living in a [...] Office Visit [facility] 112 [facility] 110 [place] [address] Vlad Cesar MD 112 [facility] 110 [place] [address] 03/07/2025 11:50 AM EDT Office Visit [facility] [address] [place] [address] Narinder Rubi DPM 3006 [facility] 5 [place] [address] documented as of this encounter Visit Diagnoses Not on filedocumented in this encounter Care Teams Rent And Miscellaneous Remittance Clerk Relationship Specialty Start Date End Date Vlad Cesar MD 112 [place] [facility] 110 [place] [address] PCP - General Internal Medicine 10/21/22 Vlad Cesar MD 112 [place] [facility] 110 [place] [address] PCP - ACO Reach 10/31/22 documented as of this encounter
--- OUTSIDE RECORDS SUMMARY | 2024-12-20 15:27 | XMS_ITS | Encounter Summary ---
Author Organization [facility] Address [address] [place] [address] Care Team Providers Care Sanitation Inspector Name Role Phone Vlad Cesar MD Primary Care Provider [phone] Vlad Cesar MD Unavailable [phone] Encounter Details Date Type Department Care Team (Late st Contact Info) Description 04/08/2024 Abstract [facility] 112 [facility] 110 [place] [address] Vlad Cesar MD 112 [facility] 110 [place], [place] [address] Social History Tobacco Use Types Packs/Day Years [...] Recorded Patient Health Questionnaire-2 Score 0 06/25/2023 [facility] of Occupat ional Health - Occupational Stress [...] place to sleep or slept in a nursing home (including now)? No 01/12/2023 Housing Stability [...] were you homeless or living in a nursing home (including now)? No 02/23/2024 Comments Unknown [...] EDT Office Visit [facility] 112 [facility] 110 [place] [address] Vlad Cesar MD 112 [facility] 110 [place] [address] 03/07/2025 11:50 AM EDT Office Visit [facility] [address] [place] [address] Narinder Rubi DPM 3006 [facility] 5 [place] [address] documented as of this encounter Visit Diagnoses Not on filedocumented in this encounter Care Teams Sanitation Inspector Relationship Specialty Start Date End Date Vlad Cesar MD 112 [place] 110 [place] [address] PCP - General Internal Medicine 10/21/22 Vlad Cesar MD 112 [facility] 110 [place] [address] PCP - ACO Reach 10/31/22 documented as of this encounter
--- OUTSIDE RECORDS SUMMARY | 2024-12-20 15:27 | XMS_ITS | Encounter Summary ---
Author Organization [facility] Address [address] [place] [address] Care Team Providers Care Plate Worker Helper Name Role Phone Vlad Cesar MD Primary Care Provider [phone] Vlad Cesar MD Unavailable [phone] Encounter Details Date Type Department Care Team (Late st Contact Info) Description 08/04/2024 Abstract [facility] [address] [facility] 110 [place] [address] Vlad Cesar MD 112 [facility] 110 [place], [place] [address] Social History Tobacco Use Types Packs/Day Years [...] How often do you attend chur or sabianist services? Never 02/23/2024 Do you belong to [...] Recorded Patient Health Questionnaire-2 Score 0 06/25/2023 [facility] of Occupat ional Health - [...] any time in the past 12 m [facility], were you homeless or [...] Office Visit [facility] [address] [facility] 110 [place] [address] Vlad Cesar MD 112 [facility] 110 [place] [address] 03/07/2025 11:50 AM EDT Office Visit [facility] [address] [place] [address] Narinder Rubi DPM 3006 [facility] 5 [place] [address] documented as of this encounter Visit Diagnoses Not on filedocumented in this encounter Care Teams Plate Worker Helper Relationship Specialty Start Date End Date Vlad Cesar MD [address] [facility] 110 [place] [address] PCP - General Internal Medicine 10/21/22 Vlad Cesar MD [address] [facility] 110 [place] [address] PCP - ACO Reach 10/31/22 documented as of this encounter
--- OUTSIDE RECORDS SUMMARY | 2024-12-20 15:27 | XMS_ITS | Encounter Summary ---
Author Organization [facility] Address [address] [place] [address] Care Team Providers Care Storage Battery Charger Name Role Phone Vlad Cesar MD Primary Care Provider [phone] Vlad Cesar MD Unavailable [phone] Encounter Details Date Type Department Care Team (Late st Contact Info) Description 05/19/2024 Abstract [facility] 112 [facility] 110 [place] [address] Vlad Cesar MD 112 [facility] 110 [place], [place] [address] Social History Tobacco Use Types Packs/Day Years [...] How often do you attend chur or shinto services? Never 02/23/2024 Do you belong to any clubs o r organizations such as alevism groups, unions, fraternal or athletic groups, or [...] Recorded Patient Health Questionnaire-2 Score 0 06/25/2023 [facility] of Occupat ional Health - Occupational Stress [...] place to sleep or slept in a prison (including now)? No 01/12/2023 Housing Stability Vital Sign Answer Chad e Recorded In the last 12 months, was t here a time when you were not able to pay the mortgage or rent on time? No 02/23/2024 Number of Times Moved in the Last Year Not on fi le 02/23/2024 At any time in the past [address] [facility], were you homeless or living in a prison (including now)? No 02/23/2024 Comments Unknown Sex [...] EDT Office Visit [facility] 112 [facility] 110 [place] [address] Vlad Cesar MD 112 [facility] 110 [place] [address] 03/07/2025 11:50 AM EDT Office Visit [facility] [address] [place] [address] Narinder Rubi DPM 3006 [facility] 5 [place] [address] documented as of this encounter Visit Diagnoses Not on filedocumented in this encounter Care Teams Storage Battery Charger Relationship Specialty Start Date End Date Vlad Cesar MD [address] [place] [facility] 110 [place] [address] PCP - General Internal Medicine 10/21/22 Vlad Cesar MD [address] [place] [facility] 110 [place] [address] PCP - ACO Reach 10/31/22 documented as of this encounter
--- OUTSIDE RECORDS SUMMARY | 2024-12-20 15:27 | XMS_ITS | Encounter Summary ---
Author Organization [facility] Address [address] [place] [address] Care Team Providers Care Space And Missile Operations Name Role Phone Vlad Cesar MD Primary Care Provider [phone] Vlad Cesar MD Unavailable [phone] Encounter Details Date Type Department Care Team (Late st Contact Info) Description 04/13/2024 Abstract [facility] 112 [facility] 110 [place] [address] Vlad Cesar MD 112 [facility] 110 [place], [place] [address] Social History Tobacco Use Types Packs/Day Years [...] How often do you attend chur or cheondoism services? Never 02/23/2024 Do you belong to any clubs o r organizations such as holiness groups, unions, fraternal or athletic groups, or [...] Recorded Patient Health Questionnaire-2 Score 0 06/25/2023 [facility] of Occupat ional Health - Occupational [...] any time in the past 12 m [facility], were you homeless or [...] EDT Office Visit [facility] 112 [facility] 110 [place] [address] Vlad Cesar MD 112 [facility] 110 [place] [address] 03/07/2025 11:50 AM EDT Office Visit [facility] [address] [place] [address] Narinder Rubi DPM 3006 [facility] 5 [place] [address] documented as of this encounter Visit Diagnoses Not on filedocumented in this encounter Care Teams Space And Missile Operations Relationship Specialty Start Date End Date Vlad Cesar MD 112 [place] [facility] 110 [place] [address] PCP - General Internal Medicine 10/21/22 Vlad Cesar MD 112 [place] [facility] 110 [place] [address] PCP - ACO Reach 10/31/22 documented as of this encounter
--- OUTSIDE RECORDS SUMMARY | 2024-12-20 15:27 | XMS_ITS | Encounter Summary ---
Author Organization [facility] Address [address] [place] [address] Care Team Providers Care Community Services Officer Name Role Phone Vlad Cesar MD Primary Care Provider [phone] Vlad Cesar MD Unavailable [phone] Encounter Details Date Type Department Care Team (Late st Contact Info) Description 05/19/2024 Abstract [facility] 112 [facility] 110 [place] [address] Vlad Cesar MD 112 [facility] 110 [place], [place] [address] Social History Tobacco Use Types Packs/Day Years [...] any clubs o r organizations such as rastafari groups, unions, fraternal or athletic groups, or [...] Recorded Patient Health Questionnaire-2 Score 0 06/25/2023 [facility] of Occupat ional Health - [...] place to sleep or slept in a penitentiary (including now)? No 01/12/2023 Housing Stability Vital Sign Answer Chda e Recorded In the last 12 months, was t here a time when you were not able to pay the mortgage or rent on time? No 02/23/2024 Number of Times Moved in the Last Year Not on fi le 02/23/2024 At any time in the past 12 m [facility], were you homeless or living in a penitentiary (including now)? No 02/23/2024 Comments Unknown Sex [...] [place] 112 [facility] 110 [place] [address] Vlad Cesar MD 112 [facility] 110 [place] [address] 03/07/2025 11:50 AM EDT Office Visit [facility] [address] [place] [address] Narinder Rubi DPM 3006 [facility] 5 [place] [address] documented as of this encounter Visit Diagnoses Not on filedocumented in this encounter Care Teams Community Services Officer Relationship Specialty Start Date End Date Vlad Cesar MD 112 [place] [facility] 110 [place] [address] PCP - General Internal Medicine 10/21/22 Vlad Cesar MD [address] [place] [facility] 110 [place] [address] PCP - ACO Reach 10/31/22 documented as of this encounter
--- OUTSIDE RECORDS SUMMARY | 2024-12-20 15:27 | XMS_ITS | Encounter Summary ---
Author Organization [facility] Address [address] [place] [address] Care Team Providers Care Production Underwriter Name Role Phone Vlda Cesar MD Primary Care Provider Vlad Cesar MD Unavailable [phone] Friday, Marce DOLL Unavailable [phone] Encounter Details Date Type Department Care Team (Late Contact Info) Description 11/06/2022 Clinisync Result Encounter [facility] External Department Unsolicited Vlad Cesar MD [address] [place] [address] [place] [address] Social History Tobacco Use Types [...] Upcoming Encounters Date Type Department Care Team ([facility] Contact Info) Description 12/23/2024 9:15 AM EDT Office Visit [facility] [address] [place] 110 [place] [address] Vlad Cesar MD 112 [facility] 110 [place] [address] 03/07/2025 11:50 AM EDT Office Visit [facility] POD [address] [place] [address] Narinder Rubi, DPM 3006 [facility] [place] [address] documented as of this encounter Procedures Procedure Name Priority Date/Time Associated Diagnosis Comments MG MAMM SCREEN 3D YANETH CAD 11/06/2022 11:21 AM EDT documented in this encounter Results * MG MAMM SCREEN 3D YANETH CAD (11/06/2022 11:21 AM EDT) Anatomical Region Laterality Modality Other 11/06/2022 11:2 1 AM EDT Narrative 11/06/2022 11:21 AM EDT Patient: LAURA LAWSON Exam Date: 11/06/2022 : 1950 Gender:F Ordering : DR VLAD CESAR M.D. Admission #: [id number] Family : Order #: [id number] CLICK HERE TO VIEW EXAM RADIOLOGY REPORT [...] Treatments None Family Cancers None LOCATION: [facility] BREAST COMPOSITION: Scattered areas [...] Henry Villanueva M.D. on 11/06/2022 at 16:56 Procedure Note Radiology, Radiologist, - 11/06/2022 Patient: LAURA LAWSON Exam Date: 11/06/2022 : 1950 Gender:F Ordering : DR VLAD CESAR M.D. Admission #: [id number] Family : Order #: [id number] CLICK HERE TO VIEW EXAM RADIOLOGY REPORT PROCEDURE: MAMMOGRAM SCREENING 3D BILATERAL CAD COMPARISON: MG MAMM SCREEN 3D YANETH CAD, 01/10/2021. MG MAMM SCREEN BILW CAD, 04/02/2019. MG MAMM SCREEN YANETH W CAD, 08/08/2016. DIGITIZED_MAMMO, 06/27/2005. INDICATIONS: Screening mammography Calculator Name NCI Breast Cancer Risk Assessment Tool 5 Year Breast Cancer Risk 1.90% Lifetime Breast Cancer Risk 5.90% Personal Breast Cancer No Personal Ovarian Cancer No Treatments None Family Cancers None LOCATION: [facility] BREAST COMPOSITION: Scattered areas fibroglandular density. FINDINGS: DIAGNOSTIC CATEGORY 2--BENIGN FINDING: RIGHT BREAST: No significant suspicious finding. Persistent dilatedvessels. No significant change has occurred. LEFT BREAST: No significant suspicious finding. Persistent dilatedvessels. Stable prominent axillary tail lymph node. No significant change has occurred. RECOMMENDATIONS: ROUTINE MAMMOGRAM AND CLINICAL EVALUATION IN 12 MONTHS. PLEASE NOTE: A NORMAL MAMMOGRAM DOES NOT EXCLUDE THE POSSIBILITY OFBREAST CANCER. A CLINICALLY SUSPICIOUS PALPABLE LUMP SHOULD BE BIOPSIED. Dictated by: Henry Villanueva M.D. on 11/06/2022 at 16:53 Approved by: Henry Villanueva M.D. on 11/06/2022 at 16:56 Vlad Cesar MD [facility] Final Result documented in this encounter Visit Diagnoses Not on filedocumented in this encounter Care Teams Production Underwriter Relationship Specialty Start Date End Date Vlad Cesar MD [address] [place] [address] PCP - General Internal Medicine 10/21/22 Vlad Cesar MD [address] [place] [address] [place] [address] PCP - ACO Reach 10/31/22Friday, SHARMILA Zheng [address] [place] [address] Licensed Practical Nurse Family Medicine 09/04/23 09/08/23 documented as of this encounter
--- OUTSIDE RECORDS SUMMARY | 2024-12-20 15:27 | XMS_ITS | Encounter Summary ---
Author Organization [facility] Address [address] [place] [address] Care Team Providers Care Steamfitter Apprentice Name Role Phone Vlad Cesar MD Primary Care Provider [phone] Vlad Cesar MD Unavailable [phone] Encounter Details Date Type Department Care Team (Late st Contact Info) Description 04/19/2024 Abstract [facility] 112 [facility] 110 [place] [address] Vlad Cesar MD 112 [facility] 110 [place], [place] [address] Social History Tobacco Use Types Packs/Day Years [...] How often do you attend chur or latter-day services? Never 02/23/2024 Do you belong to any clubs o r organizations such as mormonism groups, unions, fraternal or athletic groups, or [...] Recorded Patient Health Questionnaire-2 Score 0 06/25/2023 [facility] - Occupational [...] in the past 12 m [facility], were you homeless or living in [...] 9:15 AM EDT Office Visit [facility] 112 [facility] 110 [place] [address] Vlad Cesar MD 112 [facility] 110 [place] [address] 03/07/2025 11:50 AM EDT Office Visit [facility] [address] [place] [address] Narinder Rubi DPM 3006 [facility] 5 [place] [address] documented as of this encounter Visit Diagnoses Not on filedocumented in this encounter Care Teams Steamfitter Apprentice Relationship Specialty Start Date End Date Vlad Cesar MD [address] [place] [facility] 110 [place] [address] PCP - General Internal Medicine 10/21/22 Vlad Cesar MD [address] [place] [facility] 110 [place] [address] PCP - ACO Reach 10/31/22 documented as of this encounter
--- OUTSIDE RECORDS SUMMARY | 2024-12-20 15:27 | XMS_ITS | Encounter Summary ---
Author Organization [facility] Address [address] [place] [address] Care Team Providers Care Asbestos Hazard Abatement Worker Name Role Phone Vlad Cesar MD Primary Care Provider [phone] Vlad Cesar MD Unavailable [phone] Encounter Details Date Type Department Care Team (Late st Contact Info) Description 04/19/2024 Abstract [facility] 112 [facility] 110 [place] [address] Vlad Cesar MD 112 [facility] 110 [place], [place] [address] Social History Tobacco Use Types Packs/Day Years [...] any clubs o r organizations such as shinto groups, unions, fraternal or athletic groups, or [...] Recorded Patient Health Questionnaire-2 Score 0 06/25/2023 [facility] - [...] time in the past 12 m [facility], were you homeless or living [...] Office Visit [facility]ER[facility] 112 [facility] 110 [place] [address] Vlad Cesar MD 112 [facility] 110 [place] [address] 03/07/2025 11:50 AM EDT Office Visit [facility] [address] [place] [address] Narinder Rubi DPM 3006 [facility] [place] [address] documented as of this encounter Visit Diagnoses Not on filedocumented in this encounter Care Teams Asbestos Hazard Abatement Worker Relationship Specialty Start Date End Date Vlad Cesar MD 112 [facility] 110 [place] [address] PCP - General Internal Medicine 10/21/22 Vlad Cesar MD 112 [facility] 110 [place] [address] PCP - ACO Reach 10/31/22 documented as of this encounter
--- OUTSIDE RECORDS SUMMARY | 2024-12-20 15:27 | XMS_ITS | Encounter Summary ---
Author Organization [facility] Address [address] [place] [address] Care Team Providers Care Service Line Layer Name Role Phone Vlad Cesar MD Primary Care Provider Vlad Cesar MD Unavailable [phone] Friday, Marce DOLL Unavailable [phone] Encounter Details Date Type Department Care Team (Late Contact Info) Description 10/28/2022 Abstract [facility] 112 [facility] 110 [place] [address] Vlad Cesar MD 112 [facility] 110 [place], [place] [address] Social History Tobacco Use Types Packs/Day Years Used Date Smoking Tobacco: Never Assessed Tobacco Cessation:Counseling Given: Not Answered Alcohol Use Standard Drinks/Week Comments Not Asked [...] Office Visit [facility] [address] [facility] 110 [place] [address] Vlad Cesar MD [address] [address] [place] [address] 03/07/2025 11:50 AM EDT Office Visit [facility] [address] [place] [address] Narinder Rubi, DPM 3006 [facility] 5 [place] [address] documented as of this encounter Visit Diagnoses Not on filedocumented in this encounter Care Teams Service Line Layer Relationship Specialty Start Date End Date Vlad Cesar MD [address] [facility] 110 [place] [address] PCP - General Internal Medicine 10/21/22 Vlad Cesar MD [address] [facility] 110 [place] [address] PCP - ACO Reach 10/31/22Friday, SHARMILA Zheng [address] [place] [address] Licensed Practical Nurse Family Medicine 09/04/23 09/08/23 documented as of this encounter
--- OUTSIDE RECORDS SUMMARY | 2024-12-20 15:27 | XMS_ITS | Encounter Summary ---
Author Organization [facility] Address [address] [place] [address] Care Team Providers Care Health Administration Teacher Name Role Phone Vlad Cesar MD Primary Care Provider [phone] Vlad Cesar MD Unavailable Encounter Details Date Type Department Care Team (Late st Contact Info) Description 07/09/2024 Abstract [facility] 112 [facility] 110 [place] [address] Vlad Cesar MD 112 [facility] 110 [place], [place] [address] Social History Tobacco Use Types Packs/Day Years [...] How often do you attend chur or methodist services? Never 02/23/2024 Do you belong to [...] Recorded Patient Health Questionnaire-2 Score 0 06/25/2023 [facility] Occupat ional Health - Occupational [...] place to sleep or slept in a [place] facility (including now)? No 01/12/2023 Housing Stability Vital [...] were you homeless or living in a [place] (including now)? No 02/23/2024 Comments Unknown Sex [...] Office Visit [facility] SHER[facility]N [facility]A 112 [facility] 110 [place] [address] Vlda Cesar MD 112 [facility] 110 [place] [address] 03/07/2025 11:50 AM EDT Office Visit [facility] [address] [place] [address] Narinder Rubi DPM 3006 [facility] 5 [place] [address] documented as of this encounter Visit Diagnoses Not on filedocumented in this encounter Care Teams Health Administration Teacher Relationship Specialty Start Date End Date Vlad Cesar MD [address] [facility] 110 [place] [address] PCP - General Internal Medicine 10/21/22 Vlad Cesar MD [address] [facility] 110 [place] [address] PCP - ACO Reach 10/31/22 documented as of this encounter
--- OUTSIDE RECORDS SUMMARY | 2024-12-20 15:27 | XMS_ITS | Encounter Summary ---
Author Organization [facility] Address [address] [place] [address] Care Team Providers Care Medical Records Library Professor Name Role Phone Vlad Cesar MD Primary Care Provider Vlad Cesar MD Unavailable [phone] Encounter Details Date Type Department Care Team (Late st Contact Info) Description 09/07/2024 Abstract [facility] 112 [facility] 110 [place] [address] Vlad Cesar MD 112 [facility] 110 [place], [place] [address] Social History Tobacco Use Types Packs/Day Years [...] How often do you attend chur or jew services? Never 02/23/2024 Do you belong to any clubs o r organizations such as denominational groups, unions, fraternal or athletic groups, or [...] Recorded Patient Health Questionnaire-2 Score 0 09/03/2024 [facility] of Occupat ional [...] MARAVILLA 112 [facility] 110 [place] [address] Vlad Cesar MD 112 [facility] 110 [place] [address] 03/07/2025 11:50 AM EDT Office Visit [facility] [address] [place] [address] Narinder Rubi DPM 3006 [facility] 5 [place] [address] documented as of this encounter Visit Diagnoses Not on filedocumented in this encounter Care Teams Medical Records Library Professor Relationship Specialty Start Date End Date Vlad Cesar MD 112 [facility] 110 [place] [address] PCP - General Internal Medicine 10/21/22 Vlad Cesar MD 112 [facility] 110 [place] [address] PCP - ACO Reach 10/31/22 documented as of this encounter
--- OUTSIDE RECORDS SUMMARY | 2024-12-20 15:28 | XMS_ITS | Encounter Summary ---
Author Organization [facility] Address [address] [place] [address] Care Team Providers Care Hide House Supervisor Name Role Phone Vlad Cesar MD Primary Care Provider [phone] Vlad Cesar MD Unavailable [phone] Encounter Details Date Type Department Care Team (Late st Contact Info) Description 09/28/2024 Abstract [facility] 112 [facility] 110 [place] [address] Vlad Cesar MD 112 [facility] 110 [place], [place] [address] Social History Tobacco Use Types Packs/Day Years [...] Recorded Patient Health Questionnaire-2 Score 0 09/13/2024 [facility] of Occupat ional [...] Office Visit [facility] SHERLYN [place]AVILLA 112 [facility] 110 [place] [address] Vlad Cesar MD 112 [facility] 110 [place] [address] 03/07/2025 11:50 AM EDT Office Visit [facility] [address] [place] [address] Narinder Rubi DPM 3006 [facility] 5 [place] [address] documented as of this encounter Visit Diagnoses Not on filedocumented in this encounter Care Teams Hide House Supervisor Relationship Specialty Start Date End Date Vlad Cesar MD 112 [facility] 110 [place] [address] PCP - General Internal Medicine 10/21/22 Vlad Cesar MD 112 [facility] 110 [place] [address] PCP - ACO Reach 10/31/22 documented as of this encounter
--- OUTSIDE RECORDS SUMMARY | 2024-12-20 15:28 | XMS_ITS | Encounter Summary ---
Author Organization [facility] Address [address] [place] [address] Care Team Providers Care Pull Tab Dealer Name Role Phone Vlad Cesar MD Primary Care Provider [phone] Vlad Cesar MD Unavailable [phone] Encounter Details Date Type Department Care Team (Late st Contact Info) Description 09/27/2024 Abstract [facility] [address] [facility] 110 [place] [address] Vlad Cesar MD 112 [facility] 110 [place], [place] [address] Social History Tobacco Use Types Packs/Day Years [...] How often do you attend chur or baptism services? Never 02/23/2024 Do you belong to any clubs o r organizations such as restoration groups, unions, fraternal or athletic groups, or [...] Recorded Patient Health Questionnaire-2 Score 0 09/13/2024 [facility] - [...] any time in the past 12 m [facility], were you homeless or living [...] EDT Office Visit [facility] SHERLYN [place]A 112 [facility] 110 [place] [address] Vlad Cesar MD 112 [facility] 110 [place] [address] 03/07/2025 11:50 AM EDT Office Visit [facility] [address] [place] [address] Narinder Rubi DPM 3006 [facility] 5 [place] [address] documented as of this encounter Visit Diagnoses Not on filedocumented in this encounter Care Teams Pull Tab Dealer Relationship Specialty Start Date End Date Vlad Cesar MD 112 [facility] 110 [place] [address] PCP - General Internal Medicine 10/21/22 Vlad Cesar MD 112 [facility] 110 [place] [address] PCP - ACO Reach 10/31/22 documented as of this encounter
--- OUTSIDE RECORDS SUMMARY | 2024-12-20 15:28 | XMS_ITS | Encounter Summary ---
Author Organization [facility] Address [address] [place] [address] Care Team Providers Care Valver Name Role Phone Vlad Cesar MD Primary Care Provider [phone] Reason for Visit * Reason Comments Med Refill Encounter Details Date Type Department Care Team (Late st Contact Info) Description 12/10/2024 Refill [facility] [address] [place] [address] Rudy Zendejas MD 5757 [facility] 1 [facility] [place] [address] Acute systolic heart failure (CMS/HCC); 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 Social History Tobacco Use Types Packs/Day Years Used Date Smoking Tobacco: Never Smokeless Tobacco: Never Alcohol Use Standard Drinks/Week Comments Not Currently 0 (1 standard drink = 0.6 oz pur e alcohol) [facility] Utilities Answer Date Recorded In the past 12 months has [employer], gas, oil, or water [employer] threatened to shut off services in your [...] Description 01/18/2025 9:30 AM EDT Ancillary Procedure [address] [id number] 01/24/2025 11:00 AM EDT Office Visit [address] [address] Rudy Zendejas MD [address] [place] [address] [facility] [place] [address] documented as of this encounter Visit Diagnoses Diagnosis Acute systolic heart failure (CMS/HCC) Acute systolic heart failure 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
--- OUTSIDE RECORDS SUMMARY | 2024-12-20 15:28 | XMS_ITS | Encounter Summary ---
Author Organization [facility] Address [address] [place] [address] Care Team Providers Care Pig Farm Manager Name Role Phone Vlad Cesar MD Primary Care Provider Vlad Cesar MD Unavailable Encounter Details Date Type Department Care Team (Late st Contact Info) Description 09/15/2024 Abstract [facility] [address] [facility] 110 [place] [address] Vlad Cesar MD 112 [facility] 110 [place], [place] [address] Social History Tobacco Use Types Packs/Day Years [...] How often do you attend chur or druze services? Never 02/23/2024 Do you belong to [...] Recorded Patient Health Questionnaire-2 Score 0 09/13/2024 [facility] Occupat ional Health - Occupational [...] in the past 12 m [facility], were you homeless or living [...] EDT Office Visit [facility] SHERLYN [place]A 112 [facility] 110 [place] [address] Vlad Cesar MD 112 [facility] 110 [place] [address] 03/07/2025 11:50 AM EDT Office Visit [facility] [address] [place] [address] Narinder Rubi DPM 3006 [facility] 5 [place] [address] documented as of this encounter Visit Diagnoses Not on filedocumented in this encounter Care Teams Pig Farm Manager Relationship Specialty Start Date End Date Vlad Cesar MD 112 [facility] 110 [place] [address] PCP - General Internal Medicine 10/21/22 Vlad Cesar MD [address] [facility] 110 [place] [address] PCP - ACO Reach 10/31/22 documented as of this encounter
--- OUTSIDE RECORDS SUMMARY | 2024-12-20 15:28 | XMS_ITS | Encounter Summary ---
Author Organization [facility] Address [address] [place] [address] Care Team Providers Care Modern Greek Studies Professor Name Role Phone Vlad Cesar MD Primary Care Provider [phone] Vlad Cesar MD Unavailable [phone] Encounter Details Date Type Department Care Team (Late st Contact Info) Description 09/06/2024 Abstract [facility] [address] [facility] 110 [place] [address] Vlad Cesar MD 112 [facility] 110 [place], [place] [address] Social History Tobacco Use Types Packs/Day Years [...] How often do you attend chur or latter day services? Never 02/23/2024 Do you belong to any clubs o r organizations such as jewish groups, unions, fraternal or athletic groups, or [...] Recorded Patient Health Questionnaire-2 Score 0 09/03/2024 [facility] of Occupat ional Health [...] Office Visit [facility] SHERLYN MARAVILLA 112 [facility] 110 [place] [address] Vlad Cesar MD 112 [facility] 110 [place] [address] 03/07/2025 11:50 AM EDT Office Visit [facility] [address] [place] [address] Narinder Rubi DPM 3006 [facility] 5 [place] [address] documented as of this encounter Visit Diagnoses Not on filedocumented in this encounter Care Teams Modern Greek Studies Professor Relationship Specialty Start Date End Date Vlad Cesar MD 112 [facility] 110 [place] [address] PCP - General Internal Medicine 10/21/22 Vlad Cesar MD [address] [facility] [facility] 110 [place] [address] PCP - ACO Reach 10/31/22 documented as of this encounter
--- OUTSIDE RECORDS SUMMARY | 2024-12-20 15:28 | XMS_ITS | Encounter Summary ---
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) Social History Tobacco Use Types Packs/Day Years Used Date Smoking Tobacco: Never Smokeless Tobacco: Never Alcohol Use Standard Drinks/Week Comments Not Currently 0 (1 standard drink = 0.6 oz pur e alcohol) [facility] Utilities Answer Date Recorded In the past 12 months has e [employer], gas, oil, or water [employer] threatened to shut off services in your [...] in the past 12 m [facility], were you homeless or living in a [...] Description 01/18/2025 9:30 AM EDT Ancillary Procedure [address] [address] 01/24/2025 11:00 AM EDT Office Visit [address] [address] Rudy Zendejas MD 5757 [facility] [place] 1 [facility] [place] [address] Scheduled Orders Name Type Priority Associated Diagnoses [...] Primary documented in this encounter Care Teams Dev Technical Mgr Relationship Specialty Start Date End Date Vlad Cesar MD [address] [address] PCP - General 08/19/22 documented as of this encounter
--- OUTSIDE RECORDS SUMMARY | 2024-12-20 15:28 | XMS_ITS | Encounter Summary ---
Author Organization [facility] Address [address] [place] [address] Care Team Providers Care Sheriff Sergeant Name Role Phone Vlad Cesar MD Primary Care Provider [phone] Vlad Cesar MD Unavailable [phone] Encounter Details Date Type Department Care Team (Late st Contact Info) Description 08/09/2024 Abstract [facility] [address] [facility] [facility] 110 [place] [address] Vlad Cesar MD 112 [facility] 110 [place], [place] [id number] Social History Tobacco Use Types Packs/Day Years [...] How often do you attend chur or evangelical services? Never 02/23/2024 Do you belong to any clubs o r organizations such as confucianism groups, unions, fraternal or athletic groups, or [...] any time in the past 12 m [facility], were you homeless or living in a [...] 112 [facility] 110 [place] [address] Vlad Cesar MD 112 [facility] 110 [place] [address] 03/07/2025 11:50 AM EDT Office Visit [facility] [address] [place] [address] Narinder Rubi DPM 3006 [facility] 5 [place] [address] documented as of this encounter Visit Diagnoses Not on filedocumented in this encounter Care Teams Sheriff Sergeant Relationship Specialty Start Date End Date Vlad Cesar MD 112 [facility] 110 [place] [address] PCP - General Internal Medicine 10/21/22 Vlad Cesar MD 112 [facility] 110 [place] [address] PCP - ACO Reach 10/31/22 documented as of this encounter
--- OUTSIDE RECORDS SUMMARY | 2024-12-20 15:28 | XMS_ITS | Encounter Summary ---
Author Organization [facility] Address [address] [place] [address] Care Team Providers Care Slab Lifting Engineer Name Role Phone Vlad Cesar MD Primary Care Provider [phone] Vlad Cesar MD Unavailable [phone] Encounter Details Date Type Department Care Team (Late st Contact Info) Description 09/27/2024 Abstract [facility] [address] [place] 110 [place] [address] Vlad Cesar MD 112 [facility] 110 [place], [place] [phone] Social History Tobacco Use Types Packs/Day Years [...] How often do you attend chur or restorationism services? Never 02/23/2024 Do you belong to any clubs o r organizations such as judaism groups, unions, fraternal or athletic groups, or [...] Recorded Patient Health Questionnaire-2 Score 0 09/13/2024 [facility] ional Health - Occupational [...] any time in the past 12 m [facility], were you homeless or living [...] EDT Office Visit [facility] [place] 112 [facility] 110 [place] [address] Vlad Cesar MD 112 [facility] 110 [place] [address] 03/07/2025 11:50 AM EDT Office Visit [facility] [address] [place] [address] Narinder Rubi DPM 3006 [facility] 5 [place] [address] documented as of this encounter Visit Diagnoses Not on filedocumented in this encounter Care Teams Slab Lifting Engineer Relationship Specialty Start Date End Date Vlad Cesar MD 112 [facility] 110 [place] [address] PCP - General Internal Medicine 10/21/22 Vlad Cesar MD 112 [facility] 110 [place] [address] PCP - ACO Reach 10/31/22 documented as of this encounter
--- OUTSIDE RECORDS SUMMARY | 2024-12-20 15:28 | XMS_ITS | Encounter Summary ---
Author Organization [facility] Address [address] [place] [address] Care Team Providers Care Master Technician Name Role Phone Vlad Cesar MD Primary Care Provider [phone] Vlad Cesar MD Unavailable [phone] Encounter Details Date Type Department Care Team (Late st Contact Info) Description 08/09/2024 Abstract [facility] [address] [facility] [facility] 110 [place] [address] Vlad Cesar MD 112 [facility] 110 [place], [place] [address] Social History Tobacco Use Types Packs/Day Years [...] How often do you attend chur or denominational services? Never 02/23/2024 Do you belong to any clubs o r organizations such as synagogue groups, unions, fraternal or athletic groups, or [...] Recorded Patient Health Questionnaire-2 Score 0 06/25/2023 [facility] Occupat ional Health - [...] EDT Office Visit [facility] [place] [place] 112 [facility] 110 [place] [address] Vlad Cesar MD 112 [facility] 110 [place] [address] 03/07/2025 11:50 AM EDT Office Visit [facility] [address] [place] [address] Narinder Rubi DPM 3006 [facility] 5 [place] [address] documented as of this encounter Visit Diagnoses Not on filedocumented in this encounter Care Teams Master Technician Relationship Specialty Start Date End Date Vlad Cesar MD 112 [facility] 110 [place] [address] PCP - General Internal Medicine 10/21/22 Vlad Cesar MD 112 [facility] 110 [place] [address] PCP - ACO Reach 10/31/22 documented as of this encounter
--- OUTSIDE RECORDS SUMMARY | 2024-12-20 15:28 | XMS_ITS | Encounter Summary ---
Author Organization [facility] Address [address] [place] [address] Care Team Providers Care Press Brake Operator Name Role Phone Vlad Cesar MD Primary Care Provider [phone] Encounter Details Date Type Department Care Team (Latest Contact Info) Description 12/13/2024 Travel Social History Tobacco Use Types Packs/Day Years Used Date Smoking Tobacco: Never Smokeless Tobacco: Never Alcohol Use Standard Drinks/Week Comments Not Currently 0 (1 standard drink = 0.6 oz pur e alcohol) [facility] Utilities Answer Date Recorded In the past [...] any time in the past 12 m [facility], were you homeless or living in a fpc (including now)? No 04/21/2024 Hunger Vital Sign [...] Description 01/18/2025 9:30 AM EDT Ancillary Procedure [address] [address] 01/24/2025 11:00 AM EDT Office Visit [address] [address] Rudy Zendejas MD 5757 [facility] 1 [facility] [place] [address] documented as of this encounter Visit Diagnoses Not on filedocumented in this encounter Care Teams Press Brake Operator Relationship Specialty Start Date End Date Vlad Cesar MD [address] [place] [address] [place] [address] PCP - General 08/19/22 documented as of this encounter
--- OUTSIDE RECORDS SUMMARY | 2024-12-20 15:28 | XMS_ITS | Encounter Summary ---
Author Organization [facility] Address [address] [place] [address] Care Team Providers Care Managed Services Consultant Name Role Phone Vlad Cesar MD Primary Care Provider [phone] Vlad Cesar MD Unavailable [phone] Encounter Details Date Type Department Care Team (Late st Contact Info) Description 08/17/2024 Abstract [facility] [address] [facility] 110 [place] [address] Vlad Cesar MD 112 [facility] 110 [place], [place] [address] Social History Tobacco Use Types Packs/Day Years [...] How often do you attend chur or mandaeism services? Never 02/23/2024 Do you belong to [...] EDT Office Visit [facility] [place] 112 [facility] 110 [place] [address] Vlad Cesar MD 112 [facility] 110 [place] [address] 03/07/2025 11:50 AM EDT Office Visit [facility] [address] [place] [address] Narinder Rubi DPM 3006 [facility] 5 [place] [address] documented as of this encounter Visit Diagnoses Not on filedocumented in this encounter Care Teams Managed Services Consultant Relationship Specialty Start Date End Date Vlad Cesar MD 112 [facility] 110 [place] [address] PCP - General Internal Medicine 10/21/22 Vlad Cesar MD 112 [facility] 110 [place] [address] PCP - ACO Reach 10/31/22 documented as of this encounter
--- OUTSIDE RECORDS SUMMARY | 2024-12-20 15:28 | XMS_ITS | Encounter Summary ---
Author Organization [facility] Address [address] [place] [address] Care Team Providers Care Phy Therapist Name Role Phone Vlad Cesar MD Primary Care Provider [phone] Vlad Cesar MD Unavailable [phone] Encounter Details Date Type Department Care Team (Late st Contact Info) Description 10/11/2024 Abstract [facility] 112 [facility] 110 [place] [address] Vlad Cesar MD 112 [facility] 110 [place], [place] [id number] Social History Tobacco Use Types Packs/Day Years [...] How often do you attend chur or religion services? Never 02/23/2024 Do you belong to any clubs o r organizations such as congregational groups, unions, fraternal or athletic groups, or [...] Recorded Patient Health Questionnaire-2 Score 0 10/13/2024 [facility] of Occupat [...] any time in the past 12 m [facility], were you homeless or living in [...] pleasure in doing things Not at all 10/13/2024 12:06 PM OLIVER SANDY Feeling down, depressed, or hopeless Not at all 12/2024 12:06 PM OLIVER SANDY Patient Health Questionnaire-2 Score 0 12/2024 12:06 PM EDT JACEK, OLIVER documented as of this encounter Plan of Treatment Upcoming Encounters Date Type Department Care Team (Late st Contact Info) Description 12/23/2024 9:15 AM EDT Office Visit [facility] [address] [facility] 110 [place] [address] Vlad Cesar MD 112 [facility] 110 [place] [address] 03/07/2025 11:50 AM EDT Office Visit [facility] [address] [place] [address] Narinder Rubi, DPM 3006 [facility] 5 [place] [address] documented as of this encounter Visit Diagnoses Not on filedocumented in this encounter Care Teams Phy Therapist Relationship Specialty Start Date End Date Vlad Cesar MD 112 [facility] 110 [place] [address] PCP - General Internal Medicine 10/21/22 Vlad Cesar MD 112 [facility] 110 [place] [address] PCP - ACO Reach 10/31/22 documented as of this encounter
--- OUTSIDE RECORDS SUMMARY | 2024-12-20 15:28 | XMS_ITS | Encounter Summary ---
Author Organization [facility] Address [address] [place] [address] Care Team Providers Care Cement Sprayer Helper Name Role Phone Vlad Cesar MD Primary Care Provider [phone] Vlad Cesar MD Unavailable [phone] Encounter Details Date Type Department Care Team (Late st Contact Info) Description 09/06/2024 Abstract [facility] [address] [facility] [facility] 110 [place] [address] Vlad Cesar MD 112 [facility] 110 [place], [place] [phone] Social History Tobacco Use Types Packs/Day Years [...] any clubs o r organizations such as yazidi groups, unions, fraternal or athletic groups, or [...] Recorded Patient Health Questionnaire-2 Score 0 09/03/2024 [facility] of Occupat ional Health - Occupational [...] place to sleep or slept in a long-term (including now)? No 01/12/2023 Housing Stability Vital Sign Answer Chad e Recorded In the last 12 months, was t here a time when you were not able to pay the mortgage or rent on time? No 02/23/2024 Number of Times Moved in the Last Year Not on fi le 02/23/2024 At any time in the past 12 m [facility], were you homeless or living in a long-term (including now)? No 02/23/2024 Comments Unknown Sex [...] [place] 112 [facility] 110 [place] [address] Vlad Cesar MD 112 [facility] 110 [place] [address] 03/07/2025 11:50 AM EDT Office Visit [facility] [address] [place] [address] Narinder Rubi DPM 3006 [facility] 5 [place] [address] documented as of this encounter Visit Diagnoses Not on filedocumented in this encounter Care Teams Cement Sprayer Helper Relationship Specialty Start Date End Date Vlad Cesar MD 112 [facility] 110 [place] [address] PCP - General Internal Medicine 10/21/22 Vlad Cesar MD 112 [facility] 110 [place] [address] PCP - ACO Reach 10/31/22 documented as of this encounter
--- OUTSIDE RECORDS SUMMARY | 2024-12-20 15:28 | XMS_ITS | Clinical Summary ---
Author Organization [facility] Address [address] [place] [address] Care Team Providers Care Team Primary Care Physician Name Role Phone Vlad Cesar MD Primary Care Provider [phone] Allergies Active Allergy Reactions Criticality Noted Date [...] tabletIndications :Acute systolic heart failure (CMS/HCC),CAD in [place] artery Take 0.5 tablets (12.5 mg) by mouth once daily as directed. 90 tablet 1 025 Active doxycycline (Monodox) 100 mg capsuleIndication s:Cardiomyopathy (CMS/HCC) Take 1 capsule (100 mg) by mouth two times daily for 10 days. Take with at least 8 ounces (large glass) of water, do not lie down for 30 minutes after 20 capsule 025 2024 Active levoFLOXacin (Levaquin) 750 mg tablet Take 1 tablet by mouth in the morning. Active spironolactone (Aldactone) 25 mg tabletIndications :Acute systolic heart failure (CMS/HCC),CAD in [place] artery Take 1 tablet (25 mg) by [...] daily. 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 Mild mitral regurgitation 07/09/2024 Cognitive communication deficit 07/08/2024 Dysphagia, oral phase 07/08/2024 Muscle weakness (generalized) 06/17/2024 Acquired absence of both cervix and uterus 06/14 Acute cystitis without hematuria 06/14/2024 Carpal tunnel syndrome, left upper limb 06/14/19 25 Cervicalgia 06/14/2024 Chronic kidney disease, stage 3a [...] failure 10/09/2023 Coronary artery disease invo lving pit river coronary artery of [place] heart with other form of angina pectoris 10/08/2023 Coronary artery disease 09/26/2023 CAD in [place] artery 09/09/2023 Pericardial effusion 08/05/2023 History of [...] 10/28/2022 07/31/2023 Coronary artery disease (CAD) excluded 07/31/2023 GERD (gastroesophageal reflux disease) 07/31/2023 Hyperlipidemia 10/15/2022 07/31/2023 Thyroid disease 10/15/2022 [...] Hyperglycemia due to type 2 diabetes mellitus senior living current use of insulin 07/12/2015 Uric acid [...] Encounters Date Type Department Care Team Description 12/20/2024 2:40 PM EDT Office Visit [facility] [place] [address] [place] [address] Dennis Gilmore CNP S/P placement of cardiac pacemaker (Primary Dx); Bilateral lower extremity edema; Chronic systolic heart failure (CMS/HCC); Coronary artery disease involving pit [place] coronary artery of [place] heart with other form of angina pectoris; Paroxysmal atrial fibrillation (CMS/HCC); Heart disease, hypertensive, with heart failure (CMS/HCC); Mixed hyperlipidemia 12/13/2024 11:30 AM EDT - 12/13/2024 2:30 PM EDT Surgery [facility] [address] [place] [address] Gerardo Morris MD Implant ICD - biventricular 12/13/2024 9:54 AM EDT - 12/13/2024 4:33 PM EDT Hospital Encounter [facility] [address] [place] [address] Gerardo Morris MD Cardiomyopathy (CMS/HCC) (Primary Dx); Cardiomyopathy, unspecified type (CMS/HCC) Discharge Disposition: Home or Self Care () 12/13/2024 Orders Only [facility] [address] [place] [address] Florencia Hendricks, RN Presence of automatic (implantable) cardiac defibrillator (Primary Dx) 12/13/2024 Travel 12/10/2024 Refill [place] [address] [place] [address] Rudy Zendejas MD Acute systolic heart failure (CMS/HCC); CAD in [place] artery 12/06/2024 Orders Only [facility] [address] [place] [address] Indiaan Wren RN Chronic systolic heart failure (CMS/HCC) (Primary Dx) 12/01/[address] [address] Nkechi Armenta MA 11/17/2024 Orders Only [address] [address] Nkechi Armenta MA NSTEMI (non-ST elevated myocardial infarction) (CMS/HCC) 11/09/2024 1:15 PM EDT Office Visit [address] [place] [address] Gerardo Morris MD Chronic HFrEF (heart failure with reduced ejection fraction) (CMS/HCC); Cardiomyopathy, unspecified type (CMS/HCC) 11/09/2024 Orders Only [address] [place] [address] Nkechi Armenta MA Cardiomyopathy, unspecified type (CMS/HCC) 10/28/[address] [address] Tamie San CNP Hyperlipidemia, unspecified hyperlipidemia type 10/27/[address] [address] Vandana Medina MA from Last 3 Months Family History Medical History Relation Name Comments Heart attack Father JABARI disease Mother Relation Name Status Comments Father Mother Social History Tobacco Use Types Packs/Day Years Used Date Smoking Tobacco: Never Smokeless Tobacco: Never Tobacco Cessation:Counseling Given: Not Answered Alcohol Use Standard Drinks/Week Comments Not Currently 0 (1 standard drink = 0.6 oz pur e alcohol) [facility] Utilities Answer Date Recorded In the past 12 months has [employer], gas, oil, or water [employer] threatened to shut off services in your [...] any time in the past 12 m [facility], were you homeless or living [...] Pulse 70 12/20/2024 2:47 PM EDT Temperature 36.3 C (97.4 F) 04/22/2024 12:23 PM EST Respiratory Rate 19 12/13/2024 4:00 PM EDT Oxygen Saturation 98% 12/20/2024 2:47 PM EDT Inhaled Oxygen Concentration - - Weight 92.5 kg (204 lb) 12/20/2024 2:47 PM EDT Height 157.5 cm (5' 2 ) 12/20/2024 2:47 PM EDT Body Mass Index 37.31 12/20/2024 2:47 PM EDT Plan of Treatment Upcoming Encounters Date Type Department Care Team (Late st Contact Info) Description 01/18/2025 9:30 AM EDT Ancillary Procedure [facility] [address] [place] [address] 01/24/2025 11:00 AM EDT Office Visit [facility] [address] [facility] [place] [address] Rudy Zendejas MD [address] [place] [address] [facility] [place] [address] Health Maintenance Due Date Last Done Comments CT Colonography 1952 Colonoscopy 1952 Colorectal Cancer Screening 1952 FIT-DNA 1952 FIT 1952 FOBT 1952 Medicare Annual Wellness (AWV) 1952 Sigmoidoscopy 1952 Diabetes: Retinopathy Screening 1962 Depression Screening 1964 Pneumococcal Vaccine: 50+ Years (1 of 2 - PCV) 11/24/1971 Adult Tetanus 1974 Mammogram 1992 Zoster Vaccines (1 of 2) 2002 COVID-19 Vaccine (1 - 2023-2 5 season) 2024 Diabetes: Hemoglobin A1C 07/20/2024 [...] this topic Meningococcal Vaccine Aged Out No setphen jabari eligible based on patient's age to complete this topic Rotavirus Vaccines Aged Out No longer eligible based on patient's age to complete this topic Medical Devices Implanted Type Area Cake Decorator Device Identifier Shelf Expiration Date Model / Serial / Lot Stent,Synergy Mr 3.00 X 38 - [id number] Implanted:Qty : 1 on 10/08/2023 by Rudy Zendejas MD at [facility] Drug Eluting Stent [employer] [id number] 04/27/2025 [id number] / / [id number] Stent,Synergy Mr 3.00 X 32 - [id number] Implanted:Qty : 1 on 10/08/2023 by Rudy Zendejas MD at [facility] Drug Eluting Stent [employer] [id number] 06/12/2025 [id number] / / [id number] Defib,Cardiac ,Dual,Dr Malone Df4 - [id number] - [id number] Implanted:Qty : 1 on 12/13/2024 by Gerardo Morris MD at [facility] ICD N/A: Chest [employer] [id number] 10/06/2026 [id number] / [id number] / Pamira S 60 Implanted:Qty : 1 on 12/13/2024 by Gerardo Morris MD at [facility] Lead Left: Heart [employer] [id number] 08/06/2026 [id number] / [id number] / Lead,Solia,S 45 - [id number] - [id number] Implanted:Qty : 1 on 12/13/2024 by Gerardo Morris MD at [facility] Lead Left: Heart [employer] [id number] 10/06/2026 [id number] / [id number] / Stent,Synergy Carlos,Marcos 3.5x28m - [id number] Implanted:Qty : 1 on 10/08/2023 by Rudy Zendejas MD at [facility] Stent [employer] [id number] 02/10/2025 [id number] / / [id number] Procedures Procedure Name Priority Date/Time Associated Diagnosis [...] of2 resultswithin the time period is included. Pathologist [facility] Ventricular Rate 82 BPM GE MUSE Atrial Rate 82 BPM GE MUSE NJ Interval 166 ms GE MUSE QRS DURATION 174 ms GE MUSE QT Interval 452 ms GE MUSE QTC CALCULATION(BAZE TT) 528 ms GE MUSE P [place] 68 degrees GE MUSE R-[place] 159 degrees GE MUSE T Wave [place] 4 degrees GE MUSE 12/13/2024 2:46 PM [...] YARELI Velazquez (59) on 12/13/2024 4:39:46 PM us Gerardo Morris MD ECG ORDERABLES Final Result IRAIS TANG * IMPLANT ICD - BIV (12/13/2024 2:07 [...] using modified seldinger technique using a 5 Armenian micro-puncture needle on two occasions and 0.35 [...] for the device above the muscle. 6 Armenian Safesheaths were placed over the wire. Since [...] lead position on orthogonal views (MATTSON and FINNISH) to confirm septal position, the screw was [...] lead position on orthogonal views (MATTSON and FINNISH), the screw was activated. Good sensing parameters, [...] any concerns. Gerardo Morris MD Cardiac Electrophysiology Gerardo Morris MD CV ELECTROPHYSIOLOGY PROCEDURES Edited Result - Final * ECG 12 lead unit performed (11/09/2024 2:14 PM EDT) Gerardo Morris MD ECG ORDERABLES Final Result * (ABNORMAL) Hemoglobin A1c (04/19/2024 6:02 AM EST) Hemoglobin A1C 9.7(H) 4.0 - 6.0 % 04/20/2024 8:20 AM EST [facility] ([facility]) Estimated Average Glucose 232 mg/dL 04/20/2024 8:20 AM EST [facility] ([facility]) Blood Venous blood specimen / Unknown Arterial Line / Unknown 04/19/2024 6:02 AM EST 04/19/2024 6:09 AM EST Joshua Segal MD LAB BLOOD ORDERABLES Final Re sult [facility] ([facility]) [address] [place], [place] [id number] from Last 3 Months or Most Recently [...] 11:57 PM 07/07/2023 3:26 PM Care Teams Team Primary Care Physician Relationship Specialty Start Date End Date Vlad Cesar MD [address] [address] PCP - General 08/19/22
--- OUTSIDE RECORDS SUMMARY | 2024-12-20 15:28 | XMS_ITS | Encounter Summary ---
Author Organization [facility] Address [address] [place] [address] Care Team Providers Care Engraver Set Up Operator Name Role Phone Vlad Cesar MD Primary Care Provider [phone] Encounter Details Date Type Department Care Team (Late st Contact Info) Description 12/01/[address] [facility] Heart [facility] [address] [place] [address] Nkechi Armenta MA Social History Tobacco Use Types Packs/Day Years Used Date Smoking Tobacco: Never Smokeless Tobacco: Never Alcohol Use Standard Drinks/Week Comments Not Currently 0 (1 standard drink = 0.6 oz pur e alcohol) [facility] Utilities Answer Date Recorded In the past [...] any time in the past 12 m ont, were you homeless or living in a [place] (including now)? No 04/21/2024 Hunger Vital Sign [...] Description 01/18/2025 9:30 AM EDT Ancillary Procedure [place] [address] [place] [address] 01/24/2025 11:00 AM EDT Office Visit [address] [id number] Rudy Zendejas MD [address] [facility] [place] [place] [address] documented as of this encounter Visit Diagnoses Not on filedocumented in this encounter Care Teams Engraver Set Up Operator Relationship Specialty Start Date End Date Vlad Cesar MD 112 [facility] 110 [place] [address] PCP - General 08/19/22 documented as of this encounter
--- OUTSIDE RECORDS SUMMARY | 2024-12-20 15:28 | XMS_ITS | Encounter Summary ---
Author Organization [facility] Address [address] [place] [address] Care Team Providers Care Assignment Officer Name Role Phone Vlad Cesar MD Primary Care Provider [phone] Vlad Cesar MD Unavailable [phone] Encounter Details Date Type Department Care Team (Late st Contact Info) Description 10/12/2024 Abstract [facility] 112 [facility] 110 [place] [address] Vlad Cesar MD 112 [facility] 110 [place], [place] [id number] Social History Tobacco Use Types Packs/Day Years [...] any clubs o r organizations such as caodaism groups, unions, fraternal or athletic groups, or [...] Recorded Patient Health Questionnaire-2 Score 0 10/13/2024 [facility] of Occupat ional Health - [...] place to sleep or slept in a skilled nursing (including now)? No 01/12/2023 Housing Stability Vital [...] were you homeless or living in a skilled nursing (including now)? No 02/23/2024 Comments Unknown Sex [...] Office Visit [facility] 112 [facility] 110 [place] [address] Vlad Cesar MD 112 [facility] 110 [place] [address] 03/07/2025 11:50 AM EDT Office Visit [facility] [address]006 [place] [address] Narinder Rubi, DPM 3006 [facility] 5 [place] [address] documented as of this encounter Visit Diagnoses Not on filedocumented in this encounter Care Teams Assignment Officer Relationship Specialty Start Date End Date Vlad Cesar MD 112 [facility] 110 [place] [address] PCP - General Internal Medicine 10/21/22 Vlad Cesar MD 112 [facility] 110 [place] [address] PCP - ACO Reach 10/31/22 documented as of this encounter
--- OUTSIDE RECORDS SUMMARY | 2024-12-20 15:28 | XMS_ITS | Encounter Summary ---
Author Organization [facility] Address [address] [place] [place] [address] Care Team Providers Care Offal Icer Poultry Name Role Phone Vlad Cesar MD Primary Care Provider [phone] Encounter Details Date Type Department Care Team (Late st Contact Info) Description 12/06/2024 Orders Only [facility] Vascular Lab [address] [place] [address] [place], lithoduplicator operator systolic heart failure (CMS/HCC) (Primary Dx) Social History Tobacco Use Types Packs/Day Years Used Date Smoking Tobacco: Never Smokeless Tobacco: Never Alcohol Use Standard Drinks/Week Comments Not Currently 0 (1 standard drink = 0.6 oz pur e alcohol) [facility] Utilities Answer Date Recorded In the past 12 months has e electric, gas, oil, or water [employer] threatened to shut off services in your [...] time in the past 12 m [facility], were you homeless or living in a fci (including now)? No 04/21/2024 Hunger Vital Sign [...] Description 01/18/2025 9:30 AM EDT Ancillary Procedure [address] [address] 01/24/2025 11:00 AM EDT Office Visit [address] [address] Rudy Zendejas MD 5757 [facility] [address] 1 [facility] [place] [address] Scheduled Orders Name Type Priority Associated Diagnoses Orde r Schedule CBC Lab Routine Chronic systolic heart failure (CMS/HCC) Expected: 12/06/2024 (Approximate), Expires: 12/06/2025 Basic metabolic panel Lab Routine Chronic systolic heart failure (CMS/HCC) Expected: 12/06/2024 (Approximate), Expires: 12/06/2025 documented as of this encounter Visit Diagnoses Diagnosis Chronic systolic heart failure (CMS/[facility])- Primary Chronic systolic heart failure documented in this encounter Care Teams Offal Icer Poultry Relationship Specialty Start Date End Date Vlad Cesar MD 112 [facility] 110 [place] [address] PCP - General 08/19/22 documented as of this encounter
--- OUTSIDE RECORDS SUMMARY | 2024-12-20 15:28 | XMS_ITS | Encounter Summary ---
Author Organization [facility] Address [address] [place] [address] Care Team Providers Care Sales Service Rep Name Role Phone Vlad Cesar MD Primary Care Provider [phone] Vlad Cesar MD Unavailable [phone] Encounter Details Date Type Department Care Team (Late st Contact Info) Description 08/18/2024 Abstract [facility] [address] [facility] 110 [place] [address] Vlad Cesar MD 112 [facility] 110 [place], [place] [address] Social History Tobacco Use Types Packs/Day Years [...] How often do you attend chur or jehovah's witness services? Never 02/23/2024 Do you belong to any clubs o r organizations such as moravian groups, unions, fraternal or athletic groups, or [...] Recorded Patient Health Questionnaire-2 Score 0 06/25/2023 [facility] of Occupat ional Health - Occupational Stress [...] place to sleep or slept in a jail (including now)? No 01/12/2023 Housing Stability Vital Sign Answer Chad e Recorded In the last 12 months, was t here a time when you were not able to pay the mortgage or rent on time? No 02/23/2024 Number of Times Moved in the Last Year Not on fi le 02/23/2024 At any time in the past 12 m [facility], were you homeless or living in a jail (including now)? No 02/23/2024 Comments Unknown Sex [...] SHERLYN MARAVILLA 112 [facility] 110 [place] [address] Vlad Cesar MD 112 [facility] 110 [place] [address] 03/07/2025 11:50 AM EDT Office Visit [facility] [address] [place] [address] Narinder Rubi DPM 3006 [facility] 5 [place] [address] documented as of this encounter Visit Diagnoses Not on filedocumented in this encounter Care Teams Sales Service Rep Relationship Specialty Start Date End Date Vlad Cesar MD 112 [facility] 110 [place] [address] PCP - General Internal Medicine 10/21/22 Vlad Cesar MD 112 [facility] 110 [place] [address] PCP - ACO Reach 10/31/22 documented as of this encounter
--- OUTSIDE RECORDS SUMMARY | 2024-12-20 15:29 | XMS_ITS | Encounter Summary ---
Author Organization [facility] Address [address] [place] [address] Care Team Providers Care Labels Molder Name Role Phone Vlad Cesar MD Primary Care Provider [phone] Vlad Cesar MD Unavailable [phone] Encounter Details Date Type Department Care Team (Late st Contact Info) Description 12/15/2024 Clinisync Result Encounter [facility] External Department Unsolicited [...] often do you attend chur ch or jew services? Never 02/23/2024 Do you belong to any clubs o r organizations such as anabaptism groups, unions, fraternal or athletic groups, or [...] Recorded Patient Health Questionnaire-2 Score 0 10/13/2024 [facility] - Occupational Stress Questionnaire Answer Date Recorded [...] EDT Office Visit [facility] 112 [facility] 110 [place] [address] Vlad Cesar MD 112 [facility] 110 [place], [place] [address] 03/07/2025 11:50 AM EDT Office Visit [facility] 3006 [place] [address] Narinder Rubi DPM 3006 [facility] 5 [place] [address] documented as of this encounter Procedures Procedure Name Priority Date/Time Associated Diagnosis Comments ITP 12/15/2024 9:41 AM EDT documented in this encounter Results * ITP (12/15/2024 9:41 AM EDT) Anatomical Region Laterality Modality Other 12/15/2024 9:41 AM EDT Narrative 12/15/2024 10:12 [place] [address] Cardiac Rehab Report Signed Patient: LAURA LAWSON MR#: [id number] : 1950 Acct:[id number] Age/Sex: 74 / F ADM Date: 12/09/24 Loc: CR Attending Dr: Gerardo Morris M.D. Ordering Physician: Jorje Camarillo D.O. Date of Service: 12/15/24 Procedure(s): ITP Accession Number(s): [id number] cc: [facility] Test Date: 2024-12-15 Pat Name: LAURA LAWSON Department: Room: - Gender: Female Route Delivery Service Driver: : 1950 Requested By: Jorje Camarillo Order Number: [id number] Veronica MD: Jorje Camarillo Interpretive Statements Patient appears disinterested in contributing to her own health. She is encouraged to participate in cardiac rehabilitation and be compliant with cardiology recommendations, especially regarding diet and fluid restrictions. Electronically Signed On 12-15-2024 10:11:58 EDT by Jorje Camarillo Dictated By: Jorje Camarillo D.O. Signed By: 12/15/24 1012 12/15/24 1012 DD/ TD/TT: Construction Producer: Procedure Note Radiology, Radiologist, - 12/15/2024 [place] [address] Cardiac Rehab Report Signed Patient: LAURA LAWSON AMR#: [id number] : 1950cct:[id number] Age/Sex: 74 / FADM Date: 12/09/24 Loc: CR Attending Dr: Gerardo Morris M.D. Ordering Physician: Jorje Camarillo D.O. Date of Service: 12/15/24 Procedure(s): ITP Accession Number(s): [id number] cc: [facility] Test Date: 2024-12-15 Pat Name: LAURA LAWSON Department: Room: - Gender: Female Route Delivery Service Driver: : 1950 Requested By: Jorje Camarillo Order Number: [id number] Reading MD: Jorje Camarillo Interpretive Statements Patient appears disinterested in contributing to her own health. She is encouraged to participate in cardiac rehabilitation and be compliant with cardiology recommendations, especially regarding diet and fluidrestrictions. Electronically Signed On 12-15-2024 10:11:58 EDT by Jorje Camarillo Dictated By: Jorje Camarillo D.O. Signed By:12/15/24 1012 12/15/24 1012 DD/ 0941 TD/TT: Construction Producer: us Generic External Data Provider [facility] Final Result documented in this encounter Visit Diagnoses Not on filedocumented in this encounter Care Teams Labels Molder Relationship Specialty Start Date End Date Vlad Cesar MD [address] [facility] 110 [place] [address] PCP - General Internal Medicine 10/21/22 Vlad Cesar MD [address] [facility] 110 [place] [address] PCP - ACO Reach 10/31/22 documented as of this encounter
--- OUTSIDE RECORDS SUMMARY | 2024-12-20 15:29 | XMS_ITS | Encounter Summary ---
Author Organization [facility] Address [address] [place] [address] Care Team Providers Care Military Science Instructor Name Role Phone Vlad Cesar MD Primary Care Provider [phone] Vlad Cesar MD Unavailable [phone] Encounter Details Date Type Department Care Team (Late st Contact Info) Description 12/07/2024 Alexeyboo flowsheet [facility] 3006 [place] [address] Narinder Rubi, DPM [address] [address] Social History Tobacco Use Types Packs/Day Years [...] any clubs o r organizations such as yarsani groups, unions, fraternal or athletic groups, or [...] Recorded Patient Health Questionnaire-2 Score 0 10/13/2024 [facility] of Occupat ional Health - Occupational Stress [...] any time in the past 12 m [facility], were you homeless or living in [...] Office Visit [facility] SHERLYN [place]AVILLA 112 [facility] 110 [place] [address] Vlad Cesar MD 112 [facility] 110 [place] [address] 03/07/2025 11:50 AM EDT Office Visit [facility] [address] [place] [address] Narinder Rubi, MICHELLEM 3006 [facility] 5 [place] [address] documented as of this encounter Visit Diagnoses Not on filedocumented in this encounter Care Teams Military Science Instructor Relationship Specialty Start Date End Date Vlad Cesar MD 112 [facility] 110 [place] [address] PCP - General Internal Medicine 10/21/22 Vlad Cesar MD 112 [facility] 110 [place] [address] PCP - ACO Reach 10/31/22 documented as of this encounter
--- OUTSIDE RECORDS SUMMARY | 2024-12-20 15:29 | XMS_ITS | Encounter Summary ---
Author Organization [facility] Address [address] [place] [address] Care Team Providers Care Fiberglass Product Tester Name Role Phone Vlad Cesar MD Primary Care Provider [phone] Vlad Cesar MD Unavailable [phone] Encounter Details Date Type Department Care Team (Late st Contact Info) Description 11/09/2024 Abstract [facility] 112 [facility] 110 [place] [address] Vlad Cesar MD 112 [facility] 110 [place], [place] [address] Social History Tobacco Use Types Packs/Day Years [...] How often do you attend chur or orthodox services? Never 02/23/2024 Do you belong to any clubs o r organizations such as voodoo groups, unions, fraternal or athletic groups, or [...] Recorded Patient Health Questionnaire-2 Score 0 10/13/2024 [facility] of Occupat ional Health - Occupational Stress [...] EDT Office Visit [facility] SHERLYN MARAVILLA 112 [facility] 110 [place] [address] Vlad Cesar MD 112 [facility] 110 [place] [address] 03/07/2025 11:50 AM EDT Office Visit [facility] [address] [place] [address] Narinder Rubi DPM 3006 [facility] 5 [place] [address] documented as of this encounter Visit Diagnoses Not on filedocumented in this encounter Care Teams Fiberglass Product Tester Relationship Specialty Start Date End Date Vlad Cesar MD 112 [facility] 110 [place] [address] PCP - General Internal Medicine 10/21/22 Vlad Cesar MD 112 [facility] 110 [place] [address] PCP - ACO Reach 10/31/22 documented as of this encounter
--- OUTSIDE RECORDS SUMMARY | 2024-12-20 15:29 | XMS_ITS | Encounter Summary ---
Author Organization [facility] Address [address] [place] [address] Care Team Providers Care Manager Center Name Role Phone Vlad Cesar MD Primary Care Provider [phone] Vlad Cesar MD Unavailable [phone] Encounter Details Date Type Department Care Team (Late st Contact Info) Description 11/29/2024 Abstract [facility] 112 [facility] 110 [place] [address] Vlad Cesar MD 112 [facility] 110 [place], [place] [address] Social History Tobacco Use Types Packs/Day Years [...] How often do you attend chur or restorationist services? Never 02/23/2024 Do you belong to any clubs o r organizations such as christian groups, unions, fraternal or athletic groups, or [...] Recorded Patient Health Questionnaire-2 Score 0 10/13/2024 [facility] of Occupat ional Health - Occupational [...] any time in the past 12 m [facility], were you homeless or [...] SHERLYN MARAVILLA 112 [facility] 110 [place] [address] Vlad Cesar MD 112 [facility] 110 [place] [address] 03/07/2025 11:50 AM EDT Office Visit [facility] 3006 [place] [address] Narinder Rubi DPM 3006 [facility] 5 [place] [address] documented as of this encounter Visit Diagnoses Not on filedocumented in this encounter Care Teams Manager Center Relationship Specialty Start Date End Date lVad Cesar MD 112 [facility] 110 [place] [address] PCP - General Internal Medicine 10/21/22 Vlad Cesar MD 112 [facility] 110 [place] [address] PCP - ACO Reach 10/31/22 documented as of this encounter
--- OUTSIDE RECORDS SUMMARY | 2024-12-20 15:29 | XMS_ITS | Encounter Summary ---
Author Organization [facility] Address [address] [place] [address] Care Team Providers Care Traffic Control Supervisor Name Role Phone Vlad Cesar MD Primary Care Provider [phone] Vlad Cesar MD Unavailable [phone] Encounter Details Date Type Department Care Team (Late st Contact Info) Description 11/17/2024 Abstract [facility] 112 [facility] 110 [place] [address] Vlad Cesar MD [address] [facility] 110 [place], [place] [address] Social History Tobacco Use Types Packs/Day Years [...] How often do you attend chur or adventism services? Never 02/23/2024 Do you belong to any clubs o r organizations such as catholic groups, unions, fraternal or athletic groups, or [...] Recorded Patient Health Questionnaire-2 Score 0 10/13/2024 [facility] of Occupat ional Health - Occupational Stress [...] place to sleep or slept in a longterm (including now)? No 01/12/2023 Housing Stability Vital Sign Answer Chad e Recorded In the last 12 months, was t here a time when you were not able to pay the mortgage or rent on time? No 02/23/2024 Number of Times Moved in the Last Year Not on fi le 02/23/2024 At any time in the past 12 m [facility], were you homeless or living in a longterm (including now)? No 02/23/2024 Comments Unknown Sex [...] MARAVILLA 112 [facility] 110 [place] [address] Vlad Cesar MD [address] [facility] 110 [place] [address] 03/07/2025 11:50 AM EDT Office Visit [facility] 3[address] [place] [address] Narinder Rubi DPM 3006 [facility] 5 [place] [address] documented as of this encounter Visit Diagnoses Not on filedocumented in this encounter Care Teams Traffic Control Supervisor Relationship Specialty Start Date End Date Vlad Cesar MD 112 [facility] 110 [place] [address] PCP - General Internal Medicine 10/21/22 Vlad Cesar MD 112 [facility] 110 [place] [address] PCP - ACO Reach 10/31/22 documented as of this encounter
--- OUTSIDE RECORDS SUMMARY | 2024-12-20 15:29 | XMS_ITS | Encounter Summary ---
Author Organization [facility] Address [address] [place] [address] Care Team Providers Care Wet Suit Gluer Name Role Phone Vlad Cesar MD Primary Care Provider [phone] Vlad Cesar MD Unavailable [phone] Encounter Details Date Type Department Care Team (Late st Contact Info) Description 12/08/2024 Clinisync Result Encounter N[facility]S External Department Unsolicited [...] often do you attend chur ch or shinto services? Never 02/23/2024 Do you belong to any clubs o r organizations such as religion groups, unions, fraternal [...] Health Questionnaire-2 Score 0 10/13/2024 [facility] - Occupational Stress Questionnaire Answer Date [...] any time in the past 12 m [facility], were you homeless or [...] EDT Office Visit [facility] [address] [facility] 110 [place] [address] Vlad Cesar MD 112 [facility] 110 [place], [place] [address] 03/07/2025 11:50 AM EDT Office Visit [facility] 3006 [place] [address] Narinder Rubi DPM 3006 [facility] 5 [place] [address] documented as of this encounter Procedures Procedure Name Priority Date/Time Associated Diagnosis Comments ALL CBC WITH AUTO DIFF Routine 12/08/2024 12:12 PM EDT ALL BASIC METABOLIC PANEL Routine 12/08/2024 12:12 PM EDT documented in this encounter Results * (ABNORMAL) ALL BASIC METABOLIC PANEL (12/08/2024 12:12 PM EDT) SODIUM 139 136 - 145 mmol/L [facility] POTASSIUM 3.8 3.5 - 5.1 mmol/L [facility] CHLORIDE 103 98 - 107 mmol/L [facility] CARBON DIOXIDE 27.3 21.0 - 32.0 mmol/L [facility] ANION GAP 12.5 [facility] GLUCOSE 341(H) 74 - 106 mg/dL [facility] BLOOD UREA NITROGEN 23.0(H) 7.0 - 18.0 mg/dL [facility] CREATININE 1.14(H) 0.55 - 1.02 mg/dL [facility] TBH EGFR-AF ANDORRAN 57(L) >=60 mL/min/1.7 3m 2 TBH TBH EGFR-NON AF ANDORRAN 47(L) >=60 mL/min/1.7 3m 2 [facility] BUN CREATININE RATIO 20.2 [facility] CALCIUM 10.0 8.5 - 10.1 mg/dL [facility] 12/08/2024 12:1 2 PM EDT 12/08/2024 12:13 PM EDT Narrative [facility] - 12/08/2024 12:54 PM EDT us Generic External Data Provider [facility] F inal Result [facility] * (ABNORMAL) ALL CBC WITH AUTO DIFF (12/08/2024 12:12 PM EDT) [facility] WBC 7.6 4.0 - 11.0 10 3/uL TBH TBH RBC 4.04(L) 4.20 - 5.40 10 6/uL TBH TBH HGB 11.5(L) 12.0 - 16.0 g/dL TBH TBH HCT 37.1 36.0 - 48.0 % TBH TBH MCV 91.8 81.0 - 99.0 fL TBH TBH MCH 28.5 26.7 - 34.0 pg TBH TBH MCHC 31.0 29.9 - 35.2 g/dL TBH TBH RDW 19.1(H) 11.0 - 15.0 % TBH TBH PLT 287 150 - 450 10 3/uL TBH TBH MPV 9.5 9.5 - 13.5 fL TBH NEUTROPHILS PERCENT AUTO 70.5 43.0 - 75.0 % [facility] LYMPHOCYTES PERCENT AUTO 14.6(L) 20.5 - 60.0 % [facility] MONOCYTES PERCENT AUTO 11.8 1.7 - 12.0 % TBH TBH EO % 2.1 0.9 - 7.0 % TBH BASOPHILS PERCENT AUTO 0.7 0.2 - 2.0 % [facility] IMMATURE GRANULOCYTES PCT AUTO 0.3 0.0 - 0.5 % TBH NEUTROPHILS ABSOLUTE AUTO 5.4 1.4 - 6.5 10 3/uL TBH LYMPHOCYTES ABSOLUTE AUTO 1.1(L) 1.2 - 3.8 10 3/uL TBH MONOCYTES ABSOLUTE AUTO 0.9(H) 0.3 - 0.8 10 3/uL TBH TBH EO # 0.2 0.0 - 0.7 10 3/uL TBH BASOPHILS ABSOLUTE AUTO 0.1 0.0 - 0.1 10 3/uL [facility] IMMATURE GRANULOCYTES ABS AUTO 0.02 0.00 - 0.03 10 3/uL [facility] 12/08/2024 12:1 2 PM EDT 12/08/2024 12:13 PM EDT Narrative [facility] - 12/08/2024 12:19 PM EDT us Generic External Data Provider [facility] F inal Result [facility] TB documented in this encounter Visit Diagnoses Not on filedocumented in this encounter Care Teams Wet Suit Gluer Relationship Specialty Start Date End Date Vlad Cesar MD 112 [place] [address] PCP - General Internal Medicine 10/21/22 Vlad Cesar MD [address] [address] PCP - ACO Reach 10/31/22 documented as of this encounter
--- OUTSIDE RECORDS SUMMARY | 2024-12-20 15:29 | XMS_ITS | Encounter Summary ---
Author Organization [facility] Address [address] [place] [address] Care Team Providers Care Last Puller Name Role Phone Vlad Cesar MD Primary Care Provider [phone] Vlad Cesar MD Unavailable [phone] Encounter Details Date Type Department Care Team (Late st Contact Info) Description 11/29/2024 Abstract [facility] 112 [facility] 110 [place] [address] Vlad Cesar MD 112 [facility] 110 [place], [place] [address] Social History Tobacco Use Types Packs/Day Years [...] How often do you attend chur or mormon services? Never 02/23/2024 Do you belong to any clubs o r organizations such as hindu groups, unions, fraternal or athletic groups, or [...] Recorded Patient Health Questionnaire-2 Score 0 10/13/2024 [facility] of Occupat ional Health [...] any time in the past 12 m [facility], were you homeless or living in [...] EDT Office Visit [facility] 112 [facility] 110 [place] [address] Vlad Cesar MD 112 [facility] 110 [place] [address] 03/07/2025 11:50 AM EDT Office Visit [facility] [address] [place] [address] Narinder Rubi DPM 3006 [facility] 5 [place] [address] documented as of this encounter Visit Diagnoses Not on filedocumented in this encounter Care Teams Last Puller Relationship Specialty Start Date End Date Vlad Cesar MD 112 [facility] 110 [place] [address] PCP - General Internal Medicine 10/21/22 Vlad Cesar MD 112 [facility] 110 [place] [address] PCP - ACO Reach 10/31/22 documented as of this encounter
--- OUTSIDE RECORDS SUMMARY | 2024-12-20 15:29 | XMS_ITS | Encounter Summary ---
Author Organization [facility] Address [address] [place] [address] Care Team Providers Care English As A Second Language Instructor Name Role Phone Vlad Cesar MD Primary Care Provider [phone] Vlad Cesar MD Unavailable [phone] Encounter Details Date Type Department Care Team (Late st Contact Info) Description 12/20/2024 Abstract [facility] [address] 110 [place] [address] Vlad Cesar MD 112 [facility] 110 [place], [place] [address] Social History Tobacco Use Types Packs/Day Years [...] any clubs o r organizations such as faith groups, unions, fraternal or athletic groups, or [...] Recorded Patient Health Questionnaire-2 Score 0 10/13/2024 [facility] Occupat ional Health - Occupational [...] any time in the past 12 m [facility], were you homeless or [...] EDT Office Visit [facility] 112 [facility] 110 [place] [address] Vlad Cesar MD 112 [facility] 110 [place] [address] 03/07/2025 11:50 AM EDT Office Visit [facility] [address] [place] [address] Narinder Rubi DPM [address] [facility] 5 [place] [address] documented as of this encounter Visit Diagnoses Not on filedocumented in this encounter Care Teams English As A Second Language Instructor Relationship Specialty Start Date End Date Vlad Cesar MD 112 [facility] 110 [place] [address] PCP - General Internal Medicine 10/21/22 Vlad Cesar MD 112 [facility] 110 [place] [address] PCP - ACO Reach 10/31/22 documented as of this encounter
--- OUTSIDE RECORDS SUMMARY | 2024-12-20 15:29 | XMS_ITS | Encounter Summary ---
Author Organization [facility] Address [address] [place] [address] Care Team Providers Care Technology Coordinator Name Role Phone Vlad Cesar MD Primary Care Provider [phone] Vlad Cesar MD Unavailable [phone] Encounter Details Date Type Department Care Team (Late st Contact Info) Description 12/20/2024 Abstract [facility] 112 [facility] 110 [place] [address] Vlad Cesar MD 112 [facility] 110 [place], [place] [id number] Social History Tobacco Use Types Packs/Day Years [...] How often do you attend chur or roman catholic services? Never 02/23/2024 Do you belong to any clubs o r organizations such as jainism groups, unions, fraternal or athletic groups, or [...] Recorded Patient Health Questionnaire-2 Score 0 10/13/2024 [facility] of Occupat ional Health - [...] any time in the past 12 m [facility], were you homeless or living in a [...] EDT Office Visit [facility] 112 [facility] 110 [place] [address] Vlad Cesar MD 112 [facility] 110 [place] [address] 03/07/2025 11:50 AM EDT Office Visit [facility] [address] [place] [address] Narinder Rubi DPM 3006 [facility] 5 [place] [address] documented as of this encounter Visit Diagnoses Not on filedocumented in this encounter Care Teams Technology Coordinator Relationship Specialty Start Date End Date Vlad Cesar MD 112 [facility] 110 [place] [address] PCP - General Internal Medicine 10/21/22 Vlad Cesar MD 112 [facility] 110 [place] [address] PCP - ACO Reach 10/31/22 documented as of this encounter
--- OUTSIDE RECORDS SUMMARY | 2024-12-20 15:29 | XMS_ITS | Encounter Summary ---
Author Organization [facility] Address [address] [place] [address] Care Team Providers Care Bacteriologist Fishery Name Role Phone Vlad Cesar MD Primary Care Provider [phone] Vlad Cesar MD Unavailable [phone] Friday, Marce DOLL Unavailable [phone] Encounter Details Date Type Department Care Team (Late st Contact Info) Description 07/01/2023 Clinisync Result Encounter [facility] External Department Unsolicited Vlad Cesar MD [address] [facility] 110 [place] [address] Social History Tobacco Use Types Packs/Day Years [...] often do you attend chur ch or jehovah's witness services? Never 01/12/2023 Do you belong to [...] and heating? Not hard at all 01/12/2023 PHQ-2 Answer Date Recorded Patient Health Questionnaire-2 Score 0 06/25/2023 [facility] Answer Date [...] place to sleep or slept in a snf (including now)? No 01/12/2023 Comments Unknown Sex [...] Office Visit [facility] [address] [facility] 110 [place] [address] Vlad Cesar MD 112 [facility] 110 [place] [address] 03/07/2025 11:50 AM EDT Office Visit [facility] [address] [place] [address] Narinder Rubi DPM 3006 [facility] 5 [place] [address] documented as of this encounter Procedures Procedure Name Priority Date/Time Associated Diagnosis Comments XR CHEST 2V 07/01/2023 4:02 PM EST documented in this encounter Results * XR CHEST 2V (07/01/2023 4:02 PM EST) Anatomical Region Laterality Modality Other 07/01/2023 4:02 PM EST Narrative 07/01/2023 4:04 PM EST [address] [address] XRay Report Signed Patient: LAURA LAWSON MR#: [id number] : 1950 Acct:[id number] Age/Sex: 72 / F ADM Date: 07/01/23 Loc: RAD Attending Dr: VLAD CESAR Ordering Physician: VLAD CESAR Date of Service: 07/01/23 Procedure(s): XR chest 2V Accession Number(s): [id number] cc: VLAD CESAR [address] [address] Patient Name: LAURA LAWSON MRN: [id number] date: 1950 Sex: F Assigned Patient Location: [facility] Current Patient Location: [facility] Accession/Order Number: [id number] Exam Date: 07/01/2023 15:34 Report Date: 07/01/2023 16:02 At the request of: VLAD CESAR Procedure: XR chest 2V EXAM: XR chest 2V HISTORY: acute bronchitis J20.9 ; technologist notes state bronchitis and shortness of breath. COMPARISON: None. TECHNIQUE: PA and lateral views of the chest performed. FINDINGS: The trachea is unremarkable. There is mild enlargement of the cardiac mediastinal silhouette which is partially secured. There is mild atheromatous calcification at the aortic arch. There are low lung volumes with moderate elevation of the left hemidiaphragm. There is compressive atelectasis associated with the elevated left hemidiaphragm. There are patchy densities within the left perihilar region suggesting atelectasis and/or infiltrate. There is peribronchial cuffing at both hilar regions and be associated with bronchitis. There is no pleural effusion or pulmonary vascular congestion. There is no pneumothorax. The bony structures are osteopenic. There is no acute osseous adenopathy. There are moderate degenerative changes at the acromioclavicular and glenohumeral articulations bilaterally. There are endplate spurs along the spine. XR/XR chest 2V IMPRESSION: There are low lung volumes with moderate elevation of the left hemidiaphragm. There is compressive atelectasis associated with the elevated left hemidiaphragm. There are patchy densities within the left perihilar region suggesting atelectasis and/or infiltrate. There is also peribronchial cuffing within both hilar regions which can be associated with a bronchitis. Electronically authenticated by: JAMES ROBERTS Date: 07/01/2023 16:02 Dictated By: James Roberts M.D. Signed By: 07/01/23 1604 DD/ 1602 TD/TT: Autocad Electrical Designer: Procedure Note Radiology, Radiologist, MD - 07/01/2023 [place] [address] XRay Report Signed Patient: LAURA LAWSON AMR#: [id number] : 1950cct:[id number] Age/Sex: 72 / FADM Date: 07/01/23 Loc: RAD Attending Dr: VLAD CESAR Ordering Physician: VLAD CESAR Date of Service: 07/01/23 Procedure(s): XR chest 2V Accession Number(s): [id number] cc: VLAD CESAR The [address] [address] Patient Name: LAURA LAWSON MRN: [id number] date: 1950 Sex: F Assigned Patient Location: [facility] Current Patient Location: [facility] Accession/Order Number: [id number] Exam Date: 07/01/2023 15:34 Report Date: 07/01/2023 16:02 At the request of: VLAD CESAR Procedure: XR chest 2V EXAM: XR chest 2V HISTORY: acute bronchitis J20.9 ; technologist notes state bronchitis and shortness of breath. COMPARISON: None. TECHNIQUE: PA and lateral views of the chest performed. FINDINGS: The trachea is unremarkable. There is mild enlargement of the cardiac mediastinal silhouette which is partially secured. There is mildatheromatous calcification at the aortic arch. There are low lung volumes with moderate elevation of the lefthemidiaphragm. There is compressive atelectasis associated with the elevated left hemidiaphragm. There are patchy densities within the left perihilar region suggesting atelectasis and/or infiltrate. There is peribronchial cuffingat both hilar regions and be associated with bronchitis. There is no pleural effusion or pulmonary vascular congestion. There is no pneumothorax. The bony structures are osteopenic. There is no acute osseous adenopathy. There are moderate degenerative changes at the acromioclavicular and glenohumeral articulations bilaterally. There are endplate spurs along the spine. XR/XR chest 2V IMPRESSION: There are low lung volumes with moderate elevation of the lefthemidiaphragm. There is compressive atelectasis associated with the elevated left hemidiaphragm. There are patchy densities within the left perihilar region suggesting atelectasis and/or infiltrate. There is also peribronchial cuffing withinboth hilar regions which can be associated with a bronchitis. Electronically authenticated by: JAMES ROBERTS Date: 07/01/2023 16:02 Dictated By: James Roberts M.D. Signed By:07/01/23 1604 DD/ 1602 TD/TT: Autocad Electrical Designer: Vlad Cesar MD [facility] Final Result documented in this encounter Visit Diagnoses Not on filedocumented in this encounter Care Teams Bacteriologist Fishery Relationship Specialty Start Date End Date Vlad Cesar MD [address] [place] [address] [place] [address] PCP - General Internal Medicine 10/21/22 Vlad Cesar MD [address] [place] [address] [place] [address] PCP - ACO Reach 10/31/22Friday, SHARMILA Zheng [address] [place] [address] Licensed Practical Nurse Family Medicine 09/04/23 09/08/23 documented as of this encounter
--- OUTSIDE RECORDS SUMMARY | 2024-12-20 15:29 | XMS_ITS | Encounter Summary ---
Author Organization [facility] Address [address] [place] [address] Care Team Providers Care Education And Training Coordinator Name Role Phone Vlad Cesar MD Primary Care Provider Vlad Cesar MD Unavailable [phone] Friday, Marce HYDRO STATION OPERATOR Unavailable [phone] Encounter Details Date Type Department Care Team (Late st Contact Info) Description 07/02/2023 Orders Only [facility] 112 [facility] 110 [place] [address] Vlad Cesar MD 112 [facility] 110 [place] [address] Social History Tobacco Use Types [...] often do you attend chur ch or christian services? Never 01/12/2023 Do you belong to any clubs o r organizations such as presybeterian groups, unions, fraternal or athletic groups, or [...] Recorded Patient Health Questionnaire-2 Score 0 06/25/2023 [facility] Occupat ional [facility] - Occupational Stress Questionnaire Answer Date Recorded [...] place to sleep or slept in a mcfp (including now)? No 01/12/2023 Comments Unknown Sex [...] EDT Office Visit [facility] 112 [facility] 110 [place] [address] Vlad Cesar MD 112 [facility] 110 [place] [address] 03/07/2025 11:50 AM EDT Office Visit [facility] [address] [place] [address] Narinder Rubi DPM 3006 [facility] 5 [place] [address] documented as of this encounter Procedures Procedure Name Priority Date/Time Associated Diagnosis Comments XR CHEST 1 VIEW Routine 07/02/2023 2:57 PM EST XR CHEST 2 VIEWS Routine 07/01/2023 9:18 AM EST documented in this encounter Results * XR chest 1 view (07/02/2023 2:57 PM EST) Anatomical Region Laterality Modality Chest Radiographic Nicolle ging us Noms Provider Unallocated IMG XR PROCEDURES F inal Result * XR chest 2 views (07/01/2023 9:18 AM EST) Anatomical Region Laterality Modality Chest Radiographic Nicolle ging Vlad Cesar MD IMG XR PROCEDURES Final Result documented in this encounter Visit Diagnoses Not on filedocumented in this encounter Care Teams Education And Training Coordinator Relationship Specialty Start Date End Date Vlad Cesar MD [address] [place] [address] [place] [address] PCP - General Internal Medicine 10/21/22 Vlad Cesar MD [address] [place] [address] [place] [address] PCP - ACO Reach 10/31/22Friday, SHARMILA Zheng [address] [place] [address] Licensed Practical Nurse Family Medicine 09/04/23 09/08/23 documented as of this encounter
--- OUTSIDE RECORDS SUMMARY | 2024-12-20 15:29 | XMS_ITS | Encounter Summary ---
Author Organization [facility] Address [address] [place] [address] Care Team Providers Care Offset Lithographic Press Operator Name Role Phone Vlad Cesar MD Primary Care Provider [phone] Vlad Cesar MD Unavailable [phone] Encounter Details Date Type Department Care Team (Late st Contact Info) Description 2024 Abstract [facility] 112 [facility] 110 [place] [address] Vlad Cesar MD 112 [facility] 110 [place], [place] [address] Social History Tobacco Use Types Packs/Day Years [...] How often do you attend chur or adventist services? Never 02/23/2024 Do you belong to [...] Office Visit [facility] 112 [facility] 110 [place] [address] Vlad Cesar MD 112 [facility] 110 [place] [address] 03/07/2025 11:50 AM EDT Office Visit [facility] [address] [place] [address] Narinder Rubi DPM 3006 [facility] 5 [place] [address] documented as of this encounter Visit Diagnoses Not on filedocumented in this encounter Care Teams Offset Lithographic Press Operator Relationship Specialty Start Date End Date Vlad Cesar MD 112 [facility] 110 [place] [address] PCP - General Internal Medicine 10/21/22 Vlad Cesar MD 112 [facility] 110 [place] [address] PCP - ACO Reach 10/31/22 documented as of this encounter
--- OUTSIDE RECORDS SUMMARY | 2024-12-20 15:29 | XMS_ITS | Encounter Summary ---
Author Organization [facility] Address [address] [place] [address] Care Team Providers Care Sheetfed Press Operator Name Role Phone Vlad Cesar MD Primary Care Provider [phone] Vlad Cesar MD Unavailable [phone] Friday, Marce DOLL Unavailable [phone] Encounter Details Date Type Department Care Team (Late st Contact Info) Description 07/03/2023 Orders Only [facility] [address] [place] 110 [place] [address] A, Unknown Practice [address] [place] [address] Social History Tobacco Use Types Packs/Day Years [...] often do you attend chur ch or gnosticist services? Never 01/12/2023 Do you belong to any clubs o r organizations such as christianity groups, unions, fraternal or athletic groups, or [...] Recorded Patient Health Questionnaire-2 Score 0 06/25/2023 [facility] - Occupational Stress Questionnaire Answer Date Recorded [...] a senior care (including now)? No 01/12/2023 Comments Unknown Sex [...] EDT Office Visit [facility] 112 [facility] 110 [place] [address] Vlad Cesar MD 112 [facility] 110 [place] [address] 03/07/2025 11:50 AM EDT Office Visit [facility] [address] [place] [address] Narinder Rubi DPM 3006 [facility] 5 [place] [address] documented as of this encounter Procedures Procedure Name Priority Date/Time Associated Diagnosis Comments ELECTROCARDIOGRAM REPORT Routine 024 10:03 AM EST documented in this encounter Results * Electrocardiogram Report (07/02/2023 10:03 AM EST) us Unknown Practice A IN CLINIC/BEDSIDE ORDERABLES Final Result documented in this encounter Visit Diagnoses Not on filedocumented in this encounter Care Teams Sheetfed Press Operator Relationship Specialty Start Date End Date Vlad Cesar MD [address] [place] [address] [place] [address] PCP - General Internal Medicine 10/21/22 Vlad Cesar MD [address] [place] [address] [place] [address] PCP - ACO Reach 10/31/22Friday, SHARMILA Zheng [address] [place] [address] Licensed Practical Nurse Family Medicine 09/04/23 09/08/23 documented as of this encounter
--- OUTSIDE RECORDS SUMMARY | 2024-12-20 15:29 | XMS_ITS | Encounter Summary ---
Author Organization [facility] Address [address] [place] [address] Care Team Providers Care Negotiations Director Name Role Phone Vlad Cesar MD Primary Care Provider [phone] Vlad Cesar MD Unavailable [phone] Encounter Details Date Type Department Care Team (Late st Contact Info) Description 11/30/2024 Abstract [facility] 112 [facility] 110 [place] [address] Vlad Cesar MD 112 [facility] 110 [place], [place] [address] Social History Tobacco Use Types Packs/Day Years [...] Recorded Patient Health Questionnaire-2 Score 0 10/13/2024 [facility] of Occupat ional Health - [...] place to sleep or slept in a correction (including now)? No 01/12/2023 Housing Stability Vital Sign Answer Chad e Recorded In the last 12 months, was t here a time when you were not able to pay the mortgage or rent on time? No 02/23/2024 Number of Times Moved in the Last Year Not on fi le 02/23/2024 At any time in the past 12 m [facility], were you homeless or living in a correction (including now)? No 02/23/2024 Comments Unknown Sex [...] [facility] 110 [place] [address] Vlad Cesar MD 112 [facility] 110 [place] [address] 03/07/2025 11:50 AM EDT Office Visit [facility] [address] [place] [address] Narinder Rubi DPM 3006 [facility] 5 [place] [address] documented as of this encounter Visit Diagnoses Not on filedocumented in this encounter Care Teams Negotiations Director Relationship Specialty Start Date End Date Vlad Cesar MD 112 [facility] 110 [place] [address] PCP - General Internal Medicine 10/21/22 Vlad Cesar MD 112 [facility] 110 [place] [address] PCP - ACO Reach 10/31/22 documented as of this encounter
--- OUTSIDE RECORDS SUMMARY | 2024-12-20 15:29 | XMS_ITS | Encounter Summary ---
Author Organization [facility] Address [address] [place] [address] Care Team Providers Care Building Stonecutter Name Role Phone Vlad Cesar MD Primary Care Provider Vlad Cesar MD Unavailable [phone] Friday, Marce DOLL Unavailable [phone] Encounter Details Date Type Department Care Team (Late st Contact Info) Description 06/30/2023 Abstract [facility] 112 [facility] 110 [place] [address] Vlad Cesar MD 112 [facility] 110 [place] [address] Social History Tobacco Use Types [...] often do you attend chur ch or worship services? Never 01/12/2023 Do you belong to [...] Recorded Patient Health Questionnaire-2 Score 0 06/25/2023 [facility] of Occupat ional [facility] - Occupational Stress Questionnaire Answer Date Recorded [...] a skilled nursing (including now)? No 01/12/2023 Comments Unknown Sex [...] Visit [facility] [address] [facility] 110 [place] [address] Vlad Cesar MD [address] [facility] 110 [place] [address] 03/07/2025 11:50 AM EDT Office Visit [facility] [address] [place] [address] Narinder Rubi DPM [address] [address] documented as of this encounter Visit Diagnoses Not on filedocumented in this encounter Care Teams Building Stonecutter Relationship Specialty Start Date End Date Vlad Cesar MD [address] [facility] 110 [place] [address] PCP - General Internal Medicine 10/21/22 Vald Cesar MD [address] [place] [address] [place] [address] PCP - ACO Reach 10/31/22Friday, SHARMILA Zheng [address] [place] [address] Licensed Practical Nurse Family Medicine 09/04/23 09/08/23 documented as of this encounter
--- OUTSIDE RECORDS SUMMARY | 2024-12-20 15:29 | XMS_ITS | Clinical Summary ---
Author Organization [facility] Address [address] [place] [address] Care Team Providers Care Manager Route Name Role Phone Vlad Cesar MD Primary Care Provider [phone] Vlad Cesar MD Unavailable [phone] Allergies Active Allergy Reactions Criticality Noted Date Comments Gabapentin Palpitations Low 10/28/2022 Tramadol Other Low 10/28/2022 Medications pen needle 31G x 6 mm misc 2 (two) times a day. Use as instructed Active nitroglycerin (Nitrostat) 0.[address] 0.3 mg under the tongue every 5 (five) minutes if needed for chest pain. Active insulin syringe-needle U-100 31G X 5/16 0.5 mL misc Inject under the skin 2 (two) times a day. Use as instructed Active potassium chloride CR (Klor-Con M20) 20 MEQ ER tabletIndications :Hypokalemia Take 20 mEq by mouth in the morning and 20 mEq before bedtime. Do not crush or chew.. Active insulin pen needle (BD Pen Needle Cass 2nd Gen) 32G x 4 mm miscIndications:T ype 2 diabetes mellitus with hyperglycemia, with long-term current use of insulin (HCC) USE DIRECTED ONCE DAILY 100 each 3 08/07/19 24 Active BD Insulin Syringe U/F 31G X 5/16 1 ML miscIndications:T ype 2 diabetes mellitus with hyperglycemia, with long-term current use of insulin (HCC) USE DIRECTED UNDER THE SKIN TWO TIMES DAILY 180 each 3 11/24/19 24 Active spironolactone (Aldactone) 25 MG tabletIndications :Hypertension, unspecified type Take 1 tablet (25 mg) by mouth Daily 100 tablet 3 04/12/20 24 Active omeprazole (PriLOSEC) [address] capsuleIndication s:Gastroesophagea l reflux disease, unspecified whether esophagitis present Take 1 capsule (40 mg) by mouth in the morning. Take before meals. Do not crush or chew.. 100 capsule 3 04/12/20 24 Active apixaban (Eliquis) 5 MG tablet Take 5 mg by mouth in the morning and 5 mg before bedtime. Active ticagrelor (Brilinta) 90 MG tablet Take 90 mg by mouth in the morning and 90 mg before bedtime. Active nystatin (Klayesta) 097612 UNIT/GM powderIndications :Intertrigo Apply topically 2 (two) times a day 60 g 1 08/06/19 25 2025 Active lidocaine (Lidoderm) 5 % patch PLACE 1 PATCH ON MOST PAINFUL AREA ON SKIN ONCE DAILY NEEDED FOR PAIN *ON FOR 12HRS/OFF FOR 12HRS 06/13/19 25 Active pregabalin (Lyrica) 25 MG capsule Take 25 mg by mouth in the morning and 25 mg before bedtime. Active atorvastatin (Lipitor) 80 MG tabletIndications :Hyperlipidemia, unspecified hyperlipidemia type TAKE 1 TABLET BY MOUTH EVERY DAY AT BEDTIME 100 tablet 3 08/31/19 25 Active sacubitril-valsar carrera (Entresto) 24-26 MG tabletIndications :Chronic systolic congestive heart failure (HCC) 1/2 tablet by mouth twice a day 90 tablet 3 08/31/19 25 Active torsemide (Demadex) 20 MG tabletIndications :Chronic systolic congestive heart failure (HCC),Peripheral venous insufficiency Take 1 tablet (20 mg) by mouth Daily 30 tablet 11 09/04/19 25 2025 Active insulin lispro (HumaLOG) 100 UNIT/ML injectionIndicati ons:Type 2 diabetes mellitus with other specified complication, with long-term current use of insulin ([facility]) Inject 1-4 times per day as directed. 09/04/19 25 Active ezetimibe (Zetia) 10 MG tabletIndications :Type 2 diabetes mellitus with diabetic polyneuropathy, with long-term current use of insulin ([facility]) Take 1 tablet (10 mg) by mouth Daily 100 tablet 3 09/14/19 25 Active metoprolol succinate XL (Toprol-XL) 25 MG 24 hr tabletIndications :Hypertension, unspecified type Take 1 tablet (25 mg) by mouth Daily 100 tablet 3 09/14/19 25 Active allopurinol (Zyloprim) 300 MG tabletIndications :Gout, unspecified cause, unspecified chronicity, unspecified site Take 1 tablet (300 mg) by mouth Daily 100 tablet 3 09/14/19 25 Active meloxicam (Mobic) 15 MG tabletIndications :Chronic bilateral low back pain, unspecified whether sciatica present Take 1 tablet (15 mg) by mouth Daily 100 tablet 3 09/14/19 25 Active dapagliflozin (Farxiga) 5 MGIndications:Typ e 2 diabetes mellitus with diabetic polyneuropathy, with long-term current use of insulin (HCC) Take 1 tablet (5 mg) by mouth Daily 100 tablet 3 09/14/19 25 Active insulin glargine (Toujeo Max SoloStar) 300 UNIT/ML injection Inject 20 Units under the skin at bedtime Active Dulaglutide (Trulicity) 0.75 MG/0.5ML solution auto-injectorIndi cations:Type 2 diabetes mellitus with diabetic polyneuropathy, with long-term current use of insulin ([facility]) Inject 0.75 mg under the skin 1 (one) time per week 2 mL 5 09/14/19 25 Active OneTouch Ultra test stripIndications: Type 2 diabetes mellitus with hyperglycemia, with long-term current use of insulin ([facility]) TEST ONCE IN THE MORNING,IN THE EVENING,AND BEFORE BEDTIME*E11.6 5* 100 strip 1 10/14/19 25 Active baclofen (Lioresal) 10 MG tabletIndications :Muscle spasm TAKE 1 TABLET IN THE MORNING AND 1 TABLET BEFORE BEDTIME 180 tablet 3 11/26/19 25 Active baclofen (Lioresal) 10 MG tabletIndications :Muscle spasm Take 1 tablet (10 mg) by mouth in the morning and 1 tablet (10 mg) before bedtime. 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 Mild mitral regurgitation 07/09/2024 Cognitive communication deficit 07/08/2024 Dysphagia, oral phase 07/08/2024 Muscle weakness (generalized) 06/17/2024 Acquired absence of both cervix and uterus 06/14 Carpal tunnel syndrome, left upper limb 06/14/19 25 Cervicalgia 06/14/2024 Other chronic pain 06/14/2024 Pain in left knee 06/14/2024 Presence of coronary angioplasty implant and gra ft 06/14/2024 Acute cystitis without hematuria 06/09/2024 Chronic kidney disease, stage 3a 06/09/2024 Type 2 diabetes mellitus wit h diabetic chronic kidney disease 06/09/2024 Unspecified systolic (congestive) heart failure 06/09/2024 Angina pectoris 04/19/2024 Spinal stenosis of lumbar region 12/19/2023 Coronary artery disease invo lving [place] coronary artery of [place] heart without angina pectoris 09/24/2023 Acute on chronic diastolic heart failure 024 Acquired spondylolisthesis 01/13/2023 S/P drug eluting coronary stent placement 2022 Paresthesia of skin 01/13/2023 Primary osteoarthritis of both knees 01/13/2023 Lumbar radiculopathy 01/13/2023 Diastolic dysfunction 01/13/2023 Localized edema 10/28/2022 GERD (gastroesophageal reflux disease) Diabetes 10/15/2022 Gout 10/15/2022 Hyperlipidemia 10/15/2022 Hypertension 10/15/2022 Kidney stones 10/15/2022 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 Obstructive sleep apnea syndrome 10/15/2022 Thyroid disease 10/15/2022 Type 2 diabetes mellitus wit h diabetic polyneuropathy, with long-term current use of insulin 10/15/2022 Umbilical hernia without obstruction and without gangrene 10/15/2022 Difficulty walking 04/24/2021 Pure hypercholesterolemia 09/20/2020 Osteoporosis 03/08/2020 Peripheral venous insufficiency 01/10/2020 Ulcer of foot due to type 2 diabetes mellitus Skin sensation disturbance 11/05/2019 Osteoarthritis of knee 12/29/2017 Renal mass 05/28/2017 Generalized 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/17/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 07/12/2015 History of hysterectomy 07/12/2015 Pulmonary function studies abnormal 11/02/2013 Morbid obesity 10/08/2013 History of arthritis 10/08/2013 Overview (01/13/2023): OF THE KNEE Neoplasm of uncertain behavior of kidney 014 Low back pain 10/07/2013 Resolved Problems Problem Noted Date Diagnosed Date Resolved Date Obesity, class 2 06/09/2024 09/13/2024 Breast cancer screening by mammogram 10/28/2022 09/07/2024 Diabetic ulcer of calf assoc iated with type 2 diabetes mellitus 10/28/2022 12/19/2023 Coronary artery disease (CAD) excluded 10/15/2022 09/24/2023 Polyneuropathy due to type 2 diabetes mellitus 01/10/2020 04/21/2023 Encounters Date Type Department Care Team Description 12/20/2024 Abstract [facility] [address] [facility] [address] [place] [address] Vlad Cesar MD 12/20/2024 Abstract [facility] [address] [facility] [address] [place] [address] Vlad Cesar MD 12/15/2024 Clinisync Result Encounter [facility] Unsolicited Provider, Generic External Data 12/14/2024 Clinisync Result Encounter [facility] External [facility] Unsolicited Provider, Generic External Data 12/08/2024 Clinisync Result Encounter [facility] External [facility] Unsolicited Provider, Generic External Data 12/07/2024 1:10 PM EDT Office Visit [facility] [address] [place] [address] Narinder Rubi, SONIA Diabetes mellitus due to underlying condition with diabetic polyneuropathy, without long-term current use of insulin (HCC) (Primary Dx); Pain due to onychomycosis of toenails of both feet; Peripheral venous insufficiency 12/07/2024 Bamboo flowsheet [facility] [address] [place] [address] Narinder Rubi, DPM 11/30/2024 Abstract [facility] [address] [facility] [address] [place] [address] Vlad Cesar MD 11/29/2024 Abstract [facility] [address] [facility] [address] [place] [address] Vlad Cesar MD 11/29/2024 Abstract [facility] [address] [facility] [address] [place] [address] Vlad Cesar MD 11/25/2024 Refill [facility] [address] [facility] [address] [place] [address] Vlad Cesar MD Muscle spasm 2024 Abstract [facility] [address] [facility] [address] [place] [address] Vlad Cesar MD 11/22/2024 Clinisync Result Encounter [facility] External Department Unsolicited Provider, Generic External Data 11/19/2024 Abstract [facility] [address] [facility] [address] [place] [address] Vlad Cesar MD 11/17/2024 Clinisync Result Encounter [facility] External Department Unsolicited Provider, Generic External Data 11/17/2024 Abstract [facility] [address] [facility] [address] [place] [address] Vlad Cesar MD 11/11/2024 Abstract [facility] [address] [facility] [address] [place] [address] Vlad Cesar MD 11/11/2024 Abstract [facility] [address] [facility] [address] [place] [address] Vlad Cesar MD 11/09/2024 Abstract [facility] [address] [facility] [address] [place] [address] Vlad Cesar MD 11/09/2024 Abstract [facility] [address] [facility] [address] [place] [address] Vlad Cesar MD 11/08/2024 Abstract [facility] [address] [facility] [address] [place] [address] Vlad Cesar MD 10/27/2024 Abstract [facility] [address] [facility] [address] [place] [address] Vlad Cesar MD 10/27/2024 Abstract [facility] [address] [facility] [address] [place] [address] Vlad Cesar MD 10/27/2024 Abstract [facility] [address] [facility] [address] [place] [address] Vlad Cesar MD 10/26/2024 Abstract [facility] [address] [facility] [address] [place] [address] Vlad Cesar MD 10/25/2024 Abstract [facility] [address] [facility] [address] [place] [address] Vlad Cesar MD 10/21/2024 Clinisync Result Encounter [facility] External Department Unsolicited Provider, Generic External Data 10/21/2024 Abstract [facility] [address] [facility] [address] [place] [address] Vlad Cesar MD 10/14/2024 Abstract [facility] [address] [facility] [address] [place] [address] Vlad Cesar MD 10/13/2024 11:30 AM EDT Office Visit [facility] [address] [facility] [address] [place] [address] Vlad Cesar MD Routine general medical examination at health care facility (Primary Dx); ACP (advance care planning); Type 2 diabetes mellitus with diabetic polyneuropathy, with long-term current use of insulin (HCC); Type 2 diabetes mellitus with hyperglycemia, with long-term current use of insulin (HCC); Rheumatoid arthritis, unspecified (HCC); Estrogen deficiency; Breast screening 10/13/2024 Refill [facility] [address] [facility] [address] [place] [address] Vlad Cesar MD Type 2 diabetes mellitus with hyperglycemia, with long-term current use of insulin (HCC) 10/13/2024 Bamboo flowsheet [facility] [address] [facility] [address] [place] [address] Vlad Cesar MD 10/13/2024 Travel 10/12/2024 Abstract [facility] [address] [facility] [address] [place] [address] Vlad Cesar MD 10/11/2024 Abstract [facility] [address] [facility] [address] [place] [address] Vlad Cesar MD 09/28/2024 Abstract [facility] [address] [facility] [address] [place] [address] Vlad Cesar MD 09/27/2024 Abstract [facility] [address] [facility] [address] [place] [address] Vlad Cesar MD 09/27/2024 Abstract [facility] [address] [facility] [address] [place] [address] Vlad Cesar MD 09/21/2024 10:50 AM EDT Office Visit [facility] [address] [place] [address] Narinder Rubi DPM Diabetes mellitus due to underlying condition with diabetic polyneuropathy, without long-term current use of insulin (HCC) (Primary Dx); Pain due to onychomycosis of toenails of both feet; Peripheral venous insufficiency 09/21/2024 Bamboo flowsheet [facility] [address] [place] [address] Narinder Rubi DPM from Last 3 Months Immunizations Immunization Administration Dates Next Due Unknown outside immunization 06/16/2024 Family History Medical History Relation Name Comments Diabetes Father Sen Lawson Heart disease Father Sen Lawson Hypertension Father Sen Lawson myocardial infarction Father Sen Lawson Diabetes Father's Sister Nancy Logan Cancer Maternal Grandfather Deep Yuniel lo GERD disease Mother Skin cancer Mother Cancer Mother's Sister Cherelle Naidu No Known Problems Sister Relation Name Status Comments Father Sen Lawson Father's Sister Nancy Logan Maternal Grandfather Deep williamson Mother Alive Mother's Sister Cherelle Naidu Sister Social History Tobacco Use Types Packs/Day Years [...] attend chur ch or mandaeism services? Never 02/23/2024 Do you belong to any clubs o r organizations such as hinduism groups, unions, fraternal or athletic groups, or [...] Recorded Patient Health Questionnaire-2 Score 0 10/13/2024 [facility] - [...] any time in the past 12 m [facility], were you homeless or living in a detention (including now)? No 02/23/2024 Comments Unknown Sex and Gender Information Value Date Recorded Sex Assigned at Not on file Legal Sex Female 6:47 PM EDT Gender Identity Not on file Sexual Orientation Not on file Last Filed Vital Signs Vital Sign Reading Time Taken Comments Blood Pressure 132/66 10/13/2024 12:12 PM EDT Pulse 84 10/13/2024 12:12 PM EDT Temperature - - Respiratory Rate 18 12/07/2024 1:23 PM EDT Oxygen Saturation 96% 10/13/2024 12:12 PM EDT Inhaled Oxygen Concentration - - Weight 86.6 kg (191 lb) 12/07/2024 1:23 PM EDT Height 158.5 cm (5' 2.4 ) 12/07/2024 1:23 PM EDT Body Mass Index 34.49 12/07/2024 1:23 PM EDT Plan of Treatment Upcoming Encounters Date Type Department Care Team (Late st Contact Info) Description 12/23/2024 9:15 AM EDT Office Visit [facility] [address] [facility] [address] [place] [address] Vlad Cesar MD [address] [facility] [address] [place] [address] 03/07/2025 11:50 AM EDT Office Visit [facility] [address] [place] [address] Narinder Rubi DPM [address] [facility] [address] [place] [address] Health Maintenance Due Date Last Done Comments CT Colonography 1950 Colonoscopy 1950 FIT-DNA 1950 FIT 1950 FOBT 1950 Sigmoidoscopy 1950 Pneumococcal Vaccine: 65+ Years (1 of 2 - PCV) 11/24/1971 Diabetes: Urine Protein Screening 03/10/2024 03/10/2023, 03/15/2019 Diabetes: Retinopathy Screening 11/17/2024 11/18/2023, 10/24/2022, 10/01/2021, Additional history exists Mammogram 12/03/2024 12/04/2023, 10/09, 11/06/2022, Additional history exists Diabetes: Hemoglobin A1C 01/13/2025 025, 08/13/2024, 04/19/2024, Additional history exists Influenza Vaccine (#1) 2025 Colorectal Cancer Screening 09/03/2025 Postponed from 1950 (Patient Refused) Procedures Procedure Name Priority Date/Time Associated Diagnosis Comments ITP 12/15/2024 9:41 AM EDT XR CHEST 2V 12/14/2024 3:26 PM EDT ALL BASIC METABOLIC PANEL Routine 12/08/2024 12:12 PM EDT ALL CBC WITH AUTO DIFF Routine 12:12 PM EDT ITP 11/22/2024 11:46 AM EDT ITP 11/17/2024 2:45 PM EDT CA ECHO DOPPLER COMPLETE 10/21/2024 7:07 PM EDT POCT GLYCOSYLATED HEMOGLOBIN (HGB A1C) Routine 10/13/2024 12:48 PM EDT Type 2 diabetes mellitus with diabetic polyneuropathy, with long-term current use of insulin (HCC) MM TOMOSYNTHESIS SCREENING BI 12/04/2023 3:44 PM EDT DIABETIC RETINOPATHY SCREENING - OU - BOTH EYES Routine 11/18/2023 MICROALBUMIN / CREATININE URINE RATIO Routine 03/10/2023 10:58 AM EDT Type 2 diabetes mellitus with other specified complication, with long-term current use of insulin (HCC) from Last 3 Months or Most Recently Relevant to Health Maintenance Results * ITP (12/15/2024 9:41 AM EDT) Only the most recent of3 resultswithin the time period is included. Anatomical Region Laterality Modality Other 12/15/2024 9:41 AM EDT Narrative 12/15/2024 10:12 [place] [address] Cardiac Rehab Report Signed Patient: LAURA LAWSON MR#: [id number] : 1950 Acct:[id number] Age/Sex: 74 / F ADM Date: 12/09/24 Loc: CR Attending Dr: Gerardo Morris M.D. Ordering Physician: Jorje Camarillo D.O. Date of Service: 12/15/24 Procedure(s): ITP Accession Number(s): [id number] cc: [facility] Test Date: 2024-12-15 Pat Name: LAURA LAWSON Department: Room: - Gender: Female Scrap Sorter: : 1950 Requested By: Jorje Camarillo Order Number: [id number] Reading MD: Jorje Camarillo Interpretive Statements Patient appears disinterested in contributing to her own health. She is encouraged to participate in cardiac rehabilitation and be compliant with cardiology recommendations, especially regarding diet and fluid restrictions. Electronically Signed On 12-15-2024 10:11:58 EDT by Jorje Camarillo Dictated By: Jorje Camarillo D.O. Signed By: 12/15/24 1012 12/15/24 1012 DD/ TD/TT: Vp Public Relations: Procedure Note Radiology, Radiologist, MD - 12/15/2024 [place] [address] Cardiac Rehab Report Signed Patient: LAURA LAWSON AMR#: [id number] : 1950cct:[id number] Age/Sex: 74 / FADM Date: 12/09/24 Loc: CR Attending Dr: Gerardo Morris M.D. Ordering Physician: Jorje Camarillo D.O. Date of Service: 12/15/24 Procedure(s): ITP Accession Number(s): [id number] cc: [facility] Test Date: 2024-12-15 Pat Name: LAURA LAWSON Department: Room: - Gender: Female Scrap Sorter: : 1950 Requested By: Jorje Camarillo Order Number: [id number] Reading MD: Jorje Camarillo Interpretive Statements Patient appears disinterested in contributing to her own health. She is encouraged to participate in cardiac rehabilitation and be compliant with cardiology recommendations, especially regarding diet and fluidrestrictions. Electronically Signed On 12-15-2024 10:11:58 EDT by Jorje Camarillo Dictated By: Jorje Camarillo D.O. Signed By:12/15/24 1012 12/15/24 1012 DD/ 0941 TD/TT: Vp Public Relations: Generic External Data Provider [facility] Final Result * XR CHEST 2V (12/14/2024 3:26 PM EDT) Anatomical Region Laterality Modality Other 12/14/2024 3:26 PM EDT Narrative 12/14/2024 3:29 [place] [address] XRay Report Signed Patient: LAURA LAWSON MR#: [id number] : 1950 Acct:[id number] Age/Sex: 74 / F ADM Date: 12/14/24 Loc: RAD Attending Dr: Gerardo Morris M.D. Ordering Physician: Gerardo Morris M.D. Date of Service: 12/14/24 Procedure(s): XR chest 2V Accession Number(s): [id number] cc: VLAD CESAR ; eGrardo Morris M.D. [place] [address] Patient Name: LAURA LAWSON MRN: [id number] date: 1950 Sex: F Assigned Patient Location: [facility] Current Patient Location: [facility] Accession/Order Number: [id number] Exam Date: 12/14/2024 15:25 Report Date: 12/14/2024 15:26 At the request of: GERARDO MORRIS MD Procedure: XR chest 2V Plain film chest Single view HISTORY: Cardiomyopathy COMPARISON: 06/13/2024 FINDINGS: SUPPORT DEVICES: None POSTSURGICAL CHANGES: Cardiac device intact HEART: Similar cardiomegaly PULMONARY JANUARY: Mild hilar vascular congestion MEDIASTINUM: Unremarkable LUNGS AND PLEURA: Developing small pleural effusions with adjacent atelectasis no pneumothorax BONY STRUCTURES: Degenerative change ADDITIONAL FINDINGS None XR/XR chest 2V IMPRESSION: Developing small pleural effusions. Consider failure. Intact cardiac device Impression dictated by: Amaury Devlin M.D. 12/14/2024 3:26 PM Dictation Location: [place] [address] Electronically authenticated by: [id number] Y Date: 12/14/2024 15:26 Dictated By: Amaury Devlin D.O. Signed By: 12/14/24 1529 DD/ 1526 TD/TT: Vp Public Relations: Procedure Note Radiology, Radiologist, - 12/14/2024 [place] [address] XRay Report Signed Patient: LAURA LAWSON AMR#: [id number] : 1950cct:[id number] Age/Sex: 74 / FADM Date: 12/14/24 Loc: RAD Attending Dr: Gerardo Morris M.D. Ordering Physician: Gerardo Morris M.D. Date of Service: 12/14/24 Procedure(s): XR chest 2V Accession Number(s): [id number] cc: VLAD CESAR ; Gerardo Morris M.D. [place] [id number] Patient Name: LAURA LAWSON MRN: [facility]:[id number] date: 1950 Sex: F Assigned Patient Location: RAD Current Patient Location: RAD Accession/Order Number: [id number] Exam Date: 12/14/2024 15:25 Report Date: 12/14/2024 15:26 At the request of: GERARDO MORRIS MD Procedure: XR chest 2V Plain film chest Single view HISTORY: Cardiomyopathy COMPARISON: 06/13/2024 FINDINGS: SUPPORT DEVICES: None POSTSURGICAL CHANGES: Cardiac device intact HEART: Similar cardiomegaly PULMONARY JANUARY: Mild hilar vascular congestion MEDIASTINUM: Unremarkable LUNGS AND PLEURA: Developing small pleural effusions with adjacent atelectasis no pneumothorax BONY STRUCTURES: Degenerative change ADDITIONAL FINDINGS None XR/XR chest 2V IMPRESSION: Developing small pleural effusions. Consider failure.Intact cardiac device Impression dictated by: Amaury Devlin M.D. 12/14/2024 3:26 PM Dictation Location: [place] [address] Electronically authenticated by: [id number] Y Date: 5:26 Dictated By: Amaury Devlin D.O. Signed By:12/14/24 1529 DD/ 1526 TD/TT: Vp Public Relations: [facility] External Data Provider [facility] Final Result * (ABNORMAL) ALL CBC WITH AUTO DIFF (12/08/2024 12:12 PM EDT) TB WBC 7.6 4.0 - 11.0 10 3/uL [...] External Data Provider [facility] F inal Result [facility] * (ABNORMAL) ALL BASIC METABOLIC PANEL (12/08/2024 [...] 0.55 - 1.02 mg/dL [facility] EGFR-AF [place] 57(L) >=60 mL/min/1.7 3m 2 TBH TBH EGFR-NON AF [place] 47(L) >=60 mL/min/1.7 3m 2 TBH BUN CREATININE RATIO 20.2 TBH CALCIUM 10.0 8.5 - 10.1 mg/dL [facility] 12/08/2024 12:1 2 PM EDT 12/08/2024 12:13 PM EDT Narrative [facility] - 12/08/2024 12:54 PM EDT us Generic External Data Provider [facility] F inal Result [facility] * CA ECHO DOPPLER COMPLETE (10/21/2024 7:07 PM EDT) Anatomical Region Laterality Modality Other 10/21/2024 7:07 PM EDT Narrative 10/21/2024 7:08 [place] [address] Cardiology Report Signed Patient: LAURA LAWSON MR#: [id number] : 1950 Acct:[id number] Age/Sex: 73 / F ADM Date: 10/20/24 Loc: CARD Attending Dr: JULITO HERNANDEZ Ordering Physician: JULITO HERNANDEZ Date of Service: 10/20/24 Procedure(s): CA echo doppler complete Accession Number(s): [id number] cc: VLAD CESAR ; JULITO HERNANDEZ Patient Name: LAURA LAWSON MR#: [id number] : 1950 Exam Date: 10/20/2024 Ordering Doctor: DR JULITO HERNANDEZ M.D. ECHOCARDIOGRAM REPORT PROCEDURE: CA ECHO DOPPLER COMPLETE INDICATIONS: heart failure with reduced ejection fraction, cardiac stents COMPARISON: None. DESCRIPTION: COMPLETE ECHOCARDIOGRAM Real-time transthoracic echocardiography with 2D, M-mode, spectral and color flow Doppler performed. QUALITY: Technical quality was good. LEFT VENTRICLE: Mild dilatation. Mild concentric left ventricular hypertrophy. Systolic function is difficult to assess but appears moderately reduced. LV EF: Moderately reduced left ventricular ejection fraction, (30-35%). DIASTOLIC: ATRIAL SEPTUM: Visually appears intact. LEFT ATRIUM: Severe dilatation. RIGHT ATRIUM: Moderate dilatation. RIGHT VENTRICLE: Mild chamber dilatation. Mildly decreased right ventricular systolic function. TRICUSPID VALVE: Normal mobility and thickness. No stenosis with mild regurgitation. Doppler studies reveal moderately (45-60) elevated right sided pressures. RVSP 54 mmHg MITRAL VALVE: Mild mitral valve stenosis. Moderate mitral annular calcification. Mild mitral regurgitation. Mildly thickened leaflets with decreased mobility. AORTIC VALVE: Normal trileaflet appearance. Mildly calcified aortic valve. Mildly diminished mobility. No evidence of aortic valve stenosis. No aortic regurgitation. AORTIC ROOT: Normal diameter and appearance. Ascending aorta is normal in size. PULMONIC VALVE: Normal thickness and mobility. No stenosis. Mild regurgitation. PERICARDIUM: No evidence of pericardial effusion. IVC: IVC is dilated (2.9 cm), does not fully collapse. PLEURA: CONCLUSION: 1. The left ventricular is mildly dilated with moderately reduced systolic function. Estimated LVEF is 30 to 35%. 2. Mildly dilated right ventricle with reduced systolic function. 3. No significant valvular dysfunction. 4. Moderately elevated right-sided pressures, RVSP is 54 mmHg. Adult Echocardiography Procedure Report Left Ventricle LVEDD (3.7 - 5.6 cm): 5.48 cm LVESD (2.2 - 4.0 cm): 4.10 cm LVIVS thickness (0.6 - 1.2 cm): 1.29 cm LVPW thickness (0.5 - 1.0 cm): 1.11 cm LVOT Max Gradient: 1.32 mm[Hg] LVOT Area (cm2): 0.57 m/s Peak Velocity (LVOT): 0.57 m/s Mean Velocity (LVOT): 0.36 m/s LVOT Diameter 2.36 cm Left Atrium LA Volume Index (2D A2C): 49.46 ml/m2 Left Atrium Systolic Dimension: 4.19 cm Mitral Valve MV E to A Ratio: 1.73 Mitral Valve A-Wave Peak Velocity: 0.61 m/s Mitral Valve E-Wave Peak Velocity: 1.05 m/s Right Ventricle Aorta AO Root Diam: 3.43 cm Ascending Ao Diam: 2.94 cm Aortic Valve AoV Area (Peak Dixon): 2.16 cm2, 2.16 cm2 AoV Area (VTI): 2.19 cm2, 2.19 cm2 Peak Velocity(Antegrade Flow): 1.16 m/s Peak Gradient(Antegrade Flow): 5.37 mm[Hg] Mean Velocity(Antegrade Flow): 0.75 m/s Mean Gradient(Antegrade Flow): 2.65 mm[Hg] Velocity Time Integral: 23.33 cm Tricuspid Valve Peak Velocity (Regurgitant Flow): 1.75 m/s, 3.11 m/s Pulmonic Valve Peak Gradient: 3.92 mm[Hg], 3.37 mm[Hg], 2.40 mm[Hg] Right Atrium Right Atrium Systolic Pressure: 49.42 ml, 49.42 ml Dictated by: Julito Hernandez M.D. on 10/21/2024 at 18:55 Approved by: Julito Hernandez M.D. on 10/21/2024 at 19:07 Dictated By: JULITO HERNANDEZ Signed By: 10/21/241907 DD/ 06 TD/TT: Vp Public Relations: Procedure Note Radiology, Radiologist, MD - 10/21/2024 [place] [address] Cardiology Report Signed Patient: LAURA LAWSON AMR#: [id number] : 1950cct:[id number] Age/Sex: 73 / FADM Date: 10/20/24 Loc: CARD Attending Dr: JULITO HERNANDEZ Ordering Physician: JULITO HERNANDEZ Date of Service: 10/20/24 Procedure(s): CA echo doppler complete Accession Number(s): [id number] cc: VLAD CESAR ; JULITO HERNANDEZ Patient Name: LAURA LAWSON MR#: [id number] : 1950 Exam Date: 10/20/2024 Ordering Doctor: DR JULITO HERNANDEZ M.D. ECHOCARDIOGRAM REPORT PROCEDURE: CA ECHO DOPPLER COMPLETE INDICATIONS: heart failure with reduced ejection fraction, cardiacstents COMPARISON: None. DESCRIPTION: COMPLETE ECHOCARDIOGRAM Real-time transthoracic echocardiography with 2D, M-mode, spectral and color flow Dopplerperformed. QUALITY: Technical quality was good. LEFT VENTRICLE: Mild dilatation. Mild concentric left ventricular hypertrophy. Systolic function is difficult to assess but appearsmoderately reduced. LV EF: Moderately reduced left ventricular ejection fraction,(30-35%). DIASTOLIC: ATRIAL SEPTUM: Visually appears intact. LEFT ATRIUM: Severe dilatation. RIGHT ATRIUM: Moderate dilatation. RIGHT VENTRICLE: Mild chamber dilatation. Mildly decreased right ventricular systolic function. TRICUSPID VALVE: Normal mobility and thickness. No stenosis with mild regurgitation. Doppler studies reveal moderately (45-60) elevated rightsided pressures. RVSP 54 mmHg MITRAL VALVE: Mild mitral valve stenosis. Moderate mitral annular calcification. Mild mitral regurgitation. Mildly thickened leaflets with decreased mobility. AORTIC VALVE: Normal trileaflet appearance. Mildly calcified aorticvalve. Mildly diminished mobility. No evidence of aortic valve stenosis. Noaortic regurgitation. AORTIC ROOT: Normal diameter and appearance. Ascending aorta is normalin size. PULMONIC VALVE: Normal thickness and mobility. No stenosis. Mild regurgitation. PERICARDIUM: No evidence of pericardial effusion. IVC: IVC is dilated (2.9 cm), does not fully collapse. PLEURA: CONCLUSION: 1. The left ventricular is mildly dilated with moderately reduced systolic function. Estimated LVEF is 30 to 35%. 2. Mildly dilated right ventricle with reduced systolic function. 3. No significant valvular dysfunction. 4. Moderately elevated right-sided pressures, RVSP is 54 mmHg. Adult Echocardiography Procedure Report Left Ventricle LVEDD (3.7 - 5.6 cm): 5.48 cm LVESD (2.2 - 4.0 cm): 4.10 cm LVIVS thickness (0.6 - 1.2 cm): 1.29 cm LVPW thickness (0.5 - 1.0 cm): 1.11 cm LVOT Max Gradient: 1.32 mm[Hg] LVOT Area (cm2): 0.57 m/s Peak Velocity (LVOT): 0.57 m/s Mean Velocity (LVOT): 0.36 m/s LVOT Diameter 2.36 cm Left Atrium LA Volume Index (2D A2C): 49.46 ml/m2 Left Atrium Systolic Dimension: 4.19 cm Mitral Valve MV E to A Ratio: 1.73 Mitral Valve A-Wave Peak Velocity: 0.61 m/s Mitral Valve E-Wave Peak Velocity: 1.05 m/s Right Ventricle Aorta AO Root Diam: 3.43 cm Ascending Ao Diam: 2.94 cm Aortic Valve AoV Area (Peak Dixon): 2.16 cm2, 2.16 cm2 AoV Area (VTI): 2.19 cm2, 2.19 cm2 Peak Velocity(Antegrade Flow): 1.16 m/s Peak Gradient(Antegrade Flow): 5.37 mm[Hg] Mean Velocity(Antegrade Flow): 0.75 m/s Mean Gradient(Antegrade Flow): 2.65 mm[Hg] Velocity Time Integral: 23.33 cm Tricuspid Valve Peak Velocity (Regurgitant Flow): 1.75 m/s, 3.11 m/s Pulmonic Valve Peak Gradient: 3.92 mm[Hg], 3.37 mm[Hg], 2.40 mm[Hg] Right Atrium Right Atrium Systolic Pressure: 49.42 ml, 49.42 ml Dictated by: Julito Hernandez M.D. on 10/21/2024 at 18:55 Approved by: Julito Hernandez M.D. on 10/21/2024 at 19:07 Dictated By: JULITO HERNANDEZ Signed By:10/21/241907 DD/ 06 TD/TT: Vp Public Relations: us Generic External Data Provider [facility] Final Result * (ABNORMAL) POCT glycosylated hemoglobin (Hb A1C) docked device (10/13/2024 12:48 PM EDT) Hemoglobin A1C 8.1 Blood Venous blood specimen / Unknown 10/13/2024 12:48 PM EDT us Vlad Cesar MD POINT OF CARE TEST ENTER/EDIT ORDERABLES Final Result * MM TOMOSYNTHESIS SCREENING BI (12/04/2023 3:44 PM EDT) Anatomical Region Laterality Modality Other 12/04/2023 3:44 PM EDT Narrative 12/04/2023 3:45 PM EDT [address] [address] Mammography Report Signed Patient: LAURA LAWSON MR#: [id number] : 1950 Acct:[id number] Age/Sex: 73 / F ADM Date: 12/04/23 Loc: MAMMO Attending Dr: VLAD CESAR Ordering Physician: VLAD CESAR Results: Date of Service: 12/04/23 Follow Up: Procedure(s): MM tomosynthesis screening BI Accession Number(s): [id number] cc: VLAD CESAR Patient Name: LAURA LAWSON MR#: [id number] : 1950 Exam Date: 12/04/2023 Ordering Doctor: DR VLAD CESAR M.D. RADIOLOGY REPORT PROCEDURE: MM TOMOSYNTHESIS SCREENING BI COMPARISON: MG MAMM SCREEN 3D YANETH CAD, 01/10/2021. MG MAMM SCREEN 3D YANETH CAD, 11/06/2022. INDICATIONS: Screening for malignant neoplasm Calculator Name NCI Breast Cancer Risk Assessment Tool 5 Year Breast Cancer Risk 1.90% Lifetime Breast Cancer Risk 5.40% Personal Breast Cancer No Personal Ovarian Cancer No Treatments None Family Cancers None LOCATION: [facility] BREAST COMPOSITION: There are scattered areas of fibroglandular density. FINDINGS: DIAGNOSTIC CATEGORY 2--BENIGN FINDING. NO CHANGE FROM COMPARISON. Scattered benign-appearing calcifications are present. Scattered benign-appearing lymph nodes are present. Multiple serpiginous vessels, grossly stable RIGHT BREAST: No significant suspicious finding. LEFT BREAST: No significant suspicious finding. RECOMMENDATIONS: ROUTINE MAMMOGRAM AND CLINICAL EVALUATION IN 12 MONTHS. PLEASE NOTE: A NORMAL MAMMOGRAM DOES NOT EXCLUDE THE POSSIBILITY OF BREAST CANCER. A CLINICALLY SUSPICIOUS PALPABLE LUMP SHOULD BE BIOPSIED. Dictated by: Jordy Joe MD on 12/04/2023 at 15:40 Approved by: Jordy Joe MD on 12/04/2023 at 15:43 Dictated By: Jordy Joe M.D. Signed By: 12/04/23 1545 DD/ 1544 TD/TT: Vp Public Relations: Procedure Note Radiology, Radiologist, - 12/04/2023 [place] [address] Mammography Report Signed Patient: LAURA LAWSON AMR#: [id number] : 1950cct:[id number] Age/Sex: 73 / FADM Date: 12/04/23 Loc: MAMMO Attending Dr: VLAD CESAR Ordering Physician: VLAD CESARResults: Date of Service: 12/04/23Follow Up: Procedure(s): MM tomosynthesis screening BI Accession Number(s): [id number] cc: VLAD CESAR Patient Name: LAURA LAWSON MR#: [id number] : 1950 Exam Date: 12/04/2023 Ordering Doctor: DR VLAD CESAR M.D. RADIOLOGY REPORT PROCEDURE: MM TOMOSYNTHESIS SCREENING BI COMPARISON: MG MAMM SCREEN 3D YANETH CAD, 01/10/2021. MG MAMM SCREEN 3DBIL CAD, 11/06/2022. INDICATIONS: Screening for malignant neoplasm Calculator Name NCI Breast Cancer Risk Assessment Tool 5 Year Breast Cancer Risk 1.90% Lifetime Breast Cancer Risk 5.40% Personal Breast Cancer No Personal Ovarian Cancer No Treatments None Family Cancers None LOCATION: [facility] BREAST COMPOSITION: There are scattered areas of fibroglandulardensity. FINDINGS: DIAGNOSTIC CATEGORY 2--BENIGN FINDING. NO CHANGE FROM COMPARISON. Scattered benign-appearing calcifications are present. Scattered benign-appearing lymph nodes are present. Multiple serpiginous vessels, grossly stable RIGHT BREAST: No significant suspicious finding. LEFT BREAST: No significant suspicious finding. RECOMMENDATIONS: ROUTINE MAMMOGRAM AND CLINICAL EVALUATION IN 12 MONTHS. PLEASE NOTE: A NORMAL MAMMOGRAM DOES NOT EXCLUDE THE POSSIBILITY OFBREAST CANCER. A CLINICALLY SUSPICIOUS PALPABLE LUMP SHOULD BE BIOPSIED. Dictated by: Jordy Joe MD on 12/04/2023 at 15:40 Approved by: Jordy Joe MD on 12/04/2023 at 15:43 Dictated By: Jordy Joe M.D. Signed By:12/04/23 1545 DD/ 1544 TD/TT: Vp Public Relations: us Vlad Cesar MD [facility] Final Result * (ABNORMAL) Diabetic Retinopathy Screening - OU - Both Eyes (11/18/2023) RESULTS Retinopathy Anatomical Region Laterality Modality Head Other 11/18/2023 us Hasmukh Jameson OD OPHTH PHOTOGRAPHY Final Result * (ABNORMAL) Microalbumin / creatinine urine ratio (03/10/2023 10:58 AM EDT) CREATININE, RANDOM URINE 71 20 - 275 mg/dL [facility] ALBUMIN, URINE 30.3 See Note: mg/dL [facility] Comment: Reference Range: Reference Range Not established Results verified by repeat analysis on dilution. ALBUMIN/CREATININE RATIO, RANDOM URINE 427(H) <30 mcg/mg creat [facility] Comment: The ADA defines abnormalities in albumin excretion as follows: Albuminuria Category Result (mcg/mg creatinine) Normal to Mildly increased <30 Moderately increased 30-299 Severely increased > OR = 300 The ADA recommends that at least two of three specimens collected within a 3-6 month period be abnormal before considering a patient to be within a diagnostic category. Urine Urine specimen obtained by clean catch procedure / Unknown 03/10/2023 10:58 AM EDT 03/10/2023 10:59 AM EDT Narrative Resulting Agency Comment Performing Organization Information Site ID: QPT Name: [facility] Address: [address] [place] [address], [address] [place] [id number] Director: Haider Gonzalez MD Vlad Cesar MD LAB URINE ORDERABLES Final Res ult [facility] from Last 3 Months or Most Recently Relevant to Health Maintenance Insurance MEDICARE [facility] Care Teams Manager Route Relationship Specialty Start Date End Date Vlad Cesar MD [address] [address] PCP - General Internal Medicine 10/21/22 Vlad Cesar MD [address] [address] PCP - ACO Reach 10/31/22
--- OUTSIDE RECORDS SUMMARY | 2024-12-20 15:29 | XMS_ITS | Encounter Summary ---
Author Organization [facility] Address [address] [place] [address] Care Team Providers Care Range Technician Name Role Phone Vlad Cesar MD Primary Care Provider [phone] Vlad Cesar MD Unavailable [phone] Encounter Details Date Type Department Care Team (Late st Contact Info) Description 12/14/2024 Clinisync Result Encounter [facility] External Department [...] often do you attend chur ch or anabaptism services? Never 02/23/2024 Do you belong to any clubs o r organizations such as jehovah's witness groups, unions, fraternal or athletic groups, or [...] Recorded Patient Health Questionnaire-2 Score 0 10/13/2024 [facility]ational Stress Questionnaire Answer Date [...] any time in the past 12 m [facility], were you homeless or living [...] Office Visit [facility] 112 [facility] 110 [place] [address] Vlad Cesar MD 112 [facility] 110 [place], [place] [phone] 03/07/2025 11:50 AM EDT Office Visit [facility] [address] [place] [phone] Narinder Rubi DPM 3006 [facility] [place] 5 [place] [address] documented as of this encounter Procedures Procedure Name Priority Date/Time Associated Diagnosis Comments XR CHEST 2V 12/14/2024 3:26 PM EDT documented in this encounter Results * XR CHEST 2V (12/14/2024 3:26 PM EDT) Anatomical Region Laterality Modality Other 12/14/2024 3:26 PM EDT Narrative 12/14/2024 3:29 [place] [address] XRay Report Signed Patient: LAURA LAWSON MR#: [id number] : 1950 Acct:[id number] Age/Sex: 74 / F ADM Date: 12/14/24 Loc: RAD Attending Dr: Gerardo Edwards M.D. Ordering Physician: Gerardo Edwards M.D. Date of Service: 12/14/24 Procedure(s): XR chest 2V Accession Number(s): [id number] cc: VLAD CESAR ; Gerardo Edwards M.D. [address] [address] Patient Name: LAURA LAWSON MRN: [id number] date: 1950 Sex: F Assigned Patient Location: [facility] Current Patient Location: [facility] Accession/Order Number: [id number] Exam Date: 12/14/2024 15:25 Report Date: 12/14/2024 15:26 At the request of: GERARDO EDWARDS MD Procedure: XR chest 2V Plain film [...] Devlin M.D. 12/14/2024 3:26 PM Dictation Location: RADIO-PC-23 Electronically authenticated by: [id number] Y Date: 12/14/2024 15:26 Dictated By: Amaury Devlin D.O. Signed By: 12/14/24 1529 DD/ 1526 TD/TT: Web Design Intern: Procedure Note Radiology, Radiologist, MD - 12/14/2024 [place] [address] XRay Report Signed Patient: LAURA LAWSON AMR#: [id number] : 1950cct:[id number] Age/Sex: 74 / FADM Date: 12/14/24 Loc: RAD Attending Dr: Gerardo Edwards M.D. Ordering Physician: Gerardo Edwards M.D. Date of Service: 12/14/24 Procedure(s): XR chest 2V Accession Number(s): [id number] cc: VLAD CESAR ; Gerardo Edwards M.D. [place] [id number] Patient Name: LAURA LAWSON MRN: [facility]:[id number] date: 1950 Sex: F Assigned Patient Location: [facility] Current Patient Location: [facility] Accession/Order Number: [id number] Exam Date: 12/14/2024 15:25 Report Date: 12/14/2024 15:26 At the request of: GERARDO EDWARDS MD Procedure: XR chest 2V Plain film [...] Devlin M.D. 12/14/2024 3:26 PM Dictation Location: RADIO-PC-23 Electronically authenticated by: [id number] Y Date: 5:26 Dictated By: Amaury Devlin D.O. Signed By:12/14/24 1529 DD/ 1526 TD/TT: Web Design Intern: us Generic External Data Provider [facility] Final Result documented in this encounter Visit Diagnoses Not on filedocumented in this encounter Care Teams Range Technician Relationship Specialty Start Date End Date Vlad Cesar MD [address] [facility] 110 [place] [address] PCP - General Internal Medicine 10/21/22 Vlad Cesar MD [address] [facility] 110 [place] [address] PCP - ACO Reach 10/31/22 documented as of this encounter
--- OUTSIDE RECORDS SUMMARY | 2024-12-20 15:29 | XMS_ITS | Encounter Summary ---
Author Organization [facility] Address [address] [place] [address] Care Team Providers Care Housing Counselor Name Role Phone Vlad Cesar MD Primary Care Provider [phone] Vlad Cesar MD Unavailable Encounter Details Date Type Department Care Team (Late st Contact Info) Description 11/11/2024 Abstract [facility] 112 [facility] 110 [place] [address] Vlad Cesar MD 112 [facility] 110 [place], [place] [id number] Social History Tobacco Use Types Packs/Day Years [...] any clubs o r organizations such as mandaen groups, unions, fraternal or athletic groups, or [...] Recorded Patient Health Questionnaire-2 Score 0 10/13/2024 [facility] - [...] 112 [facility] 110 [place] [address] Vlad Cesar MD 112 [facility] 110 [place] [address] 03/07/2025 11:50 AM EDT Office Visit [facility] [address] [place] [address] Narinder Rubi DPM 3006 [facility] 5 [place] [address] documented as of this encounter Visit Diagnoses Not on filedocumented in this encounter Care Teams Housing Counselor Relationship Specialty Start Date End Date Vlad Cesar MD [address] [place] [facility] 110 [place] [address] PCP - General Internal Medicine 10/21/22 Vlad Cesar MD [address] [place] [facility] 110 [place] [address] PCP - ACO Reach 10/31/22 documented as of this encounter
--- OUTSIDE RECORDS SUMMARY | 2024-12-20 15:29 | XMS_ITS | Encounter Summary ---
Author Organization [facility] Address [address] [place] [address] Care Team Providers Care Underwriting Consultant Name Role Phone Vlad Cesar MD Primary Care Provider [phone] Vlad Cesar MD Unavailable [phone] Encounter Details Date Type Department Care Team (Late st Contact Info) Description 11/11/2024 Abstract [facility] 112 [facility] 110 [place] [address] Vlad Cesar MD 112 [facility] 110 [place], [place] [phone] Social History Tobacco Use Types Packs/Day Years [...] any clubs o r organizations such as hoahaoism groups, unions, fraternal or athletic groups, or [...] Recorded Patient Health Questionnaire-2 Score 0 10/13/2024 [facility] Occupat ional Health - Occupational [...] in the past 12 m [facility], were you homeless or living in a [...] EDT Office Visit [facility] 112 [facility] 110 [place] [address] Vlad Cesar MD 112 [facility] 110 [place] [address] 03/07/2025 11:50 AM EDT Office Visit [facility] [address] [place] [address] Narinder Rubi DPM 3006 [facility] 5 [place] [address] documented as of this encounter Visit Diagnoses Not on filedocumented in this encounter Care Teams Underwriting Consultant Relationship Specialty Start Date End Date Vlad Cesar MD 112 [facility] 110 [place] [address] PCP - General Internal Medicine 10/21/22 Vlad Cesar MD 112 [facility] 110 [place] [address] PCP - ACO Reach 10/31/22 documented as of this encounter
--- OUTSIDE RECORDS SUMMARY | 2024-12-20 15:29 | XMS_ITS | Encounter Summary ---
Author Organization [facility] Address [address] [place] [address] Care Team Providers Care Construction Site Manager Name Role Phone Vlad Cesar MD Primary Care Provider Vlad Cesar MD Unavailable [phone] Friday, Marce DOLL Unavailable [phone] Encounter Details Date Type Department Care Team (Late st Contact Info) Description 07/07/2023 Abstract [facility] [address] [facility] 110 [place] [address] Vlad Cesar MD 112 [facility] 110 [place] [address] Social History Tobacco Use Types [...] attend chur ch or shinto services? Never 01/12/2023 Do you belong to any clubs o r organizations such as jain groups, unions, fraternal or athletic groups, or [...] Recorded Patient Health Questionnaire-2 Score 0 06/25/2023 [facility]at ional [facility] - Occupational Stress Questionnaire Answer Date Recorded [...] in a half-way (including now)? No 01/12/2023 Comments Unknown Sex [...] Visit [facility] [address] [facility] 110 [place] [address] Vlad Cesar MD [address] [facility] 110 [place] [address] 03/07/2025 11:50 AM EDT Office Visit [facility] [address] [place] [address] Narinder Rubi DPM [address] [address] documented as of this encounter Visit Diagnoses Not on filedocumented in this encounter Care Teams Construction Site Manager Relationship Specialty Start Date End Date Vlad Cesar MD [address] [facility] 110 [place] [address] PCP - General Internal Medicine 10/21/22 Vlad Cesar MD [address] [place] 110 [place] [address] PCP - ACO Reach 10/31/22Friday, SHARMILA Zheng [address] [place] [address] Licensed Practical Nurse Family Medicine 09/04/23 09/08/23 documented as of this encounter
--- OUTSIDE RECORDS SUMMARY | 2024-12-20 15:30 | XMS_ITS | Encounter Summary ---
Author Organization [facility] Address [address] [place] [address] Care Team Providers Care Correctional Treatment Specialist Name Role Phone Vlad Cesar MD Primary Care Provider [phone] Vlad Cesar MD Unavailable [phone] Encounter Details Date Type Department Care Team (Late st Contact Info) Description 12/17/2023 Abstract [facility] 112 [facility] 110 [place] [address] Vlad Cesar MD 112 [facility] 110 [place], [place] [address] Social History Tobacco Use Types Packs/Day Years [...] often do you attend chur ch or jewish services? Never 01/12/2023 Do you belong to any clubs o r organizations such as yarsanism groups, unions, fraternal or athletic groups, or [...] Recorded Patient Health Questionnaire-2 Score 0 06/25/2023 [facility] Occup[facility] Questionnaire Answer Date Recorded [...] place to sleep or slept in a intermediate (including now)? No 01/12/2023 Comments Unknown Sex [...] Visit [facility] [address] [facility] 110 [place] [address] Vlad Cesar MD 112 [facility] 110 [place] [address] 03/07/2025 11:50 AM EDT Office Visit [facility] [address] [place] [address] Narinder Rubi DPM [address] [facility] 5 [place] [address] documented as of this encounter Visit Diagnoses Not on filedocumented in this encounter Care Teams Correctional Treatment Specialist Relationship Specialty Start Date End Date Vlad Cesar MD [address] [facility] 110 [place] [address] PCP - General Internal Medicine 10/21/22 Vlad Cesar MD 112 [facility] 110 [place] [phone] PCP - ACO Reach 10/31/22 documented as of this encounter
--- OUTSIDE RECORDS SUMMARY | 2024-12-20 15:30 | XMS_ITS | Encounter Summary ---
Author Organization [facility] Address [address] [place] [address] Care Team Providers Care Inside Meter Tester Name Role Phone Vlad Cesar MD Primary Care Provider [phone] Vlad Cesar MD Unavailable [phone] Encounter Details Date Type Department Care Team (Late st Contact Info) Description 10/27/2024 Abstract [facility] 112 [facility] 110 [place] [address] Vlad Cesar MD 112 [facility] 110 [place], [place] [address] Social History Tobacco Use Types Packs/Day Years [...] How often do you attend chur or scientology services? Never 02/23/2024 Do you belong to [...] Recorded Patient Health Questionnaire-2 Score 0 10/13/2024 [facility] Occupat ional Health [...] any time in the past 12 m [facility], were you homeless or [...] SHERLYN MARAVILLA 112 [facility] 110 [place] [address] Vlad Cesar MD 112 [facility] 110 [place] [address] 03/07/2025 11:50 AM EDT Office Visit [facility] [address] [place] [address] Narinder Rubi DPM 3006 [facility] [place] [address] documented as of this encounter Visit Diagnoses Not on filedocumented in this encounter Care Teams Inside Meter Tester Relationship Specialty Start Date End Date Vlad Cesar MD 112 [facility] 110 [place] [address] PCP - General Internal Medicine 10/21/22 Vlad Cesar MD 112 [facility] 110 [place] [address] PCP - ACO Reach 10/31/22 documented as of this encounter
--- OUTSIDE RECORDS SUMMARY | 2024-12-20 15:30 | XMS_ITS | Encounter Summary ---
Author Organization [facility] Address [address] [place] [address] Care Team Providers Care Rn Or Lvn Name Role Phone Vlad Cesar MD Primary Care Provider [phone] Vlad Cesar MD Unavailable [phone] Encounter Details Date Type Department Care Team (Late st Contact Info) Description 09/09/2023 Abstract [facility] [address] [facility] 110 [place] [address] Vlad Cesar MD 112 [facility] 110 [place], [place] [address] Social History Tobacco Use Types Packs/Day Years [...] often do you attend chur ch or adventist services? Never 01/12/2023 Do you belong to any clubs o r organizations such as gnosticism groups, unions, fraternal or athletic groups, or [...] Recorded Patient Health Questionnaire-2 Score 0 06/25/2023 [facility] - Occupational Stress Questionnaire Answer Date [...] in a halfway (including now)? No 01/12/2023 Comments Unknown Sex [...] Visit [facility] [address] [facility] 110 [place] [address] Vlad Cesar MD 112 [place] [facility] 110 [place] [address] 03/07/2025 11:50 AM EDT Office Visit [facility] [address] [place] [address] Narinder Rubi DPM 3006 [facility] 5 [place] [address] documented as of this encounter Visit Diagnoses Not on filedocumented in this encounter Care Teams Rn Or Lvn Relationship Specialty Start Date End Date Vlad Cesar MD [address] [facility] 110 [place] [address] PCP - General Internal Medicine 10/21/22 Vlad Cesar MD 112 [facility] 110 [place] [id number] PCP - ACO Reach 10/31/22 documented as of this encounter
--- OUTSIDE RECORDS SUMMARY | 2024-12-20 15:30 | XMS_ITS | Encounter Summary ---
Author Organization [facility] Address [address] [place] [address] Care Team Providers Care Pattern And Chain Maker Name Role Phone Vlad Cesar MD Primary Care Provider [phone] Vlad Cesar MD Unavailable [phone] Encounter Details Date Type Department Care Team (Late st Contact Info) Description 10/27/2024 Abstract [facility] 112 [facility] 110 [place] [address] Vlad Cesar MD 112 [facility] 110 [place], [place] [address] Social History Tobacco Use Types Packs/Day Years [...] How often do you attend chur or church services? Never 02/23/2024 Do you belong to [...] Patient Health Questionnaire-2 Score 0 10/13/2024 [facility] of Occupat ional [...] SHERLYN MARAVILLA 112 [facility] 110 [place] [address] Vlad Cesar MD 112 [facility] 110 [place] [address] 03/07/2025 11:50 AM EDT Office Visit [facility] [address]006 [place] [address] Narinder Rubi DPM 3006 [facility] 5 [place] [address] documented as of this encounter Visit Diagnoses Not on filedocumented in this encounter Care Teams Pattern And Chain Maker Relationship Specialty Start Date End Date Vlad Cesar MD 112 [facility] 110 [place] [address] PCP - General Internal Medicine 10/21/22 Vlad Cesar MD 112 [facility] 110 [place] [address] PCP - ACO Reach 10/31/22 documented as of this encounter
--- OUTSIDE RECORDS SUMMARY | 2024-12-20 15:30 | XMS_ITS | Encounter Summary ---
Author Organization [facility] Address [address] [place] [address] Care Team Providers Care Design Technology Professor Name Role Phone Vlad Cesar MD Primary Care Provider [phone] Vlad Cesar MD Unavailable [phone] Encounter Details Date Type Department Care Team (Late st Contact Info) Description 10/23/2023 Clinisync Result Encounter [facility] External Department Unsolicited [...] often do you attend chur ch or congregational services? Never 01/12/2023 Do you belong to [...] medical appointments or from getting medications? No 080 11/2022 In the past 12 months, has [...] place to sleep or slept in a mcc (including now)? No 01/12/2023 Comments Unknown Sex [...] Office Visit [facility] [address] [facility] 110 [place] [address] Vlad Cesar MD 112 [facility] 110 [place] [address] 03/07/2025 11:50 AM EDT Office Visit [facility] [address] [place] [address] Narinder Rubi DPM 3006 [facility] 5 [place] [address] documented as of this encounter Procedures Procedure Name Priority Date/Time Associated Diagnosis Comments ITP 10/23/2023 2:28 PM EDT documented in this encounter Results * ITP (10/23/2023 2:28 PM EDT) Anatomical Region Laterality Modality Other 10/23/2023 2:28 PM EDT Narrative 10/23/2023 8:30 PM EDT The [address] [address] Cardiac Rehab Report Signed Patient: LAURA LAWSON MR#: [id number] : 1950 Acct:[id number] Age/Sex: 72 / F ADM Date: 10/23/23 Loc: CR Attending Dr: NIRAJ GONZALES APRN Ordering Physician: NIRAJ GONZALES APRN Date of Service: 10/23/23 Procedure(s): ITP Accession Number(s): [id number] cc: The [facility] Test Date: 2023-10-23 Pat Name: LAURA LAWSON Department: Room: - Gender: Female 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 Signed By:10/23/23202910/23/232029 DD/ 1428 TD/TT: Community Development Coordinator: us Generic External Data Provider [facility] Final Result documented in this encounter Visit Diagnoses Not on filedocumented in this encounter Care Teams Design Technology Professor Relationship Specialty Start Date End Date Vlad Cesar MD [address] [facility] 110 [place] [address] PCP - General Internal Medicine 10/21/22 Vlad Cesar MD [address] [facility] 110 [place] [address] PCP - ACO Reach 10/31/22 documented as of this encounter
--- OUTSIDE RECORDS SUMMARY | 2024-12-20 15:30 | XMS_ITS | Encounter Summary ---
Author Organization [facility] Address [address] [place] [address] Care Team Providers Care Mrp Controller Name Role Phone Vlad Cesar MD Primary Care Provider [phone] Vlad Cesar MD Unavailable [phone] Encounter Details Date Type Department Care Team (Late st Contact Info) Description 12/04/2023 Clinisync Result Encounter [facility] External Department Unsolicited Vlad Cesar MD [address] [facility] 110 [place] [address] Social History Tobacco Use Types Packs/Day Years [...] often do you attend chur ch or moravian services? Never 01/12/2023 Do you belong to [...] Recorded Patient Health Questionnaire-2 Score 0 06/25/2023 [facility] - Occupational Stress Questionnaire Answer Date [...] in a longterm (including now)? No 01/12/2023 Comments Unknown Sex [...] EDT Office Visit [facility] 112 [facility] 110 [place] [address] Vlad Cesar MD 112 [facility] 110 [place] [address] 03/07/2025 11:50 AM EDT Office Visit [facility] [address] [place] [address] Narinder Rubi DPM 3006 [facility] [place] 5 [place] [address] documented as of this encounter Procedures Procedure Name Priority Date/Time Associated Diagnosis Comments MM TOMOSYNTHESIS SCREENING BI 12/04/2023 3:44 PM EDT documented in this encounter Results * MM TOMOSYNTHESIS SCREENING BI (12/04/2023 3:44 PM EDT) Anatomical Region Laterality Modality Other 12/04/2023 3:44 PM EDT Narrative 12/04/2023 3:45 PM EDT The [place] [id number] Mammography Report Signed Patient: LAURA LAWSON MR#: [id number] : 1950 Acct:[id number] Age/Sex: 73 / F ADM Date: 12/04/23 Loc: MAMMO Attending Dr: VLAD CESAR Ordering Physician: VLAD CESAR Results: Date of Service: 12/04/23 Follow Up: Procedure(s): MM tomosynthesis screening BI Accession Number(s): [id number] cc: CLEMENTE CESAREL Patient Name: LAURA LAWSON MR#: [id number] : 1950 Exam Date: 12/04/2023 Ordering Doctor: [...] LOCATION: The [facility] BREAST COMPOSITION: There are scattered areas of [...] Signed By: 12/04/23 1545 DD/ 1544 TD/TT: In Home Tutor: Procedure Note Radiology, Radiologist, - 12/04/2023 The [place] [id number] Mammography Report Signed Patient: LAURA LAWSON AMR#: [id number] : 1950cct:[id number] Age/Sex: 73 / FADM Date: 12/04/23 Loc: MAMMO Attending Dr: VLAD CESAR Ordering Physician: VLAD CESARResults: Date of Service: 12/04/23Follow Up: Procedure(s): MM tomosynthesis screening BI Accession Number(s): [id number] cc: MELBACLEMENTEVLAD Patient Name: LAURA LAWSON MR#: [id number] : 1950 Exam Date: 12/04/2023 Ordering Doctor: [...] LOCATION: The [facility] BREAST COMPOSITION: There are scattered areas of [...] M.D. Signed By:12/04/23 1545 DD/ 1544 TD/TT: In Home Tutor: Vlad Cesar MD [facility] Final Result documented in this encounter Visit Diagnoses Not on filedocumented in this encounter Care Teams Mrp Controller Relationship Specialty Start Date End Date Vlad Cesar MD [address] [facility] 110 [place] [address] PCP - General Internal Medicine 10/21/22 Vlad Cesar MD [address] [facility] 110 [place] [address] PCP - ACO Reach 10/31/22 documented as of this encounter
--- OUTSIDE RECORDS SUMMARY | 2024-12-20 15:30 | XMS_ITS | Encounter Summary ---
Author Organization [facility] Address [address] [place] [address] Care Team Providers Care Crossword Puzzle Maker Name Role Phone Vlad Cesar MD Primary Care Provider [phone] Vlad Cesar MD Unavailable Encounter Details Date Type Department Care Team (Late st Contact Info) Description 10/14/2024 Abstract [facility] 112 [facility] 110 [place] [address] Vlad Cesar MD 112 [facility] 110 [place], [place] [address] Social History Tobacco Use Types Packs/Day Years [...] How often do you attend chur or sabianism services? Never 02/23/2024 Do you belong to [...] Recorded Patient Health Questionnaire-2 Score 0 10/13/2024 [facility] of Occupat ional [...] place to sleep or slept in a fpc (including now)? No 01/12/2023 Housing Stability Vital Sign Answer Chad e Recorded In the last 12 months, was t here a time when you were not able to pay the mortgage or rent on time? No 02/23/2024 Number of Times Moved in the Last Year Not on fi le 02/23/2024 At any time in the past 12 m [facility], were you homeless or living in a fpc (including now)? No 02/23/2024 Comments Unknown Sex [...] EDT Office Visit [facility] SHERLYN MARAVILLA 112 [facility] 110 [place] [address] Vlad Cesar MD 112 [facility] 110 [place] [address] 03/07/2025 11:50 AM EDT Office Visit [facility] [address] [place] [address] Narinder Rubi DPM 3006 [facility] 5 [place] [address] documented as of this encounter Visit Diagnoses Not on filedocumented in this encounter Care Teams Crossword Puzzle Maker Relationship Specialty Start Date End Date Vlad Cesar MD [address] [place] [facility] 110 [place] [address] PCP - General Internal Medicine 10/21/22 Vlad Cesar MD [address] [facility] 110 [place] [address] PCP - ACO Reach 10/31/22 documented as of this encounter
--- OUTSIDE RECORDS SUMMARY | 2024-12-20 15:30 | XMS_ITS | Encounter Summary ---
Author Organization [facility] Address [address] [place] [address] Care Team Providers Care Grout Machine Operator Name Role Phone Vlad Cesar MD Primary Care Provider [phone] Vlad Cesar MD Unavailable [phone] Encounter Details Date Type Department Care Team (Late st Contact Info) Description 10/13/2023 Abstract [facility] [address] [facility] 110 [place] [address] Vlad Cesar MD 112 [facility] 110 [place], [place] [address] Social History Tobacco Use Types Packs/Day Years [...] often do you attend chur ch or oriental orthodox services? Never 01/12/2023 Do you belong to [...] Recorded Patient Health Questionnaire-2 Score 0 06/25/2023 [facility] Questionnaire Answer Date [...] a nursing home (including now)? No 01/12/2023 Comments Unknown Sex [...] Visit [facility] [address] [facility] 110 [place] [address] Vlad Cesar MD [address] [place] [facility] 110 [place] [address] 03/07/2025 11:50 AM EDT Office Visit [facility] [address] [place] [address] Narinder Rubi DPM 3006 [facility] 5 [place] [address] documented as of this encounter Visit Diagnoses Not on filedocumented in this encounter Care Teams Grout Machine Operator Relationship Specialty Start Date End Date Vlad Cesar MD [address] [facility] 110 [place] [address] PCP - General Internal Medicine 10/21/22 Vlad Cesar MD 112 [facility] 110 [place] [id number] PCP - ACO Reach 10/31/22 documented as of this encounter
--- OUTSIDE RECORDS SUMMARY | 2024-12-20 15:30 | XMS_ITS | Encounter Summary ---
Author Organization [facility] Address [address] [place] [address] Care Team Providers Care Inspector Material Disposition Name Role Phone Vlad Cesar MD Primary Care Provider [phone] Vlad Cesar MD Unavailable [phone] Encounter Details Date Type Department Care Team (Late st Contact Info) Description 10/21/2024 Abstract [facility] 112 [facility] 110 [place] [address] Vlad Cesar MD 112 [facility] 110 [place], [place] [address] Social History Tobacco Use Types Packs/Day Years [...] How often do you attend chur or temple services? Never 02/23/2024 Do you belong to any clubs o r organizations such as scientology groups, unions, fraternal or athletic groups, or [...] Recorded Patient Health Questionnaire-2 Score 0 10/13/2024 [facility] of Occupat ional Health - Occupational [...] any time in the past 12 m [facility], were you homeless or living in [...] EDT Office Visit [facility] SHERLYN MARAVILLA 112 [facility] 110 [place] [address] Vlad Cesar MD 112 [facility] 110 [place] [address] 03/07/2025 11:50 AM EDT Office Visit [facility] [address] [place] [address] Narinder Rubi DPM 3006 [facility] 5 [place] [address] documented as of this encounter Visit Diagnoses Not on filedocumented in this encounter Care Teams Inspector Material Disposition Relationship Specialty Start Date End Date Vlad Cesar MD [address] [place] [facility] 110 [place] [address] PCP - General Internal Medicine 10/21/22 Vlad Cesar MD [address] [place] [facility] 110 [place] [address] PCP - ACO Reach 10/31/22 documented as of this encounter
--- OUTSIDE RECORDS SUMMARY | 2024-12-20 15:30 | XMS_ITS | Encounter Summary ---
Author Organization [facility] Address [address] [place] [address] Care Team Providers Care Environmental Advisor Name Role Phone Vlad Cesar MD Primary Care Provider [phone] Vlad Cesar MD Unavailable [phone] Encounter Details Date Type Department Care Team (Late st Contact Info) Description 10/23/2023 Abstract [facility] [address] [facility] 110 [place] [address] Vlad Cesar MD 112 [facility] 110 [place], [place] [address] Social History Tobacco Use Types Packs/Day Years [...] often do you attend chur ch or sikhism services? Never 01/12/2023 Do you belong to [...] Recorded Patient Health Questionnaire-2 Score 0 06/25/2023 [facility] Occupational Stress Questionnaire Answer Date [...] in a fpc (including now)? No 01/12/2023 Comments Unknown Sex [...] Visit [facility] [address] [facility] 110 [place] [address] Vlad Cesar MD [address] [facility] 110 [place] [address] 03/07/2025 11:50 AM EDT Office Visit [facility] [address] [place] [address] Narinder Rubi DPM 3006 [facility] 5 [place] [address] documented as of this encounter Visit Diagnoses Not on filedocumented in this encounter Care Teams Environmental Advisor Relationship Specialty Start Date End Date Vlad Cesar MD [address] [facility] 110 [place] [address] PCP - General Internal Medicine 10/21/22 Vlad Cesar MD 112 [facility] 110 [place] [phone] PCP - ACO Reach 10/31/22 documented as of this encounter
--- OUTSIDE RECORDS SUMMARY | 2024-12-20 15:30 | XMS_ITS | Encounter Summary ---
Author Organization [facility] Address [address] [place] [address] Care Team Providers Care Wheel Truing Machine Tender Name Role Phone Vlad Cesar MD Primary Care Provider [phone] Vlad Cesar MD Unavailable [phone] Encounter Details Date Type Department Care Team (Late st Contact Info) Description 10/25/2024 Abstract [facility] 112 [facility] 110 [place] [address] Vlad Cesar MD 112 [facility] 110 [place], [place] [address] Social History Tobacco Use Types Packs/Day Years [...] How often do you attend chur or tenriism services? Never 02/23/2024 Do you belong to any clubs o r organizations such as taoist groups, unions, fraternal or athletic groups, or [...] Recorded Patient Health Questionnaire-2 Score 0 10/13/2024 [facility] of Occupat ional Health - [...] any time in the past 12 m [facility], were you homeless or living in a [...] EDT Office Visit [facility] SHERLYN MARAVILLA 112 [facility] 110 [place] [address] Vlad Cesar MD 112 [facility] 110 [place] [address] 03/07/2025 11:50 AM EDT Office Visit [facility] [address] [place] [address] Narinder Rubi DPM 3006 [facility] 5 [place] [address] documented as of this encounter Visit Diagnoses Not on filedocumented in this encounter Care Teams Wheel Truing Machine Tender Relationship Specialty Start Date End Date Vlad Cesar MD 112 [place] [facility] 110 [place] [address] PCP - General Internal Medicine 10/21/22 Vlad Cesar MD [address] [place] [facility] 110 [place] [address] PCP - ACO Reach 10/31/22 documented as of this encounter
--- OUTSIDE RECORDS SUMMARY | 2024-12-20 15:30 | XMS_ITS | Encounter Summary ---
Author Organization [facility] Address [address] [place] [address] Care Team Providers Care Director Of Intelligence Name Role Phone Vlad Cesar MD Primary Care Provider [phone] Vlad Cesar MD Unavailable [phone] Friday, Marce DOLL Unavailable [phone] Encounter Details Date Type Department Care Team (Late st Contact Info) Description 07/23/2023 Clinisync Result Encounter [facility] External Department Unsolicited [...] often do you attend chur ch or buddhism services? Never 01/12/2023 Do you belong to [...] Patient Health Questionnaire-2 Score 0 06/25/2023 [facility] Occupat ional Health - [...] in a chcf (including now)? No 01/12/2023 Comments Unknown Sex [...] EDT Office Visit [facility] 112 [facility] 110 [place] [address] Vlad Cesar MD 112 [facility] 110 [place] [address] 03/07/2025 11:50 AM EDT Office Visit [facility] [address] [place] [id number] Narinder Rubi DPM 3006 [facility] 5 [place] [address] documented as of this encounter Procedures Procedure Name Priority Date/Time Associated Diagnosis Comments CA ECHO DOPPLER COMPLETE 07/23/2023 7:57 PM EST documented in this encounter Results * CA ECHO DOPPLER COMPLETE (07/23/2023 7:57 PM EST) Anatomical Region Laterality Modality Other 07/23/2023 7:57 PM EST Narrative 07/23/2023 7:[address] [address] Cardiology Report Signed Patient: LAURA LAWSON MR#: [id number] : 1950 Acct:[id number] Age/Sex: 72 / F ADM Date: 07/23/23 Loc: CARD Attending Dr: NIRAJ GONZALES APRN Ordering Physician: NIRAJ GONZALES APRN Date of Service: 07/23/23 Procedure(s): CA echo doppler complete Accession Number(s): [id number] cc: VLAD CESAR ; NIRAJ GONZALES APRN Patient Name: LAURA LAWSON MR#: [id number] : 1950 Exam Date: 07/23/2023 Ordering Doctor: NIRAJ GONZALES CNP ECHOCARDIOGRAM REPORT PROCEDURE: CA ECHO DOPPLER COMPLETE INDICATIONS: Acute on chronic diastolic (congestive) heart failure COMPARISON: None. DESCRIPTION: COMPLETE ECHOCARDIOGRAM Real-time transthoracic echocardiography with 2D, M-mode, spectral and color flow Doppler performed. QUALITY: Technical quality was good. LEFT VENTRICLE: Normal chamber size. Moderate concentric left ventricular hypertrophy. Global left ventricular systolic function is moderately to severely decreased. Abnormal septal motion is likely due to bundle branch block. LV EF: Moderately to severely reduced left ventricular ejection fraction, (30%). DIASTOLIC: ATRIAL SEPTUM: LEFT ATRIUM: Severe dilatation. RIGHT ATRIUM: Mild dilatation. RIGHT VENTRICLE: Normal chamber size. Normal right ventricular systolic function. TRICUSPID VALVE: Normal mobility and thickness. No stenosis with trivial regurgitation. No evidence of pulmonary hypertension. RVSP 17 mmHg MITRAL VALVE: Moderately thickened with decreased mobility. No mitral valve stenosis. Moderate mitral annular calcification. Mild mitral regurgitation. AORTIC VALVE: Normal trileaflet appearance. Thickened aortic valve. Normal leaflet mobility. No evidence of aortic valve stenosis. DVI 0.6. No aortic regurgitation. AORTIC ROOT: Normal diameter and appearance. PULMONIC VALVE: Normal thickness and mobility. No stenosis. Mild regurgitation. PERICARDIUM: Moderate circumferential pericardial effusion. There are no echocardiographic features of cardiac tamponade physiology. IVC: Collapses with inspirations. Normal size. PLEURA: CONCLUSION: 1. Moderate concentric left ventricular hypertrophy with moderately to severely reduced systolic function. LVEF is estimated at 30%. 2. Normal right ventricular size and systolic function. 3. Severe left atrial dilatation. 4. Mild mitral regurgitation. 5. Moderate circumferential pericardial effusion with no echocardiographic features of tamponade physiology. Adult Echocardiography Procedure Report Left Ventricle LVEDD (3.7 - 5.6 cm): 5.36 cm LVESD (2.2 - 4.0 cm): 4.87 cm LVIVS thickness (0.6 - 1.2 cm): 1.37 cm LVPW thickness (0.5 - 1.0 cm): 1.52 cm e': 0.08 m/s E - e': 10.86 LVOT Max Gradient: 2.70 mm[Hg] LVOT Area (cm2): 0.82 m/s Peak Velocity (LVOT): 0.82 m/s Mean Velocity (LVOT): 0.52 m/s LVOT Diameter 1.69 cm Left Ventricular Ejection Fraction: 30 % Left Atrium LA Volume Index (2D A2C): 73.61 ml/m2 Left Atrium Systolic Dimension: 4.81 cm Mitral Valve MV E to A Ratio: 0.73 Mitral Valve A-Wave Peak Velocity: 1.25 m/s Mitral Valve E-Wave Peak Velocity: 0.92 m/s Right Ventricle RV Internal Diastolic Dimension: 4.75 cm Aorta AO Root Diam: 3.14 cm Ascending Ao Diam: 3.17 cm Aortic Valve AoV Area (Peak Dixon): 1.25 cm2, 1.25 cm2 AoV Area (VTI): 1.07 cm2, 1.07 cm2 Peak Velocity(Antegrade Flow): 1.47 m/s, 1.47 m/s Peak Gradient(Antegrade Flow): 8.67 mm[Hg], 8.67 mm[Hg] Mean Velocity(Antegrade Flow): 0.96 m/s, 0.95 m/s Mean Gradient(Antegrade Flow): 4.37 mm[Hg], 4.27 mm[Hg] Velocity Time Integral: 35.23 cm, 35.57 cm Tricuspid Valve Peak Velocity (Regurgitant Flow): 1.62 m/s, 1.84 m/s, 1.78 m/s Pulmonic Valve Mean Gradient: 2.05 mm[Hg], 2.33 mm[Hg] Mean Velocity: 0.67 m/s, 0.70 m/s Peak Velocity: 1.10 m/s Peak Gradient: 4.57 mm[Hg], 5.03 mm[Hg] Right Atrium Right Atrium Systolic Pressure: 50.67 ml, 50.67 ml Dictated by: Julito Zendejas M.D. on 07/23/2023 at 19:46 Approved by: Julito Zendejas M.D. on 07/23/2023 at 19:56 Dictated By: JULITO ZENDEJAS Signed By: 07/23/231957 DD/ 56 TD/TT: [employer] Sales Consultant: Procedure Note Radiology, Radiologist, MD - 07/23/2023 [place] [address] Cardiology Report Signed Patient: LAURA LAWSON AMR#: [id number] : 1950cct:[id number] Age/Sex: 72 / FADM Date: 07/23/23 Loc: CARD Attending Dr: NIRAJ GONZALES APRN Ordering Physician: NIRAJ GONZALSE APRN Date of Service: 07/23/23 Procedure(s): CA echo doppler complete Accession Number(s): [id number] cc: VLAD CESAR ; NIRAJ GONZALES APRN Patient Name: LAURA LAWSON MR#: [id number] : 1950 Exam Date: 07/23/2023 Ordering Doctor: NIRAJ GONZALES [employer] BILLING [employer]ER ECHOCARDIOGRAM REPORT PROCEDURE: CA ECHO DOPPLER COMPLETE INDICATIONS: Acute on chronic diastolic (congestive) heart failure COMPARISON: None. DESCRIPTION: COMPLETE ECHOCARDIOGRAM Real-time transthoracic echocardiography with 2D, M-mode, spectral and color flow Dopplerperformed. QUALITY: Technical quality was good. LEFT VENTRICLE: Normal chamber size. Moderate concentric leftventricular hypertrophy. Global left ventricular systolic function is moderately to severely decreased. Abnormal septal motion is likely due to bundle branch block. LV EF: Moderately to severely reduced left ventricular ejectionfraction, (30%). DIASTOLIC: ATRIAL SEPTUM: LEFT ATRIUM: Severe dilatation. RIGHT ATRIUM: Mild dilatation. RIGHT VENTRICLE: Normal chamber size. Normal right ventricularsystolic function. TRICUSPID VALVE: Normal mobility and thickness. No stenosis with trivial regurgitation. No evidence of pulmonary hypertension. RVSP 17 mmHg MITRAL VALVE: Moderately thickened with decreased mobility. Nomitral valve stenosis. Moderate mitral annular calcification. Mild mitral regurgitation. AORTIC VALVE: Normal trileaflet appearance. Thickened aortic valve. Normal leaflet mobility. No evidence of aortic valve stenosis. DVI 0.6.No aortic regurgitation. AORTIC ROOT: Normal diameter and appearance. PULMONIC VALVE: Normal thickness and mobility. No stenosis. Mild regurgitation. PERICARDIUM: Moderate circumferential pericardial effusion. There areno echocardiographic features of cardiac tamponade physiology. IVC: Collapses with inspirations. Normal size. PLEURA: CONCLUSION: 1. Moderate concentric left ventricular hypertrophy with moderately to severely reduced systolic function. LVEF is estimated at 30%. 2. Normal right ventricular size and systolic function. 3. Severe left atrial dilatation. 4. Mild mitral regurgitation. 5. Moderate circumferential pericardial effusion with no echocardiographic features of tamponade physiology. Adult Echocardiography Procedure Report Left Ventricle LVEDD (3.7 - 5.6 cm): 5.36 cm LVESD (2.2 - 4.0 cm): 4.87 cm LVIVS thickness (0.6 - 1.2 cm): 1.37 cm LVPW thickness (0.5 - 1.0 cm): 1.52 cm e': 0.08 m/s E - e': 10.86 LVOT Max Gradient: 2.70 mm[Hg] LVOT Area (cm2): 0.82 m/s Peak Velocity (LVOT): 0.82 m/s Mean Velocity (LVOT): 0.52 m/s LVOT Diameter 1.69 cm Left Ventricular Ejection Fraction: 30 % Left Atrium LA Volume Index (2D A2C): 73.61 ml/m2 Left Atrium Systolic Dimension: 4.81 cm Mitral Valve MV E to A Ratio: 0.73 Mitral Valve A-Wave Peak Velocity: 1.25 m/s Mitral Valve E-Wave Peak Velocity: 0.92 m/s Right Ventricle RV Internal Diastolic Dimension: 4.75 cm Aorta AO Root Diam: 3.14 cm Ascending Ao Diam: 3.17 cm Aortic Valve AoV Area (Peak Dixon): 1.25 cm2, 1.25 cm2 AoV Area (VTI): 1.07 cm2, 1.07 cm2 Peak Velocity(Antegrade Flow): 1.47 m/s, 1.47 m/s Peak Gradient(Antegrade Flow): 8.67 mm[Hg], 8.67 mm[Hg] Mean Velocity(Antegrade Flow): 0.96 m/s, 0.95 m/s Mean Gradient(Antegrade Flow): 4.37 mm[Hg], 4.27 mm[Hg] Velocity Time Integral: 35.23 cm, 35.57 cm Tricuspid Valve Peak Velocity (Regurgitant Flow): 1.62 m/s, 1.84 m/s, 1.78 m/s Pulmonic Valve Mean Gradient: 2.05 mm[Hg], 2.33 mm[Hg] Mean Velocity: 0.67 m/s, 0.70 m/s Peak Velocity: 1.10 m/s Peak Gradient: 4.57 mm[Hg], 5.03 mm[Hg] Right Atrium Right Atrium Systolic Pressure: 50.67 ml, 50.67 ml Dictated by: Julito Zendejas M.D. on 07/23/2023 at 19:46 Approved by: Julito Zendejas M.D. on 07/23/2023 at 19:56 Dictated By: JULITO ZENDEJAS Signed By:07/23/231957 DD/ 56 TD/TT: [employer] Sales Consultant: Generic External Data Provider [facility] Final Result documented in this encounter Visit Diagnoses Not on filedocumented in this encounter Care Teams Director Of Intelligence Relationship Specialty Start Date End Date Vlad Cesar MD [address] [place] [address] [place] [address] PCP - General Internal Medicine 10/21/22 Vlad Cesar MD [address] [place] [address] [place] [address] PCP - ACO Reach 10/31/22FridayMarce LPN [address] [place] [address] Licensed Practical Nurse Family Medicine 09/04/23 09/08/23 documented as of this encounter
--- OUTSIDE RECORDS SUMMARY | 2024-12-20 15:30 | XMS_ITS | Encounter Summary ---
Author Organization [facility] Address [address] [place] [address] Care Team Providers Care Buffer Inflated Pad Name Role Phone Vlad Cesar MD Primary Care Provider [phone] Vlad Cesar MD Unavailable [phone] Encounter Details Date Type Department Care Team (Late st Contact Info) Description 10/26/2024 Abstract [facility] 112 [facility] 110 [place] [address] Vlad Cesar MD 112 [facility] 110 [place], [place] [id number] Social History Tobacco Use Types Packs/Day Years [...] any clubs o r organizations such as temple groups, unions, fraternal or athletic groups, or [...] Recorded Patient Health Questionnaire-2 Score 0 10/13/2024 [facility] of Occupat ional Health - Occupational Stress [...] in a mcfp (including now)? No 01/12/2023 Housing Stability Vital Sign Answer Chad e Recorded In the last 12 months, was t here a time when you were not able to pay the mortgage or rent on time? No 02/23/2024 Number of Times Moved in the Last Year Not on fi le 02/23/2024 At any time in the past 12 m [facility], were you homeless or living in a mcfp (including now)? No 02/23/2024 Comments Unknown Sex [...] 112 [facility] 110 [place] [address] Vlad Cesar MD 112 [facility] 110 [place] [address] 03/07/2025 11:50 AM EDT Office Visit [facility] [address] [place] [address] Narinder Rubi DPM 3006 [facility] 5 [place] [address] documented as of this encounter Visit Diagnoses Not on filedocumented in this encounter Care Teams Buffer Inflated Pad Relationship Specialty Start Date End Date Vlad Cesar MD 112 [facility] 110 [place] [address] PCP - General Internal Medicine 10/21/22 Vlad Cesar MD 112 [facility] 110 [place] [address] PCP - ACO Reach 10/31/22 documented as of this encounter
--- OUTSIDE RECORDS SUMMARY | 2024-12-20 15:30 | XMS_ITS | Encounter Summary ---
Author Organization [facility] Address [address] [place] [address] Care Team Providers Care Dice Table Operator Name Role Phone Vlad Cesar MD Primary Care Provider [phone] Vlad Cesar MD Unavailable [phone] Encounter Details Date Type Department Care Team (Late st Contact Info) Description 09/12/2023 Abstract [facility] 112 [facility] 110 [place] [address] Vlad Cesar MD 112 [facility] 110 [place], [place] [phone] Social History Tobacco Use Types Packs/Day Years [...] Recorded Patient Health Questionnaire-2 Score 0 06/25/2023 [facility] Occupational Stress Questionnaire Answer Date Recorded [...] Visit [facility] [address] [facility] 110 [place] [address] Vlad Cesar MD 112 [facility] 110 [place] [address] 03/07/2025 11:50 AM EDT Office Visit [facility] [address] [place] [phone] Narinder Rubi DPM 3006 [facility] 5 [place] [address] documented as of this encounter Visit Diagnoses Not on filedocumented in this encounter Care Teams Dice Table Operator Relationship Specialty Start Date End Date Vlad Cesar MD [address] [place] 110 [place] [address] PCP - General Internal Medicine 10/21/22 Vlad Cesar MD 112 [facility] 110 [place] [phone] PCP - ACO Reach 10/31/22 documented as of this encounter
--- OUTSIDE RECORDS SUMMARY | 2024-12-20 15:30 | XMS_ITS | Encounter Summary ---
Author Organization [facility] Address [address] [place] [address] Care Team Providers Care Flight Deck Officer Name Role Phone Vlad Cesar MD Primary Care Provider [phone] Vlad Cesar MD Unavailable [phone] Encounter Details Date Type Department Care Team (Late st Contact Info) Description 10/09/2023 Abstract [facility] [address] [facility] [facility] 110 [place] [address] Vlad Cesar MD 112 [facility] 110 [place], [place] [phone] Social History Tobacco Use Types Packs/Day Years [...] often do you attend chur ch or pentecostal services? Never 01/12/2023 Do you belong to [...] Recorded Patient Health Questionnaire-2 Score 0 06/25/2023 [facility] Questionnaire Answer Date Recorded [...] in a prison (including now)? No 01/12/2023 Comments Unknown Sex [...] Visit [facility] [address] [facility] 110 [place] [address] Vlad Cesar MD 112 [facility] 110 [place] [address] 03/07/2025 11:50 AM EDT Office Visit [facility] [address] [place] [address] Narinder Rubi DPM 3006 [facility] 5 [place] [address] documented as of this encounter Visit Diagnoses Not on filedocumented in this encounter Care Teams Flight Deck Officer Relationship Specialty Start Date End Date Vlad Cesar MD [address] [facility] 110 [place] [address] PCP - General Internal Medicine 10/21/22 Vlad Cesar MD 112 [facility] 110 [place] [id number] PCP - ACO Reach 10/31/22 documented as of this encounter
--- OUTSIDE RECORDS SUMMARY | 2024-12-20 15:30 | XMS_ITS | Encounter Summary ---
Author Organization [facility] Address [address] [place] [address] Care Team Providers Care Vocational Evaluator Name Role Phone Vlad Cesar MD Primary Care Provider [phone] Vlad Cesar MD Unavailable [phone] Encounter Details Date Type Department Care Team (Late st Contact Info) Description 11/08/2024 Abstract [facility] 112 [facility] 110 [place] [address] Vlad Cesar MD [address] [facility] 110 [place], [place] [phone] Social History Tobacco Use Types Packs/Day Years [...] How often do you attend chur or lutheran services? Never 02/23/2024 Do you belong to any clubs o r organizations such as sabianism groups, unions, fraternal or athletic groups, or [...] Office Visit [facility] 112 [facility] 110 [place] [address] Vlad Cesar MD [address] [facility] 110 [place] [address] 03/07/2025 11:50 AM EDT Office Visit [facility] [address] [place] [address] Narinder Rubi DPM 3006 [facility] 5 [place] [address] documented as of this encounter Visit Diagnoses Not on filedocumented in this encounter Care Teams Vocational Evaluator Relationship Specialty Start Date End Date Vlad Cesar MD 112 [facility] 110 [place] [address] PCP - General Internal Medicine 10/21/22 Vlad Cesar MD 112 [facility] 110 [place] [address] PCP - ACO Reach 10/31/22 documented as of this encounter
--- OUTSIDE RECORDS SUMMARY | 2024-12-20 15:30 | XMS_ITS | Clinical Summary ---
Author Organization [facility] Address [id number] [place] [address] Care Team Providers Care Supervisor Dumping Name Role Phone Unavailable Primary Care Provider [...] Medical Devices Not on file Insurance MEDICARE [facility] INSURANCE
--- OUTSIDE RECORDS SUMMARY | 2024-12-20 15:30 | XMS_ITS | Encounter Summary ---
Author Organization [facility] Address [address] [place] [address] Care Team Providers Care Grainer Machine Name Role Phone Vlad Cesar MD Primary Care Provider [phone] Vlad Cesar MD Unavailable Encounter Details Date Type Department Care Team (Late st Contact Info) Description 11/19/2024 Abstract [facility] 112 [facility] 110 [place] [address] Vlad Cesar MD 112 [facility] 110 [place], [place] [phone] Social History Tobacco Use Types Packs/Day Years [...] any clubs o r organizations such as samaritan groups, unions, fraternal or athletic groups, or [...] Recorded Patient Health Questionnaire-2 Score 0 10/13/2024 [facility] of Occupat ional Health [...] place to sleep or slept in a care home (including now)? No 01/12/2023 Housing Stability Vital Sign Answer Chad e Recorded In the last 12 months, was t here a time when you were not able to pay the mortgage or rent on time? No 02/23/2024 Number of Times Moved in the Last Year Not on fi le 02/23/2024 At any time in the past 12 m [facility], were you homeless or living in a care home (including now)? No 02/23/2024 Comments Unknown [...] [facility] 110 [place] [address] Vlad Cesar MD 112 [facility] 110 [place] [address] 03/07/2025 11:50 AM EDT Office Visit [facility] [address] [place] [address] Narinder Rubi DPM 3006 [facility] 5 [place] [address] documented as of this encounter Visit Diagnoses Not on filedocumented in this encounter Care Teams Grainer Machine Relationship Specialty Start Date End Date Vlad Cesar MD 112 [facility] 110 [place] [address] PCP - General Internal Medicine 10/21/22 Vlad Cesar MD 112 [facility] 110 [place] [address] PCP - ACO Reach 10/31/22 documented as of this encounter
--- OUTSIDE RECORDS SUMMARY | 2024-12-20 15:30 | XMS_ITS | Encounter Summary ---
Author Organization [facility] Address [address] [place] [address] Care Team Providers Care Broiler Supervisor Name Role Phone Vlad Cesar MD Primary Care Provider [phone] Vlad Cesar MD Unavailable [phone] Friday, Marce DOLL Unavailable [phone] Encounter Details Date Type Department Care Team (Late st Contact Info) Description 08/14/2023 Clinisync Result Encounter [facility] External Department Unsolicited [...] often do you attend chur ch or judaism services? Never 01/12/2023 Do you belong to [...] Recorded Patient Health Questionnaire-2 Score 0 06/25/2023 [facility] - [...] in a detention (including now)? No 01/12/2023 Comments Unknown Sex [...] EDT Office Visit [facility] 112 [facility] 110 [place] [address] Vlad Cesar MD 112 [facility] 110 [place] [address] 03/07/2025 11:50 AM EDT Office Visit [facility] POD [address] [place] [id number] Narinder Rubi DPM [facility] 5 [place] [address] documented as of this encounter Procedures Procedure Name Priority Date/Time Associated Diagnosis Comments CARD ECHO LIMITED STUDY 08/14/2023 5:01 PM EST documented in this encounter Results * CARD ECHO LIMITED STUDY (08/14/2023 5:01 PM EST) Anatomical Region Laterality Modality Radiographic Nicolle ging 08/14/2023 5:01 PM EST Narrative 08/14/2023 5:03 [place] [address] Cardiology Report Signed Patient: LAURA LAWSON MR#: [id number] : 1950 Acct:[id number] Age/Sex: 72 / F ADM Date: 08/14/23 Loc: CARD Attending Dr: NIRAJ GONZALES APRN Ordering Physician: NIRAJ GONZALES APRN Date of Service: 08/14/23 Procedure(s): CA echo limited Accession Number(s): [id number] cc: VLAD CESAR ; NIRAJ GONZALES APRN Patient Name: LAURA LAWSON MR#: [id number] : 1950 Exam Date: 08/14/2023 Ordering Doctor: NIRAJ GONZALES CNP ECHOCARDIOGRAM REPORT PROCEDURE: CA ECHO LIMITED INDICATIONS: Acute systolic (congestive) heart failure COMPARISON: None. DESCRIPTION: Limited ECHOCARDIOGRAM Real-time transthoracic echocardiography with 2D and M-mode performed. QUALITY: Technical quality was good. LEFT VENTRICLE: Normal chamber size. Moderate concentric left ventricular hypertrophy. Global left ventricular systolic function is mildly decreased. Abnormal septal motion likely due to bundle branch block. LV EF: Visual estimation of left ventricular ejection fraction is 45% DIASTOLIC: ATRIAL SEPTUM: LEFT ATRIUM: Moderate dilatation. RIGHT ATRIUM: Mild dilatation. RIGHT VENTRICLE: Normal chamber size. Normal right ventricular systolic function. TRICUSPID VALVE: Normal mobility and thickness. MITRAL VALVE: Normal mobility and thickness. Mild mitral annular calcification. AORTIC VALVE: Normal trileaflet appearance. Mildly calcified aortic valve. Normal leaflet mobility. AORTIC ROOT: Normal diameter and appearance. PULMONIC VALVE: Not well visualized. PERICARDIUM: Small pericardial effusion. Measuring 1.3 cm IVC: Collapses with inspirations. Normal size. PLEURA: CONCLUSION: 1. Moderate concentric left ventricular hypertrophy with mildly reduced systolic function. LVEF is estimated at 45%. 2. Normal right ventricular size and systolic function. 3. Small pericardial effusion. 4. Limited study performed with no Doppler interrogation as requested. Adult Echocardiography Procedure Report Left Ventricle LVEDD (3.7 - 5.6 cm): 5.02 cm LVESD (2.2 - 4.0 cm): 4.25 cm LVIVS thickness (0.6 - 1.2 cm): 1.26 cm LVPW thickness (0.5 - 1.0 cm): 1.37 cm LVOT Diameter 1.84 cm Left Ventricular Ejection Fraction: 45% Left Atrium LA Volume Index (2D A2C): 62.89 ml/m2 Left Atrium Systolic Dimension: 4.26 cm Mitral Valve Right Ventricle RV Internal Diastolic Dimension: 3.59 cm Aorta AO Root Diam: 2.72 cm Aortic Valve Tricuspid Valve Pulmonic Valve Right Atrium Right Atrium Systolic Pressure: 33.07 ml, 33.07 ml Dictated by: Julito Zendejas M.D. on 08/14/2023 at 16:57 Approved by: Julito Zendejas M.D. on 08/14/2023 at 17:01 Dictated By: JULITO ZENDEJAS Signed By: 08/14/231702 DD/ 00 TD/TT: Chemical Production Technician: Procedure Note Radiology, Radiologist, MD - 08/14/2023 [place] [address] Cardiology Report Signed Patient: LAURA LAWSON AMR#: [id number] : 1950cct:[id number] Age/Sex: 72 / FADM Date: 08/14/23 Loc: CARD Attending Dr: NIRAJ GONZALES APRN Ordering Physician: NIRAJ GONZALES APRN Date of Service: 08/14/23 Procedure(s): CA echo limited Accession Number(s): [id number] cc: VLAD CESAR ; NIRAJ GONZALES APRN Patient Name: LAURA LAWSON MR#: [id number] : 1950 Exam Date: 08/14/2023 Ordering Doctor: NIRAJ GONZALES CNP ECHOCARDIOGRAM REPORT PROCEDURE: CA ECHO LIMITED INDICATIONS: Acute systolic (congestive) heart failure COMPARISON: None. DESCRIPTION: Limited ECHOCARDIOGRAM Real-time transthoracic echocardiography with 2D and M-mode performed. QUALITY: Technical quality was good. LEFT VENTRICLE: Normal chamber size. Moderate concentric leftventricular hypertrophy. Global left ventricular systolic function is mildlydecreased. Abnormal septal motion likely due to bundle branch block. LV EF: Visual estimation of left ventricular ejection fraction is 45% DIASTOLIC: ATRIAL SEPTUM: LEFT ATRIUM: Moderate dilatation. RIGHT ATRIUM: Mild dilatation. RIGHT VENTRICLE: Normal chamber size. Normal right ventricularsystolic function. TRICUSPID VALVE: Normal mobility and thickness. MITRAL VALVE: Normal mobility and thickness. Mild mitral annular calcification. AORTIC VALVE: Normal trileaflet appearance. Mildly calcified aorticvalve. Normal leaflet mobility. AORTIC ROOT: Normal diameter and appearance. PULMONIC VALVE: Not well visualized. PERICARDIUM: Small pericardial effusion. Measuring 1.3 cm IVC: Collapses with inspirations. Normal size. PLEURA: CONCLUSION: 1. Moderate concentric left ventricular hypertrophy with mildly reduced systolic function. LVEF is estimated at 45%. 2. Normal right ventricular size and systolic function. 3. Small pericardial effusion. 4. Limited study performed with no Doppler interrogation as requested. Adult Echocardiography Procedure Report Left Ventricle LVEDD (3.7 - 5.6 cm): 5.02 cm LVESD (2.2 - 4.0 cm): 4.25 cm LVIVS thickness (0.6 - 1.2 cm): 1.26 cm LVPW thickness (0.5 - 1.0 cm): 1.37 cm LVOT Diameter 1.84 cm Left Ventricular Ejection Fraction: 45% Left Atrium LA Volume Index (2D A2C): 62.89 ml/m2 Left Atrium Systolic Dimension: 4.26 cm Mitral Valve Right Ventricle RV Internal Diastolic Dimension: 3.59 cm Aorta AO Root Diam: 2.72 cm Aortic Valve Tricuspid Valve Pulmonic Valve Right Atrium Right Atrium Systolic Pressure: 33.07 ml, 33.07 ml Dictated by: Julito Zendejas M.D. on 08/14/2023 at 16:57 Approved by: Julito Zendejas M.D. on 08/14/2023 at 17:01 Dictated By: JULITO ZENDEJAS Signed By:08/14/231702 DD/ 00 TD/TT: Chemical Production Technician: Generic External Data Provider IMG XR PROCEDURES Final Result documented in this encounter Visit Diagnoses Not on filedocumented in this encounter Care Teams Broiler Supervisor Relationship Specialty Start Date End Date Vlad Cesar MD [address] [place] [address] PCP - General Internal Medicine 10/21/22 Vlad Cesar MD [address] [place] [address] [place] [address] PCP - ACO Reach 10/31/22Friday, SHARMILA Zheng 112 [facility] [address] [place] [address] Licensed Practical Nurse Family Medicine 09/04/23 09/08/23 documented as of this encounter
--- OUTSIDE RECORDS SUMMARY | 2024-12-20 15:30 | XMS_ITS | Encounter Summary ---
Author Organization [facility] Address [address] [place] [address] Care Team Providers Care Woodenware Assembler Name Role Phone Vlad Cesar MD Primary Care Provider [phone] Vlad Cesar MD Unavailable [phone] Encounter Details Date Type Department Care Team (Late st Contact Info) Description 10/27/2024 Abstract [facility] 112 [facility] 110 [place] [address] Vlad Cesar MD 112 [facility] 110 [place], [place] [address] Social History Tobacco Use Types Packs/Day Years [...] How often do you attend chur or sikh services? Never 02/23/2024 Do you belong to any clubs o r organizations such as religious groups, unions, fraternal or athletic groups, or [...] Recorded Patient Health Questionnaire-2 Score 0 10/13/2024 [facility] - [...] SHERLYN MARAVILLA 112 [facility] 110 [place] [address] Vlad Cesar MD 112 [facility] 110 [place] [address] 03/07/2025 11:50 AM EDT Office Visit [facility] [address] [place] [address] Narinder Rubi DPM 3006 [facility] 5 [place] [address] documented as of this encounter Visit Diagnoses Not on filedocumented in this encounter Care Teams Woodenware Assembler Relationship Specialty Start Date End Date Vlad Cesar MD 112 [place] [facility] 110 [place] [address] PCP - General Internal Medicine 10/21/22 Vlad Cesar MD [address] [place] [facility] 110 [place] [address] PCP - ACO Reach 10/31/22 documented as of this encounter
--- OUTSIDE RECORDS SUMMARY | 2024-12-20 15:30 | XMS_ITS | Encounter Summary ---
Author Organization [facility] Address [address] [place] [address] Care Team Providers Care Aeronautics Commission Director Name Role Phone Vlad Cesar MD Primary Care Provider [phone] Vlad Cesar MD Unavailable [phone] Encounter Details Date Type Department Care Team (Late st Contact Info) Description 11/09/2024 Abstract [facility] 112 [facility] 110 [place] [address] Vlad Cesar MD 112 [facility] 110 [place], [place] [id number] Social History Tobacco Use Types Packs/Day Years [...] Patient Health Questionnaire-2 Score 0 10/13/2024 [facility] - [...] in a intermediate (including now)? No 01/12/2023 Housing Stability Vital Sign Answer Chad e Recorded In the last 12 months, was t here a time when you were not able to pay the mortgage or rent on time? No 02/23/2024 Number of Times Moved in the Last Year Not on fi le 02/23/2024 At any time in the past 12 m [facility], were you homeless or living in a intermediate (including now)? No 02/23/2024 Comments Unknown Sex [...] SHERLYN MARAVILLA 112 [facility] 110 [place] [address] Vlad Cesar MD 112 [facility] 110 [place] [address] 03/07/2025 11:50 AM EDT Office Visit [facility] [address] [place] [address] Narinder Rubi DPM 3006 [facility] 5 [place] [address] documented as of this encounter Visit Diagnoses Not on filedocumented in this encounter Care Teams Aeronautics Commission Director Relationship Specialty Start Date End Date Vlad Cesar MD 112 [facility] 110 [place] [address] PCP - General Internal Medicine 10/21/22 Vlad Cesar MD 112 [facility] 110 [place] [address] PCP - ACO Reach 10/31/22 documented as of this encounter
--- OUTSIDE RECORDS SUMMARY | 2024-12-20 15:31 | XMS_ITS | Encounter Summary ---
Author Organization [facility] Address [address] [place] [address] Care Team Providers Care Resource Protection Specialist Name Role Phone Vlad Cesar MD Primary Care Provider [phone] Vlad Cesar MD Unavailable [phone] Encounter Details Date Type Department Care Team (Late st Contact Info) Description 01/08/2024 Orders Only [facility] [address] [place] [address] [place] [address] Anisa Shaffer, DIRECTOR OF DIAGNOSTIC IMAGING [address] [place] [address] Acute bronchitis, unspecified organism Social History Tobacco Use Types Packs/Day Years [...] Score 0 06/25/2023 [facility] - Occupational Stress Questionnaire Answer Date [...] CI FM 112 [facility] 110 [place] [address] Vlad Cesar MD 112 [facility] 110 [place] [address] 03/07/2025 11:50 AM EDT Office Visit [facility] [address] [place] [address] Narinder Rubi DPM 3006 [facility] 5 [place] [address] documented as of this encounter Visit Diagnoses Diagnosis Acute bronchitis, unspecified organism documented in this encounter Care Teams Resource Protection Specialist Relationship Specialty Start Date End Date Vlad Cesar MD [address] [place] [facility] 110 [place] [address] PCP - General Internal Medicine 10/21/22 Vlad Cesar MD 112 [facility] 110 [place] [address] PCP - ACO Reach 10/31/22 documented as of this encounter
[2024-12-20 16:59] LABS: Anion Gap 12.7; Blood Urea Nitrogen 25.0 mg/dL (7.0-18.0); Calcium 9.9 mg/dL (8.5-10.1); Carbon Dioxide 30.4 mmol/L (21.0-32.0); Chloride 101 mmol/L (98-107); Estimated GFR (African America >60 (>=60 mL/min/1.73m^2); Estimated GFR (Non-African Ame 50 (>=60 mL/min/1.73m^2); Glucose 394 mg/dL (74-106); Potassium 4.1 mmol/L (3.5-5.1); Sodium 140 mmol/L (136-145)
[2024-12-20 17:05] LABS: NT Pro B Type Natriuretic Pept 11221.0 pg/mL (<=900.0)
== END 2024-12-20 15:24 | disposition home or self-care (01) ==
LOC: LAB 15:24
PROVIDERS: PCP Internal Medicine
DX: I50.22 Chronic systolic (congestive) heart failure (principal)
CPT/HCPCS: 36415; 80048; 83880

== ENCOUNTER 2025-03-14 07:29 | Outpatient (RCR) | payer MEDICARE, OTHER, SELFPAY ==
--- NOTE | 2024-11-17 12:53 | CR1_ITS ---
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 Electronically Signed On 11-17-2024 17:25:09 EDT by Jorje Camarillo
--- NOTE | 2024-11-22 10:42 | CR1_ITS ---
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 Electronically Signed On 11-22-2024 18:31:15 EDT by Jorje Camarillo
--- NOTE | 2024-12-15 09:32 | CR1_ITS ---
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 She is encouraged to participate in cardiac rehabilitation and be compliant with cardiology recommendations, especially regarding diet and fluid restrictions. Electronically Signed On 12-15-2024 10:11:58 EDT by Jorje Camarillo
--- NOTE | 2025-01-12 10:08 | PC.NURSE ---
out reach letter sent to patient as she has not been seen post device placement. patient has called in an spoke to this rn and [facility] staff regarding increased fatigue post procedure. Pt was encouraged to return to regain strength
--- NOTE | 2025-01-14 09:49 | CR1_ITS ---
[facility] Test Date: 2025-01-14 Pat Name: LAURA LAWSON Department: Room: - Gender: Female Clearance Coordinator: : 1950 Requested By: JULITO HERNANDEZ M.D. Order Number: [id number] Veronica MD: JULITO HERNANDEZ M.D. Interpretive Statements Patient may continue cardiac rehab as outlined in the treatment plan. Electronically Signed On 01-14-2025 10:28:12 EDT by JULITO HERNANDEZ M.D.
--- NOTE | 2025-02-09 07:55 | PC.NURSE ---
spoke to patient last week about returning to rehab, she was unsure she was able. this rn confirmed with provider from [facility] through judy chavez that patient could return at any time and was encouraged to do so soon. a voicemail was left for the patient with this information and a letter sent last week. we will follow up if we do not hear from her
--- NOTE | 2025-02-14 07:23 | CR1_ITS ---
[facility] Test Date: 2025-02-14 Pat Name: LAURA LAWSON Department: Room: - Gender: Female Repair Service Dispatcher: : 1950 Requested By: JULITO HERNANDEZ M.D. Order Number: [id number] Veronica MD: JULITO HERNANDEZ M.D. Interpretive Statements Patient may continue cardiac rehab as outlined in the treatment plan. Electronically Signed On 02-23-2025 18:00:31 EDT by JULITO HERNANDEZ M.D.
--- NOTE | 2025-02-14 13:48 | PC.NURSE ---
called patient unable to connect or leave a voicemail. will try again
--- NOTE | 2025-02-23 09:22 | PC.NURSE ---
correction outreach letter sent, patient has until march 11 to return communication or be discharged from the program per the attendance form. We would love to see the patient return and hope to hear from them soon.
--- NOTE | 2025-03-16 07:46 | CR1_ITS ---
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 Interpretive Statements Patient may continue cardiac rehab as outlined in the treatment plan. Electronically Signed On 03-16-2025 17:34:12 EDT by JULITO HERNANDEZ M.D.
--- NOTE | 2025-04-06 | CR1_ITS ---
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 Interpretive Statements Session Date: Electronically Signed On 04-06-2025 19:29:21 EDT by JULITO HERNANDEZ M.D.
--- NOTE | 2025-04-06 13:55 | PC.NURSE ---
Patient sent outreach letter today notifying her that she will be discharged due to non-attendance. Patient has some chronic lower extremity wounds and is undergoing testing at this time for PVD or possible other vascular issues. We encourage her to come back when she is stable and able bodied enough to return as we do feel she will benefit from attendance.
== END 2025-04-06 14:09 | disposition home or self-care (01) ==
LOC: CR 07:29
PROVIDERS: PCP Internal Medicine; Visit Provider Internal Medicine Cardiovascular Disease
DX: I21.9 Acute myocardial infarction, unspecified (principal); Z98.61 Coronary angioplasty status; I50.9 Heart failure, unspecified
CPT/HCPCS: 93798

== ENCOUNTER 2025-03-15 13:32 | Emergency (ER) | payer MEDICARE, OTHER, SELFPAY ==
[2025-03-15] VITALS (18 sets, daily range): BP systolic 110–136; BP diastolic 62–70; PULSE 60; TEMP 36.8; O2SAT 93–99; BMI 40.1
--- OUTSIDE RECORDS SUMMARY | 2025-03-15 13:50 | XMS_ITS | CCD ---
Author Organization [facility] Care Team Providers Care Help Desk Associate Name Role Phone PHYSICIAN, DEFAULT Admitting Unavailable PHYSICIAN, DEFAULT Attending Unavailable ABRAHAM CESAR Primary Care Unavailable PHYSICIAN, DEFAULT Admitting Unavailable PHYSICIAN, DEFAULT Attending Unavailable ABRAHAM CESAR Primary Care Unavailable Devang Saavedra Unavailable Abner Roa Unavailable MD Abner oRa Attending Provider [phone] MARK Cesar Primary Care Provider MD [...] MD Roman Rosales E Other Provider MD Gregory Riccardo Other Provider MD Edie Granados Other Provider MD Eddy Luu Other Provider DO Laine Swan Other Provider Al MD Clemente Servin Other Provider DO Edwardo Ramirez Other Provider [phone] DO Ziggy Vernon Other Provider DOTTY Degroot Other Provider DO Noam Albarado Other Provider MD Jacobo Montes Other Provider KENDALL Flowers Other Provider Unavailable MARK Cesar Primary Care Provider MD Abner Roa Admit Provider MD Abner Roa Attending Provider MD Chidi Bowen Admit Provider MD Chidi Bowen Attending Provider KENDALL Mancilla Other Provider Unavailable Gearheart, RN Janice Other Provider Unavailable Marcelino RN Jessica Other Provider Unavailable KENDALL Borges Other Provider Unavailable KENDALL Luong Other Provider Unavailable KENDALL Gardner Other Provider Unavailable MD Meliton Schwartz Other Provider MD Fred Nash Other Provider Dials, PLATFORM BUILDER Mirtha M Other Provider DO Yesi Dickens [...] Clemente Dempsey Other Provider DO Edwardo Ramirez Other Provider [phone] DO Janeen Ziggy Mona Other Provider [phone] DOTTY Degroot Other Provider DO Noam Albarado Other Provider [phone] MD Jacobo Montes M Other Provider [phone] KENDALL Flowers Other Provider Unavailable Melba, MARK Chu Primary Care Provider MD Abner Roa Attending Provider Melba, MARK Chu Primary Care Provider [phone] MD Abner Roa Attending Provider MELBA, DR CHU Primary Care Unavailable HAY ., DR PRICE Attending Unavailable HAY ., DR PRICE Consulting Unavailable HAY ., DR PRICE Admitting Unavailable YATES, RUSSELL Consulting Unavailable MELBA, DR CHU Attending Unavailable MELBA, DR CHU Consulting Unavailable MELBA, DR CHU Primary Care Unavailable CESAR, DR CHU Admitting Unavailable CESAR, DR CHU Admitting Unavailable CESAR, DR CHU Attending Unavailable MELBA, DR CHU Consulting Unavailable MELBA, DR CHU Primary Care Unavailable MARK Cesar Primary Care Provider MD Abner Roa Attending Provider Abraham Cesar MD Primary Care Provider Abraham Cesar MD Unavailable Melba, MARK Chu Primary Care Provider [phone] MD Abner Roa Attending Provider ROBBI URIBE Attending Unavailable CASEY العلي Attending Unavailable ROBBI URIBE Referring Unavailable Jason Contreras MD, May Unavailable Unavailable Abraham Cesar II Primary Care Provider Keri BREWER, Devang Milian Attending Provider Amaury Chin DO Attending Provider Unavailab Markos Rodriguez Attending Unavailable Luigi Montana Attending Unavailable Luigi Montana Admitting Unavailable [facility] Cardio, XXXX Consulting Unavailable Selvin Yeh Attending Unavailable ABRAHAM CESAR Primary Care Physician [phone] Nan, Luigi Consulting Unavailable Nan, Luigi Consulting Unavailable MD Luigi Montana Consulting Unavailable Unavailable Primary Care Provider UnavailAbraham Leon II Primary Care Provider Molly Gallegos APRN Attending Provider [phone] Abner Roa MD Attending Provider Selvin Yeh Attending Unavailable Nan, Luigi Consulting Unavailable Nan, Luigi Admitting Unavailable Nan, Luigi Consulting Unavailable Nan, Luigi Consulting Unavailable [facility] [place] Cardio, XXXX Consulting Unavailable Karl Cesar IIel Primary Care Provider Molly Gallegos APRN Attending Provider Karine Foote LPN Unavailable Al Shweiki, Hemant Attending Unavailable Al Shweiki, Hemant Referring Unavailable Al Shweiki, Hemant Attending Unavailable Al Shweiki, Hemant Referring Unavailable Al Shweiki, Hemant Attending Unavailable Al Shweiki, Hemant Referring Unavailable Corporate, Doctor Attending Unavailable Al Shweiki, Hemant Attending Unavailable Al Shweiki, Hemant Referring Unavailable Al Shweiki, Hemant Attending Unavailable Al Shweiki, Hemant Referring Unavailable MADISON, NICHO Referring Unavailable RUDY ZENDEJAS Attending Unavailable MISTY EDWARDS Referring Unavailable MALINA JHA Referring Unavailable NIRALI ARCHULETA Attending Unavailable ROSADO, BHARGAV Referring Unavailable NASIM, SAMER J Referring Unavailable MARIYA CHIN Referring Unavailable HORANI, NICHO Admitting Unavailable MALINA JHA T Attending Unavailable MISTY EDWARDS Admitting Unavailable MISTY EDWARDS Attending Unavailable CHRISTIAN, NIRAJ Referring Unavailable ROSADO, BHARGAV Referring Unavailable SHABPIRAY, ANTHONY Referring Unavailable MISTY EDWARDS Referring Unavailable SUZANNE CRAWLEY Attending Unavailable CAMPBELL KAY Attending Unavailable MISTY EDWARDS Referring Unavailable ADDISON, MARAH Referring Unavailable RUDY ZENDEJAS Attending Unavailable CAMPBELL KAY Attending Unavailable ROSADO, BHARGVA Referring Unavailable ALONZO, BHARGAV Referring Unavailable RUDY ZENDEJAS Attending Unavailable MISTY EDWARDS Attending Unavailable RUDY ZENDEJAS Referring Unavailable MISTY EDWARDS Attending Unavailable MISTY EDWARDS Referring Unavailable NIRAJ SAN Attending Unavailable ABRAHAM CESAR Attending Unavailable NARINDER MEREDITH Attending Unavailable ABRAHAM CESAR Attending Unavailable NATI VIRK Attending Unavailable ABRAHAM CESAR Attending Unavailable ANTOLIN MCKAY Attending Unavailable NATI VIRK Referring Unavailable ABRAHAM CESAR Attending Unavailable NATI VIRK Attending Unavailable ABRAHAM CESAR Attending Unavailable NARINDER MEREDITH Attending Unavailable ABRAHAM CESAR Attending Unavailable NARINDER MEREDITH Attending Unavailable NATI VIRK Attending Unavailable ABRAHAM CESAR Attending Unavailable ABRAHAM CESAR Attending Unavailable RosyMolly patricio M Admitting Unavailable RosyMolly patrciio M Attending Unavailable Abraham Cesar Primary Care Unavailable Abner Roa Admitting Unavailable Abner Roa Attending Unavailable Abraham Cesar Primary Care Unavailable RosyMolly patricio M Admitting Unavailable Rosy, Molly M Attending Unavailable Abraham Cesar Primary Care Unavailable Keri, Devang S Admitting Unavailable Devang Saavedra S Attending Unavailable Abraham Cesar Primary Care Unavailable Amaury Chin Admitting Unavailable Amaury Chin Attending Unavailable Abraham Cesar Primary Care Unavailable Allergies Allergy Classification Reported Allergen(s) Allergy Type Date of Onset Reaction(s) Facility (1 source) 79506,00; Translations: [94759,00] Propensity to adverse reactions (disorder) 9 [facility] (20 sources) gabapentin; Translations: [gabapentin] Drug Allergy 2 Palpitations, Unknown (qualifier value) [facility] (20 sources) traMADol; Translations: [TRAMADOL] Drug Allergy 2 Other [facility] (2 sources) Penicillin; Translations: [PENICILLIN] Drug Allergy 4 [facility] (6 sources) Penicillins Drug Allergy 4 [facility] (1 source) gabapentin Drug Allergy 5 [facility] Medications Current Medications Medication Drug Class(es) Dates Sig (Normalized) Sig (Original) allopurinol 300 mg oral tablet (20 sources) Xanthine Oxidase Inhibitor Start: 09-13-2024 take 1 tablet by mouth once daily allopurinol (Zyloprim) 300 MG tablet Indications: Gout, unspecified cause, unspecified chronicity, unspecified site Take 1 tablet (300 mg) by mouth Daily 100 tablet 3 09/13/2024 Active Start: 03-05-2022 End: 04-03-2022 take 1 tablet by mouth once daily allopurinol (Zyloprim) 300 MG tablet Indications: Gout, unspecified cause, unspecified chronicity, unspecified site Take 1 tablet (300 mg) by mouth Daily 100 tablet 3 09/13/2024 Active amiodarone hydrochloride 200 mg oral tablet (6 sources) Antiarrhythmic Start: 01-18-2025 End: 05-02-2025 amiodarone (Pacerone) 200 MG tablet Take by mouth 01/18/2025 05/02/2025 Active amoxicillin 500 mg oral tablet (1 source) Penicillin-class Antibacterial Start: 07-07-2024 take 1 tablet by mouth twice daily amoxicillin 500 mg oral tablet 500 mg = 1 tab(s), Oral, BID, Refills(s) 0 Start Date: 07/07/24 Status: Ordered apixaban 5 mg oral tablet (20 sources) Factor Xa Inhibitor Start: 05-17-2024 take 1 tablet by mouth twice daily Aspir-81 (15 sources) Aspir-81 Active aspirin 81 mg delayed release oral tablet (20 sources) Platelet Aggregation Inhibitor, Nonsteroidal Anti-inflammatory Drug Start: 07-07-2024 take 1 tablet by mouth once daily aspirin 81 mg Oral EC Tab 81 mg = 1 tab(s), Oral, Daily, Refills(s) 0 Start Date: 07/07/24 Status: Ordered Start: 03-05-2022 End: 05-17-2024 take 1 tablet by mouth once daily Aspirin 81 mg Tablet,Delayed Release (Dr/Ec) Discontinued 81 MG PO Daily April 03, 2022 12:00am May 17, 2024 11:22am take 1 tablet by annabel th once daily aspirin 81 mg chewable tablet chew 1 tablet by oral route every day 81 MG - Active atorvastatin 80 mg oral tablet (20 sources) HMG-CoA Reductase Inhibitor Start: 08-30-2024 take 1 tablet by mouth once daily at bedtime atorvastatin (Lipitor) 80 MG tablet Indications: Hyperlipidemia, unspecified hyperlipidemia type TAKE 1 TABLET BY MOUTH EVERY DAY AT BEDTIME 100 tablet 3 08/30/2024 Active Start: 07-31-2023 End: 07-30-2024 take 1 tablet by mouth once daily atorvastatin (Lipitor) 80 MG tablet Indications: Hyperlipidemia, unspecified hyperlipidemia type (CMS/HCC) Take 1 tablet (80 mg) by mouth Daily 100 tablet 3 04/12/2024 Active Start: 03-05-2022 End: 05-17-2024 take 1 tablet by mouth once daily in the evening Atorvastatin 40 mg Tablet Discontinued 40 MG PO Every evening April 03, 2022 12:00am May 17, 2024 11:22am take 1 tablet by annabel twice daily atorvastatin 40 mg tablet take 1 tablet by oral route 2 times every day 40 MG - Active baclofen 10 mg oral tablet (20 sources) gamma-Aminobutyric Acid-ergic Agonist Start: 11-25-2024 baclofen (Lioresal) 10 MG tablet Indications: Muscle spasm TAKE 1 TABLET IN THE MORNING AND 1 TABLET BEFORE BEDTIME 180 tablet 3 11/25/2024 Active Start: 03-05-2022 End: 03-15-2024 baclofen (Lioresal) 10 MG ta blet Indications: Muscle spasm TAKE 1 TABLET IN THE MORNING AND 1 TABLET BEFORE BEDTIME 180 tablet 3 11/25/2024 Active take 1 tablet by annabel three times daily baclofen 10 mg tablet take 1 tablet by oral route 3 times every day 10 MG - Active calcium citrate 950 mg oral tablet (16 sources) Start: 07-07-2024 calcium (as ca lcium citrate) 200 mg oral tablet 950 mg = 1 tab(s), Oral, BID, Refills(s) 0 Start Date: 07/07/24 Status: Ordered take 1 tablet by mouth once reinaldo y Calcium Citrate 333 MG 1 tablet Orally Once a day Active Calcium Citrate / Vitamin D (3 sources) take 2 tablets by mouth once in the morning Calcium Citrate-Vitamin D (CITRACAL/VITAMIN D PO) Take 2 tablets by mouth in the morning and 2 tablets before bedtime. 0 Active candesartan cilexetil 32 mg oral tablet (20 sources) Angiotensin 2 Receptor Sierra Start: 11-23-19 23 candesartan (Atacand) 32 MG tablet Indications: Hypertension, unspecified type (CMS/HCC) TAKE 1 TABLET DAILY 90 tablet 3 11/22/2022 Active Start: 03-05-2022 End: 04-03-2022 take 1 tablet by mouth once daily Candesartan 32 mg Tablet Discontinued 32 MG PO Daily March 05, 2022 12:00am April 03, 2022 8:52am carvedilol 6.25 mg oral tablet (20 sources) alpha-Adrenergic Sierra, beta-Adrenergic Sierra Start: 02-05-2024 carvedilol (Core g) 6.25 MG tablet Indications: NSTEMI (non-ST elevated myocardial infarction) (CMS/HCC) TAKE 1 TABLET IN THE MORNING AND IN THE EVENING. TAKE WITH MEALS 200 tablet 3 02/05/2024 Active Start: 10-13-2023 End: 01-16-2024 take 1 tablet by mouth in the morning carvedilol (Coreg) 6.25 MG tablet Indications: NSTEMI (non-ST elevated myocardial infarction) (CMS/HCC) Take 1 tablet (6.25 mg) by mouth in the morning and 1 tablet (6.25 mg) in the evening. Take with meals. 90 tablet 12/25/2023 Active Start: 07-07-2023 End: 10-10-2023 take 1 tablet by mouth in the morning carvedilol (Coreg) 6.25 MG tablet Take 6.25 mg by mouth in the morning and 6.25 mg in the evening. 0 07/07/2023 10/10/2023 Active cephalexin 500 mg oral capsule (13 sources) Cephalosporin Antibacterial Start: 12-23-2024 End: 01-02-2025 take 1 capsule by mouth in the morning cephalexin (Keflex) 500 MG capsule Indications: Cellulitis of finger of right hand Take 1 capsule (500 mg) by mouth in the morning and 1 capsule (500 mg) before bedtime. Do all this for 10 days. 20 capsule 12/23/2024 01/02/2025 Active Start: 09-03-2024 End: 10-11-2024 take 1 capsule by mouth twice daily Cephalexin 500 mg capsule Discontinued 500 MG PO Twice daily September 14, 2024 12:00am October 11, 2024 10:26am ciprofloxacin 250 mg oral tablet (1 source) Quinolone Antimicrobial Start: 05-12-2024 End: 05-15-2024 take 1 tablet by mouth in the morning ciprofloxacin (Cipro) 250 MG tablet Indications: Acute cystitis with hematuria Take 1 tablet (250 mg) by mouth in the morning and 1 tablet (250 mg) before bedtime. Do all this for 3 days. 6 tablet 05/12/2024 05/15/2024 Active clobetasol propionate 0.0005 mg/mg topical ointment (2 sources) Corticosteroid Start: 09-13-2024 clopidogrel 75 mg oral tablet (20 sources) P2Y12 Platelet Inhibitor Start: 10-10-2023 End: 10-04-2024 take 1 tablet by mouth in the morning clopidogrel (Plavix) 75 MG tablet Indications: NSTEMI (non-ST elevated myocardial infarction) ([facility]) Take 1 tablet (75 mg) by mouth in the morning. 90 tablet 10/13/2023 Active Start: 03-05-2022 End: 04-03-2022 take 1 tablet by mouth once daily Clopidogrel (Plavix) 75 mg Tablet Discontinued 75 MG PO Daily March 05, 2022 12:00am April 03, 2022 8:52am On Hold: Resume on 03/25/22. clotrimazole 20 mg/ml vaginal cream (20 sources) Azole Antifungal Start: 12-13-2023 [facility] Clotrimaz ole 3 2 % vaginal cream INSERT 1 APPLICATORFUL VAGINALLY AT BEDTIME FOR 5 NIGHTS 12/13/2023 Active colchicine 0.6 mg oral tablet (4 sources) Start: 07-07-2024 take 1 tablet by mouth once daily colchicine 0.6 mg Tab 0.6 mg = 1 tab(s), Oral, Daily, Refills(s) 0 Start Date: 07/07/24 Status: Ordered Start: 05-17-2024 End: 09-13-2024 take 1 capsule by mouth once daily Colchicine 0.6 mg capsule Discontinued 0.6 MG PO Daily May 17, 2024 1:00am September 13, 2024 3:30pm Continuous Glucose Sensor (Dexcom G7 Sensor) [facility] (14 sources) Start: 12-28-2024 End: 12-28-2025 apply 1 dose transdermal route once Continuous Glucose Sensor (Dexcom G7 Sensor) [facility] Indications: Type 2 diabetes mellitus with diabetic polyneuropathy, with long-term current use of insulin ([facility]) 1 patch every 14 (fourteen) days 6 each 3 12/28/2024 12/28/2025 Active Start: 12-23-2024 End: 12-23-2024 apply 1 dose transdermal route once Continuous Glucose Sensor (Dexcom G7 Sensor) [facility] Indications: Type 2 diabetes mellitus with diabetic polyneuropathy, with long-term current use of insulin ([facility]) Place 1 patch on the skin every 14 (fourteen) days 2 each 11 12/23/2024 12/23/2024 Discontinued Start: 12-23-2024 End: 12-23-2025 apply 1 dose transdermal route once Continuous Glucose Sensor (Dexcom G7 Sensor) [facility] Indications: Type 2 diabetes mellitus with diabetic polyneuropathy, with long-term current use of insulin ([facility]) 1 patch every 14 (fourteen) days 6 each 3 12/23/2024 12/23/2025 Active dapagliflozin 5 mg oral tablet (20 sources) Sodium-Glucose Cotransporter 2 Inhibitor Start: 09-13-2024 take 1 tablet by mouth once daily dapagliflozin (Farxiga) 5 MG Indications: Type 2 diabetes mellitus with diabetic polyneuropathy, with long-term current use of insulin ([facility]) Take 1 tablet (5 mg) by mouth Daily 100 tablet 3 09/13/2024 Active Start: 07-07-2024 take 5 mg by mouth once daily dapagliflozin 10 mg oral tablet 5 mg = 0.5 tab(s), Oral, Daily, Refills(s) 0 Start Date: 07/07/24 Status: Ordered Start: 02-26-2024 take 1 tablet by annabel th once daily in the morning Start: 10-13-2023 End: 01-15-2024 take 1 tablet by mouth once daily dapagliflozin (Farxiga) 10 MG Indications: Type 2 diabetes mellitus with diabetic polyneuropathy, with long-term current use of insulin ([facility]) Take 1 tablet (10 mg) by mouth Daily 90 tablet 12/25/2023 Active Start: 07-08-2023 End: 10-10-2023 take 10 mg by mouth in the morning dapagliflozin (Farxiga) 10 MG Take 10 mg by mouth in the morning. 0 07/08/2023 10/10/2023 Active take 5 mg by mouth once daily da pagliflozin (Farxiga) 5 MG Take 5 mg by mouth Daily Active doxycycline hyclate 100 mg oral capsule (6 sources) Tetracycline-class Drug End: 02-11-2025 doxycycline (Vibramycin) 100 MG capsule Take 100 mg by mouth in the morning and 100 mg before bedtime. Take with at least 8 ounces (large glass) of water, do not lie down for 30 minutes after. 02/11/2025 Discontinued (Other) 0.5 ml dulaglutide 1.5 mg/ml auto-injector (20 sources) GLP-1 Receptor Agonist Start: 09-13-2024 End: 02-11-2025 inject 0.75 mg by subcutaneous injection every week Dulaglutide (Trulicity) 0.75 MG/0.5ML solution auto-injector Indications: Type 2 diabetes mellitus with diabetic polyneuropathy, with long-term current use of insulin (HCC) Inject 0.75 mg under the skin 1 (one) time per week 2 mL 5 09/13/2024 02/11/2025 Discontinued (Other) Start: 07-23-2024 End: 09-03-2024 inject 1.5 mg by subcutaneous injection every week Trulicity 1.5 MG/0.5ML solution auto-injector Indications: Type 2 diabetes mellitus with diabetic polyneuropathy, with long-term current use of insulin (CMS/HCC) INJECT 1.5 MG UNDER THE SKIN ONCE A WEEK 2 mL 12 07/23/2024 09/03/2024 Discontinued Start: 07-07-2024 inject 1.5 mg by sub cutaneous injection every week Trulicity Pen 3 mg/0.5 mL subcutaneous solution 1.5 mg, SubCutaneous, qWeek, Refills(s) 0 Start Date: 07/07/24 Status: Ordered Start: 07-08-2022 inject 1.5 mg by sub cutaneous injection every week TRULICITY 1.5 mg/0.5 mL pen injector Inject 1.5 mg under the skin once a week. 05/15/2023 Active Start: 04-03-2022 End: 09-14-2024 Dulaglutide (Trulicity) Discontinued 1.5 MG SUBCUT Laguerre@0900 1 April 03, 2022 12:00am September 14, 2024 3:07pm Start: 04-03-2022 Dulaglutide (T rulicity) Active 1.5 MG SUBCUT Laguerre@0900 1 April 02, 2022 11:00pm Start: 04-03-2022 Dulaglutide (T rulicity) Active 1.5 MG SUBCUT Laguerre@0900 07 08April 03, 2022 12:00am Start: 03-05-2022 End: 04-03-2022 Dulaglutide (Trulicity) 1.5 mg/0.5 mL Pen Injector Discontinued 1.5 MG SUBCUT every week March 05, 2022 12:00am April 03, 2022 8:52am Dulaglutide (Trulicity) 3 MG/0.5ML solution auto-injector (6 sources) Start: 04-12-2024 inject 3 mg by subcutaneous injection every week Dulaglutide (Trulicity) 3 MG/0.5ML solution auto-injector Indications: Type 2 diabetes mellitus with diabetic polyneuropathy, with long-term current use of insulin (CMS/HCC) Inject 3 mg under the skin 1 (one) time per week 6 mL 3 04/12/2024 Active dulaglutide (Trulicity) 3 MG/0.5ML solution pen-injector (20 sources) Start: 12-25-2023 inject 3 mg by subcutaneous injection every week dulaglutide (Trulicity) 3 MG/0.5ML solution pen-injector Indications: Type 2 diabetes mellitus with diabetic polyneuropathy, with long-term current use of insulin (CMS/HCC) Inject 3 mg under the skin 1 (one) time per week 4 each 11 12/25/2023 Active ezetimibe 10 mg oral tablet (20 sources) Dietary Cholesterol Absorption Inhibitor Start: 10-14-2023 End: 12-24-2024 take 1 tablet by mouth once daily ezetimibe (Zetia) 10 MG tablet Indications: Type 2 diabetes mellitus with diabetic polyneuropathy, with long-term current use of insulin ([facility]) Take 1 tablet (10 mg) by mouth Daily 100 tablet 3 09/13/2024 Active gabapentin 100 mg oral capsule (2 sources) Anti-epileptic Agent Start: 11-08-2021 Gabapentin 100 MG 1 capsule Orally start daily at bedtime and increase by 1 tablet every 5 days until taking three times daily for 30 day(s) Nov, Active 12 hr guaiFENesin 600 mg extended release oral tablet (1 source) Start: 07-07-2024 take 1 tablet by mouth twice daily Mucinex 600 mg Tab-ER 600 mg = 1 tab(s), Oral, BID, Refills(s) 0 Start Date: 07/07/24 Status: Ordered HANDICAP PLACARD 5 YEAR (20 sources) Start: 12-02-2022 HANDICAP PLACARD 5 YEAR Indications: Diastolic congestive heart failure, unspecified HF chronicity (CMS/HCC) , Gout, unspecified cause, unspecified chronicity, unspecified site 5 Units by Other route in the morning. 5 Year Duration for Handicap Placard. 1 Units 4 12/02/2022 Active Insulin Glargine Solostar Pen (concentrated) 300 units/mL subcutaneous solution (1 source) Start: 07-07-2024 inject 30 [IU] by subcutaneous injection at bedtime Insulin Glargine Solostar Pen (concentrated) 300 units/mL subcutaneous solution 30 unit(s), SubCutaneous, Bedtime, Refills(s) 0 Start Date: 07/07/24 Status: Ordered 3 ml insulin lispro 100 unt/ml pen injector (20 sources) Insulin Analog Start: 09-03-2024 End: 03-02-2025 insulin lispro (HumaLOG) 100 UNIT/ML injection Indications: Type 2 diabetes mellitus with other specified complication, with long-term current use of insulin ([facility]) Inject 1-4 times per day as directed. 09/03/2024 03/02/2025 Discontinued Start: 07-07-2024 Insulin Lispro KwikPen 100 units/mL injectable solution See Instructions, Refills(s) 0 Start Date: 07/07/24 Status: Ordered Start: 05-17-2024 Start: 07-09-2023 Insulin Lispro (HumaLOG) 100 UNIT/ML solution Indications: Type 2 diabetes mellitus with other specified complication, with long-term current use of insulin ([facility]) Inject 25 Units under the skin in [...] meals. 07/09/2023 Active Start: 03-05-2022 End: 04-03-2022 Insulin Lispro (Humalog U-10 0 Insulin) 100 unit/mL Solution Discontinued 25 UNIT SUBCUT Daily as needed for to lower blood sugar 100 points March 05, 2022 12:00am April 03, 2022 8:52am Start: 03-05-2022 End: 04-03-2022 inject 25 [IU] [...] Subcutaneous Once a day in AM Active Insulin Lispro 100 unit/mL insulin pen (2 sources) Start: 05-17-2024 Insulin Lispro 100 unit/mL insulin pen Active 1 sliding scale dose SUBCUT Use as Directed May 17, 2024 1:00am Start: 05-17-2024 Insulin Lispro 100 unit/mL insulin pen Active 1 sliding scale dose SUBCUT Use as Directed May 17, 2024 12:00am Klayesta [id number] UNIT/GM powder (20 sources) Start: 12-13-2023 Klayesta [id number] UNIT/GM powder Apply 1 application topically in the morning and 1 application before bedtime. 12/13/2023 Active levoFLOXacin 750 mg oral tablet (1 source) Quinolone Antimicrobial Start: 12-02-2024 take 1 tablet by mouth once daily lidocaine 0.05 mg/mg medicated patch (20 sources) Antiarrhythmic, Amide Local Anesthetic Start: 05-17-2024 End: 12-23-2024 apply 1 dose transdermal route once daily as needed for pain lidocaine (Lidoderm) 5 % patch PLACE 1 PATCH ON MOST PAINFUL AREA ON SKIN ONCE DAILY NEEDED FOR PAIN *ON FOR 12HRS/OFF FOR 12HRS 06/13/2024 12/23/2024 Discontinued linezolid 600 mg oral tablet (3 sources) Oxazolidinone Antibacterial Start: 09-29-2024 End: 10-21-2024 take 1 tablet by mouth twice daily meloxicam 15 mg oral tablet (20 sources) Nonsteroidal Anti-inflammatory Drug Start: 09-13-2024 take 1 tablet by mouth once daily meloxicam (Mobic) 15 MG tablet Indications: Chronic bilateral low back pain, unspecified whether sciatica present Take 1 tablet (15 mg) by mouth Daily 100 tablet 3 09/13/2024 Active Start: 04-12-2024 take 1 tablet by annabel th once daily at mealtime meloxicam (Mobic) 15 [...] 05/09/2023 Active Start: 03-05-2022 End: 04-03-2022 take 1 tablet by mouth once daily Meloxicam 15 mg Tablet Discontinued 15 MG PO Daily March 05, 2022 12:00am April 03, 2022 8:52am take 1 tablet by annabel th twice daily meloxicam 7.5 mg tablet take 1 tablet by oral route 2 times every day 7.5 MG - Active 24 hr metoprolol succinate 25 mg extended release oral tablet (20 sources) beta-Adrenergic Sierra Start: 09-13-2024 take 1 tablet by mouth once daily metoprolol succinate XL (Toprol-XL) 25 MG 24 hr tablet Indications: Hypertension, unspecified type Take 1 tablet (25 mg) by mouth Daily 100 tablet 3 09/13/2024 Active Start: 07-09-2024 metoprolol suc cinate 25 mg ER Tab 12.5 mg = 0.5 tab(s), Oral, Daily, # 15 tab(s), Refills(s) 0, called to pharmacy (Rx) Start Date: 07/09/24 Status: Ordered Start: 07-08-2024 End: 07-09-2024 Metoprolol tartrate 25 mg Ta b 12.5 mg = 0.5 tab(s), Tab, Oral, Start date 07/09/24 9:00:00 AM EST, 07/08/24 8:51:00 EST Start Date: 07/09/24 Stop Date: 07/09/24 Status: Completed Start: 05-17-2024 take 1 tablet by annabel th once daily take 1 tablet by annabel th once daily metoprolol succinate XL (Toprol-XL) 25 MG 24 hr tablet Take 12.5 mg by mouth Daily Do not crush or chew. Active miconazole nitrate 20 mg/ml vaginal cream (4 sources) Azole Antifungal Start: 07-07-2023 MICONAZOLE-7 2 % vaginal cream Insert 1 applicator into the vagina nightly. 07/07/2023 Active mupirocin 0.02 mg/mg topical ointment (2 sources) RNA Synthetase Inhibitor Antibacterial Start: 12-31-2024 End: 01-10-2025 mupirocin (Bactroban) 2 % ointment Indications: Cellulitis of finger of right hand Apply topically in the morning and in the evening and before bedtime. Do all this for 10 days. 22 g 12/31/2024 01/10/2025 Active nitroglycerin 0.3 mg sublingual tablet (20 sources) Nitrate Vasodilator Start: 05-17-2024 Nitroglycerin 0. 3 MG as directed Sublingual prn Active NovoFine (15 sources) NovoFine Active nystatin 100 unt/mg topical powder (20 sources) Polyene Antifungal Start: 09-14-2024 Start: 08-06-2024 End: 08-06-2025 nystatin (Klayesta) [id number] NIT/GM powder Indications: Intertrigo Apply topically 2 (two) times a day 60 g 1 08/06/2024 08/06/2025 Active omeprazole 20 mg delayed release oral capsule (20 sources) Proton Pump Inhibitor Start: 05-17-2024 take 2 capsules by mouth once daily Start: 04-12-2024 take 1 capsule by mo uth before mealtime omeprazole (PriLOSEC) [address] [...] 90 capsule 3 04/28/2023 Active Start: 04-03-2022 End: 05-17-2024 take 1 capsule by mouth once daily Omeprazole 20 mg Capsule,Delayed Release(Dr/Ec) Discontinued 20 MG PO Daily April 03, 2022 12:00am May 17, 2024 11:23am Start: 03-05-2022 End: 04-03-2022 take 1 tablet by mouth once daily Omeprazole 20 mg Tablet,Delayed Release (Dr/Ec) Discontinued 20 MG PO Daily March 05, 2022 12:00am April 03, 2022 8:52am oxyCODONE hydrochloride 5 mg oral tablet (20 sources) Opioid Agonist Start: 07-09-2024 take 1 tablet by mouth every six hours as needed for pain oxyCODONE 5 mg Tab 5 mg = 1 tab(s), Oral, q6hr, PRN as needed for pain, # 12 tab(s), Refills(s) 0 Start Date: 07/09/24 Status: Ordered Start: 03-21-2022 End: 04-03-2022 take 1 tablet by mouth every six hours as needed for pain Oxycodone 5 mg Tablet Discontinued 5 MG PO Every 6 hours as needed for Pain Scale 1 - 5 0 March 21, 2022 April 03, 2022 8:52am Start: 03-21-2022 End: 04-03-2022 take 2 tablets by mouth every six hours as needed for pain Oxycodone 5 mg Tablet Discontinued 10 MG PO Every 6 hours as needed for Pain Scale 6 - 10 0 March 21, 2022 April 03, 2022 8:52am Start: 03-21-2022 End: 04-03-2022 take 10 mg by mouth every six hours Oxycodone Discontinued 10 MG PO Every 6 hours 0 March 21, 2022 April 03, 2022 8:52am pregabalin 25 mg oral capsul e (20 sources) Start: 08-03-2024 take 1 capsule by [facility] twice daily Start: 04-09-2024 End: 02-11-2025 take 1 capsule by mouth twice daily pregabalin 25 mg Cap 25 mg = 1 cap(s), Oral, BID, Refills(s) 0 Start Date: 07/07/24 Status: Ordered Probiotic - (2 sources) Probiotic - as directed Orally Active sacubitril 24 mg / valsartan 26 mg oral tablet (20 sources) Angiotensin 2 Receptor Sierra Start: 08-30-2024 take 24-26 mg by mouth twice daily sacubitril-valsarta n (Entresto) 24-26 MG tablet Indications: Chronic systolic congestive heart failure (HCC) 1/2 tablet by mouth twice a day 90 tablet 3 08/30/2024 Active Start: 05-17-2024 take 1 tablet by annabel th twice daily Start: 07-31-2023 End: 03-01-2024 take 1 tablet by mouth in the morning sacubitril-valsartan (Entresto) 49-51 MG tablet Indications: Acute on chronic diastolic heart failure (CMS/HCC) Take 1 tablet by mouth in the morning and 1 tablet before bedtime. 200 tablet 3 03/01/2024 Active take 1 tablet by annabel th twice daily Entresto 49 mg-51 mg tablet take 1 tablet by oral route 2 times every day 1.00 tablet - Active spironolactone 25 mg oral tablet (20 sources) Aldosterone Antagonist Start: 07-07-2024 spironolactone 25 mg Tab 12.5 mg = 0.5 tab(s), Oral, Daily, Refills(s) 0 Start Date: 07/07/24 Status: Ordered Start: 10-10-2023 End: 10-04-2024 take 1 tablet by mouth once daily spironolactone (Aldactone) 25 MG tablet Indications: Hypertension, unspecified type Take 1 tablet (25 mg) by mouth Daily 100 tablet 3 04/12/2024 Active take 0.5 tablet by m outh once daily spironolactone 25 mg tablet take 0.5 tablet by oral route every day 12.5 MG - Active SteriLance PA (15 sources) SterJackelyn BABB Ac tive ticagrelor 90 mg oral tablet (20 sources) Start: 05-17-2024 take 1 tablet by mouth twice daily tiZANidine 4 mg oral tablet (18 sources) Central alpha-2 Adrenergic Agonist Start: 03-15-2024 End: 03-29-2024 take 1 tablet by mouth every six hours for muscle spasms tiZANidine (Zanaflex) 4 MG tablet Indications: Right lumbar radiculopathy Take 1 tablet (4 mg) by mouth every 6 (six) hours if needed for muscle spasms 30 tablet 1 03/29/2024 Active torsemide 20 mg oral tablet (20 sources) Loop Diuretic Start: 12-23-2024 End: 12-23-2025 take 1.5 tablets by mouth once daily torsemide (Demadex) 20 MG tablet Indications: Chronic systolic congestive heart failure (HCC) , Peripheral venous insufficiency Take 1.5 tablets (30 mg) by mouth Daily 45 tablet 11 12/23/2024 12/23/2025 Active Start: 07-30-2024 End: 09-03-2024 take 1 tablet by mouth once daily torsemide (Demadex) 10 MG tablet Take 10 mg by mouth Daily 07/30/2024 09/03/2024 Discontinued (Reorder) Start: 07-07-2024 take 10 mg by mouth once daily torsemide 20 mg Tab 10 mg = 0.5 tab(s), Oral, Daily, Refills(s) 0 Start Date: 07/07/24 Status: Ordered Start: 07-09-2023 End: 09-03-2025 take 1 tablet by mouth once daily torsemide (Demadex) 20 MG tablet Indications: Chronic systolic congestive heart failure (HCC) , Peripheral venous insufficiency Take 1 tablet (20 mg) by mouth Daily 30 tablet 11 09/03/2024 12/23/2024 Discontinued (Dose adjustment) Start: 07-09-2023 take 1 tablet by annabel th twice daily torsemide (DEMADEX) 20 mg tablet Take 1 tablet (20 mg total) by mouth 2 (two) times a day. 07/09/2023 Active take 2 tablets by mo uth once daily torsemide 20 mg tablet take 2 tablet by oral route every day 40 MG - Active Torsemide 20 MG as directed Orally Active CAROLYNN MCGEE (15 sources) CAROLYNN MCGEE Active Completed/Discontinued Medications Medication Drug Class(es) Dates Sig (Normalized) Sig (Original) acetaminophen 325 mg oral tablet (20 sources) Start: 03-21-2022 End: 05-17-2024 take 2 tablets by mouth every four hours as needed for pain Acetaminophen 325 mg Tablet Discontinued 650 MG PO Q4H as needed for Mild Pain 100 April 03, 2022 12:00am May 17, 2024 11:23am Start: 03-21-2022 End: 04-03-2022 take 650 mg by mouth every four hours Acetaminophen Active 650 MG PO Q4H 100 April 03, 2022 12:00am acetaminophen 325 mg / HYDROcodone bitartrate 5 mg oral tablet (3 sources) Opioid Agonist Start: 05-19-2024 End: 09-14-2024 take 1 tablet by mouth twice daily as needed for pain Hydrocodone-Acetaminophen 5-325 mg tablet Discontinued 1 TAB PO Twice daily as needed for pain 14 May 19, 2024 September 14, 2024 3:07pm aluminum hydroxide 40 mg/ml / magnesium hydroxide 40 mg/ml / simethicone 4 mg/ml oral suspension (11 sources) Start: 03-21-2022 End: 04-03-2022 take 1 mL by mouth every four hours as needed for gastroesophageal reflux disease Alum-Mag Hydroxide-Simeth (Mag-Al Plus) 200-200-20 mg/5 mL Suspension Discontinued 30 ML PO Q4H as needed for Heartburn 0 March 21, 2022 12:00am April 03, 2022 8:52am bumetanide 1 mg oral tablet (20 sources) Loop Diuretic Start: 03-05-2022 End: 05-17-2024 take 1 tablet by mouth once daily Bumetanide 1 mg Tablet Discontinued 1 MG PO Daily April 03, 2022 12:00am May 17, 2024 11:22am calcium carbonate 1250 mg oral tablet (20 sources) Start: 04-03-2022 End: 05-17-2024 Calcium Carbonate (Oyster Shell Calcium 500) 500 mg calcium (1,250 mg) Tablet Discontinued 1000 MG PO Daily April 03, 2022 12:00am May 17, 2024 11:22am Start: 03-05-2022 End: 04-03-2022 Calcium Carbonate (Calcium 6 00) 600 mg calcium (1,500 mg) Tablet Discontinued 1200 MG PO Daily March 05, 2022 12:00am April 03, 2022 8:52am cyclobenzaprine hydrochloride 10 mg oral tablet (20 sources) Muscle Relaxant Start: 03-21-2022 End: 05-17-2024 take 1 tablet by mouth every eight hours as needed for muscle spasms Cyclobenzaprine 10 mg Tablet Discontinued 10 MG PO Every 8 hours as needed for Muscle Spasm April 03, 2022 12:00am May 17, 2024 11:22am diazePAM 10 mg oral tablet (9 sources) Benzodiazepine Start: 12-07-2021 Valium 10 MG 1 tablet 30 minutes prior to procedure only take 2nd tablet if needed Orally Once a day for 1 days Dec, Not-Taking diphenhydrAMINE hydrochloride 25 mg oral capsule (11 sources) Histamine-1 Receptor Antagonist Start: 03-21-2022 End: 04-03-2022 take 1 capsule by mouth every six hours as needed Diphenhydramine Hcl 25 mg Capsule Discontinued 25 MG PO Q6H as needed for Itching 0 March 21, 2022 12:00am April 03, 2022 8:52am docusate sodium 100 mg oral capsule (20 sources) Start: 04-03-2022 take 200 mg by mouth once daily Docusate Sodium Active 200 MG PO Daily 60 April 03, 2022 12:00am Start: 03-05-2022 End: 05-17-2024 take 2 capsules by mouth once daily Docusate Sodium 100 mg Capsule Discontinued 200 MG PO Daily 60 April 03, 2022 12:00am May 17, 2024 11:22am take 1 capsule by mo uth every twenty-four hours Stool Softener 100 MG 1 capsule as needed Orally Once a day Active docusate sodium 50 mg / sennosides, custodial 8.6 mg oral tablet (20 sources) Start: 03-21-2022 End: 05-17-2024 take 2 tablets by mouth twice daily Sennosides-Docusate Sodium (Stool Softener-Stimulant Laxat) 8.6-50 mg Tablet Discontinued 2 TAB PO Twice daily 60 April 03, 2022 12:00am May 17, 2024 11:21am hydrALAZINE hydrochloride 50 mg oral tablet (20 sources) Arteriolar Vasodilator Start: 05-17-2024 End: 09-14-2024 Hydralazine 50 mg tablet Discontinued 25 MG PO Twice daily May 17, 2024 11:16am September 14, 2024 3:07pm Start: 04-12-2024 take 1 tablet by annabel th in [...] times a day. 11/22/2022 Active Start: 04-03-2022 End: 05-17-2024 take 2 tablets by mouth three times daily Hydralazine 50 mg Tablet Discontinued 100 MG PO Three times daily 180 April 03, 2022 12:00am May 17, 2024 11:23am Start: 04-03-2022 take 100 mg by mouth three times daily Hydralazine Active 100 MG PO Three times daily 180 April 03, 2022 12:00am Start: 03-05-2022 End: 04-03-2022 take 1 tablet by mouth three times daily Hydralazine 100 mg Tablet Discontinued 100 MG PO Three times daily [...] Insulin) 100 unit/mL (3 mL) Insulin Pen (19 sources) Start: 04-03-2022 End: 05-17-2024 inject 1 dose by subcutaneous injection once at mealtime Insulin Aspart U-100 (Novolog Flexpen U-100 Insulin) 100 unit/mL (3 mL) Insulin Pen Discontinued 1 sliding scale dose SUBCUT 3X/Day with meals and bedtime April 03, 2022 12:00am May 17, 2024 11:22am Start: 04-03-2022 End: 05-17-2024 inject 1 dose by subcutaneous injection once at mealtime Insulin Aspart U-100 (Novolog Flexpen U-100 Insulin) 100 unit/mL (3 mL) Insulin Pen Discontinued 1 sliding scale dose SUBCUT 3X/Day with meals and bedtime April 02, 2022 11:00pm May 17, 2024 10:22am Start: 04-03-2022 inject 1 dose by sub [...] March 21, 2022 12:00am 3 ml insulin aspart, human 100 unt/ml pen injector (2 sources) Insulin Analog Start: 03-21-2022 End: 05-17-2024 inject 1 dose by subcutaneous injection once at mealtime Insulin Aspart U-100 (Novolog Flexpen U-100 Insulin) 100 unit/mL (3 mL) Insulin Pen Discontinued 1 sliding scale dose SUBCUT 3X/Day with meals and bedtime April 03, 2022 12:00am May 17, 2024 11:22am 3 ml insulin glargine 100 unt/ml pen injector (20 sources) Insulin Analog Start: 09-13-2024 End: 09-13-2024 inject 10 [IU] by subcutaneous injection in the morning insulin glargine (Lantus SoloStar) 100 UNIT/ML pen Indications: Type 2 diabetes mellitus with diabetic polyneuropathy, with long-term current use of insulin (CMS/HCC) Inject 10 Units under the skin in the morning. 3 mL 11 09/13/2024 09/13/2024 Discontinued Start: 09-13-2024 inject 10 [IU] by laguerre bcutaneous injection twice daily Start: 08-13-2024 inject 10 [IU] by laguerre bcutaneous injection in the morning insulin glargine (Lantus SoloStar) 100 UNIT/ML pen Indications: Type 2 diabetes mellitus with diabetic polyneuropathy, with long-term current use of insulin (CMS/HCC) Inject 10 Units under the skin in the morning. 3 mL 11 08/13/2024 Active Start: 04-12-2024 insulin glargi ne (Toujeo Max [...] in the morning. 06/15/2023 Active Start: 04-03-2022 End: 09-13-2024 Insulin Glargine (Lantus Roxy ostar U-100 Insulin) 100 unit/mL (3 mL) Insulin Pen Discontinued 40 UNIT SUBCUT Twice daily April 03, 2022 12:00am September 13, 2024 3:30pm Start: 03-05-2022 End: 04-03-2022 Insulin Glargine U-300 Conc (Toujeo Max U-300 Solostar) 300 unit/mL (3 mL) Insulin Pen Discontinued 100 UNIT SUBCUT Daily March 05, 2022 12:00am April 03, 2022 8:52am Start: 11-19-2021 Toujeo Max Roxy oStar 300 UNIT/ML injection Indications: Type 2 Diabetes Mellitus Inject 100 Units under the skin in the morning. 11/19/2021 Active inject 20 [IU] by laguerre bcutaneous injection at bedtime insulin glargine (Toujeo Max SoloStar) 300 UNIT/ML injection Inject 20 Units under the skin at bedtime Active Toujeo SoloStar U-300 Insulin 300 unit/mL (1.5 mL) subcutaneous pen inject by subcutaneous route as per insulin protocol 0.00 - Active irbesartan 300 mg oral tablet (10 sources) Angiotensin 2 Receptor Sierra Start: 04-03-2022 End: 05-17-2024 take 1 tablet by mouth once daily Irbesartan 300 mg Tablet Discontinued 300 MG PO Daily 30 April 03, 2022 12:00am May 17, 2024 11:22am labetalol hydrochloride 200 mg oral tablet (20 sources) beta-Adrenergic Sierra Start: 04-03-2022 End: 05-17-2024 take 1 tablet by mouth twice daily Labetalol 200 mg Tablet Discontinued 200 MG PO Twice daily April 03, 2022 12:00am May 17, 2024 11:21am Start: 03-05-2022 End: 04-03-2022 take 1 tablet by mouth twice daily Labetalol 300 mg Tablet Discontinued 300 MG PO Twice daily March 05, 2022 12:00am April 03, 2022 8:52am magnesium hydroxide 80 mg/ml oral suspension (11 sources) Start: 03-21-2022 End: 04-03-2022 take 1 mL by mouth at bedtime as needed for constipation Magnesium Hydroxide (Milk Of Magnesia) 400 mg/5 mL Suspension Discontinued 30 ML PO Bedtime as needed for Constipation 0 March 21, 2022 12:00am April 03, 2022 8:52am Start: 03-21-2022 End: 04-03-2022 take 1 mL by mouth at bedtime as needed for constipation Magnesium Hydroxide (Milk Of Magnesia) 400 mg/5 mL Suspension Discontinued 30 ML PO Bedtime as needed for Constipation 0 March 21, 2022 12:00am April 03, 2022 8:52am Start: 03-21-2022 End: 04-03-2022 take 1 mL by mouth at bedtime as needed for constipation Magnesium Hydroxide (Milk Of Magnesia) 400 mg/5 mL Suspension Discontinued 30 ML PO Bedtime as needed for Constipation 0 March 20, 2022 11:00pm April 03, [...] PO Bedtime 0 March 21, 2022 12:00am metOLazone 2.5 mg oral tablet (20 sources) Thiazide-like Diuretic Start: 03-05-2022 End: 05-17-2024 Metolazone 2.5 mg Tablet Discontinued 2.5 MG PO [id number] 13 April 03, 2022 12:00am May 17, 2024 11:21am naproxen 500 mg oral tablet (10 sources) Nonsteroidal Anti-inflammatory Drug Start: 04-03-2022 End: 05-17-2024 take 1 tablet by mouth twice daily Naproxen 500 mg Tablet Discontinued 500 MG PO Twice daily 60 April 03, 2022 12:00am May 17, 2024 11:21am NIFEdipine 30 mg osmotic 24 hr extended release oral tablet (20 sources) Dihydropyridine Calcium Channel Sierra Start: 04-03-2022 End: 05-17-2024 take 1 tablet by mouth once daily at bedtime Nifedipine 30 mg Tablet Extended Release 24hr Discontinued 30 MG PO Daily at bedtime 30 April 03, 2022 12:00am May 17, 2024 11:21am Start: 03-05-2022 End: 04-03-2022 take 1 tablet by mouth once daily at bedtime Nifedipine 30 mg Tablet Extended Release Discontinued 30 MG PO Daily at bedtime March 05, 2022 12:00am April 03, 2022 8:52am Potassium Chloride (20 sources) Start: 07-07-2024 take 1 tablet by mouth once daily Potassium Chloride (Lqn-Mrpr-Kiz M20) 20 mEq oral tablet, extended release 20 mEq = 1 tab(s), Oral, Daily, Refills(s) 0 Start Date: 07/07/24 Status: Ordered Start: 04-03-2022 Start: 03-05-2022 End: 04-03-2022 take 1 tablet by mouth once daily Potassium Chloride 20 mEq Tablet Extended Release Discontinued 20 MEQ PO Daily March 05, 2022 12:00am April 03, 2022 8:52am Start: 03-05-2022 take 20 mEq by mouth twice daily Potassium Chloride Active 20 MEQ PO Twice daily March 05, 2022 12:00am Potassium Chlori de 20 MEQ as directed Orally Once a day Active predniSONE 10 mg oral tablet (11 sources) Start: 03-21-2022 End: 04-03-2022 take 4 tablets by mouth once daily Prednisone 10 mg Tablet Discontinued 40 MG PO Daily Taper: Start: March 21, 2022 9:00am End: March 24, 2022 8:59am Frequency: DAILY Days: 3 Hours: 0 Dose: 40 Start: March 24, 2022 9:00am End: March 27, 2022 8:59am Frequency: DAILY Days: 3 Hours: 0 Dose: 20 Start: March 27, 2022 9:00am End: March 30, 2022 8:59am Frequency: DAILY Days: 3 Hours: 0 Dose: 10 0 March 21, 2022 12:00am April 03, 2022 8:52am Please contact the information source for Taper Schedule details. Start: 03-21-2022 End: 04-03-2022 take 40 mg by mouth once daily Prednisone Discontinued 40 MG PO Daily 0 March 21, 2022 12:00am April 03, 2022 8:52am rosuvastatin calcium 20 mg oral tablet (3 sources) HMG-CoA Reductase Inhibitor Start: 05-17-2024 End: 09-14-2024 take 1 tablet by mouth once daily Rosuvastatin 20 mg tablet Discontinued 20 MG PO Daily May 17, 2024 1:00am September 14, 2024 3:08pm traMADol hydrochloride 50 mg oral tablet (9 sources) Opioid Agonist Start: 12-07-2021 take 1 tablet by mouth every twenty-four hours traMADol HCl 50 MG 1 tablet as needed Orally Once a day for 30 days G89.29 Chronic pain Dec, Not-Taking Problems Active Problems Problem Classification Problem Date Documented Date Episodic/Chronic Acute myocardial infarction (20 sources) Myocardial infarction; Translations: [Acute myocardial infarction, unspecified] Onset: 07-02-2023 03-23-2022 Chronic Comment on above: Problem List clean-u p per request of Phys. EHR Cmte Administrative/social admission (16 sources) Other reduced mobility; Translations: [Impaired mobility and endurance] 03-23-2022 Episodic Comment on above: Problem List clean-u p per request of Phys. EHR Cmte Cardiac dysrhythmias (8 sources) Paroxysmal atrial fibrillation; Translations: [Unspecified atrial fibrillation] Onset: 04-19-2024 Chronic Cataract (3 sources) Bilateral senile combined form cataracts of eyes; Translations: [Bilateral senile combined form cataracts of eyes] Onset: 11-30-2024 Chronic Chronic kidney disease (20 sources) Chronic kidney disease; Translations: [Chronic kidney disease stage 3A ] Onset: 06-09-2024 07-07-2024 Chronic Chronic ulcer of skin (8 sources) Non-pressure chronic ulcer of left heel and midfoot with unspecified severity; Translations: [Ulcer of left heel] 09-13-2024 Chronic Conduction disorders (6 sources) Presence of automatic (implantable) cardiac defibrillator; Translations: [Encounter for checking and testing of cardiac pacemaker pulse generator [battery]] Onset: 12-20-2024 Chronic Congestive heart failure; nonhypertensive (20 sources) Unspecified diastolic (congestive) heart failure; Translations: [Acute on chronic diastolic heart failure] Onset: 05-17-2022 Resolved: 12-31-2024 Chronic Coronary atherosclerosis and other heart disease (20 sources) Coronary arteriosclerosis; Translations: [Atherosclerotic heart disease of [place] coronary artery without angina pectoris] Onset: 09-24-2023 03-23-2022 Chronic Comment on above: Problem List clean-u p per request of Phys. EHR Cmte Diabetes mellitus with complications (20 sources) Skin ulcer due to type 2 diabetes mellitus; Translations: [Type 2 diabetes mellitus with other skin ulcer] Onset: 11-25-2019 Resolved: 12-19-2023 10-28-2022 Chronic Diabetes mellitus without complication (20 sources) Type 2 diabetes mellitus; Translations: [Type 2 diabetes mellitus without complications] Onset: 05-16-2022 03-23-2022 Chronic Comment on above: Problem List clean-u p per request of Phys. EHR Cmte Disorders of lipid metabolism (20 sources) Hyperlipidemia; Translations: [Hyperlipidemia, unspecified] Onset: 09-20-2020 03-23-2022 Chronic Comment on above: Problem List clean-u p per request of Phys. EHR Cmte Esophageal disorders (20 sources) Gastroesophageal reflux disease; Translations: [Gastro-esophageal reflux disease without esophagitis] Onset: 10-15-2022 03-23-2022 Chronic Comment on above: Problem List clean-u p per request of Phys. EHR Cmte Essential hypertension (20 sources) Hypertensive disorder; Translations: [Essential (primary) hypertension] Onset: 05-16-2022 03-23-2022 Chronic Comment on above: Problem List clean-u p per request of Phys. EHR Cmte Genitourinary symptoms and ill-defined conditions (1 source) Scalding pain on urination ; Translations: [Dysuria] 05-12-2024 Episodic Gout and other crystal arthropathies (20 sources) Gout; Translations: [Gout, unspecified] Onset: 10-15-2022 03-23-2022 Chronic Comment on above: Problem List clean-u p per request of Phys. EHR [facility] Heart valve disorders (20 sources) Nonrheumatic mitral (valve) insufficiency; Translations: [Mitral valve disorders] Onset: 07-09-2024 07-09-2024 Chronic Hypertension with complications and secondary hypertension (2 sources) Hypertensive heart disease with heart failure; Translations: [Hypertensive heart disease with heart failure] Onset: 12-20-2024 Chronic Immunity disorders (2 sources) Secondary immune deficiency disorder; Translations: [Immunodeficiency due to conditions classified elsewhere ([facility])] 07-21-2023 Chronic Menopausal disorders (2 sources) Decreased estrogen level; Translations: [Other primary ovarian failure] 10-13-2024 Chronic Mycoses (8 sources) Pain in toe; Translations: [Tinea unguium] 04-09-2024 Episodic Osteoarthritis (20 sources) Localized, primary osteoarthritis of the pelvic region and thigh; Translations: [Unilateral primary osteoarthritis, left hip] Onset: 10-17-2016 Resolved: 10-15-2021 Chronic Osteoporosis (20 sources) Senile osteoporosis; Translations: [Age-related osteoporosis without current pathological fracture] Onset: 03-08-2020 01-13-2023 Chronic Other acquired deformities (14 sources) Lumbar spondylolisthesis; Translations: [Spondylolisthesis, lumbar region] 10-23-2023 Episodic Other acquired deformities (7 sources) Spondylolisthesis, lumbar region; Translations: [Acquired spondylolisthesis] Onset: 12-06-2021 Resolved: 01-15-2022 Episodic Other and ill-defined cerebrovascular disease (1 source) Other cerebrovascular disease; Translations: [OTHER CEREBROVASCULAR DISEASE] Onset: 05-20-2022 Chronic Other and ill-defined heart disease (20 sources) Diastolic dysfunction; Translations: [Other ill-defined heart diseases] Onset: 01-13-2023 01-13-2023 Chronic Other circulatory disease (2 sources) Peripheral vascular angioplasty status with implants and grafts; Translations: [Peripheral vascular angioplasty status with implants and grafts] Onset: 03-05-2024 Chronic Other connective tissue disease (5 sources) History of lumbar fusion; Translations: [Arthrodesis status] 10-23-2023 Episodic Other connective tissue disease (2 sources) Arthrodesis status; Translations: [Arthrodesis status] 10-23-2023 Episodic Other connective tissue disease (2 sources) Spasm; Translations: [Other muscle spasm] 03-15-2024 Episodic Other connective tissue disease (3 sources) Neuropathic pain; Translations: [Neuralgia and neuritis, unspecified] 08-03-2024 Episodic Other connective tissue disease (1 source) Neuralgia and neuritis, unspecified; Translations: [Neuralgia, neuritis, and radiculitis, unspecified] 10-11-2024 Episodic Other connective tissue disease (2 sources) Trochanteric bursitis of right hip; Translations: [Trochanteric bursitis, right hip] 10-21-2024 Episodic Other diseases of kidney and ureters (20 sources) Renal mass; Translations: [Other specified disorders of kidney and ureter] Onset: 05-28-2017 01-13-2023 Chronic Other diseases of veins and lymphatics (3 sources) Disorder of vein of lower extremity; Translations: [Venous insufficiency (chronic) (peripheral)] 09-13-2024 Episodic Other diseases of veins and lymphatics (2 sources) Venous insufficiency (chronic) (peripheral); Translations: [Venous (peripheral) insufficiency, unspecified] 10-11-2024 Episodic Other injuries and conditions due to external causes (3 sources) Local infection of wound; Translations: [Other injury of unspecified body region, initial encounter] 09-27-2024 Episodic Other injuries and conditions due to external causes (1 source) Other injury of unspecified body region, initial encounter; Translations: [Posttraumatic wound infection not elsewhere classified] 10-11-2024 Episodic Other nervous system disorders (20 sources) Chronic pain; Translations: [Other chronic pain] Onset: 06-14-2024 05-17-2024 Chronic Other nervous system disorders (7 sources) Other chronic pain; Translations: [Other chronic pain] Onset: 09-25-2021 Resolved: 12-07-2021 Chronic Other nervous system disorders (9 sources) Cervical myelopathy; Translations: [Disease of spinal cord, unspecified] Chronic Other nervous system disorders (1 source) Disease of spinal cord, unspecified Onset: 12-06-2021 Resolved: 12-06-2021 Chronic Other nervous system disorders (20 sources) Difficulty walking; Translations: [Difficulty in walking, not elsewhere classified] Onset: 04-24-2021 01-13-2023 Chronic Other nervous system disorders (1 source) Carpal tunnel syndrome, bilateral upper limbs; Translations: [Carpal tunnel syndrome, bilateral upper limbs] Onset: 12-15-2023 Chronic Other nervous system disorders (2 sources) Bilateral carpal tunnel syndrome; Translations: [Carpal tunnel syndrome, bilateral upper limbs] 12-15-2023 Chronic Other nervous system disorders (20 sources) Carpal tunnel syndrome of left wrist; Translations: [Carpal tunnel syndrome, left upper limb] Onset: 06-14-2024 08-13-2024 Chronic Other nervous system disorders (20 sources) Cognitive deficit in communication skills; Translations: [Cognitive communication deficit] Onset: 07-08-2024 08-13-2024 Chronic Other nervous system disorders (14 sources) Ataxia; Translations: [Ataxia, unspecified] Onset: 12-23-2024 12-23-2024 Episodic Other nutritional; endocrine; and metabolic disorders (12 sources) Body mass index 40+ - severely obese; Translations: [Morbid (severe) obesity due to excess calories] 03-23-2022 Chronic Comment on above: Problem List clean-u p per request of Phys. EHR Cmte Other nutritional; endocrine; and metabolic disorders (2 sources) Morbid (severe) obesity due to excess calories; Translations: [Morbid obesity] 04-03-2022 Chronic Other nutritional; endocrine; and metabolic disorders (2 sources) Obesity caused by energy imbalance; Translations: [Morbid (severe) obesity due to excess calories] 07-21-2023 Chronic Other nutritional; endocrine; and metabolic disorders (20 sources) Morbid obesity; Translations: [Morbid (severe) obesity due to excess calories] Onset: 10-08-2013 01-13-2023 Chronic Other nutritional; endocrine; and metabolic disorders (2 sources) Obesity; Translations: [Obesity, unspecified] Onset: 07-07-2024 Chronic Ro-; endo-; and myocarditis; cardiomyopathy (except that caused by tuberculosis or sexually transmitted disease) (14 sources) Cardiomyopathy; Translations: [Cardiomyopathy, unspecified] Onset: 11-09-2024 12-31-2024 Chronic Peripheral and visceral atherosclerosis (1 source) 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 EHR Cmte Residual codes; unclassified (3 sources) Sleep apnea, unspecified; Translations: [Unspecified sleep apnea] Onset: 05-16-2022 04-03-2022 Chronic Residual codes; unclassified (20 sources) Obstructive sleep apnea syndrome; Translations: [Obstructive sleep apnea (adult) (pediatric)] Onset: 10-15-2022 04-21-2023 Chronic Residual codes; unclassified (3 sources) Bilateral lower limb edema; Translations: [Localized edema] 09-13-2024 Episodic Residual codes; unclassified (2 sources) Localized edema; Translations: [Edema] Onset: 12-20-2024 10-11-2024 Episodic Retinal detachments; defects; vascular occlusion; and retinopathy (3 sources) Nonexudative age-related macular degeneration; Translations: [Nonexudative age-related macular degeneration] Onset: 11-30-2024 Chronic Rheumatoid arthritis and related disease (2 sources) Rheumatoid arthritis; Translations: [Rheumatoid arthritis, unspecified] 10-13-2024 Chronic Skin and subcutaneous tissue infections (9 sources) Cellulitis of right lower limb; Translations: [Cellulitis of left lower limb] Onset: 05-16-2022 09-03-2024 Episodic Spondylosis; intervertebral disc disorders; other back problems (20 sources) Solitary sacroiliitis; Translations: [Sacroiliitis, not elsewhere classified] Onset: 09-25-2021 Resolved: 01-15-2022 Chronic Superficial injury; contusion (2 sources) Blister of foot; Translations: [Blister (nonthermal), right lesser toe(s), initial encounter] 12-31-2024 Episodic Transient cerebral ischemia (1 source) Transient cerebral ischemia; Translations: [Transient cerebral ischemic attack, unspecified] 08-19-2023 Chronic Unclassified (2 sources) PharmD Cardiology Consult Onset: 05-03-2024 Unclassified (1 source) Other pericardial effusion (noninflammatory); Translations: [Other pericardial effusion (noninflammatory)] Onset: 08-05-2023 Viral infection (2 sources) Disease caused by 2019-nCoV; Translations: [COVID-19] 07-21-2023 Episodic Past or Other Problems Problem Classification Problem Date Documented Da te Episodic/Chronic Abdominal hernia (20 sources) Umbilical hernia; Translations: [Umbilical hernia without obstruction or gangrene] Onset: 3 10-15-2022 Episodic Calculus of urinary tract (20 sources) Kidney stone; Translations: [Calculus of kidney] Onset: 3 10-15-2022 Episodic Coronary atherosclerosis and other heart disease (20 sources) History of cardiovascular surgery; Translations: [Presence of coronary angioplasty implant and graft] Onset: 5 08-13-2024 Episodic Fluid and electrolyte disorders (2 sources) Hypokalemia; Translations: [Hypokalemia] Onset: 4 Episodic Mood disorders (4 sources) Mood disorders Onset: 4 08-19-2023 Neoplasms of unspecified nature or uncertain behavior (20 sources) Neoplasm of uncertain behavior of kidney; Translations: [Neoplasm of uncertain behavior of unspecified kidney] Onset: 4 01-13-2023 Episodic Other acquired deformities (20 sources) Acquired spondylolisthesis; Translations: [Spondylolisthesis, site unspecified] Onset: 3 01-13-2023 Episodic Other aftercare (1 source) intermediate (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 of aspirin; Translations: [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] Onset: 2 Episodic Other aftercare (3 sources) intermediate (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 of insulin; Translations: [WAFER ABRADING MACHINE TENDER CURRENT USE OF INSULIN] Onset: 2 Episodic Other aftercare (1 source) Other rodent exterminator (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 therapy; Translations: [OTH WAFER ABRADING MACHINE TENDER CURRENT DRUG THERAPY] Onset: 2 Episodic Other aftercare (20 sources) Long-term current use of insulin; Translations: [terminal system operator (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 of insulin] Onset: 6 01-13-2023 Episodic Other and unspecified benign neoplasm (20 sources) Angiomyolipoma of kidney; Translations: [Benign lipomatous neoplasm of kidney] Onset: 3 10-15-2022 Episodic Other connective tissue disease (3 sources) Other specified soft tissue disorders; Translations: [OTHER SPEC SOFT TISSUE DISORDERS] Onset: 2 Episodic Other connective tissue disease (1 source) Synovial cyst of popliteal space [Finch], right knee; Translations: [SYNOVIAL CYST POP SPACE RIGHT KNEE] Onset: 2 Episodic Other connective tissue disease (20 sources) H/O: arthritis; Translations: [Personal history of other diseases of the musculoskeletal system and connective tissue] Onset: 4 01-13-2023 Episodic Other connective tissue disease (2 sources) Pain of toes of bilateral feet; Translations: [Pain in right toe(s)] 02-05-2024 Episodic Other connective tissue disease (20 sources) Muscle weakness; Translations: [Muscle weakness (generalized)] Onset: 5 08-13-2024 Episodic Other diseases of veins and lymphatics (20 sources) Peripheral venous insufficiency; Translations: [Venous insufficiency (chronic) (peripheral)] Onset: 0 01-13-2023 Episodic Other gastrointestinal disorders (20 sources) Oral phase dysphagia; Translations: [Dysphagia, oral phase] Onset: 5 08-13-2024 Episodic Other nervous system disorders (20 sources) Skin sensation disturbance; Translations: [Unspecified disturbances of skin sensation] Onset: 0 01-13-2023 Episodic Other nervous system disorders (20 sources) Paresthesia; Translations: [Paresthesia of skin] Onset: 3 01-13-2023 Episodic Other non-traumatic joint disorders (20 sources) Pain in left knee; Translations: [Pain in joint, lower leg] Onset: 5 08-13-2024 Episodic Other nutritional; endocrine; and metabolic disorders (20 sources) Obese class II; Translations: [Obesity, class 2] Onset: 5 Resolved: 5 08-13-2024 Chronic Other screening for suspected conditions (not mental disorders or infectious disease) (20 sources) Coronary arteriosclerosis excluded; Translations: [Encounter for observation for other suspected diseases and conditions ruled out] Onset: 4 Resolved: 5 10-15-2022 Episodic Other skin disorders (20 sources) Impaired skin integrity; Translations: [Unspecified skin changes] Onset: 5 07-07-2024 Episodic Comment on above: Problem added on doc umentation of skin impairments. Phlebitis; thrombophlebitis and thromboembolism (20 sources) History of thromboembolism of vein; Translations: [Personal history of other venous thrombosis and embolism] Onset: 5 Episodic Residual codes; unclassified (1 source) Asymptomatic menopausal state Onset: 2 Resolved: 2 Episodic Residual codes; unclassified (20 sources) Localized edema; Translations: [Localized edema] Onset: 3 10-28-2022 Episodic Residual codes; unclassified (20 sources) Acquired absence of cervix and uterus; Translations: [Acquired absence of both cervix and uterus] Onset: 5 08-13-2024 Episodic Residual codes; unclassified (20 sources) Noncompliance with medication regimen; Translations: [Non compliance w medication regimen] Onset: 5 09-13-2024 Episodic Spondylosis; intervertebral disc disorders; other back problems (20 sources) Radiculopathy, lumbar region; Translations: [Lumbar radiculopathy] Onset: 4 Resolved: 2 Episodic Comment on above: Problem List clean-u p per request of Phys. 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) Onset: 4 Unclassified (1 source) NPDR (chief complaint) Onset: 4 Unclassified (1 source) Gastroesophageal Reflux Disease-Health Related Quality of Life questionnaire 07-07-2024 Unclassified (1 source) Other pericardial effusion (noninflammatory); Translations: [Other pericardial effusion (noninflammatory)] Onset: 4 Urinary tract infections (20 sources) Acute cystitis; Translations: [Acute cystitis with hematuria] Onset: 5 05-12-2024 Episodic Results Test Name Value Interpretation Reference Range Facility Laboratory - Hematology and Cell countson 03-02-2025 HbA1c (Bld) [Mass fraction] 10.9 % [facility] No Panel Informationon 03-02 [facility] ITPon 02-23-2025 [place] [address] Cardiac Rehab Report Signed Patient: LAURA LAWSON MR#: [id number] : 1950 Acct:[id number] Age/Sex: 74 / F ADM Date: 12/09/24 Loc: CR Attending Dr: Misty Edwards M.D. Ordering Physician: RUDY ZENDEJAS Date of Service: 02/14/25 Procedure(s): ITP Accession Number(s): [id number] cc: [facility] Test Date: 2025-02-14 Pat Name: LAURA LAWSON Department: Room: - Gender: Female Internal Controls Specialist: : 1950 Requested By: RUDY ZENDEJAS M.D. Order Number: [id number] Reading MD: RUDY ZENDEJAS M.D. Interpretive Statements Patient may continue cardiac rehab as outlined in the treatment plan. Electronically Signed On 02-23-2025 18:00:31 EDT by RUDY ZENDEJAS M.D. Dictated By: RUDY ZENDEJAS Signed By: 02/23/25179902/23/251799 DD/ TD/TT: Metal Painter: [facility] Radiology, Radiologist, - 02/23/2025 [place] [address] Cardiac Rehab Report Signed Patient: LAURA LAWSON MR#: [id number] : 1950 Acct:[id number] Age/Sex: 74 / F ADM Date: 12/09/24 Loc: CR Attending Dr: Misty Edwards M.D. Ordering Physician: RUDY ZENDEJAS Date of Service: 02/14/25 Procedure(s): ITP Accession Number(s): [id number] cc: [facility] Test Date: 2025-02-14 Pat Name: LAURA LAWSON Department: Room: - Gender: Female Internal Controls Specialist: : 1950 Requested By: RUDY ZENDEJAS M.D. Order Number: [id number] Reading MD: RUDY ZENDEJAS M.D. Interpretive Statements Patient may continue cardiac rehab as outlined in the treatment plan. Electronically Signed On 02-23-2025 18:00:31 EDT by RUDY ZENDEJAS M.D. Dictated By: RUDY ZENDEJAS Signed By: 02/23/25179902/23/251799 DD/ TD/TT: Metal Painter: [facility] ITPOrdered By: Radiologist R adiology on 02-23-2025 [facility] Work Phone: ITPon 02-14-2025 Radiology Study observation (narrative) [facility] Orders Onlyon 02-13-2025 Orders Only [id number] Laura Lawson 1950 F Date Provider Department Center 02/13/2025 MISTY ESPARZA [facility] Family History Problem Relation Age of Onset JABARI disease Mother Heart attack Father Family Status - Relation Status Age at Mother Father [facility] Laboratory - Hematology and Cell countson 02-11-2025 HbA1c (Bld) [Mass fraction] 11.2 % [facility] Healthcare No Panel Informationon 02-11 Interpretation and review of laboratory results Abnormal [facility] Healthcare Office Visiton 01-18-2025 Follow-up visit [id number] Laura Lawson 1950 F Date Provider Department Center 01/18/2025 MISTY ESPARZA [facility] Family History Problem Relation Age of Onset JABARI disease Mother Heart attack Father Family Status - Relation Status Age at Mother Father Level of Service:72381 [place] OFFICE/OUTPATIENT ESTABLISHED LOW MDM 20 MIN [facility] ITPon 01-14-2025 [place] [address] Cardiac Rehab Report Signed Patient: LAURA LAWSON MR#: [id number] : 1950 Acct:[id number] Age/Sex: 74 / F ADM Date: 12/09/24 Loc: CR Attending Dr: Misty Edwards M.D. Ordering Physician: RUDY ZENDEJAS Date of Service: 01/14/25 Procedure(s): ITP Accession Number(s): [id number] cc: [facility] Test Date: 2025-01-14 Pat Name: LAURA LAWSON Department: Room: - Gender: Female Internal Controls Specialist: : 1950 Requested By: RUDY ZENDEJAS M.D. Order Number: [id number] Veronica MD: RUDY ZENDEJAS M.D. Interpretive Statements Patient may continue cardiac rehab as outlined in the treatment plan. Electronically Signed On 01-14-2025 10:28:12 EDT by RUDY ZENDEJAS M.D. Dictated By: RUDY ZENDEJAS Signed By: 01/14/25 1028 01/14/25 1028 DD/ 0945 TD/TT: Metal Painter: [facility] Radiology, Radiologist, - 01/14/2025 [place] [address] Cardiac Rehab Report Signed Patient: LAURA LAWSON MR#: [id number] : 1950 Acct:[id number] Age/Sex: 74 / F ADM Date: 12/09/24 Loc: CR Attending Dr: Misty Edwards M.D. Ordering Physician: RUDY ZENDEJAS Date of Service: 01/14/25 Procedure(s): ITP Accession Number(s): [id number] cc: [facility] Test Date: 2025-01-14 Pat Name: LAURA LAWSON Department: Room: - Gender: Female Internal Controls Specialist: : 1950 Requested By: RUDY ZENDEJAS M.D. Order Number: [id number] Reading MD: RUDY ZENDEJAS M.D. Interpretive Statements Patient may continue cardiac rehab as outlined in the treatment plan. Electronically Signed On 01-14-2025 10:28:12 EDT by RUDY ZENDEJAS M.D. Dictated By: RUDY ZENDEJAS Signed By: 01/14/25 1028 01/14/25 1028 DD/ 0945 TD/TT: Metal Painter: [facility] Radiology Study observation (narrative) [facility] Healthcare ITPOrdered By: Radiologist R adiology on 01-14-2025 [facility] Work Phone: Orders Onlyon 01-13-2025 Orders Only [id number] Laura Lawson 1950 F Date Provider Department Center 01/13/2025 MISTY ESPARZA [facility] Family History Problem Relation Age of Onset JABARI disease Mother Heart attack Father Family Status - Relation Status Age at Mother Father [facility] Laboratory - Hematology and Cell countson 12-23-2024 HbA1c (Bld) [Mass fraction] 10.4 % [facility] Healthcare No Panel Informationon 12-23 [facility] Orders Onlyon 12-21-2024 Orders Only [id number] Laura Lawson 1950 F Date Provider Department Center 12/21/2024 [id number], HISTORICAL [facility] Family History Problem Relation Age of Onset JABARI disease Mother Heart attack Father Family Status - Relation Status Age at Mother Father [facility] ALL BASIC METABOLIC PANELon 12-20-2024 Anion gap [Moles/Vol] 12.7 mmol/L NO [facility] Calcium [Mass/Vol] 9.9 mg/dL 8.5 - 10. 1 mg/dL [facility] Chloride [Moles/Vol] 101 mmol/L 98 - 10 7 mmol/L [facility] CO2 [Moles/Vol] 30.4 mmol/L 21.0 - 32.0 mmol/L [facility] Creatinine [Mass/Vol] 1.08 mg/dL High 0.55 - 1.02 mg/dL [facility] GFR/1.73 sq M.predicted CKD-EPI (S/P/Bld) [Vol rate/Area] >60 >=60 mL/min/1.73m 2 [facility] Glucose [Mass/Vol] 394 mg/dL High 74 - 106 mg/dL [facility] Potassium [Moles/Vol] 4.1 mmol/L 3.5 - 5.1 mmol/L [facility] Sodium [Moles/Vol] 140 mmol/L 136 - 145 mmol/L [facility] TBH EGFR-NON AF EQUATORIAL GUINEAN 50 Low >=60 mL/min/1.73m 2 [facility] Urea nitrogen [Mass/Vol] 25 mg/dL High 7.0 - 18.0 mg/dL [facility] Urea nitrogen/Creatinine [Mass ratio] 23.1 mg/mg [facility] ALL PRO BNPon 12-20-2024 NT PRO B TYPE NATRIURETIC PEPT 74318 pg/mL Critically high NINF - 900.0 pg/mL [facility] Comment on above: RESULTS CALLED TO MACHADO RN No Panel Informationon 12-20 Interpretation and review of laboratory results Abnormal [facility] Office Visiton 12-20-2024 Follow-up visit [id number] Laura Lawson A 1950 F Date Provider Department Center 12/20/2024 [id number], [facility] Family History Problem Relation Age of Onset JABARI disease Mother Heart attack Father Family Status - Relation Status Age at Mother Father Level of Service:50454 [place] OFFICE/OUTPATIENT ESTABLISHED MOD MDM 30 MIN [facility] ITPon 12-15-2024 [place] [address] Cardiac Rehab Report Signed Patient: LAURA LAWSON MR#: [id number] : 1950 Acct:[id number] Age/Sex: 74 / F ADM Date: 12/09/24 Loc: CR Attending Dr: Misty Edwards M.D. Ordering Physician: Jorje Camarillo D.O. Date of Service: 12/15/24 Procedure(s): ITP Accession Number(s): [id number] cc: [facility] Test Date: 2024-12-15 Pat Name: LAURA LAWSON Department: Room: - Gender: Female Internal Controls Specialist: : 1950 Requested By: Jorje aCmarillo Order Number: [id number] Reading MD: Jorje Camarillo Interpretive Statements Patient appears disinterested in contributing to her own health. She is encouraged to participate in cardiac rehabilitation and be compliant with cardiology recommendations, especially regarding diet and fluid restrictions. Electronically Signed On 12-15-2024 10:11:58 EDT by Jorje Camarillo Dictated By: Jorje Camarillo D.O. Signed By: 12/15/24 1012 12/15/24 1012 DD/ 0941 TD/TT: Metal Painter: [facility] Radiology, Radiologist, MD - 12/15/2024 The [place] [id number] Cardiac Rehab Report Signed Patient: LAURA LAWSON MR#: [id number] : 1950 Acct:[id number] Age/Sex: 74 / F ADM Date: 12/09/24 Loc: CR Attending Dr: Misty Edwards M.D. Ordering Physician: Jorje Camarillo D.O. Date of Service: 12/15/24 Procedure(s): ITP Accession Number(s): [id number] cc: [facility] Test Date: 2024-12-15 Pat Name: LAURA LAWSON Department: Room: - Gender: Female Internal Controls Specialist: : 1950 Requested By: Jorje Camarillo Order Number: [id number] Reading MD: Jorje Camarillo Interpretive Statements Patient appears disinterested in contributing to her own health. She is encouraged to participate in cardiac rehabilitation and be compliant with cardiology recommendations, especially regarding diet and fluid restrictions. Electronically Signed On 12-15-2024 10:11:58 EDT by Jorje Camarillo Dictated By: Jorje Camarillo D.O. Signed By: 12/15/24 1012 12/15/24 1012 DD/ 0 TD/TT: Metal Painter: [facility] Radiology Study observation (narrative) [facility] ITPOrdered By: Delbert Vaughan adiology on 12-15-2024 [facility] Work Phone: XR CHEST 2Von 12-14-2024 [place] [address] XRay Report Signed Patient: LAURA LAWSON MR#: [id number] : 1950 Acct:[id number] Age/Sex: 74 / F ADM Date: 12/14/24 Loc: [facility] Attending Dr: Misty Edwards M.D. Ordering Physician: Misty Edwards M.D. Date of Service: 12/14/24 Procedure(s): XR chest 2V Accession Number(s): [id number] cc: ABRAHAM CESAR ; Misty Edwards M.D. [place] [id number] Patient Name: LAURA LAWSON MRN: [id number] date: 1950 Sex: F Assigned Patient Location: RAD Current Patient Location: [facility] Accession/Order Number: [id number] Exam Date: 12/14/2024 15:25 Report Date: 12/14/2024 15:26 At the request of: MISTY EDWARDS MD Procedure: XR chest 2V Plain [...] Devlin M.D. 12/14/2024 3:26 PM Dictation Location: [place] [address] Electronically authenticated by: [id number] Y Date: 12/14/2024 15:26 Dictated By: Amaury Devlin D.O. Signed By: 12/14/24 1529 DD/ 1526 TD/TT: Metal Painter: [facility] Radiology, Radiologist, - 12/14/2024 [place] [address] XRay Report Signed Patient: LAURA LAWSON MR#: [id number] : 1950 Acct:[id number] Age/Sex: 74 / F ADM Date: 12/14/24 Loc: [facility] Attending Dr: Misty Edwards M.D. Ordering Physician: Misty Edwards M.D. Date of Service: 12/14/24 Procedure(s): XR chest 2V Accession Number(s): [id number] cc: ABRAHAM CESAR ; Misty Edwards M.D. The [address] [address] Patient Name: LAURA LAWSON MRN: [facility]:[id number] date: 1950 Sex: F Assigned Patient Location: [facility] Current Patient Location: [facility] Accession/Order Number: [id number] Exam Date: 12/14/2024 15:25 Report Date: 12/14/2024 15:26 At the request of: MISTY EDWARDS MD Procedure: XR chest 2V Plain [...] Devlin M.D. 12/14/2024 3:26 PM Dictation Location: [place] [address] Electronically authenticated by: [id number] Y Date: 12/14/2024 15:26 Dictated By: Amaury Devlin D.O. Signed By: 12/14/24 1529 DD/ 1526 TD/TT: Metal Painter: [facility] [employer] Radiology Study observation (narrative) [employer] XR CHEST 2VOrdered By: [employer] Radiology on 12-14-2024 [employer] Work Phone: HPon 12-13-2024 [facility] Electrophysiology Consult Note [place] [facility] Reason for visit: Ischemic cardiomyopathy [...] Not At Risk (02/23/2024) Received from [facility] AUDIT-C Frequency of Alcohol Consumption: Never Average [...] Physical Activity: Inactive (02/23/2024) Received from [facility] Exercise Vital Sign Days of Exercise per Week: 0 days Minutes of Exercise per Session: 0 min Stress: No Stress Concern Present (02/23/2024) Received from [facility] [place] of Occupational Health - Occupational Stress Questionnaire Feeling of Stress : Not at all Social Connections: Moderately Isolated (02/23/2024) Received from [facility] Social Connection and Isolation Panel [NHANES] Frequency of Communication with Friends and Family: More than three times a week Frequency of Social Gatherings with Friends and Family: Once a week Attends Christian Services: Never Active Member of Clubs or Organizations: Yes Attends Club or Organization Meetings: 1 to 4 times per year Marital Status: Never Intimate Partner Violence: Unknown (04/21/2024) Humiliation, Afraid, Rape, and Kick questionnaire Fear of Current or Ex-Partner: No Emotionally Abused: Not on file Physically Abused: Not on file Sexually Abused: Not on file Depression: Not at risk (10/13/2024) Received from [facility] PHQ-2 Patient Health Questionnaire-2 Score: 0 Housing Stability: Low Risk (04/21/2024) Housing Stability Vital Sign Unable to Pay for Housing in the Last Year: No Number of Times Moved in the Last Year: Not on file Homeless in the Last Year: No Utilities: Not At Risk (04/21/2024) [facility] Utilities Threatened with loss of utilities: No Health Literacy: Adequate Health Literacy (02/23/2024) Received from [email or web address] Frequency of need for help [...] by mouth in the morning. 90 tablet (more content not included)... [facility] NURSNOTEon 12-13-2024 NURSNOTE RN educated pt on d/ c instructions. This included: site care, limited physical [...] any questions or concerns if pt verbalized. Normal [facility] NURSNOTE CHG wipes and betadine nasal swabs completed. [facility] Orders Onlyon 12-13-2024 Orders Only [id number] Laura Lawson 1950 F Date Provider Department Center 12/13/2024 PAT BARRAZA [facility] Family History Problem Relation Age of Onset JABARI disease Mother Heart attack Father Family Status - Relation Status Age at Mother Father Normal [facility] ALL CBC WITH AUTO DIFFon BASOPHILS ABSOLUTE AUTO 0.1 [facility] Basophils/100 WBC (Bld) 0.7 % 0.2 - 2.0 % [facility] Eosinophils/100 WBC (Bld) 2.1 % 0.9 - 7.0 % [facility] Erythrocyte distribution width (RBC) [Ratio] 19.1 % High 11.0 - 15.0 % [facility] Hematocrit (Bld) [Volume fraction] 37.1 % 36.0 - 48.0 % [facility] Hemoglobin (Bld) [Mass/Vol] 11.5 g/dL Low 12.0 - 16.0 g/dL [facility] IMMATURE GRANULOCYTES ABS AUTO 0.02 [facility] Immature granulocytes/100 WBC (Bld) 0.3 % 0.0 - 0.5 % [facility] Interpretation and review of laboratory results Abnormal [facility] LYMPHOCYTES ABSOLUTE AUTO 1.1 Low [facility] Lymphocytes/100 WBC (Bld) 14.6 % Low 20.5 - 60.0 % [facility] MCH (RBC) [Entitic mass] 28.5 pg 26.7 - 34.0 pg [facility] MCHC (RBC) [Mass/Vol] 31 g/dL 29.9 - 35.2 g/dL [facility] MCV (RBC) [Entitic vol] 91.8 fL 81.0 - 99.0 fL [facility] MONOCYTES ABSOLUTE AUTO 0.9 High N [facility] Monocytes/100 WBC (Bld) 11.8 % 1.7 - 12.0 % [facility] NEUTROPHILS ABSOLUTE AUTO 5.4 [facility] Neutrophils/100 WBC (Bld) 70.5 % 43.0 - 75.0 % [facility] Platelet mean volume (Bld) [Entitic vol] 9.5 fL 9.5 - 13.5 fL [facility] TBH EO # 0.2 [facility]H PLT 287 [facility] TB RBC 4.04 Low [facility] TBH WBC 7.6 [facility] US arterial pvr rest Evelia US arterial pvr rest [facility] Main [address] [address] Ultrasound Report Signed Patient: Laura Lawson MR#: [id number] : 1950 Acct:[id number] Age/Sex: 74 / F ADM Date: 12/07/24 Loc: Room: Type: [facility] Attending Dr: Molly Gallegos APRN Ordering [...] Aguilar MD,FACS,FSVS 12/08/2024 9:07 AM Dictation Location: [place] [address] Tech: Shari Kulkarni Transcribed By: LIBBY 12/08/24 09 Dictated By: Tee Aguilar MD 12/08/24 09 Signed By: 12/08/24 09 Normal [facility] Orders Onlyon 12-06-2024 Orders Only [id number] Laura Lawson 1950 F Date Provider Department Center 12/06/2024 CHYNA FELICIANO [facility] Family History Problem Relation Age of Onset JABARI disease Mother Heart attack Father Family Status - Relation Status Age at Mother Father Normal [facility] 36on 12-01-2024 36 We just weighed her she has put on 20 lbs since November 12 2024 [facility] Aerobic Cultureon 11-29-2024 Aerobic Culture ORGANISM: Pseudomona s aeruginosa (O:PSEAER) Quantity of Growth Moderate Growth ORGANISM: Klebsiella pneumoniae (O:KLEPNE) Quantity of Growth Moderate Growth ORGANISM: Mariam albicans (O:CANALB) Quantity of Growth Rare Growth No Anaerobes Isolated 3 Days Gram Stain Result No Bacteria Seen Aerobic HAL Charge (NMIC56) ---- SUSCEPTIBILITY --- ORGANISM: O:PSEAER ANTIBIOTIC INTERPRETATION HAL Amikacin S <16 Aztreonam I <4 Cefepime S <2 Ceftazidime I 4 Ceftazidime/Avibactam S <4 Ceftolozane/Tazobacta m S <2 Ciprofloxacin S <0.25 Gentamicin S <2 Levofloxacin S <0.5 Meropenem S <1 Piperacillin/Tazobact am I <8 Tobramycin S <2 Aerobic HAL Charge (NMIC56) ---- SUSCEPTIBILITY --- ORGANISM: O:KLEPNE ANTIBIOTIC INTERPRETATION HAL Amikacin S <16 Amoxacillin/K Clavulanate S <8 Ampicillin/Sulbactam S <4 Aztreonam S <4 Cefazolin S <2 Cefepime S <2 Ceftazidime S <1 Ceftazidime/Avibactam S <4 Ceftolozane/Tazobacta m S <2 Ceftriaxone S <1 Cefuroxime S <4 Ciprofloxacin S <0.25 Ertapenem S <0.5 Gentamicin S <2 Levofloxacin S <0.5 Meropenem S <1 Meropenem/Vaborbactam S <2 Piperacillin/Tazobact am S <8 Tetracycline R >8 Tigecycline S <2 Tobramycin S <2 Trimethoprim/Sulfamet hoxazole S <0.5 S = SUSCEPTIBLE I = [...] RESISTANT TO ALL B-LACTAM DRUGS. PERFORMED BY: [place] [address] PATHOLOGIST CLUTCH ASSEMBLER SAVITA JEFFERSON M.D. Normal [facility] Comment on above: Performed By: #### G S, AERC #### [facility] [address] [place] [address] Aerobic cultureOrdered By: Phillip Gallegos on 11-29-2024 Bacteria identified Aer cx Nom (Unsp spec) Pseudomonas aeruginosa Abnormal [facility] Bacteria identified Aer cx Nom (Unsp spec) Klebsiella pneumoniae Abnormal [facility] Bacteria identified Aer cx Nom (Unsp spec) Mariam albicans Abnormal [facility] Anaerobic cultureOrdered By: Molly Gallegos on 11-29-2024 Bacteria identified Anaer cx Nom (Unsp spec) No Anaerobes Isolated 3 Days [facility] Gram Stainon 11-29-2024 Microscopic observation Gram stain Nom (Unsp spec) Gram Stain Result No Bacteria Seen PERFORMED BY: [place] [address] PATHOLOGIST CLUTCH ASSEMBLER SAVITA JEFFERSON M.D. Normal [facility] Comment on above: Performed By: #### G S, AERC #### [facility] [address] [place], [place] [id number] [facility] Gram stain microscopyOrdered By: Molly Gallegos on 11-29-2024 Microscopic observation Gram stain Nom (Unsp spec) [facility] ITPon 11-22-2024 [place] [address] Cardiac Rehab Report Signed Patient: LAURA LAWSON MR#: [id number] : 1950 Acct:[id number] Age/Sex: 73 / F ADM Date: 11/22/24 Loc: CR Attending Dr: Misty Edwards M.D. Ordering Physician: Jorje Camarillo D.O. Date of Service: 11/22/24 Procedure(s): ITP Accession Number(s): [id number] cc: [facility] Test Date: 2024-11-22 Pat Name: LAURA LAWSON Department: Room: - Gender: Female Internal Controls Specialist: : 1950 Requested By: Jorje Camarillo Order Number: [id number] Veronica MD: Jorje Camarillo Interpretive Statements Okay to proceed with outlined treatment plan. Electronically Signed On 11-22-2024 18:31:15 EDT by Jojre Camarillo Dictated By: Jorje Camarillo D.O. Signed By: 11/22/24183011/22/241830 DD/ 1146 TD/TT: Metal Painter: [facility] Radiology, Radiologist, MD - 11/22/2024 [place] [address] Cardiac Rehab Report Signed Patient: LAURA LAWSON MR#: [id number] : 1950 Acct:[id number] Age/Sex: 73 / F ADM Date: 11/22/24 Loc: CR Attending Dr: Misty Edwards M.D. Ordering Physician: Jorje Camarillo D.O. Date of Service: 11/22/24 Procedure(s): ITP Accession Number(s): [id number] cc: [facility] Test Date: 2024-11-22 Pat Name: LAURA LAWSON Department: Room: - Gender: Female Internal Controls Specialist: : 1950 Requested By: Jorje Camarillo Order Number: [id number] Veronica MD: Jorje Camarillo Interpretive Statements Okay to proceed with outlined treatment plan. Electronically Signed On 11-22-2024 18:31:15 EDT by Jorje Camarillo Dictated By: Jorje Camarillo D.O. Signed By: 11/22/24183011/22/241830 DD/ 1146 TD/TT: Metal Painter: [facility] Radiology Study observation (narrative) [facility] ITPOrdered By: Delbert ochoaiology on 11-22-2024 [facility] Work Phone: ITPon 11-17-2024 [place] [address] Cardiac Rehab Report Signed Patient: LAURA LAWSON MR#: [id number] : 1950 Acct:[id number] Age/Sex: 73 / F ADM Date: 11/17/24 Loc: CR Attending Dr: Misty Edwards M.D. Ordering Physician: Jorje Camarillo D.O. Date of Service: 11/17/24 Procedure(s): ITP Accession Number(s): [id number] cc: [facility] Test Date: 2024-11-17 Pat Name: LAURA LAWSON Department: Room: - Gender: Female Internal Controls Specialist: : 1950 Requested By: Jorje Camarillo Order Number: [id number] Veronica MD: Jorje Camarillo Interpretive Statements Okay to proceed with outlined treatment plan. Electronically Signed On 11-17-2024 17:25:09 EDT by Jorje Camarillo Dictated By: Jorje Camarillo D.O. Signed By: 11/17/24 1725 11/17/24 172 DD/ 1445 TD/TT: Metal Painter: [facility] Radiology, Radiologist, MD - 11/17/2024 [place] [address] Cardiac Rehab Report Signed Patient: LAURA LAWSON MR#: [id number] : 1950 Acct:[id number] Age/Sex: 73 / F ADM Date: 11/17/24 Loc: CR Attending Dr: Misty Edwards M.D. Ordering Physician: Jorje Camarillo D.O. Date of Service: 11/17/24 Procedure(s): ITP Accession Number(s): [id number] cc: [facility] Test Date: 2024-11-17 Pat Name: LAURA LAWSON Department: Room: - Gender: Female Internal Controls Specialist: : 1950 Requested By: Jorje Camarillo Order Number: [id number] Veronica MD: Jorje Camarillo Interpretive Statements Okay to proceed with outlined treatment plan. Electronically Signed On 11-17-2024 17:25:09 EDT by Jorje Camarillo Dictated By: Jorje Camarillo D.O. Signed By: 11/17/24 1725 11/17/24 172 DD/ 144 TD/TT: Metal Painter: [facility] Radiology Study observation (narrative) [facility] ITPOrdered By: Radiologist R adiology on 11-17-2024 [facility] Healthcare Work Phone: Orders Onlyon 11-17-2024 Orders Only [id number] Jabari Lawsonaldine A 1950 F Date Provider Department Center 11/17/2024 NKECHI MATUTE Family History Problem Relation Age of Onset JABARI disease Mother Heart attack Father Family Status - Relation Status Age at Mother Father Normal [facility] Office Visiton 11-09-2024 Follow-up visit [id number] LuluLaura A 1950 F Date Provider Department Center 11/09/2024 MISTY ESPARZA Family History Problem Relation Age of Onset JABARI disease Mother Heart attack Father Family Status - Relation Status Age at Mother Father Level of Service:48677 [place] OFFICE/OUTPATIENT NEW HIGH MDM 60 MINUTES Normal [facility] Orders Onlyon 11-09-2024 Orders Only [id number] Fara Lawsonine A 1950 F Date Provider Department Center 11/09/2024 NKECHI MATUTE Family History Problem Relation Age of Onset JABARI disease Mother Heart attack Father Family Status - Relation Status Age at Mother Father Normal [facility] 36on 10-27-2024 36 Regarding echo resul t from 10/20/2024: MD Vandana Keating MA When she comes to see andrew, please have him consider increasing entresto to 1 tablet bid. Patient is scheduled to see Dr. Edwards on 11/09/2024. Normal [facility] CA ECHO DOPPLER COMPLETEon 0 10-21-[address] [address] Cardiology Report Signed Patient: LAURA LAWSON MR#: [id number] : 1950 Acct:[id number] Age/Sex: 73 / F ADM Date: 10/20/24 Loc: CARD Attending Dr: RUDY ZENDEJAS Ordering Physician: RUDY ZENDEJAS Date of Service: 10/20/24 Procedure(s): CA echo doppler complete Accession Number(s): [id number] cc: ABRAHAM CESAR ; RUDY ZENDEJAS Patient Name: LAURA LAWSON MR#: [id number] : 1950 Exam Date: 10/20/2024 Ordering Doctor: DR RUDY ZENDEJAS M.D. ECHOCARDIOGRAM REPORT PROCEDURE: CA ECHO [...] 2.94 cm Aortic Valve AoV Area (Peak Radha): 2.16 cm2, 2.16 cm2 AoV Area (VTI): [...] Pressure: 49.42 ml, 49.42 ml Dictated by: Rudy Zendejas M.D. on 10/21/2024 at 18:55 Approved by: Rudy Zendejas M.D. on 10/21/2024 at 19:07 Dictated By: RUDY ZENDEJAS Signed By: (more content not included)... [facility] Radiology, Radiologist, MD - 10/21/2024 The [place] [id number] Cardiology Report Signed Patient: LAURA LAWSON MR#: [id number] : 1950 Acct:[id number] Age/Sex: 73 / F ADM Date: 10/20/24 Loc: CARD Attending Dr: RUDY ZENDEJAS Ordering Physician: RUDY ZENDEJAS Date of Service: 10/20/24 Procedure(s): CA echo doppler complete Accession Number(s): [id number] cc: ABRAHAM CESAR ; RUDY ZENDEJAS Patient Name: LAURA LAWSON MR#: [id number] : 1950 Exam Date: 10/20/2024 Ordering Doctor: DR RUDY ZENDEJAS M.D. ECHOCARDIOGRAM REPORT PROCEDURE: CA ECHO [...] 2.94 cm Aortic Valve AoV Area (Peak Radha): 2.16 cm2, 2.16 cm2 AoV Area (VTI): [...] Pressure: 49.42 ml, 49.42 ml Dictated by: Rudy Zendejas M.D. on 10/21/2024 at 18:55 Approved by: Rudy Zendejas M.D. on 10/21/2024 at 19:07 Dictated By: RUDY ZENDEJAS Signed By: 10/21/241907 DD/ 06 TD/TT: Metal Painter: [facility] Radiology Study observation (narrative) [facility] CA ECHO DOPPLER COMPLETEOrde red By: Radiologist Radiology on 10-21-2024 [facility] Work Phone: XR lumbar spine AP/LAT/FLX/E XTon 10-21-2024 XR lumbar spine AP/LAT/FLX/EXT [facility] [place] [address] XRay Report Signed Patient: Laura Lawson MR#: [id number] : 1950 Acct:[id number] Age/Sex: 73 / F ADM Date: 10/21/24 Loc: XD Room: Type: [facility] Attending Dr: Abner Roa MD Copies [...] with endplate spurring. SOFT TISSUES: Unremarkable BONY MINERALIZATION:Adequa te XR/XR lumbar spine AP/LAT/FLX/EXT IMPRESSION: Stable postsurgical changes. Progressive adjacent segment L2-3 spondylosis. Impression dictated by: Amaury Devlin M.D. 10/21/2024 1:48 PM Dictation Location: [place] [address] Transcribed By: [facility] 10/21/24 1348 Dictated By: Amaury Devlin DO 10/21/24 1344 Signed By: 10/21/24 1348 Normal [facility] HbA1c (Bld) [Mass fraction]o n 10-13-2024 Interpretation and review of laboratory results Abnormal [facility] Laboratory - Hematology and Cell countson 10-13-2024 HbA1c (Bld) [Mass fraction] 8.1 % [facility] Aerobic Cultureon 09-27-2024 Aerobic Culture ORGANISM: Methicilli n Juni Staph Aureus (O:MRSA) Quantity of Growth Heavy Growth ORGANISM: Enterococcus faecalis (O:ENTFAC) Quantity of Growth Heavy Growth No Anaerobes Isolated 3 Days Gram Stain Result 1+ Gram Positive Diplococci 2+ Gram Positive Bacilli No White Blood Cells Seen Aerobic HAL Charge (PCMIC38) ---- SUSCEPTIBILITY --- ORGANISM: O:MRSA ANTIBIOTIC INTERPRETATION HAL Azithromycin R >4 Ceftaroline S 1 Clindamycin R <0.25 Daptomycin S 1 Linezolid S 4 Oxacillin R >2 Penicillin R >2 Tetracycline R >8 Trimethoprim/Sulfamet hoxazole R >2 Vancomycin S 1 Aerobic HAL Charge (PCMIC38) ---- SUSCEPTIBILITY --- ORGANISM: O:ENTFAC ANTIBIOTIC INTERPRETATION HAL Ampicillin S [...] RESISTANT TO ALL B-LACTAM DRUGS. PERFORMED BY: [place] [address] PATHOLOGIST CLUTCH ASSEMBLER NIMISHA PALACIO M.D. Normal [facility] Comment on above: Performed By: #### A [facility] #### [address] Aerobic cultureOrdered By: Phillip Gallegos on 09-27-2024 Bacteria identified Aer cx Nom (Unsp spec) Methicillin Resis Staph Aureus Abnormal [facility] Bacteria identified Aer cx Nom (Unsp spec) Enterococcus faecalis Abnormal [facility] Anaerobic cultureOrdered By: Molly Gallegos on 09-27-2024 Bacteria identified Anaer cx Nom (Unsp spec) Anaerobic culture [facility] Bacteria identified Anaer cx Nom (Unsp spec) No Anaerobes Isolated 3 Days [facility] Bacteria identified Aer cx N om (Unsp spec)Ordered By: Molly Gallegos on 09-27-2024 Aerobic Culture Abnormal [facility] Aerobic Culture Abnormal [facility] Gram stain microscopyOrdered By: Molly Gallegos on 09-27-2024 Microscopic observation Gram stain Nom (Unsp spec) Gram stain microscopy [facility] Microscopic observation Gram stain Nom (Unsp spec) [facility] ALL BASIC METABOLIC PANELon 09-17-2024 Anion gap [Moles/Vol] 12.8 mmol/L [facility] Calcium [Mass/Vol] 9.9 mg/dL 8.5 - 10. 1 mg/dL [facility] Chloride [Moles/Vol] 103 mmol/L 98 - 10 7 mmol/L [facility] CO2 [Moles/Vol] 26.9 mmol/L 21.0 - 32.0 mmol/L [facility] Creatinine [Mass/Vol] 0.93 mg/dL 0.55 - 1.02 mg/dL [facility] GFR/1.73 sq M.predicted CKD-EPI (S/P/Bld) [Vol rate/Area] >60 >=60 mL/min/1.73m 2 [facility] Glucose [Mass/Vol] 237 mg/dL High 74 - 106 mg/dL [facility] Interpretation and review of laboratory results Abnormal [facility] Potassium [Moles/Vol] 3.7 mmol/L 3.5 - 5.1 mmol/L [facility] Sodium [Moles/Vol] 139 mmol/L 136 - 145 mmol/L [facility] TBH EGFR-NON AF EQUATORIAL GUINEAN 59 Low >=60 mL/min/1.73m 2 [facility] Urea nitrogen [Mass/Vol] 16 mg/dL 7.0 - 18.0 mg/dL [facility] Urea nitrogen/Creatinine [Mass ratio] 17.2 mg/mg [facility] Office Visiton 09-03-2024 Follow-up visit [id number] Laura Lawson 1950 Date Provider Department Center 09/03/2024 Rosemary-RUDY ZENDEJAS ESTHELA [facility] Family History Problem Relation Age of Onset JABARI disease Mother Heart attack Father Family Status - Relation Status Age at Mother Father Level of Service:05380 [place] OFFICE/OUTPATIENT ESTABLISHED MOD MDM 30 MIN Normal [facility] Telephone Visiton 08-23-2024 Telephone Visit [id number] Laura Lawson A 1950 Date Provider Department Center 08/23/2024 CAMPBELL GRIDER [facility] [place] [facility] Family History Problem Relation Age of Onset JABARI disease Mother Heart attack Father Family Status - Relation Status Age at Mother Father Reason for Visit and Comments: PharmD GLP1RA Management [Other] Normal [facility] Orders Onlyon 08-10-2024 Orders Only [id number] Laura Lawson A 1950 Date Provider Department Center 08/10/2024 93987-KNAEBUNO, KARA HVCANTICANGELLA [place] [facility] Family History Problem Relation Age of Onset JABARI disease Mother Heart attack Father Family Status - Relation Status Age at Mother Father Normal [facility] Telephone Visiton 08-06-2024 Telephone Visit [id number] Laura Lawson 1950 Provider Department Center 08/06/2024 52828-GKINWOOTSUZANNE HARRELL HVCANTICOAMiracle [place] [facility] Family History Problem Relation Age of Onset JABARI disease Mother Heart attack Father Family Status - Relation Status Age at Mother Father Normal [facility] Coding Queryon 07-30-2024 Coding Query Coding Query From: Andrew ARGUETA, Martina To: Selvin Yeh DO; Cc: Nkechi Weldon; Sent: 07/14/2024 08:31:44 EST ! Subject: Coding Query Due Date/Time: 07/20/2024 08:31:00 EST Caller Name: LAURA LAWSON; Caller Number: H Mn Dr. Paster, I saw your response to Gretchen's query regarding CHF. I apologize that chronic [...] Hold off on restarting Entresto for today. H&N-69-llqi-old female with past medical history of CAD [...] Caller Name: LAURA LAWSON; Caller Number: H [facility] CA ECHO DOPPLER COMPLETEon 0 07-28-2024 [place] [address] Cardiology Report Signed Patient: LAURA LAWSON MR#: [id number] : 1950 Acct:[id number] Age/Sex: 73 / F ADM Date: 07/28/24 Loc: CARD Attending Dr: RUDY ZENDEJAS Ordering Physician: RUDY ZENDEJAS Date of Service: 07/28/24 Procedure(s): CA echo doppler complete Accession Number(s): [id number] cc: ABRAHAM CESAR ; RUDY ZENDEJAS Patient Name: LAURA LAWSON MR#: [id number] : 1950 Exam Date: 07/28/2024 Ordering Doctor: DR RUDY ZENDEJAS M.D. ECHOCARDIOGRAM REPORT PROCEDURE: CA ECHO DOPPLER COMPLETE INDICATIONS: Heart failure with reduced ejection fraction, cardiac stents, hypertension, diabetes COMPARISON: None. DESCRIPTION: COMPLETE ECHOCARDIOGRAM Real-time transthoracic echocardiography with 2D, M-mode, spectral and color flow Doppler performed. QUALITY: Technical quality was good. LEFT VENTRICLE: Normal chamber size. Mild concentric left ventricular hypertrophy. LV EF: Severely reduced left ventricular systolic function, mid and apical septal segments as well as the apex appeared to be akinetic, ejection fraction 30% DIASTOLIC: Unable to evaluate diastolic function due to significant mitral calcification. ATRIAL SEPTUM: Visually appears intact. LEFT ATRIUM: Severe dilatation. RIGHT ATRIUM: Normal chamber size. RIGHT VENTRICLE: Normal chamber size. Decreased right ventricular systolic function. TRICUSPID VALVE: Normal mobility and thickness. No stenosis with no regurgitation. MITRAL VALVE: Mildly thickened with normal mobility. No evidence of mitral valve stenosis. Moderate mitral annular calcification. Trivial mitral regurgitation. AORTIC VALVE: Normal trileaflet appearance. Mildly calcified aortic valve. Normal leaflet mobility. No evidence of aortic valve stenosis. No aortic regurgitation. AORTIC ROOT: Normal diameter and appearance. PULMONIC VALVE: Normal thickness and mobility. No stenosis. Mild regurgitation. PERICARDIUM: Trivial pericardial effusion. No evidence of pericardial tamponade IVC: Collapes with inspirations. PLEURA: CONCLUSION: Mild concentric left ventricular hypertrophy Normal left ventricle cavity size Severely reduced left ventricular systolic function, basal and mid apical segments and the apex appear to be akinetic, ejection fraction 30% Normal right ventricle size but mildly reduced systolic function No significant valvular abnormalities Moderate mitral annulus calcification Mild pulmonary insufficiency Trivial pericardial effusion without evidence of tamponade Adult Echocardiography Procedure Report Left Ventricle LVEDD (3.7 - 5.6 cm): 5.07 cm LVESD (2.2 - 4.0 cm): 3.67 cm LVIVS thickness (0.6 - 1.2 cm): 1.08 cm LVPW thickness (0.5 - 1.0 cm): 1.12 cm e': 0.05 m/s E - e': 12.73 LVOT Max Gradient: 2.00 mm[Hg] LVOT Area (cm2): 0.71 m/s Peak Velocity (LVOT): 0.71 m/s Mean Velocity (LVOT): 0.47 m/s LVOT Diameter 2.38 cm Left Ventricular Ejection Fraction: Left Atrium LA Volume Index (2D A2C): 53.20 ml/m2 Left Atrium Systolic Dimension: 4.91 cm Mitral Valve MV E to A Ratio: 0.63 MV Max Gradient: MV Mean Gradient: Mitral Valve A-Wave Peak Velocity: 0.91 m/s Mitral Valve E-Wave Peak Velocity: 0.58 m/s Cardiovascular Orifice Area: Right Ventricle RV Internal Diastolic Dimension: Aorta AO Root Diam: 3.08 cm Ascending Ao Diam: Aortic Valve AoV Area (Peak Radha): 2.26 cm2, 2.26 cm2 AoV Area (VTI): 2.16 cm2, 2.16 cm2 Deceleration Haralson: Pressure Half-Time: Peak Velocity(Antegrade Flow): 1.39 m/s Peak Gradient(Antegrade Flow): 7.72 mm[Hg] Mean Velocity(Antegrade Flow): 0.88 m/s Mean Gradient(Antegrade Flow): 3.79 mm[Hg] Velocity Time Integral: 30.97 cm Tricuspid Valve Peak Velocity (Regurgitant Flow (more content not included)... [facility] Radiology, Radiologist, MD - 07/28/2024 [place] [address] Cardiology Report Signed Patient: LAURA LAWSON MR#: [id number] : 1950 Acct:[id number] Age/Sex: 73 / F ADM Date: 07/28/24 Loc: CARD Attending Dr: RUDY ZENDEJAS Ordering Physician: RUDY ZENDEJAS Date of Service: 07/28/24 Procedure(s): CA echo doppler complete Accession Number(s): [id number] cc: ABRAHAM CESAR ; RUDY ZENDEJAS Patient Name: LAURA LAWSON MR#: [id number] : 1950 Exam Date: 07/28/2024 Ordering Doctor: DR RUDY ZENDEJAS M.D. ECHOCARDIOGRAM REPORT PROCEDURE: CA ECHO DOPPLER COMPLETE INDICATIONS: Heart failure with reduced ejection fraction, cardiac stents, hypertension, diabetes COMPARISON: None. DESCRIPTION: COMPLETE ECHOCARDIOGRAM Real-time transthoracic echocardiography with 2D, M-mode, spectral and color flow Doppler performed. QUALITY: Technical quality was good. LEFT VENTRICLE: Normal chamber size. Mild concentric left ventricular hypertrophy. LV EF: Severely reduced left ventricular systolic function, mid and apical septal segments as well as the apex appeared to be akinetic, ejection fraction 30% DIASTOLIC: Unable to evaluate diastolic function due to significant mitral calcification. ATRIAL SEPTUM: Visually appears intact. LEFT ATRIUM: Severe dilatation. RIGHT ATRIUM: Normal chamber size. RIGHT VENTRICLE: Normal chamber size. Decreased right ventricular systolic function. TRICUSPID VALVE: Normal mobility and thickness. No stenosis with no regurgitation. MITRAL VALVE: Mildly thickened with normal mobility. No evidence of mitral valve stenosis. Moderate mitral annular calcification. Trivial mitral regurgitation. AORTIC VALVE: Normal trileaflet appearance. Mildly calcified aortic valve. Normal leaflet mobility. No evidence of aortic valve stenosis. No aortic regurgitation. AORTIC ROOT: Normal diameter and appearance. PULMONIC VALVE: Normal thickness and mobility. No stenosis. Mild regurgitation. PERICARDIUM: Trivial pericardial effusion. No evidence of pericardial tamponade IVC: Collapes with inspirations. PLEURA: CONCLUSION: Mild concentric left ventricular hypertrophy Normal left ventricle cavity size Severely reduced left ventricular systolic function, basal and mid apical segments and the apex appear to be akinetic, ejection fraction 30% Normal right ventricle size but mildly reduced systolic function No significant valvular abnormalities Moderate mitral annulus calcification Mild pulmonary insufficiency Trivial pericardial effusion without evidence of tamponade Adult Echocardiography Procedure Report Left Ventricle LVEDD (3.7 - 5.6 cm): 5.07 cm LVESD (2.2 - 4.0 cm): 3.67 cm LVIVS thickness (0.6 - 1.2 cm): 1.08 cm LVPW thickness (0.5 - 1.0 cm): 1.12 cm e': 0.05 m/s E - e': 12.73 LVOT Max Gradient: 2.00 mm[Hg] LVOT Area (cm2): 0.71 m/s Peak Velocity (LVOT): 0.71 m/s Mean Velocity (LVOT): 0.47 m/s LVOT Diameter 2.38 cm Left Ventricular Ejection Fraction: Left Atrium LA Volume Index (2D A2C): 53.20 ml/m2 Left Atrium Systolic Dimension: 4.91 cm Mitral Valve MV E to A Ratio: 0.63 MV Max Gradient: MV Mean Gradient: Mitral Valve A-Wave Peak Velocity: 0.91 m/s Mitral Valve E-Wave Peak Velocity: 0.58 m/s Cardiovascular Orifice Area: Right Ventricle RV Internal Diastolic Dimension: Aorta AO Root Diam: 3.08 cm Ascending Ao Diam: Aortic Valve AoV Area (Peak Radha): 2.26 cm2, 2.26 cm2 AoV Area (VTI): 2.16 cm2, 2.16 cm2 Deceleration Haralson: Pressure Half-Time: Peak Velocity(Antegrade Flow): 1.39 m/s Peak Gradient(Antegrade Flow): 7.72 mm[Hg] Mean Velocity(Antegrade Flow): 0.88 m/s Mean Gradient(Antegrade Flow): 3.79 mm[Hg] Velocity Time Integral: 30.97 cm Tricuspid Valve Peak Velocity (Regurgitant Flow): Peak Velocity: Pulmonic Valve Mean Gradient: 4.24 mm[Hg] Mean Velocity: 0.97 m/s Peak Velocity: 1.44 m/s, 1.45 m/s Peak Gradient: 8.32 mm[Hg], 8.42 mm[Hg] Right Atrium Right Atrium Systolic Pressure: 28.25 ml, 28.25 ml Dictated by: Tapan Brooks MD on 07/28/2024 at 17:51 Approved by: Tapan Brooks MD on 07/28/2024 at 18:12 Dictated By: Tapan Brooks M.D. Signed By: 07/28/241812 DD/ 11 TD/TT: Metal Painter: [facility] Radiology Study observation (narrative) [facility] CA ECHO DOPPLER COMPLETEOrde red By: Radiologist Radiology on 07-28-2024 [facility] Work Phone: [facility] UA (CLEAN/CATCH) UNDERWRITING INTERNSHIP/HAL RO IF IND.on 07-20-2024 BILIRUBIN URINE Negative NEGATIVE [facility] BLOOD URINE Negative NEGATIVE [facility] Clarity (U) CLOUDY Abnormal CLEAR [facility] Color (U) LT. YELLOW YELLOW [facility] GLUCOSE URINE UA >=1000 Abnormal NEGATIVE mg/dL [facility] Interpretation and review of laboratory results Abnormal [facility] Ketones Ql (U) Negative NEGATIVE mg/dL [facility] Leukocyte esterase Test strip Ql (U) MODERATE Abnormal NEGATIVE [facility] NITRITE URINE Negative NEGATIVE [facility] pH (U) 5.5 [pH] 5.0 - 9.0 [facility] PROTEIN URINE Negative NEG/TRACE mg/dL [facility] SPECIFIC GRAVITY URINE 1.015 1.005 - 1.025 [facility] URINE MICROSCOPIC INDICATED YES [facility] UROBILINOGEN URINE 0.2 EU/dL 0.2 - 1.0 EU/dL [facility] Office Visiton 07-19-2024 Follow-up visit [id number] Laura Lawson 1950 F Date Provider Department Center 07/19/2024 RUDY SALAZAR [facility] Family History Problem Relation Age of Onset JABARI disease Mother Heart attack Father Family Status - Relation Status Age at Mother Father Level of Service:82441 [place] OFFICE/OUTPATIENT ESTABLISHED MOD MDM 30 MIN [facility] Telephoneon 07-13-2024 Telephone [id number] LuluFara pondanant Thomas 1950 F Date Provider Department Center 07/13/2024 [id number] [facility] Family History Problem Relation Age of Onset JABARI disease Mother Heart attack Father Family Status - Relation Status Age at Mother Father [facility] 36on 07-12-2024 38 Rx was discontinued by pharmacist [facility] Coding Queryon 07-12-2024 Coding Query Coding Query From: Gretchen Funez RN To: Selvin Yeh DO; Sent: [...] particular answer is desired or expected. Thank you!gretchen Shipley pressure ulcer unstageable right and left heel pressure ulcer unstageable bilateral buttock From: Selvin Yeh DO To: Gretchen Funez RN; Sent: 07/12/2024 11:27:46 EST Subject: RE: Coding Query Caller Name: LAURA LAWSON; Caller Number: [facility] Coding Query Coding Query From: Gretchen Funez RN To: Selvin Yeh DO; Sent: [...] particular answer is desired or expected. Thank you!gretchen Shipley From: Selvin Yeh DO To: Close RN, Gretchen A; Sent: 07/12/2024 11:24:34 EST Subject: RE: Coding Query Caller Name: LAURA LAWSON; Caller Number: H question... shouldnt it be chronic HFrEF ifthe patient had prior to arrival? the exacerbation noted. pt had [place] Normal [facility] BMPon 07-09-2024 Anion gap [Moles/Vol] 13 mmol/L Normal 6-16 [facility] Comment on above: Performed By: #### 2 [id number] #### [facility] [address] [place] [address] Calcium [Mass/Vol] 10.1 mg/dL Normal 8.9-11.1 [facility] Comment on above: Performed By: #### 2 [id number] #### [facility] [address] [place] [address] Chloride [Moles/Vol] 102 mmol/L Normal 101-111 [facility] Comment on above: Performed By: #### 2 [id number] #### [facility] [address] [place] [address] CO2 [Moles/Vol] 25 mmol/L Normal 21-31 [facility] Comment on above: Performed By: #### 2 [id number] #### [facility] [address] [place] [address] Creatinine [Mass/Vol] 0.9 mg/dL Normal 0.5-1.3 [facility] Comment on above: Performed By: #### 2 [id number] #### [facility] [address] [place] [address] Glucose [Mass/Vol] 94 mg/dL Normal 55-199 [facility] Comment on above: Performed By: #### 2 [id number] #### [facility] [address] [place] [address] Potassium [Moles/Vol] 4.4 mmol/L Normal 3.5-5.3 [facility] Comment on above: Performed By: #### 2 [id number] #### [facility] [address] [place] [address] Sodium [Moles/Vol] 136 mmol/L Normal 135-145 [facility] Comment on above: Performed By: #### 2 [id number] #### [facility] [address] [place] [address] Urea nitrogen [Mass/Vol] 24 mg/dL High 5-21 [facility] Comment on above: Performed By: #### 2 [id number] #### [facility] [address] [place] [address] Urea nitrogen/Creatinine [Mass ratio] 27 No Units High 10-20 [facility] Comment on above: Performed By: #### 2 [id number] #### [facility] [address] [place] [address] CBC w/ Auto Diffon 5 Band form neutrophils/100 WBC (Bld) 1.0 % Normal 0.0-6.0 [facility] Comment on above: Performed By: #### 2 [id number] #### [facility] [address] [place] [address] Basophils (Bld) [#/Vol] 0.0 E9/L Normal 0.0-0.[address] [facility] Comment on above: Performed By: #### 2 [id number] #### [facility] [address] [place] [address] Eosinophils (Bld) [#/Vol] 0.5 E9/L Normal 0.0-0.5 [facility] Comment on above: Performed By: #### 2 [id number] #### [facility] [address] [place] [address] Eosinophils/100 WBC (Bld) 4.0 % Normal 0.0-8.0 [facility] Comment on above: Performed By: #### 2 [id number] #### [facility] [address] [place] [address] Lymphocytes (Bld) [#/Vol] 1.9 E9/L Normal 1.0-4.0 [facility] Comment on above: Performed By: #### 2 [id number] #### [facility] [address] [place] [address] Lymphocytes/100 WBC (Bld) 16.0 % Normal 14.0-50.0 [facility] Comment on above: Performed By: #### 2 [id number] #### [facility] [address] [place] [address] Monocytes (Bld) [#/Vol] 2.0 E9/L High 0.2-1.0 [facility] Comment on above: Performed By: #### 2 [id number] #### [facility] [address] [place] [address] Neutrophils (Bld) [#/Vol] 7.4 E9/L Invalid Interpretation Code [facility] Comment on above: Performed By: #### 2 [id number] #### [facility] [address] [place] [address] RBC size Nom (Bld) NORMAL Invalid Interpretation Code [facility] Comment on above: Performed By: #### 2 [id number] #### [facility] [address] [place] [address] Segmented neutrophils/100 WBC (Bld) 62.0 % Normal 36.0-75.0 [facility] Comment on above: Performed By: #### 2 105693 #### [facility] [address] [place] [address] Erythrocyte distribution width (RBC) [Ratio] 21.2 % High 10.9-14.2 [facility] Comment on above: Performed By: #### 2 [id number] #### [facility] [address] [place] [address] Hematocrit (Bld) [Volume fraction] 38.7 % Normal 34.0-46.0 [facility] Comment on above: Performed By: #### 2 [id number] #### [facility] [address] [place] [address] Hemoglobin (Bld) [Mass/Vol] 13.2 g/dL Normal 12.0-16.0 [facility] Comment on above: Performed By: #### 2 [id number] #### [facility] [address] [place] [address] MCH (RBC) [Entitic mass] 32.3 pg Normal 27.0-34.0 [facility] Comment on above: Performed By: #### 2 [id number] #### [facility] [address] [place] [address] MCHC (RBC) [Mass/Vol] 34.1 g/dL Normal 31.4-36.0 [facility] Comment on above: Performed By: #### 2 [id number] #### [facility] [address] [place] [address] MCV (RBC) [Entitic vol] 94.7 fL Normal 80.0-100.[address] [facility] Comment on above: Performed By: #### 2 068522 #### [facility] [address] [place] [address] Platelet 282.0 E9/L Normal 150.0-500.0 [facility] Comment on above: Result Comment: Plat elet clumping present, platelet count appears normal on slide. Performed By: #### 2 [id number] #### [facility] [address] [place] [address] Platelet mean volume (Bld) [Entitic vol] 9.4 fL Normal 6.4-10.8 [facility] Comment on above: Performed By: #### 2 [id number] #### [facility] [address] [place] [address] RBC (Bld) [#/Vol] 4.1 E12/L Low 4.3-5.9 [facility] Comment on above: Performed By: #### 2 275276 #### [facility] [address] [place] [address] WBC corrected for nucl RBC Auto (Bld) [#/Vol] 11.8 E9/L High 4.0-11.0 [facility] Comment on above: Performed By: #### 2 [id number] #### [facility] [address] [place] [address] CHEMISTRYOrdered By: Lab ROP User on 07-09-2024 Glucose [Mass/Vol] 106 mg/dL High 55 - 99 mg/dL FTM C POC Subsection POC UsernamKASANDRA Handy Invalid Interpretation Code [facility] POC Subsection Sodium [Moles/Vol] [id number] mmol/L Invalid Interpretation Code [facility] POC Subsection Sodium [Moles/Vol] [id number] mmol/L Invalid Interpretation Code [facility] POC Subsection Glucose [Mass/Vol] 126 mg/dL High 55 - 99 mg/dL FTM C POC Subsection Comment on above: Result Comment: Radha yvon Meter POC UsernamKASANDRA Handy Invalid Interpretation Code [facility] POC Subsection Sodium [Moles/Vol] [id number] mmol/L Invalid Interpretation Code [facility] POC Subsection Sodium [Moles/Vol] 250394150 mmol/L Invalid Interpretation Code [facility] POC Subsection CHEMISTRYOrdered By: SYSTEM SYSTEM on 07-09-2024 Anion gap [Moles/Vol] 13 mmol/L Normal 6 - 16 mEq/L R emisol Chem Calcium [Mass/Vol] 10.1 mg/dL Normal 8.9 - 11. 1 mg/dL Remisol Chem Chloride [Moles/Vol] 102 mmol/L Normal 101 - 1 11 mmol/L [facility] Chem CO2 [Moles/Vol] 25 mmol/L Normal 21 - 31 mmol/L [facility] Chem Creatinine [Mass/Vol] 0.9 mg/dL Normal 0.5 - 1.3 mg/dL Rem[facility] Chem eGFR 68 mL/min/1.73 m2 Normal >=59mL/min /1. 73 m2 Rem[facility] Chem Glucose [Mass/Vol] 94 mg/dL Normal 55 - 199 mg/dL [facility] Chem Potassium [Moles/Vol] 4.4 mmol/L Normal 3.5 - 5.3 mmol/L [facility] Sodium [Moles/Vol] 136 mmol/L Normal 135 - 145 mmol/L [facility] Urea nitrogen [Mass/Vol] 24 mg/dL High 5 - 21 mg/dL [facility] Urea nitrogen/Creatinine [Mass ratio] 27 mg/mg High 10 - 20 [facility] Capillary Glucose POCon -3 Glucose [Mass/Vol] 106 mg/dL High 55-99 [facility] Comment on above: Performed By: #### 2 [id number] #### [facility] [address] [place] [address] Glucose [Mass/Vol] 126 mg/dL High 55-99 [facility] Comment on above: Result Comment: Radha yvon Meter Performed By: #### 2 [id number] #### [facility] [address] [place] [address] Coding Queryon 07-09-2024 Coding Query Coding Query From: Gretchen Funez RN To: Selvin Yeh DO; Sent: [...] particular answer is desired or expected. Thank you!gretchen [phone] Normal [facility] HEMATOLOGYOrdered By: Joyce Roberts on 07-09-2024 Band form neutrophils/100 WBC (Bld) 1.0 % Normal 0.0 - 6.0 % Remisol Heme Basophils (Bld) [#/Vol] 0.0 E9/L Normal 0.0 - 0.2 E9/L [facility]e Basophils/100 WBC (Bld) 0.0 % Normal 0.0 - 2.0 % Rem[facility] Heme Eosinophils (Bld) [#/Vol] 0.5 E9/L Normal 0.0 - 0.5 E9/L [facility]e Eosinophils/100 WBC (Bld) 4.0 % Normal 0.0 - 8.0 % [facility]e Lymphocytes (Bld) [#/Vol] 1.9 E9/L Normal 1.0 - 4.0 E9/L Rem[facility]e Lymphocytes/100 WBC (Bld) 16.0 % Normal 14.0 - 50.0 % Rem[facility] Heme Monocytes (Bld) [#/Vol] 2.0 E9/L High 0.2 - 1.0 E9/L [facility]e Monocytes/100 WBC (Bld) 17.0 % High 4.0 - 14.0 % [facility]e Neutrophils (Bld) [#/Vol] 7.4 E9/L Invalid Interpretation Code Remisol Heme RBC size Nom (Bld) NORMAL *NA* (07/09/24 5:48 AM) Invalid Interpretation Code Rem[facility] Heme Segmented neutrophils/100 WBC (Bld) 62.0 % Normal 36.0 - 75.0 % Rem[facility]e HEMATOLOGYOrdered By: SYSTEM SYSTEM on 07-09-2024 Erythrocyte distribution width (RBC) [Ratio] 21.2 % High 10.9 - 14.2 % Rem[facility]e Hematocrit (Bld) [Volume fraction] 38.7 % Normal 34.0 - 46.0 % Rem[facility] Heme Hemoglobin (Bld) [Mass/Vol] 13.2 g/dL Normal 12.0 - 16.0 gm/dL Remisol Heme MCH (RBC) [Entitic mass] 32.3 pg Normal 27.0 - 34.0 pg Remisol Heme MCHC (RBC) [Mass/Vol] 34.1 g/dL Normal 31.4 - 36.0 gm/dL [facility]e MCV (RBC) [Entitic vol] 94.7 fL Normal 80.0 - 100.0 fL [facility]e Platelet 282.0 E9/L Normal 150.0 - 500.0 E9/L [facility] Comment on above: Result Comment: Plat elet clumping present, platelet count appears normal on slide. Platelet mean volume (Bld) [Entitic vol] 9.4 fL Normal 6.4 - 10.8 fL Remisol Heme RBC (Bld) [#/Vol] 4.1 E12/L Low 4.3 - 5.9 E12/L Rem[facility] Heme WBC corrected for nucl RBC Auto (Bld) [#/Vol] 11.8 E9/L High 4.0 - 11.0 E9/L Rem[facility] Heme Inpatient Patient Summaryon 07-09-2024 Inpatient Patient Summary Inpatient Patient Summary FARA LAWSONANANT Thomas :1950 Visit Date:07/07/2024 Inpatient Discharge Instructions Your Care Team Admitting Physician - Luigi Montana MD Consulting Physician - [facility] Cardio, XXXX Luigi Montana MD Reason for [...] 5 mg Tab) potassium chloride (Potassium Chloride (Yvt-Lgaa-Zsh M20) 20 mEq oral tablet, extended release) [...] Up Appointments after Discharge Follow Up with MELBA BREWER, ABRAHAM Enriquez, MED When: Where: [address] [place] [address]- Follow Up with RUDY ZENDEJAS MD When: Within 1 to 2 [...] Unchanged meloxicam (meloxicam 15 mg Tab) 1 Tab (more content not included)... [facility] Interdisciplinary Note - Shiraz e Manageron 07-09-2024 Interdisciplinary Note - Slip Mixer Interdisciplinary Note - Slip Mixer Patient is awake and alert in bed, previously rounded with Dr Yeh. Pt is from [facility] and plan to return back today. Pt sttes her sister is aware of plan, as she was here earlier. Medicare rights reviewed. . PCP verified and insurance information reviewed and DME discussed. Contact information provided and white board update [facility] Comment on above: Result Comment: Elec tronically Signed By: Andrei ARGUETA, Dulce\.br\Date and Time Signed: 07/09/24 12:11 EST eGFRon 07-09-2024 eGFR 68 mL/min/1.73 m2 Normal >=59 [facility] Comment on above: Performed By: #### 1 [id number] #### [facility] [address] [place] [address] BMPon 07-08-2024 Anion gap [Moles/Vol] 10 mmol/L Normal 6-16 [facility] Comment on above: Performed By: #### 2 [id number] #### [facility] [address] [place] [address] Calcium [Mass/Vol] 9.8 mg/dL Normal 8.9-11.1 [facility] Comment on above: Performed By: #### 2 [id number] #### [facility] [address] [place] [address] Chloride [Moles/Vol] 101 mmol/L Normal 101-111 [facility] Comment on above: Performed By: #### 2 [id number] #### [facility] [address] [place] [address] CO2 [Moles/Vol] 28 mmol/L Normal 21-31 [facility] Comment on above: Performed By: #### 2 [id number] #### [facility] [address] [place] [address] Creatinine [Mass/Vol] 1.0 mg/dL Normal 0.5-1.3 [facility] Comment on above: Performed By: #### 2 [id number] #### [facility] [address] [place] [address] Glucose [Mass/Vol] 162 mg/dL Normal 55-199 [facility] Comment on above: Performed By: #### 2 [id number] #### [facility] [address] [place] [address] Potassium [Moles/Vol] 4.0 mmol/L Normal 3.5-5.3 [facility] Comment on above: Performed By: #### 2 [id number] #### [facility] [address] [place] [address] Sodium [Moles/Vol] 135 mmol/L Normal 135-145 [facility] Comment on above: Performed By: #### 2 [id number] #### [facility] [address] [place] [address] Urea nitrogen [Mass/Vol] 26 mg/dL High 5-21 [facility] Comment on above: Performed By: #### 2 [id number] #### [facility] [address] [place] [address] Urea nitrogen/Creatinine [Mass ratio] 26 No Units High 10-20 [facility] Comment on above: Performed By: #### 2 [id number] #### [facility] [address] [place] [address] CBC w/ Auto Diffon 5 Basophils/100 WBC (Bld) 1.3 % Normal 0.0-2.0 [facility] Comment on above: Performed By: #### 2 [id number] #### [facility] [address] [place] [address] Basophils/Leukocytes Auto (Bld) [Pure # fraction] 0.1 E9/L Normal 0.0-0.2 [facility] Comment on above: Performed By: #### 2 [id number] #### [facility] [address] [place] [address] Eosinophils (Bld) [#/Vol] 0.3 E9/L Normal 0.0-0.5 [facility] Comment on above: Performed By: #### 2 [id number] #### [facility] [address] [place] [address] Eosinophils/100 WBC (Bld) 3.4 % Normal 0.0-8.0 [facility] Comment on above: Performed By: #### 2 [id number] #### [facility] [address] [place] [address] Erythrocyte distribution width (RBC) [Ratio] 21.7 % High 10.9-14.2 [facility] Comment on above: Performed By: #### 2 [id number] #### [facility] [address] [place] [address] Performed By: #### 2 [id number] #### [facility] [address] [place] [address] Hematocrit (Bld) [Volume fraction] 35.0 % Normal 34.0-46.0 [facility] [facility] Comment on above: Performed By: #### 2 [id number] #### [facility] [address] [place] [address] 20175 Performed By: #### 2 [id number] #### [facility] [address] [place] [address] 91043 Hemoglobin (Bld) [Mass/Vol] 11.8 g/dL Low 12.0-16.0 [facility] Comment on above: Performed By: #### 2 [id number] #### [facility] [address] [place] [address] 40171 Performed By: #### 2 [id number] #### [facility] [address] [place] [address] 77446 Lymphocytes (Bld) [#/Vol] 1.2 E9/L Normal 1.0-4.0 [facility] Comment on above: Performed By: #### 2 [id number] #### [facility] [address] [place] [address] 77590 Lymphocytes/100 WBC (Bld) 14.8 % Normal 14.0-50.0 [facility] Comment on above: Performed By: #### 2 [id number] #### [facility] [address] [place] [address] 50270 MCH (RBC) [Entitic mass] 31.9 pg Normal 27.0-34.0 [facility] Comment on above: Performed By: #### 2 [id number] #### [facility] [address] [place] [address] 51758 Performed By: #### 2 [id number] #### [facility] [address] [place] [address] 72518 MCHC (RBC) [Mass/Vol] 33.7 g/dL Normal 31.4-36.0 [facility] Comment on above: Performed By: #### 2 [id number] #### [facility] [address] [place] [address] 82896 Performed By: #### 2 [id number] #### [facility] [address] [place] [address] MCV (RBC) [Entitic vol] 94.9 fL Normal 80.0-100.[address] [facility] Comment on above: Performed By: #### 2 [id number] #### [facility] [address] [place] [address] 75733 Performed By: #### 2 [id number] #### [facility] [address] [place] [address] 39993 Monocytes (Bld) [#/Vol] 1.3 E9/L High 0.2-1.[address] [facility] Comment on above: Performed By: #### 2 [id number] #### [facility] [address] [place] [address] 73803 Neutrophils (Bld) [#/Vol] 5.5 E9/L Normal 2.0-7.5 [facility] Comment on above: Performed By: #### 2 [id number] #### [facility] [address] [place] [address] 30712 Neutrophils/100 WBC (Bld) 65.5 % Normal 36.0-75.0 [facility] Comment on above: Performed By: #### 2 [id number] #### [facility] [address] [place] [address] Platelet 269.0 E9/L Normal 150.0-500.0 [facility] Comment on above: Performed By: #### 2 [id number] #### [facility] [address] [place] [address] 21450 Performed By: #### 2 [id number] #### [facility] [address] [place] [address] 19904 Platelet mean volume (Bld) [Entitic vol] 7.7 fL Normal 6.4-10.8 [facility] Comment on above: Performed By: #### 2 [id number] #### [facility] [address] [place] [address] 18909 Performed By: #### 2 [id number] #### [facility] [address] [place] [address] RBC (Bld) [#/Vol] 3.7 E12/L Low 4.3-5.9 [facility] Comment on above: Performed By: #### 2 [id number] #### [facility] [address] [place] [address] 30227 Performed By: #### 2 [id number] #### [facility] [address] [place] [address] 68591 WBC corrected for nucl RBC Auto (Bld) [#/Vol] 8.3 E9/L Normal 4.0-11.0 [facility] Comment on above: Performed By: #### 2 [id number] #### [facility] [address] [place] [address] 46210 Performed By: #### 2 [id number] #### [facility] [address] [place] [address] 04120 CHEMISTRYOrdered By: Lab ROP User on 07-08-2024 Glucose [Mass/Vol] 225 mg/dL High 55 - 99 mg/dL [facility] POC Subsection Comment on above: Result Comment: Karen allison RN/ POC Username JAMAL PATINO Invalid Interpretation Code [facility] POC Subsection Sodium [Moles/Vol] [id number] mmol/L Invalid Interpretation Code [facility] POC Subsection Sodium [Moles/Vol] 735607348 mmol/L Invalid Interpretation Code [facility] POC Subsection CHEMISTRYOrdered By: SYSTEM SYSTEM on 07-08-2024 Anion gap [Moles/Vol] 10 mmol/L Normal 6 - 16 mEq/L R emisol Chem Calcium [Mass/Vol] 9.8 mg/dL Normal 8.9 - 11. 1 mg/dL Remisol Chem Chloride [Moles/Vol] 101 mmol/L Normal 101 - 1 11 mmol/L Remisol Chem CO2 [Moles/Vol] 28 mmol/L Normal 21 - 31 mmol/L Remisol Chem Creatinine [Mass/Vol] 1.0 mg/dL Normal 0.5 - 1.3 mg/dL Remisol Chem eGFR 60 mL/min/1.73 m2 Normal >=59mL/min /1. 73 m2 Remisol Chem Glucose [Mass/Vol] 162 mg/dL Normal 55 - 199 mg/dL Remisol Chem Magnesium [Mass/Vol] 2.2 mg/dL Normal 1.3 - 2 .4 mg/dL Remisol Chem Potassium [Moles/Vol] 4.0 mmol/L Normal 3.5 - 5.3 mmol/L Remisol Chem Sodium [Moles/Vol] 135 mmol/L Normal 135 - 145 mmol/[place] [address].90 pg/mL Invalid Interpretation Code 10.10 - 27.10 pg/mL Remisol Chem Comment on above: Result Comment: Crit ical Result Verified by Repeat Analysis Critical Result [id number]:[id number] Called to and read back by: ROGELIO NORRIS at: 07/08/2024 07:01:01 by:CELSO Interpretive Data: T he 95% CI (Confidence Interval) PPV (Positive Predictive Value) for myocardial infarction in females is 38 pg/mL, in males 51 pg/mL. The results should be used in conjunction with clinical conditions of myocardial infarction. (Access High Sensitivity Troponin I Instructions For Use, Ramandeep Hooper, January 2018) Urea nitrogen [Mass/Vol] 26 mg/dL High 5 - 21 mg/dL Remisol Chem Urea nitrogen/Creatinine [Mass ratio] 26 mg/mg High 10 - 20 Remisol Chem Capillary Glucose POCon 06-11 Glucose [Mass/Vol] 225 mg/dL High 55-99 [facility] Comment on above: Result Comment: Karen CHEN Performed By: #### 2 [id number] #### [facility] [address] [place] [address] Glucose [Mass/Vol] 97 mg/dL Normal 55-99 [facility] Comment on above: Result Comment: Karen CHEN Performed By: #### 2 [id number] #### [facility] [address] [place] [address] Glucose [Mass/Vol] 172 mg/dL High 55-99 [facility] Comment on above: Result Comment: Karen allison RN/ Performed By: #### 2 [id number] #### [facility] [address] [place] [address] Glucose [Mass/Vol] 125 mg/dL High 55-99 [facility] Comment on above: Result Comment: Karen CHEN Performed By: #### 2 [id number] #### [facility] [address] [place] [address] Coding Queryon 07-08-2024 Coding Query Coding Query From: Gretchen Funez RN To: Selvin Yeh DO; Sent: [...] particular answer is desired or expected. Thank you![email or web address] [phone] Normal [facility] HEMATOLOGYOrdered By: SYSTEM SYSTEM on 07-08-2024 Basophils/100 WBC (Bld) 1.3 % Normal 0.0 - 2.0 % Remisol Heme Basophils/Leukocytes Auto (Bld) [Pure # fraction] 0.1 E9/L Normal 0.0 - 0.2 E9/L Remisol Heme Eosinophils (Bld) [#/Vol] 0.3 E9/L Normal 0.0 - 0.5 E9/L Remisol Heme Eosinophils/100 WBC (Bld) 3.4 % Normal 0.0 - 8.0 % Remisol Heme Lymphocytes (Bld) [#/Vol] 1.2 E9/L Normal 1.0 - 4.0 E9/L Remisol Heme Lymphocytes/100 WBC (Bld) 14.8 % Normal 14.0 - 50.0 % Remisol Heme Monocytes (Bld) [#/Vol] 1.3 E9/L High 0.2 - 1.0 E9/L Remisol Heme Monocytes/100 WBC (Bld) 15.0 % High 4.0 - 14.0 % Remisol Heme Neutrophils (Bld) [#/Vol] 5.5 E9/L Normal 2.0 - 7.5 E9/L Rem[facility] Heme Neutrophils/100 WBC (Bld) 65.5 % Normal 36.0 - 75.0 % Remisol Heme Interdisciplinary Note - Shiraz e Manageron 07-08-2024 Interdisciplinary Note - Slip Mixer Interdisciplinary Note - Slip Mixer Patient is awake and alert in bed, previously rounded with Dr. Yeh. Patient is from [facility] and plan to returrn at [place]. Pt is aware of plan to move out of ICU today and likely plan to DC back to facility tomorrow. Inpatient status reviewed, Medicare rights reviewed, form signed and original provided . CRM following. PCP verified and insurance information reviewed and DME discussed. Contact information provided and white board updated. Normal [facility] Comment on above: Result Comment: Elec tronically Signed By: Andrei ARGUETA, Dulce\.padmini\Date and Time Signed: 07/08/24 12:00 EST Laboratory - Hematology and Cell countsOrdered By: SYSTEM SYSTEM on 07-08-2024 Erythrocyte distribution width (RBC) [Ratio] 21.7 % High 10.9 - 14.2 % Remisol Heme Hematocrit (Bld) [Volume fraction] 35.0 % Normal 34.0 - 46.0 % Remisol Heme Hemoglobin (Bld) [Mass/Vol] 11.8 g/dL Low 12.0 - 16.0 gm/dL Rem[facility] Heme MCH (RBC) [Entitic mass] 31.9 pg Normal 27.0 - 34.0 pg Remisol Heme MCHC (RBC) [Mass/Vol] 33.7 g/dL Normal 31.4 - 36.0 gm/dL Remisol Heme MCV (RBC) [Entitic vol] 94.9 fL Normal 80.0 - 100.0 fL Rem[facility] Heme Platelet mean volume (Bld) [Entitic vol] 7.7 fL Normal 6.4 - 10.8 fL Remisol Heme RBC (Bld) [#/Vol] 3.7 E12/L Low 4.3 - 5.9 E12/L [facility] Heme WBC corrected for nucl RBC Auto (Bld) [#/Vol] 8.3 E9/L Normal 4.0 - 11.0 E9/L Rem[facility] Heme Magnesiumon 07-08-2024 Magnesium [Mass/Vol] 2.2 mg/dL Normal 1.3-2.4 [facility] Comment on above: Performed By: #### 2 [id number] #### [facility] [address] [place] [address] No Panel InformationOrdered By: SYSTEM SYSTEM on 07-08-2024 Platelet 269.0 E9/L Normal 150.0 - 500.0 E9/L Remisol Heme Troponinon 07-08-2024 [place] [address].90 pg/mL Abnormal 10.10-27.10 [facility] Comment on above: Result Comment: Crit ical Result Verified by Repeat Analysis Critical Result [id number] Called to and read back by: ROGELIO NORRIS at: 07/08/2024 07:01:01 by:CELSO The 95% CI (Confidence Interval) PPV (Positive Predictive Value) for myocardial infarction in females is 38 pg/mL, in males 51 pg/mL. The results should be used in conjunction with clinical conditions of myocardial infarction. (Access High Sensitivity Troponin I Instructions For Use, Ramandeep Fabiola, January 2018) Performed By: #### 2 [id number] #### [facility] [address] [place] [address] XR Chest Single Viewon 07-08 XR Chest Single View Exam Date/Time: 07/07/2024 18:15 EST Reason for Exam: Chest pain Report IMPRESSION: Possible left pleural effusion. EXAMINATION/TECHNIQUE : XR Chest Single View HISTORY: Recent heart catheterization. Chest pain. COMPARISON: None RESULT: Possible small left pleural effusion versus prominent pericardial fat pad. No distinct focal consolidation. No right pleural effusion. No pneumothorax. Enlarged cardiomediastinal silhouette, accentuated by technique. Coronary stent or stents. No acute osseous findings. Degenerative changes. Surgical clips lower neck. Ordering Provider: Markos Moreno FINAL REPORT Dictated: 07/08/2024 8:03 am Abraham Foster MD Signed (Electronic Signature): 07/08/2024 8:03 am Signed by: Abraham Foster MD Transcribed by: MICHELLE Technologist: FARIBA Devine [facility] eGFRon 07-08-2024 eGFR 60 mL/min/1.73 m2 Normal >=59 [facility] Comment on above: Performed By: #### 1 [id number] #### [facility] [address] [place] [address] BMPon 07-07-2024 Anion gap [Moles/Vol] 14 mmol/L Normal 6-16 [facility] Comment on above: Performed By: #### 2 [id number] #### [facility] [address] [place] [address] Calcium [Mass/Vol] 10.1 mg/dL Normal 8.9-11.1 [facility] Comment on above: Performed By: #### 2 [id number] #### [facility] [address] [place] [address] Chloride [Moles/Vol] 99 mmol/L Low 101-111 [facility] Comment on above: Performed By: #### 2 [id number] #### [facility] [address] [place] [address] CO2 [Moles/Vol] 25 mmol/L Normal 21-31 [facility] Comment on above: Performed By: #### 2 [id number] #### [facility] [address] [place] [address] Creatinine [Mass/Vol] 1.0 mg/dL Normal 0.5-1.3 [facility] Comment on above: Performed By: #### 2 [id number] #### [facility] [address] [place] [address] Glucose [Mass/Vol] 197 mg/dL Normal 55-199 [facility] Comment on above: Performed By: #### 2 [id number] #### [facility] [address] [place] [address] Potassium [Moles/Vol] 4.2 mmol/L Normal 3.5-5.3 [facility] Comment on above: Performed By: #### 2 [id number] #### [facility] [address] [place] [address] Sodium [Moles/Vol] 134 mmol/L Low 135-145 [facility] Comment on above: Performed By: #### 2 [id number] #### [facility] [address] [place] [address] Urea nitrogen [Mass/Vol] 28 mg/dL High 5-21 [facility] Comment on above: Performed By: #### 2 [id number] #### [facility] [address] [place] [address] Urea nitrogen/Creatinine [Mass ratio] 28 No Units High 10-20 [facility] Comment on above: Performed By: #### 2 [id number] #### [facility] [address] [place] [address] BNPon 07-07-2024 Natriuretic peptide B (Bld) [Mass/Vol] 1610 pg/mL High 5-80 [facility] Comment on above: Performed By: #### 1 [id number] #### [facility] [address] [place] [address] CBC w/ Auto Diffon 5 Basophils/100 WBC (Bld) 1.2 % Normal 0.0-2.[address] [facility] Comment on above: Performed By: #### 2 [id number] #### [facility] [address] [place] [address] Basophils/Leukocytes Auto (Bld) [Pure # fraction] 0.1 E9/L Normal 0.0-0.2 [facility] Comment on above: Performed By: #### 2 [id number] #### [facility] [address] [place] [address] Eosinophils (Bld) [#/Vol] 0.4 E9/L Normal 0.0-0.5 [facility] Comment on above: Performed By: #### 2 [id number] #### [facility] [address] [place] [address] Eosinophils/100 WBC (Bld) 4.7 % Normal 0.0-8.0 [facility] Comment on above: Performed By: #### 2 [id number] #### [facility] [address] [place] [address] Erythrocyte distribution width (RBC) [Ratio] 21.7 % High 10.9-14.2 [facility] Comment on above: Performed By: #### 2 [id number] #### [facility] [address] [place] [address] Hematocrit (Bld) [Volume fraction] 37.5 % Normal 34.0-46.0 [facility] Comment on above: Performed By: #### 2 [id number] #### [facility] [address] [place] [address] Hemoglobin (Bld) [Mass/Vol] 12.4 g/dL Normal 12.0-16.0 [facility] Comment on above: Performed By: #### 2 [id number] #### [facility] [address] [place] [address] Lymphocytes (Bld) [#/Vol] 1.4 E9/L Normal 1.0-4.0 [facility] Comment on above: Performed By: #### 2 [id number] #### [facility] [address] [place] [address] Lymphocytes/100 WBC (Bld) 16.5 % Normal 14.0-50.0 [facility] Comment on above: Performed By: #### 2 [id number] #### [facility] [address] [place] [address] MCH (RBC) [Entitic mass] 31.3 pg Normal 27.0-34.0 [facility] Comment on above: Performed By: #### 2 [id number] #### [facility] [address] [place] [address] MCHC (RBC) [Mass/Vol] 33.0 g/dL Normal 31.4-36.0 [facility] Comment on above: Performed By: #### 2 [id number] #### [facility] [address] [place] [address] MCV (RBC) [Entitic vol] 95.0 fL Normal 80.0-100.[address] [facility] Comment on above: Performed By: #### 2 [id number] #### [facility] [address] [place] [address] Monocytes (Bld) [#/Vol] 1.3 E9/L High 0.2-1.[address] [facility] Comment on above: Performed By: #### 2 [id number] #### [facility] [address] [place] [address] Neutrophils (Bld) [#/Vol] 5.5 E9/L Normal 2.0-7.5 [facility] Comment on above: Performed By: #### 2 [id number] #### [facility] [address] [place] [address] Neutrophils/100 WBC (Bld) 62.6 % Normal 36.0-75.0 [facility] Comment on above: Performed By: #### 2 [id number] #### [facility] [address] [place] [address] Platelet mean volume (Bld) [Entitic vol] 7.8 fL Normal 6.4-10.8 [facility] Comment on above: Performed By: #### 2 [id number] #### [facility] [address] [place] [address] Platelets (Bld) [#/Vol] 233.0 E9/L Normal 150.0-500.0 [facility] Comment on above: Performed By: #### 2 [id number] #### [facility] [address] [place] [address] RBC (Bld) [#/Vol] 4.0 E12/L Low 4.3-5.9 [facility] Comment on above: Performed By: #### 2 [id number] #### [facility] [address] [place] [address] WBC corrected for nucl RBC Auto (Bld) [#/Vol] 8.7 E9/L Normal 4.0-11.0 [facility] Comment on above: Performed By: #### 2 [id number] #### [facility] [address] [place] [address] CHEMISTRYOrdered By: Hot Potato SYSTEM on 07-07-2024 Troponin HS 9143.50 pg/mL Invalid Interpretation Code 10.10 - 27.10 pg/mL Remisol Chem Comment on above: Result Comment: Crit ical Result [id number] Called to and read back by: MARSHALL WOODSON at: 07/07/2024 21:12:15 by:[id number] Critical Result Verified by Previous Result Interpretive Data: T he 95% CI (Confidence Interval) PPV (Positive Predictive Value) for myocardial infarction in females is 38 pg/mL, in males 51 pg/mL. The results should be used in conjunction with clinical conditions of myocardial infarction. (Access High Sensitivity Troponin I Instructions For Use, Ramandeep Hooper, January 2018) Troponin HS 8093.50 pg/mL Invalid Interpretation Code 10.10 - 27.10 pg/mL Remisol Chem Comment on above: Result Comment: Crit ical Result Verified by Previous Result Critical Result [id number] Called to and read back by: STEVE DUARTE at: 07/07/2024 19:32:50 by:[id number] Interpretive Data: T he 95% CI (Confidence Interval) PPV (Positive Predictive Value) for myocardial infarction in females is 38 pg/mL, in males 51 pg/mL. The results should be used in conjunction with clinical conditions of myocardial infarction. (Access High Sensitivity Troponin I Instructions For Use, Ramandeep Fabiola, January 2018) Anion gap [Moles/Vol] 14 mmol/L Normal 6 - 16 mEq/L R emisol Chem Calcium [Mass/Vol] 10.1 mg/dL Normal 8.9 - 11. 1 mg/dL Remisol Chem Chloride [Moles/Vol] 99 mmol/L Low 101 - 1 11 mmol/L Remisol Chem CO2 [Moles/Vol] 25 mmol/L Normal 21 - 31 mmol/L Remisol Chem Creatinine [Mass/Vol] 1.0 mg/dL Normal 0.5 - 1.3 mg/dL Remisol Chem eGFR 60 mL/min/1.73 m2 Normal >=59mL/min /1. 73 m2 Remisol Chem Glucose [Mass/Vol] 197 mg/dL Normal 55 - 199 mg/dL Remisol Chem Magnesium [Mass/Vol] 2.1 mg/dL Normal 1.3 - 2 .4 mg/dL Remisol Chem Potassium [Moles/Vol] 4.2 mmol/L Normal 3.5 - 5.3 mmol/L Remisol Chem Sodium [Moles/Vol] 134 mmol/L Low 135 - 145 mmol/L Remisol Chem Urea nitrogen [Mass/Vol] 28 mg/dL High 5 - 21 mg/dL Remisol Chem Urea nitrogen/Creatinine [Mass ratio] 28 mg/mg High 10 - 20 Remisol Chem CHEMISTRYOrdered By: Herminia Ramirez on 07-07-2024 Natriuretic peptide B (Bld) [Mass/Vol] 1610 pg/mL High 5 - 80 pg/mL [facility] COAGULATIONOrdered By: Roni Ramirez on 07-07-2024 aPTT Coag (PPP) [Time] 34.9 s Normal 25.1 - 36.5 second(s) [facility] Auto Coag Comment on above: Interpretive Data: P arameter 15 days - 4 weeks 1 - 5 months 6 - 11 months 1 - 5 years 6 - 10 years 11 - 17 years PTT Mean: 35.4 (27.6-45.6) Mean: 33.5 (24.8-40.7) Mean: 32.4 (25.1-40.7) Mean: 31.6 (24.0-39.2) Mean: 31.6 (26.9-38.7) Mean: 31.0 (24.6-38.4) Pediatric Reference ranges were obtained from a study by justine Padgett alLeo prepared from 1437 samples obtained at 7 different centers using the same coagulation reagent and instrumentation as [facility]. Currently there are no coagulation studies available worldwide for children to 14 days, and no normal ranges. Heparin therapeutic range (represented by Anti-Factor Xa activity of 0.2 - 0.4 U/mL) corresponds to PTT of 56.6 - 109.0 sec. INR Coag (PPP) [Relative time] 1.48 {INR} Invalid Interpretation Code [facility] Auto Coag Comment on above: Interpretive Data: I NR results are specifically intended to assess patients stabilized on long-term Anticoagulation therapy suggested INR s Less Intensive Anticoagulation 2.0 3.0 Conventional Range 3.0 4.5 PT Coag (PPP) [Time] 16.6 s High 9.4 - 1 2.5 second(s) [facility] Auto Coag Comment on above: Interpretive Data: 1 5 days - 4 weeks 1 - 5 months 6 -11 months 1-5 years 6-10 years 11 -17 years Mean: 11.2 (9.5-12.6) Mean: 11.0 (9.7-12.8) Mean: 11.0 (9.8-13.0) Mean: 11.3 (9.9-13.4) Mean: 11.7 (10.0-14.6) Mean: 11.8 (10.0 - 14.1) Pediatric Reference ranges were obtained from a study by justine Padgett alLeo prepared from 1437 samples obtained at 7 different centers using the same coagulation reagent and instrumentation as [facility]. Currently there are no coagulation studies available worldwide for children to 14 days, and no normal ranges. Capillary Glucose POCon 06-10 Glucose [Mass/Vol] 146 mg/dL High 55-99 [facility] Comment on above: Result Comment: Karen CHEN Performed By: #### 2 [id number] #### [facility] [address] [place] [address] Glucose [Mass/Vol] 148 mg/dL High 55-99 [facility] Comment on above: Result Comment: Karen CHEN Performed By: #### 2 [id number] #### [facility] [address] [place] [address] ED Clinical Summaryon 2024 ED Clinical Summary ED Clinical Summary [address] [address] ED Clinical Summary Person Information Name: LAURA LAWSON [facility] Age: 73 Years : 1950 Sex: Female Language: Hungarian PCP: CARLOS JOSHI MD Marital Status: Single Phone: [phone] Visit Id: Visit Reason: Chest pain; CHEST [...] 15:49:38 Patient Care Request 07/07/2024 15:49:38 ADDRESS: [place] [phone] PHYS DOC NOTES: MEDICAL INFORMATION: Prescriptions Given: PATIENT EDUCATION INFORMATION: Instructions: Follow up: DIAGNOSIS: 1:STEMI (ST elevation myocardial infarction) Normal [facility] ED Note-Nursingon 07-07-2024 ED Note-Nursing ED Note-Nursing Stemi alert called on pt at 1517. pt made aware of the changes to her ecg by both dr moreno and dr hutson. Both doctors told the pt that she was having a heart attack and that she was in need of emergent intervention via laborer driver due to the imminent danger to her life. pt made aware that she could without immediate intervention. pt states I know, I just don't care. I want to see my heart doctor in [place]. staff reinforced and reiterated to the patient that there was an increased chance of with waiting. pt stated I understand, I want to go to [place] to see my heart doctor . transport to [place] to be arranged. Pt's friend allowed back to the room. pt and her friend began to talk. this rn in room to start administering medications. pt informed that she has been accepted by her wet process miller head in [place] and that transport by helicopter would be [...] we want you to go to the laborer driver here is because every minute that you wait to be treated is more damage being done to your heart. the more damage done to your heart, the more the risk of is. Do you want your cath here or in [place] . pt states I'll do it here, you can cancel the helicopter . laborer driver notified and pt taken to laborer driver. Normal [facility] ED Note-Physicianon 07-07-19 ED Note-Physician ED Note-Physician Basic Information Time Seen: Tiffanie MorenoMarkos 07/07/2024 14:57 Chief Complaint chest pain that [...] labored, breath sounds equal Chest wall: no deformity,notendernes s Gastrointestinal: soft, non distended, no tenderness, no guarding Extremities: no deformity, no trauma Neurological: Alert and oriented, speech normal, no focal neuro deficits Psychiatric: cooperative, affect appropriate for age Medical Decision Making MEDICAL DECISION MAKING Number and Complexity of Problems Differential Diagnosis: [] [facility] Data External documents reviewed: [] My [...] cardiology who does not see any inferior WI other than left bundle branch block. The [...] emergency room to take patient to the X Ray Developer at the patient refused to go to the X Ray Developer here. She states she wants to go to [facility] where her wet process miller head is. The patient is alert and oriented. She is capable of making decision. We explained to the patient that this is a heart attack and she can from it. The patient understood and verbalized that yes she can and she still wanted to go to [place]. At this time Dr. Montana recommend starting [...] room and took the patient to the X Ray Developer. Upon arrival her blood pressure was soft on the 90s. It dropped to 80s. Patient was given 500 mL of normal saline. The patient is taken to the X Ray Developer. The hospitalist was notified. Shared decision making: [...] monitoring. Assessment/Plan 1. STEMI (ST elevation myocardial (more content not included)... Normal [facility] Comment on above: Result Comment: Elec tronically Signed By: Markos Moreno M.D.\.br\Date and Time Signed: 07/07/24 17:19 EST ED Patient Education Noteon 07-07-2024 ED Patient Education Note ED Patient Education Note Normal [facility] ED Patient Summaryon 025 ED Patient Summary ED Patient Summary [place] [address] Patient Discharge Instructions Person Information Name: LAURA LAWSON Age: 73 Years Arrival Date: 07/07/2024 14:52:26 Discharge Diagnosis: 1:STEMI (ST elevation myocardial infarction) Primary Care Physician: CARLOS JOSHI MD Provider Information Primary Provider: Markos Moreno M.D. Advanced Curve Cleaner:None The exam and treatment you received in the Emergency Department were for an urgent problem and are not intended as complete care. It is important that you follow up with a doctor, nurse practitioner, or physician???s dental assistant instructor for ongoing care. If your symptoms become [...] opioids can be used to help relieve jksfddfr-pl-gmmzwh pain and are often prescribed following a [...] guidance from the Food and Drug Administration (www.fda.gov/Drugs/Re sourcesForYou). ??? Visit www.cdc.gov/drugoverd ose to learn about the risks of opioids abuse and overdose. ??? If you believe you may be struggling with addiction, tell your health interior plant caretaker and ask for guidance or call [facility]???S National Helpline at 2-371-368-FYHY. v Source: Department of Health and Human Services/[place] (more content not included)... Normal [facility] HEMATOLOGYOrdered By: SYSTEM SYSTEM on 07-07-2024 Basophils/100 WBC (Bld) 1.2 % Normal 0.0 - 2.0 % Remisol Heme Basophils/Leukocytes Auto (Bld) [Pure # fraction] 0.1 E9/L Normal 0.0 - 0.2 E9/L Remisol Heme Eosinophils (Bld) [#/Vol] 0.4 E9/L Normal 0.0 - 0.5 E9/L Remisol Heme Eosinophils/100 WBC (Bld) 4.7 % Normal 0.0 - 8.0 % Remisol Heme Lymphocytes (Bld) [#/Vol] 1.4 E9/L Normal 1.0 - 4.0 E9/L Remisol Heme Lymphocytes/100 WBC (Bld) 16.5 % Normal 14.0 - 50.0 % Remisol Heme Monocytes (Bld) [#/Vol] 1.3 E9/L High 0.2 - 1.0 E9/L Remisol Heme Monocytes/100 WBC (Bld) 15.0 % High 4.0 - 14.0 % Remisol Heme Neutrophils (Bld) [#/Vol] 5.5 E9/L Normal 2.0 - 7.5 E9/L Remisol Heme Neutrophils/100 WBC (Bld) 62.6 % Normal 36.0 - 75.0 % Remisol Heme Inpatient Clinical Summaryon 07-07-2024 Inpatient Clinical Summary Inpatient Clinical Summary [address] [address] Clinical Summary Person Information: Name: LAURA LAWSON Age: 73 Years : 1950 Sex: Female PCP: CARLOS JOSHI MD Marital Status: Single Phone: [phone] Race: White Ethnicity: Non- or Language: Hungarian Visit Id: Visit Reason: Chest pain; CHEST PAIN Speciality: Acuity: Enc Type: Inpatient Med Service: Medical Arrival: 07/07/2024 14:52:26 Discharge: Dispo Type: Address: [address] [place] [id number] Provider Notes: Diagnosis: 1:STEMI (ST elevation myocardial [...] CV - Cardiovascular PCI Discharge Instructions (Custom) [facility] Inpatient Patient Summaryon 07-07-2024 Inpatient Patient Summary Inpatient Patient Summary [address] [id number] Patient Discharge Instructions PERSON INFORMATION Name: LAURA [...] nearby participating provider. Comment: LULU Michelle GERALDINE William, have received the attached patient education materials/instruction s and have verbalized understanding: Patient Signature Date Clinican/Nurse Signature Date HERE ARE THE MEDICATION CHANGES THAT OCCURRED DURING YOUR HOSPITAL STAY Comment: MEDICATION LIST PROVIDED FOR YOU IS A LIST OF YOUR CURRENT MEDICATIONS. PLEASE CARRY THIS WITH YOU AT ALL TIMES. No Medications Documented Pharmacy Information: Comment: PATIENT EDUCATION INFORMATION Instructions: [place] Cardiovascular PCI DISCHARGE INSTRUCTIONS Diet: ??? [...] for any reason without talking to your wet process miller head Site Care: ??? Do not remove dressing [...] you are interested in smoking cessation, contact [facility] at [phone], ext. [phone]. ??? In the event you are unable to reach your physician, please call Liz at [phone] and the powder mill operator will assist you. Seek Medicare Care [...] You may receive a survey from [email or web address] asking you to rate your care experience. Your feedback is important and will help us understand what we do well and how we can improve the quality of care we provide to you, your loved ones and our community. It???s an honor to serve you. (more content not included)... Normal [facility] Magnesiumon 07-07-2024 Magnesium [Mass/Vol] 2.1 mg/dL Normal 1.3-2.4 [facility] Comment on above: Performed By: #### 2 [id number] #### [facility] Laboratory [address] [place] [address] Operative Reporton Operative Report Operative Report Indication for Surgery Acute anterolateral [...] the chart. Patient was brought to the laborer driver and prepped and draped in usual sterile [...] 12 NC balloons inflated up to 20 kan. A 3 x 18 mm Xience jazzmine point drug-eluting stent was deployed at 14 kan which was subsequently postdilated with a 3 x 12 mm NC balloon up to 24 kan. Preangioplasty stenosis-99% Postangioplasty stenosis-0% Preangioplasty LUIS flow-2 [...] once ACT was less than 180 seconds. Normal [facility] Comment on above: Result Comment: Elec tronically Signed By: Luigi Montana MD\.padmini\Date and Time Signed: 07/07/24 17:12 EST PT & PTTon 07-07-2024 aPTT Coag (PPP) [Time] 34.9 second(s) Normal 25.1-36.5 [facility] Comment on above: Result Comment: Para meter 15 days - 4 weeks 1 - [...] the same coagulation reagent and instrumentation as [facility]. Currently there are no coagulation studies available worldwide for children to 14 days, and no normal ranges. Heparin therapeutic range (represented by Anti-Factor Xa activity of 0.2 - 0.4 U/mL) corresponds to PTT of 56.6 - 109.0 sec. Performed By: #### 1 [id number] #### [facility] [address] [place] [address] INR Coag (PPP) [Relative time] 1.48 {INR} Invalid Interpretation Code [facility] Comment on above: Result Comment: INR results are specifically intended to assess patients stabilized on long-term Anticoagulation therapy suggested INR???s ???Less Intensive Anticoagulation??? 2.0 ??? 3.0 Conventional Range 3.0 ??? 4.5 Performed By: #### 1 [id number] #### [facility] [address] [place] [address] PT Coag (PPP) [Time] 16.6 second(s) High 9.4-12.5 [facility] Comment on above: Result Comment: 15 d ays - 4 weeks 1 - 5 months [...] the same coagulation reagent and instrumentation as [facility]. Currently there are no coagulation studies available worldwide for children to 14 days, and no normal ranges. Performed By: #### 1 [id number] #### [facility] [address] [place] [address] Pre-Arrival Noteon Pre-Arrival Note Pre-Arrival Note Pre-Arrival Summary Name: , Current Date: 07/07/2024 14:52:49 EST Gender: Female Date of : Age: 73 Pre-Arrival Type: EMS ETA: 07/07/2024 15:18:00 EST Primary Care Physician: Presenting Problem: hypotensive chest pain Pre-Arrival User: Corinne Ross RN Referring Source: Location: [place] Completion Date/Time: 07/07/2024 14:48:00 [facility] Emergency Department Pre-Hospital Report Form Vital Signs: Pre-Hospital Report: Treatment in Route: Response to Treatment: Misc. Issues: Normal [facility] Troponin 0 Hr.on 07-07-2024 Troponin HS 2724.80 pg/mL Abnormal 10.10-27.10 [facility] Comment on above: Result Comment: Crit ical Result Verified by Repeat Analysis Critical Result I_TnIHS:2724.8 Called to and read back by: ANNI WEINER at: 07/07/2024 16:26:13 by:[email or web address] The 95% CI (Confidence Interval) PPV (Positive Predictive Value) for myocardial infarction in females is 38 pg/mL, in males 51 pg/mL. The results should be used in conjunction with clinical conditions of myocardial infarction. (Access High Sensitivity Troponin I Instructions For Use, Ramandeep Hooper, January 2018) Performed By: #### 1 [id number] #### [facility] [address] [place] [address] Troponin 3 Hr.on 07-07-2024 Troponin HS 8093.50 pg/mL Abnormal 10.10-27.10 [facility] Comment on above: Result Comment: Crit ical Result Verified by Previous Result Critical Result I_TnIHS:8093.5 Called to and read back by: STEVE DUARTE at: 07/07/2024 19:32:50 by:[id number] The 95% CI (Confidence Interval) PPV (Positive Predictive Value) for myocardial infarction in females is 38 pg/mL, in males 51 pg/mL. The results should be used in conjunction with clinical conditions of myocardial infarction. (Access High Sensitivity Troponin I Instructions For Use, [employer], January 2018) Performed By: #### 1 [id number] #### [facility] [address] [place] [address] Troponin 6 Hr.on 07-07-2024 Troponin HS 9143.50 pg/mL Abnormal 10.10-27.10 [facility] Comment on above: Result Comment: Crit ical Result I_TnIHS:9143.5 Called to and read back by: MARSHALL WOODSON at: 07/07/2024 21:12:15 by:[email or web address] Critical Result Verified by Previous Result The 95% CI (Confidence Interval) PPV (Positive Predictive Value) for myocardial infarction in females is 38 pg/mL, in males 51 pg/mL. The results should be used in conjunction with clinical conditions of myocardial infarction. (Access High Sensitivity Troponin I Instructions For Use, [employer], January 2018) Performed By: #### 1 [id number] #### [facility] [address] [place] [address] eGFRon 07-07-2024 eGFR 60 mL/min/1.73 m2 Normal >=59 [facility] Comment on above: Performed By: #### 1 [id number] #### [facility] [address] [place] [address] 36on 06-17-2024 36 Digna from [facility] Cardi c Rehab made aware. [facility] 36 Thanks! Yes, she can resume cardiac rehab but looks like she will be getting PT/OT at the facility for weakness and likely can't do both but rehab can look into this. Thanks! [facility] 36on 06-16-2024 36 Looks like she was just discharged from [facility] yesterday for fall and UTI. I will upload records right now. [facility] 36 Patient LVM for clinic with questions regarding Ozempic. Patient currently admitted to [facility] s/p recent hospitalization. Nurse at facility stated that patient was on Trulicity and Ozempic during hospitalization. Per last follow-up, patient was to discontinue Trulicity and switch to Ozempic. Confirmed patient is on only 1 GLP1RA at facility; pt to continue on Trulicity 3mg once weekly and stop Ozempic. Chart updated. Campbell Kay, PharmD Cardiology Outpatient Clinical Pharmacist 06/16/24 [facility] 36 She was recently in the hospital but I'm not sure what for. Can we get those records? [facility] 36 [facility] Cardiac Rehab just received an order for cardiac rehab on this patient but it's dated for Apr 2024. Can she resume? [facility] Telephoneon 06-16-2024 Telephone [id number] Laura Lawson 1950 F Date Provider Department Center 06/16/2024 53774-ECZZCAMPBELL AMBROSIO HVCANTICOAG [facility] Family History Problem Relation Age of Onset JABARI disease Mother Heart attack Father Family Status - Relation Status Age at Mother Father [facility] Urine Cultureon 06-13-2024 Bacteria identified Cx Nom (U) ORGANISM: Escherichia coli (MDRO) (O:ESCCOLMDRO) [place] Count >100,000 ORGANISM: Escherichia coli (MDRO) (O:ESCCOLMDRO) [place] Count >100,000 * This is a corrected result. * A prior result that was reported as final has been changed. Organism identifications changed from E. coli to E.coli MDRO Aerobic HAL Charge (NMIC56) ---- SUSCEPTIBILITY --- ORGANISM: O:ESCCOLMDRO ANTIBIOTIC INTERPRETATION HAL Amikacin I 32 Amoxacillin/K Clavulanate I 1616/8 Ampicillin R >16 Ampicillin/Sulbactam R >16 Aztreonam S <4 Cefazolin I 16 Cefepime S <2 Ceftazidime S <1 Ceftazidime/Avibactam S <4 Ceftolozane/Tazobacta m S <2 Ceftriaxone S <1 Cefuroxime S <4 Ciprofloxacin R >2 Ertapenem S <0.5 Gentamicin S <2 Levofloxacin R >4 Meropenem S <1 Meropenem/Vaborbactam S <2 Nitrofurantoin S <32 Piperacillin/Tazobact am S <8 Tetracycline R >8 Tigecycline S <2 Tobramycin S <2 Trimethoprim/Sulfamet hoxazole S <0.5 Aerobic HAL Charge (NMIC56) ---- SUSCEPTIBILITY --- ORGANISM: O:ESCCOLMDRO ANTIBIOTIC INTERPRETATION HAL Amikacin S <16 Amoxacillin/K Clavulanate I 1616/8 Ampicillin R >16 Ampicillin/Sulbactam R >16 Aztreonam S <4 Cefazolin I 16 Cefepime S <2 Ceftazidime S <1 Ceftazidime/Avibactam S <4 Ceftolozane/Tazobacta m S <2 Ceftriaxone S <1 Cefuroxime S 8 Ciprofloxacin R >2 Ertapenem S <0.5 Gentamicin S <2 Levofloxacin R >4 Meropenem S <1 Meropenem/Vaborbactam S <2 Nitrofurantoin S <32 Piperacillin/Tazobact am S <8 Tetracycline R >8 Tigecycline S <2 Tobramycin S <2 Trimethoprim/Sulfamet hoxazole S <0.5 S = SUSCEPTIBLE I = [...] RESISTANT TO ALL B-LACTAM DRUGS. PERFORMED BY: [facility] [address] [place] [address] PATHOLOGIST CLUTCH ASSEMBLER NIMISHA PALACIO M.D. Normal [facility] Comment on above: Performed By: #### C UU #### [address] 36on 06-08-2024 36 There is no message Normal [facility] Urinalysis macro (dipstick) panel (U)on 05-12-2024 Bilirubin, UA Negative Negative - 4(70) +++ mg/dL [facility] Blood, UA Positive Negative - 50 Tashi/mcL [facility] Glucose, UA Negative Negative - 2000(110) ++++ mg/dL [facility] Interpretation and review of laboratory results Abnormal [facility] Ketones, UA Negative Negative - 160(16) ++++ mg/dL [facility] Leukocytes, UA Moderate Negative - 500+++ Braulio/mcL [facility] Nitrite, UA Positive Negative - Positive [facility] pH, UA 5 5 - 9 [facility] Protein, UA Negative Negative - 2000(20) ++++ mg/dL [facility] Spec Grav, UA 1.01 1 - 1.03 [facility] Urobilinogen, UA 1.0 0.2 - 12 mg/dL [facility] Telephone Visiton 05-03-2024 Telephone Visit [id number] Laura Lawson 1950 F Date Provider Department Center 05/03/2024 55022-UYCECAMPBELL PEUNTE [facility]VCANTICOAG [facility] Family History Problem Relation Age of Onset JABARI disease Mother Heart attack Father Family Status - Relation Status Age at Mother Father Reason for Visit and Comments: PharmD Cardiology Consult [Other] Normal [facility] Documentationon 04-28-2024 Documentation [id number] Laura Lawson A 1950 F Date Provider Department Center 04/28/2024 52438-BHVQCAMPBELL KAY HVCANTICOAG [facility] Family History Problem Relation Age of Onset JABARI disease Mother Heart attack Father Family Status - Relation Status Age at Mother Father Reason for Visit and Comments: PharmD Cardiology Consult [Other] [facility] 37on 04-27-2024 37 *Reduce metoprolol succinate to 1 tablet (50mg) daily. [facility] Follow-Upon 04-27-2024 Follow-Up [id number] Laura Lawson A 1950 F Date Provider Department Center 04/27/2024 166-[facility]IRAJ [facility] Family History Problem Relation Age of Onset JABARI disease Mother Heart attack Father Family Status - Relation Status Age at Mother Father Level of Service:[id number] [place] OFFICE/OUTPATIENT ESTABLISHED MOD MDM 30 MIN Reason for Visit and Comments: Congestive Heart Failure [127] Coronary Artery Disease [187] Hypertension [[id number]] [facility] 36on 04-23-2024 36 Attempted a call cathi k but there was no answer,. [facility] 36 Discharge date: 04/22/24 Call date: 04/23/24 Spoke with: patient HF Follow-up date: 04/27/24 Med reconciliation: pt declined Questions/Concerns: Pt declined to review home meds, but did confirm med changes. Pt is feeling better and denied any CP, but has slight SOB with exertion. Pt encouraged to monitor daily wt and BP. Pt wanted to know which OTC cough meds to take and requested sheet writer ask the follow up provider. Restaurant Area Manager reached out and is awaiting a response. Pt is aware of her follow up appt and has transportation to this appt. No other questions or concerns at this time. [facility] Documentationon 04-23-2024 Documentation [id number] Laura Lawson A 1950 F Date Provider Department Center 04/23/2024 57379-FAOYQVXRUDDY BASS C [facility] Family History Problem Relation Age of Onset JABARI disease Mother Heart attack Father Family Status - Relation Status Age at Mother Father Reason for Visit and Comments: HF inpatient satisfaction survey sent. [Other] Normal [facility] Telephoneon 04-23-2024 Telephone [id number] Laura Lawson 1950 F Date Provider Department Center 04/23/2024 1599-DANA CURRY [facility] Family History Problem Relation Age of Onset JABARI disease Mother Heart attack Father Family Status - Relation Status Age at Mother Father Reason for Visit and Comments: post hospital call back [Other] Normal [facility] Telephone [id number] Laura Lawson A 1950 F Date Provider Department Center 04/23/2024 40428-QIKRVUHRUDDY BASS [facility] Family History Problem Relation Age of Onset JABARI disease Mother Heart attack Father Family Status - Relation Status Age at Mother Father Reason for Visit and Comments: HF post discharge call [Other] [facility] 30on 04-22-2024 30 The patient is Moderately Stable - [...] injury Outcome: Adequate for Discharge Flowsheets (Taken 04/22/2024 08) Free from fall injury: Assess patient frequently for physical needs Problem: Discharge Planning Goal: Discharge to home or other facility with appropriate resources Outcome: Adequate for Discharge Flowsheets (Taken 04/22/2024 08) Discharge to home or other facility with appropriate resources: Identify barriers to discharge with patient and caregiver Problem: Chronic Conditions and Co-morbidities Goal: Patient's chronic conditions and co-morbidity symptoms are monitored and maintained or improved Outcome: Adequate for Discharge Flowsheets (Taken 04/22/2024 08) Care Plan - Patient's Chronic Conditions and [...] Outcome: Adequate for Discharge Flowsheets (Taken 04/22/2024799) Skin integrity remains intact: Monitor for areas of redness and/or skin breakdown Goal: Incisions, wounds, or drain sites healing without S/S of infection Outcome: Adequate for Discharge Flowsheets (Taken 04/22/2024799) Incisions, wounds, or drain sites healing without [...] signs and symptoms of bleeding or hemorrhage Normal [facility] CBC WITH AUTO DIFFERENTIALon 04-22-2024 Erythrocyte distribution width (RBC) [Ratio] 16.6 % High 11.5-15.0 [facility] Comment on above: Performed By: #### L [id number] ####[facility] (KelkooAKER)[address] [place] [address] ERYTHROCYTE MEAN CORPUSCULAR HEMOGLOBIN CONCENTRATION (G/DL) BY AUTOMATED 30.8 g/dL Low 32.0-35.0 [facility] Comment on above: Performed By: #### L [id number] ####[facility] ([email or web address])[address] [place] [address] Hematocrit (Bld) [Volume fraction] 40.3 % Normal 36.0-48.0 [facility] Comment on above: Performed By: #### L [id number] ####[facility] (BEAKER)[address] [place] [address] Hemoglobin (Bld) [Mass/Vol] 12.4 g/dL Normal 12.0-15.0 [facility] Comment on above: Performed By: #### L [id number] ####[facility] ([facility] [place] [address] MCH (RBC) [Entitic mass] 28.4 pg Normal 27.0-33.0 [facility] Comment on above: Performed By: #### L [id number] ####[facility] ([facility])[address], [place] [address] MCV (RBC) [Entitic vol] 92.4 fL Normal 82.0-98.0 [facility] Comment on above: Performed By: #### L [id number] ####[facility] ([facility] [place] [address] NRBC (PER 100 WBCS) BY AUTOMATED COUNT 0.0 % Normal 0 [facility] Comment on above: Performed By: #### L [id number] ####[facility] (BEAKER)[address] [place] [address] PLATELETS (10*3/UL) IN BLOOD AUTOMATED COUNT 411 10*3/uL High 150-400 [facility] Comment on above: Performed By: #### L [id number] ####[facility] (BEAKER)[address] [place] [address] RBC (Bld) [#/Vol] 4.36 10*6/uL Normal 3.80-5.00 [facility] Comment on above: Performed By: #### L [id number] ####[facility] (BEAKER)[address] [place] [address] WBC (Bld) [#/Vol] 13.41 10*3/uL High 4.00-10.60 [facility] Comment on above: Performed By: #### L [id number] ####[facility] ([facility])[address] [place] [address] COMPREHENSIVE METABOLIC PANE Agus 04-22-2024 Albumin [Mass/Vol] 3.1 g/dL Low 3.5-5.7 [facility] Comment on above: Performed By: #### L [id number] ####[facility] ([facility])[address] [place] [address] ALP [Catalytic activity/Vol] 77 U/L Normal 34-104 [facility] Comment on above: Performed By: #### L [id number] ####[facility] ([facility])[address] [place] [address] ALT [Catalytic activity/Vol] 23 U/L Normal 7-52 [facility] Comment on above: Performed By: #### L [id number] ####[facility] ([facility])[address] [place] [address] Anion gap [Moles/Vol] 9 mmol/L Normal 7-20 [facility] Comment on above: Performed By: #### L [id number] ####[facility] ([facility])[address] [place] [address] AST [Catalytic activity/Vol] 20 U/L Normal 13-39 [facility] Comment on above: Performed By: #### L [id number] ####[facility] ([facility])[address] [place] [address] Bilirubin [Mass/Vol] 0.6 mg/dL Normal 0.3-1.0 [facility] Comment on above: Performed By: #### L [id number] ####[facility] ([facility])[address] [place] [address] Calcium [Mass/Vol] 9.4 mg/dL Normal 8.6-10.3 [facility] Comment on above: Performed By: #### L [id number] ####[facility] ([facility])[address] [place] [address] Chloride [Moles/Vol] 106 mmol/L Normal 98-107 [facility] Comment on above: Performed By: #### L [id number] ####[facility] ([facility])[address] [place] [address] CO2 [Moles/Vol] 27 mmol/L Normal 21-31 [facility] Comment on above: Performed By: #### L [id number] ####[facility] ([facility])[address] [place] [address] Creatinine [Mass/Vol] 1.18 mg/dL Normal 0.60-1.20 [facility] Comment on above: Performed By: #### L [id number] ####[facility] ([facility])[address] [place] [address] GLOMERULAR FILTRATION RATE ML/MIN/1.73 SQ M.PREDICTED 49.4 mL/min/1.73m*2 Low >60.0 [facility] Comment on above: Result Comment: The [facility]???s estimated glomerular filtration rate (eGFR) will no [...] of individuals. Performed By: #### L [id number] ####[facility] ([facility])[address] [place] [address] Glucose [Mass/Vol] 111 mg/dL High 70-100 [facility] Comment on above: Performed By: #### L [id number] ####[facility] ([facility])[address] [place] [address] Potassium [Moles/Vol] 3.9 mmol/L Normal 3.5-5.1 [facility] Comment on above: Performed By: #### L [id number] ####[facility] ([facility])[address] [place] [address] Protein [Mass/Vol] 5.7 g/dL Low 6.0-8.3 [facility] Comment on above: Performed By: #### L [id number] ####[facility] ([facility])[address] [place] [address] Sodium [Moles/Vol] 138 mmol/L Normal 136-145 [facility] Comment on above: Performed By: #### L [id number] ####[facility] ([facility])[address] [place] [address] Urea nitrogen [Mass/Vol] 40 mg/dL High 7-25 [facility] Comment on above: Performed By: #### L [id number] ####[facility] ([facility])[address] [place] [address] UREA NITROGEN/CREATININE (MASS RATIO) IN SER/PLAS 33.9 Normal [facility] Comment on above: Performed By: #### L [id number] ####[facility] ([facility])[address] [place] [address] MAGNESIUMon 04-22-2024 Magnesium [Mass/Vol] 2.3 mg/dL Normal 1.9-2.7 [facility] Comment on above: Performed By: #### L [id number] #### [facility] ([facility]) [address] [place] [address] MANUAL DIFFERENTIALon 2023 BASOPHILS (10*3/UL) IN BLOOD BY CALCULATION 0.05 10*3/uL Normal 0.00-0.20 [facility] Comment on above: Performed By: #### L [id number] #### [facility] ([facility]) [address] [place] [address] BASOPHILS/100 LEUKOCYTES IN BLOOD BY AUTOMATED COUNT 0.4 % Normal 0.0-1.0 [facility] Comment on above: Performed By: #### L [id number] #### [facility] ([facility]) [address] [place] [address] EOSINOPHILS (10*3/UL) IN BLOOD BY CALCULATION 0.24 10*3/uL Normal 0.00-0.50 [facility] Comment on above: Performed By: #### L [id number] #### [facility] ([facility]) [address] [place] [address] EOSINOPHILS/100 LEUKOCYTES IN BLOOD BY AUTOMATED COUNT 1.8 % Normal 0.0-6.0 [facility] Comment on above: Performed By: #### L [id number] #### [facility] ([facility]) [address] [place] [address] IMMATURE GRANULOCYTES (10*3/UL) IN BLOOD BY CALCULATION 0.05 10*3/uL Normal 0.00-0.20 [facility] Comment on above: Performed By: #### L [id number] #### [facility] ([facility]) [address] [place] [address] IMMATURE GRANULOCYTES/100 LEUKOCYTES IN BLOOD BY AUTOMATED COUNT 0.4 % Normal 0.0-1.0 [facility] Comment on above: Performed By: #### L [id number] #### [facility] ([facility]) [address] [place] [address] LYMPHOCYTES (10*3/UL) IN BLOOD BY CALCULATION 1.43 10*3/uL Normal 1.20-4.00 [facility] Comment on above: Performed By: #### L [id number] #### [facility] ([facility]) [address] [place] [address] LYMPHOCYTES/100 LEUKOCYTES IN BLOOD BY AUTOMATED COUNT 10.7 % Low 20.0-45.0 [facility] Comment on above: Performed By: #### L [id number] #### [facility] ([facility]) [address] [place] [address] MONOCYTES (10*3/UL) IN BLOOD BY CALCUATION 1.82 10*3/uL High 0.10-1.00 [facility] Comment on above: Performed By: #### L [id number] #### [facility] ([facility]) [address] [place] [address] MONOCYTES/100 LEUKOCYTES IN BLOOD BY AUTOMATED COUNT 13.6 % High 5.0-12.0 [facility] Comment on above: Performed By: #### L [id number] #### [facility] ([facility]) [address] [place] [address] NEUTROPHILS (10*3/UL) IN BLOOD BY CALCULATION 9.8 10*3/uL High 1.6-7.6 [facility] Comment on above: Performed By: #### L [id number] #### [facility] ([facility]) [address] [place] [address] NEUTROPHILS/100 LEUKOCYTES IN BLOOD BY AUTOMATED COUNT 73.1 % High 40.0-72.0 [facility] Comment on above: Performed By: #### L [id number] #### [facility] ([facility]) [address] [place] [address] NURSNOTEon 04-22-2024 NURSNOTE CALOS reviewed with patient, patient verbalized understanding, wheelchair offered and accepted. Patient discharged via wheelchair by harman Begum without complications. Normal [facility] POCT GLUCOSE METER UNSOLICIT ED RESULTSon 04-22-2024 Glucose [Mass/Vol] 267 mg/dL High 70-105 [facility] Comment on above: Order Comment: Waive d Testing in the ED is performed under the ED CLIA certificate #[id number]. Result Comment: [email or web address] Performed By: #### L [id number] #### [facility] ([facility]) [address] [place] [address] Glucose [Mass/Vol] 136 mg/dL High 70-105 [facility] Comment on above: Order Comment: Waive d Testing in the ED is performed under the ED CLIA certificate #[id number]. Result Comment: [email or web address] Performed By: #### L [id number] #### [facility] ([facility]) [address] [place] [address] 30on 04-21-2024 30 The patient is Moderately Stable - [...] prescribed range: Monitor blood glucose as ordered Normal [facility] 30 The patient is Moderately Stable - [...] or baseline comfort level Outcome: Progressing . Normal [facility] 30 Daily Case Managemen t Update Multidisciplinary [...] for OT? Answer: increase adls assist 04/19/24 0537 04/19/24 0536 PT eval and treat Until therapy completed Question: Reason for PT? Answer: decondtioing 04/19/24 05 Normal [facility] CBC WITH AUTO DIFFERENTIALon 04-21-2024 Erythrocyte distribution width (RBC) [Ratio] 16.6 % High 11.5-15.0 [facility] Comment on above: Performed By: #### L [id number] #### [facility] (BEAKER) [address] [place] [address] ERYTHROCYTE MEAN CORPUSCULAR HEMOGLOBIN CONCENTRATION (G/DL) BY AUTOMATED 31.8 g/dL Low 32.0-35.0 [facility] Comment on above: Performed By: #### L [id number] #### [facility] (BEAKER) [address] [place] [address] Hematocrit (Bld) [Volume fraction] 40.2 % Normal 36.0-48.0 [facility] Comment on above: Performed By: #### L [id number] #### [facility] (BEAKER) [address] [place] [address] Hemoglobin (Bld) [Mass/Vol] 12.8 g/dL Normal 12.0-15.0 [facility] Comment on above: Performed By: #### L [id number] #### [facility] (BEAKER) [address] [place] [address] MCH (RBC) [Entitic mass] 29.0 pg Normal 27.0-33.0 [facility] Comment on above: Performed By: #### L [id number] #### [facility] (BEAKER) [address] [place] [address] MCV (RBC) [Entitic vol] 91.0 fL Normal 82.0-98.0 [facility] Comment on above: Performed By: #### L [id number] #### [facility] ([facility]) [address] [place] [address] NRBC (PER 100 WBCS) BY AUTOMATED COUNT 0.0 % Normal 0 [facility] Comment on above: Performed By: #### L [id number] #### [facility] ([facility]) [address] [place] [address] PLATELETS (10*3/UL) IN BLOOD AUTOMATED COUNT 419 10*3/uL High 150-400 [facility] Comment on above: Performed By: #### L [id number] #### [facility] ([facility]) [address] [place] [address] RBC (Bld) [#/Vol] 4.42 10*6/uL Normal 3.80-5.00 [facility] Comment on above: Performed By: #### L [id number] #### [facility] ([facility]) [address] [address] WBC (Bld) [#/Vol] 17.29 10*3/uL High 4.00-10.60 [facility] Comment on above: Performed By: #### L [id number] #### [facility] ([facility]) [address] [address] COMPREHENSIVE METABOLIC PANE Agus 04-21-2024 Albumin [Mass/Vol] 3.3 g/dL Low 3.5-5.7 [facility] Comment on above: Performed By: #### L [id number] ####[facility] ([facility])[address] [place] [address] ALP [Catalytic activity/Vol] 96 U/L Normal 34-104 [facility] Comment on above: Performed By: #### L [id number] ####[facility] ([facility])[address] [place] [address] ALT [Catalytic activity/Vol] 31 U/L Normal 7-52 [facility] Comment on above: Performed By: #### L [id number] ####[facility] (BEAKER)[address] [place] [address] Anion gap [Moles/Vol] 12 mmol/L Normal 7-20 [facility] Comment on above: Performed By: #### L [id number] ####[facility] (BEAKER)[address] [place] [address] AST [Catalytic activity/Vol] 27 U/L Normal 13-39 [facility] Comment on above: Performed By: #### L [id number] ####[facility] (BEAKER)[address] [place] [address] Bilirubin [Mass/Vol] 0.6 mg/dL Normal 0.3-1.0 [facility] Comment on above: Performed By: #### L [id number] ####[facility] (BEAKER)[address] [place] [address] Calcium [Mass/Vol] 9.7 mg/dL Normal 8.6-10.3 [facility] Comment on above: Performed By: #### L [id number] ####[facility] (BEAKER)[address] [place] [address] Chloride [Moles/Vol] 104 mmol/L Normal 98-107 [facility] Comment on above: Performed By: #### L [id number] ####[facility] ([facility]AKER)[address] [place] [address] CO2 [Moles/Vol] 24 mmol/L Normal 21-31 [facility] Comment on above: Performed By: #### L [id number] ####[facility] (BEAKER)[address] [place] [address] Creatinine [Mass/Vol] 1.03 mg/dL Normal 0.60-1.20 [facility] Comment on above: Performed By: #### L [id number] ####[facility] (BEAKER)[address] [place] [address] GLOMERULAR FILTRATION RATE ML/MIN/1.73 SQ M.PREDICTED 58.1 mL/min/1.73m*2 Low >60.0 [facility] Comment on above: Result Comment: The [facility]???s estimated glomerular filtration rate (eGFR) will no [...] of individuals. Performed By: #### L [id number] ####[facility] ([facility])[address] [place] [address] Glucose [Mass/Vol] 139 mg/dL High 70-100 [facility] Comment on above: Performed By: #### L [id number] ####[facility] ([facility])[address] [place] [address] Potassium [Moles/Vol] 3.8 mmol/L Normal 3.5-5.1 [facility] Comment on above: Performed By: #### L [id number] ####[facility] ([facility])[address] [place] [address] Protein [Mass/Vol] 6.1 g/dL Normal 6.0-8.3 [facility] Comment on above: Performed By: #### L [id number] ####[facility] ([facility])[address] [facility] [place] [place] [address] Sodium [Moles/Vol] 136 mmol/L Normal 136-145 [facility] Comment on above: Performed By: #### L [id number] ####[facility] ([facility])[address] [place] [address] Urea nitrogen [Mass/Vol] 40 mg/dL High 7-25 [facility] Comment on above: Performed By: #### L [id number] ####[facility] ([facility])[address] [place] [address] UREA NITROGEN/CREATININE (MASS RATIO) IN SER/PLAS 38.8 Normal [facility] Comment on above: Performed By: #### L [id number] ####[facility] ([facility] [place] [address] MAGNESIUMon 04-21-2024 Magnesium [Mass/Vol] 2.2 mg/dL Normal 1.9-2.7 [facility] Comment on above: Performed By: #### L [id number] #### [facility] ([facility]) [address] [place] [address] MANUAL DIFFERENTIALon 2023 BASOPHILS (10*3/UL) IN BLOOD BY CALCULATION 0.00 10*3/uL Normal 0.00-0.20 [facility] Comment on above: Performed By: #### L [id number] #### [facility] ([facility]) [address] [place] [address] BASOPHILS/100 LEUKOCYTES IN BLOOD BY AUTOMATED COUNT 0.0 % Normal 0.0-1.0 [facility] Comment on above: Performed By: #### L [id number] #### [facility] ([facility]) [address] [place] [address] EOSINOPHILS (10*3/UL) IN BLOOD BY CALCULATION 0.00 10*3/uL Normal 0.00-0.50 [facility] Comment on above: Performed By: #### L [id number] #### [facility] ([facility]) [address] [place] [address] EOSINOPHILS/100 LEUKOCYTES IN BLOOD BY AUTOMATED COUNT 0.0 % Normal 0.0-6.0 [facility] Comment on above: Performed By: #### L [id number] #### [facility] ([facility]) [address] [place] [address] IMMATURE GRANULOCYTES (10*3/UL) IN BLOOD BY CALCULATION 0.10 10*3/uL Normal 0.00-0.20 [facility] Comment on above: Performed By: #### L [id number] #### [facility] ([facility]) [address] [place] [address] IMMATURE GRANULOCYTES/100 LEUKOCYTES IN BLOOD BY AUTOMATED COUNT 0.6 % Normal 0.0-1.0 [facility] Comment on above: Performed By: #### L [id number] #### [facility] ([facility]) [address] [address] LYMPHOCYTES (10*3/UL) IN BLOOD BY CALCULATION 0.92 10*3/uL Low 1.20-4.00 [facility] Comment on above: Performed By: #### L [id number] #### [facility] ([facility]) [address] [address] LYMPHOCYTES/100 LEUKOCYTES IN BLOOD BY AUTOMATED COUNT 5.3 % Low 20.0-45.0 [facility] Comment on above: Performed By: #### L [id number] #### [facility] ([facility]) [address] [place] [address] MONOCYTES (10*3/UL) IN BLOOD BY CALCUATION 1.61 10*3/uL High 0.10-1.00 [facility] Comment on above: Performed By: #### L [id number] #### [facility] ([facility]) [address] [address] MONOCYTES/100 LEUKOCYTES IN BLOOD BY AUTOMATED COUNT 9.3 % Normal 5.0-12.0 [facility] Comment on above: Performed By: #### L [id number] #### [facility] ([facility]) [address] [address] NEUTROPHILS (10*3/UL) IN BLOOD BY CALCULATION 14.8 10*3/uL High 1.6-7.6 [facility] Comment on above: Performed By: #### L [id number] #### [facility] ([facility]) [address] [address] NEUTROPHILS/100 LEUKOCYTES IN BLOOD BY AUTOMATED COUNT 85.4 % High 40.0-72.0 [facility] Comment on above: Performed By: #### L [id number] #### [facility] ([facility]) [address] [place] [address] PLASMA CELLS/100 LEUKOCYTES IN BLOOD 0 % Normal 0 [facility] Comment on above: Performed By: #### L [id number] #### [facility] ([facility]) [address] [place] [address] VARIANT LYMPHOCYTES (10*3/UL) IN BLOOD BY CALCULATION 0.00 10*3/uL Normal 0.00 [facility] Comment on above: Performed By: #### L [id number] #### [facility] ([facility]) [address] [place] [address] VARIANT LYMPHOCYTES/100 LEUKOCYTES IN BLOOD CELLAVISION 0.0 % Normal 0.0-0.0 [facility] Comment on above: Performed By: #### L [id number] #### [facility] ([facility]) [address] [place] [address] POCT GLUCOSE METER UNSOLICIT ED RESULTSon 04-21-2024 Glucose [Mass/Vol] 195 mg/dL High 70-105 [facility] Comment on above: Order Comment: Waive d Testing in the ED is performed under the ED CLIA certificate #[id number]. Result Comment: [email or web address] Performed By: #### L [id number] ####[facility] ([facility])[address] [place] [address] Glucose [Mass/Vol] 277 mg/dL High 70-105 [facility] Comment on above: Order Comment: Waive d Testing in the ED is performed under the ED CLIA certificate #[id number]. Result Comment: [email or web address] Performed By: #### L [id number] #### [facility] ([facility]) [address] [place] [address] Glucose [Mass/Vol] 165 mg/dL High 70-105 [facility] Comment on above: Order Comment: Waive d Testing in the ED is performed under the ED CLIA certificate #[id number]. Result Comment: [email or web address] Performed By: #### L [id number] #### [facility] ([facility]) [address] [place] [address] Glucose [Mass/Vol] 177 mg/dL High 70-105 [facility] Comment on above: Order Comment: Waive d Testing in the ED is performed under the ED CLIA certificate #[id number]. Result Comment: [email or web address] Performed By: #### L [id number] #### [facility] ([facility]) [address] [place] [address] Glucose [Mass/Vol] 226 mg/dL High 70-105 [facility] Comment on above: Order Comment: Waive d Testing in the ED is performed under the ED CLIA certificate #[id number]. Result Comment: [email or web address] Performed By: #### L [id number] #### [facility] ([facility]) [address] [place] [address] 30on 04-20-2024 30 The patient is Moderately Unstable - Medium risk of patient condition declining [...] and maintained or improved Outcome: Progressing Problem: Respiratory - Adult Goal: [...] mucous membranes remain intact Outcome: Progressing Problem: Metabolic/Fluid and Electrolytes - Adult Goal: Glucose maintained within prescribed range Outcome: Progressing Problem: Hematologic - Adult Goal: Maintains hematologic stability Outcome: Progressing Normal [facility] 30 The patient is Moderately Stable - [...] or baseline comfort level Outcome: Progressing . Normal [facility] 30 Daily Case Managemen t Update Multidisciplinary rounds have been completed. Barriers to Discharge: Pending clinical course and improvement in clinical condition. Admitted with c/o CP, NSTEMI. Transferred from [facility]. History of cardiac stent with Impella [...] for OT? Answer: increase adls assist 04/19/24 0537 04/19/24 0536 PT eval and treat Until therapy completed Question: Reason for PT? Answer: decondtioing 04/19/24 05 Normal [facility] B-TYPE NATRIURETIC PEPTIDEon 04-20-2024 Natriuretic peptide B (Bld) [Mass/Vol] 4139 pg/mL High 0-100 [facility] Comment on above: Performed By: #### L [id number] #### [facility] (BEAKER) [address] [place] [address] BASIC METABOLIC PANELon 04-09 Anion gap [Moles/Vol] 13 mmol/L Normal 7-20 [facility] Comment on above: Performed By: #### L [id number] #### [facility] ([facility]) [address] [place] [address] Calcium [Mass/Vol] 9.9 mg/dL Normal 8.6-10.3 [facility] Comment on above: Performed By: #### L [id number] #### [facility] ([facility]) [address] [place] [address] Chloride [Moles/Vol] 102 mmol/L Normal 98-107 [facility] Comment on above: Performed By: #### L [id number] #### [facility] ([facility]) [address] [place] [address] CO2 [Moles/Vol] 24 mmol/L Normal 21-31 [facility] Comment on above: Performed By: #### L [id number] #### [facility] ([facility]) [address] [place] [address] Creatinine [Mass/Vol] 0.93 mg/dL Normal 0.60-1.20 [facility] Comment on above: Performed By: #### L [id number] #### [facility] ([facility]) [address] [place] [address] GLOMERULAR FILTRATION RATE ML/MIN/1.73 SQ M.PREDICTED 65.7 mL/min/1.73m*2 Normal >60.0 [facility] Comment on above: Result Comment: The [facility]???s estimated glomerular filtration rate (eGFR) will no [...] group of individuals. Performed By: #### L [id number] #### [facility] ([facility]) [address] [place] [address] Glucose [Mass/Vol] 182 mg/dL High 70-100 [facility] Comment on above: Performed By: #### L [id number] #### [facility] ([facility]) [address] [place] [address] Potassium [Moles/Vol] 4.0 mmol/L Normal 3.5-5.[address] [facility] Comment on above: Performed By: #### L [id number] #### [facility] ([facility]) [address] [place] [address] Sodium [Moles/Vol] 135 mmol/L Low 136-145 [facility] Comment on above: Performed By: #### L [id number] #### [facility] ([facility]) [address] [place] [address] Urea nitrogen [Mass/Vol] 30 mg/dL High 7-25 [facility] Comment on above: Performed By: #### L [id number] #### [facility] ([facility]) [address] [place] [address] UREA NITROGEN/CREATININE (MASS RATIO) IN SER/PLAS 32.3 Normal [facility] Comment on above: Performed By: #### L [id number] #### [facility] ([facility]) [address] [place] [address] CBC WITH AUTO DIFFERENTIALon 04-20-2024 Erythrocyte distribution width (RBC) [Ratio] 16.7 % High 11.5-15.0 [facility] Comment on above: Performed By: #### L [id number] #### [facility] ([facility]) [address] [place] [address] ERYTHROCYTE MEAN CORPUSCULAR HEMOGLOBIN CONCENTRATION (G/DL) BY AUTOMATED 30.9 g/dL Low 32.0-35.0 [facility] Comment on above: Performed By: #### L [id number] #### [facility] ([facility]) [address] [place] [address] Hematocrit (Bld) [Volume fraction] 40.1 % Normal 36.0-48.0 [facility] Comment on above: Performed By: #### L [id number] #### [facility] ([facility]) [address] [place] [address] Hemoglobin (Bld) [Mass/Vol] 12.4 g/dL Normal 12.0-15.0 [facility] Comment on above: Performed By: #### L [id number] #### [facility] ([facility]) [address] [place] [address] MCH (RBC) [Entitic mass] 28.4 pg Normal 27.0-33.0 [facility] Comment on above: Performed By: #### L [id number] #### [facility] ([facility]) [address] [place] [address] MCV (RBC) [Entitic vol] 91.8 fL Normal 82.0-98.0 [facility] Comment on above: Performed By: #### L [id number] #### [facility] ([facility]) [address] [place] [address] NRBC (PER 100 WBCS) BY AUTOMATED COUNT 0.0 % Normal 0 [facility] Comment on above: Performed By: #### L [id number] #### [facility] ([facility]) [address] [place] [address] PLATELETS (10*3/UL) IN BLOOD AUTOMATED COUNT 369 10*3/uL Normal 150-400 [facility] Comment on above: Performed By: #### L [id number] #### [facility] ([facility]) [address] [place] [address] RBC (Bld) [#/Vol] 4.37 10*6/uL Normal 3.80-5.00 [facility] Comment on above: Performed By: #### L [id number] #### [facility] ([facility]) [address] [place] [address] WBC (Bld) [#/Vol] 21.55 10*3/uL High 4.00-10.60 [facility] Comment on above: Performed By: #### L [id number] #### [facility] ([facility]) [address] [place] [address] [id number] GENOTYPINGon 024 [id number] INTERPRETATION See Note Normal [facility] Comment on above: Result Comment: The following CKV2V81 allele(s) were detected: *1/*17. This result predicts the rapid metabolizer phenotype. Recommendation: Guidelines for genotype-based dosing are published by the Clinical Pharmacogenetics Implementation Consortium(CPIC) and can be found at: https://cpicpgx.org/ and https://www.pharmgkb.org/. This result has been reviewed and approved by Abad Worthy M.D. BACKGROUND INFORMATION: QOR1S84 Characteristics: The cytochrome P450 (CYP) isozyme 2C19 is involved in the metabolism of many drugs. Variants in the gene that code for [id number] will influence pharmacokinetics of CNZ1W31 substrates, and may predict or explain non-standard dose requirements, therapeutic failure or adverse reactions. Inheritance: Autosomal codominant. Cause: LHB1V99 gene variants affect enzyme function. Variants Tested: (Variants are numbered according to [id number] transcript). *1: Indicative of no detected targeted variants and an assumption of functional allele. No variants detected is predictive of the *1 functional allele. TTB7V02*2: [id number], c.681G>A; [id number], c.332-23A>G IXN1I26*3: [id number], c.636G>A VDI4B17*4A: [id number], c.1A>G AWU2A58*4B: [id number], c.1A>G; [id number], c.-806C>T QVC5Y42*5: [id number], c.1297C>T BIK5Z51*6: [id number], c.395G>A SQO5A90*7: [id number], c.819+2T>A UHY9L40*8: [id number], c.358T>C VVH0A97*9: [id number], c.431G>A TRP8F92*17: [id number], c.-806C>T ZYW6S72*35: [id number], c.332-23A>G Clinical Sensitivity: Drug-dependent. Methodology: Polymerase chain reaction (PCR) and fluorescence monitoring. Analytical Sensitivity and Specificity: Greater than 99 percent. Limitations: Only the targeted DIQ2Q03 variants will be detected by this panel, and assumptions about phase and content are made to assign alleles. Publicly available sources such as the www.pharmvar.org or www.pharmgkb.org provide guidance on phenotype predictions and allele frequencies. Diagnostic errors can occur due to rare sequence variations. Risk of therapeutic failure or adverse reactions with WVX6D48 substrates may be affected by genetic and [...] developed and its performance characteristics determined by [employer]. It has not been cleared or approved by the US Food and Drug Administration. This test was performed in a CLIA certified laboratory and is intended for clinical purposes. Counseling and informed consent are recommended for genetic testing. Consent forms are available online. Performed By: #### L [id number] #### [facility] ([employer]) [address] [place] [address] [id number] SPECIMEN Whole Blood Normal [facility] Comment on above: Performed By: #### L [id number] #### [facility] ([employer]) [address] [place] [address] QYC5S33 GENOTYPE *1/*17 Normal [facility] Comment on above: Performed By: #### L [id number] #### [facility] ([employer]) [address] [place] [address] [id number] PHENOTYPE Rapid Abnormal [facility] Comment on above: Performed By: #### L [id number] #### [facility] ([employer]) [address] [place] [address] EER [id number] See Note Normal [facility] Comment on above: Result Comment: Auth orized individuals can access the [facility] Enhanced Report using the following link: [email or web address] Performed By: [facility] [address] [place] [address] Anode Rebuilder: Chuck Burr MD, PhD CLIA Number: [id number] Performed By: #### L [id number] #### [facility] ([facility]) [address] [place] [address] HEPATIC FUNCTION PANELon Albumin [Mass/Vol] 3.3 g/dL Low 3.5-5.7 [facility] Comment on above: Performed By: #### L [id number] #### [facility] ([facility]) [address] [place] [address] ALP [Catalytic activity/Vol] 105 U/L High 34-104 [facility] Comment on above: Performed By: #### L [id number] #### [facility] ([facility]) [address] [place] [address] ALT [Catalytic activity/Vol] 42 U/L Normal 7-52 [facility] Comment on above: Performed By: #### L [id number] #### [facility] ([facility]) [address] [place] [address] AST [Catalytic activity/Vol] 47 U/L High 13-39 [facility] Comment on above: Performed By: #### L [id number] #### [facility] ([facility]) [address] [place] [address] Bilirubin [Mass/Vol] 1.0 mg/dL Normal 0.3-1.0 [facility] Comment on above: Performed By: #### L [id number] #### [facility] ([facility]) [address] [place] [address] Magnesium [Mass/Vol] 0.2 mg/dL Normal 0-0.2 [facility] Comment on above: Performed By: #### L [id number] #### [facility] ([facility]) [address] [place] [address] Protein [Mass/Vol] 6.1 g/dL Normal 6.0-8.3 [facility] Comment on above: Performed By: #### L [id number] #### [facility] ([facility]) [address] [place] [address] LIPOPROTEIN A (LPA)on 2023 Magnesium [Mass/Vol] 88 mg/dL High <=29 [facility] Comment on above: Result Comment: Perf ormed By: [facility] [address] [place] [address] Anode Rebuilder: Chuck Burr MD, PhD CLIA Number: [id number] Performed By: #### L [id number] #### [facility] ([facility]) [address] [place] [address] MANUAL DIFFERENTIALon 2023 BASOPHILS (10*3/UL) IN BLOOD BY CALCULATION 0.00 10*3/uL Normal 0.00-0.20 [facility] Comment on above: Performed By: #### L [id number] #### [facility] ([facility]) [address] [place] [address] BASOPHILS/100 LEUKOCYTES IN BLOOD BY AUTOMATED COUNT 0.0 % Normal 0.0-1.0 [facility] Comment on above: Performed By: #### L [id number] #### [facility] ([facility]) [address] [place] [address] EOSINOPHILS (10*3/UL) IN BLOOD BY CALCULATION 0.00 10*3/uL Normal 0.00-0.50 [facility] Comment on above: Performed By: #### L [id number] #### [facility] ([facility]) [address] [place] [address] EOSINOPHILS/100 LEUKOCYTES IN BLOOD BY AUTOMATED COUNT 0.0 % Normal 0.0-6.0 [facility] Comment on above: Performed By: #### L [id number] #### [facility] ([facility]) [address] [place] [address] IMMATURE GRANULOCYTES (10*3/UL) IN BLOOD BY CALCULATION 0.13 10*3/uL Normal 0.00-0.20 [facility] Comment on above: Performed By: #### L [id number] #### [facility] ([facility]) [address] [place] [address] IMMATURE GRANULOCYTES/100 LEUKOCYTES IN BLOOD BY AUTOMATED COUNT 0.6 % Normal 0.0-1.0 [facility] Comment on above: Performed By: #### L [id number] #### [facility] ([facility]) [address] [place] [address] LYMPHOCYTES (10*3/UL) IN BLOOD BY CALCULATION 1.14 10*3/uL Low 1.20-4.00 [facility] Comment on above: Performed By: #### L [id number] #### [facility] ([facility]) [address] [place] [address] LYMPHOCYTES/100 LEUKOCYTES IN BLOOD BY AUTOMATED COUNT 5.3 % Low 20.0-45.0 [facility] Comment on above: Performed By: #### L [id number] #### [facility] ([facility]) [address] [place] [address] MONOCYTES (10*3/UL) IN BLOOD BY CALCUATION 2.00 10*3/uL High 0.10-1.00 [facility] Comment on above: Performed By: #### L [id number] #### [facility] ([facility]) [address] [place] [address] MONOCYTES/100 LEUKOCYTES IN BLOOD BY AUTOMATED COUNT 9.3 % Normal 5.0-12.0 [facility] Comment on above: Performed By: #### L [id number] #### [facility] ([facility]) [address] [place] [address] NEUTROPHILS (10*3/UL) IN BLOOD BY CALCULATION 18.4 10*3/uL High 1.6-7.6 [facility] Comment on above: Performed By: #### L [id number] #### [facility] ([facility]) [address] [place] [address] NEUTROPHILS/100 LEUKOCYTES IN BLOOD BY AUTOMATED COUNT 85.4 % High 40.0-72.0 [facility] Comment on above: Performed By: #### L [id number] #### [facility] ([facility]) [address] [place] [address] PLASMA CELLS/100 LEUKOCYTES IN BLOOD 0 % Normal 0 [facility] Comment on above: Performed By: #### L [id number] #### [facility] ([facility]) [address] [place] [address] VARIANT LYMPHOCYTES (10*3/UL) IN BLOOD BY CALCULATION 0.00 10*3/uL Normal 0.00 [facility] Comment on above: Performed By: #### L [id number] #### [facility] ([facility]) [address] [place] [address] VARIANT LYMPHOCYTES/100 LEUKOCYTES IN BLOOD CELLAVISION 0.0 % Normal 0.0-0.0 [facility] Comment on above: Performed By: #### L [id number] #### [facility] ([facility]) [address] [place] [address] POCT GLUCOSE METER UNSOLICIT ED RESULTSon 04-20-2024 Glucose [Mass/Vol] 292 mg/dL High 70-105 [facility] Comment on above: Order Comment: Waive d Testing in the ED is performed under the ED CLIA certificate #[id number]. Result Comment: [email or web address] [email or web address] Performed By: #### L [id number] #### [facility] ([facility]) [address] [place] [address] Glucose [Mass/Vol] 316 mg/dL High 70-105 [facility] Comment on above: Order Comment: Waive d Testing in the ED is performed under the ED CLIA certificate #[id number]. Result Comment: [email or web address] [email or web address] Performed By: #### L [id number] #### [facility] ([facility]) [address] [place] [address] Glucose [Mass/Vol] 176 mg/dL High 70-105 [facility] Comment on above: Order Comment: Waive d Testing in the ED is performed under the ED CLIA certificate #[id number]. Result Comment: nkur th Performed By: #### L [id number] ####[facility] ([facility])[address] [place] [address] Glucose [Mass/Vol] 175 mg/dL High 70-105 [facility] Comment on above: Order Comment: Waive d Testing in the ED is performed under the ED CLIA certificate #[id number]. Result Comment: [email or web address] Performed By: #### L [id number] #### [facility] ([facility]) [address] [place] [address] TROPONIN Ion 04-20-2024 Troponin I.cardiac [Mass/Vol] 12.78 ng/mL Critically high 0.00-0.04 [facility] Comment on above: Result Comment: Prev ious result verified on 04/19/2024 2358 on specimen/case [id number] called with component Troponin I for procedure Troponin I with value 19.85 ng/mL. Performed By: #### L [id number] ####[facility] ([facility])[address] [place] [address] Troponin I.cardiac [Mass/Vol] 15.43 ng/mL Critically high 0.00-0.04 [facility] Comment on above: Result Comment: Prev ious result verified on 04/19/2024 2358 on specimen/case [id number] called with component Troponin I for procedure Troponin I with value 19.85 ng/mL. Performed By: #### L [id number] #### [facility] ([facility]) [address] [place] [address] 30on 04-19-2024 30 The patient is Moderately Stable - Low risk of patient condition declining or worsening The patient's goals for the shift include find out answers The clinical goals for the shift include stable vitals Normal [facility] 30 The patient is Moderately Stable - [...] or baseline comfort level Outcome: Progressing . Normal [facility] APTTon 04-19-2024 ACTIVATED PARTIAL THROMBOPLASTIN TIME IN PPP BY COAGULATION ASSAY 29.5 Seconds Normal 25.0-35.0 [facility] Comment on above: Order Comment: Basel ine aPTT before initiating heparin infusion. Result Comment: Clin ical significance of the APTT is questionable in the presence of heparin. Performed By: #### L [id number] ####[facility] ([facility])[address] [place] [address] CBC WITH AUTO DIFFERENTIALon 04-19-2024 Erythrocyte distribution width (RBC) [Ratio] 16.4 % High 11.5-15.0 [facility] Comment on above: Performed By: #### L [id number] ####[facility] ([facility])[address] [place] [address] ERYTHROCYTE MEAN CORPUSCULAR HEMOGLOBIN CONCENTRATION (G/DL) BY AUTOMATED 30.7 g/dL Low 32.0-35.0 [facility] Comment on above: Performed By: #### L [id number] ####[facility] ([facility])[address] [place] [address] Hematocrit (Bld) [Volume fraction] 40.1 % Normal 36.0-48.0 [facility] Comment on above: Performed By: #### L [id number] ####[facility] ([facility])[address] [place] [address] Hemoglobin (Bld) [Mass/Vol] 12.3 g/dL Normal 12.0-15.0 [facility] Comment on above: Performed By: #### L [id number] ####[facility] ([facility])[address] [place] [address] MCH (RBC) [Entitic mass] 28.7 pg Normal 27.0-33.0 [facility] Comment on above: Performed By: #### L [id number] ####[facility] ([facility])[address] [place] [address] MCV (RBC) [Entitic vol] 93.5 fL Normal 82.0-98.0 [facility] Comment on above: Performed By: #### L [id number] ####[facility] ([facility])[address] [place] [address] NRBC (PER 100 WBCS) BY AUTOMATED COUNT 0.0 % Normal 0 [facility] Comment on above: Performed By: #### L [id number] ####[facility] ([facility])[address] [place] [address] PLATELETS (10*3/UL) IN BLOOD AUTOMATED COUNT 312 10*3/uL Normal 150-400 [facility] Comment on above: Performed By: #### L [id number] ####[facility] ([facility])[address] [place] [address] RBC (Bld) [#/Vol] 4.29 10*6/uL Normal 3.80-5.00 [facility] Comment on above: Performed By: #### L [id number] ####[facility] ([facility])[address] [place] [address] WBC (Bld) [#/Vol] 23.34 10*3/uL High 4.00-10.60 [facility] Comment on above: Performed By: #### L [id number] ####[facility] ([facility])[address] [place] [address] CKon 04-19-2024 CREATINE KINASE (U/L) IN SER/PLAS 467.0 U/L High 30.0-223.0 [facility] Comment on above: Performed By: #### L [id number] #### [facility] ([facility]) [address] [place] [address] COMPREHENSIVE METABOLIC PANE Agus 04-19-2024 Albumin [Mass/Vol] 3.6 g/dL Normal 3.5-5.7 [facility] Comment on above: Performed By: #### L [id number] #### [facility] ([facility]) [address] [place] [address] ALP [Catalytic activity/Vol] 107 U/L High 34-104 [facility] Comment on above: Performed By: #### L [id number] #### [facility] ([facility]) [address] [place] [address] ALT [Catalytic activity/Vol] 63 U/L High 7-52 [facility] Comment on above: Performed By: #### L [id number] #### [facility] ([facility]) [address] [place] [address] Anion gap [Moles/Vol] 15 mmol/L Normal 7-20 [facility] Comment on above: Performed By: #### L [id number] #### [facility] ([facility]) [address] [place] [address] AST [Catalytic activity/Vol] 77 U/L High 13-39 [facility] Comment on above: Performed By: #### L [id number] #### [facility] ([facility]) [address] [place] [address] Bilirubin [Mass/Vol] 1.0 mg/dL Normal 0.3-1.0 [facility] Comment on above: Performed By: #### L [id number] #### [facility] ([facility]) [address] [place] [address] Calcium [Mass/Vol] 9.8 mg/dL Normal 8.6-10.3 [facility] Comment on above: Performed By: #### L [id number] #### [facility] ([facility]) [address] [place] [address] Chloride [Moles/Vol] 102 mmol/L Normal 98-107 [facility] Comment on above: Performed By: #### L [id number] #### [facility] ([facility]) [address] [place] [address] CO2 [Moles/Vol] 21 mmol/L Normal 21-31 [facility] Comment on above: Performed By: #### L [id number] #### [facility] ([facility]) [address] [place] [address] Creatinine [Mass/Vol] 0.90 mg/dL Normal 0.60-1.20 [facility] Comment on above: Performed By: #### L [id number] #### [facility] ([facility]) [address] [place] [address] GLOMERULAR FILTRATION RATE ML/MIN/1.73 SQ M.PREDICTED 68.3 mL/min/1.73m*2 Normal >60.0 [facility] Comment on above: Result Comment: The [facility]???s estimated glomerular filtration rate (eGFR) will no [...] group of individuals. Performed By: #### L [id number] #### [facility] ([facility]) [address] [place] [address] Glucose [Mass/Vol] 273 mg/dL High 70-100 [facility] Comment on above: Performed By: #### L [id number] #### [facility] ([facility]) [address] [place] [address] Potassium [Moles/Vol] 4.4 mmol/L Normal 3.5-5.1 [facility] Comment on above: Performed By: #### L [id number] #### [facility] [facility] ([facility]) [address] [place] [address] Protein [Mass/Vol] 6.2 g/dL Normal 6.0-8.3 [facility] Comment on above: Performed By: #### L [id number] #### [facility] (BEAKER) [address] [place] [address] Sodium [Moles/Vol] 134 mmol/L Low 136-145 [facility] Comment on above: Performed By: #### L [id number] #### [facility] ([facility]) [address] [place] [address] Urea nitrogen [Mass/Vol] 26 mg/dL High 7-25 [facility] Comment on above: Performed By: #### L [id number] #### [facility] ([facility]) [address] [place] [address] UREA NITROGEN/CREATININE (MASS RATIO) IN SER/PLAS 28.9 Normal [facility] Comment on above: Performed By: #### L [id number] #### [facility] ([facility]) [address] [place] [address] CONSULTon 04-19-2024 CONSULT - Attestation signed by Bhargav Rosado MD at 04/19/2024 11:42 AM By [...] will be Toprol XL Outpatient follow-up with [place] cardiology and cardiology pharmacist for treatment with semaglutide or tirzepatide for morbid obesity, diabetes, and CAD continue current GDMT for HFrEF including Toprol-XL, Entresto, spironolactone, Farxiga Bhargav Rosado MD drum tester [facility] [place] [facility] Pager: [phone] Cardiology Consult Note Reason for Consult: chest pain HPI: Laura Lawson is a 73 y.o. female with past history remarkable for primary hypertension, type 2 diabetes mellitus, mixed hyperlipidemia, coronary artery disease status post PCI to LAD, RCA on 10/2023, chronic heart failure with improved ejection fraction 45% previously 30%, who presented to [facility] after transfer from [facility] where she initially presented with left-sided chest pain, found to have elevated high-sensitivity troponin and was transferred to [facility]. During my evaluation today, patient was complaining [...] Admission Medication Sig Dispense Refill Last Dose (more content not included)... Normal [facility] CT ABDOMEN PELVIS W IV CONTR Maira 04-19-2024 CT ABDOMEN PELVIS W IV CONTRAST STUDY: ABDOMEN AND PELVIS CT WITH CONTRAST [...] adjacent atelectasis Electronically signed: Jorje Neumann MD. Normal [facility] Documentationon 04-19-2024 Documentation [id number] Laura Lawson 1950 F Date Provider Department [place] 04/19/2024 BHARGAV MENEZES [facility] CARD [place] Count Family History Problem Relation Age of Onset JABARI disease Mother Heart attack Father Family Status - Relation Status Age at Mother Father Reason for Visit and Comments: Coronary Artery Disease [187] Normal [facility] HEMOGLOBIN A1Con 04-19-2024 Glucose [Mass/Vol] 232 mg/dL Normal [facility] Comment on above: Performed By: #### L [id number] #### [facility] ([facility]) [address] [place] [address] HbA1c (Bld) [Mass fraction] 9.7 % High 4.0-6.0 [facility] Comment on above: Performed By: #### L [id number] #### [facility] ([facility]) [address] [place] [address] HEPATITIS PANEL, ACUTEon HEPATITIS A VIRUS IGM AB PRESENCE IN SER/PLAS Non-Reactive Normal [facility] Comment on above: Performed By: #### L [id number] #### [facility] ([facility]) [address] [place] [address] HEPATITIS B VIRUS CORE AB (PRESENCE) IN SER/PLAS BY IMM Non-Reactive Normal Nonreactive [facility] Comment on above: Performed By: #### L [id number] #### [facility] ([facility]) [address] [place] [address] HEPATITIS B VIRUS SURFACE AG PRESENCE IN SERUM Non-Reactive Normal Nonreactive [facility] Comment on above: Performed By: #### L [id number] #### [facility] ([facility]) [address] [place] [address] HEPATITIS C VIRUS AB PRESENCE IN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 Bowen on 03-23-2022 Monocytes/100 WBC (Bld) 9.8 % . [facility] Neutrophils Auto (Bld) [#/Vo l]Ordered By: Chidi Bowen on 03-23-2022 Neutrophils (Bld) [#/Vol] 8.9 10*3/uL 1.8-7.7 [facility] Neutrophils/100 WBC Auto (Bl d)Ordered By: Chidi Bowen on 03-23-2022 Neutrophils/100 WBC (Bld) 73.7 % . [facility] No Panel InformationOrdered By: Chidi Bowen on 03-23-2022 Estimated GFR () > 60 mL/Min [facility] Comment on above: GFR estimated refere nce range: According to KDOQI guidelines, <60 ml/min/1.73m2 is sufficient to diagnose a patient with chronic kidney disease. Pharmacy Creatinine Clearance (Chem 67.19 [facility] Platelet mean volume Auto (B ld) [Entitic vol]Ordered By: Chidi Bowen on 03-23-2022 Platelet mean volume (Bld) [Entitic vol] 7.3 fL 6.3-10.7 [facility] Platelets Auto (Bld) [#/Vol] Ordered By: Chidi Bowen on 03-23-2022 Platelets (Bld) [#/Vol] 309 10*3/uL 150-450 [facility] Protein [Mass/volume] in Ser um or PlasmaOrdered By: Chidi Bowen on 03-23-2022 Protein [Mass/Vol] 5.6 g/dL 6.1-7.9 [facility] RBC Auto (Bld) [#/Vol]Ordere d By: Chidi Bowen on 03-23-2022 RBC (Bld) [#/Vol] 3.61 10*6/uL 3.60-5.00 [facility] Serum or plasma alanine ng otransferase measurement without P-5'-P (enzymatic activiOrdered By: Chidi Bowen on 03-23-2022 ALT No additional P-5'-P [Catalytic activity/Vol] 28 U/L 10-60 [facility] Serum or plasma albumin/glob ulin mass ratioOrdered By: Chidi Bowen on 03-23-2022 Albumin/Globulin [Mass ratio] 1.1 {ratio} [facility] Serum or plasma alkaline areli sphatase measurement (enzymatic activity/volume)Ordered By: Chidi Bowen on 03-23-2022 ALP [Catalytic activity/Vol] 57 U/L 32-92 [facility] Serum or plasma anion gap de terminationOrdered By: Chidi Bowen on 03-23-2022 Anion gap [Moles/Vol] 10.9 mmol/L 6.0-15.0 [facility] Serum or plasma aspartate am inotransferase measurement (enzymatic activity/volume)Ordered By: Chidi Bowen on 03-23-2022 AST [Catalytic activity/Vol] 26 U/L 10-42 [facility] Serum or plasma calcium annabel urement (mass/volume)Ordered By: Chidi Bowen on 03-23-2022 Calcium [Mass/Vol] 10.0 mg/dL 8.2-10.2 [facility] Serum or plasma chloride meagan surement (moles/volume)Ordered By: Chidi Bowen on 03-23-2022 Chloride [Moles/Vol] 100 mmol/L 95-114 [facility] Serum or plasma glucose annabel urement (mass/volume)Ordered By: Chidi Bowen on 03-23-2022 Glucose [Mass/Vol] 101 mg/dL 70-100 [facility] Comment on above: ADA recommended refe rence rangeRandom Glucose Reference Range is dependent on time and content of last meal. Glucose of more than 200 mg/dL in a nonstressed, ambulatory subject supports the diagnosis of Diabetes Mellitus. Serum or plasma potassium me asurement (moles/volume)Ordered By: Chidi Bowen on 03-23-2022 Potassium [Moles/Vol] 3.6 mmol/L 3.5-5.1 [facility] Serum or plasma prealbumin m easurement (mass/volume)Ordered By: Chidi Bowen on 03-23-2022 Prealbumin [Mass/Vol] 16.4 mg/dL 18.0-38.0 [facility] Serum or plasma sodium measu rement (moles/volume)Ordered By: Chidi Bowen on 03-23-2022 Sodium [Moles/Vol] 137 mmol/L 136-146 [facility] Serum or plasma total biliru bin measurement (mass/volume)Ordered By: Chidi Bowen on 03-23-2022 Bilirubin [Mass/Vol] 0.6 mg/dL 0.3-1.2 [facility] Serum or plasma total carbon dioxide measurement (moles/volume)Ordered By: Chidi Bowen on 03-23-2022 CO2 [Moles/Vol] 29.7 mmol/L 22.0-30.0 [facility] Serum or plasma urea nitroge n measurement (mass/volume)Ordered By: Chidi Bowen on 03-23-2022 Urea nitrogen [Mass/Vol] 46 mg/dL 9 [facility] Glucose Glucometer (BldC) [M ass/Vol]Ordered By: Abner Roa on 03-22-2022 Glucose [Mass/Vol] 183 mg/dL [facility] Comment on above: Random Glucose Refer ence Range is dependent on time and content of last meal. Glucose of more than 200 mg/dL in a nonstressed, ambulatory subject supports the diagnosis of Diabetes Mellitus. No Panel InformationOrdered By: Abner Roa on 03-22-2022 Bedside Glucose Comment Glu2: cleaned meter [facility] COVID-19 Positive/NegativeOr dered By: Abnre Roa on 03-20-2022 SARS-CoV-2 (COVID-19) N gene GUS+probe Ql (Resp) Negative Negative [facility] Comment on above: Testing for SARS-CoV -2 by RT-PCRThis test was developed and its performance characteristics determined by [employer] ([employer]) and validated at the [facility]. This test has not been FDA [...] Bedside Glucose #[address]/rn [facility] COVID-19 Positive/NegativeOr dered By: Abner Roa on 03-14-2022 SARS-CoV-2 (COVID-19) N gene GUS+probe Ql (Resp) Negative Negative [facility] Comment on above: Testing for SARS-CoV -2 by RT-PCRThis test was developed and its performance characteristics determined by [employer] ([employer]) and validated at the [facility]. This test has not been FDA [...] 03-05-2022 Basophils (Bld) [#/Vol] 0.0 10*3/uL 0.0-0.2 [facility] Basophils/100 WBC Auto (Bld) Ordered By: Abner Roa on 03-05-2022 Basophils/100 WBC (Bld) 0.4 % . [facility] Blood hemoglobin measurement (mass/volume)Ordered By: Abner Roa on 03-05-2022 Hemoglobin (Bld) [Mass/Vol] 11.8 g/dL 11.8-15.4 [facility] Blood leukocytes automated c ount (number/volume)Ordered By: Abner Roa on 03-05-2022 WBC (Bld) [#/Vol] 9.2 10*3/uL 4.5-11.0 [facility] Creatinine and Glomerular fi ltration rate.predicted panel (S/P/Bld)Ordered By: Abner Roa on 03-05-2022 Creatinine [Mass/Vol] 0.93 mg/dL 0.44-1.03 [facility] Eosinophils Auto (Bld) [#/Vo l]Ordered By: Abner Roa on 03-05-2022 Eosinophils (Bld) [#/Vol] 0.1 10*3/uL 0.0-0.45 [facility] Eosinophils/100 WBC Auto (Bl d)Ordered By: Abner Roa on 03-05-2022 Eosinophils/100 WBC (Bld) 1.4 % . [facility] Erythrocyte distribution wid th Auto (RBC) [Ratio]Ordered By: Abner Roa on 03-05-2022 Erythrocyte distribution width (RBC) [Ratio] 14.3 % 11.9-15.3 [facility] Estimated glomerular filtrat ion rate (GFR) non- AmericanOrdered By: Abner Roa on 03-05-2022 GFR/1.73 sq M.predicted among non-blacks MDRD (S/P/Bld) [Vol rate/Area] 60 mL/Min [facility] Hematocrit Auto (Bld) [Volum e fraction]Ordered By: Abner Roa on 03-05-2022 Hematocrit (Bld) [Volume fraction] 35.6 % 34.0-46.4 [facility] - Hematology and Cell countsOrdered By: Abner Roa on 03-05-2022 Nucleated RBC/100 WBC (Bld) [Ratio] 0.0 % 0-0.5 [facility] Lymphocytes Auto (Bld) [#/Vo l]Ordered By: Abner Roa on 03-05-2022 Lymphocytes (Bld) [#/Vol] 1.4 10*3/uL 1.00-4.8 [facility] Lymphocytes/100 WBC Auto (Bl d)Ordered By: Abner Roa on 03-05-2022 Lymphocytes/100 WBC (Bld) 15.4 % . [facility] MCH Auto (RBC) [Entitic mass ]Ordered By: Abner Roa on 03-05-2022 MCH (RBC) [Entitic mass] 30.4 pg 24.7-34.3 [facility] MCHC Auto (RBC) [Mass/Vol]Or dered By: Abner Roa on 03-05-2022 MCHC (RBC) [Mass/Vol] 33.2 g/dL 32.0-35.0 [facility] MCV Auto (RBC) [Entitic vol] Ordered By: Abner Roa on 03-05-2022 MCV (RBC) [Entitic vol] 91.7 fL 80-100 [facility] Monocytes Auto (Bld) [#/Vol] Ordered By: Abner Roa on 03-05-2022 Monocytes (Bld) [#/Vol] 0.8 10*3/uL 0.0-0.8 [facility] Monocytes/100 WBC Auto (Bld) Ordered By: Abner Roa on 03-05-2022 Monocytes/100 WBC (Bld) 9.2 % . [facility] Neutrophils Auto (Bld) [#/Vo l]Ordered By: Abner Roa on 03-05-2022 Neutrophils (Bld) [#/Vol] 6.8 10*3/uL 1.8-7.7 [facility] Neutrophils/100 WBC Auto (Bl d)Ordered By: Abner Roa on 03-05-2022 Neutrophils/100 WBC (Bld) 73.6 % . [facility] No Panel InformationOrdered By: Abner Roa on 03-05-2022 Estimated GFR () > 60 mL/Min [facility] Comment on above: GFR estimated refere nce range: According to KDOQI guidelines, <60 ml/min/1.73m2 is sufficient to diagnose a patient with chronic kidney disease. Pharmacy Creatinine Clearance (Chem N/A [facility] Platelet mean volume Auto (B ld) [Entitic vol]Ordered By: Abner Roa on 03-05-2022 Platelet mean volume (Bld) [Entitic vol] 7.5 fL 6.3-10.7 [facility] Platelets Auto (Bld) [#/Vol] Ordered By: Abner Roa on 03-05-2022 Platelets (Bld) [#/Vol] 285 10*3/uL 150-450 [facility] RBC Auto (Bld) [#/Vol]Ordere d By: Abner Roa on 03-05-2022 RBC (Bld) [#/Vol] 3.88 10*6/uL 3.60-5.00 [facility] Serum or plasma anion gap de terminationOrdered By: Abner Roa on 03-05-2022 Anion gap [Moles/Vol] 14.8 mmol/L 6.0-15.0 [facility] Serum or plasma calcium annabel urement (mass/volume)Ordered By: Abner Roa on 03-05-2022 Calcium [Mass/Vol] 10.1 mg/dL 8.2-10.2 [facility] Serum or plasma chloride meagan surement (moles/volume)Ordered By: Abner Roa on 03-05-2022 Chloride [Moles/Vol] 99 mmol/L 95-114 [facility] Serum or plasma glucose annabel urement (mass/volume)Ordered By: Abner Roa on 03-05-2022 Glucose [Mass/Vol] 206 mg/dL 70-100 [facility] Comment on above: ADA recommended refe rence rangeRandom Glucose Reference Range is dependent on time and content of last meal. Glucose of more than 200 mg/dL in a nonstressed, ambulatory subject supports the diagnosis of Diabetes Mellitus. Serum or plasma potassium me asurement (moles/volume)Ordered By: Abner Roa on 03-05-2022 Potassium [Moles/Vol] 4.5 mmol/L 3.5-5.1 [facility] Serum or plasma sodium measu rement (moles/volume)Ordered By: Abner Roa on 03-05-2022 Sodium [Moles/Vol] 136 mmol/L 136-146 [facility] Serum or plasma total carbon dioxide measurement (moles/volume)Ordered By: Abner Roa on 03-05-2022 CO2 [Moles/Vol] 26.7 mmol/L 22.0-30.0 [facility] Serum or plasma urea nitroge n measurement (mass/volume)Ordered By: Abner Roa on 03-05-2022 Urea nitrogen [Mass/Vol] 20 mg/dL 9-23 [facility] Vital Signs Date Time Vital Sign Value Performing Clinician Facility 03-02-2025 09:28-0400 Body height 157.5 cm Abraham Cesar MD Work Phone: [facility] 03-02-2025 09:28-0400 Body mass index (BMI) [Ratio] 40.06 kg/m2 Abraham Cesar MD Work Phone: [facility] 03-02-2025 09:28-0400 Body weight 99.34 kg Abraham Cesar MD Work Phone: [facility] 03-02-2025 09:28-0400 Diastolic blood pressure 66 mm[Hg] Abraham Cesar MD Work Phone: [facility] 03-02-2025 09:28-0400 Heart rate 85 /min Abraham Cesar MD Work Phone: [facility] 03-02-2025 09:28-0400 SaO2% (BldA) [Mass fraction] 100 % Abraham Cesar MD Work Phone: [facility] 03-02-2025 09:28-0400 Systolic blood pressure 112 mm[Hg] Abraham Cesar MD Work Phone: [facility] 02-11-2025 10:51-0400 Body height 157.5 cm Abraham Cesar MD Work Phone: [facility] 02-11-2025 10:51-0400 Body mass index (BMI) [Ratio] 38.04 kg/m2 Abraham Cesar MD Work Phone: [facility] 02-11-2025 10:51-0400 Body weight 94.35 kg Abraham Cesar MD Work Phone: [facility] 02-11-2025 10:51-0400 Diastolic blood pressure 68 mm[Hg] Abraham Cesar MD Work Phone: [facility] 02-11-2025 10:51-0400 Heart rate 60 /min Abraham Cesar MD Work Phone: [facility] 02-11-2025 10:51-0400 SaO2% (BldA) [Mass fraction] 98 % Abraham Cesar MD Work Phone: [facility] 02-11-2025 10:51-0400 Systolic blood pressure 122 mm[Hg] Abraham Cesar MD Work Phone: [facility] 12-31-2024 10:42-0400 Body height 158.5 cm Nati Hemmer PA Work Phone: [facility] 12-31-2024 10:42-0400 Body mass index (BMI) [Ratio] 37.99 kg/m2 Nati Hemmer PA Work Phone: [facility] 12-31-2024 10:42-0400 Body weight 95.44 kg Nati Hemmer PA Work Phone: [facility] 12-31-2024 10:42-0400 Diastolic blood pressure 64 mm[Hg] Nati Hemmer PA Work Phone: [facility] 12-31-2024 10:42-0400 Heart rate 78 /min Nati Hemmer PA Work Phone: [facility] 12-31-2024 10:42-0400 Respiratory rate 16 /min Nati Hemmer PA Work Phone: [facility] 12-31-2024 10:42-0400 SaO2% (BldA) [Mass fraction] 96 % Nati Hemmer PA Work Phone: [facility] 12-31-2024 10:42-0400 Systolic blood pressure 116 mm[Hg] Nati Hemmer PA Work Phone: [facility] 12-23-2024 09:27-0400 Body height 158.5 cm Abraham Cesar MD Work Phone: [facility] 12-23-2024 09:27-0400 Body mass index (BMI) [Ratio] 37.38 kg/m2 Abraham Cesar MD Work Phone: [facility] 12-23-2024 09:27-0400 Body weight 93.89 kg Abraham Cesar MD Work Phone: [facility] 12-23-2024 09:27-0400 Diastolic blood pressure 82 mm[Hg] Abraham Cesar MD Work Phone: [facility] 12-23-2024 09:27-0400 Heart rate 83 /min Abraham Cesar MD Work Phone: [facility] 12-23-2024 09:27-0400 SaO2% (BldA) [Mass fraction] 96 % Abraham Cesar MD Work Phone: [facility] 12-23-2024 09:27-0400 Systolic blood pressure 130 mm[Hg] Abraham Cesar MD Work Phone: [facility] 12-07-2024 13:23-0400 Body height 158.5 cm Narinder Meredith DPM Work Phone: [facility] 12-07-2024 13:23-0400 Body mass index (BMI) [Ratio] 34.49 kg/m2 Narinder Meredith DPM Work Phone: [facility] 12-07-2024 13:23-0400 Body weight 86.64 kg Narinder Meredith DPM Work Phone: [facility] 12-07-2024 13:23-0400 Respiratory rate 18 /min Narinder Meredith DPM Work Phone: [facility] 11-29-2024 10:54-0400 Body height 157.48 cm Abraham Cesar II Work Phone: [facility] 11-29-2024 10:54-0400 Body mass index (BMI) [Ratio] 38.4 kg/m2 Abraham Cesar II Work Phone: [facility] 11-29-2024 10:54-0400 Body weight 95.25 kg Abraham Cesar II Work Phone: [facility] 11-29-2024 10:35-0400 Body temperature 98.2 [degF] Abraham Cesar II Work Phone: [facility] 11-29-2024 10:35-0400 Diastolic blood pressure 75 mm[Hg] Abraham Cesar II Work Phone: [facility] 11-29-2024 10:35-0400 Heart rate 78 /min Abraham Cesar II Work Phone: [facility] 11-29-2024 10:35-0400 Respiratory rate 18 /min Abraham Cesar II Work Phone: [facility] 11-29-2024 10:35-0400 Systolic blood pressure 123 mm[Hg] Abraham Cesar II Work Phone: [facility] 10-21-2024 11:53-0400 Body weight 92.7 kg Abraham Cesar II Work Phone: [facility] 10-13-2024 12:12-0400 Body height 158.5 cm Abraham Cesar MD Work Phone: [facility] 10-13-2024 12:12-0400 Body mass index (BMI) [Ratio] 34.49 kg/m2 Abraham Cesar MD Work Phone: [facility] 10-13-2024 12:12-0400 Body weight 86.64 kg Abraham Cesar MD Work Phone: [facility] 10-13-2024 12:12-0400 Diastolic blood pressure 66 mm[Hg] Abraham Cesar MD Work Phone: [facility] 10-13-2024 12:12-0400 Heart rate 84 /min Abraham Cesar MD Work Phone: [facility] 10-13-2024 12:12-0400 Respiratory rate 16 /min Abraham Cesar MD Work Phone: [facility] 10-13-2024 12:12-0400 SaO2% (BldA) [Mass fraction] 96 % Abraham Cesar MD Work Phone: [facility] 10-13-2024 12:12-0400 Systolic blood pressure 132 mm[Hg] Abraham Cesar MD Work Phone: [facility] 10-11-2024 10:35-0400 Body height 157.48 cm Abraham Cesar II Work Phone: [facility] 10-11-2024 10:35-0400 Body mass index (BMI) [Ratio] 38.4 kg/m2 Abraham Cesar II Work Phone: [facility] 10-11-2024 10:35-0400 Body weight 95.25 kg Abraham Cesar II Work Phone: [facility] 10-11-2024 10:26-0400 Body temperature 97.2 [degF] Abraham Cesar II Work Phone: [facility] 10-11-2024 10:26-0400 Diastolic blood pressure 60 mm[Hg] Abraham Cesar II Work Phone: [facility] 10-11-2024 10:26-0400 Heart rate 62 /min Abraham Cesar II Work Phone: [facility] 10-11-2024 10:26-0400 Respiratory rate 18 /min Abraham Cesar II Work Phone: [facility] 10-11-2024 10:26-0400 Systolic blood pressure 134 mm[Hg] Abraham Cesar II Work Phone: [facility] 09-21-2024 10:50-0400 Body height 158.5 cm Narinder Brown DPM Work Phone: [facility] 09-21-2024 10:50-0400 Body mass index (BMI) [Ratio] 37.92 kg/m2 Narinder Brown DPM Work Phone: [facility] 09-21-2024 10:50-0400 Body weight 95.25 kg Narinder Brown DPM Work Phone: [facility] 09-21-2024 10:50-0400 Respiratory rate 18 /min Narinder Brown DPM Work Phone: [facility] 09-13-2024 13:16-0400 Body height 158.5 cm Nati BABB Work Phone: [facility] 09-13-2024 13:16-0400 Body mass index (BMI) [Ratio] 38.03 kg/m2 Nati BABB Work Phone: [facility] 09-13-2024 13:16-0400 Body weight 95.53 kg Nati Hemmer PA Work Phone: [facility] 09-13-2024 13:16-0400 Diastolic blood pressure 70 mm[Hg] Nati Hemmer PA Work Phone: [facility] 09-13-2024 13:16-0400 Heart rate 52 /min Nati Hemmer PA Work Phone: [facility] 09-13-2024 13:16-0400 Respiratory rate 16 /min Nati Hemmer PA Work Phone: [facility] 09-13-2024 13:16-0400 SaO2% (BldA) [Mass fraction] 99 % Nati Hemmer PA Work Phone: [facility] 09-13-2024 13:16-0400 Systolic blood pressure 118 mm[Hg] Nati Hemmer PA Work Phone: [facility] 09-03-2024 11:24-0400 Body height 158.5 cm Abraham Cesar MD Work Phone: [facility] 09-03-2024 11:24-0400 Body mass index (BMI) [Ratio] 37.02 kg/m2 Abraham Cesar MD Work Phone: [facility] 09-03-2024 11:24-0400 Body weight 92.99 kg Abraham Cesar MD Work Phone: [facility] 09-03-2024 11:24-0400 Diastolic blood pressure 70 mm[Hg] Abraham Cesar MD Work Phone: [facility] 09-03-2024 11:24-0400 Heart rate 68 /min Abraham Cesar MD Work Phone: [facility] 09-03-2024 11:24-0400 SaO2% (BldA) [Mass fraction] 99 % Abraham Cesar MD Work Phone: [facility] 09-03-2024 11:24-0400 Systolic blood pressure 126 mm[Hg] Abraham Cesar MD Work Phone: [facility] 07-09-2024 15:00-0500 Diastolic blood pressure 66 mm[Hg] Luigi Nan [facility] 07-09-2024 15:00-0500 Heart rate 77 /min Luigi Nan [facility] 07-09-2024 15:00-0500 Hourly Rounding Luigi Nan [facility] 07-09-2024 15:00-0500 Mean blood pressure 84 mm[Hg] Luigi Nan [facility] 07-09-2024 15:00-0500 Promise to Return Luigi Nan [facility] 07-09-2024 15:00-0500 Respiratory rate 16 /min Luigi Nan [facility] 07-09-2024 15:00-0500 SaO2% (BldA) [Mass fraction] 94 % Luigi Nan [facility] 07-09-2024 15:00-0500 Systolic blood pressure 120 mm[Hg] Luigi Nan [facility] 07-09-2024 14:00-0500 Body temperature 98.42 [degF] Luigi Nan [facility] 07-09-2024 14:00-0500 Diastolic blood pressure 58 mm[Hg] Luigi Nan [facility] 07-09-2024 14:00-0500 Heart rate 80 /min Luigi Nan [facility] 07-09-2024 14:00-0500 Hourly Rounding Luigi Nan [facility] 07-09-2024 14:00-0500 Mean blood pressure 75 mm[Hg] Luigi Nan [facility] 07-09-2024 14:00-0500 Promise to Return Luigi Nan [facility] 07-09-2024 14:00-0500 Respiratory rate 19 /min Luigi Nan [facility] 07-09-2024 14:00-0500 Systolic blood pressure 109 mm[Hg] Luigi Nan [facility] 07-09-2024 13:00-0500 Diastolic blood pressure 55 mm[Hg] Luigi Nan [facility] 07-09-2024 13:00-0500 Heart rate 73 /min Luigi Nan [facility] 07-09-2024 13:00-0500 Hourly Rounding Luigi Nan [facility] 07-09-2024 13:00-0500 Mean blood pressure 69 mm[Hg] Luigi Nan [facility] 07-09-2024 13:00-0500 Promise to Return Luigi Nan [facility] 07-09-2024 13:00-0500 Respiratory rate 11 /min Luigi Nan [facility] 07-09-2024 13:00-0500 Systolic blood pressure 98 mm[Hg] Luigi Nan [facility] 07-09-2024 08:50-0500 Heart rate 70 /min Luigi Nan [facility] 07-09-2024 08:00-0500 Body temperature 98.06 [degF] Luigi Nan [facility] 07-08-2024 09:40-0500 Heart rate 63 /min Luigi Nan [facility] 07-07-2024 19:00-0500 Diastolic Blood Pressure Invasive 42 mm[Hg] Luigi Nan [facility] 07-07-2024 19:00-0500 Mean blood pressure 65 mm[Hg] Luigi Nan [facility] 07-07-2024 19:00-0500 Systolic blood pressure 105 mm[Hg] Luigi Nan [facility] 07-07-2024 18:26-0500 Diastolic Blood Pressure Invasive 43 mm[Hg] Luigi Nan [facility] 07-07-2024 18:26-0500 Mean blood pressure 58 mm[Hg] Luigi Nan [facility] 07-07-2024 18:26-0500 Systolic blood pressure 97 mm[Hg] Luigi Nan [facility] 07-07-2024 18:15-0500 Diastolic Blood Pressure Invasive 45 mm[Hg] Luigi Nan [facility] 07-07-2024 18:15-0500 Mean blood pressure 63 mm[Hg] Luigi Nan [facility] 07-07-2024 18:15-0500 Systolic blood pressure 104 mm[Hg] Luigi Nan [facility] 07-07-2024 15:45-0500 Respiratory rate 18 /min Luigi Nan [facility] 07-07-2024 15:30-0500 Respiratory rate 18 /min Luigi Nan [facility] 07-07-2024 15:15-0500 Respiratory rate 18 /min Luigi Nan [facility] 07-07-2024 14:53-0500 Heart rate 85 /min Luigi Montana [facility] 05-19-2024 11:08-0500 Diastolic blood pressure 49 mm[Hg] Abraham Cesar II Work Phone: [facility] 05-19-2024 11:08-0500 Heart rate 64 /min Abraham Cesar II Work Phone: [facility] 05-19-2024 11:08-0500 Respiratory rate 16 /min Abraham Cesar II Work Phone: [facility] 05-19-2024 11:08-0500 SaO2% (BldA) [Mass fraction] 94 % Abraham Cesar II Work Phone: [facility] 05-19-2024 11:08-0500 Systolic blood pressure 116 mm[Hg] Abraham Cesar II Work Phone: [facility] 05-19-2024 10:29-0500 Inhaled oxygen flow rate 4 L/min Abraham Cesar II Work Phone: [facility] 05-19-2024 09:43-0500 Body height 154.94 cm Abraham Cesar II Work Phone: [facility] 05-19-2024 09:43-0500 Body weight 99.33 kg Abraham Cesar II Work Phone: [facility] 05-17-2024 10:10-0500 Body weight 97.97 kg Abraham Cesar II Work Phone: [facility] 05-17-2024 10:10-0500 Diastolic blood pressure 70 mm[Hg] Abraham Cesar II Work Phone: [facility] 05-17-2024 10:10-0500 Heart rate 70 /min Abraham Cesar II Work Phone: [facility] 05-17-2024 10:10-0500 SaO2% (BldA) [Mass fraction] 98 % Abrahamjason Cesar II Work Phone: [facility] 05-17-2024 10:10-0500 Systolic blood pressure 120 mm[Hg] Abraham Cesar II Work Phone: [facility] 04-15-2024 16:01-0500 Body height 158.8 cm Narinder Meredith DPM Work Phone: [facility] 04-15-2024 16:01-0500 Body mass index (BMI) [Ratio] 42.48 kg/m2 Narinder Meredith DPM Work Phone: [facility] 04-15-2024 16:01-0500 Body weight 107.05 kg Narinder Meredith DPM Work Phone: [facility] 04-15-2024 16:01-0500 Diastolic blood pressure 75 mm[Hg] Narinder Meredith DPM Work Phone: [facility] 04-15-2024 16:01-0500 Heart rate 82 /min Narinder Meredith DPM Work Phone: [facility] 04-15-2024 16:01-0500 Systolic blood pressure 123 mm[Hg] Narinder Meredith DPM Work Phone: [facility] 04-08-2024 11:27-0400 Body height 162.56 cm [facility] 04-08-2024 11:27-0400 Body mass index (BMI) [Ratio] 41.4 kg/m2 [facility] 04-08-2024 11:27-0400 Body weight 109.54 kg [facility] 04-02-2024 11:01-0400 Body height 158.8 cm Abraham Cesar MD Work Phone: [facility] 04-02-2024 11:01-0400 Body mass index (BMI) [Ratio] 42.48 kg/m2 Abraham Cesar MD Work Phone: [facility] 04-02-2024 11:01-0400 Body weight 107.05 kg Abraham Cesar MD Work Phone: [facility] 04-02-2024 11:01-0400 Diastolic blood pressure 78 mm[Hg] Abraham Cesar MD Work Phone: [facility] 04-02-2024 11:01-0400 Heart rate 68 /min Abraham Cesar MD Work Phone: [facility] 04-02-2024 11:01-0400 SaO2% (BldA) [Mass fraction] 98 % Abraham Cesar MD Work Phone: [facility] 04-02-2024 11:01-0400 Systolic blood pressure 128 mm[Hg] Abraham Cesar MD Work Phone: [facility] 03-29-2024 14:08-0400 Diastolic blood pressure 76 mm[Hg] Nati Hemmer PA Work Phone: [facility] 03-29-2024 14:08-0400 Systolic blood pressure 138 mm[Hg] Nati Hemmer PA Work Phone: [facility] 03-29-2024 13:50-0400 Body height 158.8 cm Nati Hemmer PA Work Phone: [facility] 03-29-2024 13:50-0400 Body mass index (BMI) [Ratio] 42.55 kg/m2 Nati Hemmer PA Work Phone: [facility] 03-29-2024 13:50-0400 Body weight 107.23 kg Nati Hemmer PA Work Phone: [facility] 03-29-2024 13:50-0400 Heart rate 64 /min Nati Hemmer PA Work Phone: [facility] 03-29-2024 13:50-0400 Respiratory rate 16 /min Nati Hemmer PA Work Phone: [facility] 03-29-2024 13:50-0400 SaO2% (BldA) [Mass fraction] 98 % Nati Hemmer PA Work Phone: [facility] 03-15-2024 09:15-0400 Diastolic blood pressure 85 mm[Hg] Abraham Cesar MD Work Phone: [facility] 03-15-2024 09:15-0400 Heart rate 50 /min Abraham Cesar MD Work Phone: [facility] 03-15-2024 09:15-0400 Respiratory rate 17 /min Abraham Cesar MD Work Phone: [facility] 03-15-2024 09:15-0400 SaO2% (BldA) [Mass fraction] 98 % Abraham Cesar MD Work Phone: [facility] 03-15-2024 09:15-0400 Systolic blood pressure 130 mm[Hg] Abraham Cesar MD Work Phone: [facility] 03-01-2024 11:31-0400 Body height 158.8 cm Abraham Cesar MD Work Phone: [facility] 03-01-2024 11:31-0400 Body mass index (BMI) [Ratio] 41.94 kg/m2 Abraham Cesar MD Work Phone: [facility] 03-01-2024 11:31-0400 Body weight 105.69 kg Abraham Cesar MD Work Phone: [facility] 03-01-2024 11:31-0400 Diastolic blood pressure 78 mm[Hg] Abraham Cesar MD Work Phone: [facility] 03-01-2024 11:31-0400 Heart rate 82 /min Abraham Cesar MD Work Phone: [facility] 03-01-2024 11:31-0400 SaO2% (BldA) [Mass fraction] 96 % Abraham Cesar MD Work Phone: [facility] 03-01-2024 11:31-0400 Systolic blood pressure 142 mm[Hg] Abraham Cesar MD Work Phone: [facility] 02-05-2024 15:16-0400 Body height 158.8 cm Narinder Meredith DPM Work Phone: [facility] 02-05-2024 15:16-0400 Body mass index (BMI) [Ratio] 42.3 kg/m2 Narinder Meredith DPM Work Phone: [facility] 02-05-2024 15:16-0400 Body weight 106.59 kg Narinder Meredith DPM Work Phone: [facility] 02-05-2024 15:16-0400 Diastolic blood pressure 82 mm[Hg] Narinder Meredith DPM Work Phone: [facility] 02-05-2024 15:16-0400 Heart rate 89 /min Narinder Meredith DPM Work Phone: [facility] 02-05-2024 15:16-0400 Systolic blood pressure 129 mm[Hg] Narinder Meredith DPM Work Phone: [facility] 01-08-2024 10:56-0400 Diastolic blood pressure 67 mm[Hg] Rachelle Contreras MD [facility] 01-08-2024 10:56-0400 Systolic blood pressure 155 mm[Hg] Rachelle Contreras MD [facility] 12-15-2023 11:12-0400 Body height 158.1 cm Casey العلي MD Work Phone: [place] 12-15-2023 11:12-0400 Body mass index (BMI) [Ratio] 41 kg/m2 Casey العلي MD Work Phone: [facility] 12-15-2023 11:12-0400 Body weight 102.51 kg Casey العلي MD Work Phone: [facility] 12-15-2023 11:12-0400 Diastolic blood pressure 71 mm[Hg] Casey العلي MD Work Phone: [facility] 12-15-2023 11:12-0400 Heart rate 86 /min Casey العلي MD Work Phone: [facility] 12-15-2023 11:12-0400 Systolic blood pressure 135 mm[Hg] Casey العلي MD Work Phone: [facility] 10-23-2023 10:33-0400 Body height 162.56 cm II Abraham Cesar Work Phone: [facility] 10-23-2023 10:33-0400 Body mass index (BMI) [Ratio] 38.6 kg/m2 II Abraham Cesar Work Phone: [facility] 10-23-2023 10:33-0400 Body weight 102 kg II Abraham Cesar Work Phone: [facility] 08-19-2023 11:27-0400 Body height 157.5 cm Robbi Uribe MD Work Phone: [facility] 08-19-2023 11:27-0400 Body mass index (BMI) [Ratio] 41.15 kg/m2 Robbi Uribe MD Work Phone: [facility] 08-19-2023 11:27-0400 Body weight 102.06 kg Robbi Uribe MD Work Phone: [facility] 08-19-2023 11:27-0400 Diastolic blood pressure 58 mm[Hg] Robbi Uribe MD Work Phone: [facility] 08-19-2023 11:27-0400 Heart rate 63 /min Robbi Uribe MD Work Phone: [facility] 08-19-2023 11:27-0400 Systolic blood pressure 149 mm[Hg] Robbi Uribe MD Work Phone: [facility] 07-21-2023 10:26-0500 Body height 158.8 cm Abraham Cesar MD Work Phone: [facility] 07-21-2023 10:26-0500 Body mass index (BMI) [Ratio] 41.22 kg/m2 Abraham Cesar MD Work Phone: [facility] 07-21-2023 10:26-0500 Body weight 103.87 kg Abraham Cesar MD Work Phone: [facility] 07-21-2023 10:26-0500 Diastolic blood pressure 82 mm[Hg] Abraham Cesar MD Work Phone: [facility] [employer] 07-21-2023 10:26-0500 Heart rate 66 /min Abraham eCsar MD Work Phone: [facility] [employer] 07-21-2023 10:26-0500 SaO2% (BldA) [Mass fraction] 98 % Abraham Cesar MD Work Phone: [facility] [employer] 07-21-2023 10:26-0500 Systolic blood pressure 136 mm[Hg] Abraham Cesar MD Work Phone: [facility] [employer] 03-13-2023 10:20-0400 Body height 162.56 cm Abner Roa Other [employer] Other 03-13-2023 10:20-0400 Body mass index (BMI) [Ratio] 45.83 kg/m2 Abner Roa Other [employer] Other 03-13-2023 10:20-0400 Body weight 121.11 kg Abner Roa Other [employer] Other 09-12-2022 10:40-0400 Body height 162.56 cm Abner Roa Other [employer] Other 09-12-2022 10:40-0400 Body mass index (BMI) [Ratio] 42.05 kg/m2 Abner Roa Other [employer] Other 09-12-2022 10:40-0400 Body weight 111.13 kg Abner Roa Other [employer] Other 09-12-2022 10:40-0400 Diastolic blood pressure 80 mm[Hg] Abner Roa Other [employer] Other 09-12-2022 10:40-0400 Systolic blood pressure 128 mm[Hg] Abner Roa Other [employer] Other 06-13-2022 16:20-0500 Body height 162.56 cm Abner Roa Other [place] [employer] Other 06-13-2022 16:20-0500 Body mass index (BMI) [Ratio] 42.91 kg/m2 Abner Roa Other [facility] Other 06-13-2022 16:20-0500 Body weight 113.4 kg Abenr Roa Other [facility] Other 04-18-2022 12:00-0500 Body height 162.56 cm Abner Roa Other [place] [employer] Other 04-18-2022 12:00-0500 Body mass index (BMI) [Ratio] 42.74 kg/m2 Abner Roa Other [facility] Other 04-18-2022 12:00-0500 Body weight 112.95 kg Abner Roa Other [place] [employer] Other 04-03-2022 13:01-0400 Body temperature 97.7 [degF] II Abraham Cesar Work Phone: [facility] 04-03-2022 13:01-0400 Diastolic blood pressure 66 mm[Hg] II Abraham Cesar Work Phone: [facility] 04-03-2022 13:01-0400 Heart rate 61 /min II Abraham Cesar Work Phone: [facility] 04-03-2022 13:01-0400 Respiratory rate 20 /min II Abraham Cesar Work Phone: [facility] 04-03-2022 13:01-0400 SaO2% (BldA) [Mass fraction] 96 % II Abraham Cesar Work Phone: [facility] 04-03-2022 13:01-0400 Systolic blood pressure 149 mm[Hg] II Abraham Cesar Work Phone: [facility] 04-03-2022 07:05-0400 Body height 160.02 cm II Abraham Cesar Work Phone: [facility] 03-31-2022 06:02-0400 Body weight 115.1 kg II Abraham Cesar Work Phone: [facility] 03-22-2022 14:02-0400 Diastolic blood pressure 73 mm[Hg] II Abraham Cesar Work Phone: [facility] 03-22-2022 14:02-0400 Systolic blood pressure 134 mm[Hg] II Abraham Cesar Work Phone: [facility] 03-22-2022 11:12-0400 Body temperature 97.6 [degF] II Abraham Cesar Work Phone: [facility] 03-22-2022 11:12-0400 Heart rate 66 /min II Abraham Cesar Work Phone: [facility] 03-22-2022 11:12-0400 Respiratory rate 16 /min II Abraham Cesar Work Phone: [facility] 03-22-2022 11:12-0400 SaO2% (BldA) [Mass fraction] 95 % II Abraham Cesar Work Phone: [facility] 03-22-2022 06:41-0400 Body weight 116 kg II Abraham Cesar Work Phone: [facility] 03-20-2022 17:30-0400 Inhaled oxygen flow rate 2 L/min II Abraham Cesar Work Phone: [facility] 03-19-2022 09:55-0400 Body height 160.02 cm II Abraham Cesar Work Phone: [facility] 03-18-2022 08:15-0400 Body mass index (BMI) [Ratio] 44.5 kg/m2 II Abraham Cesar Work Phone: [facility] 01-15-2022 14:40-0400 Body height 162.56 cm Abner Roa Other [employer] Other 01-15-2022 14:40-0400 Body mass index (BMI) [Ratio] 42.74 kg/m2 Abner Roa Other [employer] Other 01-15-2022 14:40-0400 Body weight 112.95 kg Abner Roa Other [employer] Other 12-07-2021 12:30-0400 Body height 162.56 cm Devang Saavedra Other [employer] Other 12-07-2021 12:30-0400 Body mass index (BMI) [Ratio] 42.74 kg/m2 Devang Saavedra Other [employer] Other 12-07-2021 12:30-0400 Body weight 112.95 kg Devang Saavedra Other [employer] Other 12-07-2021 12:30-0400 Diastolic blood pressure 76 mm[Hg] Devang Saavedra Other [employer] Other 12-07-2021 12:30-0400 Systolic blood pressure 132 mm[Hg] Devang Saavedra Other [employer] Other 12-06-2021 16:00-0400 Body height 162.56 cm Abner Roa Other [employer] Other 12-06-2021 16:00-0400 Body mass index (BMI) [Ratio] 43.59 kg/m2 Abner Roa Other [employer] Other 12-06-2021 16:00-0400 Body weight 115.21 kg Abner Roa Other [employer] Other 11-08-2021 17:15-0400 Body weight 115.21 kg Devang Saavedra Other [employer] Other 11-08-2021 17:15-0400 Diastolic blood pressure 72 mm[Hg] Devang Keri Other [employer] Other 11-08-2021 17:15-0400 SaO2% (BldA) [Mass fraction] 98 % Devangolga Saavedra Other [employer] Other 11-08-2021 17:15-0400 Systolic blood pressure 136 mm[Hg] Devang Keri Other [employer] Other 10-24-2021 17:15-0400 Body weight 115.21 kg Devangolga Saavedra Other [employer] Other 10-24-2021 17:15-0400 Diastolic blood pressure 70 mm[Hg] Devang Keri Other [employer] Other 10-24-2021 17:15-0400 Systolic blood pressure 116 mm[Hg] Devang Keri Other [employer] Other 10-15-2021 11:45-0400 Body weight 120.57 kg Devang Keri Other [employer] Other 10-15-2021 11:45-0400 Diastolic blood pressure 66 mm[Hg] Devang Keri Other [employer] Other 10-15-2021 11:45-0400 SaO2% (BldA) [Mass fraction] 93 % Devang Saavedra Other [employer] Other 10-15-2021 11:45-0400 Systolic blood pressure 124 mm[Hg] Devang Saavedra Other [employer] Other 09-25-2021 11:30-0400 Body weight 121.47 kg Devang Saavedra Other [employer] Other 09-25-2021 11:30-0400 Diastolic blood pressure 62 mm[Hg] Devang Saavedra Other [employer] Other 09-25-2021 11:30-0400 SaO2% (BldA) [Mass fraction] 97 % Devang Saavedra Other [employer] Other 09-25-2021 11:30-0400 Systolic blood pressure 138 mm[Hg] Devang Saavedra Other [employer] Other Encounters Encounter Date Encounter Type Care Provider Facility Start: 03-02-2025 End: 03-02-2025 AfterYesheet Abraham Cesar MD Work Phone: [facility] Start: 03-02-2025 End: 03-02-2025 AfterYeseddie Cesar MD Work Phone: [facility] Start: 03-02-2025 End: 03-02-2025 Office outpatient visit 25 minutes Abraham Cesar MD Work Phone: [facility] Comment on above: Chronic systolic con gestive heart failure (HCC); Reduced mobility; Type 2 diabetes mellitus with diabetic polyneuropathy, with long-term current use of insulin (HCC); Paroxysmal atrial fibrillation (HCC) Start: 03-02-2025 End: 03-02-2025 ambulatory ABRAHAM CESAR Not Available Start: 03-01-2025 ambulatory Molly Gallegos Facility [facility] Start: 02-14-2025 ambulatory [facility] Start: 02-14-2025 Encounter for preprocedural cardiovascular examination [facility] Start: 02-14-2025 End: 02-23-2025 Clinisync Result Encounter Generic External Data Provider [facility] External Department Unsolicited Start: 02-14-2025 End: 02-23-2025 Clinisync Result Encounter Generic External Data Provider [facility] External Department Unsolicited Start: 02-11-2025 End: 02-11-2025 Office outpatient visit 25 minutes Abraham Cesar MD Work Phone: [facility] Comment on above: Type 2 diabetes kwasi itus with diabetic polyneuropathy, with long-term current use of insulin ([facility]) Start: 02-11-2025 End: 02-11-2025 ambulatory ABRAHAM CESAR Not Available Start: 02-04-2025 [facility] Start: 01-20-2025 ambulatory [facility] Start: 01-18-2025 End: 01-18-2025 ambulatory [facility] Start: 01-14-2025 End: 01-14-2025 Clinisync Result Encounter Generic External Data Provider [facility] External Department Unsolicited Start: 01-14-2025 End: 01-14-2025 Clinisync Result Encounter Generic External Data Provider [facility] External Department Unsolicited Start: 12-31-2024 End: 12-31-2024 Bamboo flowsheet Nati BABB Work Phone: [facility] Start: 12-31-2024 End: 12-31-2024 Bamboo flowsheet Nati Virk PA Work Phone: [facility] Start: 12-31-2024 End: 12-31-2024 Office outpatient visit 25 minutes Nati BABB Work Phone: [facility] Comment on above: Cellulitis of finger of right hand (Primary Dx); Blister of toe of right foot, initial encounter; Peripheral venous insufficiency; Chronic systolic congestive heart failure (HCC); Dilated cardiomyopathy (HCC) Start: 12-31-2024 End: 12-31-2024 ambulatory NATI VIRK Not Available Start: 12-23-2024 End: 12-23-2024 Bamboo flowsheet Abraham Cesar MD Work Phone: [facility] Start: 12-23-2024 End: 12-23-2024 Bamboo flowsheet Abraham Cesar MD Work Phone: [facility] Start: 12-23-2024 End: 12-23-2024 ambulatory ABRAHAM CESAR Not Available Start: 12-23-2024 End: 12-23-2024 Office outpatient visit 25 minutes Abraham Cesar MD Work Phone: [facility] Comment on above: Type 2 diabetes kwasi itus with diabetic polyneuropathy, with long-term current use of insulin (HCC) (Primary Dx); Chronic systolic congestive heart failure (HCC); Muscle weakness (generalized); Peripheral venous insufficiency; Cellulitis of finger of right hand; Ataxia Start: 12-20-2024 End: 12-20-2024 ambulatory NIRALI [facility] Start: 12-20-2024 End: 12-20-2024 Clinisync Result Encounter Generic External Data Provider NOMS External Department Unsolicited Start: 12-20-2024 End: 12-20-2024 Clinisync Result Encounter Generic External Data Provider NOMS External Department Unsolicited Start: 12-15-2024 End: 12-15-2024 Clinisync Result Encounter Generic External Data Provider NOMS External Department Unsolicited Start: 12-15-2024 End: 12-15-2024 Clinisync Result Encounter Generic External Data Provider NOMS External Department Unsolicited Start: 12-14-2024 End: 12-14-2024 Clinisync Result Encounter Generic External Data Provider NOMS External Department Unsolicited Start: 12-14-2024 End: 12-14-2024 Clinisync Result Encounter Generic External Data Provider NOMS External Department Unsolicited Start: 12-13-2024 ambulatory [facility] Start: 12-13-2024 End: 12-13-2024 ambulatory [facility] Start: 12-08-2024 End: 12-08-2024 Clinisync Result Encounter Generic External Data Provider NOMS External Department Unsolicited Start: 12-08-2024 End: 12-08-2024 Clinisync Result Encounter Generic External Data Provider NOMS External Department Unsolicited Start: 12-07-2024 End: 12-07-2024 Bamboo flowsheet Narinder Meredith DPM Work Phone: [facility] Start: 12-07-2024 End: 12-07-2024 Bamboo flowsheet Narinder Meredith DPM Work Phone: [facility] Start: 12-07-2024 End: 12-07-2024 ambulatory NARINDER MEREDITH Not Available Start: 12-07-2024 End: 12-07-2024 Patient encounter procedure Narinder Meredith DPM Work Phone: [facility] Comment on above: Diabetes mellitus du e to underlying condition with diabetic polyneuropathy, without long-term current use of insulin (HCC) (Primary Dx); Pain due to onychomycosis of toenails of both feet; Peripheral venous insufficiency Start: 12-07-2024 End: 12-07-2024 Patient encounter procedure Molly Dunn APRN -Ultrasound [place] Work Phone: Start: 12-07-2024 End: 12-07-2024 ambulatory Abarham Cesar II Work Phone: [facility] Work Phone: Start: 11-30-2024 Office outpatient vi sit 25 minutes Hemant Estrella [facility] Start: 11-30-2024 ambulatory Hemant Estrella [facility] [place] Start: 11-29-2024 Registered Recurring Molly Dunn APRN -[facility] [place] Work Phone: Start: 11-22-2024 End: 11-22-2024 Clinisync Result Encounter Generic External Data Provider NOMS External Department Unsolicited Start: 11-22-2024 End: 11-22-2024 Clinisync Result Encounter Generic External Data Provider NOMS External Department Unsolicited Start: 11-17-2024 End: 11-17-2024 Clinisync Result Encounter Generic External Data Provider NOMS External Department Unsolicited Start: 11-17-2024 End: 11-17-2024 Clinisync Result Encounter Generic External Data Provider NOMS External Department Unsolicited Start: 11-09-2024 End: 11-09-2024 ambulatory [facility] Start: 10-21-2024 End: 10-21-2024 Clinisync Result Encounter Generic External Data Provider NOMS External Department Unsolicited Start: 10-21-2024 End: 10-21-2024 Clinisync Result Encounter Generic External Data Provider NOMS External Department Unsolicited Start: 10-21-2024 End: 10-21-2024 Patient encounter procedure Abraham Cesar II Work Phone: [facility] Work Phone: Start: 10-21-2024 End: 10-21-2024 ambulatory Abraham Cesar II Work Phone: [facility] Work Phone: Start: 10-13-2024 End: 10-13-2024 Bamboo flowsheet Abraham Cesar MD Work Phone: [facility] Start: 10-13-2024 End: 10-13-2024 Bamboo flowseddie Cesar MD Work Phone: [facility] Start: 10-13-2024 End: 10-13-2024 Assay of hemosiderin, quant Abraham Cesar MD Work Phone: [facility] Work Phone: Start: 10-13-2024 End: 10-13-2024 Patient encounter procedure Abraham Cesar MD Work Phone: [facility] Comment on above: Routine general [facility] (Primary Dx); ACP (advance care planning); Type 2 diabetes mellitus with diabetic polyneuropathy, with long-term current use of insulin ([facility]); Type 2 diabetes mellitus with hyperglycemia, with long-term current use of insulin ([facility]); Rheumatoid arthritis, unspecified; Estrogen deficiency; Breast screening Start: 10-13-2024 End: 10-13-2024 ambulatory ABRAHAM B MELBA Not Available Start: 10-11-2024 Registered Recurring Abraham lopez II Work Phone: [facility] [place] Work Phone: Start: 09-21-2024 End: 09-21-2024 Bamboo flowsheet Narinder Meredith DPM Work Phone: [facility] Start: 09-21-2024 End: 09-21-2024 Bamboo flowsheet Narinder Meredith DPM Work Phone: [facility] Start: 09-21-2024 End: 09-21-2024 Patient encounter procedure Narinder Meredith DPM Work Phone: [facility] Comment on above: Diabetes mellitus du e to underlying condition with diabetic polyneuropathy, without long-term current use of insulin ([facility]) (Primary Dx); Pain due to onychomycosis of toenails of both feet; Peripheral venous insufficiency Start: 09-21-2024 End: 09-21-2024 ambulatory NARINDER MEREDITH Not Available Start: 09-17-2024 End: 09-17-2024 Clinisync Result Encounter Generic External Data Provider NOMS External Department Unsolicited Start: 09-17-2024 End: 09-17-2024 Clinisync Result Encounter Generic External Data Provider NOMS External Department Unsolicited Start: 09-13-2024 End: 09-13-2024 Alexeyboo javed BABB Work Phone: [facility] Start: 09-13-2024 End: 09-13-2024 Bamboo flowseddie BABB Work Phone: [facility] Start: 09-13-2024 End: 09-13-2024 ambulatory NATI VIRK Not Available Start: 09-13-2024 End: 09-13-2024 Office outpatient visit 25 minutes Nati BABB Work Phone: [facility] Comment on above: Type 2 diabetes kwasi itus with diabetic polyneuropathy, with long-term current use of insulin (CMS/HCC) (Primary Dx); Chronic systolic congestive heart failure (CMS/HCC); 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, limited to breakdown of skin (CMS/HCC); Cellulitis of left lower extremity; Morbid obesity (CMS/HCC); Non compliance w medication regimen Start: 09-03-2024 End: 09-03-2024 AfterYesheet Abraham Cesar MD Work Phone: [facility] Start: 09-03-2024 End: 09-03-2024 AlexeyHydrocapsuleeddie Cesar MD Work Phone: [facility] Start: 09-03-2024 End: 09-03-2024 ambulatory [facility] Start: 09-03-2024 End: 09-03-2024 Office outpatient visit 25 minutes Abraham Cesar MD Work Phone: [facility] Comment on above: Type 2 diabetes kwasi itus with diabetic polyneuropathy, with long-term current use of insulin (CMS/HCC) (Primary Dx); Chronic systolic congestive heart failure (CMS/HCC); Muscle weakness (generalized); Peripheral venous insufficiency; 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, limited to breakdown of skin (CMS/HCC) ; Cellulitis of left lower extremity; Type 2 diabetes mellitus with other specified complication, with long-term current use of insulin ([facility]/HCC) Start: 09-03-2024 End: 09-03-2024 ambulatory ABRAHAM CESAR Not Available Start: 08-23-2024 ambulatory CAMPBELL KAY [facility] Start: 08-13-2024 End: 08-13-2024 ambulatory ABRAHAM CESAR Not Available Start: 08-06-2024 ambulatory SUZANNE CRAWLEY [facility] Start: 07-28-2024 End: 07-28-2024 Clinisync Result Encounter Generic External Data Provider NOMS External Department Unsolicited Start: 07-28-2024 End: 07-28-2024 Clinisync Result Encounter Generic External Data Provider NOMS External Department Unsolicited Start: 07-20-2024 End: 07-20-2024 Clinisync Result Encounter Carlos Joshi MD Work Phone: [facility] External Department Unsolicited Start: 07-20-2024 End: 07-20-2024 Clinisync Result Encounter Carlos Joshi MD Work Phone: [facility] External Department Unsolicited Start: 07-19-2024 End: 07-19-2024 ambulatory [facility] Start: 07-07-2024 Emergency department patient visit Markos Moreno Facility:[facility] Start: 07-07-2024 End: 07-09-2024 Evaluation and management of inpatient Luigi Montana Facility:[facility] Start: 06-13-2024 End: 06-15-2024 Clinisync Result Encounter Generic External Data Provider NOMS External Department Unsolicited Start: 06-13-2024 End: 06-15-2024 Clinisync Result Encounter Generic External Data Provider NOMS External Department Unsolicited Start: 06-13-2024 End: 06-13-2024 ambulatory Abraham Cesar II Work Phone: [facility] Work Phone: Start: 06-13-2024 End: 06-13-2024 Departed Referred Abraham Cesar II Work Phone: [facility] Start: 05-19-2024 Non-patient / Non-visit Abraham Cesar II Work Phone: [facility] Work Phone: Start: 05-19-2024 End: 05-19-2024 Admission to same day surgery center Abraham Cesar II Work Phone: [facility]-Digestive Health Work Phone: Start: 05-19-2024 End: 05-19-2024 ambulatory Devang Saavedra [facility] Start: 05-17-2024 End: 05-17-2024 Patient encounter procedure Abraham Cesar II Work Phone: [facility] Work Phone: Start: 05-12-2024 End: 05-12-2024 Patient encounter procedure [facility] F[facility] Ls Nurse [facility] Comment on above: Burning with urinati on Start: 05-12-2024 End: 05-12-2024 ambulatory ABRAHAM CESAR Not Available Start: 05-12-2024 End: 05-12-2024 Telephone encounter Nati BABB Work Phone: [facility] Start: 05-11-2024 [facility] Start: 05-03-2024 ambulatory CAMPBELL NEWBERRY [facility] Start: 04-27-2024 End: 04-28-2024 ambulatory [facility] Start: 04-22-2024 Evaluation and manag ement of inpatient MALINA Zamora [facility] Start: 04-21-2024 Evaluation and manag ement of inpatient [facility] Start: 04-20-2024 Evaluation and manag ement of inpatient [facility] Start: 04-20-2024 Evaluation and manag ement of inpatient [facility] Start: 04-20-2024 Evaluation and manag ement of inpatient [facility] Start: 04-20-2024 [facility] Start: 04-19-2024 Evaluation and manag ement of inpatient [facility] Start: 04-19-2024 Evaluation and manag ement of inpatient CARYN [facility] Start: 04-19-2024 Evaluation and manag ement of inpatient ANTHONY MALDONADOMARCUS [facility] Start: 04-19-2024 End: 04-22-2024 Evaluation and management of inpatient MARIYA CHIN [facility] Start: 04-15-2024 End: 04-15-2024 ambulatory NARINDER MEREDITH Not Available Start: 04-15-2024 End: 04-15-2024 Patient encounter procedure Narinder Meredith DPM Work Phone: [facility] Comment on above: Diabetes mellitus du e to underlying condition with diabetic polyneuropathy, without long-term current use of insulin (CMS/HCC) (Primary Dx); Pain due to onychomycosis of toenails of both feet; Peripheral venous insufficiency Start: 04-15-2024 End: 04-15-2024 Bamboo flowsheet Narinder Meredith DPM Work Phone: [facility] Start: 04-15-2024 End: 04-15-2024 Bamboo flowsheet Narinder Meredith DPM Work Phone: [facility] Start: 04-08-2024 End: 04-08-2024 ambulatory [facility] Work Phone: Start: 04-08-2024 End: 04-08-2024 Patient encounter procedure [facility] Work Phone: Start: 04-02-2024 End: 04-02-2024 Bamboo flowsheet Abraham Cesar MD Work Phone: [facility] Start: 04-02-2024 End: 04-02-2024 Bamboo flowsheet Abraham Cesar MD Work Phone: [facility] Start: 04-02-2024 End: 04-02-2024 ambulatory ABRAHAM CESAR Not Available Start: 04-02-2024 End: 04-02-2024 Office outpatient visit 25 minutes Abraham Cesar MD Work Phone: [facility] Comment on above: Type 2 diabetes kwasi itus with hyperglycemia, with long-term current use of insulin (CMS/HCC) (Primary Dx); Abnormal MRI, lumbar spine Start: 03-29-2024 End: 03-29-2024 Bamboo flowsheet Nati Virk PA Work Phone: [facility] Start: 03-29-2024 End: 03-29-2024 Bamboo flowsheet Nati Mona Sanford PA Work Phone: [facility] Start: 03-29-2024 End: 03-29-2024 Office outpatient visit 15 minutes Nati Mona Sanford PA Work Phone: [facility] Comment on above: Spinal stenosis of l umbar region without neurogenic claudication (Primary Dx); Right lumbar radiculopathy; Difficulty walking Start: 03-29-2024 End: 03-29-2024 ambulatory NATI VIRK Not Available Start: 03-19-2024 End: 03-19-2024 Telephone encounter Arminda Christianson [facility] Start: 03-15-2024 End: 03-15-2024 Bamboo flowsheet Abraham Cesar MD Work Phone: [facility] Start: 03-15-2024 End: 03-15-2024 Bamboo flowsheet Abraham Cesar MD Work Phone: [facility] Start: 03-15-2024 End: 03-15-2024 ambulatory ABRAHAM CESAR Not Available Start: 03-15-2024 End: 03-15-2024 Office outpatient visit 25 minutes Abraham Cesar MD Work Phone: [facility] Comment on above: Acute right-sided lo w back pain with right-sided sciatica (Primary Dx); Right lumbar radiculopathy; Muscle spasm Start: 03-09-2024 ambulatory Hemant Villareal [facility] [place] Start: 03-08-2024 End: 03-08-2024 Bamboo flowsheet Antolin Mckay DIGITAL MARKETING MANAGER [facility] Start: 03-08-2024 End: 03-08-2024 Bamboo flowsheet Antolin Mckay DIGITAL MARKETING MANAGER [facility] Start: 03-08-2024 End: 03-08-2024 ambulatory Antolin Mckay DIGITAL MARKETING MANAGER [facility] Comment on above: Acute right-sided ba ck pain with sciatica (Primary Dx); Acute right-sided low back pain with right-sided sciatica Start: 03-05-2024 End: 03-05-2024 ambulatory [facility] Start: 03-03-2024 End: 03-03-2024 Clinisync Result Encounter Generic External Data Provider NOMS External Department Unsolicited Start: 03-03-2024 End: 03-03-2024 Clinisync Result Encounter Generic External Data Provider NOMS External Department Unsolicited Start: 03-03-2024 End: 03-03-2024 ambulatory Silva Rhoades PT [facility] Comment on above: Acute right-sided ba ck pain with sciatica (Primary Dx); Acute right-sided low back pain with right-sided sciatica Start: 03-02-2024 Office outpatient vi sit 25 minutes [facility]ant[facility]ly [facility] Start: 03-02-2024 ambulatory [facility] Nigel [facility] Start: 03-01-2024 End: 03-01-2024 Office outpatient visit 25 minutes Abraham Cesar MD Work Phone: [facility] Comment on above: 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 (CMS/HCC) (Primary Dx); Type 2 diabetes mellitus with hyperglycemia, with long-term current use of insulin (CMS/HCC); Acute on chronic diastolic heart failure (CMS/HCC) Start: 02-26-2024 End: 02-26-2024 ambulatory Antolin Osmar DIGITAL MARKETING MANAGER [facility] Comment on above: Acute right-sided ba ck pain with sciatica (Primary Dx); Acute right-sided low back pain with right-sided sciatica Start: 02-24-2024 End: 02-24-2024 Bamboo flowsheet Antolin Mckay DIGITAL MARKETING MANAGER [facility] Start: 02-24-2024 End: 02-24-2024 Bamboo flowsheet Antolin Mckay DIGITAL MARKETING MANAGER [facility] Start: 02-24-2024 End: 02-24-2024 ambulatory Antolin Mckay DIGITAL MARKETING MANAGER [facility] Comment on above: Acute right-sided ba ck pain with sciatica (Primary Dx); Acute right-sided low back pain with right-sided sciatica Start: 02-18-2024 End: 02-18-2024 Bamboo flowsheet Silva Jf PT [facility] Start: 02-18-2024 End: 02-18-2024 Bamboo flowsheet Silva Jf PT [facility] Start: 02-18-2024 End: 02-18-2024 ambulatory Silva Jf PT [facility] Comment on above: Acute right-sided ba ck pain with sciatica (Primary Dx); Acute right-sided low back pain with right-sided sciatica Start: 02-11-2024 End: 02-11-2024 Bamboo flowsheet Antolin Mckay DIGITAL MARKETING MANAGER [facility] Start: 02-11-2024 End: 02-11-2024 Bamboo flowsheet Antolin Mckay DIGITAL MARKETING MANAGER [facility] Start: 02-11-2024 End: 02-11-2024 ambulatory Antolin Mckay DIGITAL MARKETING MANAGER [facility] Comment on above: Acute right-sided ba ck pain with sciatica (Primary Dx); Acute right-sided low back pain with right-sided sciatica Start: 02-05-2024 End: 02-05-2024 Office outpatient visit 15 minutes Narinder MARTINEZM Work Phone: [facility] Comment on above: 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 (Primary Dx); Onychomycosis; Toe pain, bilateral; Diabetes mellitus due to underlying condition with diabetic polyneuropathy, without long-term current use of insulin ([facility]) Start: 02-05-2024 End: 02-05-2024 ambulatory Naye Nitish DIGITAL MARKETING MANAGER [facility] Comment on above: Acute right-sided ba ck pain with sciatica (Primary Dx); Acute right-sided low back pain with right-sided sciatica Start: 02-03-2024 End: 02-03-2024 ambulatory Antolin Osmar DIGITAL MARKETING MANAGER [facility] Comment on above: Acute right-sided ba ck pain with sciatica (Primary Dx); Acute right-sided low back pain with right-sided sciatica Start: 02-03-2024 End: 02-03-2024 Bamboo flowsheet Antolinchristina Mckay DIGITAL MARKETING MANAGER [facility] Start: 02-03-2024 End: 02-03-2024 Bamboo flowsheet Antolin Mckay DIGITAL MARKETING MANAGER [facility] Start: 01-27-2024 End: 01-27-2024 Bamboo flowsheet Antolin Mckay DIGITAL MARKETING MANAGER [facility] Start: 01-27-2024 End: 01-27-2024 Bamboo flowsheet Antolin Mckay DIGITAL MARKETING MANAGER [facility] Start: 01-27-2024 End: 01-27-2024 ambulatory Antolin Mckay DIGITAL MARKETING MANAGER [facility] Comment on above: Acute right-sided ba ck pain with sciatica (Primary Dx); Acute right-sided low back pain with right-sided sciatica Start: 01-08-2024 End: 01-08-2024 May El Rashedy Work Phone: [facility] Start: 12-15-2023 End: 12-15-2023 Office outpatient new 45 minutes Casey العلي MD Work Phone: [facility] Comment on above: Diabetic polyneuropa thy associated with diabetes mellitus due to underlying condition ([facility]-HCC) (Primary Dx); Bilateral carpal tunnel syndrome Start: 12-15-2023 End: 12-15-2023 ambulatory [facility] Start: 12-09-2023 End: 12-09-2023 May El Rashedy Work Phone: [facility] Start: 10-30-2023 End: 10-30-2023 Office outpatient new 45 minutes May El Rashedy Work Phone: [facility] Start: 10-23-2023 End: 10-23-2023 ambulatory II Abraham Cesar Work Phone: [facility] Work Phone: Start: 10-23-2023 End: 10-23-2023 Patient encounter procedure II Abraham Cesar Work Phone: [facility] Work Phone: Start: 10-21-2023 End: 10-21-2023 May El Rashedy Work Phone: [facility] Start: 09-04-2023 Telephone encounter Trista Castaneda [facility] Comment on above: NEW PATIENT REFERRAL Start: 08-19-2023 End: 08-19-2023 Office outpatient visit 25 minutes Robbi Uribe MD [facility] Comment on above: TIA (transient ische hal attack) (Primary Dx); Bilateral carpal tunnel syndrome Start: 08-19-2023 End: 08-19-2023 ambulatory [facility] Start: 07-21-2023 Bamboo flowsheet Abraham kramer MD Work Phone: [facility] Start: 07-21-2023 Bamboo flowsheet Abraham kramer MD Work Phone: [facility] Start: 07-21-2023 End: 07-21-2023 Transitional care manage srvc 14 day discharge Abraham Cesar MD Work Phone: [facility] Comment on above: COVID (Primary Dx); NSTEMI (non-ST elevated myocardial infarction) ([facility]/HCC); Acute on chronic diastolic heart failure ([facility]); Type 2 diabetes mellitus with hyperglycemia, with long-term current use of insulin (CMS/[facility]); 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); Morbid (severe) obesity due to excess calories (E66.01); Body mass index [BMI] 45.0-49.9, adult (Z68.42); 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 (CMS/HCC) Start: 07-08-2023 Telephone encounter Tasha Girard RN [facility] Start: 03-13-2023 Office outpatient vi sit 15 minutes Abner BIRMINGHAM [facility] Start: 03-13-2023 End: 03-13-2023 ambulatory II Abraham Cesar Work Phone: [facility] Work Phone: Start: 03-13-2023 End: 03-13-2023 Patient encounter procedure II Abraham Cesar Work Phone: [facility] [place] Work Phone: Start: 11-06-[address] ABRAHAM CESAR Facilit y:[facility] Start: 09-12-2022 Office outpatient vi sit 15 minutes Abner Roa [facility] Neurosurgery Start: 09-12-2022 End: 09-12-2022 ambulatory II Abraham Cesar Work Phone: [facility] Work Phone: Start: 09-12-2022 End: 09-12-2022 Patient encounter procedure II Abraham Cesar Work Phone: [facility] [place] Work Phone: Start: 06-13-2022 End: 06-13-2022 Patient encounter procedure II Abraham Cesar Work Phone: [facility] [place] Work Phone: Start: 06-13-2022 End: 06-13-2022 ambulatory II Abraham Cesar Work Phone: [facility] Work Phone: Start: 06-13-2022 Postop follow up vis it related to original px Abner Roa [facility]surgery Start: 05-17-2022 End: 05-18-[address] ABRAHAM CESAR Facility:[facility] Start: 05-14-2022 End: 05-14-[address] ABRAHAM CESAR Facility:[facility] Start: 05-09-2022 End: 05-09-2022 ambulatory II Abraham Cesar Work Phone: [facility] Work Phone: Start: 05-09-2022 End: 05-09-2022 Discharged Recurring II Abraham Cesar Work Phone: [facility] [place] Work Phone: Start: 05-09-2022 Registered Recurring II Abraham Cesar Work Phone: [facility] [place] Work Phone: Start: 04-18-2022 End: 04-18-2022 ambulatory Abner Roa Other [facility] Other Start: 04-18-2022 Postop follow up vis it related to original px Abner Roa [facility] Start: 04-09-2022 End: 04-09-2022 ambulatory II Abraham Cesar Work Phone: [facility] Work Phone: Start: 04-09-2022 End: 04-09-2022 Patient encounter procedure II Abraham Cesar Work Phone: [facility] Start: 03-22-2022 End: 04-03-2022 Evaluation and management of inpatient II Abraham Cesar Work Phone: [facility] Start: 03-18-2022 Admission to [facility] Abner Roa [facility] Start: 03-18-2022 End: 03-18-2022 ambulatory Abner Roa Other [facility] Other Start: 03-18-2022 End: 03-22-2022 Evaluation and management of inpatient II Abraham Cesar Work Phone: [facility] [place] [facility] Start: 03-14-2022 End: 03-14-2022 ambulatory II Abraham Cesar Work Phone: [facility] Work Phone: Start: 03-14-2022 End: 03-14-2022 Patient encounter procedure II Abraham Cesar Work Phone: [facility] Start: 03-05-2022 End: 03-05-2022 ambulatory II Abraham Cesar Work Phone: [facility] Work Phone: Start: 03-05-2022 End: 03-05-2022 Patient encounter procedure II Abraham Cesar Work Phone: [facility] Start: 01-15-2022 End: 01-15-2022 ambulatory Abner Roa Other [employer] Other Start: 01-15-2022 Office outpatient vi sit 40 minutes Abner Roa [facility] Start: 01-09-2022 End: 01-09-2022 Patient encounter procedure MD [facility] Start: 01-07-2022 End: 01-07-2022 ambulatory Devang Keri Other [employer] Other Start: 01-07-2022 Telephone encounter Devang Keri [facility] Start: 01-03-2022 End: 01-03-2022 Patient encounter procedure MD Abner Roa Work Phone: [facility] [place] Start: 12-07-2021 End: 12-07-2021 ambulatory Devang Keri Other [employer] Other Start: 12-07-2021 Office outpatient vi sit 25 minutes Devang Keri [facility] [place] Start: 12-06-2021 End: 12-06-2021 ambulatory Abner Roa Other [employer] Other Start: 12-06-2021 Office outpatient ne w 30 minutes Abner Roa [facility] Start: 11-09-2021 End: 11-09-2021 ambulatory Abner Roa Other [employer] Other Start: 11-09-2021 Telephone encounter Abner Roa [facility] Start: 11-08-2021 End: 11-08-2021 ambulatory Devang Keri Other [employer] Other Start: 11-08-2021 Office outpatient vi sit 25 minutes Devang Keri [facility] Start: 10-24-2021 End: 10-24-2021 ambulatory Devang Keri Other [employer] Other Start: 10-24-2021 Office outpatient vi sit 25 minutes Devangolga Saavedra [facility] Start: 10-15-2021 End: 10-15-2021 ambulatory Devangolga Saavedra Other [employer] Other Start: 10-15-2021 Office outpatient vi sit 25 minutes Devang Keri [facility] Start: 10-04-2021 (Procedure) Short Devang Saavedra [facility] Start: 10-04-2021 End: 10-04-2021 ambulatory Devang Saavedra Other [employer] Other Start: 09-25-2021 End: 09-25-2021 ambulatory Devang Saavedra Other [employer] Other Start: 09-25-2021 Office outpatient ne w 45 minutes Devangolga Saavedra [facility] Start: 08-18-2018 End: 08-19-2018 Patient encounter procedure DEFAULT PHYSICIAN Facility:[facility] Start: 08-17-2018 End: 08-18-2018 Patient encounter procedure DEFAULT PHYSICIAN Facility:[facility] Procedures Date Procedure Procedure Detail Performing Clinician Start: 03-02-2025 Hemoglobin glycosylated a1c Abraham Cesar MD Work Phone: Start: 02-14-2025 ITP Generic External [place] a Provider Start: 02-11-2025 Hemoglobin glycosylated a1c Abraham Cesar MD Work Phone: Start: 02-04-2025 Computerized ophthalmic imaging retina Hemant Estrella Start: 02-04-2025 Dstrj loclzd lesion retina 1/> sess pc Hemant Estrella Start: 01-14-2025 ITP Generic External [place] a Provider Start: 12-23-2024 Hemoglobin glycosylated a1c Abraham Cesar MD Work Phone: Start: 12-20-2024 ALL BASIC METABOLIC PANEL Generic Sales Order Administrator al Data Provider Start: 12-20-2024 ALL PRO BNP Generic External [place] a Provider Start: 12-15-2024 ITP Generic External [place] a Provider Start: 12-14-2024 XR CHEST 2V Generic External [place] a Provider Start: 12-08-2024 ALL CBC WITH AUTO DIFF Generic External Data Provider Start: 11-30-2024 Fluorescein angrph w/multiframe i&r uni/bi Hemant Al Shweiki Start: 11-30-2024 Intravitreal njx pharmacologic agt spx Hemant Al Shweiki Start: 11-30-[address] [facility] iki Start: 11-29-2024 Aerobic microbial culture Abraham Cesar I I Work Phone: Start: 11-29-2024 Anaerobic microbial culture Abraham Cesar II Work Phone: Start: 11-29-2024 Gram stain microscopy Abraham Cesar II Work Phone: Start: 11-22-2024 ITP Generic External [place] a Provider Start: 11-17-2024 ITP Generic External [place] a Provider Start: 10-21-2024 CA ECHO DOPPLER COMPLETE Generic Externa l Data Provider Start: 10-21-2024 X-ray of lumbar spine, four views Abraham Melba FLORES Work Phone: Start: 10-13-2024 Hemoglobin glycosylated a1c Abraham Cesar MD Work Phone: Start: 09-27-2024 Aerobic microbial culture Abraham Cesar I I Work Phone: Start: 09-27-2024 Anaerobic microbial culture Abraham Cesar MARK Work Phone: Start: 09-27-2024 Gram stain microscopy Abraham Cesar MARK Work Phone: Start: 09-17-2024 ALL BASIC METABOLIC PANEL Generic Sales Order Administrator al Data Provider Start: 07-28-2024 CA ECHO DOPPLER COMPLETE Generic Externa l Data Provider Start: 07-20-2024 TBH UA (CLEAN/CATCH) UNDERWRITING INTERNSHIP/MICRO IF IND. Carlos Joshi MD Work Phone: Start: 07-07-2024 Arterial stent (physical object) Luigi Montana Start: 07-07-2024 Catheterization of left heart Luigi Montana Start: 07-07-2024 Percutaneous coronary intervention of anterior descending branch of left coronary artery Luigi Montana Start: 06-13-2024 BLOOD CULTURE 2 Generic External [place] a Provider Start: 06-13-2024 BLOOD CULTURE 1 Generic External [place] a Provider Start: 05-19-2024 Injection of local anesthetic into sacroiliac joint Abraham Cesar II Work Phone: Start: 05-12-2024 Urnls dip stick/tablet rgnt non-auto w/o micrscp Nati BABB Work Phone: Start: 05-11-2024 Intravitreal njx pharmacologic agt spx Hemant Estrella Start: 05-11-2024 Vabysmo Prefilled Syringe Hemant Viera iki Start: 04-02-2024 Hemoglobin glycosylated a1c Abraham Cesar MD Work Phone: Start: 03-09-2024 Intravitreal njx pharmacologic agt spx Hemant Estrella Start: 03-09-2024 Vabysmo Prefilled Syringe Hemant Viera iki Start: 03-03-2024 ALL CBC WITH AUTO DIFF Generic External Data Provider Start: 03-02-2024 Complex e/m visit add on Hemant Quarles Start: 03-02-2024 Computerized ophthalmic imaging retina Hemant Estrella Start: 03-01-2024 Hemoglobin glycosylated a1c Abraham Cesar MD Work Phone: Start: 01-08-2024 End: 01-08-2024 Computerized ophthalmic imaging retina May Jason Contreras MD Start: 01-08-2024 End: 01-08-2024 Eylea 1mg Pre-filled Syringe May Jason Contreras MD Start: 01-08-2024 End: 01-08-2024 Intravitreal njx pharmacologic agt spx May Jason Contreras MD Start: 12-09-2023 End: 12-09-2023 Computerized ophthalmic imaging retina May Jason Contreras MD Start: 12-09-2023 End: 12-09-2023 Eylea 1mg Pre-filled Syringe May Jason Contreras MD Start: 12-09-2023 End: 12-09-2023 Intravitreal njx pharmacologic agt spx May Jason Contreras MD Start: 12-04-2023 Mammography Antolin Mckay PTA Start: 10-30-2023 End: 10-30-2023 Computerized ophthalmic imaging retina May Jason Contreras MD Start: 10-30-2023 End: 10-30-2023 Eylea 1mg Pre-filled Syringe May Jason Contreras MD Start: 10-30-2023 End: 10-30-2023 Fundus Photos No Charge Bilateral May Jason Contreras MD Start: 10-30-2023 End: 10-30-2023 Intravitreal njx pharmacologic agt spx October Jason Contreras MD Start: 10-23-2023 X-ray of lumbar spine, four views II Abraham Cesar Work Phone: Start: 08-19-2023 Adult depression screening assessment Robbi Uribe MD Work Phone: Start: 03-13-2023 X-ray of lumbar spine, four views II Abraham Cesar Work Phone: Start: 01-13-2023 History of placement of stent for coronary artery disease S/P drug eluting coronary stent placement Abraham Cesar MD Work Phone: Start: 11-06-2022 Mammography Abraham Cesar MD Work Phone: Start: 09-12-2022 X-ray of lumbar spine, four views II Abraham Cesar Work Phone: Start: 06-13-2022 X-ray of lumbar spine, four views II Abraham Cesar Work Phone: Start: 04-09-2022 X-ray of lumbar spine, two or three views II Abraham Cesar Work Phone: Start: 03-24-2022 Duplex scan of lower limb veins II Abraham Cesar Work Phone: Start: 03-18-2022 OR XLIF [...] Start: 07-12-2015 H/O: hysterectomy History of hysterectomy Abraham Cesar MD Work Phone: History of decompres renard of median nerve History of carpal tunnel surgery of right wrist II Abraham Cesar Work Phone: Plan of Treatment Date Care Activity Detail Author Start: 09-03-2025 Screening for malignant neoplasm of colon Colorectal Cancer Screening [facility] Comment on above: Postponed from 1952 (Patient Refus ed) Start: 06-01-2025 Hemoglobin A1c measurement Diabetes: Hemoglobin A1C [facility] Start: 05-13-2025 Hemoglobin A1c measurement Diabetes: Hemoglobin A1C [facility] Start: 03-25-2025 Hemoglobin A1c measurement Diabetes: Hemoglobin A1C [facility] Start: 03-23-2025 End: 03-23-2025 Patient encounter procedure 03/23/2025 11:00 AM EDT Office Visit [facility] [address] [facility] [address] [place] [id number] Abraham Cesar MD [address] [facility] [address] [place] [address] [facility] [place] [facility] Start: 03-07-2025 End: 03-07-2025 Patient encounter procedure [facility] Start: 03-02-2025 End: 03-02-2025 Patient encounter procedure [facility] [place] [facility] Comment on above: Arrived Start: 02-11-2025 End: 02-11-2025 Patient encounter procedure [facility] Start: 02-07-2025 Influenza vaccination [facility] Start: 01-13-2025 Hemoglobin A1c measurement Diabetes: Hemoglobin A1C [facility] Start: 12-31-2024 End: 12-31-2024 Patient encounter procedure 12/31/2024 10:30 AM EDT Office Visit [facility] [address] [place] [address] [place] [address] Nati Virk PA [address] [place] [address] [place] [address] Arrived [facility] Comment on above: Arrived Start: 12-23-2024 End: 12-23-2024 Patient encounter procedure 12/23/2024 9:15 AM EDT Office Visit [facility] [address] [place] [address] [place] [address] Abraham Cesar MD [address] [place] [address] [place] [address] [facility] Start: 12-14-2024 Adult BMI Screening Adult BMI Screening [place] Start: 12-14-2024 Tobacco Screening Tobacco Screening [facility] Start: 12-13-2024 End: 12-13-2024 Patient encounter procedure 12/13/2024 11:00 AM EDT Office Visit [facility] [address] [place] [address] [place] [address] Abraham Cesar MD [address] [facility] [address] [place] [address] [facility] Start: 12-07-2024 End: 12-07-2024 Patient encounter procedure 12/07/2024 1:10 PM EDT Office Visit [facility] [address] [place] [address] Narinder Meredith DPM [address] [address] [facility] Start: 12-07-2024 Pulse volume recorder pneumoplethysmography [facility] Start: 12-06-2024 Influenza vaccination Influenza Vaccine (#1) [facility] Comment on above: Postponed from 02/08/2024 (Patient Refus ed) Start: 12-03-2024 Screening for malignant neoplasm of breast Mammogram [facility] Start: 11-30-2024 End: 11-30-2024 Patient encounter procedure 11/30/2024 10:40 AM EDT Office Visit [facility] [address] [place] [address] Narinder Meredith DPM [address] [address] [facility] Start: 11-17-2024 Glaucoma screening Diabetes: Retinopathy Screening [facility] Start: 11-13-2024 Hemoglobin A1c measurement Diabetes: Hemoglobin A1C [facility] Start: 10-21-2024 X-ray of lumbar spine, four views XR lumbar spine AP/LAT/FLX/EXT [facility] Start: 10-21-2024 XR Lumbar spine 4 Views [facility] Start: 10-13-2024 End: 10-13-2025 DXA Skeletal system Views for bone density DEXA bone density Imaging Routine Estrogen deficiency Expected: 10/13/2024, Expires: 10/13/2025 [facility] Work Phone: Comment on above: Expected: 10/13/2024, Expires: Start: 10-13-2024 End: 12-13-2025 MG Breast - bilateral Screening Bilateral screening mammogram Imaging Routine Breast screening Expected: 10/13/2024, Expires: 12/13/2025 [facility] Comment on above: Expected: 10/13/2024, Expires: Start: 10-13-2024 End: 10-13-2024 Patient encounter procedure [facility] Comment on above: Arrived Start: 10-08-2024 Urine screening for protein Diabetes: Urine Protein Screening [facility] Start: 09-21-2024 End: 09-21-2024 Patient encounter procedure [facility] Comment on above: Diabetes mellitus due to underlying cond ition with diabetic polyneuropathy, without long-term current use of insulin ([facility]) (Primary Dx); Pain due to onychomycosis of toenails of both feet; Peripheral venous insufficiency Start: 09-13-2024 End: 09-13-2024 Patient encounter procedure 09/13/2024 1:00 PM EDT Office Visit [facility] [address] [place] [address] [place] [address] Nati Virk PA [address] [place] [address] [place] [address] [facility] Start: 09-03-2024 End: 09-03-2024 Patient encounter procedure 09/03/2024 11:30 AM EDT Office Visit [facility] [address] [place] [address] [place] [address] Abraham Cesar MD [address] [place] [address] [place] [address] Arrived [facility] Comment on above: Arrived Start: 08-18-2024 Adult BMI Screening Adult BMI Screening [place] Start: 08-18-2024 Depression Screening Depression Screening [place] Start: 08-18-2024 Tobacco Screening Tobacco Screening [place] Start: 07-20-2024 Hemoglobin A1c measurement Diabetes: Hemoglobin A1C [facility] Start: 07-03-2024 Hemoglobin A1c measurement Diabetes: Hemoglobin A1C [facility] Start: 06-25-2024 Medicare Annual Wellness (AWV) Medicare Annual Wellness (AWV) [facility] Start: 06-25-2024 Pneumococcal Vaccine: 65+ Years [...] EST Office Visit [facility] [address] [facility] [address] [place] [address] Narinder Meredith DPM [address] [facility] 5 [place] [address] [facility] Start: 06-17-2024 End: 06-17-2024 Patient encounter procedure 06/17/2024 10:30 AM EST Appointment [facility] - Neuro[facility]iology [address] [place] [address] [address] [place] [address] [facility] Start: 06-15-2024 End: 06-15-2024 Patient encounter procedure 06/15/2024 11:00 AM EST Office Visit [facility] [address] [place] [phone] Casey العلي MD [address] [place] [address], [address], [address], [address] [place] [phone] [facility] Start: 06-14-2024 End: 06-14-2024 Patient encounter procedure 06/14/2024 11:00 AM EST Office Visit [facility] [address] [facility] [address] [place] [address] Abraham Cesar MD 112 [facility] 110 [place] [address] [facility] Start: 06-13-2024 Bacteria identified in Urine by Culture Urine Culture [facility] Start: 06-13-2024 Urine culture [facility] Start: 05-31-2024 Hemoglobin A1c measurement Diabetes: Hemoglobin A1C [facility] Start: 05-19-2024 [facility] Start: 05-12-2024 End: 05-12-2025 URINARY TRACT INFECTION (HTRX) URINARY TRACT INFECTION (HTRX) Lab Routine Burning with urination Expected: 05/12/2024 (Approximate), Expires: 05/12/2025 [facility] Work Phone: Comment on above: Expected: 05/12/2024 (Approximate), Expi res: 05/12/2025 Start: 04-27-2024 Hemoglobin A1c measurement Diabetes: Hemoglobin A1C [facility] Start: 04-15-2024 End: 04-15-2024 Patient encounter procedure 04/15/2024 3:50 PM EST Office Visit [facility] [address] [place] [address] [place] [address] Narinder Meredith DPM [address] [facility] 5 [place] [address] [facility] Start: 04-08-2024 Patient referral [facility] Work Phone: Start: 04-02-2024 End: 04-02-2024 Patient encounter procedure 04/02/2024 11:00 AM EDT Office Visit [facility] [address] [place] [address] [place] [address] Abraham Cesar MD [address] [place] [address] [place] [address] [facility] Start: 03-29-2024 End: 03-29-2024 Patient encounter procedure 03/29/2024 2:00 PM EDT Office Visit [facility] [address] [place] [address] [place] [address] Nati Virk PA [address] [place] [address] [place] [address] Arrived [facility] Comment on above: Arrived Start: 03-10-2024 Urine screening for protein Diabetes: Urine Protein Screening [facility] Start: 03-08-2024 End: 03-08-2024 ambulatory [facility] Comment on above: Arrived Start: 03-05-2024 End: 03-05-2024 ambulatory 03/05/2024 10:30 AM EDT Treatment [facility] [address] [place] [address] [place] [address] Antolin Mckay PTA [facility] Start: 03-03-2024 End: 03-03-2024 ambulatory 03/03/2024 1:00 PM EDT Treatment [facility] [address] [place] [address] [place] [address] Silva Rhoades, PT [facility] Start: 03-01-2024 End: 03-01-2024 Patient encounter procedure 03/01/2024 11:30 AM EDT Office Visit [facility] [address] [place] [address] [place] [address] Abraham Cesar MD [address] [place] [address] [place] [address] [facility] Start: 02-26-2024 End: 02-26-2024 ambulatory 02/26/2024 1:00 PM EDT Treatment [facility] [address] [facility] [address] [place] [address] Antolin Mckay, DIGITAL MARKETING MANAGER [facility] Start: 02-24-2024 End: 02-24-2024 ambulatory 02/24/2024 11:30 AM EDT Treatment [facility] [address] [facility] [address] [place] [address] Antolin Mckay, DIGITAL MARKETING MANAGER [facility] Start: 02-20-2024 End: 02-20-2024 ambulatory 02/20/2024 3:00 PM EDT Treatment [facility] [address] [facility] [address] [place] [address] Antolin Mckay, DIGITAL MARKETING MANAGER [facility] Start: 02-18-2024 End: 02-18-2024 ambulatory 02/18/2024 11:00 AM EDT Treatment [facility] [address] [place] [address] [place] [address] Silva Rhoades, PT [facility] Start: 02-17-2024 End: 02-17-2024 ambulatory 02/17/2024 10:30 AM EDT Treatment [facility] [address] [facility] [address] [place] [address] Silva Rhoades, PT [facility] Start: 02-13-2024 End: 02-13-2024 ambulatory 02/13/2024 12:00 PM EDT Treatment [facility] [address] [facility] [address] [place] [address] Antolin Mckay, DIGITAL MARKETING MANAGER [facility] Start: 02-11-2024 End: 02-11-2024 ambulatory 02/11/2024 11:00 AM EDT Treatment [facility] [address] [facility] [address] [place] [address] Silva Rhoades, PT [facility] Start: 02-08-2024 Influenza vaccination [facility] Start: 02-05-2024 End: 02-05-2024 Patient encounter procedure 02/05/2024 3:20 PM EDT Office Visit [facility] [address] [facility] [address] [place] [address] Narinder Meredith, DPMona [address] [facility] 5 [place] [address] [facility] Start: 02-05-2024 Laura Lawson 4wks Io Eyl [facility] Work Phone: Start: 02-05-2024 End: 02-05-2024 ambulatory 02/05/2024 10:00 AM EDT Treatment [facility] [address] [facility] [address] [place] [address] Naye Talbert, DIGITAL MARKETING MANAGER [facility] Start: 01-29-2024 End: 01-29-2024 ambulatory 01/29/2024 12:30 PM EDT Treatment [facility] [address] [facility] [address] [place] [address] Silva Rhoades, PT [facility] Start: 12-15-2023 End: 12-15-2023 Patient encounter procedure 12/15/2023 11:00 AM EDT Office Visit [facility] [address] [place] [address] Casey العلي MD [address] [place] [address], [address], [address], [address] [place] [phone] [facility] Start: 12-07-2023 Influenza vaccination Influenza Vaccine (#1) [facility] Comment on above: Postponed from 02/07/2023 (Patient Refus ed) Start: 11-07-2023 Screening for malignant neoplasm of breast Mammogram [facility] Start: 10-25-2023 Glaucoma screening Diabetes: Retinopathy Screening [facility] Start: 10-21-2023 Smoking cessation education Tobacco cessation counseling [facility] Start: 10-02-2023 Hemoglobin A1c measurement Diabetes: Hemoglobin A1C [facility] Start: 09-24-2023 End: 09-24-2023 Patient encounter procedure 09/24/2023 11:00 AM EDT Office Visit [facility] [address] [facility] [address] [place] [phone] Abraham Cesar MD [address] [facility] [address] [place] [address] [facility] Start: 09-23-2023 End: 09-23-2023 Patient encounter procedure 09/23/2023 1:00 PM EDT Procedure Visit [facility] [address] [facility] [address] [place] [phone] Theodore Cisse DPM [address] [facility] [address] [place] [address] [facility] Start: 08-19-2023 End: 08-19-2023 Patient encounter procedure 08/19/2023 11:30 AM EDT Office Visit [facility] [address] [place] [phone] Robbi Uribe MD [address] [place] [address], [address], [address], [address] [place], [place] [phone] [facility] Start: 07-30-2023 End: 07-30-2023 Patient encounter procedure 07/30/2023 11:30 AM EST Office Visit [facility] [address] [place] [address] [place] [address] Abraham Cesar MD [address] [place] [address] [place] [address] [facility] Start: 07-21-2023 End: 07-21-2023 Patient encounter procedure 07/21/2023 10:30 AM EST Office Visit [facility] [address] [place] [address] [place] [address] Abraham Cesar MD [address] [facility] [address] [place] [address] Arrived [facility] Comment on above: Arrived Start: 02-07-2023 Influenza vaccination Influenza Vaccine [place] Start: 04-03-2022 [facility] Start: 03-22-2022 Hospital admission [facility] Start: 03-22-2022 Referral to clinical flavor room worker [facility] Start: 03-21-2022 [facility] Start: 03-18-2022 Computer Assisted Procedure of [place] Computer Assisted Procedure [facility] [place] [facility] Start: 03-18-2022 Excision of Lumbar Vertebral Disc, Open Approach Excision of Lumbar Vertebral Disc, Open Approach [facility] Start: 03-18-2022 Fusion of 2 or more Lumbar Vertebral Joints with Interbody Fusion Device, Anterior Approach, Anterior Column, Open Approach Fusion of 2 or more Lumbar Vertebral Joints with Interbody Fusion Device, Anterior Approach, Anterior Column, Open Approach [facility] Start: 03-18-2022 Fusion of 2 or more Lumbar Vertebral Joints with Synthetic Substitute, Posterior Approach, Posterior Column, Open Approach Fusion of 2 or more Lumbar Vertebral Joints with Synthetic Substitute, Posterior Approach, Posterior Column, Open Approach [facility] Start: 03-18-2022 Introduction of Recombinant Bone Morphogenetic Protein into Joints, Open Approach Introduction of Recombinant Bone Morphogenetic Protein into Joints, Open Approach [facility] Start: 01-09-2022 Dual energy X-ray absorptiometry XR dexa axial skeleton [facility] Start: 01-09-2022 End: 01-09-2022 Patient encounter procedure [facility] Start: 2017 Fall Risk Screening Fall Risk Screening [place] Start: 2002 Administration of varicella zoster vaccine Zoster (Shingles) Vaccine (1 of 2) [place] Start: 11-24-1971 DTaP,Tdap and Td Vaccines (1 - Tdap) DTaP,Tdap and Td Vaccines (1 - Tdap) [place] Start: 11-24-1971 Pneumococcal Vaccine: 65+ Years (1 of 2 - PCV) Pneumococcal Vaccine: 65+ Years (1 of 2 - PCV) [facility] Start: 1970 Adult BMI Follow Up Plan Adult BMI Follow Up Plan [place] Start: 1970 Adult BMI Screening Adult BMI Screening [place] Start: 1970 Diabetic foot examination Diabetic Foot Exam [facility] Start: 1964 Depression Screening Depression Screening [place] Start: 1964 Tobacco Screening Tobacco Screening [place] Start: 1958 Pneumococcal Vaccine: 65+ Years (1 of 2 - PCV) Pneumococcal Vaccine: 65+ Years (1 of 2 - PCV) [facility] Start: 1952 Glaucoma screening Diabetic Ophthalmology Exam [place] Start: 1952 Medicare Annual Wellness Visit Medicare Annual Wellness Visit [place] Start: 1952 Screening for malignant neoplasm of colon [facility] BLOOD CULTURE 1 BLOOD CULTURE 1 Lab Routine 06/13/2024 6:30 AM EST [facility] BLOOD CULTURE 2 BLOOD CULTURE 2 Lab Routine 06/13/2024 7:02 AM EST [facility] End: 12-14-2024 EMG NCV EMG NCV Neurology Routine Bilateral carpal tunnel syndrome Diabetic polyneuropathy associated with diabetes mellitus due to underlying condition ([facility]) 1 Occurrences starting 12/15/2023 until 12/14/2024 [facility] Work Phone: Comment on above: 1 Occurrences starting 12/15/2023 until 12/14/2024 MR Lumbar spine WO contrast MR l umbar spine wo contrast Imaging Routine Right lumbar radiculopathy Ordered: 03/15/2024 [facility] Work Phone: Comment on above: Ordered: 03/15/2024 Patient Education [facility] Work Phone: Patient referral [facility] Work Phone: [facility] Payers Date Payer Category Payer Self-pay [id number] 2022 Private Health Insurance [id number] 2017 Medicare [id number] 1959 Medicare [id number] 2.1 [id number] 1959 Private Health Insurance [id number] 2.16.840.1.854695.19 1952 Unknown [id number] 2.16.8 40.1.129477.3.579.2.647 1952 Unknown [id number] 2.16.8 40.1.273579.3.579.2.647 1952 Unknown [id number] 2.16.84 0.1.487435.3.579.2.593 1952 Unknown [id number] 2.16.84 0.1.700834.3.579.2.593 1952 Unknown [id number] 2.16.84 0.1.170803.3.579.2.593 1952 Unknown [id number] 2.16.8 40.1.020586.3.579.2.1286 1952 Unknown [id number] 2.16.8 40.1.391727.3.579.2.1286 1952 Unknown [id number] 2.16.8 40.1.487993.3.579.2.727 1952 Unknown [id number] 2.16.8 40.1.588042.3.579.2.727 1952 Unknown [id number] 2.16.8 40.1.899026.3.579.2.727 1952 Unknown [id number] 2.16.8 40.1.316161.3.579.2.727 1952 Unknown [id number] 2.16.8 40.1.662273.3.579.2.727 1952 Unknown [id number] 2.16.8 40.1.120205.3.579.2.727 1952 Unknown [id number] 2.16.8 40.1.480849.3.579.2.727 1952 Unknown [id number] 2.16.8 40.1.200672.3.579.2.727 1952 Unknown [id number] 2.16.8 40.1.192874.3.579.2.727 1952 Unknown [id number] 2.16.84 0.1.765077.3.579.2.1347 1952 Unknown [id number] 2.16.84 0.1.591623.3.579.2.1347 1952 Unknown [id number] 2.16.84 0.1.303091.3.579.2.134 1952 Unknown [id number] 2.16.840 .1.769898.3.579.2.134 1952 Unknown [id number] 2.16.840 .1.033443.3.579.2.134 1952 Unknown [id number] 2.16.840 .1.631937.3.579.2.1347 1952 Unknown [id number] 2.16.8 40.1.089332.3.579.2.1259 1952 Unknown [id number] 2.16.8 40.1.806641.3.579.2.1259 1952 Unknown [id number] 2.16.8 40.1.340862.3.579.2.1259 1952 Unknown [id number] 2.16.8 40.1.827462.3.579.2.1258 1952 Unknown [id number] 2.16.8 40.1.226577.3.579.2.125 1952 Unknown [id number] 2.16.84 0.1.803844.3.579.2.125 1952 Unknown [id number] 2.16.84 0.1.760307.3.579.2.9 1952 Unknown [id number] 2.16.84 0.1.125316.3.579.2.1258 1952 Unknown [id number] 2.16.84 0.1.806810.3.579.2.1258 1952 Unknown [id number] 2.16.84 0.1.629772.3.579.2.1258 1952 Unknown [id number] 2.16.84 0.1.289797.3.579.2.9 1952 Unknown [id number] 2.16.84 0.1.754431.3.579.2.1258 1952 Unknown [id number] 2.16.84 0.1.168581.3.579.2.1259 1952 Unknown [id number] 2.16.84 0.1.269589.3.579.2.1258 1952 Unknown [id number] 2.16.84 0.1.475808.3.579.2.1259 1952 Unknown [id number] 2.16.84 0.1.966490.3.579.2.1259 Unknown Unknown [id number] 2.16.8 40.1.669220.3.579.2.531 Unknown [id number] 2.16.8 40.1.444983.3.579.2.531 Unknown [id number] 2.16.8 40.1.535123.3.579.2.531 Unknown [id number] 2.16.8 40.1.068928.3.579.2.531 Unknown [id number] 2.16.8 40.1.200467.3.579.2.531 Social History Date Type Detail Facility Start: 01-12-2023 End: 02-23-2024 Sex Assigned At [facility] Start: 1950 Sex Assigned At Female F [facility] Start: 03-05-2022 End: 12-20-2022 Tobacco smoking status NHIS Never smoked tobacco (finding) [facility] Start: 12-20-2022 End: 08-19-2023 Tobacco use and exposure Smokeless tobacco non-user [facility] Start: 07-21-2023 End: 02-11-2025 Alcohol intake Lifetime non-drinker (finding) [facility] [...] Not at all [facility] (I/We) worried whenevin er (my/our) food would run out before (I/we) got money to buy more. Never true [facility] Start: 10-11-2022 Alcohol Comment Caffeine: 1-2 cups per day [facility] Start: 1950 Sex Assigned At Not on file [facility] Start: 01-08-2024 Health-related behav ior (observable entity) Caffeine Use Details [facility] Start: 01-08-2024 Tobacco use and exposure Non-Smoking Tobacco Use Details [facility] Do you belong to any clubs or organizations such as restoration groups, unions, fraternal or athletic groups, or school groups? Yes [facility] Are you now , , , , never or living with a partner? Never [facility] Start: 06-14-2024 End: 10-21-2024 Sex Female (finding) [facility] Tobacco smoking stat [facility] Tobacco smoking consumption unknown [facility] Start: 08-19-2023 End: 12-15-2023 Alcoholic beverage intake Ex-drinker (finding) [facility] NEGATED: Highlighted rowStart: 01-08-2024 Tobacco smoking status INIS Unknown if ever smoked [facility] NEGATED: Highlighted row Alcohol intake Alcohol Use Details [facility] NEGATED: Highlighted rowStart: 01-08-2024 History of tobacco use Current non-smoker [facility] Medical Equipment Procedure Code Equipment Code Equipment Origin al Text Equipment Identifier Dates Fusion, spine, lumbar, XLIF STRATOFUSE DBM 10CC FDA Start: 03-18-2022 Fusion, spine, lumbar, XLIF Bone-screw internal spinal fixation system, non-sterile [id number] FDA Start: 03-18-2022 Fusion, spine, lumbar, XLIF Orthopaedic bone screw, non-bioabsorbable, non-sterile [id number] FDA Start: 03-18-2022 Fusion, spine, lumbar, XLIF Orthopaedic instrument surgical connector [id number] FDA Start: 03-18-2022 Fusion, spine, lumbar, XLIF Bone-screw internal spinal fixation system, non-sterile [id number] FDA Start: 03-18-2022 Fusion, spine, lumbar, XLIF STRATOFUSE DBM 5CC FDA Start: 03-18-2022 Fusion, spine, lumbar, XLIF Spinal fusion graft kit [id number] FDA Start: 03-18-2022 Fusion, spine, lumbar, XLIF Metallic spinal fusion cage, non-sterile [id number] FDA Start: 03-18-2022 Fusion, spine, lumbar, XLIF Metallic spinal fusion cage, non-sterile [id number] FDA Start: 03-18-2022 Fusion, spine, lumbar, XLIF [...] XLIF STRATOFUSE DBM 5CC FDA Start: 03-18-2022 [id number] Start: 11-29-2022 1 each by Other route in the morning and 1 each at noon and 1 each in the evening and 1 each before bedtime. Take before meals. ONE TOUCH ULTRA STRIPS DX: e11.65. [id number] Start: 07-09-2023 Inject under the skin 2 (two) times a day. Use as instructed [id number] 2 (two) times a day. Use as instructed [id number] USE DIRECTED UNDER THE SKIN TWO TIMES DAILY [id number] Start: 11-24-2023 1 each by Other route in the morning and 1 each in the evening and 1 each before bedtime. ONE TOUCH ULTRA STRIPS DX: e11.65. [id number] Start: 03-01-2024 End: 10-13-2024 USE DIRECTED ONCE DAILY [id number] Start: 08-07-2023 1 each by Other route in the morning and 1 each in the evening and 1 each before bedtime. ONE TOUCH ULTRA STRIPS DX: e11.65. [id number] Start: 12-08-2023 End: 03-01-2024 PTCA of LAD Unkn own 07/07/24 Unknown Left Anterior Descending Coronary Artery FDA Start: 07-07-2024 1 each by Other route in the morning and 1 each in the evening and 1 each before bedtime. ONE TOUCH ULTRA STRIPS DX: e11.65. [id number] Start: 10-13-2024 TEST ONCE IN THE MORNING,IN THE EVENING,AND BEFORE BEDTIME*E11.65* [id number] Start: 10-13-2024 Goals Date Patient Goal Desired Activity /State Functional Status Date Assessment Result Facility 12-31-2024 Patient Health Questionnaire 2 item (PHQ-2) [Reported] [facility] 12-23-2024 Patient Health Questionnaire 2 item (PHQ-2) [Reported] [facility] 10-13-2024 Patient Health Questionnaire 2 item (PHQ-2) [Reported] [facility] 07-07-2024 Functional Status No [facility] 07-07-2024 Functional Status [facility] 04-03-2022 Functional status Patient is Pro gressing Toward [facility] Work Phone: 03-22-2022 Functional status Patient is Pro gressing Toward [facility] Work Phone: 03-18-2022 Functional status Patient at [facility] Work Phone: 03-05-2022 Functional status Disability Sta tus Patient at [facility] Work Phone: Mental Status Date Assessment Result Facility 04-03-2022 Cognitive function Cognitive Sta tus Patient at [facility] Work Phone: 03-22-2022 Cognitive function Cognitive Sta tus Patient at [facility] Work Phone: 03-18-2022 Cognitive function Cognitive Sta tus Patient at [facility] Work Phone: Clinical Notes 09-25-2021 to 03-02-2025 Abraham Cesar MD - 03/02/2025 9:30 AM Marietta Cesar MD - 02/11/2025 10:30 AM HOLLEY Valdivia - 12/31/2024 10:30 AM Marietta Cesar MD - 12/23/2024 9:15 AM EDT Note Date & Type Note Facility 03-02-2025 History of Present illness Narrative Images from the original note were not included. Subjective Patient ID: Laura Lawson is a 74 y.o. female who presents for Diabetes. Diabetes Mellitus Patient presents for follow up of diabetes. Current symptoms include: hyperglycemia. Patient denies hypoglycemia , nausea, paresthesia of the feet, visual disturbances, and vomiting. Evaluation to date has included: fasting blood sugar, fasting lipid panel, and hemoglobin A1C. Home sugars: BGs range between 210 and 300 average 14 day glucose 274 Pt is using CGM-dexcom Pt is using 40 units of Toujeo QHS Diabetes She presents for her follow-up diabetic visit. She has type 2 diabetes mellitus. Current Outpatient Medications on File Prior to Visit Medication Sig Dispense Refill allopurinol (Zyloprim) 300 MG tablet Take 1 tablet (300 mg) by mouth Daily 100 tablet 3 amiodarone (Pacerone) 200 MG tablet Take by mouth apixaban (Eliquis) 5 MG tablet Take 5 mg by mouth in the morning and 5 mg before bedtime. atorvastatin (Lipitor) 80 MG tablet TAKE 1 TABLET BY MOUTH EVERY DAY AT BEDTIME 100 tablet 3 baclofen (Lioresal) 10 MG tablet TAKE 1 TABLET IN THE MORNING AND 1 TABLET BEFORE BEDTIME (Patient taking differently: Take 10 mg by mouth at bedtime) 180 tablet 3 BD Insulin Syringe U/F 31G X 5/16 1 ML misc USE DIRECTED UNDER THE SKIN TWO TIMES DAILY 180 each 3 Continuous Glucose Sensor ([employer] G7 Sensor) misc 1 patch every 14 (fourteen) days 6 each 3 dapagliflozin (Farxiga) 5 MG Take 1 tablet (5 mg) by mouth Daily 100 tablet 3 ezetimibe (Zetia) 10 MG tablet Take 1 tablet (10 mg) by mouth Daily 100 tablet 3 insulin glargine (Toujeo Max SoloStar) 300 UNIT/ML injection Inject 20 Units under the skin at bedtime (Patient taking differently: Inject 30 Units under the skin at bedtime) insulin pen needle (BD Pen Needle Cass 2nd Gen) 32G x 4 mm misc USE DIRECTED ONCE DAILY 100 each 3 insulin syringe-needle U-100 31G X 5/16 0.5 mL misc Inject under the skin 2 (two) times a day. Use as instructed meloxicam (Mobic) 15 MG tablet Take 1 tablet (15 mg) by mouth Daily 100 tablet 3 metoprolol succinate XL (Toprol-XL) 25 MG 24 hr tablet Take 1 tablet (25 mg) by mouth Daily 100 tablet 3 nitroglycerin (Nitrostat) 0.[address] 0.3 mg under the tongue every 5 (five) minutes if needed for chest pain. nystatin (Klayesta) 673138 UNIT/GM powder Apply topically 2 (two) times a day 60 g 1 omeprazole (PriLOSEC) [address] capsule Take 1 capsule (40 mg) by mouth in the morning. Take before meals. Do not crush or chew.. 100 capsule 3 [employer] SolutionsTouch Ultra test strip TEST ONCE IN THE MORNING,IN THE EVENING,AND BEFORE BEDTIME*E11.65* 100 strip 1 pen needle 31G x 6 mm misc 2 (two) times a day. Use as instructed potassium chloride CR (Klor-Con M20) 20 MEQ ER tablet Take 20 mEq by mouth in the morning and 20 mEq before bedtime. Do not crush or chew.. (Patient taking differently: Take 20 mEq by mouth Daily Do not crush or chew.) sacubitril-valsartan (Entresto) 24-26 MG tablet 1/2 tablet by mouth twice a day 90 tablet 3 spironolactone (Aldactone) 25 MG tablet Take 1 tablet (25 mg) by mouth Daily 100 tablet 3 ticagrelor (Brilinta) 90 MG tablet Take 90 mg by mouth in the morning and 90 mg before bedtime. torsemide (Demadex) 20 MG tablet Take 1.5 tablets (30 mg) by mouth Daily (Patient taking differently: Take 20 mg by mouth Daily) 45 tablet 11 [DISCONTINUED] insulin lispro (HumaLOG) 100 UNIT/ML injection Inject 1-4 times per day as directed. No current facility-administered medications on file prior to visit. I have reviewed and reconciled the history and medication list with the patient today. Allergies Allergen Reactions Penicillins Other Reaction(s): Unknown Gabapentin Palpitations Tramadol Other Social History Tobacco [...] BILATERAL 2013 CARPAL TUNNEL RELEASE CORONARY ANGIOPLASTY 04/19/2024 PCI. 90% LAD In-Stent Restenosis CORONARY ANGIOPLASTY WITH STENT PLACEMENT 2013 CT ANGIO HEAD 07/04/2023 CT ANGIO HEAD 07/04/2023 CT ANGIOGRAM NECK 07/04/2023 CT ANGIOGRAM NECK 07/04/2023 EYE EXAM 2013 Disease:Diabetes mellitus, type 2 HERNIA REPAIR [facility] ANT INTERBODY MIN DSC LUMBAR 03/18/2022 L3-L5 Anterior Lumbar Interbody Fusion, Pedicle Screw Replacement SACROILIAC JOINT INJECTION Right 05/19/2024 SPINE SURGERY [id number] THYROIDECTOMY TOTAL VAGINAL HYSTERECTOMY Visit Vitals BP 112/66 Pulse 85 Ht 5' 2 Wt 219 lb SpO2 100% BMI 40.06 kg/m Smoking Status Never BSA 2.08 m Review of Systems Objective Physical Exam Constitutional: General: She is not in acute distress. Appearance: She is well-developed. She is obese. HENT: Head: Normocephalic and atraumatic. Eyes: General: No scleral icterus. Conjunctiva/sclera: Conjunctivae normal. Cardiovascular: Rate and Rhythm: Normal rate and regular rhythm. Heart sounds: Normal heart sounds. No murmur heard. Pulmonary: Effort: Pulmonary effort is normal. No respiratory distress. Breath sounds: Normal breath sounds. No wheezing, rhonchi or rales. Musculoskeletal: Right lower le+ Edema present. Left lower le+ Edema present. Skin: General: Skin is warm and dry. Neurological: General: No focal deficit present. Mental Status: She is alert and oriented to person, place, and time. Gait: Gait abnormal (Rolling walker for ambulation). Psychiatric: Mood and Affect: Mood normal. Behavior: Behavior normal. Office Visit on 03/02/2025 Component Date Value Ref Range Status Hemoglobin A1C 03/02/2025 10.9 Final Assessment/Plan Diagnoses and all orders for this visit: Chronic systolic congestive heart failure (HCC) - No current active congestive heart failure. Dyspnea at exertion, but not at rest. No evidence of pulmonary edema. Medications unchanged. Reduced mobility Type 2 diabetes mellitus with diabetic polyneuropathy, with long-term current use of insulin (HCC) - POCT Glycated hemoglobin, total - Continue 40 units of Toujeo daily - Add back 10 units of short acting (Humalog) with your largest meal - RTC 3 weeks with CGM monitor Paroxysmal atrial fibrillation (HCC) - Dx by Cardiology. Currently in NSR - This office visit was spent in consultation regarding the patient's current medical problems, differential diagnoses, testing/imaging results, and treatment options. Greater than 25 minutes was spent in [id number] consultation and coordination of care. Follow up in about 3 weeks (around 03/23/2025) for DM- A1C. documented in this encounter [facility] 02-11-2025 History of Present illness Narrative Images from the original note were not included. Subjective Patient ID: Laura Lawson is a 74 y.o. female who presents for Diabetes. Diabetes Mellitus Patient presents for follow up of diabetes. Current symptoms include: hyperglycemia. Patient denies hypoglycemia , nausea, paresthesia of the feet, visual disturbances, and vomiting. Evaluation to date has included: fasting blood sugar, fasting lipid panel, and hemoglobin A1C. Home sugars: BGs range between 210 and 300 Pt sugar was 263 last night Diabetes She presents for her follow-up diabetic visit. She has type 2 diabetes mellitus. Current Outpatient Medications on File Prior to Visit Medication Sig Dispense Refill allopurinol (Zyloprim) 300 MG tablet Take 1 tablet (300 mg) by mouth Daily 100 tablet 3 amiodarone (Pacerone) 200 MG tablet Take by mouth apixaban (Eliquis) 5 MG tablet Take 5 mg by mouth in the morning and 5 mg before bedtime. atorvastatin (Lipitor) 80 MG tablet TAKE 1 TABLET BY MOUTH EVERY DAY AT BEDTIME 100 tablet 3 baclofen (Lioresal) 10 MG tablet TAKE 1 TABLET IN THE MORNING AND 1 TABLET BEFORE BEDTIME (Patient taking differently: Take 10 mg by mouth at bedtime) 180 tablet 3 BD Insulin Syringe U/F 31G X 5/16 1 ML misc USE DIRECTED UNDER THE SKIN TWO TIMES DAILY 180 each 3 Continuous Glucose Sensor (Dexcom G7 Sensor) misc 1 patch every 14 (fourteen) days 6 each 3 dapagliflozin (Farxiga) 5 MG Take 1 tablet (5 mg) by mouth Daily 100 tablet 3 ezetimibe (Zetia) 10 MG tablet Take 1 tablet (10 mg) by mouth Daily 100 tablet 3 insulin glargine (Toujeo Max SoloStar) 300 UNIT/ML injection Inject 20 Units under the skin at bedtime (Patient taking differently: Inject 30 Units under the skin at bedtime) insulin lispro (HumaLOG) 100 UNIT/ML injection Inject 1-4 times per day as directed. insulin pen needle (BD Pen Needle Cass 2nd Gen) 32G x 4 mm misc USE DIRECTED ONCE DAILY 100 each 3 insulin syringe-needle U-100 31G X 5/16 0.5 mL misc Inject under the skin 2 (two) times a day. Use as instructed meloxicam (Mobic) 15 MG tablet Take 1 tablet (15 mg) by mouth Daily 100 tablet 3 metoprolol succinate XL (Toprol-XL) 25 MG 24 hr tablet Take 1 tablet (25 mg) by mouth Daily 100 tablet 3 nitroglycerin (Nitrostat) 0.[address] 0.3 mg under the tongue every 5 (five) minutes if needed for chest pain. nystatin (Klayesta) [id number] UNIT/GM powder Apply topically 2 (two) times a day 60 g 1 omeprazole (PriLOSEC) [address] capsule Take 1 capsule (40 mg) by mouth in the morning. Take before meals. Do not crush or chew.. 100 capsule 3 OneTouch Ultra test strip TEST ONCE IN THE MORNING,IN THE EVENING,AND BEFORE BEDTIME*E11.65* 100 strip 1 pen needle 31G x 6 mm misc 2 (two) times a day. Use as instructed potassium chloride CR (Klor-Con M20) 20 MEQ ER tablet Take 20 mEq by mouth in the morning and 20 mEq before bedtime. Do not crush or chew.. (Patient taking differently: Take 20 mEq by mouth Daily Do not crush or chew.) sacubitril-valsartan (Entresto) 24-26 MG tablet 1/2 tablet by mouth twice a day (Patient taking differently: Take 1 tablet by mouth in the morning and 1 tablet before bedtime. 1/2 tablet by mouth twice a day.) 90 tablet 3 spironolactone (Aldactone) 25 MG tablet Take 1 tablet (25 mg) by mouth Daily 100 tablet 3 ticagrelor (Brilinta) 90 MG tablet Take 90 mg by mouth in the morning and 90 mg before bedtime. torsemide (Demadex) 20 MG tablet Take 1.5 tablets (30 mg) by mouth Daily (Patient taking differently: Take 20 mg by mouth Daily) 45 tablet 11 [DISCONTINUED] doxycycline (Vibramycin) 100 MG capsule Take 100 mg by mouth in the morning and 100 mg before bedtime. Take with at least 8 ounces (large glass) of water, do not lie down for 30 minutes after. [DISCONTINUED] Dulaglutide (Trulicity) 0.75 MG/0.5ML solution auto-injector Inject 0.75 mg under the skin 1 (one) time per week (Patient not taking: Reported on 12/24/2024) 2 mL 5 [DISCONTINUED] pregabalin (Lyrica) 25 MG capsule Take 25 mg by mouth in the morning and 25 mg before bedtime. (Patient not taking: Reported on 12/24/2024) No current facility-administered medications on file prior to visit. I have reviewed and reconciled the history and medication list with the patient today. Allergies Allergen Reactions Penicillins Other Reaction(s): Unknown Gabapentin Palpitations Tramadol Other Social History Tobacco [...] BILATERAL 2014 CARPAL TUNNEL RELEASE CORONARY ANGIOPLASTY 04/19/2024 PCI. 90% LAD In-Stent Restenosis CORONARY ANGIOPLASTY WITH STENT PLACEMENT 2013 CT ANGIO HEAD 07/04/2023 CT ANGIO HEAD 07/04/2023 CT ANGIOGRAM NECK 07/04/2023 CT ANGIOGRAM NECK 07/04/2023 EYE EXAM 2013 Disease:Diabetes mellitus, type 2 HERNIA REPAIR [facility] ANT INTERBODY MIN DSC LUMBAR 03/18/2022 L3-L5 Anterior Lumbar Interbody Fusion, Pedicle Screw Replacement SACROILIAC JOINT INJECTION Right 05/19/2024 SPINE SURGERY [id number] THYROIDECTOMY TOTAL VAGINAL HYSTERECTOMY Visit Vitals BP 122/68 Pulse 60 Ht 5' 2 Wt 208 lb SpO2 98% BMI 38.04 kg/m Smoking Status Never BSA 2.03 m Review of Systems Objective Physical Exam Constitutional: General: She is not in acute distress. Appearance: She is well-developed. She is obese. HENT: Head: Normocephalic and atraumatic. Eyes: General: No scleral icterus. Conjunctiva/sclera: Conjunctivae normal. Cardiovascular: Rate and Rhythm: Normal rate and regular rhythm. Heart sounds: Normal heart sounds. No murmur heard. Pulmonary: Effort: Pulmonary effort is normal. No respiratory distress. Breath sounds: Normal breath sounds. No wheezing, rhonchi or rales. Musculoskeletal: Right lower le+ Edema present. Left lower le+ Edema present. Skin: General: Skin is warm and dry. Neurological: General: No focal deficit present. Mental Status: She is alert and oriented to person, place, and time. Gait: Gait abnormal (Rolling walker for ambulation). Psychiatric: Mood and Affect: Mood normal. Behavior: Behavior normal. Office Visit on 02/11/2025 Component Date Value Ref Range Status Hemoglobin A1C 02/11/2025 11.2 Final Assessment/Plan Diagnoses and all orders for this visit: Type 2 diabetes mellitus with diabetic polyneuropathy, with long-term current use of insulin (HCC) - POCT Glycated hemoglobin, total - Has not been using CGM. Was instructed on how to use and why. RTC 2 weeks with CGM meter. Follow up in about 2 weeks (around 02/25/2025), or bring CGM data. documented in this encounter [facility] 01-18-2025 Note [place] [facility] Consult [place] [facility] Reason for visit: Ischemic cardiomyopathy 01/18/25 Pt has come for device check and noted to be in AF. She had very poor BS control today as per home health care coordinator. Device reveals ongoing AF. Prior HPI: Laura Lawson is a 74 y.o. [...] Drivers of Health Tobacco Use: Low Risk (01/18/2025) Patient History Smoking Tobacco Use: Never Smokeless Tobacco Use: Never Passive Exposure: Not on file Alcohol Use: Not At Risk (02/23/2024) Received from [facility] AUDIT-C Frequency of Alcohol Consumption: Never Average [...] Physical Activity: Inactive (02/23/2024) Received from [facility] Exercise Vital Sign Days of Exercise per Week: 0 days Minutes of Exercise per Session: 0 min Stress: No Stress Concern Present (02/23/2024) Received from [facility] [place] [facility] - Occupational Stress Questionnaire Feeling of Stress : Not at all Social Connections: Moderately Isolated (02/23/2024) Received from [facility] [employer]. Social Connection and Isolation Panel [NHANES] Frequency of Communication with Friends and Family: More than three times a week Frequency of Social Gatherings with Friends and Family: Once a week Attends Christian Services: Never Active Member of Clubs or Organizations: Yes Attends Club or Organization Meetings: 1 to 4 times per year Marital Status: Never Intimate Partner Violence: Unknown (04/21/2024) Humiliation, Afraid, Rape, and Kick questionnaire Fear of Current or Ex-Partner: No Emotionally Abused: Not on file Physically Abused: Not on file Sexually Abused: Not on file Depression: Not at risk (12/31/2024) Received from [facility] [employer]. PHQ-2 Patient Health Questionnaire-2 Score: 0 Housing Stability: Low Risk (04/21/2024) Housing Stability Vital Sign Unable to Pay for Housing in the Last Year: No Number of Times Moved in the Last Year: Not on file Homeless in the Last Year: No Utilities: Not At Risk (04/21/2024) [facility] Utilities Threatened with loss of utilities: No Health Literacy: Adequate Health Literacy (02/23/2024) Received from [facility] [employer]. B1300 Health Literacy Frequency of need for help with medical instructions: Never Allergies: Allergies Allergen Reactions Penicillin Unknown Gabapentin Palpitations Other reaction(s): Chest Pain Tramadol Other Other reaction(s): sleeplessness Weight: No weight available Visit Vitals Ht 1.575 m (5' 2 ) BMI 37.31 kg/m??? OB Status Postmenopausal Smoking Status Never BSA 2.01 m??? Meds: Current Outpatient Medications on File Prior to Visit Medication Sig Dispense Refill allopurinol (Zyloprim) 300 mg tablet Take 300 mg by mouth in the morning. apixaban (Eliquis) 5 mg tablet Take 1 tablet (5 mg) by mouth two times daily. 180 tablet 3 atorvastatin (Lipitor) 80 mg tablet Take 80 mg by mouth at bedtime. baclofen (Lioresal) 10 mg tablet Take 10 mg by mouth at bedtime. dapagliflozin propanediol (Farxiga) 5 mg Take 1 tab (more content not included)... [facility] 12-31-2024 History of Present illness Narrative Images from the original note were not included. HPI toe blister Additional comments: Pt admits she has had a sore on her great toe of her right foot for about 2 weeks, blister has popped 2 times. Also has a sore on her finger on her right middle finger that she has been on ATB for and feels it is healing. Last edited by Shannan Villanueva LPN on 12/31/2024 10:42 AM. Subjective Patient ID: Laura Lawson is a 74 y.o. female who presents for face to face for medical bed. Laura is present today with friend for evaluation for a medical bed. Admits she has a hard time getting out of bed so would like to discuss if she qualifies for the bed. She has been sleeping in a chair. Did get a lift chair and so has been able to elevate her legs more. Right middle finger infection and is currently on keflex. Over the past 2 weeks, how often have you been bothered by any of the following problems? Little interest or pleasure in doing things: Not at all Feeling down, depressed, or hopeless: Not at all Patient Health Questionnaire-2 Score: 0 Current Outpatient Medications on File Prior to Visit Medication Sig Dispense Refill allopurinol (Zyloprim) 300 MG tablet Take 1 tablet (300 mg) by mouth Daily 100 tablet 3 apixaban (Eliquis) 5 MG tablet Take 5 mg by mouth in the morning and 5 mg before bedtime. atorvastatin (Lipitor) 80 MG tablet TAKE 1 TABLET BY MOUTH EVERY DAY AT BEDTIME 100 tablet 3 baclofen (Lioresal) 10 MG tablet TAKE 1 TABLET IN THE MORNING AND 1 TABLET BEFORE BEDTIME (Patient taking differently: Take 10 mg by mouth at bedtime) 180 tablet 3 BD Insulin Syringe U/F 31G X 5/16 1 ML misc USE DIRECTED UNDER THE SKIN TWO TIMES DAILY 180 each 3 cephalexin (Keflex) 500 MG capsule Take 1 capsule (500 mg) by mouth in the morning and 1 capsule (500 mg) before bedtime. Do all this for 10 days. 20 capsule 0 Continuous Glucose Sensor (Dexcom G7 Sensor) misc 1 patch every 14 (fourteen) days 6 each 3 dapagliflozin (Farxiga) 5 MG Take 1 tablet (5 mg) by mouth Daily 100 tablet 3 doxycycline (Vibramycin) 100 MG capsule Take 100 mg by mouth in the morning and 100 mg before bedtime. Take with at least 8 ounces (large glass) of water, do not lie down for 30 minutes after. Dulaglutide (Trulicity) 0.75 MG/0.5ML solution auto-injector Inject 0.75 mg under the skin 1 (one) time per week (Patient not taking: Reported on 12/24/2024) 2 mL 5 ezetimibe (Zetia) 10 MG tablet Take 1 tablet (10 mg) by mouth Daily 100 tablet 3 insulin glargine (Toujeo Max SoloStar) 300 UNIT/ML injection Inject 20 Units under the skin at bedtime (Patient taking differently: Inject 30 Units under the skin at bedtime) insulin lispro (HumaLOG) 100 UNIT/ML injection Inject 1-4 times per day as directed. insulin pen needle (BD Pen Needle Cass 2nd Gen) 32G x 4 mm misc USE DIRECTED ONCE DAILY 100 each 3 insulin syringe-needle U-100 31G X 5/16 0.5 mL misc Inject under the skin 2 (two) times a day. Use as instructed meloxicam (Mobic) 15 MG tablet Take 1 tablet (15 mg) by mouth Daily 100 tablet 3 metoprolol succinate XL (Toprol-XL) 25 MG 24 hr tablet Take 1 tablet (25 mg) by mouth Daily 100 tablet 3 nitroglycerin (Nitrostat) 0.[address] 0.3 mg under the tongue every 5 (five) minutes if needed for chest pain. nystatin (Klayesta) [id number] UNIT/GM powder Apply topically 2 (two) times a day 60 g 1 omeprazole (PriLOSEC) [address] capsule Take 1 capsule (40 mg) by mouth in the morning. Take before meals. Do not crush or chew.. 100 capsule 3 OneTouch Ultra test strip TEST ONCE IN THE MORNING,IN THE EVENING,AND BEFORE BEDTIME*E11.65* 100 strip 1 pen needle 31G x 6 mm misc 2 (two) times a day. Use as instructed potassium chloride CR (Klor-Con M20) 20 MEQ ER tablet Take 20 mEq by mouth in the morning and 20 mEq before bedtime. Do not crush or chew.. (Patient taking differently: Take 20 mEq by mouth Daily Do not crush or chew.) pregabalin (Lyrica) 25 MG capsule Take 25 mg by mouth in the morning and 25 mg before bedtime. (Patient not taking: Reported on 12/24/2024) sacubitril-valsartan (Entresto) 24-26 MG tablet 1/2 tablet by mouth twice a day (Patient taking differently: Take 1 tablet by mouth in the morning and 1 tablet before bedtime. 1/2 tablet by mouth twice a day.) 90 tablet 3 spironolactone (Aldactone) 25 MG tablet Take 1 tablet (25 mg) by mouth Daily 100 tablet 3 ticagrelor (Brilinta) 90 MG tablet Take 90 mg by mouth in the morning and 90 mg before bedtime. torsemide (Demadex) 20 MG tablet Take 1.5 tablets (30 mg) by mouth Daily (Patient taking differently: Take 20 mg by mouth Daily) 45 tablet 11 [DISCONTINUED] Continuous Glucose Sensor (Dexcom G7 Sensor) misc 1 patch every 14 (fourteen) days 6 each 3 No current facility-administered medications on file prior [...] BILATERAL 2013 CARPAL TUNNEL RELEASE CORONARY ANGIOPLASTY 04/19/2024 PCI. 90% LAD In-Stent Restenosis CORONARY ANGIOPLASTY WITH STENT PLACEMENT 2013 CT ANGIO HEAD 07/04/2023 CT ANGIO HEAD 07/04/2023 CT ANGIOGRAM NECK 07/04/2023 CT ANGIOGRAM NECK 07/04/2023 EYE EXAM 2013 Disease:Diabetes mellitus, type 2 HERNIA REPAIR [facility] ANT INTERBODY MIN DSC LUMBAR 03/18/2022 L3-L5 Anterior Lumbar Interbody Fusion, Pedicle Screw Replacement SACROILIAC JOINT INJECTION Right 05/19/2024 SPINE SURGERY [id number] THYROIDECTOMY TOTAL VAGINAL HYSTERECTOMY Visit Vitals BP 116/64 Pulse 78 Resp 16 Ht 5' 2.4 Wt 210 lb 6.4 oz SpO2 96% BMI 37.99 kg/m Smoking Status Never BSA 2.05 m Review of Systems Constitutional: Negative for chills, fatigue and fever. Respiratory: Negative for cough, shortness of breath and wheezing. Cardiovascular: Positive for leg swelling. Negative for chest pain and palpitations. Gastrointestinal: Negative for abdominal pain, constipation, diarrhea, nausea and vomiting. Skin: Positive for wound. Negative for rash. Blister of right great toe Objective Physical Exam Constitutional: General: She is not in acute distress. Appearance: She is well-developed. She is obese. HENT: Head: Normocephalic and atraumatic. Eyes: General: No scleral icterus. Conjunctiva/sclera: Conjunctivae normal. Cardiovascular: Rate and Rhythm: Normal rate and regular rhythm. Pulses: Dorsalis pedis pulses are 1+ on the right side and 1+ on the left side. Heart sounds: Normal heart sounds. No murmur heard. Pulmonary: Effort: Pulmonary effort is normal. No respiratory distress. Breath sounds: Normal breath sounds. No wheezing, rhonchi or rales. Musculoskeletal: Right lower le+ Edema present. Left lower le+ Edema present. Skin: General: Skin is warm and dry. Findings: Wound present. Comments: Right middle finger, dorsal aspect of distal phalanx with mild amount of purulent material on open wound. Mild scabbing surrounding wound. Mild surrounding erythema. (See Photo) Right great toe, dorsal aspect with large blister filled with serous liquid, skin over MCP joint where blister has previously popped, without signs of infection (See Photo) Neurological: General: No focal deficit present. Mental Status: She is alert and oriented to person, place, and time. Gait: Gait abnormal (wheelchair). Psychiatric: Mood and Affect: Mood normal. Behavior: Behavior normal. Assessment/Plan Diagnoses and all orders for this visit: Cellulitis of finger of right hand - mupirocin (Bactroban) 2 % ointment; Apply topically in the morning and in the evening and before bedtime. Do all this for 10 days. Continue Keflex as prescribed. Start Mupirocin as prescribed. Continue to keep covered. Continue to follow up with [facility]. Clean dressing applied. Blister of toe of right foot, initial encounter Avoid popping blister if possible. Gently applied Kerlex gauze over the foot. Peripheral venous insufficiency Has been able to keep her legs elevated more easily since getting a lift chair. Continue to do so when possible. Chronic systolic congestive heart failure (HCC) The patient is seen today for a face to face encounter as she is in need of a hospital bed. The patient has a medical condition which requires positioning of the body in ways not feasible with an ordinary bed. Patient requires the head of the bed to be elevated more than 30 degrees most of the time due to history of Chronic Systolic Congestive Heart Failure. Patient requires a bed height different than a fixed height hospital bed to permit safe transfers to chair, wheelchair or standing position due to inability to ambulate, weakness and wheelchair status. The patient's condition requires frequent change in body position. Dilated cardiomyopathy (HCC) The patient is seeing a biomedical engineering technologist for this condition, treatment is deferred to that specialist. Correspondence from that specialist and any available testing were reviewed during today's visit. Can try Medihoney to areas of irritation along her gluteal region. Follow up for Appointment As Scheduled. documented in this encounter [facility] 12-23-2024 History of Present illness Narrative Images from the original note were not included. Subjective Patient ID: Laura Lawson is a 74 y.o. female who presents for Diabetes, Edema, and face to face for lift chair. Face to face for lift chair Diabetes Mellitus Patient presents for follow up of diabetes. Current symptoms include: hyperglycemia. Patient denies hypoglycemia , nausea, paresthesia of the feet, visual disturbances, and vomiting. Evaluation to date has included: fasting blood sugar, fasting lipid panel, and hemoglobin A1C. Home sugars: BGs range between 210 and 300 Pt is not taking Trulicity she thought she was old last visit to stop it She had pacemaker placed recently Edema Patient complains of edema in both ankles and feet and both lower legs. She saw cardiology a few weeks ago and her Torsemide was increased to 30mg every day She sees would clinic in [place] for wounds on legs and feet Diabetes Pertinent negatives for diabetes include no chest pain and no fatigue. Edema Pertinent negative symptoms include no chest pain and no fatigue. Over the past 2 weeks, how often have you been bothered by any of the following problems? Little interest or pleasure in doing things: Not at all Feeling down, depressed, or hopeless: Not at all Patient Health Questionnaire-2 Score: 0 Current Outpatient Medications on File Prior to Visit Medication Sig Dispense Refill allopurinol (Zyloprim) 300 MG tablet Take 1 tablet (300 mg) by mouth Daily 100 tablet 3 apixaban (Eliquis) 5 MG tablet Take 5 mg by mouth in the morning and 5 mg before bedtime. atorvastatin (Lipitor) 80 MG tablet TAKE 1 TABLET BY MOUTH EVERY DAY AT BEDTIME 100 tablet 3 baclofen (Lioresal) 10 MG tablet TAKE 1 TABLET IN THE MORNING AND 1 TABLET BEFORE BEDTIME 180 tablet 3 BD Insulin Syringe U/F 31G X 5/16 1 ML misc USE DIRECTED UNDER THE SKIN TWO TIMES DAILY 180 each 3 dapagliflozin (Farxiga) 5 MG Take 1 tablet (5 mg) by mouth Daily 100 tablet 3 ezetimibe (Zetia) 10 MG tablet Take 1 tablet (10 mg) by mouth Daily 100 tablet 3 insulin glargine (Toujeo Max SoloStar) 300 UNIT/ML injection Inject 20 Units under the skin at bedtime insulin lispro (HumaLOG) 100 UNIT/ML injection Inject 1-4 times per day as directed. insulin pen needle (BD Pen Needle Cass 2nd Gen) 32G x 4 mm misc USE DIRECTED ONCE DAILY 100 each 3 insulin syringe-needle U-100 31G X 5/16 0.5 mL misc Inject under the skin 2 (two) times a day. Use as instructed meloxicam (Mobic) 15 MG tablet Take 1 tablet (15 mg) by mouth Daily 100 tablet 3 metoprolol succinate XL (Toprol-XL) 25 MG 24 hr tablet Take 1 tablet (25 mg) by mouth Daily 100 tablet 3 nitroglycerin (Nitrostat) 0.[address] 0.3 mg under the tongue every 5 (five) minutes if needed for chest pain. nystatin (Klayesta) [id number] UNIT/GM powder Apply topically 2 (two) times a day 60 g 1 omeprazole (PriLOSEC) [address] capsule Take 1 capsule (40 mg) by mouth in the morning. Take before meals. Do not crush or chew.. 100 capsule 3 OneTouch Ultra test strip TEST ONCE IN THE MORNING,IN THE EVENING,AND BEFORE BEDTIME*E11.65* 100 strip 1 pen needle 31G x 6 mm misc 2 (two) times a day. Use as instructed potassium chloride CR (Klor-Con M20) 20 MEQ ER tablet Take 20 mEq by mouth in the morning and 20 mEq before bedtime. Do not crush or chew.. pregabalin (Lyrica) 25 MG capsule Take 25 mg by mouth in the morning and 25 mg before bedtime. sacubitril-valsartan (Entresto) 24-26 MG tablet 1/2 tablet by mouth twice a day 90 tablet 3 spironolactone (Aldactone) 25 MG tablet Take 1 tablet (25 mg) by mouth Daily 100 tablet 3 ticagrelor (Brilinta) 90 MG tablet Take 90 mg by mouth in the morning and 90 mg before bedtime. [DISCONTINUED] torsemide (Demadex) 20 MG tablet Take 1 tablet (20 mg) by mouth Daily 30 tablet 11 Dulaglutide (Trulicity) 0.75 MG/0.5ML solution auto-injector Inject 0.75 mg under the skin 1 (one) time per week (Patient not taking: Reported on 12/23/2024) 2 mL 5 [DISCONTINUED] lidocaine (Lidoderm) 5 % patch PLACE 1 PATCH ON MOST PAINFUL AREA ON SKIN ONCE DAILY NEEDED FOR PAIN *ON FOR 12HRS/OFF FOR 12HRS (Patient not taking: Reported on 09/13/2024) No current facility-administered medications on file prior [...] BILATERAL 2014 CARPAL TUNNEL RELEASE CORONARY ANGIOPLASTY 04/19/2024 PCI. 90% LAD In-Stent Restenosis CORONARY ANGIOPLASTY WITH STENT PLACEMENT 2013 CT ANGIO HEAD 07/04/2023 CT ANGIO HEAD 07/04/2023 CT ANGIOGRAM NECK 07/04/2023 CT ANGIOGRAM NECK 07/04/2023 EYE EXAM 2013 Disease:Diabetes mellitus, type 2 HERNIA REPAIR [facility] ANT INTERBODY MIN DSC LUMBAR 03/18/2022 L3-L5 Anterior Lumbar Interbody Fusion, Pedicle Screw Replacement SACROILIAC JOINT INJECTION Right 05/19/2024 SPINE SURGERY [id number] THYROIDECTOMY TOTAL VAGINAL HYSTERECTOMY Visit Vitals BP 130/82 Pulse 83 Ht 5' 2.4 Wt 207 lb SpO2 96% BMI 37.38 kg/m Smoking Status Never BSA 2.03 m Review of Systems Constitutional: Negative for fatigue. Cardiovascular: Negative for chest pain. Objective Physical Exam Constitutional: General: She is not in acute distress. Appearance: She is well-developed. She is obese. HENT: Head: Normocephalic and atraumatic. Eyes: General: No scleral icterus. Conjunctiva/sclera: Conjunctivae normal. Cardiovascular: Rate and Rhythm: Normal rate and regular rhythm. Heart sounds: Normal heart sounds. No murmur heard. Pulmonary: Effort: Pulmonary effort is normal. No respiratory distress. Breath sounds: Normal breath sounds. No wheezing, rhonchi or rales. Musculoskeletal: Right lower le+ Edema present. Left lower le+ Edema present. Comments: Left lower leg with linear scabs, healing, no active drainage, skin is peeling, dry, mild erythema beneath peeling skin with mild increased warmth to touch Skin: General: Skin is warm and dry. Neurological: General: No focal deficit present. Mental Status: She is alert and oriented to person, place, and time. Gait: Gait abnormal (Rolling walker for ambulation). Psychiatric: Mood and Affect: Mood normal. Behavior: Behavior normal. Office Visit on 12/23/2024 Component Date Value Ref Range Status Hemoglobin A1C 12/23/2024 10.4 Final Assessment/Plan Diagnoses and all orders for this visit: Type 2 diabetes mellitus with diabetic polyneuropathy, with long-term current use of insulin (HCC) - POCT Glycated hemoglobin, total - Continuous Glucose Sensor (Dexcom G7 Sensor) misc; 1 patch every 14 (fourteen) days - Poor control since stopping Trulicity last OV due to weight loss - Increase Lantus to 30 units a day - Start CGM, bring meter next OV Chronic systolic congestive heart failure (HCC) - torsemide (Demadex) 20 MG tablet; Take 1.5 tablets (30 mg) by mouth Daily Muscle weakness (generalized) - This medical problem limits mobility, especially the ability to rise from a seated position. This patient would benefit from a lift chair, one is ordered. This medical condition is permanent, the patient has reached maximum medical benefit from medication and therapies, and will need the lift chair for lifetime use. Peripheral venous insufficiency - torsemide (Demadex) 20 MG tablet; Take 1.5 tablets (30 mg) by mouth Daily Cellulitis of finger of right hand - cephalexin (Keflex) 500 MG capsule; Take 1 capsule (500 mg) by mouth in the morning and 1 capsule (500 mg) before bedtime. Do all this for 10 days. Ataxia Follow up in about 4 weeks (around 01/20/2025) for DM- A1C. documented in this encounter [facility] 12-20-2024 Note SUBJECTIVE Reason for Visit: Laura Lawson is a 74 y.o. year old female patient being seen for wound check, status post ICD. HPI: Laura Lawson is a 74 y.o. year old female [...] to 8 weeks. +3-4 pitting edema on exam. She mentions she just got back from the [...] Rate 12/13/2024 72 Atrial Rate 12/13/2024 72 VA Interval 12/13/2024 230 QRS DURATION 12/13/2024 142 QT Interval 12/13/2024 432 QTC CALCULATION(BAZETT) 12/13/2024 473 P Mammoth 12/13/2024 -1 R-Mammoth 12/13/2024 151 T Wave Mammoth 12/13/2024 12 Ventricular Rate 12/13/2024 82 Atrial Rate 12/13/2024 82 VA Interval 12/13/2024 166 QRS DURATION 12/13/2024 174 QT Interval 12/13/2024 452 QTC CALCULATION(BAZETT) 12/13/2024 528 P [place] 12/13/2024 68 R-Mammoth 12/13/2024 159 T Wave [place] 12/13/2024 4 I have personally reviewed and anaylzed the following laboratory results above. These findings have been analyzed in the context of the patient's clinical presentation. Cardiovascular Diagnostic Studies: 07/07/2024 coronary angiogram ([facility]): PROCEDURE PHYSICIAN: Bhargav Rosado MD 04/19/2024 Clinical Presentation: 73 y.o. Female with history of CAD s/p multivessel PCI 10/2023 ( (more content not included)... [facility] 12-13-2024 Note DUAL CHAMBER ICD IMP LANT PROCEDURE NOTE DATE OF PROCEDURE: 12/13/24 PERFORMING PHYSICIAN: Dr. Misty Edwards CONSENT: Patient LOCATION: EP Lab PROCEDURE [...] using modified seldinger technique using a 5 Italian micro-puncture needle on two occasions and 0.35 [...] for the device above the muscle. 6 Italian Safesheaths were placed over the wire. Since the patient had IVCD, the decision was made to proceed with a dual-chamber ICD. The intention was to place the ICD lead in septal location to see whether we could have left fascicular capture resulting in a narrow QRS. To accommodate this [place] sheath was utilized. An active fixation Biotronik pacing lead was then delivered through the sheath to the right ventricle. After confirmation of lead position on orthogonal views (MATTSON and MAURITIAN) to confirm septal position, the screw was [...] lead position on orthogonal views (MATTSON and MAURITIAN), the screw was activated. Good sensing parameters, [...] from discharge or sooner for any concerns. 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 Use of blood products discussed with patient who. Additional Equipment Requests [facility] 12-07-2024 History of Present illness Narrative Patient: Laura Lawson : 1950 PCP: Abraham Cesar MD SUBJECTIVE This is a 74 [...] mouth Daily, Disp: 100 tablet, Rfl: 3 apixaban (Eliquis) 5 MG tablet, Take 5 mg by mouth in the morning and 5 mg before bedtime., Disp: , Rfl: atorvastatin (Lipitor) 80 MG tablet, TAKE 1 TABLET BY MOUTH EVERY DAY AT BEDTIME, Disp: 100 tablet, Rfl: 3 baclofen (Lioresal) 10 MG tablet, TAKE 1 TABLET IN THE MORNING AND 1 TABLET BEFORE BEDTIME, Disp: 180 tablet, Rfl: 3 BD Insulin Syringe U/F 31G X 5/16 1 ML misc, USE DIRECTED UNDER THE SKIN TWO TIMES DAILY, Disp: 180 each, Rfl: 3 dapagliflozin (Farxiga) 5 MG, Take 1 tablet (5 mg) by mouth Daily, Disp: 100 tablet, Rfl: 3 Dulaglutide (Trulicity) 0.75 MG/0.5ML solution auto-injector, Inject 0.75 mg under the skin 1 (one) time per week, Disp: 2 mL, Rfl: 5 [...] FOR PAIN *ON FOR 12HRS/OFF FOR 12HRS (Patient not taking: Reported on 09/13/2024), Disp: , Rfl: meloxicam (Mobic) 15 MG tablet, Take 1 tablet (15 mg) by mouth Daily, Disp: 100 tablet, Rfl: 3 metoprolol succinate XL (Toprol-XL) 25 MG 24 hr tablet, Take 1 tablet (25 mg) by mouth Daily, Disp: 100 tablet, Rfl: 3 nitroglycerin (Nitrostat) 0.3 MG SL tablet, Place 0.3 mg under the tongue every 5 (five) minutes if needed for chest pain., Disp: , Rfl: nystatin (Klayesta) [id number] UNIT/GM powder, Apply topically 2 (two) times a day, Disp: 60 g, Rfl: 1 omeprazole (PriLOSEC) [address] capsule, Take 1 capsule (40 mg) by mouth in the morning. Take before meals. Do not crush or chew.., Disp: 100 [...] Strain: Low Risk (04/21/2024) Received from [facility] Overall Financial Resource Strain (CARDIA) Difficulty of Paying Living Expenses: Not hard at all Food Insecurity: No Food Insecurity (04/21/2024) Received from [facility] Hunger Vital Sign Within the past 12 months, you worried that your food would run out before you got the money to buy more.: Never true Ran Out of Food in the Last Year: Not on file Transportation Needs: No Transportation Needs (04/21/2024) Received from [facility] Transportation In the past 12 months, has lack of transportation kept you from medical appointments or from getting medications?: No Lack of Transportation (Non-Medical): Not on file Physical Activity: Inactive (02/23/2024) Exercise Vital Sign Days of Exercise per Week: 0 days Minutes of Exercise per Session: 0 min Stress: No Stress Concern Present (02/23/2024) [place] [employer] - Occupational Stress Questionnaire Feeling of Stress : Not at all Social Connections: Moderately Isolated (02/23/2024) Social Connection and Isolation Panel [NHANES] Frequency of Communication with Friends and Family: More than three times a week Frequency of Social Gatherings with Friends and Family: Once a week Attends Christian Services: Never Active Member of Clubs or Organizations: Yes Attends Club or Organization Meetings: 1 to 4 times per year Marital Status: Never Intimate Partner Violence: Unknown (04/21/2024) Received from [facility] Humiliation, Afraid, Rape, and Kick questionnaire Fear of Current or Ex-Partner: No Emotionally Abused: Not on file Physically Abused: Not on file Sexually Abused: Not on file Housing Stability: Low Risk (04/21/2024) Received from [facility] Housing Stability Vital Sign In the last 12 months, was there a time when you were not able to pay the mortgage or rent on time?: No Number of Times Moved in the Last Year: Not on file At any time in the past 12 months, were you homeless or living in a nursing home (including now)?: No ROS: Gastrointestinal: denies abdominal pain, ulcers, or changes in appetite or bowel habits Musculoskeletal: Positive generalized arthritis to joints and denies loss of strength. Cardiovascular: denies CP, palpitations, irregular rhythms OBJECTIVE LE EXAM: DERM: Elongated thick yellow crumbly nails digits 1 through 10. Diminished hair growth b/l feet. +1 pitting edema to bilateral ankles Bandage the posterior heels bilaterally VASC: Negative PT and DP pulses bilaterally NEURO: 5.07 [place] Avi monofilament test diminished to digits and [...] feet elevated when nonweightbearing Continue with [facility] [place] [facility] Narinder Meredith DPM documented in this encounter [facility] 11-09-2024 Note [place] Electrophysiology Consult Note [place] Cardiology [facility] Reason for visit: Ischemic cardiomyopathy [...] Abnormal ECG CHF (congestive heart failure) ([facility]) Coronary artery disease Diabetes mellitus ([facility]) Gout Hypertension Myocardial infarction ([facility]) Sleep apnea PSH: Past Surgical History: Procedure Laterality Date BACK SURGERY CARDIAC CATHETERIZATION CARPAL TUNNEL RELEASE HYSTERECTOMY THYROID SURGERY SH: Social Determinants of Health Tobacco Use: Low Risk (11/09/2024) Patient History Smoking Tobacco Use: Never Smokeless Tobacco Use: Never Passive Exposure: Not on file Alcohol Use: Not At Risk (02/23/2024) Received from [facility] AUDIT-C Frequency of Alcohol Consumption: [...] file Physical Activity: Inactive (02/23/2024) Received from [facility] Exercise Vital Sign Days of Exercise per Week: 0 days Minutes of Exercise per Session: 0 min Stress: No Stress Concern Present (02/23/2024) Received from [facility] [place] [facility] - Occupational Stress Questionnaire Feeling of Stress : Not at all Social Connections: Moderately Isolated (02/23/2024) Received from [facility] Social Connection and Isolation Panel [NHANES] Frequency of Communication with Friends and Family: More than three times a week Frequency of Social Gatherings with Friends and Family: Once a week Attends Christian Services: Never Active Member of Clubs or Organizations: Yes Attends Club or Organization Meetings: 1 to 4 times per year Marital Status: Never Intimate Partner Violence: Unknown (04/21/2024) Humiliation, Afraid, Rape, and Kick questionnaire Fear of Current or Ex-Partner: No Emotionally Abused: Not on file Physically Abused: Not on file Sexually Abused: Not on file Depression: Not at risk (10/13/2024) Received from [facility] PHQ-2 Patient Health Questionnaire-2 Score: 0 Housing Stability: Low Risk (04/21/2024) Housing Stability Vital Sign Unable to Pay for Housing in the Last Year: No Number of Times Moved in the Last Year: Not on file Homeless in the Last Year: No Utilities: Not At Risk (04/21/2024) [facility] Utilities Threatened with loss of utilities: No Health Literacy: Adequate Health Literacy (02/23/2024) Received from [employer], [facility] [employer]. B1300 Health Literacy Frequency of need for [...] 10 mg tablet Take 10 mg by m (more content not included)... [facility] 10-21-2024 Evaluation note Diagnosis Onset Date Resolution Chronic radicular low back pain acute October 21, 2024 11:25am Trochanteric bursitis, right hip acute October 21, 2024 11:25am Diabetes mellitus, type 2 acute November 29, 2024 10:34am Edema of both lower extremities acute November 29, 2024 10:34am Neuropathic pain acute November 10:34am Ulcer of left heel acute November 082024 10:34am Ulcer of right heel acute November 29, 2024 10:34am Venous insufficiency (chronic) (peripheral) acute November 10:34am Venous stasis dermatitis of both lower extremities acute November 29, 2024 10:34am Wound infection acute November 10:34am [facility] Work Phone: 1(668) 942-338705-07-2025 History of Present illness Narrative* Abraham Cesar MD - 10/13/2024 11:30 AM EDT Images from the original note were not included. Subjective : Chief Complaint: Laura Lawson is an 73 y.o. female here for an annual wellness visit. I have reviewed and reconciled the history and medication list with the patient today. Current Outpatient Medications Medication Sig Dispense Refill allopurinol (Zyloprim) 300 MG tablet Take 1 tablet (300 mg) by mouth Daily 100 tablet 3 apixaban (Eliquis) 5 MG tablet Take 5 mg by mouth in the morning and 5 mg before bedtime. atorvastatin (Lipitor) 80 MG tablet TAKE 1 TABLET BY MOUTH EVERY DAY AT BEDTIME 100 tablet 3 baclofen (Lioresal) 10 MG tablet Take 1 tablet (10 mg) by mouth in the morning and 1 tablet (10 mg)before bedtime. 200 tablet 2 BD Insulin Syringe U/F 31G X 5/16 1 ML misc USE DIRECTED UNDER THE SKIN TWO TIMES DAILY 180 each 3 dapagliflozin (Farxiga) 5 MG Take 1 tablet (5 mg) by mouth Daily 100 tablet 3 Dulaglutide (Trulicity) 0.75 MG/0.5ML solution auto-injector Inject 0.75 mg under the skin 1 (one) time per week 2 mL 5 ezetimibe (Zetia) 10 MG tablet Take 1 tablet (10 mg) by mouth Daily 100 tablet 3 glucose blood test strip 1 each by Other route in the morning and 1 each in the evening and 1 each before bedtime. ONE TOUCH ULTRA STRIPS DX: e11.65. 100 each 1 insulin glargine (Toujeo Max SoloStar) 300 UNIT/ML injection Inject 20 Units under the skin at bedtime insulin lispro (HumaLOG) 100 UNIT/ML injection Inject 1-4 times per day as directed. insulin pen needle (BD Pen Needle Cass 2nd Gen) 32G x 4 mm misc USE DIRECTED ONCE DAILY 100 each3 insulin syringe-needle U-100 31G X 5/16 0.5 mL misc Inject under the skin 2 (two) times a day. Useas instructed lidocaine (Lidoderm) 5 % patch PLACE 1 PATCH ON MOST PAINFUL AREA ON SKIN ONCE DAILY NEEDED FOR PAIN *ON FOR 12HRS/OFF FOR 12HRS (Patient not taking: Reported on 09/13/2024) meloxicam (Mobic) 15 MG tablet Take 1 tablet (15 mg) by mouth Daily 100 tablet 3 metoprolol succinate XL (Toprol-XL) 25 MG 24 hr tablet Take 1 tablet (25 mg) by mouth Daily 100 tablet 3 nitroglycerin (Nitrostat) 0.[address] 0.3 mg under the tongue every 5 (five) minutes if needed for chest pain. nystatin (Klayesta) 689122 UNIT/GM powder Apply topically 2 (two) times a day 60 g 1 omeprazole (PriLOSEC) [address] capsule Take 1 capsule (40 mg) by mouth in the morning. Take before meals. Do not crush or chew.. 100 capsule 3 pen needle 31G x 6 mm misc 2 (two) times a day. Use as instructed potassium chloride CR (Klor-Con M20) 20 MEQ ER tablet Take 20 mEq by mouth in the morning and 20 mEq before bedtime. Do not crush or chew.. pregabalin (Lyrica) 25 MG capsule Take 25 mg by mouth in the morning and 25 mg before bedtime. sacubitril-valsartan (Entresto) 24-26 MG tablet 1/2 tablet by mouth twice a day 90 tablet 3 spironolactone (Aldactone) 25 MG tablet Take 1 tablet (25 mg) by mouth Daily 100 tablet 3 ticagrelor (Brilinta) 90 MG tablet Take 90 mg by mouth in the morning and 90 mg before bedtime. torsemide (Demadex) 20 MG tablet Take 1 tablet (20 mg) by mouth Daily 30 tablet 11 No current facility-administered medications for this visit. Review of Systems List of current healthcare providers: Patient Care Team: Abraham Cesar MD as PCP - General (Internal Medicine) Abraham Cesar MD as PCP - ACO [employer] Annual Visit Over the past 2 weeks, how often have you been bothered by any of the following problems? Little interest or pleasure in doing things: Not at all Feeling down, depressed, or hopeless: Not at all Patient Health Questionnaire-2 Score: 0 [place] Fall Risk History of Falling, Immediate or Within 3 Months: No Health Risk Assessment Form Do you need help eating, bathing, using the toilet, dressing, or getting around your home?: No Can you prepare your own meals?: Yes Can you do your own housework without help?: Yes Can you shop for groceries or clothes without help?: No Do you exercise for about 20 minutes 3 or more days a week?: Yes How confident are you that you can control and manage most of your health problems?: Very confident Can you mange your money, credit cards and accounts, pay bills and taxes?: Yes Cognitive Screening Three Word Registration: Banana, Foss, Chair Clock Drawing: Normal Clock - 2 Three Word Recall: All 3 words correct - 3 Total Score (0-5 Points): 5 Pain Assessment Pain Score: 5 - Moderate pain Advance Care Planning Do you have a living will?: Yes Do you have a medical power of tax associate attorney?: Yes Objective : BP 132/66 Pulse 84 Resp 16 Ht 5' 2.4 Wt 191 lb SpO2 96% BMI 34.49 kg/m No results found. Physical Exam Constitutional: General: She is not in acute distress. Appearance: She is well-developed. She is obese. HENT: Head: Normocephalic and atraumatic. Eyes: General: No scleral icterus. Conjunctiva/sclera: Conjunctivae normal. Cardiovascular: Rate and Rhythm: Normal rate and regular rhythm. Heart sounds: Normal heart sounds. No murmur heard. Pulmonary: Effort: Pulmonary effort is normal. No respiratory distress. Breath sounds: Normal breath sounds. No wheezing, rhonchi or rales. Musculoskeletal: Right lower le+ Edema present. Left lower le+ Edema present. Comments: Left lower leg with linear scabs, healing, no active drainage, skin is peeling, dry, milderythema beneath peeling skin with mild increased warmth to touch Skin: General: Skin is warm and dry. Neurological: General: No focal deficit present. Mental Status: She is alert and oriented to person, place, and time. Gait: Gait abnormal (Rolling walker for ambulation). Psychiatric: Mood and Affect: Mood normal. Behavior: Behavior normal. Office Visit on 10/13/2024 Component Date Value Ref Range Status Hemoglobin A1C 10/13/2024 8.1 Final Clinisync Result Encounter on 09/17/2024 Component Date Value Ref Range Status SODIUM 09/17/2024 139 136 - 145 mmol/L Final POTASSIUM 09/17/2024 3.7 3.5 - 5.1 mmol/L Final CHLORIDE 09/17/2024 103 98 - 107 mmol/L Final CARBON DIOXIDE 09/17/2024 26.9 21.0 - 32.0 mmol/L Final ANION GAP 09/17/2024 12.8 Final GLUCOSE 09/17/2024 237 (H) 74 - 106 mg/dL Final BLOOD UREA NITROGEN 09/17/2024 16.0 7.0 - 18.0 mg/dL Final CREATININE 09/17/2024 0.93 0.55 - 1.02 mg/dL Final [facility] EGFR-AF EQUATORIAL GUINEAN 09/17/2024 >60 >=60 mL/min/1.73m 2 Final [facility] EGFR-NON AF EQUATORIAL GUINEAN 09/17/2024 59 (L) >=60 mL/min/1.73m 2 Final BUN CREATININE RATIO 09/17/2024 17.2 Final CALCIUM 09/17/2024 9.9 8.5 - 10.1 mg/dL Final [facility] WBC 09/17/2024 10.7 4.0 - 11.0 10 3/uL Final [facility] RBC 09/17/2024 3.79 (L) 4.20 - 5.40 10 6/uL Final [facility] HGB 09/17/2024 11.5 (L) 12.0 - 16.0 g/dL Final [facility] HCT 09/17/2024 36.5 36.0 - 48.0 % Final [facility] MCV 09/17/2024 96.3 81.0 - 99.0 fL Final [facility] MCH 09/17/2024 30.3 26.7 - 34.0 pg Final [facility] MCHC 09/17/2024 31.5 29.9 - 35.2 g/dL Final [facility] RDW 09/17/2024 15.7 (H) 11.0 - 15.0 % Final [facility] PLT 09/17/2024 371 150 - 450 10 3/uL Final [facility] MPV 09/17/2024 9.7 9.5 - 13.5 fL Final NEUTROPHILS PERCENT AUTO 09/17/2024 75.6 (H) 43.0 - 75.0 % Final LYMPHOCYTES PERCENT AUTO 09/17/2024 9.9 (L) 20.5 - 60.0 % Final MONOCYTES PERCENT AUTO 09/17/2024 12.5 (H) 1.7 - 12.0 % Final TB[facility] EO % 09/17/2024 1.0 0.9 - 7.0 % Final BASOPHILS PERCENT AUTO 09/17/2024 0.6 0.2 - 2.0 % Final IMMATURE GRANULOCYTES PCT AUTO 09/17/2024 0.4 0.0 - 0.5 % Final NEUTROPHILS ABSOLUTE AUTO 09/17/2024 8.1 (H) 1.4 - 6.5 10 3/uL Final LYMPHOCYTES ABSOLUTE AUTO 09/17/2024 1.1 (L) 1.2 - 3.8 10 3/uL Final MONOCYTES ABSOLUTE AUTO 09/17/2024 1.3 (H) 0.3 - 0.8 10 3/uL Final TBH EO # 09/17/2024 0.1 0.0 - 0.7 10 3/uL Final BASOPHILS ABSOLUTE AUTO 09/17/2024 0.1 0.0 - 0.1 10 3/uL Final IMMATURE GRANULOCYTES ABS AUTO 09/17/2024 0.04 (H) 0.00 - 0.03 10 3/uL Final Assessment/Plan : The following health maintenance schedule was reviewed with the patient and provided in printed form in the after visit summary: Health Maintenance Topic Date Due Pneumococcal Vaccine: 65+ Years (1 of 2 - PCV) Never done Diabetes: Urine Protein Screening 03/10/2024 Mammogram 12/03/2024 Colorectal Cancer Screening 09/03/2025 (Originally 1950) Diabetes: Retinopathy Screening 11/17/2024 Diabetes: Hemoglobin A1C 01/13/2025 Influenza Vaccine (Season Ended) 2025 Advance Care Planning Patient agreed to discuss advance care planning at today's wellness visit. We discussed that an advance directive is a legal document that only goes into effect if the patient is incapacitated and unable to speak for himself or herself. This would help healthcare providers to ensure that the patient gets the care that he or she wishes to receive. The goal is to provide a patient with the best possible quality of life. Encouraged patient to obtain a living will and durable power of tax associate attorney for healthcare. We discussed telling brooks people about their advance directives such as close family members, and requested a copy to scan into the patient's EHR. An advance directive packet was offered to the patient. Assessment/Plan Diagnoses and all orders for this visit: Routine general medical examination at health care facility ACP (advance care planning) Type 2 diabetes mellitus with diabetic polyneuropathy, with long-term current use of insulin ([facility]) - POCT glycosylated hemoglobin (Hb A1C) docked device Type 2 diabetes mellitus with hyperglycemia, with long-term current use of insulin ([facility]) - glucose blood test strip; 1 each by Other route in the morning and 1 each in the evening and 1 each before bedtime. ONE TOUCH ULTRA STRIPS DX: e11.65. Rheumatoid arthritis, unspecified Estrogen deficiency - DEXA bone density; Future Breast screening - Bilateral screening mammogram; Future Follow up in about 2 months (around 12/13/2024) for Routine F/U, DM- A1C. Orders Placed This Encounter Procedures DEXA bone density Standing Status: Future Expected Date: 10/13/2024 Expiration Date: 10/13/2025 Reason for exam:: see dx Bilateral screening mammogram Standing Status: Future Expected Date: 10/13/2024 Expiration Date: 12/13/2025 Reason for exam:: see dx POCT glycosylated hemoglobin (Hb A1C) docked device Electronically signed by Abraham Cesar MD on October 13, 2024 documented in this encounterFre[facility] [id number] Evaluation note* Diagnosis Onset Date Resolution Status Admit Date Diabetes mellitus, type 2 acute October 11, 2024 10:25am Edema of both lower extremities acut e October 11, 2024 10:25am Neuropathic pain acute October 11, 2024 10:25am Ulcer of left heel acute October 10:25am Ulcer of right heel acute October 112024 10:25am Venous insufficiency (chroni c) (peripheral) acute October 11, 2024 10 :25am Venous stasis dermatitis of both lower extremities acute October 11, 2024 10:25am Wound infection acute October 11, 2024 10:25am [facility] Work Phone: 1(457) 784-590004-15-2025 History of Present illness Narrative* Narinder Meredith, DPM - 09/21/2024 10:50 AM EDT Patient: Laura Lawson : 1950 PCP: Abraham Cesar MD SUBJECTIVE This is a 73 [...] stasis to b/l lower extremities. Patient has pack of heels wrapped in seen at Wound Center for heel ulcerations and home Health is taking care of Allergies: Allergies Allergen Reactions Gabapentin Palpitations Tramadol Other Past Medical History: Past Medical History: Diagnosis Date Angiomyolipoma of kidney Arthritis Unknown COPD (chronic obstructive pulmonary disease) ([facility]) Coronary artery disease (CAD) excluded Diabetes ([facility]) GERD (gastroesophageal reflux disease) Gout Hyperlipidemia ([facility]) Hypertension ([facility]) Kidney stones Obesity Sleep apnea Thyroid disease ([facility]) Type 2 diabetes mellitus Umbilical hernia without obstruction and without gangrene [...] tablet,Rfl: 3 baclofen (Lioresal) 10 MG tablet, Take 1 [...] mouth Daily, Disp: 100 tablet, Rfl: 3 glucose blood test strip, 1 each by Other route in the morning and 1 each in the evening and 1 eachbefore bedtime. ONE TOUCH ULTRA STRIPS DX: e11.65., Disp: 100 each, Rfl: 1 insulin glargine (Toujeo Max SoloStar) 300 UNIT/ML [...] chest pain., Disp: , Rfl: nystatin (Klayesta) [id number] UNIT/GM powder, Apply topically 2 (two) times a day, Disp: 60 g, Rfl: 1 omeprazole (PriLOSEC) [address] capsule, Take 1 capsule (40 mg) by mouth in the morning. Take beforemeals. Do not crush or chew.., Disp: 100 capsule, Rfl: 3 pen needle 31G x [...] Strain: Low Risk (04/21/2024) Received from [facility] Overall Financial Resource Strain (CARDIA) Difficulty of Paying Living Expenses: Not hard at all Food Insecurity: No Food Insecurity (04/21/2024) Received from [facility] Hunger Vital Sign Within the past 12 months, you worried that your food would run out before you got the money to buymore.: Never true Ran Out of Food in the Last Year: Not on file Transportation Needs: No Transportation Needs (04/21/2024) Received from [facility] Transportation In the past 12 months, has lack of transportation kept you from medical appointments or from getting medications?: No Lack of Transportation (Non-Medical): Not on file Physical Activity: Inactive (02/23/2024) Exercise Vital Sign Days of Exercise per Week: 0 days Minutes of Exercise per Session: 0 min Stress: No Stress Concern Present (02/23/2024) [place] [facility] [employer] [facility] - Occupational Stress Questionnaire Feeling of Stress : Not at all Social Connections: Moderately Isolated (02/23/2024) Social Connection and Isolation Panel [NHANES] Frequency of Communication with Friends and Family: More than three times a week Frequency of Social Gatherings with Friends and Family: Once a week Attends Christian Services: Never Active Member of Clubs or Organizations: Yes Attends Club or Organization Meetings: 1 to 4 times per year Marital Status: Never Intimate Partner Violence: Unknown (04/21/2024) Received from [facility] Humiliation, Afraid, Rape, and Kick questionnaire Fear of Current or Ex-Partner: No Emotionally Abused: Not on file Physically Abused: Not on file Sexually Abused: Not on file Housing Stability: Low Risk (04/21/2024) Received from [facility] Housing Stability Vital Sign In the last 12 months, was there a time when you were not able to pay the mortgage or rent on time?: No Number of Times Moved in the Last Year: Not on file At any time in the past 12 months, were you homeless or living in a nursing home (including now)?: No ROS: Gastrointestinal: denies abdominal [...] PT and DP pulses bilaterally NEURO: 5.07 [place] Avi monofilament test diminished to digits and forefoot bilaterally 125Hz tuning fork diminished to 1st MPJ bilaterally ORTHO: Positive pain on palpation to toenails of the left 1,2,3,4,5 toes and right 1,2,3,4,5 toes ASSESSMENT 1. Diabetes mellitus due to underlying condition with diabetic polyneuropathy, without long-term current use of insulin ([facility]) 2. Pain due to onychomycosis of toenails of both feet 3. Peripheral venous insufficiency PLAN Discussed proper foot care with patient today. Debride nails in length and thickness digits 1 through 10 Visit spent with patient education on condition and treatment of condition. Patient to keep feet elevated when nonweightbearing Continue with wound care Narinder Meredith DPM documented in this encounterFreeman Cancer [id number] History of Present illness Narrative* HOLLEY White - 09/13/2024 1:00 PM EDT Images from the original note were not included. HPI Cellulitis Additional comments: At last o/v she was started on Cephalexin but did not get it until just recently so still has a week left of the ATB. He leg is not seeping like it was but is very dry and would like to know what she can use on the dryness. She also will have her 1st appt with wound care today for her foot. Medication Problem Additional comments: She would like to discuss going back on Trulicity since she is gaining weight off of it. Last edited by Shannan Villanueva LPN on 09/13/2024 1:14 PM. Subjective Patient ID: Laura Lawson is a 73 y.o. female who presents for CHF. Laura is present today for follow up CHF. At last o/v she was started on Torsemide and feels attimes it is better but does admit to not taking it everyday d/t having to urinate more often. Was taken off of the Trulicity previous, would like to restart it due to weight gain. Has not been doing the Humalog injections with her meals, states she never thinks about doing it. Also did not increase the Lantus to 20 units as she was instructed either. Because I'm bad. I justdon't get around to taking them when I should. States she has used the Humalog occasionally at night with the Lantus, makes sure that she eats a snack if she takes it. Current Outpatient Medications on File Prior to Visit Medication Sig Dispense Refill allopurinol (Zyloprim) 300 MG tablet Take 1 tablet (300 mg) by mouth Daily 100 tablet 3 apixaban (Eliquis) 5 MG tablet Take 5 mg by mouth in the morning and 5 mg before bedtime. atorvastatin (Lipitor) 80 MG tablet TAKE 1 TABLET BY MOUTH EVERY DAY AT BEDTIME 100 tablet 3 baclofen (Lioresal) 10 MG tablet Take 1 tablet (10 mg) by mouth in the morning and 1 tablet (10 mg)before bedtime. 200 tablet 2 BD Insulin Syringe U/F 31G X 5/16 1 ML misc USE DIRECTED UNDER THE SKIN TWO TIMES DAILY 180 each 3 cephalexin (Keflex) 500 MG capsule Take 1 capsule (500 mg) by mouth in the morning and 1 capsule (500 mg) before bedtime. Do all this for 10 days. 20 capsule 0 dapagliflozin (Farxiga) 5 MG Take 1 tablet (5 mg) by mouth Daily 100 tablet 3 ezetimibe (Zetia) 10 MG tablet Take 1 tablet (10 mg) by mouth Daily 100 tablet 3 glucose blood test strip 1 each by Other route in the morning and 1 each in the evening and 1 each before bedtime. ONE TOUCH ULTRA STRIPS DX: e11.65. 100 each 1 insulin glargine (Toujeo Max SoloStar) 300 UNIT/ML injection Inject 20 Units under the skin at bedtime insulin lispro (HumaLOG) 100 UNIT/ML injection Inject 1-4 times per day as directed. insulin pen needle (BD Pen Needle Cass 2nd Gen) 32G x 4 mm misc USE DIRECTED ONCE DAILY 100 each3 insulin syringe-needle U-100 31G X 5/16 0.5 mL misc Inject under the skin 2 (two) times a day. Useas instructed lidocaine (Lidoderm) 5 % patch PLACE 1 PATCH ON MOST PAINFUL AREA ON SKIN ONCE DAILY NEEDED FOR PAIN *ON FOR 12HRS/OFF FOR 12HRS (Patient not taking: Reported on 09/13/2024) meloxicam (Mobic) 15 MG tablet Take 1 tablet (15 mg) by mouth Daily 100 tablet 3 metoprolol succinate XL (Toprol-XL) 25 MG 24 hr tablet Take 1 tablet (25 mg) by mouth Daily 100 tablet 3 nitroglycerin (Nitrostat) 0.[address] 0.3 mg under the tongue every 5 (five) minutes if needed for chest pain. nystatin (Klayesta) [id number] UNIT/GM powder Apply topically 2 (two) times a day 60 g 1 omeprazole (PriLOSEC) [address] capsule Take 1 capsule (40 mg) by mouth in the morning. Take before meals. Do not crush or chew.. 100 capsule 3 pen needle 31G x 6 mm misc 2 (two) times a day. Use as instructed potassium chloride CR (Klor-Con M20) 20 MEQ ER tablet Take 20 mEq by mouth in the morning and 20 mEq before bedtime. Do not crush or chew.. pregabalin (Lyrica) 25 MG capsule Take 25 mg by mouth in the morning and 25 mg before bedtime. sacubitril-valsartan (Entresto) 24-26 MG tablet 1/2 tablet by mouth twice a day 90 tablet 3 spironolactone (Aldactone) 25 MG tablet Take 1 tablet (25 mg) by mouth Daily 100 tablet 3 ticagrelor (Brilinta) 90 MG tablet Take 90 mg by mouth in the morning and 90 mg before bedtime. torsemide (Demadex) 20 MG tablet Take 1 tablet (20 mg) by mouth Daily 30 tablet 11 [DISCONTINUED] allopurinol (Zyloprim) 300 MG tablet TAKE 1 TABLET DAILY 100 tablet 3 [DISCONTINUED] cephalexin (Keflex) 500 MG capsule Take 1 capsule (500 mg) by mouth in the morning and 1 capsule (500 mg) before bedtime. Do all this for 10 days. 20 capsule 0 [DISCONTINUED] dapagliflozin (Farxiga) 5 MG Take 5 mg by mouth Daily [DISCONTINUED] ezetimibe (Zetia) 10 MG tablet Take 1 tablet (10 mg) by mouth in the morning. 30 tablet 11 [DISCONTINUED] insulin glargine (Lantus SoloStar) 100 UNIT/ML pen Inject 10 Units under the skin inthe morning. 3 mL 11 [DISCONTINUED] insulin glargine (Lantus SoloStar) 100 UNIT/ML pen Inject 10 Units under the skin inthe morning. 3 mL 11 [DISCONTINUED] meloxicam (Mobic) 15 MG tablet Take 1 tablet (15 mg) by mouth Daily Take with food. 100 tablet 3 [DISCONTINUED] metoprolol succinate XL (Toprol-XL) 25 MG 24 hr tablet Take 12.5 mg by mouth Daily Do not crush or chew. No current facility-administered medications on file prior [...] Thyroid disease (CMS/HCC) Type 2 diabetes mellitus Umbilical hernia without obstruction and without gangrene Past Surgical History: Procedure Laterality Date APPENDECTOMY BI MAMMOGRAM DIAGNOSTIC BILATERAL 2014 CARPAL TUNNEL RELEASE CORONARY ANGIOPLASTY 04/19/2024 PCI. 90% LAD In-Stent Restenosis CORONARY ANGIOPLASTY WITH STENT PLACEMENT 2013 CT ANGIO HEAD 07/04/2023 CT ANGIO HEAD 07/04/2023 CT ANGIOGRAM NECK 07/04/2023 CT ANGIOGRAM NECK 07/04/2023 EYE EXAM 2013 Disease:Diabetes mellitus, type 2 HERNIA REPAIR [facility] ANT INTERBODY MIN DSC LUMBAR 03/18/2022 L3-L5 Anterior Lumbar Interbody Fusion, Pedicle Screw Replacement SACROILIAC JOINT INJECTION Right 05/19/2024 SPINE SURGERY [id number] THYROIDECTOMY TOTAL VAGINAL HYSTERECTOMY Visit Vitals BP 118/70 Pulse 52 Resp 16 Ht 5' 2.4 Wt 210 lb 9.6 oz SpO2 99% BMI 38.03 kg/m Smoking Status Never BSA 2.05 m Review of Systems Constitutional: Positive for unexpected weight change (Gain). Negative for chills, fatigue and fever. Respiratory: Negative for cough, shortness of breath and wheezing. Cardiovascular: Positive for leg swelling. Negative for chest pain and palpitations. Gastrointestinal: Negative for abdominal pain, constipation, diarrhea, nausea and vomiting. Skin: Positive for wound. Negative for rash. Objective Physical Exam Constitutional: General: She is not in acute distress. Appearance: She is well-developed. She is obese. HENT: Head: Normocephalic and atraumatic. Eyes: General: No scleral icterus. Conjunctiva/sclera: Conjunctivae normal. Cardiovascular: Rate and Rhythm: Normal rate and regular rhythm. Heart sounds: Normal heart sounds. No murmur heard. Pulmonary: Effort: Pulmonary effort is normal. No respiratory distress. Breath sounds: Normal breath sounds. No wheezing, rhonchi or rales. Musculoskeletal: Right lower le+ Edema present. Left lower le+ Edema present. Comments: Left lower leg with linear scabs, healing, no active drainage, skin is peeling, dry, milderythema beneath peeling skin with mild increased warmth to touch Skin: General: Skin is warm and dry. Neurological: General: No focal deficit present. Mental Status: She is alert and oriented to person, place, and time. Gait: Gait abnormal (Rolling walker for ambulation). Psychiatric: Mood and Affect: Mood normal. Behavior: Behavior normal. Assessment/Plan Diagnoses and all orders for this visit: Type 2 diabetes mellitus with diabetic polyneuropathy, with long-term current use of insulin ([facility]) -Patient states that her blood glucose runs 200-300 whenever she checks it. She says that she would not be able to be compliant with Humalog, preferring to take it inconsistently and at incorrect times, ie before bed, exhibited impaired understanding to the medication regimen, and some limited willingness to do so. -Advised patient to increase Lantus dose to 20 units at bedtime, and discontinue Humalog in order to control blood glucose while reducing the risk of hypoglycemic event considering non-compliance to Humalog. She states she will continue to use the Humalog when she wishes to do so. -Patient also states she has Toujeo at home. She would like to go back to that after finishing the Lantus she has already filled. Advised her to continue 20 units with the Toujeo once she switches back. Chronic systolic congestive heart failure ([facility]) -Patient taking torsemide occasionally, when it is convenient for her and she does not need to leave the house. Encouraged patient to use the medication as prescribed. She continues to have leg swelling on exam today. 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, limited to breakdown of skin ([facility]) -Patient will be following with Wound Care Clinic today. Cellulitis of left lower extremity -Complete entire regimen of Keflex, and use Aquaphor as needed for dry skin/ peeling. Gently clean area with soap and water daily. Contact office if symptoms do not continue to improve. Morbid obesity (CMS/HCC) - Will restart Trulicity per patient request and weight gain. Will monitor weight closely during follow up. The medication was previously discontinued due to appetite suppression and 50 pounds relatively quick weight loss. Non compliance w medication regimen - Educated patient of risk factors associated with her chronic conditions if medication is not usedfor control as prescribed. Discussed risk of worsening kidney function, heart disease, vision difficulties, difficulty maintaining a healthy weight, as outcomes from non-compliance with recommended treatment plans. Follow up in about 4 weeks (around 10/11/2024) for Medication Follow Up, Diabetes. 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 (CMS/HCC) Low back [...] of CHF (congestive heart failure) (CMS/HCC) COVID-19 Acquired spondylolisthesis Acute on chronic diastolic heart failure (CMS/HCC) Coronary artery disease (CAD) excluded Diastolic dysfunction GERD (gastroesophageal reflux disease) History of carpal tunnel surgery of right wrist Hyperlipidemia Impaired mobility and endurance Localized edema Lumbar radiculopathy Morbid obesity with body mass index (BMI) of 45.0 to 49.9 in adult ([facility]/HCC) Paresthesia of skin Primary osteoarthritis of both knees S/P drug eluting coronary stent placement Ulcer of foot due to type 2 diabetes mellitus (CMS/HCC) Pericardial effusion CAD in muscogee artery Coronary artery disease Coronary artery disease involving muscogee coronary artery of muscogee heart with other form of angina pectoris Chronic systolic heart failure ([facility]/HCC) Combined forms of age-related cataract of both eyes History of lumbar fusion Nonexudative age-related macular degeneration Thyroid disease Angina pectoris Lumbar stenosis with neurogenic claudication Acquired absence of both cervix and uterus Acute cystitis without hematuria Carpal tunnel syndrome, left upper limb Cervicalgia Chronic kidney disease, stage 3a (CMS/HCC) Cognitive communication deficit Dysphagia, oral phase History of DVT in adulthood Impaired skin integrity Mild mitral regurgitation Muscle weakness (generalized) Other chronic pain Pain in left knee Type 2 diabetes mellitus with diabetic chronic kidney disease ([facility]/HCC) Unspecified systolic (congestive) heart failure ([facility]) Family History Problem Relation Name [...] ISR. On 07/07/2024 she was admitted to [facility] emergency room with chest pain and low blood pressure. Her ECG was consistent with STEMI. She eventually was taken to the [facility] and underwent stent placement to the mid LAD. Echocardiogram (more content not included)...[facility] History of Present illness Narrative* Abraham Cesar MD - 09/03/2024 11:30 AM EDT Images from the original note were not included. HPI Leg Swelling Additional comments: Left lower leg sores on bilateral feet Additional comments: Pt is requesting referral to wound clinic at [facility] Last edited by Anisa Shaffer LPN on 09/03/2024 11:44 AM. HPI Leg Swelling Additional comments: Left lower leg sores on bilateral feet Additional comments: Pt is requesting referral to wound clinic at [facility] Last edited by Anisa Shaffer LPN on 09/03/2024 11:44 AM. Subjective Patient ID: Laura Lawson is a 73 y.o. female who presents for Diabetes, Leg Swelling (Left lower leg), and sores on bilateral feet (Pt is requesting referral to wound clinic at [facility]). Diabetes Mellitus Patient presents for follow up of diabetes. Current symptoms include: hyperglycemia. Patient denieshypoglycemia , nausea, paresthesia of the feet, visual disturbances, and vomiting. Evaluation to date has included: fasting blood sugar, fasting lipid panel, and hemoglobin A1C. Home sugars: BGs range between 210 and 280 Pt made med changes as directed last visit She states she has been feeling better and has been able to eat more she states she knows she is eating things she should not be eating Pt noticed swelling in left lower leg last week reports she is taking torsemide daily leg is seeping home health wrapped leg for her Pt states she has had some sores on bilateral heels x 4 months gradually worsening would like to see wound clinic Diabetes Pertinent negatives for diabetes include no chest pain and no fatigue. Current Outpatient Medications on File Prior to Visit Medication Sig Dispense Refill allopurinol (Zyloprim) 300 MG tablet TAKE 1 TABLET DAILY 100 tablet 3 apixaban (Eliquis) 5 MG tablet Take 5 mg by mouth in the morning and 5 mg before bedtime. atorvastatin (Lipitor) 80 MG tablet TAKE 1 TABLET BY MOUTH EVERY DAY AT BEDTIME 100 tablet 3 baclofen (Lioresal) 10 MG tablet Take 1 tablet (10 mg) by mouth in the morning and 1 tablet (10 mg)before bedtime. 200 tablet 2 BD Insulin Syringe U/F 31G X 5/16 1 ML misc USE DIRECTED UNDER THE SKIN TWO TIMES DAILY 180 each 3 dapagliflozin (Farxiga) 5 MG Take 5 mg by mouth Daily ezetimibe (Zetia) 10 MG tablet Take 1 tablet (10 mg) by mouth in the morning. 30 tablet 11 glucose blood test strip 1 each by Other route in the morning and 1 each in the evening and 1 each before bedtime. ONE TOUCH ULTRA STRIPS DX: e11.65. 100 each 1 insulin glargine (Lantus SoloStar) 100 UNIT/ML pen Inject 10 Units under the skin in the morning. 3mL 11 insulin pen needle (BD Pen Needle Cass 2nd Gen) 32G x 4 mm misc USE DIRECTED ONCE DAILY 100 each3 insulin syringe-needle U-100 31G X 5/16 0.5 mL misc Inject under the skin 2 (two) times a day. Useas instructed lidocaine (Lidoderm) 5 % patch PLACE 1 PATCH ON MOST PAINFUL AREA ON SKIN ONCE DAILY NEEDED FOR PAIN *ON FOR 12HRS/OFF FOR 12HRS meloxicam (Mobic) 15 MG tablet Take 1 tablet (15 mg) by mouth Daily Take with food. 100 tablet 3 metoprolol succinate XL (Toprol-XL) 25 MG 24 hr tablet Take 12.5 mg by mouth Daily Do not crush or chew. nitroglycerin (Nitrostat) 0.[address] 0.3 mg under the tongue every 5 (five) minutes if needed for chest pain. nystatin (Klayesta) 866654 UNIT/GM powder Apply topically 2 (two) times a day 60 g 1 omeprazole (PriLOSEC) [address] capsule Take 1 capsule (40 mg) by mouth in the morning. Take before meals. Do not crush or chew.. 100 capsule 3 pen needle 31G x 6 mm misc 2 (two) times a day. Use as instructed potassium chloride CR (Klor-Con M20) 20 MEQ ER tablet Take 20 mEq by mouth in the morning and 20 mEq before bedtime. Do not crush or chew.. pregabalin (Lyrica) 25 MG capsule Take 25 mg by mouth in the morning and 25 mg before bedtime. sacubitril-valsartan (Entresto) 24-26 MG tablet 1/2 tablet by mouth twice a day 90 tablet 3 spironolactone (Aldactone) 25 MG tablet Take 1 tablet (25 mg) by mouth Daily 100 tablet 3 ticagrelor (Brilinta) 90 MG tablet Take 90 mg by mouth in the morning and 90 mg before bedtime. [DISCONTINUED] torsemide (Demadex) 10 MG tablet Take 10 mg by mouth Daily [DISCONTINUED] Trulicity 1.5 MG/0.5ML solution auto-injector INJECT 1.5 MG UNDER THE SKIN ONCE A WEEK 2 mL 12 No current facility-administered medications on file prior [...] Thyroid disease (CMS/HCC) Type 2 diabetes mellitus Umbilical hernia without obstruction and without gangrene Past Surgical History: Procedure Laterality Date APPENDECTOMY BI MAMMOGRAM DIAGNOSTIC BILATERAL 2014 CARPAL TUNNEL RELEASE CORONARY ANGIOPLASTY 04/19/2024 PCI. 90% LAD In-Stent Restenosis CORONARY ANGIOPLASTY WITH STENT PLACEMENT 2013 CT ANGIO HEAD 07/04/2023 CT ANGIO HEAD 07/04/2023 CT ANGIOGRAM NECK 07/04/2023 CT ANGIOGRAM NECK 07/04/2023 EYE EXAM 2013 Disease:Diabetes mellitus, type 2 HERNIA REPAIR [facility] ANT INTERBODY MIN DSC LUMBAR 03/18/2022 L3-L5 Anterior Lumbar Interbody Fusion, Pedicle Screw Replacement SACROILIAC JOINT INJECTION Right 05/19/2024 SPINE SURGERY [id number] THYROIDECTOMY TOTAL VAGINAL HYSTERECTOMY Visit Vitals BP 126/70 Pulse 68 Ht 5' 2.4 Wt 205 lb SpO2 99% BMI 37.02 kg/m Smoking Status Never BSA 2.02 m Review of Systems Constitutional: Negative for fatigue. Cardiovascular: Negative for chest pain. Objective Physical Exam Constitutional: General: She is not in acute distress. Appearance: Normal appearance. She is well-developed. She is obese. She is ill-appearing. HENT: Head: Normocephalic and atraumatic. Eyes: General: [...] with going from seated to standing position. Erythema R side distal 1/2 of lower leg Bilateral heel ulcers Skin: General: Skin is warm and dry. Neurological: General: No focal deficit present. Mental Status: She is alert and oriented to person, place, and time. Gait: Gait abnormal. Comments: Using rolling walker for ambulation. Psychiatric: Mood and Affect: Mood normal. Behavior: Behavior normal. Assessment/Plan Diagnoses and all orders for this visit: Type 2 diabetes mellitus with diabetic polyneuropathy, with long-term current use of insulin (CMS/HCC) Chronic systolic congestive heart failure (CMS/HCC) - torsemide (Demadex) 20 MG tablet; Take 1 tablet (20 mg) by mouth Daily Muscle weakness (generalized) Peripheral venous insufficiency - torsemide (Demadex) 20 MG tablet; Take 1 tablet (20 mg) by mouth Daily 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, limited to breakdown of skin ([facility]) - Ambulatory referral to Wound Clinic; Future Cellulitis of left lower extremity - cephalexin (Keflex) 500 MG capsule; Take 1 capsule (500 mg) by mouth in the morning and 1 capsule(500 mg) before bedtime. Do all this for 10 days. Type 2 diabetes mellitus with other specified complication, with long-term current use of insulin ([facility]) - insulin lispro (HumaLOG) 100 UNIT/ML injection; Inject 1-4 times per day as directed. Follow up in about 10 days (around 09/13/2024) for F/U med changes. documented in this encounterFreeman Cancer [id number] NotePatient stated that at her last Fam Med appt, her PCP discontinued Trulicity due to decreased appetite. However, patient's BG readings have been > 180 post-prandially. Informed patient that more stricter BG control is needed. PCP restarted Lantus at 10 units daily in addition to Farxiga 10mg daily. Will defer future management to PCP to decrease risk of medication errors in setting of multiple providers. Slim HannonD Cardiology Outpatient Clinical Pharmacist 08/23/24[facility] NotePharmD Cardiology Consult - GLP1 Management Referring Provider: Dr. Bhargav [facility] Location: [facility] Most recent visit: 07/19/[address] [...] on Farxiga 10mg daily. Recently discharge from [facility]. Has not taken Trulicity in past 2 [...] Visit Follow up with Cardiology: 09/03/24 Suzanne Crawley, SlimD [facility] 08/06/24[facility]25 NoteUT Cardiology - [facility] Subjective Laura Lawson is a 73 y.o. year old female patient being seen for follow up echo done a few weeks ago. She was admitted to [facility] last month for hematuria and UTI. She says since then she was admitted to [facility] for chest pain. 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 (CMS/HCC) Low back pain Morbid obesity ([facility]/HCC) Neoplasm of uncertain behavior of kidney Obstructive sleep apnea syndrome Osteoarthritis of knee Osteoporosis Peripheral venous insufficiency Polyneuropathy due to type 2 diabetes mellitus ([facility]/HCC) Preoperative evaluation to rule out surgical contraindication Pulmonary function studies abnormal Pure hypercholesterolemia Renal mass Skin sensation disturbance Type 2 diabetes mellitus without complication (CMS/HCC) Umbilical hernia Uric acid nephrolithiasis NSTEMI (non-ST elevated myocardial infarction) ([facility]/HCC) Acute exacerbation of CHF (congestive heart failure) ([facility]/HCC) COVID-19 Acquired spondylolisthesis Acute on chronic diastolic heart failure ([facility]) Coronary artery disease (CAD) excluded Diastolic dysfunction GERD (gastroesophageal reflux disease) History of carpal tunnel surgery of right wrist Hyperlipidemia Impaired mobility and endurance Localized edema Lumbar radiculopathy Morbid obesity with body mass index (BMI) of 45.0 to 49.9 in adult ([facility]) Paresthesia of skin Primary osteoarthritis of both knees S/P drug eluting coronary stent placement Ulcer of foot due to type 2 diabetes mellitus ([facility]/HCC) Pericardial effusion CAD in muscogee artery Coronary artery disease Coronary artery disease involving muscogee coronary artery of muscogee heart with other form of angina pectoris ([facility]/HCC) Chronic systolic heart failure ([facility]) Combined forms of age-related cataract of both eyes History of lumbar fusion Nonexudative age-related macular degeneration Thyroid disease Angina pectoris ([facility]/HCC) Lumbar stenosis with neurogenic claudication Acquired absence of both cervix and uterus Acute cystitis without hematuria Carpal tunnel syndrome, left upper limb Cervicalgia Chronic kidney disease, stage 3a (CMS/HCC) Cognitive communication deficit Dysphagia, oral phase History of DVT in adulthood Impaired skin integrity Mild mitral regurgitation Muscle weakness (generalized) Other chronic pain Pain in left knee Type 2 diabetes mellitus with diabetic chronic kidney disease (CMS/HCC) Unspecified systolic (congestive) heart failure ([facility]) Family History Problem Relation Name [...] ISR. On 07/07/2024 she was admitted to [facility] (more content not included)...[facility]-2025 Evaluation + Plan noteExtracted from: Title:Discharge Note Author:Selvin Yeh DO Date:07/09/24 Discharge To, Anticipated II - [facility] Prescriptions metoprolol succinate 25 mg ER Tab, [...] mg= 1 cap(s), Oral, Daily Potassium Chloride (Tbc-Jscj-Miu M20) 20 mEq oral tablet, extended release, 20 mEq= 1 tab(s), Oral, Daily pregabalin 25 mg Cap, 25 mg= 1 cap(s), Oral, BID spironolactone 25 mg Tab, 12.5 mg= 0.5 tab(s), Oral, Daily torsemide 20 mg Tab, 10 mg= 0.5 tab(s), Oral, Daily Trulicity Pen 3 mg/0.5 mL subcutaneous solution, 1.5 mg, SubCutaneous, qWeek With When Contact Information MELBA BREWER, ABRAHAM Enriquez, [address] [address]- Additional Instructions: RUDY ZENDEJAS MD Within 1 to 2 weeks Additional Instructions: Call for followup appointment. pt needs close follow up CV - Cardiovascular PCI Discharge Instructions (Custom) Extracted from: Title:Progress/SOAP Note Author:Leandra Montana MD Date:07/08/24 Atrial fibrillation with con trolled ventricular rate Okay to restart home dose [...] artery disease) (I25.10: Atherosclerotic heart disease of muscogee coronary artery without angina pectoris) 4. History [...] Site Check Site Check Troponin Vital Signs Extracted from: Title:APSO Note Author:Selvin Yeh DO Chad e:07/08/24 1. STEMI (ST elevation myoca rdial infarction) (I21.3: ST elevation (STEMI) myocardial infarction of unspecified site) [facility] 07/07/24 stent mid LAD asa statin brilinta hold AC, restart this evening 12.5 mg metoprolol if pressure can handle Telemetry Cardiology consulted and following Ordered: [facility] Hospital Care/Day High 50 Minutes 21474 2. Heart failure with reduced ejection fraction (I50.20: Unspecified systolic (congestive) heart failure) EF as low as 20 to 30% Hold Entresto Hold hydralazine Hold Jardiance Hold spironolactone 3. CAD (coronary artery disease) (I25.10: Atherosclerotic heart disease of muscogee coronary artery without angina pectoris) Aspirin Statin 4. History of DVT in adulthood (Z86.718: Personal history of other venous thrombosis and embolism) Holding Eliquis at this time due to [facility] Will likely restart Eliquis this evening [...] Routine Capillary Glucose POC Vital Signs Weight Extracted from: Title:Admission H & P Author:Selvin Yeh DO Date:07/07/24 Patient will be admitted und er inpatient status due to estimated length of stay greater than 2 midnights. All images, labs, EKGs were reviewed DVT PPx PAS bilaterally Diet cardiac CODE STATUS full code 1. STEMI (ST elevation myocardial infarction) (I21.3: ST elevation (STEMI) myocardial infarction of unspecified site) [facility] 07/07/24 stent mid LAD asa statin brilinta hold AC 12.5 mg metoprolol if pressure can handle Telemetry Cardiology consulted and following Ordered: Initial Hospital Care/Day High 75 Minutes 79649 2. Heart failure with reduced ejection fraction (I50.20: Unspecified systolic (congestive) heart failure) EF as low as 20 to 30% Hold Entresto Hold hydralazine Hold Jardiance Hold spironolactone 3. CAD (coronary artery disease) (I25.10: Atherosclerotic heart disease of muscogee coronary artery without angina pectoris) Aspirin Statin [...] Routine Capillary Glucose POC Vital Signs Weight Extracted from: Title:Consult Note Author:Luigi Montana MD Chad e:07/07/24 1. STEMI (ST elevation myoca rdial infarction) (I21.3: ST elevation (STEMI) myocardial infarction [...] Site Check Site Check Troponin Vital Signs Extracted from: Title:ED Note Author:Tiffanie Moreno, Markos Hodge te:07/07/24 1. STEMI (ST elevation myoca rdial infarction) (I21.3: ST elevation (STEMI) myocardial infarction [...] Troponin 6 Hr. XR Chest Single View [facility] 01-31-2025 NoteDischarge Summary Admission and Discharge Information Admit Date/Time:07/07/2024 15:49 Admitting Physician - Luigi Montana MD Consulting Physician - [facility] Cardio, XXXX Luigi Montana MD Admitting Diagnoses: Discharge Order Date Discharge Patient - Ordered -- 07/09/24 11:31:00 EST, back to retirement Discharge Diagnoses 1. STEMI (ST elevation myocardial [...] blood pressure of first 57/33. ER patient's bl ood pressure was 81/49. EKG consistent with STEMI. Code STEMI was called. Cardiology saw patient inED and patient refused to have heart cath done at [facility] at first despite cardiology as well as ED physician strongly encouraging her to do so. Then arrangements were made for patient be transferred to [place] however once patient hurts she would be flying in a helicopter she said she did not realize it was that serious and agreed to have it done here. Patient was taken to [facility] stent placed mid LAD. Patient was then [...] Cardiology recommended holding Entresto until follow-up with [facility] miller head as well as other changes as noted below. Patient's symptoms improved during stay. Patient's vital signs remained stable. Discussed diagnosis and treatment plan with patient who agree and accept plan of treatment. Patient stable at discharge. Med changes Aspirin for 2 weeks Decrease Farxiga to 5 mg daily Hold Entresto until follow-up with wet process miller head Decrease spironolactone to 12.5 daily Decrease torsemide to 10 mg daily Stop hydralazine Decrease metoprolol from 75 mg daily to 12.5 mg daily Follow-up appointments [facility] in [place] within 1 to 2 weeks PCP 5 [...] Discharge Disposition Discharge To, Anticipated II - [facility] Discharge Medication List Prescriptions metoprolol succinate 25 mg ER Tab, 12.5 mg= 0.5 tab(s), Oral, Daily (more content not included)...[facility] HospitalComment on above:Result Comment: Electronically Signed By: Selvin Yeh DO.padmini\Date and Time Signed: 07/09/24 11:32 [id number] NoteEchocardiology Procedure Exam Date/Time Accession # Ordering Dr. Garcia Transthoracic 07/08/2024 14:02 EST [id number] Luigi Montana MD Complete CPT code [id number] Reason for Exam (Echo Transthoracic Complete) Chest pain Report [facility] [address] [place] [address] Adult Echocardiogram Report Name: LAURA LAWSON Study Date: 07/08/2024 01:29 PM BP: 97/57 mmHg Patient Location: [address] Bed(s) [facility] HR: 62 : 1950 Gender: Female Height: 62 in Age: 73 yrs Ethnicity: T Weight: 203 lb Reason For Study: Chest pain BSA: 1.9 m2 History: High Cholesterol,HTN,Diabetes,CAD,KJ,Stents,Obesity Ordering Physician: Nan^Luigi Performed By: Lashon Baca [facility] Interpretation Summary There is mild mitral regurgitation. [...] Doppler Measurements & Calculations MV E max rahda: 123.0 cm/sec MV dec time: 0.22 sec [...] mmHg FINAL REPORT Dictated: 07/08/2024 1:29 pm Luigi Montana MD Signed (Electronic Signature): 07/08/2024 3:45 pm Signed by: Luigi Montana MD Transcribed by: TORSTEN Technologist: [facility]01-30-2025 Note Interdisciplinary Note - PT PT Evaluation completed with an AMPA score of 19/24. Pt currently requires CGA/Min A for bed mobility and transfers with CGA. Pt was able to ambulate with FWW with no LOB. Will follow daily. Pt would benefit from returning to [facility] for continued PT services to return pt to [facility]01-30-2025 NoteGetWell Learning Participants Bairon Understands Education Mapbar Education Video Carotid Artery Stenting: [facility] NoteInterdisciplinary Note - OT Pt is seen this date for OT evaluation. AMPA score: 16/24. Pt presents with overall decreased functional activity tolerance, UE strength, dynamic balance, and reports of low back/sciatic pain, limiting independence and safety with ADL tasks and functional transfers. pt will benefit from further OTtreatment during hospital stay to address these areas and maximize independence and safety with ADLtasks and transfers. OT [facility] NoteProgress Note-Physician Subjective Patient is resting comfortably in [...] 05:50:00) Lymph Auto: 14.8 % (07/08/24 05:50:00) Coles Auto: 15 % High (07/08/24 05:50:00) Eos Auto: 3.4 % (07/08/24 05:50:00) Basophil Auto: 1.3 % (07/08/24 05:50:00) Neutro Absolute: 5.5 E9/L (07/08/24 05:50:00) Lymph Absolute: 1.2 E9/L (07/08/24 05:50:00) Coles Absolute: 1.3 E9/L High (07/08/24 05:50:00) Eos [...] Magnesium: 2.2 mg/dL (07/08/24 05:50:00) Troponin HS: 80716.9 pg/mL Critical (07/08/24 05:50:00) BNP: 1610 pg/mL High (07/07/24 15:27:00) Glucose Cap: 172 mg/dL High (07/08/24 11:36:00) POC Device SN: [id number] (07/08/24 11:36:00) POC User ID: [id number] (07/08/24 11:36:00) POC Username: ANGELA LYNN (07/08/24 11:36:00) Assessment/Plan Atrial fibrillation with controlled ventricular rate Okay to restart home dose of Eliquis 5 mg twice daily from this evening 1. STEMI (ST elevation myocardial infarction) (I21.3: ST elevation (STEMI) myocardial infarction ofunspecified site) Aspirin 81 mg a day for [...] artery disease) (I25.10: Atherosclerotic heart disease of muscogee coronary artery without angina pectoris) 4. History [...] EST, Routine, Start date 07/07/24 16:55:00 EST acetam (more content not included)...[facility] HospitalComment on above:Result Comment: Electronically Signed By: Nan BREWER, Luigi\.br\Date and Time Signed: 07/08/24 12:22 [id number] NoteProgress Note-Physician Assessment/Plan 1. STEMI (ST elevation myocardial infarction) (I21.3: ST elevation (STEMI) myocardial infarction ofunspecified site) [facility] 07/07/24 stent mid LAD asa statin brilinta hold AC, restart this evening 12.5 mg metoprolol if pressure can handle Telemetry Cardiology consulted and following Ordered: [facility] Hospital Care/Day High 50 Minutes 15540 2. Heart failure with reduced ejection fraction (I50.20: Unspecified systolic (congestive) heart failure) EF as low as 20 to 30% Hold Entresto Hold hydralazine Hold Jardiance Hold spironolactone 3. CAD (coronary artery disease) (I25.10: Atherosclerotic heart disease of muscogee coronary artery without angina pectoris) Aspirin Statin 4. History of DVT in adulthood (Z86.718: Personal history of other venous thrombosis and embolism) Holding Eliquis at this time due to [facility] Will likely restart Eliquis this evening [...] -- Total -- 851.24 -- Output (1) Ur (more content not included)...[facility] HospitalComment on above: Result Comment: Electronically Signed By: Selvin Yeh DO\.br\Date and Time Signed: 07/08/24 08:52 [id number] NoteHistory and Physical Basic Information Admit Date/Time:07/07/2024 15:49 [...] blood pressure of first 57/33. ER patient's bl ood pressure was 81/49. EKG consistent with STEMI. Code STEMI was called. Cardiology saw patient inED and patient refused to have heart cath done at [facility] at first despite cardiology as well as ED physician strongly encouraging her to do so. Then arrangements were made for patient be transferred to [place] however once patient hurts she would be flying in a helicopter she said she did not realize it was that serious and agreed to have it done here. Patient was taken to [facility] stent placed mid LAD. Patient was then [...] 15:27:00) Lymph Auto: 16.5 % (07/07/24 15:27:00) Coles Auto: 15 % High (07/07/24 15:27:00) Eos Auto: 4.7 % (07/07/24::00) Basophil Auto: 1.2 % (07/07/24::00) Neutro Absolute: 5.5 E9/L (07/07/24 15:27:00) Lymph Absolute: 1.4 E9/L (07/07/24 15::00) Coles Absolute: 1.3 E9/L High (07/07/24 15::00) Eos Absolute: 0.4 E9/L (07/07/24 15::00) Basophil Absolute: 0.1 E9/L (07/07/24::00) PT: 16.6 second(s) High (07/07/24::00) INR: 1.48 (07/07/24::) PTT: 34.9 second(s) (07/07/24::00) Glucose Lvl: 197 mg/dL (07/07/24::00) BUN: 28 mg/dL High (07/07/24::00) Creatinine: 1 mg/dL (07/07/24::00) eGFR: 60 mL/min/1.73 m2 (07/07/24::00) BUN/Creat Ratio: 28 High (07/07/24:27:) Sodium Lvl: 134 mmol/L Low (07/07/24:27:00) Potassium Lvl: 4.2 mmol/L (07/07/24::00) Chloride: 99 mmol/L Low (07/07/24::00) CO2: 25 mmol/L (07/07/24:27:00) AGAP: 14 mEq/L (07/07/24::00) Calcium Lvl: 10.1 mg/dL (07/07/24::00) Magnesium: 2.1 mg/dL (07/07/24 15:27:00) Troponin HS: 2724.8 pg/mL Critical (07/07/24 15:27:00) BNP: 1610 pg/mL High (01/29/25 15:27:00) Glucose Cap: 148 mg/dL High (07/07/24 17:21:00) POC Device SN: [id number] (07/07/24 17:21:00) POC User ID: [id number] (07/07/24 17:21:00) POC Username: POC Username (07/07/24 17:21:00) Assessment/Plan Patient will be admitted under inpatient status due to estimated length of stay greater than 2 midnights. All images, labs, EKGs were reviewed DVT PPx???PAS bilaterally Diet???cardiac CODE STATUS (more content not included)...[facility] HospitalComment on above:Result Comment: Electronically Signed By: Selvin Yeh DO\magdaleno\Date and Time Signed: 07/07/24 19:29 [id number] Hospital Discharge instructions Patient Education 07/07/2024 17:04:47 CV - Cardiovascular PCI Discharge Instructions (Custom) [place], [place] Cardiovascular PCI DISCHARGE INSTRUCTIONS Diet: Resume pre-procedure diet. Increase water intake the next 2 days to flush dye out of the body. Activity: If groin access: Limit activity today. Do not operate a vehicle, machinery or power tools. NO LIFTING OVER 10 POUNDS (a gallon of milk weighs 8 pounds) for 3 days. Limit climbing stairs, bending, squatting and stooping for 3 days. May resume driving in 24 hours. Let pain/discomfort guide your activity. If you are having pain, stop. No sexual activity for 1 week. Return to the Emergency Room if you have trouble breathing, walking or nausea and vomiting. Medications: Resume pre-procedure medication, unless otherwise directed. Hold the following medications for 48 hours post procedure: Actoplus MetGlucophageGlucophage XR GlucovanceAvandametFortamet Ddk-scpllwyfySjhjmtMupn-lzlopqeot GlumetzaJanumetMetaglip RiometGlycomet Minimal pain, soreness and/or discomfort is expected. If you are prescribed an aspirin and/or antiplatelet (such as Plavix, Brilinta or Effient) do NOT stop taking these medications for any reason without talking to your wet process miller head Site Care: Do not remove dressing for 24 hours unless it becomes saturated, then replace. Keep site clean and dry; inspect site daily. Do not use any lotions, powders, or ointments at the groin or wrist site for 1 week. May shower 24 hours after the procedure. Clean site with soap and water. Pat dry and apply band aid. No tub baths, swimming or hot tubs for 3 days. Post Procedure: Soreness and tenderness to the site can last up to one week. Bruising may occur to site. A responsible adult should be with you for the first 24 hours after you arrive home. Keep follow-up appointment. Carry your stent card with you at all times. This provides information about your heart disease forany doctor who cares for you. No smoking for 24 hours as it increases the risk of developing blood clots. If you are interested in smoking cessation, contact [facility] at [phone], ext. [phone]. In the event you are unable to reach your physician, please call [facility] at [phone] and the powder mill operator will assist you. Seek Medicare Care for: Bleeding: Apply continuous pressure to the site and Call 911. Should the arm or leg become cold, numb, blue or white call your physician immediately. Signs of infection are redness, warmth, swelling, getting more sore, colored drainage, fever or chills Chest pain Blood in your urine or stool Black tarry stools Follow Up Care 07/07/2024 14:52:48 With:MELBA BREWER, AB[facility] Address: [address] [place] [address]- When: Unknown With:MARY BREWER BATH Address: When:1 to 2 weeks Comments:Call for followup appointment. pt needs close follow up [facility] 01-29-2025 NoteConsultation Note Chief Complaint chest pain that began [...] catheterization and wanted to be transferred to [facility] in [place]. Later on patient requested to proceed with the procedure at [facility]. I explained and reviewed the risks [...] infarction) (I21.3: ST elevation (STEMI) myocardial infarction ofunspecified site) Status post PCI to LAD (Culprit [...] qualifying data Historical Atherosclerotic heart disease of muscogee coronary artery without angina pectoris Chronic kidney [...] 650 mg= 2 tab(s), Oral, q6hr, PRN aceta (more content not included)...[facility] HospitalComment on above: Result Comment: Electronically Signed By: Luigi Montana MD\.br\Date and Time Signed: 07/07/24 17:24 [id number] NoteProgress Note-Physician Left main-angiographically normal LAD-patent stent in [...] left collaterals. Distal left circumflex is occluded. Amedium caliber left posterolateral branch also fills via left to left and right to left collaterals. RCA-large caliber dominant vessel. Patent stent in mid segment. Mild to moderate ISR in distal RCA.Medium caliber bifurcating PDA which has mild diffuse disease. AV continuation gives rise to RPL1 -medium caliber vessel without any significant disease. RPL2 [...] succinate 12.5 mg dose tonight (hold if systolicblood pressure less than 90 mmHg) EchocardiogramHolmes County [facility] HospitalComment on above:Result Comment: Electronically Signed By: Luigi Montana MD\.br\Date and Time Signed: 07/07/24 17:18 [id number] NotePatient Education - Text [facility] [place], [place] Cardiovascular PCI DISCHARGE INSTRUCTIONS Diet: ??? [...] for any reason without talking to your wet process miller head Site Care: ??? Do not remove dressing for 24 hours unless it becomes saturated, then replace. ??? Keep site clean and dry; inspect site daily. ??? Do not use any lotions, powders, or ointments at the groin or wrist site for 1 week. ??? May shower 24 hours after the procedure. Clean site with soap and water. Pat dry and apply bandaid. No tub baths, swimming or hot tubs [...] times. This provides information about your heart diseasefor any doctor who cares for you. ??? No smoking for 24 hours as it increases the risk of developing blood clots. ??? If you are interested in smoking cessation, contact [facility] at [phone], ext. [phone]. ??? In the event you are unable to reach your physician, please call Yariel Sinclair at [phone] and the powder mill operator will assist you. Seek Medicare Care for: ??? Bleeding: Apply continuous pressure to the site and Call 911. ??? Should the arm or leg become cold, numb, blue or white call your physician immediately. ??? Signs of infection are redness, warmth, swelling, getting more sore, colored drainage, fever orchills ??? Chest pain ??? Blood in your urine or stool ??? Black tarry stools ???[facility]01-29-2025 NoteProgress Note-Physician I was called by the ER [...] all her procedures have been done at [facility]. When I explained to the patient that she is likely having a heart attack and will need emergent heart cath patient told she wants to go to [facility] for further management. I and the ER physician both explained to the patient that she is at high risk of adverse outcomes including by delaying the procedure. Patient says she understands the risks but would not have a procedure done here and would only go to [facility] for a heart catheterization. She did tell me that her pain has subsided and currently she is pain-free. Reviewed her home medication list-patient takes Brilinta 90 mg twice a day and Eliquis 5 mg twice daily. Advised ER team to emergently contact [facility] for emergent transfer as per patient wishes. Recommend starting patient on heparin infusion. Give 90 mg dose of Brilinta. Monitor on telemetry. If patient changes her opinion and wishes to proceed with a heart cath at [facility] we will reevaluate and proceed with the heart catheterization.[facility] HospitalComment on above:Result Comment: Electronically Signed By: Nan BREWER, Luigi\.padmini\Date and Time Signed: 07/07/24 15:35 [id number] Miscellaneous Notes* Telephone Encounter - HOLLEY White - 05/12/2024 5:12 PM EST Cipro sent in for patient. Called and let her know that the antibiotic was called in and that she will need to hold the Tizanidine for 3 days while taking the Cipro. * Telephone Encounter - Ankita Hauser MA - 05/12/2024 4:42 PM EST Pt came urine sample due to having burning and cloudy urine, results are in chart and also sent outculture documented in this encounterNOMS [id number] Telephone encounter Note* Telephone Encounter - HOLLEY White - 05/12/2024 5:12 PM EST Cipro sent in for patient. Called and let her know that the antibiotic was called in and that she will need to hold the Tizanidine for 3 days while taking the Cipro. NOMS [id number] Telephone encounter Note* Telephone Encounter - Ankita Hauser MA - 05/12/2024 4:42 PM EST Pt came urine sample due to having burning and cloudy urine, results are in chart and also sent outculture NOMS [id number] History of Present illness Narrative* Ankita Hauser MA - 05/12/2024 3:00 PM EST Pt gave urine sample as she stated UTI having burning and cloudy urine documented in this encounterNOMS [id number] NotePharmD Consult - Heart Failure GDMT/CAD/Lipids Management Referring Provider: Dr. Bhargav Rosado Clinic Location: [place] [facility] Most recent visit: 04/27/24 with Niraj [...] Visit Follow up with Cardiology: 06/25/24 with Slim PritchardD Cardiology Outpatient Clinical Pharmacist 05/03/24[facility]11-20-2024 NotePharmD Consult - Heart Failure GDMT/CAD/Lipids Management Referring Provider: Dr. Bhargav Rosado Clinic Location: [place] [facility] Most recent visit: 04/27/24 with Niraj [...] Follow up with Cardiology: 06/25/[address] Mary Kay, Sin Cardiology Outpatient Clinical Pharmacist 04/27/24[facility]11-19-2024 NoteCardiovascular Medicine [facility] SUBJECTIVE Chief Complaint Patient presents with Congestive [...] Reduced EF Admission Diagnosis: Angina pectoris ([facility]) [I20.9] Hospital course: Alissa Lawson is a 73F who presented as a transfer from [facility] where she was admitted with ongoing [...] the time. Due to high risk for [place], she was transferred to [facility] for a heart cath with Impella assist. [...] associated with type 2 diabetes mellitus ([facility]/HCC) Diaphragmatic hernia Difficulty walking Dyspnea on exertion Generalized osteoarthritis Gout History of arthritis History of hysterectomy Hyperglycemia due to type 2 diabetes mellitus ([facility]/HCC) intermediate current use of insulin ([facility]) Low back pain Morbid obesity ([facility]) Neoplasm of uncertain behavior of kidney Obstructive sleep apnea syndrome Osteoarthritis of knee Osteoporosis Peripheral venous insufficiency Polyneuropathy due to type 2 diabetes mellitus ([facility]) Preoperative evaluation to rule out surgical contraindication Pulmonary function studies abnormal Pure hypercholesterolemia Renal mass Skin sensation disturbance Type 2 diabetes mellitus without complication ([facility]) Umbilical hernia Uric acid nephrolithiasis NSTEMI (non-ST elevated myocardial infarction) ([facility]) Acute exacerbation of CHF (congestive heart failure) ([facility]) COVID-19 Acquired spondylolisthesis Acute on chronic diastolic heart failure ([facility]) Coronary artery disease (CAD) exclu (more content not included)...[facility]11-19-2024 NotePatient here for follow up [facility] for acute NSTEMI and HFrEF. She was discharged with a LifeVest and has decided not to wear it. She has a phone call apt scheduled with Campbell, cardiology pharmacist at [facility], to discuss Ozempic per Dr. Rosado. She did not bring updated med list from discharge. Denies chest pain, SOB, and bleeding on Eliquis. Review of Systems Constitutional: Positive for malaise/fatigue. Cardiovascular: Positive for leg swelling (improving). Respiratory: Positive for cough. All other systems reviewed and are negative.[facility] 04-22-2024 NotePhysical Therapy Physical Therapy Treatment Patient Name: Laura Lawson : 1950 Today's Date: 04/22/2024 Patient Active Problem List Diagnosis Allergic rhinitis Angiomyolipoma of kidney Benign essential hypertension Cerebrovascular disease Chronic foot ulcer ([facility]/HCC) Coronary atherosclerosis Decreased estrogen level Diabetic retinopathy associated with type 2 diabetes mellitus ([facility]/HCC) Diaphragmatic hernia Difficulty walking Dyspnea on exertion Generalized osteoarthritis Gout History of arthritis History of hysterectomy Hyperglycemia due to type 2 diabetes mellitus ([facility]/HCC) intermediate current use of insulin ([facility]) Low back pain Morbid obesity ([facility]) Neoplasm of uncertain behavior of kidney Obstructive sleep apnea syndrome Osteoarthritis of knee Osteoporosis Peripheral venous insufficiency Polyneuropathy due to type 2 diabetes mellitus ([facility]) Preoperative evaluation to rule out surgical contraindication Pulmonary function studies abnormal Pure hypercholesterolemia Renal mass Skin sensation disturbance Type 2 diabetes mellitus without complication ([facility]) Umbilical hernia Uric acid nephrolithiasis NSTEMI (non-ST elevated myocardial infarction) ([facility]) Acute exacerbation of CHF (congestive heart failure) ([facility]) COVID-19 Acquired spondylolisthesis Acute on chronic diastolic heart failure ([facility]) Coronary artery disease (CAD) excluded Diastolic dysfunction GERD (gastroesophageal reflux disease) History of carpal tunnel surgery of right wrist Hyperlipidemia Impaired mobility and endurance Localized edema Lumbar radiculopathy Morbid obesity with body mass index (BMI) of 45.0 to 49.9 in adult ([facility]) Paresthesia of skin Primary osteoarthritis of both knees S/P drug eluting coronary stent placement Ulcer of foot due to type 2 diabetes mellitus ([facility]) Pericardial effusion CAD in muscogee artery Coronary artery disease Coronary artery disease involving muscogee coronary artery of muscogee heart with other form of angina pectoris ([facility]) Chronic systolic heart failure ([facility]) Combined forms of age-related cataract of both eyes History of lumbar fusion Nonexudative age-related macular degeneration Thyroid disease Angina pectoris ([facility]) Time: 16:00-16:16 04/22/24 1620 PT Last Visit PT Received On 04/22/24 General Subjective Restaurant Area Manager returning to do step negotiation with pt see details of treatment session below : Activity Tolerance Endurance Stage III Precautions Medical Precautions portable telemetry , female purewick Pain Assessment Pain Location Hip (Right low [...] light in place and [employer] life vest cash applications representative here to fit pt for life [...] Patient to participate in BLE exercise to im (more content not included)... [facility]11-14-2024 NotePhysical Therapy Physical Therapy Treatment Patient Name: Laura [...] due to type 2 diabetes mellitus (CMS/HCC) intermediate current use of insulin (CMS/HCC) Low back pain Morbid obesity (CMS/HCC) Neoplasm of uncertain behavior of kidney Obstructive sleep apnea syndrome Osteoarthritis of knee Osteoporosis Peripheral venous insufficiency Polyneuropathy due to type 2 diabetes mellitus ([facility]) Preoperative evaluation to rule out surgical contraindication Pulmonary function studies abnormal Pure hypercholesterolemia Renal mass Skin sensation disturbance Type 2 diabetes mellitus without complication ([facility]) Umbilical hernia Uric acid nephrolithiasis NSTEMI (non-ST elevated myocardial infarction) ([facility]) Acute exacerbation of CHF (congestive heart failure) ([facility]) COVID-19 Acquired spondylolisthesis Acute on chronic diastolic heart failure ([facility]) Coronary artery disease (CAD) excluded Diastolic dysfunction GERD (gastroesophageal reflux disease) History of carpal tunnel surgery of right wrist Hyperlipidemia Impaired mobility and endurance Localized edema Lumbar radiculopathy Morbid obesity with body mass index (BMI) of 45.0 to 49.9 in adult ([facility]) Paresthesia of skin Primary osteoarthritis of both knees S/P drug eluting coronary stent placement Ulcer of foot due to type 2 diabetes mellitus ([facility]) Pericardial effusion CAD in mus[place]ogee artery Coronary artery disease Coronary artery disease involving mus[place]ee coronary artery of mus[place]ee heart with other form of angina pectoris ([facility]) Chronic systolic heart failure ([facility]) Combined forms of age-related cataract of both eyes History of lumbar fusion Nonexudative age-related macular degeneration Thyroid disease Angina pectoris ([facility]) 04/22/24 1145 PT Last Visit [...] 04/20/24 05/04/24 -- Goal Start Date Expected (more content not included)...[facility]-14-2024 NoteHospital Medicine Discharge Summary Final Discharge Diagnosis: Acute NSTEMI Acute on Chronic HF w/ Reduced EF Admission Diagnosis: Angina pectoris ([facility]) [I20.9] Hospital course: Alissa Lawson is a 73F who presented as a transfer from [facility] where she was admitted with ongoing [...] the time. Due to high risk for [place], she was transferred to [facility] for a heart cath with Impella assist. [...] MARÍA Consultations During Admission: Cardiology Dear Dr. Melba MD, [place] is advised to follow up with you within 1-2 weeks. Items to follow up in ambulatory setting: Medication adjustments. Renal mass found on CT Abdomen and pelvis, previous findings on 2013. Unsure if worked up. Follow-up with: Cardiology and CHF clinic Scheduled appointments: Future Appointments Date Time Provider Department Center 04/27/2024 2:20 PM [facility]AN[facility] Your medication list START taking these [...] Next Dose Due allopurinol 300 mg tablet Commonl (more content not included)...[facility] 04-22-2024 NoteCardiology Progress Note Subjective F/U: chest pain, NSTEMI s/p balloon angioplasty HPI: Laura Lawson is a 73 y.o. female with past history remarkable for primary hypertension, type 2 diabetes mellitus, mixed hyperlipidemia, coronary artery disease status post PCI to LAD, RCA on 10/2023, chronic heart failure with improved ejection fraction 45% previously 30%, who presented to [facility] after transfer from [facility] where she initially presented with left-sided chest pain, found to have elevated high-sensitivity troponin and was transferred to [facility]. During my evaluation today, patient was complaining [...] 04/22/24 0000 111/73 36.8 ???C (98.2 ???F) Temporal 72 12 96 % -- 04/21/24 2000 106/59 36.8 ???C (98.2 ???F) Temporal 83 22 98 % -- 04/21/24 175 -- -- -- 83 21 99 % -- Current Facility-Administered Medications: allopurinol (Zyloprim) tablet 300 mg, 300 mg, oral, Daily, Malina Jha MD, 300 mg at 04/22/24942 apixaban (Eliquis) tablet 5 mg, 5 mg, oral, BID, Malina Jha MD, 5 mg at 04/22/24942 baclofen (Lioresal) tablet 10 mg, 10 mg, oral, Nightly, Анна Wright MD, 10 mg at 04/21/242114 colchicine tablet 0.6 mg, 0.6 mg, oral, Daily, Bhargav Rosado MD, 0.6 mg at 04/22/24942 dapagliflozin propanediol (Farxiga) tablet 10 mg, 10 mg, oral, Daily, Анна Wright MD, 10 mg at 04/22/24942 dyclonine throat lozenge 2 mg, 2 mg, Mouth/Throat, q2h PRN, Malina Jha MD, 2 mg at 04/22/24 1001 ezetimibe (Zetia) tablet 10 mg, 10 mg, oral, Daily, Анна Wright MD, 10 mg at 04/22/24 0943 furosemide (Lasix) tablet 40 mg, 40 mg, oral, q12h, Malina Jha MD, 40 mg at 04/22/24 0943 [...] 1 patch, 1 patch, topical (top), q24h, Malina Jha MD, 1 patch at 04/21/24 1643 metoprolol succinate XL (Toprol-XL) 24 hr tablet 25 mg, 25 mg, oral, Daily, Niraj San NP, 25 mg at 04/22/24 1223 metoprolol succinate XL (Toprol-XL) 24 hr tablet 50 mg, 50 mg, oral, Daily, Bhargav Rosado MD, 50 mg at 04/22/24 0943 [...] tablet 20 mg, 20 mg, oral, Daily, Bhargav Rosado MD, 20 mg at 04/22/24 0942 [...] sounds are normal. Palpations: Abdomen is soft. Musculoskeleta (more content not included)...[facility] 04-21-2024 NotePhysical Therapy Physical Therapy Treatment Patient Name: Laura [...] due to type 2 diabetes mellitus (CMS/HCC) intermediate current use of insulin ([facility]) Low back pain Morbid obesity ([facility]) Neoplasm of uncertain behavior of kidney Obstructive sleep apnea syndrome Osteoarthritis of knee Osteoporosis Peripheral venous insufficiency Polyneuropathy due to type 2 diabetes mellitus ([facility]) Preoperative evaluation to rule out surgical contraindication Pulmonary function studies abnormal Pure hypercholesterolemia Renal mass Skin sensation disturbance Type 2 diabetes mellitus without complication ([facility]) Umbilical hernia Uric acid nephrolithiasis NSTEMI (non-ST elevated myocardial infarction) ([facility]) Acute exacerbation of CHF (congestive heart failure) ([facility]) COVID-19 Acquired spondylolisthesis Acute on chronic diastolic heart failure ([facility]) Coronary artery disease (CAD) excluded Diastolic dysfunction GERD (gastroesophageal reflux disease) History of carpal tunnel surgery of right wrist Hyperlipidemia Impaired mobility and endurance Localized edema Lumbar radiculopathy Morbid obesity with body mass index (BMI) of 45.0 to 49.9 in adult ([facility]) Paresthesia of skin Primary osteoarthritis of both knees S/P drug eluting coronary stent placement Ulcer of foot due to type 2 diabetes mellitus ([facility]) Pericardial effusion CAD in [place] artery Coronary artery disease Coronary artery disease involving [place] coronary artery of mus[place]ee heart with other form of angina pectoris ([facility]) Chronic systolic heart failure ([facility]) Combined forms of age-related cataract of both eyes History of lumbar fusion Nonexudative age-related macular degeneration Thyroid disease Angina pectoris ([facility]) Time : 16:02-16:40 04/21/24 1645 PT Last Visit PT Received On 04/21/24 General Subjective Pt had been cleared medically to receive therapy services per nursing , upon sheet writer entering the room pt was sitting in bedside chair , pt told sheet writer she had had a heart attack [...] to 1 Stand Technique 1 Sit to stand;Alberto (more content not included)...[facility]-13-2024 NoteOccupational Therapy Occupational Therapy Treatment Patient Name: Laura [...] to type 2 diabetes mellitus (CMS/HCC) 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 (CMS/HCC) Low back pain Morbid obesity (CMS/HCC) Neoplasm of uncertain behavior of kidney Obstructive sleep apnea syndrome Osteoarthritis of knee Osteoporosis Peripheral venous insufficiency Polyneuropathy due to type 2 diabetes mellitus (CMS/HCC) Preoperative evaluation to rule out surgical contraindication Pulmonary function studies abnormal Pure hypercholesterolemia Renal mass Skin sensation disturbance Type 2 diabetes mellitus without complication ([facility]) Umbilical hernia Uric acid nephrolithiasis NSTEMI (non-ST elevated myocardial infarction) ([facility]) Acute exacerbation of CHF (congestive heart failure) ([facility]) COVID-19 Acquired spondylolisthesis Acute on chronic diastolic heart failure ([facility]) Coronary artery disease (CAD) excluded Diastolic dysfunction GERD (gastroesophageal reflux disease) History of carpal tunnel surgery of right wrist Hyperlipidemia Impaired mobility and endurance Localized edema Lumbar radiculopathy Morbid obesity with body mass index (BMI) of 45.0 to 49.9 in adult ([facility]) Paresthesia of skin Primary osteoarthritis of both knees S/P drug eluting coronary stent placement Ulcer of foot due to type 2 diabetes mellitus ([facility]) Pericardial effusion CAD in [place] artery Coronary artery disease Coronary artery disease involving [place] coronary artery of [place] heart with other form of angina pectoris ([facility]) Chronic systolic heart failure ([facility]) Combined forms of age-related cataract of both eyes History of lumbar fusion Nonexudative age-related macular degeneration Thyroid disease Angina pectoris ([facility]) Pain: Pain Assessment Pain Score: [...] Limits General Assessment General Assessment Hearing: (mild [place]) Hand Dominance: Right Static Sitting Balance Static [...] Eating meals?: None (Independent) Total Score OT [facility]: 21 Assessment/Plan OT Assessment OT Impairments: Decreased ADL status, Decreased endurance, Decreased functional mobility OT Assessment/BLOCK CABLEMAN Summary: (progressing in adl endurance without O2 [...] week until discharge & PRN OT Discharge Emile (more content not included)...[facility]-13-2024 NoteCase was discussed with the Medical Student on [...] the next day. Discharge planning with diuretic. Malina Jha MD Hospital Medicine Daily Progress Note - 04/21/2024 9:08 AM; Room: [facility]/3107-01 Admission: 04/19/2024 4:39 AM; Length of stay: 2 days THE HOSPITALIST TEAM PREFERS TO USE [employer] CHAT FOR NON-URGENT COMMUNICATION 7AM-7PM. IF I DO NOT RESPOND WITHIN 20 MINUTES OR URGENT MATTERS, PLEASE CALL THROUGH THE TYPESETTER PERFORATOR OPERATOR. FROM 7PM-7AM, PLEASE PAGE [phone](COVR). Code Status: Full Code Barriers to Discharge: [...] Inpatient Problems Principal Problem: Angina pectoris ([facility]) Assessment and Plan Acute NSTEMI [...] Academy of Nutrition and Dietetics and the [place] Society of Enteral and Parenteral Nutrition, meets the diagnosis for malnutrition. A care plan has been established for this patient. VTE Prophylaxis: None Scheduled Meds [Held by provider] allopurinol, 300 mg, oral, Daily aspirin, 81 mg, oral, Daily baclofen, 10 mg, (more content not included)...[facility]-13-2024 Notedischarge planning: to return home with family Patient came to [facility] 04/19/2024; H&P stating transferred from [facility] where she was admitted with ongoing pain left upper chest radiating to arm and neck associated with nausea vomiting - Occupational Therapy Evaluation recommending discharge to Home - Physical Therapy Evaluation recommending discharge to Home - LDAs noting wounds: pressure injury sacrum, diabetic ulcer toe - MAR noting Lantus (diabetes medication), Brilinta - follow up with [facility] on AVS barriers: - pending clinical course 04/21/24 0901 Referral Data 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 No Patient's goal for discharge return home Does the patient need discharge transport arranged? No (family)[facility]24 NoteCardiology Progress Note Subjective F/U: chest pain, NSTEMI s/p balloon angioplasty HPI: Laura Lawson is a 73 y.o. female with past history remarkable for primary hypertension, type 2 diabetes mellitus, mixed hyperlipidemia, coronary artery disease status post PCI to LAD, RCA on 10/2023, chronic heart failure with improved ejection fraction 45% previously 30%, who presented to [facility] after transfer from [facility] where she initially presented with left-sided chest pain, found to have elevated high-sensitivity troponin and was transferred to [facility]. During my evaluation today, patient was complaining [...] ???F) -- 80 12 96 % -- 04/20/245 122/72 -- -- 82 18 98 % -- 04/20/242054 98/69 36.7 ???C (98.1 ???F) -- 91 22 93 % -- Current Facility-Administered Medications: allopurinol (Zyloprim) tablet 300 mg, 300 mg, oral, Daily, Malina Jha MD, 300 mg at 04/21/24 1307 apixaban (Eliquis) tablet 5 mg, 5 mg, oral, BID, Malina Jha MD, 5 mg at 04/21/24 110 aspirin chewable tablet 81 mg, 81 mg, oral, Daily, Анна Wright MD, 81 mg at 04/21/24941 baclofen (Lioresal) tablet 10 mg, 10 mg, oral, Nightly, Анна Wright MD, 10 mg at 04/20/242052 colchicine tablet 0.6 mg, 0.6 mg, oral, Daily, Bhargav Rosado MD, 0.6 mg at 04/21/24941 dapagliflozin propanediol (Farxiga) tablet 10 mg, 10 mg, oral, Daily, Анна Wright MD, 10 mg at 04/21/24941 ezetimibe (Zetia) tablet 10 mg, 10 mg, oral, Daily, Анна Wright MD, 10 mg at 04/21/24941 furosemide (Lasix) injection 40 mg, 40 mg, intravenous, q12h, Malina Jha MD, 40 mg at 04/21/24 0844 hydrALAZINE (Apresoline) tablet 25 mg, 25 mg, oral, BID, Анна Wright MD, 25 mg at 04/21/24 09 insulin glargine (Lantus) injection vial 80 Units, 80 Units, subcutaneous, q AM, Анна Wright MD, 80 Units at 04/21/24 09 insulin lispro (HumaLOG) injection 0-10 Units, 0-10 Units, subcutaneous, q6h FRANNY, Анна Wright MD, 2 Units at 04/21/24 1306 lidocaine (Lidoderm) 5 % patch 1 patch, 1 patch, topical (top), q24h, Malina Jha MD, 1 patch at 04/20/24 1714 metoprolol succinate XL (Toprol-XL) 24 hr tablet 50 mg, 50 mg, oral, Daily, Bhargav Rosado MD, 50 mg at 04/21/24 0941 [...] Анна Wright MD, 25 mg at 04/21/24 0941 rosuvastatin (Crestor) tablet 20 mg, 20 mg, oral, Daily, Bhargav Rosado MD, 20 mg at 04/21/24 0941 [...] lower leg: Edema present. Comments: +2 BLE ed (more content not included)...[facility]12-2024 NotePatient admitted to the hospital for: Angina pectoris. Chart echo from 04/19/2024 reports: EF 20 %. Current echo report qualifies for Cardiac Rehab services per CMS eligibility criteria. A Cardiac Rehab referral diagnosis and code must also meet CMS criteria. Dayami Mar RN, BSN Cardiology Outpatient Coordinator Cardiopulmonary RehabUnSt. 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 In depth heart [...] ideal body weight (50 kg) Calorie needs: 0578-8132 kcals/day based on Equation: 25-30 kcal/kg Protein [...] Academy of Nutrition and Dietetics, and the [place] Society of Enteral and Parenteral Nutrition to [...] able to tell me what it is bu (more content not included)...[facility]-12-2024 NoteCase was discussed with the Medical Student on [...] which she will need follow up outpatient. Malina Jha MD Hospital Medicine Daily Progress Note - 04/20/2024 12:40 PM; Room: [address] [place] [address] Admission: 04/19/2024 4:39 AM; Length of stay: 1 days THE HOSPITALIST TEAM PREFERS TO USE [employer] CHAT FOR NON-URGENT COMMUNICATION 7AM-7PM. IF I DO NOT RESPOND WITHIN 20 MINUTES OR URGENT MATTERS, PLEASE CALL THROUGH THE TYPESETTER PERFORATOR OPERATOR. FROM 7PM-7AM, PLEASE PAGE [phone](COVR). Code Status: Full Code Barriers to Discharge: [...] Inpatient Problems Principal Problem: Angina pectoris ([facility]) Assessment and Plan Acute NSTEMI [...] insulin glargine, 80 Units, subcutaneous, q AM (more content not included)...[facility]12-2024 Note Physical Therapy Physical Therapy Evaluation Patient [...] due to type 2 diabetes mellitus (CMS/HCC) intermediate current use of insulin (CMS/HCC) Low back pain Morbid obesity (CMS/HCC) Neoplasm of uncertain behavior of kidney Obstructive sleep apnea syndrome Osteoarthritis of knee Osteoporosis Peripheral venous insufficiency Polyneuropathy due to type 2 diabetes mellitus (CMS/HCC) Preoperative evaluation to rule out surgical contraindication Pulmonary function studies abnormal Pure hypercholesterolemia Renal mass Skin sensation disturbance Type 2 diabetes mellitus without complication ([facility]) Umbilical hernia Uric acid nephrolithiasis NSTEMI (non-ST elevated myocardial infarction) ([facility]) Acute exacerbation of CHF (congestive heart failure) ([facility]) COVID-19 Acquired spondylolisthesis Acute on chronic diastolic heart failure ([facility]) Coronary artery disease (CAD) excluded Diastolic dysfunction GERD (gastroesophageal reflux disease) History of carpal tunnel surgery of right wrist Hyperlipidemia Impaired mobility and endurance Localized edema Lumbar radiculopathy Morbid obesity with body mass index (BMI) of 45.0 to 49.9 in adult ([facility]) Paresthesia of skin Primary osteoarthritis of both knees S/P drug eluting coronary stent placement Ulcer of foot due to type 2 diabetes mellitus ([facility]) Pericardial effusion CAD in [place] artery Coronary artery disease Coronary artery disease involving [place] coronary artery of [place] heart with other form of angina pectoris ([facility]) Chronic systolic heart failure ([facility]) Combined forms of age-related cataract of both eyes History of lumbar fusion Nonexudative age-related macular degeneration Thyroid disease Angina pectoris ([facility]) Past Medical History: Diagnosis Date Abnormal ECG CHF (congestive heart failure) ([facility]) Coronary artery disease Diabetes mellitus ([facility]) Gout Hypertension Myocardial infarction ([facility]) Sleep apnea Past Surgical History: [...] Level of Function Prior Function Level of [place]: Independent with ADLs and functional transfers, Independent [...] Within Functional Limits Static Sitting Balance Static Sitti (more content not included)...[facility] 04-20-2024 NoteCardiology Progress Note Subjective F/U: chest pain, HPI: Laura Lawson is a 73 y.o. female with past history remarkable for primary hypertension, type 2 diabetes mellitus, mixed hyperlipidemia, coronary artery disease status post PCI to LAD, RCA on 10/2023, chronic heart failure with improved ejection fraction 45% previously 30%, who presented to [facility] after transfer from [facility] where she initially presented with left-sided chest pain, found to have elevated high-sensitivity troponin and was transferred to [facility]. During my evaluation today, patient was complaining [...] ???F) Temporal 63 18 99 % -- 04/19/24 2324 -- -- -- -- -- 99 % [...] tablet 0.6 mg, 0.6 mg, oral, Daily, Bhargav Rosado MD, 0.6 mg at 04/20/24 1110 dapagliflozin propanediol (Farxiga) tablet 10 mg, 10 mg, oral, Daily, Анна Wright MD, 10 mg at 04/20/24 1110 ezetimibe (Zetia) tablet 10 mg, 10 mg, oral, Daily, Анна Wright MD, 10 mg at 04/20/24 1108 furosemide (Lasix) injection 40 mg, 40 mg, intravenous, q12h, Malina Jha MD hydrALAZINE (Apresoline) tablet 25 mg, [...] tablet 50 mg, 50 mg, oral, Daily, Bhargav Rosado MD, 50 mg at 04/20/24 1110 [...] tablet 20 mg, 20 mg, oral, Daily, Bhargav Rosado MD, 20 mg at 04/20/24 1110 [...] 90 mg, 90 mg, oral, BID, Анна (more content not included)...[facility]-12-2024 Note04/20/24 1013 Admission Assessment Questions Verify insurance with patient Yes Do you understand medical disease or what brought you into the hospital? Yes Who is your current PCP? Abraham Cesar Can I schedule a follow up appointment for you at the time of discharge? Yes Do you understand why you are taking your current medications? Yes Are you taking your medications as prescribed? Yes Did patient provide teach back? Yes Pharmacy Bedside Delivery Status Interested Does the patient have a lining caser assigned to them through their insurance? [...] able to send link and activate MyChart? YesUnSt. [facility]11-12-2024 NoteOccupational Therapy Occupational Therapy Evaluation Patient Name: Laura Lawson : 1950 Today's Date: 04/20/2024 Time In: 733 Time Out: 753 She was transferred to [facility] from [facility] for NSTEMI. General Subjective: friendly and cooperative, reports generalized weakness and fatigue Patient Active Problem List Diagnosis Allergic rhinitis Angiomyolipoma of kidney Benign essential hypertension Cerebrovascular disease Chronic foot ulcer ([facility]) Coronary atherosclerosis Decreased estrogen level Diabetic retinopathy associated with type 2 diabetes mellitus ([facility]) Diaphragmatic hernia Difficulty walking Dyspnea on exertion Generalized osteoarthritis Gout History of arthritis History of hysterectomy Hyperglycemia due to type 2 diabetes mellitus ([facility]) 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 ([facility]) Low back pain Morbid obesity ([facility]) Neoplasm of uncertain behavior of kidney Obstructive sleep apnea syndrome Osteoarthritis of knee Osteoporosis Peripheral venous insufficiency Polyneuropathy due to type 2 diabetes mellitus ([facility]) Preoperative evaluation to rule out surgical contraindication Pulmonary function studies abnormal Pure hypercholesterolemia Renal mass Skin sensation disturbance Type 2 diabetes mellitus without complication ([facility]) Umbilical hernia Uric acid nephrolithiasis NSTEMI (non-ST elevated myocardial infarction) ([facility]) Acute exacerbation of CHF (congestive heart failure) ([facility]) COVID-19 Acquired spondylolisthesis Acute on chronic diastolic heart failure ([facility]) Coronary artery disease (CAD) excluded Diastolic dysfunction GERD (gastroesophageal reflux disease) History of carpal tunnel surgery of right wrist Hyperlipidemia Impaired mobility and endurance Localized edema Lumbar radiculopathy Morbid obesity with body mass index (BMI) of 45.0 to 49.9 in adult ([facility]) Paresthesia of skin Primary osteoarthritis of both knees S/P drug eluting coronary stent placement Ulcer of foot due to type 2 diabetes mellitus ([facility]) Pericardial effusion CAD in [place] artery Coronary artery disease Coronary artery disease involving [place] coronary artery of [place] heart with other form of angina pectoris (CMS/HCC) Chronic systolic heart failure ([facility]) Combined forms of age-related cataract of [...] Limits General Assessment General Assessment Hearing: (mild [place]) Hand Dominance: Right Home Living Home Living Type of Home: House Lives With: Significant other Home Adaptive Equipment: Walker rolling, Rollator (sc, gb, hhs) Home Layout: One level Home Access: Stairs to enter with rails (4) Bathroom Shower/Tub: Walk-in shower Prior Level of Function Prior Function Level of [place]: Independent with ADLs and functional transfers, Independent [...] body clothing?: A Little (Min Assist/Contact Guard/Supervision) Bathing(Includ (more content not included)...[facility]19-[facility]SULTATION Reason for Consult: Deep tissue injury and diabetic ulcers Subjective History of Present Illness: aLura Lawson is a 73 y.o. female with a PMH of HTN, DM, hyperlipidemia, CAD s/p PCI to LAD, RCA on 10/2023 and heart failure. She was transferred to [facility] from [facility] for NSTEMI. Patient states she has been following with [facility] for the wounds to her left [...] mg, 300 mg, oral, Daily, Joshua Segal MD, 300 mg at 04/19/24 1008 aspirin chewable tablet 81 mg, 81 mg, oral, Daily, Joshua Segal MD, 81 mg at 04/19/24 1008 baclofen (Lioresal) tablet 10 mg, 10 mg, oral, Nightly, Joshua Segal MD clopidogrel (Plavix) tablet 75 mg, 75 mg, oral, Once Daily, Joshua Segal MD, 75 mg at 04/19/24 0845 colchicine tablet 0.6 mg, 0.6 mg, oral, Daily, Bhargav Rosado MD, 0.6 mg at 04/19/24 1152 dapagliflozin propanediol (Farxiga) tablet 10 mg, 10 mg, oral, Daily, Joshua Segal MD, 10 mg at 04/19/24 1008 ezetimibe (Zetia) tablet 10 mg, 10 mg, oral, Daily, Joshua Segal MD, 10 mg at 04/19/24 1008 furosemide (Lasix) injection 40 mg, 40 mg, intravenous, Daily, Joshua Segal MD, 40 mg at 04/19/24 1135 hydrALAZINE (Apresoline) tablet 25 mg, 25 mg, oral, BID, Joshua Segal MD, 25 mg at 04/19/24 1008 insulin glargine (Lantus) injection vial 80 Units, 80 Units, subcutaneous, q AM, Joshua Segal MD insulin lispro (HumaLOG) injection 0-10 Units, 0-10 Units, subcutaneous, q6h FRANNY, Joshua Segal MD, 4 Units at 04/19/24 1253 metoprolol succinate XL (Toprol-XL) 24 hr tablet 50 mg, 50 mg, oral, Daily, Bhargav Rosado MD, 50 mg at 04/19/24 1152 nitroglycerin (Nitrostat) SL tablet 0.4 mg, 0.4 mg, sublingual, q5 min PRN, Joshua Segal MD potassium chloride CR (Klor-Con M20) ER tablet 20 mEq, 20 mEq, oral, Daily with breakfast, Joshua Segal MD, 20 mEq at 04/19/24 0846 pregabalin (Lyrica) capsule 25 mg, 25 mg, oral, BID, Joshua Segal MD, 25 mg at 04/19/24 1010 rosuvastatin (Crestor) tablet 20 mg, 20 mg, oral, Daily, Bhargav Rosado MD, 20 mg at 04/19/24 1152 sacubitril-valsartan (Entresto) 49-51 mg per tablet 1 tablet, 1 tablet, oral, BID, Joshua Segal MD, 1 tablet at 04/19/24 1008 Insert peripheral IV, , , Once AND Saline lock IV, , , Once AND sodium chloride flush 10 mL, 10 mL, intravenous, q8h PRN, Joshua Segal MD spironolactone (Aldactone) tablet 25 mg, 25 mg, oral, Once Daily, Joshua Segal MD, 25 mg at 04/19/24 0835 Social History Socioeconomic History Marital status: Single [...] Not on file Stress: Not on file So (more content not included)...[facility]11-11-2024 NoteConsult to cardiology pharmacist to see if she can be treated with Ozemipic for diabetes and CAD Titrate as tolerated Also, please do med reconciliation and education Diagnosis Plan 1. 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 Diabetes mellitus type II, non insulin dependent ([facility]) 3. NSTEMI (non-ST elevated myocardial infarction) ([facility]) Ambulatory referral to Cardiology Pharmacist 4. Status post insertion of drug eluting coronary artery stent Ambulatory referral to Cardiology Pharmacist 5. Diabetes mellitus due to underlying condition with other circulatory complication, with long-term current use of insulin ([facility]) Ambulatory referral [facility]ist[facility] NotePhysical Therapy Currently off of the floor this morning for heart cath. Will likely follow up tomorrow for evaluation. Smooth Bazzi PT, DPTUnSt. Vincent Hospital11-11-2024 NoteLabs and chart reviewed Patient with chest pain [...] of care with patient and RN at bedside.[facility]11-11-2024 NoteHospital Medicine History and Physical 04/19/2024 5:40 AM THE HOSPITALIST TEAM PREFERS TO USE Pryv FOR NON-URGENT COMMUNICATION 7AM-7PM. IF I DO NOT RESPOND WITHIN 20 MINUTES OR URGENT MATTERS, PLEASE CALL THROUGH THE TYPESETTER PERFORATOR OPERATOR. FROM 7PM-7AM, PLEASE PAGE [phone](COVR). Chief Complaint No chief complaint on file. History of Present Illness Laura Lawson is an 73 y.o. female transferred from [facility] where she was admitted with ongoing [...] Negative. Problem List Principal Problem: Angina pectoris ([facility]) Assessment and Plan NSTEMI Chest [...] this hospital stay by a member of [facility]. Past Medical History Past Medical History: Diagnosis Date Abnormal ECG CHF (congestive heart failure) ([facility]/HCC) Coronary artery disease Diabetes mellitus (more content not included)...[facility]11-07-2024 History of Present illness Narrative* Narinder Meredith, DPM - 04/15/2024 3:50 PM EST Patient: Laura Lawson : 1950 PCP: Abraham Cesar MD SUBJECTIVE This is a 73 [...] Arthritis Unknown COPD (chronic obstructive pulmonary disease) ([facility]/HCC) Coronary artery disease (CAD) excluded Diabetes ([facility]/HCC) GERD (gastroesophageal reflux disease) Gout Hyperlipidemia ([facility]/HCC) Hypertension ([facility]/HCC) Kidney stones Obesity Sleep apnea Thyroid disease ([facility]/HCC) Type 2 diabetes mellitus ([facility]/HCC) Umbilical hernia without obstruction and without gangrene [...] 2 BD Insulin Syringe U/F 31G X 10/22 1 ML misc, USE DIRECTED UNDER THE SKIN TWO TIMES DAILY, Disp:180 each, Rfl: 3 candesartan (Atacand) 32 MG tablet, TAKE 1 TABLET DAILY, Disp: 90 tablet, Rfl: 3 carvedilol (Coreg) 6.25 MG tablet, TAKE 1 TABLET IN THE MORNING AND IN THE EVENING. TAKE WITH MEALS, Disp: 200 tablet, Rfl: 3 clopidogrel (Plavix) 75 MG tablet, Take 1 tablet (75 mg) by mouth in the morning., Disp: 90 tablet,Rfl: 0 [facility] Clotrimazole 3 2 % vaginal [...] 1 each in the evening and 1 eachbefore bedtime. ONE TOUCH ULTRA STRIPS DX: e11.65., [...] under the skin in the morning and 25Units at noon and 25 Units in the evening. Inject before meals., Disp: , Rfl: insulin pen needle (BD Pen Needle Cass 2nd Gen) 32G x 4 mm misc, USE DIRECTED ONCE DAILY, Disp: 100 each, Rfl: 3 insulin syringe-needle U-100 31G X 5/16 0.5 mL misc, Inject under the skin 2 (two) times a day. Use as instructed, Disp: , Rfl: Klayesta [id number] UNIT/GM powder, Apply 1 application topically in the morning and 1 application before bedtime., Disp: , Rfl: meloxicam (Mobic) 15 MG tablet, TAKE 1 TABLET DAILY WITH FOOD, Disp: 90 tablet, Rfl: 3 nitroglycerin (Nitrostat) 0.3 MG SL tablet, Place 0.3 mg under the tongue every 5 (five) minutes ifneeded for chest pain., Disp: , Rfl: omeprazole [...] by mouth in the morning and 1 tabletbefore bedtime., Disp: 200 tablet, Rfl: 3 spironolactone [...] evening. Take before meals., Disp: , Rfl: Carolynn Patton SoloStar 300 UNIT/ML injection, Inject 100 Units under the skin in the morning., Disp: ,Rfl: Social History: Social History Socioeconomic History Marital [...] min Stress: No Stress Concern Present (02/23/2024) [place] [employer] - Occupational Stress Questionnaire Feeling of Stress : Not at all Social Connections: Moderately Isolated (02/23/2024) Social Connection and Isolation Panel [NHANES] Frequency of Communication with Friends and Family: More than three times a week Frequency of Social Gatherings with Friends and Family: Once a week Attends Christian Services: Never Active Member of Clubs or Organizations: Yes Attends Club or Organization Meetings: 1 to 4 times per year Marital Status: Never Intimate Partner Violence: Unknown (10/08/2023) [facility] from [facility] Humiliation, Afraid, Rape, and Kick questionnaire Fear [...] b/l feet. +1pitting edema to bilateral ankles VASC: Negative PT and DP pulses bilaterally NEURO: 5.07 [place] Avi monofilament test diminished to digits and forefoot bilaterally 125Hz tuning fork diminished to 1st MPJ bilaterally ORTHO: Positive pain on palpation to nails 1 through 10 ASSESSMENT 1. Diabetes mellitus due to underlying condition with diabetic polyneuropathy, without long-term current use of insulin ([facility]) 2. Pain due to onychomycosis of toenails of both feet 3. Peripheral venous insufficiency PLAN Discussed proper foot care with patient today. Debride nails in length and thickness digits 1 through 10 Visit spent with patient education on condition and treatment of condition. Patient to keep feet elevated when nonweightbearing Narinder Meredith DPM documented in this encounterFreeman Cancer [id number] Evaluation note* Diagnosis Onset Date Resolution Status Admit Date Chronic radicular low back pain acute April 08 11:15am History of lumbar fusion acute April 08, 2024 11:15am Failed back syndrome acute Dece mber 2023 9:58am Other chronic pain acute Decemb er 2023 9:58am Sacroiliitis acute May 9:58am [facility] Work Phone: [phone]) 711-863210-25-2024 History of Present illness Narrative* Abraham Cesar MD - 04/02/2024 11:00 AM EDT Images from the original note were not included. Subjective Patient ID: Laura Lawson is a 73 y.o. female who presents for Diabetes. Diabetes Mellitus Patient presents for follow up of diabetes. Current symptoms include: hyperglycemia. Patient deniesfoot ulcerations, hypoglycemia , nausea, paresthesia of the [...] in the morning and 1 tablet (10 mg)before bedtime. 200 tablet 2 BD Insulin Syringe [...] mm misc USE DIRECTED ONCE DAILY 100 each3 insulin syringe-needle U-100 31G X 5/16 0.5 mL misc Inject under the skin 2 (two) times a day. Useas instructed Klayesta [id number] UNIT/GM powder Apply 1 application topically in [...] No Known Problems Sister Cancer Maternal Grandfather [place] Yunielkraig williamson Cancer Mother's Sister Cherelle Naidu Diabetes [...] 2013 Disease:Diabetes mellitus, type 2 HERNIA REPAIR VA ARTHRD ANT INTERBODY MIN DSC LUMBAR 03/18/2022 L3-L5 Anterior Lumbar Interbody Fusion, Pedicle Screw Replacement SPINE SURGERY [id number] THYROIDECTOMY TOTAL VAGINAL HYSTERECTOMY Visit Vitals BP [...] hyperglycemia, with long-term current use of insulin ([facility]) - POCT Glycated hemoglobin, total - Improving. No med change today. Recheck in 2 months. Abnormal MRI, lumbar spine - Has f/up with Dr Roa. Bone edema in L2, ? Cause. Follow up in about 2 months (around 06/02/2024) for DM- A1C. documented in this encounterFreeman Cancer [id number] History of Present illness Narrative* HOLLEY White - 03/29/2024 2:00 PM EDT Images from the original note [...] in the morning and 1 tablet (10 mg)before bedtime. 200 tablet 2 BD Insulin Syringe [...] mm misc USE DIRECTED ONCE DAILY 100 each3 insulin syringe-needle U-100 31G X 5/16 0.5 mL misc Inject under the skin 2 (two) times a day. Useas instructed Klayesta [id number] UNIT/GM powder Apply 1 application topically in [...] 2013 Disease:Diabetes mellitus, type 2 HERNIA REPAIR VA ARTHRD ANT INTERBODY MIN DSC LUMBAR 03/18/2022 L3-L5 Anterior Lumbar Interbody Fusion, Pedicle Screw Replacement SPINE SURGERY [id number] THYROIDECTOMY TOTAL VAGINAL HYSTERECTOMY Visit Vitals BP [...] for Appointment As Scheduled. documented in this encounterFreeman Cancer [id number] Miscellaneous Notes* Telephone Encounter - Arminda Christianson CMA - 03/19/2024 10:33 AM EDT Per last ov note, patient is to be called in 6 months and see how she is doing. Patient states she is doing great; she is currently following up with Dr. Gomez for carpel tunnel. She wishes to follow up as needed. She is to call if there are any questions or concerns. Closing note. documented in this encounterMount Ascutney HospitalAdtrade10-11-2024 Telephone encounter Note* Telephone Encounter - Arminda Christianson CMA - 03/19/2024 10:33 AM EDT Per last ov note, patient is to be called in 6 months and see how she is doing. Patient states she is doing great; she is currently following up with Dr. Gomez for carpel tunnel. She wishes to follow up as needed. She is to call if there are any questions or concerns. Closing [facility]. [facility] History of Present illness Narrative* Abraham Cesar MD - 03/15/2024 9:00 AM EDT Images from the original note [...] Daily BD Insulin Syringe U/F 31G X 10/22 1 ML misc USE DIRECTED UNDER THE [...] mm misc USE DIRECTED ONCE DAILY 100 each3 insulin syringe-needle U-100 31G X 5/16 0.5 mL misc Inject under the skin 2 (two) times a day. Useas instructed Klayesta [id number] UNIT/GM powder Apply 1 application topically in [...] mg) by mouth in the morning and 1tablet (10 mg) before bedtime. 200 tablet 2 [...] 2013 Disease:Diabetes mellitus, type 2 HERNIA REPAIR VA ARTHRD ANT INTERBODY MIN DSC LUMBAR 03/18/2022 L3-L5 Anterior Lumbar Interbody Fusion, Pedicle Screw Replacement SPINE SURGERY [id number] THYROIDECTOMY TOTAL VAGINAL HYSTERECTOMY Visit Vitals BP [...] up for After MRI. documented in this encounterFreeman Cancer [id number] NoteUT Cardiology - [facility] Subjective Laura Lawson is a 73 y.o. 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 ([facility]) Low back pain Morbid obesity ([facility]) Neoplasm of uncertain behavior of kidney Obstructive sleep apnea syndrome Osteoarthritis of knee Osteoporosis Peripheral venous insufficiency Polyneuropathy due to type 2 diabetes mellitus ([facility]) Preoperative evaluation to rule out surgical contraindication Pulmonary function studies abnormal Pure hypercholesterolemia Renal mass Skin sensation disturbance Type 2 diabetes mellitus without complication ([facility]) Umbilical hernia Uric acid nephrolithiasis NSTEMI (non-ST elevated myocardial infarction) ([facility]) Acute exacerbation of CHF (congestive heart failure) ([facility]) COVID-19 Acquired spondylolisthesis Acute on chronic diastolic heart failure ([facility]) Coronary artery disease (CAD) excluded Diastolic dysfunction GERD (gastroesophageal reflux disease) History of carpal tunnel surgery of right wrist Hyperlipidemia Impaired mobility and endurance Localized edema Lumbar radiculopathy Morbid obesity with body mass index (BMI) of 45.0 to 49.9 in adult ([facility]) Paresthesia of skin Primary osteoarthritis of both knees S/P drug eluting coronary stent placement Ulcer of foot due to type 2 diabetes mellitus ([facility]) Pericardial effusion CAD in muscogee artery Coronary artery disease Coronary artery disease involving muscogee coronary artery of muscogee heart with other form of angina pectoris ([facility]) Chronic systolic heart failure ([facility]) Combined forms of age-related cataract [...] to light. Neck: Th (more content not included)...[facility]09-25-2024 History of Present illness Narrative* Silva Rhoades, PT - 03/03/2024 1:00 PM EDT Physical Therapy Treatment Visit Patient Name: Laura Lawson Today's Date: 03/03/2024 Encounter Diagnoses Name Primary? Acute right-sided back pain with sciatica Yes Acute right-sided low back pain with right-sided sciatica Visit number: 15 Timed Code Treatment Minutes: 45 minutes Total Treatment Time: 65 minutes Time In: 1255 Time Out: 1400 History: Pt states she has been having increase pain in right low back since just before November 23.Pt states she has been to ER due to pain. Pt states she just finished a round of steroids yesterday; states kind of helped yet kind of not. Has injection from PCP which really did not help either. Ptstates pain will occasionally radiate to right mid thigh. Precautions: Lumbar fusion; falls; universal Subjective: Pt states pain in right LB continues to rates about 4/10. States she continues without pain in right LE; however, LBP will not go away. Not doing exercises as much as she should at home. Objective: PT Evaluation (12/30/2023) LUMBAR SPINE AROM: flex fingers to mid story with increase pain, extension limited 75% due to right low back pain, bilateral SB limited 50% due to pain Strength: right hip 3+ to 4-/5, quad 4/5, ankle DF 4+/5; left hip 4- to 4/5, knee and ankle 4+/5 Palpation: Moderate to severe tenderness right lower lumbar region Special Test: bilateral slump testing is negative Neurological: Reflexes: 1 bilateral Myotomes: negative Dermatomes: negative Special Test: negative clonus Treatment: Education: HEP education with demonstration, Educated on Eval Findings and POC Manual Therapy: (10 minutes) Passive ROM, Joint mobilization, Soft Tissue Mobilization, Myofascial Release, Muscle Energy Technique, Neural Mobilization, Myofascial Cupping, Dry Needling, IASTM, and Scar mobilization as needed. Manual long axis distraction to right LE in reclined position. Therapeutic Exercise: (17 minutes) Strength, Endurance, Flexibility, ROM, HEP, Neural Mobilization,Power, and Core Stability as needed. Progressed standing ex this date; rest breaks needed due to LEfatigue with prolong standing. Scifit x 10 minutes Therapeutic Activity: (18 minutes) Exercises to improve dynamic activities, functional tasks, functional mobility to return to prior activity level as needed. Neuromuscular re-education: Balance Training, Muscle Facilitation, Dynamic Stability, Core Stabilization, and Blood Flow Restriction Training (BFRT) as needed. Modalities: HP to low back during manual therapy and 5 minutes following (15 min) Heat, Ice, Electrical Stimulation, Ultrasound, Cervical Mechanical Traction, Lumbar Mechanical Traction, Iontophoresis, and Fluidotherapy as needed. Assessment: Back Index 02/05/24: Pt has completed 15 PT sessions for low back and right LE pain. Sitting rest breaks required duringstanding activities due to complaints of increase right low back pain. Strength right hip 4-/5. Anticipate discharge to home program following next session. Outcome Measure Back Index: Rehab Diagnosis: Low back and right LE pain and weakness; difficulty walking Short Term Goal: To be met in 2 weeks Goal 1: Pt to be instructed in home exercise program. 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 Goal 2: Pt to have full trunk ROM without complaints of increase pain at end ranges to assist with functional tasks. Goal 3: Pt to report pain no greater than 3/10 with function tasks, ADL's, and work related activities. Goal 4: Pt to score no greater than 14 on Back Index indicating improved QOL. Pt will benefit from skilled PT for 2x/week from 12/30/2023 to 03/09/2024 to address the above impairments. I hereby deem this POC medically necessary. Please sign below. Date: documented in this [facility]09-23-2024 History of Present illness Narrative* Abraham Cesar MD - 03/01/2024 11:30 AM EDT Images from the original note were not included. Subjective Patient ID: Laura Lawson is a 73 y.o. female who presents for Diabetes. Pt BP is elevated today but she did not take her meds this morning Diabetes Mellitus Patient presents for follow up of diabetes. Current symptoms include: hyperglycemia. Patient deniesfoot ulcerations, hypoglycemia , nausea, paresthesia of the feet, visual disturbances, and vomiting. Evaluation to date has included: fasting blood sugar, fasting lipid panel, and hemoglobin A1C. Home sugars: BGs range between 200 and 300 Diabetes Pertinent negatives for diabetes include no chest pain and no fatigue. Current Outpatient Medications on File Prior to Visit Medication Sig Dispense Refill spironolactone (Aldactone) 25 MG tablet allopurinol (Zyloprim) 300 MG tablet TAKE 1 TABLET DAILY 100 tablet 3 aspirin 81 MG EC tablet Take 81 mg by mouth in the morning. atorvastatin (Lipitor) 80 MG tablet Take 80 mg by mouth Daily baclofen (Lioresal) 10 MG tablet Take 1 tablet (10 mg) by mouth in the morning and 1 tablet (10 mg)before bedtime. 200 tablet 2 BD Insulin Syringe [...] mouth in the morning. 30 tablet 11 HANDICAP PLACARD 5 YEAR 5 Units by [...] mm misc USE DIRECTED ONCE DAILY 100 each3 insulin syringe-needle U-100 31G X 5/16 0.5 mL misc Inject under the skin 2 (two) times a day. Useas instructed Aroldo [id number] UNIT/GM powder Apply 1 application topically in [...] under the skin in the morning. [DISCONTINUED] dapagliflozin (Farxiga) 10 MG Take 1 tablet (10 mg) by mouth Daily 90 tablet 0 [DISCONTINUED] glucose blood test strip 1 each by Other route in the morning and 1 each in the evening and 1 each before bedtime. ONE TOUCH ULTRA STRIPS DX: e11.65. 100 each 1 [DISCONTINUED] sacubitril-valsartan (Entresto) 49-51 MG tablet TAKE 1 TABLET IN THE MORNING AND 1 TABLET BEFORE BEDTIME 200 tablet 3 No current facility-administered medications on file prior [...] No Known Problems Sister Cancer Maternal Grandfather [place] Yuniel williamson Cancer Mother's Sister Cherelle Naidu Diabetes Father's Sister Nancy Logan Past Medical History: Diagnosis Date Angiomyolipoma of kidney Arthritis Unknown COPD (chronic obstructive pulmonary disease) ([facility]/HCC) Coronary artery disease (CAD) excluded Diabetes (CMS/HCC) [...] 2013 Disease:Diabetes mellitus, type 2 HERNIA REPAIR VA ARTHRD ANT INTERBODY MIN DSC LUMBAR 03/18/2022 L3-L5 Anterior Lumbar Interbody Fusion, Pedicle Screw Replacement SPINE SURGERY [id number] THYROIDECTOMY TOTAL VAGINAL HYSTERECTOMY Visit Vitals BP 142/78 Pulse 82 Ht 5' 2.5 Wt 233 lb SpO2 96% BMI 41.94 kg/m Smoking Status Never BSA 2.16 m Review of Systems Constitutional: Negative for [...] normal. Behavior: Behavior normal. Office Visit on 03/01/2024 Component Date Value Ref Range Status Hemoglobin A1C 03/01/2024 10.2 Final Office Visit on 01/26/2024 Component Date Value Ref Range Status Hemoglobin A1C 01/26/2024 8.9 Final Assessment/Plan Diagnoses and all orders for this visit: Coronary artery disease involving muscogee coronary artery of muscogee heart without angina pectoris ([facility]) - This is a chronic medical condition that is stable since last assessment. No changes in treatmentare suggested at this time. Type 2 diabetes mellitus with hyperglycemia, with long-term current use of insulin ([facility]) - glucose blood test strip; 1 each by Other route in the morning and 1 each in the evening and 1 each before bedtime. ONE TOUCH ULTRA STRIPS DX: e11.65. - POCT Glycated hemoglobin, total - She needs to take her Tuojeo daily. Has only taken it 3 times in the past month. - Discussed CGM, I advised her to start using one- she refused. - Risks of uncontrolled Diabetes were discussed AT LENGTH. Including short term risks of acute events and rodent exterminator risks of uncontrolled DM. Acute on chronic diastolic heart failure ([facility]) - sacubitril-valsartan (Entresto) 49-51 MG tablet; Take 1 tablet by mouth in the morning and 1 tablet before bedtime. - This office visit was spent in consultation regarding the patient's current medical problems, differential diagnoses, testing/imaging results, and treatment options. Greater than 25 minutes was spent in [id number]-[id number] consultation and coordination of care. - No current active congestive heart failure. Dyspnea at exertion, but not at rest. No evidence of pulmonary edema. Medications unchanged. Follow up in about 4 weeks (around 03/29/2024) for DM- A1C. documented in this encounterFreeman Cancer [id number] History of Present illness Narrative* Silva Rhoades, PT - 02/18/2024 11:00 AM EDT Physical Therapy Treatment Visit Patient Name: Laura Lawson Today's Date: 02/18/2024 Encounter Diagnoses Name Primary? Acute right-sided back pain with sciatica Yes Acute right-sided low back pain with right-sided sciatica Visit number: 12 Timed Code Treatment Minutes: 42 minutes Total Treatment Time: 60 minutes Time In: 1109 Time Out: 1213 History: Pt states she has been having increase pain in right low back since just before November 23.Pt states she has been to ER due to pain. Pt states she just finished a round of steroids yesterday; states kind of helped yet kind of not. Has injection from PCP which really did not help either. Ptstates pain will occasionally radiate to right mid thigh. Precautions: Lumbar fusion; falls; universal Subjective: Pt states overall pain is improving. Greatest pain is when getting out of bed, pain in right low back. Running late for appointment today. Pain: 08/16 Objective: PT Evaluation (12/30/2023) LUMBAR SPINE AROM: flex fingers to mid story with increase pain, extension limited 75% due to right low back pain, bilateral SB limited 50% due to pain Strength: right hip 3+ to 4-/5, quad 4/5, ankle DF 4+/5; left hip 4- to 4/5, knee and ankle 4+/5 Palpation: Moderate to severe tenderness right lower lumbar region Special Test: bilateral slump testing is negative Neurological: Reflexes: 1 bilateral Myotomes: negative Dermatomes: negative Special Test: negative clonus Treatment: Education: HEP education with demonstration, Educated on Eval Findings and POC Manual Therapy: () Passive ROM, Joint mobilization, Soft Tissue Mobilization, Myofascial Release, Muscle Energy Technique, Neural Mobilization, Myofascial Cupping, Dry Needling, IASTM, and Scar mobilization as needed. Therapeutic Exercise: (30 minutes) Strength, Endurance, Flexibility, ROM, HEP, Neural Mobilization,Power, and Core Stability as needed. Progressed standing ex this date; rest breaks needed due to LEfatigue with prolong standing. Therapeutic Activity: (12 minutes) Exercises to improve dynamic activities, functional tasks, functional mobility to return to prior activity level as needed. Neuromuscular re-education: Balance Training, Muscle Facilitation, Dynamic Stability, Core Stabilization, and Blood Flow Restriction Training (BFRT) as needed. Modalities: Seated CP to lower back post session (15 min) Heat, Ice, Electrical Stimulation, Ultrasound, Cervical Mechanical Traction, Lumbar Mechanical Traction, Iontophoresis, and Fluidotherapy as needed. Assessment: Back Index 02/05/24: 24/50 Pt has completed 12 PT sessions for low back and right LE pain. Continued seated and standing exercises with increased volumes and no issue. Pt requires CGA with some standing ex due to decrease balance and safety concerns. Educated pt on proper gait with RW and to try to remain upright vs flexed. Will continue. CP at end of session for symptom relief. Outcome Measure Back Index: 2650 Rehab Diagnosis: Low back and right LE pain and weakness; difficulty walking Short Term Goal: To be met in 2 weeks Goal 1: Pt to be instructed in home exercise program. 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 Goal 2: Pt to have full trunk ROM without complaints of increase pain at end ranges to assist with functional tasks. Goal 3: Pt to report pain no greater than 3/10 with function tasks, ADL's, and work related activities. Goal 4: Pt to score no greater than 14 on Back Index indicating improved QOL. Pt will benefit from skilled PT for 2x/week from 12/30/2023 to 03/09/2024 to address the above impairments. I hereby deem this POC medically necessary. Please sign below. Date: documented in this encounterFreeman Cancer [id number] History of Present illness Narrative* Narinder Meredith, MICHELLEM - 02/05/2024 3:20 PM EDT Patient: Laura Lawson : 1950 PCP: Abraham Cesar MD SUBJECTIVE This is a 73 y.o. female that presents today with a CC of elongated, thick nails. Pt states nails have been elongated and thick for many years and cause pain with ambulation in shoegear. Pt has tried previous treatment with minimal relief. Pt presents today for nail care and treatment. Patient is type 2 diabetic with peripheral neuropathy Pt also presents today for secondary complaint of swelling to b/l ankle regions and feet. They state that condition is starting to worsten have tried no treatments for the condition. Statesswelling worstens with prolonged standing activities. Allergies: Allergies Allergen Reactions Gabapentin Palpitations Tramadol [...] TWO TIMES DAILY, Disp:180 each, Rfl: 3 candesartan (Atacand) 32 MG tablet, TAKE 1 TABLET DAILY, Disp: 90 tablet, Rfl: 3 carvedilol (Coreg) 6.25 MG tablet, TAKE 1 TABLET IN THE MORNING AND IN THE EVENING. TAKE WITH MEALS, Disp: 200 tablet, Rfl: 3 clopidogrel (Plavix) 75 MG tablet, Take 1 tablet (75 mg) by mouth in the morning., Disp: 90 tablet,Rfl: 0 [facility] Clotrimazole 3 2 % vaginal cream, INSERT 1 APPLICATORFUL VAGINALLY AT BEDTIME FOR 5 NIGHTS, Disp: , Rfl: dapagliflozin (Farxiga) 10 MG, Take 1 tablet (10 mg) by mouth Daily, Disp: 90 tablet, Rfl: 0 dulaglutide (Trulicity) 3 MG/0.5ML solution pen-injector, Inject 3 mg under the skin 1 (one) time per week, Disp: 4 each, Rfl: 11 ezetimibe (Zetia) 10 MG tablet, Take 1 tablet (10 mg) by mouth in the morning., Disp: 30 tablet, Rfl: 11 glucose blood test strip, 1 each by Other route in the morning and 1 each in the evening and 1 eachbefore bedtime. ONE TOUCH ULTRA STRIPS DX: e11.65., [...] under the skin in the morning and 25Units at noon and 25 Units in the evening. Inject before meals., Disp: , Rfl: insulin pen needle (BD Pen Needle Cass 2nd Gen) 32G x 4 mm misc, USE DIRECTED ONCE DAILY, Disp: 100 each, Rfl: 3 insulin syringe-needle U-100 31G X 5/16 0.5 mL misc, Inject under the skin 2 (two) times a day. Use as instructed, Disp: , Rfl: Klayesta 565881 UNIT/GM powder, Apply 1 application topically in the morning and 1 application before bedtime., Disp: , Rfl: meloxicam (Mobic) 15 MG tablet, TAKE 1 TABLET DAILY WITH FOOD, Disp: 90 tablet, Rfl: 3 nitroglycerin (Nitrostat) 0.3 MG SL tablet, Place 0.3 mg under the tongue every 5 (five) minutes ifneeded for chest pain., Disp: , Rfl: omeprazole [...] , Rfl: sacubitril-valsartan (Entresto) 49-51 MG tablet, TAKE 1 TABLET IN THE MORNING AND 1 TABLET BEFORE BEDTIME, Disp: 200 tablet, Rfl: 3 torsemide (Demadex) 20 MG tablet, Take 1 tablet (20 mg) by mouth in the morning and 1 tablet (20 mg) in the evening. Take before meals., Disp: , Rfl: Tousalome Mcfaddenar 300 UNIT/ML injection, Inject 100 Units under the skin in the morning., Disp: ,Rfl: Social History: Social History Socioeconomic History Marital status: Unmarried Spouse name: Not on file Number of children: 0 Years of education: Not on file Highest education level: Not on file Occupational History Not on file Tobacco Use Smoking status: Never Smokeless tobacco: Never Substance and Sexual Activity Alcohol use: Never Comment: Caffeine: 1-2 cups per day Drug use: Never Sexual activity: Not on file Other Topics Concern Not on file Social History Narrative Not on file Social Determinants of Health Financial Resource Strain: Low Risk (10/08/2023) Received from [facility], [facility] Overall Financial Resource Strain (CARDIA) Difficulty of Paying Living Expenses: Not hard at all Food Insecurity: No Food Insecurity (10/08/2023) Received from [facility], [facility] Hunger Vital Sign Within the past 12 months, you worried that your food would run out before you got the money to buymore.: Never true Ran Out of Food in the Last Year: Not on file Transportation Needs: No Transportation Needs (10/08/2023) Received from [facility], [facility] Transportation In the past 12 months, has lack of transportation kept you from medical appointments or from getting medications?: No Lack of Transportation (Non-Medical): Not on file Physical Activity: Inactive (01/12/2023) Exercise Vital Sign Days of Exercise per Week: 0 days Minutes of Exercise per Session: 0 min Stress: No Stress Concern Present (01/12/2023) [place] [place] [employer] - Occupational Stress Questionnaire Feeling of Stress : Not at all Social Connections: Moderately Isolated (01/12/2023) Social Connection and Isolation Panel [NHANES] Frequency of Communication with Friends and Family: More than three times a week Frequency of Social Gatherings with Friends and Family: Once a week Attends Christian Services: Never Active Member of Clubs or Organizations: No Attends Club or Organization Meetings: Never Marital Status: Living with partner Intimate Partner Violence: Unknown (10/08/2023) Received from [facility], [facility] Humiliation, Afraid, Rape, and Kick questionnaire Fear of Current or Ex-Partner: No Emotionally Abused: Not on file Physically Abused: Not on file Sexually Abused: Not on file Housing Stability: Low Risk (10/08/2023) Received from [facility], [facility] Housing Stability Vital Sign Unable to Pay for Housing in the Last Year: Not on file Number of Places Lived in the Last Year: Not on file In the last 12 months, was there a time when you did not have a steady place to sleep or slept in ashelter (including now)?: No ROS: Gastrointestinal: denies abdominal pain, ulcers, or changes in appetite or bowel habits Musculoskeletal: Positive generalized arthritis to joints and denies loss of strength. Cardiovascular: denies CP, palpitations, irregular rhythms OBJECTIVE LE EXAM: DERM: Elongated thick yellow crumbly nails digits 1 through 10. Diminished hair growth b/l feet. Plus one pitting edema to bilateral ankles VASC: Negative PT and DP pulses bilaterally NEURO: 5.07 [place] Avi monofilament test diminished to digits and forefoot bilaterally 125Hz tuning fork diminished to 1st MPJ bilaterally ORTHO: Positive pain on palpation to nails 1 through 10 ASSESSMENT 1. Peripheral venous insufficiency 2. Onychomycosis 3. Toe pain, bilateral 4. Diabetes mellitus due to underlying condition with diabetic polyneuropathy, without long-term current use of insulin ([facility]) PLAN Discussed proper foot care with patient today. Debride nails in length and thickness digits 1 through 10 Visit spent with patient education on condition and treatment of condition. Pt to continue with elevation of feet while resting or NWB. Discussed compression hose and the use of stockings for edema. Discussed condition in detail. Recommendation for [id number] compression stockings at this time and may consider prescription stockings in the future. Narinder Meredith DPM documented in this encounterFreeman Cancer [id number] Evaluation note* Type Assessment Date assessment Both eyes affected b y mild nonproliferative diabetic retinopathy with macular edema, associated with type 2 diabetes mellitus impression Both eyes affected b y mild nonproliferative diabetic retinopathy with macular edema, associated with type 2 diabetes mellitus: E11.3213. Bilateral [facility] Physicians Work Phone: 1(783) 640-501408-01-2024 History of Present illness Narrative* Encounter Date [...] did not change her last glasses RX. [facility] Physicians Work Phone: 1(286) 196-196708-01-2024 Instructions* Date Instruction Additional Infor mation Impression/Plan [...] edema, associated with type 2 diabetes mellitus [facility] Physicians Work Phone: 1(168) 669-691407-08-2024 History of Present illness Narrative* Valorie Tran MD - 12/15/2023 11:00 AM EDT Images from the original note were not included. [address] [facility] [id number] Patient: Laura Lawson Date of : 1950 Encounter Date: 12/15/2023 History of Present Illness: The patient is a 73 y.o. female, a new patient, and is here for the evaluation of bilateral hand and feet numbness, she has history of type 2 diabetes mellitus diagnosed in her 30s and has been on insulin and oral hypoglycemic agents. She reports mild numbness of her feet but more severe numbness/tingling of her fingers in both buster. She reports mild hand weakness however able to perform ADLs. She uses walker for gait stability. She has history of bilateral carpal tunnels syndrome diagnosed more than a decade ago and underwent carpal tunnel release surgery on the right with minimal relief andearly recurrence of similar symptoms. She has never had surgery done on the left and currently bothof her hands are equally affected. She denies any weakness of her hands. Reports waking up at nightand shaking hands to help with tingling/pain. She has tried gabapentin in the past for low back pain and was discontinued due to adverse effects (palpitations/chest discomfort). Her other past medical history includes hypertension, hyperlipidemia, CHF, CAD s/p stent placement and old right cerebellar stroke. Her HbA1C in September/2023 was 10.2 but most recently according to the patient was checked few weeks ago at outside lab and was 8. Allergies: Patient has no known allergies. Past Medical, Family, Surgical, and Social History Update: The following portions of the patient's history were reviewed and updated as appropriate: allergies, current medications, past family history, past medical history, past social history, past surgicalhistory and problem list. Past Medical History: Diagnosis Date Diabetes ([facility]) Heart disease Sleep apnea No family history on file. Past Surgical History: Procedure Laterality Date BIOPSY MASS HERNIA REPAIR HYSTERECTOMY Carpal tunnel release surgery Coronary angioplasty and stent placement 201303/18/2022 - L3-L5 Anterior Lumbar Interbody Fusion, Pedicle Screw Replacement Thyroidectomy Current Outpatient Medications Medication Sig Dispense Refill aspirin 81 mg Take 1 tablet (81 mg total) by mouth in the morning. atorvastatin (LIPITOR) 80 mg tablet Take 1 tablet (80 mg total) by mouth in the morning. baclofen (LIORESAL) 10 mg tablet Take 1 tablet (10 mg total) by mouth in the morning and 1 tablet (10 mg total) before bedtime. hydrALAZINE (APRESOLINE) 100 mg tablet Take 1 tablet (100 mg total) by mouth 3 (three) times a day. insulin lispro (HumaLOG) 100 unit/mL injection Inject 0.25 mL (25 Units total) under the skin in the morning and 0.25 mL (25 Units total) at noon and 0.25 mL (25 Units total) in the evening. Inject before meals. meloxicam (MOBIC) 15 mg tablet Take 1 tablet (15 mg total) by mouth in the morning. MICONAZOLE-7 2 % vaginal cream Insert 1 applicator into the vagina nightly. omeprazole (PriLOSEC) 40 mg capsule Take 1 capsule (40 mg total) by mouth every morning before breakfast. potassium chloride (KLOR-CON M 20) 20 MEQ CR tablet Take 1 tablet (20 mEq total) by mouth in the morning and 1 tablet (20 mEq total) before bedtime. torsemide (DEMADEX) 20 mg tablet Take 1 tablet (20 mg total) by mouth 2 (two) times a day. TOUJEO MAX U-300 SOLOSTAR 300 unit/mL (3 mL) insulin pen Inject 300 mL under the skin in the morning. TRULICITY 1.5 mg/0.5 mL pen injector Inject 1.5 mg under the skin once a week. No current facility-administered medications for this visit. (All medications reviewed and updated by provider since last office visit or hospitalization) Social History: Social History Substance and Sexual Activity Alcohol Use Not Currently Social History Tobacco Use Smoking Status Never Smokeless Tobacco Never (If patient a smoker, smoking cessation counseling offered) Review of Systems: Neurological ROS: Review of Systems Constitutional: Negative for diaphoresis, fatigue and fever. HENT: Negative for trouble swallowing. Eyes: Negative for photophobia. Respiratory: Negative for apnea, cough and choking. Cardiovascular: Negative for palpitations. Gastrointestinal: Negative for constipation, nausea and vomiting. Endocrine: Negative for cold intolerance and heat intolerance. Genitourinary: Negative for dysuria and enuresis. Musculoskeletal: Positive for back pain and gait problem. Negative for neck pain and neck stiffness. Skin: Negative for pallor and rash. Neurological: Positive for numbness. Negative for dizziness, tremors, seizures, syncope, facial asymmetry, speech difficulty, weakness, light-headedness and headaches. Psychiatric/Behavioral: Negative for behavioral problems, confusion, decreased concentration and self-injury. The patient is not nervous/anxious. Physical Exam: Vitals: Vitals: 12/15/23 1112 BP: 135/71 Pulse: 86 Neurological Physical Exam: General: Well-appearing, no apparent distress. HEENT: Head is normocephalic and atraumatic. Neck: Supple Chest: normal breathing effort Heart: Normal rate Extremities: No edema. Neurological examination: Mental status: The patient is awake alert and oriented 3. Speech is within normal limits. There is no dysarthria or aphasia. Vocabulary and knowledge base is normal to conversational testing. Cranial nerves: Pupils are equally round reactive to light and accommodation. Visual rubio are full to confrontation. The extraocular motions are intact with no nystagmus. Patient's face is symmetric with equal facial sensation. Hearing is intact to finger rubs. The tongue protruded midline and the palate elevated symmetrically. Shoulder shrug is intact bilaterally. Motor examination: Full strength at 5/5, including biceps, triceps, deltoids, digit extensors, kneeflexors, knee extensors, and foot dorsiflexors except bilateral hip flexors (limited due to pain, at least 4/5) There is normal tone and bulk throughout with no tremor or involuntary movement noted. Reflexes: Deep tendon jerks are 2/4 bilaterally at the biceps, triceps, brachioradialis, 1/4 patellar, and absent reflexes at Achilles tendons. Plantar responses are mute. Sensory examination: Distal sensory loss in all 4 extremities, glove and stockingin distribution. Sensation to light touch, pinprick, and temperature reduced distally in up to wrist bilaterally andin lower limbs up to mid story bilaterally. Proprioception impaired at great toes and intact at ankle and distally in upper limbs. Vibratory sense absent at toes bilaterally, diminished at ankle and normal at knees bilaterally. Vibratory sense normal in upper limbs. Sensation is intact and equal bilaterally to fine touch and temperature sensation. Vibratory sense is intact at the bilateral great toes. Coordination and gait: Finger to nose normal, unable to perform heel to story maneuvers due to limited mobility at hip and knee joints. There is no dysmetria. The patient walks with a walker. Assessment and Plan: This is a 73 year old right handed female with longstanding type 2 diabetes with numbness and tingling of both hands and feet. Prior history of bilateral carpal tunnel syndrome s/p carpal tunnel surgery of right hand more than a decade ago. Last HbA1C in September/2023 was 10.2. Her history and examination are suggestive of peripheral neuropathy related to longstanding diabetes and superimposed bilateral carpal tunnel syndrome. She will get nerve conduction study/EMG for polyneuropathy and carpal tunnel syndrome to see if sheis a candidate for carpal tunnel release surgery. Target hemoglobin A1C is below 7 to help slow the progression of diabetic neuropathy. Follow up in 4-6 months. She denies neuropathic pain and previously have tried gabapentin for lumbar radiculopathy prior to surgery but was discontinued due to adverse effects. Valorie Tran MD Clinical Neurophysiology Fellow [facility] * Casey العلي MD - 12/15/2023 11:00 AM EDT Attending Attestation: I saw the patient. I participated and was physically present during the critical/brooks portions of the service. I was directly involved in the management and treatment plan of the patient. I reviewed the resident's note. Additional Notes/Findings: documented in this encounterCenterville07-08-2024 Instructions* Patient Instructions* Valorie Tran MD - 12/15/2023 11:00 AM EDT Will get Nerve conduction study/EMG for polyneuropathy related to diabetes and carpal tunnel syndrome. Target hemoglobin A1C is below 7 Follow up in 4-6 months. documented in this encounterCenterville03-28-2024 Miscellaneous Notes* Telephone Encounter - Trista Castaneda [...] with Dr. العلي on 12/15/23 11:00 at [facility]. She wanted to wait some months out due to Dr. Uribe saying it wasn't urgent for her to come in soon for the carpel tunnel. documented in this encounterCenterville03-28-2024 Telephone encounter Note* Telephone Encounter - Trista Castaneda - 09/04/2023 2:53 PM EDT [facility] New [facility] referral received. Dx:Bilateral carpal tunnel syndrome [G56.03]-H/o bilateral CTS, previous right carpel tunnel surgery. Diminished sensation in both hands/fingers./ Referred by:Robbi Uribe MD Referred to: Providers patient can see in clinic: Please contact patient to schedule from referral, Thanks! PLEASE REVIEW PLAN OVER THE PHONE AND ADVISE PATIENT TO BRING UPDATED INSURANCE INFORMATION TO THEIR NEW PATIENT APPOINTMENT [place]03-28-2024 Telephone encounter Note* Telephone Encounter - Kasandra Weaver - 09/04/2023 2:53 PM EDT Received call today 09/05/23 3:10 from patient in regard to previous message and she scheduled for new patient appt with Dr. العلي on 12/15/23 11:00 at [facility]. She wanted to wait some months out due to Dr. Uribe saying it wasn't urgent for her to come in soon for the carpel tunnel. [facility] Events [id number] History of Present illness Narrative* Robbi Uribe [...] has since followed up with Cardiology at [facility]. Patient is present with friend today. [...] occlusions or narrowing, cardiology should consider a [place] [facility] heart monitor such as a LOOP recorder. Followup with general neurology for h/o carpel tunnel and possible diabetic neuropathy. Will call patient in 6 months, if patient is doing well, no followup needed. Call for any questions/concerns. documented in this encounterCenterville03-12-2024 Instructions* Patient Instructions* Robbi Uribe MD - 08/19/2023 11:30 AM EDT Continue ASA daily Continue cholesterol medication Continue diabetic medication Continue BP medication Followup with cardiology as scheduled. Will clear patient for heart cath procedures and stents if needed. If heart cath shows no significant occlusions or narrowing, cardiology should consider a [place] [facility] heart monitor such as a LOOP recorder. Followup with general neurology for h/o carpel tunnel and possible diabetic neuropathy. Will call patient in 6 months, if patient is doing well, no followup needed. Call for any questions/concerns. documented in [place] encounterWood [place] [facility] [id number] History of Present illness Narrative* Abraham Cesar MD - 07/21/2023 10:30 AM EST Subjective Patient ID: Laura Lawson is a 72 y.o. female who presents for Follow-up (Admitted to [facility] 07/02/23 dx: Covid,CHF exac., NSTEMI discharged home 07/07/23 started on farxiga, coreg stopped labetolol pt had follow up appt with cardiology 07/16/23). Flowsheet Row Patient Outreach from 07/09/2023 in [facility] [employer] with Soledad Guerrero RN Discharge Information ED or Hospital Discharge? Hospital Patient has been contacted within two business days of discharge Yes Discharge Date 07/07/23 Discharge Hospital [facility] [D/C Acute on Chronic heart Failure, exacerbation [...] Comments labs, ecg, CXR. Pt transferred from [facility] to [facility], tested positive for covid, negative for covid x2 at [facility]. Pt to follow with Cardiology, appt on 07/16 at 2:20pm. Neurology 08/19/23 [facility] Neurology in [place]. Pt reports no shortness of breath. Using [...] 2013 Disease:Diabetes mellitus, type 2 HERNIA [facility] ANT INTERBODY MIN DSC LUMBAR 03/18/2022 [...] noted above. 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 documented in this encounterFreeman Cancer [id number] Miscellaneous Notes* Telephone Encounter - Tasha Girard RN - 07/08/2023 4:03 PM EST This patient needs outpatient follow up in the [facility] in 4-6 weeks ([place] [facility] follow up),also she needs 30-day event monitor. (Being done through [place]) * Telephone Encounter - Kasandra Henriquez - 07/08/2023 4:03 PM EST Called patient and vm is not set up. No answer Spoke with Latrice, patients roommate and transportation, and scheduled appt documented in this [facility]01-30-2024 Telephone encounter Note* Telephone Encounter - Tasha Girard RN - 07/08/2023 4:03 PM EST This patient needs outpatient [facility] in 4-6 weeks ([place] [facility] follow up),also she needs 30-day event monitor. (Being done through [place]) [facility]01-30-2024 Telephone encounter Note* Telephone Encounter - Kasandra Henriquez - 07/08/2023 4:03 PM EST Called patient and vm is not set up. No answer Spoke with Latrice, patients roommate and transportation, and scheduled appt [facility]10-05-2023 Evaluation note* Encounter Date Diagnosis Assessment Notes [...] of view she is done very well. [facility] Other 04-06-2023 Evaluation note* Encounter Date Diagnosis [...] back in 6 months with another x-ray. [facility] Other 01-05-2023 Evaluation note* Encounter Date Diagnosis [...] Jun, Spondylolisthesis, lumbar region (ICD-10 - M43.16) [facility] Other 11-10-2022 Evaluation note* Encounter Date Diagnosis [...] Apr, Spondylolisthesis, lumbar region (ICD-10 - M43.16) [facility] Other 10-14-2022 Progress note Author [facility] March 22, 2022 6:34am Note Date/Time March 22, 2022 6 :34am [facility] [address] [place] [address] Neurosurgery Progress Note Signed Patient: Laura Lawson MR#: [id number] : 1950 Acct:[id number] Age/Sex: 71 / F Adm Date: 2 Loc: 4N Room: 0D7834-4 Type: ADM IN Attending Dr: Abner Roa [...] <Electronically signed by MD Abner Roa> 03/22/2234 [facility] Work Phone: [phone] 198-942810-13-2022 Progress note Author [facility] March 21, 2022 7:43am Note Date/Time March 21, 2022 7 :43am [facility] [address] [place] [address] Neurosurgery Progress Note Signed Patient: Laura Lawson MR#: [id number] : 1950 Acct:[id number] Age/Sex: 71 / F Adm Date: 2 Loc: 4N Room: [address] [place] [address] Type: ADM IN Attending Dr: Abner Roa [...] signed by MD Abner Roa> 03/21/22 0743 [facility] Work Phone: [phone]) 563-160510-12-2022 Progress note Author [facility] March 20, 2022 10:22am Note Date/Time March 20, 2022 1 0:22am [facility] [address] [place] [address] Neurosurgery Progress Note Signed Patient: Laura Lawson MR#: [id number] : 1950 Acct:[id number] Age/Sex: 71 / F Adm Date: 2 Loc: 4 Room: 4K0431-4 Type: ADM IN Attending Dr: Abner Roa [...] Glucose 245, POC Glucose Comment Will notify dr/automatic glove turner and former/Plan Assessment/Plan (1) Lumbar stenosis with neurogenic claudication: [...] <Electronically signed by MD Abner Roa> 03/20/22 [facility] Work Phone: 1(531) 573-770310-11-2022 Progress note Author [facility] March 19, 2022 7:33am Note Date/Time March 19, 2022 7 :33am [facility] [address] [place] [address] Neurosurgery Progress Note Signed Patient: Laura Lawson MR#: [id number] : 1950 Acct:[id number] Age/Sex: 71 / F Adm Date: 2 Loc: 4 Room: 1K8340-3 Type: ADM IN Attending Dr: Abner Roa [...] signed by MD Abner Roa> 03/19/22 0733 [facility] Work Phone: [phone]) 629-349208-09-2022 Evaluation note* Encounter Date Diagnosis Assessment Notes [...] stenosis with neurogenic claudication (ICD-10 - M48.062) [facility] Other 07-01-2022 Evaluation note* Encounter Date Diagnosis [...] - G89.29) Continue with current treatment plan [facility] Other 06-30-2022 Evaluation note* Encounter Date Diagnosis [...] Asymptomatic age-related postmenopausal state (ICD-10 - Z78.0) [facility] Other 06-02-2022 Evaluation note* Encounter Date Diagnosis [...] - G89.29) Continue with current treatment plan [facility] Other 05-18-2022 Evaluation note* Encounter Date Diagnosis [...] - G89.29) Continue with current treatment plan [facility] Other 05-09-2022 Evaluation note* Encounter Date Diagnosis [...] greater trochanteric bursa injection in the future. [facility] Other 04-19-2022 Evaluation note* Encounter Date Diagnosis [...] negative findings were considered in medical decision-making. [facility] Other Consult note* Clinical Note Date No Information [facility] Work Phone: Discharge summary* Clinical Note Date No Information [facility] Work Phone: Evaluation noteNo InformationNort [employer] Other Evaluation noteNo assessment information available The [...] COVID- Primary NSTEMI (non-ST elevated myocardial infarction) ([facility]) Acute myocardial infarction, subendocardial infarction, episode of care unspecified Acute on chronic diastolic heart failure ([facility]) Acute on chronic diastolic heart failure Type 2 diabetes mellitus with hyperglycemia, with long-term current use of insulin ([facility]) 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) Morbid (severe) obesity due to excess calories (E66.01) Body mass index [BMI] 45.0-49.9, adult (Z68.42) 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 ([facility]) documented in this encounter [facility]* Diagnosis Onset Date Resolution Status History of lumbar fusion acu te Spondylolisthesis, lumbar region acute [facility] Work Phone: Evaluation note* Diagnosis Acute right-sided low back pain with right-sided sciatica- Primary Right lumbar radiculopathy Thoracic or lumbosacral neuritis or radiculitis, unspecified Muscle spasm Spasm of muscle documented in this encounter [facility]* Diagnosis Spinal stenosis of lumbar region without neurogenic claudication- Primary Right lumbar radiculopathy Thoracic or lumbosacral neuritis or radiculitis, unspecified Difficulty walking Difficulty in walking documented in this encounter [facility]* Diagnosis Type 2 diabetes mellitus with hyperglycemia, with long-term current use of insulin ([facility])- Primary Abnormal MRI, lumbar spine documented in this encounter [facility]* Diagnosis Diabetes mellitus due to underlying condition with diabetic polyneuropathy, without long-term current use of insulin ([facility])- Primary Pain due to onychomycosis of toenails of both feet Peripheral venous insufficiency Unspecified venous (peripheral) insufficiency documented in this encounter [facility]* Diagnosis Burning with urination Dysuria documented in this encounter [facility]* Diagnosis Acute cystitis with hematuria- Primary documented in this encounter [facility]* Diagnosis Acute right-sided back pain with sciatica- Primary Acute right-sided low back pain with right-sided sciatica documented in this encounter [facility]* Diagnosis Acute right-sided back pain with sciatica- Primary Acute right-sided low back pain with right-sided sciatica documented in this encounter [facility]* Diagnosis Acute right-sided back pain with sciatica- Primary Acute right-sided low back pain with right-sided sciatica documented in this encounter [facility]* Diagnosis Peripheral venous insufficiency- Primary Unspecified venous (peripheral) insufficiency Onychomycosis Dermatophytosis of nail Toe pain, bilateral Diabetes mellitus due to underlying condition with diabetic polyneuropathy, without long-term current use of insulin ([facility]) documented in this encounter [facility]* Diagnosis Acute right-sided back pain with sciatica- Primary Acute right-sided low back pain with right-sided sciatica documented in this encounter [facility]* Diagnosis Coronary artery disease involving muscogee coronary artery of muscogee heart without angina pectoris ([facility])- Primary Type 2 diabetes mellitus with hyperglycemia, with long-term current use of insulin ([facility]) Acute on chronic diastolic heart failure ([facility]) Acute on chronic diastolic heart failure documented in this encounter [facility]* Diagnosis Diabetic polyneuropathy associated with diabetes mellitus due to underlying condition ([facility])- Primary Bilateral carpal tunnel syndrome Carpal tunnel syndrome documented in [facility] encounter [facility]* Diagnosis TIA (transient ischemic attack)- Primary Unspecified transient cerebral ischemia Bilateral carpal tunnel syndrome Carpal tunnel syndrome documented in this encounter [facility]* Diagnosis Type 2 diabetes mellitus with diabetic polyneuropathy, with long-term current use of insulin (CMS/HCC)- Primary Chronic systolic congestive heart failure (CMS/HCC) Muscle weakness (generalized) Peripheral venous insufficiency Unspecified venous (peripheral) insufficiency 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, limited to breakdown of skin (CMS/HCC) Cellulitis of left lower extremity Type 2 diabetes mellitus with other specified complication, with long-term current use of insulin documented in this encounter [facility]* Diagnosis Type 2 diabetes mellitus with diabetic polyneuropathy, with long-term current use of insulin (CMS/HCC)- Primary Chronic systolic congestive heart failure (CMS/HCC) 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, limited to breakdown of skin (CMS/HCC) Cellulitis of left lower extremity Morbid obesity (CMS/HCC) Morbid obesity Non compliance w medication regimen documented in this encounter [facility]* Diagnosis Diabetes mellitus due to underlying condition with diabetic polyneuropathy, without long-term current use of insulin (CMS/HCC)- Primary Pain due to onychomycosis of toenails of both feet Peripheral venous insufficiency Unspecified venous (peripheral) insufficiency documented in this encounter [facility]* Diagnosis Routine general medical examination at health care facility- Primary Routine general medical examination at a health care facility ACP (advance care planning) Other specified counseling Type 2 diabetes mellitus with diabetic polyneuropathy, with long-term current use of insulin (CMS/HCC) Type 2 diabetes mellitus with hyperglycemia, with long-term current use of insulin ([facility]) Rheumatoid arthritis, unspecified Estrogen deficiency Other ovarian failure Breast screening Breast screening, unspecified documented in this encounter [facility]* Diagnosis Diabetes mellitus due to underlying condition with diabetic polyneuropathy, without long-term current use of insulin ([facility])- Primary Pain due to onychomycosis of toenails of both feet Peripheral venous insufficiency Unspecified venous (peripheral) insufficiency documented in this encounter [facility]* Diagnosis Type 2 diabetes mellitus with diabetic polyneuropathy, with long-term current use of insulin (HCC)- Primary Chronic systolic congestive heart failure ([facility]) Muscle weakness (generalized) Peripheral venous insufficiency Unspecified venous (peripheral) insufficiency Cellulitis of finger of right hand Ataxia Lack of coordination documented in this encounter [facility]* Diagnosis Cellulitis of finger of right hand- Primary Blister of toe of right foot, initial encounter Peripheral venous insufficiency Unspecified venous (peripheral) insufficiency Chronic systolic congestive heart failure (HCC) Dilated cardiomyopathy (HCC) Other primary cardiomyopathies documented in this encounter [facility] HealthcareEvaluation note* Diagnosis Type 2 diabetes mellitus with diabetic polyneuropathy, with long-term current use of insulin ([facility]) documented in this encounter [facility] HealthcareEvaluation note* Diagnosis Chronic systolic congestive heart failure (HCC) Reduced mobility Other ill-defined conditions Type 2 diabetes mellitus with diabetic polyneuropathy, with long-term current use of insulin (HCC) Paroxysmal atrial fibrillation (HCC) Atrial fibrillation Diabetes mellitus due to underlying condition with diabetic polyneuropathy, without long-term current use of insulin ([facility])- Primary Pain due to onychomycosis of toenails of both feet Peripheral venous insufficiency Unspecified venous (peripheral) insufficiency documented in this encounter [facility] HealthcareHistory and physical note* Clinical Note Date No Information [facility] Work Phone: Hiscwxy general Narrative - Reported* Type Description Date Medical History diabetes Medical History obstructive sleep apnea Surgical History total hysterectomy Surgical History hernia repair Surgical History neck mass removal [facility] Other [facility] general Narrative - Reported* Type Description Date Medical History diabetes Medical History obstructive sleep apnea Surgical History total hysterectomy Surgical History hernia repair Surgical History neck mass removal Hospitalization History See Above [facility] Other Hospital course Narrative No data available for this section [facility] Discharge instructions Additional Instructions DISCHARGE INSTRUCTIONS [...] [facility]: Hospital Discharge instructionsAmbulatory Orders* Referral to Pain Management Location: None [facility] Work Phone: InstructionsNot on filedocumented in this encounter [facility]ructionsNot on filedocumented in this encounter [facility] SystemInstructionsNot on filedocumented in this encounter [facility]* Clinical Note Date No Information [facility] Work Phone: Progrgwg note No data available for this section [facility] Reason for referral (narrative)* Reason For Referral No Information [facility] Work Phone: Revsll for referral (narrative)* Consultation (Routine) - Pending Review Specialty Diagnoses / Procedures Referred By Raul zamora Referred To Contact Neurology Diagnoses Bilateral carpal tunnel syndrome Robbi Uribe MD [address] [place] [address], [address] [place] [address] Casey العلي MD [address] [place] [address], [address] [place] [address] Referral ID Status Reason Start Date Expiration Date Visits Requested Visits Authorized [id number] Pending Review Specialty Services Required 08/19/2023 08/18/2024 1 1 [facility] SystemReason for referral (narrative)No reason for referral [facility] Work Phone: Reason for visit NarrativeNeurosurgery Referral Update [facility] Other reason for visit Narrative* Consultation (Routine) - Pending Review Specialty Diagnoses / Procedures Referred By Raul zamora Referred To Contact Neurology Diagnoses Bilateral carpal tunnel syndrome Robbi Uribe MD [facility], [address] [place] [address] Casey العلي MD [address] [place] [address], [address] [place] [address] Referral ID Status Reason Start Date Expiration Date Visits Requested Visits Authorized [id number] Pending Review Specialty Services Required 08/19/2023 08/18/2024 1 1 [email or web address] Summary Purpose Family History No Family History [...] Unknown Heart disease Unknown Malignant neoplasm Unknown Relationship Condition Age at Onset Recorded Date/T mirella father Diabetes mellitus Unknown Hypertension Unknown mother Malignant neoplasm of skin Unknown Heart disease Unknown Advance Directives No Advanced Directives Records Found Advance Directive Response Recorded Date/ Time Advance Directives No December 11 10:57am Advance Directive Response Recorded Date/ Time Advance Directives No December 11 9:57am Directive Yes / No Effective Date File Name No Information Reason for Referral Specialty Diagnoses / Procedures Referred By Contac t Referred To Contact Diagnoses Bilateral carpal tunnel syndrome Diabetic polyneuropathy associated with diabetes mellitus due to underlying condition ([facility]) Procedures EMG NCV Valorie Tran MD [address] [place], [place] [address], [address] [place] [address] Referral ID Status Reason Start Date Expiration Date V isits Requested Visits Authorized [id number] Pending Review 12/15/2023 12/14/2024 1 1 Specialty Diagnoses / Procedures Referred By Contac t Referred To Contact Diagnoses Right lumbar radiculopathy Procedures MR lumbar spine wo contrast Abraham Cesar MD [address] [facility] [address] [place] [address] Referral ID Status Reason Start Date Expiration Date V isits Requested Visits Authorized [id number] Pending Review 03/15/2024 09/11/2024 1 1 Reason leg strengthening, g ait training, balance Diagnosis 1 Spondylolisthesis, l umbar region (M43.16) Referral Organization [facility] urosurgery Referring Provider First Name Abner Referring Provider Last Name Janina Referring Provider Specialty Neurologica l Surgery Referred Organization [facility] Referred Address ,[place], [place],[address] Referred Provider Specialty Physical The rapist Referral Priority Routine Reason Evaluate and Treat O utPatient PT in [place] for Gait Training and Leg Strengthening Diagnosis 1 Lumbar radiculopathy (M54.16) Referral Organization [facility] Ne urosurgery Referring Provider First Name Abner Referring Provider Last Name Janina Referring Provider Specialty Neurologica l Surgery Referred Organization [facility] Referred Address [address] [place], [place],[address] Referred Provider Specialty Physical The rapist Referral Priority Routine Reason eval and treat Diagnosis 1 Lumbar radiculopathy (M54.16) Referral Organization [facility]emen t Referring Provider First Name Devang Referring Provider Last Name Keri Referring Provider Specialty Pain Medici ne Referred Organization [facility] Last anthony Co Referred Provider Abraham Georges Referred Address [address] [facility],[address] [facility],[place], [place],[id number] Referred Provider Specialty Neurosurgery Referral Priority Routine [...] Complaint increased pain, new MRI in pacs Chief Complaint Admit Date increased pain, new MRI in pacs April 08, 2024 11:15am Back Pain May 17, 2024 9 :58am Back Pain May 19, 2024 9:11am Back Pain May 19, 2024 10:26am Unknown June 13, 2024 5: 40am Reason for Visit Admit Date Chronic radicular low back pain April 08, 2024 11:15am History of lumbar fusion April 08, 2 024 11:15am Failed back syndrome May 17, 2024 9:58am Other chronic pain May 17, 2024 9 :58am Sacroiliitis May 17, 2024 9 :58am Chief Complaint Admit Date Open Wound October 11, 2024 10:25a m Z98.1 M54.16 G89.29 October 21, 2024 10:37 am yearly f/u XLIF w/xray October 21, 2024 11 :25am Reason for Visit Admit Date Diabetes mellitus, type 2 October 11, 2024 10:25am Edema of both lower extremities October 11, 2024 10:25am Neuropathic pain October 11, 2024 10:25a m Ulcer of left heel October 11, 2024 10:25a m Ulcer of right heel October 11, 2024 10:25a m Venous insufficiency (chronic) (peripher al) October 11, 2024 10:25am Venous stasis dermatitis of both lower e xtremities October 11, 2024 10:25am Wound infection October 11, 2024 10:25a m Chief Complaint Admit Date Z98.1 M54.16 G89.29 October 21, 2024 10:37 am yearly f/u XLIF w/xray October 21, 2024 11 :25am Open Wound November 29, 2024 10:3 4am I70.245 E11.59 December 07, 2024 9:25a m Reason for Visit Admit Date Chronic radicular low back pain October 11:25am Trochanteric bursitis, right hip October 11:25am Diabetes mellitus, type 2 November 29 10:34am Edema of both lower extremities November 10:34am Neuropathic pain November 29, 2024 10:3 4am Ulcer of left heel November 29, 2024 10:3 4am Ulcer of right heel November 29, 2024 10:3 4am Venous insufficiency (chronic) (peripher al) November 29, 2024 10:34am Venous stasis dermatitis of both lower e xtremities November 29, 2024 10:34am Wound infection November 29, 2024 10:3 4am Additional Source Comments INFORMATION SOURCE (unrecogn ized section and content) DATE CREATED AUTHOR 08/19/2018 [facility] DATE CREATED AUTHOR AUTHOR'S ORGANIZ ATION 11/19/2022 [facility] DATE CREATED AUTHOR AUTHOR'S ORGANIZ ATION 12/16/2023 [facility] DATE CREATED AUTHOR AUTHOR'S ORGANIZ ATION 07/09/2024 [facility] DATE CREATED AUTHOR AUTHOR'S ORGANIZ ATION 07/10/2024 [facility] DATE CREATED AUTHOR AUTHOR'S ORGANIZ ATION 07/11/2024 [facility] DATE CREATED AUTHOR AUTHOR'S ORGANIZ ATION 11/27/2024 Syed Sinclair [facility] DATE CREATED AUTHOR AUTHOR'S ORGANIZ ATION 02/10/2025 [facility] DATE CREATED AUTHOR AUTHOR'S ORGANIZ ATION 02/19/2025 [facility] DATE CREATED AUTHOR AUTHOR'S ORGANIZ ATION 03/03/2025 [facility] EPIC DATE CREATED AUTHOR AUTHOR'S ORGANIZ ATION 03/15/2025 [facility] REASON FOR VISIT (unrecogniz ed section and content) Reason Comments Follow-up Admitted to [facility] 06/10 09/30 dx: Covid,CHF exac., NSTEMI discharged home 07/07/23 started on farxiga, coreg stopped labetolol pt had follow up appt with cardiology 07/16/23 Reason Comments Med Refill baclofen Reason Comments Med Refill Tizanidine Reason Comments Diabetes Reason Comments DM Foot Care Dm Nails Specialty Diagnoses / Procedures Referred By Contac t Referred To Contact Physical Therapy Diagnoses Acute right-sided low back pain with right-sided sciatica Procedures VA OFFICE/OUTPATIENT NEW HIGH MDM 60 MINUTES Nati Virk PA [address] [facility] [address] [place] [address] Silva Rhoades PT Referral ID Status Reason Start Date Expiration Date Visits Requested Visits Authorized [id number] Authorized Specialty Services Required 12/19/2023 06/16/2024 30 30 Reason Comments DM Foot Care DM Nails Referral ID Status Reason Start Date Expiration Date V isits Requested Visits Authorized [id number] Closed Specialty Services Required 12/19/2023 06/16/2024 30 30 Reason Onset Date Comments NEW PATIENT REFERRAL 09/04/2023 Reason Comments Diabetes Leg Swelling Left lower leg sores on bilateral feet Pt is requesting referral to wound clinic at [facility] Reason Comments Cellulitis At last o/v she was started on Cephalexin but did not get it until just recently so still has a week left of the ATB. He leg is not seeping like it was but is very dry and would like to know what she can use on the dryness. She also will have her 1st appt with wound care today for her foot. Medication Problem She would like to di scuss going back on Trulicity since she is gaining weight off of it. Reason Comments DM Foot Care Dm nail care Reason Comments Diabetes Edema face to face for lift chair Reason Comments toe blister Pt admits she has calderon d a sore on her great toe of her right foot for about 2 weeks, blister has popped 2 times. Also has a sore on her finger on her right middle finger that she has been on ATB for and feels it is healing. Care Teams (unrecognized sec tion and content) Team Status: Active Member Role Status Michael Cesar II MD Primary Care Provider Active Team Status: Inactive Member Role Status Michael Cesar II MD Primary Care Provider Active Start: October 21, 2024 End: October 21, 2024 Abner Roa MD Attending Provider Active Star t: October 21, 2024 End: October 21, 2024 Team Status: Active Member Role Status Michael Cesar II MD Primary Care Provider Active Start: November 29, 2024 Molly Gallegos APRN Attending Provider Active Start: November 29, 2024 Team Status: Inactive Member Role Status Michael Cesar II MD Primary Care Provider Active Start: December 07, 2024 End: December 07, 2024 Molly Gallegos APRN Attending Provider Active Start: December 07, 2024 End: December 07, 2024 Team Status: Active Member Role Status Michael Cesar II MD Primary Care Provider Active Start: October 11, 2024 Molly Gallegos APRN Attending Provider Active Start: October 11, 2024 Team Status: Active Member Role Status Michael Cesar II MD Primary Care Provider Active Start: October 21, 2024 Abner Roa MD Attending Provider Active Star t: October 21, 2024 Team Status: Inactive Member Role Status Michael Roa MD Attending Provider Active Abraham Cesar II MD Primary Care Provider Active [...] Mancilla RN Other Provider Active Janice Linares RN Other Provider Active Jessica Benson RN Other Provider Active Arcelia Denslow , RN Other Provider Active Sherry Luong , RN Other Provider Active Nanci Gardner , [...] MD Other Provider Active Latonia Ely , POT ANNEALER-C Other Provider Active Roman Rosales MD Other [...] Team Status: Active Member Role Status Dates Abraham Cesar II MD Primary Care Provider Active Abner Roa MD Attending Provider Active Help Desk Associate Relationship Specialty Start Date End Date Abraham Cesar MD [address] [place] [address] PCP - General Internal Medicine 10/21/22 Abraham Cesar MD [address] [place] [address] PCP - ACO Reach 10/31/22 Team Status: Inactive Member Role Status Dates Abraham Cesar II MD Primary Care Provider Active Start: October 23, 2023 End: October 23, 2023 Abner Roa MD Attending Provider Active Star t: October 23, 2023 End: October 23, 2023 Name Effective Dates (start - stop) Status Members No Information Help Desk Associate Relationship Specialty Start Date End Date Abraham Cesar MD [address] [place] [address] PCP - General Internal Medicine 10/21/22 Abraham Cesar MD [address] [place] [address] PCP - ACO Reach 10/31/22 Help Desk Associate Relationship Specialty Start Date End Date Abraham Cesar MD [address] [place] [address] PCP - General Internal Medicine 10/21/22 Abraham Cesar MD [address] [place] [address] PCP - ACO Reach 10/31/22 Help Desk Associate Relationship Specialty Start Date End Date Abraham Cesar MD [address] [place] [address] PCP - General Internal Medicine 10/21/22 Abraham Cesar MD [address] [place] [address] PCP - ACO Reach 10/31/22 Help Desk Associate Relationship Specialty Start Date End Date Abraham Cesar MD [address] [place] [address] PCP - General Internal Medicine 10/21/22 Abraham Cesar MD [address] [place] [address] PCP - ACO Reach 10/31/22 Help Desk Associate Relationship Specialty Start Date End Date Abraham Cesar MD [address] [place] [address] PCP - General Internal Medicine 10/21/22 Abraham Cesar MD [address] [place] [address] PCP - ACO Reach 10/31/22 Team Status: Inactive Member Role Status Dates Abraham Cesar II MD Primary Care Provider Active Start: April 08, 2024 End: April 08, 2024 Urmila Guzman APRN Attending Provider Active Start: April 08, 2024 End: April 08, 2024 Help Desk Associate Relationship Specialty Start Date End Date Abraham Cesar MD [address] [place] [address] PCP - General Internal Medicine 10/21/22 Abraham Cesar MD [address] [place] [address] PCP - ACO Reach 10/31/22 Help Desk Associate Relationship Specialty Start Date End Date Abraham Cesar MD [address] [place] [address] PCP - General Internal Medicine 10/21/22 Abraham Cesar MD [address] [place] [address] PCP - ACO Reach 10/31/22 Help Desk Associate Relationship Specialty Start Date End Date Abraham Cesar MD [address] [place] [address] PCP - General Internal Medicine 10/21/22 Abraham Cesar MD [address] [place] [address] PCP - ACO Reach 10/31/22 Help Desk Associate Relationship Specialty Start Date End Date Abraham Cesar MD [address] [place] [address] PCP - General Internal Medicine 10/21/22 Abraham Cesar MD [address] [place] [address] PCP - ACO Reach 10/31/22 Help Desk Associate Relationship Specialty Start Date End Date Abraham Cesar MD [address] [place] [address] PCP - General Internal Medicine 10/21/22 Abraham Cesar MD [address] [place] [address] PCP - ACO Reach 10/31/22 Help Desk Associate Relationship Specialty Start Date End Date Abrahma Cesar MD [address] [place] [address] PCP - General Internal Medicine 10/21/22 Abraham Cesar MD [address] [place] [address] PCP - ACO Reach 10/31/22 Help Desk Associate Relationship Specialty Start Date End Date Abraham Cesar MD [address] [place] [address] PCP - General Internal Medicine 10/21/22 Abraham Cesar MD [address] [place] [address] PCP - ACO Reach 10/31/22 Help Desk Associate Relationship Specialty Start Date End Date Abraham Cesar MD [address] [place] [address] PCP - General Internal Medicine 10/21/22 Abraham Cesar MD [address] [place] [address] PCP - ACO Reach 10/31/22 Help Desk Associate Relationship Specialty Start Date End Date Abraham Cesar MD [address] [place] [address] PCP - General Internal Medicine 10/21/22 Abraham Cesar MD [address] [place] [address] PCP - ACO Reach 10/31/22 Help Desk Associate Relationship Specialty Start Date End Date Abraham Cesar MD [address] [place] [address] PCP - General Internal Medicine 10/21/22 Abraham Cesar MD [address] [place] [address] PCP - ACO Reach 10/31/22 Help Desk Associate Relationship Specialty Start Date End Date Abraham Cesar MD [address] [place] [address] PCP - General Internal Medicine 10/21/22 Abraham Cesar MD [address] [facility] [address] [place] [address] PCP - ACO Reach 10/31/22 Team Status: Inactive Member Role Status Dates Abraham Cesar II MD Primary Care Provider Active Start: May 17, 2024 End: May 17, 2024 Devang Saavedra MD Attending Provider Active Sta rt: May 17, 2024 End: May 17, 2024 Team Status: Inactive Member Role Status Dates Abraham Cesar II MD Primary Care Provider Active Start: May 19, 2024 End: May 19, 2024 Devang Saavedra MD Attending Provider Active Sta rt: May 19, 2024 End: May 19, 2024 Team Status: Active Member Role Status Dates Abraham Cesar II MD Primary Care Provider Active Start: May 19, 2024 Devang Saavedra MD Attending Provider, Other Provider Active Start: May 19, 2024 Team Status: Inactive Member Role Status Dates Abraham Cesar II MD Primary Care Provider Active Start: June 13, 2024 End: June 13, 2024 Amaury Chin DO Attending Provider Active S tart: June 13, 2024 End: June 13, 2024 Help Desk Associate Relationship Specialty Start Date End Date Abraham Cesar MD [address] [facility] [address] [place] [address] PCP - General Internal Medicine 10/21/22 Abraham Cesar MD [address] [facility] [address] [place] [address] PCP - ACO Reach 10/31/22 Help Desk Associate Relationship Specialty Start Date End Date Abraham Cesar MD [address] [facility] [address] [place] [address] PCP - General Internal Medicine 10/21/22 Abraham Cesar MD [address] [facility] [address] [place] [address] PCP - ACO Reach 10/31/22 Help Desk Associate Relationship Specialty Start Date End Date Abraham Cesar MD [address] [place] [address] PCP - General Internal Medicine 10/21/22 Abraham Cesar MD [address] [place] [address] PCP - ACO Reach 10/31/22 Help Desk Associate Relationship Specialty Start Date End Date Abraham Cesar MD [address] [place] [address] PCP - General Internal Medicine 10/21/22 Abraham Cesar MD [address] [place] [address] PCP - ACO Reach 10/31/22 Help Desk Associate Relationship Specialty Start Date End Date Abraham Cesar MD [address] [place] [address] PCP - General Internal Medicine 10/21/22 Abraham Cesar MD [address] [place] [address] PCP - ACO Reach 10/31/22 Help Desk Associate Relationship Specialty Start Date End Date Abraham Cesar MD [address] [place] [address] PCP - General Internal Medicine 10/21/22 Abraham Cesar MD [address] [place] [address] PCP - ACO Reach 10/31/22 Help Desk Associate Relationship Specialty Start Date End Date Abraham Cesar MD [address] [place] [address] PCP - General Internal Medicine 10/21/22 Abraham Cesar MD [address] [place] [address] PCP - ACO Reach 10/31/22 Help Desk Associate Relationship Specialty Start Date End Date Abraham Cesar MD [address] [place] [address] PCP - General Internal Medicine 10/21/22 Abraham Cesar MD [address] [place] [address] PCP - ACO Reach 10/31/22 Help Desk Associate Relationship Specialty Start Date End Date Abraham Cesar MD [address] [place] [address] PCP - General Internal Medicine 10/21/22 Abraham Cesar MD [address] [place] [address] PCP - ACO Reach 10/31/22 Help Desk Associate Relationship Specialty Start Date End Date Abraham Cesar MD [address] [place] [address] PCP - General Internal Medicine 10/21/22 Abraham Cesar MD [address] [place] [address] PCP - ACO Reach 10/31/22 Help Desk Associate Relationship Specialty Start Date End Date Abraham Cesar MD [address] [place] [address] PCP - General Internal Medicine 10/21/22 Abraham Cesar MD [address] [place] [address] PCP - ACO Reach 10/31/22 Help Desk Associate Relationship Specialty Start Date End Date Abraham Cesar MD [address] [place] [address] PCP - General Internal Medicine 10/21/22 Abraham Cesar MD [address] [place] [address] PCP - ACO Reach 10/31/22 Help Desk Associate Relationship Specialty Start Date End Date Abraham Cesar MD [address] [place] [address] PCP - General Internal Medicine 10/21/22 Abraham Cesar MD [address] [place] [address] PCP - ACO Reach 10/31/22 Help Desk Associate Relationship Specialty Start Date End Date Abraham Cesar MD [address] [place] [address] PCP - General Internal Medicine 10/21/22 Abraham Cesar MD [address] [place] [address] PCP - ACO Reach 10/31/22 Karine Foote LPN [address] [place] [address] 12/23/24 Help Desk Associate Relationship Specialty Start Date End Date Abraham Cesar MD [address] [place] [address] PCP - General Internal Medicine 10/21/22 Abraham Cesar MD [address] [place] [address] PCP - ACO Reach 10/31/22 Karine Foote LPN [address] [place] [address] 12/23/24 Help Desk Associate Relationship Specialty Start Date End Date Abraham Cesar MD [address] [place] [address] PCP - General Internal Medicine 10/21/22 Abraham Cesar MD [address] [place] [address] PCP - ACO Reach 10/31/22 Karine Foote LPN [address] [place] [address] 12/23/24 Help Desk Associate Relationship Specialty Start Date End Date Abraham Cesar MD [address] [place] [address] PCP - General Internal Medicine 10/21/22 Abraham Cesar MD [address] [place] [address] PCP - ACO Reach 10/31/22 Karine oFote LPN [address] [place] [address] 12/23/24 Help Desk Associate Relationship Specialty Start Date End Date Abraham Cesar MD [address] [place] [address] PCP - General Internal Medicine 10/21/22 Abraham Cesar MD [address] [place] [address] PCP - ACO Reach 10/31/22 Karine Foote LPN [address] [place] [address] 12/23/24 Help Desk Associate Relationship Specialty Start Date End Date Abraham Cesar MD [address] [place] [address] PCP - General Internal Medicine 10/21/22 Abraham Cesar MD [address] [place] [address] PCP - ACO Reach 10/31/22 Karine Foote LPN [address] [place] [address] 12/23/24 Help Desk Associate Relationship Specialty Start Date End Date Abraham Cesar MD [address] [place] [address] PCP - General Internal Medicine 10/21/22 Abraham Cesar MD [address] [place] [address] PCP - ACO Reach 10/31/22 Karine Foote LPN [address] [place] [address] 12/23/24 Help Desk Associate Relationship Specialty Start Date End Date Abraham Cesar MD [address] [place] [address] PCP - General Internal Medicine 10/21/22 Abraham Cesar MD [address] [facility] [place] [address] PCP - ACO Reach 10/31/22 Karine Foote LPN [address] [facility] [place] [address] 12/23/24 Goals (unrecognized section and content) Goals may [...] BE BASED ON THE PRIMARY CLINICAL RECORDS. [employer] [facility]. provides no warranty or guarantee of the accuracy or completeness of information in this document.
[2025-03-15 14:18] LABS: Hematocrit 39.8 % (36.0-48.0); Hemoglobin 12.3 g/dL (12.0-16.0); Immature Granulocytes Abs Auto 0.02 10^3/uL (0.00-0.03); Immature Granulocytes Pct Auto 0.2 % (0.0-0.5); Lymphocytes Absolute Auto 1.0 10^3/uL (1.2-3.8); Mean Corpuscular HGB Conc 30.9 g/dL (29.9-35.2); Mean Corpuscular Hemoglobin 27.6 pg (26.7-34.0); Mean Corpuscular Volume 89.2 fL (81.0-99.0); Platelet Count 292 10^3/uL (150-450); Red Blood Count 4.46 10^6/uL (4.20-5.40); White Blood Count 8.5 10^3/uL (4.0-11.0)
[2025-03-15 14:25] LABS: Anion Gap 9.9; Blood Urea Nitrogen 24.0 mg/dL (7.0-18.0); Calcium 9.3 mg/dL (8.5-10.1); Carbon Dioxide 27.7 mmol/L (21.0-32.0); Chloride 105 mmol/L (98-107); Estimated GFR (African America 44 (>=60 mL/min/1.73m^2); Estimated GFR (Non-African Ame 36 (>=60 mL/min/1.73m^2); Glucose 272 mg/dL (74-106); Potassium 4.6 mmol/L (3.5-5.1); Sodium 138 mmol/L (136-145)
[2025-03-15 14:36] LABS: INR 1.25; Partial Thromboplastin Time 28.4 sec (22.3-36.2); Prothrombin Time 13.0 sec (9.0-11.6)
[2025-03-15 14:38] LABS: Lactate/Lactic Acid 2.9 mmol/L (0.4-2.0)
--- NOTE | 2025-03-15 14:52 | ED.GENADUL1 ---
HPI HPI - General Adult General Chief complaint: Wound/Laceration Stated complaint: WOUND CHECK Time Seen by Provider: 03/15/25 13:39 Source: patient Mode of arrival: Wheelchair Limitations: no limitations History of Present Illness HPI narrative: Patient is a 74-year-old female presenting to the emergency department from the wound care clinic for concerns of discoloration of the right toes. I did speak with the patient's TECHNICAL PLANNER from the wound care clinic. She states that she sees the patient bimonthly for wound care of her bilateral feet. However, today, she noticed that the right hallux/second toe were cyanotic and cool to the touch. They obtained bedside Dopplers as they were having a hard time feeling for a pulse, noticed a monophasic waveform. They note she had an SYDNEY on December 07 that was normal. Additionally, she mentions the patient is an insulin-dependent diabetic with a recent A1c of 11%. TECHNICAL PLANNER is concerned for severe peripheral arterial disease. Patient herself states that she noticed discoloration of her toes over the last 2 days. She states she has some mild discomfort, but has chronic pain in her bilateral feet. She is otherwise asymptomatic without any chest pain, shortness of breath, nausea, vomiting, abdominal pain. She states she takes Eliquis and Brilinta for pacemaker/AICD. Related Data Home Medications ?Medication ?Instructions ?Recorded ?Confirmed allopurinol 300 mg tablet 300 mg PO DAILY 07/02/23 03/15/25 aspirin 81 mg tablet,delayed 81 mg PO DAILY 07/02/23 06/13/24 release (Adult Aspirin Regimen) baclofen 10 mg tablet 10 mg PO BID PRN muscle spasm 07/02/23 03/15/25 calcium 315 mg (as 1 tab PO BID 07/02/23 06/13/24 citrate)-vitamin D3 5 mcg (200 unit) tablet meloxicam 15 mg tablet 15 mg PO DAILY 07/02/23 03/15/25 omeprazole 40 mg capsule,delayed 40 mg PO DAILY 07/02/23 03/15/25 release nitroglycerin 0.3 mg sublingual 0.3 mg sublingual Q5M PRN chest 04/19/24 03/15/25 tablet pain spironolactone 25 mg tablet 25 mg PO DAILY 04/19/24 03/15/25 (Aldactone) torsemide 20 mg tablet 20 mg PO DAILY 04/19/24 03/15/25 apixaban 5 mg tablet (Eliquis) 5 mg PO Q12H 06/13/24 06/13/24 atorvastatin 80 mg tablet 80 mg PO QPM 06/13/24 03/15/25 ezetimibe 10 mg tablet 10 mg PO DAILY 06/13/24 06/13/24 hydralazine 25 mg tablet 25 mg PO Q12H 06/13/24 06/13/24 ticagrelor 90 mg tablet (Brilinta) 90 mg PO Q12H 06/13/24 06/13/24 dapagliflozin propanediol 5 mg 5 mg PO DAILY 03/15/25 03/15/25 tablet (Farxiga) sacubitril 24 mg-valsartan 26 mg 0.5 tab PO BID 03/15/25 03/15/25 tablet Allergies Allergy/AdvReac Type Severity Reaction Status Date / Time gabapentin Allergy Mild rash Verified 03/15/25 13:53 Opioid HPI Opioid Management Most Recent Opioid Data: Last Pain Scale 5 Today, 13:53 Last ORT Total Score 0 06/13/24, 09:20 Last ORT Risk Category Low Risk 06/13/24, 09:20 Review of Systems ROS Status of ROS 10 or more systems reviewed and unremarkable except as noted in history and below [facility] Medical History (Updated 03/15/25 @ 17:05 by Meliton Jacques DO) Fall ?W19.XXXA - Unspecified fall, initial encounter (ICD-10) Urinary tract infection ?N39.0 - Urinary tract infection, site not specified (ICD-10) CAD (coronary artery disease) ?I25.10 - Atherosclerotic heart disease of [place] coronary artery without angina pectoris (ICD-10) HLD (hyperlipidemia) ?E78.5 - Hyperlipidemia, unspecified (ICD-10) Knee pain, chronic ?M25.569 - Pain in unspecified knee (ICD-10) ?G89.29 - Other chronic pain (ICD-10) Chronic back pain ?M54.9 - Dorsalgia, unspecified (ICD-10) ?G89.29 - Other chronic pain (ICD-10) CKD stage 3 secondary to diabetes ?E11.22 - Type 2 diabetes mellitus with diabetic chronic kidney disease (ICD-10) ?N18.30 - Chronic kidney disease, stage 3 unspecified (ICD-10) Obesity ?E66.9 - Obesity, unspecified (ICD-10) HFrEF (heart failure with reduced ejection fraction) ?I50.20 - Unspecified systolic (congestive) heart failure (ICD-10) High cholesterol ?E78.00 - Pure hypercholesterolemia, unspecified (ICD-10) Hypertension ?I10 - Essential (primary) hypertension (ICD-10) Diabetes ?E11.9 - Type 2 diabetes mellitus without complications (ICD-10) Surgical History (Updated 06/13/24 @ 09:53 by Zoraida Rodriguez) Carpal tunnel syndrome of left wrist ?G56.02 - Carpal tunnel syndrome, left upper limb (ICD-10) Stented coronary artery ?Z95.5 - Presence of coronary angioplasty implant and graft (ICD-10) Hx of appendectomy ?Z90.49 - Acquired absence of other specified parts of digestive tract (ICD-10) H/O: hysterectomy ?Z90.710 - Acquired absence of both cervix and uterus (ICD-10) Family History (Updated 06/13/24 @ 09:54 by Zoraida Rodriguez) Father Family history of CHF (congestive heart failure) Family history of diabetes mellitus Family history of hypertension Family history of myocardial infarction Grandfather Family history of cancer Social History (Updated 06/13/24 @ 09:55 by Zoraida Rodriguez) Within the past year, how often did you have a drink containing alcohol: never Score interpretation: A score less than 3 is consistent with normal alcohol consumption. Smoking status: Never smoker Non-prescribed substance use: denies use Previous occupational history: disabled Highest level of school completed/degree received: high school graduate Are you now , , , , never or living with a partner: living with partner Little interest or pleasure in doing things: not at all Feeling down, depressed, or hopeless: not at all Exam Narrative Exam Narrative: CONSTITUTIONAL: Well-appearing, answering questions and following commands appropriately SKIN: Was warm and dry. EYES: Sclerae white. EARS, NOSE, THROAT: Moist oral mucosa. RESPIRATORY: Clear to auscultation bilaterally, no wheezes, crackles, or stridor, no use of accessory muscles CARDIOVASCULAR: Normal rate and regular rhythm. Unable to palpate DP or PT pulses on the right. GASTROINTESTINAL: Abdomen is nondistended. MUSCULOSKELETAL: The right 1st and 2nd toe extending to dorsum of the foot/metatarsals is erythematous with rubor, blanchable, and cool to the touch. There are numerous ulcerations of the bilateral feet as well. NEUROLOGIC: Patient is awake and alert. Diminished sensation in the bilateral feet. Good strength in the bilateral feet. Facies were symmetrical. Constitutional Vital Signs, click to edit/add: Last Vital Signs Temp 98.3 F 03/15/25 13:53 Pulse 60 03/15/25 13:53 Resp 16 03/15/25 13:53 BP 110/70 03/15/25 16:28 Pulse Ox 97 03/15/25 16:25 O2 Del Method Room Air 03/15/25 13:53 Course Vital Signs Vital signs: Vital Signs Temperature 98.3 F 03/15/25 13:53 Pulse Rate 60 03/15/25 13:53 Respiratory Rate 16 03/15/25 13:53 Blood Pressure 136/66 03/15/25 13:53 Pulse Oximetry 98 03/15/25 13:53 Oxygen Delivery Method Room Air 03/15/25 13:53 Temperature 98.3 F 03/15/25 13:53 Pulse Rate 60 03/15/25 13:53 Respiratory Rate 16 03/15/25 13:53 Blood Pressure 110/70 03/15/25 16:28 Pulse Oximetry 97 03/15/25 16:25 Oxygen Delivery Method Room Air 03/15/25 13:53 Medical Decision Making MDM Narrative Medical decision making narrative: Patient is a 74-year-old female, history significant for uncontrolled insulin-dependent type 2 diabetes, CHF with an EF of 35% s/p AICD placement on Eliquis, and hypertension, presents to the ED from the wound care clinic for concerns of discoloration/rubor of the right first and second toes extending into the dorsum of the foot. No palpable DP/PT pulses on the right. Her vital signs are within normal limits. She is afebrile and hemodynamically stable. I discussed the patient with her TECHNICAL PLANNER from the wound care clinic. She is concerned for severe peripheral arterial disease. Additionally, she notes that the patient had a normal SYDNEY on December 07. Today, in their office, they did a Doppler of her foot and noted an abnormal monophasic waveform of the DP pulse. Her recent A1C is 11%. My clinical impression is that the patient likely has severe, critical stenosis of the arterial supply to the feet, likely related to her uncontrolled insulin-dependent diabetes/hypertension/arthrosclerosis. The foot does not appear to have infectious changes such as crepitus, fluctuance, or induration. She has had no injuries to suggest underlying fracture. Arterial duplex US was ordered. IV was established and laboratory studies were obtained. Laboratory studies were significant for lactic acidosis of 2.9. This may be related to ischemia of the right foot. She has no other infectious symptoms. Her kidney function appears to be at her baseline with no significant kidney injury. No electrolyte or metabolic derangements otherwise. No leukocytosis or anemia. No thrombocytopenia. Arterial duplex demonstrated no definite evidence for hemodynamic stenosis. Monophasic waveforms anterior tibial artery on the right to the dorsalis pedis artery. No significant elevation of the peak systolic velocity suggest hemodynamic stenosis. I did consult and discussed the patient with vascular surgeon, Dr. Carranza, recommend outpatient follow-up in the clinic tomorrow morning. I gave the physician the patient's information, and they have availability for an appointment tomorrow with Dr. Aguilar. I discussed this with the patient and she was agreeable with the plan. She was given information for the physician name, office location, and phone number. I do believe the patient is stable for discharge. Patient's presentation is most likely consistent with peripheral arterial disease. There is no evidence of acute limb ischemia at this time. They were instructed to follow up with vascular surgery clinic tomorrow morning. Return precautions were given including any new or worsening symptoms. Patient understands and agrees to the plan. FINAL IMPRESSION: #Acute peripheral arterial disease of the right lower extremity DISPOSITION: Discharged home CONDITION: Fair Lab Data Lab results reviewed: Yes I reviewed the patient's lab results Labs: Lab Results 03/15/25 Range/Units 14:09 WBC 8.5 (4.0-11.0) 10^3/uL RBC 4.46 (4.20-5.40) 10^6/uL Hgb 12.3 (12.0-16.0) g/dL Hct 39.8 (36.0-48.0) % MCV 89.2 (81.0-99.0) fL MCH 27.6 (26.7-34.0) pg MCHC 30.9 (29.9-35.2) g/dL RDW 22.5 H (11.0-15.0) % Plt Count 292 (150-450) 10^3/uL MPV 9.4 L (9.5-13.5) fL Neut % (Auto) 76.2 H (43.0-75.0) % Lymph % (Auto) 11.8 L (20.5-60.0) % [place] % (Auto) 10.0 (1.7-12.0) % Eos % (Auto) 1.3 (0.9-7.0) % Baso % (Auto) 0.5 (0.2-2.0) % Neut # (Auto) 6.5 (1.4-6.5) 10^3/uL Lymph # (Auto) 1.0 L (1.2-3.8) 10^3/uL [place] # (Auto) 0.9 H (0.3-0.8) 10^3/uL Eos # (Auto) 0.1 (0.0-0.7) 10^3/uL Baso # (Auto) 0.0 (0.0-0.1) 10^3/uL Abs Immat Gran (auto) 0.02 (0.00-0.03) 10^3/uL Imm/Tot Granulo (auto) 0.2 (0.0-0.5) % PT 13.0 H (9.0-11.6) sec INR 1.25 APTT 28.4 (22.3-36.2) sec Sodium 138 (136-145) mmol/L Potassium 4.6 (3.5-5.1) mmol/L Chloride 105 (98-107) mmol/L Carbon Dioxide 27.7 (21.0-32.0) mmol/L Anion Gap 9.9 BUN 24.0 H (7.0-18.0) mg/dL Creatinine 1.42 H (0.55-1.02) mg/dL Est GFR ( Amer) 44 L (>=60 mL/min/1.73m^2) Est GFR (Non-Af Amer) 36 L (>=60 mL/min/1.73m^2) BUN/Creatinine Ratio 16.9 Glucose 272 H (74-106) mg/dL Lactate 2.9 H* (0.4-2.0) mmol/L Calcium 9.3 (8.5-10.1) mg/dL Imaging Data arterial duplex RLE: Attestation: I personally reviewed and interpreted this imaging study as follows: Discharge Plan Discharge Chief Complaint: Wound/Laceration Clinical Impression: PAD (peripheral artery disease) Patient Disposition: Home, Self-Care Time of Disposition Decision: 17:04 Condition: Fair Mode of Transportation: Private Vehicle Prescriptions / Home Meds: No Action omeprazole 40 mg capsule,delayed release(DR/EC) 40 mg PO DAILY meloxicam 15 mg tablet 15 mg PO DAILY allopurinol 300 mg tablet 300 mg PO DAILY baclofen 10 mg tablet 10 mg PO BID PRN (Reason: muscle spasm) calcium citrate-vitamin D3 315 mg-5 mcg (200 unit) tablet 1 tab PO BID aspirin [Adult Aspirin Regimen] 81 mg tablet,delayed release (DR/EC) 81 mg PO DAILY nitroglycerin 0.3 mg tablet, sublingual 0.3 mg sublingual Q5M PRN (Reason: chest pain) Rx Instructions: do not exceed 3 doses per episode spironolactone [Aldactone] 25 mg tablet 25 mg PO DAILY torsemide 20 mg tablet 20 mg PO DAILY Eliquis 5 mg tablet 5 mg PO Q12H Brilinta 90 mg tablet 90 mg PO Q12H ezetimibe 10 mg tablet 10 mg PO DAILY hydralazine 25 mg tablet 25 mg PO Q12H atorvastatin 80 mg tablet 80 mg PO QPM dapagliflozin propanediol [Farxiga] 5 mg tablet 5 mg PO DAILY sacubitril-valsartan 24-26 mg tablet 0.5 tab PO BID Print Language: Latvian Instructions: Peripheral Artery Disease (ED) Referrals: ABRAHAM REILLY [Primary Care Provider, Internal Medicine] - 1 week
== END 2025-03-15 17:23 | disposition home or self-care (01) ==
PROVIDERS: Emergency Provider Student in an Organized Health Care Education/Training Program; PCP Internal Medicine
DX: E11.51 Type 2 diabetes mellitus with diabetic peripheral angiopathy without gangrene (principal); Z79.4 Long term (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 of insulin; Z79.01 Long term (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 of anticoagulants; Z79.899 Other long term (current) drug therapy; Z95.810 Presence of automatic (implantable) cardiac defibrillator; I50.9 Heart failure, unspecified; I11.0 Hypertensive heart disease with heart failure
CPT/HCPCS: 36415; 80048; 83605; 85025; 85610; 85730; 93926; 99284

== ENCOUNTER 2025-04-19 13:13 | Outpatient (OUT) | payer MEDICARE, OTHER, SELFPAY ==
--- OUTSIDE RECORDS SUMMARY | 2025-04-11 09:30 | XMS_ITS | Encounter Summary ---
Author Organization [facility] Address [address] [place] [address] Care Team Providers Care Die Designer Name Role Phone Vlad Cesar MD Primary Care Provider [phone] Reason for Referral * Imaging (Routine) - Pending ReviewSpecialtyDiagnoses / ProceduresReferred By ContactReferred To ContactCardiology Diagnoses Nonhealing ulcer of heel (CMS/HCC) Procedures Vascular US lower extremity arterial duplex bilateral Rudy Zendejas MD [address] [place] [address] Phone: tel: fax: Referral IDStatusReasonStart DateExpiration DateVisits RequestedVisits [id number] Review Perform Procedure Encounter Details DateTypeDepartmentCare Team (Latest Contact Info)Emxatuhnssj33/03/2025 9:30 AM ESTOffice Visit [facility] [place] [address] [place] [address] Rudy Zendejas MD [address] [place] [address] Chronic systolic heart failure (CMS/HCC) (Primary Dx); Coronary artery disease involving spokane coronary artery of spokane heart without angina pectoris; Nonhealing ulcer of heel (CMS/HCC); Status post insertion of drug eluting coronary artery stent; Primary hypertension; PAF (paroxysmal atrial fibrillation) (CMS/HCC); Mixed hyperlipidemia; ICD (implantable cardioverter-defibrillator) in place Social History Tobacco UseTypesPacks/DayYears UsedDateSmoking Tobacco: NeverSmokeless Tobacco: NeverAlcohol UseStandard Drinks/WeekCommentsNot Currently0 (1 standard drink = 0.6 oz pure alcohol)[facility] UtilitiesAnswerDate RecordedIn the past 12 months has the [employer], oil, or water [employer] threatened to shut off services in your home?No04/21/2024Humiliation, Afraid, Rape, and Kick questionnaireAnswerDate RecordedWithin the last year, have you been afraid of your partner or ex-partner?No04/21/2024Emotionally AbusedNot on file04/21/2024hysically Abused Not on file04/21/2024Sexually AbusedNot on file04/21/2024Overall Financial Resource Strain (CARDIA)AnswerDate RecordedHow hard is it for you to pay for the very basics like food, housing, medical care, and heating?Not hard at all 04/21/2024UT Safety & EnvironmentAnswerDate RecordedWithin the last year, have you been afraid of your partner or ex-partner?No10/08/2023Emotionally AbusedNot on file10/08/2023hysically AbusedNot on file10/08/2023Sexually AbusedNot on file10/08/2023In the past year have you been physically or sexually abused? Unrecognized value10/08/2023TransportationAnswerDate RecordedIn the past 12 months, has lack of transportation kept you from medical appointments or from getting medications?No04/21/2024Lack of Transportation (Non-Medical)Not on file 04/21/2024Housing Stability Vital SignAnswerDate RecordedIn the last 12 months, was there a time when you were not able to pay the mortgage or rent on time?No 04/21/2024Number of Times Moved in the Last YearNot on file4At any time in the past 12 months, were you homeless or living in a senior living (including now)? No04/21/2024Hunger Vital SignAnswerDate RecordedWithin the past 12 months, you worried that your food would run out before you got the money to buymore.Never true4Ran Out of Food in the Last YearNot on file04/21/2024 CommentsNoSex and Gender InformationValueDate RecordedSex Assigned at Snydzj0009/09/2023 7:54 AM EDTLegal IrqAstunu51/29/2022 10:08 PM EDTGender XthijdtiMycjjo15/02/2024 7:54 AM EDTSexual OrientationHeterosexual or Straight 09/09/2023 7:54 AM EDTdocumented as of this encounter Last Filed Vital Signs Vital SignReadingTime TakenCommentsBlood Aktgrixw261/6404/11/2025 9:31 AM EST Rdrby290204/11/2025 9:31 AM ESTTemperature--Respiratory Rate--Oxygen Ehmayvpapq47% 04/11/2025 9:31 AM ESTInhaled Oxygen Concentration--Weight--Owdqpp686.5 cm (5' 2 )04/11/2025 9:31 AM ESTBody Mass Index--documented in this encounter Functional Status * BPAnswerDate of HabfszaxptMhrabv238/6404/11/2025 9:31 AM Vandana Johnson MA * PulseAnswerDate of LqzudatxuuXfocce6888/03/2025 9:31 AM Vandana Johnson MA * Patient PositionAnswerDate of ZbrrrebnkqNqxwxlGufnkjk20/03/2025 9:31 AM Vandana Aguillon MA * BPAnswerDate of AfrpfysyqyHgnuiy812/6404/11/2025 9:31 AM Vandana Johnson MA * PulseAnswerDate of MqkwwmpigmPdjfja7916/03/2025 9:31 AM Vandana Johnson MA * IeT7OfqvyxBnhq of MljkdxvmslOhkwwx4038/03/2025 9:31 AM Vandana Johnson MA * BP LocationAnswerDate of AssessmentAuthorLeft arm04/11/2025 9:31 AM Vandana Johnson MA * Patient PositionAnswerDate of YqmmaozkivVfytvbYpafhhw43/03/2025 9:31 AM Vandana Aguillon MA documented as of this encounter Progress Notes * Rudy Zendejas MD - 04/11/2025 9:30 AM EST Images from the original note were not included. [place] [facility] Subjective Macy Russ is a 74 y.o. year old female patient being seen for 1 month follow up chronic systolic heart failure, CAD, PAF, and hypertension. Spironolactone and torsemide were increased at lastmonth's visit. She was admitted last week to [facility] and torsemide was increased to 20mg bid upon discharge. Her friend says the [facility] (S[facility]) is taking care of her LE wound - not wound care anymore. Patient denies chest pain, SOB, palpitations, and lightheadedness. She has apt with neurosurgeon in [place] on 04/21/2025. Patient Active Problem List Diagnosis Allergic rhinitis Angiomyolipoma of kidney Benign essential hypertension Cerebrovascular disease Chronic foot ulcer (CMS/HCC) Coronary atherosclerosis Decreased estrogen level Diabetic retinopathy associated with type 2 diabetes mellitus ([facility]/HCC) Diaphragmatic hernia Difficulty walking Dyspnea on exertion Generalized osteoarthritis Gout History of arthritis History of hysterectomy Hyperglycemia due to type 2 diabetes mellitus (CMS/HCC) correction current use of insulin ([facility]/HCC) Low back pain Morbid obesity ([facility]/HCC) Neoplasm of uncertain behavior of kidney Obstructive sleep apnea syndrome Osteoarthritis of knee Osteoporosis Peripheral venous insufficiency Polyneuropathy due to type 2 diabetes mellitus ([facility]/HCC) Preoperative evaluation to rule out surgical contraindication Pulmonary function studies abnormal Pure hypercholesterolemia Renal mass Skin sensation disturbance Type 2 diabetes mellitus without complication Umbilical hernia Uric acid nephrolithiasis NSTEMI (non-ST elevated myocardial infarction) ([facility]/HCC) Acute exacerbation of CHF (congestive heart failure) ([facility]/HCC) COVID-19 Acquired spondylolisthesis Acute on chronic diastolic heart failure ([facility]/HCC) Coronary artery disease (CAD) excluded Diastolic dysfunction GERD (gastroesophageal reflux disease) History of carpal tunnel surgery of right wrist Hyperlipidemia Impaired mobility and endurance Localized edema Lumbar radiculopathy Morbid obesity with body mass index (BMI) of 45.0 to 49.9 in adult ([facility]) Paresthesia of skin Primary osteoarthritis of both knees S/P drug eluting coronary stent placement Ulcer of foot due to type 2 diabetes mellitus ([facility]/HCC) Pericardial effusion CAD in spokane artery Coronary artery disease Coronary artery disease involving spokane coronary artery of spokane heart with other form of angina pectoris Chronic systolic heart failure ([facility]/HCC) Combined forms of age-related cataract of both eyes History of lumbar fusion Nonexudative age-related macular degeneration Thyroid disease Angina pectoris Lumbar stenosis with neurogenic claudication Acquired absence of both cervix and uterus Acute cystitis without hematuria Carpal tunnel syndrome, left upper limb Cervicalgia Chronic kidney disease, stage 3a ([facility]/HCC) Cognitive communication deficit Dysphagia, oral phase History of DVT in adulthood Impaired skin integrity Mild mitral regurgitation Muscle weakness (generalized) Other chronic pain Pain in left knee Type 2 diabetes mellitus with diabetic chronic kidney disease ([facility]) Unspecified systolic (congestive) heart failure ([facility]) Cardiomyopathy ([facility]) Moderate nonproliferative diabetic retinopathy of both eyes without macular edema associated with type 2 diabetes mellitus ([facility]) Non compliance w medication regimen Ataxia Blister of right foot Cervical myelopathy ([facility]) Edema of both lower extremities Neuropathic pain Presence of automatic (implantable) cardiac defibrillator Presence of cardiac pacemaker Pressure injury of right buttock, stage 3 ([facility]) Primary osteoarthritis of left hip Sacroiliitis Trochanteric bursitis, right hip Ulcer of left heel ([facility]) Wound infection Family History Problem Relation Name Age of Onset JABARI disease Mother Heart attack Father Social History Tobacco Use Smoking status: Never Smokeless tobacco: Never Substance Use Topics Alcohol use: Not Currently Drug use: Never HPI Macy is seen in follow-up. She is a 74-year-old woman with prior history of coronary artery disease status post multivessel intervention in 2013 at which time she was deemed not a candidate for bypass surgery. She did well fora long time. Recently she was evaluated in cardiology clinic with NSTEMI and acute systolic heart failure. An echocardiogram showed significantly reduced systolic function. She had been admitted withdecompensated heart failure and elevated troponins. Eventually she [...] NSTEMI and underwent scoring balloon angioplasty to midLAD 90% in-stent restenosis. At that time the RCA stents were patent and the circumflex had stable diffuse disease. During that admission she developed Afib and was started on eliquis. She was also discharged on aspirin and brilinta. In addition colchicine was added due to recurrent ISR. On 07/07/2024 she was admitted to [facility] emergency room with chest pain and low bloodpressure. Her ECG was consistent with STEMI. She eventually was taken to the [facility] and underwentstent placement to the mid LAD. Echocardiogram showed [...] follow-up echocardiogram to assess her ventricular function. the echocardiogram July 2024 showed LVEF 30%. A follow-up echocardiogram in October 2024 showed LVEF 30 to 35%. I referred her to Dr. Gerardo Morris and she underwent ICD implantation. On subsequent follow-up in January 2025 she was also evaluated by Dr. Gerardo Morris due to device detected atrial fibrillation. She was started on amiodarone. At visit of 03/14/2025 she was having a lot of lower extremity edema. I increased torsemide to 20 mgonce daily. She also had ulcerations in the feet as well as in the ankle area. I wanted to perform ABIs but those could not be performed due to the excessive swelling and the ulcerations. since that visit she was admitted to [facility] on 03/29/2025 due to severe hip pain and was evaluated there. Blood testing showed renal function relatively at baseline. her torsemide was increased to 20 mg twice daily. today she reports that she has had no chest pain. She denies shortness of breath however she is notexerting herself too much. The bilateral lower extremity edema has improved significantly. However she still has ulcerations in her heels as well as above the ankles. She says she is currently at [facility] and they are doing wound care for her. Review of Systems Constitutional: Positive for malaise/fatigue. Skin: Positive for poor wound healing. Musculoskeletal: Positive for back pain, joint pain and muscle weakness. Neurological: Positive for weakness. All other systems reviewed and are negative. Objective Visit Vitals BP 120/64 (BP Location: Left arm, Patient Position: Sitting) Pulse 60 Ht 1.575 m (5' 2 ) SpO2 97% BMI 40.06 kg/m?? OB Status Postmenopausal Smoking Status Never BSA 2.08 m?? Physical Exam Constitutional: Appearance: She is well-developed. [...] lower le+ Pitting Edema present. Comments: In wheelchair. the feet and legs are wrapped in bandage. Skin: General: Skin is warm and dry. Neurological: General: No focal deficit present. Mental Status: She is alert and oriented to person, place, and time. Psychiatric: Mood and Affect: Mood normal. Behavior: Behavior is cooperative. Judgment: Judgment normal. Allergies Allergies Allergen Reactions Clindamycin Itching and Rash Penicillin Unknown Gabapentin Palpitations Other reaction(s): Chest Pain Tramadol Other Other reaction(s): sleeplessness Medications Current Outpatient Medications: allopurinol (Zyloprim) 300 mg tablet, Take 300 mg by mouth in the morning., Disp: , Rfl: amiodarone (Pacerone) 200 mg tablet, Take 2 tablets (400 mg) by mouth two times daily for 14 days, THEN 1 tablet (200 mg) in the morning. (Patient taking differently: 200mg daily), Disp: 146 tablet, Rfl: 0 apixaban (Eliquis) 5 mg tablet, Take 1 tablet (5 mg) by mouth two times daily., Disp: 180 tablet, Rfl: 3 atorvastatin (Lipitor) 80 mg tablet, Take 80 mg by mouth at bedtime., Disp: , Rfl: baclofen (Lioresal) 10 mg tablet, Take 10 mg by mouth at bedtime., Disp: , Rfl: dapagliflozin propanediol (Farxiga) 5 mg, Take 1 tablet (5 mg) by mouth in the morning., Disp: 90 tablet, Rfl: 3 ezetimibe (Zetia) 10 mg tablet, TAKE 1 TABLET BY MOUTH EVERY DAY IN THE MORNING, Disp: 90 tablet, Rfl: 3 insulin glargine-yfgn 100 unit/mL solution, Inject under the skin., Disp: , Rfl: insulin lispro (HumaLOG) 100 unit/mL injection, 5 Units with breakfast, with lunch, and with evening meal. Patient reports taking three times daily 15 minutes before meals. Sliding scale, Disp: , Rfl: meloxicam (Mobic) 15 mg tablet, Take 15 mg by mouth in the morning., Disp: , Rfl: metoprolol succinate XL (Toprol-XL) 25 mg 24 hr tablet, Take 0.5 tablets (12.5 mg) by mouth once daily as directed. Do not crush or chew., Disp: 45 tablet, Rfl: 3 omeprazole (PriLOSEC) [address] capsule, Take 20 mg by mouth before breakfast. (Patient taking differently: Take 40 mg by mouth before breakfast.), Disp: , Rfl: potassium chloride CR (K-Tab) 20 mEq ER tablet, Take 20 mEq by mouth in the morning., Disp: , Rfl: sacubitril-valsartan (Entresto) 24-26 mg tablet, Take 0.5 tablets by mouth two times daily., Disp: 90 tablet, Rfl: 3 spironolactone (Aldactone) 25 mg tablet, Take 1 tablet (25 mg) by mouth in the morning., Disp: 90 tablet, Rfl: 3 ticagrelor (Brilinta) 90 mg tablet, Take 1 tablet (90 mg) by mouth two times daily for 720 doses., Disp: 180 tablet, Rfl: 3 torsemide (Demadex) 20 mg tablet, Take 1 tablet (20 mg) by mouth in the morning. (Patient taking differently: Take 20 mg by mouth 2 times daily.), Disp: 90 tablet, Rfl: 3 levoFLOXacin (Levaquin) 750 mg tablet, Take 1 tablet by mouth in the morning. (Patient not taking: Reported on 04/11/2025), Disp: , Rfl: nitroglycerin (Nitrostat) 0.3 mg SL tablet, nitroglycerin 0.3 mg sublingual tablet (Patient not taking: Reported on 04/11/2025), Disp: , Rfl: pregabalin (Lyrica) 25 mg capsule, Take 25 mg by mouth two times daily. (Patient not taking: Reported on 04/11/2025), Disp: , Rfl: Toujeo Max U-300 SoloStar 300 unit/mL (3 mL) injection, Inject 100 Units under the skin in the morning. (Patient not taking: Reported on 04/11/2025), Disp: , Rfl: Recent Labs Lab Results [...] 83, LDL 39. Hemoglobin 12.9, platelets 259. Blood testing 12/20/2024: Potassium 4.1, BUN 25, creatinine 1.08, eGFR 50. NT proBNP 11,221 Blood testing 03/15/2025: Hemoglobin 12.3, platelets 292, potassium 4.6, BUN 24, creatinine 1.42, eGFR 36. Blood testing 03/29/2025: BUN 24, creatinine 1.48, potassium 3.9. Imaging and other tests Device interrogation 02/13/2025: THORACIC IMPEDANCE VALUES Within Normal Limits PACING PERCENTAGE RA pacing @ 90.0% RV pacing @ 18.0% Echocardiogram 10/20/2024: CONCLUSION: 1. The left ventricular is mildly dilated with moderately reduced systolic function. Estimated LVEF is 30 to 35%. 2. Mildly dilated right ventricle with reduced systolic function. 3. No significant valvular dysfunction. 4. Moderately elevated right-sided pressures, RVSP is 54 mmHg. Echocardiogram 07/28/2024: CONCLUSION: Mild concentric left ventricular [...] mitral regurgitation, mild to moderate left ventricular hypertrophy,left ventricle is moderately dilated, ejection fraction 20 to 25%. Akinetic mid to distal anterior wall, mid to distal anteroseptal segments, apex. Moderate to severe hypokinesis of the lateral wall.Diastolic dysfunction grade 2, left atrial volume is moderately increased. No significant valve stenosis or regurgitation. Trivial pericardial effusion. Cardiac catheterization/PCI 07/07/2024: Left main angiographically normal, LAD patent stent in proximal segment. Mid LAD 99% stenosis, apical LAD severe diffuse disease. Circumflex moderate ISR of midcircumflex. OM1 and OM 2 are less than 1 mm size vessels. OM 3 is occluded and fills via left to left collaterals. Distal left circumflex is occluded. A medium caliber left posterolateral branch alsofills via left to left and right to left collaterals. RCA patent mid segment stent. Mild to moderate ISR in distal RCA. LVEDP 18 mmHg. Mid LAD PCI: A 3 x 18 mm Xience jazzmine point drug-eluting stent wasdeployed at 14 kan and subsequently postdilated with a 3 x 12 mm NC balloon up to 24 kan. Echocardiogram 06/28/2024: CONCLUSION: 1. Mild concentric left [...] 3.5 x 28 mm drug eluting stent, post- dilated in the proximal segment and left main [...] Synergy XD 3.0 x 32 mm drug elutingstent, post dilated to 3.25 mm at high [...] 09/09/2023: Impression/Findings: Coronary angiogram shows severe three-vessel spokane coronary artery disease with a significant heavily [...] all orders for this visit: Chronic systolic heart failure (CMS/HCC) - Basic metabolic panel; Future Coronary artery disease involving spokane coronary artery of spokane heart without angina pectoris Nonhealing ulcer of heel (CMS/HCC) - Vascular US lower extremity arterial duplex bilateral; Future Status post insertion of drug eluting coronary artery stent Primary hypertension PAF (paroxysmal atrial fibrillation) (CMS/HCC) Mixed hyperlipidemia ICD (implantable cardioverter-defibrillator) in place CAD, status post multiple prior interventions, recent [...] to 20-25% after her anterior STEMI 07/07/2024. most recent ejection fraction in October 2024 was 30 to 35%. She is now status post ICD placement for primary prevention of sudden . Continue GDMT for systolic heart failure including spironolactone, Farxiga, metoprolol succinate and Entresto 24-26 mg half tablet twice daily.Her blood pressure would not tolerate higher dose at this time. Her lower extremity edema has responded to increasing torsemide and its currently at 20 mg twice daily. I am going to check a BMP in 2 weeks. I reviewed the results of the recent blood testing performed at [facility] that showed renal function at baseline. Hypertension: Blood pressure is well-controlled. Continue current medications. Paroxysmal atrial fibrillation: continue Eliquis. Continue amiodarone for rhythm control. Lower extremity heel ulcerations: Due to the presence of wounds around the ankle areas, ABIs cannotbe performed. I will check bilateral lower extremity arterial ultrasound. It is possible that she has significant PAD in addition diabetes has been uncontrolled with hemoglobin A1c close to 11 and this could be a major contributing factor. Continue current antibiotics as prescribed after recent hospitalization. I am recommending formal wound care to be performed. Currently at the [facility] she is getting some form of wound care. We are contacting the [facility] to investigate the appropriatenessof the treatment. Follow-up in 3 months Follow up in about 3 months (around 07/12/2025). Rudy Zendejas MD documented in this encounter Plan of Treatment NameTypePriorityAssociated DiagnosesOrder ScheduleVascular US lower extremity arterial duplex bilateralVascular UltrasoundRoutine Nonhealing ulcer of heel (CMS/HCC) Expected: 04/11/2025 (Approximate), Expires: 04/11/2027asic metabolic panelLab Routine Chronic systolic heart failure (CMS/HCC) Expected: 04/25/2025 (Approximate), Expires: 04/11/2026documented as of this encounter Visit Diagnoses Diagnosis Chronic systolic heart failure (CMS/HCC)- Primary Chronic systolic heart failure Coronary artery disease involving spokane coronary artery of spokane heart without angina pectoris Nonhealing ulcer of heel (CMS/HCC) Status post insertion of drug eluting coronary artery stent Primary hypertension Unspecified essential hypertension PAF (paroxysmal atrial fibrillation) (CMS/HCC) Atrial fibrillation Mixed hyperlipidemia ICD (implantable cardioverter-defibrillator) in place documented in this encounter Care Teams Team MemberMarylouhipSpecialtyStart DateEnd Date Vlad Cesar MD [address] [facility] [address] [place] [address] PCP - General08/19/22documented as of this encounter
--- OUTSIDE RECORDS SUMMARY | 2025-04-14 10:35 | XMS_ITS | Encounter Summary ---
Author Organization [facility] Address [address] [place] [address] Care Team Providers Care [facility] Cle[facility] Specialist Name Role Phone Vlad Cesar MD Primary Care Provider [phone] Encounter Details DateTypeDepartmentCare Team (Latest Contact Info)Lutisjcftvg24/06/2025 10:35 AM ESTAncillary Procedure [facility] [address] [place] [id number] Pre-operative cardiovascular examination, ICD in place Social History Tobacco UseTypesPacks/DayYears UsedDateSmoking Tobacco: NeverSmokeless Tobacco: NeverAlcohol UseStandard Drinks/WeekCommentsNot Currently0 (1 standard drink = 0.6 oz pure alcohol)[facility] UtilitiesAnswerDate RecordedIn the past 12 months has the electric, gas, oil, or water company threatened [...] Times Moved in the Last YearNot on file04/21/2024t any time in the past 12 months, were you homeless or living in a longterm (including now)? No04/21/2024Hunger Vital SignAnswerDate RecordedWithin the past 12 months, you worried that your food would run out before you got the money to buymore.Never true04/21/2024an Out of Food in the Last YearNot on file04/21/2024 CommentsNoSex and Gender InformationValueDate RecordedSex Assigned at Rkctku0709/09/2023 7:54 AM EDTLegal IowJnppeg04/29/2022 10:08 PM EDTGender GdxetvduWnimmb30/02/2024 7:54 AM EDTSexual OrientationHeterosexual or Straight 09/09/2023 7:54 AM EDTdocumented as of this encounter Plan of Treatment Not on file documented as of this encounter Procedures Procedure NamePriorityDate/TimeAssociated DiagnosisCommentsCARDIAC DEVICE CHECK CHECK - EIUYMINbtbxac42/10/2025 10:14 AM EST Pre-operative cardiovascular examination, ICD in place documented in this encounter Results * CARDIAC DEVICE CHECK - REMOTE - ICD (04/18/2025 10:14 AM EST)Specimen (Source) Anatomical Location / LateralityCollection Method / VolumeCollection Time Received Time Narrative Authorizing ProviderResult TypeResult StatusPaul Arturo MDCV IMPLANTABLE CARDIAC DEVICE PROCEDURESFinal ResultPerforming OrganizationAddressCity/State/ZIP Code Phone Number CPACS documented in this encounter Visit Diagnoses Diagnosis Pre-operative cardiovascular examination, ICD in place Pre-operative cardiovascular examination documented in this encounter Care Teams Team MemberRelationshipSpecialtyStart DateEnd Date Vlad Cesar MD [address] [facility] [address] [place] [address] PCP - General08/19/22documented as of this encounter
--- OUTSIDE RECORDS SUMMARY | 2025-04-15 11:05 | XMS_ITS | Encounter Summary ---
Author Organization [facility] Address [address] [place] [address] Care Team Providers Care Email Production Consultant Name Role Phone Vlad Cesar MD Primary Care Provider [phone] Encounter Details DateTypeDepartmentCare Team (Latest Contact Info)Vyzmntkhjme41/07/2025 11:05 AM ESTAncillary Procedure [facility] [address] [place] [id number] Pre-operative cardiovascular examination, ICD in place Social History Tobacco UseTypesPacks/DayYears UsedDateSmoking Tobacco: NeverSmokeless Tobacco: NeverAlcohol UseStandard Drinks/WeekCommentsNot Currently0 (1 standard drink = 0.6 oz pure alcohol)[facility] UtilitiesAnswerDate RecordedIn the past 12 months has [...] or living in a penitentiary (including now)? No04/21/2024Hunger Vital SignAnswerDate RecordedWithin the past 12 months, you worried that your food would run out before you got the money to buymore.Never true04/21/2024an Out of Food in the Last YearNot on file04/21/2024 CommentsNoSex and Gender InformationValueDate RecordedSex Assigned at Jryrjm2409/09/2023 7:54 AM EDTLegal CdtFhcakg56/29/2022 10:08 PM EDTGender FdvlfpboVbqbfk88/02/2024 7:54 AM EDTSexual OrientationHeterosexual or Straight 09/09/2023 7:54 AM EDTdocumented as of this encounter Plan of Treatment Not on file documented as of this encounter Procedures Procedure NamePriorityDate/TimeAssociated DiagnosisCommentsCARDIAC DEVICE CHECK CHECK - MIOMERPammvfh96/10/2025 10:40 AM EST Pre-operative cardiovascular examination, ICD in place documented in this encounter Results * CARDIAC DEVICE CHECK - REMOTE - ICD (04/18/2025 10:40 AM EST)Specimen (Source) Anatomical Location / LateralityCollection Method / VolumeCollection Time Received Time Narrative Authorizing ProviderResult TypeResult StatusPaul Arturo MDCV IMPLANTABLE CARDIAC DEVICE PROCEDURESFinal ResultPerforming OrganizationAddressCity/State/ZIP Code Phone Number CPACS documented in this encounter Visit Diagnoses Diagnosis Pre-operative cardiovascular examination, ICD in place Pre-operative cardiovascular examination documented in this encounter Care Teams Team MemberRelationshipSpecialtyStart DateEnd Date Vlad Cesar MD [address] [facility] [address] [place] [address] PCP - General08/19/22documented as of this encounter
--- OUTSIDE RECORDS SUMMARY | 2025-04-19 13:16 | XMS_ITS | Encounter Summary ---
Author Organization [facility] Address [address] [place] [address] Care Team Providers Care Payable Processor Name Role Phone Vlad Cesar MD Primary Care Provider [phone] Vlad Cesar MD Unavailable [phone] Karine Foote LPN Unavailable Reason for Visit * ReasonCommentsMed Refill Encounter Details DateTypeDepartmentCare Team (Latest Contact Info)Irzmnapprrp48/07/2025Ref[facility] [address] [facility] [address] [place] [address] Vlad Cesar MD 112 [facility] [address] [place], [place] [id number] Gastroesophageal reflux disease, unspecified whether esophagitis present Social History Tobacco UseTypesPacks/DayYears UsedDateSmoking Tobacco: NeverSmokeless Tobacco: NeverAlcohol UseStandard Drinks/WeekCommentsNever0 (1 standard drink = 0.6 oz pure alcohol)Caffeine: 1-2 cups per [id number] Health LiteracyAnswerDate Recorded How often do you need to have someone help you when you read instructions, pamphlets, or other written material from your doctor or pharmacy?Never 02/23/2024Humiliation, Afraid, Rape, and Kick questionnaireAnswerDate Recorded Within the last year, have you been afraid of your partner or ex-partner?No 01/12/2023Within the last year, have you been humiliated or emotionally abused in other ways by your partner or ex-partner?No01/12/2023Within the last year, have you been kicked, hit, slapped, or otherwise physically hurt by your partner or ex-partner?No01/12/2023Within the last year, have you been raped or forced to have any kind of sexual activity by your partner or ex-partner?No01/12/2023 Social Connection and Isolation PanelAnswerDate RecordedIn a typical week, how many times do you talk on the phone with family, friends, or neighbors?More than three times a week02/23/2024How often do you get together with friends or relatives?Once a week02/23/2024How often do you attend buddhism or baptism services?Never02/23/2024o you belong to any clubs or organizations such as buddhism groups, unions, fraternal or athletic groups, or school groups?Yes 02/23/2024How often do you attend meetings of the clubs or organizations you belong to?1 to 4 times per year02/23/2024re you , , , , never , or living with a partner?Never tjqmcoe2602/23/2024 AUDIT-CAnswerDate RecordedQ1: How often do you have a drink containing alcohol? Never02/23/2024Q2: How many drinks containing alcohol do you have on a typical day when you are drinking?Patient does not drink02/23/2024Q3: How often do you have six or more drinks on one occasion?Never02/23/2024Overall Financial Resource Strain (CARDIA)AnswerDate RecordedHow hard is it for you to pay for the very basics like food, housing, medical care, and heating?Not hard at all 02/23/2024HQ-2AnswerDate RecordedPatient Health Questionnaire-2 Score0 12/31/2024[facility] [place] [facility] - Occupational Stress QuestionnaireAnswerDate RecordedDo you feel stress - tense, restless, nervous, or anxious, or unable to sleep at night because yourmind is troubled all the time - these days?Not at all02/23/2024Exercise Vital SignAnswerDate RecordedOn average, how many days per week do you engage in moderate to strenuous exercise (like a brisk walk)?0 days02/23/2024On average, how many minutes do you engage in exercise at this level?0 min02/23/2024Hunger Vital SignAnswerDate Recorded Within the past 12 months, you worried that your food would run out before you got the money to buymore.Never true02/23/2024Within the past 12 months, the food you bought just didn't last and you didn't have money to get more.Never true 02/23/2024RAPARE - TransportationAnswerDate RecordedIn the past 12 months, has lack of transportation kept you from medical appointments or from getting medications?No02/23/2024In the past 12 months, has lack of transportation kept you from meetings, work, or from getting things needed for daily living?No 02/23/2024Housing Stability Vital SignAnswerDate RecordedIn the last 12 months, was there a time when you were not able to pay the mortgage or rent on time?No 01/12/2023Number of Places Lived in the Last YearNot on file01/12/2023In the last 12 months, was there a time when you did not have a steady place to sleep or slept in [facility] (including now)?No01/12/2023Housing Stability Vital Sign AnswerDate RecordedIn the last 12 months, was there a time when you were not able to pay the mortgage or rent on time?No02/23/2024Number of Times Moved in the Last YearNot on file02/23/2024t any time in the past 12 months, were you homeless or living in a [facility] (including now)?No02/23/2024Comments UnknownSex and Gender InformationValueDate RecordedSex Assigned at BirthNot on fileLegal IbtCejgek36/15/2023 6:47 PM EDTGender IdentityNot on fileSexual OrientationNot on filedocumented as of this encounter Miscellaneous Notes * Telephone Encounter - HOLLEY White - 04/16/2025 1:33 PM EST Omeprazole sent. documented in this encounter Plan of Treatment Not on file documented as of this encounter Visit Diagnoses Diagnosis Gastroesophageal reflux disease, unspecified whether esophagitis present documented in this encounter Care Teams Team MemberRelationshipSpecialtyStart DateEnd Date Vlad Cesar MD [address] [address] PCP - GeneralInternal Medicine10/21/22 Vlad Cesar MD [address] [facility] [address] [place] [address] PCP - ACO Reach10/31/22 Karine Foote LPN [address] [facility] [address] [place] [address] 12/23/24documented as of this encounter
--- OUTSIDE RECORDS SUMMARY | 2025-04-19 13:16 | XMS_ITS | Continuity of Care Document ---
Author Organization [facility] Address [address] [place] [address] Insurance Providers Payer Plan Claims Address Claims Phone Policy Number Group Number Relation Employer Guarantor Name Guarantor Guarantor Address Guarantor Phone [employer] [facility] [address], [place] [address] tel: PLAN F [id number] MEDICAREMEDICAREtel:tel:[phone] Rehab-IP Part AMedicare Rehab-IP Part [id number] Problems Condition ICD9 code ICD10 code SNOMED code Start Date End Date S tatus Acute cystitis without hematuria N30.5ActiveType 2 diabetes mellitus with diabetic chronic kidney zdbdlhiT71.2205ActiveEssential (primary) ashstwbzeylvE91295Active Pure hypercholesterolemia, frercqupqeyN99.5ActiveAtherosclerotic heart disease of [place] coronary artery without angina tkxyqlqkN93.10006/14/2024 ActiveGastro-esophageal reflux disease without iqdbuthnkiqB49.905Active Gout, zsylhoamednT54.905ActiveChronic kidney disease, stage 3aN18.31 5ActivePresence of coronary angioplasty implant and jpbxqS59.5 5ActiveAcquired absence of both cervix and xbayqzW00.5139406/14/2024 ActiveLong term (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 of cqofhhoK78.4015ActiveSleep apnea, hexgcmaurhlF46.3005ActiveDifficulty in walking, not elsewhere classified R26.5ActiveType 2 diabetes mellitus with foot yftreJ81.95583 ActivePain in right hipM25.323025ActivePressure ulcer of right buttock, stage 3L89.995805ActiveMorbid (severe) obesity due to excess calories E66.01105ActivePeripheral vascular disease, dpayvgpisfqQ44.91 ActiveDiaphragmatic hernia without obstruction or coiapdijD89.9105Active Unspecified osteoarthritis, unspecified siteM19.90105ActivePresence of cardiac iqedovxuxU35.0105ActivePresence of automatic (implantable) cardiac fbhuubhjujefpY02.107005ActiveGeneralized mhadrL39.110 Active Results Test Result Date/Time Value / Unit Interp. Refere nce Range Blood chemistry[[id number]] Glucose [Mass/volume] in Serum or Plasma [2345-7] 08/02/2024 11:27 AM 81 mg/dL N Blood chemistry[[id number]]?Glucose [Mass/volume] in Serum or Plasma [2345-7]08/01/2024 02:49 PM128 mg/dLNBlood chemistry[[id number]]?Glucose [Mass/volume] in Serum or Plasma [2345-7]08/01/2024 09:22 AM134 mg/dLNBlood chemistry[[id number]]?Glucose [Mass/volume] in Serum or Plasma [2345-7] 08/01/2024 03:48 PM149 mg/dLNBlood chemistry[[id number]]?Glucose [Mass/volume] in Serum or Plasma [2345-7]08/01/2024 11:22 AM110 mg/dLNBlood chemistry[[id number]]?Glucose [Mass/volume] in Serum or Plasma [2345-7] 07/31/2024 02:48 PM155 mg/dLNBlood chemistry[[id number]]?Glucose [Mass/volume] in Serum or Plasma [2345-7]07/31/2024 09:29 AM86 mg/dLNBlood chemistry[[id number]]?Glucose [Mass/volume] in Serum or Plasma [2345-7] 07/31/2024 04:21 PM135 mg/dLNBlood chemistry[[id number]]?Glucose [Mass/volume] in Serum or Plasma [2345-7]07/31/2024 09:04 AM133 mg/dLNBlood chemistry[[id number]]?Glucose [Mass/volume] in Serum or Plasma [2345-7] 07/30/2024 01:45 PM175 mg/dLNBlood chemistry[[id number]]?Glucose [Mass/volume] in Serum or Plasma [2345-7]07/30/2024 08:59 AM153 mg/dLNBlood chemistry[[id number]]?Glucose [Mass/volume] in Serum or Plasma [2345-7] 07/30/2024 03:42 PM76 mg/dLNBlood chemistry[[id number]]?Glucose [Mass/volume] in Serum or Plasma [2345-7]07/30/2024 10:06 AM146 mg/dLNBlood chemistry[[id number]]?Glucose [Mass/volume] in Serum or Plasma [2345-7] 07/29/2024 02:05 PM203 mg/dLNBlood chemistry[[id number]]?Glucose [Mass/volume] in Serum or Plasma [2345-7]07/29/2024 03:48 PM162 mg/dLNBlood chemistry[[id number]]?Glucose [Mass/volume] in Serum or Plasma [2345-7] 07/29/2024 08:47 AM268 mg/dLNBlood chemistry[[id number]]?Glucose [Mass/volume] in Serum or Plasma [2345-7]07/29/2024 10:52 AM113 mg/dLNBlood chemistry[[id number]]?Glucose [Mass/volume] in Serum or Plasma [2345-7] 07/28/2024 02:39 PM109 mg/dLNBlood chemistry[[id number]]?Glucose [Mass/volume] in Serum or Plasma [2345-7]07/28/2024 04:19 PM201 mg/dLNBlood chemistry[[id number]]?Glucose [Mass/volume] in Serum or Plasma [2345-7] 07/28/2024 09:16 AM247 mg/dLNBlood chemistry[[id number]]?Glucose [Mass/volume] in Serum or Plasma [[facility]]07/28/2024 11:05 AM101 mg/dLNBlood chemistry[[id number]]?Glucose [Mass/volume] in Serum or Plasma [2345-7] 07/27/2024 02:34 PM123 mg/dLNBlood chemistry[[id number]]?Glucose [Mass/volume] in Serum or Plasma [2345-7]07/27/2024 04:57 PM195 mg/dLNBlood chemistry[[id number]]?Glucose [Mass/volume] in Serum or Plasma [2345-7] 07/27/2024 10:51 AM148 mg/dLNBlood chemistry[[id number]]?Glucose [Mass/volume] in Serum or Plasma [2345-7]07/27/2024 09:06 AM136 mg/dLNBlood chemistry[[id number]]?Glucose [Mass/volume] in Serum or Plasma [2345-7] 07/26/2024 03:50 PM133 mg/dLNBlood chemistry[[id number]]?Glucose [Mass/volume] in Serum or Plasma [2345-7]07/26/2024 09:58 AM191 mg/dLNBlood chemistry[[id number]]?Glucose [Mass/volume] in Serum or Plasma [2345-7] 07/26/2024 04:26 PM182 mg/dLNBlood chemistry[[id number]]?Glucose [Mass/volume] in Serum or Plasma [2345-7]07/26/2024 08:35 AM151 mg/dLNBlood chemistry[[id number]]?Glucose [Mass/volume] in Serum or Plasma [2345-7] 07/25/2024 12:35 PM185 mg/dLNBlood chemistry[[id number]]?Glucose [Mass/volume] in Serum or Plasma [2345-7]07/25/2024 08:55 AM160 mg/dLNBlood chemistry[[id number]]?Glucose [Mass/volume] in Serum or Plasma [2345-7] 07/25/2024 03:51 PM194 mg/dLNBlood chemistry[[id number]]?Glucose [Mass/volume] in Serum or Plasma [2345-7]07/25/2024 09:46 AM131 mg/dLNBlood chemistry[[id number]]?Glucose [Mass/volume] in Serum or Plasma [2345-7] 07/24/2024 01:54 PM178 mg/dLNBlood chemistry[[id number]]?Glucose [Mass/volume] in Serum or Plasma [2345-7]07/24/2024 08:36 AM188 mg/dLNBlood chemistry[[id number]]?Glucose [Mass/volume] in Serum or Plasma [2345-7] 07/24/2024 03:52 PM185 mg/dLNBlood chemistry[[id number]]?Glucose [Mass/volume] in Serum or Plasma [[facility]]07/24/2024 09:28 AM176 mg/dLNBlood chemistry[[id number]]?Glucose [Mass/volume] in Serum or Plasma [2345-7] 07/23/2024 02:21 PM172 mg/dLNBlood chemistry[[id number]]?Glucose [Mass/volume] in Serum or Plasma [[facility]]07/23/2024 05:23 PM217 mg/dLNBlood chemistry[[id number]]?Glucose [Mass/volume] in Serum or Plasma [[facility]] 07/23/2024 10:48 AM166 mg/dLNBlood chemistry[[id number]]?Glucose [Mass/volume] in Serum or Plasma [[facility]]07/23/2024 11:38 AM95 mg/dLNBlood chemistry[[id number]]?Glucose [Mass/volume] in Serum or Plasma [[facility]] 07/22/2024 02:13 PM155 mg/dLNBlood chemistry[[id number]]?Glucose [Mass/volume] in Serum or Plasma [[facility]]07/22/2024 09:56 AM129 mg/dLNBlood chemistry[[id number]]?Glucose [Mass/volume] in Serum or Plasma [[facility]] 07/22/2024 04:49 PM126 mg/dLNBlood chemistry[[id number]]?Glucose [Mass/volume] in Serum or Plasma [2345-7]07/22/2024 11:31 AM91 mg/dLNBlood chemistry[[id number]]?Glucose [Mass/volume] in Serum or Plasma [2345-7] 07/21/2024 01:38 PM181 mg/dLNBlood chemistry[[id number]]?Glucose [Mass/volume] in Serum or Plasma [2345-7]07/21/2024 09:08 AM157 mg/dLNBlood chemistry[[id number]]?Glucose [Mass/volume] in Serum or Plasma [2345-7] 07/21/2024 03:58 PM146 mg/dLNBlood chemistry[[id number]]?Glucose [Mass/volume] in Serum or Plasma [2345-7]07/21/2024 10:58 AM80 mg/dLNBlood chemistry[[id number]]?Glucose [Mass/volume] in Serum or Plasma [2345-7] 07/20/2024 03:47 PM151 mg/dLNBlood chemistry[[id number]]?Glucose [Mass/volume] in Serum or Plasma [2345-7]07/20/2024 01:00 PM165 mg/dLNBlood chemistry[[id number]]?Glucose [Mass/volume] in Serum or Plasma [2345-7] 07/20/2024 08:46 AM196 mg/dLNBlood chemistry[[id number]]?Glucose [Mass/volume] in Serum or Plasma [2345-7]07/20/2024 09:35 AM112 mg/dLNBlood chemistry[[id number]]?Glucose [Mass/volume] in Serum or Plasma [2345-7] 07/19/2024 01:38 PM210 mg/dLNBlood chemistry[[id number]]?Glucose [Mass/volume] in Serum or Plasma [2345-7]07/19/2024 08:48 AM208 mg/dLNBlood chemistry[[id number]]?Glucose [Mass/volume] in Serum or Plasma [2345-7] 07/19/2024 11:08 AM88 mg/dLNBlood chemistry[[id number]]?Glucose [Mass/volume] in Serum or Plasma [2345-7]07/18/2024 04:51 PM84 mg/dLNBlood chemistry[[id number]]?Glucose [Mass/volume] in Serum or Plasma [2345-7] 07/18/2024 09:37 AM115 mg/dLNBlood chemistry[[id number]]?Glucose [Mass/volume] in Serum or Plasma [2345-7]07/18/2024 04:58 PM135 mg/dLNBlood chemistry[[id number]]?Glucose [Mass/volume] in Serum or Plasma [2345-7] 07/18/2024 05:13 PM91 mg/dLNBlood chemistry[[id number]]?Glucose [Mass/volume] in Serum or Plasma [[facility]]07/18/2024 11:10 AM80 mg/dLNBlood chemistry[[id number]]?Glucose [Mass/volume] in Serum or Plasma [[facility]] 07/17/2024 09:47 AM117 mg/dLNBlood chemistry[[id number]]?Glucose [Mass/volume] in Serum or Plasma [[facility]]07/17/2024 04:38 PM122 mg/dLNBlood chemistry[[id number]]?Glucose [Mass/volume] in Serum or Plasma [2345-7] 07/17/2024 09:14 AM136 mg/dLNBlood chemistry[[id number]]?Glucose [Mass/volume] in Serum or Plasma [2345-7]07/16/2024 04:04 PM91 mg/dLNBlood chemistry[[id number]]?Glucose [Mass/volume] in Serum or Plasma [2345-7] 07/16/2024 01:57 PM120 mg/dLNBlood chemistry[[id number]]?Glucose [Mass/volume] in Serum or Plasma [2345-7]07/16/2024 08:58 AM80 mg/dLNBlood chemistry[[id number]]?Glucose [Mass/volume] in Serum or Plasma [2345-7] 07/16/2024 11:10 AM84 mg/dLNBlood chemistry[[id number]]?Glucose [Mass/volume] in Serum or Plasma [[facility]]07/15/2024 03:58 PM103 mg/dLNBlood chemistry[[id number]]?Glucose [Mass/volume] in Serum or Plasma [[facility]] 07/15/2024 01:21 PM105 mg/dLNBlood chemistry[[id number]]?Glucose [Mass/volume] in Serum or Plasma [[facility]]07/15/2024 08:53 AM106 mg/dLNBlood chemistry[[id number]]?Glucose [Mass/volume] in Serum or Plasma [[facility]] 07/15/2024 11:13 AM86 mg/dLNBlood chemistry[[id number]]?Glucose [Mass/volume] in Serum or Plasma [[facility]]07/14/2024 04:17 PM148 mg/dLNBlood chemistry[[id number]]?Glucose [Mass/volume] in Serum or Plasma [[facility]] 07/14/2024 02:51 PM201 mg/dLNBlood chemistry[[id number]]?Glucose [Mass/volume] in Serum or Plasma [[facility]]07/14/2024 09:38 AM146 mg/dLNBlood chemistry[[id number]]?Glucose [Mass/volume] in Serum or Plasma [[facility]] 07/14/2024 10:33 AM100 mg/dLNBlood chemistry[[id number]]?Glucose [Mass/volume] in Serum or Plasma [2345-7]07/13/2024 04:42 PM163 mg/dLNBlood chemistry[[id number]]?Glucose [Mass/volume] in Serum or Plasma [2345-7] 07/13/2024 05:00 PM163 mg/dLNBlood chemistry[[id number]]?Glucose [Mass/volume] in Serum or Plasma [2345-7]07/13/2024 10:07 AM110 mg/dLNBlood chemistry[[id number]]?Glucose [Mass/volume] in Serum or Plasma [2345-7] 07/13/2024 09:46 AM154 mg/dLNBlood chemistry[[id number]]?Glucose [Mass/volume] in Serum or Plasma [[facility]]07/12/2024 02:58 PM170 mg/dLNBlood chemistry[[id number]]?Glucose [Mass/volume] in Serum or Plasma [2345-7] 07/12/2024 09:35 AM147 mg/dLNBlood chemistry[[id number]]?Glucose [Mass/volume] in Serum or Plasma [2345-7]07/12/2024 05:02 PM219 mg/dLNBlood chemistry[[id number]]?Glucose [Mass/volume] in Serum or Plasma [2345-7] 07/12/2024 10:38 AM135 mg/dLNBlood chemistry[[id number]]?Glucose [Mass/volume] in Serum or Plasma [2345-7]07/11/2024 02:17 PM186 mg/dLNBlood chemistry[[id number]]?Glucose [Mass/volume] in Serum or Plasma [2345-7] 07/11/2024 09:04 AM261 mg/dLNBlood chemistry[[id number]]?Glucose [Mass/volume] in Serum or Plasma [2345-7]07/11/2024 03:51 PM135 mg/dLNBlood chemistry[[id number]]?Glucose [Mass/volume] in Serum or Plasma [2345-7] 07/11/2024 11:13 AM130 mg/dLNBlood chemistry[[id number]]?Glucose [Mass/volume] in Serum or Plasma [2345-7]07/10/2024 02:34 PM169 mg/dLNBlood chemistry[[id number]]?Glucose [Mass/volume] in Serum or Plasma [2345-7] 07/10/2024 03:59 PM194 mg/dLNBlood chemistry[[id number]]?Glucose [Mass/volume] in Serum or Plasma [[facility]]07/10/2024 09:13 AM168 mg/dLNBlood chemistry[[id number]]?Glucose [Mass/volume] in Serum or Plasma [2345-7] 07/10/2024 10:49 AM112 mg/dLNBlood chemistry[[id number]]?Glucose [Mass/volume] in Serum or Plasma [2345-7]07/09/2024 04:39 PM159 mg/dLNBlood chemistry[[id number]]?Glucose [Mass/volume] in Serum or Plasma [2345-7] 07/07/2024 04:35 PM184 mg/dLNBlood chemistry[[id number]]?Glucose [Mass/volume] in Serum or Plasma [2345-7]07/07/2024 10:36 AM155 mg/dLNBlood chemistry[[id number]]?Glucose [Mass/volume] in Serum or Plasma [2345-7] 07/06/2024 03:57 PM184 mg/dLNBlood chemistry[[id number]]?Glucose [Mass/volume] in Serum or Plasma [2345-7]07/06/2024 03:50 PM277 mg/dLNBlood chemistry[[id number]]?Glucose [Mass/volume] in Serum or Plasma [2345-7] 07/06/2024 08:52 AM260 mg/dLNBlood chemistry[[id number]]?Glucose [Mass/volume] in Serum or Plasma [2345-7]07/06/2024 09:41 AM148 mg/dLNBlood chemistry[[id number]]?Glucose [Mass/volume] in Serum or Plasma [[facility]] 07/05/2024 03:54 PM277 mg/dLNBlood chemistry[[id number]]?Glucose [Mass/volume] in Serum or Plasma [[facility]]07/05/2024 02:05 PM186 mg/dLNBlood chemistry[[id number]]?Glucose [Mass/volume] in Serum or Plasma [[facility]] 07/05/2024 08:46 AM282 mg/dLNBlood chemistry[[id number]]?Glucose [Mass/volume] in Serum or Plasma [[facility]]07/05/2024 10:43 AM161 mg/dLNBlood chemistry[[id number]]?Glucose [Mass/volume] in Serum or Plasma [[facility]] 07/04/2024 03:37 PM182 mg/dLNBlood chemistry[[id number]]?Glucose [Mass/volume] in Serum or Plasma [2345-7]07/04/2024 09:48 AM240 mg/dLNBlood chemistry[[id number]]?Glucose [Mass/volume] in Serum or Plasma [2345-7] 07/04/2024 04:41 PM193 mg/dLNBlood chemistry[[id number]]?Glucose [Mass/volume] in Serum or Plasma [2345-7]07/04/2024 10:08 AM159 mg/dLNBlood chemistry[[id number]]?Glucose [Mass/volume] in Serum or Plasma [2345-7] 07/03/2024 04:08 PM171 mg/dLNBlood chemistry[[id number]]?Glucose [Mass/volume] in Serum or Plasma [2345-7]07/03/2024 09:36 AM176 mg/dLNBlood chemistry[[id number]]?Glucose [Mass/volume] in Serum or Plasma [2345-7] 07/03/2024 05:26 PM238 mg/dLNBlood chemistry[[id number]]?Glucose [Mass/volume] in Serum or Plasma [2345-7]07/03/2024 10:07 AM204 mg/dLNBlood chemistry[[id number]]?Glucose [Mass/volume] in Serum or Plasma [2345-7] 07/02/2024 01:54 PM277 mg/dLNBlood chemistry[[id number]]?Glucose [Mass/volume] in Serum or Plasma [2345-7]07/02/2024 08:59 AM222 mg/dLNCOVID-19 Test Viral Antigennull flavor [null]07/02/2024 05:00 PMSee noteNEGCOVID-19 Test Viral AntigenBlood chemistry[[id number]]?Glucose [Mass/volume] in Serum or Plasma [2345-7]07/02/2024 03:55 PM188 mg/dLNBlood chemistry[[id number]]?Glucose [Mass/volume] in Serum or Plasma [2345-7] 07/02/2024 09:55 AM175 mg/dLNBlood chemistry[[id number]]?Glucose [Mass/volume] in Serum or Plasma [2345-7]07/01/2024 02:32 PM204 mg/dLNBlood chemistry[[id number]]?Glucose [Mass/volume] in Serum or Plasma [2345-7] 07/01/2024 04:01 PM221 mg/dLNBlood chemistry[[id number]]?Glucose [Mass/volume] in Serum or Plasma [2345-7]07/01/2024 08:47 AM285 mg/dLNBlood chemistry[[id number]]?Glucose [Mass/volume] in Serum or Plasma [2345-7] 07/01/2024 10:08 AM199 mg/dLNBlood chemistry[[id number]]?Glucose [Mass/volume] in Serum or Plasma [2345-7]06/30/2024 03:02 PM213 mg/dLNCOVID-19 Test Viral Antigennull flavor [null]06/30/2024 05:00 PMSee noteNEGCOVID-19 Test Viral AntigenBlood chemistry[[id number]]?Glucose [Mass/volume] in Serum or Plasma [2345-7]06/30/2024 04:06 PM194 mg/dLNBlood chemistry[[id number]]?Glucose [Mass/volume] in Serum or Plasma [2345-7] 06/30/2024 08:59 AM345 mg/dLNBlood chemistry[[id number]]?Glucose [Mass/volume] in Serum or Plasma [2345-7]06/30/2024 10:21 AM124 mg/dLNBlood chemistry[[id number]]?Glucose [Mass/volume] in Serum or Plasma [2345-7] 06/29/2024 03:54 PM209 mg/dLNBlood chemistry[[id number]]?Glucose [Mass/volume] in Serum or Plasma [2345-7]06/29/2024 01:13 PM172 mg/dLNBlood chemistry[[id number]]?Glucose [Mass/volume] in Serum or Plasma [2345-7] 06/29/2024 09:15 AM208 mg/dLNBlood chemistry[[id number]]?Glucose [Mass/volume] in Serum or Plasma [2345-7]06/29/2024 11:52 AM150 mg/dLNCOVID-19 Test Viral Antigennull flavor [null]06/28/2024 05:00 PMSee noteNEGCOVID-19 Test Viral AntigenBlood chemistry[[id number]]?Glucose [Mass/volume] in Serum or Plasma [5-7]06/28/2024 04:23 PM196 mg/dLNBlood chemistry[[id number]]?Glucose [Mass/volume] in Serum or Plasma [5-7] 06/28/2024 02:37 PM193 mg/dLNBlood chemistry[[id number]]?Glucose [Mass/volume] in Serum or Plasma [5-7]06/28/2024 09:50 AM182 mg/dLN Tuberculosis reaction wheal[18465-7]?Tuberculosis reaction wheal [85854-4]06/25/2024 07:35 AM0 mmNEGBlood chemistry[[id number]]?Glucose [Mass/volume] in Serum or Plasma [2345-7]06/28/2024 10:55 AM132 mg/dLNBlood chemistry[[id number]]?Glucose [Mass/volume] in Serum or Plasma [2345-7] 06/27/2024 02:00 PM213 mg/dLNBlood chemistry[[id number]]?Glucose [Mass/volume] in Serum or Plasma [2345-7]06/27/2024 08:54 AM300 mg/dLNBlood chemistry[[id number]]?Glucose [Mass/volume] in Serum or Plasma [2345-7] 06/27/2024 03:54 PM289 mg/dLNBlood chemistry[[id number]]?Glucose [Mass/volume] in Serum or Plasma [2345-7]06/27/2024 10:30 AM210 mg/dLNCOVID-19 Test Viral Antigennull flavor [null]06/26/2024 05:00 PMSee noteNEGCOVID-19 Test Viral AntigenBlood chemistry[[id number]]?Glucose [Mass/volume] in Serum or Plasma [2345-7]06/26/2024 02:12 PM274 mg/dLNBlood chemistry[[id number]]?Glucose [Mass/volume] in Serum or Plasma [2345-7] 06/26/2024 08:38 AM256 mg/dLNBlood chemistry[[id number]]?Glucose [Mass/volume] in Serum or Plasma [2345-7]06/26/2024 03:58 PM207 mg/dLNBlood chemistry[[id number]]?Glucose [Mass/volume] in Serum or Plasma [2345-7] 06/26/2024 10:09 AM123 mg/dLNBlood chemistry[[id number]]?Glucose [Mass/volume] in Serum or Plasma [2345-7]06/25/2024 04:21 PM221 mg/dLNBlood chemistry[[id number]]?Glucose [Mass/volume] in Serum or Plasma [2345-7] 06/25/2024 09:56 AM140 mg/dLNTuberculosis reaction wheal[48493-6]? Tuberculosis reaction wheal [72789-0]06/25/2024 07:35 AMSee noteTB testBlood chemistry[[id number]]?Glucose [Mass/volume] in Serum or Plasma [2345-7] 06/25/2024 04:27 PM136 mg/dLNBlood chemistry[[id number]]?Glucose [Mass/volume] in Serum or Plasma [2345-7]06/25/2024 10:04 AM116 mg/dLNBlood chemistry[[id number]]?Glucose [Mass/volume] in Serum or Plasma [2345-7] 06/24/2024 02:24 PM156 mg/dLNBlood chemistry[[id number]]?Glucose [Mass/volume] in Serum or Plasma [2345-7]06/24/2024 09:51 AM264 mg/dLNCOVID-19 Test Viral Antigennull flavor [null]06/24/2024 05:00 PMSee noteNEGCOVID-19 Test Viral AntigenBlood chemistry[[id number]]?Glucose [Mass/volume] in Serum or Plasma [2345-7]06/24/2024 04:32 PM228 mg/dLNBlood chemistry[[id number]]?Glucose [Mass/volume] in Serum or Plasma [2345-7] 06/24/2024 11:38 AM144 mg/dLNBlood chemistry[[id number]]?Glucose [Mass/volume] in Serum or Plasma [2345-7]06/23/2024 04:19 PM154 mg/dLNBlood chemistry[[id number]]?Glucose [Mass/volume] in Serum or Plasma [2345-7] 06/23/2024 12:54 PM226 mg/dLNBlood chemistry[[id number]]?Glucose [Mass/volume] in Serum or Plasma [2345-7]06/23/2024 09:17 AM249 mg/dLNBlood chemistry[[id number]]?Glucose [Mass/volume] in Serum or Plasma [2345-7] 06/23/2024 10:41 AM120 mg/dLNBlood chemistry[[id number]]?Glucose [Mass/volume] in Serum or Plasma [2345-7]06/22/2024 03:55 PM210 mg/dLNBlood chemistry[[id number]]?Glucose [Mass/volume] in Serum or Plasma [2345-7] 06/22/2024 03:07 PM191 mg/dLNBlood chemistry[[id number]]?Glucose [Mass/volume] in Serum or Plasma [2345-7]06/22/2024 09:06 AM240 mg/dLNBlood chemistry[[id number]]?Glucose [Mass/volume] in Serum or Plasma [2345-7] 06/22/2024 10:46 AM92 mg/dLNBlood chemistry[[id number]]?Glucose [Mass/volume] in Serum or Plasma [2345-7]06/21/2024 11:54 AM405 mg/dLNBlood chemistry[[id number]]?Glucose [Mass/volume] in Serum or Plasma [2345-7] 06/21/2024 03:49 PM210 mg/dLNBlood chemistry[[id number]]?Glucose [Mass/volume] in Serum or Plasma [2345-7]06/21/2024 10:14 AM150 mg/dLNBlood chemistry[[id number]]?Glucose [Mass/volume] in Serum or Plasma [2345-7] 06/21/2024 08:40 AM198 mg/dLNBlood chemistry[[id number]]?Glucose [Mass/volume] in Serum or Plasma [2345-7]06/20/2024 03:06 PM146 mg/dLNBlood chemistry[[id number]]?Glucose [Mass/volume] in Serum or Plasma [2345-7] 06/20/2024 09:35 AM150 mg/dLNBlood chemistry[[id number]]?Glucose [Mass/volume] in Serum or Plasma [2345-7]06/20/2024 05:05 PM268 mg/dLNBlood chemistry[[id number]]?Glucose [Mass/volume] in Serum or Plasma [2345-7] 06/20/2024 10:48 AM168 mg/dLNBlood chemistry[[id number]]?Glucose [Mass/volume] in Serum or Plasma [2345-7]06/19/2024 03:25 PM159 mg/dLNBlood chemistry[[id number]]?Glucose [Mass/volume] in Serum or Plasma [2345-7] 06/19/2024 05:05 PM218 mg/dLNBlood chemistry[[id number]]?Glucose [Mass/volume] in Serum or Plasma [[facility]]06/19/2024 01:14 PM169 mg/dLNBlood chemistry[[id number]]?Glucose [Mass/volume] in Serum or Plasma [[facility]] 06/19/2024 09:19 AM286 mg/dLNBlood chemistry[[id number]]?Glucose [Mass/volume] in Serum or Plasma [2345-7]06/18/2024 03:56 PM168 mg/dLNBlood chemistry[[id number]]?Glucose [Mass/volume] in Serum or Plasma [2345-7] 06/18/2024 12:54 PM200 mg/dLNBlood chemistry[[id number]]?Glucose [Mass/volume] in Serum or Plasma [2345-7]06/18/2024 08:36 AM149 mg/dLNBlood chemistry[[id number]]?Glucose [Mass/volume] in Serum or Plasma [2345-7] 06/18/2024 11:14 AM76 mg/dLNBlood chemistry[[id number]]?Glucose [Mass/volume] in Serum or Plasma [2345-7]06/17/2024 12:54 PM170 mg/dLN Tuberculosis reaction wheal[35113-6]?Tuberculosis reaction wheal [05904-8]06/16/2024 05:00 PM0 mmNEGBlood chemistry[[id number]]?Glucose [Mass/volume] in Serum or Plasma [2345-7]06/17/2024 03:50 PM154 mg/dLNBlood chemistry[[id number]]?Glucose [Mass/volume] in Serum or Plasma [2345-7] 06/17/2024 09:57 AM109 mg/dLNBlood chemistry[[id number]]?Glucose [Mass/volume] in Serum or Plasma [2345-7]06/17/2024 08:56 AM123 mg/dLNBlood chemistry[[id number]]?Glucose [Mass/volume] in Serum or Plasma [2345-7] 06/16/2024 03:14 PM156 mg/dLNBlood chemistry[[id number]]?Glucose [Mass/volume] in Serum or Plasma [2345-7]06/16/2024 09:44 AM144 mg/dLN Tuberculosis reaction wheal[42196-9]?Tuberculosis reaction wheal [85266-6]06/16/2024 05:00 PMSee noteTB testBlood chemistry[[id number]]? Glucose [Mass/volume] in Serum or Plasma [2345-7]06/16/2024 03:40 PM149 mg/dLN Allergies, adverse reactions, alerts No known allergies and adverse reactions Medications Medication Instructions Route Dosage Frequency Start Date Stop Date Indications Status omeprazole 20 mg tablet,[place] yed release (DR/EC) (omeprazole ) 1 tablet, oral, Once A Day oral 1.0 1.0 d 08/03 Gastro-esophagea l reflux disease without esophagitis Active Trulicity (dulaglutid e) 3 mg/0.5 mL pen injector (Trulicity (dulaglutid e)) 1.5mg, subcutaneous, Once A Day on Fri [facility] 1.0 1.0 d 07/26 Type 2 diabetes mellitus with diabetic chronic kidney disease Active aspirin 81 mg tablet,chew able (aspirin) 1 tablet, oral, Once A Day oral 1.0 1.0 d 08/02 Atherosclerotic heart disease of [place] coronary artery without angina pectoris Active Entresto (sacubitril -valsartan) 24-26 mg tablet (Entresto (sacubitril -valsartan) ) 0.5 tab, oral, Twice A Day oral 1.0 12.0 h 08/03 Unspecified systolic (congestive) heart failure Active aspirin 81 mg tablet,chew able (aspirin) 1 tablet, oral, Once A Day oral 1.0 1.0 d 07/19 Atherosclerotic heart disease of [place] coronary artery without angina pectoris Active aspirin 81 mg tablet,chew able (aspirin) 1 tablet, oral, Once A Day oral 1.0 1.0 d 08/07 Atherosclerotic heart disease of [place] coronary artery without angina pectoris Active Brilinta (ticagrelor ) 90 mg tablet (Brilinta (ticagrelor )) 1 tablet, oral, Twice A Day oral 1.0 12.0 h 07/08 Atherosclerotic heart disease of [place] coronary artery without angina pectoris Active aspirin 81 mg tablet,chew able (aspirin) 1 tablet, oral, Once A Day oral 1.0 1.0 d 07/20 Atherosclerotic heart disease of [place] coronary artery without angina pectoris Active aspirin 81 mg tablet,chew able (aspirin) 1 tablet, oral, Once A Day oral 1.0 1.0 d 07/20 Atherosclerotic heart disease of [place] coronary artery without angina pectoris Active doxycycline hyclate 100 mg capsule (doxycycline hyclate) 1 capsule, oral, Twice A Day, suspected infection of left heel pressure wound oral 1.0 12.0 h 07/21/2024 07/31/2024 Activedoxycycline monohydrate 100 mg capsule (doxycycline monohydrate)1 capsule, oral, Twice A Day, suspected infection of left heel pressure woundoral1.012.0 h 502/5Activedoxycycline hyclate 100 mg capsule (doxycycline hyclate)1 capsule, oral, Twice A Day, suspected infection of left heel pressure woundoral1.012.0 h0502/5ActiveTrulicity (dulaglutide) 1.5 mg/0.5 mL pen injector (Trulicity (dulaglutide))1.5mg, subcutaneous, Once A Day on Fri subcutaneous1.01.0 d0/Type 2 diabetes mellitus with diabetic chronic kidney diseaseActiveaspirin 81 mg tablet,chewable (aspirin)1 tablet, oral, Once A Dayoral1.01.0 d0/5Atherosclerotic heart disease of [place] coronary artery without angina pectorisActiveBrilinta (ticagrelor) 90 mg tablet (Brilinta (ticagrelor))1 tablet, oral, Twice A Dayoral1.012.0 h 5Atherosclerotic heart disease of [place] coronary artery without angina pectorisActiveamoxicillin 500 mg tablet (amoxicillin)1 tablet, oral, Twice A Day, sinus infectionoral1.012.0 h0/5Active cefuroxime axetil 500 mg tablet (cefuroxime axetil)500 mg, oral, Twice A Dayoral 1.012.0 h0/5Acute cystitis without hematuriaActivedoxycycline monohydrate 100 mg capsule (doxycycline monohydrate)1 capsule, oral, Twice A Day, suspected infection of left heel pressure woundoral1.012.0 h007/22/2024 5Activenitroglycerin 0.3 mg tablet, sublingual (nitroglycerin)1 tablet, sublingual, Every 5 Minutes - PRN (x 3), chest pain 1 tablet q 5 mins if unrelieved call MDsublingual1.05.0 mintherosclerotic heart disease of [place] coronary artery without angina pectorisActive Vital Signs Date Vital Result Comment 07/13/2024 08:35 AM Temperature (8310-5) 98 [degF] Respiratory Rate (9279-1)18 /minHeart Rate (8867-4)68 /minBlood Pressure Systolic (8480-6)110 mm[Hg]Blood Pressure Diastolic (8462-4)60 mm[Hg]07/13/2024 02:23 PMBody Weight (08450-2)207 [lb_av]Body Mass Index (59412-7)37.86 kg/m2 07/13/2024 08:39 AMOxygen Saturation (62929-3)99 %07/14/2024 08:04 AMTemperature (8310-5)97.9 [degF]Oxygen Saturation (59745-2)97 %Respiratory Rate (9279-1)18 /minHeart Rate (8867-4)58 /minBlood Pressure Systolic (8480-6)119 mm[Hg]Blood Pressure Diastolic (8462-4)72 mm[Hg]07/14/2024 07:44 PMBody Weight (51141-2) 207.5 [lb_av]Body Mass Index (00637-5)37.95 kg/m207/15/2024 09:37 AMTemperature (8310-5)98 [degF]Oxygen Saturation (18075-5)96 %Respiratory Rate (9279-1)18 /min Heart Rate (8867-4)64 /minBlood Pressure Systolic (8480-6)100 mm[Hg]Blood Pressure Diastolic (8462-4)60 mm[Hg]07/16/2024 09:52 AMTemperature (8310-5)98.1 [degF]Oxygen Saturation (86007-5)95 %Respiratory Rate (9279-1)18 /minHeart Rate (8867-4)64 /minBlood Pressure Systolic (8480-6)122 mm[Hg]Blood Pressure Diastolic (8462-4)70 mm[Hg]07/16/2024 11:29 PMBody Weight (09308-8)195.5 [lb_av] Body Mass Index (86167-2)35.75 kg/m207/17/2024 09:02 AMTemperature (8310-5)98.1 [degF]Oxygen Saturation (22100-8)99 %Respiratory Rate (9279-1)18 /minHeart Rate (8867-4)61 /minBlood Pressure Systolic (8480-6)112 mm[Hg]Blood Pressure Diastolic (8462-4)66 mm[Hg]07/18/2024 08:44 AMTemperature (8310-5)98.2 [degF] Oxygen Saturation (88942-3)95 %Respiratory Rate (9279-1)18 /minHeart Rate (8867-4)60 /minBlood Pressure Systolic (8480-6)120 mm[Hg]Blood Pressure Diastolic (8462-4)72 mm[Hg]07/19/2024 09:46 AMTemperature (8310-5)97.9 [degF] Oxygen Saturation (20138-3)92 %Respiratory Rate (9279-1)18 /minHeart Rate (8867-4)58 /minBlood Pressure Systolic (8480-6)102 mm[Hg]Blood Pressure Diastolic (8462-4)60 mm[Hg]07/20/2024 09:43 AMTemperature (8310-5)97.6 [degF] Oxygen Saturation (39552-9)97 %Respiratory Rate (9279-1)18 /minHeart Rate (8867-4)55 /minBlood Pressure Systolic (8480-6)116 mm[Hg]Blood Pressure Diastolic (8462-4)66 mm[Hg]07/21/2024 08:13 AMTemperature (8310-5)97.7 [degF] Oxygen Saturation (42789-5)98 %Respiratory Rate (9279-1)18 /minHeart Rate (8867-4)53 /minBlood Pressure Systolic (8480-6)120 mm[Hg]Blood Pressure Diastolic (8462-4)70 mm[Hg]07/22/2024 08:36 AMTemperature (8310-5)98 [degF] Oxygen Saturation (83065-4)97 %Respiratory Rate (9279-1)18 /minHeart Rate (8867-4)68 /minBlood Pressure Systolic (8480-6)134 mm[Hg]Blood Pressure Diastolic (8462-4)72 mm[Hg]07/23/2024 08:21 AMTemperature (8310-5)98.2 [degF] Oxygen Saturation (16650-3)95 %Respiratory Rate (9279-1)18 /minHeart Rate (8867-4)76 /minBlood Pressure Systolic (8480-6)130 mm[Hg]Blood Pressure Diastolic (8462-4)70 mm[Hg]07/24/2024 12:29 AMBody Weight (25283-2)201.1 [lb_av] Body Mass Index (59572-7)36.78 kg/m207/24/2024 09:45 AMTemperature (8310-5)98.1 [degF]Oxygen Saturation (72863-2)97 %Respiratory Rate (9279-1)18 /minHeart Rate (8867-4)73 /minBlood Pressure Systolic (8480-6)124 mm[Hg]Blood Pressure Diastolic (8462-4)76 mm[Hg]07/25/2024 09:48 AMTemperature (8310-5)97.9 [degF] Oxygen Saturation (31884-3)91 %Respiratory Rate (9279-1)16 /minHeart Rate (8867-4)56 /minBlood Pressure Systolic (8480-6)116 mm[Hg]Blood Pressure Diastolic (8462-4)54 mm[Hg]07/26/2024 08:05 AMTemperature (8310-5)98.1 [degF] Oxygen Saturation (11594-1)96 %Respiratory Rate (9279-1)18 /minHeart Rate (8867-4)76 /minBlood Pressure Systolic (8480-6)122 mm[Hg]Blood Pressure Diastolic (8462-4)68 mm[Hg]07/27/2024 08:26 AMTemperature (8310-5)97.9 [degF] Oxygen Saturation (73234-7)96 %Respiratory Rate (9279-1)18 /minHeart Rate (8867-4)72 /minBlood Pressure Systolic (8480-6)130 mm[Hg]Blood Pressure Diastolic (8462-4)70 mm[Hg]07/28/2024 08:57 AMTemperature (8310-5)98 [degF] Oxygen Saturation (20691-3)99 %Respiratory Rate (9279-1)18 /minHeart Rate (8867-4)58 /minBlood Pressure Systolic (8480-6)98 mm[Hg]Blood Pressure Diastolic (8462-4)55 mm[Hg]07/30/2024 11:57 PMBody Weight (45779-7)202.5 [lb_av]Body Mass Index (20042-0)37.03 kg/m2 Social History No smoking Hx information available Encounters Type CPT Code Date Location Provider Indication s encounter report 06/15/2024 10:51 Francisco Carrasco bmyqzi1306/15/2024 01:15 PM - 07/07/2024 02:18 PMBrandon Carrasco ecbarv5006/15/2024 01:15 PM - 08/02/2024 10:47 Francisco [place]
--- OUTSIDE RECORDS SUMMARY | 2025-04-19 13:17 | XMS_ITS | Encounter Summary ---
Author Organization [facility] Address [address] [place] [address] Care Team Providers Care Brass Buffer Name Role Phone Vlad Cesar MD Primary Care Provider [phone] Vlad Cesar MD Unavailable Karine Foote LPN Unavailable Encounter Details DateTypeDepartmentCare Team (Latest Contact Info)Mlnittyytso22/21/2025Clinisync Result Encounter [facility] External Department Unsolicited Provider, Generic External Data Social History Tobacco UseTypesPacks/DayYears UsedDateSmoking Tobacco: NeverSmokeless Tobacco: NeverAlcohol UseStandard Drinks/WeekCommentsNever0 (1 standard drink = 0.6 oz pure alcohol)Caffeine: 1-2 cups per [id number] Health LiteracyAnswerDate Recorded How often do you [...] relatives?Once a week02/23/2024How often do you attend baptism or methodist services?Never02/23/2024o you belong to any clubs or organizations such as baptism groups, unions, fraKrossover or athletic groups, or school groups?Yes 02/23/2024How often do you attend meetings of the clubs or organizations you belong to?1 to 4 times per year02/23/2024re you , , , , never , or living with a partner?Never qzyjwrs9302/23/2024 AUDIT-CAnswerDate RecordedQ1: How often do you have [...] at all 02/23/2024HQ-2AnswerDate RecordedPatient Health Questionnaire-2 Score0 12/31/2024[facility] [place] of [facility] - Occupational Stress QuestionnaireAnswerDate [...] steady place to sleep [facility] (including now)?No01/12/2023Housing Stability Vital Sign AnswerDate RecordedIn the last 12 months, was there a time when you were not able to pay the mortgage or rent on time?No02/23/2024Number of Times Moved in the Last YearNot on file02/23/2024t any time in the past 12 months, were you homeless or living in a intermediate (including now)?No02/23/2024Comments UnknownSex and Gender InformationValueDate RecordedSex Assigned at BirthNot on fileLegal FmbBugdgu47/15/2023 6:47 PM EDTGender IdentityNot on fileSexual OrientationNot on filedocumented as of this encounter Functional Status * Over the past 2 weeks, how often have you been bothered by any of the following problems?QuestionAnswerDate of AssessmentAuthorLittle interest or pleasure in doing thingsNot at all12/31/2024 10:31 AM Shannan Branch LPN Feeling down, depressed, or hopelessNot at all12/31/2024 10:31 AM Shannan Branch LPNPatient Health Questionnaire-2 [id number] 10:31 AM Shannan Branch LPN documented as of this encounter Plan of Treatment Not on file documented as of this encounter Procedures Procedure NamePriorityDate/TimeAssociated DiagnosisCommentsCA ECHO DOPPLER KNPSWJZR86/21/2025 7:14 PM EST documented in this encounter Results * CA ECHO DOPPLER COMPLETE (06/29/2024 7:14 PM EST)Anatomical RegionLaterality ModalityOtherSpecimen (Source)Anatomical Location / LateralityCollection Method / VolumeCollection TimeReceived Time06/29/2024 7:14 PM EST Narrative 06/29/2024 7:15 PM EST [facility] ?[address] ? [place] [address] ? Cardiology Report ? Signed ? Patient: LULU,LAURA A ?MR#: [id number] ?? : 1950 ?Acct:[id number] ?? Age/Sex: 73 / F ?ADM Date: 06/28/24 ?? Loc: CARD ? Attending Dr: JULITO ZENDEJAS ? Ordering Physician: JULITO ZENDEJAS ?? Date of Service: 06/28/24 ?? Procedure(s): CA echo doppler complete ?? Accession Number(s): [id number] ? cc: VLAD CESAR ; JULITO ZENDEJAS ? Patient Name: ? LAURA LAWSON ? MR#: [id number] ? : 1950 ? Exam Date: 06/28/2024 ?? Ordering Doctor: DR JULITO ZENDEJAS M.D. ? ECHOCARDIOGRAM REPORT ? PROCEDURE: ? CA ECHO DOPPLER COMPLETE ? INDICATIONS: ? Heart failure with reduce ejection fraction ? COMPARISON: ? None. ? DESCRIPTION: ? COMPLETE ECHOCARDIOGRAM Real-time transthoracic ?? echocardiography with 2D, M-mode, spectral and color flow Doppler performed. ? QUALITY: ? Technical quality was good. ? LEFT VENTRICLE: ? Normal chamber size. Mild concentric left ventricular ?? hypertrophy. ??There is akinesis of the apex and apical segments with good ?? contractility of the remaining segments. ??Global systolic function is ?? moderately reduced. ?? LV EF: ? Moderately reduced left ventricular ejection fraction, (35-40%). ?? DIASTOLIC: ? Grade I diastolic dysfunction. ?? ATRIAL SEPTUM: ? Visually appears intact. ?? LEFT ATRIUM: ? Mild dilatation. ?? RIGHT ATRIUM: ? Normal chamber size. ?? RIGHT VENTRICLE: ? Normal chamber size. ??Normal right ventricular systolic ?? function. ? TRICUSPID VALVE: Normal mobility and thickness. No stenosis with trivial ?? regurgitation. ? MITRAL VALVE: ? Moderately thickened with normal mobility. ?? No evidence of ?? mitral valve stenosis. ??Mild mitral annular calcification. Trivial mitral ?? regurgitation. ? AORTIC VALVE: ? Normal trileaflet appearance. Thickened aortic valve. ? Normal leaflet mobility. ??No aortic valve stenosis. No aortic regurgitation. ? AORTIC ROOT: ? Normal diameter and appearance. ? PULMONIC VALVE: Normal thickness and mobility. No stenosis. Trivial ?? regurgitation. ? PERICARDIUM: ? No evidence of pericardial effusion. ? IVC: ? Collapses with inspirations. ? PLEURA: ? CONCLUSION: ? 1. Mild concentric left ventricular hypertrophy with moderately reduced ?? systolic function and segmental wall motion abnormalities involving the apex ?? and apical segments. ??Estimated LVEF is 35 to 40%. ?? 2. Normal right ventricular size and systolic function. ?? 3. No significant valvular dysfunction. ?? 4. No pericardial effusion. ? Adult Echocardiography Procedure Report ?? Left Ventricle ?? LVEDD (3.7 - 5.6 cm): ? 4.35 cm ?? LVESD (2.2 - 4.0 cm): ? 3.02 cm ?? LVIVS thickness (0.6 - 1.2 cm): ? 1.03 cm ?? LVPW thickness (0.5 - 1.0 cm): ? 1.11 cm ?? e': ? 0.05 m/s ?? E - e': ? 6.22 ?? LVOT Max Gradient: ? 1.38 mm[Hg] ?? LVOT Area (cm2): ? 0.59 m/s ?? Peak Velocity (LVOT): ? 0.59 m/s ?? Mean Velocity (LVOT): ? 0.35 m/s ?? LVOT Diameter ? 2.11 cm ?? Left Atrium ?? LA Volume Index (2D A2C): ? 38.19 ml/m2 ?? Left Atrium Systolic Dimension: ? 4.67 cm ?? Mitral Valve ?? MV E to A Ratio: ? 0.41 ?? Mitral Valve A-Wave Peak Velocity: ? 0.79 m/s ?? Mitral Valve E-Wave Peak Velocity: ? 0.33 m/s ?? Right Ventricle ?? Aorta ?? AO Root Diam: ? 3.12 cm ?? Aortic Valve ?? AoV Area (Peak Dixon): ? 1.52 cm2, 1.52 cm2 ?? AoV Area (VTI): ? 1.63 cm2, 1.63 cm2 ?? Peak Velocity(Antegrade Flow): ? 1.35 m/s ?? Peak Gradient(Antegrade Flow): ? 7.26 mm[Hg] ?? Mean Velocity(Antegrade Flow): ? 0.86 m/s ?? Mean Gradient(Antegrade Flow): ? 3.60 mm[Hg] ?? Velocity Time Integral: ? 25.92 cm ?? Tricuspid Valve ?? Pulmonic Valve ?? Mean Gradient: ? 3.05 mm[Hg] ?? Mean Velocity: ? 0.81 m/s ?? Peak Velocity: ? 1.30 m/s, 1.41 m/s ?? Peak Gradient: ? 7.90 mm[Hg], 6.74 mm[Hg] ?? Right Atrium ?? Right Atrium Systolic Pressure: ? 29.42 ml, 29.42 ml ? Dictated by: Julito Zendejas M.D. on 06/29/2024 at 19:07 ? Approved by: Julito Zendejas M.D. on 06/29/2024 at 19:14 ? Dictated By: ?JULITO ZENDEJAS ? Signed By: ?06/29/245 ? DD/ ? TD/TT: ? Defect Repairer Glassware: Procedure Note Radiology, Radiologist, MD - 01/21/2025 [place] [address] Cardiology Report Signed Patient: LAURA LAWSON AMR#: [id number] : 1950cct:[id number] Age/Sex: 73 / FADM Date: 06/28/24 Loc: CARD Attending Dr: JULITO ZENDEJAS Ordering Physician: JULITO ZENDEJAS Date of Service: 06/28/24 Procedure(s): CA echo doppler complete Accession Number(s): [id number] cc: VLAD CESAR ; JULITO ZENDEJAS Patient Name: LAURA LAWSON MR#: [id number] : 1950 Exam Date: 06/28/2024 Ordering Doctor: [...] at 19:14 Dictated By: JULITO ZENDEJAS Signed By:06/29/245 DD/ 13 TD/TT: Defect Repairer Glassware: Authorizing ProviderResult TypeResult StatusGeneric External Data Provider CLINISYNC IMAGINGFinal Result documented in this encounter Visit Diagnoses Not on filedocumented in this encounter Care Teams Team MemberRelationshipSpecialtyStart DateEnd Date Vlad Cesar MD [address] [facility] [address] [place] [address] PCP - GeneralInternal Medicine10/21/22 Vlad Cesar MD [address] [facility] [address] [place] [address] PCP - ACO Reach10/31/22 Karine Foote LPN [address] [facility] [address] [place] [address] 12/23/24documented as of this encounter
--- OUTSIDE RECORDS SUMMARY | 2025-04-19 13:17 | XMS_ITS | Encounter Summary ---
Author Organization [facility] Address [address] [place] [address] Care Team Providers Care Machinist Apprentice Wood Name Role Phone Vlad Cesar MD Primary Care Provider [phone] Vlad Cesar MD Unavailable [phone] Karine Foote LPN Unavailable Encounter Details DateTypeDepartmentCare Team (Latest Contact Info)Frfbmomwxjn97/29/2025Clinisync Result Encounter [facility] External Department Unsolicited Provider, Generic External Data Social History Tobacco UseTypesPacks/DayYears UsedDateSmoking Tobacco: NeverSmokeless Tobacco: NeverAlcohol UseStandard Drinks/WeekCommentsNever0 (1 standard drink = 0.6 oz pure alcohol)Caffeine: 1-2 cups per [id number] Health LiteracyAnswerDate Recorded How often do you [...] relatives?Once a week02/23/2024How often do you attend quaker or tenriism services?Never02/23/2024o you belong to any clubs or organizations such as quaker groups, unions, fraN[employer] or athletic groups, or school groups?Yes 02/23/2024How often do you attend meetings of the clubs or organizations you belong to?1 to 4 times per year02/23/2024re you , , , , never , or living with a partner?Never vcshcia3002/23/2024 AUDIT-CAnswerDate RecordedQ1: How often do you have [...] at all 02/23/2024HQ-2AnswerDate RecordedPatient Health Questionnaire-2 Score0 12/31/2024[facility] [place] of Occupational Health - Occupational Stress QuestionnaireAnswerDate [...] steady place to sleep [facility] ([facility])?No01/12/2023Housing Stability Vital Sign AnswerDate RecordedIn the last 12 months, was there a time when you were not able to pay the mortgage or rent on time?No02/23/2024Number of Times Moved in the Last YearNot on file02/23/2024t any time in the past 12 months, were you homeless or living in a skilled nursing (including now)?No02/23/2024Comments UnknownSex and Gender InformationValueDate RecordedSex Assigned at BirthNot on fileLegal HwzFbymdg29/15/2023 6:47 PM EDTGender IdentityNot on fileSexual OrientationNot on filedocumented as of this encounter Plan of Treatment Not on file documented as of this encounter Procedures Procedure NamePriorityDate/TimeAssociated RurmhzthxKpbnxynjYAQ39/29/2025 2:06 PM EDT documented in this encounter Results * ITP (04/06/2025 2:06 PM EDT)Anatomical RegionLateralityModalityOtherSpecimen (Source)Anatomical Location / LateralityCollection Method / VolumeCollection TimeReceived Time04/06/2025 2:06 PM EDT Narrative 04/06/2025 7:29 PM EDT [facility] ?[address] ? [place] [address] ?Cardiac Rehab Report ? Signed ? Patient: LULU,LAURA A ?MR#: [id number] ?? : 1950 ?Acct:[id number] ?? Age/Sex: 74 / F ?ADM Date: 10/06/25 ?? Loc: CR ? Attending Dr: Gerardo Edwards M.D. ? Ordering Physician: Gerardo Edwards M.D. ?? Date of Service: 04/06/25 ?? Procedure(s): ITP ?? Accession Number(s): [id number] ? cc: ?[facility] ? Test Date: ?2025-04-06 ?? Pat Name: ? LAURA LAWSON ?Department: ? Room: ? - ?? Gender: ? Female ? Music Video Director: ? : ?1950 ? Requested By: GERARDO EDWARDS ?? Order Number: [id number] ?Reading MD: ?? JULITO ??Josh HERNANDEZ ? Interpretive Statements ?? Session Date: ? Electronically Signed On 04-06-2025 19:29:21 EDT by JULITO ??MOUKARBEL, M.D. ? Dictated By: ?JULITO HERNANDEZ ? Signed By: ?04/06/25 1929 ? DD/ 1406 ? TD/TT: ? Mixer And Scaler: Procedure Note Radiology, Radiologist, - 04/06/[address] [address] Cardiac Rehab Report Signed Patient: LAURA LAWSON AMR#: [id number] : 3Acct:[id number] Age/Sex: 74 / FADM Date: 03/14/25 Loc: CR Attending Dr: Gerardo Edwards M.D. Ordering Physician: Gerardo Edwards M.D. Date of Service: 04/06/25 Procedure(s): ITP Accession Number(s): [id number] cc: [facility] Test Date: 2025-04-06 Pat Name: LAURA LAWSON Department: Room: - Gender: Female Music Video Director: : 1950 Requested By: GERARDO EDWARDS Order Number: [id number] Veronica MD: JULITO HERNANDEZ M.D. Interpretive Statements Session Date: Electronically Signed On 04-06-2025 19:29:21 EDT by JULITO HERNANDEZ M.D. Dictated By: JULITO HERNANDEZ Signed By:04/06/251928 DD/ 1406 TD/TT: Mixer And Scaler: Authorizing ProviderResult TypeResult StatusGeneric External Data Provider CLIN[facility]YNC IMAGINGFinal Result documented in this encounter Visit Diagnoses Not on filedocumented in this encounter Care Teams Team MemberRelationshipSpecialtyStart DateEnd Date Vlad Cesar MD [address] [facility] [address] [place] [address] PCP - GeneralInternal Medicine10/21/22 Vlad Cesar MD [address] [facility] [address] [place] [address] PCP - ACO Reach10/31/22 Karine Foote LPN [address] [facility] [address] [place] [address] 12/23/24documented as of this encounter
--- OUTSIDE RECORDS SUMMARY | 2025-04-19 13:17 | XMS_ITS | Encounter Summary ---
Author Organization [facility] Address [address] [place] [address] Care Team Providers Care Agency Owner Name Role Phone Vlad Cesar MD Primary Care Provider [phone] Vlad Cesar MD Unavailable [phone] Karine Foote LPN Unavailable Encounter Details DateTypeDepartmentCare Team (Latest Contact Info)Vlyxncqofpy18/17/2024Clinisync Result Encounter [facility] External Department Unsolicited Vlad Cesar MD [address] [facility] [address] [place] [address] Social History Tobacco UseTypesPacks/DayYears UsedDateSmoking Tobacco: NeverSmokeless Tobacco: NeverAlcohol UseStandard Drinks/WeekCommentsNever0 (1 standard drink = 0.6 oz pure alcohol)Caffeine: 1-2 cups per [id number] Health LiteracyAnswerDate Recorded How often do you [...] relatives?Once a week02/23/2024How often do you attend advent or sikh services?Never02/23/2024o you belong to any clubs or organizations such as advent groups, unions, fraternal or athletic groups, or school groups?Yes 02/23/2024How often do you attend meetings of the clubs or organizations you belong to?1 to 4 times per year02/23/2024re you , , , , never , or living with a partner?Never wblwhrh8402/23/2024 AUDIT-CAnswerDate RecordedQ1: How often do you have [...] at all 02/23/2024HQ-2AnswerDate RecordedPatient Health Questionnaire-2 Score0 12/31/2024[facility] [place] [facility] - Occupational Stress QuestionnaireAnswerDate [...] steady place to sleep or slept in [facility] (including now)?No01/12/2023Housing Stability Vital Sign AnswerDate RecordedIn the last 12 months, was there a time when you were not able to pay the mortgage or rent on time?No02/23/2024Number of Times Moved in the Last YearNot on file02/23/2024t any time in the past 12 months, were you homeless or living in a fpc (including now)?No02/23/2024Comments UnknownSex and Gender InformationValueDate RecordedSex Assigned at BirthNot on fileLegal LpyYhcuwa06/15/2023 6:47 PM EDTGender IdentityNot on fileSexual OrientationNot on filedocumented as of this encounter Functional Status * Over the past 2 weeks, how often have you been bothered by any of the following problems?QuestionAnswerDate of AssessmentAuthorLittle interest or pleasure in doing thingsNot at all12/31/2024 10:31 AM Shannan Branch LPN Feeling down, depressed, or hopelessNot at all12/31/2024 10:31 AM EDTVoss, Shannan, LPNPatient Health Questionnaire-2 Gpimj125/ 10:31 AM EDTVokaren, Shannan, LIQUOR BLENDER documented as of this encounter Plan of Treatment Not on file documented as of this encounter Procedures Procedure NamePriorityDate/TimeAssociated DiagnosisCommentsMR LUMBAR SPINE W AND WO KQUGMXYO13/17/2024 7:47 AM EDT documented in this encounter Results * MR lumbar spine w and wo contrast (03/25/2024 7:47 AM EDT)Anatomical Region LateralityModalitySpine, L-spineMagnetic ResonanceSpecimen (Source)Anatomical Location / LateralityCollection Method / VolumeCollection TimeReceived Time 03/25/2024 7:47 AM EDT Narrative 03/25/2024 7:50 AM EDT [facility] ?[address] ? [place] [address] ? Magnetic Resonance Report ? Signed ? Patient: LAURA LAWSON ?MR#: [id number] ?? : 1950 ?Acct:[id number] ?? Age/Sex: 73 / F ?ADM Date: 03/23/24 ?? Loc: MRI ? Attending Dr: VLAD CESAR ? Ordering Physician: VLAD CESAR ?? Date of Service: 03/23/24 ?? Procedure(s): MR lumbar spine wo/w con ?? Accession Number(s): [id number] ? cc: VLAD CESAR ? [facility] ? [address] [facility] ? [place] [address] ? Patient Name: ?? LAURA LAWSON ? MRN: [facility]:[id number] ? date: 1950 ?Sex: F ?? Assigned Patient Location: MRI ?? Current Patient Location: ? Accession/Order Number: [id number] ?? Exam Date: 03/23/2024 ??12:50 ?Report Date: 03/25/2024 ??07:47 ? At the request of: ?? VLAD ??MELBA ? Procedure: ??MR lumbar spine wo/w con ? EXAMINATION: MR lumbar spine wo/w con ? HISTORY: lumbar radiculopathy ? COMPARISON: No relevant comparison available. ? TECHNIQUE: Axial T1 and T2; Sagittal T1, T2, and STIR sequences. Images were ?? performed before and after the administration of intravenous Dotarem contrast. ? FINDINGS: ?? For the purposes of numbering, sagittal T2 image # 8 extends from the T10 ?? vertebral body superiorly to the S3 level inferiorly. ? PARASPINAL AREA: Normal with no visible mass. ?? BONES: Normal alignment with no acute fracture or spondylolisthesis. Posterior ? decompression and bilateral transpedicular fusion L3-L5 with susceptibility ?? artifact. There is increased STIR signal identified in the L2 vertebral body ?? suggesting edema . Moderate diffuse degenerative spondylosis ?? CORD/CAUDA EQUINA: Normal caliber, contour, and signal intensity. ? DISC LEVELS: ?? 12-L1: Early degenerative disc disease is present without focal protrusion or ?? neural impingement. ?? L1-L2: Early degenerative disc disease is present without focal protrusion or ?? neural impingement. ?? L2-L3: Moderate disc space narrowing and desiccation with endplate sclerosis. ?? Moderate ligamentum flavum hypertrophy and facet osteoarthropathy. Mild ?? trefoil ?? narrowing of the central canal. Mild right and no left foraminal stenosis ?? L3-L4: Interbody spacer. Mild disc/osteophyte complex. Mild central canal ?? stenosis. No foraminal stenosis ?? L4-L5: 2 mm anterolisthesis of L4 on L5 Interbody spacer. Mild disc/osteophyte ? complex. Mild central canal stenosis. No foraminal stenosis. ?? L5-S1: No significant disc/facet abnormality, spinal stenosis, or foraminal ?? stenosis. ? MR/MR lumbar spine wo/w con ?? IMPRESSION: ? Increased L1 STIR signal suggesting bone edema ? Lumbar fusion with degenerative changes resulting in mild central and ?? foraminal ?? stenosis detailed above ? Electronically authenticated by: DILLAN ??WEST ?? Date: 03/25/2024 ??07:47 ? Dictated By: ?Dillan Andrew M.D. ? Signed By: ?03/25/24 0750 ? DD/ 0747 ? TD/TT: ? 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: Procedure Note Radiology, Radiologist, MD - 03/25/[address] [address] Magnetic Resonance Report Signed Patient: LAURA LAWSON AMR#: [id number] : 3Acct:[id number] Age/Sex: 73 / FADM Date: 03/23/24 Loc: MRI Attending Dr: VLAD CSEAR Ordering Physician: VLAD CESAR Date of Service: 03/23/24 Procedure(s): MR lumbar spine wo/w con Accession Number(s): [id number] cc: VLAD CESAR [place] [address] Patient Name: LAURA LAWSON MRN: [id number] date: 1950 Sex: F Assigned Patient Location: MRI Current Patient Location: Accession/Order Number: [id number] Exam Date: 03/23/2024 12:50 Report Date: 03/25/2024 [...] M.D. Signed By:03/25/24 0750 DD/ 0747 TD/TT: 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: Authorizing ProviderResult TypeResult StatusDanijason Cesar MDIMMiracle MRI PROCEDURES Final Result documented in this encounter Visit Diagnoses Not on filedocumented in this encounter Care Teams Team MemberRelationshipSpecialtyStart DateEnd Date Vlad Cesar MD [address] [facility] [address] [place] [address] PCP - GeneralInternal Medicine10/21/22 Vlad Cesar MD [address] [facility] [address] [place] [address] PCP - ACO Reach10/31/22 Karine Foote LPN [address] [facility] [address] [place] [address] 12/23/24documented as of this encounter
--- OUTSIDE RECORDS SUMMARY | 2025-04-19 13:17 | XMS_ITS | Encounter Summary ---
Author Organization [facility] Address [address] [place] [address] Care Team Providers Care Hand Counter Name Role Phone Vlad Cesar MD Primary Care Provider [phone] Vlad Cesar MD Unavailable [phone] Karine Foote LPN Unavailable Encounter Details DateTypeDepartmentCare Team (Latest Contact Info)Eojogeqsnvi97/06/2025Patient Outreach [facility] [address] [place] [address] Radha Holt LPN Social History Tobacco UseTypesPacks/DayYears UsedDateSmoking Tobacco: NeverSmokeless Tobacco: NeverAlcohol UseStandard Drinks/WeekCommentsNever0 (1 standard drink = 0.6 oz pure alcohol)Caffeine: 1-2 cups per [id number] Health LiteracyAnswerDate Recorded How often do you [...] relatives?Once a week02/23/2024How often do you attend anabaptist or evangelical services?Never02/23/2024o you belong to any clubs or organizations such as anabaptist groups, unions, fraTakkle or athletic groups, or school groups?Yes 02/23/2024How often do you attend meetings of the clubs or organizations you belong to?1 to 4 times per year02/23/2024re you , , , , never , or living with a partner?Never vsiccsw5502/23/2024 AUDIT-CAnswerDate RecordedQ1: How often do you have [...] at all 02/23/2024HQ-2AnswerDate RecordedPatient Health Questionnaire-2 Score0 12/31/2024[facility] [place] of Occupational Health - Occupational Stress QuestionnaireAnswerDate [...] steady place to sleep or slept in [facility] (including now)?No01/12/2023Housing Stability Vital Sign AnswerDate RecordedIn the last 12 months, was there a time when you were not able to pay the mortgage or rent on time?No02/23/2024Number of Times Moved in the Last YearNot on file02/23/2024t any time in the past 12 months, were you homeless or living in a group home (including now)?No02/23/2024Comments UnknownSex and Gender InformationValueDate RecordedSex Assigned at BirthNot on fileLegal OmnLuibwz33/15/2023 6:47 PM EDTGender IdentityNot on fileSexual OrientationNot on filedocumented as of this encounter Progress Notes * Radha Holt LPN - 04/14/2025 3:43 PM EST <April 14, 2025, 15:43 - Radha Holt LPN> Called Latrice her friend and she state she is still in [facility] for therapy she is standing and pivoting from bed to chair she goes down for therapy. Her heel wound is better. But her right hip painis still there. She has a follow up appt with Dr Roa on 04/21. No dc date yet documented in this encounter Plan of Treatment Not on file documented as of this encounter Visit Diagnoses Not on filedocumented in this encounter Care Teams Team MemberRelationshipSpecialtyStart DateEnd Date Vlad Cesar MD [address] [facility] [address] [place] [address] PCP - GeneralInternal Medicine10/21/22 Vlad Cesar MD [address] [facility] [address] [place] [address] PCP - ACO Reach10/31/22 Karine Foote LPN [address] [facility] [address] [place] [address] 12/23/24documented as of this encounter
--- OUTSIDE RECORDS SUMMARY | 2025-04-19 13:17 | XMS_ITS | Encounter Summary ---
Author Organization [facility] Address [address] [place] [address] Care Team Providers Care Meat Team Member Name Role Phone Vlad Cesar MD Primary Care Provider [phone] Vlad Cesar MD Unavailable [phone] Karine Fooet LPN Unavailable Encounter Details DateTypeDepartmentCare Team (Latest Contact Info)Gwzfwxzpilw22/28/2025Patient Outreach [facility] [address] [place] [address] Radha Holt LPN Social History Tobacco UseTypesPacks/DayYears UsedDateSmoking Tobacco: NeverSmokeless Tobacco: NeverAlcohol UseStandard Drinks/WeekCommentsNever0 (1 standard drink = 0.6 oz pure alcohol)Caffeine: 1-2 cups per [id number] Health LiteracyAnswerDate Recorded How often do you [...] relatives?Once a week02/23/2024How often do you attend catholic or faith services?Never02/23/2024o you belong to any clubs or organizations such as catholic groups, unions, fraZtail or athletic groups, or school groups?Yes 02/23/2024How often do you attend meetings of the clubs or organizations you belong to?1 to 4 times per year02/23/2024re you , , , , never , or living with a partner?Never ezofqoq4302/23/2024 AUDIT-CAnswerDate RecordedQ1: How often do you have [...] at all 02/23/2024HQ-2AnswerDate RecordedPatient Health Questionnaire-2 Score0 12/31/2024[facility] [place] of Occupational Health - Occupational Stress QuestionnaireAnswerDate [...] steady place to sleep or slept in [facility] (including now)?No01/12/2023Housing Stability Vital Sign AnswerDate RecordedIn the last 12 months, was there a time when you were not able to pay the mortgage or rent on time?No02/23/2024Number of Times Moved in the Last YearNot on file02/23/2024t any time in the past 12 months, were you homeless or living in a [facility] (including now)?No02/23/2024Comments UnknownSex and Gender InformationValueDate RecordedSex Assigned at BirthNot on fileLegal NykEpahwf26/15/2023 6:47 PM EDTGender IdentityNot on fileSexual OrientationNot on filedocumented as of this encounter Progress Notes * Radha Holt LPN - 04/05/2025 9:20 AM EDT <April 05, 2025, 10:31 - Radha Holt LPN> Flowsheet Row Patient Outreach from 04/05/2025 in [facility]NOTE 3] with Radha Holt LPN Hospital Information ED, Hospital or Shelter Facility Discharge? Hospital Patient has been contacted within two business days of discharge No Have two attempts been made to contact the patient within two business days of being discharged? No Diagnosis ACUTE RIGHT HIP PAIN, DIABETIC FOOT ULCER, CONSTIPATION Discharge Date 04/02/25 Discharged To: Shelter Facility (specify SNF in comments) Discharge [facility] Axel Engagement Admission Date 03/29/25 Medications Appointments Self Management Patient Teaching Wrap Up documented in this encounter Plan of Treatment Not on file documented as of this encounter Visit Diagnoses Not on filedocumented in this encounter Care Teams Team MemberRelationshipSpecialtyStart DateEnd Date Vlad Cesar MD [address] [facility] [address] [place] [address] PCP - GeneralInternal Medicine10/21/22 Vlad Cesar MD [address] [facility] [address] [place] [address] PCP - ACO Reach10/31/22 Karine Foote LPN [address] [facility] [address] [place] [address] 12/23/24documented as of this encounter
--- OUTSIDE RECORDS SUMMARY | 2025-04-19 13:20 | XMS_ITS | Clinical Summary ---
Author Organization [facility] Address [address] [place] [address] Care Team Providers Care Manager Union Name Role Phone Vlad Cesar MD Primary Care Provider [phone] Allergies Active AllergyReactionsCriticalityNoted DateCommentsClindamycinItching,RashHigh 03/28/20254266GoicgcxmhnRucjnrhhnvozKau62/10/2022 Other reaction(s): Chest Pain CjnudxpntgVrlosgs56/14/4525MnqwgmebEcisvUuv96/10/2022 Other reaction(s): sleeplessness Medications MedicationSigDispense QuantityRefillsLast FilledStart DateEnd DateStatus allopurinol (Zyloprim) 300 mg tablet Take 300 mg by mouth in the morning.08/12/2022ctive baclofen (Lioresal) 10 mg tablet Take 10 mg by mouth at bedtime.04/27/2022ctive insulin lispro (HumaLOG) 100 unit/mL injection 5 Units with breakfast, with lunch, and with evening meal. Patient reports taking three times daily15 minutes before meals. Sliding scaleActive nitroglycerin (Nitrostat) 0.3 mg SL tablet nitroglycerin 0.3 mg sublingual tabletActive omeprazole (PriLOSEC) [address] capsule Take 20 mg by mouth before breakfast.08/01/2022ctive Toujeo Max U-300 SoloStar 300 unit/mL (3 mL) injection Inject 100 Units under the skin in the morning.11/19/2021ctive pregabalin (Lyrica) 25 mg capsule Take 25 mg by mouth two times daily.11/01/2024Active ticagrelor (Brilinta) 90 mg tablet Indications:NSTEMI (non-ST elevated myocardial infarction) (CMS/HCC)Take 1 tablet (90 mg) by mouth two times daily for 720 doses. 180 tablet /5Active apixaban (Eliquis) 5 mg tablet Indications:Flutter-fibrillation (CMS/HCC)Take 1 tablet (5 mg) by mouth two times daily. 180 tablet /5Active atorvastatin (Lipitor) 80 mg tablet Take 80 mg by mouth at bedtime.5Active insulin glargine-yfgn 100 unit/mL solution Inject under the skin.5Active meloxicam (Mobic) 15 mg tablet Take 15 mg by mouth in the morning.5Active sacubitril-valsartan (Entresto) 24-26 mg tablet Indications:Chronic HFrEF (heart failure with reduced ejection fraction) (CMS/HCC)Take 0.5 tablets by mouth two times daily. 90 tablet 502/6Active ezetimibe (Zetia) 10 mg tablet Indications:Hyperlipidemia, unspecified hyperlipidemia typeTAKE 1 TABLET BY MOUTH EVERY DAY IN THE MORNING 90 tablet 5Active potassium chloride CR (K-Tab) 20 mEq ER tablet Take 20 mEq by mouth in the morning.5Active dapagliflozin propanediol (Farxiga) 5 mg Indications:NSTEMI (non-ST elevated myocardial infarction) (CMS/HCC)Take 1 tablet (5 mg) by mouth in the morning. 90 tablet /239634/6Active levoFLOXacin (Levaquin) 750 mg tablet Take 1 tablet by mouth in the morning.5Active metoprolol succinate XL (Toprol-XL) 25 mg 24 hr tablet Indications:Benign hypertensive heart disease with heart failure (CMS/HCC)Take 0.5 tablets (12.5 mg) by mouth once daily as directed. Do not crush or chew. 45 tablet 5Active amiodarone (Pacerone) 200 mg tablet Indications:Paroxysmal atrial fibrillation (CMS/HCC)Take 2 tablets (400 mg) by mouth two times daily for 14 days, THEN 1 tablet (200 mg) in the morning. 146 tablet /5Active Additional Information Patient taking differently: 200mg daily, Reported on 04/11/2025 spironolactone (Aldactone) 25 mg tablet Indications:Chronic systolic heart failure (CMS/HCC)Take 1 tablet (25 mg) by mouth in the morning. 90 tablet /6Active torsemide (Demadex) 20 mg tablet Indications:Chronic systolic heart failure (CMS/HCC)Take 1 tablet (20 mg) by mouth in the morning. 90 tablet 6Active Additional Information Patient taking differently:20 mg oral2 times daily, Reported on 04/11/2025 Active Problems ProblemNoted DateDiagnosed DateBlister of right foot04/07/2025ervical jjeayusoim33/30/2025Edema of both lower uanvxcuubgt01/30/2025Neuropathic pain 04/07/2025Primary osteoarthritis of left hip04/07/20250917Dkbavvqswbqu32/30/2025 Trochanteric bursitis, right hip04/07/2025Ulcer of left heel04/07/2025Wound fwhqvdojn25/30/2025Presence of automatic (implantable) cardiac defibrillator 03/31/2025Presence of cardiac lmriuqmnx71/23/2025Pressure injury of right buttock, stage taxia12/23/20240919Fzrixedenyatcb43/03/2025Non compliance w medication dzbeqja4609/13/2024Moderate nonproliferative diabetic retinopathy of both eyes without macular edema associated with type 2 diabetes mellitus 09/07/2024History of DVT in /10/2025Impaired skin /10/2025 Overview (07/19/2024): Problem added on documentation of skin impairments. Mild mitral hbmamreanezle80/31/2025ognitive communication gdtcamc5707/08/2024 Dysphagia, oral phase07/08/2024Muscle weakness (generalized)06/17/2024quired absence of both cervix and trbjat4706/14/2024ute cystitis without hematuria 06/14/2024arpal tunnel syndrome, left upper limb06/14/20241957Zfjrfbzikuu38/06/2025 Chronic kidney disease, stage 3a06/14/2024Other chronic pain06/14/2024Pain in left knee06/14/2024Type 2 diabetes mellitus with diabetic chronic kidney disease 06/14/2024Unspecified systolic (congestive) heart uevxbac6506/14/2024Lumbar stenosis with neurogenic ahzxktsezwlb49/19/2024ngina fdvfeszd47/11/2024ombined forms of age-related cataract of both eyes12/04/2023History of lumbar fusion 12/04/2023Nonexudative age-related macular nacoafbvnuge42/27/2024hronic systolic heart fffnhec5910/09/2023oronary artery disease involving mcgrath coronary artery of mcgrath heart with other form of angina imzlsnmq83/01/2024 Coronary artery xqhgsea7309/26/2023AD in mcgrath ftufvm0509/09/2023ericardial xcrhzfax94/27/2024History of carpal tunnel surgery of right wrist07/31/2023 07/31/2023Impaired mobility and uguznosfg02Morbid obesity with body mass index (BMI) of 45.0 to 49.9 in adultcute on chronic diastolic heart mvgixso08cute exacerbation of CHF (congestive heart failure)07/03/2023OVID-19007/03/2023NSTEMI (non-ST elevated myocardial infarction)07/02/2023cquired cbxnocslpbuwmvwfb17 Diastolic tnwiypqwmni51Lumbar euzchporaklpu83/07/2023 07/31/2023aresthesia of skinrimary osteoarthritis of both kneesS/P drug eluting coronary stent wfcpylqyy27/07/2023 07/31/2023Localized edemaoronary artery disease (CAD) dczsadyu59GERD (gastroesophageal reflux disease)10/15/2022 07/31/20230709Ejmygqnaplnfrt76/09/202302/22/2024Thyroid qcnqzuv41/09/2023Difficulty qnohxmz91/16/2021Pure crvjphbjlkizwbaqwxut49/14/2021 Assessment & Plan (02/26/2023 12:12 PM EDT): Continue lipitor Script completed for lipid level- last lipids noted in chart is from 2020 Reviewed labs 05/2022 and liver function was normal Zvwcdgpyowzi64/30/2020Peripheral venous xwmriyhadngnn70/03/2020 Assessment & Plan (02/26/2023 12:15 PM EDT): Continue torsemide F/U with PCP Continue to wear compression to BLE Polyneuropathy due to type 2 diabetes wihwaliw79/03/2020Chronic foot ulcer 11/25/2019Ulcer of foot due to type 2 diabetes xeupwlcv26Skin sensation iopdtrxxvxd91/29/2020Decreased estrogen level07/28/2019Diabetic retinopathy associated with type 2 diabetes tnuzjfzw21/24/2019Dyspnea on ocujjuwb07/26/2019Osteoarthritis of knee12/29/2017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Umbilical rlhmvg7107/15/2017Renal mass05/28/2017Generalized lkilznxvogbxtq54/11/2017Cerebrovascular wtioagh5602/01/2016Allergic rhinitis 07/12/2015History of ihtijasjipds05/03/2016Hyperglycemia due to type 2 diabetes zznnjesn31/03/2016Long term current use of qlgsiho7007/12/2015Uric acid ittmotqsjkiiggz13/03/2016Pulmonary function studies mvtmlxul06/27/2014 Preoperative evaluation to rule out surgical tlgefwjebriodngz38/15/2014Gout 10/08/2013History of eprmnfjyq55/02/2014Morbid nyhsrgu7510/08/2013Type 2 diabetes mellitus without khvgmedaxghf09/02/2014enign essential mqxziidprzwg14/01/2014 Assessment & Plan (02/26/2023 12:14 PM EDT): Hypertension is controlled currently 136/67 Renal function stable from labs 05/2022, K+ normal Continue candesartan, hydralazine, labetolol, torsemide Coronary pwxajoixvajtjbq64/01/2014 Assessment & Plan (02/26/2023 12:13 PM EDT): Coronary artery disease is stable Continue GDMT- ASA, lipitor, labetolol continue risk factor modifications- heart healthy diet, regular exercise as tolerated and continue all medications. 136/67- 57 Diaphragmatic slixee2010/07/2013Low back pain10/07/2013Neoplasm of uncertain behavior of xqmmed5510/07/2013Obstructive sleep apnea xyicbhaq00/01/2014 Resolved Problems ProblemNoted DateDiagnosed DateResolved DateAcute systolic heart failure /07/2023 Encounters DateTypeDepartmentCare AbwoBnigojzzydy55/07/2025 11:05 AM ESTAncillary Procedure [facility] [address] [place] [phone] Pre-operative cardiovascular examination, ICD in place04/14/2025 10:35 AM EST Ancillary Procedure [facility] [address] [place] [phone] Pre-operative cardiovascular examination, ICD in place04/11/2025 9:30 AM EST Office Visit [address] [phone] Rudy Zendejas MD Chronic systolic heart failure (CMS/HCC) (Primary Dx); Coronary artery disease involving mcgrath coronary artery of mcgrath heart without angina pectoris; Nonhealing ulcer of heel (CMS/HCC); Status post insertion of drug eluting coronary artery stent; Primary hypertension; PAF (paroxysmal atrial fibrillation) (CMS/HCC); Mixed hyperlipidemia; ICD (implantable cardioverter-defibrillator) in place04/11/2025Orders Only [facility] [address] [place] [phone] Nkechi Armenta MA Ulcer of lower extremity, unspecified laterality, unspecified ulcer stage (CMS/HCC) (Primary Dx)03/15/2025 10:45 AM EDTAncillary Procedure [facility] [address] [place] [phone] Pre-operative cardiovascular examination, ICD in place03/15/2025Orders Only [facility] [address] [place] [phone] Gerardo Morris MD 03/14/2025 11:00 AM EDTOffice Visit [address] [phone] Rudy Zendejas MD Chronic systolic heart failure (CMS/HCC) (Primary Dx); Coronary artery disease involving mcgrath coronary artery of mcgrath heart without angina pectoris; Status post insertion of drug eluting coronary artery stent; Primary hypertension; PAF (paroxysmal atrial fibrillation) (CMS/HCC); Mixed hyperlipidemia; ICD (implantable cardioverter-defibrillator) in place02/14/2025 9:30 AM EDT Ancillary Procedure [facility] [address] [place] [phone] Pre-operative cardiovascular examination, ICD in place02/13/2025Orders Only [facility] [address] [place] [phone] Gerardo Morris MD 01/18/2025 9:30 AM EDTAncillary Procedure [address] [phone] Encounter for checking and testing of cardiac pacemaker pulse generator (battery)01/18/2025 9:15 AM EDTOffice Visit [address] [phone] Gerardo Morris MD A-fib (CMS/HCC) (Primary Dx)01/18/2025Orders Only [address] [phone] Nkechi Armenta MA Paroxysmal atrial fibrillation (CMS/HCC) (Primary Dx)from Last 3 Months Family History Medical HistoryRelationNameCommentsHeart attackFatherGER diseaseMotherRelation NameStatusCommentsFatherDeceasedMotherDeceased Social History Tobacco UseTypesPacks/DayYears UsedDateSmoking Tobacco: NeverSmokeless Tobacco: Never Tobacco Cessation:Counseling Given: Not Answered Alcohol UseStandard Drinks/WeekCommentsNot Currently0 (1 standard drink = 0.6 oz pure alcohol)[facility] UtilitiesAnswerDate RecordedIn the past 12 months [...] living in a group home (including now)? No04/21/2024Hunger Vital SignAnswerDate RecordedWithin the past 12 months, you worried that your food would run out before you got the money to buymore.Never true4Ran Out of Food in the Last YearNot on file4 CommentsNoSex and Gender InformationValueDate RecordedSex Assigned at Dqrxrx1409/09/2023 7:54 AM EDTLegal JopEaimsc62/29/2022 10:08 PM EDTGender PqmtwpqlIngsbh66/02/2024 7:54 AM EDTSexual OrientationHeterosexual or Straight 09/09/2023 7:54 AM EDT Last Filed Vital Signs Vital SignReadingTime TakenCommentsBlood Gtkccqyq802/6404/11/2025 9:31 AM EST Knmwg201504/11/2025 9:31 AM NTMUcpepfzuwwt68.3 ??C (97.4 ??F)04/22/2024 12:23 PM ESTRespiratory Rxbc212612/13/2024 4:00 PM EDTOxygen Mrhdhlubhm33%04/11/2025 9:31 AM ESTInhaled Oxygen Concentration--Mcxsme83.3 kg (219 lb)03/14/2025 11:32 AM CGUYebhyh057.5 cm (5' 2 )04/11/2025 9:31 AM ESTBody Mass Index40.0603/14/2025 11:32 AM EDT Plan of Treatment Health MaintenanceDue DateLast DoneCommentsCT Sbowincferbm47/17/1953Colonoscopy 1952olorectal Cancer Xaliawyiq13/17/1953FIT-DNA1952FIT1952 FOBT1952Medicare Annual Wellness (AWV)1950 4917Kpzteteraidkw37/17/1953 Diabetes: Retinopathy Kxtgaoqkm98/17/1963Depression Rmfwrndgc57/17/1965 Pneumococcal Vaccine: 50+ Years (1 of 2 - PCV)11/24/1971Adult Vrljwmb7011/23/1974 Hzuhldant43/17/1993Zoster Vaccines (1 of 2)2002Diabetes: Hemoglobin A1C 5106/19/2023, 09/10/2023, 07/03/2023OVID-19 Vaccine ( - 2024- season)2025Influenza Vaccine (#1)2025Fall Risk Vlsuodiun59/14/2025 04/22/2024HIB VaccinesAged OutNo longer eligible based on patient's age to complete this topicHPV VaccinesAged OutNo longer eligible based on patient's age to complete this topicIPV VaccinesAged OutNo longer eligible based on patient's age to complete this topicMeningococcal B VaccineAged OutNo longer eligible based on patient's age to complete this topicMeningococcal VaccineAged OutNo longer eligible based on patient's age to complete this topicRotavirus Vaccines Aged OutNo longer eligible based on patient's age to complete this topic Medical Devices ImplantedTypeAreaManufacturerDevice IdentifierShelf Expiration DateModel / Serial / LotStenTroy malone Mr 3.00 X 38 - [id number] Implanted:Qty: 1 on 10/08/2023 [facility] El[facility] StentBoston [id number]/19/2025 [id number] / / [id number],Synergy Mr 3.00 X 32 - [id number] Implanted:Qty: 1 on 10/08/2023 by [facility] Stent[place] [id number]/04/2026 [id number] / / [id number],Cardiac,Dual,Dr Malone Df4 - [id number] - [id number] Implanted:Qty: 1 on 12/13/2024 by [facility] Morris [facility]/A: [id number] / [id number] / Kenia S 60 Implanted:Qty: 1 on 12/13/2024 by [facility] Morris [facility]Lead[facility]: [id number] / [id number] / Juli Contreras S 45 - [id number] - [id number] Implanted:Qty: 1 on 12/13/2024 by [facility] Morris [facility]: [id number] / [id number] / Stent,Synergy Carlos,Marcos 3.5x28m - [id number] Implanted:Qty: 1 on 10/08/2023 by [facility]tentBdzilth-na-o-dith-hle health centeron [id number] / / [id number] Procedures Procedure NamePriorityDate/TimeAssociated DiagnosisCommentsCARDIAC DEVICE CHECK CHECK - BGLIOKWvkazev45/10/2025 10:40 AM EST Pre-operative cardiovascular examination, ICD in place CARDIAC DEVICE CHECK CHECK - NRJAPVUxvobpr55/10/2025 10:14 AM EST Pre-operative cardiovascular examination, ICD in place CARDIAC DEVICE CHECK - REMOTE - HFVXdssivh77/05/2025 12:00 AM ESTCARDIAC DEVICE CHECK - REMOTE - KZUUtvdxnw14/05/2025 12:00 AM ESTCARDIAC DEVICE CHECK CHECK - CWTEVXYqwtukb42/13/2025 10:23 AM EDT Pre-operative cardiovascular examination, ICD in place CARDIAC DEVICE CHECK - REMOTE ALERT - RQFFqkdrxb74/07/2025 12:00 AM EDTCARDIAC DEVICE CHECK CHECK - LCWITDBvtxpgb58/08/2025 9:11 PM EDT Pre-operative cardiovascular examination, ICD in place CARDIAC DEVICE CHECK - REMOTE - ZALOldfbqs93/07/2025 12:00 AM EDTCARDIAC DEVICE CHECK CHECK - HJUKXERwmtwsq03/14/2025 6:21 PM EDT Pre-operative cardiovascular examination, ICD in place CARDIAC DEVICE CHECK - IN CLINIC - ICD DUAL CHAMBER W/ UKGUTbwyyio50/13/2025 10:27 AM EDT Encounter for checking and testing of cardiac pacemaker pulse generator (battery) HEMOGLOBIN O9IIymxqiq15/11/2024 6:02 AM EST from Last 3 Months or Most Recently Relevant to Health Maintenance Results * CARDIAC DEVICE CHECK - REMOTE - ICD (04/18/2025 10:40 AM EST) Only the most recent of5 resultswithin the time period is included. Specimen (Source)Anatomical Location / LateralityCollection Method / Volume Collection TimeReceived Time Narrative Authorizing ProviderResult TypeResult StatusMidlothian ArturoCoosa [facility] IMPLANTABLE CARDIAC DEVICE PROCEDURESFinal ResultPerforming OrganizationAddressCity/State/ZIP Code Phone Number CPACS * Cardiac device check - Remote ICD (04/13/2025 12:00 AM EST) Only the most recent of3 resultswithin the time period is included. Anatomical RegionLateralityModalityOtherSpecimen (Source)Anatomical Location / LateralityCollection Method / VolumeCollection TimeReceived Time04/13/2025 Narrative Authorizing ProviderResult TypeResult StatusMidlothian ArturoCoosa [facility] IMPLANTABLE CARDIAC DEVICE PROCEDURESFinal Result * Cardiac device check - Remote alert ICD (03/15/2025 12:00 AM EDT)Anatomical RegionLateralityModalityOtherSpecimen (Source)Anatomical Location / Laterality Collection Method / VolumeCollection TimeReceived Time03/15/2025 Narrative Authorizing ProviderResult TypeResult StatusM[facility] IMPLANTABLE CARDIAC DEVICE PROCEDURESFinal Result * CARDIAC DEVICE CHECK - IN CLINIC - ICD DUAL CHAMBER W/ PROG (01/19/2025 10:27 AM EDT)Anatomical RegionLateralityModalityOtherSpecimen (Source)Anatomical Location / LateralityCollection Method / VolumeCollection TimeReceived Time Narrative 02/09/2025 11:44 PM EDT By using the attestations below, the signing clinician agrees that I have read and verify that the documentation has been personally reviewed by me and ensure that the documentation accurately reflects the encounter. Routine EP device follow up as per schedule. Please see attached note Authorizing ProviderResult TypeResult StatusMidlothian ArturoCoosa [facility] Center IMPLANTABLE CARDIAC DEVICE PROCEDURESFinal Result * (ABNORMAL) Hemoglobin A1c (04/19/2024 6:02 AM EST)ComponentValueRef RangeTest MethodAnalysis TimePerformed AtPathologist SignatureHemoglobin A1C9.7(H)4.0 - 6.0 %04/20/2024 8:20 AM [facility] ([facility])Estimated Average Glucose 232mg/dL04/20/2024 8:20 AM [facility] ([facility])Specimen (Source) Anatomical Location / LateralityCollection Method / VolumeCollection Time Received TimeBloodVenous blood specimen / UnknownArterial Line / Unknown 04/19/2024 6:02 AM EST04/19/2024 6:09 AM EST Narrative Authorizing ProviderResult TypeResult StatusJoshua COREY BLOOD ORDERABLESFinal ResultPerforming OrganizationAddressCity/State/ZIP CodePhone Number [facility] [address] [place], [place] [phone] from Last 3 Months or Most Recently Relevant to Health Maintenance Insurance Advance Directives * Full Code (Latest Code Status on File) Date ActivatedDate EbuhgevojloNfiwrudx12/11/2024 5:37 AM04/22/2024 8:34 PM * Full Code Date ActivatedDate InactivatedComments10/08/2023 2:09 PM10/09/2023 6:02 PM * Full Code Date ActivatedDate InactivatedComments09/09/2023 12:19 PM09/10/2023 8:54 PM * Full Code Date ActivatedDate InactivatedComments09/09/2023 12:19 PM09/09/2023 12:19 PM * Full Code Date ActivatedDate InactivatedComments07/02/2023 11:57 PM07/07/2023 3:26 PM Care Teams Team MemberRelationshipSpecialtyStart DateEnd Date Vlad Cesar MD [address] [facility] [address] [place] [address] PCP - General08/19/22
--- OUTSIDE RECORDS SUMMARY | 2025-04-19 13:20 | XMS_ITS | Encounter Summary ---
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 Name Role Phone Vlad Cesar MD Primary Care Provider [phone] Vlad Cesar MD Unavailable [phone] Friday, Marce ROUTE SUPERVISOR Unavailable [phone] FooteKarine ROUTE SUPERVISOR Unavailable Encounter Details DateTypeDepartmentCare Team (Latest Contact Info)Pamxjirmqmt24/23/2024Clinisync Result Encounter [facility] Unsolicited Vlad Cesar MD [address] [facility] [address] [place] [address] Social History Tobacco UseTypesPacks/DayYears UsedDateSmoking Tobacco: NeverSmokeless Tobacco: NeverAlcohol UseStandard Drinks/WeekCommentsNever0 (1 standard drink = 0.6 oz pure alcohol)Caffeine: 1-2 cups per [id number] Health LiteracyAnswerDate Recorded How often do you [...] relatives?Once a week02/23/2024How often do you attend hinduism or shinto services?Never02/23/2024o you belong to any clubs or organizations such as hinduism groups, unions, fraV[facility] or athletic groups, or school groups?Yes 02/23/2024How often do you attend meetings of the clubs or organizations you belong to?1 to 4 times per year02/23/2024re you , , , , never , or living with a partner?Never ejijvzn4102/23/2024 AUDIT-CAnswerDate RecordedQ1: How often do you have [...] at all 02/23/2024HQ-2AnswerDate RecordedPatient Health Questionnaire-2 Score0 12/31/2024[facility] [place] [facility] - Occupational Stress QuestionnaireAnswerDate [...] InformationValueDate RecordedSex Assigned at BirthNot on fileLegal QfcLqbsog61/15/2023 6:47 PM EDTGender IdentityNot on fileSexual OrientationNot on filedocumented as of this encounter Functional Status * AUDIT-C ScoreAnswerDate of QzaxnsyjpgVrboun480/16/2024 9:18 AM Jamshid Martines * Q1: How often do you have a drink containing alcohol?AnswerDate of Assessment VguhweNtgdy31/16/2024 9:18 AM Conrad Generic * Q2: How many drinks containing alcohol do you have on a typical day when you are drinking?AnswerDate of AssessmentAuthorPatient does not drink02/23/2024 9:18 AM EDTMychjayleen, Generic * Q3: How often do you have six or more drinks on one occasion?AnswerDate of RgupevbnlkWsvvobTqwdy88/16/2024 9:18 AM EDTMychart, Generic * Over the past 2 weeks, how often have you been bothered by any of the following problems?QuestionAnswerDate of AssessmentAuthorLittle interest or pleasure in doing thingsNot at all12/31/2024 10:31 AM Shannan Branch LPN Feeling down, depressed, or hopelessNot at all12/31/2024 10:31 AM Shannan Branch LPNPatient Health Questionnaire-2 Hbxql790 10:31 AM Shannan Branch LPN documented as of this encounter Plan of Treatment Not on file documented as of this encounter Procedures Procedure NamePriorityDate/TimeAssociated DiagnosisCommentsXR CHEST 2V07/01/2023 4:02 PM EST documented in this encounter Results * XR CHEST 2V (07/01/2023 4:02 PM EST)Anatomical RegionLateralityModalityOther Specimen (Source)Anatomical Location / LateralityCollection Method / Volume Collection TimeReceived Time07/01/2023 4:02 PM EST Narrative 07/01/2023 4:04 PM EST [facility] ?[address] ? [place] [address] ?XRay Report ? Signed ? Patient: LULU,LAURA A ?MR#: [id number] ?? : 1950 ?Acct:[id number] ?? Age/Sex: 72 / F ?ADM Date: 07/01/23 ?? Loc: RAD ? Attending Dr: VLAD CESAR ? Ordering Physician: VLAD CESAR ?? Date of Service: 07/01/23 ?? Procedure(s): XR chest 2V ?? Accession Number(s): [id number] ? cc: VLAD CESAR ? [facility] ? [address] ? [place] [address] ? Patient Name: ?? LAURA LAWSON ? MRN: [facility]:[id number] ? date: 1950 ?Sex: F ?? Assigned Patient Location: RAD ?? Current Patient Location: RAD ?? Accession/Order Number: [id number] ?? Exam Date: 07/01/2023 ??15:34 ?Report Date: 07/01/2023 ??16:02 ? At the request of: ?? VLAD ??CESAR ? Procedure: ??XR chest 2V ? EXAM: XR chest 2V ? HISTORY: acute bronchitis J20.9 ; technologist notes state bronchitis and ?? shortness of breath. ? COMPARISON: None. ? TECHNIQUE: PA and lateral views of the chest performed. ? FINDINGS: ?? The trachea is unremarkable. There is mild enlargement of the cardiac ?? mediastinal silhouette which is partially secured. There is mild atheromatous ?? calcification at the aortic arch. ? There are low lung volumes with moderate elevation of the left hemidiaphragm. ?? There is compressive atelectasis associated with the elevated left ?? hemidiaphragm. There are patchy densities within the left perihilar region ?? suggesting atelectasis and/or infiltrate. There is peribronchial cuffing at ?? both hilar regions and be associated with bronchitis. There is no pleural ?? effusion or pulmonary vascular congestion. ? There is no pneumothorax. The bony structures are osteopenic. There is no ?? acute ?? osseous adenopathy. There are moderate degenerative changes at the ?? acromioclavicular and glenohumeral articulations bilaterally. There are ?? endplate spurs along the spine. ? XR/XR chest 2V ?? IMPRESSION: ? There are low lung volumes with moderate elevation of the left hemidiaphragm. ?? There is compressive atelectasis associated with the elevated left ?? hemidiaphragm. ? There are patchy densities within the left perihilar region suggesting ?? atelectasis and/or infiltrate. There is also peribronchial cuffing within both ? hilar regions which can be associated with a bronchitis. ? Electronically authenticated by: GEREMIAS ??ARMANDO ?? Date: 07/01/2023 ??16:02 ? Dictated By: ?Geremias Roberts M.D. ? Signed By: ?07/01/234 ? DD/ 1602 ? TD/TT: ? Tile Roofer: Procedure Note Radiology, Radiologist, MD - 07/01/[address] [address] XRay Report Signed Patient: LAURA LAWSON [facility]#: [id number] : 1950cct:[id number] Age/Sex: 72 / FADM Date: 07/01/23 Loc: RAD Attending Dr: VLAD CESAR Ordering Physician: VLAD CESAR Date of Service: 07/01/23 Procedure(s): XR chest 2V Accession Number(s): [id number] cc: VLAD CESAR The [address] [address] Patient Name: LAURA LAWSON MRN: [facility]:[id number] date: 1950 Sex: F Assigned Patient Location: [facility] Current Patient Location: [facility] Accession/Order Number: [id number] Exam Date: 07/01/2023 15:34 Report Date: 07/01/2023 [...] associated with a bronchitis. Electronically authenticated by: GEREMIAS ROBERTS Date: 07/01/2023 16:02 Dictated By: Geremias Roberts M.D. Signed By:07/01/23 1604 DD/ 1602 TD/TT: Tile Roofer: Authorizing ProviderResult TypeResult StatusDanijason Cesar MDCLINISYNC IMAGING Final Result documented in this encounter Visit Diagnoses Not on filedocumented in this encounter Care Teams Team MemberRelationshipSpecialtyStart DateEnd Date Vlad Cesar MD [address] [place] [address] PCP - GeneralInternal Medicine10/21/22 Vlad Cesar MD [address] [place] [address] PCP - ACO Reach10/31/22FridayMarce LPN [address] [place] [address] Licensed Practical NurseFamily Medicine Karine Foote LPN [address] [place] [address] 12/23/24documented as of this encounter
--- OUTSIDE RECORDS SUMMARY | 2025-04-19 13:20 | XMS_ITS | Encounter Summary ---
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 Name Role Phone Vlad Cesar MD Primary Care Provider [phone] Reason for Referral * Consultation (Routine) - Pending ReviewSpecialtyDiagnoses / ProceduresReferred By ContactReferred To ContactWound Care Diagnoses Ulcer of lower extremity, unspecified laterality, unspecified ulcer stage (CMS/HCC) Rudy Zendejas MD [address] [facility] [place] [address] Phone: tel: fax: Referral IDStatusReasonStart DateExpiration DateVisits RequestedVisits [id number] Review Specialty Services Required Encounter Details DateTypeDepartmentCare Team (Latest Contact Info)Unfnrwtimdq23/03/2025Orders Only [facility] [address] [place] [address] Nkechi Armenta MA Ulcer of lower extremity, unspecified laterality, unspecified ulcer stage (CMS/HCC) (Primary Dx) Social History Tobacco UseTypesPacks/DayYears UsedDateSmoking Tobacco: NeverSmokeless Tobacco: NeverAlcohol UseStandard Drinks/WeekCommentsNot Currently0 (1 standard drink = 0.6 oz pure alcohol)[facility] UtilitiesAnswerDate RecordedIn the past 12 months [...] living in a senior care (including now)? No04/21/2024Hunger Vital SignAnswerDate RecordedWithin the past 12 months, you worried that your food would run out before you got the money to buymore.Never true04/21/2024an Out of Food in the Last YearNot on file04/21/2024 CommentsNoSex and Gender InformationValueDate RecordedSex Assigned at Lavjul04/07/2023 7:54 AM EDTLegal XicJyndhs89/29/2022 10:08 PM EDTGender VsloiakzXbqojf77/02/2024 7:54 AM EDTSexual OrientationHeterosexual or Straight 09/09/2023 7:54 AM EDTdocumented as of this encounter Functional Status * BPAnswerDate of BduuccuqlfFdzjvr776/6404/11/2025 9:31 AM Vandana Johnson MA * PulseAnswerDate of LuvandioldTdqyvu5959/03/2025 9:31 AM Vandana Johnson MA * Patient PositionAnswerDate of MdfhrljnzfGtaaftXycxycf39/03/2025 9:31 AM Vandana Aguillon MA * BPAnswerDate of PdvjedutpvRctjvm581/6404/11/2025 9:31 AM Vandana Johnson MA * PulseAnswerDate of FwldmorxhfIrmvav8795/03/2025 9:31 AM Vandana Johnson MA * YoI1KkrcjjZxhs of BczxvzaroiVqlrzl4680/03/2025 9:31 AM Vandana Johnson MA * BP LocationAnswerDate of AssessmentAuthorL[facility]04/11/2025 9:31 AM Vandana Johnson MA * Patient PositionAnswerDate of UguisilaxiRkwforInbfleu42/03/2025 9:31 AM Vandana Aguillon MA documented as of this encounter Plan of Treatment NameTypePriorityAssociated DiagnosesOrder ScheduleAmbulatory referral to Wound ClinicOutpatient ReferralRoutine Ulcer of lower extremity, unspecified laterality, unspecified ulcer stage ([facility]) Expected: 04/11/2025 (Approximate), Expires: 10/09/2025documented as of this encounter Procedures Procedure NamePriorityDate/TimeAssociated DiagnosisCommentsCARDIAC DEVICE CHECK - REMOTE - LQOKhoyhvj80/05/2025 12:00 AM ESTCARDIAC DEVICE CHECK - REMOTE - ICD Cqjnupf8904/13/2025 12:00 AM ESTdocumented in this encounter Results * Cardiac device check - Remote ICD (04/13/2025 12:00 AM EST)Anatomical Region LateralityModalityOtherSpecimen (Source)Anatomical Location / Laterality Collection Method / VolumeCollection TimeReceived Time04/13/2025 Narrative Authorizing ProviderResult TypeResult StatusGerardo Morris MDCV IMPLANTABLE CARDIAC DEVICE PROCEDURESFinal Result * Cardiac device check - Remote ICD (04/13/2025 12:00 AM EST)Anatomical Region LateralityModalityOtherSpecimen (Source)Anatomical Location / Laterality Collection Method / VolumeCollection TimeReceived Time04/13/2025 Narrative Authorizing ProviderResult TypeResult StatusGerardo Morris MDCV IMPLANTABLE CARDIAC DEVICE PROCEDURESFinal Result documented in this encounter Visit Diagnoses Diagnosis Ulcer of lower extremity, unspecified laterality, unspecified ulcer stage (CMS/HCC)- Primary documented in this encounter Care Teams Team MemberRelationshipSpecialtyStart DateEnd Date Vlad Cesar MD [address] [facility] [address] [place] [address] PCP - General08/19/22documented as of this encounter
--- OUTSIDE RECORDS SUMMARY | 2025-04-19 13:21 | XMS_ITS | Clinical Summary ---
Author Organization [facility] Address [address] [place] [address] Care Team Providers Care Rn Enterostomal Name Role Phone Vlad Cesar MD Primary Care Provider [phone] Vlad Cesar MD Unavailable [phone] Karine Foote LPN Unavailable Allergies Active AllergyReactionsCriticalityNoted DateCommentsClindamycinItching,RashLow 03/28/20257701IbyocadnxcJvirgvzoofzyRus64/22/2812Jdmzurzmxcx22/14/2024 Other Reaction(s): Unknown ZlogjabbVophsSgi03/22/2023 Medications MedicationSigDispense QuantityRefillsLast FilledStart DateEnd DateStatus pen needle 31G x 6 mm misc 2 (two) times a day. Use as instructedActive nitroglycerin (Nitrostat) 0.[address] 0.3 mg under the tongue every 5 (five) minutes if needed for chest pain. Active insulin syringe-needle U-100 31G X 5/16 0.5 mL misc Inject under the skin 2 (two) times a day. Use as instructedActive potassium chloride CR (Klor-Con M20) 20 MEQ ER tablet Indications:HypokalemiaTake 20 mEq by mouth in the morning and 20 mEq before bedtime. Do not crush or chew..Active insulin pen needle (BD Pen Needle Cass 2nd Gen) 32G x 4 mm misc Indications:Type 2 diabetes mellitus with hyperglycemia, with long-term current use of insulin (HCC)USE DIRECTED ONCE DAILY 100 each 302/29/2024Active BD Insulin Syringe U/F 31G X 516 1 ML [facility] [place]ications:Type 2 diabetes mellitus with hyperglycemia, with long-term current use of insulin (HCC)USE DIRECTED UNDER THE SKIN TWO TIMES DAILY 180 each 4Active spironolactone (Aldactone) 25 MG tablet Indications:Hypertension, unspecified typeTake 1 tablet (25 mg) by mouth Daily 100 tablet 4Active apixaban (Eliquis) 5 MG tablet Take 5 mg by mouth in the morning and 5 mg before bedtime.Active ticagrelor (Brilinta) 90 MG tablet Take 90 mg by mouth in the morning and 90 mg before bedtime.Active nystatin (Klayesta) 278024 UNIT/GM powder Indications:IntertrigoApply topically 2 (two) times a day 60 g 506Active atorvastatin (Lipitor) 80 MG tablet Indications:Hyperlipidemia, unspecified hyperlipidemia typeTAKE 1 TABLET BY MOUTH EVERY DAY AT BEDTIME 100 tablet 5Active sacubitril-valsartan (Entresto) 24-26 MG tablet Indications:Chronic systolic congestive heart failure (HCC)1/2 tablet by mouth twice a day 90 tablet 5Active ezetimibe (Zetia) 10 MG tablet Indications:Type 2 diabetes mellitus with diabetic polyneuropathy, with long- term current use of insulin (HCC)Take 1 tablet (10 mg) by mouth Daily 100 tablet 5Active metoprolol succinate XL (Toprol-XL) 25 MG 24 hr tablet Indications:Hypertension, unspecified typeTake 1 tablet (25 mg) by mouth Daily 100 tablet 5Active allopurinol (Zyloprim) 300 MG tablet Indications:Gout, unspecified cause, unspecified chronicity, unspecified site Take 1 tablet (300 mg) by mouth Daily 100 tablet 5Active meloxicam (Mobic) 15 MG tablet Indications:Chronic bilateral low back pain, unspecified whether sciatica presentTake 1 tablet (15 mg) by mouth Daily 100 tablet 5Active dapagliflozin (Farxiga) 5 MG Indications:Type 2 diabetes mellitus with diabetic polyneuropathy, with long- term current use of insulin ([facility])Take 1 tablet (5 mg) by mouth Daily 100 tablet 5Active insulin glargine (Toujeo Max SoloStar) 300 UNIT/ML injection Inject 20 Units under the skin at bedtimeActive [email or web address] Ultra test strip Indications:Type 2 diabetes mellitus with hyperglycemia, with long-term current use of insulin ([facility])TEST ONCE IN THE MORNING,IN THE EVENING,AND BEFORE BEDTIME*E11.65* 100 strip 1055Active baclofen (Lioresal) 10 MG tablet Indications:Muscle spasmTAKE 1 TABLET IN THE MORNING AND 1 TABLET BEFORE BEDTIME 180 tablet 5Active torsemide (Demadex) 20 MG tablet Indications:Chronic systolic congestive heart failure (HCC),Peripheral venous insufficiencyTake 1.5 tablets (30 mg) by mouth Daily 45 tablet 1105012/23/2025ctive Additional Information Patient taking differently: 20 mgOral Daily, Reported on 03/16/2025 Continuous Glucose Sensor (Dexcom G7 Sensor) misc Indications:Type 2 diabetes mellitus with diabetic polyneuropathy, with long- term current use of insulin ([facility])1 patch every 14 (fourteen) days 6 each /1017276Active amiodarone (Pacerone) 200 MG tablet Take by mouth5Active doxycycline (Vibramycin) 100 MG capsule Take 100 mg by mouth in the morning and 100 mg before bedtime.5Active omeprazole (PriLOSEC) [address] capsule Indications:Gastroesophageal reflux disease, unspecified whether esophagitis presentTake 1 capsule (40 mg) by mouth in the morning. 90 capsule 5Active omeprazole (PriLOSEC) [address] capsule Indications:Gastroesophageal reflux disease, unspecified whether esophagitis presentTake 1 capsule (40 mg) by mouth in the morning. Take before meals. Do not crush or chew.. 100 capsule Discontinued Active Problems ProblemNoted DateDiagnosed OjbqTbkxre78/17/0504Vkrzfghcspqyid83/03/2025Non compliance w medication wwkqoet1809/13/2024Moderate nonproliferative diabetic retinopathy of both eyes without macular edema associated with type 2 diabetes acsdabwt94/01/2025History of DVT in /10/2025Impaired skin integrity 07/19/2024 Overview (08/13/2024): Problem added on documentation of skin impairments. Mild mitral njebdxtgqqlwk56/31/2025ognitive communication vadmkou1207/08/2024 Dysphagia, oral phase07/08/2024Muscle weakness (generalized)06/17/2024quired absence of both cervix and urosgg1606/14/2024arpal tunnel syndrome, left upper limb06/14/20240724Gkxmmkdgzlf01/06/2025Other chronic pain06/14/2024Pain in left knee 06/14/2024Presence of coronary angioplasty implant and graft06/14/2024ute cystitis without prsgozeed11/01/2025hronic kidney disease, stage 3a06/09/2024 Type 2 diabetes mellitus with diabetic chronic kidney wayrmgw8006/09/2024 Unspecified systolic (congestive) heart ftetubj2006/09/2024ngina pectoris 04/19/2024Spinal stenosis of lumbar nbvrky2512/19/2023oronary artery disease involving zuni coronary artery of zuni heart without angina pectoris 09/24/2023cquired qmrvqhaflrikvdjrp44/07/2023S/P drug eluting coronary stent upnkhibcb25/07/2023aresthesia of skin01/13/2023rimary osteoarthritis of both knees01/13/2023Lumbar rpuovxppuajrm66/07/2023iastolic grygajzhgdo56/07/2023 Localized edema10/28/2022ERD (gastroesophageal reflux disease)10/15/2022 Dpigwogy09/09/5609Lhmu42/09/4365Hfjkysqicctdnr22/09/9469Gmobzxhwvfvl38/09/2023 Kidney zjruji1110/15/2022ngiomyolipoma of srtwst6410/15/2022Obstructive sleep apnea opvvohal62/09/2023Thyroid atmhtua1510/15/2022Type 2 diabetes mellitus with diabetic polyneuropathy, with long-term current use of fhfvtms6910/15/2022 Umbilical hernia without obstruction and without kwngocrz35/09/2023ifficulty jiwmrey8404/24/2021ure axhuwcivvlmjjlrpulgl18/14/5954Lzywcsfpogpq77/30/2020 Peripheral venous zsoebkkigjaxm96/03/2020Ulcer of foot due to type 2 diabetes lmlglukr91/18/2020Skin sensation vksglgzsocd16/29/2020Osteoarthritis of knee 12/29/2017Renal mass05/28/2017Generalized nudfsvzovnknqg66/11/2017Long term current use of zmhdkpn7307/12/2015History of uavigidrnlfp35/03/2016Pulmonary function studies iwgfuxfn96/27/2014Morbid ehtfxak9010/08/2013History of arthritis 10/08/2013 Overview (01/13/2023): OF THE KNEE Neoplasm of uncertain behavior of bfspwt6110/07/2013Low back pain10/07/2013 Resolved Problems ProblemNoted DateDiagnosed DateResolved DateObesity, class 504/12/2024 Acute on chronic diastolic heart /reast cancer screening by zkjknyivd67/06/2024Diabetic ulcer of calf associated with type 2 diabetes ndwaoryz35/4Coronary artery disease (CAD) elfmxmaj86/4Polyneuropathy due to type 2 diabetes mellitus / Encounters DateTypeDepartmentCare KmlvOafqeuwkqkw76/07/2025[facility] [address] [place] [address] Vlad Cesar MD Gastroesophageal reflux disease, unspecified whether esophagitis present 04/14/2025Patient Outreach [facility] [address] [place] [address] Radha Holt LPN 04/06/2025linisync Result Encounter [facility] External Department Unsolicited Provider, Generic External Data 04/05/2025Patient Outreach [facility] [address] [place] [address] Radha Holt LPN 04/04/2025[facility] [address] [place] [address] Vlad Cesar MD 03/31/2025bstract [facility] [address] [place] [address] Vlad Cesar MD 03/30/2025bstract [facility] [place] [facility] [address] [place] [address] Vlad Cesar MD 03/30/2025bstract [facility] [place] [facility] [address] [place] [address] Vlad Cesar MD 03/29/2025Patient Outreach [facility] [address] [place] [address] Jannet Mensah LSW 03/28/2025Patient Outreach [facility] [address] [place] [address] Karine Foote LPN 03/28/2025bstract [facility] [place] [facility] [address] [place] [address] Vlad Cesar MD 03/24/2025Patient Outreach [facility] [address] [place] [address] Karine Foote LPN 03/24/2025Telephone [facility] [place] [facility] [address] [place] [address] Shannan Villanueva LPN 03/16/2025linisync Result Encounter [facility] External Department Unsolicited Provider, Generic External Data 03/16/2025Patient Outreach [facility] [address] [place] [address] Karine Foote LPN 03/16/2025bstract [facility] [place] [facility] [address] [place] [address] Vlad Cesar MD 03/16/2025bstract [facility] [address] [place] [address] Karine Foote LPN 03/15/2025bstract [facility] [place] [facility] [address] [place] [address] Vlad Cesar MD 03/15/2025bstract [facility] [place] [facility] [address] [place] [address] Vlad Cesar MD 03/02/2025 9:30 AM EDTOffice Visit [facility] [place] [facility] [address] [place] [address] Vlad Cesar MD Chronic systolic congestive heart failure (HCC); Reduced mobility; Type 2 diabetes mellitus with diabetic polyneuropathy, with long-term current use of insulin (HCC); Paroxysmal atrial fibrillation (HCC)03/02/2025amboo flowsheet [facility] [place] [facility] [address] [place] [address] Vlad Cesar MD 03/02/20254303Axbjhs32/23/2025bstract [facility] [place] [facility] [address] [place] [address] Vlad Cesar MD 03/01/2025bstract [facility] [place] [facility] [address] [place] [address] Vlad Cesar MD 02/15/2025bstract [facility] [place] [facility] [address] [place] [address] Vlad Cesar MD 02/15/2025bstract [facility] [place] [facility] [address] [place] [address] Vlad Cesar MD 02/14/2025linisync Result Encounter [facility] External Department Unsolicited Provider, Generic External Data 02/11/2025 10:30 AM EDTOffice Visit [facility] [place] [facility] [address] [place] [address] Vlad Cesar MD Type 2 diabetes mellitus with diabetic polyneuropathy, with long-term current use of insulin (HCC)02/11/20255621Ylryis12/04/2025bstract [facility] [place] [facility] [address] [place] [address] Vlad Cesar MD 01/31/2025bstract [facility] [place] [facility] [address] [place] [address] Vlad Cesar MD 01/31/2025bstract [facility] [place] [facility] [address] [place] [address] Vlad Cesar MD 01/20/2025bstract [facility] [place] [facility] [address] [place] [address] Vlad Cesar MD 01/18/2025bstract [facility] [place] [facility] [address] [place] [address] Vlad Cesar MD 01/17/2025bstract [facility] [place] [facility] [address] [place] [address] Vlad Cesar MD 01/17/2025bstract [facility] [place] [facility] [address] [place] [address] Vlad Cesar MD from Last 3 Months Immunizations ImmunizationAdministration DatesNext DueUnknown outside fgrzduvuhqlj41/08/2025 Family History Medical HistoryRelationNameCommentsDiabetesFatherRichard E LeberHeart disease FatherRichard E LeberHypertensionFatherRichard E Lebermyocardial infarction FatherRichard E LeberDiabetesFather's SisterNancy LoganCancerMaternal GrandfatherDeep Yuniel loGERD diseaseMotherSkin cancerMotherCancerMother's SisterCherelle Meraz Known ProblemsSisterRelationNameStatusCommentsFather Sen E LeberDeceasedFather's SisterNancy Kim GrandfatherDeep williamsonMotherAliveMother's SisterCherelle Sandoval Social History Tobacco UseTypesPacks/DayYears UsedDateSmoking Tobacco: NeverSmokeless Tobacco: Never Tobacco Cessation:Counseling Given: Yes Alcohol UseStandard Drinks/WeekCommentsNever0 (1 standard drink = 0.6 oz pure alcohol)Caffeine: 1-2 cups per gbsV3597 Health LiteracyAnswerDate RecordedHow often do you need to have someone [...] relatives?Once a week02/23/2024How often do you attend anglican or hoahaoism services?Never4Do you belong to any clubs or organizations such as anglican groups, unions, fraternal or athletic groups, or school groups?Yes 02/23/2024How often do you attend meetings of the clubs or organizations you belong to?1 to 4 times per year02/23/2024re you , , , , never , or living with a partner?Never mtstrmw7302/23/2024 AUDIT-CAnswerDate RecordedQ1: How often do you have [...] at all 02/23/2024HQ-2AnswerDate RecordedPatient Health Questionnaire-2 Score0 12/31/2024Fin[facility] - Occupational Stress QuestionnaireAnswerDate [...] steady place to sleep or slept in peacehealther (including now)?No01/12/2023Housing Stability Vital Sign AnswerDate RecordedIn the last 12 months, was there a time when you were not able to pay the mortgage or rent on time?No02/23/2024Number of Times Moved in the Last YearNot on file02/23/2024t any time in the past 12 months, were you homeless or living in a retirement (including now)?No02/23/2024Comments UnknownSex and Gender InformationValueDate RecordedSex Assigned at BirthNot on fileLegal MatTxelil72/15/2023 6:47 PM EDTGender IdentityNot on fileSexual OrientationNot on file Last Filed Vital Signs Vital SignReadingTime TakenCommentsBlood Suclsddq526/6609 9:28 AM EDT Zzkqk413503/02/2025 9:28 AM EDTTemperature--Respiratory Dnjh638612/31/2024 10:42 AM EDTOxygen Gxggvphgdt310%03/02/2025 9:28 AM EDTInhaled Oxygen Concentration-- Ojbvil84.3 kg (219 lb)03/02/2025 9:28 AM LTNOwzbtg206.5 cm (5' 2 )03/02/2025 9:28 AM EDTBody Mass Index40.0603/02/2025 9:28 AM EDT Plan of Treatment Health MaintenanceDue DateLast DoneCommentsCT Vtdwixmvlofr73/17/1953olonoscopy 1952FIT-DNA1952FIT1952FOBT1950 1951Xymcchoslkgfa68/17/1951 Pneumococcal Vaccine: 65+ Years (1 of 2 - PCV)11/24/1971Diabetes: Urine Protein Rrkifzind27/07/2022, 03/15/20191162Lyvufumkc47/27/202506/, 11/06/2022, 11/06/2022, Additional history existsCOVID-19 Vaccine ( - season)2025Influenza Vaccine (#1)2025Diabetes: Hemoglobin A1C 5003/02/2025, 02/11/2025, 12/23/2024, Additional history exists Colorectal Cancer Fqmlzkjvj45/28/2026Postponed from 1950 (Patient Refused) Diabetes: Retinopathy Xmakjjbri71/24/080929/, 11/18/2023, 10/24/2022, Additional history exists Procedures Procedure NamePriorityDate/TimeAssociated EntoivcjeXlatrauvLGQ51/29/2025 2:06 PM EDT ITP03/16/2025 9:02 AM EDT POCT GLYCATED HEMOGLOBIN, KWFJDZxttqmy17/24/2025 10:58 AM EDT Type 2 diabetes mellitus with diabetic polyneuropathy, with long-term current use of insulin (HCC) ITP02/14/2025 7:48 AM EDT POCT GLYCATED HEMOGLOBIN, RTBRIVlbbmtf64/05/2025 11:08 AM EDT Type 2 diabetes mellitus with diabetic polyneuropathy, with long-term current use of insulin (HCC) DIABETIC RETINOPATHY SCREENING - OU - BOTH YXZBTivagci12/24/2025 MM TOMOSYNTHESIS SCREENING BI12/04/2023 3:44 PM EDT MICROALBUMIN / CREATININE URINE QLDLMDscofie41/02/2023 10:58 AM EDT Type 2 diabetes mellitus with other specified complication, with long-term current use of insulin (HCC) from Last 3 Months or Most Recently Relevant to Health Maintenance Results * ITP (04/06/2025 2:06 PM EDT) Only the most recent of3 resultswithin the time period is included. Anatomical RegionLateralityModalityOtherSpecimen (Source)Anatomical Location / LateralityCollection Method / VolumeCollection TimeReceived Time04/06/2025 2:06 PM EDT Narrative 04/06/2025 7:29 PM EDT [facility] ?[address] ? [place] [address] ?Cardiac Rehab Report ? Signed ? Patient: LULU,LAURA A ?MR#: [id number] ?? : 1950 ?Acct:[id number] ?? Age/Sex: 74 / F ?ADM Date: 10/06/25 ?? Loc: CR ? Attending Dr: Gerardo Morris M.D. ? Ordering Physician: Gerardo Morris M.D. ?? Date of Service: 04/06/25 ?? Procedure(s): ITP ?? Accession Number(s): [id number] ? cc: ?[facility] ? Test Date: ?2025-04-06 ?? Pat Name: ? LAURA LAWSON ?Department: ? Room: ? - ?? Gender: ? Female ? Inspector Watch Train: ? : ?1950 ? Requested By: GERARDO MORRIS ?? Order Number: [id number] ?Reading : ?? JULITO ??Josh HERNANDEZ ? Interpretive Statements ?? Session Date: ? Electronically Signed On 04-06-2025 19:29:21 EDT by JULITO ??Josh HERNANDEZ ? Dictated By: ?JULITO HERNANDEZ ? Signed By: ?04/06/25 1929 ? DD/ 1406 ? TD/TT: ? Traffic Engineering Technician: Procedure Note Radiology, Radiologist, MD - 04/06/2025 [place] [address] Cardiac Rehab Report Signed Patient: LAURA LAWSON AMR#: [id number] : 3Acct:[id number] Age/Sex: 74 / FADM Date: 03/14/25 Loc: CR Attending Dr: Gerardo Morris M.D. Ordering Physician: Gerardo Morris M.D. Date of Service: 04/06/25 Procedure(s): ITP Accession Number(s): [id number] cc: [facility] Test Date: 2025-04-06 Pat Name: LAURA LAWSON Department: Room: - Gender: Female Inspector Watch Train: : 1950 Requested By: GERARDO MORRIS Order Number: [id number] Veronica MD: JULITO HERNANDEZ M.D. Interpretive Statements Session Date: Electronically Signed On 04-06-2025 19:29:21 EDT by JULITO HERNANDEZ M.D. Dictated By: JULITO HERNANDEZ Signed By:04/06/251928 DD/ 140 TD/TT: Traffic Engineering Technician: Authorizing ProviderResult TypeResult StatusGeneric External Data Provider CLINISYNC IMAGINGFinal Result * POCT Glycated hemoglobin, total (03/02/2025 10:58 AM EDT) Only the most recent of2 resultswithin the time period is included. ComponentValueRef RangeTest MethodAnalysis TimePerformed AtPathologist Signature Hemoglobin A1C10.9Specimen (Source)Anatomical Location / LateralityCollection Method / VolumeCollection TimeReceived JlwgXrfmp16/24/2025 10:58 AM EDT Narrative Authorizing ProviderResult TypeResult Yony Cesar MDPOINT OF CARE TEST ENTER/EDIT ORDERABLESFinal Result * (ABNORMAL) Diabetic Retinopathy Screening - OU - Both Eyes (11/30/2024) ComponentValueRef RangeTest MethodAnalysis TimePerformed AtPathologist SignatureRESULTSabnAnatomical RegionLateralityModalityHeadOtherSpecimen (Source)Anatomical Location / LateralityCollection Method / VolumeCollection TimeReceived Time11/30/2024 Narrative Authorizing ProviderResult TypeResult StatusVlad Cesar MDOPHTH PHOTOGRAPHY Final Result * MM TOMOSYNTHESIS SCREENING BI (12/04/2023 3:44 PM EDT)Anatomical Region LateralityModalityOtherSpecimen (Source)Anatomical Location / Laterality Collection Method / VolumeCollection TimeReceived Time12/04/2023 3:44 PM EDT Narrative 12/04/2023 3:45 PM EDT [facility] ?[address] ? [place] [address] ? Mammography Report ? Signed ? Patient: LULU,LAURA A ?MR#: [id number] ?? : 1950 ?Acct:[id number] ?? Age/Sex: 73 / F ?ADM Date: 06/27/24 ?? Loc: MAMMO ? Attending Dr: VLAD CESAR ? Ordering Physician: VLAD CESAR ? Results: ? Date of Service: 12/04/23 ?Follow Up: ? Procedure(s): MM tomosynthesis screening BI ?? Accession Number(s): [id number] ? cc: VLAD CESAR ? Patient Name: ? LAURA LAWSON ? MR#: [id number] ? : 1950 ? Exam Date: 12/04/2023 ?? Ordering Doctor: DR VLAD CESAR M.D. ? RADIOLOGY REPORT ? PROCEDURE: ? MM TOMOSYNTHESIS SCREENING BI ? COMPARISON: ? MG MAMM SCREEN 3D YANETH CAD, 01/10/2021. ??MG MAMM SCREEN 3D YANETH ?? CAD, 11/06/2022. ? INDICATIONS: ? Screening for malignant neoplasm ? Calculator Name ? NCI Breast Cancer Risk Assessment Tool ?? 5 Year Breast Cancer Risk ? 1.90% ?? Lifetime Breast Cancer Risk ? 5.40% ?? Personal Breast Cancer ?No ?? Personal Ovarian Cancer ? No ?? Treatments ? None ?? Family Cancers ? None ? LOCATION: ? [facility] ? BREAST COMPOSITION: ? There are scattered areas of fibroglandular density. ? FINDINGS: ? DIAGNOSTIC CATEGORY 2--BENIGN FINDING. NO CHANGE FROM COMPARISON. ? Scattered benign-appearing calcifications are present. ??Scattered ?? benign-appearing lymph nodes are present. ??Multiple serpiginous vessels, ?? grossly stable ? RIGHT BREAST: ??No significant suspicious finding. ? LEFT BREAST: ??No significant suspicious finding. ? RECOMMENDATIONS: ? ROUTINE MAMMOGRAM AND CLINICAL EVALUATION IN 12 MONTHS. ? PLEASE NOTE: ??A NORMAL MAMMOGRAM DOES NOT EXCLUDE THE POSSIBILITY OF BREAST ?? CANCER. ??A CLINICALLY SUSPICIOUS PALPABLE LUMP SHOULD BE BIOPSIED. ? Dictated by: Jordy Joe MD on 12/04/2023 at 15:40 ? Approved by: Jordy Joe MD on 12/04/2023 at 15:43 ? Dictated By: ?Jordy Joe M.D. ? Signed By: ?12/04/23 1545 ? DD/ 1544 ? TD/TT: ? Traffic Engineering Technician: Procedure Note Radiology, Radiologist, MD - 12/04/2023 [place] [address] Mammography Report Signed Patient: LAURA LAWSON AMR#: [id number] : 1950cct:[id number] Age/Sex: 73 / FADM Date: 12/04/23 Loc: MAMMO Attending Dr: VLAD CESAR Ordering Physician: VLAD CESARResults: Date of Service: 12/04/23Follow Up: Procedure(s): MM tomosynthesis screening BI Accession Number(s): [id number] cc: VLAD CESAR Patient Name: LAURA LAWSON MR#: [id number] : 1950 Exam Date: 12/04/2023 Ordering Doctor: [...] Treatments None Family Cancers None LOCATION: [facility] BREAST COMPOSITION: There are scattered areas [...] M.D. Signed By:12/04/23 1545 DD/ 1544 TD/TT: Traffic Engineering Technician: Authorizing ProviderResult TypeResult StatusDanijason Cesar MDCLINISYNC IMAGING Final Result * (ABNORMAL) Microalbumin / creatinine urine ratio (03/10/2023 10:58 AM EDT) ComponentValueRef RangeTest MethodAnalysis TimePerformed AtPathologist SignatureCREATININE, RANDOM CRGRI0232 - 275 mg/dLQUESTALBUMIN, URINE30.3See Note: mg/dLQUESTComment: Reference Range: Reference Range Not established Results verified by repeat analysis on dilution. ALBUMIN/CREATININE RATIO, RANDOM YJZVG639(H)<30 mcg/mg creatQUESTComment: The ADA defines abnormalities in albumin excretion as follows: Albuminuria Category ?Result (mcg/mg creatinine) Normal to Mildly increased <30 Moderately increased ? 30-299 Severely increased > OR = 300 The ADA recommends that at least two of three specimens collected within a 3-6 month period be abnormal before considering a patient to be within a diagnostic category. Specimen (Source)Anatomical Location / LateralityCollection Method / Volume Collection TimeReceived TimeUrineUrine specimen obtained by clean catch procedure / Mlsueaw9703/10/2023 10:58 AM EDT1 10:59 AM EDT Narrative Resulting Agency Comment Performing Organization Information ?Site ID: QPT ?Name: [facility] ?Address: [address] [place] [address], [address] [place] [id number] ?Director: Haider Gonzalez MD Authorizing ProviderResult TypeResult StatusDamelissa Cesar MDLAB URINE ORDERABLESFinal ResultPerforming OrganizationAddressCity/State/ZIP CodePhone Number [facility]ST from Last 3 Months or Most Recently Relevant to Health Maintenance Insurance Care Teams Team MemberRelationshipSpecialtyStart DateEnd Vlad Cesar MD [address] [place] [address] PCP - GeneralInternal Medicine10/21/22 Vlad Cesar MD [address] [place] [address] PCP - ACO Reach10/31/22 Karine Foote LPN [address] [place] [address] 12/23/24
--- OUTSIDE RECORDS SUMMARY | 2025-04-19 13:21 | XMS_ITS | Encounter Summary ---
Author Organization [facility] Address [address] [place] [address] Care Team Providers Care Roll Forming Supervisor Name Role Phone Vlad Cesar MD Primary Care Provider [phone] Vlad Cesar MD Unavailable [phone] Friday, Marce CRUSHING FOREMAN Unavailable [phone] Karine Foote CRUSHING FOREMAN Unavailable Encounter Details DateTypeDepartmentCare Team (Latest Contact Info)Dmkapkjaerj59/14/2024Clinisync Result Encounter [facility] External Department Unsolicited Provider, Generic External Data Social History Tobacco UseTypesPacks/DayYears UsedDateSmoking Tobacco: NeverSmokeless Tobacco: NeverAlcohol UseStandard Drinks/WeekCommentsNever0 (1 standard drink = 0.6 oz pure alcohol)Caffeine: 1-2 cups per [id number] Health LiteracyAnswerDate Recorded How often do you [...] relatives?Once a week02/23/2024How often do you attend zoroastrianism or mormonism services?Never02/23/2024o you belong to any clubs or organizations such as zoroastrianism groups, unions, fraHitchedPic or athletic groups, or school groups?Yes 02/23/2024How often do you attend meetings of the clubs or organizations you belong to?1 to 4 times per year02/23/2024re you , , , , never , or living with a partner?Never bpuaadw8202/23/2024 AUDIT-CAnswerDate RecordedQ1: How often do you have [...] at all 02/23/2024HQ-2AnswerDate RecordedPatient Health Questionnaire-2 Score0 12/31/2024[facility] [place] [facility] - Occupational Stress QuestionnaireAnswerDate [...] steady place to sleep or slept in [facility] (including now)?No01/12/2023Housing Stability Vital Sign AnswerDate RecordedIn the last 12 months, was there a time when you were not able to pay the mortgage or rent on time?No02/23/2024Number of Times Moved in the Last YearNot on file02/23/2024t any time in the past 12 months, were you homeless or living in a [facility] (including now)?No02/23/2024Comments UnknownSex and Gender InformationValueDate RecordedSex Assigned at BirthNot on fileLegal TwlRxipbg54/15/2023 6:47 PM EDTGender IdentityNot on fileSexual OrientationNot on filedocumented as of this encounter Functional Status * AUDIT-C ScoreAnswerDate of CadkopwskkVzpraj300/16/2024 9:18 AM Conrad, Generic * Q1: How often do you have a drink containing alcohol?AnswerDate of Assessment XkurwqRulyy37/16/2024 9:18 AM Conrad, Generic * Q2: How many drinks containing alcohol do you have on a typical day when you are drinking?AnswerDate of AssessmentAuthorPatient does not drink02/23/2024 9:18 AM Jamshid Martines * Q3: How often do you have six or more drinks on one occasion?AnswerDate of EvdpnxryntWhhezvKomqu45/16/2024 9:18 AM Jamshid Martines * Over the past 2 weeks, how often have you been bothered by any of the following problems?QuestionAnswerDate of AssessmentAuthorLittle interest or pleasure in doing thingsNot at all12/31/2024 10:31 AM Shannan Branch LPN Feeling down, depressed, or hopelessNot at all12/31/2024 10:31 AM Shannan Branch LPNPatient Health Questionnaire-2 Tvywg308 10:31 AM Shannan Branch LPN documented as of this encounter Plan of Treatment Not on file documented as of this encounter Procedures Procedure NamePriorityDate/TimeAssociated DiagnosisCommentsCA ECHO DOPPLER WYSJNKHH46/14/2024 7:57 PM EST documented in this encounter Results * CA ECHO DOPPLER COMPLETE (07/23/2023 7:57 PM EST)Anatomical RegionLaterality ModalityOtherSpecimen (Source)Anatomical Location / LateralityCollection Method / VolumeCollection TimeReceived Time07/23/2023 7:57 PM EST Narrative 07/23/2023 7:58 PM EST [facility] ?[address] ? [place] [address] ? Cardiology Report ? Signed ? Patient: LAURA LAWSON ?MR#: [id number] ?? : 1950 ?Acct:[id number] ?? Age/Sex: 72 / F ?ADM Date: 07/23/23 ?? Loc: CARD ? Attending Dr: NIRAJ GONZALES APRN ? Ordering Physician: NIRAJ GONZALES APRN ?? Date of Service: 07/23/23 ?? Procedure(s): CA echo doppler complete ?? Accession Number(s): [id number] ? cc: VLAD CESAR ; NIRAJ GONZALES APRN ? Patient Name: ? LAURA LAWSON ? MR#: [id number] ? : 1950 ? Exam Date: 07/23/2023 ?? Ordering Doctor: NIRAJ GONZALES BREWERY WORKER ? ECHOCARDIOGRAM REPORT ? PROCEDURE: ? CA ECHO DOPPLER COMPLETE ? INDICATIONS: ? Acute on chronic diastolic (congestive) heart failure ? COMPARISON: ? None. ? DESCRIPTION: ? COMPLETE ECHOCARDIOGRAM Real-time transthoracic ?? echocardiography with 2D, M-mode, spectral and color flow Doppler performed. ? QUALITY: ? Technical quality was good. ? LEFT VENTRICLE: ? Normal chamber size. Moderate concentric left ventricular ?? hypertrophy. Global left ventricular systolic function is moderately to ?? severely decreased. ??Abnormal septal motion is likely due to bundle branch ?? block. ?? LV EF: ? Moderately to severely reduced left ventricular ejection fraction, ?? (30%). ?? DIASTOLIC: ? ATRIAL SEPTUM: ? LEFT ATRIUM: ? Severe dilatation. ?? RIGHT ATRIUM: ? Mild dilatation. ?? RIGHT VENTRICLE: ? Normal chamber size. Normal right ventricular systolic ?? function. ? TRICUSPID VALVE: Normal mobility and thickness. No stenosis with trivial ?? regurgitation. No evidence of pulmonary hypertension. RVSP 17 mmHg ? MITRAL VALVE: ? Moderately thickened with decreased mobility. ?? No mitral ?? valve stenosis. ??Moderate mitral annular calcification. Mild mitral ?? regurgitation. ? AORTIC VALVE: ? Normal trileaflet appearance. Thickened aortic valve. ? Normal leaflet mobility. ??No evidence of aortic valve stenosis. DVI 0.6. No ?? aortic regurgitation. ? AORTIC ROOT: ? Normal diameter and appearance. ? PULMONIC VALVE: Normal thickness and mobility. No stenosis. Mild ?? regurgitation. ? PERICARDIUM: ? Moderate circumferential pericardial effusion. ??There are no ?? echocardiographic features of cardiac tamponade physiology. ? IVC: ? Collapses with inspirations. Normal size. ? PLEURA: ? CONCLUSION: ? 1. Moderate concentric left ventricular hypertrophy with moderately to ?? severely reduced systolic function. ??LVEF is estimated at 30%. ?? 2. Normal right ventricular size and systolic function. ?? 3. Severe left atrial dilatation. ?? 4. Mild mitral regurgitation. ?? 5. Moderate circumferential pericardial effusion with no echocardiographic ?? features of tamponade physiology. ? Adult Echocardiography Procedure Report ?? Left Ventricle ?? LVEDD (3.7 - 5.6 cm): ? 5.36 cm ?? LVESD (2.2 - 4.0 cm): ? 4.87 cm ?? LVIVS thickness (0.6 - 1.2 cm): ? 1.37 cm ?? LVPW thickness (0.5 - 1.0 cm): ? 1.52 cm ?? e': ? 0.08 m/s ?? E - e': ? 10.86 ?? LVOT Max Gradient: ? 2.70 mm[Hg] ?? LVOT Area (cm2): ? 0.82 m/s ?? Peak Velocity (LVOT): ? 0.82 m/s ?? Mean Velocity (LVOT): ? 0.52 m/s ?? LVOT Diameter ? 1.69 cm ?? Left Ventricular Ejection Fraction: ? 30 % ?? Left Atrium ?? LA Volume Index (2D A2C): ? 73.61 ml/m2 ?? Left Atrium Systolic Dimension: ? 4.81 cm ?? Mitral Valve ?? MV E to A Ratio: ? 0.73 ?? Mitral Valve A-Wave Peak Velocity: ? 1.25 m/s ?? Mitral Valve E-Wave Peak Velocity: ? 0.92 m/s ?? Right Ventricle ?? RV Internal Diastolic Dimension: ? 4.75 cm ?? Aorta ?? AO Root Diam: ? 3.14 cm ?? Ascending Ao Diam: ? 3.17 cm ?? Aortic Valve ?? AoV Area (Peak Dixon): ? 1.25 cm2, 1.25 cm2 ?? AoV Area (VTI): ? 1.07 cm2, 1.07 cm2 ?? Peak Velocity(Antegrade Flow): ? 1.47 m/s, 1.47 m/s ?? Peak Gradient(Antegrade Flow): ? 8.67 mm[Hg], 8.67 mm[Hg] ?? Mean Velocity(Antegrade Flow): ? 0.96 m/s, 0.95 m/s ?? Mean Gradient(Antegrade Flow): ? 4.37 mm[Hg], 4.27 mm[Hg] ?? Velocity Time Integral: ? 35.23 cm, 35.57 cm ?? Tricuspid Valve ?? Peak Velocity (Regurgitant Flow): ? 1.62 m/s, 1.84 m/s, 1.78 m/s ?? Pulmonic Valve ?? Mean Gradient: ? 2.05 mm[Hg], 2.33 mm[Hg] ?? Mean Velocity: ? 0.67 m/s, 0.70 m/s ?? Peak Velocity: ? 1.10 m/s ?? Peak Gradient: ? 4.57 mm[Hg], 5.03 mm[Hg] ?? Right Atrium ?? Right Atrium Systolic Pressure: ? 50.67 ml, 50.67 ml ? Dictated by: Julito Zendejas M.D. on 07/23/2023 at 19:46 ? Approved by: Julito Zendejas M.D. on 07/23/2023 at 19:56 ? Dictated By: ?JULITO ZENDEJAS ? Signed By: ?07/23/231957 ? DD/ 56 ? TD/TT: ? Supervisor Sewer System: Procedure Note Radiology, Radiologist, MD - 07/23/2023 [place] [address] Cardiology Report Signed Patient: LAURA LAWSON AMR#: [id number] : 3Acct:[id number] Age/Sex: 72 / FADM Date: 07/23/23 Loc: CARD Attending Dr: NIRAJ GONZALES APRN Ordering Physician: NIRAJ GONZALES APRN Date of Service: 07/23/23 Procedure(s): CA echo doppler complete Accession Number(s): [id number] cc: VLAD CESAR ; NIRAJ GONZALES APRN Patient Name: LAURA LAWSON MR#: [id number] : 1950 Exam Date: 07/23/2023 Ordering Doctor: [...] JULITO ZENDEJAS Signed By:07/23/231957 DD/ 56 TD/TT: Supervisor Sewer System: Authorizing ProviderResult TypeResult StatusGeneric External Data Provider CLINISYNC IMAGINGFinal Result documented in this encounter Visit Diagnoses Not on filedocumented in this encounter Care Teams Team MemberRelationshipSpecialtyStart DateEnd Date Vlad Cesar MD [address] [place] [address] PCP - GeneralInternal Medicine10/21/22 Vlad Cesar MD [address] [place] [address] PCP - ACO Reach10/31/22FridayMarce LPN [address] [place] [address] Licensed Practical NurseFamily Medicine/07/02 Karine Foote LPN [address] [place] [address] 12/23/24documented as of this encounter
--- OUTSIDE RECORDS SUMMARY | 2025-04-19 13:21 | XMS_ITS | Clinical Summary ---
Author Organization [facility] Address [id number] [place] [address] Care Team Providers Care Fire Control Assistant Name Role Phone Unavailable Primary Care Provider Unavailabl e Allergies No known active allergies Medications MedicationSigDispense QuantityRefillsLast FilledStart DateEnd DateStatus meloxicam (MOBIC) 15 mg tablet Take 1 tablet (15 mg total) by mouth in the morning.05/09/2023ctive MICONAZOLE-7 2 % vaginal cream Insert 1 applicator into the vagina nightly.07/07/2023ctive omeprazole (PriLOSEC) 40 mg capsule Take 1 capsule (40 mg total) by mouth every morning before breakfast.04/28/2023 Active potassium chloride (KLOR-CON M 20) 20 MEQ CR tablet Take 1 tablet (20 mEq total) by mouth in the morning and 1 tablet (20 mEq total) before bedtime.Active torsemide (DEMADEX) 20 mg tablet Take 1 tablet (20 mg total) by mouth 2 (two) times a day.07/09/2023ctive insulin lispro (HumaLOG) 100 unit/mL injection Inject 0.25 mL (25 Units total) under the skin in the morning and 0.25 mL (25 Units total) at noon and 0.25 mL (25 Units total) in the evening. Inject before meals.07/09/2023ctive TOUJEO MAX U-300 SOLOSTAR 300 unit/mL (3 mL) insulin pen Inject 300 mL under the skin in the morning.06/15/2023ctive hydrALAZINE (APRESOLINE) 100 mg tablet Take 1 tablet (100 mg total) by mouth 3 (three) times a day.11/22/2022ctive TRULICITY 1.5 mg/0.5 mL pen injector Inject 1.5 mg under the skin once a week.05/15/2023ctive baclofen (LIORESAL) 10 mg tablet Take 1 tablet (10 mg total) by mouth in the morning and 1 tablet (10 mg total) before bedtime.08/13/2023ctive aspirin 81 mg Take 1 tablet (81 mg total) by mouth in the morning.Active allopurinoL (ZYLOPRIM) 300 mg tablet Take 1 tablet (300 mg total) by mouth in the morning.11/05/2023ctive Active Problems No known active problems Social History Tobacco UseTypesPacks/DayYears UsedDateSmoking Tobacco: NeverSmokeless Tobacco: Never Tobacco Cessation:Counseling Given: Not Answered Alcohol UseStandard Drinks/WeekCommentsNot Currently0 (1 standard drink = 0.6 oz pure alcohol)PHQ-2AnswerDate RecordedTotal Gmcgr216Hunger Screening AnswerDate RecordedWithin the past 12 months we worried whether our food would run out before we got money to buy more.Never True08/19/2023Within the past 12 months the food we bought just didn't last and we didn't have money to get more. Never True08/19/2023CommentsUnknownSex and Gender InformationValueDate RecordedSex Assigned at BirthNot on fileLegal QhkWfxsvg20/30/2024 4:02 PM EST Gender IdentityNot on fileSexual OrientationNot on file Last Filed Vital Signs Vital SignReadingTime TakenCommentsBlood Fomraujt405/7107 11:12 AM EDT Lzydv3991 11:12 AM EDTTemperature--Respiratory Rate--Oxygen Saturation-- Inhaled Oxygen Concentration--Qqvkbt147.5 kg (226 lb)12/15/2023 11:12 AM EDT Krmejp746.1 cm (5' 2.25 )12/15/2023 11:12 AM EDTBody Mass Rjgpc507512/15/2023 11:12 AM EDT Plan of Treatment Health MaintenanceDue DateLast DoneCommentsDTaP,Tdap and Td Vaccines (1 - Tdap) 11/24/1971Zoster (Shingles) Vaccine (1 of 2)2002RSV ( or age 60+ yrs) (1 - Risk 60-74 years 1-dose series)2012Fall Risk Esbxjoyuv66/17/2018 Depression Fyfmkohcg37/12/93230008/19/2023dult BMI Xaveajhyt46 Tobacco Tosdwsedl71Influenza Awpbxfv6102/07/2025 Medical Devices Not on file Insurance
--- OUTSIDE RECORDS SUMMARY | 2025-04-19 13:21 | XMS_ITS | Encounter Summary ---
Author Organization [facility] Address [address] [place] [address] Care Team Providers Care Engraver Jewelry Name Role Phone Vlad Cesar MD Primary Care Provider [phone] Vlad Cesar MD Unavailable [phone] Friday, Marce RACE RELATIONS ADVISER Unavailable [phone] Karine Foote RACE RELATIONS ADVISER Unavailable Encounter Details DateTypeDepartmentCare Team (Latest Contact Info)Mdmweqmsuey06/07/2024Clinisync Result Encounter [facility] External Department Unsolicited Provider, Generic External Data Social History Tobacco UseTypesPacks/DayYears UsedDateSmoking Tobacco: NeverSmokeless Tobacco: NeverAlcohol UseStandard Drinks/WeekCommentsNever0 (1 standard drink = 0.6 oz pure alcohol)Caffeine: 1-2 cups per [id number] Health LiteracyAnswerDate Recorded How often do you [...] relatives?Once a week02/23/2024How often do you attend jain or faith services?Never02/23/2024o you belong to any clubs or organizations such as jain groups, unions, fraSemiSouth Laboratories or athletic groups, or school groups?Yes 02/23/2024How often do you attend meetings of the clubs or organizations you belong to?1 to 4 times per year02/23/2024re you , , , , never , or living with a partner?Never expydeu8502/23/2024 AUDIT-CAnswerDate RecordedQ1: How often do you have [...] at all 02/23/2024HQ-2AnswerDate RecordedPatient Health Questionnaire-2 Score0 12/31/2024[facility] [place] [facility] Occupational Health - Occupational Stress QuestionnaireAnswerDate [...] steady place to sleep or slept in [facility] (including now)?No01/12/2023Housing Stability Vital Sign AnswerDate RecordedIn the last 12 months, was there a time when you were not able to pay the mortgage or rent on time?No02/23/2024Number of Times Moved in the Last YearNot on file02/23/2024t any time in the past 12 months, were you homeless or living in a penitentiary (including now)?No02/23/2024Comments UnknownSex and Gender InformationValueDate RecordedSex Assigned at BirthNot on fileLegal MxaXzqudx74/15/2023 6:47 PM EDTGender IdentityNot on fileSexual OrientationNot on filedocumented as of this encounter Functional Status * AUDIT-C ScoreAnswerDate of UrxpikewufCeqrsx305/16/2024 9:18 AM Conrad, Generic * Q1: How often do you have a drink containing alcohol?AnswerDate of Assessment BzwcudJugzj37/16/2024 9:18 AM Conrad, Generic * Q2: How many drinks containing alcohol do you have on a typical day when you are drinking?AnswerDate of AssessmentAuthorPatient does not drink02/23/2024 9:18 AM Jamshid Martines * Q3: How often do you have six or more drinks on one occasion?AnswerDate of LuwyeqkjxiEuaeblLvlkk49/16/2024 9:18 AM Jamshid Martines * Over the past 2 weeks, how often have you been bothered by any of the following problems?QuestionAnswerDate of AssessmentAuthorLittle interest or pleasure in doing thingsNot at all12/31/2024 10:31 AM Shannan Branch LPN Feeling down, depressed, or hopelessNot at all12/31/2024 10:31 AM Shannan Branch LPNPatient Health Questionnaire-2 Molpu117 10:31 AM Shannan Branch LPN documented as of this encounter Plan of Treatment Not on file documented as of this encounter Procedures Procedure NamePriorityDate/TimeAssociated DiagnosisCommentsCARD ECHO LIMITED STUDY08/14/2023 5:01 PM EST documented in this encounter Results * CARD ECHO LIMITED STUDY (08/14/2023 5:01 PM EST)Anatomical RegionLaterality ModalityRadiographic ImagingSpecimen (Source)Anatomical Location / Laterality Collection Method / VolumeCollection TimeReceived Time08/14/2023 5:01 PM EST Narrative 08/14/2023 5:03 PM EST [facility] ?[address] ? [place] [address] ? Cardiology Report ? Signed ? Patient: LAURA LAWSON ?MR#: [id number] ?? : 1950 ?Acct:[id number] ?? Age/Sex: 72 / F ?ADM Date: 08/14/23 ?? Loc: CARD ? Attending Dr: NIRAJ GONZALES APRN ? Ordering Physician: NIRAJ GONZALES APRN ?? Date of Service: 08/14/23 ?? Procedure(s): CA echo limited ?? Accession Number(s): [id number] ? cc: VLAD CESAR ; NIRAJ GONZALES APRN ? Patient Name: ? LAURA LAWSON ? MR#: [id number] ? : 1950 ? Exam Date: 08/14/2023 ?? Ordering Doctor: NIRAJ GONZALES DISTRIBUTION SALES MANAGER ? ECHOCARDIOGRAM REPORT ? PROCEDURE: ? CA ECHO LIMITED ? INDICATIONS: ? Acute systolic (congestive) heart failure ? COMPARISON: ? None. ? DESCRIPTION: ? Limited ECHOCARDIOGRAM Real-time transthoracic ?? echocardiography with 2D and ? M-mode performed. ? QUALITY: ? Technical quality was good. ? LEFT VENTRICLE: ? Normal chamber size. Moderate concentric left ventricular ?? hypertrophy. Global left ventricular systolic function is mildly decreased. ? Abnormal septal motion likely due to bundle branch block. ?? LV EF: ? Visual estimation of left ventricular ejection fraction is 45% ?? DIASTOLIC: ? ATRIAL SEPTUM: ? LEFT ATRIUM: ? Moderate dilatation. ?? RIGHT ATRIUM: ? Mild dilatation. ?? RIGHT VENTRICLE: ? Normal chamber size. Normal right ventricular systolic ?? function. ? TRICUSPID VALVE: Normal mobility and thickness. ? MITRAL VALVE: ? Normal mobility and thickness. ?Mild mitral annular ?? calcification. ? AORTIC VALVE: ? Normal trileaflet appearance. Mildly calcified aortic valve. ?? Normal leaflet mobility. ? AORTIC ROOT: ? Normal diameter and appearance. ? PULMONIC VALVE: Not well visualized. ? PERICARDIUM: ? Small pericardial effusion. Measuring 1.3 cm ? IVC: ? Collapses with inspirations. Normal size. ? PLEURA: ? CONCLUSION: ? 1. Moderate concentric left ventricular hypertrophy with mildly reduced ?? systolic function. ??LVEF is estimated at 45%. ?? 2. Normal right ventricular size and systolic function. ?? 3. Small pericardial effusion. ?? 4. Limited study performed with no Doppler interrogation as requested. ? Adult Echocardiography Procedure Report ?? Left Ventricle ?? LVEDD (3.7 - 5.6 cm): ? 5.02 cm ?? LVESD (2.2 - 4.0 cm): ? 4.25 cm ?? LVIVS thickness (0.6 - 1.2 cm): ? 1.26 cm ?? LVPW thickness (0.5 - 1.0 cm): ? 1.37 cm ?? LVOT Diameter ? 1.84 cm ?? Left Ventricular Ejection Fraction: ? 45% ?? Left Atrium ?? LA Volume Index (2D A2C): ? 62.89 ml/m2 ?? Left Atrium Systolic Dimension: ? 4.26 cm ?? Mitral Valve ?? Right Ventricle ?? RV Internal Diastolic Dimension: ? 3.59 cm ?? Aorta ?? AO Root Diam: ? 2.72 cm ?? Aortic Valve ?? Tricuspid Valve ?? Pulmonic Valve ?? Right Atrium ?? Right Atrium Systolic Pressure: ? 33.07 ml, 33.07 ml ? Dictated by: Julito Zendejas M.D. on 08/14/2023 at 16:57 ? Approved by: Julito Zendejas M.D. on 08/14/2023 at 17:01 ? Dictated By: ?JULITO ZENDEJAS ? Signed By: ?03/07/24 1703 ? DD/ 1701 ? TD/TT: ? Meter Reading Clerk: Procedure Note Radiology, Radiologist, MD - 08/14/2023 [place] [address] Cardiology Report Signed Patient: LAURA LAWSON AMR#: [id number] : 1950cct:[id number] Age/Sex: 72 / FADM Date: 08/14/23 Loc: CARD Attending Dr: NIRAJ GONZALES APRN Ordering Physician: NIRAJ GONZALES APRN Date of Service: 08/14/23 Procedure(s): CA echo limited Accession Number(s): [id number] cc: VLAD CESAR ; NIRAJ GONZALES APRN Patient Name: LAURA LAWSON MR#: [id number] : 1950 Exam Date: 08/14/2023 Ordering Doctor: [...] at 17:01 Dictated By: JULITO ZENDEJAS Signed By:08/14/23 170 DD/ 00 TD/TT: Meter Reading Clerk: Authorizing ProviderResult TypeResult StatusGeneric External Data ProviderIMG XR PROCEDURESFinal Result documented in this encounter Visit Diagnoses Not on filedocumented in this encounter Care Teams Team MemberRelationshipSpecialtyStart DateEnd Date Vlad Cesar MD [address] [place] [address] PCP - GeneralInternal Medicine10/21/22 Vlad Cesar MD [address] [place] [address] PCP - ACO Reach10/31/22FridayMarce LPN [address] [place] [address] Licensed Practical NurseFamily Medicine/07/02 Karine Foote LPN [address] [place] [address] 12/23/24documented as of this encounter
--- OUTSIDE RECORDS SUMMARY | 2025-04-19 13:21 | XMS_ITS | Encounter Summary ---
Author Organization [facility] Address [address] [place] [address] Care Team Providers Care Information Assoc Name Role Phone Vlad Cesar MD Primary Care Provider [phone] Vlad Cesar MD Unavailable [phone] Karine Foote LPN Unavailable Encounter Details DateTypeDepartmentCare Team (Latest Contact Info)Kmrqrdmefxj79/27/2024Clinisync Result Encounter [facility] External Department Unsolicited Vlad Cesar MD [address] [facility] [address] [place] [address] Social History Tobacco UseTypesPacks/DayYears UsedDateSmoking Tobacco: NeverSmokeless Tobacco: NeverAlcohol UseStandard Drinks/WeekCommentsNever0 (1 standard drink = 0.6 oz pure alcohol)Caffeine: 1-2 cups per [id number] Health LiteracyAnswerDate Recorded How often do you [...] relatives?Once a week02/23/2024How often do you attend hindu or rastafarian services?Never02/23/2024o you belong to any clubs or organizations such as hindu groups, unions, fraternal or athletic groups, or school groups?Yes 02/23/2024How often do you attend meetings of the clubs or organizations you belong to?1 to 4 times per year02/23/2024re you , , , , never , or living with a partner?Never syhydek2602/23/2024 AUDIT-CAnswerDate RecordedQ1: How often do you have [...] at all 02/23/2024HQ-2AnswerDate RecordedPatient Health Questionnaire-2 Score0 12/31/2024[facility] [place] of Occupational Health - Occupational Stress QuestionnaireAnswerDate [...] place to sleep or slept in [facility] (including now)?No01/12/2023Housing Stability Vital Sign AnswerDate RecordedIn the last 12 months, was there a time when you were not able to pay the mortgage or rent on time?No02/23/2024Number of Times Moved in the Last YearNot on file02/23/2024t any time in the past 12 months, were you homeless or living in a fci (including now)?No02/23/2024Comments UnknownSex and Gender InformationValueDate RecordedSex Assigned at BirthNot on fileLegal OlqSuprex37/15/2023 6:47 PM EDTGender IdentityNot on fileSexual OrientationNot on filedocumented as of this encounter Functional Status * AUDIT-C ScoreAnswerDate of QgrosffptrRvimkm059/16/2024 9:18 AM Conrad Generic * Q1: How often do you have a drink containing alcohol?AnswerDate of Assessment PmabxbTcwtt11/16/2024 9:18 AM Conrad, Generic * Q2: How many drinks containing alcohol do you have on a typical day when you are drinking?AnswerDate of AssessmentAuthorPatient does not drink02/23/2024 9:18 AM EDTMericka, Generic * Q3: How often do you have six or more drinks on one occasion?AnswerDate of SnoixuwslhBsxghdUcgum35/16/2024 9:18 AM EDTMychjayleen, Generic * Over the past 2 weeks, how often have you been bothered by any of the following problems?QuestionAnswerDate of AssessmentAuthorLittle interest or pleasure in doing thingsNot at all12/31/2024 10:31 AM Shannan Branch LPN Feeling down, depressed, or hopelessNot at all12/31/2024 10:31 AM Shannan Branch LPNPatient Health Questionnaire-2 [id number] 10:31 AM Shannan Branch LPN documented as of this encounter Plan of Treatment Not on file documented as of this encounter Procedures Procedure NamePriorityDate/TimeAssociated DiagnosisCommentsMM TOMOSYNTHESIS SCREENING BI12/04/2023 3:44 PM EDT documented in this encounter Results * MM TOMOSYNTHESIS SCREENING BI (12/04/2023 3:44 PM EDT)Anatomical Region LateralityModalityOtherSpecimen (Source)Anatomical Location / Laterality Collection Method / VolumeCollection TimeReceived Time12/04/2023 3:44 PM EDT Narrative 12/04/2023 3:45 PM EDT [facility] ?[address] ? [place] [address] ? Mammography Report ? Signed ? Patient: LULU,LAURA A ?MR#: [id number] ?? : 1950 ?Acct:[id number] ?? Age/Sex: 73 / F ?ADM Date: //24 ?? Loc: MAMMO ? Attending Dr: VLAD CESAR ? Ordering Physician: VLAD CESAR ? Results: ? Date of Service: //24 ?Follow Up: ? Procedure(s): MM tomosynthesis screening BI ?? Accession Number(s): [id number] ? cc: VLAD CESAR ? Patient Name: ? LAURA LAWSON ? MR#: [id number] ? : 1950 ? Exam Date: 12/04/2023 [...] Cancers ? None ? LOCATION: ? [facility] ? BREAST COMPOSITION: ? There are [...] By: ?Jordy Joe M.D. ? Signed By: ?12/04/231544 ? DD/ ? TD/TT: ? Supervisor Grower: Procedure Note Radiology, Radiologist, MD - 12/04/2023 [place] [address] Mammography Report Signed Patient: LAURA LAWSON AMR#: [id number] : 1950cct:[id number] Age/Sex: 73 / FADM Date: 12/04/23 Loc: MAMMO Attending Dr: VLAD CESAR Ordering Physician: Chantel CESARults: Date of Service: 12/04/23Follow Up: Procedure(s): MM tomosynthesis screening BI Accession Number(s): [id number] cc: VLAD CESAR Patient Name: LAURA LAWSON MR#: [id number] : 1950 Exam Date: 12/04/2023 Ordering Doctor: [...] Treatments None Family Cancers None LOCATION: [facility] BREAST COMPOSITION: There are scattered areas [...] M.D. Signed By:12/04/23 1545 DD/ 1544 TD/TT: Supervisor Grower: Authorizing ProviderResult TypeResult StatusDanijason Cesar MDCLINISYNC IMAGING Final Result documented in this encounter Visit Diagnoses Not on filedocumented in this encounter Care Teams Team MemberRelationshipSpecialtyStart DateEnd Date Vlad Cesar MD [address] [facility] [address] [place] [address] PCP - GeneralInternal Medicine10/21/22 Vlad Cesar MD [address] [facility] [address] [place] [address] PCP - ACO Reach10/31/22 Karine Foote LPN [address] [facility] [address] [place] [address] 12/23/24documented as of this encounter
--- OUTSIDE RECORDS SUMMARY | 2025-04-19 13:21 | XMS_ITS | Encounter Summary ---
Author Organization [facility] Address [address] [place] [address] Care Team Providers Care News Commentator Name Role Phone Vlad Cesar MD Primary Care Provider [phone] Vlad Cesar MD Unavailable [phone] Karine Foote LPN Unavailable Encounter Details DateTypeDepartmentCare Team (Latest Contact Info)Mjsttilugcv03/16/2024Clinisync Result Encounter [facility] External Department Unsolicited Provider, Generic External Data Social History Tobacco UseTypesPacks/DayYears UsedDateSmoking Tobacco: NeverSmokeless Tobacco: NeverAlcohol UseStandard Drinks/WeekCommentsNever0 (1 standard drink = 0.6 oz pure alcohol)Caffeine: 1-2 cups per [id number] Health LiteracyAnswerDate Recorded How often do you [...] relatives?Once a week02/23/2024How often do you attend worship or rastafari services?Never02/23/2024o you belong to any clubs or organizations such as worship groups, unions, fraindependenceIT or athletic groups, or school groups?Yes 02/23/2024How often do you attend meetings of the clubs or organizations you belong to?1 to 4 times per year02/23/2024re you , , , , never , or living with a partner?Never tgpheoi6502/23/2024 AUDIT-CAnswerDate RecordedQ1: How often do you have [...] at all 02/23/2024HQ-2AnswerDate RecordedPatient Health Questionnaire-2 Score0 12/31/2024[facility] [place] of [facility] Health - Occupational Stress QuestionnaireAnswerDate [...] steady place to sleep or slept in [facility] (including now)?No01/12/2023Housing Stability Vital Sign AnswerDate RecordedIn the last 12 months, was there a time when you were not able to pay the mortgage or rent on time?No02/23/2024Number of Times Moved in the Last YearNot on file02/23/2024t any time in the past 12 months, were you homeless or living in a halfway (including now)?No02/23/2024Comments UnknownSex and Gender InformationValueDate RecordedSex Assigned at BirthNot on fileLegal EvqNfaepy88/15/2023 6:47 PM EDTGender IdentityNot on fileSexual OrientationNot on filedocumented as of this encounter Functional Status * AUDIT-C ScoreAnswerDate of ZsxjjkauxoKyjhao372/16/2024 9:18 AM Conrad, Generic * Q1: How often do you have a drink containing alcohol?AnswerDate of Assessment ZciyguHyalc02/16/2024 9:18 AM Conrad Generic * Q2: How many drinks containing alcohol do you have on a typical day when you are drinking?AnswerDate of AssessmentAuthorPatient does not drink02/23/2024 9:18 AM Conrad, Generic * Q3: How often do you have six or more drinks on one occasion?AnswerDate of LlivfuxsuuXfmoavTmxsp93/16/2024 9:18 AM Conrad, Jamshid * Over the past 2 weeks, how often have you been bothered by any of the following problems?QuestionAnswerDate of AssessmentAuthorLittle interest or pleasure in doing thingsNot at all12/31/2024 10:31 AM Shannan Branch LPN Feeling down, depressed, or hopelessNot at all12/31/2024 10:31 AM Shannan Branch LPNPatient Health Questionnaire-2 Oqene672 10:31 AM Shannan Branch LPN documented as of this encounter Plan of Treatment Not on file documented as of this encounter Procedures Procedure NamePriorityDate/TimeAssociated YcafntmokJdrpkynjFBI74/16/2024 2:28 PM EDT documented in this encounter Results * ITP (10/23/2023 2:28 PM EDT)Anatomical RegionLateralityModalityOtherSpecimen (Source)Anatomical Location / LateralityCollection Method / VolumeCollection TimeReceived Time10/23/2023 2:28 PM EDT Narrative 10/23/2023 8:30 PM EDT [facility] ?[address] ? [place] [address] ?Cardiac Rehab Report ? Signed ? Patient: LAURA LAWSON ?MR#: [id number] ?? : 1950 ?Acct:[id number] ?? Age/Sex: 72 / F ?ADM Date: 10/23/23 ?? Loc: CR ? Attending Dr: NIRAJ GONZALES RN PROGRESSIVE CARE ? Ordering Physician: NIRAJ GONZALES APRN ?? Date of Service: 10/23/23 ?? Procedure(s): ITP ?? Accession Number(s): [id number] ? cc: ?[facility] ? Test Date: ?2023-10-23 ?? Pat Name: ? LAURA LAWSON ?Department: ? Room: ? - ?? Gender: ? Female ? Mica Spreader: ? : ?1950 ? Requested By: Niraj Gonzales ?? Order Number: [id number] ?Reading MD: ?? BETHEL ??BALL ? Interpretive Statements ?? Session Date: ? Electronically Signed On 10-23-2023 20:30:25 EDT by BETHEL ??BALL ? Dictated By: ?Bethel Samuels D.O. ? Signed By: ?05/16/24 2030 ?10/23/232029 ? DD/ 1428 ? TD/TT: ? Chrome Worker: Procedure Note Radiology, Radiologist, MD - 10/23/[address]23 [place] [address] Cardiac Rehab Report Signed Patient: LAURA LAWSON AMR#: [id number] : 1950cct:[id number] Age/Sex: 72 / FADM Date: 10/23/23 Loc: CR Attending Dr: NIRAJ GONZALES APRN Ordering Physician: NIRAJ GONZALES APRN Date of Service: 10/23/23 Procedure(s): ITP Accession Number(s): [id number] cc: [facility] Test Date: 2023-10-23 Pat Name: LAURA LAWSON Department: Room: - Gender: Female Mica Spreader: : 1950 Requested By: Niraj Gonzales Order Number: [id number] Veronica MD: BETHEL SAMUELS Interpretive Statements Session Date: Electronically Signed On 10-23-2023 20:30:25 EDT by BETHEL SAMUELS Dictated By: Bethel Samuels D.O. Signed By:10/23/23202910/23/232029 DD/ 27 TD/TT: Chrome Worker: Authorizing ProviderResult TypeResult StatusGeneric External Data Provider CLINISYNC IMAGINGFinal Result documented in this encounter Visit Diagnoses Not on filedocumented in this encounter Care Teams Team MemberRelationshipSpecialtyStart DateEnd Date Vlad Cesar MD [address] [facility] [address] [place] [address] PCP - GeneralInternal Medicine10/21/22 Vlad Cesar MD [address] [facility] [address] [place] [address] PCP - ACO Reach10/31/22 Karine Foote LPN [address] [facility] [address] [place] [address] 12/23/24documented as of this encounter
--- OUTSIDE RECORDS SUMMARY | 2025-04-19 13:22 | XMS_ITS | CCD ---
Author Organization [facility] Team Providers Care Spar Cap Beveler Name Role Phone PHYSICIAN, DEFAULT Admitting Unavailable [...] Nash Other Provider DOTTY Serrano Other Provider [phone] DO Yesi Dickens Other Provider MD Alfredo Lacy Other Provider DO Graeme Davey Other Provider MD James Child Other Provider [phone] MD Chel Juarez Other Provider [phone] Kimmie, ANP-BC Tuyet Other Provider MD Justine Mercedes Other Provider MD Regan Hernandez Other Provider MD Adis Cote Other Provider MD Michael Vang Other Provider DO Anton Lane Other Provider MD Awais Bunn Other Provider MD Sonia Mckeon Other Provider MD Boubacar Weston Other Provider SHANDRA Ely-C Latonia Fisher Other Provider [phone] MD Roman Rosales E Other Provider MD Riccardo Jenkins Other Provider MD Edie Granados Other Provider MD Eddy Luu Other Provider DO Laine Swan Other Provider Al MD Clemente Servin Other Provider DO Edwardo Ramirez Other Provider DO Ziggy Vernon Other Provider DOTTY Degroot Other Provider DO Noam Albarado Other Provider MD Jacobo Montes M Other Provider KENDALL Flowers Other Provider Unavailable MARK Cesar Primary Care Provider MD Abner Roa Admit Provider MD Abner Roa Attending Provider MD Chidi Bowen Admit Provider MD Chidi Bowen Attending Provider [phone] KENDALL Mancilla Other Provider Unavailable KENDALL Linares Other Provider Unavailable Marcelino RN Jessica Other Provider Unavailable Jony RN Arcelia Other Provider Unavailable KENDALL Luong Other Provider Unavailable KENDALL Gardner Other Provider Unavailable MD Meliton Schwartz Other Provider MD Fred Nash Other Provider Dials, RICE DRIER Mirtha M Other Provider DO Yesi Dickens [...] Other Provider DO Edwardo Ramirez Other Provider [phone] DO Janeen Ziggy Mona Other Provider DOTTY Degroot Other Provider DO Noam Albarado Other Provider [phone] MD Jacobo Montes Other Provider KENDALL Flowers Other Provider Unavailable Melba, MARK Chu Primary Care Provider [phone] MD Abner Roa Attending Provider MARK Cesar Primary Care Provider [phone] MD Abner Roa Attending Provider [phone] MELBA, DR CHU Primary Care Unavailable HAY ., DR PRICE Attending Unavailable HAY ., DR PRICE Consulting Unavailable HAY ., DR PRICE Admitting Unavailable YATESRUSSELL PADGETT Consulting Unavailable MELBA, DR CHU Attending Unavailable MELBA, DR CHU Consulting Unavailable MELBA, DR CHU Primary Care Unavailable MELBA, DR CHU Admitting Unavailable MELBA, DR CHU Admitting Unavailable CESAR, DR CHU Attending Unavailable MELBA, DR CHU Consulting Unavailable MELBA, DR CHU Primary Care Unavailable MARK Cesar Primary Care Provider MD Abner Roa Attending Provider Abraham Cesar MD Primary Care Provider Abraham Cesar MD Unavailable [phone] MARK Cesar Primary Care Provider MD Abner Roa Attending Provider ROBBI URIBE Attending Unavailable CASEY العلي Attending Unavailable ROBBI URIBE Referring Unavailable Jason Contreras MD, May Unavailable Unavailable Abraham Cesar II Primary Care Provider Keri BREWER, Devang Milian Attending Provider [phone] Amaury Chin DO Attending Provider Unavailab Markos Rodriguez Attending Unavailable Luigi Montana Attending Unavailable Luigi Montana Admitting Unavailable [facility] Cardio, XXXX Consulting Unavailable Selvin Yeh Attending Unavailable ABRAHAM CESAR Primary Care Physician [phone] Ann, Luigi Consulting Unavailable Nan, Luigi Consulting Unavailable MD Luigi Montana Consulting Unavailable Unavailable Primary Care Provider Unavailroger Cesar II Abraham Primary Care Provider RosyMolly patricio APRN Attending Provider [phone] Abner Roa MD Attending Provider Selvin Yeh Attending Unavailable Nan, Luigi Consulting Unavailable Nan, Luigi Admitting Unavailable Nan, Luigi Consulting Unavailable Nan, Luigi Consulting Unavailable [facility] Cardio, XXXX Consulting Unavailable Melba FLORES Abraham Primary Care Provider Molly Gallegos APRN Attending Provider Qamar DOLL, Karine Unavailable ABRAHAM CESAR Attending Unavailable NARINDER MEREDITH Attending Unavailable ABRAHAM CESAR Attending Unavailable NATI VIRK Attending Unavailable ABRAHAM CESAR Attending Unavailable ANTOLIN MCKAY Attending Unavailable NATI VIRK Referring Unavailable ABRAHAM CESAR Attending Unavailable HEMNATI MACK Attending Unavailable ABRAHAM CESAR Attending Unavailable NARINDER MEREDITH Attending Unavailable ABRAHAM CESAR Attending Unavailable NARINDER MEREDITH Attending Unavailable HEMNATI MACK Attending Unavailable ABRAHAM CESAR Attending Unavailable ABRAHAM CESAR Attending Unavailable Abraham Cesar II Primary Care Provider Molly Gallegos APRN Attending Provider Poonam BREWER, Joel Lyons Attending Provider Almaz ESPARZA, Dickson Fisher Emergency Provider [phone] Mildred Muñoz APRN Emergency Provider Mateusz BREWER, James Admit Provider [phone] James Child MD Attending Provider [phone] James Child MD Other Provider [phone] Awais Louis MD Other Provider Chloe Collazo MD Attending Provider Chloe Collazo MD Other Provider [phone] Derrell Martinez DO Other Provider [phone] Fortunato Luna MD Other Provider Smooth Terry DO Other Provider [phone] Clemente Cesarel Primary Care Unavailable Molly Gallegos Admitting Unavailable Molly Gallegos Attending Unavailable James Child Admitting Unavailable James Child Attending Unavailable Awais Louis Consulting Unavailable Abraham Cesar Primary Care Unavailable Chloe Collazo Consulting Unavailable Derrell Martinez Consulting Unavailable Fortunato Luna II Consulting Unavailroger e Smooth Terry Consulting Unavailable Devang Saavedra Admitting Unavailable Devang Saavedra Attending Unavailable Abraham Cesar Primary Care Unavailable Dickson Muse Admitting Unavailable Dickson Muse Attending Unavailable Abraham Cesar Primary Care Unavailable Abraham Cesar Primary Care Unavailable Amaury Chin Admitting Unavailable Amaury Chin Attending Unavailable Abraham Cesar [facility] Care Unavailable Abner Roa Admitting Unavailable Abner Roa Attending Unavailable Abraham Cesar Primary Care Unavailable Molly Gallegos Admitting Unavailable Molly Gallegos Attending Unavailable Friday SERVER MANAGER, Marce Unavailable Al Paul, Hemant Attending Unavailable Al Shweiki, Hemant Referring Unavailable Al Shweiki, Hemant Attending Unavailable Al Shweiki, Hemant Referring Unavailable Al Shweiki, Hemant Attending Unavailable Al Shweiki, Hemant Attending Unavailable Al Shweiki, Hemant Referring Unavailable CARYN ROUSE Referring Unavailable HORANI, NICHO Referring Unavailable BHARGAV ROSADO Referring Unavailable NIRALI ARCHULETA Attending Unavailable MARAH JAIME Referring Unavailable MISTY EDWARDS Referring Unavailable MISTY EDWARDS Admitting Unavailable MISTY EDWARDS Attending Unavailable MARIYA CHIN Referring Unavailable JUNEANI, NICHO Admitting Unavailable MALINA JHA Attending Unavailable CAMPBELL KAY Attending Unavailable MISTY EDWARDS Referring Unavailable JERRY, MISTY Referring Unavailable JERRY, MISTY Referring Unavailable JERRY, MISTY Referring Unavailable JERRY, MISTY Referring Unavailable MISTY EDWARDS Attending Unavailable RUDY ZENDEJAS Attending Unavailable RUDY ZENDEJAS Attending Unavailable MISTY EDWARDS Attending Unavailable RUDY ZENDEJAS Referring Unavailable CHRISTIAN, NIRAJ Referring Unavailable RUDY ZENDEJAS Attending Unavailable RUDY ZENDEJAS Attending Unavailable ANTHONY BOJORQUEZ Referring Unavailable CAMPBELL KAY Attending Unavailable SUZANNE CRAWLEY Attending Unavailable BHARGAV ROSADO Referring Unavailable ROSADO, BHARGAV Referring Unavailable MALINA JHA Referring Unavailable MISTY EDWARDS Referring Unavailable ROSADO, BHARGAV Referring Unavailable NIRAJ SAN Attending Unavailable Allergies Allergy ClassificationReported Allergen(s)Allergy TypeDate of OnsetReaction(s) Facility (1 source)17824,00; Translations: [85292,00]Propensity to adverse reactions (disorder)96-56-0560Awo [facility] Rep[facility] (20 sources)gabapentin; Translations: [gabapentin]Drug [place]25-19-0429 Palpitations, Unknown (qualifier value)[facility] (20 sources)traMADol; Translations: [tramadol]Drug Ibcezsh79-83-3816[facility] (2 sources)Penicillin; Translations: [PENICILLIN]Drug Sapzqft83-00-1474[facility] (16 sources)PenicillinsDrug Fsmswvg02-36-1329[facility] (13 sources)Clindamycin; Translations: [clindamycin]Drug Saumwgh62-97-1880 Itching, RashPaulding [facility] Hospital (1 source)gabapentinDrug Vuzojtq90-73-6894VtkxecsmjPaulding County Hospital Repository Medications Current Medications MedicationDrug Class(es)DatesSig (Normalized)Sig (Original)acetaminophen 500 mg oral tablet (20 sources)Start: 48-08-0515kumi 2 tablets by mouth every six hours as needed for painStart: 03-21-2022 End: 24-45-0268eteo 2 tablets by mouth every four hours as needed for pain Acetaminophen 325 mg Tablet Discontinued 650 MG PO Q4H as needed for Mild Pain 100 30 0 April 03, 2022 12:00am May 17, 2024 11:23amStart: 03-21-2022 End: 51-31-9867ubxf 650 mg by mouth every four hoursAcetaminophen Active 650 MG PO Q4H 100 30 April 03, 2022 12:00amallopurinol 300 mg oral tablet (20 sources)Xanthine Oxidase InhibitorStart: 57-57-8598lwkn 1 tablet by mouth once dailyallopurinol (Zyloprim) 300 MG tablet Indications: Gout, unspecified cause, unspecified chronicity, unspecified site Take 1 tablet (300 mg) by mouth Daily 100 tablet 3 09/13/2024 ActiveStart: 03-05-2022 End: 73-83-4834wemb 1 tablet by mouth once dailyamiodarone hydrochloride 200 mg oral tablet (12 sources)AntiarrhythmicStart: 01-18-2025 End: 31-53-2069libqnojpjy (Pacerone) 200 MG tablet Take by mouth 01/18/2025 05/02/2025 Activeamoxicillin 500 mg oral tablet (1 source)Penicillin-class AntibacterialStart: 91-30-9230zdil 1 tablet by mouth twice dailyamoxicillin 500 mg oral tablet 500 mg = 1 tab(s), Oral, BID, Refills(s) 0 Start Date: 07/07/24 Status: Orderedapixaban 5 mg oral tablet (20 sources)Factor Xa InhibitorStart: 02-99-9428dmnx 1 tablet by mouth twice dailyAspir-81 (15 sources)Aspir-81 Activeaspirin 81 mg delayed release oral tablet (20 sources)Platelet Aggregation Inhibitor, Nonsteroidal Anti-inflammatory Drug Start: 16-44-6097andk 1 tablet by mouth once dailyaspirin 81 mg Oral EC Tab 81 mg = 1 tab(s), Oral, Daily, Refills(s) 0 Start Date: 07/07/24 Status: Ordered Start: 03-05-2022 End: 53-62-8810lbpb 1 tablet by mouth once dailyAspirin 81 mg Tablet,Delayed Release (Dr/Ec) Discontinued 81 MG PO Daily 30 0 April 03, 2022 12:00am May 17, 2024 11:22amtake 1 tablet by mouth once dailyaspirin 81 mg chewable tablet chew 1 tablet by oral route every day 81 MG - Activeatorvastatin 80 mg oral tablet (20 sources)HMG-CoA Reductase InhibitorStart: 29-91-8446cjqa 1 tablet by mouth once daily at bedtimeatorvastatin (Lipitor) 80 MG tablet Indications: Hyperlipidemia, unspecified hyperlipidemia type TAKE 1 TABLET BY MOUTH EVERY DAY AT BEDTIME 100 tablet 3 08/30/2024 ActiveStart: 07-31-2023 End: 02-49-6192uauh 1 tablet by mouth once dailyatorvastatin (Lipitor) 80 MG tablet Indications: Hyperlipidemia, unspecified hyperlipidemia type (CMS/HCC) Take 1 tablet (80 mg) by mouth Daily 100 tablet 3 04/12/2024 ActiveStart: 03-05-2022 End: 55-64-1694yqqr 1 tablet by mouth once daily in the eveningAtorvastatin 40 mg Tablet Discontinued 40 MG PO Every evening 30 30 0 April 03, 2022 12:00am May 17, 2024 11:22amtake 1 tablet by mouth twice dailyatorvastatin 40 mg tablet take 1 tablet by oral route 2 times every day 40 MG - Activebaclofen 10 mg oral tablet (20 sources)gamma-Aminobutyric Acid-ergic AgonistStart: 76-96-9148djfrlwkm (Lioresal) 10 MG tablet Indications: Muscle spasm TAKE 1 TABLET IN THE MORNING AND 1 TABLET BEFORE BEDTIME 180 tablet 3 11/25/2024 ActiveStart: 03-05-2022 End: 99-57-8941oupa 1 tablet by mouth once daily at bedtimeBaclofen 10 mg Tablet Discontinued 10 MG PO Daily at bedtime April 03, 2022 12:00am Oct2024 3:09pmtake 1 tablet by mouth three times dailybaclofen 10 mg tablet take 1 tablet by oral route 3 times every day 10 MG - Activecalcium citrate 950 mg oral tablet (16 sources)Start: 40-21-1081roeuuda (as calcium citrate) 200 mg oral tablet 950 mg = 1 tab(s), Oral, BID, Refills(s) 0 Start Date: 07/07/24 Status: Orderedtake 1 tablet by mouth once dailyCalcium Citrate 333 MG 1 tablet Orally Once a day ActiveCalcium Citrate / Vitamin D (3 sources)take 2 tablets by mouth once in the morningCalcium Citrate-Vitamin D (CITRACAL/VITAMIN D PO) Take 2 tablets by mouth in the morning and 2 tablets before bedtime. 0 Activecandesartan cilexetil 32 mg oral tablet (20 sources)Angiotensin 2 Receptor BlockerStart: 67-96-5863rrkblglkjil (Atacand) 32 MG tablet Indications: Hypertension, unspecified type (CMS/HCC) TAKE 1 TABL ET DAILY 90 tablet 3 11/22/2022 ActiveStart: 03-05-2022 End: 85-33-4051bfla 1 tablet by mouth once dailyCandesartan 32 mg Tablet Discontinued 32 MG PO Daily March 05, 2022 12:00am April 03, 2022 8:52amcarvedilol 6.25 mg oral tablet (20 sources)alpha-Adrenergic Sierra, beta-Adrenergic BlockerStart: 02-05-2024 carvedilol (Coreg) 6.25 MG tablet Indications: NSTEMI (non-ST elevated myocardial infarction) (CMS/HCC) TAKE 1 TABLET IN THE MORNING AND IN THE EVENING. TAKE WITH MEALS 200 tablet 3 02/05/2024 ActiveStart: 10-13-2023 End: 98-35-7493vrko 1 tablet by mouth in the morningcarvedilol (Coreg) 6.25 MG tablet Indications: NSTEMI (non-ST elevated myocardial infarction) (CMS/HCC) Take 1 tablet (6.25 mg) by mouth in the morning and 1 tablet (6.25 mg) in the evening. Take with meals. 90 tablet 12/25/2023 ActiveStart: 07-07-2023 End: 00-16-8406uifx 1 tablet by mouth in the morningcarvedilol (Coreg) 6.25 MG tablet Take 6.25 mg by mouth in the morning and 6.25 mg in the evening. 0 07/07/2023 10/10/2023 Activecephalexin 500 mg oral capsule (17 sources)Cephalosporin AntibacterialStart: 12-23-2024 End: 98-63-0369eweh 1 capsule by mouth in the morningcephalexin (Keflex) 500 MG capsule Indications: Cellulitis of finger of right hand Take 1 capsule (500 mg) by mouth in the morning and 1 capsule (500 mg) before bedtime. Do all this for 10 days. 20 capsule 12/23/2024 01/02/2025 ActiveStart: 09-03-2024 End: 05-27-5839xdla 1 capsule by mouth twice dailyCephalexin 500 mg capsule Discontinued 500 MG PO Twice daily September 14, 2024 12:00am October 11, 2024 10:26am ciprofloxacin 250 mg oral tablet (1 source)Quinolone AntimicrobialStart: 05-12-2024 End: 90-30-2841mqur 1 tablet by mouth in the morningciprofloxacin (Cipro) 250 MG tablet Indications: Acute cystitis with hematuria Take 1 tablet (250 mg) by mouth in the morning and 1 tablet (250 mg) before bedtime. Do all this for 3 days. 6 tablet 05/12/2024 05/15/2024 Activeclopidogrel 75 mg oral tablet (20 sources)P2Y12 Platelet InhibitorStart: 10-10-2023 End: 08-04-6547qyed 1 tablet by mouth in the morningclopidogrel (Plavix) 75 MG tablet Indications: NSTEMI (non-ST elevated myocardial infarction) ([facility]) Take 1 tablet (75 mg) by mouth in the morning. 90 tablet 10/13/2023 ActiveStart: 03-05-2022 End: 68-85-9849gcod 1 tablet by mouth once dailyClopidogrel (Plavix) 75 mg Tablet Discontinued 75 MG PO Daily March 05, 2022 12:00am April 03, 2022 8:52am On Hold: Resume on 03/25/22.clotrimazole 20 mg/ml vaginal cream (20 sources)Azole AntifungalStart: 36-20-4328QQL Clotrimazole 3 2 % vaginal cream INSERT 1 APPLICATORFUL VAGINALLY AT BEDTIME FOR 5 NIGHTS 12/13/2023 Active colchicine 0.6 mg oral tablet (8 sources)Start: 93-07-9168cexc 1 tablet by mouth once dailycolchicine 0.6 mg Tab 0.6 mg = 1 tab(s), Oral, Daily, Refills(s) 0 Start Date: 07/07/24 Status: OrderedStart: 05-17-2024 End: 58-93-5715ljnt 1 capsule by mouth once dailyColchicine 0.6 mg capsule Discontinued 0.6 MG PO Daily May 17, 2024 1:00am September 13, 2024 3:30pm Continuous Glucose Sensor (Dexcom G7 Sensor) mis (17 sources)Start: 12-28-2024 End: 78-35-8329daesf 1 dose transdermal route onceContinuous Glucose Sensor (Dexcom G7 Sensor) [facility] [place] Indications: Type 2 diabetes mellitus with diabetic polyneuropathy, with long-term current use of insulin ([facility]) 1 patch every 14 (fourteen) days 6 each 3 12/28/2024 12/28/2025 ActiveStart: 12-23-2024 End: 31-46-7639wsfmz 1 dose transdermal route onceContinuous Glucose Sensor (Dexcom G7 Sensor) [facility] [place] Indications: Type 2 diabetes mellitus with diabetic polyneuropathy, with long-term current use of insulin ([facility]) Place 1 patch on the skin every 14 (fourteen) days 2 each 11 12/23/2024 12/23/2024 Discontinued Start: 12-23-2024 End: 29-04-9791afmiw 1 dose transdermal route onceContinuous Glucose Sensor (Dexcom G7 Sensor) [facility] [place] Indications: Type 2 diabetes mellitus with diabetic polyneuropathy, with long-term current use of insulin ([facility]) 1 patch every 14 (fourteen) days 6 each 3 12/23/2024 12/23/2025 Activedapagliflozin 5 mg oral tablet (20 sources)Sodium-Glucose Cotransporter 2 InhibitorStart: 95-64-0087nlyd 1 tablet by mouth once dailydapagliflozin (Farxiga) 5 MG Indications: Type 2 diabetes mellitus with diabetic polyneuropathy, with long-term current use of insulin ([facility]) Take 1 tablet (5 mg) by mouth Daily 100 tablet 3 09/13/2024 Active Start: 40-10-1310klnu 5 mg by mouth once dailydapagliflozin 10 mg oral tablet 5 mg = 0.5 tab(s), Oral, Daily, Refills(s) 0 Start Date: 07/07/24 Status: Ordered Start: 24-16-7639owwv 1 tablet by mouth once daily in the morningDapagliflozin Propanediol (Farxiga) 10 mg tablet Active 10 MG PO Every morning May 17, 2024 1:00am Complies with drug therapyStart: 10-13-2023 End: 30-96-4123pqpz 1 tablet by mouth once dailydapagliflozin (Farxiga) 10 MG Indications: Type 2 diabetes mellitus with diabetic polyneuropathy, with long- term current use of insulin ([facility]) Take 1 tablet (10 mg) by mouth Daily 90 tablet 12/25/2023 ActiveStart: 07-08-2023 End: 98-02-3049ahxc 10 mg by mouth in the morningdapagliflozin (Farxiga) 10 MG Take 10 mg by mouth in the morning. 0 07/08/2023 10/10/2023 Activetake 5 mg by mouth once dailydapagliflozin (Farxiga) 5 MG Take 5 mg by mouth Daily Active docusate sodium 50 mg / sennosides, halfway 8.6 mg oral tablet (20 sources)Start: 19-09-0298fyvy 2 tablets by mouth twice dailyStart: 03-21-2022 End: 71-43-5861ixua 2 tablets by mouth twice dailySennosides-Docusate Sodium (Stool Softener-Stimulant Laxat) 8.6-50 mg Tablet Discontinued 2 TAB PO Twice daily 60 0 April 03, 2022 12:00am May 17, 2024 11:21amdoxycycline hyclate 100 mg oral capsule (10 sources)Tetracycline-class DrugStart: 03-28-2025 End: 26-12-6010whrp 1 capsule by mouth in the morningdoxycycline (Vibramycin) 100 MG capsule Take 100 mg by mouth in the morning and 100 mg before bedtime. 03/28/2025 Active End: 15-01-9281twxrfyceuhw (Vibramycin) 100 MG capsule Take 100 mg by mouth in the morning and 100 mg before bedtime. Take with at least 8 ounces (large glass) of water, do not lie down for 30 minutes after. 02/11/2025 Discontinued (Other) 0.5 ml dulaglutide 1.5 mg/ml auto-injector (20 sources)GLP-1 Receptor AgonistStart: 09-13-2024 End: 26-13-0820jdmnyh 0.75 mg by subcutaneous injection every weekDulaglutide (Trulicity) 0.75 MG/0.5ML solution auto-injector Indications: Type 2 diabetes mellitus with diabetic polyneuropathy, with long-term current use of insulin (HCC) Inject 0.75 mg under the skin 1 (one) time per week 2 mL 5 09/13/2024 02/11/2025 Discontinued (Other)Start: 07-23-2024 End: 77-78-8993mdbded 1.5 mg by subcutaneous injection every weekTrulicity 1.5 MG/0.5ML solution auto-injector Indications: Type 2 diabetes mellitus with diabetic polyneuropathy, with long-term current use of insulin (CMS/HCC) INJECT 1.5 MG UNDER THE SKIN ONCE A WEEK 2 mL 12 07/23/2024 09/03/2024 Discontinued Start: 45-70-3806wfdjyl 1.5 mg by subcutaneous injection every weekTrulicity Pen 3 mg/0.5 mL subcutaneous solution 1.5 mg, SubCutaneous, qWeek, Refills(s) 0 Start Date: 07/07/24 Status: OrderedStart: 22-46-0593rgswey 1.5 mg by subcutaneous injection every weekTRULICITY 1.5 mg/0.5 mL pen injector Inject 1.5 mg under the skin once a week. 05/15/2023 ActiveStart: 04-03-2022 End: 43-21-5761Bttmklmnqbi (Trulicity) Discontinued 1.5 MG SUBCUT Laguerre@0900 1 April 03, 2022 12:00am September 14, 2024 3:07pmStart: 32-25-9277Pbcqngdzcad (Trulicity) Active 1.5 MG SUBCUT Laguerre@0900 1 April 02, 2022 11:00pmStart: 40-58-3283Nptpsdccnay (Trulicity) Active 1.5 MG SUBCUT Laguerre@0900 07 08April 03, 2022 12:00amStart: 03-05-2022 End: 88-25-9105Ilzdrilpvkv (Trulicity) 1.5 mg/0.5 mL Pen Injector Discontinued 1.5 MG SUBCUT every week March 05, 2022 12:00am April 03, 2022 8:52am Dulaglutide (Trulicity) 3 MG/0.5ML solution auto-injector (6 sources)Start: 79-78-0785slbfwj 3 mg by subcutaneous injection every week Dulaglutide (Trulicity) 3 MG/0.5ML solution auto-injector Indications: Type 2 diabetes mellitus with diabetic polyneuropathy, with long-term current use of insulin (CMS/HCC) Inject 3 mg under the skin 1 (one) time per week 6 mL 3 04/12/2024 Activedulaglutide (Trulicity) 3 MG/0.5ML solution pen-injector (20 sources)Start: 28-60-1112maryoo 3 mg by subcutaneous injection every week dulaglutide (Trulicity) 3 MG/0.5ML solution pen-injector Indications: Type 2 diabetes mellitus withdiabetic polyneuropathy, with long-term current use of insulin (CMS/HCC) Inject 3 mg under the skin1 (one) time per week 4 each 12/25/2023 Activeezetimibe 10 mg oral tablet (20 sources)Dietary Cholesterol Absorption InhibitorStart: 10-14-2023 End: 16-98-2525cclz 1 tablet by mouth once dailyezetimibe (Zetia) 10 MG tablet Indications: Type 2 diabetes mellitus with diabetic polyneuropathy, with long- term current use of insulin ([facility]) Take 1 tablet (10 mg) by mouth Daily 100 tablet 3 09/13/2024 Activegabapentin 100 mg oral capsule (2 sources)Anti-epileptic AgentStart: 55-25-3288Uykgrklceg 100 MG 1 capsule Orally start daily at bedtime and increase by 1 tablet every 5 days until taking three times daily for 30 day(s) Nov, Olfmjh63 hr guaiFENesin 600 mg extended release oral tablet (1 source)Start: 90-41-8600mpsx 1 tablet by mouth twice dailyMucinex 600 mg Tab- ER 600 mg = 1 tab(s), Oral, BID, Refills(s) 0 Start Date: 07/07/24 Status: OrderedHANDICAP PLACARD 5 YEAR (20 sources)Start: 92-59-6401IKZYFFHE PLACARD 5 YEAR Indications: Diastolic congestive heart failure, unspecified HF chronicity (CMS/HCC) , Gout, unspecified cause, unspecified chronicity, unspecified site 5 Units by Other routein the morning. 5 Year Duration for Handicap Placard. 1 Units 4 12/02/2022 Active3 ml insulin glargine 300 unt/ml pen injector (20 sources)Insulin AnalogStart: 92-26-1149nflsdf 30 [IU] by subcutaneous injection once daily at bedtimeStart: 48-77-4351Jovyxwa Glargine U-300 Conc (Toujeo Max U-300 Solostar) 300 unit/mL (3 mL) insulin pen Active 40 UNIT SUBCUT Daily at bedtime March 25, 2025 12:00am Complies with drug therapyStart: 09-13-2024 End: 07-69-4722lubpyk 10 [IU] by subcutaneous injection in the morninginsulin glargine (Lantus SoloStar) 100 UNIT/ML pen Indications: Type 2 diabetes mellitus with diabetic polyneuropathy, with long-term current use of insulin ([facility]) Inject 10 Units under the skin in the morning. 3 mL 11 09/13/2024 09/13/2024 DiscontinuedStart: 66-66-2869Jrzeqxf Glargine (Lantus Solostar U-100 Insulin) 100 unit/mL (3 mL) Insulin Pen Active 30 UNIT SUBCUT Bedtime September 13, 2024 12:00am Complies with drug therapyStart: 91-29-3593zmaskf 10 [IU] by subcutaneous injection twice dailyStart: 63-00-2850madmaw 10 [IU] by subcutaneous injection in the morninginsulin glargine (Lantus SoloStar) 100 UNIT/ML pen Indications: Type 2 diabetes mellitus with diabetic polyneuropathy, with long-term current use of insulin ([facility]) Inject 10 Units under the skin in the morning. 3 mL 11 08/13/2024 ActiveStart: 03-54-9868qascnwg glargine (Toujeo Max SoloStar) 300 UNIT/ML injection Indications: Type 2 Diabetes Mellitus Inject 99 Units under the skin in the morning. 27 mL 3 04/12/2024 ActiveStart: 29-52-6156kacmhn 300 [IU] by subcutaneous injection in the morning TOUJEO MAX U-300 SOLOSTAR 300 unit/mL (3 mL) insulin pen Inject 300 mL under the skin in the morning. 06/15/2023 ActiveStart: 04-03-2022 End: 77-14-3590Pqysdal Glargine (Lantus Solostar U-100 Insulin) 100 unit/mL (3 mL) Insulin Pen Discontinued 40 UNIT SUBCUT Twice daily 15 April 03, 2022 12:00am September 13, 2024 3:30pmStart: 03-05-2022 End: 15-02-1661Zctuwgm Glargine U-300 Conc (Toujeo Max U-300 Solostar) 300 unit/mL (3 mL) Insulin Pen Yjkmkqtwnroe968 UNIT SUBCUT Daily March 05, 2022 12:00am April 03, 2022 8:52amStart: 91-95-5312Wimemb Max SoloStar 300 UNIT/ML injection Indications: Type 2 Diabetes Mellitus Inject 100 Units under the skin in the morning. 11/19/2021 Activeinject 20 [IU] by subcutaneous injection at bedtimeinsulin glargine (Toujeo Max SoloStar) 300 UNIT/ML injection Inject 20 Units under the skin at bedtime ActiveToujeo SoloStar U-300 Insulin 300 unit/mL (1.5 mL) subcutaneous pen inject by subcutaneous route asper insulin protocol 0.00 - ActiveInsulin Glargine Solostar Pen (concentrated) 300 units/mL subcutaneous solution (1 source)Start: 57-08-3788vkyedw 30 [IU] by subcutaneous injection at bedtime Insulin Glargine Solostar Pen (concentrated) 300 units/mL subcutaneous solution 30 unit(s), SubCutaneous, Bedtime, Refills(s) 0 Start Date: 07/07/24 Status: Ordered3 ml insulin lispro 100 unt/ml pen injector (20 sources)Insulin AnalogStart: 66-68-4398wdibfm 10 [IU] by subcutaneous injection once dailyStart: 09-03-2024 End: 38-95-0428tgzbcwl lispro (HumaLOG) 100 UNIT/ML injection Indications: Type 2 diabetes mellitus with other specified complication, with long-term current use of insulin (HCC) Inject 1-4 times per day as directed. 09/03/2024 03/02/2025 DiscontinuedStart: 91-50-6511Hekwuld Lispro KwikPen 100 units/mL injectable solution See Instructions, Refills(s) 0 Start Date: 07/07/24 Status: Ordered Start: 05-17-2024 End: 95-62-1047Jolwpwb Lispro 100 unit/mL insulin pen Discontinued 1 sliding scale dose SUBCUT Use as Directed May 17, 2024 1:00am March 01, 2025 2:34pmStart: 27-65-2176Abzdmdx Lispro (HumaLOG) 100 UNIT/ML solution Indications: Type 2 diabetes mellitus with other specified complication, with long-term current use of insulin (CMS/HCC) Inject 25 Units under the skin in the morning and 25 Units at noon and 25 Units in the evening. Inject before meals. 07/09/2023 ActiveStart: 32-13-4628uigidib lispro (HumaLOG) 100 unit/mL injection Inject 0.25 mL (25 Units total) under the skin in the morning and 0.25 mL (25 Units total) at noon and 0.25 mL (25 Units total) in the evening. Inject before meals. 07/09/2023 ActiveStart: 03-05-2022 End: 19-29-2833Qncnden Lispro (Humalog U-100 Insulin) 100 unit/mL Solution Discontinued 25 UNIT SUBCUT Daily as needed for to lower blood sugar 100 points March 05, 2022 12:00am April 03, 2022 8:52amStart: 03-05-2022 End: 74-43-0810ekdydd 25 [IU] by subcutaneous injection once dailyInsulin Lispro (Humalog U-100 Insulin) 100 unit/mL Solution Discontinued 25 UNIT SUBCUT Daily March 05, 2022 12:00am April 03, 2022 8:52amHumalog KwikPen (U-100) Insulin 100 unit/mL subcutaneous inject by subcutaneous route per prescriber's instructions. Insulin dosing requires individualization. 0.00 - ActiveHumaLOG 100 UNIT/ML as directed Subcutaneous Once a day in AM ActiveInsulin Lispro 100 unit/mL insulin pen (2 sources)Start: 43-31-2104Klztyuh Lispro 100 unit/mL insulin pen Active 1 sliding scale dose SUBCUT Use as Directed May 17, 2024 1:00amStart: 85-11-7829Qtbteab Lispro 100 unit/mL insulin pen Active 1 sliding scale dose SUBCUT Use as Directed May 17, 2024 12:00amKlayesta [id number] UNIT/GM powder (20 sources)Start: 87-76-7292Azevweji 985497 UNIT/GM powder Apply 1 application topically in the morning and 1 application before bedtime. 12/13/2023 Active meloxicam 15 mg oral tablet (20 sources)Nonsteroidal Anti-inflammatory DrugStart: 85-26-1305dhzo 1 tablet by mouth once dailymeloxicam (Mobic) 15 MG tablet Indications: Chronic bilateral low back pain, unspecified whether sciatica present Take 1 tablet (15 mg) by mouth Daily 100 tablet 3 09/13/2024 ActiveStart: 96-96-9487vqer 1 tablet by mouth once daily at mealtimemeloxicam (Mobic) 15 MG tablet Indications: Chronic bilateral low back pain, unspecified whether sciatica present Take 1 tablet (15 mg) by mouth Daily Take with food. 100 tablet 3 04/12/2024 ActiveStart: 11-11-1240wdenlrgfa (Mobic) 15 MG tablet Indications: Chronic bilateral low back pain, unspecified whether sciatica present TAKE 1 TABLET DAILY WITH FOOD 90 tablet 3 05/09/2023 ActiveStart: 03-05-2022 End: 37-60-1587ljek 1 tablet by mouth once dailyMeloxicam 15 mg Tablet Discontinued 15 MG PO Daily March 05, 2022 12:00am April 03, 2022 8 :52amtake 1 tablet by mouth twice dailymeloxicam 7.5 mg tablet take 1 tablet by oral route 2 times every day 7.5 MG - Dkyxyb77 hr metoprolol succinate 25 mg extended release oral tablet (20 sources)beta-Adrenergic BlockerStart: 75-77-7484rgml 2 tablets by mouth once dailyStart: 71-38-5159phav 1 tablet by mouth once dailymetoprolol succinate XL (Toprol-XL) 25 MG 24 hr tablet Indications: Hypertension, unspecified type Take 1 tablet (25 mg) by mouth Daily 100 tablet 3 09/13/2024 ActiveStart: 07-09-2024 metoprolol succinate 25 mg ER Tab 12.5 mg = 0.5 tab(s), Oral, Daily, # 15 tab(s), Refills(s) 0, called to pharmacy (Rx) Start Date: 07/09/24 Status: OrderedStart: 07-08-2024 End: 17-55-1055Wirbbsjvyc tartrate 25 mg Tab 12.5 mg = 0.5 tab(s), Tab, Oral, Start date 07/09/24 9:00:00 AM EST, 07/08/24 8:51:00 EST Start Date: 07/09/24 Stop Date: 07/09/24 Status: CompletedStart: 10-00-1055ppkd 1 tablet by mouth once dailyMetoprolol Succinate 50 mg tablet extended release 24 hr Active 50 MG PO Daily May 17, 2024 1:00am Complies with drug therapytake 1 tablet by mouth once dailymetoprolol succinate XL (Toprol-XL) 25 MG 24 hr tablet Take 12.5 mg by mouth Daily Do not crush or chew. Activemiconazole nitrate 20 mg/ml vaginal cream (4 sources)Azole AntifungalStart: 86-27-8722TDWSDSMTON-7 2 % vaginal cream Insert 1 applicator into the vagina nightly. 07/07/2023 Activemupirocin 0.02 mg/mg topical ointment (2 sources)RNA Synthetase Inhibitor AntibacterialStart: 12-31-2024 End: 50-50-9737weunpvgnj (Bactroban) 2 % ointment Indications: Cellulitis of finger of right hand Apply topically in the morning and in the evening and before bedtime. Do all this for 10 days. 22 g 12/31/2024 01/10/2025 Active NovoFine (15 sources)NovoFine Activeomeprazole 40 mg delayed release oral capsule (20 sources)Proton Pump InhibitorStart: 23-63-0314ocia 1 capsule by mouth in the morningomeprazole (PriLOSEC) [address] capsule Indications: Gastroesophageal reflux disease, unspecified whether esophagitis present Take 1 capsule (40 mg) by mouth in the morning. 90 capsule 3 04/16/2025 ActiveStart: 36-70-8297vmrg 2 capsules by mouth once dailyStart: 04-12-2024 End: 30-97-2317flvq 1 capsule by mouth before mealtimeomeprazole (PriLOSEC) [address] capsule Indications: Gastroesophageal reflux disease, unspecified whether esophagitis present Take 1 capsule (40 mg) by mouth in the morning. Take before meals. Do not crush or chew.. 100 capsule 3 04/12/2024 04/16/2025 Discontinued Start: 55-45-8424pqxymrfycx (PriLOSEC) [address] capsule Indications: Gastroesophageal reflux disease, unspecified whether esophagitis present TAKE 1 CAPSULE DAILY 30 MINUTES BEFORE MORNING MEAL 90 capsule 3 04/28/2023 Active Start: 04-03-2022 End: 85-06-7022lldj 1 capsule by mouth once dailyOmeprazole 20 mg Capsule,Delayed Release(Dr/Ec) Discontinued 20 MG PO Daily 30 30 0 April 03, 2022 12:00am May 17, 2024 11:23amStart: 03-05-2022 End: 53-40-2962zwey 1 tablet by mouth once dailyOmeprazole 20 mg Tablet,Delayed Release (Dr/Ec) Discontinued 20 MG PO Daily March 05, 2022 12:00am April 03, 2022 8:52amoxyCODONE hydrochloride 5 mg oral tablet (20 sources)Opioid AgonistStart: 16-99-5129dgik 1 tablet by mouth every six hours as needed for painoxyCODONE 5 mg Tab 5 mg = 1 tab(s), Oral, q6hr, PRN as needed for pain, # 12 tab(s), Refills(s) 0 Start Date: 07/09/24 Status: Ordered Start: 03-21-2022 End: 23-40-0488gtab 1 tablet by mouth every six hours as needed for pain Oxycodone 5 mg Tablet Discontinued 5 MG PO Every 6 hours as needed for Pain Scale 1 - 5 0 0 2021April 03, 2022 8:52amStart: 03-21-2022 End: 29-96-7181npob 2 tablets by mouth every six hours as needed for pain Oxycodone 5 mg Tablet Discontinued 10 MG PO Every 6 hours as needed for Pain Scale 6 - 10 0 0 March 21, 2022 April 03, 2022 8:52amStart: 03-21-2022 End: 09-48-5023dudm 10 mg by mouth every six hoursOxycodone Discontinued 10 MG PO Every 6 hours 0 March 21, 2022 April 03, 2022 8:52ampolyethylene glycol 3350 28444 mg powder for oral solution (1 source)Osmotic LaxativeStart: 47-78-9747Lgxuqjswl - (2 sources)Probiotic - as directed Orally Activesacubitril 24 mg / valsartan 26 mg oral tablet (20 sources)Angiotensin 2 Receptor BlockerStart: 10-38-6344tkef 24-26 mg by mouth twice dailysacubitril-valsartan (Entresto) 24-26 MG tablet Indications: Chronic systolic congestive heart failure (HCC) 1/2 tablet by mouth twice a day 90 tablet 3 08/30/2024 ActiveStart: 51-38-5261rhew 1 tablet by mouth twice daily Sacubitril-Valsartan 97-103 mg tablet Active 1 TAB PO Twice daily May 17, 2024 1:00am Complies with drug therapyStart: 07-31-2023 End: 38-71-5812kijk 1 tablet by mouth in the morningsacubitril-valsartan (Entresto) 49-51 MG tablet Indications: Acute on chronic diastolic heart failure (CMS/HCC) Take 1 tablet by mouth in the morning and 1 tablet before bedtime. 200 tablet 3 03/01/2024 Activetake 1 tablet by mouth twice dailyEntresto 49 mg- 51 mg tablet take 1 tablet by oral route 2 times every day 1.00 tablet - Active spironolactone 25 mg oral tablet (20 sources)Aldosterone AntagonistStart: 66-83-1351abisbhtddwwtfb 25 mg Tab 12.5 mg = 0.5 tab(s), Oral, Daily, Refills(s) 0 Start Date: 07/07/24 Status: Ordered Start: 10-10-2023 End: 41-67-4278rviq 1 tablet by mouth once dailyspironolactone (Aldactone) 25 MG tablet Indications: Hypertension, unspecified type Take 1 tablet (25 mg) by mouth Daily 100 tablet 3 04/12/2024 Activetake 0.5 tablet by mouth once daily spironolactone 25 mg tablet take 0.5 tablet by oral route every day 12.5 MG - ActiveSteriLance PA (15 sources)SteriLance PA Activeticagrelor 90 mg oral tablet (20 sources)Start: 85-71-3025feis 1 tablet by mouth twice dailytiZANidine 4 mg oral tablet (18 sources)Central alpha-2 Adrenergic AgonistStart: 03-15-2024 End: 91-86-9440nwiy 1 tablet by mouth every six hours for muscle spasms tiZANidine (Zanaflex) 4 MG tablet Indications: Right lumbar radiculopathy Take 1 tablet (4 mg) by mouth every 6 (six) hours if needed for muscle spasms 30 tablet 1 03/29/2024 Activetorsemide 20 mg oral tablet (20 sources)Loop DiureticStart: 17-30-0431txfz 1 tablet by mouth twice daily Start: 12-23-2024 End: 60-17-8043gvyh 1.5 tablets by mouth once dailytorsemide (Demadex) 20 MG tablet Indications: Chronic systolic congestive heart failure (HCC) , Peripheral venous insufficiency Take 1.5 tablets (30 mg) by mouth Daily 45 tablet 11 12/23/2024 12/23/2025 ActiveStart: 07-30-2024 End: 29-03-4567svaz 1 tablet by mouth once dailytorsemide (Demadex) 10 MG tablet Take 10 mg by mouth Daily 07/30/2024 09/03/2024 Discontinued (Reorder)Start: 33-15-5783lqgj 10 mg by mouth once dailytorsemide 20 mg Tab 10 mg = 0.5 tab(s), Oral, Daily, Refills(s) 0 Start Date: 07/07/24 Status: OrderedStart: 07-09-2023 End: 54-70-3854xrcl 1 tablet by mouth once dailyTorsemide 20 mg tablet Discontinued 20 MG PO Daily May 17, 2024 1:00am April 02, 2025 11:48am Start: 62-24-1995mwwb 1 tablet by mouth twice dailytorsemide (DEMADEX) 20 mg tablet Take 1 tablet (20 mg total) by mouth 2 (two) times a day. 07/09/2023 Activetake 2 tablets by mouth once dailytorsemide 20 mg tablet take 2 tablet by oral route every day 40 MG - ActiveTorsemide 20 MG as directed Orally Active TOUANDREINA MCGEE (15 sources)CAROLYNN MCGEE Active Completed/Discontinued Medications MedicationDrug Class(es)DatesSig (Normalized)Sig (Original)acetaminophen 325 mg / HYDROcodone bitartrate 5 mg oral tablet (7 sources)Opioid AgonistStart: 05-19-2024 End: 61-34-6285tjvn 1 tablet by mouth twice daily as needed for painHydrocodone- Acetaminophen 5-325 mg tablet Discontinued 1 TAB PO Twice daily as needed for pain 14 70 May 19, 2024 September 14, 2024 3:07pm Inflammation of sacroiliac joint Sacroiliitis, not elsewhere classifiedaluminum hydroxide 40 mg/ml / magnesium hydroxide 40 mg/ml / simethicone 4 mg/ml oral suspension (15 sources)Start: 03-21-2022 End: 49-15-5977ulif 1 mL by mouth every four hours as needed for gastroesophageal reflux diseaseAlum-Mag Hydroxide-Simeth (Mag-Al Plus) 200-200-20 mg/5 mL Suspension Discontinued 30 ML PO Q4H as needed for Heartburn 0 0 March 21, 2022 12:00am April 03, 2022 8:52ambumetanide 1 mg oral tablet (20 sources)Loop DiureticStart: 03-05-2022 End: 48-73-0851ofoe 1 tablet by mouth once dailyBumetanide 1 mg Tablet Discontinued 1 MG PO Daily 30 30 0 April 03, 2022 12:00am May 17, 2024 11:22amcalcium carbonate 1250 mg oral tablet (20 sources)Start: 04-03-2022 End: 63-24-8387Peetcxv Carbonate (Oyster Shell Calcium 500) 500 mg calcium (1,250 mg) Tablet Discontinued 1000 MG PO Daily 60 0 April 03, 2022 12:00am May 17, 2024 11:22amStart: 03-05-2022 End: 86-54-7212Nwfziwh Carbonate (Calcium 600) 600 mg calcium (1,500 mg) Tablet Discontinued 1200 MG PO Daily March 05, 2022 12:00am April 03, 2022 8:52amclindamycin 150 mg oral capsule (3 sources)Lincosamide AntibacterialStart: 03-25-2025 End: 52-15-0780uxaj 2 capsules by mouth every six hoursClindamycin Hcl 150 mg capsule Discontinued 300 MG PO Q6H 80 10 0 March 25, 2025 12:00am March 29, 2025 4:27pmclobetasol propionate 0.0005 mg/mg topical ointment (6 sources)CorticosteroidStart: 09-13-2024 End: 48-80-3805Zpzpjfrxho 0.05 % ointment Discontinued 1 APPLIC TOPICAL Twice daily 60 14 3 September 13, 2024 12:00am March 25, 2025 3:02pm Apply to bilateral legs twice daily (not heels).cyclobenzaprine hydrochloride 10 mg oral tablet (20 sources)Muscle RelaxantStart: 03-21-2022 End: 49-76-6195thhu 1 tablet by mouth every eight hours as needed for muscle spasmsCyclobenzaprine 10 mg Tablet Discontinued 10 MG PO Every 8 hours as needed for Muscle Spasm 28 30 0Oct2021 12:00am May 17, 2024 11:22am diazePAM 10 mg oral tablet (9 sources)BenzodiazepineStart: 99-15-4624Qffjgg 10 MG 1 tablet 30 minutes prior to procedure only take 2nd tablet if needed Orally Once a day for 1 days Dec, Not-TakingdiphenhydrAMINE hydrochloride 25 mg oral capsule (15 sources)Histamine-1 Receptor AntagonistStart: 03-21-2022 End: 05-61-4719zkrv 1 capsule by mouth every six hours as neededDiphenhydramine Hcl 25 mg Capsule Discontinued 25 MG PO Q6H as needed for Itching 0 0 March 12:00am April 03, 2022 8:52amdocusate sodium 100 mg oral capsule (20 sources)Start: 83-83-1251xjjz 200 mg by mouth once dailyDocusate Sodium Active 200 MG PO Daily 60 April 03, 2022 12:00amStart: 03-05-2022 End: 20-68-3853todi 2 capsules by mouth once dailyDocusate Sodium 100 mg Capsule Discontinued 200 MG PO Daily 60 0 April 03, 2022 12:00am May 17, 2024 11:22amtake 1 capsule by mouth every twenty-four hoursStool Softener 100 MG 1 capsule as needed Orally Once a day ActivehydrALAZINE hydrochloride 50 mg oral tablet (20 sources)Arteriolar VasodilatorStart: 05-17-2024 End: 96-85-9145Myrsgfrsycc 50 mg tablet Discontinued 25 MG PO Twice daily May 17, 2024 11:16am September 14, 2024 3:07pmStart: 13-79-8778rmmz 1 tablet by mouth in the morninghydrALAZINE (Apresoline) 25 MG tablet Indications: Hypertension, unspecified type (CMS/HCC) Take 1 tablet (25 mg) by mouth in the morning and 1 tablet (25 mg) before bedtime. 200 tablet 3 04/12/2024 Active Start: 39-91-5620dlds 1 tablet by mouth in the morninghydrALAZINE (Apresoline) 25 MG tablet Take 25 mg by mouth in the morning and 25 mg before bedtime. 0 10/16/2023 ActiveStart: 61-61-6955cung 1 tablet by mouth three times daily hydrALAZINE (APRESOLINE) 100 mg tablet Take 1 tablet (100 mg total) by mouth 3 (three) times a day.11/22/2022 ActiveStart: 04-03-2022 End: 39-72-8840dxwv 2 tablets by mouth three times dailyHydralazine 50 mg Tablet Discontinued 100 MG PO Three times daily 180 30 0 April 03, 2022 12:00am May 17, 2024 11:23amStart: 90-54-6261apkq 100 mg by mouth three times dailyHydralazine Active 100 MG PO Three times daily 180 30 April 03, 2022 12:00amStart: 03-05-2022 End: 91-29-4818zyhq 1 tablet by mouth three times dailyHydralazine 100 mg Tablet Discontinued 100 MG PO Three times daily March 05, 2022 12:00am April 03, 2022 8:52amStart: 53-24-8223wupk 100 mg by mouth twice dailyHydralazine Active 100 MG PO Twice daily March 05, 2022 12:00amtake 3 tablets by mouth three times daily at mealtimehydralazine 25 mg tablet take 3 tablet by oral route 3 times every day with food 75 MG - ActiveInsulin Aspart U-100 (Novolog Flexpen U-100 Insulin) 100 unit/mL (3 mL) Insulin Pen (19 sources)Start: 04-03-2022 End: 90-51-1267sllqxq 1 dose by subcutaneous injection once at mealtimeInsulin Aspart U-100 (Novolog Flexpen U-100 Insulin) 100 unit/mL (3 mL) Insulin Pen Discontinued 1 sliding scale dose SUBCUT 3X/Day with meals and bedtime April 03, 2022 12:00am May 17, 2024 11:22amStart: 04-03-2022 End: 55-64-5558ttoqfh 1 dose by subcutaneous injection once at mealtimeInsulin Aspart U-100 (Novolog Flexpen U-100 Insulin) 100 unit/mL (3 mL) Insulin Pen Discontinued 1 sliding scale dose SUBCUT 3X/Day with meals and bedtime April 02, 2022 11:00pm May 17, 2024 10:22amStart: 13-69-7845trxata 1 dose by subcutaneous injection once at mealtimeInsulin Aspart U-100 (Novolog Flexpen U-100 Insulin) 100 unit/mL (3 mL) Insulin Pen Active 1 sliding scale dose SUBCUT 3X/Day with meals and bedtime April 02, 2022 11:00pmStart: 34-90-0408aiahtw 1 dose by subcutaneous injection once at mealtimeInsulin Aspart U-100 (Novolog Flexpen U-100 Insulin) 100 unit/mL (3 mL) Insulin Pen Active 1 sliding scale dose SUBCUT 3X/Day with meals and bedtime April 03, 2022 12:00amStart: 03-21-2022 End: 04-07-6017Enskgzt Aspart U-100 (Novolog Flexpen U-100 Insulin) 100 unit/mL (3 mL) Insulin Pen Discontinued 0 UNITS SUBCUT 3X/Day with meals and bedtime 0 March 20, 2022 11:00pm April 03, 2022 7:52amStart: 03-21-2022 End: 33-62-6217Smnammo Aspart U-100 (Novolog Flexpen U-100 Insulin) 100 unit/mL (3 mL) Insulin Pen Discontinued 0 UNITS SUBCUT 3X/Day with meals and bedtime March 21, 2022 12:00am April 03, 2022 8:52amStart: 14-27-6880Tdgoggi Aspart U-100 (Novolog Flexpen U-100 Insulin) 100 unit/mL (3 mL) Insulin Pen Active 0 UNITS SUBCUT 3X/Day with meals and bedtime March 21, 2022 12:00am 3 ml insulin aspart, human 100 unt/ml pen injector (10 sources)Insulin AnalogStart: 03-21-2022 End: 61-89-4000xnwrrv 1 dose by subcutaneous injection once at mealtimeInsulin Aspart U-100 (Novolog Flexpen U-100 Insulin) 100 unit/mL (3 mL) Insulin Pen Discontinued 1 sliding scale dose SUBCUT 3X/Day with meals and bedtime April 03, 2022 12:00am May 17, 2024 11:22amirbesartan 300 mg oral tablet (14 sources)Angiotensin 2 Receptor BlockerStart: 04-03-2022 End: 23-48-5363yddm 1 tablet by mouth once dailyIrbesartan 300 mg Tablet Discontinued 300 MG PO Daily 30 30 April 03, 2022 12:00am May 17, 2024 11:22amlabetalol hydrochloride 200 mg oral tablet (20 sources)beta-Adrenergic BlockerStart: 04-03-2022 End: 70-50-7598xuhd 1 tablet by mouth twice dailyLabetalol 200 mg Tablet Discontinued 200 MG PO Twice daily 60 30 0 April 03, 2022 12:00am May 17, 2024 11:21amStart: 03-05-2022 End: 05-55-2531jbli 1 tablet by mouth twice dailyLabetalol 300 mg Tablet Discontinued 300 MG PO Twice daily March 05, 2022 12:00am April 03, 2022 8:52am htnlevoFLOXacin 750 mg oral tablet (5 sources)Quinolone AntimicrobialStart: 12-02-2024 End: 75-48-4983hdgp 1 tablet by mouth once dailyLevofloxacin 750 mg tablet Discontinued 750 MG PO Daily 7 7 0 December 02, 2024 12:00am January 17, 2025 10:13amlidocaine 0.05 mg/mg medicated patch (20 sources)Antiarrhythmic, Amide Local AnestheticStart: 05-17-2024 End: 74-58-1644zdnwc 1 dose topically once daily as needed for painLidocaine 5 % adhesive patch,medicated Discontinued 1 PATCH TOPICAL Daily as needed for pain 30 30 2 May 17, 2024 1:00am March 29, 2025 4:33pm leave on most painful area for up to 12 hrslinezolid 600 mg oral tablet (11 sources)Oxazolidinone AntibacterialStart: 09-29-2024 End: 41-88-2653havk 1 tablet by mouth twice dailyLinezolid 600 mg tablet Discontinued 600 MG PO Twice daily 20 10 0 October 21, 2024 12:00am January 17, 2025 10:14ammagnesium hydroxide 80 mg/ml oral suspension (15 sources)Start: 03-21-2022 End: 79-59-2986chob 1 mL by mouth at bedtime as needed for constipationMagnesium Hydroxide (Milk Of Magnesia) 400 mg/5 mL Suspension Discontinued 30 ML PO Bedtime as needed for Constipation 0 0 March 21, 2022 12:00am April 03, 2022 8:52amStart: 03-21-2022 End: 47-07-7607kqzf 1 mL by mouth at bedtime as needed for constipationMagnesium Hydroxide (Milk Of Magnesia) 400 mg/5 mL Suspension Discontinued 30 ML PO Bedtime as needed for Constipation 0 March 21, 2022 12:00am April 03, 2022 8:52amStart: 03-21-2022 End: 05-78-8756uike 1 mL by mouth at bedtime as needed for constipationMagnesium Hydroxide (Milk Of Magnesia) 400 mg/5 mL Suspension Discontinued 30 ML PO Bedtime as needed for Constipation 0 March 20, 2022 11:00pm April 03, 2022 7:52amStart: 03-21-2022 End: 76-32-4394fpgm 1 mL by mouth at bedtimeMagnesium Hydroxide (Milk Of Magnesia) 400 mg/5 mL Suspension Discontinued 30 ML PO Bedtime 0 March 20, 2022 11:00pm April 03, 2022 7:52amStart: 03-21-2022 End: 78-36-0835vcao 1 mL by mouth at bedtimeMagnesium Hydroxide (Milk Of Magnesia) 400 mg/5 mL Suspension Discontinued 30 ML PO Bedtime 0 March 21, 2022 12:00am April 03, 2022 8:52amStart: 48-37-3879qjqm 1 mL by mouth at bedtimeMagnesium Hydroxide (Milk Of Magnesia) 400 mg/5 mL Suspension Active 30 ML PO Bedtime 0 March 21, 2022 12:00ammetOLazone 2.5 mg oral tablet (20 sources)Thiazide-like DiureticStart: 03-05-2022 End: 86-37-0160Pnwxxspzkk 2.5 mg Tablet Discontinued 2.5 MG PO MoWeFr@0900 13 30 0 April 03, 2022 12:00am May 17, 2024 11:21amnaproxen 500 mg oral tablet (14 sources)Nonsteroidal Anti-inflammatory DrugStart: 04-03-2022 End: 34-39-7087yyly 1 tablet by mouth twice dailyNaproxen 500 mg Tablet Discontinued 500 MG PO Twice daily 60 30 0 April 03, 2022 12:00am May 17, 2024 11:21amNIFEdipine 30 mg osmotic 24 hr extended release oral tablet (20 sources)Dihydropyridine Calcium Channel BlockerStart: 04-03-2022 End: 33-32-1863uxte 1 tablet by mouth once daily at bedtimeNifedipine 30 mg Tablet Extended Release 24hr Discontinued 30 MG PO Daily at bedtime 30 30 0 April 03, 2022 12:00am May 17, 2024 11:21amStart: 03-05-2022 End: 49-99-7734znqm 1 tablet by mouth once daily at bedtimeNifedipine 30 mg Tablet Extended Release Discontinued 30 MG PO Daily at bedtime March 05, 2022 12:00am April 03, 2022 8:52am htnnitroglycerin 0.3 mg sublingual tablet (20 sources)Nitrate VasodilatorStart: 05-17-2024 End: 68-65-6640Tentnpvszpcug 0.3 mg tablet, sublingual Discontinued 0.3 MG SUBLINGUAL Q5M as needed for chest painDecember 2023 1:00am March 29, 2025 4:33pm do not exceed 3 doses per episodeNitroglycerin 0.3 MG as directed Sublingual prn Activenystatin 100 unt/mg topical powder (20 sources)Polyene AntifungalStart: 09-14-2024 End: 55-64-0297Belwjgkd (Klayesta) 100,000 unit/gram powder Discontinued 1 APPLIC TOPICAL Twice daily September 14, 2024 12:00am March 29, 2025 4:33pm Start: 08-06-2024 End: 26-15-9308rpwhsagz (Klayesta) [id number] UNIT/GM powder Indications: Intertrigo Apply topically 2 (two) times a day 60 g 1 08/06/2024 08/06/2025 Active Potassium Chloride (20 sources)Start: 23-96-8082vdot 1 tablet by mouth once dailyPotassium Chloride (Qqr-Hyfj-Ewy M20) 20 mEq oral tablet, extended release 20 mEq = 1 tab(s), Oral,Daily, Refills(s) 0 Start Date: 07/07/24 Status: OrderedStart: 04-03-2022 Start: 03-05-2022 End: 48-84-9509eueu 1 tablet by mouth once dailyPotassium Chloride 20 mEq Tablet Extended Release Discontinued 20 MEQ PO Daily March 052:00am April 03, 2022 8:52amStart: 22-09-0042etae 20 mEq by mouth twice daily Potassium Chloride Active 20 MEQ PO Twice daily March 05, 2022 12:00am Potassium Chloride 20 MEQ as directed Orally Once a day ActivepredniSONE 10 mg oral tablet (15 sources)Start: 03-21-2022 End: 39-32-9725kelf 4 tablets by mouth once dailyPrednisone 10 mg Tablet Discontinued 40 MG PO [...] Days: 3 Hours: 0 Dose: 10 0 0 March 21, 2022 12:00am April 03, 2022 8:52am Please contact the information source for Taper Schedule details.Start: 03-21-2022 End: 84-97-0451zzcg 40 mg by mouth once dailyPrednisone Discontinued 40 MG PO Daily 0 March 21, 2022 12:00am April 03, 2022 8:52ampregabalin 25 mg oral capsule (20 sources)Start: 04-09-2024 End: 28-86-9830weid 1 capsule by mouth twice dailyPregabalin (Lyrica) 25 mg capsule Discontinued 25 MG PO Twice daily 60 30 0 August 03, 2024 1:00am January 17, 2025 10:14am Neuropathic pain Neuralgia and neuritis, unspecified rosuvastatin calcium 20 mg oral tablet (7 sources)HMG-CoA Reductase InhibitorStart: 05-17-2024 End: 54-59-1170kdui 1 tablet by mouth once dailyRosuvastatin 20 mg tablet Discontinued 20 MG PO Daily May 17, 2024 1:00am September 14, 2024 3:08pm traMADol hydrochloride 50 mg oral tablet (9 sources)Opioid AgonistStart: 33-82-3698vdns 1 tablet by mouth every twenty- four hourstraMADol HCl 50 MG 1 tablet as needed Orally Once a day for 30 days G89.29 Chronic pain Dec, Not-Taking Problems Active Problems Problem ClassificationProblemDateDocumented DateEpisodic/ChronicAcute myocardial infarction (20 sources)Myocardial infarction; Translations: [Acute myocardial infarction, unspecified]Onset: 162338-39-3353XocovtzBndnddp on above:Problem List clean-up per request of Phys. EHR CmteAdministrative/social admission (20 sources)Other reduced mobility; Translations: [Impaired mobility and endurance]49-91-4565QczauhnwVweqhyt on above:Problem List clean-up per request of Phys. EHR CmteCardiac dysrhythmias (8 sources)Paroxysmal atrial fibrillation; Translations: [Paroxysmal atrial fibrillation]Onset: 622497-58-8284JziqmnlUqzwddhb (3 sources)Bilateral senile combined form cataracts of eyes; Translations: [Bilateral senile combined form cataracts of eyes]Onset: 86-13-2790Pqpzkbo Chronic kidney disease (20 sources)Chronic kidney disease; Translations: [Chronic kidney disease stage 3A ]Onset: 397368-56-4290PprqulrFnubqbb ulcer of skin (20 sources)Non-pressure chronic ulcer of left heel and midfoot with unspecified severity; Translations: [Ulcerof left heel]Onset: 560620-86-7967Exoftdb Conduction disorders (6 sources)Presence of automatic (implantable) cardiac defibrillator; Translations: [Encounter for checking and testing of cardiac pacemaker pulse generator [battery]]Onset: 30-96-1130VdehivoArdzsnsyny heart failure; nonhypertensive (20 sources)Unspecified diastolic (congestive) heart failure; Translations: [Acute on chronic diastolic heart failure]Onset: 05-17-2022 Resolved: 75-51-9540GwyuwnbRplnsbxu atherosclerosis and other heart disease (20 sources)Coronary arteriosclerosis; Translations: [Atherosclerotic heart disease of [place] coronary artery without angina pectoris]Onset: 09-24-2023 34-93-8019VsykybfSqozboc on above:Problem List clean-up per request of Phys. EHR CmteCoronary atherosclerosis and other heart disease (20 sources)History of cardiovascular surgery; Translations: [Presence of coronary angioplasty implant and graft]Onset: 283714-85-6511Xcckfixq Diabetes mellitus with complications (20 sources)Skin ulcer due to type 2 diabetes mellitus; Translations: [Type 2 diabetes mellitus with other skinulcer]Onset: 11-25-2019 Resolved: 171809-95-6546FwtjktnUqejlqrs mellitus without complication (20 sources)Type 2 diabetes mellitus; Translations: [Type 2 diabetes mellitus without complications]Onset: 652411-72-5474QjbrcctNcpffkd on above:Problem List clean-up per request of Phys. EHR CmteDisorders of lipid metabolism (20 sources)Hyperlipidemia; Translations: [Hyperlipidemia, unspecified]Onset: 866491-76-1032YnvxgtrMgznutt on above:Problem List clean-up per request of Phys. EHR CmteEsophageal disorders (20 sources)Gastroesophageal reflux disease; Translations: [Gastro-esophageal reflux disease without esophagitis]Onset: 959430-95-3986JznmyfsVqasrlj on above:Problem List clean-up per request of Phys. EHR CmteEssential hypertension (20 sources)Hypertensive disorder; Translations: [Essential (primary) hypertension]Onset: 923384-10-4580AylmncuIxuphzi on above:Problem List clean-up per request of Phys. EHR CmteGenitourinary symptoms and ill-defined conditions (1 source)Scalding pain on urination ; Translations: [Dysuria]50-29-6744Bgrxihzk Gout and other crystal arthropathies (20 sources)Gout; Translations: [Gout, unspecified]Onset: 762807-72-9287 ChronicComment on above:Problem List clean-up per request of Phys. EHR CmteHeart valve disorders (20 sources)Nonrheumatic mitral (valve) insufficiency; Translations: [Mitral valve disorders]Onset: 691407-57-8740ZtfakxzSwwwihhnazid with complications and secondary hypertension (2 sources)Hypertensive heart disease with heart failure; Translations: [Hypertensive heart disease with heartfailure]Onset: 67-20-6115VcxhmsnRbottohi disorders (2 sources)Secondary immune deficiency disorder; Translations: [Immunodeficiency due to conditions classified elsewhere ([facility])]73-88-7441NwxfuzqIsipjtikhv disorders (2 sources)Decreased estrogen level; Translations: [Other primary ovarian failure]16-27-2535XjkddiqOfruqzh (8 sources)Pain in toe; Translations: [Tinea unguium]62-89-4498Jbpqlomv Osteoarthritis (20 sources)Localized, primary osteoarthritis of the pelvic region and thigh; Translations: [Unilateral primaryosteoarthritis, left hip]Onset: 10-17-2016 Resolved: 99-57-6939IhiyqqlHgtlvelkkmss (20 sources)Senile osteoporosis; Translations: [Age-related osteoporosis without current pathological fracture]Onset: 099830-74-4650VbrfrxoYbdvh acquired deformities (18 sources)Lumbar spondylolisthesis; Translations: [Spondylolisthesis, lumbar region]04-81-8817GijgjdkaIvdyi acquired deformities (7 sources)Spondylolisthesis, lumbar region; Translations: [Acquired spondylolisthesis]Onset: 12-06-2021 Resolved: 39-94-5267ZgtednewHpwwx and ill-defined cerebrovascular disease (1 source)Other cerebrovascular disease; Translations: [OTHER CEREBROVASCULAR DISEASE]Onset: 36-94-7653OagzswhBdwip and ill-defined heart disease (20 sources)Diastolic dysfunction; Translations: [Other ill-defined heart diseases]Onset: 819056-11-2740FpfepurRwdhf connective tissue disease (9 sources)History of lumbar fusion; Translations: [Arthrodesis status] 36-74-2283EmdrhnifNjqlq connective tissue disease (2 sources)Arthrodesis status; Translations: [Arthrodesis status]10-23-2023 EpisodicOther connective tissue disease (2 sources)Spasm; Translations: [Other muscle spasm]29-88-1326CpbyilniZtasg connective tissue disease (14 sources)Neuropathic pain; Translations: [Neuralgia and neuritis, unspecified]73-59-3503QymcuqheRngoo connective tissue disease (1 source)Neuralgia and neuritis, unspecified; Translations: [Neuralgia, neuritis, and radiculitis, unspecified]57-92-8564JzumgyknFzawx connective tissue disease (6 sources)Trochanteric bursitis of right hip; Translations: [Trochanteric bursitis, right hip]12-25-5645TrwcfedqYtkls diseases of kidney and ureters (20 sources)Renal mass; Translations: [Other specified disorders of kidney and ureter]Onset: 365155-48-4736MtnzygeNhcfp diseases of veins and lymphatics (11 sources)Disorder of vein of lower extremity; Translations: [Venous insufficiency (chronic) (peripheral)]63-13-6354TpaafyqwEsphv diseases of veins and lymphatics (2 sources)Venous insufficiency (chronic) (peripheral); Translations: [Venous (peripheral) insufficiency, unspecified]55-94-1848EkutmiysFjkgs injuries and conditions due to external causes (11 sources)Local infection of wound; Translations: [Other injury of unspecified body region, initial encounter]99-35-1763FqiynzmnQekej injuries and conditions due to external causes (1 source)Other injury of unspecified body region, initial encounter; Translations: [Posttraumatic wound infection not elsewhere classified]10-11-2024 EpisodicOther nervous system disorders (20 sources)Chronic pain; Translations: [Other chronic pain]Onset: 06-14-2024 05-97-0001RrwmyzgDdipz nervous system disorders (7 sources)Other chronic pain; Translations: [Other chronic pain]Onset: 09-25-2021 Resolved: 42-15-4304BdpcdgcBkhav nervous system disorders (13 sources)Cervical myelopathy; Translations: [Disease of spinal cord, unspecified]08-12-8099HtmjhrkCavei nervous system disorders (1 source)Disease of spinal cord, unspecifiedOnset: 12-06-2021 Resolved: 24-52-3562CrvxyxnMyqjf nervous system disorders (20 sources)Difficulty walking; Translations: [Difficulty in walking, not elsewhere classified]Onset: 008174-95-1321PkmdxbkPmymy nervous system disorders (1 source)Carpal tunnel syndrome, bilateral upper limbs; Translations: [Carpal tunnel syndrome, bilateral upper limbs]Onset: 10-34-2943SwzdjnaCfjta nervous system disorders (2 sources)Bilateral carpal tunnel syndrome; Translations: [Carpal tunnel syndrome, bilateral upper limbs]69-77-6188NeeqrvcUkluf nervous system disorders (20 sources)Carpal tunnel syndrome of left wrist; Translations: [Carpal tunnel syndrome, left upper limb]Onset: 875992-29-1429ZysecgxAgykw nervous system disorders (20 sources)Cognitive deficit in communication skills; Translations: [Cognitive communication deficit]Onset: 29-78-009627890950-08-6893KoarszpSfuxc non-traumatic joint disorders (4 sources)Hip pain; Translations: [Pain in right hip]50-42-3331UvzwnlspYrkaf non-traumatic joint disorders (1 source)Pain in right hip; Translations: [Pain in right hip]Onset: 03-29-2025 EpisodicOther nutritional; endocrine; and metabolic disorders (16 sources)Body mass index 40+ - severely obese; Translations: [Morbid (severe) obesity due to excess calories]52-26-3986WfrajqoGjyzrdg on above:Problem List clean-up per request of Phys. EHR CmteOther nutritional; endocrine; and metabolic disorders (2 sources)Morbid (severe) obesity due to excess calories; Translations: [Morbid obesity]57-67-1718IarshebXcfmj nutritional; endocrine; and metabolic disorders (2 sources)Obesity caused by energy imbalance; Translations: [Morbid (severe) obesity due to excess calories]69-73-1962IzkpywdHylzl nutritional; endocrine; and metabolic disorders (20 sources)Morbid obesity; Translations: [Morbid (severe) obesity due to excess calories]Onset: 010055-19-2353HlsgzrxKuqfh nutritional; endocrine; and metabolic disorders (2 sources)Obesity; Translations: [Obesity, unspecified]Onset: 50-34-5580Vjapefm Other skin disorders (1 source)Disorder of the skin and subcutaneous tissue, unspecified; Translations: [Disorder of the skin and subcutaneous tissue, unspecified]Onset: 84-96-3746RvbtlvhuOkcz-; endo-; and myocarditis; cardiomyopathy (except that caused by tuberculosis or sexually transmitted disease) (20 sources)Cardiomyopathy; Translations: [Cardiomyopathy, unspecified]Onset: 708855-07-1751BzqtvueBhgyeuqlhj and visceral atherosclerosis (1 source)Atherosclerosis of [place] arteries of left leg with ulceration of other part of foot; Translations:[Atherosclerosis of [place] arteries of left leg with ulceration of other part of foot]Onset: 37-67-4446HhbrxnmTfmhaira codes; unclassified (15 sources)Sleep apnea; Translations: [Sleep apnea, unspecified]03-23-2022 ChronicComment on above:Problem List clean-up per request of Phys. EHR Cmte Residual codes; unclassified (3 sources)Sleep apnea, unspecified; Translations: [Unspecified sleep apnea] Onset: 794713-13-1429PdggcobBvericqm codes; unclassified (20 sources)Obstructive sleep apnea syndrome; Translations: [Obstructive sleep apnea (adult) (pediatric)]Onset: 549817-84-3427ItdjoybSktljihc codes; unclassified (11 sources)Bilateral lower limb edema; Translations: [Localized edema] 39-60-5642JvkcfhjnRthnccr detachments; defects; vascular occlusion; and retinopathy (3 sources)Nonexudative age-related macular degeneration; Translations: [Nonexudative age-related macular degeneration]Onset: 19-26-1851Xkygmkj Rheumatoid arthritis and related disease (2 sources)Rheumatoid arthritis; Translations: [Rheumatoid arthritis, unspecified]59-83-3787RurueeiNqpc and subcutaneous tissue infections (9 sources)Cellulitis of right lower limb; Translations: [Cellulitis of left lower limb]Onset: 806442-41-7812QhnwicmiTcighzerwbd; intervertebral disc disorders; other back problems (20 sources)Solitary sacroiliitis; Translations: [Sacroiliitis, not elsewhere classified]Onset: 09-25-2021 Resolved: 90-82-3665ZndoxakEqdyrtdclug injury; contusion (13 sources)Blister of foot; Translations: [Blister (nonthermal), right lesser toe(s), initial encounter]43-25-2027WsdnqjptAhvfbsati cerebral ischemia (1 source)Transient cerebral ischemia; Translations: [Transient cerebral ischemic attack, unspecified]23-49-5745UhniwpyFtioobaskjey (2 sources)Follow-up with Orthopedic Surgery if needed.Unclassified (2 sources)PharmD Cardiology ConsultOnset: 25-17-2860Hzzav infection (2 sources)Disease caused by 2019-nCoV; Translations: [COVID-19]07-21-2023 Episodic Past or Other Problems Problem ClassificationProblemDateDocumented DateEpisodic/ChronicAbdominal hernia (20 sources)Umbilical hernia; Translations: [Umbilical hernia without obstruction or gangrene]Onset: 669029-44-7686HxsznsxjPqsemmfk of urinary tract (20 sources)Kidney stone; Translations: [Calculus of kidney]Onset: 10-15-2022 76-08-7727ZsbrdgrtYeass and electrolyte disorders (2 sources)Hypokalemia; Translations: [Hypokalemia]Onset: 13-73-8977BlchcqrcFumm disorders (4 sources)Mood disordersOnset: 936200-42-2253Mdvikwjjq of unspecified nature or uncertain behavior (20 sources)Neoplasm of uncertain behavior of kidney; Translations: [Neoplasm of uncertain behavior of unspecified kidney]Onset: 945836-75-2592Nahazlcw Other acquired deformities (20 sources)Acquired spondylolisthesis; Translations: [Spondylolisthesis, site unspecified]Onset: 574228-05-1418EelukkzuKgzlx aftercare (1 source)senior care (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 of aspirin; Translations: [MCFP CURRENT USE OF ASPIRIN]Onset: 33-44-7527OmwwpurlGxyfi aftercare (3 sources)senior care (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 of insulin; Translations: [MCFP CURRENT USE OF INSULIN]Onset: 39-75-1133WdaffkbhKuveg aftercare (1 source)Other usp (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 therapy; Translations: [OTH MCFP CURRENT DRUG THERAPY]Onset: 05-62-0276TiymlxmnUdopn aftercare (20 sources)Long-term current use of insulin; Translations: [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]Onset: 114606-98-2472AvcnxpvkIxlxj and unspecified benign neoplasm (20 sources)Angiomyolipoma of kidney; Translations: [Benign lipomatous neoplasm of kidney]Onset: 617607-41-4945HvltqlfhKoupd connective tissue disease (3 sources)Other specified soft tissue disorders; Translations: [OTHER SPEC SOFT TISSUE DISORDERS]Onset: 00-02-4211MfnqtsfcHmeeg connective tissue disease (1 source)Synovial cyst of popliteal space [Finch], right knee; Translations: [SYNOVIAL CYST POP SPACE RIGHT KNEE]Onset: 08-65-7674XkagtxawPdkny connective tissue disease (20 sources)H/O: arthritis; Translations: [Personal history of other diseases of the musculoskeletal system andconnective tissue]Onset: EpisodicOther connective tissue disease (2 sources)Pain of toes of bilateral feet; Translations: [Pain in right toe(s)] 83-98-4021QgtavvmuMdiet connective tissue disease (20 sources)Muscle weakness; Translations: [Muscle weakness (generalized)]Onset: 460832-48-2505IoptifrxLkrwr diseases of veins and lymphatics (20 sources)Peripheral venous insufficiency; Translations: [Venous insufficiency (chronic) (peripheral)]Onset: 789129-37-4688RvsiqhhjQrljp gastrointestinal disorders (20 sources)Oral phase dysphagia; Translations: [Dysphagia, oral phase]Onset: 408110-72-5393SmrjgxwrVwvtw nervous system disorders (20 sources)Skin sensation disturbance; Translations: [Unspecified disturbances of skin sensation]Onset: 960988-90-1948GjcewchzCothp nervous system disorders (20 sources)Paresthesia; Translations: [Paresthesia of skin]Onset: 01-13-2023 45-56-9105VkkmafhkLxtuq nervous system disorders (20 sources)Ataxia; Translations: [Ataxia, unspecified]Onset: 12-23-2024 06-68-0473EjmxkbozRfrrq non-traumatic joint disorders (20 sources)Pain in left knee; Translations: [Pain in joint, lower leg]Onset: 007189-89-8755FhzsmleaEfgul nutritional; endocrine; and metabolic disorders (20 sources)Obese class II; Translations: [Obesity, class 2]Onset: 06-09-2024 Resolved: 825898-06-5899NwlaifzTrcvu screening for suspected conditions (not mental disorders or infectious disease) (20 sources)Coronary arteriosclerosis excluded; Translations: [Encounter for observation for other suspected diseases and conditions ruled out]Onset: 11-02-2013 Resolved: 603826-82-6727YjzbfzvqBxptm skin disorders (20 sources)Impaired skin integrity; Translations: [Unspecified skin changes] Onset: 773342-26-4467LfmpayfzWshjqkq on above:Problem added on documentation of skin impairments.Phlebitis; thrombophlebitis and thromboembolism (20 sources)History of thromboembolism of vein; Translations: [Personal history of other venous thrombosis and embolism]Onset: 78-26-1126MbbzysesHnnksubw codes; unclassified (1 source)Asymptomatic menopausal stateOnset: 12-06-2021 Resolved: 41-44-3074BvtejdvlIyhmdgij codes; unclassified (20 sources)Localized edema; Translations: [Localized edema]Onset: 10-28-2022 48-34-8941VfewbwrxQucfpqus codes; unclassified (20 sources)Acquired absence of cervix and uterus; Translations: [Acquired absence of both cervix and uterus]Onset: 121777-24-0679JlvozgloXkrnhyxy codes; unclassified (20 sources)Noncompliance with medication regimen; Translations: [Non compliance w medication regimen]Onset: 161634-28-0251CxuuodtwLbpdzqhj codes; unclassified (2 sources)Localized edema; Translations: [Edema]Onset: 208199-56-4241 EpisodicSpondylosis; intervertebral disc disorders; other back problems (20 sources)Radiculopathy, lumbar region; Translations: [Lumbar radiculopathy] Onset: 10-07-2013 Resolved: 45-59-5764AgyxplhqMdledoe on above:Problem List clean-up per request of Phys. EHR CmteThyroid disorders (20 sources)Disorder of thyroid gland; Translations: [Disorder of thyroid, unspecified]Onset: 504610-05-4698NautswakExayeeyeuhiv (1 source)DM with mild NPDR with ME (chief complaint)Onset: 01-08-2024 Unclassified (1 source)NPDR (chief complaint)Onset: 26-38-3085Xdxkyqtbpbrm (1 source)Gastroesophageal Reflux Disease-Health Related Quality of Life yuetibbiuhpxg66-90-9317Zpzuhjm tract infections (20 sources)Acute cystitis; Translations: [Acute cystitis with hematuria]Onset: 544154-79-9821Wzcxcsai Results Test NameValueInterpretationReference RangeFacilityOffice Visiton 04-11-2025 Follow-up [id number] Laura Lawson 1950 F Date Provider Department Center 04/11/2025 RosemaryRUDY ZENDEJAS [facility] Family History Problem Relation Age of Onset JABARI disease Mother Heart attack Father Family Status - Relation Status Age at Mother Father Level of Service:60730 [place] OFFICE/OUTPATIENT ESTABLISHED MOD [facility] [address] Cardiac Rehab Report Signed Patient: LAURA LAWSON MR#: [id number] : 1950 Acct:[id number] Age/Sex: 74 / F ADM Date: 03/14/25 Loc: CR Attending Dr: Misty Edwards M.D. Ordering Physician: Misty Edwards M.D. 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 Interpretive Statements Session Date: Electronically Signed On 04-06-2025 19:29:21 EDT by RUDY ZENDEJAS M.D. Dictated By: RUDY ZENDEJAS Signed By: 04/06/251928 DD/ 1406 TD/TT: Quality Project Manager:TBHRadiology, Radiologist, - 04/06/2025 [place] [address] Cardiac Rehab Report Signed Patient: LAURA LAWSON MR#: [id number] : 1950 Acct:[id number] Age/Sex: 74 / F ADM Date: 03/14/25 Loc: CR Attending Dr: Misty Edwards M.D. Ordering Physician: Misty Edwards M.D. 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 Interpretive Statements Session Date: Electronically Signed On 04-06-2025 19:29:21 EDT by RUDY ZENDEJAS M.D. Dictated By: RUDY ZENDEJAS Signed By: 04/06/251928 DD/ 1406 TD/TT: Quality Project Manager: REYES HealthcareRadiology Study observation (narrative)REYES HealthcareITPOrdered By: Radiologist Radiology on 79-61-3106PI[facility] Work Phone: Glucose Poct Glucometerson 53-60-7375Xxhapet [Mass/Vol]161 mg/dLNoSandhills Regional Medical Center Physician GroupComment on above:Result Comment: Random Glucose Reference Range is dependent on time and content of last meal. Glucose of more than 200 mg/dL in a nonstressed, ambulatory subject supports the diagnosis of Diabetes Mellitus. PERFORMED BY: [place] [id number] PATHOLOGIST SUPER[employer]OR [employer] SAVITA JEFFERSON M.D.Performed By: #### GLULS #### Point of Care testing ,Glucose [Mass/Vol]192 mg/dLNoSandhills Regional Medical Center Physician GroupComment on above: Result Comment: Random Glucose Reference Range is dependent on time and content of last meal. Glucose of more than 200 mg/dL in a nonstressed, ambulatory subject supports the diagnosis of Diabetes Mellitus. PERFORMED BY: [place] [id number] PATHOLOGIST SUPER[employer] SAVITA JEFFERSON M.D.Performed By: #### CRP, LACTIC, ESR, CMP, CUBLD, CBC #### [place] [address] USAGlucose [Mass/Vol]155 mg/dLNoSandhills Regional Medical Center Physician GroupComment on above:Result Comment: Random Glucose Reference Range is dependent on time and content of last meal. Glucose of more than 200 mg/dL in a nonstressed, ambulatory subject supports the diagnosis of Diabetes Mellitus. PERFORMED BY: [facility] [address] [place] [address] PATHOLOGIST SUPER[employer] SAVITA JEFFERSON M.D.Performed By: #### GLULS #### Point of Care testing ,Basic Metabolic Panelon 66-41-0568Jnqfi gap [Moles/Vol]11.2 mmol/LNormal 6.0-15.0The [facility] Physician GroupComment on above:Performed By: #### GLULS #### Point of Care testing ,Calcium [Mass/Vol]9.8 mg/dLNormal8.6-10.3The [facility] Physician GroupComment on above:Performed By: #### GLULS #### Point of Care testing ,Chloride [Moles/Vol]104 mmol/MDqxxxc24-141Mvs [facility] Physician GroupComment on above:Performed By: #### GLULS #### Point of Care testing ,CO2 [Moles/Vol]29.2 mmol/TBcmfzy46.0-31.0The [facility] Physician GroupComment on above:Performed By: #### GLULS #### Point of Care testing ,Creatinine [Mass/Vol]1.31 mg/dLHigh0.60-1.20The [facility] Physician Group Comment on above:Performed By: #### GLULS #### Point of Care testing ,Creatinine Clr Calc Xnjuedaf97.71NormMount [facility] Physician GroupComment on above:Result Comment: PERFORMED BY: [facility] [address] [place] [address] PATHOLOGIST SUPERVISOR [employer] SAVITA JEFFERSON M.D.Performed By: #### GLULS #### Point of Care testing ,GFR/1.73 sq M.predicted MDRD (S/P/Bld) [Vol rate/Area]43.290 mL/min/{1.73_m2} NormalThe [facility] Physician GroupComment on above:Performed By: #### GLULS #### Point of Care testing ,Glucose [Mass/Vol]72 mg/dIRmcnas97-170Yzg [facility] Physician GroupComment on above:Result Comment: Random Glucose Reference Range is dependent on time and content of last meal. Glucose of more than 200 mg/dL in a nonstressed, ambulatory subject supports the diagnosis of Diabetes Mellitus. ADA recommended reference rangePerformed By: #### GLULS #### Point of Care testing ,Potassium [Moles/Vol]4.4 mmol/LNormal3.5-5.1The [facility] Physician Group Comment on above:Performed By: #### GLULS #### Point of Care testing ,Sodium [Moles/Vol]140 mmol/BEiyimq980-074Dgl [facility] Physician GroupComment on above:Performed By: #### GLULS #### Point of Care testing ,Urea nitrogen [Mass/Vol]23 mg/dLNormal7-25The [facility] Physician GroupComment on above:Performed By: #### GLULS #### Point of Care testing ,Glucose Poct Glucometerson 95-20-0775Rfdmcer [Mass/Vol]168 mg/dLNoSandhills Regional Medical Center Physician GroupComment on above:Result Comment: Random Glucose Reference Range is dependent on time and content of last meal. Glucose of more than 200 mg/dL in a nonstressed, ambulatory subject supports the diagnosis of Diabetes Mellitus. PERFORMED BY: [place] [id number] PATHOLOGIST SUPERVISOR [employer] SAVITA JEFFERSON M.D.Performed By: #### GLULS #### Point of Care testing ,Glucose [Mass/Vol]190 mg/dLNoSandhills Regional Medical Center Physician GroupComment on above: Result Comment: Random Glucose Reference Range is dependent on time and content of last meal. Glucose of more than 200 mg/dL in a nonstressed, ambulatory subject supports the diagnosis of Diabetes Mellitus. PERFORMED BY: [place] [id number] PATHOLOGIST SUPERVISOR [employer] SAVITA JEFFERSON M.D.Performed By: #### REDRAW K #### [place] [address] USAGlucose [Mass/Vol]106 mg/dLNoSandhills Regional Medical Center Physician GroupComment on above:Result Comment: Random Glucose Reference Range is dependent on time and content of last meal. Glucose of more than 200 mg/dL in a nonstressed, ambulatory subject supports the diagnosis of Diabetes Mellitus. PERFORMED BY: [place] [id number] PATHOLOGIST SUPERVISOR [employer] SAVITA JEFFERSON M.D.Performed By: #### CRP, LACTIC, ESR, CMP, CUBLD, CBC #### [facility] [address] [place] [address] [id number]: Cleaned MeterNoSandhills Regional Medical Center Physician GroupComment on above:Result Comment: PERFORMED BY: [place] [id number] PATHOLOGIST SUPERVISOR [employer] SAVITA JEFFERSON M.D.Performed By: #### REDRAW K #### [place] [address] USAGlucose [Mass/Vol]125 mg/dLHCA Florida [facility]le[facility] Hospital Physician GroupComment on above:Result Comment: Random Glucose Reference Range is dependent on time and content of last meal. Glucose of more than 200 mg/dL in a nonstressed, ambulatory subject supports the diagnosis of Diabetes Mellitus.Performed By: #### REDRAW K #### [place] [address] [id number]: Cleaned MeterNoSandhills Regional Medical Center Physician GroupComment on above:Result Comment: PERFORMED BY: [place] [id number] PATHOLOGIST SUPERVISOR [employer] SAVITA JEFFERSON M.D.Performed By: #### GLULS #### Point of Care testing ,Glucose [Mass/Vol]116 mg/dLHCA Florida Englewood Hospital Physician GroupComment on above: Result Comment: Random Glucose Reference Range is dependent on time and content of last meal. Glucose of more than 200 mg/dL in a nonstressed, ambulatory subject supports the diagnosis of Diabetes Mellitus.Performed By: #### GLULS #### Point of Care testing ,Basic Metabolic Panelon 29-81-8898Rudky gap [Moles/Vol]11.2 mmol/LNormal 6.0-15.0The [facility] Physician GroupComment on above:Performed By: #### BMP #### [place] [address] USACalcium [Mass/Vol]9.4 mg/dLNormal8.6-10.3The [facility] Physician GroupComment on above:Performed By: #### BMP #### [place] [address] USAChloride [Moles/Vol]106 mmol/SMpyetr63-795Ggc [facility] Physician GroupComment on above:Performed By: #### BMP #### [place] [address] USACO2 [Moles/Vol]28.2 mmol/SCisghp68.0-31.0The [facility] Physician GroupComment on above:Performed By: #### BMP #### [place] [address] USACreatinine [Mass/Vol]1.33 mg/dLHigh0.60-1.20The [facility] Physician GroupComment on above:Performed By: #### BMP #### [place] [address] USACreatinine Clr Calc Kbochrmn03.17NormalThe [facility] Physician GroupComment on above:Result Comment: PERFORMED BY: [place] [id number] PATHOLOGIST SUPERVISOR [employer] SAVITA JEFFERSON M.D.Performed By: #### BMP #### [place] [address] USAGFR/1.73 sq M.predicted MDRD (S/P/Bld) [Vol rate/Area] 42.510 mL/min/{1.73_m2}NormalThe [facility] Physician GroupComment on above: Performed By: #### BMP #### [place] [address] USAGlucose [Mass/Vol]41 mg/dLOff scale idh72-611Pln [facility] Physician [facility] HospitalComment on above:Result Comment: Critical Result Called to and read back by: RISHI DEVLIN at: 03/31/2025 08:03:11 by:ARMIN Random Glucose Reference Range is dependent on time and content of last meal. Glucose of more than 200 mg/dL in a nonstressed, ambulatory subject supports the diagnosis of Diabetes Mellitus. ADA recommended reference rangePerformed By: #### BMP #### [facility] [address] [place] [address] USAPotassium [Moles/Vol]3.4 mmol/LLow3.5-5.1The [facility] Physician [facility]oula HospitalComment on above:Performed By: #### BMP #### [facility] [address] [place] [address] USASodium [Moles/Vol]142 mmol/VZikssh647-243Feg [facility] Physician [facility] HospitalComment on above:Performed By: #### BMP #### [place] [address] USAUrea nitrogen [Mass/Vol]24 mg/dLNormal7-25The [facility] Physician GroupComment on above:Performed By: #### BMP #### [place] [address] USAGlucose Poct Glucometerson 07-23-5649Egvkaqp4Znw0: Cleaned MeterNoUC Medical CenterComment on above:Result Comment: PERFORMED BY: [place] [id number] PATHOLOGIST SUPERVISOR [employer] SAVITA JEFFERSON M.D.Performed By: #### REDRAW K #### [place] [address] USAGlucose [Mass/Vol]167 mg/dLNoSandhills Regional Medical Center Physician [facility]oula HospitalComment on above:Result Comment: Random Glucose Reference Range is dependent on time and content of last meal. Glucose of more than 200 mg/dL in a nonstressed, ambulatory subject supports the diagnosis of Diabetes Mellitus.Performed By: #### REDRAW K #### [place] [address] USAGlucose [Mass/Vol]151 mg/dLNoSandhills Regional Medical Center Physician GroupComment on above:Result Comment: Random Glucose Reference Range is dependent on time and content of last meal. Glucose of more than 200 mg/dL in a nonstressed, ambulatory subject supports the diagnosis of Diabetes Mellitus. PERFORMED BY: [place] [id number] PATHOLOGIST SUPERVISOR [employer] SAVITA JEFFERSON M.D.Performed By: #### GLULS #### Point of Care testing ,Glucose [Mass/Vol]127 mg/dLNoSandhills Regional Medical Center Physician GroupComment on above: Result Comment: Random Glucose Reference Range is dependent on time and content of last meal. Glucose of more than 200 mg/dL in a nonstressed, ambulatory subject supports the diagnosis of Diabetes Mellitus. PERFORMED BY: [place] [id number] PATHOLOGIST SUPERVISOR [employer] SAVITA JEFFERSON M.D.Performed By: #### REDRAW K #### [place] [address] [id number]: Cleaned MeterNoSandhills Regional Medical Center Physician GroupComment on above:Result Comment: PERFORMED BY: [place] [id number] PATHOLOGIST SUPERVISOR [employer] SAVITA JEFFERSON M.D.Performed By: #### REDRAW K #### [place] [address] USAGlucose [Mass/Vol]72 mg/dLNoSandhills Regional Medical Center Physician GroupComment on above:Result Comment: Random Glucose Reference Range is dependent on time and content of last meal. Glucose of more than 200 mg/dL in a nonstressed, ambulatory subject supports the diagnosis of Diabetes Mellitus.Performed By: #### REDRAW K #### [place] [address] [id number]: Cleaned MeterNoSandhills Regional Medical Center Physician GroupComment on above:Result Comment: PERFORMED BY: [place] [id number] PATHOLOGIST SUPERVISOR [employer] SAVITA JEFFERSON M.D.Performed By: #### REDRAW K #### [place] [address] USAGlucose [Mass/Vol]75 mg/dLHCA Florida [facility]le[facility] Hospital Physician GroupComment on above:Result Comment: Random Glucose Reference Range is dependent on time and content of last meal. Glucose of more than 200 mg/dL in a nonstressed, ambulatory subject supports the diagnosis of Diabetes Mellitus.Performed By: #### REDRAW K #### [place] [address] [id number]: Cleaned MeterNoSandhills Regional Medical Center Physician GroupComment on above:Result Comment: PERFORMED BY: [place] [id number] PATHOLOGIST SUPERVISOR [employer] SAVITA JEFFERSON M.D.Performed By: #### GLULS #### Point of Care testing ,Glucose [Mass/Vol]192 mg/dLHCA Florida [facility]le[facility] Hospital Physician GroupComment on above: Result Comment: Random Glucose Reference Range is dependent on time and content of last meal. Glucose of more than 200 mg/dL in a nonstressed, ambulatory subject supports the diagnosis of Diabetes Mellitus.Performed By: #### GLULS #### Point of Care testing ,Basic Metabolic Panelon 19-08-7020Ylgbh gap [Moles/Vol]Not performedNormal 6.0-15.0The [facility] Physician GroupComment on above:Performed By: #### CRP, LACTIC, ESR, CMP, CUBLD, CBC #### [place] [address] USACalcium [Mass/Vol]9.4 mg/dLNormal8.6-10.3The [facility] Physician GroupComment on above:Performed By: #### CRP, LACTIC, ESR, CMP, CUBLD, CBC #### [place] [address] USAChloride [Moles/Vol]106 mmol/SWkywgn42-836Cwe [facility] Physician GroupComment on above:Performed By: #### CRP, LACTIC, ESR, CMP, CUBLD, CBC #### [facility] [address] [place] [address] USACO2 [Moles/Vol]24.1 mmol/URvylcz79.0-31.0The [facility] Physician GroupComment on above:Performed By: #### CRP, LACTIC, ESR, CMP, CUBLD, CBC #### [facility] [address] [place] [address] USACreatinine [Mass/Vol]1.36 mg/dLHigh0.60-1.20The [facility] Physician GroupComment on above:Performed By: #### CRP, LACTIC, ESR, CMP, CUBLD, CBC #### [place] [address] USACreatinine Clr Calc Cnigbqsu14.40NormalThe [facility] Physician GroupComment on above:Result Comment: PERFORMED BY: [place] [id number] PATHOLOGIST SUPERVISOR [employer] SAVITA JEFFERSON M.D.Performed By: #### CRP, LACTIC, ESR, CMP, CUBLD, CBC #### [place] [address] USAGFR/1.73 sq M.predicted MDRD (S/P/Bld) [Vol rate/Area] 41.387 mL/min/{1.73_m2}NormalThe [facility] Physician [facility] HospitalComment on above: Performed By: #### CRP, LACTIC, ESR, CMP, CUBLD, CBC #### [place] [address] USAGlucose [Mass/Vol]52 mg/jQOqt09-096Nxp [facility] Physician GroupComment on above:Result Comment: Random Glucose Reference Range is dependent on time and content of last meal. Glucose of more than 200 mg/dL in a nonstressed, ambulatory subject supports the diagnosis of Diabetes Mellitus. ADA recommended reference rangePerformed By: #### CRP, LACTIC, ESR, CMP, CUBLD, CBC #### [place] [address] USAPotassiumNormal3.5-5.1The [facility] Physician GroupComment on above:Result Comment: Specimen hemolyzed, redraw requestedPerformed By: #### CRP, LACTIC, ESR, CMP, CUBLD, CBC #### [place] [address] USASodium [Moles/Vol]139 mmol/TLljivz725-939[facility] Physician GroupComment on above:Performed By: #### CRP, LACTIC, ESR, CMP, CUBLD, CBC #### [place] [address] USAUrea nitrogen [Mass/Vol]25 mg/dLNoerlanger western carolina hospitalTeton Valley Hospital Physician GroupComment on above:Performed By: #### CRP, LACTIC, ESR, CMP, CUBLD, CBC #### [place] [address] USAGlucose Poct Glucometerson 67-54-7954Ypohdmp7Iee7: Cleaned [facility] Physician GroupComment on above:Result Comment: PERFORMED BY: [place] [id number] PATHOLOGIST SUPERVISOR [employer]UC[employer] SAVITA JEFFERSON M.D.Performed By: #### CRP, LACTIC, ESR, CMP, CUBLD, CBC #### [place] [address] USAGlucose [Mass/Vol]206 mg/dLHCA Florida [facility] Physician [place] HospitalComment on above:Result Comment: Random Glucose Reference Range is dependent on time and content of last meal. Glucose of more than 200 mg/dL in a nonstressed, ambulatory subject supports the diagnosis of Diabetes Mellitus.Performed By: #### CRP, LACTIC, ESR, CMP, CUBLD, CBC #### [place] [address] [id number]: Cleaned [facility] Physician [place] HospitalComment on above:Result Comment: PERFORMED BY: [place] [id number] PATHOLOGIST SUPERVISOR [employer]UCATION SAVITA JEFFERSON M.D.Performed By: #### CRP, LACTIC, ESR, CMP, CUBLD, CBC #### [address] [place] [address] USAGlucose [Mass/Vol]110 mg/dLNoSandhills Regional Medical Center Physician GroupComment on above:Result Comment: Random Glucose Reference Range is dependent on time and content of last meal. Glucose of more than 200 mg/dL in a nonstressed, ambulatory subject supports the diagnosis of Diabetes Mellitus.Performed By: #### CRP, LACTIC, ESR, CMP, CUBLD, CBC #### [place] [address] USARedraw Potassiumon 87-14-2981Elkulwvih [Moles/Vol]3.5 mmol/LNormal3.5-5.1The [facility] Physician GroupComment on above:Result Comment: Hemolysis is present at a level that could interfere with the result. Contact lab if redraw is required PERFORMED BY: [place] [id number] PATHOLOGIST SUPERVISOR [employer]UC[employer] SAVITA JEFFERSON M.D.Performed By: #### REDRAW K #### [place] [address] USAAlanine aminotransferase [Enzymatic activity/volume] in Serum or PlasmaOrdered By: Mildred Muñoz on 63-31-5107TDR [Catalytic activity/Vol]14 U/LNormal7-52[facility] HospitalComment on above: Performed By: #### CRP, LACTIC, ESR, CMP, CUBLD, CBC #### [place] [address] USAAlbumin [Mass/volume] in Serum or Plasma by Bromocresol green (BCG) dye binding methoOrdered By: Mildred Muñoz on 03-29-2025 Albumin BCG dye [Mass/Vol]3.4 g/dLLow3.5-5.7FACMC [facility] Alkaline phosphatase [Enzymatic activity/volume] in Serum or PlasmaOrdered By: Mildred Muñoz on 38-96-6217TTZ [Catalytic activity/Vol]142 U/HDgng69-176 [facility] HospitalComment on above:Performed By: #### CRP, LACTIC, ESR, CMP, CUBLD, CBC #### [address] [place] [address] USAAspartate aminotransferase [Enzymatic activity/volume] in Serum or PlasmaOrdered By: Mildred Muñoz on 00-66-7505AQY [Catalytic activity/Vol]13 U/MPcnwfn31-59NkrjvxhgcPaulding County HospitalComment on above: Performed By: #### CRP, LACTIC, ESR, CMP, CUBLD, CBC #### [facility] [address] [place] [id number] USABasophils [#/volume] in Blood by Automated countOrdered By: Mildred Muñoz on 82-69-0740Xxdgseygh (Bld) [#/Vol]0.0 10*3/uLNormal 0.0-0.2FACMC Healthcare System GlenbeighComment on above:Result Comment: PERFORMED BY: [place] [id number] PATHOLOGIST SUPERVISOR [employer] EDUCATION SAVITA JEFFERSON M.D.Performed By: #### CRP, LACTIC, ESR, CMP, CUBLD, CBC #### [place] [id number] USABasophils/100 leukocytes in Blood by Automated count Ordered By: Mildred Muñoz on 72-18-7642Arearicrm/100 WBC (Bld)0.4 %Normal .[facility] HospitalComment on above:Performed By: #### CRP, LACTIC, ESR, CMP, CUBLD, CBC #### [place] [address] USABilirubin.total [Mass/volume] in Serum or PlasmaOrdered By: Mildred Muñoz on 21-06-3710Omemheyzk [Mass/Vol]2.0 mg/dLHigh0.3-1.0 [facility] HospitalComment on above:Samples from patients who have taken Naproxen have shown spurious elevation in Total Bilirubin levels. A metabolite of Naproxen, O-desmethylnaproxen, has been shown to interfere with the Booker-Matthew method for measuring Total Bilirubin.Result Comment: Samples from patients who have taken Naproxen have shown spurious elevation in Total Bilirubin levels. A metabolite of Naproxen, O-desmethylnaproxen, has been shown to interfere with the Jendrbevik-Grof method for measuring Total Bilirubin.Performed By: #### CRP, LACTIC, ESR, CMP, CUBLD, CBC #### [place] [address] USABlood Cultureon 58-04-5810Shcvlzdw identified Cx Nom (Bld) NO GROWTH 5 DAYS PERFORMED BY: [place] [id number] PATHOLOGIST SUPERVISOR [employer]UCATION SAVITA JEFFERSON M.D.[facility] Physician GroupComment on above: Performed By: #### GLULS #### Point of Care testing ,Bacteria identified Cx Nom (Bld)NO GROWTH 5 DAYS PERFORMED BY: [place] [id number] PATHOLOGIST SUPERVISOR [employer]UCATION SAVITA JEFFERSON M.D.[facility] Physician GroupComment on above: Performed By: #### GLULS #### Point of Care testing ,CT hip RT wo conon 22-35-9920NI hip RT wo [facility] [place] [address] [place] [address] CT Scan Report Signed Patient: Laura Lawson MR#: [id number] : 1950 Acct:[id number] Age/Sex: 74 / F ADM Date: 03/29/25 Loc: ER Room: Type: [facility] ER Attending Dr: Copies to: Mildred Muñoz APRN Ordering Provider: Mildred Muñoz APRN Date of Service: 03/29/25 CT/CT hip RT wo con: lower extremity injury/problem CT RIGHT HIP WITHOUT CONTRAST: CLINICAL HISTORY: Lower extremity injury/right hip pain COMPARISON: None TECHNIQUE: Spiral images were obtained through the right hip.. This CT exam was performed using one or more following dose reduction techniques: Automated exposure control, adjustment of the mA and/or kV according to patient size, or use of iterative reconstruction technique. FINDINGS: No fracture-dislocation. Vdkd-ru-qrztjujr degenerative changes right hip. Enthesophyte formation along the greater trochanter noted. Degenerative changes visualized sacroiliac joints. The postsurgical changes prior posterior lumbar vertebral segmentation incompletely evaluated. There is whce-ik-smpzffrj stool within the rectosigmoid junction. Colonic diverticulosis identified. Evidence of perirectal fat stranding unclear if this is due to third spacing versus the possibility of focal colitis. Otherwise diffuse vascular calcifications. Diffuse anasarca. CT/CT hip RT wo con IMPRESSION: Negative acute fracture or dislocation. Greater trochanteric enthesopathy/ndzb-hd-zwkreexz degenerative changes.. Diffuse anasarca suspected. Haziness along the perirectal fat planes could represent nonspecific third spacing versus proctocolitis. Please correlate with clinical exam findings Impression dictated by: [place] Ogles[place] M.D. 03/29/2025 4:41 PM Dictation Location: [place] [address] Transcribed By: LIBBY 03/29/25 1641 Dictated By: [place] Og[place] MD 03/29/25 1633 Signed By: 03/29/25 1641[facility] Physician GroupCalcium [Mass/volume] in Serum or PlasmaOrdered By: Mildred Muñoz on 20-43-5378Fasbili [Mass/Vol]9.6 mg/dLNormal8.6-10.3FACMC Healthcare System GlenbeighComment on above:Performed By: #### CRP, LACTIC, ESR, CMP, CUBLD, CBC #### [facility] [address] [place] [address] USACarbon dioxide, total [Moles/volume] in Serum or Plasma Ordered By: Mildred Muñoz on 33-72-3474RC0 [Moles/Vol]26.4 mmol/LNormal 21.0-31.0[facility] HospitalComment on above:Performed By: #### CRP, LACTIC, ESR, CMP, CUBLD, CBC #### [facility] [address] [place] [address] USAChloride [Moles/volume] in Serum or PlasmaOrdered By: Mildred Muñoz on 83-84-7023Ozxxaaoh [Moles/Vol]104 mmol/TFohatx00-461 [facility] HospitalComment on above:Performed By: #### CRP, LACTIC, ESR, CMP, CUBLD, CBC #### [place] [address] USAComplete Blood Count Auto Diffon 65-49-3056Hcxo Corpuscular HGB Conc32.1 g/aTYwflac24.0-35.0The [facility] Physician GroupComment on above:Performed By: #### CRP, LACTIC, ESR, CMP, CUBLD, CBC #### [place] [address] USAMonocytes/100 WBC (Bld)23.86 %High0.00-20.00The [facility] Physician GroupComment on above:Result Comment: For adults in ED, MDW > 20.0 may be associated with a higher risk of sepsis during the first 12 hrs of hospital admissionPerformed By: #### CRP, LACTIC, ESR, CMP, CUBLD, CBC #### [place] [address] USANRBC%0.1 /100{WBC}Normal0-0.5The [facility] Physician Group Comment on above:Performed By: #### CRP, LACTIC, ESR, CMP, CUBLD, CBC #### [place] [address] USAWhite Blood Count10.2 [CFU]/mLNormal3.8-11.6The [facility] Physician [facility]oula HospitalComment on above:Performed By: #### CRP, LACTIC, ESR, CMP, CUBLD, CBC #### [place] [address] USAComprehensive Metabolic Panelon 15-71-3821Gxfuhxk [Mass/Vol]3.4 g/dLLow3.5-5.7The [facility] Physician GroupComment on above: Performed By: #### CRP, LACTIC, ESR, CMP, CUBLD, CBC #### [place] [address] USACreatinine Clr Calc Rovlzgld23.86NormalThe [facility] Physician GroupComment on above:Result Comment: PERFORMED BY: [place] [id number] PATHOLOGIST SUPERVISOR [employer] EDUCATION SAVITA JEFFERSON M.D.Performed By: #### CRP, LACTIC, ESR, CMP, CUBLD, CBC #### [facility] [address] [place] [address] USAGFR/1.73 sq M.predicted MDRD (S/P/Bld) [Vol rate/Area] 37.394 mL/min/{1.73_m2}NormalThe [facility] Physician GroupComment on above: Performed By: #### CRP, LACTIC, ESR, CMP, CUBLD, CBC #### [facility] [address] [place] [address] USACreatinine [Mass/volume] in Serum or PlasmaOrdered By: Mildred Muñoz on 39-21-9355Derfnawxuu [Mass/Vol]1.48 mg/dLHigh0.60-1.20 [facility] HospitalComment on above:Performed By: #### CRP, LACTIC, ESR, CMP, CUBLD, CBC #### [place] [address] USAEosinophils [#/volume] in Blood by Automated countOrdered By: Mildred Muñoz on 11-32-1975Qwmodqeohec (Bld) [#/Vol]0.3 10*3/uLNormal 0.0-0.45[facility] HospitalComment on above:Performed By: #### CRP, LACTIC, ESR, CMP, CUBLD, CBC #### [place] [id number] USAEosinophils/100 leukocytes in Blood by Automated count Ordered By: Mildred Muñoz on 31-35-7948Nmrcqtkxopk/100 WBC (Bld)2.7 % Normal.[facility] HospitalComment on above:Performed By: #### CRP, LACTIC, ESR, CMP, CUBLD, CBC #### [place] [address] USAErythrocyte distribution width [Ratio] by Automated count Ordered By: Mildred Muñoz on 88-89-0430Oitekduagfs distribution width (RBC) [Ratio]23.5 %High11.9-15.3FACMC Healthcare System GlenbeighComment on above:Performed By: #### CRP, LACTIC, ESR, CMP, CUBLD, CBC #### [facility] [address] [place] [address] USAErythrocytes [#/volume] in Blood by Automated countOrdered By: Mildred Muñoz on 96-05-4550XZO (Bld) [#/Vol]4.60 10*6/uLNormal 3.60-5.00[facility] HospitalComment on above:Performed By: #### CRP, LACTIC, ESR, CMP, CUBLD, CBC #### [facility] [address] [place] [address] USAGlomerular filtration rate [Volume Rate/Area] in Serum, Plasma or Blood by CreatinineOrdered By: Mildred Muñoz on 03-29-2025 Glomerular filtration rate [Volume Rate/Area] in Serum, Plasma or Blood by Diqmvqeuzi84.394 mL/MinPaulding County HospitalGlucose [Mass/volume] in Serum or PlasmaOrdered By: Mildred Muñoz on 04-28-8806Bxdlaaw [Mass/Vol] 137 mg/oRLram90-889IpvapggjaPaulding County HospitalComment on above:ADA recommended reference rangeRandom Glucose Reference Range is dependent on time and content of last meal. Glucose of more than 200 mg/dL in a nonstressed, ambulatory subject supports the diagnosisof Diabetes Mellitus.Result Comment: Random Glucose Reference Range is dependent on time and content of last meal. Glucose of more than 200 mg/dL in a nonstressed, ambulatory subject supports the diagnosis of Diabetes Mellitus. ADA recommended reference rangePerformed By: #### CRP, LACTIC, ESR, CMP, CUBLD, CBC #### [facility] [address] [id number] USAHematocrit [Volume Fraction] of Blood by Automated count Ordered By: Mildred Muñoz on 39-43-5229Fshyntjoyw (Bld) [Volume fraction] 39.6 %Nnaegj26.0-46.4FACMC Healthcare System GlenbeighComment on above:Performed By: #### CRP, LACTIC, ESR, CMP, CUBLD, CBC #### [facility] [address] [place] [address] USAHemoglobin [Mass/volume] in BloodOrdered By: Mildred Mcintyre on 84-07-5630Fxtzmejpjg (Bld) [Mass/Vol]12.7 g/bFFlzgnq27.8-15.4 [facility] HospitalComment on above:Performed By: #### CRP, LACTIC, ESR, CMP, CUBLD, CBC #### [facility] [address] [place] [address] USAINR in Platelet poor plasma by Coagulation assayOrdered By: Mildred Muñoz on 70-29-5117SWN Coag (PPP) [Relative time]1.9 {INR} [facility] HospitalComment on above:INR Therapeutic Range A) Pre- and Peroperative OAT started two weeks before surgery. NOT HIP SURGERY: 1.5 - 2.5 HIP SURGERY: 2 - 3B) Primary and secondary prevention of venous THROMBOSIS: 2 - 3C) Active venous thrombosis, pulmonary embolismand prevention of recurrent venous thrombosis: 2 - 3D) Prevention of arterial thromboembolismincluding patients with mechanical heart valves: 3 - 4.5Result Comment: INR Therapeutic Range A) Pre- and Peroperative OAT started two weeks before surgery. NOT HIP SURGERY: 1.5 - 2.5 HIP SURGERY: 2 - 3 B) Primary and secondary prevention of venous THROMBOSIS: 2 - 3 C) Active venous thrombosis, pulmonary embolism and prevention of recurrent venous thrombosis: 2 - 3 D) Prevention of arterial thromboembolism including patients with mechanical heart valves: 3 - 4.5Performed By: #### CRP, LACTIC, ESR, CMP, CUBLD, CBC #### [facility] [address] [place] [address] USALeukocytes [#/volume] corrected for nucleated erythrocytes in Blood by Automated counOrdered By: Mildred Muñoz on 44-62-8890TUH corrected for nucl RBC Auto (Bld) [#/Vol]10.2 10*3/uL3.8-11.6FACMC Healthcare System GlenbeighLeukocytes [#/volume] in Blood by Automated countOrdered By: Mildred Muñoz on 01-01-9434ZQM (Bld) [#/Vol]10.2 10*3/uLNormal3.8-11.6 [facility] HospitalComment on above:Performed By: #### CRP, LACTIC, ESR, CMP, CUBLD, CBC #### [facility] [address] [place] [address] USALymphocytes [#/volume] in Blood by Automated countOrdered By: Mildred Muñoz on 11-61-0473Mbxzgrgmifv (Bld) [#/Vol]0.4 10*3/uLLow 1.00-4.8[facility] HospitalComment on above:Performed By: #### CRP, LACTIC, ESR, CMP, CUBLD, CBC #### [facility] [address] [place], [place] [id number] USALymphocytes/100 leukocytes in Blood by Automated count Ordered By: Mildred Muñoz on 77-20-4114Uyabbhsitps/100 WBC (Bld)3.6 % Normal.[facility] HospitalComment on above:Performed By: #### CRP, LACTIC, ESR, CMP, CUBLD, CBC #### [facility] [address] [place], [place] [id number] [facility] [Entitic mass] by Automated countOrdered By: Mildred Muñoz on 23-03-9399HOL (RBC) [Entitic mass]27.7 zoWuagyy30.7-34.3 [facility] HospitalComment on above:Performed By: #### CRP, LACTIC, ESR, CMP, CUBLD, CBC #### [facility] [address] [place], [place] [address] [facility] Auto (RBC) [Mass/Vol]Ordered By: Mildred Muñoz on 29-49-7103DUET (RBC) [Mass/Vol]32.1 g/dL32.0-35.0[facility] HospitalMCV [Entitic volume] by Automated countOrdered By: Mildred Muñoz on 68-45-6661XPV (RBC) [Entitic vol]86.2 aLUdnypd22-873PixjzobcaPaulding County HospitalComment on above:Performed By: #### CRP, LACTIC, ESR, CMP, CUBLD, CBC #### [facility] [address] [place] [address] USAMonocyte distribution width [Entitic volume] in Blood by AutomatedOrdered By: Mildred Muñoz on 21-52-4117Smepxwwt distribution width Auto (Bld) [Entitic vol]23.86 %High0.00-20.00[facility] HospitalComment on above:For adults in ED, MDW > 20.0 may be associated with a higher risk of sepsis during the first 12 hrs of hospital admissionMonocytes [#/volume] in Blood by Automated countOrdered By: Mildred Muñoz on 05-73-9244Ummqcgxki (Bld) [#/Vol]0.9 10*3/uLHigh0.0-0.8[facility] HospitalComment on above:Performed By: #### CRP, LACTIC, ESR, CMP, CUBLD, CBC #### [facility] [address] [place] [address] USAMonocytes/100 leukocytes in Blood by Automated count Ordered By: Mildred Muñoz on 58-12-7484Wdokmamnf/100 WBC (Bld)8.8 %Normal .[facility] HospitalComment on above:Performed By: #### CRP, LACTIC, ESR, CMP, CUBLD, CBC #### [facility] [address] [place], [place] [address] USANeutrophils [#/volume] in Blood by Automated countOrdered By: Mildred Muñoz on 36-47-2699Ujaawnvmnst (Bld) [#/Vol]8.6 10*3/uLHigh 1.8-7.7FACMC Healthcare System GlenbeighComment on above:Performed By: #### CRP, LACTIC, ESR, CMP, CUBLD, CBC #### [facility] [address] [place], [place] [address] USANeutrophils/100 leukocytes in Blood by Automated count Ordered By: Mildred Muñoz on 65-60-4142Wtedsimbeab/100 WBC (Bld)84.5 % Normal.[facility] HospitalComment on above:Performed By: #### CRP, LACTIC, ESR, CMP, CUBLD, CBC #### [facility] [address] [id number] USANo Panel InformationOrdered By: Mildred Muñoz on 60-19-4072Pevymapk Creatinine Clearance (Chem37.86Paul[facility] County HospitalNucleated erythrocytes [Presence] in Blood by Automated countOrdered By: Mildred Muñoz on 56-45-2315Rjxwlwgkq RBC Auto Ql (Bld)0.1 /100{WBC}0-0.5 [facility] HospitalPartial Thromboplastin Timeon 75-13-1157sZVV Coag (Bld) [Time]34.7 lDcehnf30.1-36.5The [facility] Physician GroupComment on above:Result Comment: A hematocrit value greater than 55% may lead to inaccurate results in coagulation testing. Patients having hematocrit values >55% require a special collection tube for coagulation studies. Please contact the laboratory at [phone] for redraw instructions. PERFORMED BY: [place] [id number] PATHOLOGIST [employer] SAVITA JEFFERSON M.D.Performed By: #### CRP, LACTIC, ESR, CMP, CUBLD, CBC #### [facility] [address] [place], [place] [address] USAPlatelet mean volume [Entitic volume] in Blood by Automated countOrdered By: Mildred Muñoz on 15-99-9165Ctpknudr mean volume (Bld) [Entitic vol]8.1 fLNormal6.3-10.7[facility] Comment on above:Performed By: #### CRP, LACTIC, ESR, CMP, CUBLD, CBC #### [place] [address] USAPlatelets [#/volume] in Blood by Automated countOrdered By: Mildred Muñoz on 73-20-5948Kdoxtpqfy (Bld) [#/Vol]259 10*3/uLNormal 150-450[facility] HospitalComment on above:Performed By: #### CRP, LACTIC, ESR, CMP, CUBLD, CBC #### [facility] [address] [place] [address] USAPotassium [Moles/volume] in Serum or PlasmaOrdered By: Mildredshira Muñoz on 07-46-6684Bwetphuyr [Moles/Vol]3.9 mmol/LNormal3.5-5.1 [facility] HospitalComment on above:Performed By: #### CRP, LACTIC, ESR, CMP, CUBLD, CBC #### [facility] [address] [place] [address] USAProtein [Mass/volume] in Serum or PlasmaOrdered By: Mildred Muñoz on 53-28-2153Gdbibit [Mass/Vol]5.6 g/dLLow6.4-8.9[facility] HospitalComment on above:Performed By: #### CRP, LACTIC, ESR, CMP, CUBLD, CBC #### [facility] [address] [place] [address] USAProthrombin time (PT)Ordered By: Mildred Muñoz on 18-95-2931WC Coag (PPP) [Time]21.2 sHigh9.0-12.9[facility] HospitalComment on above:A hematocrit value greater than 55% may lead to inaccurate results in coagulation testing. Patientshaving hematocrit values >55% require a special collection tube for coagulation studies. Please contact the laboratory at [phone] for redraw instructions.Result Comment: A hematocrit value greater than 55% may lead to inaccurate results in coagulation testing. Patients having hematocrit values >55% require a special collection tube for coagulation studies. Please contact the laboratory at [phone] for redraw instructions.Performed By: #### CRP, LACTIC, ESR, CMP, CUBLD, CBC #### [facility] [address] [place] [address] USASerum globulin measurement by calculation (mass/volume) Ordered By: Mildred Muñoz on 58-16-0697Oztjllzl (S) [Mass/Vol]2.2 g/dL NormalPaulding County HospitalComment on above:Performed By: #### CRP, LACTIC, ESR, CMP, CUBLD, CBC #### [facility] [address] [place] [address] USASerum or plasma albumin/globulin mass ratioOrdered By: Mildred Muñoz on 24-81-6351Eonezbl/Globulin [Mass ratio]1.5 {ratio}Normal [facility] HospitalComment on above:Performed By: #### CRP, LACTIC, ESR, CMP, CUBLD, CBC #### [facility] [address] [place] [address] USASerum or plasma anion gap determinationOrdered By: Mildred Muñoz on 21-74-8336Exyqr gap [Moles/Vol]11.5 mmol/LNormal6.0-15.0 [facility] HospitalComment on above:Performed By: #### CRP, LACTIC, ESR, CMP, CUBLD, CBC #### [facility] [address] [place] [address] USASodium [Moles/volume] in Serum or PlasmaOrdered By: Mildred Muñoz on 04-56-1577Vwvyny [Moles/Vol]138 mmol/POhsgga470-008DlhizbbjjPaulding County HospitalComment on above:Performed By: #### CRP, LACTIC, ESR, CMP, CUBLD, CBC #### [facility] [address] [place] [address] USAUrea nitrogen [Mass/volume] in Serum or PlasmaOrdered By: Mildred Muñoz on 76-54-0825Arou nitrogen [Mass/Vol]24 mg/dLNormal7-25 [facility] HospitalComment on above:Performed By: #### CRP, LACTIC, ESR, CMP, CUBLD, CBC #### [facility] [address] [place] [address] USAaPTT in Platelet poor plasma by Coagulation assayOrdered By: Mildred Muñoz on 72-23-8924uQLU Coag (PPP) [Time]34.7 s25.1-36.5 [facility] HospitalComment on above:A hematocrit value greater than 55% may lead to inaccurate results in coagulation testing. Patientshaving hematocrit values >55% require a special collection tube for coagulation studies. Please contact the laboratory at [phone] for redraw instructions. Alanine aminotransferase [Enzymatic activity/volume] in Serum or PlasmaOrdered By: Dickson Muse on 57-56-2202WQQ [Catalytic activity/Vol]18 U/LNormal7-52 [facility] HospitalComment on above:Performed By: #### CRP, LACTIC, ESR, CMP, CUBLD, CBC #### [facility] [address] [place] [address] USAAlbumin [Mass/volume] in Serum or Plasma by Bromocresol green (BCG) dye binding methoOrdered By: Dickson Muse on 44-76-6155Sslmghh BCG dye [Mass/Vol]3.3 g/dLLow3.5-5.7FACMC Healthcare System GlenbeighAlkaline phosphatase [Enzymatic activity/volume] in Serum or PlasmaOrdered By: Dickson Muse on 61-20-1503FXE [Catalytic activity/Vol]156 U/IApxj92-430RonbofnyrPaulding County HospitalComment on above:Performed By: #### CRP, LACTIC, ESR, CMP, CUBLD, CBC #### [facility] [address] [place] [address] USAAspartate aminotransferase [Enzymatic activity/volume] in Serum or PlasmaOrdered By: Dickson Muse on 52-73-0392DHS [Catalytic activity/Vol]17 U/TLrwrcl02-68PzyyzmotgPaulding County HospitalComment on above: Performed By: #### CRP, LACTIC, ESR, CMP, CUBLD, CBC #### [facility] [address] [place] [address] USABasophils [#/volume] in Blood by Automated countOrdered By: Dickson Muse on 92-50-0665Tkxdvvqwj (Bld) [#/Vol]0.1 10*3/uLNormal0.0-0.2 [facility] HospitalComment on above:Performed By: #### CRP, LACTIC, ESR, CMP, CUBLD, CBC #### [facility] [address] [id number] USABasophils/100 leukocytes in Blood by Automated count Ordered By: Dicksonalisson Muse on 89-97-0574Vptxcdbou/100 WBC (Bld)0.8 %Normal. [facility] HospitalComment on above:Performed By: #### CRP, LACTIC, ESR, CMP, CUBLD, CBC #### [facility] [address] [place] [address] USABilirubin.total [Mass/volume] in Serum or PlasmaOrdered By: Dickson Muse on 57-65-6069Xbpnakbcl [Mass/Vol]1.5 mg/dLHigh0.3-1.0[facility] HospitalComment on above:Samples from patients who have taken Naproxen have shown spurious elevation in Total Bilirubin levels. A metabolite of Naproxen, O-desmethylnaproxen, has been shown to interfere with the Jendrassik-Grof method for measuring Total Bilirubin.Result Comment: Samples from patients who have taken Naproxen have shown spurious elevation in Total Bilirubin levels. A metabolite of Naproxen, O-desmethylnaproxen, has been shown to interfere with the Jendrassik-Grof method for measuring Total Bilirubin.Performed By: #### CRP, LACTIC, ESR, CMP, CUBLD, CBC #### [facility] [address] [place], [place] [address] USABlood Cultureon 94-16-8497Jkcmtwbs identified Cx Nom (Bld) NO GROWTH 5 DAYS PERFORMED BY: [place] [id number] PATHOLOGIST [employer] SAVITA JEFFERSON M.D.[facility] Physician GroupComment on above: Performed By: #### CRP, LACTIC, ESR, CMP, CUBLD, CBC #### [facility] [address] [place] [address] USABacteria identified Cx Nom (Bld)NO GROWTH 5 DAYS PERFORMED BY: [place] [id number] PATHOLOGIST [employer] SAVITA JEFFERSON M.D.NormalThe [facility] Physician GroupComment on above: Performed By: #### CRP, LACTIC, ESR, CMP, CUBLD, CBC #### [facility] [address] [place] [address] USAC reactive protein [Mass/volume] in Serum or PlasmaOrdered By: Dickson Muse on 33-14-8966ZBA [Mass/Vol]0.6 mg/dLHigh0.0-0.5FACMC Healthcare System GlenbeighC-Reactive Proteinon 89-26-7238R-Reactive Protein0.6 mg/dLHigh0.0-0.5The [facility] Physician GroupComment on above:Result Comment: PERFORMED BY: [place] [id number] PATHOLOGIST [employer] SAVITA JEFFERSON M.D.Performed By: #### CRP, LACTIC, ESR, CMP, CUBLD, CBC #### [place] [address] USACalcium [Mass/volume] in Serum or PlasmaOrdered By: Dickson Muse on 80-95-6126Efgqfzc [Mass/Vol]9.1 mg/dLNormal8.6-10.3FACMC Healthcare System GlenbeighComment on above:Performed By: #### CRP, LACTIC, ESR, CMP, CUBLD, CBC #### [place] [address] USACarbon dioxide, total [Moles/volume] in Serum or Plasma Ordered By: Dickson Muse on 97-92-5240QN6 [Moles/Vol]27.9 mmol/PWneals66.0-31.0 [facility] HospitalComment on above:Performed By: #### CRP, LACTIC, ESR, CMP, CUBLD, CBC #### [facility] [address] [id number] USAChloride [Moles/volume] in Serum or PlasmaOrdered By: Dickson Muse on 06-95-7942Qkhkaayj [Moles/Vol]102 mmol/JLudpdu78-220KistkmtdbPaulding County HospitalComment on above:Performed By: #### CRP, LACTIC, ESR, CMP, CUBLD, CBC #### [place] [id number] USAComplete Blood Count Auto Diffon 22-47-5007Bvtn Corpuscular HGB Conc31.9 g/dLLow32.0-35.0The [facility] Physician GroupComment on above:Performed By: #### CRP, LACTIC, ESR, CMP, CUBLD, CBC #### [place] [address] USAMonocytes/100 WBC (Bld)22.89 %High0.00-20.00The [facility] Physician GroupComment on above:Result Comment: For adults in ED, MDW > 20.0 may be associated with a higher risk of sepsis during the first 12 hrs of hospital admissionPerformed By: #### CRP, LACTIC, ESR, CMP, CUBLD, CBC #### [facility] [address] [place] [address] USANRBC%0.0 /100{WBC}Normal0-0.5The [facility] Physician Group Comment on above:Performed By: #### CRP, LACTIC, ESR, CMP, CUBLD, CBC #### [place] [address] USAWhite Blood Count8.8 [CFU]/mLNormal3.8-11.6The [facility] Physician GroupComment on above:Performed By: #### CRP, LACTIC, ESR, CMP, CUBLD, CBC #### [place] [address] USAComprehensive Metabolic Panelon 06-79-4790Ukezluv [Mass/Vol]3.3 g/dLLow3.5-5.7The [facility] Physician GroupComment on above: Performed By: #### CRP, LACTIC, ESR, CMP, CUBLD, CBC #### [place] [address] USACreatinine Clr Calc Hkirvzzn61.36NormalThe [facility] Physician GroupComment on above:Performed By: #### CRP, LACTIC, ESR, CMP, CUBLD, CBC #### [place] [address] USAGFR/1.73 sq M.predicted MDRD (S/P/Bld) [Vol rate/Area] 40.669 mL/min/{1.73_m2}NormalThe [facility] Physician GroupComment on above: Performed By: #### CRP, LACTIC, ESR, CMP, CUBLD, CBC #### [place] [address] USACreatinine [Mass/volume] in Serum or PlasmaOrdered By: Dickson Muse on 91-58-4370Jhfezagrnl [Mass/Vol]1.38 mg/dLHigh0.60-1.20[facility] HospitalComment on above:Performed By: #### CRP, LACTIC, ESR, CMP, CUBLD, CBC #### [place] [address] USAEosinophils [#/volume] in Blood by Automated countOrdered By: Dickson Muse on 82-40-3107Xuvnddzkphy (Bld) [#/Vol]0.1 10*3/uLNormal0.0-0.45 [facility] HospitalComment on above:Performed By: #### CRP, LACTIC, ESR, CMP, CUBLD, CBC #### [place] [address] USAEosinophils/100 leukocytes in Blood by Automated count Ordered By: Dickson Muse on 61-29-1625Kjnixanrplp/100 WBC (Bld)1.0 %Normal. [facility] HospitalComment on above:Performed By: #### CRP, LACTIC, ESR, CMP, CUBLD, CBC #### [place] [address] USAErythrocyte Sedimentation Rateon 38-36-1834WIK (Bld) [Velocity]10 mm/hNormal0-29The [facility] Physician GroupComment on above:Result Comment: PERFORMED BY: [place] [id number] PATHOLOGIST [employer] SAVITA JEFFERSON M.D.Performed By: #### CRP, LACTIC, ESR, CMP, CUBLD, CBC #### [place] [address] USAErythrocyte distribution width [Ratio] by Automated count Ordered By: Dickson Muse on 97-15-7174Zjgdqtjqbai distribution width (RBC) [Ratio]23.9 %High11.9-15.3FAC[facility] Healthcare System GlenbeighComment on above: Performed By: #### CRP, LACTIC, ESR, CMP, CUBLD, CBC #### [facility] [address] [place] [address] USAErythrocyte sedimentation rate by Photometric method Ordered By: Dickson Muse on 32-11-9381KGQ Photometric method (Bld) [Velocity]10 mm/hr0-29Paul[facility] County HospitalErythrocytes [#/volume] in Blood by Automated countOrdered By: Dickson Muse on 19-99-9367AES (Bld) [#/Vol]4.43 10*6/uLNormal3.60-5.00[facility] HospitalComment on above: Performed By: #### CRP, LACTIC, ESR, CMP, CUBLD, CBC #### [place] [address] USAGlomerular filtration rate [Volume Rate/Area] in Serum, Plasma or Blood by CreatinineOrdered By: Dickson Muse on 05-48-4838Rygvfqdlrz filtration rate [Volume Rate/Area] in Serum, Plasma or Blood by Wftsudmmkv01.669 mL/MinPaulding County HospitalGlucose [Mass/volume] in Serum or Plasma Ordered By: Dickson Muse on 80-11-8665Itvofha [Mass/Vol]218 mg/eXPeru34-104 [facility] HospitalComment on above:ADA recommended reference rangeRandom Glucose Reference Range is dependent on time and content of last meal. Glucose of more than 200 mg/dL in a nonstressed, ambulatory subject supports the diagnosisof Diabetes Mellitus.Result Comment: Random Glucose Reference Range is dependent on time and content of last meal. Glucose of more than 200 mg/dL in a nonstressed, ambulatory subject supports the diagnosis of Diabetes Mellitus. ADA recommended reference rangePerformed By: #### CRP, LACTIC, ESR, CMP, CUBLD, CBC #### [facility] [address] [place] [address] USAHematocrit [Volume Fraction] of Blood by Automated count Ordered By: Dickson Muse on 11-19-6635Mgodbhlrhg (Bld) [Volume fraction]38.1 % Psispc63.0-46.4F[facility] System GlenbeighComment on above:Performed By: #### CRP, LACTIC, ESR, CMP, CUBLD, CBC #### [facility] [address] [place] [id number] USAHemoglobin [Mass/volume] in BloodOrdered By: Dickson Muse on 91-55-6242Nonnurjkks (Bld) [Mass/Vol]12.2 g/mFSjnzuj70.8-15.4F[facility] GlenbeighComment on above:Performed By: #### CRP, LACTIC, ESR, CMP, CUBLD, CBC #### [facility] [address] [place] [id number] USALaboratory - Microbiology and Antimicrobial susceptibility Ordered By: Dickson Muse on 97-48-6524Nkhxlzws identified Cx Nom (Bld)NO GROWTH 5 DAYSPaulding County HospitalBacteria identified Cx Nom (Bld)NO GROWTH 5 DAYSPaulding County HospitalLactate [Moles/volume] in Serum or PlasmaOrdered By: Dickson Muse on 93-10-8477Ooqhudr [Moles/Vol]1.5 mmol/LNormal 0.5-1.9[facility] HospitalComment on above:Lactic Acid reference range has been updated to 0.5 1.9 mmol/L and the critical range of 2.[address]Result Comment: Lactic Acid reference range has been updated to 0.5 ? 1.9 mmol/L and the critical range of 2.0 or greater. PERFORMED BY: [place] [id number] PATHOLOGIST [employer] SAVITA JEFFERSON M.D.Performed By: #### CRP, LACTIC, ESR, CMP, CUBLD, CBC #### [address] [address] USALeukocytes [#/volume] corrected for nucleated erythrocytes in Blood by Automated counOrdered By: Dickson Muse on 12-75-9508DXB corrected for nucl RBC Auto (Bld) [#/Vol]8.8 10*3/uL3.8-11.6F[facility] GlenbeighLeukocytes [#/volume] in Blood by Automated countOrdered By: Dickson Muse on 41-71-6949IJP (Bld) [#/Vol]8.8 10*3/uLNormal3.8-11.6FAC[facility] GlenbeighComment on above:Performed By: #### CRP, LACTIC, ESR, CMP, CUBLD, CBC #### [facility] [address] [place] [address] USALymphocytes [#/volume] in Blood by Automated countOrdered By: Dickson Muse on 73-34-6952Gnkwjubgkas (Bld) [#/Vol]0.5 10*3/uLLow1.00-4.8 [facility] HospitalComment on above:Performed By: #### CRP, LACTIC, ESR, CMP, CUBLD, CBC #### [facility] [address] [place] [id number] USALymphocytes/100 leukocytes in Blood by Automated count Ordered By: Dickson Muse on 93-60-8224Cexssoetuge/100 WBC (Bld)5.7 %Normal. [facility] HospitalComment on above:Performed By: #### CRP, LACTIC, ESR, CMP, CUBLD, CBC #### [facility] [address] [place], [place] [address] [facility] [Entitic mass] by Automated countOrdered By: Dickson Muse on 09-48-4598YCD (RBC) [Entitic mass]27.5 rxQzesuh08.7-34.3FAC[facility] GlenbeighComment on above:Performed By: #### CRP, LACTIC, ESR, CMP, CUBLD, CBC #### [facility] [address] [place], [place] [address] [facility] Auto (RBC) [Mass/Vol]Ordered By: Dickson Muse on 08-64-2350QPNE (RBC) [Mass/Vol]31.9 g/dLLow32.0-35.0Paul[facility] County HospitalMCV [Entitic volume] by Automated countOrdered By: Dickson Muse on 65-76-1274BFI (RBC) [Entitic vol]86.1 jCOnmchc03-401HgoispycpPaulding County HospitalComment on above:Performed By: #### CRP, LACTIC, ESR, CMP, CUBLD, CBC #### [facility] [address] [place] [address] USAMonocyte distribution width [Entitic volume] in Blood by AutomatedOrdered By: Dickson Muse on 16-76-8570Nltqxdpv distribution width Auto (Bld) [Entitic vol]22.89 %High0.00-20.00[facility] HospitalComment on above:For adults in ED, MDW > 20.0 may be associated with a higher risk of sepsis during the first 12 hrs of hospital admissionMonocytes [#/volume] in Blood by Automated countOrdered By: Dickson Muse on 99-74-1596Iajocibhl (Bld) [#/Vol]0.9 10*3/uLHigh0.0-0.8[facility] HospitalComment on above: Performed By: #### CRP, LACTIC, ESR, CMP, CUBLD, CBC #### [facility] [address] [place] [id number] USAMonocytes/100 leukocytes in Blood by Automated count Ordered By: Dickson Muse on 42-94-3743Sglkenllv/100 WBC (Bld)9.7 %Normal. [facility] HospitalComment on above:Performed By: #### CRP, LACTIC, ESR, CMP, CUBLD, CBC #### [facility] [address] [place] [address] USANeutrophils [#/volume] in Blood by Automated countOrdered By: Dickson Muse on 57-37-4954Tcbtipwzxkz (Bld) [#/Vol]7.2 10*3/uLNormal1.8-7.7 [facility] HospitalComment on above:Performed By: #### CRP, LACTIC, ESR, CMP, CUBLD, CBC #### [facility] [address] [place] [id number] USANeutrophils/100 leukocytes in Blood by Automated count Ordered By: Dickson Muse on 81-35-8900Nbaznqnrdbr/100 WBC (Bld)82.8 %Normal. [facility] HospitalComment on above:Performed By: #### CRP, LACTIC, ESR, CMP, CUBLD, CBC #### [facility] [address] [place] [address] USANo Panel InformationOrdered By: Dickson Muse on 03-25-2025 Pharmacy Creatinine Clearance (Chem42.36[facility] Nucleated erythrocytes [Presence] in Blood by Automated countOrdered By: Dickson Muse on 72-05-7733Lfpmorqev RBC Auto Ql (Bld)0.0 /100{WBC}0-0.5FAC[facility] Healthcare [facility] GlenbeighPlatelet mean volume [Entitic volume] in Blood by Automated countOrdered By: Dickson Muse on 01-05-0577Gmanpuxk mean volume (Bld) [Entitic vol]7.9 fLNormal6.3-10.7FACMC Healthcare System GlenbeighComment on above:Performed By: #### CRP, LACTIC, ESR, CMP, CUBLD, CBC #### [facility] [address] [place] [address] USAPlatelets [#/volume] in Blood by Automated countOrdered By: Dickson Muse on 19-40-3453Giedrpllt (Bld) [#/Vol]259 10*3/yWJcwyzw689-122 [facility] HospitalComment on above:Performed By: #### CRP, LACTIC, ESR, CMP, CUBLD, CBC #### [facility] [address] [place] [id number] USAPotassium [Moles/volume] in Serum or PlasmaOrdered By: Dickson Muse on 62-01-5907Hdqtysumo [Moles/Vol]4.3 mmol/LNormal3.5-5.1FACMC Healthcare System GlenbeighComment on above:Hemolysis is present at a level that could interfere with the result.Contact lab if redraw is requiredResult Comment: Hemolysis is present at a level that could interfere with the result. Contact lab if redraw is requiredPerformed By: #### CRP, LACTIC, ESR, CMP, CUBLD, CBC #### [facility] [address] [place] [id number] USAProtein [Mass/volume] in Serum or PlasmaOrdered By: Dickson Muse on 86-16-3875Fyodscs [Mass/Vol]5.8 g/dLLow6.4-8.9Fire[facility] Regional Medical CenterComment on above:Performed By: #### CRP, LACTIC, ESR, CMP, CUBLD, CBC #### [facility] [address] [place] [address] USASerum globulin measurement by calculation (mass/volume) Ordered By: Dickson Muse on 18-08-8909Wpbjiujh (S) [Mass/Vol]2.5 g/dLNormal [facility] HospitalComment on above:Performed By: #### CRP, LACTIC, ESR, CMP, CUBLD, CBC #### [facility] [address] [place] [address] USASerum or plasma albumin/globulin mass ratioOrdered By: Dickson Muse on 13-09-4435Vlyszov/Globulin [Mass ratio]1.3 {ratio}Normal [facility] HospitalComment on above:Performed By: #### CRP, LACTIC, ESR, CMP, CUBLD, CBC #### [place] [address] USASerum or plasma anion gap determinationOrdered By: Dickson uMse on 55-77-7775Dyexn gap [Moles/Vol]9.4 mmol/LNormal6.0-15.0[facility] HospitalComment on above:Performed By: #### CRP, LACTIC, ESR, CMP, CUBLD, CBC #### [place] [address] USASodium [Moles/volume] in Serum or PlasmaOrdered By: Dickson Muse on 47-77-9450Jsjcds [Moles/Vol]135 mmol/ZCwt619-180FqcbobhbmPaulding County HospitalComment on above:Performed By: #### CRP, LACTIC, ESR, CMP, CUBLD, CBC #### [facility] [address] [place] [address] USAUrea nitrogen [Mass/volume] in Serum or PlasmaOrdered By: Dickson Muse on 77-79-9440Bzvt nitrogen [Mass/Vol]24 mg/dLNormal7-25[facility] HospitalComment on above:Performed By: #### CRP, LACTIC, ESR, CMP, CUBLD, CBC #### [address] [address] USAX-ray reportOrdered By: Hasmukh Koenig on 87-25-8677Qzbsm reportMER[facility] Main [place] [address] XRay Report Signed Patient: Laura Lawson MR#: [id number] : 1950 Acct:[id number] Age/Sex: 74 / F ADM Date: 5 Loc: ER Room: Type: [facility] ER Attending Dr: Copies to: Dickson Muse PA-C~ Ordering Provider: Dickson Muse PA-C Date of Service: 03/25/25 XR/XR foot BI 3V: concerned for osteo XR foot BI 3V 03/25/2025 3:12 PM SIGNS AND SYMPTOMS: concerned for osteo PROTOCOL: Frontal, lateral, and oblique radiographs of the bilateral feet. COMPARISON: None FINDINGS: Degenerative changes are noted in the tarsometatarsal junctions bilaterally leftgreater than right.There is mild narrowing of the metatarsophalangeal joint space on the left. There is no evidence offracture or dislocation. There is diffuse soft tissue swelling which is greatest along the dorsum of the right foot. There is plantar and Achilles surface calcaneal spurring left greater than right. Vascular calcifications are present bilaterally. XR/XR foot BI 3V IMPRESSION: No acute bony injury. Degenerative changes are noted bilaterally, left greater than right as above. Diffuse soft tissue swelling is noted which is greatest along the dorsum of the right foot. No osteolytic or bony destructive change to suggest osteomyelitis. Impression dictated by: Hasmukh Koenig M.D. 03/25/2025 3:35 PM Dictation Location: [facility]--23 Transcribed By: [facility] 03/25/251534 Dictated By: Hasmukh Koenig II, MD 03/25/251519 Signed By: 03/25/251534 [facility] Work Phone: XR foot BI 3Von 83-93-4272LX foot BI 3VMERCY [facility] Main [address] [address] XRay Report Signed Patient: Laura Lawson MR#: [id number] : 1950 Acct:[id number] Age/Sex: 74 / F ADM Date: 03/25/25 Loc: ER Room: Type: [facility] ER Attending Dr: Copies to: Dickson Muse PA-C Ordering Provider: Dickson Muse PA-C Date of Service: 03/25/25 XR/XR foot BI 3V: concerned for osteo XR foot BI 3V 03/25/2025 3:12 PM SIGNS AND SYMPTOMS: concerned for osteo PROTOCOL: Frontal, lateral, and oblique radiographs of the bilateral feet. COMPARISON: None FINDINGS: Degenerative changes are noted in the tarsometatarsal junctions bilaterally left greater than right. There is mild narrowing of the metatarsophalangeal joint space on the left. There is no evidence of fracture or dislocation. There is diffuse soft tissue swelling which is greatest along the dorsum of the right foot. There is plantar and Achilles surface calcaneal spurring left greater than right. Vascular calcifications are present bilaterally. XR/XR foot BI 3V IMPRESSION: No acute bony injury. Degenerative changes are noted bilaterally, left greater than right as above. Diffuse soft tissue swelling is noted which is greatest along the dorsum of the right foot. No osteolytic or bony destructive change to suggest osteomyelitis. Impression dictated by: Hasmukh Koenig M.D. 03/25/2025 3:35 PM Dictation Location: [place] [address] Transcribed By: [facility] 03/25/25 1535 Dictated By: Hasmukh Koenig II, MD 03/25/25 1520 Signed By: 03/25/25 1535[facility] Physician GroupITPon 28-30-4804[place], [place] [address] Cardiac Rehab Report Signed Patient: LAURA LAWSON MR#: [id number] : 1950 Acct:[id number] Age/Sex: 74 / F ADM Date: 03/14/25 Loc: CR Attending Dr: Misty Edwards M.D. Ordering Physician: Jerry,Misty M.D. 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 Interpretive Statements Patient may continue cardiac rehab as outlined in the treatment plan. Electronically Signed On 03-16-2025 17:34:12 EDT by RUDY ZENDEJAS M.D. Dictated By: RUDY ZENDEJAS Signed By: 03/16/25173303/16/251733 DD/ 1 TD/TT: Quality Project Manager:TBHRadiology, Radiologist, - 03/16/2025 [place] [address] Cardiac Rehab Report Signed Patient: LAURA LAWSON MR#: [id number] : 1950 Acct:[id number] Age/Sex: 74 / F ADM Date: 03/14/25 Loc: CR Attending Dr: Misty Edwards M.D. Ordering Physician: Misty Edwards M.D. 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 Interpretive Statements Patient may continue cardiac rehab as outlined in the treatment plan. Electronically Signed On 03-16-2025 17:34:12 EDT by RUDY ZENDEJAS M.D. Dictated By: RUDY ZENDEJAS Signed By: 03/16/25173303/16/251733 DD/ 1 TD/TT: Quality Project Manager: REYES HealthcareRadiology Study observation (narrative)[facility] HealthcareITPOrdered By: Radiologist Radiology on 45-88-8546BDCP Healthcare Work Phone: Orders Onlyon 81-78-2290Hznxot [id number] Laura Lawson 1950 F Date Provider Department Center 03/15/2025 MISTY ESPARZA [facility] CARD [facility] Family History Problem Relation Age of Onset JABARI disease Mother Heart attack Father Family Status - Relation Status Age at Mother Father DeceasedNormalUniversAdams County HospitalOffice Visiton 62-06-5876Pkbqnx-up [id number] Laura Lawson 1950 F Date Provider Department Center 03/14/2025 RUDY SALAZAR [facility] Family History Problem Relation Age of Onset JABARI disease Mother Heart attack Father Family Status - Relation Status Age at Mother Father Level of Service:00050 [place] OFFICE/OUTPATIENT ESTABLISHED MOD MDM 30 [facility] - Hemat[facility] and Cell countson 96-64-9970EbQ0e (Bld) [Mass fraction]10.9 %[facility] HealthcareNo Panel Informationon 52-90-7274LMQD HealthcareITPon 59-83-5140[place], [place] [address] Cardiac Rehab Report Signed Patient: LAURA LAWSON MR#: [id number] : 1950 Acct:[id number] Age/Sex: 74 / F ADM Date: 12/09/24 Loc: CR Attending Dr: Misty Edwards M.D. Ordering Physician: RUDY ZENDEJAS Date of Service: 02/14/25 Procedure(s): ITP Accession Number(s): [id number] cc: [facility] Test Date: 2025-02-14 Pat Name: LAURA LAWSON Department: Room: - Gender: Female Tube And Manifold Builder: : 1950 Requested By: RUDY ZENDEJAS M.D. Order Number: [id number] Reading MD: RUDY ZENDEJAS M.D. Interpretive Statements Patient may continue cardiac rehab as outlined in the treatment plan. Electronically Signed On 02-23-2025 18:00:31 EDT by RUDY ZENDEJAS M.D. Dictated By: RUDY ZENDEJAS Signed By: 02/23/25179902/23/25 1800 DD/ 0748 TD/TT: Quality Project Manager:DANIELHRadiolognia, Delbert, - 02/23/2025 [place] [address] Cardiac Rehab Report Signed Patient: LAURA LAWSON MR#: [id number] : 1950 Acct:[id number] Age/Sex: 74 / F ADM Date: 12/09/24 Loc: CR Attending Dr: Misty Edwards M.D. Ordering Physician: RUDY ZENDEJAS Date of Service: 02/14/25 Procedure(s): ITP Accession Number(s): [id number] cc: [facility] Test Date: 2025-02-14 Pat Name: LAURA LAWSON Department: Room: - Gender: Female Tube And Manifold Builder: : 1950 Requested By: RUDY ZENDEJAS M.D. Order Number: [id number] Reading MD: RUDY ZENDEJAS M.D. Interpretive Statements Patient may continue cardiac rehab as outlined in the treatment plan. Electronically Signed On 02-23-2025 18:00:31 EDT by RUDY ZENDEJAS M.D. Dictated By: RUDY ZENDEJAS Signed By: 02/23/25179902/23/25 1800 DD/ 0748 TD/TT: Quality Project Manager: REYES LandryITPOrdered By: Radiologist Radiology on 71-34-2057X[facility]J [facility] Work Phone: ITPon 65-89-2825Sigrcmpxu Study observation (narrative)REYES HealthcareOrders Onlyon 38-14-4231Wqwfmh [id number] Laura Lawson 1950 F Date Provider Department Center 02/13/2025 MISTY ESPARZA [facility] CARD [facility] Family History Problem Relation Age of Onset JABARI disease Mother Heart attack Father Family Status - Relation Status Age at Mother Father DeceasedNormalUniProMedica Defiance Regional HospitalLaboratory - Hematology and Cell countson 76-31-1405KsS9d (Bld) [Mass fraction]11.2 %NOMS HealthcareNo Panel Informationon 57-32-4679Kasibwglqyfsfc and review of laboratory results AbnormalNOMS HealthcareNOMS HealthcareOffice Visiton 13-80-9122Ajtegy-up visit [id number] Laura Lawson 1950 F Date Provider Department Center 01/18/2025 MISTY ESPARZA CARD [facility] Family History Problem Relation Age of Onset JABARI disease Mother Heart attack Father Family Status - Relation Status Age at Mother Father Level of Service:01207 [place] OFFICE/OUTPATIENT ESTABLISHED LOW MDM 20 [facility] Glen[facility]ighITPon 91-30-2020[place]pp[place], [place] [address] Cardiac Rehab Report Signed Patient: LAURA LAWSON MR#: [id number] : 1950 Acct:[id number] Age/Sex: 74 / F ADM Date: 12/09/24 Loc: CR Attending Dr: Misty Edwards M.D. Ordering Physician: RUDY ZENDEJAS Date of Service: 01/14/25 Procedure(s): ITP Accession Number(s): [id number] cc: [facility] Test Date: 2025-01-14 Pat Name: LAURA LAWSON Department: Room: - Gender: Female Tube And Manifold Builder: : 1950 Requested By: RUDY ZENDEJAS M.D. Order Number: [id number] Veronica MD: RUDY ZENDEJAS M.D. Interpretive Statements Patient may continue cardiac rehab as outlined in the treatment plan. Electronically Signed On 01-14-2025 10:28:12 EDT by RUDY ZENDEJAS M.D. Dictated By: RUDY ZENDEJAS Signed By: 01/14/25 1028 01/14/25 1028 DD/ 0945 TD/TT: Quality Project Manager:Delbert Vaca MD - 01/14/[address] [address] Cardiac Rehab Report Signed Patient: LAURA LAWSON MR#: [id number] : 1950 Acct:[id number] Age/Sex: 74 / F ADM Date: 12/09/24 Loc: CR Attending Dr: Misty Edwards M.D. Ordering Physician: RUDY ZENDEJAS Date of Service: 01/14/25 Procedure(s): ITP Accession Number(s): [id number] cc: [facility] Test Date: 2025-01-14 Pat Name: LAURA LAWSON Department: Room: - Gender: Female Tube And Manifold Builder: : 1950 Requested By: RUDY ZENDEJAS M.D. Order Number: [id number] Reading MD: RUDY ZENDEJAS M.D. Interpretive Statements Patient may continue cardiac rehab as outlined in the treatment plan. Electronically Signed On 01-14-2025 10:28:12 EDT by RUDY ZENDEJAS M.D. Dictated By: RUDY ZENDEJAS Signed By: 01/14/25 1028 01/14/25 1028 DD/ TD/TT: Quality Project Manager: REYES HealthcareRadiology Study observation (narrative)[facility] HealthcareITPOrdered By: Radiologist Radiology on 38-45-0628C[facility]I [facility] Work Phone: Orders Onlyon 45-95-7439Haizfn [id number] Laura Lawson 1950 F Date Provider Department Center 01/13/2025 MISTY ESPARZA [facility] CARD [facility] Family History Problem Relation Age of Onset JABARI disease Mother Heart attack Father Family Status - Relation Status Age at Mother Father DeceasedNormalUniversity [facility] HospitalLaboratory - Hematology and Cell countson 26-19-7271JwY1q (Bld) [Mass fraction]10.4 %NOMS HealthcareNo Panel Informationon 37-53-6321MUCX HealthcareOrders Onlyon 78-02-5426Wkarit Only [id number] Laura Lawson 1950 F Date Provider Department Center 12/21/2024 [id number], HISTORICAL CARD [facility] Family History Problem Relation Age of Onset JABARI disease Mother Heart attack Father Family Status - Relation Status Age at Mother Father DeceasedNormalUniversity of [facility] BASIC METABOLIC PANELon 46-75-0682Osxsk gap [Moles/Vol]12.7 mmol/LNOMS HealthcareCalcium [Mass/Vol]9.9 mg/dL8.5 - 10.1 mg/dLNOMS HealthcareChloride [Moles/Vol]101 mmol/L 98 - 107 mmol/LNOMS HealthcareCO2 [Moles/Vol]30.4 mmol/L21.0 - 32.0 mmol/LNOMS HealthcareCreatinine [Mass/Vol]1.08 mg/dLHigh0.55 - 1.02 mg/dLNOGA Healthcare GFR/1.73 sq M.predicted CKD-EPI (S/P/Bld) [Vol rate/Area]>60>=60 mL/min/1.73m 2 NOMS HealthcareGlucose [Mass/Vol]394 mg/wYXlwu82 - 106 mg/dLNOGA Healthcare Potassium [Moles/Vol]4.1 mmol/L3.5 - 5.1 mmol/LNOMS HealthcareSodium [Moles/Vol] 140 mmol/L136 - 145 mmol/LNOMS HealthcareTBH EGFR-NON AF LUPPIQKH71Mxx>=60 mL/min/1.73m 2NOMS HealthcareUrea nitrogen [Mass/Vol]25 mg/dLHigh7.0 - 18.0 mg/dLNOGA HealthcareUrea nitrogen/Creatinine [Mass ratio]23.1 mg/mgNOMS HealthcareALL PRO BNPon 26-57-1961RC PRO B TYPE NATRIURETIC ZZTT27760 pg/mL Critically highNINF - 900.0 pg/mLNOMS HealthcareComment on above:RESULTS CALLED TO ISREAL HOLLINS RNNo Panel Informationon 41-89-9150Xcexnhqarnzddc and review of laboratory resultsAbnormalNOGA HealthcareCLINISYNCNOMS HealthcareOffice Visit on 90-10-6975Ywjnww-up [id number] Laura Lawson 1950 F Date Provider Department Center 12/20/2024 03029-LFOGQINIRALI MILNER [facility] Family History Problem Relation Age of Onset JABARI disease Mother Heart attack Father Family Status - Relation Status Age at Mother Father Level of Service:65526 [place] OFFICE/OUTPATIENT ESTABLISHED MOD MDM 30 [facility] GlenbeighITPon 51-35-4220[place], [place] [address] Cardiac Rehab Report Signed Patient: LAURA LAWSON MR#: [id number] : 1950 Acct:[id number] Age/Sex: 74 / F ADM Date: 12/09/24 Loc: CR Attending Dr: Misty Edwards M.D. Ordering Physician: Jorje Camarillo D.O. 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 She is encouraged to participate in cardiac rehabilitation and be compliant with cardiology recommendations, especially regarding diet and fluid restrictions. Electronically Signed On 12-15-2024 10:11:58 EDT by Jorje Camarillo Dictated By: Jorje Camarillo D.O. Signed By: 12/15/24 1012 12/15/24 1012 DD/ 0941 TD/TT: Quality Project Manager:TBHRadiology, Radiologist, - 12/15/2024 The [place] [id number] Cardiac Rehab Report Signed Patient: LAURA LAWSON MR#: [id number] : 1950 Acct:[id number] Age/Sex: 74 / F ADM Date: 12/09/24 Loc: CR Attending Dr: Misty Edwards M.D. Ordering Physician: Jorje Camarillo D.O. Date of Service: 12/15/24 Procedure(s): ITP Accession Number(s): [id number] cc: [facility] Test Date: 2024-12-15 Pat Name: LAURA LAWSON Department: Room: - Gender: Female Tube And Manifold Builder: : 1950 Requested By: Jorje Camarillo Order Number: [id number] Reading MD: Jorje Camarillo Interpretive Statements Patient appears disinterested in contributing to her own health. She is encouraged to participate in cardiac rehabilitation and be compliant with cardiology recommendations, especially regarding diet and fluid restrictions. Electronically Signed On 12-15-2024 10:11:58 EDT by Jorje Camarillo Dictated By: Jorje Camarillo D.O. Signed By: 12/15/24 1012 12/15/24 1012 DD/ TD/TT: Quality Project Manager: REYES HealthcareRadiology Study observation (narrative)[facility] HealthcareITPOrdered By: Radiologist Radiology on 33-04-8494KFJA Healthcare Work Phone: XR CHEST 2Von 83-45-2629[place]ml[place], [place] [address] XRay Report Signed Patient: LAURA LAWSON MR#: [id number] : 1950 Acct:[id number] Age/Sex: 74 / F ADM Date: 12/14/24 Loc: RAD Attending Dr: Misty Edwards M.D. Ordering Physician: Misty Edwards M.D. Date of Service: 12/14/24 Procedure(s): XR chest 2V Accession Number(s): [id number] cc: ABRAHAM CESAR ; Misty Edwards M.D. [address] [address] Patient Name: LAURA LAWSON MRN: [id number] date: 1950 Sex: F Assigned Patient Location: RAD Current Patient Location: RAD Accession/Order Number: [id number] Exam Date: 12/14/2024 15:25 Report Date: 12/14/2024 [...] Devlin M.D. 12/14/2024 3:26 PM Dictation Location: [place] [address] Electronically authenticated by: [id number] Y Date: 12/14/2024 15:26 Dictated By: Amaury Devlin D.O. Signed By: 12/14/24 1529 DD/ 1526 TD/TT: Quality Project Manager:TBHRadiology, Radiologist, - 12/14/2024 [place] [address] XRay Report Signed Patient: LAURA LAWSON MR#: [id number] : 1950 Acct:[id number] Age/Sex: 74 / F ADM Date: 12/14/24 Loc: RAD Attending Dr: Misty Edwards M.D. Ordering Physician: Misty Edwards M.D. Date of Service: 12/14/24 Procedure(s): XR chest 2V Accession Number(s): [id number] cc: ABRAHAM CESAR ; Msity Edwards M.D. The [address] [address] Patient Name: LAURA LAWSON MRN: [id number] date: 1950 Sex: F Assigned Patient Location: RAD Current Patient Location: RAD Accession/Order Number: [id number] Exam Date: 12/14/2024 15:25 Report Date: 12/14/2024 [...] Devlin M.D. 12/14/2024 3:26 PM Dictation Location: [place] [address] Electronically authenticated by: [id number] Y Date: 12/14/2024 15:26 Dictated By: Amaury Devlin D.O. Signed By: 12/14/24 1529 DD/ 1526 TD/TT: Quality Project Manager: [facility]-IN HOSPITALMaicol HealthcareRadiology Study observation (narrative)[facility] HospitalXR CHEST 2V Ordered By: Radiologist Radiology on 45-45-0205WR[facility] [employer] Work Phone: HPon 52-20-9058UFFZ Electrophysiology Consult Note IN Cardiology [facility] Reason for visit: Ischemic cardiomyopathy HPI: [...] Use: Not At Risk (02/23/2024) Re[facility] AUDIT-C Frequency of Alcohol Consumption: Never Average [...] file Physical Activity: Inactive (02/23/2024) Received from [facility] Exercise Vital Sign Days of Exercise per Week: 0 days Minutes of Exercise per Session: 0 min Stress: No Stress Concern Present (02/23/2024) Received from [facility] [place] [employer] - Occupational Stress Questionnaire Feeling of Stress : Not at all Social Connections: Moderately Isolated (02/23/2024) Received from [facility] Social Connection and Isolation Panel [NHANES] Frequency of Communication with Friends and Family: More than three times a week Frequency of Social Gatherings with Friends and Family: Once a week Attends Confucianist Services: Never Active Member of Clubs or Organizations: Yes Attends Club or Organization Meetings: 1 to 4 times per year Marital Status: Never Intimate Partner Violence: Unknown (04/21/2024) Humiliation, Afraid, Rape, and Kick questionnaire Fear of Current or Ex-Partner: No Emotionally Abused: Not on file Physically Abused: Not on file Sexually Abused: Not on file Depression: Not at risk (10/13/2024) Received from [facility] PHQ-2 Patient Health Questionnaire-2 Score: 0 Housing Stability: Low Risk (04/21/2024) Housing Stability Vital Sign Unable to Pay for Housing in the Last Year: No Number of Times Moved in the Last Year: Not on file Homeless in the Last Year: No Utilities: Not At Risk (04/21/2024) [facility] Utilities Threatened with loss of utilities: No Health Literacy: Adequate Health Literacy (02/23/2024) Received from [facility] [employer] B1300 Health Literacy Frequency of need for [...] the morning. 90 tablet (more content not included)...[facility] HospitalNURSNOTEon 70-50-4235EKJPZGKGMG educated pt on d/c instructions. This included: [...] answered any questions or concerns if pt verbalized.[facility] HospitalNURSNOTE CHG wipes and betadine nasal swabs completed.[facility] HospitalOrders Onlyon 01-75-3648Wqbrgm [id number] Laura Lawson A 1950 F Date Provider Department Center 12/13/2024 PAT BARRAZA [facility] VASC LAB IN HeartVAS Family History Problem Relation Age of Onset JABARI disease Mother Heart attack Father Family Status - Relation Status Age at Mother FatherNormalUniversity of [facility] TylerALL CBC WITH AUTO DIFFon 75-66-6931IGATTBOOH ABSOLUTE AUTO0.1NOMS HealthcareBasophils/100 WBC (Bld)0.7 % 0.2 - 2.0 %NOMS HealthcareEosinophils/100 WBC (Bld)2.1 %0.9 - 7.0 %NOMParkland Health CenterErythrocyte distribution width (RBC) [Ratio]19.1 %High11.0 - 15.0 % NOMParkland Health CenterHematocrit (Bld) [Volume fraction]37.1 %36.0 - 48.0 %NOMParkland Health CenterHemoglobin (Bld) [Mass/Vol]11.5 g/dLLow12.0 - 16.0 g/dLHermann Area District Hospital IMMATURE GRANULOCYTES ABS AUTO0.02NOTwo Rivers Psychiatric HospitalImmature granulocytes/100 WBC (Bld)0.3 %0.0 - 0.5 %[facility] HealthcareInterpretation and review of laboratory resultsAbnormalNOTwo Rivers Psychiatric HospitalLYMPHOCYTES ABSOLUTE AUTO1.1LowNMercy Hospital Washington Lymphocytes/100 WBC (Bld)14.6 %Low20.5 - 60.0 %[facility] CenterH (RBC) [Entitic mass]28.5 pg26.7 - 34.0 pgSSM Saint Mary's Health CenterHC (RBC) [Mass/Vol]31 g/dL29.9 - 35.2 g/dLSSM Saint Mary's Health CenterV (RBC) [Entitic vol]91.8 fL81.0 - 99.0 fLHermann Area District HospitalMONOCYTES ABSOLUTE AUTO0.9HighNOGA HealthcareMonocytes/100 WBC (Bld) 11.8 %1.7 - 12.0 %NOM HealthcareNEUTROPHILS ABSOLUTE AUTO5.4NOMS [facility] Neutrophils/100 WBC (Bld)70.5 %43.0 - 75.0 %[facility] HospitalPlatelet mean volume (Bld) [Entitic vol]9.5 fL9.5 - 13.5 fLNOTwo Rivers Psychiatric HospitalTBH EO #0.2NOMS [facility] TUS951NRAJUniversity Health Truman Medical Center RBC4.04LowNOUniversity Health Truman Medical Center WBC7.6NOTwo [facility] CLINISYNCNOGA HealthcareUS arterial pvr rest Evelia 68-83-8826YM arterial pvr rest [facility] [place] [address] [place] [address] Ultrasound Report Signed Patient: Laura Lawson MR#: [id number] : 1950 Acct:[id number] Age/Sex: 74 / F ADM Date: 12/07/24 Loc: Room: Type: [facility] Attending Dr: Molly Gallegos APRN Ordering Provider: [...] Aguilar MD,FACS,FSVS 12/08/2024 9:07 AM Dictation Location: [place] [address] Tech: Shari Kulkarni Transcribed By: LIBBY 12/08/24 09 Dictated By: Tee Aguilar MD 12/08/24 09 Signed By: 12/08/[address] [place] [address] Physician GroupOrders Onlyon 74-75-0921Auxwac [id number] Laura Lawson 1950 F Date Provider Department Center 12/06/2024 CHYNA FELICIANO [facility] IN HeartVAS Family History Problem Relation Age of Onset JABARI disease Mother Heart attack Father Family Status - Relation Status Age at Mother FatherNormalUniversAdams County Hospital36on 18-93-351946Wc just weighed her she has put on 20 lbs since November 12 2024NormalUniversAdams County HospitalAerobic Cultureon 86-21-2636Dhwkswt CultureORGANISM: Pseudomonas aeruginosa (O:PSEAER) Quantity of Growth Moderate Growth [...] RESISTANT TO ALL B-LACTAM DRUGS. PERFORMED BY: [address] [address] PATHOLOGIST SUPERVISOR [employer]UC[employer] SAVITA JEFFERSON M.D.[facility] Physician GroupComment on above: Performed By: #### GLULS #### Point of Care testing ,Aerobic cultureOrdered By: Molly Gallegos on 06-73-8823Kozkopjy identified Aer cx Nom (Unsp spec)Pseudomonas aeruginosaAbSelect Medical Specialty Hospital - [facility] Bacteria identified Aer cx Nom (Unsp spec)Klebsiella pneumoniaeAbSelect Medical Specialty Hospital - Southeast OhioBacteria identified Aer cx Nom (Unsp spec)Mariam albicansAbSelect Medical Specialty Hospital - Southeast OhioAnaerobic cultureOrdered By: Molly Gallegos on 59-91-0347Nsxakvwn identified Anaer cx Nom (Unsp spec)No Anaerobes Isolated 3 DaysPaulding County HospitalGram Stainon 87-58-9270Kkarfytzdeq observation Gram stain Nom (Unsp spec)Gram Stain Result No Bacteria Seen PERFORMED BY: [facility] [address] [place] [address] PATHOLOGIST SUPERVISOR [employer]UC[employer] SAVITA JEFFERSON M.D.[facility] Physician GroupComment on above: Performed By: #### GLULS #### Point of Care testing ,Gram stain microscopyOrdered By: Molly Gallegos on 16-15-7964Zvcytdpmydy observation Gram stain Nom (Unsp spec)Paulding County HospitalITPon 22-56-3319L[place] [address] Cardiac Rehab Report Signed Patient: LAURA LAWSON MR#: [id number] : 1950 Acct:[id number] Age/Sex: 73 / F ADM Date: 11/22/24 Loc: CR Attending Dr: Misty Edwards M.D. Ordering Physician: Jorje Camarillo D.O. Date of Service: 11/22/24 Procedure(s): ITP Accession Number(s): [id number] cc: [facility] Test Date: 2024-11-22 Pat Name: LAURA LAWSON Department: Room: - Gender: Female Tube And Manifold Builder: : 1950 Requested By: Jorje Camarillo Order Number: [id number] Veronica MD: Jorje Camarillo Interpretive Statements Okay to proceed with outlined treatment plan. Electronically Signed On 11-22-2024 18:31:15 EDT by Jorje Camarillo Dictated By: Jorje Camarillo D.O. Signed By: 11/22/24183011/22/24 183 DD/ 1146 TD/TT: Quality Project Manager:TBHRadiology, Radiologist, MD - 11/22/2024 [place] [address] Cardiac Rehab Report Signed Patient: LAURA LAWSON MR#: [id number] : 1950 Acct:[id number] Age/Sex: 73 / F ADM Date: 11/22/24 Loc: CR Attending Dr: Misty Edwards M.D. Ordering Physician: Jorje Camarillo D.O. Date of Service: 11/22/24 Procedure(s): ITP Accession Number(s): [id number] cc: [facility] Test Date: 2024-11-22 Pat Name: LAURA LAWSON Department: Room: - Gender: Female Tube And Manifold Builder: : 1950 Requested By: Jorje Camarillo Order Number: [id number] Veronica MD: Jorje Camarillo Interpretive Statements Okay to proceed with outlined treatment plan. Electronically Signed On 11-22-2024 18:31:15 EDT by Jorje Camarillo Dictated By: Jorje Camarillo D.O. Signed By: 11/22/24 1831 11/22/24 1831 DD/ 1146 TD/TT: Quality Project Manager: REYES HealthcareRadiology Study observation (narrative)REYES HealthcareITPOrdered By: Radiologist Radiology on 97-51-1559VSEB Healthcare Work Phone: ITPon [phone], [place] [address] Cardiac Rehab Report Signed Patient: LAURA LAWSON MR#: [id number] : 1950 Acct:[id number] Age/Sex: 73 / F ADM Date: 11/17/24 Loc: CR Attending Dr: Misty Edwards M.D. Ordering Physician: Jorje Camarillo D.O. Date of Service: 11/17/24 Procedure(s): ITP Accession Number(s): [id number] cc: [facility] Test Date: 2024-11-17 Pat Name: LAURA LAWSON Department: Room: - Gender: Female Tube And Manifold Builder: : 1950 Requested By: Jorje Camarillo Order Number: [id number] Veronica MD: Jorje Camarillo Interpretive Statements Okay to proceed with outlined treatment plan. Electronically Signed On 11-17-2024 17:25:09 EDT by Jorje Camarillo Dictated By: Jorje Camarillo D.O. Signed By: 11/17/24 1725 11/17/24 172 DD/ 1445 TD/TT: Quality Project Manager:SREEKANTHadiologDelbert kramer MD - 11/17/2024 [place] [address] Cardiac Rehab Report Signed Patient: LAURA LAWSON MR#: [id number] : 1950 Acct:[id number] Age/Sex: 73 / F ADM Date: 11/17/24 Loc: CR Attending Dr: Misty Edwards M.D. Ordering Physician: Jorje Camarillo D.O. 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 Electronically Signed On 11-17-2024 17:25:09 EDT by Jorje Camarillo Dictated By: Jorje Camarillo D.O. Signed By: 11/17/24 1725 11/17/24 172 DD/ 1445 TD/TT: Quality Project Manager: REYES HealthcareRadiology Study observation (narrative)NOM HealthcareITPOrdered By: Radiologist Radiology on 60-90-5843BSOY Healthcare Work Phone: Orders Onlyon 43-88-7551Gsmais [id number] Lulu,Laura A 1950 F Date Provider Department Center 11/17/2024 NKECHI MATUTE Family History Problem Relation Age of Onset JABARI disease Mother Heart attack Father Family Status - Relation Status Age at Mother FatherNormalUniProMedica Defiance Regional HospitalOffice Visiton 58-59-7019Qryggo- up [id number] LuluLaura A 1950 F Date Provider Department Center 11/09/2024 MISTY ESPARZA Family History Problem Relation Age of Onset JABARI disease Mother Heart attack Father Family Status - Relation Status Age at Mother Father Level of Service:[address] [place] OFFICE/OUTPATIENT [facility] MDM 60 MINUTESNormal [facility] CenterOrders Onlyon 75-48-2248Qmunfv [id number] Lulu,Laura A 1950 F Date Provider Department Center 11/09/2024 NKECHI MATUTE Family History Problem Relation Age of Onset JABARI disease Mother Heart attack Father Family Status - Relation Status Age at Mother FatherNormalUniProMedica Defiance Regional Hospital36on 24-11-255207Xiaqpcddb echo result from 10/20/2024: MD Vandana Keating MA When she comes to see jerry, please have him consider increasing entresto to 1 tablet bid. Patient is scheduled to see Dr. Edwards on 11/09/2024.[facility] HospitalCA ECHO DOPPLER COMPLETEon 59-07-4777RkvWarren, [place] [address] Cardiology Report Signed Patient: LAURA LAWSON MR#: [id number] : 1950 Acct:[id number] Age/Sex: 73 / F ADM Date: 10/20/24 Loc: CARD Attending Dr: RUDY ZENDEJAS Ordering Physician: RUDY ZENDEJAS Date of Service: 10/20/24 Procedure(s): CA echo doppler complete Accession Number(s): [id number] cc: ABRAHAM CESAR ; RUDY ZENDEJAS Patient Name: LAURA LAWSON MR#: [id number] : 1950 Exam Date: 10/20/2024 Ordering Doctor: [...] RUDY ZENDEJAS Signed By: (more content not included)...TBHRadiology, Radiologist, MD - 10/21/2024 [place] [address] Cardiology Report Signed Patient: LAURA LAWSON MR#: [id number] : 1950 Acct:[id number] Age/Sex: 73 / F ADM Date: 10/20/24 Loc: CARD Attending Dr: RUDY ZENDEJAS Ordering Physician: RUDY ZENDEJAS Date of Service: 10/20/24 Procedure(s): CA echo doppler complete Accession Number(s): [id number] cc: ABRAHAM CESAR ; RUDY ZENDEJAS Patient Name: LAURA LAWSON MR#: [id number] : 1950 Exam Date: 10/20/2024 Ordering Doctor: [...] ZENDEJAS Signed By: 10/21/241907 DD/ 06 TD/TT: Quality Project Manager: REYES HealthcareRadiology Study observation (narrative)[facility] HealthcareCA ECHO DOPPLER COMPLETEOrdered By: Radiologist Radiology on 38-56-2855[employer] Work Phone: XR lumbar spine AP/LAT/FLX/EXTon 01-03-2872QN lumbar spine AP/LAT/FLX/EXTMERCY HEALTH [place] [address] XRay Report Signed Patient: Laura Lawson MR#: [id number] : 1950 Acct:[id number] Age/Sex: 73 / F ADM Date: 10/21/24 Loc: XD Room: Type: [facility] Attending Dr: Abner Roa MD Copies [...] Devlin M.D. 10/21/2024 1:48 PM Dictation Location: [facility]- Transcribed By: LIBBY 10/21/24 1348 Dictated By: Amaury Devlin DO 10/21/24 1344 Signed By: 10/21/24 1348[facility] Physician PnaodXwL3u (Bld) [Mass fraction]on 21-54-1514Eavltrwsbtxpvl and review of laboratory resultsAbBaraga County Memorial HospitalS HealthcareLaboratory - Hematology and Cell countson 98-89-8958WzE8h (Bld) [Mass fraction]8.1 %[facility] HealthcareAerobic Cultureon 99-46-5710Atpzooh Culture ORGANISM: Methicillin Resis Staph Aureus (O:MRSA) Quantity [...] RESISTANT TO ALL B-LACTAM DRUGS. PERFORMED BY: [facility] [address] [place] [address] PATHOLOGIST SUPERVISOR [employer] EDUCATION NIMISHA PALACIO M.D.NormalThe [facility] Physician GroupComment on above: Performed By: #### CRP, LACTIC, ESR, CMP, CUBLD, CBC #### [facility] [address] [place] [address] USAAerobic cultureOrdered By: Molly Gallegos on 09-27-2024 Bacteria identified Aer cx Nom (Unsp spec)Methicillin Resis Staph AureusAbOhioHealth Grove City Methodist HospitalBacteria identified Aer cx Nom (Unsp spec) Enterococcus faecalisAbSelect Medical Specialty Hospital - Southeast OhioAnaerobic culture Ordered By: Molly Gallegos on 96-52-9636Ewuxtgjl identified Anaer cx Nom (Unsp spec)Anaerobic culturePaulding County HospitalBacteria identified Anaer cx Nom (Unsp spec)No Anaerobes Isolated 3 DaysPaulding County Hospital Bacteria identified Aer cx Nom (Unsp spec)Ordered By: Molly Gallegos on 09-27-2024 Aerobic CultureAbSelect Medical Specialty Hospital - Southeast OhioAerobic CultureAbOhioHealth Grove City Methodist HospitalGram stain microscopyOrdered By: Molly Gallegos on 61-43-7193Ulvbhqcvsur observation Gram stain Nom (Unsp spec)Gram stain microscopyPaulding County HospitalMicroscopic observation Gram stain Nom (Unsp spec)Paulding County HospitalALL BASIC METABOLIC PANELon 60-25-4615Sdtdp gap [Moles/Vol]12.8 mmol/LNOMS HealthcareCalcium [Mass/Vol]9.9 mg/dL8.5 - 10.1 mg/dLNOGA HealthcareChloride [Moles/Vol]103 mmol/L98 - 107 mmol/LNOMS HealthcareCO2 [Moles/Vol]26.9 mmol/L21.0 - 32.0 mmol/LNOMS Healthcare Creatinine [Mass/Vol]0.93 mg/dL0.55 - 1.02 mg/dLNOGA HealthcareGFR/1.73 sq M.predicted CKD-EPI (S/P/Bld) [Vol rate/Area]>60>=60 mL/min/1.73m 2NOMS HealthcareGlucose [Mass/Vol]237 mg/pMGxvq44 - 106 mg/dLNOGA Healthcare Interpretation and review of laboratory resultsAbnormalNOMS HealthcarePotassium [Moles/Vol]3.7 mmol/L3.5 - 5.1 mmol/LNOMS HealthcareSodium [Moles/Vol]139 mmol/L 136 - 145 mmol/LNOMS HealthcareTBH EGFR-NON AF ZFIVPVHD59Lmt>=60 mL/min/1.73m 2 NOMS HealthcareUrea nitrogen [Mass/Vol]16 mg/dL7.0 - 18.0 mg/dLNOMS Healthcare Urea nitrogen/Creatinine [Mass ratio]17.2 mg/mgNOMS HealthcareCLINISYNCNOMS HealthcareOffice Visiton 41-52-0200Kpodjw-up [id number] Fara Lawsonine A 1950 Date Provider Department Center 09/03/2024 Rosemary-RUDY ZENDEJAS [facility] Family History Problem Relation Age of Onset JABARI disease Mother Heart attack Father Family Status - Relation Status Age at Mother Father Level of Service:51865 [place] OFFICE/OUTPATIENT ESTABLISHED MOD MDM 30 [facility]ighTelephone Visiton 26-67-4854Zjgoczpan Visit [id number] LuluLaura A 1950 Date Provider Department Center 08/23/2024 C[facility]LL GRIDER IN HeartVAS Family History Problem Relation Age of Onset JABARI disease Mother Heart attack Father Family Status - Relation Status Age at Mother Father Reason for Visit and Comments: PharmD GLP1RA Management [Other]NormalUnWilson HealthOrders Onlyon 83-05-0724Xspytj [id number] Fara Lawsonine A 1950 Date Provider Department Center 08/10/202481089-CYCNZXUKSUZANNE CRAWLEY IN HeartVAS Family History Problem Relation Age of Onset JABARI disease Mother Heart attack Father Family Status - Relation Status Age at Mother FatherNormalUniProMedica Defiance Regional HospitalTelephone Visiton 08-06-2024 Telephone [id number] Fara Lawsonine A 1950 F Date Provider Department Center 08/06/202460151-HVRDQBOQSUZANNE POWELL IN HeartVAS Family History Problem Relation Age of Onset JABARI disease Mother Heart attack Father Family Status - Relation Status Age at Mother FatherNormalUniProMedica Defiance Regional HospitalCoding Queryon 73-98-2687Jhwemu QueryCoding Query From: Andrew ARGUETA, Martina To: Selvin Yeh DO; Cc: Nkechi Weldon; Sent: 07/14/2024 08:31:44 EST ! Subject: Coding Query Due Date/Time: 07/20/2024 08:31:00 EST Caller Name: LAURA LAWSON; Caller Number: H Va Dr. Yeh, I saw your responseto Gretchen's query regarding CHF. I apologize that [...] introduced heart failure medications. Echo shows mild tomoderate LVH. Moderately dilated LV. EF 20 to [...] Hold off on restarting Entresto for today. H&L-29-attr-old female with past medical history of CAD [...] clarify which is the wording most closely reflectingthe condition of the patient? [___]Chronic systolic and [...] Caller Name: LAURA LAWSON; Caller Number: H [facility] - TrumbullCA ECHO DOPPLER COMPLETEon 41-77-8991Mxz[place], [place] [address] Cardiology Report Signed Patient: LAURA LAWSON MR#: [id number] : 1950 Acct:[id number] Age/Sex: 73 / F ADM Date: 07/28/24 Loc: CARD Attending Dr: RUDY ZENDEJAS Ordering Physician: RUDY ZENDEJAS Date of Service: 07/28/24 Procedure(s): CA echo doppler complete Accession Number(s): [id number] cc: ABRAHAM CESAR ; RUDY ZENDEJAS Patient Name: LAURA LAWSON MR#: [id number] : 1950 Exam Date: 07/28/2024 Ordering Doctor: [...] Area (VTI): 2.16 cm2, 2.[address] [place]: Pressure Half-Time: Peak Velocity(Antegrade Flow): 1.39 m/s Peak Gradient(Antegrade Flow): 7.72 mm[Hg] Mean Velocity(Antegrade Flow): 0.88 m/s Mean Gradient(Antegrade Flow): 3.79 mm[Hg] Velocity Time Integral: 30.97 cm Tricuspid Valve Peak Velocity (Regurgitant Flow (more content not included)...TBHRadiology, Radiologist, MD - 07/28/2024 [place] [address] Cardiology Report Signed Patient: LAURA LAWSON MR#: [id number] : 1950 Acct:[id number] Age/Sex: 73 / F ADM Date: 07/28/24 Loc: CARD Attending Dr: RUDY ZENDEJAS Ordering Physician: RUDY ZENDEJAS Date of Service: 07/28/24 Procedure(s): CA echo doppler complete Accession Number(s): [id number] cc: ABRAHAM CESAR ; RUDY ZENDEJAS Patient Name: LAURA LAWSON MR#: [id number] : 1950 Exam Date: 07/28/2024 Ordering Doctor: [...] Area (VTI): 2.16 cm2, 2.[address] [facility]: Pressure Half-Time: Peak Velocity(Antegrade Flow): 1.39 m/s [...] M.D. Signed By: 07/28/241812 DD/ 11 TD/TT: Quality Project Manager: [facility] HospitalRadiology Study observation (narrative)[facility] ECHO DOPPLER COMPLETEOrdered By: Radiologist Radiology on 04-88-7835WTXV Healthcare Work Phone: tbh UA (CLEAN/CATCH) REIMBURSEMENT SPEC/MICRO IF IND.on 07-20-2024 BILIRUBIN URINENegativeNEGATIVENOMS HealthcareBLOOD URINENegativeNEGATIVENOMS HealthcareClarity (U)CLOUDYAbnormalCLEARNOMS HealthcareColor (U)LT. YELLOWYELLOW [facility] HealthcareGLUCOSE URINE UA>=1000AbnormalNEGATIVE mg/dLNOGA Healthcare Interpretation and review of laboratory resultsAbnormalNOMS HealthcareKetones Ql (U)NegativeNEGATIVE mg/dLNOGA HealthcareLeukocyte esterase Test strip Ql (U) MODERATEAbnormalNEGATIVENOMS HealthcareNITRITE URINENegativeNEGATIVENOMS HealthcarepH (U)5.5 [pH]5.0 - 9.0NOMS HealthcarePROTEIN URINENegativeNEG/TRACE mg/dLNOMS HealthcareSPECIFIC GRAVITY URINE1.0151.005 - 1.025NOMS HealthcareURINE MICROSCOPIC INDICATEDYESNOMS HealthcareUROBILINOGEN URINE0.2 EU/dL0.2 - 1.0 EU/dLNOMS HealthcareCLINISYNCNOMS HealthcareOffice Visiton 38-62-2548Lsgvmv-up [id number] Laura Lawson William 1950 F Date Provider Department Center 07/19/2024 [facility]UDY SALAZAR [facility] Family History Problem Relation Age of Onset JABARI disease Mother Heart attack Father Family Status - Relation Status Age at Mother Father Level of Service:37477 [place] OFFICE/OUTPATIENT ESTABLISHED MOD [facility] 30 [facility]ighTelephoneon [id number] Fara Lawsonanant Thomas 1950 F Date Provider Department Center 07/13/2024 [facility] HVCANTICOAG IN HeartVAS Family History Problem Relation Age of Onset JABARI disease Mother Heart attack Father Family Status - Relation Status Age at Mother FatherNormalUniversity [facility]36on 93-26-196015Mn was discontinued by pharmacistNormalUniversAdams County HospitalCoding Query on 24-42-0393Zizzcm QueryCoding Query From: Gretchen Funez RN To: Selvin [...] is desired or expected. Thank you!gretchen [phone] pressure ulcer unstageable right and left heel pressure ulcer unstageable bilateral buttock From: Selvin Yeh DO To: Gretchen Funez RN; Sent: 07/12/2024 11:27:46 EST Subject: RE: Coding Query Caller Name: LAURA LAWSON; Caller Number: H [facility] TrumbullCoding QueryCoding Query From: Gretchen Funez RN To: Selvin [...] is desired or expected. Thank you!gretchen [phone] From: Selvin Yeh DO To: Dee Dee RN, Gretchen Thomas; Sent: 07/12/2024 11:24:34 EST Subject: RE: Coding Query Caller Name: LAURA LAWSON; Caller Number: H question... shouldnt it be chronic HFrEF ifthe patient had prior to arrival? the exacerbation noted. pt had MINormalMorrow County HospitalBMPon 07-09-2024 Anion gap [Moles/Vol]13 mmol/LNormal6-16Morrow County HospitalComment on above:Performed By: #### [id number] #### [facility] [address], [place] [address]Mohwzex [Mass/Vol]10.1 mg/dLNormal8.9-11.1FCleveland Clinic Union HospitalComment on above:Performed By: #### [id number] #### [facility] [address], [place] [address]Pqnzvydy [Moles/Vol]102 mmol/IRiscdb305-775BcoxhiMorrow County HospitalComment on above:Performed By: #### [id number] #### [facility] [address], [place] [address]YS7 [Moles/Vol]25 mmol/LJuwffj83-90RkxserMorrow County Hospital Comment on above:Performed By: #### [id number] #### [facility] [address], [place] [address]Vsdefefbnd [Mass/Vol]0.9 mg/dLNormal0.5-1.3FCleveland Clinic Union HospitalComment on above:Performed By: #### [id number] #### [facility] [address], [place] [address]Ujousmu [Mass/Vol]94 mg/qZJfhngd42-416CosqubMorrow County HospitalComment on above:Performed By: #### [id number] #### [facility] [address], [place] [address]Lbyyrrojn [Moles/Vol]4.4 mmol/LNormal3.5-5.3FCleveland Clinic Union HospitalComment on above:Performed By: #### [id number] #### [facility] [address], [place] [address]Gqkjvo [Moles/Vol]136 mmol/KFcpluu757-737EhtbhvMorrow County HospitalComment on above:Performed By: #### [id number] #### [facility] [address], [place] [address]Jxkf nitrogen [Mass/Vol]24 mg/dLHigh5-21Morrow County HospitalComment on above:Performed By: #### [id number] #### [facility] [address], [place] [address]Imzp nitrogen/Creatinine [Mass ratio]27 No NrldjVvar84-87OxionzMorrow County HospitalComment on above:Performed By: #### [id number] #### [facility] [address], [place] [address]GVL w/ Auto Diffon 82-95-5108Luea form neutrophils/100 WBC (Bld)1.0 %Normal0.0-6.0Morrow County HospitalComment on above:Performed By: #### [id number] #### [facility] [address] [place] [address]Cmxyzuypi (Bld) [#/Vol]0.0 E9/LNormal0.0-0.2FCleveland Clinic Union HospitalComment on above:Performed By: #### [id number] #### [facility] [address] [place] [address]Aadjpublnud (Bld) [#/Vol]0.5 E9/LNormal0.0-0.5FCleveland Clinic Union HospitalComment on above:Performed By: #### [id number] #### [facility] [address] [place] [address]Tvmvfvyfgxd/100 WBC (Bld)4.0 %Normal0.0-8.0Morrow County HospitalComment on above:Performed By: #### [id number] #### [facility] [address] [place] [address]Tfcotdaojxn (Bld) [#/Vol]1.9 E9/LNormal1.0-4.0Morrow County HospitalComment on above:Performed By: #### [id number] #### [facility] [address] [place] [address]Njjehetearf/100 WBC (Bld)16.0 %Eclmkr75.0-50.0Morrow County HospitalComment on above:Performed By: #### [id number] #### [facility] [address] [place] [address]Stamaqhkk (Bld) [#/Vol]2.0 E9/LHigh0.2-1.0Morrow County HospitalComment on above:Performed By: #### [id number] #### [facility] [address] [place] [address]Hvfzkcbdsls (Bld) [#/Vol]7.4 E9/LInvalid Interpretation Code Mor[facility] County HospitalComment on above:Performed By: #### [id number] #### [facility] [address] [place] [address]EIL size Nom (Bld)NORMALInvalid Interpretation CodeMorrow County HospitalComment on above:Performed By: #### [id number] #### [facility] [address], [place] [address]Pxxykxeeg neutrophils/100 WBC (Bld)62.0 %Tlgniy12.0-75.0M[facility] County HospitalComment on above:Performed By: #### [id number] #### [facility] [address] [place] [address]Kmzobvjwaxj distribution width (RBC) [Ratio]21.2 %High10.9-14.2 Mor[facility] County HospitalComment on above:Performed By: #### [id number] #### [facility] [address] [place] [address]Kmsdptuycw (Bld) [Volume fraction]38.7 %Qdvfuf11.0-46.0M[facility] County HospitalComment on above:Performed By: #### [id number] #### [facility] [address] [place] [address]Czdargajqh (Bld) [Mass/Vol]13.2 g/lHIatjda77.0-16.0M[facility] County HospitalComment on above:Performed By: #### [id number] #### [facility] [address] [place] [address]ROR (RBC) [Entitic mass]32.3 iyZvoqfe35.0-34.0M[facility] County HospitalComment on above:Performed By: #### [id number] #### [facility] [address] [place] [address]LFZL (RBC) [Mass/Vol]34.1 g/wGJrtlgf42.4-36.0M[facility] County HospitalComment on above:Performed By: #### [id number] #### [facility] [address] [place] [address] 50830BGR (RBC) [Entitic vol]94.7 hPTnlcrf41.0-100.0Fisher Amite Medical CenterComment on above:Performed By: #### [id number] #### [facility] [address], [place] [address]Nycbktxi034.0 E9/IBxnacu041.0-500.0[facility] Comment on above:Result Comment: Platelet clumping present, platelet count appears normal on slide.Performed By: #### [id number] #### [facility] [address], [place] [address]Wncgqsmz mean volume (Bld) [Entitic vol]9.4 fLNormal6.4-10.8 [facility] HospitalComment on above:Performed By: #### [id number] #### [facility] [address] [place] [address] 08765KQT (Bld) [#/Vol]4.1 E12/LLow4.3-5.9[facility] Comment on above:Performed By: #### [id number] #### [facility] [address] [place] [address] 80989OYR corrected for nucl RBC Auto (Bld) [#/Vol]11.8 E9/LHigh 4.0-11.0[facility] County HospitalComment on above:Performed By: #### [id number] #### [facility] [address] [place] [address] 30170QPLPWPFOTDeamnbv By: Torito Chacon on 93-46-0399Mdperar [Mass/Vol]106 mg/fHLwdl91 - 99 mg/dLST. [facility] POC SubsectionPOC UsernameSKASANDRA DE LA O Invalid Interpretation CodeFT POC SubsectionSodium [Moles/Vol]456128844581 mmol/LInvalid Interpretation CodeFT POC SubsectionSodium [Moles/Vol]150371002 mmol/LInvalid Interpretation CodeFT POC SubsectionGlucose [Mass/Vol]126 mg/dL High55 - 99 mg/dLST. [facility] POC SubsectionComment on above:Result Comment: Cleaned MeterPOC UsernamKASANDRA DumontInvalid Interpretation CodeST. [facility] POC Subsection Sodium [Moles/Vol]877152134834 mmol/LInvalid Interpretation CodeST. [facility] POC SubsectionSodium [Moles/Vol]962849365 mmol/LInvalid Interpretation CodeST. [facility] POC SubsectionCHEMISTRYOrdered By: SYSTEM SYSTEM on 71-54-0217Uyfuk gap [Moles/Vol] 13 mmol/LNormal6 - 16 mEq/LRemisol ChemCalcium [Mass/Vol]10.1 mg/dLNormal8.9 - 11.1 mg/dLRemisol ChemChloride [Moles/Vol]102 mmol/TXpxavv222 - 111 mmol/L Remisol ChemCO2 [Moles/Vol]25 mmol/LRmxucb80 - 31 mmol/LRemisol ChemCreatinine [Mass/Vol]0.9 mg/dLNormal0.5 - 1.3 mg/dLRemisol GqsylIZX71 mL/min/1.73 n4Kockej >=59mL/min/1.73 e2Bbkpakm ChemGlucose [Mass/Vol]94 mg/sMXeuywm59 - 199 mg/dL Remisol ChemPotassium [Moles/Vol]4.4 mmol/LNormal3.5 - 5.3 mmol/LRemisol Chem Sodium [Moles/Vol]136 mmol/ZHvesky990 - 145 mmol/LRemisol ChemUrea nitrogen [Mass/Vol]24 mg/dLHigh5 - 21 mg/dLRemisol ChemUrea nitrogen/Creatinine [Mass ratio]27 mg/snEshv39 - 20Remisol ChemCapillary Glucose POCon 98-23-8111Hyabkae [Mass/Vol]106 mg/aKIbfc48-13PqgufgMorrow County HospitalComment on above: Performed By: #### [id number] #### [facility] [address], [place] [address]Ozdegze [Mass/Vol]126 mg/lRRuel87-35QriuwsMorrow County Hospital Comment on above:Result Comment: Cleaned MeterPerformed By: #### [id number] #### [facility] [address], [place] [address]Whzete Queryon [id number] QueryCoding Query From: Gretchen Funez RN To: Selvin [...] answer is desired or expected. Thank you!gretchen [id number] - TrumbullHEMATOLOGYOrdered By: Leticia Roberts on 29-42-4996Lppp form neutrophils/100 WBC (Bld)1.0 %Normal0.0 - 6.0 %Remisol HemeBasophils (Bld) [#/Vol]0.0 E9/LNormal0.0 - 0.2 E9/LRemisol HemeBasophils/100 WBC (Bld)0.0 % Normal0.0 - 2.0 %Remisol HemeEosinophils (Bld) [#/Vol]0.5 E9/LNormal0.0 - 0.5 E9/LRemisol HemeEosinophils/100 WBC (Bld)4.0 %Normal0.0 - 8.0 %Remisol Heme Lymphocytes (Bld) [#/Vol]1.9 E9/LNormal1.0 - 4.0 E9/LRemisol HemeLymphocytes/100 WBC (Bld)16.0 %Oufpsi07.0 - 50.0 %Remisol HemeMonocytes (Bld) [#/Vol]2.0 E9/L High0.2 - 1.0 E9/LRemisol HemeMonocytes/100 WBC (Bld)17.0 %High4.0 - 14.0 % Remisol HemeNeutrophils (Bld) [#/Vol]7.4 E9/LInvalid Interpretation CodeRemisol HemeRBC size Nom (Bld)NORMAL *NA* (07/09/24 5:48 AM)Invalid Interpretation CodeRemisol HemeSegmented neutrophils/100 WBC (Bld)62.0 %Ccwdbz21.0 - 75.0 %Remisol HemeHEMATOLOGYOrdered By: SYSTEM SYSTEM on 36-28-7001Gbipmqiynqk distribution width (RBC) [Ratio]21.2 %High10.9 - 14.2 %Remisol HemeHematocrit (Bld) [Volume fraction]38.7 %Dwqnzr06.0 - 46.0 %Remisol HemeHemoglobin (Bld) [Mass/Vol]13.2 g/dPPmwqjq55.0 - 16.0 gm/dL Remisol HemeMCH (RBC) [Entitic mass]32.3 mhHfvxmx14.0 - 34.0 pgRemisol HemeMCHC (RBC) [Mass/Vol]34.1 g/yZTfhqqj59.4 - 36.0 gm/dLRemisol HemeMCV (RBC) [Entitic vol]94.7 uNTrtukc94.0 - 100.0 fLRemisol SkapBbthiblj593.0 E9/DGuauym944.0 - 500.0 E9/LRemisol HemeComment on above:Result Comment: Platelet clumping present, platelet count appears normal on slide.Platelet mean volume (Bld) [Entitic vol]9.4 fLNormal6.4 - 10.8 fLRemisol HemeRBC (Bld) [#/Vol]4.1 E12/LLow 4.3 - 5.9 E12/LRemisol HemeWBC corrected for nucl RBC Auto (Bld) [#/Vol]11.8 E9/LHigh4.0 - 11.0 E9/LRemisol HemeInpatient Patient Summaryon 07-09-2024 Inpatient Patient SummaryInpatient Patient Summary LAURA LAWSON :1950 Visit Date:07/07/2024 Inpatient Discharge Instructions Your Care Team Admitting Physician - Luigi Montana MD Consulting Physician - [facility] Cardio, XXXX Luigi Montana MD Reason for [...] 5 mg Tab) potassium chloride (Potassium Chloride (Cli-Kytt-Ixh M20) 20 mEq oral tablet, extended release) [...] BREWER, ABRAHAM Enriquez, MED When: Where: [address] [place] [address]- Follow Up with RUDY ZENDEJAS [...] 6 hours as needed for as needed forpain Printed Prescription Changed spironolactone (spironolactone 25 mg [...] mg/ 0.5 mL subcutaneous solution) 1.5 Milligram SubcutaneousEvery week Unchanged ezetimibe (ezetimibe 10 mg Tab) 1 Tablets By Mouth Every day Unchanged guaifenesin (Mucinex 600 mg Tab-ER) 1 Tablets By Mouth 2 times a day Unchanged insulin glargine (Insulin Glargine Solostar Pen (concentrated) 300 units/ mL subcutaneoussolution) 30 Units Subcutaneous At bedtime Unchanged insulin lispro (Insulin Lispro KwikPen 100 units/ mL injectable solution) See instructions Unchanged meloxicam (meloxicam 15 mg Tab) 1 Tab (more content not included)... [facility] TrumbullInterdisciplinary Note - Case Manageron 04-84-4170Reslvhzckblabgtzr Note - Case ManagerInterdisciplinary Note - Mc Kay Machine Operator Patient is awake and alert in bed, previously rounded with Dr Yeh. Pt is from [facility] and plan to return back today. Pt sttes her sister is aware of plan, as she was here earlier. Medicare rights reviewed. . PCP verified and insurance information reviewed and DME discussed. Contact information provided and white board updateNormSouthview Medical CenterComment on above:Result Comment: Electronically Signed By: Andrei ARGUETA, Dulce\.padmini\Date and Time Signed: 07/09/24 12:11 ESTeGFRon 86-70-3700jGIY98 mL/min/1.73 l3Lzdixy>=59[facility] County HospitalComment on above:Performed By: #### [id number] #### [facility] [address] [place], [place] [address]TBKym 52-90-6441Lszuh gap [Moles/Vol]10 mmol/LNormal6-16[facility] HospitalComment on above:Performed By: #### [id number] #### [facility] [address], [place] [address]Buogjfe [Mass/Vol]9.8 mg/dLNormal8.9-11.1FCleveland Clinic Union HospitalComment on above:Performed By: #### [id number] #### [facility] [address], [place] [address]Mgtzcjjt [Moles/Vol]101 mmol/XPghiad303-868RydbsdMorrow County HospitalComment on above:Performed By: #### [id number] #### [facility] [address], [place] [address]UH1 [Moles/Vol]28 mmol/TOueazf69-58YlrlvwMorrow County Hospital Comment on above:Performed By: #### [id number] #### [facility] [address], [place] [address]Etxouuvfmy [Mass/Vol]1.0 mg/dLNormal0.5-1.3FCleveland Clinic Union HospitalComment on above:Performed By: #### [id number] #### [facility] [address], [place] [address]Lnpfwre [Mass/Vol]162 mg/fEVuhxfz95-725ArzzqfMorrow County HospitalComment on above:Performed By: #### [id number] #### [facility] [address], [place] [address]Kphtoxaoz [Moles/Vol]4.0 mmol/LNormal3.5-5.3FCleveland Clinic Union HospitalComment on above:Performed By: #### [id number] #### [facility] [address], [place] [address]Srigbq [Moles/Vol]135 mmol/OGthhhz972-147VpkoteMorrow County HospitalComment on above:Performed By: #### [id number] #### [facility] [address], [place] [address]Zazt nitrogen [Mass/Vol]26 mg/dLHigh5-21[facility] County HospitalComment on above:Performed By: #### [id number] #### [facility] [address] [place] [address] 18338Axsc nitrogen/Creatinine [Mass ratio]26 No IrjayQjnf30-65QcsarwMorrow County HospitalComment on above:Performed By: #### [id number] #### [facility] [address] [place] [address] 61714VVM w/ Auto Diffon 73-66-4637Burrkmrmh/100 WBC (Bld)1.3 %Normal 0.0-2.0[facility] County HospitalComment on above:Performed By: #### [id number] #### [facility] [address] [place] [address] 78[address]Jlgmujxpb/Leukocytes Auto (Bld) [Pure # fraction]0.1 E9/LNormal 0.0-0.2FCleveland Clinic Union HospitalComment on above:Performed By: #### [id number] #### [facility] [address] [place] [address] 81243Iihlcpmgito (Bld) [#/Vol]0.3 E9/LNormal0.0-0.5FCleveland Clinic Union HospitalComment on above:Performed By: #### [id number] #### [facility] [address] [place] [address] 855[address]Semhxmriolj/100 WBC (Bld)3.4 %Normal0.0-8.0[facility] County HospitalComment on above:Performed By: #### [id number] #### [facility] [address] [place] [address] 13[address]Zjjzmpfszoc distribution width (RBC) [Ratio]21.7 %High10.9-14.2 [facility] HospitalComment on above:Performed By: #### [id number] #### [facility] [address] [place] [address] 16358Wjxjudnac By: #### [id number] #### [facility] [address] [place] [address] 990[address]Itajqrrjyb (Bld) [Volume fraction]35.0 %Lfftal55.0-46.0[facility] County HospitalComment on above:Performed By: #### [id number] #### [facility] [address] [place] [address] 08726Ooimxqbtm By: #### [id number] #### [facility] [address] [place] [address] 91277Xfgmioobwi (Bld) [Mass/Vol]11.8 g/dLLow12.0-16.0[facility] HospitalComment on above:Performed By: #### [id number] #### [facility] [address] [place] [address] 00459Yvvefntvc By: #### [id number] #### [facility] [address] [place] [address] 34639Uatpuoutkbx (Bld) [#/Vol]1.2 E9/LNormal1.0-4.0[facility] County HospitalComment on above:Performed By: #### [id number] #### [facility] [address] [place] [address] 36133Qnbbypamdtq/100 WBC (Bld)14.8 %Xpegcu46.0-50.0[facility] County HospitalComment on above:Performed By: #### [id number] #### [facility] [address] [place] [address] 92646EWK (RBC) [Entitic mass]31.9 rqYqlmwf51.0-34.0[facility] HospitalComment on above:Performed By: #### [id number] #### [facility] [address] [place] [address] 32099Kjcuuwexm By: #### [id number] #### [facility] [address] [place] [address] 73731DBKH (RBC) [Mass/Vol]33.7 g/sTOplzdm74.4-36.0[facility] HospitalComment on above:Performed By: #### [id number] #### [facility] [address] [place] [address] 80768Nokxesrnq By: #### [id number] #### [facility] [address] [place] [address] 72099GZW (RBC) [Entitic vol]94.9 mJAmfzoo69.0-100.0[facility] HospitalComment on above:Performed By: #### [id number] #### [facility] [address] [place] [address] 64308Pcqswdhzd By: #### [id number] #### [facility] [address] [place] [address] 697[address]Spbtnjems (Bld) [#/Vol]1.3 E9/LHigh0.2-1.0[facility] HospitalComment on above:Performed By: #### [id number] #### [facility] [address] [place] [address] 26458Ivgxsuunqba (Bld) [#/Vol]5.5 E9/LNormal2.0-7.5FCleveland Clinic Union HospitalComment on above:Performed By: #### [id number] #### [facility] [address] [place] [address] 39814Xcfzlvrlhls/100 WBC (Bld)65.5 %Ewjljm70.0-75.0[facility] HospitalComment on above:Performed By: #### [id number] #### [facility] [address] [place] [address] 41734Yantgtvt834.0 E9/RWvlcyc139.0-500.0[facility] Comment on above:Performed By: #### [id number] #### [facility] [address] [place] [address] 94397Lknvlqaaj By: #### [id number] #### [facility] [address] [place] [address] 34836Uaoudqiq mean volume (Bld) [Entitic vol]7.7 fLNormal6.4-10.8 [facility] HospitalComment on above:Performed By: #### [id number] #### [facility] [address] [place] [address] 29037Hisosuhhy By: #### [id number] #### [facility] [address], [place] [address]REN (Bld) [#/Vol]3.7 E12/LLow4.3-5.9[facility] Comment on above:Performed By: #### [id number] #### [facility] [address] [place] [address] 80009Szrfsodgi By: #### [id number] #### [facility] [address] [place] [address] 86370QXM corrected for nucl RBC Auto (Bld) [#/Vol]8.3 E9/LNormal 4.0-11.0[facility] County HospitalComment on above:Performed By: #### [id number] #### [facility] [address] [place] [address] 033[address]Fzfgmimub By: #### [id number] #### [facility] [address] [place] [address] 49394MPSBMBWVCYjvobpc By: Torito Chacon on 45-82-1235Oratheq [Mass/Vol]225 mg/xXUvim98 - 99 mg/dLST. M[facility] POC SubsectionComment on above:Result Comment: Notified RN/HAIDER UsernamLiu Resendiz Interpretation CodeST. MARY'S [facility] POC SubsectionSodium [Moles/Vol]523901962624 mmol/LInvalid Interpretation Code [facility] POC SubsectionSodium [Moles/Vol]055678284 mmol/LInvalid Interpretation Code [facility] POC SubsectionCHEMISTRYOrdered By: SYSTEM SYSTEM on 31-54-1870Pszqr gap [Moles/Vol]10 mmol/LNormal6 - 16 mEq/LRemisol ChemCalcium [Mass/Vol]9.8 mg/dL Normal8.9 - 11.1 mg/dLRemisol ChemChloride [Moles/Vol]101 mmol/ZRjatdt529 - 111 mmol/LRemisol ChemCO2 [Moles/Vol]28 mmol/FMevemh61 - 31 mmol/LRemisol Chem Creatinine [Mass/Vol]1.0 mg/dLNormal0.5 - 1.3 mg/dLRemisol ZqcdtBJH90 mL/min/1.73 f5Xyfxeh>=59mL/min/1.73 x4Qmstlcv ChemGlucose [Mass/Vol]162 mg/dL Fwukai24 - 199 mg/dLRemisol ChemMagnesium [Mass/Vol]2.2 mg/dLNormal1.3 - 2.4 mg/dLRemisol ChemPotassium [Moles/Vol]4.0 mmol/LNormal3.5 - 5.3 mmol/LRemisol ChemSodium [Moles/Vol]135 mmol/QTxfyqf100 - 145 mmol/[place] [address].90 pg/mLInvalid Interpretation Code10.10 - 27.10 pg/mLRemisol ChemComment on above:Result Comment: Critical Result Verified by Repeat Analysis Critical Result I_TnIHS:[id number] Called to and read back by: ROGELIO NORRIS at: 07/08/2024 07:01:01 by:BCInterpretive Data: The 95% CI (Confidence Interval) PPV (Positive Predictive Value) for myocardial infarction in females is 38 pg/mL, in males 51 pg/mL. The results should be used in conjunction withclinical conditions of myocardial infarction. (Access High Sensitivity Troponin I Instructions For Use, Ramandeep Fabiola, January 2018)Urea nitrogen [Mass/Vol]26 mg/dLHigh5 - 21 mg/dLRemisol ChemUrea nitrogen/Creatinine [Mass ratio]26 mg/qkZyvw44 - 20Remisol ChemCapillary Glucose POCon 41-97-2617Zqxlqox [Mass/Vol]225 mg/lRDtap86-22AvphgiMorrow County Hospital Comment on above:Result Comment: Notified RN/MDPerformed By: #### [id number] #### [facility] [address], [place] [address]Irvzmwq [Mass/Vol]97 mg/mLDebueq33-74YabumcMorrow County HospitalComment on above:Result Comment: Notified RN/MDPerformed By: #### [id number] #### [facility] [address], [place] [address]Boqzndn [Mass/Vol]172 mg/bKXqfy37-50KqahflMorrow County Hospital Comment on above:Result Comment: Notified RN/MDPerformed By: #### [id number] #### [facility] [address] [place], [place] [address]Keaopxx [Mass/Vol]125 mg/uZGhof75-40[address] Comment on above:Result Comment: Notified RN/MDPerformed By: #### [id number] #### [facility] [address] [place] [address]Gtiras Queryon [id number] QueryCoding Query From: Close Gretchen ARGUETA To: Selvin Yeh DO; Sent: 07/08/2024 09:59:17 [...] answer is desired or expected. Thank you!gretchen 6396NormalMorrow County HospitalHEMATOLOGYOrdered By: SYSTEM SYSTEM on 50-41-8812Pffoclvzd/100 WBC (Bld) 1.3 %Normal0.0 - 2.0 %Remisol HemeBasophils/Leukocytes Auto (Bld) [Pure # fraction]0.1 E9/LNormal0.0 - 0.2 E9/LRemisol HemeEosinophils (Bld) [#/Vol]0.3 E9/LNormal0.0 - 0.5 E9/LRemisol HemeEosinophils/100 WBC (Bld)3.4 %Normal0.0 - 8.0 %Remisol HemeLymphocytes (Bld) [#/Vol]1.2 E9/LNormal1.0 - 4.0 E9/LRemisol HemeLymphocytes/100 WBC (Bld)14.8 %Ldynim87.0 - 50.0 %Remisol HemeMonocytes (Bld) [#/Vol]1.3 E9/LHigh0.2 - 1.0 E9/LRemisol HemeMonocytes/100 WBC (Bld)15.0 % High4.0 - 14.0 %Remisol HemeNeutrophils (Bld) [#/Vol]5.5 E9/LNormal2.0 - 7.5 E9/LRemisol HemeNeutrophils/100 WBC (Bld)65.5 %Nptoae16.0 - 75.0 %Remisol Heme Interdisciplinary Note - Case Manageron 20-84-7666Iavjnhuifrqhlpkyg Note - Case ManagerInterdisciplinary Note - Mc Kay Machine Operator Patient is awake and alert in bed, previously rounded with Dr. Yeh. Patient is from [facility] and plan to returrn at [place]. Pt is aware of plan to move out of ICU today and likely plan to DC back to facility tomorrow. Inpatient status reviewed, Medicare rights reviewed, form signed and original provided . CRM following. PCP verified and insurance information reviewed and DME discussed. Contact information provided and white board updated.[facility] - TrumbullComment on above:Result Comment: Electronically Signed By: Andrei ARGUETA, Dulce\.padmini\Date and Time Signed: 07/08/24 12:00 ESTLaboratory - Hematology and Cell countsOrdered By: SYSTEM SYSTEM on 21-56-6361Dzunfsawndy distribution width (RBC) [Ratio]21.7 %High10.9 - 14.2 %Remisol HemeHematocrit (Bld) [Volume fraction]35.0 %Afwbee89.0 - 46.0 %Remisol HemeHemoglobin (Bld) [Mass/Vol]11.8 g/dLLow12.0 - 16.0 gm/dLRemisol HemeMCH (RBC) [Entitic mass]31.9 lwGkuwph55.0 - 34.0 pgRemisol HemeMCHC (RBC) [Mass/Vol]33.7 g/zDYxecdu57.4 - 36.0 gm/dLRemisol HemeMCV (RBC) [Entitic vol]94.9 yNPixril39.0 - 100.0 fLRemisol HemePlatelet mean volume (Bld) [Entitic vol]7.7 fLNormal6.4 - 10.8 fLRemisol HemeRBC (Bld) [#/Vol]3.7 E12/LLow4.3 - 5.9 E12/LRemisol HemeWBC corrected for nucl RBC Auto (Bld) [#/Vol]8.3 E9/LNormal4.0 - 11.0 E9/LRemisol HemeMagnesiumon 81-43-3357Firsorqnt [Mass/Vol]2.2 mg/dLNormal1.3-2.4[facility] Comment on above:Performed By: #### [id number] #### [facility] [address] [place] [address]Cy Panel InformationOrdered By: SYSTEM SYSTEM on 07-08-2024 Vvoffdsw195.0 E9/YLhvpgy635.0 - 500.0 E9/LRemisol HemeTroponinon 07-08-2024 Troponin CO39508.90 pg/tIKlvsoktu12.10-27.10[facility] CampusComment on above:Result Comment: Critical Result Verified by Repeat Analysis Critical Result I_TnIHS:[id number] Called to and read back by: ROGELIO NORRIS at: 07/08/2024 07:01:01 by:CELSO The 95% CI (Confidence Interval) PPV (Positive Predictive Value) for myocardial infarction in females is 38 pg/mL, in males 51 pg/mL. The results should be used in conjunction with clinical conditions of myocardial infarction. (Access High Sensitivity Troponin I Instructions For Use, Ramandeep Fabiola, January 2018)Performed By: #### [id number] #### [facility] [address], [place] [address]TG Chest Single Viewon [id number] Chest Single ViewExam Date/Time: 07/07/2024 18:15 EST Reason for Exam: [...] Abraham Foster MD Transcribed by: MICHELLE Technologist: CRONSelect Medical Specialty Hospital - ColumbuseGFRon 88-51-7246xHGD57 mL/min/1.73 i4Lhadot>=59[facility] HospitalComment on above:Performed By: #### [id number] #### [facility] [address], [place] [address]XIFag 26-82-8749Snqok gap [Moles/Vol]14 mmol/LNormal6-16[facility] HospitalComment on above:Performed By: #### [id number] #### [facility] [address], [place] [address]Nukgvbh [Mass/Vol]10.1 mg/dLNormal8.9-11.1FCleveland Clinic Union HospitalComment on above:Performed By: #### [id number] #### [facility] [address], [place] [address]Nfhjyshe [Moles/Vol]99 mmol/TKou198-693QccagtMorrow County HospitalComment on above:Performed By: #### [id number] #### [facility] [address], [place] [address]OL0 [Moles/Vol]25 mmol/ZOfetyf10-68BfztrcMorrow County Hospital Comment on above:Performed By: #### [id number] #### [facility] [address], [place] [address]Vqmpkrzdak [Mass/Vol]1.0 mg/dLNormal0.5-1.3FCleveland Clinic Union HospitalComment on above:Performed By: #### [id number] #### [facility] [address], [place] [address]Bnkmgts [Mass/Vol]197 mg/bGBebnsg39-325NbbyalMorrow County HospitalComment on above:Performed By: #### [id number] #### [facility] [address], [place] [address]Ryvrwurph [Moles/Vol]4.2 mmol/LNormal3.5-5.3FCleveland Clinic Union HospitalComment on above:Performed By: #### [id number] #### [facility] [address], [place] [address]Hetbwl [Moles/Vol]134 mmol/BEiq790-198PfgoksMorrow County HospitalComment on above:Performed By: #### [id number] #### [facility] [address], [place] [address]Rtze nitrogen [Mass/Vol]28 mg/dLHigh5-21[facility] HospitalComment on above:Performed By: #### [id number] #### [facility] [address], [place] [address]Kmip nitrogen/Creatinine [Mass ratio]28 No YhkthDqnv42-25IkiwypMorrow County HospitalComment on above:Performed By: #### [id number] #### [facility] [address], [place] [address]BQDpa 48-20-6872Mysnfvyehai peptide B (Bld) [Mass/Vol]1610 pg/mLHigh5-80[facility] County HospitalComment on above:Performed By: #### [id number] #### [facility] [address] [place] [address] 616[address]ISC w/ Auto Diffon 93-65-4372Ewjudbncp/100 WBC (Bld)1.2 %Normal 0.0-2.0[facility] HospitalComment on above:Performed By: #### [id number] #### [facility] [address] [place] [address] 367[address]Xglewsusk/Leukocytes Auto (Bld) [Pure # fraction]0.1 E9/LNormal 0.0-0.2FCleveland Clinic Union HospitalComment on above:Performed By: #### [id number] #### [facility] [address] [place] [address]Fdpnbrlcfza (Bld) [#/Vol]0.4 E9/LNormal0.0-0.5FCleveland Clinic Union HospitalComment on above:Performed By: #### [id number] #### [facility] [address] [place] [address] 645[address]Onjeeyiqkjf/100 WBC (Bld)4.7 %Normal0.0-8.0[facility] HospitalComment on above:Performed By: #### [id number] #### [facility] [address] [place] [address] 17[address]Obentnuahib distribution width (RBC) [Ratio]21.7 %High10.9-14.2 [facility] HospitalComment on above:Performed By: #### [id number] #### [facility] [address] [place] [address] 575[address]Yaqwzmnmex (Bld) [Volume fraction]37.5 %Waolbq34.0-46.0[facility] HospitalComment on above:Performed By: #### [id number] #### [facility] [address] [place] [address]42[address]Fgwuuyahrr (Bld) [Mass/Vol]12.4 g/dKEjxzrc54.0-16.0[facility] HospitalComment on above:Performed By: #### [id number] #### [facility] [address] [place] [address] 99[address]Bkmlewohfnc (Bld) [#/Vol]1.4 E9/LNormal1.0-4.0[facility] County HospitalComment on above:Performed By: #### [id number] #### [facility] [address] [place] [address] 75033Okjooymcfhx/100 WBC (Bld)16.5 %Ajhdoh82.0-50.0M[facility] County HospitalComment on above:Performed By: #### [id number] #### [facility] [address] [place] [address] 43303PYF (RBC) [Entitic mass]31.3 ifYdsebi55.0-34.0[facility] County HospitalComment on above:Performed By: #### [id number] #### [facility] [address] [place] [address] 43948XELN (RBC) [Mass/Vol]33.0 g/vUIzxqsd61.4-36.0[facility] HospitalComment on above:Performed By: #### [id number] #### [facility] [address] [place] [address] 22584KAH (RBC) [Entitic vol]95.0 uPKhyeag01.0-100.0[facility] County HospitalComment on above:Performed By: #### [id number] #### [facility] [address] [place] [address] 54234Rcdezjlcj (Bld) [#/Vol]1.3 E9/LHigh0.2-1.0[facility] County HospitalComment on above:Performed By: #### [id number] #### [facility] [address] [place] [address] 60174Pqluixgfssc (Bld) [#/Vol]5.5 E9/LNormal2.0-7.5FCleveland Clinic Union HospitalComment on above:Performed By: #### [id number] #### [facility] [address], [place] [address]Wiodvchtpwp/100 WBC (Bld)62.6 %Dqyzyr78.0-75.0[facility] County HospitalComment on above:Performed By: #### [id number] #### [facility] [address] [place] [address] 19970Asvvrvpt mean volume (Bld) [Entitic vol]7.8 fLNormal6.4-10.8 [facility] HospitalComment on above:Performed By: #### [id number] #### [facility] [address] [place] [address] 82085Nogcdtnaj (Bld) [#/Vol]233.0 E9/IVipgfu788.0-500.0[facility] County HospitalComment on above:Performed By: #### [id number] #### [facility] [address] [place] [address] 58111ANO (Bld) [#/Vol]4.0 E12/LLow4.3-5.9[facility] Comment on above:Performed By: #### [id number] #### [facility] [address] [place] [address] 32996YZU corrected for nucl RBC Auto (Bld) [#/Vol]8.7 E9/LNormal 4.0-11.0[facility] County HospitalComment on above:Performed By: #### [id number] #### [facility] [address] [place] [address] 10345BRLXBITGHZjeooxv By: SYSTEM SYSTEM on 61-24-7791Jkuzrbmv HS 9143.50 pg/mLInvalid Interpretation Code10.10 - 27.10 pg/mLRemisol ChemComment on above:Result Comment: Critical Result I_TnIHS:9143.5 Called to and read back by: MARSHALL WOODSON at: 07/07/2024 21:12:15 by:[id number] Critical Result Verified by Previous ResultInterpretive Data: The 95% CI (Confidence Interval) PPV (Positive Predictive Value) for myocardial infarction in females is 38 pg/mL, in males 51 pg/mL. The results should be used in conjunction withclinical conditions of myocardial infarction. (Access High Sensitivity Troponin I Instructions For Use, Qlusters, January 2018)Troponin MW3367.50 pg/mLInvalid Interpretation Code10.10 - 27.10 pg/mLRemisol ChemComment on above:Result Comment: Critical Result Verified by Previous Result Critical Result I_TnIHS:8093.5 Called to and read back by: STEVE DUARTE at: 07/07/2024 19:32:50 by:[id number] Data: The 95% CI (Confidence Interval) PPV (Positive Predictive Value) for myocardial infarction in females is 38 pg/mL, in males 51 pg/mL. The results should be used in conjunction withclinical conditions of myocardial infarction. (P2Binvestor High Sensitivity Troponin I Instructions For Use, Qlusters, January 2018)Anion gap [Moles/Vol]14 mmol/LNormal6 - 16 mEq/LRemisol ChemCalcium [Mass/Vol]10.1 mg/dLNormal8.9 - 11.1 mg/dLRemisol ChemChloride [Moles/Vol]99 mmol/CVuq533 - 111 mmol/LRemisol ChemCO2 [Moles/Vol]25 mmol/JQeqpmz72 - 31 mmol/LRemisol ChemCreatinine [Mass/Vol]1.0 mg/dLNormal0.5 - 1.3 mg/dLRemisol BrkejSOP34 mL/min/1.73 d9Dbpgob>=59mL/min/1.73 e9Zpwntdw ChemGlucose [Mass/Vol] 197 mg/dMAgybvg19 - 199 mg/dLRemisol ChemMagnesium [Mass/Vol]2.1 mg/dLNormal1.3 - 2.4 mg/dLRemisol ChemPotassium [Moles/Vol]4.2 mmol/LNormal3.5 - 5.3 mmol/L Remisol ChemSodium [Moles/Vol]134 mmol/COxf501 - 145 mmol/LRemisol ChemUrea nitrogen [Mass/Vol]28 mg/dLHigh5 - 21 mg/dLRemisol ChemUrea nitrogen/Creatinine [Mass ratio]28 mg/ycJcwj36 - 20Remisol ChemCHEMISTRYOrdered By: Herminia Ramirez on 96-40-9151Lgkbubuwlzz peptide B (Bld) [Mass/Vol]1610 pg/mLHigh5 - 80 pg/mL [facility] HemeManSSCOAGULATIONOrdered By: Herminia Ramirez on 88-98-4723iKMI Coag (PPP) [Time]34.9 oGdsaoq08.1 - 36.5 second(s)[facility] Auto CoagComment on above: Interpretive Data: Parameter 15 days - 4 weeks 1 [...] the same coagulation reagent and instrumentation as [facility]. Currently there are no coagulation studies available worldwide for children to 14 days, andno normal ranges. Heparin therapeutic range (represented by Anti-Factor Xa activity of 0.2 - 0.4 U/mL) corresponds to PTT of 56.6 - 109.0 sec.INR Coag (PPP) [Relative time]1.48 {INR}Invalid Interpretation CodeST. MARY'S REGIONAL [facility] Auto CoagComment on above:Interpretive Data: INR results are specifically intended to assess patients stabilized on long-term Anticoagulation therapy suggested INR s Less Intensive Anticoagulation 2.0 3.0 Conventional Range 3.0 4.5PT Coag (PPP) [Time]16.6 sHigh9.4 - 12.5 second(s)[facility] Auto CoagComment on above:Interpretive Data: 15 days - 4 weeks 1 - [...] the same coagulation reagent and instrumentation as [facility]. Currently there are no coagulation studies available worldwide for children to 14 days, andno normal ranges.Capillary Glucose POCon 43-83-7793Mszyiea [Mass/Vol]146 mg/dLBoone Memorial Hospital 55-99M[facility] County HospitalComment on above:Result Comment: Notified RN/MD Performed By: #### [id number] #### [facility] [address] [place], [place] [address]Uihwvmv [Mass/Vol]148 mg/eHVfzx02-25Ommkdk[address] Comment on above:Result Comment: Notified RN/MDPerformed By: #### [id number] #### [facility] [address] [place] [address] 03929PS Clinical Summaryon 53-83-9101RZ Clinical SummaryED Clinical Summary [address] [address] ED Clinical Summary Person Information Name: LAURA LAWSON [facility] Age: 73 Years : 1950 Sex: Female Language: German PCP: CARLOS JOSHI MD Marital Status: Single Phone: [phone] Visit Id: Visit Reason: Chest pain; CHEST [...] Patient Care Request 07/07/2024 15:49:38 ADDRESS: [address] [facility] [id number] PHYS DOC NOTES: MEDICAL INFORMATION: Prescriptions Given: PATIENT EDUCATION INFORMATION: Instructions: Follow up: DIAGNOSIS: 1:STEMI (ST elevation myocardial infarction)SybilLotus Yahir Medical CenterED Note-Nursingon 19-08-3518NO Note-NursingED Note-Nursing Stemi alert called on pt at 1517. pt made aware of the changes to her ecg by both dr moreno and chace. Both doctors told the pt that she was having a heart attack and that she was in need of emergent intervention via dental laboratory worker due to the imminent danger to her life. pt made aware that she could without immediate intervention. pt states I know, I just don't care. I want to see my heart doctor in [place]. staff reinforced and reiterated to the patient that there was an increased chance ofdeath with waiting. pt stated I understand, I want to go to [place] to see my heart doctor . transport to [place] to be arranged. Pt's friend allowed back to the room. pt and her friend began to talk. this rn in room to start administering medications. pt informed that she has been accepted by her talcer in [place] and that transport by helicopter would be [...] we want you to go to the dental laboratory worker here is because every minute that you wait to be treated is more damage being done to your heart. the more damage done to your heart, the more the risk of is. Do you want your cath here or in [place] . pt states I'll do it here, you can cancel the helicopter . dental laboratory worker notified and pt taken to dental laboratory worker.[facility] CenterED Note-Physicianon 74-45-3163KA Note-PhysicianED Note-Physician Basic Information Time Seen: Tiffanie Moreno, Markos Cruz 07/07/2024 14:57 Chief Complaint chest [...] and Complexity of Problems Differential Diagnosis: [] [facility] Data External documents reviewed: [] My EKG [...] cardiology who does not see any inferior NH other than left bundle branch block. The [...] emergency room to take patient to the Assistant Brand Manager at the patient refused to go to the Cath Labhere. She states she wants to go to [facility] where her talcer is. The patient is alert and oriented. She is capable of making decision. We explained to the patient that this is a heart attack and she can from it. The patient understood and verbalized that yes she can and she still wanted to go to [place]. At this time Dr. Montana recommend starting [...] room and took the patient to the Assistant Brand Manager. Upon arrival her blood pressure was soft on the 90s. It dropped to 80s. Patient was given 500 mL of normal saline. The patient is taken to the Assistant Brand Manager. The hospitalist was notified. Shared decision [...] STEMI (ST elevation myocardial (more content not included)...[facility] TrumbullComment on above:Result Comment: Electronically Signed By: Tiffanie Moreno, Markos Cruz\.br\Date and Time Signed: 07/07/2516:19 ESTED Patient Education Noteon 22-37-6897N[place] Patient Education NoteED Patient Education Note [facility] Patient Summaryon 73-38-3442ZZ Patient SummaryED Patient Summary [place] [address] Patient Discharge Instructions Person Information Name: LAURA LASWON Age: 73 Years Arrival Date: 07/07/2024 14:52:26 Discharge Diagnosis: 1:STEMI (ST elevation myocardial infarction) Primary Care Physician: CARLOS JOSHI MD Provider Information Primary Provider: Markos Moreno M.D. Advanced Mortuary Technician:None The exam and treatment you received in the Emergency Department were for an urgent problem and are not intended as complete care. It is important that you follow up with a doctor, nurse practitioner,or physician???s legal administrative assistant for ongoing care. If your symptoms become worse or you do not improve asexpected and you are unable to reach your usual health care provider, you should return to the Emergency Department. We are available 24 hours a day. LULU LAURA William has been given the following list of [...] opioids can be used to help relieve fcmoslhy-hs-ovmdll pain and are often prescribed following a [...] be struggling with addiction, tell your health respiratory care technician and askfor guidance or call [facility]???S National Helpline at 2-626-024-DMPE. v Source: [place] Department of Health and Human Services/[place] (more content not included)...[facility] - TrumbullHEMATOLOGYOrdered By: SYSTEM SYSTEM on 08-32-4536Mdyqozuhq/100 WBC (Bld)1.2 %Normal0.0 - 2.0 %Remisol Heme Basophils/Leukocytes Auto (Bld) [Pure # fraction]0.1 E9/LNormal0.0 - 0.2 E9/L Remisol HemeEosinophils (Bld) [#/Vol]0.4 E9/LNormal0.0 - 0.5 E9/LRemisol Heme Eosinophils/100 WBC (Bld)4.7 %Normal0.0 - 8.0 %Remisol HemeLymphocytes (Bld) [#/Vol]1.4 E9/LNormal1.0 - 4.0 E9/LRemisol HemeLymphocytes/100 WBC (Bld)16.5 % Lpoaru08.0 - 50.0 %Remisol HemeMonocytes (Bld) [#/Vol]1.3 E9/LHigh0.2 - 1.0 E9/L Remisol HemeMonocytes/100 WBC (Bld)15.0 %High4.0 - 14.0 %Remisol HemeNeutrophils (Bld) [#/Vol]5.5 E9/LNormal2.0 - 7.5 E9/LRemisol HemeNeutrophils/100 WBC (Bld) 62.6 %Qrqlrm67.0 - 75.0 %Remisol HemeInpatient Clinical Summaryon 07-07-2024 Inpatient Clinical SummaryInpatient Clinical Summary [address] [address] Clinical Summary Person Information: Name: LAURA LAWSON Age: 73 Years : 1950 Sex: Female PCP: CARLOS JOSHI MD Marital Status: Single Phone: [phone] Race: White Ethnicity: Non- or Language: German Visit Id: Visit Reason: Chest pain; CHEST PAIN Speciality: Acuity: Enc Type: Inpatient Med Service: Medical Arrival: 07/07/2024 14:52:26 Discharge: Dispo Type: Address: [address] [place] [id number] Provider Notes: Diagnosis: 1:STEMI (ST elevation myocardial [...] Information: CV - Cardiovascular PCI Discharge Instructions (Custom)[facility]ullInpatient Patient Summaryon 61-96-4051Jfkebhdyq Patient Summary Inpatient Patient Summary [place] [address] Patient Discharge Instructions PERSON INFORMATION Name: LAURA LAWSON Date of : 1950 Current Date: 07/07/2024 17:04:48 PHYSICIANS Admitting Physician: Luigi Montana MD Primary Care Physician: CARLOS JOSHI MD PCP Comment: Discharge Diagnosis: 1:STEMI (ST elevation myocardial infarction) Condition at Discharge: FARA LAWSONINE William has been given the following list of [...] to find a nearby participating provider. Comment: ILULU GERALDINE A, have received the attached patient education materials/instructions and haveverbalized understanding: Patient Signature Date Clinican/Nurse Signature Date HERE ARE THE MEDICATION CHANGES THAT OCCURRED DURING YOUR HOSPITAL STAY Comment: MEDICATION LIST PROVIDED FOR YOU IS A LIST OF YOUR CURRENT MEDICATIONS. PLEASE CARRY THIS WITH YOU AT ALL TIMES. No Medications Documented Pharmacy Information: Comment: PATIENT EDUCATION INFORMATION Instructions: [place], [place] Cardiovascular PCI DISCHARGE INSTRUCTIONS Diet: ??? [...] for any reason without talking to your talcer Site Care: ??? Do not remove dressing [...] you are interested in smoking cessation, contact [facility] at [phone], ext. [phone]. ??? In the event you are unable to reach your physician, please call Yariel Sinclair at [phone] and the roll form operator will assist you. Seek Medicare Care [...] Leaflets: You may receive a survey from [employer] asking you to rate your care experience. Your feedback is important and will help us understand what we do well and how we can improve the quality of care we provide to you, your loved ones and our community. It???s an honor to serve you. (more content not included)...NormalFisher [facility] Magnesiumon 01-89-0009Elfmgmvkf [Mass/Vol]2.1 mg/dLNormal1.3-2.4Fisher [facility] CampusComment on above:Performed By: #### [id number] #### [facility] [address], [place] [address]Xtoolrsmw Reporton 50-45-8711Xokgrghja ReportOperative Report Indication for Surgery Acute anterolateral myocardial [...] the chart. Patient was brought to the dental laboratory worker and prepped and draped in usual sterile fashion. Using a modified Seldinger technique a 6 x 23 sheath was placed in the right femoral artery. A JL 4 catheter was used to selectively engage the left coronary artery. An area of severe stenosisin mid LAD with LUIS II flow across [...] 3 x 12 NC balloons inflated up to20 kan. A 3 x 18 mm Xience [...] hemostasis once ACT was less than 180 seconds.[facility] TrumbullComment on above:Result Comment: Electronically Signed By: Nan BREWER, Luigi\.br\Date and Time Signed: 07/07/24 17:12 ESTPT & PTTon 07-07-2024 aPTT Coag (PPP) [Time]34.9 second(s)Ldsbee65.1-36.5[facility] Comment on above:Result Comment: Parameter 15 days - 4 weeks [...] the same coagulation reagent and instrumentation as [facility]. Currently there are no coagulation studies available worldwide for children to 14 days, andno normal ranges. Heparin therapeutic range (represented by Anti-Factor Xa activity of 0.2 - 0.4 U/mL) corresponds to PTT of 56.6 - 109.0 sec.Performed By: #### [id number] #### [facility] [address], [place] [address]CHN Coag (PPP) [Relative time]1.48 {INR}Invalid Interpretation [facility] HospitalComment on above:Result Comment: INR results are specifically intended to assess patients stabilized on long-term Anticoagulation therapy suggested INR???s ???Less Intensive Anticoagulation??? 2.0 ??? 3.0 Conventional Range 3.0 ??? 4.5Performed By: #### [id number] #### [facility] [address], [place] [address]SX Coag (PPP) [Time]16.6 second(s)High9.4-12.5FCleveland Clinic Union HospitalComment on above:Result Comment: 15 days - 4 weeks 1 [...] the same coagulation reagent and instrumentation as [facility]. Currently there are no coagulation studies available worldwide for children to 14 days, andno normal ranges.Performed By: #### [id number] #### [facility] [address] [place], [place] [address]Jyy-Ntnporl Noteon 42-90-0948Sez-Arrival NotePre-Arrival Note Pre-Arrival Summary Name: , Current Date: 07/07/2024 14:52:49 EST Gender: Female Date of : Age: 73 Pre-Arrival Type: EMS ETA: 07/07/2024 15:18:00 EST Primary Care Physician: Presenting Problem: hypotensive chest pain Pre-Arrival User: Corinne Ross RN Referring Source: Location: [place] Completion Date/Time: 07/07/2024 14:48:00 [facility] Emergency Department Pre-Hospital Report Form Vital Signs: Pre-Hospital Report: Treatment in Route: Response to Treatment: Misc. Issues:NormalSyed [facility] CampusTroponin 0 Hr.on 07-07-2024 Troponin QP4835.80 pg/hOYjtvxwiz98.10-27.10[facility] HospitalComment on above:Result Comment: Critical Result Verified by Repeat Analysis Critical Result I_TnIHS:2724.8 Called to and read back by: ANNI WEINER at: 07/07/2024 16:26:13 by:[id number] The 95% CI (Confidence Interval) PPV (Positive Predictive Value) for myocardial infarction in females is 38 pg/mL, in males 51 pg/mL. The results should be used in conjunction with clinical conditions of myocardial infarction. (Access High Sensitivity Troponin I Instructions For Use, Qlusters, January 2018)Performed By: #### [id number] #### [facility] [address], [place] [address]Qxlmcjuj 3 Hr.on 31-12-3187Xlypquev HS2475.50 pg/mLAbnormal 10.10-27.10[facility] HospitalComment on above:Result Comment: Critical Result Verified by Previous Result Critical Result I_TnIHS:8093.5 Called to and read back by: STEVE DUARTE at: 07/07/2024 19:32:50 by:[id number] The 95% CI (Confidence Interval) PPV (Positive Predictive Value) for myocardial infarction in females is 38 pg/mL, in males 51 pg/mL. The results should be used in conjunction with clinical conditions of myocardial infarction. (Access High Sensitivity Troponin I Instructions For Use, Qlusters, January 2018)Performed By: #### [id number] #### [facility] [address], [place] [address]Jepndghk 6 Hr.on 72-16-9585Bbjuyaza SO7970.50 pg/mLAbnormal 10.10-27.10[facility] HospitalComment on above:Result Comment: Critical Result I_TnIHS:9143.5 Called to and read back by: MARSHALL WOODSON at: 07/07/2024 21:12:15 by:[id number] Critical Result Verified by Previous Result The 95% CI (Confidence Interval) PPV (Positive Predictive Value) for myocardial infarction in females is 38 pg/mL, in males 51 pg/mL. The results should be used in conjunction with clinical conditions of myocardial infarction. (Access High Sensitivity Troponin I Instructions For Use, Ramandeep Fabiola, January 2018)Performed By: #### [id number] #### [facility] [address], [place] [address]oORLtb 19-16-8484yDEB24 mL/min/1.73 h5Kuucyr>=59Fisher [facility] CampusComment on above:Performed By: #### [id number] #### [facility] [address], [place] [address]GP ECHO DOPPLER COMPLETEon 44-96-6219[address] [address] Cardiology Report Signed Patient: LAURA LAWSON MR#: [id number] : 1950 Acct:[id number] Age/Sex: 73 / F ADM Date: 06/28/24 Loc: CARD Attending Dr: RUDY ZENDEJAS Ordering Physician: RUDY ZENDEJAS Date of Service: 06/28/24 Procedure(s): CA echo doppler complete Accession Number(s): [id number] cc: ABRAHAM CESAR ; RUDY ZENDEJAS Patient Name: LAURA LAWSON MR#: [id number] : 1950 Exam Date: 06/28/2024 Ordering Doctor: DR RUDY ZENDEJAS M.D. ECHOCARDIOGRAM [...] 3.12 cm Aortic Valve AoV Area (Peak Radha): 1.52 cm2, 1.52 cm2 AoV Area (VTI): [...] Pressure: 29.42 ml, 29.42 ml Dictated by: Rudy Zendejas M.D. on 06/29/2024 at 19:07 Approved by: Rudy Zendejas M.D. on 06/29/2024 at 19:14 Dictated By: RUDY ZENDEJAS Signed By: (more content not included)...TBHRadiology, Radiologist, MD - 06/29/2024 [place] [address] Cardiology Report Signed Patient: LAURA LAWSON MR#: [id number] : 1950 Acct:[id number] Age/Sex: 73 / F ADM Date: 06/28/24 Loc: CARD Attending Dr: RUDY ZENDEJAS Ordering Physician: RUYD ZENDEJAS Date of Service: 06/28/24 Procedure(s): CA echo doppler complete Accession Number(s): [id number] cc: ABRAHAM CESAR ; RUDY ZENDEJAS Patient Name: LAURA LAWSON MR#: [id number] : 1950 Exam Date: 06/28/2024 Ordering Doctor: DR RUDY ZENDEJAS M.D. ECHOCARDIOGRAM [...] 3.12 cm Aortic Valve AoV Area (Peak Radha): 1.52 cm2, 1.52 cm2 AoV Area (VTI): [...] Pressure: 29.42 ml, 29.42 ml Dictated by: Rudy Zendejas M.D. on 06/29/2024 at 19:07 Approved by: Rudy Zendejas M.D. on 06/29/2024 at 19:14 Dictated By: RUDY ZENDEJAS Signed By: 06/29/241914 DD/ 13 TD/TT: Quality Project Manager: REYES HealthcareRadiology Study observation (narrative)[facility] HospitalCA ECHO DOPPLER COMPLETEOrdered By: Radiologist Radiology on 50-95-1157QBBF Healthcare Work Phone: [phone] [phone] from [facility] Cardiac Rehab made aware.[facility]36Thanks! Yes, she can resume cardiac rehab but looks like she will be getting PT/OT at the facility for weakness and likely can't do both but rehab can look into this. Thanks![facility]36on Looks like she was just discharged from [facility] yesterday for fall and UTI. I will upload records right now.[facility]36Patient LVM for clinic with questions regarding Ozempic. Patient currently admitted to [facility] s/p recent hospitalization. Nurse at facility stated that patient was on Trulicity and Ozempic during hospitalization. Per last follow-up, patient was to discontinue Trulicity and switch to Ozempic. Confirmed patient is on only 1 GLP1RA at facility; pt to continue on Trulicity 3mg once weekly and stop Ozempic. Chart updated. Campbell Kay, SlimD Cardiology Outpatient Clinical Pharmacist 06/16/24NormalUniversAdams County Hospital36She was recently in the hospital but I'm not sure what for. Can we get those records?[address] Cardiac Rehab just received an order for cardiac rehab on this patient but it's dated for Apr 2024. Can she resume?[facility] HospitalTelephoneon [id number] Laura Lawson William 1950 F Date Provider Department Center 06/16/2024 [id number]-BMWPCAMPBELL AMBROSIO HVCANTICOAG IN HeartVAS Family History Problem Relation Age of Onset JABARI disease Mother Heart attack Father Family Status - Relation Status Age at Mother FatherNormalUniCleveland Clinic [facility] Cultureon 06-13-2024 Bacteria identified Cx Nom (U)ORGANISM: Escherichia coli (MDRO) (O:ESCCOLMDRO) [place] Count >100,000 ORGANISM: Escherichia coli (MDRO) (O:ESCCOLMDRO) [place] Count >100,000 * This is a corrected [...] RESISTANT TO ALL B-LACTAM DRUGS. PERFORMED BY: [place] [id number] PATHOLOGIST SUPERVISOR [employer] NIMISHA PALACIO M.D.NormalThe [facility] Physician GroupComment on above: Performed By: #### CRP, LACTIC, ESR, CMP, CUBLD, CBC #### [facility] [address] [place] [address] BFA26il 12-44-556679Wfuns is no messageNormalUniversity of Christus Mother Frances Hospital – TylerUrinalysis macro (dipstick) panel (U)on 05-12-2024 Bilirubin, UANegativeNegative - 4(70) +++ mg/dLNOMS HealthcareBlood, UAPositive Negative - 50 Tashi/mcLNOMS HealthcareGlucose, UANegativeNegative - 1999(110) ++++ mg/dLNOGA HealthcareInterpretation and review of laboratory resultsAbnormalNOMS HealthcareKetones, UANegativeNegative - 160(16) ++++ mg/dLNOMS Healthcare Leukocytes, UAModerateNegative - 500+++ Braulio/mcLNOGA HealthcareNitrite, UA PositiveNegative - PositiveNOMS HealthcarepH, UA55 - 9NOMS HealthcareProtein, UA NegativeNegative - 1999(20) ++++ mg/dLNOMS HealthcareSpec Grav, UA1.011 - 1.03 NOMS HealthcareUrobilinogen, UA1.00.2 - 12 mg/dLNOGA HealthcareNOGA Healthcare Telephone Visiton 54-20-0232Karymtjng [id number] Laura Lawson 1950 Provider Department Center 05/03/2024 [facility] Family History Problem Relation Age of Onset JABARI disease Mother Heart attack Father Family Status - Relation Status Age at Mother Father Reason for Visit and Comments: PharmD Cardiology Consult [Other][facility] Documentationon [id number] Laura Lawson 1950 Provider Department Center 04/28/2024 [facility] Family History Problem Relation Age of Onset JABARI disease Mother Heart attack Father Family Status - Relation Status Age at Mother Father Reason for Visit and Comments: PharmD Cardiology Consult [Other][facility]37on *Reduce metoprolol succinate to 1 tablet (50mg) daily.Normal [facility] CenterFollow-Upon 30-26-3967Covopp-[id number] Laura Lawson 1950 Provider Department Center 04/27/2024 [facility] Family History Problem Relation Age of Onset JABARI disease Mother Heart attack Father Family Status - Relation Status Age at Mother Father Level of Service:10207 [place] OFFICE/OUTPATIENT ESTABLISHED MOD MDM 30 MIN Reason for Visit and Comments: Congestive Heart Failure [127] Coronary Artery Disease [187] Hypertension [777277][facility]36on Attempted a call back but there was no answer,.[facility]36Discharge date: 04/22/24 Call date: 04/23/24 Spoke with: [...] story writer ask the follow up provider. Cooker Sulfate reached out and is awaiting a response. Pt is aware of her follow up appt and has transportation to this appt. No other questions or concerns at this time.[facility] [id number] Fara Lawsonine A 1950 Date Provider Department Center 04/23/2024 [facility] IN HeartVAS Family History Problem Relation Age of Onset JABARI disease Mother Heart attack Father Family Status - Relation Status Age at Mother Father Reason for Visit and Comments: HF inpatient satisfaction survey sent. [Other][facility] HospitalTelephoneon [id number] Fara Lawsonine A 1950 Provider Department Center 04/23/2024 [facility] Medical C Family History Problem Relation Age of Onset JABARI disease Mother Heart attack Father Family Status - Relation Status Age at Mother Father Reason for Visit and Comments: post hospital call back [Other][facility] [id number] Fara Lawsonine A 1950 Date Provider Department Center 04/23/2024 [facility] IN HeartVAS Family History Problem Relation Age of Onset JABARI disease Mother Heart attack Father Family Status - Relation Status Age at Mother Father Reason for Visit and Comments: HF post discharge call [Other][facility]30on [id number] patient is Moderately Stable - Low risk [...] for signs and symptoms of bleeding or hemorrhageNormalUniversity [facility] WITH AUTO DIFFERENTIALon 94-61-3994Dpqwebdlrxi distribution width (RBC) [Ratio]16.6 %High11.5-15.0 [facility] CenterComment on above:Performed By: #### [id number] #### [facility] ([facility]) [address] [place], [place] [address]UAGAMDAXOYV MEAN CORPUSCULAR HEMOGLOBIN CONCENTRATION (G/DL) BY WIAFGGIMU52.8 g/dLLow32.0-35.0UnWilson HealthComment on above:Performed By: #### [id number] #### [facility] ([facility]) [address] [place], [place] [address]Iadmgzrsze (Bld) [Volume fraction]40.3 %Wvbkhv90.0-48.0 [facility] CenterComment on above:Performed By: #### [id number] #### [facility] ([facility]) [address] [place], [place] [address]Zcbucmnzpj (Bld) [Mass/Vol]12.4 g/sBJhepak28.0-15.0UnWilson HealthComment on above:Performed By: #### [id number] #### [facility] ([facility]) [address] [place], [place] [address]HBO (RBC) [Entitic mass]28.4 raSifzyg69.0-33.0UnWilson HealthComment on above:Performed By: #### [id number] #### [facility] ([facility]) [address] [place] [address]NVS (RBC) [Entitic vol]92.4 oWRdyelq52.0-98.0UnWilson HealthComment on above:Performed By: #### [id number] #### [facility] ([facility]) [address] [place] [address]ROJX (PER 100 WBCS) BY AUTOMATED COUNT0.0 %Klgqek0CyiekbojesWilson HealthComment on above:Performed By: #### [id number] #### [facility] ([facility]) [address] [place] [address]RNOWRKZON (10*3/UL) IN BLOOD AUTOMATED [id number] 10*3/uLHigh 150-400UnWilson HealthComment on above:Performed By: #### [id number] #### [facility] ([facility]) [address] [place] [address]DVG (Bld) [#/Vol]4.36 10*6/uLNormal3.80-5.00UnWilson HealthComment on above:Performed By: #### [id number] #### [facility] ([facility]) [address] [place] [address]NVN (Bld) [#/Vol]13.41 10*3/uLHigh4.00-10.60UnWilson HealthComment on above:Performed By: #### [id number] #### [facility] ([facility]) [address] [place] [address]KPFNNQWLHRTWM METABOLIC PANELon 55-13-6748Fjxilte [Mass/Vol]3.1 g/dLLow3.5-5.7UnWilson HealthComment on above:Performed By: #### [id number] ####[facility] ([facility])[address] [place] [address]CWV [Catalytic activity/Vol]77 U/RWhsyip97-725CquoijpqlxWilson Health Comment on above:Performed By: #### [id number] ####[facility] ([facility])[address] [place], [place] [address]LGU [Catalytic activity/Vol]23 U/LNormal7-52 [facility] CenterComment on above:Performed By: #### [id number] ####[facility] ([facility])[address] [place], [place] [address]Qcgty gap [Moles/Vol]9 mmol/LNormal7-20UnWilson HealthComment on above:Performed By: #### [id number] ####[facility] ([facility])[address] [place], [place] [address]OOH [Catalytic activity/Vol]20 U/MQparwf04-78WcutdkwswlWilson HealthComment on above:Performed By: #### [id number] ####[facility] ([facility])[address] [place], [place] [address]Jzgqdsjuj [Mass/Vol]0.6 mg/dL Normal0.3-1.0UnWilson HealthComment on above:Performed By: #### [id number] ####[facility] ([facility])[address] [place] [address] Calcium [Mass/Vol]9.4 mg/dLNormal8.6-10.3Un[facility] Health Comment on above:Performed By: #### [id number] ####[facility] ([facility])[address] [place], [place] [address]Nzgoqxxc [Moles/Vol]106 mmol/EUznjnc46-939 [facility] CenterComment on above:Performed By: #### [id number] ####[facility] ([facility])[address] [place], [place] [address]MK3 [Moles/Vol] 27 mmol/PIqqhqh61-63RmiytdeesnWilson HealthComment on above: Performed By: #### [id number] ####[facility] ([facility])[address] [place], [place] [address]Odaeirnbzc [Mass/Vol]1.18 mg/dLNormal0.60-1.20UnWilson HealthComment on above:Performed By: #### [id number] ####[facility] ([facility])[address] [place] [address]RUFHXNOYJM FILTRATION RATE ML/MIN/1.73 SQ M.CSMSOGEGL49.4 mL/min/1.73m*2Low>60.0UnWilson Health Comment on above:Result Comment: The [facility]???s estimated glomerular filtration rate (eGFR) will no longer include consideration of race in its calculation. The National Kidney Foundation???s eGFR Task Force developed new recommendations for the estimation of the glomerular filtration ra te in the [place] They recommend immediate implementation of the new equation refit without the race variable in all laboratories because the calculation does not include race. In addition to not including race in the calculation and reporting, it included diversity in its development, and has acceptable performance characteristics and potential consequences that do not disproportionately affect anyone group of individuals.Performed By: #### [id number] ####[facility] ([facility])[address] [place] [address]Irssben [Mass/Vol]111 mg/dDGhdp08-287LbsihfukvmWilson HealthComment on above:Performed By: #### [id number] ####[facility] ([facility])[address] [place] [address]Nqaaguqlw [Moles/Vol]3.9 mmol/LNormal3.5-5.1UnWilson HealthComment on above:Performed By: #### [id number] ####[facility] ([facility])[address] [place], [place] [address]Rxcqbhc [Mass/Vol]5.7 g/dLLow 6.0-8.3UnWilson HealthComment on above:Performed By: #### [id number] ####[facility] ([facility])[address] [place], [place] [address]Ihpdyi [Moles/Vol]138 mmol/ZPkmdhq085-325KgftaitxcqWilson HealthComment on above:Performed By: #### [id number] ####[facility] ([facility])[address] [place], [place] [address]Inxe nitrogen [Mass/Vol]40 mg/dLHigh7-25UnWilson HealthComment on above:Performed By: #### [id number] ####[facility] ([facility])[address] [place] [address]NMBU NITROGEN/CREATININE (MASS RATIO) IN SER/PLAS33.9NormalUniversAdams County HospitalComment on above: Performed By: #### [id number] ####[facility] ([facility])[address] [place] [address]ARHAIPEWUct 49-12-1081Nnlnxdziw [Mass/Vol]2.3 mg/dLNormal1.9-2.7 [facility] CenterComment on above:Performed By: #### [id number] #### [facility] ([facility]) [address] [place] [address]QIQMFE DIFFERENTIALon 88-97-0815PWMEJDTSW (10*3/UL) IN BLOOD BY CALCULATION0.05 10*3/uLNormal0.00-0.20UnWilson HealthComment on above:Performed By: #### [id number] #### [facility] ([facility]) [address] [place] [address]VABTLUYNV/100 LEUKOCYTES IN BLOOD BY AUTOMATED COUNT0.4 %Normal 0.0-1.0UnWilson HealthComment on above:Performed By: #### [id number] #### [facility] ([facility]) [address] [place] [address]ZWPIIVGPTJH (10*3/UL) IN BLOOD BY CALCULATION0.24 10*3/uLNormal 0.00-0.50UnWilson HealthComment on above:Performed By: #### [id number] #### [facility] ([facility]) [address] [place] [address]RYWWWHEXONK/100 LEUKOCYTES IN BLOOD BY AUTOMATED COUNT1.8 % Normal0.0-6.0UnWilson HealthComment on above:Performed By: #### [id number] #### [facility] ([facility]) [address] [place] [address]KQWWLTGW GRANULOCYTES (10*3/UL) IN BLOOD BY CALCULATION0.05 10*3/uLNormal0.00-0.20UnWilson HealthComment on above: Performed By: #### [id number] #### [facility] ([facility]) [address] [place] [address]XZDXAULQ GRANULOCYTES/100 LEUKOCYTES IN BLOOD BY AUTOMATED COUNT 0.4 %Normal0.0-1.0UnWilson HealthComment on above:Performed By: #### [id number] #### [facility] ([facility]) [address] [place] [address]SRLBGKVWWXJ (10*3/UL) IN BLOOD BY CALCULATION1.43 10*3/uLNormal 1.20-4.00UnWilson HealthComment on above:Performed By: #### [id number] #### [facility] ([facility]) [address] [place] [address]HMAPZLZWVYM/100 LEUKOCYTES IN BLOOD BY AUTOMATED COUNT10.7 %Low 20.0-45.0UnWilson HealthComment on above:Performed By: #### [id number] #### [facility] ([facility]) [address] [place] [address]HPVTZFFXI (10*3/UL) IN BLOOD BY CALCUATION1.82 10*3/uLHigh 0.10-1.00UnWilson HealthComment on above:Performed By: #### [id number] #### [facility] ([facility]) [address] [place] [address]EXLHTWCLU/100 LEUKOCYTES IN BLOOD BY AUTOMATED COUNT13.6 %High 5.0-12.0UnWilson HealthComment on above:Performed By: #### [id number] #### [facility] ([facility]) [address] [place] [address]OEUIPHGKCRJ (10*3/UL) IN BLOOD BY CALCULATION9.8 10*3/uLHigh 1.6-7.6UnWilson HealthComment on above:Performed By: #### [id number] #### [facility] ([facility]) [address] [place], [place] [address]WFFHFKIXXSU/100 LEUKOCYTES IN BLOOD BY AUTOMATED COUNT73.1 %High 40.0-72.0UnWilson HealthComment on above:Performed By: #### [id number] #### [facility] ([facility]) [address] [place] [address]YEEMJYNIya 48-24-8972LTAETAAZJSR reviewed with patient, patient verbalized understanding, wheelchair offered and accepted. Patient discharged via wheelchair by harman Begum without complications.NormalUnWilson HealthPOCT GLUCOSE METER UNSOLICITED RESULTSon 41-57-3176Tyorbnh [Mass/Vol]267 mg/rBWukn54-967MtbcjerojvWilson HealthComment on above:Order Comment: Waived Testing in the ED is performed under the ED CLIA certificate #[id number].Result Comment: [email or web address] Performed By: #### [id number] ####[facility] ([facility])[address] [place], [place] [address]Bnmzygo [Mass/Vol]136 mg/vBDajp27-854DasqwttedhWilson HealthComment on above:Order Comment: Waived Testing in the ED is performed under the ED CLIA certificate #[id number].Result Comment: [email or web address] Performed By: #### [id number] #### [facility] ([facility]) [address] [place], [place] [address] 12-17-324040Vrd patient is Moderately Stable - Low risk [...] prescribed range: Monitor blood glucose as ordered [facility]30The patient is Moderately Stable - Low risk [...] level or baseline comfort level Outcome: Progressing .[facility]30Daily Case Management Update Multidisciplinary rounds have been [...] Question: Reason for PT? Answer: decondtioing 04/19/24 0537NormalUniversMet[facility] WITH AUTO DIFFERENTIAL on 15-63-6177Oxmdnnuciof distribution width (RBC) [Ratio]16.6 %High11.5-15.0 [facility] CenterComment on above:Performed By: #### [id number] #### [facility]) [address] [place], [place] [address]NZOVMHVHOPT MEAN CORPUSCULAR HEMOGLOBIN CONCENTRATION (G/DL) BY APJNLILPA80.8 g/dLLow32.0-35.0Un[facility] Health Comment on above:Performed By: #### [id number] #### [facility]) [address] [place], [place] [address]Rbumtmhzss (Bld) [Volume fraction]40.2 %Ihlncz74.0-48.0 [facility] CenterComment on above:Performed By: #### [id number] #### [facility]) [address] [place], [place] [address]Rtkqctwlmd (Bld) [Mass/Vol]12.8 g/tKXnwcio53.0-15.0 [facility] CenterComment on above:Performed By: #### [id number] #### [facility]) [address] [place], [place] [address]TAA (RBC) [Entitic mass]29.0 mcEwnzts08.0-33.0UnWilson HealthComment on above:Performed By: #### [id number] #### [facility]) [address] [place], [place] [address]MUA (RBC) [Entitic vol]91.0 mZNmysha08.0-98.0UnWilson HealthComment on above:Performed By: #### [id number] #### [facility] ([facility]) [address] [place], [place] [address]JFUW (PER 100 WBCS) BY AUTOMATED COUNT0.0 %Normal0 [facility] CenterComment on above:Performed By: #### [id number] #### [facility]) [address] [place], [place] [address]QQAWQUAXY (10*3/UL) IN BLOOD AUTOMATED [id number] 10*3/uL Chtm628-573YlposherlkWilson HealthComment on above:Performed By: #### [id number] #### [facility] ([facility]) [address] [place], [place] [address]RFK (Bld) [#/Vol]4.42 10*6/uLNormal3.80-5.00UnWilson HealthComment on above:Performed By: #### [id number] #### [facility] ([facility]) [address] [place], [place] [address]BWU (Bld) [#/Vol]17.29 10*3/uLHigh4.00-10.60UnWilson HealthComment on above:Performed By: #### [id number] #### [facility] ([facility]) [address] [place], [place] [address]JLXRJDFQZKVOE METABOLIC PANELon 30-39-5493Fppymug [Mass/Vol]3.3 g/dLLow3.5-5.7UnWilson HealthComment on above: Performed By: #### [id number] ####[facility] ([facility])[address] [place], [place] [address]RJN [Catalytic activity/Vol]96 U/ACypmqy45-143MhyiquhsbbWilson HealthComment on above:Performed By: #### [id number] ####[facility] ([facility])[address] [place], [place] [address]BVF [Catalytic activity/Vol]31 U/L Normal7-52UnWilson HealthComment on above:Performed By: #### [id number] ####[facility] ([facility])[address] [place], [place] [address]Ggcfb gap [Moles/Vol]12 mmol/LNormal7-20UnWilson HealthComment on above:Performed By: #### [id number] ####[facility] ([facility])[address] [place], [place] [address]BXU [Catalytic activity/Vol]27 U/UDrhefw14-20NjnhorgohoWilson HealthComment on above:Performed By: #### [id number] ####[facility] ([facility] [place], [place] [address]Ldnkzzmwi [Mass/Vol]0.6 mg/dL Normal0.3-1.0UnWilson HealthComment on above:Performed By: #### [id number] ####[facility] ([facility])[address] [place] [address] Calcium [Mass/Vol]9.7 mg/dLNormal8.6-10.3Un[facility] Comment on above:Performed By: #### [id number] ####[facility] ([facility])[address] [place], [place] [address]Vxkrxuph [Moles/Vol]104 mmol/CXyjzvj67-321 [facility] CenterComment on above:Performed By: #### [id number] ####[facility] ([facility])[address] [place], [place] [address]CR8 [Moles/Vol] 24 mmol/SSgicwj40-70GpbtiypsxkWilson HealthComment on above: Performed By: #### [id number] ####[facility] ([facility])[address] [place], [place] [address]Sdenrpermm [Mass/Vol]1.03 mg/dLNormal0.60-1.20UnWilson HealthComment on above:Performed By: #### [id number] ####[facility] ([facility])[address] [place], [place] [address]MMCVZSXXUD FILTRATION RATE ML/MIN/1.73 SQ M.FDQHSRSML19.1 mL/min/1.73m*2Low>60.0Un[facility] Comment on above:Result Comment: The [facility]???s estimated glomerular filtration rate (eGFR) will no longer include consideration of race in its calculation. The National Kidney Foundation???s eGFR Task Force developed new recommendations for the estimation of the glomerular filtration ra te in the [place] They recommend immediate implementation of the new equation refit without the race variable in all laboratories because the calculation does not include race. In addition to not including race in the calculation and reporting, it included diversity in its development, and has acceptable performance characteristics and potential consequences that do not disproportionately affect anyone group of individuals.Performed By: #### [id number] ####[facility] ([facility])[address] [place], [place] [address]Itlpzjx [Mass/Vol]139 mg/cJCiaz81-647EeeajpanuvWilson HealthComment on above:Performed By: #### [id number] ####[facility] ([facility])[address] [place], [place] [address]Lzztterdq [Moles/Vol]3.8 mmol/LNormal3.5-5.1UnWilson HealthComment on above:Performed By: #### [id number] ####[facility] ([facility])[address] [place], [place] [address]Xocfzoj [Mass/Vol]6.1 g/dLNormal 6.0-8.3UnWilson HealthComment on above:Performed By: #### [id number] ####[facility] ([facility])[address] [place], [place] [address]Gnhmwo [Moles/Vol]136 mmol/JEsmgzi094-868RlaibfhvfpWilson HealthComment on above:Performed By: #### [id number] ####[facility] ([facility])[address] [place], [place] [address]Gydf nitrogen [Mass/Vol]40 mg/dLHigh7-25UnWilson HealthComment on above:Performed By: #### [id number] ####[facility] ([facility])[address] [facility] [place], [place] [address]UTCW NITROGEN/CREATININE (MASS RATIO) IN SER/PLAS38.8NormalUniversAdams County HospitalComment on above: Performed By: #### [id number] ####[facility] ([facility])[address] [place], [place] [address]GDIERFFOKwd 68-48-8940Gvtjdvpbl [Mass/Vol]2.2 mg/dLNormal1.9-2.7 [facility] CenterComment on above:Performed By: #### [id number] #### [facility] ([facility]) [address] [place], [place] [address]HXEWEA DIFFERENTIALon 95-70-3862ZKCCWYNNJ (10*3/UL) IN BLOOD BY CALCULATION0.00 10*3/uLNormal0.00-0.20UnWilson HealthComment on above:Performed By: #### [id number] #### [facility] ([facility]) [address] [place], [place] [address]YOZAZYNYZ/100 LEUKOCYTES IN BLOOD BY AUTOMATED COUNT0.0 %Normal 0.0-1.0UnWilson HealthComment on above:Performed By: #### [id number] #### [facility] ([facility]) [address] [facility] CAMPUSVish [place], [place] [address]ILWQZIMNVSR (10*3/UL) IN BLOOD BY CALCULATION0.00 10*3/uLNormal 0.00-0.50UnWilson HealthComment on above:Performed By: #### [id number] #### [facility] ([facility]) [address] [place], [place] [address]QNXAYWPJZOL/100 LEUKOCYTES IN BLOOD BY AUTOMATED COUNT0.0 % Normal0.0-6.0UnWilson HealthComment on above:Performed By: #### [id number] #### [facility] ([facility]) [address] [facility] [place], [place] [address]GYHTWOER GRANULOCYTES (10*3/UL) IN BLOOD BY CALCULATION0.10 10*3/uLNormal0.00-0.20UnWilson HealthComment on above: Performed By: #### [id number] #### [facility] ([facility]) [address] [place], [place] [address]DCRITAHM GRANULOCYTES/100 LEUKOCYTES IN BLOOD BY AUTOMATED COUNT 0.6 %Normal0.0-1.0UnWilson HealthComment on above:Performed By: #### [id number] #### [facility] ([facility]) [address] [place], [place] [address]VEKIWFXUASQ (10*3/UL) IN BLOOD BY CALCULATION0.92 10*3/uLLow 1.20-4.00UnWilson HealthComment on above:Performed By: #### [id number] #### [facility] ([facility]) [address] [place] [address]PLLMIWNSRER/100 LEUKOCYTES IN BLOOD BY AUTOMATED COUNT5.3 %Low 20.0-45.0UnWilson HealthComment on above:Performed By: #### [id number] #### [facility] ([facility]) [address] [place] [address]IVVBKMMMU (10*3/UL) IN BLOOD BY CALCUATION1.61 10*3/uLHigh 0.10-1.00UnWilson HealthComment on above:Performed By: #### [id number] #### [facility] ([facility]) [address] [place] [address]CWEZVAJQP/100 LEUKOCYTES IN BLOOD BY AUTOMATED COUNT9.3 %Normal 5.0-12.0UnWilson HealthComment on above:Performed By: #### [id number] #### [facility] ([facility]) [address] [place] [id number] (10*3/UL) IN BLOOD BY ULHZODOLMDC90.8 10*3/uLHigh 1.6-7.6UnWilson HealthComment on above:Performed By: #### [id number] #### [facility] ([facility]) [address] [place] [address]NBVPTSFPIAB/100 LEUKOCYTES IN BLOOD BY AUTOMATED COUNT85.4 %High 40.0-72.0UnWilson HealthComment on above:Performed By: #### [id number] #### [facility] ([facility]) [address] [place], [place] [address]UFEKKF CELLS/100 LEUKOCYTES IN BLOOD0 %Rzxaxh2DttvgudogpWilson HealthComment on above:Performed By: #### [id number] #### [facility] ([facility]) [address] [place], [place] [id number] LYMPHOCYTES (10*3/UL) IN BLOOD BY CALCULATION0.00 10*3/uLNormal0.00UnWilson HealthComment on above:Performed By: #### [id number] #### [facility] ([facility]) [address] [place] [address]BEHPVVM LYMPHOCYTES/100 LEUKOCYTES IN BLOOD CELLAVISION0.0 % Normal0.0-0.0UnWilson HealthComment on above:Performed By: #### [id number] #### [facility] ([facility]) [address] [place], [place] [address]SEUW GLUCOSE METER UNSOLICITED RESULTSon 21-37-0699Idgbynd [Mass/Vol]195 mg/fUDmlb15-651JmaqqtvkrnWilson HealthComment on above:Order Comment: Waived Testing in the ED is performed under the ED CLIA certificate #[id number].Result Comment: fbrcuzd22Kndqkjejz By: #### [id number] #### [facility] ([facility]) [address] [place] [address]Trdepga [Mass/Vol]277 mg/iVPuae62-879OxcdbejlrzWilson HealthComment on above:Order Comment: Waived Testing in the ED is performed under the ED CLIA certificate #[id number].Result Comment: [email or web address] Performed By: #### [id number] #### [facility] ([facility]) [address] [place], [place] [address]Gsqljln [Mass/Vol]165 mg/fRKlkb37-917BcdzqicoiuWilson HealthComment on above:Order Comment: Waived Testing in the ED is performed under the ED CLIA certificate #[id number].Result Comment: [email or web address] Performed By: #### [id number] #### [facility] ([facility]) [address] [place], [place] [address]Qctqsvt [Mass/Vol]177 mg/bFXvvd63-950XnobdqismcWilson HealthComment on above:Order Comment: Waived Testing in the ED is performed under the ED CLIA certificate #[id number].Result Comment: [id number] Performed By: #### [id number] #### [facility] ([facility]) [address] [place], [place] [address]Lysjvqd [Mass/Vol]226 mg/fNQwaq67-689SqipuhchigWilson HealthComment on above:Order Comment: Waived Testing in the ED is performed under the ED CLIA certificate #[id number].Result Comment: [email or web address] Performed By: #### [id number] #### [facility] ([facility]) [address] [place], [place] [address]dj 87-54-786980Qkg patient is Moderately Unstable - Medium risk [...] - Adult Goal: Maintains hematologic stability Outcome: ProgressingNormalUniversAdams County Hospital30The patient is Moderately Stable - Low risk [...] level or baseline comfort level Outcome: Progressing .NormalUnWilson Health30Daily Case Management Update Multidisciplinary rounds have been completed. Barriers to Discharge: Pending clinical course and improvement in clinical condition. Admitted with c/o CP, NSTEMI. Transferred from [facility]. History of cardiac stent with Impella [...] Question: Reason for PT? Answer: decondtioing 04/19/24 0537NormalUniversAdams County HospitalB-TYPE NATRIURETIC PEPTIDE on 64-25-2804Ztubtkxlncj peptide B (Bld) [Mass/Vol]4139 pg/mLHigh0-100UnWilson HealthComment on above:Performed By: #### [id number] ####[facility] ([facility])[address] [place], [place] [address]NIJFC METABOLIC PANELon 38-30-4050Chdyi gap [Moles/Vol]13 mmol/LNormal7-20UnWilson HealthComment on above:Performed By: #### [id number] #### [facility] ([facility]) [address] [place], [place] [address]Umxqflj [Mass/Vol]9.9 mg/dLNormal8.6-10.3UnWilson HealthComment on above:Performed By: #### [id number] #### [facility] ([facility]) [address] [place], [place] [address]Xigovxto [Moles/Vol]102 mmol/UIafuvz33-206CwxdklomtkWilson HealthComment on above:Performed By: #### [id number] #### [facility] ([facility] [place] [address] [place], [place] [address]PS8 [Moles/Vol]24 mmol/MNixmqm60-25MdcdogswftWilson HealthComment on above:Performed By: #### [id number] #### [facility] ([facility]) [address] [place], [place] [address]Agvzzzuyns [Mass/Vol]0.93 mg/dLNormal0.60-1.20UnWilson HealthComment on above:Performed By: #### [id number] #### [facility] ([facility] [place]) [address] [place], [place] [address]JXVGNDQJZI FILTRATION RATE ML/MIN/1.73 SQ M.PREDICTED 65.7 mL/min/1.73m*2Normal>60.0UnWilson HealthComment on above:Result Comment: The [facility]???s estimated glomerular filtration rate (eGFR) will no [...] potential consequences that do not disproportionately affect anyone group of individuals.Performed By: #### [id number] #### [facility] ([facility]) [address] [place], [place] [address]Ybegxnz [Mass/Vol]182 mg/iARbjn53-326KgkdqlvuaaWilson HealthComment on above:Performed By: #### [id number] #### [facility] ([facility]) [address] [place], [place] [address]Whpxnxtsh [Moles/Vol]4.0 mmol/LNormal3.5-5.1UnWilson HealthComment on above:Performed By: #### [id number] #### [facility] ([facility] [place]) [address] [place], [place] [address]Uuicyb [Moles/Vol]135 mmol/SDdg843-711IfnvofpmzuWilson HealthComment on above:Performed By: #### [id number] #### [facility] ([facility] [place]) [address] [place], [place] [address]Bklw nitrogen [Mass/Vol]30 mg/dLHigh7-25UnWilson HealthComment on above:Performed By: #### [id number] #### [facility] ([facility]) [address] [place], [place] [address]ICQN NITROGEN/CREATININE (MASS RATIO) IN SER/PLAS32.3 NormalUnWilson HealthComment on above:Performed By: #### [id number] #### [facility] ([facility] [place]) [address] [place], [place] [address]DOG WITH AUTO DIFFERENTIALon 69-43-2526Iznmddnbuxj distribution width (RBC) [Ratio]16.7 %High11.5-15.0UnWilson HealthComment on above:Performed By: #### [id number] #### [facility] ([facility] [place] [address] [place], [place] [address]LYGTUGJDIAL MEAN CORPUSCULAR HEMOGLOBIN CONCENTRATION (G/DL) BY QZNSHWZJG03.9 g/dLLow32.0-35.0UnWilson HealthComment on above:Performed By: #### [id number] #### [facility] ([facility]) [address] [place], [place] [address]Loxylnwvtq (Bld) [Volume fraction]40.1 %Gnupyc69.0-48.0 [facility] CenterComment on above:Performed By: #### [id number] #### [facility] ([facility] [place]) [address] [place], [place] [address]Grbbhkaeou (Bld) [Mass/Vol]12.4 g/fMPlqhgi50.0-15.0UnWilson HealthComment on above:Performed By: #### [id number] #### [facility] ([facility]) [address] [place] [address]XGN (RBC) [Entitic mass]28.4 jsMtfztn80.0-33.0UnWilson HealthComment on above:Performed By: #### [id number] #### [facility] ([facility]) [address] [place] [address]RLB (RBC) [Entitic vol]91.8 bWSsxfjj88.0-98.0UnWilson HealthComment on above:Performed By: #### [id number] #### [facility] ([facility]) [address] [place] [address]HRQQ (PER 100 WBCS) BY AUTOMATED COUNT0.0 %Lvjmye4QvdrmpilxnWilson HealthComment on above:Performed By: #### [id number] #### [facility] ([facility]) [address] [place] [address]FBYXVOYIB (10*3/UL) IN BLOOD AUTOMATED [id number] 10*3/uLNormal 150-400UnWilson HealthComment on above:Performed By: #### [id number] #### [facility] ([facility]) [address] [place] [address]AVI (Bld) [#/Vol]4.37 10*6/uLNormal3.80-5.00UnWilson HealthComment on above:Performed By: #### [id number] #### [facility] ([facility]) [address] [place] [address]AWJ (Bld) [#/Vol]21.55 10*3/uLHigh4.00-10.60UnWilson HealthComment on above:Performed By: #### [id number] #### [facility] ([facility]) [address] [place], [place] [address]XWU0P37 GENOTYPINGon 65-20-86089S03XQGD INTERPRETATIONSee Note Martins Ferry HospitalComment on above:Result Comment: The following IGX0O57 allele(s) were detected: *1/*17. This result predicts the rapid metabolizer phenotype. Recommendation: Guidelines for genotype-based dosing are published by the Clinical Pharmacogenetics Implementation Consortium(CPIC) and can be found at: https://cpicpgx.org/ and https://www.pharmgkb.org/. This result has been reviewed and approved by Abad Worthy M.D. BACKGROUND INFORMATION: QZN0V15 Characteristics: The cytochrome P450 (CYP) isozyme 2C19 is involved in the metabolism of many drugs. Variants in the gene that code for BDH5H26 will influence pharmacokinetics of ISB2W37 substrates, and may predict or explain non-standard dose requirements, therapeutic failure or adverse reactions. Inheritance: Autosomal codominant. Cause: DDY2V90 gene variants affect enzyme function. Variants Tested: (Variants are numbered according to [id number] transcript). *1: Indicative of no detected targeted variants and an assumption of functional allele. No variants detected is predictive of the *1 functional allele. NON6A07*2: hg6461337, c.681G>A; [id number], c.332-23A>G LXQ5A49*3: sg2343128, c.636G>A SJW1P19*4A: bl53384760, c.1A>G XJB0D21*4B: cb88491122, c.1A>G; ax75184420, c.-806C>T WGZ0R30*5: wb12405383, c.1297C>T MAZ8D40*6: wp62548311, c.395G>A GNM7U27*7: mt46781976, c.819+2T>A PKE2E63*8: et14986136, c.358T>C ELJ6F73*9: uw88666053, c.431G>A KNT5N96*17: we14032233, c.-806C>T FGH4M06*35: rm32315717, c.332-23A>G Clinical Sensitivity: Drug-dependent. Methodology: Polymerase chain reaction (PCR) and fluorescence monitoring. Analytical Sensitivity and Specificity: Greater than 99 percent. Limitations: Only the targeted ZEP8H34 variants will be detected by this panel, and assumptions about phase and content are made to assign alleles. Publicly available sources such as the www.pharmvar.org or www.pharmgkb.org provide guidance on phenotype predictions and allele frequencies. Diagnostic errors can occur due to rare sequence variations. Risk of therapeutic failure or adverse reactions with YGD2E57 substrates may be affected by genetic and [...] developed and its performance characteristics determined by [employer]. It has not been cleared or approved by the US Food and Drug Administration. This test was performed in a CLIA certified laboratory and is intended for clinical purposes. Counseling and informed consent are recommended for genetic testing. Consent forms are available online.Performed By: #### [id number] #### [facility] ([facility]) [address] [place], [place] [address]TNTZ SPECIMENWhole BloodNormalUniversAdams County HospitalComthree rivers health hospital on above:Performed By: #### [id number] #### [facility]) [address] [place], [place] [address]YHW7X17 GENOTYPE*1/*17NormalURiverside Methodist HospitalComthree rivers health hospital on above:Performed By: #### [id number] #### [facility]) [address] [place], [place] [address]QKB0H09 PHENOTYPERapidAbnormalMetroHealth Cleveland Heights Medical CenterComthree rivers health hospital on above:Performed By: #### [id number] #### [facility]) [address] [place], [place] [address]EJP GOE1W74Ybh NoteNormalUniProMedica Defiance Regional HospitalComthree rivers health hospital on above:Result Comment: Authorized individuals can access the [employer] Enhanced Report using the following link: [email or web address] Performed By: [employer] [address] [place] [address] Donkey Doctor: Chuck Burr MD, PhD CLIA Number: [id number] By: #### [id number] #### [facility] ([facility]) [address] [place], [place] [address]LSCGXQU FUNCTION PANELon 71-91-0290Fsgytfm [Mass/Vol]3.3 g/dLLow3.5-5.7UnWilson HealthComment on above:Performed By: #### [id number] #### [facility] ([facility]) [address] [place], [place] [address]EXD [Catalytic activity/Vol]105 U/XXyfn35-553LbxidmiuisWilson HealthComment on above:Performed By: #### [id number] #### [facility] ([facility]) [address] [place], [place] [address]UFX [Catalytic activity/Vol]42 U/LNormal7-52UnWilson HealthComment on above:Performed By: #### [id number] #### [facility] ([facility]) [address] [place], [place] [address]IZR [Catalytic activity/Vol]47 U/JJsmu30-89LhdtmimdnbWilson HealthComment on above:Performed By: #### [id number] #### [facility] ([facility]) [address] [place], [place] [address]Ecdmsyzcc [Mass/Vol]1.0 mg/dLNormal0.3-1.0UnWilson HealthComment on above:Performed By: #### [id number] #### [facility] ([facility]) [address] [place], [place] [address]Fuzfttnqw [Mass/Vol]0.2 mg/dLNormal0-0.2UnWilson HealthComment on above:Performed By: #### [id number] #### [facility] ([facility]) [address] [place], [place] [address]Adssjgz [Mass/Vol]6.1 g/dLNormal6.0-8.3UnWilson HealthComment on above:Performed By: #### [id number] #### [facility] ([facility]) [address] [place], [place] [address]RWZHETEDGIL A (LPA)on 83-87-0453Dutibmpqj [Mass/Vol]88 mg/dLHigh <=29UnWilson HealthComment on above:Result Comment: Performed By: [facility] [address] [place] [address] Donkey Doctor: Chuck Burr MD, PhD CLIA Number: [id number] By: #### [id number] #### [facility] ([facility]) [address] [place], [place] [address]VOLHZI DIFFERENTIALon 46-56-4585IKHDXUFIB (10*3/UL) IN BLOOD BY CALCULATION0.00 10*3/uLNormal0.00-0.20UnWilson HealthComment on above:Performed By: #### [id number] #### [facility] ([facility]) [address] [place], [place] [address]MCGYLDCRF/100 LEUKOCYTES IN BLOOD BY AUTOMATED COUNT0.0 %Normal 0.0-1.0UnWilson HealthComment on above:Performed By: #### [id number] #### [facility] ([facility]) [address] [place], [place] [address]JIQEIVRKULF (10*3/UL) IN BLOOD BY CALCULATION0.00 10*3/uLNormal 0.00-0.50UnWilson HealthComment on above:Performed By: #### [id number] #### [facility] ([facility]) [address] [place], [place] [address]WYECACEWAGA/100 LEUKOCYTES IN BLOOD BY AUTOMATED COUNT0.0 % Normal0.0-6.0UnWilson HealthComment on above:Performed By: #### [id number] #### [facility] ([facility]) [address] [place], [place] [address]XGWUDASD GRANULOCYTES (10*3/UL) IN BLOOD BY CALCULATION0.13 10*3/uLNormal0.00-0.20UnWilson HealthComment on above: Performed By: #### [id number] #### [facility] ([facility]) [address] [place] [address]GRITYMBM GRANULOCYTES/100 LEUKOCYTES IN BLOOD BY AUTOMATED COUNT 0.6 %Normal0.0-1.0UnWilson HealthComment on above:Performed By: #### [id number] #### [facility] ([facility]) [address] [place] [address]XTJQWSZDMNZ (10*3/UL) IN BLOOD BY CALCULATION1.14 10*3/uLLow 1.20-4.00UnWilson HealthComment on above:Performed By: #### [id number] #### [facility] ([facility]) [address] [place] [address]SOSESUEDCMN/100 LEUKOCYTES IN BLOOD BY AUTOMATED COUNT5.3 %Low 20.0-45.0UnWilson HealthComment on above:Performed By: #### [id number] #### [facility] ([facility]) [address] [place] [address]DUFSDJCPJ (10*3/UL) IN BLOOD BY CALCUATION2.00 10*3/uLHigh 0.10-1.00UnWilson HealthComment on above:Performed By: #### [id number] #### [facility] ([facility]) [address] [place] [address]PYVNCUMMO/100 LEUKOCYTES IN BLOOD BY AUTOMATED COUNT9.3 %Normal 5.0-12.0UnWilson HealthComment on above:Performed By: #### [id number] #### [facility] ([facility]) [address] [place] [address]EABWKRKIHBG (10*3/UL) IN BLOOD BY KDHFYRHKQZG65.4 10*3/uLHigh 1.6-7.6UnWilson HealthComment on above:Performed By: #### [id number] #### [facility] ([facility]) [address] [place], [place] [address]HZFYKDWHWAW/100 LEUKOCYTES IN BLOOD BY AUTOMATED COUNT85.4 %High 40.0-72.0UnWilson HealthComment on above:Performed By: #### [id number] #### [facility] ([facility]) [address] [place], [place] [address]MBNPCN CELLS/100 LEUKOCYTES IN BLOOD0 %Wxugqr0AjxydjpbwxWilson HealthComment on above:Performed By: #### [id number] #### [facility] ([facility]) [address] [facility] [place], [place] [address]EYEMTCQ LYMPHOCYTES (10*3/UL) IN BLOOD BY CALCULATION0.00 10*3/uLNormal0.00UnWilson HealthComment on above:Performed By: #### [id number] #### [facility] ([facility]) [address] [facility] [address]TNOSPSS LYMPHOCYTES/100 LEUKOCYTES IN BLOOD CELLAVISION0.0 % Normal0.0-0.0UnWilson HealthComment on above:Performed By: #### [id number] #### [facility] ([facility]) [address] [facility] [place], [place] [address]SKQC GLUCOSE METER UNSOLICITED RESULTSon 11-92-2092Cwwhmda [Mass/Vol]292 mg/vFKqxo01-226PxwxfdanvzWilson HealthComment on above:Order Comment: Waived Testing in the ED is performed under the ED CLIA certificate #[id number].Result Comment: yajiyai3Mxfyjrwws By: #### [id number] ####[facility] ([facility])[address] [place], [place] [address]Gjfvlat [Mass/Vol]316 mg/mGEdle40-341UcahhoarokWilson HealthComment on above:Order Comment: Waived Testing in the ED is performed under the ED CLIA certificate #[id number].Result Comment: dciumun6Mctbqybgl By: #### [id number] #### [facility] ([facility]) [address] [place], [place] [address]Uxqvefi [Mass/Vol]176 mg/gDGxjz59-530BubacjqvcfWilson HealthComment on above:Order Comment: Waived Testing in the ED is performed under the ED CLIA certificate #[id number].Result Comment: nkurth Performed By: #### [id number] #### [facility] ([facility]) [address] [place], [place] [address]Txqnerl [Mass/Vol]175 mg/kXSwom51-167NiitbrzlhqWilson HealthComment on above:Order Comment: Waived Testing in the ED is performed under the ED CLIA certificate #[id number].Result Comment: [id number] Performed By: #### [id number] #### [facility] ([facility]) [address] [facility] [place], [place] [address]PQPDDAIG Ion 70-22-1014Vjvzohis I.cardiac [Mass/Vol]12.78 ng/mL Critically high0.00-0.04UnWilson HealthComment on above: Result Comment: Previous result verified on 04/19/20248 on specimen/case [id number] called with component Troponin I for procedure Troponin I with value 19.85 ng/mL.Performed By: #### [id number] ####[facility] ([facility])[address] [place], [place] [address]Vfkoykgf I.cardiac [Mass/Vol]15.43 ng/mLCritically high0.00-0.04UnWilson HealthComment on above:Result Comment: Previous result verified on 04/19/20242357 on specimen/case [id number] called with component Troponin I for procedure Troponin I with value 19.85 ng/mL.Performed By: #### [id number] #### [facility] ([facility]) [address] [facility] [place], [place] [address]ts 74-40-883392Xxy patient is Moderately Stable - Low risk of patient condition declining or worsening The patient's goals for the shift include find out answers The clinical goals for the shift include stable vitalsNormalUnihca houston healthcare [facility]30The patient is Moderately Stable - Low risk [...] level or baseline comfort level Outcome: Progressing .NormalUnWilson HealthAPTTon 97-11-4364GUAVADMYJ PARTIAL THROMBOPLASTIN TIME IN PPP BY COAGULATION ASSAY29.5 OhwaonaLjvppy31.0-35.0 [facility] Medical CenterComment on above:Order Comment: Baseline aPTT before initiating heparin infusion.Result Comment: Clinical significance of the APTT is questionable in the presence of heparin.Performed By: #### [id number] ####[facility] ([facility])[address] [facility], [place] [address]CKH WITH AUTO DIFFERENTIALon 36-26-0783Vrkrfhfpqhr distribution width (RBC) [Ratio]16.4 %High 11.5-15.0UnWilson HealthComment on above:Performed By: #### [id number] ####[facility] ([facility])[address] [place] [address] ERYTHROCYTE MEAN CORPUSCULAR HEMOGLOBIN CONCENTRATION (G/DL) BY ZKWQPRAHT06.7 g/dLLow32.0-35.0UnWilson HealthComment on above:Performed By: #### [id number] ####[facility] ([facility])[address] [facility], [place] [address]Ipundexhga (Bld) [Volume fraction]40.1 %Dfcgxc53.0-48.0UnWilson HealthComment on above:Performed By: #### [id number] ####[facility] ([facility])[address] [facility], [place] [address]Wdiqmgpxnm (Bld) [Mass/Vol]12.3 g/dL Uqxjyg54.0-15.0UnWilson HealthComment on above:Performed By: #### [id number] ####[facility] ([facility])[address] [place] [address] MCH (RBC) [Entitic mass]28.7 xsPhurlg43.0-33.0UnWilson HealthComment on above:Performed By: #### [id number] ####[facility] ([facility])[address] [place] [address]NXR (RBC) [Entitic vol]93.5 fLNormal 82.0-98.0UnWilson HealthComment on above:Performed By: #### [id number] ####[facility] ([facility])[address] [place] [address]TNVL (PER 100 WBCS) BY AUTOMATED COUNT0.0 %Zkzotf4HxihdrzhklWilson Health Comment on above:Performed By: #### [id number] ####[facility] ([facility])[address] [place] [address]LRACVYYTJ (10*3/UL) IN BLOOD AUTOMATED DIVHX056 10*3/mSAkodeh328-714TguxfpmmoyWilson HealthComment on above: Performed By: #### [id number] ####[facility] ([facility])[address] [place] [address]GSP (Bld) [#/Vol]4.29 10*6/uLNormal3.80-5.00UnWilson HealthComment on above:Performed By: #### [id number] ####[facility] ([facility])[address] [place] [address]XPE (Bld) [#/Vol]23.34 10*3/uLHigh4.00-10.60UnWilson HealthComment on above: Performed By: #### [id number] ####[facility] ([facility])[address] [place] [address]NRas 41-44-18[address]UYXJZAHU KINASE (U/L) IN SER/AVJZ604.0 U/LHigh 30.0-223.0UnWilson HealthComment on above:Performed By: #### [id number] #### [facility] ([facility]) [address] [place] [address]XWGYDJYMJBZHP METABOLIC PANELon 96-07-9893Duhmdxb [Mass/Vol]3.6 g/dLNormal3.5-5.7UnWilson HealthComment on above:Performed By: #### [id number] #### [facility]) [address] [place], [place] [address]XOH [Catalytic activity/Vol]107 U/KDgbe08-992JcgnlvuyjvWilson HealthComment on above:Performed By: #### [id number] #### [facility] [address] [place], [place] [address]SHP [Catalytic activity/Vol]63 U/LHigh7-52UnWilson HealthComment on above:Performed By: #### [id number] #### [facility]) [address] [place], [place] [address]Mmfpb gap [Moles/Vol]15 mmol/LNormal7-20UnWilson HealthComment on above:Performed By: #### [id number] #### [facility] [address] [place], [place] [address]FGY [Catalytic activity/Vol]77 U/GNaoq45-18TjiwhckrfrWilson HealthComment on above:Performed By: #### [id number] #### [facility]) [address] [place], [place] [address]Aemdnsdwu [Mass/Vol]1.0 mg/dLNormal0.3-1.0UnWilson HealthComment on above:Performed By: #### [id number] #### [facility] ([facility]) [address] [place], [place] [address]Czgqhkp [Mass/Vol]9.8 mg/dLNormal8.6-10.3UnWilson HealthComment on above:Performed By: #### [id number] #### [facility] ([facility]) [address] [place], [place] [address]Mlsahymr [Moles/Vol]102 mmol/WHacgmo23-833RxibfaiztmWilson HealthComment on above:Performed By: #### [id number] #### [facility] ([facility]) [address] [place], [place] [address]VM2 [Moles/Vol]21 mmol/LXtrche50-20QowosswrtwWilson HealthComment on above:Performed By: #### [id number] #### [facility] ([facility]) [address] [place], [place] [address]Kyaeinfhfk [Mass/Vol]0.90 mg/dLNormal0.60-1.20UnWilson HealthComment on above:Performed By: #### [id number] #### [facility] ([facility] [place] [address] [place], [place] [address]SFPQDGLSBB FILTRATION RATE ML/MIN/1.73 SQ M.PREDICTED 68.3 mL/min/1.73m*2Normal>60.0UnWilson HealthComment on above:Result Comment: [facility]???s estimated glomerular filtration rate (eGFR) will no [...] potential consequences that do not disproportionately affect anyone group of individuals.Performed By: #### [id number] #### [facility] ([facility]) [address] [place], [place] [address]Febthbz [Mass/Vol]273 mg/bSGvnk52-664IoaweeztzhWilson HealthComment on above:Performed By: #### [id number] #### [facility] ([facility]) [address] [place], [place] [address]Rzaguvnef [Moles/Vol]4.4 mmol/LNormal3.5-5.1UnWilson HealthComment on above:Performed By: #### [id number] #### [facility] ([facility]) [address] [place], [place] [address]Iwsdofy [Mass/Vol]6.2 g/dLNormal6.0-8.3UnWilson HealthComment on above:Performed By: #### [id number] #### [facility] ([facility]) [address] [place], [place] [address]Orqkow [Moles/Vol]134 mmol/TAyu584-928QstsbmjxitWilson HealthComment on above:Performed By: #### [id number] #### [facility] (BEAKER) [address] [place], [place] [address]Dcub nitrogen [Mass/Vol]26 mg/dLHigh7-25UnWilson HealthComment on above:Performed By: #### [id number] #### [facility] ([facility]) [address] [place], [place] [address]GSBC NITROGEN/CREATININE (MASS RATIO) IN SER/PLAS28.9 NormalUnWilson HealthComment on above:Performed By: #### [id number] #### [facility] ([facility]) [address] [place], [place] [address]LSIOUUIuy 18-82-8498NZNEOIX Attestation signed by Bhargav Rosado MD at [...] will be Toprol XL Outpatient follow-up with [place] cardiology and cardiology pharmacist for treatment with semaglutide or tirzepatide for morbid obesity, diabetes, and CAD continue current GDMT for HFrEF including Toprol-XL, Entresto, spironolactone, Farxiga Bhargav Rosado MD solar photovoltaic crew lead Interventional Cardiology [place] Cardiology Pager: [phone] Cardiology Consult Note Reason for Consult: chest pain HPI: Laura Lawosn is a 73 y.o. female with past history remarkable for primary hypertension, type 2 diabetes mellitus, mixed hyperlipidemia, coronary artery disease status post PCI to LAD, RCA on 10/2023, chronic heart failure with improved ejection fraction 45% previously 30%, who presented to [facility] after transfer from [facility] where she initially presented with left-sided chest pain, found to have elevated high-sensitivity troponin and was transferred to [facility]. During my evaluation today, patient was complaining [...] Dispense Refill Last Dose (more content not included)...Normal [facility] CenterCT ABDOMEN PELVIS W IV CONTRASTon 04-19-2024 CT ABDOMEN PELVIS W IV CONTRASTSTUDY: ABDOMEN AND PELVIS CT WITH CONTRAST HISTORY: [...] with adjacent atelectasis Electronically signed: Jorje Neumann MD.NormalUnWilson HealthHEMOGLOBIN A1Con 48-48-4204Bbmiauf [Mass/Vol]232 mg/dLNormalUniversAdams County HospitalComment on above:Performed By: #### [id number] ####[facility] (BEAKER)[address] [place], [place] [address]ZvV1q (Bld) [Mass fraction]9.7 % High4.0-6.0UnWilson HealthComment on above:Performed By: #### [id number] ####[facility] (BEAKER)[address] [place] [address] HEPATITIS PANEL, ACUTEon 58-49-8289SZKVWLFGT A VIRUS IGM AB PRESENCE IN SER/PLAS Non-ReactiveNormalNonreactiveUnWilson HealthComment on above:Performed By: #### [id number] #### [facility] ([facility]) [address] [place] [address]PMGQLSJAX B VIRUS CORE AB (PRESENCE) IN SER/PLAS BY IMM Non-ReactiveNormalNonreCleveland Clinic Hillcrest HospitalComment on above:Performed By: #### [id number] #### [facility] ([facility]) [address] [place], [place] [address]XDQULPFSL B VIRUS SURFACE AG PRESENCE IN SERUMNon-ReactiveNormal NonreCleveland Clinic Hillcrest HospitalComment on above:Performed By: #### [id number] #### [facility] ([facility]) [address] [place], [place] [address]IJMFDKZXB C VIRUS AB PRESENCE IN SERUMNon-ReactiveNoal NonreactiveMetroHealth Cleveland Heights Medical CenterComment on above:Performed By: #### [id number] #### [facility] ([facility]) [address] [place], [place] [address]BKGUM PANELon 36-11-9653FRTS/HDL2.1 mg/dLNormalUniProMedica Defiance Regional HospitalComthree rivers health hospital on above:Performed By: #### [id number] ####[facility] ([facility])[address] [place], [place] [address]Veclkpgejzw [Mass/Vol]107 mg/dLLow 120-200[facility] Medical CenterComment on above:Performed By: #### [id number] ####[facility] ([facility])[address] [place], [place] [address]Bdwdfdfxc [Mass/Vol]79 mg/qNYnevmc00-865YydygwshraMetroHealth Cleveland Heights Medical CenterComment on above:Result Comment: TRIGLYCERIDE REFERENCE RANGE: 20 YEARS AND OLDER CARDIOVASCULAR RISK LESS THAN 150 mg/dL LOW RISK 150 TO 199 mg/dL BORDERLINE RISK 200 mg/dL AND GREATER HIGH RISKPerformed By: #### [id number] ####[facility] ([facility])[address] [place], [place] [address]Mqkcrecdh [Mass/Vol]41 mg/dLNormal 0-160UnWilson HealthComment on above:Performed By: #### [id number] ####[facility] ([facility])[address] ACECONEMAUGH [facility] [place] [address]Alletkjjd [Mass/Vol]50 mg/wBSyfaxc26-65BzcbhyvqoeWilson HealthComment on above:Performed By: #### [id number] ####[facility] ([facility])[address] [place], [place] [address]WIT HDL CHOL. (LDL+VLDL)57NormalUniversAdams County HospitalComment on above:Performed By: #### [id number] ####[facility] ([facility])[address] [place], [place] [address]DEQRV VLDL-C16 mg/dLNormal0-40 [facility] CenterComment on above:Performed By: #### [id number] ####[facility] ([facility])[address] [place], [place] [address]QJXOTU DIFFERENTIALon 05-39-7617LGPRUEFPJ (10*3/UL) IN BLOOD BY CALCULATION0.05 10*3/uL Normal0.00-0.20[facility] CenterComment on above:Performed By: #### [id number] ####[facility] ([facility])[address] [place] [address] BASOPHILS/100 LEUKOCYTES IN BLOOD BY AUTOMATED COUNT0.2 %Normal0.0-1.0[facility] CenterComment on above:Performed By: #### [id number] ####[facility] ([facility])[address] [place], [place] [address]IWCHYJZRZEQ (10*3/UL) IN BLOOD BY CALCULATION0.02 10*3/uLNormal0.00-0.50UnWilson HealthComment on above:Performed By: #### [id number] ####[facility] ([facility])[address] [place], [place] [address]ZDOBCCONDLG/100 LEUKOCYTES IN BLOOD BY AUTOMATED COUNT0.1 %Normal0.0-6.0UnWilson HealthComment on above:Performed By: #### [id number] ####[facility] ([facility])[address] [place], [place] [address]HYGYKKGF GRANULOCYTES (10*3/UL) IN BLOOD BY CALCULATION0.16 10*3/uLNormal0.00-0.20UnWilson HealthComment on above: Performed By: #### [id number] ####[facility] ([facility])[address] [place], [place] [address]IMUJVEPO GRANULOCYTES/100 LEUKOCYTES IN BLOOD BY AUTOMATED COUNT0.7 %Normal0.0-1.0UnWilson HealthComment on above: Performed By: #### [id number] ####[facility] ([facility])[address] [place], [place] [address]JSPIZQKLJIX (10*3/UL) IN BLOOD BY CALCULATION1.01 10*3/uLLow 1.20-4.00UnWilson HealthComment on above:Performed By: #### [id number] ####[facility] ([facility])[address] [place] [address] LYMPHOCYTES/100 LEUKOCYTES IN BLOOD BY AUTOMATED COUNT4.3 %Low20.0-45.0 [facility] CenterComment on above:Performed By: #### [id number] ####[facility] ([facility])[address] [place], [place] [address]HVGPHFTNT (10*3/UL) IN BLOOD BY CALCUATION2.87 10*3/uLHigh0.10-1.00UnWilson HealthComment on above:Performed By: #### [id number] ####[facility] ([facility])[address] [place], [place] [address]IEIIEHBVK/100 LEUKOCYTES IN BLOOD BY AUTOMATED COUNT12.2 %High5.0-12.0UnWilson HealthComment on above:Performed By: #### [id number] ####[facility] ([facility])[address] [place], [place] [address]LHSOUSVGSBQ (10*3/UL) IN BLOOD BY BNZUAAELVVZ47.4 10*3/uLHigh 1.6-7.6UnWilson HealthComment on above:Performed By: #### [id number] ####[facility] ([facility])[address] [place] [address] NEUTROPHILS/100 LEUKOCYTES IN BLOOD BY AUTOMATED COUNT82.5 %High40.0-72.0 [facility] CenterComment on above:Performed By: #### [id number] ####[facility] ([facility])[address] [place], [place] [address]WYZOOFDNE RED BLOOD CELLS IN BLOOD BY LIGHT MICROSCOPYPresentNormalUniversAdams County HospitalComment on above:Performed By: #### [id number] ####[facility] ([facility])[address] [place], [place] [address]ABWJAR CELLS/100 LEUKOCYTES IN BLOOD0 %Yakjuc6ObcqrajuueWilson HealthComment on above:Performed By: #### [id number] ####[facility] ([facility])[address] [place], [place] [address]ELADZNZ LYMPHOCYTES (10*3/UL) IN BLOOD BY CALCULATION0.00 10*3/uLNormal0.00UnWilson HealthComment on above:Performed By: #### [id number] ####[facility] ([facility])[address] [place], [place] [address]FSJHSJM LYMPHOCYTES/100 LEUKOCYTES IN BLOOD CELLAVISION0.0 %Normal0.0-0.0UnWilson HealthComment on above:Performed By: #### [id number] ####[facility] ([facility])[address] [place], [place] [address]WDIB GLUCOSE METER UNSOLICITED RESULTS on 49-22-6410Oninuvn [Mass/Vol]266 mg/bDGjey65-615JsvxjbdepaWilson HealthComment on above:Order Comment: Waived Testing in the ED is performed under the ED CLIA certificate #[id number].Result Comment: [email or web address] By: #### [id number] ####[facility] ([facility])[address] [place] [address] Glucose [Mass/Vol]212 mg/cUHkhk98-034JgzqjbsosfWilson HealthComment on above:Order Comment: Waived Testing in the ED is performed under the ED CLIA certificate #[id number].Result Comment: [id number] By: #### [id number] #### [facility] ([facility]) [address] [place], [place] [address]Oqdhzhn [Mass/Vol]260 mg/qDHhxx89-679YswynfwqgqWilson HealthComment on above:Order Comment: Waived Testing in the ED is performed under the ED CLIA certificate #[id number].Result Comment: [email or web address] Performed By: #### [id number] ####[facility] ([facility])[address] [place], [place] [address]JEDYTUUS Ion 89-22-7402Jslpdelh I.cardiac [Mass/Vol]19.85 ng/mLCritically high0.00-0.04UnWilson HealthComment on above:Result Comment: M-PREVIOUS CRITICAL RESULT Previous result verified on 04/19/2024817 on specimen/case [id number] called with component Troponin I for procedure Troponin I with value 17.02 ng/mL. Performed By: #### [id number] #### [facility] ([facility]) [address] [place], [place] [address]Ciluiikh I.cardiac [Mass/Vol]15.61 ng/mLCritically high0.00-0.04 [facility] CenterComment on above:Result Comment: M-PREVIOUS CRITICAL RESULT Previous result verified on 04/19/2024817 on specimen/case [id number] called with component Troponin I for procedure Troponin I with value 17.02 ng/mL. Performed By: #### [id number] ####[facility] ([facility])[address] [facility] [place] [address]Jyyaaawi I.cardiac [Mass/Vol]19.98 ng/mLCritically high 0.00-0.04[facility] Medical CenterComment on above:Result Comment: M- PREVIOUS CRITICAL RESULT Previous result verified on 04/19/2024 0818 on specimen/case [id number] called with component Troponin I for procedure Troponin I with value 17.02 ng/mL. Performed By: #### [id number] ####[facility] ([facility])[address] [place], [place] [address]Fkyianpn I.cardiac [Mass/Vol]17.84 ng/mLCritically high 0.00-0.04UnWilson HealthComment on above:Result Comment: Previous result verified on 04/19/2024 0818 on specimen/case [id number] called with component Troponin I for procedure Troponin I with value 17.02 ng/mL. Performed By: #### [id number] ####[facility] ([facility])[address] [place], [place] [address]Rkbdtick I.cardiac [Mass/Vol]13.04 ng/mLCritically high 0.00-0.04UnWilson HealthComment on above:Result Comment: M- PREVIOUS CRITICAL RESULT Previous result verified on 04/19/2024 0818 on specimen/case [id number] called with component Troponin I for procedure Troponin I with value 17.02 ng/mL. Performed By: #### [id number] #### [facility] ([facility]) [address] [place], [place] [address]Bvalbaem I.cardiac [Mass/Vol]17.02 ng/mLCritically high0.00-0.04 [facility] CenterComment on above:Performed By: #### [id number] #### [facility] ([facility]) [address] [place], [place] [address]TWC4 REFLEX TO FT4on 32-04-5660ZULPVSBYGZZ (MIU/L) IN SER/PLAS BY DETECTION LIMIT <= 0.05 MIU/L0.64 mIU/LNormal0.34-5.60UnWilson HealthComment on above:Performed By: #### [id number] ####[facility] ([facility])[address] [place], [place] [address]ZKBKFHCQXB WITH REFLEX CULTUREon 25-11-1249EERBZGSQM, TOTAL PRESENCE IN URINENegativeNormalNegativeMetroHealth Cleveland Heights Medical CenterComment on above:Order Comment: Microscopics not performed on urines with negative chemical reactions unless requested on original order. Performed By: #### [id number] ####[facility] ([facility])[address] [place], [place] [address]Drwosti (U)ClearNormalClearUnWilson HealthComment on above:Order Comment: Microscopics not performed on urines with negative chemical reactions unless requested on original order.Performed By: #### [id number] ####[facility] ([facility])[address] [place] [address] Color (U)ColorlessNormalColorless, Yellow, Light-YellowMetroHealth Cleveland Heights Medical CenterComment on above:Order Comment: Microscopics not performed on urines with negative chemical reactions unless requested on original order. Performed By: #### [id number] ####[facility] ([facility])[address] [place], [place] [address]Rcimyuv (U) [Mass/Vol]mg/dLAbnormalNormalUniProMedica Defiance Regional HospitalComment on above:Order Comment: Microscopics not performed on urines with negative chemical reactions unless requested on original order. Performed By: #### [id number] ####[facility] ([facility])[address] [place], [place] [address]GMJZXRNUZG PRESENCE IN URINENegativeNormalNegativeMetroHealth Cleveland Heights Medical CenterComment on above:Order Comment: Microscopics not performed on urines with negative chemical reactions unless requested on original order.Performed By: #### [id number] ####[facility] ([facility])[address] [place], [place] [address]Fhptawh Ql (U)NegativeNormalNegativeMetroHealth Cleveland Heights Medical CenterComment on above:Order Comment: Microscopics not performed on urines with negative chemical reactions unless requested on original order. Performed By: #### [id number] ####[facility] ([facility])[address] [place], [place] [address]SCIONWZAX ESTERASE PRESENCE IN URINE BY TEST STRIPNegative NormalNegativeMetroHealth Cleveland Heights Medical CenterComment on above:Order Comment: Microscopics not performed on urines with negative chemical reactions unless requested on original order.Performed By: #### [id number] ####[facility] ([facility])[address] [place] [address]IFWVZWI PRESENCE IN URINENegative NormalNegativeUnWilson HealthComment on above:Order Comment: Microscopics not performed on urines with negative chemical reactions unless requested on original order.Performed By: #### [id number] ####[facility] ([facility])[address] [place] [address]yG (U)5.0 [pH]Normal5.0-8.0UnWilson HealthComment on above:Order Comment: Microscopics not performed on urines with negative chemical reactions unless requested on original order.Performed By: #### [id number] ####[facility] ([facility])[address] [place] [address]Cfbuitd (U) [Mass/Vol]NegativeNormalNegative [facility] CenterComment on above:Order Comment: Microscopics not performed on urines with negative chemical reactions unless requested on original order.Performed By: #### [id number] ####[facility] ([facility])[address] [place] [address]Bzbueofo gravity (U) [Rel density]1.018Normal 1.010-1.030UnWilson HealthComment on above:Order Comment: Microscopics not performed on urines with negative chemical reactions unless requested on original order.Performed By: #### [id number] ####[facility] ([facility])[address] [place], [place] [address]AKBHCRLGGPHK (MG/DL) IN URINENormal NormalNormalUniversAdams County HospitalComment on above:Order Comment: Microscopics not performed on urines with negative chemical reactions unless requested on original order.Performed By: #### [id number] ####[facility] ([facility])[address] [place] [address]Cqssxyhafq - Hematology and Cell countson 76-29-9187GxR7o (Bld) [Mass fraction]8.9 %[facility] District HospitalNo Panel Informationon 17-33-1422WGTXCedar County Memorial Hospital Lumbar spine WO and W contrast Edyta 09-99-1333Tcw[address] [address] Magnetic Resonance Report Signed Patient: LAURA LAWSON MR#: [id number] : 1950 Acct:[id number] Age/Sex: 73 / F ADM Date: 03/23/24 Loc: MRI Attending Dr: ABRAHAM CESAR Ordering Physician: ABRAHAM CESAR Date of Service: 03/23/24 Procedure(s): MR lumbar spine wo/w con Accession Number(s): [id number] cc: ABRAHAM CESAR [address] [address] Patient Name: LAURA LAWSON MRN: [id number] date: 1950 Sex: F Assigned Patient Location: MRI Current Patient Location: Accession/Order Number: [id number] Exam Date: 03/23/2024 12:50 Report Date: 03/25/2024 07:47 At the request of: ABRAHAM CESAR Procedure: MR lumbar spine wo/w con [...] stenosis detailed above Electronically authenticated by: DILLAN JOE Date: 03/25/2024 07:47 Dictated By: Dillan Joe M.D. Signed By: 03/25/24 0750 DD/ 0747 TD/TT: Quality Project Manager:TBHRadiology, Radiologist, - 03/25/2024 [place] [address] Magnetic Resonance Report Signed Patient: LAURA LAWSON MR#: [id number] : 1950 Acct:[id number] Age/Sex: 73 / F ADM Date: 03/23/24 Loc: MRI Attending Dr: ABRAHAM CESAR Ordering Physician: ABRAHAM CESAR Date of Service: 03/23/24 Procedure(s): MR lumbar spine wo/w con Accession Number(s): [id number] cc: ABRAHAM CESAR [place] [address] Patient Name: LAURA LAWSON MRN: [id number] date: 1950 Sex: F Assigned Patient Location: MRI Current Patient Location: Accession/Order Number: [id number] Exam Date: 03/23/2024 12:50 Report Date: 03/25/2024 07:47 At the request of: ABRAHAM CESAR Procedure: MR lumbar spine wo/w con [...] stenosis detailed above Electronically authenticated by: DILLAN JOE Date: 03/25/2024 07:47 Dictated By: Dillan Joe M.D. Signed By: 03/25/24 0750 DD/ 0747 TD/TT: Quality Project Manager: [facility] HospitalRadiology Study observation (narrative)[facility] Lumbar spine WO and W contrast IVOrdered By: Radiologist Radiology on 63-83-4425QSHBHermann Area District Hospital Work Phone: all CBC WITH AUTO DIFFon 04-05-1513TVJVBZYEU ABSOLUTE AUTO0.1NOMS HealthcareBasophils/100 WBC (Bld)0.6 %0.2 - 2.0 %[facility] Eosinophils/100 WBC (Bld)3.4 %0.9 - 7.0 %[facility] District HospitalErythrocyte distribution width (RBC) [Ratio]17.2 %High11.0 - 15.0 %[facility] District HospitalHematocrit (Bld) [Volume fraction]42.8 %36.0 - 48.0 %[facility] HospitalHemoglobin (Bld) [Mass/Vol] 12.9 g/dL12.0 - 16.0 g/dLHermann Area District HospitalIMMATURE GRANULOCYTES ABS AUTO0.02NOTwo Rivers Psychiatric HospitalImmature granulocytes/100 WBC (Bld)0.2 %0.0 - 0.5 %[facility] Interpretation and review of laboratory resultsAbnoSt. Clair Hospital LYMPHOCYTES ABSOLUTE AUTO1.7NOTwo Rivers Psychiatric HospitalLymphocytes/100 WBC (Bld)18.2 %Low 20.5 - 60.0 %[facility] CenterH (RBC) [Entitic mass]27.5 pg26.7 - 34.0 pgSSM Saint Mary's Health CenterHC (RBC) [Mass/Vol]30.1 g/dL29.9 - 35.2 g/dLSSM Saint Mary's Health CenterV (RBC) [Entitic vol]91.3 fL81.0 - 99.0 fLHermann Area District HospitalMONOCYTES ABSOLUTE AUTO1.0High [facility] HospitalMonocytes/100 WBC (Bld)10.2 %1.7 - 12.0 %[facility] NEUTROPHILS ABSOLUTE AUTO6.4NOTwo Rivers Psychiatric HospitalNeutrophils/100 WBC (Bld)67.4 %43.0 - 75.0 %[facility] District HospitalPlatelet mean volume (Bld) [Entitic vol]9.1 fLLow9.5 - 13.5 fLHermann Area District HospitalTBH EO #0.3NOUniversity Health Truman Medical Center BWK101PHGJUniversity Health [facility] Center RBC4.69 [facility] WBC9.5[facility] District HospitalCLINISYNCNOMS HealthcareLaboratory - Hematology and Cell countson 44-21-3765AoP5c (Bld) [Mass fraction]10.2 %[facility] HospitalNo Panel Informationon 96-20-4288Nrdhrsxjnxfxpk and review of laboratory resultsAbnormReedsburg Area Medical CenterMM TOMOSYNTHESIS SCREENING BIon 80-39-2498Ghm[address] [address] Mammography Report Signed Patient: LAURA LAWSON MR#: [id number] : 1950 Acct:[id number] Age/Sex: 73 / F ADM Date: 12/04/23 Loc: MAMMO Attending Dr: ABRAHAM CESAR Ordering Physician: ABRAHAM CESAR Results: Date of Service: 12/04/23 Follow Up: Procedure(s): MM tomosynthesis screening BI Accession Number(s): [id number] cc: CLEMENTE CESAREL Patient Name: LAURA LAWSON MR#: [id number] : 1950 Exam Date: 12/04/2023 Ordering Doctor: DR ABRAHAM CESAR M.D. RADIOLOGY REPORT PROCEDURE: MM TOMOSYNTHESIS SCREENING BI COMPARISON: MG MAMM SCREEN 3D YANETH CAD, 01/10/2021. MG MAMM SCREEN 3D YANETH CAD, 11/06/2022. INDICATIONS: Screening for malignant neoplasm Calculator Name NCI Breast Cancer Risk Assessment Tool 5 Year Breast Cancer Risk 1.90% Lifetime Breast Cancer Risk 5.40% Personal Breast Cancer No Personal Ovarian Cancer No Treatments None Family Cancers None LOCATION: [facility] BREAST COMPOSITION: There are scattered areas [...] PALPABLE LUMP SHOULD BE BIOPSIED. Dictated by: Dillan Joe MD on 12/04/2023 at 15:40 Approved by: Dillan Joe MD on 12/04/2023 at 15:43 Dictated By: Dillan Joe M.D. Signed By: 12/04/23 1545 DD/ 1544 TD/TT: Quality Project Manager:TBHRadiology, RadiologistMD - 12/04/[address] [address] Mammography Report Signed Patient: LAURA LAWSON MR#: [id number] : 1950 Acct:[id number] Age/Sex: 73 / F ADM Date: 12/04/23 Loc: MAMMO Attending Dr: ABRAHAM CESAR Ordering Physician: ABRAHAM CESAR Results: Date of Service: 12/04/23 Follow Up: Procedure(s): MM tomosynthesis screening BI Accession Number(s): [id number] cc: MELBAABRAHAM Patient Name: LAURA LAWSON MR#: [id number] : 1950 Exam Date: 12/04/2023 Ordering Doctor: DR ABRAHAM CESAR M.D. RADIOLOGY REPORT PROCEDURE: MM TOMOSYNTHESIS SCREENING BI COMPARISON: MG MAMM SCREEN 3D YANETH CAD, 01/10/2021. MG MAMM SCREEN 3D YANETH CAD, 11/06/2022. INDICATIONS: Screening for malignant neoplasm Calculator Name NCI Breast Cancer Risk Assessment Tool 5 Year Breast Cancer Risk 1.90% Lifetime Breast Cancer Risk 5.40% Personal Breast Cancer No Personal Ovarian Cancer No Treatments None Family Cancers None LOCATION: [facility] BREAST COMPOSITION: There are scattered areas [...] PALPABLE LUMP SHOULD BE BIOPSIED. Dictated by: Dillan Joe MD on 12/04/2023 at 15:40 Approved by: Dillan Joe MD on 12/04/2023 at 15:43 Dictated By: Dillan Joe M.D. Signed By: 12/04/23 1545 DD/ 1544 TD/TT: Quality Project Manager: REYES HealthcareRadiology Study observation (narrative)[facility] Healthcare TOMOSYNTHESIS SCREENING BIOrdered By: Radiologist Radiology on 97-94-1377[employer] Work Phone: ITPon [phone], [place] [address] Cardiac Rehab Report Signed Patient: LAURA LAWSON MR#: [id number] : 1950 Acct:[id number] Age/Sex: 72 / F ADM Date: 10/23/23 Loc: CR Attending Dr: NIRAJ SAN APRN Ordering Physician: NIRAJ SAN APRN Date of Service: 10/23/23 Procedure(s): ITP Accession Number(s): [id number] cc: [facility] Test Date: 2023-10-23 Pat Name: LAURA LAWSON Department: Room: - Gender: Female [employer] 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 Signed By: 10/23/23202910/23/232029 DD/ 142 TD/TT: Quality Project Manager: REYES HealthcareRadiology Study observation (narrative)REYES HealthcareITPOrdered By: Radiologist Radiology on 92-85-3911SJSG [facility] Work Phone: card ECHO LIMITED STUDYon [phone], [place] [address] Cardiology Report Signed Patient: LAURA LAWSON MR#: [id number] : 1950 Acct:[id number] Age/Sex: 72 / F ADM Date: 08/14/23 Loc: CARD Attending Dr: NIRAJ SAN APRN Ordering Physician: NIRAJ SAN APRN Date of Service: 08/14/23 Procedure(s): CA echo limited Accession Number(s): [id number] cc: ABRAHAM CESAR ; NIRAJ SAN APRN Patient Name: LAURA LAWSON MR#: [id number] : 1950 Exam Date: 08/14/2023 Ordering Doctor: NIRAJ SAN CNP ECHOCARDIOGRAM REPORT PROCEDURE: CA ECHO LIMITED [...] Pressure: 33.07 ml, 33.07 ml Dictated by: Rudy Zendejas M.D. on 08/14/2023 at 16:57 Approved by: Rudy Zendejas M.D. on 08/14/2023 at 17:01 Dictated By: RUDY ZENDEJAS Signed By: 08/14/231702 DD/ 00 TD/TT: Quality Project Manager:TBHRadiology, Radiologist, MD - 08/14/2023 [place] [address] Cardiology Report Signed Patient: LAURA LAWSON MR#: [id number] : 1950 Acct:[id number] Age/Sex: 72 / F ADM Date: 08/14/23 Loc: CARD Attending Dr: NIRAJ SAN APRN Ordering Physician: NIRAJ SAN APRN Date of Service: 08/14/23 Procedure(s): CA echo limited Accession Number(s): [id number] cc: ABRAHAM CESAR ; NIRAJ SAN APRN Patient Name: LAURA LAWSON MR#: [id number] : 1950 Exam Date: 08/14/2023 Ordering Doctor: NIRAJ SAN [facility] ECHOCARDIOGRAM REPORT PROCEDURE: CA ECHO LIMITED INDICATIONS: [...] Pressure: 33.07 ml, 33.07 ml Dictated by: Rudy Zendejas M.D. on 08/14/2023 at 16:57 Approved by: Rudy Zendejas M.D. on 08/14/2023 at 17:01 Dictated By: RUDY ZENDEJAS Signed By: 08/14/23 170 DD/ 1701 TD/TT: Quality Project Manager: REYES HealthcareRadiology Study observation (narrative)[facility] HealthcareCARD ECHO LIMITED STUDYOrdered By: Radiologist Radiology on 63-06-2729ZMGZ [facility] Work Phone: ca ECHO DOPPLER COMPLETEon [phone] [address] Cardiology Report Signed Patient: LAURA LAWSON MR#: [id number] : 1950 Acct:[id number] Age/Sex: 72 / F ADM Date: 07/23/23 Loc: CARD Attending Dr: NIRAJ SAN APRN Ordering Physician: NIRAJ SAN APRN Date of Service: 07/23/23 Procedure(s): CA echo doppler complete Accession Number(s): [id number] cc: ABRAHAM CESAR ; NIRAJ SAN APRN Patient Name: LAURA LAWSON MR#: [id number] : 1950 Exam Date: 07/23/2023 Ordering Doctor: NIRAJ SAN [employer] DR[employer] ECHOCARDIOGRAM REPORT PROCEDURE: CA ECHO DOPPLER COMPLETE [...] 3.17 cm Aortic Valve AoV Area (Peak Radha): 1.25 cm2, 1.25 cm2 AoV Area (VTI): [...] mm[Hg] Mean Velocity: 0.67 m/s, 0.70 m/s Pea (more content not included)...TBHRadiology, Radiologist, - 07/23/2023 [place] [address] Cardiology Report Signed Patient: LAURA LAWSON MR#: [id number] : 1950 Acct:[id number] Age/Sex: 72 / F ADM Date: 07/23/23 Loc: CARD Attending Dr: NIRAJ SAN APRN Ordering Physician: NIRAJ SAN APRN Date of Service: 07/23/23 Procedure(s): CA echo doppler complete Accession Number(s): [id number] cc: ABRAHAM CESAR ; NIRAJ SAN APRN Patient Name: LAURA LAWSON MR#: [id number] : 1950 Exam Date: 07/23/2023 Ordering Doctor: NIRAJ SAN CNP ECHOCARDIOGRAM REPORT PROCEDURE: CA ECHO DOPPLER [...] 3.17 cm Aortic Valve AoV Area (Peak Radha): 1.25 cm2, 1.25 cm2 AoV Area (VTI): [...] Pressure: 50.67 ml, 50.67 ml Dictated by: Rudy Zendejas M.D. on 07/23/2023 at 19:46 Approved by: Rudy Zendejas M.D. on 07/23/2023 at 19:56 Dictated By: RUDY ZENDEJAS Signed By: 07/23/231957 DD/ 56 TD/TT: Quality Project Manager: [facility] HospitalRadiology Study observation (narrative)[facility] ECHO DOPPLER COMPLETEOrdered By: Radiologist Radiology on 40-18-5397[employer] Work Phone: XR CHEST 2Von [phone] [address] XRay Report Signed Patient: LAURA LAWSON MR#: [id number] : 1950 Acct:[id number] Age/Sex: 72 / F ADM Date: 07/01/23 Loc: RAD Attending Dr: ABRAHAM CESAR Ordering Physician: ABRAHAM CESAR Date of Service: 07/01/23 Procedure(s): XR chest 2V Accession Number(s): [id number] cc: ABRAHAM CESAR [place] [id number] Patient Name: LAURA LAWSON MRN: [facility]:[id number] date: 1950 Sex: F Assigned Patient Location: RAD Current Patient Location: RAD Accession/Order Number: [id number] Exam Date: 07/01/2023 15:34 Report Date: 07/01/2023 16:02 At the request of: ABRAHAM CESAR Procedure: XR chest 2V EXAM: XR [...] 16:02 Dictated By: Geremias Roberts M.D. Signed By: 07/01/23 1604 DD/ 1602 TD/TT: Quality Project Manager:TBHRadiology, Radiologist, - 07/01/2023 [place] [address] XRay Report Signed Patient: LAURA LAWSON MR#: [id number] : 1950 Acct:[id number] Age/Sex: 72 / F ADM Date: 07/01/23 Loc: RAD Attending Dr: ABRAHAM CESAR Ordering Physician: ABRAHAM CESAR Date of Service: 07/01/23 Procedure(s): XR chest 2V Accession Number(s): [id number] cc: ABRAHAM CESAR [place] [address] Patient Name: LAURA LAWSON MRN: [facility]:[id number] date: 1950 Sex: F Assigned Patient Location: [facility] Current Patient Location: [facility] Accession/Order Number: [id number] Exam Date: 07/01/2023 15:34 Report Date: 07/01/2023 16:02 At the request of: ABRAHAM CESAR Procedure: XR chest 2V EXAM: XR [...] 16:02 Dictated By: Geremias Roberts M.D. Signed By: 07/01/23 1604 DD/ 1602 TD/TT: Quality Project Manager: [facility] HealthcareRadiology Study observation (narrative)[facility] HealthcareXR CHEST 2V Ordered By: Radiologist Radiology on 88-92-1588QL[facility]Y [facility] Work Phone: MG MAMM SCREEN 3D YANETH CADon [phone] MAMM SCREEN 3D YANETH CADPatient: LAURA LAWSON Exam Date: 11/06/2022 : 1950 Gender:F Ordering : DR ABRAHAM CESAR M.D. Admission #: [id number] Family : Order #: [id number] CLICK HERE TO VIEW EXAM RADIOLOGY REPORT [...] Treatments None Family Cancers None LOCATION: [facility] BREAST COMPOSITION: Scattered areas fibroglandular density. [...] by: Henry Villanueva M.D. on 11/06/2022 at 16:56[facility] Hospital CompanyECHOCARDIO M/2D COMPLETEon 32-62-5302WDFADLMJFS M/2D COMPLETEPatient: LAURA LAWSON. Exam Date: 05/17/2022 : 1950 Gender:F Ordering : DR ABRAHAM CESAR M.D. Admission #: [id number] Family : DR RUDY ZENDEJAS M.D. Order #: [id number] CLICK HERE TO VIEW EXAM ECHOCARDIOGRAM REPORT [...] by: Rudy Zendejas M.D. on 05/17/2022 at 18:42NormalThMarymount Hospital AUTO DIFFon 94-37-4534XXDL #0.0 103/ulNormal0.0-0.1The [facility] City HospitalComment on above:Performed By: #### CBC #### [facility] [address] [place] [address] Dr. Hieu HorvathBasophils/100 WBC (Bld)0.5 %Normal0.2-2.0[facility] Comment on above:Performed By: #### CBC #### [facility] [address] [place] [address] [address] Hieu Michel #0.2 103/ulNormal0.0-0.7The [facility] HospitalComment on above: Performed By: #### CBC #### [facility] [address] [place] [address] Dr. Hieu Kingosinophils/100 WBC (Bld)2.5 %Normal0.9-7.0[facility] Comment on above:Performed By: #### CBC #### [facility] [address] [place] [address] [address] Hieu Kingrythrocyte distribution width (RBC) [Ratio]14.0 %Meltxb58.0-15.0 [facility] HospitalComment on above:Performed By: #### CBC #### [facility] [address] [place] [address] Dr. Hieu HorvathHematocrit (Bld) [Volume fraction]35.5 %Critically low36.0-48.0 The [facility] HospitalComment on above:Performed By: #### CBC #### [facility] [address] [address] [address] Hieu HorvathHemoglobin (Bld) [Mass/Vol]11.5 g/dLCritically low12.0-16.0The [facility] HospitalComthree rivers health hospital on above:Performed By: #### CBC #### [facility] [address] [place] [address] Dr. Hieu Vora #0.02 10e3/ulNormal0.00-0.03The [facility] HospitalComthree rivers health hospital on above:Performed By: #### CBC #### [facility] [address] [place] [address] Dr. Hieu Vora %0.2 %Normal0.0-0.5The [facility] HospitalComthree rivers health hospital on above: Performed By: #### CBC #### [facility] [address] [place] [address] Dr. Hieu Ahn #1.6 103/ulNormal1.2-3.8The [facility] HospitalComthree rivers health hospital on above:Performed By: #### CBC #### [facility] [address] [place] [address] Dr. Hieu Duartehocytes/100 WBC (Bld)19.2 %Critically low20.5-60.0The [facility] on above:Performed By: #### CBC #### [facility] [address] [place] [address] Dr. Hieu BonillaUAL DIFF REQNONormalThe [facility] HospitalComment on above: Performed By: #### CBC #### [facility] [address] [place] [address] Dr. Hieu Nino (RBC) [Entitic mass]29.9 vbTkgwat94.7-34.0The [facility] HospitalComment on above:Performed By: #### CBC #### [facility] [address] [place] [address] Dr. Hieu Whiteside (RBC) [Mass/Vol]32.4 g/pWIvfapv26.9-35.2The [facility] HospitalComment on above:Performed By: #### CBC #### [facility] [address] [address] [address] Hieu Ho (RBC) [Entitic vol]92.4 bDIjhuyj47.0-99.0The [facility] HospitalComment on above:Performed By: #### CBC #### [facility] [address] [place] [address] Dr. Hieu Patton #1.1 103/ulCritically high0.3-0.8[facility] Comment on above:Performed By: #### CBC #### [facility] [address] [place] [address] Dr. Hieu Sepulvedaocytes/100 WBC (Bld)12.4 %Critically high1.7-12.0The [facility] HospitalComment on above:Performed By: #### CBC #### [facility] [address] [place] [address] Dr. Hieu Edge #5.6 103/ulNormal1.4-6.5The [facility] HospitalComment on above:Performed By: #### CBC #### [facility] [address] [place] [address] Dr. Hieu Lopezutrophils/100 WBC (Bld)65.2 %Vxehpm39.0-75.0The [facility] HospitalComment on above:Performed By: #### CBC #### [facility] [address] [place] [address] Dr. Hieu Dempseylet mean volume (Bld) [Entitic vol]8.9 fLCritically low 9.5-13.5The [facility] HospitalComment on above:Performed By: #### CBC #### [facility] [address] [place] [address] Dr. Hieu HartT342 103/nyUgjdke555-387Yny [facility] HospitalComment on above: Performed By: #### CBC #### [facility] [address] [place] [address] Dr. Hieu HorvathRBC3.84 106/ulCritically low4.20-5.40The [facility] HospitalComment on above:Performed By: #### CBC #### [facility] [address] [place] [address] Dr. Hieu HorvathWBC8.5 103/ulNormal4.0-11.0The [facility] HospitalComment on above: Performed By: #### CBC #### [facility] [address] [place] [address] Dr. Hieu HorvathCUURE BLOODon 85-48-0748Tccokivoaeq examination of blood, cultureCulture Observations: NO GROWTH AT 5 DAYS.NormalThe [facility] HospitalComment on above:Performed By: #### BLDCX2 #### [facility] [address] [place] [address] Dr. Hieu HorvathPerformed By: #### BLDCX1 #### [facility] [address] [place] [address] Dr. Hieu HorvathLACTATE/LACTIC ACIDon 79-32-4970Zpbtzgm [Moles/Vol]1.8 mmol/L Normal0.4-1.9The [facility] HospitalComment on above:Performed By: #### LACT #### [facility] [address] [place] [address] Dr. Hieu HorvathPROLoi CHEM 8 (BAS METB)on 41-90-7223Tcrsq gap [Moles/Vol]10.3 mmol/LNormalThe [facility] HospitalComment on above:Performed By: #### BMP #### [facility] [address] [place] [address] Dr. Hieu HorvathCalcium [Mass/Vol]9.8 mg/dLNormal8.5-10.1[facility] Comment on above:Performed By: #### BMP #### [facility] [address] [place] [address] Dr. Hieu HoravthChloride [Moles/Vol]95 mmol/LCritically cun51-961Hex [facility] HospitalComment on above:Performed By: #### BMP #### [facility] [address] [place] [address] Dr. Hieu HorvathCO2 [Moles/Vol]31.4 mmol/IUbkzgh94.0-32.0[facility] Comment on above:Performed By: #### BMP #### [facility] [address] [address] [address] Hieu HorvathCreatinine [Mass/Vol]1.13 mg/dLCritically high0.55-1.02The [facility] HospitalComment on above:Performed By: #### BMP #### [facility] [address] [address] [address] Hieu KingGFR-AF XRWYJRPS11 mL/min/1.21s6Yysvezwsoq low>=60The [facility] HospitalComment on above:Performed By: #### BMP #### [facility] [address] [place] [address] Dr. Hieu KingGFR-NON AF JKZTZNKD87 mL/min/1.58f2Xrqgyseexi low>=60The [facility] HospitalComment on above:Performed By: #### BMP #### [facility] [address] [place] [address] Dr. Hieu HorvathGlucose [Mass/Vol]370 mg/dLCritically lxjo28-362Pzj [facility] HospitalComment on above:Performed By: #### BMP #### [facility] [address] [place] [address] Dr. Hieu HorvathPotassium [Moles/Vol]3.7 mmol/LNormal3.5-5.1[facility] Comment on above:Performed By: #### BMP #### [facility] [address] [address] [address] Hieu HorvathSodium [Moles/Vol]133 mmol/LCritically asx874-356Tyq [facility] HospitalComment on above:Performed By: #### BMP #### [facility] [address] [address] [address] Hieu HorvathUrea nitrogen [Mass/Vol]29.0 mg/dLCritically high7.0-18.0The [facility] HospitalComment on above:Performed By: #### BMP #### [facility] [address] [place] [address] Dr. Hieu HorvathUrea nitrogen/Creatinine [Mass ratio]25.7 mg/mgRegency Hospital CompanyComment on above:Performed By: #### BMP #### [facility] [address] [address] [address] Hieu Moise JAKE DOP LEG RTon 17-49-7787ZG JAKE DOP LEG RTUS JAKE DOP LEG RT CLINICAL HISTORY: Localized [...] Electronically authenticated by: RUSSELL YATES Date: 2022-05-14 17:04Reg[facility] Hospital CompanyGlucose Glucometer (BldC) [Mass/Vol]Ordered By: Chidi Bowen on 36-31-9695Dujouay [Mass/Vol]187 mg/dLPaulding County HospitalComment on above:Random Glucose Reference Range is dependent on time and content of last meal. Glucose of more than 200 mg/dL in a nonstressed, ambulatory subject supports the diagnosis of Diabetes Mellitus.No Panel InformationOrdered By: Chidi Bowen on 63-43-2126Cypalnp Glucose CommentGlu2: cleaned meterPaulding County HospitalNo Panel InformationOrdered By: Chidi Bowen on 04-41-5749Ybshuob Glucose #[address]/[facility] HospitalGlucose mean value [Mass/volume] in Blood Estimated from glycated hemoglobinOrdered By: Tuyet Burks on 37-64-2287Vcwvjmw glucose Estimated from glycated hemoglobin (Bld) [Mass/Vol]203 mg/dLPaulding County HospitalHemoglobin A1c percentageOrdered By: Tuyet Burks on 60-60-4719SpW3d (Bld) [Mass fraction]8.7 %4.3-5.6F[facility] Healthcare System GlenbeighComment on above:Increased risk for diabetes: 5.7 - 6.4diabetes: >6.4glycemic control for adults with diabetes: <7.0Albumin [Mass/volume] in Serum or PlasmaOrdered By: Chidi Bowen on 22-75-3237Smrcrvt [Mass/Vol]2.9 g/dL3.2-5.5F[facility] Healthcare System GlenbeighBasophils Auto (Bld) [#/Vol]Ordered By: Chidi Bowen on 03-23-2022 Basophils (Bld) [#/Vol]0.0 10*3/uL0.0-0.2[facility] Basophils/100 WBC Auto (Bld)Ordered By: Chidi Bowen on 35-52-2438Iqtemewmj/100 WBC (Bld)0.4 %.Paulding County HospitalCreatinine and Glomerular filtration rate.predicted panel (S/P/Bld)Ordered By: Chidi Bowen on 03-23-2022 Creatinine [Mass/Vol]0.97 mg/dL0.44-1.03[facility] Eosinophils Auto (Bld) [#/Vol]Ordered By: Chidi Bowen on 71-42-2952Pbuimithvyo (Bld) [#/Vol]0.1 10*3/uL0.0-0.45Paulding County HospitalEosinophils/100 WBC Auto (Bld)Ordered By: Chidi Bowen on 07-25-5337Abjfsfoaajc/100 WBC (Bld) 1.1 %.Paulding County HospitalErythrocyte distribution width Auto (RBC) [Ratio]Ordered By: Chidi Bowen on 98-63-2263Euhfvermzoz distribution width (RBC) [Ratio]14.2 %11.9-15.3F[facility] Healthcare System GlenbeighEstimated glomerular filtration rate (GFR) non- AmericanOrdered By: Chidi Bowen on 97-30-0832BER/1.73 sq M.predicted among non-blacks MDRD (S/P/Bld) [Vol rate/Area]57 mL/MinPaulding County HospitalGlobulin Calc (S) [Mass/Vol] Ordered By: Chidi Bowen on 81-02-9181Jhbdrnib (S) [Mass/Vol]2.7 g/dLPaulding County HospitalHematocrit Auto (Bld) [Volume fraction]Ordered By: Chidi Bowen on 22-12-8873Whwrkrzybf (Bld) [Volume fraction]33.0 %34.0-46.4F[facility] Healthcare System GlenbeighHemoglobin [Mass/volume] in BloodOrdered By: Chidi Bowen on 42-61-0357Oavcievkue (Bld) [Mass/Vol]10.9 g/dL11.8-15.4[facility] GlenbeighLaboratory - Hematology and Cell countsOrdered By: Chidi Bowen on 81-75-5464Sbmyoisry RBC/100 WBC (Bld) [Ratio]0.1 %0-0.5F[facility] System GlenbeighLeukocytes [#/volume] in Blood by Automated countOrdered By: Chidi Bowen on 72-80-3091ZWV (Bld) [#/Vol]12.0 10*3/uL4.5-11.0Paulding County HospitalLymphocytes Auto (Bld) [#/Vol]Ordered By: Chidi Bowen on 36-91-6105Bxacuqporay (Bld) [#/Vol]1.8 10*3/uL1.00-4.8Paulding County HospitalLymphocytes/100 WBC Auto (Bld)Ordered By: Chidi Bowen on 90-84-8886Jcnucpfvvwp/100 WBC (Bld)15.0 %.[facility] Auto (RBC) [Entitic mass]Ordered By: Chidi Bowen on 60-53-3902MOR (RBC) [Entitic mass]30.3 pg24.7-34.3FAshtabula County Medical CenterHC Auto (RBC) [Mass/Vol]Ordered By: Chidi Bowen on 24-62-5981XUFO (RBC) [Mass/Vol]33.2 g/dL 32.0-35.0Paulding County HospitalMCV Auto (RBC) [Entitic vol]Ordered By: Chidi Bowen on 03-50-3552TTA (RBC) [Entitic vol]91.4 yJ52-475VshktpkzhPaulding County HospitalMonocytes Auto (Bld) [#/Vol]Ordered By: Chidi Bowen on 32-34-6515Ayygjvvvm (Bld) [#/Vol]1.2 10*3/uL0.0-0.8Paul[facility] County HospitalMonocytes/100 WBC Auto (Bld)Ordered By: Chidi Bowen on 03-23-2022 Monocytes/100 WBC (Bld)9.8 %.Paul[facility] County HospitalNeutrophils Auto (Bld) [#/Vol]Ordered By: Chidi Bowen on 04-51-4800Bsouytutbyg (Bld) [#/Vol]8.9 10*3/uL1.8-7.7F[facility] Healthcare System GlenbeighNeutrophils/100 WBC Auto (Bld) Ordered By: Chidi Bowen on 46-52-0041Saylvixhqta/100 WBC (Bld)73.7 %.Paul[facility] County HospitalNo Panel InformationOrdered By: Chidi Bowen on 34-51-2283Jfvzlyqxj GFR ()> 60 mL/MinPaulding County HospitalComment on above:GFR estimated reference range: According to KDOQI guidelines, <60 ml/min/1.73m2 is sufficient todiagnose a patient with chronic kidney disease.Pharmacy Creatinine Clearance (Chem67.19Paulding County HospitalPlatelet mean volume Auto (Bld) [Entitic vol]Ordered By: Chidi Bowen on 53-53-6216Jemuozts mean volume (Bld) [Entitic vol]7.3 fL6.3-10.7 [facility] County HospitalPlatelets Auto (Bld) [#/Vol]Ordered By: Chidi Bowen on 43-39-4907Jfdgkotjl (Bld) [#/Vol]309 10*3/kZ268-888IkqgtycuuPaulding County HospitalProtein [Mass/volume] in Serum or PlasmaOrdered By: Chidi Bowen on 19-35-2039Bznfptj [Mass/Vol]5.6 g/dL6.1-7.9[facility] RBC Auto (Bld) [#/Vol]Ordered By: Chidi Bowen on 01-35-4077IIA (Bld) [#/Vol] 3.61 10*6/uL3.60-5.00[facility] Medical Centererum or plasma alanine aminotransferase measurement without P-5'-P (enzymatic activiOrdered By: Chidi Bowen on 35-19-6132OJC No additional P-5'-P [Catalytic activity/Vol]28 U/L10-60 [facility] Centererum or plasma albumin/globulin mass ratio Ordered By: Chidi Bowen on 54-20-4629Igbinyd/Globulin [Mass ratio]1.1 {ratio} [facility] Centererum or plasma alkaline phosphatase measurement (enzymatic activity/volume)Ordered By: Chidi Bowen on 37-32-8965FXP [Catalytic activity/Vol]57 U/I04-22QbfmvjacmUniversity Hospitals Cleveland Medical Centererum or plasma anion gap determinationOrdered By: Chidi Bowen on 51-86-3254Xmaut gap [Moles/Vol]10.9 mmol/L6.0-15.0[facility] Centererum or plasma aspartate aminotransferase measurement (enzymatic activity/volume)Ordered By: Chidi Bowen on 07-73-5400VTK [Catalytic activity/Vol]26 U/H94-97VmqgyzyfmUniversity Hospitals Cleveland Medical Centererum or plasma calcium measurement (mass/volume)Ordered By: Chidi Bowen on 90-57-7800Exfpaya [Mass/Vol]10.0 mg/dL8.2-10.2FACMC Healthcare Systemerum or plasma chloride measurement (moles/volume) Ordered By: Chidi Bowen on 65-49-3416Kmvvehkf [Moles/Vol]100 mmol/L95-114 [facility] Centererum or plasma glucose measurement (mass/volume)Ordered By: Chidi Bowen on 92-62-9398Sxvnvfu [Mass/Vol]101 mg/dL 70-100Paulding County HospitalComment on above:ADA recommended reference rangeRandom Glucose Reference Range is dependent on time and content of last meal. Glucose of more than 200 mg/dL in a nonstressed, ambulatory subject supports the diagnosisof Diabetes Mellitus.Serum or plasma potassium measurement (moles/volume)Ordered By: Chidi Bowen on 55-09-9695Befbuzxkx [Moles/Vol]3.6 mmol/L3.5-5.1FACMC Healthcare Systemerum or plasma prealbumin measurement (mass/volume)Ordered By: Chidi Bowen on 03-23-2022 Prealbumin [Mass/Vol]16.4 mg/dL18.0-38.0[facility] Centererum or plasma sodium measurement (moles/volume)Ordered By: Chidi Bowen on 63-06-2702Xkyihl [Moles/Vol]137 mmol/U682-568JcowejqhxPaulding County Hospital Serum or plasma total bilirubin measurement (mass/volume)Ordered By: Chidi Bowen on 56-65-3733Muaiqlrfh [Mass/Vol]0.6 mg/dL0.3-1.2FACMC Healthcare Systemerum or plasma total carbon dioxide measurement (moles/volume) Ordered By: Chidi Bowen on 57-47-1035OQ4 [Moles/Vol]29.7 mmol/L22.0-30.0 [facility] Centererum or plasma urea nitrogen measurement (mass/volume)Ordered By: Chidi Bowen on 13-75-9511Ajkg nitrogen [Mass/Vol]46 mg/dL9-Paul[facility] County HospitalGlucose Glucometer (BldC) [Mass/Vol] Ordered By: Abner Roa on 52-05-7450Ylumnoj [Mass/Vol]183 mg/dLPaulding County HospitalComment on above:Random Glucose Reference Range is dependent on time and content of last meal. Glucose of more than 200 mg/dL in a nonstressed, ambulatory subject supports the diagnosis of Diabetes Mellitus.No Panel InformationOrdered By: Abner Roa on 25-92-5838Ugxchmq Glucose Comment Glu2: cleaned meterPaulding County HospitalCOVID-19 Positive/Negative Ordered By: Abner Roa on 77-73-6399KGSK-CoV-2 (COVID-19) N gene GUS+probe Ql (Resp)NegativeNegativePaulding County HospitalComment on above:Testing for SARS-CoV-2 by RT-PCRThis test was developed and its performance characteristics determined by [employer] ([employer]) and validated at the [facility]. This test has not been [...] unless the authorization is terminated or revoked sooner.No Panel Information Ordered By: Abner Roa on 33-86-0600Lnvlrnb Glucose #[address]/rn [facility] County HospitalCOVID-19 Positive/NegativeOrdered By: Abner Roa on 94-94-8921TOBI-CoV-2 (COVID-19) N gene GUS+probe Ql (Resp)Negative NegativePaulding County HospitalComment on above:Testing for SARS-CoV-2 by RT-PCRThis test was developed and its performance characteristics determined by [employer] ([employer]) and validated at the [facility]. This test has not been [...] unless the authorization is terminated or revoked sooner.Basophils Auto (Bld) [#/Vol]Ordered By: Abner Roa on 40-84-9316Hhysdkjna (Bld) [#/Vol]0.0 10*3/uL0.0-0.2[facility]ighBasophils/100 WBC Auto (Bld)Ordered By: Abner Roa on 03-05-2022 Basophils/100 WBC (Bld)0.4 %.[facility] HospitalBlood hemoglobin measurement (mass/volume)Ordered By: Abner Roa on 52-85-7431Nodydbjlib (Bld) [Mass/Vol]11.8 g/dL11.8-15.4[facility]ighBlood leukocytes automated count (number/volume)Ordered By: Abner Roa on 09-94-1623UQS (Bld) [#/Vol]9.2 10*3/uL4.5-11.0[facility] HospitalCreatinine and Glomerular filtration rate.predicted panel (S/P/Bld)Ordered By: Abner Roa on 29-14-7127Xtrmfnvbyl [Mass/Vol]0.93 mg/dL0.44-1.03[facility] HospitalEosinophils Auto (Bld) [#/Vol]Ordered By: Abner Roa on 03-05-2022 Eosinophils (Bld) [#/Vol]0.1 10*3/uL0.0-0.45[facility] Eosinophils/100 WBC Auto (Bld)Ordered By: Abner Roa on 03-05-2022 Eosinophils/100 WBC (Bld)1.4 %.[facility] HospitalErythrocyte distribution width Auto (RBC) [Ratio]Ordered By: Abner Roa on 03-05-2022 Erythrocyte distribution width (RBC) [Ratio]14.3 %11.9-15.3[facility]ighEstimated glomerular filtration rate (GFR) non- Ordered By: Abner Roa on 60-06-1152QPK/1.73 sq M.predicted among non-blacks MDRD (S/P/Bld) [Vol rate/Area]60 mL/MinPaulding County Hospital Hematocrit Auto (Bld) [Volume fraction]Ordered By: Abner Roa on 03-05-2022 Hematocrit (Bld) [Volume fraction]35.6 %34.0-46.4[facility]ighLaboratory - Hematology and Cell countsOrdered By: Abner Roa on 32-31-0029Zhqrciiil RBC/100 WBC (Bld) [Ratio]0.0 %0-0.5[facility]beighLymphocytes Auto (Bld) [#/Vol]Ordered By: Abner Roa on 03-05-2022 Lymphocytes (Bld) [#/Vol]1.4 10*3/uL1.00-4.8[facility] Lymphocytes/100 WBC Auto (Bld)Ordered By: Abner Roa on 03-05-2022 Lymphocytes/100 WBC (Bld)15.4 %.[facility] HospitalH Auto (RBC) [Entitic mass]Ordered By: Abner Roa on 15-02-3716CHG (RBC) [Entitic mass]30.4 pg24.7-34.3[facility]ighMCHC Auto (RBC) [Mass/Vol]Ordered By: Abner Roa on 32-67-4521RCWU (RBC) [Mass/Vol]33.2 g/dL32.0-35.0[facility] HospitalMCV Auto (RBC) [Entitic vol]Ordered By: Abner Roa on 75-85-1122VYO (RBC) [Entitic vol]91.7 yL34-314XgcbdmcdbPaulding County Hospital Monocytes Auto (Bld) [#/Vol]Ordered By: Abner Roa on 80-68-0244Mxauiikwg (Bld) [#/Vol]0.8 10*3/uL0.0-0.8[facility] HospitalMonocytes/100 WBC Auto (Bld)Ordered By: Abner Roa on 03-68-3446Idpkcqlom/100 WBC (Bld)9.2 %.[facility] HospitalNeutrophils Auto (Bld) [#/Vol]Ordered By: Abner Roa on 54-82-8972Udtdrqvnhex (Bld) [#/Vol]6.8 10*3/uL1.8-7.7[facility]ighNeutrophils/100 WBC Auto (Bld)Ordered By: Abenr Roa on 03-05-2022 Neutrophils/100 WBC (Bld)73.6 %.[facility] HospitalNo Panel InformationOrdered By: Abner Roa on 57-06-1440Jhpcynptr GFR ()> 60 mL/MinPaulding County HospitalComment on above:GFR estimated reference range: According to KDOQI guidelines, <60 ml/min/1.73m2 is sufficient todiagnose a patient with chronic kidney disease.Pharmacy Creatinine Clearance (ChemN/[facility] HospitalPlatelet mean volume Auto (Bld) [Entitic vol]Ordered By: Abner Roa on 99-59-6743Ihyfulgq mean volume (Bld) [Entitic vol]7.5 fL6.3-10.7[facility]ighPlatelets Auto (Bld) [#/Vol]Ordered By: Abner Roa on 73-74-2133Dpirgobqp (Bld) [#/Vol]285 10*3/uL 150-450[facility] HospitalRBC Auto (Bld) [#/Vol]Ordered By: Abner Roa on 10-29-6994YZF (Bld) [#/Vol]3.88 10*6/uL3.60-5.00[facility] Centererum or plasma anion gap determinationOrdered By: Abner Roa on 37-32-1193Jozei gap [Moles/Vol]14.8 mmol/L6.0-15.0[facility] Centererum or plasma calcium measurement (mass/volume)Ordered By: Abner Roa on 12-23-1606Fhlpwqd [Mass/Vol]10.1 mg/dL8.2-10.2[facility] Serum or plasma chloride measurement (moles/volume)Ordered By: Abner Roa on 71-15-5245Dshlzjtx [Moles/Vol]99 mmol/C75-526OffzdrpepPaulding County Hospital Serum or plasma glucose measurement (mass/volume)Ordered By: Abner Roa on 86-71-9476Gvirhlr [Mass/Vol]206 mg/aC62-331PjfphhlzrPaulding County Hospital Comment on above:ADA recommended reference rangeRandom Glucose Reference Range is dependent on time and content of last meal. Glucose of more than 200 mg/dL in a nonstressed, ambulatory subject supports the diagnosisof Diabetes Mellitus. Serum or plasma potassium measurement (moles/volume)Ordered By: Abner Roa on 15-07-7861Xvyvjnfqw [Moles/Vol]4.5 mmol/L3.5-5.1[facility] Systemerum or plasma sodium measurement (moles/volume)Ordered By: Abner Roa on 04-28-0356Jdvfot [Moles/Vol]136 mmol/X224-104QimiwmrpaPaulding County Hospital Serum or plasma total carbon dioxide measurement (moles/volume)Ordered By: Abner Roa on 12-87-3428PJ6 [Moles/Vol]26.7 mmol/L22.0-30.0[facility] Centererum or plasma urea nitrogen measurement (mass/volume)Ordered By: Abner Roa on 76-33-8381Orwn nitrogen [Mass/Vol]20 mg/dL-[facility] Vital Signs Date TimeVital SignValuePerforming FfoakuqarJilqfugg00-25-1952 08:00-0400Body jydelyllvbs85.1 [degF]Abraham Cesar II Work Phone: 1(096)[address] [place], [place] 0576210-25-2025 08:00-0400 Diastolic blood pqkgrill32 mm[Hg]Abraham Cesar II Work Phone: 1(364)[address] [place], [place] 0576210-25-2025 08:00-0400 Heart rate58 /minDdengel Cesar II Work Phone: 1(419)[address] [place], [place] 0576210-25-2025 08:00-0400 Respiratory rate16 /Cristianel Cesar II Work Phone: 1(736)[address] [place], [place] 0576210-25-2025 08:00-0400 SaO2% (BldA) [Mass fraction]98 %Abraham Cesar II Work Phone: 1(419)[address] [place], [place] [address]576210-25-2025 08:00-0400 Systolic blood nidxczcw590 mm[Hg]Abraham Cesar II Work Phone: 1(614)[address] [place], [place] 0576210-25-2025 05:35-0400 Body .6 kgDadarellel Cesar II Work Phone: 1(419)[address] [place], [place] 0576210-22-2025 13:19-0400 Body .48 cmDadarellel Cesar II Work Phone: 1(419)[address] [place], [place] 0576210-21-2025 14:36-0400 Body dirspl071.48 cmDadarellel Cesar II Work Phone: 1(419)[address] [place], [place] [address]576210-21-2025 14:36-0400 Body dmdzmpurnhe39.3 [degF]Abraham Cesar II Work Phone: 1(293)[address] [place], [place] [address]576210-21-2025 14:36-0400 Body kbyhxx77.33 kgDaniel Cesar II Work Phone: 1(784)[address]10-21-2025 14:36-0400 Diastolic blood asfmzjyi20 mm[Hg]Abraham Cesar II Work Phone: 1(594)[address]10-21-2025 14:36-0400 Heart rate61 /minDaniel Cesar II Work Phone: 1(419)[address]10-21-2025 14:36-0400 Respiratory rate20 /minDaniel Cesar II Work Phone: 1(296)[address]10-21-2025 14:36-0400 SaO2% (BldA) [Mass fraction]95 %Abraham Cesar II Work Phone: 1(477)[address]10-21-2025 14:36-0400 Systolic blood pdpdovxs724 mm[Hg]Abraham Cesar II Work Phone: 1(348)[address]10-17-2025 20:58-0400 Diastolic blood xicltlfo59 mm[Hg]Abraham Cesar II Work Phone: 1(599)[address]10-17-2025 20:58-0400 Heart rate60 /minDaniel Cesar II Work Phone: 1(302)[address] [place], [place] [address]576210-17-2025 20:58-0400 Respiratory rate20 /minDaniel Cesar II Work Phone: 1(123)[facility] [place], [place] [address]2810-17-2025 20:58-0400 SaO2% (BldA) [Mass fraction]98 %Abraham Cesar II Work Phone: 1(205)[address]10-17-2025 20:58-0400 Systolic blood axnifiyx306 mm[Hg]Abraham Cesar II Work Phone: 1(229)[address] [place], [place] [address]576210-17-2025 14:09-0400 Body iknkyp030.48 cmDaniel Ceasr II Work Phone: 1(679)[address] [place], [place] [address]6210-17-2025 14:09-0400 Body vupwcj647.9 kgDaniel Cesar II Work Phone: 1(150)[address]36 [address]10-17-2025 14:08-0400 Body bxhrgaegpjo89.7 [degF]Abraham Cesar II Work Phone: 1(419)[address] [place], [place] [address]576210-08-2025 11:10-0400 Body peunei671.48 cmDamelissa Cesar II Work Phone: 1(419)[address] [place], [place] [address]576210-08-2025 11:10-0400 Body mass index (BMI) [Ratio]40 kg/l3Nqzqpl Cesar II Work Phone: 1(419)[address] [place], [place] [address]576210-08-2025 11:10-0400 Body yrnbyscvxuj39.2 [degF]Abraham Cesar II Work Phone: 1(419)[address] [place], [place] [address]576210-08-2025 11:10-0400 Body zdgyas43.33 kgDamelissa Cesar II Work Phone: 1(419)[address] [place], [place] [address]576210-08-2025 11:10-0400 Diastolic blood mm[Hg]Abraham Cesar II Work Phone: 1(419)[address] [place], [place] [address]576210-08-2025 11:10-0400 Heart rate62 /Jorge Cesar II Work Phone: 1(419)[address] [place], [place] [address]576210-08-2025 11:10-0400 Respiratory rate16 /Jorge Cesar II Work Phone: 1(419)[address] [place], [place] [address]6210-08-2025 11:10-0400 SaO2% (BldA) [Mass fraction]98 %Abraham Cesar II Work Phone: 1(419)[address] [place], [place] [address]6210-08-2025 11:10-0400 Systolic blood thsjinno801 mm[Hg]Abraham Cesar II Work Phone: 1(419)[address] [place], [place] [address]6210-07-2025 11:55-0400 Body ojapil345.48 cmDamelissa Cesar II Work Phone: 1(419)[address] [place], [place] [address]6210-07-2025 11:55-0400 Body mass index (BMI) [Ratio]38.4 kg/l9Pakdtb Cesar II Work Phone: 1(274)[address] [place], [place] [address]6210-07-2025 11:55-0400 Body .25 kgDamelissa Cesar II Work Phone: 1(618)[address] [place], [place] [address]6210-07-2025 11:18-0400 Body xmavmthdagp19.4 [degF]Abraham Cesar II Work Phone: 1(401)[address] [place], [place] [address]6210-07-2025 11:18-0400 Diastolic blood ccplsnve81 mm[Hg]Abraham Cesar II Work Phone: 1(419)[address] [place], [place] [address]6210-07-2025 11:18-0400 Heart rate60 /Jorge Cesar II Work Phone: 1(042)[address] [place], [place] [address]10-07-2025 11:18-0400 Respiratory rate18 /Jorge Cesar II Work Phone: 1(164)[address] [place], [place] [address]6210-07-2025 11:18-0400 Systolic blood plckzhcu982 mm[Hg]Abraham Cesar II Work Phone: 1(604)[address] [place], [place] 0576209-24-2025 09:28-0400 Body iwdjud356.5 cmAbraham Cesar MD Work Phone: 1(831)[facility] [place], [place] [address]Puskzuubzp80-10-3735 09:28-0400Body mass index (BMI) [Ratio]40.06 kg/i3YvbkyyAbraham Cesar MD Work Phone: 1(509)[facility] [place], [place] [address]Vdfazcztjv16-21-7535 09:28-0400Body mbeqop29.34 kgAbraham Cesar MD Work Phone: [phone] [place], [place] [address]Fbfqjgjwmm73-08-0246 09:28-0400Diastolic blood jmkvwvuw27 mm[Hg]Abraham Cesar MD Work Phone: 1([phone] [place], [place] [address]Utyqimclhh36-47-6100 09:28-0400Heart rate85 /min Abraham Cesar MD Work Phone: 1(375)[facility]-2849[facility] HospitalRakvvouptv83-87-5252 09:28-4206WxZ7% (BldA) [Mass fraction]100 %Abraham Cesar MD Work Phone: [place] [address]Zwgmsyjogb10-18-3761 09:28-0400Systolic blood spkgedee062 mm[Hg]Abraham Cesar MD Work Phone: [facility] HospitalEewzsdesee79-27-0423 10:51-0400Body tlhruv679.5 cmAbraham Cesar MD Work Phone: [facility] HospitalUdqxztqivl35-53-2103 10:51-0400Body mass index (BMI) [Ratio]38.04 kg/m0YdmtxaAbraham Cesar MD Work Phone: [facility] HospitalZblvluhefo79-86-4661 10:51-0400Body mlicvu92.35 kgAbraham Cesar MD Work Phone: [facility] HospitalVmmduenuqz63-13-9889 10:51-0400Diastolic blood otsveqmq00 mm[Hg]Abraham Cesar MD Work Phone: 1(704)[facility]-2875[facility] HospitalXdctjqnacw51-34-6436 10:51-0400Heart rate60 /min Abraham Cesar MD Work Phone: [phone] HospitalYlwxbotvtt30-61-5991 10:51-6401OsW2% (BldA) [Mass fraction]98 %Abrhaam Cesar MD Work Phone: [facility] HospitalFzfjcaczqb79-05-1169 10:51-0400Systolic blood ptiicamc247 mm[Hg]Abraham Cesar MD Work Phone: [facility] HospitalYdeeirboym94-24-1340 10:42-0400Body xhywcj252.5 cmJerryen Hemmer PA Work Phone: [facility] HospitalIjinjallcq60-39-9411 10:42-0400Body mass index (BMI) [Ratio]37.99 kg/u7Lwcaj Hemmer PA Work Phone: [facility] HospitalPgrjbntbuw26-37-1439 10:42-0400Body icdbdw60.44 kgJerryen Hemmer PA Work Phone: [phone] HospitalIeymnupvoq99-66-1635 10:42-0400Diastolic blood wgresrgo81 mm[Hg]Nati Hemmer PA Work Phone: [facility] HospitalGuhbgyruol14-75-2106 10:42-0400Heart rate78 /min Nati Virk PA Work Phone: [facility] HospitalWyrfymcmjp02-53-5839 10:42-0400Respiratory rate16 /minNati Virk PA Work Phone: [facility] HospitalCgmzosbgwo01-18-9748 10:42-4210SzH4% (BldA) [Mass fraction]96 %Nati Virk PA Work Phone: [facility] HospitalYnjpdoyppu03-61-8752 10:42-0400Systolic blood zvvlchcu492 mm[Hg]Nati Virk PA Work Phone: [facility] HospitalInrijzvvzd95-37-5888 09:27-0400Body emrhyi711.5 cmAbraham Cesar MD Work Phone: [facility] HospitalFbadluojwd15-33-4802 09:27-0400Body mass index (BMI) [Ratio]37.38 kg/g0MbzrjaAbraham Cesar MD Work Phone: [facility] HospitalZjvpwfdruf83-28-7503 09:27-0400Body eijjnq58.89 kgAbraham Cesar MD Work Phone: [facility] HospitalIdytzknpzk06-33-8533 09:27-0400Diastolic blood hikxnkhd77 mm[Hg]Abraham Cesar MD Work Phone: [facility] HospitalVnacsurvou48-07-9485 09:27-0400Heart rate83 /min Abraham Cesar MD Work Phone: [facility] HospitalJshmfrxnxe23-31-1219 09:27-1813ScP5% (BldA) [Mass fraction]96 %Abraham Cesar MD Work Phone: [facility] HospitalSahrdbtbxo14-87-8937 09:27-0400Systolic blood nxriosbg644 mm[Hg]Abraham Cesar MD Work Phone: [facility] HospitalSayzeccnov93-05-6287 13:23-0400Body .5 cmNarinder MARTINEZM Work Phone: [facility] HospitalClxrccaubj86-26-8905 13:23-0400Body mass index (BMI) [Ratio]34.49 kg/s1AdtxqslhNarinder Meredith DPM Work Phone: [facility] HospitalXodlpqseaf64-42-0751 13:23-0400Body .64 kgMeghanashley Meredith DPM Work Phone: [facility] HospitalYbubtrocfh14-52-0768 13:23-0400Respiratory rate18 /minMeghanashley Greyson DPM Work Phone: [facility] HospitalRuojjqdtcw65-19-0462 10:54-0400Body bkngup435.48 cmDadarellel Cesar II Work Phone: 1(948)493-[address] [place], [place] [address]2806-23-2025 10:54-0400 Body mass index (BMI) [Ratio]38.4 kg/a3Uxpklh Cesar II Work Phone: 1(637)[address]06-23-2025 10:54-0400 Body anlvhi29.25 kgDaniel Cesar II Work Phone: 1(327)[address]06-23-2025 10:35-0400 Body criffppdqsb37.2 [degF]Abraham Cesar II Work Phone: 1(267)[address]06-23-2025 10:35-0400 Diastolic blood esmqqbhi03 mm[Hg]Abraham Cesar II Work Phone: 1(394)[address]06-23-2025 10:35-0400 Heart rate78 /minDaniel Cesar II Work Phone: 1(561)[address]06-23-2025 10:35-0400 Respiratory rate18 /minDaniel Cesar II Work Phone: 1(846)972-[address] [place], [place] 0882806-23-2025 10:35-0400 Systolic blood sjofadnr051 mm[Hg]Abraham Cesar II Work Phone: 1(283)[address]05-15-2025 11:53-0400 Body .7 kgDaniel Cesar II Work Phone: 1(338)[address]05-07-2025 12:12-0400 Body bjanus546.5 cmAbraham Cesar MD Work Phone: [facility] HospitalHohcjrdqym17-70-3629 12:12-0400Body mass index (BMI) [Ratio]34.49 kg/n6ZxxwreAbraham Cesar MD Work Phone: 1(414)[address] [place], [place] 4402405-07-2025 12:12-0400Body exspxv54.64 kgAbraham Cesar MD Work Phone: 1(419)[address] [place], [place] 4402405-07-2025 12:12-0400Diastolic blood jpnbpdpe16 mm[Hg]Abraham Cesar MD Work Phone: 1(419)[address] [place], [place] 4402405-07-2025 12:12-0400Heart rate84 /min Abraham Cesar MD Work Phone: 1(419)[address] [place], [place] 4402405-07-2025 12:12-0400Respiratory rate16 /Jorge Cesar MD Work Phone: 1(419)[address] [place], [place] 4402405-07-2025 12:12-3215GoD0% (BldA) [Mass fraction]96 %Abraham Cesar MD Work Phone: 1(392)[address] [place], [place] 4402405-07-2025 12:12-0400Systolic blood dcjegmrz454 mm[Hg]Abraham Cesar MD Work Phone: 1(236)[address] [place], [place] 4402405-05-2025 10:35-0400Body isfzed798.48 cmDamelissa Cesar II Work Phone: 1(353)[address] [place], [place] 0576205-05-2025 10:35-0400 Body mass index (BMI) [Ratio]38.4 kg/d3TvfzkwAbraham Cesar II Work Phone: 1(971)[address] [place], [place] 0576205-05-2025 10:35-0400 Body nqmdyc03.25 kgAbraham Cesar II Work Phone: 1(419)[address] [place], [place] 0576205-05-2025 10:26-0400 Body ybuilzqejtw10.2 [degF]Abraham Cesar II Work Phone: 1(866)[address] [place], [place] 0576205-05-2025 10:26-0400 Diastolic blood otpdaote35 mm[Hg]Abraham Cesar II Work Phone: 1(674)[address] [place], [place] 0576205-05-2025 10:26-0400 Heart rate62 /Jorge Cesar II Work Phone: [facility]05-05-2025 10:26-0400 Respiratory rate18 /Jorge Cesar II Work Phone: [facility]05-05-2025 10:26-0400 Systolic blood milnjrja910 mm[Hg]Abraham Cesar II Work Phone: [facility]04-15-2025 10:50-0400 Body gxtabm210.5 cmTulioverona Meredith DPM Work Phone: [facility] HospitalMctwgzryek61-70-8131 10:50-0400Body mass index (BMI) [Ratio]37.92 kg/l4Tqsdxcewverona Meredith DPM Work Phone: [facility] HospitalWvkkduwifh41-83-8912 10:50-0400Body kvdiam23.25 kgTulioverona Meredith DPM Work Phone: [facility] HospitalKxnzcodftw19-21-8042 10:50-0400Respiratory rate18 /Oliverio Meredith DPM Work Phone: [facility] HospitalWnaiorhsnm59-58-1144 13:16-0400Body ucetoy428.5 cmNati Hemmer PA Work Phone: [facility] HospitalKtgpdgglhv18-94-2902 13:16-0400Body mass index (BMI) [Ratio]38.03 kg/h2Dzsok Hemmer PA Work Phone: [facility] HospitalZeuanxqtca49-41-8062 13:16-0400Body kvycpc01.53 kgKaren Hemmer PA Work Phone: [facility] HospitalQtilfmzqys40-38-6166 13:16-0400Diastolic blood gvsopsfv82 mm[Hg]Nati Hemmer PA Work Phone: [facility] HospitalUsibrcjhst35-28-3057 13:16-0400Heart rate52 /min Nati Hemmer PA Work Phone: [facility] HospitalBsowsyqprq63-69-3200 13:16-0400Respiratory rate16 /minKaren Hemmer PA Work Phone: 1(419)483-[address] [place], [place] [address]Vvevqekzzk36-43-0105 13:16-4321FgO9% (BldA) [Mass fraction]99 %Nati BABB Work Phone: 1(012)[facility]756[facility] HospitalPfukduqbiu06-32-4127 13:16-0400Systolic blood elzwpwwl317 mm[Hg]Nati BABB Work Phone: 1(814)[facility]1226[facility] HospitalJgdwmhmooj70-53-8048 11:24-0400Body wpduaa107.5 cmAbraham Cesar MD Work Phone: 1(035)[facility] [place], [place] [address]Zmpxlyinod12-16-7424 11:24-0400Body mass index (BMI) [Ratio]37.02 kg/v7YwotiyAbraham Cesar MD Work Phone: 1(752)[facility] [place], [place] [address]Vzazlzjwaw29-57-7349 11:24-0400Body .99 kgAbraham Cesar MD Work Phone: 1(181)[facility] [place], [place] [address]Cfwgiypmoz36-21-9455 11:24-0400Diastolic blood mqzkmoel14 mm[Hg]Abraham Cesar MD Work Phone: 1(939)[facility] [place], [place] [address]Wgbltocyro39-17-5794 11:24-0400Heart rate68 /min Abraham Cesar MD Work Phone: 1(324)[facility] [place], [place] [address]Lfsdpmozkd52-45-8231 11:24-8598QgU9% (BldA) [Mass fraction]99 %Abraham Cesar MD Work Phone: 1(092)[facility]8179[facility] HospitalEgztjvfnud28-15-1779 11:24-0400Systolic blood digflhbw343 mm[Hg]Abraham Cesar MD Work Phone: 1(468)[facility] [place], [place] [address]Fzfbjuzsck34-84-3822 15:00-0500Diastolic blood mm[Hg]Luigi Nan [facility]01-31-2025 15:00-0500Heart rate77 /minSandeep Nan [facility]01-31-2025 15:00-0500 Hourly RoundingSandeep Nan [facility]01-31-2025 15:00-0500Mean blood mmyjlrpj43 mm[Hg]Luigi Nan [address] [place], [place] 9221001-31-2025 15:00-0500 Promise to ReturnSandeep Nan [address] [place], [place] 9221001-31-2025 15:00-0500 Respiratory rate16 /minSandeep Nan [address] [place], [place] 6221601-31-2025 15:00-6854GdG6% (BldA) [Mass fraction]94 %Luigi Nan [address] [place], [place] 6221601-31-2025 15:00-0500 Systolic blood murhxbir776 mm[Hg]Luigi Nan [address] [place], [place] 6221601-31-2025 14:00-0500Body dgobnficcxy14.42 [degF]Luigi Nan [address] [place], [place] 6221601-31-2025 14:00-0500 Diastolic blood vosoessi06 mm[Hg]Luigi Nan [address] [place], [place] 6221601-31-2025 14:00-0500Heart rate80 /minSandeep Nan [address] [place], [place] 9221001-31-2025 14:00-0500 Hourly RoundingSandeep Nan [address] [place], [place] 9221001-31-2025 14:00-0500Mean blood mm[Hg]Luigi Ann [address] [place], [place] 9221001-31-2025 14:00-0500 Promise to ReturnSandeep Nan [address] [place], [place] 9221001-31-2025 14:00-0500 Respiratory rate19 /minSandeep Nan [address] [place], [place] 9221001-31-2025 14:00-0500 Systolic blood vqnraufm213 mm[Hg]Luigi Nan [address] [place], [place] 6221601-31-2025 13:00-0500 Diastolic blood ysiopjoo56 mm[Hg]Luigi Nan [address] [place], [place] 6221601-31-2025 13:00-0500Heart rate73 /minSandeep Nan [address] [place], [place] 6221601-31-2025 13:00-0500 Hourly RoundingSandeep Nan [address] [place], [place] 6221601-31-2025 13:00-0500Mean blood yhkzimth88 mm[Hg]Luigi Nan [address] [place], [place] 6221601-31-2025 13:00-0500 Promise to ReturnSandeep Nan [address] [place], [place] 6221601-31-2025 13:00-0500 Respiratory rate11 /minSandeep Nan [address] [place], [place] 6221601-31-2025 13:00-0500 Systolic blood aflrqjlj27 mm[Hg]Luigi Nan [address] [place], [place] 6221601-31-2025 08:50-0500Heart rate70 /minSandeep Nan [address] [place], [place] 6221601-31-2025 08:00-0500Body vozrnkshjcx15.06 [degF]Luigi Nan [address] [place], [place] [address]01-30-2025 09:40-0500Heart rate63 /minSandeep Nan [address] [place], [place] 6221601-29-2025 19:00-0500 Diastolic Blood Pressure Qvlndxcc09 mm[Hg]Luigi Nan [address] [place], [place] 6[address]1601-29-2025 19:00-0500Mean blood hiszqqci75 mm[Hg]Luigi Nan [address] [place], [place] [address]1601-29-2025 19:00-0500 Systolic blood eyfmwlag076 mm[Hg]Luigi Nan [address] [place], [place] [address]01-29-2025 18:26-0500 Diastolic Blood Pressure Teltqhur12 mm[Hg]Luigi Nan [address] [place], [place] [address]01-29-2025 18:26-0500Mean blood xmiskeix71 mm[Hg]Luigi Nan [address] [place], [place] [address]01-29-2025 18:26-0500 Systolic blood etvozvnb29 mm[Hg]Luigi Nan [address] [place], [place] [address]01-29-2025 18:15-0500 Diastolic Blood Pressure Nbplatqi84 mm[Hg]Luigi Nan [address] [place], [place] [address]01-29-2025 18:15-0500Mean blood mm[Hg]Luigi Nan [address] [place], [place] 6[address]01-29-2025 18:15-0500 Systolic blood kciiazxc712 mm[Hg]Luigi Nan [address] [place], [place] 6[address]01-29-2025 15:45-0500 Respiratory rate18 /minSandeep Nan [address] [place], [place] 6221601-29-2025 15:30-0500 Respiratory rate18 /minSandeep Nan [address] [place], [place] 6[address]1601-29-2025 15:15-0500 Respiratory rate18 /minSandeep Nan [address] [place], [place] 6221601-29-2025 14:53-0500Heart rate85 /minSandeep Nan [address] [place], [place] 6221612-11-2024 11:08-0500 Diastolic blood mm[Hg]Abraham Cesar II Work Phone: [facility]12-11-2024 11:08-0500 Heart rate64 /minDaniel Cesar II Work Phone: 1([phone])761-[address] [place], [place] [address]882812-11-2024 11:08-0500 Respiratory rate16 /minDaniel Cesar II Work Phone: 1([phone] [place], [place] [address]882812-11-2024 11:08-0500 SaO2% (BldA) [Mass fraction]94 %Abraham Cesar II Work Phone: [phone] [place], [place] [address]882812-11-2024 11:08-0500 Systolic blood ynfbenyc666 mm[Hg]Abraham Cesar II Work Phone: 1([phone])250-[address] [place], [place] [address]12-11-2024 10:29-0500 Inhaled oxygen flow rate4 L/Cristianel Cesar II Work Phone: [phone]12-11-2024 09:43-0500 Body eptunz036.94 cmDaniel Cesar II Work Phone: 1(461)856-[address] [place], [place] [address]882812-11-2024 09:43-0500 Body siouxy86.33 kgDaniel Cesar II Work Phone: 1([phone])871-[address] [place], [place] [address]882812-09-2024 10:10-0500 Body aevaws93.97 kgDaniel Cesar II Work Phone: [phone] [place] 0882812-09-2024 10:10-0500 Diastolic blood kfzcedxy75 mm[Hg]Abraham Cesar II Work Phone: 1(917)399-[address] [place], [place] 0882812-09-2024 10:10-0500 Heart rate70 /minDaniel Cesar II Work Phone: 1(902)229-[address] [place], [place] 0882812-09-2024 10:10-0500 SaO2% (BldA) [Mass fraction]98 %Abraham Cesar II Work Phone: 1(336)960-[address] [place], [place] 0882812-09-2024 10:10-0500 Systolic blood hmcossfb053 mm[Hg]Abraham Cesar II Work Phone: 1(829)018-[address] [place], [place] 0882811-07-2024 16:01-0500 Body .8 cmTulioverona Meredith DPM Work Phone: [facility] HospitalOmqtuyxoug70-01-9972 16:01-0500Body mass index (BMI) [Ratio]42.48 kg/f3Acvctumeverona Meredith DPM Work Phone: [facility] HospitalIpvfkwmkna28-48-9251 16:01-0500Body sxthve438.05 kgTulioverona Meredith DPM Work Phone: [facility] HospitalOnxrugymyk32-36-0270 16:01-0500Diastolic blood qnmteubo88 mm[Hg]Narinder Meredith DPM Work Phone: [facility] HospitalOcxrehxovd48-85-3340 16:01-0500Heart rate82 /min Narinder Meredith DPM Work Phone: [facility] HospitalDfnfibcnza77-97-2616 16:01-0500Systolic blood hrngqeov729 mm[Hg]Narinder Meredith DPM Work Phone: [facility] HospitalQoicwwqiat09-11-4419 11:27-0400Body neprlp272.56 [facility]10[facility]20[facility] 11:27-0400Body mass index (BMI) [Ratio]41.4 kg/s9RtxypjjzxPaulding County Hospital10-31-2024 11:27-0400Body sjutru748.54 kgPaulding County Hospital10-25-2024 11:01-0400Body height 158.8 cmAbraham Cesar MD Work Phone: [facility] HospitalFsqifimtqy82-44-4772 11:01-0400Body mass index (BMI) [Ratio]42.48 kg/h8NygqkjAbraham Cesar MD Work Phone: [facility] HospitalHqwxprhghb61-66-0153 11:01-0400Body yfaxrw706.05 Falguni Cesar MD Work Phone: [facility] HospitalNginelkxkw13-09-3440 11:01-0400Diastolic blood vovzebbx47 mm[Hg]Abraham Cesar MD Work Phone: [facility] HospitalJflithsezy22-37-4047 11:01-0400Heart rate68 /min Abraham Cesar MD Work Phone: [facility] HospitalMqkcomtdsl06-53-8602 11:01-6343TkK6% (BldA) [Mass fraction]98 %Abraham Cesar MD Work Phone: [facility] HospitalOcfcrczovi58-62-0694 11:01-0400Systolic blood avjlbyir840 mm[Hg]Abraham Cesar MD Work Phone: [facility] HospitalFknghhmuus27-33-4670 14:08-0400Diastolic blood cxjhcuij38 mm[Hg]Nati Hemmer PA Work Phone: [facility] HospitalIxvagjpzig38-26-7312 14:08-0400Systolic blood bmvqmges425 mm[Hg]Nati Hemmer PA Work Phone: 1(400)[facility]6746[facility] HospitalNlhvzlcycz61-41-2069 13:50-0400Body sicapr021.8 cmKaren Hemmer PA Work Phone: [phone] HospitalOezpkztkqk56-10-9231 13:50-0400Body mass index (BMI) [Ratio]42.55 kg/y4Wehbd Hemmer PA Work Phone: [facility] HospitalJcjzmqumdy42-27-2919 13:50-0400Body atwjwn655.23 kgKaren Hemmer PA Work Phone: [phone] HospitalZkqinygcnx63-02-6513 13:50-0400Heart rate64 /min Nati Hemmer PA Work Phone: [facility] HospitalRwvtbbgvxx28-98-7275 13:50-0400Respiratory rate16 /minKaren Hemmer PA Work Phone: [facility] HospitalEezwwnjqpv07-47-0810 13:50-0191FlP5% (BldA) [Mass fraction]98 %Nati Hemmer PA Work Phone: [facility] HospitalMmxxbgqprd98-34-7835 09:15-0400Diastolic blood wbdyplge23 mm[Hg]Abraham Cesar MD Work Phone: [facility] HospitalBlypitnvzi46-99-2723 09:15-0400Heart rate50 /min Abraham Cesar MD Work Phone: 1(489)885-[address] [place], [place] [address]Qaxnacljdc16-52-9031 09:15-0400Respiratory rate17 /minDerendira Cesar MD Work Phone: [facility] HospitalAficehqgum57-15-4676 09:15-2340TjB9% (BldA) [Mass fraction]98 %Abraham Cesar MD Work Phone: [facility] HospitalHnuchwuzrh56-36-4251 09:15-0400Systolic blood oawflicj154 mm[Hg]Abraham Cesar MD Work Phone: [facility] HospitalVgjxwpzvke64-33-7692 11:31-0400Body .8 cmAbraham Cesar MD Work Phone: [facility] HospitalZvpmtfuydc61-00-8030 11:31-0400Body mass index (BMI) [Ratio]41.94 kg/x7JqdzimAbraham Cesar MD Work Phone: [facility] HospitalNeotvvifrh32-10-7193 11:31-0400Body .69 kgAbraham Cesar MD Work Phone: [facility] HospitalAmoruksrdj68-25-2492 11:31-0400Diastolic blood lqjzisvn38 mm[Hg]Abraham Cesar MD Work Phone: [facility] HospitalMajjddnlue49-94-2603 11:31-0400Heart rate82 /min Abraham Cesar MD Work Phone: [facility] HospitalKribjapgmu06-19-9483 11:31-7819JzX3% (BldA) [Mass fraction]96 %Abraham Cesar MD Work Phone: [facility] HospitalMrgbsorvln09-05-2410 11:31-0400Systolic blood bqpbilsw921 mm[Hg]Abraham Cesar MD Work Phone: [facility] HospitalNavojhmxcs72-63-1348 15:16-0400Body wsweyp983.8 cmNarinder Meredith DPM Work Phone: [facility] HospitalKkdwxrkffe57-91-9658 15:16-0400Body mass index (BMI) [Ratio]42.3 kg/h5ZpipwmwlNarinder Meredith DPM Work Phone: [facility] HospitalDmwqchufuk34-87-3397 15:16-0400Body .59 kgNarinder Meredith DPM Work Phone: [facility] HospitalRtfqsjhdmm92-70-6283 15:16-0400Diastolic blood mtrpzowo24 mm[Hg]Narinder Meredith DPM Work Phone: [facility] HospitalShrpaowojr17-40-0138 15:16-0400Heart rate89 /min Narinder Meredith DPM Work Phone: [facility] HospitalNcjtuvjzgc45-09-5865 15:16-0400Systolic blood cakmjhxl616 mm[Hg]Narinder Meredith DPM Work Phone: [facility] HospitalNtsyksckwl96-82-5721 10:56-0400Diastolic blood lkmylvbb58 mm[Hg]May Jason Rashedy [facility] Wsibtuoats34-06-5153 10:56-0400Systolic blood ycmqudau354 mm[Hg]May El Rashedy [facility] Rankpsqqkd72-07-2035 11:12-0400Body ujhuhw444.1 cmCasey العلي MD Work Phone: 1(091)293-[facility]07-08-2024 11:12-0400Body mass index (BMI) [Ratio]41 kg/m2Casey العلي MD Work Phone: [facility]07-08-2024 11:12-0400Body hlmezl437.51 kgCasey العلي MD Work Phone: [facility]07-08-2024 11:12-0400Diastolic blood xykardlp85 mm[Hg]Casey العلي MD Work Phone: [facility]07-08-2024 11:12-0400Heart rate 86 /minCasey العلي MD Work Phone: [facility]07-08-2024 11:12-0400Systolic blood apuwccuz438 mm[Hg]Casey العلي MD Work Phone: [facility]05-16-2024 10:33-0400Body .56 cmII Abraham Cesar Work Phone: [facility]05-16-2024 10:33-0400 Body mass index (BMI) [Ratio]38.6 kg/m2II Abraham Cesar Work Phone: [facility]05-16-2024 10:33-0400 Body fewsmm484 kgII Abraham Cesar Work Phone: [facility]03-12-2024 11:27-0400 Body .5 Gianna Uribe MD Work Phone: [phone])[address]03-12-2024 11:27-0400Body mass index (BMI) [Ratio]41.15 kg/m2Robbi Uribe MD Work Phone: 1(121)[address] [place], [place] 4677903-12-2024 11:27-0400Body .06 Bayron Uribe MD Work Phone: 1(246)[address] [place], [place] 4677903-12-2024 11:27-0400Diastolic blood uacahonk62 mm[Hg]Robbi Uribe MD Work Phone: 1(600)840-[address] [place], [place] 9743803-12-2024 11:27-0400Heart rate 63 /minRobbi Uribe MD Work Phone: 1(125)[address] [place], [place] 4677903-12-2024 11:27-0400Systolic blood ysbsxura956 mm[Hg]Robbi Uribe MD Work Phone: 1(124)421-[address] [place], [place] 9743802-12-2024 10:260500Body ibznav228.8 cmAbraham Cesar MD Work Phone: [facility] HospitalMuepqtakdx09-65-5023 10:26-0500Body mass index (BMI) [Ratio]41.22 kg/m2KqsfikAbraham Cesar MD Work Phone: [facility] HospitalEwlbadviuu65-38-0336 10:26-0500Body uyeatc717.87 kgAbraham Cesar MD Work Phone: [facility] HospitalIorrekimcn19-45-3487 10:26-0500Diastolic blood cwkjbida16 mm[Hg]Abraham Cesar MD Work Phone: [facility] HospitalCkoacufofo26-73-5472 10:26050Heart rate66 /min Abraham Cesar MD Work Phone: noms Jpwtellsdk18-39-6784 10:269362SxW9% (BldA) [Mass fraction]98 %Abraham Cesar MD Work Phone: noms Grjmurvhwh24-80-8007 10:26050Systolic blood uqeuidri405 mm[Hg]Abraham Cesar MD Work Phone: noms Yaywsnvmqw52-73-8483 10:20-0400Body szzbge476.56 cmDadavid Roa Other [employer] Other 10-05-2023 10:20-0400Body mass index (BMI) [Ratio] 45.83 kg/m2Abner Roa Other [employer] Other 10-05-2023 10:20-0400Body qlvqxy933.11 kgDadavid Roa Other [employer] Other 04-06-2023 10:40-0400Body ayyuju848.56 cmDale Janina Other [employer] Other 04-06-2023 10:40-0400Body mass index (BMI) [Ratio] 42.05 kg/m2Abner Roa Other [employer] Other 04-06-2023 10:40-0400Body .13 kgDale Roa Other [employer] Other 04-06-2023 10:40-0400Diastolic blood mm[Hg] Abner Roa Other [employer] Other 04-06-2023 10:40-0400Systolic blood mm[Hg] Abner Roa Other [employer] Other 01-05-2023 16:20-0500Body vrwayu285.56 cmDale Roa Other [employer] Other 01-05-2023 16:20-0500Body mass index (BMI) [Ratio] 42.91 kg/m2Dale Roa Other [employer] Other 01-05-2023 16:20-0500Body lzledv522.4 kgDale Roa Other [employer] Other 11-10-2022 12:00-0500Body fshseq410.56 cmDale Roa Other [employer] Other 11-10-2022 12:00-0500Body mass index (BMI) [Ratio] 42.74 kg/m2Dale Roa Other [employer] Other 11-10-2022 12:00-0500Body bsltaw620.95 kgDale Roa Other [employer] Other 10-26-2022 13:01-0400Body .7 [degF]II Abraham Cesar Work Phone: [facility]10-26-2022 13:01-0400 Diastolic blood mm[Hg]II Abraham Cesar Work Phone: 1(034)661-[facility]10-26-2022 13:01-0400 Heart rate61 /WangI Abraham Cesar Work Phone: 1(516)690-[facility]10-26-2022 13:01-0400 Respiratory rate20 /WangI Abraham Cesar Work Phone: 1(057)626-[employer]1[facility]10-26-2022 13:01-0400 SaO2% (BldA) [Mass fraction]96 %II Abraham Cesar Work Phone: 1(419)[address] [place], [place] 0576210-26-2022 13:01-0400 Systolic blood aututnxq587 mm[Hg]II Abraham Cesar Work Phone: 1(030)[address] [place], [place] 0576210-26-2022 07:05-0400 Body .02 cmII Abraham Cesar Work Phone: 1(793)[address] [place], [place] 0576210-23-2022 06:02-0400 Body xzajkx099.1 kgII Abraham Cesar Work Phone: 1(788)[address] [place], [place] 0576210-14-2022 14:02-0400 Diastolic blood dypibjlh89 mm[Hg]II Abraham Cesar Work Phone: 1(655)[address] [place], [place] 0576210-14-2022 14:02-0400 Systolic blood cusdagcj489 mm[Hg]II Abraham Cesar Work Phone: 1(701)[address] [place], [place] 0576210-14-2022 11:12-0400 Body ohhlipobhkr82.6 [degF]II Abraham Cesar Work Phone: 1(025)[address] [place], [place] 0576210-14-2022 11:12-0400 Heart rate66 /minII Abraham Cesar Work Phone: 1(523)[address] [place], [place] 0576210-14-2022 11:12-0400 Respiratory rate16 /minII Abraham Cesar Work Phone: 1(320)[address] [place], [place] 0576210-14-2022 11:12-0400 SaO2% (BldA) [Mass fraction]95 %II Abraham Cesar Work Phone: 1(592)[address] [place], [place] 0576210-14-2022 06:41-0400 Body lttexi412 kgII Abraham Cesar Work Phone: 1(701)[address] [place], [place] 0576210-12-2022 17:30-0400 Inhaled oxygen flow rate2 L/minII Abraham Cesar Work Phone: 1(400)[address] [place], [place] 0576210-11-2022 09:55-0400 Body awxwfw794.02 cmII Abrahamjason Cesar Work Phone: 1(872)[address] [place], [place] 0576210-10-2022 08:15-0400 Body mass index (BMI) [Ratio]44.5 kg/m2II Abraham Cesar Work Phone: [facility]08-09-2022 14:40-0400 Body zbiojx878.56 cmDale Roa Other [employer] Other 08-09-2022 14:40-0400Body mass index (BMI) [Ratio] 42.74 kg/m2Dale Roa Other [employer] Other 08-09-2022 14:40-0400Body .95 kgDale Janina Other [employer] Other 07-01-2022 12:30-0400Body tuklsa087.56 cmSlona Saavedra Other [employer] Other 07-01-2022 12:30-0400Body mass index (BMI) [Ratio] 42.74 kg/c4DiuudzDevang Saavedra Other [employer] Other 07-01-2022 12:30-0400Body mduheu493.95 kgShchristian Saavedra Other [employer] Other 07-01-2022 12:30-0400Diastolic blood omomqgwi15 mm[Hg] Devang Saavedra Other [employer] Other 07-01-2022 12:30-0400Systolic blood alzqqvof509 mm[Hg] Devang Saavedra Other [employer] Other 06-30-2022 16:00-0400Body .56 cmDale Roa Other [employer] Other 06-30-2022 16:00-0400Body mass index (BMI) [Ratio] 43.59 kg/m2Dale Roa Other [employer] Other 06-30-2022 16:00-0400Body toinhc088.21 kgDale Roa Other [employer] Other 06-02-2022 17:15-0400Body fnibfe360.21 kgSherif Keri Other [employer] Other 06-02-2022 17:15-0400Diastolic blood rihkbpkj45 mm[Hg] Devang Saavedra Other [employer] Other 06-02-2022 17:15-9737ZlS6% (BldA) [Mass fraction]98 % Devang Saavedra Other [employer] Other 06-02-2022 17:15-0400Systolic blood ngzyjtnn337 mm[Hg] Devang Saavedra Other [employer] Other 05-18-2022 17:15-0400Body ddecpi836.21 kgSherif Keri Other [employer] Other 05-18-2022 17:15-0400Diastolic blood ocqnqtbj80 mm[Hg] Devang Saavedra Other [employer] Other 05-18-2022 17:15-0400Systolic blood oqitftwd853 mm[Hg] Devang Saavedra Other [employer] Other 05-09-2022 11:45-0400Body wdamih522.57 kgSherif Keri Other [facility] Other 05-09-2022 11:45-0400Diastolic blood xkhybxym23 mm[Hg] Devang Saavedra Other [facility] Other 05-09-2022 11:45-0949CzP3% (BldA) [Mass fraction]93 % Devang Saavedra Other [facility] Other 05-09-2022 11:45-0400Systolic blood eyebwzjf410 mm[Hg] Devang Saavedra Other [facility] Other 04-19-2022 11:30-0400Body cvfoha731.47 kgBrigidaandreeloi Saavedra Other [facility] Other 04-19-2022 11:30-0400Diastolic blood tutqjiql35 mm[Hg] Devang Saavedra Other [employer] Other 04-19-2022 11:30-5679XfJ4% (BldA) [Mass fraction]97 % Devang Saavedra Other [facility] Other 04-19-2022 11:30-0400Systolic blood byvichbi674 mm[Hg] Devang Saavedra Other [facility] Other Encounters Encounter DateEncounter TypeCare ProviderFacilityStart: 58-97-6057tyyuoyqwxvDHHU CHACKOUnAshtabula County Medical Centertart: 04-15-2025 End: 44-80-8996irwxqbggupGgbqohSaurabh Perez HealthcareComment on above: Gastroesophageal reflux disease, unspecified whether esophagitis presentStart: 04-11-2025 End: 68-93-8184eyhfxgqwpuQUBSSV MOWayne Hospital Start: 04-06-2025 End: 54-90-5355Iqejjqqmt Result EncounterGeneric External Data ProviderNOMS External Department UnsolicitedStart: 04-06-2025 End: 79-58-0978Mbtfgvlnq Result EncounterGeneric External Data ProviderNOMS External Department UnsolicitedStart: 03-29-2025 End: 51-63-0324Bmbfuajdfy and management of inpatientAndrei Mateusz BREWER-[facility] Work Phone: Start: 19-41-8905Baj-patient / Non-visitCollchristian Collazo MD-[facility] Orthopedics Work Phone: Start: 45-79-4323vciibzoumkd encounterDaniel Cesar II Work Phone: [phone] [facility] SurgStart: 03-25-2025 End: 38-77-7165Qfmgmokfw department patient visitDaniel Cesar II Work Phone: 1([phone]-Efgcglsnb Room Work Phone: Start: 23-89-5722dgpyvinjctAHQX [facility] Hospitaltart: 03-16-2025 End: 82-73-1285Ipgqqgqbn Result EncounterGeneric External Data ProviderNOMS External Department UnsolicitedStart: 03-16-2025 End: 19-40-0981Jmyqyicie Result EncounterGeneric External Data ProviderNOMS External Department UnsolicitedStart: 03-16-2025 End: 70-22-1644nxnhzevthuNdogmo Cesar II Work Phone: [facility] Work Phone: Start: 03-16-2025 End: 09-03-0836Jmgktdw encounter Farnaz Lyons MD-[facility] Vascular Surg Work Phone: Start: 90-95-9998rnljknefqpEbdxxx Berry Facility:[facility]art: 06-74-8574Irbgqcvebv Recurring Molly Dunn APRN-[facility] Work Phone: Start: 03-14-2025 End: 91-03-5032buwutjcbkwJCHEKZ MOUKARBOur Lady of [facility] Start: 03-02-2025 End: 96-66-8309Uzmdnv Cr Cesar MD Work Phone: noms Chad Tobar MedinceStart: 03-02-2025 End: 82-09-4808Oonbhy Cr Cesar MD Work Phone: noms Chad Tobar MedinceStart: 03-02-2025 End: 40-91-0223Txeozy outpatient visit 25 minutesAbraham Cesar MD Work Phone: noms Chad Tobar MedinceComment on above:Chronic systolic congestive heart failure (HCC); Reduced mobility; Type 2 diabetes mellitus with diabetic polyneuropathy, with long-term current use of insulin (HCC); Paroxysmal atrial fibrillation (HCC)Start: 03-02-2025 End: 34-58-2217mcpptiafchFRXTMX B BERRYNot AvailableStart: 23-52-0475dfpevzyuaf PAUL [facility] Hospitaltart: 02-14-2025 End: 34-28-4080Uyapsfnrc Result EncounterGeneric External Data ProviderNOMS External Department UnsolicitedStart: 02-14-2025 End: 93-29-9349Qaoozfgyh Result EncounterGeneric External Data ProviderNOMS External Department UnsolicitedStart: 02-11-2025 End: 56-62-8828Koednl outpatient visit 25 minutesAbraham Cesar MD Work Phone: noms Chad Tobar MedinceComment on above:Type 2 diabetes mellitus with diabetic polyneuropathy, with long-term current use of insulin (HCC)Start: 02-11-2025 End: 36-05-5254nfuhorruadHFKNSU B BERRYNot AvailableStart: 08-88-1848zggdhlrrdc [facility] Centertart: 19-66-7975cosiukdvewGJEYO GRUBB [facility] Hospitaltart: 09-02-9779Gihtqpjcs for preprocedural cardiovascular examinationBLAIR MARINWadsworth-Rittman Hospitaltart: 01-18-2025 End: 08-81-9192hggrutxmcmYRRD CHAOur Lady of Mercy Hospital - Andersontart: 01-14-2025 End: 49-29-0589Gsrcvycob Result EncounterGeneric External Data ProviderNOMS External Department UnsolicitedStart: 01-14-2025 End: 62-10-3903Zbitornbn Result EncounterGeneric External Data ProviderNOMS External Department UnsolicitedStart: 12-31-2024 End: 72-15-5328Iegrfo Jessica BABB Work Phone: NOM[facility] CI FMStart: 12-31-2024 End: 06-33-9887Ozhqhe Jessica BABB Work Phone: [facility] CI FMStart: 12-31-2024 End: 98-82-2401Hpmasi outpatient visit 25 minutesNati BABB Work Phone: N[facility] CI FMComment on above:Cellulitis of finger of right hand (Primary Dx); Blister of toe of right foot, initial encounter; Peripheral venous insufficiency; Chronic systolic congestive heart failure (HCC); Dilated cardiomyopathy (HCC)Start: 12-31-2024 End: 06-76-8943oswkvdadjqDHUNL M HEMMERNot AvailableStart: 12-23-2024 End: 22-34-2057Ghsnvd Cr Cesar MD Work Phone: [facility] CI FMStart: 12-23-2024 End: 82-86-3488Mrnbjs Cr Cesar MD Work Phone: [facility] CI FMStart: 12-23-2024 End: 07-84-3479xxunvnhlvyGJXLQA B BERRYNot AvailableStart: 12-23-2024 End: 42-60-1325Anhlkc outpatient visit 25 minutesAbraham Cesar MD Work Phone: N[facility] CI FMComment on above:Type 2 diabetes mellitus with diabetic polyneuropathy, with long-term current use of insulin (HCC) ( Primary Dx); Chronic systolic congestive heart failure (HCC); Muscle weakness (generalized); Peripheral venous insufficiency; Cellulitis of finger of right hand; AtaxiaStart: 12-20-2024 End: 01-99-4863hkskxwiuauDGFU SNIDERUnAshtabula County Medical Centertart: 12-20-2024 End: 98-32-1442Iqbsqibib Result EncounterGeneric External Data ProviderNOMS External Department UnsolicitedStart: 12-20-2024 End: 32-75-9558Syjlbnpga Result EncounterGeneric External Data ProviderNOMS External Department UnsolicitedStart: 12-15-2024 End: 64-07-9419Stsojksno Result EncounterGeneric External Data ProviderNOMS External Department UnsolicitedStart: 12-15-2024 End: 37-49-2879Leknhngyb Result EncounterGeneric External Data ProviderNOMS External Department UnsolicitedStart: 12-14-2024 End: 85-94-4846Gxexhdshp Result EncounterGeneric External Data ProviderNOMS External Department UnsolicitedStart: 12-14-2024 End: 51-85-6207Dkdmisexy Result EncounterGeneric External Data ProviderNOMS External Department UnsolicitedStart: 43-69-8802qfwrtmaavyAXMJRiverview Health Institutetart: 12-13-2024 End: 85-01-6981psxvhmaneuUZMLRiverview Health Institutetart: 12-08-2024 End: 68-89-5600Vwaiiqges Result EncounterGeneric External Data ProviderNOMS External Department UnsolicitedStart: 12-08-2024 End: 46-12-2979Xguzmvndb Result EncounterGeneric External Data ProviderNOMS External Department UnsolicitedStart: 12-07-2024 End: 05-58-7320Ldzenqtyler Meredith DPM Work Phone: NOM[facility] [place] PODStart: 12-07-2024 End: 00-05-2378Qimvnftyler Meredith DPM Work Phone: noMS [place] PODStart: 12-07-2024 End: 21-28-4069cfrzcoifhpONOEFJMJ A BROWNNot AvailableStart: 12-07-2024 End: 84-29-5253Rghfqnn encounter procedureNarinder Meredith DPM Work Phone: NON[facility]TH[facility] PODComment on above:Diabetes mellitus due to underlying condition with diabetic polyneuropathy, without long-term current use of insulin (HCC) (Primary Dx); Pain due to onychomycosis of toenails of both feet; Peripheral venous insufficiencyStart: 12-07-2024 End: 70-77-7192Sqcyrxp encounter Maxi Dunn APRN-[facility] Work Phone: Start: 12-07-2024 End: 54-95-3057gpzigwvvrkWtocrw [facility] Work Phone: [facility] Work Phone: Start: 49-56-2515Bokkdh outpatient visit 25 minutes Hemant [facility] InstituteStart: 34-51-1869lancimkpwvAskuxa [facility] InstituteStart: 38-23-7890Xvpvdtdzmb RecurringMolly Dunn R[employer]ER-[facility]ound [facility] [place] Work Phone: Start: 11-22-2024 End: 77-46-4281Jtpoclfsq Result EncounterGeneric External Data ProviderNOMS External Department UnsolicitedStart: 11-22-2024 End: 79-43-9789Gyhryqgzx Result EncounterGeneric External Data ProviderNOMS External Department UnsolicitedStart: 11-17-2024 End: 66-47-4797Fsmtrbvpp Result EncounterGeneric External Data ProviderNOMS External Department UnsolicitedStart: 11-17-2024 End: 45-43-7029Lkhznelbb Result EncounterGeneric External Data ProviderNOMS External Department UnsolicitedStart: 11-09-2024 End: 51-45-2630ljaahxupjaLPZQ [facility] Hospitaltart: 10-21-2024 End: 83-92-6179Ykxpjuguv Result EncounterGeneric External Data ProviderNOMS External Department UnsolicitedStart: 10-21-2024 End: 02-77-1543Snvjtsghl Result EncounterGeneric External Data ProviderNOMS External Department UnsolicitedStart: 10-21-2024 End: 13-07-2835Fdhteux encounter procedureAbraham Cesar II Work Phone: [facility] Work Phone: start: 10-21-2024 End: 09-18-3162lqtexyebboDvtkoe Berry II Work Phone: [facility] Work Phone: Start: 10-13-2024 End: 12-18-4121Yejbmx flowsSantosh eCsar MD Work Phone: noms CI FMStart: 10-13-2024 End: 49-06-8404Mzecxw Cr Cesar MD Work Phone: noms CI FMStart: 10-13-2024 End: 65-00-3743Gmgnz of hemosiderin, quantAbraham Cesar MD Work Phone: [facility] Work Phone: Start: 10-13-2024 End: 82-34-6613Xzgjwqt encounter procedureAbraham Cesar MD Work Phone: noMS CI FMComment on above:Routine general medical examination at health care facility (Primary Dx); ACP (advance care planning); Type 2 diabetes mellitus with diabetic polyneuropathy, with long-term current use of insulin ([facility]); Type 2 diabetes mellitus with hyperglycemia, with long-term current use of insulin ([facility]); Rheumatoid arthritis, unspecified; Estrogen deficiency; Breast screeningStart: 10-13-2024 End: 35-49-4456itmxlhohhzYPNJKO B BERRYNot AvailableStart: 34-59-0998Bbiurqhcas RecurringAbraham Cesar II Work Phone: [facility] Work Phone: Start: 09-21-2024 End: 69-51-4907Tedzyy Vidhya Meredith DPM Work Phone: [facility] [place] PODStart: 09-21-2024 End: 34-22-9657Rjmdtp Vidhya Meredith DPM Work Phone: [facility] [place] PODStart: 09-21-2024 End: 43-78-3837Cgzweqs encounter procedureNarinder Meredith DPM Work Phone: [facility] [place] PODComment on above:Diabetes mellitus due to underlying condition with diabetic polyneuropathy, without long-term current use of insulin (CMS/HCC) (Primary Dx); Pain due to onychomycosis of toenails of both feet; Peripheral venous insufficiencyStart: 09-21-2024 End: 28-77-1462tmtbvdipceNRTQZWCF A BROWNNot AvailableStart: 09-17-2024 End: 29-03-5098Fkrpwlhba Result EncounterGeneric External Data ProviderNOMS External Department UnsolicitedStart: 09-17-2024 End: 63-54-8843Sxeymeoay Result EncounterGeneric External Data ProviderNOMS External Department UnsolicitedStart: 09-13-2024 End: 18-55-7466Djhwlp Jessica BABB Work Phone: NOMS CI FMStart: 09-13-2024 End: 69-71-8886Aizyqc Jessica BABB Work Phone: NOMS CI FMStart: 09-13-2024 End: 07-30-9392axiwxsmvqkSPNIL M HEMMERNot AvailableStart: 09-13-2024 End: 46-14-9753Rsbpwl outpatient visit 25 minutesNati BABB Work Phone: NOMS CI FMComment on above:Type 2 diabetes mellitus with diabetic polyneuropathy, with long-term current use of insulin (CMS/HCC) (Primary Dx); Chronic systolic congestive heart failure (CMS/HCC); 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, limited to breakdown of skin (CMS/HCC); Cellulitis of left lower extremity; Morbid obesity (CMS/HCC); Non compliance w medication regimenStart: 09-03-2024 End: 14-93-8572Vqinzs Cr Cesar MD Work Phone: NOMS CI FMStart: 09-03-2024 End: 73-96-1642Wbzcja Cr Cesar MD Work Phone: NOMS CI FMStart: 09-03-2024 End: 47-36-8406aguualszbfHIWCUF MOUKAWright-Patterson Medical Center Start: 09-03-2024 End: 77-55-6639Zjtqcj outpatient visit 25 minutesDamelissa Cesar MD Work Phone: NOMS CI FMComment on above:Type 2 diabetes mellitus with diabetic polyneuropathy, with [...] complication, with long-term current use of insulin (CMS/HCC)Start: 09-03-2024 End: 82-26-0679ozmghibxuyRXHZFN B BERRYNot AvailableStart: 22-26-9211vniglfjatq [facility]AMPBELL ROH[facility]: 08-13-2024 End: 93-06-3057coczkykzjcIFOTJU B BERRYNot AvailableStart: 66-50-3361dabdqlcayw SUZANNE CRAWLEYMary Rutan Hospitaltart: 07-28-2024 End: 49-08-3822Cuqcaaaao Result EncounterGeneric External Data ProviderNOMS External Department UnsolicitedStart: 07-28-2024 End: 88-13-7080Orhabiazl Result EncounterGeneric External Data ProviderNOMS External Department UnsolicitedStart: 07-20-2024 End: 06-30-7074Cundpxvez Result EncounterCarlos Joshi MD Work Phone: NOMS External Department UnsolicitedStart: 07-20-2024 End: 54-14-1311Aohqlrcvp Result EncounterCarlos Joshi MD Work Phone: NOMS External Department UnsolicitedStart: 07-19-2024 End: 71-11-6280tpjaoigfodZEFGZQ [facility] Start: 64-44-7629Biiacpedk department patient visitAstrit Anthony AguilarjdariFacility:[facility] Start: 07-07-2024 End: 06-43-9043Sqlnqpwmvd and management of inpatientSandeep SinglaFacility:[facility] Start: 06-29-2024 End: 21-70-7758Pgbufmspw Result EncounterGeneric External Data ProviderNOMS External Department UnsolicitedStart: 06-29-2024 End: 20-05-1701Qvnbeezwz Result EncounterGeneric External Data ProviderNOMS External Department UnsolicitedStart: 06-13-2024 End: 06-33-7695Ynqogsqgx Result EncounterGeneric External Data ProviderNOMS External Department UnsolicitedStart: 06-13-2024 End: 16-71-0103Uoxnrjsyc Result EncounterGeneric External Data ProviderNOMS External Department UnsolicitedStart: 06-13-2024 End: 83-60-4091cnaavosvvpJnqmdz Cesar II Work Phone: [facility] Work Phone: Start: 06-13-2024 End: 12-34-6365Ncpelulk ReferredDaniel Cesar II Work Phone: [facility]-LAB Path Spec [facility] HospStart: 37-72-3517Lmm-patient / Non-visitDaniel Cesar II Work Phone: [facility] Pain Mgmt Work Phone: Start: 05-19-2024 End: 03-72-2172Sfnjhzmji to same day surgery centerDaniel Cesar II Work Phone: [facility]-Digestive Health Work Phone: Start: 05-19-2024 End: 46-64-0382ldzzgpscevXucqto S ZakyFacility:[facility] Start: 05-17-2024 End: 89-22-7774Zamdycu encounter procedureDaniel Cesar II Work Phone: [facility] Pain Mgmt Work Phone: Start: 05-12-2024 End: 78-53-6154Qikqcgj encounter procedureNoms Ci Fm Ls NurseNOMS CI FMComment on above:Burning with urinationStart: 05-12-2024 End: 51-65-2745srrxsocgutMBEGOB BERRYNot AvailableStart: 05-12-2024 End: 04-34-5731Daelbxcof encounterNati BABB Work Phone: NOMS CI FMStart: 10-41-1077qvoeqzcopcQqnxca Al Shweiki [facility] Institutetart: 39-38-0457iqvliaupxxIQUVIRY ROHITH [facility] Hospitaltart: 04-27-2024 End: 97-76-1287wwdevoylqeVHPQFRR [facility]ertart: 37-58-8298Pwzebbzixs and management of inpatientCALEB T [facility] Centertart: 86-84-5436Oteyjtzkuz and management of inpatient NIRAJ [facility] Centertart: 03-38-4900Omezntmzum and management of inpatientRAJESH [facility] Hospital Daytontart: 14-57-0255Woggkhxkal and management of inpatientRAJESH [facility] Daytontart: 84-07-4273Qdadzvrasi and management of inpatientRAJESH [facility] Daytontart: 08-12-5529Iyesithwyb and management of inpatientOMAR HORANIMary Rutan Hospitaltart: 41-46-0562Jiuqwsxoba and management of inpatientRAJESH [facility] Daytontart: 42-16-6833Bfylzloorq and management of inpatientSKAIA [facility] Hospitaltart: 21-68-1570Yslnkyyxcl and management of inpatientHODA MARYELLENMary Rutan Hospitaltart: 04-19-2024 End: 81-59-7942Qnljmbhzch and management of inpatientJEFFERY SHANNONMary Rutan Hospitaltart: 04-15-2024 End: 58-58-9377oaivopdvtlGPTMUEBT A BROWNNot AvailableStart: 04-15-2024 End: 58-34-3752Sccbrsy encounter procedureNarinder Meredith DPM Work Phone: NOMS CI PODIATRYComment on above:Diabetes mellitus due to underlying condition with diabetic polyneuropathy, without long-term current use of insulin ([facility]) (Primary Dx); Pain due to onychomycosis of toenails of both feet; Peripheral venous insufficiencyStart: 04-15-2024 End: 17-90-9981Dhvrxa Vidhya Meredith DPM Work Phone: noMS CI PODIATRYStart: 04-15-2024 End: 04-78-5819Lhkbpv Vidhya Meredith DPM Work Phone: NOMS CI PODIATRYStart: 04-08-2024 End: 87-47-3144aonqsncndnLybdnovrdNewark Hospital Work Phone: Start: 04-08-2024 End: 99-89-9578Dkqvtcm encounter procedureNov[facility] Neurosurgery Work Phone: start: 04-02-2024 End: 37-44-3414Cczabt Cr Cesar MD Work Phone: NOMS CI FMStart: 04-02-2024 End: 81-95-9247Jsjjuk Cr Cesar MD Work Phone: NOMS CI FMStart: 04-02-2024 End: 55-35-0483ursxesovtlJJRSFL B BERRYNot AvailableStart: 04-02-2024 End: 79-28-6611Mhzqpl outpatient visit 25 minutesDamelissa Cesar MD Work Phone: NOMS CI FMComment on above:Type 2 diabetes mellitus with hyperglycemia, with long-term current use of insulin ([facility]) (Primary Dx); Abnormal MRI, lumbar spineStart: 03-29-2024 End: 88-44-9743Qlsmmt Jessica Virk PA Work Phone: NOMS CI FMStart: 03-29-2024 End: 76-78-4318Mxpyly flowsHua Virk PA Work Phone: NOMS CI FMStart: 03-29-2024 End: 95-08-9846Cizepv outpatient visit 15 minutesNati Virk PA Work Phone: NOMS CI FMComment on above:Spinal stenosis of lumbar region without neurogenic claudication (Primary Dx); Right lumbar radiculopathy; Difficulty walkingStart: 03-29-2024 End: 09-80-6542gwotzwdczlOGARM M HEMMERNot AvailableStart: 03-25-2024 End: 82-54-7345Msexqngjs Result EncounterAbraham Cesar MD Work Phone: NOMS External Department UnsolicitedStart: 03-25-2024 End: 04-65-9768Liwpggnkr Result EncounterAbraham Cesar MD Work Phone: NOMS External Department UnsolicitedStart: 03-19-2024 End: 79-35-0144Okeebhyvj encounterArminda Christianson CMAProMedica Physicians Neurology Start: 03-15-2024 End: 07-87-0507Ayyxyq Cr Cesar MD Work Phone: NOMS CI FMStart: 03-15-2024 End: 01-27-0293Rzahlg Cr Cesar MD Work Phone: NOMS CI FMStart: 03-15-2024 End: 63-21-1292mgpuxymfbsTSRRLI B BERRYNot AvailableStart: 03-15-2024 End: 27-50-5565Rzujnz outpatient visit 25 minutesAbraham Cesar MD Work Phone: NOMS CI FMComment on above:Acute right-sided low back pain with right-sided sciatica (Primary Dx); Right lumbar radiculopathy; Muscle spasmStart: 03-08-2024 End: 80-23-1136Agswvl Tara Mckay PTANOMS CI PTStart: 03-08-2024 End: 44-78-5027Rxhntc Tara Mckay PTANOMS CI PTStart: 03-08-2024 End: 67-71-5327kcihympycpOdqsuek Lawrence PTANOMS CI PTComment on above:Acute right-sided back pain with sciatica (Primary Dx); Acute right-sided low back pain with right-sided sciaticaStart: 03-03-2024 End: 63-01-6643Mrbmmycnx Result EncounterGeneric External Data ProviderNOMS External Department UnsolicitedStart: 03-03-2024 End: 32-62-0069Tjqdilsbe Result EncounterGeneric External Data ProviderNOMS External Department UnsolicitedStart: 03-03-2024 End: 13-81-9000ahsjaxsaiqSmagfziip Schneider PTNOMS CI PTComment on above:Acute right-sided back pain with sciatica (Primary Dx); Acute right-sided low back pain with right-sided sciaticaStart: 03-01-2024 End: 96-18-6226Sfuyhz outpatient visit 25 minutesAbrahma Cesar MD Work Phone: noms CI FMComment on above: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 (CM S/HCC) (Primary Dx); Type 2 diabetes mellitus with hyperglycemia, with long-term current use of insulin (CMS/[facility]); Acute on chronic diastolic heart failure (CMS/HCC)Start: 02-26-2024 End: 08-40-0609fjcfxekpfgReblhfkMontrell Mckay PTANOMS CI PTComment on above:Acute right-sided back pain with sciatica (Primary Dx); Acute right-sided low back pain with right-sided sciaticaStart: 02-24-2024 End: 18-11-6496Kqjpiv Tara Mckay PTANOMS CI PTStart: 02-24-2024 End: 78-76-4494Arumai Tara Mckay PTANOMS CI PTStart: 02-24-2024 End: 07-27-0265svhzhwkwttLjlsyef Lawrence PTANOMS CI PTComment on above:Acute right-sided back pain with sciatica (Primary Dx); Acute right-sided low back pain with right-sided sciaticaStart: 02-18-2024 End: 03-41-3368Ftahmw flowsheetSammantha Rhoades PTNOMS CI PTStart: 02-18-2024 End: 97-67-3069Prsgas flowsheetSammantha Rhoades PTNOMS CI PTStart: 02-18-2024 End: 89-56-9355mmpeoqzjrvFslbzzyne Rhoades PTNOMS CI PTComment on above:Acute right-sided back pain with sciatica (Primary Dx); Acute right-sided low back pain with right-sided sciaticaStart: 02-11-2024 End: 16-21-9528Nvyvyf Tara Mckay PTANOMS CI PTStart: 02-11-2024 End: 01-76-2857Nrbtdv Taar Mckay PTANOMS CI PTStart: 02-11-2024 End: 07-26-7934uluykxmgwtGgdqmhu Lawrence PTANOMS CI PTComment on above:Acute right-sided back pain with sciatica (Primary Dx); Acute right-sided low back pain with right-sided sciaticaStart: 02-05-2024 End: 48-36-8301Jtxvfx outpatient visit 15 minutesNarinder Meredith DPM Work Phone: noms CI PODIATRYComment on above:Peripheral venous insufficiency (Primary Dx); Onychomycosis; Toe pain, bilateral; Diabetes mellitus due to underlying condition with diabetic polyneuropathy, without long-term current use of insulin ([facility])Start: 02-05-2024 End: 28-78-4006dlzcnuoyuaMghnit Tattersall PTANOMS CI PTComment on above:Acute right-sided back pain with sciatica (Primary Dx); Acute right-sided low back pain with right-sided sciaticaStart: 02-03-2024 End: 95-36-1400stjwjxfqruKxtndll Lawrence PTANOMS CI PTComment on above:Acute right-sided back pain with sciatica (Primary Dx); Acute right-sided low back pain with right-sided sciaticaStart: 02-03-2024 End: 00-17-7909Konwre Tara Mckay PTANO CI PTStart: 02-03-2024 End: 59-48-4114Nxqker Tara Mckay PTANOMS CI PTStart: 01-27-2024 End: 91-10-2198Nzrjpe Tara Mckay PTANOMS CI PTStart: 01-27-2024 End: 43-41-5830Cuevid Tara Mckay PTANOMS CI PTStart: 01-27-2024 End: 72-55-2234snrjkttktfQmqrqkb Lawrence PTANOMS CI PTComment on above:Acute right-sided back pain with sciatica (Primary Dx); Acute right-sided low back pain with right-sided sciaticaStart: 01-08-2024 End: 35-95-2100Vne El Rashedy Work Phone: [facility] [place]Start: 12-15-2023 End: 63-88-5331Udbgli outpatient new 45 minutesCasey العلي MD Work Phone: [facility] Physicians NeurologyComment on above: Diabetic polyneuropathy associated with diabetes mellitus due to underlying condition (CMS-HCC) (Primary Dx); Bilateral carpal tunnel syndromeStart: 12-15-2023 End: 40-04-1068figwvxaavaFRGM A PIRZADAMartins Ferry Hospital Ambulatory PPGStart: 12-09-2023 End: 47-84-0125Jxh El Rashedy Work Phone: [facility] [place]Start: 12-04-2023 End: 07-85-5830Umnplofxc Result EncounterAbraham Cesar MD Work Phone: NOMS External Department UnsolicitedStart: 12-04-2023 End: 26-20-4350Hvfibstbs Result EncounterAbraham Cesar MD Work Phone: noms External Department UnsolicitedStart: 10-30-2023 End: 84-85-2014Vlibmx outpatient new 45 minutesMay El Rashedy Work Phone: [facility] [place]Start: 10-23-2023 End: 68-80-6906Lzclqzqce Result EncounterGeneric External Data ProviderNOMS External Department UnsolicitedStart: 10-23-2023 End: 73-64-9232Cwlcafhza Result EncounterGeneric External Data ProviderNOMS External Department UnsolicitedStart: 10-23-2023 End: 46-82-4645cjqksswtezWL Abraham Cesar Work Phone: [facility] Work Phone: Start: 10-23-2023 End: 31-82-6970Sprfhls encounter procedureII Abraham Cesar Work Phone: [facility] Neurosurgery Work Phone: start: 10-21-2023 End: 32-86-9355Fcg Jason Contreras Work Phone: RVWilliam [place]kyStart: 67-66-7352Qbeljdrqv encounterHalSan Francisco VA Medical Center Physicians NeurologyComment on above:NEW PATIENT REFERRALStart: 08-19-2023 End: 94-52-4830Ngslfo outpatient visit 25 [facility] centerRobbi Uribe MD Work Phone: [facility] NeurologyComment on above:TIA (transient ischemic attack) (Primary Dx); Bilateral carpal tunnel syndromeStart: 08-19-2023 End: 86-77-3781vmvwrpmczcOLTSNovant Health [facility] Ambulatory PPGStart: 08-14-2023 End: 84-69-2042Rmuecjlif Result EncounterGeneric External Data ProviderNOMS External Department UnsolicitedStart: 08-14-2023 End: 60-84-9905Yqvdglgct Result EncounterGeneric External Data ProviderNOMS External Department UnsolicitedStart: 07-23-2023 End: 66-78-0122Lmomafbra Result EncounterGeneric External Data ProviderNOMS External Department UnsolicitedStart: 07-23-2023 End: 51-03-7821Ozzjnlogf Result EncounterGeneric External Data ProviderNOMS External Department UnsolicitedStart: 27-77-4024Wbibxf flowsheetAbraham Cesar MD Work Phone: NODW CI FMStart: 72-45-7426Dghfbt flowsheetDamelissa Cesar MD Work Phone: NOMS CI FMStart: 07-21-2023 End: 73-15-3676Yaoesavgygkd care manage srvc 14 day dischargeDerendira Cesar MD Work Phone: noms CI FMComment on above:COVID (Primary Dx); NSTEMI (non-ST elevated myocardial infarction) ([facility]); Acute on chronic diastolic heart failure ([facility]); Type 2 diabetes mellitus with hyperglycemia, with long-term current use of insulin ([facility]); 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); Morbid (severe) obesity due to excess calories (E66.01); Body mass index [BMI] 45.0-49.9, adult (Z68.42); 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 ([facility])Start: 67-33-1161Fdiyvpyhq encounterPaige Shaji [facility] Physicians NeurologyStart: 07-01-2023 End: 02-42-3693Pytaqgjmc Result EncounterAbraham Cesar MD Work Phone: noms External Department UnsolicitedStart: 07-01-2023 End: 50-64-5770Puqzcajwk Result EncounterbAraham Cesar MD Work Phone: noms External Department UnsolicitedStart: 03-13-2023 Office outpatient visit 15 minutesDale [facility] NeurosurgeryStart: 03-13-2023 End: 17-68-5205gvzobobeawVG Abraham Cesar Work Phone: [facility] Work Phone: Start: 03-13-2023 End: 76-58-7620Pbvucee encounter procedureII Abraham Cesar Work Phone: [facility] Work Phone: Start: 76-65-4093woqhkfmbknXD ABRAHAM CESARFacility:H1 Start: 47-68-3393Wjawbb outpatient visit 15 minutesDadavid [facility] NeurosurgeryStart: 09-12-2022 End: 93-27-8705sdevmxascgWG Daniel Berry Work Phone: [facility] Work Phone: Start: 09-12-2022 End: 84-26-5711Ioyvlrp encounter procedureII Abraham Melba Work Phone: [facility]-X[facility] [place] Work Phone: Start: 06-13-2022 End: 74-93-5252Uypnrmz encounter procedureII Abraham Cesar Work Phone: [facility] Work Phone: Start: 06-13-2022 End: 28-99-8325utgzdmnljcOE Abraham Cesar Work Phone: [facility] Work Phone: Start: 67-92-0848Kfzwvk follow up visit related to original pxDale [facility] NeurosurgeryStart: 05-17-2022 End: 37-04-9638kemspkagnlTP DANIEL BERRYFacility:V8Vfqvm: 05-14-2022 End: 07-54-3540cxqgrytodnXX ABRAHAM CESARFacility:C4Nnsve: 05-09-2022 End: 78-51-6315yybeqzjrfpBD Daniel Berry Work Phone: [facility] Work Phone: Start: 05-09-2022 End: 50-37-8344Cugkljdwzc RecurringII Abraham Cesar Work Phone: [facility]-Physical Therapy [place] Work Phone: Start: 96-91-9730Tgvrsmtchk RecurringII Abraham Melba Work Phone: [facility]-Physical Therapy [place] Work Phone: Start: 04-18-2022 End: 33-42-1304nqeabtqvrtObti Roa Other [employer] Other start: 00-23-7331Gmhgoo follow up visit related to original pxDadavid RoaG [facility] NeurosurgeryStart: 04-09-2022 End: 15-58-3219tlgmllpjaaLX Abraham Cesar Work Phone: [facility] Work Phone: Start: 04-09-2022 End: 26-76-0517Qvhtmez encounter procedureII Abraham Cesar Work Phone: [facility]Start: 03-22-2022 End: 94-61-2569Osmgzbuxpm and management of inpatientII Abraham Cesar Work Phone: [facility] RehabStart: 96-71-8771Ccqyqykoq to same day [facility] CtrStart: 03-18-2022 End: 33-90-2409epbxzqpbknTqkh Braun Other [employer] [place] Other start: 03-18-2022 End: 76-09-8128Ldnphhmnap and management of inpatientII Abraham Cesar Work Phone: [facility]-4 [facility] SurgicalStart: 03-14-2022 End: 89-84-2580ddjsqxifiqYP Abraham Cesar Work Phone: [facility] Work Phone: Start: 03-14-2022 End: 52-76-7479Vqetlyk encounter procedureII Abraham Cesar Work Phone: [facility] V[facility]-Lez-Xqqfamkg Testing Start: 03-05-2022 End: 21-07-8660gvuvkynnqgYK Abraham Cesar Work Phone: [facility] Work Phone: Start: 03-05-2022 End: 97-08-7220Wntzhsj encounter procedureII Abraham Cesar Work Phone: [facility]-Pre-Surgical Testing Start: 01-15-2022 End: 64-21-0376wtflpltlnwNrrt Braun Other [employer] Other start: 29-03-7170Twfvzl outpatient visit 40 minutes Abner Elliott [facility] NeurosurgeryStart: 01-09-2022 End: 00-82-4328Hjkymok encounter procedureMD Abner Roa Work Phone: [facility] Start: 01-07-2022 End: 39-90-5368twwfrspigsNkcrvu Zaky Other [employer] Other Start: 79-97-0423Ocgbwgpei encounterSherolga Mg Pain ManagementStart: 01-03-2022 End: 32-87-5035Jubvuhr encounter procedureMD Abner Roa Work Phone: [facility] CampusStart: 12-07-2021 End: 45-76-4186myfhpkbjqrUcmrba Zaky Other [employer] Other Start: 52-50-3267Qasmig outpatient visit 25 minutes Devang Mg Pain Management [place]Start: 12-06-2021 End: 40-04-8709qjnfpvtnsgSkhf Braun Other [employer] Other start: 72-22-8641Oqapwf outpatient new 30 minutesDadavid RoaMiracle [facility] NeurosurgeryStart: 11-09-2021 End: 16-17-1748jbobdsqihyMswm Braun Other [employer] Other start: 73-71-9192Jzbzrpotb encounterDadavid Elliott Referral CoordinatorStart: 11-08-2021 End: 27-91-1799lgnsnlsmhmTpdpzl Zaky Other [employer] [place] Other Start: 82-01-9170Ywhaqc outpatient visit 25 minutes Devang ZakyFPG Pain ManagementStart: 10-24-2021 End: 43-48-0585fmppyfvzpaHavyrq Keri Other [employer] [place] Other Start: 29-25-4800Ednvyp outpatient visit 25 minutes Devang ZakyFPG Pain ManagementStart: 10-15-2021 End: 90-28-6848ilnfyscwhjIeasoc Keri Other [facility] [place] Other Start: 24-43-9373Zfvviz outpatient visit 25 minutes Devang ZakyFPG Pain ManagementStart: 10-04-2021(Procedure) Julien Medina [facility] Surgery CenterStart: 10-04-2021 End: 62-94-2269cipicqokffUenbgq Keri Other [facility] [place] Other Start: 09-25-2021 End: 36-97-2877zuwxvxyepcFqhbch Keri Other [facility] [place] Other Start: 95-98-0756Xyjhbu outpatient new 45 minutes Devang ZakyFPG Pain ManagementStart: 08-18-2018 End: 01-11-6792Pxicxop encounter procedureDEFAULT PHYSICIANFacility:UTMCStart: 08-17-2018 End: 32-51-0499Fptombk encounter procedureDEFAULT PHYSICIANFacility:[facility] Procedures DateProcedureProcedure DetailPerforming ClinicianStart: 77-12-4884RYOMavfwwd External Data ProviderStart: 12-02-1171BG of right hipDamelissa Lumicell Work Phone: Start: 88-10-1525Ucfdkcpf identified in Blood by CultureDNeuro Hero Work Phone: Start: 19-05-9641K-ray of both feetDadarellel Melba FLORES Work Phone: Start: 93-41-5009FCTPcjhtbg External Data Provider Start: 49-22-3598Jghrmvjqzn glycosylated r6yAoklkwjason Cesar MD Work Phone: Start: 94-54-8328PUYVeaigkc External Data Provider Start: 28-62-6431Tomvnddpdf glycosylated n5eNnrmogmelissa Cesar MD Work Phone: Start: 12-76-7027Klprpsbjlmke ophthalmic imaging retinaSamelove Al ShweikiStart: 99-40-8321Lrhfc loclzd lesion retina 1/ sess pc Hemant Al ShweikiStart: 78-41-3707ZQHEebalug External Data ProviderStart: 94-39-0754Aajzzikphh glycosylated x6oXdpwbxmelissa Cesar MD Work Phone: Start: 75-53-1090TPY BASIC METABOLIC PANELGeneric External Data ProviderStart: 40-31-6284MTR PRO BNPGeneric External Data Provider Start: 28-33-3377MIIHanpbnh External Data ProviderStart: 12-12-3491FF CHEST 2V Generic External Data ProviderStart: 28-57-4495PFP CBC WITH AUTO DIFFGeneric External Data ProviderStart: 68-64-0436Xnukuuramua angrph w/multiframe i&r uni/biSandie Al ShweikiStart: 60-34-9075Tbolosrrrzcz njx pharmacologic agt spx Hemant Al ShweikiStart: 59-32-9896Jxjdnni Prefilled SyringeSameer Al Shweiki Start: 94-51-8459Fqsafpd microbial cultureDsan [facility] Melba FLORES Work Phone: Start: 82-68-5760Kvuyqjvux microbial cultureDsan [facility] Melba II Work Phone: Start: 01-37-9225Vaqu stain microscopyDamelissa Cesar II Work Phone: Start: 31-83-3191GOOFlqgfpe External Data Provider Start: 80-97-4578TSYLxijdac External Data ProviderStart: 08-89-6821OE ECHO DOPPLER COMPLETEGeneric External Data ProviderStart: 39-21-7269G-ray of lumbar spine, four viewsDalake county memorial hospital [facility] Melba FLORES Work Phone: Start: 86-00-9564Lpxojmudgt glycosylated p6jGtptoamelissa Cesar MD Work Phone: Start: 05-33-9947Vergqfw microbial cultureDDunlap Memorial Hospital Work Phone: Start: 78-52-0020Ikeqhsrej microbial [facility] Work Phone: Start: 17-28-4422Zdzh stain microscopyDalake county memorial hospital [facility] west Cesar Work Phone: Start: 78-55-6082RWL BASIC METABOLIC PANELGeneric External Data ProviderStart: 01-26-5754PD ECHO DOPPLER COMPLETEGeneric External Data ProviderStart: 20-80-5520VVH UA (CLEAN/CATCH) REIMBURSEMENT SPEC/MICRO IF IND.Carlos Joshi MD Work Phone: Start: 86-08-7151Brlodewl stent (physical object) Luigi Montana Start: 59-60-6679Sfdpbrahzxgjhfi of left heartSanddaylinp Nan Start: 82-59-6455Bxxeelfkypvd coronary intervention of anterior descending branch of left coronary arterySandshyann Montana Start: 12-27-1226SK ECHO DOPPLER COMPLETEGeneric External Data ProviderStart: 24-55-3835BIWJP CULTURE 2Generic External Data ProviderStart: 51-82-7087MLRJN CULTURE 1Generic External Data ProviderStart: 04-18-0261Avptolkrt of local anesthetic into sacroiliac jointDalake county memorial hospital [facility] Melba FLORES Work Phone: Start: 60-63-4688Bzjao dip stick/tablet rgnt non-auto w/o micrscRenae BABB Work Phone: Start: 52-50-7156Fzprdihkbsxm njx pharmacologic agt spxSameer Al ShweikiStart: 08-42-5032Ugfafwi Prefilled SyringeSameer Al Shweiki Start: 16-12-3835Vnuqucxufu glycosylated t0lKujfgrAbraham Cesar MD Work Phone: Start: 44-72-1870Wzt spinal canal lumbar w/o & w/contr matrlDerendira Cesar MD Work Phone: Start: 11-72-5702TUI CBC WITH AUTO DIFFGeneric External Data ProviderStart: 59-62-2982Pqkwgvzfoh glycosylated d5xZlhqckAbraham Cesar MD Work Phone: Start: 01-08-2024 End: 62-07-1922Bicgkppvhvbk ophthalmic imaging retinaMay El Rashedy MDStart: 01-08-2024 End: 80-26-1665Odgbk 1mg Pre-filled SyringeMay El Rashedy MDStart: 01-08-2024 End: 58-22-2879Fqciudhoizej njx pharmacologic agt spxMay El Rashedy MDStart: 12-09-2023 End: 06-53-6904Mklwkueeuicg ophthalmic imaging retinaMay El Rashedy MDStart: 12-09-2023 End: 45-75-1884Yzpzj 1mg Pre-filled SyringeMay El Rashedy MDStart: 12-09-2023 End: 60-22-4372Itatywszhrdq njx pharmacologic agt spxMay El Rashedy MDStart: 43-58-8783OD TOMOSYNTHESIS SCREENING Crystal Cesar MD Work Phone: Start: 15-01-6808OqlqaxtjyzfBbanmyh Osmar PTAStart: 10-30-2023 End: 46-30-4999Eanwssayzjxr ophthalmic imaging retinaMay El Rashedy MDStart: 10-30-2023 End: 81-22-9594Sqvqq 1mg Pre-filled SyringeMay El Rashedy MDStart: 10-30-2023 End: 85-25-1249Ndeulu Photos No Charge BilateralMay El Rashedy MDStart: 10-30-2023 End: 75-30-3914Omiawclmnjck njx pharmacologic agt spxMay Jason Contreras MDStart: 62-73-9051LOBOwqibeu External Data ProviderStart: 12-42-9232R-ray of lumbar spine, four viewsII Abraham Cesar Work Phone: Start: 92-18-1807Mijvr depression screening assessment Robbi Uribe MD Work Phone: Start: 27-39-9236KCTC ECHO LIMITED STUDYGeneric External Data ProviderStart: 49-62-1103HF ECHO DOPPLER COMPLETEGeneric External Data ProviderStart: 04-19-7393XF CHEST 2VDerendira Cesar MD Work Phone: Start: 22-15-2614T-ray of lumbar spine, four viewsII Abraham Cesar Work Phone: Start: 90-42-8668Chsqdkw of placement of stent for coronary artery diseaseS/P drug eluting coronary stent placementAbraham Cesar MD Work Phone: Start: 05-45-5139MsxusiglxszLyzuje Berry MD Work Phone: Start: 79-51-1314K-ray of lumbar spine, four viewsII Abraham Cesar Work Phone: Start: 15-79-8046I-ray of lumbar spine, four viewsII Abraham Cesar Work Phone: Start: 64-75-5655H-ray of lumbar spine, two or three viewsII Abraham Cesar Work Phone: Start: 76-21-0220Tqcmsz scan of lower limb veinsII Abraham Cesar Work Phone: Start: 54-44-7724AX XLIF Lumbar Lateral Interbody Fusion (Not Applicable)II Abraham Cesar Work Phone: Start: 97-17-8973L-ray of lumbar spine, two or three viewsII Abraham Cesar Work Phone: Start: 86-82-9035Zfao energy X-ray absorptiometryMD Abner Roa Work Phone: start: 20-60-0223P-ray of lumbar spine, six views including bending viewsMD Abner Roa Work Phone: start: 45-80-0317NE pre/post mri xrayMD Abner oRa Work Phone: start: 66-76-0683EKR of cervical spine without contrastMD Abner Roa Work Phone: start: 07-12-2015H/O: hysterectomyHistory of hysterectomyAbraham Cesar MD Work Phone: History of decompression of median nerveHistory of carpal tunnel surgery of right wristMARK Cesar Work Phone: Plan of Treatment DateCare ActivityDetailAuthorStart: 74-98-0379Jraupssy screeningDiabetes: Retinopathy ScreeningJORDAN VALLEY [facility] HealthcareStart: 53-34-8245Sscisivlb for malignant neoplasm of colonColorectal Cancer ScreeningJORDAN VALLEY [facility] HealthcareComment on above: Postponed from 1952 (Patient Refused)Start: 81-47-0031Wgknolsiah A1c measurementDiabetes: Hemoglobin J6SSXLSHermann Area District HospitalStart: 65-16-6279Fezrvemdjd A1c measurementDiabetes: Hemoglobin P3PQOWEHermann Area District HospitalStart: 06-59-0688DabzjyjzpUniversity Hospitals Cleveland Medical Centertart: 69-96-5316Xdbfyzfkwemwme of prophylactic treatmentUniversity Hospitals Cleveland Medical Centertart: 33-75-4141GpskxxdkpsyyReeerpbiaUniversity Hospitals Cleveland Medical Centertart: 16-88-0417TanzrrxgrUniversity Hospitals Cleveland Medical Centertart: 81-02-8866Zklkxpwj therapy procedureUniversity Hospitals Cleveland Medical Centertart: 83-32-5505Hrbbcvmv to occupational therapistPaulding County Hospital Start: 58-78-7129LqvprxwalUniversity Hospitals Cleveland Medical Centertart: 90-12-0120TozirzlawUniversity Hospitals Cleveland Medical Centertart: 90-94-8768Yetpfeow admissionUniversity Hospitals Cleveland Medical Centertart: 63-44-6371Pwuzfrfp identified in Blood by CultureBlood CultureUniversity Hospitals Cleveland Medical Centertart: 92-01-4123FwrkyjwxbUniversity Hospitals Cleveland Medical Centertart: 66-04-6058Hsdoanfo identified in Blood by CultureBlood CultureUniversity Hospitals Cleveland Medical Centertart: 80-50-5722Xijpbvfskm A1c measurementDiabetes: Hemoglobin G5JLPGI HealthcareStart: 03-23-2025 End: 23-66-1485Eventaj encounter fumswpnof96/15/2025 11:00 AM EDT [facility] [place] [facility] [address] [facility] [address] [place] [address] Abraham Cesar MD [address] [facility] [address] [place] [address] [facility] [place] [facility] MedinceStart: 03-07-2025 End: 45-81-3113Qtzqnay encounter procedureNOMS [place] PODStart: 03-02-2025 End: 39-00-8043Pyeixgd encounter procedureNOMS [place] [facility]ar MedinceComment on above:ArrivedStart: 02-11-2025 End: 23-13-9207Blhbkuc encounter procedureNOMS CI FMStart: 23-64-4832KPLSK-19 Vaccine ( season)COVID-19 Vaccine ()[facility] Start: 17-59-3619Pqzovdhzz vaccinationNOMS HealthcareStart: 06-33-7867Zsfycjhadi A1c measurementDiabetes: Hemoglobin V1COCTH HealthcareStart: 12-31-2024 End: 09-63-5990Pymsjbr encounter rjnaislvh75/25/2025 10:30 AM EDT Office Visit [facility] [address] [facility] [address] [place] [address] Nati Virk PA [address] [facility] [address] [place] [address] ArrivedNOMS CI FMComment on above:ArrivedStart: 12-23-2024 End: 91-90-1292Asryycy encounter uzgksikoj70/17/2025 9:15 AM EDT Office Visit [facility] [address] [facility] [address] [place] [address] Abraham Cesar MD [address] [facility] [address] [place] [address] [facility] CI FMStart: 31-26-0083Umrzm BMI ScreeningAdult BMI ScreeningProMorrow County Hospital SystemStart: 28-60-5180Nmrewcx ScreeningTobacco ScreeningProMorrow County Hospital SystemStart: 12-13-2024 End: 04-93-1585Eforoen encounter agnptkyyh22/07/2025 11:00 AM EDT Office Visit [facility] [address] [facility] [address] [place] [address] Abraham Cesar MD [address] [facility] [address] [place] [address] [facility] CI FMStart: 12-07-2024 End: 85-33-8237Hbhpzqq encounter ufwkiqoce17/01/2025 1:10 PM EDT Office Visit [facility] [place] [facility] [address] [place] [address] Narinder Meredith DPM [address] [address] [facility] [place] PODStart: 91-02-2947Sjbbj volume recorder pneumoplethysmographyUniversity Hospitals Cleveland Medical Centertart: 06-03-6432Rodvkyrds vaccinationInfluenza Vaccine (#1)[facility] HealthcareComment on above:Postponed from 02/08/2024 (Patient Refused)Start: 80-90-4183Hyiogjcud for malignant neoplasm of breastMammogramNOGA HealthcareStart: 11-30-2024 End: 07-36-3531Kawolzu encounter awlbljfyl30/24/2025 10:40 AM EDT Office Visit [facility] [place] [facility] [address] [place] [phone] Narinder Meredith DPM [address] [address] [facility] [place] PODStart: 32-90-2086Zmjfplhu screeningDiabetes: Retinopathy ScreeningNOGA HealthcareStart: 22-96-1282Xeizjfbwrt A1c measurement Diabetes: Hemoglobin C1PPCBI HealthcareStart: 58-77-7072T-ray of lumbar spine, four viewsXR lumbar spine AP/LAT/FLX/EXTUniversity Hospitals Cleveland Medical Centertart: 81-60-9136GB Lumbar spine 4 ViewsUniversity Hospitals Cleveland Medical Centertart: 10-13-2024 End: 21-99-7074EZO Skeletal system Views for bone densityDEXA bone density Imaging Routine Estrogen deficiency Expected: 10/13/2024, Expires: 10/13/2025 [facility] Work Phone: Comment on above:Expected: 10/13/2024, Expires: 10/13/2025Start: 10-13-2024 End: 02-42-9005TP Breast - bilateral ScreeningBilateral screening mammogram Imaging Routine Breast screening Expected: 10/13/2024, Expires: 12/13/2025NOMS HealthcareComment on above:Expected: 10/13/2024, Expires: 12/13/2025Start: 10-13-2024 End: 87-53-4159Rkwseiq encounter procedureNOMS CI FMComment on above:Arrived Start: 01-98-5029Uudrm screening for proteinDiabetes: Urine Protein Screening [facility] HealthcareStart: 09-21-2024 End: 54-85-5531Tzwlewn encounter procedureNOMS [place] PODComment on above:Diabetes mellitus due to underlying condition with diabetic polyneuropathy, without long- term current use of insulin ([facility]) (Primary Dx); Pain due to onychomycosis of toenails of both feet; Peripheral venous insufficiencyStart: 09-13-2024 End: 33-28-2334Ojokegf encounter ymhvstxau54/07/2025 1:00 PM EDT Office Visit [facility] [address] [facility] [address] [place] [address] Nati Virk PA [address] [facility] [address] [place] [address] [facility]OM[facility] CI FMStart: 09-03-2024 End: 68-47-0793Xymjbpy encounter lohgrysse49/28/2025 11:30 AM EDT Office Visit [facility] [address] [facility] [address] [place] [phone] Abraham Cesar MD [address] [facility] [address] [place] [address] ArrivedNOMS CI FMComment on above:ArrivedStart: 08-18-2024 Adult BMI ScreeningAdult BMI ScreeningProDecatur Morgan Hospital-Park[facility] Campus Health SystemStart: 08-18-2024 Depression ScreeningDepression ScreeningProDecatur Morgan Hospital-Park[facility] Campus Health SystemStart: 08-18-2024 Tobacco ScreeningTobacco ScreeningProDecatur Morgan Hospital-Park[facility] Health SystemStart: 07-20-2024 Hemoglobin A1c measurementDiabetes: Hemoglobin E8JPMRH HealthcareStart: 83-80-3857Wdwpnuklsy A1c measurementDiabetes: Hemoglobin F4KGOBF Healthcare Start: 01-17-2025Medicare Annual Wellness (AWV)Medicare Annual Wellness (AWV) [facility]OM[facility] HealthcareStart: 31-59-4349Syahjzhrardd Vaccine: 65+ Years (1 - PCV) Pneumococcal Vaccine: 65+ Years (1 - PCV)[facility] HealthcareComment on above: Postponed from 1958 (Patient Refused)Start: 87-81-0378Nmwdlbpaafpe Vaccine: 65+ Years (1 of 2 - PCV)Pneumococcal Vaccine: 65+ Years (1 of 2 - PCV) [facility] HealthcareComment on above:Postponed from 1958 (Patient Refused) Start: 98-01-2267Rdpbmwgib for malignant neoplasm of colonColorectal Cancer ScreeningNOMS HealthcareComment on above:Postponed from 1952 (Patient Refused)Start: 06-24-2024 End: 72-81-3442Udrsrte encounter ixrphbqiu07/16/2025 4:00 PM EST Office Visit [facility] [address] [facility] [address] [place] [address] Narinder Meredith DPM [address] [facility] [address] [place] [address] [facility] CI PODIATRYStart: 06-17-2024 End: 62-02-8533Uluyklj encounter uxmemabgj26/09/2025 10:30 AM EST Appointment [facility] [address] [facility] [address] [place] [address]TvsZgbsua [facility] - NeurophysiologyStart: 06-15-2024 End: 87-75-2653Uyvvokl encounter rwlozuqgp26/07/2025 11:00 AM EST Office Visit [facility] [address] [place] [address], [place] [address] Casey العلي MD [address] [facility], [address], [address], [address] [place] [phone] (Work) [facility] Start: 06-14-2024 End: 93-53-1594Tcwtpzs encounter dkxydzlix43/06/2025 11:00 AM EST Office Visit [facility] [address] [facility] [address] [place] [phone] Abraham Cesar MD [address] [facility] [address] [place] [address] [facility] CI FMStart: 94-46-5108Kjorlgyu identified in Urine by CultureUrine Morrow County Hospitaltart: 77-95-9351Qiszx cultureUniversity Hospitals Cleveland Medical Centertart: 61-29-9449Cxpbabskcz A1c measurementDiabetes: Hemoglobin I5OHWQOHermann Area District HospitalStart: 54-72-5935ZdujbktxpUniversity Hospitals Cleveland Medical Centertart: 05-12-2024 End: 32-08-2021XDYNTOZ TRACT INFECTION (HTRX)URINARY TRACT INFECTION (HTRX) Lab Routine Burning with urination Expected: 05/12/2024 (Approximate), Expires: 05/12/2025NOTwo [facility] Work Phone: Comment on above:Expected: 05/12/2024 (Approximate), Expires: 05/12/2025Start: 85-97-8914Tbmfgmcfpg A1c measurementDiabetes: Hemoglobin S5TBZBMHermann Area District HospitalStart: 04-15-2024 End: 78-97-7014Ybmdcik encounter svxharzdw35/07/2024 3:50 PM EST Office Visit [facility] [address] [place] [address] [place] [address] Narinder Meredith DPM [address] [facility] [address] [place] [address] [facility] CI PODIATRYStart: 13-19-6594Fkgdobk referral [facility] Work Phone: Start: 04-02-2024 End: 33-30-2215Mjkevbv encounter fzgfvtpqo42/25/2024 11:00 AM EDT Office Visit [facility] [address] [facility] [address] [place] [address] Abraham Cesar MD [address] [facility] [address] [place] [address] [facility] CI FMStart: 03-29-2024 End: 87-38-2955Wjtbaxa encounter azpuosuio49/21/2024 2:00 PM EDT Office Visit [facility] [address] [facility] [address] [place] [address] Nati Virk PA [address] [facility] [address] [place] [address] ArrivedNOMS CI FMComment on above:ArrivedStart: 96-49-9340Lnzic screening for proteinDiabetes: Urine Protein ScreeningNOGA HealthcareStart: 03-08-2024 End: 63-11-3625pfyxnojiehCNLF CI PTComment on above:ArrivedStart: 03-05-2024 End: 01-28-4365kypokvukya79/27/2024 10:30 AM EDT Treatment [facility] [address] [facility] [address] [place] [address] Antolin Mckay PTANOMS CI PTStart: 03-03-2024 End: 77-83-9046hmufzlgsiq43/25/2024 1:00 PM EDT Treatment [facility] [address] [facility] [address] [place] [address] Silva Rhoades PTNOMS CI PTStart: 03-01-2024 End: 15-55-4866Uyxhygt encounter taurldjwj94/23/2024 11:30 AM EDT Office Visit [facility] [address] [place] [address] [place] [address] Abraham Cesar MD [address] [place] [address] [place] [address] NOM[facility] CI FMStart: 02-26-2024 End: 70-14-1138epvvdsqtrs95/19/2024 1:00 PM EDT Treatment [facility] [address] [place] [address] [place] [address] Antolin Mckay PTANOMS CI PTStart: 02-24-2024 End: 44-96-4693smhenodbwp97/17/2024 11:30 AM EDT Treatment [facility] [address] [place] [address] [place] [address] Antolin Mckay PTANOMS CI PTStart: 02-20-2024 End: 58-05-3173jqyixviuny72/13/2024 3:00 PM EDT Treatment [facility] [address] [place] [address] [place] [address] Antolin Mckay PTANOMS CI PTStart: 02-18-2024 End: 67-14-9157ixqciemdqb33/11/2024 11:00 AM EDT Treatment [facility] [address] [place] [address] [place] [address] Silva Rhoades PTNOMS CI PTStart: 02-17-2024 End: 33-32-6063fqahqlsbuv37/10/2024 10:30 AM EDT Treatment [facility] [address] [place] [address] [place] [address] Silva Rhoades PTNOMS CI PTStart: 02-13-2024 End: 36-52-3139zrwhwjegnt61/06/2024 12:00 PM EDT Treatment [facility] [address] [place] [address] [place] [address] Antolin Mckay PTANOMS CI PTStart: 02-11-2024 End: 69-44-4240imaxwaocww02/04/2024 11:00 AM EDT Treatment [facility] [address] [place] [address] [place] [address] Silva Rhoades PTNOMS CI PTStart: 67-93-7815Piqjeggej vaccinationNOMS HealthcareStart: 02-05-2024 End: 08-99-0378Trrufna encounter cavudwkmc63/29/2024 3:20 PM EDT Office Visit [facility] [address] [place] [address] [place] [address] Narinder Meredith, DPMona [address] [facility] [address] [place] [address] [facility] CI PODIATRYStart: 29-93-6875GghdhLaura Lawson 4wks Io Eyl OdCVP Physicians Work Phone: Start: 02-05-2024 End: 31-95-2438nwijgwshvx74/29/2024 10:00 AM EDT Treatment [facility] [address] [place] [address] [place] [address] Naye Talbert PTANOMS CI PTStart: 01-29-2024 End: 78-45-6266dcbcvdmcpz60/22/2024 12:30 PM EDT Treatment [facility] [address] [facility] [address] [place] [address] Silva Rhoades PTNOMS CI PTStart: 12-15-2023 End: 76-35-9823Tjzgyfe encounter xksbcqgak42/08/2024 11:00 AM EDT Office Visit [facility] [address] [place] [phone] Casey العلي MD [address] [place] [address], [address], [address], [address] [place] [phone] (Work) [facility] Start: 88-81-7151Uhlbaiudc vaccinationInfluenza Vaccine (#1)[facility] Comment on above:Postponed from 02/07/2023 (Patient Refused)Start: 11-07-2023 Screening for malignant neoplasm of breastMammogramNOMS HealthcareStart: 76-96-9899Kgwopvoy screeningDiabetes: Retinopathy ScreeningNOGA HealthcareStart: 91-69-0601Rbozkqd cessation educationTobacco cessation counselingCVP Physicians Start: 91-53-3466Ourheoozrs A1c measurementDiabetes: Hemoglobin R3CZXNY HealthcareStart: 09-24-2023 End: 55-55-1932Hutihzf encounter tyatiljkg68/17/2024 11:00 AM EDT Office Visit [facility] [address] [facility] [address] [place] [address] Abraham Cesar MD [address] [facility] [address] [place] [address] [facility] CI FMStart: 09-23-2023 End: 30-38-6024Wjwkgaz encounter kcdmjxhga30/16/2024 1:00 PM EDT Procedure Visit [facility] [address] [place] [address] [place] [address] Theodore Cisse DPM [address] [place] [address] [place] [address] [facility] SWS PODIATRYStart: 08-19-2023 End: 25-93-3890Xkttjcm encounter yuwegvohm29/12/2024 11:30 AM EDT Office Visit [facility] [address] [place] [phone] Robbi Uribe MD [address] [place] [address], [address], [address], [address] [place] [address] [facility] NeurologyStart: 07-30-2023 End: 41-10-1016Gmyciio encounter slapfxcuy92/21/2024 11:30 AM EST Office Visit [facility] [address] [facility] [address] [place] [address] Abraham Cesar MD [address] [facility] [address] [place] [address] [facility] CI FMStart: 07-21-2023 End: 58-69-5722Bovhabd encounter qyoxgfjbl47/12/2024 10:30 AM EST Office Visit [facility] [address] [facility] [address] [place] [address] Abraham Cesar MD [address] [facility] [address] [place] [address] ArrivedNOMS CI FMComment on above:ArrivedStart: 02-07-2023 Influenza vaccinationInfluenza VaccineSelect Medical Specialty Hospital - Columbusca [facility] SystemStart: 04-03-2022 [facility] Centertart: 13-19-1203Gvgnuiep admissionUniversity Hospitals Cleveland Medical Centertart: 05-80-8156Zunnypez to clinical allergistUniversity Hospitals Cleveland Medical Centertart: 17-28-9484UovyksalzUniversity Hospitals Cleveland Medical Centertart: 55-84-5006Mrgstjvp Assisted Procedure of Trunk RegionComputer Assisted Procedure of Trunk RegionUniversity Hospitals Cleveland Medical Centertart: 26-50-1619Vdwwqvpt of Lumbar Vertebral Disc, Open ApproachExcision of Lumbar Vertebral Disc, Open ApproachUniversity Hospitals Cleveland Medical Centertart: 20-28-0966Rbgikd of 2 or more Lumbar Vertebral Joints with Interbody Fusion Device, Anterior Approach, Anterio r Column, Open ApproachFusion of 2 or more Lumbar Vertebral Joints with Interbody Fusion Device, Anterior Approach, Anterior Column, Open Approach [facility] Centertart: 67-03-2612Isojeq of 2 or more Lumbar Vertebral Joints with Synthetic Substitute, Posterior Approach, Posterior Column, Open ApproachFusion of 2 or more Lumbar Vertebral Joints with Synthetic Substitute, Posterior Approach, Posterior Column, Open ApproachUniversity Hospitals Cleveland Medical Centertart: 29-24-3189Eyvauqupimit of Recombinant Bone Morphogenetic Protein into Joints, Open ApproachIntroduction of Recombinant Bone Morphogenetic Protein into Joints, Open ApproachUniversity Hospitals Cleveland Medical Centertart: 81-27-7530Yexs energy X-ray absorptiometryXR dexa axial skeleton [facility] Centertart: 01-09-2022 End: 95-68-8787Drodmhm encounter procedureDeparted Knox Community HospitalCenter for Breast CareStart: 82-12-2799Efdx Risk ScreeningFall Risk ScreeningUNC Health Johnstontart: 43-62-4280Xdprssryvsoljv of varicella zoster vaccineZoster (Shingles) Vaccine (1 of 2)[facility] Johnstontart: 36-70-1920QTbU,Tdap and Td Vaccines (1 - Tdap)DTaP,Tdap and Td Vaccines (1 - Tdap)[facility] Johnstontart: 43-23-4760Okpqckvzqwco Vaccine: 65+ Years (1 of 2 - PCV)Pneumococcal Vaccine: 65+ Years (1 of 2 - PCV)[facility] HealthcareStart: 60-44-0807Ojkmb BMI Follow Up PlanAdult BMI Follow Up PlanUNC Health Johnstontart: 96-94-1229Pcpjt BMI ScreeningAdult BMI ScreeningUNC Health Johnstontart: 47-82-6307Ogbklrof foot examinationDiabetic Foot ExamProSt. Mary's Medical Centertart: 24-05-4848Ttfswqekhg ScreeningDepression ScreeningUNC Health Johnstontart: 57-41-9470Lihpesv ScreeningTobacco ScreeningUNC Health Johnstontart: 33-03-5162RHvV/Tdap/Td Vaccines (1 - Tdap)DTaP/Tdap/Td Vaccines (1 - Tdap)[facility] HealthcareStart: 11-60-9073Oeuxpxuusyfn Vaccine: 65+ Years (1 of 2 - PCV)Pneumococcal Vaccine: 65+ Years (1 of 2 - PCV)[facility] HealthcareStart: 74-06-5015Akrrbdzs screeningDiabetic Ophthalmology ExamMercy Health Kings Mills Hospital Start: 06-17-1953Medicare Annual Wellness VisitMedicare Annual Wellness Visit [facility] Johnstontart: 80-30-8824Zfopfryvt for malignant neoplasm of colonNOMS HealthcareBLOOD CULTURE 1BLOOD CULTURE 1 Lab Routine 06/13/2024 6:30 AM ESTNOGA HealthcareBLOOD CULTURE 2BLOOD CULTURE 2 Lab Routine 06/13/2024 7:02 AM ESTJORDAN VALLEY MED[facility] Healthcare End: 13-65-7635DHU NCVEMG NCV Neurology Routine Bilateral carpal tunnel syndrome Diabetic polyneuropathy associated with diabetes mellitus due to underlying condition ([facility]) 1 Occurrences starting 12/15/2023 until 12/14/2024[facility] Work Phone: Comment on above:1 Occurrences starting 12/15/2023 until 12/14/2024MR Lumbar spine WO contrastMR lumbar spine wo contrast Imaging Routine Right lumbar radiculopathy Ordered: 03/15/2024[facility] Work Phone: Comment on above:Ordered: 03/15/2024atient Education [facility] Work Phone: Patient referralThe Surgical Hospital At [facility]tr Work Phone: Pulse volume recorder pneumoplethysmographyAdventHealth Connerton Payers DatePayer CategoryPayerPolicy [id number] Health Insurance [id number] 2018Medicare [id number] [id number] [id number] [id number] 2.0.4.64862[id number] 2.16840.1.237407.[id number] 2.16.840.1.194859.3.57[id number] 2.16.840.1.925864.3.57[id number] 2.16.840.1.153572.3.57[id number] 2.16.840.1.185081.3.57[id number] 2.16.840.1.744365.3.57[id number] 2.16.840.1.306824.3.57[id number] 2.16.840.1.957904.3.579.2.58229-26-3356Pvtyyas32947202 2.16.840.1.255610.3.579.2.20600-13-2829Blstqrd82737871 2..840.1.285691.3.579.2.10554-19-0954Pfdtmyi19396710 2..840.1.252077.3.579.2.46881-08-7225Hvpimhk13101355 2.16.840.1.737347.3.579.2.49296-93-4699Fysvvjp60623205 2..840.1.924551.3.579.2.05947-47-9602Jqxtifp72924341 2.16.840.1.824796.3.579.2.03144-22-4437Yxgehjv89048957 2.16.840.1.479000.3.579.2.20874-77-6811Dyvgzuv54669037 2.16.840.1.654093.3.579.2.95868-31-0488Ibnmppr05871936 2.16.840.1.968416.3.579.2.672940-05-6120Xnywyjs58451929 2.16.840.1.265578.3.57[id number] 2.16.840.1.528482.3.57[id number] 2..840.1.778826.3.579.[id number] 2.16.840.1.124890.3.57[id number] 2..840.1.633769.3.579.[id number] 2..840.1.186988.3.57[id number] 2.840.1.835434.3.57[id number] 2.840.1.463876.3.57[id number] 2.840.1.601556.3.579.[id number] 2..840.1.803622.3.57[id number] 2..840.1.945163.3.57[id number] 2.840.1.198678.3.579.2.020369-36-2786Mucgnqh6662647 2.840.1.048770.3.579.[id number] 2..840.1.137368.3.579.2.661594-75-4707Mhqvhdm7346623 2.16.840.1.212882.3.579.2.[id number] 2.16.840.1.545070.3.579.2.[id number] 2..840.1.524459.3.579.2.963807-74-3401Wtajkvb7209475 2.16.840.1.062420.3.57[id number] 2.16.840.1.490646.3.5[id number] 2.16.840.1.5[id number] 2.16.840.1.271902.3.579.2.531 [id number] 2.16.840.1.2[id number] 2.16.840.1.5[id number] 2.16.840.1.777110.3.579.2.531 [id number] 2.840.1.70[id number] 2.840.1.731883.3.579.2.531 Social History DateTypeDetailFacilityStart: 01-12-2023 End: 16-41-7399Brm Assigned At [facility] HealthcareStart: 32-13-9695Qzd Assigned At [facility]tart: 03-05-2022 End: 52-92-2455Xntbjau smoking status NHISNever smoked tobacco (finding) [facility]: 12-20-2022 End: 42-21-6694Tdmyyyv use and exposureSmokeless tobacco non-userNOGA Healthcare Start: 07-21-2023 End: 04-38-6912Xtytqgy intakeLifetime non-drinker (finding)[facility] HealthcareStart: 01-12-2023 End: 70-94-8938Clllpxy of Social functionNOGA HealthcareWithin the last year, have you been afraid of your partner or ex-partner?NoNOMS HealthcareAre you now , , , , never or living with a partner? Living with partnerNOGA HealthcareHow often to you have a drink containing alcohol?NeverJORDAN [facility] HealthcareStart: 56-26-6532Ria many standard drinks containing alcohol do you have on a typical day?Patient does not drinkNOMS HealthcareDo you feel stress - tense, restless, nervous, or anxious, or unable to sleep at night because yourmind is troubled all the time - these days [OSQ]Not at allNOMS Healthcare(I/We) worried whether (my/our) food would run out before (I/we) got money to buy more.Never trueNOGA HealthcareStart: 46-16-3281Rcauqwh Comment Caffeine: 1-2 cups per dayJORDAN [facility]LEY [facility] HealthcareStart: 96-60-4789Wwy Assigned At Not on fileJORDAN [facility]LEY [facility] HealthcareStart: 03-31-2025 End: 66-12-4427Zgwtpu-related behavior (observable entity)Caffeine Use Details [facility] PhysiciansStart: 82-95-3717Asimikx use and exposureNon-Smoking Tobacco Use DetailsCVP PhysiciansDo you belong to any clubs or organizations such as judaism groups, unions, fraternal or athletic groups, or school groups?YesNOMS HealthcareAre you now , , , , never or living with a partner?Never marriedJORD[facility] HealthcareStart: 06-14-2024 End: 29-42-0153BykNvjsck (finding)[facility] HospitalT[facility] smoking status NHISTobacco smoking consumption unknownZanesville City [facility] Start: 08-19-2023 End: 43-28-1996Wtlzxvbli beverage intakeEx-drinker (finding)[facility] SystemNEGATED: Highlighted rowStart: 76-23-5393Gevuwlq smoking status NHIS Unknown if ever smokedCVP PhysiciansNEGATED: Highlighted rowAlcohol intake Alcohol Use DetailsCVP PhysiciansNEGATED: Highlighted rowStart: 01-08-2024 History of tobacco useCurrent non-smokerCVP Physicians Medical Equipment Procedure CodeEquipment CodeEquipment Original TextEquipment IdentifierDates Fusion, spine, lumbar, XLIFSTRATOFUSE DBM 10CCFDAStart: 19-02-3791Rybfcp, spine, lumbar, XLIFBone-screw internal spinal fixation system, non-sterile +[id number] FDAStart: 42-49-8844Dusinx, spine, lumbar, XLIFOrthopaedic bone screw, non-bioabsorbable, non-sterile+[id number] FDAStart: 49-92-2045Vbdspo, spine, lumbar, XLIFOrthopaedic instrument surgical connector+[id number] FDA Start: 32-26-1928Eayoeg, spine, lumbar, XLIFBone-screw internal spinal fixation system, non-sterile+[id number] FDAStart: 53-89-1913Ehylch, spine, lumbar, XLIFSTRATOFUSE DBM 5CCFDAStart: 91-64-8232Pwxcgw, spine, lumbar, XLIFSpinal fusion graft kit()[id number] FDAStart: 03-18-2022 Fusion, spine, lumbar, XLIFMetallic spinal fusion cage, non-sterile ()[id number] FDAStart: 88-50-4352Eujuwo, spine, lumbar, XLIFMetallic spinal fusion cage, non-sterile()[id number] FDAStart: 52-29-6406Knsqkf, spine, lumbar, XLIFSTRATOFUSE DBM 10CCFDAStart: 28-28-5229Hpvkdu, spine, lumbar, XLIFSTRATOFUSE DBM 5CCFDAStart: 58-66-4675Aeqrys, spine, lumbar, XLIFSTRATOFUSE DBM 10CCFDAStart: 47-98-0046Tfuecr, spine, lumbar, XLIFSTRATOFUSE DBM 5CCFDA Start: 25-94-8599Ovkjzo, spine, lumbar, XLIFSTRATOFUSE DBM 10CCFDAStart: 70-73-8083Bhjfrc, spine, lumbar, XLIFSTRATOFUSE DBM 5CCFDAStart: 03-18-2022 Fusion, spine, lumbar, XLIFSTRATOFUSE DBM 10CCFDAStart: 82-33-7200Bubsus, spine, lumbar, XLIFSTRATOFUSE DBM 5CCFDAStart: 17-17-1215Ovguhk, spine, lumbar, XLIF STRATOFUSE DBM 10CCFDAStart: 93-08-3986Hgxlcu, spine, lumbar, XLIFSTRATOFUSE DBM 5CCFDAStart: 48-14-0288Przcpw, spine, lumbar, XLIFSTRATOFUSE DBM 10CCFDAStart: 72-33-9730Ttvfuy, spine, lumbar, XLIFSTRATOFUSE DBM 5CCFDAStart: 03-18-2022 Fusion, spine, lumbar, XLIFSTRATOFUSE DBM 10CCFDAStart: 34-99-5019Tnurbr, spine, lumbar, XLIFSTRATOFUSE DBM 5CCFDAStart: 33-99-6232Iguvat, spine, lumbar, XLIF STRATOFUSE DBM 10CCFDAStart: 85-40-9218Jioefk, spine, lumbar, XLIFSTRATOFUSE DBM 5CCFDAStart: 99-93-8606Npqymc, spine, lumbar, XLIFSTRATOFUSE DBM 10CCFDAStart: 04-96-7911Emqvtk, spine, lumbar, XLIFSTRATOFUSE DBM 5CCFDAStart: 03-18-2022 Fusion, spine, lumbar, XLIFSTRATOFUSE DBM CCFDAStart: 21-57-0307Bycchm, spine, lumbar, XLIFSTRATOFUSE DBM 5CCFDAStart: 04-33-9650Oevmjc, spine, lumbar, XLIF STRATOFUSE DBM 10CCFDAStart: 99-23-1648Tpbaxd, spine, lumbar, XLIFSTRATOFUSE DBM 5CCFDAStart: 54-16-3790Tmnxoj, spine, lumbar, XLIFSTRATOFUSE DBM 10CCFDAStart: 97-78-3409Rirxzo, spine, lumbar, XLIFSTRATOFUSE DBM 5CCFDAStart: 03-18-2022 Fusion, spine, lumbar, XLIFSTRATOFUSE DBM 10CCFDAStart: 20-03-8890Qfvyfm, spine, lumbar, XLIFSTRATOFUSE DBM 5CCFDAStart: 46-08-5355Jpdnye, spine, lumbar, XLIF STRATOFUSE DBM 10CCFDAStart: 06-78-5108Ycuake, spine, lumbar, XLIFSTRATOFUSE DBM 5CCFDAStart: 88-56-314824247034Gwfsn: each by Other route in the morning and 1 each at noon and 1 each in the evening and 1 each beforebedtime. Take before meals. ONE TOUCH ULTRA STRIPS DX: [id number]: 07-09-2023 Inject under the skin 2 (two) times a day. Use as [id number] (two) times a day. Use as [id number] DIRECTED UNDER THE SKIN TWO TIMES [id number]: each by Other route in the morning and 1 each in the evening and 1 each before bedtime. ONE TOUCHULTRA STRIPS DX: e11.65. [id number]: 03-01-2024 End: 25-45-3155KZP DIRECTED ONCE [id number]: each by Other route in the morning and 1 each in the evening and 1 each before bedtime. ONE TOUCHULTRA STRIPS DX: [id number]: 12-08-2023 End: 15-31-1992JGQW of LAD Unknown 07/07/24 Unknown Left Anterior Descending Coronary ArteryFDAStart: each by Other route in the morning and 1 each in the evening and 1 each before bedtime. ONE TOUCHULTRA STRIPS DX: e11.65. [id number]: 70-14-8948TIGQ ONCE IN THE MORNING,IN THE EVENING,AND BEFORE BEDTIME*E11.65*[id number]: 10-13-2024 Goals DatePatient GoalDesired Activity/State Functional Status SyxvIdoeopllbrFlzyyeIeuuqwsu85-55-4335Akehkeevlr statusPatient Not at [facility] Work Phone: [phone]) 430-420907655951-00-0441Zrweeta Health Questionnaire 2 item (PHQ-2) [Reported][facility] HospitalSxvvrsmsfy40-22-1141Hzsflqt Health Questionnaire 2 item (PHQ-2) [Reported][facility] HospitalUfcqrcohql75-04-9102Ioalnkk Health Questionnaire 2 item (PHQ-2) [Reported][facility] HospitalOzkkclwsyt69-10-9562Yzqdhrh Health Questionnaire 2 item (PHQ-2) [Reported][facility] HospitalDggqzhkmkz31-92-2764Soerguxtfa StatusNoMer[facility]01-29-2025Functional StatusMercy Health Willard Hospital09-16-2024Total score [AUDIT-C]0 02/23/2024 9:18 AM EDT Mychart, GenericNOTwo [facility] 44-61-6471Vvg often do you have a drink containing alcohol?Never 02/23/2024 9:18 AM EDT Mychart, Generic NeverNOTwo [facility] HospitalJvcdkdzqrj65-48-2551Gpmflqigwy statusPatient does not drink 02/23/2024 9:18 AM EDT Mychart, Generic Patient does not drink [facility] HospitalKxmkpqbcgp39-09-4416Ous often do you have 6 or more drinks on 1 occasion? Never 02/23/2024 9:18 AM EDT Mychart, Generic NeverHermann Area District HospitalXfrrcbbojh63-03-5639 Functional statusPatient is Progressing Toward [facility] Work Phone: [phone]sdftgiq statusPatient is Progressing Toward [facility] Work Phone: 1(978) [phone]budqhx statusPatient at [facility] Work Phone: 1([phone]) 542-496709-682949-07-1328Layocmaeml statusDisability Status [facility] at [facility] Work Phone: Mental Status HtmwWcaycyywplQqnxtvKtphpcvz68-36-8925Fgbtkqpax functionCognitive Status Patient at [facility] Work Phone: [phone] 411-998410-365561-32-6893Gnpfexzcn functionCognitive Status [facility] at [facility] Work Phone: 1(785) 737-469010-888968-88-8652Dxrhwwehs functionCognitive Status [facility] at [facility] Work Phone: [phone]) [phone]Dfayzhmzy functionCognitive Status [facility] at [facility] Work Phone: Clinical Notes 09-25-2021 to 04-16-2025 Note Date & CjefNuedUorsvzhu20-12-4230 Telephone encounter Note* Telephone Encounter - HOLLEY White - 04/16/2025 1:33 PM EST Omeprazole sent. [facility] HospitalTwvgvczcjq38-69-3204 Miscellaneous Notes* Telephone Encounter - HOLLEY White - 04/16/2025 1:33 PM EST Omeprazole sent. documented in this encounterHermann Area District HospitalUipjjotuav44-43-5611 NoteUT Cardiology - [facility] Subjective Laura Lawson is a 74 y.o. year old female patient being seen for 1 month follow up chronic systolic heart failure, CAD, PAF, and hypertension. Spironolactone and torsemide were increased at last month's visit. She was admitted last week to [facility] and torsemide was increased to 20mg bid upon discharge. Her friend says the [facility] (SNF) is taking care of her LE wound - not wound care anymore. Patient denies chest pain, SOB, palpitations, and lightheadedness. She has apt with neurosurgeon in [place] on 04/21/2025. Patient Active Problem List Diagnosis Allergic rhinitis Angiomyolipoma of kidney Benign essential hypertension Cerebrovascular disease Chronic foot ulcer (CMS/HCC) Coronary atherosclerosis Decreased estrogen level Diabetic retinopathy associated with type 2 diabetes mellitus (CMS/HCC) Diaphragmatic hernia Difficulty walking Dyspnea on exertion Generalized osteoarthritis Gout History of arthritis History of hysterectomy Hyperglycemia due to type 2 diabetes mellitus (CMS/HCC) senior care current use of insulin (CMS/HCC) Low back [...] acid nephrolithiasis NSTEMI (non-ST elevated myocardial infarction) ([facility]) Acute exacerbation of CHF (congestive heart failure) ([facility]) COVID-19 Acquired spondylolisthesis Acute on chronic diastolic heart failure ([facility]) Coronary artery disease (CAD) excluded Diastolic dysfunction GERD (gastroesophageal reflux disease) History of carpal tunnel surgery of right wrist Hyperlipidemia Impaired mobility and endurance Localized edema Lumbar radiculopathy Morbid obesity with body mass index (BMI) of 45.0 to 49.9 in adult ([facility]) Paresthesia of skin Primary osteoarthritis of both knees S/P drug eluting coronary stent placement Ulcer of foot due to type 2 diabetes mellitus ([facility]) Pericardial effusion CAD in [place] tribe artery Coronary artery disease Coronary artery disease involving [place] coronary artery of [place] tribe heart with other form of angina pectoris Chronic systolic heart failure ([facility]) Combined forms of age-related cataract of both eyes History of lumbar fusion Nonexudative age-related macular degeneration Thyroid disease Angina pectoris Lumbar stenosis with neurogenic claudication Acquired absence of both cervix and uterus Acute cystitis without hematuria Carpal tunnel syndrome, left upper limb Cervicalgia Chronic kidney disease, stage 3a ([facility]) Cognitive communication deficit Dysphagia, oral phase History of DVT in adulthood Impaired skin integrity Mild mitral regurgitation Muscle weakness (generalized) Other chronic pain Pain in left knee Type 2 diabetes mellitus with diabetic chronic kidney disease ([facility]) Unspecified systolic (congestive) heart failure ([facility]) Cardiomyopathy ([facility]) Moderate nonproliferative diabetic retinopathy of both eyes without macular edema associated with type 2 diabetes mellitus ([facility]) Non compliance w medication regimen Ataxia Blister of right foot Cervical myelopathy ([facility]) Edema of both lower extremities Neuropathic pain Presence of automatic (implantable) cardiac defibrillator Presence of cardiac pacemaker Pressure injury of right buttock, stage 3 ([facility]) Primary osteoarthritis of left hip Sacroiliitis Trochanteric bursitis, right hip Ulcer of left heel ([facility]) Wound infection Family History Problem Relation Name Age of Onset JABARI disease Mother Heart attack Father Social History Tobacco Use Smoking status: Never Smokeless tobacco: Never Substance Use Topics Alcohol use: Not Currently Drug use: Never HPI Laura is seen in follow-up. She [...] was discharged and is seen in follow-up. (more content not included)... [facility]10-21-2025 Radiology Diagnostic study note [facility] Main [place] [address] [place] [address] CT Scan Report Signed Patient: Laura Lawson MR#: [id number] : 1950 Acct:[id number] Age/Sex: 74 / F ADM Date: Loc: ER Room: Type: [facility] ER Attending Dr: Copies to: Mildred Muñoz APRN~ Ordering Provider: Mildred Muñoz APRN Date of Service: 03/29/25 CT/CT hip RT wo con: lower extremity injury/problem CT RIGHT HIP WITHOUT CONTRAST: CLINICAL HISTORY: Lower extremity injury/right hip pain COMPARISON: None TECHNIQUE: Spiral images were obtained through the right hip.. This CT exam was performed using oneor more following dose reduction techniques: Automated exposure control, adjustment of the mA and/or kV according to patient size, or use of iterative reconstruction technique. FINDINGS: No fracture-dislocation. Iudb-um-qamkqybe degenerative changes right hip. Enthesophyte formation along the greater trochanter noted. Degenerative changes visualized sacroiliac joints. The postsurgical changes prior posterior lumbar vertebral segmentation incompletely evaluated. There is pkmk-ss-zpnkdeeh stool within the rectosigmoid junction. Colonic diverticulosis identified. Evidence of perirectal fat stranding unclear if thisis due to third spacing versus the possibilityof focal colitis. Otherwise diffuse vascular calcifications. Diffuse anasarca. CT/CT hip RT wo con IMPRESSION: Negative acute fracture or dislocation. Greater trochanteric enthesopathy/smwa-dp-vmwgjwhc degenerative changes.. Diffuse anasarca suspected. Haziness along the perirectal fat planes could represent nonspecific third spacing versus proctocolitis. Please correlate with clinical exam findings Impression dictated by: Wets Oglesby M.D. 03/29/2025 4:41 PM Dictation Location: [facility]- Transcribed By: [facility] 03/29/25 164 Dictated By: West Oglesby MD 03/29/25 1633 Signed By: 03/29/25 164 [facility] Work Phone: 1([phone]) 236-470110-07-2025 Evaluation note* Diagnosis Onset Date Resolution Status Admit Date Blister of right foot acuteOctober 2024 11:15amDiabetes mellitus, type 2acuteOctober 2024 11:15amEdema of both lower extremitiesacuteOctober 2024 11:15amImpaired mobility and activities of daily livingacuteOctober 2024 11:15amNeuropathic painacuteOctober 2024 11:15amPressure injury of right buttock, stage 3 acuteOctober 2024 11:15amPressure injury of right ischium, stage 3acute March 15, 2025 11:15amUlcer of left heelacuteOctober 2024 11:15amUlcer of right heelacuteOctober 2024 11:15amVenous insufficiency (chronic) (peripheral)acuteOctober 2024 11:15amVenous stasis dermatitis of both lower extremitiesacuteOctober 2024 11:15amWound infectionacuteOctober 2024 11:15am [facility] Work Phone: 1([phone]) 560-538710-07-2025 Evaluation note* Diagnosis Onset Date Resolution Status Admit Date Blister of right foot acuteOctober 2024 11:15amDiabetes mellitus, type 2acuteOctober 2024 11:15amEdema of both lower extremitiesacuteOctober 2024 11:15amImpaired mobility and activities of daily livingacuteOctober 2024 11:15amNeuropathic painacuteOctober 2024 11:15amPressure injury of right buttock, stage 3 acuteOctober 2024 11:15amPressure injury of right ischium, stage 3acute March 15, 2025 11:15amUlcer of left heelacuteOctober 2024 11:15amUlcer of right heelacuteOctober 2024 11:15amVenous insufficiency (chronic) (peripheral)acuteOctober 2024 11:15amVenous stasis dermatitis of both lower extremitiesacuteOctober 2024 11:15amWound infectionacuteOctober 2024 11:15amBlister of right footacuteOctober 2024 10:22amDiabetes mellitus, type 2acuteOctober 2024 10:22amNeuropathic painacuteOctober 2024 10:22amUlcer of left heelacuteOctober 2024 10:22amUlcer of right heelacute March 16, 2025 10:22amUncontrolled diabetes mellitus type 2 with atherosclerosis of arteries ofacuteOctober 2024 10:22am [facility] Work Phone: 1([phone]) 792-751210-07-2025 Evaluation note* Diagnosis Onset Date Resolution Status Admit Date Blister of right foot acuteOctober 2024 11:15amDiabetes mellitus, type 2acuteOctober 2024 11:15amEdema of both lower extremitiesacuteOctober 2024 11:15amImpaired mobility and activities of daily livingacuteOctober 2024 11:15amNeuropathic painacuteOctober 2024 11:15amPressure injury of right buttock, stage 3 acuteOctober 2024 11:15amPressure injury of right ischium, stage 3acute March 15, 2025 11:15amUlcer of left heelacuteOctober 2024 11:15amUlcer of right heelacuteOctober 2024 11:15amVenous insufficiency (chronic) (peripheral)acuteOctober 2024 11:15amVenous stasis dermatitis of both lower extremitiesacuteOctober 2024 11:15amWound infectionacuteOctober 2024 11:15amBlister of right footacuteOctober 2024 10:22amDiabetes mellitus, type 2acuteOctober 2024 10:22amNeuropathic painacuteOctober 2024 10:22amUlcer of left heelacuteOctober 2024 10:22amUlcer of right heelacute March 16, 2025 10:22amUncontrolled diabetes mellitus type 2 with atherosclerosis of arteries ofacuteOctober 2024 10:22amAcute pain of right hipacuteOctober 2024 5:00pmDiabetes mellitus, type 2acuteOctober 2024 5:00pmImpaired mobility and activities of daily livingacuteOctober 2024 5:00pmVenous insufficiency (chronic) (peripheral)acuteOctober 2024 5:00pm [facility] Work Phone: 1([phone] 344-387110-07-2025 Evaluation note* Diagnosis Onset Date Resolution Status Admit Date Blister of right foot acuteOctober 2024 11:15amEdema of both lower extremitiesacuteOctober 2024 11:15amNeuropathic painacuteOctober 2024 11:15amPressure injury of right ischium, stage 3acuteOctober 2024 11:15amUlcer of left heelacute March 15, 2025 11:15amUlcer of right heelacuteOctober 2024 11:15amVenous stasis dermatitis of both lower extremitiesacuteOctober 2024 11:15amWound infectionacuteOctober 2024 11:15amDiabetes mellitus, type 2resolvedOctober 2024 11:15amImpaired mobility and activities of daily livingresolvedOctober 2024 11:15amPressure injury of right buttock, stage 3resolvedOctober 2024 11:15amVenous insufficiency (chronic) (peripheral)resolvedOctober 2024 11:15amBlister of right footacuteOctober 2024 10:22amNeuropathic painacute March 16, 2025 10:22amUlcer of left heelacuteOctober 2024 10:22amUlcer of right heelacuteOctober 2024 10:22amUncontrolled diabetes mellitus type 2 with atherosclerosis of arteries ofacuteOctober 2024 10:22amDiabetes mellitus, type 2resolvedOctober 2024 10:22amAcute pain of right hipresolved March 29, 2025 5:00pmDiabetes mellitus, type 2resolvedOctober 2024 5:00pmImpaired mobility and activities of daily livingresolvedOctober 2024 5:00pmPressure injury of right buttock, stage 3resolvedOctober 2024 5:00pmVenous insufficiency (chronic) (peripheral)resolvedOctober 2024 5:00pm [facility] Work Phone: 1([phone]) 333-245910-06-2025 NoteUT Cardiology - [facility] Subjective Laura Lawson is a 74 y.o. year old female patient being seen for 1 month follow up. Patient states she's not feeling the best due to it getting harder and harder to get up and down steps. Patient states the leg swelling has gone down, patient states she has been keeping them up. Patient states she her legs are seeping, she is seeing wound care for her heals and buttocks. Patient denies chest pain, SORENSEN, SOB, racing heart/palpitations. Patient states she does sleep a lot. Patient and her friend would like to talk about medication due to a lot of confusion between our office and Dr. Cesar's office. Patient Active Problem List Diagnosis Allergic rhinitis Angiomyolipoma of kidney Benign essential hypertension Cerebrovascular disease Chronic foot ulcer ([facility]/HCC) Coronary atherosclerosis Decreased estrogen level Diabetic retinopathy associated with type 2 diabetes mellitus ([facility]/HCC) Diaphragmatic hernia Difficulty walking Dyspnea on exertion Generalized osteoarthritis Gout History of arthritis History of hysterectomy Hyperglycemia due to type 2 diabetes mellitus ([facility]/HCC) senior care current use of insulin ([facility]) Low back pain Morbid obesity ([facility]) Neoplasm of uncertain behavior of kidney Obstructive sleep apnea syndrome Osteoarthritis of knee Osteoporosis Peripheral venous insufficiency Polyneuropathy due to type 2 diabetes mellitus ([facility] [facility]) Preoperative evaluation to rule out surgical contraindication Pulmonary function studies abnormal Pure hypercholesterolemia Renal mass Skin sensation disturbance Type 2 diabetes mellitus without complication Umbilical hernia Uric acid nephrolithiasis NSTEMI (non-ST elevated myocardial infarction) ([facility]) Acute exacerbation of CHF (congestive heart failure) ([facility]) COVID-19 Acquired spondylolisthesis Acute on chronic diastolic heart failure ([facility]) Coronary artery disease (CAD) excluded Diastolic dysfunction GERD (gastroesophageal reflux disease) History of carpal tunnel surgery of right wrist Hyperlipidemia Impaired mobility and endurance Localized edema Lumbar radiculopathy Morbid obesity with body mass index (BMI) of 45.0 to 49.9 in adult ([facility]) Paresthesia of skin Primary osteoarthritis of both knees S/P drug eluting coronary stent placement Ulcer of foot due to type 2 diabetes mellitus (CMS/HCC) Pericardial effusion CAD in [place] artery Coronary artery disease Coronary artery disease involving [place] coronary artery of [place] heart with other form of angina pectoris Chronic systolic heart failure (CMS/HCC) Combined forms [...] disease (CMS/HCC) Unspecified systolic (congestive) heart failure ([facility]) Cardiomyopathy ([facility]) Moderate nonproliferative diabetic retinopathy of both eyes without macular edema associated with type 2 diabetes mellitus ([facility]) Non compliance w medication regimen Ataxia Family History Problem Relation Name Age of Onset JABARI disease Mother Heart attack Father Social History Tobacco Use Smoking status: Never Smokeless tobacco: Never Substance Use Topics Alcohol use: Not Currently Drug use: Never HPI Laura is seen in follow-up. She [...] NSTEMI and underwent scoring balloon angioplasty to (more content not included)...[facility]09-24-2025 History of Present illness Narrative* Abraham Cesar MD - 03/02/2025 9:30 AM EDT Images from the original note [...] Useas instructed meloxicam (Mobic) 15 MG tablet Take 1 tablet (15 mg) by mouth Daily 100 tablet 3 metoprolol succinate XL (Toprol-XL) 25 MG 24 hr tablet Take 1 tablet (25 mg) by mouth Daily 100 tablet 3 nitroglycerin (Nitrostat) 0.[address] 0.3 mg under the tongue every 5 (five) minutes if needed for chest pain. nystatin (Klayesta) [id number] UNIT/GM powder Apply topically 2 (two) times [...] SACROILIAC JOINT INJECTION Right 05/19/2024 SPINE SURGERY 197616 THYROIDECTOMY TOTAL VAGINAL HYSTERECTOMY Visit Vitals BP [...] weeks with CGM monitor Paroxysmal atrial fibrillation ([facility]) - Dx by Cardiology. Currently in NSR - This office visit was spent in consultation regarding the patient's current medical problems, differential diagnoses, testing/imaging results, and treatment options. Greater than 25 minutes was spent in [id number] consultation and coordination of care. Follow up in about 3 weeks (around 03/23/2025) for DM- A1C. documented in this encounterHermann Area District [id number] History of Present illness Narrative* Abraham Cesar MD - 02/11/2025 10:30 AM EDT Images from the original note [...] DAILY 180 each 3 Continuous Glucose Sensor ([employer] G7 Sensor) misc 1 patch every 14 [...] Useas instructed meloxicam (Mobic) 15 MG tablet Take 1 tablet (15 mg) by mouth Daily 100 tablet 3 metoprolol succinate XL (Toprol-XL) 25 MG 24 hr tablet Take 1 tablet (25 mg) by mouth Daily 100 tablet 3 nitroglycerin (Nitrostat) 0.[address] 0.3 mg under the tongue every 5 (five) minutes if needed for chest pain. nystatin (Klayesta) [id number] UNIT/GM powder Apply topically 2 (two) times [...] SACROILIAC JOINT INJECTION Right 05/19/2024 SPINE SURGERY [id number] THYROIDECTOMY TOTAL VAGINAL HYSTERECTOMY Visit Vitals BP [...] or bring CGM data. documented in this encounterHermann Area District Hos[id number] NoteUT Electrophysiology Consult Note IN Cardiology [facility] Reason for visit: Ischemic cardiomyopathy 01/18/25 Pt has come for device check and noted to be in AF. She had very poor BS control today as per healthcare advisory services manager. Device reveals ongoing AF. Prior HPI: Laura [...] Use: Not At Risk (02/23/2024) [facility] AUDIT-C Frequency of Alcohol Consumption: Never Average [...] file Physical Activity: Inactive (02/23/2024) Re[facility] Exercise Vital Sign Days of Exercise per Week: 0 days Minutes of Exercise per Session: 0 min Stress: No Stress Concern Present (02/23/2024) Received from [facility] [place] [employer] - Occupational Stress Questionnaire Feeling of Stress : Not at all Social Connections: Moderately Isolated (02/23/2024) Received from [facility] Social Connection and Isolation Panel [NHANES] Frequency of Communication with Friends and Family: More than three times a week Frequency of Social Gatherings with Friends and Family: Once a week Attends Confucianist Services: Never Active Member of Clubs or Organizations: Yes Attends Club or Organization Meetings: 1 to 4 times per year Marital Status: Never Intimate Partner Violence: Unknown (04/21/2024) Humiliation, Afraid, Rape, and Kick questionnaire Fear of Current or Ex-Partner: No Emotionally Abused: Not on file Physically Abused: Not on file Sexually Abused: Not on file Depression: Not at risk (12/31/2024) Received from [facility] PHQ-2 Patient Health Questionnaire-2 Score: 0 Housing Stability: Low Risk (04/21/2024) Housing Stability Vital Sign Unable to Pay for Housing in the Last Year: No Number of Times Moved in the Last Year: Not on file Homeless in the Last Year: No Utilities: Not At Risk (04/21/2024) [facility] Utilities Threatened with loss of utilities: No Health Literacy: Adequate Health Literacy (02/23/2024) Received from [facility] B1300 Health Literacy Frequency of need [...] mg Take 1 tab (more content not included)...[facility]07-25-2025 History of Present illness Narrative* HOLLEY hWite - 12/31/2024 10:30 AM EDT Images from the original note [...] medical bed. Admits she has a hard timegetting out of bed so would like to [...] days. 20 capsule 0 Continuous Glucose Sensor (DoseMe G7 Sensor) misc 1 patch every 14 [...] Useas instructed meloxicam (Mobic) 15 MG tablet Take 1 tablet (15 mg) by mouth Daily 100 tablet 3 metoprolol succinate XL (Toprol-XL) 25 MG 24 hr tablet Take 1 tablet (25 mg) by mouth Daily 100 tablet 3 nitroglycerin (Nitrostat) 0.[address] 0.3 mg under the tongue every 5 (five) minutes if needed for chest pain. nystatin (Klayesta) [id number] UNIT/GM powder Apply topically 2 (two) times [...] misc 1 patch every 14 (fourteen) days 6each 3 No current facility-administered medications on file [...] SACROILIAC JOINT INJECTION Right 05/19/2024 SPINE SURGERY [id number] THYROIDECTOMY TOTAL VAGINAL HYSTERECTOMY Visit Vitals BP [...] as prescribed. Continue to keep covered. Continue tofollow up with [facility]. Clean dressing [...] more than 30 degrees most of the timedue to history of Chronic Systolic Congestive Heart Failure. Patient requires a bed height different than a fixed height hospital bed to permit safe transfers to chair, wheelchair or standing position due to inability to ambulate, weakness and wheelchair status. The patient's condition requires frequent change in body position. Dilated cardiomyopathy (HCC) The patient is seeing a medical anthropology director for this condition, treatment is deferred to that specialist. Correspondence from that specialist and any available testing were reviewed during today's visit. Can try Medihoney to areas of irritation along her gluteal region. Follow up for Appointment As Scheduled. documented in this encounterHermann Area District [id number] History of Present illness Narrative* Abraham Cesar MD - 12/23/2024 9:15 AM EDT Images from the original note [...] every day She sees would clinic in [place] for wounds on legs and feet Diabetes [...] Useas instructed meloxicam (Mobic) 15 MG tablet Take 1 tablet (15 mg) by mouth Daily 100 tablet 3 metoprolol succinate XL (Toprol-XL) 25 MG 24 hr tablet Take 1 tablet (25 mg) by mouth Daily 100 tablet 3 nitroglycerin (Nitrostat) 0.[address] 0.3 mg under the tongue every 5 (five) minutes if needed for chest pain. nystatin (Klayesta) [id number] UNIT/GM powder Apply topically 2 (two) times [...] ON MOST PAINFUL AREA ON SKIN ONCE DAILYAS NEEDED FOR PAIN *ON FOR 12HRS/OFF FOR [...] 07/04/2023 CT ANGIOGRAM NECK 07/04/2023 EYE EXAM 2014 Disease:Diabetes mellitus, type 2 HERNIA REPAIR AK ARTHRD ANT INTERBODY MIN DSC LUMBAR 03/18/2022 L3-L5 Anterior Lumbar Interbody Fusion, Pedicle Screw Replacement SACROILIAC JOINT INJECTION Right 05/19/2024 SPINE SURGERY [id number] THYROIDECTOMY TOTAL VAGINAL HYSTERECTOMY Visit Vitals BP [...] ability to rise from a seated position. Thispatient would benefit from a lift chair, one [...] 01/20/2025) for DM- A1C. documented in this encounterHermann Area District [id number] NoteSUBJECTIVE Reason for Visit: Laura Lawson is a [...] Rate 12/13/2024 72 Atrial Rate 12/13/2024 72 AK Interval 12/13/2024 230 QRS DURATION 12/13/2024 142 QT Interval 12/13/2024 432 QTC CALCULATION(BAZETT) 12/13/2024 473 P [place] 12/13/2024 -1 R-[place] 12/13/2024 151 T Wave [place] 12/13/2024 12 Ventricular Rate 12/13/2024 82 Atrial Rate 12/13/2024 82 AK Interval 12/13/2024 166 QRS DURATION 12/13/2024 174 QT Interval 12/13/2024 452 QTC CALCULATION(BAZETT) 12/13/2024 528 P [place] 12/13/2024 68 R-[place] 12/13/2024 159 T Wave [place] 12/13/2024 4 I have personally reviewed and anaylzed the following laboratory results above. These findings have been analyzed in the context of the patient's clinical presentation. Cardiovascular Diagnostic Studies: 07/07/2024 coronary angiogram ([facility]): PROCEDURE PHYSICIAN: Bhargav Rosado MD 04/19/2024 Clinical Presentation: 73 y.o. Female with history of CAD s/p multivessel PCI 10/2023 ( (more content not included)...[facility]07-07-2025 NoteDUAL CHAMBER ICD IMPLANT PROCEDURE NOTE DATE OF [...] using modified seldinger technique using a 5 Panamanian micro-puncture needle on two occasions and 0.35 [...] for the device above the muscle. 6 [place]ian Safesheaths were placed over the wire. Since the patient had IVCD, the decision was made to proceed with a dual-chamber ICD. The intention was to place the ICD lead in septal location to see whether we could have left fascicular capture resulting in a narrow QRS. To accommodate this Wiggins sheath was utilized. An active fixation Biotronik pacing lead was then delivered through the sheath to the right ventricle. After confirmation of lead position on orthogonal views (MATTSON and SETSWANA) to confirm septal position, the screw was [...] lead position on orthogonal views (MATTSON and SETSWANA), the screw was activated. Good sensing parameters, [...] for any concerns. Misty Edwards MD Cardiac ElectrophysiologyUnWilson Health07-07-2025 Note Patient: Laura Lawson Procedure Information Date/Time: 12/13/24 1130 Procedure: Implant ICD - biventricular Location: [facility] FINAL CIGAR AND BOX EXAMINER 1 / [facility] (Cath) Providers: Misty Edwards MD Clinical information reviewed: Physical Exam Airway Mallampati: II TM distance: >3 FB Neck ROM: full Cardiovascular Dental Pulmonary Neurological Abdominal Anesthesia Plan ASA 3 CSE Anesthetic plan and risks discussed with patient. Use of blood products discussed with patient who. Additional Equipment RequestsUnWilson Health07-01-2025 History of Present illness Narrative* Narinder Meredith DPM - 12/07/2024 1:10 PM EDT Patient: Laura Lawson : 1950 [...] 3 BD Insulin Syringe U/F 31G X 16 [...] chest pain., Disp: , Rfl: nystatin (Klayesta) [id number] UNIT/GM powder, Apply topically 2 (two) times [...] Strain: Low Risk (04/21/2024) Received from [facility] Overall Financial Resource Strain (CARDIA) Difficulty of Paying Living Expenses: Not hard at all Food Insecurity: No Food Insecurity (04/21/2024) Received from [facility] Hunger Vital Sign Within the past 12 months, you worried that your food would run out before you got the money to buymore.: Never true Ran Out of Food in the Last Year: Not on file Transportation Needs: No Transportation Needs (04/21/2024) Received from [facility] Transportation In the past 12 months, has lack of transportation kept you from medical appointments or from getting medications?: No Lack of Transportation (Non-Medical): Not on file Physical Activity: Inactive (02/23/2024) Exercise Vital Sign Days of Exercise per Week: 0 days Minutes of Exercise per Session: 0 min Stress: No Stress Concern Present (02/23/2024) [place] [employer] - Occupational Stress Questionnaire Feeling of Stress : Not at all Social Connections: Moderately Isolated (02/23/2024) Social Connection and Isolation Panel [NHANES] Frequency of Communication with Friends and Family: More than three times a week Frequency of Social Gatherings with Friends and Family: Once a week Attends Confucianist Services: Never Active Member of Clubs or Organizations: Yes Attends Club or Organization Meetings: 1 to 4 times per year Marital Status: Never Intimate Partner Violence: Unknown (04/21/2024) Received from [facility] Humiliation, Afraid, Rape, and Kick questionnaire Fear of Current or Ex-Partner: No Emotionally Abused: Not on file Physically Abused: Not on file Sexually Abused: Not on file Housing Stability: Low Risk (04/21/2024) Received from [facility] Housing Stability Vital Sign In the last 12 months, was there a time when you were not able to pay the mortgage or rent on time?: No Number of Times Moved in the Last Year: Not on file At any time in the past 12 months, were you homeless or living in a senior living (including now)?: No ROS: Gastrointestinal: denies abdominal [...] PT and DP pulses bilaterally NEURO: 5.07 Elmo Avi monofilament test diminished to digits and [...] keep feet elevated when nonweightbearing Continue with [facility] wound center Narinder Meredith DPM documented in this encounterHermann Area District [id number] NoteUT Electrophysiology Consult Note IN Cardiology [facility] Reason for visit: Ischemic cardiomyopathy HPI: [...] (02/23/2024) Received from [facility] [employer], [facility] [employer] AUDIT-C Frequency of Alcohol Consumption: Never Average [...] file Physical Activity: Inactive (02/23/2024) Received from [facility] Exercise Vital Sign Days of Exercise per Week: 0 days Minutes of Exercise per Session: 0 min Stress: No Stress Concern Present (02/23/2024) Received from [facility] [place] [facility] Occupational Health - Occupational Stress Questionnaire Feeling of Stress : Not at all Social Connections: Moderately Isolated (02/23/2024) Received from [facility] Social Connection and Isolation Panel [NHANES] Frequency of Communication with Friends and Family: More than three times a week Frequency of Social Gatherings with Friends and Family: Once a week Attends Confucianist Services: Never Active Member of Clubs or Organizations: Yes Attends Club or Organization Meetings: 1 to 4 times per year Marital Status: Never Intimate Partner Violence: Unknown (04/21/2024) Humiliation, Afraid, Rape, and Kick questionnaire Fear of Current or Ex-Partner: No Emotionally Abused: Not on file Physically Abused: Not on file Sexually Abused: Not on file Depression: Not at risk (10/13/2024) Received from [facility] PHQ-2 Patient Health Questionnaire-2 Score: 0 Housing Stability: Low Risk (04/21/2024) Housing Stability Vital Sign Unable to Pay for Housing in the Last Year: No Number of Times Moved in the Last Year: Not on file Homeless in the Last Year: No Utilities: Not At Risk (04/21/2024) [facility] Utilities Threatened with loss of utilities: No Health Literacy: Adequate Health Literacy (02/23/2024) Received from [facility] B1300 Health Literacy Frequency of need for [...] mg by m (more content not included)... [facility]05-15-2025 Evaluation note* Diagnosis Onset Date Resolution Status Admit Date Chronic radicular low back pain acuteMay 2024 11:25amTrochanteric bursitis, right hipacuteMay 2024 11:25amDiabetes mellitus, type 2acuteJune 2024 10:34amEdema of both lower extremitiesacuteJune 2024 10:34amNeuropathic painacuteJune 2024 10:34amUlcer of left heelacuteJune 2024 10:34amUlcer of right heelacute Mayra 2024 10:34amVenous insufficiency (chronic) (peripheral)acuteJune 2024 10:34amVenous stasis dermatitis of both lower extremitiesacuteJune 2024 10:34amWound infectionacuteJune 2024 10:34am [facility] Work Phone: 1(497) 195-816905-07-2025 History of Present illness Narrative* Abraham Cesar [...] if needed for chest pain. nystatin (Klayesta) [id number] UNIT/GM powder Apply topically 2 (two) times [...] Yes Cognitive Screening Three Word Registration: Banana, [place], Chair Clock Drawing: Normal Clock - 2 Three Word Recall: All 3 words correct - 3 Total Score (0-5 Points): 5 Pain Assessment Pain Score: 5 - Moderate pain Advance Care Planning Do you have a living will?: Yes Do you have a medical power of trust and estates attorney?: Yes Objective : BP 132/66 Pulse [...] 0.55 - 1.02 mg/dL Final [facility] EGFR-AF [place] 09/17/2024 >60 >=60 mL/min/1.73m 2 Final [facility] EGFR-NON AF [place] 09/17/2024 59 (L) >=60 mL/min/1.73m 2 Final [...] a living will and durable power of trust and estates attorney for healthcare. We discussed telling brooks [...] polyneuropathy, with long-term current use of insulin ([facility]) - POCT glycosylated hemoglobin (Hb A1C) docked device Type 2 diabetes mellitus with hyperglycemia, with long-term current use of insulin (CMS/[facility]) - glucose blood test strip; [...] on October 13, 2024 documented in this encounterHermann Area District [id number] Evaluation note* Diagnosis Onset Date Resolution Status Admit Date Diabetes mellitus, type 2 acuteMay 2024 10:25amEdema of both lower extremitiesacuteMay 2024 10:25amNeuropathic painacuteMay 2024 10:25amUlcer of left heelacuteMay 2024 10:25amUlcer of right heelacuteMay 2024 10:25amVenous insufficiency (chronic) (peripheral)acuteMay 2024 10:25amVenous stasis dermatitis of both lower extremitiesacuteMay 2024 10:25amWound infectionacuteMay 2024 10:25am [facility] Work Phone: 1(666) 267-504804-15-2025 History of Present illness Narrative* Narinder Meredith, SONIA - 09/21/2024 10:50 AM EDT Patient: Laura [...] Arthritis Unknown COPD (chronic obstructive pulmonary disease) ([facility]) Coronary artery disease (CAD) excluded Diabetes ([facility]) GERD (gastroesophageal reflux disease) Gout Hyperlipidemia ([facility]) Hypertension ([facility]) Kidney stones Obesity Sleep apnea Thyroid disease ([facility]) Type 2 diabetes mellitus Umbilical [...] chest pain., Disp: , Rfl: nystatin (Klayesta) [id number] UNIT/GM powder, Apply topically 2 (two) times [...] Strain: Low Risk (04/21/2024) Received from [facility] Overall Financial Resource Strain (CARDIA) Difficulty of Paying Living Expenses: Not hard at all Food Insecurity: No Food Insecurity (04/21/2024) Received from [facility] Hunger Vital Sign Within the past 12 months, you worried that your food would run out before you got the money to buymore.: Never true Ran Out of Food in the Last Year: Not on file Transportation Needs: No Transportation Needs (04/21/2024) Received from [facility] Transportation In the past 12 months, has lack of transportation kept you from medical appointments or from getting medications?: No Lack of Transportation (Non-Medical): Not on file Physical Activity: Inactive (02/23/2024) Exercise Vital Sign Days of Exercise per Week: 0 days Minutes of Exercise per Session: 0 min Stress: No Stress Concern Present (02/23/2024) [place] [employer] - Occupational Stress Questionnaire Feeling of Stress : Not at all Social Connections: Moderately Isolated (02/23/2024) Social Connection and Isolation Panel [NHANES] Frequency of Communication with Friends and Family: More than three times a week Frequency of Social Gatherings with Friends and Family: Once a week Attends Confucianist Services: Never Active Member of Clubs or Organizations: Yes Attends Club or Organization Meetings: 1 to 4 times per year Marital Status: Never Intimate Partner Violence: Unknown (04/21/2024) Received from [facility] Humiliation, Afraid, Rape, and Kick questionnaire Fear of Current or Ex-Partner: No Emotionally Abused: Not on file Physically Abused: Not on file Sexually Abused: Not on file Housing Stability: Low Risk (04/21/2024) Received from [facility] Housing Stability Vital Sign In the last 12 months, was there a time when you were not able to pay the mortgage or rent on time?: No Number of Times Moved in the Last Year: Not on file At any time in the past 12 months, were you homeless or living in a senior living (including now)?: No ROS: Gastrointestinal: denies abdominal [...] PT and DP pulses bilaterally NEURO: 5.07 Elmo Avi monofilament test diminished to digits and forefoot bilaterally 125Hz tuning fork diminished to 1st MPJ bilaterally ORTHO: Positive pain on palpation to toenails of the left 1,2,3,4,5 toes and right 1,2,3,4,5 toes ASSESSMENT 1. Diabetes mellitus due to underlying condition with diabetic polyneuropathy, without long-term current use of insulin ([facility]) 2. Pain due to onychomycosis of toenails of both feet 3. Peripheral venous insufficiency PLAN Discussed proper foot care with patient today. Debride nails in length and thickness digits 1 through 10 Visit spent with patient education on condition and treatment of condition. Patient to keep feet elevated when nonweightbearing Continue with wound care Narinder Meredith DPM documented in this encounterHermann Area District [id number] History of Present illness Narrative* HOLLEY White [...] if needed for chest pain. nystatin (Klayesta) [id number] UNIT/GM powder Apply topically 2 (two) times [...] Grandfather Deep williamson Cancer Mother's Sister Cherelle Fournierram Diabetes Father's Sister Nancy Logan Past Medical [...] SACROILIAC JOINT INJECTION Right 05/19/2024 SPINE SURGERY [id number] THYROIDECTOMY TOTAL VAGINAL HYSTERECTOMY Visit Vitals BP [...] polyneuropathy, with long-term current use of insulin ([facility]) -Patient states that her blood [...] switches back. Chronic systolic congestive heart failure ([facility]) -Patient taking torsemide occasionally, when it is convenient for her and she does not need to leave the house. Encouraged patient to use the medication as prescribed. She continues to have leg swelling on exam today. 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, limited to breakdown of skin ([facility]) -Patient will be following with Wound Care Clinic today. Cellulitis of left lower extremity -Complete entire regimen of Keflex, and use Aquaphor as needed for dry skin/ peeling. Gently clean area with soap and water daily. Contact office if symptoms do not continue to improve. Morbid obesity ([facility]) - Will restart Trulicity per patient request [...] Medication Follow Up, Diabetes. documented in this encounterHermann Area District [id number] NoteUT Cardiology [facility] Subjective Laura Lawson is a 73 [...] essential hypertension Cerebrovascular disease Chronic foot ulcer ([facility]/HCC) Coronary atherosclerosis Decreased estrogen level Diabetic retinopathy associated with type 2 diabetes mellitus ([facility]/HCC) Diaphragmatic hernia Difficulty walking Dyspnea on exertion Generalized osteoarthritis Gout History of arthritis History of hysterectomy Hyperglycemia due to type 2 diabetes mellitus ([facility]/HCC) 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 ([facility]) Low back pain Morbid obesity ([facility]) Neoplasm of uncertain behavior of kidney Obstructive sleep apnea syndrome Osteoarthritis of knee Osteoporosis Peripheral venous insufficiency Polyneuropathy due to type 2 diabetes mellitus ([facility]/HCC) Preoperative evaluation to rule out surgical contraindication Pulmonary function studies abnormal Pure hypercholesterolemia Renal mass Skin sensation disturbance Type 2 diabetes mellitus without complication ([facility]/HCC) Umbilical hernia Uric acid nephrolithiasis NSTEMI (non-ST elevated myocardial infarction) ([facility]/HCC) Acute exacerbation of CHF (congestive heart failure) ([facility]) COVID-19 Acquired spondylolisthesis Acute on chronic diastolic heart failure ([facility]) Coronary artery disease (CAD) excluded Diastolic dysfunction GERD (gastroesophageal reflux disease) History of carpal tunnel surgery of right wrist Hyperlipidemia Impaired mobility and endurance Localized edema Lumbar radiculopathy Morbid obesity with body mass index (BMI) of 45.0 to 49.9 in adult ([facility]) Paresthesia of skin Primary osteoarthritis of both knees S/P drug eluting coronary stent placement Ulcer of foot due to type 2 diabetes mellitus ([facility]/HCC) Pericardial effusion CAD in [place] tribe artery Coronary artery disease Coronary artery disease involving [place] tribe coronary artery of [place] tribe heart with other form of angina pectoris Chronic systolic heart failure ([facility]/HCC) Combined forms of age-related cataract of both [...] disease (CMS/HCC) Unspecified systolic (congestive) heart failure (CMS/HCC) Family History Problem Relation Name Age of [...] ISR. On 07/07/2024 she was admitted to [facility] emergency room with chest pain and low blood pressure. Her ECG was consistent with STEMI. She eventually was taken to the [facility] and underwent stent placement to the mid LAD. Echocardiogram (more content not included)...[facility]03-28-2025 History of Present illness Narrative* Abraham Cesar MD - 09/03/2024 11:30 AM EDT Images from the original note were not included. HPI Leg Swelling Additional comments: Left lower leg sores on bilateral feet Additional comments: Pt is requesting referral to wound clinic at [facility] Last edited by Anisa Shaffer LPN on 09/03/2024 11:44 AM. HPI Leg Swelling Additional comments: Left lower leg sores on bilateral feet Additional comments: Pt is requesting referral to wound clinic at [facility] Last edited by Anisa Shaffer LPN on 09/03/2024 11:44 AM. Subjective Patient ID: Laura Lawson is a 73 y.o. female who presents for Diabetes, Leg Swelling (Left lower leg), and sores on bilateral feet (Pt is requesting referral to wound clinic at [facility]). Diabetes Mellitus Patient presents for follow up [...] if needed for chest pain. nystatin (Klayesta) 087419 UNIT/GM powder Apply topically 2 (two) times [...] Known Problems Sister Cancer Maternal Grandfather Deep Yuniel williamson Cancer Mother's Sister Cherelle Naidu [...] SACROILIAC JOINT INJECTION Right 05/19/2024 SPINE SURGERY [id number] THYROIDECTOMY TOTAL VAGINAL HYSTERECTOMY Visit Vitals BP [...] polyneuropathy, with long-term current use of insulin ([facility]) Chronic systolic congestive heart failure (CMS/HCC) - torsemide (Demadex) 20 MG tablet; Take 1 tablet (20 mg) by mouth Daily Muscle weakness (generalized) Peripheral venous insufficiency - torsemide (Demadex) 20 MG tablet; Take 1 tablet (20 mg) by mouth Daily 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, limited to breakdown of skin (CMS/HCC) - Ambulatory referral to Wound Clinic; Future Cellulitis of left lower extremity - cephalexin (Keflex) 500 MG capsule; Take 1 capsule (500 mg) by mouth in the morning and 1 capsule(500 mg) before bedtime. Do all this for 10 days. Type 2 diabetes mellitus with other specified complication, with long-term current use of insulin (CMS/HCC) - insulin lispro (HumaLOG) 100 UNIT/ML injection; Inject 1-4 times per day as directed. Follow up in about 10 days (around 09/13/2024) for F/U med changes. documented in this encounterHermann Area District [id number] NotePatient stated that at her last Fam [...] providers. Slim HannonD Cardiology Outpatient Clinical Pharmacist 08/23/24[facility]02-28-2025 NotePharmD Cardiology Consult - GLP1 Management Referring Provider: Dr. Bhargav [facility] Location: [facility] Most recent visit: 07/19/[address] [...] Follow up with Cardiology: 09/03/24 Suzanne Crawley, Sin [facility] Cardiology 08/06/24[facility]02-10-2025 NoteUT Cardiology - [facility] Subjective Laura Lawson is a 73 y.o. year old female patient being seen for follow up echo done a few weeks ago. She was admitted to [facility] last month for hematuria and UTI. She says since then she was admitted to [facility] for chest pain. Says she underwent heart cath and PCI. A lot of medications were changed. She says chest pain and SOB have resolved. She's currently doing PT/OT at the SNF, so insurance won't cover cardiac rehab until this is completed. Patient Active Problem List Diagnosis Allergic rhinitis Angiomyolipoma of kidney Benign essential hypertension Cerebrovascular disease Chronic foot ulcer ([facility]/HCC) Coronary atherosclerosis Decreased estrogen level Diabetic retinopathy associated with type 2 diabetes mellitus ([facility]/HCC) Diaphragmatic hernia Difficulty walking Dyspnea on exertion Generalized osteoarthritis Gout History of arthritis History of hysterectomy Hyperglycemia due to type 2 diabetes mellitus ([facility]/HCC) 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 ([facility]) Low back pain Morbid obesity ([facility]) Neoplasm of uncertain behavior of kidney Obstructive sleep apnea syndrome Osteoarthritis of knee Osteoporosis Peripheral venous insufficiency Polyneuropathy due to type 2 diabetes mellitus ([facility]) Preoperative evaluation to rule out surgical contraindication Pulmonary function studies abnormal Pure hypercholesterolemia Renal mass Skin sensation disturbance Type 2 diabetes mellitus without complication ([facility]) Umbilical hernia Uric acid nephrolithiasis NSTEMI (non-ST elevated myocardial infarction) ([facility]) Acute exacerbation of CHF (congestive heart failure) ([facility]) COVID-19 Acquired spondylolisthesis Acute on chronic diastolic heart failure ([facility]) Coronary artery disease (CAD) excluded Diastolic dysfunction GERD (gastroesophageal reflux disease) History of carpal tunnel surgery of right wrist Hyperlipidemia Impaired mobility and endurance Localized edema Lumbar radiculopathy Morbid obesity with body mass index (BMI) of 45.0 to 49.9 in adult ([facility]) Paresthesia of skin Primary osteoarthritis of both knees S/P drug eluting coronary stent placement Ulcer of foot due to type 2 diabetes mellitus ([facility]) Pericardial effusion CAD in [place] artery Coronary artery disease Coronary artery disease involving [place] coronary artery of [place] tribe heart with other form of angina pectoris ([facility]) Chronic systolic heart failure ([facility]) Combined forms of age-related cataract of both eyes History of lumbar fusion Nonexudative age-related macular degeneration Thyroid disease Angina pectoris ([facility]) Lumbar stenosis with neurogenic claudication Acquired absence of both cervix and uterus Acute cystitis without hematuria Carpal tunnel syndrome, left upper limb Cervicalgia Chronic kidney disease, stage 3a ([facility]) Cognitive communication deficit Dysphagia, oral phase History of DVT in adulthood Impaired skin integrity Mild mitral regurgitation Muscle weakness (generalized) Other chronic pain Pain in left knee Type 2 diabetes mellitus with diabetic chronic kidney disease ([facility]) Unspecified systolic (congestive) heart failure ([facility]) Family History Problem Relation Name [...] ISR. On 07/07/2024 she was admitted to [facility] (more content not included)...[facility]01-31-2025 Evaluation + Plan noteExtracted from:Title:Discharge NoteAuthor:Selvin Yeh DODate:07/09/24 Discharge To, Anticipated II - Half-Way Unit Prescriptions metoprolol succinate 25 mg ER [...] mg= 1 cap(s), Oral, Daily Potassium Chloride (Jan-Iyeb-Yog M20) 20 mEq oral tablet, extended release, 20 mEq= 1 tab(s), Oral,Daily pregabalin 25 mg Cap, 25 mg= 1 cap(s), Oral, BID spironolactone 25 mg Tab, 12.5 mg= 0.5 tab(s), Oral, Daily torsemide 20 mg Tab, 10 mg= 0.5 tab(s), Oral, Daily Trulicity Pen 3 mg/0.5 mL subcutaneous solution, 1.5 mg, SubCutaneous, qWeek With When Contact Information MELBA BREWER, ABRAHAM , [address] [address]- Additional Instructions: RUDY ZENDEJAS MD Within 1 to 2 weeks Additional Instructions: Call for followup appointment. pt needs close follow up CV - Cardiovascular PCI Discharge Instructions (Custom) Extracted from:Title:Progress/SOAP NoteAuthor:Nan BREWER, Altru Health SystemspDate:07/08/24 Atrial fibrillation with con trolled ventricular rate [...] artery disease) (I25.10: Atherosclerotic heart disease of [place] tribe coronary artery without angina pectoris) 4. History [...] Check Site Check Troponin Vital Signs Extracted from:Title:APSO NoteAuthor:Selvin Yeh DODate:07/08/24 1. STEMI (ST elevation myoca rdial infarction) (I21.3: ST elevation (STEMI) myocardial infarction of unspecified site) [facility] 07/07/24 stent mid LAD asa statin brilinta hold AC, restart this evening 12.5 mg metoprolol if pressure can handle Telemetry Cardiology consulted and following Ordered: [facility] Hospital Care/Day High 50 Minutes 13623 2. Heart failure with reduced ejection fraction (I50.20: Unspecified systolic (congestive) heart failure) EF as low as 20 to 30% Hold Entresto Hold hydralazine Hold Jardiance Hold spironolactone 3. CAD (coronary artery disease) (I25.10: Atherosclerotic heart disease of [place] tribe coronary artery without angina pectoris) Aspirin Statin 4. History of DVT in adulthood (Z86.718: Personal history of other venous thrombosis and embolism) Holding Eliquis at this time due to [facility] Will likely restart Eliquis this evening 5. [...] Capillary Glucose POC Vital Signs Weight Extracted from:Title:Admission H & PAuthor:Selvin Yeh DODate:07/07/24 Patient will be admitted und er inpatient status due to estimated length of stay greater than 2 midnights. All images, labs, EKGs were reviewed DVT PPx PAS bilaterally Diet cardiac CODE STATUS full code 1. STEMI (ST elevation myocardial infarction) (I21.3: ST elevation (STEMI) myocardial infarction ofunspecified site) [facility] 07/07/24 stent mid LAD asa statin brilinta hold AC 12.5 mg metoprolol if pressure can handle Telemetry Cardiology consulted and following Ordered: Initial Hospital Care/Day High 75 Minutes 54113 2. Heart failure with reduced ejection fraction (I50.20: Unspecified systolic (congestive) heart failure) EF as low as 20 to 30% Hold Entresto Hold hydralazine Hold Jardiance Hold spironolactone 3. CAD (coronary artery disease) (I25.10: Atherosclerotic heart disease of [place] tribe coronary artery without angina pectoris) Aspirin Statin [...] Capillary Glucose POC Vital Signs Weight Extracted from:Title:Consult NoteAuthor:Marissa Montana MDpDate:07/07/24 1. STEMI (ST elevation myoca rdial infarction) [...] Check Site Check Troponin Vital Signs Extracted from:Title:ED NoteAuthor:Markos Moreno M.D. HDate:07/07/24 1. STEMI (ST elevation myoca rdial infarction) [...] Troponin 6 Hr. XR Chest Single View [facility] 01-31-2025 NoteDischarge Summary Admission and Discharge Information Admit Date/Time:07/07/2024 15:49 Admitting Physician - Luigi Montana MD Consulting Physician - [facility] Cardio, XXXX Luigi Montana MD Admitting Diagnoses: Discharge Order Date Discharge Patient - Ordered -- 07/09/24 11:31:00 EST, back to group home Discharge Diagnoses 1. STEMI (ST elevation myocardial [...] refused to have heart cath done at [facility] at first despite cardiology as well as ED physician strongly encouraging her to do so. Then arrangements were made for patient be transferred to [place] however once patient hurts she would be flying in a helicopter she said she did not realize it was that serious and agreed to have it done here. Patient was taken to [facility] stent placed mid LAD. Patient was [...] Cardiology recommended holding Entresto until follow-up with talcer as well as other changes as noted below. Patient's symptoms improved during stay. Patient's vital signs remained stable. Discussed diagnosis and treatment plan with patient who agree and accept plan of treatment. Patient stable at discharge. Med changes Aspirin for 2 weeks Decrease Farxiga to 5 mg daily Hold Entresto until follow-up with talcer Decrease spironolactone to 12.5 daily Decrease torsemide to 10 mg daily Stop hydralazine Decrease metoprolol from 75 mg daily to 12.5 mg daily Follow-up appointments [facility] Extingu[facility] Sprinkler Inspector in [place] within 1 to 2 weeks PCP 5 [...] Discharge Disposition Discharge To, Anticipated II - Half-Way Unit Discharge Medication List Prescriptions metoprolol succinate 25 mg ER Tab, 12.5 mg= 0.5 tab(s), Oral, Daily (more content not included)...[facility] HospitalComment on above:Result Comment: Electronically Signed By: Selvin Yeh DO.br\Date and Time Signed: 07/09/24 11:32 [id number] NoteEchocardiology Procedure Exam Date/Time Accession # Ordering Echo Transthoracic 07/08/2024 14:02 EST [id number] Luigi Montana MD Complete CPT code 66953 [id number] Reason for Exam (Echo Transthoracic Complete) Chest pain Report [facility] [address] [place] [address] Adult Echocardiogram Report Name: LAURA LAWSON Study Date: 07/08/2024 01:29 PM BP: 97/57 mmHg Patient Location: [address] Bed(s) [facility] HR: 62 : 1950 Gender: Female Height: 62 in Age: 73 yrs Ethnicity: T Weight: 203 lb Reason For Study: Chest pain BSA: 1.9 m2 History: High Cholesterol,HTN,Diabetes,CAD,KJ,Stents,Obesity Ordering Physician: Sona Performed By: Lashon Baca, EMILY Interpretation Summary [...] Signed by: Luigi Montana MD Transcribed by: Technologist: [facility]01-30-2025 Note Interdisciplinary Note - PT PT Evaluation completed with an AMPAC score of 19/24. Pt currently requires CGA/Min A for bed mobility and transfers with CGA. Pt was able to ambulate with FWW with no LOB. Will follow daily. Pt would benefit from returning to [facility] for continued PT services to return pt to [facility]01-30-2025 NoteGetLawson Learning Participants [employer] Understands Education Book A Boat Education Video Carotid Artery Stenting: Returning HomeFisher [facility] NoteInterdisciplinary Note - OT Pt is seen this date for OT evaluation. [facility] score: 16/24. Pt presents with overall decreased functional activity tolerance, UE strength, dynamic balance, and reports of low back/sciatic pain, limiting independence and safety with ADL tasks and functional transfers. pt will benefit from further OTtreatment during hospital stay to address these areas and maximize independence and safety with ADLtasks and transfers. OT recommending return to [facility] for further treatment at d/cAngela [facility]01-30-2025 NoteProgress Note-Physician Subjective Patient is resting comfortably [...] 05:50:00) Lymph Auto: 14.8 % (07/08/24 05:50:00) [place] Auto: 15 % High (07/08/24 05:50:00) Eos Auto: 3.4 % (07/08/24 05:50:00) Basophil Auto: 1.3 % (07/08/24 05:50:00) Neutro Absolute: 5.5 E9/L (07/08/24 05:50:00) Lymph Absolute: 1.2 E9/L (07/08/24 05:50:00) [place] Absolute: 1.3 E9/L High (07/08/24 05:50:00) Eos [...] Magnesium: 2.2 mg/dL (07/08/24 05:50:00) Troponin HS: 63432.9 pg/mL Critical (07/08/24 05:50:00) BNP: 1610 pg/mL High (07/07/24 15:27:00) Glucose Cap: 172 mg/dL High (07/08/24 11:36:00) POC Device SN: [id number] (07/08/24 11:36:00) POC User ID: [id number] (07/08/24 11:36:00) POC Username: ANGELA LYNN (07/08/24 [...] artery disease) (I25.10: Atherosclerotic heart disease of [place] tribe coronary artery without angina pectoris) 4. History [...] 07/07/24 16:55:00 EST acetam (more content not included)...[facility] HospitalComment on above:Result Comment: Electronically Signed By: Nan BREWER, Luigi\.br\Date and Time Signed: 07/08/24 12:22 [id number] NoteProgress Note-Physician Assessment/Plan 1. STEMI (ST elevation myocardial infarction) (I21.3: ST elevation (STEMI) myocardial infarction ofunspecified site) [facility] 07/07/24 stent mid LAD asa statin brilinta hold AC, restart this evening 12.5 mg metoprolol if pressure can handle Telemetry Cardiology consulted and following Ordered: [facility] Hospital Care/Day High 50 Minutes 48892 2. Heart failure with reduced ejection fraction (I50.20: Unspecified systolic (congestive) heart failure) EF as low as 20 to 30% Hold Entresto Hold hydralazine Hold Jardiance Hold spironolactone 3. CAD (coronary artery disease) (I25.10: Atherosclerotic heart disease of [place] tribe coronary artery without angina pectoris) Aspirin Statin 4. History of DVT in adulthood (Z86.718: Personal history of other venous thrombosis and embolism) Holding Eliquis at this time due to [facility] Will likely restart Eliquis this evening 5. [...] -- Output (1) Ur (more content not included)...[facility] HospitalComment on above: Result Comment: Electronically Signed By: Selvin Yeh DO\magdaleno\Date and Time Signed: 07/08/24 08:52 [id number] NoteHistory and Physical Basic Information Admit Date/Time:07/07/2024 [...] refused to have heart cath done at [facility] at first despite cardiology as well as ED physician strongly encouraging her to do so. Then arrangements were made for patient be transferred to [place] however once patient hurts she would be flying in a helicopter she said she did not realize it was that serious and agreed to have it done here. Patient was taken to [facility] stent placed mid LAD. Patient was [...] 15:27:00) Lymph Auto: 16.5 % (07/07/24 15:27:00) [place] Auto: 15 % High (07/07/24 15:27:00) Eos Auto: 4.7 % (07/07/24 15:27:00) Basophil Auto: 1.2 % (07/07/24 15:27:00) Neutro Absolute: 5.5 E9/L (07/07/24 15:27:00) Lymph Absolute: 1.4 E9/L (07/07/24 15:27:00) [place] Absolute: 1.3 E9/L High (07/07/24 15:27:00) Eos Absolute: 0.4 E9/L (07/07/24 15:27:00) Basophil Absolute: 0.1 E9/L (07/07/24::) PT: 16.6 second(s) High (07/07/24::) INR: 1.48 (07/07/24) PTT: 34.9 second(s) (07/07/24) Glucose Lvl: 197 mg/dL (07/07/24:) BUN: 28 mg/dL High (07/07/24) Creatinine: 1 mg/dL (07/07/24) eGFR: 60 mL/min/1.73 m2 (07/07/24) BUN/Creat Ratio: 28 High (07/07/24) Sodium Lvl: 134 mmol/L Low (07/07/24) Potassium Lvl: 4.2 mmol/L (07/07/24) Chloride: 99 mmol/L Low (07/07/24) CO2: 25 mmol/L (07/07/24) AGAP: 14 mEq/L (07/07/24) Calcium Lvl: 10.1 mg/dL (07/07/24) Magnesium: 2.1 mg/dL (07/07/24) Troponin HS: 2724.8 pg/mL Critical (07/07/24::) BNP: 1610 pg/mL High (07/07/24::) Glucose Cap: 148 mg/dL High (07/07/24 17::00) POC Device SN: [id number] (07/07/24 17::00) POC User ID: [id number] (07/07/24 17::00) POC Username: POC Username (07/07/24::00) Assessment/Plan Patient will be admitted under inpatient status due to estimated length of stay greater than 2 midnights. All images, labs, EKGs were reviewed DVT PPx???PAS bilaterally Diet???cardiac CODE STATUS (more content not included)...[facility] HospitalComment on above:Result Comment: Electronically Signed By: Selvin Yeh DO.padmini\Date and Time Signed: 07/07/24 19:29 [id number] Hospital Discharge instructions Patient Education 07/07/2024 17:04:47 CV - Cardiovascular PCI Discharge Instructions (Custom) [place], [place] Cardiovascular PCI DISCHARGE INSTRUCTIONS Diet: Resume [...] hours post procedure: Actoplus MetGlucophageGlucophage XR GlucovanceAvandametFortamet Bkh-teqlmewdbMajgiqQwnu-mwfoxktrz GlumetzaJanumetMetaglip RiometGlycomet Minimal pain, soreness and/or discomfort is expected. If you are prescribed an aspirin and/or antiplatelet (such as Plavix, Brilinta or Effient) do NOT stop taking these medications for any reason without talking to your talcer Site Care: Do not remove dressing for [...] you are interested in smoking cessation, contact [facility] at [phone], ext. [phone]. In the event you are unable to reach your physician, please call [facility] at [phone] and the roll form operator will assist you. Seek Medicare Care [...] Up Care 07/07/2024 14:52:48 With:MELBA BREWER, ABRAHAM Enriquez, [facility] Address: [address] [place] [address]- When: Unknown With:MARY BREWER [place] Address: When:1 to 2 weeks Comments:Call for followup appointment. pt needs close follow up [facility] 01-29-2025 NoteConsultation Note Chief Complaint chest pain [...] catheterization and wanted to be transferred to [facility] in [place]. Later on patient requested to proceed with the procedure at [facility]. I explained and reviewed the risks [...] qualifying data Historical Atherosclerotic heart disease of [place] coronary artery without angina pectoris Chronic kidney [...] Oral, q6hr, PRN aceta (more content not included)...[facility] HospitalComment on above: Result Comment: Electronically Signed By: Nan BREWER, Luigi\.padmini\Date and Time Signed: 07/07/24 17:24 [id number] NoteProgress Note-Physician Left main-angiographically normal LAD-patent stent [...] if systolicblood pressure less than 90 mmHg) EchocardiogramMorrow County HospitalComment on above:Result Comment: Electronically Signed By: Nan BREWER, Luigi\.br\Date and Time Signed: 07/07/24 17:18 [id number] NotePatient Education - Text [place] Cardiovascular PCI DISCHARGE INSTRUCTIONS Diet: ??? [...] for any reason without talking to your talcer Site Care: ??? Do not remove dressing [...] you are interested in smoking cessation, contact [facility] at [phone], ext. [phone]. ??? In the event you are unable to reach your physician, please call Yariel Sinclair at [phone] and the roll form operator will assist you. Seek Medicare Care [...] urine or stool ??? Black tarry stools ???[facility]01-[facility] NoteProgress Note-Physician I was called by [...] all her procedures have been done at [facility]. When I explained to the patient that she is likely having a heart attack and will need emergent heart cath patient told she wants to go to [facility] for further management. I and the ER physician both explained to the patient that she is at high risk of adverse outcomes including by delaying the procedure. Patient says she understands the risks but would not have a procedure done here and would only go to [facility] for a heart catheterization. She did tell me that her pain has subsided and currently she is pain-free. Reviewed her home medication list-patient takes Brilinta 90 mg twice a day and Eliquis 5 mg twice daily. Advised ER team to emergently contact [facility] for emergent transfer as per patient wishes. Recommend starting patient on heparin infusion. Give 90 mg dose of Brilinta. Monitor on telemetry. If patient changes her opinion and wishes to proceed with a heart cath at [facility] we will reevaluate and proceed with the heart catheterization.[facility] HospitalComment on above:Result Comment: Electronically Signed By: Luigi Montana MD\.padmini\Date and Time Signed: 07/07/24 15:35 [id number] Miscellaneous Notes* Telephone Encounter - HOLLEY White [...] and also sent outculture documented in this encounterHermann Area District [id number] Telephone encounter Note* Telephone Encounter - HOLLEY White - 05/12/2024 5:12 PM EST Cipro sent in for patient. Called and let her know that the antibiotic was called in and that she will need to hold the Tizanidine for 3 days while taking the Cipro. [facility] [id number] Telephone encounter Note* Telephone Encounter - Ankita Hauser MA - 05/12/2024 4:42 PM EST Pt came urine sample due to having burning and cloudy urine, results are in chart and also sent outculture [facility] [id number] History of Present illness Narrative* Ankita Hauser MA - 05/12/2024 3:00 PM EST Pt gave urine sample as she stated UTI having burning and cloudy urine documented in this encounterHermann Area District [id number] NotePharmD Consult - Heart Failure GDMT/CAD/Lipids Management Referring Provider: Dr. Bhargav Rosado [facility] Location: [facility] Most recent visit: 04/27/24 with Niraj [...] with Slim PritchardD Cardiology Outpatient Clinical Pharmacist 05/03/24[facility]11-20-2024 NotePharmD Consult - Heart Failure GDMT/CAD/Lipids Management Referring Provider: Dr. Bhargav Rosado [facility] Location: [facility] Most recent visit: 04/27/24 with Niraj [...] with Cardiology: 06/25/[address] Mary Kay, SlimD Cardiology Outpatient Clinical Pharmacist 04/27/24[facility]11-19-2024 NoteCardiovascular Medicine [facility] SUBJECTIVE Chief Complaint Patient presents with [...] w/ Reduced EF Admission Diagnosis: Angina pectoris ([facility]) [I20.9] Hospital course: Alissa Lawson is a 73F who presented as a transfer from [facility] where she was admitted with ongoing [...] the time. Due to high risk for NH, she was transferred to [facility] for a heart cath with Impella assist. 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 (CMS/HCC) Low back pain Morbid obesity (CMS/HCC) Neoplasm of uncertain behavior of kidney Obstructive sleep apnea syndrome Osteoarthritis of knee Osteoporosis Peripheral venous insufficiency Polyneuropathy due to type 2 diabetes mellitus (CMS/HCC) Preoperative evaluation to rule out surgical contraindication Pulmonary function studies abnormal Pure hypercholesterolemia Renal mass Skin sensation disturbance Type 2 diabetes mellitus without complication ([facility]/HCC) Umbilical hernia Uric acid nephrolithiasis NSTEMI (non-ST elevated myocardial infarction) ([facility]) Acute exacerbation of CHF (congestive heart failure) ([facility]) COVID-19 Acquired spondylolisthesis Acute on chronic diastolic heart failure ([facility]/HCC) Coronary artery disease (CAD) exclu (more content not included)...[facility]11-19-2024 NotePatient here for follow up [facility] for acute NSTEMI and HFrEF. She was discharged with a LifeVest and has decided not to wear it. She has a phone call apt scheduled with Campbell, cardiology pharmacist at [facility], to discuss Ozempic per Dr. Rosado. She did not bring updated med list from discharge. Denies chest pain, SOB, and bleeding on Eliquis. Review of Systems Constitutional: Positive for malaise/fatigue. Cardiovascular: Positive for leg swelling (improving). Respiratory: Positive for cough. All other systems reviewed and are negative.[facility] 04-22-2024 NotePhysical Therapy Physical Therapy Treatment Patient Name: Laura Lawson : 1950 Today's Date: 04/22/2024 Patient Active Problem List Diagnosis Allergic rhinitis Angiomyolipoma of kidney Benign essential hypertension Cerebrovascular disease Chronic foot ulcer ([facility]/HCC) Coronary atherosclerosis Decreased estrogen level Diabetic retinopathy associated with type 2 diabetes mellitus ([facility]/HCC) Diaphragmatic hernia Difficulty walking Dyspnea on exertion Generalized osteoarthritis Gout History of arthritis History of hysterectomy Hyperglycemia due to type 2 diabetes mellitus ([facility]/HCC) 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 ([facility]/HCC) Low back pain Morbid obesity ([facility]/HCC) Neoplasm of uncertain behavior of kidney Obstructive sleep apnea syndrome Osteoarthritis of knee Osteoporosis Peripheral venous insufficiency Polyneuropathy due to type 2 diabetes mellitus ([facility]/HCC) Preoperative evaluation to rule out surgical contraindication Pulmonary function studies abnormal Pure hypercholesterolemia Renal mass Skin sensation disturbance Type 2 diabetes mellitus without complication ([facility]/HCC) Umbilical hernia Uric acid nephrolithiasis NSTEMI (non-ST elevated myocardial infarction) ([facility]/HCC) Acute exacerbation of CHF (congestive heart failure) ([facility]/HCC) COVID-19 Acquired spondylolisthesis Acute on chronic diastolic heart failure ([facility]/HCC) Coronary artery disease (CAD) excluded Diastolic dysfunction [...] diabetes mellitus (CMS/HCC) Pericardial effusion CAD in [place] artery Coronary artery disease Coronary artery disease involving [place] coronary artery of [place] tribe heart with other form of angina pectoris (CMS/HCC) Chronic systolic heart failure (CMS/HCC) Combined forms of age-related cataract of both eyes History of lumbar fusion Nonexudative age-related macular degeneration Thyroid disease Angina pectoris (CMS/HCC) Time: 16:00-16:16 04/22/24 1620 PT Last Visit PT Received On 04/22/24 General Subjective Cooker Sulfate returning to do step negotiation with pt [...] light in place and [employer] life vest international account representative here to fit pt for life [...] exercise to im (more content not included)... [facility]11-14-2024 NotePhysical Therapy Physical Therapy Treatment Patient Name: Laura Lawson : 1950 Today's Date: 04/22/2024 Patient Active Problem List Diagnosis Allergic rhinitis Angiomyolipoma of kidney Benign essential hypertension Cerebrovascular disease Chronic foot ulcer ([facility]) Coronary atherosclerosis Decreased estrogen level Diabetic retinopathy associated with type 2 diabetes mellitus ([facility]) Diaphragmatic hernia Difficulty walking Dyspnea on exertion Generalized osteoarthritis Gout History of arthritis History of hysterectomy Hyperglycemia due to type 2 diabetes mellitus ([facility]) 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 ([facility]) Low back pain Morbid obesity ([facility]) Neoplasm of uncertain behavior of kidney Obstructive sleep apnea syndrome Osteoarthritis of knee Osteoporosis Peripheral venous insufficiency Polyneuropathy due to type 2 diabetes mellitus ([facility]) Preoperative evaluation to rule out surgical contraindication Pulmonary function studies abnormal Pure hypercholesterolemia Renal mass Skin sensation disturbance Type 2 diabetes mellitus without complication ([facility]) Umbilical hernia Uric acid nephrolithiasis NSTEMI (non-ST elevated myocardial infarction) ([facility]) Acute exacerbation of CHF (congestive heart failure) ([facility]) COVID-19 Acquired spondylolisthesis Acute on chronic diastolic heart failure ([facility]) Coronary artery disease (CAD) excluded Diastolic dysfunction GERD (gastroesophageal reflux disease) History of carpal tunnel surgery of right wrist Hyperlipidemia Impaired mobility and endurance Localized edema Lumbar radiculopathy Morbid obesity with body mass index (BMI) of 45.0 to 49.9 in adult ([facility]) Paresthesia of skin Primary osteoarthritis of both knees S/P drug eluting coronary stent placement Ulcer of foot due to type 2 diabetes mellitus ([facility]) Pericardial effusion CAD in [place] artery Coronary artery disease Coronary artery disease involving [place] coronary artery of [place] heart with other form of angina pectoris ([facility]) Chronic systolic heart failure ([facility]) Combined forms of age-related cataract of both eyes History of lumbar fusion Nonexudative age-related macular degeneration Thyroid disease Angina pectoris ([facility]) 04/22/24 1145 PT Last Visit [...] Goal Start Date Expected (more content not included)...[facility]11-14-2024 NoteHospital Medicine Discharge Summary Final Discharge Diagnosis: Acute NSTEMI Acute on Chronic HF w/ Reduced EF Admission Diagnosis: Angina pectoris ([facility]) [I20.9] Hospital course: Alissa Lawson is a 73F who presented as a transfer from [facility] where she was admitted with ongoing [...] the time. Due to high risk for NH, she was transferred to [facility] for a heart cath with Impella assist. [...] During Admission: Cardiology Dear Dr. Melba MD, Haynes is advised to follow up with you within 1-2 weeks. Items to follow up in ambulatory setting: Medication adjustments. Renal mass found on CT Abdomen and pelvis, previous findings on 2013. Unsure if worked up. Follow-up with: Cardiology and CHF clinic Scheduled appointments: Future Appointments Date Time Provider Department Center 04/27/2024 2:20 PM Niraj San NP [facility] Your medication list START [...] 300 mg tablet Commonl (more content not included)...[facility] 04-22-2024 NoteCardiology Progress Note Subjective F/U: chest pain, NSTEMI s/p balloon angioplasty HPI: Laura Lawson is a 73 y.o. female with past history remarkable for primary hypertension, type 2 diabetes mellitus, mixed hyperlipidemia, coronary artery disease status post PCI to LAD, RCA on 10/2023, chronic heart failure with improved ejection fraction 45% previously 30%, who presented to [facility] after transfer from [facility] where she initially presented with left-sided chest pain, found to have elevated high-sensitivity troponin and was transferred to [facility]. During my evaluation today, patient was complaining [...] Temporal 83 22 98 % -- 04/21/24 1758 -- -- -- 83 21 99 % -- Current Facility-Administered Medications: allopurinol (Zyloprim) tablet 300 mg, 300 mg, oral, Daily, Malina Jha MD, 300 mg at 04/22/24 0943 apixaban (Eliquis) tablet 5 mg, 5 mg, oral, BID, Malina Jha MD, 5 mg at 04/22/24 0943 baclofen (Lioresal) tablet 10 mg, 10 mg, oral, Nightly, Анна Wright MD, 10 mg at 04/21/242114 colchicine tablet 0.6 mg, 0.6 mg, oral, Daily, Bhargav Rosado MD, 0.6 mg at 04/22/24 0943 [...] Abdomen is soft. Musculoskeleta (more content not included)...[facility] 04-21-2024 NotePhysical Therapy Physical Therapy Treatment Patient Name: Laura Lawson : 1950 Today's Date: 04/21/2024 Patient Active Problem List Diagnosis Allergic rhinitis Angiomyolipoma of kidney Benign essential hypertension Cerebrovascular disease Chronic foot ulcer ([facility]/HCC) Coronary atherosclerosis Decreased estrogen level Diabetic retinopathy associated with type 2 diabetes mellitus ([facility]/HCC) Diaphragmatic hernia Difficulty walking Dyspnea on exertion Generalized osteoarthritis Gout History of arthritis History of hysterectomy Hyperglycemia due to type 2 diabetes mellitus ([facility]/HCC) 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 ([facility]) Low back pain Morbid obesity ([facility]) Neoplasm of uncertain behavior of kidney Obstructive sleep apnea syndrome Osteoarthritis of knee Osteoporosis Peripheral venous insufficiency Polyneuropathy due to type 2 diabetes mellitus ([facility]/HCC) Preoperative evaluation to rule out surgical contraindication Pulmonary function studies abnormal Pure hypercholesterolemia Renal mass Skin sensation disturbance Type 2 diabetes mellitus without complication ([facility]/HCC) Umbilical hernia Uric acid nephrolithiasis NSTEMI (non-ST elevated myocardial infarction) ([facility]/HCC) Acute exacerbation of CHF (congestive heart failure) ([facility]) COVID-19 Acquired spondylolisthesis Acute on chronic diastolic heart failure ([facility]) Coronary artery disease (CAD) excluded [...] diabetes mellitus (CMS/HCC) Pericardial effusion CAD in [place] artery Coronary artery disease Coronary artery disease involving [place] coronary artery of [place] heart with other form of angina pectoris (CMS/HCC) Chronic systolic heart failure (CMS/HCC) Combined forms of age-related cataract of both eyes History of lumbar fusion Nonexudative age-related macular degeneration Thyroid disease Angina pectoris (CMS/HCC) Time : 16:02-16:40 04/21/24 1645 PT Last [...] 1 Sit to stand;Alberto (more content not included)...[facility]11-13-2024 NoteOccupational Therapy Occupational Therapy Treatment Patient Name: Laura Lawson : 1950 Today's Date: 04/21/2024 Time In: 923 Time Out: 933 Problem List Patient Active Problem List Diagnosis Allergic rhinitis Angiomyolipoma of kidney Benign essential hypertension Cerebrovascular disease Chronic foot ulcer ([facility]/HCC) Coronary atherosclerosis Decreased estrogen level Diabetic retinopathy associated with type 2 diabetes mellitus ([facility]/HCC) Diaphragmatic hernia Difficulty walking Dyspnea on exertion Generalized osteoarthritis Gout History of arthritis History of hysterectomy Hyperglycemia due to type 2 diabetes mellitus ([facility]/HCC) senior care current use of insulin ([facility]) Low back pain Morbid obesity ([facility]) Neoplasm of uncertain behavior of kidney Obstructive sleep apnea syndrome Osteoarthritis of knee Osteoporosis Peripheral venous insufficiency Polyneuropathy due to type 2 diabetes mellitus ([facility]) Preoperative evaluation to rule out surgical contraindication Pulmonary function studies abnormal Pure hypercholesterolemia Renal mass Skin sensation disturbance Type 2 diabetes mellitus without complication ([facility]/HCC) Umbilical hernia Uric acid nephrolithiasis NSTEMI (non-ST elevated myocardial infarction) ([facility]) Acute exacerbation of CHF (congestive heart failure) ([facility]) COVID-19 Acquired spondylolisthesis Acute on chronic diastolic heart failure ([facility]) Coronary artery disease (CAD) excluded Diastolic dysfunction GERD (gastroesophageal reflux disease) History of carpal tunnel surgery of right wrist Hyperlipidemia Impaired mobility and endurance Localized edema Lumbar radiculopathy Morbid obesity with body mass index (BMI) of 45.0 to 49.9 in adult ([facility]) Paresthesia of skin Primary osteoarthritis of both knees S/P drug eluting coronary stent placement Ulcer of foot due to type 2 diabetes mellitus (CMS/HCC) Pericardial effusion CAD in [place] artery Coronary artery disease Coronary artery disease involving [place] coronary artery of [place] heart with other form of angina pectoris (CMS/HCC) Chronic systolic heart failure (CMS/HCC) Combined forms of age-related cataract of both eyes History of lumbar fusion Nonexudative age-related macular degeneration Thyroid disease Angina pectoris (CMS/HCC) Pain: Pain Assessment Pain Score: 3 (LBP/ [...] Limits General Assessment General Assessment Hearing: (mild [place]) Hand Dominance: Right Static Sitting Balance Static [...] Eating meals?: None (Independent) Total Score OT [facility]: 21 Assessment/Plan OT Assessment OT Impairments: [...] PRN OT Discharge Emile (more content not included)...[facility]11-13-2024 NoteCase was discussed with the Medical Student [...] Discharge planning with diuretic. Malina Jha MD [facility] Medicine Daily Progress Note - 04/21/2024 9:08 AM; Room: [address] [place] [address] Admission: 04/19/2024 4:39 AM; Length of stay: 2 days THE HOSPITALIST TEAM PREFERS TO USE [employer] CHAT FOR NON-URGENT COMMUNICATION 7AM-7PM. IF I DO NOT RESPOND WITHIN 20 MINUTES OR URGENT MATTERS, PLEASE CALL THROUGH THE SUPPORT GROUP MANAGER. FROM 7PM-7AM, PLEASE PAGE [phone](COVR). Code Status: Full Code Barriers to Discharge: [...] Active Inpatient Problems Principal Problem: Angina pectoris ([facility] [facility]) Assessment and Plan Acute NSTEMI [...] Academy of Nutrition and Dietetics and the [place] Society of Enteral and Parenteral Nutrition, meets the diagnosis for malnutrition. A care plan has been established for this patient. VTE Prophylaxis: None Scheduled Meds [Held by provider] allopurinol, 300 mg, oral, Daily aspirin, 81 mg, oral, Daily baclofen, 10 mg, (more content not included)...[facility]11-13-2024 Notedischarge planning: to return home with family Patient came to [facility] 04/19/2024; H&P stating transferred from [facility] where she was admitted with ongoing pain left upper chest radiating to arm and neck associated with nausea vomiting - Occupational Therapy Evaluation recommending discharge to Home - Physical Therapy Evaluation recommending discharge to Home - LDAs noting wounds: pressure injury sacrum, diabetic ulcer toe - MAR noting Lantus (diabetes medication), Brilinta - follow up with [facility] on AVS barriers: - pending clinical course 04/21/24 0901 Referral Data 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 No Patient's goal for discharge return home Does the patient need discharge transport arranged? No (family)[facility]11-13-2024 NoteCardiology Progress Note Subjective F/U: chest pain, NSTEMI s/p balloon angioplasty HPI: Laura Lawson is a 73 y.o. female with past history remarkable for primary hypertension, type 2 diabetes mellitus, mixed hyperlipidemia, coronary artery disease status post PCI to LAD, RCA on 10/2023, chronic heart failure with improved ejection fraction 45% previously 30%, who presented to [facility] after transfer from [facility] where she initially presented with left-sided chest pain, found to have elevated high-sensitivity troponin and was transferred to [facility]. During my evaluation today, patient was complaining [...] -- -- 82 18 98 % -- 04/20/24 2055 98/69 36.7 ???C (98.1 ???F) -- 91 22 93 % -- Current Facility-Administered Medications: allopurinol (Zyloprim) tablet 300 mg, 300 mg, oral, Daily, Malina Jha MD, 300 mg at 04/21/24 1307 apixaban (Eliquis) tablet 5 mg, 5 mg, oral, BID, Malina Jha MD, 5 mg at 04/21/24 1107 aspirin chewable tablet 81 mg, 81 mg, oral, Daily, Анна Wright MD, 81 mg at 04/21/24 0942 baclofen (Lioresal) tablet 10 mg, 10 mg, oral, Nightly, Анна Wright MD, 10 mg at 04/20/24 205 colchicine tablet 0.6 mg, 0.6 mg, oral, Daily, Bhargav Rosado MD, 0.6 mg at 04/21/24 0942 dapagliflozin propanediol (Farxiga) tablet 10 mg, 10 mg, oral, Daily, Анна Wright MD, 10 mg at 04/21/24 0942 ezetimibe (Zetia) tablet 10 mg, 10 mg, oral, Daily, Анна Wright MD, 10 mg at 04/21/24 0942 furosemide (Lasix) injection 40 mg, 40 mg, intravenous, q12h, Malina Jha MD, 40 mg at 04/21/24 0844 hydrALAZINE (Apresoline) tablet 25 mg, 25 mg, oral, BID, Анна Wright MD, 25 mg at 04/21/24 0941 insulin glargine (Lantus) injection vial 80 Units, [...] Comments: +2 BLE ed (more content not included)...[facility]11-12-2024 NotePatient admitted to the hospital for: Angina pectoris. Chart echo from 04/19/2024 reports: EF 20 %. Current echo report qualifies for Cardiac Rehab services per CMS eligibility criteria. A Cardiac Rehab referral diagnosis and code must also meet CMS criteria. 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 In depth heart [...] ideal body weight (50 kg) Calorie needs: 2296-2571 kcals/day based on Equation: 25-30 kcal/kg Protein [...] Academy of Nutrition and Dietetics, and the [place] Society of Enteral and Parenteral Nutrition to [...] what it is bu (more content not included)...[facility]11-12-2024 NoteCase was discussed with the Medical Student [...] need follow up outpatient. Malina Jha MD [facility] Medicine Daily Progress Note - 04/20/2024 12:40 PM; Room: [address] [place] [address] Admission: 04/19/2024 4:39 AM; Length of stay: 1 days THE HOSPITALIST TEAM PREFERS TO USE [employer] FOR NON-URGENT COMMUNICATION 7AM-7PM. IF I DO NOT RESPOND WITHIN 20 MINUTES OR URGENT MATTERS, PLEASE CALL THROUGH THE SUPPORT GROUP MANAGER. FROM 7PM-7AM, PLEASE PAGE [phone](COVR). Code Status: Full Code Barriers to Discharge: [...] Active Inpatient Problems Principal Problem: Angina pectoris ([facility]) Assessment and Plan Acute NSTEMI [...] Units, subcutaneous, q AM (more content not included)...[facility]11-12-2024 Note Physical Therapy Physical Therapy Evaluation Patient [...] essential hypertension Cerebrovascular disease Chronic foot ulcer ([facility]) Coronary atherosclerosis Decreased estrogen level Diabetic retinopathy associated with type 2 diabetes mellitus ([facility]) Diaphragmatic hernia Difficulty walking Dyspnea on exertion Generalized osteoarthritis Gout History of arthritis History of hysterectomy Hyperglycemia due to type 2 diabetes mellitus ([facility]) 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 ([facility]) Low back pain Morbid obesity ([facility]) Neoplasm of uncertain behavior of kidney Obstructive sleep apnea syndrome Osteoarthritis of knee Osteoporosis Peripheral venous insufficiency Polyneuropathy due to type 2 diabetes mellitus ([facility]) Preoperative evaluation to rule out surgical contraindication Pulmonary function studies abnormal Pure hypercholesterolemia Renal mass Skin sensation disturbance Type 2 diabetes mellitus without complication ([facility]) Umbilical hernia Uric acid nephrolithiasis NSTEMI (non-ST elevated myocardial infarction) ([facility]) Acute exacerbation of CHF (congestive heart failure) ([facility]) COVID-19 Acquired spondylolisthesis Acute on chronic diastolic heart failure ([facility]) Coronary artery disease (CAD) excluded Diastolic dysfunction GERD (gastroesophageal reflux disease) History of carpal tunnel surgery of right wrist Hyperlipidemia Impaired mobility and endurance Localized edema Lumbar radiculopathy Morbid obesity with body mass index (BMI) of 45.0 to 49.9 in adult ([facility]) Paresthesia of skin Primary osteoarthritis of both knees S/P drug eluting coronary stent placement Ulcer of foot due to type 2 diabetes mellitus (CMS/HCC) Pericardial effusion CAD in del[place] tribe artery Coronary artery disease Coronary artery disease involving del[place] tribe coronary artery of del[place] tribe heart with other form of angina pectoris [...] Level of Function Prior Function Level of Rio: Independent with ADLs and functional transfers, Independent [...] Sitting Balance Static Sitti (more content not included)...[facility] 04-20-2024 NoteCardiology Progress Note Subjective F/U: chest pain, HPI: Laura Lawson is a 73 y.o. female with past history remarkable for primary hypertension, type 2 diabetes mellitus, mixed hyperlipidemia, coronary artery disease status post PCI to LAD, RCA on 10/2023, chronic heart failure with improved ejection fraction 45% previously 30%, who presented to [facility] after transfer from [facility] where she initially presented with left-sided chest pain, found to have elevated high-sensitivity troponin and was transferred to [facility]. During my evaluation today, patient was complaining [...] -- -- -- -- 99 % -- 04/19/241999 114/67 36.7 ???C (98.1 ???F) Temporal 60 [...] Nightly, Анна Wright MD, 10 mg at 04/19/24 2200 colchicine tablet 0.6 mg, 0.6 mg, oral, [...] mg, oral, BID, Анна (more content not included)...[facility]11-12-2024 Note04/20/24 1013 Admission Assessment Questions Verify insurance [...] Status Interested Does the patient have a counseling case manager assigned to them through their [...] able to send link and activate MyChart? YesUnWilson Health11-12-2024 NoteOccupational Therapy Occupational Therapy Evaluation Patient Name: Laura Lawson : 1950 Today's Date: 04/20/2024 Time In: 733 Time Out: 753 She was transferred to [facility] from [facility] for NSTEMI. General Subjective: friendly and cooperative, reports generalized weakness and fatigue Patient Active Problem List Diagnosis Allergic rhinitis Angiomyolipoma of kidney Benign essential hypertension Cerebrovascular disease Chronic foot ulcer (CMS/HCC) Coronary atherosclerosis Decreased estrogen level Diabetic retinopathy associated with type 2 diabetes mellitus ([facility]) Diaphragmatic hernia Difficulty walking Dyspnea on exertion Generalized osteoarthritis Gout History of arthritis History of hysterectomy Hyperglycemia due to type 2 diabetes mellitus ([facility]) senior care current use of insulin ([facility]) Low back pain Morbid obesity ([facility]) Neoplasm of uncertain behavior of kidney Obstructive sleep apnea syndrome Osteoarthritis of knee Osteoporosis Peripheral venous insufficiency Polyneuropathy due to type 2 diabetes mellitus ([facility]) Preoperative evaluation to rule out surgical contraindication Pulmonary function studies abnormal Pure hypercholesterolemia Renal mass Skin sensation disturbance Type 2 diabetes mellitus without complication ([facility]) Umbilical hernia Uric acid nephrolithiasis NSTEMI (non-ST elevated myocardial infarction) ([facility]) Acute exacerbation of CHF (congestive heart failure) ([facility]) COVID-19 Acquired spondylolisthesis Acute on chronic diastolic heart failure ([facility]) Coronary artery disease (CAD) excluded Diastolic dysfunction GERD (gastroesophageal reflux disease) History of carpal tunnel surgery of right wrist Hyperlipidemia Impaired mobility and endurance Localized edema Lumbar radiculopathy Morbid obesity with body mass index (BMI) of 45.0 to 49.9 in adult ([facility]) Paresthesia of skin Primary osteoarthritis of both knees S/P drug eluting coronary stent placement Ulcer of foot due to type 2 diabetes mellitus ([facility]) Pericardial effusion CAD in del[place] tribe artery Coronary artery disease Coronary artery disease involving del[place] tribe coronary artery of del[place] tribe heart with other form of angina pectoris ([facility]) Chronic systolic heart failure ([facility]) Combined forms of age-related cataract of both eyes History of lumbar fusion Nonexudative age-related macular degeneration Thyroid disease Angina pectoris ([facility]) Past Medical History: Diagnosis Date Abnormal ECG CHF (congestive heart failure) ([facility]) Coronary artery disease Diabetes mellitus ([facility]) Gout Hypertension Myocardial infarction ([facility]) Sleep apnea Past Surgical History: Procedure Laterality Date BACK SURGERY CARDIAC CATHETERIZATION CARPAL TUNNEL RELEASE HYSTERECTOMY THYROID SURGERY Precautions Precautions Medical Precautions: fall risk, oxygen (2LO2) Pain Pain Assessment Pain Score: 2 (chronic LBP/baseline and left flank pain when coughing) Cognition Cognition Overall Cognitive Status: Within Functional Limits General Assessment General Assessment Hearing: (mild [place]) Hand Dominance: Right Home Living Home Living Type of Home: House Lives With: Significant other Home Adaptive Equipment: Walker rolling, Rollator (sc, gb, [facility] [address]) Home Layout: One level Home Access: Stairs to enter with rails (4) Bathroom Shower/Tub: Walk-in shower Prior Level of Function Prior Function Level of Rio: Independent with ADLs and functional transfers, Independent [...] (Min Assist/Contact Guard/Supervision) Bathing(Includ (more content not included)...[facility] 04-19-2024 NoteUnSelect Medical [facility] Surgery/Wound Care CONSULTATION Reason for Consult: Deep tissue injury and diabetic ulcers Subjective History of Present Illness: Laura Lawson is a 73 y.o. female with a PMH of HTN, DM, hyperlipidemia, CAD s/p PCI to LAD, RCA on 10/2023 and heart failure. She was transferred to [facility] from [facility] for NSTEMI. Patient states she has [...] Joshua Segal MD, 25 mg at 04/19/24 0845 Social [...] Not on file So (more content not included)...[facility]11-11-2024 NoteConsult to cardiology pharmacist to see if she can be treated with Ozemipic for diabetes and CAD Titrate as tolerated Also, please do med reconciliation and education Diagnosis Plan 1. Coronary artery disease involving del[place] tribe coronary artery of [place] tribe heart with other form of angina pectoris ([facility]) Ambulatory referral to Cardiology Pharmacist 2. Diabetes mellitus type II, non insulin dependent ([facility]) 3. NSTEMI (non-ST elevated myocardial infarction) ([facility]) Ambulatory referral to Cardiology Pharmacist 4. Status post insertion of drug eluting coronary artery stent Ambulatory referral to Cardiology Pharmacist 5. Diabetes mellitus due to underlying condition with other circulatory complication, with long-term current use of insulin ([facility]) Ambulatory referral to Cardiology PharmacistUnWilson Health11-11-2024 NotePhysical Therapy Currently off of the floor this morning for heart cath. Will likely follow up tomorrow for evaluation. Smooth Bazzi PT, DPTUnWilson Health11-11-2024 NoteLabs and chart reviewed Patient with chest [...] of care with patient and RN at bedside.[facility]11-11-2024 NoteHospital Medicine History and Physical 04/19/2024 5:40 AM THE HOSPITALIST TEAM PREFERS TO USE [employer] CHAT FOR NON-URGENT COMMUNICATION 7AM-7PM. IF I DO NOT RESPOND WITHIN 20 MINUTES OR URGENT MATTERS, PLEASE CALL THROUGH THE SUPPORT GROUP MANAGER. FROM 7PM-7AM, PLEASE PAGE [phone](COVR). Chief Complaint No chief complaint on file. History of Present Illness Laura Lawson is an 73 y.o. female transferred from [facility] where she was admitted with ongoing [...] Negative. Problem List Principal Problem: Angina pectoris (CMS/[facility]) Assessment and Plan NSTEMI Chest [...] this hospital stay by a member of [facility] Medicine. Past Medical History Past Medical History: Diagnosis Date Abnormal ECG CHF (congestive heart failure) (CMS/[facility]) Coronary artery disease Diabetes mellitus (more content not included)...[facility]11-07-2024 History of Present illness Narrative* Narinder Meredith DPM - 04/15/2024 3:50 PM EST Patient: [...] Arthritis Unknown COPD (chronic obstructive pulmonary disease) ([facility]) Coronary artery disease (CAD) excluded Diabetes ([facility]) GERD (gastroesophageal reflux disease) Gout Hyperlipidemia ([facility]/HCC) Hypertension ([facility]/HCC) Kidney stones Obesity Sleep apnea Thyroid disease ([facility]/HCC) Type 2 diabetes mellitus ([facility]) Umbilical hernia without obstruction and without gangrene [...] Use as instructed, Disp: , Rfl: Klayesta [id number] UNIT/GM powder, Apply 1 application topically in [...] min Stress: No Stress Concern Present (02/23/2024) [place] [employer] - Occupational Stress Questionnaire Feeling of Stress : Not at all Social Connections: Moderately Isolated (02/23/2024) Social Connection and Isolation Panel [NHANES] Frequency of Communication with Friends and Family: More than three times a week Frequency of Social Gatherings with Friends and Family: Once a week Attends Confucianist Services: Never Active Member of Clubs or Organizations: Yes Attends Club or Organization Meetings: 1 to 4 times per year Marital Status: Never Intimate Partner Violence: Unknown (10/08/2023) Re[facility] from [facility] Humiliation, Afraid, Rape, and Kick questionnaire Fear [...] PT and DP pulses bilaterally NEURO: 5.07 Elmo Avi monofilament test diminished to digits and forefoot bilaterally 125Hz tuning fork diminished to 1st MPJ bilaterally ORTHO: Positive pain on palpation to nails 1 through 10 ASSESSMENT 1. Diabetes mellitus due to underlying condition with diabetic polyneuropathy, without long-term current use of insulin ([facility]) 2. Pain due to onychomycosis of toenails of both feet 3. Peripheral venous insufficiency PLAN Discussed proper foot care with patient today. Debride nails in length and thickness digits 1 through 10 Visit spent with patient education on condition and treatment of condition. Patient to keep feet elevated when nonweightbearing Narinder Meredith DPM documented in this encounterHermann Area District [id number] Evaluation note* Diagnosis Onset Date Resolution Status Admit Date Chronic radicular low back pain acuteOctober 2023 11:15amHistory of lumbar fusionacuteOctober 2023 11:15amFailed back syndromeacuteDecember 2023 9:58amOther chronic painacute Bryan 2023 9:58amSacroiliitisacuteDecember 2023 9:58am [facility] Work Phone: [phone]) 515-346710-25-2024 History of Present illness Narrative* Abraham Cesar [...] (two) times a day. Useas instructed Klayesta [id number] UNIT/GM powder Apply 1 application topically in [...] (CMS/HCC) GERD (gastroesophageal reflux disease) Gout Hyperlipidemia ([facility]HCC) Hypertension ([facility]/HCC) Kidney stones Obesity Sleep apnea Thyroid disease ([facility]/HCC) Type 2 diabetes mellitus ([facility]/HCC) Umbilical hernia without obstruction and without gangrene [...] Interbody Fusion, Pedicle Screw Replacement SPINE SURGERY [id number] THYROIDECTOMY TOTAL VAGINAL HYSTERECTOMY Visit Vitals BP [...] hyperglycemia, with long-term current use of insulin ([facility]) - POCT Glycated hemoglobin, total - Improving. No med change today. Recheck in 2 months. Abnormal MRI, lumbar spine - Has f/up with Dr Roa. Bone edema in L2, ? Cause. Follow up in about 2 months (around 06/02/2024) for DM- A1C. documented in this encounterHermann Area District [id number] History of Present illness Narrative* HOLLEY White [...] (two) times a day. Useas instructed Klayesta [id number] UNIT/GM powder Apply 1 application topically in [...] Problems Sister Cancer Maternal Grandfather Deep Brice lo Cancer Mother's Sister Cherelle Bartram Diabetes Father's Sister Nancy Logan Past Medical [...] Interbody Fusion, Pedicle Screw Replacement SPINE SURGERY [id number] THYROIDECTOMY TOTAL VAGINAL HYSTERECTOMY Visit Vitals BP [...] for Appointment As Scheduled. documented in this encounterHermann Area District [id number] Miscellaneous Notes* Telephone Encounter - Arminda Christianson [...] or concerns. Closing note. documented in [facility] encounterMer[facility] Telephone encounter Note* Telephone Encounter - Arminda [...] are any questions or concerns. Closing note. [facility] History of Present illness Narrative* Abraham Cesar [...] (two) times a day. Useas instructed Klayesta [id number] UNIT/GM powder Apply 1 application topically in [...] Interbody Fusion, Pedicle Screw Replacement SPINE SURGERY [id number] THYROIDECTOMY TOTAL VAGINAL HYSTERECTOMY Visit Vitals BP [...] up for After MRI. documented in this encounterHermann Area District [id number] History of Present illness Narrative* Silva Rhoades, PT - 03/03/2024 1:00 PM EDT Physical Therapy Treatment Visit Patient Name: Laura Laswon Today's Date: 03/03/2024 Encounter Diagnoses Name Primary? [...] to be instructed in home exercise program. Campus Wellness Coordinator Goals: To be met in 10 weeks [...] Please sign below. Date: documented in this [facility]09-23-2024 History of Present illness Narrative* Abraham [...] (two) times a day. Useas instructed Klayesta [id number] UNIT/GM powder Apply 1 application topically in [...] 07/04/2023 CT ANGIOGRAM NECK 07/04/2023 EYE EXAM 2014 Disease:Diabetes mellitus, type 2 HERNIA REPAIR AK ARTHRD ANT INTERBODY MIN DSC LUMBAR 03/18/2022 L3-L5 Anterior Lumbar Interbody Fusion, Pedicle Screw Replacement SPINE SURGERY [id number] THYROIDECTOMY TOTAL VAGINAL HYSTERECTOMY Visit Vitals BP [...] for this visit: 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 (CMS/HCC) - This is a chronic medical condition that is stable since last assessment. No changes in treatmentare suggested at this time. Type 2 diabetes mellitus with hyperglycemia, with long-term current use of insulin (CMS/HCC) - glucose blood test strip; 1 each [...] short term risks of acute events and usp risks of uncontrolled DM. Acute on chronic diastolic heart failure (CMS/HCC) - sacubitril-valsartan (Entresto) 49-51 MG tablet; Take 1 tablet by mouth in the morning and 1 tablet before bedtime. - This office visit was spent in consultation regarding the patient's current medical problems, differential diagnoses, testing/imaging results, and treatment options. Greater than 25 minutes was spent in [id number] consultation and coordination of care. - No current active congestive heart failure. Dyspnea at exertion, but not at rest. No evidence of pulmonary edema. Medications unchanged. Follow up in about 4 weeks (around 03/29/2024) for DM- A1C. documented in this encounterHermann Area District [id number] History of Present illness Narrative* Silva Rhoades, [...] Assessment: Back Index 02/05/24: Pt has completed 12 PT sessions for [...] for symptom relief. Outcome Measure Back Index: Rehab Diagnosis: Low back and right LE pain and weakness; difficulty walking Short Term Goal: To be met in 2 weeks Goal 1: Pt to be instructed in home exercise program. Usp Goals: To be met in 10 weeks [...] Please sign below. Date: documented in this encounterHermann Area District [id number] History of Present illness Narrative* Narinder Meredith DPM - 02/05/2024 3:20 PM EDT Patient: Laura [...] Use as instructed, Disp: , Rfl: Klayesta [id number] UNIT/GM powder, Apply 1 application topically in [...] Strain: Low Risk (10/08/2023) [facility] from [facility] Overall Financial Resource Strain (CARDIA) Difficulty of Paying Living Expenses: Not hard at all Food Insecurity: No Food Insecurity (10/08/2023) Received from [facility], [facility] Hunger Vital Sign Within the past 12 months, you worried that your food would run out before you got the money to buymore.: Never true Ran Out of Food in the Last Year: Not on file Transportation Needs: No Transportation Needs (10/08/2023) Received from [facility], [facility] Transportation In the past 12 months, has lack of transportation kept you from medical appointments or from getting medications?: No Lack of Transportation (Non-Medical): Not on file Physical Activity: Inactive (01/12/2023) Exercise Vital Sign Days of Exercise per Week: 0 days Minutes of Exercise per Session: 0 min Stress: No Stress Concern Present (01/12/2023) [place] [employer] - Occupational Stress Questionnaire Feeling of Stress : Not at all Social Connections: Moderately Isolated (01/12/2023) Social Connection and Isolation Panel [NHANES] Frequency of Communication with Friends and Family: More than three times a week Frequency of Social Gatherings with Friends and Family: Once a week Attends Confucianist Services: Never Active Member of Clubs or Organizations: No Attends Club or Organization Meetings: Never Marital Status: Living with partner Intimate Partner Violence: Unknown (10/08/2023) Received from [facility], [facility] Humiliation, Afraid, Rape, and Kick questionnaire Fear of Current or Ex-Partner: No Emotionally Abused: Not on file Physically Abused: Not on file Sexually Abused: Not on file Housing Stability: Low Risk (10/08/2023) Received from [facility], [facility] Housing Stability Vital Sign Unable to Pay [...] PT and DP pulses bilaterally NEURO: 5.07 Elmo Avi monofilament test diminished to digits and forefoot bilaterally 125Hz tuning fork diminished to 1st MPJ bilaterally ORTHO: Positive pain on palpation to nails 1 through 10 ASSESSMENT 1. Peripheral venous insufficiency 2. Onychomycosis 3. Toe pain, bilateral 4. Diabetes mellitus due to underlying condition with diabetic polyneuropathy, without long-term current use of insulin ([facility]) PLAN Discussed proper foot care with patient today. Debride nails in length and thickness digits 1 through 10 Visit spent with patient education on condition and treatment of condition. Pt to continue with elevation of feet while resting or NWB. Discussed compression hose and the use of stockings for edema. Discussed condition in detail. Recommendation for jtbh-lwd-aonnwnr compression stockings at this time and may consider prescription stockings in the future. Narinder Meredith DPM documented in this encounterHermann Area District [id number] Evaluation note* Type Assessment Date assessment Both eyes affected b y mild nonproliferative diabetic retinopathy with macular edema, associated with type 2 diabetes mellitus impression Both eyes affected b y mild nonproliferative diabetic retinopathy with macular edema, associated with type 2 diabetes mellitus: E11.3213. [facility] Work Phone: 1(714) 103-884108-01-2024 History of Present illness Narrative* Encounter Date [...] did not change her last glasses RX. [facility] Work Phone: 1(419) 518-660708-01-2024 Instructions* Date Instruction Additional Infor dmitri Impression/Plan [...] edema, associated with type 2 diabetes mellitus [facility] Work Phone: 1(830) 288-183907-08-2024 History of Present illness Narrative* Valorie Tran MD - 12/15/2023 11:00 AM EDT Images from the original note were not included. [address] [facility] [id number] Patient: Laura Lawson Date of : 1950 [...] list. Past Medical History: Diagnosis Date Diabetes ([facility]) Heart disease Sleep apnea No [...] effects. Valorie Tran MD Clinical Neurophysiology Fellow [facility] * Casey العلي MD - 12/15/2023 11:00 AM EDT Attending Attestation: I saw the patient. I participated and was physically present during the critical/brooks portions of the service. I was directly involved in the management and treatment plan of the patient. I reviewed the resident's note. Additional Notes/Findings: documented in this encounterMercy Health Kings [facility] Hospital07-08-2024 Instructions* Patient Instructions* Valorie Tran MD - 12/15/2023 11:00 AM EDT Will get Nerve conduction study/EMG for polyneuropathy related to diabetes and carpal tunnel syndrome. Target hemoglobin A1C is below 7 Follow up in 4-6 months. documented in this encounterMercy Health Kings Mills Hospital03-28-2024 Miscellaneous Notes* Telephone Encounter - Trista Castaneda - 09/04/2023 2:53 PM EDT First Attempt Made from [facility] New [facility] referral received. Dx:Bilateral carpal tunnel [...] with Dr. العلي on 12/15/23 11:00 at [facility]. She wanted to wait some months out due to Dr. Uribe saying it wasn't urgent for her to come in soon for the carpel tunnel. documented in this encounterMercy Health Kings Mills Hospital03-28-2024 Telephone encounter Note* Telephone Encounter - Trista [...] INSURANCE INFORMATION TO THEIR NEW PATIENT APPOINTMENT [facility]03-28-2024 Telephone encounter Note* Telephone Encounter - Kasandra Weaver - 09/04/2023 2:53 PM EDT Received call today 09/05/23 3:10 from patient in regard to previous message and she scheduled for new patient appt with Dr. العلي on 12/15/23 11:00 at [facility]. She wanted to wait some months out due to Dr. Uribe saying it wasn't urgent for her to come in soon for the carpel tunnel. [facility] [employer] [place] [id number] History of Present illness Narrative* Robbi Uribe [...] has since followed up with Cardiology at [facility]. Patient is present with friend today. Patient [...] occlusions or narrowing, cardiology should consider a location and measurement technician heart monitor such as a LOOP recorder. Followup with general neurology for h/o carpel tunnel and possible diabetic neuropathy. Will call patient in 6 months, if patient is doing well, no followup needed. Call for any questions/concerns. documented in this encounterMercy Health Kings Mills Hospital03-12-2024 Instructions* Patient Instructions* Robbi Uribe MD - 08/19/2023 11:30 AM EDT Continue ASA daily Continue cholesterol medication Continue diabetic medication Continue BP medication Followup with cardiology as scheduled. Will clear patient for heart cath procedures and stents if needed. If heart cath shows no significant occlusions or narrowing, cardiology should consider a usp heart monitor such as a LOOP recorder. Followup with general neurology for h/o carpel tunnel and possible diabetic neuropathy. Will call patient in 6 months, if patient is doing well, no followup needed. Call for any questions/concerns. documented in this encounterMercy Health Kings Mills Hospital02-12-2024 History of Present illness Narrative* Abraham Cesar MD - 07/21/2023 10:30 AM EST Subjective Patient ID: Laura Lawson is a 72 y.o. female who presents for Follow-up (Admitted to [facility] 07/02/23 dx: Covid,CHF exac., NSTEMI discharged home 07/07/23 started on farxiga, coreg stopped labetolol pt had follow up appt with cardiology 07/16/23). Flowsheet Row Patient Outreach from 07/09/2023 in [facility] with Soledad Guerrero RN Discharge Information ED or Hospital Discharge? Hospital Patient has been contacted within two business days of discharge Yes Discharge Date 07/07/23 Discharge [facility] [D/C Acute on Chronic heart Failure, exacerbation [...] Comments labs, ecg, CXR. Pt transferred from [facility] to [facility], tested positive for covid, negative for covid x2 at [facility]. Pt to follow with Cardiology, appt on 07/16 at 2:20pm. Neurology 08/19/23 [facility] in [place]. Pt reports no shortness of breath. Using [...] monitor to be completed. Call End Time 033 Denies CP,dyspnea,syncope Current Outpatient Medications on File [...] noted above. 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 documented in this encounterHermann Area District [id number] Miscellaneous Notes* Telephone Encounter - Tasha Girard RN - 07/08/2023 4:03 PM EST This [facility]),also she needs 30-day event monitor. ([facility] done through [facility]) * Telephone Encounter - Kasandra Henriquez - 07/08/2023 4:03 PM EST Called patient and vm is not set up. No answer Spoke with Latrice, patients roommate and transportation, and scheduled appt documented in this encounterMercy Health Kings Mills Hospital01-30-2024 Telephone encounter Note* Telephone Encounter - Tasha Girard RN - 07/08/2023 4:03 PM EST This patient needs [facility] ([facility]),also she needs 30-day event monitor. (Being done through [facility]) [facility]01-30-2024 Telephone encounter Note* Telephone Encounter - Kasandra Henriquez - 07/08/2023 4:03 PM EST Called patient and vm is not set up. No answer Spoke with Latrice, patients roommate and transportation, and scheduled appt [facility]-05-2023 Evaluation note* Encounter Date Diagnosis Assessment Notes Treatment Notes Treatment Clinical Notes Mar, Spondylolisthesis, lumbar region (ICD-10 - M43.16) The patient still has pain in her legs but is probably from the lymphedema. Her true radicular painis much better she is happy with that her back feels much better. Her x-rays show stable hardware with good bone formation and beginning of good fusion. I will see the patient again in 6 months for follow-up overall from a surgical point of view she is done very well. [facility] Other 04-06-2023 Evaluation note* Encounter Date Diagnosis Assessment Notes Treatment Notes Treatment Clinical Notes Sep, Spondylolisthesis, lumbar region (ICD-10 - M43.16) I independently reviewed the plain x-ray of the lumbar spine compared to previous it appears to be stable with intact hardware no fractured screws good alignment. Clinically the patient has good relief of her radicular symptoms whenever she blows her nose sneezes or coughs she gets pain in the leftgroin and that grabbing or pinching in the top of her left thigh I am not certain what this is it could theoretically be a hernia she will be seeing her family doctor about this. She would like therapy for balance leg strengthening I ordered this I will see her back in 6 months with another x-ray. [facility] Other 01-05-2023 Evaluation note* Encounter Date Diagnosis Assessment Notes Treatment Notes Treatment Clinical Notes Jun, Lumbar radiculopathy (ICD-10 - M 54.16) I independently reviewed the plain x-ray of the lumbar spine and compared to previous showing good hardware placement. She has no abnormalities, she physically is doing well except for some occasional pain in her left thigh which she does not need to take medication for. She is having lymphedema orvenous stasis problems that are another issue preventing her from doing normal physical therapy. She is happy with her recovery. At this point I will see her in 3 months with a new x-ray. Jun,Spondylolisthesis, lumbar region (ICD-10 - M43.16) [facility] Other 11-10-2022 Evaluation note* Encounter Date Diagnosis Assessment Notes Treatment Notes Treatment Clinical Notes Apr, Lumbar radiculopathy (ICD-10 - M 54.16) I independently reviewed the x-ray showing reasonable cage placement and intact hardware from a two-level lumbar fusion. Patient clinically states her legs are feeling better she still feels weak. Overall she has done very well but only doing home therapy. I recommend an outpatient physical therapyprogram and have given a referral. I will see her again in 2 months for reevaluation with an xray. At this point she is taking no narcotics. Apr,pondylolisthesis, lumbar region (ICD-10 - M43.16) [facility] Other 10-14-2022 Progress note Author Abner Roa [facility] March 22, 2022 6:34amNote Date/TimeOct2021 6:34am[place] [address] Neurosurgery Progress Note Signed Patient: Laura Lawson MR#: [id number] : 1950 Acct:[id number] Age/Sex: 71 / F Adm Date: 2 Loc: 4 Room: [address] [place] [address] Type: ADM IN Attending Dr: Abner Roa [...] the event. Sheseems more comfortable than yesterday andwas sleeping soundly when I woke her up to examine her and talk to her. She appears much more comfortable Code(s): M48.062 - Spinal stenosis, lumbar region with neurogenic claudication Status: Acute Documented By: Abner Roa MD 03/22/22632 Signed By: <Electronically signed by MD Abner Roa> 03/22/22633 [facility] Work Phone: 1(225) 505-289710-13-2022 Progress note Author Abner Roa [facility] March 21, 2022 7:43amNote Date/TimeOct2021 7:43am[place] [address] Neurosurgery Progress Note Signed Patient: Laura Lawson MR#: [id number] : 1950 Acct:[id number] Age/Sex: 71 / F Adm Date: 2 Loc: 4N Room: [address] [place] [address] Type: ADM IN Attending Dr: Abner Roa [...] by MD Abner Roa> 03/21/[address] [facility] Work Phone: 1(799) 932-815310-12-2022 Progress note Author Abner Roa [facility] March 20, 2022 10:22amNote Date/TimeOct2021 10:22[place] [address] Neurosurgery Progress Note Signed Patient: Laura Lawson MR#: [id number] : 1950 Acct:[id number] Age/Sex: 71 / F Adm Date: 2 Loc: 4N Room: 6J9307-9 Type: ADM IN Attending Dr: Abner Roa [...] Glucose 245, POC Glucose Comment Will notify dr/die cast patternmaker/Plan Assessment/Plan (1) Lumbar stenosis with neurogenic claudication: [...] <Electronically signed by MD Abner Roa> 03/20/[address] [facility] Work Phone: 1(873) 617-271110-11-2022 Progress note Author Abner Roa [facility] March 19, 2022 7:33amNote Date/TimeOct2021 7:33[place] [address] Neurosurgery Progress Note Signed Patient: Laura Lawson MR#: [id number] : 1950 Acct:[id number] Age/Sex: 71 / F Adm Date: 2 Loc: 4N Room: 2S0073-8 Type: ADM IN Attending Dr: Abner Roa [...] by MD Abner Roa> 03/19/22 0733 [facility] Work Phone: 1(788) 145-993308-09-2022 Evaluation note* Encounter Date Diagnosis Assessment Notes [...] all imaging and test results face to faceand discussed treatment options in detail and had [...] She also has cardiac disease with 4 stentsand will need cardiac clearance. A lumbar sagital brace will be dispensed prior to surgery to reduce pain by rstricting mobility of the trunk and to otherwise support weak spinal muscles and/or a deformed spine. Jan,acroiliitis (ICD-10 - M46.1) Jan,Lumbar stenosis with neurogenic claudication (ICD-10 - M48.062) [facility] Other 07-01-2022 Evaluation note* Encounter Date Diagnosis Assessment Notes Treatment Notes Treatment Clinical Notes Dec, Lumbar radiculopathy (ICD-10 - M 54.16) 71 year old female here for follow up and medication refill for chronic pain. She voices continutedcomplaints of low back pain with radiation down the outer aspect of the left lower extremity to thefoot. She feels pain can negatively impact her daily activities and sleeping pattern. Anatomy of spine as well as different treatment options were discussed in detail with patient in regards to patients condition. I will prescribe Tramadol to be taken once at night to control her pain. Opioid contract signed today in the office. She can stop Gabapentin. Dec,acroiliitis (ICD-10 - M46.1) Sacral pain is minimal. Dec,hronic pain (ICD-10 - G89.29) Continue with current treatment plan [facility] Other 06-30-2022 Evaluation note* Encounter Date Diagnosis Assessment Notes Treatment Notes Treatment Clinical Notes Nov, Spondylolisthesis, lumbar region (ICD-10 - M43.16) Nov,Lumbar back pain with radiculopathy affecting left lower extremity (ICD-10 - M54.16)I have independently reviewed the MRI of the [...] see the patient back with this MRI, anew DEXA scan, 6 view lumbar spine x-ray. The patient fully understands and agrees with our plan ofaction. She has numerous complications to include class III obesity with comorbidity of diabetes aswell as coronary artery disease with multiple stents Nov,ervical myelopathy (ICD-10 - G95.9) Nov,acroiliitis (ICD-10 - M46.1) Nov,symptomatic age-related postmenopausal state (ICD-10 - Z78.0) [facility] Other 06-02-2022 Evaluation note* Encounter Date Diagnosis Assessment Notes Treatment Notes Treatment Clinical Notes Nov, Lumbar radiculopathy (ICD-10 - M 54.16) 71 year old female here for follow up status post left L3 and L4 transforaminal epidural steroid injection under fluoroscopic guidance. Patient reports minimal pain relief following procedure. She voices complaints of left sided low back pain with radiation down the left lower extremity to the kneeand numbness and tingling to the inner apect of the calf. I do not recommend any further injectionsat this time due to her recent amount of steroids. I recommend she see neurosurgery. I will prescribe Gabapentin 100 mg three times daily. She can continue her activities as tolerated. She can follow up in 3 months. Nov,acroiliitis (ICD-10 - M46.1) Sacral pain is minimal. Nov,hronic pain (ICD-10 - G89.29) Continue with current treatment plan [facility] Other 05-18-2022 Evaluation note* Encounter Date Diagnosis Assessment Notes Treatment Notes Treatment Clinical Notes October, Lumbar radiculopathy (ICD-10 - M 54.16) 70 year old female here for follow up status post left sacroiliac joint injection under fluoroscopic guidance. Patient reports 70-80% pain relief and increased function in standing, walking and dailyfunction following procedure. She voices complaints of left sided buttock back pain with radiation to the anterior aspect of the left thigh to the posterior aspect of calf. Anatomy of spine discussedin detail with patient in regards to patients condition. Patient is a candidate for a L3,4 transforaminal epidural steroid injection on the left side under fluoroscopic guidance. Risks and benefits of procedure explained to patient; patient verbalizes understanding. October,acroiliitis (ICD-10 - M46.1) Patient reports 70-80% pain relief and increased function following procedure October,hronic pain (ICD-10 - G89.29) Continue with current treatment plan [facility] Other 05-09-2022 Evaluation note* Encounter Date Diagnosis [...] recommend proceeding with an left SI joint inje ction. Risks and benefits of procedure explained to patient; patient verbalizes understanding. October,hronic pain (ICD-10 - G89.29)Follow up after procedure. October,Lumbar radiculopathy (ICD-10 - M54.16)Stable. October,rimary osteoarthritis of left hip (ICD-10 - M16.12)Consider left hip and greater trochanteric bursa injection in the future. [facility] Other 04-19-2022 Evaluation note* Encounter Date Diagnosis Assessment Notes Treatment Notes Treatment Clinical Notes Sep, Lumbar radiculopathy (ICD-10 - M 54.16) 70 year old female presents with complaints of left sided low back/buttock pain with radiation downthe outer aspect of the left lower extremity [...] procedure explained to patient; patient verbalizes understanding. Sep,acroiliitis (ICD-10 - M46.1) In the future if the pain persists, we can consider proceeding with a bilateral sacroiliac joint injection under fluoroscopic guidance. Sep,hronic pain (ICD-10 - G89.29) Proceed with current treatment plan. Patient is aware she must hold her Plavis and Aspirin for 7 days prior to procedure Sep,therMedical decision making shows a new problem to me with further workup planned or suggested with thepotential for extensive treatment options that were considered with the most applicable given this patient's situation as noted above. Treatment options considered include a combination of physical th erapy approaches, pharmacologic management, and interventional procedures. Those most applicable tothe patient were discussed at this time. Risk [...] prolonged functional impairment requiring constant patient reassessment andhigh-level medical decision making. The amount and complexity of data reviewed is high given that patient labs, radiology reports, and other test were obtained, reviewed and summarized as applicable from the physician portal and/or outside medical records. Pertinent positive and negative findings were considered in medical decision-making. Harrell Wisembly Other Consult note* Clinical Note Date No Information [facility] Work Phone: Discharge summary* Clinical Note Date No Information [facility] Work Phone: Evaluation noteNo InformationNortShriners [facility] [employer] Other Evaluation noteNo assessment information available [facility] Work Phone: Evaluation note* Diagnosis Onset Date Resolution Status Lumbar stenosis with neurogenic claudica tion acute [facility] Work Phone: Evaluation note* Diagnosis Onset Date Resolution Status Lumbar stenosis with neurogenic claudica tion acuteCAD (coronary artery disease)acuteDiabetes mellitus, type 2acute HyperlipidemiaacuteHypertensionacuteImpaired mobility and enduranceacuteLumbar stenosis with neurogenic claudicationacuteMorbid obesity with body mass index (BMI) of 45.0 to 49.9 in adultacuteMyocardial infarctionacuteSleep apnea with use of nocturnal bilevel positive airway pressure (BPAP)acute [facility] Work Phone: Evaluation note* Diagnosis COVID- Primary NSTEMI (non-ST elevated myocardial infarction) ([facility]) Acute myocardial infarction, subendocardial infarction, episode of care unspecified Acute on chronic diastolic heart failure ([facility]) Acute on chronic diastolic heart failure Type 2 diabetes mellitus with hyperglycemia, with long-term current use of insulin ([facility]) 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) Morbid (severe) obesity due to excess calories (E66.01) Body mass index [BMI] 45.0-49.9, adult (Z68.42) 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 ([facility]) documented in this encounter [facility] HealthcareEvaluation note* Diagnosis Onset Date Resolution Status History of lumbar fusion acuteSpondylolisthesis, lumbar regionacute [facility] Work Phone: Evaluation note* Diagnosis Acute right-sided low back pain with right-sided sciatica- Primary Right lumbar radiculopathy Thoracic or lumbosacral neuritis or radiculitis, unspecified Muscle spasm Spasm of muscle documented in this encounter [facility] HealthcareEvaluation note* Diagnosis Spinal stenosis of lumbar region without neurogenic claudication- Primary Right lumbar radiculopathy Thoracic or lumbosacral neuritis or radiculitis, unspecified Difficulty walking Difficulty in walking documented in this encounter [facility] HealthcareEvaluation note* Diagnosis Type 2 diabetes mellitus with hyperglycemia, with long-term current use of insulin ([facility])- Primary Abnormal MRI, lumbar spine documented in this encounter [facility] HealthcareEvaluation note* Diagnosis Diabetes mellitus due to underlying condition with diabetic polyneuropathy, without long-term current use of insulin ([facility])- Primary Pain due to onychomycosis of toenails of both feet Peripheral venous insufficiency Unspecified venous (peripheral) insufficiency documented in this encounter [facility] HealthcareEvaluation note* Diagnosis Burning with urination Dysuria documented in this encounter [facility] HealthcareEvaluation note* Diagnosis Acute cystitis with hematuria- Primary documented in this encounter [facility] HealthcareEvaluation note* Diagnosis Acute right-sided back pain with sciatica- Primary Acute right-sided low back pain with right-sided sciatica documented in this encounter [facility] HealthcareEvaluation note* Diagnosis Acute right-sided back pain with sciatica- Primary Acute right-sided low back pain with right-sided sciatica documented in this encounter [facility]* Diagnosis Acute right-sided back pain with sciatica- Primary Acute right-sided low back pain with right-sided sciatica documented in this encounter [facility] HealthcareEvaluation note* Diagnosis Peripheral venous insufficiency- Primary Unspecified venous (peripheral) insufficiency Onychomycosis Dermatophytosis of nail Toe pain, bilateral Diabetes mellitus due to underlying condition with diabetic polyneuropathy, without long-term current use of insulin ([facility]) documented in this encounter [facility] HealthcareEvaluation note* Diagnosis Acute right-sided back pain with sciatica- Primary Acute right-sided low back pain with right-sided sciatica documented in this encounter [facility] HealthcareEvaluation note* Diagnosis 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 ([facility])- Primary Type 2 diabetes mellitus with hyperglycemia, with long-term current use of insulin ([facility]) Acute on chronic diastolic heart failure ([facility]) Acute on chronic diastolic heart failure documented in this encounter [facility] HealthcareEvaluation note* Diagnosis Diabetic polyneuropathy associated with diabetes mellitus due to underlying condition ([facility])- Primary Bilateral carpal tunnel syndrome Carpal tunnel syndrome [facility]* Diagnosis TIA (transient ischemic attack)- Primary Unspecified transient cerebral ischemia Bilateral carpal tunnel syndrome Carpal tunnel syndrome [facility] Diagnosis Type 2 diabetes mellitus with diabetic polyneuropathy, with long-term current use of insulin ([facility])- Primary Chronic systolic congestive heart failure ([facility]) Muscle weakness (generalized) Peripheral venous insufficiency Unspecified venous (peripheral) insufficiency 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, limited to breakdown of skin ([facility]) Cellulitis of left lower extremity Type 2 diabetes mellitus with other specified complication, with long-term current use of insulin documented in this encounter [facility]* Diagnosis Type 2 diabetes mellitus with diabetic polyneuropathy, with long-term current use of insulin ([facility])- Primary Chronic systolic congestive heart failure ([facility]) 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, limited to breakdown of skin ([facility]) Cellulitis of left lower extremity Morbid obesity ([facility]) Morbid obesity Non compliance w medication regimen documented in this encounter [facility]* Diagnosis Diabetes mellitus due to underlying condition with diabetic polyneuropathy, without long-term current use of insulin ([facility])- Primary Pain due to onychomycosis of toenails of both feet Peripheral venous insufficiency Unspecified venous (peripheral) insufficiency documented in this encounter [facility]* Diagnosis Routine general medical examination at health care facility- Primary Routine general medical examination at a health care facility ACP (advance care planning) Other specified counseling Type 2 diabetes mellitus with diabetic polyneuropathy, with long-term current use of insulin ([facility]) Type 2 diabetes mellitus with hyperglycemia, with long-term current use of insulin ([facility]) Rheumatoid arthritis, unspecified Estrogen deficiency Other ovarian failure Breast screening Breast screening, unspecified documented in this encounter [facility]* Diagnosis Diabetes mellitus due to underlying condition with diabetic polyneuropathy, without long-term current use of insulin ([facility])- Primary Pain due to onychomycosis of toenails of both feet Peripheral venous insufficiency Unspecified venous (peripheral) insufficiency documented in this encounter [facility]* Diagnosis Type 2 diabetes mellitus with diabetic polyneuropathy, with long-term current use of insulin ([facility])- Primary Chronic systolic congestive heart failure ([facility]) Muscle weakness (generalized) Peripheral venous [...] Other primary cardiomyopathies documented in this encounter [facility]* Diagnosis Type 2 diabetes mellitus with diabetic polyneuropathy, with long-term current use of insulin (HCC) documented in this encounter [facility] HealthcareEvaluation note* Diagnosis Chronic systolic congestive heart [...] venous (peripheral) insufficiency documented in this encounter [facility] HealthcareEvaluation note* Diagnosis Gastroesophageal reflux disease, unspecified whether esophagitis present documented in this encounter [facility] HealthcareHistory and physical note* Clinical Note Date No Information [facility] Work Phone: History general Narrative - Reported* Type Description Date Medical History diabetes Medical Historyobstructive sleep apneaSurgical Historytotal hysterectomySurgical Historyhernia repairSurgical Historyneck mass removal [employer] Other History general Narrative - Reported* Type Description Date Medical History diabetes Medical Historyobstructive sleep apneaSurgical Historytotal hysterectomySurgical Historyhernia repairSurgical Historyneck mass removalHospitalization HistorySee Above [employer] Other Hospital course Narrative No data available for this section [facility] Hospital Discharge instructions Additional Instructions DISCHARGE INSTRUCTIONS [...] back spasm 20 minutes every 1-[facility] Work Phone: Hospital Discharge instructionsAmbulatory Orders* Referral to Pain Management Location: None [facility] Work Phone: Hospital Discharge instructionsAdditional Instructions SNF TO MANAGE: PT/OT to eval and treat Monitor VS per protocol Monitor FSBS ACHS Monitor daily weights Monitor Ortho. and pain assessment--Right hip pain Monitor GI, Cardiac and Respiratory assessments--Anasarca, CHF, Constipation Monitor Skin assessments Skin care BID--Clean rash with Theraworx protect foam Daily dressing change to bilateral heels unstageable pressure injuries, right foot and ankle ulcers, left ankle ulcers-- *clean with vashe, wipe free loose debris, apply hydrogel, telfa and secure with kerlix Daily dressing change to left and right toes and left lateral foot-- *clean wounds and blisters with vashe, paint wounds with betadine, calcium alginate between toes, 4x4s and secure with kerlix roll Dressing change every 3 days to coccyx stage 2 pressure injury and right buttock stage 3 pressure injury-- *clean with vashe, apply mepilex border foam Off load bilateral heels and turn and reposition every 2 hours Dietitian recommendations--Magic Cup, 1 container, BID with meals Follow and provide education on CHF instructions High risk fall precautions Care [facility] be [facility] Work Phone: InstructionsNot on filedocumented in this encounter [facility]Not on filedocumented in this encounter [facility]InstructionsNot on filedocumented in this encounter [facility]* Clinical Note Date No Information [facility] Work Phone: Progress note No data available for this section [facility] Reason for referral (narrative)* Reason For Referral No Information [facility] Work Phone: Reason for referral (narrative)* Consultation (Routine) - Pending ReviewSpecialtyDiagnoses / ProceduresReferred By Contact Referred To ContactNeurology Diagnoses Bilateral carpal tunnel syndrome Robbi Uribe MD [address] [place] [address], [address] [place] [address] Casey العلي MD [address] [place] [address], [address] [place] [address] Referral IDStatusReasonStart DateExpiration DateVisits RequestedVisits [id number] Review Specialty Services Required CityCivReason for referral (narrative)No reason for referral information availableThe [facility] Work Phone: Reason for visit NarrativeNeurosurgery Referral Update Harrell Wisembly Other reason for visit Narrative* Consultation (Routine) - Pending ReviewSpecialtyDiagnoses / ProceduresReferred By ContactReferred To ContactNeurology Diagnoses Bilateral carpal tunnel syndrome Robbi Uribe MD [address] [place] [address], [address] [place] [address] Casey العلي MD [address] [place] [address], [address] [place] [address] Referral IDStatSouthern [facility] DateExpiration DateVisits RequestedVisits [id number] Review Specialty Services Required [facility] Summary Purpose Family History No Family History Records Found Relationship Condition Age at Onset Recorded Date/T mirella father Diabetes mellitus Unknown HypertensionUnknownNot SpecifiedMalignant neoplasm of skinUnknown Relationship Condition Age at Onset Recorded Date/T mirella father Diabetes mellitus Unknown HypertensionUnknownNot SpecifiedMalignant neoplasm of skinUnknownNot Specified Diabetes mellitusUnknownHeart diseaseUnknownMalignant neoplasmUnknown Family Member Type Diagnosis Age At Onset Father Problem (finding) High cholester ol ProblemFamily history of Diabetes mellitusMaternal GrandfatherProblem (finding) Family history of Cancer, breastMotherProblem (finding)ArthritisProblemFamily history of Macular degenerationFatherProblem (finding)HypertensionProblemFamily history of Cardiovascular disease Relationship Condition Age at Onset Recorded Date/T mirella father Diabetes mellitus Unknown HypertensionUnknownmotherMalignant neoplasm of skinUnknownmotherDiabetes mellitusUnknownHeart diseaseUnknownMalignant neoplasmUnknown Relationship Condition Age at Onset Recorded Date/T mirella father Diabetes mellitus Unknown HypertensionUnknownmotherMalignant neoplasm of skinUnknownHeart diseaseUnknown Advance Directives No Advanced Directives Records Found Advance Directive Response Recorded Date/ Time Advance Directives No December 11 10:57am Advance Directive Response Recorded Date/ Time Advance Directives No December 11 9:57am Directive Yes / No Effective Date File Name No Information Reason for Referral SpecialtyDiagnoses / ProceduresReferred By ContactReferred To Contact Diagnoses Bilateral carpal tunnel syndrome Diabetic polyneuropathy associated with diabetes mellitus due to underlying condition ([facility]) Procedures EMG NCV Valorie Tran MD [address], [address] [place] [address] Referral IDStatusReasonStart DateExpiration DateVisits RequestedVisits [id number] Review/[id number] / ProceduresReferred By ContactReferred To Contact Diagnoses Right lumbar radiculopathy Procedures MR lumbar spine wo contrast Abraham Cesar MD [address] [facility] [address] [place] [address] Referral IDStatusReasonStart DateExpiration DateVisits RequestedVisits [id number]/ Reason leg strengthening, g ait training, balance Diagnosis 1 Spondylolisthesis, l umbar region (M43.16) Referral Organization [facility] Referring Provider First Name Abner Referring Provider Last Name Janina Referring Provider Specialty Neurologica l Surgery Referred Organization [facility] Referred Address ,[place], [place],[address] Referred Provider Specialty Physical The rapist Referral Priority Routine Reason Evaluate and Treat O utPatient PT in [place] for Gait Training and Leg Strengthening Diagnosis 1 Lumbar radiculopathy (M54.16) Referral Organization [facility] u[facility]gery Referring Provider First Name Abner Referring Provider Last Name Janina Referring Provider Specialty Neurologica l Surgery Referred Organization [facility] Sched uling Referred Address [address] [place], [place],[address] Referred Provider Specialty Physical The rapist Referral Priority Routine Reason eval and treat Diagnosis 1 Lumbar radiculopathy (M54.16) Referral Organization [facility] Pain Managemen t Referring Provider First Name Devang Referring Provider Last Name Keri Referring Provider Specialty Pain Medici ne Referred Organization [facility] Last anthony Co Referred Provider Abraham Georges Referred Address [address],[place], [place],[id number] Referred Provider Specialty Neurosurgery Referral Priority Routine Chief Complaint and Reason for Visit Chief Complaint m43.16 g95.9 z78.0 m43.16 g95.9 z78.0 Chief Complaint m43.16 g95.9 z78.0 m43.16 g95.9 z78.0 Spondylolisthesis Chief Complaint m43.16 g95.9 z78.0 m43.16 g95.9 z78.0 Spondylolisthesis Spondylolisthesis Chief Complaint m43.16 g95.9 z78.0 m43.16 g95.9 z78.0 Spondylolisthesis Spondylolisthesis SpondylolisthesisReason for VisitLumbar stenosis with neurogenic claudication Chief Complaint Spondylolisthesis Spondylolisthesis Spondylolisthesis Lumbar Stenosis s/p XLIF See orderReason for VisitLumbar stenosis with neurogenic claudication CAD (coronary artery disease) Diabetes mellitus, type 2 Hyperlipidemia Hypertension Impaired mobility and endurance Lumbar stenosis with neurogenic claudication Morbid obesity with body mass index (BMI) of 45.0 to 49.9 in adult Myocardial infarction Sleep apnea with use of nocturnal bilevel positive airway pressure (BPAP) Chief Complaint Spondylolisthesis Lumbar Stenosis s/p XLIF See order gait training m43.16Reason for VisitLumbar stenosis with neurogenic claudication CAD (coronary artery [...] Chief Complaint m43.16 1 year po xlif w/xrayReason for VisitHistory of lumbar fusion Spondylolisthesis, lumbar region Chief Complaint increased pain, [...] 11:15am History of lumbar fusion April 08, 024 11:15am Failed back syndrome May 17, [...] Wound infection November 29, 2024 10:3 4am Chief Complaint Admit Date Open Wound March 15, 2025 11 :15am WAS SEEN IN [facility] 03/15/25 BAD TOE March 16, 2025 10:22am Reason for Visit Admit Date Blister of right foot March 15, 2025 11:15am Diabetes mellitus, type 2 March 15, 11:15am Edema of both lower extremities March 15, 2025 11:15am Impaired mobility and activities of reinaldo y living March 15, 2025 11:15am Neuropathic pain March 15, 2025 11 :15am Pressure injury of right buttock, stage 3 March 15, 2025 11:15am Pressure injury of right ischium, stage 3 March 15, 2025 11:15am Ulcer of left heel March 15, 2025 11 :15am Ulcer of right heel March 15, 2025 11 :15am Venous insufficiency (chronic) (peripher al) March 15, 2025 11:15am Venous stasis dermatitis of both lower e xtremities March 15, 2025 11:15am Wound infection March 15, 2025 11 :15am Chief Complaint Admit Date Open Wound March 15, 2025 11 :15am WAS SEEN IN [facility] 03/15/25 BAD TOE March 16, 2025 10:22am BILATERAL FOOT WOUNDS March 25, 2025 1:42pm Reason for Visit Admit Date Blister of right foot March 15, 2025 11:15am Diabetes mellitus, type 2 March 15 11:15am Edema of both lower extremities March 15, 2025 11:15am Impaired mobility and activities of reinaldo y living March 15, 2025 11:15am Neuropathic pain March 15, 2025 11 :15am Pressure injury of right buttock, stage 3 March 15, 2025 11:15am Pressure injury of right ischium, stage 3 March 15, 2025 11:15am Ulcer of left heel March 15, 2025 11 :15am Ulcer of right heel March 15, 2025 11 :15am Venous insufficiency (chronic) (peripher al) March 15, 2025 11:15am Venous stasis dermatitis of both lower e xtremities March 15, 2025 11:15am Wound infection March 15, 2025 11 :15am Blister of right foot March 16, 2025 10:22am Diabetes mellitus, type 2 March 16 10:22am Neuropathic pain March 16, 2025 10 :22am Ulcer of left heel March 16, 2025 10 :22am Ulcer of right heel March 16, 2025 10 :22am Uncontrolled diabetes mellit type 2 with atherosclerosis of arteries of March 16, 2025 10:22am Chief Complaint Admit Date Open Wound March 15, 2025 11 :15am WAS SEEN IN [facility] 03/15/25 BAD TOE March 16, 2025 10:22am BILATERAL FOOT WOUNDS March 25, 2025 1:42pm hip pain March 29, 2025 5 :00pm Reason for Visit Admit Date Blister of right foot March 15, 2025 11:15am Diabetes mellitus, type 2 March 15 11:15am Edema of both lower extremities March 15, 2025 11:15am Impaired mobility and activities of reinaldo y living March 15, 2025 11:15am Neuropathic pain March 15, 2025 11 :15am Pressure injury of right buttock, stage 3 March 15, 2025 11:15am Pressure injury of right ischium, stage 3 March 15, 2025 11:15am Ulcer of left heel March 15, 2025 11 :15am Ulcer of right heel March 15, 2025 11 :15am Venous insufficiency (chronic) (peripher al) March 15, 2025 11:15am Venous stasis dermatitis of both lower e xtremities March 15, 2025 11:15am Wound infection March 15, 2025 11 :15am Blister of right foot March 16, 2025 10:22am Diabetes mellitus, type 2 March 16 10:22am Neuropathic pain March 16, 2025 10 :22am Ulcer of left heel March 16, 2025 10 :22am Ulcer of right heel March 16, 2025 10 :22am Uncontrolled diabetes [facility] type 2 with atherosclerosis of arteries of March 16, 2025 10:22am Acute pain of right hip March 29 5:00pm Diabetes mellitus, type 2 March 29, 2025 5:00pm Impaired mobility and activities of reinaldo y living March 29, 2025 5:00pm Venous insufficiency (chronic) (peripher al) March 29, 2025 5:00pm Reason for Visit Admit Date Blister of right foot March 15, 2025 11:15am Edema of both lower extremities March 15, 2025 11:15am Neuropathic pain March 15, 2025 11 :15am Pressure injury of right ischium, stage 3 March 15, 2025 11:15am Ulcer of left heel March 15, 2025 11 :15am Ulcer of right heel March 15, 2025 11 :15am Venous stasis dermatitis of both lower e xtremities March 15, 2025 11:15am Wound infection March 15, 2025 11 :15am Diabetes mellitus, type 2 March 15 11:15am Impaired mobility and activities of reinaldo y living March 15, 2025 11:15am Pressure injury of right buttock, stage 3 March 15, 2025 11:15am Venous insufficiency (chronic) (peripher al) March 15, 2025 11:15am Blister of right foot March 16, 2025 10:22am Neuropathic pain March 16, 2025 10 :22am Ulcer of left heel March 16, 2025 10 :22am Ulcer of right heel March 16, 2025 10 :22am Uncontrolled diabetes [facility] type 2 with atherosclerosis of arteries of March 16, 2025 10:22am Diabetes mellitus, type 2 March 16 10:22am Acute pain of right hip March 29 5:00pm Diabetes mellitus, type 2 March 29, 2025 5:00pm Impaired mobility and activities of reinaldo y living March 29, 2025 5:00pm Pressure injury of right buttock, stage 3 March 29, 2025 5:00pm Venous insufficiency (chronic) (peripher al) March 29, 2025 5:00pm Additional Source Comments INFORMATION SOURCE (unrecogn ized section and content) DATE CREATED AUTHOR 08/19/2018 [facility] DATE CREATED AUTHOR AUTHOR'S ORGANIZ ATION 11/19/2022 [facility] DATE CREATED AUTHOR AUTHOR'S ORGANIZ ATION 12/16/2023 [facility] DATE CREATED AUTHOR AUTHOR'S ORGANIZ ATION 07/09/2024 [facility] DATE CREATED AUTHOR AUTHOR'S ORGANIZ ATION 07/10/2024 [facility] DATE CREATED AUTHOR AUTHOR'S ORGANIZ ATION 07/11/2024 [facility] DATE CREATED AUTHOR AUTHOR'S ORGANIZ ATION 11/27/2024 [facility] DATE CREATED AUTHOR AUTHOR'S ORGANIZ ATION 03/03/2025 [facility] EP[facility] DATE CREATED AUTHOR AUTHOR'S ORGANIZ ATION 04/03/2025 [facility] DATE CREATED AUTHOR AUTHOR'S ORGANIZ ATION 04/17/2025 [facility] DATE CREATED AUTHOR AUTHOR'S ORGANIZ ATION 04/18/2025 [facility] REASON FOR VISIT (unrecogniz ed section and content) ReasonCommentsFollow-upAdmitted to [facility]23 dx: Covid,CHF exac., NSTEMI discharged home 07/07/23 started on farxiga, coreg stopped labetolol pt had follow up appt with cardiology 07/16/23ReasonCommentsMed RefillbaclofenReason CommentsMed RefillTizanidineReasonCommentsDiabetesReasonCommentsDM Foot CareDm NailsSpecialtyDiagnoses / ProceduresReferred By ContactReferred To Contact Physical Therapy Diagnoses Acute right-sided low back pain with right-sided sciatica Procedures [place] OFFICE/OUTPATIENT [facility] 60 MINUTES Nati Virk, [address] [place] [address] Silva Rhoades, PT Referral IDStatusReasonStart DateExpiration DateVisits RequestedVisits [id number] Specialty Services Required [id number] Foot CareDM NailsReferral IDStatusReason Start DateExpiration DateVisits RequestedVisits [id number] Specialty Services Required [id number] DateCommentsNEW PATIENT RPHWYVTC42/28/2024 ReasonCommentsDiabetesLeg SwellingLeft lower legsores on bilateral feetPt is requesting referral to wound clinic at [facility] last o/v she was started on Cephalexin but did not get it until just recently so still has a week left of the ATB. He leg is not seeping like it was but is very dry and would like to know what shecan use on the dryness. She also will have her 1st appt with wound care today for her foot.Medication ProblemShe would like to discuss going back on Trulicity since she is gaining weight off of it.Reason CommentsDM Foot CareDm nail careReasonCommentsDiabetesEdemaface to face for lift chairReasonCommentstoe blisterPt admits she has had a sore on her great toe of her right foot for about 2 weeks, blister has popped 2 times. Also has a sore on her finger on her right middle finger that she has been on ATB for and feels it is healing.ReasonCommentsMed Refill Care Teams (unrecognized sec tion and content) Team Status: Active Member Role Status Michael Cesar II MD Primary Care Provider Active Team Status: Active Member Role Status Michael Cesar II MD Primary Care Provider Active Start: March 15, 2025 Tita Lomeli ProviderActiveStart: March 15, 2025 Team Status: Inactive Member Role Status Michael Cesar II MD Primary Care Provider Active Start: March 16, 2025 End: March 16Ishan Solis ProviderActiveStart: March 16, 2025 End: March 16, 2025 Team Status: Inactive Member Role Status Michael Cesar II MD Primary Care Provider Active Start: October 21, 2024 End: October 21, 2024Ishan Moreno ProviderActiveStart: October 21, 2024 End: October 21, 2024 Team Status: Active Member Role Status Michael Cesar II MD Primary Care Provider Active Start: November 29, 2024 Molly Gallegos , ProviderActiveStart: November 29, 2024 Team Status: Inactive Member Role Status Dates Abraham Cesar II MD Primary Care Provider Active Start: December 07, 2024 End: December 07, 2024Molly Gallegos , SEPNAt ProviderActiveStart: December 07, 2024 End: December 07, 2024 Team Status: Active Member Role Status Dates Abraham Cesar II MD Primary Care Provider Active Start: October 11, 2024 Molly Mona Gallegos davis ProviderActiveStart: October 11, 2024 Team Status: Active Member Role Status Dates Abraham Cesar II MD Primary Care Provider Active Start: October 21, 2024 Ishan Moreno ProviderActiveStart: October 21, 2024 Team Status: Inactive Member Role Status Dates Abner Roa MD Attending Provider Active Abraham Cesar II [facility] ProviderActive Team Status: Inactive Member Role Status Michael Cesar II MD Primary Care Provider Active Ishan Moreno ProviderActive Team Status: Inactive Member Role Status Michael Cesar II MD Primary Care Provider Active Kylee Moreno Provider, Attending ProviderActive Team Status: Inactive Member Role Status Michael Cesar II MD Primary Care Provider Active Kylee Hebert Provider, Attending ProviderActiveLouann Mancilla RN Other ProviderActiveDegibson Linares RNOther ProviderActiveJessica eBnson , KENDALL Other ProviderActiveMicchris Borges RNOther ProviderActiveSherry Luong RNOther ProviderActiveNanci Gardner RNOther ProviderActiveRachanell Schwartz MD Other ProviderActiveAnaxiang Nash MDOther ProviderActiveLisa Dunn Dials , RICE DRIER Other ProviderActiveRonobimandy Dickens , DOOther ProviderActiveMusricardo Lacy MD Other ProviderActiveGraeme Davey , DOOther ProviderActiveJames Child MDOther ProviderActiveChel Juarez MDOther ProviderActiveLyALLAN Randall-BCOther ProviderActiveJustine Mercedes MDOther ProviderActiveRegan Hernandez MDOther ProviderActiveAdis Cote MDOther ProviderActiveMichael Vang MD Other ProviderActiveMichael Frings , DOOther ProviderActiveThomas Anthony Bunn MD Other ProviderActiveFirashley Mckeon MDOther ProviderActiveEarbrittany Weston MDOther ProviderActiveLatonia Ely NP-Pingher MichelineActiveRoman Rosales MDOther ProviderActiveRiccardo Jenkins MDOther ProviderActiveEdie Granados MD Other ProviderActiveAnoMcclain MDOther ProviderActiveMarrey Swan , DOOther ProviderActiveHani Nigel Trejo MDOther ProviderActiveNeal R Ashley , DO Other ProviderActiveAnthony M Miniaci , DOOther ProviderActiveLinda Obika , RICE DRIER Other ProviderActiveShawn Phillip Albarado , DOOther ProviderActiveObabrittniah Mona Montes MDOther ProviderActiveFariha Flowers RNOther ProviderActive Team Status: Active Member Role Status Dates Abraham Cesar II MD Primary Care Provider Active Ishan Moreno ProviderActiveTeam MemberRelationshipSpecialtyStart DateEnd Date Abraham Cesar MD [address] [place] [address] PCP - GeneralInternal Medicine10/21/22 Abraham Cesar MD [address] [place] [address] PCP - [facility]10/31/22 Team Status: Inactive Member Role Status Dates Abraham Cesar II MD Primary Care Provider Active Start: October 23, 2023 End: October 22Ishan Lopez ProviderActiveStart: October 23, 2023 End: October 23, 2023 Name Effective Dates (start - stop) Status Members No Information Team MemberRelationshipSpecialtyStart DateEnd Date Abraham Cesar MD [address] [place] [address] PCP - GeneralInternal Medicine10/21/22 Abraham Cesar MD [address] [place] [address] PCP - [facility]10/31/22Team MemberRelationshipSpecialtyStart DateEnd Date Abraham Cesar MD [address] [place] [address] PCP - GeneralInternal Medicine10/21/22 Abraham Cesar MD [address] [place] [address] PCP - [facility]10/31/22Team MemberRelationshipSpecialtyStart DateEnd Date Abraham Cesar MD [address] [place] [address] PCP - GeneralInternal [facility]10/21/22 Abraham Cesar MD [address] [place] [address] PCP - [facility]10/31/22Team MemberRelationshipSpecialtyStart DateEnd Date Abraham Cesar MD [address] [place] [address] PCP - GeneralInternal [facility]10/21/22 Abraham Cesar MD [address] [place] [address] PCP - [facility]10/31/22Team MemberRelationshipSpecialtyStart DateEnd Date Abraham Cesar MD [address] [place] [address] [facility]10/21/22 Abraham Cesar MD [address] [place] [address] [facility]10/31/22 Team Status: Inactive Member Role Status Dates Abraham Cesar II MD Primary Care Provider Active Start: April 08, 2024 End: April 08, 2024Urmila Guzman , APRNAttendavis ProviderActiveStart: April 08, 2024 End: April 08, 2024Team MemberRelationshipSpecialtyStart DateEnd Date Abraham Cesar MD [address] [place] [address] [facility]/21/22 Abraham Cesar MD [address] [place] [address] [facility] - [facility]10/31/22Team MemberRelationshipSpecialtyStart DateEnd Date Abraham Cesar MD [address] [place] [address] [facility] Abraham Cesar MD [address] [place] [address] PCP - [facility]10/31/22Team MemberRelationshipSpecialtyStart DateEnd Date Abraham Cesar MD [address] [place] [address] [facility]22 Abraham Cesar MD [address] [place] [address] PCP - O [facility]10/31/22Team MemberRelationshipSpecialtyStart DateEnd Date Abraham Cesar MD [address] [place] [address] [facility]/21[facility]22 Abraham Cesar MD [address] [place] [address] PCP - [facility]10/31/22Team MemberRelationshipSpecialtyStart DateEnd Date Abraham Cesar MD [address] [place] [address] [facility]22 Abraham Cesar MD [address] [place] [address] PCP - [facility]10/31/22Team MemberRelationshipSpecialtyStart DateEnd Date Abraham Cesar MD [address] [place] [address] [facility]22 Abraham Cesar MD [address] [place] [address] PCP - [facility]10/31/22Team MemberRelationshipSpecialtyStart DateEnd Date Abraham Cesar MD [address] [place] [address] [facility]22 Abraham Cesar MD [address] [place] [address] PCP - [facility]10/31/22Team MemberRelationshipSpecialtyStart DateEnd Date Abraham Cesar MD [address] [place] [address] PCP - [facility]10/21/22 Abraham Cesar MD [address] [place] [address] PCP - [facility]10/31/22Team MemberRelationshipSpecialtyStart DateEnd Abraham Cesar MD [address] [place] [address] PCP - [facility]10/21/22 Abraham Cesar MD [address] [place] [address] [facility]10/31/22Team MemberRelationshipSpecialtyStart DateEnd Abraham Cesar MD [address] [place] [address] PCP - [facility]10/21/22 Abraham Cesar MD [address] [place] [address] [facility]10/31/22Team MemberRelationshipSpecialtyStart DateEnd Abraham Cesar MD [address] [place] [address] PCP - [facility]10/21/22 Abraham Cesar MD [address] [place] [address] [facility]10/31/22 Team Status: Inactive Member Role Status Dates Abraham Cesar II MD Primary Care Provider Active Start: May 17, 2024 End: May 17, 2024Devang Maicol Keri , MDAttending ProviderActiveStart: May 17, 2024 End: May 17, 2024 Team Status: Inactive Member Role Status Dates Abraham Cesar II MD Primary Care Provider Active Start: May 19, 2024 End: May 19, 2024Sherif Maicol Saavedra , MDAttending ProviderActiveStart: May 19, 2024 End: May 19, 2024 Team Status: Active Member Role Status Dates Abraham Cesar II MD Primary Care Provider Active Start: May 19, 2024 Devang Saavedra , MDAttending Provider, Other ProviderActiveStart: May 19, 2024 Team Status: Inactive Member Role Status Dates Abraham Cesar II MD Primary Care Provider Active Start: June 13, 2024 End: June 13, 2024Amaury Chin , DOAttending ProviderActiveStart: June 13, 2024 End: June 13, 2024Team MemberRelationshipSpecialtyStart DateEnd Date Abraham Cesar MD [address] [facility] [address] [place] [address] PCP - GeneralInternal Medicine10/21/22 Abraham Cesar MD [address] [facility] [address] [place] [address] PCP - [facility]/31/22Team MemberRelationshipSpecialtyStart DateEnd Date Abraham Cesar MD [address] [facility] [address] [place] [address] PCP - GeneralInternal Medicine10/21/22 Abraham Cesar MD [address] [facility] [address] [place] [address] PCP - [facility]10/31/22Team MemberRelationshipSpecialtyStart DateEnd Date Abraham Cesar MD [address] [place] [address] PCP - GeneralInternal Medicine10/21/22 Abraham Cesar MD [address] [place] [address] PCP - [facility]10/31/22Team MemberRelationshipSpecialtyStart DateEnd Date Abraham Cesar MD [address] [place] [address] PCP - GeneralInternal Medicine10/21/22 Abraham Cesar MD [address] [place] [address] PCP - [facility]10/31/22Team MemberRelationshipSpecialtyStart DateEnd Date Abraham Cesar MD [address] [place] [address] [facility]10/21/22 Abraham Cesar MD [address] [place] [address] PCP - [facility]10/31/22Team MemberRelationshipSpecialtyStart DateEnd Date bAraham Cesar MD [address] [place] [address] [facility]10/21/22 Abraham Cesar MD [address] [place] [address] PCP - [facility]10/31/22Team MemberRelationshipSpecialtyStart DateEnd Date Abraham Cesar MD [address] [place] [address] [facility]10/21/22 Abraham Cesar MD [address] [place] [address] PCP - [facility]10/31/22Team MemberRelationshipSpecialtyStart DateEnd Date Abraham Cesar MD [address] [place] [address] [facility]10/21/22 Abraham Cesar MD [address] [place] [address] PCP - [facility]10/31/22Team MemberRelationshipSpecialtyStart DateEnd Date Abraham Cesar MD [address] [place] [address] [facility]10/21/22 Abraham Cesar MD [address] [place] [address] PCP - [facility]10/31/22Team MemberRelationshipSpecialtyStart DateEnd Date Abraham Cesar MD [address] [place] [address] [facility]10/21/22 Abraham Cesar MD [address] [place] [address] PCP - [facility]10/31/22Team MemberRelationshipSpecialtyStart DateEnd Date Abraham Cesar MD [address] [place] [address] PCP - [facility]10/21/22 Abraham Cesar MD [address] [place] [address] PCP - [facility]10/31/22Team MemberRelationshipSpecialtyStart DateEnd Abraham Cesar MD [address] [place] [address] PCP - [facility]10/21/22 Abraham Cesar MD [address] [place] [address] PCP - [facility]10/31/22Team MemberRelationshipSpecialtyStart DateEnd Abraham Cesar MD [address] [place] [address] PCP - [facility]10/21/22 Abraham Cesar MD [address] [place] [address] PCP - [facility]10/31/22Team MemberRelationshipSpecialtyStart DateEnd Abraham Cesar MD [address] [place] [address] PCP - [facility]10/21/22 Abraham Cesar MD [address] [place] [address] PCP - [facility]10/31/22 Karine Foote LPN [address] [place] [address] 12/23/24Team MemberRelationshipSpecialtyStart DateEnd Date Abraham Cesar MD [address] [place] [address] PCP - GeneralInternal Medicine10/21/22 Abraham Cesar MD [address] [place] [address] PCP - [facility]10/31/22 Karine Foote LPN [address] [place] [address] 12/23/24Team MemberRelationshipSpecialtyStart DateEnd Date Abraham Cesar MD [address] [place] [address] PCP - GeneralInternal Medicine10/21/22 Abraham Cesar MD [address] [place] [address] PCP - [facility]10/31/22 Karine Foote LPN [address] [place] [address] 12/23/24Team MemberRelationshipSpecialtyStart DateEnd Date Abraham Cesar MD [address] [place] [address] PCP - GeneralInternal Medicine10/21/22 Abraham Cesar MD [address] [place] [address] PCP - [facility]10/31/22 Karine Foote LPN [address] [place] [address] 12/23/24Team MemberRelationshipSpecialtyStart DateEnd Date Abraham Cesar MD [address] [place] [address] PCP - GeneralInternal Medicine10/21/22 Abraham Cesar MD [address] [place] [address] PCP - [facility]10/31/22 Karine Foote LPN [address] [place] [address] 12/23/24Team MemberRelationshipSpecialtyStart DateEnd Date Abraham Cesar MD [address] [place] [address] PCP - GeneralInternal Medicine10/21/22 Abraham Cesar MD [address] [place] [address] PCP - [facility]10/31/22 Karine Foote LPN [address] [place] [address] 12/23/24Team MemberRelationshipSpecialtyStart DateEnd Date Abraham Cesar MD [address] [place] [address] PCP - GeneralInternal Medicine10/21/22 Abraham Cesar MD [address] [place] [address] PCP - [facility]10/31/22 Karine Foote LPN [address] [place] [address] 12/23/24Team MemberRelationshipSpecialtyStart DateEnd Date Abraham Cesar MD [address] [place] [address] PCP - GeneralInternal Medicine10/21/22 Abraham Cesar MD [address] [facility] [address] [place] [address] PCP - [facility]10/31/22 Karine Foote LPN [address] [facility] [address] [place] [address] 12/23/24 Team Status: Active Member Role/Relationship Status Dates Abraham Cesar II MD Primary Care Provider Active Team Status: Active Member Role/Relationship Status Dates Abraham Cesar II MD Primary Care Provider Active Start: March 15, 2025 Tita Lomeli ProviderActiveStart: March 15, 2025 Team Status: Inactive Member Role/Relationship Status Dates Abraham Cesar II MD Primary Care Provider Active Start: March 16, 2025 End: March 16Ishan Solis ProviderActiveStart: March 16, 2025 End: March 16, 2025 Team Status: Inactive Member Role/Relationship Status Dates Abraham Cesar II MD Primary Care Provider Active Start: March 25, 2025 End: March 25HOLLEY Harvey-Emeterio ProviderActiveStart: March 25, 2025 End: March 25, 2025Team MemberRelationshipSpecialtyStart DateEnd Date Abraham Cesar MD [address] [facility] [address] [place] [address] PCP - GeneralInternal Medicine10/21/22 Abraham Cesar MD [address] [facility] [address] [place] [address] PCP - [facility]10/31/22 Karine Foote LPN [address] [facility] [address] [place] [address] 12/23/24 Team Status: Active Member Role/Relationship Status Dates Abraham Cesar II MD Primary Care Provider Active Start: March 29, 2025 Lowell Roe ProviderActiveStart: March 29, 2025 James Child MDAdmit ProviderActiveStart: March 29, 2025 James Child MDAttending ProviderActiveStart: March 29, 2025 Team Status: Active Member Role/Relationship Status Dates Abraham Cesar II MD Primary Care Provider Active Start: March 29, 2025 Lowell Roe ProviderActiveStart: March 29, 2025 James Child MDAdmit ProviderActiveStart: March 29, 2025 James Child MDOther ProviderActiveStart: March 29, 2025 Awais Louis MDOther ProviderActiveStart: March 29, 2025 Chloe Collazo MDAttending ProviderActiveStart: March 29, 2025 Chloe Collazo MDOther ProviderActiveStart: March 29, 2025 Derrell Martinez , DOOther ProviderActiveStart: March 29, 2025 Fortunato Luna II, MDOther ProviderActiveStart: March 29, 2025 Smooth Terry , DOOther ProviderActiveStart: March 29, 2025 Team MemberRelationshipSpecialtyStart DateEnd Date Abraham Cesar MD [address] [facility] [address] [place] [address] PCP - GeneralInternal Medicine10/21/22 Abraham Cesar MD [address] [facility] [address] [place] [address] PCP - [facility]10/31/22 Karine Foote LPN [address] [facility] [address] [place] [address] 12/23/24Team MemberRelationshipSpecialtyStart DateEnd Date Abraham Cesar MD [address] [place] [address] PCP - GeneralInternal Medicine10/21/22 Abraham Cesar MD [address] [place] [address] PCP - [facility]10/31/22 Karine Foote LPN [address] [place] [address] 12/23/24Team MemberRelationshipSpecialtyStart DateEnd Date Abraham Cesar MD [address] [place] [address] PCP - GeneralInternal Medicine10/21/22 Abraham Cesar MD [address] [place] [address] PCP - [facility]10/31/22FridayMarce LPN [address] [place] [address] Licensed Practical NurseFamily Medicine09/03//07/02 Karine Foote LPN [address] [place] [address] 12/23/24Team MemberRelationshipSpecialtyStart DateEnd Date Abraham Cesar MD [address] [place] [address] PCP - GeneralInternal Medicine10/21/22 Abraham Cesar MD [address] [place] [address] PCP - [facility]10/31/22 Karine Foote LPN [address] [place] [address] 12/23/24Team MemberRelationshipSpecialtyStart DateEnd Date Abraham Cesar MD [address] [place] [address] PCP - GeneralInternal Medicine10/21/22 Abraham Cesar MD [address] [place] [address] PCP - [facility]10/31/22FridayMarce LPN [address] [place] [address] Licensed Practical NurseFamily Medicine Karine Foote LPN [address] [place] [address] 12/23/24Team MemberRelationshipSpecialtyStart DateEnd Date Abraham Ceasr MD [address] [place] [address] PCP - GeneralInternal Medicine10/21/22 Abraham Cesar MD [address] [place] [address] PCP - [facility]10/31/22FridayMarce LPN [address] [place] [address] Licensed Practical NurseFamily Medicine Karine Foote LPN [address] [place] [address] 12/23/24 Goals (unrecognized section and content) Goals [...] BE BASED ON THE PRIMARY CLINICAL RECORDS. [facility]about [facility]. provides no warranty or guarantee of the accuracy or completeness of information in this document.
== END 2025-04-19 13:14 | disposition home or self-care (01) ==
LOC: US 13:13
PROVIDERS: PCP Internal Medicine; Visit Provider Internal Medicine Interventional Cardiology
DX: L97.428 Non-pressure chronic ulcer of left heel and midfoot with other specified severity (principal); L97.418 Non-pressure chronic ulcer of right heel and midfoot with other specified severity; L97.409 Non-pressure chronic ulcer of unspecified heel and midfoot with unspecified severity
CPT/HCPCS: 93925